=== PATIENT | female | born 1955 | race Caucasian/White ===

== ENCOUNTER → 2018-02-11 10:48 | Outpatient (CLI) | payer MEDICARE, SELFPAY ==
--- NOTE | 2018-02-11 15:52 | PFTCOMP ---
COMPLETE PULMONARY FUNCTION TEST INTERPRETATION Brief HPI: Patient is a 62 year old female, currently under the care of Dr. Gustafson, who presents to [facility] for complete pulmonary function tests secondary to diagnosis of COPD. Respiratory therapist reports good effort and reproducible results. Interpretation: Forced expiration spirometry shows a moderate large airways obstructive ventilatory defect with an FEV1 of 66% predicted. There is a significant bronchodilator response in FEV1 and FVC by ATS criteria. Spirograms are of good quality and plateau slowly, indicating slowly emptying areas of the lungs. The respiratory flow volume loop shows decreased expiratory flow rates at all lung volumes consistent with airway obstruction. Lung volumes by body plethysmography show an elevated total lung capacity at 5.53 L, 159% predicted. FRC and RV are elevated out of proportion. Lung volume measurements are consistent with hyperinflation and air-trapping. Diffusion capacity by carbon monoxide is normal at 101% predicted. The airway resistance is elevated. Compared to previous pulmonary function tests from 10/16/2016, there has been no significant change. Impression: Partially reversible moderate large airways obstructive ventilatory defect resulting in air trapping with hyperinflation. These findings are consistent with a COPD/asthma overlap syndrome.
--- NOTE | 2018-02-11 15:55 | PFTCOMP_ITS ---
COMPLETE PULMONARY FUNCTION TEST INTERPRETATION Brief HPI: Patient is a 62 year old female, currently under the care of Dr. Gustafson , who presents to [facility] for complete pulmonary function tests secondary to diagnosis of COPD. Respiratory therapist reports good effort and reproducible results. Interpretation: Forced expiration spirometry shows a moderate large airways obstructive ventilatory defect with an FEV1 of 66% predicted. There is a significant bronchodilator response in FEV1 and FVC by ATS criteria. Spirograms are of good quality and plateau slowly, indicating slowly emptying areas of the lungs. The respiratory flow volume loop shows decreased expiratory flow rates at all lung volumes consistent with airway obstruction. Lung volumes by body plethysmography show an elevated total lung capacity at 5.53 L, 159% predicted. FRC and RV are elevated out of proportion. Lung volume measurements are consistent with hyperinflation and air-trapping. Diffusion capacity by carbon monoxide is normal at 101% predicted. The airway resistance is elevated. Compared to previous pulmonary function tests from 10/16/2016, there has been no significant change. Impression: Partially reversible moderate large airways obstructive ventilatory defect resulting in air trapping with hyperinflation. These findings are consistent with a COPD/asthma overlap syndrome.
== END ==
PROVIDERS: Family Provider Family Medicine; PCP Family Medicine; Visit Provider Internal Medicine Critical Care Medicine
DX: J44.9 Chronic obstructive pulmonary disease, unspecified (principal)
CPT/HCPCS: 94060; 94726; 94729

== ENCOUNTER → 2018-02-26 07:18 | Outpatient (CLI) | payer MEDICARE, SELFPAY ==
--- NOTE | 2018-02-26 07:20 | CT_ITS ---
STUDY: CT CHEST WITHOUT CONTRAST REASON FOR EXAM: Female, 62 years old. Pulmonary mass RADIATION DOSAGE (If Supplied By Facility): CTDIvol = ( 5.00 ) mGy, DLP = ( 159.13 ) mGycm TECHNIQUE: Transaxial imaging was performed without the administration of intravenous contrast material. Coronal and sagittal reformatted images were created. Individualized dose optimization techniques were used for this CT. COMPARISON: None FINDINGS: There are mild emphysematous changes noted in the lungs. There is a 7 mm spiculated nodule in the lingula (image 59 series 4). There are no pulmonary infiltrates or pleural effusions. There is no pneumothorax. The heart and pericardium are within normal limits. There is no thoracic lymphadenopathy. There is no evidence of thoracic aortic aneurysm. Images through the upper abdomen demonstrate no significant abnormality. There are no destructive osseous lesions. CT/Chest without Contrast IMPRESSION: Mild emphysema. 7 mm spiculated nodule in the lingula. A follow-up CT in 3-6 months is recommended. No pulmonary infiltrates or pleural effusions. Electronically Signed: Cruz Cai, at 17:46 EDT Tel , Service support ,
== END ==
PROVIDERS: Family Provider Family Medicine; PCP Family Medicine; Visit Provider Nurse Practitioner Acute Care
DX: R91.8 Other nonspecific abnormal finding of lung field (principal)
CPT/HCPCS: 71250

== ENCOUNTER → 2018-05-19 07:45 | Outpatient (CLI) | payer MEDICARE, SELFPAY ==
--- NOTE | 2018-05-19 07:46 | CT_ITS ---
STUDY: CT CHEST WITHOUT CONTRAST REASON FOR EXAM: Female, 63 years old. History of lung nodule. RADIATION DOSAGE (If Supplied By Facility): CTDIvol = ( 6.59 ) mGy, DLP = ( 205.78 ) mGycm TECHNIQUE: Transaxial imaging was performed without the administration of intravenous contrast material. Multiplanar coronal and sagittal images were reformatted. Individualized dose optimization techniques were used for this CT. COMPARISON: Comparison is made with prior study dated February 26, 2018. FINDINGS: There is a 1.2 cm hypodense nodule in the inferior aspect of the left lobe of the thyroid. Small bilateral axillary lymph nodes slightly more prominent on the left side. These are unchanged. Hyperinflation. Mild degree of emphysematous changes. There is a 1.1 cm spiculated nodule in the medial apex of the right lung. This is unchanged. The previously seen nodular density in the left upper lobe as decreased slightly in size. It presently measures 5.9 mm. Spiculation persists. No new dominant nodules are seen. There is no demonstrated pleural abnormality. There are calcifications of the coronary arteries. There are multiple small lymph nodes within the mediastinum, which are normal in size and morphology most compatible with reactive lymph hyperplasia. Normal hilar regions. Normal unenhanced pulmonary arteries. Normal aorta arch and descending thoracic aorta. There are multi-level degenerative changes of the thoracic spine. There is no demonstrated abnormality of the visualized upper abdomen. CT/Chest without Contrast IMPRESSION: Hyperinflation. Emphysematous changes. Slightly decrease in size of these. A nodule in the left upper lobe. It presently measures 5.9 mm. Stable 1.1 cm. Greater nodule in the medial aspect of the right lung apex. A 3-6 month follow-up CT scan is recommended. Electronically Signed: Fernando Gomez MD at 13:34 EDT Tel [phone], Service support ,
== END ==
PROVIDERS: Family Provider Family Medicine; PCP Family Medicine; Visit Provider Nurse Practitioner Acute Care
DX: R91.8 Other nonspecific abnormal finding of lung field (principal)
CPT/HCPCS: 71250

== ENCOUNTER 2018-05-20 07:23 | Emergency (ER) | payer MEDICARE, SELFPAY ==
[2018-05-20 07:24] VITALS: BP 175/88; PULSE 93; RESP 16; TEMP 36.7; O2SAT 97; BMI 20.9
--- NOTE | 2018-05-20 08:05 | ED.VISSUMM ---
- ER Visit Summary Date of Service: 05/20/18 Chief Complaint: Esophageal obstruction secondary to food bolus History of Present Illness: The patient is a 63 F who presents because of inability to swallow. She states food is stuck and points to the mid sternum. This is occurred once before. She has been expectorating the entire evening and morning. She has history of COPD. She has no other significant past medical history. She is not allergic to soy products or egg products. No known complication with anesthetics. She denies change in voice or difficulty breathing. Please read written note for complete detail Physical Examination: Vital signs noted and remarkable for an elevated blood pressure 175/88. Patient is expectorating to emesis bag. Head is atraumatic normocephalic. Pupils are equal round reactive. Extraocular muscles are intact. TMs are pearly white with landmarks noted. Nares patent with no drainage. Posterior pharynx without erythema or exudate. Uvula is midline. There is no dysphonia or dysphasia. Trachea is midline. There is no stridor with auscultation of the neck. Heart is regular without murmur, gallop or rub. S1 and S2 are normal. Lungs are clear to auscultation with good movement of air bilaterally. She is alert oriented ?3 with a nonfocal neurologic exam. Test Results: Barium esophagram performed and revealed no acute disease per Dr. Bazan. Dr. Aguiar was made aware of results Emergency Department Course and Treatment: Dr. Aguiar was contacted since she is a patient of Dr. Darvin Gold iii. Plan is to perform EGD with removal of food bolus under sedation. I was informed by nursing staff patient believes she passed the obstructing food bolus. She was given a glass of water which she successfully drank without regurgitation. She still complains of something feeling stuck. She was given a slip for some orange by the nurse which she successfully passed. Dr. Aguiar was made aware of this and requested a barium esophageal swallow. Spoke with control valve technician. She informed me that Dr. Barrett will perform this at 1230. Treatment Plan: Pending results of barium esophageal study. Disposition: Discharge to home with outpatient follow-up with Dr. Aguiar in 1 week Impression: Recurrent esophageal obstruction secondary to food bolus This note was generated with [employer] software. It may contain incorrect words, spelling, and punctuation that were not noted in review of the chart prior to signing ED Disposition - Plan for ED Patient: Disposition: Home or Assisted Living Chief Complaint: Foreign Body Instructions: ED Foreign Body Esophageal Rslv Referrals: Darvin Gold III, MD [Primary Care Provider] - Ian Martinez MD [STAFF PHYSICIAN] - 1 Week Additional Instructions: Call Dr. Ian Martinez's office today to be seen within the next week. You will need further testing done as an outpatient.
[2018-05-20 09:27] VITALS: BP 134/90; PULSE 90; RESP 30
[2018-05-20 10:55] VITALS: BP 131/98; PULSE 94; RESP 15; O2SAT 99
[2018-05-20 12:14] VITALS: BP 132/92; PULSE 93; RESP 13; O2SAT 97
--- NOTE | 2018-05-20 12:28 | RAD_ITS ---
STUDY: X-RAY - ESOPHAGUS (BARIUM SWALLOW) WITH FLUOROSCOPY REASON FOR EXAM: Female, 63 years old. Possible foreign body in the esophagus. TECHNIQUE: 15 view(s) of the esophagus were obtained following swallowing of barium. FLUOROSCOPY TIME (if supplied): (0:52) minutes/seconds COMPARISON: None. FINDINGS: There is no demonstrated esophageal foreign body. There is no demonstrated stricture or mucosal abnormality. Normal gastroesophageal junction, without a demonstrated hiatal hernia. The patient ingested a 12 mm tablet of barium without any difficulty. Normal visualized aortic arch and descending thoracic aorta. Normal visualized pulmonary parenchyma. Dextroscoliosis. RAD/Esophagus Only IMPRESSION: Normal plain film x-ray examination (barium swallow) of the esophagus. Electronically Signed: Fernando Gomez MD at 13:42 EDT Tel [phone], Service support ,
[2018-05-20 13:44] VITALS: BP 118/94; PULSE 81; RESP 16
== END 2018-05-20 13:45 | disposition home or self-care (01) ==
PROVIDERS: Emergency Provider Emergency Medicine; Family Provider Family Medicine; PCP Family Medicine
DX: T18.128A Food in esophagus causing other injury, initial encounter (principal); J44.9 Chronic obstructive pulmonary disease, unspecified; Z87.891 Personal history of nicotine dependence; Z79.51 Long term (current) use of inhaled steroids; Z79.899 Other long term (current) drug therapy
CPT/HCPCS: 74220; 99284; A4216

== ENCOUNTER → 2018-06-16 09:03 | Outpatient (CLI) | payer OTHER, SELFPAY ==
--- NOTE | 2018-06-16 08:56 | PET_ITS ---
EXAMINATION: FDG PET CT INDICATIONS: A 63-year-old female with reported history of pulmonary nodularity. COMPARISON EXAMINATION: Previous FDG PET study report dated 05/02/09, CT of the chest report dated 05/19/18. TECHNIQUE: Following the intravenous administration of 14.76 mCi of F-18 deoxyglucose via the left antecubital fossa, multiplanar image acquisitions of the neck, chest, abdomen and pelvis to level of mid thigh, obtained at one hour post radiopharmaceutical administration contemporaneously interpreted with the current CT of the neck, chest, abdomen and pelvis to level of mid thigh, dated 06/16/18 via coregistration and previous FDG PET study report dated 05/02/09, CT of the chest report dated 05/19/18 reveal: SERUM GLUCOSE LEVEL: 84 mg/dl. HEIGHT: 68 inches. WEIGHT: 100 lbs. FINDINGS: 1. There is no quantitative scintigraphic evidence of abnormal increased glucose metabolism within the context of the bilateral hemithorax pulmonary parenchyma, right-left upper lobes to correlate with structural changes noted on review of CT of the thorax dated 06/16/18. 2. Normal physiologic distribution of the radiopharmaceutical is apparent in the hepatic and splenic parenchyma, both renal units, bladder and visualized intestinal tract. There is uniform distribution of the radiopharmaceutical concentration defined in the visualized cerebellar hemispheres and cerebral cortical structures.? Diffuse intestinal tract activity is noted throughout all four quadrants of the abdominal-pelvic retroperitoneum, mesentery consistent with normal physiologic distribution of the radiopharmaceutical. Prominent glucose metabolism is defined in the proximal-distal esophagus. The previously described left upper lung field hypermetabolic focus noted on the FDG PET study report dated 05/02/09 is not apparent on the current examination. A linear increase in glucose metabolism is demonstrated in the lower pelvis caudal to the urinary bladder, which appears to represent physiologic distribution of the radiotracer within the urethra. Prominent glucose metabolism is manifest in the lower pelvis, which appears contiguous to the urethra most consistent with pooling of the radiopharmaceutical. Pertinent CT findings are as follows. CHEST: Atherosclerotic calcification is defined in the thoracic aorta without evidence of dilatation, aneurysm formation. Bilateral axillary soft tissue densities demonstrate no evidence of quantitatively significant increased glucose metabolism. Significant emphysematous change is noted in the bilateral upper-mid lung zones. Subcentimeter mediastinal soft tissue is ametabolic. ABDOMEN AND PELVIS: Atherosclerotic calcification is defined in the abdominal aorta without evidence of dilatation, aneurysm formation. Pelvic arterial calcification is demonstrated. Right-left inguinal soft tissue densities are non-glucose avid. Calcifications are defined in the bilateral lower hemipelvis. SKELETAL: Degenerative changes defined in the cervical, thoracic and lumbar spine demonstrate no evidence for glucose hypermetabolism. PET/PET/CT Tumor Base -Thigh Init IMPRESSION: 1. NEGATIVE EXAMINATION. There is no quantitative scintigraphic evidence of abnormal increased glucose metabolism within the context of the bilateral hemithorax pulmonary parenchyma, right-left upper lobes to correlate with structural changes noted on review of CT of the thorax dated 06/16/18. 2. Anatomic stability may be ensured in the ametabolic bilateral hemithorax pulmonary parenchymal densities with repeat CT of the thorax in three-six months. (Joes Elias, Seminars in Thoracic and Cardiovascular Surgery 14:292, 2002). 3. Overall, compared to the prior FDG PET study report dated 05/02/09, there is current absence of defined viable neoplastic disease. Electronic Signature Ian Hayes D.O. Electronically Signed: Ian Hayes DO at 23:15 EDT Tel , Service support ,
== END ==
PROVIDERS: Family Provider Family Medicine; PCP Family Medicine; Visit Provider Nurse Practitioner Acute Care
DX: R91.8 Other nonspecific abnormal finding of lung field (principal)
CPT/HCPCS: 78815; A9552

== ENCOUNTER 2018-06-30 06:27 | Day surgery (SDC) | payer OTHER, SELFPAY ==
--- NOTE | 2018-06-27 13:48 | PCM.HP.BLA ---
History and Physical Date of Admission: 06/30/18 HISTORY AND PHYSICAL ? Ana Ramirez 1955 ? REFERRING PHYSICIAN: ??Darvin Gold III, MD ? CHIEF COMPLAINT: ??Consult (Consult EGD - food stuck in esoph) ? HPI: The patient is a 63 year old female referred for endoscopy. ?Ana notes 3 episodes of esophageal foreign bodies. ?One time, she had to have this removed endoscopically. ?Another time was able to pass spontaneously after some time. ?More recently, she presented to [facility] after an esophageal foreign body for proximally 12 hours. ?We'll need nurse prepping. ?After was contacted to present for emergent upper endoscopy, she noted the food didn't pass spontaneously. ?Barium esophagram was obtained which demonstrated no retained foreign food at that time. ?The patient instructed to follow-up in my office for plans for outpatient upper endoscopy. ? Ana has ?undergone prior endoscopy. ?She underwent endoscopy in 2016 for a complaint of indigestion by Dr. Mick Nicholas. ?Gastric biopsies were obtained for finding of mild stomach irritation but no esophageal biopsies were performed. ?Gastric biopsies demonstrated no abnormalities. ?Colonoscopy was also performed at that time which was normal and recommendation 10 year follow-up was made. ? PAST?MEDICAL?HISTORY PAST MEDICAL HISTORY Diagnosis Date ? Abdominal pain, other specified site ? ? Arnold-Chiari malformation (HCC) 09/14/2014 ? See Scanned documents ? 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 ? Asthma-COPD overlap syndrome (HCC) ? ? Compression of brain (HCC) ? ? COPD (chronic obstructive pulmonary disease) (HCC) ? ? 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 Disorder of bone and cartilage, unspecified ? ? Emphysema of lung ([facility]) 03/18/2015 ? Essential hypertension, benign 02/21/2015 ? Intervertebral cervical disc disorder with myelopathy, cervical region ? ? Lung mass 09/07/2011 ? MSSA (methicillin susceptible Staphylococcus aureus) septicemia ([facility]) [id number] ? Nicotine dependence, cigarettes, uncomplicated ? ? Osteoporosis 09/01/2015 ? Overactive bladder 09/01/2015 ? Paralytic ileus ([facility]) ? ? Retinal detachment ? ? in Right Eye ? Sleep disorder breathing ? ? Thoracic myelopathy 09/14/2014 ? Secondard to epidural abscess ? Unspecified constipation ? ? ? PAST?SURGICAL?HISTORY PAST SURGICAL HISTORY Procedure Laterality Date ? COLONOSCOP W/ OR W/O [facility] SPEC ? 08/19/06 ? Repeat in ? COLONOSCOP W/ OR W/O [facility] SPEC ? 06/27/2016 ? Colonoscopy ? CRANIOPLASTY SKULL DEF/REPAIR/ BRAIN ? 09/14/2014 ? See scanned documents - status post ? EGD W/O OR W/BRUSH/WASH ? 06/27/2016 ? EGD ? I&D ABSCESS CMPLX/MULT ? 07/2013 ? Epidural abscess- MSSA ? LIGATE FALLOPIAN TUBE ? ? ? Tubal ligation ? PAST SURGICAL HISTORY OF ? ? ? spinal surgery ? PAST SURGICAL HISTORY OF ? ? retinal detachment OD, (2 tears) ? PAST SURGICAL HISTORY OF ? 2012 ? back surgery ? ? CURRENT?MEDICATIONS ? Current Outpatient Prescriptions: predniSONE (DELTASONE) 10 mg tablet Take 4 tabs daily x 3 days, then 3 tabs x 3 days, ?2 tabs x 3 days, then 1 tab x3 days with food. umeclidinium (INCRUSE ELLIPTA) 62.5 mcg/actuation inhaler DAILY fluticasone-vilanterol (BREO ELLIPTA) 100-25 mcg/dose inhaler Q24H valACYclovir (VALTREX) 1 gram tab Take 1 tablet by mouth once daily. traZODone (DESYREL) 100 mg tablet Take 0.5-1 tablets by mouth daily at bedtime. albuterol HFA (PROAIR HFA) 90 mcg/actuation inhaler Inhale 2 Puffs as instructed every 4 hours as needed for Wheezing/Shortness of Breath. Melatonin 5 mg cap 5 mg by mouth taken 2 hours prior to bedtime Ascorbic Acid (VITAMIN C) 1,000 mg TbER Take ?by mouth. estradiol (ESTRACE) 0.01 % (0.1 mg/gram) vaginal cream Apply small amount at vaginal opening 3 nights per week Calcium Carb-Cholecalciferol (CALCIUM 600 WITH VITAMIN D3) 600-200 mg-unit ORAL Tab Take one(1) tablet two(2) times daily. doxycycline monohydrate (MONODOX) 100 mg capsule Take 1 capsule by mouth twice daily for 10 days. umeclidinium-vilanterol (ANORO ELLIPTA) 62.5-25 mcg/actuation inhaler Inhale 1 Inhalation as instructed once daily. ? No current facility-administered medications for this visit. ? ALLERGIES: Fish; Horse Serum [Other]; Lisinopril; Seafood [Other] ? PERSONAL HISTORY: SOCIAL?HISTORY Social History ??Marital status: ?Spouse name: JESSE ?Years of education: 14 ?Number of children: 0 ? Occupational History Occupation ?Employer ?Comment ? Disability ? Social History Main Topics ??Smoking status: Former Smoker ?Packs/day: 1.50 ?Years: 15.00 ?Types: Cigarettes ?Quit date: 07/31/2005 ??Smokeless tobacco: Never Used ?Alcohol use: Yes ?15.0 - 22.5 oz/week ?Cans of Beer (12oz): 10 - 15 per week ?Comment: 5-8 beers daily ??Drug use: No ?Sexual activity: Yes ?Partners with: Male ? control/protection: Surgical ?Comment: Tubal Ligation ? ? FAMILY HISTORY: FAMILY?HISTORY FAMILY HISTORY Problem Relation Age of Onset ? Hypertension Mother ? ? other (cerebral aneurysm) Mother ? ? Hypertension Father ? ? COPD Father ? ? Cancer Father ?Bladder Cancer ? other (Past medical history) Father ?abdominal aneurysm/bladder cancer ? other (aortic aneurysm) Father ? ? REVIEW OF SYMPTOMS: ??The review of systems data was entered by the nurse and reviewed by me ? Nursing Notes: Boby Bush MANDIE ?05/29/2018 ?1:32 PM ?Signed REVIEW OF SYSTEMS: ?General:???The patient notes fatigue, denies weight loss, denies weight gain, denies feeling hot, and denies feelings of cold. ?Eyes: ?The patient denies glaucoma, NOTES eye injury/surgery, wears glasses or contacts. ?Ear/Nose/Throat: ?The patient denies allergies, denies hayfever, denies ear infections, and denies bloody noses. ?Cardiovascular: ?The patient NOTES chest pain, denies heart disease, denies high blood pressure,denies cardiac stent, denies prior heart attack, denies irregular heart beat, denies high cholesterol, ?denies poor circulation, denies heart failure, other cardiac issues, NOTES claudication, denies cold feet, denies peripheral arterial stent. ?Respiratory: ?The patient denies tuberculosis, denies pneumonia, NOTES frequent cough, denies pulmonary embolism, NOTES shortness of breath, and denies coughing up blood. ?Gastrointestinal: ?The patient denies difficulty swallowing, denies acid reflux, denies ulcers, denies vomiting, denies jaundice/hepatitis, denies gallbladder problems, denies black or tarry stools, denies hemorrhoids, denies bleeding from rectum, denies diverticulitis, denies constipation, denies diarrhea, denies loss of stool control, and denies hernias. ?Kidney/Bladder: ?The patient denies kidney stones, denies urine infections, and NOTES bloody urine. ?Skin: ?The patient denies a history of skin cancer, denies bleeding/changing moles, and denies a history of skin rash. ?Neurologic: ?The patient denies a history of epilepsy/convulsions, denies headaches, denies head/spinal injuries, and denies stroke/TIA. ?Psychiatric: ?The patient denies psychiatric medications, denies depression, and denies voices, denies substance abuse. ?Endocrine: ?The patient NOTES thyroid disorders, denies diabetes, and denies hormonal problems. ?Hematologic: ?The patient denies a history of bruising, denies bleeding, and denies anemia, denies blood clots. ?Infections: ?The patient denies a history of measles and mumps, denies rheumatic fever, and denies sexually transmitted diseases. ?Musculoskeletal: ?The patient NOTES back pain/injury, denies back problems, denies sciatica, denies knee/foot trouble, NOTES arthritis, or denies gout. ? ? When was patient's last Mammogram screening? 12/18 ? ?Last Colonoscopy: ?06/17 ? Boby Bush LPN ? PHYSICAL EXAMINATION: ? General: ?The patient is 63 year old female, well nourished, well hydrated in no acute distress. ?The patient is oriented to time, place, and person. ? VITALS: Blood pressure 124/62, pulse 68, last menstrual period 03/23/2007.?There is no height or weight on file to calculate BMI.? ? HEENT: ?Normal cephalic, ataumatic, pupils are equally round, sclera are anicteric, mucous membranes are moist, oropharynx is clear. ?Neck has no masses, asymmetry or lymphadenopathy. ?Thyroid is unremarkable. ? Respiratory: ?Clear to auscultation and percussion. ?Normal respiratory excursion and pattern. ? Cardiac: ?Examination is regular rate and rhythm. ? Abdominal exam: ?Soft, nontender, ?with no palpable masses. ?No hepatosplenomegaly. ?No palpable hernias. ? Rectal exam: exam deferred ? Extremities: ?no clubbing, cyanosis or edema. ?No adenopathy. ? Other: ? LABORATORY VALUES: As Noted ? RADIOLOGIC STUDIES: ?As Noted ? Assessment ? IMPRESSION: 3 episodes of esophageal foreign body ? PLAN: ?I plan to perform upper?endoscopy. ??We discussed the risks and benefits of the planned endoscopy. ?I have informed the patient that complications can occur including failure to complete the endoscopy and perforation. ?The patient had the opportunity to ask questions concerning the planned endoscopy. ?My staff has also explained the procedure to the patient in understandable terms and has given the patient printed material concerning the procedure. ?The patient freely consents to surgery. ? ? ? The patient has medical comorbidities for which I plan to perform the procedure under monitored anesthetic care. ? Diagnoses: (T18.108D) Esophageal foreign body, subsequent encounter ?(primary encounter diagnosis) ? My findings have been communicated to Dr. Kendra Gold III MD?via shared medical record. ?This note will be forwarded to Dr. Darvin Gold III MD. ?? Return to Clinic: The patient is instructed to follow-up with me after the testing has been completed. ? Ian Martinez MD
[2018-06-30] VITALS (7 sets, daily range): BP systolic 105–138; BP diastolic 64–87; PULSE 75–89; RESP 14–18; TEMP 36.4–36.8; O2SAT 94–98; BMI 22.4
--- NOTE | 2018-06-30 | IMM_PTH ---
PATIENT: JEYSON MARTINEZ LOC: EN U#:[id number] AGE/SX: 63/F ROOM: RE06/30/[address]: Dr. Ian Martinez MD : 1955 BED: DIS: 06/30/2018 SPEC #: [id number] RECD: 07/01/18 10:07 STATUS: NICOLE HERBERT #: [id number] MICH: 06/30/18 00:[address]: Ian Martinez DEPT: IMMUNOHISTOCHEMISTRY RECD BY: Isaura Ying ENTERED: 07/01/18 10:08 SP TYPE: IMMUNO OTHR DR: Dr. Darvin Gold III, MD Tissues: A - Stomach, NOS Procedures: H Pylori (initial) PHYSICIAN & INSTITUTION [place] [id number] SPECIMEN INFORMATION: Tissue Source: A - Antral biopsy Clinical Info: History of esophageal foreign body Specimen Number: [id number] CPT code: 84902 METHODOLOGY: Deparaffinized sections of prefer/formalin-fixed tissue or PAP/DQ stained slides are incubated with monoclonal/polyclonal antibodies/oligonucleotide probes. Localization is made via biotin free immunoperoxidase method. Appropriate controls are performed and reacted as expected. Results on target cell population are indicated in the following table: RESULTS: ANTIBODY / CLONE RESULT Block A H Pylori (polyclonal) negative These tests were developed and their performance characteristics determined by [facility]. They may not have been cleared or approved by the U.S. Food and Drug Administration. The FDA has determined that such clearance or approval is not necessary. INTERPRETATION: A. Antral biopsy: Negative for Helicobacter pylori organisms. SJ:patty 07/01/18
--- NOTE | 2018-06-30 07:30 | EGD_PTH ---
PATIENT: JEYSON MARTINEZ LOC: EN U#:[id number] AGE/SX: 63/F ROOM: RE06/30/[address]: Dr. Ian Martinez MD : 1955 BED: DIS: 06/30/2018 SPEC #: [id number] RECD: 06/30/18 09:04 STATUS: NICOLE HERBERT #: [id number] MICH: 06/30/18 07:[address]: Ian Martinez DEPT: SURGICAL PATHOLOGY RECD BY: Aftab Argueta ENTERED: 06/30/18 10:13 SP TYPE: EGD BIOPSY OT DR: Dr. Darvin Gold III, MD Tissues: A - Gastric mucous membrane B - Gastric mucous membrane C - Esophageal mucous membrane Procedures: Surgery Specimen Level II Surgery Specimen Level IV Alcian Blue/PAS (control) HEADER OPERATION: EGD ([facility] [place]) PRE-OP DIAGNOSIS: History of esophageal foreign body TISSUE SUBMITTED: A - Antral biopsy for pathology, B - GE junction biopsy, C - Mid esophageal biopsy MICROSCOPIC DIAGNOSIS A. Antral biopsy: Mild gastritis. B. GE junction, biopsy: Fragments of gastroesophageal mucosa with chronic inflammation. Intestinal metaplasia (goblet cell metaplasia) is not identified. See comment. C. Mid esophageal biopsy: Fragments of squamous epithelium with minimal chronic inflammation. SJ:rg 07/01/18 COMMENT A. The results of immunohistochemistry for Helicobacter pylori will be reported separately ([id number]). B. Alcian blue/PAS stain with matched control is used in the evaluation of the specimen. MICROSCOPIC DESCRIPTION Slides are reviewed. A. The specimen shows fragments of gastric mucosa with chronic inflammatory cell infiltrates in the lamina propria consisting of lymphocytes and plasma cells, consistent with mild chronic gastritis. GROSS DESCRIPTION A - Received in fixative is one container labeled with the patient's name and designated antral biopsy. The specimen consists of one irregular fragment of light hurley soft tissue that measures 0.4 x 0.3 x 0.1 cm. The specimen is totally submitted in one cassette. B - Received in fixative is one container labeled with the patient's name and designated GE junction biopsy. The specimen consists of two irregular fragments of light hurley soft tissue that in aggregate measure 0.3 x 0.2 x 0.1 cm. The specimen is totally submitted in one cassette. C - Received in fixative is one container labeled with the patient's name and designated mid esophageal biopsy. The specimen consists of two irregular fragments of light hurley soft tissue that in aggregate measure 0.3 x 0.3 x 0.1 cm. The specimen is totally submitted in one cassette. / SJ:patty 06/30/18 TC:3 CPT: 06274 x3, 67892
--- NOTE | 2018-06-30 07:56 | OP.ENDO_ITS ---
Patient Name: Ana Ramirez Procedure Date: 06/30/2018 7:31 AM Date of : 1955 Age: 63 Procedure: Upper GI endoscopy Indications: Foreign body in the esophagus Providers: Ian Martinez MD Referring MD: Ian Martinez MD Medicines: Monitored Anesthesia Care Patient Profile: This is a 63 year old female. Refer to note in patient chart for documentation of history and physical. Complications: No immediate complications. Procedure: Pre-Anesthesia Assessment: - Prior to the procedure, a History and Physical was performed, and patient medications and allergies were reviewed. The patient is competent. The risks and benefits of the procedure and the sedation options and risks were discussed with the patient. All questions were answered and informed consent was obtained. Patient identification and proposed procedure were verified by the physician, the nurse and the materials and corrosion engineer in the procedure room. Mental Status Examination: normal. Airway Examination: normal oropharyngeal airway and neck mobility. Respiratory Examination: rhonchi. CV Examination: normal. Prophylactic Antibiotics: The patient does not require prophylactic antibiotics. Prior Anticoagulants: The patient has taken no previous anticoagulant or antiplatelet agents. ASA Grade Assessment: III - A patient with severe systemic disease. After reviewing the risks and benefits, the patient was deemed in satisfactory condition to undergo the procedure. The anesthesia plan was to use monitored anesthesia care (MAC). Immediately prior to administration of medications, the patient was re-assessed for adequacy to receive sedatives. The heart rate, respiratory rate, oxygen saturations, blood pressure, adequacy of pulmonary ventilation, and response to care were monitored throughout the procedure. The physical status of the patient was re-assessed after the procedure. After obtaining informed consent, the endoscope was passed under direct vision. Throughout the procedure, the patient's blood pressure, pulse, and oxygen saturations were monitored continuously. The gastroscope was introduced through the mouth, and advanced to the jejunum. The upper GI endoscopy was accomplished without difficulty. The patient tolerated the procedure well. Scope In: 7:43:40 AM Scope Out: 7:48:29 AM Total Procedure Duration Time 0 hours 4 minutes 49 seconds Findings: The examined jejunum was normal. The examined duodenum was normal. Scattered moderate inflammation characterized by erosions, erythema, friability, granularity and shallow ulcerations was found in the gastric antrum. A small hiatal hernia was present. Non-severe esophagitis with no bleeding was found. Biopsies were taken with a cold forceps for histology. The middle third of the esophagus was normal. Biopsies were taken with a cold forceps for histology. Impression: - Normal examined jejunum. - Normal examined duodenum. - Gastritis. - Small hiatal hernia. - Non-severe reflux esophagitis. Biopsied. - Normal middle third of esophagus. Biopsied. Recommendation: - Use Prilosec (omeprazole) 40 mg PO BID. - Resume previous diet. - Return to my office in 1 week. - Continue present medications. Procedure Code(s): --- Professional --- 48087, Esophagogastroduodenoscopy, flexible, transoral; with biopsy, single or multiple CPT copyright 2017 [employer]. All rights reserved. The codes documented in this report are preliminary and upon steam box tender review may be revised to meet current compliance requirements. Ian Martinez MD 06/30/2018 7:55:51 AM This report has been signed electronically. Number of Addenda: 0 Note Initiated On: 06/30/2018 7:31 AM
== END 2018-06-30 08:33 | disposition home or self-care (01) ==
LOC: EN 06:28 → AC 06:29
PROVIDERS: Family Provider Family Medicine; PCP Family Medicine; Referring Provider Surgery; Visit Provider Surgery
PROC: 0DJ08ZZ Inspection of Upper Intestinal Tract, Via Natural or Artificial Opening Endoscopic (ICD-10-PCS; CPT 43235; principal; 2018-06-30 07:25)
DX: K29.70 Gastritis, unspecified, without bleeding (principal); K20.9 Esophagitis, unspecified; K44.9 Diaphragmatic hernia without obstruction or gangrene; T18.128D Food in esophagus causing other injury, subsequent encounter; Q07.00 Arnold-Chiari syndrome without spina bifida or hydrocephalus; G93.5 Compression of brain; J45.909 Unspecified asthma, uncomplicated; J44.9 Chronic obstructive pulmonary disease, unspecified; M47.816 Spondylosis without myelopathy or radiculopathy, lumbar region; I10 Essential (primary) hypertension; Z87.891 Personal history of nicotine dependence; Z79.52 Long term (current) use of systemic steroids; Z79.51 Long term (current) use of inhaled steroids; Z79.899 Other long term (current) drug therapy
CPT/HCPCS: 43239; 88302; 88305; 88342; J7120

== ENCOUNTER → 2018-12-02 11:01 | Outpatient (CLI) | payer OTHER, SELFPAY ==
[2018-06-30 06:43] VITALS: BMI 22.4
--- NOTE | 2018-12-02 11:05 | RAD_ITS ---
STUDY: X-RAY CHEST REASON FOR EXAM: Female, 63 years old. Chest tightness. Cough. TECHNIQUE: PA and lateral views of the chest. COMPARISON: Comparison is made with prior study dated March 17, 2017. FINDINGS: Hyperinflation. There is no demonstrated pleural abnormality. Normal size heart. Normal mediastinum and francois. Normal visualized pulmonary arteries. Normal visualized aortic arch and descending thoracic aorta. There are diffuse degenerative changes of the visualized thoracic spine. Mild dextroscoliosis. Normal visualized ribs, clavicles, and shoulders. There is no demonstrated abnormality of the visualized soft tissue structures of the upper abdomen. RAD/Chest PA and Lateral IMPRESSION: Hyperinflation. No acute abnormality is seen. Electronically Signed: Fernando Gomez, at 11:28 EDT , Service support ,
== END ==
PROVIDERS: Family Provider Family Medicine; PCP Family Medicine; Referring Provider Nurse Practitioner Acute Care; Visit Provider Nurse Practitioner Acute Care
DX: R06.09 Other forms of dyspnea (principal)
CPT/HCPCS: 71046

== ENCOUNTER → 2019-02-26 | Outpatient (CLI) | payer MEDICARE, SELFPAY ==
[2018-12-22 10:12] VITALS: BMI 22.3
--- NOTE | 2019-02-26 14:48 | PFTCOMP ---
COMPLETE PULMONARY FUNCTION TEST INTERPRETATION Brief HPI: Patient is a 63 year old female, currently under the care of Dr. Gustafson, who presents to [facility] for complete pulmonary function tests secondary to diagnosis of COPD. Respiratory therapist reports good effort and reproducible results. Interpretation: Forced expiration spirometry shows a moderate large airways obstructive ventilatory defect with an FEV1 of 64% predicted. There is no significant bronchodilator response by strict ATS criteria. Spirograms are of good quality and plateau slowly, indicating slowly emptying areas of the lungs. The respiratory flow volume loop shows decreased expiratory flow rates at all lung volumes consistent with airway obstruction. Lung volumes by body plethysmography show an elevated total lung capacity at 4.87 L, 126% predicted. All other lung volumes are increased symmetrically. Diffusion capacity by carbon monoxide is normal at 95% predicted. The airway resistance is elevated. Compared to previous pulmonary function tests from 02/11/2018, there is been significant improvement in FVC, FEV1 and air trapping by 22%, 30% and 12% respectively. Impression: Irreversible moderate large airways obstructive ventilatory defect with preserved diffusing capacity, and a pattern consistent with chronic bronchitis.
== END | disposition home or self-care (01) ==
PROVIDERS: Family Provider Family Medicine; PCP Family Medicine; Referring Provider Nurse Practitioner Acute Care; Visit Provider Nurse Practitioner Acute Care
DX: J44.9 Chronic obstructive pulmonary disease, unspecified (principal)
CPT/HCPCS: 94060; 94726; 94729

== ENCOUNTER → 2019-03-02 | Outpatient (CLI) | payer MEDICARE, SELFPAY ==
[2018-12-22 10:12] VITALS: BMI 22.3
[2019-03-02 11:23] VITALS: PULSE 83; PULSE 87; PULSE 91; PULSE 96; PULSE 97; O2SAT 93; O2SAT 94; O2SAT 95; O2SAT 96; O2SAT 98
--- NOTE | 2019-03-02 14:29 | PCM.PSN.6M ---
PSN 6 Minute Walk Test - 6 Minute Walk Test 6 Minute Walk Test: 6 Minute Walk Test PSN:6-Minute Walk Test Start: 03/02/19 11:23 Freq: Status: Active Protocol: RESP.6MINW Document 03/02/19 11:23 FRANKLIN (Rec: 03/02/19 11:25 FRANKLIN [id number]) 6 Minute Walk Test Date Performed 03/02/19 Time Performed 11:00 Height 4 ft 9 in Weight: 97 lb Weight in Pounds 97.[address]: Sierra Dee Assistive device used: None Pre-test Oxygen Delivery Method Room Air Pulse Ox (%) 93 Pulse Rate (60-100 beats/min) 87 Dyspnea Sandeep Scale (0-10) 0 Exertion Sandeep Scale (6-20) 6 1st minute Oxygen Delivery Method Room Air Pulse Ox (%) 96 Pulse Rate (60-100 beats/min) 91 2nd minute Oxygen Delivery Method Room Air Pulse Ox (%) 93 Pulse Rate (60-100 beats/min) 96 3rd minute Oxygen Delivery Method Room Air Pulse Ox (%) 94 Pulse Rate (60-100 beats/min) 97 4th minute Oxygen Delivery Method Room Air Pulse Ox (%) 95 Pulse Rate (60-100 beats/min) 96 5th minute Oxygen Delivery Method Room Air Pulse Ox (%) 94 Pulse Rate (60-100 beats/min) 97 6th minute Oxygen Delivery Method Room Air Pulse Ox (%) 96 Pulse Rate (60-100 beats/min) 96 Dyspnea Sandeep Scale (0-10) 1 Exertion Sandeep Scale (6-20) 13 Post-test Oxygen Delivery Method Room Air Pulse Ox (%) 98 Pulse Rate (60-100 beats/min) 83 Full Laps Walked 19 Partial Lap, Number of Tiles Walked 21 Total Distance Walked (ft) 1142 - Interpretation Interpretation: The patient ambulated 1142 feet over the course of 6 minutes beginning on room air without assistive devices or breaks. Pretesting oxygen saturation was noted to be 93% on room air. With ambulation, the madeline oxygen saturation was 93%. There was no significant exertional oxygen desaturation. - Recommendations Recommendations: There is no indication for the use of supplemental oxygen at this time.
== END | disposition home or self-care (01) ==
PROVIDERS: Family Provider Family Medicine; PCP Family Medicine; Referring Provider Nurse Practitioner Acute Care; Visit Provider Nurse Practitioner Acute Care
DX: J44.9 Chronic obstructive pulmonary disease, unspecified (principal)
CPT/HCPCS: 94618

== ENCOUNTER → 2019-05-07 | Outpatient (CLI) | payer MEDICARE, SELFPAY ==
[2019-04-08 10:46] VITALS: BMI 21.2
--- NOTE | 2019-05-07 12:47 | CT_ITS ---
STUDY: LOW DOSE CT LUNG CANCER SCREENING REASON FOR EXAM: Female, 64 years old. Previous smoker, 2 packs per day x40 years, quit 4 years ago RADIATION DOSAGE (If Supplied By Facility): CTDIvol = ( 1.70 ) mGy, DLP = ( 47.02 ) mGycm TECHNIQUE: No contrast was administered. Low dose technique was utilized (average mAS-38 and kVp 120). 1.25 mm axial source images with a slice interval of 1.25-mm were reconstructed in lung windows. 2.5 mm axial source images with a slice interval of 2.5-mm were reconstructed in lung windows. 5.0 mm axial source images with a slice interval of 5.0-mm were reconstructed in soft tissue windows. Nodule measured using lung windows on PACS and/or independent workstation with automated measurement of minimum and maximum diameter. Nodule measurement reported as average diameter rounded to the nearest whole number. Growth is defined as an increase ins size of greater than 1.5 mm. COMPARISON: 05/19/2018 NODULES: There is a stable 1.1 cm spiculated nodule in the medial apex of the right lung which may represent pleural scarring. There is also a noncalcified 0.82 cm nodule in the left upper lobe centrally unchanged from previous studies. There is underlying emphysema without a superimposed infiltrate or effusion. Endobronchial lesion: None Aorta: Peripheral calcifications Coronary arteries: None Heart: Unremarkable Pulmonary artery: Unremarkable Mediastinal nodes: None Other chest and abdominal findings: Degenerative bony changes CT/Low Dose CT Lung Screening IMPRESSION: Lung-RADS category 2 - Continue annual screening with LDCT in 12 months. Stable noncalcified nodules in the right apex and left upper lobe. Underlying emphysema No significant interval change IMPORTANT NOTES FOR USE: ACR Lung-RADS Version 1.0 Assessment Categories Release Date: December 28, 2013 Category: Coded 0-4 bases on nodule(s) with highest degree of suspicion. Negative screen is defined as categories 1 and 2; a positive screen is defined as categories 3 and 4. Category 3 and 4A nodules that are unchanged on interval CT should be coded as category 2, and individuals returned to screening in 12 months. Category 4X: Category 3 or 4 nodules with additional imaging findings that increase the suspicion of lung cancer, such as spiculation, GGN that doubles in size in 1 year, enlarged lymph notes, etc. Category Modifiers: S (significant finding unrelated to lung cancer) and C (prior history of treated lung cancer) may be added to the 0-4 Lung-RADS Electronically Signed: Santi Person MD at 13:34 EDT , Service support ,
== END | disposition home or self-care (01) ==
LOC: CT 12:46
PROVIDERS: Family Provider Family Medicine; PCP Family Medicine; Referring Provider Internal Medicine Critical Care Medicine; Visit Provider Internal Medicine Critical Care Medicine
DX: R91.1 Solitary pulmonary nodule (principal); Z12.2 Encounter for screening for malignant neoplasm of respiratory organs; Z87.891 Personal history of nicotine dependence
CPT/HCPCS: G0297

== ENCOUNTER → 2019-09-03 11:40 | Outpatient (CLI) | payer MEDICARE, SELFPAY ==
[2019-04-08 10:46] VITALS: BMI 21.2
[2019-09-03 14:15] LABS: Absolute Lymphocyte Count 1.68 X10^3/uL (0.83-4.51); Absolute Neutrophil Count 5.1 X10^3/uL (2.0-7.7); Basophil# 0.08 X10^3/uL; Eosinophil# 0.31 X10^3/uL; Eosinophils% 3.8 % (0-5); Hematocrit 45.9 % (37-47); Hemoglobin 15.1 g/dL (12.0-15.0); Lymphocyte # 1.68 X10^3/ul (4.0); Lymphocyte % 20.8 % (19-41); Mean Corp Hgb Conc 32.9 g/dL (32-36); Mean Corpuscular Hgb 33.6 pg (27.0-32.0); Mean Platelet Vol. 9.6 fl (6.2-12.0); Monocyte# 0.85 X10^3/uL; Monocyte% 10.5 % (0-10); NRBC Flagged by Analyzer 0 % (0-5); Neutrophil # 5.12 X10^3/uL (2.7-7.7); Neutrophil % 63.7 % (47-70); Platelet Count 297 K/mm3 (150-450); RBC Distribution Width CV 12.4 % (11.6-14.6); RBC Distribution Width SD 46.5 fl (35.1-43.9); White Blood Count 8.1 K/mm3 (4.4-11.0)
[2019-09-03 14:28] LABS: ALB/GLOB Ratio 1.1 RATIO (0.9-2.4); AST(SGOT) 19 U/L (15-37); Alanine Aminotransfer ALT/SGPT 29 U/L (13-56); Alkaline Phosphatase 50 U/L (45-117); Anion Gap 6 (5-15); BUN 17 mg/dL (7-18); BUN/Creat Ratio 22.8 RATIO (10-20); Calcium,Total 9.3 mg/dL (8.5-10.1); Chloride 105 mmol/L (98-107); Creatinine, Serum 0.75 mg/dL (0.55-1.02); EST Glomerular Filtration Rate 83 mL/min (>60); Est Glom Filt Rate - Afr Amer 101 mL/min (>60); Ferritin 55 ng/mL (8-252); Globulin 3.5 g/dL (2.2-4.2); Glucose 91 mg/dL (74-106); Iron 96 ug/dL (50-170); Iron Binding Capacity,Total 356 ug/dL (250-450); Potassium 4.1 mmol/L (3.5-5.1); Protein, Total 7.5 g/dL (6.4-8.2); Sodium Level 139 mmol/L (136-145); T4 Free Direct 1.01 ng/dL (0.76-1.46); Thyroid Stim Hormone (TSH) 0.94 uIU/mL (0.358-3.74)
== END ==
PROVIDERS: Family Provider Family Medicine; PCP Family Medicine; Referring Provider Nurse Practitioner Family; Visit Provider Nurse Practitioner Family
DX: L65.0 Telogen effluvium (principal)
CPT/HCPCS: 36415; 80053; 82728; 83540; 83550; 84439; 84443; 85025

== ENCOUNTER → 2019-10-22 | Outpatient (CLI) | payer MEDICARE, SELFPAY ==
[2019-10-12 08:24] VITALS: BMI 21.2
--- NOTE | 2019-10-22 08:19 | CT_ITS ---
STUDY: LOW DOSE CT LUNG CANCER SCREENING REASON FOR EXAM: Female, 64 years old. TOBACCO ABUSE -- 1ppd x40 years -- quit x4 years ago -- copd, asthma RADIATION DOSAGE (If Supplied By Facility): CTDIvol = ( 1.70 ) mGy, DLP = ( 49.79 ) mGycm TECHNIQUE: No contrast was administered. Low dose technique was utilized (average mAS-38 and kVp 120). 1.25 mm axial source images with a slice interval of 1.25-mm were reconstructed in lung windows. 2.5 mm axial source images with a slice interval of 2.5-mm were reconstructed in lung windows. 5.0 mm axial source images with a slice interval of 5.0-mm were reconstructed in soft tissue windows. Nodule measured using lung windows on PACS and/or independent workstation with automated measurement of minimum and maximum diameter. Nodule measurement reported as average diameter rounded to the nearest whole number. Growth is defined as an increase ins size of greater than 1.5 mm. COMPARISON: Comparison is made with prior study dated May 07, 2019. NODULES: Stable 1.1 sign is speculated nodule in the medial aspect of the right lung apex. This most likely secondary to scarring. Stable noncalcified 8.2 mm nodule in the left upper lobe. Emphysema: Emphysematous changes. Endobronchial lesion: None Aorta: Minimal atherosclerotic calcification of the aortic arch. Coronary arteries: No significant calcification. Mediastinal nodes: Small benign-appearing mediastinal lymph nodes. Other chest and abdominal findings: Degenerative changes of the thoracic spine. CT/Low Dose CT Lung Screening IMPRESSION: Lung-RADS category 2 - Continue annual screening with LDCT in 12 months. IMPORTANT NOTES FOR USE: ACR Lung-RADS Version 1.0 Assessment Categories Release Date: December 28, 2013 Category: Coded 0-4 bases on nodule(s) with highest degree of suspicion. Negative screen is defined as categories 1 and 2; a positive screen is defined as categories 3 and 4. Category 3 and 4A nodules that are unchanged on interval CT should be coded as category 2, and individuals returned to screening in 12 months. Category 4X: Category 3 or 4 nodules with additional imaging findings that increase the suspicion of lung cancer, such as spiculation, GGN that doubles in size in 1 year, enlarged lymph notes, etc. Category Modifiers: S (significant finding unrelated to lung cancer) and C (prior history of treated lung cancer) may be added to the 0-4 Lung-RADS Electronically Signed: Fernando Gomez, at 12:44 EST , Service support ,
== END | disposition home or self-care (01) ==
LOC: CT 08:19
PROVIDERS: PCP Family Medicine; Referring Provider Nurse Practitioner Acute Care; Visit Provider Nurse Practitioner Acute Care
DX: F17.210 Nicotine dependence, cigarettes, uncomplicated (principal); Z12.2 Encounter for screening for malignant neoplasm of respiratory organs
CPT/HCPCS: G0297

== ENCOUNTER → 2020-04-12 10:48 | Outpatient (CLI) | payer MEDICARE, SELFPAY ==
[2019-10-12 08:24] VITALS: BMI 21.2
[2020-04-12 11:19] VITALS: PULSE 100; PULSE 102; PULSE 82; PULSE 88; PULSE 91; PULSE 98; PULSE 99; O2SAT 91; O2SAT 92; O2SAT 93
--- NOTE | 2020-04-13 14:29 | PCM.PSN.6M ---
PSN 6 Minute Walk Test - 6 Minute Walk Test 6 Minute Walk Test: 6 Minute Walk Test PSN:6-Minute Walk Test Start: 04/12/20 11:19 Freq: Status: Active Protocol: RESP.6MINW Document 04/12/20 11:19 ANDREW (Rec: 04/12/20 11:28 ANDREW [id number]) 6 Minute Walk Test Date Performed 04/12/20 Time Performed 11:00 Height 4 ft 9.5 in Weight: 96 lb 10.3 oz Weight in Pounds 96.[address]: Sierra Dee Assistive device used: None Pre-test Oxygen Delivery Method Room Air Pulse Ox (%) 93 Pulse Rate (60-100 beats/min) 82 Dyspnea Sandeep Scale (0-10) 0 Exertion Sandeep Scale (6-20) 6 1st minute Oxygen Delivery Method Room Air Pulse Ox (%) 93 Pulse Rate (60-100 beats/min) 91 2nd minute Oxygen Delivery Method Room Air Pulse Ox (%) 91 Pulse Rate (60-100 beats/min) 98 3rd minute Oxygen Delivery Method Room Air Pulse Ox (%) 91 Pulse Rate (60-100 beats/min) 100 4th minute Oxygen Delivery Method Room Air Pulse Ox (%) 92 Pulse Rate (60-100 beats/min) 99 5th minute Oxygen Delivery Method Room Air Pulse Ox (%) 92 Pulse Rate (60-100 beats/min) 99 6th minute Oxygen Delivery Method Room Air Pulse Ox (%) 91 Pulse Rate (60-100 beats/min) 102 H Dyspnea Sandeep Scale (0-10) 0 Exertion Sandeep Scale (6-20) 11 Post-test Oxygen Delivery Method Room Air Pulse Ox (%) 93 Pulse Rate (60-100 beats/min) 88 Full Laps Walked 22 Partial Lap, Number of Tiles Walked 10 Total Distance Walked (ft) 1308 - Interpretation Interpretation: The patient ambulated 1308 feet over the course of 6 minutes beginning on room air without assistive devices or breaks. Pretesting oxygen saturation was noted to be 93% on room air. With ambulation, the madeline oxygen saturation was 91%. There was no significant exertional oxygen desaturation. - Recommendations Recommendations: There is no indication for the use of supplemental oxygen at this time.
== END ==
PROVIDERS: PCP Family Medicine; Referring Provider Nurse Practitioner Acute Care; Visit Provider Nurse Practitioner Acute Care
DX: J44.9 Chronic obstructive pulmonary disease, unspecified (principal)
CPT/HCPCS: 94060; 94618; 94726; 94729

== ENCOUNTER → 2020-04-15 | Outpatient (CLI) | payer MEDICARE, SELFPAY ==
[2019-10-12 08:24] VITALS: BMI 21.2
--- NOTE | 2020-04-15 13:58 | PFT ---
INTRODUCTION: The patient is a 65-year-old female that presents for pulmonary function studies secondary to a diagnosis of shortness of breath. Respiratory therapy reports good patient effort. Bronchodilators were used during testing. INTERPRETATION: Forced expiration spirometry demonstrates the presence of a mild large airways obstructive ventilatory defect. There was no significant response to aerosolized bronchodilators. Spirograms are of good quality and do not plateau indicating slow emptying of the lungs. Body plethysmography was performed and revealed an elevated TLC and RV, indicative of underlying hyperinflation and air trapping. Diffusing capacity by single breath CO is within normal limits at 97% of predicted. IMPRESSION: Irreversible mild large airways obstructive ventilatory defect with associated hyperinflation and air trapping.
== END | disposition home or self-care (01) ==
LOC: PSN 07:52
PROVIDERS: PCP Family Medicine; Referring Provider Nurse Practitioner Acute Care; Visit Provider Nurse Practitioner Acute Care
DX: J44.9 Chronic obstructive pulmonary disease, unspecified (principal)
CPT/HCPCS: 94060; 94726; 94729

== ENCOUNTER → 2020-06-22 | Outpatient (CLI) | payer MEDICARE, SELFPAY ==
[2020-05-31 06:37] VITALS: BMI 21.6
--- NOTE | 2020-06-22 12:11 | CT_ITS ---
STUDY: CT CHEST WITHOUT CONTRAST REASON FOR EXAM: Female, 65 years old. LUNG NODULES F/U RADIATION DOSAGE (If Supplied By Facility): CTDIvol = ( 6.27 ) mGy, DLP = ( 213.08 ) mGycm TECHNIQUE: Transaxial imaging was performed without the administration of intravenous contrast material. Multiplanar coronal and sagittal images were reformatted. Individualized dose optimization techniques were used for this CT. COMPARISON: Comparison is made with prior study dated 10/22/2019. FINDINGS: Stable small benign-appearing bilateral axillary lymph nodes. Hyperinflation. Emphysematous changes worse in the upper lobes with the centrilobular changes. Linear density in the posterior aspect of the lingular segment of the left upper lobe suggestive of a linear scarring. Stable 8.5 mm nodular density in the anterior medial aspect of the right lung apex. This most likely represents a focal area of scarring. Stable 7 mm ill-defined density in the midportion of the left upper lobe. This most likely represents scarring. There is no demonstrated pleural abnormality. There are calcifications of the coronary arteries. Normal mediastinum. Normal hilar regions. Normal unenhanced pulmonary arteries. Normal aorta arch and descending thoracic aorta. There are multi-level degenerative changes of the thoracic spine. There is no demonstrated abnormality of the visualized upper abdomen. CT/Chest without Contrast IMPRESSION: Stable examination. Electronically Signed: Fernando Gomez, at 12:59 EDT , Service support ,
== END | disposition home or self-care (01) ==
LOC: CT 12:11
PROVIDERS: PCP Family Medicine; Referring Provider Internal Medicine Critical Care Medicine; Visit Provider Internal Medicine Critical Care Medicine
DX: U07.1 COVID-19 (principal); R91.1 Solitary pulmonary nodule; B34.9 Viral infection, unspecified
CPT/HCPCS: 71250; 87635; C9803; U0003

== ENCOUNTER 2021-02-23 10:19 | Emergency (ER) | payer MEDICARE, SELFPAY ==
[2021-01-23 08:45] VITALS: BMI 23.1
[2021-02-23 10:20] VITALS: BP 142/95; PULSE 92; RESP 19; TEMP 36.1; O2SAT 97
--- NOTE | 2021-02-23 10:33 | EKG12_ITS ---
Test Reason : CP Blood Pressure : / mmHG Vent. Rate : 081 BPM Atrial Rate : 081 BPM P-R Int : 132 ms QRS Dur : 066 ms QT Int : 358 ms P-R-T Axes : 067 023 036 degrees QTc Int : 415 ms Normal sinus rhythm Normal ECG Confirmed by EDWIN YATES MD ([id number]), editor publications BHAVNA LOVE ([id number]) on 02/24/2021 12:59:03 PM Referred By: MARILUZ Confirmed By:EDWIN YATES MD
--- NOTE | 2021-02-23 10:34 | EDS_ITS ---
HPI History of Present Illness Chief Complaint: Chest Pain Informant: patient Narrative Narrative: Patient is a 65-year-old female with a past medical history of COPD, hypertension who presents to the emergency department for chest tightness. She states that this has been an ongoing issue since she was diagnosed with Covid back last June. She states she was placed lorazepam and this resolved her symptoms well. She had to switch PCPs and they discontinued her lorazepam and started her on buspirone this past week. Since then she has been having the chest tightness back. She has had a mild cough that is nonproductive. She denies significant shortness of breath. She has not had any leg swelling or calf pain. No history of DVT/PE. No history of heart attack. She does not know aggravating or relieving factors. Patient does not feel like this is anxiety related but she did not feel like it was whenever she was on the lorazepam either. She denies any fevers or chills. No nausea/vomiting. No abdominal pain. She is a former smoker. [facility] Medical History (Updated 02/23/21 @ 11:[address] Boby Loya, ) Alcohol abuse Anxiety associated with depression Arnold-Chiari deformity Benign essential HTN Cervicalgia Chronic interstitial cystitis Chronic pain disorder Climacteric COPD, moderate RODRIGUEZ (dyspnea on exertion) Emphysema of lung Esophageal obstruction due to food impaction Generalized hyperhidrosis HSV (herpes simplex virus) anogenital infection Lumbar spinal stenosis Lung mass Osteoporosis Overactive bladder Peripheral neuropathy Postmenopausal atrophic vaginitis Recurrent manic disorder Sleep-related breathing disorder Stage 2 moderate COPD by GOLD classification Home Medications calcium carbonate 1,200 mg PO DAILY 05/09/16 [History Last Taken Unknown] valacyclovir 1,000 mg PO DAILY 05/09/16 [History Last Taken Unknown] melatonin 10 mg PO QHS 05/20/18 [History Last Taken Unknown] trazodone 100 mg PO QHS 05/20/18 [History Last Taken Unknown] ascorbic acid (vitamin C) 1,000 mg PO DAILY 06/26/18 [History Last Taken Unknown] amlodipine 2.5 mg tablet 2.5 mg PO DAILY 12/02/18 [History Last Taken Unknown] nystatin 100,000 unit/mL oral suspension 15 ml MUCOUS MEMBRANE TID #250 ml 12/22/18 [Rx Last Taken Unknown] fluticasone propionate 50 mcg/actuation nasal spray,suspension 2 spray INTRA NASAL DAILY #16 g 10/12/19 [Rx Last Taken Unknown] Spiriva Respimat 2.5 mcg/actuation solution for inhalation 2 puff INHALATION QDAY #3 ea NS 01/06/20 [Rx Last Taken Unknown] albuterol sulfate 90 mcg/actuation aerosol inhaler 2 puff INHALATION Q6H PRN #18 g 01/06/20 [Rx Last Taken Unknown] budesonide-formoterol HFA 160 mcg-4.5 mcg/actuation aerosol inhaler 2 puff INHALATION BID #3 ea 08/24/20 [Rx Last Taken Unknown] montelukast 10 mg tablet 10 mg PO QPM #90 tab 09/22/20 [Rx Last Taken Unknown] alendronate 70 mg PO QWEEK 02/23/21 [History Last Taken Unknown] biotin 5,000 mcg SUBLINGUAL DAILY 02/23/21 [History Last Taken Unknown] buspirone 15 mg PO BID 02/23/21 [History Last Taken Unknown] cholecalciferol (vitamin D3) [Vitamin D3] 125 mcg PO DAILY 02/23/21 [History Last Taken Unknown] omeprazole 40 mg PO DAILY 02/23/21 [History Last Taken Unknown] Allergy/AdvReac Type Severity Reaction Status Date / Time lisinopril Allergy Unknown Unknown Verified 02/23/21 10:20 Fish Containing Products Allergy Angioedema Verified 02/23/21 10:20 horse serum Allergy Unknown Unknown Uncoded 02/23/21 10:20 SEAFOOD Allergy Angioedema Uncoded 02/23/21 10:20 Family History (Reviewed 01/23/21 @ 11:48 by Sierra Dee TELEHEALTH NURSE EDUCATOR, TELEHEALTH NURSE EDUCATOR-C) Father Hypertension Aortic aneurysm Cancer skin and bladder Social History Smoking Status: Former smoker quit date: 09/02/10 pack-years: 57 second hand exposure: No alcohol intake: current alcohol intake frequency: 3 or more drinks per day Alcohol type: beer substance use type: does not use caffeine: Yes what type of physical activity do you participate in: none ROS ROS ED Constitutional Constitutional ED: Denies chills or fever(s) Eyes Eyes: Denies change in vision ENT ENT ED: Denies epistaxis or rhinorrhea Cardiovascular Cardiovascular: Reports chest pain; Denies palpitations Respiratory/Chest Respiratory/Chest: Reports chest tightness and cough; Denies dyspnea or dyspnea on exertion Gastrointestinal Gastrointestinal: Denies abdominal pain, diarrhea, nausea or vomiting Genitourinary Genitourinary ED: Denies dysuria, hematuria or urinary frequency Musculoskeletal Musculoskeletal: Denies back pain or neck pain Integumentary Denies rash Neurologic Neurologic: Denies dizziness, headache(s) or weakness EXAM Physical Exam Const Vital Signs: 02/23/21 10:20 02/23/21 10:31 Temperature 97 F L Temperature Source Temporal Pulse Rate 92 Respiratory Rate 19 H Respiratory Effort Normal Non-Labored Blood Pressure 142/95 H Blood Pressure Mean 110 Pulse Ox 97 Oxygen Delivery Method Room Air Positive well nourished and well developed General Appearance ED: well developed and NAD HEENT Reports normocephalic, head/scalp atraumatic and moist mucous membranes Eyes PERRL and EOMs intact bilaterally Neck supple Chest Wall inspection of chest normal Resp normal respiratory effort and clear to auscultation bilaterally Auscultation: Negative for rales, rhonchi or wheezes Cardio regular rate, regular rhythm and no murmurs GI normal to inspection, nondistended, normoactive bowel sounds and non-tender Palpation: soft; Negative for guarding or rebound tenderness present Extremity normal to inspection General Extremety ED: Negative for edema or tenderness General Extremity: Negative for edema Neuro oriented x3, CN's II-XII intact bilaterally and no sensory deficits noted Sensorium / Orientation: alert Motor Exam: strength 5/5 throughout Psych mental status grossly normal Skin no rashes or lesions noted MDM MDM MDM Narrative Medical decision making narrative: Patient presents to the emergency department for chest tightness. Upon arrival to the emergency department her vital signs are within normal limits. She is in no acute distress. Patient states that she has had this tightness since coming off her lorazepam. EKG was obtained which did not show any signs of ischemia or arrhythmia. She has a benign physical exam. Of low concern for CAD, thromboembolism, aortic catastrophe or esophageal rupture. Will check basic lab work and chest x-ray. Given the fact her PCP has been trying to switch her off lorazepam to buspirone we will give her a dose of Vistaril to see if this gives her some relief. Lab Data Labs: Laboratory Results - last 24 hr 02/23/21 02/23/21 10:37 10:37 WBC 8.3 RBC 4.63 Hgb 15.7 H Hct 47.3 H MCV 102.2 H MCH 33.9 H MCHC 33.2 RDW Std Deviation 45.4 H RDW Coeff of Jordon 12.0 Plt Count 292 MPV 9.0 Immature Gran % (Auto) 0.400 Neut % (Auto) 70.4 H Lymph % (Auto) 18.5 L [place] % (Auto) 7.8 Eos % (Auto) 2.2 Baso % (Auto) 0.7 Absolute Neuts (auto) 5.8 Absolute Lymphs (auto) 1.53 Nucleated RBC % 0 Sodium 139 Potassium 3.6 Chloride 104 Carbon Dioxide 28.0 Anion Gap 7 BUN 10 Creatinine 0.81 Estim Creat Clear Calc 49.96 Est GFR (MDRD) Af Amer 91 Est GFR (MDRD) Non-Af 76 BUN/Creatinine Ratio 12.4 Glucose 109 H Calcium 9.4 Troponin I High Sens 5.9 Radiography Chest X-Ray - ED: 1 View (X-ray interpreted by myself. Clear lung keyes bilaterally. Normal cardiac silhouette. Normal mediastinum. Scoliosis present. Agree with radiologist interpretation.) Diagnostic Testing: Radiology Impression Chest X-Ray 02/23/21 10:45 IMPRESSION: Negative chest for intrathoracic active disease. Electronically Signed: Robi Jose, at 11:00 EDT Tel , Service support , EKG Initial EKG: Attestation: I personally reviewed and interpreted this EKG as follows: (Rate of 81 bpm and normal sinus rhythm. Normal intervals. Normal axis. No significant ST elevations or depressions. No T wave abnormalities.) Discharge Plan Triage Chief Complaint: Chest Pain ED Provider: Boby Loya Dx/Rx/DC Orders Clinical Impression: Chest tightness Instructions: ED Chest Pain, Noncardiac Prescriptions: No Action nystatin 100,000 unit/mL suspension 15 ml mucous membrane TID Qty: 250 RF: 1 amlodipine [Norvasc] 2.5 mg tablet 2.5 mg PO DAILY RF: 0 fluticasone propionate 50 mcg/actuation spray,suspension 2 spray INTRANASAL DAILY Qty: 16 RF: 6 valacyclovir 1,000 MG tablet 1,000 mg PO DAILY RF: 0 calcium carbonate 600 MG tablet 1,200 mg PO DAILY RF: 0 trazodone 100 MG tablet 100 mg PO QHS RF: 0 melatonin 10 MG tablet 10 mg PO QHS RF: 0 ascorbic acid (vitamin C) 500 MG tablet extended release 1,000 mg PO DAILY RF: 0 omeprazole 40 mg Capsule,Delayed Release(Dr/Ec) 40 mg PO DAILY RF: 0 buspirone 15 mg tablet 15 mg PO BID RF: 0 alendronate 70 mg/75 mL Solution 70 mg PO QWEEK RF: 0 cholecalciferol (vitamin D3) [Vitamin D3] 125 mcg (5,000 unit) Tablet 125 mcg PO DAILY RF: 0 biotin 5,000 mcg Tablet, Sublingual 5,000 mcg SUBLINGUAL DAILY RF: 0 Spiriva Respimat 2.5 mcg/actuation mist 2 puff INHALATION QDAY Qty: 3 RF: 3 albuterol sulfate [ProAir HFA] 90 mcg/actuation HFA aerosol inhaler 2 puff INHALATION Q6H PRN (Reason: shortness of breath or wheezing) Qty: 18 RF: 6 Symbicort 160-4.5 mcg/actuation HFA aerosol inhaler 2 puff INHALATION BID Qty: 3 RF: 3 montelukast 10 mg tablet 10 mg PO QPM Qty: 90 RF: 3 Primary Care Provider: Rito Chew Referrals: Rito Chew MD [Primary Care Provider] - 3-5 Days Disposition Disposition: Home, Self Care Discharge Date/Time: 02/23/21 12:17
[2021-02-23] MEDS: hydrOXYzine PAM 25 MG Capsule PO (10:43)
[2021-02-23 10:45] LABS: Absolute Lymphocyte Count 1.53 X10^3/uL (0.83-4.51); Absolute Neutrophil Count 5.8 X10^3/uL (2.0-7.7); Basophil# 0.06 X10^3/uL; Basophil% 0.7 % (0-1); Eosinophil# 0.18 X10^3/uL; Eosinophils% 2.2 % (0-5); Hematocrit 47.3 % (37-47); Hemoglobin 15.7 g/dL (12.0-15.0); Lymphocyte # 1.53 X10^3/ul (0.83-4.51); Lymphocyte % 18.5 % (19-41); Mean Corp Hgb Conc 33.2 g/dL (32-36); Mean Corpuscular Hgb 33.9 pg (27.0-32.0); Mean Corpuscular Volume 102.2 fL (81-99); Monocyte# 0.65 X10^3/uL; Monocyte% 7.8 % (0-10); NRBC Flagged by Analyzer 0 % (0-5); Neutrophil # 5.84 X10^3/uL (2.7-7.7); Neutrophil % 70.4 % (47-70); Platelet Count 292 K/mm3 (150-450); RBC Distribution Width SD 45.4 fl (35.1-43.9); Red Blood Count 4.63 M/mm3 (4.2-5.4); White Blood Count 8.3 K/mm3 (4.4-11.0)
--- NOTE | 2021-02-23 10:45 | RAD_ITS ---
STUDY: X-RAY CHEST REASON FOR EXAM: Female, 65 years old. chest pain TECHNIQUE: 1 view COMPARISON: X-ray of 2018 FINDINGS: The lungs are clear and expanded. There is no demonstrated pleural abnormality. Normal size heart. Normal mediastinum and francois. Normal visualized pulmonary arteries. Normal visualized aortic arch and descending thoracic aorta. There is mild scoliosis of the lower dorsal spine convexity to the right side. There is no demonstrated abnormality of the visualized soft tissue structures of the upper abdomen. RAD/Chest 1 View (Portable) IMPRESSION: Negative chest for intrathoracic active disease. Electronically Signed: Robi Jose, at 11:00 EDT Tel , Service support ,
[2021-02-23 11:01] LABS: Anion Gap 7 (5-15); BUN 10 mg/dL (7-18); BUN/Creat Ratio 12.4 RATIO (10-20); Calcium,Total 9.4 mg/dL (8.5-10.1); Chloride 104 mmol/L (98-107); Creatinine, Serum 0.81 mg/dL (0.55-1.02); EST Glomerular Filtration Rate 76 mL/min (>60); Est Glom Filt Rate - Afr Amer 91 mL/min (>60); Estimated Creatinine Clearance 49.96 ml/min; Glucose 109 mg/dL (74-106); Potassium 3.6 mmol/L (3.5-5.1); Sodium Level 139 mmol/L (136-145); Troponin-I HS 5.9 pg/mL (3.0-53.7)
== END 2021-02-23 12:17 | disposition home or self-care (01) ==
PROVIDERS: Emergency Provider Emergency Medicine; PCP Family Medicine
DX: R07.89 Other chest pain (principal); F41.9 Anxiety disorder, unspecified; I10 Essential (primary) hypertension; J44.9 Chronic obstructive pulmonary disease, unspecified; Z87.891 Personal history of nicotine dependence; Z79.899 Other long term (current) drug therapy
CPT/HCPCS: 71045; 80048; 84484; 85025; 93005; 99285; A4216

== ENCOUNTER 2021-02-28 16:26 | Emergency (ER) | payer MEDICARE, SELFPAY ==
[2021-02-28 16:32] VITALS: BP 129/85; PULSE 75; RESP 14; TEMP 36.4; O2SAT 98; BMI 37.6
--- NOTE | 2021-02-28 17:55 | EKG12_ITS ---
Test Reason : SOB Blood Pressure : / mmHG Vent. Rate : 075 BPM Atrial Rate : 075 BPM P-R Int : 120 ms QRS Dur : 084 ms QT Int : 384 ms P-R-T Axes : 079 019 053 degrees QTc Int : 428 ms Normal sinus rhythm Low voltage QRS (Limb Leads) Poor R wave progression Confirmed by JOE FONTANEZ, SUNNY ([id number]), newspaper managing editor BHAVNA LOVE ([id number]) on 03/02/2021 10:50:30 AM Referred By: JOSSE Confirmed By:SUNNY DIAZ MD
[2021-02-28 18:17] VITALS: O2SAT 95
[2021-02-28] MEDS: Aspirin 81 MG TAB.CHEW 324 MG PO (18:30)
[2021-02-28] MEDS: LORazepam 0.5 MG Tablet PO (18:30)
--- NOTE | 2021-02-28 18:30 | RAD_ITS ---
EXAM: XR CHEST, 1 VIEW : 1955 CLINICAL INDICATION: chest pain TECHNIQUE: Frontal view of the chest. This report was created using [employer] report generation technology. COMPARISON: 02/23/2021 FINDINGS: LUNGS AND PLEURAL SPACES: Unremarkable. No consolidation or edema. No pneumothorax. No effusion. HEART: Unremarkable. Cardiac silhouette not enlarged. MEDIASTINUM: Central airways and mediastinal contour are unremarkable. BONES/JOINTS: Unremarkable. SOFT TISSUES: Unremarkable. RAD/Chest 1 View (Portable) IMPRESSION: No radiographic evidence of acute cardiopulmonary disease. at 1908 Reported and signed by: Sudhakar Espana MD Electronically Signed: Sudhakar Espana MD at 19:06 EDT Tel , Service support ,
[2021-02-28 18:32] LABS: Absolute Lymphocyte Count 1.92 X10^3/uL (0.83-4.51); Absolute Neutrophil Count 5.8 X10^3/uL (2.0-7.7); Basophil# 0.08 X10^3/uL; Basophil% 0.9 % (0-1); Eosinophil# 0.26 X10^3/uL; Hemoglobin 14.1 g/dL (12.0-15.0); Lymphocyte # 1.92 X10^3/ul (0.83-4.51); Mean Corp Hgb Conc 34.4 g/dL (32-36); Mean Corpuscular Hgb 34.5 pg (27.0-32.0); Mean Corpuscular Volume 100.2 fL (81-99); Mean Platelet Vol. 9.2 fl (6.2-12.0); Monocyte# 0.66 X10^3/uL; Monocyte% 7.6 % (0-10); NRBC Flagged by Analyzer 0 % (0-5); Neutrophil % 66.3 % (47-70); Platelet Count 273 K/mm3 (150-450); RBC Distribution Width CV 11.7 % (11.6-14.6); RBC Distribution Width SD 43.2 fl (35.1-43.9); Red Blood Count 4.09 M/mm3 (4.2-5.4); White Blood Count 8.7 K/mm3 (4.4-11.0)
[2021-02-28 18:33] VITALS: BP 109/71; PULSE 80; RESP 14; O2SAT 92
[2021-02-28 18:41] LABS: D-Dimer Quantitative (DVT/PE) 0.37 FEU/ug/m (0.27-0.49)
[2021-02-28 18:51] LABS: BNP,B-Type NATRIURETIC PEPTIDE 19.2 pg/mL (0-100)
[2021-02-28 19:15] LABS: Anion Gap 9 (5-15); BUN 11 mg/dL (7-18); BUN/Creat Ratio 14.3 RATIO (10-20); Calcium,Total 8.6 mg/dL (8.5-10.1); Chloride 101 mmol/L (98-107); Creatinine, Serum 0.77 mg/dL (0.55-1.02); EST Glomerular Filtration Rate 80 mL/min (>60); Est Glom Filt Rate - Afr Amer 97 mL/min (>60); Estimated Creatinine Clearance 95.14 ml/min; Glucose 73 mg/dL (74-106); Potassium 3.7 mmol/L (3.5-5.1); Sodium Level 136 mmol/L (136-145); Thyroid Stim Hormone (TSH) 1.19 uIU/mL (0.358-3.74); Troponin-I HS 6.3 pg/mL (3.0-53.7)
[2021-02-28 20:44] VITALS: BP 124/80; PULSE 79; RESP 16; O2SAT 94; O2SAT 97
--- NOTE | 2021-02-28 21:06 | EDS_ITS ---
HPI History of Present Illness Chief Complaint: Shortness of Breath Informant: patient Narrative Narrative: Patient is a 65-year-old female present with shortness of breath and anxiety. She knows she has a history of asthma and COPD. She had Covid in June 2020. She follows with Dr. Gustafson pulmonology and Dr. Chew, PCP. She notes she recently switch from Dr. Gold after he retired and now sees Dr. Chew. She previously was on Ativan for anxiety but Dr. Chew switched her to BuSpar. She is been on for 2 weeks, 10 mg twice a day. She notes that for the past month she had increased shortness of breath. She notes that when she was coming up the stairs after try to give her dog a bath she felt very short of breath. She has had heaviness and tightness in her chest for the past month and feels that her chest is going to explode. She denies a history of DVT or PE. She denies any swelling of her legs. She has any fever or chills. No other complaints at this time. [facility] Medical History (Updated 02/28/21 @ 21:[address] Quynh Alatorre, DO) Alcohol abuse Anxiety associated with depression Arnold-Chiari deformity Benign essential HTN Cervicalgia Chronic interstitial cystitis Chronic pain disorder Climacteric COPD, moderate RODRIGUEZ (dyspnea on exertion) Emphysema of lung Esophageal obstruction due to food impaction Generalized hyperhidrosis HSV (herpes simplex virus) anogenital infection Lumbar spinal stenosis Lung mass Osteoporosis Overactive bladder Peripheral neuropathy Postmenopausal atrophic vaginitis Recurrent manic disorder Sleep-related breathing disorder Stage 2 moderate COPD by GOLD classification Home Medications calcium carbonate 1,200 mg PO DAILY 05/09/16 [History Last Taken Unknown] valacyclovir 1,000 mg PO DAILY 05/09/16 [History Last Taken Unknown] melatonin 10 mg PO QHS 05/20/18 [History Last Taken Unknown] trazodone 100 mg PO QHS 05/20/18 [History Last Taken Unknown] ascorbic acid (vitamin C) 1,000 mg PO DAILY 06/26/18 [History Last Taken Unknown] amlodipine 2.5 mg tablet 2.5 mg PO DAILY 12/02/18 [History Last Taken Unknown] nystatin 100,000 unit/mL oral suspension 15 ml MUCOUS MEMBRANE TID #250 ml 12/22/18 [Rx Last Taken Unknown] fluticasone propionate 50 mcg/actuation nasal spray,suspension 2 spray INTRANASAL DAILY #16 g 10/12/19 [Rx Last Taken Unknown] Spiriva Respimat 2.5 mcg/actuation solution for inhalation 2 puff INHALATION QDAY #3 ea NS 01/06/20 [Rx Last Taken Unknown] albuterol sulfate 90 mcg/actuation aerosol inhaler 2 puff INHALATION Q6H PRN #18 g 01/06/20 [Rx Last Taken Unknown] budesonide-formoterol HFA 160 mcg-4.5 mcg/actuation aerosol inhaler 2 puff INHALATION BID #3 ea 08/24/20 [Rx Last Taken Unknown] montelukast 10 mg tablet 10 mg PO QPM #90 tab 09/22/20 [Rx Last Taken Unknown] alendronate 70 mg PO QWEEK 02/23/21 [History Last Taken Unknown] biotin 5,000 mcg SUBLINGUAL DAILY 02/23/21 [History Last Taken Unknown] buspirone 15 mg PO BID 02/23/21 [History Last Taken Unknown] cholecalciferol (vitamin D3) [Vitamin D3] 125 mcg PO DAILY 02/23/21 [History Last Taken Unknown] omeprazole 40 mg PO DAILY 02/23/21 [History Last Taken Unknown] Allergy/AdvReac Type Severity Reaction Status Date / Time lisinopril Allergy Unknown Unknown Verified 02/28/21 16:35 Fish Containing Products Allergy Angioedema Verified 02/28/21 16:35 horse serum Allergy Unknown Unknown Uncoded 02/28/21 16:35 SEAFOOD Allergy Angioedema Uncoded 02/28/21 16:35 Family History Father Hypertension Aortic aneurysm Cancer skin and bladder Social History Smoking Status: Former smoker quit date: 09/02/10 pack-years: 57 second hand exposure: No alcohol intake: current alcohol intake frequency: 3 or more drinks per day Alcohol type: beer substance use type: does not use caffeine: Yes what type of physical activity do you participate in: none ROS ROS ED Constitutional Constitutional ED: Denies chills, fatigue, fever(s) or weakness Eyes Eyes: Denies blurry vision Cardiovascular Cardiovascular: Reports chest pain; Denies orthopnea, palpitations or racing heartbeat Respiratory/Chest Respiratory/Chest: Reports dyspnea, dyspnea on exertion and other Details: no wheezing ; Denies cough or orthopnea Gastrointestinal Gastrointestinal: Denies abdominal pain, nausea or vomiting Genitourinary Genitourinary ED: Denies decreased urination or dysuria Musculoskeletal Musculoskeletal: Denies extremity pain Integumentary Denies new lesions or rash Neurologic Neurologic: Denies paresthesias or weakness Psychiatric Psychiatric: Reports anxiety; Denies depression Hematologic/Lymphatic Hematologic/Lymphatic: Denies easy bleeding or easy bruising EXAM Physical Exam Const Vital Signs: 02/28/21 16:32 02/28/21 18:17 02/28/21 18:33 Temperature 97.6 F L Temperature Source Oral Pulse Rate 75 80 Respiratory Rate 14 14 Blood Pressure 129/85 H 109/71 Blood Pressure Mean 99 83 Pulse Ox 98 95 92 Oxygen Delivery Method Room Air Room Air Room Air 02/28/21 20:44 02/28/21 21:35 Temperature Temperature Source Pulse Rate 79 74 Respiratory Rate 16 18 Blood Pressure 124/80 H Blood Pressure Mean 94 Pulse Ox 97 94 Oxygen Delivery Method Room Air Positive well nourished and well developed General Appearance ED: well developed and NAD HEENT Reports moist mucous membranes normocephalic and atraumatic Mouth ED: Yes moist mucous membranes normal Eyes PERRL and EOMs intact bilaterally General Eye ED: Yes normal appearance of both eyes Pupil: PERRL Neck supple and no JVD Lymph Lymphatic: no lymphadenopathy noted Chest Wall inspection of chest normal and palpation of chest normal Resp normal respiratory effort, normal air movement and clear to auscultation bilaterally Auscultation: diminished lung sounds bilateral lower; Negative for rhonchi or wheezes Cardio regular rate and regular rhythm Peripheral Pulses: pulses 2+ throughout GI non-tender and non-distended Palpation: soft Back/Spine no CVA tenderness and normal to inspection Extremity normal to inspection and full ROM Neuro oriented x3, moves all extremities and no focal motor deficits Sensorium / Orientation: alert Psych mental status grossly normal and thought process normal Mood & Affect: anxious Thought Process: normal thought process Skin no rashes or lesions noted and no petechiae Lesions: no lesions Rashes: no rashes MDM MDM MDM Narrative Medical decision making narrative: Patient is evaluated for worsening shortness of breath and feeling like she cannot breathe. She states is been going on for the past few weeks and she was seen by her PCP 2 weeks ago who switched her to BuSpar. She states she was on Ativan before with another doctor and felt like it helped much better. She does report that she has had some increased dyspnea on exertion and exercise intolerance. She did not have any other risk factors for PE besides age. Her D-dimer is 0.37 and she is low risk by Wells criteria. I do not think she has a PE. I do not think a CTA is indicated at this time. I states she troponin is normal. EKG does not show any acute ischemic changes. Her CBC is normal. Chest x-ray does not show any findings with acute infection or other acute cause of her symptoms. Patient is ambulated the emergency room and does not have any desaturation. She is given oral Ativan while in the emergency room. She does not appear to be fluid overload I do not think this is CHF. Patient is counseled that she is to follow-up with her director education and her primary care doctor for further testing to figure out why she has been having this continued chest pressure and respiratory symptoms. At this time I do not think she requires admission to the hospital. Patient verbalizes agreement understand this plan. She states that she does have an appointment to see the nurse practitioner at her PCP office in 2 days. Lab Data Attestation: I reviewed the patient's lab results. Labs: Laboratory Results - last 24 hr 02/28/21 02/28/21 02/28/21 18:20 18:20 18:20 WBC 8.7 RBC 4.09 L Hgb 14.1 Hct 41.0 MCV 100.2 H MCH 34.5 H MCHC 34.4 RDW Std Deviation 43.2 RDW Coeff of Jordon 11.7 Plt Count 273 MPV 9.2 Immature Gran % (Auto) 0.200 Neut % (Auto) 66.3 Lymph % (Auto) 22.0 [place] % (Auto) 7.6 Eos % (Auto) 3.0 Baso % (Auto) 0.9 Absolute Neuts (auto) 5.8 Absolute Lymphs (auto) 1.92 Nucleated RBC % 0 D-Dimer Quant (PE/DVT) 0.37 Sodium 136 Potassium 3.7 Chloride 101 Carbon Dioxide 26.0 Anion Gap 9 BUN 11 Creatinine 0.77 Estim Creat Clear Calc 95.14 Est GFR (MDRD) Af Amer 97 Est GFR (MDRD) Non-Af 80 BUN/Creatinine Ratio 14.3 Glucose 73 L Calcium 8.6 Troponin I High Sens 6.3 B-Natriuretic Peptide TSH 1.19 02/28/21 18:20 WBC RBC Hgb Hct MCV MCH MCHC RDW Std Deviation RDW Coeff of Jordon Plt Count MPV Immature Gran % (Auto) Neut % (Auto) Lymph % (Auto) [place] % (Auto) Eos % (Auto) Baso % (Auto) Absolute Neuts (auto) Absolute Lymphs (auto) Nucleated RBC % D-Dimer Quant (PE/DVT) Sodium Potassium Chloride Carbon Dioxide Anion Gap BUN Creatinine Estim Creat Clear Calc Est GFR (MDRD) Af Amer Est GFR (MDRD) Non-Af BUN/Creatinine Ratio Glucose Calcium Troponin I High Sens B-Natriuretic Peptide 19.2 TSH Radiography Chest X-Ray - ED: 1 View, Read by ED Physician, Read by Radiologist and No Acute Disease Diagnostic Testing: Radiology Impression Chest X-Ray 02/28/21 18:30 IMPRESSION: No radiographic evidence of acute cardiopulmonary disease. at 1908 Reported and signed by: Sudhakar Espana MD Electronically Signed: Sudhakar Espana MD at 19:06 EDT Tel , Service support , Rhythm Strip Rhythm Strip: Sinus Rhythm Rate: 75 Ectopy: None EKG Initial EKG: Attestation: I personally reviewed and interpreted this EKG as follows: Interpretation: Sinus Rhythm Comments: Normal sinus rhythm rate of 75 Normal axis Normal intervals Normal ST segments No change prior to prior EKG on 02/23/2021 Discharge Plan Triage Chief Complaint: Shortness of Breath ED Provider: Quynh Alatorre Dx/Rx/DC Orders Clinical Impression: Chest tightness, Shortness of breath Instructions: ED Chest Pain, Uncertain Cause Prescriptions: No Action nystatin 100,000 unit/mL suspension 15 ml mucous membrane TID Qty: 250 RF: 1 amlodipine [Norvasc] 2.5 mg tablet 2.5 mg PO DAILY RF: 0 fluticasone propionate 50 mcg/actuation spray,suspension 2 spray INTRANASAL DAILY Qty: 16 RF: 6 valacyclovir 1,000 MG tablet 1,000 mg PO DAILY RF: 0 calcium carbonate 600 MG tablet 1,200 mg PO DAILY RF: 0 trazodone 100 MG tablet 100 mg PO QHS RF: 0 melatonin 10 MG tablet 10 mg PO QHS RF: 0 ascorbic acid (vitamin C) 500 MG tablet extended release 1,000 mg PO DAILY RF: 0 omeprazole 40 mg Capsule,Delayed Release(Dr/Ec) 40 mg PO DAILY RF: 0 buspirone 15 mg tablet 15 mg PO BID RF: 0 alendronate 70 mg/75 mL Solution 70 mg PO QWEEK RF: 0 cholecalciferol (vitamin D3) [Vitamin D3] 125 mcg (5,000 unit) Tablet 125 mcg PO DAILY RF: 0 biotin 5,000 mcg Tablet, Sublingual 5,000 mcg SUBLINGUAL DAILY RF: 0 Spiriva Respimat 2.5 mcg/actuation mist 2 puff INHALATION QDAY Qty: 3 RF: 3 albuterol sulfate [ProAir HFA] 90 mcg/actuation HFA aerosol inhaler 2 puff INHALATION Q6H PRN (Reason: shortness of breath or wheezing) Qty: 18 RF: 6 Symbicort 160-4.5 mcg/actuation HFA aerosol inhaler 2 puff INHALATION BID Qty: 3 RF: 3 montelukast 10 mg tablet 10 mg PO QPM Qty: 90 RF: 3 Primary Care Provider: Rito Chew Referrals: Suleman Gustafson DO [STAFF PHYSICIAN] - Rito Chew MD [Primary Care Provider] - Disposition Disposition: Home, Self Care Discharge Date/Time: 02/28/21 21:36
[2021-02-28 21:35] VITALS: PULSE 74; RESP 18; O2SAT 94
== END 2021-02-28 21:36 | disposition home or self-care (01) ==
PROVIDERS: Emergency Provider Emergency Medicine; PCP Family Medicine
DX: R07.89 Other chest pain (principal); R06.02 Shortness of breath; J44.9 Chronic obstructive pulmonary disease, unspecified; F41.9 Anxiety disorder, unspecified; I10 Essential (primary) hypertension; Z79.899 Other long term (current) drug therapy; Z79.51 Long term (current) use of inhaled steroids; Z87.891 Personal history of nicotine dependence
CPT/HCPCS: 71045; 80048; 83880; 84443; 84484; 85025; 85379; 93005; 99285; J7030; A4216

== ENCOUNTER → 2021-05-23 06:52 | Outpatient (CLI) | payer MEDICARE, SELFPAY ==
--- NOTE | 2021-05-23 07:00 | ECHOD_ITS ---
Reason For Study: Chest Pain Procedure This was a 2D Doppler, Color Flow transthoracic echocardiogram. Exam performed in department. Left Ventricle Normal LV size. Left ventricular systolic function is normal. The estimated ejection fraction is 65 %. No evidence for diastolic dysfunction. No regional wall motion abnormalities noted. Right Ventricle Normal RV size. Normal systolic function. Atria Normal left atrium. Normal right atrium. No doppler evidence for ASD. Mitral Valve There is no mitral annular calcification. Normal mitral valve. Trivial mitral valve insufficiency. Tricuspid Valve Normal tricuspid valve. Mild tricuspid valve insufficiency. Right ventricular systolic pressure estimated to be 20 mmHg. Aortic Valve Trisinus/trileaflet aortic valve. Normal aortic valve. Trivial aortic valve insufficiency. Pulmonic Valve The pulmonic valve is not well visualized. Great Vessels Normal sized aortic root. Pericardium/Pleural No pericardial effusion. MMode/2D Measurements & Calculations LVIDd: 4.2 cm IVSd: 0.79 cm Ao root diam: 3.3 cm LVIDs: 2.6 cm LVPWd: 0.87 cm LA dimension: 3.1 cm RVDd: 3.0 cm FS: 38.5 % LAV(MOD-bp): 34.2 ml LA A4 area: 13.6 cm2 RA A4 area: 10.9 cm2 LAV(MOD-bp) Indexed: 25.8 ml/m2 LAV(MOD-sp2): 37.9 ml LAV(MOD-sp4): 29.6 ml Time Measurements MV dec time: 0.24 sec Doppler Measurements & Calculations MV E max david: 78.7 cm/sec Lat Peak E' David: 9.6 cm/sec Med Peak E' David: 8.4 cm/sec MV A max david: 95.4 cm/sec E/E' lat: 8.2 E/E' med: 9.4 MV E/A: 0.82 MV V2 max: 102.7 cm/sec MV P1/2t max david: 85.3 cm/sec Ao V2 max: 121.7 cm/sec MV max P.2 mmHg MV P1/2t: 126.3 msec Ao max P.9 mmHg MV V2 mean: 64.6 cm/sec MV dec slope: 197.8 cm/sec2 MV mean P.8 mmHg MVA(P1/2t): 1.7 cm2 MV V2 VTI: 31.4 cm LV V1 max: 94.4 cm/sec PA V2 max: 105.9 cm/sec TR max david: 206.1 cm/sec LV V1 max P.6 mmHg TR max P.0 mmHg ECHO/Echo Complete Interpretation Summary Left ventricular systolic function is normal. The estimated ejection fraction is 65 %. Trivial mitral valve insufficiency. Mild tricuspid valve insufficiency. Trivial aortic valve insufficiency. Right ventricular systolic pressure estimated to be 20 mmHg. No evidence for diastolic dysfunction. Ordering Physician: Grover Buck Referring Physician: Rito Chew Performed By: Robby Pradhan RCS
--- NOTE | 2021-05-24 08:53 | STRESSREP ---
Stress Test Report Date: 05-24-2021 Procedure: Exercise tolerance test/imaging study Indications: Dyspnea on exertion Consent: Per the patient Procedure: The patient exercised on a Jim protocol for 7 minutes completing Stage II and 1 minute of Stage III achieving a peak heart rate of 127 bpm (81% predicted maximal heart rate) with a peak blood pressure 150/80 mmHg and a peak MET capacity of 9 METs. The baseline ECG demonstrated sinus rhythm. The peak exercise ECG demonstrated somatic/motion artifact with no obvious ECG changes. There were no cardiac dysrhythmias pretest, during exercise, or recovery. The functional capacity was considered average. There was no complaint of chest discomfort during exercise or recovery. The examination was discontinued secondary to dyspnea. Impression: 1. Technically adequate (percent predicted maximal heart rate greater than 85%) exercise tolerance test 2. Peak exercise ECG with somatic/motion artifact with no obvious ECG changes 3. There were no cardiac dysrhythmias pretest, during exercise, or recovery 4. Nuclear images pending Myocardial perfusion imaging study: Technique: The patient was injected with 10.3 mCi of technetium 99m Cardiolite and subsequently rest SPECT Cardiolite nuclear imaging was obtained in the horizontal long, vertical long, and short axis views. The patient exercised on a Jim protocol for 7 minutes completing Stage II and 1 minute of Stage III achieving a peak heart rate of 127 bpm (81% predicted maximal heart rate) with a peak blood pressure 150/80 mmHg and a peak MET capacity of 9 METs. The patient was injected with 31.8 mCi of technetium 99m Cardiolite and subsequently stress SPECT Cardiolite nuclear imaging was obtained in the horizontal long, vertical long, and short axis views. A gated Cardiolite study at peak stress was obtained. Interpretation: Rest and stress SPECT Cardiolite nuclear imaging status post realignment, normalization, and attenuation correction, demonstrates the appearance of relative uniform tracer uptake and myocardial perfusion appearing within normal limits. There is end systolic thickening and brightening. The gated Cardiolite study demonstrates myocardial thickening and inward wall motion. The reported LVEF is 77%. Impression: 1. Rest and stress SPECT Cardiolite nuclear imaging demonstrate relative uniform tracer uptake and myocardial perfusion appearing within normal limits. 2. The gated Cardiolite study reports an LVEF of 77%. This note was generated with [email or web address] software. It may contain incorrect words, spelling, and punctuation that were not noted in checking the note before signing.
== END ==
PROVIDERS: PCP Family Medicine; Referring Provider Internal Medicine Cardiovascular Disease; Visit Provider Internal Medicine Cardiovascular Disease
DX: R07.89 Other chest pain (principal); R06.02 Shortness of breath; I10 Essential (primary) hypertension; G47.30 Sleep apnea, unspecified
CPT/HCPCS: 78452; 93017; 93306; A9500; A4216

== ENCOUNTER → 2021-05-27 09:47 | Outpatient (CLI) | payer MEDICARE, SELFPAY ==
--- NOTE | 2021-05-27 09:48 | CT_ITS ---
STUDY: CT CHEST WITHOUT CONTRAST REASON FOR EXAM: Female, 66 years old. Lung Nodules RADIATION DOSAGE (If Supplied By Facility): CTDIvol = ( 6.27 ) mGy, DLP = ( 217.92 ) mGycm TECHNIQUE: Transaxial imaging was performed without the administration of intravenous contrast material. Multiplanar coronal and sagittal images were reformatted. Individualized dose optimization techniques were used for this CT. COMPARISON: 06/22/2020 FINDINGS: Stable 8-9 mm nodule in the anterior medial right upper lobe/apex, likely fibrotic. 7 mm reticulonodular density of the left upper lobe on image 29 series 4 is stable. Lungs are hyperexpanded with centrilobular emphysema. No new pulmonary nodule. There is no demonstrated pleural abnormality. Normal heart and pericardium. There are calcifications of the coronary arteries. Normal mediastinum. Normal hilar regions. Normal unenhanced pulmonary arteries. There is atherosclerotic calcification of the aortic arch with tortuosity and elongation of the aortic arch and descending thoracic aorta. There are multi-level degenerative changes of the thoracic spine. There is no demonstrated abnormality of the visualized upper abdomen. CT/Chest without Contrast IMPRESSION: 1. Since 06/22/2020, stable. No new or enlarging pulmonary nodule. Electronically Signed: Gustavo Hernandez MD ([place]) at 20:42 EDT , Service support ,
== END ==
PROVIDERS: PCP Family Medicine; Referring Provider Internal Medicine Critical Care Medicine; Visit Provider Internal Medicine Critical Care Medicine
DX: R91.1 Solitary pulmonary nodule (principal)
CPT/HCPCS: 71250

== ENCOUNTER 2021-12-11 09:21 | Outpatient (CLI) | payer MEDICARE, SELFPAY ==
--- NOTE | 2021-12-11 12:07 | PFTCOMP_ITS ---
COMPLETE PULMONARY FUNCTION TEST INTERPRETATION Brief HPI: Patient is a 66 year old female, currently under the care of Sierra Dee, who presents to [facility] for complete pulmonary function tests secondary to diagnosis of COPD. Respiratory therapist reports good effort and reproducible results. Interpretation: Forced expiration spirometry shows a mild large airways obstructive ventilatory defect with an FEV1 of 71% predicted. There is no significant bronchodilator response by strict ATS criteria. Spirograms are of good quality and plateau slowly, indicating slowly emptying areas of the lungs. The respiratory flow volume loop shows decreased expiratory flow rates at all lung volumes consistent with airway obstruction. Lung volumes by body plethysmography show an elevated total lung capacity at 4.64 L, 121% predicted. All other lung volumes are enlarged symmetrically. Diffusion capacity by carbon monoxide is normal at 90% predicted. The airway resistance is elevated. Compared to previous pulmonary function tests from 04/15/2020, there is been a significant improvement in air trapping with hyperinflation. Impression: Irreversible mild large airways obstructive ventilatory defect with preserved diffusion capacity, but some improvement compared to previous as relates to air trapping with hyperinflation
== END 2021-12-11 23:59 | disposition home or self-care (01) ==
LOC: PSN 09:23
PROVIDERS: PCP Family Medicine; Referring Provider Nurse Practitioner Acute Care; Visit Provider Nurse Practitioner Acute Care
DX: J44.9 Chronic obstructive pulmonary disease, unspecified (principal)
CPT/HCPCS: 94060; 94726; 94729

== ENCOUNTER 2022-03-17 17:25 | Observation (INO) | payer MEDICARE, SELFPAY ==
[2022-03-17 17:25] VITALS: BP 165/151; PULSE 91; RESP 16; TEMP 36.3; O2SAT 97; BMI 20.5
--- NOTE | 2022-03-17 17:51 | CT_ITS ---
EXAM: CT ABDOMEN AND PELVIS WITH INTRAVENOUS CONTRAST CLINICAL INDICATION: pain TECHNIQUE: Helically acquired images were obtained of the abdomen and pelvis with intravenous contrast. This CT exam was performed using one or more of the following dose reduction techniques: automated exposure control, adjustment of the mA and/or kV according to patient size, and/or use of iterative reconstruction technique. This report was created using [employer] report generation technology. CONTRAST: IV 75mL Isovue-300 COMPARISON: None. FINDINGS: LOWER THORAX: Unremarkable. Lung bases are clear. No cardiomegaly. No significant pericardial effusion. ABDOMEN: LIVER: Unremarkable. Homogeneous. No focal mass. GALLBLADDER AND BILE DUCTS: Unremarkable. No calcified gallstones. No gallbladder distention or wall edema. No intra- or extrahepatic biliary ductal dilation. PANCREAS: Unremarkable. No focal cystic or solid mass. SPLEEN: Unremarkable. Normal size without focal cystic or solid mass. ADRENALS: Unremarkable. No nodules. KIDNEYS AND URETERS: Unremarkable. Normal renal size and position. No hydronephrosis. STOMACH AND BOWEL: Multiple dilated small bowel loops. Distal small bowel is normal in caliber. No focal inflammatory change. PELVIS: APPENDIX: No evidence of acute appendicitis. BLADDER: Unremarkable. REPRODUCTIVE: Enlarged, lobular, heterogeneously enhancing uterus. ABDOMEN and PELVIS: INTRAPERITONEAL SPACE: Mild free fluid. No free air. BONES/JOINTS: Unremarkable. No suspicious lytic or blastic abnormality. SOFT TISSUES: Unremarkable. No discrete abdominal or pelvic wall hernia. VASCULATURE: Unremarkable. Abdominal aorta is normal in caliber. LYMPH NODES: Unremarkable. No enlarged lymph nodes. CT/Abdomen/Pelvis W IV Cont ONLY IMPRESSION: 1. Dilated small bowel consistent with low grade/partial obstruction. 2. Heterogeneous uterus, possible fibroids. 3. Mild ascites. Electronically Signed: Fannie Flannery MD at 21:08 EDT Reading Location ID and State: [id number] / Tel , Service support ,
--- NOTE | 2022-03-17 17:51 | EKG12_ITS ---
Test Reason : STOMACH PAIN Blood Pressure : / mmHG Vent. Rate : 089 BPM Atrial Rate : 089 BPM P-R Int : 136 ms QRS Dur : 064 ms QT Int : 338 ms P-R-T Axes : 063 042 038 degrees QTc Int : 411 ms Normal sinus rhythm Normal ECG Confirmed by MILAN FONTANEZ, EDWIN ([id number]), design editor SAVANNA SHARMA ([id number]) on 03/19/2022 11:08:41 AM Referred By: CARSON Confirmed By:DEWIN YATES MD
--- NOTE | 2022-03-17 17:54 | ED.VIS.GI ---
HPI HPI - GI History of Present Illness Chief Complaint: Abd Pain Informant: patient Narrative Narrative: Patient states that she started with abdominal cramping about midnight last night. Its been going on ever since. It is somewhat diffuse but she thinks it is more in the upper abdomen than lower. It waxes and wanes but never goes away. She has had very mild waxing and waning nausea but no vomiting. She states she was moving her bowels normally. No diarrhea. No blood in the stool. No fevers or chills. No chest pain or trouble breathing. No urinary symptoms. Only surgery the patient's head is tubal ligation years ago. After significant questioning, I find out the patient did have an episode like this about 15 years ago. She states that they put a tube in her nose, sucked out a lot of bile and she does not remember what else happened. She does not know if it was an obstruction or what occurred. Patient does drink occasional beer. She has also been taking Excedrin for back pain but this is not new or different. No other medicines are new or different. [facility] Medical History (Updated 03/17/22 @ 21:[address] Eb Godinez MD) Alcohol abuse Anxiety associated with depression Arnold-Chiari deformity Benign essential HTN Cervicalgia Chronic interstitial cystitis Chronic pain disorder Climacteric COPD, moderate COVID-19 RODRIGUEZ (dyspnea on exertion) Emphysema of lung Esophageal obstruction due to food impaction Generalized hyperhidrosis HSV (herpes simplex virus) anogenital infection Lumbar spinal stenosis Lung mass Osteoporosis Overactive bladder Peripheral neuropathy Postmenopausal atrophic vaginitis Recurrent manic disorder Sleep-related breathing disorder Stage 2 moderate COPD by GOLD classification Home Medications valacyclovir 1 gram tablet 1,000 mg PO DAILY 05/09/16 [History Last Taken Unknown] melatonin 10 mg sublingual tablet 10 mg PO QHS 05/20/18 [History Last Taken Unknown] trazodone 100 mg tablet 100 mg PO QHS 05/20/18 [History Last Taken Unknown] ascorbic acid (vitamin C) 500 mg tablet,extended release 1,000 mg PO DAILY 06/26/18 [History Last Taken Unknown] budesonide-formoterol HFA 160 mcg-4.5 mcg/actuation aerosol inhaler (Symbicort) 2 puff inhalation BID #3 ea 08/24/20 [Rx Last Taken Unknown] montelukast 10 mg tablet 10 mg PO QPM #90 tabs 09/22/20 [Rx Last Taken Unknown] biotin 5,000 mcg sublingual tablet 5,000 mcg sublingual DAILY 02/23/21 [History Last Taken Unknown] cholecalciferol (vitamin D3) 125 mcg (5,000 unit) tablet (Vitamin D3) 125 mcg PO DAILY 02/23/21 [History Last Taken Unknown] omeprazole 40 mg capsule,delayed release 40 mg PO DAILY 02/23/21 [History Last Taken Unknown] alendronate 70 mg tablet 70 mg PO QWEEK 04/27/21 [History Last Taken Unknown] amlodipine 2.5 mg tablet (Norvasc) 5 mg PO DAILY 04/27/21 [History Last Taken Unknown] calcium carbonate 600 mg-vitamin D3 12.5 mcg (500 unit) capsule (Calcium 600 with Vitamin D3) 2 cap PO DAILY 04/27/21 [History Last Taken Unknown] cyanocobalamin (vitamin B-12) 2,500 mcg tablet 2,500 mcg PO DAILY 04/27/21 [History Last Taken Unknown] escitalopram oxalate 10 mg tablet (Lexapro) 20 mg PO DAILY 04/27/21 [History Last Taken Unknown] Spiriva Respimat 2.5 mcg/actuation solution for inhalation (tiotropium bromide) 2 puff inhalation QDAY #3 ea 12/06/21 [Rx Last Taken Unknown] albuterol sulfate 90 mcg/actuation aerosol inhaler (ProAir HFA) 2 puff inhalation Q6H PRN shortness of breath or wheezing #3 ea 12/19/21 [Rx Last Taken Unknown] Allergy/AdvReac Type Severity Reaction Status Date / Time lisinopril Allergy Unknown Unknown Verified 03/17/22 17:27 Fish Containing Products Allergy Angioedema Verified 03/17/22 17:27 horse serum Allergy Unknown Unknown Uncoded 03/17/22 17:27 SEAFOOD Allergy Angioedema Uncoded 03/17/22 17:27 Family History Father Hypertension Aortic aneurysm Cancer skin and bladder Surgical History (Updated 03/17/22 @ 21:[address] Rita Foster MD) H/O eye surgery H/O Spinal surgery History of bilateral tubal ligation S/P craniotomy Social History Smoking Status: Former smoker quit date: 09/02/10 pack-years: 57 second hand exposure: No alcohol intake: current alcohol intake frequency: 3 or more drinks per day Alcohol type: beer substance use type: does not use caffeine: Yes what type of physical activity do you participate in: none ROS ROS ED Constitutional Constitutional ED: Denies chills, fever(s) or subjective ENT ENT ED: Denies sore throat Cardiovascular Cardiovascular: Denies chest pain or palpitations Respiratory/Chest Respiratory/Chest: Denies cough or dyspnea Gastrointestinal Gastrointestinal: Reports abdominal pain and nausea; Denies constipation, diarrhea, melena or vomiting Genitourinary Genitourinary ED: Denies dysuria or hematuria Musculoskeletal Musculoskeletal: Denies back pain or neck pain Integumentary Denies rash Neurologic Neurologic: Denies paresthesias or weakness Endocrine Endocrinology: Denies polydipsia or polyuria Hematologic/Lymphatic Hematologic/Lymphatic: Denies easy bleeding or easy bruising Allergic/Immunologic Allergic/Immunologic ED: Denies urticaria EXAM Physical Exam Const Vital Signs: 03/17/22 17:25 03/17/22 20:22 Temperature 97.3 F L Temperature Source Temporal Pulse Rate 91 Respiratory Rate 16 18 Blood Pressure 165/151 H Blood Pressure Mean 155 Pulse Ox 97 99 Oxygen Delivery Method Room Air Room Air Positive well nourished and well developed General Appearance ED: well developed; Negative for pallor HEENT Reports moist mucous membranes Eyes General Eye ED: Negative for scleral icterus Resp normal respiratory effort and clear to auscultation bilaterally Cardio regular rate and regular rhythm GI GI Narrative: Patient has mild nonfocal tenderness but no rebound or guarding. Her abdomen does look slightly distended especially for her relatively small body habitus. Bowel sounds are increased. Auscultation: hyperactive bowel sounds Back/Spine no CVA tenderness Extremity full ROM Neuro Sensorium / Orientation: alert Psych mental status grossly normal Skin no wounds General Skin Exam: Negative for jaundice or pallor MDM MDM MDM Narrative Medical decision making narrative: Patient's blood work shows mild elevation of white count and hemoglobin. Platelets are normal. Electrolytes show no marked abnormality. Lactate is normal. Liver function test and lipase are essentially normal. Glucose is just minimally elevated at 128. Urine showed no acute process. CT scan showed mild ascites and there is dilated small bowel with low-grade partial obstruction. Patient's not nauseated now. She has never vomited. She did have 2 bowel movements this morning. No blood. She still has distention discomfort. I think she should come in the hospital with this. I talked to her more about any further activity. Her scan almost look like she had oral contrast but she has not had any for years. She has been putting collagen in her coffee but has been doing this for several months. She is not taking iron supplementation. I did discuss case with hospitalist. NG tube is preferred. Patient will be admitted. Lab Data Attestation: I reviewed the patient's lab results. Labs: Laboratory Results - last 24 hr 03/17/22 03/17/22 03/17/22 18:03 18:03 18:03 WBC 11.5 H RBC 4.68 Hgb 15.9 H Hct 47.2 H MCV 100.9 H MCH 34.0 H MCHC 33.7 RDW Std Deviation 46.3 H RDW Coeff of Jordon 12.3 Plt Count 331 MPV 9.0 Immature Gran % (Auto) 0.300 Neut % (Auto) 75.8 H Lymph % (Auto) 12.9 L [place] % (Auto) 8.7 Eos % (Auto) 1.7 Baso % (Auto) 0.6 Absolute Neuts (auto) 8.7 H Absolute Lymphs (auto) 1.49 Nucleated RBC % 0 Sodium 138 Potassium 3.8 Chloride 104 Carbon Dioxide 28.0 Anion Gap 6 BUN 12 Creatinine 0.74 Estim Creat Clear Calc 37.64 Est GFR (MDRD) Af Amer 101 Est GFR (MDRD) Non-Af 83 BUN/Creatinine Ratio 16.2 Glucose 128 H Lactic Acid 0.6 Calcium 8.9 Total Bilirubin 0.40 AST 17 ALT 19 Alkaline Phosphatase 101 Total Protein 7.3 Albumin 3.6 Globulin 3.7 Albumin/Globulin Ratio 1.0 Lipase 212 Urine Color Urine Clarity Urine pH Ur Specific [place] Urine Protein Urine Glucose (UA) Urine Ketones Urine Occult Blood Urine Nitrite Urine Bilirubin Urine Urobilinogen Ur Leukocyte Esterase 03/17/22 19:10 WBC RBC Hgb Hct MCV MCH MCHC RDW Std Deviation RDW Coeff of Jordon Plt Count MPV Immature Gran % (Auto) Neut % (Auto) Lymph % (Auto) [place] % (Auto) Eos % (Auto) Baso % (Auto) Absolute Neuts (auto) Absolute Lymphs (auto) Nucleated RBC % Sodium Potassium Chloride Carbon Dioxide Anion Gap BUN Creatinine Estim Creat Clear Calc Est GFR (MDRD) Af Amer Est GFR (MDRD) Non-Af BUN/Creatinine Ratio Glucose Lactic Acid Calcium Total Bilirubin AST ALT Alkaline Phosphatase Total Protein Albumin Globulin Albumin/Globulin Ratio Lipase Urine Color Yellow Urine Clarity Clear Urine pH 6.0 Ur Specific [place] 1.010 Urine Protein Negative Urine Glucose (UA) Normal Urine Ketones 5 H Urine Occult Blood 25 H Urine Nitrite Negative Urine Bilirubin Negative Urine Urobilinogen Normal Ur Leukocyte Esterase Negative Radiography Diagnostic Testing: Clinical Impression(s) from Imaging Studies Abdomen/Pelvis CT 03/17/22 17:51 IMPRESSION: 1. Dilated small bowel consistent with low grade/partial obstruction. 2. Heterogeneous uterus, possible fibroids. 3. Mild ascites. Electronically Signed: Fannie Flannery MD at 21:08 EDT Reading Location ID and State: [id number] / Tel , Service support , Discharge Plan Triage Chief Complaint: Abd Pain ED Provider: Eb Godinez Dx/Rx/DC Orders Clinical Impression: Partial small bowel obstruction, Nausea, Abdominal pain Prescriptions: No Action escitalopram oxalate [Lexapro] 10 mg tablet 20 mg PO DAILY alendronate 70 mg tablet 70 mg PO QWEEK calcium carbonate-vitamin D3 [Calcium 600 with Vitamin D3] 600 mg(1,500mg) -500 unit capsule 2 cap PO DAILY cyanocobalamin (vitamin B-12) 2,500 mcg tablet 2,500 mcg PO DAILY amlodipine [Norvasc] 2.5 mg tablet 5 mg PO DAILY valacyclovir 1,000 MG tablet 1,000 mg PO DAILY trazodone 100 MG tablet 100 mg PO QHS melatonin 10 MG tablet 10 mg PO QHS ascorbic acid (vitamin C) 500 MG tablet extended release 1,000 mg PO DAILY omeprazole 40 mg Capsule,Delayed Release(Dr/Ec) 40 mg PO DAILY cholecalciferol (vitamin D3) [Vitamin D3] 125 mcg (5,000 unit) Tablet 125 mcg PO DAILY biotin 5,000 mcg Tablet, Sublingual 5,000 mcg SUBLINGUAL DAILY Symbicort 160-4.5 mcg/actuation HFA aerosol inhaler 2 puff INHALATION BID Qty: 3 3RF Rx Instructions: administer with spacer, rinse mouth after each use montelukast 10 mg tablet 10 mg PO QPM Qty: 90 3RF Spiriva Respimat 2.5 mcg/actuation mist 2 puff INHALATION QDAY Qty: 3 3RF Rx Instructions: administer at approximately the same time(s) each day albuterol sulfate [ProAir HFA] 90 mcg/actuation HFA aerosol inhaler 2 puff INHALATION Q6H PRN (Reason: shortness of breath or wheezing) Qty: 3 3RF Primary Care Provider: Rito Chew Referrals: Rito Chew MD [Primary Care Provider] - Disposition Disposition: Acute Care Hospital [facility]
[2022-03-17] MEDS: Morphine 4 MG/ML Syringe IV ×2 (18:07→21:22)
[2022-03-17] MEDS: Ondansetron 4 MG/2 ML Vial IV (18:07)
[2022-03-17 18:17] LABS: Absolute Lymphocyte Count 1.49 X10^3/uL (0.83-4.51); Absolute Neutrophil Count 8.7 X10^3/uL (2.0-7.7); Basophil# 0.07 X10^3/uL; Basophil% 0.6 % (0-1); Eosinophils% 1.7 % (0-5); Hematocrit 47.2 % (37-47); Hemoglobin 15.9 g/dL (12.0-15.0); Lymphocyte # 1.49 X10^3/ul (0.83-4.51); Lymphocyte % 12.9 % (19-41); Mean Corp Hgb Conc 33.7 g/dL (32-36); Mean Corpuscular Volume 100.9 fL (81-99); Monocyte% 8.7 % (0-10); NRBC Flagged by Analyzer 0 % (0-5); Neutrophil # 8.74 X10^3/uL (2.7-7.7); Neutrophil % 75.8 % (47-70); Platelet Count 331 K/mm3 (150-450); RBC Distribution Width CV 12.3 % (11.6-14.6); RBC Distribution Width SD 46.3 fl (35.1-43.9); Red Blood Count 4.68 M/mm3 (4.2-5.4); White Blood Count 11.5 K/mm3 (4.4-11.0)
[2022-03-17 18:36] LABS: AST(SGOT) 17 U/L (15-37); Alanine Aminotransfer ALT/SGPT 19 U/L (13-56); Albumin, Serum 3.6 g/dL (3.2-5.0); Alkaline Phosphatase 101 U/L (45-117); Anion Gap 6 (5-15); BUN 12 mg/dL (7-18); BUN/Creat Ratio 16.2 RATIO (10-20); Calcium,Total 8.9 mg/dL (8.5-10.1); Chloride 104 mmol/L (98-107); Creatinine, Serum 0.74 mg/dL (0.55-1.02); EST Glomerular Filtration Rate 83 mL/min (>60); Est Glom Filt Rate - Afr Amer 101 mL/min (>60); Estimated Creatinine Clearance 37.64 ml/min; Globulin 3.7 g/dL (2.2-4.2); Glucose 128 mg/dL (74-106); Lipase 212 U/L (73-393); Potassium 3.8 mmol/L (3.5-5.1); Protein, Total 7.3 g/dL (6.4-8.2); Sodium Level 138 mmol/L (136-145)
[2022-03-17 18:43] LABS: Lactic Acid 0.6 mmol/L (0.4-1.9)
[2022-03-17 19:21] LABS: Color, Urine Yellow (Yellow); Glucose, Dipstick Normal (Normal); Ketone-Dipstick 5 mg/dl (Negative); Leukocyte Esterase-Dipstick Negative /ul (Negative); Nitrite-Dipstick Negative (Negative); Occult Blood-Urine 25 /ul (Negative); Protein-Dipstick Negative (Negative); Urine Bilirubin Dipstick Negative (Negative); Urine Clarity Clear (Clear); Urine Urobilinogen Normal (Normal)
[2022-03-17 20:22] VITALS: RESP 18; O2SAT 99
--- NOTE | 2022-03-17 21:16 | PCM.HP.STD ---
HPI - General General Date of Admission: 03/17/22 Date of Service: 03/17/22 Chief Complaint: Abdominal pain. HPI Narrative The patient is a 67 y/o F w/ PMHx: Hx ? Lung mass, Thyroid nodules being followed routinely (denies it being cancerous), Asthma-COPD, Chronic pain syndrome, HTN, HLD, Hx arnold-marilyn malformation, Anxiety and Depression, EtOH abuse (5-6 beers daily), Former Tobacco use, GERD who presents to the [facility] ED on 03/17/22 with history of onset abdominal cramping approximately midnight night prior with ongoing symptoms since noted to be diffuse but worse in the upper abdomen than lower noted to be waxing and waning with notable bloating with mild nausea with no emesis with reportedly normal bowel movements but states she has blue water from cleaning agent in her tank and unsure what her bowel movements have looked likely but belives she has not had recently altered bowels including diarrhea nor any fevers or chills with history of similar episode approximately 15 years prior requiring NG tube placement although patient is a poor historian about these prior events. She rates her current discomfort 3-4/10 in severity, was potentially she notes up to 5-6/10 prior. Work-up in the ED included T97.3, heart rate 91, BP 165/151, respiratory rate 16, 97% on room air, CBC with WC 11.5, hemoglobin 15.9, platelet 331 with left shift, CMP with glucose 128, lactic acid 0.6, lipase 212 otherwise unremarkable, urinalysis with no obvious evidence of UTI or concerning findings, CT abdomen pelvis with noted dilated small bowel consistent with a low-grade/partial obstruction, heterogeneous uterus possibly fibroids, mild ascites. In the ED patient administered Zofran, morphine 4 mg IV x2 as well as 1 L normal saline bolus. [facility] Medical History (Updated 03/17/22 @ 21:33 by Breanna Seay) Alcohol abuse Anxiety associated with depression Arnold-Chiari deformity Asthma Benign essential HTN Cervicalgia Chronic interstitial cystitis Chronic pain disorder Climacteric COPD (chronic obstructive pulmonary disease) COPD, moderate COVID-19 RODRIGUEZ (dyspnea on exertion) Emphysema of lung Esophageal obstruction due to food impaction Former smoker Generalized hyperhidrosis HSV (herpes simplex virus) anogenital infection Hypertension Lumbar spinal stenosis Lung mass Osteoporosis Overactive bladder Peripheral neuropathy Postmenopausal atrophic vaginitis Recurrent manic disorder Sleep-related breathing disorder Stage 2 moderate COPD by GOLD classification Home Medications valacyclovir 1 gram tablet 1,000 mg PO DAILY 05/09/16 [History Last Taken Unknown] melatonin 10 mg sublingual tablet 10 mg PO QHS 05/20/18 [History Last Taken Unknown] trazodone 100 mg tablet 100 mg PO QHS 05/20/18 [History Last Taken Unknown] ascorbic acid (vitamin C) 500 mg tablet,extended release 1,000 mg PO DAILY 06/26/18 [History Last Taken Unknown] budesonide-formoterol HFA 160 mcg-4.5 mcg/actuation aerosol inhaler (Symbicort) 2 puff inhalation BID #3 ea 08/24/20 [Rx Last Taken Unknown] montelukast 10 mg tablet 10 mg PO QPM #90 tabs 09/22/20 [Rx Last Taken Unknown] biotin 5,000 mcg sublingual tablet 5,000 mcg sublingual DAILY 02/23/21 [History Last Taken Unknown] cholecalciferol (vitamin D3) 125 mcg (5,000 unit) tablet (Vitamin D3) 125 mcg PO DAILY 02/23/21 [History Last Taken Unknown] omeprazole 40 mg capsule,delayed release 40 mg PO DAILY 02/23/21 [History Last Taken Unknown] alendronate 70 mg tablet 70 mg PO QWEEK 04/27/21 [History Last Taken Unknown] amlodipine 2.5 mg tablet (Norvasc) 5 mg PO DAILY 04/27/21 [History Last Taken Unknown] calcium carbonate 600 mg-vitamin D3 12.5 mcg (500 unit) capsule (Calcium 600 with Vitamin D3) 2 cap PO DAILY 04/27/21 [History Last Taken Unknown] cyanocobalamin (vitamin B-12) 2,500 mcg tablet 2,500 mcg PO DAILY 04/27/21 [History Last Taken Unknown] escitalopram oxalate 10 mg tablet (Lexapro) 20 mg PO DAILY 04/27/21 [History Last Taken Unknown] Spiriva Respimat 2.5 mcg/actuation solution for inhalation (tiotropium bromide) 2 puff inhalation QDAY #3 ea 12/06/21 [Rx Last Taken Unknown] albuterol sulfate 90 mcg/actuation aerosol inhaler (ProAir HFA) 2 puff inhalation Q6H PRN shortness of breath or wheezing #3 ea 12/19/21 [Rx Last Taken Unknown] vitamin B12 1 mg-folic acid 0.8 mg tablet 1 tab PO DAILY 03/17/22 [History Last Taken Unknown] Allergy/AdvReac Type Severity Reaction Status Date / Time lisinopril Allergy Unknown Unknown Verified 03/17/22 17:27 Fish Containing Products Allergy Angioedema Verified 03/17/22 17:27 horse serum Allergy Unknown Unknown Uncoded 03/17/22 17:27 SEAFOOD Allergy Angioedema Uncoded 03/17/22 17:27 Family History (Updated 03/17/22 @ 22:[address] Rita Foster MD) Father Hypertension Aortic aneurysm Cancer skin and bladder Mother Brain aneurysm Surgical History (Updated 03/17/22 @ 21:[address] Rita Foster MD) H/O eye surgery H/O Spinal surgery History of bilateral tubal ligation S/P craniotomy Social History (Updated 03/17/22 @ 22:[address] Rita Foster MD) household members: none Smoking Status: Former smoker quit date: 09/02/10 pack-years: 57 second hand exposure: No alcohol intake: current alcohol intake frequency: 3 or more drinks per day Alcohol type: beer details: Drinks 5-6 beers daily, nearly no breaks in her days of intake. substance use type: does not use caffeine: Yes what type of physical activity do you participate in: none ROS ROS Narrative Admission Review of Systems: CONSTITUTIONAL: No weight loss, fever, chills, + weakness or fatigue. HEENT: Eyes: No visual loss, blurred vision, double vision or yellow sclerae. Ears, Nose, Throat: No hearing loss, sneezing, congestion, runny nose or sore throat. SKIN: No rash or itching, lesions, wounds. CARDIOVASCULAR: No chest pain, chest pressure or chest discomfort, palpitations, edema, orthopnea, syncopal events. RESPIRATORY: + shortness of breath chronically, occasional cough, No marked sputum, wheezing, hemoptysis. GASTROINTESTINAL: + anorexia, nausea without vomiting, abdominal pain, abdominal bloating, No melena, BRBPR. GENITOURINARY: No dysuria, frequency, urgency or retention. NEUROLOGICAL: No headache, dizziness, syncope, paralysis, ataxia, numbness or tingling in the extremities, focal weakness, change in bowel or bladder control, seizure. MUSCULOSKELETAL: No muscle, back pain, joint pain or stiffness. HEMATOLOGIC: No anemia, bleeding or bruising. LYMPHATICS: No enlarged nodes. No history of splenectomy. PSYCHIATRIC: + history of depression or anxiety. ENDOCRINOLOGIC: No reports of sweating, cold or heat intolerance. No polyuria or polydipsia. ALLERGIES: + history of asthma, rhinitis. Vital Signs Vital Signs Vital Signs: 03/17/22 17:25 03/17/22 20:22 Temperature 97.3 F L Temperature Source Temporal Pulse Rate 91 Respiratory Rate 16 18 Blood Pressure 165/151 H Blood Pressure Mean 155 Pulse Ox 97 99 Oxygen Delivery Method Room Air Room Air Weight Weight: 95 lb Body Mass Index (BMI) 20.5 Physical Exam Narrative Physical Examination: General: Awake, alert, oriented x 3 and cooperative, seated upright in the ED bed in no apparent distress, fatigued appearing, notes abdominal discomfort is lessened Skin: Normal color, normal turgor, no icterus, no cyanosis. HEENT: AT/NC, EOMI, PERRLA, dry MM, no carotid bruits or JVD noted. Lungs: Diffusely diminished, greater bases, appropriate effort, no rales, ronchi or wheezing. Heart: Regular rate and rhythm; no gallop, rub audible. Abdomen: Soft, generalized discomfort with palpation although worse bilateral upper quadrants, mildly distended, no rebound or guarding, absent bowel sounds diffusely, no obvious HSM. Extremities: No cyanosis, clubbing, or edema. Neurological: Patient awake, alert, oriented as noted, cognitive function intact; pupils equally reactive to light and accommodation, cranial nerves II-XII grossly normal, moving all 4 extremities, no focal deficits, strength mildly to moderately globally Adali secondary to acute complaints Psychiatric: Affect appears fatigued otherwise normal, no acute evidence of depressive or anxiety feelings. Results Lab / Micro Data Result Diagrams: 03/17/22 18:03 03/17/22 18:03 Labs: Laboratory Results - last 24 hr 03/17/22 18:03: WBC 11.5 H, RBC 4.68, Hgb 15.9 H, Hct 47.2 H, MCV 100.9 H, MCH 34.0 H, MCHC 33.7, RDW Std Deviation 46.3 H, RDW Coeff of Jordon 12.3, Plt Count 331, MPV 9.0, Immature Gran % (Auto) 0.300, Neut % (Auto) 75.8 H, Lymph % (Auto) 12.9 L, [place] % (Auto) 8.7, Eos % (Auto) 1.7, Baso % (Auto) 0.6, Absolute Neuts (auto) 8.7 H, Absolute Lymphs (auto) 1.49, Nucleated RBC % 0 03/17/22 18:03: Sodium 138, Potassium 3.8, Chloride 104, Carbon Dioxide 28.0, Anion Gap 6, BUN 12, Creatinine 0.74, Estim Creat Clear Calc 37.64, Est GFR (MDRD) Af Amer 101, Est GFR (MDRD) Non-Af 83, BUN/Creatinine Ratio 16.2, Glucose 128 H, Calcium 8.9, Total Bilirubin 0.40, AST 17, ALT 19, Alkaline Phosphatase 101, Total Protein 7.3, Albumin 3.6, Globulin 3.7, Albumin/Globulin Ratio 1.0, Lipase 212 03/17/22 18:03: Lactic Acid 0.6 03/17/22 19:10: Urine Color Yellow, Urine Clarity Clear, Urine pH 6.0, Ur Specific [place] 1.010, Urine Protein Negative, Urine Glucose (UA) Normal, Urine Ketones 5 H, Urine Occult Blood 25 H, Urine Nitrite Negative, Urine Bilirubin Negative, Urine Urobilinogen Normal, Ur Leukocyte Esterase Negative Radiology Impression Abdomen/Pelvis CT 03/17/22 17:51 IMPRESSION: 1. Dilated small bowel consistent with low grade/partial obstruction. 2. Heterogeneous uterus, possible fibroids. 3. Mild ascites. Electronically Signed: Fannie Flannery MD at 21:08 EDT Reading Location ID and State: [id number] / Tel , Service support , Assessment & Plan Assessment/Plan (1) Partial small bowel obstruction: PLAN: Plan The patient is a 67 y/o F w/ PMHx: Hx ? Lung mass, Thyroid nodules being followed routinely (denies it being cancerous), Asthma-COPD, Chronic pain syndrome, HTN, HLD, Hx arnold-marilyn malformation, Anxiety and Depression, EtOH abuse, Former Tobacco use, GERD who presents to the [facility] ED on 03/17/22 with history of onset abdominal cramping approximately midnight night prior with ongoing symptoms since noted to be diffuse but worse in the upper abdomen than lower noted to be waxing and waning with notable bloating with mild nausea with no emesis. #1. Abdominal pain, nausea, emesis w/ SBO: Will admit to MS, maintain on IVFs, will continue NGT to suction, strict I&Os, IV pain/anti-emetics PRN, serial KUB as needed to monitor bowel function, Famotidine IV, maintain NPO on bowel rest. General surgery consulted, pending. #2. EtOH Abuse: Patient notes routine consumption of at least 5-6 normal sized beers per day. Will maintain on CIWA protocol, given n.p.o. status will hold on addition of MVI, thiamine and folic acid. Magnesium and phosphorus levels to be requested. Case management consulted. If any concerns for withdrawal may necessitate usage of IV phenobarbital given acute presentation as noted #1. #3. Chronic COPD-asthma: Patient following with pulmonary medicine we will hold home inhalers in the interim transition to ATC duonebs, PRN albuterol, HOB, IS parameters. #4. Anxiety and depression: We will temporarily hold patient home escitalopram as well as trazodone regimen but restart once oral intake commenced. #5. Hypertension: We will temporarily hold patient home amlodipine, resume once oral intake commenced, as needed IV hydralazine in interim. #6. Tobacco Abuse: Encouraged cessation, inpatient consultation per RT, NR if desired. #7. Allergic rhinitis: We will temporarily hold patient's home montelukast regimen, resume once oral intake commenced. #8. GERD: We will maintain on IV famotidine as noted. #9. DVT prophylaxis: SCDs, Lovenox. Charges/Coding Visit Charges Inpatient E&M: 82638 Init Hosp L3
--- NOTE | 2022-03-17 21:26 | RAD_ITS ---
STUDY: X-RAY - ABDOMEN/PELVIS REASON FOR EXAM: Female, 67 years old. NG tube placement TECHNIQUE: Single AP view of the abdomen / pelvis. COMPARISON: None. FINDINGS: Normal visualized lung bases. NG tube makes a loop in the stomach, tip is in the body of the stomach Air fluid levels noted in a stairstepping pattern consistent with ileus. There is no demonstrated free abdominal air. The visualized liver, spleen and kidneys are grossly normal in size and morphology. Normal soft tissue structures. There are degenerative bony changes with a scoliosis. RAD/Abdomen Single View (Portable) IMPRESSION: NG tube tip makes a loop in the stomach, tip is in the body of the stomach Ileus Degenerative bony changes with dextroscoliosis Electronically Signed: Santi Person MD at 22:53 EDT ,
[2022-03-17 21:48] VITALS: BP 160/89; PULSE 95; RESP 18; TEMP 37.1; O2SAT 95
[2022-03-17 22:27] LABS: Magnesium 2.2 mg/dL (1.6-2.6); Phosphorus 2.9 mg/dL (2.5-4.9)
[2022-03-17 22:51] VITALS: BP 131/81; PULSE 80; RESP 16; TEMP 36.7; O2SAT 100; BMI 20.1
[2022-03-17] MEDS: 0.9% Normal Saline 1,000 ML 100 ML IV (23:30)
[2022-03-17] MEDS: Famotidine 200 MG/20 ML MDV 20 MG in 0.9% Normal Saline (Pres. free 8 ML 300 MG IV (23:31)
[2022-03-17] MEDS: 0.9% Saline Lock 10 ML Syringe IV (23:32)
[2022-03-18] VITALS (8 sets, daily range): BP systolic 132–142; BP diastolic 83–92; PULSE 89–101; RESP 16–20; TEMP 36.2–36.8; O2SAT 92–98
[2022-03-18] MEDS: Phenol/Sodium Phenolate 180ML 3 SPRAY MUCOUS MEM (00:39)
[2022-03-18] MEDS: Morphine 4 MG/ML Syringe IV ×2 (02:42→06:06)
[2022-03-18] MEDS: proCHLORPERazine 10 MG/2 ML Vial 5 MG IV ×2 (02:42→08:19)
[2022-03-18] MEDS: Ondansetron 4 MG/2 ML Vial IV (06:06)
--- NOTE | 2022-03-18 06:15 | RAD_ITS ---
STUDY: X-RAY - ABDOMEN/PELVIS REASON FOR EXAM: Female, 67 years old. SBO TECHNIQUE: Single AP view of the abdomen / pelvis. COMPARISON: Yesterday FINDINGS: Esophagogastric tube redemonstrated with tip now seen in the right upper abdomen, likely gastric outflow or proximal duodenum. Mildly dilated loops of small bowel in the central left upper abdomen with luminal dilation measuring up to 3.4 cm. There is no demonstrated free abdominal air. The visualized liver, spleen and kidneys are grossly normal in size and morphology. Normal soft tissue structures. There are diffuse degenerative changes of the visualized lumbar spine. Laminectomy changes noted. RAD/Abdomen Single View (Portable) IMPRESSION: 1. Stable partial small bowel obstruction or ileus. 2. Advancement of esophagogastric tube with tip now in the proximal duodenum or gastric outflow. Electronically Signed: Gustavo Hernandez MD ([place]) at 8:28 EDT ,
--- NOTE | 2022-03-18 06:45 | CON.PCM.SX_ITS ---
Assessment & Plan Assessment/Plan (1) Partial small bowel obstruction: PLAN: Plan Patient's KUB does show stool in the right colon, but there are a couple dilated small bowel loops. we will do a modified Gastrografin small bowel follow-through with KUB in 1 hour and 2-hour. If this goes through well patient will have NG DC'd and started on a diet. Jazz Collins M.D. Pager: [phone] [facility] [address] [place] [address], Outpatient Pavilion, [address] [place] [address] Office: [phone] HPI Consult Data Date of Consult: 03/18/22 HPI Narrative Reason for Consultation: psbo HPI Narrative: JEYSON MARTINEZ, is a 67 F who presented to the ER due to mid abdominal pain starting Saturday night and continuing until she came to the ER. Patient denies any vomiting did have some nausea. Patient ate normally Saturday did not really have much of anything to eat yesterday. Last bowel movements yesterday morning normal per patient??patient states she usually has a couple normally formed bowel movements daily. Patient's only abdominal surgery is a tubal ligation. CT abdomen pelvis was done showed partial bowel obstruction and some mild ascites. Currently patient states her pain is improved she is still taking regular doses of morphine however states this is mostly for her headache. Patient denies any flatus this morning or a bowel movement. Morning KUB does show that previous stool in the small bowel has moved to the right colon. Still has a couple dilated small bowel loops. [facility] Medical History (Updated 03/17/22 @ 21:33 by Breanna Seay) Alcohol abuse Anxiety associated with depression Arnold-Chiari deformity Asthma Benign essential HTN Cervicalgia Chronic interstitial cystitis Chronic pain disorder Climacteric COPD (chronic obstructive pulmonary disease) COPD, moderate COVID-19 RODRIGUEZ (dyspnea on exertion) Emphysema of lung Esophageal obstruction due to food impaction Former smoker Generalized hyperhidrosis HSV (herpes simplex virus) anogenital infection Hypertension Lumbar spinal stenosis Lung mass Osteoporosis Overactive bladder Peripheral neuropathy Postmenopausal atrophic vaginitis Recurrent manic disorder Sleep-related breathing disorder Stage 2 moderate COPD by GOLD classification Home Medications valacyclovir 1 gram tablet 1,000 mg PO DAILY infection 05/09/16 [History Last Taken 03/16/22 09:00] melatonin 10 mg sublingual tablet 10 mg PO QHS sleeping pill 05/20/18 [History Last Taken 03/16/22 21:00] trazodone 100 mg tablet 100 mg PO QHS sleep 05/20/18 [History Last Taken 03/16/22 21:00] ascorbic acid (vitamin C) 500 mg tablet,extended release 1,000 mg PO DAILY supplement 06/26/18 [History Last Taken 03/16/22 09:00] biotin 5,000 mcg sublingual tablet 5,000 mcg sublingual DAILY supplement 02/23/21 [History Last Taken 03/16/22 09:00] cholecalciferol (vitamin D3) 125 mcg (5,000 unit) tablet (Vitamin D3) 125 mcg PO DAILY supplement 02/23/21 [History Last Taken 03/16/22 09:00] omeprazole 40 mg capsule,delayed release 40 mg PO DAILY acid reflux 02/23/21 [History Last Taken 03/16/22 06:00] alendronate 70 mg tablet 70 mg PO QWEEK Osteoporosis 04/27/21 [History Last Taken 03/12/22 09:00] amlodipine 2.5 mg tablet (Norvasc) 5 mg PO DAILY Blood pressure 04/27/21 [History Last Taken 03/16/22 09:00] calcium carbonate 600 mg-vitamin D3 12.5 mcg (500 unit) capsule (Calcium 600 with Vitamin D3) 2 cap PO DAILY supplement 04/27/21 [History Last Taken 03/16/22 09:00] cyanocobalamin (vitamin B-12) 2,500 mcg tablet 2,500 mcg PO DAILY supplement 04/27/21 [History Last Taken 03/16/22 09:00] albuterol sulfate 90 mcg/actuation aerosol inhaler (ProAir HFA) 2 puff inhalation Q6H PRN shortness of breath or wheezing #3 ea 12/19/21 [Rx Last Taken 03/17/22 09:00] budesonide-formoterol HFA 160 mcg-4.5 mcg/actuation aerosol inhaler (Symbicort) 2 puff inhalation BID copd 03/17/22 [History Last Taken 03/17/22 09:00] montelukast 10 mg tablet 10 mg PO QPM breathing 03/17/22 [History Last Taken 03/16/22 21:00] tiotropium bromide 2.5 mcg/actuation mist for inhalation (Spiriva Respimat) 2 puff inhalation QDAY copd 03/17/22 [History Last Taken 03/17/22 09:00] vitamin B12 1 mg-folic acid 0.8 mg tablet 1 tab PO DAILY supplement 03/17/22 [History Last Taken Unknown] Allergy/AdvReac Type Severity Reaction Status Date / Time lisinopril Allergy Unknown Unknown Verified 03/17/22 17:27 Fish Containing Products Allergy Angioedema Verified 03/17/22 17:27 horse serum Allergy Unknown Unknown Uncoded 03/17/22 17:27 SEAFOOD Allergy Angioedema Uncoded 03/17/22 17:27 Family History (Updated 03/17/22 @ 22:[address] Rita Foster MD) Father Hypertension Aortic aneurysm Cancer skin and bladder Mother Brain aneurysm Surgical History (Updated 03/17/22 @ 21:[address] Rita Foster MD) H/O eye surgery H/O Spinal surgery History of bilateral tubal ligation S/P craniotomy Social History (Updated 03/17/22 @ 22:[address] Rita Foster MD) household members: none Smoking Status: Former smoker quit date: 09/02/10 pack-years: 57 second hand exposure: No alcohol intake: current alcohol intake frequency: 3 or more drinks per day Alcohol type: beer details: Drinks 5-6 beers daily, nearly no breaks in her days of intake. substance use type: does not use caffeine: Yes what type of physical activity do you participate in: none ROS Constitutional Constitutional: Reports anorexia and headache(s); Denies fever(s) Eyes Eyes: Denies blurry vision ENT HEENT: Denies dysphagia Cardiovascular Cardiovascular: Denies chest pain Respiratory/Chest Respiratory/Chest: Denies cough Gastrointestinal Gastrointestinal: Reports abdominal pain, bloating and nausea; Denies constipation, diarrhea or vomiting Genitourinary Genitourinary: Denies dysuria Musculoskeletal Musculoskeletal: Denies difficulty walking Integumentary Integumentary: Denies rash Neurologic Neurologic: Denies focal weakness Psychiatric Psychiatric: Denies depression Hematologic/Lymphatic Hematologic/Lymphatic: Denies easy bleeding Physical Exam Const alert, oriented x3 and no apparent distress HEENT normocephalic and head/scalp atraumatic Resp normal respiratory effort Cardio regular rate GI soft to palpation GI Narrative: Minimal abdominal distention Palpation: tender RLQ; Negative for guarding Extremity no clubbing, cyanosis or edema Neuro CN's II-XII intact bilaterally Psych mental status grossly normal Lab / Micro Data Result Diagrams: 03/18/22 06:40 03/17/22 18:03 Labs: Laboratory Results - last 24 hr 03/17/22 18:03: WBC 11.5 H, RBC 4.68, Hgb 15.9 H, Hct 47.2 H, MCV 100.9 H, MCH 34.0 H, MCHC 33.7, RDW Std Deviation 46.3 H, RDW Coeff of Jordon 12.3, Plt Count 331, MPV 9.0, Immature Gran % (Auto) 0.300, Neut % (Auto) 75.8 H, Lymph % (Auto) 12.9 L, [place] % (Auto) 8.7, Eos % (Auto) 1.7, Baso % (Auto) 0.6, Absolute Neuts (auto) 8.7 H, Absolute Lymphs (auto) 1.49, Nucleated RBC % 0 03/17/22 18:03: Sodium 138, Potassium 3.8, Chloride 104, Carbon Dioxide 28.0, Anion Gap 6, BUN 12, Creatinine 0.74, Estim Creat Clear Calc 37.64, Est GFR (MDRD) Af Amer 101, Est GFR (MDRD) Non-Af 83, BUN/Creatinine Ratio 16.2, Glucose 128 H, Calcium 8.9, Total Bilirubin 0.40, AST 17, ALT 19, Alkaline Phosphatase 101, Total Protein 7.3, Albumin 3.6, Globulin 3.7, Albumin/Globulin Ratio 1.0, Lipase 212 03/17/22 18:03: Lactic Acid 0.6 03/17/22 18:03: Phosphorus 2.9, Magnesium 2.2 03/17/22 19:10: Urine Color Yellow, Urine Clarity Clear, Urine pH 6.0, Ur Specific [place] 1.010, Urine Protein Negative, Urine Glucose (UA) Normal, Urine Ketones 5 H, Urine Occult Blood 25 H, Urine Nitrite Negative, Urine Bilirubin Negative, Urine Urobilinogen Normal, Ur Leukocyte Esterase Negative Radiology Impression Abdomen/Pelvis CT 03/17/22 17:51 IMPRESSION: 1. Dilated small bowel consistent with low grade/partial obstruction. 2. Heterogeneous uterus, possible fibroids. 3. Mild ascites. Electronically Signed: Fannie Flannery MD at 21:08 EDT , KUB X-Ray 03/17/22 21:26 IMPRESSION: NG tube tip makes a loop in the stomach, tip is in the body of the stomach Ileus Degenerative bony changes with dextroscoliosis Electronically Signed: Santi Person MD at 22:53 EDT , Charges/Coding Visit Charges Inpatient E&M: 75482 Init Hosp L3
[2022-03-18 06:54] LABS: Absolute Neutrophil Count 8.4 X10^3/uL (2.0-7.7); Basophil# 0.05 X10^3/uL; Basophil% 0.5 % (0-1); Eosinophil# 0.17 X10^3/uL; Eosinophils% 1.5 % (0-5); Hematocrit 43.7 % (37-47); Hemoglobin 14.6 g/dL (12.0-15.0); Lymphocyte % 11.7 % (19-41); Mean Corp Hgb Conc 33.4 g/dL (32-36); Mean Corpuscular Hgb 34.1 pg (27.0-32.0); Mean Corpuscular Volume 102.1 fL (81-99); Mean Platelet Vol. 8.8 fl (6.2-12.0); Monocyte# 1.13 X10^3/uL; Monocyte% 10.2 % (0-10); NRBC Flagged by Analyzer 0 % (0-5); Neutrophil # 8.41 X10^3/uL (2.7-7.7); Neutrophil % 75.8 % (47-70); Platelet Count 277 K/mm3 (150-450); RBC Distribution Width CV 12.5 % (11.6-14.6); RBC Distribution Width SD 47.5 fl (35.1-43.9); Red Blood Count 4.28 M/mm3 (4.2-5.4); White Blood Count 11.1 K/mm3 (4.4-11.0)
--- NOTE | 2022-03-18 07:00 | RAD_ITS ---
Small bowel series Indication: Partial small bowel obstruction Esophagogastric tube extends to the distal stomach. Small bowel serial films performed following ingestion of water soluble contrast. The duodenum, jejunum and ileum are normal in appearance with normal mucosal fold pattern. Small bowel transit time, 120 minutes. 180 mL GASTROGRAFIN mixed with 180 mL water administered through the esophagogastric tube. RAD/Small Bowel Series Only IMPRESSION: Bowel contrast extends to the colon at 120 minutes. Electronically Signed: Gustavo Hernandez MD ([place]) at 9:42 EDT ,
[2022-03-18] MEDS: Ipratropium/Albuterol Sulfate 3 ML AMPUL.NEB INHALATION (07:14)
[2022-03-18 07:16] LABS: ALB/GLOB Ratio 0.9 RATIO (0.9-2.4); AST(SGOT) 16 U/L (15-37); Alanine Aminotransfer ALT/SGPT 15 U/L (13-56); Alkaline Phosphatase 91 U/L (45-117); Anion Gap 4 (5-15); BUN 7 mg/dL (7-18); BUN/Creat Ratio 11.9 RATIO (10-20); Calcium,Total 7.7 mg/dL (8.5-10.1); Chloride 109 mmol/L (98-107); Creatinine, Serum 0.59 mg/dL (0.55-1.02); EST Glomerular Filtration Rate 109 mL/min (>60); Est Glom Filt Rate - Afr Amer 132 mL/min (>60); Estimated Creatinine Clearance 36.87 ml/min; Globulin 3.4 g/dL (2.2-4.2); Glucose 109 mg/dL (74-106); Potassium 3.8 mmol/L (3.5-5.1); Protein, Total 6.4 g/dL (6.4-8.2); Sodium Level 140 mmol/L (136-145)
--- NOTE | 2022-03-18 08:22 | NURSING ---
Pt c/o SAUNDERS and Nausea. While this RN in room, pt vomited 2 oz of yellow/brown emesis. NG is not to suction as Radiology is doing a Small bowel series. Compazine given. Will monitor.
[2022-03-18] MEDS: 0.9% Normal Saline 1,000 ML 100 ML IV (08:26)
[2022-03-18] MEDS: Famotidine 200 MG/20 ML MDV 20 MG in 0.9% Normal Saline (Pres. free 8 ML 300 MG IV (08:53)
--- NOTE | 2022-03-18 10:17 | NURSING ---
This RN spoke with Dr. Collins, She is aware that pt vomitted 2oz at around 8am this morning. Dr. Collins wants this nurse to pull NG back 13cm, then continue suction for a few minutes and then take NG out and start on Clears.
--- NOTE | 2022-03-18 11:38 | DS.PCM_ITS ---
Providers Date of Admission: 03/17/22 Date of Discharge: 03/18/22 Primary Care Physician: Dr. Rito Chew MD Consultations 03/17/22 23:15 Consult: General Surgery Routine Consulting Provider: Jazz Collins Reason for Consult: SBO EMERGENT Consult: No MD Notified: Yes Date Notified: 03/17/22 Time Notified: 21:28 Method of Notification: Text Reason For Visit: SBO Diagnosis Discharge Diagnosis (1) Partial small bowel obstruction: Status: Acute Code(s): K56.600 - Partial intestinal obstruction, unspecified as to cause Medications at Discharge Home Medications valacyclovir 1 gram tablet 1,000 mg PO DAILY infection 05/09/16 melatonin 10 mg sublingual tablet 10 mg PO QHS sleeping pill 05/20/18 trazodone 100 mg tablet 100 mg PO QHS sleep 05/20/18 ascorbic acid (vitamin C) 500 mg tablet,extended release 1,000 mg PO DAILY supplement 06/26/18 biotin 5,000 mcg sublingual tablet 5,000 mcg sublingual DAILY supplement 02/23/21 cholecalciferol (vitamin D3) 125 mcg (5,000 unit) tablet (Vitamin D3) 125 mcg PO DAILY supplement 02/23/21 omeprazole 40 mg capsule,delayed release 40 mg PO DAILY acid reflux 02/23/21 alendronate 70 mg tablet 70 mg PO QWEEK Osteoporosis 04/27/21 amlodipine 2.5 mg tablet (Norvasc) 5 mg PO DAILY Blood pressure 04/27/21 calcium carbonate 600 mg-vitamin D3 12.5 mcg (500 unit) capsule (Calcium 600 wit h Vitamin D3) 2 cap PO DAILY supplement 04/27/21 cyanocobalamin (vitamin B-12) 2,500 mcg tablet 2,500 mcg PO DAILY supplement 04/27/21 albuterol sulfate 90 mcg/actuation aerosol inhaler (ProAir HFA) 2 puff inhalation Q6H PRN shortness of breath or wheezing #3 ea 12/19/21 budesonide-formoterol HFA 160 mcg-4.5 mcg/actuation aerosol inhaler (Symbicort) 2 puff inhalation BID copd 03/17/22 montelukast 10 mg tablet 10 mg PO QPM breathing 03/17/22 tiotropium bromide 2.5 mcg/actuation mist for inhalation (Spiriva Respimat) 2 puff inhalation QDAY copd 03/17/22 vitamin B12 1 mg-folic acid 0.8 mg tablet 1 tab PO DAILY supplement 03/17/22 Hospital Course Operations None Procedures - (CT of the abdomen pelvis/small bowel follow-through) Summary of Care Provided Minutes Spent on Discharge: 26 Hospital Course: Mrs. Ramirez is a 67-year-old white female who presented to the emergency department as a [facility] on 03/17/2022 complaining of the onset of abdominal cramping at approximately midnight the night prior to presenting with ongoing symptoms since that time. She is dated the pain was diffuse but worse in the upper abdomen and had been waxing and waning with bloating and mild nausea but no emesis. The patient had reported bowel movements and flatus. She reported a history of similar episodes approximately 15 years ago that required an NG tube placement and sounded like per her description that she had small bowel obstruction at that time. Work-up in the ED included T97.3, heart rate 91, BP 165/151, respiratory rate 16, 97% on room air, CBC with WC 11.5, hemoglobin 15.9, platelet 331 with left shift, CMP with glucose 128, lactic acid 0.6, lipase 212 otherwise unremarkable, urinalysis with no obvious evidence of UTI or concerning findings, CT abdomen pelvis with noted dilated small bowel consistent with a low-grade/partial obstruction, heterogeneous uterus possibly fibroids, mild ascites.? In the ED, the patient was administered Zofran, morphine 4 mg IV x2 as well as 1 L normal saline bolus. She was admitted to the general medical floor for further work-up where she was made n.p.o., placed on IV fluids and a General surgery consultation was placed. She indicated to general surgery that her pain had improved and although she was still taking morphine she was using it for her headache but denied flatus or bowel movements. The morning KUB that was ordered showed that previous stool in the small bowel had moved to the right colon but she still had a couple of dilated small bowel loops. Given this history and objective information modified Gastrografin small bowel follow-thro ugh with KUB at 1 and 2 hours was ordered and found to be normal. The patient was therefore started on a diet with clear liquids to advance as able and her NG was removed. The patient tolerated p.o. diet without any issues and she was felt to be safe to discharge home per discussion with general surgery on 03/18/2022. The patient was informed to return if any symptoms returned. No medication changes were made. Discharge diagnoses: Partial small bowel obstruction-resolved Alcohol abuse COPD Hypertension Allergic rhinitis GERD Osteoporosis Anogenital herpes Arnold-Chiari malformation Vitamin D deficiency Allergic rhinitis Insomnia Anxiety Depression Weight / BMI Weight Weight: 42.2 kg Body Mass Index (BMI) 20.1 ABG / Lab / Microbiology Data Result Diagrams: 03/18/22 06:40 03/18/22 06:40 Laboratory: Laboratory Results - last 24 hr 03/17/22 18:03: WBC 11.5 H, RBC 4.68, Hgb 15.9 H, Hct 47.2 H, MCV 100.9 H, MCH 34.0 H, MCHC 33.7, RDW Std Deviation 46.3 H, RDW Coeff of Jordon 12.3, Plt Count 331, MPV 9.0, Immature Gran % (Auto) 0.300, Neut % (Auto) 75.8 H, Lymph % (Auto) 12.9 L, [place] % (Auto) 8.7, Eos % (Auto) 1.7, Baso % (Auto) 0.6, Absolute Neuts (auto) 8.7 H, Absolute Lymphs (auto) 1.49, Nucleated RBC % 0 03/17/22 18:03: Sodium 138, Potassium 3.8, Chloride 104, Carbon Dioxide 28.0, Anion Gap 6, BUN 12, Creatinine 0.74, Estim Creat Clear Calc 37.64, Est GFR (MDRD) Af Amer 101, Est GFR (MDRD) Non-Af 83, BUN/Creatinine Ratio 16.2, Glucose 128 H, Calcium 8.9, Total Bilirubin 0.40, AST 17, ALT 19, Alkaline Phosphatase 101, Total Protein 7.3, Albumin 3.6, Globulin 3.7, Albumin/Globulin Ratio 1.0, Lipase 212 03/17/22 18:03: Lactic Acid 0.6 03/17/22 18:03: Phosphorus 2.9, Magnesium 2.2 03/17/22 19:10: Urine Color Yellow, Urine Clarity Clear, Urine pH 6.0, Ur Specific [place] 1.010, Urine Protein Negative, Urine Glucose (UA) Normal, Urine Ketones 5 H, Urine Occult Blood 25 H, Urine Nitrite Negative, Urine Bilirubin Negative, Urine Urobilinogen Normal, Ur Leukocyte Esterase Negative 03/18/22 06:40: WBC 11.1 H, RBC 4.28, Hgb 14.6, Hct 43.7, MCV 102.1 H, MCH 34.1 H, MCHC 33.4, RDW Std Deviation 47.5 H, RDW Coeff of Jordon 12.5, Plt Count 277, MPV 8.8, Immature Gran % (Auto) 0.300, Neut % (Auto) 75.8 H, Lymph % (Auto) 11.7 L, [place] % (Auto) 10.2 H, Eos % (Auto) 1.5, Baso % (Auto) 0.5, Absolute Neuts (auto) 8.4 H, Absolute Lymphs (auto) 1.30, Nucleated RBC % 0 03/18/22 06:40: Sodium 140, Potassium 3.8, Chloride 109 H, Carbon Dioxide 27.0, Anion Gap 4 L, BUN 7, Creatinine 0.59, Estim Creat Clear Calc 36.87, Est GFR (MDRD) Af Amer 132, Est GFR (MDRD) Non-Af 109, BUN/Creatinine Ratio 11.9, Gluco se 109 H, Calcium 7.7 L, Total Bilirubin 0.40, AST 16, ALT 15, Alkaline Phosphatase 91, Total Protein 6.4, Albumin 3.0 L, Globulin 3.4, Albumin/Globulin Ratio 0.9 Radiography Diagnostic Testing: Radiology Impression Abdomen/Pelvis CT 03/17/22 17:51 IMPRESSION: 1. Dilated small bowel consistent with low grade/partial obstruction. 2. Heterogeneous uterus, possible fibroids. 3. Mild ascites. Electronically Signed: Fannie Flannery MD at 21:08 EDT Reading Location ID and State: [id number] / Tel , Service support , KUB X-Ray 03/17/22 21:26 IMPRESSION: NG tube tip makes a loop in the stomach, tip is in the body of the stomach Ileus Degenerative bony changes with dextroscoliosis Electronically Signed: Santi Person MD at 22:53 EDT , KUB X-Ray 03/18/22 06:15 IMPRESSION: 1. Stable partial small bowel obstruction or ileus. 2. Advancement of esophagogastric tube with tip now in the proximal duodenum or gastric outflow. Electronically Signed: Gustavo Hernandez MD ([place]) at 8:28 EDT , Small Bowel X-Ray 03/18/22 07:00 IMPRESSION: Bowel contrast extends to the colon at 120 minutes. Electronically Signed: Gustavo Hernandez MD ([place]) at 9:42 EDT , D/C Instructions Discharge Diet: Low fat / Low cholesterol Discharge Activity: Return to Normal Activity Return to work on: 03/19/22 Meaningful Use Info Meaningful Use Diagnoses (Choose all that apply): None applicable Discharge Plan Admission Admit Date/Time: 03/17/22 21:27 Primary Reason for Your Visit: Abdominal pain Attending Provider: Kami Randall Primary Care Provider: Rito Chew Consulting Providers: Jazz Collins ; Rita Foster Discharge Orders/Prescriptions Prescriptions: Continued alendronate 70 mg tablet 70 mg PO QWEEK calcium carbonate-vitamin D3 [Calcium 600 with Vitamin D3] 600 mg(1,500mg) - 500 unit capsule 2 cap PO DAILY cyanocobalamin (vitamin B-12) 2,500 mcg tablet 2,500 mcg PO DAILY amlodipine [Norvasc] 2.5 mg tablet 5 mg PO DAILY valacyclovir 1,000 MG tablet 1,000 mg PO DAILY trazodone 100 MG tablet 100 mg PO QHS melatonin 10 MG tablet 10 mg PO QHS ascorbic acid (vitamin C) 500 MG tablet extended release 1,000 mg PO DAILY omeprazole 40 mg Capsule,Delayed Release(Dr/Ec) 40 mg PO DAILY cholecalciferol (vitamin D3) [Vitamin D3] 125 mcg (5,000 unit) Tablet 125 mcg PO DAILY biotin 5,000 mcg Tablet, Sublingual 5,000 mcg SUBLINGUAL DAILY vitamin J43-omsps acid 1-0.8 mg Tablet 1 tab PO DAILY budesonide-formoterol [Symbicort] 160-4.5 mcg/actuation HFA aerosol inhaler 2 puff INHALATION BID Rx Instructions: administer with spacer, rinse mouth after each use montelukast 10 mg tablet 10 mg PO QPM Spiriva Respimat 2.5 mcg/actuation mist 2 puff INHALATION QDAY Rx Instructions: administer at approximately the same time(s) each day albuterol sulfate [ProAir HFA] 90 mcg/actuation HFA aerosol inhaler 2 puff INHALATION Q6H PRN (Reason: shortness of breath or wheezing) Qty: 3 3RF Referrals / Follow Up: Rito Chew MD [Primary Care Provider] - Within 2 Weeks Disposition Disposition (needs filled in before D/C Order can be placed): Home, Self Care Charges/Coding Visit Charges Inpatient E&M: 84307 Disch Hosp
[2022-03-18] MEDS: Albuterol 2.5 MG/3 ML VIAL.NEB. INHALATION (13:37)
--- NOTE | 2022-03-18 16:20 | NURSING ---
Dr. Collins and Dr. Issa Randall is aware that pt has had [address] episodes [address] Randall and Dr. Collins both okay for pt to go home still.
== END 2022-03-18 16:30 | disposition home or self-care (01) | DRG 388 ==
LOC: ED 21:30 → MS3 03-18 06:51
PROVIDERS: Admitting Provider Family Medicine; Emergency Provider Emergency Medicine; PCP Family Medicine; Visit Provider Internal Medicine
DX: K56.600 Partial intestinal obstruction, unspecified as to cause (principal); G93.5 Compression of brain; J43.9 Emphysema, unspecified; F10.10 Alcohol abuse, uncomplicated; I10 Essential (primary) hypertension; K21.9 Gastro-esophageal reflux disease without esophagitis; F41.9 Anxiety disorder, unspecified; E55.9 Vitamin D deficiency, unspecified; E04.1 Nontoxic single thyroid nodule; Z86.16 Personal history of COVID-19; G47.00 Insomnia, unspecified; A60.9 Anogenital herpesviral infection, unspecified; Z87.891 Personal history of nicotine dependence; Z79.83 Long term (current) use of bisphosphonates; F32.A Depression, unspecified; Z79.51 Long term (current) use of inhaled steroids; Z79.899 Other long term (current) drug therapy; M81.0 Age-related osteoporosis without current pathological fracture; N30.10 Interstitial cystitis (chronic) without hematuria
CPT/HCPCS: 74018; 74177; 74250; 80053; 81002; 83605; 83690; 83735; 84100; 85025; 93005; 94640; 96361; 96374; 96375; 96376; 99221; 99251; 99252; 99285; J7030; Q9967; A4216; G0378; G0463; J2405; J3490

== ENCOUNTER → 2022-05-16 | Outpatient (CLI) | payer MEDICARE, SELFPAY ==
--- NOTE | 2022-05-16 12:52 | CT_ITS ---
STUDY: LOW DOSE CT LUNG CANCER SCREENING REASON FOR EXAM: Female, 67 years old. Smoker and gt; 30 pack years quit 2015 RADIATION DOSAGE (If Supplied By Facility): CTDIvol = ( 1.46 ) mGy, DLP = ( 45.11 ) mGycm TECHNIQUE: No contrast was administered. Low dose technique was utilized (average mAS-38 and kVp 120). 1.25 mm axial source images with a slice interval of 1.25-mm were reconstructed in lung windows. 2.5 mm axial source images with a slice interval of 2.5-mm were reconstructed in lung windows. 5.0 mm axial source images with a slice interval of 5.0-mm were reconstructed in soft tissue windows. COMPARISON: Comparison is made with prior study 05/27/2021. NODULES: Stable 8.2 mm nodule in the anterior medial aspect of the right upper lobe adjacent to the apex. This most likely represents scarring. Stable 7 mm reticular nodular density in the left upper lobe as seen on axial image #52. Emphysema: Hyperinflation. Emphysematous changes. This is more prominent in the upper lobes with a centrilobular changes. Endobronchial lesion: None Aorta: Minimal atherosclerotic plaque of the aortic arch. CORONARY ARTERIES: Coronary artery calcification is seen. Heart: Unremarkable Pulmonary artery: Unremarkable Mediastinal nodes: Unremarkable Other chest and abdominal findings: CT/Low Dose CT Lung Screening IMPRESSION: Lung-RADS category 2 - Continue annual screening with LDCT in 12 months. IMPORTANT NOTES FOR USE: ACR Lung-RADS Version 1.1 Assessment Categories Release Date: 2018 Category: Coded 0-4 bases on nodule(s) with highest degree of suspicion. Negative screen is defined as categories 1 and 2; a positive screen is defined as categories 3 and 4. Category 3 and 4A nodules that are unchanged on interval CT should be coded as category 2, and individuals returned to screening in 12 months. Category 4X: Category 3 or 4 nodules with additional imaging findings that increase the suspicion of lung cancer, such as spiculation, GGN that doubles in size in 1 year, enlarged lymph notes, etc. Category Modifiers: S (significant finding unrelated to lung cancer) Electronically Signed: Fernando Gomez MD at 13:33 EDT ,
== END | disposition home or self-care (01) ==
LOC: CT 12:47
PROVIDERS: PCP Family Medicine; Referring Provider Nurse Practitioner Acute Care; Visit Provider Nurse Practitioner Acute Care
DX: Z87.891 Personal history of nicotine dependence (principal); J44.9 Chronic obstructive pulmonary disease, unspecified
CPT/HCPCS: 71271

== ENCOUNTER 2023-02-12 21:55 | Emergency (ER) | payer MEDICARE, SELFPAY ==
[2023-02-12 21:58] VITALS: BP 148/93; PULSE 120; RESP 16; TEMP 36.3; O2SAT 92; BMI 20.9
--- NOTE | 2023-02-12 22:19 | EDS_ITS ---
HPI History of Present Illness Chief Complaint: Anxiety Informant: patient Onset/Context/Timing Onset: Today Context: Sudden Onset Timing: Continuous Quality: Strange and cannot focus Location: Generalized Worsened by: CBD gummy Relieved by: Nothing Narrative Narrative: Patient presents with anxiety that began tonight. Patient states she took a CBD gummy around 8 PM tonight. Patient states she started feeling anxious and strange approximately 1 hour after that. Patient states she is having trouble focusing. Patient states her mouth feels very dry. Patient denies any chest pain. Patient denies any nausea or vomiting. Patient does admit to a mild headache. Patient denies any fevers or chills. Patient denies any recent illnesses. Patient states she was having trouble sleeping which is why she took a CBD gummy. [facility] Medical History Alcohol abuse Anxiety associated with depression Arnold-Chiari deformity Asthma Benign essential HTN Cervicalgia Chronic interstitial cystitis Chronic pain disorder Climacteric COPD (chronic obstructive pulmonary disease) COPD, moderate COVID-19 RODRIGUEZ (dyspnea on exertion) Emphysema of lung Esophageal obstruction due to food impaction Former smoker Generalized hyperhidrosis HSV (herpes simplex virus) anogenital infection Hypertension Lumbar spinal stenosis Lung mass Osteoporosis Overactive bladder Partial small bowel obstruction Peripheral neuropathy Postmenopausal atrophic vaginitis Recurrent manic disorder Sleep-related breathing disorder Stage 2 moderate COPD by GOLD classification Uterine fibroid Home Medications melatonin 10 mg sublingual tablet 10 mg PO QHS sleeping pill 05/20/18 [History Last Taken 03/16/22 21:00] trazodone 100 mg tablet 100 mg PO QHS sleep 05/20/18 [History Last Taken 03/16/22 21:00] ascorbic acid (vitamin C) 500 mg tablet,extended release 1,000 mg PO DAILY supplement 06/26/18 [History Last Taken 03/16/22 09:00] biotin 5,000 mcg sublingual tablet 5,000 mcg sublingual DAILY supplement 02/23/21 [History Last Taken 03/16/22 09:00] cholecalciferol (vitamin D3) 125 mcg (5,000 unit) tablet (Vitamin D3) 125 mcg PO DAILY supplement 02/23/21 [History Last Taken 03/16/22 09:00] omeprazole 40 mg capsule,delayed release 40 mg PO DAILY acid reflux 02/23/21 [History Last Taken 03/16/22 06:00] alendronate 70 mg tablet 70 mg PO QWEEK Osteoporosis 04/27/21 [History Last Taken 03/12/22 09:00] amlodipine 2.5 mg tablet (Norvasc) 5 mg PO DAILY Blood pressure 04/27/21 [History Last Taken 03/16/22 09:00] calcium carbonate 600 mg-vitamin D3 12.5 mcg (500 unit) capsule (Calcium 600 with Vitamin D3) 2 cap PO DAILY supplement 04/27/21 [History Last Taken 03/16/22 09:00] cyanocobalamin (vitamin B-12) 2,500 mcg tablet 2,500 mcg PO DAILY supplement 04/27/21 [History Last Taken 03/16/22 09:00] tiotropium bromide 2.5 mcg/actuation mist for inhalation (Spiriva Respimat) 2 puff inhalation QDAY copd 03/17/22 [History Last Taken 03/17/22 09:00] vitamin B12 1 mg-folic acid 0.8 mg tablet 1 tab PO DAILY supplement 03/17/22 [History Last Taken Unknown] acyclovir 400 mg tablet 400 mg PO BID 04/16/22 [History Last Taken Unknown] prednisone 10 mg tablet 10 mg PO QDAY #30 tabs 07/05/22 [Rx Last Taken Unknown] albuterol sulfate 90 mcg/actuation aerosol inhaler (ProAir HFA) 2 puff inhalation Q6H PRN shortness of breath or wheezing #3 ea 08/29/22 [Rx Last Taken Unknown] budesonide-formoterol HFA 160 mcg-4.5 mcg/actuation aerosol inhaler (Symbicort) 2 puff inhalation BID copd #3 ea 08/29/22 [Rx Last Taken Unknown] montelukast 10 mg tablet 10 mg PO QPM breathing #90 tabs 02/04/23 [Rx Last Taken Unknown] Allergy/AdvReac Type Severity Reaction Status Date / Time Fish Containing Products Allergy Severe Angioedema Verified 02/12/23 22:03 shellfish derived Allergy Severe Angioedema Verified 02/12/23 22:03 Horse/Equine Containing Allergy Unknown NEEDS Verified 02/12/23 22:03 Products FOLLOW-UP lisinopril Allergy Unknown Unknown Verified 02/12/23 22:03 Family History Father Hypertension Aortic aneurysm Cancer skin and bladder Mother Brain aneurysm Surgical History H/O eye surgery H/O Spinal surgery History of bilateral tubal ligation S/P craniotomy Social History household members: none Smoking Status: Former smoker quit date: 09/02/10 pack-years: 57 second hand exposure: No alcohol intake: current alcohol intake frequency: 3 or more drinks per day Alcohol type: beer details: Drinks 5-6 beers daily, nearly no breaks in her days of intake. substance use type: does not use caffeine: Yes what type of physical activity do you participate in: none ROS ROS ED Constitutional Constitutional ED: Denies chills or fever(s) Eyes Eyes: Denies blurry vision or change in vision ENT ENT ED: Denies rhinorrhea or sore throat Cardiovascular Cardiovascular: Denies chest pain or palpitations Respiratory/Chest Respiratory/Chest: Reports dyspnea; Denies cough Gastrointestinal Gastrointestinal: Denies nausea or vomiting Genitourinary Genitourinary ED: Reports urinary frequency; Denies dysuria or hematuria Musculoskeletal Musculoskeletal: Denies back pain or neck pain Integumentary Denies abscess or rash Neurologic Neurologic: Reports headache(s); Denies weakness Psychiatric Psychiatric: Reports anxiety Allergic/Immunologic Allergic/Immunologic ED: Denies mouth swelling or urticaria EXAM Physical Exam Const Vital Signs: 02/12/23 21:58 Temperature 97.3 F L Temperature Source Temporal Pulse Rate 120 H Respiratory Rate 16 Blood Pressure 148/93 H Blood Pressure Mean 111 Pulse Ox 92 Oxygen Delivery Method Room Air Positive well nourished and well developed General Appearance ED: well developed HEENT Reports moist mucous membranes Neck supple and no JVD Resp normal respiratory effort and clear to auscultation bilaterally Cardio regular rhythm Rate: tachycardic GI normal to inspection, nondistended, normoactive bowel sounds and non-tender Palpation: soft Extremity normal to inspection General Extremety ED: Negative for edema or tenderness General Extremity: Negative for edema Neuro oriented x3, CN's II-XII intact bilaterally and no sensory deficits noted Sensorium / Orientation: alert Motor Exam: strength 5/5 throughout Psych mental status grossly normal Skin no rashes or lesions noted MDM MDM MDM Narrative Medical decision making narrative: Differential diagnosis includes cannabis intoxication, electrolyte abnormality, dehydration, and anemia. CBC will be obtained to assess for anemia and leukocytosis. Basic metabolic profile will be obtained to assess for electrolyte abnormality and renal function. Urinalysis will be obtained to assess for urinary tract infection and dehydration. Lab Data Attestation: I reviewed the patient's lab results. Lab results narrative: CBC was reviewed and was within normal limits. Basic metabolic profile was reviewed and was essentially within normal limits. Urinalysis was reviewed. There is no evidence of urinary tract infection or hematuria. Labs: Laboratory Results - last 24 hr 02/12/23 02/12/23 02/12/23 22:33 22:33 23:05 WBC 9.1 RBC 4.27 Hgb 14.3 Hct 42.2 MCV 98.8 MCH 33.5 H MCHC 33.9 RDW Std Deviation 43.2 RDW Coeff of Jordon 11.9 Plt Count 321 MPV 8.7 Immature Gran % (Auto) 0.400 Neut % (Auto) 66.1 Lymph % (Auto) 17.0 L [place] % (Auto) 14.0 H Eos % (Auto) 1.9 Baso % (Auto) 0.6 Absolute Neuts (auto) 6.0 Absolute Lymphs (auto) 1.54 Nucleated RBC % 0 Sodium 133 L Potassium 3.5 Chloride 97 L Carbon Dioxide 28.0 Anion Gap 8 BUN 6 L Creatinine 0.49 L Estim Creat Clear Calc 38.35 Est GFR (MDRD) Af Amer 162 Est GFR (MDRD) Non-Af 134 BUN/Creatinine Ratio 12.3 Glucose 102 Calcium 9.1 Urine Color Yellow Urine Clarity Clear Urine pH 7.0 Ur Specific [place] 1.010 Urine Protein 15 H Urine Glucose (UA) Normal Urine Ketones Negative Urine Occult Blood 25 H Urine Nitrite Negative Urine Bilirubin Negative Urine Urobilinogen Normal Ur Leukocyte Esterase 25 H Urine RBC 0 SEEN Urine WBC 0 SEEN Ur Squamous Epith Cells 0 SEEN Urine Bacteria 0 SEEN Urine Mucus 0 SEEN Treatment and Re-Evaluation :: Patient was given IV fluids. Patient was also given a dose of hydroxyzine. Patient was given a dose of Tylenol. Patient is still somewhat tachycardic on examination. This is likely due to the CBD gummy and anxiety that is a result of that. Patient states she still feels somewhat anxious on reevaluation. Patient was advised of her findings. Patient was advised that it is most likely from the CBD gummy. Patient was instructed to drink plenty of fluids. Patient was instructed to follow-up with her primary care physician in 5 to 7 days. Patient understood and was agreeable with the plan. All questions were answered. Discharge Plan Triage Chief Complaint: Anxiety ED Provider: Raymundo Mercado Dx/Rx/DC Orders Clinical Impression: Use of cannabinoid edibles, Anxiety Instructions: ED Anxiety Reaction Prescriptions: No Action alendronate 70 mg tablet 70 mg PO QWEEK calcium carbonate-vitamin D3 [Calcium 600 with Vitamin D3] 600 mg(1,500mg) - 500 unit capsule 2 cap PO DAILY cyanocobalamin (vitamin B-12) 2,500 mcg tablet 2,500 mcg PO DAILY amlodipine [Norvasc] 2.5 mg tablet 5 mg PO DAILY acyclovir 400 mg tablet 400 mg PO BID trazodone 100 MG tablet 100 mg PO QHS melatonin 10 MG tablet 10 mg PO QHS ascorbic acid (vitamin C) 500 MG tablet extended release 1,000 mg PO DAILY omeprazole 40 mg Capsule,Delayed Release(Dr/Ec) 40 mg PO DAILY cholecalciferol (vitamin D3) [Vitamin D3] 125 mcg (5,000 unit) Tablet 125 mcg PO DAILY biotin 5,000 mcg Tablet, Sublingual 5,000 mcg SUBLINGUAL DAILY vitamin [id number] acid 1-0.8 mg Tablet 1 tab PO DAILY Spiriva Respimat 2.5 mcg/actuation mist 2 puff INHALATION QDAY Rx Instructions: administer at approximately the same time(s) each day prednisone 10 mg tablet 10 mg PO QDAY Qty: 30 0RF Rx Instructions: take 4 tabs for three days, then 3 tabs for three days, then 2 tabs for three days, then 1 tab for 3 days albuterol sulfate [ProAir HFA] 90 mcg/actuation HFA aerosol inhaler 2 puff INHALATION Q6H PRN (Reason: shortness of breath or wheezing) Qty: 3 3RF budesonide-formoterol [Symbicort] 160-4.5 mcg/actuation HFA aerosol inhaler 2 puff INHALATION BID Qty: 3 3RF Rx Instructions: administer with spacer, rinse mouth after each use montelukast 10 mg tablet 10 mg PO QPM Qty: 90 3RF Primary Care Provider: Rito Chew Referrals: Rito Chew MD [Primary Care Provider] - 3-5 Days Activity Restrictions/Additional Instructions: Your symptoms are most likely from the CBD gummy. Do not take any more of these. Drink plenty of fluids. Follow-up with your primary care physician. Disposition Disposition: Home, Self Care
[2023-02-12] MEDS: 0.9% Normal Saline 1,000 ML 1000 ML IV (22:32)
[2023-02-12] MEDS: hydrOXYzine PAM 25 MG Capsule PO (22:36)
[2023-02-12 22:45] LABS: Absolute Lymphocyte Count 1.54 X10^3/uL (0.83-4.51); Basophil# 0.05 X10^3/uL; Basophil% 0.6 % (0-1); Eosinophil# 0.17 X10^3/uL; Eosinophils% 1.9 % (0-5); Hematocrit 42.2 % (37-47); Hemoglobin 14.3 g/dL (12.0-15.0); Lymphocyte # 1.54 X10^3/ul (0.83-4.51); Mean Corp Hgb Conc 33.9 g/dL (32-36); Mean Corpuscular Hgb 33.5 pg (27.0-32.0); Mean Corpuscular Volume 98.8 fL (81-99); Mean Platelet Vol. 8.7 fl (6.2-12.0); Monocyte# 1.27 X10^3/uL; NRBC Flagged by Analyzer 0 % (0-5); Neutrophil # 5.99 X10^3/uL (2.7-7.7); Neutrophil % 66.1 % (47-70); Platelet Count 321 K/mm3 (150-450); RBC Distribution Width CV 11.9 % (11.6-14.6); RBC Distribution Width SD 43.2 fl (35.1-43.9); Red Blood Count 4.27 M/mm3 (4.2-5.4); White Blood Count 9.1 K/mm3 (4.4-11.0)
[2023-02-12 22:54] LABS: Anion Gap 8 (5-15); BUN 6 mg/dL (7-18); BUN/Creat Ratio 12.3 RATIO (10-20); Calcium,Total 9.1 mg/dL (8.5-10.1); Chloride 97 mmol/L (98-107); Creatinine, Serum 0.49 mg/dL (0.55-1.02); EST Glomerular Filtration Rate 134 mL/min (>60); Est Glom Filt Rate - Afr Amer 162 mL/min (>60); Estimated Creatinine Clearance 38.35 ml/min; Glucose 102 mg/dL (74-106); Potassium 3.5 mmol/L (3.5-5.1); Sodium Level 133 mmol/L (136-145)
[2023-02-12 23:12] LABS: Bacteria 0 SEEN /hpf (None Seen); Mucous, Urine 0 SEEN /hpf (<or=2+); Red Blood Cells-Urine 0 SEEN /hpf (0-5); Squamous Epithelial Cells - UA 0 SEEN /hpf (5-10); White Blood Cells 0 SEEN /hpf (0-5)
[2023-02-12 23:15] LABS: Color, Urine Yellow (Yellow); Glucose, Dipstick Normal (Normal); Ketone-Dipstick Negative (Negative); Leukocyte Esterase-Dipstick 25 /ul (Negative); Nitrite-Dipstick Negative (Negative); Occult Blood-Urine 25 /ul (Negative); Protein-Dipstick 15 mg/dl (Negative); Urine Bilirubin Dipstick Negative (Negative); Urine Clarity Clear (Clear); Urine Urobilinogen Normal (Normal)
[2023-02-13] MEDS: Acetaminophen 500 MG Tablet 1000 MG PO (00:10)
[2023-02-13 00:12] VITALS: BP 148/96
== END 2023-02-13 00:18 | disposition home or self-care (01) ==
PROVIDERS: Emergency Provider Emergency Medicine; PCP Family Medicine; Visit Provider Emergency Medicine
DX: F12.90 Cannabis use, unspecified, uncomplicated (principal); J43.9 Emphysema, unspecified; F41.9 Anxiety disorder, unspecified; R51.9 Headache, unspecified; Z87.891 Personal history of nicotine dependence; I10 Essential (primary) hypertension; R35.0 Frequency of micturition
CPT/HCPCS: 80048; 81001; 85025; 96360; 96361; 99284; J7030; A4216

== ENCOUNTER 2023-05-31 21:49 | Observation (INO) | payer MEDICARE, SELFPAY ==
[2023-05-31 21:50] VITALS: BP 195/115; PULSE 88; RESP 16; TEMP 36.1; O2SAT 97; BMI 19.2
--- NOTE | 2023-05-31 22:01 | CT_ITS ---
We are attempting to reach an attending provider to discuss findings. An addendum with communication details will be sent when the communication is complete. EXAM: CT ABDOMEN AND PELVIS WITHOUT INTRAVENOUS CONTRAST CLINICAL INDICATION: Pain -- low abd pain TECHNIQUE: Helically acquired images were obtained of the abdomen and pelvis without intravenous contrast. This CT exam was performed using one or more of the following dose reduction techniques: automated exposure control, adjustment of the mA and/or kV according to patient size, and/or use of iterative reconstruction technique. COMPARISON: CT abdomen and pelvis, 03/17/2022 FINDINGS: LOWER THORAX: Centrilobular emphysema. Coronary artery calcifications. No cardiomegaly. No significant pericardial effusion. ABDOMEN: LIVER: No significant abnormality. Homogeneous. GALLBLADDER AND BILE DUCTS: No significant abnormality. No calcified gallstones. No gallbladder distention or wall edema. No intra- or extrahepatic biliary ductal dilation. PANCREAS: No significant abnormality. No focal cystic mass. SPLEEN: No significant abnormality. Normal size without focal cystic or solid mass. ADRENALS: No significant abnormality. No nodules. KIDNEYS AND URETERS: No significant abnormality. Normal renal size and position. No hydronephrosis. STOMACH AND BOWEL: Moderate small bowel distention with small bowel feces sign. Colonic stool and gas is present. Colonic diverticulosis without discrete evidence of acute diverticulitis on this noncontrast examination. PELVIS: APPENDIX: No evidence of acute appendicitis. BLADDER: No significant abnormality. REPRODUCTIVE: Normal as visualized. No mass. ABDOMEN and PELVIS: INTRAPERITONEAL SPACE: Mild edema in the left side mesentery and minimal tracking free fluid within the left side of the abdomen. No free air. BONES/JOINTS: Degenerative changes in the spine, pelvis, and hips. Multilevel laminectomy in the spine. No suspicious lytic or blastic abnormality. SOFT TISSUES: No significant abnormality. No discrete abdominal or pelvic wall hernia. VASCULATURE: Atherosclerosis of the aorta and its branch vessels. LYMPH NODES: No significant abnormality. No enlarged lymph nodes. CT/Abdomen/Pelvis without Cont IMPRESSION: 1. Evidence of small bowel obstruction with mesenteric edema and tracking free fluid mostly on the left. A discrete transition point is not visualized. 2. Centrilobular emphysema. 3. Colonic diverticulosis without discrete evidence of acute diverticulitis on this noncontrast examination. Electronically Signed: Dereck Rodrigues DO at 23:36 EDT ,
--- NOTE | 2023-05-31 22:02 | EDS_ITS ---
HPI HPI - GI History of Present Illness Chief Complaint: Abd Pain Informant: patient Narrative Narrative: Patient with waxing and waning lower abdominal pain since 2 PM. Symptoms worsened over the past hour. Nausea due to pain. No vomiting. Had a bowel movement during this that was normal. No abdominal surgeries. No urinary symptoms. States 2 years ago she thinks had similar symptoms ended up with what she describes as an NG tube. There is no surgical intervention during the hospitalization. Prior similar symptoms: Yes PFSH PFSH Medical History Alcohol abuse Anxiety associated with depression Arnold-Chiari deformity Asthma Benign essential HTN Cervicalgia Chronic interstitial cystitis Chronic pain disorder Climacteric COPD (chronic obstructive pulmonary disease) COPD, moderate COVID-19 RODRIGUEZ (dyspnea on exertion) Emphysema of lung Esophageal obstruction due to food impaction Former smoker Generalized hyperhidrosis HSV (herpes simplex virus) anogenital infection Hypertension Lumbar spinal stenosis Lung mass Osteoporosis Overactive bladder Partial small bowel obstruction Peripheral neuropathy Postmenopausal atrophic vaginitis Recurrent manic disorder Sleep-related breathing disorder Stage 2 moderate COPD by GOLD classification Uterine fibroid Vitamin D toxicity Home Medications melatonin 10 mg sublingual tablet 10 mg PO QHS sleeping pill 05/20/18 [History Last Taken 03/16/22 21:00] trazodone 100 mg tablet 100 mg PO QHS sleep 05/20/18 [History Last Taken 03/16/22 21:00] ascorbic acid (vitamin C) 500 mg tablet,extended release 1,000 mg PO DAILY supplement 06/26/18 [History Last Taken 03/16/22 09:00] biotin 5,000 mcg sublingual tablet 5,000 mcg sublingual DAILY supplement 02/23/21 [History Last Taken 03/16/22 09:00] omeprazole 40 mg capsule,delayed release 40 mg PO DAILY acid reflux 02/23/21 [History Last Taken 03/16/22 06:00] amlodipine 2.5 mg tablet (Norvasc) 5 mg PO DAILY Blood pressure 04/27/21 [History Last Taken 03/16/22 09:00] calcium carbonate 600 mg-vitamin D3 12.5 mcg (500 unit) capsule (Calcium 600 with Vitamin D3) 2 cap PO DAILY supplement 04/27/21 [History Last Taken 03/16/22 09:00] cyanocobalamin (vitamin B-12) 2,500 mcg tablet 2,500 mcg PO DAILY supplement 04/27/21 [History Last Taken 03/16/22 09:00] acyclovir 400 mg tablet 400 mg PO BID 04/16/22 [History Last Taken Unknown] albuterol sulfate 90 mcg/actuation aerosol inhaler (ProAir HFA) 2 puff inhalation Q6H PRN shortness of breath or wheezing #3 ea 08/29/22 [Rx Last Taken Unknown] budesonide-formoterol HFA 160 mcg-4.5 mcg/actuation aerosol inhaler (Symbicort) 2 puff inhalation BID copd #3 ea 08/29/22 [Rx Last Taken Unknown] montelukast 10 mg tablet 10 mg PO QPM breathing #90 tabs 02/04/23 [Rx Last Taken Unknown] Prolia 60 mg/mL subcutaneous syringe (denosumab) 60 mg subcut [id number] #1 mL 02/25/23 [Rx Last Taken Unknown] fluticasone propionate 50 mcg/actuation nasal spray,suspension (Flonase Allergy Relief) 2 spray intranasal DAILY 04/17/23 [History Last Taken Unknown] Allergy/AdvReac Type Severity Reaction Status Date / Time Fish Containing Products Allergy Severe Angioedema Verified 05/31/23 21:50 shellfish derived Allergy Severe Angioedema Verified 05/31/23 21:50 Horse/Equine Containing Allergy Unknown NEEDS Verified 05/31/23 21:50 Products FOLLOW-UP lisinopril Allergy Unknown Unknown Verified 05/31/23 21:50 Family History Father Hypertension Aortic aneurysm Cancer skin and bladder Mother Brain aneurysm Surgical History H/O eye surgery H/O Spinal surgery History of bilateral tubal ligation S/P craniotomy Social History household members: none Smoking Status: Former smoker quit date: 09/02/10 pack-years: 57 second hand exposure: No alcohol intake: current alcohol intake frequency: 3 or more drinks per day Alcohol type: beer details: Drinks 5-6 beers daily, nearly no breaks in her days of intake. substance use type: does not use caffeine: Yes what type of physical activity do you participate in: none ROS ROS ED Constitutional Constitutional ED: Denies chills, fever(s) or sweats Eyes Eyes: Denies change in vision ENT ENT ED: Denies dysphagia or sore throat Cardiovascular Cardiovascular: Denies chest pain, leg edema, palpitations or racing heartbeat Respiratory/Chest Respiratory/Chest: Denies cough, dyspnea or dyspnea on exertion Gastrointestinal Gastrointestinal: Reports abdominal pain and nausea; Denies diarrhea or vomiting Genitourinary Genitourinary ED: Denies dysuria, hematuria or urinary frequency Musculoskeletal Musculoskeletal: Denies back pain, extremity pain or neck pain Integumentary Denies rash or wounds Neurologic Neurologic: Denies headache(s), paresthesias or weakness EXAM Physical Exam Const Vital Signs: 05/31/23 21:50 06/01/23 00:33 Temperature 97 F L Temperature Source Temporal Pulse Rate 88 91 Respiratory Rate 16 18 Blood Pressure 195/115 H 150/92 H Blood Pressure Mean 141 111 Pulse Ox 97 92 Oxygen Delivery Method Room Air Positive well nourished and well developed Constitutional Narrative: Nontoxic, uncomfortable General Appearance ED: well developed HEENT Reports moist mucous membranes normocephalic and atraumatic Eyes PERRL, EOMs intact bilaterally and conjunctivae normal General Eye ED: Yes normal appearance of both eyes Neck no lymphadenopathy and supple General: Negative for tenderness Chest Wall Chest: Negative for tenderness Resp normal respiratory effort and normal air movement Effort and Inspection: symmetric chest movement; Negative for respiratory distress Cardio regular rate, regular rhythm and no murmurs Peripheral Pulses: pulses 2+ throughout GI normal to inspection, nondistended, normoactive bowel sounds GI Narrative: Tender suprapubic there is no guarding or rebound. Negative Galindo's McBurney's tenderness. No left lower quadrant tenderness. Palpation: Negative for guarding or rebound tenderness present Back/Spine no CVA tenderness and no thoracic nor lumbar tenderness Extremity normal to inspection General Extremety ED: Negative for edema or tenderness General Extremity: Negative for edema Neuro oriented x3 and no sensory deficits noted Sensorium / Orientation: awake and alert Skin no rashes or lesions noted and no wounds MDM MDM MDM Narrative Medical decision making narrative: Interventions / MDM: Differential diagnosis: Bowel obstruction, abdominal pain Diagnosis considered but do not suspect: Appendicitis however negative on CT scan. Diverticulitis however negative on CT scan. My EKG interpretation: N/A Imaging independently reviewed and interpreted by myself: CT abdomen pelvis: Small bowel obstruction, KUB: NG tube in adequate position External documents reviewed: Previous records reviewed March 2022, work-up in the ED had concerns for partial small bowel obstruction. Abdominal surgeries was only bilateral tubal ligation. She did have NG tube conservatively manage with improvement. Test considered but not ordered:N/A ED course: Patient lower abdominal pain progressing, reports similar symptoms with bowel obstructions. Laboratory studies drawn, morphine Zofran fluids started. CT scan ordered. Labs White count returned at the 0.8 urinary for infection. Creatinine 0.63. Lactic acid normal at 1. CT scan results interpreted myself and discussed with radiology concerns for small bowel obstruction. Normal appendix. No diverticulitis. Pain was controlled with 1 dose of pain medicines. I discussed with covering surgeon Dr. Collins who also managed her last year with her bowel obstruction, she improved with conservative management. She did recommend NG tube and requests admission to medicine for conservative treatment. NG tube tube was placed by nursing, KUB confirms placement. Patient did receive second dose of pain medicine after NG tube placement. I spoke with hospitalist, Dr. Jordan for admission. Re-evaluation: stable Disposition discussed with patient/family/significant other: Patient Case discussed with consulting clinician: General surgery, hospitalist This note was generated with at[employer] dictation software. It may contain incorrect words, spelling, and punctuation that were not noted in checking the note before signing. Lab Data Attestation: I reviewed the patient's lab results. Labs: Laboratory Results - last 24 hr 05/31/23 05/31/23 22:32 22:53 WBC 13.8 H RBC 4.61 Hgb 15.6 H Hct 45.6 MCV 98.9 MCH 33.8 H MCHC 34.2 RDW Std Deviation 44.8 H RDW Coeff of Jordon 12.3 Plt Count 299 MPV 9.4 Immature Gran % (Auto) 0.400 Neut % (Auto) 76.5 H Lymph % (Auto) 13.7 L Yancey % (Auto) 7.4 Eos % (Auto) 1.4 Baso % (Auto) 0.6 Absolute Neuts (auto) 10.6 H Absolute Lymphs (auto) 1.89 Nucleated RBC % 0 Sodium 135 L Potassium 4.1 Chloride 101 Carbon Dioxide 29.0 Anion Gap 5 BUN 12 Creatinine 0.63 Estim Creat Clear Calc 35.96 Est GFR (MDRD) Af Amer 121 Est GFR (MDRD) Non-Af 100 BUN/Creatinine Ratio 19.0 Glucose 101 Lactic Acid 1.0 Calcium 8.9 Urine Color Yellow Urine Clarity Clear Urine pH 7.0 Ur Specific [place] 1.010 Urine Protein Negative Urine Glucose (UA) Normal Urine Ketones Negative Urine Occult Blood 25 H Urine Nitrite Negative Urine Bilirubin Negative Urine Urobilinogen Normal Ur Leukocyte Esterase Negative Urine RBC 0 SEEN Urine WBC 0 SEEN Ur Squamous Epith Cells 0-5 SEEN Urine Bacteria 0 SEEN Urine Mucus 0 SEEN Radiography Diagnostic Testing: Clinical Impression(s) from Imaging Studies Abdomen/Pelvis CT 05/31/23 22:01 IMPRESSION: 1. Evidence of small bowel obstruction with mesenteric edema and tracking free fluid mostly on the left. A discrete transition point is not visualized. 2. Centrilobular emphysema. 3. Colonic diverticulosis without discrete evidence of acute diverticulitis on this noncontrast examination. Electronically Signed: Dereck Rodrigues DO at 23:36 EDT , ADDENDUM: 05/31/23 2346 IMPRESSION: 1. Evidence of small bowel obstruction with mesenteric edema and tracking free fluid mostly on the left. A discrete transition point is not visualized. 2. Centrilobular emphysema. 3. Colonic diverticulosis without discrete evidence of acute diverticulitis on this noncontrast examination. N.B. : The above Results were Read Back by Dereck Rodrigues DO to Tyler Green DO, and understanding confirmed on 05/31/2023 23:39:55 (ET). Electronically Signed: Dereck Rodrigues DO at 23:36 EDT , Discharge Plan Triage Chief Complaint: Abd Pain ED Provider: Tyler Green Dx/Rx/DC Orders Clinical Impression: SBO (small bowel obstruction), Abdominal pain, Nausea Prescriptions: No Action calcium carbonate-vitamin D3 [Calcium 600 with Vitamin D3] 600 mg(1,500mg) - 500 unit capsule 2 cap PO DAILY cyanocobalamin (vitamin B-12) 2,500 mcg tablet 2,500 mcg PO DAILY amlodipine [Norvasc] 2.5 mg tablet 5 mg PO DAILY acyclovir 400 mg tablet 400 mg PO BID fluticasone propionate [Flonase Allergy Relief] 50 mcg/actuation spray,suspension 2 spray intranasal DAILY Rx Instructions: administer into each nostril Prolia 60 mg/mL syringe 60 mg subcut [id number] Qty: 1 1RF trazodone 100 MG tablet 100 mg PO QHS melatonin 10 MG tablet 10 mg PO QHS ascorbic acid (vitamin C) 500 MG tablet extended release 1,000 mg PO DAILY omeprazole 40 mg Capsule,Delayed Release(Dr/Ec) 40 mg PO DAILY biotin 5,000 mcg Tablet, Sublingual 5,000 mcg SUBLINGUAL DAILY albuterol sulfate [ProAir HFA] 90 mcg/actuation HFA aerosol inhaler 2 puff INHALATION Q6H PRN (Reason: shortness of breath or wheezing) Qty: 3 3RF budesonide-formoterol [Symbicort] 160-4.5 mcg/actuation HFA aerosol inhaler 2 puff INHALATION BID Qty: 3 3RF Rx Instructions: administer with spacer, rinse mouth after each use montelukast 10 mg tablet 10 mg PO QPM Qty: 90 3RF Primary Care Provider: Rito Chew Referrals: Rito Chew MD [Primary Care Provider] - Disposition Disposition: Acute Care Hospital [facility]
[2023-05-31] MEDS: Ondansetron 4 MG/2 ML Vial IV (22:29)
[2023-05-31] MEDS: Morphine 4 MG/ML Syringe IV (22:29)
[2023-05-31] MEDS: 0.9% Normal Saline (1000mL) 1,000 ML 125 ML IV (22:34)
[2023-05-31 22:43] LABS: Absolute Lymphocyte Count 1.89 X10^3/uL (0.83-4.51); Absolute Neutrophil Count 10.6 X10^3/uL (2.0-7.7); Basophil# 0.08 X10^3/uL; Basophil% 0.6 % (0-1); Eosinophils% 1.4 % (0-5); Hematocrit 45.6 % (37-47); Hemoglobin 15.6 g/dL (12.0-15.0); Lymphocyte # 1.89 X10^3/ul (0.83-4.51); Lymphocyte % 13.7 % (19-41); Mean Corp Hgb Conc 34.2 g/dL (32-36); Mean Corpuscular Hgb 33.8 pg (27.0-32.0); Mean Corpuscular Volume 98.9 fL (81-99); Mean Platelet Vol. 9.4 fl (6.2-12.0); Monocyte# 1.02 X10^3/uL; Monocyte% 7.4 % (0-10); NRBC Flagged by Analyzer 0 % (0-5); Neutrophil # 10.56 X10^3/uL (2.7-7.7); Neutrophil % 76.5 % (47-70); Platelet Count 299 K/mm3 (150-450); RBC Distribution Width CV 12.3 % (11.6-14.6); RBC Distribution Width SD 44.8 fl (35.1-43.9); Red Blood Count 4.61 M/mm3 (4.2-5.4); White Blood Count 13.8 K/mm3 (4.4-11.0)
[2023-05-31 22:53] LABS: Anion Gap 5 (5-15); BUN 12 mg/dL (7-18); Calcium,Total 8.9 mg/dL (8.5-10.1); Chloride 101 mmol/L (98-107); Creatinine, Serum 0.63 mg/dL (0.55-1.02); EST Glomerular Filtration Rate 100 mL/min (>60); Est Glom Filt Rate - Afr Amer 121 mL/min (>60); Estimated Creatinine Clearance 35.96 ml/min; Glucose 101 mg/dL (74-106); Potassium 4.1 mmol/L (3.5-5.1); Sodium Level 135 mmol/L (136-145)
[2023-05-31 22:58] LABS: Bacteria 0 SEEN /hpf (None Seen); Mucous, Urine 0 SEEN /hpf (<or=2+); Red Blood Cells-Urine 0 SEEN /hpf (0-5); White Blood Cells 0 SEEN /hpf (0-5)
[2023-05-31 23:02] LABS: Color, Urine Yellow (Yellow); Glucose, Dipstick Normal (Normal); Ketone-Dipstick Negative (Negative); Leukocyte Esterase-Dipstick Negative /ul (Negative); Nitrite-Dipstick Negative (Negative); Occult Blood-Urine 25 /ul (Negative); Protein-Dipstick Negative (Negative); Urine Bilirubin Dipstick Negative (Negative); Urine Clarity Clear (Clear); Urine Urobilinogen Normal (Normal)
[2023-05-31 23:27] LABS: Squamous Epithelial Cells - UA 0-5 SEEN /hpf (5-10)
[2023-06-01] VITALS (7 sets, daily range): BP systolic 133–163; BP diastolic 86–104; PULSE 84–106; RESP 16–18; TEMP 36.3–37.2; O2SAT 92–94; BMI 19.2
--- NOTE | 2023-06-01 00:05 | RAD_ITS ---
EXAM: XR ABDOMEN, 1 VIEW CLINICAL INDICATION: NG Insertion TECHNIQUE: Frontal supine view of the abdomen/pelvis. COMPARISON: No relevant prior studies available. FINDINGS: LOWER THORAX: No acute pathology. GASTROINTESTINAL TRACT: Unremarkable. Non-obstructive. No bowel or stomach distention. ORGANS: Unremarkable as visualized. No organomegaly. No abnormal calcifications. BONES/JOINTS: No acute pathology. SOFT TISSUES: No acute pathology. TUBES, LINES AND DEVICES: Enteric tube with tip in the body of the stomach. RAD/Abdomen Single View (Portable) IMPRESSION: Enteric tube with tip in the body of the stomach. Electronically Signed: Jeancarlos Kearns MD at 0:55 EDT ,
[2023-06-01] MEDS: Morphine 4 MG/ML Syringe IV (00:26)
--- NOTE | 2023-06-01 00:52 | PCM.HP.STD ---
[facility] - General General Date of Admission: 06/01/23 Date of Service: 06/01/23 Chief Complaint: Abdominal pain HPI Narrative JEYSON MARTINEZ, is a 68 F with a significant history of COPD, asthma, alcohol abuse, tubal ligation and small bowel obstruction presents emergency department with excruciating lower abdominal pain that started about 8 hours before presentation. Initially her pain would ease up and then return . However with time her pain became persistent. She describes her pain as aching and cramping. She denies any aggravating or ameliorating factors to the pain. Earlier on before her pain started her bowels moved and even after her pain started her bowels moved again. She reports some nausea and vomiting. At the emergency department patient was found to have small bowel obstruction. ED doctor discussed with general surgeon who recommend that an NG tube be placed in anticipation that with the NG tube patient's room obstruction will be resolved as it did a year ago when an NG tube was placed. [facility] Medical History Alcohol abuse Anxiety associated with depression Arnold-Chiari deformity Asthma Benign essential HTN Cervicalgia Chronic interstitial cystitis Chronic pain disorder Climacteric COPD (chronic obstructive pulmonary disease) COPD, moderate COVID-19 RODRIGUEZ (dyspnea on exertion) Emphysema of lung Esophageal obstruction due to food impaction Former smoker Generalized hyperhidrosis HSV (herpes simplex virus) anogenital infection Hypertension Lumbar spinal stenosis Lung mass Osteoporosis Overactive bladder Partial small bowel obstruction Peripheral neuropathy Postmenopausal atrophic vaginitis Recurrent manic disorder Sleep-related breathing disorder Stage 2 moderate COPD by GOLD classification Uterine fibroid Vitamin D toxicity Home Medications melatonin 10 mg sublingual tablet 10 mg PO QHS sleeping pill 05/20/18 [History Last Taken 03/16/22 21:00] trazodone 100 mg tablet 100 mg PO QHS sleep 05/20/18 [History Last Taken 03/16/22 21:00] ascorbic acid (vitamin C) 500 mg tablet,extended release 1,000 mg PO DAILY supplement 06/26/18 [History Last Taken 03/16/22 09:00] biotin 5,000 mcg sublingual tablet 5,000 mcg sublingual DAILY supplement 02/23/21 [History Last Taken 03/16/22 09:00] omeprazole 40 mg capsule,delayed release 40 mg PO DAILY acid reflux 02/23/21 [History Last Taken 03/16/22 06:00] amlodipine 2.5 mg tablet (Norvasc) 5 mg PO DAILY Blood pressure 04/27/21 [History Last Taken 03/16/22 09:00] cyanocobalamin (vitamin B-12) 2,500 mcg tablet 2,500 mcg PO DAILY supplement 04/27/21 [History Last Taken 03/16/22 09:00] acyclovir 400 mg tablet 400 mg PO BID female issue 04/16/22 [History Last Taken Unknown] albuterol sulfate 90 mcg/actuation aerosol inhaler (ProAir HFA) 2 puff inhalation Q6H PRN shortness of breath or wheezing #3 ea 08/29/22 [Rx Last Taken Unknown] budesonide-formoterol HFA 160 mcg-4.5 mcg/actuation aerosol inhaler (Symbicort) 2 puff inhalation BID copd #3 ea 08/29/22 [Rx Last Taken Unknown] montelukast 10 mg tablet 10 mg PO QPM breathing #90 tabs 02/04/23 [Rx Last Taken Unknown] fluticasone propionate 50 mcg/actuation nasal spray,suspension (Flonase Allergy Relief) 2 spray intranasal DAILY allergies 04/17/23 [History Last Taken Unknown] calcium carbonate 600 mg calcium (1,500 mg) tablet (Calcium) 600 mg PO DAILY bones 06/01/23 [History Last Taken Unknown] hydroxyzine HCl 10 mg tablet 10 mg PO QHS sleep 06/01/23 [History Last Taken Unknown] Allergy/AdvReac Type Severity Reaction Status Date / Time Fish Containing Products Allergy Severe Angioedema Verified 05/31/23 21:50 shellfish derived Allergy Severe Angioedema Verified 05/31/23 21:50 Horse/Equine Containing Allergy Unknown NEEDS Verified 05/31/23 21:50 Products FOLLOW-UP lisinopril Allergy Unknown Unknown Verified 05/31/23 21:50 Family History Father Hypertension Aortic aneurysm Cancer skin and bladder Mother Brain aneurysm Surgical History H/O eye surgery H/O Spinal surgery History of bilateral tubal ligation S/P craniotomy Social History household members: none Smoking Status: Former smoker quit date: 09/02/10 pack-years: 57 second hand exposure: No alcohol intake: current alcohol intake frequency: 3 or more drinks per day Alcohol type: beer details: Drinks 5-6 beers daily, nearly no breaks in her days of intake. substance use type: does not use caffeine: Yes what type of physical activity do you participate in: none ROS ROS Narrative Pertinent positives and pertinent negatives as noted in HPI. All other systems were reviewed and are negative Vital Signs Vital Signs Vital Signs: 05/31/23 21:50 06/01/23 00:33 Temperature 97 F L Temperature Source Temporal Pulse Rate 88 91 Respiratory Rate 16 18 Blood Pressure 195/115 H 150/92 H Blood Pressure Mean 141 111 Pulse Ox 97 92 Oxygen Delivery Method Room Air Weight Weight: 41.73 kg Body Mass Index (BMI) 19.2 Physical Exam Narrative Physical exam: General: Well-nourished, well-developed. Head: Normocephalic, atraumatic, no tenderness Eyes: Vision is grossly intact. EOMI ENT, no trauma, moist mucous membranes, no rhinorrhea Neck: Nontender, No thyromegaly. CVS: Regular rate and rhythm. S1-S2 present. No murmur, gallop or rub. Respiratory : clear to auscultation bilaterally, chest wall nontender Abdomen: Soft, nontender, nondistended, normal bowel sounds, no masses : Deferred Back: Nontender, no CVA tenderness, no midline spinal tenderness, deformities, step-offs Extremities: Nontender full range of motion, no trauma Skin: Normal color, no trauma, abrasions Neuro: Alert, oriented, cranial nerves II through XII grossly intact. Psychiatry: Normal mood. Normal affect. Not depressed. Not anxious. Results Lab / Micro Data 05/31/23 22:32 05/31/23 22:32 Labs: Laboratory Results - last 24 hr 05/31/23 22:32: WBC 13.8 H, RBC 4.61, Hgb 15.6 H, Hct 45.6, MCV 98.9, MCH 33.8 H, MCHC 34.2, RDW Std Deviation 44.8 H, RDW Coeff of Jordon 12.3, Plt Count 299, MPV 9.4, Immature Gran % (Auto) 0.400, Neut % (Auto) 76.5 H, Lymph % (Auto) 13.7 L, [place] % (Auto) 7.4, Eos % (Auto) 1.4, Baso % (Auto) 0.6, Absolute Neuts (auto) 10.6 H, Absolute Lymphs (auto) 1.89, Nucleated RBC % 0, Sodium 135 L, Potassium 4.1, Chloride 101, Carbon Dioxide 29.0, Anion Gap 5, BUN 12, Creatinine 0.63, Estim Creat Clear Calc 35.96, Est GFR (MDRD) Af Amer 121, Est GFR (MDRD) Non-Af 100, BUN/Creatinine Ratio 19.0, Glucose 101, Lactic Acid 1.0, Calcium 8.9 05/31/23 22:53: Urine Color Yellow, Urine Clarity Clear, Urine pH 7.0, Ur Specific [place] 1.010, Urine Protein Negative, Urine Glucose (UA) Normal, Urine Ketones Negative, Urine Occult Blood 25 H, Urine Nitrite Negative, Urine Bilirubin Negative, Urine Urobilinogen Normal, Ur Leukocyte Esterase Negative, Urine RBC 0 SEEN, Urine WBC 0 SEEN, Ur Squamous Epith Cells 0-5 SEEN, Urine Bacteria 0 SEEN, Urine Mucus 0 SEEN Radiology Impression Abdomen/Pelvis CT 05/31/23 22:01 IMPRESSION: 1. Evidence of small bowel obstruction with mesenteric edema and tracking free fluid mostly on the left. A discrete transition point is not visualized. 2. Centrilobular emphysema. 3. Colonic diverticulosis without discrete evidence of acute diverticulitis on this noncontrast examination. Electronically Signed: Dereck Rodrigues DO at 23:36 EDT , ADDENDUM: 05/31/23 9581 IMPRESSION: 1. Evidence of small bowel obstruction with mesenteric edema and tracking free fluid mostly on the left. A discrete transition point is not visualized. 2. Centrilobular emphysema. 3. Colonic diverticulosis without discrete evidence of acute diverticulitis on this noncontrast examination. N.B. : The above Results were Read Back by Dereck Rodrigues DO to Tyler Le, DO, and understanding confirmed on 05/31/2023 23:39:55 (ET). Electronically Signed: Dereck Shaverlizbetmirela at 23:36 EDT , Assessment & Plan Assessment/Plan (1) SBO (small bowel obstruction): (2) Alcoholism: PLAN: Plan Small bowel obstruction Radiologist impression of abdomen/pelvis CT 1. Evidence of small bowel obstruction with mesenteric edema and tracking free fluid mostly on the left. A discrete transition point is not visualized. 2. Centrilobular emphysema. 3. Colonic diverticulosis without discrete evidence of acute diverticulitis on this noncontrast examination. Abdomen/pelvis CT was independently interpreted I agree with the interpretation above. Conservative management with IV fluids, as needed antiemetics, pain control and general surgery consult. Initially patient was placed on morphine as needed she complains of headache and stating that the headache is found morphine. Morphine stopped.. As needed IV Toradol ordered. Alcohol abuse CIWA protocol ordered. Ativan as needed ordered. Patient counseled. DVT prophylaxis: SCDs ordered. Time spent in the patient's overall evaluation,decision-making process, review of diagnostic data, adjustment of management, discussion with other providers, nursing nursing and ancillary staff involved in patient's care documentation, 30 minutes. Charges/Coding Visit Charges Inpatient E&M: 93998 Init Hosp L2
[2023-06-01] MEDS: Ondansetron 4 MG/2 ML Vial IV ×2 (03:07→10:05)
[2023-06-01] MEDS: 0.9% Normal Saline (1000mL) 1,000 ML 100 ML IV ×3 (03:10→22:21)
[2023-06-01] MEDS: Ketorolac 30 MG/ML Syringe 15 MG IV ×2 (04:18→10:05)
[2023-06-01 07:10] LABS: Absolute Lymphocyte Count 0.99 X10^3/uL (0.83-4.51); Absolute Neutrophil Count 9.9 X10^3/uL (2.0-7.7); Basophil# 0.07 X10^3/uL; Basophil% 0.6 % (0-1); Eosinophil# 0.04 X10^3/uL; Eosinophils% 0.3 % (0-5); Hematocrit 46.9 % (37-47); Hemoglobin 15.5 g/dL (12.0-15.0); Lymphocyte # 0.99 X10^3/ul (0.83-4.51); Lymphocyte % 8.4 % (19-41); Mean Corpuscular Hgb 33.3 pg (27.0-32.0); Mean Corpuscular Volume 100.6 fL (81-99); Mean Platelet Vol. 9.1 fl (6.2-12.0); Monocyte# 0.67 X10^3/uL; Monocyte% 5.7 % (0-10); NRBC Flagged by Analyzer 0 % (0-5); Neutrophil # 9.93 X10^3/uL (2.7-7.7); Neutrophil % 84.7 % (47-70); Platelet Count 286 K/mm3 (150-450); RBC Distribution Width CV 12.4 % (11.6-14.6); RBC Distribution Width SD 46.2 fl (35.1-43.9); Red Blood Count 4.66 M/mm3 (4.2-5.4); White Blood Count 11.7 K/mm3 (4.4-11.0)
[2023-06-01 07:35] LABS: Anion Gap 2 (5-15); BUN 10 mg/dL (7-18); BUN/Creat Ratio 20.7 RATIO (10-20); Calcium,Total 8.2 mg/dL (8.5-10.1); Chloride 106 mmol/L (98-107); Creatinine, Serum 0.48 mg/dL (0.55-1.02); EST Glomerular Filtration Rate 136 mL/min (>60); Est Glom Filt Rate - Afr Amer 165 mL/min (>60); Estimated Creatinine Clearance 34.79 ml/min; Glucose 99 mg/dL (74-106); Sodium Level 137 mmol/L (136-145)
--- NOTE | 2023-06-01 07:50 | RAD_ITS ---
STUDY: X-RAY - ABDOMEN/PELVIS REASON FOR EXAM: Female, 68 years old. Abdominal pain, distention TECHNIQUE: Single AP view of the abdomen / pelvis. COMPARISON: Earlier today FINDINGS: Enteric tube tip in the body the stomach There is a moderate amount of colonic fecal material. There is no demonstrated free abdominal air. The visualized liver, spleen and kidneys are grossly normal in size and morphology. Normal soft tissue structures. There are diffuse degenerative changes of the visualized lumbar spine. RAD/Abdomen Single View (Portable) IMPRESSION: No acute findings, retained stool Enteric tube tip in the body of the stomach Electronically Signed: Santi Person MD at 9:05 EDT ,
--- NOTE | 2023-06-01 07:50 | EX.PCM.CON.S ---
Assessment & Plan Assessment/Plan (1) SBO (small bowel obstruction): (2) Abdominal pain: PLAN: Plan We will continue n.p.o./NG. We will plan for modified small bowel follow-through with Gastrografin today. If that is able to get through to the colon?patient's NG would be removed and patient restarted on clears. Patient is aware that if this does not improve there could be a need to do surgery however I do think there is is a lower likelihood as she feels better this morning and resolved pretty quickly last time. Jazz Collins M.D. Pager: [phone] [facility] [address] [place] [address], [facility], [address] [place] [address] Office: [phone] HPI Consult Data Date of Consult: 06/01/23 HPI Narrative Reason for Consultation: SBO HPI Narrative: JEYSON MARTINEZ, is a 68 F who presents to the ER due to abdominal pain starting about 1 to 2 PM today, waxing and waning initially. Patient did have some nausea and vomiting with this. Patient did try taking Pepto-Bismol and some Tums but likely threw that back up. This was similar to her patient's last episode in March 2022 where she was hospitalized for about a day due to small bowel obstruction was able to be treated conservatively and DC'd home after NG. Patient's only abdominal surgery is a tubal ligation. Patient did have 2 normal bowel movements yesterday. Patient states her abdomen feels better this morning NG was placed in the ER had about 200 mostly saliva looking in the canister this morning. CT abdomen pelvis did show some dilated small bowel, some mild small bowel mesenteric edema. Patient white blood cell count admit was 13.8 currently is 11.7. [facility] Medical History Alcohol abuse Anxiety associated with depression Arnold-Chiari deformity Asthma Benign essential HTN Cervicalgia Chronic interstitial cystitis Chronic pain disorder Climacteric COPD (chronic obstructive pulmonary disease) COPD, moderate COVID-19 RODRIGUEZ (dyspnea on exertion) Emphysema of lung Esophageal obstruction due to food impaction Former smoker Generalized hyperhidrosis HSV (herpes simplex virus) anogenital infection Hypertension Lumbar spinal stenosis Lung mass Osteoporosis Overactive bladder Partial small bowel obstruction Peripheral neuropathy Postmenopausal atrophic vaginitis Recurrent manic disorder Sleep-related breathing disorder Stage 2 moderate COPD by GOLD classification Uterine fibroid Vitamin D toxicity Home Medications melatonin 10 mg sublingual tablet 10 mg PO QHS sleeping pill 05/20/18 [History Last Taken 03/16/22 21:00] trazodone 100 mg tablet 100 mg PO QHS sleep 05/20/18 [History Last Taken 03/16/22 21:00] ascorbic acid (vitamin C) 500 mg tablet,extended release 1,000 mg PO DAILY supplement 06/26/18 [History Last Taken 03/16/22 09:00] biotin 5,000 mcg sublingual tablet 5,000 mcg sublingual DAILY supplement 02/23/21 [History Last Taken 03/16/22 09:00] omeprazole 40 mg capsule,delayed release 40 mg PO DAILY acid reflux 02/23/21 [History Last Taken 03/16/22 06:00] amlodipine 2.5 mg tablet (Norvasc) 5 mg PO DAILY Blood pressure 04/27/21 [History Last Taken 03/16/22 09:00] cyanocobalamin (vitamin B-12) 2,500 mcg tablet 2,500 mcg PO DAILY supplement 04/27/21 [History Last Taken 03/16/22 09:00] acyclovir 400 mg tablet 400 mg PO BID female issue 04/16/22 [History Last Taken Unknown] albuterol sulfate 90 mcg/actuation aerosol inhaler (ProAir HFA) 2 puff inhalation Q6H PRN shortness of breath or wheezing #3 ea 08/29/22 [Rx Last Taken Unknown] budesonide-formoterol HFA 160 mcg-4.5 mcg/actuation aerosol inhaler (Symbicort) 2 puff inhalation BID copd #3 ea 08/29/22 [Rx Last Taken Unknown] montelukast 10 mg tablet 10 mg PO QPM breathing #90 tabs 02/04/23 [Rx Last Taken Unknown] fluticasone propionate 50 mcg/actuation nasal spray,suspension (Flonase Allergy Relief) 2 spray intranasal DAILY allergies 04/17/23 [History Last Taken Unknown] calcium carbonate 600 mg calcium (1,500 mg) tablet (Calcium) 600 mg PO DAILY bones 06/01/23 [History Last Taken Unknown] hydroxyzine HCl 10 mg tablet 10 mg PO QHS sleep 06/01/23 [History Last Taken Unknown] Allergy/AdvReac Type Severity Reaction Status Date / Time Fish Containing Products Allergy Severe Angioedema Verified 05/31/23 21:50 shellfish derived Allergy Severe Angioedema Verified 05/31/23 21:50 Horse/Equine Containing Allergy Unknown NEEDS Verified 05/31/23 21:50 Products FOLLOW-UP lisinopril Allergy Unknown Unknown Verified 05/31/23 21:50 Family History Father Hypertension Aortic aneurysm Cancer skin and bladder Mother Brain aneurysm Surgical History H/O eye surgery H/O Spinal surgery History of bilateral tubal ligation S/P craniotomy Social History household members: none Smoking Status: Former smoker quit date: 09/02/10 pack-years: 57 second hand exposure: No alcohol intake: current alcohol intake frequency: 3 or more drinks per day Alcohol type: beer details: Drinks 5-6 beers daily, nearly no breaks in her days of intake. substance use type: does not use caffeine: Yes what type of physical activity do you participate in: none ROS Constitutional Constitutional: Denies fever(s) Eyes Eyes: Denies loss of central vision ENT HEENT: Denies dysphagia Cardiovascular Cardiovascular: Denies chest pain Respiratory/Chest Respiratory/Chest: Denies dyspnea Gastrointestinal Gastrointestinal: Reports abdominal pain, nausea and vomiting; Denies coffee ground emesis, constipation, diarrhea or hematochezia Genitourinary Genitourinary: Denies dysuria Musculoskeletal Musculoskeletal: Denies joint swelling Integumentary Integumentary: Denies rash Neurologic Neurologic: Denies dizziness Psychiatric Psychiatric: Denies anxiety or depression Hematologic/Lymphatic Hematologic/Lymphatic: Denies easy bleeding Physical Exam Const alert, oriented x3 and no apparent distress HEENT normocephalic and head/scalp atraumatic Eyes conjunctivae normal Neck supple Resp normal respiratory effort Cardio regular rate GI soft to palpation; Negative for non-distended Palpation: tender other (Minimal supraumbilical, no peritoneal signs); Negative for guarding Extremity no clubbing, cyanosis or edema Skin no rashes or lesions noted Neuro CN's II-XII intact bilaterally Psych mental status grossly normal Lab / Micro Data 06/01/23 06:26 06/01/23 06:26 Labs: Laboratory Results - last 24 hr 05/31/23 22:32: WBC 13.8 H, RBC 4.61, Hgb 15.6 H, Hct 45.6, MCV 98.9, MCH 33.8 H, MCHC 34.2, RDW Std Deviation 44.8 H, RDW Coeff of Jordon 12.3, Plt Count 299, MPV 9.4, Immature Gran % (Auto) 0.400, Neut % (Auto) 76.5 H, Lymph % (Auto) 13.7 L, [place] % (Auto) 7.4, Eos % (Auto) 1.4, Baso % (Auto) 0.6, Absolute Neuts (auto) 10.6 H, Absolute Lymphs (auto) 1.89, Nucleated RBC % 0, Sodium 135 L, Potassium 4.1, Chloride 101, Carbon Dioxide 29.0, Anion Gap 5, BUN 12, Creatinine 0.63, Estim Creat Clear Calc 35.96, Est GFR (MDRD) Af Amer 121, Est GFR (MDRD) Non-Af 100, BUN/Creatinine Ratio 19.0, Glucose 101, Lactic Acid 1.0, Calcium 8.9 05/31/23 22:53: Urine Color Yellow, Urine Clarity Clear, Urine pH 7.0, Ur Specific [place] 1.010, Urine Protein Negative, Urine Glucose (UA) Normal, Urine Ketones Negative, Urine Occult Blood 25 H, Urine Nitrite Negative, Urine Bilirubin Negative, Urine Urobilinogen Normal, Ur Leukocyte Esterase Negative, Urine RBC 0 SEEN, Urine WBC 0 SEEN, Ur Squamous Epith Cells 0-5 SEEN, Urine Bacteria 0 SEEN, Urine Mucus 0 SEEN 06/01/23 06:26: WBC 11.7 H, RBC 4.66, Hgb 15.5 H, Hct 46.9, MCV 100.6 H, MCH 33.3 H, MCHC 33.0, RDW Std Deviation 46.2 H, RDW Coeff of Jordon 12.4, Plt Count 286, MPV 9.1, Immature Gran % (Auto) 0.300, Neut % (Auto) 84.7 H, Lymph % (Auto) 8.4 L, [place] % (Auto) 5.7, Eos % (Auto) 0.3, Baso % (Auto) 0.6, Absolute Neuts (auto) 9.9 H, Absolute Lymphs (auto) 0.99, Nucleated RBC % 0, Sodium 137, Potassium 4.0, Chloride 106, Carbon Dioxide 29.0, Anion Gap 2 L, BUN 10, Creatinine 0.48 L, Estim Creat Clear Calc 34.79, Est GFR (MDRD) Af Amer 165, Est GFR (MDRD) Non-Af 136, BUN/Creatinine Ratio 20.7 H, Glucose 99, Calcium 8.2 L Radiology Impression Abdomen/Pelvis CT 05/31/23 22:01 IMPRESSION: 1. Evidence of small bowel obstruction with mesenteric edema and tracking free fluid mostly on the left. A discrete transition point is not visualized. 2. Centrilobular emphysema. 3. Colonic diverticulosis without discrete evidence of acute diverticulitis on this noncontrast examination. Electronically Signed: Dereck Rodrigues DO at 23:36 EDT , ADDENDUM: 05/31/23 2346 IMPRESSION: 1. Evidence of small bowel obstruction with mesenteric edema and tracking free fluid mostly on the left. A discrete transition point is not visualized. 2. Centrilobular emphysema. 3. Colonic diverticulosis without discrete evidence of acute diverticulitis on this noncontrast examination. N.B. : The above Results were Read Back by Dereck Rodrigues DO to Tyler Green DO, and understanding confirmed on 05/31/2023 23:39:55 (ET). Electronically Signed: Dereck Rodrigues DO at 23:36 EDT , KUB X-Ray 06/01/23 00:05 IMPRESSION: Enteric tube with tip in the body of the stomach. Electronically Signed: Jeancarlos Kearns MD at 0:55 EDT , Charges/Coding Visit Charges Inpatient E&M: 46500 Init Hosp L3
--- NOTE | 2023-06-01 07:56 | RAD_ITS ---
INDICATION: sbo-gastrografin -- modified- KUB in 1 hr and 3hr, initial just ordere EXAMINATION/TECHNIQUE: Gastrograffin oral contrast was administered orally via NG tube to the patient. Total Fluoroscopic Time: Images: 4 OR COMPARISON: CT Abdomen/Pelvis, May 31 2023 FINDINGS: There is no small bowel obstruction. There is mild dilatation of the ileal small bowel loops suggesting an ileus or resolving small bowel obstruction. Contrast is seen in the colon at 22 hours. The mucosal pattern is unremarkable. RAD/Small Bowel Series Only IMPRESSION: Ileus or resolving small bowel obstruction. Electronically Signed: Dacia Wheat MD at 7:57 EDT ,
--- NOTE | 2023-06-01 08:16 | PCA ---
Living Will and Power of Bank Vault Clerk papers in Echart.
[2023-06-01] MEDS: Pantoprazole Sodium 40 MG in 0.9% Normal Saline (100mL MB+) 100 ML 330 MG IV (10:05)
--- NOTE | 2023-06-01 10:21 | NURSING ---
apparently per IT computer issues with logging in. 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 Jayla FRIEDMAN. Charge nurse aware as now meds will have to be full documented on.
--- NOTE | 2023-06-01 11:40 | CASEMGMT ---
RN CM Face to Face with patient for initial transition planning/care coordination assessment. RN CM introduced self and role at [facility]. Patient lying in bed, alert and oriented. Patient willing to participate in assessment and is able to answer all questions appropriately. Care providers, pharmacy, and demographics verified. Patient wishes to discharge home, denies need for home health at this time. Patient states she has no further needs or concerns at this time. CM to follow for discharge planning needs that may arise. PCP: Naina Specialists: Sj delivery recruiter Preferred Pharmacy: [facility] Insurance: [employer] [facility] Prescription Benefit: yes Living Will/HPOA: yes, Reina Denise Aunt LNOK: step son, aunt Living Arrangements: Patient lives alone in a single story home with 2 steps and railing to enter the home. Patient is independent at home. Transportation: self, friend DME/HHC: Patient has grab bars at home. No previous HHC. Patient has been to [facility] in the past. Patient states she drinks 5-6 beers daily, patient declined resources. Disposition Plan: Patient to discharge home with family support and follow-up plans in place. Emily CAMPOS, RN, CM
[2023-06-01] MEDS: LORazepam 2 MG/ML Syringe IV (12:47)
[2023-06-01] MEDS: Morphine 2 MG/ML Syringe IV (14:32)
[2023-06-02 02:35] VITALS: BP 134/86; PULSE 84; RESP 18; TEMP 37.2; O2SAT 94
[2023-06-02] MEDS: Phenol/Sodium Phenolate 180ML 3 SPRAY MUCOUS MEM (05:29)
[2023-06-02 07:07] LABS: Absolute Lymphocyte Count 1.34 X10^3/uL (0.83-4.51); Absolute Neutrophil Count 7.9 X10^3/uL (2.0-7.7); Basophil# 0.07 X10^3/uL; Basophil% 0.7 % (0-1); Eosinophil# 0.14 X10^3/uL; Eosinophils% 1.3 % (0-5); Hematocrit 43.4 % (37-47); Hemoglobin 14.1 g/dL (12.0-15.0); Lymphocyte # 1.34 X10^3/ul (0.83-4.51); Lymphocyte % 12.6 % (19-41); Mean Corp Hgb Conc 32.5 g/dL (32-36); Mean Corpuscular Hgb 33.4 pg (27.0-32.0); Mean Corpuscular Volume 102.8 fL (81-99); Mean Platelet Vol. 9.4 fl (6.2-12.0); Monocyte# 1.12 X10^3/uL; Monocyte% 10.5 % (0-10); NRBC Flagged by Analyzer 0 % (0-5); Neutrophil # 7.91 X10^3/uL (2.7-7.7); Neutrophil % 74.5 % (47-70); Platelet Count 266 K/mm3 (150-450); RBC Distribution Width CV 12.6 % (11.6-14.6); RBC Distribution Width SD 47.8 fl (35.1-43.9); Red Blood Count 4.22 M/mm3 (4.2-5.4); White Blood Count 10.6 K/mm3 (4.4-11.0)
[2023-06-02 07:31] LABS: Anion Gap 9 (5-15); BUN 16 mg/dL (7-18); BUN/Creat Ratio 27.7 RATIO (10-20); Chloride 110 mmol/L (98-107); Creatinine, Serum 0.58 mg/dL (0.55-1.02); EST Glomerular Filtration Rate 111 mL/min (>60); Est Glom Filt Rate - Afr Amer 134 mL/min (>60); Estimated Creatinine Clearance 34.79 ml/min; Glucose 74 mg/dL (74-106); Potassium 3.6 mmol/L (3.5-5.1); Sodium Level 142 mmol/L (136-145)
[2023-06-02 07:48] VITALS: BP 149/89; PULSE 95; RESP 18; TEMP 36.9; O2SAT 96
[2023-06-02] MEDS: 0.9% Normal Saline (1000mL) 1,000 ML 100 ML IV (07:52)
--- NOTE | 2023-06-02 08:57 | PN.SURG_ITS ---
Subjective Subjective + flatus, denies abd pain, KUB shows contrast in colon but yesterday after 5 hr was still in SB. Objective Data Objective Data Vital Signs: Vital Signs Temp Pulse Resp BP Pulse Ox O2 Del Method 98.5 F 95 18 149/89 H 96 Room Air 06/02/23 07:48 06/02/23 07:48 06/02/23 07:48 06/02/23 07:48 06/02/23 07:48 06/02/23 07:48 Oxygen Delivery Method Room Air Weight: 89 lb 0.01 oz Body Mass Index (BMI) 19.2 Intake & Output: Intake and Output for Last 24 Hours 05/31/23 06/01/23 06/02/23 23:59 23:59 23:59 Intake Total 3140.00 / 3140.00 1011.67 / 1011.67 Output Total 1275 / 1275 400 / 400 Balance 1865.00 / 1865.00 611.67 / 611.67 Medical Nutrition Assessment Dietitian: Malnutrition Criteria Met Start: 06/01/23 11:54 Freq: Status: Active Protocol: Document 06/01/23 11:54 AG (Rec: 06/01/23 11:54 AG [id number]) Nutrition Malnutrition Evidence of Malnutrition Exists Yes Malnutrition (moderate): Chronic Evidenced By Suboptimal Energy Intake ( Moderate),Weight Loss ( Moderate),Physical Changes ( Mild) Clinical Problem Chronic Disease or Condition Related Malnutrition Etiology chronic, moderate malnutrition related to inadequate energy intake w/ decreased appetite Signs/Symptoms as evidenced by unintentional wt loss of 7.8#/8% wt loss x 3 months, mild muscle wasting/ fat loss in upper extremities, orbital, clavicle and acromion areas, estimated PO intake meeting <75% of estimated energy needs > 3 months Status Active Problem Recommendation Dietitian Recommendations/Changes recommend advance diet as tolerated to transitional; ensure w/ medpass when PO diet advanced given evidence of malnutrition Lab / Micro Data 06/02/23 06:25 06/02/23 06:25 Labs: Laboratory Results - last 24 hr 06/02/23 06:25: WBC 10.6, RBC 4.22, Hgb 14.1, Hct 43.4, MCV 102.8 H, MCH 33.4 H, MCHC 32.5, RDW Std Deviation 47.8 H, RDW Coeff of Jordon 12.6, Plt Count 266, MPV 9.4, Immature Gran % (Auto) 0.400, Neut % (Auto) 74.5 H, Lymph % (Auto) 12.6 L, Phillips % (Auto) 10.5 H, Eos % (Auto) 1.3, Baso % (Auto) 0.7, Absolute Neuts (auto) 7.9 H, Absolute Lymphs (auto) 1.34, Nucleated RBC % 0, Sodium 142, Potassium 3.6, Chloride 110 H, Carbon Dioxide 23.0, Anion Gap 9, BUN 16, Creatinine 0.58, Estim Creat Clear Calc 34.79, Est GFR (MDRD) Af Amer 134, Est GFR (MDRD) Non-Af 111, BUN/Creatinine Ratio 27.7 H, Glucose 74, Calcium 8.0 L Radiography Diagnostic Testing: Radiology Impression KUB X-Ray 06/01/23 07:50 IMPRESSION: No acute findings, retained stool Enteric tube tip in the body of the stomach Electronically Signed: Santi Person MD at 9:05 EDT , Small Bowel X-Ray 06/01/23 07:56 IMPRESSION: Ileus or resolving small bowel obstruction. Electronically Signed: Dacia Wheat MD at 7:57 EDT , Physical Exam Const oriented x3 and no apparent distress Resp normal respiratory effort Cardio regular rate GI soft to palpation and non-tender Inspection: Negative for abdominal distention Assessment & Plan Assessment/Plan (1) SBO (small bowel obstruction): (2) Abdominal pain: PLAN: Plan contrast is in colon on this AM, + flatus no BM, will try clears w NG clamped for 3 hrs and check residual/if pt is N; if nauseated w hook back up NG. pt agreeable w plan. Jazz Collins M.D. Pager: [phone] [facility] [address] [place] [address], Outpatient [facility], [address] [place] [address] Office: [phone] Charges/Coding Visit Charges Inpatient E&M: 20334 Subs Hosp L2
--- NOTE | 2023-06-02 08:59 | PCM.PN.HOSP ---
Subjective Subjective Still some abdominal pain, still having NG output Objective Data Objective Data Vital Signs: Vital Signs Temp Pulse Resp BP Pulse Ox O2 Del Method 98.5 F 95 18 149/89 H 96 Room Air 06/02/23 07:48 06/02/23 07:48 06/02/23 07:48 06/02/23 07:48 06/02/23 07:48 06/02/23 07:48 Oxygen Delivery Method Room Air Weight: 89 lb 0.01 oz Body Mass Index (BMI) 19.2 Intake & Output: Intake and Output for Last 24 Hours 06/01/23 06/02/23 06/03/23 03:59 03:59 03:59 Intake Total 3140.00 / 3140.00 981.67 / 981.67 Output Total 1275 / 1275 400 / 400 Balance 1865.00 / 1865.00 581.67 / 581.67 Medical Nutrition Assessment Dietitian: Malnutrition Criteria Met Start: 06/01/23 11:54 Freq: Status: Active Protocol: Document 06/01/23 11:54 AG (Rec: 06/01/23 11:54 [id number]) Nutrition Malnutrition Evidence of Malnutrition Exists Yes Malnutrition (moderate): Chronic Evidenced By Suboptimal Energy Intake ( Moderate),Weight Loss ( Moderate),Physical Changes ( Mild) Clinical Problem Chronic Disease or Condition Related Malnutrition Etiology chronic, moderate malnutrition related to inadequate energy intake w/ decreased appetite Signs/Symptoms as evidenced by unintentional wt loss of 7.8#/8% wt loss x 3 months, mild muscle wasting/ fat loss in upper extremities, orbital, clavicle and acromion areas, estimated PO intake meeting <75% of estimated energy needs > 3 months Status Active Problem Recommendation Dietitian Recommendations/Changes recommend advance diet as tolerated to transitional; ensure w/ medpass when PO diet advanced given evidence of malnutrition Lab / Micro Data 06/02/23 06:25 06/02/23 06:25 Labs: Laboratory Results - last 24 hr 06/02/23 06:25: WBC 10.6, RBC 4.22, Hgb 14.1, Hct 43.4, MCV 102.8 H, MCH 33.4 H, MCHC 32.5, RDW Std Deviation 47.8 H, RDW Coeff of Jordon 12.6, Plt Count 266, MPV 9.4, Immature Gran % (Auto) 0.400, Neut % (Auto) 74.5 H, Lymph % (Auto) 12.6 L, [place] % (Auto) 10.5 H, Eos % (Auto) 1.3, Baso % (Auto) 0.7, Absolute Neuts (auto) 7.9 H, Absolute Lymphs (auto) 1.34, Nucleated RBC % 0, Sodium 142, Potassium 3.6, Chloride 110 H, Carbon Dioxide 23.0, Anion Gap 9, BUN 16, Creatinine 0.58, Estim Creat Clear Calc 34.79, Est GFR (MDRD) Af Amer 134, Est GFR (MDRD) Non-Af 111, BUN/Creatinine Ratio 27.7 H, Glucose 74, Calcium 8.0 L Radiography Diagnostic Testing: Radiology Impression KUB X-Ray 06/01/23 07:50 IMPRESSION: No acute findings, retained stool Enteric tube tip in the body of the stomach Electronically Signed: Santi Person MD at 9:05 EDT , Small Bowel X-Ray 06/01/23 07:56 IMPRESSION: Ileus or resolving small bowel obstruction. Electronically Signed: Dacia Wheat MD at 7:57 EDT , Physical Exam Narrative General: Alert, Oriented x3, Cooperative, No apparent distress HEENT: Atraumatic, PERRLA, EOMI, Normocephalic, NG tube in place Oral: Moist Mucosa Neck: Supple, No JVD Lungs: Diminished, Normal air movement, No rhonchi, No wheeze, No rales Cardiovascular: Regular rate, Regular Rhythm, Normal S1, Normal S2, No murmurs Abdomen: Soft, Non Tender, Non-Distended, No Hepato-splenomegaly Extremities: No edema, Capillary Refill Less than 3 Seconds Skin: No rashes, No breakdown Musculoskeletal: No Tenderness to Palpation of Joints or Extremities Neurological: Cranial nerves II-XII grossly intact, Motor Exam 5/5 strength throughout, Sensory exam intact to light touch and pain Psych/Mental Status: Normal Affect, Appropriate Assessment & Plan Assessment/Plan (1) SBO (small bowel obstruction): (2) Alcoholism: PLAN: Plan 1. Small bowel obstruction ? It appears to be resolving, there is contrast in the colon though she is still having NG output ? Appreciate surgery's assistance with NG management and diet advancement 2. HTN/HLD ? Blood pressures are stable continue to monitor ? Continue with her home medications 3. Anxiety/depression/alcohol abuse ? Continue with the CIWA protocol ? Continue with her home mental health medications 4. GERD ? Stable ? Continue with PPI 5. COPD ? Not in exacerbation ? She can continue with her home inhalers DVT: SCDs Charges/Coding Visit Charges Inpatient E&M: 57665 Subs Hosp L2
[2023-06-02] MEDS: Pantoprazole Sodium 40 MG in 0.9% Normal Saline (100mL MB+) 100 ML 330 MG IV (09:18)
[2023-06-02] MEDS: Fluticasone 0.05% 1 SPRAY NASAL.SRY 2 SPRAY NASAL (11:33)
[2023-06-02] MEDS: amLODIPine 5 MG Tablet PO (11:34)
[2023-06-02] MEDS: Albuterol 2.5 MG/3 ML VIAL.NEB. INHALATION (13:42)
[2023-06-02 13:43] VITALS: PULSE 93; RESP 20; O2SAT 95
[2023-06-02 13:45] VITALS: BP 135/82; PULSE 98; RESP 18; TEMP 36.9; O2SAT 95
--- NOTE | 2023-06-02 15:05 | DCINST_ITS ---
Documented by User: Dr. Mick Pelletier MD 06/03/23 07:04 Discharge Instructions Diet Discharge Diet: Low fat / Low cholesterol Activity Discharge Activity: Return to Normal Activity Dressing / Incision Call your doctor if you observe: Fever of 101 or Higher, Dizziness, Fainting spells, Swelling in the ankles, Chest pain and Increased palpitations (irregular heartbeat) Follow Up Care Test Results: Test results from this visit will be discussed in further detail at your follow- up appointment, if applicable. Discharge Plan Admission Admit Date/Time: 06/01/23 00:34 Attending Provider: Mick Pelletier Primary Care Provider: Rito Chew Consulting Providers: Boby Jordan; Jazz Collins Discharge Orders/Prescriptions Prescriptions: Continued cyanocobalamin (vitamin B-12) 2,500 mcg tablet 2,500 mcg PO DAILY amlodipine [Norvasc] 2.5 mg tablet 5 mg PO DAILY acyclovir 400 mg tablet 400 mg PO BID fluticasone propionate [Flonase Allergy Relief] 50 mcg/actuation spray,suspension 2 spray intranasal DAILY Rx Instructions: administer into each nostril trazodone 100 MG tablet 100 mg PO QHS melatonin 10 MG tablet 10 mg PO QHS ascorbic acid (vitamin C) 500 MG tablet extended release 1,000 mg PO DAILY omeprazole 40 mg Capsule,Delayed Release(Dr/Ec) 40 mg PO DAILY biotin 5,000 mcg Tablet, Sublingual 5,000 mcg SUBLINGUAL DAILY calcium carbonate [Calcium 600] 600 mg calcium (1,500 mg) tablet 600 mg PO DAILY hydroxyzine HCl 10 mg tablet 10 mg PO QHS albuterol sulfate [ProAir HFA] 90 mcg/actuation HFA aerosol inhaler 2 puff INHALATION Q6H PRN (Reason: shortness of breath or wheezing) Qty: 3 3RF budesonide-formoterol [Symbicort] 160-4.5 mcg/actuation HFA aerosol inhaler 2 puff INHALATION BID Qty: 3 3RF Rx Instructions: administer with spacer, rinse mouth after each use montelukast 10 mg tablet 10 mg PO QPM Qty: 90 3RF Referrals / Follow Up: Rito Chew MD [Primary Care Provider] - Within 1 Week Disposition Disposition (needs filled in before D/C Order can be placed): Home, Self Care Documented by User: Dr. Jazz Collins MD 06/02/23 15:12 Discharge Instructions Diet Discharge Diet: - (low fiber x 1 week) Discharge Plan Admission Admit Date/Time: 06/01/23 00:34 Attending Provider: Mick Pelletier Primary Care Provider: Rito Chew Consulting Providers: Boby Jordan; Jazz Collins Discharge Orders/Prescriptions Prescriptions: Continued cyanocobalamin (vitamin B-12) 2,500 mcg tablet 2,500 mcg PO DAILY amlodipine [Norvasc] 2.5 mg tablet 5 mg PO DAILY acyclovir 400 mg tablet 400 mg PO BID fluticasone propionate [Flonase Allergy Relief] 50 mcg/actuation spray,suspension 2 spray intranasal DAILY Rx Instructions: administer into each nostril trazodone 100 MG tablet 100 mg PO QHS melatonin 10 MG tablet 10 mg PO QHS ascorbic acid (vitamin C) 500 MG tablet extended release 1,000 mg PO DAILY omeprazole 40 mg Capsule,Delayed Release(Dr/Ec) 40 mg PO DAILY biotin 5,000 mcg Tablet, Sublingual 5,000 mcg SUBLINGUAL DAILY calcium carbonate [Calcium 600] 600 mg calcium (1,500 mg) tablet 600 mg PO DAILY hydroxyzine HCl 10 mg tablet 10 mg PO QHS albuterol sulfate [ProAir HFA] 90 mcg/actuation HFA aerosol inhaler 2 puff INHALATION Q6H PRN (Reason: shortness of breath or wheezing) Qty: 3 3RF budesonide-formoterol [Symbicort] 160-4.5 mcg/actuation HFA aerosol inhaler 2 puff INHALATION BID Qty: 3 3RF Rx Instructions: administer with spacer, rinse mouth after each use montelukast 10 mg tablet 10 mg PO QPM Qty: 90 3RF Referrals / Follow Up: Rito Chew MD [Primary Care Provider] - Within 1 Week Disposition Disposition (needs filled in before D/C Order can be placed): Home, Self Care
--- NOTE | 2023-06-03 07:04 | PCM.DC.SUM ---
Providers Date of Admission: 06/01/23 Date of Discharge: 06/02/23 Primary Care Physician: Dr. Rito Chew MD Consultations 06/01/23 01:14 Consult: General Surgery Routine Consulting Provider: Jazz Collins Reason for Consult: SBO EMERGENT Consult: No MD Notified: Yes Date Notified: 06/01/23 Time Notified: 07:38 Method of Notification: Text Reason For Visit: SMALL BOWEL OBSTRUCTION Diagnosis Discharge Diagnosis (1) SBO (small bowel obstruction): Status: Acute Code(s): K56.609 - Unspecified intestinal obstruction, unspecified as to partial versus complete obstruction (2) Abdominal pain: Status: Acute Code(s): R10.9 - Unspecified abdominal pain Medications at Discharge Home Medications melatonin 10 mg sublingual tablet 10 mg PO QHS sleeping pill 05/20/18 trazodone 100 mg tablet 100 mg PO QHS sleep 05/20/18 ascorbic acid (vitamin C) 500 mg tablet,extended release 1,000 mg PO DAILY supplement 06/26/18 biotin 5,000 mcg sublingual tablet 5,000 mcg sublingual DAILY supplement 02/23/21 omeprazole 40 mg capsule,delayed release 40 mg PO DAILY acid reflux 02/23/21 amlodipine 2.5 mg tablet (Norvasc) 5 mg PO DAILY Blood pressure 04/27/21 cyanocobalamin (vitamin B-12) 2,500 mcg tablet 2,500 mcg PO DAILY supplement 04/27/21 acyclovir 400 mg tablet 400 mg PO BID female issue 04/16/22 albuterol sulfate 90 mcg/actuation aerosol inhaler (ProAir HFA) 2 puff inhalation Q6H PRN shortness of breath or wheezing #3 ea 08/29/22 budesonide-formoterol HFA 160 mcg-4.5 mcg/actuation aerosol inhaler (Symbicort) 2 puff inhalation BID copd #3 ea 08/29/22 montelukast 10 mg tablet 10 mg PO QPM breathing #90 tabs 02/04/23 fluticasone propionate 50 mcg/actuation nasal spray,suspension (Flonase Allergy Relief) 2 spray intranasal DAILY allergies 04/17/23 calcium carbonate 600 mg calcium (1,500 mg) tablet (Calcium) 600 mg PO DAILY bones 06/01/23 hydroxyzine HCl 10 mg tablet 10 mg PO QHS sleep 06/01/23 Hospital Course Operations None Procedures None Summary of Care Provided Minutes Spent on Discharge: 35 Hospital Course: Per HPI: JEYSON MARTINEZ, is a 68 F with a significant history of COPD, asthma, alcohol abuse, tubal ligation and small bowel obstruction presents emergency department with excruciating lower abdominal pain that started about 8 hours before presentation. Initially her pain would ease up and then return . However with time her pain became persistent. She describes her pain as aching and cramping. She denies any aggravating or ameliorating factors to the pain. Earlier on before her pain started her bowels moved and even after her pain started her bowels moved again. She reports some nausea and vomiting. At the emergency department patient was found to have small bowel obstruction. ED doctor discussed with general surgeon who recommend that an NG tube be placed in anticipation that with the NG tube patient's room obstruction will be resolved as it did a year ago when an NG tube was placed. Hospital Course: 1. Small bowel obstruction?68-year-old female presented to the hospital with lower abdominal pain. An NG tube was placed as it was felt based on CT scan that she had small bowel obstruction. This did improve slowly and we appreciate surgery's assistance. A small bowel follow-through was obtained that did show ultimate passage of contrast into the colon and so surgery initially allowed her to have clears with the NG tube clamped which she tolerated so the NG tube was removed and she ultimately tolerated a diet and was cleared for discharge home by general surgery. The plan for discharge was discussed with her and she expressed understanding of the risk benefits of going home and would like to go home today. I do recommend that she follow-up with her PCP in 3 to 5 days for outpatient monitoring and evaluation. 2. Hypertension, hyperlipidemia, anxiety, depression, alcohol abuse, GERD, COPD all chronic medical conditions which complicate her care. Her home medications were continued where appropriate Weight / BMI Weight Weight: 89 lb 0.01 oz Body Mass Index (BMI) 19.2 ABG / Lab / Microbiology Data 06/02/23 06:25 06/02/23 06:25 Laboratory: Laboratory Results - last 24 hr 06/02/23 06:25: WBC 10.6, RBC 4.22, Hgb 14.1, Hct 43.4, MCV 102.8 H, MCH 33.4 H, MCHC 32.5, RDW Std Deviation 47.8 H, RDW Coeff of Jordon 12.6, Plt Count 266, MPV 9.4, Immature Gran % (Auto) 0.400, Neut % (Auto) 74.5 H, Lymph % (Auto) 12.6 L, [place] % (Auto) 10.5 H, Eos % (Auto) 1.3, Baso % (Auto) 0.7, Absolute Neuts (auto) 7.9 H, Absolute Lymphs (auto) 1.34, Nucleated RBC % 0, Sodium 142, Potassium 3.6, Chloride 110 H, Carbon Dioxide 23.0, Anion Gap 9, BUN 16, Creatinine 0.58, Estim Creat Clear Calc 34.79, Est GFR (MDRD) Af Amer 134, Est GFR (MDRD) Non-Af 111, BUN/Creatinine Ratio 27.7 H, Glucose 74, Calcium 8.0 L Radiography Diagnostic Testing: Radiology Impression Small Bowel X-Ray 06/01/23 07:56 IMPRESSION: Ileus or resolving small bowel obstruction. Electronically Signed: Dacia Wheat MD at 7:57 EDT , D/C Instructions Discharge Diet: Low fat / Low cholesterol and - (low fiber x 1 week) Call your doctor if you observe: Fever of 101 or Higher, Dizziness, Fainting spells, Swelling in the ankles, Chest pain and Increased palpitations (irregular heartbeat) Meaningful Use Info Meaningful Use Diagnoses (Choose all that apply): None applicable Discharge Plan Admission Admit Date/Time: 06/01/23 00:34 Attending Provider: Mick Pelletier Primary Care Provider: Rito Chew Consulting Providers: Boby Jordan; Jazz Collins Discharge Orders/Prescriptions Prescriptions: Continued cyanocobalamin (vitamin B-12) 2,500 mcg tablet 2,500 mcg PO DAILY amlodipine [Norvasc] 2.5 mg tablet 5 mg PO DAILY acyclovir 400 mg tablet 400 mg PO BID fluticasone propionate [Flonase Allergy Relief] 50 mcg/actuation spray,suspension 2 spray intranasal DAILY Rx Instructions: administer into each nostril trazodone 100 MG tablet 100 mg PO QHS melatonin 10 MG tablet 10 mg PO QHS ascorbic acid (vitamin C) 500 MG tablet extended release 1,000 mg PO DAILY omeprazole 40 mg Capsule,Delayed Release(Dr/Ec) 40 mg PO DAILY biotin 5,000 mcg Tablet, Sublingual 5,000 mcg SUBLINGUAL DAILY calcium carbonate [Calcium 600] 600 mg calcium (1,500 mg) tablet 600 mg PO DAILY hydroxyzine HCl 10 mg tablet 10 mg PO QHS albuterol sulfate [ProAir HFA] 90 mcg/actuation HFA aerosol inhaler 2 puff INHALATION Q6H PRN (Reason: shortness of breath or wheezing) Qty: 3 3RF budesonide-formoterol [Symbicort] 160-4.5 mcg/actuation HFA aerosol inhaler 2 puff INHALATION BID Qty: 3 3RF Rx Instructions: administer with spacer, rinse mouth after each use montelukast 10 mg tablet 10 mg PO QPM Qty: 90 3RF Referrals / Follow Up: Rito Chew MD [Primary Care Provider] - Within 1 Week Disposition Disposition (needs filled in before D/C Order can be placed): Home, Self Care Charges/Coding Visit Charges Inpatient E&M: 08715 Disch Hosp >30min
== END 2023-06-02 17:44 | disposition home or self-care (01) | DRG 389 ==
LOC: ED 06-01 00:41 → MS3 06-01 06:54
PROVIDERS: Admitting Provider Hospitalist; Emergency Provider Emergency Medicine; PCP Family Medicine; Visit Provider Family Medicine
DX: K56.609 Unspecified intestinal obstruction, unspecified as to partial versus complete obstruction (principal); E44.0 Moderate protein-calorie malnutrition; J44.9 Chronic obstructive pulmonary disease, unspecified; F10.20 Alcohol dependence, uncomplicated; Z68.1 Body mass index [BMI] 19.9 or less, adult; I10 Essential (primary) hypertension; F32.A Depression, unspecified; E78.5 Hyperlipidemia, unspecified; F41.9 Anxiety disorder, unspecified; Y90.9 Presence of alcohol in blood, level not specified; Z79.51 Long term (current) use of inhaled steroids; Z79.899 Other long term (current) drug therapy; Z86.16 Personal history of COVID-19; Z87.891 Personal history of nicotine dependence
CPT/HCPCS: 36415; 74018; 74176; 74250; 80048; 81001; 83605; 85025; 94640; 96361; 96365; 96366; 96375; 96376; 99221; 99285; J7030; A4216; G0378; J2405

== ENCOUNTER → 2024-01-01 | Outpatient (CLI) | payer MEDICARE, SELFPAY ==
--- NOTE | 2024-01-01 07:58 | CT_ITS ---
STUDY: LOW DOSE CT LUNG CANCER SCREENING REASON FOR EXAM: Female, 68 years old. h/o Tobacco Dependency. Patient smoked 1 pack per day for 42 years. Two-week history of shortness of breath and cough. COPD. RADIATION DOSAGE (If Supplied By Facility): CTDIvol = ( 1.47 ) mGy, DLP = ( 47.88 ) mGycm TECHNIQUE: No contrast was administered. Low dose technique was utilized (average mAS-38 and kVp 120). 1.25 mm axial source images with a slice interval of 1.25-mm were reconstructed in lung windows. 2.5 mm axial source images with a slice interval of 2.5-mm were reconstructed in lung windows. 5.0 mm axial source images with a slice interval of 5.0-mm were reconstructed in soft tissue windows. COMPARISON: Comparison is made with prior study of May 16, 2022. NODULES: No suspicious nodules are seen. Emphysema: Hyperinflation. Diffuse emphysematous changes. Stable scarring in the medial right lung apex. Endobronchial lesion: None Aorta: Mild degree of atherosclerotic calcification of the aortic arch. CORONARY ARTERIES: Coronary artery calcification is seen. Heart: Unremarkable Pulmonary artery: Unremarkable Mediastinal nodes: Small mediastinal lymph nodes. Other chest and abdominal findings: CT/Low Dose CT Lung Screening IMPRESSION: Lung-RADS category 2 - Continue annual screening with LDCT in 12 months. IMPORTANT NOTES FOR USE: ACR Lung-RADS Version 1.1 Assessment Categories Release Date: 2018 Category: Coded 0-4 bases on nodule(s) with highest degree of suspicion. Negative screen is defined as categories 1 and 2; a positive screen is defined as categories 3 and 4. Category 3 and 4A nodules that are unchanged on interval CT should be coded as category 2, and individuals returned to screening in 12 months. Category 4X: Category 3 or 4 nodules with additional imaging findings that increase the suspicion of lung cancer, such as spiculation, GGN that doubles in size in 1 year, enlarged lymph notes, etc. Category Modifiers: S (significant finding unrelated to lung cancer) Electronically Signed: Fernando Gomez MD at 8:52 EDT ,
== END | disposition home or self-care (01) ==
PROVIDERS: PCP Family Medicine; Referring Provider Nurse Practitioner Acute Care; Visit Provider Nurse Practitioner Acute Care
DX: F17.210 Nicotine dependence, cigarettes, uncomplicated (principal)
CPT/HCPCS: 71271

== ENCOUNTER → 2024-07-27 | Outpatient (CLI) | payer MEDICARE, SELFPAY | END | disposition home or self-care (01) | PROVIDERS: PCP Family Medicine; Referring Provider Nurse Practitioner Family; Visit Provider Nurse Practitioner Family | DX: J44.9 Chronic obstructive pulmonary disease, unspecified (principal) | CPT/HCPCS: 94060; 94726; 94729 ==

== ENCOUNTER → 2024-11-24 | Outpatient (CLI) | payer MEDICARE, SELFPAY ==
--- NOTE | 2024-11-24 12:54 | SP.MBSS_ITS ---
Modified Barium Swallow Patient Information Study Date: 11/24/24 Study Time: 12:45 Direct Billable Minutes: 70 Total Minutes procedure & reportin Diagnosis: Dysphagia R13.10 Referring Physician: Rito Chew Reason for Referral: assess swallow function, assess risk for aspiration, and determine recommendations for least restrictive diet textures and compensatory strategies to facilitate safe po intake. Medical History: Patient recently seen at [facility] for outpatient swallowing evaluation 10/20/2024 to address dysphagia. Per bedside swallowing evaluation history, patient reported that she is coughing or choking 2-3 times per week with no pattern on foods, liquid or it can also be on just saliva. She reports about half of those episodes she is able to cough up bits of food. In 2017 and 2018 she had esophageal impactions and went to ER for removal. She has a history of COPD and Asthma also. Patient has not been evaluated by GI since being in ER per her report. The patient was recommended for regular textures / thin liquids w/ aspiration precautions (Reduce Distractions, Small Sips & Bites when Eating, Chew thoroughly). Patient was also recommended for MBSS to further assess swallow function and to determine appropriate dysphagia interventions. Of note, patient has an allergy to products containing fish and shellfish derived allergy. Other history: Vitamin D toxicity, Former smoker, Asthma, COPD , HTN, Partial small bowel obstruction, COVID-19, Emphysema of lung, Benign essential HTN, Lung mass, Climacteric Lumbar spinal stenosis, Peripheral neuropathy, Recurrent manic disorder, Generalized hyperhidrosis, RODRIGUEZ, Anxiety associated with depression, Chronic pain disorder, Sleep-related breathing disorder, Stage 2 moderate COPD by GOLD classification, Esophageal obstruction due to food impaction, Arnold- Chiari deformity, Alcohol abuse, Osteoporosis Current Diet Ordered: Regular / Thin Dentition: Natural Teeth and Missing Teeth (implants, still missing posterior dentition) Mental Status: WNL Respiratory Status: Oxygenating on Room Air Penetration-Aspiration Scale Penetration-Aspiration Scale: OBJECTIVE ASSESSMENT OF SWALLOW FUNCTION (QUANTITATIVE ? PER TRIAL): PENETRATION / ASPIRATION SCALE (PRINGLE): 1 = does not enter airway 2 = enters airway/above vocal folds/ejected 3 = enters airway/above vocal folds/not ejected 4 = enters airway/contacts vocal folds/ejected 5 = enters airway/contacts vocal folds/not ejected 6 = enters airway/below vocal folds/ejected 7 = enters airway/below vocal folds/not ejected despite effort 8 = enters airway/below vocal folds/no effort VIDEOFLOROSCOPIC SCALE SCORE (PRINGLE): Grade I = aspiration of material that has penetrated into the laryngeal vestibule, intact cough reflex Grade II = aspiration < 10 % of the bolus, intact cough reflex Grade III = aspiration of < 10 % of the bolus, reduced cough reflex or aspiration of > 10 % of the bolus, intact cough reflex Grade IV = aspiration of > 10 % of the bolus, reduced cough reflex Penetration-Aspiration Scale Score Thin Liquid via teaspoon: Result: 2= enter airway/above vocal folds/ejected Thin Liquid via teaspoon Trial 2: Result: 1= does not enter airway Thin Liquid via large single sip: cup: Result: 2= enter airway/above vocal folds/ejected Thin Liquid via sequential sips: cup: Result: 2= enter airway/above vocal folds/ejected Comment: Esophageal screen - Complete clearance. Pudding via teaspoon: Result: 1= does not enter airway Comment: Esophageal screen - Retention of portion of pudding bolus throughout middle and lower esophagus. Thin Liquid via single sip: straw: Result: 2= enter airway/above vocal folds/ejected Comment: Esophageal screen - Complete clearance. 1/2 Cookie coated in Barium Pudding: Result: 1= does not enter airway Comment: Esophageal screen - Minimal retention in middle esophagus. Thin Liquid via sequential sips:straw: Result: 2= enter airway/above vocal folds/ejected Comment: Esophageal screen - Complete clearance. Oral Phase Labial Seal: No Labial Escape Tongue Control During Bolus Hold: Posterior escape of greater than half of bolus Bolus Preparation/Mastication: Disorganized chewing/mashing with solid pieces of bolus unchewed (Timely mastication; however, small pieces of cookie appeared un- chewed.) Bolus Transport/Lingual Motion: Delayed initiation of tongue motion Oral Residue: Residue collection on oral structures Pharyngeal Phase Initiation of Pharyngeal Swallow: Bolus head in pyriforms Soft Palate Elevation: Trace column of contrast/air between soft palate and pharyngeal wall Laryngeal Elevation: Comp. Superior move thyroid cart w/comp. apprx arytenoid cart-epig pet Anterior Hyoid Excursion: Complete anterior movement Epiglottic Movement: Complete inversion Laryngeal Vestibule Closure at Height of Swallow: Incomplete; narrow column of air/contrast in laryngeal vestibule (trace laryngeal penetration of liquids w/ complete ejection after the swallow) Pharyngeal Stripping Wave: Present - complete Pharyngoesophageal Segment Opening: Complete distension and complete duration; no obstruction of flow Tongue Base Retraction: Trace column of contrast between tongue base & post. pharyngeal wall Pharyngeal Residue: Trace residue within or on pharyngeal structures Esophageal Phase Esophageal Clearance: Esophageal retention Diagnosis/Impression Diagnosis: Mild oropharyngeal dysphagia R13.12; Mild esophageal dysphagia R13.14 Impression: Mild oral deficits, including... -Loss of liquids to the pyriforms (>1/2 the bolus) prior to swallow onset. -Delayed tongue motion for A-P transport. -Timely mastication; however, small pieces of cookie appeared un-chewed. Mild pharyngeal deficits, including... -Delayed swallow onset. -Consistent, trace laryngeal penetration of liquids w/ complete ejection. No aspiration observed. Esophageal deficits... -Retention of pudding in middle and lower esophagus, which fully cleared w/ thin liquid wash. -Small CP bar at the level of C5-C6, which did not impact bolus clearance through the UES. Recommendations Diet: Regular Textures and Thin Liquids Compensatory Strategies: Small Bites (Chew thoroughly), Small Sips, Slow Rate, Alternate bites/solids and sips/liquids (Take a drink after every 1-2 bites), Sitting upright (During meal and 30-60min after) and Minimize/decrease distractions Recommend Repeat Modified Barium Swallow: No Need for Skilled Speech Therapy Services: Yes Comment: Follow up dysphagia therapy sessions recommended for... -Education re: compensatory strategies to decrease risk for aspiration and reflux aspiration. -Train pt in Freddy to improve mild delay in swallow onset. -GERD education. When this COMMISSARY STEWARD recommended liquid wash between bites, the patient reported she only drinks her beer before or after a meal. COMMISSARY STEWARD recommended water to wash foods during the meal. The patient stated intake of several foods/drinks that will trigger GERD during the study, including burgers, raw onion, and beer. Recommended Referrals: GI Consult (Would recommend getting established w/ GI as an OP due to esophageal retention during MBSS and hx of esophageal impaction.) Education Completed: 1. Described result of evaluation., 2. Pt understands evaluation & agrees with goals and treatment plan. and 7. Pt requires further education on strategies & risks. Status Active ST Patient: Active Contact Information [facility] Speech Therapy:: Krysta Tatum M.A. [facility]? Speech-Language Pathologist?? [facility] [address] [place] [address]? [email or web address]?? [phone]
== END | disposition home or self-care (01) ==
PROVIDERS: PCP Family Medicine; Referring Provider Family Medicine; Visit Provider Family Medicine
DX: R13.19 Other dysphagia (principal)
CPT/HCPCS: 74230; 92611

== ENCOUNTER 2024-11-25 12:00 | Outpatient (RCR) | payer MEDICARE, SELFPAY ==
--- NOTE | 2024-10-20 12:54 | HP.SP.EVAL ---
Visit History Visit Info Date of Eval: 10/20/24 Visit: 1 Food Safety Field Specialist: KENZIE History Attending Doctor: Referring Doctor: Reason for Referral: DYSPHAGIA, RX HERE Medical Diagnosis: Dysphagia Previous speech therapy: No Other Relevant Medical History/Diagnoses/Surgery: Patient reported that she is coughing or choking 2-3 times per week with no pattern on foods, liquid or it can also be on just saliva. She reports about half of those episodes she is able to cough up bits of food. In 2017 and 2018 she had esophageal impactions and went to ER for removal. She has a history of COPD and Asthma also. Patient has not been evaluated by GI since being in ER per her report. Food allergies Fish Containing Products Allergy, shellfish derived Allergy Other history: Vitamin D toxicity, Former smoker, Asthma, COPD (chronic obstructive pulmonary disease), Hypertension, Partial small bowel obstruction, COVID-19, Emphysema of lung, Benign essential HTN, Lung mass, Climacteric Lumbar spinal stenosis, Peripheral neuropathy, Recurrent manic disorder, Generalized hyperhidrosis, RODRIGUEZ (dyspnea on exertion), Anxiety associated with depression, Chronic pain disorder, Sleep-related breathing disorder, Stage 2 moderate COPD by GOLD classification, Esophageal obstruction due to food impaction, Arnold-Chiari deformity, Alcohol abuse, Osteoporosis Medications related to this diagnosis: omeprazole, please see chart for other medications. Smoking Status: Former smoker Diagnosis Diagnosis: Dysphagia, unspecified Pain Is pain an issue with your current prescribed condition?: No Personal Preferred language: [place] Patient Allergies Allergies Allergies: Allergies Fish Containing Products Allergy (Severe, Verified 09/15/24 11:18) Angioedema shellfish derived Allergy (Severe, Verified 09/15/24 11:18) Angioedema Horse/Equine Containing Products Allergy (Unknown, Verified 09/15/24 11:18) NEEDS FOLLOW-UP lisinopril Allergy (Unknown, Verified 09/15/24 11:18) Unknown Subjective Dysphagia Symptoms Reported Symptoms/Problems with: Coughing, Choking, Difficulty Swallowing Solids and Difficulty Swallowing Liquids Current Diet Solids Current Diet: Regular Current Diet Liquids Current Liquids: Thin Objective Dysphagia Administered by Administered by: Self Thin Liquids Administred via: Cup Bolus clearance: fully cleared Gagging: No Cough: none observed/unable to assess Pharyngeal phase: suspect pharyngeal deficits Patient Report: No deficits reported during swallowing today as she previously stated deficits are intermittent for coughing. Regular Oral Preparation: WNL Oral Transit: WNL Bolus clearance: fully cleared Gagging: No Cough: none observed/unable to assess Pharyngeal phase: suspect pharyngeal deficits Patient Report: No reported deficits today as she reported that difficulty is intermittent. Impact Impact on Safety & Functioning: Risk for Aspiration Recommendations Modified Barium Swallow/Cookie Swallow Recommended: Yes Swallowing Treatment: Yes Diet Texture Recommendations Solids: Regular (Level 7) Liquids: Thin (Level 0) Schwarz free water Protocol: No Safety Saftey Precautions/Swallowing Recommendations (Check all that Apply): Reduce Distractions, Small Sips & Bites when Eating and Other (Specify Below) Other: Chew thoroughly. Results Swallowing Within Normal Limits: No Swallowing Diagnosis: Dysphagia Unspecified (R13.10) Objective Oral Motor Oral Status Dentition: Upper Dentures Labial Impairment: WNL Closure: WNL Pucker: WNL Retraction: WNL Alternating Pucker/Retraction: WNL Involuntary Movement noted: No Lingual Impairment: WNL Protrusion: WNL Retraction: WNL Lateralization: WNL Involuntary Movement: No Jaw Impairment: WNL Involuntary Movement: No Respiratory Status Respiratory Status: Room Air Swallowing Performance Scale Swallowing Performance Scale Swallowing Performance Scale Result: 3 Mild Reference: Neuro-QoL instrument Radiation Oncology Patient Plan Plan Plan: Speech therapy is recommended to address dysphagia. Recommend MBSS for further assessment of swallow function and esophageal screening. After MBSS is complete, patient is to return to outpatient for education and training on diet recommendations from MBSS along with exercises. Recommendations Treatment Warranted: Yes Treatment Warranted: Dysphagia Progress Prognosis: Good Frequency Frequency: Monthly Duration: 6 Months Visits in this POC: 6 Patient/Family Goal Patient/Family Goal: Patient would like to eat normally. Goals that are Established Determination:: Goals will be added/modified as deemed necessary and appropriate. Therapy will be discontinued when results of re-evaluation indicate therapy is no longer needed or lack of progress has been documented. Goal #1-5 Goal #1: Patient will tolerate the least restrictive means of nutrition to facilitate adequate hydration/nutrition with optimum safety and efficiency of swallowing function during P.O. intake without overt signs and symptoms of penetration/ aspiration. Goal #2: Patient will participate in MBSS with goals added for exercises as needed as recommended by results. Education Patient has Indicated that the Following Identified Educational Needs: None The Patient has indicated that they have no educational or learning abilities that may effect their care.: Yes Patient Instruction Patient Education: Diagnosis and Treatment Plan Person Taught: Patient Response to teaching: Verbalize Understanding
--- NOTE | 2025-01-18 09:13 | HP.SP.DC_ITS ---
ST Discharge Summary Discharged: Discharge: Jena Ramirez is discharged from [facility] as of January 18, 2025. She was evaluated on 10/20/24 for dysphagia. Patient participated in MBSS on 11/24/24 with Regular Textures and Thin Liquids recommended with the following Compensatory Strategies: Small Bites (Chew thoroughly), Small Sips, Slow Rate, Alternate bites/solids and sips/liquids (Take a drink after every 1-2 bites), Sitting upright (During meal and 30-60min after) and minimize/decrease distractions. She was treated for one session after MBSS to provide exercises and education. She was to return in one month to re- assess dysphagia at that time. She cancelled an appointment on 12/14/24 and no further visits were scheduled by patient. Thank you for allowing me to participate in the care of this patient.
== END 2024-11-25 19:00 | disposition home or self-care (01) ==
LOC: SP 12:00
PROVIDERS: PCP Family Medicine; Referring Provider Family Medicine; Visit Provider Family Medicine
DX: R13.10 Dysphagia, unspecified (principal)
CPT/HCPCS: 92526; 92610

== ENCOUNTER → 2025-01-01 | Outpatient (CLI) | payer MEDICARE, SELFPAY ==
--- NOTE | 2025-01-01 12:48 | CT_ITS ---
PROCEDURE: LOW DOSE CT LUNG SCREENING 01/01/2025 REASON FOR EXAM: SMOKER QUIT 2010 TECHNIQUE: Low Dose CT Lung screening without contrast. Coronal and Sagittal reconstruction series were provided. One or more dose reduction techniques were used (e.g., Automated exposure control, adjustment of the mA and/or kV according to patient size, use of iterative reconstruction technique). REFERENCE LINK: [employer] Lung-RADS RADIATION DOSE SUMMARY: CTDlvol: 2.0 mGy DLP: 61.2 mGycm COMPARISON: CT chest on 01/01/2024 and 05/16/2022. FINDINGS: PULMONARY NODULES: (Only nodules >3 mm are reported) Nodules described below are on series 2 unless otherwise specified. Pulmonary Nodules: Perifissural nodule in the left lower lobe measuring 3 mm (image 116), unchanged Lymph Nodes:Unremarkable Heart and Vasculature:Coronary artery calcifications are noted.Trace atherosclerotic calcifications of the thoracic aorta. Thoracic aorta and pulmonary arteries have normal contours; noncontrast technique limits evaluation. Coronary Artery Calcifications: Present, mild multivessel Lungs and Airways: Apical predominant centrilobular emphysema. Unchanged scarring at the medial aspect of the right lung apex, and at the central aspect of the left lung apex. Pleura:Unremarkable Upper Abdomen:Unremarkable Bones:Degenerative changes and rightward curvature of the thoracic spine. CT/Low Dose CT Lung Screening IMPRESSION: Lung-RADS Category: 2 BENIGN (BASED ON IMAGING FEATURES OR INDOLENT BEHAVIOR). RECOMMEND 12-MONTH SCREENING LDCT. Other Significant Findings: Mild coronary artery calcification (CAC) is present Reading Location: [facility]
== END | disposition home or self-care (01) ==
PROVIDERS: PCP Family Medicine; Referring Provider Nurse Practitioner Acute Care; Visit Provider Nurse Practitioner Acute Care
DX: F17.210 Nicotine dependence, cigarettes, uncomplicated (principal)
CPT/HCPCS: 71271

== ENCOUNTER 2025-03-31 06:50 | Day surgery (SDC) | payer MEDICARE, SELFPAY ==
--- NOTE | 2025-03-25 16:23 | PAT.ANESEVAL ---
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 When Was Last Pacemaker Check QUESTION #4 FULL TEXT: You/Your Family Experience fever (hyperthermia) with Anesthesia Last Oral Intake Last Oral intake: Last Oral Intake NPO since Meds taken in AM with sips of water? Meds patient instructed to take am of surgery PONV PONV - toll bridge attendant: PONV - toll bridge attendant Female Yes 03/25/25 16:02 HX of Motion Sickness No 03/25/25 16:02 HX of N/V After Surgery No 03/25/25 16:02 Non-Smoker Yes 03/25/25 16:02 Duration of Surgery greater No 03/25/25 16:02 than 60 minutes Number of Risk Factors 2 03/25/25 16:02 PONV Score Moderate Risk 03/25/25 16:02 Height & Weight Height & Weight: Anesthesia: Height & Weight Height 4 ft 9 in 02/09/25 07:42 Respiratory Assessment Respiratory Assessment - toll bridge attendant: Respiratory Tract Infection Hx - toll bridge attendant Hx Respiratory Tract Infection No 03/25/25 16:02 STOP Sleep Apnea STOP Sleep Apnea - toll bridge attendant: STOP Sleep Apnea - toll bridge attendant Hx Hypertension Yes: PER PT, CONTROLLED ON 03/25/25 16:02 MEDS Hx Sleep Apnea No 03/25/25 16:02 CPAP Yes 06/30/18 07:52 BIPAP Yes 06/26/18 15:33 Do you snore loudly (louder No 03/25/25 16:02 than talking or can be heard Do you often feel tired/ No 03/25/25 16:02 fatigued/ sleepy during daytime? Has anyone observed you stop No 03/25/25 16:02 breathing during sleep? STOP Results Negative 03/25/25 16:02 QUESTION #5 FULL TEXT : Do you snore loudly (louder than talking or can be heard through closed doors)? Tobacco Use History Tobacco Use History - toll bridge attendant: Tobacco Use History - toll bridge attendant Tobacco Use Smoking Status Former smoker 03/25/25 16:02 Hx Tobacco Use No 03/25/25 16:02 Years Smoking Packs Smoked per Day Smoking Cessation Date was Yes - quit smoking within 15 03/25/25 16:02 within the last 15 years years Hx Smoking Cessation Date 02/24/16 03/25/25 16:02 Hx Smoking Cessation No 03/25/25 16:02 Counseling Hematologic Medial History Hematologic Hx - toll bridge attendant: Hematologic Medical Hx - mannequin mounter Hx of Blood Transfusion No 03/25/25 16:02 Hx of Transfusion in last 3 No 03/25/25 16:02 Months Date of Last Transfusion (if within last 3 months) Ever experience any problems No 03/25/25 16:02 with transfusion(s)? Specify any problems Hx of Preganancy in last 3 No 03/25/25 16:02 Months Nurse Filling Out Transfusion MGELPIDIO 03/25/25 16:02 & Questions: Date: 03/25/25 03/25/25 16:02 Time: 16:04 03/25/25 16:02 Patient unable to answer at this time (ie. confused, unrespo /Reproduction History /Reproductive History - toll bridge attendant: /Reproductive Hx- toll bridge attendant Hx Now No 03/25/25 16:02 Gestational Age (in weeks): EDC: Hx Hx Para Hx Section SAB No 03/25/25 16:02 ON LICENSE OF [facility] Medical History (Updated 03/25/25 @ 16:13 by Dana Ang) Alcohol use Easy bruising Gastric reflux History of stress test History of echocardiogram History of abdominal aortic aneurysm Vitamin D toxicity Uterine fibroid Former smoker Asthma COPD (chronic obstructive pulmonary disease) Hypertension Partial small bowel obstruction COVID-19 HSV (herpes simplex virus) anogenital infection Overactive bladder Emphysema of lung Benign essential HTN Postmenopausal atrophic vaginitis Lung mass Climacteric Lumbar spinal stenosis Peripheral neuropathy Recurrent manic disorder Cervicalgia Generalized hyperhidrosis Chronic interstitial cystitis RODRIGUEZ (dyspnea on exertion) Anxiety associated with depression Chronic pain disorder Sleep-related breathing disorder Stage 2 moderate COPD by GOLD classification Esophageal obstruction due to food impaction Arnold-Chiari deformity COPD, moderate Alcohol abuse Osteoporosis Home Medications ?Medication ?Instructions ?Recorded ?Last Taken ?Type melatonin 10 mg sublingual tablet 10 mg PO QHS sleeping pill 05/20/18 03/16/22 21:00 History ascorbic acid (vitamin C) 500 mg 1,000 mg PO DAILY supplement 06/26/18 03/16/22 09:00 History tablet,extended release biotin 5,000 mcg sublingual tablet 5,000 mcg sublingual DAILY 02/23/21 03/16/22 09:00 History supplement cyanocobalamin (vitamin B-12) 2,500 mcg PO DAILY supplement 04/27/21 03/16/22 09:00 History 2,500 mcg tablet acyclovir 400 mg tablet 400 mg PO BID female issue 04/16/22 Unknown History calcium carbonate (Calcium 600) 600 mg PO DAILY bones 06/01/23 Unknown History amlodipine 2.5 mg tablet (Norvasc) 2.5 mg PO DAILY Blood pressure 01/01/24 Unknown History trazodone 150 mg tablet 150 mg PO QHS 07/21/24 Unknown History montelukast 10 mg tablet 10 mg PO QPM breathing #90 tabs 10/19/24 Unknown Rx omeprazole 40 mg capsule,delayed 40 mg PO DAILY acid reflux #90 caps 12/17/24 Unknown Rx release ondansetron HCl 4 mg tablet 4 mg PO .COMPLEX #5 tabs 12/17/24 Unknown Rx peg 3350-electrolytes 236 240 ml PO Q10M #4,000 mL 12/21/24 Unknown Rx gram-22.74 gram-6.74 gram-5.86 gram solution (Golytely) albuterol sulfate 90 mcg/actuation 2 puff inhalation Q6H PRN 02/09/25 Unknown Rx aerosol inhaler (ProAir HFA) shortness of breath or wheezing #3 ea alendronate 70 mg tablet 70 mg PO QWEEK 02/09/25 Unknown History quetiapine 50 mg tablet 50 mg PO QHS 02/09/25 Unknown History budesonide-formoterol HFA 160 2 inh inhalation BID 03/25/25 Unknown History mcg-4.5 mcg/actuation aerosol inhaler (Breyna) Allergy/AdvReac Type Severity Reaction Status Date / Time Fish Containing Products Allergy Severe Angioedema Verified 03/25/25 15:53 shellfish derived Allergy Severe Angioedema Verified 03/25/25 15:53 Horse/Equine Containing Allergy Unknown NEEDS Verified 03/25/25 15:53 Products FOLLOW-UP lisinopril Allergy Unknown Unknown Verified 03/25/25 15:53 Family History Father Hypertension Aortic aneurysm Cancer skin and bladder Colon cancer Mother Brain aneurysm Depression Surgical History H/O Spinal surgery H/O eye surgery History of bilateral tubal ligation S/P craniotomy Social History household members: none Smoking Status: Former smoker quit date: 09/02/10 pack-years: 57 second hand exposure: No alcohol intake: current alcohol intake frequency: 3 or more drinks per day Alcohol type: beer details: Drinks 5-6 beers daily, nearly no breaks in her days of intake. substance use type: does not use caffeine: Yes what type of physical activity do you participate in: walking and 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 Audit: Pertinent Findings Pertinent Findings EKG Perinent findings: 03/19/2022: Normal sinus rhythm, normal ECG. Stress test pertinent findings: 05/24/2021: Technically adequate (percent predicted maximal heart rate greater than 85%) exercise tolerance test. Peak exercise ECG with somatic/motion artifact with no obvious ECG changes. Echo (EF%) pertinent findings: 12/31/23: LV with normal size and grade 1 diastolic dysfunction. LVEF 60%. Normal RV size and systolic function. Recommendation Anesthesia Recommendation Anesthesia recommendation: OPTIMIZED for anesthesia
[2025-03-31] VITALS (8 sets, daily range): BP systolic 116–133; BP diastolic 73–84; PULSE 73–86; RESP 16; TEMP 36.3–36.9; O2SAT 84–98; BMI 19.5
--- OUTSIDE RECORDS SUMMARY | 2025-03-31 06:55 | XMS RPT_ITS | CCD ---
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 Rito Camp Primary Care Provider Leila VOLTAGE TESTER, VOLTAGE TESTER-C Sierra Referring Provider Leila VOLTAGE TESTER, VOLTAGE TESTER-C Sierra Other Provider Dr. Jim Simeon Attending Provider Dale FRIEDMAN, Kami Crum Unavailable Dr. Eb Godinez Emergency Provider Dr. Rita Foster Admit Provider Dr. Rita Foster Other Provider Dr. Jazz Collins Attending Provider Dr. Jazz Collins Other Provider Dr. Kami Randall Other Provider Dr. Kami Randall Attending Provider Rito Camp MD Primary Care Provider Dale FRIEDMAN, Kami Crum Unavailable Suleman Gustafson Unavailable Dr. Rito Camp Primary Care Provider Dr. Kami Randall Referring Provider Dr. Rito Camp Referring Provider Dr. Suleman Gustafson Attending Provider Rito Camp MD Primary Care Provider Dale RN, Kami Crum Unavailable Suleman Gustafson Unavailable Rito Camp MD Primary Care Provider Dale RN, Kami Crum Unavailable Suleman Gustafson Unavailable Bertin FRIEDMAN, Ruth Unavailable Unavailable Rickie RN, Kerrie Unavailable Suleman Gustafson Unavailable Rickie RN, Kerrie Unavailable Dr. Rito Camp Primary Care Provider Dr. Rito Camp Referring Provider Dr. Jeffrey Mckee Attending Provider Leila VOLTAGE TESTER, VOLTAGE TESTER-C Sierra Attending Provider [phone] Dr. Tyler Green Emergency Provider Dr. Boby Jordan Admit Provider Dr. Boby Jordan Attending Provider Dr. Boby Jordan Other Provider Dr. Mick Pelletier Other Provider Dr. Jazz Collins Attending Provider Dr. Jazz Collins Other Provider Dr. Mick Pelletier Attending Provider Bertin FRIEDMAN, Ruth Unavailable Unavailable Dale FRIEDMAN, Kami Crum Unavailable Keith FRIEDMAN, Christine Unavailable Unavailable Rito Camp MD Primary Care Provider Dr. Rito Camp Primary Care Provider Dr. Rito Camp Referring Provider Leila VOLTAGE TESTER, JAIROC Sierra Attending Provider Rito Camp MD Primary Care Provider Asif SMYTH MD, Darvin A Primary Care Provider Tasneem vailable Bran PRODUCTION SAMPLER.SENIOR INFORMATICA DEVELOPER, Alex Unavailable Peter DOBBINS, Shanita Unavailable Naina FONTANEZ, Dr. Veras Primary Care Provider Naina FONTANEZ, Dr. Veras Referring Provider Yuly VOSS-CLetha Attending Provider Naina FONTANEZ, Dr. Veras Attending Provider Naina FONTANEZ, Rito Vines Primary Care Provider Naina FONTANEZ, Rito Vines Primary Care Provider Rom VOSS-CAngella Attending Provider Leila VOSS-C, Sierra Attending Provider Leila VOSS-C, Sierra Referring Provider Dr. Rito Camp MD Primary Care Provider [phone] Naina FONTANEZ, Dr. Veras Referring Provider Yuly VOSS-CLetha Attending Provider Bran PRODUCTION SAMPLER.SENIOR INFORMATICA DEVELOPER, Alex Unavailable Peter DOBBINS, Shanita Unavailable [phone] NAINA, RITO A Primary Care Unavailable NAINA, RITO A Primary Care Unavailable NAINA, RITO A Attending Unavailable NAINA, RITO A Primary Care Unavailable ALEX BROWN Attending Unavailable NAINA, RITO A Primary Care Unavailable KNALEX BAUTISTA Attending Unavailable NAINA, RITO A Primary Care Unavailable SHANNA NEWTON Referring Unavailable NAINA, RITO A Primary Care Unavailable ALEX BROWN Attending Unavailable NAINA, RITO A Primary Care Unavailable SELF Referring Unavailable SHANITA GREEN Attending Unavailable NAINA, RITO A Primary Care Unavailable ALEX BROWN Referring Unavailable NAINA, RITO A Primary Care Unavailable SHANITA GREEN Referring Unavailable MARY ANN OSCAR Attending Unavailable NAINA, RITO A Primary Care Unavailable KNALEX BAUTISTA Referring Unavailable NAINA, RITO A Primary Care Unavailable GREEN, SHANITA Referring Unavailable NAINA, RITO A Primary Care Unavailable GREEN, SHANITA Referring Unavailable NAINA, RITO A Primary Care Unavailable GREEN, SHANITA Referring Unavailable MARY ANN OSCAR Attending Unavailable NAINA, RITO A Primary Care Unavailable GREEN, SHANITA Referring Unavailable NAINA, RITO A Primary Care Unavailable GREEN, SHANITA Attending Unavailable NAINA, RITO A Primary Care Unavailable NAINA, RITO A Attending Unavailable NAINA, RITO A Primary Care Unavailable ALEX BROWN Referring Unavailable NAINA, RITO A Primary Care Unavailable GREEN, SHANITA Referring Unavailable NAINA, RITO A Primary Care Unavailable NAINA, RITO A Primary Care Unavailable NAINA, RITO A Referring Unavailable NAINA, RITO A Primary Care Unavailable NAINA, RITO A Primary Care Unavailable NAINA, RITO A Referring Unavailable Naina, Rito Attending Unavailable Naina, Rito Referring Unavailable Naina, Rito Primary Care Unavailable Naina Rito Attending Unavailable Naina, Rito Referring Unavailable Naina, Rito Primary Care Unavailable Leila VOLTAGE TESTER, Sierra Attending Unavailable Leila VOLTAGE TESTERSierra Referring Unavailable Naina, Rito Primary Care Unavailable Letha Emery Attending Unavailable Naina, Rito Referring Unavailable Naina, Rito Primary Care Unavailable Suleman Gustafson Attending Unavailable Letha Emery Referring Unavailable Naina, Rito Primary Care Unavailable Letha Emery Attending Unavailable Naina, Rito Referring Unavailable Naina, Rito Primary Care Unavailable Robe Gill Attending Unavailable Naina, Rito Primary Care Unavailable Naina, Rito Referring Unavailable Letha Emery M Attending Unavailable Moyer Letha M Referring Unavailable Naina, Rito Primary Care Unavailable Angella Cueto Attending Unavailable Naina, Rito Referring Unavailable Naina, Rito Primary Care Unavailable Letha Emery Attending Unavailable Naina, Rito Referring Unavailable Naina, Rito Primary Care Unavailable Allergies Allergy Classification Reported Allergen(s) Allergy Type Date of Onset Reaction(s) Facility Angiotensin Converting Enzyme (ANDRES) Inhibitors (1 source) Lisinopril Drug Allergy 6 Cough [facility] Shellfish (1 source) Shellfish Food Allergy 3 Unknown [facility] (20 sources) Fish; Translations: [FISH] Food Allergy 5 Unknown [facility] Work Phone: (20 sources) Lisinopril; Translations: [LISINOPRIL] Drug Allergy 6 Cough [facility] Work Phone: (20 sources) HORSE SERUM [Other] Propensity to adverse reactions 5 Unknown [facility] Work Phone: (20 sources) SEAFOOD [Other] Propensity to adverse reactions 5 Unknown [facility] Work Phone: (4 sources) Seafood Allergy to substance 1 Angioedema [facility] Work Phone: (12 sources) Fish Containing Products; Translations: [Fish Containing Products] Allergy to substance 1 Angioedema [facility] (3 sources) horse serum Allergy to substance 1 Unknown [facility] Work Phone: (9 sources) Horse/Equine Containing Products; Translations: [HORSE/EQUINE CONTAINING PRODUCTS] Allergy to substance 2 NEEDS FOLLOW-UP [facility] (20 sources) Shellfish; Translations: [SHELLFISH DERIVED] Allergy to substance 3 Unknown [facility] (20 sources) Horse/Equine Containing Products Propensity to adverse reactions to drug 3 Unknown [facility] Work Phone: (1 source) Lisinopril Drug Allergy 5 [facility] Rep[facility] (1 source) Horse/Equine Containing Products Drug allergy (disorder) 5 [facility] Rep[facility] Medications Current Medications Medication Drug Class(es) Dates Sig (Normalized) Sig (Original) acetaminophen 325 mg / HYDROcodone bitartrate 5 mg oral tablet (2 sources) Opioid Agonist Start: 10-15-2023 End: 10-18-2023 take 1 tablet by mouth every eight hours as needed for pain HYDROcodone-acet aminophen (NORCO) 5-325 mg per tablet Indications: Neck pain , Acute pain of right shoulder Take 1 tablet by mouth every 8 hours as needed for pain for up to 3 days. 9 tablet 0 10/15/2023 10/18/2023 Active Comment on above: Take 1 tablet by north th every 8 hours as needed for pain for up to 3 days. acyclovir 400 mg oral tablet (20 sources) Herpesvirus Nucleoside Analog DNA Polymerase Inhibitor, Herpes Simplex Virus Nucleoside Analog DNA Polymerase Inhibitor, Herpes Zoster Virus Nucleoside Analog DNA Polymerase Inhibitor Start: 07-25-2021 End: 11-30-2024 take 1 tablet by mouth twice daily acyclovir (ZOVIRAX) 400 mg tablet Take 1 tablet by mouth two times a day. 180 tablet 1 11/30/2024 Active Start: 10-18-2020 End: 04-03-2021 take 1 tablet by mouth twice daily acyclovir (ZOVIRAX) 400 mg tablet Take 1 tablet by mouth twice daily. 90 tablet 3 10/18/2020 04/03/2021 Discontinued Comment on above: Take 1 tablet by north twice daily. [id number] 200 actuat albuterol 0.09 mg/actuat metered dose inhaler (20 sources) beta2-Adrenergic Agonist Start: 07-09-2022 End: 09-27-2022 albuterol (PROVENTIL) 2.5 mg /3 mL (0.083 %) nebulizer solution Indications: Feeling of chest tightness , SOB (shortness of breath) Use 3 mL via nebulizer every 4 hours as needed for wheezing/shortness of breath. Use over 5-15minutes. 540 mL 1 07/09/2022 09/27/2022 Discontinued Start: 09-10-2019 End: 02-09-2025 Albuterol Sulfate (Proair Hf a) 90 mcg/actuation HFA aerosol inhaler Active 2 NMA INHALATION EVERY 6 HOURS as needed for shortness of breath or wheezing 3 February 09, 2025 11:08am Start: 09-10-2019 End: 08-29-2022 take 1 puff(s) by inhalation every six hours Albuterol Sulfate (Proair Hfa) 90 mcg/actuation HFA aerosol inhaler Discontinued 2 PUFF INHALATION EVERY 6 HOURS 3 December 19, 2021 1:32pm August 29, 2022 3:27pm Start: 07-08-2018 End: 02-04-2019 take 1 puff(s) by inhalation every four hours Albuterol Sulfate (Proair Hfa) 90 mcg/actuation HFA aerosol inhaler Discontinued 2 PUFF INHALATION Q4H 3 July 08, 2018 2:47pm February 04, 2019 12:09pm Start: 07-07-2018 End: 07-08-2018 take 1 puff(s) by inhalation every four hours Albuterol Sulfate (Proair Hfa) 90 mcg/actuation HFA aerosol inhaler Discontinued 2 PUFF INHALATION Q4H 8.5 July 07, 2018 8:54am July 08, 2018 2:48pm Start: 05-28-2018 End: 07-07-2018 take 1 puff(s) by inhalation every four hours Albuterol Sulfate (Proair Hfa) 90 mcg/actuation HFA aerosol inhaler Discontinued 2 PUFF INHALATION Q4H May 28, 2018 12:45pm July 07, 2018 8:59am Start: 05-28-2018 End: 09-10-2019 Albuterol Sulfate (Ventolin Hfa) 90 mcg/actuation HFA aerosol inhaler Discontinued 2 NMA INHALATION Q4H as needed for For wheezing or Shortness of Breath September 08, 2019 3:07pm September 10, 2019 4:25pm Start: 05-28-2018 End: 09-10-2019 take 1 puff(s) by inhalation every four hours Albuterol Sulfate (Ventolin Hfa) 90 mcg/actuation HFA aerosol inhaler Discontinued 2 PUFF INHALATION Q4H September 08, 2019 3:07pm September 10, 2019 4:25pm Start: 12-09-2017 take 2 puff(s) by in halation every four hours as needed for wheezing albuterol HFA (PROAIR HFA) 90 mcg/actuation inhaler Indications: Asthma with COPD with exacerbation (HCC) Inhale 2 Puffs as instructed every 4 hours as needed for Wheezing/Shortness of Breath. 3 Inhaler 3 12/09/2017 Active Comment on above: Inhale 2 Puffs as in structed every 4 hours as needed for Wheezing/Shortness of Breath. Use 3 mL via nebuliz er every 4 hours as needed for wheezing/shortness of breath. Use over 5-15minutes. albuterol 0.833 mg/ml / ipratropium bromide 0.167 mg/ml inhalation solution (5 sources) Anticholinergic, beta2-Adrenergic Agonist Start: 024 take 1 mL by inhalation every four hours as needed for wheezing Ipratropium-[place] rol 0.5 mg-3 mg(2.5 mg base)/3 mL solution for nebulization Active 3 mL INHALATION EVERY 4 HOURS NEEDED as needed for SOB &/OR WHEEZING December 25, 2023 12:00am Start: 12-25-2023 take 1 mL by inhalat ion every four hours as needed Ipratropium-Albuterol Active 3 ML INHALATION EVERY 4 HOURS NEEDED December 25, 2023 12:00am alendronic acid 70 mg oral tablet (20 sources) Bisphosphonate Start: 12-29-2024 take 1 tablet by mouth every week in the morning alendronate (FOSAMAX) 70 mg tablet Take 1 tablet by mouth one time a week. In am with glass of water, on a empty stomach, nothing by mouth or lying down for 30 minutes 12 tablet 3 12/29/2024 Active Start: 02-23-2021 End: 04-27-2021 take 70 mg by mouth every week Alendronate 70 mg/75 mL Solution Discontinued 70 mg PO EVERY WEEK February 23, 2021 12:00am April 27, 2021 10:36am Start: 12-10-2019 End: 02-25-2023 take 1 tablet by mouth every week Alendronate 70 mg tablet Discontinued 70 mg PO EVERY WEEK April 27, 2021 12:00am February 25, 2023 9:29am Comment on above: Take 1 tablet by north th one time a week. Take with a full glass of water, on an empty stomach; do NOT lie down for 30minutes. amLODIPine 2.5 mg oral tablet (20 sources) Dihydropyridine Calcium Channel Kana Start: End: take 1 tablet by mouth once daily amLODIPine (NORVASC) 2.5 mg tablet Indications: Essential hypertension, benign Take 1 tablet by mouth once daily. 90 tablet 3 09/30/2024 Active Start: 09-20-2021 End: 08-27-2022 take 1 tablet by mouth once daily amLODIPine (NORVASC) 2.5 mg tablet Indications: Essential hypertension, benign Take 1 tablet by mouth once daily. 90 tablet 1 09/20/2021 04/30/2022 Discontinued Start: 04-27-2021 End: 01-01-2024 take 2 tablets by mouth once daily Amlodipine (Norvasc) 2.5 mg tablet Discontinued 5 mg PO DAILY April 27, 2021 11:22am January 01, 2024 8:45am Start: 12-02-2018 End: 04-27-2021 take 1 tablet by mouth once daily Amlodipine (Norvasc) 2.5 mg tablet Discontinued 2.5 mg PO DAILY December 02, 2018 12:00am April 27, 2021 11:25am Comment on above: Take 1 tablet by north th once daily. ascorbic acid 500 mg extended release oral tablet (20 sources) Vitamin C Start: 06-26-2018 take 2 tablets by mouth once daily Ascorbic Acid (Vitamin C) 500 MG tablet extended release Active 1000 mg PO DAILY June 26, 2018 12:00am Start: 06-26-2018 take 1000 mg by mouth once kala ly Ascorbic Acid (Vitamin C) Active 1000 MG PO DAILY June 26, 2018 12:00am Ascorbic Acid (V ITAMIN C) 1,000 mg TbER Take by mouth. Active Comment on above: Take by mouth. ascorbic acid/collagen hydr (COLLAGEN PLUS VITAMIN C ORAL) (20 sources) take 1000 mg by mout h twice daily ascorbic acid/collagen hydr (COLLAGEN PLUS VITAMIN C ORAL) Take 1,000 mg by mouth twice daily. Active take 1000 mg by mouth twice gisel y ascorbic acid/collagen hydr (COLLAGEN PLUS VITAMIN C ORAL) Take 1,000 mg by mouth twice daily. 0 Active Comment on above: Take 1,000 mg by north th twice daily. azithromycin 250 mg oral tablet (19 sources) Macrolide Antimicrobial Start: 06-07-20 End: 06-12-20 take 2 tablets by mouth once daily, then take 1 tablet by mouth once daily azithromycin (ZITHROMAX) 250 mg tablet Indications: Respiratory infection Take 2 tablets by mouth once daily for 1 day, THEN 1 tablet once daily for 4 days. 6 tablet 06/07/2024 06/12/2024 Active Start: 12-22-2023 End: 12-27-2023 take 2 tablets by mouth once daily, then take 1 tablet by mouth once daily azithromycin (ZITHROMAX) 250 mg tablet Take 2 tablets by mouth once daily for 1 day, THEN 1 tablet once daily for 4 days. 6 tablet 0 12/22/2023 12/27/2023 Active Start: 06-08-2023 End: 06-13-2023 azithromycin (ZITHROMAX Z-PA K) 250 mg tablet Take 2 tablets day one, then, 1 tablet daily until gone. 6 tablet 0 06/08/2023 06/13/2023 Active Start: 12-02-2018 End: 10-12-2019 take 1 tablet by mouth once daily Azithromycin 250 mg tablet Discontinued 250 mg PO daily December 02, 2018 12:00am October 12, 2019 11:25am Comment on above: Take 2 tablets day o ne, then, 1 tablet daily until gone. Take 2 tablets by [facility] once daily for 1 day, THEN 1 tablet once daily for 4 days. biotin 5 mg sublingual tablet (20 sources) Start: 02-23-2021 take 1 tablet under the tongue once daily Biotin 5,000 mcg Tablet, Sublingual Active 5000 ug SL DAILY February 23, 2021 12:00am BIOTIN ORAL Take 5,000 mcg by mouth. Active BIOTIN ORAL Take 5,000 mcg by mouth. 0 Active Comment on above: Take 5,000 mcg by [facility]. Budesonide-Formoterol (20 sources) Corticosteroid, beta2-Adrenergic Agonist Start: 07-21-2024 Budesonide-Formoterol (Symbicort) 160-4.5 mcg/actuation HFA aerosol inhaler Active 2 NMA INHALATION TWICE A DAY 3 July 21, 2024 1:00am Start: 08-19-2023 End: 07-21-2024 Budesonide-Formoterol (Symbi justus) 160-4.5 mcg/actuation HFA aerosol inhaler Discontinued 2 NMA INHALATION TWICE A DAY 3 August 19, 2023 10:18am July 21, 2024 12:47pm administer with spacer, rinse mouth after each use Start: 08-19-2023 take 1 puff(s) by [facility] twice daily Budesonide-Formoterol (Symbicort) 160-4.5 mcg/actuation HFA aerosol inhaler Active 2 PUFF INHALATION TWICE A DAY 3 August 19, 2023 10:18am administer with spacer, rinse mouth after each use Start: 08-29-2022 End: 08-19-2023 Budesonide-Formoterol (Symbi justus) 160-4.5 mcg/actuation HFA aerosol inhaler Discontinued 2 NMA INHALATION TWICE A DAY 3 August 29, 2022 3:27pm August 19, 2023 10:18am administer with spacer, rinse mouth after each use Start: 08-29-2022 End: 08-19-2023 take 1 puff(s) by mouth twice daily Budesonide-Formoterol (Symbicort) 160-4.5 mcg/actuation HFA aerosol inhaler Discontinued 2 PUFF INHALATION TWICE A DAY 3 August 29, 2022 3:27pm August 19, 2023 10:18am administer with spacer, rinse mouth after each use Start: 08-29-2022 take 1 puff(s) by mo [facility] twice daily Budesonide-Formoterol (Symbicort) 160-4.5 mcg/actuation HFA aerosol inhaler Active 2 PUFF INHALATION TWICE A DAY 3 August 29, 2022 3:27pm administer with spacer, rinse mouth after each use Start: 03-17-2022 End: 08-29-2022 Budesonide-Formoterol (Symbi justus) 160-4.5 mcg/actuation HFA aerosol inhaler Discontinued 2 NMA INHALATION TWICE A DAY March 17, 2022 11:05pm August 29, 2022 3:27pm administer with spacer, rinse mouth after each use Start: 03-17-2022 End: 08-29-2022 take 1 puff(s) by mouth twice daily Budesonide-Formoterol (Symbicort) 160-4.5 mcg/actuation HFA aerosol inhaler Discontinued 2 PUFF INHALATION TWICE A DAY March 17, 2022 11:05pm August 29, 2022 3:27pm administer with spacer, rinse mouth after each use Start: 03-17-2022 take 1 puff(s) by [facility] twice daily Budesonide-Formoterol (Symbicort) 160-4.5 mcg/actuation HFA aerosol inhaler Active 2 PUFF INHALATION TWICE A DAY March 17, 2022 11:05pm administer with spacer, rinse mouth after each use Start: 12-22-2018 SYMBICORT 160- 4.5 mcg/actuation inhaler 12/22/2018 Active Start: 12-22-2018 End: 03-17-2022 Budesonide-Formoterol (Symbi justus) 160-4.5 mcg/actuation HFA aerosol inhaler Discontinued 2 NMA INHALATION TWICE A DAY 3 August 24, 2020 3:00pm March 17, 2022 11:05pm administer with spacer, rinse mouth after each use Start: 12-22-2018 End: 03-17-2022 take 1 puff(s) by mouth twice daily Budesonide-Formoterol (Symbicort) 160-4.5 mcg/actuation HFA aerosol inhaler Discontinued 2 PUFF INHALATION TWICE A DAY 3 August 24, 2020 3:00pm March 17, 2022 11:05pm administer with spacer, rinse mouth after each use Start: 01-29-2018 End: 01-30-2018 Budesonide-Formoterol (Symbi justus) 160-4.5 mcg/actuation HFA aerosol inhaler Discontinued 2 NMA INHALATION Q12H January 29, 2018 12:00am January 30, 2018 8:16am Start: 01-29-2018 End: 01-30-2018 take 1 puff(s) by inhalation every twelve hours Budesonide-Formoterol (Symbicort) 160-4.5 mcg/actuation HFA aerosol inhaler Discontinued 2 PUFF INHALATION Q12H January 29, 2018 12:00am January 30, 2018 8:16am calcium carbonate 1500 mg oral tablet (18 sources) Start: 06-01-2023 take 1 tablet by mouth once daily Calcium Carbonate (Calcium 600) 600 mg calcium (1,500 mg) tablet Active 600 mg PO DAILY June 01, 2023 12:00am Start: 05-09-2016 End: 04-27-2021 take 2 tablets by mouth once daily Calcium Carbonate 600 MG tablet Discontinued 1200 mg PO DAILY May 09, 2016 12:00am April 27, 2021 10:38am Start: 05-09-2016 End: 04-27-2021 take 1200 mg by mouth once daily Calcium Carbonate Discontinued 1200 MG PO DAILY May 09, 2016 12:00am April 27, 2021 10:38am celecoxib 200 mg oral capsule (20 sources) Nonsteroidal Anti-inflammatory Drug Start: 10-01-2024 take 1 capsule by mouth once daily celecoxib (CELEBREX) 200 mg capsule Take 1 capsule by mouth once daily. 30 capsule 1 10/01/2024 Active dextromethorphan hydrobromide 1 mg/ml / guaiFENesin 20 mg/ml oral solution (20 sources) Uncompetitive F-fbnyvy-X-aspartate Receptor Antagonist, Sigma-1 Agonist Start: 06-10-2024 take 10 mL by mouth every four hours as needed Dextromethorpha n-guaiFENesin (ROBITUSSIN COUGH-CHEST ESTEFANÍA DM) 5-100 mg/5 mL liqd Take 10 mL by mouth every 4 hours as needed. 237 mL 06/10/2024 Active Start: 01-01-2024 End: 01-01-2024 Dextromethorphan-Guaifenesin (Mucinex Dm) 30-600 mg tablet extended release 12 hr Discontinued 2 {tbl} PO Q12H January 01, 2024 12:00am January 01, 2024 9:02am doxepin 3 mg oral tablet (4 sources) Tricyclic Antidepressant Start: 03-15-2025 End: 04-12-2025 take 1 tablet by mouth once daily at bedtime, then take 2 tablets by mouth once daily at bedtime Doxepin 3 mg tab Take 1 tablet by mouth daily at bedtime for 14 days, THEN 2 tablets daily at bedtime for 14 days. 60 tablet 1 03/15/2025 04/12/2025 Active doxycycline hyclate 100 mg oral tablet (4 sources) Tetracycline-class Drug Start: 07-31-2024 End: 08-07-2024 take 1 tablet by mouth twice daily doxycycline (VIBRA-TABS) 100 mg tablet Indications: Bacterial pneumonia Take 1 tablet by mouth two times a day for 7 days. 14 tablet 07/31/2024 08/07/2024 Active escitalopram 10 mg oral tablet (13 sources) Serotonin Reuptake Inhibitor Start: 04-27-2021 take 2 tablets by mouth once daily Escitalopram Oxalate (Lexapro) 10 mg tablet Active 20 MG PO DAILY April 27, 2021 10:36am Start: 03-09-2021 End: 04-27-2021 take 1 tablet by mouth once daily Escitalopram Oxalate (Lexapro) 10 mg tablet Discontinued 10 mg PO DAILY March 09, 2021 12:00am April 27, 2021 10:40am fluconazole 150 mg oral tablet (1 source) Azole Antifungal Start: 06-03-2024 End: 06-04-2024 take 1 tablet by mouth once daily fluconazole (DIFLUCAN) 150 mg tablet Indications: Dysuria Take 1 tablet by mouth once daily for 1 day. 1 tablet 06/03/2024 06/04/2024 Active fluticasone propionate 0.05 mg/actuat metered dose nasal spray (20 sources) Corticosteroid Start: 04-17-2023 End: 01-01-2024 take 50 ug nasal route once daily as needed Fluticasone Propionate (Flonase Allergy Relief) 50 mcg/actuation spray,suspension Active 2 NMA INTRANASAL DAILY as needed for allergies January 01, 2024 8:42am administer into each nostril Start: 04-17-2023 End: 01-01-2024 take 1 spray(s) nasal route once daily Fluticasone Propionate (Flonase Allergy Relief) 50 mcg/actuation spray,suspension Active 2 SPRAY INTRANASAL DAILY January 01, 2024 8:42am administer into each nostril Start: 02-15-2023 End: 10-01-2023 take 2 spray(s) by mouth once daily fluticasone (FLONASE) 50 mcg/actuation nasal spray Indications: Runny nose Use 2 Sprays in each nostril once daily. Rinse mouth after use. 11.1 mL 02/15/2023 10/01/2023 Discontinued Start: 12-22-2018 End: 04-27-2021 Fluticasone Propionate 50 mcg/actuation spray,suspension Discontinued 2 NMA INTRANASAL DAILY October 12, 2019 11:25am April 27, 2021 10:39am Start: 12-22-2018 End: 04-27-2021 Fluticasone Propionate Disco ntinued 2 SPRAY INTRANASAL DAILY October 12, 2019 11:25am April 27, 2021 10:39am Comment on above: Use 2 Sprays in each nostril once daily. Rinse mouth after use. Folic Acid (20 sources) End: 09-27-2022 take 1 tablet by mouth once daily folic acid 1 mg tablet Take 1 mg by mouth once daily. rx has B12 in it 09/27/2022 Discontinued FOLIC ACID ORAL Take by mouth as directed. Active FOLIC ACID ORAL Take by mouth as directed. 0 Active Comment on above: Take 1 mg by mouth o nce daily. rx has B12 in it Take by mouth as dir ected. guaiFENesin 1200 mg oral tablet (5 sources) Start: 01-01-2024 take 1200 mg by mouth every twelve hours Guaifenesin Active 1200 MG PO Q12H 60 January 01, 2024 12:00am Start: 01-01-2024 End: 07-21-2024 take 1 tablet by mouth every twelve hours Guaifenesin 1,200 mg tablet extended release 12hr Discontinued 1200 mg PO Q12H 60 January 01, 2024 12:00am July 21, 2024 12:03pm Ipratropium [place] 42 mcg ( 0.06 %) spray,non-aerosol (4 sources) Start: 09-15-2024 Ipratropium [place] 42 mcg (0.06 %) spray,non-aerosol Active 2 NMA INTRANASAL THREE TIMES A DAY September 15, 2024 1:00am administer into each nostril iv contrast (will be provide d with radiology test) (4 sources) Start: 03-26-2024 End: 03-27-2024 iv contrast (will be provide d with radiology test) Indications: Fall, initial encounter , Acute pain of left shoulder MRI shoulder Lt Inject, intravenously, once for 1 dose. No IV access, insert saline lock prior to the beginning of sedation, infusion, injection of imaging exam. Discontinue saline lock post exam. If Pt. has a central line or IVAD, may access for administration according to line specific nursing protocol. Once exam is complete flush line and de-access according to line specific nursing protocol in the MR contrast administration guidelines link. 1 Each 0 03/26/2024 03/27/2024 Active Start: 02-15-2023 End: 02-16-2023 inject 50 doses intravenously once iv contrast (will be provided with radiology test) Indications: New onset of headaches after age 51 CTA Head W IVCON No IV access, insert saline lock prior to the sedation, infusion, injection for imaging exam. Discontinue saline lock post exam. If Pt. has a central line or IVAD, may access for administration according to line specific nursing protocol. Once exam is complete flush line and de-access according to line specific nursing protocol in the CT contrast administration guidelines link. 1 Each 0 02/15/2023 02/16/2023 Active Start: 12-04-2022 End: 12-05-2022 iv contrast (will be provide d with radiology test) Indications: Ex-smoker , Weight loss, unintentional CT ABD/PEL -Inject, intravenously, once for 1 dose.No IV access, insert saline lock prior to the beginning of sedation, infusion, injection of imaging exam. Discontinue saline lock post exam. If Pt. has a central line or IVAD, may access for administration according to line specific nursing protocol. Once exam is complete flush line and de-access according to line specific nursing protocol in the CT contrast administration guidelines link. 1 Each 0 12/04/2022 12/05/2022 Start: 12-04-2022 End: 12-05-2022 iv contrast (will be provide d with radiology test) Indications: Ex-smoker , Weight loss, unintentional CT ABD/PEL -Inject, intravenously, once for 1 dose.No IV access, insert saline lock prior to the beginning of sedation, infusion, injection of imaging exam. Discontinue saline lock post exam. If Pt. has a central line or IVAD, may access for administration according to line specific nursing protocol. Once exam is complete flush line and de-access according to line specific nursing protocol in the CT contrast administration guidelines link. 1 Each 0 12/04/2022 12/05/2022 Active Comment on above: CT ABD/PEL -Inject, intravenously, once for 1 dose.No IV access, insert saline lock prior to the beginning of sedation, infusion, injection of imaging exam. Discontinue saline lock post exam. If Pt. has a central line or IVAD, may access for administration according to line specific nursing protocol. Once exam is complete flush line and de-access according to line specific nursing protocol in the CT contrast administration guidelines link. CTA Head W IVCON No IV access, insert saline lock prior to the sedation, infusion, injection for imaging exam. Discontinue saline lock post exam. If Pt. has a central line or IVAD, may access for administration according to line specific nursing protocol. Once exam is complete flush line and de-access according to line specific nursing protocol in the CT contrast administration guidelines link. methylPREDNISolone (3 sources) Corticosteroid Start : 06-08 End: 06-14 methylPREDNISolone (MEDROL, NASEEM,) 4 mg Dose-Pack Follow dosing instructions, take with food. 21 tablet 0 06/08/2023 06/14/2023 Active Comment on above: Follow dosing instru ctions, take with food. nitrofurantoin, macrocrystals 25 mg / nitrofurantoin, monohydrate 75 mg oral capsule (3 sources) Nitrofuran Antibacterial Start : 06-05 End: 06-12 take 1 capsule by mouth twice daily at mealtime nitrofurantoin monohydrate and macrocrystal (MACROBID) 100 mg capsule Take 1 capsule by mouth two times a day with meals for 7 days. 14 capsule 06/05/2024 06/12/2024 Active omeprazole 40 mg delayed release oral capsule (20 sources) Proton Pump Inhibitor Start : 02-23 End: 12-17 take 1 capsule by mouth once daily omeprazole (PRILOSEC) 40 mg capsule Take 1 capsule by mouth once daily. 90 capsule 3 03/16/2024 Active Start: 12-10-2019 End: 01-27-2021 take 1 capsule by mouth once daily omeprazole (PRILOSEC) 40 mg capsule Take 1 capsule by mouth once daily. 90 capsule 3 09/05/2020 01/27/2021 Discontinued (Clinical Decision) Comment on above: Take 1 capsule by [facility] once daily. ondansetron 4 mg oral tablet (3 sources) Serotonin-3 Receptor Antagonist Start: take 2 tablets by mouth every two hours as needed, then take 1 tablet by mouth every four hours as needed Ondansetron Hcl 4 mg tablet Active 4 mg PO .COMPLEX 5 December 17, 2024 12:00am 4 mg orally; take two tablets PO two hours prior to start of bowel prep and one every 4 hours as needed for N/V perflutren lipid microspheres 1.3 mL in NaCl (PF) 0.9% 10 mL injection (DEFINITY) (1 source) Start: End: 4 perflutren lipid microspheres 1.3 mL in NaCl (PF) 0.9% 10 mL injection (DEFINITY) polyethylene glycol 3350 408913 mg / potassium chloride 2970 mg / sodium bicarbonate 6740 mg / sodium chloride 5860 mg / sodium sulfate 00074 mg powder for oral solution (3 sources) Osmotic Laxative Start: 5 Peg 3350-Electrolytes (Golytely) 236-22.74-6.74 -5.86 gram recon soln Active 240 mL PO Q10M 4000 December 21, 2024 12:00am take as directed for split dose bowel prep predniSONE 10 mg oral tablet (20 sources) Start: End: take 3 tablets by mouth once daily, then take 2 tablets by mouth once daily, then take 1 tablet by mouth once daily predniSONE (DELTASONE) 10 mg tablet Indications: Acute cough Take 3 tablets by mouth once daily for 3 days, THEN 2 tablets once daily for 3 days, THEN 1 tablet once daily for 3 days. 18 tablet 07/31/2024 08/08/2024 Active Start: 12-22-2023 End: 12-27-2023 take 2 tablets by mouth once daily predniSONE (DELTASONE) 20 mg tablet Take 2 tablets by mouth once daily for 5 days. 10 tablet 0 12/22/2023 12/27/2023 Active Start: 07-05-2023 End: 01-01-2024 Prednisone 10 mg tablet Disc ontinued 10 mg PO daily December 25, 2023 8:01am January 01, 2024 9:01am take 4 tabs for three days, then 3 tabs for three days, then 2 tabs for three days, then 1 tab for 3 days Start: 07-05-2022 End: 02-25-2023 Prednisone 10 mg tablet Disc ontinued 10 mg PO daily July 05, 2022 12:00am February 25, 2023 9:30am take 4 tabs for three days, then 3 tabs for three days, then 2 tabs for three days, then 1 tab for 3 days Start: 07-04-2022 End: 07-09-2022 take 3 tablets by mouth once daily predniSONE (DELTASONE) 10 mg tablet Take 3 tablets by mouth once daily for 5 days. 15 tablet 0 07/04/2022 07/09/2022 Active Start: 01-10-2022 End: 01-15-2022 take 2 tablets by mouth once daily predniSONE (DELTASONE) 20 mg tablet Take 2 tablets by mouth once daily for 5 days. 10 tablet 0 01/10/2022 01/15/2022 Active Start: 06-23-2020 End: 01-23-2021 Prednisone 10 mg tablet Disc ontinued 10 mg PO daily January 04, 2021 12:00am January 23, 2021 11:38am take 4 tabs for three days, then 3 tabs for three days, then 2 tabs for three days, then 1 tab for 3 days Comment on above: Take 2 tablets by mo uth once daily for 5 days. Take 3 tablets by mo uth once daily for 5 days. QUEtiapine 25 mg oral tablet (20 sources) Atypical Antipsychotic Start: take 1 tablet by mouth at bedtime Quetiapine 25 mg tablet Active 25 mg PO AT BEDTIME February 09, 2025 12:00am Start: 01-05-2025 End: 03-15-2025 take 1 tablet by mouth at bedtime Quetiapine 50 mg tablet Active 50 mg PO AT BEDTIME February 09, 2025 12:00am Start: 10-01-2024 End: 01-05-2025 take 1 tablet by mouth once daily at bedtime QUEtiapine (SEROQUEL) 25 mg tablet Take 1 tablet by mouth daily at bedtime. 30 tablet 1 11/09/2024 01/05/2025 Discontinued 125 ml sodium chloride 9 mg/ml prefilled syringe (1 source) Start: 10-01-2023 End: 10-08-2023 sodium chloride 0.9 % (flush) 10 mL (BD POSIFLUSH) traZODone hydrochloride 150 mg oral tablet (20 sources) Serotonin Reuptake Inhibitor Start: 03-07-2023 End: 03-22-2025 take 1 tablet by mouth once daily at bedtime traZODone (DESYREL) 150 mg tablet Take 1 tablet by mouth daily at bedtime. 90 tablet 1 03/22/2025 Active Start: 08-29-2022 End: 02-20-2023 take 1 tablet by mouth once daily at bedtime traZODone (DESYREL) 150 mg tablet Take 1 tablet by mouth daily at bedtime. 90 tablet 1 08/29/2022 02/20/2023 Discontinued Start: 04-30-2022 End: 08-27-2022 take 1 tablet by mouth once daily at bedtime traZODone (DESYREL) 150 mg tablet Take 1 tablet by mouth daily at bedtime. 90 tablet 1 04/30/2022 08/27/2022 Discontinued Start: 05-20-2018 End: 07-21-2024 take 1 tablet by mouth at bedtime Trazodone 100 MG tablet Discontinued 100 mg PO AT BEDTIME May 20, 2018 12:00am July 21, 2024 12:04pm Start: 03-17-2017 End: 01-29-2018 take 50-100 mg by mouth at bedtime Trazodone 50 MG tablet Discontinued 50 - 100 mg PO AT BEDTIME March 17, 2017 12:00am January 29, 2018 3:39pm Start: 03-17-2017 End: 01-29-2018 take 50-100 mg by mouth at bedtime Trazodone Discontinued 50 - 100 MG PO AT BEDTIME March 17, 2017 12:00am January 29, 2018 3:39pm Comment on above: Take 1 tablet by [place] daily at bedtime. vitamin b12 2.5 mg oral tablet (11 sources) Vitamin B12 Start: 04-27-2021 take 1 tablet by mouth once daily Cyanocobalamin (Vitamin B-12) 2,500 mcg tablet Active 2500 ug PO DAILY April 27, 2021 12:00am Vitamin A20-Zijet Acid (Folic Acid Plus B12) 1-0.8 mg Tablet (1 source) Start: 03-17-2022 take 1 tablet by mouth once daily Vitamin L41-Wufmt Acid (Folic Acid Plus B12) 1-0.8 mg Tablet Active 1 TABLET PO DAILY March 17, 2022 12:00am Zinc (20 sources) ZINC ORAL Take b y mouth as directed. Active ZINC ORAL Take b y mouth as directed. 0 Active Comment on above: Take by mouth as dir ected. Completed/Discontinued Medications Medication Drug Class(es) Dates Sig (Normalized) Sig (Original) amoxicillin 875 mg / clavulanate 125 mg oral tablet (20 sources) Penicillin-class Antibacterial Start: 01-01-2024 End: 07-21-2024 Amoxicillin-Pot Clavulanate 875-125 mg tablet Discontinued 1 {tbl} PO TWICE A DAY January 01, 2024 12:00am July 21, 2024 12:03pm Start: 01-01-2024 take 1 tablet by [place] [facility] twice daily Amoxicillin-Pot Clavulanate Active 1 TABLET PO TWICE A DAY January 01, 2024 12:00am Start: 07-05-2023 End: 12-25-2023 Amoxicillin-Pot Clavulanate 875-125 mg tablet Discontinued 1 {tbl} PO TWICE A DAY July 05, 2023 12:00am December 25, 2023 8:02am Start: 07-05-2023 End: 12-25-2023 take 1 tablet by mouth twice daily Amoxicillin-Pot Clavulanate Discontinued 1 TABLET PO TWICE A DAY July 05, 2023 12:00am December 25, 2023 8:02am Start: 01-04-2021 End: 01-23-2021 Amoxicillin-Pot Clavulanate (Augmentin) 875-125 mg tablet Discontinued 1 {tbl} PO TWICE A DAY January 04, 2021 12:00am January 23, 2021 11:38am baclofen 10 mg oral tablet (20 sources) gamma-Aminobutyric Acid-ergic Agonist Start: 10-15-2023 End: 04-14-2024 take 1 tablet by mouth every eight hours as needed baclofen 10 mg tablet Take 1 tablet by mouth three times a day as needed (muscle spasms). 30 tablet 10/15/2023 04/14/2024 Discontinued Start: 05-14-2023 End: 10-01-2023 take 1 tablet by mouth every eight hours as needed baclofen 10 mg tablet Take 1 tablet by mouth three times daily as needed (muscle spasms). 30 tablet 05/14/2023 10/01/2023 Discontinued Comment on above: Take 1 tablet by [facility] three times daily as needed (muscle spasms). Take 1 tablet by [facility] three times a day as needed (muscle spasms). benzonatate 100 mg oral capsule (20 sources) Non-narcotic Antitussive Start: End: take 2 capsules by mouth every eight hours as needed benzonatate (TESSALON PERLES) 100 mg capsule Take 2 capsules by mouth three times a day as needed. 30 capsule 12/22/2023 04/14/2024 Discontinued Start: 06-08-2023 End: 04-14-2024 take 1 capsule by mouth every eight hours as needed Benzonatate 200 mg capsule Take 1 capsule by mouth three times a day as needed. 45 capsule 1 06/08/2023 04/14/2024 Discontinued Comment on above: Take 1 capsule by mo [facility] three times a day as needed. Take 2 capsules by m [facility] three times a day as needed. busPIRone hydrochloride 15 mg oral tablet (11 sources) Start: End: take 1 tablet by mouth twice daily Buspirone 15 mg tablet Discontinued 15 mg PO TWICE A DAY February 23, 2021 12:00am March 09, 2021 1:15pm calcium carbonate 1500 mg / cholecalciferol 500 unt oral capsule (20 sources) Vitamin D Start: End: Calcium Carbonate-Vitamin D3 (Calcium 600 With Vitamin D3) 600 mg(1,500mg) -500 unit capsule Discontinued 2 NMA PO DAILY April 27, 2021 12:00am June 01, 2023 1:21am Start: 04-27-2021 End: 06-01-2023 take 2 capsules by mouth once daily Calcium Carbonate-Vitamin D3 (Calcium 600 With Vitamin D3) 600 mg(1,500mg) -500 unit capsule Discontinued 2 CAP PO DAILY April 27, 2021 12:00am June 01, 2023 1:21am Start: 2007 take 1 tablet by [place] [facility] once daily Calcium Carb-Cholecalciferol (CALCIUM 600 WITH VITAMIN D3) 600-200 mg-unit ORAL Tab Take one(1) tablet two(2) times daily. 0 2007 Active Comment on above: Take one(1) tablet t wo(2) times daily. cetirizine hydrochloride 10 mg oral tablet (20 sources) Histamine-1 Receptor Antagonist Start: 02-16-20 End: 06-05-20 take 1 tablet by mouth once daily cetirizine (ZYRTEC) 10 mg tablet Indications: Runny nose Take 1 tablet by mouth once daily. 90 tablet 02/15/2023 06/05/2024 Discontinued (Course of therapy completed) Comment on above: Take 1 tablet by [place] [facility] once daily. cholecalciferol 0.125 mg oral tablet (11 sources) Vitamin D Start: 02-24-20 End: 02-26-20 take 1 tablet by mouth once daily Cholecalciferol (Vitamin D3) (Vitamin D3) 125 mcg (5,000 unit) Tablet Discontinued 125 ug PO DAILY February 23, 2021 12:00am February 25, 2023 9:30am 1 ml denosumab 60 mg/ml prefilled syringe (20 sources) RANK Ligand Inhibitor Start: 02-28-20 End: 10-01-19 denosumab (PROLIA) 60 mg/mL 60 mg once every 6 months, per Endo: Dr. mckee 02/27/2023 10/01/2023 Discontinued (Cost of medication) Start: 02-25-2023 End: 06-01-2023 Denosumab (Prolia) 60 mg/mL syringe Discontinued 60 mg SC every 6 months February 25, 2023 12:00am June 01, 2023 1:22am Comment on above: 60 mg once every 6 m ont, per Endo: Dr. mckee enteric contrast (will be provided with radiology test) (2 sources) Start: 12-04-2022 End: 12-05-2022 enteric contrast (will be provided with radiology test) Indications: Ex-smoker , Weight loss, unintentional For CT ABD/PEL W IVCON Routine order Administer, As Directed One Time Only, via Oral, Rectal, both Oral and Rectal, Enteric Tube, Stoma or Indwelling Catheter, Enteric Contrast as designated per enteric contrast guidelines 1 Each 0 12/04/2022 12/05/2022 Start: 12-04-2022 End: 12-05-2022 enteric contrast (will be pr ovided with radiology test) Indications: Ex-smoker , Weight loss, unintentional For CT ABD/PEL W IVCON Routine order Administer, As Directed One Time Only, via Oral, Rectal, both Oral and Rectal, Enteric Tube, Stoma or Indwelling Catheter, Enteric Contrast as designated per enteric contrast guidelines 1 Each 0 12/04/2022 12/05/2022 Active Comment on above: For CT ABD/PEL W IVC ON Routine order Administer, As Directed One Time Only, via Oral, Rectal, both Oral and Rectal, Enteric Tube, Stoma or Indwelling Catheter, Enteric Contrast as designated per enteric contrast guidelines Fluticasone-Umeclidin -Vilanter (20 sources) Anticholinergic, Corticosteroid, beta2-Adrenergic Agonist Start: 11-07-2018 End: 10-12-2019 Ggscnevmzxc-Ppjvwbwwu-Xpm anter (Trelegy Ellipta) 100-62.5-25 mcg blister with device Discontinued 1 NMA INHALATION DAILY November 07, 2018 2:57pm October 12, 2019 11:24am Start: 11-07-2018 End: 10-12-2019 Uchcnuzjppb-Qybvhoisr-Eqzdff er (Trelegy Ellipta) 100-62.5-25 mcg blister with device Discontinued 1 INH INHALATION DAILY November 07, 2018 2:57pm October 12, 2019 11:24am Start: 11-07-2018 End: 11-07-2018 Pzgkoznzfru-Dbuubgmed-Icueur er (Trelegy Ellipta) 100-62.5-25 mcg blister with device Discontinued 1 NMA INHALATION DAILY November 07, 2018 2:39pm November 07, 2018 2:57pm Start: 11-07-2018 End: 11-07-2018 Pzqeatnckru-Jjjtskmdh-Ruxqjt er (Trelegy Ellipta) 100-62.5-25 mcg blister with device Discontinued 1 INH INHALATION DAILY November 07, 2018 2:39pm November 07, 2018 2:57pm Start: 07-04-2018 End: 11-07-2018 Abufsfanxcb-Wvqmukhox-Iuunef er (Trelegy Ellipta) 100-62.5-25 mcg blister with device Discontinued 1 INH INHALATION DAILY July 04, 2018 3:42pm November 07, 2018 2:40pm Start: 07-04-2018 End: 11-07-2018 Wohzlgywtqw-Mohrrqapl-Rjfeky er (Trelegy Ellipta) 100-62.5-25 mcg blister with device Discontinued 1 NMA INHALATION DAILY July 04, 2018 12:00am November 07, 2018 2:40pm Start: 07-04-2018 End: 11-07-2018 Vcrwircnnqi-Trynyrowe-Utcwub er (Trelegy Ellipta) 100-62.5-25 mcg blister with device Discontinued 1 INH INHALATION DAILY July 04, 2018 12:00am November 07, 2018 2:40pm 30 actuat fluticasone furoate 0.1 mg/actuat / vilanterol 0.025 mg/actuat dry powder inhaler (20 sources) Corticosteroid, beta2-Adrenergic Agonist Start: 03-21-2018 End: 11-07-2018 Fluticasone Furoate-Vilanterol (Breo Ellipta) 100-25 mcg/dose blister with device Discontinued 1 NMA INHALATION Q24H 1 August 06, 2018 10:24am November 07, 2018 2:38pm after inhalation, rinse mouth with water and spit out; do not swallow Start: 03-21-2018 End: 11-07-2018 Fluticasone Furoate-Vilanter ol (Breo Ellipta) 100-25 mcg/dose blister with device Discontinued 1 INH INHALATION Q24H August 06, 2018 10:24am November 07, 2018 2:38pm after inhalation, rinse mouth with water and spit out; do not swallow hydrOXYzine hydrochloride 10 mg oral tablet (20 sources) Antihistamine Start: 09-27-2022 End: 03-15-2025 take 1 tablet by mouth once daily at bedtime hydrOXYzine HCl (ATARAX) 10 mg tablet Indications: Psychophysiological insomnia Take 1 tablet by mouth daily at bedtime. 90 tablet 3 11/02/2024 03/15/2025 Discontinued Comment on above: Take 1 tablet by [place] daily at bedtime. lidocaine hydrochloride 0.02 mg/mg topical gel (2 sources) Antiarrhythmic, Amide Local Anesthetic Start: 01-20-2020 End: 01-27-2021 lidocaine (XYLOCAINE) 2 % jelly Indications: Herpes simplex vulvovaginitis Apply 1 application to affected area three times daily. 1 Tube 1 01/20/2020 01/27/2021 Discontinued (Discontinued by Patient) LORazepam 1 mg oral tablet (2 sources) Benzodiazepine Start: 12-08-2020 End: 12-29-2020 take 1 tablet by mouth once daily as needed for anxiety LORazepam (ATIVAN) 1 mg tablet Indications: Situational anxiety Take 1 tablet by mouth once daily as needed for Anxiety for up to 30 days. 30 tablet 12/08/2020 12/29/2020 Discontinued Start: 07-21-2020 End: 08-09-2020 take 1 tablet by mouth once daily as needed for anxiety LORazepam (ATIVAN) 1 mg tablet Indications: Situational anxiety Take 1 tablet by mouth once daily as needed for Anxiety for up to 14 days. 14 tablet 07/21/2020 08/09/2020 Discontinued melatonin 5 mg oral capsule (20 sources) Start: 10-01-2024 End: 03-15-2025 take 2 capsules by mouth once daily at bedtime Melatonin 5 mg cap Take 2 capsules by mouth daily at bedtime. 10/01/2024 03/15/2025 Discontinued Start: 05-20-2018 take 1 tablet by [place] at bedtime Melatonin 10 MG tablet Active 10 mg PO AT BEDTIME May 20, 2018 12:00am Start: 09-26-2017 End: 10-01-2024 take 1 capsule by mouth every two hours at bedtime Melatonin 5 mg cap 5 mg by mouth taken 2 hours prior to bedtime 180 capsule 3 09/26/2017 10/01/2024 Discontinued (Adjust Sig - Block E-Cancel) Comment on above: 5 mg by mouth taken 2 hours prior to bedtime montelukast 10 mg oral tablet (20 sources) Leukotriene Receptor Antagonist Start: End: take 1 tablet by mouth once daily in the evening Montelukast 10 mg tablet Discontinued 10 mg PO EVERY EVENING 90 November 25, 2023 2:21pm October 19, 2024 11:50am multivit-min/folic acid/[id number] (ALIVE WOMEN'S GUMMY VITAMINS ORAL) (2 sources) End: multivit-min/folic acid/[id number] (ALIVE WOMEN'S GUMMY VITAMINS ORAL) Take by mouth. 01/27/2021 Discontinued (Discontinued by Patient) nabumetone 500 mg oral tablet (2 sources) Nonsteroidal Anti-inflammatory Drug Start: End: take 1 tablet by mouth twice daily at mealtime nabumetone (RELAFEN) 500 mg tablet Indications: Biceps tendonitis on right Take 1 tablet by mouth twice daily. TAKE WITH FOOD 60 tablet 2 08/11/2019 01/27/2021 Discontinued (Discontinued by Patient) nortriptyline 10 mg oral capsule (10 sources) Tricyclic Antidepressant Start: 023 End: take 1 capsule by mouth once daily at bedtime nortriptyline (PAMELOR) 10 mg capsule Take 1 capsule by mouth daily at bedtime. 30 capsule 0 02/26/2023 05/14/2023 Discontinued Comment on above: Take 1 capsule by mo ut daily at bedtime. nystatin [id number] unt/ml oral suspension (11 sources) Polyene Antifungal Start: End: Nystatin 100,000 unit/mL suspension Discontinued 15 mL MUCOUS MEM THREE TIMES A DAY 250 December 22, 2018 12:00am April 27, 2021 10:39am swish and swallow 15 cc three times per day for 10 days Start: 12-22-2018 End: 04-27-2021 Nystatin Discontinued 15 ML MUCOUS MEM THREE TIMES A DAY 250 December 22, 2018 12:00am April 27, 2021 10:39am swish and swallow 15 cc three times per day for 10 days 24 hr oxybutynin chloride 5 mg extended release oral tablet (2 sources) Cholinergic Muscarinic Antagonist Start: 04-30-2022 End: 05-08-2022 take 1 tablet by mouth once daily oxybutynin XL (DITROPAN XL) 5 mg 24 hr tablet Take 1 tablet by mouth once daily. 90 tablet 1 04/30/2022 05/08/2022 Discontinued Comment on above: Take 1 tablet by [place] [facility] once daily. Peg 3350-Sod Sulf,Wmwr-Pus-Ehd (Suflave) 178.7-7.3-0.5 gram recon soln (3 sources) Start: 12-17-2024 End: 12-21-2024 Peg 3350-Sod Sulf,Rodq-Rfo-Ucw (Suflave) 178.7-7.3-0.5 gram recon soln Discontinued 0 PO .COMPLEX 2 December 17, 2024 12:00am December 21, 2024 5:32pm take as directed for split dose bowel prep penicillin v potassium 500 mg oral tablet (17 sources) Start: 03-16-2024 End: 06-05-2024 penicillin V potassium 500 mg tablet Take 500 mg by mouth. 03/16/2024 06/05/2024 Discontinued (Course of therapy completed) phenazopyridine hydrochloride 100 mg oral tablet (12 sources) Start: 06-05-2024 End: 08-03-2024 take 1 tablet by mouth every eight hours as needed phenazopyridine (PYRIDIUM) 100 mg tablet Take 1 tablet by mouth three times a day as needed. 6 tablet 06/05/2024 08/03/2024 Discontinued 60 actuat tiotropium 0.0025 mg/actuat inhalation spray (20 sources) Anticholinergic Start: 01-06-2020 End: 02-25-2023 take 2.5 ug by inhalation once daily Tiotropium [place] (Spiriva Respimat) 2.5 mcg/actuation mist Discontinued 2 NMA INHALATION daily December 06, 2021 1:31pm March 17, 2022 11:10pm administer at approximately the same time(s) each day Start: 01-06-2020 End: 02-25-2023 take 1 puff(s) by inhalation once daily Tiotropium [place] (Spiriva Respimat) 2.5 mcg/actuation mist Discontinued 2 PUFF INHALATION daily December 06, 2021 1:31pm March 17, 2022 11:10pm administer at approximately the same time(s) each day Start: 10-12-2019 End: 01-06-2020 take 2.5 ug by inhalation once daily Tiotropium [place] (Spiriva Respimat) 2.5 mcg/actuation mist Discontinued 2 NMA INHALATION daily October 12, 2019 11:25am January 06, 2020 1:01pm administer at approximately the same time(s) each day Start: 10-12-2019 End: 01-06-2020 take 1 puff(s) by inhalation once daily Tiotropium [place] (Spiriva Respimat) 2.5 mcg/actuation mist Discontinued 2 PUFF INHALATION daily October 12, 2019 11:25am January 06, 2020 1:01pm administer at approximately the same time(s) each day Start: 09-21-2019 End: 10-12-2019 take 2.5 ug by inhalation once daily Tiotropium [place] (Spiriva Respimat) 2.5 mcg/actuation mist Discontinued 2 NMA INHALATION daily September 21, 2019 1:27pm October 12, 2019 11:26am administer at approximately the same time(s) each day Start: 09-21-2019 End: 10-12-2019 take 1 puff(s) by inhalation once daily Tiotropium [place] [place] (Spiriva Respimat) 2.5 mcg/actuation mist Discontinued 2 PUFF INHALATION daily September 21, 2019 1:27pm October 12, 2019 11:26am administer at approximately the same time(s) each day Start: 09-14-2019 End: 09-21-2019 take 2.5 ug by inhalation once daily Tiotropium [place] (Spiriva Respimat) 2.5 mcg/actuation mist Discontinued 2 NMA INHALATION daily September 14, 2019 4:34pm September 21, 2019 1:27pm administer at approximately the same time(s) each day Start: 09-14-2019 End: 09-21-2019 take 1 puff(s) by inhalation once daily Tiotropium [place] (Spiriva Respimat) 2.5 mcg/actuation mist Discontinued 2 PUFF INHALATION daily September 14, 2019 4:34pm September 21, 2019 1:27pm administer at approximately the same time(s) each day Start: 09-14-2019 End: 09-14-2019 take 2.5 ug by inhalation once daily Tiotropium [place] (Spiriva Respimat) 2.5 mcg/actuation mist Discontinued 2 NMA INHALATION daily September 14, 2019 4:32pm September 14, 2019 4:34pm administer at approximately the same time(s) each day Start: 09-14-2019 End: 09-14-2019 take 1 puff(s) by inhalation once daily Tiotropium [place] (Spiriva Respimat) 2.5 mcg/actuation mist Discontinued 2 PUFF INHALATION daily September 14, 2019 4:32pm September 14, 2019 4:34pm administer at approximately the same time(s) each day Start: 02-04-2019 End: 09-14-2019 take 2.5 ug by inhalation once daily Tiotropium [place] (Spiriva Respimat) 2.5 mcg/actuation mist Discontinued 2 NMA INHALATION daily February 04, 2019 12:06pm September 14, 2019 4:32pm administer at approximately the same time(s) each day Start: 02-04-2019 End: 09-14-2019 take 1 puff(s) by inhalation once daily Tiotropium [place] (Spiriva Respimat) 2.5 mcg/actuation mist Discontinued 2 PUFF INHALATION daily February 04, 2019 12:06pm September 14, 2019 4:32pm administer at approximately the same time(s) each day Start: 02-04-2019 End: 02-04-2019 take 2.5 ug by inhalation once daily Tiotropium [place] (Spiriva Respimat) 2.5 mcg/actuation mist Discontinued 2 NMA INHALATION daily February 04, 2019 12:05pm February 04, 2019 12:07pm administer at approximately the same time(s) each day Start: 02-04-2019 End: 02-04-2019 take 1 puff(s) by inhalation once daily Tiotropium [place] (Spiriva Respimat) 2.5 mcg/actuation mist Discontinued 2 PUFF INHALATION daily February 04, 2019 12:05pm February 04, 2019 12:07pm administer at approximately the same time(s) each day Start: 12-22-2018 End: 10-01-2023 SPIRIVA RESPIMAT 2.5 mcg/act uation inhaler 12/22/2018 10/01/2023 Discontinued Start: 12-22-2018 End: 02-04-2019 take 1 puff(s) by inhalation once daily Tiotropium [place] (Spiriva Respimat) 2.5 mcg/actuation mist Discontinued 2 PUFF INHALATION daily December 22, 2018 10:48am February 04, 2019 12:05pm administer at approximately the same time(s) each day Start: 12-22-2018 End: 02-04-2019 take 2.5 ug by inhalation once daily Tiotropium [place] (Spiriva Respimat) 2.5 mcg/actuation mist Discontinued 2 NMA INHALATION daily December 22, 2018 12:00am February 04, 2019 12:05pm administer at approximately the same time(s) each day Start: 12-22-2018 End: 02-04-2019 take 1 puff(s) by inhalation once daily Tiotropium [place] (Spiriva Respimat) 2.5 mcg/actuation mist Discontinued 2 PUFF INHALATION daily December 22, 2018 12:00am February 04, 2019 12:05pm administer at approximately the same time(s) each day 24 hr tolterodine tartrate 4 mg extended release oral capsule (20 sources) Cholinergic Muscarinic Antagonist Start: 05-08-2022 End: 09-27-2022 take 1 capsule by mouth once daily tolterodine ER (DETROL LA) 4 mg 24 hr capsule Take 1 capsule by mouth once daily. 30 capsule 5 05/08/2022 09/27/2022 Discontinued (Discontinued by Patient) Comment on above: Take 1 capsule by [facility] once daily. triamcinolone acetonide 40 mg/ml injectable suspension (1 source) Corticosteroid Start: 12-02-2018 End: 12-02-2018 [place]al[place] (triamcinolone acetonide) 40 mg/mL suspension for injection Discontinued 60 MG INTRAARTIC ONCE 1.5 December 02, 2018 12:35pm December 02, 2018 1:14pm Umeclidinium (20 sources) Anticholinergic Start: 05-20-2018 End: 11-07-2018 take 1 puff(s) by inhalation once daily Umeclidinium Discontinued 1 PUFF IH DAILY May 20, 2018 8:06am November 07, 2018 2:38pm Start: 05-20-2018 End: 11-07-2018 take 1 puff(s) by inhalation once daily Umeclidinium 1 PUFF inhaler Discontinued 1 NMA IH DAILY May 20, 2018 12:00am November 07, 2018 2:38pm Start: 05-20-2018 End: 11-07-2018 take 1 puff(s) by inhalation once daily Umeclidinium Discontinued 1 PUFF IH DAILY May 20, 2018 12:00am November 07, 2018 2:38pm Start: 03-25-2018 End: 03-31-2018 take 62.5 ug by inhalation once daily Umeclidinium (Incruse Ellipta) 62.5 mcg/actuation blister with device Discontinued 1 NMA INHALATION daily 3 March 25, 2018 12:00am March 31, 2018 1:35pm valACYclovir 1000 mg oral tablet (12 sources) Herpesvirus Nucleoside Analog DNA Polymerase Inhibitor, Herpes Simplex Virus Nucleoside Analog DNA Polymerase Inhibitor, Herpes Zoster Virus Nucleoside Analog DNA Polymerase Inhibitor Start: 12-10-2019 End: 09-05-2020 take 1 tablet by mouth once daily valACYclovir (VALTREX) 1 gram Take 1 tablet by mouth once daily. 90 tablet 3 12/10/2019 09/05/2020 Discontinued Start: 05-09-2016 End: 04-16-2022 take 1 tablet by mouth once daily Valacyclovir 1,000 MG tablet Discontinued 1000 mg PO DAILY May 09, 2016 12:00am April 16, 2022 9:10am Vitamin Q81-Qkrfy Acid (5 sources) Start: 03-17-2022 End: 02-25-2023 take 1 tablet by mouth once daily Vitamin M82-Uvoos Acid Discontinued 1 TABLET PO DAILY March 17, 2022 12:00am February 25, 2023 9:30am Start: 03-17-2022 take 1 tablet by [place] once daily Vitamin U72-Iobmu Acid Active 1 TABLET PO DAILY March 17, 2022 12:00am Vitamin Y42-Venxz Acid 1-0.8 mg Tablet (4 sources) Start: 03-17-2022 End: 02-25-2023 Vitamin M45-Odeft Acid 1-0.8 mg Tablet Discontinued 1 {tbl} PO DAILY March 17, 2022 12:00am February 25, 2023 9:30am Problems Active Problems Problem Classification Problem Date Documented Da te Episodic/Chronic Abdominal pain (20 sources) Abdominal pain; Translations: [Unspecified abdominal pain] Episodic Alcohol-related disorders (18 sources) Alcohol abuse; Translations: [Alcohol abuse, uncomplicated] 06-27-2018 Chronic Anxiety disorders (20 sources) Chronic anxiety; Translations: [Anxiety disorder, unspecified] Onset: 8 01-27-2021 Chronic Aortic; peripheral; and visceral artery aneurysms (20 sources) Ectasia of thoracic aorta; Translations: [Thoracic aortic ectasia] Onset: 3 12-04-2022 Chronic Asthma (8 sources) Asthma-chronic obstructive pulmonary disease overlap syndrome; Translations: [Asthma-chronic obstructive pulmonary disease overlap syndrome] 06-10-2023 Chronic Benign neoplasm of uterus (1 source) Uterine leiomyoma; Translations: [Leiomyoma of uterus, unspecified] Episodic Blindness and vision defects (20 sources) Blind right eye; Translations: [Blindness, one eye, unspecified eye] Onset: 1 01-27-2021 Chronic Chronic obstructive pulmonary disease and bronchiectasis (20 sources) Pulmonary emphysema; Translations: [Emphysema, unspecified] Onset: 5 01-27-2021 Chronic Chronic obstructive pulmonary disease and bronchiectasis (1 source) Bronchitis; Translations: [Bronchitis, not specified as acute or chronic] 06-08-2023 Episodic Coagulation and hemorrhagic disorders (2 sources) Easy bruising; Translations: [Spontaneous ecchymoses] Onset: 5 03-15-2025 Episodic Diseases of white blood cells (2 sources) Leukocytosis; Translations: [Elevated white blood cell count, unspecified] Chronic Esophageal disorders (20 sources) Obstruction of esophagus; Translations: [Esophageal obstruction] Onset: Chronic Essential hypertension (20 sources) Benign essential hypertension; Translations: [Essential (primary) hypertension] Onset: 5 01-27-2021 Chronic Genitourinary symptoms and ill-defined conditions (1 source) Dysuria; Translations: [Dysuria] 06-03-2024 Episodic Headache; including migraine (3 sources) Headache; Translations: [New onset of headaches after age 50] Episodic Immunizations and screening for infectious disease (2 sources) Suspected disease caused by 2019-nCoV; Translations: [Suspected COVID-19 virus infection] Episodic Intestinal obstruction without hernia (20 sources) Partial obstruction of small bowel; Translations: [Partial intestinal obstruction, unspecified as to cause] Episodic Menopausal disorders (20 sources) Atrophic vaginitis; Translations: [Postmenopausal atrophic vaginitis] Onset: 0 Resolved: 6 01-27-2021 Chronic Miscellaneous mental health disorders (12 sources) Psychophysiologic insomnia; Translations: [Psychophysiologic insomnia] Onset: Chronic Mood disorders (20 sources) Recurrent manic episodes, moderate; Translations: [Other bipolar disorder] Onset: 8 01-27-2021 Chronic Nausea and vomiting (20 sources) Nausea; Translations: [Nausea] Episodic Neoplasms of unspecified nature or uncertain behavior (2 sources) Thrombocytosis; Translations: [Thrombocytosis] Episodic Nervous system congenital anomalies (20 sources) Chiari malformation; 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] Onset: 5 08-28-2021 Chronic Osteoporosis (20 sources) Osteoporosis; Translations: [Age-related osteoporosis without current pathological fracture] Onset: 5 01-27-2021 Chronic Other bone disease and musculoskeletal deformities (2 sources) Clavicle pain; Translations: [Other specified disorders of bone, shoulder] 03-18-2024 Episodic Other circulatory disease (1 source) Nasal discharge; Translations: [Other specified symptoms and signs involving the circulatory and respiratory systems] Episodic Other circulatory disease (3 sources) Choking; Translations: [Other specified symptoms and signs involving the circulatory and respiratory systems] 10-01-2024 Episodic Other connective tissue disease (1 source) Disorder of rotator cuff; Translations: [Unspecified disorder of synovium and tendon, unspecified shoulder] 04-27-2024 Episodic Other diseases of bladder and urethra (20 sources) Overactive bladder; Translations: [Overactive bladder] Onset: 5 01-27-2021 Chronic Other diseases of bladder and urethra (1 source) Overactive bladder; Translations: [Overactive bladder] Onset: 5 Chronic Other female genital disorders (2 sources) Enlarged uterus; Translations: [Hypertrophy of uterus] Episodic Other gastrointestinal disorders (2 sources) Personal history of other diseases of the digestive system; Translations: [Personal history of other diseases of digestive system] 06-04-2023 Episodic Other gastrointestinal disorders (10 sources) Dysphagia; Translations: [Dysphagia, unspecified] Onset: 5 12-17-2024 Episodic Other gastrointestinal disorders (1 source) Dysphagia, unspecified; Translations: [Dysphagia, unspecified] Onset: 5 Episodic Other infections; including parasitic (12 sources) Disease caused by 2019-nCoV; Translations: [Post-COVID syndrome] Onset: 1 02-13-2021 Chronic Other infections; including parasitic (20 sources) Post-viral disorder; Translations: [Post-COVID syndrome] Onset: 1 02-13-2021 Chronic Other injuries and conditions due to external causes (1 source) Contusion; Translations: [Other injury of unspecified body region, initial encounter] Episodic Other injuries and conditions due to external causes (5 sources) Obstruction of esophagus; Translations: [Food in esophagus causing other injury, initial encounter] 06-10-2023 Episodic Other injuries and conditions due to external causes (2 sources) Injury of toe of right foot; Translations: [Unspecified injury of right foot, initial encounter] 01-05-2025 Episodic Other injuries and conditions due to external causes (1 source) Unspecified injury of left foot, initial encounter; Translations: [Injury of left toe, initial encounter] Onset: 5 Episodic Other injuries and conditions due to external causes (1 source) Unspecified injury of right foot, initial encounter; Translations: [Injury of right toe, initial encounter] Onset: 5 Episodic Other lower respiratory disease (11 sources) Dyspnea on exertion; Translations: [Dyspnea, unspecified] 06-27-2018 Episodic Other lower respiratory disease (1 source) Cough; Translations: [Cough] Episodic Other lower respiratory disease (8 sources) Nodule of lung; Translations: [Solitary pulmonary nodule] 04-16-2022 Episodic Other lower respiratory disease (1 source) Solitary pulmonary nodule; Translations: [Solitary pulmonary nodule] Episodic Other lower respiratory disease (2 sources) Rib pain; Translations: [Pleurodynia] 04-14-2024 Episodic Other lower respiratory disease (1 source) Respiratory tract infection; Translations: [Other specified respiratory disorders] 06-07-2024 Episodic Other lower respiratory disease (2 sources) Cough; Translations: [Acute cough] 07-31-2024 Episodic Other nervous system disorders (11 sources) Peripheral nerve disease ; Translations: [Polyneuropathy, unspecified] 06-27-2018 Chronic Other nervous system disorders (11 sources) Chronic pain syndrome; Translations: [Chronic pain syndrome] 06-27-2018 Chronic Other nervous system disorders (12 sources) Chronic low back pain; Translations: [Other chronic pain] Onset: 3 11-10-2024 Chronic Other nervous system disorders (1 source) Other chronic pain; Translations: [Chronic bilateral low back pain with sciatica, sciatica laterality unspecified] Onset: 4 Chronic Other nervous system disorders (1 source) Paresthesia of lower extremity; Translations: [Anesthesia of skin] 08-15-2023 Episodic Other non-traumatic joint disorders (2 sources) Pain in right shoulder; Translations: [Pain in joint, shoulder region] 10-15-2023 Episodic Other nutritional; endocrine; and metabolic disorders (1 source) Hypervitaminosis D; Translations: [Hypervitaminosis D] Chronic Other nutritional; endocrine; and metabolic disorders (3 sources) Weight loss; Translations: [Abnormal weight loss] Episodic Other nutritional; endocrine; and metabolic disorders (1 source) Unintentional weight loss; Translations: [Abnormal weight loss] Episodic Other skin disorders (1 source) Trachyonychia; Translations: [Nail dystrophy] Episodic Other skin disorders (1 source) Localized swelling, mass and lump, right upper limb; Translations: [Localized superficial swelling, mass, or lump] 06-11-2023 Episodic Other upper respiratory infections (13 sources) Posterior rhinorrhea; Translations: [Postnasal drip] 12-22-2018 Episodic Pneumonia (except that caused by tuberculosis or sexually transmitted disease) (1 source) Bacterial pneumonia; Translations: [Unspecified bacterial pneumonia] 07-31-2024 Episodic Poisoning by other medications and drugs (9 sources) Poisoning by vitamin D; Translations: [Poisoning by vitamins, accidental (unintentional), initial encounter] 02-25-2023 Episodic Residual codes; unclassified (11 sources) Finding related to sleep; Translations: [Sleep apnea, unspecified] 06-27-2018 Chronic Residual codes; unclassified (1 source) Pain; Translations: [Pain, unspecified] 12-18-2022 Episodic Residual codes; unclassified (6 sources) Family history of cancer of colon; Translations: [Family history of malignant neoplasm of digestive organs] 12-17-2024 Episodic Spondylosis; intervertebral disc disorders; other back problems (20 sources) Lumbar spondylosis; Translations: [Spondylosis without myelopathy or radiculopathy, lumbar region] Onset: 4 01-27-2021 Chronic Substance-related disorders (20 sources) Cigarette smoker ; Translations: [Nicotine dependence, cigarettes, uncomplicated] Onset: 5 Chronic Comment on above: [id number] smoking history quit completely in 2010, repeat LDCT December 2024 Substance-related disorders (7 sources) Finding related to substance use; Translations: [Cannabis use, unspecified, uncomplicated] 02-21-2023 Episodic Thyroid disorders (20 sources) Multinodular goiter; Translations: [Nontoxic multinodular goiter] Onset: 1 01-27-2021 Chronic Unclassified (7 sources) Chiari malformation; Translations: [Chiari malformation] 06-27-2018 Unclassified (1 source) Heavy alcohol use; Translations: [Heavy alcohol use] Onset: 1 Unclassified (1 source) Acute cough; Translations: [Acute cough] Onset: 4 Urinary tract infections (20 sources) Chronic interstitial cystitis; Translations: [Interstitial cystitis (chronic) without hematuria] Onset: 6 01-27-2021 Chronic Urinary tract infections (1 source) Acute cystitis; Translations: [Acute cystitis without hematuria] 06-05-2024 Episodic Past or Other Problems Problem Classification Problem Date Documented Da te Episodic/Chronic Adjustment disorders (20 sources) Adjustment disorder with depressed mood; Translations: [Adjustment disorder with depressed mood] Onset: 05-20-2006 Resolved: 09-21-2019 09-21-2019 Chronic Administrative/social admission (20 sources) Advance directive discussed with patient; Translations: [Other specified counseling] Onset: 09-27-2022 Episodic Allergic reactions (20 sources) Contact dermatitis; Translations: [Unspecified contact dermatitis, unspecified cause] Onset: 02-05-2008 Resolved: 12-07-2015 12-07-2015 Episodic Diabetes mellitus without complication (20 sources) Hyperglycemia; Translations: [Hyperglycemia, unspecified] Onset: 01-27-2021 01-27-2021 Episodic E Codes: Fall (8 sources) Fall; Translations: [Unspecified fall, initial encounter] Onset: 03-26-2024 03-18-2024 Episodic Nonspecific chest pain (20 sources) Tight chest; Translations: [Other chest pain] Onset: 12-15-2013 Resolved: 04-28-2014 Episodic Other aftercare (20 sources) Patient encounter status; Translations: [Other half-way (current) drug therapy] Onset: 01-27-2021 01-27-2021 Episodic Other aftercare (1 source) Other longwall shearer operator (current) drug therapy; Translations: [Medication management] Onset: 01-27-2021 Episodic Other circulatory disease (1 source) Other specified symptoms and signs involving the circulatory and respiratory systems; Translations: [Choking in adult] Onset: 10-01-2024 Episodic Other INTEGRATION PROJECT MANAGER infection and poliomyelitis (20 sources) Epidural abscess; Translations: [Extradural and subdural abscess, unspecified] Onset: 09-16-2013 Resolved: 04-28-2014 04-28-2014 Episodic Other connective tissue disease (20 sources) Biceps tendinitis; Translations: [Bicipital tendinitis, right shoulder] Onset: 08-11-2019 08-11-2019 Episodic Other connective tissue disease (20 sources) Soft tissue lesion of shoulder region; Translations: [Bursopathy, unspecified] Onset: 02-26-2009 Resolved: 12-07-2015 12-07-2015 Episodic Other connective tissue disease (20 sources) Nocturnal muscle cramp; Translations: [Cramp and spasm] Onset: 09-11-2016 Resolved: 09-21-2019 09-21-2019 Episodic Other gastrointestinal disorders (1 source) Other dysphagia; Translations: [Other dysphagia] Onset: 11-30-2024 Episodic Other infections; including parasitic (20 sources) Personal history of other infectious and parasitic diseases; Translations: [History of 2019 novel coronavirus disease (COVID-19)] Onset: 01-27-2021 01-27-2021 Episodic Other lower respiratory disease (20 sources) Multiple nodules of lung; Translations: [Other nonspecific abnormal finding of lung field] Onset: 05-30-2021 05-30-2021 Episodic Other lower respiratory disease (20 sources) Dyspnea; Translations: [Shortness of breath] Onset: 12-15-2013 Resolved: 04-28-2014 Episodic Other lower respiratory disease (20 sources) Lung mass; Translations: [Other nonspecific abnormal finding of lung field] Onset: 09-07-2011 Resolved: 09-21-2019 06-27-2018 Episodic Other lower respiratory disease (1 source) Pleurodynia; Translations: [Rib pain on right side] Onset: 04-14-2024 Episodic Other nervous system disorders (20 sources) Median nerve entrapment; Translations: [Carpal tunnel syndrome, unspecified upper limb] Onset: 10-10-2016 Resolved: 09-21-2019 09-21-2019 Chronic Other nervous system disorders (20 sources) Carpal tunnel syndrome of right wrist; Translations: [Carpal tunnel syndrome, right upper limb] Onset: 01-03-2017 Resolved: 09-21-2019 09-21-2019 Chronic Other non-traumatic joint disorders (20 sources) Shoulder joint pain; Translations: [Pain in unspecified shoulder] Onset: 07-26-2008 Resolved: 03-18-2017 03-18-2017 Episodic Other non-traumatic joint disorders (6 sources) Pain in left shoulder; Translations: [Pain in joint, shoulder region] Onset: 03-26-2024 03-18-2024 Episodic Other non-traumatic joint disorders (20 sources) Hip pain; Translations: [Pain in left hip] Onset: 09-29-2024 08-03-2024 Episodic Other non-traumatic joint disorders (2 sources) Pain in left hip; Translations: [Pain in left hip] Onset: 08-03-2024 Episodic Other screening for suspected conditions (not mental disorders or infectious disease) (20 sources) Finding related to measurement of toxic substance; Translations: [Abnormal level of other drugs, medicaments and biological substances in specimens from other organs, systems and tissues] Onset: 02-01-2021 02-01-2021 Episodic Other skin disorders (20 sources) Generalized hyperhidrosis; Translations: [Generalized hyperhidrosis] Onset: 05-20-2006 01-27-2021 Episodic Residual codes; unclassified (20 sources) Insomnia; Translations: [Insomnia, unspecified] Onset: 05-20-2006 01-27-2021 Episodic Residual codes; unclassified (20 sources) Heavy drinker ; Translations: [Other specified health status] Onset: 01-14-2013 01-27-2021 Episodic Residual codes; unclassified (20 sources) Active living will ; Translations: [Other specified health status] Onset: 09-27-2022 09-27-2022 Episodic Residual codes; unclassified (1 source) Family history of malignant neoplasm of digestive organs; Translations: [Family history of malignant neoplasm of digestive organs] Onset: 12-17-2024 Episodic Screening and history of mental health and substance abuse codes (20 sources) Ex-smoker; Translations: [Personal history of nicotine dependence] Onset: 01-27-2021 01-27-2021 Episodic Spondylosis; intervertebral disc disorders; other back problems (20 sources) Spinal stenosis of lumbar region; Translations: [Spinal stenosis, lumbar region without neurogenic claudication] Onset: 07-26-2008 Resolved: 09-21-2019 01-27-2021 Episodic Unclassified (2 sources) Injury of toe of right foot 01-05-2025 Viral infection (20 sources) Anogenital herpesviral infection; Translations: [Anogenital herpesviral infection, unspecified] Onset: 02-08-2016 Resolved: 09-21-2019 06-27-2018 Chronic Viral infection (20 sources) Herpes simplex; Translations: [Herpesviral infection, unspecified] Onset: 01-27-2021 01-27-2021 Episodic Results Test Name Value Interpretation Reference Range Facility MR/PATFadi 03-25-2025 MR/[facility] Medical Records Department [address] [place] [address] PAT - Anesthesia 03/25/25 1623 MR#: [id number] Acct: [id number] Name: BASIMBETHANYJENA Rep #: [id number] : [id number] 70 From: Humberto Gudino MD PCP: Dr. 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 When Was Last Pacemaker Check QUESTION #4 FULL TEXT: You/Your Family Experience fever (hyperthermia) with Anesthesia Last Oral Intake Last Oral intake: Last Oral Intake NPO since Meds taken in AM with sips of water? Meds patient instructed to take am of surgery PONV PONV - supercalender operator helper: PONV - supercalender operator helper Female Yes 03/25/25 16:02 HX of Motion Sickness No 03/25/25 16:02 HX of N/V After Surgery No 03/25/25 16:02 Non-Smoker Yes 03/25/25 16:02 Duration of Surgery greater No 03/25/25 16:02 than 60 minutes Number of Risk Factors 2 03/25/25 16:02 PONV Score Moderate Risk 03/25/25 16:02 Height Weight Height Weight: Anesthesia: Height Weight Height 4 ft 9 in 02/09/25 07:42 Respiratory Assessment Respiratory Assessment - supercalender operator helper: Respiratory Tract Infection Hx - supercalender operator helper Hx Respiratory Tract Infection No 03/25/25 16:02 STOP Sleep Apnea STOP Sleep Apnea - supercalender operator helper: STOP Sleep Apnea - supercalender operator helper Hx Hypertension Yes: PER PT, CONTROLLED ON 03/25/25 16:02 MEDS Hx Sleep Apnea No 03/25/25 16:02 CPAP Yes 06/30/18 07:52 BIPAP Yes 06/26/18 15:33 Do you snore loudly (louder No 03/25/25 16:02 than talking or can be heard Do you often feel tired/ No 03/25/25 16:02 fatigued/ sleepy during daytime? Has anyone observed you stop No 03/25/25 16:02 breathing during sleep? STOP Results Negative 03/25/25 16:02 QUESTION #5 FULL TEXT : Do you snore loudly (louder than talking or can be heard through closed doors)? 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 Specify any problems Hx of Preganancy in last 3 No 03/25/25 16:02 Months Nurse Filling Out Transfusion ASHLI 03/25/25 16:02 Questions: Date: 03/25/25 03/25/25 16:02 Time: 16:04 03/25/25 16:02 Patient unable to answer at this time (ie. confused, unrespo /Reproduction History /Reproductive History - supercalender operator helper: /Reproductive Hx- supercalender operator helper Hx Now No 03/25/25 16:02 Gestational Age (in weeks): EDC: Hx Hx Para Hx Section SAB No 03/25/25 16:02 [facility] Medical History (Updated 03/25/25 @ 16:13 by Dana Ang) Alcohol use Easy bruising Gastric reflux History of stress test History of echocardiogram History of abdominal aortic aneurysm Vitamin D toxicity Uterine fibroid Former smoker Asthma COPD (chronic obstructive pulmonary disease) Hypertension Partial small bowel obstruction COVID-19 HSV (herpes simplex virus) anogenital infection Overactive bladder Emphysema of lung Benign essential HTN Postmenopausal atrophic vaginitis Lung mass Climacteric Lumbar spinal stenosis Peripheral neuropathy Recurrent manic disorder Cervicalgia Generalized hyperhidrosis Chronic interstitial cystitis RODRIGUEZ (dyspnea on exertion) Anxiety associated with depression Chronic pain disorder Sleep-related breathing disorder Stage 2 mo (more content not included)... Normal [facility] 03-17-2025 [facility] Telephone (SHELBY[facility]) ----- ASHLEYDIONY Ortiz ([id number]) 1955 F Date Time Provider Department [facility] During your visit today, we recorded the following information about you: Albania Gill RN 03/17/2025 9:03 AM Signed Benito from [facility] calls with prior authorization questions for Doxepin. Questions Answered. Will fax results of prior authorization within 72 hours. Please Watch for response. PRIOR AUTHORIZATION Medication for Prior Authorization: Doxepin Insurance Company: [employer] Patient insurance ID number: [id number] ELDER Courtney Janice, LPN 03/17/2025 10:27 AM Signed Mariza CORREA rec'd. Did request PA electronically to review. Jacki Mark LPN 03/17/2025 10:28 AM Signed This was the PA response. Closed 03/17/2025 10:27 AM Close reason: Prior Authorization not required for patient/medication Note from payer: Available without authorization. The member is able to fill the requested drug at the pharmacy. If coverage is still needed or requesting prior to the expiration of a current authorization, a request can be made by sending a fax or calling the number on the back of the member's ID card. - Prescriber details have been updated to match the prescriber directory. Allergies As of Date: 03/17/2025 Noted Allergy Reaction FISH 06/23/2005 16 - Unknown HORSE/EQUINE CONTAINING PRODUCTS 08/30/2023 16 - Unknown LISINOPRIL 12/07/2015 3 - Cough SHELLFISH DERIVED 08/30/2023 16 - Unknown Date Reviewed: 03/15/2025 Reviewed by: Melita Le LPN - Fully Assessed Reason for Visit: Insurance Authorization [[id number]] Prescriptions as of 03/17/2025 - Doxepin 3 mg tab Take 1 tablet by mouth daily at bedtime for 14 days, THEN 2 tablets daily at bedtime for 14 days. - alendronate (FOSAMAX) 70 mg tablet Take 1 tablet by mouth one time a week. In am with glass of water, on a empty stomach, nothing by mouth or lying down for 30 minutes - acyclovir (ZOVIRAX) 400 mg tablet Take 1 tablet by mouth two times a day. - celecoxib (CELEBREX) 200 mg capsule Take 1 capsule by mouth once daily. - traZODone (DESYREL) 150 mg tablet Take 1 tablet by mouth daily at bedtime. - amLODIPine (NORVASC) 2.5 mg tablet Take 1 tablet by mouth once daily. - Dextromethorphan-guaiFENe sin (ROBITUSSIN COUGH-CHEST ESTEFANÍA DM) 5-100 mg/5 mL liqd Take 10 mL by mouth every 4 hours as needed. - omeprazole (PRILOSEC) 40 mg capsule Take 1 capsule by mouth once daily. - FOLIC ACID ORAL Take by mouth as directed. - ZINC ORAL Take by mouth as directed. - SYMBICORT 160-4.5 mcg/actuation inhaler - BIOTIN ORAL Take 5,000 mcg by mouth. - ascorbic acid/collagen hydr (COLLAGEN PLUS VITAMIN C ORAL) Take 1,000 mg by mouth twice daily. - albuterol HFA (PROAIR HFA) 90 mcg/actuation inhaler Inhale 2 Puffs as instructed every 4 hours as needed for Wheezing/Shortness of Breath. - Ascorbic Acid (VITAMIN C) 1,000 mg TbER Take by mouth. - Calcium Carb-Cholecalciferol (CALCIUM 600 WITH VITAMIN D3) 600-200 mg-unit ORAL Tab Take one(1) tablet two(2) times daily. Problem List As Of Date 03/17/2025 Noted Resolved Chronic interstitial cystitis [N30.10] 04/08/2006 Adjustment disorder with depressed mood [F43.21]05/20/2006 09/21/2019 Insomnia, unspecified [G47.00] 05/20/2006 Generalized hyperhidrosis [R61] 05/20/2006 Contact dermatitis and other eczema, due to uns*02/05/2008 12/07/2015 Cervicalgia [M54.2] 07/26/2008 09/21/2019 Pain in joint, shoulder region [M25.519] 07/26/2008 03/18/2017 Manic disorder, recurrent episode, moderate (HC*08/18/2008 Contact dermatitis and other eczema due to othe*02/03/2009 12/07/2015 Disorders of bursae and tendons in shoulder reg*02/26/2009 12/07/2015 Lumbar spinal stenosis [M48.061] 08/05/2009 Climacteric [N95.1] 01/13/2010 08/07/2016 Lung mass [R91.8] 09/07/2011 09/21/2019 Postmenopausal atrophic vaginitis [N95.2] 05/01/2012 Heavy alcohol use [F10.90] 01/14/2013 Epidural abscess [G06.2] 09/16/2013 04/28/2014 Chest pain, atypical [R07.89] 12/15/2013 04/28/2014 SOB (shortness of breath) [R06.02] 12/15/2013 04/28/2014 Degenerative arthritis of lumbar spine [M47.816]05/06/2014 Arnold-Chiari malformation (HCC) [Q07.00] 09/22/2014 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] 09/22/2014 Cervical spondylosis without myelopathy [M47.81*02/21/2015 Essential hypertension, benign [I10] 02/21/2015 Emphysema of lung (HCC) [J43.9] 03/18/2015 Osteoporosis [M81.0] 09/01/2015 Overactive bladder [N32.81] 09/01/2015 HSV (herpes simplex virus) anogenital infection*02/08/2016 09/21/2019 Asthma with COPD with exacerbation (HCC) [J44.1]09/05/2016 Nocturnal muscle cramps [R25.2] 09/11/2016 09/21/2019 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] 10/10/2016 09/21/2019 Carpal tunnel syndrome, right [G56.01] 01/03/2017 09/21/2019 [facility] (more content not included)... Normal [facility] BETA 2 GLYCOPROTEIN, IGGon 0 03-15-2025 Beta 2 glycoprotein 1 IgG IA Qn <9 Normal <20 [facility] Comment on above: Order Comment: Speci deon Type: BLOOD SPECIMEN Ordering Facility: [facility] Address: [address] [place] [address] Result Comment: <20 SGU Negative 20-80 SGU Low Positive >80 SGU High Positive These results were obtained with the [employer] QUANTA Lite B2 GPI IgG BRIGETTE. B2 GPI IgG values obtained with different manufacturers' assay methods may not be used interchangeably. The magnitude of the reported IgG levels cannot be correlated to an endpoint titer. Performed By: #### 1 989-3 #### [facility] CLIA [id number] [address] [place] [address] [place] BETA 2 GLYCOPROTEIN, IGMon 0 03-15-2025 Beta 2 glycoprotein 1 IgM IA Qn <9 Normal <20 [facility] Comment on above: Order Comment: Speci deon Type: BLOOD SPECIMEN Ordering Facility: [facility] Address: [address] [place] [address] Result Comment: <20 SMU Negative 20-80 SMU Low Positive >80 SMU High positive These results were obtained with the [employer] QUANTA Lite B2 GPI IgM BRIGETTE. B2 GPI IgM values obtained with different manufacturers' assay methods may not be used interchangeably. The magnitude of the reported IgM levels cannot be correlated to an endpoint titer. Performed By: #### 1 989-3 #### [facility] CLIA [id number] [address] [place] [address] [place] CARDIOLIPIN IGG ABSon 2024 Cardiolipin IgG IA Qn (S) <9.0 Normal <15.0 [facility] Comment on above: Order Comment: Crow chavarria Type: BLOOD SPECIMEN Ordering Facility: [facility] Address: [address] [place] [address] Result Comment: <15 GPL Negative 15-20 GPL Indeterminate >20 GPL Positive The following results were obtained with the [employer] QUANTA Lite JOSE JUAN IgG III BRIGETTE. Cardiolipin IgG values obtained with the different manufacturers' assay methods may not be used interchangeably. The magnitude of the reported IgG levels cannot be correlated to an endpoint titer. Performed By: #### L [id number], HCOAG #### [facility] CLIA [id number] [address] [place] [address] [place] CARDIOLIPIN IGM ABSon 2024 Cardiolipin IgM IA Qn (S) 16.8 MPL High <12.5 [facility] Comment on above: Order Comment: Speci men Type: BLOOD SPECIMEN Ordering Facility: [facility] Address: [address] [place] [address] Result Comment: <12. 5 MPL Negative 12.5-20 MPL Indeterminate >20 MPL Positive The following results were obtained with the [employer] QUANTA Lite JOSE JUAN IgM III BRIGETTE. Cardiolipin IgM values obtained with the different manufacturers' assay methods may not be used interchangeably. The magnitude of the reported IgM levels cannot be correlated to an endpoint titer. ??? Performed By: #### 1 989-3 #### [facility] CLIA [id number] [address] [place] [address] [place] CNOVon 03-15-2025 [facility] ----- DIONY RAMIREZ ([id number]) 1955 F Date Time Provider Department 03/15/25 10:00 AM SHANITA GREEN FAMPWS During your visit today, we recorded the following information about you: Temperature Pulse Respiration Blood pressure 98.7 degrees 86/minute 16/minute 110/80 Shanita Green PA-C 03/15/2025 11:07 AM Signed Chief Complaint Patient presents with: Buttock Pain: Bilateral radiates down leg. Has been having more brusing left arm HPI Diony Ramirez is a 70 year old female who presents here today for Above Complaints.. Insomnia: - Persistent insomnia, with difficulty maintaining sleep. - Falls asleep around 21:00-21:30 but wakes up consistently at 01:00 and is unable to return to sleep. - Currently taking Seroquel 50 mg, trazodone, hydroxyzine, and OTC melatonin for sleep with no significant improvement. - Expresses frustration with the number of medications being taken and desires to reduce medication use. Easy Bruising: - Reports easy bruising, particularly on the left wrist, with minimal trauma. - Bruises sometimes appear purple and can bleed easily if bumped. - Using Bermed topical cream for bruising with no significant improvement. - Denies taking aspirin or other blood thinners; currently on Celebrex. - History of iron deficiency with recent normal levels. Bilateral Buttock and Upper Leg Pain: - Reports worsening pain in the bilateral buttocks and upper legs, described as feeling like being kicked by a horse or ripped apart. - Pain has been present for about two years and is worse in the upper part of the legs and buttocks. - Pain is constant and worsens with bending over or picking up objects. - Has tried various topical pain relief creams with no significant improvement. - History of neuropathy in the upper legs, diagnosed many years ago with nerve conduction tests. - History of scoliosis, arthritis, and spinal surgery in 1994. - Currently under the care of Dr. Epstein for pain management and receiving injections for neck and shoulder pain. - Has had multiple back x-rays and MRIs in the past. - Denies interest in physical therapy, stating she can perform exercises at home. - Walks daily but reports that walking worsens the pain. Past medical history, appointments, medications, allergies reviewed. Previous Medical History PAST MEDICAL HISTORY Diagnosis Date Abnormal toxicological findings 02/01/2021 Tox screen 01/27/2021 showed no benzos and pos for oxycodone which patient was not on. Patient informed of no further controlled med refills. 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 Chronic anxiety 06/17/2018 Chronic bilateral low back pain with sciatica 07/15/[address] Epstein Degenerative arthritis of lumbar spine 05/06/2014 Ectatic thoracic aorta 12/04/2022 CT done 12/2022 Elevated blood sugar 01/27/2021 Emphysema of lung (HCC) 03/18/2015 Essential hypertension, benign 02/21/2015 Ex-smoker 01/27/2021 Started around 89 and quit 2004. Smoked about 1.5 PPD GERD without esophagitis 09/12/2022 Herpes 01/27/2021 History of 2019 novel coronavirus disease (COVID-19) 01/27/202106/2020 History of small bowel obstruction HSV (herpes simplex virus) anogenital infection 02/08/2016 Living will on file at physician's office 09/27/2022 DPA: Reina Denise (aunt) Lung mass 09/07/2011 Lung nodules 05/30/[address] Suleman Gustafson Medicare annual wellness visit, subsequent 01/27/2021 Medicare Part B: NA Last done: Multiple thyroid nodules 01/27/[address] Vigil and f/u was stable. Told no need for further f/u. Osteoporosis 09/01/2015 Fosamax restarted 01/2019 Other dysphagia 01/21/2025 Did swallowing exam and sent to therapy for swallowing techniques. 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 Takes mid morning. Substance agreement signed and Tox screen done 12/2020. 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 COLONOSCOPY FLX DX W/COLLJ SPEC WHEN PFRMD 08/19/2006 Repeat in COLONOSCOPY FLX DX W/COLLJ SPEC WHEN PFRMD 06/27/2016 Colonoscopy CRANIOPLASTY SKULL DEF/REPAIR/ BRAIN 09/14/2014 See s (more content not included)... Normal [facility] CRP SerPl-mCncon 03-15-2025 CRP [Mass/Vol] mg/L Normal <0.9 [facility] Comment on above: Order Comment: Speci men Type: BLOOD SPECIMEN Ordering Facility: [facility] Address: [address] [place] [address] Performed By: #### L [id number], HCOAG #### [facility] CLIA [id number] [address] [place] [address] [place] Cardiolipin IgA Ser IA-aCnco n 03-15-2025 Cardiolipin IgA IA Qn (S) <9.0 Normal <12.0 [facility] Comment on above: Order Comment: Crow chavarria Type: BLOOD SPECIMEN Ordering Facility: [facility] Address: [address] [place] [address] Result Comment: <12 APL Negative 12-20 APL Indeterminate >20 APL Positive The following results were obtained with the [employer] QUANTA Lite JOSE JUAN IgA III BRIGETTE. Cardiolipin IgA values obtained with the different manufacturers' assay methods may not be used interchangeably. The magnitude of the reported IgA levels cannot be correlated to an endpoint titer. Performed By: #### L [id number], HCOAG #### [facility] CLIA [id number] [address] [place] [address] [place] HYPERCOAG PANELon 03-15-2025 Activated protein C resistance Coag (PPP) [Time ratio] 5.92 Ratio Normal >=2.90 [facility] Comment on above: Order Comment: Faridai deon Type: BLOOD SPECIMEN Ordering Facility: [facility] Address: [address] [place] [address] Performed By: #### L [id number], HCOAG #### [facility] CLIA [id number] [address] [place] [address] [place] Antithrombin actual/normal Chromogenic method (PPP) [Rel catalytic activity/Vol] 100 % Normal 84-138 [facility] Comment on above: Order Comment: Speci men Type: BLOOD SPECIMEN Ordering Facility: [facility] Address: [address] [place] [address] Performed By: #### L [id number], HCOAG #### [facility] CLIA [id number] [address] [place] [address] [place] aPTT Coag (Bld) [Time] 28.9 s Normal 24.0-35.1 [facility] Comment on above: Order Comment: Speci men Type: BLOOD SPECIMEN Ordering Facility: [facility] Address: [address] [place] [address] Performed By: #### L [id number], HCOAG #### [facility] CLIA [id number] [address] [place] [address] [place] aPTT W excess hexagonal phase phospholipid Coag (PPP) [Time] 41.7 seconds Normal 34.0-51.8 [facility] Comment on above: Order Comment: Speci men Type: BLOOD SPECIMEN Ordering Facility: [facility] Address: [address] [place] [address] Performed By: #### L [id number], HCOAG #### [facility] CLIA [id number] [address] [place] [address] [place] Coagulation factor VIII activity actual/normal Coag (PPP) [Relative time] 154 % Normal 50-173 [facility] Comment on above: Order Comment: Speci men Type: BLOOD SPECIMEN Ordering Facility: [facility] Address: [address] [place] [address] Performed By: #### L [id number], HCOAG #### [facility] CLIA [id number] [address] [place] [address] [place] Coagulation factor X activated act Coag Qn (PPP) <0.10 Normal <0.10 [facility] Comment on above: Order Comment: Speci men Type: BLOOD SPECIMEN Ordering Facility: [facility] Address: [address] [place] [address] Result Comment: This test was developed, and its performance characteristics determined by the [facility] Department of Pathology and Laboratory Medicine. It has not been cleared or approved by the FDA. The [facility] Department of Pathology and Laboratory Medicine is regulated under CLIA as qualified to perform high-complexity testing. This test is used for clinical purposes. It should not be regarded as investigational or for research. Performed By: #### L [id number], HCOAG #### [facility] CLIA [id number] [address] [place] [address] [place] Delta dRVVT Coag (PPP) [Time diff] 2.1 delta seconds Normal <7.1 [facility] Comment on above: Order Comment: Crow chavarria Type: BLOOD SPECIMEN Ordering Facility: [facility] Address: [address] [place] [address] Performed By: #### L [id number], HCOAG #### [facility] CLIA [id number] [address] [place] [address] [place] dRVVT W excess hexagonal phase phospholipid actual/normal Coag (PPP) [Relative time] 39.5 seconds Normal 34.2-47.9 [facility] Comment on above: Order Comment: Speci deon Type: BLOOD SPECIMEN Ordering Facility: [facility] Address: [address] [place] [address] Performed By: #### L [id number], HCOAG #### [facility] CLIA [id number] [address] [place] [address] [place] FIBRINOGEN ACTIVITY 276 mg/dL Normal 200-400 [facility] Comment on above: Order Comment: Speci men Type: BLOOD SPECIMEN Ordering Facility: [facility] Address: [address] [place] [address] Performed By: #### L [id number], HCOAG #### [facility] CLIA [id number] [address] [place] [address] [place] Protein C actual/normal Coag (PPP) [Relative time] 100 % Normal 76-147 [facility] Comment on above: Order Comment: Speci men Type: BLOOD SPECIMEN Ordering Facility: [facility] Address: [address] [place] [address] Performed By: #### L [id number], HCOAG #### [facility] CLIA [id number] [address] [place] [address] [place] Protein S actual/normal Coag (PPP) [Relative time] 91 % Normal 59-152 [facility] Comment on above: Order Comment: Speci men Type: BLOOD SPECIMEN Ordering Facility: [facility] Address: [address] [place] [address] Performed By: #### L [id number], HCOAG #### [facility] CLIA [id number] [address] [place] [address] [place] PT Coag (Bld) [Time] 12.8 s Normal 11.6-14.[address] [facility] Comment on above: Order Comment: Speci men Type: BLOOD SPECIMEN Ordering Facility: [facility] Address: [address] [place] [address] Performed By: #### L [id number], HCOAG #### [facility] CLIA [id number] [address] [place] [address] [place] Thrombin time Coag (PPP) [Time] 17.7 seconds Normal <18.6 [facility] Comment on above: Order Comment: Speci men Type: BLOOD SPECIMEN Ordering Facility: [facility] Address: [address] [place] [address] Performed By: #### L [id number], HCOAG #### [facility] CLIA [id number] [address] [place] [address] [place] HYPERCOAG PANEL INTERPon INTERPRETATION (HYPERCOAG) Normal [facility] Comment on above: Order Comment: Crow chavarria Type: BLOOD SPECIMEN Ordering Facility: [facility] Address: [address] [place] [address] Result Comment: Roshan ntially normal - see comment below. A laboratory evaluation for congenital and acquired risk factors for thrombophilia was performed. Both the PT and APTT results are normal. The thrombin time and anti-Xa screen were normal. No heparin, anti-Xa or direct thrombin inhibitor drug effect is present. LUPUS ANTICOAGULANT STUDIES: The normal hexagonal phase phospholipid neutralization and APTT assays make a lupus anticoagulant unlikely. ANTIPHOSPHOLIPID ANTIBODY STUDIES: The IgM anticardiolipin antibody titer is minimally elevated. This is of doubtful clinical significance. The IgG and IgM Beta-2 Glycoprotein I antibody titers were negative. PROTEIN STUDIES: The levels of protein C, protein S, antithrombin, fibrinogen, factor VIII, and C-reactive protein are normal. GENOTYPING STUDIES: The activated protein C resistance ratio (APC-R) is normal. The Factor V Leiden mutation, a c.1601G>A variant (legacy name R506Q) in the Factor V (F5) gene, is unlikely. The patient is negative for the c.*97G>A variant (legacy name [id number]) in the 3' untranslated region of the Factor II (F2) prothrombin gene. This result is not associated with an increased risk of thromboembolic disease. Please refer to the interpretation provided with the PT Gene Mutation result for further diagnostic and prognostic information. Please correlate these laboratory results with clinical findings and medication history. Performed By: #### L [id number], HCOAG #### [facility] CLIA [id number] [address] [place] [address] [place] Pathologist name Reviewed by Bethany Tovar M.D., Ph.D [facility] Comment on above: Order Comment: Crow chavarria Type: BLOOD SPECIMEN Ordering Facility: [facility] Address: [address] [place] [address] Performed By: #### L [id number], HCOAG #### [facility] CLIA [id number] [address] [place] [address] [place] PROTHROMBIN GENE PCRon 07-14 -2025 PROTHROMBIN GENE MUTATION [facility] Comment on above: Order Comment: Speci men Type: BLOOD SPECIMEN Ordering Facility: [facility] Address: [address] [place], [place] [id number] Result Comment: Prot hrombin Gene Mutation Laboratory Accession Number: [id number] Result: NORMAL Interpretation: The DNA sample is negative for the c.*97G>A variant (legacy name 68236L>A) in the 3' untranslated region of the Factor II (F2) gene. This result is not associated with an increased risk of thromboembolic disease. Thromboembolic disease is a multifactorial disorder and other causes are not excluded by this result. Methodology: Isolated Genomic DNA from the patient's blood specimen is evaluated for the c*97G>A (g.00544508) variant of the F2 gene [RefSeq NM_000506.53;GRCh38/hg38] by multiplex polymerase chain reaction (PCR) followed by melting curve analysis. Limitations: This assay is designed to detect the c.*97G>A (09675C>A) variant in the F2 gene. Uncommon variants or single nucleotide polymorphisms may affect binding of probes and may rarely result in false negative, false positive or indeterminate results. This assay does not detect other disease-associated rare variants in F2 or other causes of thromboembolic disease. Disclaimer: This test was developed and its performance characteristics determined by [facility]'s Pathology and Laboratory Medicine Department. It has not been cleared or approved by the FDA. [facility]'s Pathology and Laboratory Medicine Department is regulated under CLIA as certified to perform high-complexity testing. This test is used for clinical purposes. It should not be regarded as investigational or for research. Test performed at [facility], [address] [place], [place] [address]. CLIA Number: [id number] References: 1) Inheritied Thrombophilias in . ACOG Practice Bulletin. No. 197. [place] [employer]. Obsete Gynecol 2018;132:e18-34. 2) Jyothi SR, Dariana FR, Guy PH, and Romina BRAVO. A common genetic variation in the 3'-untranslated region of the prothrombin gene is associated with elevated plasma prothrombin levels and an increase in venous thrombosis. Blood 88:3698-703, 1995. 3) Juan Jose Campos, Jake Guzmán, Hussain Moreno, Jaymie Barboza. Prothrombin 73589J>T: 16 new cases, association with the 53383R>G polymorphism, and literature review. J Thromb Haemost. 2009;9:1585-7. Interpretation performed at remote location ([place]) by Talia Hsu, PhD Performed By: #### L [id number], HCOAG #### [facility] CLIA [id number] [address] [place] [address] [place] Pulmonary Visit Reporton Pulmonary Visit Report [facility] [place] [address] [place], [place] [address] OFFICE VISIT Date of Service: 02/09/25 MR#: [id number] Acct: [id number] Name: JENA RAMIREZ Rep #: [id number] : 1955 Provider: Letha Emery NP Age/Sex: 69/F [place] [facility] [place] Status: Signed Assessment and Plan Assessment and Plan (1) Asthma-COPD overlap syndrome: Status: Chronic Plan: The patient is currently stable. She is not exacerbating. NIOX is within normal limits. There is no need for oral prednisone at this time. I have recommended that she continue with use of Symbicort. The patient declined triple therapy at last office visit. Use albuterol on an as-needed basis. Patient was advised to contact our office with any worsening in her breathing quality and/or increasing reliance on her short acting beta agonist. (2) Nicotine dependence, cigarettes, in remission: Status: Chronic Plan: She remains clinically stable. Continue with complete smoking cessation. Recommend follow-up low- dose CT scan in December 2025, ordered accordingly, follow-up after imaging. The patient will have then completed the low-dose screening lung CT program. Orders: Orders Low Dose CT Lung Screening 12/31/25 F17.210 - Nicotine dependence, cigarettes, uncomplicated NIOX Today J44.9 - Chronic obstructive pulmonary disease, unspecified Plan The patient reports features of daytime hypersomnia and sleep disordered breathing. I have encouraged her to consider sleep testing to determine if she has sleep apnea. She has declined today. She understands this practice is willing to assist her should she decide to pursue further testing. Plan Details Follow Up: 12 Months (LMR) HPI HPI Comments Details: The patient is a 69-year-old female who presents to the clinic today for a follow-up office visit to discuss recent test results. She has a history of asthma -COPD overlap syndrome and history of smoking. She is ambulatory and currently on room air. The patient initially presented in August 2016 for evaluation of dyspnea.??? She reported an extensive medical history which included depression, alcoholism, previous tobacco abuse and chronic pain syndrome, for which she is prescribed opiates.??? The patient has a smoking history that includes 1.5 packs/day x 25 years.??? The patient quit smoking completely in 2010. Pulmonary function studies last completed in December 2021 demonstrated an irreversible mild large airways obstructive ventilatory defect with preserved diffusing capacity. There was evidence of hyperinflation and air trapping. Surface echocardiogram from May 2021 demonstrated normal LV size and function with an ejection fraction of 65%. Right ventricular systolic pressure was estimated to be 20 mmHg. She reports that shortness of breath is present. She denies wheezing along with chest pain and chest tightness. She has a non productive cough. Denies wheezing, congestion, chest pain or tightness. She does not routinely use albuterol. She has not required use of prednisone or antibiotic therapy since last follow-up. She does have occasional dry nonproductive cough. She reports that she is able to choke easily when swallowing food. She reports that she has a narrow esophagus . She has not pursued esophageal dilatation but does report that she is implementing speech therapy recommendations with meals. She continues to utilize Symbicort 2 inhalations twice daily and as needed albuterol. Unfortunately the cost of Symbicort has become cost prohibitive and patient is looking for an alternative inhaler, she indicates that her insurance will cover generic Symbicort. She reports that she does rinse her mouth after inhaler use. She has not had recent difficulty with sore throat or thrush. Her weight and appetite have been stable. She denies any fevers, hemoptysis, chills, and night sweats. She has received her influenza vaccine for the 2023 flu season and did receive RSV vaccine in 2022. She has a history of acute bronchial asthma as a child and report I was allergic to everything. In the past, she has tried OTC allergy pills and flonase without significant improvement. She does use singulair and has not had side effects. She reports that she does not sleep well. She indicates that she would not sleep with PAP therapy if she had sleep apnea. She reports that she is falling asleep and then waking up after 3 hours. Her mind is active and she has difficulty falling back to sleep at that time. PFT from July 27, 2024 which shows irreversible moderate large airway obstructive ventilatory defect with associated air trapping and mild reduction in diffusion capacity. There was indication that patient had used Symbicort several hours prior to test. While there is an in-coving of the expiratory limb th (more content not included)... 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 Interpreting physician: Rito Lawson MD PATIENT: Name: MRS. DIONY RAMIREZ : 1955 Age: 69 years Gender: F History of hypertension. Primary rhythm: sinus. Height: 142.20 cm BSA: 1.26 m Weight: 39.97 kg BMI: 19.8 kg/m Heart rate 81 bpm Blood pressure 137/86 mmHg Color Doppler was utilized to interrogate the cardiac valves assessed and spectral Doppler was utilized to determine the flow velocities and pressure gradients reported in this exam. Myocardial strain analysis was performed in this exam to aid in the assessment of cardiac function. MEASUREMENTS: Value Indexed Normal Max aortic dimension 3.5 cm Ao < 3.8 Left atrial volume 33 ml (biplane A-L) 26 ml/m Andre <= 34 LV ID (diastole) 3.5 cm (2D) 2.79 cm/m LV ID (systole) 2.4 cm (2D) 1.88 cm/m IVS, leaflet tips 0.9 cm (2D) Posterior wall thickness 1.0 cm (2D) Left ventricular mass 96 g (2D) 77 g/m Global peak long strain -20.3 % LV stroke volume 38 ml (2D biplane) LV end diastolic volume 57 ml (2D biplane) 45.2 ml/m 29<=EDVi<62 LV end systolic volume 19 ml (2D biplane) 15.3 ml/m Ejection Fraction 66 % (2D biplane) EF > 54 FINDINGS: LEFT VENTRICLE The left ventricle is normal in size. Left ventricular systolic function is normal. Global LV myocardial strain is normal. Grade I left ventricular diastolic dysfunction. Mitral annular lateral E/e': 7.1. Mitral annular septal E/e': 9.1. Wall Motion: All scored segments are normal. RIGHT VENTRICLE The right ventricle is normal in size. Right ventricular systolic function is normal. RV systolic tissue Doppler velocity is 13.0 cm/s. Tricuspid annular displacement is 2.0 cm. Estimated right ventricular systolic pressure is not reported due to an insufficient tricuspid regurgitation signal. Estimated right atrial pressure is 3 mmHg (although IVC not seen). LEFT ATRIUM The left atrial cavity is normal in size. RIGHT ATRIUM The right atrial cavity is normal in size. Inferior Vena Cava: The inferior vena cava appears normal measuring 0.7 cm. MITRAL VALVE The mitral valve leaflets are structurally normal. There is no mitral valve regurgitation. The pressure half time is 56 msec. The peak mitral E/A ratio is 0.75. The average mitral E/e' ratio is 8.1. The mitral flow deceleration time is 191 msec. TRICUSPID VALVE The tricuspid valve leaflets are structurally normal. There is trace tricuspid valve regurgitation. AORTIC VALVE The aortic valve cusps are structurally normal. There is trace aortic valve regurgitation. Tricuspid aortic valve. The peak gradient is 6 mmHg (peak velocity = 126.1 cm/s). PULMONIC VALVE The pulmonic valve cusps are structurally normal. There is trace pulmonic valve regurgitation. AORTA The visualized aorta is normal in size. Measurements - Sinus: 3.2 cm. Sinotubular junction 2.8 cm. Mid ascending aorta 3.5 cm. INTERATRIAL SEPTUM There is no evidence of intracardiac shunting as detected by Doppler. PERICARDIUM There is no pericardial effusion. There is an epicardial fat pad. CONCLUSIONS: - Exam indication: Shortness of Breath - The left ventricle is normal in size. Left ventricular systolic function is normal. EF = 66 5% (2D biplane) Grade I left ventricular diastolic dysfunction. - The right ventricle is normal in size. Right ventricular systolic function is normal. - There are no significant valvular abnormalities. - Exam was compared with the prior CC echocardiographic exam performed on 12/31/2023, no significant change. * * * Final * * * [employer] Medical Image : [id number] [facility] D/C Summary- SPon 01-18-2025 D/C Summary- SP [facility] Speech [facility] [address] [place] [address] / REHABILITATION SERVICES DISCHARGE SUMMARY MR#: [id number] Acct: [id number] Name: JENA RAMIREZ Rep #: [id number] : 1955 69 From: Yossi Robison M.A., [facility] Referring Dr.: Dr. Rito Camp MD Status: R EG RCR Insurance: [facility] SENIOR [facility] SELF PAY INSURANCE ST Discharge Summary Discharged: Discharge: Jena Ramirez is discharged from [facility] as of January 18, 2025. She was evaluated on 10/20/24 for dysphagia. Patient participated in MBSS on 11/24/24 with Regular Textures and Thin Liquids recommended with the following Compensatory Strategies: Small Bites (Chew thoroughly), Small Sips, Slow Rate, Alternate bites/solids and sips/liquids (Take a drink after every 1-2 bites), Sitting upright (During meal and 30-60min after) and minimize/decrease distractions. She was treated for one session after MBSS to provide exercises and education. She was to return in one month to re-assess dysphagia at that time. She cancelled an appointment on 12/14/24 and no further visits were scheduled by patient. Thank you for allowing me to participate in the care of this patient. 01/18/25 0914 CC: Dr. Rito Camp MD TAYLOR Signed [facility] CNOVon 01-05-2025 CNOV Office Visit (FAMPWS ) ----- DIONY RAMIREZ ([id number]) 1955 F Date Time Provider Department 01/05/25 10:00 AM [facility] During your visit today, we recorded the following information about you: Temperature Pulse Respiration Blood pressure 97.8 degrees 77/minute 16/minute 118/82 Weight 40 kg Shanita Green PA-C 01/05/2025 10:47 AM Signed Chief Complaint Patient presents with: Toe Pain (Toe): Right fourth digit x 1 week HPI Diony Ramirez is a 69 year old female who presents here today for Above Complaints.. Right Foot Pain: - Onset over a week ago after catching house slipper on a throw rug, causing toes to bend. - Pain localized to the fourth toe, described as severe, with tenderness extending behind the toe. - No ecchymosis noted; reports mild swelling. - Ambulation is painful due to toe flexion. - Denies significant pain in other areas of the foot. - High risk for fractures due to poor bone density. Aortic Aneurysm: - History of aortic aneurysm, initially discovered incidentally during a lung scan. - Most recent echocardiogram showed mid ascending aorta at 3.4 cm and distal ascending aorta at 3.5 cm. - Family history of aortic aneurysm in father and cerebral aneurysm in mother. - Concerned about potential hereditary nature of aneurysm. Pulmonary Nodules: - Undergoing annual monitoring for pulmonary nodules by valet runner. - Recent lung scan performed at the hospital; Diony requests confirmation that the report was received. Insomnia: - Difficulty maintaining sleep, waking after 3 hours and unable to return to sleep. - Currently taking trazodone 150 mg, Seroquel 25 mg, hydroxyzine, and OTC melatonin for sleep. - Expresses desire to reduce the number of medications and increase the dosage of the most effective one. - Long-term use of trazodone; Seroquel recently started. - Reports that lower doses of medications are typically ineffective for her. Diet: - Consumes canned vegetables, meat, and potatoes regularly. - Limited fruit intake. Past medical history, appointments, medications, allergies reviewed. Previous Medical History PAST MEDICAL HISTORY Diagnosis Date Abnormal toxicological findings 02/01/2021 Tox screen 01/27/2021 showed no benzos and pos for oxycodone which patient was not on. Patient informed of no further controlled med refills. 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 Chronic anxiety 06/17/2018 Chronic bilateral low back pain with sciatica 07/15/[address] Epstein Degenerative arthritis of lumbar spine 05/06/2014 Ectatic thoracic aorta 12/04/2022 CT done 12/2022 Elevated blood sugar 01/27/2021 Emphysema of lung (HCC) 03/18/2015 Essential hypertension, benign 02/21/2015 Ex-smoker 01/27/2021 Started around 89 and quit 2004. Smoked about 1.5 PPD GERD without esophagitis 09/12/2022 Herpes 01/27/2021 History of 2019 novel coronavirus disease (COVID-19) 01/27/202106/2020 History of small bowel obstruction HSV (herpes simplex virus) anogenital infection 02/08/2016 Living will on file at physician's office 09/27/2022 DPA: Reina Chamorrot (aunt) Lung mass 09/07/2011 Lung nodules 05/30/[address] Suleman Gustafson Medicare annual wellness visit, subsequent 01/27/2021 Medicare Part B: NA Last done: Multiple thyroid nodules 01/27/[address] Vigil and f/u was stable. Told no need for further f/u. 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 Takes mid morning. Substance agreement signed and Tox screen done 12/2020. 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 COLONOSCOPY FLX DX W/COLLJ SPEC WHEN PFRMD 08/19/2006 Repeat in COLONOSCOPY FLX DX W/COLLJ SPEC WHEN PFRMD 06/27/2016 Colonoscopy CRANIOPLASTY SKULL DEF/REPAIR/ BRAIN 09/14/2014 See scanned documents - status post ESOPHAGOGASTRODUODENOSCOP Y TRANSORAL DIAGNOSTIC 06/27/2016 EGD ESOPHAGOGASTRODUODENOSCOP Y TRANSORAL DIAGNOSTIC 06/30/2018 EGD IANDD ABSCESS CMPLX/MULT 07/2013 Epidural abscess- MSSA LIG/TRNSXJ FLP TUBE ABDL/VAG APPR UNI/BI Tubal ligation PAST SURGICAL HISTORY OF spinal surgery PAST SURGICAL HISTORY OF 2/3 (more content not included)... [facility] XR FOOT 3V AP/LAT/OBL RTon 0 01-05-2025 XR FOOT 3V AP/LAT/OBL RT * * *Final Report* * * DATE OF EXAM: Jan 05 2025 10:52AM WOX [id number] - XR FOOT 3V AP/LAT/OBL RT / PROCEDURE REASON: Injury of right toe, initial encounter * * * * Physician Interpretation * * * * TITLE: XR FOOT 3V AP/LAT/OBL RT CLINICAL INDICATION: Injury with pain TECHNIQUE: 3 view radiographic study of the right foot COMPARISON: Radiograph dated 03/16/2013 FINDINGS: No acute fracture or dislocation identified. Stable mild posttraumatic deformity of the fifth mid metatarsal shaft. Scattered mild joint space narrowing of the interphalangeal joints. IMPRESSION: No radiographic evidence of acute osseous injury Community Health Educator: [facility] Transcribe Date/Time: Jan 05 2025 10:54A Dictated by : KATIE WATERS MD This examination was interpreted and the report reviewed and electronically signed by: KATIE WATERS MD on Jan 05 2025 10:55AM EST [id number] [facility] XR Foot - right AP and Later al and obliqueon 01-05-2025 IMPRESSION: No radiographic evidence of acute osseous injury Community Health Educator: [facility] Transcribe Date/Time: Jan 05 2025 10:54A Dictated by : KATIE WATERS MD This examination was interpreted and the report reviewed and electronically signed by: KATIE WATERS MD on Jan 05 2025 10:55AM EST DIVISION OF RADIOLOGY * * *Final Report* * * DATE OF EXAM: Jan 05 2025 10:52AM WOX [id number] - XR FOOT 3V AP/LAT/OBL RT / PROCEDURE REASON: Injury of right toe, initial encounter * * * * Physician Interpretation * * * * TITLE: XR FOOT 3V AP/LAT/OBL RT CLINICAL INDICATION: Injury with pain TECHNIQUE: 3 view radiographic study of the right foot COMPARISON: Radiograph dated 03/16/2013 FINDINGS: No acute fracture or dislocation identified. Stable mild posttraumatic deformity of the fifth mid metatarsal shaft. Scattered mild joint space narrowing of the interphalangeal joints. DIVISION OF RADIOLOGY Provider, [facility] - 01/05/2025 * * *Final Report* * * DATE OF EXAM: Jan 05 2025 10:52AM WOX [id number] - XR FOOT 3V AP/LAT/OBL RT / PROCEDURE REASON: Injury of right toe, initial encounter * * * * Physician Interpretation * * * * TITLE: XR FOOT 3V AP/LAT/OBL RT CLINICAL INDICATION: Injury with pain TECHNIQUE: 3 view radiographic study of the right foot COMPARISON: Radiograph dated 03/16/2013 FINDINGS: No acute fracture or dislocation identified. Stable mild posttraumatic deformity of the fifth mid metatarsal shaft. Scattered mild joint space narrowing of the interphalangeal joints. IMPRESSION IMPRESSION: No radiographic evidence of acute osseous injury Community Health Educator: [facility] Transcribe Date/Time: Jan 05 2025 10:54A Dictated by : KATIE WATERS MD This examination was interpreted and the report reviewed and electronically signed by: KATIE WATERS MD on Jan 05 2025 10:55AM EST [facility] Radiology Study observation (narrative) [facility] XR Foot - right AP and Later al and obliqueOrdered By: [facility]cf Provider on 01-05-[address] [facility] [address] Lung Screeningon 01-01-[address] Lung Screening [facility] Services [address] [place], [place] [address] Low Dose CT Lung Screening MR#: [id number] Acct: [id number] Name: JENA RAMIREZ Rep #: [id number] : 1955 F 69 From: Monico Lopez MD PCP: Dr. Rito Camp MD Status: REG CLI Study: Low Dose CT Lung Screening Date of Exam: 01/01 Exam# [id number] Ordering Dr: Sierra Dee NP [employer]C PROCEDURE: LOW DOSE CT LUNG SCREENING 01/01/2025 REASON FOR EXAM: SMOKER QUIT 2010 TECHNIQUE: Low Dose CT Lung screening without contrast. Coronal and Sagittal reconstruction series were provided. One or more dose reduction techniques were used (e.g., Automated exposure control, adjustment of the mA and/or kV according to patient size, use of iterative reconstruction technique). REFERENCE LINK: [employer] Lung-RADS RADIATION DOSE SUMMARY: CTDlvol: 2.0 mGy DLP: 61.2 mGycm COMPARISON: CT chest on 01/01/2024 and 05/16/2022. FINDINGS: PULMONARY NODULES: (Only nodules >3 mm are reported) Nodules described below are on series 2 unless otherwise specified. Pulmonary Nodules: Perifissural nodule in the left lower lobe measuring 3 mm (image 116), unchanged Lymph Nodes:Unremarkable Heart and Vasculature:Coronary artery calcifications are noted.Trace atherosclerotic calcifications of the thoracic aorta. Thoracic aorta and pulmonary arteries have normal contours; noncontrast technique limits evaluation. Coronary Artery Calcifications: Present, mild multivessel Lungs and Airways: Apical predominant centrilobular emphysema. Unchanged scarring at the medial aspect of the right lung apex, and at the central aspect of the left lung apex. Pleura:Unremarkable Upper Abdomen:Unremarkable Bones:Degenerative changes and rightward curvature of the thoracic spine. CT/Low Dose CT Lung Screening IMPRESSION: Lung-RADS Category: 2 BENIGN (BASED ON IMAGING FEATURES OR INDOLENT BEHAVIOR). RECOMMEND 12-MONTH SCREENING LDCT. Other Significant Findings: Mild coronary artery calcification (CAC) is present Reading Location: [id number] CC: TRACI Dee; Dr. Rito Camp MD Community Health Educator: Signed [facility] BD DXA - AXIAL SKELETONon BD DXA - AXIAL SKELETON * * *Final Report* * * DATE OF EXAM: Dec 28 2024 9:19AM WRB [id number] - BD DXA - AXIAL SKELETON / PROCEDURE REASON: Osteoporosis, unspecified osteoporosis type, unspecified pathological fracture p * * * * Physician Interpretation * * * * EXAMINATION: DXA BONE DENSITOMETRY BD DXA - AXIAL SKELETON, BD DXA TRABECLR BONE SCORE (TBS) PATIENT DEMOGRAPHICS: Age: 69 years, Gender: Female SCANNER INFORMATION: DXA Model: [facility] [place] [id number] Date Scanned: 12/28/2024 9:19 AM CLINICAL HISTORY: DIAGNOSTIC Osteoporosis, unspecified osteoporosis type, unspecified pathological fracture presence . RISK FACTORS FOR OSTEOPOROSIS AND ASSOCIATED FRACTURES REPORTED BY THIS PATIENT: Please refer to Bone Health Questionnaire in the EMR CURRENT THERAPY: Please refer to Bone Health Questionnaire in the EMR TECHNICAL LIMITATIONS: Degenerative disease of the spine RESULTS: Lumbar spine (L1, L2, L3, L4): 0.992 g/cm2, T-score -0.5, Z-score 1.5 Lumbar spine: 2022: 1.022 g/cm2 No statistically significant change Right Femoral Neck: 0.507 g/cm2, T-score -3.1, Z-score -1.4 Right Femoral Neck: 2022: 0.533 g/cm2 No statistically significant change Right Total Hip: 0.661 g/cm2, T-score -2.3, Z-score -0.9 Right Total Hip: 2022: 0.731 g/cm2 Statistically significant decrease Left Femoral Neck: 0.509 g/cm2, T-score -3.1, Z-score -1.3 Left Femoral Neck: 2022: 0.577 g/cm2 Statistically significant decrease Left Total Hip: 0.661 g/cm2, T-score -2.3, Z-score -0.9 Left Total Hip: 2022: 0.717 g/cm2 Statistically significant decrease CHANGE IS STATISTICALLY SIGNIFICANT IN THE SPINE OR HIP IF GREATER THAN OR EQUAL TO 0.04 g/cm2 VERTEBRAL FRACTURE ASSESSMENT Not performed. TRABECULAR BONE ASSESSMENT TBS score: 1.344 Bone micro-architecture: Normal (> 1.310) IMPRESSION: THE LOWEST T-SCORE IS -3.1 IN THE RIGHT AND LEFT HIPS 1) DIAGNOSIS (based on BMD alone): OSTEOPOROSIS Caution: Medical conditions other than osteoporosis may cause low bone density, such as osteomalacia or renal osteodystrophy. Clinical correlation is necessary. 2) FRACTURE RISK (Based on TBS adjusted FRAX): 10-year absolute fracture risk: - major osteoporotic fracture = 21 % - hip fracture = 7.3 % - A diagnosis of Osteoporosis, a 10 year probability of hip fracture greater than or equal to 3% or a 10 year probability of any major osteoporosis-related fracture greater than or equal to 20% should be considered for treatment. - DXA scanner generated FRAX calculations may slightly differ from online FRAX calculations due to differences in software versions. - All recommendations and calculations are to be considered as guidelines and should not replace sound clinical judgement - Caution: Fracture risk may be increased independent of BMD in patients with corticosteroid use, age greater than 65 years, or a history of prior fragility fracture. RECOMMENDATIONS: Follow-up in 2 years or as clinically indicated. Patients that are taking corticosteroids, are transplant recipients or have hyperparathyroidism should have annual follow-up. Follow-up scans should always be done on the same machine for accurate comparison. FOR MORE INFORMATION ABOUT DIAGNOSIS AND TREATMENT: [facility] Center for Osteoporosis and Metabolic Bone Disease:? www.ccf.org/arthritis/ost eo National Osteoporosis Foundation:? www.nof.org International Society of Clinical Densitometry www.iscd.org Community Health Educator: LEONARDO Transcribe Date/Time: Dec 28 2024 10:04A Dictated by : KATIE WTAERS MD This examination was interpreted and the report reviewed and electronically signed by: KATIE WATERS MD on Dec 28 2024 10:06AM EST [id number] -3.1 Normal [facility] BD DXA TRABECLR BONE SCORE ( TBS)on 12-28-2024 BD DXA TRABECLR BONE SCORE (TBS) * * *Final Report* * * DATE OF EXAM: Dec 28 2024 9:19AM [facility] 0801 - BD DXA TRABECLR BONE SCORE (TBS) / PROCEDURE REASON: Osteoporosis, unspecified osteoporosis type, unspecified pathological fracture p * * * * Physician Interpretation * * * * EXAMINATION: DXA BONE DENSITOMETRY BD DXA - AXIAL SKELETON, BD DXA TRABECLR BONE SCORE (TBS) PATIENT DEMOGRAPHICS: Age: 69 years, Gender: Female SCANNER INFORMATION: DXA Model: [facility] - [place] C [id number] Date Scanned: 12/28/2024 9:19 AM CLINICAL HISTORY: DIAGNOSTIC Osteoporosis, unspecified osteoporosis type, unspecified pathological fracture presence . RISK FACTORS FOR OSTEOPOROSIS AND ASSOCIATED FRACTURES REPORTED BY THIS PATIENT: Please refer to Bone Health Questionnaire in the EMR CURRENT THERAPY: Please refer to Bone Health Questionnaire in the EMR TECHNICAL LIMITATIONS: Degenerative disease of the spine RESULTS: Lumbar spine (L1, L2, L3, L4): 0.992 g/cm2, T-score -0.5, Z-score 1.5 Lumbar spine: 2022: 1.022 g/cm2 No statistically significant change Right Femoral Neck: 0.507 g/cm2, T-score -3.1, Z-score -1.4 Right Femoral Neck: 2022: 0.533 g/cm2 No statistically significant change Right Total Hip: 0.661 g/cm2, T-score -2.3, Z-score -0.9 Right Total Hip: 2022: 0.731 g/cm2 Statistically significant decrease Left Femoral Neck: 0.509 g/cm2, T-score -3.1, Z-score -1.3 Left Femoral Neck: 2022: 0.577 g/cm2 Statistically significant decrease Left Total Hip: 0.661 g/cm2, T-score -2.3, Z-score -0.9 Left Total Hip: 2022: 0.717 g/cm2 Statistically significant decrease CHANGE IS STATISTICALLY SIGNIFICANT IN THE SPINE OR HIP IF GREATER THAN OR EQUAL TO 0.04 g/cm2 VERTEBRAL FRACTURE ASSESSMENT Not performed. TRABECULAR BONE ASSESSMENT TBS score: 1.344 Bone micro-architecture: Normal (> 1.310) IMPRESSION: THE LOWEST T-SCORE IS -3.1 IN THE RIGHT AND LEFT HIPS 1) DIAGNOSIS (based on BMD alone): OSTEOPOROSIS Caution: Medical conditions other than osteoporosis may cause low bone density, such as osteomalacia or renal osteodystrophy. Clinical correlation is necessary. 2) FRACTURE RISK (Based on TBS adjusted FRAX): 10-year absolute fracture risk: - major osteoporotic fracture = 21 % - hip fracture = 7.3 % - A diagnosis of Osteoporosis, a 10 year probability of hip fracture greater than or equal to 3% or a 10 year probability of any major osteoporosis-related fracture greater than or equal to 20% should be considered for treatment. - DXA scanner generated FRAX calculations may slightly differ from online FRAX calculations due to differences in software versions. - All recommendations and calculations are to be considered as guidelines and should not replace sound clinical judgement - Caution: Fracture risk may be increased independent of BMD in patients with corticosteroid use, age greater than 65 years, or a history of prior fragility fracture. RECOMMENDATIONS: Follow-up in 2 years or as clinically indicated. Patients that are taking corticosteroids, are transplant recipients or have hyperparathyroidism should have annual follow-up. Follow-up scans should always be done on the same machine for accurate comparison. FOR MORE INFORMATION ABOUT DIAGNOSIS AND TREATMENT: [facility] Center for Osteoporosis and Metabolic Bone Disease:? www.ccf.org/arthritis/ost eo National Osteoporosis Foundation:? www.nof.org International Society of Clinical Densitometry www.iscd.org Community Health Educator: LEONARDO Transcribe Date/Time: Dec 28 2024 10:04A Dictated by : KATIE WATERS MD This examination was interpreted and the report reviewed and electronically signed by: KATIE WATERS MD on Dec 28 2024 10:06AM EST [id number] -3.1 Normal [facility] DXA Femur [T-score] Bone nadya hernandez 12-28-2024 * * *Final Report* * * DATE OF EXAM: Dec 28 2024 9:19AM B 0801 - BD DXA TRABECLR BONE SCORE (TBS) / PROCEDURE REASON: Osteoporosis, unspecified osteoporosis type, unspecified pathological fracture p * * * * Physician Interpretation * * * * EXAMINATION: DXA BONE DENSITOMETRY BD DXA - AXIAL SKELETON, BD DXA TRABECLR BONE SCORE (TBS) PATIENT DEMOGRAPHICS: Age: 69 years, Gender: Female SCANNER INFORMATION: DXA Model: [facility] - [place] [id number] Date Scanned: 12/28/2024 9:19 AM CLINICAL HISTORY: DIAGNOSTIC Osteoporosis, unspecified osteoporosis type, unspecified pathological fracture presence . RISK FACTORS FOR OSTEOPOROSIS AND ASSOCIATED FRACTURES REPORTED BY THIS PATIENT: Please refer to Bone Health Questionnaire in the EMR CURRENT THERAPY: Please refer to Bone Health Questionnaire in the EMR TECHNICAL LIMITATIONS: Degenerative disease of the spine RESULTS: Lumbar spine (L1, L2, L3, L4): 0.992 g/cm2, T-score -0.5, Z-score 1.5 Lumbar spine: 2022: 1.022 g/cm2 No statistically significant change Right Femoral Neck: 0.507 g/cm2, T-score -3.1, Z-score -1.4 Right Femoral Neck: 2022: 0.533 g/cm2 No statistically significant change Right Total Hip: 0.661 g/cm2, T-score -2.3, Z-score -0.9 Right Total Hip: 2022: 0.731 g/cm2 Statistically significant decrease Left Femoral Neck: 0.509 g/cm2, T-score -3.1, Z-score -1.3 Left Femoral Neck: 2022: 0.577 g/cm2 Statistically significant decrease Left Total Hip: 0.661 g/cm2, T-score -2.3, Z-score -0.9 Left Total Hip: 2022: 0.717 g/cm2 Statistically significant decrease CHANGE IS STATISTICALLY SIGNIFICANT IN THE SPINE OR HIP IF GREATER THAN OR EQUAL TO 0.04 g/cm2 VERTEBRAL FRACTURE ASSESSMENT Not performed. TRABECULAR BONE ASSESSMENT TBS score: 1.344 Bone micro-architecture: Normal (> 1.310) DIVISION OF RADIOLOGY Provider, [facility] - 12/28/2024 * * *Final Report* * * DATE OF EXAM: Dec 28 2024 9:19AM [facility] 0801 - BD DXA TRABECLR BONE SCORE (TBS) / PROCEDURE REASON: Osteoporosis, unspecified osteoporosis type, unspecified pathological fracture p * * * * Physician Interpretation * * * * EXAMINATION: DXA BONE DENSITOMETRY BD DXA - AXIAL SKELETON, BD DXA TRABECLR BONE SCORE (TBS) PATIENT DEMOGRAPHICS: Age: 69 years, Gender: Female SCANNER INFORMATION: DXA Model: [place] - [place] [id number] Date Scanned: 12/28/2024 9:19 AM CLINICAL HISTORY: DIAGNOSTIC Osteoporosis, unspecified osteoporosis type, unspecified pathological fracture presence . RISK FACTORS FOR OSTEOPOROSIS AND ASSOCIATED FRACTURES REPORTED BY THIS PATIENT: Please refer to Bone Health Questionnaire in the EMR CURRENT THERAPY: Please refer to Bone Health Questionnaire in the EMR TECHNICAL LIMITATIONS: Degenerative disease of the spine RESULTS: Lumbar spine (L1, L2, L3, L4): 0.992 g/cm2, T-score -0.5, Z-score 1.5 Lumbar spine: 2022: 1.022 g/cm2 No statistically significant change Right Femoral Neck: 0.507 g/cm2, T-score -3.1, Z-score -1.4 Right Femoral Neck: 2022: 0.533 g/cm2 No statistically significant change Right Total Hip: 0.661 g/cm2, T-score -2.3, Z-score -0.9 Right Total Hip: 2022: 0.731 g/cm2 Statistically significant decrease Left Femoral Neck: 0.509 g/cm2, T-score -3.1, Z-score -1.3 Left Femoral Neck: 2022: 0.577 g/cm2 Statistically significant decrease Left Total Hip: 0.661 g/cm2, T-score -2.3, Z-score -0.9 Left Total Hip: 2022: 0.717 g/cm2 Statistically significant decrease CHANGE IS STATISTICALLY SIGNIFICANT IN THE SPINE OR HIP IF GREATER THAN OR EQUAL TO 0.04 g/cm2 VERTEBRAL FRACTURE ASSESSMENT Not performed. TRABECULAR BONE ASSESSMENT TBS score: 1.344 Bone micro-architecture: Normal (> 1.310) IMPRESSION IMPRESSION: THE LOWEST T-SCORE IS -3.1 IN THE RIGHT AND LEFT HIPS 1) DIAGNOSIS (based on BMD alone): OSTEOPOROSIS Caution: Medical conditions other than osteoporosis may cause low bone density, such as osteomalacia or renal osteodystrophy. Clinical correlation is necessary. 2) FRACTURE RISK (Based on TBS adjusted FRAX): 10-year absolute fracture risk: - major osteoporotic fracture = 21 % - hip fracture = 7.3 % - A diagnosis of Osteoporosis, a 10 year probability of hip fracture greater than or equal to 3% or a 10 year probability of any major osteoporosis-related fracture greater than or equal to 20% should be considered for treatment. - DXA scanner generated FRAX calculations may slightly differ from online FRAX calculations due to differences in software versions. - All recommendations and calculations are to be considered as guidelines and should not replace sound clinical judgement - Caution: Fracture risk may be increased independent of BMD in patients with corticosteroid use, age greater than 65 years, or a history of prior fragility fracture. RECOMMENDATIONS: Follow-up in 2 years or as clinically indicated. Patients that are taking corticosteroids, are transplant recipients or have hyperparathyroidism should have annual follow-up. Follow-up scans should always be done on the same machine for accurate comparison. FOR MORE INFORMATION ABOUT DIAGNOSIS AND TREATMENT: [facility] Center for Osteoporosis and Metabolic Bone Disease:? www.ccf.org/arthritis/ost eo National Osteoporosis Foundation:? www.nof.org International Society of Clinical Densitometry www.iscd.org Community Health Educator: LEONARDO Transcribe Date/Time: Dec 28 2024 10:04A Dictated by : KATIE WATERS MD This examination was interpreted and the report reviewed and electronically signed by: KATIE WATERS MD on Dec 28 2024 10:06AM EST [facility] DXA Skeletal system.axial Vi ews for bone densityon 12-28-2024 * * *Final Report* * * DATE OF EXAM: Dec 28 2024 9:19AM [facility] 0804 - BD DXA - AXIAL SKELETON / PROCEDURE REASON: Osteoporosis, unspecified osteoporosis type, unspecified pathological fracture p * * * * Physician Interpretation * * * * EXAMINATION: DXA BONE DENSITOMETRY BD DXA - AXIAL SKELETON, BD DXA TRABECLR BONE SCORE (TBS) PATIENT DEMOGRAPHICS: Age: 69 years, Gender: Female SCANNER INFORMATION: DXA Model: [place] - [place] C [id number] Date Scanned: 12/28/2024 9:19 AM CLINICAL HISTORY: DIAGNOSTIC Osteoporosis, unspecified osteoporosis type, unspecified pathological fracture presence . RISK FACTORS FOR OSTEOPOROSIS AND ASSOCIATED FRACTURES REPORTED BY THIS PATIENT: Please refer to Bone Health Questionnaire in the EMR CURRENT THERAPY: Please refer to Bone Health Questionnaire in the EMR TECHNICAL LIMITATIONS: Degenerative disease of the spine RESULTS: Lumbar spine (L1, L2, L3, L4): 0.992 g/cm2, T-score -0.5, Z-score 1.5 Lumbar spine: 2022: 1.022 g/cm2 No statistically significant change Right Femoral Neck: 0.507 g/cm2, T-score -3.1, Z-score -1.4 Right Femoral Neck: 2022: 0.533 g/cm2 No statistically significant change Right Total Hip: 0.661 g/cm2, T-score -2.3, Z-score -0.9 Right Total Hip: 2022: 0.731 g/cm2 Statistically significant decrease Left Femoral Neck: 0.509 g/cm2, T-score -3.1, Z-score -1.3 Left Femoral Neck: 2022: 0.577 g/cm2 Statistically significant decrease Left Total Hip: 0.661 g/cm2, T-score -2.3, Z-score -0.9 Left Total Hip: 2022: 0.717 g/cm2 Statistically significant decrease CHANGE IS STATISTICALLY SIGNIFICANT IN THE SPINE OR HIP IF GREATER THAN OR EQUAL TO 0.04 g/cm2 VERTEBRAL FRACTURE ASSESSMENT Not performed. TRABECULAR BONE ASSESSMENT TBS score: 1.344 Bone micro-architecture: Normal (> 1.310) DIVISION OF RADIOLOGY Provider, [facility] - 12/28/2024 * * *Final Report* * * DATE OF EXAM: Dec 28 2024 9:19AM [facility] 0804 - BD DXA - AXIAL SKELETON / PROCEDURE REASON: Osteoporosis, unspecified osteoporosis type, unspecified pathological fracture p * * * * Physician Interpretation * * * * EXAMINATION: DXA BONE DENSITOMETRY BD DXA - AXIAL SKELETON, BD DXA TRABECLR BONE SCORE (TBS) PATIENT DEMOGRAPHICS: Age: 69 years, Gender: Female SCANNER INFORMATION: DXA Model: [place] - [place] [id number] Date Scanned: 12/28/2024 9:19 AM CLINICAL HISTORY: DIAGNOSTIC Osteoporosis, unspecified osteoporosis type, unspecified pathological fracture presence . RISK FACTORS FOR OSTEOPOROSIS AND ASSOCIATED FRACTURES REPORTED BY THIS PATIENT: Please refer to Bone Health Questionnaire in the EMR CURRENT THERAPY: Please refer to Bone Health Questionnaire in the EMR TECHNICAL LIMITATIONS: Degenerative disease of the spine RESULTS: Lumbar spine (L1, L2, L3, L4): 0.992 g/cm2, T-score -0.5, Z-score 1.5 Lumbar spine: 2022: 1.022 g/cm2 No statistically significant change Right Femoral Neck: 0.507 g/cm2, T-score -3.1, Z-score -1.4 Right Femoral Neck: 2022: 0.533 g/cm2 No statistically significant change Right Total Hip: 0.661 g/cm2, T-score -2.3, Z-score -0.9 Right Total Hip: 2022: 0.731 g/cm2 Statistically significant decrease Left Femoral Neck: 0.509 g/cm2, T-score -3.1, Z-score -1.3 Left Femoral Neck: 2022: 0.577 g/cm2 Statistically significant decrease Left Total Hip: 0.661 g/cm2, T-score -2.3, Z-score -0.9 Left Total Hip: 2022: 0.717 g/cm2 Statistically significant decrease CHANGE IS STATISTICALLY SIGNIFICANT IN THE SPINE OR HIP IF GREATER THAN OR EQUAL TO 0.04 g/cm2 VERTEBRAL FRACTURE ASSESSMENT Not performed. TRABECULAR BONE ASSESSMENT TBS score: 1.344 Bone micro-architecture: Normal (> 1.310) IMPRESSION IMPRESSION: THE LOWEST T-SCORE IS -3.1 IN THE RIGHT AND LEFT HIPS 1) DIAGNOSIS (based on BMD alone): OSTEOPOROSIS Caution: Medical conditions other than osteoporosis may cause low bone density, such as osteomalacia or renal osteodystrophy. Clinical correlation is necessary. 2) FRACTURE RISK (Based on TBS adjusted FRAX): 10-year absolute fracture risk: - major osteoporotic fracture = 21 % - hip fracture = 7.3 % - A diagnosis of Osteoporosis, a 10 year probability of hip fracture greater than or equal to 3% or a 10 year probability of any major osteoporosis-related fracture greater than or equal to 20% should be considered for treatment. - DXA scanner generated FRAX calculations may slightly differ from online FRAX calculations due to differences in software versions. - All recommendations and calculations are to be considered as guidelines and should not replace sound clinical judgement - Caution: Fracture risk may be increased independent of BMD in patients with corticosteroid use, age greater than 65 years, or a history of prior fragility fracture. RECOMMENDATIONS: Follow-up in 2 years or as clinically indicated. Patients that are taking corticosteroids, are transplant recipients or have hyperparathyroidism should have annual follow-up. Follow-up scans should always be done on the same machine for accurate comparison. FOR MORE INFORMATION ABOUT DIAGNOSIS AND TREATMENT: [facility] Center for Osteoporosis and Metabolic Bone Disease:? www.ccf.org/arthritis/ost eo National Osteoporosis Foundation:? www.nof.org International Society of Clinical Densitometry www.iscd.org Community Health Educator: LEONARDO Transcribe Date/Time: Dec 28 2024 10:04A Dictated by : KATIE WATERS MD This examination was interpreted and the report reviewed and electronically signed by: KATIE WATERS MD on Dec 28 2024 10:06AM [facility] Panel InformationOrdered By: [facility] Provider on 12-28-2024 LOWEST T-SCORE -3.1 [facility] No Panel Informationon 12-28 IMPRESSION: THE LOWEST T-SCORE IS -3.1 IN THE RIGHT AND LEFT HIPS 1) DIAGNOSIS (based on BMD alone): OSTEOPOROSIS Caution: Medical conditions other than osteoporosis may cause low bone density, such as osteomalacia or renal osteodystrophy. Clinical correlation is necessary. 2) FRACTURE RISK (Based on TBS adjusted FRAX): 10-year absolute fracture risk: - major osteoporotic fracture = 21 % - hip fracture = 7.3 % - A diagnosis of Osteoporosis, a 10 year probability of hip fracture greater than or equal to 3% or a 10 year probability of any major osteoporosis-related fracture greater than or equal to 20% should be considered for treatment. - DXA scanner generated FRAX calculations may slightly differ from online FRAX calculations due to differences in software versions. - All recommendations and calculations are to be considered as guidelines and should not replace sound clinical judgement - Caution: Fracture risk may be increased independent of BMD in patients with corticosteroid use, age greater than 65 years, or a history of prior fragility fracture. RECOMMENDATIONS: Follow-up in 2 years or as clinically indicated. Patients that are taking corticosteroids, are transplant recipients or have hyperparathyroidism should have annual follow-up. Follow-up scans should always be done on the same machine for accurate comparison. FOR MORE INFORMATION ABOUT DIAGNOSIS AND TREATMENT: [facility] Center for Osteoporosis and Metabolic Bone Disease:? www.ccf.org/arthritis/ost eo National Osteoporosis Foundation:? www.nof.org International Society of Clinical Densitometry www.iscd.org Community Health Educator: LEONARDO Transcribe Date/Time: Dec 28 2024 10:04A Dictated by : KATIE WATERS MD This examination was interpreted and the report reviewed and electronically signed by: KATIE WATERS MD on Dec 28 2024 10:06AM EST DIVISION OF RADIOLOGY Radiology Study observation (narrative) [facility] Gastroenterology Visit Repor ton 12-17-2024 Gastroenterology Visit Report [facility] [address] [place] [address] OFFICE VISIT Date of Service: 12/17/24 MR#: [id number] Acct: [id number] Name: JENA RAMIREZ Ortiz Rep #: [id number] : 1955 Provider: TRACI neil Age/Sex: 69/F [place] [facility] [place] Status: Signed Intake Vital Signs 09/15/24 08:02 Height 4 ft 9 in Weight: 92 lb BMI 19.9 BP 127/80 H Blood Pressure Location Lt brachial Position Sitting Respiration 20 H Pulse 85 Pulse Source Monitor Temp 97.0 F L Pulse Oximetry (%) 95 Oxygen Delivery Method room air Intake Visit Reasons: Gastroesophageal reflux disease (GERD) Chief Complaint: dysphagia Patient Relations Coordinator Required: No Is patient in pain?: No Allergies Fish Containing Products Allergy (Severe, Verified 12/17/24 10:42) Angioedema shellfish derived Allergy (Severe, Verified 12/17/24 10:42) Angioedema Horse/Equine Containing Products Allergy (Unknown, Verified 12/17/24 10:42) NEEDS FOLLOW-UP lisinopril Allergy (Unknown, Verified 12/17/24 10:42) Unknown Medications ???Medication ???Instructions ???Recorded ???Confirmed ???Type melatonin 10 mg sublingual tablet 10 mg PO QHS sleeping pill 12/17/24 History ascorbic acid (vitamin C) 500 mg 1,000 mg PO DAILY supplement 06/2612/17/24 History tablet,extended release biotin 5,000 mcg sublingual tablet 5,000 mcg sublingual DAILY 02/2312/17/24 History supplement cyanocobalamin (vitamin B-12) 2,500 mcg PO DAILY supplement 04/0312/17/24 History 2,500 mcg tablet acyclovir 400 mg tablet 400 mg PO BID female issue 2 12/17/24 History albuterol sulfate 90 mcg/actuation 2 puff inhalation Q6H PRN 12/17/24 Rx aerosol inhaler (ProAir HFA) shortness of breath or wheezing #3 ea calcium carbonate (Calcium 600) 600 mg PO DAILY bones 06/01/23 History hydroxyzine HCl 10 mg tablet 10 mg PO QHS sleep 06/01/23 History ipratropium 0.5 mg-albuterol 3 mg 3 ml inhalation Q4H PRN PRN SOB 0 12/25/23 12/17/24 Rx (2.5 mg base)/3 mL nebulization /OR WHEEZING #180 mL soln amlodipine 2.5 mg tablet (Norvasc) 2.5 mg PO DAILY Blood pressure 0 01/01/24 12/17/24 History fluticasone propionate 50 2 spray intranasal DAILY PRN 12/3112/17/24 History mcg/actuation nasal allergies spray,suspension (Flonase Allergy Relief) budesonide-formoterol HFA 160 2 inh inhalation BID #3 ea 4 12/17/24 Rx mcg-4.5 mcg/actuation aerosol inhaler (Symbicort) trazodone 150 mg tablet 150 mg PO QHS 07/21/24 12/17/24 Hi story ipratropium bromide 42 mcg (0.06 2 spray intranasal TID #15 mL 09/0212/17/24 Rx %) nasal spray montelukast 10 mg tablet 10 mg PO QPM breathing #90 tabs 12/17/24 Rx omeprazole 40 mg capsule,delayed 40 mg PO DAILY acid reflux #90 cap s 12/17/24 12/17/24 Rx release ondansetron HCl 4 mg tablet 4 mg PO .COMPLEX #5 tabs 12/17/24 12/17/24 Rx peg 3350-sod sulf,[id number] See Rx Instructions PO .COMPLEX #2 12/17/24 12/17/24 Rx 178.7-7.3-0.5-1.12-0.9 gram oral mL soln (Suflave) Have you fallen in the past year?: No Nurse's Note: Chokes easy. Had a swallow test here in October. [facility] Medical History Vitamin D toxicity Uterine fibroid Former smoker Asthma COPD (chronic obstructive pulmonary disease) Hypertension Partial small bowel obstruction COVID-19 HSV (herpes simplex virus) anogenital infection Overactive bladder Emphysema of lung Benign essential HTN Postmenopausal atrophic vaginitis Lung mass Climacteric Lumbar spinal stenosis Peripheral neuropathy Recurrent manic disorder Cervicalgia Generalized hyperhidrosis Chronic interstitial cystitis RODRIGUEZ (dyspnea on exertion) Anxiety associated with depression Chronic pain disorder Sleep-related breathing disorder Stage 2 moderate COPD by GOLD classification Esophageal obstruction due to food impaction Arnold-Chiari deformity COPD, moderate Alcohol abuse Osteoporosis Surgical History H/O Spinal surgery H/O eye surgery History of bilateral tubal ligation S/P craniotomy Family History Father Hypertension Aortic aneurysm Cancer skin and bladder Colon cancer Mother Brain aneurysm Depression Social History household members: none Smoking Status: Former smoker quit date: 09/02/10 pack-years: 57 second hand exposure: No alcohol intake: current alcohol intake frequency: 3 or more drinks per day Alcohol type: beer details: Drinks 5-6 beers daily, nearly no breaks in her days of intake. (more content not included)... [facility] 12-02-2024 [facility] Telephone (FAMPWS) ----- DIONY RAMIREZ ([id number]) 1955 F Date Time Provider Department 12/02/24 AURY [facility] During your visit today, we recorded the following information about you: Aury Newton MA 12/02/2024 11:25 AM Signed Scan on 11/30/2024 10:14 AM by Provider, Jenna PAErnieC: GI Review results. KATINA Núñez Christopher B, MD 12/02/2024 11:29 AM Signed Barium swallow results reviewed. Would have patient follow recommendations as written. Let us know if they need speech therapy referral order. Keep f/u with Dr. Camp next week. Mitzy Dewey LPN 12/04/2024 10:49 AM Signed Phoned patient and she reported she was aware of results and she had referral already placed, testing scheduled and ST ordered already. She stated she cancelled her follow up with Dr Camp but will let us know if she needs anything else. Mitzy Dewey LPN Allergies As of Date: 12/02/2024 Noted Allergy Reaction FISH 06/23/2005 16 - Unknown HORSE/EQUINE CONTAINING PRODUCTS 08/30/2023 16 - Unknown LISINOPRIL 12/07/2015 3 - Cough SHELLFISH DERIVED 08/30/2023 16 - Unknown Date Reviewed: 10/01/2024 Reviewed by: Rito Camp MD - Fully Assessed Reason for Visit: Results [95] Prescriptions as of 12/04/2024 - acyclovir (ZOVIRAX) 400 mg tablet Take 1 tablet by mouth two times a day. - QUEtiapine (SEROQUEL) 25 mg tablet Take 1 tablet by mouth daily at bedtime. - hydrOXYzine HCl (ATARAX) 10 mg tablet Take 1 tablet by mouth daily at bedtime. - Melatonin 5 mg cap Take 2 capsules by mouth daily at bedtime. - celecoxib (CELEBREX) 200 mg capsule Take 1 capsule by mouth once daily. - traZODone (DESYREL) 150 mg tablet Take 1 tablet by mouth daily at bedtime. - amLODIPine (NORVASC) 2.5 mg tablet Take 1 tablet by mouth once daily. - Dextromethorphan-guaiFENe sin (ROBITUSSIN COUGH-CHEST ESTEFANÍA DM) 5-100 mg/5 mL liqd Take 10 mL by mouth every 4 hours as needed. - omeprazole (PRILOSEC) 40 mg capsule Take 1 capsule by mouth once daily. - FOLIC ACID ORAL Take by mouth as directed. - ZINC ORAL Take by mouth as directed. - SYMBICORT 160-4.5 mcg/actuation inhaler - BIOTIN ORAL Take 5,000 mcg by mouth. - ascorbic acid/collagen hydr (COLLAGEN PLUS VITAMIN C ORAL) Take 1,000 mg by mouth twice daily. - albuterol HFA (PROAIR HFA) 90 mcg/actuation inhaler Inhale 2 Puffs as instructed every 4 hours as needed for Wheezing/Shortness of Breath. - Ascorbic Acid (VITAMIN C) 1,000 mg TbER Take by mouth. - Calcium Carb-Cholecalciferol (CALCIUM 600 WITH VITAMIN D3) 600-200 mg-unit ORAL Tab Take one(1) tablet two(2) times daily. Problem List As Of Date 12/02/2024 Noted Resolved Chronic interstitial cystitis [N30.10] 04/08/2006 Adjustment disorder with depressed mood [F43.21]05/20/2006 09/21/2019 Insomnia, unspecified [G47.00] 05/20/2006 Generalized hyperhidrosis [R61] 05/20/2006 Contact dermatitis and other eczema, due to uns*02/05/2008 12/07/2015 Cervicalgia [M54.2] 07/26/2008 09/21/2019 Pain in joint, shoulder region [M25.519] 07/26/2008 03/18/2017 Manic disorder, recurrent episode, moderate (HC*08/18/2008 Contact dermatitis and other eczema due to othe*02/03/2009 12/07/2015 Disorders of bursae and tendons in shoulder reg*02/26/2009 12/07/2015 Lumbar spinal stenosis [M48.061] 08/05/2009 Climacteric [N95.1] 01/13/2010 08/07/2016 Lung mass [R91.8] 09/07/2011 09/21/2019 Postmenopausal atrophic vaginitis [N95.2] 05/01/2012 Heavy alcohol use [F10.90] 01/14/2013 Epidural abscess [G06.2] 09/16/2013 04/28/2014 Chest pain, atypical [R07.89] 12/15/2013 04/28/2014 SOB (shortness of breath) [R06.02] 12/15/2013 04/28/2014 Degenerative arthritis of lumbar spine [M47.816]05/06/2014 Arnold-Chiari malformation (HCC) [Q07.00] 09/22/2014 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] 09/22/2014 Cervical spondylosis without myelopathy [M47.81*02/21/2015 Essential hypertension, benign [I10] 02/21/2015 Emphysema of lung (HCC) [J43.9] 03/18/2015 Osteoporosis [M81.0] 09/01/2015 Overactive bladder [N32.81] 09/01/2015 HSV (herpes simplex virus) anogenital infection*02/08/2016 09/21/2019 Asthma with COPD with exacerbation (HCC) [J44.1]09/05/2016 Nocturnal muscle cramps [R25.2] 09/11/2016 09/21/2019 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] 10/10/2016 09/21/2019 Carpal tunnel syndrome, right [G56.01] 01/03/2017 09/21/2019 Chronic anxiety [F41.9] 06/17/2018 Lumbar radiculopathy [M54.16] 04/19/2020 Herpes [B00.9] 01/27/2021 Ex-smoker [Z87.891] 01/27/2021 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] 01/27/2021 History of 2019 novel coronavirus disease (COVI*01/27/2021 Multiple thyroid nodules [E04.2] 01/27/2021 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 [facility] CNPNon 12-01-2024 CNPN Telephone (SHELBYWS) ----- DIONY RAMIREZ ([id number]) 1955 F Date Time Provider Department 12/01/24 [facility] During your visit today, we recorded the following information about you: Kasey Becker LPN 12/01/2024 1:48 PM Signed Patient calling said she had swallowing study done at [facility] on 11/24/2024. She is upset that PCP has not gotten copy of the results yet. She called [facility] med recs dept yesterday and was told being faxed as she was talking to the lady. She talking about bringing her copy to the office and have copy made for PCP. She was told needs Gastro consult, she was hoping to stay with [facility] if PCP wants to give the referral. Please advise Alex Brown APRN.SENIOR INFORMATICA DEVELOPER 12/01/2024 2:49 PM Signed Please let patient know I have reviewed her swallow study and placed GI referral. Mila Kidd MA 12/01/2024 3:14 PM Signed Pt notified and requested it be sent to Dr renetta office. Faxed info. Mila Kidd MA Allergies As of Date: 12/01/2024 Noted Allergy Reaction FISH 06/23/2005 16 - Unknown HORSE/EQUINE CONTAINING PRODUCTS 08/30/2023 16 - Unknown LISINOPRIL 12/07/2015 3 - Cough SHELLFISH DERIVED 08/30/2023 16 - Unknown Date Reviewed: 10/01/2024 Reviewed by: Rito Camp MD - Fully Assessed Reason for Visit: Patient Question [1479] Primary Visit Diagnosis:GERD without esophagitis [K21.9] Other Visit Diagnosis:Choking in adult [R09.89] Order(s):CONSULT TO GASTROENTEROLOGY [9010] Order #: [id number]: 1 FUTURE Prescriptions as of 12/18/2024 - acyclovir (ZOVIRAX) 400 mg tablet Take 1 tablet by mouth two times a day. - QUEtiapine (SEROQUEL) 25 mg tablet Take 1 tablet by mouth daily at bedtime. - hydrOXYzine HCl (ATARAX) 10 mg tablet Take 1 tablet by mouth daily at bedtime. - Melatonin 5 mg cap Take 2 capsules by mouth daily at bedtime. - celecoxib (CELEBREX) 200 mg capsule Take 1 capsule by mouth once daily. - traZODone (DESYREL) 150 mg tablet Take 1 tablet by mouth daily at bedtime. - amLODIPine (NORVASC) 2.5 mg tablet Take 1 tablet by mouth once daily. - Dextromethorphan-guaiFENe sin (ROBITUSSIN COUGH-CHEST ESTEFANÍA DM) 5-100 mg/5 mL liqd Take 10 mL by mouth every 4 hours as needed. - omeprazole (PRILOSEC) 40 mg capsule Take 1 capsule by mouth once daily. - FOLIC ACID ORAL Take by mouth as directed. - ZINC ORAL Take by mouth as directed. - SYMBICORT 160-4.5 mcg/actuation inhaler - BIOTIN ORAL Take 5,000 mcg by mouth. - ascorbic acid/collagen hydr (COLLAGEN PLUS VITAMIN C ORAL) Take 1,000 mg by mouth twice daily. - albuterol HFA (PROAIR HFA) 90 mcg/actuation inhaler Inhale 2 Puffs as instructed every 4 hours as needed for Wheezing/Shortness of Breath. - Ascorbic Acid (VITAMIN C) 1,000 mg TbER Take by mouth. - Calcium Carb-Cholecalciferol (CALCIUM 600 WITH VITAMIN D3) 600-200 mg-unit ORAL Tab Take one(1) tablet two(2) times daily. Problem List As Of Date 12/01/2024 Noted Resolved Chronic interstitial cystitis [N30.10] 04/08/2006 Adjustment disorder with depressed mood [F43.21]05/20/2006 09/21/2019 Insomnia, unspecified [G47.00] 05/20/2006 Generalized hyperhidrosis [R61] 05/20/2006 Contact dermatitis and other eczema, due to uns*02/05/2008 12/07/2015 Cervicalgia [M54.2] 07/26/2008 09/21/2019 Pain in joint, shoulder region [M25.519] 07/26/2008 03/18/2017 Manic disorder, recurrent episode, moderate (HC*08/18/2008 Contact dermatitis and other eczema due to othe*02/03/2009 12/07/2015 Disorders of bursae and tendons in shoulder reg*02/26/2009 12/07/2015 Lumbar spinal stenosis [M48.061] 08/05/2009 Climacteric [N95.1] 01/13/2010 08/07/2016 Lung mass [R91.8] 09/07/2011 09/21/2019 Postmenopausal atrophic vaginitis [N95.2] 05/01/2012 Heavy alcohol use [F10.90] 01/14/2013 Epidural abscess [G06.2] 09/16/2013 04/28/2014 Chest pain, atypical [R07.89] 12/15/2013 04/28/2014 SOB (shortness of breath) [R06.02] 12/15/2013 04/28/2014 Degenerative arthritis of lumbar spine [M47.816]05/06/2014 Arnold-Chiari malformation (HCC) [Q07.00] 09/22/2014 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] 09/22/2014 Cervical spondylosis without myelopathy [M47.81*02/21/2015 Essential hypertension, benign [I10] 02/21/2015 Emphysema of lung (HCC) [J43.9] 03/18/2015 Osteoporosis [M81.0] 09/01/2015 Overactive bladder [N32.81] 09/01/2015 HSV (herpes simplex virus) anogenital infection*02/08/2016 09/21/2019 Asthma with COPD with exacerbation (HCC) [J44.1]09/05/2016 Nocturnal muscle cramps [R25.2] 09/11/2016 09/21/2019 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] 10/10/2016 09/21/2019 Carpal tunnel syndrome, right [G56.01] 01/03/2017 09/21/2019 Chronic anxiety [F41.9] 06/17/2018 Lumbar radiculopathy [M54.16] 04/19/2020 Herpes [B00.9] 01/27/2021 Ex-smoker [Z87.891] 01/27/2021 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] 01/27/2021 History of 2019 novel coronavirus disease (COVI*01/27/2021 M (more content not included)... [facility] Modified Barium Swallow Stud [facility] 11-24-2024 Modified Barium Swallow Study [facility] Speech Pathology [address] [place] [address] Modified Barium Swallow Study MR#: [id number] Acct: [id number] Name: JENA RAMIREZ Rep #: [id number] : [id number] From: Krysta Tatum M.A., [facility] [employer] Modified Barium Swallow Patient Information Study Date: 11/24/24 Study Time: 12:45 Direct Billable Minutes: 70 Total Minutes procedure reportin Diagnosis: Dysphagia R13.10 Referring Physician: Rito Camp Reason for Referral: assess swallow function, assess risk for aspiration, and determine recommendations for least restrictive diet textures and compensatory strategies to facilitate safe po intake. Medical History: Patient recently seen at [facility] for outpatient swallowing evaluation 10/20/2024 to address dysphagia. Per bedside swallowing evaluation history, patient reported that she is coughing or choking 2-3 times per week with no pattern on foods, liquid or it can also be on just saliva. She reports about half of those episodes she is able to cough up bits of food. In 2017 and 2018 she had esophageal impactions and went to ER for removal. She has a history of COPD and Asthma also. Patient has not been evaluated by GI since being in ER per her report. The patient was recommended for regular textures / thin liquids w/ aspiration precautions (Reduce Distractions, Small Sips Bites when Eating, Chew thoroughly). Patient was also recommended for MBSS to further assess swallow function and to determine appropriate dysphagia interventions. Of note, patient has an allergy to products containing fish and shellfish derived allergy. Other history: Vitamin D toxicity, Former smoker, Asthma, COPD , HTN, Partial small bowel obstruction, COVID-19, Emphysema of lung, Benign essential HTN, Lung mass, Climacteric Lumbar spinal stenosis, Peripheral neuropathy, Recurrent manic disorder, Generalized hyperhidrosis, RODRIGUEZ, Anxiety associated with depression, Chronic pain disorder, Sleep-related breathing disorder, Stage 2 moderate COPD by GOLD classification, Esophageal obstruction due to food impaction, Arnold-Chiari deformity, Alcohol abuse, Osteoporosis Current Diet Ordered: Regular / Thin Dentition: Natural Teeth and Missing Teeth (implants, still missing posterior dentition) Mental Status: WNL Respiratory Status: Oxygenating on Room Air Penetration-Aspiration Scale Penetration-Aspiration Scale: OBJECTIVE ASSESSMENT OF SWALLOW FUNCTION (QUANTITATIVE ??? PER TRIAL): PENETRATION / ASPIRATION SCALE (PRINGLE): 1 = does not enter airway 2 = enters airway/above vocal folds/ejected 3 = enters airway/above vocal folds/not ejected 4 = enters airway/contacts vocal folds/ejected 5 = enters airway/contacts vocal folds/not ejected 6 = enters airway/below vocal folds/ejected 7 = enters airway/below vocal folds/not ejected despite effort 8 = enters airway/below vocal folds/no effort VIDEOFLOROSCOPIC SCALE SCORE (PRINGLE): Grade I = aspiration of material that has penetrated into the laryngeal vestibule, intact cough reflex Grade II = aspiration < 10 % of the bolus, intact cough reflex Grade III = aspiration of < 10 % of the bolus, reduced cough reflex or aspiration of > 10 % of the bolus, intact cough reflex Grade IV = aspiration of > 10 % of the bolus, reduced cough reflex Penetration-Aspiration Scale Score Thin Liquid via teaspoon: Result: 2= enter airway/above vocal folds/ejected Thin Liquid via teaspoon Trial 2: Result: 1= does not enter airway Thin Liquid via large single sip: cup: Result: 2= enter airway/above vocal folds/ejected Thin Liquid via sequential sips: cup: Result: 2= enter airway/above vocal folds/ejected Comment: Esophageal screen - Complete clearance. Pudding via teaspoon: Result: 1= does not enter airway Comment: Esophageal screen - Retention of portion of pudding bolus throughout middle and lower esophagus. Thin Liquid via single sip: straw: Result: 2= enter airway/above vocal folds/ejected Comment: Esophageal screen - Complete clearance. 1/2 Cookie coated in Barium Pudding: Result: 1= does not enter airway Comment: Esophageal screen - Minimal retention in middle esophagus. Thin Liquid via sequential sips:straw: Result: 2= enter airway/above vocal folds/ejected Comment: Esophageal screen - Complete clearance. Oral Phase Labial Seal: No Labial Escape Tongue Control During Bolus Hold: Posterior escape of greater than half of bolus Bolus Preparation/Mastication: Disorganized chewing/mashing with solid pieces of bolus unchewed (Timely mastication; however, small pieces of cookie appeared un-chewed.) Bolus Transport/Lingual Motion: Delayed initiation of tongue motion Oral Residue: Residue collection on oral structures Pharyngeal Phase Initiation of Pharyngeal Swallow: Bolus head in pyriforms Soft Palate Elevation: Trace column of contrast/air between soft palate and ph (more content not included)... [facility] DIONY RAMIREZ ([id number]) 1955 F Date Time Provider Department 11/04/24 RITO CAMP During your visit today, we recorded the following information about you: Rosita Melgoza RN 11/04/2024 3:42 PM Signed Pt calling in and states that her pain in her left hip is getting worse. States she has been dealing with this for a long time. Now the pain is in her left buttock and going down her left leg. Pt states she is tired of the pain and is requesting a referral to Dr. Epstein for pain management. She states she went to physical therapy about 3 times with no change or relief and has been doing exercises at home with no relief. Pt states she already talked to Dr. Epstein's office and they need a referral along with her x-ray report. If Dr. Camp okays it, pt asking if she needs to come for her follow up appt on 12/08 for the hip pain? Pt states the Celecoxib that Dr. Camp prescribed is not helping either. Rito Camp MD 11/04/2024 4:15 PM Signed Order placed for consult to Dr. Epstein. Please send copy of office note from 10/01/2024 and 08/03/2025 along with the hip x-ray from 08/03/2024. Rosita Melgoza RN 11/04/2024 7:18 PM Signed Office notes from 08/03/24 and 10/01/24, consult order, hip x ray from 08/03/24, demographics printed and faxed to Dr. Montilla's office at [phone]. Called pt and notified that she should be able to contact Dr. Montilla's office for an appt tomorrow. Allergies As of Date: 11/04/2024 Noted Allergy Reaction FISH 06/23/2005 16 - Unknown HORSE/EQUINE CONTAINING PRODUCTS 08/30/2023 16 - Unknown LISINOPRIL 12/07/2015 3 - Cough SHELLFISH DERIVED 08/30/2023 16 - Unknown Date Reviewed: 10/01/2024 Reviewed by: Rito Camp MD - Fully Assessed Reason for Visit: Left Hip Pain [1555] Primary Visit Diagnosis:Pain in left hip [M25.552] Other Visit Diagnosis:Chronic bilateral low back pain with sciatica, sciatica laterality unspecified [M54.40, G89.29] Order(s):CONSULT TO PAIN MGT [19991208] Order #: [id number]: 1 FUTURE Prescriptions as of 11/04/2024 - hydrOXYzine HCl (ATARAX) 10 mg tablet Take 1 tablet by mouth daily at bedtime. - Melatonin 5 mg cap Take 2 capsules by mouth daily at bedtime. - QUEtiapine (SEROQUEL) 25 mg tablet Take 1 tablet by mouth daily at bedtime. - celecoxib (CELEBREX) 200 mg capsule Take 1 capsule by mouth once daily. - traZODone (DESYREL) 150 mg tablet Take 1 tablet by mouth daily at bedtime. - amLODIPine (NORVASC) 2.5 mg tablet Take 1 tablet by mouth once daily. - Dextromethorphan-guaiFENe sin (ROBITUSSIN COUGH-CHEST ESTEFANÍA DM) 5-100 mg/5 mL liqd Take 10 mL by mouth every 4 hours as needed. - acyclovir (ZOVIRAX) 400 mg tablet Take 1 tablet by mouth two times a day. - omeprazole (PRILOSEC) 40 mg capsule Take 1 capsule by mouth once daily. - FOLIC ACID ORAL Take by mouth as directed. - ZINC ORAL Take by mouth as directed. - SYMBICORT 160-4.5 mcg/actuation inhaler - BIOTIN ORAL Take 5,000 mcg by mouth. - ascorbic acid/collagen hydr (COLLAGEN PLUS VITAMIN C ORAL) Take 1,000 mg by mouth twice daily. - albuterol HFA (PROAIR HFA) 90 mcg/actuation inhaler Inhale 2 Puffs as instructed every 4 hours as needed for Wheezing/Shortness of Breath. - Ascorbic Acid (VITAMIN C) 1,000 mg TbER Take by mouth. - Calcium Carb-Cholecalciferol (CALCIUM 600 WITH VITAMIN D3) 600-200 mg-unit ORAL Tab Take one(1) tablet two(2) times daily. Problem List As Of Date 11/04/2024 Noted Resolved Chronic interstitial cystitis [N30.10] 04/08/2006 Adjustment disorder with depressed mood [F43.21]05/20/2006 09/21/2019 Insomnia, unspecified [G47.00] 05/20/2006 Generalized hyperhidrosis [R61] 05/20/2006 Contact dermatitis and other eczema, due to uns*02/05/2008 12/07/2015 Cervicalgia [M54.2] 07/26/2008 09/21/2019 Pain in joint, shoulder region [M25.519] 07/26/2008 03/18/2017 Manic disorder, recurrent episode, moderate (HC*08/18/2008 Contact dermatitis and other eczema due to othe*02/03/2009 12/07/2015 Disorders of bursae and tendons in shoulder reg*02/26/2009 12/07/2015 Lumbar spinal stenosis [M48.061] 08/05/2009 Climacteric [N95.1] 01/13/2010 08/07/2016 Lung mass [R91.8] 09/07/2011 09/21/2019 Postmenopausal atrophic vaginitis [N95.2] 05/01/2012 Heavy alcohol use [F10.90] 01/14/2013 Epidural abscess [G06.2] 09/16/2013 04/28/2014 Chest pain, atypical [R07.89] 12/15/2013 04/28/2014 SOB (shortness of breath) [R06.02] 12/15/2013 04/28/2014 Degenerative arthritis of lumbar spine [M47.816]05/06/2014 Arnold-Chiari malformation (HCC) [Q07.00] 09/22/2014 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] 09/22/2014 Cervical spondylosis without myelopathy [M47.81*02/21/2015 Essential hypertension, benign [I10] 02/21/2015 Emphysema of lung (HCC) [J43.9] 03/18/2015 Osteoporosis [M81.0] 09/01/2015 Overactive bladder [N32.81] 09/01 (more content not included)... [facility] CNPNon 10-26-2024 CNPN Telephone (ADMWST) ----- DIONY RAMIREZ ([id number]) 1955 F Date Time Provider Department 10/26/24 RITO CAMP ADMWST During your visit today, we recorded the following information about you: Truman Campos 10/26/2024 1:21 PM Signed Patient is requesting her HIP xray from 08/03/24 be placed on a disc. Thank you. 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 - hydrOXYzine HCl (ATARAX) 10 mg tablet Take 1 tablet by mouth daily at bedtime. - Melatonin 5 mg cap Take 2 capsules by mouth daily at bedtime. - celecoxib (CELEBREX) 200 mg capsule Take 1 capsule by mouth once daily. - traZODone (DESYREL) 150 mg tablet Take 1 tablet by mouth daily at bedtime. - amLODIPine (NORVASC) 2.5 mg tablet Take 1 tablet by mouth once daily. - Dextromethorphan-guaiFENe sin (ROBITUSSIN COUGH-CHEST ESTEFANÍA DM) 5-100 mg/5 mL liqd Take 10 mL by mouth every 4 hours as needed. - acyclovir (ZOVIRAX) 400 mg tablet Take 1 tablet by mouth two times a day. - omeprazole (PRILOSEC) 40 mg capsule Take 1 capsule by mouth once daily. - FOLIC ACID ORAL Take by mouth as directed. - ZINC ORAL Take by mouth as directed. - SYMBICORT 160-4.5 mcg/actuation inhaler - BIOTIN ORAL Take 5,000 mcg by mouth. - ascorbic acid/collagen hydr (COLLAGEN PLUS VITAMIN C ORAL) Take 1,000 mg by mouth twice daily. - albuterol HFA (PROAIR HFA) 90 mcg/actuation inhaler Inhale 2 Puffs as instructed every 4 hours as needed for Wheezing/Shortness of Breath. - Ascorbic Acid (VITAMIN C) 1,000 mg TbER Take by mouth. - Calcium Carb-Cholecalciferol (CALCIUM 600 WITH VITAMIN D3) 600-200 mg-unit ORAL Tab Take one(1) tablet two(2) times daily. Problem List As Of Date 10/26/2024 Noted Resolved Chronic interstitial cystitis [N30.10] 04/08/2006 Adjustment disorder with depressed mood [F43.21]05/20/2006 09/21/2019 Insomnia, unspecified [G47.00] 05/20/2006 Generalized hyperhidrosis [R61] 05/20/2006 Contact dermatitis and other eczema, due to uns*02/05/2008 12/07/2015 Cervicalgia [M54.2] 07/26/2008 09/21/2019 Pain in joint, shoulder region [M25.519] 07/26/2008 03/18/2017 Manic disorder, recurrent episode, moderate (HC*08/18/2008 Contact dermatitis and other eczema due to othe*02/03/2009 12/07/2015 Disorders of bursae and tendons in shoulder reg*02/26/2009 12/07/2015 Lumbar spinal stenosis [M48.061] 08/05/2009 Climacteric [N95.1] 01/13/2010 08/07/2016 Lung mass [R91.8] 09/07/2011 09/21/2019 Postmenopausal atrophic vaginitis [N95.2] 05/01/2012 Heavy alcohol use [F10.90] 01/14/2013 Epidural abscess [G06.2] 09/16/2013 04/28/2014 Chest pain, atypical [R07.89] 12/15/2013 04/28/2014 SOB (shortness of breath) [R06.02] 12/15/2013 04/28/2014 Degenerative arthritis of lumbar spine [M47.816]05/06/2014 Arnold-Chiari malformation (HCC) [Q07.00] 09/22/2014 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] 09/22/2014 Cervical spondylosis without myelopathy [M47.81*02/21/2015 Essential hypertension, benign [I10] 02/21/2015 Emphysema of lung (HCC) [J43.9] 03/18/2015 Osteoporosis [M81.0] 09/01/2015 Overactive bladder [N32.81] 09/01/2015 HSV (herpes simplex virus) anogenital infection*02/08/2016 09/21/2019 Asthma with COPD with exacerbation (HCC) [J44.1]09/05/2016 Nocturnal muscle cramps [R25.2] 09/11/2016 09/21/2019 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] 10/10/2016 09/21/2019 Carpal tunnel syndrome, right [G56.01] 01/03/2017 09/21/2019 Chronic anxiety [F41.9] 06/17/2018 Lumbar radiculopathy [M54.16] 04/19/2020 Herpes [B00.9] 01/27/2021 Ex-smoker [Z87.891] 01/27/2021 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] 01/27/2021 History of 2019 novel coronavirus disease (COVI*01/27/2021 Multiple thyroid nodules [E04.2] 01/27/2021 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] 01/27/2021 Medicare annual wellness visit, subsequent [Z00*01/27/2021 Medication management [Z79.899] 01/27/2021 Elevated blood sugar [R73.9] 01/27/2021 Abnormal toxicological findings [R89.2] 02/01/2021 Lung nodules [R91.8] 05/30/2021 GERD without esophagitis [K21.9] 09/12/2022 Living will on file at physician's office [Z78.*09/27/2022 Advance directive discussed with patient [Z71.8*09/27/2022 Ectatic thoracic aorta (HCC) [I77.810] 12/04/2022 Chronic bilateral low back pain with sciatica [*07/15/2023 Encounter for screening mammogram for breast ca*06/09/2024 Pain in left hip [M25.552] 09/29/2024 (more content not included)... [facility] SP/HP.SP.Soheila 10-20-2024 SP/HP.SP.EV [facility] [address] [place] [address]. [address] [place] [address] / REHABILITATION SERVICES INITIAL EVALUATION MR#: [id number] Acct: [id number] Name: JENA RAMIREZ Rep #: [id number] : 1955 69 From: Yossi Robison M.A., [facility] Referring Dr.: Dr. 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 She reports about half of those episodes she is able to cough up bits of food. In 2017 and 2018 she had esophageal impactions and went to ER for removal. She has a history of COPD and Asthma also. Patient has not been evaluated by GI since being in ER per her report. Food allergies Fish Containing Products Allergy, shellfish derived Allergy Other history: Vitamin D toxicity, Former smoker, Asthma, COPD (chronic obstructive pulmonary disease), Hypertension, Partial small bowel obstruction, COVID-19, Emphysema of lung, Benign essential HTN, Lung mass, Climacteric Lumbar spinal stenosis, Peripheral neuropathy, Recurrent manic disorder, Generalized hyperhidrosis, RODRIGUEZ (dyspnea on exertion), Anxiety associated with depression, Chronic pain disorder, Sleep-related breathing disorder, Stage 2 moderate COPD by GOLD classification, Esophageal obstruction due to food impaction, Arnold-Chiari deformity, Alcohol abuse, Osteoporosis Medications related to this diagnosis: omeprazole, please see chart for other medications. Smoking Status: Former smoker Diagnosis Diagnosis: Dysphagia, unspecified Pain Is pain an issue with your current prescribed condition?: No Personal Preferred language: Kyrgyz Patient Allergies Allergies Allergies: Allergies Fish Containing Products Allergy (Severe, Verified 09/15/24 11:18) Angioedema shellfish derived Allergy (Severe, Verified 09/15/24 11:18) Angioedema Horse/Equine Containing Products Allergy (Unknown, Verified 09/15/24 11:18) NEEDS FOLLOW-UP lisinopril Allergy (Unknown, Verified 09/15/24 11:18) Unknown Subjective Dysphagia Symptoms Reported Symptoms/Problems with: Coughing, Choking, Difficulty Swallowing Solids and Difficulty Swallowing Liquids Current Diet Solids Current Diet: Regular Current Diet Liquids Current Liquids: Thin Objective Dysphagia Administered by Administered by: Self Thin Liquids Administred via: Cup Bolus clearance: fully cleared Gagging: No Cough: none observed/unable to assess Pharyngeal phase: suspect pharyngeal deficits Patient Report: No deficits reported during swallowing today as she previously stated deficits are intermittent for coughing. Regular Oral Preparation: WNL Oral Transit: WNL Bolus clearance: fully cleared Gagging: No Cough: none observed/unable to assess Pharyngeal phase: suspect pharyngeal deficits Patient Report: No reported deficits today as she reported that difficulty is intermittent. Impact Impact on Safety Functioning: Risk for Aspiration Recommendations Modified Barium Swallow/Cookie Swallow Recommended: Yes Swallowing Treatment: Yes Diet Texture Recommendations Solids: Regular (Level 7) Liquids: Thin (Level 0) Schwarz free water Protocol: No Safety Saftey Precautions/Swallowing Recommendations (Check all that Apply): Reduce Distractions, Small Sips Bites when Eating and Other (Specify Below) Other: Chew thoroughly. Results Swallowing Within Normal Limits: No Swallowing Diagnosis: Dysphagia Unspecified (R13.10) Objective Oral Motor Oral Status Dentition: Upper Dentures Labial Impairment: WNL Closure: WNL Pucker: WNL Retraction: WNL Alternating Pucker/Retraction: WNL Involuntary Movement noted: No Lingual Impairment: WNL Protrusion: WNL Retraction: WNL Lateralization: WNL Involuntary Movement: No Jaw Impairment: WNL Involuntary Movement: No Respiratory Status Respiratory Status: Room Air Swallowing Performance Scale Swallowing Performance Scale Swallowing Performance Scale Result: 3 Mild Reference: Neuro-QoL instrument Radiation Oncology Patient Plan Plan Plan: Speech therapy is recommended to address dysphagia. Recommend MBSS for further assessment of swallow function and esophageal screening. After MBSS is complete, patient is to return to outpatient for education and training on diet recommendations from MBSS along with exercises. Recommendations Treatment Warranted: Yes Treatmen (more content not included)... Normal [facility] CNTHERAPYon 10-13-2024 CNTHERAPY OT/PT/Speech Visit ( PTWS) ----- ASHLEYIBANSwapnil Alcantar ([id number]) 1955 F Date Time Provider Department 10/13/24 10:30 AM MARY ANN OSCAR PTWS Date Time Provider Department [place] 10/13/2024 10:30 AM [id number] ANN OSCAR PTWS Osman Lam Reason for Visit: PT Discharge [752] Primary Visit Diagnosis:Pain in left hip [M25.552] Allergies As of Date: 10/13/2024 Noted Allergy Reaction FISH 06/23/2005 16 - Unknown HORSE/EQUINE CONTAINING PRODUCTS 08/30/2023 16 - Unknown LISINOPRIL 12/07/2015 3 - Cough SHELLFISH DERIVED 08/30/2023 16 - Unknown Date Reviewed: 10/01/2024 Reviewed by: Rito Camp MD - Fully Assessed Prescriptions as of 10/27/2024 - Melatonin 5 mg cap Take 2 capsules by mouth daily at bedtime. - QUEtiapine (SEROQUEL) 25 mg tablet Take 1 tablet by mouth daily at bedtime. - celecoxib (CELEBREX) 200 mg capsule Take 1 capsule by mouth once daily. - traZODone (DESYREL) 150 mg tablet Take 1 tablet by mouth daily at bedtime. - amLODIPine (NORVASC) 2.5 mg tablet Take 1 tablet by mouth once daily. - Dextromethorphan-guaiFENe sin (ROBITUSSIN COUGH-CHEST ESTEFANÍA DM) 5-100 mg/5 mL liqd Take 10 mL by mouth every 4 hours as needed. - acyclovir (ZOVIRAX) 400 mg tablet Take 1 tablet by mouth two times a day. - omeprazole (PRILOSEC) 40 mg capsule Take 1 capsule by mouth once daily. - hydrOXYzine HCl (ATARAX) 10 mg tablet Take 1 tablet by mouth daily at bedtime. - FOLIC ACID ORAL Take by mouth as directed. - ZINC ORAL Take by mouth as directed. - SYMBICORT 160-4.5 mcg/actuation inhaler - BIOTIN ORAL Take 5,000 mcg by mouth. - ascorbic acid/collagen hydr (COLLAGEN PLUS VITAMIN C ORAL) Take 1,000 mg by mouth twice daily. - albuterol HFA (PROAIR HFA) 90 mcg/actuation inhaler Inhale 2 Puffs as instructed every 4 hours as needed for Wheezing/Shortness of Breath. - Ascorbic Acid (VITAMIN C) 1,000 mg TbER Take by mouth. - Calcium Carb-Cholecalciferol (CALCIUM 600 WITH VITAMIN D3) 600-200 mg-unit ORAL Tab Take one(1) tablet two(2) times daily. Aircraft Accessories Mechanic: Addendum Therapy (PT/OT/Speech/Resp) ID: [id number] 10/13/2024 10:48 AM Author: MARY ANN OSCAR Signed by MARY ANN OSCAR PT on 10/13/2024 at 10:48 AM * * * This document replaces document [id number] * * * Document text: Program_ID:[id number] Access Code: [email or web address] URL: [email or web address] Date: 10-13-2024 Prepared By: Mary Ann Oscar Program Notes Exercises - Supine Double Knee to Chest - 2-3 x daily - 7 x weekly - 1 sets - 3 reps - Supine Single Knee to Chest Stretch - 2-3 x daily - 7 x weekly - 1 sets - 3 reps - Seated Flexion Stretch - 2-3 x daily - 7 x weekly - 4 sets - 10 reps - Seated Transversus Abdominis Bracing - 1 x daily - 7 x weekly - 4 sets - 10 reps Normal [facility] THERAPY NTon 10-13-2024 THERAPY NT HNO ID: [id number] Author: MARY ANN OSCAR, PT Service: ? Author Type: Physical Therapist Type: Therapy (PT/OT/Speech/Resp) Filed: 10/13/2024 10:48 Note Text: Program_ID:[id number] Access Code: [email or web address] URL: [email or web address] Date: 10-13-2024 Prepared By: Mary Ann Oscar Program Notes Exercises - Supine Double Knee to Chest - 2-3 x daily - 7 x weekly - 1 sets - 3 reps - Supine Single Knee to Chest Stretch - 2-3 x daily - 7 x weekly - 1 sets - 3 reps - Seated Flexion Stretch - 2-3 x daily - 7 x weekly - 4 sets - 10 reps - Seated Transversus Abdominis Bracing - 1 x daily - 7 x weekly - 4 sets - 10 reps Normal [facility] CNOVon 10-01-2024 CNOV Office Visit (FAMWS ) ----- DIONY RAMIREZ ([id number]) 1955 F Date Time Provider Department 10/01/24 10:00 AM [facility] During your visit today, we recorded the following information about you: Pulse Blood pressure Weight Height 83/minute 138/77 41.5 kg 1.422 m Rito Camp MD 10/01/2024 8:22 PM Signed Diony Ramirez is a 69 year old female here for a Medicare wellness visit. Medicare Health Risk Assessment General Health Fair Exercise: Minutes/Day 20 min Exercise: Days/Week 3 days Alcohol: Daily Use 4 or more times a week Alcohol: Drinks/Day 5 or 6 Alcohol: 6 or more drinks Daily or almost daily Feel off balance No Concerns: Teeth/Dentures No Concerns: Sexual function No Troubled by feelings None of the above Frequency: Eating healthy diet Not at all ADLs requiring help None of the above Safety precautions in home/vehicle Yes Smoke, vape, chews tobacco No Difficulty hearing No Difficulty seeing Yes Current Providers Specialists: I have reviewed specialist-related care of the patient in the medical record. Current care team: Patient Care Team: Rito Camp MD as PCP - General (Family Medicine) Suleman Gustafson as Grain Merchandising Manager Alex Brown APRN.SENIOR INFORMATICA DEVELOPER as Outpatient Case Manager (Family Medicine) Shanita Green PA-C as Outpatient Case Manager (Family Medicine) Dr. Epstein: Pin management Dr. Shore: Urology and stopped going. Medical/Family history review Reviewed and updated problem list, medical/surgical/family/s ocial history, medications, and allergies. Opioid use review Opioid Medications (last 90 days) No data to display Anxiety/Depression screening PHQ-9 Score: 4 (Minimal Depression) LJ-7 Score: 2 (Minimal Anxiety) Recommendation: continuing current treatment plan Cognitive screening Mini Cog Score: 5 Cognitive screening reviewed and No further action needed (score 3-5). Functional Observation Was the patient's Timed Up AND Go test unsteady or >= 12 seconds? No Advance Care Planning Surrogate decision maker documented and/or advance directives scanned in chart Measurements BP 138/77 Pulse 83 Ht 142.2 cm (4' 8) Wt 41.5 kg (91 lb 6.4 oz) LMP 03/23/2007 BMI 20.49 kg/m? Vision Screening: Follows with optometry/ophthalmology Assessment/Plan Medicare annual wellness visit, subsequent (Z00.00) - Counseled on healthy diet and regular exercise - Fall avoidance information provided - Personalized prevention plan provided See Below Chief Complaint Patient presents with: Medicare Wellness Exam HPI Diony Ramirez is a 69 year old female who presents here today for Chronic Medical Conditions. and Medicare Annual Visit. Patient with Hx of Asthma/COPD seeing Dr. Gustafson, chronic anxiety, HTN, Manic disorder, arnold-chiari malformation, insomnia, heavy alcohol intake, herpes, ex-smoker, chronic neck and lumbar pain as well as those reviewed and addressed below and in ROS. Patient doing ok. Her left hip has been bothering her more and wonders if she can take something daily for this. Sh also still does not sleep well. Will fl asleep and then wakes up around 1:30 AM and can't get back to sleep. Past medical history, appointments, medications, allergies reviewed. Previous Medical History PAST MEDICAL HISTORY Diagnosis Date Abnormal toxicological findings 02/01/2021 Tox screen 01/27/2021 showed no benzos and pos for oxycodone which patient was not on. Patient informed of no further controlled med refills. 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 Chronic anxiety 06/17/2018 Degenerative arthritis of lumbar spine 05/06/2014 Ectatic thoracic aorta (HCC) 12/04/2022 CT done 12/2022 Elevated blood sugar 01/27/2021 Emphysema of lung ([facility]) 03/18/2015 Essential hypertension, benign 02/21/2015 Ex-smoker 01/27/2021 Started around 89 and quit 2004. Smoked about 1.5 PPD GERD without esophagitis 09/12/2022 Herpes 01/27/2021 History of 2019 novel coronavirus disease (COVID-19) 01/27/202106/2020 History of small bowel obstruction HSV (herpes simplex virus) anogenital infection 02/08/2016 Living will on file at physician's office 09/27/2022 DPA: Reina Chamorrot (aunt) Lung mass 09/07/2011 Lung nodules 05/30/[address] Suleman Gustafson Medicare annual wellness visit, subsequent 01/27/2021 Medicare Part B: NA Last done: Multiple thyroid nodules 01/27/[address] Vigil and f/u was stable. Told no need for further f/u. Osteoporosis 09/01/2015 Fosamax restarted 01/2019 Overactive bladder 09/01/2015 Post-COVID syndrome 01/27/2021 Chest tightness relieved by kala (more content not included)... [facility] [id number] 09-29-2024 [id number] HNO ID: [id number] Author: MARY ANN OSCAR, PT Service: ? Author Type: Physical Therapist Type: [id number] Filed: 09/29/2024 12:43 Note Text: [facility] Physical Therapy Plan of Care Certification Patient Name: Diony Ramirez : 1955 [facility] #: [id number] Date: 09/29/2024 To: Shanita Green PA-C From Therapist: Mary Ann Oscar PT RE: Patient Certification/ Recertification Your review, approval and electronic signature are required in order to comply with Payor: [employer] / Plan: [employer] MEDICARE ADVANTAGE HMO / Product Type: HMO / regulations. The identified Physical Therapy PLAN OF CARE for the patient is as follows: M25.552 Pain in left hip (primary encounter diagnosis) PLAN OF CARE: Assessment: Diony Ramirez presents with diagnosis of pain in the left hip that interferes with sitting . The patient presents with impairments in ADL's, gait, independence in exercise, joint mobility, overall function, patient reported outcome measures, posture, range of motion, strength, symptom management, and tissue tenderness. PROMIS? (Patient-Reported Outcomes Measurement Information System) scores were reviewed and identified as a rehabilitation concern. Prognosis for therapy is Fair due to: chronic nature of impairments, poor understanding of deficits, limited compliance with previous therapy . The patient will benefit from skilled therapy services to meet the goals established for this plan of care as noted below. Classification Pain Mechanism Classification: Nociplastic/Central Low Back Pain Classification: Symptom Modulation Goals for Episode of Care: established 09/29/24 Independent in home exercises. Patient will decrease pain rating by 2 points to meet minimal clinical important difference for numeric pain rating scale. Restore pain-free lumbar ROM to minimal to no limitation grossly without increased pain to allow for ADLs. Stand / Walk 1-2 hours without increased pain/symptoms. Sleep through night without pain/symptoms. Patient will be able to tolerate functional activities for 300-40 minutes without increased symptoms. Patient Goals: reduce back and hip pain Time Frame for Goals and Treatment : 11/10/24 Planned Interventions, Frequency, and Duration: Current Frequency: 1x/week Duration: 6 weeks Total Number of Visits Planned: 6 Planned Treatment Interventions: Therapeutic exercise (48080), Neuromuscular re-education (56398), Manual therapy (06115), Therapeutic activities (16995), Self-longterm management (70909), Gait Training (89784) PLAN FOR NEXT VISIT: Pt. has $35 co-pay and states that she can only do a limited amount of visits. Patient demonstrates good understanding of plan of care and treatment. The above goals and plan of care were discussed and agreed upon by patient/family. For further details regarding this patient refer to the Physical Therapy electronically documented visit dated 09/29/2024. Provider Attestation I have reviewed the treatment plan for Diony Ramirez, [facility]# [id number] for the period of 09/29/24 -- 11/10/24, established on 09/29/2024. Signature certifies the need for therapy services. [facility] CNTHERAPYon 09-29-2024 CNTHERAPY OT/PT/Speech Visit ( PTWS) ----- DIONY RAMIREZ ([id number]) 1955 F Date Time Provider Department 09/29/24 12:00 PM MARY ANN OSCAR PTWS Date Time Provider Department Center 09/29/2024 12:00 PM [id number] ANN OSCAR PTWS Osman Lam Reason for Visit: PT Eval [747] Primary Visit Diagnosis:Pain in left hip [M25.552] Allergies As of Date: 09/29/2024 Noted Allergy Reaction FISH 06/23/2005 16 - Unknown HORSE/EQUINE CONTAINING PRODUCTS 08/30/2023 16 - Unknown LISINOPRIL 12/07/2015 3 - Cough SHELLFISH DERIVED 08/30/2023 16 - Unknown Date Reviewed: 08/03/2024 Reviewed by: Mila Kidd MA - Fully Assessed Prescriptions as of 09/29/2024 - Dextromethorphan-guaiFENe sin (ROBITUSSIN COUGH-CHEST ESTEFANÍA DM) 5-100 mg/5 mL liqd Take 10 mL by mouth every 4 hours as needed. - acyclovir (ZOVIRAX) 400 mg tablet Take 1 tablet by mouth two times a day. - omeprazole (PRILOSEC) 40 mg capsule Take 1 capsule by mouth once daily. - traZODone (DESYREL) 150 mg tablet Take 1 tablet by mouth daily at bedtime. - amLODIPine (NORVASC) 2.5 mg tablet Take 1 tablet by mouth once daily. - hydrOXYzine HCl (ATARAX) 10 mg tablet Take 1 tablet by mouth daily at bedtime. - FOLIC ACID ORAL Take by mouth as directed. - ZINC ORAL Take by mouth as directed. - SYMBICORT 160-4.5 mcg/actuation inhaler - BIOTIN ORAL Take 5,000 mcg by mouth. - ascorbic acid/collagen hydr (COLLAGEN PLUS VITAMIN C ORAL) Take 1,000 mg by mouth twice daily. - albuterol HFA (PROAIR HFA) 90 mcg/actuation inhaler Inhale 2 Puffs as instructed every 4 hours as needed for Wheezing/Shortness of Breath. - Melatonin 5 mg cap 5 mg by mouth taken 2 hours prior to bedtime - Ascorbic Acid (VITAMIN C) 1,000 mg TbER Take by mouth. - Calcium Carb-Cholecalciferol (CALCIUM 600 WITH VITAMIN D3) 600-200 mg-unit ORAL Tab Take one(1) tablet two(2) times daily. Aircraft Accessories Mechanic: Therapy (PT/OT/Speech/Resp) ID: [id number] 09/29/2024 12:26 PM Author: MARY ANN OSCAR Signed by MARY ANN OSCAR PT on 09/29/2024 at 12:26 PM Document text: Program_ID:[id number] Access Code: [email or web address] URL: [email or web address] Date: 09-29-2024 Prepared By: Mary Ann Oscar Program Notes Exercises - Supine Double Knee to Chest - 2-3 x daily - 7 x weekly - 1 sets - 3 reps - Supine Single Knee to Chest Stretch - 2-3 x daily - 7 x weekly - 1 sets - 3 reps - Supine Transversus Abdominis Bracing - Hands on Stomach - 2-3 x daily - 7 x weekly - 4 sets - 10 reps - Supine Transversus Abdominis Bracing - Hands on Ground - 2-3 x daily - 7 x weekly - 2 sets - 5 reps Normal [facility] THERAPY NTon 09-29-2024 THERAPY NT HNO ID: [id number] Author: MARY ANN OSCAR PT Service: ? Author Type: Physical Therapist Type: Therapy (PT/OT/Speech/Resp) Filed: 09/29/2024 12:26 Note Text: Program_ID:[id number] Access Code: [email or web address] URL: [email or web address] Date: 09-29-2024 Prepared By: Mary Ann sOcar Program Notes Exercises - Supine Double Knee to Chest - 2-3 x daily - 7 x weekly - 1 sets - 3 reps - Supine Single Knee to Chest Stretch - 2-3 x daily - 7 x weekly - 1 sets - 3 reps - Supine Transversus Abdominis Bracing - Hands on Stomach - 2-3 x daily - 7 x weekly - 4 sets - 10 reps - Supine Transversus Abdominis Bracing - Hands on Ground - 2-3 x daily - 7 x weekly - 2 sets - 5 reps Normal [facility] 25(OH)D3 SerPl-mCncon 2024 25-hydroxyvitamin D3 [Mass/Vol] 57.6 ng/mL Normal 31.0-80.0 [facility] Comment on above: Order Comment: Speci men Type: BLOOD SPECIMEN Ordering Facility: [facility] Address: [address] [place] [address] Result Comment: Clas sification of 25 [place] Vitamin D status: Deficiency/Insufficiency: < or = 30 ng/ml. Sufficiency/Optimal Levels: 31-80 ng/mL Toxicity: > 100 ng/mL. Test performed by chemiluminescent immunoassay. Performed By: #### 1 989-3 #### [facility] CLIA [id number] [address] [place] [address] [place] [address] [place] CBC W Auto Differential pane l (Bld)on 09-24-2024 Basophils (Bld) [#/Vol] 0.09 10*3/uL Normal <0.11 [facility] Comment on above: Order Comment: Speci men Type: BLOOD SPECIMENOrdering Facility: [facility] Address: [address] [place] [address] Performed By: #### 5 7021-8 ####[facility] [id number] [place] [address] [place] Basophils/100 WBC (Bld) 1.4 % Normal [facility] Comment on above: Order Comment: Speci men Type: BLOOD SPECIMENOrdering Facility: [facility] Address: [address] [place] [address] Performed By: #### 5 7021-8 ####[facility] [id number] [place] [address] [place] Differential cell count method Nom (Bld) Auto Normal [facility] Comment on above: Order Comment: Speci men Type: BLOOD SPECIMENOrdering Facility: [facility] Address: [address] [place] [address] Performed By: #### 5 7021-8 ####[facility] [id number] [place] [address] [place] Eosinophils (Bld) [#/Vol] 0.21 10*3/uL Normal <0.46 [facility] Comment on above: Order Comment: Speci men Type: BLOOD SPECIMENOrdering Facility: [facility] Address: [address] [place] [address] Performed By: #### 5 7021-8 ####[facility] [id number] [place] [address] [place] Eosinophils/100 WBC (Bld) 3.2 % Normal [facility] Comment on above: Order Comment: Speci men Type: BLOOD SPECIMENOrdering Facility: [facility] Address: [address] [place] [address] Performed By: #### 5 7021-8 ####[facility] [id number] [place] [address] [place] Erythrocyte distribution width (RBC) [Ratio] 12.8 % Normal 11.5-15.0 [facility] Comment on above: Order Comment: Speci men Type: BLOOD SPECIMENOrdering Facility: [facility] Address: [address] [place] [address] Performed By: #### 5 7021-8 ####[facility] [id number] [place] [address] [place] Hematocrit (Bld) [Volume fraction] 45.3 % Normal 36.0-46.0 [facility] Comment on above: Order Comment: Speci men Type: BLOOD SPECIMENOrdering Facility: [facility] Address: [address] [place] [address] Performed By: #### 5 7021-8 ####[facility]IA [id number] [place] [address] [place] Hemoglobin (Bld) [Mass/Vol] 14.7 g/dL Normal 11.5-15.5 [facility] Comment on above: Order Comment: Speci men Type: BLOOD SPECIMENOrdering Facility: [facility] Address: [address] [place] [address] Performed By: #### 5 7021-8 ####[facility] LABIA [id number] [place] [address] [place] Immature granulocytes (Bld) [#/Vol] 10*3/uL Normal <0.10 [facility] Comment on above: Order Comment: Speci men Type: BLOOD SPECIMENOrdering Facility: [facility] Address: [address] [place] [address] Performed By: #### 5 7021-8 ####[facility] [id number] [place] [address] [place] Immature granulocytes/100 WBC (Bld) 0.3 % Normal [facility] Comment on above: Order Comment: Speci men Type: BLOOD SPECIMENOrdering Facility: [facility] Address: [address] [place] [address] Performed By: #### 5 7021-8 ####[facility] LABCLIA [id number] [place] [address] [place] Lymphocytes (Bld) [#/Vol] 1.58 10*3/uL Normal 1.00-4.00 [facility] Comment on above: Order Comment: Speci men Type: BLOOD SPECIMENOrdering Facility: [facility] Address: [address] [place] [address] Performed By: #### 5 7021-8 ####[facility] LABCLIA [id number] [place] [address] [place] Lymphocytes/100 WBC (Bld) 24.1 % Normal [facility] Comment on above: Order Comment: Speci men Type: BLOOD SPECIMENOrdering Facility: [facility] Address: [address] [place] [address] Performed By: #### 5 7021-8 ####[facility] LABCLIA [id number] [place] [address] [place] MCH (RBC) [Entitic mass] 33.1 pg Normal 26.0-34.0 [facility] Comment on above: Order Comment: Speci men Type: BLOOD SPECIMENOrdering Facility: [facility] Address: [address] [place] [address] Performed By: #### 5 7021-8 ####[facility] LABCLIA [id number] [place] [address] [place] MCHC (RBC) [Mass/Vol] 32.5 g/dL Normal 30.5-36.0 [facility] Comment on above: Order Comment: Speci men Type: BLOOD SPECIMENOrdering Facility: [facility] Address: [address] [place] [address] Performed By: #### 5 7021-8 ####[facility] LABCLIA [id number] [place] [address] [place] MCV (RBC) [Entitic vol] 102.0 fL High 80.0-100.0 [facility] Comment on above: Order Comment: Speci men Type: BLOOD SPECIMENOrdering Facility: [facility] Address: [address] [place] [address] Performed By: #### 5 7021-8 ####[facility] LABCLIA [id number] [place] [address] [place] Monocytes (Bld) [#/Vol] 0.62 10*3/uL Normal <0.87 [facility] Comment on above: Order Comment: Speci men Type: BLOOD SPECIMENOrdering Facility: [facility] Address: [address] [place] [address] Performed By: #### 5 7021-8 ####[facility]IA [id number] [place] [address] [place] Monocytes/100 WBC (Bld) 9.5 % Normal [facility] Comment on above: Order Comment: Speci men Type: BLOOD SPECIMENOrdering Facility: [facility] Address: [address] [place] [address] Performed By: #### 5 7021-8 ####[facility] LABCLIA [id number] [place] [address] [place] Neutrophils (Bld) [#/Vol] 4.03 10*3/uL Normal 1.45-7.50 [facility] Comment on above: Order Comment: Speci men Type: BLOOD SPECIMENOrdering Facility: [facility] Address: [address] [place] [address] Performed By: #### 5 7021-8 ####[facility] LABCLIA [id number] [place] [address] [place] Neutrophils/100 WBC (Bld) 61.5 % Normal [facility] Comment on above: Order Comment: Speci men Type: BLOOD SPECIMENOrdering Facility: [facility] Address: [address] [place] [address] Performed By: #### 5 7021-8 ####[facility] LABCLIA [id number] [place] [address] [place] Nucleated RBC (Bld) [#/Vol] 10*3/uL Normal <0.01 [facility] Comment on above: Order Comment: Speci men Type: BLOOD SPECIMENOrdering Facility: [facility] Address: [address] [place] [address] Performed By: #### 5 7021-8 ####[facility] LABCLIA [id number] [place] [address] [place] Nucleated RBC/100 WBC (Bld) [Ratio] 0.0 /100 WBC Normal [facility] Comment on above: Order Comment: Speci men Type: BLOOD SPECIMENOrdering Facility: [facility] Address: [address] [place] [address] Performed By: #### 5 7021-8 ####[facility] LABCLIA [id number] [place] [address] [place] Platelet mean volume (Bld) [Entitic vol] 9.6 fL Normal 9.0-12.7 [facility] Comment on above: Order Comment: Speci men Type: BLOOD SPECIMENOrdering Facility: [facility] Address: [address] [place] [address] Performed By: #### 5 7021-8 ####[facility] LABCLIA [id number] [place] [address] [place] Platelets (Bld) [#/Vol] 293 10*3/uL Normal 150-400 [facility] Comment on above: Order Comment: Speci men Type: BLOOD SPECIMENOrdering Facility: [facility] Address: [address] [place] [address] Performed By: #### 5 7021-8 ####[facility] LABCLIA [id number] [place] [address] [place] RBC (Bld) [#/Vol] 4.44 10*6/uL Normal 3.90-5.20 [facility] Comment on above: Order Comment: Speci men Type: BLOOD SPECIMENOrdering Facility: [facility] Address: [address] [place] [address] Performed By: #### 5 7021-8 ####[facility] LABCLIA [id number] [place] [address] [place] WBC (Bld) [#/Vol] 6.55 10*3/uL Normal 3.70-11.00 [facility] Comment on above: Order Comment: Speci men Type: BLOOD SPECIMENOrdering Facility: [facility] Address: [address] [place] [address] Performed By: #### 5 7021-8 ####[facility] LABCLIA [id number] [place] [address] [place] Comprehensive metabolic 2000 panelon 09-24-2024 Albumin [Mass/Vol] 4.1 g/dL Normal 3.9-4.9 [facility] Comment on above: Order Comment: Speci men Type: BLOOD SPECIMEN [facility] Address: [address] [place] [address] Performed By: #### 2 132-9, 06901-3 #### [facility] CLIA [id number] [address] [place] [address] [place] ALP [Catalytic activity/Vol] 66 U/L Normal 34-123 [facility] Comment on above: Order Comment: Speci men Type: BLOOD SPECIMEN [facility] Address: [address] [place] [address] Performed By: #### 2 132-9, 68489-1 #### [facility] CLIA [id number] [address] [place] [address] [place] ALT [Catalytic activity/Vol] 15 U/L Normal 7-38 [facility] Comment on above: Order Comment: Speci men Type: BLOOD SPECIMEN [facility] Address: [address] [place] [address] Performed By: #### 2 132-9, 21481-7 #### [facility] CLIA [id number] [address] [place] [address] [place] Anion gap [Moles/Vol] 10 mmol/L Normal 8-15 [facility] Comment on above: Order Comment: Speci men Type: BLOOD SPECIMEN [facility] Address: [address] [place] [address] Performed By: #### 2 132-9, 77371-1 #### [facility] CLIA [id number] [address] [place] [address] [place] AST [Catalytic activity/Vol] 23 U/L Normal 13-35 [facility] Comment on above: Order Comment: Speci men Type: BLOOD SPECIMEN [facility] Address: [address] [place] [address] Performed By: #### 2 132-9, 19903-7 #### [facility] CLIA [id number] [address] [place] [address] [place] Bilirubin [Mass/Vol] 0.5 mg/dL Normal 0.2-1.[address] [facility] Comment on above: Order Comment: Speci men Type: BLOOD SPECIMEN [facility] Address: [address] [place] [address] Performed By: #### 2 132-9, 76140-9 #### [facility] CLIA [id number] [place] [address] [place] Calcium [Mass/Vol] 8.8 mg/dL Normal 8.5-10.2 [facility] Comment on above: Order Comment: Speci men Type: BLOOD SPECIMEN [facility] Address: [address] [place] [address] Performed By: #### 2 132-9, 59248-2 #### [facility] CLIA [id number] [address] [place] [address] [place] Chloride [Moles/Vol] 101 mmol/L Normal 98-[address] [facility] Comment on above: Order Comment: Speci men Type: BLOOD SPECIMEN [facility] Address: [address] [place] [address] Performed By: #### 2 132-9, 92916-0 #### [facility] CLIA [id number] [address] [place] [address] [place] CO2 [Moles/Vol] 26 mmol/L Normal 22-30 [facility] Comment on above: Order Comment: Speci men Type: BLOOD SPECIMEN [facility] Address: [address] [place] [address] Performed By: #### 2 132-9, #### [facility] CLIA [id number] [address] [place] [address] [place] Creatinine [Mass/Vol] 0.67 mg/dL Normal 0.58-0.96 [facility] Comment on above: Order Comment: Speci men Type: BLOOD SPECIMEN [facility] Address: [address] [place] [address] Performed By: #### 2 132-9, 20746-8 #### [facility] CLIA [id number] [address] [place] [address] [place] Creatinine and Glomerular filtration rate.predicted panel (S/P/Bld) 95 mL/min/1.73m??? Normal >=60 [facility] Comment on above: Order Comment: Speci men Type: BLOOD SPECIMEN [facility] Address: [address] [place] [address] Result Comment: Marlin mated Glomerular Filtration Rate (eGFR) is calculated using the 2020 CKD-EPI creatinine equation. This equation utilizes serum creatinine, sex, and age as parameters. The creatinine assay has traceable calibration to isotope dilution-mass spectrometry. Refer to KDIGO guidelines for clinical interpretation. In patients with unstable renal function, e.g. those with acute kidney injury, the eGFR may not accurately reflect actual GFR. Performed By: #### 2 132-9, 01492-9 #### [facility] CLIA [id number] [address] [place] [address] [place] Glucose [Mass/Vol] 90 mg/dL Normal 74-99 [facility] Comment on above: Order Comment: Crow chavarria Type: BLOOD SPECIMEN [facility] Address: [address] [place] [address] Result Comment: The [place] Diabetes Association (ADA) provides guidance for cutoff values for fasting glucose and random glucose. The ADA defines fasting as no caloric intake for at least 8 hours. Fasting plasma glucose results between 100 to 125 mg/dL indicate increased risk for diabetes (prediabetes). Fasting plasma glucose results greater than or equal to 126 mg/dL meet the criteria for diagnosis of diabetes. In the absence of unequivocal hyperglycemia, results should be confirmed by repeat testing. In a patient with classic symptoms of hyperglycemia or hyperglycemic crisis, random plasma glucose results greater than or equal to 200 mg/dL meet the criteria for diagnosis of diabetes. Reference: Standards of Medical Care in Diabetes 2016, [place] [employer] Association. Diabetes Care. 2016.39(Suppl 1). Performed By: #### 2 132-9, 89616-8 #### [facility] CLIA [id number] [address] [place], [place] [address] [place] Potassium [Moles/Vol] 4.1 mmol/L Normal 3.7-5.1 [facility] Comment on above: Order Comment: Crow chavarria Type: BLOOD SPECIMEN [facility] Address: [address] [place], [place] [address] Performed By: #### 2 132-9, 18260-0 #### [facility] CLIA [id number] [address] [place] [address] [place] Protein [Mass/Vol] 6.5 g/dL Normal 6.3-8.0 [facility] Comment on above: Order Comment: Speci men Type: BLOOD SPECIMEN [facility] Address: [address] [place] [address] Performed By: #### 2 132-9, 71364-1 #### [facility] CLIA [id number] [address] [place] [address] [place] Sodium [Moles/Vol] 137 mmol/L Normal 136-144 [facility] Comment on above: Order Comment: Speci men Type: BLOOD SPECIMEN [facility] Address: [address] [place] [address] Performed By: #### 2 132-9, 12728-0 #### [facility] CLIA [id number] [address] [place] [address] [place] Urea nitrogen [Mass/Vol] 14 mg/dL Normal 7-21 [facility] Comment on above: Order Comment: Speci men Type: BLOOD SPECIMEN [facility] Address: [address] [place] [address] Performed By: #### 2 132-9, 55338-9 #### [facility] CLIA [id number] [address] [place] [address] [place] HbA1c (Bld)on 09-24-2024 Average glucose Estimated from glycated hemoglobin (Bld) [Mass/Vol] 94 mg/dL Normal [facility] Comment on above: Order Comment: Speci men Type: BLOOD SPECIMEN [facility] Address: [address] [place] [address] Result Comment: eAG: (Estimated average glucose) is a calculated value from HgbA1c and is brewery representative of the average blood glucose level in the last 2-3 month period. Performed By: #### 5 5454-3 #### [facility] CLIA [id number] [address] [place] [address] [place] HbA1c (Bld) [Mass fraction] 4.9 % Normal 4.3-5.6 [facility] Comment on above: Order Comment: Speci men Type: BLOOD SPECIMEN [facility] Address: [address] [place] [address] Result Comment: [place] Diabetes Association guidelines indicate that patients with HgbA1c in the range 5.7-6.4% are at increased risk for development of diabetes, and intervention by lifestyle modification may be beneficial. HgbA1c greater or equal to 6.5% is considered diagnostic of diabetes. Performed By: #### 5 5454-3 #### [facility] CLIA [id number] [address] [place] [address] [place] Iron and Iron binding capaci ty panelon 09-24-2024 Iron [Mass/Vol] 96 ug/dL Normal 41-186 [facility] Comment on above: Order Comment: Speci men Type: BLOOD SPECIMEN [facility] Address: [address] [place] [address] Performed By: #### L [id number], HCOAG #### [facility] CLIA [id number] [address] [place] [address] [place] Iron binding capacity [Mass/Vol] 391 ug/dL High 232-386 [facility] Comment on above: Order Comment: Speci men Type: BLOOD SPECIMEN [facility] Address: [address] [place] [address] Performed By: #### L [id number], HCOAG #### [facility] CLIA [id number] [address] [place] [address] [place] Iron/TIBC [Molar ratio] 24.6 % Normal 15.0-57.0 [facility] Comment on above: Order Comment: Speci men Type: BLOOD SPECIMEN [facility] Address: [address] [place] [address] Performed By: #### L [id number], HCOAG #### [facility] CLIA [id number] [address] [place] [address] [place] LIPID PANEL, NONFASTINGon Cholesterol [Mass/Vol] 193 mg/dL Normal <200 [facility] Comment on above: Order Comment: Speci men Type: BLOOD SPECIMEN [facility] Address: [address] [place] [address] Result Comment: <200 mg/dL, Desirable 200-239 mg/dL, Borderline high >239 mg/dL, High Performed By: #### L [id number], HCOAG #### [facility] CLIA [id number] [address] [place] [address] [place] HDL CHOLESTEROL, NF 99 mg/dL Normal >39 [facility] Comment on above: Order Comment: Speci men Type: BLOOD SPECIMEN [facility] Address: [address] [place] [address] Result Comment: 40-5 9 mg/dL, Acceptable >59 mg/dL, High: Negative risk factor for coronary heart disease <40 mg/dL, Low: Positive risk factor for coronary heart disease Performed By: #### L [id number], HCOAG #### [facility] CLIA [id number] [address] [place] [address] [place] LDL CHOLESTEROL, NF 79 mg/dL Normal <100 [facility] Comment on above: Order Comment: Speci men Type: BLOOD SPECIMEN [facility] Address: [address] [place] [address] Result Comment: <100 mg/dL, Optimal 100-129 mg/dL, Near optimal/above optimal 130-159 mg/dL, Borderline high 160-189 mg/dL, High >189 mg/dL, Very high Secondary prevention optimal LDL Cholesterol levels are recommended to be < 70 mg/dL Performed By: #### L [id number], HCOAG #### [facility] CLIA [id number] [address] [place] [address] OF [facility] LDL/HDL RATIO, NF 0.80 mg/dL Normal <2.54 [facility] Comment on above: Order Comment: Speci men Type: BLOOD SPECIMEN [facility] Address: [address] [place] [address] Result Comment: Refe rence: 1. National Cholesterol Education Program ATP III Guideline At-A-Glance Quick Desk Reference: National Heart, Lung, and Blood Candia. National Institutes of Health. 2001: NIH Publication No. 01-3305. 2. An International Atherosclerosis Society position paper: global recommendations for the management of dyslipidemia: executive summary, Atherosclerosis. 2014: 232(2):410-413. Performed By: #### L [id number], HCOAG #### [facility] CLIA [id number] [address] [place] [address] [place] NON HDL CHOL, NF 94 mg/dL Normal <130 [facility] Comment on above: Order Comment: Crow chavarria Type: BLOOD SPECIMEN [facility] Address: [address] [place] [address] Result Comment: <130 mg/dL, Optimal 130-159 mg/dL, Near optimal/above optimal 160-189 mg/dL, Borderline high 190-219 mg/dL, High >219 mg/dL, Very high Secondary prevention optimal non HDL Cholesterol levels are recommended to be <100 mg/dL Performed By: #### L [id number], HCOAG #### [facility] CLIA [id number] [address] [place] [address] OF [facility] T CHOL/HDL RATIO NF 1.95 mg/dL Normal <5.10 [facility] Comment on above: Order Comment: Crow men Type: BLOOD SPECIMEN [facility] Address: [address] [place] [address] Performed By: #### L [id number], HCOAG #### [facility] CLIA [id number] [address] [place] [address] [place] TRIGLYCERIDES, NF 76 mg/dL Normal <150 [facility] Comment on above: Order Comment: Speci men Type: BLOOD SPECIMEN [facility] Address: [address] [place] [address] Result Comment: <150 mg/dL, Normal 150-199 mg/dL, Borderline high 200-499 mg/dL, High >499 mg/dL, Very high Performed By: #### L [id number], HCOAG #### [facility] CLIA [id number] [address] [place] [address] [place] VLDL CHOLESTEROL, NF 15 mg/dL Normal <[address] [facility] Comment on above: Order Comment: Speci men Type: BLOOD SPECIMEN [facility] Address: [address] [place] [address] Performed By: #### L [id number], HCOAG #### [facility] CLIA [id number] [address] [place] [address] [place] Magnesium SerPl-mCncon 09-24 Magnesium [Mass/Vol] 2.2 mg/dL Normal 1.7-2.[address] [facility] Comment on above: Order Comment: Speci men Type: BLOOD SPECIMEN [facility] Address: [address] [place] [address] Performed By: #### L [id number], HCOAG #### [facility] CLIA [id number] [address] [place] [address] [place] TSH SerPl-aCncon 09-24-2024 TSH Qn 1.160 m[IU]/L Normal 0.270-4.200 [facility] Comment on above: Order Comment: Speci men Type: BLOOD SPECIMEN [facility] Address: [address] [place] [address] Performed By: #### L [id number], HCOAG #### [facility] CLIA [id number] [address] [place] [address] [place] Urinalysis complete panel (U )on 09-24-2024 Bacteria LM.HPF (Urine sed) [#/Area] Negative Normal Negative [facility] Comment on above: Order Comment: Speci men Type: BLOOD SPECIMEN [facility] Address: [address] [place] [address] Performed By: #### 1 989-3 #### [facility] CLIA [id number] [address] [place] [address] [place] Bilirubin Ql (U) Negative Normal Negative [facility] Comment on above: Order Comment: Speci men Type: BLOOD SPECIMEN [facility] Address: [address] [place] [address] Performed By: #### 1 989-3 #### [facility] CLIA [id number] [address] [place] [address] [place] Clarity (Unsp spec) Clear Normal Clear [facility] Comment on above: Order Comment: Speci men Type: BLOOD SPECIMEN [facility] Address: [address] [place] [address] Performed By: #### 1 989-3 #### [facility] CLIA [id number] [address] [place] [address] [place] Color (U) Yellow Normal Yellow [facility] Comment on above: Order Comment: Speci men Type: BLOOD SPECIMEN [facility] Address: [address] [place] [address] Performed By: #### 1 989-3 #### [facility] CLIA [id number] [address] [place] [address] [place] Epithelial cells LM.HPF (Urine sed) [#/Area] None Seen Normal [facility] Comment on above: Order Comment: Speci men Type: BLOOD SPECIMEN [facility] Address: [address] [place] [address] Performed By: #### 1 989-3 #### [facility] CLIA [id number] [address] [place] [address] [place] Glucose Test strip (U) [Mass/Vol] Negative Normal Negative [facility] Comment on above: Order Comment: Speci men Type: BLOOD SPECIMEN [facility] Address: [address] [place] [address] Performed By: #### 1 989-3 #### [facility] CLIA [id number] [address] [place] [address] [place] Hemoglobin Ql (U) Negative Normal Negative [facility] Comment on above: Order Comment: Speci men Type: BLOOD SPECIMEN [facility] Address: [address] [place] [address] Performed By: #### 1 989-3 #### [facility] CLIA [id number] [address] [place] [address] [place] Hyaline casts (Urine sed) [#/Area] 0 /[LPF] Normal 0 /LPF [facility] Comment on above: Order Comment: Speci men Type: BLOOD SPECIMEN Ordering Facility: [facility] Address: [address] [place] [address] Performed By: #### 1 989-3 #### [facility] CLIA [id number] [address] [place] [address] [place] Ketones Ql (U) Negative Normal Negative [facility] Comment on above: Order Comment: Speci men Type: BLOOD SPECIMEN Ordering Facility: [facility] Address: [address] [place] [address] Performed By: #### 1 989-3 #### [facility] CLIA [id number] [address] [place] [address] [place] Leukocyte esterase Test strip Ql (U) Negative Normal Negative [facility] Comment on above: Order Comment: Speci men Type: BLOOD SPECIMEN Ordering Facility: [facility] Address: [address] [place] [address] Performed By: #### 1 989-3 #### [facility] CLIA [id number] [address] [place] [address] [place] Nitrite Ql (U) Negative Normal Negative [facility] Comment on above: Order Comment: Speci men Type: BLOOD SPECIMEN Ordering Facility: [facility] Address: [address] [place] [address] Performed By: #### 1 989-3 #### [facility] CLIA [id number] [address] [place] [address] [place] pH (U) 8.5 [pH] High <8.5 [facility] Comment on above: Order Comment: Speci men Type: BLOOD SPECIMEN Ordering Facility: [facility] Address: [address] [place] [address] Performed By: #### 1 989-3 #### [facility] CLIA [id number] [address] [place] [address] [place] Protein (U) [Mass/Vol] Trace Abnormal Negative [facility] Comment on above: Order Comment: Speci men Type: BLOOD SPECIMEN Ordering Facility: [facility] Address: [address] [place] [address] Performed By: #### 1 989-3 #### [facility] CLIA [id number] [address] [place] [address] [place] RBC LM.HPF (Urine sed) [#/Area] 0-2 /HPF Normal 0-2 /HPF [facility] Comment on above: Order Comment: Speci men Type: BLOOD SPECIMEN Ordering Facility: [facility] Address: [address] [place] [address] Performed By: #### 1 989-3 #### [facility] CLIA [id number] [address] [place] [address] [place] Specific gravity (U) [Rel density] 1.015 Normal 1.005-1.030 [facility] Comment on above: Order Comment: Speci men Type: BLOOD SPECIMEN Ordering Facility: [facility] Address: [address] [place] [address] Performed By: #### 1 989-3 #### [facility] CLIA [id number] [address] [place] [address] [place] Urobilinogen Ql (U) 0.2 EU/dL Normal 0.2-1.0 EU/dL [facility] Comment on above: Order Comment: Speci men Type: BLOOD SPECIMEN Ordering Facility: [facility] Address: [address] [place] [address] Performed By: #### 1 989-3 #### [facility] CLIA [id number] [address] [place] [address] [place] WBC LM.HPF (Urine sed) [#/Area] 0-5 /HPF Normal 0-5 /HPF [facility] Comment on above: Order Comment: Speci men Type: BLOOD SPECIMEN Ordering Facility: [facility] Address: [address] [place] [address] Performed By: #### 1 989-3 #### [facility] CLIA [id number] [address] [place] [address] [place] [facility]2 025 Cobalamin (Vitamin B12) [Mass/Vol] 1367 pg/mL High 232-1245 [facility] Comment on above: Order Comment: Speci men Type: BLOOD SPECIMEN Ordering Facility: [facility] Address: [address] [place] [address] Performed By: #### 2 132-9, 33021-4 #### [facility] CLIA [id number] [address] [place] [address] [place] Joel 09-15-2024 CNPN Telephone (FAMPWS) ----- DIONY RAMIREZ ([id number]) 1955 F Date Time Provider Department 09/15/24 [facility] During your visit today, we recorded the following information about you: Kasey Becker LPN 09/15/2024 1:12 PM Signed Patient calling she had appt today in Pulmonary office with Letha Emery VOLTAGE TESTER at Dr Suleman Gustafson office. Asking for a copy of the CR Chest report faxed to [phone]. Printed report from 12/2022 and faxed as requested. Allergies As of Date: 09/15/2024 Noted Allergy Reaction FISH 06/23/2005 16 - Unknown HORSE/EQUINE CONTAINING PRODUCTS 08/30/2023 16 - Unknown LISINOPRIL 12/07/2015 3 - Cough SHELLFISH DERIVED 08/30/2023 16 - Unknown Date Reviewed: 08/03/2024 Reviewed by: Mila Kidd MA - Fully Assessed Reason for Visit: fax copy of CT Chest to Pulmonary Dr Suleman Gustafson office [Other] Prescriptions as of 09/15/2024 - Dextromethorphan-guaiFENe sin (ROBITUSSIN COUGH-CHEST ESTEFANÍA DM) 5-100 mg/5 mL liqd Take 10 mL by mouth every 4 hours as needed. - acyclovir (ZOVIRAX) 400 mg tablet Take 1 tablet by mouth two times a day. - omeprazole (PRILOSEC) 40 mg capsule Take 1 capsule by mouth once daily. - traZODone (DESYREL) 150 mg tablet Take 1 tablet by mouth daily at bedtime. - amLODIPine (NORVASC) 2.5 mg tablet Take 1 tablet by mouth once daily. - hydrOXYzine HCl (ATARAX) 10 mg tablet Take 1 tablet by mouth daily at bedtime. - FOLIC ACID ORAL Take by mouth as directed. - ZINC ORAL Take by mouth as directed. - SYMBICORT 160-4.5 mcg/actuation inhaler - BIOTIN ORAL Take 5,000 mcg by mouth. - ascorbic acid/collagen hydr (COLLAGEN PLUS VITAMIN C ORAL) Take 1,000 mg by mouth twice daily. - albuterol HFA (PROAIR HFA) 90 mcg/actuation inhaler Inhale 2 Puffs as instructed every 4 hours as needed for Wheezing/Shortness of Breath. - Melatonin 5 mg cap 5 mg by mouth taken 2 hours prior to bedtime - Ascorbic Acid (VITAMIN C) 1,000 mg TbER Take by mouth. - Calcium Carb-Cholecalciferol (CALCIUM 600 WITH VITAMIN D3) 600-200 mg-unit ORAL Tab Take one(1) tablet two(2) times daily. Problem List As Of Date 09/15/2024 Noted Resolved Chronic interstitial cystitis [N30.10] 04/08/2006 Adjustment disorder with depressed mood [F43.21]05/20/2006 09/21/2019 Insomnia, unspecified [G47.00] 05/20/2006 Generalized hyperhidrosis [R61] 05/20/2006 Contact dermatitis and other eczema, due to uns*02/05/2008 12/07/2015 Cervicalgia [M54.2] 07/26/2008 09/21/2019 Pain in joint, shoulder region [M25.519] 07/26/2008 03/18/2017 Manic disorder, recurrent episode, moderate (HC*08/18/2008 Contact dermatitis and other eczema due to othe*02/03/2009 12/07/2015 Disorders of bursae and tendons in shoulder reg*02/26/2009 12/07/2015 Lumbar spinal stenosis [M48.061] 08/05/2009 Climacteric [N95.1] 01/13/2010 08/07/2016 Lung mass [R91.8] 09/07/2011 09/21/2019 Postmenopausal atrophic vaginitis [N95.2] 05/01/2012 Heavy alcohol use [F10.90] 01/14/2013 Epidural abscess [G06.2] 09/16/2013 04/28/2014 Chest pain, atypical [R07.89] 12/15/2013 04/28/2014 SOB (shortness of breath) [R06.02] 12/15/2013 04/28/2014 Degenerative arthritis of lumbar spine [M47.816]05/06/2014 Arnold-Chiari malformation (HCC) [Q07.00] 09/22/2014 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] 09/22/2014 Cervical spondylosis without myelopathy [M47.81*02/21/2015 Essential hypertension, benign [I10] 02/21/2015 Emphysema of lung (HCC) [J43.9] 03/18/2015 Osteoporosis [M81.0] 09/01/2015 Overactive bladder [N32.81] 09/01/2015 HSV (herpes simplex virus) anogenital infection*02/08/2016 09/21/2019 Asthma with COPD with exacerbation (HCC) [J44.1]09/05/2016 Nocturnal muscle cramps [R25.2] 09/11/2016 09/21/2019 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] 10/10/2016 09/21/2019 Carpal tunnel syndrome, right [G56.01] 01/03/2017 09/21/2019 Chronic anxiety [F41.9] 06/17/2018 Lumbar radiculopathy [M54.16] 04/19/2020 Herpes [B00.9] 01/27/2021 Ex-smoker [Z87.891] 01/27/2021 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] 01/27/2021 History of 2019 novel coronavirus disease (COVI*01/27/2021 Multiple thyroid nodules [E04.2] 01/27/2021 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] 01/27/2021 Medicare annual wellness visit, subsequent [Z00*01/27/2021 Medication management [Z79.899] 01/27/2021 Elevated blood sugar [R73.9] 01/27/2021 Abnormal toxicological findings [R89.2] 02/01/2021 Lung nodules [R91.8] 05/30/2021 GERD without esophagitis [K21.9] 09/12/2022 Living will on file at physician's office [Z78.*09/27/2022 Advance directive discussed with patient [Z71.8*09/27/2022 Ectatic thoracic aorta (HCC) [I77.810] 12/04/2022 Chronic bilateral low back pain with sciatica [*07/15/2023 Encounter for screening mammogram for breast ca*06/09/2024 Encounter Status:Closed by KASEY BECKER on 09/15/24 [facility] Pulmonary Visit Reporton Pulmonary Visit Report [facility] [place] [address] [place] [address] OFFICE VISIT Date of Service: 09/15/24 MR#: [id number] Acct: [id number] Name: JENA RAMIREZ Rep #: [id number] : 1955 Provider: Letha Emery NP Age/Sex: 69/F [place] [facility] [place] Status: Signed Assessment and Plan Assessment and Plan (1) Asthma-COPD overlap syndrome: Status: Chronic Plan: The patient has used Symbicort and as needed albuterol. She did received the generic Symbicort and would prefer to not proceed with trial of triple therapy that has been offered today. She would like to give the generic Symbicort time. I have offered a trial of triple therapy, not due to lung volume results but to determine if there would be improvement in symptoms. The patient is in agreement to ipratropium bromide trial to see if improved control of allergic rhinitis improves respiratory symptoms. She does not appear to be in an exacerbation of COPD today. There is no need for prednisone or antibiotic therapy. Patient was advised to contact our office with any worsening in her breathing quality and/or increasing reliance on her short acting beta agonist. (2) Nicotine dependence, cigarettes, in remission: Status: Chronic Plan: She remains clinically stable. Continue with smoking cessation- strongly encouraged. Recommend follow-up low-dose CT scan in December 2024. The patient would like to coordinate the following of her aortic aneurysm. I have requested records from PCP to determine how he plans to follow. I suspect that he will follow with a non contrast CT. At this point, I have no indication for a non-contrast CT, only for low dose screening lung CT. Likely, the best way to proceed is for the PCP to fax results of non contrast CT that appears to be due in December 2024 for us to review for lung nodules. Medications: New ipratropium bromide administer into each nostril 2 sprays intranasal TID 15 mL 3RF Plan Details Follow Up: December 2024 (LMR) HPI HPI Comments Details: The patient is a 69-year-old female who presents to the clinic today for a follow-up office visit to discuss recent test results. She has a history of asthma -COPD overlap syndrome and history of smoking. She is ambulatory and currently on room air. The patient initially presented in August 2016 for evaluation of dyspnea.??? She reported an extensive medical history which included depression, alcoholism, previous tobacco abuse and chronic pain syndrome, for which she is prescribed opiates.??? The patient has a smoking history that includes 1.5 packs/day x 25 years.??? The patient quit smoking completely in 2010. Pulmonary function studies last completed in December 2021 demonstrated an irreversible mild large airways obstructive ventilatory defect with preserved diffusing capacity. There was evidence of hyperinflation and air trapping. Surface echocardiogram from May 2021 demonstrated normal LV size and function with an ejection fraction of 65%. Right ventricular systolic pressure was estimated to be 20 mmHg. The patient indicates that her respiratory symptoms have been stable. She does continue to have shortness of breath with exertion, specifically inclines. She reports that in the past her respiratory symptoms have been worse. She reports that she is choking on saliva and that food has stuck in throat at times. In the past, she has had to go to ER years ago for esophageal difficulty and the suggestion was to consider esophageal dilation for narrowing of my esophagus. She reports that this does not happen frequently. She has a non productive cough, sinus drainage. Denies wheezing, congestion, chest pain or tightness. She does not routinely use albuterol. She has not required use of prednisone or antibiotic therapy since last follow-up. She does have occasional dry nonproductive cough. She reports that she is able to choke easily when swallowing food. She feels that the food dislodges and reports that she has a narrow esophagus . She has not pursued esophageal dilatation but does report that she is implementing speech therapy recommendations with meals. She continues to utilize Symbicort 2 inhalations twice daily and as needed albuterol. Unfortunately the cost of Symbicort has become cost prohibitive and patient is looking for an alternative inhaler, she indicates that her insurance will cover generic Symbicort. She reports that she does rinse her mouth after inhaler use. She has not had recent difficulty with sore throat or thrush. Her weight and appetite have been stable. She denies any fevers, hemoptysis, chills, and night sweats. She has received her influenza vaccine for the 2023 flu season and did receive RSV vaccine in 2022. She is a former smoker, quit 7 years ago. She has a history of acute bronchial asthma a (more content not included)... Normal [facility] 09-08-2024 [facility] Telephone ([facility]) ----- DIONY RAMIREZ ([id number]) 1955 F Date Time Provider Department 09/08/24 [facility] During your visit today, we recorded the following information about you: Elizabeth Eckert LPN 09/08/2024 11:34 AM Signed Pt calls to report that she has an appt 10/01/24 - Wellness visit. Pt would like to get labs done before appt. Pt wants same labs that were done Sep 2023. Pt wants to make sure iron and Vit D are checked also. Please review. Call pt when lab orders have been placed. MANDIE Barron Rayanne, PA-C 09/08/2024 12:33 PM Signed Labs placed Kasey Becker LPN 09/08/2024 12:52 PM Signed Phoned patient aware fasting lab work orders in computer for her to complete. Allergies As of Date: 09/08/2024 Noted Allergy Reaction FISH 06/23/2005 16 - Unknown HORSE/EQUINE CONTAINING PRODUCTS 08/30/2023 16 - Unknown LISINOPRIL 12/07/2015 3 - Cough SHELLFISH DERIVED 08/30/2023 16 - Unknown Date Reviewed: 08/03/2024 Reviewed by: Mila Kidd MA - Fully Assessed Reason for Visit: Lab Orders [1688] Primary Visit Diagnosis:Arnold-Chiari malformation (HCC) [Q07.00] Other Visit Diagnoses:Asthma with COPD with exacerbation (HCC) [J44.1] Ex-smoker [Z87.891] GERD without esophagitis [K21.9] Heavy alcohol use [F10.90] Multiple thyroid nodules [E04.2] Elevated blood sugar [R73.9] Medication management [Z79.899] Essential hypertension, benign [I10] Osteoporosis, unspecified osteoporosis type, unspecified pathological fracture presence [M81.0] Order(s):VITAMIN B12 [SQB12] Order #: [id number] FUTURE COMPREHENSIVE METABOLIC PANEL [SQCMP] Order #: [id number] FUTURE THYROID STIMULATING HORMONE [SQTSH] Order #: [id number] FUTURE URINALYSIS, WITH MICROSCOPIC [SQUAWMIC] Order #: [id number] FUTURE LIPID PANEL, NONFASTING [SQLIPNF] Order #: [id number] FUTURE MAGNESIUM [SQMG1] Order #: [id number] FUTURE COMPLETE BLOOD COUNT AND DIFFERENTIAL [SQCBCDIF] Order #: [id number] FUTURE HEMOGLOBIN A1C [SRDYM7D] Order #: [id number] FUTURE IRON AND TIBC [SQIRON] Order #: [id number] FUTURE VITAMIN D 25 HYDROXY [SQVITD] Order #: [id number] FUTURE Prescriptions as of 09/08/2024 - Dextromethorphan-guaiFENe sin (ROBITUSSIN COUGH-CHEST ESTEFANÍA DM) 5-100 mg/5 mL liqd Take 10 mL by mouth every 4 hours as needed. - acyclovir (ZOVIRAX) 400 mg tablet Take 1 tablet by mouth two times a day. - omeprazole (PRILOSEC) 40 mg capsule Take 1 capsule by mouth once daily. - traZODone (DESYREL) 150 mg tablet Take 1 tablet by mouth daily at bedtime. - amLODIPine (NORVASC) 2.5 mg tablet Take 1 tablet by mouth once daily. - hydrOXYzine HCl (ATARAX) 10 mg tablet Take 1 tablet by mouth daily at bedtime. - FOLIC ACID ORAL Take by mouth as directed. - ZINC ORAL Take by mouth as directed. - SYMBICORT 160-4.5 mcg/actuation inhaler - BIOTIN ORAL Take 5,000 mcg by mouth. - ascorbic acid/collagen hydr (COLLAGEN PLUS VITAMIN C ORAL) Take 1,000 mg by mouth twice daily. - albuterol HFA (PROAIR HFA) 90 mcg/actuation inhaler Inhale 2 Puffs as instructed every 4 hours as needed for Wheezing/Shortness of Breath. - Melatonin 5 mg cap 5 mg by mouth taken 2 hours prior to bedtime - Ascorbic Acid (VITAMIN C) 1,000 mg TbER Take by mouth. - Calcium Carb-Cholecalciferol (CALCIUM 600 WITH VITAMIN D3) 600-200 mg-unit ORAL Tab Take one(1) tablet two(2) times daily. Problem List As Of Date 09/08/2024 Noted Resolved Chronic interstitial cystitis [N30.10] 04/08/2006 Adjustment disorder with depressed mood [F43.21]05/20/2006 09/21/2019 Insomnia, unspecified [G47.00] 05/20/2006 Generalized hyperhidrosis [R61] 05/20/2006 Contact dermatitis and other eczema, due to uns*02/05/2008 12/07/2015 Cervicalgia [M54.2] 07/26/2008 09/21/2019 Pain in joint, shoulder region [M25.519] 07/26/2008 03/18/2017 Manic disorder, recurrent episode, moderate (HC*08/18/2008 Contact dermatitis and other eczema due to othe*02/03/2009 12/07/2015 Disorders of bursae and tendons in shoulder reg*02/26/2009 12/07/2015 Lumbar spinal stenosis [M48.061] 08/05/2009 Climacteric [N95.1] 01/13/2010 08/07/2016 Lung mass [R91.8] 09/07/2011 09/21/2019 Postmenopausal atrophic vaginitis [N95.2] 05/01/2012 Heavy alcohol use [F10.90] 01/14/2013 Epidural abscess [G06.2] 09/16/2013 04/28/2014 Chest pain, atypical [R07.89] 12/15/2013 04/28/2014 SOB (shortness of breath) [R06.02] 12/15/2013 04/28/2014 Degenerative arthritis of lumbar spine [M47.816]05/06/2014 Arnold-Chiari malformation (HCC) [Q07.00] 09/22/2014 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] 09/22/2014 Cervical spondylosis without myelopathy [M47.81*02/21/2015 Essential hypertension, benign [I10] 02/21/2015 Emphysema of lung (HCC) [J43.9] 03/18/2015 Osteoporosis [M81.0] 09/01/2015 Overactive bladder [N32.81] 09/01/2015 HSV (herpes simplex virus) anogenital infection*/ (more content not included)... Normal [facility] CNPNon 08-05-2024 CNPN Telephone (FAMPWS) ----- DIONY RAMIREZ ([id number]) 1955 F Date Time Provider Department 08/05/24 [facility] During your visit today, we recorded the following information about you: Shanita Green PA-C 08/05/2024 11:58 AM Signed Let patient know that her xray shows arthritic changes. No acute findings. Would recommend Physical Therapy. MU Biggs Roxanne, MA 08/05/2024 1:57 PM Signed Patient notified and voiced understanding. She is will to try a few visits to see. Please place consult and send to scheduling. AMIRA Núñez Rayanne, PA-C 08/05/2024 2:33 PM Signed Consult placed. Allergies As of Date: 08/05/2024 Noted Allergy Reaction FISH 06/23/2005 16 - Unknown HORSE/EQUINE CONTAINING PRODUCTS 08/30/2023 16 - Unknown LISINOPRIL 12/07/2015 3 - Cough SHELLFISH DERIVED 08/30/2023 16 - Unknown Date Reviewed: 08/03/2024 Reviewed by: Mila Kidd MA - Fully Assessed Reason for Visit: Results [95] Primary Visit Diagnosis:Left hip pain [M25.552] Order(s):CONSULT TO PHYSICAL THERAPY [6608] Order #: [id number]: 1 FUTURE Prescriptions as of 08/07/2024 - predniSONE (DELTASONE) 10 mg tablet Take 3 tablets by mouth once daily for 3 days, THEN 2 tablets once daily for 3 days, THEN 1 tablet once daily for 3 days. - doxycycline (VIBRA-TABS) 100 mg tablet Take 1 tablet by mouth two times a day for 7 days. - Dextromethorphan-guaiFENe sin (ROBITUSSIN COUGH-CHEST ESTEFANÍA DM) 5-100 mg/5 mL liqd Take 10 mL by mouth every 4 hours as needed. - acyclovir (ZOVIRAX) 400 mg tablet Take 1 tablet by mouth two times a day. - omeprazole (PRILOSEC) 40 mg capsule Take 1 capsule by mouth once daily. - traZODone (DESYREL) 150 mg tablet Take 1 tablet by mouth daily at bedtime. - amLODIPine (NORVASC) 2.5 mg tablet Take 1 tablet by mouth once daily. - hydrOXYzine HCl (ATARAX) 10 mg tablet Take 1 tablet by mouth daily at bedtime. - FOLIC ACID ORAL Take by mouth as directed. - ZINC ORAL Take by mouth as directed. - SYMBICORT 160-4.5 mcg/actuation inhaler - BIOTIN ORAL Take 5,000 mcg by mouth. - ascorbic acid/collagen hydr (COLLAGEN PLUS VITAMIN C ORAL) Take 1,000 mg by mouth twice daily. - albuterol HFA (PROAIR HFA) 90 mcg/actuation inhaler Inhale 2 Puffs as instructed every 4 hours as needed for Wheezing/Shortness of Breath. - Melatonin 5 mg cap 5 mg by mouth taken 2 hours prior to bedtime - Ascorbic Acid (VITAMIN C) 1,000 mg TbER Take by mouth. - Calcium Carb-Cholecalciferol (CALCIUM 600 WITH VITAMIN D3) 600-200 mg-unit ORAL Tab Take one(1) tablet two(2) times daily. Problem List As Of Date 08/05/2024 Noted Resolved Chronic interstitial cystitis [N30.10] 04/08/2006 Adjustment disorder with depressed mood [F43.21]05/20/2006 09/21/2019 Insomnia, unspecified [G47.00] 05/20/2006 Generalized hyperhidrosis [R61] 05/20/2006 Contact dermatitis and other eczema, due to uns*02/05/2008 12/07/2015 Cervicalgia [M54.2] 07/26/2008 09/21/2019 Pain in joint, shoulder region [M25.519] 07/26/2008 03/18/2017 Manic disorder, recurrent episode, moderate (HC*08/18/2008 Contact dermatitis and other eczema due to othe*02/03/2009 12/07/2015 Disorders of bursae and tendons in shoulder reg*02/26/2009 12/07/2015 Lumbar spinal stenosis [M48.061] 08/05/2009 Climacteric [N95.1] 01/13/2010 08/07/2016 Lung mass [R91.8] 09/07/2011 09/21/2019 Postmenopausal atrophic vaginitis [N95.2] 05/01/2012 Heavy alcohol use [F10.90] 01/14/2013 Epidural abscess [G06.2] 09/16/2013 04/28/2014 Chest pain, atypical [R07.89] 12/15/2013 04/28/2014 SOB (shortness of breath) [R06.02] 12/15/2013 04/28/2014 Degenerative arthritis of lumbar spine [M47.816]05/06/2014 Arnold-Chiari malformation (HCC) [Q07.00] 09/22/2014 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] 09/22/2014 Cervical spondylosis without myelopathy [M47.81*02/21/2015 Essential hypertension, benign [I10] 02/21/2015 Emphysema of lung (HCC) [J43.9] 03/18/2015 Osteoporosis [M81.0] 09/01/2015 Overactive bladder [N32.81] 09/01/2015 HSV (herpes simplex virus) anogenital infection*02/08/2016 09/21/2019 Asthma with COPD with exacerbation (HCC) [J44.1]09/05/2016 Nocturnal muscle cramps [R25.2] 09/11/2016 09/21/2019 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] 10/10/2016 09/21/2019 Carpal tunnel syndrome, right [G56.01] 01/03/2017 09/21/2019 Chronic anxiety [F41.9] 06/17/2018 Lumbar radiculopathy [M54.16] 04/19/2020 Herpes [B00.9] 01/27/2021 Ex-smoker [Z87.891] 01/27/2021 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] 01/27/2021 History of 2019 novel coronavirus disease (COVI*01/27/2021 Multiple thyroid nodules [E04.2] 01/27/2021 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 Normal [facility] CNOVon 08-03-2024 CNOV Office Visit (FAMWS ) ----- DIONY RAMIREZ ([id number]) 1955 F Date Time Provider Department 08/03/24 9:20 AM ALEX BROWN During your visit today, we recorded the following information about you: Pulse Blood pressure Weight 79/minute 135/78 41.7 kg Alex Brown APRN.[employer]ELOPER 08/03/2024 9:31 AM Signed Chief Complaint Patient presents with: side pain: Left side pain X2 weeks HPI Ibanswapnil Ortiz Ramirez is a 69 year old female who presents here today for Above Complaints.. Patient reports for left side pain x2 weeks. Patient reports she has had pain consistently and it is worse with certain movements like twisting or bending. Past medical history, appointments, medications, allergies reviewed. Previous Medical History PAST MEDICAL HISTORY Diagnosis Date Abnormal toxicological findings 02/01/2021 Tox screen 01/27/2021 showed no benzos and pos for oxycodone which patient was not on. Patient informed of no further controlled med refills. 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 Chronic anxiety 06/17/2018 Degenerative arthritis of lumbar spine 05/06/2014 Ectatic thoracic aorta (HCC) 12/04/2022 CT done 12/2022 Elevated blood sugar 01/27/2021 Emphysema of lung ([facility]) 03/18/2015 Essential hypertension, benign 02/21/2015 Ex-smoker 01/27/2021 Started around 89 and quit 2004. Smoked about 1.5 PPD GERD without esophagitis 09/12/2022 Herpes 01/27/2021 History of 2019 novel coronavirus disease (COVID-19) 01/27/202106/2020 History of small bowel obstruction HSV (herpes simplex virus) anogenital infection 02/08/2016 Living will on file at physician's office 09/27/2022 DPA: Reina Denise (aunt) Lung mass 09/07/2011 Lung nodules 05/30/[address] Suleman Gustafson Medicare annual wellness visit, subsequent 01/27/2021 Medicare Part B: NA Last done: Multiple thyroid nodules 01/27/[address] Vigil and f/u was stable. Told no need for further f/u. 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 Takes mid morning. Substance agreement signed and Tox screen done 12/2020. 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 COLONOSCOPY FLX DX W/COLLJ SPEC WHEN PFRMD 08/19/2006 Repeat in COLONOSCOPY FLX DX W/COLLJ SPEC WHEN PFRMD 06/27/2016 Colonoscopy CRANIOPLASTY SKULL DEF/REPAIR/ BRAIN 09/14/2014 See scanned documents - status post ESOPHAGOGASTRODUODENOSCOP Y TRANSORAL DIAGNOSTIC 06/27/2016 EGD ESOPHAGOGASTRODUODENOSCOP Y TRANSORAL DIAGNOSTIC 06/30/2018 EGD IANDD ABSCESS CMPLX/MULT 07/2013 Epidural abscess- MSSA LIG/TRNSXJ FLP TUBE ABDL/VAG APPR UNI/BI Tubal ligation PAST SURGICAL HISTORY OF spinal surgery PAST SURGICAL HISTORY OF retinal detachment OD, (2 tears) PAST SURGICAL HISTORY OF 2012 back surgery STRESS TEST NUCLEAR 05/23/2021 negative Family History FAMILY HISTORY Problem Relation Age of Onset Hypertension Mother other (cerebral aneurysm) Mother Colon Polyps Father Hypertension Father COPD Father Cancer Father Bladder Cancer other (Past medical history) Father abdominal aneurysm/bladder cancer other (aortic aneurysm) Father Aneurysm Paternal Grandfather Patient Allergies ALLERGIES Allergen Reactions Fish Unknown Horse/Equine Contai* Unknown Lisinopril Cough Shellfish Derived Unknown Current Medications Current Outpatient Medications on File Prior to Visit Medication Sig predniSONE (DELTASONE) 10 mg tablet Take 3 tablets by mouth once daily for 3 days, THEN 2 tablets once daily for 3 days, THEN 1 tablet once daily for 3 days. doxycycline (VIBRA-TABS) 100 mg tablet Take 1 tablet by mouth two times a day for 7 days. Dextromethorphan-guaiFENe sin (ROBITUSSIN COUGH-CHEST ESTEFANÍA DM) 5-100 mg/5 mL liqd Take 10 mL by mouth every 4 hours as needed. phenazopyridine (PYRIDIUM) 100 mg tablet Take 1 tablet by mouth three times a day as needed. (Patient not taking: Reported on 07/31/2024) acyclovir (ZOVIRAX) 400 mg tablet Take 1 tablet by mouth two times a day. omeprazole (PRILOSEC) 40 mg capsule Take 1 capsule by mouth once daily. traZODone (DESYREL) 150 mg tablet Take 1 tablet by mouth daily at bedtime. amLODIPine (NORVASC) 2.5 mg tablet Take 1 (more content not included)... [facility] XR HIP 3V PELV+ AP/LAT LTon 08-03-2024 XR HIP 3V PELV+ AP/LAT LT * * *Final Report* * * DATE OF EXAM: Aug 03 2024 10:22AM WOX [id number] - XR HIP 3V PELV+ AP/LAT LT / PROCEDURE REASON: Left hip pain * * * * Physician Interpretation * * * * EXAMINATION / TECHNIQUE: XR HIP 3V PELV+ AP/LAT LT HISTORY: Acute left hip pain, no known injury. Left hip pain COMPARISON: 08/15/2023. RESULT: No acute fracture or dislocation. Mild left and no significant right hip osteoarthritis. Postoperative and degenerative changes in the lower lumbar spine. IMPRESSION: Mild left hip osteoarthritis. Community Health Educator: [facility] Transcribe Date/Time: Aug 05 2024 5:42A Dictated by : CATHLEEN KYLE MD This examination was interpreted and the report reviewed and electronically signed by: CATHLEEN KYLE MD on Aug 05 2024 5:42AM EST [id number] [facility] CNOVon 07-31-2024 CN Office Visit (UCWSTR ) ----- DIONY RAMIREZ ([id number]) 1955 F Date Time Provider Department 07/31/24 10:45 AM SHANNA [facility] During your visit today, we recorded the following information about you: Temperature Pulse Respiration Blood pressure 99.3 degrees 96/minute 20/minute 148/88 Weight 41.2 kg Shanna Nweton APRN.[facility] 07/31/2024 11:45 AM Signed CC: Patient presents with: Cough: X 3 days HPI: Diony Ramirez is a 69 year old female who presents to the office with complaint of cough, nonproductive for a few days. Symptoms are worsening Associated symptoms includes wheezing and dyspnea. Denies fever, nausea, vomiting , and diarrhea. Treatments tried include nothing so far. with no relief of symptoms. Sick contacts: unknown. History of asthma, frequent episodes of bronchitis, chronic bronchitis, bronchiectasis or COPD: Yes copd Seasonal/environmental allergies: No The ROS is otherwise negative. The patient's pmh, medications, allergies, and past visits are reviewed. PHYSICAL EXAM: BP 148/88 Pulse 96 Temp 37.4 ?C (99.3 ?F) (Left Tympanic) Resp 20 Wt 41.2 kg (90 lb 13.3 oz) LMP 03/23/2007 SpO2 92% BMI 19.66 kg/m? General appearance: alert, cooperative, pleasant, in no acute distress Head: Normocephalic Eyes: EOM's intact, conjunctiva pink and moist, no icterus, sclera white, non-injected Ears: Right ear: External ear/canal- Normal, TM - clear with good landmarks. Left ear: External ear/canal- Normal, TM - clear with good landmarks Oropharynx:moist without lesions, No erythema, exudates or tonsillar hypertrophy. Heart: Negative. RRR without obvious murmur, gallop, or rubs. No ectopy. Lungs: wheezing diffusely PAST MEDICAL HISTORY Diagnosis Date Abnormal toxicological findings 02/01/2021 Tox screen 01/27/2021 showed no benzos and pos for oxycodone which patient was not on. Patient informed of no further controlled med refills. 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 Chronic anxiety 06/17/2018 Degenerative arthritis of lumbar spine 05/06/2014 Ectatic thoracic aorta (HCC) 12/04/2022 CT done 12/2022 Elevated blood sugar 01/27/2021 Emphysema of lung ([facility]) 03/18/2015 Essential hypertension, benign 02/21/2015 Ex-smoker 01/27/2021 Started around 89 and quit 2004. Smoked about 1.5 PPD GERD without esophagitis 09/12/2022 Herpes 01/27/2021 History of 2019 novel coronavirus disease (COVID-19) 01/27/202106/2020 History of small bowel obstruction HSV (herpes simplex virus) anogenital infection 02/08/2016 Living will on file at physician's office 09/27/2022 DPA: Reina Camelia (aunt) Lung mass 09/07/2011 Lung nodules 05/30/[address] Suleman Gustafson Medicare annual wellness visit, subsequent 01/27/2021 Medicare Part B: NA Last done: Multiple thyroid nodules 01/27/[address] Vigil and f/u was stable. Told no need for further f/u. 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 Takes mid morning. Substance agreement signed and Tox screen done 12/2020. 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 COLONOSCOPY FLX DX W/COLLJ SPEC WHEN PFRMD 08/19/2006 Repeat in COLONOSCOPY FLX DX W/COLLJ SPEC WHEN PFRMD 06/27/2016 Colonoscopy CRANIOPLASTY SKULL DEF/REPAIR/ BRAIN 09/14/2014 See scanned documents - status post ESOPHAGOGASTRODUODENOSCOP Y TRANSORAL DIAGNOSTIC 06/27/2016 EGD ESOPHAGOGASTRODUODENOSCOP Y TRANSORAL DIAGNOSTIC 06/30/2018 EGD IANDD ABSCESS CMPLX/MULT 07/2013 Epidural abscess- MSSA LIG/TRNSXJ FLP TUBE ABDL/VAG APPR UNI/BI Tubal ligation PAST SURGICAL HISTORY OF spinal surgery PAST SURGICAL HISTORY OF 2/307 retinal detachment OD, (2 tears) PAST SURGICAL HISTORY OF 2012 back surgery STRESS TEST NUCLEAR 05/23/2021 negative ALLERGIES Fish, Horse/Equine Containing Products, Lisinopril, and Shellfish Derived MEDICATIONS Dextromethorphan-guaiFENe sin (ROBITUSSIN COUGH-CHEST ESTEFANÍA DM) 5-100 mg/5 mL liqd Take 10 mL by mouth every 4 hours as needed. acyclovir (ZOVIRAX) 400 mg tablet Take 1 tablet by mouth two times a day. omeprazole (PRILOSEC) 40 mg capsule Take 1 capsule by mouth once daily. traZODone (DESYREL) 150 mg tablet Take 1 tablet by mouth daily at (more content not included)... [facility] XR CHEST 2V FRONTAL/LATon XR CHEST 2V FRONTAL/LAT * * *Final Report* * * DATE OF EXAM: Jul 31 2024 11:07AM WOX [id number] - XR CHEST 2V FRONTAL/LAT / PROCEDURE REASON: Acute cough * * * * Physician Interpretation * * * * EXAMINATION: CHEST RADIOGRAPH (2 VIEW FRONTAL and LATERAL) CLINICAL HISTORY: Acute cough MQ: XC2_6 EXAM DATE/TIME: 07/31/2024 11:07 AM COMPARISON: Chest x-ray on 04/14/2024 RESULT: Lines, tubes, and devices: None. Lungs and pleura: Small patchy opacities seen in the lower lobe on the lateral view. No lung mass. No pleural effusion. No pneumothorax. Cardiomediastinal silhouette: Stable cardiomediastinal silhouette. Bones and soft tissues: The spine shows right-sided curvature and degenerative changes. IMPRESSION: Small patchy opacities in the lower lobe, raising concern for pneumonia or aspiration. Please clinically correlate. Community Health Educator: [facility] Transcribe Date/Time: Jul 31 2024 11:30A Dictated by : LAURIE KAYE MD This examination was interpreted and the report reviewed and electronically signed by: LAURIE KAYE MD on Jul 31 2024 11:32AM EST [id number] [facility] XR Chest PA and Lateralon IMPRESSION: Small patchy opacities in the lower lobe, raising concern for pneumonia or aspiration. Please clinically correlate. Community Health Educator: [facility] Transcribe Date/Time: Jul 31 2024 11:30A Dictated by : LAURIE KAYE MD This examination was interpreted and the report reviewed and electronically signed by: LAURIE KAYE MD on Jul 31 2024 11:32AM EST DIVISION OF RADIOLOGY * * *Final Report* * * DATE OF EXAM: Jul 31 2024 11:07AM WOX [id number] - XR CHEST 2V FRONTAL/LAT / PROCEDURE REASON: Acute cough * * * * Physician Interpretation * * * * EXAMINATION: CHEST RADIOGRAPH (2 VIEW FRONTAL & LATERAL) CLINICAL HISTORY: Acute cough MQ: XC2_6 EXAM DATE/TIME: 07/31/2024 11:07 AM COMPARISON: Chest x-ray on 04/14/2024 RESULT: Lines, tubes, and devices: None. Lungs and pleura: Small patchy opacities seen in the lower lobe on the lateral view. No lung mass. No pleural effusion. No pneumothorax. Cardiomediastinal silhouette: Stable cardiomediastinal silhouette. Bones and soft tissues: The spine shows right-sided curvature and degenerative changes. DIVISION OF RADIOLOGY Provider, Elder Messer - 07/31/2024 * * *Final Report* * * DATE OF EXAM: Jul 31 2024 11:07AM WOX [id number] - XR CHEST 2V FRONTAL/LAT / PROCEDURE REASON: Acute cough * * * * Physician Interpretation * * * * EXAMINATION: CHEST RADIOGRAPH (2 VIEW FRONTAL & LATERAL) CLINICAL HISTORY: Acute cough MQ: XC2_6 EXAM DATE/TIME: 07/31/2024 11:07 AM COMPARISON: Chest x-ray on 04/14/2024 RESULT: Lines, tubes, and devices: None. Lungs and pleura: Small patchy opacities seen in the lower lobe on the lateral view. No lung mass. No pleural effusion. No pneumothorax. Cardiomediastinal silhouette: Stable cardiomediastinal silhouette. Bones and soft tissues: The spine shows right-sided curvature and degenerative changes. IMPRESSION IMPRESSION: Small patchy opacities in the lower lobe, raising concern for pneumonia or aspiration. Please clinically correlate. Community Health Educator: LEONARDO Transcribe Date/Time: Jul 31 2024 11:30A Dictated by : LAURIE KAYE MD This examination was interpreted and the report reviewed and electronically signed by: LAURIE KAYE MD on Jul 31 2024 11:32AM EST [facility] Radiology Study observation (narrative) [facility] XR Chest PA and LateralOrder ed By: Cc Provider on 07-31-2024 [facility] Pulmonary Visit Reporton Pulmonary Visit Report [facility] [place] [address] [place] [address] OFFICE VISIT Date of Service: 07/21/24 MR#: [id number] Acct: [id number] Name: JENA RAMIREZ Rep #: [id number] : 1955 Provider: Letha Emery NP Age/Sex: 69/F [place] [facility] [place] Status: Signed Assessment and Plan Assessment and Plan (1) Asthma-COPD overlap syndrome: Status: Chronic Plan: The patient has used Symbicort and as needed albuterol. Due to the prohibitive cost I recommend changing from Symbicort to generic Symbicort for now. In regards to the shortness of breath with exertion, the patient may be experiencing hyperinflation and air trapping, no recent PFT. I do recommend completing a PFT at this time, she may benefit from adding LAMA. In the past she was on triple therapy but due to cost she stopped LAMA inhaler. She does not appear to be in an exacerbation of COPD today. There is no need for prednisone or antibiotic therapy. Patient was advised to contact our office with any worsening in her breathing quality and/or increasing reliance on her short acting beta agonist. (2) Nicotine dependence, cigarettes, in remission: Status: Chronic Plan: She remains clinically stable. A lifestyle of continuing with tobacco cessation is strongly encouraged. Recommend follow-up low-dose CT scan in December 2024. Orders: Orders Pulmonary Function Test (Comp) 07/27/24 J44.9 - Chronic obstructive pulmonary disease, unspecified Low Dose CT Lung Screening 6 Months F17.210 - Nicotine dependence, cigarettes, uncomplicated Medications: New budesonide-formoterol 160-4.5 mcg/actuation (Symbicort) 2 inhalations inhalation BID 3 ea 1RF J44.9 - Chronic obstructive pulmonary disease, unspecified Discontinued budesonide-formoterol 160-4.5 mcg/actuation (Symbicort) administer with spacer, rinse mouth after each use Discontinued Reason: Cost Prohibitive 2 puffs inhalation BID 3 ea 3RF copd Plan Details Follow Up: 6-8 weeks HPI HPI Comments Details: The patient is a 69-year-old female who presents to the clinic today for a routine scheduled follow- up office visit due to underlying COPD and history of smoking. The patient initially presented in August 2016 for evaluation of dyspnea.??? She reported an extensive medical history which included depression, alcoholism, previous tobacco abuse and chronic pain syndrome, for which she is prescribed opiates.??? The patient has a smoking history that includes 1.5 packs/day x 25 years.??? The patient quit smoking completely in 2010. Pulmonary function studies last completed in December 2021 demonstrated an irreversible mild large airways obstructive ventilatory defect with preserved diffusing capacity. There was evidence of hyperinflation and air trapping. Surface echocardiogram from May 2021 demonstrated normal LV size and function with an ejection fraction of 65%. Right ventricular systolic pressure was estimated to be 20 mmHg. The patient indicates that her respiratory symptoms have been stable. She does continue to have shortness of breath with exertion, specifically inclines. She also reports chest tightness occurs with exertion. She does not routinely use albuterol. Her symptoms are alleviated with stopping the activity. She denies chest pain, congestion, wheeze. With respiratory illness she will have an increase in shortness of breath, feeling like she is breathing through a skinny straw and worsening cough. She has not required use of prednisone or antibiotic therapy since last follow-up. She does have occasional dry nonproductive cough. She reports that she is able to choke easily when swallowing food. She feels that the food dislodges and reports that she has a narrow esophagus . She has not pursued esophageal dilatation but does report that she is implementing speech therapy recommendations with meals. She continues to utilize Symbicort 2 inhalations twice daily and as needed albuterol. Unfortunately the cost of Symbicort has become cost prohibitive and patient is looking for an alternative inhaler, she indicates that her insurance will cover generic Symbicort. She reports that she does rinse her mouth after inhaler use. She has not had recent difficulty with sore throat or thrush. Her weight and appetite have been stable. She denies any fevers, hemoptysis, chills, and night sweats. She has received her influenza vaccine for the 2023 flu season and did receive RSV vaccine in 2022. Intake Vital Signs 01/22/24 07:22 07/21/24 08:11 Height 4 ft 9 in 4 ft 9 in Weight: 97 lb 91 lb BMI 20.9 19.7 BP 136/75 H 137/80 H Blood Pressure Location Lt brachial Lt brachial Position Sitting Sitting Respiration 18 22 H Pulse 88 82 Pulse Source Monitor Monitor Temp 97.2 F L 96.4 F L T (more content not included)... [facility] 07-02-2024 [facility] Telephone (FAMPWS) ----- DIONY RAMIREZ ([id number]) 1955 F Date Time Provider Department 07/02/24 ALEX BROWN During your visit today, we recorded the following information about you: Alex Brown APRN.[employer]EL[employer] 07/02/2024 9:27 AM Signed Please let patient know her mammogram is negative. Patient should continue with annual screenings. Mila Kidd MA 07/02/2024 11:01 AM Signed Pt notified and verbalized understanding Mila Kidd MA Allergies As of Date: 07/02/2024 Noted Allergy Reaction FISH 06/23/2005 16 - Unknown HORSE/EQUINE CONTAINING PRODUCTS 08/30/2023 16 - Unknown LISINOPRIL 12/07/2015 3 - Cough SHELLFISH DERIVED 08/30/2023 16 - Unknown Date Reviewed: 06/07/2024 Reviewed by: Angelina Paul LPN - Fully Assessed Reason for Visit: Results [95] Prescriptions as of 07/02/2024 - Dextromethorphan-guaiFENe sin (ROBITUSSIN COUGH-CHEST ESTEFANÍA DM) 5-100 mg/5 mL liqd Take 10 mL by mouth every 4 hours as needed. - phenazopyridine (PYRIDIUM) 100 mg tablet Take 1 tablet by mouth three times a day as needed. - acyclovir (ZOVIRAX) 400 mg tablet Take 1 tablet by mouth two times a day. - omeprazole (PRILOSEC) 40 mg capsule Take 1 capsule by mouth once daily. - traZODone (DESYREL) 150 mg tablet Take 1 tablet by mouth daily at bedtime. - amLODIPine (NORVASC) 2.5 mg tablet Take 1 tablet by mouth once daily. - hydrOXYzine HCl (ATARAX) 10 mg tablet Take 1 tablet by mouth daily at bedtime. - FOLIC ACID ORAL Take by mouth as directed. - ZINC ORAL Take by mouth as directed. - SYMBICORT 160-4.5 mcg/actuation inhaler - BIOTIN ORAL Take 5,000 mcg by mouth. - ascorbic acid/collagen hydr (COLLAGEN PLUS VITAMIN C ORAL) Take 1,000 mg by mouth twice daily. - albuterol HFA (PROAIR HFA) 90 mcg/actuation inhaler Inhale 2 Puffs as instructed every 4 hours as needed for Wheezing/Shortness of Breath. - Melatonin 5 mg cap 5 mg by mouth taken 2 hours prior to bedtime - Ascorbic Acid (VITAMIN C) 1,000 mg TbER Take by mouth. - Calcium Carb-Cholecalciferol (CALCIUM 600 WITH VITAMIN D3) 600-200 mg-unit ORAL Tab Take one(1) tablet two(2) times daily. Problem List As Of Date 07/02/2024 Noted Resolved Chronic interstitial cystitis [N30.10] 04/08/2006 Adjustment disorder with depressed mood [F43.21]05/20/2006 09/21/2019 Insomnia, unspecified [G47.00] 05/20/2006 Generalized hyperhidrosis [R61] 05/20/2006 Contact dermatitis and other eczema, due to uns*02/05/2008 12/07/2015 Cervicalgia [M54.2] 07/26/2008 09/21/2019 Pain in joint, shoulder region [M25.519] 07/26/2008 03/18/2017 Manic disorder, recurrent episode, moderate (HC*08/18/2008 Contact dermatitis and other eczema due to othe*02/03/2009 12/07/2015 Disorders of bursae and tendons in shoulder reg*02/26/2009 12/07/2015 Lumbar spinal stenosis [M48.061] 08/05/2009 Climacteric [N95.1] 01/13/2010 08/07/2016 Lung mass [R91.8] 09/07/2011 09/21/2019 Postmenopausal atrophic vaginitis [N95.2] 05/01/2012 Heavy alcohol use [F10.90] 01/14/2013 Epidural abscess [G06.2] 09/16/2013 04/28/2014 Chest pain, atypical [R07.89] 12/15/2013 04/28/2014 SOB (shortness of breath) [R06.02] 12/15/2013 04/28/2014 Degenerative arthritis of lumbar spine [M47.816]05/06/2014 Arnold-Chiari malformation (HCC) [Q07.00] 09/22/2014 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] 09/22/2014 Cervical spondylosis without myelopathy [M47.81*02/21/2015 Essential hypertension, benign [I10] 02/21/2015 Emphysema of lung (HCC) [J43.9] 03/18/2015 Osteoporosis [M81.0] 09/01/2015 Overactive bladder [N32.81] 09/01/2015 HSV (herpes simplex virus) anogenital infection*02/08/2016 09/21/2019 Asthma with COPD with exacerbation (HCC) [J44.1]09/05/2016 Nocturnal muscle cramps [R25.2] 09/11/2016 09/21/2019 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] 10/10/2016 09/21/2019 Carpal tunnel syndrome, right [G56.01] 01/03/2017 09/21/2019 Chronic anxiety [F41.9] 06/17/2018 Lumbar radiculopathy [M54.16] 04/19/2020 Herpes [B00.9] 01/27/2021 Ex-smoker [Z87.891] 01/27/2021 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] 01/27/2021 History of 2019 novel coronavirus disease (COVI*01/27/2021 Multiple thyroid nodules [E04.2] 01/27/2021 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] 01/27/2021 Medicare annual wellness visit, subsequent [Z00*01/27/2021 Medication management [Z79.899] 01/27/2021 Elevated blood sugar [R73.9] 01/27/2021 Abnormal toxicological findings [R89.2] 02/01/2021 Lung nodules [R91.8] 05/30/2021 GERD without esophagitis [K21.9] 09/12/2022 Living will on file at physician's office [Z78.*09/27/2022 Advance directive discussed with patient [Z71.8*09/27/2022 Ectatic thoracic aorta (HCC) [I77.810] 12/04/2022 Chronic bilateral low back pain with sciatica [*07/15/2023 Encounter for screening mammogram for breast ca*06/09/2024 Encounter Status:Closed by WORKMAN MILA VELASQUEZ on 07/02/24 Normal [facility] SCREENINGon 07-01-2024 [facility] SCREENING * * *Final Report* * * DATE OF EXAM: Jul 01 2024 11:46AM RIVERA [id number] - [facility] SCREENING / PROCEDURE REASON: Encounter for screening mammogram for breast cancer * * * * Physician Interpretation * * * * RESULT: [place] [address] [place] [address] HISTORY: Patient is 69 years old and is seen for screening and is asymptomatic in both breasts. Patient states no personal history of breast cancer. Patient states no personal history of other cancers. COMPARISON STUDIES: The present examination has been compared to prior imaging studies dated 07/25/2021 (mammogram), 07/31/2022 (mammogram) and 06/11/2023 (mammogram). MAMMOGRAM TECHNIQUE: The study was acquired using full field digital technology and interpreted from soft copy. Digital Breast Tomosynthesis (DBT) images were obtained and used to assist in the interpretation of this examination. Computer-aided detection was utilized by the radiologist in the interpretation of this examination. MAMMOGRAM FINDINGS: There are scattered areas of fibroglandular density. No suspicious masses, calcifications or other abnormalities are seen in either breast. There are no significant changes from the prior study. IMPRESSION: There is no mammographic evidence of malignancy in either breast. A routine screening mammogram in 1 year is recommended. BI-RADS Category 1: Negative RISK: Based on the Tyrer-Cuzick (TC) risk assessment model, this patient has a 1.7% lifetime risk of developing breast cancer, meaning they are at average risk for developing breast cancer. However, this is only an estimate based on available history provided on the patient's questionnaire. We encourage all patients to talk with their providers about these results, further recommendations for managing breast health, and appropriate supplemental screening options if the patient has dense breast tissue. Interpreting Radiologist: John Pérez M.D. Electronically signed on: 07/02/2024 Community Health Educator: KYLAH Transcribe Date/Time: Jul 01 2024 11:44A Dictated by: JOHN PÉREZ MD This examination was interpreted and the report reviewed and electronically signed by: JOHN PÉREZ MD on Jul 02 2024 8:15AM EST [id number] Normal [facility] 06-10-2024 [facility] Telephone (FAMPWS) ----- ASHLEYDIONY Ortiz ([id number]) 1955 F Date Time Provider Department 06/10/24 [facility] During your visit today, we recorded the following information about you: Good Silva RN 06/10/2024 8:43 AM Signed Patient reports she was seen in [facility] yesterday, and prescribed AB and cough medicine. Reports when she went to the pharmacy, they had the AB Rx, but not the cough medicine Rx. Patient asking if provider was going to send cough medicine Rx. Reports the cough keeps her awake at night. Reports she has COPD and takes BP medication. Please advise patient. Shanna Newton APRN.[facility] 06/10/2024 9:38 AM Signed Let patient know that I called in a cough syrup for her. I apologize that it was not called in yesterday. Neyda Mccartney MA 06/10/2024 9:47 AM Signed Patient notified. Neyda Mccartney MA Allergies As of Date: 06/10/2024 Noted Allergy Reaction FISH 06/23/2005 16 - Unknown HORSE/EQUINE CONTAINING PRODUCTS 08/30/2023 16 - Unknown LISINOPRIL 12/07/2015 3 - Cough SHELLFISH DERIVED 08/30/2023 16 - Unknown Date Reviewed: 06/07/2024 Reviewed by: Angelina Paul LPN - Fully Assessed Reason for Visit: Medication Problem [65] Order(s):Dextromethorphan -guaiFENesin (ROBITUSSIN COUGH-CHEST ESTEFANÍA DM) 5-100 mg/5 mL liqdTake 10 mL by mouth every 4 hours as needed.Disp: 237 mLRfl: 0 Prescriptions as of 06/10/2024 - Dextromethorphan-guaiFENe sin (ROBITUSSIN COUGH-CHEST ESTEFANÍA DM) 5-100 mg/5 mL liqd Take 10 mL by mouth every 4 hours as needed. - azithromycin (ZITHROMAX) 250 mg tablet Take 2 tablets by mouth once daily for 1 day, THEN 1 tablet once daily for 4 days. - nitrofurantoin monohydrate and macrocrystal (MACROBID) 100 mg capsule Take 1 capsule by mouth two times a day with meals for 7 days. - phenazopyridine (PYRIDIUM) 100 mg tablet Take 1 tablet by mouth three times a day as needed. - acyclovir (ZOVIRAX) 400 mg tablet Take 1 tablet by mouth two times a day. - omeprazole (PRILOSEC) 40 mg capsule Take 1 capsule by mouth once daily. - traZODone (DESYREL) 150 mg tablet Take 1 tablet by mouth daily at bedtime. - amLODIPine (NORVASC) 2.5 mg tablet Take 1 tablet by mouth once daily. - hydrOXYzine HCl (ATARAX) 10 mg tablet Take 1 tablet by mouth daily at bedtime. - FOLIC ACID ORAL Take by mouth as directed. - ZINC ORAL Take by mouth as directed. - SYMBICORT 160-4.5 mcg/actuation inhaler - BIOTIN ORAL Take 5,000 mcg by mouth. - ascorbic acid/collagen hydr (COLLAGEN PLUS VITAMIN C ORAL) Take 1,000 mg by mouth twice daily. - albuterol HFA (PROAIR HFA) 90 mcg/actuation inhaler Inhale 2 Puffs as instructed every 4 hours as needed for Wheezing/Shortness of Breath. - Melatonin 5 mg cap 5 mg by mouth taken 2 hours prior to bedtime - Ascorbic Acid (VITAMIN C) 1,000 mg TbER Take by mouth. - Calcium Carb-Cholecalciferol (CALCIUM 600 WITH VITAMIN D3) 600-200 mg-unit ORAL Tab Take one(1) tablet two(2) times daily. Problem List As Of Date 06/10/2024 Noted Resolved Chronic interstitial cystitis [N30.10] 04/08/2006 Adjustment disorder with depressed mood [F43.21]05/20/2006 09/21/2019 Insomnia, unspecified [G47.00] 05/20/2006 Generalized hyperhidrosis [R61] 05/20/2006 Contact dermatitis and other eczema, due to uns*02/05/2008 12/07/2015 Cervicalgia [M54.2] 07/26/2008 09/21/2019 Pain in joint, shoulder region [M25.519] 07/26/2008 03/18/2017 Manic disorder, recurrent episode, moderate (HC*08/18/2008 Contact dermatitis and other eczema due to othe*02/03/2009 12/07/2015 Disorders of bursae and tendons in shoulder reg*02/26/2009 12/07/2015 Lumbar spinal stenosis [M48.061] 08/05/2009 Climacteric [N95.1] 01/13/2010 08/07/2016 Lung mass [R91.8] 09/07/2011 09/21/2019 Postmenopausal atrophic vaginitis [N95.2] 05/01/2012 Heavy alcohol use [F10.90] 01/14/2013 Epidural abscess [G06.2] 09/16/2013 04/28/2014 Chest pain, atypical [R07.89] 12/15/2013 04/28/2014 SOB (shortness of breath) [R06.02] 12/15/2013 04/28/2014 Degenerative arthritis of lumbar spine [M47.816]05/06/2014 Arnold-Chiari malformation (HCC) [Q07.00] 09/22/2014 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] 09/22/2014 Cervical spondylosis without myelopathy [M47.81*02/21/2015 Essential hypertension, benign [I10] 02/21/2015 Emphysema of lung (HCC) [J43.9] 03/18/2015 Osteoporosis [M81.0] 09/01/2015 Overactive bladder [N32.81] 09/01/2015 HSV (herpes simplex virus) anogenital infection*02/08/2016 09/21/2019 Asthma with COPD with exacerbation (HCC) [J44.1]09/05/2016 Nocturnal muscle cramps [R25.2] 09/11/2016 09/21/2019 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] 10/10/2016 09/21/2019 Carpal tunnel syndrome, right [G56.01] 01/03/2017 09/21/2019 Chronic anxiety [F41.9] 06/17/2018 Lumbar radiculopathy [M54.16] 04/19/2020 Herpes [B00.9] 01/27/2021 Ex-smoker [Z87.891] 01/27/2021 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 Normal [facility] CNOVon 06-07-2024 CNOV Office Visit (UCWSTR ) ----- BASIMDIONY SIMS ([id number]) 1955 F Date Time Provider Department 06/07/24 10:45 AM SHANNA NEWTON [facility] During your visit today, we recorded the following information about you: Temperature Pulse Respiration Blood pressure 98.8 degrees 99/minute 22/minute 154/84 Weight 39.5 kg Shanna Newton APRN.[employer] 06/07/2024 11:24 AM Signed CC: Patient presents with: Cough: Chest congestion, heaviness in chest, headache, SOB, sore throat x 3 days HPI: Diony Ramirez is a 69 year old female who presents to the office with complaint of chest congestion and cough, nonproductive for a few days. Symptoms are staying the same. Associated symptoms includes dyspnea. Denies nausea, vomiting , and diarrhea. Treatments tried include nothing so far. with no relief of symptoms. Sick contacts: unknown. History of asthma, frequent episodes of bronchitis, chronic bronchitis, bronchiectasis or COPD: No Smoker: No Seasonal/environmental allergies: No The ROS is otherwise negative. The patient's pmh, medications, allergies, and past visits are reviewed. PHYSICAL EXAM: BP 154/84 Pulse 99 Temp 37.1 ?C (98.8 ?F) Resp 22 Wt 39.5 kg (87 lb 1.3 oz) LMP 03/23/2007 SpO2 95% BMI 18.84 kg/m? General appearance: alert, cooperative, pleasant, in no acute distress Head: Normocephalic Eyes: EOM's intact, conjunctiva pink and moist, no icterus, sclera white, non-injected Ears: Right ear: External ear/canal- Normal, TM - clear with good landmarks. Left ear: External ear/canal- Normal, TM - clear with good landmarks Oropharynx:moist without lesions, No erythema, exudates or tonsillar hypertrophy. Heart: Negative. RRR without obvious murmur, gallop, or rubs. No ectopy. Lungs: wheezing diffusely PAST MEDICAL HISTORY Diagnosis Date Abnormal toxicological findings 02/01/2021 Tox screen 01/27/2021 showed no benzos and pos for oxycodone which patient was not on. Patient informed of no further controlled med refills. 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 Chronic anxiety 06/17/2018 Degenerative arthritis of lumbar spine 05/06/2014 Ectatic thoracic aorta (HCC) 12/04/2022 CT done 12/2022 Elevated blood sugar 01/27/2021 Emphysema of lung ([facility]) 03/18/2015 Essential hypertension, benign 02/21/2015 Ex-smoker 01/27/2021 Started around 89 and quit 2005. Smoked about 1.5 PPD GERD without esophagitis 09/12/2022 Herpes 01/27/2021 History of 2019 novel coronavirus disease (COVID-19) 01/27/202106/2020 History of small bowel obstruction HSV (herpes simplex virus) anogenital infection 02/08/2016 Living will on file at physician's office 09/27/2022 DPA: Reina Chamorrot (aunt) Lung mass 09/07/2011 Lung nodules 05/30/[address] Suleman Gustafson Medicare annual wellness visit, subsequent 01/27/2021 Medicare Part B: NA Last done: Multiple thyroid nodules 01/27/[address] Vigil and f/u was stable. Told no need for further f/u. 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 Takes mid morning. Substance agreement signed and Tox screen done 12/2020. 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 COLONOSCOPY FLX DX W/COLLJ SPEC WHEN PFRMD 08/19/2006 Repeat in COLONOSCOPY FLX DX W/COLLJ SPEC WHEN PFRMD 06/27/2016 Colonoscopy CRANIOPLASTY SKULL DEF/REPAIR/ BRAIN 09/14/2014 See scanned documents - status post ESOPHAGOGASTRODUODENOSCOP Y TRANSORAL DIAGNOSTIC 06/27/2016 EGD ESOPHAGOGASTRODUODENOSCOP Y TRANSORAL DIAGNOSTIC 06/30/2018 EGD IANDD ABSCESS CMPLX/MULT 07/2013 Epidural abscess- MSSA LIG/TRNSXJ FLP TUBE ABDL/VAG APPR UNI/BI Tubal ligation PAST SURGICAL HISTORY OF spinal surgery PAST SURGICAL HISTORY OF retinal detachment OD, (2 tears) PAST SURGICAL HISTORY OF 2012 back surgery STRESS TEST NUCLEAR 05/23/2021 negative ALLERGIES Fish, Horse/Equine Containing Products, Lisinopril, and Shellfish Derived MEDICATIONS nitrofurantoin monohydrate and macrocrystal (MACROBID) 100 mg capsule Take 1 capsule by mouth two times a day with meals for 7 days. phenazopyridine (PYRIDIUM) 100 mg tablet Take 1 tablet by mouth three times a day as needed. acyclovir (ZOVIRAX) 400 mg tablet Take 1 tablet b (more content not included)... Normal [facility] CNOVon 06-05-2024 CNOV Office Visit (FAMPWS ) ----- DIONY [id number]) 1955 F Date Time Provider Department 06/05/24 1:00 PM [facility] During your visit today, we recorded the following information about you: Pulse Respiration Blood pressure Weight 82/minute 16/minute 132/86 39.9 kg Rito Camp MD 06/05/2024 1:38 PM Signed Chief Complaint No chief complaint on file. HPI Diony Ramirez is a 69 year old female who presents here today for Dysuria. . Patient is still having frequency; burning and a lot of pressure. Even after patient urinates she still has the pressure. Symptoms started on Saturday. No fevers, chills, nausea, vomiting. Not sure if the back pain is in her flanks. Has not seen any hematuria. Gets a sensation like she has to go shortly after going to urinate. Past medical history, appointments, medications, allergies reviewed. Previous Medical History PAST MEDICAL HISTORY Diagnosis Date Abnormal toxicological findings 02/01/2021 Tox screen 01/27/2021 showed no benzos and pos for oxycodone which patient was not on. Patient informed of no further controlled med refills. 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 Chronic anxiety 06/17/2018 Degenerative arthritis of lumbar spine 05/06/2014 Ectatic thoracic aorta (HCC) 12/04/2022 CT done 12/2022 Elevated blood sugar 01/27/2021 Emphysema of lung (HCC) 03/18/2015 Essential hypertension, benign 02/21/2015 Ex-smoker 01/27/2021 Started around 89 and quit 2004. Smoked about 1.5 PPD GERD without esophagitis 09/12/2022 Herpes 01/27/2021 History of 2019 novel coronavirus disease (COVID-19) 01/27/202106/2020 History of small bowel obstruction HSV (herpes simplex virus) anogenital infection 02/08/2016 Living will on file at physician's office 09/27/2022 DPA: Reina Denise (aunt) Lung mass 09/07/2011 Lung nodules 05/30/[address] Suleman Gustafson Medicare annual wellness visit, subsequent 01/27/2021 Medicare Part B: NA Last done: Multiple thyroid nodules 01/27/[address] Vigil and f/u was stable. Told no need for further f/u. 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 Takes mid morning. Substance agreement signed and Tox screen done 12/2020. 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 COLONOSCOPY FLX DX W/COLLJ SPEC WHEN PFRMD 08/19/2006 Repeat in COLONOSCOPY FLX DX W/COLLJ SPEC WHEN PFRMD 06/27/2016 Colonoscopy CRANIOPLASTY SKULL DEF/REPAIR/ BRAIN 09/14/2014 See scanned documents - status post ESOPHAGOGASTRODUODENOSCOP Y TRANSORAL DIAGNOSTIC 06/27/2016 EGD ESOPHAGOGASTRODUODENOSCOP Y TRANSORAL DIAGNOSTIC 06/30/2018 EGD IANDD ABSCESS CMPLX/MULT 07/2013 Epidural abscess- MSSA LIG/TRNSXJ FLP TUBE ABDL/VAG APPR UNI/BI Tubal ligation PAST SURGICAL HISTORY OF spinal surgery PAST SURGICAL HISTORY OF 2/307 retinal detachment OD, (2 tears) PAST SURGICAL HISTORY OF 2012 back surgery STRESS TEST NUCLEAR 05/23/2021 negative Family History FAMILY HISTORY Problem Relation Age of Onset Hypertension Mother other (cerebral aneurysm) Mother Colon Polyps Father Hypertension Father COPD Father Cancer Father Bladder Cancer other (Past medical history) Father abdominal aneurysm/bladder cancer other (aortic aneurysm) Father Aneurysm Paternal Grandfather Patient Allergies ALLERGIES Allergen Reactions Fish Unknown Horse/Equine Contai* Unknown Lisinopril Cough Shellfish Derived Unknown Current Medications Current Outpatient Medications on File Prior to Visit Medication Sig acyclovir (ZOVIRAX) 400 mg tablet Take 1 tablet by mouth two times a day. penicillin V potassium 500 mg tablet Take 500 mg by mouth. omeprazole (PRILOSEC) 40 mg capsule Take 1 capsule by mouth once daily. traZODone (DESYREL) 150 mg tablet Take 1 tablet by mouth daily at bedtime. amLODIPine (NORVASC) 2.5 mg tablet Take 1 tablet by mouth once daily. hydrOXYzine HCl (ATARAX) 10 mg tablet Take 1 tablet by mouth daily at bedtime. FOLIC ACID ORAL Take by mouth as directed. cetirizine (ZYRTEC) 10 mg tablet Take 1 tablet by mouth once daily. (Patient taking differently: Take 10 mg by mouth as needed.) ZINC ORAL Take by mouth (more content not included)... Normal [facility] 06-05-2024 [facility] Telephone ([facility]) ----- DIONY RAMIREZ ([id number]) 1955 F Date Time Provider Department 06/05/24 [facility] During your visit today, we recorded the following information about you: Joana Au RN 06/05/2024 11:53 AM Signed Patient requesting Express Care to advise on her recent urine culture results, when able. Reports her urinary sx's remain the same as OV on Saturday. Please advise patient at [phone]. Thank you. Shanna Newton APRN.[facility] 06/05/2024 11:59 AM Signed Call patient let her know that she only had 10-50,000 of mixed microbiota. This is not a significant bacteria for urine culture. Patient should either follow-up with primary care or be retested for another urine. Angelina Paul LPN 06/05/2024 1:14 PM Signed Pt Is currently with her PCP for urine issue. Angelina Paul LPN Allergies As of Date: 06/05/2024 Noted Allergy Reaction FISH 06/23/2005 16 - Unknown HORSE/EQUINE CONTAINING PRODUCTS 08/30/2023 16 - Unknown LISINOPRIL 12/07/2015 3 - Cough SHELLFISH DERIVED 08/30/2023 16 - Unknown Date Reviewed: 06/03/2024 Reviewed by: Chio Celestin MA - Fully Assessed Reason for Visit: Results [95] Prescriptions as of 06/05/2024 - acyclovir (ZOVIRAX) 400 mg tablet Take 1 tablet by mouth two times a day. - omeprazole (PRILOSEC) 40 mg capsule Take 1 capsule by mouth once daily. - traZODone (DESYREL) 150 mg tablet Take 1 tablet by mouth daily at bedtime. - amLODIPine (NORVASC) 2.5 mg tablet Take 1 tablet by mouth once daily. - hydrOXYzine HCl (ATARAX) 10 mg tablet Take 1 tablet by mouth daily at bedtime. - FOLIC ACID ORAL Take by mouth as directed. - ZINC ORAL Take by mouth as directed. - SYMBICORT 160-4.5 mcg/actuation inhaler - BIOTIN ORAL Take 5,000 mcg by mouth. - ascorbic acid/collagen hydr (COLLAGEN PLUS VITAMIN C ORAL) Take 1,000 mg by mouth twice daily. - albuterol HFA (PROAIR HFA) 90 mcg/actuation inhaler Inhale 2 Puffs as instructed every 4 hours as needed for Wheezing/Shortness of Breath. - Melatonin 5 mg cap 5 mg by mouth taken 2 hours prior to bedtime - Ascorbic Acid (VITAMIN C) 1,000 mg TbER Take by mouth. - Calcium Carb-Cholecalciferol (CALCIUM 600 WITH VITAMIN D3) 600-200 mg-unit ORAL Tab Take one(1) tablet two(2) times daily. Problem List As Of Date 06/05/2024 Noted Resolved Chronic interstitial cystitis [N30.10] 04/08/2006 Adjustment disorder with depressed mood [F43.21]05/20/2006 09/21/2019 Insomnia, unspecified [G47.00] 05/20/2006 Generalized hyperhidrosis [R61] 05/20/2006 Contact dermatitis and other eczema, due to uns*02/05/2008 12/07/2015 Cervicalgia [M54.2] 07/26/2008 09/21/2019 Pain in joint, shoulder region [M25.519] 07/26/2008 03/18/2017 Manic disorder, recurrent episode, moderate (HC*08/18/2008 Contact dermatitis and other eczema due to othe*02/03/2009 12/07/2015 Disorders of bursae and tendons in shoulder reg*02/26/2009 12/07/2015 Lumbar spinal stenosis [M48.061] 08/05/2009 Climacteric [N95.1] 01/13/2010 08/07/2016 Lung mass [R91.8] 09/07/2011 09/21/2019 Postmenopausal atrophic vaginitis [N95.2] 05/01/2012 Heavy alcohol use [F10.90] 01/14/2013 Epidural abscess [G06.2] 09/16/2013 04/28/2014 Chest pain, atypical [R07.89] 12/15/2013 04/28/2014 SOB (shortness of breath) [R06.02] 12/15/2013 04/28/2014 Degenerative arthritis of lumbar spine [M47.816]05/06/2014 Arnold-Chiari malformation (HCC) [Q07.00] 09/22/2014 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] 09/22/2014 Cervical spondylosis without myelopathy [M47.81*02/21/2015 Essential hypertension, benign [I10] 02/21/2015 Emphysema of lung (HCC) [J43.9] 03/18/2015 Osteoporosis [M81.0] 09/01/2015 Overactive bladder [N32.81] 09/01/2015 HSV (herpes simplex virus) anogenital infection*02/08/2016 09/21/2019 Asthma with COPD with exacerbation (HCC) [J44.1]09/05/2016 Nocturnal muscle cramps [R25.2] 09/11/2016 09/21/2019 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] 10/10/2016 09/21/2019 Carpal tunnel syndrome, right [G56.01] 01/03/2017 09/21/2019 Chronic anxiety [F41.9] 06/17/2018 Lumbar radiculopathy [M54.16] 04/19/2020 Herpes [B00.9] 01/27/2021 Ex-smoker [Z87.891] 01/27/2021 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] 01/27/2021 History of 2019 novel coronavirus disease (COVI*01/27/2021 Multiple thyroid nodules [E04.2] 01/27/2021 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 Normal [facility] UA DIP, URINE (POC)on 2023 BILIRUBIN UA (POCT) Negative Negative [facility] CLARITY UA (POCT) Clear [facility] COLOR UA (POCT) Yellow [facility] GLUCOSE UA (POCT) Negative Negative mg/dL [facility] Hemoglobin Ql (U) Small Abnormal Negative [facility] Interpretation and review of laboratory results Abnormal [facility] KETONE UA (POCT) Negative Negative mg/dL [facility] LEUKOCYTES UA (POCT) Moderate Abnormal Negative [facility] NITRITE UA (POCT) Negative Negative [facility] PH UA (POCT) 6.0 4.5 - 8.0 [facility] Protein Ql (U) Negative Negative mg/dL [facility] SPECIFIC GRAVITY UA (POCT) <=1.005 Abnormal 1.005 - 1.030 [facility] UROBILINOGEN UA (POCT) 0.2 Normal E.U./dL [facility] Location:[facility], [address] [place] [address], [place], [address] [facility] POINT OF CARE [facility] Bacteria Ur Culton 4 Bacteria identified Cx Nom (U) ORGANISM ID: 1 10,000 -<50,000 CFU/ml Mixed microbiota No further workup. Mixed microbiota can be due to???urine???contaminatio n with skin bacteria at time of collection or presence of a long-term urinary catheter. If a new culture is needed, please consider re-education of the patient on proper midstream collection technique or straight catheterization for???urine???collection. Normal [facility] Comment on above: Performed By: #### 6 30-4 ####[facility] [id number] [address] [place] C. trachomatis+N. gonorrhoea e DNA THOMAS+probe Ql (Unsp spec)on 06-03-2024 C. trachomatis rRNA THOMAS+probe Ql (Unsp spec) Negative Normal Negative for Chlamydia trachomatis by amplificaton [facility] Comment on above: Order Comment: Speci men Type: BLOOD SPECIMEN Ordering Facility: [facility] Address: [address] [place] [address] Performed By: #### L [id number], HCOAG #### [facility] CLIA [id number] [address] [place] [address] [place] N. gonorrhoeae rRNA THOMAS+probe Ql (Unsp spec) Negative Normal Negative for Neisseria gonorrhoeae by amplification [facility] Comment on above: Order Comment: Speci men Type: BLOOD SPECIMEN Ordering Facility: [facility] Address: [address] [place] [address] Performed By: #### L [id number], HCOAG #### [facility] CLIA [id number] [address] [place] [address] [place] CNOVon 06-03-2024 CNOV Office Visit (UCWSTR ) ----- DIONY RAMIREZ ([id number]) 1955 F Date Time Provider Department 06/03/24 9:45 AM MARY ANN SHERMAN UCWSTR During your visit today, we recorded the following information about you: Temperature Pulse Respiration Blood pressure 98.5 degrees 85/minute 20/minute 142/88 Weight 40.6 kg Mary Ann Sherman APRN.CNP 06/03/2024 11:08 AM Signed This note was created using [employer]. Subjective Diony Ramirez is a 69 year old female. Relevant PMH and allergies: Pt is a 69 year old female who presents today with vaginal burning/irritation, frequency and pressure x3 days. Pts states she started to develop some pain when urinating and frequency. She tried taking AZO two days ago to help with her symptoms which provided slight relief. Pt states she has not noticed any blood in her urine or had any back or side pain. Pt denies changes in detergents, soap and recent antibiotics. Pt states she is currently sexually active and does not use condoms with her partner. Pt denies changes in discharge, odor, redness and rash. Pt states she has had UTIs in the past. Pt no longer gets her periods. Denies fever, chills, nausea, vomiting, diarrhea, cough, chest pain and SOB. The history is provided by the patient. No valve inserter was used. UTI This is a new problem. The current episode started more than 2 days ago. The problem occurs every urination. The problem has been gradually improving. The quality of the pain is described as burning. The pain is mild. There has been no fever. She is Sexually active. There is No history of pyelonephritis. Associated symptoms include frequency and urgency. Pertinent negatives include no chills, no sweats, no nausea, no vomiting, no discharge, no hematuria, no hesitancy and no flank pain. Treatments tried: AZO. Her past medical history is significant for recurrent UTIs. Her past medical history does not include kidney stones or catheterization. PAST MEDICAL HISTORY Diagnosis Date Abnormal toxicological findings 02/01/2021 Tox screen 01/27/2021 showed no benzos and pos for oxycodone which patient was not on. Patient informed of no further controlled med refills. 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 Chronic anxiety 06/17/2018 Degenerative arthritis of lumbar spine 05/06/2014 Ectatic thoracic aorta (HCC) 12/04/2022 CT done 12/2022 Elevated blood sugar 01/27/2021 Emphysema of lung (HCC) 03/18/2015 Essential hypertension, benign 02/21/2015 Ex-smoker 01/27/2021 Started around 89 and quit 2004. Smoked about 1.5 PPD GERD without esophagitis 09/12/2022 Herpes 01/27/2021 History of 2019 novel coronavirus disease (COVID-19) 01/27/202106/2020 History of small bowel obstruction HSV (herpes simplex virus) anogenital infection 02/08/2016 Living will on file at physician's office 09/27/2022 DPA: Reina Denise (aunt) Lung mass 09/07/2011 Lung nodules 05/30/[address] Suleman Gustafson Medicare annual wellness visit, subsequent 01/27/2021 Medicare Part B: NA Last done: Multiple thyroid nodules 01/27/[address] Vigil and f/u was stable. Told no need for further f/u. 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 Takes mid morning. Substance agreement signed and Tox screen done 12/2020. 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 COLONOSCOPY FLX DX W/COLLJ SPEC WHEN PFRMD 08/19/2006 Repeat in COLONOSCOPY FLX DX W/COLLJ SPEC WHEN PFRMD 06/27/2016 Colonoscopy CRANIOPLASTY SKULL DEF/REPAIR/ BRAIN 09/14/2014 See scanned documents - status post ESOPHAGOGASTRODUODENOSCOP Y TRANSORAL DIAGNOSTIC 06/27/2016 EGD ESOPHAGOGASTRODUODENOSCOP Y TRANSORAL DIAGNOSTIC 06/30/2018 EGD IANDD ABSCESS CMPLX/MULT 07/2013 Epidural abscess- MSSA LIG/TRNSXJ FLP TUBE ABDL/VAG APPR UNI/BI Tubal ligation PAST SURGICAL HISTORY OF spinal surgery PAST SURGICAL HISTORY OF retinal detachment OD, (2 tears) PAST SURGICAL HISTORY OF 2012 back surgery STRESS TEST NUCLEAR 05/23/2021 negative ALLERGIES Fish, Horse/Equine Containing Products, Lisinopril, and Shellfish Derived MEDICATIONS acyclovir (ZOVIRAX) 400 mg tablet Take 1 tablet by mouth two times a day. omeprazole (PRILOSEC) (more content not included)... Normal [facility] TRICHOMONAS VAGINALIS NAATon 06-03-2024 T. vaginalis DNA THOMAS+probe Ql (Unsp spec) Negative Normal Negative for Trichomonas vaginalis by amplification [facility] Comment on above: Order Comment: Speci men Type: URINE SPECIMEN Ordering Facility: [facility] Address: [address] [place] [address] Performed By: #### T RVAMP #### [facility] CLIA [id number] [address] [place] [address] [place] UA DIP, URINE (POC)on 2023 BILIRUBIN UA (POCT) Negative Negative [facility] CLARITY UA (POCT) Clear [facility] COLOR UA (POCT) Yellow [facility] GLUCOSE UA (POCT) Negative Negative mg/dL [facility] Hemoglobin Ql (U) Negative Negative [facility] KETONE UA (POCT) Negative Negative mg/dL [facility] LEUKOCYTES UA (POCT) Negative Negative [facility] NITRITE UA (POCT) Negative Negative [facility] PH UA (POCT) 7.0 4.5 - 8.0 [facility] Protein Ql (U) Negative Negative mg/dL [facility] SPECIFIC GRAVITY UA (POCT) 1.010 1.005 - 1.030 [facility] UROBILINOGEN UA (POCT) 0.2 Normal E.U./dL [facility] Location:[facility], [address] [place] [address], [place], [address] SEARS [facility]IN[facility] POINT OF CARE [facility] CNPNon 04-24-2024 CNPN Telephone (FAMPWS) ----- DIONY RAMIREZ ([id number]) 1955 F Date Time Provider Department 04/24/24 ALEX BROWN [facility] During your visit today, we recorded the following information about you: Allergies As of Date: 04/24/2024 Noted Allergy Reaction FISH 06/23/2005 16 - Unknown HORSE/EQUINE CONTAINING PRODUCTS 08/30/2023 16 - Unknown LISINOPRIL 12/07/2015 3 - Cough SHELLFISH DERIVED 08/30/2023 16 - Unknown Date Reviewed: 04/14/2024 Reviewed by: Mila Kidd MA - Fully Assessed Reason for Visit: Results [95] Primary Visit Diagnosis:Acute pain of left shoulder [M25.512] Order(s):MRI SHOULDER WO IVCON LEFT [[id number]] Order #: [id number] FUTURE Prescriptions as of 04/24/2024 - penicillin V potassium 500 mg tablet Take 500 mg by mouth. - omeprazole (PRILOSEC) 40 mg capsule Take 1 capsule by mouth once daily. - traZODone (DESYREL) 150 mg tablet Take 1 tablet by mouth daily at bedtime. - amLODIPine (NORVASC) 2.5 mg tablet Take 1 tablet by mouth once daily. - hydrOXYzine HCl (ATARAX) 10 mg tablet Take 1 tablet by mouth daily at bedtime. - FOLIC ACID ORAL Take by mouth as directed. - cetirizine (ZYRTEC) 10 mg tablet Take 1 tablet by mouth once daily. - acyclovir (ZOVIRAX) 400 mg tablet Take 1 tablet by mouth twice daily. - ZINC ORAL Take by mouth as directed. - SYMBICORT 160-4.5 mcg/actuation inhaler - BIOTIN ORAL Take 5,000 mcg by mouth. - ascorbic acid/collagen hydr (COLLAGEN PLUS VITAMIN C ORAL) Take 1,000 mg by mouth twice daily. - albuterol HFA (PROAIR HFA) 90 mcg/actuation inhaler Inhale 2 Puffs as instructed every 4 hours as needed for Wheezing/Shortness of Breath. - Melatonin 5 mg cap 5 mg by mouth taken 2 hours prior to bedtime - Ascorbic Acid (VITAMIN C) 1,000 mg TbER Take by mouth. - Calcium Carb-Cholecalciferol (CALCIUM 600 WITH VITAMIN D3) 600-200 mg-unit ORAL Tab Take one(1) tablet two(2) times daily. Problem List As Of Date 04/24/2024 Noted Resolved Chronic interstitial cystitis [N30.10] 04/08/2006 Adjustment disorder with depressed mood [F43.21]05/20/2006 09/21/2019 Insomnia, unspecified [G47.00] 05/20/2006 Generalized hyperhidrosis [R61] 05/20/2006 Contact dermatitis and other eczema, due to uns*02/05/2008 12/07/2015 Cervicalgia [M54.2] 07/26/2008 09/21/2019 Pain in joint, shoulder region [M25.519] 07/26/2008 03/18/2017 Manic disorder, recurrent episode, moderate (HC*08/18/2008 Contact dermatitis and other eczema due to othe*02/03/2009 12/07/2015 Disorders of bursae and tendons in shoulder reg*02/26/2009 12/07/2015 Lumbar spinal stenosis [M48.061] 08/05/2009 Climacteric [N95.1] 01/13/2010 08/07/2016 Lung mass [R91.8] 09/07/2011 09/21/2019 Postmenopausal atrophic vaginitis [N95.2] 05/01/2012 Heavy alcohol use [F10.90] 01/14/2013 Epidural abscess [G06.2] 09/16/2013 04/28/2014 Chest pain, atypical [R07.89] 12/15/2013 04/28/2014 SOB (shortness of breath) [R06.02] 12/15/2013 04/28/2014 Degenerative arthritis of lumbar spine [M47.816]05/06/2014 Arnold-Chiari malformation (HCC) [Q07.00] 09/22/2014 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] 09/22/2014 Cervical spondylosis without myelopathy [M47.81*02/21/2015 Essential hypertension, benign [I10] 02/21/2015 Emphysema of lung (HCC) [J43.9] 03/18/2015 Osteoporosis [M81.0] 09/01/2015 Overactive bladder [N32.81] 09/01/2015 HSV (herpes simplex virus) anogenital infection*02/08/2016 09/21/2019 Asthma with COPD with exacerbation (HCC) [J44.1*09/05/2016 Nocturnal muscle cramps [R25.2] 09/11/2016 09/21/2019 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] 10/10/2016 09/21/2019 Carpal tunnel syndrome, right [G56.01] 01/03/2017 09/21/2019 Chronic anxiety [F41.9] 06/17/2018 Lumbar radiculopathy [M54.16] 04/19/2020 Herpes [B00.9] 01/27/2021 Ex-smoker [Z87.891] 01/27/2021 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] 01/27/2021 History of 2019 novel coronavirus disease (COVI*01/27/2021 Multiple thyroid nodules [E04.2] 01/27/2021 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] 01/27/2021 Medicare annual wellness visit, subsequent [Z00*01/27/2021 Medication management [Z79.899] 01/27/2021 Elevated blood sugar [R73.9] 01/27/2021 Abnormal toxicological findings [R89.2] 02/01/2021 Lung nodules [R91.8] 05/30/2021 GERD without esophagitis [K21.9] 09/12/2022 Living will on file at physician's office [Z78.*09/27/2022 Advance directive discussed with patient [Z71.8*09/27/2022 Ectatic thoracic aorta (HCC) [I77.810] 12/04/2022 Chronic bilateral low back pain with sciatica [*07/15/2023 Encounter Status:Closed by ALEX BROWN on 04/24/24 Normal [facility] MR Shoulder - left WO contra ston 04-24-2024 IMPRESSION: Rotator cuff tendinosis without tear. Long head of biceps tendon sheath effusion that could potentially relate to tenosynovitis. Community Health Educator: [facility] Transcribe Date/Time: Apr 24 2024 10:49A Dictated by : CATHLEEN KYLE MD This examination was interpreted and the report reviewed and electronically signed by: CATHLEEN KYLE MD on Apr 24 2024 10:58AM [facility] DIVISION OF RADIOLOGY * * *Final Report* * * DATE OF EXAM: Apr 24 2024 10:00AM [facility] 0239 - MRI SHOULDER WO IVCON LT / PROCEDURE REASON: Acute pain of left shoulder * * * * Physician Interpretation * * * * EXAMINATION: MRI SHOULDER WO IVCON LT HISTORY: Shoulder pain. TECHNIQUE: Routine non-contrast MRI of the shoulder. COMPARISON: Left shoulder radiographs dated 03/18/2024. RESULT: TENDONS: The patient is imaged in extreme external rotation. Rotator cuff tendons: -Supraspinatus: Intact with mild tendinosis -Infraspinatus: Intact with mild tendinosis -Subscapularis: Intact with mild tendinosis -Teres Minor: Intact tendon Biceps (Long head) Tendon: Intact , with normal course. Small tendon sheath effusion. MUSCLES: Rotator cuff muscles: -Supraspinatus: Preserved bulk and no fatty changes. -Infraspinatus: Preserved bulk and no fatty changes. -Subscapularis: Preserved bulk and no fatty changes. -Teres Minor: Preserved bulk and no fatty changes. Other muscles: Preserved signal and bulk in the deltoid. JOINTS: Glenohumeral Joint: -Labrum: Glenoid labrum appears to be intact. -Cartilage: Low-grade chondral thinning. -Joint Fluid: No effusion . No synovitis. Acromioclavicular Joint: Mild to moderate hypertrophic degenerative changes BONES AND MARROW: No evidence of fracture or suspicious bone marrow replacing process OTHER: Subdeltoid/Subacromial Bursa: Mild bursal distention Localizer images: No additional findings. DIVISION OF RADIOLOGY Provider, [facility] - 04/24/2024 * * *Final Report* * * DATE OF EXAM: Apr 24 2024 10:00AM [facility] 0239 - MRI SHOULDER WO IVCON LT / PROCEDURE REASON: Acute pain of left shoulder * * * * Physician Interpretation * * * * EXAMINATION: MRI SHOULDER WO IVCON LT HISTORY: Shoulder pain. TECHNIQUE: Routine non-contrast MRI of the shoulder. COMPARISON: Left shoulder radiographs dated 03/18/2024. RESULT: TENDONS: The patient is imaged in extreme external rotation. Rotator cuff tendons: -Supraspinatus: Intact with mild tendinosis -Infraspinatus: Intact with mild tendinosis -Subscapularis: Intact with mild tendinosis -Teres Minor: Intact tendon Biceps (Long head) Tendon: Intact , with normal course. Small tendon sheath effusion. MUSCLES: Rotator cuff muscles: -Supraspinatus: Preserved bulk and no fatty changes. -Infraspinatus: Preserved bulk and no fatty changes. -Subscapularis: Preserved bulk and no fatty changes. -Teres Minor: Preserved bulk and no fatty changes. Other muscles: Preserved signal and bulk in the deltoid. JOINTS: Glenohumeral Joint: -Labrum: Glenoid labrum appears to be intact. -Cartilage: Low-grade chondral thinning. -Joint Fluid: No effusion . No synovitis. Acromioclavicular Joint: Mild to moderate hypertrophic degenerative changes BONES AND MARROW: No evidence of fracture or suspicious bone marrow replacing process OTHER: Subdeltoid/Subacromial Bursa: Mild bursal distention Localizer images: No additional findings. IMPRESSION IMPRESSION: Rotator cuff tendinosis without tear. Long head of biceps tendon sheath effusion that could potentially relate to tenosynovitis. Community Health Educator: LEONARDO Transcribe Date/Time: Apr 24 2024 10:49A Dictated by : CATHLEEN KYLE MD This examination was interpreted and the report reviewed and electronically signed by: CATHLEEN KYLE MD on Apr 24 2024 10:58AM EST [facility] Radiology Study observation (narrative) [facility] MR Shoulder - left WO contra stOrdered By: [facility] Provider on 04-24-2024 [facility] MRI SHOULDER WO IVCON LTon 0 04-24-2024 MRI SHOULDER WO IVCON LT * * *Final Report* * * DATE OF EXAM: Apr 24 2024 10:00AM [facility] 0239 - MRI SHOULDER WO IVCON LT / PROCEDURE REASON: Acute pain of left shoulder * * * * Physician Interpretation * * * * EXAMINATION: MRI SHOULDER WO IVCON LT HISTORY: Shoulder pain. TECHNIQUE: Routine non-contrast MRI of the shoulder. COMPARISON: Left shoulder radiographs dated 03/18/2024. RESULT: TENDONS: The patient is imaged in extreme external rotation. Rotator cuff tendons: -Supraspinatus: Intact with mild tendinosis -Infraspinatus: Intact with mild tendinosis -Subscapularis: Intact with mild tendinosis -Teres Minor: Intact tendon Biceps (Long head) Tendon: Intact , with normal course. Small tendon sheath effusion. MUSCLES: Rotator cuff muscles: -Supraspinatus: Preserved bulk and no fatty changes. -Infraspinatus: Preserved bulk and no fatty changes. -Subscapularis: Preserved bulk and no fatty changes. -Teres Minor: Preserved bulk and no fatty changes. Other muscles: Preserved signal and bulk in the deltoid. JOINTS: Glenohumeral Joint: -Labrum: Glenoid labrum appears to be intact. -Cartilage: Low-grade chondral thinning. -Joint Fluid: No effusion . No synovitis. Acromioclavicular Joint: Mild to moderate hypertrophic degenerative changes BONES AND MARROW: No evidence of fracture or suspicious bone marrow replacing process OTHER: Subdeltoid/Subacromial Bursa: Mild bursal distention Localizer images: No additional findings. IMPRESSION: Rotator cuff tendinosis without tear. Long head of biceps tendon sheath effusion that could potentially relate to tenosynovitis. Community Health Educator: LEONARDO Transcribe Date/Time: Apr 24 2024 10:49A Dictated by : CATHLEEN KYLE MD This examination was interpreted and the report reviewed and electronically signed by: CATHLEEN KYLE MD on Apr 24 2024 10:58AM EST [id number] Normal [facility] CNPKinsey 04-20-2024 CNPN Telephone (FAMPWS) ----- DIONY RAMIREZ ([id number]) 1955 F Date Time Provider Department 04/20/24 RITO CAMP During your visit today, we recorded the following information about you: Good Silva RN 04/20/2024 12:30 PM Signed Patient reports she fell on her right side on 04-14-24, and was seen in the office for possible broken ribs. Xray was negative. Patient has been using ice, taking tylenol, and ibuprofen and states these do not seem to be helping the pain. Reports if she moves the wrong way the pain goes to 8/10. Reports she also has osteoarthritis. Advised patient she will probably be sore for a few weeks, and she may have sore muscles as well. Advised patient to try to avoid the movement that creates the pain, and give it more time to heal. If no improvement after 2 weeks, may call back to pcp office and nurse can schedule a f/u appt. Patient agreeable, and agreeable to call back if condition worsens. Allergies As of Date: 04/20/2024 Noted Allergy Reaction FISH 06/23/2005 16 - Unknown HORSE/EQUINE CONTAINING PRODUCTS 08/30/2023 16 - Unknown LISINOPRIL 12/07/2015 3 - Cough SHELLFISH DERIVED 08/30/2023 16 - Unknown Date Reviewed: 04/14/2024 Reviewed by: Mila Kidd MA - Fully Assessed Reason for Visit: Patient Update [1234] Prescriptions as of 04/20/2024 - penicillin V potassium 500 mg tablet Take 500 mg by mouth. - omeprazole (PRILOSEC) 40 mg capsule Take 1 capsule by mouth once daily. - traZODone (DESYREL) 150 mg tablet Take 1 tablet by mouth daily at bedtime. - amLODIPine (NORVASC) 2.5 mg tablet Take 1 tablet by mouth once daily. - hydrOXYzine HCl (ATARAX) 10 mg tablet Take 1 tablet by mouth daily at bedtime. - FOLIC ACID ORAL Take by mouth as directed. - cetirizine (ZYRTEC) 10 mg tablet Take 1 tablet by mouth once daily. - acyclovir (ZOVIRAX) 400 mg tablet Take 1 tablet by mouth twice daily. - ZINC ORAL Take by mouth as directed. - SYMBICORT 160-4.5 mcg/actuation inhaler - BIOTIN ORAL Take 5,000 mcg by mouth. - ascorbic acid/collagen hydr (COLLAGEN PLUS VITAMIN C ORAL) Take 1,000 mg by mouth twice daily. - albuterol HFA (PROAIR HFA) 90 mcg/actuation inhaler Inhale 2 Puffs as instructed every 4 hours as needed for Wheezing/Shortness of Breath. - Melatonin 5 mg cap 5 mg by mouth taken 2 hours prior to bedtime - Ascorbic Acid (VITAMIN C) 1,000 mg TbER Take by mouth. - Calcium Carb-Cholecalciferol (CALCIUM 600 WITH VITAMIN D3) 600-200 mg-unit ORAL Tab Take one(1) tablet two(2) times daily. Problem List As Of Date 04/20/2024 Noted Resolved Chronic interstitial cystitis [N30.10] 04/08/2006 Adjustment disorder with depressed mood [F43.21]05/20/2006 09/21/2019 Insomnia, unspecified [G47.00] 05/20/2006 Generalized hyperhidrosis [R61] 05/20/2006 Contact dermatitis and other eczema, due to uns*02/05/2008 12/07/2015 Cervicalgia [M54.2] 07/26/2008 09/21/2019 Pain in joint, shoulder region [M25.519] 07/26/2008 03/18/2017 Manic disorder, recurrent episode, moderate (HC*08/18/2008 Contact dermatitis and other eczema due to othe*02/03/2009 12/07/2015 Disorders of bursae and tendons in shoulder reg*02/26/2009 12/07/2015 Lumbar spinal stenosis [M48.061] 08/05/2009 Climacteric [N95.1] 01/13/2010 08/07/2016 Lung mass [R91.8] 09/07/2011 09/21/2019 Postmenopausal atrophic vaginitis [N95.2] 05/01/2012 Heavy alcohol use [F10.90] 01/14/2013 Epidural abscess [G06.2] 09/16/2013 04/28/2014 Chest pain, atypical [R07.89] 12/15/2013 04/28/2014 SOB (shortness of breath) [R06.02] 12/15/2013 04/28/2014 Degenerative arthritis of lumbar spine [M47.816]05/06/2014 Arnold-Chiari malformation (HCC) [Q07.00] 09/22/2014 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] 09/22/2014 Cervical spondylosis without myelopathy [M47.81*02/21/2015 Essential hypertension, benign [I10] 02/21/2015 Emphysema of lung (HCC) [J43.9] 03/18/2015 Osteoporosis [M81.0] 09/01/2015 Overactive bladder [N32.81] 09/01/2015 HSV (herpes simplex virus) anogenital infection*02/08/2016 09/21/2019 Asthma with COPD with exacerbation (HCC) [J44.1*09/05/2016 Nocturnal muscle cramps [R25.2] 09/11/2016 09/21/2019 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] 10/10/2016 09/21/2019 Carpal tunnel syndrome, right [G56.01] 01/03/2017 09/21/2019 Chronic anxiety [F41.9] 06/17/2018 Lumbar radiculopathy [M54.16] 04/19/2020 Herpes [B00.9] 01/27/2021 Ex-smoker [Z87.891] 01/27/2021 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] 01/27/2021 History of 2019 novel coronavirus disease (COVI*01/27/2021 Multiple thyroid nodules [E04.2] 01/27/2021 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] 01/27/2021 Medicare annual wellness visit, subsequent [Z00*01/27/2021 Medication management [Z79.899] 01/27/2021 Elevated blood sugar [R73.9] 01/27/2021 Abnormal toxicological findings [R89.2] 02/01/2021 Lung nodules [R91.8] 05/30/2021 GERD without esophagitis [K21.9] (more content not included)... Normal [facility] CNOVon 04-14-2024 CNOV Office Visit (FAMPWS ) ----- DIONY RAMIREZ ([id number]) 1955 F Date Time Provider Department 04/14/24 10:00 AM ALEX BROWN During your visit today, we recorded the following information about you: Pulse Respiration Blood pressure Weight 98/minute 14/minute 143/73 40.4 kg Alex Brown APRN.SENIOR INFORMATICA DEVELOPER 04/14/2024 10:03 AM Signed Chief Complaint Patient presents with: Fall: Fell 5 days ago- right rib pain HPI Diony Ramirez is a 69 year old female who presents here today for Above Complaints.. Patient presents for fall. Patient reports 5 days ago she fell down the steps at her friends house and landed on her right side. Patient reports pain to right ribs. Patient reports she was talking and was not paying attention to the step down from the kitchen. Past medical history, appointments, medications, allergies reviewed. Previous Medical History PAST MEDICAL HISTORY 02/01/2021: Abnormal toxicological findings Comment: Tox screen 01/27/2021 showed no benzos and pos for oxycodone which patient was not on. Patient informed of no further controlled med refills. 01/202105/20/2006: Adjustment disorder with depressed mood 09/27/2022: Advance directive discussed with patient Comment: Discussed 09/2022: Up to date 09/14/2014: Arnold-Chiari malformation (HCC) Comment: See Scanned documents 01/27/2021: Blind right eye Comment: On;y 5% vision remains due to retinal detachment. 06/17/2018: Chronic anxiety 05/06/2014: Degenerative arthritis of lumbar spine 12/04/2022: Ectatic thoracic aorta ([facility]) Comment: CT done 12/202201/27/2021: Elevated blood sugar 03/18/2015: Emphysema of lung (HCC) 02/21/2015: Essential hypertension, benign 01/27/2021: Ex-smoker Comment: Started around 89 and quit 2004. Smoked about 1.5 PPD 09/12/2022: GERD without esophagitis 01/27/2021: Herpes 01/27/2021: History of 2019 novel coronavirus disease (COVID-19) Comment: 06/2020 No date: History of small bowel obstruction 02/08/2016: HSV (herpes simplex virus) anogenital infection 09/27/2022: Living will on file at physician's office Comment: DPA: Reina Denise (aunt) 09/07/2011: Lung mass 05/30/2021: Lung nodules Comment: Seeing Dr. Suleman Gustafson 01/27/2021: Medicare annual wellness visit, subsequent Comment: Medicare Part B: NA Last done: 01/27/2021: Multiple thyroid nodules Comment: Was seen by Dr. Vigil and f/u was stable. Told no need for further f/u. 09/01/2015: Osteoporosis Comment: Fosamax restarted 01/201909/01/2015: Overactive bladder 01/27/2021: Post-COVID syndrome Comment: Chest tightness relieved by daily ativan. 01/27/2021: Post-COVID syndrome Comment: Chest tightness relieved by daily ativan. Takes mid morning. Substance agreement signed and Tox screen done 12/2020. tox screen abnormal and patient informed of no future controlled med scripts No date: Retinal detachment Comment: in Right Eye 09/14/2014: Thoracic myelopathy Comment: Secondard to epidural abscess Previous Surgical History PAST SURGICAL HISTORY 05/23/2021: 2D ECHO (EXEP) Comment: EF=65%, 1+TI. 08/19/2006: COLONOSCOPY FLX DX W/COLLJ SPEC WHEN PFRMD Comment: Repeat in -201506/27/2016: COLONOSCOPY FLX DX W/COLLJ SPEC WHEN PFRMD Comment: Colonoscopy 09/14/2014: CRANIOPLASTY SKULL DEF/REPAIR/ BRAIN Comment: See scanned documents - status post 06/27/2016: ESOPHAGOGASTRODUODENOSCOP Y TRANSORAL DIAGNOSTIC Comment: EGD 06/30/2018: ESOPHAGOGASTRODUODENOSCOP Y TRANSORAL DIAGNOSTIC Comment: EGD 07/2013: IANDD ABSCESS CMPLX/MULT Comment: Epidural abscess- MSSA No date: LIG/TRNSXJ FLP TUBE ABDL/VAG APPR UNI/BI Comment: Tubal ligation No date: PAST SURGICAL HISTORY OF Comment: spinal surgery : PAST SURGICAL HISTORY OF Comment: retinal detachment OD, (2 tears) 2012: PAST SURGICAL HISTORY OF Comment: back surgery 05/23/2021: STRESS TEST NUCLEAR Comment: negative Family History FAMILY HISTORY Problem Relation Age of Onset Hypertension Mother other (cerebral aneurysm) Mother Colon Polyps Father Hypertension Father COPD Father Cancer Father Bladder Cancer other (Past medical history) Father abdominal aneurysm/bladder cancer other (aortic aneurysm) Father Aneurysm Paternal Grandfather Patient Allergies ALLERGIES Allergen Reactions Fish Unknown Horse/Equine Contai* Unknown Lisinopril Cough Shellfish Derived Unknown Current Medications Current Outpatient Medications on File Prior to Visit Medication Sig penicillin V potassium 500 mg tablet Take 500 mg by mouth. omeprazole (PRILOSEC) 40 mg capsule Take 1 capsule by mouth once daily. traZODone (DESYREL) 150 mg tablet Take 1 tablet by mouth daily at bedtime. benzonatate (TESSALON PERLES) 100 mg capsule Take 2 capsules by mouth three times a day as needed. baclofen 10 mg tablet Take 1 tablet by mouth three times a day (more content not included)... [facility] DIONY RAMIREZ ([id number]) 1955 F Date Time Provider Department 04/14/24 [facility] During your visit today, we recorded the following information about you: Alex Brown APRN.[facility] 04/14/2024 11:24 AM Signed Please let patient know their xray is negative for fracture. Mila Kidd MA 04/14/2024 11:37 AM Signed Pt notified and verbalized understanding AMIRA Esquivel Danielle, APRN.[facility] 04/27/2024 1:24 PM Signed Please let patient know her MRI does not show any rotator cuff injury but does show tendinosis. I have ordered pT. Aury Newton MA 04/27/2024 1:40 PM Signed Left message for patient to contact office. AMIRA Núñez Laurie Lynn, LPN 04/29/2024 11:17 AM Signed Spoke with pt and information listed below given. Pt verbalizes understanding. Fannie Centeno LPN Allergies As of Date: 04/14/2024 Noted Allergy Reaction FISH 06/23/2005 16 - Unknown HORSE/EQUINE CONTAINING PRODUCTS 08/30/2023 16 - Unknown LISINOPRIL 12/07/2015 3 - Cough SHELLFISH DERIVED 08/30/2023 16 - Unknown Date Reviewed: 04/14/2024 Reviewed by: Mila Kidd MA - Fully Assessed Reason for Visit: Results [95] Primary Visit Diagnosis:Tendinopathy of rotator cuff, unspecified laterality [M67.919] Order(s):CONSULT TO PHYSICAL THERAPY [9032] Order #: [id number]: 1 FUTURE Prescriptions as of 04/29/2024 - acyclovir (ZOVIRAX) 400 mg tablet Take 1 tablet by mouth two times a day. - penicillin V potassium 500 mg tablet Take 500 mg by mouth. - omeprazole (PRILOSEC) 40 mg capsule Take 1 capsule by mouth once daily. - traZODone (DESYREL) 150 mg tablet Take 1 tablet by mouth daily at bedtime. - amLODIPine (NORVASC) 2.5 mg tablet Take 1 tablet by mouth once daily. - hydrOXYzine HCl (ATARAX) 10 mg tablet Take 1 tablet by mouth daily at bedtime. - FOLIC ACID ORAL Take by mouth as directed. - cetirizine (ZYRTEC) 10 mg tablet Take 1 tablet by mouth once daily. - ZINC ORAL Take by mouth as directed. - SYMBICORT 160-4.5 mcg/actuation inhaler - BIOTIN ORAL Take 5,000 mcg by mouth. - ascorbic acid/collagen hydr (COLLAGEN PLUS VITAMIN C ORAL) Take 1,000 mg by mouth twice daily. - albuterol HFA (PROAIR HFA) 90 mcg/actuation inhaler Inhale 2 Puffs as instructed every 4 hours as needed for Wheezing/Shortness of Breath. - Melatonin 5 mg cap 5 mg by mouth taken 2 hours prior to bedtime - Ascorbic Acid (VITAMIN C) 1,000 mg TbER Take by mouth. - Calcium Carb-Cholecalciferol (CALCIUM 600 WITH VITAMIN D3) 600-200 mg-unit ORAL Tab Take one(1) tablet two(2) times daily. Problem List As Of Date 04/14/2024 Noted Resolved Chronic interstitial cystitis [N30.10] 04/08/2006 Adjustment disorder with depressed mood [F43.21]05/20/2006 09/21/2019 Insomnia, unspecified [G47.00] 05/20/2006 Generalized hyperhidrosis [R61] 05/20/2006 Contact dermatitis and other eczema, due to uns*02/05/2008 12/07/2015 Cervicalgia [M54.2] 07/26/2008 09/21/2019 Pain in joint, shoulder region [M25.519] 07/26/2008 03/18/2017 Manic disorder, recurrent episode, moderate (HC*08/18/2008 Contact dermatitis and other eczema due to othe*02/03/2009 12/07/2015 Disorders of bursae and tendons in shoulder reg*02/26/2009 12/07/2015 Lumbar spinal stenosis [M48.061] 08/05/2009 Climacteric [N95.1] 01/13/2010 08/07/2016 Lung mass [R91.8] 09/07/2011 09/21/2019 Postmenopausal atrophic vaginitis [N95.2] 05/01/2012 Heavy alcohol use [F10.90] 01/14/2013 Epidural abscess [G06.2] 09/16/2013 04/28/2014 Chest pain, atypical [R07.89] 12/15/2013 04/28/2014 SOB (shortness of breath) [R06.02] 12/15/2013 04/28/2014 Degenerative arthritis of lumbar spine [M47.816]05/06/2014 Arnold-Chiari malformation (HCC) [Q07.00] 09/22/2014 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] 09/22/2014 Cervical spondylosis without myelopathy [M47.81*02/21/2015 Essential hypertension, benign [I10] 02/21/2015 Emphysema of lung (HCC) [J43.9] 03/18/2015 Osteoporosis [M81.0] 09/01/2015 Overactive bladder [N32.81] 09/01/2015 HSV (herpes simplex virus) anogenital infection*02/08/2016 09/21/2019 Asthma with COPD with exacerbation (HCC) [J44.1*09/05/2016 Nocturnal muscle cramps [R25.2] 09/11/2016 09/21/2019 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] 10/10/2016 09/21/2019 Carpal tunnel syndrome, right [G56.01] 01/03/2017 09/21/2019 Chronic anxiety [F41.9] 06/17/2018 Lumbar radiculopathy [M54.16] 04/19/2020 Herpes [B00.9] 01/27/2021 Ex-smoker [Z87.891] 01/27/2021 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] 01/27/2021 History of 2019 novel coronavirus disease (COVI*01/27/2021 Multiple thyroid nodules [E04.2] 01/27/2021 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] 01/27/2021 Medicare annual wellness visit, subsequent [Z00*01/27/2021 Medication management [Z79.899] 01/27/2021 Elevated blood sugar [R73.9] 01/27/2021 Abnormal toxicological findings [R89.2] 02/01 (more content not included)... Normal [facility] XR CHEST 2V FRONTAL/LATon XR CHEST 2V FRONTAL/LAT * * *Final Report* * * DATE OF EXAM: Apr 14 2024 10:44AM WOX 5291 - XR CHEST 2V FRONTAL/LAT / PROCEDURE REASON: multiple diagnoses * * * * Physician Interpretation * * * * EXAMINATION: CHEST RADIOGRAPH (2 VIEW FRONTAL and LATERAL) CLINICAL HISTORY: Fall (on) (from) other stairs and steps, initial encounter Rib pain on right side MQ: XC2_6 EXAM DATE/TIME: 04/14/2024 10:44 AM COMPARISON: Chest x-ray on 12/23/2023 RESULT: Lines, tubes, and devices: None. Lungs and pleura: Slight prominence of the pulmonary markings in the left lower lung, unchanged. No consolidation. No lung mass. No pleural effusion. No pneumothorax. Cardiomediastinal silhouette: Stable cardiomediastinal silhouette. Bones and soft tissues: The spine shows similar right-sided curvature and degenerative changes. IMPRESSION: Overall findings unchanged. Community Health Educator: LEONARDO Transcribe Date/Time: Apr 14 2024 10:45A Dictated by : LAURIE KAYE MD This examination was interpreted and the report reviewed and electronically signed by: LAURIE KAYE MD on Apr 14 2024 10:46AM EST [id number] Normal [facility] XR Chest PA and Lateralon IMPRESSION: Overall findings unchanged. Community Health Educator: LEONARDO Transcribe Date/Time: Apr 14 2024 10:45A Dictated by : LAURIE KAYE MD This examination was interpreted and the report reviewed and electronically signed by: LAURIE KAYE MD on Apr 14 2024 10:46AM EST DIVISION OF RADIOLOGY * * *Final Report* * * DATE OF EXAM: Apr 14 2024 10:44AM WOX 5291 - XR CHEST 2V FRONTAL/LAT / PROCEDURE REASON: multiple diagnoses * * * * Physician Interpretation * * * * EXAMINATION: CHEST RADIOGRAPH (2 VIEW FRONTAL & LATERAL) CLINICAL HISTORY: Fall (on) (from) other stairs and steps, initial encounter Rib pain on right side MQ: XC2_6 EXAM DATE/TIME: 04/14/2024 10:44 AM COMPARISON: Chest x-ray on 12/23/2023 RESULT: Lines, tubes, and devices: None. Lungs and pleura: Slight prominence of the pulmonary markings in the left lower lung, unchanged. No consolidation. No lung mass. No pleural effusion. No pneumothorax. Cardiomediastinal silhouette: Stable cardiomediastinal silhouette. Bones and soft tissues: The spine shows similar right-sided curvature and degenerative changes. DIVISION OF RADIOLOGY Provider, [facility] - 04/14/2024 * * *Final Report* * * DATE OF EXAM: Apr 14 2024 10:44AM WOX 5291 - XR CHEST 2V FRONTAL/LAT / PROCEDURE REASON: multiple diagnoses * * * * Physician Interpretation * * * * EXAMINATION: CHEST RADIOGRAPH (2 VIEW FRONTAL & LATERAL) CLINICAL HISTORY: Fall (on) (from) other stairs and steps, initial encounter Rib pain on right side MQ: XC2_6 EXAM DATE/TIME: 04/14/2024 10:44 AM COMPARISON: Chest x-ray on 12/23/2023 RESULT: Lines, tubes, and devices: None. Lungs and pleura: Slight prominence of the pulmonary markings in the left lower lung, unchanged. No consolidation. No lung mass. No pleural effusion. No pneumothorax. Cardiomediastinal silhouette: Stable cardiomediastinal silhouette. Bones and soft tissues: The spine shows similar right-sided curvature and degenerative changes. IMPRESSION IMPRESSION: Overall findings unchanged. Community Health Educator: LEONARDO Transcribe Date/Time: Apr 14 2024 10:45A Dictated by : LAURIE KAYE MD This examination was interpreted and the report reviewed and electronically signed by: LAURIE KAYE MD on Apr 14 2024 10:46AM EST [facility] Radiology Study observation (narrative) [facility] XR Chest PA and LateralOrder ed By: Ccf Provider on 04-14-2024 [facility] CNOVon 03-26-2024 CNOV Office Visit (FAMPWS ) ----- BASIMDIONY SIMS Ortiz ([id number]) 1955 F Date Time Provider Department 03/26/24 11:40 AM ALEX BROWN During your visit today, we recorded the following information about you: Pulse Respiration Blood pressure Weight 92/minute 14/minute 150/86 41.3 kg Alex Brown, ALAN.[facility] 03/26/2024 11:48 AM Signed Chief Complaint Patient presents with: Follow Up: Left shoulder pain after fall on 03/17 [facility] Diony Ramirez is a 69 year old female who presents here today for Above Complaints.. Patient presents for follow up for fall. Patient was seen 03/17 and xrays were normal. Patient reports continued pain and locking/rubbing of left shoulder joint. Does not happen with all movements but intermittently. Past medical history, appointments, medications, allergies reviewed. Previous Medical History PAST MEDICAL HISTORY Diagnosis Date Abnormal toxicological findings 02/01/2021 Tox screen 01/27/2021 showed no benzos and pos for oxycodone which patient was not on. Patient informed of no further controlled med refills. 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 Chronic anxiety 06/17/2018 Degenerative arthritis of lumbar spine 05/06/2014 Ectatic thoracic aorta (HCC) 12/04/2022 CT done 12/2022 Elevated blood sugar 01/27/2021 Emphysema of lung ([facility]) 03/18/2015 Essential hypertension, benign 02/21/2015 Ex-smoker 01/27/2021 Started around 89 and quit 2004. Smoked about 1.5 PPD GERD without esophagitis 09/12/2022 Herpes 01/27/2021 History of 2019 novel coronavirus disease (COVID-19) 01/27/202106/2020 History of small bowel obstruction HSV (herpes simplex virus) anogenital infection 02/08/2016 Living will on file at physician's office 09/27/2022 DPA: Reina Denise (aunt) Lung mass 09/07/2011 Lung nodules 05/30/[address] Suleman Gustafson Medicare annual wellness visit, subsequent 01/27/2021 Medicare Part B: NA Last done: Multiple thyroid nodules 01/27/[address] Vigil and f/u was stable. Told no need for further f/u. 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 Takes mid morning. Substance agreement signed and Tox screen done 12/2020. 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 COLONOSCOPY FLX DX W/COLLJ SPEC WHEN PFRMD 08/19/2006 Repeat in COLONOSCOPY FLX DX W/COLLJ SPEC WHEN PFRMD 06/27/2016 Colonoscopy CRANIOPLASTY SKULL DEF/REPAIR/ BRAIN 09/14/2014 See scanned documents - status post ESOPHAGOGASTRODUODENOSCOP Y TRANSORAL DIAGNOSTIC 06/27/2016 EGD ESOPHAGOGASTRODUODENOSCOP Y TRANSORAL DIAGNOSTIC 06/30/2018 EGD IANDD ABSCESS CMPLX/MULT 07/2013 Epidural abscess- MSSA LIG/TRNSXJ FLP TUBE ABDL/VAG APPR UNI/BI Tubal ligation PAST SURGICAL HISTORY OF spinal surgery PAST SURGICAL HISTORY OF retinal detachment OD, (2 tears) PAST SURGICAL HISTORY OF 2012 back surgery STRESS TEST NUCLEAR 05/23/2021 negative Family History FAMILY HISTORY Problem Relation Age of Onset Hypertension Mother other (cerebral aneurysm) Mother Colon Polyps Father Hypertension Father COPD Father Cancer Father Bladder Cancer other (Past medical history) Father abdominal aneurysm/bladder cancer other (aortic aneurysm) Father Aneurysm Paternal Grandfather Patient Allergies ALLERGIES Allergen Reactions Fish Unknown Horse/Equine Contai* Unknown Lisinopril Cough Shellfish Derived Unknown Current Medications Current Outpatient Medications on File Prior to Visit Medication Sig penicillin V potassium 500 mg tablet Take 500 mg by mouth. omeprazole (PRILOSEC) 40 mg capsule Take 1 capsule by mouth once daily. traZODone (DESYREL) 150 mg tablet Take 1 tablet by mouth daily at bedtime. benzonatate (TESSALON PERLES) 100 mg capsule Take 2 capsules by mouth three times a day as needed. baclofen 10 mg tablet Take 1 tablet by mouth three times a day as needed (muscle spasms). amLODIPine (NORVASC) 2.5 mg tablet Take 1 tablet by mouth once daily. hydrOXYzine HCl (ATARAX) 10 mg tablet Take 1 tablet by mouth daily at bedtime. Benzonatate 200 mg capsule Take 1 capsule by mouth three times a day as needed. (Patient not taking: Reported on 10/15/2023) FOLIC AC (more content not included)... Normal [facility] No Panel Informationon 03-18 IMPRESSION: No acute osseous abnormality. Mild LEFT glenohumeral and acromioclavicular osteoarthritis. Community Health Educator: LEONARDO Transcribe Date/Time: Mar 18 2024 12:04P Dictated by : GARETH ESCAMILLA DO This examination was interpreted and the report reviewed and electronically signed by: GARETH ESCAMILLA DO on Mar 18 2024 12:08PM [facility] DIVISION OF RADIOLOGY Radiology Study observation (narrative) [facility] No Panel InformationOrdered By: Ccf Provider on 03-18-2024 [facility] XR Clavicle - left 2 Viewson 03-18-2024 * * *Final Report* * * DATE OF EXAM: Mar 18 2024 11:12AM WOX [id number] - XR CLAVICLE 2V LT / PROCEDURE REASON: multiple diagnoses * * * * Physician Interpretation * * * * EXAMINATION: XR CLAVICLE 2V LT, XR SHLDR >/=3V AP/MECHELLE AP/OTHR LT PATIENT/TECHNOLOGIST PROVIDED HISTORY: missed some steps and fell yesterday pain all anterior left shoulder/clavicle area CLINICAL INFORMATION: 69 years old Female with Pain of left clavicle. Fall, initial encounter TECHNIQUE: XR CLAVICLE 2V LT, XR SHLDR >/=3V AP/MECHELLE AP/OTHR LT Laterality: LEFT Number of different views (projections): 2 views of the LEFT clavicle and 3 views of the LEFT shoulder. COMPARISON: Radiographs 02/26/2009 RESULT: No acute fracture or dislocation. Mild glenohumeral and acromial clavicular osteoarthritis. Acromiohumeral interval is maintained. Degenerative changes in the cervicothoracic spine. DIVISION OF RADIOLOGY Provider, [facility] - 03/18/2024 * * *Final Report* * * DATE OF EXAM: Mar 18 2024 11:12AM WOX 5316 - XR CLAVICLE 2V LT / PROCEDURE REASON: multiple diagnoses * * * * Physician Interpretation * * * * EXAMINATION: XR CLAVICLE 2V LT, XR SHLDR >/=3V AP/MECHELLE AP/OTHR LT PATIENT/TECHNOLOGIST PROVIDED HISTORY: missed some steps and fell yesterday pain all anterior left shoulder/clavicle area CLINICAL INFORMATION: 69 years old Female with Pain of left clavicle. Fall, initial encounter TECHNIQUE: XR CLAVICLE 2V LT, XR SHLDR >/=3V AP/MECHELLE AP/OTHR LT Laterality: LEFT Number of different views (projections): 2 views of the LEFT clavicle and 3 views of the LEFT shoulder. COMPARISON: Radiographs 02/26/2009 RESULT: No acute fracture or dislocation. Mild glenohumeral and acromial clavicular osteoarthritis. Acromiohumeral interval is maintained. Degenerative changes in the cervicothoracic spine. IMPRESSION IMPRESSION: No acute osseous abnormality. Mild LEFT glenohumeral and acromioclavicular osteoarthritis. Community Health Educator: LEONARDO Transcribe Date/Time: Mar 18 2024 12:04P Dictated by : GARETH ESCAMILLA DO This examination was interpreted and the report reviewed and electronically signed by: GARETH ESCAMILLA DO on Mar 18 2024 12:08PM [facility] XR Shoulder - left 3 Viewson 03-18-2024 * * *Final Report* * * DATE OF EXAM: Mar 18 2024 11:12AM WOX 5252 - XR SHLDR >/=3V AP/MECHELLE AP/OTHR LT / PROCEDURE REASON: multiple diagnoses * * * * Physician Interpretation * * * * EXAMINATION: XR CLAVICLE 2V LT, XR SHLDR >/=3V AP/MECHELLE AP/OTHR LT PATIENT/TECHNOLOGIST PROVIDED HISTORY: missed some steps and fell yesterday pain all anterior left shoulder/clavicle area CLINICAL INFORMATION: 69 years old Female with Pain of left clavicle. Fall, initial encounter TECHNIQUE: XR CLAVICLE 2V LT, XR SHLDR >/=3V AP/MECHELLE AP/OTHR LT Laterality: LEFT Number of different views (projections): 2 views of the LEFT clavicle and 3 views of the LEFT shoulder. COMPARISON: Radiographs 02/26/2009 RESULT: No acute fracture or dislocation. Mild glenohumeral and acromial clavicular osteoarthritis. Acromiohumeral interval is maintained. Degenerative changes in the cervicothoracic spine. DIVISION OF RADIOLOGY Provider, [facility] - 03/18/2024 * * *Final Report* * * DATE OF EXAM: Mar 18 2024 11:12AM WOX 5252 - XR SHLDR >/=3V AP/MECHELLE AP/OTHR LT / PROCEDURE REASON: multiple diagnoses * * * * Physician Interpretation * * * * EXAMINATION: XR CLAVICLE 2V LT, XR SHLDR >/=3V AP/MECHELLE AP/OTHR LT PATIENT/TECHNOLOGIST PROVIDED HISTORY: missed some steps and fell yesterday pain all anterior left shoulder/clavicle area CLINICAL INFORMATION: 69 years old Female with Pain of left clavicle. Fall, initial encounter TECHNIQUE: XR CLAVICLE 2V LT, XR SHLDR >/=3V AP/MECHELLE AP/OTHR LT Laterality: LEFT Number of different views (projections): 2 views of the LEFT clavicle and 3 views of the LEFT shoulder. COMPARISON: Radiographs 02/26/2009 RESULT: No acute fracture or dislocation. Mild glenohumeral and acromial clavicular osteoarthritis. Acromiohumeral interval is maintained. Degenerative changes in the cervicothoracic spine. IMPRESSION IMPRESSION: No acute osseous abnormality. Mild LEFT glenohumeral and acromioclavicular osteoarthritis. Community Health Educator: LEONARDO Transcribe Date/Time: Mar 18 2024 12:04P Dictated by : GARETH ESCAMILLA DO This examination was interpreted and the report reviewed and electronically signed by: GARETH ESCAMILLA DO on Mar 18 2024 12:08PM EST [facility] COVID & INFLUENZA A/B & RSV NAAT, ROUTINEon 12-23-2023 FLUAV RNA THOMAS+probe Ql (Unsp spec) Not detected Not Detected [facility] FLUBV RNA THOMAS+probe Ql (Unsp spec) Not detected Not Detected [facility] Interpretation and review of laboratory results Normal [facility] RSV A RNA THOMAS+probe Ql (Unsp spec) Not detected Not Detected [facility] SARS-CoV-2 (COVID-19) RNA THOMAS+probe Ql (Resp) Not detected See comment [facility] Comment on above: The method used is R T-PCR or an equivalent NAAT method. Reference Range (the expected result in uninfected individuals): Not detected For upper respirator y tract samples, this test has been authorized by FDA under Emergenecy Use Authorization (EUA). For lower respiratory tract samples, this test was developed and its performance characteristics determined by [facility]'s [facility] ([facility]). It has not been cleared or approved by the FDA. [facility] is regulated under CLIA as qualified to perform high-complexity testing. This test is used for clinical purposes. It should not be regarded as investigational or for research. Test performed by [facility], [facility] [place], [address], [place] [address]. [facility] XR Chest PA and Lateralon IMPRESSION: Interstitial prominence in the lower lungs. No pleural effusion or consolidation. Community Health Educator: LEONARDO Transcribe Date/Time: Dec 23 2023 11:12A Dictated by : DELMI AYALA MD This examination was interpreted and the report reviewed and electronically signed by: DELMI AYALA MD on Dec 23 2023 11:13AM [facility] DIVISION OF RADIOLOGY * * *Final Report* * * DATE OF EXAM: Dec 23 2023 10:54AM WOX 5291 - XR CHEST 2V FRONTAL/LAT / PROCEDURE REASON: URI, acute * * * * Physician Interpretation * * * * EXAMINATION: CHEST RADIOGRAPH (2 VIEW FRONTAL & LATERAL) CLINICAL HISTORY: URI, acute MQ: XC2_6 EXAM DATE/TIME: 12/23/2023 10:54 AM COMPARISON: Chest x-ray 07/09/2022 RESULT: Lines, tubes, and devices: None. Lungs and pleura: Hyperinflation of the lungs. Interstitial prominence in the lower lungs. No consolidation. No pleural effusion or pneumothorax. Cardiomediastinal silhouette: Normal cardiomediastinal silhouette. Bones and soft tissues: Degenerative disease of the thoracic spine DIVISION OF RADIOLOGY Provider, [facility] - 12/23/2023 * * *Final Report* * * DATE OF EXAM: Dec 23 2023 10:54AM WOX 5291 - XR CHEST 2V FRONTAL/LAT / PROCEDURE REASON: URI, acute * * * * Physician Interpretation * * * * EXAMINATION: CHEST RADIOGRAPH (2 VIEW FRONTAL & LATERAL) CLINICAL HISTORY: URI, acute MQ: XC2_6 EXAM DATE/TIME: 12/23/2023 10:54 AM COMPARISON: Chest x-ray 07/09/2022 RESULT: Lines, tubes, and devices: None. Lungs and pleura: Hyperinflation of the lungs. Interstitial prominence in the lower lungs. No consolidation. No pleural effusion or pneumothorax. Cardiomediastinal silhouette: Normal cardiomediastinal silhouette. Bones and soft tissues: Degenerative disease of the thoracic spine IMPRESSION IMPRESSION: Interstitial prominence in the lower lungs. No pleural effusion or consolidation. Community Health Educator: PSCB Transcribe Date/Time: Dec 23 2023 11:12A Dictated by : DELMI AYALA MD This examination was interpreted and the report reviewed and electronically signed by: DELMI AYALA MD on Dec 23 2023 11:13AM EST [facility] Radiology Study observation (narrative) [facility] XR Chest PA and LateralOrder ed By: Ccf Provider on 12-23-2023 [facility] No Panel Informationon 10-15 Radiology Study observation (narrative) [facility] XR Cervical spine AP and Lat eral and obliqueon 10-15-2023 IMPRESSION: DEGENERATIVE CHANGE AND ALIGNMENT ABNORMALITIES DESCRIBED Community Health Educator: LEONARDO Transcribe Date/Time: Oct 15 2023 2:46P Dictated by : CECILIO GAVIRIA MD This examination was interpreted and the report reviewed and electronically signed by: CECILIO GAVIRIA MD on Oct 15 2023 2:48PM EST DIVISION OF RADIOLOGY * * *Final Report* * * DATE OF EXAM: Oct 15 2023 9:38AM WOX 5311 - XR CERVICAL 4V AP/LAT/OBL / PROCEDURE REASON: multiple diagnoses * * * * Physician Interpretation * * * * Examination: XR CERVICAL 4V AP/LAT/OBL History: Neck pain Acute pain of right shoulder Technique: XR CERVICAL 4V AP/LAT/OBL Comparison: 03/16/2020 RESULT: Moderate marginal osteophytes at C4-5 and C5-6. Mild anterior position of C4 on C5. Mild posterior position of C5 on C6. Moderate osteophytosis throughout the cervical spine. Mild disc space narrowing at C3-4, C5-6 and C6-7. No fracture or prevertebral swelling. DIVISION OF RADIOLOGY Provider, [facility] - 10/15/2023 * * *Final Report* * * DATE OF EXAM: Oct 15 2023 9:38AM WOX 5311 - XR CERVICAL 4V AP/LAT/OBL / PROCEDURE REASON: multiple diagnoses * * * * Physician Interpretation * * * * Examination: XR CERVICAL 4V AP/LAT/OBL History: Neck pain Acute pain of right shoulder Technique: XR CERVICAL 4V AP/LAT/OBL Comparison: 03/16/2020 RESULT: Moderate marginal osteophytes at C4-5 and C5-6. Mild anterior position of C4 on C5. Mild posterior position of C5 on C6. Moderate osteophytosis throughout the cervical spine. Mild disc space narrowing at C3-4, C5-6 and C6-7. No fracture or prevertebral swelling. IMPRESSION IMPRESSION: DEGENERATIVE CHANGE AND ALIGNMENT ABNORMALITIES DESCRIBED Community Health Educator: [facility] Transcribe Date/Time: Oct 15 2023 2:46P Dictated by : CECILIO GAVIRIA MD This examination was interpreted and the report reviewed and electronically signed by: CECILIO GAVIRIA MD on Oct 15 2023 2:48PM EST [facility] XR Cervical spine AP and Lat eral and obliqueOrdered By: [facility]cf Provider on 10-15-2023 [facility] XR Shoulder - right 3 Viewso n 10-15-2023 IMPRESSION: No acute fracture. Degenerative disease of the right shoulder. Community Health Educator: [facility] Transcribe Date/Time: Oct 15 2023 4:59P Dictated by : DELMI AYALA MD This examination was interpreted and the report reviewed and electronically signed by: DELMI AYALA MD on Oct 15 2023 5:00PM [facility] DIVISION OF RADIOLOGY * * *Final Report* * * DATE OF EXAM: Oct 15 2023 9:38AM WOX 5253 - XR SHLDR >/=3V AP/MECHELLE AP/OTHR RT / PROCEDURE REASON: multiple diagnoses * * * * Physician Interpretation * * * * EXAMINATION: XR SHLDR >/=3V AP/MECHELLE AP/OTHR RT CLINICAL HISTORY: Right shoulder pain Technique: XR SHLDR >/=3V AP/MECHELLE AP/OTHR RT -- RIGHT with 3 views on 3 images Comparison: X-ray right shoulder 03/16/2020 RESULT: No acute fracture or dislocation. Right glenohumeral joint space is maintained. Small glenohumeral marginal osteophytes. There is acromioclavicular joint space narrowing. DIVISION OF RADIOLOGY Provider, [facility] - 10/15/2023 * * *Final Report* * * DATE OF EXAM: Oct 15 2023 9:38AM WOX 5253 - XR SHLDR >/=3V AP/MECHELLE AP/OTHR RT / PROCEDURE REASON: multiple diagnoses * * * * Physician Interpretation * * * * EXAMINATION: XR SHLDR >/=3V AP/MECHELLE AP/OTHR RT CLINICAL HISTORY: Right shoulder pain Technique: XR SHLDR >/=3V AP/MECHELLE AP/OTHR RT -- RIGHT with 3 views on 3 images Comparison: X-ray right shoulder 03/16/2020 RESULT: No acute fracture or dislocation. Right glenohumeral joint space is maintained. Small glenohumeral marginal osteophytes. There is acromioclavicular joint space narrowing. IMPRESSION IMPRESSION: No acute fracture. Degenerative disease of the right shoulder. Community Health Educator: [facility] Transcribe Date/Time: Oct 15 2023 4:59P Dictated by : DELMI AYALA MD This examination was interpreted and the report reviewed and electronically signed by: DELMI AYALA MD on Oct 15 2023 5:00PM [facility] XR Lumbar spine Views W flex ion and W extensionon 08-21-2023 IMPRESSION: Multilevel lumbar degenerative findings with postsurgical changes. At L3-4 there is 2 mm spondylolisthesis with flexion and anatomic positioning and neutral and extension. The L5-S1 level. There is mild spondylolisthesis which slightly increases with flexion. Community Health Educator: LEONARDO Transcribe Date/Time: Aug 21 2023 3:53P Dictated by : VELIA RIVERA MD This examination was interpreted and the report reviewed and electronically signed by: VELIA RIVERA MD on Aug 21 2023 4:00PM [facility] DIVISION OF RADIOLOGY * * *Final Report* * * DATE OF EXAM: Aug 15 2023 12:25PM WOX 5231 - XR LUMBAR 4V AP/LAT/ FLEX/EXT / PROCEDURE REASON: multiple diagnoses * * * * Physician Interpretation * * * * Lumbar spine with bending views History Lumbar radiculopathy Numbness and tingling of both legs Numbness and tingling of both legs Acute bilateral low back pain with bilateral sciatica Comparison study: none Findings: AP, and lateral neutral, flexion and extension views were performed. Mild levoscoliosis. L3-L5 laminectomies. Schmorl's nodes at L2 and L3 superior endplates, anteriorly. Vertebral bodies otherwise intact. Multilevel disc space narrowing and endplate spurring. There is about 3 mm spondylolisthesis of L5-S1 level in neutral and extension positioning. This increases to about 5 mm flexion with flexion. At the L3-4 level there is 2 mm spondylolisthesis with flexion and anatomic alignment in neutral and extension. Alignment otherwise anatomic. Counting reference: Lumbosacral junction. For the purposes of this report, L4-5 is considered the level of the iliac crest and there are 5 lumbar-type vertebrae. Anatomic Variants: None. DIVISION OF RADIOLOGY Provider, [facility] - 08/21/2023 * * *Final Report* * * DATE OF EXAM: Aug 15 2023 12:25PM WOX 5231 - XR LUMBAR 4V AP/LAT/ FLEX/EXT / PROCEDURE REASON: multiple diagnoses * * * * Physician Interpretation * * * * Lumbar spine with bending views History Lumbar radiculopathy Numbness and tingling of both legs Numbness and tingling of both legs Acute bilateral low back pain with bilateral sciatica Comparison study: none Findings: AP, and lateral neutral, flexion and extension views were performed. Mild levoscoliosis. L3-L5 laminectomies. Schmorl's nodes at L2 and L3 superior endplates, anteriorly. Vertebral bodies otherwise intact. Multilevel disc space narrowing and endplate spurring. There is about 3 mm spondylolisthesis of L5-S1 level in neutral and extension positioning. This increases to about 5 mm flexion with flexion. At the L3-4 level there is 2 mm spondylolisthesis with flexion and anatomic alignment in neutral and extension. Alignment otherwise anatomic. Counting reference: Lumbosacral junction. For the purposes of this report, L4-5 is considered the level of the iliac crest and there are 5 lumbar-type vertebrae. Anatomic Variants: None. IMPRESSION IMPRESSION: Multilevel lumbar degenerative findings with postsurgical changes. At L3-4 there is 2 mm spondylolisthesis with flexion and anatomic positioning and neutral and extension. The L5-S1 level. There is mild spondylolisthesis which slightly increases with flexion. Community Health Educator: LEONARDO Transcribe Date/Time: Aug 21 2023 3:53P Dictated by : VELIA RIVERA MD This examination was interpreted and the report reviewed and electronically signed by: VELIA RIVERA MD on Aug 21 2023 4:00PM EST [facility] XR Lumbar spine Views W flex ion and W extensionOrdered By: Ccf Provider on 08-21-2023 [facility] XR HIP BILATERAL 5V PEL/AP/L AT EACH HIPon 08-20-2023 IMPRESSION: Mild degenerative changes at the hips with no acute fractures seen Community Health Educator: LEONARDO Transcribe Date/Time: Aug 20 2023 6:58P Dictated by : CELESTINO MOTA MD This examination was interpreted and the report reviewed and electronically signed by: CELESTINO MOTA MD on Aug 20 2023 6:59PM [facility] DIVISION OF RADIOLOGY * * *Final Report* * * DATE OF EXAM: Aug 15 2023 12:25PM WOX 5353 - XR HIP SURJIT 5V PEL+ AP/LAT EA HIP / PROCEDURE REASON: multiple diagnoses * * * * Physician Interpretation * * * * XR HIP SURJIT 5V PEL+ AP/LAT EA HIP PROVIDED HISTORY: Lumbar radiculopathy Numbness and tingling of both legs Numbness and tingling of both legs COMPARISON: No previous similar exams are available for comparison TECHNIQUE: AP pelvis. 2 views of the right hip and 2 views of the left hip RESULT: The bony mineralization is grossly unremarkable. Osseous alignment appears intact. Mild degenerative narrowing of both hip joints with slight subchondral sclerosis. No acute fracture or dislocation is seen at the right hip. No acute fracture or dislocation is seen at the left hip DIVISION OF RADIOLOGY Provider, [facility] - 08/20/2023 * * *Final Report* * * DATE OF EXAM: Aug 15 2023 12:25PM WOX 5353 - XR HIP SURJIT 5V PEL+ AP/LAT EA HIP / PROCEDURE REASON: multiple diagnoses * * * * Physician Interpretation * * * * XR HIP SURJIT 5V PEL+ AP/LAT EA HIP PROVIDED HISTORY: Lumbar radiculopathy Numbness and tingling of both legs Numbness and tingling of both legs COMPARISON: No previous similar exams are available for comparison TECHNIQUE: AP pelvis. 2 views of the right hip and 2 views of the left hip RESULT: The bony mineralization is grossly unremarkable. Osseous alignment appears intact. Mild degenerative narrowing of both hip joints with slight subchondral sclerosis. No acute fracture or dislocation is seen at the right hip. No acute fracture or dislocation is seen at the left hip IMPRESSION IMPRESSION: Mild degenerative changes at the hips with no acute fractures seen Community Health Educator: LEONARDO Transcribe Date/Time: Aug 20 2023 6:58P Dictated by : CELESTINO MOTA MD This examination was interpreted and the report reviewed and electronically signed by: CELESTINO MOTA MD on Aug 20 2023 6:59PM EST [facility] No Panel Informationon 08-15 Radiology Study observation (narrative) [facility] CBC W Auto Differential pane l (Bld)on 06-04-2023 Basophils (Bld) [#/Vol] 0.06 10*3/uL <0.11 k/uL [facility] Basophils/100 WBC (Bld) 0.5 % [facility] Differential cell count method Nom (Bld) Auto [facility] Eosinophils (Bld) [#/Vol] 0.10 10*3/uL <0.46 k/uL [facility] Eosinophils/100 WBC (Bld) 0.9 % [facility] Erythrocyte distribution width (RBC) [Ratio] 12.4 % 11.5 - 15.0 % [facility] Hematocrit (Bld) [Volume fraction] 45.7 % 36.0 - 46.0 % [facility] Hemoglobin (Bld) [Mass/Vol] 14.9 g/dL 11.5 - 15.5 g/dL [facility] Immature granulocytes (Bld) [#/Vol] <0.10 k/uL [facility] Immature granulocytes/100 WBC (Bld) 0.2 % [facility] Lymphocytes (Bld) [#/Vol] 1.43 10*3/uL 1.00 - 4.00 k/uL [facility] Lymphocytes/100 WBC (Bld) 12.7 % [facility] MCH (RBC) [Entitic mass] 33.6 pg 26.0 - 34.0 pg [facility] MCHC (RBC) [Mass/Vol] 32.6 g/dL 30.5 - 36.0 g/dL [facility] MCV (RBC) [Entitic vol] 102.9 fL High 80.0 - 100.0 fL [facility] Monocytes (Bld) [#/Vol] 1.03 10*3/uL High <0.87 k/uL [facility] Monocytes/100 WBC (Bld) 9.2 % [facility] Neutrophils (Bld) [#/Vol] 8.61 10*3/uL High 1.45 - 7.50 k/uL [facility] Neutrophils/100 WBC (Bld) 76.5 % [facility] Nucleated RBC (Bld) [#/Vol] <0.01 k/uL [facility] Nucleated RBC/100 WBC (Bld) [Ratio] 0.0 /100 WBC [facility] Platelet mean volume (Bld) [Entitic vol] 9.8 fL 9.0 - 12.7 fL [facility] Platelets (Bld) [#/Vol] 262 10*3/uL 150 - 400 k/uL [facility] RBC (Bld) [#/Vol] 4.44 10*6/uL 3.90 - 5.2 0 m/uL [facility] WBC (Bld) [#/Vol] 11.25 10*3/uL High 3.70 - 11 .00 k/uL [facility] Absolute lymphocyte countOrd ered By: Mick Pelletier on 06-02-2023 Lymphocytes Auto (Unsp spec) [#/Vol] 1.34 10*3/uL 0.83-4.51 [facility] Basophil percentageOrdered B y: Mick Pelletier on 06-02-2023 Basophils/100 WBC (Bld) 0.7 % 0-1 [facility] Chloride [Moles/Vol] 110 mmol/L 98-107 [facility] Eosinophils/100 WBC (Bld) 1.3 % 0-5 [facility] Glucose [Mass/Vol] 74 mg/dL 74-106 [facility] Neutrophils (Bld) [#/Vol] 7.9 10*3/uL 2.0-7.7 [facility] Neutrophils/100 WBC (Bld) 74.5 % 47-70 [facility] Potassium [Moles/Vol] 3.6 mmol/L 3.5-5.1 [facility] Sodium [Moles/Vol] 142 mmol/L 136-145 [facility] WBC (Bld) [#/Vol] 10.6 10*3/uL 4.4-11.0 [facility] Blood erythrocytes count (nu mber/volume)Ordered By: Mick Pelletier on 06-02-2023 RBC (Bld) [#/Vol] 4.22 10*6/uL 4.2-5.4 [facility] Blood hemoglobin measurement (mass/volume)Ordered By: Mick Pelletier on 06-02-2023 Hemoglobin (Bld) [Mass/Vol] 14.1 g/dL 12.0-15.0 [facility] Blood lymphocytes/100 leukoc ytesOrdered By: Mick Pelletier on 06-02-2023 Lymphocytes/100 WBC (Bld) 12.6 % 19-41 [facility] Blood monocytes/100 leukocyt esOrdered By: Mick Pelletier on 06-02-2023 Monocytes/100 WBC (Bld) 10.5 % 0-10 [facility] Blood platelet mean volumeOr dered By: Mick Pelletier on 06-02-2023 Platelet mean volume (Bld) [Entitic vol] 9.4 fL 6.2-12.0 [facility] Determination of erythrocyte mean corpuscular volume (MCV)Ordered By: Mick Pelletier on 06-02-2023 MCV (RBC) [Entitic vol] 102.8 fL 81-99 [facility] Hematocrit Auto (Bld) [Volum e fraction]Ordered By: Mick Pelletier on 06-02-2023 Hematocrit (Bld) [Volume fraction] 43.4 % 37-47 [facility] Laboratory - Chemistry and C hemistry - challengeOrdered By: Mick Pelletier on 06-02-2023 CO2 [Moles/Vol] 23.0 mmol/L 21.0-32.0 [facility] Urea nitrogen/Creatinine [Mass ratio] 27.7 mg/mg 10-20 [facility] Laboratory - Hematology and Cell countsOrdered By: Mick Pelletier on 06-02-2023 Erythrocyte distribution width (RBC) [Entitic vol] 47.8 fL 35.1-43.9 [facility] Erythrocyte distribution width (RBC) [Ratio] 12.6 % 11.6-14.6 [facility] Immature granulocytes/100 WBC (Bld) 0.400 % 0.0-0.9 [facility] Comment on above: IG% - Immature Granu locytes (promyelocytes, myelocytes and metamyelocytes) > 1% indicates that a LEFT SHIFT is Present. MCH (RBC) [Entitic mass] 33.4 pg 27.0-32.0 [facility] Nucleated RBC/100 WBC (Bld) [Ratio] 0 % 0-5 [facility] MCHC Auto (RBC) [Mass/Vol]Or dered By: Mick Pelletier on 06-02-2023 MCHC (RBC) [Mass/Vol] 32.5 g/dL 32-36 [facility] No Panel InformationOrdered By: Mick Pelletier on 06-02-2023 Estimated Creatinine Clearance Calc 34.79 ml/min [facility] Estimated GFR (MDRD) Amer 134 mL/min >60 [facility] Comment on above: GFR Calc Estimated GFR (MDRD) Non-Af Amer 111 mL/min >60 [facility] Comment on above: Non- GFR Calc Platelets bldOrdered By: Dontae Pelletier on 06-02-2023 Platelets (Bld) [#/Vol] 266 10*3/uL 150-450 [facility] Serum or plasma calcium alonso urement (mass/volume)Ordered By: Mick Pelletier on 06-02-2023 Calcium [Mass/Vol] 8.0 mg/dL 8.5-10.1 [facility] Serum or plasma creatinine m easurement (mass/volume)Ordered By: Mick Pelletier on 06-02-2023 Creatinine [Mass/Vol] 0.58 mg/dL 0.55-1.02 [facility] Comment on above: The validity of the calculated GFR & GFRAA in patients over 70 years has not been determined. Clinical correlation is essential. Serum or plasma urea nitroge n measurement (mass/volume)Ordered By: Mick Pelletier on 06-02-2023 Urea nitrogen [Mass/Vol] 16 mg/dL 7-18 [facility] Thin prep Papanicolaou smear with manual screeningOrdered By: Mick Pelletier on 06-02-2023 Thin prep Papanicolaou smear with manual screening 9 5-15 [facility] Absolute lymphocyte countOrd ered By: Tyler Green on 05-31-2023 Lymphocytes Auto (Unsp spec) [#/Vol] 1.89 10*3/uL 0.83-4.51 [facility] Basophil percentageOrdered B y: Tyler Green on 05-31-2023 Basophil percentage 0 SEEN /hpf 0-5 [facility] [place] Basophils/100 WBC (Bld) 0.6 % 0-1 [facility] Chloride [Moles/Vol] 101 mmol/L 98-107 [facility] [place] Eosinophils/100 WBC (Bld) 1.4 % 0-5 [facility] Glucose [Mass/Vol] 101 mg/dL 74-106 [facility] Comment on above: Fasting Glucose resu lt from 100 to 125 mg/dL suggests IMPAIRED HOMEOSTASIS per A.D.A. criteria. Lactate [Moles/Vol] 1.0 mmol/L 0.4-2.0 [facility] Neutrophils (Bld) [#/Vol] 10.6 10*3/uL 2.0-7.7 [facility] Neutrophils/100 WBC (Bld) 76.5 % 47-70 [facility] Potassium [Moles/Vol] 4.1 mmol/L 3.5-5.1 [facility] Comment on above: Slight Hemolysis, Re sult may be falsely increased. Sodium [Moles/Vol] 135 mmol/L 136-145 [facility] WBC (Bld) [#/Vol] 13.8 10*3/uL 4.4-11.0 [facility] Bilirubin Test strip Ql (U)O rdered By: Tyler Green on 05-31-2023 Bilirubin Ql (U) Negative Negative [facility] Blood erythrocytes count (nu mber/volume)Ordered By: Tyler Green on 05-31-2023 RBC (Bld) [#/Vol] 4.61 10*6/uL 4.2-5.4 [facility] Blood hemoglobin measurement (mass/volume)Ordered By: Tyler Green on 05-31-2023 Hemoglobin (Bld) [Mass/Vol] 15.6 g/dL 12.0-15.0 [facility] Blood lymphocytes/100 leukoc ytesOrdered By: Tyler Green on 05-31-2023 Lymphocytes/100 WBC (Bld) 13.7 % 19-41 [facility] Blood monocytes/100 leukocyt esOrdered By: Tyler Green on 05-31-2023 Monocytes/100 WBC (Bld) 7.4 % 0-10 [facility] Blood platelet mean volumeOr dered By: Tyler Green on 05-31-2023 Platelet mean volume (Bld) [Entitic vol] 9.4 fL 6.2-12.0 [facility] Determination of erythrocyte mean corpuscular volume (MCV)Ordered By: Tyler Green on 05-31-2023 MCV (RBC) [Entitic vol] 98.9 fL 81-99 [facility] Hematocrit Auto (Bld) [Volum e fraction]Ordered By: Tyler Green on 05-31-2023 Hematocrit (Bld) [Volume fraction] 45.6 % 37-47 [facility] Ketones Test strip Ql (U)Ord ered By: Tyler Green on 05-31-2023 Ketones Ql (U) Negative Negative [facility] Laboratory - Chemistry and C hemistry - challengeOrdered By: Tyler Green on 05-31-2023 CO2 [Moles/Vol] 29.0 mmol/L 21.0-32.0 [facility] Urea nitrogen/Creatinine [Mass ratio] 19.0 mg/mg 10-20 [facility] Laboratory - Hematology and Cell countsOrdered By: Tyler Green on 05-31-2023 Erythrocyte distribution width (RBC) [Entitic vol] 44.8 fL 35.1-43.9 [facility] Erythrocyte distribution width (RBC) [Ratio] 12.3 % 11.6-14.6 [facility] Immature granulocytes/100 WBC (Bld) 0.400 % 0.0-0.9 [facility] Comment on above: IG% - Immature Granu locytes (promyelocytes, myelocytes and metamyelocytes) > 1% indicates that a LEFT SHIFT is Present. MCH (RBC) [Entitic mass] 33.8 pg 27.0-32.0 [facility] Nucleated RBC/100 WBC (Bld) [Ratio] 0 % 0-5 [facility] MCHC Auto (RBC) [Mass/Vol]Or dered By: Tyler Green on 05-31-2023 MCHC (RBC) [Mass/Vol] 34.2 g/dL 32-36 [facility] Mucus LM Ql (Urine sed)Order ed By: Tyler Green on 05-31-2023 Mucus Ql (Urine sed) 0 SEEN /hpf [facility] Nitrite Test strip Ql (U)Ord ered By: Tyler Green on 05-31-2023 Nitrite Ql (U) Negative Negative [facility] No Panel InformationOrdered By: Tyler Green on 05-31-2023 Estimated Creatinine Clearance Calc 35.96 ml/min [facility] Estimated GFR (MDRD) Amer 121 mL/min >60 [facility] Comment on above: GFR Calc Estimated GFR (MDRD) Non-Af Amer 100 mL/min >60 [facility] Comment on above: Non- GFR Calc Platelets bldOrdered By: Haseeb Green on 05-31-2023 Platelets (Bld) [#/Vol] 299 10*3/uL 150-450 [facility] Protein Test strip Ql (U)Ord ered By: Tyler Green on 05-31-2023 Protein Ql (U) Negative Negative [facility] Serum or plasma calcium alonso urement (mass/volume)Ordered By: Tyler Green on 05-31-2023 Calcium [Mass/Vol] 8.9 mg/dL 8.5-10.1 [facility] Serum or plasma creatinine m easurement (mass/volume)Ordered By: Tyler Green on 05-31-2023 Creatinine [Mass/Vol] 0.63 mg/dL 0.55-1.02 [facility] Comment on above: The validity of the calculated GFR & GFRAA in patients over 70 years has not been determined. Clinical correlation is essential. Serum or plasma urea nitroge n measurement (mass/volume)Ordered By: Tyler Green on 05-31-2023 Urea nitrogen [Mass/Vol] 12 mg/dL 7-18 [facility] Squamous epithelial cells de tection in urine sediment by light microscopyOrdered By: Tyler Green on 05-31-2023 Epithelial cells.squamous LM Ql (Urine sed) 0-5 SEEN /hpf 5-10 [facility] Thin prep Papanicolaou smear with manual screeningOrdered By: Tyler Green on 05-31-2023 Thin prep Papanicolaou smear with manual screening 5 5-15 [facility] Urine blood detectionOrdered By: Tyler Green on 05-31-2023 RBC Ql (U) 25 /ul Negative [facility] RBC Ql (U) 0 SEEN /hpf 0-5 [facility] Urine clarityOrdered By: Haseeb Green on 05-31-2023 Clarity (U) Clear Clear [facility] Urine color determinationOrd ered By: Tyler Green on 05-31-2023 Color (U) Yellow Yellow [facility] Urine glucose detectionOrder ed By: Tyler Green on 05-31-2023 Glucose Ql (U) Normal mg/dl Normal [facility] Urine leukocyte esterase det ection by dipstickOrdered By: Tyler Green on 05-31-2023 Leukocyte esterase Test strip Ql (U) Negative Negative [facility] Urine pHOrdered By: Tyler Green on 05-31-2023 pH (U) 7.0 [pH] 5.0 - 8.0 [facility] Urine sediment bacteria coun t by microscopy (number/high power field)Ordered By: Tyler Green on 05-31-2023 Bacteria LM.HPF (Urine sed) [#/Area] 0 /[HPF] None Seen [facility] Urine specific gravity measu rementOrdered By: Tyler Green on 05-31-2023 Specific gravity (U) [Rel density] 1.010 1.002-1.030 [facility] Urobilinogen Auto test strip Ql (U)Ordered By: Tyler Green on 05-31-2023 Urobilinogen Ql (U) Normal mg/dl Normal [facility] CTA HEAD W IVCONon 3 [facility] Basic metabolic 2000 panelon 02-20-2023 Anion gap [Moles/Vol] 13 mmol/L 9 - 18 mmol/L [facility] Calcium [Mass/Vol] 9.7 mg/dL 8.5 - 10. 2 mg/dL [facility] Chloride [Moles/Vol] 97 mmol/L 97 - 10 5 mmol/L [facility] CO2 [Moles/Vol] 26 mmol/L 22 - 30 mmol/L [facility] Creatinine [Mass/Vol] 0.60 mg/dL 0.58 - 0.96 mg/dL [facility] Estimated Glomerular Filtration Rate 99 mL/min/1.73m >=60 mL/min/1.73m [facility] Glucose [Mass/Vol] 101 mg/dL High 74 - 99 mg/dL [facility] Potassium [Moles/Vol] 4.5 mmol/L 3.7 - 5.1 mmol/L [facility] Sodium [Moles/Vol] 136 mmol/L 136 - 144 mmol/L [facility] Urea nitrogen [Mass/Vol] 16 mg/dL 7 - 21 mg/dL [facility] CBC W Auto Differential pane l (Bld)on 02-20-2023 Basophils (Bld) [#/Vol] 0.07 10*3/uL <0.11 k/uL [facility] Basophils/100 WBC (Bld) 0.6 % [facility] Differential cell count method Nom (Bld) Auto [facility] Eosinophils (Bld) [#/Vol] 0.21 10*3/uL <0.46 k/uL [facility] Eosinophils/100 WBC (Bld) 1.9 % [facility] Erythrocyte distribution width (RBC) [Ratio] 12.0 % 11.5 - 15.0 % [facility] Hematocrit (Bld) [Volume fraction] 44.1 % 36.0 - 46.0 % [facility] Hemoglobin (Bld) [Mass/Vol] 14.5 g/dL 11.5 - 15.5 g/dL [facility] Immature granulocytes (Bld) [#/Vol] 0.10 10*3/uL High <0.10 k/uL [facility] Immature granulocytes/100 WBC (Bld) 0.9 % [facility] Lymphocytes (Bld) [#/Vol] 1.80 10*3/uL 1.00 - 4.00 k/uL [facility] Lymphocytes/100 WBC (Bld) 15.9 % [facility] MCH (RBC) [Entitic mass] 32.7 pg 26.0 - 34.0 pg [facility] MCHC (RBC) [Mass/Vol] 32.9 g/dL 30.5 - 36.0 g/dL [facility] MCV (RBC) [Entitic vol] 99.5 fL 80.0 - 100.0 fL [facility] Monocytes (Bld) [#/Vol] 0.94 10*3/uL High <0.87 k/uL [facility] Monocytes/100 WBC (Bld) 8.3 % [facility] Neutrophils (Bld) [#/Vol] 8.20 10*3/uL High 1.45 - 7.50 k/uL [facility] Neutrophils/100 WBC (Bld) 72.4 % [facility] Nucleated RBC (Bld) [#/Vol] <0.01 k/uL [facility] Nucleated RBC/100 WBC (Bld) [Ratio] 0.0 /100 WBC [facility] Platelet mean volume (Bld) [Entitic vol] 8.6 fL Low 9.0 - 12.7 fL [facility] Platelets (Bld) [#/Vol] 621 10*3/uL High 150 - 400 k/uL [facility] RBC (Bld) [#/Vol] 4.43 10*6/uL 3.90 - 5.2 0 m/uL [facility] WBC (Bld) [#/Vol] 11.32 10*3/uL High 3.70 - 11 .00 k/uL [facility] TSH BLDon 02-20-2023 TSH Qn 1.060 m[IU]/L 0.270 - 4.200 mIU/L [facility] Absolute lymphocyte countOrd ered By: Raymundo Mercado on 02-12-2023 Lymphocytes Auto (Unsp spec) [#/Vol] 1.54 10*3/uL 0.83-4.51 [facility] Basophil percentageOrdered B y: Raymundo Mercado on 02-12-2023 Basophil percentage 0 SEEN /hpf 0-5 [facility] [place] Basophils/100 WBC (Bld) 0.6 % 0-1 [facility] Chloride [Moles/Vol] 97 mmol/L 98-107 [facility] [place] Eosinophils/100 WBC (Bld) 1.9 % 0-5 [facility] Glucose [Mass/Vol] 102 mg/dL 74-106 [facility] Comment on above: Fasting Glucose resu lt from 100 to 125 mg/dL suggests IMPAIRED HOMEOSTASIS per A.D.A. criteria. Neutrophils (Bld) [#/Vol] 6.0 10*3/uL 2.0-7.7 [facility] Neutrophils/100 WBC (Bld) 66.1 % 47-70 [facility] Potassium [Moles/Vol] 3.5 mmol/L 3.5-5.1 [facility] Sodium [Moles/Vol] 133 mmol/L 136-145 [facility] WBC (Bld) [#/Vol] 9.1 10*3/uL 4.4-11.0 [facility] Bilirubin Test strip Ql (U)O rdered By: Raymundo Mercado on 02-12-2023 Bilirubin Ql (U) Negative Negative [facility] Blood erythrocytes count (nu mber/volume)Ordered By: Raymundo Mercado on 02-12-2023 RBC (Bld) [#/Vol] 4.27 10*6/uL 4.2-5.4 [facility] Blood hemoglobin measurement (mass/volume)Ordered By: Raymundo Mercado on 02-12-2023 Hemoglobin (Bld) [Mass/Vol] 14.3 g/dL 12.0-15.0 [facility] Blood lymphocytes/100 leukoc ytesOrdered By: Raymundo Mercado on 02-12-2023 Lymphocytes/100 WBC (Bld) 17.0 % 19-41 [facility] Blood monocytes/100 leukocyt esOrdered By: Raymundo Mercado on 02-12-2023 Monocytes/100 WBC (Bld) 14.0 % 0-10 [facility] Blood platelet mean volumeOr dered By: Raymundo Mercado on 02-12-2023 Platelet mean volume (Bld) [Entitic vol] 8.7 fL 6.2-12.0 [facility] Determination of erythrocyte mean corpuscular volume (MCV)Ordered By: Raymundo Mercado on 02-12-2023 MCV (RBC) [Entitic vol] 98.8 fL 81-99 [facility] Hematocrit Auto (Bld) [Volum e fraction]Ordered By: Raymundo Mercado on 02-12-2023 Hematocrit (Bld) [Volume fraction] 42.2 % 37-47 [facility] Ketones Test strip Ql (U)Ord ered By: Raymundo Mercado on 02-12-2023 Ketones Ql (U) Negative Negative [facility] Laboratory - Chemistry and C hemistry - challengeOrdered By: Raymundo Mercado on 02-12-2023 CO2 [Moles/Vol] 28.0 mmol/L 21.0-32.0 [facility] Urea nitrogen/Creatinine [Mass ratio] 12.3 mg/mg 10-20 [facility] Laboratory - Hematology and Cell countsOrdered By: Raymundo Mercado on 02-12-2023 Erythrocyte distribution width (RBC) [Entitic vol] 43.2 fL 35.1-43.9 [facility] Erythrocyte distribution width (RBC) [Ratio] 11.9 % 11.6-14.6 [facility] Immature granulocytes/100 WBC (Bld) 0.400 % 0.0-0.9 [facility] Comment on above: IG% - Immature Granu locytes (promyelocytes, myelocytes and metamyelocytes) > 1% indicates that a LEFT SHIFT is Present. MCH (RBC) [Entitic mass] 33.5 pg 27.0-32.0 [facility] Nucleated RBC/100 WBC (Bld) [Ratio] 0 % 0-5 [facility] MCHC Auto (RBC) [Mass/Vol]Or dered By: Raymundo Mercado on 02-12-2023 MCHC (RBC) [Mass/Vol] 33.9 g/dL 32-36 [facility] Mucus LM Ql (Urine sed)Order ed By: Raymundo Mercado on 02-12-2023 Mucus Ql (Urine sed) 0 SEEN /hpf [facility] Nitrite Test strip Ql (U)Ord ered By: Raymundo Mercado on 02-12-2023 Nitrite Ql (U) Negative Negative [facility] No Panel InformationOrdered By: Raymundo Mercado on 02-12-2023 Estimated Creatinine Clearance Calc 38.35 ml/min [facility] Estimated GFR (MDRD) Amer 162 mL/min >60 [facility] Comment on above: GFR Calc Estimated GFR (MDRD) Non-Af Amer 134 mL/min >60 [facility] Comment on above: Non- GFR Calc Platelets bldOrdered By: Kim Mercado on 02-12-2023 Platelets (Bld) [#/Vol] 321 10*3/uL 150-450 [facility] Protein Test strip Ql (U)Ord ered By: Raymundo Mercado on 02-12-2023 Protein Ql (U) 15 mg/dl Negative [facility] Serum or plasma calcium alonso urement (mass/volume)Ordered By: Raymundo Mercado on 02-12-2023 Calcium [Mass/Vol] 9.1 mg/dL 8.5-10.1 [facility] Serum or plasma creatinine m easurement (mass/volume)Ordered By: Raymundo Mercado on 02-12-2023 Creatinine [Mass/Vol] 0.49 mg/dL 0.55-1.02 [facility] Comment on above: The validity of the calculated GFR & GFRAA in patients over 70 years has not been determined. Clinical correlation is essential. Serum or plasma urea nitroge n measurement (mass/volume)Ordered By: Raymundo Mercado on 02-12-2023 Urea nitrogen [Mass/Vol] 6 mg/dL 7-18 [facility] Squamous epithelial cells de tection in urine sediment by light microscopyOrdered By: Raymundo Mercado on 02-12-2023 Epithelial cells.squamous LM Ql (Urine sed) 0 SEEN /hpf 5-10 [facility] Thin prep Papanicolaou smear with manual screeningOrdered By: Raymundo Mercado on 02-12-2023 Thin prep Papanicolaou smear with manual screening 8 5-15 [facility] Urine blood detectionOrdered By: Raymundo Mercado on 02-12-2023 RBC Ql (U) 25 /ul Negative [facility] RBC Ql (U) 0 SEEN /hpf 0-5 [facility] Urine clarityOrdered By: Kim Mercado on 02-12-2023 Clarity (U) Clear Clear [facility] Urine color determinationOrd ered By: Raymundo Mercado on 02-12-2023 Color (U) Yellow Yellow [facility] Urine glucose detectionOrder ed By: Raymundo Mercado on 02-12-2023 Glucose Ql (U) Normal mg/dl Normal [facility] Urine leukocyte esterase det ection by dipstickOrdered By: Raymundo Mercado on 02-12-2023 Leukocyte esterase Test strip Ql (U) 25 /ul Negative [facility] Urine pHOrdered By: Raymundo segal on 02-12-2023 pH (U) 7.0 [pH] 5.0 - 8.0 [facility] Urine sediment bacteria coun t by microscopy (number/high power field)Ordered By: Raymundo Mercado on 02-12-2023 Bacteria LM.HPF (Urine sed) [#/Area] 0 /[HPF] None Seen [facility] Urine specific gravity measu rementOrdered By: Raymundo Mercado on 02-12-2023 Specific gravity (U) [Rel density] 1.010 1.002-1.030 [facility] Urobilinogen Auto test strip Ql (U)Ordered By: Raymundo Mercado on 02-12-2023 Urobilinogen Ql (U) Normal mg/dl Normal [facility] XR Wrist - right 4 Viewson 0 12-18-2022 IMPRESSION: No radiographic evidence of acute osseous injury Community Health Educator: [facility] Transcribe Date/Time: Dec 18 2022 10:00A Dictated by : KATIE WATERS MD This examination was interpreted and the report reviewed and electronically signed by: KATIE WATERS MD on Dec 18 2022 10:02AM [facility] DIVISION OF RADIOLOGY * * *Final Report* * * DATE OF EXAM: Dec 18 2022 9:54AM WOX 5273 - XR WRIST 4V PA/LAT/OBL/SCAPH RT / PROCEDURE REASON: Pain * * * * Physician Interpretation * * * * TITLE: XR WRIST 4V PA/LAT/OBL/SCAPH RT CLINICAL INDICATION: Pain TECHNIQUE: 4 view radiographic study of the right wrist COMPARISON: None FINDINGS: No acute fracture or dislocation identified. No radiopaque foreign body. DIVISION OF RADIOLOGY Provider, [facility] - 12/18/2022 * * *Final Report* * * DATE OF EXAM: Dec 18 2022 9:54AM WOX 5273 - XR WRIST 4V PA/LAT/OBL/SCAPH RT / PROCEDURE REASON: Pain * * * * Physician Interpretation * * * * TITLE: XR WRIST 4V PA/LAT/OBL/SCAPH RT CLINICAL INDICATION: Pain TECHNIQUE: 4 view radiographic study of the right wrist COMPARISON: None FINDINGS: No acute fracture or dislocation identified. No radiopaque foreign body. IMPRESSION IMPRESSION: No radiographic evidence of acute osseous injury Community Health Educator: [facility] Transcribe Date/Time: Dec 18 2022 10:00A Dictated by : KATIE WATERS MD This examination was interpreted and the report reviewed and electronically signed by: KATIE WATERS MD on Dec 18 2022 10:02AM EST [facility] Radiology Study observation (narrative) [facility] XR Wrist - right 4 ViewsOrde red By: [facility] Provider on 12-18-[address] [facility] [address] CHEST WO IVCONon 12-04-19 [facility] US ABDOMEN COMPLETEon 2022 [facility] DXA-AXIAL SKELETONon 023 [facility] MARCIANO SCREENINGon 07-31-2022 [facility] ECG COMPLETEon 07-09-2022 Atrial Rate 82 BPM [facility] Calculated P [place] 41 degrees [facility] Calculated R [place] 48 degrees [facility] Calculated T [place] 37 degrees [facility] P-R Interval 124 ms [facility] QRS Duration 68 ms [facility] QT Interval 338 ms [facility] QTC Calculation (Bazett) 394 ms [facility] Ventricular Rate 82 BPM [facility] XR CHEST 2V FRONTAL/LATon [facility] XR Chest PA and Lateralon IMPRESSION: Stable chronic changes. No superimposed acute cardiopulmonary process. Community Health Educator: [facility] Transcribe Date/Time: Jul 09 2022 3:46P Dictated by : KASEY BLOUNT MD This examination was interpreted and the report reviewed and electronically signed by: KASEY BLOUNT MD on Jul 09 2022 3:48PM [facility] DIVISION OF RADIOLOGY * * *Final Report* * * DATE OF EXAM: Jul 09 2022 11:45AM WOX 5291 - XR CHEST 2V FRONTAL/LAT / PROCEDURE REASON: Feeling of chest tightness * * * * Physician Interpretation * * * * EXAMINATION: CHEST RADIOGRAPH (2 VIEW FRONTAL & LATERAL) CLINICAL HISTORY: Feeling of chest tightness MQ: XC2_6 EXAM DATE/TIME: 07/09/2022 11:45 AM COMPARISON: Comparison is made to prior study dated 27 December 2020 RESULT: Lines, tubes, and devices: None. Lungs and pleura: Chronic interstitial lung changes with lingular and bibasilar fibrotic scarring is stable. There is no focal consolidation or acute pleural process. There is no vascular redistribution to suggest pulmonary edema. Cardiomediastinal silhouette: Unchanged cardiomediastinal silhouette. Bones/Soft Tissues: The bony structures are osteopenic with degenerative change. No acute or bony destructive process noted. DIVISION OF RADIOLOGY Provider, [facility] - 07/09/2022 * * *Final Report* * * DATE OF EXAM: Jul 09 2022 11:45AM WOX 5291 - XR CHEST 2V FRONTAL/LAT / PROCEDURE REASON: Feeling of chest tightness * * * * Physician Interpretation * * * * EXAMINATION: CHEST RADIOGRAPH (2 VIEW FRONTAL & LATERAL) CLINICAL HISTORY: Feeling of chest tightness MQ: XC2_6 EXAM DATE/TIME: 07/09/2022 11:45 AM COMPARISON: Comparison is made to prior study dated 27 December 2020 RESULT: Lines, tubes, and devices: None. Lungs and pleura: Chronic interstitial lung changes with lingular and bibasilar fibrotic scarring is stable. There is no focal consolidation or acute pleural process. There is no vascular redistribution to suggest pulmonary edema. Cardiomediastinal silhouette: Unchanged cardiomediastinal silhouette. Bones/Soft Tissues: The bony structures are osteopenic with degenerative change. No acute or bony destructive process noted. IMPRESSION IMPRESSION: Stable chronic changes. No superimposed acute cardiopulmonary process. Community Health Educator: LEONARDO Transcribe Date/Time: Jul 09 2022 3:46P Dictated by : KASEY BLOUNT MD This examination was interpreted and the report reviewed and electronically signed by: KASEY BLOUNT MD on Jul 09 2022 3:48PM EST [facility] Radiology Study observation (narrative) [facility] XR Chest PA and LateralOrder ed By: [facility] Provider on 07-09-2022 [facility] XR Abdomen Supine and Uprigh ton 03-23-2022 IMPRESSION: Nonobstructive bowel gas pattern with fecal retention. Community Health Educator: [facility] Transcribe Date/Time: Mar 23 2022 10:50A Dictated by : KASEY BLOUNT MD This examination was interpreted and the report reviewed and electronically signed by: KASEY BLOUNT MD on Mar 23 2022 5:53PM EST [facility]_DO_NOT _USE_DIVIS ION OF RADIOLOGY * * *Final Report* * * DATE OF EXAM: Mar 23 2022 8:49AM WOX 5289 - XR ABDOMEN 1V SUPINE / PROCEDURE REASON: Partial intestinal obstruction, unspecified cause (HCC) * * * * Physician Interpretation * * * * EXAMINATION: XR ABDOMEN 1V SUPINE HISTORY: Partial bowel obstruction follow up. Bloating and pain. Partial intestinal obstruction, unspecified cause (HCC). TECHNIQUE: XR ABDOMEN 1V SUPINE Laterality: NOT APPLICABLE Number of different views (projections): 1 M: XB_1 COMPARISON: There are no prior relevant plain film abdominal examinations available for comparison within the [facility]. Comparison is made to AP view of a lumbar spine series from 16 March 2020 RESULT: Supine views of the abdomen demonstrate a nonobstructive bowel gas pattern with diffuse prominent fecal retention. Ovoid 1-to 2 centimeter density left colon likely ingested material. Gas-filled undistended large and soft small bowel noted without apparent wall thickening. Gas and fecal residue obscure the renal shadows but there are no obvious pathologic calculi within this limitation. The soft tissues and bony structures are unremarkable. [facility]_DO_NOT _USE_DIVIS ION OF RADIOLOGY Provider, [facility] - 03/23/2022 * * *Final Report* * * DATE OF EXAM: Mar 23 2022 8:49AM WOX 5289 - XR ABDOMEN 1V SUPINE / PROCEDURE REASON: Partial intestinal obstruction, unspecified cause (HCC) * * * * Physician Interpretation * * * * EXAMINATION: XR ABDOMEN 1V SUPINE HISTORY: Partial bowel obstruction follow up. Bloating and pain. Partial intestinal obstruction, unspecified cause (HCC). TECHNIQUE: XR ABDOMEN 1V SUPINE Laterality: NOT APPLICABLE Number of different views (projections): 1 M: XB_1 COMPARISON: There are no prior relevant plain film abdominal examinations available for comparison within the [facility]. Comparison is made to AP view of a lumbar spine series from 16 March 2020 RESULT: Supine views of the abdomen demonstrate a nonobstructive bowel gas pattern with diffuse prominent fecal retention. Ovoid 1-to 2 centimeter density left colon likely ingested material. Gas-filled undistended large and soft small bowel noted without apparent wall thickening. Gas and fecal residue obscure the renal shadows but there are no obvious pathologic calculi within this limitation. The soft tissues and bony structures are unremarkable. IMPRESSION IMPRESSION: Nonobstructive bowel gas pattern with fecal retention. Community Health Educator: LEONARDO Transcribe Date/Time: Mar 23 2022 10:50A Dictated by : KASEY BLOUNT MD This examination was interpreted and the report reviewed and electronically signed by: KASEY BLOUNT MD on Mar 23 2022 5:53PM EST [facility] Radiology Study observation (narrative) [facility] XR Abdomen Supine and Uprigh tOrdered By: [facility] Provider on 03-23-2022 [facility] Absolute lymphocyte counton 03-18-2022 Lymphocytes Auto (Unsp spec) [#/Vol] 1.30 10*3/uL 0.83-4.51 [facility] Work Phone: [phone] Basophil percentageon 2021 Basophils/100 WBC (Bld) 0.5 % 0-1 [facility] Work Phone: [phone] Bilirubin [Mass/Vol] 0.40 mg/dL 0.20-1.00 [facility] [place] Work Phone: [phone] Comment on above: For patients on eltr ombopag therapy, use of Dimension [place] TBIL is not recommended. Chloride [Moles/Vol] 109 mmol/L 98-107 [facility] [place] Work Phone: Eosinophils/100 WBC (Bld) 1.5 % 0-5 [facility] Work Phone: [phone] Glucose [Mass/Vol] 109 mg/dL 74-106 [facility] Work Phone: [phone] Comment on above: Fasting Glucose resu lt from 100 to 125 mg/dL suggests IMPAIRED HOMEOSTASIS per A.D.A. criteria. Neutrophils (Bld) [#/Vol] 8.4 10*3/uL 2.0-7.7 [facility] Work Phone: [phone] Neutrophils/100 WBC (Bld) 75.8 % 47-70 [facility] Work Phone: [phone] Potassium [Moles/Vol] 3.8 mmol/L 3.5-5.1 [facility] Work Phone: [phone] Protein [Mass/Vol] 6.4 g/dL 6.4-8.2 [facility] Work Phone: Sodium [Moles/Vol] 140 mmol/L 136-145 [facility] Work Phone: WBC (Bld) [#/Vol] 11.1 10*3/uL 4.4-11.0 [facility] Work Phone: Blood erythrocytes count (nu mber/volume)on 03-18-2022 RBC (Bld) [#/Vol] 4.28 10*6/uL 4.2-5.4 [facility] Work Phone: [phone] Blood hemoglobin measurement (mass/volume)on 03-18-2022 Hemoglobin (Bld) [Mass/Vol] 14.6 g/dL 12.0-15.0 [facility] Work Phone: Blood lymphocytes/100 leukoc yteson 03-18-2022 Lymphocytes/100 WBC (Bld) 11.7 % 19-41 [facility] Work Phone: Blood monocytes/100 leukocyt eson 03-18-2022 Monocytes/100 WBC (Bld) 10.2 % 0-10 [facility] Work Phone: Blood platelet mean volumeon 03-18-2022 Platelet mean volume (Bld) [Entitic vol] 8.8 fL 6.2-12.0 [facility] Work Phone: [phone] Determination of erythrocyte mean corpuscular volume (MCV)on 03-18-2022 MCV (RBC) [Entitic vol] 102.1 fL 81-99 [facility] Work Phone: Hematocrit Auto (Bld) [Volum e fraction]on 03-18-2022 Hematocrit (Bld) [Volume fraction] 43.7 % 37-47 [facility] Work Phone: [phone] Laboratory - Chemistry and C hemistry - challengeon 03-18-2022 ALP [Catalytic activity/Vol] 91 U/L 45-117 [facility] Work Phone: ALT [Catalytic activity/Vol] 15 U/L 13-56 [facility] Work Phone: CO2 [Moles/Vol] 27.0 mmol/L 21.0-32.0 [facility] Work Phone: Globulin (S) [Mass/Vol] 3.4 g/dL 2.2-4.2 [facility] Work Phone: Urea nitrogen/Creatinine [Mass ratio] 11.9 mg/mg 10-20 [facility] Work Phone: Laboratory - Hematology and Cell countson 03-18-2022 Erythrocyte distribution width (RBC) [Entitic vol] 47.5 fL 35.1-43.9 [facility] Work Phone: Erythrocyte distribution width (RBC) [Ratio] 12.5 % 11.6-14.6 [facility] Work Phone: Immature granulocytes/100 WBC (Bld) 0.300 % 0.0-0.9 [facility] Work Phone: Comment on above: IG% - Immature Granu locytes (promyelocytes, myelocytes and metamyelocytes) > 1% indicates that a LEFT SHIFT is Present. MCH (RBC) [Entitic mass] 34.1 pg 27.0-32.0 [facility] Work Phone: Nucleated RBC/100 WBC (Bld) [Ratio] 0 % 0-5 [facility] Work Phone: MCHC Auto (RBC) [Mass/Vol]on 03-18-2022 MCHC (RBC) [Mass/Vol] 33.4 g/dL 32-36 [facility] Work Phone: No Panel Informationon 03-18 Estimated Creatinine Clearance Calc 36.87 ml/min [facility] Work Phone: Estimated GFR (MDRD) Amer 132 mL/min >60 [facility] Work Phone: Comment on above: GFR Calc Estimated GFR (MDRD) Non-Af Amer 109 mL/min >60 [facility] Work Phone: Comment on above: Non- GFR Calc Platelets bldon 03-18-2022 Platelets (Bld) [#/Vol] 277 10*3/uL 150-450 [facility] Work Phone: [phone] Serum or plasma albumin alonso urement (mass/volume)on 03-18-2022 Albumin [Mass/Vol] 3.0 g/dL 3.2-5.0 [facility] Work Phone: [phone] Serum or plasma albumin/glob ulin mass ratioon 03-18-2022 Albumin/Globulin [Mass ratio] 0.9 {ratio} 0.9-2.4 [facility] Work Phone: [phone] Serum or plasma calcium alonso urement (mass/volume)on 03-18-2022 Calcium [Mass/Vol] 7.7 mg/dL 8.5-10.1 [facility] Work Phone: [phone] Serum or plasma creatinine m easurement (mass/volume)on 03-18-2022 Creatinine [Mass/Vol] 0.59 mg/dL 0.55-1.02 [facility] Work Phone: [phone] Comment on above: The validity of the calculated GFR & GFRAA in patients over 70 years has not been determined. Clinical correlation is essential. Serum or plasma urea nitroge n measurement (mass/volume)on 03-18-2022 Urea nitrogen [Mass/Vol] 7 mg/dL 7-18 [facility] Work Phone: [phone] Thin prep Papanicolaou smear with manual screeningon 03-18-2022 Thin prep Papanicolaou smear with manual screening 16 U/L 15-37 [facility] Work Phone: Thin prep Papanicolaou smear with manual screening 4 5-15 [facility] Work Phone: [phone] Absolute lymphocyte counton 03-17-2022 Lymphocytes Auto (Unsp spec) [#/Vol] 1.49 10*3/uL 0.83-4.51 [facility] Work Phone: [phone] Basophil percentageon 2021 Basophil percentage 2.9 mg/dL 2.5-4.9 [facility] Work Phone: Basophils/100 WBC (Bld) 0.6 % 0-1 [facility] Work Phone: Bilirubin [Mass/Vol] 0.40 mg/dL 0.20-1.00 [facility] [place] Work Phone: Comment on above: For patients on eltr ombopag therapy, use of Dimension [place] TBIL is not recommended. Chloride [Moles/Vol] 104 mmol/L 98-107 [facility] [place] Work Phone: Eosinophils/100 WBC (Bld) 1.7 % 0-5 [facility] Work Phone: Glucose [Mass/Vol] 128 mg/dL 74-106 [facility] Work Phone: [phone] Comment on above: Fasting Glucose resu lt greater than or equal to 126 mg/dL suggests DIABETES MELLITUS per A.D.A. criteria. Lactate [Moles/Vol] 0.6 mmol/L 0.4-2.0 [facility] Work Phone: Neutrophils (Bld) [#/Vol] 8.7 10*3/uL 2.0-7.7 [facility] Work Phone: Neutrophils/100 WBC (Bld) 75.8 % 47-70 [facility] Work Phone: Potassium [Moles/Vol] 3.8 mmol/L 3.5-5.1 [facility] Work Phone: Protein [Mass/Vol] 7.3 g/dL 6.4-8.2 [facility] Work Phone: Sodium [Moles/Vol] 138 mmol/L 136-145 [facility] Work Phone: WBC (Bld) [#/Vol] 11.5 10*3/uL 4.4-11.0 [facility] Work Phone: [phone] Bilirubin Test strip Ql (U)o n 03-17-2022 Bilirubin Ql (U) Negative Negative [facility] Work Phone: Blood erythrocytes count (nu mber/volume)on 03-17-2022 RBC (Bld) [#/Vol] 4.68 10*6/uL 4.2-5.4 [facility] Work Phone: [phone] Blood hemoglobin measurement (mass/volume)on 03-17-2022 Hemoglobin (Bld) [Mass/Vol] 15.9 g/dL 12.0-15.0 [facility] Work Phone: Blood lymphocytes/100 leukoc yteson 03-17-2022 Lymphocytes/100 WBC (Bld) 12.9 % 19-41 [facility] Work Phone: Blood monocytes/100 leukocyt eson 03-17-2022 Monocytes/100 WBC (Bld) 8.7 % 0-10 [facility] Work Phone: Blood platelet mean volumeon 03-17-2022 Platelet mean volume (Bld) [Entitic vol] 9.0 fL 6.2-12.0 [facility] Work Phone: [phone] Determination of erythrocyte mean corpuscular volume (MCV)on 03-17-2022 MCV (RBC) [Entitic vol] 100.9 fL 81-99 [facility] Work Phone: Hematocrit Auto (Bld) [Volum e fraction]on 03-17-2022 Hematocrit (Bld) [Volume fraction] 47.2 % 37-47 [facility] Work Phone: [phone] Ketones Test strip Ql (U)on 03-17-2022 Ketones Ql (U) 5 mg/dl Negative [facility] Work Phone: [phone] Laboratory - Chemistry and C hemistry - challengeon 03-17-2022 ALP [Catalytic activity/Vol] 101 U/L 45-117 [facility] Work Phone: [phone] ALT [Catalytic activity/Vol] 19 U/L 13-56 [facility] Work Phone: [phone] CO2 [Moles/Vol] 28.0 mmol/L 21.0-32.0 [facility] Work Phone: [phone] Globulin (S) [Mass/Vol] 3.7 g/dL 2.2-4.2 [facility] Work Phone: [phone] Lipase [Catalytic activity/Vol] 212 U/L 73-393 [facility] Work Phone: [phone] Magnesium [Mass/Vol] 2.2 mg/dL 1.6-2.6 [facility] [place] Work Phone: Comment on above: Moderate Hemolysis, Result may be falsely increased. Urea nitrogen/Creatinine [Mass ratio] 16.2 mg/mg 10-20 [facility] Work Phone: Laboratory - Hematology and Cell countson 03-17-2022 Erythrocyte distribution width (RBC) [Entitic vol] 46.3 fL 35.1-43.9 [facility] Work Phone: Erythrocyte distribution width (RBC) [Ratio] 12.3 % 11.6-14.6 [facility] Work Phone: Immature granulocytes/100 WBC (Bld) 0.300 % 0.0-0.9 [facility] Work Phone: Comment on above: IG% - Immature Granu locytes (promyelocytes, myelocytes and metamyelocytes) > 1% indicates that a LEFT SHIFT is Present. MCH (RBC) [Entitic mass] 34.0 pg 27.0-32.0 [facility] Work Phone: Nucleated RBC/100 WBC (Bld) [Ratio] 0 % 0-5 [facility] Work Phone: MCHC Auto (RBC) [Mass/Vol]on 03-17-2022 MCHC (RBC) [Mass/Vol] 33.7 g/dL 32-36 [facility] Work Phone: Nitrite Test strip Ql (U)on 03-17-2022 Nitrite Ql (U) Negative Negative [facility] Work Phone: No Panel Informationon 03-17 Estimated Creatinine Clearance Calc 37.64 ml/min [facility] Work Phone: Estimated GFR (MDRD) Amer 101 mL/min >60 [facility] Work Phone: Comment on above: GFR Calc Estimated GFR (MDRD) Non-Af Amer 83 mL/min >60 [facility] Work Phone: Comment on above: Non- GFR Calc Platelets bldon 03-17-2022 Platelets (Bld) [#/Vol] 331 10*3/uL 150-450 [facility] Work Phone: Protein Test strip Ql (U)on 03-17-2022 Protein Ql (U) Negative Negative [facility] Work Phone: Serum or plasma albumin alonso urement (mass/volume)on 03-17-2022 Albumin [Mass/Vol] 3.6 g/dL 3.2-5.0 [facility] Work Phone: Serum or plasma albumin/glob ulin mass ratioon 03-17-2022 Albumin/Globulin [Mass ratio] 1.0 {ratio} 0.9-2.4 [facility] Work Phone: Serum or plasma calcium alonso urement (mass/volume)on 03-17-2022 Calcium [Mass/Vol] 8.9 mg/dL 8.5-10.1 [facility] Work Phone: Serum or plasma creatinine m easurement (mass/volume)on 03-17-2022 Creatinine [Mass/Vol] 0.74 mg/dL 0.55-1.02 [facility] Work Phone: Comment on above: The validity of the calculated GFR & GFRAA in patients over 70 years has not been determined. Clinical correlation is essential. Serum or plasma urea nitroge n measurement (mass/volume)on 03-17-2022 Urea nitrogen [Mass/Vol] 12 mg/dL 7-18 [facility] Work Phone: Thin prep Papanicolaou smear with manual screeningon 03-17-2022 Thin prep Papanicolaou smear with manual screening 17 U/L 15-37 [facility] Work Phone: Thin prep Papanicolaou smear with manual screening 6 5-15 [facility] Work Phone: Urine blood detectionon 03-02 RBC Ql (U) 25 /ul Negative [facility] Work Phone: Urine clarityon 03-17-2022 Clarity (U) Clear Clear [facility] Work Phone: Urine color determinationon 03-17-2022 Color (U) Yellow Yellow [facility] Work Phone: Urine glucose detectionon Glucose Ql (U) Normal mg/dl Normal [facility] Work Phone: Urine leukocyte esterase det ection by dipstickon 03-17-2022 Leukocyte esterase Test strip Ql (U) Negative Negative [facility] Work Phone: Urine pHon 03-17-2022 pH (U) 6.0 [pH] 5.0 - 8.0 [facility] Work Phone: Urine specific gravity measu rementon 03-17-2022 Specific gravity (U) [Rel density] 1.010 1.002-1.030 [facility] Work Phone: Urobilinogen Auto test strip Ql (U)on 03-17-2022 Urobilinogen Ql (U) Normal mg/dl Normal [facility] Work Phone: XR SACRUM/COCCYX 3V AP/LATon 03-14-2022 [facility] XR Sacrum and Coccyx 3 Views on 03-14-2022 IMPRESSION: No acute radiographic abnormalities seen in the sacrum/coccyx. Community Health Educator: LEONARDO Transcribe Date/Time: Mar 14 2022 11:12A Dictated by : LAURIE KAYE MD This examination was interpreted and the report reviewed and electronically signed by: LAURIE KAYE MD on Mar 14 2022 11:14AM EST Andra[facility]_DO_NOT _USE_DIVIS ION OF RADIOLOGY * * *Final Report* * * DATE OF EXAM: Mar 14 2022 11:02AM WOX 5246 - XR SACRUM/COCCYX 3V AP/LAT / PROCEDURE REASON: Coccyx pain * * * * Physician Interpretation * * * * EXAM TITLE: XR SACRUM/COCCYX 3V AP/LAT EXAM DATE/TIME: 03/14/2022 11:02 AM COMPARISON: None. CLINICAL INDICATION/HISTORY: Coccyx pain. TECHNIQUE: AP and lateral views of the sacrum/coccyx are presented. FINDINGS: No acute fractures demonstrated in the sacrum. No subluxation of the coccyx. The other pelvic bones are intact. There are degenerative changes in the spine with multilevel disc space narrowing. Status post L4 and L5 laminectomy. ZZZ_DO_NOT _USE_DIVIS ION OF RADIOLOGY Provider, Elder Bee [facility] - 03/14/2022 * * *Final Report* * * DATE OF EXAM: Mar 14 2022 11:02AM WOX 5246 - XR SACRUM/COCCYX 3V AP/LAT / PROCEDURE REASON: Coccyx pain * * * * Physician Interpretation * * * * EXAM TITLE: XR SACRUM/COCCYX 3V AP/LAT EXAM DATE/TIME: 03/14/2022 11:02 AM COMPARISON: None. CLINICAL INDICATION/HISTORY: Coccyx pain. TECHNIQUE: AP and lateral views of the sacrum/coccyx are presented. FINDINGS: No acute fractures demonstrated in the sacrum. No subluxation of the coccyx. The other pelvic bones are intact. There are degenerative changes in the spine with multilevel disc space narrowing. Status post L4 and L5 laminectomy. IMPRESSION IMPRESSION: No acute radiographic abnormalities seen in the sacrum/coccyx. Community Health Educator: LEONARDO Transcribe Date/Time: Mar 14 2022 11:12A Dictated by : LAURIE KAYE MD This examination was interpreted and the report reviewed and electronically signed by: LAURIE KAYE MD on Mar 14 2022 11:14AM EST [facility] Radiology Study observation (narrative) [facility] XR Sacrum and Coccyx 3 Views Ordered By: Ccf Provider on 03-14-2022 [facility] XR Chest PA and Lateralon IMPRESSION: No acute radiographic abnormality. Community Health Educator: LEONARDO Transcribe Date/Time: Dec 27 2020 10:19A Dictated by : CECILIO GAVIRIA MD This examination was interpreted and the report reviewed and electronically signed by: CECILIO GAVIRIA MD on Dec 27 2020 10:20AM [facility] DIVISION OF RADIOLOGY * * *Final Report* * * DATE OF EXAM: Dec 27 2020 10:17AM WOX 5291 - XR CHEST 2V FRONTAL/LAT / PROCEDURE REASON: Suspected COVID-19 virus infection * * * * Physician Interpretation * * * * EXAMINATION: CHEST RADIOGRAPH (2 VIEW FRONTAL & LATERAL) CLINICAL HISTORY: Suspected COVID-19 virus infection MQ: XC2_6 EXAM DATE/TIME: 12/27/2020 10:17 AM COMPARISON: 07/23/2020 RESULT: Lines, tubes, and devices: None. Lungs and pleura: No consolidation. No lung mass. No pleural effusion. No pneumothorax. Cardiomediastinal silhouette: Normal cardiomediastinal silhouette. Bones and soft tissues: Stable scoliosis. Degenerative change. Osteopenia DIVISION OF RADIOLOGY Provider, [facility] - 12/27/2020 * * *Final Report* * * DATE OF EXAM: Dec 27 2020 10:17AM WOX 5291 - XR CHEST 2V FRONTAL/LAT / PROCEDURE REASON: Suspected COVID-19 virus infection * * * * Physician Interpretation * * * * EXAMINATION: CHEST RADIOGRAPH (2 VIEW FRONTAL & LATERAL) CLINICAL HISTORY: Suspected COVID-19 virus infection MQ: XC2_6 EXAM DATE/TIME: 12/27/2020 10:17 AM COMPARISON: 07/23/2020 RESULT: Lines, tubes, and devices: None. Lungs and pleura: No consolidation. No lung mass. No pleural effusion. No pneumothorax. Cardiomediastinal silhouette: Normal cardiomediastinal silhouette. Bones and soft tissues: Stable scoliosis. Degenerative change. Osteopenia IMPRESSION IMPRESSION: No acute radiographic abnormality. Community Health Educator: PSCB Transcribe Date/Time: Dec 27 2020 10:19A Dictated by : CECILIO GAVIRIA MD This examination was interpreted and the report reviewed and electronically signed by: CECILIO GAVIRIA MD on Dec 27 2020 10:20AM [facility] Radiology Study observation (narrative) [facility] XR Chest PA and LateralOrder ed By: Ccf Provider on 12-27-2020 [facility] XR Pelvis and Hip - left AP and Lateral frogon 04-17-2021 IMPRESSION: No acute findings radiographically. Postoperative and degenerative changes lower lumbar spine. Community Health Educator: LEONARDO Transcribe Date/Time: Dec 17 2020 10:28A Dictated by : TOI MACK MD This examination was interpreted and the report reviewed and electronically signed by: TOI MACK MD on Dec 17 2020 10:33AM [facility] DIVISION OF RADIOLOGY * * *Final Report* * * DATE OF EXAM: Dec 17 2020 10:18AM WOX 5351 - XR HIP 3V PELV+ AP/LAT LT / PROCEDURE REASON: Hip pain, acute, left * * * * Physician Interpretation * * * * EXAM TITLE: LEFT XR HIP 3V PELV+ AP/LAT LT DATE: 12/17/2020 COMPARISON: None. CLINICAL INDICATION/HISTORY: Left hip pain. TECHNIQUE: AP pelvis in addition to AP and frog leg lateral views of the left hip. RESULT: No fractures or subluxations are noted. No bony erosions are seen. The joint spaces are well preserved. There is no evidence of joint effusion. The mineralization of the bones is normal. Advanced spondylosis within the visualized lower lumbar spine with lower lumbar decompressive laminectomies. DIVISION OF RADIOLOGY Provider, [facility] - 12/17/2020 * * *Final Report* * * DATE OF EXAM: Dec 17 2020 10:18AM WOX 5351 - XR HIP 3V PELV+ AP/LAT LT / PROCEDURE REASON: Hip pain, acute, left * * * * Physician Interpretation * * * * EXAM TITLE: LEFT XR HIP 3V PELV+ AP/LAT LT DATE: 12/17/2020 COMPARISON: None. CLINICAL INDICATION/HISTORY: Left hip pain. TECHNIQUE: AP pelvis in addition to AP and frog leg lateral views of the left hip. RESULT: No fractures or subluxations are noted. No bony erosions are seen. The joint spaces are well preserved. There is no evidence of joint effusion. The mineralization of the bones is normal. Advanced spondylosis within the visualized lower lumbar spine with lower lumbar decompressive laminectomies. IMPRESSION IMPRESSION: No acute findings radiographically. Postoperative and degenerative changes lower lumbar spine. Community Health Educator: [facility] Transcribe Date/Time: Dec 17 2020 10:28A Dictated by : TOI MACK MD This examination was interpreted and the report reviewed and electronically signed by: TOI MACK MD on Dec 17 2020 10:33AM EST [facility] Radiology Study observation (narrative) [facility] XR Pelvis and Hip - left AP and Lateral frogOrdered By: Ccf Provider on 12-17-2020 [facility] XR Chest PA and Lateralon IMPRESSION: no active cardiopulmonary disease Community Health Educator: PSCB Transcribe Date/Time: Jul 23 2020 9:03P Dictated by : TOÑO GARCIA MD This examination was interpreted and the report reviewed and electronically signed by: TOÑO GARCIA MD on Jul 23 2020 9:04PM EST DIVISION OF RADIOLOGY * * *Final Report* * * DATE OF EXAM: Jul 23 2020 10:02AM WOX 5291 - XR CHEST 2V FRONTAL/LAT / PROCEDURE REASON: multiple diagnoses * * * * Physician Interpretation * * * * XR CHEST 2V FRONTAL/LAT INDICATION: Pneumonia due to COVID-19 virus Pneumonia due to COVID-19 virus 65 years/Female RESULT: COMPARISON: 0 09/26/2017 The heart size is normal. Some lung scarring. The lung keyes are clear of infiltrate. No mediastinal or hilar adenopathy. The costophrenic angles are clear. Degenerative spine changes. Scoliosis noted convex to the right DIVISION OF RADIOLOGY Provider, Elder Bee [facility] - 07/23/2020 * * *Final Report* * * DATE OF EXAM: Jul 23 2020 10:02AM WOX 5291 - XR CHEST 2V FRONTAL/LAT / PROCEDURE REASON: multiple diagnoses * * * * Physician Interpretation * * * * XR CHEST 2V FRONTAL/LAT INDICATION: Pneumonia due to COVID-19 virus Pneumonia due to COVID-19 virus 65 years/Female RESULT: COMPARISON: 0 09/26/2017 The heart size is normal. Some lung scarring. The lung keyes are clear of infiltrate. No mediastinal or hilar adenopathy. The costophrenic angles are clear. Degenerative spine changes. Scoliosis noted convex to the right IMPRESSION IMPRESSION: no active cardiopulmonary disease Community Health Educator: PSCB Transcribe Date/Time: Jul 23 2020 9:03P Dictated by : TOÑO GARCIA MD This examination was interpreted and the report reviewed and electronically signed by: TOÑO GARCIA MD on Jul 23 2020 9:04PM EST [facility] Radiology Study observation (narrative) [facility] XR Chest PA and LateralOrder ed By: [facility]cf Provider on 07-23-2020 [facility] Vital Signs Date Time Vital Sign Value Performing Clinician Facility 03-15-2025 09:52-0400 Body temperature 98.71 [degF] Shanita Green PA-C Work Phone: [facility] 03-15-2025 09:52-0400 Diastolic blood pressure 80 mm[Hg] hSanita Green PA-C Work Phone: [facility] 03-15-2025 09:52-0400 Heart rate 86 /min Shanita Green PA-C Work Phone: [facility] 03-15-2025 09:52-0400 Respiratory rate 16 /min Shanita Green PA-C Work Phone: [facility] 03-15-2025 09:52-0400 SaO2% (BldA) [Mass fraction] 96 % Shanita CORREA-C Work Phone: [facility] 03-15-2025 09:52-0400 Systolic blood pressure 110 mm[Hg] Shanita CORREA-C Work Phone: [facility] 02-09-2025 07:42-0400 Body height 144.[address] Rito Camp MD Work Phone: [facility] 02-09-2025 07:42-0400 Body mass index (BMI) [Ratio] 19 kg/m2 Dr. Rito Camp MD Work Phone: [facility] 02-09-2025 07:42-0400 Body temperature 96.4 [degF] Dr. Rito Camp MD Work Phone: [facility] 02-09-2025 07:42-0400 Body weight 39.[address] Rito Cmap MD Work Phone: [facility] 02-09-2025 07:42-0400 Diastolic blood pressure 88 mm[Hg] Dr. Riot Camp MD Work Phone: [facility] 02-09-2025 07:42-0400 Heart rate 83 /min Dr. Rito Camp MD Work Phone: [facility] 02-09-2025 07:42-0400 Respiratory rate 16 /min Dr. Rito Camp MD Work Phone: [facility] 02-09-2025 07:42-0400 SaO2% (BldA) [Mass fraction] 95 % Dr. Rito Camp MD Work Phone: [facility] 02-09-2025 07:42-0400 Systolic blood pressure 132 mm[Hg] Dr. Rito Camp MD Work Phone: [facility] 01-05-2025 09:52-0400 Body mass index (BMI) [Ratio] 19.76 kg/m2 Shanita Green PA-C Work Phone: [facility] 01-05-2025 09:52-0400 Body temperature 97.81 [degF] Shanita Green PA-C Work Phone: [facility] 01-05-2025 09:52-0400 Body weight 39.97 kg Shanita Green PA-C Work Phone: [facility] 01-05-2025 09:52-0400 Diastolic blood pressure 82 mm[Hg] Shanita Green PA-C Work Phone: [facility] 01-05-2025 09:52-0400 Heart rate 77 /min Shanita Green PA-C Work Phone: [facility] 01-05-2025 09:52-0400 Respiratory rate 16 /min Shanita Green PA-C Work Phone: [facility] 01-05-2025 09:52-0400 SaO2% (BldA) [Mass fraction] 96 % Shanita Green PA-C Work Phone: [facility] 01-05-2025 09:52-0400 Systolic blood pressure 118 mm[Hg] Shanita Green PA-C Work Phone: [facility] 10-01-2024 10:15-0500 Body height 142.2 cm Rito Camp MD Work Phone: [facility] 10-01-2024 10:15-0500 Body mass index (BMI) [Ratio] 20.49 kg/m2 Rito Camp MD Work Phone: [facility] 10-01-2024 10:15-0500 Body weight 41.46 kg Rito Camp MD Work Phone: 0(123)068-318548 [place] [address] 10-01-2024 10:15-0500 Diastolic blood pressure 77 mm[Hg] Rito Camp MD Work Phone: 5(189)577-208448 [place] [address] 10-01-2024 10:15-0500 Heart rate 83 /min Rito Cmap MD Work Phone: 7(437)618-833148 [place] [address] 10-01-2024 10:15-0500 Systolic blood pressure 138 mm[Hg] Rito Camp MD Work Phone: 6(247)558-741248 [place] [address] 09-15-2024 08:02-0500 Body height 144.[address] Rito Camp MD Work Phone: 4(497)641-265794 [place] [address] 09-15-2024 08:02-0500 Body mass index (BMI) [Ratio] 19.9 kg/m2 Dr. Rito Camp MD Work Phone: 4(170)711-792194 [place] [address] 09-15-2024 08:02-0500 Body temperature 97 [degF] Dr. Rito Camp MD Work Phone: 2(340)566-157194 [place] [address] 09-15-2024 08:02-0500 Body weight 41.[address] Rito Camp MD Work Phone: 6(574)009-858694 [place] [address] 09-15-2024 08:02-0500 Diastolic blood pressure 80 mm[Hg] Dr. Rito Camp MD Work Phone: 4(434)268-235894 [place] [address] 09-15-2024 08:02-0500 Heart rate 85 /min Dr. Rito Camp MD Work Phone: 0(138)985-549794 [place] [address] 09-15-2024 08:02-0500 Respiratory rate 20 /min Dr. Rito Camp MD Work Phone: [facility] 09-15-2024 08:02-0500 SaO2% (BldA) [Mass fraction] 95 % Dr. Rito Camp MD Work Phone: [facility] 09-15-2024 08:02-0500 Systolic blood pressure 127 mm[Hg] Dr. Rito Camp MD Work Phone: [facility] 08-03-2024 09:16-0500 Body mass index (BMI) [Ratio] 19.91 kg/m2 Alex Brown APRN.SENIOR INFORMATICA DEVELOPER Work Phone: [facility] 08-03-2024 09:16-0500 Body weight 41.73 kg Alex Brown APRN.SENIOR INFORMATICA DEVELOPER Work Phone: [facility] 08-03-2024 09:16-0500 Diastolic blood pressure 78 mm[Hg] Alex Brown APRN.SENIOR INFORMATICA DEVELOPER Work Phone: [facility] 08-03-2024 09:16-0500 Heart rate 79 /min Alex Brown APRN.SENIOR INFORMATICA DEVELOPER Work Phone: [facility] 08-03-2024 09:16-0500 Systolic blood pressure 135 mm[Hg] Alex Brown APRN.SENIOR INFORMATICA DEVELOPER Work Phone: [facility] 07-31-2024 10:45-0500 Body mass index (BMI) [Ratio] 19.66 kg/m2 Shanna Newton APRN.SENIOR INFORMATICA DEVELOPER Work Phone: [facility] 07-31-2024 10:45-0500 Body temperature 99.3 [degF] Shanna Newton APRN.SENIOR INFORMATICA DEVELOPER Work Phone: [facility] 07-31-2024 10:45-0500 Body weight 41.2 kg Shanna Newton APRN.SENIOR INFORMATICA DEVELOPER Work Phone: [facility] 07-31-2024 10:45-0500 Diastolic blood pressure 88 mm[Hg] Shanna Newton APRN.SENIOR INFORMATICA DEVELOPER Work Phone: [facility] 07-31-2024 10:45-0500 Heart rate 96 /min Shanna Newton APRN.SENIOR INFORMATICA DEVELOPER Work Phone: [facility] 07-31-2024 10:45-0500 Respiratory rate 20 /min Shanna Newton APRN.SENIOR INFORMATICA DEVELOPER Work Phone: [facility] 07-31-2024 10:45-0500 SaO2% (BldA) [Mass fraction] 92 % Shanna Newton APRN.SENIOR INFORMATICA DEVELOPER Work Phone: [facility] 07-31-2024 10:45-0500 Systolic blood pressure 148 mm[Hg] Shanna Newton APRN.SENIOR INFORMATICA DEVELOPER Work Phone: [facility] 06-07-2024 11:08-0400 Body mass index (BMI) [Ratio] 18.84 kg/m2 Shanna Newton APRN.SENIOR INFORMATICA DEVELOPER Work Phone: [facility] 06-07-2024 11:08-0400 Body temperature 98.8 [degF] Shanna Newton APRN.SENIOR INFORMATICA DEVELOPER Work Phone: [facility] 06-07-2024 11:08-0400 Body weight 39.5 kg Shanna Newton APRN.SENIOR INFORMATICA DEVELOPER Work Phone: [facility] 06-07-2024 11:08-0400 Diastolic blood pressure 84 mm[Hg] Shanna Newton APRN.SENIOR INFORMATICA DEVELOPER Work Phone: [facility] 06-07-2024 11:08-0400 Heart rate 99 /min Shanna Newton APRN.SENIOR INFORMATICA DEVELOPER Work Phone: [facility] 06-07-2024 11:08-0400 Respiratory rate 22 /min Shanna Newton APRN.SENIOR INFORMATICA DEVELOPER Work Phone: [facility] 06-07-2024 11:08-0400 SaO2% (BldA) [Mass fraction] 95 % Shanna Newton APRN.SENIOR INFORMATICA DEVELOPER Work Phone: [facility] 06-07-2024 11:08-0400 Systolic blood pressure 154 mm[Hg] Shanna John PRODUCTION SAMPLER.SENIOR INFORMATICA DEVELOPER Work Phone: [facility] 06-05-2024 13:09-0400 Body mass index (BMI) [Ratio] 19.04 kg/m2 Rito Camp MD Work Phone: [facility] 06-05-2024 13:09-0400 Body weight 39.92 kg Rito Camp MD Work Phone: [facility] 06-05-2024 13:09-0400 Diastolic blood pressure 86 mm[Hg] Rito Camp MD Work Phone: [facility] 06-05-2024 13:09-0400 Heart rate 82 /min Rito Camp MD Work Phone: [facility] 06-05-2024 13:09-0400 Respiratory rate 16 /min Rito Camp MD Work Phone: [facility] 06-05-2024 13:09-0400 Systolic blood pressure 132 mm[Hg] Rito Camp MD Work Phone: [facility] 06-03-2024 09:58-0400 Body mass index (BMI) [Ratio] 19.37 kg/m2 Mary Ann Sherman PRODUCTION SAMPLER.SENIOR INFORMATICA DEVELOPER Work Phone: [facility] 06-03-2024 09:58-0400 Body temperature 98.49 [degF] Mary Ann Sherman PRODUCTION SAMPLER.SENIOR INFORMATICA DEVELOPER Work Phone: [facility] 06-03-2024 09:58-0400 Body weight 40.6 kg Mary Ann Sherman PRODUCTION SAMPLER.SENIOR INFORMATICA DEVELOPER Work Phone: [facility] 06-03-2024 09:58-0400 Diastolic blood pressure 88 mm[Hg] Mary Ann Sherman PRODUCTION SAMPLER.SENIOR INFORMATICA DEVELOPER Work Phone: [facility] 06-03-2024 09:58-0400 Heart rate 85 /min Mary Ann Sherman PRODUCTION SAMPLER.SENIOR INFORMATICA DEVELOPER Work Phone: [facility] 06-03-2024 09:58-0400 Respiratory rate 20 /min Mary Ann Sherman PRODUCTION SAMPLER.SENIOR INFORMATICA DEVELOPER Work Phone: [facility] 06-03-2024 09:58-0400 SaO2% (BldA) [Mass fraction] 94 % Mary Ann Sherman APRN.SENIOR INFORMATICA DEVELOPER Work Phone: [facility] 06-03-2024 09:58-0400 Systolic blood pressure 142 mm[Hg] Mary Ann Sherman APRN.SENIOR INFORMATICA DEVELOPER Work Phone: [facility] 04-14-2024 09:51-0400 Body mass index (BMI) [Ratio] 19.26 kg/m2 Alex Brown PRODUCTION SAMPLER.SENIOR INFORMATICA DEVELOPER Work Phone: [facility] 04-14-2024 09:51-0400 Body weight 40.37 kg Alex Brown APRN.SENIOR INFORMATICA DEVELOPER Work Phone: [facility] 04-14-2024 09:51-0400 Diastolic blood pressure 73 mm[Hg] Alex Brown APRN.SENIOR INFORMATICA DEVELOPER Work Phone: [facility] 04-14-2024 09:51-0400 Heart rate 98 /min Alex Brown APRN.SENIOR INFORMATICA DEVELOPER Work Phone: [facility] 04-14-2024 09:51-0400 Respiratory rate 14 /min Alex Brown APRN.SENIOR INFORMATICA DEVELOPER Work Phone: [facility] 04-14-2024 09:51-0400 Systolic blood pressure 143 mm[Hg] Alex Brown APRN.SENIOR INFORMATICA DEVELOPER Work Phone: [facility] 03-26-2024 11:33-0400 Body mass index (BMI) [Ratio] 19.69 kg/m2 Alex Brown APRN.SENIOR INFORMATICA DEVELOPER Work Phone: [facility] 03-26-2024 11:33-0400 Body weight 41.28 kg Alex Brown APRN.SENIOR INFORMATICA DEVELOPER Work Phone: [facility] 03-26-2024 11:33-0400 Diastolic blood pressure 86 mm[Hg] Alex Brown APRN.SENIOR INFORMATICA DEVELOPER Work Phone: [facility] 03-26-2024 11:33-0400 Heart rate 92 /min Alex Knoble PRODUCTION SAMPLER.SENIOR INFORMATICA DEVELOPER Work Phone: [facility] 03-26-2024 11:33-0400 Respiratory rate 14 /min Alex Brown PRODUCTION SAMPLER.SENIOR INFORMATICA DEVELOPER Work Phone: [facility] 03-26-2024 11:33-0400 Systolic blood pressure 150 mm[Hg] Alex Brown PRODUCTION SAMPLER.SENIOR INFORMATICA DEVELOPER Work Phone: [facility] 03-18-2024 10:42-0400 Body mass index (BMI) [Ratio] 19.91 kg/m2 Sweetie Podlogar PRODUCTION SAMPLER.SENIOR INFORMATICA DEVELOPER Work Phone: [facility] 03-18-2024 10:42-0400 Body temperature 98.91 [degF] Sweetie Podlogar PRODUCTION SAMPLER.SENIOR INFORMATICA DEVELOPER Work Phone: [facility] 03-18-2024 10:42-0400 Body weight 41.73 kg Sweetie Podlogar PRODUCTION SAMPLER.SENIOR INFORMATICA DEVELOPER Work Phone: [facility] 03-18-2024 10:42-0400 Diastolic blood pressure 76 mm[Hg] Sweetie Podlogar PRODUCTION SAMPLER.SENIOR INFORMATICA DEVELOPER Work Phone: [facility] 03-18-2024 10:42-0400 Heart rate 79 /min Sweetie Podlogar PRODUCTION SAMPLER.SENIOR INFORMATICA DEVELOPER Work Phone: [facility] 03-18-2024 10:42-0400 Respiratory rate 18 /min Sweetie Podlogar PRODUCTION SAMPLER.SENIOR INFORMATICA DEVELOPER Work Phone: [facility] 03-18-2024 10:42-0400 SaO2% (BldA) [Mass fraction] 94 % Sweetie Podlogar PRODUCTION SAMPLER.SENIOR INFORMATICA DEVELOPER Work Phone: [facility] 03-18-2024 10:42-0400 Systolic blood pressure 142 mm[Hg] Sweetie Podlogar PRODUCTION SAMPLER.SENIOR INFORMATICA DEVELOPER Work Phone: [facility] 01-01-2024 07:45-0400 Body height 144.[address] Rito Camp Work Phone: [facility] 01-01-2024 07:45-0400 Body mass index (BMI) [Ratio] 19.5 kg/m2 Dr. Rito Camp Work Phone: [facility] 01-01-2024 07:45-0400 Body temperature 96.9 [degF] Dr. Rito Camp Work Phone: [facility] 01-01-2024 07:45-0400 Body weight 40.[address] Rito Camp Work Phone: [facility] 01-01-2024 07:45-0400 Diastolic blood pressure 77 mm[Hg] Dr. Rito Camp Work Phone: [facility] 01-01-2024 07:45-0400 Heart rate 90 /min Dr. Rito Camp Work Phone: [facility] 01-01-2024 07:45-0400 Respiratory rate 20 /min Dr. Rito Camp Work Phone: [facility] 01-01-2024 07:45-0400 SaO2% (BldA) [Mass fraction] 95 % Dr. Rito Camp Work Phone: [facility] 01-01-2024 07:45-0400 Systolic blood pressure 135 mm[Hg] Dr. Rito Camp Work Phone: [facility] 12-23-2023 09:58-0400 Body mass index (BMI) [Ratio] 19.75 kg/m2 Mary Ann Sherman APRN.SENIOR INFORMATICA DEVELOPER Work Phone: [facility] 12-23-2023 09:58-0400 Body temperature 99.1 [degF] Mary Ann Sherman PRODUCTION SAMPLER.SENIOR INFORMATICA DEVELOPER Work Phone: [facility] 12-23-2023 09:58-0400 Body weight 41.4 kg Mary Ann Sherman PRODUCTION SAMPLER.SENIOR INFORMATICA DEVELOPER Work Phone: [facility] 12-23-2023 09:58-0400 Diastolic blood pressure 86 mm[Hg] Mary Ann Sherman PRODUCTION SAMPLER.SENIOR INFORMATICA DEVELOPER Work Phone: [facility] 12-23-2023 09:58-0400 Heart rate 105 /min Mary Ann Sherman PRODUCTION SAMPLER.SENIOR INFORMATICA DEVELOPER Work Phone: [facility] 12-23-2023 09:58-0400 Respiratory rate 21 /min Mary Ann Sherman PRODUCTION SAMPLER.SENIOR INFORMATICA DEVELOPER Work Phone: [facility] 12-23-2023 09:58-0400 SaO2% (BldA) [Mass fraction] 93 % Mary Ann Sherman PRODUCTION SAMPLER.SENIOR INFORMATICA DEVELOPER Work Phone: [facility] 12-23-2023 09:58-0400 Systolic blood pressure 122 mm[Hg] Mary Ann Sherman PRODUCTION SAMPLER.SENIOR INFORMATICA DEVELOPER Work Phone: [facility] 12-22-2023 10:22-0400 Body temperature 98.91 [degF] Teresa Athy PA-C Work Phone: [facility] 12-22-2023 10:22-0400 Body weight 41 kg Teresa Athy PA-C Work Phone: [facility] 12-22-2023 10:22-0400 Diastolic blood pressure 78 mm[Hg] Teresa Athy PA-C Work Phone: [facility] 12-22-2023 10:22-0400 Heart rate 96 /min Teresa Athy PA-C Work Phone: [facility] 12-22-2023 10:22-0400 Respiratory rate 22 /min Teresa Athy PA-C Work Phone: [facility] 12-22-2023 10:22-0400 SaO2% (BldA) [Mass fraction] 96 % Teresa Athy PA-C Work Phone: [facility] 12-22-2023 10:22-0400 Systolic blood pressure 131 mm[Hg] Teresa Athy PA-C Work Phone: [facility] 10-15-2023 08:43-0500 Body temperature 98.01 [degF] Shanita Green PA-C Work Phone: [facility] 10-15-2023 08:43-0500 Body weight 42.19 kg Shanita Green PA-C Work Phone: [facility] 10-15-2023 08:43-0500 Diastolic blood pressure 80 mm[Hg] Shanita Green PA-C Work Phone: [facility] 10-15-2023 08:43-0500 Heart rate 110 /min Shanita Green PA-C Work Phone: [facility] 10-15-2023 08:43-0500 Respiratory rate 16 /min Shanita Green PA-C Work Phone: [facility] 10-15-2023 08:43-0500 Systolic blood pressure 122 mm[Hg] Shanita Green PA-C Work Phone: [facility] 06-11-2023 09:23-0400 Body height 144.8 cm Toi Falcon MD Work Phone: [facility] 06-11-2023 09:23-0400 Body temperature 97.3 [degF] Toi Falcon MD Work Phone: [facility] 06-11-2023 09:23-0400 Body weight 39.46 kg Toi Falcon MD Work Phone: [facility] 06-11-2023 09:23-0400 Diastolic blood pressure 72 mm[Hg] Toi Falcon MD Work Phone: [facility] 06-11-2023 09:23-0400 Heart rate 94 /min Toi Falcon MD Work Phone: [facility] 06-11-2023 09:23-0400 SaO2% (BldA) [Mass fraction] 94 % Toi Falcon MD Work Phone: [facility] 06-11-2023 09:23-0400 Systolic blood pressure 112 mm[Hg] Toi Falcon MD Work Phone: [facility] 06-08-2023 11:16-0400 Diastolic blood pressure 80 mm[Hg] Rito Camp MD Work Phone: [facility] 06-08-2023 11:16-0400 Systolic blood pressure 154 mm[Hg] Rito Camp MD Work Phone: [facility] 06-08-2023 10:43-0400 Body temperature 98.91 [degF] Rito Camp MD Work Phone: [facility] 06-08-2023 10:43-0400 Body weight 40.82 kg Rito Camp MD Work Phone: [facility] 06-08-2023 10:43-0400 Heart rate 97 /min Rito Camp MD Work Phone: [facility] 06-08-2023 10:43-0400 Respiratory rate 18 /min Rito Camp MD Work Phone: [facility] 06-08-2023 10:43-0400 SaO2% (BldA) [Mass fraction] 95 % Rito Camp MD Work Phone: [facility] 06-04-2023 10:46-0400 Body weight 39.92 kg Alex Brown APRN.SENIOR INFORMATICA DEVELOPER Work Phone: [facility] 06-04-2023 10:46-0400 Diastolic blood pressure 80 mm[Hg] Alex Brown APRN.SENIOR INFORMATICA DEVELOPER Work Phone: [facility] 06-04-2023 10:46-0400 Heart rate 104 /min Alex Brown APRN.SENIOR INFORMATICA DEVELOPER Work Phone: [facility] 06-04-2023 10:46-0400 Respiratory rate 14 /min Alex Brown PRODUCTION SAMPLER.SENIOR INFORMATICA DEVELOPER Work Phone: [facility] 06-04-2023 10:46-0400 Systolic blood pressure 118 mm[Hg] Alex Brown APRN.SENIOR INFORMATICA DEVELOPER Work Phone: [facility] 06-02-2023 13:45-0400 Body temperature 98.5 [degF] Dr. Rito Camp Work Phone: [facility] 06-02-2023 13:45-0400 Diastolic blood pressure 82 mm[Hg] Dr. Rito Camp Work Phone: 6(862)327-427968 [place] [address] 06-02-2023 13:45-0400 Heart rate 98 /min Dr. Rito Camp Work Phone: 4(961)236-605694 [place] [address] 06-02-2023 13:45-0400 Respiratory rate 18 /min Dr. Rito Camp Work Phone: 0(447)915-821994 [place] [address] 06-02-2023 13:45-0400 SaO2% (BldA) [Mass fraction] 95 % Dr. Rito Camp Work Phone: 3(304)780-835094 [place] [address] 06-02-2023 13:45-0400 Systolic blood pressure 135 mm[Hg] Dr. Rito Camp Work Phone: 5(384)426-381094 [place] [address] 06-01-2023 11:41-0400 Body height 144.[address] Rito Camp Work Phone: 7(787)140-385794 [place] [address] 06-01-2023 11:41-0400 Body weight 40.[address] Rito Camp Work Phone: 4(406)084-038694 [place] [address] 06-01-2023 02:55-0400 Body mass index (BMI) [Ratio] 19.2 kg/m2 Dr. Rito Camp Work Phone: 6(092)311-330494 [place] [address] 06-01-2023 01:29-0400 Body temperature 99 [degF] Dr. Rito Camp Work Phone: 7(624)433-363894 [place] [address] 06-01-2023 01:29-0400 Diastolic blood pressure 93 mm[Hg] Dr. Rito Camp Work Phone: 5(204)344-019470 [address] 06-01-2023 01:29-0400 Heart rate 91 /min Dr. Rito Camp Work Phone: 0(650)478-697768 [place] [address] 06-01-2023 01:29-0400 Respiratory rate 18 /min Dr. Rito Camp Work Phone: 9(913)942-179468 [place] [address] 06-01-2023 01:29-0400 SaO2% (BldA) [Mass fraction] 92 % Dr. Rito Camp Work Phone: 9(540)539-200594 [place] [address] 06-01-2023 01:29-0400 Systolic blood pressure 150 mm[Hg] Dr. Rito Camp Work Phone: 1(952)522-940694 [place] [address] 05-31-2023 21:50-0400 Body height 147.[address] Rito Camp Work Phone: 9(972)426-471994 [place] [address] 05-31-2023 21:50-0400 Body mass index (BMI) [Ratio] 19.2 kg/m2 Dr. Rito Camp Work Phone: 1(213)838-821494 [place] [address] 05-31-2023 21:50-0400 Body weight 41.[address] Rito Camp Work Phone: 4(025)961-500194 [place] [address] 04-17-2023 08:02-0400 Body mass index (BMI) [Ratio] 19 kg/m2 Dr. Rito Camp Work Phone: 9(646)522-472194 [place] [address] 04-17-2023 08:02-0400 Body temperature 97.5 [degF] Dr. Rito Camp Work Phone: 2(636)733-912394 [place] [address] 04-17-2023 08:02-0400 Body weight 39.[address] Rito Camp Work Phone: 3(527)913-518194 [place] [address] 04-17-2023 08:02-0400 Diastolic blood pressure 80 mm[Hg] Dr. Rito Camp Work Phone: 8(133)644-542194 [place] [address] 04-17-2023 08:02-0400 Heart rate 79 /min Dr. Rito Camp Work Phone: 9(097)853-939994 [place] [address] 04-17-2023 08:02-0400 Respiratory rate 18 /min Dr. Rito Camp Work Phone: 7(871)816-387894 [place] [address] 04-17-2023 08:02-0400 SaO2% (BldA) [Mass fraction] 96 % Dr. Rito Camp Work Phone: 4(779)881-346394 [place] [address] 04-17-2023 08:02-0400 Systolic blood pressure 135 mm[Hg] Dr. Rito Camp Work Phone: [facility] 02-25-2023 09:26-0400 Body mass index (BMI) [Ratio] 19.3 kg/m2 Dr. Rito Camp Work Phone: [facility] 02-25-2023 09:26-0400 Body temperature 98.4 [degF] Dr. Rito Camp Work Phone: [facility] 02-25-2023 09:26-0400 Body weight 40.[address] Rito Camp Work Phone: [facility] 02-25-2023 09:26-0400 Diastolic blood pressure 80 mm[Hg] Dr. Rito Camp Work Phone: [facility] 02-25-2023 09:26-0400 Heart rate 86 /min Dr. Rito Camp Work Phone: 3(680)335-519868 [place] [address] 02-25-2023 09:26-0400 Respiratory rate 16 /min Dr. Rito Camp Work Phone: [facility] 02-25-2023 09:26-0400 SaO2% (BldA) [Mass fraction] 94 % Dr. Rito Camp Work Phone: [facility] 02-25-2023 09:26-0400 Systolic blood pressure 130 mm[Hg] Dr. Rito Camp Work Phone: [facility] 02-20-2023 09:09-0400 Diastolic blood pressure 83 mm[Hg] Shanita CORREA-C Work Phone: [facility] 02-20-2023 09:09-0400 Heart rate 85 /min Shanita CORREA-C Work Phone: [facility] 02-20-2023 09:09-0400 Systolic blood pressure 130 mm[Hg] Shanita CORREA-C Work Phone: [facility] 02-20-2023 08:20-0400 Body temperature 98.1 [degF] Shanita OCRREA-C Work Phone: [facility] 02-20-2023 08:20-0400 Respiratory rate 16 /min Shanita Green PA-C Work Phone: [facility] 02-15-2023 09:31-0400 Body temperature 98.8 [degF] Alex Brown PRODUCTION SAMPLER.SENIOR INFORMATICA DEVELOPER Work Phone: [facility] 02-15-2023 09:31-0400 Body weight 40.46 kg Alex Brown PRODUCTION SAMPLER.SENIOR INFORMATICA DEVELOPER Work Phone: [facility] 02-15-2023 09:31-0400 Diastolic blood pressure 82 mm[Hg] Alex Brown PRODUCTION SAMPLER.SENIOR INFORMATICA DEVELOPER Work Phone: [facility] 02-15-2023 09:31-0400 Heart rate 98 /min Alex Brown PRODUCTION SAMPLER.SENIOR INFORMATICA DEVELOPER Work Phone: [facility] 02-15-2023 09:31-0400 Respiratory rate 20 /min Alex Brown PRODUCTION SAMPLER.SENIOR INFORMATICA DEVELOPER Work Phone: [facility] 02-15-2023 09:31-0400 SaO2% (BldA) [Mass fraction] 97 % Alex Brown PRODUCTION SAMPLER.SENIOR INFORMATICA DEVELOPER Work Phone: [facility] 02-15-2023 09:31-0400 Systolic blood pressure 128 mm[Hg] Alex Brown PRODUCTION SAMPLER.SENIOR INFORMATICA DEVELOPER Work Phone: [facility] 02-13-2023 00:12-0400 Diastolic blood pressure 96 mm[Hg] Dr. Rito Camp Work Phone: [facility] 02-13-2023 00:12-0400 Systolic blood pressure 148 mm[Hg] Dr. Rito Camp Work Phone: [facility] 02-12-2023 21:58-0400 Body mass index (BMI) [Ratio] 20.9 kg/m2 Dr. Rito Camp Work Phone: [facility] 02-12-2023 21:58-0400 Body temperature 97.3 [degF] Dr. Rito Camp Work Phone: [facility] 02-12-2023 21:58-0400 Body weight 43.[address] Rito Camp Work Phone: [facility] 02-12-2023 21:58-0400 Heart rate 120 /min Dr. Rito Camp Work Phone: [facility] 02-12-2023 21:58-0400 Respiratory rate 16 /min Dr. Rito Camp Work Phone: [facility] 02-12-2023 21:58-0400 SaO2% (BldA) [Mass fraction] 92 % Dr. Rito Camp Work Phone: [facility] 11-19-2022 10:01-0400 Body weight 40.37 kg Rito Camp MD Work Phone: [facility] 11-19-2022 10:01-0400 Diastolic blood pressure 82 mm[Hg] Rito Camp MD Work Phone: [facility] 11-19-2022 10:01-0400 Heart rate 76 /min Rito Camp MD Work Phone: [facility] 11-19-2022 10:01-0400 Respiratory rate 18 /min Rito Camp MD Work Phone: [facility] 11-19-2022 10:01-0400 Systolic blood pressure 122 mm[Hg] Rito Camp MD Work Phone: [facility] 09-27-2022 09:52-0500 Body height 144.8 cm Rito Camp MD Work Phone: [facility] 09-27-2022 09:52-0500 Body weight 42.19 kg Rito Camp MD Work Phone: [facility] 09-27-2022 09:52-0500 Diastolic blood pressure 80 mm[Hg] iRto Camp MD Work Phone: [facility] 09-27-2022 09:52-0500 Heart rate 82 /min Rito Camp MD Work Phone: [facility] 09-27-2022 09:52-0500 Respiratory rate 18 /min Rito Camp MD Work Phone: [facility] 09-27-2022 09:52-0500 Systolic blood pressure 130 mm[Hg] Rito Camp MD Work Phone: [facility] 07-31-2022 09:32-0500 Body height 144.8 cm Ashleigh Negrete APRN.SENIOR INFORMATICA DEVELOPER Work Phone: [facility] 07-31-2022 09:32-0500 Body weight 42.64 kg Ashleigh Negrete APRN.SENIOR INFORMATICA DEVELOPER Work Phone: [facility] 07-31-2022 09:32-0500 Diastolic blood pressure 68 mm[Hg] Ashleigh Negrete PRODUCTION SAMPLER.SENIOR INFORMATICA DEVELOPER Work Phone: [facility] 07-31-2022 09:32-0500 Systolic blood pressure 100 mm[Hg] Ashleigh Negrete PRODUCTION SAMPLER.SENIOR INFORMATICA DEVELOPER Work Phone: [facility] 07-09-2022 10:42-0500 Body temperature 98.91 [degF] Sweetie Podlogar PRODUCTION SAMPLER.SENIOR INFORMATICA DEVELOPER Work Phone: [facility] 07-09-2022 10:42-0500 Diastolic blood pressure 72 mm[Hg] Sweetie Podlogar PRODUCTION SAMPLER.SENIOR INFORMATICA DEVELOPER Work Phone: [facility] 07-09-2022 10:42-0500 Heart rate 91 /min Sweetie Podlogar PRODUCTION SAMPLER.SENIOR INFORMATICA DEVELOPER Work Phone: [facility] 07-09-2022 10:42-0500 Respiratory rate 20 /min Sweetie Podlogar PRODUCTION SAMPLER.SENIOR INFORMATICA DEVELOPER Work Phone: [facility] 07-09-2022 10:42-0500 SaO2% (BldA) [Mass fraction] 97 % Sweetie Podlogar PRODUCTION SAMPLER.SENIOR INFORMATICA DEVELOPER Work Phone: [facility] 07-09-2022 10:42-0500 Systolic blood pressure 128 mm[Hg] Sweetie Podlogar PRODUCTION SAMPLER.SENIOR INFORMATICA DEVELOPER Work Phone: [facility] 07-04-2022 09:42-0400 Body temperature 99.19 [degF] [facility] PRODUCTION SAMPLER.SENIOR INFORMATICA DEVELOPER Work Phone: [facility] 07-04-2022 09:42-0400 Body weight 42.27 kg [facility] PRODUCTION SAMPLER.SENIOR INFORMATICA DEVELOPER Work Phone: [facility] 07-04-2022 09:42-0400 Diastolic blood pressure 86 mm[Hg] [facility] PRODUCTION SAMPLER.SENIOR INFORMATICA DEVELOPER Work Phone: [facility] 07-04-2022 09:42-0400 Heart rate 95 /min [facility] PRODUCTION SAMPLER.SENIOR INFORMATICA DEVELOPER Work Phone: [facility] 07-04-2022 09:42-0400 Respiratory rate 20 /min [facility] PRODUCTION SAMPLER.SENIOR INFORMATICA DEVELOPER Work Phone: [facility] 07-04-2022 09:42-0400 SaO2% (BldA) [Mass fraction] 98 % [facility] PRODUCTION SAMPLER.SENIOR INFORMATICA DEVELOPER Work Phone: [facility] 07-04-2022 09:42-0400 Systolic blood pressure 132 mm[Hg] [facility] PRODUCTION SAMPLER.SENIOR INFORMATICA DEVELOPER Work Phone: [facility] 05-28-2022 10:18-0400 Body temperature 98.1 [degF] Shanita Green PA-C Work Phone: [facility] 05-28-2022 10:18-0400 Body weight 41.73 kg Shanita Green PA-C Work Phone: [facility] 05-28-2022 10:18-0400 Diastolic blood pressure 68 mm[Hg] Shanita Green PA-C Work Phone: [facility] 05-28-2022 10:18-0400 Heart rate 76 /min Shanita Green PA-C Work Phone: [facility] 05-28-2022 10:18-0400 Respiratory rate 16 /min Shanita Green PA-C Work Phone: [facility] 05-28-2022 10:18-0400 Systolic blood pressure 94 mm[Hg] Shanita Green PA-C Work Phone: [facility] 04-16-2022 06:37-0400 Body height 144.[address] Rito Camp Work Phone: [facility] Work Phone: 04-16-2022 06:37-0400 Body mass index (BMI) [Ratio] 20.3 kg/m2 Dr. Rito Camp Work Phone: [facility] Work Phone: 04-16-2022 06:37-0400 Body temperature 97.8 [degF] Dr. Rito Camp Work Phone: [facility] Work Phone: 04-16-2022 06:37-0400 Body weight 42.[address] Rito Camp Work Phone: [facility] Work Phone: 04-16-2022 06:37-0400 Diastolic blood pressure 75 mm[Hg] Dr. Rito Camp Work Phone: [facility] Work Phone: 04-16-2022 06:37-0400 Heart rate 78 /min Dr. Rito Camp Work Phone: [facility] Work Phone: 04-16-2022 06:37-0400 Respiratory rate 16 /min Dr. Rito Camp Work Phone: [facility] Work Phone: 04-16-2022 06:37-0400 SaO2% (BldA) [Mass fraction] 93 % Dr. Rito Camp Work Phone: [facility] Work Phone: 04-16-2022 06:37-0400 Systolic blood pressure 118 mm[Hg] Dr. Rito Camp Work Phone: [facility] Work Phone: 03-23-2022 07:44-0400 Body temperature 99 [degF] Shanita Green PA-C Work Phone: [facility] 03-23-2022 07:44-0400 Body weight 42.64 kg Shanita Green PA-C Work Phone: [facility] 03-23-2022 07:44-0400 Diastolic blood pressure 68 mm[Hg] Shanita Green PA-C Work Phone: [facility] 03-23-2022 07:44-0400 Heart rate 72 /min Shanita Green PA-C Work Phone: [facility] 03-23-2022 07:44-0400 Respiratory rate 16 /min Shanita Green PA-C Work Phone: [facility] 03-23-2022 07:44-0400 Systolic blood pressure 100 mm[Hg] Shanita Green PA-C Work Phone: [facility] 03-18-2022 15:30-0400 Body temperature 97.1 [degF] Dr. Rito Camp Work Phone: [facility] Work Phone: 03-18-2022 15:30-0400 Diastolic blood pressure 84 mm[Hg] Dr. Rito Camp Work Phone: [facility] Work Phone: 03-18-2022 15:30-0400 Heart rate 92 /min Dr. Rito Camp Work Phone: [facility] Work Phone: 03-18-2022 15:30-0400 Respiratory rate 18 /min Dr. Rito Camp Work Phone: [facility] Work Phone: 03-18-2022 15:30-0400 SaO2% (BldA) [Mass fraction] 96 % Dr. Rtio Camp Work Phone: [facility] Work Phone: 03-18-2022 15:30-0400 Systolic blood pressure 140 mm[Hg] Dr. Rito Camp Work Phone: [facility] Work Phone: 03-18-2022 06:00-0400 Body weight 42.[address] Rito Camp Work Phone: [facility] Work Phone: 03-17-2022 22:51-0400 Body height 144.[address] Rito Camp Work Phone: [facility] Work Phone: 03-17-2022 22:51-0400 Body mass index (BMI) [Ratio] 20.1 kg/m2 Dr. Rito Camp Work Phone: [facility] Work Phone: 03-17-2022 21:48-0400 Body temperature 98.8 [degF] Dr. Rito Camp Work Phone: [facility] Work Phone: 03-17-2022 21:48-0400 Diastolic blood pressure 89 mm[Hg] Dr. Rito Camp Work Phone: [facility] Work Phone: 03-17-2022 21:48-0400 Heart rate 95 /min Dr. Rito Camp Work Phone: [facility] Work Phone: 03-17-2022 21:48-0400 Respiratory rate 18 /min Dr. Rito Camp Work Phone: [facility] Work Phone: 03-17-2022 21:48-0400 SaO2% (BldA) [Mass fraction] 95 % Dr. Rito Camp Work Phone: [facility] Work Phone: 03-17-2022 21:48-0400 Systolic blood pressure 160 mm[Hg] Dr. Rito Camp Work Phone: [facility] Work Phone: 03-17-2022 17:25-0400 Body height 144.[address] Rito Camp Work Phone: [facility] Work Phone: 03-17-2022 17:25-0400 Body mass index (BMI) [Ratio] 20.5 kg/m2 Dr. Rito Camp Work Phone: [facility] Work Phone: 03-17-2022 17:25-0400 Body weight 43.[address] Rito Camp Work Phone: [facility] Work Phone: 03-14-2022 10:14-0400 Body temperature 98.29 [degF] Bernard Elliott MD Work Phone: [facility] 03-14-2022 10:14-0400 Body weight 43.55 kg Bernard Elliott MD Work Phone: [facility] 03-14-2022 10:14-0400 Diastolic blood pressure 60 mm[Hg] Bernard Elliott MD Work Phone: [facility] 03-14-2022 10:14-0400 Heart rate 88 /min Bernard Elliott MD Work Phone: [facility] 03-14-2022 10:14-0400 Respiratory rate 16 /min Bernard Elliott MD Work Phone: [facility] 03-14-2022 10:14-0400 SaO2% (BldA) [Mass fraction] 96 % Bernard Elliott MD Work Phone: [facility] 03-14-2022 10:14-0400 Systolic blood pressure 122 mm[Hg] Bernard Elliott MD Work Phone: [facility] 01-10-2022 09:47-0400 Body temperature 98.49 [degF] Shanna Newton APRN.CNP Work Phone: [facility] 01-10-2022 09:47-0400 Body weight 43.18 kg Shanna Newton APRN.SENIOR INFORMATICA DEVELOPER Work Phone: [facility] 01-10-2022 09:47-0400 Diastolic blood pressure 80 mm[Hg] Shanna Newton APRN.SENIOR INFORMATICA DEVELOPER Work Phone: [facility] 01-10-2022 09:47-0400 Heart rate 84 /min Shanna Newton APRN.SENIOR INFORMATICA DEVELOPER Work Phone: [facility] 01-10-2022 09:47-0400 Respiratory rate 18 /min Shanna Newton APRN.SENIOR INFORMATICA DEVELOPER Work Phone: [facility] 01-10-2022 09:47-0400 SaO2% (BldA) [Mass fraction] 97 % Shanna Newton APRN.SENIOR INFORMATICA DEVELOPER Work Phone: [facility] 01-10-2022 09:47-0400 Systolic blood pressure 132 mm[Hg] Shanna Newton APRN.SENIOR INFORMATICA DEVELOPER Work Phone: [facility] 12-19-2021 10:28-0400 Body temperature 98.8 [degF] Shanita Green PA-C Work Phone: [facility] 12-19-2021 10:28-0400 Body weight 44.27 kg Shanita Green PA-C Work Phone: [facility] 12-19-2021 10:28-0400 Diastolic blood pressure 60 mm[Hg] Shanita Green PA-C Work Phone: [facility] 12-19-2021 10:28-0400 Heart rate 63 /min Shanita Green PA-C Work Phone: [facility] 12-19-2021 10:28-0400 Respiratory rate 18 /min Shanita Green PA-C Work Phone: [facility] 12-19-2021 10:28-0400 Systolic blood pressure 104 mm[Hg] Shanita Green PA-C Work Phone: [facility] Encounters Encounter Date Encounter Type Care Provider Facility Start: 03-31-2025 ambulatory Robe Jairo Facility :[facility] Start: 03-22-2025 End: 03-22-2025 Refill Rito Camp MD Work Phone: [facility] Comment on above: Refill Request Start: 03-18-2025 End: 03-26-2025 Follow-up encounter Shanita Green PA-C Work Phone: [facility] Start: 03-17-2025 End: 03-17-2025 Telephone encounter Rito Camp MD Work Phone: [facility] Comment on above: Insurance Authorizat ion Start: 03-15-2025 End: 03-15-2025 Office outpatient visit 25 minutes Shanita Green PA-C Work Phone: [facility] Comment on above: Psychophysiological insomnia (Primary Dx); Easy bruising; Lumbar radiculopathy Start: 03-15-2025 End: 03-15-2025 ambulatory RITO CAMP Facility:[facility] Start: 02-09-2025 End: 02-09-2025 Patient encounter procedure VOLTAGE TESTER Letha Emery -[facility] Work Phone: Start: 02-09-2025 End: 02-09-[address] Rito Camp MD Work Phone: [facility] Work Phone: Start: 01-21-2025 End: 01-21-2025 ambulatory RITO CAMP Facility:[facility] Start: 01-05-2025 End: 01-05-2025 Follow-up encounter Shanita Green PA-C Work Phone: [facility] Start: 01-05-2025 End: 01-05-2025 Subsequent hospital visit by physician [facility] Work Phone: Radiology Comment on above: Injury of right toe, initial encounter [S99.921A] Start: 01-05-2025 End: 01-05-2025 Office outpatient visit 25 minutes Shanita Green PA-C Work Phone: [facility] Comment on above: Injury of right toe, initial encounter (Primary Dx); Psychophysiological insomnia; Ectatic thoracic aorta Start: 01-05-2025 End: 01-05-2025 ambulatory RITO CAMP Facility:[facility] Start: 01-04-2025 End: 01-04-2025 Chart abstracting Rito Camp MD Work Phone: [facility] Comment on above: Outside Imaging (CT) Start: 01-01-2025 End: 01-01-[address] Rito Camp MD Work Phone: [facility] Work Phone: Start: 01-01-2025 End: 01-01-2025 Patient encounter procedure Sierra AVILES -Cat Scan, [facility] Work Phone: Start: 01-01-2025 End: 01-01-2025 ambulatory Sierra Dee NP Facility:[facility] Start: 12-28-2024 End: 12-29-2024 Follow-up encounter Rito Camp MD Work Phone: [facility] Start: 12-28-2024 ambulatory [facility] C[facility] Start: 12-28-2024 End: 12-28-2024 Subsequent hospital visit by physician [facility] Work Phone: Radiology Comment on above: Osteoporosis, unspec ified osteoporosis type, unspecified pathological fracture presence [M81.0] Start: 12-17-2024 End: 12-17-2024 Patient encounter procedure Angella Cueto VOLTAGE TESTER-C -[facility] Work Phone: Start: 12-17-2024 End: 12-17-2024 ambulatory Angella Cueto Facility[place] Start: 12-02-2024 End: 12-04-2024 Telephone encounter Aury Newton [facility] Comment on above: Results Start: 12-01-2024 End: 12-18-2024 Telephone encounter Alex Brown APRN.SENIOR INFORMATICA DEVELOPER Work Phone: [facility] Comment on above: Patient Question Start: 11-30-2024 End: 11-30-2024 Refill Rito Camp MD Work Phone: [facility] Comment on above: Refill Request Start: 11-25-2024 End: 11-25-[address] Rito Camp MD Work Phone: [facility] Work Phone: Start: 11-25-2024 End: 11-25-[address] Rito Camp MD -Speech Therapy Work Phone: Start: 11-25-[address] Leonard Camp MD -Speech Therapy Work Phone: Start: 11-24-2024 End: 11-24-[address] Rito Camp MD Work Phone: [facility] Work Phone: Start: 11-24-2024 End: 11-24-[address] Rito Camp MD -Radiology, [facility] Work Phone: Start: 11-24-2024 End: 11-24-2024 ambulatory Rito Camp Facility:[facility] Start: 11-10-2024 End: 11-10-2024 Chart abstracting Rito Camp MD Work Phone: [facility] Comment on above: Outside Anesthesia/P ain Start: 11-09-2024 End: 11-09-2024 Refill Rito Camp MD Work Phone: OB/Gynecology Comment on above: Refill Request Start: 11-05-2024 End: 11-05-2024 ambulatory No Pcp (Hist) [facility] [place] Start: 11-05-2024 End: 11-05-2024 Patient encounter procedure No Pcp (Hist) [facility] [place] Start: 11-04-2024 End: 11-04-2024 Telephone encounter Rito Camp MD Work Phone: [facility] Comment on above: Left Hip Pain Start: 11-02-2024 End: 11-02-2024 Refill Rito Camp MD Work Phone: [facility] Comment on above: Refill Request Start: 10-26-2024 End: 11-12-2024 Telephone encounter Rito Camp MD Work Phone: Administration Comment on above: Orders (Disc Request ) Start: 10-20-2024 End: 10-20-2024 Chart abstracting Rito Camp MD Work Phone: [facility] Comment on above: Outside Speech Thera py Start: 10-13-2024 End: 10-13-2024 ambulatory Mary Ann O'Humberto PT [facility] Comment on above: Pain in left hip (Pr imary Dx) Start: 10-01-2024 End: 10-01-2024 Patient encounter procedure Rito Camp MD Work Phone: [facility] Comment on above: Medicare [facility], subsequent (Primary Dx); Essential hypertension, benign; Elevated blood sugar; Asthma with COPD with exacerbation (HCC); Pulmonary emphysema, unspecified emphysema type (HCC); Ectatic thoracic aorta (HCC); GERD without esophagitis; Psychophysiological insomnia; Chronic anxiety; Manic disorder, recurrent episode, moderate (HCC); Arnold-Chiari malformation (HCC); Heavy alcohol use; Chronic bilateral low back pain with sciatica, sciatica laterality unspecified; Pain in left hip; Overactive bladder; Osteoporosis, unspecified osteoporosis type, unspecified pathological fracture presence; Herpes; Choking in adult; Advance directive discussed with patient; Screening for depression; Medication management Start: 10-01-2024 End: 10-01-2024 ambulatory RITO CAMP Facility:[facility] Start: 09-30-2024 End: 09-30-2024 Refill Rito Camp MD Work Phone: [facility] [place] Comment on above: Refill Request Start: 09-29-2024 End: 09-29-2024 ambulatory Mary Ann O'Humberto PT [facility] Comment on above: Pain in left hip (Pr imary Dx) Start: 09-24-2024 End: 09-24-2024 ambulatory RITO CAMP Facility:[facility] Start: 09-15-2024 End: 09-15-2024 Telephone encounter Rito Camp MD Work Phone: [facility] [place] Comment on above: fax copy of CT Chest to Pulmonary Dr Suleman Gustafson office Start: 09-15-2024 End: 09-15-2024 Patient encounter procedure VOLTAGE TESTER Letha Emery [facility] Work Phone: Start: 09-15-2024 End: 09-15-2024 ambulatory Letha Emery Facility:[facility] Start: 09-08-2024 End: 09-08-2024 Telephone encounter Rito Camp MD Work Phone: [facility] [place] Comment on above: Lab Orders Start: 08-13-2024 End: 08-13-2024 ambulatory Christine Parker RN [employer] [facility] [employer] Comment on above: CDM (Telephonic Outr each) Start: 08-12-2024 End: 08-12-2024 ambulatory Christine Parker RN [employer] Management Comment on above: CDM (Telephonic Outr each) Start: 08-05-2024 End: 08-07-2024 Telephone encounter Shanita Green PA-C Work Phone: [facility] [place] Comment on above: Results Start: 08-03-2024 End: 08-03-2024 Subsequent hospital visit by physician [facility] [place] Work Phone: Radiology Comment on above: Left hip pain [M25.5 52] Start: 08-03-2024 End: 08-03-2024 Patient encounter procedure Aelx Brown APRN.SENIOR INFORMATICA DEVELOPER Work Phone: [facility] [place] Comment on above: Left hip pain (Prima ry Dx) Start: 08-03-2024 End: 08-03-2024 ambulatory RITO CAMP Facility:[facility] Start: 07-31-2024 End: 07-31-2024 Subsequent hospital visit by physician [facility] [place] Work Phone: Radiology Comment on above: Acute cough [R05.1] Start: 07-31-2024 End: 07-31-2024 ambulatory RITO CAMP Facility:[facility] Start: 07-31-2024 End: 07-31-2024 Patient encounter procedure Shanna Newton APRN.SENIOR INFORMATICA DEVELOPER Work Phone: [facility] Comment on above: Acute cough (Primary Dx); Bacterial pneumonia Start: 07-27-2024 ambulatory Suleman Gustafson Facility:[facility] Start: 07-27-2024 End: 07-27-2024 ambulatory Letha Funk stella Facility:[facility] Start: 07-22-2024 End: 07-22-2024 Chart abstracting Rito Camp MD Work Phone: [facility] Comment on above: Outside Pulmonary Start: 07-21-2024 End: 07-21-2024 ambulatory Letha Emery Facility:[facility] Start: 07-16-2024 End: 07-16-2024 ambulatory Christine Parker RN [employer] Management Comment on above: CDM (Telephonic Outr each) Start: 07-02-2024 End: 07-02-2024 Telephone encounter Alex Brown APRN.SENIOR INFORMATICA DEVELOPER Work Phone: [facility] Comment on above: Results Start: 07-01-2024 End: 07-01-2024 ambulatory RITO CAMP Facility:[facility] Start: 07-01-2024 End: 07-01-2024 Subsequent hospital visit by physician Screen Mammo [facility] Comment on above: Encounter for screen ing mammogram for breast cancer [Z12.31] Start: 06-18-2024 End: 06-18-2024 ambulatory Christine Parker RN [employer] Management Comment on above: CDM (Telephonic Outr each) Start: 06-17-2024 End: 06-17-2024 ambulatory Christine Parker RN [employer] Management Comment on above: CDM (Telephonic Outr each) Start: 06-10-2024 End: 06-10-2024 Telephone encounter Rito Camp MD Work Phone: [facility] Comment on above: Medication Problem Start: 06-07-2024 End: 06-07-2024 ambulatory RITO CAMP Facility:[facility] Start: 06-07-2024 End: 06-07-2024 Patient encounter procedure Shanna John PHILLIPS.SENIOR INFORMATICA DEVELOPER Work Phone: [facility] Comment on above: Respiratory infectio n (Primary Dx) Start: 06-05-2024 End: 06-05-2024 Telephone encounter Rito Camp MD Work Phone: [facility] [place] Comment on above: Results Start: 06-05-2024 End: 06-05-2024 ambulatory RITO CAMP Facility:[facility] Start: 06-05-2024 End: 06-05-2024 Patient encounter procedure Rito Camp MD Work Phone: [facility] [place] Comment on above: Acute cystitis witho ut hematuria (Primary Dx) Start: 06-03-2024 End: 06-03-2024 ambulatory [facility] Facility:[facility] Start: 06-03-2024 End: 06-03-2024 Patient encounter procedure Mary Ann Ernst PHILLIPS.SENIOR INFORMATICA DEVELOPER Work Phone: [facility] Comment on above: Dysuria (Primary Dx) Start: 05-07-2024 End: 05-07-2024 ambulatory Christine Parker RN [employer] [facility] Management Comment on above: CDM (Telephonic Outr each) Start: 05-06-2024 End: 05-06-2024 ambulatory Christine Parker RN [employer] [facility] Management Comment on above: CDM (Telephonic Outr each) Start: 04-27-2024 End: 04-27-2024 Refill iRto Camp MD Work Phone: [facility] [place] Comment on above: Refill Request Start: 04-24-2024 End: 04-24-2024 Telephone encounter Alex Brown APRN.SENIOR INFORMATICA DEVELOPER Work Phone: [facility] [place] Comment on above: Results Start: 04-24-2024 End: 04-24-2024 ambulatory RITO CAMP Facility:[facility] Start: 04-24-2024 End: 04-24-2024 Subsequent hospital visit by physician Mri Radio [facility] (I-Stat/1.5t) Work Phone: Radiology Comment on above: Acute pain of left s le [M25.512] Start: 04-20-2024 End: 04-20-2024 Telephone encounter Rito Camp MD Work Phone: [facility] [place] Comment on above: Patient Update Start: 04-14-2024 End: 04-29-2024 Telephone encounter Alex Brown APRN.SENIOR INFORMATICA DEVELOPER Work Phone: [facility] [place] Comment on above: Results Start: 04-14-2024 End: 04-14-2024 Subsequent hospital visit by physician [facility] [place] Work Phone: Radiology Comment on above: Fall (on) (from) oth er stairs and steps, initial encounter [W10.8XXA] Start: 04-14-2024 End: 04-14-2024 Patient encounter procedure Alex Brown APRN.SENIOR INFORMATICA DEVELOPER Work Phone: [facility] [place] Comment on above: Fall (on) (from) oth er stairs and steps, initial encounter (Primary Dx); Rib pain on right side Start: 04-14-2024 End: 04-14-2024 ambulatory RITO CAMP Facility:[facility] Start: 04-07-2024 ambulatory Christine Null [facility] Management Comment on above: CDM (Telephonic Outr each) Start: 04-06-2024 ambulatory Christine Null [facility] Care Management Comment on above: CDM (Telephonic Outr each) Start: 03-26-2024 End: 03-26-2024 Patient encounter procedure Alex Brown APRN.SENIOR INFORMATICA DEVELOPER [facility] Comment on above: Fall, initial encoun ter (Primary Dx); Acute pain of left shoulder Start: 03-26-2024 End: 03-26-2024 ambulatory RITO CAMP Facility:[facility] Start: 03-18-2024 End: 03-18-2024 Subsequent hospital visit by physician [facility] [place] Work Phone: Radiology Comment on above: Pain of left clavicl e [M89.8X1] Start: 03-18-2024 End: 03-18-2024 Patient encounter procedure Sweetie Romeo PRODUCTION SAMPLER.SENIOR INFORMATICA DEVELOPER Work Phone: [facility] Comment on above: Fall, initial encoun ter (Primary Dx); Pain of left clavicle; Acute pain of left shoulder Start: 03-16-2024 Refill Rito madera MD Work Phone: [facility] Comment on above: Refill Request Start: 03-11-2024 ambulatory Christine Parker RN [facility] Management Comment on above: CDM (Telephonic Outr each) Start: 02-12-2024 ambulatory Christine Parker RN [facility] Comment on above: CDM (Telephonic Outr each) Start: 01-15-2024 ambulatory Christine Parker RN [facility] Comment on above: CDM (Telephonic Outr each) Start: 01-14-2024 ambulatory Christine Parker RN [facility] Comment on above: CDM (Telephonic Outr each) Start: 01-02-2024 Chart abstracting Rito sampson MD Work Phone: [facility] Comment on above: ext document (CT rep ort) Start: 01-01-2024 End: 01-01-[address] Rito Camp Work Phone: [facility] Work Phone: Start: 01-01-2024 End: 01-01-[address] Rito Camp Work Phone: [facility] Work Phone: Start: 12-31-2023 Telephone encounter Rito Camp MD Work Phone: [facility] Comment on above: Results Start: 12-23-2023 ambulatory Mary Ann Sherman APRN.SENIOR INFORMATICA DEVELOPER Work Phone: [facility] Comment on above: Results Start: 12-23-2023 E-mail encounter fro m caregiver Mary Ann Sherman APRN.SENIOR INFORMATICA DEVELOPER Work Phone: [facility] Start: 12-23-2023 End: 12-23-2023 Subsequent hospital visit by physician Xr [facility] Work Phone: Radiology Comment on above: URI, acute [J06.9] Start: 12-23-2023 End: 12-23-2023 Patient encounter procedure Mary Ann Sherman PRODUCTION SAMPLER.SENIOR INFORMATICA DEVELOPER Work Phone: [facility] Comment on above: URI, acute (Primary Dx); COPD with exacerbation (HCC) Start: 12-22-2023 End: 12-22-2023 Patient encounter procedure Teresa Handley PA-C Work Phone: [facility] Comment on above: COPD with exacerbati on (HCC) (Primary Dx) Start: 12-17-2023 ambulatory Christine Parker RN [facility] Management Comment on above: CDM (Telephonic Outr each) Start: 12-16-2023 ambulatory Christine Parker RN [facility] Management Comment on above: CDM (Telephonic Outr each) Start: 11-18-2023 ambulatory Christine Parker RN [facility] Management Comment on above: CDM (Telephonic Outr each) Start: 11-08-2023 Telephone encounter Rito Camp MD Work Phone: [facility] Comment on above: Patient Update; FYI- No Action Needed Start: 10-22-2023 ambulatory Christine Parker RN [facility] Comment on above: CDM (Telephonic Outr each) Start: 10-21-2023 ambulatory Christine Parker RN [facility] Management Comment on above: CDM (Telephonic Outr each) Start: 10-16-2023 Telephone encounter Shanita samuel PA-C Work Phone: [facility] Comment on above: Results Start: 10-15-2023 Telephone encounter Elana riddle PSS Radiology Comment on above: Results (Disc/Report ) Start: 10-15-2023 End: 10-15-2023 Subsequent hospital visit by physician [facility] Work Phone: Radiology Comment on above: Neck pain [M54.2] Start: 10-15-2023 End: 10-15-2023 Patient encounter procedure Shanita Green PA-C Work Phone: [facility] Comment on above: Neck pain (Primary D x); Acute pain of right shoulder Start: 10-07-2023 Refill Rito madera MD Work Phone: [facility] Comment on above: Refill Request ([facility]) Start: 10-01-2023 Patient encounter procedure Jurgen Camp MD Work Phone: [facility] Work Phone: Start: 08-22-2023 ambulatory Christine Parker RN [facility] Care Management Comment on above: CDM (Telephonic Outr each) Start: 08-15-2023 End: 08-15-2023 Subsequent hospital visit by physician [facility] Work Phone: Radiology Comment on above: Lumbar radiculopathy [M54.16] Start: 08-05-2023 End: 08-05-2023 ambulatory Jeancarlos Fraser [facility] Comment on above: 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, sciatica laterality unspecified (Primary Dx) Start: 07-29-2023 End: 07-29-2023 ambulatory Jeancarlos Fraser PT [facility] Comment on above: 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, sciatica laterality unspecified (Primary Dx) Start: 07-22-2023 ambulatory Kerrie trujillo RN Work Phone: [employer] [facility] Comment on above: CDM Telephonic Outre ach Start: 07-15-2023 End: 07-15-2023 ambulatory Jeancarlos Fraser PT [facility] Comment on above: 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, sciatica laterality unspecified (Primary Dx) Start: 06-27-2023 Refill Rito madera MD Work Phone: [facility] Comment on above: Refill Request Start: 06-21-2023 ambulatory Kerrie trujillo RN Work Phone: [employer] [facility] Comment on above: CDM Telephonic Outre ach Start: 06-20-2023 Telephone encounter Rito Camp MD Work Phone: [facility] Comment on above: Results Start: 06-11-2023 Telephone encounter Shanita samuel PA-C Work Phone: [facility] Comment on above: Results Start: 06-11-2023 End: 06-11-2023 Patient encounter procedure Toi Falcon MD Work Phone: General Surgery Comment on above: S/p small bowel obst ruction Start: 06-08-2023 End: 06-08-2023 Patient encounter procedure Rito Camp MD Work Phone: [facility] Comment on above: Bronchitis (Primary Dx); Asthma with COPD with exacerbation (HCC) ; Suspected COVID-19 virus infection Start: 06-05-2023 Telephone encounter Rito Camp MD Work Phone: [facility] [place] Comment on above: Results Start: 06-04-2023 End: 06-04-2023 Patient encounter procedure Alex Brown APRN.CNP Work Phone: [facility] Comment on above: S/p small bowel obst ruction (Primary Dx) Start: 06-03-2023 Telephone encounter Rito Camp MD Work Phone: [facility] Comment on above: Patient Update; [facility] s[facility] Of Care Start: 06-02-2023 Non-patient / Non-visit Dr. Jurgen Camp Work Phone: [facility] Work Phone: Start: 06-01-2023 Non-patient / Non-visit Dr. Jurgen Camp Work Phone: [facility] Start: 06-01-2023 Non-patient / Non-visit Dr. Jurgen Camp Work Phone: [facility] Work Phone: Start: 06-01-2023 End: 06-02-2023 Evaluation and management of inpatient Dr. Rito Camp Work Phone: [facility] Work Phone: Start: 05-14-2023 Telephone encounter Rito Camp MD Work Phone: [facility] Comment on above: Lab Orders Start: 04-17-2023 End: 04-17-[address] Rito Camp Work Phone: [facility] Work Phone: Start: 04-16-2023 Refill Rito madera MD Work Phone: [facility] Comment on above: Refill Request Start: 04-10-2023 Telephone encounter Kenn Campbell DO Work Phone: Cat Scan Comment on above: disk request Start: 03-07-2023 Telephone encounter Rito Camp MD Work Phone: [facility] Comment on above: Medication Request Start: 03-01-2023 Telephone encounter Rito Camp MD Work Phone: [facility] Comment on above: Results Start: 02-28-2023 ambulatory Kerrie trujillo RN Work Phone: [employer] [facility] Management Comment on above: CDM Telephonic Outre ach Erroneous encounter- disregard Start: 02-27-2023 Telephone encounter Shanita samuel PA-C Work Phone: [facility] Comment on above: Results Start: 02-26-2023 Chart abstracting Rito asmpson MD Work Phone: [facility] Comment on above: Outside Endocrinolog y Start: 02-26-2023 Telephone encounter Alex hawkins APRN.SENIOR INFORMATICA DEVELOPER Work Phone: [facility] Comment on above: Results Start: 02-26-2023 End: 02-26-2023 Subsequent hospital visit by physician [facility] (I-Stat) Work Phone: Cat Scan Comment on above: New onset of headach es after age 51 [R51.9] Start: 02-25-2023 End: 02-25-[address] Rito Camp Work Phone: [facility] Work Phone: Start: 02-21-2023 Telephone encounter Shanita samuel PA-C Work Phone: [facility] Comment on above: Results Start: 02-20-2023 End: 02-20-2023 Patient encounter procedure Shanita Green PA-C Work Phone: [facility] Comment on above: Psychophysiological insomnia (Primary Dx); New onset of headaches after age 51; Essential hypertension, benign; Ex-smoker Start: 02-15-2023 End: 02-15-2023 Patient encounter procedure Alex Brown APRN.CNP Work Phone: [facility] Comment on above: Psychophysiological insomnia (Primary Dx); Runny nose; New onset of headaches after age 51; Ectatic thoracic aorta (HCC) Start: 02-12-2023 End: 02-13-2023 Emergency department patient visit Dr. Rito Camp Work Phone: [facility] Work Phone: Start: 01-21-2023 End: 01-21-2023 Subsequent hospital visit by physician Ct Prep [facility] Cat Scan Start: 01-03-2023 ambulatory Ruth Denton RN Ambulato ry Care Management Comment on above: CDM (Telephonic outr each) Start: 12-31-2022 Telephone encounter Rito Camp MD Work Phone: [facility] Comment on above: Referral Information Start: 12-18-2022 End: 12-18-2022 Subsequent hospital visit by physician Xr [facility] Work Phone: Radiology Comment on above: Pain [R52] Start: 12-07-2022 ambulatory Ruth Denton RN Ambulato ry Care Management Comment on above: CDM (Telephonic outr each) Start: 12-05-2022 Refill Rito madera MD Work Phone: [facility] Comment on above: Refill Request Start: 12-04-2022 Telephone encounter Rito Camp MD Work Phone: [facility] [place] Comment on above: Results Start: 12-03-2022 End: 12-03-2022 Subsequent hospital visit by physician Us [facility] Work Phone: Radiology Comment on above: Weight loss [R63.4] Start: 11-20-2022 Telephone encounter Shanita samuel PA-C Work Phone: [facility] [place] Comment on above: Results Start: 11-19-2022 End: 11-19-2022 Patient encounter procedure Rito Camp MD Work Phone: Family [facility] [place] Comment on above: Weight loss (Primary Dx); Ex-smoker; Multiple thyroid nodules; Lung nodules; Osteoporosis, unspecified osteoporosis type, unspecified pathological fracture presence Start: 11-16-2022 Telephone encounter Rito Camp MD Work Phone: [facility] [place] Comment on above: Results Start: 11-13-2022 End: 11-13-2022 Subsequent hospital visit by physician Bone Density [facility] Work Phone: Radiology Comment on above: Osteoporosis, unspec ified osteoporosis type, unspecified pathological fracture presence [M81.0] Start: 11-12-2022 ambulatory Ruth Denton RN Ambulato ry Care Management Comment on above: CDM (Telephonic outr each) Start: 11-05-2022 Telephone encounter Rito Camp MD Work Phone: [facility] [place] Comment on above: Results Start: 09-27-2022 End: 09-27-2022 Patient encounter procedure Rito Camp MD Work Phone: [facility] [place] Comment on above: Medicare annual well ness visit, subsequent (Primary Dx); Essential hypertension, benign; Chronic anxiety; Asthma with COPD with exacerbation (HCC); Pulmonary emphysema, unspecified emphysema type (HCC); Elevated blood sugar; GERD without esophagitis; Manic disorder, recurrent episode, moderate (HCC); Psychophysiological insomnia; Heavy alcohol use; Arnold-Chiari malformation (HCC); Overactive bladder; Advance directive discussed with patient; Leukocytosis, unspecified type; Osteoporosis, unspecified osteoporosis type, unspecified pathological fracture presence Start: 09-17-2022 ambulatory Kami Hunter RN Work Phone: [employer] [facility] Comment on above: Community Monitoring Outreach (CDM) Start: 09-12-2022 Telephone encounter Rito Camp MD Work Phone: [facility] [place] Comment on above: Appointment Start: 08-27-2022 Refill Rito madera MD Work Phone: [facility] [place] Comment on above: Refill Request; Refi ll Request Start: 08-17-2022 Refill Rito madera MD Work Phone: [facility] [place] Comment on above: Refill Request Start: 08-14-2022 ambulatory Kami Hutner RN Work Phone: [facility] Start: 08-14-2022 Follow-up encounter Kami Hunter RN Work Phone: [employer] Administrator Management Comment on above: Community Monitoring Outreach (CDM Follow Up) Start: 08-01-2022 Documentation procedure Mammog deidre Coordinator [facility] Start: 08-01-2022 Letter encounter Mammography Coordinator [facility] Department Start: 07-31-2022 End: 07-31-2022 Patient encounter procedure Ashleigh Negrete APRN.CNP Work Phone: OB/Gynecology Comment on above: Encounter for gyneco logical examination (general) (routine) without abnormal findings (Primary Dx); Encounter for screening mammogram for breast cancer Start: 07-31-2022 End: 07-31-2022 Patient encounter status Ashleigh Negrete APRN.CNP Work Phone: OB/Gynecology Start: 07-31-2022 End: 07-31-2022 Subsequent hospital visit by physician Screen Mammo [facility] Comment on above: Encounter for screen ing mammogram for malignant neoplasm of breast [Z12.31] Start: 07-23-2022 ambulatory Kami Hunter RN Work Phone: [facility] Start: 07-23-2022 Follow-up encounter Kami Hunter RN Work Phone: [employer] Management Comment on above: Community Monitoring Outreach (CDM Follow Up) Start: 07-09-2022 Telephone encounter Rito Camp MD Work Phone: [facility] Comment on above: chest heaviness; Cov id Positive Results Start: 07-09-2022 End: 07-09-2022 Subsequent hospital visit by physician Xr [facility] [place] Work Phone: Radiology Comment on above: Feeling of chest tig htness [R07.89] Start: 07-09-2022 End: 07-09-2022 Patient encounter procedure Sweetie Romeo APRN.SENIOR INFORMATICA DEVELOPER Work Phone: [facility] [place] Comment on above: Feeling of chest tig htness (Primary Dx); Chest heaviness; Lab test positive for detection of COVID-19 virus; SOB (shortness of breath) Start: 07-05-2022 Telephone encounter Shanna Newton APRN.SENIOR INFORMATICA DEVELOPER Work Phone: [facility] Comment on above: Results Start: 07-04-2022 End: 07-04-2022 Patient encounter procedure Rito Sheridan APRN.SENIOR INFORMATICA DEVELOPER Work Phone: [facility] Comment on above: Suspected COVID-19 v irus infection (Primary Dx) Start: 07-02-2022 ambulatory Kami Hunter RN Work Phone: [employer] Management Comment on above: Refer / Community Re sources (CD Telephonic) Start: 06-12-2022 ambulatory Kami Hunter RN Work Phone: [employer] Comment on above: Community Monitoring Outreach (CDM Telephonic) Start: 05-28-2022 End: 05-28-2022 Patient encounter procedure Shanita Green PA-C Work Phone: [facility] Comment on above: Psychophysiological insomnia (Primary Dx); Overactive bladder Start: 05-16-2022 End: 05-16-[address] Rito Camp Work Phone: [facility] Work Phone: Start: 05-16-2022 End: 05-16-[address] Rito Camp Work Phone: [facility] Start: 05-08-2022 ambulatory Kami Hunter RN Work Phone: [facility] [place] [place] [facility] Start: 05-08-2022 Follow-up encounter Kami Hunter RN Work Phone: [employer] Management Comment on above: Community Monitoring Outreach (CDM Follow Up) Start: 05-08-2022 Telephone encounter Shanita samuel PA-C Work Phone: [facility] Comment on above: Patient Update Start: 04-30-2022 Refill Rito madera MD Work Phone: [facility] Comment on above: Refill Request Start: 04-24-2022 ambulatory Kami Hunter RN Work Phone: [facility] [place] Start: 04-24-2022 Follow-up encounter Kami Hunter RN Work Phone: [employer] Management Comment on above: Community Monitoring Outreach (CDM Telephonic Follow Up) Start: 04-23-2022 ambulatory Kami Hunter RN Work Phone: [facility] [place] Start: 04-23-2022 Follow-up encounter Kami Hunter RN Work Phone: [employer] Comment on above: Community Monitoring Outreach (CDM Telephonic Follow Up) Start: 04-16-2022 End: 04-16-[address] [facility] Start: 04-11-2022 ambulatory Toi Power RN NURSE ENVIRONMENTAL HEALTH AND SAFETY INTERN Comment on above: Medication Question Start: 04-10-2022 ambulatory Kami Hunter RN Work Phone: [facility] [place] [place] Start: 04-10-2022 Follow-up encounter Kami Hunter RN Work Phone: [employer] Comment on above: Community Monitoring Outreach (Follow Up) Start: 04-03-2022 ambulatory Kami Hunter RN Work Phone: [facility] [place] [place] Start: 04-03-2022 Follow-up encounter Kami Hunter RN Work Phone: [employer] Comment on above: Community Monitoring Outreach (Telephonic Follow Up) Start: 03-30-2022 Telephone encounter Shanita samuel PA-C Work Phone: [facility] [place] Comment on above: Results Start: 03-29-2022 End: 03-29-2022 Subsequent hospital visit by physician [facility] Work Phone: Radiology Comment on above: Enlarged uterus [N85 .2] Start: 03-26-2022 Telephone encounter Shanita samuel PA-C Work Phone: [facility] [place] Comment on above: Results Start: 03-23-2022 End: 03-23-2022 Subsequent hospital visit by physician [facility] [place] Work Phone: Radiology Comment on above: Partial intestinal o bstruction, unspecified cause (HCC) [K56.600] Start: 03-23-2022 End: 03-23-2022 Patient encounter procedure Shanita Green PA-C Work Phone: [facility] [place] Comment on above: Partial intestinal o bstruction, unspecified cause (HCC) (Primary Dx); Enlarged uterus; Lower abdominal pain; Bruising Start: 03-21-2022 ambulatory Kami Hunter RN Work Phone: [facility] Start: 03-21-2022 Follow-up encounter Kami Hunter RN Work Phone: [employer] Comment on above: Community Monitoring Outreach (Telephonic Follow Up) Start: 03-20-2022 ambulatory Kami Hunter RN Work Phone: [facility] Start: 03-20-2022 Follow-up encounter Kami Hunter RN Work Phone: [employer] Comment on above: Community Monitoring Outreach (Telephonic Follow Up) Start: 03-18-2022 Non-patient / Non-visit Dr. Jurgen Camp Work Phone: [facility] Phys[facility] Start: 03-18-2022 Non-patient / Non-visit Dr. Jurgen Camp Work Phone: [facility] Start: 03-17-2022 End: 03-18-2022 Evaluation and management of inpatient Dr. Rito Camp Work Phone: [facility] Start: 03-14-2022 End: 03-14-2022 Subsequent hospital visit by physician Xr [facility] Work Phone: Radiology Comment on above: Coccyx pain [M53.3] Start: 03-14-2022 End: 03-14-2022 Patient encounter procedure Bernard Elliott MD Work Phone: [facility] Comment on above: Coccyx pain (Primary Dx) Start: 03-06-2022 ambulatory Kami Hunter RN Work Phone: [facility] Start: 03-06-2022 Follow-up encounter Kami Hunter RN Work Phone: [employer] Management Comment on above: Community Monitoring Outreach (Telephonic Follow Up) Start: 03-02-2022 ambulatory Kami Hunter RN Work Phone: [facility] [place] Start: 03-02-2022 Follow-up encounter Kami Hunter RN Work Phone: [employer] Comment on above: Community Monitoring Outreach (Telephonic Follow Up) Start: 02-15-2022 ambulatory Kami Hunter RN Work Phone: [facility] Start: 02-15-2022 Follow-up encounter Kami Hunter RN Work Phone: [employer] Comment on above: Community Monitoring Outreach (Telephonic Follow Up) Start: 02-01-2022 ambulatory Kami Hunter RN Work Phone: [facility] Start: 02-01-2022 Follow-up encounter Kami Hunter RN Work Phone: [employer] Comment on above: Community Monitoring Outreach (Telephonic Follow Up) Start: 01-15-2022 ambulatory Kami Hunter RN Work Phone: [facility] Start: 01-15-2022 Follow-up encounter Kami Hunter RN Work Phone: [employer] Management Comment on above: Community Monitoring Outreach (Telephonic Follow Up) Start: 01-10-2022 Telephone encounter Rito Camp MD Work Phone: [facility] [place] Comment on above: Patient Update Start: 01-10-2022 End: 01-10-2022 Patient encounter procedure Shanna John PHILLIPS.SENIOR INFORMATICA DEVELOPER Work Phone: [facility] Comment on above: Cough (Primary Dx) Start: 01-02-2022 ambulatory Kami Hunter RN Work Phone: [facility] Start: 01-02-2022 Follow-up encounter Kami Hunter RN Work Phone: [employer] Comment on above: Community Monitoring Outreach (Telephonic Follow Up) Start: 12-25-2021 Telephone encounter Shanita samuel PA-C Work Phone: [facility] [place] Comment on above: Results Start: 12-22-2021 Telephone encounter Rito Camp MD Work Phone: [facility] [place] Comment on above: Returning Patient's Call Start: 12-20-2021 Telephone encounter Shanita samuel PA-C Work Phone: [facility] Comment on above: Results Start: 12-19-2021 End: 12-19-2021 Patient encounter procedure Shanita Green PA-C Work Phone: [facility] Comment on above: Brittle nails (Prima ry Dx) Start: 12-18-2021 ambulatory Kami Hunter RN [facility] Start: 12-18-2021 Follow-up encounter Kami Hunter RN [employer] Comment on above: Community Monitoring Outreach (Telephonic Follow Up) Start: 12-11-2021 Non-patient / Non-visit Dr. Jurgen Camp Work Phone: [facility] Start: 12-11-2021 End: 12-11-[address] Rito Camp Work Phone: [facility] Start: 12-04-2021 ambulatory Kami Hunter RN [facility] [employer] Start: 12-04-2021 Follow-up encounter Kami Hunter RN [employer] Comment on above: Community Monitoring Outreach (Telephonic Follow Up) Start: 01-27-2021 Patient encounter procedure Josh Hunter RN [facility] Work Phone: Start: 12-27-2020 End: 12-27-2020 Subsequent hospital visit by physician Xr [facility] Work Phone: Radiology Comment on above: Suspected COVID-19 v irus infection [Z20.822] Start: 12-17-2020 End: 12-17-2020 Subsequent hospital visit by physician [facility]r [facility] Work Phone: Radiology Comment on above: Hip pain, acute, lef t [M25.552] Start: 07-23-2020 End: 07-23-2020 Subsequent hospital visit by physician Xr [facility] Work Phone: Radiology Comment on above: Pneumonia due to COV ID-19 virus [U07.1, J12.89] Procedures Date Procedure Procedure Detail Performing Clinician Start: 01-05-2025 Radex foot complete minimum 3 views Shanita Green PA-C Work Phone: Start: 01-01-[address] Jake Camp MD Work Phone: Start: 12-28-2024 BD DXA TRABECULAR MASON NE SCORE (TBS) Rito Camp MD Work Phone: Start: 12-28-2024 Dxa bone density jaron dy 1/> sites axial skel Rito Camp MD Work Phone: Start: 11-24-[address] Jake Camp MD Work Phone: Start: 10-01-2024 Adult depression scr eening assessment Rito Camp MD Work Phone: Start: 09-24-2024 Lipid 1996 panel - S mary jo or Plasma Mary Ann Nguyen'Humberto PT Start: 07-31-2024 Radiologic exam ches t 2 views Shanna Newton PRODUCTION SAMPLER.SENIOR INFORMATICA DEVELOPER Work Phone: Start: 06-05-2024 Urnls dip stick/tabl et rgnt auto w/o microscopy Rito Camp MD Work Phone: Start: 06-03-2024 Urnls dip stick/tabl et rgnt auto w/o microscopy Rito Sheridan PRODUCTION SAMPLER.SENIOR INFORMATICA DEVELOPER Work Phone: Start: 04-24-2024 Mri any jt upper ext remity w/o contrast matrl Alex Brown PRODUCTION SAMPLER.SENIOR INFORMATICA DEVELOPER Work Phone: Start: 04-14-2024 Radiologic exam ches t 2 views Alex Brown PRODUCTION SAMPLER.SENIOR INFORMATICA DEVELOPER Work Phone: Start: 03-18-2024 Radex clavicle complete Sweetie Romeo PRODUCTION SAMPLER.SENIOR INFORMATICA DEVELOPER Work Phone: Start: 01-01-[address] Jake Camp Work Phone: Start: 12-23-2023 Radiologic exam ches t 2 views Mary Ann [place] PRODUCTION SAMPLER.SENIOR INFORMATICA DEVELOPER Work Phone: Start: 12-23-2023 COVID & INFLUENZA A/ B & RSV NAAT, ROUTINE Mary Ann [place] PRODUCTION SAMPLER.SENIOR INFORMATICA DEVELOPER Work Phone: Start: 10-15-2023 Radex spine cervical 4 or 5 views Shanita Green PA-C Work Phone: Start: 09-23-2023 Lipid 1995 panel - S mary jo or Plasma Rito Camp MD Work Phone: Start: 08-15-2023 Radex hips bilateral with pelvis minimum 5 views Alex Brown PRODUCTION SAMPLER.SENIOR INFORMATICA DEVELOPER Work Phone: Start: 06-01-[address] Rito Camp Work Phone: Start: 06-01-2023 Plain X-ray abdomen Dr. Rito Camp Work Phone: Start: 06-01-2023 Plain X-ray abdomen Dr. Rito Camp Work Phone: Start: 05-31-2023 CT of abdomen and pe lvis without contrast Dr. Rito Camp Work Phone: Start: 02-26-2023 Ct angiography head w/contrast/noncontrast Alex Brown PRODUCTION SAMPLER.SENIOR INFORMATICA DEVELOPER Work Phone: Start: 12-18-2022 Radex wrist complete minimum 3 views Shanna Newton PRODUCTION SAMPLER.SENIOR INFORMATICA DEVELOPER Work Phone: Start: 12-03-2022 Us abdominal real ti me w/image documentation Rito Camp MD Work Phone: Start: 12-03-2022 Ct thorax w/o contra st material Rito Camp MD Work Phone: Start: 11-13-2022 Dxa bone density jaron dy 1/> sites axial skel Rito Camp MD Work Phone: Start: 09-15-2022 Lipid 1996 panel - S mary jo or Plasma Rito Camp MD Work Phone: Start: 07-31-2022 End: 07-31-2022 Mammography Ashleigh Negrete PRODUCTION SAMPLER.SENIOR INFORMATICA DEVELOPER Work Phone: Start: 07-09-2022 Ecg routine ecg w/le ast 12 lds i&r only [facility] Provider Start: 07-09-2022 Radiologic exam ches t 2 views Sweetie Romeo PRODUCTION SAMPLER.SENIOR INFORMATICA DEVELOPER Work Phone: Start: 05-16-[address] Jake Camp Work Phone: Start: 03-29-2022 Us transvaginal Shanita ALCANTARAC Work Phone: Start: 03-23-2022 Radiologic exam abdo men 1 view Shanita Green PA-C Work Phone: Start: 03-18-[address] Rito Camp Work Phone: Start: 03-18-2022 Plain X-ray abdomen Dr. Rito Camp Work Phone: Start: 03-17-2022 Plain X-ray abdomen Dr. Rito Cmap Work Phone: Start: 03-17-2022 Computed tomography of abdomen and pelvis with intravenous contrast Dr. Rito Camp Work Phone: Start: 03-14-2022 Radex sacrum & coccy x minimum 2 views Bernard Elliott MD Work Phone: Start: 07-25-2021 Mammography Kami riojas RN Start: 12-27-2020 Radiologic exam ches t 2 views Will Kidd PRODUCTION SAMPLER.SENIOR INFORMATICA DEVELOPER Work Phone: Start: 12-17-2020 Radex hip unilateral with pelvis 2-3 views Cathleen Mckee APRN.SENIOR INFORMATICA DEVELOPER Work Phone: Start: 07-23-2020 Radiologic exam ches t 2 views Darvin Gold MD Start: 06-27-2016 Colonoscopy Kami riojas RN Plan of Treatment Date Care Activity Detail Author Start: 09-24-2029 Lipid panel Lipid Screening [facility] Start: 12-18-2028 Urine microalbumin profile [facility] Start: 09-23-2028 Lipid panel Lipid Screening [facility] Start: 09-24-2027 Diabetes Screening Diabetes Screenin g [facility] Start: 09-15-2027 Lipid 1996 panel - S mary jo or Plasma Lipid Screening [facility] Start: 09-15-2027 Lipid panel Lipid Screening [facility] Start: 09-15-2027 LIPID SCREEN LIPID SCREEN [facility] Start: 12-28-2026 Screening for osteoporosis Bone Dens ity Screening [facility] Start: 09-23-2026 Diabetes Screening Diabetes Screenin g [facility] Start: 09-21-2026 LIPID SCREEN LIPID SCREEN [facility] Start: 06-27-2026 Colonoscopy COLONOSCOPY [facility] Start: 06-27-2026 COLORECTAL CANCER SCREENING COLORECTAL CANCER SCREENING [facility] Start: 06-27-2026 Screening for malign ant neoplasm of colon [facility] Start: 03-15-2026 Annual PCP Team [employer] Teacher dontae Disease Visit Annual PCP Team Chronic Disease Visit [facility] Start: 02-20-2026 DIABETES SCREEN DIABETES SCREEN [facility] Start: 02-20-2026 Diabetes Screening Diabetes Screenin g [facility] Start: 01-05-2026 Annual PCP Team [employer] Teacher dontae Disease Visit Annual PCP Team Chronic Disease Visit [facility] Start: 10-01-2025 Annual PCP Team [employer] Teacher dontae Disease Visit Annual PCP Team Chronic Disease Visit [facility] Start: 10-01-2025 BP Controlled (<130/80) BP Controlle d (<130/80) [facility] Start: 10-01-2025 Depression Screening Depression Scre ening [facility] Start: 09-20-2025 End: 09-20-2025 Patient encounter procedure 09/20/2025 10:00 AM EST Office Visit [facility] [place] [address] [place] [address] Rito Camp MD [address] [place] [address] [place] [address] Medicare Wellness [facility] [place] Comment on above: Medicare Wellness Start: 09-15-2025 [facility] Start: 09-02-2025 End: 12-02-2025 25-hydroxyvitamin D3 [Mass/volume] in Serum or Plasma VITAMIN D 25 HYDROXY Lab Routine Osteoporosis, unspecified osteoporosis type, unspecified pathological fracture presence Expected: 09/02/2025, Expires: 12/02/2025 [facility] Comment on above: Expected: 09/02/2025 , Expires: 12/02/2025 Start: 09-02-2025 End: 12-02-2025 CBC W Auto Differential panel - Blood COMPLETE BLOOD COUNT AND DIFFERENTIAL Lab Routine GERD without esophagitis Heavy alcohol use Medication management Expected: 09/02/2025, Expires: 12/02/2025 [facility] Comment on above: Expected: 09/02/2025 , Expires: 12/02/2025 Start: 09-02-2025 End: 12-02-2025 Cobalamin (Vitamin B12) [Mass/volume] in Serum or Plasma VITAMIN B12 Lab Routine GERD without esophagitis Medication management Expected: 09/02/2025, Expires: 12/02/2025 [facility] Comment on above: Expected: 09/02/2025 , Expires: 12/02/2025 Start: 09-02-2025 End: 12-02-2025 Comprehensive metabolic 2000 panel - Serum or Plasma COMPREHENSIVE METABOLIC PANEL Lab Routine Essential hypertension, benign Elevated blood sugar Expected: 09/02/2025, Expires: 12/02/2025 [facility] Comment on above: Expected: 09/02/2025 , Expires: 12/02/2025 Start: 09-02-2025 End: 12-02-2025 Folate [Mass/volume] in Serum or Plasma FOLATE, SERUM Lab Routine Heavy alcohol use Medication management Expected: 09/02/2025, Expires: 12/02/2025 [facility] Comment on above: Expected: 09/02/2025 , Expires: 12/02/2025 Start: 09-02-2025 End: 12-02-2025 Hemoglobin A1c in Blood HEMOGLOBIN A1C Lab Routine Elevated blood sugar Expected: 09/02/2025, Expires: 12/02/2025 [facility] Comment on above: Expected: 09/02/2025 , Expires: 12/02/2025 Start: 09-02-2025 End: 12-02-2025 Iron and Iron binding capacity panel - Serum or Plasma IRON AND TIBC Lab Routine Heavy alcohol use Medication management Expected: 09/02/2025, Expires: 12/02/2025 [facility] Comment on above: Expected: 09/02/2025 , Expires: 12/02/2025 Start: 09-02-2025 End: 12-02-2025 LIPID PANEL, NONFASTING LIPID PANEL, NONFASTING Lab Routine Essential hypertension, benign Expected: 09/02/2025, Expires: 12/02/2025 [facility] Comment on above: Expected: 09/02/2025 , Expires: 12/02/2025 Start: 09-02-2025 End: 12-02-2025 Magnesium [Mass/volume] in Serum or Plasma MAGNESIUM Lab Routine GERD without esophagitis Medication management Expected: 09/02/2025, Expires: 12/02/2025 [facility] Comment on above: Expected: 09/02/2025 , Expires: 12/02/2025 Start: 09-02-2025 End: 12-02-2025 Thyrotropin [Units/volume] in Serum or Plasma THYROID STIMULATING HORMONE Lab Routine Chronic anxiety Medication management Expected: 09/02/2025, Expires: 12/02/2025 [facility] Comment on above: Expected: 09/02/2025 , Expires: 12/02/2025 Start: 09-02-2025 End: 12-02-2025 Urinalysis complete panel - Urine URINALYSIS, WITH MICROSCOPIC Lab Routine Essential hypertension, benign Expected: 09/02/2025, Expires: 12/02/2025 [facility] Comment on above: Expected: 09/02/2025 , Expires: 12/02/2025 Start: 08-03-2025 Annual PCP Team [employer] Teacher dontae Disease Visit Annual PCP Team Chronic Disease Visit [facility] Start: 07-01-2025 Screening for malign ant neoplasm of breast Mammogram Screening [facility] Start: 06-05-2025 Annual PCP Team [employer] Teacher dontae Disease Visit Annual PCP Team Chronic Disease Visit [facility] Start: 05-03-2025 Influenza vaccination Influenza Vacc ine (#1) [facility] Start: 04-14-2025 Annual PCP Team [employer] Teacher dontae Disease Visit Annual PCP Team Chronic Disease Visit [facility] Start: 03-26-2025 Annual PCP Team [employer] Teacher dontae Disease Visit Annual PCP Team Chronic Disease Visit [facility] Start: 03-24-2025 End: 03-24-2025 Patient encounter procedure 03/24/2025 9:40 AM EDT Office Visit [facility] [place] [address] [place] [address] Shanita Green PA-C [address] [place] [address] go over lab work [facility] Comment on above: go over lab work Start: 03-18-2025 Annual PCP Team [employer] Teacher dontae Disease Visit Annual PCP Team Chronic Disease Visit [facility] Start: 03-15-2025 End: 06-14-2025 HYPERCOAG DIAG [facility] Work Phone: Comment on above: Expected: 03/15/2025 , Expires: 06/14/2025 Start: 02-03-2025 End: 02-03-2025 Patient encounter procedure 02/03/2025 9:40 AM EDT Office Visit [facility] [address] [place] [address] Shanita Green PA-C [address] [place] [address] routine ov [facility] Comment on above: routine ov Start: 01-21-2025 End: 01-21-2025 Patient encounter procedure 01/21/2025 10:30 AM EDT Office Visit Cardiology [address] [place] [address] Ectatic thoracic aorta [I77.810] Cardiology Comment on above: Ectatic thoracic aor ta [I77.810] Start: 12-28-2024 End: 12-28-2024 Patient encounter procedure 12/28/2024 8:55 AM EDT Appointment Radiology [address] [place] [id number] Osteoporosis, unspecified osteoporosis type, unspecified pathological fracture presence [M81.0] Radiology Comment on above: Osteoporosis, unspec ified osteoporosis type, unspecified pathological fracture presence [M81.0] Start: 12-08-2024 End: 12-08-2024 Patient encounter procedure [facility] [place] Comment on above: Insomnia/Hip pain. 2 month follow up Start: 11-19-2024 End: 11-19-2024 Patient encounter procedure 11/19/2024 11:15 AM EDT Appointment Radiology [address] [place] [address] M81.0 (ICD-10-CM) - Osteoporosis, unspecified osteoporosis type, unspecified pathological fracture presence Radiology Comment on above: M81.0 (ICD-10-CM) - Osteoporosis, unspecified osteoporosis type, unspecified pathological fracture presence Start: 11-13-2024 Screening for osteoporosis Bone Dens ity Screening [facility] Start: 10-29-2024 End: 10-29-2024 Patient encounter procedure 10/29/2024 11:15 AM EST Appointment Radiology [address] [place] [id number] M81.0 (ICD-10-CM) - Osteoporosis, unspecified osteoporosis type, unspecified pathological fracture presence Radiology Comment on above: M81.0 (ICD-10-CM) - Osteoporosis, unspecified osteoporosis type, unspecified pathological fracture presence Start: 10-27-2024 End: 10-27-2024 ambulatory 10/27/2024 10:30 AM EST OT/PT/Speech Visit [facility] [address] [place] [address] O'HumbertoMary Ann ernandez, PT Pain in left hip [M25.552] [facility] Comment on above: Pain in left hip [M2 5.552] Start: 10-21-2024 End: 10-21-2024 ambulatory 10/21/2024 9:45 AM EST OT/PT/Speech Visit [facility] [address] [place] [address] O'HumbertoMary Ann, PT Pain in left hip [M25.552] [facility] Comment on above: Pain in left hip [M2 5.552] Start: 10-15-2024 Annual PCP Team [employer] Teacher dontae Disease Visit Annual PCP Team Chronic Disease Visit [facility] Start: 10-13-2024 End: 10-13-2024 ambulatory 10/13/2024 10:30 AM EST OT/PT/Speech Visit [facility] [address] [place] [address] O'Mary Ann Paul, PT Pain in left hip [M25.552] [facility] Comment on above: Pain in left hip [M2 5.552] Start: 10-09-2024 End: 10-09-2024 ambulatory 10/09/2024 10:00 AM EST OT/PT/Speech Visit [facility] [address] [place] [address] Wendy'Mary Ann Paul, PT Pain in left hip [M25.552] [facility] Comment on above: Pain in left hip [M2 5.552] Start: 10-01-2024 Annual PCP Team [employer] Teacher dontae Disease Visit Annual PCP Team Chronic Disease Visit [facility] Start: 10-01-2024 RSV Vaccine (1 - 1-d ose 60+ series) RSV Vaccine (1 - 1-dose 60+ series) [facility] Comment on above: Postponed from 03/10 (Insurance Coverage) Start: 10-01-2024 End: 10-01-2024 Patient encounter procedure 10/01/2024 10:00 AM EST Office Visit [facility] [place] [address] [place] [address] Rito Camp MD [address] [facility] [place] [address] Medicare wellness [facility] [place] Comment on above: Medicare wellness Start: 09-24-2024 End: 09-24-2024 ambulatory 09/24/2024 10:15 AM EST Results Only [facility] [address] [place] [address] fasting lab work [facility] Comment on above: fasting lab work Start: 09-23-2024 End: 09-23-2024 ambulatory 09/23/2024 10:15 AM EST Results Only [facility] [address] [place] [address] [facility] Start: 09-21-2024 DIABETES SCREEN DIABETES SCREEN [facility] Start: 09-17-2024 End: 09-17-2024 ambulatory 09/17/2024 10:15 AM EST OT/PT/Speech Visit [facility] [address] [place] [address] OMary Ann Maher, PT Left hip pain [M25.552] [facility] Comment on above: Left hip pain [M25.5 52] Start: 09-08-2024 End: 12-08-2024 25-hydroxyvitamin D3 [Mass/volume] in Serum or Plasma VITAMIN D 25 HYDROXY Lab Routine Osteoporosis, unspecified osteoporosis type, unspecified pathological fracture presence Expected: 09/08/2024, Expires: 12/08/2024 [facility] Comment on above: Expected: 09/08/2024 , Expires: 12/08/2024 Start: 09-08-2024 End: 12-08-2024 CBC W Auto Differential panel - Blood COMPLETE BLOOD COUNT AND DIFFERENTIAL Lab Routine Essential hypertension, benign Expected: 09/08/2024, Expires: 12/08/2024 [facility] Comment on above: Expected: 09/08/2024 , Expires: 12/08/2024 Start: 09-08-2024 End: 12-08-2024 Cobalamin (Vitamin B12) [Mass/volume] in Serum or Plasma VITAMIN B12 Lab Routine Heavy alcohol use Medication management Expected: 09/08/2024, Expires: 12/08/2024 [facility] Work Phone: Comment on above: Expected: 09/08/2024 , Expires: 12/08/2024 Start: 09-08-2024 End: 12-08-2024 Comprehensive metabolic 2000 panel - Serum or Plasma COMPREHENSIVE METABOLIC PANEL Lab Routine Elevated blood sugar Expected: 09/08/2024, Expires: 12/08/2024 [facility] Comment on above: Expected: 09/08/2024 , Expires: 12/08/2024 Start: 09-08-2024 End: 12-08-2024 Hemoglobin A1c in Blood HEMOGLOBIN A1C Lab Routine Elevated blood sugar Expected: 09/08/2024, Expires: 12/08/2024 [facility] Comment on above: Expected: 09/08/2024 , Expires: 12/08/2024 Start: 09-08-2024 End: 12-08-2024 Iron and Iron binding capacity panel - Serum or Plasma IRON AND TIBC Lab Routine Heavy alcohol use Medication management Expected: 09/08/2024, Expires: 12/08/2024 [facility] Comment on above: Expected: 09/08/2024 , Expires: 12/08/2024 Start: 09-08-2024 End: 12-08-2024 LIPID PANEL, NONFASTING LIPID PANEL, NONFASTING Lab Routine Essential hypertension, benign Expected: 09/08/2024, Expires: 12/08/2024 [facility] Comment on above: Expected: 09/08/2024 , Expires: 12/08/2024 Start: 09-08-2024 End: 12-08-2024 Magnesium [Mass/volume] in Serum or Plasma MAGNESIUM Lab Routine Medication management Expected: 09/08/2024, Expires: 12/08/2024 [facility] Comment on above: Expected: 09/08/2024 , Expires: 12/08/2024 Start: 09-08-2024 End: 12-08-2024 Thyrotropin [Units/volume] in Serum or Plasma THYROID STIMULATING HORMONE Lab Routine Multiple thyroid nodules Expected: 09/08/2024, Expires: 12/08/2024 [facility] Comment on above: Expected: 09/08/2024 , Expires: 12/08/2024 Start: 09-08-2024 End: 12-08-2024 Urinalysis complete panel - Urine URINALYSIS, WITH MICROSCOPIC Lab Routine Elevated blood sugar Expected: 09/08/2024, Expires: 12/08/2024 [facility] Comment on above: Expected: 09/08/2024 , Expires: 12/08/2024 Start: 09-02-2024 Advance Directive Discussion Advance Directive Discussion [facility] Start: 08-31-2024 End: 08-31-2024 ambulatory 08/31/2024 9:00 AM EST OT/PT/Speech Visit [place] Physical Therapy [address] [place] [address] Jeancarlso Fraser PT My left side has been hurting for over 2 weeks [facility] Comment on above: My left side has bee n hurting for over 2 weeks Start: 08-15-2024 Annual PCP Team Jeramie hall Disease Visit Annual PCP Team Chronic Disease Visit [facility] Start: 08-03-2024 End: 08-03-2024 Patient encounter procedure 08/03/2024 9:20 AM EST Office Visit Family [facility] [address] [place] [address] Alex Brown APRN.SENIOR INFORMATICA DEVELOPER [address] [place] [address] pain in left side constant x2 weeks [facility] [employer] Comment on above: pain in left side co nstant x2 weeks Start: 06-23-2024 End: 06-23-2024 Patient encounter procedure 06/23/2024 9:10 AM EDT Appointment Mammogram [address] [place], [place] [id number] screening mammogram Mammogram Comment on above: screening mammogram Start: 06-18-2024 End: 06-18-2024 Patient encounter procedure 06/18/2024 10:10 AM EDT Appointment Mammogram [address] [place], [place] [id number] screening mammogram Mammogram Comment on above: screening mammogram Start: 06-16-2024 End: 06-16-2024 ambulatory 06/16/2024 10:00 AM EDT OT/PT/Speech Visit [facility] [address] [place] [address] Jeancarlos Fraser PT Tendinopathy of rotator cuff, unspecified laterality [M67.919] [facility] Comment on above: Tendinopathy of rota tor cuff, unspecified laterality [M67.919] Start: 06-11-2024 BP Controlled (<130/80) BP Controlle d (<130/80) [facility] Start: 06-11-2024 Mammography Mammogram Screening [facility] Start: 06-11-2024 Screening for malign ant neoplasm of breast Mammogram Screening [facility] Start: 06-08-2024 Annual PCP Team [employer] Teacher dontae Disease Visit Annual PCP Team Chronic Disease Visit [facility] Start: 06-04-2024 Annual PCP Team Eth[employer] Teacher dontae Disease Visit Annual PCP Team Chronic Disease Visit [facility] Start: 05-27-2024 End: 05-27-2024 ambulatory 05/27/2024 10:45 AM EDT OT/PT/Speech Visit [facility] [address] [place] [address] Josué Elder, PT [address] [place] [address] SHOULDER PAIN [facility] Comment on above: SHOULDER PAIN Start: 05-19-2024 PNEUMOVAX AGE 65 AND OVER WITH 5YR LOOKBACK (#1) PNEUMOVAX AGE 65 AND OVER WITH 5YR LOOKBACK (#1) [facility] Start: 05-14-2024 Annual PCP Team [employer] Teacher dontae Disease Visit Annual PCP Team Chronic Disease Visit [facility] Start: 05-03-2024 Influenza vaccination Influenza Vacc ine (#1) [facility] Start: 04-24-2024 End: 04-24-2024 Patient encounter procedure 04/24/2024 9:20 AM EDT Appointment Radiology [address] [place] [address] Fall, initial encounter [W19.XXXA] Radiology Comment on above: Fall, initial encoun ter [W19.XXXA] Start: 02-21-2024 ANNUAL PCP TEAM CREATIVE/ART DIRECTOR DONTAE DISEASE VISIT ANNUAL PCP TEAM CHRONIC DISEASE VISIT [facility] Start: 02-16-2024 ANNUAL PCP TEAM CREATIVE/ART DIRECTOR DONTAE DISEASE VISIT ANNUAL PCP TEAM CHRONIC DISEASE VISIT [facility] Start: 12-31-2023 End: 12-31-2023 Patient encounter procedure 12/31/2023 10:30 AM EDT Office Visit Cardiology [address] [place] [address] Ectatic thoracic aorta (HCC) [I77.810] Cardiology Comment on above: Ectatic thoracic aor ta (HCC) [I77.810] Start: 12-19-2023 BP CONTROLLED (<130/80) BP CONTROLLE D (<130/80) [facility] Start: 11-20-2023 ANNUAL PCP TEAM CREATIVE/ART DIRECTOR DONTAE DISEASE VISIT ANNUAL PCP TEAM CHRONIC DISEASE VISIT [facility] Start: 11-20-2023 BP CONTROLLED (<130/80) BP CONTROLLE D (<130/80) [facility] Start: 09-27-2023 ANNUAL PCP TEAM CREATIVE/ART DIRECTOR DONTAE DISEASE VISIT ANNUAL PCP TEAM CHRONIC DISEASE VISIT [facility] Start: 09-20-2023 End: 11-20-2023 CBC W Auto Differential panel - Blood CBC + DIFF Lab Routine Medication management Expected: 09/20/2023, Expires: 11/20/2023 [facility] Work Phone: Comment on above: Expected: 09/20/2023 , Expires: 11/20/2023 Start: 09-20-2023 End: 11-20-2023 Cobalamin (Vitamin B12) [Mass/volume] in Serum or Plasma VITAMIN B12 BLOOD Lab Routine Medication management GERD without esophagitis Expected: 09/20/2023, Expires: 11/20/2023 [facility] Work Phone: Comment on above: Expected: 09/20/2023 , Expires: 11/20/2023 Start: 09-20-2023 End: 11-20-2023 Comprehensive metabolic 2000 panel - Serum or Plasma COMP METABOLIC PANEL Lab Routine Essential hypertension, benign Expected: 09/20/2023, Expires: 11/20/2023 [facility] Work Phone: Comment on above: Expected: 09/20/2023 , Expires: 11/20/2023 Start: 09-20-2023 End: 11-20-2023 Hemoglobin A1c in Blood HGB A1C Lab Routine Elevated blood sugar Expected: 09/20/2023, Expires: 11/20/2023 [facility] Work Phone: Comment on above: Expected: 09/20/2023 , Expires: 11/20/2023 Start: 09-20-2023 End: 11-20-2023 LIPID PANEL, NONFASTING LIPID PANEL, NONFASTING Lab Routine Essential hypertension, benign Expected: 09/20/2023, Expires: 11/20/2023 [facility] Work Phone: Comment on above: Expected: 09/20/2023 , Expires: 11/20/2023 Start: 09-20-2023 End: 11-20-2023 Magnesium [Mass/volume] in Serum or Plasma MAGNESIUM BLD Lab Routine Medication management GERD without esophagitis Expected: 09/20/2023, Expires: 11/20/2023 [facility] Work Phone: Comment on above: Expected: 09/20/2023 , Expires: 11/20/2023 Start: 09-20-2023 End: 11-20-2023 Thyrotropin [Units/volume] in Serum or Plasma TSH BLD Lab Routine Multiple thyroid nodules Expected: 09/20/2023, Expires: 11/20/2023 [facility] Work Phone: Comment on above: Expected: 09/20/2023 , Expires: 11/20/2023 Start: 09-20-2023 End: 11-20-2023 Urinalysis complete panel - Urine URINALYSIS, WITH MICROSCOPIC Lab Routine Essential hypertension, benign Expected: 09/20/2023, Expires: 11/20/2023 [facility] Work Phone: Comment on above: Expected: 09/20/2023 , Expires: 11/20/2023 Start: 09-02-2023 Behavioral Health Screening Behavioral Health Screening [facility] Start: 07-31-2023 BP CONTROLLED (<130/80) BP CONTROLLE D (<130/80) [facility] Start: 07-31-2023 Mammography [facility] Start: 07-09-2023 ANNUAL PCP TEAM CREATIVE/ART DIRECTOR DONTAE DISEASE VISIT ANNUAL PCP TEAM CHRONIC DISEASE VISIT [facility] Start: 07-09-2023 BP CONTROLLED (<130/80) BP CONTROLLE D (<130/80) [facility] Start: 06-06-2023 End: 08-06-2023 CBC W Auto Differential panel - Blood CBC + DIFF Lab Routine Leukocytosis, unspecified type Expected: 06/06/2023, Expires: 08/06/2023 [facility] Work Phone: Comment on above: Expected: 06/06/2023 , Expires: 08/06/2023 Start: 06-02-2023 End: 06-02-2023 [facility] Start: 06-02-2023 Patient discharge [facility] Start: 06-01-2023 [facility] Start: 06-01-2023 Blood chemistry [facility] Start: 06-01-2023 Application of intermittent pneumatic compression device [facility] Start: 06-01-2023 Following clinical p athway protocol [facility] Start: 06-01-2023 Assessment of risk o f venous thromboembolism [facility] Start: 06-01-2023 Documentation procedure [facility] Start: 06-01-2023 Insertion of cathete r into peripheral vein [facility] Start: 06-01-2023 Insertion of nasogas tric tube [facility] Start: 06-01-2023 Oxygen therapy [facility] Start: 06-01-2023 Providing care accor ding to standard [facility] Start: 06-01-2023 Referral to general surgeon [facility] Start: 06-01-2023 End: 06-01-2023 [facility] Start: 06-01-2023 Verification routine [facility] Start: 06-01-[address] [facility] Start: 05-28-2023 ANNUAL PCP TEAM CREATIVE/ART DIRECTOR DONTAE DISEASE VISIT ANNUAL PCP TEAM CHRONIC DISEASE VISIT [facility] Start: 05-28-2023 BP CONTROLLED (<130/80) BP CONTROLLE D (<130/80) [facility] Start: 05-03-2023 Influenza vaccination C [facility] Start: 04-30-2023 ANNUAL PCP TEAM CREATIVE/ART DIRECTOR DONTAE DISEASE VISIT ANNUAL PCP TEAM CHRONIC DISEASE VISIT [facility] Start: 04-30-2023 BP CONTROLLED (<130/80) BP CONTROLLE D (<130/80) [facility] Start: 04-06-2023 BP CONTROLLED (<130/80) BP CONTROLLE D (<130/80) [facility] Start: 03-29-2023 End: 05-29-2023 CBC W Auto Differential panel - Blood CBC + DIFF Lab Routine Thrombocytosis Expected: 03/29/2023, Expires: 05/29/2023 [facility] Work Phone: Comment on above: Expected: 03/29/2023 , Expires: 05/29/2023 Start: 03-23-2023 ANNUAL PCP TEAM CREATIVE/ART DIRECTOR DONTAE DISEASE VISIT ANNUAL PCP TEAM CHRONIC DISEASE VISIT [facility] Start: 03-23-2023 BP CONTROLLED (<130/80) BP CONTROLLE D (<130/80) [facility] Start: 03-14-2023 BP CONTROLLED (<130/80) BP CONTROLLE D (<130/80) [facility] Start: 02-27-2023 End: 04-29-2023 CBC W Auto Differential panel - Blood CBC + DIFF Lab Routine Thrombocytosis Expected: 02/27/2023, Expires: 04/29/2023 [facility] Work Phone: Comment on above: Expected: 02/27/2023 , Expires: 04/29/2023 Start: 02-27-2023 End: 04-29-2023 Ferritin [Mass/volume] in Serum or Plasma FERRITIN BLD Lab Routine Thrombocytosis Expected: 02/27/2023, Expires: 04/29/2023 [facility] Work Phone: Comment on above: Expected: 02/27/2023 , Expires: 04/29/2023 Start: 02-27-2023 End: 04-29-2023 Iron and Iron binding capacity panel - Serum or Plasma IRON + TIBC Lab Routine Thrombocytosis Expected: 02/27/2023, Expires: 04/29/2023 [facility] Work Phone: Comment on above: Expected: 02/27/2023 , Expires: 04/29/2023 Start: 12-19-2022 ANNUAL PCP TEAM CREATIVE/ART DIRECTOR DONTAE DISEASE VISIT ANNUAL PCP TEAM CHRONIC DISEASE VISIT [facility] Start: 12-19-2022 BP CONTROLLED (<130/80) BP CONTROLLE D (<130/80) [facility] Start: 12-04-2022 End: 02-03-2023 CREATININE BLD CREATININE BLD Lab Routine Essential hypertension, benign Expected: 12/04/2022, Expires: 02/03/2023 [facility] Work Phone: Comment on above: Expected: 12/04/2022 , Expires: 02/03/2023 Start: 11-19-2022 End: 01-19-2023 Thyrotropin [Units/volume] in Serum or Plasma [facility] Work Phone: Comment on above: Expected: 11/19/2022 , Expires: 01/19/2023 Start: 11-19-2022 End: 01-19-2023 Thyroxine (T4) free [Mass/volume] in Serum or Plasma [facility] Work Phone: Comment on above: Expected: 11/19/2022 , Expires: 01/19/2023 Start: 10-31-2022 End: 12-31-2022 CBC W Auto Differential panel - Blood CBC + DIFF Lab Routine Leukocytosis, unspecified type Expected: 10/31/2022, Expires: 12/31/2022 [facility] Work Phone: Comment on above: Expected: 10/31/2022 , Expires: 12/31/2022 Start: 10-24-2022 ANNUAL PCP TEAM CREATIVE/ART DIRECTOR DONTAE DISEASE VISIT ANNUAL PCP TEAM CHRONIC DISEASE VISIT [facility] Start: 10-24-2022 BP CONTROLLED (<130/80) BP CONTROLLE D (<130/80) [facility] Start: 09-12-2022 End: 11-12-2022 CBC W Auto Differential panel - Blood CBC + DIFF Lab Routine Medication management Expected: 09/12/2022, Expires: 11/12/2022 [facility] Work Phone: Comment on above: Expected: 09/12/2022 , Expires: 11/12/2022 Start: 09-12-2022 End: 11-12-2022 Cobalamin (Vitamin B12) [Mass/volume] in Serum or Plasma VITAMIN B12 BLOOD Lab Routine Medication management GERD without esophagitis Expected: 09/12/2022, Expires: 11/12/2022 [facility] Work Phone: Comment on above: Expected: 09/12/2022 , Expires: 11/12/2022 Start: 09-12-2022 End: 11-12-2022 Comprehensive metabolic 2000 panel - Serum or Plasma COMP METABOLIC PANEL Lab Routine Essential hypertension, benign Expected: 09/12/2022, Expires: 11/12/2022 [facility] Work Phone: Comment on above: Expected: 09/12/2022 , Expires: 11/12/2022 Start: 09-12-2022 End: 11-12-2022 Hemoglobin A1c in Blood HGB A1C Lab Routine Elevated blood sugar Expected: 09/12/2022, Expires: 11/12/2022 [facility] Work Phone: Comment on above: Expected: 09/12/2022 , Expires: 11/12/2022 Start: 09-12-2022 End: 11-12-2022 LIPID PANEL, NONFASTING LIPID PANEL, NONFASTING Lab Routine Essential hypertension, benign Expected: 09/12/2022, Expires: 11/12/2022 [facility] Work Phone: Comment on above: Expected: 09/12/2022 , Expires: 11/12/2022 Start: 09-12-2022 End: 11-12-2022 Magnesium [Mass/volume] in Serum or Plasma MAGNESIUM BLD Lab Routine Medication management GERD without esophagitis Expected: 09/12/2022, Expires: 11/12/2022 [facility] Work Phone: Comment on above: Expected: 09/12/2022 , Expires: 11/12/2022 Start: 09-12-2022 End: 11-12-2022 Thyrotropin [Units/volume] in Serum or Plasma TSH BLD Lab Routine Multiple thyroid nodules Expected: 09/12/2022, Expires: 11/12/2022 [facility] Work Phone: Comment on above: Expected: 09/12/2022 , Expires: 11/12/2022 Start: 09-12-2022 End: 11-12-2022 Urinalysis complete panel - Urine URINALYSIS, WITH MICROSCOPIC Lab Routine Essential hypertension, benign Expected: 09/12/2022, Expires: 11/12/2022 [facility] Work Phone: Comment on above: Expected: 09/12/2022 , Expires: 11/12/2022 Start: 09-02-2022 ADVANCE DIRECTIVE DISCUSSION ADVANCE DIRECTIVE DISCUSSION [facility] Start: 09-02-2022 DEPRESSION ASSESSMENT DEPRESSION ASS ESSMENT [facility] Start: 07-25-2022 Mammography MAMMOGRAM [facility] Start: 07-04-2022 End: 07-18-2022 Influenza virus A and B RNA and SARS-CoV-2 (COVID-19) N gene panel - Respiratory specimen by THOMAS with probe detection COVID WITH FLUA+B, ROUTINE Microbiology Routine Suspected COVID-19 virus infection Expected: 07/04/2022, Expires: 07/18/2022 [facility] Work Phone: Comment on above: Expected: 07/04/2022 , Expires: 07/18/2022 Start: 05-11-2022 FECAL OCCULT BLOOD FECAL OCCULT BLOO D [facility] Start: 05-11-2022 Screening for malign ant neoplasm of colon Fecal Occult Blood [facility] Start: 05-03-2022 Influenza vaccination INFLUENZA (#1) [facility] Start: 03-23-2022 End: 05-23-2022 CBC W Auto Differential panel - Blood [facility] Work Phone: Comment on above: Expected: 03/23/2022 , Expires: 05/23/2022 Start: 03-18-2022 Patient discharge [facility] Work Phone: Start: 03-18-2022 [facility] Work Phone: Start: 03-18-2022 [facility] Work Phone: Start: 03-17-2022 Following clinical p athway protocol [facility] Work Phone: Start: 03-17-2022 Assessment of risk o f venous thromboembolism [facility] Work Phone: Start: 03-17-2022 Incentive spirometry [facility] Work Phone: Start: 03-17-2022 Inhalation therapy procedure [facility] Work Phone: Start: 03-17-2022 Insertion of cathete r into peripheral vein [facility] Work Phone: Start: 03-17-2022 Insertion of nasogas tric tube [facility] Work Phone: Start: 03-17-2022 Introduction of urin gibson catheter [facility] Work Phone: Start: 03-17-2022 Measuring intake and output [facility] Work Phone: Start: 03-17-2022 Oxygen therapy [facility] Work Phone: Start: 03-17-2022 Providing care accor ding to standard [facility] Work Phone: Start: 03-17-2022 Provision of activit y privileges [facility] Work Phone: Start: 03-17-2022 Referral to general surgeon [facility] Work Phone: Start: 03-17-[address] [facility] Work Phone: Start: 03-17-2022 [facility] Work Phone: Start: 03-17-2022 Verification routine [facility] Work Phone: Start: 03-17-[address] [facility] Work Phone: Start: 03-17-2022 Plain X-ray abdomen Abdomen Si ngle View (Portable) [facility] Work Phone: Start: 03-17-2022 XR Abdomen Single view [facility] Work Phone: Start: 03-17-2022 [facility] Work Phone: Start: 02-13-2022 BP CONTROLLED (<130/80) BP CONTROLLE D (<130/80) [facility] Start: 01-19-2022 End: 03-21-2022 VITAMIN B12 BLOOD VITAMIN B12 BLOOD Lab Routine High serum vitamin B12 Expected: 01/19/2022, Expires: 03/21/2022 [facility] Work Phone: Comment on above: Expected: 01/19/2022 , Expires: 03/21/2022 Start: 01-19-2022 End: 03-21-2022 VITAMIN D 25 HYDROXY VITAMIN D 25 HYDROXY Lab Routine High vitamin D level Expected: 01/19/2022, Expires: 03/21/2022 [facility] Work Phone: Comment on above: Expected: 01/19/2022 , Expires: 03/21/2022 Start: 12-19-2021 End: 02-18-2022 Ascorbate [Mass/volume] in Serum or Plasma [facility] Work Phone: Comment on above: Expected: 12/19/2021 , Expires: 02/18/2022 Start: 12-19-2021 End: 02-18-2022 Folate [Mass/volume] in Serum or Plasma [facility] Work Phone: Comment on above: Expected: 12/19/2021 , Expires: 02/18/2022 Start: 12-19-2021 End: 02-18-2022 IRON + TIBC [facility] Work Phone: Comment on above: Expected: 12/19/2021 , Expires: 02/18/2022 Start: 12-19-2021 End: 02-18-2022 VITAMIN B12 BLOOD [facility] Work Phone: Comment on above: Expected: 12/19/2021 , Expires: 02/18/2022 Start: 12-19-2021 End: 02-18-2022 VITAMIN D 25 HYDROXY [facility] Work Phone: Comment on above: Expected: 12/19/2021 , Expires: 02/18/2022 Start: 09-02-2021 ADVANCE DIRECTIVE DISCUSSION ADVANCE DIRECTIVE DISCUSSION [facility] Start: 09-02-2021 DEPRESSION ASSESSMENT DEPRESSION ASS ESSMENT [facility] Start: 2016 RSV Vaccine (1 - 1-d ose 60+ series) RSV Vaccine (1 - 1-dose 60+ series) [facility] Start: 2001 COLOGUARD (FIT-DNA) [facility] Start: [address] COLONOGRAPHY [facility] Start: 2001 Screening for malign ant neoplasm of colon [facility] Start: 2001 SIGMOIDOSCOPY SIGMOIDOSCOPY [facility] Start: 1986 Zoledronic acid therapy ALPHA- 1 ANTITRYPSIN DEFICIENCY SCREENING [facility] Start: 1974 Depression Screening Depression Scre ening [facility] Anion gap measurement [facility] Bacteria identified in Urine by Culture URINE CULTURE Microbiology Routine Dysuria 06/03/2024 10:52 AM EDT [facility] End: 10-31-2025 BD DXA TRABECULAR BONE SCORE (TBS) BD DXA TRABECULAR BONE SCORE (TBS) Radiology Routine Osteoporosis, unspecified osteoporosis type, unspecified pathological fracture presence 1 Occurrences starting 10/01/2024 until 10/31/2025 [facility] Comment on above: 1 Occurrences starti ng 10/01/2024 until 10/31/2025 BUN/Creatinine ratio [facility] Calcium [Mass/volume ] in Serum or Plasma [facility] Carbon dioxide, tota l [Moles/volume] in Serum or Plasma [facility] Chlamydia trachomatis+Neisseria gonorrhoeae DNA [Presence] in Unspecified specimen by THOMAS with probe detection GONORRHEA/CHLAMYDIA NAAT Lab Routine Dysuria Ordered: 06/03/2024 [facility] Comment on above: Ordered: 06/03/2024 Chloride [Moles/volu me] in Serum or Plasma [facility] COVID & INFLUENZA A/ B & RSV NAAT, ROUTINE COVID & INFLUENZA A/B & RSV NAAT, ROUTINE Microbiology Routine Suspected COVID-19 virus infection 06/08/2023 11:28 AM EDT [facility] Work Phone: Creatinine [Moles/vo lume] in Serum or Plasma [facility] End: 01-03-2024 Ct abdomen & pelvis w/contrast material CT ABD/PEL W IVCON Radiology Routine Ex-smoker Weight loss, unintentional 1 Occurrences starting 12/04/2022 until 01/03/2024 [facility] Work Phone: Comment on above: 1 Occurrences starti ng 12/04/2022 until 01/03/2024 CT Chest [facility] CT Chest [facility] End: 12-19-2023 Ct thorax w/o contrast material CT CHEST WO IVCON Radiology Routine Weight loss Ex-smoker Lung nodules 1 Occurrences starting 11/19/2022 until 12/19/2023 [facility] Work Phone: Comment on above: 1 Occurrences starti ng 11/19/2022 until 12/19/2023 End: 03-16-2024 CTA HEAD W IVCON CTA HEAD W IVCON Radiology Routine New onset of headaches after age 50 1 Occurrences starting 02/15/2023 until 03/16/2024 [facility] Work Phone: Comment on above: 1 Occurrences starti ng 02/15/2023 until 03/16/2024 End: 10-31-2025 DXA Skeletal system.axial Views for bone density DXA-AXIAL SKELETON Radiology Routine Osteoporosis, unspecified osteoporosis type, unspecified pathological fracture presence 1 Occurrences starting 10/01/2024 until 10/31/2025 [facility] Work Phone: Comment on above: 1 Occurrences starti ng 10/01/2024 until 10/31/2025 End: 10-27-2023 DXA-AXIAL SKELETON DXA-AXIAL SKELETON Radiology Routine Osteoporosis, unspecified osteoporosis type, unspecified pathological fracture presence 1 Occurrences starting 09/27/2022 until 10/27/2023 [facility] Work Phone: Comment on above: 1 Occurrences starti ng 09/27/2022 until 10/27/2023 End: 07-09-2023 ECG COMPLETE ECG COMPLETE ECG Routine Feeling of chest tightness Chest heaviness SOB (shortness of breath) 1 Occurrences starting 07/09/2022 until 07/09/2023 [facility] Work Phone: Comment on above: 1 Occurrences starti ng 07/09/2022 until 07/09/2023 End: 01-05-2026 Echocardiography ECHO Cardiology Routine Ectatic thoracic aorta 1 Occurrences starting 01/05/2025 until 01/05/2026 [facility] Work Phone: Comment on above: 1 Occurrences starti ng 01/05/2025 until 01/05/2026 Glucose [Mass/volume ] in Serum or Plasma [facility] Hematocrit [Volume Fraction] of Blood [facility] Hemoglobin [Mass/vol ume] in Blood [facility] Leukocytes [#/volume ] in Blood [facility] Magnesium [Mass/volu me] in Serum or Plasma [facility] Work Phone: Mean corpuscular hemoglobin concentration determination [facility] Mean corpuscular hemoglobin determination [facility] Measurement of renal function [facility] MG Breast Screening MARCIANO SCREENIN G Radiology Routine Encounter for screening mammogram for breast cancer 07/01/2024 11:46 AM EDT [facility] Work Phone: End: 04-25-2025 MR Shoulder - left WO and W contrast IV MRI SHOULDER WO/W IVCON LEFT Radiology Routine Fall, initial encounter Acute pain of left shoulder 1 Occurrences starting 03/26/2024 until 04/25/2025 [facility] Work Phone: Comment on above: 1 Occurrences starti ng 03/26/2024 until 04/25/2025 Neutrophil count [facility] Neutrophil percent differential count [facility] Patient Education ED Anxiety Reaction [facility] Work Phone: Patient referral [facility] Work Phone: Platelets [#/volume] in Blood [facility] Potassium [Moles/vol ume] in Serum or Plasma [facility] Red blood cell count [facility] Red cell distributio n width determination [facility] ROUTINE FLU A/B + RSV ROUTINE FL U A/B + RSV Lab Routine Suspected COVID-19 virus infection 06/08/2023 11:28 AM EDT [facility] Work Phone: SARS-CoV-2 (COVID-19 ) RNA [Presence] in Respiratory specimen by THOMAS with probe detection COVID NAAT, UPPER RESPIRATORY, ROUTINE Microbiology Routine Suspected COVID-19 virus infection 06/08/2023 11:28 AM EDT [facility] Work Phone: End: 08-30-2023 Screening mammography bi 2-view breast inc cad MARCIANO SCREENING Radiology Routine Encounter for gynecological examination (general) (routine) without abnormal findings Encounter for screening mammogram for breast cancer 1 Occurrences starting 07/31/2022 until 08/30/2023 [facility] Work Phone: Comment on above: 1 Occurrences starti ng 07/31/2022 until 08/30/2023 Sodium [Moles/volume ] in Serum or Plasma [facility] TRICHOMONAS VAGINALIS NAAT TRICH OMONAS VAGINALIS NAAT Lab Routine Dysuria Ordered: 06/03/2024 [facility] Work Phone: Comment on above: Ordered: 06/03/2024 Urea nitrogen [Mass/volume] in Serum or Plasma [facility] End: 12-19-2023 US ABDOMEN COMPLETE US ABDOMEN COMPLETE Radiology Routine Weight loss Ex-smoker 1 Occurrences starting 11/19/2022 until 12/19/2023 [facility] Work Phone: Comment on above: 1 Occurrences starti ng 11/19/2022 until 12/19/2023 End: 04-22-2023 Us pelvic nonobstetric real-time image complete US FEMALE PELVIS TRANSABD COMPLETE Radiology Routine Enlarged uterus Lower abdominal pain 1 Occurrences starting 03/23/2022 until 04/22/2023 [facility] Work Phone: Comment on above: 1 Occurrences starti ng 03/23/2022 until 04/22/2023 End: 04-22-2023 Us transvaginal US FEMALE PELVIS TRANSVAG Radiology Routine Enlarged uterus Lower abdominal pain 1 Occurrences starting 03/23/2022 until 04/22/2023 [facility] Work Phone: Comment on above: 1 Occurrences starti ng 03/23/2022 until 04/22/2023 Us transvaginal US FEMALE PELVIS TRANSVAG Radiology Routine Enlarged uterus Lower abdominal pain 03/29/2022 10:30 AM EDT [facility] Work Phone: Vitamin D, 25-hydrox y measurement [facility] XR ABDOMEN 1V SUPINE XR ABDOMEN 1V SUPINE Radiology Routine Partial intestinal obstruction, unspecified cause (HCC) 03/23/2022 8:49 AM EDT [facility] Work Phone: End: 09-02-2025 XR Pelvis and Hip - left AP and Lateral frog XR HIP GENERAL 3V PELV/AP/LAT LEFT Radiology Routine Left hip pain 1 Occurrences starting 08/03/2024 until 09/02/2025 [facility] Work Phone: Comment on above: 1 Occurrences starti ng 08/03/2024 until 09/02/2025 XR Pelvis and Hip - left AP and Lateral frog XR HIP GENERAL 3V PELV/AP/LAT LEFT Radiology Routine Left hip pain 08/03/2024 10:22 AM CHEIKH [facility] End: 11-13-2024 XR Shoulder - right 3 Views XR SHOULDER GENERAL 3V OR MORE AP/TRUE AP/OTHER RIGHT Radiology Routine Neck pain Acute pain of right shoulder 1 Occurrences starting 10/15/2023 until 11/13/2024 [facility] Work Phone: Comment on above: 1 Occurrences starti ng 10/15/2023 until 11/13/2024 XR Shoulder - right 3 Views XR SHOULDER GENERAL 3V OR MORE AP/TRUE AP/OTHER RIGHT Radiology Routine Neck pain Acute pain of right shoulder 10/15/2023 9:38 AM CHEIKH [facility] Work Phone: [facility] Immunizations Immunization Date Immunization Notes Care Provider Radha [facility] 06-30-2024 influenza virus vacc ine, unspecified formulation Shanita Green PA-C Work Phone: [facility] 12-26-2023 pneumococcal conjuga te (PCV20) vaccine, 20 valent (PREVNAR 20) Rito Camp MD Work Phone: [facility] 12-26-2023 respiratory syncytia l virus (RSV) vaccine, adjuvanted (AREXVY) Rito Camp MD Work Phone: [facility] 06-05-2023 influenza, high dose seasonal, preservative-free Rito Camp MD Work Phone: [facility] 06-05-2023 influenza virus vacc ine, unspecified formulation Christine Parker RN [facility] 06-27-2022 influenza (aIIV4) vaccine, age 65+ yr, quadrivalent, PF (FLUAD QUADRIVALENT) Kami Hunter RN Work Phone: [facility] 06-27-2022 influenza virus vacc ine, unspecified formulation Rito Camp MD Work Phone: [facility] 11-14-2021 pneumococcal (PCV20) vaccine, 20 valent (PREVNAR 20) Kami Hunter RN [facility] 06-10-2021 COVID-19 vaccine, ag e 12+ yr (PFIZER-Given.to - PURPLE TOP) Kami Hunter RN [facility] 05-29-2021 influenza, seasonal, injectable Kami Hunter RN [facility] 05-03-2021 Covid (Pfizer) Dr. Rito corona Work Phone: [facility] 04-02-2021 Covid (Pfizer) Dr. Rito corona Work Phone: [facility] 05-18-2020 influenza, injectabl e, quadrivalent, preservative free Kami Hunter RN [facility] Work Phone: 05-18-2020 influenza, seasonal, injectable Kami Hunter RN [facility] 05-18-2020 pneumococcal conjuga te vaccine, 13 valent Kami Hunter RN [facility] 05-19-2019 influenza, injectabl e, quadrivalent, preservative free Kami Hunter RN [facility] Work Phone: 05-19-2019 influenza, seasonal, injectable Kami Hunter RN [facility] 05-19-2019 pneumococcal polysaccharide vaccine, 23 valent Kami Hunter RN [facility] 04-04-2019 zoster vaccine recombinant Kami Hunter RN [facility] 12-18-2018 tetanus toxoid, redu darnell diphtheria toxoid, and acellular pertussis vaccine, adsorbed Kami Hunter RN [facility] Work Phone: 12-18-2018 zoster vaccine recombinant Kami Hunter RN [facility] Work Phone: 05-18-2018 influenza, seasonal, injectable Kami Hunter RN [facility] 05-12-2018 influenza, injectabl e, quadrivalent, contains preservative Kami Hunter RN [facility] 05-15-2017 influenza, seasonal, injectable Kami Hunter RN [facility] 05-15-2017 tetanus toxoid, redu darnell diphtheria toxoid, and acellular pertussis vaccine, adsorbed Kami Hunter RN [facility] 06-15-2015 influenza virus vacc ine, unspecified formulation Kami Hunter RN [facility] 06-12-[address] Rito Camp Work Phone: [facility] 06-12-2013 influenza, seasonal, injectable Kami Hunter RN [facility] 05-31-2012 influenza virus vacc ine, unspecified formulation Kami Hunter RN [facility] 06-21-2010 influenza virus vacc ine, unspecified formulation Kami Hunter RN [facility] 05-23-2009 influenza virus vacc ine, live, attenuated, for intranasal use Kami Hunter RN [facility] Work Phone: 07-08-2007 influenza virus vacc ine, unspecified formulation Kami Hunter RN [facility] 07-04-2005 pneumococcal polysaccharide vaccine, 23 valent Kami Hunter RN [facility] Work Phone: 01-05-2005 pneumococcal (PCV15) vaccine, 15 valent (VAXNEUVANCE) Shanita Green PA-C Work Phone: [facility] 01-05-[address] Kwan Camp Work Phone: [facility] Work Phone: 01-05-2005 pneumococcal vaccine , unspecified formulation Shanita Green PA-C Work Phone: [facility] Payers Date Payer Category Payer Self-pay [id number] 2020 Medicare (Managed Care) KAJAL RAMAN O [id number] 2020 Unknown KAJAL SHERIDAN CR[employer] S [employer] BLUE SHIELD KAJAL LIND O [id number] 2020-Present [phone] [address] [place] [address] [facility] [id number] 2020 Unknown [id number] 2014 Medicare [employer] THP SEC[employer] MDCR HMO [id number] 2014-[address] [place] [id number] [id number] 2014 Unknown [id number] 2013 Unknown [id number] 2012 Unknown [id number] Unknown [id number] Unknown [id number] Unknown [id number] Unknown [id number] Unknown [id number] Unknown [id number] Unknown [id number] Unknown [id number] Unknown [id number] Unknown [id number] Social History Date Type Detail Facility Start: 08-06-2012 End: 06-03-2024 Tobacco smoking status NHIS Ex-smoker [facility] Start: 07-31-1990 End: 07-31-2005 History of tobacco use Current smoker [facility] Start: 07-31-1990 End: 07-31-2005 History of tobacco use Cigarette Smoker [facility] Start: 08-06-2012 End: 01-21-2023 Cigarettes smoked current (pack per day) - Reported 1.5 [facility] Work Phone: Start: 08-06-2012 End: 06-03-2024 Tobacco use and exposure Smokeless tobacco non-user [facility] Start: 10-24-2021 End: 01-21-2025 Alcohol intake Current drinker of alcohol (finding) [facility] Start: 06-18-2016 History SDOH Alcohol Comment 5-8 beers daily [facility] Start: 1955 Sex Assigned At Not on file [facility] Start: 06-23-2020 End: 07-31-2022 Exposure to SARS-CoV-2 (event) Not sure [facility] Work Phone: Start: 07-11-2021 End: 06-01-2023 Tobacco smoking status NHIS Unknown if ever smoked [facility] Start: 1955 Sex Assigned At Female W [facility] Start: 03-16-2022 End: 03-26-2022 Exposure to SARS-CoV-2 (event) Unable to assess [facility] Work Phone: Start: 01-21-2023 End: 02-20-2023 Tobacco use panel [facility] Work Phone: Adult Depression Screening Assessment 0 [facility] Work Phone: Start: 07-18-2013 Occasional [facility] Start: 07-18-2013 None [facility] Start: 07-18-2013 Spouse/ Signif icant Other [facility] Start: 07-18-2013 Non-smoker [facility] (I/We) worried whejosé miguel er (my/our) food would run out before (I/we) got money to buy more. Never true [facility] Do you belong to any clubs or organizations such as roman catholic groups, unions, fraternal or athletic groups, or school groups? No [facility] Are you now , , , , never or living with a partner? [facility] How often to you hav e a drink containing alcohol? 4 or more times a week [facility] How many standard drinks containing alcohol do you have on a typical day? 5 or 6 [facility] How often do you hav e 6 or more drinks on 1 occasion? Daily or almost daily [facility] Do you feel stress - tense, restless, nervous, or anxious, or unable to sleep at night because your mind is troubled all the time - these days [OSQ] To some extent [facility] Start: 11-30-2024 Sex Female (finding) [facility] NEGATED: Highlighted row [facility] Goals Date Patient Goal Desired Activity /State Personal health goal Comment on above: Formatting of this n ote might be different from the original. Avoid hospitalizations. Personal health goal Comment on above: Formatting of this n ote might be different from the original. Patient has the following Chronic Obstructive Pulmonary Disease goals: Two PCP visits annually and Pulmonology visit annually Education provided and reviewed with patient - sent on 07/17/23 Understanding COPD Patient will meet these goals by end of 2023 (describe interventions done by PCC) Comment on above: Formatting of this n ote might be different from the original. Stay out of the ER/Hospital Comment on above: Formatting of this n ote might be different from the original. Comment on above: Formatting of this n ote might be different from the original. Avoid hospitalizations. Functional Status Date Assessment Result Facility 06-02-2023 Functional status Ambulates [facility] Work Phone: 03-18-2022 Functional status Ambulates;Up ad moisés [facility] Work Phone: 10-14-2018 Are you deaf, or do you have serious difficulty hearing No 10/14/2018 5:48 PM Darvin Proctor III, MD No [facility] 10-14-2018 Are you blind, or do you have serious difficulty seeing, even when wearing glasses No 10/14/2018 5:48 PM Darvin Proctor III, MD No [facility] 10-14-2018 Do you have serious difficulty walking or climbing stairs No 10/14/2018 5:48 PM Darvin Proctor III, MD No [facility] 10-14-2018 Do you have difficul ty dressing or bathing No 10/14/2018 5:48 PM Darvin Proctor III, MD No [facility] 10-14-2018 Because of a physica l, mental, or emotional condition, do you have difficulty doing errands alone such as visiting a physician's office or shopping No 10/14/2018 5:48 PM Darvin Proctor III, MD No [facility] Mental Status Date Assessment Result Facility 06-01-2023 Cognitive function Voice/Name [facility] Work Phone: 03-18-2022 Cognitive function Demonstrates ability to follow instructions/comprehend [facility] Work Phone: 03-17-2022 Cognitive function Voice/Name [facility] Work Phone: 10-14-2018 Because of a physica l, mental, or emotional condition, do you have serious difficulty concentrating, remembering, or making decisions No 10/14/2018 5:48 PM Darvin Proctor III, MD No [facility] Clinical Notes 01-03-2017 to 03-26-2025 Telephone Encounter - Melita Le LPN - 03/26/2025 8:56 AM EDTTelephone Encounter - Melita Le LPN - 03/26/2025 8:56 AM EDTTelephone Encounter - Ann Onofre - 03/22/2025 1:05 PM EDT Note Date & Type Note Facility 03-26-2025 Telephone encounter Note Sent pt MC msg with result note since pt read message but has not contacted office. Pt is scheduled 03/29/25 with Shanita unless pt reads results and cancels appointment. Melita Le LPN [facility] 03-26-2025 Miscellaneous Notes Sent pt MC msg with result note since pt read message but has not contacted office. Pt is scheduled 03/29/25 with Shanita unless pt reads results and cancels appointment. Melita Le LPN Left additional message for pt to contact office. Also sent MC msg for pt to contact Triage Nurse. Melita Le LPN Left message for pt to contact office. Melita Le LPN Let patient know that her labs were okay. She had one antibody that was borderline elevated. But all other associated workup was negative. No further testing needed at this time. She scheduled herself for a visit to discuss labs next week. This is not necessary unless she had specific concerns. She made that appointment before the full panel results were available. documented in this encounter [facility] 03-24-2025 Telephone encounter Note Left additional message for pt to contact office. Also sent msg for pt to contact Triage Nurse. Melita Le LPN [facility] 03-22-2025 Telephone encounter Note Prescription Refill Information The patient has been identified by name and date of : Yes Caregiver verified no other encounters exist for this prescription request: Yes Caregiver confirmed with patient/requestor that no other refills are due, in the near future, with this provider at this time: Yes The last office visit in the department: 03-15-25 Does the patient have a future office visit with this provider/department: Yes Requested Prescriptions Pending Prescriptions Disp Refills traZODone (DESYREL) 150 mg tablet 90 tablet 1 Sig: Take 1 tablet by mouth daily at bedtime. Patient asking for additional refills Ann Onofre March 22, 2025 1:05 PM [facility] 03-22-2025 Miscellaneous Notes Prescription Refill Information The patient has been identified by name and date of : Yes Caregiver verified no other encounters exist for this prescription request: Yes Caregiver confirmed with patient/requestor that no other refills are due, in the near future, with this provider at this time: Yes The last office visit in the department: 03-15-25 Does the patient have a future office visit with this provider/department: Yes Requested Prescriptions Pending Prescriptions Disp Refills traZODone (DESYREL) 150 mg tablet 90 tablet 1 Sig: Take 1 tablet by mouth daily at bedtime. Patient asking for additional refills Ann Onofre March 22, 2025 1:05 PM documented in this encounter [facility] 03-18-2025 Telephone encounter Note Left message for pt to contact office. Melita Le LPN [facility] 03-18-2025 Telephone encounter Note Let patient know that her labs were okay. She had one antibody that was borderline elevated. But all other associated workup was negative. No further testing needed at this time. She scheduled herself for a visit to discuss labs next week. This is not necessary unless she had specific concerns. She made that appointment before the full panel results were available. [facility] 03-17-2025 Telephone encounter Note This was the PA response. Closed 03/17/2025 10:27 AM Close reason: Prior Authorization not required for patient/medication Note from payer: Available without authorization. The member is able to fill the requested drug at the pharmacy. If coverage is still needed or requesting prior to the expiration of a current authorization, a request can be made by sending a fax or calling the number on the back of the member's ID card. - Prescriber details have been updated to match the prescriber directory. [facility] 03-17-2025 Miscellaneous Notes This was the PA response. Closed 03/17/2025 10:27 AM Close reason: Prior Authorization not required for patient/medication Note from payer: Available without authorization. The member is able to fill the requested drug at the pharmacy. If coverage is still needed or requesting prior to the expiration of a current authorization, a request can be made by sending a fax or calling the number on the back of the member's ID card. - Prescriber details have been updated to match the prescriber directory. Mariza CORREA rec'd. Did request PA electronically to review. Benito madrid [facility] calls with prior authorization questions for [employer]. Questions Answered. Will fax results of prior authorization within 72 hours. Please Watch for response. PRIOR AUTHORIZATION Medication for Prior Authorization: [employer] Insurance Company: [employer] Patient insurance ID number: [id number] [place] Gill RN documented in this encounter [facility] 03-17-2025 Telephone encounter Note Galomygonzaless SUNNY rec'd. Did request PA electronically to review. [facility] 03-17-2025 Telephone encounter Note Benito from [facility] calls with prior authorization questions for [employer]. Questions Answered. Will fax results of prior authorization within 72 hours. Please Watch for response. PRIOR AUTHORIZATION Medication for Prior Authorization: [employer] Insurance Company: [employer] Patient insurance ID number: [id number] Albania Gill RN [facility] 03-15-2025 Note HNO ID: [id number] Author: SHANITA GREEN PA-C Service: ? Author Type: Physician Diesel Locomotive Engineer Type: Progress Notes Filed: 03/15/2025 11:07 Note Text: Chief Complaint Patient presents with: Buttock Pain: Bilateral radiates down leg. Has been having more brusing left arm HPI Diony Ramirez is a 70 year old female who presents here today for Above Complaints.. Insomnia: - Persistent insomnia, with difficulty maintaining sleep. - Falls asleep around 21:00-21:30 but wakes up consistently at 01:00 and is unable to return to sleep. - Currently taking Seroquel 50 mg, trazodone, hydroxyzine, and OTC melatonin for sleep with no significant improvement. - Expresses frustration with the number of medications being taken and desires to reduce medication use. Easy Bruising: - Reports easy bruising, particularly on the left wrist, with minimal trauma. - Bruises sometimes appear purple and can bleed easily if bumped. - Using Bermed topical cream for bruising with no significant improvement. - Denies taking aspirin or other blood thinners; currently on Celebrex. - History of iron deficiency with recent normal levels. Bilateral Buttock and Upper Leg Pain: - Reports worsening pain in the bilateral buttocks and upper legs, described as feeling like being kicked by a horse or ripped apart. - Pain has been present for about two years and is worse in the upper part of the legs and buttocks. - Pain is constant and worsens with bending over or picking up objects. - Has tried various topical pain relief creams with no significant improvement. - History of neuropathy in the upper legs, diagnosed many years ago with nerve conduction tests. - History of scoliosis, arthritis, and spinal surgery in 1994. - Currently under the care of Dr. Epstein for pain management and receiving injections for neck and shoulder pain. - Has had multiple back x-rays and MRIs in the past. - Denies interest in physical therapy, stating she can perform exercises at home. - Walks daily but reports that walking worsens the pain. Past medical history, appointments, medications, allergies reviewed. Previous Medical History PAST MEDICAL HISTORY Diagnosis Date Abnormal toxicological findings 02/01/2021 Tox screen 01/27/2021 showed no benzos and pos for oxycodone which patient was not on. Patient informed of no further controlled med refills. 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 Chronic anxiety 06/17/2018 Chronic bilateral low back pain with sciatica 07/15/[address] Epstein Degenerative arthritis of lumbar spine 05/06/2014 Ectatic thoracic aorta 12/04/2022 CT done 12/2022 Elevated blood sugar 01/27/2021 Emphysema of lung (HCC) 03/18/2015 Essential hypertension, benign 02/21/2015 Ex-smoker 01/27/2021 Started around 89 and quit 2005. Smoked about 1.5 PPD GERD without esophagitis 09/12/2022 Herpes 01/27/2021 History of 2019 novel coronavirus disease (COVID-19) 01/27/202106/2020 History of small bowel obstruction HSV (herpes simplex virus) anogenital infection 02/08/2016 Living will on file at physician's office 09/27/2022 DPA: Reina Lint (aunt) Lung mass 09/07/2011 Lung nodules 05/30/[address] Suleman Gustafson Medicare annual wellness visit, subsequent 01/27/2021 Medicare Part B: NA Last done: Multiple thyroid nodules 01/27/[address] Vigil and f/u was stable. Told no need for further f/u. Osteoporosis 09/01/2015 Fosamax restarted 01/2019 Other dysphagia 01/21/2025 Did swallowing exam and sent to therapy for swallowing techniques. 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 Takes mid morning. Substance agreement signed and Tox screen done 12/2020. 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 COLONOSCOPY FLX DX W/COLLJ SPEC WHEN PFRMD 08/19/2006 Repeat in COLONOSCOPY FLX DX W/COLLJ SPEC WHEN PFRMD 06/27/2016 Colonoscopy CRANIOPLASTY SKULL DEF/REPAIR/ BRAIN 09/14/2014 See scanned documents - status post ESOPHAGOGASTRODUODENOSCOPY TRANSORAL DIAGNOSTIC 06/27/2016 EGD ESOPHAGOGASTRODUODENOSCOPY TRANSORAL DIAGNOSTIC 06/30/2018 EGD IANDD ABSCESS CMPLX/MULT 07/2013 Epidural abscess- MSSA LIG/TRNSXJ FLP TUBE ABDL/VAG APPR UNI/BI Tubal lig (more content not included)... [facility] 03-15-2025 History of Present illness Narrative Chief Complaint Patient presents with: Buttock Pain: Bilateral radiates down leg. Has been having more brusing left arm HPI Diony Ramirez is a 70 year old female who presents here today for Above Complaints.. Insomnia: - Persistent insomnia, with difficulty maintaining sleep. - Falls asleep around 21:00-21:30 but wakes up consistently at 01:00 and is unable to return to sleep. - Currently taking Seroquel 50 mg, trazodone, hydroxyzine, and OTC melatonin for sleep with no significant improvement. - Expresses frustration with the number of medications being taken and desires to reduce medication use. Easy Bruising: - Reports easy bruising, particularly on the left wrist, with minimal trauma. - Bruises sometimes appear purple and can bleed easily if bumped. - Using Bermed topical cream for bruising with no significant improvement. - Denies taking aspirin or other blood thinners; currently on Celebrex. - History of iron deficiency with recent normal levels. Bilateral Buttock and Upper Leg Pain: - Reports worsening pain in the bilateral buttocks and upper legs, described as feeling like being kicked by a horse or ripped apart. - Pain has been present for about two years and is worse in the upper part of the legs and buttocks. - Pain is constant and worsens with bending over or picking up objects. - Has tried various topical pain relief creams with no significant improvement. - History of neuropathy in the upper legs, diagnosed many years ago with nerve conduction tests. - History of scoliosis, arthritis, and spinal surgery in 1994. - Currently under the care of Dr. Epstein for pain management and receiving injections for neck and shoulder pain. - Has had multiple back x-rays and MRIs in the past. - Denies interest in physical therapy, stating she can perform exercises at home. - Walks daily but reports that walking worsens the pain. Past medical history, appointments, medications, allergies reviewed. Previous Medical History PAST MEDICAL HISTORY Diagnosis Date Abnormal toxicological findings 02/01/2021 Tox screen 01/27/2021 showed no benzos and pos for oxycodone which patient was not on. Patient informed of no further controlled med refills. 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 Chronic anxiety 06/17/2018 Chronic bilateral low back pain with sciatica 07/15/[address] Epstein Degenerative arthritis of lumbar spine 05/06/2014 Ectatic thoracic aorta 12/04/2022 CT done 12/2022 Elevated blood sugar 01/27/2021 Emphysema of lung (HCC) 03/18/2015 Essential hypertension, benign 02/21/2015 Ex-smoker 01/27/2021 Started around 89 and quit 2004. Smoked about 1.5 PPD GERD without esophagitis 09/12/2022 Herpes 01/27/2021 History of 2019 novel coronavirus disease (COVID-19) 01/27/202106/2020 History of small bowel obstruction HSV (herpes simplex virus) anogenital infection 02/08/2016 Living will on file at physician's office 09/27/2022 DPA: Reina Denise (aunt) Lung mass 09/07/2011 Lung nodules 05/30/[address] Suleman Gustafson Medicare annual wellness visit, subsequent 01/27/2021 Medicare Part B: NA Last done: Multiple thyroid nodules 01/27/[address] Vigil and f/u was stable. Told no need for further f/u. Osteoporosis 09/01/2015 Fosamax restarted 01/2019 Other dysphagia 01/21/2025 Did swallowing exam and sent to therapy for swallowing techniques. 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 Takes mid morning. Substance agreement signed and Tox screen done 12/2020. 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 COLONOSCOPY FLX DX W/COLLJ SPEC WHEN PFRMD 08/19/2006 Repeat in COLONOSCOPY FLX DX W/COLLJ SPEC WHEN PFRMD 06/27/2016 Colonoscopy CRANIOPLASTY SKULL DEF/REPAIR/ BRAIN 09/14/2014 See scanned documents - status post ESOPHAGOGASTRODUODENOSCOPY TRANSORAL DIAGNOSTIC 06/27/2016 EGD ESOPHAGOGASTRODUODENOSCOPY TRANSORAL DIAGNOSTIC 06/30/2018 EGD I&D ABSCESS CMPLX/MULT 07/2013 Epidural abscess- MSSA LIG/TRNSXJ FLP TUBE ABDL/VAG APPR UNI/BI Tubal ligation PAST SURGICAL HISTORY OF spinal surgery PAST SURGICAL HISTORY OF 2/307 retinal detachment OD, (2 tears) PAST SURGICAL HISTORY OF 2012 back surgery STRESS TEST NUCLEAR 05/23/2021 negative Family History FAMILY HISTORY Problem Relation Age of Onset Hypertension Mother other (cerebral aneurysm) Mother Colon Polyps Father Hypertension Father COPD Father Cancer Father Bladder Cancer other (Past medical history) Father abdominal aneurysm/bladder cancer other (aortic aneurysm) Father Aneurysm Paternal Grandfather Patient Allergies ALLERGIES Allergen Reactions Fish Unknown Horse/Equine Contai* Unknown Lisinopril Cough Shellfish Derived Unknown Current Medications Current Outpatient Medications on File Prior to Visit Medication Sig QUEtiapine (SEROQUEL) 50 mg tablet Take 1 tablet by mouth daily at bedtime. alendronate (FOSAMAX) 70 mg tablet Take 1 tablet by mouth one time a week. In am with glass of water, on a empty stomach, nothing by mouth or lying down for 30 minutes acyclovir (ZOVIRAX) 400 mg tablet Take 1 tablet by mouth two times a day. hydrOXYzine HCl (ATARAX) 10 mg tablet Take 1 tablet by mouth daily at bedtime. Melatonin 5 mg cap Take 2 capsules by mouth daily at bedtime. celecoxib (CELEBREX) 200 mg capsule Take 1 capsule by mouth once daily. traZODone (DESYREL) 150 mg tablet Take 1 tablet by mouth daily at bedtime. amLODIPine (NORVASC) 2.5 mg tablet Take 1 tablet by mouth once daily. Dextromethorphan-guaiFENesin (ROBITUSSIN COUGH-CHEST ESTEFANÍA DM) 5-100 mg/5 mL liqd Take 10 mL by mouth every 4 hours as needed. omeprazole (PRILOSEC) 40 mg capsule Take 1 capsule by mouth once daily. FOLIC ACID ORAL Take by mouth as directed. ZINC ORAL Take by mouth as directed. SYMBICORT 160-4.5 mcg/actuation inhaler BIOTIN ORAL Take 5,000 mcg by mouth. ascorbic acid/collagen hydr (COLLAGEN PLUS VITAMIN C ORAL) Take 1,000 mg by mouth twice daily. albuterol HFA (PROAIR HFA) 90 mcg/actuation inhaler Inhale 2 Puffs as instructed every 4 hours as needed for Wheezing/Shortness of Breath. Ascorbic Acid (VITAMIN C) 1,000 mg TbER Take by mouth. Calcium Carb-Cholecalciferol (CALCIUM 600 WITH VITAMIN D3) 600-200 mg-unit ORAL Tab Take one(1) tablet two(2) times daily. No current facility-administered medications on file prior to visit. Social History Social History Tobacco Use Smoking status: Former Current packs/day: 0.00 Average packs/day: 1.5 packs/day for 15.0 years (22.5 ttl pk-yrs) Types: Cigarettes Start date: 07/31/1990 Quit date: 07/31/2005 Years since quittin.6 Smokeless tobacco: Never Vaping Use Vaping status: Never Used Substance Use Topics Alcohol use: Yes Alcohol/week: 10.0 - 15.0 standard drinks of alcohol Types: 10 - 15 Cans of Beer (12oz) per week Comment: 5-8 beers daily Drug use: No Review of Symptoms REVIEW OF SYSTEMS SEE HPI EXAM: BP 110/80 (BP Site: Left Arm, BP Position: Sitting, BP Cuff Size: Regular Adult) Pulse 86 Temp 37.1 C (98.7 F) Resp 16 LMP 03/23/2007 SpO2 96% General Appearance: Well appearing, alert, in no acute distress, well-hydrated, well nourished.. Skin: ecchymosis noted on left forearm. Health Maintenance List Mammogram Screening due on 07/01/2025 Influenza Vaccine(1) due on 05/03/2025 Depression Screening due on 10/01/2025 Annual PCP Team Chronic Disease Visit due on 03/15/2026 Colorectal Cancer Screening due on 06/27/2026 Bone Density Screening due on 12/28/2026 Diabetes Screening due on 09/24/2027 DTaP,Tdap,Td Vaccine(3 - Td or Tdap) due on 12/18/2028 Lipid Screening due on 09/24/2029 Advance Directive Discussion Completed RSV Vaccine Completed Medicare Advantage Annual Wellness Visit Completed Hepatitis C Screening Completed Shingrix Vaccine Completed Pneumococcal Vaccine: 50+ Completed Cervical Cancer Screening Discontinued Covid-19 Vaccine Discontinued Assessment and Plan 1. Psychophysiological insomnia (F51.04) - Persistent difficulty - Discontinue Seroquel and hydroxyzine due to lack of efficacy. - Initiate doxepin 3 mg PO at bedtime for 2 weeks, then increase to 6 mg PO at bedtime. - Continue trazodone as previously prescribed. - Patient understands and agrees with the treatment plan. 2. Easy bruising (R23.3) - Noted frequent ecchymosis, particularly on the left wrist, with minimal trauma. - No current use of anticoagulants; patient is on Celebrex. - Ordered coagulation panel to rule out bleeding disorders. - Patient to have labs drawn today. - Discussed thin skin as a contributing factor; patient advised to monitor and report any significant changes. 3. Lumbar radiculopathy (M54.16) - Suspected sciatica based on symptomatology. - Advised continuation of home physical therapy exercises and use of Tylenol as needed for pain management. - We discussed PT, MRI, medication options- patient declines at this time - Patient to follow up with stage settings painter Dr. Epstein for further evaluation and potential interventions. Shanita Green PA-C Recording using Del[employer] software for draft documentation of the visit was discussed with the patient/authorized brewery representative; all questions welcomed and answered. Patient/authorized brewery representative agreed to proceed documented in this encounter [facility] 01-19-2025 Note HNO ID: [id number] Author: MELITA LE LPN Service: ? Author Type: LICENSED NURSE Type: Progress Notes Filed: 01/19/2025 12:14 Note Text: Scan on 01/18/2025 9:18 AM by ProviderJenna PA-C: Consultation - PT/OT/Speech [facility] 01-05-2025 Telephone encounter Note Pt notified of same. Melita Le LPN [facility] 01-05-2025 Miscellaneous Notes Pt notified of paul. Melita Le LPN Xray is negative for fracture. Shanita Green PA-C documented in this encounter [facility] 01-05-2025 Telephone encounter Note Xray is negative for fracture. Shanita Green, PA-C [facility] 01-05-2025 History of Present illness Narrative Radiology Service Progress Note PATIENT NAME: Diony Ramirez DATE OF SERVICE: January 05, 2025 TIME: 10:41 AM PATIENT IDENTITY VERIFICATION COMPLETED USING TWO (2) IDENTIFIERS: Name and Date of confirmed by patient verbally. FALL SCREENING: Has the patient had 2 falls in the last year or 1 fall with injury or currently using an Ambulatory Assistive Device (Walker, Cane, Wheelchair, Crutches, etc.)? No PATIENT GENDER DATA: Assigned female at . status: : No status: NO. PATIENT RELEVANT IMPLANT DATA REVIEWED: Yes PATIENT PRESENTS WITH AN IMPLANTABLE OR ATTACHED ELECTRIC STOP INSTALLER: No RADIOLOGY DEPARTMENT: General X-ray: Exam(s) Completed: Lower Extremity X-Ray(s): Foot, Right PERIPHERAL IV DATA: Not applicable SIGNED BY: RT Berry(Renata) January 05, 2025 10:41 AM documented in this encounter [facility] 01-05-2025 Note HNO ID: [id number] Author: JAMES BREWER RT(R) Service: ? Author Type: Commercial Loan Coordinator Type: Progress Notes Filed: 01/05/2025 10:50 Note Text: Radiology Service Progress Note PATIENT NAME: Diony Ramirez DATE OF SERVICE: January 05, 2025 TIME: 10:41 AM PATIENT IDENTITY VERIFICATION COMPLETED USING TWO (2) IDENTIFIERS: Name and Date of confirmed by patient verbally. FALL SCREENING: Has the patient had 2 falls in the last year or 1 fall with injury or currently using an Ambulatory Assistive Device (Walker, Cane, Wheelchair, Crutches, etc.)? No PATIENT GENDER DATA: Assigned female at . status: : No status: NO. PATIENT RELEVANT IMPLANT DATA REVIEWED: Yes PATIENT PRESENTS WITH AN IMPLANTABLE OR ATTACHED ELECTRIC STOP INSTALLER: No RADIOLOGY DEPARTMENT: General X-ray: Exam(s) Completed: Lower Extremity X-Ray(s): Foot, Right PERIPHERAL IV DATA: Not applicable SIGNED BY: James Brewer, RT(R) January 05, 2025 10:41 AM [facility] 01-05-2025 Note HNO ID: [id number] Author: SHANITA GREEN PA-C Service: ? Author Type: Physician Diesel Locomotive Engineer Type: Progress Notes Filed: 01/05/2025 10:47 Note Text: Chief Complaint Patient presents with: Toe Pain (Toe): Right fourth digit x 1 week HPI Diony Ramirez is a 69 year old female who presents here today for Above Complaints.. Right Foot Pain: - Onset over a week ago after catching house slipper on a throw rug, causing toes to bend. - Pain localized to the fourth toe, described as severe, with tenderness extending behind the toe. - No ecchymosis noted; reports mild swelling. - Ambulation is painful due to toe flexion. - Denies significant pain in other areas of the foot. - High risk for fractures due to poor bone density. Aortic Aneurysm: - History of aortic aneurysm, initially discovered incidentally during a lung scan. - Most recent echocardiogram showed mid ascending aorta at 3.4 cm and distal ascending aorta at 3.5 cm. - Family history of aortic aneurysm in father and cerebral aneurysm in mother. - Concerned about potential hereditary nature of aneurysm. Pulmonary Nodules: - Undergoing annual monitoring for pulmonary nodules by valet runner. - Recent lung scan performed at the hospital; Diony requests confirmation that the report was received. Insomnia: - Difficulty maintaining sleep, waking after 3 hours and unable to return to sleep. - Currently taking trazodone 150 mg, Seroquel 25 mg, hydroxyzine, and OTC melatonin for sleep. - Expresses desire to reduce the number of medications and increase the dosage of the most effective one. - Long-term use of trazodone; Seroquel recently started. - Reports that lower doses of medications are typically ineffective for her. Diet: - Consumes canned vegetables, meat, and potatoes regularly. - Limited fruit intake. Past medical history, appointments, medications, allergies reviewed. Previous Medical History PAST MEDICAL HISTORY Diagnosis Date Abnormal toxicological findings 02/01/2021 Tox screen 01/27/2021 showed no benzos and pos for oxycodone which patient was not on. Patient informed of no further controlled med refills. 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 Chronic anxiety 06/17/2018 Chronic bilateral low back pain with sciatica 07/15/[address] Epstein Degenerative arthritis of lumbar spine 05/06/2014 Ectatic thoracic aorta 12/04/2022 CT done 12/2022 Elevated blood sugar 01/27/2021 Emphysema of lung (HCC) 03/18/2015 Essential hypertension, benign 02/21/2015 Ex-smoker 01/27/2021 Started around 89 and quit 2004. Smoked about 1.5 PPD GERD without esophagitis 09/12/2022 Herpes 01/27/2021 History of 2019 novel coronavirus disease (COVID-19) 01/27/202106/2020 History of small bowel obstruction HSV (herpes simplex virus) anogenital infection 02/08/2016 Living will on file at physician's office 09/27/2022 DPA: Reina Denise (aunt) Lung mass 09/07/2011 Lung nodules 05/30/[address] Suleman Gustafson Medicare annual wellness visit, subsequent 01/27/2021 Medicare Part B: NA Last done: Multiple thyroid nodules 01/27/[address] Vigil and f/u was stable. Told no need for further f/u. 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 Takes mid morning. Substance agreement signed and Tox screen done 12/2020. 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 COLONOSCOPY FLX DX W/COLLJ SPEC WHEN PFRMD 08/19/2006 Repeat in COLONOSCOPY FLX DX W/COLLJ SPEC WHEN PFRMD 06/27/2016 Colonoscopy CRANIOPLASTY SKULL DEF/REPAIR/ BRAIN 09/14/2014 See scanned documents - status post ESOPHAGOGASTRODUODENOSCOPY TRANSORAL DIAGNOSTIC 06/27/2016 EGD ESOPHAGOGASTRODUODENOSCOPY TRANSORAL DIAGNOSTIC 06/30/2018 EGD IANDD ABSCESS CMPLX/MULT 07/2013 Epidural abscess- MSSA LIG/TRNSXJ FLP TUBE ABDL/VAG APPR UNI/BI Tubal ligation PAST SURGICAL HISTORY OF spinal surgery PAST SURGICAL HISTORY OF retinal detachment OD, (2 tears) PAST SURGICAL HISTORY OF 2012 back surgery STRESS TEST NUCLEAR 05/23/2021 negative Family History FAMILY HISTORY Problem Relation Age of Onset Hypertension Mother other (cerebral aneurysm) Mother Colon Polyps Father Hypertension Fathe (more content not included)... [facility] 01-05-2025 History of Present illness Narrative Chief Complaint Patient presents with: Toe Pain (Toe): Right fourth digit x 1 week HPI Diony Ramirez is a 69 year old female who presents here today for Above Complaints.. Right Foot Pain: - Onset over a week ago after catching house slipper on a throw rug, causing toes to bend. - Pain localized to the fourth toe, described as severe, with tenderness extending behind the toe. - No ecchymosis noted; reports mild swelling. - Ambulation is painful due to toe flexion. - Denies significant pain in other areas of the foot. - High risk for fractures due to poor bone density. Aortic Aneurysm: - History of aortic aneurysm, initially discovered incidentally during a lung scan. - Most recent echocardiogram showed mid ascending aorta at 3.4 cm and distal ascending aorta at 3.5 cm. - Family history of aortic aneurysm in father and cerebral aneurysm in mother. - Concerned about potential hereditary nature of aneurysm. Pulmonary Nodules: - Undergoing annual monitoring for pulmonary nodules by valet runner. - Recent lung scan performed at the hospital; Diony requests confirmation that the report was received. Insomnia: - Difficulty maintaining sleep, waking after 3 hours and unable to return to sleep. - Currently taking trazodone 150 mg, Seroquel 25 mg, hydroxyzine, and OTC melatonin for sleep. - Expresses desire to reduce the number of medications and increase the dosage of the most effective one. - Long-term use of trazodone; Seroquel recently started. - Reports that lower doses of medications are typically ineffective for her. Diet: - Consumes canned vegetables, meat, and potatoes regularly. - Limited fruit intake. Past medical history, appointments, medications, allergies reviewed. Previous Medical History PAST MEDICAL HISTORY Diagnosis Date Abnormal toxicological findings 02/01/2021 Tox screen 01/27/2021 showed no benzos and pos for oxycodone which patient was not on. Patient informed of no further controlled med refills. 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 Chronic anxiety 06/17/2018 Chronic bilateral low back pain with sciatica 07/15/[address] Epstein Degenerative arthritis of lumbar spine 05/06/2014 Ectatic thoracic aorta 12/04/2022 CT done 12/2022 Elevated blood sugar 01/27/2021 Emphysema of lung (HCC) 03/18/2015 Essential hypertension, benign 02/21/2015 Ex-smoker 01/27/2021 Started around 89 and quit 2004. Smoked about 1.5 PPD GERD without esophagitis 09/12/2022 Herpes 01/27/2021 History of 2019 novel coronavirus disease (COVID-19) 01/27/202106/2020 History of small bowel obstruction HSV (herpes simplex virus) anogenital infection 02/08/2016 Living will on file at physician's office 09/27/2022 DPA: Reina Chamorrot (aunt) Lung mass 09/07/2011 Lung nodules 05/30/[address] Suleman Gustafson Medicare annual wellness visit, subsequent 01/27/2021 Medicare Part B: NA Last done: Multiple thyroid nodules 01/27/[address] Vigil and f/u was stable. Told no need for further f/u. 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 Takes mid morning. Substance agreement signed and Tox screen done 12/2020. 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 COLONOSCOPY FLX DX W/COLLJ SPEC WHEN PFRMD 08/19/2006 Repeat in COLONOSCOPY FLX DX W/COLLJ SPEC WHEN PFRMD 06/27/2016 Colonoscopy CRANIOPLASTY SKULL DEF/REPAIR/ BRAIN 09/14/2014 See scanned documents - status post ESOPHAGOGASTRODUODENOSCOPY TRANSORAL DIAGNOSTIC 06/27/2016 EGD ESOPHAGOGASTRODUODENOSCOPY TRANSORAL DIAGNOSTIC 06/30/2018 EGD I&D ABSCESS CMPLX/MULT 07/2013 Epidural abscess- MSSA LIG/TRNSXJ FLP TUBE ABDL/VAG APPR UNI/BI Tubal ligation PAST SURGICAL HISTORY OF spinal surgery PAST SURGICAL HISTORY OF 2/ retinal detachment OD, (2 tears) PAST SURGICAL HISTORY OF 2012 back surgery STRESS TEST NUCLEAR 05/23/2021 negative Family History FAMILY HISTORY Problem Relation Age of Onset Hypertension Mother other (cerebral aneurysm) Mother Colon Polyps Father Hypertension Father COPD Father Cancer Father Bladder Cancer other (Past medical history) Father abdominal aneurysm/bladder cancer other (aortic aneurysm) Father Aneurysm Paternal Grandfather Patient Allergies ALLERGIES Allergen Reactions Fish Unknown Horse/Equine Contai* Unknown Lisinopril Cough Shellfish Derived Unknown Current Medications Current Outpatient Medications on File Prior to Visit Medication Sig alendronate (FOSAMAX) 70 mg tablet Take 1 tablet by mouth one time a week. In am with glass of water, on a empty stomach, nothing by mouth or lying down for 30 minutes acyclovir (ZOVIRAX) 400 mg tablet Take 1 tablet by mouth two times a day. QUEtiapine (SEROQUEL) 25 mg tablet Take 1 tablet by mouth daily at bedtime. hydrOXYzine HCl (ATARAX) 10 mg tablet Take 1 tablet by mouth daily at bedtime. Melatonin 5 mg cap Take 2 capsules by mouth daily at bedtime. celecoxib (CELEBREX) 200 mg capsule Take 1 capsule by mouth once daily. traZODone (DESYREL) 150 mg tablet Take 1 tablet by mouth daily at bedtime. amLODIPine (NORVASC) 2.5 mg tablet Take 1 tablet by mouth once daily. Dextromethorphan-guaiFENesin (ROBITUSSIN COUGH-CHEST ESTEFANÍA DM) 5-100 mg/5 mL liqd Take 10 mL by mouth every 4 hours as needed. omeprazole (PRILOSEC) 40 mg capsule Take 1 capsule by mouth once daily. FOLIC ACID ORAL Take by mouth as directed. ZINC ORAL Take by mouth as directed. SYMBICORT 160-4.5 mcg/actuation inhaler BIOTIN ORAL Take 5,000 mcg by mouth. ascorbic acid/collagen hydr (COLLAGEN PLUS VITAMIN C ORAL) Take 1,000 mg by mouth twice daily. albuterol HFA (PROAIR HFA) 90 mcg/actuation inhaler Inhale 2 Puffs as instructed every 4 hours as needed for Wheezing/Shortness of Breath. Ascorbic Acid (VITAMIN C) 1,000 mg TbER Take by mouth. Calcium Carb-Cholecalciferol (CALCIUM 600 WITH VITAMIN D3) 600-200 mg-unit ORAL Tab Take one(1) tablet two(2) times daily. No current facility-administered medications on file prior to visit. Social History Social History Tobacco Use Smoking status: Former Current packs/day: 0.00 Average packs/day: 1.5 packs/day for 15.0 years (22.5 ttl pk-yrs) Types: Cigarettes Start date: 07/31/1990 Quit date: 07/31/2005 Years since quittin.4 Smokeless tobacco: Never Vaping Use Vaping status: Never Used Substance Use Topics Alcohol use: Yes Alcohol/week: 10.0 - 15.0 standard drinks of alcohol Types: 10 - 15 Cans of Beer (12oz) per week Comment: 5-8 beers daily Drug use: No Review of Symptoms REVIEW OF SYSTEMS SEE HPI EXAM: BP 118/82 (BP Site: Left Arm, BP Position: Sitting, BP Cuff Size: Regular Adult) Pulse 77 Temp 36.6 C (97.8 F) Resp 16 Wt 40 kg (88 lb 2 oz) LMP 03/23/2007 SpO2 96% BMI 19.76 kg/m General Appearance: Well appearing, alert, in no acute distress, well-hydrated, well nourished.. Musculoskeletal: tender to left 4th MTP joint. Mild swelling of 4th and 5th toe noted. No erythema. NVI. Health Maintenance List Mammogram Screening due on 07/01/2025 Depression Screening due on 10/01/2025 BP Controlled (<130/80) due on 10/01/2025 Annual PCP Team Chronic Disease Visit due on 01/05/2026 Colorectal Cancer Screening due on 06/27/2026 Bone Density Screening due on 12/28/2026 Diabetes Screening due on 09/24/2027 DTaP,Tdap,Td Vaccine(3 - Td or Tdap) due on 12/18/2028 Lipid Screening due on 09/24/2029 Influenza Vaccine Completed Advance Directive Discussion Completed RSV Vaccine Completed Hepatitis C Screening Completed Shingrix Vaccine Completed Pneumococcal Vaccine: 50+ Completed Cervical Cancer Screening Discontinued Covid-19 Vaccine Discontinued Data reviewed Assessment and Plan 1. Injury of right toe, initial encounter (S67.599C) - Ordered X-ray of the right foot to assess for possible fracture. - Discussed potential treatment options based on X-ray results: louise taping for distal toe fractures or use of a surgical shoe/boot for more proximal fractures. - Patient has a boot at home that can be used if necessary. - Will review X-ray results and determine further management. 2. Psychophysiological insomnia (F51.04) - Current medications include Trazodone 150 mg, Seroquel 25 mg, Hydroxyzine, and Melatonin. - Discontinue Hydroxyzine and Melatonin. - Increase Seroquel to 50 mg; instructed patient to take two 25 mg tablets until new prescription is filled. - Follow-up in one month to reassess sleep quality and medication efficacy. 3. Ectatic thoracic aorta (I77.810) - Recent CT scan report reviewed; no significant changes noted. - Ordered echocardiogram to monitor aortic dimensions; discussed that this is a more definitive test for aneurysm monitoring. - Explained the importance of regular monitoring due to family history of aneurysms. - Patient understands and agrees with the plan. Shanita Green PA-C Recording using [employer] software for draft documentation of the visit was discussed with the patient/authorized brewery representative; all questions welcomed and answered. Patient/authorized brewery representative agreed to proceed documented in this encounter [facility] 01-04-2025 Note HNO ID: [id number] Author: MELITA LE LPN Service: ? Author Type: LICENSED NURSE Type: Progress Notes Filed: 01/04/2025 07:34 Note Text: Scan on 01/03/2025 12:29 AM by ProviderJenna PA-C: CT Scan [facility] 01-04-2025 History of Present illness Narrative Scan on 01/03/2025 12:29 AM by ProviderJenna PA-C: CT Scan documented in this encounter [facility] 01-03-2025 Radiology Diagnostic study note [facility] Imaging Services [address] [place] [id number] Lung Screening MR#: [id number] Acct: [id number] Name: JENA RAMIREZ Rep #: [id number] : 1955 F 69 From: Yoana Lopez MD PCP: Dr. Rito Camp MD Status: [facility] Study:Low Dose CT Lung Screening Date of Exam : 01/01/25 Exam# [id number] Ordering Dr: Tiffanie Dee VOLTAGE TESTER VOLTAGE TESTER-C PROCEDURE: LOW DOSE CT LUNG SCREENING 01/01/2025 REASON FOR EXAM: SMOKER QUIT 2010 TECHNIQUE: Low Dose CT Lung screening without contrast. Coronal and Sagittal reconstructionseries were provided. One or more dose reduction techniques were used (e.g., Automated exposure control, adjustment of the mA and/or kV according to patient size, use of iterative reconstruction technique). REFERENCE LINK: [employer] Lung-RADS RADIATION DOSE SUMMARY: CTDlvol: 2.0 mGy DLP: 61.2 mGycm COMPARISON: CT chest on 01/01/2024 and 05/16/2022. FINDINGS: PULMONARY NODULES: (Only nodules >3 mm are reported) Nodules described below are on series 2 unless otherwise specified. Pulmonary Nodules: Perifissural nodule in the left lower lobe measuring 3 mm (image 116), unchanged Lymph Nodes:Unremarkable Heart and Vasculature:Coronary artery calcifications are noted.Trace atherosclerotic calcifications of the thoracic aorta. Thoracic aorta and pulmonary arteries have normal contours; noncontrast technique limits evaluation. Coronary Artery Calcifications: Present, mild multivessel Lungs and Airways: Apical predominant centrilobular emphysema. Unchanged scarring at the medial aspect of the right lung apex, and at the central aspect of the left lung apex. Pleura:Unremarkable Upper Abdomen:Unremarkable Bones:Degenerative changes and rightward curvature of the thoracic spine. CT/Low Dose CT Lung Screening IMPRESSION: Lung-RADS Category: 2 BENIGN (BASED ON IMAGING FEATURES OR INDOLENT BEHAVIOR). RECOMMEND 12-MONTH SCREENING LDCT. Other Significant Findings: Mild coronary artery calcification (CAC) is present Reading Location: [id number] CC: TRACI Dee; Dr. Rito Camp MD ~ Community [facility] Educator: Signed [facility] 12-29-2024 Telephone encounter Note Pt notified of results and pcp's instructions. Pt verbalizes understanding. Pt would just like to go back on the Fosamax. Pt states she saw endo in the past and they had mentioned the Prolia injection but she states it was too expensive and her insurance won't cover it. Pt uses [facility]. Melita Le LPN [facility] 12-29-2024 Miscellaneous Notes Pt notified of results and pcp's instructions. Pt verbalizes understanding. Pt would just like to go back on the Fosamax. Pt states she saw endo in the past and they had mentioned the Prolia injection but she states it was too expensive and her insurance won't cover it. Pt uses [facility]. Melita Le LPN Let patient know her bone study shows her bone strength has gotten worse. Her 10 year risk of a major bone fracture is 21%. We can either place her back on Fosamax once a week or have her see endo to discuss other alternatives that may be better. documented in this encounter [facility] 12-28-2024 Telephone encounter Note Let patient know her bone study shows her bone strength has gotten worse. Her 10 year risk of a major bone fracture is 21%. We can either place her back on Fosamax once a week or have her see endo to discuss other alternatives that may be better. [facility] 12-28-2024 History of Present illness Narrative Radiology Service Progress Note PATIENT NAME: Diony Ramirez DATE OF SERVICE: December 28, 2024 TIME: 8:52 AM PATIENT IDENTITY VERIFICATION COMPLETED USING TWO (2) IDENTIFIERS: Name and Date of confirmed by patient verbally. FALL SCREENING: Has the patient had 2 falls in the last year or 1 fall with injury or currently using an Ambulatory Assistive Device (Walker, Cane, Wheelchair, Crutches, etc.)? No PATIENT GENDER DATA: Assigned female at . status: : No status: NO. PATIENT RELEVANT IMPLANT DATA REVIEWED: Not Applicable PATIENT PRESENTS WITH AN IMPLANTABLE OR ATTACHED ELECTRIC STOP INSTALLER: No RADIOLOGY DEPARTMENT: Bone Density PERIPHERAL IV DATA: Not applicable SIGNED BY: CLAUDIA Tineo) December 28, 2024 8:52 AM documented in this encounter [facility] 12-28-2024 Note HNO ID: [id number] Author: BASHIR LANDA RT(R) Service: ? Author Type: Technologist Type: Progress Notes Filed: 12/28/2024 09:05 Note Text: Radiology Service Progress Note PATIENT NAME: Diony Ramirez DATE OF SERVICE: December 28, 2024 TIME: 8:52 AM PATIENT IDENTITY VERIFICATION COMPLETED USING TWO (2) IDENTIFIERS: Name and Date of confirmed by patient verbally. FALL SCREENING: Has the patient had 2 falls in the last year or 1 fall with injury or currently using an Ambulatory Assistive Device (Walker, Cane, Wheelchair, Crutches, etc.)? No PATIENT GENDER DATA: Assigned female at . status: : No status: NO. PATIENT RELEVANT IMPLANT DATA REVIEWED: Not Applicable PATIENT PRESENTS WITH AN IMPLANTABLE OR ATTACHED ELECTRIC STOP INSTALLER: No RADIOLOGY DEPARTMENT: Bone Density PERIPHERAL IV DATA: Not applicable SIGNED BY: RT Rivka(R) December 28, 2024 8:52 AM [facility] 12-17-2024 Evaluation note Diagnosis Onset Date Resolution Dysphagia acute December 17 10:25am Encounter for screening colonoscopy acute December 17, 2024 10:25am Family history of colon cancer in father acute December 17 10:25am [facility] Work Phone: 1(150) 845-428504-04-2025 Telephone encounter Note* Telephone Encounter - Mitzy Dewey LPN - 12/04/2024 10:48 AM EDT Phoned patient and she reported she was aware of results and she had referral already placed, testing scheduled and ST ordered already. She stated she cancelled her follow up with Dr Camp but will let us know if she needs anything else. Mitzy Dewey LPN [facility]04-04-2025 Miscellaneous Notes* Telephone Encounter - Mitzy Dewey LPN - 12/04/2024 10:48 AM EDT Phoned patient and she reported she was aware of results and she had referral already placed, testing scheduled and ST ordered already. She stated she cancelled her follow up with Dr Camp but will let us know if she needs anything else. Mitzy Dewey LPN * Telephone Encounter - Victor M Dodge MD - 12/02/2024 11:27 AM EDT Barium swallow results reviewed. Would have patient follow recommendations as written. Let us know if they need speech therapy referral order. Keep f/u with Dr. Camp next week. * Telephone Encounter - Aury Newton MA - 12/02/2024 11:24 AM EDT Scan on 11/30/2024 10:14 AM by Provider, External, PA-C: GI Review results. Aury Newton MA' [facility] Telephone encounter Note * Telephone Encounter - Victor M Dodge MD - 12/02/2024 11:27 AM EDT Barium swallow results reviewed. Would have patient follow recommendations as written. Let us know if they need speech therapy referral order. Keep f/u with Dr. Camp next week. [facility] Work Phone: [phone]) 657-322504-02-2025 Telephone encounter Note* Telephone Encounter - Aury Newton MA - 12/02/2024 11:24 AM EDT Scan on 11/30/2024 10:14 AM by Provider, External, PAErnieC: GI Review results. Aury Newton MA' [facility]04-01-2025 Telephone encounter Note* Telephone Encounter - Mila Kidd MA - 12/01/2024 3:12 PM EDT Pt notified and requested it be sent to Dr jackson office. Faxed info. Mila Kidd MA [facility]04-01-2025 Miscellaneous Notes* Telephone Encounter - Mila Kidd MA - 12/01/2024 3:12 PM EDT Pt notified and requested it be sent to Dr jackson office. Faxed info. Mila Kidd MA * Telephone Encounter - Alex Brown APRN.CNP - 12/01/2024 2:48 PM EDT Please let patient know I have reviewed her swallow study and placed GI referral. * Telephone Encounter - Kasey Becker LPN - 12/01/2024 1:39 PM EDT Patient calling said she had swallowing study done at [facility] on 11/24/2024. She is upset that PCP has not gotten copy of the results yet. She called [facility] med recs dept yesterday and was told being faxed as she was talking to the lady. She talking about bringing her copy to the office and have copy made for PCP. She was told needs Gastro consult, she was hoping to stay with [facility] if PCP wants to give thereferral. Please advise [facility] Telephone encounter Note * Telephone Encounter - Alex Brown APRN.CNP - 12/01/2024 2:48 PM EDT Please let patient know I have reviewed her swallow study and placed GI referral. [facility]04-01-2025 Telephone encounter Note* Telephone Encounter - Kasey Becker LPN - 12/01/2024 1:39 PM EDT Patient calling said she had swallowing study done at [facility] on 11/24/2024. She is upset that PCP has not gotten copy of the results yet. She called [facility] med recs dept yesterday and was told being faxed as she was talking to the lady. She talking about bringing her copy to the office and have copy made for PCP. She was told needs Gastro consult, she was hoping to stay with [facility] if PCP wants to give thereferral. Please advise T [facility]03-31-2025 Telephone encounter Note* Telephone Encounter - Angella Stevens - 11/30/2024 10:55 AM EDT Prescription Refill Information The patient has been identified by name and date of : Yes Caregiver verified no other encounters exist for this prescription request: Yes Caregiver confirmed with patient/requestor that no other refills are due, in the near future, with this provider at this time: Yes The last office visit in the department: 10-01-24 Does the patient have a future office visit with this provider/department: Yes Requested Prescriptions Pending Prescriptions Disp Refills acyclovir (ZOVIRAX) 400 mg tablet 180 tablet 1 Sig: Take 1 tablet by mouth two times a day. Angella Kirkland November 30, 2024 10:55 AM T [facility] Work Phone: [phone] Miscellaneous Notes* Telephone Encounter - Angella Stevens - 11/30/2024 10:55 AM EDT Prescription Refill Information The patient has been identified by name and date of : Yes Caregiver verified no other encounters exist for this prescription request: Yes Caregiver confirmed with patient/requestor that no other refills are due, in the near future, with this provider at this time: Yes The last office visit in the department: 10-01-24 Does the patient have a future office visit with this provider/department: Yes Requested Prescriptions Pending Prescriptions Disp Refills acyclovir (ZOVIRAX) 400 mg tablet 180 tablet 1 Sig: Take 1 tablet by mouth two times a day. Angella Kirkland November 30, 2024 10:55 AM [facility] Procedure note [facility] Speech Pathology [address] [place] [address] Modified Barium Swallow Study MR#: [id number] Acct: [id number] Name: JENA RAMIREZ Rep #:[id number] : [id number] 69 From: Krysta King, [facility] [employer] Modified Barium Swallow Patient Information Study Date: 11/24/24 Study Time: 12:45 Direct Billable Minutes: 70 Total Minutes procedure & reportin Diagnosis: Dysphagia R13.10 Referring Physician: Rito Camp Reason for Referral: assess swallow function, assess risk for aspiration, and determine recommendations for least restrictive diet textures and compensatory strategies to facilitate safe po intake. Medical History: Patient recently seen at [facility] for outpatient swallowing evaluation 10/20/2024 to address dysphagia. Per bedside swallowing evaluation history, patient reported that she is coughing or choking 2-3 times per week with no pattern on foods, liquid or it can also be on just saliva. She reports about half of those episodes she is able to cough up bits of food. In 2017 and 2017 she had esophageal impactions and went to ER for removal. She has a historyof COPD and Asthma also. Patient has not been evaluated by GI since being in ER per her report. The patient was recommended for regular textures / thin liquids w/ aspiration precautions (Reduce Distractions, Small Sips & Bites when Eating, Chew thoroughly). Patient was also recommended for MBSS to further assess swallow function and to determine appropriate dysphagia interventions. Of note, patient has an allergy to products containing fish and shellfish derived allergy. Other history: Vitamin D toxicity, Former smoker, Asthma, COPD , HTN, Partial small bowel obstruction, COVID-19, Emphysema of lung, Benign essential HTN, Lungmass, Climacteric Lumbar spinal stenosis,Peripheral neuropathy, Recurrent manicdisorder, Generalized hyperhidrosis, RODRIGUEZ, Anxiety associated with depression, Chronic pain disorder, Sleep-related breathing disorder, Stage 2 moderate COPD by GOLD classification, Esophageal obstruction due to food impaction, Arnold-Chiari deformity, Alcohol abuse, Osteoporosis Current Diet Ordered: Regular / Thin Dentition: Natural Teeth and Missing Teeth (implants, still missing posterior dentition) Mental Status: WNL Respiratory Status: Oxygenating on Room Air Penetration-Aspiration Scale Penetration-Aspiration Scale: OBJECTIVE ASSESSMENT OF SWALLOW FUNCTION (QUANTITATIVE ? PER TRIAL): PENETRATION / ASPIRATION SCALE (PRINGLE): 1 = does not enter airway 2 = enters airway/above vocal folds/ejected 3 = enters airway/above vocal folds/not ejected 4 = enters airway/contacts vocal folds/ejected 5 = enters airway/contacts vocal folds/not ejected 6 = enters airway/below vocal folds/ejected 7 = enters airway/below vocal folds/not ejected despite effort 8 = enters airway/below vocal folds/no effort VIDEOFLOROSCOPIC SCALE SCORE (PRINGLE): Grade I = aspiration of material that has penetrated into the laryngeal vestibule, intact cough reflex Grade II = aspiration < 10 % of the bolus, intact cough reflex Grade III = aspiration of < 10 % of the bolus, reduced cough reflex or aspiration of > 10 % of the bolus, intact cough reflex Grade IV = aspiration of > 10 % of the bolus, reduced cough reflex Penetration-Aspiration Scale Score Thin Liquid via teaspoon: Result: 2= enter airway/above vocal folds/ejected Thin Liquid via teaspoon Trial 2: Result: 1= does not enter airway Thin Liquid via large single sip: cup: Result: 2= enter airway/above vocal folds/ejected Thin Liquid via sequential sips: cup: Result: 2= enter airway/above vocal folds/ejected Comment: Esophageal screen - Complete clearance. Pudding via teaspoon: Result: 1= does not enter airway Comment: Esophageal screen - Retention of portion of pudding bolus throughout middle and lower esophagus. Thin Liquid via single sip: straw: Result: 2= enter airway/above vocal folds/ejected Comment: Esophageal screen - Complete clearance. 1/2 Cookie coated in Barium Pudding: Result: 1= does not enter airway Comment: Esophageal screen - Minimal retention in middle esophagus. Thin Liquid via sequential sips:straw: Result: 2= enter airway/above vocal folds/ejected Comment: Esophageal screen - Complete clearance. Oral Phase Labial Seal: No Labial Escape Tongue Control During Bolus Hold: Posterior escape of greater than half of bolus Bolus Preparation/Mastication: Disorganized chewing/mashing with solid pieces ofbolus unchewed (Timely mastication; however, small pieces of cookie appeared un-chewed.) Bolus Transport/Lingual Motion: Delayed initiation of tongue motion Oral Residue: Residue collection on oral structures Pharyngeal Phase Initiation of Pharyngeal Swallow: Bolus head in pyriforms Soft Palate Elevation: Trace column of contrast/air between soft palate and pharyngeal wall Laryngeal Elevation: Comp. Superior move thyroid cart w/comp. apprx arytenoid cart-epig pet Anterior Hyoid Excursion: Complete anterior movement Epiglottic Movement: Complete inversion Laryngeal Vestibule Closure at Height of Swallow: Incomplete; narrow column of air/contrast in laryngeal vestibule (trace laryngeal penetration of liquids w/ complete ejection after the swallow) Pharyngeal Stripping Wave: Present - complete Pharyngoesophageal Segment Opening: Complete distension and complete duration; no obstruction of flow Tongue Base Retraction: Trace column of contrast between tongue base & post. pharyngeal wall Pharyngeal Residue: Trace residue within or on pharyngeal structures Esophageal Phase Esophageal Clearance: Esophageal retention Diagnosis/Impression Diagnosis: Mild oropharyngeal dysphagia R13.12; Mild esophageal dysphagia R13.14 Impression: Mild oral deficits, including... -Loss of liquids to the pyriforms (>1/2 the bolus) prior to swallow onset. -Delayed tongue motion for A-P transport. -Timely mastication; however, small pieces of cookie appeared un-chewed. Mild pharyngeal deficits, including... -Delayed swallow onset. -Consistent, trace laryngeal penetration of liquids w/ complete ejection. No aspiration observed. Esophageal deficits... -Retention of pudding in middle and lower esophagus, which fully cleared w/ thinliquid wash. -Small CP bar at the level of C5-C6, which did not impact bolus clearance through the UES. Recommendations Diet: Regular Textures and Thin Liquids Compensatory Strategies: Small Bites (Chew thoroughly), Small Sips, Slow Rate, Alternate bites/solids and sips/liquids (Take a drink after every 1-2 bites), Sitting upright (During meal and 30-60min after) and Minimize/decrease distractions Recommend Repeat Modified Barium Swallow: No Need for Skilled Speech Therapy Services: Yes Comment: Follow up dysphagia therapy sessions recommended for... -Education re: compensatory strategies to decrease risk for aspiration and reflux aspiration. -Train pt in Freddy to improve mild delay in swallow onset. -GERD education. When this WELT STITCH CLEANER recommended liquid wash between bites, the patient reported she onlydrinks her beer before or after a meal. WELT STITCH CLEANER recommended water to wash foods during the meal. The patient stated intake of several foods/drinks that will trigger GERD during the study, including burgers, raw onion, and beer. Recommended Referrals: GI Consult (Would recommend getting established w/ GI as an OP due to esophageal retention during MBSS and hx of esophageal impaction.) Education Completed: 1. Described result of evaluation., 2. Pt understands evaluation & agrees with goals and treatment plan. and 7. Pt requires further education on strategies & risks. Status Active ST Patient: Active Contact Information [facility] Speech Therapy:: Krysta Tatum M.A. CCC-WELT STITCH CLEANER? Speech-Language Pathologist?? [facility] [address] [place] [address]? [email or web address]?? [phone] 11/24/24 1356 KELSEY Niño-WELT STITCH CLEANER> Date/Time Krysta Tatum M.A. CCC-WELT STITCH CLEANER Co-Signature Required for all Medicare patients Date/Time Co-Signature CC: ~ [facility]03-11-2025 NoteHNO ID: [id number] Author: MELITA LE LPN Service: ? Author Type: LICENSED NURSE Type: Progress Notes Filed: 11/10/2024 12:54 Note Text: Scan on 11/10/2024 9:40 AM by ProviderJenna PA-C: [facility]ation [facility] History of Present illness Narrative* Melita Le LPN - 11/10/2024 12:54 PM EDT Scan on 11/10/2024 9:40 AM by Jenna Garcias PA-C: Consultation - Anesthesia/Pain documented in [facility] encounterPark[facility] Telephone encounter Note * Telephone Encounter - Mary Ann Gamboa - 11/09/2024 10:23 AM EDT Physician: Naina Call from patient requesting refill. Please Call in Last OV: 08/03/24 with Bran Future OV: 12/08/24 with Naina Requested Prescriptions Pending Prescriptions Disp Refills QUEtiapine (SEROQUEL) 25 mg tablet 30 tablet 1 Sig: Take 1 tablet by mouth daily at bedtime. Pharmacy Name: [facility] Phone #: [phone] Mary Ann Segoviachristellemimi [facility]2025 Miscellaneous Notes* Telephone Encounter - Mary Ann Gamboa - 11/09/2024 10:23 AM EDT Physician: Naina Call from patient requesting refill. Please Call in Last OV: 08/03/24 with Bran Future OV: 12/08/24 with Naina Requested Prescriptions Pending Prescriptions Disp Refills QUEtiapine (SEROQUEL) 25 mg tablet 30 tablet 1 Sig: Take 1 tablet by mouth daily at bedtime. Pharmacy Name: [facility] Phone #: [phone] Mary Ann Segoviachristellemimi documented in this encounterParkwood Hospital03-06-2025 NoteHNO ID: [id number] Author: ?, ?, ? Service: ? Author Type: ? Type: Progress Notes Filed: 11/05/2024 14:37 Note Text: POPULATION HEALTH NAVIGATION OUTREACH Action/[facility] Support: Called pt to schedule an appt in Pain Management. Lvm for pt to call [phone] for scheduling. Any agent can assist. Reason for Outreach Care Gap/HCC or Scheduling Wellness Visits Care Gaps due: N/A Patient Contacted: Unable or unnecessary to reach patient: Left message [employer] message sent Navigation Signature: Sierra Angeles November 05, 2024 2:36 [facility]03-06-2025 History of Present illness Narrative* Sierra Angeles - 11/05/2024 2:36 PM EST POPULATION HEALTH NAVIGATION OUTREACH Action/[facility] Support: Called pt to schedule an appt in Pain Management. Lvm for pt to call [phone] for scheduling. Any agent can assist. Reason for Outreach Care Gap/HCC or Scheduling Wellness Visits Care Gaps due: N/A Patient Contacted: Unable or unnecessary to reach patient: Left message JAYS message sent Navigation Signature: Sierra Angeles November 05, 2024 2:36 PM documented in this encounterParkwood Hospital03-06-2025 NotePatient Outreach (NETNAV) DIONY RAMIREZ ([id number]) 1955 F Date Time Provider Department 11/05/24 NO PCP (HIST) NETNAV During your visit today, we recorded the following information about you: Sierra Angeles 11/05/2024 2:37 PM Signed POPULATION HEALTH NAVIGATION OUTREACH Action/[facility] Support: Called pt to schedule an appt in Pain Management. Lvm for pt to call [phone] for scheduling. Any agent can assist. Reason for Outreach Care Gap/HCC or Scheduling Wellness Visits Care Gaps due: N/A Patient Contacted: Unable or unnecessary to reach patient: Left message JAYS message sent Navigation Signature: Sierra Angeles November 05, 2024 2:36 PM Allergies As of Date: 11/05/2024 Noted Allergy Reaction FISH 06/23/2005 16 - Unknown HORSE/EQUINE CONTAINING PRODUCTS 08/30/2023 16 - Unknown LISINOPRIL 12/07/2015 3 - Cough SHELLFISH DERIVED 08/30/2023 16 - Unknown Date Reviewed: 10/01/2024 Reviewed by: Rito Camp MD - Fully Assessed Prescriptions as of 11/05/2024 - hydrOXYzine HCl (ATARAX) 10 mg tablet Take 1 tablet by mouth daily at bedtime. - Melatonin 5 mg cap Take 2 capsules by mouth daily at bedtime. - QUEtiapine (SEROQUEL) 25 mg tablet Take 1 tablet by mouth daily at bedtime. - celecoxib (CELEBREX) 200 mg capsule Take 1 capsule by mouth once daily. - traZODone (DESYREL) 150 mg tablet Take 1 tablet by mouth daily at bedtime. - amLODIPine (NORVASC) 2.5 mg tablet Take 1 tablet by mouth once daily. - Dextromethorphan-guaiFENesin (ROBITUSSIN COUGH-CHEST ESTEFANÍA DM) 5-100 mg/5 mL liqd Take 10 mL by mouth every 4 hours as needed. - acyclovir (ZOVIRAX) 400 mg tablet Take 1 tablet by mouth two times a day. - omeprazole (PRILOSEC) 40 mg capsule Take 1 capsule by mouth once daily. - FOLIC ACID ORAL Take by mouth as directed. - ZINC ORAL Take by mouth as directed. - SYMBICORT 160-4.5 mcg/actuation inhaler - BIOTIN ORAL Take 5,000 mcg by mouth. - ascorbic acid/collagen hydr (COLLAGEN PLUS VITAMIN C ORAL) Take 1,000 mg by mouth twice daily. - albuterol HFA (PROAIR HFA) 90 mcg/actuation inhaler Inhale 2 Puffs as instructed every 4 hours as needed for Wheezing/Shortness of Breath. - Ascorbic Acid (VITAMIN C) 1,000 mg TbER Take by mouth. - Calcium Carb-Cholecalciferol (CALCIUM 600 WITH VITAMIN D3) 600-200 mg-unit ORAL Tab Take one(1) tablet two(2) times daily. Problem List As Of Date 11/05/2024 Noted Resolved Chronic interstitial cystitis [N30.10] 04/08/2006 Adjustment disorder with depressed mood [F43.21]05/20/2006 09/21/2019 Insomnia, unspecified [G47.00] 05/20/2006 Generalized hyperhidrosis [R61] 05/20/2006 Contact dermatitis and other eczema, due to uns*02/05/2008 12/07/2015 Cervicalgia [M54.2] 07/26/2008 09/21/2019 Pain in joint, shoulder region [M25.519] 07/26/2008 03/18/2017 Manic disorder, recurrent episode, moderate (HC*08/18/2008 Contact dermatitis and other eczema due to othe*02/03/2009 12/07/2015 Disorders of bursae and tendons in shoulder reg*02/26/2009 12/07/2015 Lumbar spinal stenosis [M48.061] 08/05/2009 Climacteric [N95.1] 01/13/2010 08/07/2016 Lung mass [R91.8] 09/07/2011 09/21/2019 Postmenopausal atrophic vaginitis [N95.2] 05/01/2012 Heavy alcohol use [F10.90] 01/14/2013 Epidural abscess [G06.2] 09/16/2013 04/28/2014 Chest pain, atypical [R07.89] 12/15/2013 04/28/2014 SOB (shortness of breath) [R06.02] 12/15/2013 04/28/2014 Degenerative arthritis of lumbar spine [M47.816]05/06/2014 Arnold-Chiari malformation (HCC) [Q07.00] 09/22/2014 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] 09/22/2014 Cervical spondylosis without myelopathy [M47.81*02/21/2015 Essential hypertension, benign [I10] 02/21/2015 Emphysema of lung (HCC) [J43.9] 03/18/2015 Osteoporosis [M81.0] 09/01/2015 Overactive bladder [N32.81] 09/01/2015 HSV (herpes simplex virus) anogenital infection*02/08/2016 09/21/2019 Asthma with COPD with exacerbation (HCC) [J44.1]09/05/2016 Nocturnal muscle cramps [R25.2] 09/11/2016 09/21/2019 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] 10/10/2016 09/21/2019 Carpal tunnel syndrome, right [G56.01] 01/03/2017 09/21/2019 Chronic anxiety [F41.9] 06/17/2018 Lumbar radiculopathy [M54.16] 04/19/2020 Herpes [B00.9] 01/27/2021 Ex-smoker [Z87.891] 01/27/2021 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] 01/27/2021 History of 2019 novel coronavirus disease (COVI*01/27/2021 Multiple thyroid nodules [E04.2] 01/27/2021 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] 01/27/2021 Medicare annual wellness visit, subsequent [Z00*01/27/2021 Medication management [Z79.899] 01/27/2021 Elevated blood sugar [R73.9] 01/27/2021 Abnormal toxicological findings [R89.2] 02/01/2021 Lung nodules [R91.8] 05/30/2021 GERD without esophagitis [K21.9] 09/12/2022 Living will on file at physician's office [Z78.*09/27/2022 Advance directive discussed with patient [Z71.8*09/27/2022 Ectatic thoracic ao (more content not included)...[facility] 11-04-2024 Telephone encounter Note* Telephone Encounter - Rosita Melgoza RN - 11/04/2024 7:03 PM EST Office notes from 08/03/24 and 10/01/24, consult order, hip x ray from 08/03/24, demographics printed and faxed to Dr. Montilla's office at [phone]. Called pt and notified that she should be able tocontact Dr. Montilla's office for an appt tomorrow. [facility]03-[facility] Miscellaneous Notes* Telephone Encounter - Rosita Melgoza RN - 11/04/2024 7:03 PM EST Office notes from 08/03/24 and 10/01/24, consult order, hip x ray from 08/03/24, demographics printed and faxed to Dr. Montilla's office at [phone]. Called pt and notified that she should be able tocontact Dr. Montilla's office for an appt tomorrow. * Telephone Encounter - Rito Camp MD - 11/04/2024 4:13 PM EST Order placed for consult to Dr. Epstein. Please send copy of office note from 10/01/2024 and 08/03/2025 along with the hip x-ray from 08/03/2024. * Telephone Encounter - Rosita Melgoza RN - 11/04/2024 3:35 PM EST Pt calling in and states that her pain in her left hip is getting worse. States she has been dealing with this for a long time. Now the pain is in her left buttock and going down her left leg. Pt states she is tired of the pain and is requesting a referral to Dr. Epstein for pain management. She states she went to physical therapy about 3 times with no change or relief and has been doing exercises at home with no relief. Pt states she already talked to Dr. Epstein's office and they need a referral along with her x-ray report. If Dr. Camp okays it, pt asking if she needs to come for her follow up appt on 12/08 for the hip pain? Pt states the Celecoxib that Dr. Camp prescribed is not helping either. documented in this encounterParkwood Hospital03-05-2025 Telephone encounter Note * Telephone Encounter - Rito Camp MD - 11/04/2024 4:13 PM EST Order placed for consult to Dr. Epstein. Please send copy of office note from 10/01/2024 and 08/03/2025 along with the hip x-ray from 08/03/2024. [facility]03-05-2025 Telephone encounter Note* Telephone Encounter - Rosita Melgoza RN - 11/04/2024 3:35 PM EST Pt calling in and states that her pain in her left hip is getting worse. States she has been dealing with this for a long time. Now the pain is in her left buttock and going down her left leg. Pt states she is tired of the pain and is requesting a referral to Dr. Epstein for pain management. She states she went to physical therapy about 3 times with no change or relief and has been doing exercises at home with no relief. Pt states she already talked to Dr. Epstein's office and they need a referral along with her x-ray report. If Dr. Camp okays it, pt asking if she needs to come for her follow up appt on 12/08 for the hip pain? Pt states the Celecoxib that Dr. Camp prescribed is not helping either. [facility] Telephone encounter Note* Telephone Encounter - Melita Le LPN - 11/02/2024 10:23 AM EST Prescription Refill Information The patient has been identified by name and date of : Yes Caregiver verified no other encounters exist for this prescription request: Yes Caregiver confirmed with patient/requestor that no other refills are due, in the near future, with this provider at this time: Yes The last office visit in the department: 10/01/24 Does the patient have a future office visit with this provider/department: Yes Requested Prescriptions Pending Prescriptions Disp Refills hydrOXYzine HCl (ATARAX) 10 mg tablet 90 tablet 3 Sig: Take 1 tablet by mouth daily at bedtime. Melita Le LPN November 02, 2024 10:23 AM [facility]03-03-2025 Miscellaneous Notes* Telephone Encounter - Melita Le LPN - 11/02/2024 10:23 AM EST Prescription Refill Information The patient has been identified by name and date of : Yes Caregiver verified no other encounters exist for this prescription request: Yes Caregiver confirmed with patient/requestor that no other refills are due, in the near future, with this provider at this time: Yes The last office visit in the department: 10/01/24 Does the patient have a future office visit with this provider/department: Yes Requested Prescriptions Pending Prescriptions Disp Refills hydrOXYzine HCl (ATARAX) 10 mg tablet 90 tablet 3 Sig: Take 1 tablet by mouth daily at bedtime. Melita Le LPN November 02, 2024 10:23 AM * Telephone Encounter - Rakel Newton - 11/02/2024 10:00 AM EST Patient has been identified by name and date of : Yes, Provider Dr. Camp Date 11/02/24 Time 10:01am Patient phones for refill(s): Requested Prescriptions Pending Prescriptions Disp Refills hydrOXYzine HCl (ATARAX) 10 mg tablet 90 tablet 3 Sig: Take 1 tablet by mouth daily at bedtime. Date of last office visit in primary care: 10/01/2024 Date of next office visit in primary care: 12/08/2024 Please advise. Thank you. Rakel Newton. documented in this encounterParkwood Hospital03-03-2025 Telephone encounter Note * Telephone Encounter - Rakel Newton - 11/02/2024 10:00 AM EST Patient has been identified by name and date of : Yes, Provider Dr. Camp Date 11/02/24 Time 10:01am Patient phones for refill(s): Requested Prescriptions Pending Prescriptions Disp Refills hydrOXYzine HCl (ATARAX) 10 mg tablet 90 tablet 3 Sig: Take 1 tablet by mouth daily at bedtime. Date of last office visit in primary care: 10/01/2024 Date of next office visit in primary care: 12/08/2024 Please advise. Thank you. Rakel Newton. [facility]02-24-2025 Telephone encounter Note* Telephone Encounter - Elana Waller PSS - 10/26/2024 4:27 PM EST CD READY FOR CLINICAL NURSE LEADER AT [facility] Pt is aware [facility]02-24-2025 Miscellaneous Notes* Telephone Encounter - Elana Waller PSS - 10/26/2024 4:27 PM EST CD READY FOR CLINICAL NURSE LEADER AT [facility] Pt is aware * Telephone Encounter - AndresTruman - 10/26/2024 1:20 PM EST Patient is requesting her HIP xray from 08/03/24 be placed on a disc. Thank you. documented in this encounterParkwood Hospital02-24-2025 Telephone encounter Note * Telephone Encounter - Truman Campos - 10/26/2024 1:20 PM EST Patient is requesting her HIP xray from 08/03/24 be placed on a disc. Thank you. [facility]02-21-2025 NoteHNO ID: [id number] Author: AURY NEWTON MA Service: ? Author Type: Food Preparation Supervisor Type: Progress Notes Filed: 10/23/2024 14:48 Note Text: Order/Demo faxed to [facility]. Referral placed. Aury Newton [facility]02-21-2025 NoteHNO ID: [id number] Author: RITO CAMP MD Service: ? Author Type: Physician Type: Progress Notes Filed: 10/23/2024 14:13 Note Text: Order readyCommunity [facility]02-21-2025 NoteHNO ID: [id number] Author: KASEY BECKER LPN Service: ? Author Type: LICENSED NURSE Type: Progress Notes Filed: 10/23/2024 11:00 Note Text: Patient calling said the Speech Therapist did not have the order at [facility] for her to schedule appt. So patient is asking if PCP could give the order for the Barium swallow/cookie swallow and fax it to [facility] please. Patient phone number is [phone]. Pending order, needs diagnosis. [facility]25 NoteHNO ID: [id number] Author: AURY NEWTON MA Service: ? Author Type: Food Preparation Supervisor Type: Progress Notes Filed: 10/23/2024 09:21 Note Text: Spoke with patient and she indicated that the tech who completed the test would be sending an order. Patient has not heard from anyone one scheduling. Gave patient the scheduling number and told her if there is an issue with needing an order to let us know and we can send over. Aury Newton, [facility]02-18-2025 NoteHNO ID: [id number] Author: RITO CAMP MD Service: ? Author Type: Physician Type: Progress Notes Filed: 10/20/2024 16:10 Note Text: Find out from speech therapy If I need to order the modified Barium Swallow/Cookie swallow (MBSS) or do they get it set up?[facility]02-18-2025 History of Present illness Narrative* Rito Camp MD - 10/20/2024 4:09 PM EST Find out from speech therapy If I need to order the modified Barium Swallow/Cookie swallow (MBSS) or do they get it set up? * Melita Le LPN - 10/20/2024 1:59 PM EST Scan on 10/20/2024 1:01 PM by ProviderJenna PA-C: Consultation - PT/OT/Speech documented in this encounterParkwood Hospital02-18-2025 NoteHNO ID: [id number] Author: MELITA LE LPN Service: ? Author Type: LICENSED NURSE Type: Progress Notes Filed: 10/20/2024 13:59 Note Text: Scan on 10/20/2024 1:01 PM by ProviderJenna PA-C: Consultation - PT/OT/SpeechCommunity [facility] Hospital02-11-2025 History of Present illness Narrative* Mary Ann Oscar, PT - 10/13/2024 10:48 AM EST Program_ID:[id number] Access Code: [email or web address] URL: [email or web address] Date: 10-13-2024 Prepared By: Mary Ann Oscar Program Notes Exercises - Supine Double Knee to Chest - 2-3 x daily - 7 x weekly - 1 sets - 3 reps - Supine Single Knee to Chest Stretch - 2-3 x daily - 7 x weekly - 1 sets - 3 reps - Seated Flexion Stretch - 2-3 x daily - 7 x weekly - 4 sets - 10 reps - Seated Transversus Abdominis Bracing - 1 x daily - 7 x weekly - 4 sets - 10 reps * Mary Ann Oscar, PT - 10/13/2024 10:19 AM EST Episode Visit Count: 2 Therapist That Will Accept/Oversee The Plan Of Care: Mary Ann Oscar Start of Care Date: 09/29/24 Onset Date: 03/29/24 Plan of Care Certification Date: 09/29/24 Next Certification Due Date: 11/10/24 REHABILITATION AND SPORTS THERAPY PHYSICAL THERAPY TREATMENT NOTE ASSESSMENT: Diony Ramirez tolerated the session with no issues. She demonstrated improvements in with low back and hip symptoms in the supine postion as well as completing lumbar flexion based exercises.. The patient will continue to benefit from ongoing skilled physical therapy to progress toward set goals. Current Frequency: 1x/week PLAN FOR NEXT VISIT: assess pt. self management of symptoms with repeated lumbar flexion and TA activation in seated position SUBJECTIVE: Pt. reports that she started doing the exercises as rx'd. Pt. does not notice any change. She stopped doing the exercises due to the pain in the hip. Pt. admits she pushes herself to walkin her basement due to fear that if she rests that she will be someone who lies around. Pt. had notbeen doing the RLE single KTC, just the LLE. Patient Goals: reduce back and hip pain Pain: Pain Pain Level: 8 Pain Location: Hip - Left Description: Aching Pain Location 2: Low Back/Lumbar Spine- Midline Description 2: Aching Post Treatment Pain Post Treatment Pain Level: Better Post Treatment Pain Location: Hip - Left Post Treatment Pain Score 2: (better) Post Treatment Pain Location 2: Low Back/Lumbar Spine - Left OBJECTIVE MEASURES WITH LEVEL OF FUNCTION: TREATMENT: Therapeutic Exercise: 1: scifit upright stepper seat 10, level 3, 1:1 throughout, subjective collected 2: seated lumbar flexion 4x10 3: laying supine 1 min - hip symptoms resolve, low back symptoms improve (pt. reports somewhat better) 4: laying supine S KTC stretch 3x30 sec each side (pt. reports somewhat better) 5: B KTC stretch 3x30 sec 6: seated TA activation 4x10 7: seated abdominal bracing BUE pressing down on the LEs 2x5, 10 sec hold Skilled Intervention: Patient was educated in proper exercise technique and purpose for exercises. Skilled judgment was used in selection of appropriate interventions. Provided written instruction for home exercise program to facilitate proper performance and compliance. Correct performance of therapeutic exercises was facilitated with verbal, visual, and tactile cuing. Educated patient on rationale for performing exercises in regards to decreasing fatigue , includingbalance, increase ease of ADL, and ROM and function . Patient education as noted. Self-Snf Management: 1: encouraged taking rest before pt. body no longer even allows her to push herself. 2: discussed goal to manage low back pain rather than do nothing while symptoms do not change 3: discussed goal of determining at direction of movement that the low back responds well to at this point 4: advised carrying a bed laborer purse, be sure to switch sides Skilled Intervention: Skilled judgment in the selection of proper modification for activity of daily living/home management based on clinical presentation, deficits, and needs. Educated the patient regarding recommendations and provided written instruction to facilitate compliance. Provided written instruction for activities of daily living techniques to facilitate proper performance and compliance. Reviewed patient specific diagnosis in relation to activities of daily living/home management. Activity progression based on professional judgement. Moderate verbal cues for maintaining neutral spine alignment. Provided written instruction for home program to facilitate proper performance and compliance. Correct performance of home program was facilitated with verbal, visual, and tactile cueing. Billing Therapeutic Exercise Treatment Minutes: 38 Self-Care/Home Management Treatment Minutes: 10 Skilled Treatment Time Minutes (timed and untimed codes): 48 Total Session Time (minutes): 48 Session Start Time : 1018 Session Stop Time : 1106 Mary Ann Oscar PT documented in this encounterParkwood Hospital02-11-2025 NoteHNO ID: [id number] Author: MARY ANN OSCAR PT Service: ? Author Type: Physical Therapist Type: Progress Notes Filed: 10/27/2024 10:33 Note Text: 10/27/2024 [facility] REHABILITATION AND SPORTS THERAPY PHYSICAL THERAPY DISCONTINUANCE OF CARE Plan of Care Period: Start of Care Date: 09/29/24 Last Visit Date: 10/13/2024 Therapy Program: The following is a summary of the interventions provided for this episode of care; Therapeutic exercise and Self-longterm management Assessment: Based on most recent visit, patient was progressing slower than expected toward functional goals based on appointment compliance and pt. Stating she can only complete a limited amount of visits due to $35 co-pay. Unable to formally assess goal achievement, as patient has not returned to therapy or scheduled additional follow-up appointments. Reason for Discontinuation of Care: Patient has not returned to therapy or scheduled additional follow-up appointments. Mary Ann Oscar PT Episode Visit Count: 2 Therapist That Will Accept/Oversee The Plan Of Care: Mary Ann Oscar Start of Care Date: 09/29/24 Onset Date: 03/29/24 Plan of Care Certification Date: 09/29/24 Next Certification Due Date: 11/10/24 REHABILITATION AND SPORTS THERAPY PHYSICAL THERAPY TREATMENT NOTE ASSESSMENT: Diony Ramirez tolerated the session with no issues. She demonstrated improvements in with low back and hip symptoms in the supine postion as well as completing lumbar flexion based exercises.. The patient will continue to benefit from ongoing skilled physical therapy to progress toward set goals. Current Frequency: 1x/week PLAN FOR NEXT VISIT: assess pt. self management of symptoms with repeated lumbar flexion and TA activation in seated position SUBJECTIVE: Pt. reports that she started doing the exercises as rx'd. Pt. does not notice any change. She stopped doing the exercises due to the pain in the hip. Pt. admits she pushes herself to walk in her basement due to fear that if she rests that she will be someone who lies around. Pt. had not been doing the RLE single KTC, just the LLE. Patient Goals: reduce back and hip pain Pain: Pain Pain Level: 8 Pain Location: Hip - Left Description: Aching Pain Location 2: Low Back/Lumbar Spine- Midline Description 2: Aching Post Treatment Pain Post Treatment Pain Level: Better Post Treatment Pain Location: Hip - Left Post Treatment Pain Score 2: (better) Post Treatment Pain Location 2: Low Back/Lumbar Spine - Left OBJECTIVE MEASURES WITH LEVEL OF FUNCTION: TREATMENT: Therapeutic Exercise: 1: scifit upright stepper seat 10, level 3, 1:1 throughout, subjective collected 2: seated lumbar flexion 4x10 3: laying supine 1 min - hip symptoms resolve, low back symptoms improve (pt. reports somewhat better) 4: laying supine S KTC stretch 3x30 sec each side (pt. reports somewhat better) 5: B KTC stretch 3x30 sec 6: seated TA activation 4x10 7: seated abdominal bracing BUE pressing down on the LEs 2x5, 10 sec hold Skilled Intervention: Patient was educated in proper exercise technique and purpose for exercises. Skilled judgment was used in selection of appropriate interventions. Provided written instruction for home exercise program to facilitate proper performance and compliance. Correct performance of therapeutic exercises was facilitated with verbal, visual, and tactile cuing. Educated patient on rationale for performing exercises in regards to decreasing fatigue , including balance, increase ease of ADL, and ROM and function . Patient education as noted. Self-Snf Management: 1: encouraged taking rest before pt. body no longer even allows her to push herself. 2: discussed goal to manage low back pain rather than do nothing while symptoms do not change 3: discussed goal of determining at direction of movement that the low back responds well to at this point 4: advised carrying a bed laborer purse, be sure to switch sides Skilled Intervention: Skilled judgment in the selection of proper modification for activity of daily living/home management based on clinical presentation, deficits, and needs. Educated the patient regarding recommendations and provided written instruction to facilitate compliance. Provided written instruction for activities of daily living techniques to facilitate proper performance and compliance. Reviewed patient specific diagnosis in relation to activities of daily living/home management. Activity progression based on professional judgement. Moderate verbal cues for maintaining neutral spine alignment. Provided written instruction for home program to facilitate proper performance and compliance. Correct performance of home program was facilitated with verbal, visual, and tactile cueing. Billing Therapeutic Exercise Treatment Minutes: 38 Self-Care/Home Management Treatment Minutes: 10 Skilled Treatme (more content not included)...[facility] 10-01-2024 Instructions* Patient Instructions* Rito Camp MD - 10/01/2024 10:44 AM EST We will try Celecoxib 200 mg a day for the hip pain. Cont with the PHYSICAL THERAPY. I will see youback in 2 months. We will try adding Quetiapine 25 mg before bed. If not much help in a few weeks let Dr. Camp knowand we can adjust. Otherwise will see you in 2 months. If sleeping better try stopping the Hydroxyzine fist and if still doing well cut back on the melatonin. Please get labs and urine test done on or after 09/02/2025 prior to your next visit. Screening schedule The following prevention plan is recommended: Depression Screening Never done BP Controlled (<130/80) due on 11/20/2023 Advance Directive Discussion due on 09/02/2024 WHAT YOU CAN DO TO PREVENT FALLS Many falls can be prevented. By making some changes, you can lower your chances of falling. Four things YOU can do to prevent falls for you* and your caregiver 1. Begin a regular exercise program Exercise is one of the most important ways to lower your chances of falling. It makes you stronger and helps you feel better. Exercises that improve balance and coordination (like Theo Chi) are the most helpful. Lack of exercise leads to weakness and increases your chances of falling. Ask your doctor or health care provider about the best type of exercise program for you. 2. Have your health care provider review your medicines Have your doctor or pharmacist review all the medicines you take, even [id number]-[id number] medicines. As you get older, the way medicines work in your body can change. Some medicines, or combinations of medicines, can make you sleepy or dizzy andcan cause you to fall. 3. Have your vision checked Have your eyes checked by an eye doctor at least once a year. You may be wearing the wrong glasses or have a condition like glaucoma or cataracts that limits your vision. Poor vision can increase your chances of falling. 4. Make your home safer About half of all falls happen at home. To make your home safer: Remove things you can trip over (like papers, books, clothes, and shoes) from stairs and places where you walk. Remove small throw rugs or use double-sided tape to keep the rugs from slipping. Keep items you use often in cabinets you can reach easily without using a step stool. Have grab bars put in next to your toilet and in the tub or shower. Use non-slip mats in the bathtub and on shower floors. Improve the lighting in your home. As you get older, you need brighter lights to see well. Hang light-weight curtains or shades to reduce glare. Have handrails and lights put in on all staircases. Wear shoes both inside and outside the house. Avoid going barefoot or wearing slippers. For more information, contact: Centers for Disease Control and Prevention www.cdc.gov/injury * This information may not apply if you have certain medical conditions. [facility] History of Present illness Narrative* Rito Camp MD - 10/01/2024 10:00 AM EST Images from the original note were not included. Diony Ramirez is a 69 year old female here for a Medicare wellness visit. Medicare Health Risk Assessment General Health Fair Exercise: Minutes/Day 20 min Exercise: Days/Week 3 days Alcohol: Daily Use 4 or more times a week Alcohol: Drinks/Day 5 or 6 Alcohol: 6 or more drinks Daily or almost daily Feel off balance No Concerns: Teeth/Dentures No Concerns: Sexual function No Troubled by feelings None of the above Frequency: Eating healthy diet Not at all ADLs requiring help None of the above Safety precautions in home/vehicle Yes Smoke, vape, chews tobacco No Difficulty hearing No Difficulty seeing Yes Current Providers Specialists: I have reviewed specialist-related care of the patient in the medical record. Current care team: Patient Care Team: Rito Camp MD as PCP - General (Family Medicine) Suleman Gustafson as Grain Merchandising Manager Alex Brown APRN.LUIS FELIPE as Outpatient Case Manager (Family Medicine) Shanita Green PA-C as Outpatient Case Manager (Family Medicine) Dr. Epstein: Pin management Dr. Shore: Urology and stopped going. Medical/Family history review Reviewed and updated problem list, medical/surgical/family/social history, medications, and allergies. Opioid use review Opioid Medications (last 90 days) No data to display Anxiety/Depression screening PHQ-9 Score: 4 (Minimal Depression) LJ-7 Score: 2 (Minimal Anxiety) Recommendation: continuing current treatment plan Cognitive screening Mini Cog Score: 5 Cognitive screening reviewed and No further action needed (score 3-5). Functional Observation Was the patient's Timed Up & Go test unsteady or >= 12 seconds? No Advance Care Planning Surrogate decision maker documented and/or advance directives scanned in chart Measurements BP 138/77 Pulse 83 Ht 142.2 cm (4' 8) Wt 41.5 kg (91 lb 6.4 oz) LMP 03/23/2007 BMI 20.49kg/m Vision Screening: Follows with optometry/ophthalmology Assessment/Plan Medicare annual wellness visit, subsequent (Z00.00) - Counseled on healthy diet and regular exercise - Fall avoidance information provided - Personalized prevention plan provided See Below Chief Complaint Patient presents with: Medicare Wellness Exam HPI Diony Ramirez is a 69 year old female who presents here today for Chronic Medical Conditions. and Medicare Annual Visit. Patient with Hx of Asthma/COPD seeing Dr. Gustafson, chronic anxiety, HTN, Manic disorder, arnold-chiari malformation, insomnia, heavy alcohol intake, herpes, ex-smoker, chronic neck and lumbar pain as well as those reviewed and addressed below and in ROS. Patient doing ok. Her left hip has been bothering her more and wonders if she can take something daily for this. Sh also still does not sleep well. Will fl asleep and then wakes up around 1:30 AM and can't get back to sleep. Past medical history, appointments, medications, allergies reviewed. Previous Medical History PAST MEDICAL HISTORY Diagnosis Date Abnormal toxicological findings 02/01/2021 Tox screen 01/27/2021 showed no benzos and pos for oxycodone which patient was not on. Patient informed of no further controlled med refills. 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 Chronic anxiety 06/17/2018 Degenerative arthritis of lumbar spine 05/06/2014 Ectatic thoracic aorta (HCC) 12/04/2022 CT done 12/2022 Elevated blood sugar 01/27/2021 Emphysema of lung (HCC) 03/18/2015 Essential hypertension, benign 02/21/2015 Ex-smoker 01/27/2021 Started around 89 and quit 2004. Smoked about 1.5 PPD GERD without esophagitis 09/12/2022 Herpes 01/27/2021 History of 2019 novel coronavirus disease (COVID-19) 01/27/202106/2020 History of small bowel obstruction HSV (herpes simplex virus) anogenital infection 02/08/2016 Living will on file at physician's office 09/27/2022 DPA: Reina Denise (aunt) Lung mass 09/07/2011 Lung nodules 05/30/[address] Suleman Gustafson Medicare annual wellness visit, subsequent 01/27/2021 Medicare Part B: NA Last done: Multiple thyroid nodules 01/27/[address] Vigil and f/u was stable. Told no need for further f/u. 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 Takes mid morning. Substance agreement signed and Tox screen done 12/2020. 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 COLONOSCOPY FLX DX W/COLLJ SPEC WHEN PFRMD 08/19/2006 Repeat in COLONOSCOPY FLX DX W/COLLJ SPEC WHEN PFRMD 06/27/2016 Colonoscopy CRANIOPLASTY SKULL DEF/REPAIR/ BRAIN 09/14/2014 See scanned documents - status post ESOPHAGOGASTRODUODENOSCOPY TRANSORAL DIAGNOSTIC 06/27/2016 EGD ESOPHAGOGASTRODUODENOSCOPY TRANSORAL DIAGNOSTIC 06/30/2018 EGD I&D ABSCESS CMPLX/MULT 07/2013 Epidural abscess- MSSA LIG/TRNSXJ FLP TUBE ABDL/VAG APPR UNI/BI Tubal ligation PAST SURGICAL HISTORY OF spinal surgery PAST SURGICAL HISTORY OF retinal detachment OD, (2 tears) PAST SURGICAL HISTORY OF 2012 back surgery STRESS TEST NUCLEAR 05/23/2021 negative Family History FAMILY HISTORY Problem Relation Age of Onset Hypertension Mother other (cerebral aneurysm) Mother Colon Polyps Father Hypertension Father COPD Father Cancer Father Bladder Cancer other (Past medical history) Father abdominal aneurysm/bladder cancer other (aortic aneurysm) Father Aneurysm Paternal Grandfather Patient Allergies ALLERGIES Allergen Reactions Fish Unknown Horse/Equine Contai* Unknown Lisinopril Cough Shellfish Derived Unknown Current Medications Current Outpatient Medications on File Prior to Visit Medication Sig traZODone (DESYREL) 150 mg tablet Take 1 tablet by mouth daily at bedtime. amLODIPine (NORVASC) 2.5 mg tablet Take 1 tablet by mouth once daily. Dextromethorphan-guaiFENesin (ROBITUSSIN COUGH-CHEST ESTEFANÍA DM) 5-100 mg/5 mL liqd Take 10 mL by mouth every 4 hours as needed. acyclovir (ZOVIRAX) 400 mg tablet Take 1 tablet by mouth two times a day. omeprazole (PRILOSEC) 40 mg capsule Take 1 capsule by mouth once daily. hydrOXYzine HCl (ATARAX) 10 mg tablet Take 1 tablet by mouth daily at bedtime. FOLIC ACID ORAL Take by mouth as directed. ZINC ORAL Take by mouth as directed. SYMBICORT 160-4.5 mcg/actuation inhaler BIOTIN ORAL Take 5,000 mcg by mouth. ascorbic acid/collagen hydr (COLLAGEN PLUS VITAMIN C ORAL) Take 1,000 mg by mouth twice daily. albuterol HFA (PROAIR HFA) 90 mcg/actuation inhaler Inhale 2 Puffs as instructed every 4 hours as needed for Wheezing/Shortness of Breath. Melatonin 5 mg cap 5 mg by mouth taken 2 hours prior to bedtime (Patient taking differently: 10 mg.5 mg by mouth taken 2 hours prior to bedtime) Ascorbic Acid (VITAMIN C) 1,000 mg TbER Take by mouth. Calcium Carb-Cholecalciferol (CALCIUM 600 WITH VITAMIN D3) 600-200 mg-unit ORAL Tab Take one(1) tablet two(2) times daily. No current facility-administered medications on file prior to visit. Social History Social History Tobacco Use Smoking status: Former Current packs/day: 0.00 Average packs/day: 1.5 packs/day for 15.0 years (22.5 ttl pk-yrs) Types: Cigarettes Start date: 07/31/1990 Quit date: 07/31/2005 Years since quittin.1 Smokeless tobacco: Never Vaping Use Vaping status: Never Used Substance Use Topics Alcohol use: Yes Alcohol/week: 10.0 - 15.0 standard drinks of alcohol Types: 10 - 15 Cans of Beer (12oz) per week Comment: 5-8 beers daily Drug use: No Review of Symptoms REVIEW OF SYSTEMS GENERAL: No weight loss, malaise or fevers HEENT: Negative for frequent or significant headaches, No changes in hearing or vision, no nose bleeds or other nasal problems NECK: Negative for lumps, goiter, pain and significant neck swelling RESPIRATORY: Negative for cough, hemoptysis, increased wheezing, COPD, dyspnea or shortness of breath CARDIOVASCULAR: Negative for chest pain, leg swelling, hypertension, CHF or palpitations GI: No nausea, vomiting, or diarrhea, No heartburn or reflux symptoms, and no blood. At times when swallowing her saliva she chokes and sometimes with eating or drinking. Has not had dysphagia in thepast 2-3 years. : No history of dysuria, or incontinence. Has over active bladder. Patient decided to stop seeingDr. Shore. She was to do a urinary diary and never did it so she never went back MUSCULOSKELETAL: having left hip pain. Recently started PHYSICAL THERAPY. SKIN: Negative for lesions, rash, and itching PSYCH: Negative for mood disorder and recent psychosocial stressors. See HPI HEMATOLOGY/LYMPHOLOGY: Negative for prolonged bleeding, bruising easily or swollen nodes ENDOCRINE: Negative for cold or heat intolerance, polyuria, polydipsia and goiter NEURO: No history of headaches, syncope, paralysis, seizures or tremors EXAM: BP 138/77 Pulse 83 Ht 142.2 cm (4' 8) Wt 41.5 kg (91 lb 6.4 oz) LMP 03/23/2007 BMI 20.49kg/m Last 5 Encounter Wt Readings: Date: Wt: 10/01/2024 41.5 kg (91 lb 6.4 oz) 08/03/2024 41.7 kg (92 lb) 07/31/2024 41.2 kg (90 lb 13.3 oz) 06/07/2024 39.5 kg (87 lb 1.3 oz) 06/05/2024 39.9 kg (88 lb) General Appearance: Well appearing, alert, in no acute distress, well-hydrated, well nourished.. Skin: Skin color, texture, turgor normal, no suspicious rashes or lesions. Head: Normocephalic, no masses, lesions, tenderness or abnormalities. Eyes: Anicteric sclera. Pupils are equally round and reactive to light. Extraocular movements are intact. . Ears: External ears, TM's normal, canals clear. Nose/Sinuses: Nares normal, septum midline, mucosa normal, no drainage or sinus tenderness. Oropharynx: Lips, mucosa, and tongue normal, teeth and gums normal, oropharynx normal. Neck: Supple, no adenopathy; thyroid symmetric, normal size, no bruits. Lungs: Lungs clear to auscultation. No wheezing, rhonchi, rales.. Heart: RRR without murmur, gallop, or rubs. No ectopy. Abdomen: Normal abdominal exam, Abdomen soft, non-tender. Bowel sounds normal. No masses, organomegaly. Extremities: No deformities, edema, skin discoloration, Good capillary refill. . Musculoskeletal: Muscular strength intact, No joint swelling, deformity. Has pain in the left hip with getting up from siting and on and off the table. Peripheral Pulses: Normal. Neurologic: Gait normal. Sensation to light touch and crainal nerves 2-12 intact.. Health Maintenance List Depression Screening Never done BP Controlled (<130/80) due on 11/20/2023 Advance Directive Discussion due on 09/02/2024 Bone Density Screening due on 11/13/2024 Mammogram Screening due on 07/01/2025 Annual PCP Team Chronic Disease Visit due on 08/03/2025 Colorectal Cancer Screening due on 06/27/2026 Diabetes Screening due on 09/24/2027 DTaP,Tdap,Td Vaccine(3 - Td or Tdap) due on 12/18/2028 Lipid Screening due on 09/24/2029 Influenza Vaccine Completed RSV Vaccine Completed Hepatitis C Screening Completed Shingrix Vaccine Completed Pneumococcal Vaccine: 50+ Completed Alpha-1 Antitrypsin Deficiency Screening Discontinued Spirometry Discontinued Cervical Cancer Screening Discontinued Covid-19 Vaccine Discontinued Data reviewed Latest Ref Rng 09/23/2023 09/24/2024 WBC 3.70 - 11.00 k/uL 6.77 6.55 RBC 3.90 - 5.20 m/uL 4.23 4.44 Hemoglobin 11.5 - 15.5 g/dL 14.3 14.7 Hematocrit 36.0 - 46.0 % 43.4 45.3 MCV 80.0 - 100.0 fL 102.6 (H) 102.0 (H) MCH 26.0 - 34.0 pg 33.8 33.1 MCHC 30.5 - 36.0 g/dL 32.9 32.5 RDW-CV 11.5 - 15.0 % 12.4 12.8 Platelet Count 150 - 400 k/uL 313 293 MPV 9.0 - 12.7 fL 9.4 9.6 Neut% % 59.6 61.5 Abs Neut (ANC) 1.45 - 7.50 k/uL 4.03 4.03 Lymph% % 26.0 24.1 Abs Lymph 1.00 - 4.00 k/uL 1.76 1.58 Barnes% % 10.0 9.5 Abs Barnes <0.87 k/uL 0.68 0.62 Eosin% % 3.4 3.2 Abs Eosin <0.46 k/uL 0.23 0.21 Baso% % 0.9 1.4 Abs Baso <0.11 k/uL 0.06 0.09 Immature Gran % % 0.1 0.3 IMMATURE GRANS (ABS) <0.10 k/uL <0.03 <0.03 NRBC /100 WBC 0.0 0.0 Absolute nRBC <0.01 k/uL <0.01 <0.01 DTYPE Auto Auto Color Yellow Yellow Yellow Clarity Clear Clear Clear Glucose, Urine Negative Negative Negative Bilirubin, Urine Negative Negative Negative Ketones, Urine Negative Negative Negative Specific [place], Ur 1.005 - 1.030 1.005 1.015 Hemoglobin/Blood,Ur Negative Negative Negative pH, Urine <8.5 7.0 8.5 (H) Protein, Urine Negative Negative Trace ! Urobilinogen 0.2-1.0 EU/dL 0.2 EU/dL 0.2 EU/dL Nitrites Negative Negative Negative Leukest Negative Negative Negative WBC, Urine 0-5 /HPF 0-5 /HPF 0-5 /HPF RBC, Urine 0-2 /HPF 0-2 /HPF 0-2 /HPF Bacteria Negative /HPF Negative Negative Epithelial Cells /HPF None Seen None Seen Hyaline Cast 0 /LPF 1-3 /LPF ! 0 /LPF Protein, Total 6.3 - 8.0 g/dL 7.1 6.5 Albumin 3.9 - 4.9 g/dL 4.3 4.1 Calcium 8.5 - 10.2 mg/dL 9.0 8.8 Bilirubin, Total 0.2 - 1.3 mg/dL 0.4 0.5 Alkaline Phosphatase 34 - 123 U/L 64 66 AST 13 - 35 U/L 30 23 ALT 7 - 38 U/L 21 15 Glucose 74 - 99 mg/dL 111 (H) 90 BUN 7 - 21 mg/dL 14 14 Creatinine 0.58 - 0.96 mg/dL 0.65 0.67 Sodium 136 - 144 mmol/L 135 (L) 137 Potassium 3.7 - 5.1 mmol/L 4.1 4.1 Chloride 98 - 107 mmol/L 100 101 CO2 22 - 30 mmol/L 27 26 Anion Gap 8 - 15 mmol/L 8 (L) 10 eGFR >=60 mL/min/1.73m 97 95 Total Cholesterol, Nonfasting <200 mg/dL 192 193 Triglycerides, Nonfasting <150 mg/dL 102 76 HDL Cholesterol, Nonfasting >39 mg/dL 81 99 LDL Cholesterol, Nonfasting <100 mg/dL 91 79 Non HDL Cholesterol, Nonfasting <130 mg/dL 111 94 VLDL Cholesterol, Nonfasting <30 mg/dL 20 15 Total Chol/HDL Ratio, Nonfasting <5.10 mg/dL 2.37 1.95 LDL/HDL Ratio, Nonfasting <2.54 mg/dL 1.12 0.80 Iron 41 - 186 ug/dL 96 TIBC 232 - 386 ug/dL 391 (H) Transferrin Saturation 15.0 - 57.0 % 24.6 Hemoglobin A1C 4.3 - 5.6 % 5.1 4.9 Estimated Average Glucose mg/dL 100 94 Vitamin B12 232 - 1,245 pg/mL 1,549 (H) 1,367 (H) TSH 0.270 - 4.200 mIU/L 1.020 1.160 Magnesium 1.7 - 2.3 mg/dL 2.1 2.2 Vitamin D 25 Hydroxy 31.0 - 80.0 ng/mL 57.6 A/P ASSESSMENT/PLAN: 1. Medicare annual wellness visit, subsequent - ICD9: V70.0, ICD10: Z00.00 (primary diagnosis) - Counseled on healthy diet and regular exercise - Follow up for annual exam in one year 2. Essential hypertension, benign - ICD9: 401.1, ICD10: I10 - Controlled - Continue current medications - Recommend home blood pressure monitoring, to bring results to next visit - Encouraged sodium restriction, DASH or Mediterranean diet - Recommend regular aerobic exercise 3. Elevated blood sugar - ICD9: 790.29, ICD10: R73.9 - A1c with good control. 4. Asthma with COPD with exacerbation (HCC) - ICD9: 493.22, ICD10: J44.1 - on meds and follows with Pulm for management 5. Pulmonary emphysema, unspecified emphysema type (HCC) - ICD9: 492.8, ICD10: J43.9 - as per #4 6. Ectatic thoracic aorta (HCC) - ICD9: 447.71, ICD10: I77.810 - will await chest CT result to see if any seen since echo done in 2023 was normal. 7. GERD without esophagitis - ICD9: 530.81, ICD10: K21.9 - Continue treatment with Prilosec 40 mg QD 8. Psychophysiological insomnia - ICD9: 307.42, ICD10: F51.04 - will trial Seroquel 25 mg QHS. Patient to let me know in a week if not helping and will adjust dose. If doing better she was encouraged to see if she can stop the hydroxyzine and then the melatonin. 9. Chronic anxiety - ICD9: 300.00, ICD10: F41.9 - as per #8 10. Manic disorder, recurrent episode, moderate (HCC) - ICD9: 296.12, ICD10: F31.89 - as per #8 11. Arnold-Chiari malformation (HCC) - ICD9: 741.00, ICD10: Q07.00 - no clinical issues. Will monitor. 12. Heavy alcohol use - ICD9: V49.89, ICD10: F10.90 - again discussed considering cutting back. 13. Chronic bilateral low back pain with sciatica, sciatica laterality unspecified - ICD9: 724.2, 724.3, 338.29, ICD10: M54.40, G89.29 - sees Dr. Lucian white. 14. Pain in left hip - ICD9: 719.45, ICD10: M25.552 - will trial Celebrex 200 mg a day. If not helping along with PHYSICAL THERAPY my need to see ortho. 15. Overactive bladder - ICD9: 596.51, ICD10: N32.81 - stable. If has future issues will need to re-see Urology. 16. Osteoporosis, unspecified osteoporosis type, unspecified pathological fracture presence - ICD9:733.00, ICD10: M81.0 - Reviewed the need for Calcium and Vitamin D supplements and weight bearing exercise as tolerated - check DXA. 17. Herpes - ICD9: 054.9, ICD10: B00.9 - cont acyclovir for control 18. Choking in adult - ICD9: 784.99, ICD10: R09.89 - will get a swallowing test with PHYSICAL THERAPY at [facility] 19. Advance directive discussed with patient - ICD9: V65.49, ICD10: Z71.89 - up to date 20. Screening for depression - ICD9: V79.0, ICD10: Z13.31 - DEPRESSION SCREENING Requested Prescriptions Signed Prescriptions Disp Refills Melatonin 5 mg cap Sig: Take 2 capsules by mouth daily at bedtime. QUEtiapine (SEROQUEL) 25 mg tablet 30 tablet 1 Sig: Take 1 tablet by mouth daily at bedtime. celecoxib (CELEBREX) 200 mg capsule 30 capsule 1 Sig: Take 1 capsule by mouth once daily. F/u in 2 months for insomnia and left hip pain. F/u in year extensive. I spent a total of 40 minutes on the date of the service which included preparing to see the patient, [id number] patient care, completing clinical documentation, performing a medically appropriate examination, counseling and educating the patient/family/caregiver and ordering medications, tests, or procedures. Rito Camp MD documented in this encounterSoph[place] [address]-30-2025 NoteHNO ID: [id number] Author: RITO CAMP MD Service: ? Author Type: Physician Type: Progress Notes Filed: 10/01/2024 20:22 Note Text: Diony Ramirez is a 69 year old female here for a Medicare wellness visit. Medicare Health Risk Assessment General Health Fair Exercise: Minutes/Day 20 min Exercise: Days/Week 3 days Alcohol: Daily Use 4 or more times a week Alcohol: Drinks/Day 5 or 6 Alcohol: 6 or more drinks Daily or almost daily Feel off balance No Concerns: Teeth/Dentures No Concerns: Sexual function No Troubled by feelings None of the above Frequency: Eating healthy diet Not at all ADLs requiring help None of the above Safety precautions in home/vehicle Yes Smoke, vape, chews tobacco No Difficulty hearing No Difficulty seeing Yes Current Providers Specialists: I have reviewed specialist-related care of the patient in the medical record. Current care team: Patient Care Team: Rito Camp MD as PCP - General (Family Medicine) Suleman Gustafson as Grain Merchandising Manager Alex Brown APRN.CNP as Outpatient Case Manager (Family Medicine) Shanita Green PA-C as Outpatient Case Manager (Family Medicine) Dr. Epstein: Pin management Dr. Shore: Urology and stopped going. Medical/Family history review Reviewed and updated problem list, medical/surgical/family/social history, medications, and allergies. Opioid use review Opioid Medications (last 90 days) No data to display Anxiety/Depression screening PHQ-9 Score: 4 (Minimal Depression) LJ-7 Score: 2 (Minimal Anxiety) Recommendation: continuing current treatment plan Cognitive screening Mini Cog Score: 5 Cognitive screening reviewed and No further action needed (score 3-5). Functional Observation Was the patient's Timed Up AND Go test unsteady or >= 12 seconds? No Advance Care Planning Surrogate decision maker documented and/or advance directives scanned in chart Measurements BP 138/77 Pulse 83 Ht 142.2 cm (4' 8) Wt 41.5 kg (91 lb 6.4 oz) LMP 03/23/2007 BMI 20.49 kg/m? Vision Screening: Follows with optometry/ophthalmology Assessment/Plan Medicare annual wellness visit, subsequent (Z00.00) - Counseled on healthy diet and regular exercise - Fall avoidance information provided - Personalized prevention plan provided See Below Chief Complaint Patient presents with: Medicare Wellness Exam HPI Diony Ramirez is a 69 year old female who presents here today for Chronic Medical Conditions. and Medicare Annual Visit. Patient with Hx of Asthma/COPD seeing Dr. Gustafson, chronic anxiety, HTN, Manic disorder, arnold-chiari malformation, insomnia, heavy alcohol intake, herpes, ex-smoker, chronic neck and lumbar pain as well as those reviewed and addressed below and in ROS. Patient doing ok. Her left hip has been bothering her more and wonders if she can take something daily for this. Sh also still does not sleep well. Will fl asleep and then wakes up around 1:30 AM and can't get back to sleep. Past medical history, appointments, medications, allergies reviewed. Previous Medical History PAST MEDICAL HISTORY Diagnosis Date Abnormal toxicological findings 02/01/2021 Tox screen 01/27/2021 showed no benzos and pos for oxycodone which patient was not on. Patient informed of no further controlled med refills. 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 Chronic anxiety 06/17/2018 Degenerative arthritis of lumbar spine 05/06/2014 Ectatic thoracic aorta (HCC) 12/04/2022 CT done 12/2022 Elevated blood sugar 01/27/2021 Emphysema of lung (HCC) 03/18/2015 Essential hypertension, benign 02/21/2015 Ex-smoker 01/27/2021 Started around 89 and quit 2005. Smoked about 1.5 PPD GERD without esophagitis 09/12/2022 Herpes 01/27/2021 History of 2019 novel coronavirus disease (COVID-19) 01/27/202106/2020 History of small bowel obstruction HSV (herpes simplex virus) anogenital infection 02/08/2016 Living will on file at physician's office 09/27/2022 DPA: Reina Denise (aunt) Lung mass 09/07/2011 Lung nodules 05/30/[address] Suleman Gustafson Medicare annual wellness visit, subsequent 01/27/2021 Medicare Part B: NA Last done: Multiple thyroid nodules 01/27/[address] Vigil and f/u was stable. Told no need for further f/u. 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 Takes mid morning. Substance agreement signed and Tox screen done 12/2020. tox screen abnormal and patient informed of no future controlled med scripts Retinal detachment in [facility] (more content not included)...[facility]01-29-2025 Telephone encounter Note* Telephone Encounter - Angella Stevens - 09/30/2024 3:38 PM EST Prescription Refill Information The patient has been identified by name and date of : Yes Caregiver verified no other encounters exist for this prescription request: Yes Caregiver confirmed with patient/requestor that no other refills are due, in the near future, with this provider at this time: Yes The last office visit in the department: 08-03-24 Does the patient have a future office visit with this provider/department: Yes Requested Prescriptions Pending Prescriptions Disp Refills traZODone (DESYREL) 150 mg tablet 90 tablet 1 Sig: Take 1 tablet by mouth daily at bedtime. amLODIPine (NORVASC) 2.5 mg tablet 90 tablet 3 Sig: Take 1 tablet by mouth once daily. Angella Kirkland September 30, 2024 3:39 PM [facility]01-29-2025 Miscellaneous Notes* Telephone Encounter - Angella Stevens - 09/30/2024 3:38 PM EST Prescription Refill Information The patient has been identified by name and date of : Yes Caregiver verified no other encounters exist for this prescription request: Yes Caregiver confirmed with patient/requestor that no other refills are due, in the near future, with this provider at this time: Yes The last office visit in the department: 08-03-24 Does the patient have a future office visit with this provider/department: Yes Requested Prescriptions Pending Prescriptions Disp Refills traZODone (DESYREL) 150 mg tablet 90 tablet 1 Sig: Take 1 tablet by mouth daily at bedtime. amLODIPine (NORVASC) 2.5 mg tablet 90 tablet 3 Sig: Take 1 tablet by mouth once daily. Angella Kirkland September 30, 2024 3:39 PM documented in this encounterParkwood [facility]01-28[facility] History of Present illness Narrative* Mary Ann Oscar, PT - 09/29/2024 12:26 PM EST Program_ID:[id number] Access Code: [email or web address] URL: [email or web address] Date: 09-29-2024 Prepared By: Mary Ann Oscar Program Notes Exercises - Supine Double Knee to Chest - 2-3 x daily - 7 x weekly - 1 sets - 3 reps - Supine Single Knee to Chest Stretch - 2-3 x daily - 7 x weekly - 1 sets - 3 reps - Supine Transversus Abdominis Bracing - Hands on Stomach - 2-3 x daily - 7 x weekly - 4 sets - 10 reps - Supine Transversus Abdominis Bracing - Hands on Ground - 2-3 x daily - 7 x weekly - 2 sets - 5 reps * Mary Ann Oscar, PT - 09/29/2024 11:57 AM EST Images from the original note were not included. Episode Visit Count: 1 Therapist That Will Accept/Oversee The Plan Of Care: Mary Ann Oscar Start of Care Date: 09/29/24 Onset Date: 03/29/24 Plan of Care Certification Date: 09/29/24 Next Certification Due Date: 11/10/24 Patient Identified by Name and Date of : Yes REHABILITATION AND SPORTS THERAPY PHYSICAL THERAPY EVALUATION PLAN OF CARE: Assessment: Diony Ramirez presents with diagnosis of pain in the left hip that interferes withsitting . The patient presents with impairments in ADL's, gait, independence in exercise, joint mobility, overall function, patient reported outcome measures, posture, range of motion, strength, symptom management, and tissue tenderness. PROMIS (Patient-Reported Outcomes Measurement Information System) scores were reviewed and identified as a rehabilitation concern. Prognosis for therapy is Fair due to: chronic nature of impairments, poor understanding of deficits, limited compliance with previous therapy . The patient will benefit from skilled therapy services to meet the goals established for this plan of care as noted below. Classification Pain Mechanism Classification: Nociplastic/Central Low Back Pain Classification: Symptom Modulation Goals for Episode of Care: established 09/29/24 Independent in home exercises. Patient will decrease pain rating by 2 points to meet minimal clinical important difference for numeric pain rating scale. Restore pain-free lumbar ROM to minimal to no limitation grossly without increased pain to allow for ADLs. Stand / Walk 1-2 hours without increased pain/symptoms. Sleep through night without pain/symptoms. Patient will be able to tolerate functional activities for 300-40 minutes without increased symptoms. Patient Goals: reduce back and hip pain Time Frame for Goals and Treatment : 11/10/24 Planned Interventions, Frequency, and Duration: Current Frequency: 1x/week Duration: 6 weeks Total Number of Visits Planned: 6 Planned Treatment Interventions: Therapeutic exercise (08621), Neuromuscular re- education (18943), Manual therapy (36941), Therapeutic activities (16976), Self- longterm management (30764), Gait Training (91554) PLAN FOR NEXT VISIT: Pt. has $35 co-pay and states that she can only do a limited amount of visits. Patient demonstrates good understanding of plan of care and treatment. The above goals and plan of care were discussed and agreed upon by patient/family. SUBJECTIVE: for L hip pain that onset about 6-7 mo. ago without a specific injury. Pt. has tried heat but this does not help. Pain does not change regardless of activity. Pt. does not get relief with seated restand admits to being someone who is not able to sit for prolonged periods. Pt. has not been able to sleep since losing her about 9 years ago. Patient Goals: reduce back and hip pain Functional Limitations: sitting Prior Level of Function: Independent without limitations Relevant History Past Relevant Medical Conditions: Asthma, COPD Employment: Retired Intake Information: Prescription present Previous Treatment: (ibuprofen and heat does not help. Strong pain medication has not helped in a long time- pt. admits to building up a tolerance to this type of medication) Falls Interview: Fall without injury in the last year Red Flags Vertebral Fracture Red Flags: Female Abdominal Aortic Aneurysm Red Flags: Age >60 Abdominal Aortic Aneurysm Clinical Reasoning: Proceed with caution Cancer Red Flags: Age >50 or <20 Cancer Clinical Reasoning: No identified risk factors. Infection Clinical Reasoning: No identified risk factors. Cauda Equina Syndrome Clinical Reasoning: No identified risk factors. Red Flags - Cervical Cancer Red Flags: Age >50 or <20 Cancer Clinical Reasoning: No identified risk factors. Infection Clinical Reasoning: No identified risk factors. Spine History Symptoms Since Onset: Unchanging Pain is Worse Always: Sitting, Prolonged positions (lifting) Pain is Better Always: No position Pain: Pain Pain Level: 7 Pain Location: Hip - Left Description: Aching, Stabbing Additional Pain Information : Location 2 Pain Level 2: 7 Pain Location 2: Low Back/Lumbar Spine- Midline Description 2: Aching, Stabbing Post Treatment Pain Post Treatment Pain Level: No Change Post Treatment Pain Location: Hip - Left Post Treatment Pain Score 2: No Change Post Treatment Pain Location 2: Low Back/Lumbar Spine - Left PROMIS Scales 09/22/2024 09/16/2024 05/26/2024 Higher is Better Phys Func - T Score 43 (mild dysfunction) Phys Func - Percentile 24 Self-Eff Symptom - T Score 48 (Average) 44 (Average) Self-Eff Symptom - Percentile 42 27 07/15/2023 Lower is Better Pain Interference - T Score 53 (within normal limits) Pain Interference - Percentile 38 T-scores: mean of general population = 50. 5 points is clinically meaningfully difference Percentiles provide an indication of how the patient's score ranks in relation to the general population. Higher percentile rankings indicate better function/quality of life. 50th percentile is the average of the general population and indicates half of respondents had a worse score. OBJECTIVE MEASURES WITH LEVEL OF FUNCTION: Hip Observations L Hip Palpation Tenderness: Iliacus Sensation - Lower Extremity LE Light Touch Sensation: Grossly Intact Spine Observations L Lumbar Spine Palpation Tenderness: Iliacus, Quadratus Lumborum Sensation - Lumbar Sensation: Grossly Intact (B LE neuropathy hx per pt. report) Lumbar Spine AROM Lumbar Flexion: Normal Lumbar Extension: Moderate limitation Lumbar R Side Marblemount: Minimal limitation Lumbar L Side Marblemount: Minimal limitation Lumbar R Side-Bend: Normal Lumbar L Side-Bend: Normal Lumbar R Rotation: Normal Lumbar L Rotation: Normal LE Flexibility Flexibility: Quadratus Lumborum L Quadratus Lumborum: limited Special Tests - Hip and Spine Hip and Spine Special Tests: FADDIR Test, PRASANNA Test PRASANNA Test: Right Negative, Left Negative FADDIR Test: Right Negative, Left Negative Gait Gait: Independent Gait Distance (feet): 50 Gait Device: None Gait Deviations: General Deviations General Deviations/Observations: Step length decreased, Flexed trunk posture Education: Education Learning Preferences: Demonstration, Explanation, Performance, Printed Materials Barriers: Emotions Learning/educational needs: Home exercise program, Plan of Care Education Provided: Yes, see treatment interventions for education provided Education Provided To: Patient Education Mode/Type: Demonstration, Explanation/Discussion, Literature/Printed Materials, Performance Response to Education/Teach Back: States/Identifies, Return Demonstration TREATMENT: PT Treatment Interventions: Therapeutic Exercise, Self-Snf Management Evaluation Therapeutic Exercise: 1: *Access Code: [email or web address] URL: [email or web address] Date: 09/29/2024 Prepared by: Mary Ann Hernandez Exercises - Supine Double Knee to Chest - 2-3 x daily - 7 x weekly - 1 sets - 3 reps - 30 hold - Supine Single Knee to Chest Stretch - 2-3 x daily - 7 x weekly - 1 sets - 3 reps - 30 hold - Supine Transversus Abdominis Bracing - Hands on Stomach - 2-3 x daily - 7 x weekly - 4 sets- 10 reps - Supine Transversus Abdominis Bracing - Hands on Ground - 2-3 x daily - 7 x weekly - 2 sets - 5 reps - 10 hold Skilled Intervention: Patient was educated in proper exercise technique and purpose for exercises. Skilled judgment was used in selection of appropriate interventions. Provided written instruction for home exercise program to facilitate proper performance and compliance. Correct performance of therapeutic exercises was facilitated with verbal, visual, and tactile cuing. Educated patient on rationale for performing exercises in regards to decreasing fatigue , increase ease of ADL, and ROM and function . Patient education as noted. Self-Snf Management: 1: discussed lumbar flexion directional preference 2: discussed clinical reasoning for avoiding cruches or sit ups for core strengthening and replacing with TA activation 3: discussed rest could reduce symptoms, constant being on her feet does not allow her body to recover Skilled Intervention: Skilled judgment in the selection of proper modification for activity of daily living/home management based on clinical presentation, deficits, and needs. Provided written instruction for activities of daily living techniques to facilitate proper performance and compliance. Reviewed patient specific diagnosis in relation to activities of daily living/home management. Activity progression based on professional judgement. Moderate verbal cues for maintaining neutral spine alignment. Provided written instruction for home program to facilitate proper performance and compliance. Correct performance of home program was facilitated with verbal, visual, and tactile cueing. Billing * Evaluation Low Complexity: 1 Unit Therapeutic Exercise Treatment Minutes: 10 Self-Care/Home Management Treatment Minutes: 15 Skilled Treatment Time Minutes (timed and untimed codes): 45 Total Session Time (minutes): 45 Session Start Time : 1155 Session Stop Time : 1240 Mary Ann Oscar PT documented in this encounterParkwood Hospital01-28-[facility]25 NoteHNO ID: [id number] Author: MARY ANN OSCAR PT Service: ? Author Type: Physical Therapist Type: Progress Notes Filed: 09/29/2024 12:43 Note Text: Episode Visit Count: 1 Therapist That Will Accept/Oversee The Plan Of Care: Mary Ann Oscar Start of Care Date: 09/29/24 Onset Date: 03/29/24 Plan of Care Certification Date: 09/29/24 Next Certification Due Date: 11/10/24 Patient Identified by Name and Date of : Yes REHABILITATION AND SPORTS THERAPY PHYSICAL THERAPY EVALUATION PLAN OF CARE: Assessment: Diony Ramirez presents with diagnosis of pain in the left hip that interferes with sitting . The patient presents with impairments in ADL's, gait, independence in exercise, joint mobility, overall function, patient reported outcome measures, posture, range of motion, strength, symptom management, and tissue tenderness. PROMIS? (Patient-Reported Outcomes Measurement Information System) scores were reviewed and identified as a rehabilitation concern. Prognosis for therapy is Fair due to: chronic nature of impairments, poor understanding of deficits, limited compliance with previous therapy . The patient will benefit from skilled therapy services to meet the goals established for this plan of care as noted below. Classification Pain Mechanism Classification: Nociplastic/Central Low Back Pain Classification: Symptom Modulation Goals for Episode of Care: established 09/29/24 Independent in home exercises. Patient will decrease pain rating by 2 points to meet minimal clinical important difference for numeric pain rating scale. Restore pain-free lumbar ROM to minimal to no limitation grossly without increased pain to allow for ADLs. Stand / Walk 1-2 hours without increased pain/symptoms. Sleep through night without pain/symptoms. Patient will be able to tolerate functional activities for 300-40 minutes without increased symptoms. Patient Goals: reduce back and hip pain Time Frame for Goals and Treatment : 11/10/24 Planned Interventions, Frequency, and Duration: Current Frequency: 1x/week Duration: 6 weeks Total Number of Visits Planned: 6 Planned Treatment Interventions: Therapeutic exercise (05756), Neuromuscular re-education (85118), Manual therapy (78521), Therapeutic activities (80467), Self-longterm management (62802), Gait Training (42811) PLAN FOR NEXT VISIT: Pt. has $35 co-pay and states that she can only do a limited amount of visits. Patient demonstrates good understanding of plan of care and treatment. The above goals and plan of care were discussed and agreed upon by patient/family. SUBJECTIVE: for L hip pain that onset about 6-7 mo. ago without a specific injury. Pt. has tried heat but this does not help. Pain does not change regardless of activity. Pt. does not get relief with seated rest and admits to being someone who is not able to sit for prolonged periods. Pt. has not been able to sleep since losing her about 9 years ago. Patient Goals: reduce back and hip pain Functional Limitations: sitting Prior Level of Function: Independent without limitations Relevant History Past Relevant Medical Conditions: Asthma, COPD Employment: Retired Intake Information: Prescription present Previous Treatment: (ibuprofen and heat does not help. Strong pain medication has not helped in a long time- pt. admits to building up a tolerance to this type of medication) Falls Interview: Fall without injury in the last year Red Flags Vertebral Fracture Red Flags: Female Abdominal Aortic Aneurysm Red Flags: Age >60 Abdominal Aortic Aneurysm Clinical Reasoning: Proceed with caution Cancer Red Flags: Age >50 or <20 Cancer Clinical Reasoning: No identified risk factors. Infection Clinical Reasoning: No identified risk factors. Cauda Equina Syndrome Clinical Reasoning: No identified risk factors. Red Flags - Cervical Cancer Red Flags: Age >50 or <20 Cancer Clinical Reasoning: No identified risk factors. Infection Clinical Reasoning: No identified risk factors. Spine History Symptoms Since Onset: Unchanging Pain is Worse Always: Sitting, Prolonged positions (lifting) Pain is Better Always: No position Pain: Pain Pain Level: 7 Pain Location: Hip - Left Description: Aching, Stabbing Additional Pain Information : Location 2 Pain Level 2: 7 Pain Location 2: Low Back/Lumbar Spine- Midline Description 2: Aching, Stabbing Post Treatment Pain Post Treatment Pain Level: No Change Post Treatment Pain Location: Hip - Left Post Treatment Pain Score 2: No Change Post Treatment Pain Location 2: Low Back/Lumbar Spine - Left PROMIS Scales 09/22/2024 09/16/2024 05/26/2024 Higher is Better Phys Func - T Score 43 (mild dysfunction) Phys Func - Percentile 24 Self-Eff Symptom - T Score 48 (Average) 44 (Average) Self-Eff Symptom - Percentile 42 27 07/15/2023 Lower is Better Pain Interference - T Score 53 (within normal limits) [place] (more content not included)...[facility]01-14-2025 Telephone encounter Note* Telephone Encounter - Kasey Becker LPN - 09/15/2024 1:00 PM EST Patient calling she had appt today in Pulmonary office with Letha Emery VOLTAGE TESTER at Dr Suleman Gustafson office. Asking for a copy of the CR Chest report faxed to [phone]. Printed report from 12/2022 and faxed as requested. [facility]01-14-2025 Miscellaneous Notes* Telephone Encounter - Kasey Becker LPN - 09/15/2024 1:00 PM EST Patient calling she had appt today in Pulmonary office with Letha Emery NP at Dr Suleman Gustafson office. Asking for a copy of the CR Chest report faxed to [phone]. Printed report from 12/2022 and faxed as requested. documented in this encounterParkwood Hospital01-14-2025 Evaluation note* Diagnosis Onset Date Resolution Status Admit Date Asthma-COPD overlap syndrome chronic September 15, 2024 10:58am Nicotine dependence, cigarettes, in remission chronic September 15, 2024 10:58am [facility] Work Phone: 1(807) 262-560501-14-2025 Evaluation note* Diagnosis Onset Date Resolution Status Admit Date Asthma-COPD overlap syndrome chronic September 15, 2024 10:58am Nicotine dependence, cigarettes, in remission chronic September 15, 2024 10:58am Dysphagia acute December 17 10:25am Encounter for screening colonoscopy acute December 17, 2024 10:25am Family history of colon canc er in father acute December 17, 2024 10:25am [facility] Work Phone: 1(819) 118-958901-07-2025 Telephone encounter Note* Telephone Encounter - Kasey Becker LPN - 09/08/2024 12:52 PM EST Phoned patient aware fasting lab work orders in computer for her to complete. [facility]01-07-2025 Miscellaneous Notes* Telephone Encounter - Kasey Becker LPN - 09/08/2024 12:52 PM EST Phoned patient aware fasting lab work orders in computer for her to complete. * Telephone Encounter - Shanita Green PA-C - 09/08/2024 12:33 PM EST Labs placed * Telephone Encounter - Elizabeth Eckert LPN - 09/08/2024 11:30 AM EST Pt calls to report that she has an appt 10/01/24 - Wellness visit. Pt would like to get labs done before appt. Pt wants same labs that were done Sep 2023. Pt wants to make sure iron and Vit D are checked also. Please review. Call pt when lab orders have been placed. Elizabeth Eckert LPN documented in this encounterParkwood Hospital01-07-2025 Telephone encounter Note * Telephone Encounter - Shanita Green PA-C - 09/08/2024 12:33 PM EST Labs placed [facility]01-[facility]-20[facility] Telephone encounter Note* Telephone Encounter - Elizabeth Eckert LPN - 09/08/2024 11:30 AM EST Pt calls to report that she has an appt 10/01/24 - Wellness visit. Pt would like to get labs done before appt. Pt wants same labs that were done Sep 2023. Pt wants to make sure iron and Vit D are checked also. Please review. Call pt when lab orders have been placed. Elizabeth Eckert LPN [facility]12-12-2024 NoteHNO ID: [id number] Author: CHRISTINE PARKER RN Service: ? Author Type: Registered Nurse Type: Progress Notes Filed: 08/13/2024 11:21 Note Text: CDM Telephonic Outreach Provider Action/FYI Contacted for: Routine Telephonic Outreach Contact made with patient: Yes Patient identified by name and date of . Discussed care with patient Are you experiencing any new or worsening symptoms you need to talk about today? No Disease Specific Do you check your blood pressure at home? No Do you have new or worsening shortness of breath with activity? No Do you have new or worsening cough? No Do you have new or worsening wheezing? No Do you need to use your rescue (Albuterol) inhaler or nebulizer more often than normal? No Based on communications clerk, the following disposition is advised: No symptoms or symptoms present, not severe. Routed to: No Action Needed PALOMA Education Provided this Outreach: No Pt reports she is doing ok and she is not having any new or worsening cdm concerns at this time. She reports she just got over having pneumonia but is feeling better now. She will contact the office with any needs. Christine Parker RN August 13, 2024 11:20 [facility]12-12-2024 History of Present illness Narrative* Christine Parker RN - 08/13/2024 11:07 AM EST CDM Telephonic Outreach Provider Action/FYI Contacted for: Routine Telephonic Outreach Contact made with patient: Yes Patient identified by name and date of . Discussed care with patient Are you experiencing any new or worsening symptoms you need to talk about today? No Disease Specific Do you check your blood pressure at home? No Do you have new or worsening shortness of breath with activity? No Do you have new or worsening cough? No Do you have new or worsening wheezing? No Do you need to use your rescue (Albuterol) inhaler or nebulizer more often than normal? No Based on communications clerk, the following disposition is advised: No symptoms or symptoms present, not severe. Routed to: No Action Needed PALOMA Education Provided this Outreach: No Pt reports she is doing ok and she is not having any new or worsening cdm concerns at this time. She reports she just got over having pneumonia but is feeling better now. She will contact the office with any needs. Christine Parker RN August 13, 2024 11:20 AM documented [facility] NotePatient Outreach ([facility]) DIONY RAMIREZ ([id number]) 1955 F Date Time Provider Department 08/13/24 PARKER, CHRISTINE [facility] During your visit today, we recorded the following information about you: Christine Parker RN 08/13/2024 11:21 AM Signed CDM Telephonic Outreach Provider Action/FYI Contacted for: Routine Telephonic Outreach Contact made with patient: Yes Patient identified by name and date of . Discussed care with patient Are you experiencing any new or worsening symptoms you need to talk about today? No Disease Specific Do you check your blood pressure at home? No Do you have new or worsening shortness of breath with activity? No Do you have new or worsening cough? No Do you have new or worsening wheezing? No Do you need to use your rescue (Albuterol) inhaler or nebulizer more often than normal? No Based on communications clerk, the following disposition is advised: No symptoms or symptoms present, not severe. Routed to: No Action Needed PALOMA Education Provided this Outreach: No Pt reports she is doing ok and she is not having any new or worsening cdm concerns at this time. She reports she just got over having pneumonia but is feeling better now. She will contact the office with any needs. Christine Parker RN August 13, 2024 11:20 AM Allergies As of Date: 08/13/2024 Noted Allergy Reaction FISH 06/23/2005 16 - Unknown HORSE/EQUINE CONTAINING PRODUCTS 08/30/2023 16 - Unknown LISINOPRIL 12/07/2015 3 - Cough SHELLFISH DERIVED 08/30/2023 16 - Unknown Date Reviewed: 08/03/2024 Reviewed by: Mila Kidd MA - Fully Assessed Reason for Visit: CDM [Other] Cmt: Telephonic Outreach Prescriptions as of 08/31/2024 - Dextromethorphan-guaiFENesin (ROBITUSSIN COUGH-CHEST ESTEFANÍA DM) 5-100 mg/5 mL liqd Take 10 mL by mouth every 4 hours as needed. - acyclovir (ZOVIRAX) 400 mg tablet Take 1 tablet by mouth two times a day. - omeprazole (PRILOSEC) 40 mg capsule Take 1 capsule by mouth once daily. - traZODone (DESYREL) 150 mg tablet Take 1 tablet by mouth daily at bedtime. - amLODIPine (NORVASC) 2.5 mg tablet Take 1 tablet by mouth once daily. - hydrOXYzine HCl (ATARAX) 10 mg tablet Take 1 tablet by mouth daily at bedtime. - FOLIC ACID ORAL Take by mouth as directed. - ZINC ORAL Take by mouth as directed. - SYMBICORT 160-4.5 mcg/actuation inhaler - BIOTIN ORAL Take 5,000 mcg by mouth. - ascorbic acid/collagen hydr (COLLAGEN PLUS VITAMIN C ORAL) Take 1,000 mg by mouth twice daily. - albuterol HFA (PROAIR HFA) 90 mcg/actuation inhaler Inhale 2 Puffs as instructed every 4 hours as needed for Wheezing/Shortness of Breath. - Melatonin 5 mg cap 5 mg by mouth taken 2 hours prior to bedtime - Ascorbic Acid (VITAMIN C) 1,000 mg TbER Take by mouth. - Calcium Carb-Cholecalciferol (CALCIUM 600 WITH VITAMIN D3) 600-200 mg-unit ORAL Tab Take one(1) tablet two(2) times daily. Problem List As Of Date 08/13/2024 Noted Resolved Chronic interstitial cystitis [N30.10] 04/08/2006 Adjustment disorder with depressed mood [F43.21]05/20/2006 09/21/2019 Insomnia, unspecified [G47.00] 05/20/2006 Generalized hyperhidrosis [R61] 05/20/2006 Contact dermatitis and other eczema, due to uns*02/05/2008 12/07/2015 Cervicalgia [M54.2] 07/26/2008 09/21/2019 Pain in joint, shoulder region [M25.519] 07/26/2008 03/18/2017 Manic disorder, recurrent episode, moderate (HC*08/18/2008 Contact dermatitis and other eczema due to othe*02/03/2009 12/07/2015 Disorders of bursae and tendons in shoulder reg*02/26/2009 12/07/2015 Lumbar spinal stenosis [M48.061] 08/05/2009 Climacteric [N95.1] 01/13/2010 08/07/2016 Lung mass [R91.8] 09/07/2011 09/21/2019 Postmenopausal atrophic vaginitis [N95.2] 05/01/2012 Heavy alcohol use [F10.90] 01/14/2013 Epidural abscess [G06.2] 09/16/2013 04/28/2014 Chest pain, atypical [R07.89] 12/15/2013 04/28/2014 SOB (shortness of breath) [R06.02] 12/15/2013 04/28/2014 Degenerative arthritis of lumbar spine [M47.816]05/06/2014 Arnold-Chiari malformation (HCC) [Q07.00] 09/22/2014 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] 09/22/2014 Cervical spondylosis without myelopathy [M47.81*02/21/2015 Essential hypertension, benign [I10] 02/21/2015 Emphysema of lung (HCC) [J43.9] 03/18/2015 Osteoporosis [M81.0] 09/01/2015 Overactive bladder [N32.81] 09/01/2015 HSV (herpes simplex virus) anogenital infection*02/08/2016 09/21/2019 Asthma with COPD with exacerbation (HCC) [J44.1]09/05/2016 Nocturnal muscle cramps [R25.2] 09/11/2016 09/21/2019 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 [facility]12-11-2024 NoteHNO ID: [id number] Author: CHRISTINE PARKER RN Service: ? Author Type: Registered Nurse Type: Progress Notes Filed: 08/12/2024 15:15 Note Text: [facility] Telephonic Outreach Provider Action/I 1st attempt Contacted for: Routine Telephonic Outreach Contact made with patient: No, left message. Christine Parker RN August 12, 2024 3:14 [facility]12-11-2024 History of Present illness Narrative* Christine Parker RN - 08/12/2024 3:07 PM EST [facility] Telephonic Outreach Provider Action/FYI 1st attempt Contacted for: Routine Telephonic Outreach Contact made with patient: No, left message. Christine Parker RN August 12, 2024 3:14 PM documented in this encounterParkwood Hospital12-11-[facility]24 NotePatient Outreach ([facility]) DIONY RAMIREZ ([id number]) 1955 F Date Time Provider Department 08/12/24 CHRISTINE PARKER During your visit today, we recorded the following information about you: Christine Parker RN 08/12/2024 3:15 PM Signed CDM Telephonic Outreach Provider Action/I 1st attempt Contacted for: Routine Telephonic Outreach Contact made with patient: No, left message. Christine Parker RN August 12, 2024 3:14 PM Allergies As of Date: 08/12/2024 Noted Allergy Reaction FISH 06/23/2005 16 - Unknown HORSE/EQUINE CONTAINING PRODUCTS 08/30/2023 16 - Unknown LISINOPRIL 12/07/2015 3 - Cough SHELLFISH DERIVED 08/30/2023 16 - Unknown Date Reviewed: 08/03/2024 Reviewed by: Mila Kidd MA - Fully Assessed Reason for Visit: CDM [Other] Cmt: Telephonic Outreach Prescriptions as of 08/12/2024 - Dextromethorphan-guaiFENesin (ROBITUSSIN COUGH-CHEST ESTEFANÍA DM) 5-100 mg/5 mL liqd Take 10 mL by mouth every 4 hours as needed. - acyclovir (ZOVIRAX) 400 mg tablet Take 1 tablet by mouth two times a day. - omeprazole (PRILOSEC) 40 mg capsule Take 1 capsule by mouth once daily. - traZODone (DESYREL) 150 mg tablet Take 1 tablet by mouth daily at bedtime. - amLODIPine (NORVASC) 2.5 mg tablet Take 1 tablet by mouth once daily. - hydrOXYzine HCl (ATARAX) 10 mg tablet Take 1 tablet by mouth daily at bedtime. - FOLIC ACID ORAL Take by mouth as directed. - ZINC ORAL Take by mouth as directed. - SYMBICORT 160-4.5 mcg/actuation inhaler - BIOTIN ORAL Take 5,000 mcg by mouth. - ascorbic acid/collagen hydr (COLLAGEN PLUS VITAMIN C ORAL) Take 1,000 mg by mouth twice daily. - albuterol HFA (PROAIR HFA) 90 mcg/actuation inhaler Inhale 2 Puffs as instructed every 4 hours as needed for Wheezing/Shortness of Breath. - Melatonin 5 mg cap 5 mg by mouth taken 2 hours prior to bedtime - Ascorbic Acid (VITAMIN C) 1,000 mg TbER Take by mouth. - Calcium Carb-Cholecalciferol (CALCIUM 600 WITH VITAMIN D3) 600-200 mg-unit ORAL Tab Take one(1) tablet two(2) times daily. Problem List As Of Date 08/12/2024 Noted Resolved Chronic interstitial cystitis [N30.10] 04/08/2006 Adjustment disorder with depressed mood [F43.21]05/20/2006 09/21/2019 Insomnia, unspecified [G47.00] 05/20/2006 Generalized hyperhidrosis [R61] 05/20/2006 Contact dermatitis and other eczema, due to uns*02/05/2008 12/07/2015 Cervicalgia [M54.2] 07/26/2008 09/21/2019 Pain in joint, shoulder region [M25.519] 07/26/2008 03/18/2017 Manic disorder, recurrent episode, moderate (HC*08/18/2008 Contact dermatitis and other eczema due to othe*02/03/2009 12/07/2015 Disorders of bursae and tendons in shoulder reg*02/26/2009 12/07/2015 Lumbar spinal stenosis [M48.061] 08/05/2009 Climacteric [N95.1] 01/13/2010 08/07/2016 Lung mass [R91.8] 09/07/2011 09/21/2019 Postmenopausal atrophic vaginitis [N95.2] 05/01/2012 Heavy alcohol use [F10.90] 01/14/2013 Epidural abscess [G06.2] 09/16/2013 04/28/2014 Chest pain, atypical [R07.89] 12/15/2013 04/28/2014 SOB (shortness of breath) [R06.02] 12/15/2013 04/28/2014 Degenerative arthritis of lumbar spine [M47.816]05/06/2014 Arnold-Chiari malformation (HCC) [Q07.00] 09/22/2014 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] 09/22/2014 Cervical spondylosis without myelopathy [M47.81*02/21/2015 Essential hypertension, benign [I10] 02/21/2015 Emphysema of lung (HCC) [J43.9] 03/18/2015 Osteoporosis [M81.0] 09/01/2015 Overactive bladder [N32.81] 09/01/2015 HSV (herpes simplex virus) anogenital infection*02/08/2016 09/21/2019 Asthma with COPD with exacerbation (HCC) [J44.1]09/05/2016 Nocturnal muscle cramps [R25.2] 09/11/2016 09/21/2019 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] 10/10/2016 09/21/2019 Carpal tunnel syndrome, right [G56.01] 01/03/2017 09/21/2019 Chronic anxiety [F41.9] 06/17/2018 Lumbar radiculopathy [M54.16] 04/19/2020 Herpes [B00.9] 01/27/2021 Ex-smoker [Z87.891] 01/27/2021 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] 01/27/2021 History of 2019 novel coronavirus disease (COVI*01/27/2021 Multiple thyroid nodules [E04.2] 01/27/2021 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] 01/27/2021 Medicare annual wellness visit, subsequent [Z00*01/27/2021 Medication management [Z79.899] 01/27/2021 Elevated blood sugar [R73.9] 01/27/2021 Abnormal toxicological findings [R89.2] 02/01/2021 Lung nodules [R91.8] 05/30/2021 GERD without esophagitis [K21.9] 09/12/2022 Living will on file at physician's office [Z78.*09/27/2022 Advance directive discussed with patient [Z71.8*09/27/2022 Ectatic thoracic aorta (HCC) [I77.810] 12/04/2022 Chronic bilateral low back pain with sciatica [*07/15/2023 Encounter for screening mammogram for breast ca*06/09/2024 Encounter Status:Closed by CHRISTINE PARKER RN on 08/12/24[facility]12-04-2024 Telephone encounter Note* Telephone Encounter - Shanita Green PA-C - 08/05/2024 2:33 PM EST Consult placed. [facility]12-04-2024 Miscellaneous Notes* Telephone Encounter - Shanita Green PA-C - 08/05/2024 2:33 PM EST Consult placed. * Telephone Encounter - Aury Newton MA - 08/05/2024 1:56 PM EST Patient notified and voiced understanding. She is will to try a few visits to see. Please place consult and send to scheduling. Aury Newton MA * Telephone Encounter - Shanita Green PA-C - 08/05/2024 11:57 AM EST Let patient know that her xray shows arthritic changes. No acute findings. Would recommend PhysicalTherapy. Shanita Green PA-C documented in this encounterParkwood Hospital12-04-[facility]24 Telephone encounter Note * Telephone Encounter - Aury Newton MA - 08/05/2024 1:56 PM EST Patient notified and voiced understanding. She is will to try a few visits to see. Please place consult and send to scheduling. Aury Newton MA [facility]12-04-2024 Telephone encounter Note* Telephone Encounter - Shanita Green PA-C - 08/05/2024 11:57 AM EST Let patient know that her xray shows arthritic changes. No acute findings. Would recommend PhysicalTherapy. Shanita Green PA-C [facility]12-02-2024 History of Present illness Narrative* James Brewer RT(R) - 08/03/2024 9:40 AM EST Radiology Service Progress Note PATIENT NAME: Diony Ramirez DATE OF SERVICE: August 03, 2024 TIME: 10:11 AM PATIENT IDENTITY VERIFICATION COMPLETED USING TWO (2) IDENTIFIERS: Name and Date of confirmedby patient verbally. FALL SCREENING: Has the patient had 2 falls in the last year or 1 fall with injury or currently using an Ambulatory Assistive Device (Walker, Cane, Wheelchair, Crutches, etc.)? No PATIENT GENDER DATA: Female. status: : No status: NO. PATIENT RELEVANT IMPLANT DATA REVIEWED: Yes PATIENT PRESENTS WITH AN IMPLANTABLE OR ATTACHED ELECTRIC STOP INSTALLER: No RADIOLOGY DEPARTMENT: General X-ray: Exam(s) Completed: Pelvis X-Ray: Pelvis with Hip Left PERIPHERAL IV DATA: Not applicable SIGNED BY: RT Berry(Renata) August 03, 2024 10:11 AM documented in this encounterParkwood Hospital12-02-2024 NoteHNO ID: [id number] Author: JAMES BREWER RT(R) Service: ? Author Type: Commercial Loan Coordinator Type: Progress Notes Filed: 08/03/2024 10:21 Note Text: Radiology Service Progress Note PATIENT NAME: Diony Ramirez DATE OF SERVICE: August 03, 2024 TIME: 10:11 AM PATIENT IDENTITY VERIFICATION COMPLETED USING TWO (2) IDENTIFIERS: Name and Date of confirmed by patient verbally. FALL SCREENING: Has the patient had 2 falls in the last year or 1 fall with injury or currently using an Ambulatory Assistive Device (Walker, Cane, Wheelchair, Crutches, etc.)? No PATIENT GENDER DATA: Female. status: : No status: NO. PATIENT RELEVANT IMPLANT DATA REVIEWED: Yes PATIENT PRESENTS WITH AN IMPLANTABLE OR ATTACHED ELECTRIC STOP INSTALLER: No RADIOLOGY DEPARTMENT: General X-ray: Exam(s) Completed: Pelvis X-Ray: Pelvis with Hip Left PERIPHERAL IV DATA: Not applicable SIGNED BY: RT Berry(R) August 03, 2024 10:11 [facility]12-02-2024 Instructions* Patient Instructions* Alex Brown APRN.LUIS FELIPE - 08/03/2024 9:31 AM EST Magnesium glycinate-200mg at night documented in this encounterParkwood Hospital12-02-2024 NoteHNO ID: [id number] Author: ALEX BROWN APRN.LUIS FELIPE Service: ? Author Type: Nurse Practitioner Type: Progress Notes Filed: 08/03/2024 09:31 Note Text: Chief Complaint Patient presents with: side pain: Left side pain X2 weeks HPI Diony Ramirez is a 69 year old female who presents here today for Above Complaints.. Patient reports for left side pain x2 weeks. Patient reports she has had pain consistently and it is worse with certain movements like twisting or bending. Past medical history, appointments, medications, allergies reviewed. Previous Medical History PAST MEDICAL HISTORY Diagnosis Date Abnormal toxicological findings 02/01/2021 Tox screen 01/27/2021 showed no benzos and pos for oxycodone which patient was not on. Patient informed of no further controlled med refills. 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 Chronic anxiety 06/17/2018 Degenerative arthritis of lumbar spine 05/06/2014 Ectatic thoracic aorta (HCC) 12/04/2022 CT done 12/2022 Elevated blood sugar 01/27/2021 Emphysema of lung (HCC) 03/18/2015 Essential hypertension, benign 02/21/2015 Ex-smoker 01/27/2021 Started around 89 and quit 2005. Smoked about 1.5 PPD GERD without esophagitis 09/12/2022 Herpes 01/27/2021 History of 2019 novel coronavirus disease (COVID-19) 01/27/202106/2020 History of small bowel obstruction HSV (herpes simplex virus) anogenital infection 02/08/2016 Living will on file at physician's office 09/27/2022 DPA: Reina Denise (aunt) Lung mass 09/07/2011 Lung nodules 05/30/[address] Suleman Gustafson Medicare annual wellness visit, subsequent 01/27/2021 Medicare Part B: NA Last done: Multiple thyroid nodules 01/27/[address] Vigil and f/u was stable. Told no need for further f/u. 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 Takes mid morning. Substance agreement signed and Tox screen done 12/2020. 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 COLONOSCOPY FLX DX W/COLLJ SPEC WHEN PFRMD 08/19/2006 Repeat in COLONOSCOPY FLX DX W/COLLJ SPEC WHEN PFRMD 06/27/2016 Colonoscopy CRANIOPLASTY SKULL DEF/REPAIR/ BRAIN 09/14/2014 See scanned documents - status post ESOPHAGOGASTRODUODENOSCOPY TRANSORAL DIAGNOSTIC 06/27/2016 EGD ESOPHAGOGASTRODUODENOSCOPY TRANSORAL DIAGNOSTIC 06/30/2018 EGD IANDD ABSCESS CMPLX/MULT 07/2013 Epidural abscess- MSSA LIG/TRNSXJ FLP TUBE ABDL/VAG APPR UNI/BI Tubal ligation PAST SURGICAL HISTORY OF spinal surgery PAST SURGICAL HISTORY OF retinal detachment OD, (2 tears) PAST SURGICAL HISTORY OF 2013 back surgery STRESS TEST NUCLEAR 05/23/2021 negative Family History FAMILY HISTORY Problem Relation Age of Onset Hypertension Mother other (cerebral aneurysm) Mother Colon Polyps Father Hypertension Father COPD Father Cancer Father Bladder Cancer other (Past medical history) Father abdominal aneurysm/bladder cancer other (aortic aneurysm) Father Aneurysm Paternal Grandfather Patient Allergies ALLERGIES Allergen Reactions Fish Unknown Horse/Equine Contai* Unknown Lisinopril Cough Shellfish Derived Unknown Current Medications Current Outpatient Medications on File Prior to Visit Medication Sig predniSONE (DELTASONE) 10 mg tablet Take 3 tablets by mouth once daily for 3 days, THEN 2 tablets once daily for 3 days, THEN 1 tablet once daily for 3 days. doxycycline (VIBRA-TABS) 100 mg tablet Take 1 tablet by mouth two times a day for 7 days. Dextromethorphan-guaiFENesin (ROBITUSSIN COUGH-CHEST ESTEFANÍA DM) 5-100 mg/5 mL liqd Take 10 mL by mouth every 4 hours as needed. phenazopyridine (PYRIDIUM) 100 mg tablet Take 1 tablet by mouth three times a day as needed. (Patient not taking: Reported on 07/31/2024) acyclovir (ZOVIRAX) 400 mg tablet Take 1 tablet by mouth two times a day. omeprazole (PRILOSEC) 40 mg capsule Take 1 capsule by mouth once daily. traZODone (DESYREL) 150 mg tablet Take 1 tablet by mouth daily at bedtime. amLODIPine (NORVASC) 2.5 mg tablet Take 1 tablet by mouth once daily. hydrOXYzine HCl (ATARAX) 10 mg tablet Take 1 tablet by mouth daily at bedtime. FOLIC ACID ORAL Take by mouth as directed. ZINC ORAL Take by mouth as directed. SYMBICORT 160-4.5 mcg/actuation inhaler BIOTIN OR (more content not included)...[facility]12-02-[facility] History of Present illness Narrative* Alex Brown APRN.SENIOR INFORMATICA DEVELOPER - 08/03/2024 9:21 AM EST Chief Complaint Patient presents with: side pain: Left side pain X2 weeks HPI Diony Ramirez is a 69 year old female who presents here today for Above Complaints.. Patient reports for left side pain x2 weeks. Patient reports she has had pain consistently and it is worse with certain movements like twisting or bending. Past medical history, appointments, medications, allergies reviewed. Previous Medical History PAST MEDICAL HISTORY Diagnosis Date Abnormal toxicological findings 02/01/2021 Tox screen 01/27/2021 showed no benzos and pos for oxycodone which patient was not on. Patient informed of no further controlled med refills. 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 Chronic anxiety 06/17/2018 Degenerative arthritis of lumbar spine 05/06/2014 Ectatic thoracic aorta ([facility]) 12/04/2022 CT done 12/2022 Elevated blood sugar 01/27/2021 Emphysema of lung ([facility]) 03/18/2015 Essential hypertension, benign 02/21/2015 Ex-smoker 01/27/2021 Started around 89 and quit 2004. Smoked about 1.5 PPD GERD without esophagitis 09/12/2022 Herpes 01/27/2021 History of 2019 novel coronavirus disease (COVID-19) 01/27/202106/2020 History of small bowel obstruction HSV (herpes simplex virus) anogenital infection 02/08/2016 Living will on file at physician's office 09/27/2022 DPA: Reina Chamorrot (aunt) Lung mass 09/07/2011 Lung nodules 05/30/[address] Suleman Gustafson Medicare annual wellness visit, subsequent 01/27/2021 Medicare Part B: NA Last done: Multiple thyroid nodules 01/27/[address] Vigil and f/u was stable. Told no need for further f/u. 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 Takes mid morning. Substance agreement signed and Tox screen done 12/2020. 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 COLONOSCOPY FLX DX W/COLLJ SPEC WHEN PFRMD 08/19/2006 Repeat in -2015 COLONOSCOPY FLX DX W/COLLJ SPEC WHEN PFRMD 06/27/2016 Colonoscopy CRANIOPLASTY SKULL DEF/REPAIR/ BRAIN 09/14/2014 See scanned documents - status post ESOPHAGOGASTRODUODENOSCOPY TRANSORAL DIAGNOSTIC 06/27/2016 EGD ESOPHAGOGASTRODUODENOSCOPY TRANSORAL DIAGNOSTIC 06/30/2018 EGD I&D ABSCESS CMPLX/MULT 07/2013 Epidural abscess- MSSA LIG/TRNSXJ FLP TUBE ABDL/VAG APPR UNI/BI Tubal ligation PAST SURGICAL HISTORY OF spinal surgery PAST SURGICAL HISTORY OF retinal detachment OD, (2 tears) PAST SURGICAL HISTORY OF 2012 back surgery STRESS TEST NUCLEAR 05/23/2021 negative Family History FAMILY HISTORY Problem Relation Age of Onset Hypertension Mother other (cerebral aneurysm) Mother Colon Polyps Father Hypertension Father COPD Father Cancer Father Bladder Cancer other (Past medical history) Father abdominal aneurysm/bladder cancer other (aortic aneurysm) Father Aneurysm Paternal Grandfather Patient Allergies ALLERGIES Allergen Reactions Fish Unknown Horse/Equine Contai* Unknown Lisinopril Cough Shellfish Derived Unknown Current Medications Current Outpatient Medications on File Prior to Visit Medication Sig predniSONE (DELTASONE) 10 mg tablet Take 3 tablets by mouth once daily for 3 days, THEN 2 tablets once daily for 3 days, THEN 1 tablet once daily for 3 days. doxycycline (VIBRA-TABS) 100 mg tablet Take 1 tablet by mouth two times a day for 7 days. Dextromethorphan-guaiFENesin (ROBITUSSIN COUGH-CHEST ESTEFANÍA DM) 5-100 mg/5 mL liqd Take 10 mL by mouth every 4 hours as needed. phenazopyridine (PYRIDIUM) 100 mg tablet Take 1 tablet by mouth three times a day as needed. (Patient not taking: Reported on 07/31/2024) acyclovir (ZOVIRAX) 400 mg tablet Take 1 tablet by mouth two times a day. omeprazole (PRILOSEC) 40 mg capsule Take 1 capsule by mouth once daily. traZODone (DESYREL) 150 mg tablet Take 1 tablet by mouth daily at bedtime. amLODIPine (NORVASC) 2.5 mg tablet Take 1 tablet by mouth once daily. hydrOXYzine HCl (ATARAX) 10 mg tablet Take 1 tablet by mouth daily at bedtime. FOLIC ACID ORAL Take by mouth as directed. ZINC ORAL Take by mouth as directed. SYMBICORT 160-4.5 mcg/actuation inhaler BIOTIN ORAL Take 5,000 mcg by mouth. ascorbic acid/collagen hydr (COLLAGEN PLUS VITAMIN C ORAL) Take 1,000 mg by mouth twice daily. albuterol HFA (PROAIR HFA) 90 mcg/actuation inhaler Inhale 2 Puffs as instructed every 4 hours as needed for Wheezing/Shortness of Breath. Melatonin 5 mg cap 5 mg by mouth taken 2 hours prior to bedtime (Patient taking differently: 10 mg.5 mg by mouth taken 2 hours prior to bedtime) Ascorbic Acid (VITAMIN C) 1,000 mg TbER Take by mouth. Calcium Carb-Cholecalciferol (CALCIUM 600 WITH VITAMIN D3) 600-200 mg-unit ORAL Tab Take one(1) tablet two(2) times daily. No current facility-administered medications on file prior to visit. Social History Social History Tobacco Use Smoking status: Former Current packs/day: 0.00 Average packs/day: 1.5 packs/day for 15.0 years (22.5 ttl pk-yrs) Types: Cigarettes Start date: 07/31/1990 Quit date: 07/31/2005 Years since quittin.0 Smokeless tobacco: Never Vaping Use Vaping status: Never Used Substance Use Topics Alcohol use: Yes Alcohol/week: 10.0 - 15.0 standard drinks of alcohol Types: 10 - 15 Cans of Beer (12oz) per week Comment: 5-8 beers daily Drug use: No Review of Symptoms REVIEW OF SYSTEMS SEE HPI EXAM: BP 135/78 Pulse 79 Wt 41.7 kg (92 lb) LMP 03/23/2007 BMI 19.91 kg/m General Appearance: Well appearing, alert, in no acute distress, well-hydrated, well nourished. Extremities: Positive findings: joint location: on left hip pain, painful movement, and stiffness. Health Maintenance List Depression Screening Never done BP Controlled (<130/80) due on 11/20/2023 Bone Density Screening due on 11/13/2024 Annual PCP Team Chronic Disease Visit due on 06/05/2025 Mammogram Screening due on 07/01/2025 Colorectal Cancer Screening due on 06/27/2026 Diabetes Screening due on 09/23/2026 Lipid Screening due on 09/23/2028 DTaP,Tdap,Td Vaccine(3 - Td or Tdap) due on 12/18/2028 Influenza Vaccine Completed Advance Directive Discussion Completed RSV Vaccine Completed Hepatitis C Screening Completed Shingrix Vaccine Completed Pneumococcal Vaccine: 65+ Completed Alpha-1 Antitrypsin Deficiency Screening Discontinued Spirometry Discontinued Cervical Cancer Screening Discontinued Covid-19 Vaccine Discontinued ASSESSMENT/PLAN: 1. Left hip pain - ICD9: 719.45, ICD10: M25.552 - XR HIP GENERAL 3V PELV/AP/LAT LEFT Alex Brown APRN.SENIOR INFORMATICA DEVELOPER documented in this encounter[facility] History of Present illness Narrative* Bashir Landa RT(R) - 07/31/2024 11:00 AM EST Radiology Service Progress Note PATIENT NAME: Diony Ramirez DATE OF SERVICE: July 31, 2024 TIME: 11:03 AM PATIENT IDENTITY VERIFICATION COMPLETED USING TWO (2) IDENTIFIERS: Name and Date of confirmedby patient verbally. FALL SCREENING: Has the patient had 2 falls in the last year or 1 fall with injury or currently using an Ambulatory Assistive Device (Walker, Cane, Wheelchair, Crutches, etc.)? No PATIENT GENDER DATA: Female. status: : No status: NO. PATIENT RELEVANT IMPLANT DATA REVIEWED: Not Applicable PATIENT PRESENTS WITH AN IMPLANTABLE OR ATTACHED ELECTRIC STOP INSTALLER: No RADIOLOGY DEPARTMENT: General X-ray: Exam(s) Completed: Chest X-Ray PERIPHERAL IV DATA: Not applicable SIGNED BY: RT Rivka(R) July 31, 2024 11:03 AM documented in this encounterParkwood [facility]11-29-2024 NoteHNO ID: [id number] Author: BASHIR LANDA RT(Renata) Service: ? Author Type: Technologist Type: Progress Notes Filed: 07/31/2024 11:08 Note Text: Radiology Service Progress Note PATIENT NAME: Diony Ramirez DATE OF SERVICE: July 31, 2024 TIME: 11:03 AM PATIENT IDENTITY VERIFICATION COMPLETED USING TWO (2) IDENTIFIERS: Name and Date of confirmed by patient verbally. FALL SCREENING: Has the patient had 2 falls in the last year or 1 fall with injury or currently using an Ambulatory Assistive Device (Walker, Cane, Wheelchair, Crutches, etc.)? No PATIENT GENDER DATA: Female. status: : No status: NO. PATIENT RELEVANT IMPLANT DATA REVIEWED: Not Applicable PATIENT PRESENTS WITH AN IMPLANTABLE OR ATTACHED ELECTRIC STOP INSTALLER: No RADIOLOGY DEPARTMENT: General X-ray: Exam(s) Completed: Chest X-Ray PERIPHERAL IV DATA: Not applicable SIGNED BY: RT Rivka(Renata) July 31, 2024 11:03 [facility]11-29-2024 NoteHNO ID: [id number] Author: SHANNA NEWTON APRN.SENIOR INFORMATICA DEVELOPER Service: ? Author Type: Nurse Practitioner Type: Progress Notes Filed: 07/31/2024 11:45 Note Text: CC: Patient presents with: Cough: X 3 days HPI: Diony Ramirez is a 69 year old female who presents to the office with complaint of cough, nonproductive for a few days. Symptoms are worsening Associated symptoms includes wheezing and dyspnea. Denies fever, nausea, vomiting , and diarrhea. Treatments tried include nothing so far. with no relief of symptoms. Sick contacts: unknown. History of asthma, frequent episodes of bronchitis, chronic bronchitis, bronchiectasis or COPD: Yes copd Seasonal/environmental allergies: No The ROS is otherwise negative. The patient's pmh, medications, allergies, and past visits are reviewed. PHYSICAL EXAM: BP 148/88 Pulse 96 Temp 37.4 ?C (99.3 ?F) (Left Tympanic) Resp 20 Wt 41.2 kg (90 lb 13.3 oz) LMP 03/23/2007 SpO2 92% BMI 19.66 kg/m? General appearance: alert, cooperative, pleasant, in no acute distress Head: Normocephalic Eyes: EOM's intact, conjunctiva pink and moist, no icterus, sclera white, non-injected Ears: Right ear: External ear/canal- Normal, TM - clear with good landmarks. Left ear: External ear/canal- Normal, TM - clear with good landmarks Oropharynx:moist without lesions, No erythema, exudates or tonsillar hypertrophy. Heart: Negative. RRR without obvious murmur, gallop, or rubs. No ectopy. Lungs: wheezing diffusely PAST MEDICAL HISTORY Diagnosis Date Abnormal toxicological findings 02/01/2021 Tox screen 01/27/2021 showed no benzos and pos for oxycodone which patient was not on. Patient informed of no further controlled med refills. 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 Chronic anxiety 06/17/2018 Degenerative arthritis of lumbar spine 05/06/2014 Ectatic thoracic aorta (HCC) 12/04/2022 CT done 12/2022 Elevated blood sugar 01/27/2021 Emphysema of lung (HCC) 03/18/2015 Essential hypertension, benign 02/21/2015 Ex-smoker 01/27/2021 Started around 89 and quit 2005. Smoked about 1.5 PPD GERD without esophagitis 09/12/2022 Herpes 01/27/2021 History of 2019 novel coronavirus disease (COVID-19) 01/27/202106/2020 History of small bowel obstruction HSV (herpes simplex virus) anogenital infection 02/08/2016 Living will on file at physician's office 09/27/2022 DPA: Reina Lint (aunt) Lung mass 09/07/2011 Lung nodules 05/30/[address] Suleman Gustafson Medicare annual wellness visit, subsequent 01/27/2021 Medicare Part B: NA Last done: Multiple thyroid nodules 01/27/[address] Vigil and f/u was stable. Told no need for further f/u. 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 Takes mid morning. Substance agreement signed and Tox screen done 12/2020. 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 COLONOSCOPY FLX DX W/COLLJ SPEC WHEN PFRMD 08/19/2006 Repeat in COLONOSCOPY FLX DX W/COLLJ SPEC WHEN PFRMD 06/27/2016 Colonoscopy CRANIOPLASTY SKULL DEF/REPAIR/ BRAIN 09/14/2014 See scanned documents - status post ESOPHAGOGASTRODUODENOSCOPY TRANSORAL DIAGNOSTIC 06/27/2016 EGD ESOPHAGOGASTRODUODENOSCOPY TRANSORAL DIAGNOSTIC 06/30/2018 EGD IANDD ABSCESS CMPLX/MULT 07/2013 Epidural abscess- MSSA LIG/TRNSXJ FLP TUBE ABDL/VAG APPR UNI/BI Tubal ligation PAST SURGICAL HISTORY OF spinal surgery PAST SURGICAL HISTORY OF retinal detachment OD, (2 tears) PAST SURGICAL HISTORY OF 2012 back surgery STRESS TEST NUCLEAR 05/23/2021 negative ALLERGIES Fish, Horse/Equine Containing Products, Lisinopril, and Shellfish Derived MEDICATIONS Dextromethorphan-guaiFENesin (ROBITUSSIN COUGH-CHEST ESTEFANÍA DM) 5-100 mg/5 mL liqd Take 10 mL by mouth every 4 hours as needed. acyclovir (ZOVIRAX) 400 mg tablet Take 1 tablet by mouth two times a day. omeprazole (PRILOSEC) 40 mg capsule Take 1 capsule by mouth once daily. traZODone (DESYREL) 150 mg tablet Take 1 tablet by mouth daily at bedtime. amLODIPine (NORVASC) 2.5 mg tablet Take 1 tablet by mouth once daily. hydrOXYzine HCl (ATARAX) 10 mg tablet Take 1 tablet by mouth daily at bedtime. FOLIC ACID ORAL Take by mouth as directed. ZINC ORAL Take by mouth as directed. SYMBICORT 160-4.5 mcg/actuation inhaler BIOTIN OR (more content not included)...[facility]11-29-[facility] History of Present illness Narrative* Shanna Newton APRN.SENIOR INFORMATICA DEVELOPER - 07/31/2024 10:56 AM EST CC: Patient presents with: Cough: X 3 days HPI: Diony Ramirez is a 69 year old female who presents to the office with complaint of cough, nonproductive for a few days. Symptoms are worsening Associated symptoms includes wheezing and dyspnea. Denies fever, nausea, vomiting , and diarrhea. Treatments tried include nothing so far. with no relief of symptoms. Sick contacts: unknown. History of asthma, frequent episodes of bronchitis, chronic bronchitis, bronchiectasis or COPD: Yescopd Seasonal/environmental allergies: No The ROS is otherwise negative. The patient's pmh, medications, allergies, and past visits are reviewed. PHYSICAL EXAM: BP 148/88 Pulse 96 Temp 37.4 C (99.3 F) (Left Tympanic) Resp 20 Wt 41.2 kg (90 lb 13.3 oz) LMP 03/23/2007 SpO2 92% BMI 19.66 kg/m General appearance: alert, cooperative, pleasant, in no acute distress Head: Normocephalic Eyes: EOM's intact, conjunctiva pink and moist, no icterus, sclera white, non-injected Ears: Right ear: External ear/canal- Normal, TM - clear with good landmarks. Left ear: External ear/canal- Normal, TM - clear with good landmarks Oropharynx:moist without lesions, No erythema, exudates or tonsillar hypertrophy. Heart: Negative. RRR without obvious murmur, gallop, or rubs. No ectopy. Lungs: wheezing diffusely PAST MEDICAL HISTORY Diagnosis Date Abnormal toxicological findings 02/01/2021 Tox screen 01/27/2021 showed no benzos and pos for oxycodone which patient was not on. Patient informed of no further controlled med refills. 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 Chronic anxiety 06/17/2018 Degenerative arthritis of lumbar spine 05/06/2014 Ectatic thoracic aorta (HCC) 12/04/2022 CT done 12/2022 Elevated blood sugar 01/27/2021 Emphysema of lung (HCC) 03/18/2015 Essential hypertension, benign 02/21/2015 Ex-smoker 01/27/2021 Started around 89 and quit 2004. Smoked about 1.5 PPD GERD without esophagitis 09/12/2022 Herpes 01/27/2021 History of 2019 novel coronavirus disease (COVID-19) 01/27/202106/2020 History of small bowel obstruction HSV (herpes simplex virus) anogenital infection 02/08/2016 Living will on file at physician's office 09/27/2022 DPA: Reina Denise (aunt) Lung mass 09/07/2011 Lung nodules 05/30/[address] Suleman Gustafson Medicare annual wellness visit, subsequent 01/27/2021 Medicare Part B: NA Last done: Multiple thyroid nodules 01/27/[address] Vigil and f/u was stable. Told no need for further f/u. 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 Takes mid morning. Substance agreement signed and Tox screen done 12/2020. 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 COLONOSCOPY FLX DX W/COLLJ SPEC WHEN PFRMD 08/19/2006 Repeat in COLONOSCOPY FLX DX W/COLLJ SPEC WHEN PFRMD 06/27/2016 Colonoscopy CRANIOPLASTY SKULL DEF/REPAIR/ BRAIN 09/14/2014 See scanned documents - status post ESOPHAGOGASTRODUODENOSCOPY TRANSORAL DIAGNOSTIC 06/27/2016 EGD ESOPHAGOGASTRODUODENOSCOPY TRANSORAL DIAGNOSTIC 06/30/2018 EGD I&D ABSCESS CMPLX/MULT 07/2013 Epidural abscess- MSSA LIG/TRNSXJ FLP TUBE ABDL/VAG APPR UNI/BI Tubal ligation PAST SURGICAL HISTORY OF spinal surgery PAST SURGICAL HISTORY OF 2/307 retinal detachment OD, (2 tears) PAST SURGICAL HISTORY OF 2013 back surgery STRESS TEST NUCLEAR 05/23/2021 negative ALLERGIES Fish, Horse/Equine Containing Products, Lisinopril, and Shellfish Derived MEDICATIONS Dextromethorphan-guaiFENesin (ROBITUSSIN COUGH-CHEST ESTEFANÍA DM) 5-100 mg/5 mL liqd Take 10 mL by mouth every 4 hours as needed. acyclovir (ZOVIRAX) 400 mg tablet Take 1 tablet by mouth two times a day. omeprazole (PRILOSEC) 40 mg capsule Take 1 capsule by mouth once daily. traZODone (DESYREL) 150 mg tablet Take 1 tablet by mouth daily at bedtime. amLODIPine (NORVASC) 2.5 mg tablet Take 1 tablet by mouth once daily. hydrOXYzine HCl (ATARAX) 10 mg tablet Take 1 tablet by mouth daily at bedtime. FOLIC ACID ORAL Take by mouth as directed. ZINC ORAL Take by mouth as directed. SYMBICORT 160-4.5 mcg/actuation inhaler BIOTIN ORAL Take 5,000 mcg by mouth. ascorbic acid/collagen hydr (COLLAGEN PLUS VITAMIN C ORAL) Take 1,000 mg by mouth twice daily. albuterol HFA (PROAIR HFA) 90 mcg/actuation inhaler Inhale 2 Puffs as instructed every 4 hours as needed for Wheezing/Shortness of Breath. Melatonin 5 mg cap 5 mg by mouth taken 2 hours prior to bedtime (Patient taking differently: 10 mg.5 mg by mouth taken 2 hours prior to bedtime) Ascorbic Acid (VITAMIN C) 1,000 mg TbER Take by mouth. Calcium Carb-Cholecalciferol (CALCIUM 600 WITH VITAMIN D3) 600-200 mg-unit ORAL Tab Take one(1) tablet two(2) times daily. predniSONE (DELTASONE) 10 mg tablet Take 3 tablets by mouth once daily for 3 days, THEN 2 tablets once daily for 3 days, THEN 1 tablet once daily for 3 days. doxycycline (VIBRA-TABS) 100 mg tablet Take 1 tablet by mouth two times a day for 7 days. phenazopyridine (PYRIDIUM) 100 mg tablet Take 1 tablet by mouth three times a day as needed. (Patient not taking: Reported on 07/31/2024) FAMILY HISTORY Problem Relation Age of Onset Hypertension Mother other (cerebral aneurysm) Mother Colon Polyps Father Hypertension Father COPD Father Cancer Father Bladder Cancer other (Past medical history) Father abdominal aneurysm/bladder cancer other (aortic aneurysm) Father Aneurysm Paternal Grandfather Social History Tobacco Use Smoking status: Former Current packs/day: 0.00 Average packs/day: 1.5 packs/day for 15.0 years (22.5 ttl pk-yrs) Types: Cigarettes Start date: 07/31/1990 Quit date: 07/31/2005 Years since quittin.0 Smokeless tobacco: Never Vaping Use Vaping status: Never Used Substance Use Topics Alcohol use: Yes Alcohol/week: 10.0 - 15.0 standard drinks of alcohol Types: 10 - 15 Cans of Beer (12oz) per week Comment: 5-8 beers daily Drug use: No ASSESSMENT/PLAN: 1. Acute cough - ICD9: 786.2, ICD10: R05.1 (primary diagnosis) - XR CHEST 2V FRONTAL/LAT * * * * Physician Interpretation * * * * EXAMINATION: CHEST RADIOGRAPH (2 VIEW FRONTAL & LATERAL) CLINICAL HISTORY: Acute cough MQ: [id number] EXAM DATE/TIME: 07/31/2024 11:07 AM COMPARISON: Chest x-ray on 04/14/2024 RESULT: Lines, tubes, and devices: None. Lungs and pleura: Small patchy opacities seen in the lower lobe on the lateral view. No lung mass. No pleural effusion. No pneumothorax. Cardiomediastinal silhouette: Stable cardiomediastinal silhouette. Bones and soft tissues: The spine shows right-sided curvature and degenerative changes. IMPRESSION IMPRESSION: Small patchy opacities in the lower lobe, raising concern for pneumonia or aspiration. Please clinically correlate. Community Health Educator: LEONARDO Transcribe Date/Time: Jul 31 2024 11:30A Dictated by : LAURIE KAYE MD - PREDNISONE 10 MG TABLET 2. Bacterial pneumonia - ICD9: 482.9, ICD10: J15.9 - DOXYCYCLINE HYCLATE 100 MG TABLET Prescription instructions reviewed with patient as applicable. Potential red flag symptoms discussed with the patient. Reviewed appropriate action plan to take if red flag symptoms occur. Patient agreeable to treatment plan. Shanna Newton APRN.LUIS FELIPE documented in this encounterPark[facility]11-20-2024 NoteHNO ID: [id number] Author: MELITA LE LPN Service: ? Author Type: LICENSED NURSE Type: Progress Notes Filed: 07/22/2024 08:12 Note Text: Scan on 07/21/2024 4:53 PM by ProviderJenna PA-C: [facility] History of Present illness Narrative* Melita Le LPN - 07/22/2024 8:11 AM EST Scan on 07/21/2024 4:53 PM by ProviderJenna PA-C: Consultation - Pulmonary documented in this encounterParkwood Hospital11-14-2024 NoteHNO ID: [id number] Author: CHRISTINE PARKER RN Service: ? Author Type: Registered Nurse Type: Progress Notes Filed: 07/16/2024 15:27 Note Text: CDM Telephonic Outreach Provider Action/FYI Contacted for: Routine Telephonic Outreach Contact made with patient: Yes Patient identified by name and date of . Discussed care with patient Are you experiencing any new or worsening symptoms you need to talk about today? No Disease Specific Do you check your blood pressure at home? No Do you have new or worsening shortness of breath with activity? No Do you have new or worsening cough? No Do you have new or worsening wheezing? No Do you need to use your rescue (Albuterol) inhaler or nebulizer more often than normal? No Based on communications clerk, the following disposition is advised: No symptoms or symptoms present, not severe. Routed to: No Action Needed PALOMA Education Provided this Outreach: No Pt reports she is doing ok and she is not having any new or worsening cdm concerns at this time. She will contact the office with any needs. Christine Parker RN July 16, 2024 3:26 [facility]11-14-2024 History of Present illness Narrative* Christine Parker RN - 07/16/2024 3:18 PM EST CDM Telephonic Outreach Provider Action/FYI Contacted for: Routine Telephonic Outreach Contact made with patient: Yes Patient identified by name and date of . Discussed care with patient Are you experiencing any new or worsening symptoms you need to talk about today? No Disease Specific Do you check your blood pressure at home? No Do you have new or worsening shortness of breath with activity? No Do you have new or worsening cough? No Do you have new or worsening wheezing? No Do you need to use your rescue (Albuterol) inhaler or nebulizer more often than normal? No Based on communications clerk, the following disposition is advised: No symptoms or symptoms present, not severe. Routed to: No Action Needed PALOMA Education Provided this Outreach: No Pt reports she is doing ok and she is not having any new or worsening cdm concerns at this time. She will contact the office with any needs. Christine Parker RN July 16, 2024 3:26 PM documented in this encounterParkwood Hospital11-14-2024 NotePatient Outreach ([facility]) DIONY RAMIREZ ([id number]) 1955 F Date Time Provider Department 07/16/24 CHRISTINE PARKER During your visit today, we recorded the following information about you: Christine Parker RN 07/16/2024 3:27 PM Signed CDM Telephonic Outreach Provider Action/FYI Contacted for: Routine Telephonic Outreach Contact made with patient: Yes Patient identified by name and date of . Discussed care with patient Are you experiencing any new or worsening symptoms you need to talk about today? No Disease Specific Do you check your blood pressure at home? No Do you have new or worsening shortness of breath with activity? No Do you have new or worsening cough? No Do you have new or worsening wheezing? No Do you need to use your rescue (Albuterol) inhaler or nebulizer more often than normal? No Based on communications clerk, the following disposition is advised: No symptoms or symptoms present, not severe. Routed to: No Action Needed PALOMA Education Provided this Outreach: No Pt reports she is doing ok and she is not having any new or worsening cdm concerns at this time. She will contact the office with any needs. Christine Parker RN July 16, 2024 3:26 PM Allergies As of Date: 07/16/2024 Noted Allergy Reaction FISH 06/23/2005 16 - Unknown HORSE/EQUINE CONTAINING PRODUCTS 08/30/2023 16 - Unknown LISINOPRIL 12/07/2015 3 - Cough SHELLFISH DERIVED 08/30/2023 16 - Unknown Date Reviewed: 06/07/2024 Reviewed by: Angelina Paul LPN - Fully Assessed Reason for Visit: CDM [Other] Cmt: Telephonic Outreach Prescriptions as of 07/16/2024 - Dextromethorphan-guaiFENesin (ROBITUSSIN COUGH-CHEST ESTEFANÍA DM) 5-100 mg/5 mL liqd Take 10 mL by mouth every 4 hours as needed. - phenazopyridine (PYRIDIUM) 100 mg tablet Take 1 tablet by mouth three times a day as needed. - acyclovir (ZOVIRAX) 400 mg tablet Take 1 tablet by mouth two times a day. - omeprazole (PRILOSEC) 40 mg capsule Take 1 capsule by mouth once daily. - traZODone (DESYREL) 150 mg tablet Take 1 tablet by mouth daily at bedtime. - amLODIPine (NORVASC) 2.5 mg tablet Take 1 tablet by mouth once daily. - hydrOXYzine HCl (ATARAX) 10 mg tablet Take 1 tablet by mouth daily at bedtime. - FOLIC ACID ORAL Take by mouth as directed. - ZINC ORAL Take by mouth as directed. - SYMBICORT 160-4.5 mcg/actuation inhaler - BIOTIN ORAL Take 5,000 mcg by mouth. - ascorbic acid/collagen hydr (COLLAGEN PLUS VITAMIN C ORAL) Take 1,000 mg by mouth twice daily. - albuterol HFA (PROAIR HFA) 90 mcg/actuation inhaler Inhale 2 Puffs as instructed every 4 hours as needed for Wheezing/Shortness of Breath. - Melatonin 5 mg cap 5 mg by mouth taken 2 hours prior to bedtime - Ascorbic Acid (VITAMIN C) 1,000 mg TbER Take by mouth. - Calcium Carb-Cholecalciferol (CALCIUM 600 WITH VITAMIN D3) 600-200 mg-unit ORAL Tab Take one(1) tablet two(2) times daily. Problem List As Of Date 07/16/2024 Noted Resolved Chronic interstitial cystitis [N30.10] 04/08/2006 Adjustment disorder with depressed mood [F43.21]05/20/2006 09/21/2019 Insomnia, unspecified [G47.00] 05/20/2006 Generalized hyperhidrosis [R61] 05/20/2006 Contact dermatitis and other eczema, due to uns*02/05/2008 12/07/2015 Cervicalgia [M54.2] 07/26/2008 09/21/2019 Pain in joint, shoulder region [M25.519] 07/26/2008 03/18/2017 Manic disorder, recurrent episode, moderate (HC*08/18/2008 Contact dermatitis and other eczema due to othe*02/03/2009 12/07/2015 Disorders of bursae and tendons in shoulder reg*02/26/2009 12/07/2015 Lumbar spinal stenosis [M48.061] 08/05/2009 Climacteric [N95.1] 01/13/2010 08/07/2016 Lung mass [R91.8] 09/07/2011 09/21/2019 Postmenopausal atrophic vaginitis [N95.2] 05/01/2012 Heavy alcohol use [F10.90] 01/14/2013 Epidural abscess [G06.2] 09/16/2013 04/28/2014 Chest pain, atypical [R07.89] 12/15/2013 04/28/2014 SOB (shortness of breath) [R06.02] 12/15/2013 04/28/2014 Degenerative arthritis of lumbar spine [M47.816]05/06/2014 Arnold-Chiari malformation (HCC) [Q07.00] 09/22/2014 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] 09/22/2014 Cervical spondylosis without myelopathy [M47.81*02/21/2015 Essential hypertension, benign [I10] 02/21/2015 Emphysema of lung (HCC) [J43.9] 03/18/2015 Osteoporosis [M81.0] 09/01/2015 Overactive bladder [N32.81] 09/01/2015 HSV (herpes simplex virus) anogenital infection*02/08/2016 09/21/2019 Asthma with COPD with exacerbation (HCC) [J44.1]09/05/2016 Nocturnal muscle cramps [R25.2] 09/11/2016 09/21/2019 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] 10/10/2016 09/21/2019 Carpal tunnel syndrome, right [G56.01] 01/03/2017 09/21/2019 Chronic anxiety [F41.9] 06/17/2018 Lumbar radiculopathy [M54.16] 04/19/2020 Herpes [B00.9] 01/27/2021 Ex-smoker [Z87.891] 01/27/2021 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] 01/27/2021 History of 2019 novel kiarra (more content not included)...[facility]10-31-2024 Telephone encounter Note* Telephone Encounter - Mila Kidd MA - 07/02/2024 11:00 AM EDT Pt notified and verbalized understanding Mila Kidd MA [facility]10-31-2024 Miscellaneous Notes* Telephone Encounter - Mila Kidd MA - 07/02/2024 11:00 AM EDT Pt notified and verbalized understanding Mila Kidd MA * Telephone Encounter - Alex Brown APRN.CNP - 07/02/2024 9:26 AM EDT Please let patient know her mammogram is negative. Patient should continue with annual screenings. documented in [facility] encounter[facility] Telephone encounter Note * Telephone Encounter - Alex Brown APRN.CNP - 07/02/2024 9:26 AM EDT Please let patient know her mammogram is negative. Patient should continue with annual screenings. [facility]10-30-2024 History of Present illness Narrative* Destini Chavarria Mammo Tech - 07/01/2024 11:10 AM EDT Radiology Service Progress Note PATIENT NAME: Diony Ramirez DATE OF SERVICE: July 01, 2024 TIME: 11:20 AM PATIENT IDENTITY VERIFICATION COMPLETED USING TWO (2) IDENTIFIERS: Name and Date of confirmedby patient verbally. FALL SCREENING: Has the patient had 2 falls in the last year or 1 fall with injury or currently using an Ambulatory Assistive Device (Walker, Cane, Wheelchair, Crutches, etc.)? No PATIENT GENDER DATA: Female. status: : No status: NO. PATIENT RELEVANT IMPLANT DATA REVIEWED: Not Applicable PATIENT PRESENTS WITH AN IMPLANTABLE OR ATTACHED ELECTRIC STOP INSTALLER: No RADIOLOGY DEPARTMENT: Mammography PERIPHERAL IV DATA: Not applicable SIGNED BY: Bassam Gary July 01, 2024 11:20 AM documented in this encounterParkwood [facility]10-30-2024 NoteHNO ID: [id number] Author: DESTINI CHAVARRIA Mammo Tech Service: ? Author Type: Commercial Loan Coordinator Type: Progress Notes Filed: 07/01/2024 11:20 Note Text: Radiology Service Progress Note PATIENT NAME: Diony Ramirez DATE OF SERVICE: July 01, 2024 TIME: 11:20 AM PATIENT IDENTITY VERIFICATION COMPLETED USING TWO (2) IDENTIFIERS: Name and Date of confirmed by patient verbally. FALL SCREENING: Has the patient had 2 falls in the last year or 1 fall with injury or currently using an Ambulatory Assistive Device (Walker, Cane, Wheelchair, Crutches, etc.)? No PATIENT GENDER DATA: Female. status: : No status: NO. PATIENT RELEVANT IMPLANT DATA REVIEWED: Not Applicable PATIENT PRESENTS WITH AN IMPLANTABLE OR ATTACHED ELECTRIC STOP INSTALLER: No RADIOLOGY DEPARTMENT: Mammography PERIPHERAL IV DATA: Not applicable SIGNED BY: Bassam Gary July 01, 2024 11:20 [facility]10-17-2024 NoteHNO ID: [id number] Author: CHRISTINE PARKER RN Service: ? Author Type: Registered Nurse Type: Progress Notes Filed: 06/18/2024 09:52 Note Text: CD Telephonic Outreach Provider Action/FYI 2nd attempt Contacted for: Routine Telephonic Outreach Contact made with patient: No, left message. Christine Parker RN June 18, 2024 9:51 [facility]10-17-2024 History of Present illness Narrative* Christine Parker RN - 06/18/2024 9:36 AM EDT CD Telephonic Outreach Provider Action/FYI 2nd attempt Contacted for: Routine Telephonic Outreach Contact made with patient: No, left message. Christine Parker RN June 18, 2024 9:51 AM documented in this encounterParkwood Hospital10-17-2024 NotePatient Outreach (AMBG) DIONY RAMIREZ ([id number]) 1955 F Date Time Provider Department 06/18/24 CHRISTINE PARKER [facility] During your visit today, we recorded the following information about you: Christine Parker RN 06/18/2024 9:52 AM Signed [facility] Telephonic Outreach Provider Action/FYI 2nd attempt Contacted for: Routine Telephonic Outreach Contact made with patient: No, left message. Christine Parker RN June 18, 2024 9:51 AM Allergies As of Date: 06/18/2024 Noted Allergy Reaction FISH 06/23/2005 16 - Unknown HORSE/EQUINE CONTAINING PRODUCTS 08/30/2023 16 - Unknown LISINOPRIL 12/07/2015 3 - Cough SHELLFISH DERIVED 08/30/2023 16 - Unknown Date Reviewed: 06/07/2024 Reviewed by: Angelina Paul LPN - Fully Assessed Reason for Visit: CDM [Other] Cmt: Telephonic Outreach Prescriptions as of 06/18/2024 - Dextromethorphan-guaiFENesin (ROBITUSSIN COUGH-CHEST ESTEFANÍA DM) 5-100 mg/5 mL liqd Take 10 mL by mouth every 4 hours as needed. - phenazopyridine (PYRIDIUM) 100 mg tablet Take 1 tablet by mouth three times a day as needed. - acyclovir (ZOVIRAX) 400 mg tablet Take 1 tablet by mouth two times a day. - omeprazole (PRILOSEC) 40 mg capsule Take 1 capsule by mouth once daily. - traZODone (DESYREL) 150 mg tablet Take 1 tablet by mouth daily at bedtime. - amLODIPine (NORVASC) 2.5 mg tablet Take 1 tablet by mouth once daily. - hydrOXYzine HCl (ATARAX) 10 mg tablet Take 1 tablet by mouth daily at bedtime. - FOLIC ACID ORAL Take by mouth as directed. - ZINC ORAL Take by mouth as directed. - SYMBICORT 160-4.5 mcg/actuation inhaler - BIOTIN ORAL Take 5,000 mcg by mouth. - ascorbic acid/collagen hydr (COLLAGEN PLUS VITAMIN C ORAL) Take 1,000 mg by mouth twice daily. - albuterol HFA (PROAIR HFA) 90 mcg/actuation inhaler Inhale 2 Puffs as instructed every 4 hours as needed for Wheezing/Shortness of Breath. - Melatonin 5 mg cap 5 mg by mouth taken 2 hours prior to bedtime - Ascorbic Acid (VITAMIN C) 1,000 mg TbER Take by mouth. - Calcium Carb-Cholecalciferol (CALCIUM 600 WITH VITAMIN D3) 600-200 mg-unit ORAL Tab Take one(1) tablet two(2) times daily. Problem List As Of Date 06/18/2024 Noted Resolved Chronic interstitial cystitis [N30.10] 04/08/2006 Adjustment disorder with depressed mood [F43.21]05/20/2006 09/21/2019 Insomnia, unspecified [G47.00] 05/20/2006 Generalized hyperhidrosis [R61] 05/20/2006 Contact dermatitis and other eczema, due to uns*02/05/2008 12/07/2015 Cervicalgia [M54.2] 07/26/2008 09/21/2019 Pain in joint, shoulder region [M25.519] 07/26/2008 03/18/2017 Manic disorder, recurrent episode, moderate (HC*08/18/2008 Contact dermatitis and other eczema due to othe*02/03/2009 12/07/2015 Disorders of bursae and tendons in shoulder reg*02/26/2009 12/07/2015 Lumbar spinal stenosis [M48.061] 08/05/2009 Climacteric [N95.1] 01/13/2010 08/07/2016 Lung mass [R91.8] 09/07/2011 09/21/2019 Postmenopausal atrophic vaginitis [N95.2] 05/01/2012 Heavy alcohol use [F10.90] 01/14/2013 Epidural abscess [G06.2] 09/16/2013 04/28/2014 Chest pain, atypical [R07.89] 12/15/2013 04/28/2014 SOB (shortness of breath) [R06.02] 12/15/2013 04/28/2014 Degenerative arthritis of lumbar spine [M47.816]05/06/2014 Arnold-Chiari malformation (HCC) [Q07.00] 09/22/2014 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] 09/22/2014 Cervical spondylosis without myelopathy [M47.81*02/21/2015 Essential hypertension, benign [I10] 02/21/2015 Emphysema of lung (HCC) [J43.9] 03/18/2015 Osteoporosis [M81.0] 09/01/2015 Overactive bladder [N32.81] 09/01/2015 HSV (herpes simplex virus) anogenital infection*02/08/2016 09/21/2019 Asthma with COPD with exacerbation (HCC) [J44.1]09/05/2016 Nocturnal muscle cramps [R25.2] 09/11/2016 09/21/2019 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] 10/10/2016 09/21/2019 Carpal tunnel syndrome, right [G56.01] 01/03/2017 09/21/2019 Chronic anxiety [F41.9] 06/17/2018 Lumbar radiculopathy [M54.16] 04/19/2020 Herpes [B00.9] 01/27/2021 Ex-smoker [Z87.891] 01/27/2021 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] 01/27/2021 History of 2019 novel coronavirus disease (COVI*01/27/2021 Multiple thyroid nodules [E04.2] 01/27/2021 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] 01/27/2021 Medicare annual wellness visit, subsequent [Z00*01/27/2021 Medication management [Z79.899] 01/27/2021 Elevated blood sugar [R73.9] 01/27/2021 Abnormal toxicological findings [R89.2] 02/01/2021 Lung nodules [R91.8] 05/30/2021 GERD without esophagitis [K21.9] 09/12/2022 Living will on file at physician's office [Z78.*09/27/2022 Advance directive discussed with patient [Z71.8*09/27/2022 Ectatic thoracic aorta (HCC) [I77.810] 12/04/2022 Chronic bilateral low back pain with sciatica [*07/15/2023 Encounter for screening mammogram for breast ca*06/09/2024 Encounter Status:Closed by CHRISTINE PARKER RN on 06/18/24[facility]10-16-2024 NoteHNO ID: [id number] Author: CHRISTINE PARKER RN Service: ? Author Type: Registered Nurse Type: Progress Notes Filed: 06/17/2024 14:18 Note Text: [facility] Telephonic Outreach Provider Action/ 1st attempt Contacted for: Routine Telephonic Outreach Contact made with patient: No, left message. Christine Parker RN June 17, 2024 2:18 [facility]10-16-2024 History of Present illness Narrative* Christine Parker RN - 06/17/2024 2:12 PM EDT [facility] Telephonic Outreach Provider Action/FY 1st attempt Contacted for: Routine Telephonic Outreach Contact made with patient: No, left message. Christine Parker RN June 17, 2024 2:18 PM documented in this encounterParkwood Hospital10-16-2024 NotePatient Outreach (AMBCMG) DIONY RAMIREZ ([id number]) 1955 F Date Time Provider Department 06/17/24 CHRISTINE PARKER [facility] [place] During your visit today, we recorded the following information about you: Christine Parker RN 06/17/2024 2:18 PM Signed CDM Telephonic Outreach Provider Action/ 1st attempt Contacted for: Routine Telephonic Outreach Contact made with patient: No, left message. Christine Parker RN June 17, 2024 2:18 PM Allergies As of Date: 06/17/2024 Noted Allergy Reaction FISH 06/23/2005 16 - Unknown HORSE/EQUINE CONTAINING PRODUCTS 08/30/2023 16 - Unknown LISINOPRIL 12/07/2015 3 - Cough SHELLFISH DERIVED 08/30/2023 16 - Unknown Date Reviewed: 06/07/2024 Reviewed by: Angelina Paul LPN - Fully Assessed Reason for Visit: CDM [Other] Cmt: Telephonic Outreach Prescriptions as of 06/17/2024 - Dextromethorphan-guaiFENesin (ROBITUSSIN COUGH-CHEST ESTEFANÍA DM) 5-100 mg/5 mL liqd Take 10 mL by mouth every 4 hours as needed. - phenazopyridine (PYRIDIUM) 100 mg tablet Take 1 tablet by mouth three times a day as needed. - acyclovir (ZOVIRAX) 400 mg tablet Take 1 tablet by mouth two times a day. - omeprazole (PRILOSEC) 40 mg capsule Take 1 capsule by mouth once daily. - traZODone (DESYREL) 150 mg tablet Take 1 tablet by mouth daily at bedtime. - amLODIPine (NORVASC) 2.5 mg tablet Take 1 tablet by mouth once daily. - hydrOXYzine HCl (ATARAX) 10 mg tablet Take 1 tablet by mouth daily at bedtime. - FOLIC ACID ORAL Take by mouth as directed. - ZINC ORAL Take by mouth as directed. - SYMBICORT 160-4.5 mcg/actuation inhaler - BIOTIN ORAL Take 5,000 mcg by mouth. - ascorbic acid/collagen hydr (COLLAGEN PLUS VITAMIN C ORAL) Take 1,000 mg by mouth twice daily. - albuterol HFA (PROAIR HFA) 90 mcg/actuation inhaler Inhale 2 Puffs as instructed every 4 hours as needed for Wheezing/Shortness of Breath. - Melatonin 5 mg cap 5 mg by mouth taken 2 hours prior to bedtime - Ascorbic Acid (VITAMIN C) 1,000 mg TbER Take by mouth. - Calcium Carb-Cholecalciferol (CALCIUM 600 WITH VITAMIN D3) 600-200 mg-unit ORAL Tab Take one(1) tablet two(2) times daily. Problem List As Of Date 06/17/2024 Noted Resolved Chronic interstitial cystitis [N30.10] 04/08/2006 Adjustment disorder with depressed mood [F43.21]05/20/2006 09/21/2019 Insomnia, unspecified [G47.00] 05/20/2006 Generalized hyperhidrosis [R61] 05/20/2006 Contact dermatitis and other eczema, due to uns*02/05/2008 12/07/2015 Cervicalgia [M54.2] 07/26/2008 09/21/2019 Pain in joint, shoulder region [M25.519] 07/26/2008 03/18/2017 Manic disorder, recurrent episode, moderate (HC*08/18/2008 Contact dermatitis and other eczema due to othe*02/03/2009 12/07/2015 Disorders of bursae and tendons in shoulder reg*02/26/2009 12/07/2015 Lumbar spinal stenosis [M48.061] 08/05/2009 Climacteric [N95.1] 01/13/2010 08/07/2016 Lung mass [R91.8] 09/07/2011 09/21/2019 Postmenopausal atrophic vaginitis [N95.2] 05/01/2012 Heavy alcohol use [F10.90] 01/14/2013 Epidural abscess [G06.2] 09/16/2013 04/28/2014 Chest pain, atypical [R07.89] 12/15/2013 04/28/2014 SOB (shortness of breath) [R06.02] 12/15/2013 04/28/2014 Degenerative arthritis of lumbar spine [M47.816]05/06/2014 Arnold-Chiari malformation (HCC) [Q07.00] 09/22/2014 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] 09/22/2014 Cervical spondylosis without myelopathy [M47.81*02/21/2015 Essential hypertension, benign [I10] 02/21/2015 Emphysema of lung (HCC) [J43.9] 03/18/2015 Osteoporosis [M81.0] 09/01/2015 Overactive bladder [N32.81] 09/01/2015 HSV (herpes simplex virus) anogenital infection*02/08/2016 09/21/2019 Asthma with COPD with exacerbation (HCC) [J44.1]09/05/2016 Nocturnal muscle cramps [R25.2] 09/11/2016 09/21/2019 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] 10/10/2016 09/21/2019 Carpal tunnel syndrome, right [G56.01] 01/03/2017 09/21/2019 Chronic anxiety [F41.9] 06/17/2018 Lumbar radiculopathy [M54.16] 04/19/2020 Herpes [B00.9] 01/27/2021 Ex-smoker [Z87.891] 01/27/2021 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] 01/27/2021 History of 2019 novel coronavirus disease (COVI*01/27/2021 Multiple thyroid nodules [E04.2] 01/27/2021 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] 01/27/2021 Medicare annual wellness visit, subsequent [Z00*01/27/2021 Medication management [Z79.899] 01/27/2021 Elevated blood sugar [R73.9] 01/27/2021 Abnormal toxicological findings [R89.2] 02/01/2021 Lung nodules [R91.8] 05/30/2021 GERD without esophagitis [K21.9] 09/12/2022 Living will on file at physician's office [Z78.*09/27/2022 Advance directive discussed with patient [Z71.8*09/27/2022 Ectatic thoracic aorta (HCC) [I77.810] 12/04/2022 Chronic bilateral low back pain with sciatica [*07/15/2023 Encounter for screening mammogram for breast ca*06/09/2024 Encounter Status:Closed by CHRISTINE PARKER RN on 06/17/24[facility]10-09-2024 Telephone encounter Note* Telephone Encounter - Neyda Mccartney MA - 06/10/2024 9:47 AM EDT Patient notified. Neyda Mccartney MA\ [facility]10-09-2024 Miscellaneous Notes* Telephone Encounter - Neyda Mccartney MA - 06/10/2024 9:47 AM EDT Patient notified. Neyda Mccartney MA\ * Telephone Encounter - Shanna Newton APRN.CNP - 06/10/2024 9:37 AM EDT Let patient know that I called in a cough syrup for her. I apologize that it was not called in yesterday. * Telephone Encounter - Good Silva RN - 06/10/2024 8:40 AM EDT Patient reports she was seen in [facility] yesterday, and prescribed AB and cough medicine. Reports when she went to the pharmacy, they had the AB Rx, but not the cough medicine Rx. Patient asking if provider was going to send cough medicine Rx. Reports the cough keeps her awake at night. Reports she has COPD and takes BP medication. Please advise patient. documented in this encounterPark[facility]10-[facility] Telephone encounter Note * Telephone Encounter - Shanna Newton APRN.LUIS FELIPE - 06/10/2024 9:37 AM EDT Let patient know that I called in a cough syrup for her. I apologize that it was not called in yesterday. [facility]10-09-2024 Telephone encounter Note* Telephone Encounter - Good Silva RN - 06/10/2024 8:40 AM EDT Patient reports she was seen in [facility] yesterday, and prescribed AB and cough medicine. Reports when she went to the pharmacy, they had the AB Rx, but not the cough medicine Rx. Patient asking if provider was going to send cough medicine Rx. Reports the cough keeps her awake at night. Reports she has COPD and takes BP medication. Please advise patient. [facility]2024 NoteHNO ID: [id number] Author: SHANNA NEWTON APRN.LUIS FELIPE Service: ? Author Type: Nurse Practitioner Type: Progress Notes Filed: 06/07/2024 11:24 Note Text: CC: Patient presents with: Cough: Chest congestion, heaviness in chest, headache, SOB, sore throat x 3 days HPI: Diony Ramirez is a 69 year old female who presents to the office with complaint of chest congestion and cough, nonproductive for a few days. Symptoms are staying the same. Associated symptoms includes dyspnea. Denies nausea, vomiting , and diarrhea. Treatments tried include nothing so far. with no relief of symptoms. Sick contacts: unknown. History of asthma, frequent episodes of bronchitis, chronic bronchitis, bronchiectasis or COPD: No Smoker: No Seasonal/environmental allergies: No The ROS is otherwise negative. The patient's pmh, medications, allergies, and past visits are reviewed. PHYSICAL EXAM: BP 154/84 Pulse 99 Temp 37.1 ?C (98.8 ?F) Resp 22 Wt 39.5 kg (87 lb 1.3 oz) LMP 03/23/2007 SpO2 95% BMI 18.84 kg/m? General appearance: alert, cooperative, pleasant, in no acute distress Head: Normocephalic Eyes: EOM's intact, conjunctiva pink and moist, no icterus, sclera white, non-injected Ears: Right ear: External ear/canal- Normal, TM - clear with good landmarks. Left ear: External ear/canal- Normal, TM - clear with good landmarks Oropharynx:moist without lesions, No erythema, exudates or tonsillar hypertrophy. Heart: Negative. RRR without obvious murmur, gallop, or rubs. No ectopy. Lungs: wheezing diffusely PAST MEDICAL HISTORY Diagnosis Date Abnormal toxicological findings 02/01/2021 Tox screen 01/27/2021 showed no benzos and pos for oxycodone which patient was not on. Patient informed of no further controlled med refills. 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 Chronic anxiety 06/17/2018 Degenerative arthritis of lumbar spine 05/06/2014 Ectatic thoracic aorta ([facility]) 12/04/2022 CT done 12/2022 Elevated blood sugar 01/27/2021 Emphysema of lung ([facility]) 03/18/2015 Essential hypertension, benign 02/21/2015 Ex-smoker 01/27/2021 Started around 89 and quit 2005. Smoked about 1.5 PPD GERD without esophagitis 09/12/2022 Herpes 01/27/2021 History of 2019 novel coronavirus disease (COVID-19) 01/27/202106/2020 History of small bowel obstruction HSV (herpes simplex virus) anogenital infection 02/08/2016 Living will on file at physician's office 09/27/2022 DPA: Reina Lint (aunt) Lung mass 09/07/2011 Lung nodules 05/30/[address] Suleman Gustafson Medicare annual wellness visit, subsequent 01/27/2021 Medicare Part B: NA Last done: Multiple thyroid nodules 01/27/[address] Vigil and f/u was stable. Told no need for further f/u. 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 Takes mid morning. Substance agreement signed and Tox screen done 12/2020. 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 COLONOSCOPY FLX DX W/COLLJ SPEC WHEN PFRMD 08/19/2006 Repeat in COLONOSCOPY FLX DX W/COLLJ SPEC WHEN PFRMD 06/27/2016 Colonoscopy CRANIOPLASTY SKULL DEF/REPAIR/ BRAIN 09/14/2014 See scanned documents - status post ESOPHAGOGASTRODUODENOSCOPY TRANSORAL DIAGNOSTIC 06/27/2016 EGD ESOPHAGOGASTRODUODENOSCOPY TRANSORAL DIAGNOSTIC 06/30/2018 EGD IANDD ABSCESS CMPLX/MULT 07/2013 Epidural abscess- MSSA LIG/TRNSXJ FLP TUBE ABDL/VAG APPR UNI/BI Tubal ligation PAST SURGICAL HISTORY OF spinal surgery PAST SURGICAL HISTORY OF retinal detachment OD, (2 tears) PAST SURGICAL HISTORY OF 2012 back surgery STRESS TEST NUCLEAR 05/23/2021 negative ALLERGIES Fish, Horse/Equine Containing Products, Lisinopril, and Shellfish Derived MEDICATIONS nitrofurantoin monohydrate and macrocrystal (MACROBID) 100 mg capsule Take 1 capsule by mouth two times a day with meals for 7 days. phenazopyridine (PYRIDIUM) 100 mg tablet Take 1 tablet by mouth three times a day as needed. acyclovir (ZOVIRAX) 400 mg tablet Take 1 tablet by mouth two times a day. omeprazole (PRILOSEC) 40 mg capsule Take 1 capsule by mouth once daily. traZODone (DESYREL) 150 mg tablet Take 1 tablet by mouth daily at bedtime. amLODIPine (NORVASC) 2.5 mg tablet Take 1 tablet by mouth once daily. hydrOXYzine HCl (ATARAX) 10 mg tablet Take 1 tab (more content not included)... [facility]10-06-20[facility] History of Present illness Narrative* JohnShanna APRN.[facility] - 06/07/2024 11:20 AM EDT CC: Patient presents with: Cough: Chest congestion, heaviness in chest, headache, SOB, sore throat x 3 days HPI: Diony Ramirez is a 69 year old female who presents to the office with complaint of chest congestion and cough, nonproductive for a few days. Symptoms are staying the same. Associated symptoms includes dyspnea. Denies nausea, vomiting , and diarrhea. Treatments tried include nothing so far. with no relief of symptoms. Sick contacts: unknown. History of asthma, frequent episodes of bronchitis, chronic bronchitis, bronchiectasis or COPD: No Smoker: No Seasonal/environmental allergies: No The ROS is otherwise negative. The patient's pmh, medications, allergies, and past visits are reviewed. PHYSICAL EXAM: BP 154/84 Pulse 99 Temp 37.1 C (98.8 F) Resp 22 Wt 39.5 kg (87 lb 1.3 oz) LMP 03/23/2007 SpO2 95% BMI 18.84 kg/m General appearance: alert, cooperative, pleasant, in no acute distress Head: Normocephalic Eyes: EOM's intact, conjunctiva pink and moist, no icterus, sclera white, non-injected Ears: Right ear: External ear/canal- Normal, TM - clear with good landmarks. Left ear: External ear/canal- Normal, TM - clear with good landmarks Oropharynx:moist without lesions, No erythema, exudates or tonsillar hypertrophy. Heart: Negative. RRR without obvious murmur, gallop, or rubs. No ectopy. Lungs: wheezing diffusely PAST MEDICAL HISTORY Diagnosis Date Abnormal toxicological findings 02/01/2021 Tox screen 01/27/2021 showed no benzos and pos for oxycodone which patient was not on. Patient informed of no further controlled med refills. 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 Chronic anxiety 06/17/2018 Degenerative arthritis of lumbar spine 05/06/2014 Ectatic thoracic aorta (HCC) 12/04/2022 CT done 12/2022 Elevated blood sugar 01/27/2021 Emphysema of lung (HCC) 03/18/2015 Essential hypertension, benign 02/21/2015 Ex-smoker 01/27/2021 Started around 89 and quit 2005. Smoked about 1.5 PPD GERD without esophagitis 09/12/2022 Herpes 01/27/2021 History of 2019 novel coronavirus disease (COVID-19) 01/27/202106/2020 History of small bowel obstruction HSV (herpes simplex virus) anogenital infection 02/08/2016 Living will on file at physician's office 09/27/2022 DPA: Reina Denise (aunt) Lung mass 09/07/2011 Lung nodules 05/30/[address] Suleman Gustafson Medicare annual wellness visit, subsequent 01/27/2021 Medicare Part B: NA Last done: Multiple thyroid nodules 01/27/[address] Vigil and f/u was stable. Told no need for further f/u. 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 Takes mid morning. Substance agreement signed and Tox screen done 12/2020. 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 COLONOSCOPY FLX DX W/COLLJ SPEC WHEN PFRMD 08/19/2006 Repeat in COLONOSCOPY FLX DX W/COLLJ SPEC WHEN PFRMD 06/27/2016 Colonoscopy CRANIOPLASTY SKULL DEF/REPAIR/ BRAIN 09/14/2014 See scanned documents - status post ESOPHAGOGASTRODUODENOSCOPY TRANSORAL DIAGNOSTIC 06/27/2016 EGD ESOPHAGOGASTRODUODENOSCOPY TRANSORAL DIAGNOSTIC 06/30/2018 EGD I&D ABSCESS CMPLX/MULT 07/2013 Epidural abscess- MSSA LIG/TRNSXJ FLP TUBE ABDL/VAG APPR UNI/BI Tubal ligation PAST SURGICAL HISTORY OF spinal surgery PAST SURGICAL HISTORY OF 2307 retinal detachment OD, (2 tears) PAST SURGICAL HISTORY OF 2013 back surgery STRESS TEST NUCLEAR 05/23/2021 negative ALLERGIES Fish, Horse/Equine Containing Products, Lisinopril, and Shellfish Derived MEDICATIONS nitrofurantoin monohydrate and macrocrystal (MACROBID) 100 mg capsule Take 1 capsule by mouth two times a day with meals for 7 days. phenazopyridine (PYRIDIUM) 100 mg tablet Take 1 tablet by mouth three times a day as needed. acyclovir (ZOVIRAX) 400 mg tablet Take 1 tablet by mouth two times a day. omeprazole (PRILOSEC) 40 mg capsule Take 1 capsule by mouth once daily. traZODone (DESYREL) 150 mg tablet Take 1 tablet by mouth daily at bedtime. amLODIPine (NORVASC) 2.5 mg tablet Take 1 tablet by mouth once daily. hydrOXYzine HCl (ATARAX) 10 mg tablet Take 1 tablet by mouth daily at bedtime. FOLIC ACID ORAL Take by mouth as directed. ZINC ORAL Take by mouth as directed. SYMBICORT 160-4.5 mcg/actuation inhaler BIOTIN ORAL Take 5,000 mcg by mouth. ascorbic acid/collagen hydr (COLLAGEN PLUS VITAMIN C ORAL) Take 1,000 mg by mouth twice daily. albuterol HFA (PROAIR HFA) 90 mcg/actuation inhaler Inhale 2 Puffs as instructed every 4 hours as needed for Wheezing/Shortness of Breath. Melatonin 5 mg cap 5 mg by mouth taken 2 hours prior to bedtime (Patient taking differently: 10 mg.5 mg by mouth taken 2 hours prior to bedtime) Ascorbic Acid (VITAMIN C) 1,000 mg TbER Take by mouth. Calcium Carb-Cholecalciferol (CALCIUM 600 WITH VITAMIN D3) 600-200 mg-unit ORAL Tab Take one(1) tablet two(2) times daily. azithromycin (ZITHROMAX) 250 mg tablet Take 2 tablets by mouth once daily for 1 day, THEN 1 tablet once daily for 4 days. FAMILY HISTORY Problem Relation Age of Onset Hypertension Mother other (cerebral aneurysm) Mother Colon Polyps Father Hypertension Father COPD Father Cancer Father Bladder Cancer other (Past medical history) Father abdominal aneurysm/bladder cancer other (aortic aneurysm) Father Aneurysm Paternal Grandfather Social History Tobacco Use Smoking status: Former Current packs/day: 0.00 Average packs/day: 1.5 packs/day for 15.0 years (22.5 ttl pk-yrs) Types: Cigarettes Start date: 07/31/1990 Quit date: 07/31/2005 Years since quittin.8 Smokeless tobacco: Never Vaping Use Vaping status: Never Used Substance Use Topics Alcohol use: Yes Alcohol/week: 10.0 - 15.0 standard drinks of alcohol Types: 10 - 15 Cans of Beer (12oz) per week Comment: 5-8 beers daily Drug use: No ASSESSMENT/PLAN: 1. Respiratory infection - ICD9: 519.8, ICD10: J98.8 - AZITHROMYCIN 250 MG TABLET Prescription instructions reviewed with patient as applicable. Potential red flag symptoms discussed with the patient. Reviewed appropriate action plan to take if red flag symptoms occur. Patient agreeable to treatment plan. Shanna Newton APRN.LUIS FELIPE [facility] Telephone encounter Note * Telephone Encounter - Angelina Paul LPN - 06/05/2024 1:12 PM EDT Pt Is currently with her PCP for urine issue. Angelina Paul LPN [facility]10-04-2024 Miscellaneous Notes* Telephone Encounter - Angelina Paul LPN - 06/05/2024 1:12 PM EDT Pt Is currently with her PCP for urine issue. Angelina Paul LPN * Telephone Encounter - Shanna Newton APRN.CNP - 06/05/2024 11:59 AM EDT Call patient let her know that she only had 10-50,000 of mixed microbiota. This is not a significant bacteria for urine culture. Patient should either follow-up with primary care or be retested for another urine. * Telephone Encounter - Joana Au RN - 06/05/2024 11:48 AM EDT Patient requesting Express Care to advise on her recent urine culture results, when able. Reports her urinary sx's remain the same as OV on Saturday. Please advise patient at [phone]. Thank you. documented in this encounterPark[facility]10-04-2024 NoteHNO ID: [id number] Author: RITO CAMP MD Service: ? Author Type: Physician Type: Progress Notes Filed: 06/05/2024 13:38 Note Text: Chief Complaint No chief complaint on file. HPI Diony Ramirez is a 69 year old female who presents here today for Dysuria. . Patient is still having frequency; burning and a lot of pressure. Even after patient urinates she still has the pressure. Symptoms started on Saturday. No fevers, chills, nausea, vomiting. Not sure if the back pain is in her flanks. Has not seen any hematuria. Gets a sensation like she has to go shortly after going to urinate. Past medical history, appointments, medications, allergies reviewed. Previous Medical History PAST MEDICAL HISTORY Diagnosis Date Abnormal toxicological findings 02/01/2021 Tox screen 01/27/2021 showed no benzos and pos for oxycodone which patient was not on. Patient informed of no further controlled med refills. 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 Chronic anxiety 06/17/2018 Degenerative arthritis of lumbar spine 05/06/2014 Ectatic thoracic aorta (HCC) 12/04/2022 CT done 12/2022 Elevated blood sugar 01/27/2021 Emphysema of lung (HCC) 03/18/2015 Essential hypertension, benign 02/21/2015 Ex-smoker 01/27/2021 Started around 89 and quit 2005. Smoked about 1.5 PPD GERD without esophagitis 09/12/2022 Herpes 01/27/2021 History of 2019 novel coronavirus disease (COVID-19) 01/27/202106/2020 History of small bowel obstruction HSV (herpes simplex virus) anogenital infection 02/08/2016 Living will on file at physician's office 09/27/2022 DPA: Reina Denise (aunt) Lung mass 09/07/2011 Lung nodules 05/30/[address] Suleman Gustafson Medicare annual wellness visit, subsequent 01/27/2021 Medicare Part B: NA Last done: Multiple thyroid nodules 01/27/[address] Vigil and f/u was stable. Told no need for further f/u. 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 Takes mid morning. Substance agreement signed and Tox screen done 12/2020. 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 COLONOSCOPY FLX DX W/COLLJ SPEC WHEN PFRMD 08/19/2006 Repeat in -2015 COLONOSCOPY FLX DX W/COLLJ SPEC WHEN PFRMD 06/27/2016 Colonoscopy CRANIOPLASTY SKULL DEF/REPAIR/ BRAIN 09/14/2014 See scanned documents - status post ESOPHAGOGASTRODUODENOSCOPY TRANSORAL DIAGNOSTIC 06/27/2016 EGD ESOPHAGOGASTRODUODENOSCOPY TRANSORAL DIAGNOSTIC 06/30/2018 EGD IANDD ABSCESS CMPLX/MULT 07/2013 Epidural abscess- MSSA LIG/TRNSXJ FLP TUBE ABDL/VAG APPR UNI/BI Tubal ligation PAST SURGICAL HISTORY OF spinal surgery PAST SURGICAL HISTORY OF retinal detachment OD, (2 tears) PAST SURGICAL HISTORY OF 2012 back surgery STRESS TEST NUCLEAR 05/23/2021 negative Family History FAMILY HISTORY Problem Relation Age of Onset Hypertension Mother other (cerebral aneurysm) Mother Colon Polyps Father Hypertension Father COPD Father Cancer Father Bladder Cancer other (Past medical history) Father abdominal aneurysm/bladder cancer other (aortic aneurysm) Father Aneurysm Paternal Grandfather Patient Allergies ALLERGIES Allergen Reactions Fish Unknown Horse/Equine Contai* Unknown Lisinopril Cough Shellfish Derived Unknown Current Medications Current Outpatient Medications on File Prior to Visit Medication Sig acyclovir (ZOVIRAX) 400 mg tablet Take 1 tablet by mouth two times a day. penicillin V potassium 500 mg tablet Take 500 mg by mouth. omeprazole (PRILOSEC) 40 mg capsule Take 1 capsule by mouth once daily. traZODone (DESYREL) 150 mg tablet Take 1 tablet by mouth daily at bedtime. amLODIPine (NORVASC) 2.5 mg tablet Take 1 tablet by mouth once daily. hydrOXYzine HCl (ATARAX) 10 mg tablet Take 1 tablet by mouth daily at bedtime. FOLIC ACID ORAL Take by mouth as directed. cetirizine (ZYRTEC) 10 mg tablet Take 1 tablet by mouth once daily. (Patient taking differently: Take 10 mg by mouth as needed.) ZINC ORAL Take by mouth as directed. SYMBICORT 160-4.5 mcg/actuation inhaler BIOTIN ORAL Take 5,000 mcg by mouth. ascorbic acid/collagen hydr (COLLAGEN PLUS VITAMIN C ORAL) Take 1,000 mg by mouth twice daily. albuterol HFA (PROAIR HFA) 90 mcg/actuation inhaler Inhale 2 Puffs as instructed e (more content not included)...[facility]10[facility] History of Present illness Narrative* Rito Camp MD - 06/05/2024 1:06 PM EDT Chief Complaint No chief complaint on file. HPI Doiny Ramirez is a 69 year old female who presents here today for Dysuria. . Patient is still having frequency; burning and a lot of pressure. Even after patient urinates she still has the pressure. Symptoms started on Saturday. No fevers, chills, nausea, vomiting. Not sure if the back pain is in her flanks. Has not seen any hematuria. Gets a sensation like she has to go shortly after going to urinate. Past medical history, appointments, medications, allergies reviewed. Previous Medical History PAST MEDICAL HISTORY Diagnosis Date Abnormal toxicological findings 02/01/2021 Tox screen 01/27/2021 showed no benzos and pos for oxycodone which patient was not on. Patient informed of no further controlled med refills. 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 Chronic anxiety 06/17/2018 Degenerative arthritis of lumbar spine 05/06/2014 Ectatic thoracic aorta (HCC) 12/04/2022 CT done 12/2022 Elevated blood sugar 01/27/2021 Emphysema of lung ([facility]) 03/18/2015 Essential hypertension, benign 02/21/2015 Ex-smoker 01/27/2021 Started around 89 and quit 2004. Smoked about 1.5 PPD GERD without esophagitis 09/12/2022 Herpes 01/27/2021 History of 2019 novel coronavirus disease (COVID-19) 01/27/202106/2020 History of small bowel obstruction HSV (herpes simplex virus) anogenital infection 02/08/2016 Living will on file at physician's office 09/27/2022 DPA: Reina Denise (aunt) Lung mass 09/07/2011 Lung nodules 05/30/[address] Suleman Gustafson Medicare annual wellness visit, subsequent 01/27/2021 Medicare Part B: NA Last done: Multiple thyroid nodules 01/27/[address] Vigil and f/u was stable. Told no need for further f/u. 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 Takes mid morning. Substance agreement signed and Tox screen done 12/2020. 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 COLONOSCOPY FLX DX W/COLLJ SPEC WHEN PFRMD 08/19/2006 Repeat in COLONOSCOPY FLX DX W/COLLJ SPEC WHEN PFRMD 06/27/2016 Colonoscopy CRANIOPLASTY SKULL DEF/REPAIR/ BRAIN 09/14/2014 See scanned documents - status post ESOPHAGOGASTRODUODENOSCOPY TRANSORAL DIAGNOSTIC 06/27/2016 EGD ESOPHAGOGASTRODUODENOSCOPY TRANSORAL DIAGNOSTIC 06/30/2018 EGD I&D ABSCESS CMPLX/MULT 07/2013 Epidural abscess- MSSA LIG/TRNSXJ FLP TUBE ABDL/VAG APPR UNI/BI Tubal ligation PAST SURGICAL HISTORY OF spinal surgery PAST SURGICAL HISTORY OF retinal detachment OD, (2 tears) PAST SURGICAL HISTORY OF 2012 back surgery STRESS TEST NUCLEAR 05/23/2021 negative Family History FAMILY HISTORY Problem Relation Age of Onset Hypertension Mother other (cerebral aneurysm) Mother Colon Polyps Father Hypertension Father COPD Father Cancer Father Bladder Cancer other (Past medical history) Father abdominal aneurysm/bladder cancer other (aortic aneurysm) Father Aneurysm Paternal Grandfather Patient Allergies ALLERGIES Allergen Reactions Fish Unknown Horse/Equine Contai* Unknown Lisinopril Cough Shellfish Derived Unknown Current Medications Current Outpatient Medications on File Prior to Visit Medication Sig acyclovir (ZOVIRAX) 400 mg tablet Take 1 tablet by mouth two times a day. penicillin V potassium 500 mg tablet Take 500 mg by mouth. omeprazole (PRILOSEC) 40 mg capsule Take 1 capsule by mouth once daily. traZODone (DESYREL) 150 mg tablet Take 1 tablet by mouth daily at bedtime. amLODIPine (NORVASC) 2.5 mg tablet Take 1 tablet by mouth once daily. hydrOXYzine HCl (ATARAX) 10 mg tablet Take 1 tablet by mouth daily at bedtime. FOLIC ACID ORAL Take by mouth as directed. cetirizine (ZYRTEC) 10 mg tablet Take 1 tablet by mouth once daily. (Patient taking differently: Take 10 mg by mouth as needed.) ZINC ORAL Take by mouth as directed. SYMBICORT 160-4.5 mcg/actuation inhaler BIOTIN ORAL Take 5,000 mcg by mouth. ascorbic acid/collagen hydr (COLLAGEN PLUS VITAMIN C ORAL) Take 1,000 mg by mouth twice daily. albuterol HFA (PROAIR HFA) 90 mcg/actuation inhaler Inhale 2 Puffs as instructed every 4 hours as needed for Wheezing/Shortness of Breath. Melatonin 5 mg cap 5 mg by mouth taken 2 hours prior to bedtime (Patient taking differently: 10 mg.5 mg by mouth taken 2 hours prior to bedtime) Ascorbic Acid (VITAMIN C) 1,000 mg TbER Take by mouth. Calcium Carb-Cholecalciferol (CALCIUM 600 WITH VITAMIN D3) 600-200 mg-unit ORAL Tab Take one(1) tablet two(2) times daily. No current facility-administered medications on file prior to visit. Social History Social History Tobacco Use Smoking status: Former Current packs/day: 0.00 Average packs/day: 1.5 packs/day for 15.0 years (22.5 ttl pk-yrs) Types: Cigarettes Start date: 07/31/1990 Quit date: 07/31/2005 Years since quittin.8 Smokeless tobacco: Never Vaping Use Vaping status: Never Used Substance Use Topics Alcohol use: Yes Alcohol/week: 10.0 - 15.0 standard drinks of alcohol Types: 10 - 15 Cans of Beer (12oz) per week Comment: 5-8 beers daily Drug use: No Review of Symptoms REVIEW OF SYSTEMS See HPI EXAM: BP 132/86 (BP Site: Right Arm, BP Position: Sitting, BP Cuff Size: Regular Adult) Pulse 82 Resp16 Wt 39.9 kg (88 lb) LMP 03/23/2007 BMI 19.04 kg/m General Appearance: Well appearing, alert, in no acute distress, well-hydrated, well nourished.. Back:no flank pain Lungs: Lungs clear to auscultation. No wheezing, rhonchi, rales.. Heart: RRR without murmur, gallop, or rubs. No ectopy. Abdomen: Normal abdominal exam, Abdomen soft, non-tender. Bowel sounds normal. No masses, organomegaly. Health Maintenance List Depression Screening Never done BP Controlled (<130/80) due on 11/20/2023 Influenza Vaccine(1) due on 05/03/2024 Mammogram Screening due on 06/11/2024 Bone Density Screening due on 11/13/2024 Annual PCP Team Chronic Disease Visit due on 04/14/2025 Colorectal Cancer Screening due on 06/27/2026 Diabetes Screening due on 09/23/2026 Lipid Screening due on 09/23/2028 DTaP,Tdap,Td Vaccine(3 - Td or Tdap) due on 12/18/2028 Advance Directive Discussion Completed RSV Vaccine Completed Hepatitis C Screening Completed Shingrix Vaccine Completed Pneumococcal Vaccine: 65+ Completed Alpha-1 Antitrypsin Deficiency Screening Discontinued Spirometry Discontinued Cervical Cancer Screening Discontinued Covid-19 Vaccine Discontinued Data reviewed Latest Ref Rng 06/05/2024 GLUCOSE UA (POCT) Negative mg/dL Negative BILIRUBIN UA (POCT) Negative Negative KETONE UA (POCT) Negative mg/dL Negative SPECIFIC GRAVITY UA (POCT) 1.005 - 1.030 <=1.005 ! HEMOGLOBIN/BLOOD UA (POCT) Negative Small ! PH UA (POCT) 4.5 - 8.0 6.0 PROTEIN UA (POCT) Negative mg/dL Negative UROBILINOGEN UA (POCT) Normal E.U./dL 0.2 NITRITE UA (POCT) Negative Negative LEUKOCYTES UA (POCT) Negative Moderate ! COLOR UA (POCT) Yellow CLARITY UA (POCT) Clear Legend: ! Abnormal A/P ASSESSMENT/PLAN: 1. Acute cystitis without hematuria - ICD9: 595.0, ICD10: N30.00 - will place on Macrobid baron day for 7 days and pyridium 100 mg TID for 2 days Requested Prescriptions Signed Prescriptions Disp Refills nitrofurantoin monohydrate and macrocrystal (MACROBID) 100 mg capsule 14 capsule 0 Sig: Take 1 capsule by mouth two times a day with meals for 7 days. phenazopyridine (PYRIDIUM) 100 mg tablet 6 tablet 0 Sig: Take 1 tablet by mouth three times a day as needed. F/u if not improving. Rito Camp MD documented [facility] Telephone encounter Note * Telephone Encounter - Shanna Newton APRN.CNP - 06/05/2024 11:59 AM EDT Call patient let her know that she only had 10-50,000 of mixed microbiota. This is not a significant bacteria for urine culture. Patient should either follow-up with primary care or be retested for another urine. [facility] Work Phone: [phone]) 712-674710-04-2024 Telephone encounter Note* Telephone Encounter - Joana Au RN - 06/05/2024 11:48 AM EDT Patient requesting Express Care to advise on her recent urine culture results, when able. Reports her urinary sx's remain the same as OV on Saturday. Please advise patient at [phone]. Thank you. [facility]10-02-2024 NoteHNO ID: [id number] Author: MARY ANN SHERMAN APRN.SENIOR INFORMATICA DEVELOPER Service: ? Author Type: Nurse Practitioner Type: Progress Notes Filed: 06/03/2024 11:08 Note Text: This note was created using [employer] Subjective Diony Ramirez is a 69 year old female. Relevant PMH and allergies: Pt is a 69 year old female who presents today with vaginal burning/irritation, frequency and pressure x3 days. Pts states she started to develop some pain when urinating and frequency. She tried taking AZO two days ago to help with her symptoms which provided slight relief. Pt states she has not noticed any blood in her urine or had any back or side pain. Pt denies changes in detergents, soap and recent antibiotics. Pt states she is currently sexually active and does not use condoms with her partner. Pt denies changes in discharge, odor, redness and rash. Pt states she has had UTIs in the past. Pt no longer gets her periods. Denies fever, chills, nausea, vomiting, diarrhea, cough, chest pain and SOB. The history is provided by the patient. No valve inserter was used. UTI This is a new problem. The current episode started more than 2 days ago. The problem occurs every urination. The problem has been gradually improving. The quality of the pain is described as burning. The pain is mild. There has been no fever. She is Sexually active. There is No history of pyelonephritis. Associated symptoms include frequency and urgency. Pertinent negatives include no chills, no sweats, no nausea, no vomiting, no discharge, no hematuria, no hesitancy and no flank pain. Treatments tried: AZO. Her past medical history is significant for recurrent UTIs. Her past medical history does not include kidney stones or catheterization. PAST MEDICAL HISTORY Diagnosis Date Abnormal toxicological findings 02/01/2021 Tox screen 01/27/2021 showed no benzos and pos for oxycodone which patient was not on. Patient informed of no further controlled med refills. 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 Chronic anxiety 06/17/2018 Degenerative arthritis of lumbar spine 05/06/2014 Ectatic thoracic aorta ([facility]) 12/04/2022 CT done 12/2022 Elevated blood sugar 01/27/2021 Emphysema of lung ([facility]) 03/18/2015 Essential hypertension, benign 02/21/2015 Ex-smoker 01/27/2021 Started around 89 and quit 2004. Smoked about 1.5 PPD GERD without esophagitis 09/12/2022 Herpes 01/27/2021 History of 2019 novel coronavirus disease (COVID-19) 01/27/202106/2020 History of small bowel obstruction HSV (herpes simplex virus) anogenital infection 02/08/2016 Living will on file at physician's office 09/27/2022 DPA: Reina Denise (aunt) Lung mass 09/07/2011 Lung nodules 05/30/[address] Suleman Gustafson Medicare annual wellness visit, subsequent 01/27/2021 Medicare Part B: NA Last done: Multiple thyroid nodules 01/27/[address] Vigil and f/u was stable. Told no need for further f/u. 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 Takes mid morning. Substance agreement signed and Tox screen done 12/2020. 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 COLONOSCOPY FLX DX W/COLLJ SPEC WHEN PFRMD 08/19/2006 Repeat in -2015 COLONOSCOPY FLX DX W/COLLJ SPEC WHEN PFRMD 06/27/2016 Colonoscopy CRANIOPLASTY SKULL DEF/REPAIR/ BRAIN 09/14/2014 See scanned documents - status post ESOPHAGOGASTRODUODENOSCOPY TRANSORAL DIAGNOSTIC 06/27/2016 EGD ESOPHAGOGASTRODUODENOSCOPY TRANSORAL DIAGNOSTIC 06/30/2018 EGD IANDD ABSCESS CMPLX/MULT 07/2013 Epidural abscess- MSSA LIG/TRNSXJ FLP TUBE ABDL/VAG APPR UNI/BI Tubal ligation PAST SURGICAL HISTORY OF spinal surgery PAST SURGICAL HISTORY OF retinal detachment OD, (2 tears) PAST SURGICAL HISTORY OF 2012 back surgery STRESS TEST NUCLEAR 05/23/2021 negative ALLERGIES Fish, Horse/Equine Containing Products, Lisinopril, and Shellfish Derived MEDICATIONS acyclovir (ZOVIRAX) 400 mg tablet Take 1 tablet by mouth two times a day. omeprazole (PRILOSEC) 40 mg capsule Take 1 capsule by mouth once daily. traZODone (DESYREL) 150 mg tablet Take 1 tablet by mouth daily at bedtime. amLODIPine (NORVASC) 2.5 mg tablet Take 1 tablet by mouth once daily. hydrOXYzine HCl (ATARAX) 10 mg tablet Take 1 tablet by mouth daily at bedtime. FOLIC ACID ORA (more content not included)...[facility] 06-03-2024 History of Present illness Narrative* Mary Ann Sherman, ALAN.SENIOR INFORMATICA DEVELOPER - 06/03/2024 10:17 AM EDT This note was created using [employer]. Subjective Diony Ramirez is a 69 year old female. Relevant PMH and allergies: Pt is a 69 year old female who presents today with vaginal burning/irritation, frequency and pressure x3 days. Pts states she started to develop some pain when urinating and frequency. She tried taking AZO two days ago to help with her symptoms which provided slight relief. Pt states she has not noticed any blood in her urine or had any back or side pain. Pt denies changes in detergents, soap andrecent antibiotics. Pt states she is currently sexually active and does not use condoms with her partner. Pt denies changes in discharge, odor, redness and rash. Pt states she has had UTIs in the past. Pt no longer gets her periods. Denies fever, chills, nausea, vomiting, diarrhea, cough, chest pain and SOB. The history is provided by the patient. No valve inserter was used. UTI This is a new problem. The current episode started more than 2 days ago. The problem occurs every urination. The problem has been gradually improving. The quality of the pain is described as burning.The pain is mild. There has been no fever. She is Sexually active. There is No history of pyelonephritis. Associated symptoms include frequency and urgency. Pertinent negatives include no chills, no sweats, no nausea, no vomiting, no discharge, no hematuria, no hesitancy and no flank pain. Treatments tried: AZO. Her past medical history is significant for recurrent UTIs. Her past medical history does not include kidney stones or catheterization. PAST MEDICAL HISTORY Diagnosis Date Abnormal toxicological findings 02/01/2021 Tox screen 01/27/2021 showed no benzos and pos for oxycodone which patient was not on. Patient informed of no further controlled med refills. 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 Chronic anxiety 06/17/2018 Degenerative arthritis of lumbar spine 05/06/2014 Ectatic thoracic aorta (HCC) 12/04/2022 CT done 12/2022 Elevated blood sugar 01/27/2021 Emphysema of lung ([facility]) 03/18/2015 Essential hypertension, benign 02/21/2015 Ex-smoker 01/27/2021 Started around 89 and quit 2004. Smoked about 1.5 PPD GERD without esophagitis 09/12/2022 Herpes 01/27/2021 History of 2019 novel coronavirus disease (COVID-19) 01/27/202106/2020 History of small bowel obstruction HSV (herpes simplex virus) anogenital infection 02/08/2016 Living will on file at physician's office 09/27/2022 DPA: Reina Denise (aunt) Lung mass 09/07/2011 Lung nodules 05/30/[address] Suleman Gustafson Medicare annual wellness visit, subsequent 01/27/2021 Medicare Part B: NA Last done: Multiple thyroid nodules 01/27/[address] Vigil and f/u was stable. Told no need for further f/u. 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 Takes mid morning. Substance agreement signed and Tox screen done 12/2020. 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 COLONOSCOPY FLX DX W/COLLJ SPEC WHEN PFRMD 08/19/2006 Repeat in COLONOSCOPY FLX DX W/COLLJ SPEC WHEN PFRMD 06/27/2016 Colonoscopy CRANIOPLASTY SKULL DEF/REPAIR/ BRAIN 09/14/2014 See scanned documents - status post ESOPHAGOGASTRODUODENOSCOPY TRANSORAL DIAGNOSTIC 06/27/2016 EGD ESOPHAGOGASTRODUODENOSCOPY TRANSORAL DIAGNOSTIC 06/30/2018 EGD I&D ABSCESS CMPLX/MULT 07/2013 Epidural abscess- MSSA LIG/TRNSXJ FLP TUBE ABDL/VAG APPR UNI/BI Tubal ligation PAST SURGICAL HISTORY OF spinal surgery PAST SURGICAL HISTORY OF 2/307 retinal detachment OD, (2 tears) PAST SURGICAL HISTORY OF 2012 back surgery STRESS TEST NUCLEAR 05/23/2021 negative ALLERGIES Fish, Horse/Equine Containing Products, Lisinopril, and Shellfish Derived MEDICATIONS acyclovir (ZOVIRAX) 400 mg tablet Take 1 tablet by mouth two times a day. omeprazole (PRILOSEC) 40 mg capsule Take 1 capsule by mouth once daily. traZODone (DESYREL) 150 mg tablet Take 1 tablet by mouth daily at bedtime. amLODIPine (NORVASC) 2.5 mg tablet Take 1 tablet by mouth once daily. hydrOXYzine HCl (ATARAX) 10 mg tablet Take 1 tablet by mouth daily at bedtime. FOLIC ACID ORAL Take by mouth as directed. ZINC ORAL Take by mouth as directed. SYMBICORT 160-4.5 mcg/actuation inhaler BIOTIN ORAL Take 5,000 mcg by mouth. ascorbic acid/collagen hydr (COLLAGEN PLUS VITAMIN C ORAL) Take 1,000 mg by mouth twice daily. albuterol HFA (PROAIR HFA) 90 mcg/actuation inhaler Inhale 2 Puffs as instructed every 4 hours as needed for Wheezing/Shortness of Breath. Melatonin 5 mg cap 5 mg by mouth taken 2 hours prior to bedtime (Patient taking differently: 10 mg.5 mg by mouth taken 2 hours prior to bedtime) Ascorbic Acid (VITAMIN C) 1,000 mg TbER Take by mouth. Calcium Carb-Cholecalciferol (CALCIUM 600 WITH VITAMIN D3) 600-200 mg-unit ORAL Tab Take one(1) tablet two(2) times daily. fluconazole (DIFLUCAN) 150 mg tablet Take 1 tablet by mouth once daily for 1 day. penicillin V potassium 500 mg tablet Take 500 mg by mouth. cetirizine (ZYRTEC) 10 mg tablet Take 1 tablet by mouth once daily. (Patient taking differently: Take 10 mg by mouth as needed.) FAMILY HISTORY Problem Relation Age of Onset Hypertension Mother other (cerebral aneurysm) Mother Colon Polyps Father Hypertension Father COPD Father Cancer Father Bladder Cancer other (Past medical history) Father abdominal aneurysm/bladder cancer other (aortic aneurysm) Father Aneurysm Paternal Grandfather Social History Tobacco Use Smoking status: Former Current packs/day: 0.00 Average packs/day: 1.5 packs/day for 15.0 years (22.5 ttl pk-yrs) Types: Cigarettes Start date: 07/31/1990 Quit date: 07/31/2005 Years since quittin.8 Smokeless tobacco: Never Vaping Use Vaping status: Never Used Substance Use Topics Alcohol use: Yes Alcohol/week: 10.0 - 15.0 standard drinks of alcohol Types: 10 - 15 Cans of Beer (12oz) per week Comment: 5-8 beers daily Drug use: No Review of Systems Constitutional: Negative for activity change, appetite change, chills, fatigue and fever. HENT: Negative for ear discharge, ear pain, rhinorrhea, sinus pressure, sinus pain and sore throat. Eyes: Negative for pain, discharge and itching. Respiratory: Negative for cough, shortness of breath and wheezing. Cardiovascular: Negative for chest pain and palpitations. Gastrointestinal: Negative for abdominal pain, blood in stool, constipation, diarrhea, nausea and vomiting. Genitourinary: Positive for dysuria, frequency and urgency. Negative for decreased urine volume, difficulty urinating, flank pain, hematuria, hesitancy and vaginal discharge. Skin: Negative for rash. Allergic/Immunologic: Negative for environmental allergies and food allergies. Neurological: Negative for headaches. Objective BP 142/88 Pulse 85 Temp 36.9 C (98.5 F) Resp 20 Wt 40.6 kg (89 lb 8.1 oz) LMP 03/23/2007 SpO2 94% BMI 19.37 kg/m Physical Exam Vitals and nursing note reviewed. Constitutional: General: She is not in acute distress. Appearance: Normal appearance. She is not ill-appearing. HENT: Head: Normocephalic and atraumatic. Eyes: Conjunctiva/sclera: Conjunctivae normal. Pupils: Pupils are equal, round, and reactive to light. Cardiovascular: Rate and Rhythm: Normal rate and regular rhythm. Pulses: Normal pulses. Heart sounds: Normal heart sounds. Pulmonary: Effort: Pulmonary effort is normal. No respiratory distress. Breath sounds: Normal breath sounds. No wheezing or rhonchi. Abdominal: Palpations: Abdomen is soft. Tenderness: There is no abdominal tenderness. There is no right CVA tenderness, left CVA tenderness, guarding or rebound. Skin: General: Skin is warm. Neurological: Mental Status: She is alert. Psychiatric: Mood and Affect: Mood normal. Behavior: Behavior normal. Assessment and Plan ASSESSMENT/PLAN: 1. Dysuria - ICD9: 788.1, ICD10: R30.0 Acute -irritation, burning and frequency x3 days -Slight relief with use of AZO -Urine dip performed -Urine dip negative -UTI vs yeast vs STI - Send urine for culture -Will call with results - Patient education for prevention given - UA DIP, URINE (POC) - URINE CULTURE - FLUCONAZOLE 150 MG TABLET - TRICHOMONAS VAGINALIS NAAT - GONORRHEA/CHLAMYDIA NAAT -will call with results -Patient to take fluconazole for possible yeast infection and urine to be sent for possible STI's and culture -Patient understands and in agreement with plan Tyra Henry Student TEACHING PROVIDER (Physician/PA/PRODUCTION SAMPLER) NOTE OF PERSONAL INVOLVEMENT IN CARE: I have personally seen and examined the patient and performed the medical decision-making components. I have reviewed the Advanced Practice Registered Nurse (PRODUCTION SAMPLER) Student's documentation and verified the findings in the note as written. Any additions or changes are noted in bold/italics. Signature: Mary Ann Sherman Date: 06/03/2024 Time: 11:06 AM documented in [facility] NoteHNO ID: [id number] Author: CHRISTINE PARKER RN Service: ? Author Type: Registered Nurse Type: Progress Notes Filed: 05/07/2024 09:48 Note Text: CDM Telephonic Outreach Provider Action/FYI Contacted for: Routine Telephonic Outreach Contact made with patient: Yes Patient identified by name and date of . Discussed care with patient Are you experiencing any new or worsening symptoms you need to talk about today? No Disease Specific Do you check your blood pressure at home? No Do you have new or worsening shortness of breath with activity? No Do you have new or worsening cough? No Do you have new or worsening wheezing? No Do you need to use your rescue (Albuterol) inhaler or nebulizer more often than normal? No Based on communications clerk, the following disposition is advised: No symptoms or symptoms present, not severe. Routed to: No Action Needed PALOMA Education Provided this Outreach: No Pt reports she is doing ok and she is not having any new or worsening cdm concerns at this time. She starts pt next week for her shoulder. She will contact the office with any needs. Christine Parker RN May 07, 2024 9:47 [facility]09-05-2024 History of Present illness Narrative* Christine Parker RN - 05/07/2024 9:44 AM EDT CDM Telephonic Outreach Provider Action/FYI Contacted for: Routine Telephonic Outreach Contact made with patient: Yes Patient identified by name and date of . Discussed care with patient Are you experiencing any new or worsening symptoms you need to talk about today? No Disease Specific Do you check your blood pressure at home? No Do you have new or worsening shortness of breath with activity? No Do you have new or worsening cough? No Do you have new or worsening wheezing? No Do you need to use your rescue (Albuterol) inhaler or nebulizer more often than normal? No Based on communications clerk, the following disposition is advised: No symptoms or symptoms present, not severe. Routed to: No Action Needed PALOMA Education Provided this Outreach: No Pt reports she is doing ok and she is not having any new or worsening cdm concerns at this time. She starts pt next week for her shoulder. She will contact the office with any needs. Christine Parker RN May 07, 2024 9:47 AM documented in this encounterPark[facility]09-[facility]24 NotePatient Outreach ([facility]) DIONY RAMIREZ ([id number]) 1955 F Date Time Provider Department 05/07/24 CHRISTINE PARKER During your visit today, we recorded the following information about you: Christine Parker RN 05/07/2024 9:48 AM Signed CDM Telephonic Outreach Provider Action/FYI Contacted for: Routine Telephonic Outreach Contact made with patient: Yes Patient identified by name and date of . Discussed care with patient Are you experiencing any new or worsening symptoms you need to talk about today? No Disease Specific Do you check your blood pressure at home? No Do you have new or worsening shortness of breath with activity? No Do you have new or worsening cough? No Do you have new or worsening wheezing? No Do you need to use your rescue (Albuterol) inhaler or nebulizer more often than normal? No Based on communications clerk, the following disposition is advised: No symptoms or symptoms present, not severe. Routed to: No Action Needed PALOMA Education Provided this Outreach: No Pt reports she is doing ok and she is not having any new or worsening cdm concerns at this time. She starts pt next week for her shoulder. She will contact the office with any needs. Christine Parker RN May 07, 2024 9:47 AM Allergies As of Date: 05/07/2024 Noted Allergy Reaction FISH 06/23/2005 16 - Unknown HORSE/EQUINE CONTAINING PRODUCTS 08/30/2023 16 - Unknown LISINOPRIL 12/07/2015 3 - Cough SHELLFISH DERIVED 08/30/2023 16 - Unknown Date Reviewed: 04/14/2024 Reviewed by: Mila Kidd MA - Fully Assessed Reason for Visit: CDM [Other] Cmt: Telephonic Outreach Prescriptions as of 05/07/2024 - acyclovir (ZOVIRAX) 400 mg tablet Take 1 tablet by mouth two times a day. - penicillin V potassium 500 mg tablet Take 500 mg by mouth. - omeprazole (PRILOSEC) 40 mg capsule Take 1 capsule by mouth once daily. - traZODone (DESYREL) 150 mg tablet Take 1 tablet by mouth daily at bedtime. - amLODIPine (NORVASC) 2.5 mg tablet Take 1 tablet by mouth once daily. - hydrOXYzine HCl (ATARAX) 10 mg tablet Take 1 tablet by mouth daily at bedtime. - FOLIC ACID ORAL Take by mouth as directed. - cetirizine (ZYRTEC) 10 mg tablet Take 1 tablet by mouth once daily. - ZINC ORAL Take by mouth as directed. - SYMBICORT 160-4.5 mcg/actuation inhaler - BIOTIN ORAL Take 5,000 mcg by mouth. - ascorbic acid/collagen hydr (COLLAGEN PLUS VITAMIN C ORAL) Take 1,000 mg by mouth twice daily. - albuterol HFA (PROAIR HFA) 90 mcg/actuation inhaler Inhale 2 Puffs as instructed every 4 hours as needed for Wheezing/Shortness of Breath. - Melatonin 5 mg cap 5 mg by mouth taken 2 hours prior to bedtime - Ascorbic Acid (VITAMIN C) 1,000 mg TbER Take by mouth. - Calcium Carb-Cholecalciferol (CALCIUM 600 WITH VITAMIN D3) 600-200 mg-unit ORAL Tab Take one(1) tablet two(2) times daily. Problem List As Of Date 05/07/2024 Noted Resolved Chronic interstitial cystitis [N30.10] 04/08/2006 Adjustment disorder with depressed mood [F43.21]05/20/2006 09/21/2019 Insomnia, unspecified [G47.00] 05/20/2006 Generalized hyperhidrosis [R61] 05/20/2006 Contact dermatitis and other eczema, due to uns*02/05/2008 12/07/2015 Cervicalgia [M54.2] 07/26/2008 09/21/2019 Pain in joint, shoulder region [M25.519] 07/26/2008 03/18/2017 Manic disorder, recurrent episode, moderate (HC*08/18/2008 Contact dermatitis and other eczema due to othe*02/03/2009 12/07/2015 Disorders of bursae and tendons in shoulder reg*02/26/2009 12/07/2015 Lumbar spinal stenosis [M48.061] 08/05/2009 Climacteric [N95.1] 01/13/2010 08/07/2016 Lung mass [R91.8] 09/07/2011 09/21/2019 Postmenopausal atrophic vaginitis [N95.2] 05/01/2012 Heavy alcohol use [F10.90] 01/14/2013 Epidural abscess [G06.2] 09/16/2013 04/28/2014 Chest pain, atypical [R07.89] 12/15/2013 04/28/2014 SOB (shortness of breath) [R06.02] 12/15/2013 04/28/2014 Degenerative arthritis of lumbar spine [M47.816]05/06/2014 Arnold-Chiari malformation (HCC) [Q07.00] 09/22/2014 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] 09/22/2014 Cervical spondylosis without myelopathy [M47.81*02/21/2015 Essential hypertension, benign [I10] 02/21/2015 Emphysema of lung (HCC) [J43.9] 03/18/2015 Osteoporosis [M81.0] 09/01/2015 Overactive bladder [N32.81] 09/01/2015 HSV (herpes simplex virus) anogenital infection*02/08/2016 09/21/2019 Asthma with COPD with exacerbation (HCC) [J44.1*09/05/2016 Nocturnal muscle cramps [R25.2] 09/11/2016 09/21/2019 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] 10/10/2016 09/21/2019 Carpal tunnel syndrome, right [G56.01] 01/03/2017 09/21/2019 Chronic anxiety [F41.9] 06/17/2018 Lumbar radiculopathy [M54.16] 04/19/2020 Herpes [B00.9] 01/27/2021 Ex-smoker [Z87.891] 01/27/2021 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] 01/27/2021 History of 2019 novel coronavirus disease (COVI*01/27/2021 Multiple thyroid (more content not included)...[facility] 05-06-2024 NoteHNO ID: [id number] Author: CHRISTINE PARKER RN Service: ? Author Type: Registered Nurse Type: Progress Notes Filed: 05/06/2024 11:50 Note Text: [facility] Telephonic Outreach Provider Action/FYI 1st attempt Contacted for: Routine Telephonic Outreach Contact made with patient: No, left message. Christine Parker RN May 06, 2024 11:50 [facility]09-04-[facility] History of Present illness Narrative* Christine Parker RN - 05/06/2024 11:48 AM EDT [facility] Telephonic Outreach Provider Action/FYI 1st attempt Contacted for: Routine Telephonic Outreach Contact made with patient: No, left message. Christine Parker RN May 06, 2024 11:50 AM documented in this encounterPark[facility]09-[facility] NotePatient Outreach ([facility]) DIONY RAMIREZ ([id number]) 1955 F Date Time Provider Department 05/06/24 CHRISTINE PARKER During your visit today, we recorded the following information about you: Christine Parker RN 05/06/2024 11:50 AM Signed CDM Telephonic Outreach Provider Action/FYI 1st attempt Contacted for: Routine Telephonic Outreach Contact made with patient: No, left message. Christine Parker RN May 06, 2024 11:50 AM Allergies As of Date: 05/06/2024 Noted Allergy Reaction FISH 06/23/2005 16 - Unknown HORSE/EQUINE CONTAINING PRODUCTS 08/30/2023 16 - Unknown LISINOPRIL 12/07/2015 3 - Cough SHELLFISH DERIVED 08/30/2023 16 - Unknown Date Reviewed: 04/14/2024 Reviewed by: Mila Kidd MA - Fully Assessed Reason for Visit: CDM [Other] Cmt: Telephonic Outreach Prescriptions as of 05/06/2024 - acyclovir (ZOVIRAX) 400 mg tablet Take 1 tablet by mouth two times a day. - penicillin V potassium 500 mg tablet Take 500 mg by mouth. - omeprazole (PRILOSEC) 40 mg capsule Take 1 capsule by mouth once daily. - traZODone (DESYREL) 150 mg tablet Take 1 tablet by mouth daily at bedtime. - amLODIPine (NORVASC) 2.5 mg tablet Take 1 tablet by mouth once daily. - hydrOXYzine HCl (ATARAX) 10 mg tablet Take 1 tablet by mouth daily at bedtime. - FOLIC ACID ORAL Take by mouth as directed. - cetirizine (ZYRTEC) 10 mg tablet Take 1 tablet by mouth once daily. - ZINC ORAL Take by mouth as directed. - SYMBICORT 160-4.5 mcg/actuation inhaler - BIOTIN ORAL Take 5,000 mcg by mouth. - ascorbic acid/collagen hydr (COLLAGEN PLUS VITAMIN C ORAL) Take 1,000 mg by mouth twice daily. - albuterol HFA (PROAIR HFA) 90 mcg/actuation inhaler Inhale 2 Puffs as instructed every 4 hours as needed for Wheezing/Shortness of Breath. - Melatonin 5 mg cap 5 mg by mouth taken 2 hours prior to bedtime - Ascorbic Acid (VITAMIN C) 1,000 mg TbER Take by mouth. - Calcium Carb-Cholecalciferol (CALCIUM 600 WITH VITAMIN D3) 600-200 mg-unit ORAL Tab Take one(1) tablet two(2) times daily. Problem List As Of Date 05/06/2024 Noted Resolved Chronic interstitial cystitis [N30.10] 04/08/2006 Adjustment disorder with depressed mood [F43.21]05/20/2006 09/21/2019 Insomnia, unspecified [G47.00] 05/20/2006 Generalized hyperhidrosis [R61] 05/20/2006 Contact dermatitis and other eczema, due to uns*02/05/2008 12/07/2015 Cervicalgia [M54.2] 07/26/2008 09/21/2019 Pain in joint, shoulder region [M25.519] 07/26/2008 03/18/2017 Manic disorder, recurrent episode, moderate (HC*08/18/2008 Contact dermatitis and other eczema due to othe*02/03/2009 12/07/2015 Disorders of bursae and tendons in shoulder reg*02/26/2009 12/07/2015 Lumbar spinal stenosis [M48.061] 08/05/2009 Climacteric [N95.1] 01/13/2010 08/07/2016 Lung mass [R91.8] 09/07/2011 09/21/2019 Postmenopausal atrophic vaginitis [N95.2] 05/01/2012 Heavy alcohol use [F10.90] 01/14/2013 Epidural abscess [G06.2] 09/16/2013 04/28/2014 Chest pain, atypical [R07.89] 12/15/2013 04/28/2014 SOB (shortness of breath) [R06.02] 12/15/2013 04/28/2014 Degenerative arthritis of lumbar spine [M47.816]05/06/2014 Arnold-Chiari malformation (HCC) [Q07.00] 09/22/2014 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] 09/22/2014 Cervical spondylosis without myelopathy [M47.81*02/21/2015 Essential hypertension, benign [I10] 02/21/2015 Emphysema of lung (HCC) [J43.9] 03/18/2015 Osteoporosis [M81.0] 09/01/2015 Overactive bladder [N32.81] 09/01/2015 HSV (herpes simplex virus) anogenital infection*02/08/2016 09/21/2019 Asthma with COPD with exacerbation (HCC) [J44.1*09/05/2016 Nocturnal muscle cramps [R25.2] 09/11/2016 09/21/2019 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] 10/10/2016 09/21/2019 Carpal tunnel syndrome, right [G56.01] 01/03/2017 09/21/2019 Chronic anxiety [F41.9] 06/17/2018 Lumbar radiculopathy [M54.16] 04/19/2020 Herpes [B00.9] 01/27/2021 Ex-smoker [Z87.891] 01/27/2021 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] 01/27/2021 History of 2019 novel coronavirus disease (COVI*01/27/2021 Multiple thyroid nodules [E04.2] 01/27/2021 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] 01/27/2021 Medicare annual wellness visit, subsequent [Z00*01/27/2021 Medication management [Z79.899] 01/27/2021 Elevated blood sugar [R73.9] 01/27/2021 Abnormal toxicological findings [R89.2] 02/01/2021 Lung nodules [R91.8] 05/30/2021 GERD without esophagitis [K21.9] 09/12/2022 Living will on file at physician's office [Z78.*09/27/2022 Advance directive discussed with patient [Z71.8*09/27/2022 Ectatic thoracic aorta (HCC) [I77.810] 12/04/2022 Chronic bilateral low back pain with sciatica [*07/15/2023 Encounter Status:Closed by CHRISTINE PARKER RN on 05/06/24[facility] Telephone encounter Note* Telephone Encounter - Fannie Centeno LPN - 04/29/2024 11:17 AM EDT Spoke with pt and information listed below given. Pt verbalizes understanding. Fannie Centeno LPN [facility]08-[facility] Miscellaneous Notes* Telephone Encounter - Fannie Centeno LPN - 04/29/2024 11:17 AM EDT Spoke with pt and information listed below given. Pt verbalizes understanding. Fannie Centeno LPN * Telephone Encounter - Aury Newton MA - 04/27/2024 1:39 PM EDT Left message for patient to contact office. Aury Newton MA * Telephone Encounter - Alex Brown APRN.CNP - 04/27/2024 1:22 PM EDT Please let patient know her MRI does not show any rotator cuff injury but does show tendinosis. I have ordered pT. * Telephone Encounter - Mila Kidd MA - 04/14/2024 11:37 AM EDT Pt notified and verbalized understanding Mila Kidd MA * Telephone Encounter - Alex Brown APRN.CNP - 04/14/2024 11:24 AM EDT Please let patient know their xray is negative for fracture. [facility] in this encounter[facility] Telephone encounter Note * Telephone Encounter - Aury Newton MA - 04/27/2024 2:13 PM EDT Prescription Refill Information The patient has been identified by name and date of : Yes Caregiver verified no other encounters exist for this prescription request: Yes Caregiver confirmed with patient/requestor that no other refills are due, in the near future, with this provider at this time: Yes The last office visit in the department: 04/2024 Does the patient have a future office visit with this provider/department: Yes 09/2024 Requested Prescriptions Pending Prescriptions Disp Refills acyclovir (ZOVIRAX) 400 mg tablet 180 tablet 3 Sig: Take 1 tablet by mouth two times a day. Aury Newton MA April 27, 2024 2:13 PM [facility]08-26-2024 Miscellaneous Notes* Telephone Encounter - Aury Newton MA - 04/27/2024 2:13 PM EDT Prescription Refill Information The patient has been identified by name and date of : Yes Caregiver verified no other encounters exist for this prescription request: Yes Caregiver confirmed with patient/requestor that no other refills are due, in the near future, with this provider at this time: Yes The last office visit in the department: 04/2024 Does the patient have a future office visit with this provider/department: Yes 09/2024 Requested Prescriptions Pending Prescriptions Disp Refills acyclovir (ZOVIRAX) 400 mg tablet 180 tablet 3 Sig: Take 1 tablet by mouth two times a day. Aury Newton MA April 27, 2024 2:13 PM * Telephone Encounter - Angella Stevens - 04/27/2024 2:04 PM EDT Prescription Refill Information The patient has been identified by name and date of : Yes Caregiver verified no other encounters exist for this prescription request: Yes Caregiver confirmed with patient/requestor that no other refills are due, in the near future, with this provider at this time: Yes The last office visit in the department: 04-14-24 Does the patient have a future office visit with this provider/department: Yes Requested Prescriptions Pending Prescriptions Disp Refills acyclovir (ZOVIRAX) 400 mg tablet 180 tablet 3 Sig: Take 1 tablet by mouth two times a day. Angella Kirkland April 27, 2024 2:05 PM documented in [facility] encounter[facility] Telephone encounter Note * Telephone Encounter - Angella Stevens - 04/27/2024 2:04 PM EDT Prescription Refill Information The patient has been identified by name and date of : Yes Caregiver verified no other encounters exist for this prescription request: Yes Caregiver confirmed with patient/requestor that no other refills are due, in the near future, with this provider at this time: Yes The last office visit in the department: 04-14-24 Does the patient have a future office visit with this provider/department: Yes Requested Prescriptions Pending Prescriptions Disp Refills acyclovir (ZOVIRAX) 400 mg tablet 180 tablet 3 Sig: Take 1 tablet by mouth two times a day. Angella Kirkland April 27, 2024 2:05 PM [facility] Work Phone: [phone] Telephone encounter Note* Telephone Encounter - Aury Newotn MA - 04/27/2024 1:39 PM EDT Left message for patient to contact office. Aury Newton MA [facility]08-26-[facility] Telephone encounter Note* Telephone Encounter - Alex Brown APRN.CNP - 04/27/2024 1:22 PM EDT Please let patient know her MRI does not show any rotator cuff injury but does show tendinosis. I have ordered pT. [facility]08-23-2024 History of Present illness Narrative* Angella Bassett CT - 04/24/2024 9:20 AM EDT Radiology Service Progress Note PATIENT NAME: Diony Ramirez DATE OF SERVICE: April 24, 2024 TIME: 9:39 AM PATIENT IDENTITY VERIFICATION COMPLETED USING TWO (2) IDENTIFIERS: Name and Date of confirmedby patient verbally and Name and Date of confirmed by identification band. FALL SCREENING: Has the patient had 2 falls in the last year or 1 fall with injury or currently using an Ambulatory Assistive Device (Walker, Cane, Wheelchair, Crutches, etc.)? Yes, Patient High Riskfor Falls What interventions were put in place to prevent falls during this visit? Yellow Falls Risk Wristband Applied and Increased Observations by Caregivers PATIENT GENDER DATA: Female. status: : No status: NO. PATIENT RELEVANT IMPLANT DATA REVIEWED: Yes PATIENT PRESENTS WITH AN IMPLANTABLE OR ATTACHED ELECTRIC STOP INSTALLER: No RADIOLOGY DEPARTMENT: MR; Exam(s) Completed: Upper MSK: Shoulder, left PERIPHERAL IV DATA: Not applicable SIGNED BY: ZARI Batista April 24, 2024 9:39 AM documented in this encounterParkwood Hospital08-23-2024 NoteHNO ID: [id number] Author: ANGELLA BASSETT CT Service: Radiology Author Type: Technologist Type: Progress Notes Filed: 04/24/2024 09:40 Note Text: Radiology Service Progress Note PATIENT NAME: Diony Ramirez DATE OF SERVICE: April 24, 2024 TIME: 9:39 AM PATIENT IDENTITY VERIFICATION COMPLETED USING TWO (2) IDENTIFIERS: Name and Date of confirmed by patient verbally and Name and Date of confirmed by identification band. FALL SCREENING: Has the patient had 2 falls in the last year or 1 fall with injury or currently using an Ambulatory Assistive Device (Walker, Cane, Wheelchair, Crutches, etc.)? Yes, Patient High Risk for Falls What interventions were put in place to prevent falls during this visit? [place] Falls Risk Wristband Applied and Increased Observations by Caregivers PATIENT GENDER DATA: Female. status: : No status: NO. PATIENT RELEVANT IMPLANT DATA REVIEWED: Yes PATIENT PRESENTS WITH AN IMPLANTABLE OR ATTACHED ELECTRIC STOP INSTALLER: No RADIOLOGY DEPARTMENT: MR; Exam(s) Completed: Upper MSK: Shoulder, left PERIPHERAL IV DATA: Not applicable SIGNED BY: ZARI Batista April 24, 2024 9:39 [facility]08-19-2024 Telephone encounter Note* Telephone Encounter - Good Silva RN - 04/20/2024 12:24 PM EDT Patient reports she fell on her right side on 04-14-24, and was seen in the office for possible broken ribs. Xray was negative. Patient has been using ice, taking tylenol, and ibuprofen and states these do not seem to be helping the pain. Reports if she moves the wrong way the pain goes to 8/10. Reports she also has osteoarthritis. Advised patient she will probably be sore for a few weeks, and shemay have sore muscles as well. Advised patient to try to avoid the movement that creates the pain, and give it more time to heal. If no improvement after 2 weeks, may call back to pcp office and nurse can schedule a f/u appt. Patient agreeable, and agreeable to call back if condition worsens. [facility]08-19-[facility] Miscellaneous Notes* Telephone Encounter - Good Silva RN - 04/20/2024 12:24 PM EDT Patient reports she fell on her right side on 04-14-24, and was seen in the office for possible broken ribs. Xray was negative. Patient has been using ice, taking tylenol, and ibuprofen and states these do not seem to be helping the pain. Reports if she moves the wrong way the pain goes to 8/10. Reports she also has osteoarthritis. Advised patient she will probably be sore for a few weeks, and shemay have sore muscles as well. Advised patient to try to avoid the movement that creates the pain, and give it more time to heal. If no improvement after 2 weeks, may call back to pcp office and nurse can schedule a f/u appt. Patient agreeable, and agreeable to call back if condition worsens. documented in this encounterParkwood Hospital08-13-2024 Telephone encounter Note * Telephone Encounter - Mila Kidd MA - 04/14/2024 11:37 AM EDT Pt notified and verbalized understanding Mila Kidd MA [facility]08-13-2024 Telephone encounter Note* Telephone Encounter - Alex Brown APRN.CNP - 04/14/2024 11:24 AM EDT Please let patient know their xray is negative for fracture. [facility]08-13-[facility] History of Present illness Narrative* Kandice Ryan RT(Renata) - 04/14/2024 10:20 AM EDT Radiology Service Progress Note PATIENT NAME: Diony Ramirez DATE OF SERVICE: April 14, 2024 TIME: 10:38 AM PATIENT IDENTITY VERIFICATION COMPLETED USING TWO (2) IDENTIFIERS: Name and Date of confirmedby patient verbally. FALL SCREENING: Has the patient had 2 falls in the last year or 1 fall with injury or currently using an Ambulatory Assistive Device (Walker, Cane, Wheelchair, Crutches, etc.)? No PATIENT GENDER DATA: Female. status: : No status: NO. PATIENT RELEVANT IMPLANT DATA REVIEWED: Not Applicable PATIENT PRESENTS WITH AN IMPLANTABLE OR ATTACHED ELECTRIC STOP INSTALLER: No RADIOLOGY DEPARTMENT: General X-ray: Exam(s) Completed: Chest X-Ray PERIPHERAL IV DATA: Not applicable SIGNED BY: RT Liz(R) April 14, 2024 10:38 AM documented in this encounterParkwood Hospital08-13-2024 NoteHNO ID: [id number] Author: KANDICE RYAN RT(Renata) Service: Radiology Author Type: Technologist Type: Progress Notes Filed: 04/14/2024 10:44 Note Text: Radiology Service Progress Note PATIENT NAME: Diony Ramirez DATE OF SERVICE: April 14, 2024 TIME: 10:38 AM PATIENT IDENTITY VERIFICATION COMPLETED USING TWO (2) IDENTIFIERS: Name and Date of confirmed by patient verbally. FALL SCREENING: Has the patient had 2 falls in the last year or 1 fall with injury or currently using an Ambulatory Assistive Device (Walker, Cane, Wheelchair, Crutches, etc.)? No PATIENT GENDER DATA: Female. status: : No status: NO. PATIENT RELEVANT IMPLANT DATA REVIEWED: Not Applicable PATIENT PRESENTS WITH AN IMPLANTABLE OR ATTACHED ELECTRIC STOP INSTALLER: No RADIOLOGY DEPARTMENT: General X-ray: Exam(s) Completed: Chest X-Ray PERIPHERAL IV DATA: Not applicable SIGNED BY: RT Liz(R) April 14, 2024 10:38 [facility]08-13-2024 Instructions* Patient Instructions* Alex Brown APRN.CNP - 04/14/2024 10:01 AM EDT Take 600 mg Ibuprofen every 8 hours as needed and Tylenol 1000 mg every 8 hours as needed, alternating every 4 hours. Continue to ice area 20 minutes on every hour as needed. documented in this encounterParkwood Hospital08-13-2024 NoteHNO ID: [id number] Author: ALEX BROWN APRN.CNP Service: ? Author Type: Nurse Practitioner Type: Progress Notes Filed: 04/14/2024 10:03 Note Text: Chief Complaint Patient presents with: Fall: Fell 5 days ago- right rib pain HPI Diony Ramirez is a 69 year old female who presents here today for Above Complaints.. Patient presents for fall. Patient reports 5 days ago she fell down the steps at her friends house and landed on her right side. Patient reports pain to right ribs. Patient reports she was talking and was not paying attention to the step down from the kitchen. Past medical history, appointments, medications, allergies reviewed. Previous Medical History PAST MEDICAL HISTORY 02/01/2021: Abnormal toxicological findings Comment: Tox screen 01/27/2021 showed no benzos and pos for oxycodone which patient was not on. Patient informed of no further controlled med refills. 01/202105/20/2006: Adjustment disorder with depressed mood 09/27/2022: Advance directive discussed with patient Comment: Discussed 09/2022: Up to date 09/14/2014: Arnold-Chiari malformation (HCC) Comment: See Scanned documents 01/27/2021: Blind right eye Comment: On;y 5% vision remains due to retinal detachment. 06/17/2018: Chronic anxiety 05/06/2014: Degenerative arthritis of lumbar spine 12/04/2022: Ectatic thoracic aorta (HCC) Comment: CT done 12/202201/27/2021: Elevated blood sugar 03/18/2015: Emphysema of lung (HCC) 02/21/2015: Essential hypertension, benign 01/27/2021: Ex-smoker Comment: Started around 89 and quit 2005. Smoked about 1.5 PPD 09/12/2022: GERD without esophagitis 01/27/2021: Herpes 01/27/2021: History of 2019 novel coronavirus disease (COVID-19) Comment: 06/2020 No date: History of small bowel obstruction 02/08/2016: HSV (herpes simplex virus) anogenital infection 09/27/2022: Living will on file at physician's office Comment: DPA: Reina Denise (aunt) 09/07/2011: Lung mass 05/30/2021: Lung nodules Comment: Seeing Dr. Suleman Gustafson 01/27/2021: Medicare annual wellness visit, subsequent Comment: Medicare Part B: NA Last done: 01/27/2021: Multiple thyroid nodules Comment: Was seen by Dr. Vigil and f/u was stable. Told no need for further f/u. 09/01/2015: Osteoporosis Comment: Fosamax restarted 01/201909/01/2015: Overactive bladder 01/27/2021: Post-COVID syndrome Comment: Chest tightness relieved by daily ativan. 01/27/2021: Post-COVID syndrome Comment: Chest tightness relieved by daily ativan. Takes mid morning. Substance agreement signed and Tox screen done 12/2020. tox screen abnormal and patient informed of no future controlled med scripts No date: Retinal detachment Comment: in Right Eye 09/14/2014: Thoracic myelopathy Comment: Secondard to epidural abscess Previous Surgical History PAST SURGICAL HISTORY 05/23/2021: 2D ECHO (EXEP) Comment: EF=65%, 1+TI. 08/19/2006: COLONOSCOPY FLX DX W/COLLJ SPEC WHEN PFRMD Comment: Repeat in 06/27/2016: COLONOSCOPY FLX DX W/COLLJ SPEC WHEN PFRMD Comment: Colonoscopy 09/14/2014: CRANIOPLASTY SKULL DEF/REPAIR/ BRAIN Comment: See scanned documents - status post 06/27/2016: ESOPHAGOGASTRODUODENOSCOPY TRANSORAL DIAGNOSTIC Comment: EGD 06/30/2018: ESOPHAGOGASTRODUODENOSCOPY TRANSORAL DIAGNOSTIC Comment: EGD 07/2013: IANDD ABSCESS CMPLX/MULT Comment: Epidural abscess- MSSA No date: LIG/TRNSXJ FLP TUBE ABDL/VAG APPR UNI/BI Comment: Tubal ligation No date: PAST SURGICAL HISTORY OF Comment: spinal surgery : PAST SURGICAL HISTORY OF Comment: retinal detachment OD, (2 tears) 2012: PAST SURGICAL HISTORY OF Comment: back surgery 05/23/2021: STRESS TEST NUCLEAR Comment: negative Family History FAMILY HISTORY Problem Relation Age of Onset Hypertension Mother other (cerebral aneurysm) Mother Colon Polyps Father Hypertension Father COPD Father Cancer Father Bladder Cancer other (Past medical history) Father abdominal aneurysm/bladder cancer other (aortic aneurysm) Father Aneurysm Paternal Grandfather Patient Allergies ALLERGIES Allergen Reactions Fish Unknown Horse/Equine Contai* Unknown Lisinopril Cough Shellfish Derived Unknown Current Medications Current Outpatient Medications on File Prior to Visit Medication Sig penicillin V potassium 500 mg tablet Take 500 mg by mouth. omeprazole (PRILOSEC) 40 mg capsule Take 1 capsule by mouth once daily. traZODone (DESYREL) 150 mg tablet Take 1 tablet by mouth daily at bedtime. benzonatate (TESSALON PERLES) 100 mg capsule Take 2 capsules by mouth three times a day as needed. baclofen 10 mg tablet Take 1 tablet by mouth three times a day as needed (muscle spasms). amLODIPine (NORVASC) 2.5 mg tablet Take 1 tablet by mouth once daily. hydrOXYzine HCl (ATARAX) 10 mg tablet Take 1 tablet by mouth daily at bedtime. Benzonatate 200 mg capsule Take 1 capsule by mouth three times a day as needed. (P (more content not included)...[facility]08-13-2024 History of Present illness Narrative* Alex Brown, ALAN.SENIOR INFORMATICA DEVELOPER - 04/14/2024 9:52 AM EDT Chief Complaint Patient presents with: Fall: Fell 5 days ago- right rib pain HPI Diony Ramirez is a 69 year old female who presents here today for Above Complaints.. Patient presents for fall. Patient reports 5 days ago she fell down the steps at her friends house and landed on her right side. Patient reports pain to right ribs. Patient reports she was talking and was not paying attention to the step down from the kitchen. Past medical history, appointments, medications, allergies reviewed. Previous Medical History PAST MEDICAL HISTORY 02/01/2021: Abnormal toxicological findings Comment: Tox screen 01/27/2021 showed no benzos and pos for oxycodone which patient was not on. Patient informed of no further controlled med refills. 01/202105/20/2006: Adjustment disorder with depressed mood 09/27/2022: Advance directive discussed with patient Comment: Discussed 09/2022: Up to date 09/14/2014: Arnold-Chiari malformation (HCC) Comment: See Scanned documents 01/27/2021: Blind right eye Comment: On;y 5% vision remains due to retinal detachment. 06/17/2018: Chronic anxiety 05/06/2014: Degenerative arthritis of lumbar spine 12/04/2022: Ectatic thoracic aorta ([facility]) Comment: CT done 12/202201/27/2021: Elevated blood sugar 03/18/2015: Emphysema of lung (HCC) 02/21/2015: Essential hypertension, benign 01/27/2021: Ex-smoker Comment: Started around 89 and quit 2005. Smoked about 1.5 PPD 09/12/2022: GERD without esophagitis 01/27/2021: Herpes 01/27/2021: History of 2019 novel coronavirus disease (COVID-19) Comment: 06/2020 No date: History of small bowel obstruction 02/08/2016: HSV (herpes simplex virus) anogenital infection 09/27/2022: Living will on file at physician's office Comment: DPA: Reina Denise (aunt) 09/07/2011: Lung mass 05/30/2021: Lung nodules Comment: Seeing Dr. Suleman Gustafson 01/27/2021: Medicare annual wellness visit, subsequent Comment: Medicare Part B: NA Last done: 01/27/2021: Multiple thyroid nodules Comment: Was seen by Dr. Vigil and f/u was stable. Told no need for further f/u. 09/01/2015: Osteoporosis Comment: Fosamax restarted 01/201909/01/2015: Overactive bladder 01/27/2021: Post-COVID syndrome Comment: Chest tightness relieved by daily ativan. 01/27/2021: Post-COVID syndrome Comment: Chest tightness relieved by daily ativan. Takes mid morning. Substance agreement signed and Tox screen done 12/2020. tox screen abnormal and patient informed of no future controlled med scripts No date: Retinal detachment Comment: in Right Eye 09/14/2014: Thoracic myelopathy Comment: Secondard to epidural abscess Previous Surgical History PAST SURGICAL HISTORY 05/23/2021: 2D ECHO (EXEP) Comment: EF=65%, 1+TI. 08/19/2006: COLONOSCOPY FLX DX W/COLLJ SPEC WHEN PFRMD Comment: Repeat in 06/27/2016: COLONOSCOPY FLX DX W/COLLJ SPEC WHEN PFRMD Comment: Colonoscopy 09/14/2014: CRANIOPLASTY SKULL DEF/REPAIR/ BRAIN Comment: See scanned documents - status post 06/27/2016: ESOPHAGOGASTRODUODENOSCOPY TRANSORAL DIAGNOSTIC Comment: EGD 06/30/2018: ESOPHAGOGASTRODUODENOSCOPY TRANSORAL DIAGNOSTIC Comment: EGD 07/2013: I&D ABSCESS CMPLX/MULT Comment: Epidural abscess- MSSA No date: LIG/TRNSXJ FLP TUBE ABDL/VAG APPR UNI/BI Comment: Tubal ligation No date: PAST SURGICAL HISTORY OF Comment: spinal surgery : PAST SURGICAL HISTORY OF Comment: retinal detachment OD, (2 tears) 2012: PAST SURGICAL HISTORY OF Comment: back surgery 05/23/2021: STRESS TEST NUCLEAR Comment: negative Family History FAMILY HISTORY Problem Relation Age of Onset Hypertension Mother other (cerebral aneurysm) Mother Colon Polyps Father Hypertension Father COPD Father Cancer Father Bladder Cancer other (Past medical history) Father abdominal aneurysm/bladder cancer other (aortic aneurysm) Father Aneurysm Paternal Grandfather Patient Allergies ALLERGIES Allergen Reactions Fish Unknown Horse/Equine Contai* Unknown Lisinopril Cough Shellfish Derived Unknown Current Medications Current Outpatient Medications on File Prior to Visit Medication Sig penicillin V potassium 500 mg tablet Take 500 mg by mouth. omeprazole (PRILOSEC) 40 mg capsule Take 1 capsule by mouth once daily. traZODone (DESYREL) 150 mg tablet Take 1 tablet by mouth daily at bedtime. benzonatate (TESSALON PERLES) 100 mg capsule Take 2 capsules by mouth three times a day as needed. baclofen 10 mg tablet Take 1 tablet by mouth three times a day as needed (muscle spasms). amLODIPine (NORVASC) 2.5 mg tablet Take 1 tablet by mouth once daily. hydrOXYzine HCl (ATARAX) 10 mg tablet Take 1 tablet by mouth daily at bedtime. Benzonatate 200 mg capsule Take 1 capsule by mouth three times a day as needed. (Patient not taking: Reported on 10/15/2023) FOLIC ACID ORAL Take by mouth as directed. cetirizine (ZYRTEC) 10 mg tablet Take 1 tablet by mouth once daily. (Patient taking differently: Take 10 mg by mouth as needed.) acyclovir (ZOVIRAX) 400 mg tablet Take 1 tablet by mouth twice daily. ZINC ORAL Take by mouth as directed. SYMBICORT 160-4.5 mcg/actuation inhaler BIOTIN ORAL Take 5,000 mcg by mouth. ascorbic acid/collagen hydr (COLLAGEN PLUS VITAMIN C ORAL) Take 1,000 mg by mouth twice daily. albuterol HFA (PROAIR HFA) 90 mcg/actuation inhaler Inhale 2 Puffs as instructed every 4 hours as needed for Wheezing/Shortness of Breath. Melatonin 5 mg cap 5 mg by mouth taken 2 hours prior to bedtime (Patient taking differently: 10 mg.5 mg by mouth taken 2 hours prior to bedtime) Ascorbic Acid (VITAMIN C) 1,000 mg TbER Take by mouth. Calcium Carb-Cholecalciferol (CALCIUM 600 WITH VITAMIN D3) 600-200 mg-unit ORAL Tab Take one(1) tablet two(2) times daily. No current facility-administered medications on file prior to visit. Social History Social History Tobacco Use Smoking status: Former Packs/day: 1.50 Years: 15.00 Additional pack years: 0.00 Total pack years: 22.50 Types: Cigarettes Quit date: 07/31/2005 Years since quittin.7 Smokeless tobacco: Never Vaping Use Vaping Use: Never used Substance Use Topics Alcohol use: Yes Alcohol/week: 10.0 - 15.0 standard drinks of alcohol Types: 10 - 15 Cans of Beer (12oz) per week Comment: 5-8 beers daily Drug use: No Review of Symptoms REVIEW OF SYSTEMS SEE HPI EXAM: BP 143/73 Pulse 98 Resp 14 Wt 40.4 kg (89 lb) LMP 03/23/2007 BMI 19.26 kg/m General Appearance: Well appearing, alert, in no acute distress, well-hydrated, well nourished.. Skin: Skin color, texture, turgor normal, no suspicious rashes or lesions. Lungs: Lungs clear to auscultation. No wheezing, rhonchi, rales.. Heart: RRR without murmur, gallop, or rubs. No ectopy. Health Maintenance List Depression Screening Never done BP Controlled (<130/80) due on 11/20/2023 Mammogram Screening due on 06/11/2024 Influenza Vaccine(1) due on 05/03/2024 Bone Density Screening due on 11/13/2024 Annual PCP Team Chronic Disease Visit due on 03/26/2025 Colorectal Cancer Screening due on 06/27/2026 Diabetes Screening due on 09/23/2026 Lipid Screening due on 09/23/2028 DTaP,Tdap,Td Vaccine(3 - Td or Tdap) due on 12/18/2028 Advance Directive Discussion Completed RSV Vaccine Completed Hepatitis C Screening Completed Shingrix Vaccine Completed Pneumococcal Vaccine: 65+ Completed Alpha-1 Antitrypsin Deficiency Screening Discontinued Spirometry Discontinued Cervical Cancer Screening Discontinued Covid-19 Vaccine Discontinued ASSESSMENT/PLAN: 1. Fall (on) (from) other stairs and steps, initial encounter - ICD9: E880.9, ICD10: W10.8XXA (primary diagnosis) - XR CHEST 2V FRONTAL/LAT 2. Rib pain on right side - ICD9: 786.50, ICD10: R07.81 - Chest X-ray today. - XR CHEST 2V FRONTAL/LA Alex Brown APRN.SENIOR INFORMATICA DEVELOPER documented in this encounterPark[facility] Hospital08-[facility]24 NoteHNO ID: [id number] Author: PARKER, CHRISTINE, RN Service: ? Author Type: Registered Nurse Type: Progress Notes Filed: 04/07/2024 10:10 Note Text: [facility] Telephonic Outreach Provider Action/FYI Contacted for: Routine Telephonic Outreach Contact made with patient: Yes Patient identified by name and date of . Discussed care with patient Are you experiencing any new or worsening symptoms you need to talk about today? No Disease Specific Do you check your blood pressure at home? No Do you have new or worsening shortness of breath with activity? No Do you have new or worsening cough? No Do you have new or worsening wheezing? No Do you need to use your rescue (Albuterol) inhaler or nebulizer more often than normal? No Based on communications clerk, the following disposition is advised: No symptoms or symptoms present, not severe. Routed to: No Action Needed [place] Education Provided this Outreach: No Pt reports she is doing ok and she is not having any new or worsening cdm concerns at this time. She reports she is still having left shoulder pain where she tripped over her dog and fell down a couple of her basement steps. She saw ortho today and is going to schedule the MRI that was placed. She will contact the office with any needs. [facility] updated Christine Parker RN April 07, 2024 10:09 [facility]08-06-2024 History of Present illness Narrative* Christine Parker RN - 04/07/2024 9:59 AM EDT [facility] Telephonic Outreach Provider Action/FYI Contacted for: Routine Telephonic Outreach Contact made with patient: Yes Patient identified by name and date of . Discussed care with patient Are you experiencing any new or worsening symptoms you need to talk about today? No Disease Specific Do you check your blood pressure at home? No Do you have new or worsening shortness of breath with activity? No Do you have new or worsening cough? No Do you have new or worsening wheezing? No Do you need to use your rescue (Albuterol) inhaler or nebulizer more often than normal? No Based on communications clerk, the following disposition is advised: No symptoms or symptoms present, not severe. Routed to: No Action Needed [place] Education Provided this Outreach: No Pt reports she is doing ok and she is not having any new or worsening cdm concerns at this time. She reports she is still having left shoulder pain where she tripped over her dog and fell down a couple of her basement steps. She saw ortho today and is going to schedule the MRI that was placed. She will contact the office with any needs. [facility] updated Christine Parker RN April 07, 2024 10:09 AM documented in this encounterParkwood Hospital08-06-2024 NotePatient Outreach ([facility]) DIONY RAMIREZ ([id number]) 1955 F Date Time Provider [facility] [place] [place] During your visit today, we recorded the following information about you: Christine Parker RN 04/07/2024 10:10 AM Signed CDM Telephonic Outreach Provider Action/FYI Contacted for: Routine Telephonic Outreach Contact made with patient: Yes Patient identified by name and date of . Discussed care with patient Are you experiencing any new or worsening symptoms you need to talk about today? No Disease Specific Do you check your blood pressure at home? No Do you have new or worsening shortness of breath with activity? No Do you have new or worsening cough? No Do you have new or worsening wheezing? No Do you need to use your rescue (Albuterol) inhaler or nebulizer more often than normal? No Based on communications clerk, the following disposition is advised: No symptoms or symptoms present, not severe. Routed to: No Action Needed PAL[place] Education Provided this Outreach: No Pt reports she is doing ok and she is not having any new or worsening cdm concerns at this time. She reports she is still having left shoulder pain where she tripped over her dog and fell down a couple of her basement steps. She saw ortho today and is going to schedule the MRI that was placed. She will contact the office with any needs. [facility] updated Christine Parker RN April 07, 2024 10:09 AM Allergies As of Date: 04/07/2024 Noted Allergy Reaction FISH 06/23/2005 16 - Unknown HORSE/EQUINE CONTAINING PRODUCTS 08/30/2023 16 - Unknown LISINOPRIL 12/07/2015 3 - Cough SHELLFISH DERIVED 08/30/2023 16 - Unknown Date Reviewed: 03/26/2024 Reviewed by: Mila Kidd MA - Fully Assessed Reason for Visit: CDM [Other] Cmt: Telephonic Outreach Prescriptions as of 04/07/2024 - penicillin V potassium 500 mg tablet Take 500 mg by mouth. - omeprazole (PRILOSEC) 40 mg capsule Take 1 capsule by mouth once daily. - traZODone (DESYREL) 150 mg tablet Take 1 tablet by mouth daily at bedtime. - benzonatate (TESSALON PERLES) 100 mg capsule Take 2 capsules by mouth three times a day as needed. - baclofen 10 mg tablet Take 1 tablet by mouth three times a day as needed (muscle spasms). - amLODIPine (NORVASC) 2.5 mg tablet Take 1 tablet by mouth once daily. - hydrOXYzine HCl (ATARAX) 10 mg tablet Take 1 tablet by mouth daily at bedtime. - Benzonatate 200 mg capsule Take 1 capsule by mouth three times a day as needed. - FOLIC ACID ORAL Take by mouth as directed. - cetirizine (ZYRTEC) 10 mg tablet Take 1 tablet by mouth once daily. - acyclovir (ZOVIRAX) 400 mg tablet Take 1 tablet by mouth twice daily. - ZINC ORAL Take by mouth as directed. - SYMBICORT 160-4.5 mcg/actuation inhaler - BIOTIN ORAL Take 5,000 mcg by mouth. - ascorbic acid/collagen hydr (COLLAGEN PLUS VITAMIN C ORAL) Take 1,000 mg by mouth twice daily. - albuterol HFA (PROAIR HFA) 90 mcg/actuation inhaler Inhale 2 Puffs as instructed every 4 hours as needed for Wheezing/Shortness of Breath. - Melatonin 5 mg cap 5 mg by mouth taken 2 hours prior to bedtime - Ascorbic Acid (VITAMIN C) 1,000 mg TbER Take by mouth. - Calcium Carb-Cholecalciferol (CALCIUM 600 WITH VITAMIN D3) 600-200 mg-unit ORAL Tab Take one(1) tablet two(2) times daily. Problem List As Of Date 04/07/2024 Noted Resolved Chronic interstitial cystitis [N30.10] 04/08/2006 Adjustment disorder with depressed mood [F43.21]05/20/2006 09/21/2019 Insomnia, unspecified [G47.00] 05/20/2006 Generalized hyperhidrosis [R61] 05/20/2006 Contact dermatitis and other eczema, due to uns*02/05/2008 12/07/2015 Cervicalgia [M54.2] 07/26/2008 09/21/2019 Pain in joint, shoulder region [M25.519] 07/26/2008 03/18/2017 Manic disorder, recurrent episode, moderate (HC*08/18/2008 Contact dermatitis and other eczema due to othe*02/03/2009 12/07/2015 Disorders of bursae and tendons in shoulder reg*02/26/2009 12/07/2015 Lumbar spinal stenosis [M48.061] 08/05/2009 Climacteric [N95.1] 01/13/2010 08/07/2016 Lung mass [R91.8] 09/07/2011 09/21/2019 Postmenopausal atrophic vaginitis [N95.2] 05/01/2012 Heavy alcohol use [F10.90] 01/14/2013 Epidural abscess [G06.2] 09/16/2013 04/28/2014 Chest pain, atypical [R07.89] 12/15/2013 04/28/2014 SOB (shortness of breath) [R06.02] 12/15/2013 04/28/2014 Degenerative arthritis of lumbar spine [M47.816]05/06/2014 Arnold-Chiari malformation (HCC) [Q07.00] 09/22/2014 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] 09/22/2014 Cervical spondylosis without myelopathy [M47.81*02/21/2015 Essential hypertension, benign [I10] 02/21/2015 Emphysema of lung (HCC) [J43.9] 03/18/2015 Osteoporosis [M81.0] 09/01/2015 Overactive bladder [N32.81] 09/01/2015 HSV (herpes simplex virus) anogenital infection*02/08/2016 09/21/2019 Asthma with COPD with exacerbation (HCC) (more content not included)...[facility]08-05-2024 NoteHNO ID: [id number] Author: CHRISTINE PARKER RN Service: ? Author Type: Registered Nurse Type: Progress Notes Filed: 04/06/2024 15:29 Note Text: CD Telephonic Outreach Provider Action/FYI 1st attempt Contacted for: Routine Telephonic Outreach Contact made with patient: No, left message. Christine Parker RN April 06, 2024 3:28 [facility]08-05-2024 History of Present illness Narrative* Christine Parker RN - 04/06/2024 3:13 PM EDT [facility] Telephonic Outreach Provider Action/FYI 1st attempt Contacted for: Routine Telephonic Outreach Contact made with patient: No, left message. Christine Parker RN April 06, 2024 3:28 PM [facility] NotePatient Outreach ([facility]) DIONY RAMIREZ ([id number]) 1955 F Date Time Provider Department 04/06/24 CHRISTINE PARKER During your visit today, we recorded the following information about you: Christine Parker RN 04/06/2024 3:29 PM Signed [facility] Telephonic Outreach Provider Action/FYI 1st attempt Contacted for: Routine Telephonic Outreach Contact made with patient: No, left message. Christine Parker RN April 06, 2024 3:28 PM Allergies As of Date: 04/06/2024 Noted Allergy Reaction FISH 06/23/2005 16 - Unknown HORSE/EQUINE CONTAINING PRODUCTS 08/30/2023 16 - Unknown LISINOPRIL 12/07/2015 3 - Cough SHELLFISH DERIVED 08/30/2023 16 - Unknown Date Reviewed: 03/26/2024 Reviewed by: Mila Kidd MA - Fully Assessed Reason for Visit: CDM [Other] Cmt: Telephonic Outreach Prescriptions as of 04/06/2024 - penicillin V potassium 500 mg tablet Take 500 mg by mouth. - omeprazole (PRILOSEC) 40 mg capsule Take 1 capsule by mouth once daily. - traZODone (DESYREL) 150 mg tablet Take 1 tablet by mouth daily at bedtime. - benzonatate (TESSALON PERLES) 100 mg capsule Take 2 capsules by mouth three times a day as needed. - baclofen 10 mg tablet Take 1 tablet by mouth three times a day as needed (muscle spasms). - amLODIPine (NORVASC) 2.5 mg tablet Take 1 tablet by mouth once daily. - hydrOXYzine HCl (ATARAX) 10 mg tablet Take 1 tablet by mouth daily at bedtime. - Benzonatate 200 mg capsule Take 1 capsule by mouth three times a day as needed. - FOLIC ACID ORAL Take by mouth as directed. - cetirizine (ZYRTEC) 10 mg tablet Take 1 tablet by mouth once daily. - acyclovir (ZOVIRAX) 400 mg tablet Take 1 tablet by mouth twice daily. - ZINC ORAL Take by mouth as directed. - SYMBICORT 160-4.5 mcg/actuation inhaler - BIOTIN ORAL Take 5,000 mcg by mouth. - ascorbic acid/collagen hydr (COLLAGEN PLUS VITAMIN C ORAL) Take 1,000 mg by mouth twice daily. - albuterol HFA (PROAIR HFA) 90 mcg/actuation inhaler Inhale 2 Puffs as instructed every 4 hours as needed for Wheezing/Shortness of Breath. - Melatonin 5 mg cap 5 mg by mouth taken 2 hours prior to bedtime - Ascorbic Acid (VITAMIN C) 1,000 mg TbER Take by mouth. - Calcium Carb-Cholecalciferol (CALCIUM 600 WITH VITAMIN D3) 600-200 mg-unit ORAL Tab Take one(1) tablet two(2) times daily. Problem List As Of Date 04/06/2024 Noted Resolved Chronic interstitial cystitis [N30.10] 04/08/2006 Adjustment disorder with depressed mood [F43.21]05/20/2006 09/21/2019 Insomnia, unspecified [G47.00] 05/20/2006 Generalized hyperhidrosis [R61] 05/20/2006 Contact dermatitis and other eczema, due to uns*02/05/2008 12/07/2015 Cervicalgia [M54.2] 07/26/2008 09/21/2019 Pain in joint, shoulder region [M25.519] 07/26/2008 03/18/2017 Manic disorder, recurrent episode, moderate (HC*08/18/2008 Contact dermatitis and other eczema due to othe*02/03/2009 12/07/2015 Disorders of bursae and tendons in shoulder reg*02/26/2009 12/07/2015 Lumbar spinal stenosis [M48.061] 08/05/2009 Climacteric [N95.1] 01/13/2010 08/07/2016 Lung mass [R91.8] 09/07/2011 09/21/2019 Postmenopausal atrophic vaginitis [N95.2] 05/01/2012 Heavy alcohol use [F10.90] 01/14/2013 Epidural abscess [G06.2] 09/16/2013 04/28/2014 Chest pain, atypical [R07.89] 12/15/2013 04/28/2014 SOB (shortness of breath) [R06.02] 12/15/2013 04/28/2014 Degenerative arthritis of lumbar spine [M47.816]05/06/2014 Arnold-Chiari malformation (HCC) [Q07.00] 09/22/2014 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] 09/22/2014 Cervical spondylosis without myelopathy [M47.81*02/21/2015 Essential hypertension, benign [I10] 02/21/2015 Emphysema of lung (HCC) [J43.9] 03/18/2015 Osteoporosis [M81.0] 09/01/2015 Overactive bladder [N32.81] 09/01/2015 HSV (herpes simplex virus) anogenital infection*02/08/2016 09/21/2019 Asthma with COPD with exacerbation (HCC) [J44.1*09/05/2016 Nocturnal muscle cramps [R25.2] 09/11/2016 09/21/2019 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] 10/10/2016 09/21/2019 Carpal tunnel syndrome, right [G56.01] 01/03/2017 09/21/2019 Chronic anxiety [F41.9] 06/17/2018 Lumbar radiculopathy [M54.16] 04/19/2020 Herpes [B00.9] 01/27/2021 Ex-smoker [Z87.891] 01/27/2021 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] 01/27/2021 History of 2019 novel coronavirus disease (COVI*01/27/2021 Multiple thyroid nodules [E04.2] 01/27/2021 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] 01/27/2021 Medicare annual wellness visit, subsequent [Z00*01/27/2021 Medication management [Z79.899] 01/27/2021 Elevated blood sugar [R73.9] 01/27/2021 Abnormal toxicological findings [R89.2] 02/01/2021 Lung nodules [R91.8] 05/30/2021 GERD without esophagitis [K21.9] 09/12/2022 Living will on file at physician's office [Z78.*09/27/2022 Advance directive discussed with patient [Z71.8*09/27/2022 Ectatic thoracic aorta (HCC) [I77.810] 12/04/2022 Chronic bilateral low ba (more content not included)...[facility]07-25-2024 NoteHNO ID: [id number] Author: ALEX BROWN APRN.SENIOR INFORMATICA DEVELOPER Service: ? Author Type: Nurse Practitioner Type: Progress Notes Filed: 03/26/2024 11:48 Note Text: Chief Complaint Patient presents with: Follow Up: Left shoulder pain after fall on 03/17 HPI Diony Ramirez is a 69 year old female who presents here today for Above Complaints.. Patient presents for follow up for fall. Patient was seen 03/17 and xrays were normal. Patient reports continued pain and locking/rubbing of left shoulder joint. Does not happen with all movements but intermittently. Past medical history, appointments, medications, allergies reviewed. Previous Medical History PAST MEDICAL HISTORY Diagnosis Date Abnormal toxicological findings 02/01/2021 Tox screen 01/27/2021 showed no benzos and pos for oxycodone which patient was not on. Patient informed of no further controlled med refills. 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 Chronic anxiety 06/17/2018 Degenerative arthritis of lumbar spine 05/06/2014 Ectatic thoracic aorta (HCC) 12/04/2022 CT done 12/2022 Elevated blood sugar 01/27/2021 Emphysema of lung (HCC) 03/18/2015 Essential hypertension, benign 02/21/2015 Ex-smoker 01/27/2021 Started around 89 and quit 2004. Smoked about 1.5 PPD GERD without esophagitis 09/12/2022 Herpes 01/27/2021 History of 2019 novel coronavirus disease (COVID-19) 01/27/202106/2020 History of small bowel obstruction HSV (herpes simplex virus) anogenital infection 02/08/2016 Living will on file at physician's office 09/27/2022 DPA: Reina Denise (aunt) Lung mass 09/07/2011 Lung nodules 05/30/[address] Suleman Gustafson Medicare annual wellness visit, subsequent 01/27/2021 Medicare Part B: NA Last done: Multiple thyroid nodules 01/27/[address] Vigil and f/u was stable. Told no need for further f/u. 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 Takes mid morning. Substance agreement signed and Tox screen done 12/2020. 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 COLONOSCOPY FLX DX W/COLLJ SPEC WHEN PFRMD 08/19/2006 Repeat in COLONOSCOPY FLX DX W/COLLJ SPEC WHEN PFRMD 06/27/2016 Colonoscopy CRANIOPLASTY SKULL DEF/REPAIR/ BRAIN 09/14/2014 See scanned documents - status post ESOPHAGOGASTRODUODENOSCOPY TRANSORAL DIAGNOSTIC 06/27/2016 EGD ESOPHAGOGASTRODUODENOSCOPY TRANSORAL DIAGNOSTIC 06/30/2018 EGD IANDD ABSCESS CMPLX/MULT 07/2013 Epidural abscess- MSSA LIG/TRNSXJ FLP TUBE ABDL/VAG APPR UNI/BI Tubal ligation PAST SURGICAL HISTORY OF spinal surgery PAST SURGICAL HISTORY OF retinal detachment OD, (2 tears) PAST SURGICAL HISTORY OF 2012 back surgery STRESS TEST NUCLEAR 05/23/2021 negative Family History FAMILY HISTORY Problem Relation Age of Onset Hypertension Mother other (cerebral aneurysm) Mother Colon Polyps Father Hypertension Father COPD Father Cancer Father Bladder Cancer other (Past medical history) Father abdominal aneurysm/bladder cancer other (aortic aneurysm) Father Aneurysm Paternal Grandfather Patient Allergies ALLERGIES Allergen Reactions Fish Unknown Horse/Equine Contai* Unknown Lisinopril Cough Shellfish Derived Unknown Current Medications Current Outpatient Medications on File Prior to Visit Medication Sig penicillin V potassium 500 mg tablet Take 500 mg by mouth. omeprazole (PRILOSEC) 40 mg capsule Take 1 capsule by mouth once daily. traZODone (DESYREL) 150 mg tablet Take 1 tablet by mouth daily at bedtime. benzonatate (TESSALON PERLES) 100 mg capsule Take 2 capsules by mouth three times a day as needed. baclofen 10 mg tablet Take 1 tablet by mouth three times a day as needed (muscle spasms). amLODIPine (NORVASC) 2.5 mg tablet Take 1 tablet by mouth once daily. hydrOXYzine HCl (ATARAX) 10 mg tablet Take 1 tablet by mouth daily at bedtime. Benzonatate 200 mg capsule Take 1 capsule by mouth three times a day as needed. (Patient not taking: Reported on 10/15/2023) FOLIC ACID ORAL Take by mouth as directed. cetirizine (ZYRTEC) 10 mg tablet Take 1 tablet by mouth once daily. (Patient taking differently: Take 10 mg by mouth as needed.) acyclovir (ZOVIRAX) 400 mg tablet Take 1 tablet by mouth twice daily. ZINC ORAL Take by mouth as (more content not included)...[facility]07-25-2024 History of Present illness Narrative* Alex Brown APRN.SENIOR INFORMATICA DEVELOPER - 03/26/2024 11:39 AM EDT Chief Complaint Patient presents with: Follow Up: Left shoulder pain after fall on 03/17 HPI Diony Ramirez is a 69 year old female who presents here today for Above Complaints.. Patient presents for follow up for fall. Patient was seen 03/17 and xrays were normal. Patient reports continued pain and locking/rubbing of left shoulder joint. Does not happen with all movements butintermittently. Past medical history, appointments, medications, allergies reviewed. Previous Medical History PAST MEDICAL HISTORY Diagnosis Date Abnormal toxicological findings 02/01/2021 Tox screen 01/27/2021 showed no benzos and pos for oxycodone which patient was not on. Patient informed of no further controlled med refills. 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 Chronic anxiety 06/17/2018 Degenerative arthritis of lumbar spine 05/06/2014 Ectatic thoracic aorta ([facility]) 12/04/2022 CT done 12/2022 Elevated blood sugar 01/27/2021 Emphysema of lung ([facility]) 03/18/2015 Essential hypertension, benign 02/21/2015 Ex-smoker 01/27/2021 Started around 89 and quit 2004. Smoked about 1.5 PPD GERD without esophagitis 09/12/2022 Herpes 01/27/2021 History of 2019 novel coronavirus disease (COVID-19) 01/27/202106/2020 History of small bowel obstruction HSV (herpes simplex virus) anogenital infection 02/08/2016 Living will on file at physician's office 09/27/2022 DPA: Reina Chamorrot (aunt) Lung mass 09/07/2011 Lung nodules 05/30/[address] Suleman Gustafson Medicare annual wellness visit, subsequent 01/27/2021 Medicare Part B: NA Last done: Multiple thyroid nodules 01/27/[address] Vigil and f/u was stable. Told no need for further f/u. 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 Takes mid morning. Substance agreement signed and Tox screen done 12/2020. 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 COLONOSCOPY FLX DX W/COLLJ SPEC WHEN PFRMD 08/19/2006 Repeat in COLONOSCOPY FLX DX W/COLLJ SPEC WHEN PFRMD 06/27/2016 Colonoscopy CRANIOPLASTY SKULL DEF/REPAIR/ BRAIN 09/14/2014 See scanned documents - status post ESOPHAGOGASTRODUODENOSCOPY TRANSORAL DIAGNOSTIC 06/27/2016 EGD ESOPHAGOGASTRODUODENOSCOPY TRANSORAL DIAGNOSTIC 06/30/2018 EGD I&D ABSCESS CMPLX/MULT 07/2013 Epidural abscess- MSSA LIG/TRNSXJ FLP TUBE ABDL/VAG APPR UNI/BI Tubal ligation PAST SURGICAL HISTORY OF spinal surgery PAST SURGICAL HISTORY OF retinal detachment OD, (2 tears) PAST SURGICAL HISTORY OF 2012 back surgery STRESS TEST NUCLEAR 05/23/2021 negative Family History FAMILY HISTORY Problem Relation Age of Onset Hypertension Mother other (cerebral aneurysm) Mother Colon Polyps Father Hypertension Father COPD Father Cancer Father Bladder Cancer other (Past medical history) Father abdominal aneurysm/bladder cancer other (aortic aneurysm) Father Aneurysm Paternal Grandfather Patient Allergies ALLERGIES Allergen Reactions Fish Unknown Horse/Equine Contai* Unknown Lisinopril Cough Shellfish Derived Unknown Current Medications Current Outpatient Medications on File Prior to Visit Medication Sig penicillin V potassium 500 mg tablet Take 500 mg by mouth. omeprazole (PRILOSEC) 40 mg capsule Take 1 capsule by mouth once daily. traZODone (DESYREL) 150 mg tablet Take 1 tablet by mouth daily at bedtime. benzonatate (TESSALON PERLES) 100 mg capsule Take 2 capsules by mouth three times a day as needed. baclofen 10 mg tablet Take 1 tablet by mouth three times a day as needed (muscle spasms). amLODIPine (NORVASC) 2.5 mg tablet Take 1 tablet by mouth once daily. hydrOXYzine HCl (ATARAX) 10 mg tablet Take 1 tablet by mouth daily at bedtime. Benzonatate 200 mg capsule Take 1 capsule by mouth three times a day as needed. (Patient not taking: Reported on 10/15/2023) FOLIC ACID ORAL Take by mouth as directed. cetirizine (ZYRTEC) 10 mg tablet Take 1 tablet by mouth once daily. (Patient taking differently: Take 10 mg by mouth as needed.) acyclovir (ZOVIRAX) 400 mg tablet Take 1 tablet by mouth twice daily. ZINC ORAL Take by mouth as directed. SYMBICORT 160-4.5 mcg/actuation inhaler BIOTIN ORAL Take 5,000 mcg by mouth. ascorbic acid/collagen hydr (COLLAGEN PLUS VITAMIN C ORAL) Take 1,000 mg by mouth twice daily. albuterol HFA (PROAIR HFA) 90 mcg/actuation inhaler Inhale 2 Puffs as instructed every 4 hours as needed for Wheezing/Shortness of Breath. Melatonin 5 mg cap 5 mg by mouth taken 2 hours prior to bedtime (Patient taking differently: 10 mg.5 mg by mouth taken 2 hours prior to bedtime) Ascorbic Acid (VITAMIN C) 1,000 mg TbER Take by mouth. Calcium Carb-Cholecalciferol (CALCIUM 600 WITH VITAMIN D3) 600-200 mg-unit ORAL Tab Take one(1) tablet two(2) times daily. No current facility-administered medications on file prior to visit. Social History Social History Tobacco Use Smoking status: Former Packs/day: 1.50 Years: 15.00 Additional pack years: 0.00 Total pack years: 22.50 Types: Cigarettes Quit date: 07/31/2005 Years since quittin.6 Smokeless tobacco: Never Vaping Use Vaping Use: Never used Substance Use Topics Alcohol use: Yes Alcohol/week: 10.0 - 15.0 standard drinks of alcohol Types: 10 - 15 Cans of Beer (12oz) per week Comment: 5-8 beers daily Drug use: No Review of Symptoms REVIEW OF SYSTEMS SEE HPI EXAM: BP 150/86 Pulse 92 Resp 14 Wt 41.3 kg (91 lb) LMP 03/23/2007 BMI 19.69 kg/m General Appearance: Well appearing, alert, in no acute distress, well-hydrated, well nourished.. Extremities: Positive findings: joint location: on left shoulder pain, painful movement, loss of ROM, and injury. Health Maintenance List Depression Screening Never done BP Controlled (<130/80) due on 11/20/2023 Mammogram Screening due on 06/11/2024 Influenza Vaccine(1) due on 05/03/2024 Bone Density Screening due on 11/13/2024 Annual PCP Team Chronic Disease Visit due on 03/18/2025 Colorectal Cancer Screening due on 06/27/2026 Diabetes Screening due on 09/23/2026 Lipid Screening due on 09/23/2028 DTaP,Tdap,Td Vaccine(3 - Td or Tdap) due on 12/18/2028 Advance Directive Discussion Completed RSV Vaccine Completed Hepatitis C Screening Completed Shingrix Vaccine Completed Pneumococcal Vaccine: 65+ Completed Alpha-1 Antitrypsin Deficiency Screening Discontinued Spirometry Discontinued Cervical Cancer Screening Discontinued Covid-19 Vaccine Discontinued ASSESSMENT/PLAN: 1. Fall, initial encounter - ICD9: E888.9, ICD10: W19.XXXA (primary diagnosis) - MRI SHOULDER WO/W IVCON LEFT - IV CONTRAST (RADIOLOGY PROCEDURE) - CONSULT TO ORTHOPAEDICS 2. Acute pain of left shoulder - ICD9: 719.41, ICD10: M25.512 - MRI SHOULDER WO/W IVCON LEFT - IV CONTRAST (RADIOLOGY PROCEDURE) - CONSULT TO ORTHOPAEDICS Aelx Brown APRN.SENIOR INFORMATICA DEVELOPER documented in this encounter[facility] History of Present illness Narrative* Kandice Ryan RT(R) - 03/18/2024 11:00 AM EDT Radiology Service Progress Note PATIENT NAME: Diony Ramirez DATE OF SERVICE: March 18, 2024 TIME: 10:58 AM PATIENT IDENTITY VERIFICATION COMPLETED USING TWO (2) IDENTIFIERS: Name and Date of confirmedby patient verbally. FALL SCREENING: Has the patient had 2 falls in the last year or 1 fall with injury or currently using an Ambulatory Assistive Device (Walker, Cane, Wheelchair, Crutches, etc.)? No PATIENT GENDER DATA: Female. status: : No status: NO. PATIENT RELEVANT IMPLANT DATA REVIEWED: Not Applicable PATIENT PRESENTS WITH AN IMPLANTABLE OR ATTACHED ELECTRIC STOP INSTALLER: No RADIOLOGY DEPARTMENT: General X-ray: Exam(s) Completed: Upper Extremity X- Ray(s): Shoulder, AP / TRUE AP / AXILLARY left and Clavicle, left PERIPHERAL IV DATA: Not applicable SIGNED BY: RT Liz(R) March 18, 2024 10:58 AM documented in this encounterPark[facility]07-17-[facility]24 History of Present illness Narrative* Podlogar, ALAN Pitt.SENIOR INFORMATICA DEVELOPER - 03/18/2024 10:43 AM EDT 03/18/2024 Patient presents with: Fall SUBJECTIVE: This is a 69 year old that is here today for Above Complaints.. Yesterday missed a couple of steps in her basement. Fell and landed on concrete and thinks she hit her shoulder. Has been using some ice which hasn't helped. Shutting her door and trying to push up off the couch hurts. Denies past injury/surgery, bruising, swelling, extremity numbness, tingling or weakness PAST MEDICAL HISTORY Diagnosis Date Abnormal toxicological findings 02/01/2021 Tox screen 01/27/2021 showed no benzos and pos for oxycodone which patient was not on. Patient informed of no further controlled med refills. 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 Chronic anxiety 06/17/2018 Degenerative arthritis of lumbar spine 05/06/2014 Ectatic thoracic aorta (HCC) 12/04/2022 CT done 12/2022 Elevated blood sugar 01/27/2021 Emphysema of lung (HCC) 03/18/2015 Essential hypertension, benign 02/21/2015 Ex-smoker 01/27/2021 Started around 89 and quit 2004. Smoked about 1.5 PPD GERD without esophagitis 09/12/2022 Herpes 01/27/2021 History of 2019 novel coronavirus disease (COVID-19) 01/27/202106/2020 History of small bowel obstruction HSV (herpes simplex virus) anogenital infection 02/08/2016 Living will on file at physician's office 09/27/2022 DPA: Reina Denise (aunt) Lung mass 09/07/2011 Lung nodules 05/30/[address] Suleman Gustafson Medicare annual wellness visit, subsequent 01/27/2021 Medicare Part B: NA Last done: Multiple thyroid nodules 01/27/[address] Vigil and f/u was stable. Told no need for further f/u. 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 Takes mid morning. Substance agreement signed and Tox screen done 12/2020. tox screen abnormal and patient informed of no future controlled med scripts Retinal detachment in Right Eye Thoracic myelopathy 09/14/2014 Secondard to epidural abscess ALLERGIES Fish, Horse/Equine Containing Products, Lisinopril, and Shellfish Derived MEDICATIONS Current Outpatient Medications Medication Sig omeprazole (PRILOSEC) 40 mg capsule Take 1 capsule by mouth once daily. traZODone (DESYREL) 150 mg tablet Take 1 tablet by mouth daily at bedtime. benzonatate (TESSALON PERLES) 100 mg capsule Take 2 capsules by mouth three times a day as needed. baclofen 10 mg tablet Take 1 tablet by mouth three times a day as needed (muscle spasms). amLODIPine (NORVASC) 2.5 mg tablet Take 1 tablet by mouth once daily. hydrOXYzine HCl (ATARAX) 10 mg tablet Take 1 tablet by mouth daily at bedtime. Benzonatate 200 mg capsule Take 1 capsule by mouth three times a day as needed. (Patient not taking: Reported on 10/15/2023) FOLIC ACID ORAL Take by mouth as directed. cetirizine (ZYRTEC) 10 mg tablet Take 1 tablet by mouth once daily. (Patient taking differently: Take 10 mg by mouth as needed.) acyclovir (ZOVIRAX) 400 mg tablet Take 1 tablet by mouth twice daily. ZINC ORAL Take by mouth as directed. SYMBICORT 160-4.5 mcg/actuation inhaler BIOTIN ORAL Take 5,000 mcg by mouth. ascorbic acid/collagen hydr (COLLAGEN PLUS VITAMIN C ORAL) Take 1,000 mg by mouth twice daily. albuterol HFA (PROAIR HFA) 90 mcg/actuation inhaler Inhale 2 Puffs as instructed every 4 hours as needed for Wheezing/Shortness of Breath. Melatonin 5 mg cap 5 mg by mouth taken 2 hours prior to bedtime (Patient taking differently: 10 mg.5 mg by mouth taken 2 hours prior to bedtime) Ascorbic Acid (VITAMIN C) 1,000 mg TbER Take by mouth. Calcium Carb-Cholecalciferol (CALCIUM 600 WITH VITAMIN D3) 600-200 mg-unit ORAL Tab Take one(1) tablet two(2) times daily. No current facility-administered medications for this visit. Medications and allergies reviewed by this provider. SOCIAL HISTORY Social History Tobacco Use Smoking status: Former Packs/day: 1.50 Years: 15.00 Additional pack years: 0.00 Total pack years: 22.50 Types: Cigarettes Quit date: 07/31/2005 Years since quittin.6 Smokeless tobacco: Never Vaping Use Vaping Use: Never used Substance Use Topics Alcohol use: Yes Alcohol/week: 10.0 - 15.0 standard drinks of alcohol Types: 10 - 15 Cans of Beer (12oz) per week Comment: 5-8 beers daily Drug use: No REVIEW OF SYSTEMS All other reviewed and negative other than HPI. OBJECTIVE: BP 142/76 Pulse 79 Temp 37.2 C (98.9 F) Resp 18 Wt 41.7 kg (92 lb) LMP 03/23/2007 SpO2 94% BMI 19.91 kg/m . Vital signs reviewed by this provider. APPEARANCE Well appearing, alert, in no acute distress, well-hydrated, well nourished. LEFT SHOULDER: No obvious deformity, erythema, ecchymosis, or swelling. TTP over clavicle. FROM without difficulty. Negative [facility] Scre[facility] Never done BP Controlled (<130/80) due on 11/20/2023 Mammogram Screening due on 06/11/2024 Influenza Vaccine(1) due on 05/03/2024 Bone Density Screening due on 11/13/2024 Annual PCP Team Chronic Disease Visit due on 03/18/2025 Colorectal Cancer Screening due on 06/27/2026 Diabetes Screening due on 09/23/2026 Lipid Screening due on 09/23/2028 DTaP,Tdap,Td Vaccine(3 - Td or Tdap) due on 12/18/2028 Advance Directive Discussion Completed RSV Vaccine Completed Hepatitis C Screening Completed Shingrix Vaccine Completed Pneumococcal Vaccine: 65+ Completed Alpha-1 Antitrypsin Deficiency Screening Discontinued Spirometry Discontinued Cervical Cancer Screening Discontinued Covid-19 Vaccine Discontinued ASSESSMENT/PLAN: 1. Fall, initial encounter - ICD9: E888.9, ICD10: W19.XXXA (primary diagnosis) - no red flag symptoms or exam findings - red flag symptoms discussed, verbalizes understanding - XR CLAVICLE 2V LEFT - XR SHOULDER GENERAL 3V OR MORE AP/TRUE AP/OTHER LEFT -may use ice, heat and OTC oral and topical pain relievers as directed on packaging - follow-up if symptoms fail to improve to ER with red flag symptoms 2. Pain of left clavicle - ICD9: 733.90, ICD10: M89.8X1 - plan as in #1 - XR CLAVICLE 2V LEFT 3. Acute pain of left shoulder - ICD9: 719.41, ICD10: M25.512 - plan as in #1 - XR SHOULDER GENERAL 3V OR MORE AP/TRUE AP/OTHER LEFT Sweetie Romeo APRN.LUIS FELIPE Prescription instructions reviewed with patient as applicable. Patient advised if symptoms do not improve or if symptoms worsen sooner, to contact their primary care physician. Potential red flag symptoms discussed with the patient. Reviewed appropriate action plan to take if red flag symptoms occur. Patient agreeable to treatment plan. Medical Decision Making: Problems: Low: Acute, uncomplicated illness or injury Data: Unique test(s) ordered: 2 Risk: Low: Low risk from testing/treatment Medical Decision Making Level: 3 - Low documented in [facility] encounter[facility] Telephone encounter Note * Telephone Encounter - Ruth Foster - 03/16/2024 8:23 AM EDT Prescription Refill Information The patient has been identified by name and date of : Yes Caregiver verified no other encounters exist for this prescription request: Yes Caregiver confirmed with patient/requestor that no other refills are due, in the near future, with this provider at this time: Yes The last office visit in the department: 10/15/23 Does the patient have a future office visit with this provider/department: Yes Requested Prescriptions Pending Prescriptions Disp Refills omeprazole (PRILOSEC) 40 mg capsule 90 capsule 3 Sig: Take 1 capsule by mouth once daily. traZODone (DESYREL) 150 mg tablet 90 tablet 1 Sig: Take 1 tablet by mouth daily at bedtime. Ruth Kirkland March 16, 2024 8:23 AM [facility]07-[facility] Miscellaneous Notes* Telephone Encounter - Ruth Foster - 03/16/2024 8:23 AM EDT Prescription Refill Information The patient has been identified by name and date of : Yes Caregiver verified no other encounters exist for this prescription request: Yes Caregiver confirmed with patient/requestor that no other refills are due, in the near future, with this provider at this time: Yes The last office visit in the department: 10/15/23 Does the patient have a future office visit with this provider/department: Yes Requested Prescriptions Pending Prescriptions Disp Refills omeprazole (PRILOSEC) 40 mg capsule 90 capsule 3 Sig: Take 1 capsule by mouth once daily. traZODone (DESYREL) 150 mg tablet 90 tablet 1 Sig: Take 1 tablet by mouth daily at bedtime. Ruth Kirkland March 16, 2024 8:23 AM documented in this encounterPark[facility]07-10-[facility]24 History of Present illness Narrative* Ashleigh Johnson MA - 03/11/2024 3:44 PM EDT [facility] NAVIGATION OUTREACH Action/FYI CDM PCP appt for bruising on the Left wrist Left VM; MyChart message sent Postponed 2 days Reason for Outreach Community Monitoring/Network Navigator Pools & Phone Line: CDM Patient Contacted: Unable or unnecessary to reach patient: Left message MyChart message sent Navigation Signature: Ashleigh Johnson MA March 11, 2024 3:44 PM * Christine Parker RN - 03/11/2024 3:25 PM EDT CDM Telephonic Outreach Provider Action/FYI Navigators please assist pt with scheduling appt with pcp office for bruising on the Left wrist only per pt request Contacted for: Routine Telephonic Outreach Contact made with patient: Yes Patient identified by name and date of . Discussed care with patient Are you experiencing any new or worsening symptoms you need to talk about today? No Disease Specific Do you check your blood pressure at home? No Do you have new or worsening shortness of breath with activity? No Do you have new or worsening cough? No Do you have new or worsening wheezing? No Do you need to use your rescue (Albuterol) inhaler or nebulizer more often than normal? No Based on communications clerk, the following disposition is advised: No symptoms or symptoms present, not severe. Routed to: Navigation Team: PCP visit within 7 days [facility] Education Provided this Outreach: No Pt reports she is doing ok and she is not having any new or worsening cdm concerns at this time. She is complaining of pain in her shoulders she states the pain injections are not working any longer.She is stating she needs some pain medications. I asked her if she's contacted her pain provider and she said she has an appt with them next week and she will talk to them then about it. She is also stating on her left wrist she has about a 4 in by 2 in what looks like a bruise she states this has been happening for years and she has seen a [employer]itter for it who told her it was from aging and being out in the sun. She states it looks like she is on blood thinners but she isn't. She states this only happens on her left wrist nowhere else on the body besides occasionally she will get a smallspot on the right wrist. She is currently using a cream called Dermed which was suggested by Dermatology. Pt thinks she is lacking some vitamin or something and is requesting an appt with pcp to disucuss. I will send a message to our navigation team to assist her with scheduling with pcp office. Pt will contact the office with any additional needs. Christine Parker RN March 11, 2024 3:26 PM documented in this encounterCleveland [id number] History of Present illness Narrative* Christine Parker RN - 02/12/2024 12:06 PM EDT [facility] Telephonic Outreach Provider Action/FYI Contacted for: Routine Telephonic Outreach Contact made with patient: Yes Patient identified by name and date of . Discussed care with patient Are you experiencing any new or worsening symptoms you need to talk about today? No Disease Specific Do you check your blood pressure at home? Yes, Enter readings: once in awhile Do you have new or worsening shortness of breath with activity? No Do you have new or worsening cough? No Do you have new or worsening wheezing? No Do you need to use your rescue (Albuterol) inhaler or nebulizer more often than normal? No Based on communications clerk, the following disposition is advised: No symptoms or symptoms present, not severe. Routed to: No Action Needed [facility] Education Provided this Outreach: No Pt reports she is doing ok and she is not having any new or worsening cdm concerns at this time. She will contact the office with any needs. Christine Parker RN February 12, 2024 12:06 PM documented in this encounterPark[facility]05-15-[facility]24 History of Present illness Narrative* Chirstine Parker RN - 01/15/2024 9:03 AM EDT [facility] Telephonic Outreach Provider Action/FYI Contacted for: Routine Telephonic Outreach Contact made with patient: Yes Patient identified by name and date of . Discussed care with patient Are you experiencing any new or worsening symptoms you need to talk about today? No Disease Specific Do you check your blood pressure at home? No Do you have new or worsening shortness of breath with activity? No Do you have new or worsening cough? No but still has a cough that she has had for over a month Do you have new or worsening wheezing? No Do you need to use your rescue (Albuterol) inhaler or nebulizer more often than normal? No Based on communications clerk, the following disposition is advised: No symptoms or symptoms present, not severe. Routed to: No Action Needed [facility] Education Provided this Outreach: No Pt reports she is doing ok she states she still has a cough from where she was sick over a month ago and treated with prednisone twice and a couple different antibiotics. She states she is feeling better now but still not 100% but doesn't know if she will ever be a 100% what she use to be. She reports since having covid in 2019 she seems to get sick quicker and it lasts longer. She states she was told she has [employer] Hauler. She reports she was using her inhaler and nebulizer treatments but isno longer using them now. I offered to have our navigation team reach out to assist her with scheduling a follow up appt with pcp and pt declined and states no that isn't necessary. She will contact the office with any additional needs or concerns. Christine Parker RN January 15, 2024 9:04 AM documented in this encounterParkwood [facility]05-14-[facility]24 History of Present illness Narrative* Christine Parker RN - 01/14/2024 12:41 PM EDT [facility] Telephonic Outreach Provider Action/FYI 1st attempt Contacted for: Routine Telephonic Outreach Contact made with patient: No, left message. Christine Parker RN January 14, 2024 12:41 PM documented in this encounterParkwood [facility]05-02-[facility]24 History of Present illness Narrative* Kami Salas MA - 01/02/2024 10:46 AM EDT [facility] - CT Scan [ID [id number]] documented in this encounterParkwood Hospital05-01-2024 Telephone encounter Note * Telephone Encounter - Kasey Becker LPN - 01/01/2024 9:13 AM EDT Patient returned call and went over results, notes from Dr Camp with understanding. [facility] Miscellaneous Notes* Telephone Encounter - Kasey Becker LPN - 01/01/2024 9:13 AM EDT Patient returned call and went over results, notes from Dr Camp with understanding. * Telephone Encounter - Aury Newton MA - 01/01/2024 8:23 AM EDT Left message for patient to contact office. Aury Newton MA * Telephone Encounter - Rito Camp MD - 12/31/2023 8:50 PM EDT Let patient know US of heart was ok documented in this encounterParkwood Hospital05-01-2024 Telephone encounter Note * Telephone Encounter - Aury Newton MA - 01/01/2024 8:23 AM EDT Left message for patient to contact office. Aury Newton MA [facility]-30[facility] Telephone encounter Note* Telephone Encounter - Rito Camp MD - 12/31/2023 8:50 PM EDT Let patient know US of heart was ok [facility]04-22-[facility] Telephone encounter Note* Telephone Encounter - Good Silva RN - 12/23/2023 2:48 PM EDT Patient phoned looking for CXR results. States she is not good at her [facility]. Given provider's message below with verbalized understanding. [facility] Miscellaneous Notes* Telephone Encounter - Good Silva RN - 12/23/2023 2:48 PM EDT Patient phoned looking for CXR results. States she is not good at her [facility]. Given provider's message below with verbalized understanding. documented in this encounterParkwood Hospital04-22-2024 History of Present illness Narrative* Fina Farias RT(R) - 12/23/2023 10:20 AM EDT Radiology Service Progress Note PATIENT NAME: Diony Ramirez DATE OF SERVICE: December 23, 2023 TIME: 10:49 AM PATIENT IDENTITY VERIFICATION COMPLETED USING TWO (2) IDENTIFIERS: Name and Date of confirmedby patient verbally. FALL SCREENING: Has the patient had 2 falls in the last year or 1 fall with injury or currently using an Ambulatory Assistive Device (Walker, Cane, Wheelchair, Crutches, etc.)? No PATIENT GENDER DATA: Female. status: : No status: NO. PATIENT RELEVANT IMPLANT DATA REVIEWED: Yes PATIENT PRESENTS WITH AN IMPLANTABLE OR ATTACHED ELECTRIC STOP INSTALLER: No RADIOLOGY DEPARTMENT: General X-ray: Exam(s) Completed: Chest X-Ray PERIPHERAL IV DATA: Not applicable SIGNED BY: RT Vega(R) December 23, 2023 10:49 AM documented in this encounterParkwood Hospital04-22-2024 History of Present illness Narrative* Mary Ann Sherman APRN.LUIS FELIPE - 12/23/2023 10:00 AM EDT This note was created using NoteWriter. Subjective Diony Ramirez is a 68 year old female. 68 year old female with PMH HTN, asthma with COPD, GERD, emphysema, presents for illness. Acute onset 4 days ago Patient presents with cough, shortness of breath, productive cough and chest tightness +sneezing +nasal congestion Denies ear pain. Denies fever. Denies N/V/D She denies vomiting or diarrhea. She has been using Symbicort and her albuterol inhaler Of note she was here yesterday, and declined COVID testing. Treated for COPD exacerbation. She presents today requesting to be COVID tested Not sure why I declined yesterday The history is provided by the patient. No valve inserter was used. Cough This is a new problem. The current episode started more than 2 days ago. The problem occurs constantly. The problem has been gradually worsening. The cough is Non-productive. There has been no fever.Associated symptoms include chills, rhinorrhea, shortness of breath and wheezing. Pertinent negatives include no chest pain, no sweats, no weight loss, no ear congestion, no ear pain, no headaches, no sore throat, no myalgias and no eye redness. Treatments tried: Prednisone, Tessalon Perles. She isnot a smoker (quit 9 years ago). Her past medical history is significant for COPD and asthma. Her past medical history does not include bronchitis, pneumonia, bronchiectasis or emphysema. PAST MEDICAL HISTORY Diagnosis Date Abnormal toxicological findings 02/01/2021 Tox screen 01/27/2021 showed no benzos and pos for oxycodone which patient was not on. Patient informed of no further controlled med refills. 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 Chronic anxiety 06/17/2018 Degenerative arthritis of lumbar spine 05/06/2014 Ectatic thoracic aorta (HCC) 12/04/2022 CT done 12/2022 Elevated blood sugar 01/27/2021 Emphysema of lung ([facility]) 03/18/2015 Essential hypertension, benign 02/21/2015 Ex-smoker 01/27/2021 Started around 89 and quit 2004. Smoked about 1.5 PPD GERD without esophagitis 09/12/2022 Herpes 01/27/2021 History of 2019 novel coronavirus disease (COVID-19) 01/27/202106/2020 History of small bowel obstruction HSV (herpes simplex virus) anogenital infection 02/08/2016 Living will on file at physician's office 09/27/2022 DPA: Reina Denise (aunt) Lung mass 09/07/2011 Lung nodules 05/30/[address] Suleman Gustafson Medicare annual wellness visit, subsequent 01/27/2021 Medicare Part B: NA Last done: Multiple thyroid nodules 01/27/[address] Vigil and f/u was stable. Told no need for further f/u. 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 Takes mid morning. Substance agreement signed and Tox screen done 12/2020. 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 COLONOSCOPY FLX DX W/COLLJ SPEC WHEN PFRMD 08/19/2006 Repeat in COLONOSCOPY FLX DX W/COLLJ SPEC WHEN PFRMD 06/27/2016 Colonoscopy CRANIOPLASTY SKULL DEF/REPAIR/ BRAIN 09/14/2014 See scanned documents - status post ESOPHAGOGASTRODUODENOSCOPY TRANSORAL DIAGNOSTIC 06/27/2016 EGD ESOPHAGOGASTRODUODENOSCOPY TRANSORAL DIAGNOSTIC 06/30/2018 EGD I&D ABSCESS CMPLX/MULT 07/2013 Epidural abscess- MSSA LIG/TRNSXJ FLP TUBE ABDL/VAG APPR UNI/BI Tubal ligation PAST SURGICAL HISTORY OF spinal surgery PAST SURGICAL HISTORY OF 2/307 retinal detachment OD, (2 tears) PAST SURGICAL HISTORY OF 2012 back surgery STRESS TEST NUCLEAR 05/23/2021 negative ALLERGIES Fish, Horse/Equine Containing Products, Lisinopril, and Shellfish Derived MEDICATIONS predniSONE (DELTASONE) 20 mg tablet Take 2 tablets by mouth once daily for 5 days. benzonatate (TESSALON PERLES) 100 mg capsule Take 2 capsules by mouth three times a day as needed. azithromycin (ZITHROMAX) 250 mg tablet Take 2 tablets by mouth once daily for 1 day, THEN 1 tablet once daily for 4 days. baclofen 10 mg tablet Take 1 tablet by mouth three times a day as needed (muscle spasms). amLODIPine (NORVASC) 2.5 mg tablet Take 1 tablet by mouth once daily. hydrOXYzine HCl (ATARAX) 10 mg tablet Take 1 tablet by mouth daily at bedtime. traZODone (DESYREL) 150 mg tablet Take 1 tablet by mouth daily at bedtime. FOLIC ACID ORAL Take by mouth as directed. cetirizine (ZYRTEC) 10 mg tablet Take 1 tablet by mouth once daily. (Patient taking differently: Take 10 mg by mouth as needed.) omeprazole (PRILOSEC) 40 mg capsule Take 1 capsule by mouth once daily. acyclovir (ZOVIRAX) 400 mg tablet Take 1 tablet by mouth twice daily. ZINC ORAL Take by mouth as directed. SYMBICORT 160-4.5 mcg/actuation inhaler BIOTIN ORAL Take 5,000 mcg by mouth. ascorbic acid/collagen hydr (COLLAGEN PLUS VITAMIN C ORAL) Take 1,000 mg by mouth twice daily. albuterol HFA (PROAIR HFA) 90 mcg/actuation inhaler Inhale 2 Puffs as instructed every 4 hours as needed for Wheezing/Shortness of Breath. Melatonin 5 mg cap 5 mg by mouth taken 2 hours prior to bedtime (Patient taking differently: 10 mg.5 mg by mouth taken 2 hours prior to bedtime) Ascorbic Acid (VITAMIN C) 1,000 mg TbER Take by mouth. Calcium Carb-Cholecalciferol (CALCIUM 600 WITH VITAMIN D3) 600-200 mg-unit ORAL Tab Take one(1) tablet two(2) times daily. Benzonatate 200 mg capsule Take 1 capsule by mouth three times a day as needed. (Patient not taking: Reported on 10/15/2023) FAMILY HISTORY Problem Relation Age of Onset Hypertension Mother other (cerebral aneurysm) Mother Colon Polyps Father Hypertension Father COPD Father Cancer Father Bladder Cancer other (Past medical history) Father abdominal aneurysm/bladder cancer other (aortic aneurysm) Father Aneurysm Paternal Grandfather Social History Tobacco Use Smoking status: Former Packs/day: 1.50 Years: 15.00 Additional pack years: 0.00 Total pack years: 22.50 Types: Cigarettes Quit date: 07/31/2005 Years since quittin.4 Smokeless tobacco: Never Vaping Use Vaping Use: Never used Substance Use Topics Alcohol use: Yes Alcohol/week: 10.0 - 15.0 standard drinks of alcohol Types: 10 - 15 Cans of Beer (12oz) per week Comment: 5-8 beers daily Drug use: No Review of Systems Constitutional: Positive for chills and fatigue. Negative for weight loss. HENT: Positive for congestion, rhinorrhea and sneezing. Negative for ear pain and sore throat. Eyes: Negative for pain, discharge, redness and itching. Respiratory: Positive for cough, shortness of breath and wheezing. Cardiovascular: Negative for chest pain. Gastrointestinal: Negative for abdominal pain, diarrhea, nausea and vomiting. Musculoskeletal: Negative for arthralgias, back pain and myalgias. Skin: Negative for color change, pallor, rash and wound. Allergic/Immunologic: Negative for environmental allergies, food allergies and immunocompromised state. Neurological: Negative for dizziness, facial asymmetry, light-headedness and headaches. Hematological: Negative for adenopathy. Does not bruise/bleed easily. Psychiatric/Behavioral: Negative for agitation and behavioral problems. Objective BP 122/86 Pulse 105 Temp 37.3 C (99.1 F) Resp 21 Wt 41.4 kg (91 lb 4.3 oz) LMP 03/23/2007 SpO2 93% BMI 19.75 kg/m Physical Exam Vitals and nursing note reviewed. Constitutional: General: She is not in acute distress. Appearance: Normal appearance. She is normal weight. She is not ill-appearing, toxic-appearing or diaphoretic. HENT: Head: Normocephalic and atraumatic. Right Ear: Ear canal and external ear normal. Left Ear: Ear canal and external ear normal. Nose: Congestion present. No rhinorrhea. Mouth/Throat: Mouth: Mucous membranes are moist. Pharynx: No oropharyngeal exudate or posterior oropharyngeal erythema. Eyes: General: Right eye: No discharge. Left eye: No discharge. Extraocular Movements: Extraocular movements intact. Conjunctiva/sclera: Conjunctivae normal. Pupils: Pupils are equal, round, and reactive to light. Cardiovascular: Rate and Rhythm: Normal rate and regular rhythm. Pulses: Normal pulses. Heart sounds: Normal heart sounds. No murmur heard. No friction rub. Pulmonary: Effort: Pulmonary effort is normal. No respiratory distress. Breath sounds: No stridor. Wheezing (exp wheeze noted.) present. No rhonchi or rales. Chest: Chest wall: No tenderness. Abdominal: General: Abdomen is flat. There is no distension. Palpations: Abdomen is soft. There is no mass. Tenderness: There is no abdominal tenderness. There is no right CVA tenderness, left CVA tenderness, guarding or rebound. Hernia: No hernia is present. Musculoskeletal: General: No swelling, tenderness, deformity or signs of injury. Normal range of motion. Cervical back: Normal range of motion and neck supple. No rigidity. Right lower leg: No edema. Left lower leg: No edema. Lymphadenopathy: Cervical: Cervical adenopathy present. Skin: General: Skin is warm and dry. Capillary Refill: Capillary refill takes less than 2 seconds. Coloration: Skin is not jaundiced or pale. Findings: No bruising, erythema, lesion or rash. Neurological: General: No focal deficit present. Mental Status: She is alert and oriented to person, place, and time. Cranial Nerves: No cranial nerve deficit. Sensory: No sensory deficit. Motor: No weakness. Coordination: Coordination normal. Gait: Gait normal. Psychiatric: Mood and Affect: Mood normal. Behavior: Behavior normal. Thought Content: Thought content normal. Judgment: Judgment normal. Assessment and Plan ASSESSMENT/PLAN: 1. URI, acute - ICD9: 465.9, ICD10: J06.9 (primary diagnosis) Seen yesterday for same Presents requesting COVID testing - Discussed viral etiology and rationale for treatment. - Symptomatic treatment with prn analgesia - Supportive care with fluids and rest - XR CHEST 2V FRONTAL/LAT - COVID & INFLUENZA A/B & RSV NAAT, ROUTINE 2. COPD with exacerbation (HCC) - ICD9: 491.21, ICD10: J44.1 Seen and evaluated for same yesterday Continue the ATB, Prednisone and Tessalon CXR negative Follow up with PCP for same Mary Ann Sherman APRN.SENIOR INFORMATICA DEVELOPER documented in this encounterPark[facility]04-[facility] History of Present illness Narrative* Teresa Handley PA-C - 12/22/2023 10:44 AM EDT This note was created using [employer]. Subjective Diony Ramirez is a 68 year old female. HPI Patient presents with cough, shortness of breath, productive cough and chest tightness for the past3 days. She has not had a fever. She feels like her COPD is flared up. She has been around a lot ofpeople recently but denies any known sick contacts. She denies vomiting or diarrhea. She has been sneezing and had some nasal congestion. No ear pain. She has been using Symbicort and her albuterol inhaler Review of Systems Constitutional: Negative. HENT: Positive for congestion and sneezing. Negative for ear pain and sore throat. Eyes: Negative. Respiratory: Positive for cough, chest tightness, shortness of breath and wheezing. Cardiovascular: Negative. Gastrointestinal: Negative. Genitourinary: Negative. Musculoskeletal: Negative. Neurological: Negative. All other systems reviewed and are negative. PAST MEDICAL HISTORY Diagnosis Date Abnormal toxicological findings 02/01/2021 Tox screen 01/27/2021 showed no benzos and pos for oxycodone which patient was not on. Patient informed of no further controlled med refills. 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 Chronic anxiety 06/17/2018 Degenerative arthritis of lumbar spine 05/06/2014 Ectatic thoracic aorta (HCC) 12/04/2022 CT done 12/2022 Elevated blood sugar 01/27/2021 Emphysema of lung (HCC) 03/18/2015 Essential hypertension, benign 02/21/2015 Ex-smoker 01/27/2021 Started around 89 and quit 2004. Smoked about 1.5 PPD GERD without esophagitis 09/12/2022 Herpes 01/27/2021 History of 2019 novel coronavirus disease (COVID-19) 01/27/202106/2020 History of small bowel obstruction HSV (herpes simplex virus) anogenital infection 02/08/2016 Living will on file at physician's office 09/27/2022 DPA: Reina Denise (aunt) Lung mass 09/07/2011 Lung nodules 05/30/[address] Suleman Gustafson Medicare annual wellness visit, subsequent 01/27/2021 Medicare Part B: NA Last done: Multiple thyroid nodules 01/27/[address] Vigil and f/u was stable. Told no need for further f/u. 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 Takes mid morning. Substance agreement signed and Tox screen done 12/2020. tox screen abnormal and patient informed of no future controlled med scripts Retinal detachment in Right Eye Thoracic myelopathy 09/14/2014 Secondard to epidural abscess Current Outpatient Medications Medication Sig Dispense Refill baclofen 10 mg tablet Take 1 tablet by mouth three times a day as needed (muscle spasms). 30 tablet0 amLODIPine (NORVASC) 2.5 mg tablet Take 1 tablet by mouth once daily. 90 tablet 3 hydrOXYzine HCl (ATARAX) 10 mg tablet Take 1 tablet by mouth daily at bedtime. 90 tablet 3 traZODone (DESYREL) 150 mg tablet Take 1 tablet by mouth daily at bedtime. 90 tablet 1 FOLIC ACID ORAL Take by mouth as directed. cetirizine (ZYRTEC) 10 mg tablet Take 1 tablet by mouth once daily. (Patient taking differently: Take 10 mg by mouth as needed.) 90 tablet 0 omeprazole (PRILOSEC) 40 mg capsule Take 1 capsule by mouth once daily. 90 capsule 3 acyclovir (ZOVIRAX) 400 mg tablet Take 1 tablet by mouth twice daily. 180 tablet 3 ZINC ORAL Take by mouth as directed. SYMBICORT 160-4.5 mcg/actuation inhaler BIOTIN ORAL Take 5,000 mcg by mouth. ascorbic acid/collagen hydr (COLLAGEN PLUS VITAMIN C ORAL) Take 1,000 mg by mouth twice daily. albuterol HFA (PROAIR HFA) 90 mcg/actuation inhaler Inhale 2 Puffs as instructed every 4 hours as needed for Wheezing/Shortness of Breath. 3 Inhaler 3 Melatonin 5 mg cap 5 mg by mouth taken 2 hours prior to bedtime (Patient taking differently: 10 mg.5 mg by mouth taken 2 hours prior to bedtime) 180 capsule 3 Ascorbic Acid (VITAMIN C) 1,000 mg TbER Take by mouth. Calcium Carb-Cholecalciferol (CALCIUM 600 WITH VITAMIN D3) 600-200 mg-unit ORAL Tab Take one(1) tablet two(2) times daily. 0 predniSONE (DELTASONE) 20 mg tablet Take 2 tablets by mouth once daily for 5 days. 10 tablet 0 benzonatate (TESSALON PERLES) 100 mg capsule Take 2 capsules by mouth three times a day as needed. 30 capsule 0 azithromycin (ZITHROMAX) 250 mg tablet Take 2 tablets by mouth once daily for 1 day, THEN 1 tablet once daily for 4 days. 6 tablet 0 Benzonatate 200 mg capsule Take 1 capsule by mouth three times a day as needed. (Patient not taking: Reported on 10/15/2023) 45 capsule 1 No current facility-administered medications for this visit. PAST SURGICAL HISTORY Procedure Laterality Date 2D ECHO (EXEP) 05/23/2021 EF=65%, 1+TI. COLONOSCOPY FLX DX W/COLLJ SPEC WHEN PFRMD 08/19/2006 Repeat in COLONOSCOPY FLX DX W/COLLJ SPEC WHEN PFRMD 06/27/2016 Colonoscopy CRANIOPLASTY SKULL DEF/REPAIR/ BRAIN 09/14/2014 See scanned documents - status post ESOPHAGOGASTRODUODENOSCOPY TRANSORAL DIAGNOSTIC 06/27/2016 EGD ESOPHAGOGASTRODUODENOSCOPY TRANSORAL DIAGNOSTIC 06/30/2018 EGD I&D ABSCESS CMPLX/MULT 07/2013 Epidural abscess- MSSA LIG/TRNSXJ FLP TUBE ABDL/VAG APPR UNI/BI Tubal ligation PAST SURGICAL HISTORY OF spinal surgery PAST SURGICAL HISTORY OF retinal detachment OD, (2 tears) PAST SURGICAL HISTORY OF 2012 back surgery STRESS TEST NUCLEAR 05/23/2021 negative FAMILY HISTORY Problem Relation Age of Onset Hypertension Mother other (cerebral aneurysm) Mother Colon Polyps Father Hypertension Father COPD Father Cancer Father Bladder Cancer other (Past medical history) Father abdominal aneurysm/bladder cancer other (aortic aneurysm) Father Aneurysm Paternal Grandfather Social History Tobacco Use Smoking status: Former Packs/day: 1.50 Years: 15.00 Additional pack years: 0.00 Total pack years: 22.50 Types: Cigarettes Quit date: 07/31/2005 Years since quittin.4 Smokeless tobacco: Never Vaping Use Vaping Use: Never used Substance Use Topics Alcohol use: Yes Alcohol/week: 10.0 - 15.0 standard drinks of alcohol Types: 10 - 15 Cans of Beer (12oz) per week Comment: 5-8 beers daily Drug use: No Objective BP 131/78 Pulse 96 Temp 37.2 C (98.9 F) Resp 22 Wt 41 kg (90 lb 6.2 oz) LMP 03/23/2007 SpO2 96% BMI 19.56 kg/m Physical Exam Vitals reviewed. Constitutional: Appearance: Normal appearance. HENT: Head: Normocephalic and atraumatic. Right Ear: Tympanic membrane, ear canal and external ear normal. Left Ear: Tympanic membrane, ear canal and external ear normal. Nose: Congestion present. Mouth/Throat: Mouth: Mucous membranes are moist. Pharynx: Oropharynx is clear. Cardiovascular: Rate and Rhythm: Normal rate and regular rhythm. Heart sounds: Normal heart sounds. Pulmonary: Effort: Pulmonary effort is normal. Breath sounds: Wheezing present. Musculoskeletal: Cervical back: Neck supple. Skin: General: Skin is warm and dry. Findings: No rash. Neurological: General: No focal deficit present. Mental Status: She is alert and oriented to person, place, and time. Assessment and Plan ASSESSMENT/PLAN: 1. COPD with exacerbation (HCC) - ICD9: 491.21, ICD10: J44.1 Will treat with prednisone, Tessalon and doxycycline. Patient declined COVID testing. Follow-up with PCP if not improving. Patient agreeable.. Teresa Handley PA-C documented in this encounterPark[facility]04-16-[facility]24 History of Present illness Narrative* Christine Parker RN - 12/17/2023 12:11 PM EDT CDM Telephonic Outreach Provider Action/FYI 2nd attempt Contacted for: Routine Telephonic Outreach Contact made with patient: No, left message. Christine Parker RN December 17, 2023 12:12 PM documented in this encounterPark[facility]04-15-2024 History of Present illness Narrative* Christine Parker RN - 12/16/2023 3:04 PM EDT CDM Telephonic Outreach Provider Action/FYI 1st attempt Contacted for: Routine Telephonic Outreach Contact made with patient: No, left message. Christine Parker RN December 16, 2023 3:04 PM documented in this encounterPark[facility]03-18-2024 History of Present illness Narrative* Christine Parker RN - 11/18/2023 3:28 PM EDT CDM Telephonic Outreach Provider Action/FYI Contacted for: Routine Telephonic Outreach Contact made with patient: Yes Patient identified by name and date of . Discussed care with patient Are you experiencing any new or worsening symptoms you need to talk about today? No Disease Specific Do you check your blood pressure at home? No Do you have new or worsening shortness of breath with activity? No Do you have new or worsening cough? No Do you have new or worsening wheezing? No Do you need to use your rescue (Albuterol) inhaler or nebulizer more often than normal? No Based on communications clerk, the following disposition is advised: No symptoms or symptoms present, not severe. Routed to: No Action Needed [place] Education Provided this Outreach: No Pt reports she is doing fine and she is not having any new or worsening cdm concerns at this time. She will contact the office with any needs. Christine Parker RN November 18, 2023 3:29 PM documented in this encounterPark[facility] Hospital03-08-2024 Miscellaneous Notes* Telephone Encounter - Rito Camp MD - 11/08/2023 10:59 AM EST Noted. * Telephone Encounter - Albania Gill RN - 11/08/2023 10:14 AM EST Janine from [facility] calls and state that patient had called them and was adamant that they order ct scan of chest. CT Scan of chest was ordered for patient. Patient wanted provider aware that testing was ordered so that provider did not order testing. Albania Gill, RN documented in this encounterParkwood Hospital02-20-2024 History of Present illness Narrative* Christine Parker RN - 10/22/2023 9:42 AM EST [facility] Telephonic Outreach Provider Action/FYI 2nd attempt Contacted for: Routine Telephonic Outreach Contact made with patient: No, left message. Christine Parker RN October 22, 2023 9:42 AM documented in this encounterPark[facility]02-19-2024 History of Present illness Narrative* Christine Parker RN - 10/21/2023 2:58 PM EST [facility] Telephonic Outreach Provider Action/FYI 1st attempt Contacted for: Routine Telephonic Outreach Contact made with patient: No, left message. Christine Parker RN October 21, 2023 2:58 PM documented in this encounterParkwood Hospital02-14-2024 Miscellaneous Notes* Telephone Encounter - Melita Le LPN - 10/16/2023 11:47 AM EST Patient notified of results and provider's instructions. Patient verbalizes understanding. Melita Le LPN * Telephone Encounter - Shanita Green PA-C - 10/16/2023 11:26 AM EST Let patient know that her shoulder xray is okay. Neck xray shows mild to moderate arthritic changes. Continue as we discussed for now. Shanita Green PA-C documented in this encounterParkwood Hospital02-13-2024 Miscellaneous Notes* Telephone Encounter - Elana Waller PSS - 10/15/2023 3:52 PM EST CD READY FOR CLINICAL NURSE LEADER AT [facility] for pt * Telephone Encounter - Ramona Lundy - 10/15/2023 11:42 AM EST Patient is requesting copy of x-ray report and disc from 10/15/23. Please notify patient when ready for picker packer. Instructed to retrieve items at [place]. documented in this encounterParkwood Hospital02-13-2024 History of Present illness Narrative* James Brewer RT(R) - 10/15/2023 9:20 AM EST Radiology Service Progress Note PATIENT NAME: Diony Ramirez DATE OF SERVICE: October 15, 2023 TIME: 9:36 AM PATIENT IDENTITY VERIFICATION COMPLETED USING TWO (2) IDENTIFIERS: Name and Date of confirmedby patient verbally. FALL SCREENING: Has the patient had 2 falls in the last year or 1 fall with injury or currently using an Ambulatory Assistive Device (Walker, Cane, Wheelchair, Crutches, etc.)? No PATIENT GENDER DATA: Female. status: : No status: NO. PATIENT RELEVANT IMPLANT DATA REVIEWED: Yes PATIENT PRESENTS WITH AN IMPLANTABLE OR ATTACHED ELECTRIC STOP INSTALLER: No RADIOLOGY DEPARTMENT: General X-ray: Exam(s) Completed: Spine X-Ray(s): Cervical AP / LAT / OBL Upper Extremity X-Ray(s): Shoulder, AP / TRUE AP right Scapular Y view PERIPHERAL IV DATA: Not applicable SIGNED BY: RT Berry(R) October 15, 2023 9:36 AM documented in this encounterParkwood Hospital02-13-2024 History of Present illness Narrative* Shanita Green PA-C - 10/15/2023 8:49 AM EST Chief Complaint Patient presents with: right shoulder pain: X 2 weeks HPI Diony Ramirez is a 68 year old female who presents here today for Above Complaints.. Recently has been seen for low back pain. Was seen by [facility] and had MRI done. Is scheduled for pain management with Dr. Montilla in October. In the meantime she started to go to chiropractor who has helped her low back pain and hip pain, however now she is having significant pain in her neck/shoulder region. States she had similar pain in past and it was how her arnold-chiari was found. Her pain in neck has been mostly controlled until just recently. She notes a knot between her neck/shoulder. Pain with ROM of shoulder and neck. Past medical history, appointments, medications, allergies reviewed. Previous Medical History PAST MEDICAL HISTORY Diagnosis Date Abnormal toxicological findings 02/01/2021 Tox screen 01/27/2021 showed no benzos and pos for oxycodone which patient was not on. Patient informed of no further controlled med refills. 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 Chronic anxiety 06/17/2018 Degenerative arthritis of lumbar spine 05/06/2014 Ectatic thoracic aorta (HCC) 12/04/2022 CT done 12/2022 Elevated blood sugar 01/27/2021 Emphysema of lung (HCC) 03/18/2015 Essential hypertension, benign 02/21/2015 Ex-smoker 01/27/2021 Started around 89 and quit 2004. Smoked about 1.5 PPD GERD without esophagitis 09/12/2022 Herpes 01/27/2021 History of 2019 novel coronavirus disease (COVID-19) 01/27/202106/2020 History of small bowel obstruction HSV (herpes simplex virus) anogenital infection 02/08/2016 Living will on file at physician's office 09/27/2022 DPA: Reina Denise (aunt) Lung mass 09/07/2011 Lung nodules 05/30/[address] Suleman Gustafson Medicare annual wellness visit, subsequent 01/27/2021 Medicare Part B: NA Last done: Multiple thyroid nodules 01/27/[address] Vigil and f/u was stable. Told no need for further f/u. 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 Takes mid morning. Substance agreement signed and Tox screen done 12/2020. 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 COLONOSCOPY FLX DX W/COLLJ SPEC WHEN PFRMD 08/19/2006 Repeat in COLONOSCOPY FLX DX W/COLLJ SPEC WHEN PFRMD 06/27/2016 Colonoscopy CRANIOPLASTY SKULL DEF/REPAIR/ BRAIN 09/14/2014 See scanned documents - status post ESOPHAGOGASTRODUODENOSCOPY TRANSORAL DIAGNOSTIC 06/27/2016 EGD ESOPHAGOGASTRODUODENOSCOPY TRANSORAL DIAGNOSTIC 06/30/2018 EGD I&D ABSCESS CMPLX/MULT 07/2013 Epidural abscess- MSSA LIG/TRNSXJ FLP TUBE ABDL/VAG APPR UNI/BI Tubal ligation PAST SURGICAL HISTORY OF spinal surgery PAST SURGICAL HISTORY OF 2/307 retinal detachment OD, (2 tears) PAST SURGICAL HISTORY OF 2012 back surgery STRESS TEST NUCLEAR 05/23/2021 negative Family History FAMILY HISTORY Problem Relation Age of Onset Hypertension Mother other (cerebral aneurysm) Mother Colon Polyps Father Hypertension Father COPD Father Cancer Father Bladder Cancer other (Past medical history) Father abdominal aneurysm/bladder cancer other (aortic aneurysm) Father Aneurysm Paternal Grandfather Patient Allergies ALLERGIES Allergen Reactions Fish Unknown Horse/Equine Contai* Unknown Lisinopril Cough Shellfish Derived Unknown Current Medications Current Outpatient Medications on File Prior to Visit Medication Sig amLODIPine (NORVASC) 2.5 mg tablet Take 1 tablet by mouth once daily. hydrOXYzine HCl (ATARAX) 10 mg tablet Take 1 tablet by mouth daily at bedtime. traZODone (DESYREL) 150 mg tablet Take 1 tablet by mouth daily at bedtime. FOLIC ACID ORAL Take by mouth as directed. cetirizine (ZYRTEC) 10 mg tablet Take 1 tablet by mouth once daily. (Patient taking differently: Take 10 mg by mouth as needed.) omeprazole (PRILOSEC) 40 mg capsule Take 1 capsule by mouth once daily. acyclovir (ZOVIRAX) 400 mg tablet Take 1 tablet by mouth twice daily. ZINC ORAL Take by mouth as directed. SYMBICORT 160-4.5 mcg/actuation inhaler BIOTIN ORAL Take 5,000 mcg by mouth. ascorbic acid/collagen hydr (COLLAGEN PLUS VITAMIN C ORAL) Take 1,000 mg by mouth twice daily. albuterol HFA (PROAIR HFA) 90 mcg/actuation inhaler Inhale 2 Puffs as instructed every 4 hours as needed for Wheezing/Shortness of Breath. Melatonin 5 mg cap 5 mg by mouth taken 2 hours prior to bedtime (Patient taking differently: 10 mg.5 mg by mouth taken 2 hours prior to bedtime) Ascorbic Acid (VITAMIN C) 1,000 mg TbER Take by mouth. Calcium Carb-Cholecalciferol (CALCIUM 600 WITH VITAMIN D3) 600-200 mg-unit ORAL Tab Take one(1) tablet two(2) times daily. Benzonatate 200 mg capsule Take 1 capsule by mouth three times a day as needed. (Patient not taking: Reported on 10/15/2023) No current facility-administered medications on file prior to visit. Social History Social History Tobacco Use Smoking status: Former Packs/day: 1.50 Years: 15.00 Additional pack years: 0.00 Total pack years: 22.50 Types: Cigarettes Quit date: 07/31/2005 Years since quittin.2 Smokeless tobacco: Never Vaping Use Vaping Use: Never used Substance Use Topics Alcohol use: Yes Alcohol/week: 10.0 - 15.0 standard drinks of alcohol Types: 10 - 15 Cans of Beer (12oz) per week Comment: 5-8 beers daily Drug use: No Review of Symptoms REVIEW OF SYSTEMS See hpi EXAM: BP 122/80 (BP Site: Right Arm, BP Position: Sitting, BP Cuff Size: Regular Adult) Pulse 110 Temp 36.7 C (98 F) Resp 16 Wt 42.2 kg (93 lb) LMP 03/23/2007 BMI 20.13 kg/m General Appearance: Well appearing, alert, in no acute distress, well-hydrated, well nourished.. Musculoskeletal: tender to palp of right trapezius muscle. +muscle spasm noted. Patient with significant pain in this spot. NVI. Health Maintenance List RSV Vaccine(1 - 1-dose 60+ series) due on 10/01/2024 BP Controlled (<130/80) due on 11/20/2023 Mammogram Screening due on 06/11/2024 Annual PCP Team Chronic Disease Visit due on 10/01/2024 Colorectal Cancer Screening due on 06/27/2026 Diabetes Screening due on 09/23/2026 Lipid Screening due on 09/23/2028 DTaP,Tdap,Td Vaccine(3 - Td or Tdap) due on 12/18/2028 Bone Density Screening Completed Influenza Vaccine Completed Advance Directive Discussion Completed Depression Assessment Completed Hepatitis C Screening Completed Shingrix Vaccine Completed Pneumococcal Vaccine: 65+ Completed Alpha-1 Antitrypsin Deficiency Screening Discontinued Spirometry Discontinued Pap Testing Discontinued Covid-19 Vaccine Discontinued Data reviewed ASSESSMENT/PLAN: 1. Neck pain - ICD9: 723.1, ICD10: M54.2 (primary diagnosis) Acute on chronic neck pain. Suspect muscle spasm. Start muscle relaxer and prn norco. Check xrays. Consider MRI if not improving. - XR CERV OTHER 4V AP/LAT/OBL - XR SHOULDER GENERAL 3V OR MORE AP/TRUE AP/OTHER RIGHT - HYDROCODONE 5 MG-ACETAMINOPHEN 325 MG TABLET 2. Acute pain of right shoulder - ICD9: 719.41, ICD10: M25.511 As above - XR CERV OTHER 4V AP/LAT/OBL - XR SHOULDER GENERAL 3V OR MORE AP/TRUE AP/OTHER RIGHT - HYDROCODONE 5 MG-ACETAMINOPHEN 325 MG TABLET Shanita Green PA-C documented in this encounterPark[facility]02-05-2024 Miscellaneous Notes* Telephone Encounter - [place] Cindy Kirkland - 10/07/2023 12:10 PM EST Patient has been identified by name and date of : Yes Requested Prescriptions Pending Prescriptions Disp Refills amLODIPine (NORVASC) 2.5 mg tablet 90 tablet 3 Sig: Take 1 tablet by mouth once daily. hydrOXYzine HCl (ATARAX) 10 mg tablet 90 tablet 3 Sig: Take 1 tablet by mouth daily at bedtime. RX INSTRUCTIONS: Patient is changing back to [facility]. Please send today. She requested 90 days with refills. Patient aware RX will be sent to pharmacy. No need to notify patient. Cindy Kirkland documented in this encounterParkwood Hospital12-21-2023 History of Present illness Narrative* Christine Parker RN - 08/22/2023 10:39 AM EST CDM Telephonic Outreach Provider Action/FYI Contacted for: Routine Telephonic Outreach Contact made with patient: Yes Patient identified by name and date of . Discussed care with patient Are you experiencing any new or worsening symptoms you need to talk about today? No Disease Specific Do you check your blood pressure at home? No Do you have new or worsening shortness of breath with activity? No Do you have new or worsening cough? No Do you have new or worsening wheezing? No Do you need to use your rescue (Albuterol) inhaler or nebulizer more often than normal? No Based on communications clerk, the following disposition is advised: No symptoms or symptoms present, not severe. Routed to: No Action Needed PALOMA Education Provided this Outreach: No Pt reports she is doing good and she is not having any new or worsening cdm concerns at this time. She will contact the office with any needs or questions. Christine Parker RN August 22, 2023 10:39 AM documented in this encounterPark[facility]12-14-2023 History of Present illness Narrative* Kandice Ryan RT(R) - 08/15/2023 12:10 PM EST Radiology Service Progress Note PATIENT NAME: Diony Ramirez DATE OF SERVICE: August 15, 2023 TIME: 12:10 PM PATIENT IDENTITY VERIFICATION COMPLETED USING TWO (2) IDENTIFIERS: Name and Date of confirmedby patient verbally. FALL SCREENING: Has the patient had 2 falls in the last year or 1 fall with injury or currently using an Ambulatory Assistive Device (Walker, Cane, Wheelchair, Crutches, etc.)? No PATIENT GENDER DATA: Female. status: : No status: NO. PATIENT RELEVANT IMPLANT DATA REVIEWED: Not Applicable RADIOLOGY DEPARTMENT: General X-ray: Exam(s) Completed: Spine X-Ray(s): Lumbar AP / LAT / L5-S1 / FLEX-EXT Pelvis X-Ray: Pelvis with Hip Bilateral PERIPHERAL IV DATA: Not applicable SIGNED BY: RT Liz(R) August 15, 2023 12:10 PM documented in this encounterParkwood Hospital12-05-2023 History of Present illness Narrative* Jeancarlos Fraser, PT - 08/06/2023 2:34 PM EST Episode Visit Count: 3 Therapist That Will Accept/Oversee The Plan Of Care: Jeancarlos Fraser Start of Care Date: 07/15/23 Onset Date: 05/15/23 Plan of Care Certification Date: 07/15/23 Next Certification Due Date: 09/14/23 REHABILITATION AND SPORTS THERAPY PHYSICAL THERAPY DISCONTINUANCE OF CARE PLAN OF CARE UPDATE: Assessment: Diony Ramirez is discontinued from Physical Therapy services due to Patient/Clientdeclining further intervention.. Patient was seen for 3 visits from Start of Care Date: 07/15/23 to08/06/2023 and treatment included: Therapeutic exercise and Manual therapy. While patient declining further intervention was the main factor for discharge today, it is of my opinion that physical therapy was unlikely to improve symptoms based upon her poor historical response to therapy and the lackof progress made over our last 3 visits. Patient will be referred back to referring provider for updated plan of care. Goals updated on 08/05/2023. Goals for Episode of Care: created on 07/15/23 through 09/14/23 Independent in home exercises. Met Patient will decrease pain rating by 2 points to meet minimal clinical important difference for numeric pain rating scale. Not met Restore pain-free lumbar ROM to WNL to allow for improved functional Mobility. Not met Stand / Walk as needed for ADLs without pain/symptoms. Not met SUBJECTIVE: Pt notes no real change and would like to make today the last visit due to lack of progress being made. Pain: Pain Pain Level: 7 Pain Location: Leg - Left, Leg - Right Description: Aching, Sore Frequency: Continuous PROMIS Scales Higher is Better 07/15/2023 10/01/2019 09/01/2019 Phys Func - Score 47 (within normal limits) 40 (mild dysfunction) 41 (mild dysfunction) Phys Func - Percentile 38% 16% 18% Self-Eff Symptom - Score 41 (Average) - - Self-Eff Symptom - Percentile 18% - - T-scores: mean of general population = 50. 5 points is clinically meaningfully difference Percentiles provide an indication of how the patient's score ranks in relation to the general population. Higher percentile rankings indicate better function/quality of life. 50th percentile is the average of the general population and indicates half of respondents had a worse score. OBJECTIVE MEASURES WITH LEVEL OF FUNCTION: LE Strength Trunk Strength: 3+/5 R LE Strength: 4+/5 L LE Strength: 4+/5 TREATMENT: Therapeutic Exercise: 1: SKC 3x30 sec/side 2: DKC 3x30 sec 3: Hooklying piriformis stretch 3x30 sec/side 4: TA bracing x10 5: TA bracing plus hip hikes x10/side Skilled Intervention: Patient was educated in proper exercise technique and purpose for exercises. Skilled judgment was used in selection of appropriate interventions. Provided written instruction for home exercise program to facilitate proper performance and compliance. Correct performance of therapeutic exercises was facilitated with verbal, visual, and tactile cuing. Billing Therapeutic Exercise Treatment Minutes: 24 Skilled Treatment Time Minutes (timed and untimed codes): 24 Total Session Time (minutes): 24 Session Start Time : 1048 Session Stop Time : 1112 Jeancarlos Fraser PT documented in this encounterParkwood Hospital11-30-2023 History of Present illness Narrative* Jeancarlos Fraser, PT - 08/01/2023 2:43 PM EST Episode Visit Count: 2 Therapist That Will Accept/Oversee The Plan Of Care: Jeancarlos Fraser Start of Care Date: 07/15/23 Onset Date: 05/15/23 Plan of Care Certification Date: 07/15/23 Next Certification Due Date: 09/14/23 REHABILITATION AND SPORTS THERAPY PHYSICAL THERAPY TREATMENT NOTE ASSESSMENT: Diony Ramirez tolerated the session with decreased symptoms. She demonstrated improvements in post leg pain. The patient will continue to benefit from ongoing skilled physical therapy to progress toward set goals. PLAN FOR NEXT VISIT: Continue flexion bias and traction SUBJECTIVE: Pt reports no change since last being seen, she is faithful with her exercises a few times a day Pain: Pain Pain Level: 7 Pain Location: Leg - Left, Leg - Right Description: Aching, Sore, Numbness, Tingling, Spasm Frequency: Continuous OBJECTIVE MEASURES WITH LEVEL OF FUNCTION: Traction decreases post leg pain today TREATMENT: Therapeutic Exercise: 1: SKC 3x30 sec/side 2: DKC 3x30 sec 3: Hooklying piriformis stretch 3x30 sec/side 4: *TA bracing 3x10, 5 sec holds 5: *TA bracing plus marching 3x10/side Skilled Intervention: Patient was educated in proper exercise technique and purpose for exercises. Skilled judgment was used in selection of appropriate interventions. Provided written instruction for home exercise program to facilitate proper performance and compliance. Correct performance of therapeutic exercises was facilitated with verbal, visual, and tactile cuing. Manual Therapy: 1: Manual lumbar belt traction x10 min with feet on stool, pull to tolerance Skilled Intervention: Manual skills to improve joint mobility, ROM, and decrease pain. Utilized anatomy knowledge of the therapist, and assessment of patient's response to intervention. Billing Therapeutic Exercise Treatment Minutes: 33 Manual TherapyTreatment Minutes: 10 Skilled Treatment Time Minutes (timed and untimed codes): 43 Total Session Time (minutes): 43 Session Start Time : 1045 Session Stop Time : 1128 Jeancarlos Fraser PT * Jeancarlos Fraser PT - 07/29/2023 11:19 AM EST Program_ID:[id number] Access Code: [email or web address] URL: [email or web address] Date: 07-29-2023 Prepared By: Jeancarlos Fraser Program Notes Exercises - Hooklying Single Knee to Chest - 1 x daily - 7 x weekly - 3 - 3 - Hooklying Single Knee to Chest - 1 x daily - 7 x weekly - 3 - 3 - Supine Transversus Abdominis Bracing - Hands on Ground - 1 x daily - 7 x weekly - 3 - 10 - Supine March - 1 x daily - 7 x weekly - 3 - 10 Patient Education - Lumbar Stenosis * Jeancarlos Fraser, PT - 07/29/2023 11:18 AM EST Program_ID:[id number] Access Code: [email or web address] URL: [email or web address] Date: 07-29-2023 Prepared By: Jeancarlos Fraser Program Notes Exercises - Hooklying Single Knee to Chest - 1 x daily - 7 x weekly - 3 - 3 - Hooklying Single Knee to Chest - 1 x daily - 7 x weekly - 3 - 3 - Supine Piriformis Stretch with Foot on Ground - 1 x daily - 7 x weekly - 3 - 3 - Supine Transversus Abdominis Bracing - Hands on Ground - 1 x daily - 7 x weekly - 3 - 10 - Supine March - 1 x daily - 7 x weekly - 3 - 10 Patient Education - Lumbar Stenosis documented in this encounterParkwood Hospital11-20-2023 History of Present illness Narrative* Kerrie Damian RN - 07/22/2023 11:30 AM EST [facility] Telephonic Outreach Provider Action/FYI Attempted to contact pt in regards to [facility] Home Monitoring program. LVM. Second attempt. Will outreach at next routine outreach x3-4 weeks. Contacted for: Routine Telephonic Outreach Contact made with patient: No, left message. Kerrie Damian RN July 22, 2023 11:45 AM documented in this encounterParkwood Hospital11-13-2023 History of Present illness Narrative* Jeancarlos Fraser, PT - 07/15/2023 10:47 AM EST Episode Visit Count: 1 Therapist That Will Accept/Oversee The Plan Of Care: Jeancarlos Fraser Start of Care Date: 07/15/23 Onset Date: 05/15/23 Plan of Care Certification Date: 07/15/23 Next Certification Due Date: 09/14/23 Patient Identified by Name and Date of : Yes REHABILITATION AND SPORTS THERAPY PHYSICAL THERAPY EVALUATION PLAN OF CARE: Assessment: Diony Ramirez presents with chief complaint of LBP and radicular symptoms that interferes with walking, standing, bending, heavy exertion, lifting . She presents with impairments in ADL's, overall function, range of motion, strength, and symptom management. PROMIS (Patient-Reported Outcomes Measurement Information System) scores were reviewed and self efficacy domain identified as a rehabilitation concern. Prognosis for therapy is Fair due to: clinical presentation, chronic nature of impairments, multiple co- morbidities, limited tolerance to activity, poor understanding of deficits, poor past response to therapy intervention . She will benefit from skilled therapy servicesto meet the goals established for this plan of care as noted below. Goals for Episode of Care: created on 07/15/23 through 09/14/23 Independent in home exercises. Patient will decrease pain rating by 2 points to meet minimal clinical important difference for numeric pain rating scale. Restore pain-free lumbar ROM to WNL to allow for improved functional mobility Stand / Walk as needed for ADLs without pain/symptoms. Planned Interventions, Frequency, and Duration: Current Frequency: 1x/week Duration: 8 weeks Total Number of Visits Planned: 8 Planned Treatment Interventions: Therapeutic exercise (12546), Neuromuscular re- education (93270), Manual therapy (45264), Therapeutic activities (74900), Self- longterm management (73917), Patient/Family/Caregiver Education, Body Mechanics Training PLAN FOR NEXT VISIT: neutral spine strengthening Patient demonstrates good understanding of plan of care and treatment. The above goals and plan of care were discussed and agreed upon by patient/family. SUBJECTIVE: R sided LBP and radicular symptoms down the back of the thigh. Walking is a little more difficult, Functional Limitations: walking, standing, bending, heavy exertion, lifting Prior Level of Function: Independent without limitations Intake Information: Prescription present Pain: Pain Pain Level: 7 Pain Location: Low Back/Lumbar Spine - Right, Low Back/Lumbar Spine - Left Description: Aching, Spasm, Stabbing Frequency: Continuous PROMIS Scales Higher is Better 07/15/2023 10/01/2019 09/01/2019 Phys Func - Score 47 (within normal limits) 40 (mild dysfunction) 41 (mild dysfunction) Phys Func - Percentile 38 % 16 % 18 % Self-Eff Symptom - Score 41 (Average) - - Self-Eff Symptom - Percentile 18 % - - T-scores: mean of general population = 50. 5 points is clinically meaningfully difference Percentiles provide an indication of how the patient's score ranks in relation to the general population. Higher percentile rankings indicate better function/quality of life. 50th percentile is the average of the general population and indicates half of respondents had a worse score. OBJECTIVE MEASURES WITH LEVEL OF FUNCTION: Lumbar Spine AROM Lumbar Flexion: Normal Lumbar Extension: Moderate limitation Lumbar R Side-Bend: Moderate limitation Lumbar L Side-Bend: Minimal limitation Lumbar R Rotation: Moderate limitation Lumbar L Rotation: Moderate limitation LE Strength Trunk Strength: 3/5 R LE Strength: grossy 4+/5 L LE Strength: grossly 4+/5 Education: Education Learning/educational needs: Home exercise program, Plan of Care TREATMENT: PT Treatment Interventions: Therapeutic Exercise, Manual Therapy Evaluation Therapeutic Exercise: 1: *SKC 3x30 sec/side 2: *DKC 3x30 sec 3: *Hooklying piriformis stretch 3x30 sec/side 4: Issued [employer] handout on spine stenosis Skilled Intervention: Patient was educated in proper exercise technique and purpose for exercises. Skilled judgment was used in selection of appropriate interventions. Provided written instruction for home exercise program to facilitate proper performance and compliance. Correct performance of therapeutic exercises was facilitated with verbal, visual, and tactile cuing. Manual Therapy: 1: Manual lumbar belt traction x10 min with feet on stool, pull to tolerance Skilled Intervention: Manual skills to improve joint mobility, ROM, and decrease pain. Utilized anatomy knowledge of the therapist, and assessment of patient's response to intervention. Billing * Evaluation Low Complexity: 1 Unit Therapeutic Exercise Treatment Minutes: 14 Manual TherapyTreatment Minutes: 10 Skilled Treatment Time Minutes (timed and untimed codes): 43 Total Session Time (minutes): 43 Session Start Time : 904 Session Stop Time : 947 Jeancarlos Fraser PT * Jeancarlos Fraser PT - 07/15/2023 9:46 AM EST Program_ID:[id number] Access Code: [email or web address] URL: [email or web address]/ Date: 07-15-2023 Prepared By: Jeancarlos Fraser Program Notes Exercises - Hooklying Single Knee to Chest - 1 x daily - 7 x weekly - 3 - 3 - Hooklying Single Knee to Chest - 1 x daily - 7 x weekly - 3 - 3 - Supine Piriformis Stretch with Foot on Ground - 1 x daily - 7 x weekly - 3 - 3 Patient Education - Lumbar Stenosis * Jeancarlos Fraser, PT - 07/15/2023 9:45 AM EST Program_ID:[id number] Access Code: [email or web address] URL: [email or web address] Date: 07-15-2023 Prepared By: Jeancarlos Fraser Program Notes Exercises - Hooklying Single Knee to Chest - 1 x daily - 7 x weekly - 3 - 3 - Hooklying Single Knee to Chest - 1 x daily - 7 x weekly - 3 - 3 - Supine Piriformis Stretch with Foot on Ground - 1 x daily - 7 x weekly - 3 - 3 documented in this encounterParkwood Hospital10-26-2023 Miscellaneous Notes* Telephone Encounter - Rito Camp MD - 06/27/2023 3:39 PM EDT The following approved medication requests have been transmitted electronically. Requested Prescriptions Signed Prescriptions Disp Refills traZODone (DESYREL) 150 mg tablet 90 tablet 1 Sig: Take 1 tablet by mouth daily at bedtime. Authorizing Provider: RITO CAMP hydrOXYzine HCl (ATARAX) 10 mg tablet 90 tablet 1 Sig: Take 1 tablet by mouth daily at bedtime. Authorizing Provider: RITO CAMP MD * Telephone Encounter - Aruy Newton MA - 06/27/2023 3:03 PM EDT Patient has been identified by name and date of : Yes Requested Prescriptions Pending Prescriptions Disp Refills traZODone (DESYREL) 150 mg tablet 90 tablet 1 Sig: Take 1 tablet by mouth daily at bedtime. hydrOXYzine HCl (ATARAX) 10 mg tablet 90 tablet 1 Sig: Take 1 tablet by mouth daily at bedtime. RX INSTRUCTIONS: Patient aware RX will be sent to pharmacy. No need to notify patient. Aury Newton MA Chloe 06/2023 Nov 09/2023 Last refill; 03/2023 * Telephone Encounter - Angella Stevens - 06/27/2023 2:41 PM EDT Pharmacy verified in Epic Patient has been identified by name and date of : Yes Patient aware RX will be sent to pharmacy. No need to notify patient. Patient phones for refill(s): Requested Prescriptions Pending Prescriptions Disp Refills traZODone (DESYREL) 150 mg tablet 90 tablet 1 Sig: Take 1 tablet by mouth daily at bedtime. hydrOXYzine HCl (ATARAX) 10 mg tablet 90 tablet 1 Sig: Take 1 tablet by mouth daily at bedtime. Date of last office visit : 06/08/2023 Date of next office visit : 10/01/2023 Last 2 Encounter Wt Readings: Date: Wt: 06/11/2023 39.5 kg (87 lb) 06/08/2023 40.8 kg (90 lb) Not applicable Please advise. Angella Kirkland documented in this encounterParkwood Hospital10-20-2023 History of Present illness Narrative* Kerrie Damian RN - 06/21/2023 12:24 PM EDT [facility] Telephonic Outreach Provider Action/FYI Pt doing well at home. No new symptoms, no med questions, no refills needed at this time. Pt understands to call PCP with any questions/ concerns in between calls. Contacted for: Routine Telephonic Outreach Contact made with patient: Yes Patient identified by name and date of . Discussed care with patient Are you experiencing any new or worsening symptoms you need to talk about today? No Disease Specific Do you check your blood pressure at home? No Do you have new or worsening shortness of breath with activity? No Do you have new or worsening cough? No Do you have new or worsening wheezing? No Do you need to use your rescue (Albuterol) inhaler or nebulizer more often than normal? No Based on communications clerk, the following disposition is advised: No symptoms or symptoms present, not severe. Routed to: No Action Needed PALOMA Education Provided this Outreach: No Kerrie Damian RN June 21, 2023 12:29 PM documented in this encounterParkwood Hospital10-20-2023 Miscellaneous Notes* Telephone Encounter - Melita Le LPN - 06/21/2023 9:31 AM EDT Pt notified of same. Melita Le LPN * Telephone Encounter - Alex Brown APRN.CNP - 06/20/2023 5:16 PM EDT Please let patient know her WBC count has returned to normal. documented in this encounterParkwood Hospital10-19-2023 Miscellaneous Notes* Telephone Encounter - Marli Zhang RN - 06/20/2023 3:44 PM EDT Pt called and is notified of providers results. Pt voices understanding. Marli Zhang RN * Telephone Encounter - Rito Camp MD - 06/20/2023 3:35 PM EDT Let patient know the repeat CBC was ok. documented in this encounterParkwood Hospital10-12-2023 History of Present illness Narrative* Toi Falcon MD - 06/13/2023 12:30 PM EDT HISTORY AND PHYSICAL Diony Alcantar Ashley 1955 REFERRING PHYSICIAN: Alex Brown APRN.* CHIEF COMPLAINT: Consult (S/p small bowel obstruction) HPI: The patient is a 68 year old female with a complaint of resolution of partial small bowel obstruction. Patient was admitted to [facility] on 05/31/2023. She has been having waxingand waning lower abdominal pain work-up included imaging which was consistent with a partial small bowel obstruction. NG tube was placed for decompression partial small bowel obstruction was relievedand she was treated in a nonsurgical manner with success. This is happened on 2 other occasions to her. Her only abdominal surgeries were as a laparoscopic bilateral tubal ligation in the remote past. Currently she is not having any abdominal pain nausea or vomiting The patient is being seen by me today at the request of Dr. Brown for my opinion and advice regarding S/p small bowel obstruction. PAST MEDICAL HISTORY Diagnosis Date Abnormal toxicological findings 02/01/2021 Tox screen 01/27/2021 showed no benzos and pos for oxycodone which patient was not on. Patient informed of no further controlled med refills. 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 Chronic anxiety 06/17/2018 Degenerative arthritis of lumbar spine 05/06/2014 Ectatic thoracic aorta (HCC) 12/04/2022 CT done 12/2022 Elevated blood sugar 01/27/2021 Emphysema of lung (HCC) 03/18/2015 Essential hypertension, benign 02/21/2015 Ex-smoker 01/27/2021 Started around 89 and quit 2004. Smoked about 1.5 PPD GERD without esophagitis 09/12/2022 Herpes 01/27/2021 History of 2019 novel coronavirus disease (COVID-19) 01/27/202106/2020 History of small bowel obstruction HSV (herpes simplex virus) anogenital infection 02/08/2016 Living will on file at physician's office 09/27/2022 DPA: Reina Denise (aunt) Lung mass 09/07/2011 Lung nodules 05/30/[address] Suleman Gustafson Medicare annual wellness visit, subsequent 01/27/2021 Medicare Part B: NA Last done: Multiple thyroid nodules 01/27/[address] Vigil and f/u was stable. Told no need for further f/u. 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 Takes mid morning. Substance agreement signed and Tox screen done 12/2020. 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 COLONOSCOPY FLX DX W/COLLJ SPEC WHEN PFRMD 08/19/2006 Repeat in -2015 COLONOSCOPY FLX DX W/COLLJ SPEC WHEN PFRMD 06/27/2016 Colonoscopy CRANIOPLASTY SKULL DEF/REPAIR/ BRAIN 09/14/2014 See scanned documents - status post ESOPHAGOGASTRODUODENOSCOPY TRANSORAL DIAGNOSTIC 06/27/2016 EGD ESOPHAGOGASTRODUODENOSCOPY TRANSORAL DIAGNOSTIC 06/30/2018 EGD I&D ABSCESS CMPLX/MULT 07/2013 Epidural abscess- MSSA LIG/TRNSXJ FLP TUBE ABDL/VAG APPR UNI/BI Tubal ligation PAST SURGICAL HISTORY OF spinal surgery PAST SURGICAL HISTORY OF 2 retinal detachment OD, (2 tears) PAST SURGICAL HISTORY OF 2012 back surgery STRESS TEST NUCLEAR 05/23/2021 negative Current Outpatient Medications Medication Sig acyclovir (ZOVIRAX) 400 mg tablet Take 1 tablet by mouth twice daily. albuterol HFA (PROAIR HFA) 90 mcg/actuation inhaler Inhale 2 Puffs as instructed every 4 hours as needed for Wheezing/Shortness of Breath. amLODIPine (NORVASC) 2.5 mg tablet Take 1 tablet by mouth once daily. Ascorbic Acid (VITAMIN C) 1,000 mg TbER Take by mouth. ascorbic acid/collagen hydr (COLLAGEN PLUS VITAMIN C ORAL) Take 1,000 mg by mouth twice daily. azithromycin (ZITHROMAX Z-NASEEM) 250 mg tablet Take 2 tablets day one, then, 1 tablet daily until gone. baclofen 10 mg tablet Take 1 tablet by mouth three times daily as needed (muscle spasms). (Patient not taking: Reported on 06/08/2023) Benzonatate 200 mg capsule Take 1 capsule by mouth three times a day as needed. BIOTIN ORAL Take 5,000 mcg by mouth. Calcium Carb-Cholecalciferol (CALCIUM 600 WITH VITAMIN D3) 600-200 mg-unit ORAL Tab Take one(1) tablet two(2) times daily. cetirizine (ZYRTEC) 10 mg tablet Take 1 tablet by mouth once daily. denosumab (PROLIA) 60 mg/mL 60 mg once every 6 months, per Endo: Dr. mckee (Patient not taking: Reported on 05/14/2023) fluticasone (FLONASE) 50 mcg/actuation nasal spray Use 2 Sprays in each nostril once daily. Rinse mouth after use. FOLIC ACID ORAL Take by mouth as directed. hydrOXYzine HCl (ATARAX) 10 mg tablet Take 1 tablet by mouth daily at bedtime. Melatonin 5 mg cap 5 mg by mouth taken 2 hours prior to bedtime (Patient taking differently: 10 mg.5 mg by mouth taken 2 hours prior to bedtime) methylPREDNISolone (MEDROL, NASEEM,) 4 mg Dose-Pack Follow dosing instructions, take with food. omeprazole (PRILOSEC) 40 mg capsule Take 1 capsule by mouth once daily. SPIRIVA RESPIMAT 2.5 mcg/actuation inhaler (Patient not taking: Reported on 05/14/2023) SYMBICORT 160-4.5 mcg/actuation inhaler traZODone (DESYREL) 150 mg tablet Take 1 tablet by mouth daily at bedtime. ZINC ORAL Take by mouth as directed. No current facility-administered medications for this visit. ALLERGIES: Fish, Horse Serum [Other], Lisinopril, and Seafood [Other] PERSONAL HISTORY: Social History Tobacco Use Smoking status: Former Packs/day: 1.50 Years: 15.00 Additional pack years: 0.00 Total pack years: 22.50 Types: Cigarettes Quit date: 07/31/2005 Years since quittin.8 Smokeless tobacco: Never Vaping Use Vaping Use: Never used Substance Use Topics Alcohol use: Yes Alcohol/week: 25.0 - 37.5 standard drinks of alcohol Types: 10 - 15 Cans of Beer (12oz) per week Comment: 5-8 beers daily Drug use: No FAMILY HISTORY: FAMILY HISTORY Problem Relation Age of Onset Hypertension Mother other (cerebral aneurysm) Mother Colon Polyps Father Hypertension Father COPD Father Cancer Father Bladder Cancer other (Past medical history) Father abdominal aneurysm/bladder cancer other (aortic aneurysm) Father Aneurysm Paternal Grandfather REVIEW OF SYMPTOMS: The review of systems data was entered by the nurse and reviewed by nd Nursing Notes: Bree Emmanuel LPN 06/11/2023 9:30 AM Signed REVIEW OF SYSTEMS: General: The patient notes fatigue, denies weight loss, denies weight gain, denies feeling hot, anddenies feelings of cold. Eyes: The patient denies glaucoma, notes eye injury/surgery, wears glasses or contacts. Ear/Nose/Throat: The patient notes allergies, denies hayfever, denies ear infections, and denies bloody noses. Cardiovascular: The patient notes chest pain, denies heart disease, notes high blood pressure,denies cardiac stent, denies prior heart attack, denies irregular heart beat, denies high cholesterol, denies poor circulation, denies heart failure, other cardiac issues, notes claudication, denies cold feet, denies peripheral arterial stent. Respiratory: The patient denies tuberculosis, denies pneumonia, notes frequent cough, denies pulmonary embolism, notes shortness of breath, and denies coughing up blood, notes asthma, notes COPD. Gastrointestinal: The patient denies difficulty swallowing, denies acid reflux, denies ulcers, denies vomiting, denies jaundice/hepatitis, denies gallbladder problems, denies black or tarry stools, denies hemorrhoids, denies bleeding from rectum, denies diverticulitis, denies constipation, denies diarrhea, denies loss of stool control, and denies hernias. Kidney/Bladder: The patient denies kidney stones, denies urine infections, and denies bloody urine. Skin: The patient denies a history of skin cancer, denies bleeding/changing moles, and denies a history of skin rash. Neurologic: The patient denies a history of epilepsy/convulsions, denies headaches, notes head/spinal injuries, and denies stroke/TIA. Psychiatric: The patient denies psychiatric medications, denies depression, and denies voices, denies substance abuse. Endocrine: The patient denies thyroid disorders, denies diabetes, and denies hormonal problems. Hematologic: The patient notes a history of bruising, denies bleeding, and denies anemia, denies blood clots. Infections: The patient notes a history of measles and mumps, denies rheumatic fever, and denies sexually transmitted diseases. Musculoskeletal: The patient denies back pain/injury, notes back problems, denies sciatica, denies knee/foot trouble, denies arthritis, or denies gout. When was patient's last Mammogram screening? 06/2023 Last Colonoscopy: 2015 Bree Emmanuel LPN PHYSICAL EXAMINATION: General: The patient is 68 year old female, well nourished, well hydrated in no acute distress. Thepatient is oriented to time, place, and person. VITALS: Blood pressure 112/72, pulse 94, temperature 36.3 C (97.3 F), height 144.8 cm (4' 9), weight 39.5 kg (87 lb), last menstrual period 03/23/2007, SpO2 94 %. HEENT: Normal cephalic, ataumatic, pupils are equally round, sclera are anicteric, mucous membranesare moist, oropharynx is clear. Neck has no masses, asymmetry or lymphadenopathy. Thyroid is unremarkable. Respiratory: Clear to auscultation and percussion. Normal respiratory excursion and pattern. Cardiac: Examination is regular rate and rhythm. Abdominal exam: Soft, nontender, with no palpable masses. No hepatosplenomegaly. No palpable hernias. Rectal exam: exam deferred Extremities: no clubbing, cyanosis or edema. No adenopathy. Other: LABORATORY VALUES: As Noted RADIOLOGIC STUDIES: As Noted Assessment IMPRESSION: S/p small bowel obstruction PLAN: At this point there is no surgical indications for anything. She has had a small bowel follow-through at the hospital which was normal and I do not think taking her to surgery is appropriate inthis setting. Diagnoses: (Z87.19) S/p small bowel obstruction My findings have been communicated to Dr. Brown via shared medical record. This note will be forwarded to Dr. Rito Camp MD. Return to Clinic: The patient is instructed to follow-up with me as needed. Toi Falcon III, MD documented [facility] Miscellaneous Notes* Telephone Encounter - Albania Gill RN - 06/11/2023 4:27 PM EDT Patient calls and notified that general surgery consult has been placed. Patient voiced understanding Albania Gill RN * Telephone Encounter - Marli Zhang RN - 06/11/2023 1:27 PM EDT Called and left a voicemail for the Patient to call back and ask for scheduling to receive the providers message. Marli Zhang RN * Telephone Encounter - Shanita Green PA-C - 06/11/2023 1:16 PM EDT I'm going to put in consult to surgery for their opinion. Shanita Green PA-C * Telephone Encounter - Elizabeth Eckert LPN - 06/11/2023 1:11 PM EDT Pt reports lump is still there. Pt reports it hasn't changed and does not hurt. Elizabeth Eckert LPN * Telephone Encounter - Melita Le LPN - 06/11/2023 9:59 AM EDT Left message for pt to contact office. Melita Mohinder Nikos [place] * Telephone Encounter - Shanita Green PA-C - 06/11/2023 9:26 AM EDT Let patient know that her US and mammogram were normal. Does she still notice that lump in her axilla? Shanita Green PA-C documented in this encounterPark[facility]10[facility] Nurse Note* Bree Emmanuel LPN - 06/11/2023 9:23 AM EDT REVIEW OF SYSTEMS: General: The patient notes fatigue, denies weight loss, denies weight gain, denies feeling hot, anddenies feelings of cold. Eyes: The patient denies glaucoma, notes eye injury/surgery, wears glasses or contacts. Ear/Nose/Throat: The patient notes allergies, denies hayfever, denies ear infections, and denies bloody noses. Cardiovascular: The patient notes chest pain, denies heart disease, notes high blood pressure,denies cardiac stent, denies prior heart attack, denies irregular heart beat, denies high cholesterol, denies poor circulation, denies heart failure, other cardiac issues, notes claudication, denies cold feet, denies peripheral arterial stent. Respiratory: The patient denies tuberculosis, denies pneumonia, notes frequent cough, denies pulmonary embolism, notes shortness of breath, and denies coughing up blood, notes asthma, notes COPD. Gastrointestinal: The patient denies difficulty swallowing, denies acid reflux, denies ulcers, denies vomiting, denies jaundice/hepatitis, denies gallbladder problems, denies black or tarry stools, denies hemorrhoids, denies bleeding from rectum, denies diverticulitis, denies constipation, denies diarrhea, denies loss of stool control, and denies hernias. Kidney/Bladder: The patient denies kidney stones, denies urine infections, and denies bloody urine. Skin: The patient denies a history of skin cancer, denies bleeding/changing moles, and denies a history of skin rash. Neurologic: The patient denies a history of epilepsy/convulsions, denies headaches, notes head/spinal injuries, and denies stroke/TIA. Psychiatric: The patient denies psychiatric medications, denies depression, and denies voices, denies substance abuse. Endocrine: The patient denies thyroid disorders, denies diabetes, and denies hormonal problems. Hematologic: The patient notes a history of bruising, denies bleeding, and denies anemia, denies blood clots. Infections: The patient notes a history of measles and mumps, denies rheumatic fever, and denies sexually transmitted diseases. Musculoskeletal: The patient denies back pain/injury, notes back problems, denies sciatica, denies knee/foot trouble, denies arthritis, or denies gout. When was patient's last Mammogram screening? 06/2023 Last Colonoscopy: 2015 Bree Emmanuel LPN documented in this [facility] History of Present illness Narrative* Rito Camp MD - 06/08/2023 10:40 AM EDT Chief Complaint Patient presents with: Cough HPI Diony Ramirez is a 68 year old female who presents here today for continued cough since being released from the hospital. Patient is here today for chest congestion/tightness. Patient with Hx of COPD with asthma. Patient was in the hospital for small bowel obstruction and had hospital follow with Alex Brown on 06/03/2023. Patient white blood count was up and was instructed to repeat in 2 weeks. No fever. Patient indicated cough, sinus congestion since 06/02/2023. Chest is tight and heavy but not painful. Has started bringing up some mucus at times that has been light yellow. No blood. No fevers, chills, body aches. Has nasal discharge and not sure of color. Was getting headache's in the hospital. No facial pain, sore throat or ear pain. Slightly light headed. No nausea or vomiting since hospital discharge. Past medical history, appointments, medications, allergies reviewed. Previous Medical History PAST MEDICAL HISTORY Diagnosis Date Abnormal toxicological findings 02/01/2021 Tox screen 01/27/2021 showed no benzos and pos for oxycodone which patient was not on. Patient informed of no further controlled med refills. 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 Chronic anxiety 06/17/2018 Degenerative arthritis of lumbar spine 05/06/2014 Ectatic thoracic aorta ([facility]) 12/04/2022 CT done 12/2022 Elevated blood sugar 01/27/2021 Emphysema of lung ([facility]) 03/18/2015 Essential hypertension, benign 02/21/2015 Ex-smoker 01/27/2021 Started around 89 and quit 2004. Smoked about 1.5 PPD GERD without esophagitis 09/12/2022 Herpes 01/27/2021 History of 2019 novel coronavirus disease (COVID-19) 01/27/202106/2020 HSV (herpes simplex virus) anogenital infection 02/08/2016 Living will on file at physician's office 09/27/2022 DPA: Reina Denise (aunt) Lung mass 09/07/2011 Lung nodules 05/30/[address] Suleman Gustafson Medicare annual wellness visit, subsequent 01/27/2021 Medicare Part B: NA Last done: Multiple thyroid nodules 01/27/[address] Vigil and f/u was stable. Told no need for further f/u. 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 Takes mid morning. Substance agreement signed and Tox screen done 12/2020. 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 COLONOSCOPY FLX DX W/COLLJ SPEC WHEN PFRMD 08/19/2006 Repeat in COLONOSCOPY FLX DX W/COLLJ SPEC WHEN PFRMD 06/27/2016 Colonoscopy CRANIOPLASTY SKULL DEF/REPAIR/ BRAIN 09/14/2014 See scanned documents - status post ESOPHAGOGASTRODUODENOSCOPY TRANSORAL DIAGNOSTIC 06/27/2016 EGD ESOPHAGOGASTRODUODENOSCOPY TRANSORAL DIAGNOSTIC 06/30/2018 EGD I&D ABSCESS CMPLX/MULT 07/2013 Epidural abscess- MSSA LIG/TRNSXJ FLP TUBE ABDL/VAG APPR UNI/BI Tubal ligation PAST SURGICAL HISTORY OF spinal surgery PAST SURGICAL HISTORY OF retinal detachment OD, (2 tears) PAST SURGICAL HISTORY OF 2012 back surgery STRESS TEST NUCLEAR 05/23/2021 negative Family History FAMILY HISTORY Problem Relation Age of Onset Hypertension Mother other (cerebral aneurysm) Mother Colon Polyps Father Hypertension Father COPD Father Cancer Father Bladder Cancer other (Past medical history) Father abdominal aneurysm/bladder cancer other (aortic aneurysm) Father Aneurysm Paternal Grandfather Patient Allergies ALLERGIES Allergen Reactions Fish Unknown Horse Serum [Other] Unknown Lisinopril Cough Seafood [Other] Unknown Current Medications Current Outpatient Medications on File Prior to Visit Medication Sig FOLIC ACID ORAL Take by mouth as directed. baclofen 10 mg tablet Take 1 tablet by mouth three times daily as needed (muscle spasms). hydrOXYzine HCl (ATARAX) 10 mg tablet Take 1 tablet by mouth daily at bedtime. traZODone (DESYREL) 150 mg tablet Take 1 tablet by mouth daily at bedtime. denosumab (PROLIA) 60 mg/mL 60 mg once every 6 months, per Endo: Dr. mckee (Patient not taking: Reported on 05/14/2023) cetirizine (ZYRTEC) 10 mg tablet Take 1 tablet by mouth once daily. fluticasone (FLONASE) 50 mcg/actuation nasal spray Use 2 Sprays in each nostril once daily. Rinse mouth after use. amLODIPine (NORVASC) 2.5 mg tablet Take 1 tablet by mouth once daily. omeprazole (PRILOSEC) 40 mg capsule Take 1 capsule by mouth once daily. acyclovir (ZOVIRAX) 400 mg tablet Take 1 tablet by mouth twice daily. ZINC ORAL Take by mouth as directed. SYMBICORT 160-4.5 mcg/actuation inhaler SPIRIVA RESPIMAT 2.5 mcg/actuation inhaler (Patient not taking: Reported on 05/14/2023) BIOTIN ORAL Take 5,000 mcg by mouth. ascorbic acid/collagen hydr (COLLAGEN PLUS VITAMIN C ORAL) Take 1,000 mg by mouth twice daily. albuterol HFA (PROAIR HFA) 90 mcg/actuation inhaler Inhale 2 Puffs as instructed every 4 hours as needed for Wheezing/Shortness of Breath. Melatonin 5 mg cap 5 mg by mouth taken 2 hours prior to bedtime (Patient taking differently: 10 mg.5 mg by mouth taken 2 hours prior to bedtime) Ascorbic Acid (VITAMIN C) 1,000 mg TbER Take by mouth. Calcium Carb-Cholecalciferol (CALCIUM 600 WITH VITAMIN D3) 600-200 mg-unit ORAL Tab Take one(1) tablet two(2) times daily. No current facility-administered medications on file prior to visit. Social History Social History Tobacco Use Smoking status: Former Packs/day: 1.50 Years: 15.00 Additional pack years: 0.00 Total pack years: 22.50 Types: Cigarettes Quit date: 07/31/2005 Years since quittin.8 Smokeless tobacco: Never Vaping Use Vaping Use: Never used Substance Use Topics Alcohol use: Yes Alcohol/week: 25.0 - 37.5 standard drinks of alcohol Types: 10 - 15 Cans of Beer (12oz) per week Comment: 5-8 beers daily Drug use: No Review of Symptoms REVIEW OF SYSTEMS See HPI EXAM: BP 142/90 (BP Site: Right Arm, BP Position: Sitting, BP Cuff Size: Regular Adult) Pulse 97 Temp37.2 C (98.9 F) Resp 18 Wt 40.8 kg (90 lb) LMP 03/23/2007 SpO2 95% BMI 19.48 kg/m BP 154/80 Pulse 97 Temp 37.2 C (98.9 F) Resp 18 Wt 40.8 kg (90 lb) LMP 03/23/2007 SpO2 95% BMI 19.48 kg/m General Appearance: Well appearing, alert, in no acute distress, well-hydrated, well nourished.. Eyes: Anicteric sclera. Pupils are equally round and reactive to light. Extraocular movements are intact. . Ears: External ears normal, canals clear. Nose/Sinuses: Nares normal, septum midline, mucosa normal, no drainage or sinus tenderness. Oropharynx: Lips, mucosa, and tongue normal, teeth and gums normal, oropharynx normal. Neck: Supple, no adenopathy; thyroid symmetric, normal size, no bruits. Lungs: Lungs clear to auscultation. No wheezing, rhonchi, rales.. Heart: RRR without murmur, gallop, or rubs. No ectopy. Health Maintenance List Influenza Vaccine(1) due on 05/03/2023 Mammogram Screening due on 07/31/2023 BP Controlled (<130/80) due on 11/20/2023 Annual PCP Team Chronic Disease Visit due on 06/04/2024 Diabetes Screening due on 02/20/2026 Colorectal Cancer Screening due on 06/27/2026 Lipid Screening due on 09/15/2027 DTaP,Tdap,Td Vaccine(3 - Td or Tdap) due on 12/18/2028 Bone Density Screening Completed Advance Directive Discussion Completed Depression Assessment Completed Hepatitis C Screening Completed Shingrix Vaccine Completed Pneumococcal Vaccine: 65+ Completed Alpha-1 Antitrypsin Deficiency Screening Discontinued Spirometry Discontinued Pap Testing Discontinued Covid-19 Vaccine Discontinued Data reviewed A/P ASSESSMENT/PLAN: 1. Bronchitis - ICD9: 490, ICD10: J40 (primary diagnosis) - will place on Z-naseem - will place of medrol dose pack and tessalon pearls. 2. Asthma with COPD with exacerbation (HCC) - ICD9: 493.22, ICD10: J44.1, J45.901 - will place on medrol dose pack 3. Suspected COVID-19 virus infection - ICD9: V01.79, ICD10: Z20.822 Check - COVID & INFLUENZA A/B & RSV NAAT, ROUTINE - COVID NAAT, UPPER RESPIRATORY, ROUTINE - ROUTINE FLU A/B + RSV Patient is beyond the number of days to be able to treat for COVID or flu. Requested Prescriptions Signed Prescriptions Disp Refills methylPREDNISolone (MEDROL, NASEEM,) 4 mg Dose-Pack 21 tablet 0 Sig: Follow dosing instructions, take with food. Benzonatate 200 mg capsule 45 capsule 1 Sig: Take 1 capsule by mouth three times a day as needed. azithromycin (ZITHROMAX Z-NASEEM) 250 mg tablet 6 tablet 0 Sig: Take 2 tablets day one, then, 1 tablet daily until gone. F/u if not improving Rito Camp MD [facility] Miscellaneous Notes* Telephone Encounter - Kami Salas Ma - 06/06/2023 9:01 AM EDT Pt notified. * Telephone Encounter - Alex Brown APRN.CNP - 06/06/2023 8:48 AM EDT Please let patient know her WBC is slightly elevated which is not surprising due to recent small bowel obstruction. Would recommend repeating cbc in 2 weeks. * Telephone Encounter - Albania Gill RN - 06/05/2023 1:19 PM EDT Patient call and asking about lab results. Please review and advise, Albania Gill RN documented in this encounterPark[facility]10-[facility] History of Present illness Narrative* Alex Brown APRN.CNP - 06/04/2023 10:58 AM EDT Chief Complaint Patient presents with: Hospital F/U HPI Diony Ramirez is a 68 year old female who presents here today for Above Complaints.. Patient presents for hospital follow up. Patient was hospitalized with small bowel obstruction at [facility]. Patient was seen by surgery while inpatient but did not require surgery. Patient has a past history of 3 bowel obstructions with 1st one in March of 2022. Patient only abdominal surgery is tubal ligation. Past medical history, appointments, medications, allergies reviewed. Previous Medical History PAST MEDICAL HISTORY Diagnosis Date Abnormal toxicological findings 02/01/2021 Tox screen 01/27/2021 showed no benzos and pos for oxycodone which patient was not on. Patient informed of no further controlled med refills. 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 Chronic anxiety 06/17/2018 Degenerative arthritis of lumbar spine 05/06/2014 Ectatic thoracic aorta (HCC) 12/04/2022 CT done 12/2022 Elevated blood sugar 01/27/2021 Emphysema of lung (HCC) 03/18/2015 Essential hypertension, benign 02/21/2015 Ex-smoker 01/27/2021 Started around 89 and quit 2004. Smoked about 1.5 PPD GERD without esophagitis 09/12/2022 Herpes 01/27/2021 History of 2019 novel coronavirus disease (COVID-19) 01/27/202106/2020 HSV (herpes simplex virus) anogenital infection 02/08/2016 Living will on file at physician's office 09/27/2022 DPA: Reina Denise (aunt) Lung mass 09/07/2011 Lung nodules 05/30/[address] Suleman Gustafson Medicare annual wellness visit, subsequent 01/27/2021 Medicare Part B: NA Last done: Multiple thyroid nodules 01/27/[address] Vigil and f/u was stable. Told no need for further f/u. 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 Takes mid morning. Substance agreement signed and Tox screen done 12/2020. 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 COLONOSCOPY FLX DX W/COLLJ SPEC WHEN PFRMD 08/19/2006 Repeat in COLONOSCOPY FLX DX W/COLLJ SPEC WHEN PFRMD 06/27/2016 Colonoscopy CRANIOPLASTY SKULL DEF/REPAIR/ BRAIN 09/14/2014 See scanned documents - status post ESOPHAGOGASTRODUODENOSCOPY TRANSORAL DIAGNOSTIC 06/27/2016 EGD ESOPHAGOGASTRODUODENOSCOPY TRANSORAL DIAGNOSTIC 06/30/2018 EGD I&D ABSCESS CMPLX/MULT 07/2013 Epidural abscess- MSSA LIG/TRNSXJ FLP TUBE ABDL/VAG APPR UNI/BI Tubal ligation PAST SURGICAL HISTORY OF spinal surgery PAST SURGICAL HISTORY OF retinal detachment OD, (2 tears) PAST SURGICAL HISTORY OF 2012 back surgery STRESS TEST NUCLEAR 05/23/2021 negative Family History FAMILY HISTORY Problem Relation Age of Onset Hypertension Mother other (cerebral aneurysm) Mother Colon Polyps Father Hypertension Father COPD Father Cancer Father Bladder Cancer other (Past medical history) Father abdominal aneurysm/bladder cancer other (aortic aneurysm) Father Aneurysm Paternal Grandfather Patient Allergies ALLERGIES Allergen Reactions Fish Unknown Horse Serum [Other] Unknown Lisinopril Cough Seafood [Other] Unknown Current Medications Current Outpatient Medications on File Prior to Visit Medication Sig FOLIC ACID ORAL Take by mouth as directed. baclofen 10 mg tablet Take 1 tablet by mouth three times daily as needed (muscle spasms). hydrOXYzine HCl (ATARAX) 10 mg tablet Take 1 tablet by mouth daily at bedtime. traZODone (DESYREL) 150 mg tablet Take 1 tablet by mouth daily at bedtime. denosumab (PROLIA) 60 mg/mL 60 mg once every 6 months, per Endo: Dr. mckee (Patient not taking: Reported on 05/14/2023) cetirizine (ZYRTEC) 10 mg tablet Take 1 tablet by mouth once daily. fluticasone (FLONASE) 50 mcg/actuation nasal spray Use 2 Sprays in each nostril once daily. Rinse mouth after use. amLODIPine (NORVASC) 2.5 mg tablet Take 1 tablet by mouth once daily. omeprazole (PRILOSEC) 40 mg capsule Take 1 capsule by mouth once daily. acyclovir (ZOVIRAX) 400 mg tablet Take 1 tablet by mouth twice daily. ZINC ORAL Take by mouth as directed. SYMBICORT 160-4.5 mcg/actuation inhaler SPIRIVA RESPIMAT 2.5 mcg/actuation inhaler (Patient not taking: Reported on 05/14/2023) BIOTIN ORAL Take 5,000 mcg by mouth. ascorbic acid/collagen hydr (COLLAGEN PLUS VITAMIN C ORAL) Take 1,000 mg by mouth twice daily. albuterol HFA (PROAIR HFA) 90 mcg/actuation inhaler Inhale 2 Puffs as instructed every 4 hours as needed for Wheezing/Shortness of Breath. Melatonin 5 mg cap 5 mg by mouth taken 2 hours prior to bedtime (Patient taking differently: 10 mg.5 mg by mouth taken 2 hours prior to bedtime) Ascorbic Acid (VITAMIN C) 1,000 mg TbER Take by mouth. Calcium Carb-Cholecalciferol (CALCIUM 600 WITH VITAMIN D3) 600-200 mg-unit ORAL Tab Take one(1) tablet two(2) times daily. No current facility-administered medications on file prior to visit. Social History Social History Tobacco Use Smoking status: Former Packs/day: 1.50 Years: 15.00 Additional pack years: 0.00 Total pack years: 22.50 Types: Cigarettes Quit date: 07/31/2005 Years since quittin.8 Smokeless tobacco: Never Vaping Use Vaping Use: Never used Substance Use Topics Alcohol use: Yes Alcohol/week: 25.0 - 37.5 standard drinks of alcohol Types: 10 - 15 Cans of Beer (12oz) per week Comment: 5-8 beers daily Drug use: No Review of Symptoms REVIEW OF SYSTEMS SEE HPI EXAM: BP 118/80 Pulse 104 Resp 14 Wt 39.9 kg (88 lb) LMP 03/23/2007 BMI 19.04 kg/m General Appearance: Well appearing, alert, in no acute distress, well-hydrated, well nourished.. Lungs: Lungs clear to auscultation. No wheezing, rhonchi, rales.. Heart: RRR without murmur, gallop, or rubs. No ectopy. Abdomen: Normal abdominal exam, Abdomen soft, non-tender. Bowel sounds normal. No masses, organomegaly Health Maintenance List Influenza Vaccine(1) due on 05/03/2023 Mammogram Screening due on 07/31/2023 BP Controlled (<130/80) due on 11/20/2023 Annual PCP Team Chronic Disease Visit due on 05/14/2024 Diabetes Screening due on 02/20/2026 Colorectal Cancer Screening due on 06/27/2026 Lipid Screening due on 09/15/2027 DTaP,Tdap,Td Vaccine(3 - Td or Tdap) due on 12/18/2028 Bone Density Screening Completed Advance Directive Discussion Completed Depression Assessment Completed Hepatitis C Screening Completed Shingrix Vaccine Completed Pneumococcal Vaccine: 65+ Completed Alpha-1 Antitrypsin Deficiency Screening Discontinued Spirometry Discontinued Pap Testing Discontinued Covid-19 Vaccine Discontinued ASSESSMENT/PLAN: 1. S/p small bowel obstruction - ICD9: V12.79, ICD10: Z87.19 - CBC + DIFF - CONSULT TO GENERAL SURGERY Alex Brown APRN.SENIOR INFORMATICA DEVELOPER documented in this [facility]10-[facility]23 Miscellaneous Notes* Telephone Encounter - Albania Gill RN - 06/03/2023 11:20 AM EDT TRANSITION CARE MANAGEMENT (TCM) INITIAL CONTACT Food Preparation Supervisor Outreach Provider Action/FYI: Patient calls and wanted provider to know that she was admitted to [facility] on Saturday night with small bowel obstruction. Small bowel obstruction has since resolved. Patient states that they are not sure why this keeps happening. It may be due to previous surgery (tubal ligation). Patient states that they thought they might have had to go to surgery when it resolved. Initial contact with patient post discharge, spoke to patient. Patient identified by name and . TRANSITION CARE MANAGEMENT INITIAL OUTREACH DOCUMENTATION: No flowsheet data found. SUMMARY: -Pt discharged from [facility] on 06/02/2023. -Admitted for: Small Bowel Obstruction Do you have a hospital follow up appointment with your PCP? Appointment on 06/04/2023 with Alex Brown. Yes. Remind patient of appointment date, time, and location. If not within 14 calendar days of discharge - please reschedule accordingly. MEDICATIONS: Many patients have questions or concerns about their medications once they are home. Were you prescribed any new medications? No Were you told to hold any medications? No Were any of your medications discontinued? No Do you have any questions about getting or taking your medications? No Your discharge instructions/After visit Summary (AVS) are important in guiding you through the recovery process. Is there anything I might help you understand? No Do you have all the necessary equipment and supplies at home? Yes Medical records from recent hospitalization: Care Everywhere documented in this encounterParkwood Hospital10-01-2023 Progress note Author Jazz Collins [facility] June 02, 2023 10:33am Note Date/Time June 02, 2023 8: 58am [facility] Medical Records Department [address] [place] [address] Progress Note - Surgery 06/02/23 0857 MR#: [id number] Acct: [id number] Name: JENA RAMIREZ Rep #:[id number] : 1955 68 From: Jazz Collins MD PCP: Dr. Rito Camp MD Status:ADM [facility] Subjective Subjective + flatus, denies abd pain, KUB shows contrast in colon but yesterday after 5 hr was still in SB. Objective Data Objective Data Vital Signs: Vital Signs Temp Pulse Resp BP Pulse Ox O2 Del Method 98.5 F 95 18 149/89 H 96 Room Air 06/02/23 07:48 06/02/23 07:48 06/02/23 07:48 06/02/23 07:48 06/02/23 07:48 06/02/23 07:48 Oxygen Delivery Method Room Air Weight: 89 lb 0.01 oz Body Mass Index (BMI) 19.2 Intake & Output: Intake and Output for Last 24 Hours 05/31/23 06/01/23 06/02/23 23:59 23:59 23:59 Intake Total 3140.00 / 3140.00 1011.67 / 1011.67 Output Total 1275 / 1275 400 / 400 Balance 1865.00 / 1865.00 611.67 / 611.67 Medical Nutrition Assessment Dietitian: Malnutrition Criteria Met Start: 06/01/23 11:54 Freq: Status: Active Protocol: Document 06/01/23 11:54 AG (Rec: 06/01/23 11:54 AG [id number]) Nutrition Malnutrition Evidence of Malnutrition Exists Yes Malnutrition (moderate): Chronic Evidenced By Suboptimal Energy Intake ( Moderate),Weight Loss ( Moderate),Physical Changes ( Mild) Clinical Problem Chronic Disease or Condition Related Malnutrition Etiology chronic, moderate malnutrition related to inadequate energy intake w/ decreased appetite Signs/Symptoms as evidenced by unintentional wt loss of 7.8#/8% wt loss x 3 months, mild muscle wasting/ fat loss in upper extremities, orbital, clavicle and acromion areas, estimated PO intake meeting <75% of estimated energy needs > 3 months Status Active Problem Recommendation Dietitian Recommendations/Changes recommend advance diet as tolerated to transitional; ensure w/ medpass when PO diet advanced given evidence of malnutrition Lab / Micro Data 06/02/23 06:25 06/02/23 06:25 Labs: Laboratory Results - last 24 hr 06/02/23 06:25: WBC 10.6, RBC 4.22, Hgb 14.1, Hct 43.4, MCV 102.8 H, MCH 33.4 H,MCHC 32.5, RDW Std Deviation 47.8 H, RDW Coeff of Jordon 12.6, Plt Count 266, MPV 9.4, Immature Gran % (Auto) 0.400, Neut % (Auto) 74.5 H, Lymph % (Auto) 12.6 L, Barnes % (Auto) 10.5 H, Eos % (Auto) 1.3, Baso % (Auto) 0.7, Absolute Neuts (auto)7.9 H, Absolute Lymphs (auto) 1.34, Nucleated RBC % 0, Sodium 142, Potassium 3.6, Chloride 110 H, Carbon Dioxide 23.0, Anion Gap 9, BUN 16, Creatinine 0.58, Estim Creat Clear Calc 34.79, Est GFR (MDRD) Af Amer 134, Est GFR (MDRD) Non-Af 111, BUN/Creatinine Ratio 27.7 H, Glucose 74, Calcium 8.0 L Radiography Diagnostic Testing: Radiology Impression KUB X-Ray 06/01/23 07:50 IMPRESSION: No acute findings, retained stool Enteric tube tip in the body of the stomach Electronically Signed: Santi Person MD at 9:05 EDT , Small Bowel X-Ray 06/01/23 07:56 IMPRESSION: Ileus or resolving small bowel obstruction. Electronically Signed: Dacia Wheat MD at 7:57 EDT Reading Location ID and State: [facility] / [place] Tel , Service support , Physical Exam Const oriented x3 and no apparent distress Resp normal respiratory effort Cardio regular rate GI soft to palpation and non-tender Inspection: Negative for abdominal distention Assessment & Plan Assessment/Plan (1) SBO (small bowel obstruction): (2) Abdominal pain: PLAN: Plan contrast is in colon on this AM, + flatus no BM, will try clears w NG clamped for 3 hrs and check residual/if pt is N; if nauseated w hook back up NG. pt agreeable w plan. Jazz Collins M.D. Pager: [phone] [facility] [address] [place] [address], Outpatient [place], [address] [place] [address] Office: [phone] Charges/Coding Visit Charges Inpatient E&M: 82891 Subs Hosp L2 06/02/23 1033 <Electronically signed by Jazz Collins MD> Cosigner Signature (if applicable): CC: ~ Signed [facility] Work Phone: 1(457) 663-304510-01-2023 Progress note Author Mick Pelletier [facility] June 02, 2023 9:03am Note Date/Time June 02, 2023 9: 03am [facility] Medical Records Department [address] [place] [address] Progress Note - Hospitalist 06/02/23 0859 MR#: [id number] Acct: [id number] Name: JENA RAMIREZ Rep #:[id number] : 1955 68 From: Mick puckett MD PCP: Dr. Rito Camp MD Status:ADM IN Location: [facility] EI196-9 Subjective Subjective Still some abdominal pain, still having NG output Objective Data Objective Data Vital Signs: Vital Signs Temp Pulse Resp BP Pulse Ox O2 Del Method 98.5 F 95 18 149/89 H 96 Room Air 06/02/23 07:48 06/02/23 07:48 06/02/23 07:48 06/02/23 07:48 06/02/23 07:48 06/02/23 07:48 Oxygen Delivery Method Room Air Weight: 89 lb 0.01 oz Body Mass Index (BMI) 19.2 Intake & Output: Intake and Output for Last 24 Hours 06/01/23 06/02/23 06/03/23 03:59 03:59 03:59 Intake Total 3140.00 / 3140.00 981.67 / 981.67 Output Total 1275 / 1275 400 / 400 Balance 1865.00 / 1865.00 581.67 / 581.67 Medical Nutrition Assessment Dietitian: Malnutrition Criteria Met Start: 06/01/23 11:54 Freq: Status: Active Protocol: Document 06/01/23 11:54 AG (Rec: 06/01/23 11:54 AG [id number]) Nutrition Malnutrition Evidence of Malnutrition Exists Yes Malnutrition (moderate): Chronic Evidenced By Suboptimal Energy Intake ( Moderate),Weight Loss ( Moderate),Physical Changes ( Mild) Clinical Problem Chronic Disease or Condition Related Malnutrition Etiology chronic, moderate malnutrition related to inadequate energy intake w/ decreased appetite Signs/Symptoms as evidenced by unintentional wt loss of 7.8#/8% wt loss x 3 months, mild muscle wasting/ fat loss in upper extremities, orbital, clavicle and acromion areas, estimated PO intake meeting <75% of estimated energy needs > 3 months Status Active Problem Recommendation Dietitian Recommendations/Changes recommend advance diet as tolerated to transitional; ensure w/ medpass when PO diet advanced given evidence of malnutrition Lab / Micro Data 06/02/23 06:25 06/02/23 06:25 Labs: Laboratory Results - last 24 hr 06/02/23 06:25: WBC 10.6, RBC 4.22, Hgb 14.1, Hct 43.4, MCV 102.8 H, MCH 33.4 H,MCHC 32.5, RDW Std Deviation 47.8 H, RDW Coeff of Jordon 12.6, Plt Count 266, MPV 9.4, Immature Gran % (Auto) 0.400, Neut % (Auto) 74.5 H, Lymph % (Auto) 12.6 L, Barnes % (Auto) 10.5 H, Eos % (Auto) 1.3, Baso % (Auto) 0.7, Absolute Neuts (auto)7.9 H, Absolute Lymphs (auto) 1.34, Nucleated RBC % 0, Sodium 142, Potassium 3.6, Chloride 110 H, Carbon Dioxide 23.0, Anion Gap 9, BUN 16, Creatinine 0.58, Estim Creat Clear Calc 34.79, Est GFR (MDRD) Af Amer 134, Est GFR (MDRD) Non-Af 111, BUN/Creatinine Ratio 27.7 H, Glucose 74, Calcium 8.0 L Radiography Diagnostic Testing: Radiology Impression KUB X-Ray 06/01/23 07:50 IMPRESSION: No acute findings, retained stool Enteric tube tip in the body of the stomach Electronically Signed: Santi Person MD at 9:05 EDT , Small Bowel X-Ray 06/01/23 07:56 IMPRESSION: Ileus or resolving small bowel obstruction. Electronically Signed: Dacia Wheat MD at 7:57 EDT , Physical Exam Narrative General: Alert, Oriented x3, Cooperative, No apparent distress HEENT: Atraumatic, PERRLA, EOMI, Normocephalic, NG tube in place Oral: Moist Mucosa Neck: Supple, No JVD Lungs: Diminished, Normal air movement, No rhonchi, No wheeze, No rales Cardiovascular: Regular rate, Regular Rhythm, Normal S1, Normal S2, No murmurs Abdomen: Soft, Non Tender, Non-Distended, No Hepato-splenomegaly Extremities: No edema, Capillary Refill Less than 3 Seconds Skin: No rashes, No breakdown Musculoskeletal: No Tenderness to Palpation of Joints or Extremities Neurological: Cranial nerves II-XII grossly intact, Motor Exam 5/5 strength throughout, Sensory exam intact to light touch and pain Psych/Mental Status: Normal Affect, Appropriate Assessment & Plan Assessment/Plan (1) SBO (small bowel obstruction): (2) Alcoholism: PLAN: Plan 1. Small bowel obstruction ? It appears to be resolving, there is contrast in the colon though she is stillhaving NG output ? Appreciate surgery's assistance with NG management and diet advancement 2. HTN/HLD ? Blood pressures are stable continue to monitor ? Continue with her home medications 3. Anxiety/depression/alcohol abuse ? Continue with the CIWA protocol ? Continue with her home mental health medications 4. GERD ? Stable ? Continue with PPI 5. COPD ? Not in exacerbation ? She can continue with her home inhalers DVT: SCDs Charges/Coding Visit Charges Inpatient E&M: 12448 Subs Hosp L2 06/02/23 0903 <Electronically signed by Mick Pelletier MD> Cosigner Signature (if applicable): CC: ~ Signed [facility] Work Phone: 1(367) 974-438909-30-2023 Consult note Author Jazz Collins [facility] June 01, 2023 8:39am Note Date/Time June 01, 2023 7:50am [facility] Medical Records Department [address] [place] [address] Consultation - Surgical 06/01/23 0750 MR#: [id number] Acct: [id number] Name: JENA RAMIREZ Rep #:[id number] : 1955 68 From: Jazz Collins MD PCP: Dr. Rito Camp MD Status:[facility]M [facility] Assessment & Plan Assessment/Plan (1) SBO (small bowel obstruction): (2) Abdominal pain: PLAN: Plan We will continue n.p.o./NG. We will plan for modified small bowel follow-through with Gastrografin today. If that is able to get through to the colon?patient's NG would be removed and patient restarted on clears. Patient is aware that if this does not improve there could be a need to do surgery however I do think there is is a lower likelihood as she feels better this morning and resolved pretty quickly last time. Jazz Collins M.D. Pager: [phone] [facility] [address] [place] [address], Outpatient [address], [address] [place] [address] Office: [phone] HPI Consult Data Date of Consult: 06/01/23 HPI Narrative Reason for Consultation: SBO HPI Narrative: JENA RAMIREZ, is a 68 F who presents to the ER due to abdominal pain starting about 1 to 2 PM today, waxing and waning initially. Patient did have some nausea and vomiting with this. Patient did try taking Pepto-Bismol and some Tums but likely threw that back up. This was similar to her patient's last episode in March 2022 where she was hospitalized for about a day due to small bowel obstruction was able to be treated conservatively and DC'd home after NG. Patient's only abdominal surgery is a tubal ligation. Patient did have 2 normalbowel movements yesterday. Patient states her abdomen feels better this morningNG was placed in the ER had about 200 mostly saliva looking in the canister thismorning. CT abdomen pelvis did show some dilated small bowel, some mild small bowel mesenteric edema. Patient white blood cell count admit was 13.8 currentlyis 11.7. [facility] Medical History Alcohol abuse Anxiety associated with depression Arnold-Chiari deformity Asthma Benign essential HTN Cervicalgia Chronic interstitial cystitis Chronic pain disorder Climacteric COPD (chronic obstructive pulmonary disease) COPD, moderate COVID-19 RODRIGUEZ (dyspnea on exertion) Emphysema of lung Esophageal obstruction due to food impaction Former smoker Generalized hyperhidrosis HSV (herpes simplex virus) anogenital infection Hypertension Lumbar spinal stenosis Lung mass Osteoporosis Overactive bladder Partial small bowel obstruction Peripheral neuropathy Postmenopausal atrophic vaginitis Recurrent manic disorder Sleep-related breathing disorder Stage 2 moderate COPD by GOLD classification Uterine fibroid Vitamin D toxicity Home Medications melatonin 10 mg sublingual tablet 10 mg PO QHS sleeping pill 05/20/18 [History Last Taken 03/16/22 21:00] trazodone 100 mg tablet 100 mg PO QHS sleep 05/20/18 [History Last Taken 03/16/22 21:00] ascorbic acid (vitamin C) 500 mg tablet,extended release 1,000 mg PO DAILY supplement 06/26/18 [History Last Taken 03/16/22 09:00] biotin 5,000 mcg sublingual tablet 5,000 mcg sublingual DAILY supplement 02/23/21 [History Last Taken 03/16/22 09:00] omeprazole 40 mg capsule,delayed release 40 mg PO DAILY acid reflux 02/23/21 [History Last Taken 03/16/22 06:00] amlodipine 2.5 mg tablet (Norvasc) 5 mg PO DAILY Blood pressure 04/27/21 [History Last Taken 03/16/22 09:00] cyanocobalamin (vitamin B-12) 2,500 mcg tablet 2,500 mcg PO DAILY supplement 04/27/21 [History Last Taken 03/16/22 09:00] acyclovir 400 mg tablet 400 mg PO BID female issue 04/16/22 [History Last Taken Unknown] albuterol sulfate 90 mcg/actuation aerosol inhaler (ProAir HFA) 2 puff inhalation Q6H PRN shortness of breath or wheezing #3 ea 08/29/22 [Rx Last Taken Unknown] budesonide-formoterol HFA 160 mcg-4.5 mcg/actuation aerosol inhaler (Symbicort) 2 puff inhalation BID copd #3 ea 08/29/22 [Rx Last Taken Unknown] montelukast 10 mg tablet 10 mg PO QPM breathing #90 tabs 02/04/23 [Rx Last Taken Unknown] fluticasone propionate 50 mcg/actuation nasal spray,suspension (Flonase Allergy Relief) 2 spray intranasal DAILY allergies 04/17/23 [History Last Taken Unknown] calcium carbonate 600 mg calcium (1,500 mg) tablet (Calcium) 600 mg PO DAILY bones 06/01/23 [History Last Taken Unknown] hydroxyzine HCl 10 mg tablet 10 mg PO QHS sleep 06/01/23 [History Last Taken Unknown] Allergy/AdvReac Type Severity Reaction Status Date / Time Fish Containing Products Allergy Severe Angioedema Verified 05/31/23 21:50 shellfish derived Allergy Severe Angioedema Verified 05/31/23 21:50 Horse/Equine Containing Allergy Unknown NEEDS Verified 05/31/23 21:50 Products FOLLOW-UP lisinopril Allergy Unknown Unknown Verified 05/31/23 21:50 Family History Father Hypertension Aortic aneurysm Cancer skin and bladder Mother Brain aneurysm Surgical History H/O eye surgery H/O Spinal surgery History of bilateral tubal ligation S/P craniotomy Social History household members: none Smoking Status: Former smoker quit date: 09/02/10 pack-years: 57 second hand exposure: No alcohol intake: current alcohol intake frequency: 3 or more drinks per day Alcohol type: beer details: Drinks 5-6 beers daily, nearly no breaks in her days of intake. substance use type: does not use caffeine: Yes what type of physical activity do you participate in: none ROS Constitutional Constitutional: Denies fever(s) Eyes Eyes: Denies loss of central vision ENT HEENT: Denies dysphagia Cardiovascular Cardiovascular: Denies chest pain Respiratory/Chest Respiratory/Chest: Denies dyspnea Gastrointestinal Gastrointestinal: Reports abdominal pain, nausea and vomiting; Denies coffee ground emesis, constipation, diarrhea or hematochezia Genitourinary Genitourinary: Denies dysuria Musculoskeletal Musculoskeletal: Denies joint swelling Integumentary Integumentary: Denies rash Neurologic Neurologic: Denies dizziness Psychiatric Psychiatric: Denies anxiety or depression Hematologic/Lymphatic Hematologic/Lymphatic: Denies easy bleeding Physical Exam Const alert, oriented x3 and no apparent distress HEENT normocephalic and head/scalp atraumatic Eyes conjunctivae normal Neck supple Resp normal respiratory effort Cardio regular rate GI soft to palpation; Negative for non-distended Palpation: tender other (Minimal supraumbilical, no peritoneal signs); Negative for guarding Extremity no clubbing, cyanosis or edema Skin no rashes or lesions noted Neuro CN's II-XII intact bilaterally Psych mental status grossly normal Lab / Micro Data 06/01/23 06:26 06/01/23 06:26 Labs: Laboratory Results - last 24 hr 05/31/23 22:32: WBC 13.8 H, RBC 4.61, Hgb 15.6 H, Hct 45.6, MCV 98.9, MCH 33.8 H, MCHC 34.2, RDW Std Deviation 44.8 H, RDW Coeff of Jordon 12.3, Plt Count 299, MPV9.4, Immature Gran % (Auto) 0.400, Neut % (Auto) 76.5 H, Lymph % (Auto) 13.7 L, Barnes % (Auto) 7.4, Eos % (Auto) 1.4, Baso % (Auto) 0.6, Absolute Neuts (auto) 10.6 H, Absolute Lymphs (auto) 1.89, Nucleated RBC % 0, Sodium 135 L, Potassium 4.1, Chloride 101, Carbon Dioxide 29.0, Anion Gap 5, BUN 12, Creatinine 0.63, Estim Creat Clear Calc 35.96, Est GFR (MDRD) Af Amer 121, Est GFR (MDRD) Non-Af 100, BUN/Creatinine Ratio 19.0, Glucose 101, Lactic Acid 1.0, Calcium 8.9 05/31/23 22:53: Urine Color Yellow, Urine Clarity Clear, Urine pH 7.0, Ur Specific Davenport 1.010, Urine Protein Negative, Urine Glucose (UA) Normal, UrineKetones Negative, Urine Occult Blood 25 H, Urine Nitrite Negative, Urine Bilirubin Negative, Urine Urobilinogen Normal, Ur Leukocyte Esterase Negative, Urine RBC 0 SEEN, Urine WBC 0 SEEN, Ur Squamous Epith Cells 0-5 SEEN, Urine Bacteria 0 SEEN, Urine Mucus 0 SEEN 06/01/23 06:26: WBC 11.7 H, RBC 4.66, Hgb 15.5 H, Hct 46.9, MCV 100.6 H, MCH 33.3 H, MCHC 33.0, RDW Std Deviation 46.2 H, RDW Coeff of Jordon 12.4, Plt Count 286, MPV 9.1, Immature Gran % (Auto) 0.300, Neut % (Auto) 84.7 H, Lymph % (Auto)8.4 L, Barnes % (Auto) 5.7, Eos % (Auto) 0.3, Baso % (Auto) 0.6, Absolute Neuts (auto) 9.9 H, Absolute Lymphs (auto) 0.99, Nucleated RBC % 0, Sodium 137, Potassium 4.0, Chloride 106, Carbon Dioxide 29.0, Anion Gap 2 L, BUN 10, Creatinine 0.48 L, Estim Creat Clear Calc 34.79, Est GFR (MDRD) Af Amer 165, EstGFR (MDRD) Non-Af 136, BUN/Creatinine Ratio 20.7 H, Glucose 99, Calcium 8.2 L Radiology Impression Abdomen/Pelvis CT 05/31/23 22:01 IMPRESSION: 1. Evidence of small bowel obstruction with mesenteric edema and tracking free fluid mostly on the left. A discrete transition point is not visualized. 2. Centrilobular emphysema. 3. Colonic diverticulosis without discrete evidence of acute diverticulitis on this noncontrast examination. Electronically Signed: Dereck Rodrigues DO at 23:36 EDT , ADDENDUM: 05/31/23 2346 IMPRESSION: 1. Evidence of small bowel obstruction with mesenteric edema and tracking free fluid mostly on the left. A discrete transition point is not visualized. 2. Centrilobular emphysema. 3. Colonic diverticulosis without discrete evidence of acute diverticulitis on this noncontrast examination. N.B. : The above Results were Read Back by Dereck Rodrigues DO to Tyler Green DO, and understanding confirmed on 05/31/2023 23:39:55 (ET). Electronically Signed: Dereck Rodrigues DO at 23:36 EDT , KUB X-Ray 06/01/23 00:05 IMPRESSION: Enteric tube with tip in the body of the stomach. Electronically Signed: Jeancarlos Kearns MD at 0:55 EDT , Charges/Coding Visit Charges Inpatient E&M: 80916 Init Hosp L3 06/01/23 0839 <Electronically signed by Jazz Collins MD> Cosigner Signature (if applicable): CC: Dr. Rito Camp MD; Dr. Boby Jordan MD; Dr. Jazz Collins MD~ Signed [facility] Work Phone: 1(942) 963-901209-30-2023 History and physical note Author Boby Jordan [facility] Ree 30th, 2023 5:38am Note Date/Time June 01, 2023 12:53am [facility] Medical Records Department [address] [place] [address] H&P Exam - Hospitalist 06/01/23 0052 MR#: [id number] Acct: [id number] Name: JENA RAMIREZ Rep #:[id number] : 1955 68 From: Boby Jordan MD PCP: Dr. Rito Camp MD Status:ADM IN Location: [facility] ZV726-8 HPI - General General Date of Admission: 06/01/23 Date of Service: 06/01/23 Chief Complaint: Abdominal pain HPI Narrative JENA RAMIREZ, is a 68 F with a significant history of COPD, asthma, alcohol abuse, tubal ligation and small bowel obstruction presents emergency department with excruciating lower abdominal pain that started about 8 hours before presentation. Initially her pain would ease up and then return . However with time her pain became persistent. She describes her pain as aching and cramping. She denies any aggravating or ameliorating factors to the pain. Earlier on before her pain started her bowels moved and even after her pain started her bowels moved again. She reports some nausea and vomiting. At the emergency department patient was found to have small bowel obstruction. ED doctor discussed with general surgeon who recommend that an NG tube be placedin anticipation that with the NG tube patient's room obstruction will be resolved as it did a year ago when an NG tube was placed. [facility] Medical History Alcohol abuse Anxiety associated with depression Arnold-Chiari deformity Asthma Benign essential HTN Cervicalgia Chronic interstitial cystitis Chronic pain disorder Climacteric COPD (chronic obstructive pulmonary disease) COPD, moderate COVID-19 RODRIGUEZ (dyspnea on exertion) Emphysema of lung Esophageal obstruction due to food impaction Former smoker Generalized hyperhidrosis HSV (herpes simplex virus) anogenital infection Hypertension Lumbar spinal stenosis Lung mass Osteoporosis Overactive bladder Partial small bowel obstruction Peripheral neuropathy Postmenopausal atrophic vaginitis Recurrent manic disorder Sleep-related breathing disorder Stage 2 moderate COPD by GOLD classification Uterine fibroid Vitamin D toxicity Home Medications melatonin 10 mg sublingual tablet 10 mg PO QHS sleeping pill 05/20/18 [History Last Taken 03/16/22 21:00] trazodone 100 mg tablet 100 mg PO QHS sleep 05/20/18 [History Last Taken 03/16/22 21:00] ascorbic acid (vitamin C) 500 mg tablet,extended release 1,000 mg PO DAILY supplement 06/26/18 [History Last Taken 03/16/22 09:00] biotin 5,000 mcg sublingual tablet 5,000 mcg sublingual DAILY supplement 02/23/21 [History Last Taken 03/16/22 09:00] omeprazole 40 mg capsule,delayed release 40 mg PO DAILY acid reflux 02/23/21 [History Last Taken 03/16/22 06:00] amlodipine 2.5 mg tablet (Norvasc) 5 mg PO DAILY Blood pressure 04/27/21 [History Last Taken 03/16/22 09:00] cyanocobalamin (vitamin B-12) 2,500 mcg tablet 2,500 mcg PO DAILY supplement 04/27/21 [History Last Taken 03/16/22 09:00] acyclovir 400 mg tablet 400 mg PO BID female issue 04/16/22 [History Last Taken Unknown] albuterol sulfate 90 mcg/actuation aerosol inhaler (ProAir HFA) 2 puff inhalation Q6H PRN shortness of breath or wheezing #3 ea 08/29/22 [Rx Last Taken Unknown] budesonide-formoterol HFA 160 mcg-4.5 mcg/actuation aerosol inhaler (Symbicort) 2 puff inhalation BID copd #3 ea 08/29/22 [Rx Last Taken Unknown] montelukast 10 mg tablet 10 mg PO QPM breathing #90 tabs 02/04/23 [Rx Last Taken Unknown] fluticasone propionate 50 mcg/actuation nasal spray,suspension (Flonase Allergy Relief) 2 spray intranasal DAILY allergies 04/17/23 [History Last Taken Unknown] calcium carbonate 600 mg calcium (1,500 mg) tablet (Calcium) 600 mg PO DAILY bones 06/01/23 [History Last Taken Unknown] hydroxyzine HCl 10 mg tablet 10 mg PO QHS sleep 06/01/23 [History Last Taken Unknown] Allergy/AdvReac Type Severity Reaction Status Date / Time Fish Containing Products Allergy Severe Angioedema Verified 05/31/23 21:50 shellfish derived Allergy Severe Angioedema Verified 05/31/23 21:50 Horse/Equine Containing Allergy Unknown NEEDS Verified 05/31/23 21:50 Products FOLLOW-UP lisinopril Allergy Unknown Unknown Verified 05/31/23 21:50 Family History Father Hypertension Aortic aneurysm Cancer skin and bladder Mother Brain aneurysm Surgical History H/O eye surgery H/O Spinal surgery History of bilateral tubal ligation S/P craniotomy Social History household members: none Smoking Status: Former smoker quit date: 09/02/10 pack-years: 57 second hand exposure: No alcohol intake: current alcohol intake frequency: 3 or more drinks per day Alcohol type: beer details: Drinks 5-6 beers daily, nearly no breaks in her days of intake. substance use type: does not use caffeine: Yes what type of physical activity do you participate in: none ROS ROS Narrative Pertinent positives and pertinent negatives as noted in HPI. All other systems were reviewed and are negative Vital Signs Vital Signs Vital Signs: 05/31/23 21:50 06/01/23 00:33 Temperature 97 F L Temperature Source Temporal Pulse Rate 88 91 Respiratory Rate 16 18 Blood Pressure 195/115 H 150/92 H Blood Pressure Mean 141 111 Pulse Ox 97 92 Oxygen Delivery Method Room Air Weight Weight: 41.73 kg Body Mass Index (BMI) 19.2 Physical Exam Narrative Physical exam: General: Well-nourished, well-developed. Head: Normocephalic, atraumatic, no tenderness Eyes: Vision is grossly intact. EOMI ENT, no trauma, moist mucous membranes, no rhinorrhea Neck: Nontender, No thyromegaly. CVS: Regular rate and rhythm. S1-S2 present. No murmur, gallop or rub. Respiratory : clear to auscultation bilaterally, chest wall nontender Abdomen: Soft, nontender, nondistended, normal bowel sounds, no masses : Deferred Back: Nontender, no CVA tenderness, no midline spinal tenderness, deformities, step-offs Extremities: Nontender full range of motion, no trauma Skin: Normal color, no trauma, abrasions Neuro: Alert, oriented, cranial nerves II through XII grossly intact. Psychiatry: Normal mood. Normal affect. Not depressed. Not anxious. Results Lab / Micro Data 05/31/23 22:32 05/31/23 22:32 Labs: Laboratory Results - last 24 hr 05/31/23 22:32: WBC 13.8 H, RBC 4.61, Hgb 15.6 H, Hct 45.6, MCV 98.9, MCH 33.8 H, MCHC 34.2, RDW Std Deviation 44.8 H, RDW Coeff of Jordon 12.3, Plt Count 299, MPV9.4, Immature Gran % (Auto) 0.400, Neut % (Auto) 76.5 H, Lymph % (Auto) 13.7 L, Barnes % (Auto) 7.4, Eos % (Auto) 1.4, Baso % (Auto) 0.6, Absolute Neuts (auto) 10.6 H, Absolute Lymphs (auto) 1.89, Nucleated RBC % 0, Sodium 135 L, Potassium 4.1, Chloride 101, Carbon Dioxide 29.0, Anion Gap 5, BUN 12, Creatinine 0.63, Estim Creat Clear Calc 35.96, Est GFR (MDRD) Af Amer 121, Est GFR (MDRD) Non-Af 100, BUN/Creatinine Ratio 19.0, Glucose 101, Lactic Acid 1.0, Calcium 8.9 05/31/23 22:53: Urine Color Yellow, Urine Clarity Clear, Urine pH 7.0, Ur Specific Davenport 1.010, Urine Protein Negative, Urine Glucose (UA) Normal, UrineKetones Negative, Urine Occult Blood 25 H, Urine Nitrite Negative, Urine Bilirubin Negative, Urine Urobilinogen Normal, Ur Leukocyte Esterase Negative, Urine RBC 0 SEEN, Urine WBC 0 SEEN, Ur Squamous Epith Cells 0-5 SEEN, Urine Bacteria 0 SEEN, Urine Mucus 0 SEEN Radiology Impression Abdomen/Pelvis CT 05/31/23 22:01 IMPRESSION: 1. Evidence of small bowel obstruction with mesenteric edema and tracking free fluid mostly on the left. A discrete transition point is not visualized. 2. Centrilobular emphysema. 3. Colonic diverticulosis without discrete evidence of acute diverticulitis on this noncontrast examination. Electronically Signed: Dereck Rodrigues DO at 23:36 EDT , ADDENDUM: 05/31/23 2346 IMPRESSION: 1. Evidence of small bowel obstruction with mesenteric edema and tracking free fluid mostly on the left. A discrete transition point is not visualized. 2. Centrilobular emphysema. 3. Colonic diverticulosis without discrete evidence of acute diverticulitis on this noncontrast examination. N.B. : The above Results were Read Back by Dereck Rodrigues DO to Tyler Green DO, and understanding confirmed on 05/31/2023 23:39:55 (ET). Electronically Signed: Dereck Rodrigues DO at 23:36 EDT , Assessment & Plan Assessment/Plan (1) SBO (small bowel obstruction): (2) Alcoholism: PLAN: Plan Small bowel obstruction Radiologist impression of abdomen/pelvis CT 1. Evidence of small bowel obstruction with mesenteric edema and tracking free fluid mostly on the left. A discrete transition point is not visualized. 2. Centrilobular emphysema. 3. Colonic diverticulosis without discrete evidence of acute diverticulitis on this noncontrast examination. Abdomen/pelvis CT was independently interpreted I agree with the interpretation above. Conservative management with IV fluids, as needed antiemetics, pain control and general surgery consult. Initially patient was placed on morphine as needed she complains of headache and stating that the headache is found morphine. Morphine stopped.. As needed IV Toradol ordered. Alcohol abuse CIWA protocol ordered. Ativan as needed ordered. Patient counseled. DVT prophylaxis: SCDs ordered. Time spent in the patient's overall evaluation,decision-making process, review of diagnostic data, adjustment of management, discussion with other providers, nursing nursing and ancillary staff involved in patient's care documentation, 30minutes. Charges/Coding Visit Charges Inpatient E&M: 41564 Init Hosp L2 06/01/23 0538 <Electronically signed by Boby Jordan MD> Cosigner Signature (if applicable): CC: Dr. Rito Camp MD; Dr. Boby Jordan MD~ Signed [facility] Work Phone: 1(752) 254-233709-30-2023 Discharge summary Author Tyler Green [facility] June 01, 2023 12:41am Note Date/Time May 31, 2023 10:05pm [facility] Medical Records Department [address] [place] [address] Emergency Department Summary 05/31/23 MR#: [id number] Acct: [id number] Name: JENA RAMIREZ Rep #:[id number] : 1955 68 From: Tyler Faria PCP: Dr. Rito Camp MD Status:REG ER Location: ED HPI HPI - GI History of Present Illness Chief Complaint: Abd Pain Informant: patient Narrative Narrative: Patient with waxing and waning lower abdominal pain since 2 PM. Symptoms worsened over the past hour. Nausea due to pain. No vomiting. Had a bowel movement during this that was normal. No abdominal surgeries. No urinary symptoms. States 2 years ago she thinks had similar symptoms ended up with whatshe describes as an NG tube. There is no surgical intervention during the hospitalization. Prior similar symptoms: Yes PFSH PFSH Medical History Alcohol abuse Anxiety associated with depression Arnold-Chiari deformity Asthma Benign essential HTN Cervicalgia Chronic interstitial cystitis Chronic pain disorder Climacteric COPD (chronic obstructive pulmonary disease) COPD, moderate COVID-19 RODRIGUEZ (dyspnea on exertion) Emphysema of lung Esophageal obstruction due to food impaction Former smoker Generalized hyperhidrosis HSV (herpes simplex virus) anogenital infection Hypertension Lumbar spinal stenosis Lung mass Osteoporosis Overactive bladder Partial small bowel obstruction Peripheral neuropathy Postmenopausal atrophic vaginitis Recurrent manic disorder Sleep-related breathing disorder Stage 2 moderate COPD by GOLD classification Uterine fibroid Vitamin D toxicity Home Medications melatonin 10 mg sublingual tablet 10 mg PO QHS sleeping pill 05/20/18 [History Last Taken 03/16/22 21:00] trazodone 100 mg tablet 100 mg PO QHS sleep 05/20/18 [History Last Taken 03/16/22 21:00] ascorbic acid (vitamin C) 500 mg tablet,extended release 1,000 mg PO DAILY supplement 06/26/18 [History Last Taken 03/16/22 09:00] biotin 5,000 mcg sublingual tablet 5,000 mcg sublingual DAILY supplement 02/23/21 [History Last Taken 03/16/22 09:00] omeprazole 40 mg capsule,delayed release 40 mg PO DAILY acid reflux 02/23/21 [History Last Taken 03/16/22 06:00] amlodipine 2.5 mg tablet (Norvasc) 5 mg PO DAILY Blood pressure 04/27/21 [History Last Taken 03/16/22 09:00] calcium carbonate 600 mg-vitamin D3 12.5 mcg (500 unit) capsule (Calcium 600 with Vitamin D3) 2 cap PO DAILY supplement 04/27/21 [History Last Taken 03/16/22 09:00] cyanocobalamin (vitamin B-12) 2,500 mcg tablet 2,500 mcg PO DAILY supplement 04/27/21 [History Last Taken 03/16/22 09:00] acyclovir 400 mg tablet 400 mg PO BID 04/16/22 [History Last Taken Unknown] albuterol sulfate 90 mcg/actuation aerosol inhaler (ProAir HFA) 2 puff inhalation Q6H PRN shortness of breath or wheezing #3 ea 08/29/22 [Rx Last Taken Unknown] budesonide-formoterol HFA 160 mcg-4.5 mcg/actuation aerosol inhaler (Symbicort) 2 puff inhalation BID copd #3 ea 08/29/22 [Rx Last Taken Unknown] montelukast 10 mg tablet 10 mg PO QPM breathing #90 tabs 02/04/23 [Rx Last Taken Unknown] Prolia 60 mg/mL subcutaneous syringe (denosumab) 60 mg subcut [id number] #1 mL 02/25/23 [Rx Last Taken Unknown] fluticasone propionate 50 mcg/actuation nasal spray,suspension (Flonase Allergy Relief) 2 spray intranasal DAILY 04/17/23 [History Last Taken Unknown] Allergy/AdvReac Type Severity Reaction Status Date / Time Fish Containing Products Allergy Severe Angioedema Verified 05/31/23 21:50 shellfish derived Allergy Severe Angioedema Verified 05/31/23 21:50 Horse/Equine Containing Allergy Unknown NEEDS Verified 05/31/23 21:50 Products FOLLOW-UP lisinopril Allergy Unknown Unknown Verified 05/31/23 21:50 Family History Father Hypertension Aortic aneurysm Cancer skin and bladder Mother Brain aneurysm Surgical History H/O eye surgery H/O Spinal surgery History of bilateral tubal ligation S/P craniotomy Social History household members: none Smoking Status: Former smoker quit date: 09/02/10 pack-years: 57 second hand exposure: No alcohol intake: current alcohol intake frequency: 3 or more drinks per day Alcohol type: beer details: Drinks 5-6 beers daily, nearly no breaks in her days of intake. substance use type: does not use caffeine: Yes what type of physical activity do you participate in: none ROS ROS ED Constitutional Constitutional ED: Denies chills, fever(s) or sweats Eyes Eyes: Denies change in vision ENT ENT ED: Denies dysphagia or sore throat Cardiovascular Cardiovascular: Denies chest pain, leg edema, palpitations or racing heartbeat Respiratory/Chest Respiratory/Chest: Denies cough, dyspnea or dyspnea on exertion Gastrointestinal Gastrointestinal: Reports abdominal pain and nausea; Denies diarrhea or vomiting Genitourinary Genitourinary ED: Denies dysuria, hematuria or urinary frequency Musculoskeletal Musculoskeletal: Denies back pain, extremity pain or neck pain Integumentary Denies rash or wounds Neurologic Neurologic: Denies headache(s), paresthesias or weakness EXAM Physical Exam Const Vital Signs: 05/31/23 21:50 06/01/23 00:33 Temperature 97 F L Temperature Source Temporal Pulse Rate 88 91 Respiratory Rate 16 18 Blood Pressure 195/115 H 150/92 H Blood Pressure Mean 141 111 Pulse Ox 97 92 Oxygen Delivery Method Room Air Positive well nourished and well developed Constitutional Narrative: Nontoxic, uncomfortable General Appearance ED: well developed HEENT Reports moist mucous membranes normocephalic and atraumatic Eyes PERRL, EOMs intact bilaterally and conjunctivae normal General Eye ED: Yes normal appearance of both eyes Neck no lymphadenopathy and supple General: Negative for tenderness Chest Wall Chest: Negative for tenderness Resp normal respiratory effort and normal air movement Effort and Inspection: symmetric chest movement; Negative for respiratory distress Cardio regular rate, regular rhythm and no murmurs Peripheral Pulses: pulses 2+ throughout GI normal to inspection, nondistended, normoactive bowel sounds GI Narrative: Tender suprapubic there is no guarding or rebound. Negative Galindo's McBurney'stenderness. No left lower quadrant tenderness. Palpation: Negative for guarding or rebound tenderness present Back/Spine no CVA tenderness and no thoracic nor lumbar tenderness Extremity normal to inspection General Extremety ED: Negative for edema or tenderness General Extremity: Negative for edema Neuro oriented x3 and no sensory deficits noted Sensorium / Orientation: awake and alert Skin no rashes or lesions noted and no wounds MDM MDM MDM Narrative Medical decision making narrative: Interventions / MDM: Differential diagnosis: Bowel obstruction, abdominal pain Diagnosis considered but do not suspect: Appendicitis however negative on CT scan. Diverticulitis however negative on CT scan. My EKG interpretation: N/A Imaging independently reviewed and interpreted by myself: CT abdomen pelvis: Small bowel obstruction, KUB: NG tube in adequate position External documents reviewed: Previous records reviewed March 2022, work-up in theED had concerns for partial small bowel obstruction. Abdominal surgeries was only bilateral tubal ligation. She did have NG tube conservatively manage with improvement. Test considered but not ordered:N/A ED course: Patient lower abdominal pain progressing, reports similar symptoms with bowel obstructions. Laboratory studies drawn, morphine Zofran fluids started. CT scan ordered. Labs White count returned at the 0.8 urinary for infection. Creatinine 0.63. Lactic acid normal at 1. CT scan results interpreted myself and discussed with radiology concerns for small bowel obstruction. Normal appendix. No diverticulitis. Pain was controlled with 1 dose of pain medicines. I discussed with covering surgeon Dr. Collins who also managed her last year with her bowel obstruction, she improved with conservative management. She did recommend NG tube and requests admission to medicine for conservative treatment. NG tube tube was placed by nursing, KUB confirms placement. Patient did receive second dose of pain medicine after NG tube placement. I spoke with hospitalist, Dr. Jordan for admission. Re-evaluation: stable Disposition discussed with patient/family/significant other: Patient Case discussed with consulting clinician: General surgery, hospitalist This note was generated with [employer] software. It may contain incorrectwords, spelling, and punctuation that were not noted in checking the note beforesigning. Lab Data Attestation: I reviewed the patient's lab results. Labs: Laboratory Results - last 24 hr 05/31/23 05/31/23 22:32 22:53 WBC 13.8 H RBC 4.61 Hgb 15.6 H Hct 45.6 MCV 98.9 MCH 33.8 H MCHC 34.2 RDW Std Deviation 44.8 H RDW Coeff of Jordon 12.3 Plt Count 299 MPV 9.4 Immature Gran % (Auto) 0.400 Neut % (Auto) 76.5 H Lymph % (Auto) 13.7 L Barnes % (Auto) 7.4 Eos % (Auto) 1.4 Baso % (Auto) 0.6 Absolute Neuts (auto) 10.6 H Absolute Lymphs (auto) 1.89 Nucleated RBC % 0 Sodium 135 L Potassium 4.1 Chloride 101 Carbon Dioxide 29.0 Anion Gap 5 BUN 12 Creatinine 0.63 Estim Creat Clear Calc 35.96 Est GFR (MDRD) Af Amer 121 Est GFR (MDRD) Non-Af 100 BUN/Creatinine Ratio 19.0 Glucose 101 Lactic Acid 1.0 Calcium 8.9 Urine Color Yellow Urine Clarity Clear Urine pH 7.0 Ur Specific Davenport 1.010 Urine Protein Negative Urine Glucose (UA) Normal Urine Ketones Negative Urine Occult Blood 25 H Urine Nitrite Negative Urine Bilirubin Negative Urine Urobilinogen Normal Ur Leukocyte Esterase Negative Urine RBC 0 SEEN Urine WBC 0 SEEN Ur Squamous Epith Cells 0-5 SEEN Urine Bacteria 0 SEEN Urine Mucus 0 SEEN Radiography Diagnostic Testing: Clinical Impression(s) from Imaging Studies Abdomen/Pelvis CT 05/31/23 22:01 IMPRESSION: 1. Evidence of small bowel obstruction with mesenteric edema and tracking free fluid mostly on the left. A discrete transition point is not visualized. 2. Centrilobular emphysema. 3. Colonic diverticulosis without discrete evidence of acute diverticulitis on this noncontrast examination. Electronically Signed: Dereck Rodrigues DO at 23:36 EDT , ADDENDUM: 05/31/23 1203 IMPRESSION: 1. Evidence of small bowel obstruction with mesenteric edema and tracking free fluid mostly on the left. A discrete transition point is not visualized. 2. Centrilobular emphysema. 3. Colonic diverticulosis without discrete evidence of acute diverticulitis on this noncontrast examination. N.B. : The above Results were Read Back by Dereck Rodrigues DO to Tyler Green DO, and understanding confirmed on 05/31/2023 23:39:55 (ET). Electronically Signed: Dereck Rodrigues DO at 23:36 EDT , Discharge Plan Triage Chief Complaint: Abd Pain ED Provider: Tyler Green Dx/Rx/DC Orders Clinical Impression: SBO (small bowel obstruction), Abdominal pain, Nausea Prescriptions: No Action calcium carbonate-vitamin D3 [Calcium 600 with Vitamin D3] 600 mg(1,500mg) -500 unit capsule 2 cap PO DAILY cyanocobalamin (vitamin B-12) 2,500 mcg tablet 2,500 mcg PO DAILY amlodipine [Norvasc] 2.5 mg tablet 5 mg PO DAILY acyclovir 400 mg tablet 400 mg PO BID fluticasone propionate [Flonase Allergy Relief] 50 mcg/actuation spray,suspension 2 spray intranasal DAILY Rx Instructions: administer into each nostril Prolia 60 mg/mL syringe 60 mg subcut [id number] Qty: 1 1RF trazodone 100 MG tablet 100 mg PO QHS melatonin 10 MG tablet 10 mg PO QHS ascorbic acid (vitamin C) 500 MG tablet extended release 1,000 mg PO DAILY omeprazole 40 mg Capsule,Delayed Release(Dr/Ec) 40 mg PO DAILY biotin 5,000 mcg Tablet, Sublingual 5,000 mcg SUBLINGUAL DAILY albuterol sulfate [ProAir HFA] 90 mcg/actuation HFA aerosol inhaler 2 puff INHALATION Q6H PRN (Reason: shortness of breath or wheezing) Qty: 3 3RF budesonide-formoterol [Symbicort] 160-4.5 mcg/actuation HFA aerosol inhaler 2 puff INHALATION BID Qty: 3 3RF Rx Instructions: administer with spacer, rinse mouth after each use montelukast 10 mg tablet 10 mg PO QPM Qty: 90 3RF Primary Care Provider: Rito Camp Referrals: Rito Camp MD [Primary Care Provider] - Disposition Disposition: Acute Care [facility] What to do if you have Problems For any increased pain, shortness of breath, bleeding, nausea or vomiting, chestpain, or any unexpected problems, contact your Primary Care Provider. Call [facility] ([phone]) or report to the closest Emergency Room. Call 911 if necessary. 06/01/23 0041 <Electronically signed by Tyler Faria> Cosigner Signature (if applicable): CC: Dr. Rito Camp MD ~ Signed [facility] Work Phone: [phone]) 864-999709-30-2023 Discharge summary Author Tyler Green [facility] June 01, 2023 12:41am Note Date/Time May 31, 2023 10:05pm [facility] Medical Records Department [address] [place] [address] Emergency Department Summary 05/31/23 MR#: [id number] Acct: [id number] Name: JENA RAMIREZ Rep #:[id number] : [id number] 68 From: Tyler Faria PCP: Dr. Rito Camp MD Status:REG ER Location: ED HPI HPI - GI History of Present Illness Chief Complaint: Abd Pain Informant: patient Narrative Narrative: Patient with waxing and waning lower abdominal pain since 2 PM. Symptoms worsened over the past hour. Nausea due to pain. No vomiting. Had a bowel movement during this that was normal. No abdominal surgeries. No urinary symptoms. States 2 years ago she thinks had similar symptoms ended up with whatshe describes as an NG tube. There is no surgical intervention during the hospitalization. Prior similar symptoms: Yes PFSH PFSH Medical History Alcohol abuse Anxiety associated with depression Arnold-Chiari deformity Asthma Benign essential HTN Cervicalgia Chronic interstitial cystitis Chronic pain disorder Climacteric COPD (chronic obstructive pulmonary disease) COPD, moderate COVID-19 RODRIGUEZ (dyspnea on exertion) Emphysema of lung Esophageal obstruction due to food impaction Former smoker Generalized hyperhidrosis HSV (herpes simplex virus) anogenital infection Hypertension Lumbar spinal stenosis Lung mass Osteoporosis Overactive bladder Partial small bowel obstruction Peripheral neuropathy Postmenopausal atrophic vaginitis Recurrent manic disorder Sleep-related breathing disorder Stage 2 moderate COPD by GOLD classification Uterine fibroid Vitamin D toxicity Home Medications melatonin 10 mg sublingual tablet 10 mg PO QHS sleeping pill 05/20/18 [History Last Taken 03/16/22 21:00] trazodone 100 mg tablet 100 mg PO QHS sleep 05/20/18 [History Last Taken 03/16/22 21:00] ascorbic acid (vitamin C) 500 mg tablet,extended release 1,000 mg PO DAILY supplement 06/26/18 [History Last Taken 03/16/22 09:00] biotin 5,000 mcg sublingual tablet 5,000 mcg sublingual DAILY supplement 02/23/21 [History Last Taken 03/16/22 09:00] omeprazole 40 mg capsule,delayed release 40 mg PO DAILY acid reflux 02/23/21 [History Last Taken 03/16/22 06:00] amlodipine 2.5 mg tablet (Norvasc) 5 mg PO DAILY Blood pressure 04/27/21 [History Last Taken 03/16/22 09:00] calcium carbonate 600 mg-vitamin D3 12.5 mcg (500 unit) capsule (Calcium 600 with Vitamin D3) 2 cap PO DAILY supplement 04/27/21 [History Last Taken 03/16/22 09:00] cyanocobalamin (vitamin B-12) 2,500 mcg tablet 2,500 mcg PO DAILY supplement 04/27/21 [History Last Taken 03/16/22 09:00] acyclovir 400 mg tablet 400 mg PO BID 04/16/22 [History Last Taken Unknown] albuterol sulfate 90 mcg/actuation aerosol inhaler (ProAir HFA) 2 puff inhalation Q6H PRN shortness of breath or wheezing #3 ea 08/29/22 [Rx Last Taken Unknown] budesonide-formoterol HFA 160 mcg-4.5 mcg/actuation aerosol inhaler (Symbicort) 2 puff inhalation BID copd #3 ea 08/29/22 [Rx Last Taken Unknown] montelukast 10 mg tablet 10 mg PO QPM breathing #90 tabs 02/04/23 [Rx Last Taken Unknown] Prolia 60 mg/mL subcutaneous syringe (denosumab) 60 mg subcut [id number] #1 mL 02/25/23 [Rx Last Taken Unknown] fluticasone propionate 50 mcg/actuation nasal spray,suspension (Flonase Allergy Relief) 2 spray intranasal DAILY 04/17/23 [History Last Taken Unknown] Allergy/AdvReac Type Severity Reaction Status Date / Time Fish Containing Products Allergy Severe Angioedema Verified 05/31/23 21:50 shellfish derived Allergy Severe Angioedema Verified 05/31/23 21:50 Horse/Equine Containing Allergy Unknown NEEDS Verified 05/31/23 21:50 Products FOLLOW-UP lisinopril Allergy Unknown Unknown Verified 05/31/23 21:50 Family History Father Hypertension Aortic aneurysm Cancer skin and bladder Mother Brain aneurysm Surgical History H/O eye surgery H/O Spinal surgery History of bilateral tubal ligation S/P craniotomy Social History household members: none Smoking Status: Former smoker quit date: 09/02/10 pack-years: 57 second hand exposure: No alcohol intake: current alcohol intake frequency: 3 or more drinks per day Alcohol type: beer details: Drinks 5-6 beers daily, nearly no breaks in her days of intake. substance use type: does not use caffeine: Yes what type of physical activity do you participate in: none ROS ROS ED Constitutional Constitutional ED: Denies chills, fever(s) or sweats Eyes Eyes: Denies change in vision ENT ENT ED: Denies dysphagia or sore throat Cardiovascular Cardiovascular: Denies chest pain, leg edema, palpitations or racing heartbeat Respiratory/Chest Respiratory/Chest: Denies cough, dyspnea or dyspnea on exertion Gastrointestinal Gastrointestinal: Reports abdominal pain and nausea; Denies diarrhea or vomiting Genitourinary Genitourinary ED: Denies dysuria, hematuria or urinary frequency Musculoskeletal Musculoskeletal: Denies back pain, extremity pain or neck pain Integumentary Denies rash or wounds Neurologic Neurologic: Denies headache(s), paresthesias or weakness EXAM Physical Exam Const Vital Signs: 05/31/23 21:50 06/01/23 00:33 Temperature 97 F L Temperature Source Temporal Pulse Rate 88 91 Respiratory Rate 16 18 Blood Pressure 195/115 H 150/92 H Blood Pressure Mean 141 111 Pulse Ox 97 92 Oxygen Delivery Method Room Air Positive well nourished and well developed Constitutional Narrative: Nontoxic, uncomfortable General Appearance ED: well developed HEENT Reports moist mucous membranes normocephalic and atraumatic Eyes PERRL, EOMs intact bilaterally and conjunctivae normal General Eye ED: Yes normal appearance of both eyes Neck no lymphadenopathy and supple General: Negative for tenderness Chest Wall Chest: Negative for tenderness Resp normal respiratory effort and normal air movement Effort and Inspection: symmetric chest movement; Negative for respiratory distress Cardio regular rate, regular rhythm and no murmurs Peripheral Pulses: pulses 2+ throughout GI normal to inspection, nondistended, normoactive bowel sounds GI Narrative: Tender suprapubic there is no guarding or rebound. Negative Galindo's McBurney'stenderness. No left lower quadrant tenderness. Palpation: Negative for guarding or rebound tenderness present Back/Spine no CVA tenderness and no thoracic nor lumbar tenderness Extremity normal to inspection General Extremety ED: Negative for edema or tenderness General Extremity: Negative for edema Neuro oriented x3 and no sensory deficits noted Sensorium / Orientation: awake and alert Skin no rashes or lesions noted and no wounds MDM MDM MDM Narrative Medical decision making narrative: Interventions / MDM: Differential diagnosis: Bowel obstruction, abdominal pain Diagnosis considered but do not suspect: Appendicitis however negative on CT scan. Diverticulitis however negative on CT scan. My EKG interpretation: N/A Imaging independently reviewed and interpreted by myself: CT abdomen pelvis: Small bowel obstruction, KUB: NG tube in adequate position External documents reviewed: Previous records reviewed March 2022, work-up in theED had concerns for partial small bowel obstruction. Abdominal surgeries was only bilateral tubal ligation. She did have NG tube conservatively manage with improvement. Test considered but not ordered:N/A ED course: Patient lower abdominal pain progressing, reports similar symptoms with bowel obstructions. Laboratory studies drawn, morphine Zofran fluids started. CT scan ordered. Labs White count returned at the 0.8 urinary for infection. Creatinine 0.63. Lactic acid normal at 1. CT scan results interpreted myself and discussed with radiology concerns for small bowel obstruction. Normal appendix. No diverticulitis. Pain was controlled with 1 dose of pain medicines. I discussed with covering surgeon Dr. Collins who also managed her last year with her bowel obstruction, she improved with conservative management. She did recommend NG tube and requests admission to medicine for conservative treatment. NG tube tube was placed by nursing, KUB confirms placement. Patient did receive second dose of pain medicine after NG tube placement. I spoke with hospitalist, Dr. Jordan for admission. Re-evaluation: stable Disposition discussed with patient/family/significant other: Patient Case discussed with consulting clinician: General surgery, hospitalist This note was generated with [employer] dictation software. It may contain incorrectwords, spelling, and punctuation that were not noted in checking the note beforesigning. Lab Data Attestation: I reviewed the patient's lab results. Labs: Laboratory Results - last 24 hr 05/31/23 05/31/23 22:32 22:53 WBC 13.8 H RBC 4.61 Hgb 15.6 H Hct 45.6 MCV 98.9 MCH 33.8 H MCHC 34.2 RDW Std Deviation 44.8 H RDW Coeff of Jordon 12.3 Plt Count 299 MPV 9.4 Immature Gran % (Auto) 0.400 Neut % (Auto) 76.5 H Lymph % (Auto) 13.7 L Barnes % (Auto) 7.4 Eos % (Auto) 1.4 Baso % (Auto) 0.6 Absolute Neuts (auto) 10.6 H Absolute Lymphs (auto) 1.89 Nucleated RBC % 0 Sodium 135 L Potassium 4.1 Chloride 101 Carbon Dioxide 29.0 Anion Gap 5 BUN 12 Creatinine 0.63 Estim Creat Clear Calc 35.96 Est GFR (MDRD) Af Amer 121 Est GFR (MDRD) Non-Af 100 BUN/Creatinine Ratio 19.0 Glucose 101 Lactic Acid 1.0 Calcium 8.9 Urine Color Yellow Urine Clarity Clear Urine pH 7.0 Ur Specific Davenport 1.010 Urine Protein Negative Urine Glucose (UA) Normal Urine Ketones Negative Urine Occult Blood 25 H Urine Nitrite Negative Urine Bilirubin Negative Urine Urobilinogen Normal Ur Leukocyte Esterase Negative Urine RBC 0 SEEN Urine WBC 0 SEEN Ur Squamous Epith Cells 0-5 SEEN Urine Bacteria 0 SEEN Urine Mucus 0 SEEN Radiography Diagnostic Testing: Clinical Impression(s) from Imaging Studies Abdomen/Pelvis CT 05/31/23 22:01 IMPRESSION: 1. Evidence of small bowel obstruction with mesenteric edema and tracking free fluid mostly on the left. A discrete transition point is not visualized. 2. Centrilobular emphysema. 3. Colonic diverticulosis without discrete evidence of acute diverticulitis on this noncontrast examination. Electronically Signed: Dereck Rodrigues DO at 23:36 EDT , ADDENDUM: 05/31/23 2346 IMPRESSION: 1. Evidence of small bowel obstruction with mesenteric edema and tracking free fluid mostly on the left. A discrete transition point is not visualized. 2. Centrilobular emphysema. 3. Colonic diverticulosis without discrete evidence of acute diverticulitis on this noncontrast examination. N.B. : The above Results were Read Back by Dereck Rodrigues DO to Tyler Green DO, and understanding confirmed on 05/31/2023 23:39:55 (ET). Electronically Signed: Dereck Rodrigues DO at 23:36 EDT , Discharge Plan Triage Chief Complaint: Abd Pain ED Provider: Tyler Green Dx/Rx/DC Orders Clinical Impression: SBO (small bowel obstruction), Abdominal pain, Nausea Prescriptions: No Action calcium carbonate-vitamin D3 [Calcium 600 with Vitamin D3] 600 mg(1,500mg) -500 unit capsule 2 cap PO DAILY cyanocobalamin (vitamin B-12) 2,500 mcg tablet 2,500 mcg PO DAILY amlodipine [Norvasc] 2.5 mg tablet 5 mg PO DAILY acyclovir 400 mg tablet 400 mg PO BID fluticasone propionate [Flonase Allergy Relief] 50 mcg/actuation spray,suspension 2 spray intranasal DAILY Rx Instructions: administer into each nostril Prolia 60 mg/mL syringe 60 mg subcut [id number] Qty: 1 1RF trazodone 100 MG tablet 100 mg PO QHS melatonin 10 MG tablet 10 mg PO QHS ascorbic acid (vitamin C) 500 MG tablet extended release 1,000 mg PO DAILY omeprazole 40 mg Capsule,Delayed Release(Dr/Ec) 40 mg PO DAILY biotin 5,000 mcg Tablet, Sublingual 5,000 mcg SUBLINGUAL DAILY albuterol sulfate [ProAir HFA] 90 mcg/actuation HFA aerosol inhaler 2 puff INHALATION Q6H PRN (Reason: shortness of breath or wheezing) Qty: 3 3RF budesonide-formoterol [Symbicort] 160-4.5 mcg/actuation HFA aerosol inhaler 2 puff INHALATION BID Qty: 3 3RF Rx Instructions: administer with spacer, rinse mouth after each use montelukast 10 mg tablet 10 mg PO QPM Qty: 90 3RF Primary Care Provider: Rito Camp Referrals: Rito Camp MD [Primary Care Provider] - Disposition Disposition: Acute Care [facility] What to do if you have Problems For any increased pain, shortness of breath, bleeding, nausea or vomiting, chestpain, or any unexpected problems, contact your Primary Care Provider. Call [facility] ([phone]) or report to the closest Emergency Room. Call 911 if necessary. 06/01/23 0041 <Electronically signed by Tyler Faria> Cosigner Signature (if applicable): CC: Dr. Rito Camp MD ~ Signed [facility] Work Phone: [phone] 282-733309-13-2023 Miscellaneous Notes* Telephone Encounter - Maliha Fregoso RN - 05/15/2023 8:34 AM EDT Patient returns call and provider message reviewed. Patient verbalizes understanding. Maliha Fregoso RN * Telephone Encounter - Kami Salas Ma - 05/14/2023 3:33 PM EDT Message left for pt to call back. Kami Salas Ma * Telephone Encounter - Rito Camp MD - 05/14/2023 3:28 PM EDT Et patient know labs and urine testing orders placed to do 1-2 weeks prior to her visit on 10/01/2023. * Telephone Encounter - Melita Le LPN - 05/14/2023 10:53 AM EDT Pt has medicare Wellness 10/01/23 with you. Pt is wanting to have all labwork checked prior to appointment. (Pt requested this at ov today) Melita Le LPN documented in [facility] encounter[facility]08-[facility]23 Miscellaneous Notes* Telephone Encounter - Melita Le LPN - 04/16/2023 10:45 AM EDT Pt requesting mail away pharm. Last refills sent to local pharm. [facility] 02/20/23 NOV 10/01/23 Melita Le LPN * Telephone Encounter - Hallie Paul - 04/16/2023 9:58 AM EDT Patient has been identified by name and date of : Yes Requested Prescriptions Pending Prescriptions Disp Refills hydrOXYzine HCl (ATARAX) 10 mg tablet 90 tablet 1 Sig: Take 1 tablet by mouth daily at bedtime. RX INSTRUCTIONS: Patient aware RX escripted to mail away pharmacy. No need to notify patient. Hallie Paul documented in this encounterPark[facility]08-09-2023 Miscellaneous Notes* Telephone Encounter - Elana Waller PSS - 04/10/2023 11:49 AM EDT CD/REPORT IS READY FOR CLINICAL NURSE LEADER AT [facility] * Telephone Encounter - Joana Gilliam - 04/10/2023 8:51 AM EDT Patient is requesting Ct Chest from December copied to a disk for picker packer with a copy of the report for picker packer tomorrow. documented in this encounterParkwood [facility]07-06-2023 Miscellaneous Notes* Telephone Encounter - Rito Camp MD - 03/07/2023 5:04 PM EDT The following approved medication requests have been transmitted electronically. Requested Prescriptions Signed Prescriptions Disp Refills traZODone (DESYREL) 150 mg tablet 90 tablet 1 Sig: Take 1 tablet by mouth daily at bedtime. Authorizing Provider: RITO CAMP MD * Telephone Encounter - Jeffrey Pfeiffer Ma - 03/07/2023 2:19 PM EDT [facility]LO[facility]: 02/20/2023 Last refill: 08/29/2022 QTY: 90 Refills: 1 * Telephone Encounter - Liz Reis - 03/07/2023 1:06 PM EDT Diony Ramirez is calling Rito Camp MD today to request a medication that does not appearon current medication list . Trazadone 150 mg takes 1 once daily at bedtime Please send to [facility] for 90 days with refills Patient has been identified by name and birthdate. Duration of symptoms: N/A Person calling: self Call patient at: on cell [phone] (cell) Was an appointment scheduled: No Closing statement: Results or non-symptom based questions: Thank you for calling [facility], your call will be returned within the next business day. Liz Mackenzie [facility] [place] Electronically signed by Liz Mackenzie [facility] [place] at 03/07/2023 1:12 PM EDT documented in this encounterParkwood Hospital06-30-2023 Miscellaneous Notes* Telephone Encounter - CHETAN Holt - 03/01/2023 11:32 AM EDT TC to patient who verbalized understanding of providers message below. Patient has no further questions at this time. CHETAN Holt * Telephone Encounter - Shanita Green PA-C - 03/01/2023 11:10 AM EDT Let patient know that her vit d level was ordered by Dr. Mckee and advise her to contact that officefor instructions. Shanita Green PA-C * Telephone Encounter - Good Silva RN - 03/01/2023 11:01 AM EDT Patient phoned asking for her Vit D lab results and given results: Component Latest Ref Rng & Units 02/26/2023 Vitamin D 25 Hydroxy 31.0 - 80.0 ng/mL 100.0 (H) Patient reports she currently takes Calcium with D3 600 mg/20 mcg, twice daily, sometimes once daily, for years. Asking pcp to please advise patient. documented in this encounterPark[facility]06-29-2023 History of Present illness Narrative* Kerrie Damian RN - 02/28/2023 4:04 PM EDT CDM Telephonic Outreach Provider Action/FYI Pt doing well at home. No new symptoms, no med questions, no refills needed at this time. Pt understands to call PCP with any questions/ concerns in between calls. -Pt currently seeing endo at outside facility (notes available in chart) to address osteoporosis. Pt waiting on insurance to know if Prolia covered. -Pt also states vit d levels high and WBCs high. WBCs now normal, but will have re drawn x1 month. Pt waiting vit d3 results and call from PCP. Contacted for: Routine Telephonic Outreach Contact made with patient: Yes Patient identified by name and date of . Discussed care with patient Are you experiencing any new or worsening symptoms you need to talk about today? No Disease Specific Do you check your blood pressure at home? No Do you have new or worsening shortness of breath with activity? No Do you have new or worsening cough? No Do you have new or worsening wheezing? No Do you need to use your rescue (Albuterol) inhaler or nebulizer more often than normal? No Based on communications clerk, the following disposition is advised: No symptoms or symptoms present, not severe. Routed to: No Action Needed PALOMA Education Provided this Outreach: No Kerrie Damian RN February 28, 2023 4:07 PM documented in this encounterPark[facility]06-29-2023 History of Present illness Narrative* Kerrie Damian RN - 02/28/2023 3:55 PM EDT Opened in error documented in this encounterParkwood Hospital06-28-2023 Miscellaneous Notes* Telephone Encounter - Albania Gill RN - 02/27/2023 12:45 PM EDT Patient notified of results and provider's instructions. Patient verbalizes understanding. Albania Gill RN * Telephone Encounter - Shanita Green PA-C - 02/27/2023 12:18 PM EDT Let patient know that her platelet count has improved. Iron levels are normal. Recheck cbc in 1 month. Shanita Green PA-C documented in this encounterParkwood Hospital06-27-2023 History of Present illness Narrative* Melita Le LPN - 02/26/2023 2:59 PM EDT Scan on 02/25/2023 10:17 AM by External Provider, MU: Consultation - Endocrinology documented in this encounterParkwood Hospital06-27-2023 Miscellaneous Notes* Telephone Encounter - Mila Kidd Cma - 02/26/2023 1:58 PM EDT Patient notified and verbalized understanding Mila Kidd Cma * Telephone Encounter - Alex Brown APRN.LUIS FELIPE - 02/26/2023 12:54 PM EDT Please let patient know her CT is normal. documented in this encounterParkwood Hospital06-27-2023 History of Present illness Narrative* Charleen Linda, RT(R) - 02/26/2023 9:20 AM EDT Radiology Service Progress Note DATE OF SERVICE: February 26, 2023 TIME: 12:35 PM PATIENT IDENTITY VERIFICATION COMPLETED USING TWO (2) STANDARD IDENTIFIERS: Name and Date of confirmed by patient verbally. FALL SCREENING: Has the patient had 2 falls in the last year or 1 fall with injury or currently using an Ambulatory Assistive Device (Walker, Cane, Wheelchair, Crutches, etc.)? No PATIENT GENDER DATA: Female. status: : No status: NO. PATIENT RELEVANT IMPLANT DATA REVIEWED: Yes ALLERGIES: Reviewed and unchanged CONTRAST ALLERGY: NO. EXAM: CT -CONTRAST INDUCED NEPHROPATHY RISK FACTORS: Patient age > 60 years CREATININE: Creatinine Date Value Ref Range Status 02/20/2023 0.60 0.58 - 0.96 mg/dL Final 01/21/2023 0.68 0.58 - 0.96 mg/dL Final 09/15/2022 0.69 0.58 - 0.96 mg/dL Final Estimated Glomerular Filtration Rate Date Value Ref Range Status 02/20/2023 99 >=60 mL/min/1.73m Final Comment: Estimated Glomerular Filtration Rate (eGFR) is calculated using the 2020 CKD-EPI creatinine equation. This equation utilizes serum creatinine, sex, and age as parameters. The creatinine assay has traceable calibration to isotope dilution- mass spectrometry. Refer to KDIGO guidelines for clinical interpretation. In patients with unstable renal function, e.g. those with acute kidney injury, the eGFRmay not accurately reflect actual GFR. eGFR- Date Value Ref Range Status 09/21/2021 >60 Final P.O.C.T. RESULTS: POC done: Yes, See Lab Tab February 26, 2023 TREATMENT: N/A PERIPHERAL IV DATA: Ambulatory: A peripheral IV was started in the Left antecubital site with a Angio cath: 18 gauge. RADIOLOGY DEPARTMENT: CT; Exam(s) Completed: CTA Brain SIGNATURE: RT Mayo(R) PATIENT NAME: Diony Ramirez DATE: February 26, 2023 TIME: 12:35 PM documented in this encounterParkwood Hospital06-22-2023 Miscellaneous Notes* Telephone Encounter - Maliha Fregoso RN - 02/21/2023 8:48 AM EDT Patient calls and notified of results and providers instructions. Patient verbalizes understanding.Patient will come in to have labs drawn in one week. Lab appointment not scheduled at this time. Maliha Fregoso RN * Telephone Encounter - Shanita Green PA-C - 02/21/2023 8:03 AM EDT Let patient know that overall labs are okay. However her platelet count is high. This is somewhat of a nonspecific finding and doesn't really help me figure out what may be going on. What I would like to do is get a repeat CBC in 1 week to trend. Will also check iron levels, as iron deficiency can sometimes be a cause for elevated platelet counts. Shanita Green PA-C documented in this encounterParkwood Hospital06-21-2023 Instructions* Patient Instructions* Shanita Green PA-C - 02/20/2023 8:42 AM EDT Taper off of the trazodone to see how you do with hydroxyzine on it's own for sleep. Take 1/2 tablet of trazodone x 1 week and then stop. documented in this encounterPark[facility] Hospital06-21-2023 History of Present illness Narrative* Shanita Green PA-C - 02/20/2023 8:29 AM EDT Chief Complaint Patient presents with: Recheck: Blood pressure HPI Diony Ramirez is a 67 year old female who presents here today for multiple concerns. Patient reports headaches for the past week. Was having sinus issues too but those improved. [place] like BP at home as been elevated but usually checks it as she is on the go. Doesn't sit and relax prior to checking. She has been taking excedrin daily. Past medical history, appointments, medications, allergies reviewed. Previous Medical History PAST MEDICAL HISTORY Diagnosis Date Abnormal toxicological findings 02/01/2021 Tox screen 01/27/2021 showed no benzos and pos for oxycodone which patient was not on. Patient informed of no further controlled med refills. 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 Chronic anxiety 06/17/2018 Degenerative arthritis of lumbar spine 05/06/2014 Ectatic thoracic aorta (HCC) 12/04/2022 CT done 12/2022 Elevated blood sugar 01/27/2021 Emphysema of lung ([facility]) 03/18/2015 Essential hypertension, benign 02/21/2015 Ex-smoker 01/27/2021 Started around 89 and quit 2004. Smoked about 1.5 PPD GERD without esophagitis 09/12/2022 Herpes 01/27/2021 History of 2019 novel coronavirus disease (COVID-19) 01/27/202106/2020 HSV (herpes simplex virus) anogenital infection 02/08/2016 Living will on file at physician's office 09/27/2022 DPA: Reina Dneise (aunt) Lung mass 09/07/2011 Lung nodules 05/30/[address] Suleman Gustafson Medicare annual wellness visit, subsequent 01/27/2021 Medicare Part B: NA Last done: Multiple thyroid nodules 01/27/[address] Vigil and f/u was stable. Told no need for further f/u. 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 Takes mid morning. Substance agreement signed and Tox screen done 12/2020. 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 COLONOSCOPY FLX DX W/COLLJ SPEC WHEN PFRMD 08/19/2006 Repeat in COLONOSCOPY FLX DX W/COLLJ SPEC WHEN PFRMD 06/27/2016 Colonoscopy CRANIOPLASTY SKULL DEF/REPAIR/ BRAIN 09/14/2014 See scanned documents - status post ESOPHAGOGASTRODUODENOSCOPY TRANSORAL DIAGNOSTIC 06/27/2016 EGD ESOPHAGOGASTRODUODENOSCOPY TRANSORAL DIAGNOSTIC 06/30/2018 EGD I&D ABSCESS CMPLX/MULT 07/2013 Epidural abscess- MSSA LIG/TRNSXJ FLP TUBE ABDL/VAG APPR UNI/BI Tubal ligation PAST SURGICAL HISTORY OF spinal surgery PAST SURGICAL HISTORY OF retinal detachment OD, (2 tears) PAST SURGICAL HISTORY OF 2012 back surgery STRESS TEST NUCLEAR 05/23/2021 negative Family History FAMILY HISTORY Problem Relation Age of Onset Hypertension Mother other (cerebral aneurysm) Mother Colon Polyps Father Hypertension Father COPD Father Cancer Father Bladder Cancer other (Past medical history) Father abdominal aneurysm/bladder cancer other (aortic aneurysm) Father Aneurysm Paternal Grandfather Patient Allergies ALLERGIES Allergen Reactions Fish Unknown Horse Serum [Other] Unknown Lisinopril Cough Seafood [Other] Unknown Current Medications Current Outpatient Medications on File Prior to Visit Medication Sig cetirizine (ZYRTEC) 10 mg tablet Take 1 tablet by mouth once daily. fluticasone (FLONASE) 50 mcg/actuation nasal spray Use 2 Sprays in each nostril once daily. Rinse mouth after use. amLODIPine (NORVASC) 2.5 mg tablet Take 1 tablet by mouth once daily. omeprazole (PRILOSEC) 40 mg capsule Take 1 capsule by mouth once daily. traZODone (DESYREL) 150 mg tablet Take 1 tablet by mouth daily at bedtime. acyclovir (ZOVIRAX) 400 mg tablet Take 1 tablet by mouth twice daily. ZINC ORAL Take by mouth as directed. SYMBICORT 160-4.5 mcg/actuation inhaler SPIRIVA RESPIMAT 2.5 mcg/actuation inhaler BIOTIN ORAL Take 5,000 mcg by mouth. ascorbic acid/collagen hydr (COLLAGEN PLUS VITAMIN C ORAL) Take 1,000 mg by mouth twice daily. albuterol HFA (PROAIR HFA) 90 mcg/actuation inhaler Inhale 2 Puffs as instructed every 4 hours as needed for Wheezing/Shortness of Breath. Melatonin 5 mg cap 5 mg by mouth taken 2 hours prior to bedtime (Patient taking differently: 10 mg.5 mg by mouth taken 2 hours prior to bedtime) Ascorbic Acid (VITAMIN C) 1,000 mg TbER Take by mouth. Calcium Carb-Cholecalciferol (CALCIUM 600 WITH VITAMIN D3) 600-200 mg-unit ORAL Tab Take one(1) tablet two(2) times daily. hydrOXYzine HCl (ATARAX) 10 mg tablet Take 1 tablet by mouth daily at bedtime. No current facility-administered medications on file prior to visit. Social History Social History Tobacco Use Smoking status: Former Packs/day: 1.50 Years: 15.00 Pack years: 22.50 Types: Cigarettes Quit date: 07/31/2005 Years since quittin.5 Smokeless tobacco: Never Vaping Use Vaping Use: Never used Substance Use Topics Alcohol use: Yes Alcohol/week: 25.0 - 37.5 standard drinks Types: 10 - 15 Cans of Beer (12oz) per week Comment: 5-8 beers daily Drug use: No Review of Symptoms REVIEW OF SYSTEMS See hpi EXAM: BP 130/90 (BP Site: Right Arm, BP Position: Sitting, BP Cuff Size: Regular Adult) Pulse 63 Temp36.7 C (98.1 F) Resp 16 LMP 03/23/2007 BP 130/83 (BP Site: Left Arm, BP Position: Sitting, BP Cuff Size: Regular Adult) Pulse 85 Temp 36.7 C (98.1 F) Resp 16 LMP 03/23/2007 General Appearance: Well appearing, alert, in no acute distress, well-hydrated, well nourished.. Health Maintenance List MAMMOGRAM due on 07/31/2023 BP CONTROLLED (<130/80) due on 11/20/2023 ANNUAL PCP TEAM CHRONIC DISEASE VISIT due on 02/16/2024 DIABETES SCREEN due on 09/15/2025 COLORECTAL CANCER SCREENING due on 06/27/2026 LIPID SCREEN due on 09/15/2027 DTAP,TDAP,TD(3 - Td or Tdap) due on 12/18/2028 BONE DENSITY Completed INFLUENZA Completed ADVANCE DIRECTIVE DISCUSSION Completed DEPRESSION ASSESSMENT Completed HEPATITIS C SCREENING Completed SHINGRIX VACCINE Completed PNEUMOCOCCAL: 65+ Completed ALPHA-1 ANTITRYPSIN DEFICIENCY SCREENING Discontinued SPIROMETRY Discontinued COVID-19 VACCINE Discontinued Data reviewed ASSESSMENT/PLAN: 1. Psychophysiological insomnia - ICD9: 307.42, ICD10: F51.04 (primary diagnosis) Can taper off of the trazodone since it has not been beneficial. Then can try just the hydroxyzine at bed time. - TSH BLD - CBC + DIFF 2. New onset of headaches after age 50 - ICD9: 784.0, ICD10: R51.[address] Continue with current plan. CT scheduled next week Advised to take flonase daily for 2 weeks. Decrease use of excedrin. - TSH BLD - CBC + DIFF 3. Essential hypertension, benign - ICD9: 401.1, ICD10: I10 - Controlled - Continue current medications - Recommend home blood pressure monitoring, to bring results to next visit - Encouraged sodium restriction, DASH or Mediterranean diet - Recommend regular aerobic exercise - BASIC METABOLIC PNL - CBC + DIFF 4. Ex-smoker - ICD9: V15.82, ICD10: Z87.891 Will follow up based on labs and imaging results Shanita Green PA-C documented in this encounterPark[facility]06-16-[facility]23 Instructions* Patient Instructions* Alex Brown APRN.CNP - 02/15/2023 9:53 AM EDT Start hydroxyzine, cetirizine, fluticasone Schedule with allergy documented in this encounterParkwood [facility]06-16-[facility]23 History of Present illness Narrative* Alex Brown APRN.CNP - 02/15/2023 9:37 AM EDT Chief Complaint Patient presents with: Multiple Concerns: Headache-persistent with high BP at home; Sleep-difficulty to fall asleep/stay asleep; runny nose HPI Diony Ramirez is a 67 year old female who presents here today for Above Complaints.. Patient presents for multiple complaints. Patient reports runny nose x2 months. Patient also reports headache at home with high BP however. Patient reports the past couple of weeks she has had headaches. Patient reports excedrin extra strength which has been effective. Patient also reports she has been having more problems sleeping than normal. Patient is taking trazodone nightly but didn't start hydroxyzine due to possible side effects. Patient reports she fell on and hit her head when she got up in the middle of the night. Past medical history, appointments, medications, allergies reviewed. Previous Medical History PAST MEDICAL HISTORY Diagnosis Date Abnormal toxicological findings 02/01/2021 Tox screen 01/27/2021 showed no benzos and pos for oxycodone which patient was not on. Patient informed of no further controlled med refills. 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 Chronic anxiety 06/17/2018 Degenerative arthritis of lumbar spine 05/06/2014 Ectatic thoracic aorta (HCC) 12/04/2022 CT done 12/2022 Elevated blood sugar 01/27/2021 Emphysema of lung (HCC) 03/18/2015 Essential hypertension, benign 02/21/2015 Ex-smoker 01/27/2021 Started around 89 and quit 2004. Smoked about 1.5 PPD GERD without esophagitis 09/12/2022 Herpes 01/27/2021 History of 2019 novel coronavirus disease (COVID-19) 01/27/202106/2020 HSV (herpes simplex virus) anogenital infection 02/08/2016 Living will on file at physician's office 09/27/2022 DPA: Reina Denise (aunt) Lung mass 09/07/2011 Lung nodules 05/30/[address] Suleman Gustafson Medicare annual wellness visit, subsequent 01/27/2021 Medicare Part B: NA Last done: Multiple thyroid nodules 01/27/[address] Vigil and f/u was stable. Told no need for further f/u. 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 Takes mid morning. Substance agreement signed and Tox screen done 12/2020. 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 COLONOSCOPY FLX DX W/COLLJ SPEC WHEN PFRMD 08/19/2006 Repeat in COLONOSCOPY FLX DX W/COLLJ SPEC WHEN PFRMD 06/27/2016 Colonoscopy CRANIOPLASTY SKULL DEF/REPAIR/ BRAIN 09/14/2014 See scanned documents - status post ESOPHAGOGASTRODUODENOSCOPY TRANSORAL DIAGNOSTIC 06/27/2016 EGD ESOPHAGOGASTRODUODENOSCOPY TRANSORAL DIAGNOSTIC 06/30/2018 EGD I&D ABSCESS CMPLX/MULT 07/2013 Epidural abscess- MSSA LIG/TRNSXJ FLP TUBE ABDL/VAG APPR UNI/BI Tubal ligation PAST SURGICAL HISTORY OF spinal surgery PAST SURGICAL HISTORY OF 2/ retinal detachment OD, (2 tears) PAST SURGICAL HISTORY OF 2012 back surgery STRESS TEST NUCLEAR 05/23/2021 negative Family History FAMILY HISTORY Problem Relation Age of Onset Hypertension Mother other (cerebral aneurysm) Mother Colon Polyps Father Hypertension Father COPD Father Cancer Father Bladder Cancer other (Past medical history) Father abdominal aneurysm/bladder cancer other (aortic aneurysm) Father Aneurysm Paternal Grandfather Patient Allergies ALLERGIES Allergen Reactions Fish Unknown Horse Serum [Other] Unknown Lisinopril Cough Seafood [Other] Unknown Current Medications Current Outpatient Medications on File Prior to Visit Medication Sig amLODIPine (NORVASC) 2.5 mg tablet Take 1 tablet by mouth once daily. omeprazole (PRILOSEC) 40 mg capsule Take 1 capsule by mouth once daily. hydrOXYzine HCl (ATARAX) 10 mg tablet Take 1 tablet by mouth daily at bedtime. traZODone (DESYREL) 150 mg tablet Take 1 tablet by mouth daily at bedtime. acyclovir (ZOVIRAX) 400 mg tablet Take 1 tablet by mouth twice daily. ZINC ORAL Take by mouth as directed. SYMBICORT 160-4.5 mcg/actuation inhaler SPIRIVA RESPIMAT 2.5 mcg/actuation inhaler BIOTIN ORAL Take 5,000 mcg by mouth. ascorbic acid/collagen hydr (COLLAGEN PLUS VITAMIN C ORAL) Take 1,000 mg by mouth twice daily. albuterol HFA (PROAIR HFA) 90 mcg/actuation inhaler Inhale 2 Puffs as instructed every 4 hours as needed for Wheezing/Shortness of Breath. Melatonin 5 mg cap 5 mg by mouth taken 2 hours prior to bedtime (Patient taking differently: 10 mg.5 mg by mouth taken 2 hours prior to bedtime) Ascorbic Acid (VITAMIN C) 1,000 mg TbER Take by mouth. Calcium Carb-Cholecalciferol (CALCIUM 600 WITH VITAMIN D3) 600-200 mg-unit ORAL Tab Take one(1) tablet two(2) times daily. No current facility-administered medications on file prior to visit. Social History Social History Tobacco Use Smoking status: Former Packs/day: 1.50 Years: 15.00 Pack years: 22.50 Types: Cigarettes Quit date: 07/31/2005 Years since quittin.5 Smokeless tobacco: Never Vaping Use Vaping Use: Never used Substance Use Topics Alcohol use: Yes Alcohol/week: 25.0 - 37.5 standard drinks Types: 10 - 15 Cans of Beer (12oz) per week Comment: 5-8 beers daily Drug use: No Review of Symptoms REVIEW OF SYSTEMS SEE HPI EXAM: BP 128/82 Pulse 98 Temp 37.1 C (98.8 F) (Right Tympanic) Resp 20 Wt 40.5 kg (89 lb 3.2 oz) LMP 03/23/2007 SpO2 97% BMI 19.30 kg/m General Appearance: Well appearing, alert, in no acute distress, well-hydrated, well nourished.. Lungs: Lungs clear to auscultation. No wheezing, rhonchi, rales.. Heart: RRR without murmur, gallop, or rubs. No ectopy. Peripheral Pulses: Normal. Health Maintenance List MAMMOGRAM due on 07/31/2023 ANNUAL PCP TEAM CHRONIC DISEASE VISIT due on 11/20/2023 BP CONTROLLED (<130/80) due on 12/19/2023 DIABETES SCREEN due on 09/15/2025 COLORECTAL CANCER SCREENING due on 06/27/2026 LIPID SCREEN due on 09/15/2027 DTAP,TDAP,TD(3 - Td or Tdap) due on 12/18/2028 BONE DENSITY Completed INFLUENZA Completed ADVANCE DIRECTIVE DISCUSSION Completed DEPRESSION ASSESSMENT Completed HEPATITIS C SCREENING Completed SHINGRIX VACCINE Completed PNEUMOCOCCAL: 65+ Completed ALPHA-1 ANTITRYPSIN DEFICIENCY SCREENING Discontinued SPIROMETRY Discontinued COVID-19 VACCINE Discontinued ASSESSMENT/PLAN: 1. Psychophysiological insomnia - ICD9: 307.42, ICD10: F51.04 (primary diagnosis) - HYDROXYZINE HCL 10 MG TABLET 2. Runny nose - ICD9: 784.99, ICD10: R09.89 - CONSULT TO ALLERGY/IMMUNOLOGY - CETIRIZINE 10 MG TABLET - FLUTICASONE PROPIONATE 50 MCG/ACTUATION NASAL SPRAY,SUSPENSION 3. New onset of headaches after age 50 - ICD9: 784.0, ICD10: R51.9 - CTA HEAD W IVCON - IV CONTRAST (RADIOLOGY PROCEDURE) Alex Brown APRN.SENIOR INFORMATICA DEVELOPER documented in this encounterParkwood Hospital05-08-2023 History of Present illness Narrative* Ruth Denton RN - 01/07/2023 1:21 PM EDT CD Telephonic Outreach Provider Action/FYI Made call #2. NA/Left vm. Left H@H reminder. Contacted for: Routine Telephonic Outreach Contact made with patient: No, left message. Ruth Denton RN January 07, 2023 1:23 PM * Ruth Denton RN - 01/03/2023 1:19 PM EDT [facility] Telephonic Outreach Provider Action/FYI Made call #1. NA/left vm. Contacted for: Routine Telephonic Outreach Contact made with patient: No, left message. Ruth Denton RN January 07, 2023 1:21 PM documented in this encounterParkwood Hospital05-01-2023 Miscellaneous Notes* Telephone Encounter - Elizabeth Eckert LPN - 12/31/2022 4:24 PM EDT Pt notified of the following message: Per PreAccess: PreAccess Elizabeth Eckert Afternoon, CT CHEST ABDOMEN PELVIS - no precert required referral updated . Thank you, Xin Eckert LPN * Telephone Encounter - Elizabeth Eckert LPN - 12/31/2022 12:29 PM EDT Pt calls to report that her insurance is stating they do not have any information concerning CT of Chest. Referral has been placed. Email sent to Pre[facility] to review. Elizabeth Eckert LPN documented in this encounterParkwood Hospital04-18-2023 History of Present illness Narrative* Kandice Ryan RT(R) - 12/18/2022 9:30 AM EDT Radiology Service Progress Note PATIENT NAME: Diony Ramirez DATE OF SERVICE: December 18, 2022 TIME: 9:49 AM PATIENT IDENTITY VERIFICATION COMPLETED USING TWO (2) IDENTIFIERS: Name and Date of confirmedby patient verbally. FALL SCREENING: Has the patient had 2 falls in the last year or 1 fall with injury or currently using an Ambulatory Assistive Device (Walker, Cane, Wheelchair, Crutches, etc.)? No PATIENT GENDER DATA: Female. status: : No status: NO. PATIENT RELEVANT IMPLANT DATA REVIEWED: Not Applicable RADIOLOGY DEPARTMENT: General X-ray: Exam(s) Completed: Upper Extremity X- Ray(s): Wrist, right PERIPHERAL IV DATA: Not applicable SIGNED BY: RT Liz(R) December 18, 2022 9:49 AM documented in this encounterParkwood Hospital04-07-2023 History of Present illness Narrative* Ruth Denton RN - 12/07/2022 4:02 PM EDT INSIGHT CDM TELEPHONIC OUTREACH Provider Action/FYI: Pt denies new or worsening CDM symptoms. Denies needs, questions, concerns at this time. END OUTREACH Contact made with patient: Yes Patient identified by name and . Discussed care with patient It s nice talking to you again. As a reminder, this is our bi-weekly check-in where I will be asking you questions about your health. This will only take a few minutes of your time. Is this a good time? Yes Symptoms What Chronic Disease(s) does the patient have: COPD Do you check your blood pressures at home? No Do you have new or worse shortness of breath with activity? No Do you have new or worsening cough? No Do you have new or worsening wheezing? No Do you need to use your rescue (Albuterol) inhaler or nebulizer more often than normal? No Are you having any other symptoms that your PCP needs to know about? No Symptoms: Symptom Escalation PALOAM Education Ordered -: No The patient required an escalation for symptom(s)? No Medications Do you have any questions about taking your medication or which medications you should be on? No Do you need any medication refills at this time, including any of the medications you might take only when needed? No Social We would like to make sure you have what you need so that your basic needs are met- including your personal safety, food, housing, transportation and medications? Would you like to speak with a social work medical director/head team physician to help give you support for any of these needs? No It can be normal to feel anxious or down during a time like this. Would you like to talk to a mental health professional about how you have been feeling? No Closing Thank you for taking the time to talk with me today. We want to work with you to ensure that we arekeeping your medical condition(s) well-controlled and to keep you healthy and out of the doctor's office or hospital. It s also not too late for me to sign you up for automated weekly questionnaires through [employer]. This is an easy way for us to stay connected each week. Are you interested? No, I understand. We can always sign you up in the future if you change your mind. Just as a reminder, will continue to call you every other week to check in on your health. Our calls should take 10-15 minutes or less. Remember, if you have concerns in between our calls, please call your PCP's office right away. Thank you. Enter next patient outreach date for two weeks on the same day of the week as today in the Track PtOutreach and End outreach. documented in this encounterParkwood Hospital04-05-2023 Miscellaneous Notes* Telephone Encounter - Marli Zhang RN - 12/05/2022 3:54 PM EDT Pt called and is notified of providers message and instructions. Pt voices understanding. Pt put through to scheduling to set up CT. Marli Zhang RN * Telephone Encounter - Rito Camp MD - 12/05/2022 3:46 PM EDT Advise patient without the CT I can not completely rule out cancer as a source for her weight loss. * Telephone Encounter - Joana Au RN - 12/05/2022 10:12 AM EDT Patient returned call and given provider's message below. Patient informed that her pancreas was not visualized in recent US and a CT is recommended. Patientasking provider if he feels it is necessary to get a CT if everything else looked good on US? Patient reports she has to pay a co-pay for these tests. Please advise patient. Thank you. * Telephone Encounter - Marli Zhang RN - 12/05/2022 9:59 AM EDT Called and left a voicemail for the Patient to call back and ask for a nurse to receive the providers message. Marli Zhang RN * Telephone Encounter - Rito Camp MD - 12/04/2022 9:29 PM EDT Let patient know CT of chest showed no new nodules or changes in any of her previously known nodules. The is slight dilation of the aorta in the chest and this will need monitored yearly. US of abdomen was ok but pancrease was not fully visualized. I have placed an order to get a CT of her abd/pelvis. documented in this encounterParkwood Hospital04-05-2023 Miscellaneous Notes* Telephone Encounter - Angella Santiago Pss - 12/05/2022 11:35 AM EDT Diony is asking for 90 day scripts with 3 refills. Pended meds have been changed to reflect that request. Please review and send as appropriate. * Telephone Encounter - Angella Santiago Pss - 12/05/2022 11:34 AM EDT Pharmacy verified in [facility] Patient has been identified by name and date of : Yes Patient aware RX will be sent to pharmacy. No need to notify patient. Patient phones for refill(s): Requested Prescriptions Pending Prescriptions Disp Refills amLODIPine (NORVASC) 2.5 mg tablet 90 tablet 3 Sig: Take 1 tablet by mouth once daily. omeprazole (PRILOSEC) 40 mg capsule 90 capsule 3 Sig: Take 1 capsule by mouth once daily. Date of last office visit : 11/19/2022 Date of next office visit : Visit date not found Last 2 Encounter Wt Readings: Date: Wt: 11/19/2022 40.4 kg (89 lb) 09/27/2022 42.2 kg (93 lb) Please advise. Angella Santiago Pss documented in this encounterParkwood Hospital04-03-2023 History of Present illness Narrative* Mary Ann Perez RDMS - 12/03/2022 9:15 AM EDT Radiology Service Progress Note PATIENT NAME: Diony Ramirez DATE OF SERVICE: December 03, 2022 TIME: 9:40 AM PATIENT IDENTITY VERIFICATION COMPLETED USING TWO (2) IDENTIFIERS: Name and Date of confirmedby patient verbally. FALL SCREENING: Has the patient had 2 falls in the last year or 1 fall with injury or currently using an Ambulatory Assistive Device (Walker, Cane, Wheelchair, Crutches, etc.)? No PATIENT GENDER DATA: Female. status: : No status: NO. PATIENT RELEVANT IMPLANT DATA REVIEWED: Not Applicable RADIOLOGY DEPARTMENT: Ultrasound PERIPHERAL IV DATA: Not applicable SIGNED BY: Mary Ann Perez RDMS RVT December 03, 2022 9:40 AM documented in this encounterParkwood Hospital04-03-2023 History of Present illness Narrative* Charleen Linda RT(Renata) - 12/03/2022 8:00 AM EDT Radiology Service Progress Note PATIENT NAME: Diony Ramirez DATE OF SERVICE: December 03, 2022 TIME: 3:29 PM PATIENT IDENTITY VERIFICATION COMPLETED USING TWO (2) IDENTIFIERS: Name and Date of confirmedby patient verbally. FALL SCREENING: Has the patient had 2 falls in the last year or 1 fall with injury or currently using an Ambulatory Assistive Device (Walker, Cane, Wheelchair, Crutches, etc.)? No PATIENT GENDER DATA: Female. status: : No status: NO. PATIENT RELEVANT IMPLANT DATA REVIEWED: Yes RADIOLOGY DEPARTMENT: CT; Exam(s) Completed: Chest PERIPHERAL IV DATA: Not applicable SIGNED BY: RT Mayo(R) December 03, 2022 3:29 PM documented in this encounterParkwood Hospital03-21-2023 Miscellaneous Notes* Telephone Encounter - Mitzy Jacobson LPN - 11/20/2022 3:15 PM EDT Pt notified of results. Mitzy Jacobson LPN * Telephone Encounter - Shanita Green PA-C - 11/20/2022 2:43 PM EDT Thyroid levels are normal. Shanita Green PA-C documented in this encounterParkwood Hospital03-20-2023 Instructions* Patient Instructions* Rito Camp MD - 11/19/2022 10:38 AM EDT Please go to [facility] and ask for a copy of your Chest CT done May 2022 placed onto a disc. When you come into [facility] for your chest CT bring the disc with you and give to radiology so it can be up loaded into the system. documented in this encounterParkwood Hospital03-20-2023 History of Present illness Narrative* Rito Camp MD - 11/19/2022 9:58 AM EDT Chief Complaint Patient presents with: Weight Loss HPI Diony Ramirez is a 67 year old female who presents here today for weight loss. Has no change in appetite. Patient has not been trying to lose weight but has been noting continued weight loss over the past 6-12 months. Has gained a few lbs back. Feels her skin is more wrinkly. Past medical history, appointments, medications, allergies reviewed. Previous Medical History PAST MEDICAL HISTORY Diagnosis Date Abnormal toxicological findings 02/01/2021 Tox screen 01/27/2021 showed no benzos and pos for oxycodone which patient was not on. Patient informed of no further controlled med refills. 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 Chronic anxiety 06/17/2018 Degenerative arthritis of lumbar spine 05/06/2014 Elevated blood sugar 01/27/2021 Emphysema of lung (HCC) 03/18/2015 Essential hypertension, benign 02/21/2015 Ex-smoker 01/27/2021 Started around 89 and quit 2004. Smoked about 1.5 PPD GERD without esophagitis 09/12/2022 Herpes 01/27/2021 History of 2019 novel coronavirus disease (COVID-19) 01/27/202106/2020 HSV (herpes simplex virus) anogenital infection 02/08/2016 Living will on file at physician's office 09/27/2022 DPA: Reina Denise (aunt) Lung mass 09/07/2011 Lung nodules 05/30/[address] Suleman Gustafson Medicare annual wellness visit, subsequent 01/27/2021 Medicare Part B: NA Last done: Multiple thyroid nodules 01/27/[address] Vigil and f/u was stable. Told no need for further f/u. 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 Takes mid morning. Substance agreement signed and Tox screen done 12/2020. 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 COLONOSCOPY FLX DX W/COLLJ SPEC WHEN PFRMD 08/19/2006 Repeat in COLONOSCOPY FLX DX W/COLLJ SPEC WHEN PFRMD 06/27/2016 Colonoscopy CRANIOPLASTY SKULL DEF/REPAIR/ BRAIN 09/14/2014 See scanned documents - status post ESOPHAGOGASTRODUODENOSCOPY TRANSORAL DIAGNOSTIC 06/27/2016 EGD ESOPHAGOGASTRODUODENOSCOPY TRANSORAL DIAGNOSTIC 06/30/2018 EGD I&D ABSCESS CMPLX/MULT 07/2013 Epidural abscess- MSSA LIG/TRNSXJ FLP TUBE ABDL/VAG APPR UNI/BI Tubal ligation PAST SURGICAL HISTORY OF spinal surgery PAST SURGICAL HISTORY OF retinal detachment OD, (2 tears) PAST SURGICAL HISTORY OF 2012 back surgery STRESS TEST NUCLEAR 05/23/2021 negative Family History FAMILY HISTORY Problem Relation Age of Onset Hypertension Mother other (cerebral aneurysm) Mother Colon Polyps Father Hypertension Father COPD Father Cancer Father Bladder Cancer other (Past medical history) Father abdominal aneurysm/bladder cancer other (aortic aneurysm) Father Aneurysm Paternal Grandfather Patient Allergies ALLERGIES Allergen Reactions Fish Unknown Horse Serum [Other] Unknown Lisinopril Cough Seafood [Other] Unknown Current Medications Current Outpatient Medications on File Prior to Visit Medication Sig hydrOXYzine HCl (ATARAX) 10 mg tablet Take 1 tablet by mouth daily at bedtime. amLODIPine (NORVASC) 2.5 mg tablet Take 1 tablet by mouth once daily. traZODone (DESYREL) 150 mg tablet Take 1 tablet by mouth daily at bedtime. acyclovir (ZOVIRAX) 400 mg tablet Take 1 tablet by mouth twice daily. omeprazole (PRILOSEC) 40 mg capsule Take 1 capsule by mouth once daily. ZINC ORAL Take by mouth as directed. SYMBICORT 160-4.5 mcg/actuation inhaler SPIRIVA RESPIMAT 2.5 mcg/actuation inhaler BIOTIN ORAL Take 5,000 mcg by mouth. ascorbic acid/collagen hydr (COLLAGEN PLUS VITAMIN C ORAL) Take 1,000 mg by mouth twice daily. albuterol HFA (PROAIR HFA) 90 mcg/actuation inhaler Inhale 2 Puffs as instructed every 4 hours as needed for Wheezing/Shortness of Breath. Melatonin 5 mg cap 5 mg by mouth taken 2 hours prior to bedtime (Patient taking differently: 10 mg.5 mg by mouth taken 2 hours prior to bedtime) Ascorbic Acid (VITAMIN C) 1,000 mg TbER Take by mouth. Calcium Carb-Cholecalciferol (CALCIUM 600 WITH VITAMIN D3) 600-200 mg-unit ORAL Tab Take one(1) tablet two(2) times daily. No current facility-administered medications on file prior to visit. Social History Social History Tobacco Use Smoking status: Former Packs/day: 1.50 Years: 15.00 Pack years: 22.50 Types: Cigarettes Quit date: 07/31/2005 Years since quittin.3 Smokeless tobacco: Never Vaping Use Vaping Use: Never used Substance Use Topics Alcohol use: Yes Alcohol/week: 25.0 - 37.5 standard drinks Types: 10 - 15 Cans of Beer (12oz) per week Comment: 5-8 beers daily Drug use: No Review of Symptoms REVIEW OF SYSTEMS GENERAL: Negative for malaise, fever, night sweats. Positive for weight loss. Approximately 10 lbs in last 6-12 months but also thin to start. NECK: Negative for lumps, goiter, pain and significant neck swelling RESPIRATORY: Negative for hemoptysis, wheezing, COPD, dyspnea or shortness of breath. When she was in [place] she had a cough that has bene non-productive. Cough has improved but not resolved. CARDIOVASCULAR: Negative for chest pain, leg swelling, hypertension, CHF or palpitations SKIN: See HPI Abd: no nausea, vomiting, diarrhea or blood. EXAM: BP 122/82 (BP Site: Left Arm, BP Position: Sitting, BP Cuff Size: Regular Adult) Pulse 76 Resp 18 Wt 40.4 kg (89 lb) LMP 03/23/2007 BMI 19.26 kg/m Last 15 Encounter Wt Readings: Date: Wt: 11/19/2022 40.4 kg (89 lb) 09/27/2022 42.2 kg (93 lb) 07/31/2022 42.6 kg (94 lb) 07/04/2022 42.3 kg (93 lb 3.2 oz) 05/28/2022 41.7 kg (92 lb) 04/30/2022 42.6 kg (94 lb) 04/06/2022 42.5 kg (93 lb 12.8 oz) 03/23/2022 42.6 kg (94 lb) 03/14/2022 43.5 kg (96 lb) 01/10/2022 43.2 kg (95 lb 3.2 oz) 12/19/2021 44.3 kg (97 lb 9.6 oz) 10/24/2021 44.5 kg (98 lb) 06/27/2021 44.5 kg (98 lb) 06/08/2021 44.9 kg (99 lb) 05/03/2021 44 kg (97 lb) General Appearance: Well appearing, alert, in no acute distress, well-hydrated, well nourished. andThin. Neck: Supple, no adenopathy; thyroid symmetric, normal size, no bruits. Lungs: Lungs clear to auscultation. No wheezing, rhonchi, rales.. Heart: RRR without murmur, gallop, or rubs. No ectopy. Abdomen: Normal abdominal exam, Abdomen soft, non-tender. Bowel sounds normal. No masses, organomegaly. Extremities: No deformities, edema, skin discoloration, clubbing or cyanosis. Good capillary refill. . Peripheral Pulses: Normal. Health Maintenance List BP CONTROLLED (<130/80) due on 02/13/2022 MAMMOGRAM due on 07/31/2023 ANNUAL PCP TEAM CHRONIC DISEASE VISIT due on 09/27/2023 DIABETES SCREEN due on 09/15/2025 COLORECTAL CANCER SCREENING due on 06/27/2026 LIPID SCREEN due on 09/15/2027 DTAP,TDAP,TD(3 - Td or Tdap) due on 12/18/2028 BONE DENSITY Completed INFLUENZA Completed ADVANCE DIRECTIVE DISCUSSION Completed DEPRESSION ASSESSMENT Completed HEPATITIS C SCREENING Completed SHINGRIX VACCINE Completed PNEUMOCOCCAL: 65+ Completed ALPHA-1 ANTITRYPSIN DEFICIENCY SCREENING Discontinued SPIROMETRY Discontinued COVID-19 VACCINE Discontinued Data reviewed Component Latest Ref Rng & Units 09/15/2022 11/05/2022 WBC 3.70 - 11.00 k/uL 11.87 (H) 8.70 RBC 3.90 - 5.20 m/uL 4.42 4.31 Hemoglobin 11.5 - 15.5 g/dL 15.0 15.0 Hematocrit 36.0 - 46.0 % 45.1 43.5 MCV 80.0 - 100.0 fL 102.0 (H) 100.9 (H) MCH 26.0 - 34.0 pg 33.9 34.8 (H) MCHC 30.5 - 36.0 g/dL 33.3 34.5 RDW-CV 11.5 - 15.0 % 12.2 12.4 Platelet Count 150 - 400 k/uL 313 284 MPV 9.0 - 12.7 fL 9.5 9.5 Neut% % 74.7 65.4 Abs Neut (ANC) 1.45 - 7.50 k/uL 8.86 (H) 5.68 Lymph% % 15.2 21.8 Abs Lymph 1.00 - 4.00 k/uL 1.80 1.90 Barnes% % 7.8 10.1 Abs Barnes <0.87 k/uL 0.93 (H) 0.88 (H) Eosin% % 1.5 1.8 Abs Eosin <0.46 k/uL 0.18 0.16 Baso% % 0.5 0.7 Abs Baso <0.11 k/uL 0.06 0.06 Immature Gran % % 0.3 0.2 IMMATURE GRANS (ABS) <0.10 k/uL 0.04 <0.03 NRBC /100 WBC 0.0 0.0 Absolute nRBC <0.01 k/uL <0.01 <0.01 DTYPE Auto Auto Protein, Total 6.3 - 8.0 g/dL 6.5 Albumin 3.9 - 4.9 g/dL 4.1 Calcium 8.5 - 10.2 mg/dL 9.2 Bilirubin, Total 0.2 - 1.3 mg/dL 0.5 Alkaline Phosphatase 34 - 123 U/L 57 AST 13 - 35 U/L 20 ALT 7 - 38 U/L 15 Glucose 74 - 99 mg/dL 94 BUN 7 - 21 mg/dL 14 Creatinine 0.58 - 0.96 mg/dL 0.69 Sodium 136 - 144 mmol/L 137 Potassium 3.7 - 5.1 mmol/L 4.1 Chloride 97 - 105 mmol/L 102 CO2 22 - 30 mmol/L 25 Anion Gap 9 - 18 mmol/L 10 eGFR >=60 mL/min/1.73m 96 Total Cholesterol, Nonfasting <200 mg/dL 181 Triglycerides, Nonfasting <150 mg/dL 84 HDL Cholesterol, Nonfasting >39 mg/dL 87 LDL Cholesterol, Nonfasting <100 mg/dL 77 Non HDL Cholesterol, Nonfasting <130 mg/dL 94 VLDL Cholesterol, Nonfasting <30 mg/dL 17 Total Chol/HDL Ratio, Nonfasting <5.10 mg/dL 2.08 LDL/HDL Ratio, Nonfasting <2.54 mg/dL 0.89 Hemoglobin A1C 4.3 - 5.6 % 5.2 Estimated Average Glucose mg/dL 103 Vitamin B12 232 - 1,245 pg/mL 1,692 (H) Magnesium 1.7 - 2.3 mg/dL 2.1 TSH 0.270 - 4.200 mIU/L 1.190 A/P ASSESSMENT/PLAN: 1. Weight loss - ICD9: 783.21, ICD10: R63.4 (primary diagnosis) Will check - US ABDOMEN COMPLETE: if normal with proceed to CT w and w/o contrast of abd/pelv. - TSH BLD - T4 FREE/FREE THYROX - check CT of chest without contrast. 2. Ex-smoker - ICD9: V15.82, ICD10: Z87.891 Check - US ABDOMEN COMPLETE - check CT chest without contrast at [facility] w 3. Multiple thyroid nodules - ICD9: 241.1, ICD10: E04.2 Check - TSH BLD - T4 FREE/FREE THYROX 4. Lung nodules - ICD9: 793.19, ICD10: R91.8 - check CT chest. 5. Osteoporosis, unspecified osteoporosis type, unspecified pathological fracture presence - ICD9: 733.00, ICD10: M81.0 - CONSULT TO ENDOCRINOLOGY: for input on options since both times she was on fosamax she did ok butwhen stopped her osteoporosis worsened. Keep next routine appt. I spent a total of 34 minutes on the date of the service which included preparing to see the patient, [id number] patient care, completing clinical documentation, performing a medically appropriate examination, counseling and educating the patient/family/caregiver and ordering medications, tests, or procedures. Rito Camp MD documented in this encounterPark[facility]03-17-[facility]23 Miscellaneous Notes* Telephone Encounter - Rito Camp MD - 11/16/2022 12:44 PM EDT Let patient know her DXA scan shows worsening of her osteoporosis. See if willing to meet with endocrine to determine next best coarse of action. Discussed her DXA scan results at her visit on 11/19/2022. documented in this encounterPark[facility]03-14-2023 History of Present illness Narrative* Bashir Landa RT(R) - 11/13/2022 9:30 AM EDT Radiology Service Progress Note PATIENT NAME: Diony Ramirez DATE OF SERVICE: November 13, 2022 TIME: 9:26 AM PATIENT IDENTITY VERIFICATION COMPLETED USING TWO (2) IDENTIFIERS: Name and Date of confirmedby patient verbally. FALL SCREENING: Has the patient had 2 falls in the last year or 1 fall with injury or currently using an Ambulatory Assistive Device (Walker, Cane, Wheelchair, Crutches, etc.)? No PATIENT GENDER DATA: Female. status: : No status: NO. PATIENT RELEVANT IMPLANT DATA REVIEWED: Not Applicable RADIOLOGY DEPARTMENT: Bone Density PERIPHERAL IV DATA: Not applicable SIGNED BY: RT Rivka(R) November 13, 2022 9:26 AM documented in this encounterParkwood [facility]03-13-2023 History of Present illness Narrative* Ruth Denton RN - 11/12/2022 3:05 PM EDT INSIGHT CDM TELEPHONIC OUTREACH FYI: Pt states she has always had trouble breathing, She states she has had some times lately she feels like an elephant is on my chest. She it comes and goes. Stated she had that feeling when she hadcovid before. Pt denies having taken covid test. Pt states she has had covid X 2. Pt was in [place] a couple weeks ago and wonders if this may be related to the RED TIDE. Offered a virtualist visit today. Pt denies need. States she has a PCP visit with [facility] on November 19. Advised if any escalating symptoms to call [facility] and described it's purpose and what kind of calls touse it for. Pt verbalizes understanding. Advised patient if symptoms become unmanageable to go to express care or ED. Pt verbalizes understanding. Pt appreciative for call. Contact made with patient: Yes Patient identified by name and . Discussed care with patient It s nice talking to you again. As a reminder, this is our bi-weekly check-in where I will be asking you questions about your health. This will only take a few minutes of your time. Is this a good time? Yes Symptoms What Chronic Disease(s) does the patient have: COPD Do you check your blood pressures at home? No Do you have new or worse shortness of breath with activity? No Do you have new or worsening cough? No Do you have new or worsening wheezing? No Do you need to use your rescue (Albuterol) inhaler or nebulizer more often than normal? No Are you having any other symptoms that your PCP needs to know about? No Symptoms: Symptom Escalation PAL[facility] Education Ordered -: No The patient required an escalation for symptom(s)? No Medications Do you have any questions about taking your medication or which medications you should be on? No Do you need any medication refills at this time, including any of the medications you might take only when needed? No Social We would like to make sure you have what you need so that your basic needs are met- including your personal safety, food, housing, transportation and medications? Would you like to speak with a social work medical director/head team physician to help give you support for any of these needs? No It can be normal to feel anxious or down during a time like this. Would you like to talk to a mental health professional about how you have been feeling? No Closing Thank you for taking the time to talk with me today. We want to work with you to ensure that we arekeeping your medical condition(s) well-controlled and to keep you healthy and out of the doctor's office or hospital. It s also not too late for me to sign you up for automated weekly questionnaires through [employer]. This is an easy way for us to stay connected each week. Are you interested? No, I understand. We can always sign you up in the future if you change your mind. Just as a reminder, will continue to call you every other week to check in on your health. Our calls should take 10-15 minutes or less. Remember, if you have concerns in between our calls, please call your PCP's office right away. Thank you. Enter next patient outreach date for two weeks on the same day of the week as today in the Track PtOutreach and End outreach. documented in this encounterPark[facility]03-07-2023 Miscellaneous Notes* Telephone Encounter - Ainsley Del Valle Ma - 11/06/2022 9:12 AM EST Patient notified and verbalized understanding Ainsley Del Valle Ma * Telephone Encounter - Rito Camp MD - 11/05/2022 8:58 PM EST Let patient know repeat CBC was ok. documented in this encounterParkwood Hospital01-26-2023 Instructions* Patient Instructions* Rito Camp MD - 09/27/2022 10:24 AM EST Please get non-fasting blood count on or after 10/31/2022 documented in this encounterParkwood Hospital01-26-2023 History of Present illness Narrative* Rito Camp MD - 09/27/2022 10:00 AM EST Medicare Yearly Visit Medical B eligibilty date Not able to find Date of last exam NA PAST MEDICAL HISTORY Diagnosis Date Abnormal toxicological findings 02/01/2021 Tox screen 01/27/2021 showed no benzos and pos for oxycodone which patient was not on. Patient informed of no further controlled med refills. 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 Chronic anxiety 06/17/2018 Degenerative arthritis of lumbar spine 05/06/2014 Elevated blood sugar 01/27/2021 Emphysema of lung (HCC) 03/18/2015 Essential hypertension, benign 02/21/2015 Ex-smoker 01/27/2021 Started around 89 and quit 2004. Smoked about 1.5 PPD GERD without esophagitis 09/12/2022 Herpes 01/27/2021 History of 2019 novel coronavirus disease (COVID-19) 01/27/202106/2020 HSV (herpes simplex virus) anogenital infection 02/08/2016 Lung mass 09/07/2011 Lung nodules 05/30/[address] Suleman Gustafson Medicare annual wellness visit, subsequent 01/27/2021 Medicare Part B: NA Last done: Multiple thyroid nodules 01/27/[address] Vigil and f/u was stable. Told no need for further f/u. 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 Takes mid morning. Substance agreement signed and Tox screen done 12/2020. 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 COLONOSCOPY FLX DX W/COLLJ SPEC WHEN PFRMD 08/19/2006 Repeat in -2015 COLONOSCOPY FLX DX W/COLLJ SPEC WHEN PFRMD 06/27/2016 Colonoscopy CRANIOPLASTY SKULL DEF/REPAIR/ BRAIN 09/14/2014 See scanned documents - status post ESOPHAGOGASTRODUODENOSCOPY TRANSORAL DIAGNOSTIC 06/27/2016 EGD ESOPHAGOGASTRODUODENOSCOPY TRANSORAL DIAGNOSTIC 06/30/2018 EGD I&D ABSCESS CMPLX/MULT 07/2013 Epidural abscess- MSSA LIG/TRNSXJ FLP TUBE ABDL/VAG APPR UNI/BI Tubal ligation PAST SURGICAL HISTORY OF spinal surgery PAST SURGICAL HISTORY OF retinal detachment OD, (2 tears) PAST SURGICAL HISTORY OF 2012 back surgery STRESS TEST NUCLEAR 05/23/2021 negative ALLERGIES: Fish, Horse Serum [Other], Lisinopril, and Seafood [Other] Medications reviewed: Yes FAMILY HISTORY Problem Relation Age of Onset Hypertension Mother other (cerebral aneurysm) Mother Colon Polyps Father Hypertension Father COPD Father Cancer Father Bladder Cancer other (Past medical history) Father abdominal aneurysm/bladder cancer other (aortic aneurysm) Father Aneurysm Paternal Grandfather SOCIAL HISTORY: Social History Tobacco Use Smoking status: Former Packs/day: 1.50 Years: 15.00 Pack years: 22.50 Types: Cigarettes Quit date: 07/31/2005 Years since quittin.1 Smokeless tobacco: Never Vaping Use Vaping Use: Never used Substance Use Topics Alcohol use: Yes Alcohol/week: 25.0 - 37.5 standard drinks Types: 10 - 15 Cans of Beer (12oz) per week Comment: 5-8 beers daily Drug use: No Diony works out regularly 3-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 She watches her diet for sodium, low fat and low cholesterol some of the time. List of current specialists seen: - Dr. Suleman Gustafson (Pulm) - Dr. Shore (Urology) - optho End of Live Planning discussed including patients advanced directive wishes: Yes I am willing to follow [employer]'s advanced directives. PHQ-2 / Depression screen Depression Screening 03/28/2016 08/06/2017 09/04/2018 09/27/2022 PHQ-2 Score 2 1 1 0 Depression screening tool completed and reviewed. Based on score and interview, patient is not at risk for depression. Screening tool discussed with patient, and I recommended no further interventionat this time. Functional Ability/Safety Screen 1. Was the patient's timed Up and Go test unsteady or longer than 30 seconds? No 2. Does the patient need help with the phone, transportation, shopping,preparing meals, housework, laundry, medications or managing money? No 3. Does your home have rugs in the hallway (Y), lack of grab bars in the bathroom, lack of handrails on the stairs or have poor lighting? No Hearing Evaluation: normal PHYSICAL EXAM BP 130/80 (BP Site: Right Arm, BP Position: Sitting, BP Cuff Size: Regular Adult) Pulse 82 Resp18 Ht 144.8 cm (4' 9) Wt 42.2 kg (93 lb) LMP 03/23/2007 BMI 20.13 kg/m Alert and oriented X 3: YES Body mass index is 20.13 kg/m . Visual acuity: seeing optho See below ASSESSMENT/PLAN: 67 year old female The following prevention plan was discussed during the office visit and provided to the patient: See below Rito Camp MD Chief Complaint Patient presents with: Physical HPI Diony Ramirez is a 67 year old female who presents here today for Physical. Patient with Hx of Asthma/COPD seeing Dr. Gustafson, chronic anxiety, HTN, Manic disorder, arnold-chiari malformation, insomnia, heavy alcohol intake, herpes, ex-smoker, chronic neck and lumbar pain as well as those reviewed and addressed below and in ROS. Patient has been doing well. Still drinking 5-8 beers a day and typically later in the day. With the trazodone she can fall asleep but then in about 3 hrs she is awake again. Past medical history, appointments, medications, allergies reviewed. Previous Medical History PAST MEDICAL HISTORY Diagnosis Date Abnormal toxicological findings 02/01/2021 Tox screen 01/27/2021 showed no benzos and pos for oxycodone which patient was not on. Patient informed of no further controlled med refills. 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 Chronic anxiety 06/17/2018 Degenerative arthritis of lumbar spine 05/06/2014 Elevated blood sugar 01/27/2021 Emphysema of lung (HCC) 03/18/2015 Essential hypertension, benign 02/21/2015 Ex-smoker 01/27/2021 Started around 89 and quit 2004. Smoked about 1.5 PPD GERD without esophagitis 09/12/2022 Herpes 01/27/2021 History of 2019 novel coronavirus disease (COVID-19) 01/27/202106/2020 HSV (herpes simplex virus) anogenital infection 02/08/2016 Lung mass 09/07/2011 Lung nodules 05/30/[address] Suleman Gustafson Medicare annual wellness visit, subsequent 01/27/2021 Medicare Part B: NA Last done: Multiple thyroid nodules 01/27/[address] Vigil and f/u was stable. Told no need for further f/u. 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 Takes mid morning. Substance agreement signed and Tox screen done 12/2020. 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 COLONOSCOPY FLX DX W/COLLJ SPEC WHEN PFRMD 08/19/2006 Repeat in COLONOSCOPY FLX DX W/COLLJ SPEC WHEN PFRMD 06/27/2016 Colonoscopy CRANIOPLASTY SKULL DEF/REPAIR/ BRAIN 09/14/2014 See scanned documents - status post ESOPHAGOGASTRODUODENOSCOPY TRANSORAL DIAGNOSTIC 06/27/2016 EGD ESOPHAGOGASTRODUODENOSCOPY TRANSORAL DIAGNOSTIC 06/30/2018 EGD I&D ABSCESS CMPLX/MULT 07/2013 Epidural abscess- MSSA LIG/TRNSXJ FLP TUBE ABDL/VAG APPR UNI/BI Tubal ligation PAST SURGICAL HISTORY OF spinal surgery PAST SURGICAL HISTORY OF / retinal detachment OD, (2 tears) PAST SURGICAL HISTORY OF 2012 back surgery STRESS TEST NUCLEAR 05/23/2021 negative Family History FAMILY HISTORY Problem Relation Age of Onset Hypertension Mother other (cerebral aneurysm) Mother Colon Polyps Father Hypertension Father COPD Father Cancer Father Bladder Cancer other (Past medical history) Father abdominal aneurysm/bladder cancer other (aortic aneurysm) Father Aneurysm Paternal Grandfather Patient Allergies ALLERGIES Allergen Reactions Fish Unknown Horse Serum [Other] Unknown Lisinopril Cough Seafood [Other] Unknown Current Medications Current Outpatient Medications on File Prior to Visit Medication Sig amLODIPine (NORVASC) 2.5 mg tablet Take 1 tablet by mouth once daily. traZODone (DESYREL) 150 mg tablet Take 1 tablet by mouth daily at bedtime. acyclovir (ZOVIRAX) 400 mg tablet Take 1 tablet by mouth twice daily. alendronate (FOSAMAX) 70 mg tablet Take 1 tablet by mouth one time a week. Take with a full glass of water, on an empty stomach; do NOT lie down for 30minutes. albuterol (PROVENTIL) 2.5 mg /3 mL (0.083 %) nebulizer solution Use 3 mL via nebulizer every 4 hours as needed for wheezing/shortness of breath. Use over 5-15minutes. tolterodine ER (DETROL LA) 4 mg 24 hr capsule Take 1 capsule by mouth once daily. (Patient not taking: Reported on 05/28/2022) omeprazole (PRILOSEC) 40 mg capsule Take 1 capsule by mouth once daily. ZINC ORAL Take by mouth as directed. folic acid 1 mg tablet Take 1 mg by mouth once daily. rx has B12 in it (Patient not taking: No sig reported) SYMBICORT 160-4.5 mcg/actuation inhaler SPIRIVA RESPIMAT 2.5 mcg/actuation inhaler BIOTIN ORAL Take 5,000 mcg by mouth. ascorbic acid/collagen hydr (COLLAGEN PLUS VITAMIN C ORAL) Take 1,000 mg by mouth twice daily. albuterol HFA (PROAIR HFA) 90 mcg/actuation inhaler Inhale 2 Puffs as instructed every 4 hours as needed for Wheezing/Shortness of Breath. Melatonin 5 mg cap 5 mg by mouth taken 2 hours prior to bedtime (Patient taking differently: 10 mg.5 mg by mouth taken 2 hours prior to bedtime) Ascorbic Acid (VITAMIN C) 1,000 mg TbER Take by mouth. Calcium Carb-Cholecalciferol (CALCIUM 600 WITH VITAMIN D3) 600-200 mg-unit ORAL Tab Take one(1) tablet two(2) times daily. No current facility-administered medications on file prior to visit. Social History Social History Tobacco Use Smoking status: Former Packs/day: 1.50 Years: 15.00 Pack years: 22.50 Types: Cigarettes Quit date: 07/31/2005 Years since quittin.1 Smokeless tobacco: Never Vaping Use Vaping Use: Never used Substance Use Topics Alcohol use: Yes Alcohol/week: 25.0 - 37.5 standard drinks Types: 10 - 15 Cans of Beer (12oz) per week Comment: 5-8 beers daily Drug use: No Review of Symptoms REVIEW OF SYSTEMS GENERAL: No weight loss, malaise or fevers HEENT: Negative for frequent or significant headaches, No changes in hearing or vision, no nose bleeds or other nasal problems NECK: Negative for lumps, goiter, pain and significant neck swelling RESPIRATORY: Negative for cough, hemoptysis, increased wheezing, COPD, dyspnea or shortness of breath CARDIOVASCULAR: Negative for chest pain, leg swelling, hypertension, CHF or palpitations GI: No nausea, vomiting, or diarrhea, No heartburn or reflux symptoms, and no blood : No history of dysuria, blood MUSCULOSKELETAL: Negative for joint pain or swelling, back pain or muscle pain SKIN: Negative for lesions, rash, and itching PSYCH: Negative for sleep disturbance, mood disorder and recent psychosocial stressors HEMATOLOGY/LYMPHOLOGY: Negative for prolonged bleeding, bruising easily or swollen nodes ENDOCRINE: Negative for cold or heat intolerance, polyuria, polydipsia and goiter NEURO: No history of headaches, syncope, paralysis, seizures or tremors EXAM: BP 130/80 (BP Site: Right Arm, BP Position: Sitting, BP Cuff Size: Regular Adult) Pulse 82 Resp18 Ht 144.8 cm (4' 9) Wt 42.2 kg (93 lb) LMP 03/23/2007 BMI 20.13 kg/m Last 4 Encounter Wt Readings: Date: Wt: 09/27/2022 42.2 kg (93 lb) 07/31/2022 42.6 kg (94 lb) 07/04/2022 42.3 kg (93 lb 3.2 oz) 05/28/2022 41.7 kg (92 lb) General Appearance: Well appearing, alert, in no acute distress, well-hydrated, well nourished.. Skin: Skin color, texture, turgor normal, no suspicious rashes or lesions. Head: Normocephalic, no masses, lesions, tenderness or abnormalities. Eyes: Anicteric sclera. Pupils are equally round and reactive to light. Extraocular movements are intact. . Ears: External ears, TM's normal, canals clear. Nose/Sinuses: Nares normal, septum midline, mucosa normal, no drainage or sinus tenderness. Oropharynx: Lips, mucosa, and tongue normal, teeth and gums normal, oropharynx normal. Neck: Supple, no adenopathy; thyroid symmetric, normal size, no bruits. Lungs: Lungs clear to auscultation. No wheezing, rhonchi, rales.. Heart: RRR without murmur, gallop, or rubs. No ectopy. Abdomen: Normal abdominal exam, Abdomen soft, non-tender. Bowel sounds normal. No masses, organomegaly. Extremities: No deformities, edema, skin discoloration, Good capillary refill. . Musculoskeletal: Muscular strength intact, No joint swelling, deformity, or tenderness. Peripheral Pulses: Normal. Neurologic: Gait normal. Reflexes normal and symmetric. Sensation to light touch and crainal nerves2-12 intact.. Health Maintenance List ALPHA-1 ANTITRYPSIN DEFICIENCY SCREENING Never done ADVANCE DIRECTIVE DISCUSSION Never done DEPRESSION ASSESSMENT Never done ANNUAL PCP TEAM CHRONIC DISEASE VISIT due on 07/09/2023 MAMMOGRAM due on 07/31/2023 BP CONTROLLED (<130/80) due on 07/31/2023 DIABETES SCREEN due on 09/15/2025 COLORECTAL CANCER SCREENING due on 06/27/2026 LIPID SCREEN due on 09/15/2027 DTAP,TDAP,TD(3 - Td or Tdap) due on 12/18/2028 BONE DENSITY Completed INFLUENZA Completed HEPATITIS C SCREENING Completed SHINGRIX VACCINE Completed PNEUMOCOCCAL: 65+ Completed SPIROMETRY Discontinued COVID-19 VACCINE Discontinued Data reviewed Component Latest Ref Rng & Units 09/21/2021 12/19/2021 09/15/2022 WBC 3.70 - 11.00 k/uL 7.44 11.87 (H) RBC 3.90 - 5.20 m/uL 4.41 4.42 Hemoglobin 11.5 - 15.5 g/dL 14.5 15.0 Hematocrit 36.0 - 46.0 % 44.9 45.1 MCV 80.0 - 100.0 fL 101.8 (H) 102.0 (H) MCH 26.0 - 34.0 pg 32.9 33.9 MCHC 30.5 - 36.0 g/dL 32.3 33.3 RDW-CV 11.5 - 15.0 % 12.5 12.2 Platelet Count 150 - 400 k/uL 284 313 MPV 9.0 - 12.7 fL 9.6 9.5 Neut% % 59.3 74.7 Abs Neut (ANC) 1.45 - 7.50 k/uL 4.39 8.86 (H) Lymph% % 27.3 15.2 Abs Lymph 1.00 - 4.00 k/uL 2.03 1.80 Barnes% % 10.1 7.8 Abs Barnes <0.87 k/uL 0.75 0.93 (H) Eosin% % 2.4 1.5 Abs Eosin <0.46 k/uL 0.18 0.18 Baso% % 0.9 0.5 Abs Baso <0.11 k/uL 0.07 0.06 Immature Gran % % 0.3 IMMATURE GRANS (ABS) <0.10 k/uL 0.04 NRBC /100 WBC 0.0 Absolute nRBC <0.01 k/uL <0.01 <0.01 DTYPE Auto Nucleated Reds 0 /100 WBC 0.0 Diff Type Auto Diff Protein, Total 6.3 - 8.0 g/dL 7.0 6.5 Albumin 3.9 - 4.9 g/dL 4.4 4.1 Calcium 8.5 - 10.2 mg/dL 9.0 9.2 Bilirubin, Total 0.2 - 1.3 mg/dL 0.5 0.5 Alkaline Phosphatase 34 - 123 U/L 53 57 AST 13 - 35 U/L 19 20 Glucose 74 - 99 mg/dL 95 94 BUN 7 - 21 mg/dL 18 14 Creatinine 0.58 - 0.96 mg/dL 0.66 0.69 Sodium 136 - 144 mmol/L 140 137 Potassium 3.7 - 5.1 mmol/L 4.6 4.1 Chloride 97 - 105 mmol/L 102 102 CO2 22 - 30 mmol/L 26 25 Anion Gap 9 - 18 mmol/L 12 10 ALT 7 - 38 U/L 15 15 eGFR- >60 eGFR-All Other Races . >60 eGFR >=60 mL/min/1.73m 96 Color Yellow Light Yellow Clarity Clear Clear Glucose, Urine Trace, Negative Negative Bilirubin, Urine Negative Negative Ketones, Urine Trace, Negative Negative Specific [place], Ur 1.005 - 1.030 1.017 Hemoglobin/Blood,Ur Negative, Trace Negative pH, Urine 5.0 - 8.0 8.0 Protein, Urine Trace, Negative Trace Urobilinogen Negative Negative Nitrites Negative Negative Leukest Negative, 25 Lalita/mL Negative WBC, Urine 0-5 /HPF 0-5 /HPF RBC, Urine 0-3 /HPF 0-3 /HPF Epithelial Cells /HPF Few Total Cholesterol, Nonfasting <200 mg/dL 186 181 Triglycerides, Nonfasting <150 mg/dL 53 84 HDL Cholesterol, Nonfasting >39 mg/dL 88 87 LDL Cholesterol, Nonfasting <100 mg/dL 87 77 Non HDL Cholesterol, Nonfasting <130 mg/dL 98 94 VLDL Cholesterol, Nonfasting <30 mg/dL 11 17 Total Chol/HDL Ratio, Nonfasting <5.10 mg/dL 2.11 2.08 LDL/HDL Ratio, Nonfasting <2.54 mg/dL 0.99 0.89 Hemoglobin A1C 4.3 - 5.6 % 5.1 5.2 Estimated Average Glucose mg/dL 100 103 TSH 0.270 - 4.200 mIU/L 1.540 1.190 Vitamin B12 232 - 1,245 pg/mL >2,000 (H) 1,692 (H) Magnesium 1.7 - 2.3 mg/dL 2.1 A/P ASSESSMENT/PLAN: 1. Medicare annual wellness visit, subsequent - ICD9: V70.0, ICD10: Z00.00 (primary diagnosis) - Counseled on healthy diet and regular exercise - Calcium intake with supplements or by diet of 1000 mg/day for under 50, 1200- 1500 mg/day for 50+ - Follow up for annual exam in one year 2. Essential hypertension, benign - ICD9: 401.1, ICD10: I10 - good control - Continue current medication(s) - Recommended regular aerobic exercise. - Recommend home blood pressure monitoring, to bring results in on next visit - Goal of BP <130/80 3. Chronic anxiety - ICD9: 300.00, ICD10: F41.9 - stable. refused to see Psych in the past as advised. 4. Asthma with COPD with exacerbation (HCC) - ICD9: 493.22, ICD10: J44.1, J45.901 COPD stable - Continue current meds - Avoidance of triggers recommended - management per Pulm 5. Pulmonary emphysema, unspecified emphysema type (HCC) - ICD9: 492.8, ICD10: J43.9 - as per #4 6. Elevated blood sugar - ICD9: 790.29, ICD10: R73.9 - controled with life style changes. 7. GERD without esophagitis - ICD9: 530.81, ICD10: K21.9 - Continue treatment with Prilosec 40 mg QD 8. Manic disorder, recurrent episode, moderate (HCC) - ICD9: 296.12, ICD10: F31.89 - stable, refused to see Psych in the past as advised. 9. Psychophysiological insomnia - ICD9: 307.42, ICD10: F51.04 - will add Hydroxyzine 10 mg QHS for two weeks and if not improved she was instructed to go to taking two before bed. 10. Heavy alcohol use - ICD9: V49.89, ICD10: F10.90 - advised to cut back - advised patient this can be a cause for her poor sleep patterens. 11. Arnold-Chiari malformation (HCC) - ICD9: 741.00, ICD10: Q07.00 - no clinical issues. 12. Overactive bladder - ICD9: 596.51, ICD10: N32.81 - was seeing urology but stopped going. 13. Advance directive discussed with patient - ICD9: V65.49, ICD10: Z71.89 - up to date 14. Leukocytosis, unspecified type - ICD9: 288.60, ICD10: D72.829 In a month recheck - CBC + DIFF 15. Osteoporosis, unspecified osteoporosis type, unspecified pathological fracture presence - ICD9:733.00, ICD10: M81.0 Will have patient complete her current script for Fosamax and then stop. Check - DXA-AXIAL SKELETON Requested Prescriptions Signed Prescriptions Disp Refills hydrOXYzine HCl (ATARAX) 10 mg tablet 90 tablet 1 Sig: Take 1 tablet by mouth daily at bedtime. F/u in a year or sooner if issues. I spent a total of 40 minutes on the date of the service which included preparing to see the patient, [id number] patient care, completing clinical documentation, performing a medically appropriate examination, counseling and educating the patient/family/caregiver and ordering medications, tests, or procedures. Rito Camp MD documented in this encounterPark[facility]01-16-[facility] History of Present illness Narrative* Kami Hunter, ELDER - 09/17/2022 12:44 PM EST [facility] TELEPHONIC OUTREACH Provider Action/FYI: Patient returned call to this nurse. Patient reports she is doing good, states she is leaving for [place] 10/01 and will be back the first of October. Patient has no questions, concerns, needs at this time. Contact made with patient: Yes Patient identified by name and . Discussed care with patient It s nice talking to you again. As a reminder, this is our bi-weekly check-in where I will be asking you questions about your health. This will only take a few minutes of your time. Is this a good time? Yes Symptoms What Chronic Disease(s) does the patient have: COPD Do you check your blood pressures at home? No Do you have new or worse shortness of breath with activity? No Do you have new or worsening cough? No Do you have new or worsening wheezing? No Do you need to use your rescue (Albuterol) inhaler or nebulizer more often than normal? No Are you having any other symptoms that your PCP needs to know about? No Symptoms: No Symptom Escalation PALOMA Education Ordered -: No The patient required an escalation for symptom(s)? No Medications Do you have any questions about taking your medication or which medications you should be on? No Do you need any medication refills at this time, including any of the medications you might take only when needed? No Social We would like to make sure you have what you need so that your basic needs are met- including your personal safety, food, housing and medications? Would you like to speak with a social work medical director/head team physician to help give you support for any of these needs? No It can be normal to feel anxious or down during a time like this. Would you like to talk to a mental health professional about how you have been feeling? No Closing Thank you for taking the time to talk with me today. We want to work with you to ensure that we arekeeping your medical condition(s) well-controlled and to keep you healthy and out of the doctor's office or hospital. It s also not too late for me to sign you up for automated weekly questionnaires through [facility]. This is an easy way for us to stay connected each week. Are you interested? No, I understand. We can always sign you up in the future if you change your mind. Just as a reminder, will continue to call you every other week to check in on your health. Our calls should take 10-15 minutes or less. Remember, if you have concerns in between our calls, please call your PCP's office right away. Thank you. Enter next patient outreach date for two weeks on the same day of the week as today in the Track PtOutreach and End outreach. * Kami Hunter RN - 09/17/2022 12:08 PM EST [facility] TELEPHONIC OUTREACH Provider Action/FYI: Contact made with patient: No - Left message Radha my name is Kami Hunter RN your Lace Machine Operator from the [facility] I am calling today for your bi-weekly check in. I am sorry I missed your call. I will reach out to you again tomorrow. (if the third call I will reach out to you again next week) Enter next patient outreach date for the following day using the Track Pt Outreach. End outreach. documented in this encounterParkwood Hospital01-11-2023 Miscellaneous Notes* Telephone Encounter - Aury Newton MA - 09/12/2022 11:12 AM EST Change appointment and contacted patient left detailed message for patient. Aury Newton MA * Telephone Encounter - Rito Camp MD - 09/12/2022 10:15 AM EST Please change her appt into 40 min since it should be a complete PE. Labs placed. * Telephone Encounter - Leslye Grayson - 09/12/2022 8:34 AM EST PT is requesting full blood work before her appointment on 09-27-21, please advise and assist. Leslye PSS documented in this encounterParkwood Hospital12-27-2022 Miscellaneous Notes* Telephone Encounter - Fannie Centeno LPN - 08/28/2022 4:45 PM EST Requesting Refill: PT Date of given. Last Office Visit: 07/09/22 Future Office Visit: 09/27/22 Requested Prescriptions Pending Prescriptions Disp Refills amLODIPine (NORVASC) 2.5 mg tablet 90 tablet 1 Sig: Take 1 tablet by mouth once daily. traZODone (DESYREL) 150 mg tablet 90 tablet 1 Sig: Take 1 tablet by mouth daily at bedtime. Date of last Labs: 12/19/21 Fannie Centeno LPN Pt * Telephone Encounter - Bushra Orozco - 08/27/2022 1:03 PM EST Patient has been identified by name and date of : Yes, Patient phones for refill(s): Requested Prescriptions Pending Prescriptions Disp Refills amLODIPine (NORVASC) 2.5 mg tablet 90 tablet 1 Sig: Take 1 tablet by mouth once daily. traZODone (DESYREL) 150 mg tablet 90 tablet 1 Sig: Take 1 tablet by mouth daily at bedtime. Date of last office visit in primary care: Last 2 Encounter Wt Readings: Date: Wt: 07/31/2022 42.6 kg (94 lb) 07/04/2022 42.3 kg (93 lb 3.2 oz) Previous labs/tests for medication: Not applicable Please advise. Thank you. Bushra Orozco documented in this encounterParkwood Hospital12-16-2022 Miscellaneous Notes* Telephone Encounter - Rito Camp MD - 08/17/2022 5:22 PM EST The following approved medication requests have been transmitted electronically. Requested Prescriptions Signed Prescriptions Disp Refills alendronate (FOSAMAX) 70 mg tablet 12 tablet 3 Sig: Take 1 tablet by mouth one time a week. Take with a full glass of water, on an empty stomach; do NOT lie down for 30minutes. Authorizing Provider: RITO CAMP MD * Telephone Encounter - Aury Newton MA - 08/17/2022 5:05 PM EST Patient has been identified by name and date of : Yes Requested Prescriptions Pending Prescriptions Disp Refills alendronate (FOSAMAX) 70 mg tablet 12 tablet 3 Sig: Take 1 tablet by mouth one time a week. Take with a full glass of water, on an empty stomach; do NOT lie down for 30minutes. RX INSTRUCTIONS: Patient aware RX will be sent to pharmacy. No need to notify patient. Aury Newton MA Chloe: 10/2021 Nov: 09/2022 Last refill: 09/2021 * Telephone Encounter - Angella Ulrich - 08/17/2022 2:01 PM EST Patient has been identified by name and date of : Yes Last office visit in this department: 07/09/2022 RX INSTRUCTIONS: Patient aware RX will be sent to pharmacy. No need to notify patient. Patient phones requesting refills as follows: Requested Prescriptions Pending Prescriptions Disp Refills alendronate (FOSAMAX) 70 mg tablet 12 tablet 3 Sig: Take 1 tablet by mouth one time a week. Take with a full glass of water, on an empty stomach; do NOT lie down for 30minutes. Please review and advise. Angella Ulrich documented in this encounterParkwood Hospital12-13-2022 History of Present illness Narrative* Angella Ulrich - 08/14/2022 3:56 PM EST Pt called back. She would like to keep the appt as it is scheduled. She thought she was going out of town but she is in town still on the scheduled date. * Ainsley Gutierrez MA - 08/14/2022 3:46 PM EST [facility]ATION OUTREACH Action/I August 14, 2022 Attempted to reach patient to assist with rescheduling her upcoming appointment. No answer, left message for her to return call for scheduling assistance. Thank you Pt identified by name and : NO Outreach Outcome/Action Unable to reach patient: Left message Did you use a PCP flex slot to schedule this appointment? N/A Reason for Outreach [facility] Payer: Payor: KAJAL [employer] / Plan: KAJAL [employer] HMO / Product Type: HMO / Care Gap Reviewed:: Follow-up appointment Reminder: Reminder note to check Health Maintenance for items below Health Maintenance items due: ALPHA-1 ANTITRYPSIN DEFICIENCY SCREENING Never done ADVANCE DIRECTIVE DISCUSSION Never done DEPRESSION ASSESSMENT Never done Navigation Signature: Ainsley Gutierrez MA August 14, 2022 3:47 PM * Kami Hunter RN - 08/14/2022 3:19 PM EST [facility]LEPHON[facility]REACH Provider Action/: Please contact patient to reschedule 09/27/21 pcp appt. Thank you. Patient reports she is doing good, verified upcoming pcp appt 09/27/22 Patient had no questions, concerns, needs at this time. Contact made with patient: Yes Patient identified by name and . Discussed care with patient It s nice talking to you again. As a reminder, this is our bi-weekly check-in where I will be asking you questions about your health. This will only take a few minutes of your time. Is this a good time? Yes Symptoms What Chronic Disease(s) does the patient have: COPD Do you check your blood pressures at home? No Do you have new or worse shortness of breath with activity? No Do you have new or worsening cough? No Do you have new or worsening wheezing? No Do you need to use your rescue (Albuterol) inhaler or nebulizer more often than normal? No Are you having any other symptoms that your PCP needs to know about? No Symptom Escalation The patient required an escalation for symptom(s)? No Medications Do you have any questions about taking your medication or which medications you should be on? No Do you need any medication refills at this time, including any of the medications you might take only when needed? No Social We would like to make sure you have what you need so that your basic needs are met- including your personal safety, food, housing and medications? Would you like to speak with a social work medical director/head team physician to help give you support for any of these needs? No It can be normal to feel anxious or down during a time like this. Would you like to talk to a mental health professional about how you have been feeling? No Closing Thank you for taking the time to talk with me today. We want to work with you to ensure that we arekeeping your medical condition(s) well-controlled and to keep you healthy and out of the doctor's office or hospital. It s also not too late for me to sign you up for automated weekly questionnaires through [facility]. This is an easy way for us to stay connected each week. Are you interested? No, I understand. We can always sign you up in the future if you change your mind. Just as a reminder, will continue to call you every other week to check in on your health. Our calls should take 10-15 minutes or less. Remember, if you have concerns in between our calls, please call your PCP's office right away. Thank you. Enter next patient outreach date for two weeks on the same day of the week as today in the Track PtOutreach and End outreach. documented in this encounterParkwood Hospital11-30-2022 Miscellaneous Notes* Letter - Mammography Coordinator - 08/01/2022 6:14 PM EST August 01, 2022 PID: [id number] Diony Ramirez [address] [id number] Dear Ms. Ramirez, We are pleased to inform you that the results of your recent breast imaging exam on 07/31/2022 are normal. Early detection of cancer is very important. We also understand recommendations regarding breast cancer screening are controversial. Please discuss with your primary care provider which strategy is best for you and whether a mammogram is right for you. Your imaging studies and report will be kept on file at [facility] as part of your permanent medical record and are available for your continuing care. Thank you for allowing us to help in meeting your health care needs. Sincerely, Dr. Ozuna Interpreting Radiologist [facility] (Normal over 40) documented in this encounterParkwood Hospital11-29-2022 History of Present illness Narrative* Marixa Ortiz RT(R) - 07/31/2022 9:10 AM EST Radiology Service Progress Note PATIENT NAME: Diony Ramirez DATE OF SERVICE: July 31, 2022 TIME: 9:05 AM PATIENT IDENTITY VERIFICATION COMPLETED USING TWO (2) IDENTIFIERS: Name and Date of confirmedby patient verbally. FALL SCREENING: Has the patient had 2 falls in the last year or 1 fall with injury or currently using an Ambulatory Assistive Device (Walker, Cane, Wheelchair, Crutches, etc.)? No PATIENT GENDER DATA: Female. status: : No status: NO. PATIENT RELEVANT IMPLANT DATA REVIEWED: Not Applicable RADIOLOGY DEPARTMENT: Mammography PERIPHERAL IV DATA: Not applicable SIGNED BY: RT Luis(R) July 31, 2022 9:05 AM documented in this encounterParkwood Hospital11-29-2022 History of Present illness Narrative* Ashleigh Negrete APRN.LUIS FELIPE - 07/31/2022 9:06 AM EST [employer] offered: Patient declines. Diony is a 67 year old who presents for an annual gynecologic exam without complaints. Sees Dr Shore for urinary frequency - started on a new medication, she is taking a sample medication and can not remember the name. Postmenopausal: Yes since age 51 HRT use: Yes, estrogen cream How lon years. Last Pap: 2019 normal HPV: 2019 negative History of abnormal pap: No Last mammogram: today, pending History of abnormal mammogram: No Sexually active: Yes History of STDS: Herpes - only has had two outbreaks. Suppressive antiviral takes 1-2 times a day Patient concerns for STD exposure: No. 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 Patient informed of no further controlled med refills. 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 Chronic anxiety 06/17/2018 Degenerative arthritis of lumbar spine 05/06/2014 Elevated blood sugar 01/27/2021 Emphysema of lung (HCC) 03/18/2015 Essential hypertension, benign 02/21/2015 Ex-smoker 01/27/2021 Started around 89 and quit 2004. Smoked about 1.5 PPD Herpes 01/27/2021 History of 2019 novel coronavirus disease (COVID-19) 01/27/202106/2020 HSV (herpes simplex virus) anogenital infection 02/08/2016 Lung mass 09/07/2011 Lung nodules 05/30/[address] Suleman Gustafson Medicare annual wellness visit, subsequent 01/27/2021 Medicare Part B: NA Last done: Multiple thyroid nodules 01/27/[address] Vigil and f/u was stable. Told no need for further f/u. 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 Takes mid morning. Substance agreement signed and Tox screen done 12/2020. 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 COLONOSCOPY FLX DX W/COLLJ SPEC WHEN PFRMD 08/19/2006 Repeat in COLONOSCOPY FLX DX W/COLLJ SPEC WHEN PFRMD 06/27/2016 Colonoscopy CRANIOPLASTY SKULL DEF/REPAIR/ BRAIN 09/14/2014 See scanned documents - status post ESOPHAGOGASTRODUODENOSCOPY TRANSORAL DIAGNOSTIC 06/27/2016 EGD ESOPHAGOGASTRODUODENOSCOPY TRANSORAL DIAGNOSTIC 06/30/2018 EGD I&D ABSCESS CMPLX/MULT 07/2013 Epidural abscess- MSSA LIG/TRNSXJ FLP TUBE ABDL/VAG APPR UNI/BI Tubal ligation PAST SURGICAL HISTORY OF spinal surgery PAST SURGICAL HISTORY OF retinal detachment OD, (2 tears) PAST SURGICAL HISTORY OF 2012 back surgery STRESS TEST NUCLEAR 05/23/2021 negative FAMILY HISTORY Problem Relation Age of Onset Hypertension Mother other (cerebral aneurysm) Mother Colon Polyps Father Hypertension Father COPD Father Cancer Father Bladder Cancer other (Past medical history) Father abdominal aneurysm/bladder cancer other (aortic aneurysm) Father SOCIAL HISTORY Social History Tobacco Use Smoking status: Former Packs/day: 1.50 Years: 15.00 Pack years: 22.50 Types: Cigarettes Quit date: 07/31/2005 Years since quittin.0 Smokeless tobacco: Never Vaping Use Vaping Use: Never used Substance Use Topics Alcohol use: Yes Alcohol/week: 25.0 - 37.5 standard drinks Types: 10 - 15 Cans of Beer (12oz) per week Comment: 5-8 beers daily Drug use: No REVIEW OF SYSTEMS Abdomen: No abdominal pain, nausea, vomiting, diarrhea, or constipation. No bloating, early satiety, indigestion, or increased flatulence. Bladder: No dysuria, gross hematuria, urinary frequency, urinary urgency, or incontinence. OAB treated by Dr Ramirez Breast: No breast lumps, nipple d/c, overlying skin changes, redness or skin retraction Allergies and current medication updated:Yes EXAM: BP 100/68 Ht 4' 9 (1.45m) Wt 94 lb (42.6kg) LMP 03/23/2007 BMI 20.34 kg/(m^2). GENERAL: pleasant, female in no apparent distress HEENT: Normocephalic, atraumatic, mucus membranes moist, and no lesions NECK: Supple, full range of motion, no adenopathy, and known thyroid nodules monitored by PCP DERMATOLOGY: Normal, without lesions, non-icteric, and non-hirsute BREAST: soft, non-tender, symmetric, no dominant mass, normal nipple-areolar complex, no lymphadenopathy, and no nipple discharge CHEST: Normal inspiratory effort ABDOMEN: soft, non-tender, and no masses PELVIC: external genitalia normal, normal Bartholin's glands, urethra, [place]'s glands, no vulvar lesions, no cervical lesions, physiologic discharge present, normal appearing perineal body and perianal region BIMANUAL: uterus normal size, shape and consistency, no adnexal masses, and non-tender RECTOVAGINAL: deferred. NEURO: alert and oriented x3,exam grossly non-focal EXTREMITIES: normal ASSESSMENT/PLAN: 1) Health maintenance: Pap/HPV screening no longer needed Mammogram ordered Mammogram up to date Nutrition, exercise and routine health maintenance exams reviewed. Calcium/Vitamin D supplementation information provided. Colon cancer screening: up to date with screening BMD: up to date 2020 on Fosamax for osteoporosis 2) Follow up as needed Ashleigh Negrete APRN.LUIS FELIPE documented in this encounterParkwood Hospital11-21-2022 History of Present illness Narrative* Kami Hunter RN - 07/23/2022 2:13 PM EST [facility] TELEPHONIC OUTREACH Provider Action/FYI: Patient reports she is doing good, recently had Covid, feeling much better. Patient was very happy that she was not as sick as she was with previous infection. Patient had no questions, concerns, needs at this time. Contact made with patient: Yes Patient identified by name and . Discussed care with patient It s nice talking to you again. As a reminder, this is our bi-weekly check-in where I will be asking you questions about your health. This will only take a few minutes of your time. Is this a good time? Yes Symptoms What Chronic Disease(s) does the patient have: COPD Do you check your blood pressures at home? No Do you have new or worse shortness of breath with activity? No Do you have new or worsening cough? No Do you have new or worsening wheezing? No Do you need to use your rescue (Albuterol) inhaler or nebulizer more often than normal? No Are you having any other symptoms that your PCP needs to know about? No Symptom Escalation The patient required an escalation for symptom(s)? No Medications Do you have any questions about taking your medication or which medications you should be on? No Do you need any medication refills at this time, including any of the medications you might take only when needed? No Social We would like to make sure you have what you need so that your basic needs are met- including your personal safety, food, housing and medications? Would you like to speak with a social work medical director/head team physician to help give you support for any of these needs? No It can be normal to feel anxious or down during a time like this. Would you like to talk to a mental health professional about how you have been feeling? No Closing Thank you for taking the time to talk with me today. We want to work with you to ensure that we arekeeping your medical condition(s) well-controlled and to keep you healthy and out of the doctor's office or hospital. It s also not too late for me to sign you up for automated weekly questionnaires through [facility]. This is an easy way for us to stay connected each week. Are you interested? No, I understand. We can always sign you up in the future if you change your mind. Just as a reminder, will continue to call you every other week to check in on your health. Our calls should take 10-15 minutes or less. Remember, if you have concerns in between our calls, please call your PCP's office right away. Thank you. Enter next patient outreach date for two weeks on the same day of the week as today in the Track PtOutreach and End outreach. documented in this encounterParkwood Hospital11-07-2022 Miscellaneous Notes* Telephone Encounter - Kayce Mendiola LPN - 07/09/2022 5:25 PM EST Patient notified. Kayce Mendiola LPN * Telephone Encounter - Sweetie Romeo APRN.CNP - 07/09/2022 4:24 PM EST Please call patient and let her know her chest xray does not show any acute findings. Sweetie Romeo APRN.CNP documented in this encounterParkwood Hospital11-07-2022 History of Present illness Narrative* Sweetie Romeo APRN.CNP - 07/09/2022 10:49 AM EST 07/09/2022 Patient presents with: Covid: Diagnosed 07/04/22, continuing to have difficulty breathing SUBJECTIVE: This is a 67 year old that is here today for Above Complaints. Tested positive for COVID-19 on 07/04 with symptoms starting two days prior. Placed on prednisone. She reports she talked to her valet runner , Dr. Gustafson and he put her on more prednisone. Reports having chest tightness/heaviness and feeling like she can not get enough air in. Reports increase in SOB with exertion from her baseline. Using mucinex, cough drops and prescribed inhalers. Using her rescue inhaler 4-5 times a day and rarely at night. Chest tightness/heaviness is not aggravated by activity and is non radiating without accompanying symptoms of diaphoresis, jaw/back pain, or nausea. Also denies fevers, chills, orthopnea, wheezing, palpitations or leg edema. PAST MEDICAL HISTORY Diagnosis Date Abnormal toxicological findings 02/01/2021 Tox screen 01/27/2021 showed no benzos and pos for oxycodone which patient was not on. Patient informed of no further controlled med refills. 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 Chronic anxiety 06/17/2018 Degenerative arthritis of lumbar spine 05/06/2014 Elevated blood sugar 01/27/2021 Emphysema of lung (HCC) 03/18/2015 Essential hypertension, benign 02/21/2015 Ex-smoker 01/27/2021 Started around 89 and quit 2004. Smoked about 1.5 PPD Herpes 01/27/2021 History of 2019 novel coronavirus disease (COVID-19) 01/27/202106/2020 HSV (herpes simplex virus) anogenital infection 02/08/2016 Lung mass 09/07/2011 Lung nodules 05/30/[address] Suleman Gustafson Medicare annual wellness visit, subsequent 01/27/2021 Medicare Part B: NA Last done: Multiple thyroid nodules 01/27/[address] Vigil and f/u was stable. Told no need for further f/u. 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 Takes mid morning. Substance agreement signed and Tox screen done 12/2020. 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 tolterodine ER (DETROL LA) 4 mg 24 hr capsule Take 1 capsule by mouth once daily. (Patient not taking: Reported on 05/28/2022) amLODIPine (NORVASC) 2.5 mg tablet Take 1 tablet by mouth once daily. omeprazole (PRILOSEC) 40 mg capsule Take 1 capsule by mouth once daily. traZODone (DESYREL) 150 mg tablet Take 1 tablet by mouth daily at bedtime. ZINC ORAL Take by mouth as directed. alendronate (FOSAMAX) 70 mg tablet Take 1 tablet by mouth one time a week. Take with a full glass of water, on an empty stomach; do NOT lie down for 30minutes. acyclovir (ZOVIRAX) 400 mg tablet Take 1 tablet by mouth twice daily. folic acid 1 mg tablet Take 1 mg by mouth once daily. rx has B12 in it (Patient not taking: Reported on 03/23/2022 ) SYMBICORT 160-4.5 mcg/actuation inhaler SPIRIVA RESPIMAT 2.5 mcg/actuation inhaler BIOTIN ORAL Take 5,000 mcg by mouth. ascorbic acid/collagen hydr (COLLAGEN PLUS VITAMIN C ORAL) Take 1,000 mg by mouth twice daily. albuterol HFA (PROAIR HFA) 90 mcg/actuation inhaler Inhale 2 Puffs as instructed every 4 hours as needed for Wheezing/Shortness of Breath. Melatonin 5 mg cap 5 mg by mouth taken 2 hours prior to bedtime (Patient taking differently: 10 mg.5 mg by mouth taken 2 hours prior to bedtime) Ascorbic Acid (VITAMIN C) 1,000 mg TbER Take by mouth. Calcium Carb-Cholecalciferol (CALCIUM 600 WITH VITAMIN D3) 600-200 mg-unit ORAL Tab Take one(1) tablet two(2) times daily. No current facility-administered medications for this visit. Medications and allergies reviewed by this provider. SOCIAL HISTORY Social History Tobacco Use Smoking status: Former Packs/day: 1.50 Years: 15.00 Pack years: 22.50 Types: Cigarettes Quit date: 07/31/2005 Years since quittin.9 Smokeless tobacco: Never Vaping Use Vaping Use: Never used Substance Use Topics Alcohol use: Yes Alcohol/week: 25.0 - 37.5 standard drinks Types: 10 - 15 Cans of Beer (12oz) per week Comment: 5-8 beers daily Drug use: No REVIEW OF SYSTEMS All other reviewed and negative other than HPI. OBJECTIVE: BP 128/72 Pulse 91 Temp 37.2 C (98.9 F) Resp 20 LMP 03/23/2007 SpO2 97% . Vital signs reviewed by this provider. APPEARANCE Well appearing, alert, in no acute distress, well-hydrated, well nourished. EYES PERRLA, conjunctiva and sclera normal. HEART RRR with normal S1 and S2, no murmurs, no gallops, no JVD appreciated LUNG clear to auscultation. No wheezes, rhonchi, or rales. Able to speak in full sentences without difficulty. EXTREMITIES Extremities normal, No deformities, No skin discoloration, and No edema ALPHA-1 ANTITRYPSIN DEFICIENCY SCREENING Never done ADVANCE DIRECTIVE DISCUSSION Never done DEPRESSION ASSESSMENT Never done MAMMOGRAM due on 07/25/2022 ANNUAL PCP TEAM CHRONIC DISEASE VISIT due on 07/09/2023 BP CONTROLLED (<130/80) due on 07/09/2023 DIABETES SCREEN due on 09/21/2024 COLORECTAL CANCER SCREENING due on 06/27/2026 LIPID SCREEN due on 09/21/2026 DTAP,TDAP,TD(3 - Td or Tdap) due on 12/18/2028 BONE DENSITY Completed INFLUENZA Completed HEPATITIS C SCREENING Completed SHINGRIX VACCINE Completed PNEUMOCOCCAL: 65+ Completed SPIROMETRY Discontinued COVID-19 VACCINE Discontinued ASSESSMENT/PLAN: 1. Feeling of chest tightness - ICD9: 786.59, ICD10: R07.89 (primary diagnosis) - no red flag symptoms or exam findings - red flag symptoms discussed - Electrocardiogram: An ECG today showed normal sinus rhythm at 82 BPM, HI interval 124 ms, normal QRS, normal ST-T, QT 338 ms - Chest X-ray today. - ALBUTEROL SULFATE 2.5 MG/3 ML (0.083 %) SOLUTION FOR NEBULIZATION - ECG COMPLETE - XR CHEST 2V FRONTAL/LAT - follow-up if symptoms fail to improve, to ER with red flag symptoms 2. Chest heaviness - ICD9: 786.59, ICD10: R07.89 - plan as in #1 - ECG COMPLETE - XR CHEST 2V FRONTAL/LAT 3. Lab test positive for detection of COVID-19 virus - ICD9: 079.89, ICD10: U07.1 - plan as in #1 and #3 4. SOB (shortness of breath) - ICD9: 786.05, ICD10: R06.02 - no red flag symptoms or exam findings - red flag symptoms discussed, verbalizes understanding - ALBUTEROL SULFATE 2.5 MG/3 ML (0.083 %) SOLUTION FOR NEBULIZATION - ECG COMPLETE - XR CHEST 2V FRONTAL/LAT - follow-up if symptoms fail to improve. To ER with red flag symptoms Sweetie Romeo APRN.SENIOR INFORMATICA DEVELOPER Prescription instructions reviewed with patient as applicable. Patient advised if symptoms do not improve or if symptoms worsen sooner, to contact their primary care physician. Potential red flag symptoms discussed with the patient. Reviewed appropriate action plan to take if red flag symptoms occur. Patient agreeable to treatment plan. I spent a total of 30 minutes on the date of the service which included preparing to see the patient, [id number] patient care, completing clinical documentation, obtaining and/or reviewing separately obtained history, performing a medically appropriate examination, counseling and educating the pat ient/family/caregiver, and ordering medications, tests, or procedures. documented in this encounter[facility]11-07-[facility]22 Miscellaneous Notes* Telephone Encounter - Joana Au RN - 07/09/2022 8:22 AM EST Patient calling and states she was seen in [facility] on 07/04/22 for suspected COVID. Patient wastested that day and was positive for covid. Symptoms started on 07/04. She was prescribed prednisone. She reports she feels the same today as 07/04/22, and not worse. Has history of COPD and asthma. Uses inhalers and rescue inhalers. Also states history of ER visit after having covid two years ago. Patient was initially calling to state she was googling information and read that the nebulizer medication Yuperli might help her breathing. After further questioning patient, she reports she has amoderate heaviness to her chest currently, like some bricks are on her chest. Able to speak in full sentences. Denies wheezing or struggling to breath. Continues with dry, tight cough. Denies fever. Has home SpO2 monitor but does not use it much. Last SpO2 at home was this past Saturday and she was 95%. After discussion, this nurse advised ER due to chest heaviness. Patient declining ER and would likeevaluated this morning, if possible. Patient states she knows when she is bad and she does not feel it is that bad right now. No appt available this morning with her PCP team. Appt made with Sweetie Romeo for 10:40am. Please call patient at [phone] if provider has other instructions. Will send this message to Shanita Green and Sweetie Romeo for review. Thank you. documented in this encounterPark[facility]11-03-2022 Miscellaneous Notes* Telephone Encounter - Alice Medina LPN - 07/05/2022 8:50 AM EDT Patient notified and verbalized understanding of instructions given.Alice Medina LPN * Telephone Encounter - Shanna Newton APRN.LUIS FELIPE - 07/05/2022 7:58 AM EDT Patient is positive for COVID. Please instruct to quarantine for the first 5 days of symptoms and then mask for another 5 days. If symptoms are worsening follow-up with primary care. Patient was negative for flu. documented in this encounterPark[facility]11-02-2022 Instructions* Patient Instructions* Rito Sheridan APRN.LUIS FELIPE - 07/04/2022 10:09 AM EDT How to Manage Common Symptoms Associated with COVID for Adults Fever- Fever is a temperature over 100.4 F and can occur when the body is fighting an infection. Tohelp treat a fever: Drink plenty of fluids and stay well hydrated. Eat small amounts of easy to digest food. Rest. Your body needs rest to recover, but getting up and moving around the house frequently is a good idea. You should try to continue doing your normal daily activities (bathing, toileting, grooming, cooking), though you will probably feel tired, and need to rest often. Avoid any heavy activity or exercise, as this will increase your body temperature. Dress in light clothing and stay covered in a light sheet. Keep the room temperature cool. Take a slightly warm (not cold or cool) bath, or apply damp washcloths to the forehead and wrists. Cough- Cough is a common symptom associated with COVID and can be bothersome. To help treat a cough: Stay well hydrated. Try warm water or tea with lemon and/or honey to help soothe the cough. Use a humidifier to add moisture to the air. Try a product with menthol, like a cough drop or a rub for your chest such as Vicks, which can helpreduce cough. Try cough drops. Avoid smoking and other strong odors or perfumes. Try breathing exercises to keep your lungs open and clear. Take a big deep breath through your noseand hold for 5 seconds before slowly releasing. Repeat frequently, while you are awake. Congestion- Runny nose or nasal congestion can occur with COVID. Treatment can help relieve symptoms: Try OTC nasal saline spray, or nasal saline rinse to relieve mucus congestion. Nasal strips can help keep nasal passages open, to increase airflow. Elevating your head with an extra pillow in bed can help reduce congestion. Using a humidifier can increase moisture in the air, and make breathing easier. Sore Throat- Another common symptom with COVID, can be managed at home by: Stay well hydrated. Gargle with salt water - mix teaspoon salt with 1 cup of warm water and gargle. This helps to loosen mucus in the back of the throat and may reduce discomfort. Try ice chips, popsicles or lozenges to soothe the throat. Nausea/Vomiting/Diarrhea- These are common symptoms, and staying hydrated is most important. If you are nauseous or vomiting, start with small sips of water every 10-15 minutes and increase astolerated. You can try sucking an ice cube too. If tolerating, you can try pedialyte or Gatorade, or flat sprite or heber-anny. Start slowly and increase as you are able to. Instead of meals, try smaller, more frequent snacks. Try eating bland foods like crackers, toast, rice, and applesauce. Avoid spicy, greasy or fried foods and dairy containing foods. Even if you aren't feeling hungry due to lack of smell or taste, it is important to try to take in some food when you are able. After drinking and eating, rest in an upright position for up to two hours as needed to help decrease nauseous feelings. Try closing your eyes, avoid moving and watching TV. Avoid strong odors that can make you feel more nauseated. When to seek emergency medical attention Look for emergency warning signs for COVID-19. If having any of these symptoms, seek emergency medical care immediately: Trouble breathing Persistent pain or pressure in the chest New confusion Inability to wake or stay awake Bluish lips or face *This list is not all possible symptoms. Please call your medical provider for any other symptoms that are severe or concerning to you. documented in this encounterParkwood [facility]11-02-2022 History of Present illness Narrative* Rito Sheridan APRN.CNP - 07/04/2022 9:58 AM EDT Subjective HPI Nontoxic-appearing female presents urgent care Chief complaint cough chest congestion sore throat fatigue. Duration symptoms 2 days. Associated symptoms listed above. Patient states feels like she has a chest cold. History of COPD feels like her COPD has flared up. Has increased use of rescue inhaler. Denies any known sick contacts. Recently did start working out at the gym. States most bothersome symptom is chest congestion. Denies any fever body aches chills productive cough chest pain hemoptysis pleuritic pain nausea vomiting abdominal pain or change in bowel or bladder habits. Denies history of active cancer recent surgery or recent long travels history of PE DVT. Past medical history pr escription medication use allergies reviewed. .Patient presents with: Cough: Chest congestion, SOB, sinus drainage x2 days PAST MEDICAL HISTORY Diagnosis Date Abnormal toxicological findings 02/01/2021 Tox screen 01/27/2021 showed no benzos and pos for oxycodone which patient was not on. Patient informed of no further controlled med refills. 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 Chronic anxiety 06/17/2018 Degenerative arthritis of lumbar spine 05/06/2014 Elevated blood sugar 01/27/2021 Emphysema of lung (HCC) 03/18/2015 Essential hypertension, benign 02/21/2015 Ex-smoker 01/27/2021 Started around 89 and quit 2004. Smoked about 1.5 PPD Herpes 01/27/2021 History of 2019 novel coronavirus disease (COVID-19) 01/27/202106/2020 HSV (herpes simplex virus) anogenital infection 02/08/2016 Lung mass 09/07/2011 Lung nodules 05/30/[address] Suleman Gustafson Medicare annual wellness visit, subsequent 01/27/2021 Medicare Part B: NA Last done: Multiple thyroid nodules 01/27/[address] Vigil and f/u was stable. Told no need for further f/u. 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 Takes mid morning. Substance agreement signed and Tox screen done 12/2020. 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 COLONOSCOPY FLX DX W/COLLJ SPEC WHEN PFRMD 08/19/2006 Repeat in COLONOSCOPY FLX DX W/COLLJ SPEC WHEN PFRMD 06/27/2016 Colonoscopy CRANIOPLASTY SKULL DEF/REPAIR/ BRAIN 09/14/2014 See scanned documents - status post ESOPHAGOGASTRODUODENOSCOPY TRANSORAL DIAGNOSTIC 06/27/2016 EGD ESOPHAGOGASTRODUODENOSCOPY TRANSORAL DIAGNOSTIC 06/30/2018 EGD I&D ABSCESS CMPLX/MULT 07/2013 Epidural abscess- MSSA LIG/TRNSXJ FLP TUBE ABDL/VAG APPR UNI/BI Tubal ligation PAST SURGICAL HISTORY OF spinal surgery PAST SURGICAL HISTORY OF retinal detachment OD, (2 tears) PAST SURGICAL HISTORY OF 2012 back surgery STRESS TEST NUCLEAR 05/23/2021 negative ALLERGIES Fish, Horse Serum [Other], Lisinopril, and Seafood [Other] MEDICATIONS tolterodine ER (DETROL LA) 4 mg 24 hr capsule Take 1 capsule by mouth once daily. (Patient not taking: Reported on 05/28/2022) amLODIPine (NORVASC) 2.5 mg tablet Take 1 tablet by mouth once daily. omeprazole (PRILOSEC) 40 mg capsule Take 1 capsule by mouth once daily. traZODone (DESYREL) 150 mg tablet Take 1 tablet by mouth daily at bedtime. ZINC ORAL Take by mouth as directed. alendronate (FOSAMAX) 70 mg tablet Take 1 tablet by mouth one time a week. Take with a full glass of water, on an empty stomach; do NOT lie down for 30minutes. acyclovir (ZOVIRAX) 400 mg tablet Take 1 tablet by mouth twice daily. folic acid 1 mg tablet Take 1 mg by mouth once daily. rx has B12 in it (Patient not taking: Reported on 03/23/2022 ) SYMBICORT 160-4.5 mcg/actuation inhaler SPIRIVA RESPIMAT 2.5 mcg/actuation inhaler BIOTIN ORAL Take 5,000 mcg by mouth. ascorbic acid/collagen hydr (COLLAGEN PLUS VITAMIN C ORAL) Take 1,000 mg by mouth twice daily. albuterol HFA (PROAIR HFA) 90 mcg/actuation inhaler Inhale 2 Puffs as instructed every 4 hours as needed for Wheezing/Shortness of Breath. Melatonin 5 mg cap 5 mg by mouth taken 2 hours prior to bedtime (Patient taking differently: 10 mg.5 mg by mouth taken 2 hours prior to bedtime) Ascorbic Acid (VITAMIN C) 1,000 mg TbER Take by mouth. Calcium Carb-Cholecalciferol (CALCIUM 600 WITH VITAMIN D3) 600-200 mg-unit ORAL Tab Take one(1) tablet two(2) times daily. FAMILY HISTORY Problem Relation Age of Onset Hypertension Mother other (cerebral aneurysm) Mother Colon Polyps Father Hypertension Father COPD Father Cancer Father Bladder Cancer other (Past medical history) Father abdominal aneurysm/bladder cancer other (aortic aneurysm) Father Social History Tobacco Use Smoking status: Former Packs/day: 1.50 Years: 15.00 Pack years: 22.50 Types: Cigarettes Quit date: 07/31/2005 Years since quittin.9 Smokeless tobacco: Never Vaping Use Vaping Use: Never used Substance Use Topics Alcohol use: Yes Alcohol/week: 25.0 - 37.5 standard drinks Types: 10 - 15 Cans of Beer (12oz) per week Comment: 5-8 beers daily Drug use: No BP 132/86 Pulse 95 Temp 37.3 C (99.2 F) Resp 20 Wt 42.3 kg (93 lb 3.2 oz) LMP 03/23/2007 SpO2 98% BMI 20.11 kg/m Review of Systems Constitutional: Negative for chills, fever and malaise/fatigue. HENT: Positive for congestion and sore throat. Negative for ear discharge, ear pain and sinus pain. Eyes: Negative for blurred vision, pain, discharge and redness. Respiratory: Positive for cough and shortness of breath. Negative for hemoptysis, sputum production, wheezing and stridor. Cardiovascular: Negative for chest pain. Gastrointestinal: Negative for abdominal pain, diarrhea, nausea and vomiting. Musculoskeletal: Positive for myalgias. Skin: Negative for itching and rash. Neurological: Positive for headaches. Negative for dizziness. Objective Physical Exam Constitutional: General: She is not in acute distress. Appearance: She is not diaphoretic. HENT: Head: Normocephalic. Nose: Congestion present. Mouth/Throat: Mouth: Mucous membranes are moist. Pharynx: Oropharynx is clear. No oropharyngeal exudate or posterior oropharyngeal erythema. Eyes: Conjunctiva/sclera: Conjunctivae normal. Pupils: Pupils are equal, round, and reactive to light. Cardiovascular: Rate and Rhythm: Normal rate and regular rhythm. Heart sounds: Normal heart sounds. Pulmonary: Effort: Pulmonary effort is normal. No tachypnea, accessory muscle usage or respiratory distress. Breath sounds: No stridor. Wheezing present. No rhonchi or rales. Abdominal: General: There is no distension. Palpations: Abdomen is soft. Tenderness: There is no abdominal tenderness. There is no guarding or rebound. Musculoskeletal: Cervical back: Normal range of motion and neck supple. No rigidity or tenderness. Lymphadenopathy: Cervical: No cervical adenopathy. Skin: General: Skin is warm and dry. Neurological: Mental Status: She is alert and oriented to person, place, and time. ASSESSMENT/PLAN: 1. Suspected COVID-19 virus infection - ICD9: V01.79, ICD10: Z20.822 - COVID WITH FLUA+B, ROUTINE Patient diagnosed with suspected COVID-19. Will be placed on prednisone burst due to wheezing notedon auscultation. No productive cough. Will not use antibiotics at this time. Red flags for prompt reevaluation discussed. Patient was educated on supportive therapies. Patient will follow up with primary care provider as needed. Patient was instructed to immediately proceed to emergency room for any new, worsening, or symptoms lasting longer than anticipated. The patient's clinical presentation is otherwise unremarkable at this time. Based on exam and clinical finding, the patient is stable fordischarge. Plan of care was discussed with patient. Patient verbalizes understanding and agrees to plan of care. This note was generated using [employer] software. It may contain errors in wording, punctuation, or spelling. Rito Sheridan APRN.SENIOR INFORMATICA DEVELOPER documented in this encounterParkwood Hospital10-31-2022 History of Present illness Narrative* Kami Hunter RN - 07/02/2022 1:33 PM EDT [facility] TELEPHONIC OUTREACH Provider Action/FYI: Contact made with patient: No - Left message Mckenzietan my name is Kami Hunter RN your Lace Machine Operator [facility] the [facility] I am calling today for your bi-weekly check in. I am sorry I missed your call. I will reach out to you again tomorrow. (if the third call I will reach out to you again next week) Enter next patient outreach date for the following business day using the Track Pt Outreach. End outreach. documented in this encounterParkwood Hospital10-11-2022 History of Present illness Narrative* Kami Hunter RN - 06/12/2022 1:36 PM EDT [facility] TELEPHONIC OUTREACH Provider Action/FYI: Contact made with patient: No - Left message Radha my name is Kami Hunter RN your Lace Machine Operator [facility] the [facility] I am calling today for your bi-weekly check in. I am sorry I missed your call. I will reach out to you again in three weeks. (if the third call I will reach out to you again next week) Enter next patient outreach date for the following business day using the Track Pt Outreach. End outreach. documented in this encounterParkwood Hospital09-26-2022 Instructions* Patient Instructions* Shanita Green PA-C - 05/28/2022 10:38 AM EDT I would like you to see Dr. Shore for the overactive bladder. Try spliting the dose of trazodone. Taking one tablet at bedtime and then a 1/2 tablet when you wake in middle of the night. Follow up for routine check up in 3-4 months. documented in this encounterParkwood Hospital09-26-[facility]22 History of Present illness Narrative* Shanita Green PA-C - 05/28/2022 10:28 AM EDT Chief Complaint Patient presents with: Recheck HPI Diony Ramirez is a 67 year old female who presents here today for recheck. Patient was seen a month ago due to insomnia. We increased her trazodone to 150mg which has not helped. However patient still is waking up to urinate and that is when she struggles with getting back to sleep. She does not struggle with falling asleep initially. She had side effects from the oxybutynin so she d/c'd that and never picked up detrol due to fear of similar SEs. Past medical history, appointments, medications, allergies reviewed. Previous Medical History PAST MEDICAL HISTORY Diagnosis Date Abnormal toxicological findings 02/01/2021 Tox screen 01/27/2021 showed no benzos and pos for oxycodone which patient was not on. Patient informed of no further controlled med refills. 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 Chronic anxiety 06/17/2018 Degenerative arthritis of lumbar spine 05/06/2014 Elevated blood sugar 01/27/2021 Emphysema of lung (HCC) 03/18/2015 Essential hypertension, benign 02/21/2015 Ex-smoker 01/27/2021 Started around 89 and quit 2004. Smoked about 1.5 PPD Herpes 01/27/2021 History of 2019 novel coronavirus disease (COVID-19) 01/27/202106/2020 HSV (herpes simplex virus) anogenital infection 02/08/2016 Lung mass 09/07/2011 Lung nodules 05/30/[address] Suleman Gustafson Medicare annual wellness visit, subsequent 01/27/2021 Medicare Part B: NA Last done: Multiple thyroid nodules 01/27/[address] Vigil and f/u was stable. Told no need for further f/u. 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 Takes mid morning. Substance agreement signed and Tox screen done 12/2020. 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 COLONOSCOPY FLX DX W/COLLJ SPEC WHEN PFRMD 08/19/2006 Repeat in COLONOSCOPY FLX DX W/COLLJ SPEC WHEN PFRMD 06/27/2016 Colonoscopy CRANIOPLASTY SKULL DEF/REPAIR/ BRAIN 09/14/2014 See scanned documents - status post ESOPHAGOGASTRODUODENOSCOPY TRANSORAL DIAGNOSTIC 06/27/2016 EGD ESOPHAGOGASTRODUODENOSCOPY TRANSORAL DIAGNOSTIC 06/30/2018 EGD I&D ABSCESS CMPLX/MULT 07/2013 Epidural abscess- MSSA LIG/TRNSXJ FLP TUBE ABDL/VAG APPR UNI/BI Tubal ligation PAST SURGICAL HISTORY OF spinal surgery PAST SURGICAL HISTORY OF 2/307 retinal detachment OD, (2 tears) PAST SURGICAL HISTORY OF 2012 back surgery STRESS TEST NUCLEAR 05/23/2021 negative Family History FAMILY HISTORY Problem Relation Age of Onset Hypertension Mother other (cerebral aneurysm) Mother Colon Polyps Father Hypertension Father COPD Father Cancer Father Bladder Cancer other (Past medical history) Father abdominal aneurysm/bladder cancer other (aortic aneurysm) Father Patient Allergies ALLERGIES Allergen Reactions Fish Unknown Horse Serum [Other] Unknown Lisinopril Cough Seafood [Other] Unknown Current Medications Current Outpatient Medications on File Prior to Visit Medication Sig amLODIPine (NORVASC) 2.5 mg tablet Take 1 tablet by mouth once daily. omeprazole (PRILOSEC) 40 mg capsule Take 1 capsule by mouth once daily. ZINC ORAL Take by mouth as directed. alendronate (FOSAMAX) 70 mg tablet Take 1 tablet by mouth one time a week. Take with a full glass of water, on an empty stomach; do NOT lie down for 30minutes. acyclovir (ZOVIRAX) 400 mg tablet Take 1 tablet by mouth twice daily. SYMBICORT 160-4.5 mcg/actuation inhaler SPIRIVA RESPIMAT 2.5 mcg/actuation inhaler BIOTIN ORAL Take 5,000 mcg by mouth. ascorbic acid/collagen hydr (COLLAGEN PLUS VITAMIN C ORAL) Take 1,000 mg by mouth twice daily. albuterol HFA (PROAIR HFA) 90 mcg/actuation inhaler Inhale 2 Puffs as instructed every 4 hours as needed for Wheezing/Shortness of Breath. Melatonin 5 mg cap 5 mg by mouth taken 2 hours prior to bedtime (Patient taking differently: 10 mg.5 mg by mouth taken 2 hours prior to bedtime) Ascorbic Acid (VITAMIN C) 1,000 mg TbER Take by mouth. Calcium Carb-Cholecalciferol (CALCIUM 600 WITH VITAMIN D3) 600-200 mg-unit ORAL Tab Take one(1) tablet two(2) times daily. tolterodine ER (DETROL LA) 4 mg 24 hr capsule Take 1 capsule by mouth once daily. (Patient not taking: Reported on 05/28/2022) traZODone (DESYREL) 150 mg tablet Take 1 tablet by mouth daily at bedtime. folic acid 1 mg tablet Take 1 mg by mouth once daily. rx has B12 in it (Patient not taking: Reported on 03/23/2022 ) No current facility-administered medications on file prior to visit. Social History Social History Tobacco Use Smoking status: Former Packs/day: 1.50 Years: 15.00 Pack years: 22.50 Types: Cigarettes Quit date: 07/31/2005 Years since quittin.8 Smokeless tobacco: Never Vaping Use Vaping Use: Never used Substance Use Topics Alcohol use: Yes Alcohol/week: 25.0 - 37.5 standard drinks Types: 10 - 15 Cans of Beer (12oz) per week Comment: 5-8 beers daily Drug use: No Review of Symptoms REVIEW OF SYSTEMS See hpi EXAM: BP 94/68 (BP Site: Left Arm, BP Position: Sitting, BP Cuff Size: Small Adult) Pulse 76 Temp 36.7 C (98.1 F) Resp 16 Wt 41.7 kg (92 lb) LMP 03/23/2007 BMI 19.85 kg/m General Appearance: Well appearing, alert, in no acute distress, well-hydrated, well nourished.. Health Maintenance List ALPHA-1 ANTITRYPSIN DEFICIENCY SCREENING Never done ADVANCE DIRECTIVE DISCUSSION Never done INFLUENZA(1) due on 05/03/2022 MAMMOGRAM due on 07/25/2022 ANNUAL PCP TEAM CHRONIC DISEASE VISIT due on 04/30/2023 BP CONTROLLED (<130/80) due on 04/30/2023 DIABETES SCREEN due on 09/21/2024 COLORECTAL CANCER SCREENING due on 06/27/2026 LIPID SCREEN due on 09/21/2026 DTAP,TDAP,TD(3 - Td or Tdap) due on 12/18/2028 BONE DENSITY Completed HEPATITIS C SCREENING Completed SHINGRIX VACCINE Completed PNEUMOCOCCAL: 65+ Completed SPIROMETRY Discontinued DEPRESSION SCREENING Discontinued COVID-19 VACCINE Discontinued Data reviewed ASSESSMENT/PLAN: 1. Psychophysiological insomnia - ICD9: 307.42, ICD10: F51.04 (primary diagnosis) We will see if patient does better with split dosing. She is to take 1/2 tablet at bedtime and 1/2 tablet in middle of night when she wakes up to urinate. She is to let us know one way or the other. 2. Overactive bladder - ICD9: 596.51, ICD10: N32.81 Patient hesitant to try other meds due to potential SEs. Will consult uro. - CONSULT TO UROLOGY Shanita Green PA-C documented [facility] History of Present illness Narrative* Kami Hunter RN - 05/08/2022 3:32 PM EDT INSIGHT CDM TELEPHONIC OUTREACH Provider Action/FYI: Patient reports she is doing good, concerned that newly prescribed medication, Detrol LA, will cause same side effects as Ditropan XL. Advised patient contact pharmacy and discuss with pharmacist side effects along with cost. Patient agreeable. had no further questions, concerns, needs at this time. Contact made with patient: Yes Patient identified by name and . Discussed care with patient It s nice talking to you again. As a reminder, this is our bi-weekly check-in where I will be asking you questions about your health. This will only take a few minutes of your time. Is this a good time? Yes Symptoms What Chronic Disease(s) does the patient have: COPD Do you check your blood pressures at home? No Do you have new or worse shortness of breath with activity? No Do you have new or worsening cough? No Do you have new or worsening wheezing? No Do you need to use your rescue (Albuterol) inhaler or nebulizer more often than normal? No Are you having any other symptoms that your PCP needs to know about? No Symptom Escalation The patient required an escalation for symptom(s)? No Medications Do you have any questions about taking your medication or which medications you should be on? No Do you need any medication refills at this time, including any of the medications you might take only when needed? No Social We would like to make sure you have what you need so that your basic needs are met- including your personal safety, food, housing and medications? Would you like to speak with a social work medical director/head team physician to help give you support for any of these needs? No It can be normal to feel anxious or down during a time like this. Would you like to talk to a mental health professional about how you have been feeling? No Closing Thank you for taking the time to talk with me today. We want to work with you to ensure that we arekeeping your medical condition(s) well-controlled and to keep you healthy and out of the doctor's office or hospital. It s also not too late for me to sign you up for automated weekly questionnaires through [facility]. This is an easy way for us to stay connected each week. Are you interested? No, I understand. We can always sign you up in the future if you change your mind. Just as a reminder, will continue to call you every other week to check in on your health. Our calls should take 10-15 minutes or less. Remember, if you have concerns in between our calls, please call your PCP's office right away. Thank you. Enter next patient outreach date for two weeks on the same day of the week as today in the Track PtOutreach and End outreach. documented in this encounterPark[facility]09-[facility]22 Miscellaneous Notes* Telephone Encounter - Melita Le LPN - 05/08/2022 2:27 PM EDT Pt notified of Shanita's message and instructions. Pt verbalizes understanding. Melita Le LPN * Telephone Encounter - Shanita Green PA-C - 05/08/2022 1:48 PM EDT We could see if insurance will cover detrol LA. I will send in. Let us know if any issues. * Telephone Encounter - Albania Gill RN - 05/08/2022 12:24 PM EDT Patient calls and states that she was taking oxybutynin for 4-5 days. Patient then started to read about the side effects of the medication. Patient concerned that medication can cause blurred visionand glaucoma. Patient states that she only has one good eye and she doesn't want to ruin it. Patient has since quit taking medication. Patient asking if there is any other medication that she can take that does not have the side effects? Please review and advise, Albania Gill RN documented in this encounterPark[facility]08-30-[facility]22 Miscellaneous Notes* Telephone Encounter - Shanita Green PA-C - 05/01/2022 8:56 AM EDT The following approved medication requests have been transmitted electronically. Requested Prescriptions Signed Prescriptions Disp Refills amLODIPine (NORVASC) 2.5 mg tablet 90 tablet 1 Sig: Take 1 tablet by mouth once daily. Authorizing Provider: SHANITA GREEN PA-C * Telephone Encounter - Melita Le LPN - 05/01/2022 7:52 AM EDT RX INSTRUCTIONS: Patient requesting a call when RX is approved and sent to the pharmacy. Please call patient at: [phone] Tarsha Kirkland Last refill 09/20/21 Qty: 90 with 1 refill CHLOE 04/30/22 NOV 05/28/22 Melita Le LPN * Telephone Encounter - Tarsha Kirkland - 04/30/2022 4:59 PM EDT Patient has been identified by name and date of : Yes Requested Prescriptions Pending Prescriptions Disp Refills amLODIPine (NORVASC) 2.5 mg tablet 90 tablet 3 Sig: Take 1 tablet by mouth once daily. RX INSTRUCTIONS: Patient requesting a call when RX is approved and sent to the pharmacy. Please call patient at: [phone] Tarsha Kirkland documented in this encounterPark[facility]08-23-[facility]22 History of Present illness Narrative* Kami Hunter RN - 04/24/2022 2:41 PM EDT INSIGHT CDM TELEPHONIC OUTREACH Provider Action/FYI: Pt reports she is doing good, no questions, concerns, needs at this time. Contact made with patient: Yes Patient identified by name and . Discussed care with patient It s nice talking to you again. As a reminder, this is our bi-weekly check-in where I will be asking you questions about your health. This will only take a few minutes of your time. Is this a good time? Yes Symptoms What Chronic Disease(s) does the patient have: COPD Do you check your blood pressures at home? No Do you have new or worse shortness of breath with activity? No Do you have new or worsening cough? No Do you have new or worsening wheezing? No Do you need to use your rescue (Albuterol) inhaler or nebulizer more often than normal? No Are you having any other symptoms that your PCP needs to know about? No Symptom Escalation The patient required an escalation for symptom(s)? No Medications Do you have any questions about taking your medication or which medications you should be on? No Do you need any medication refills at this time, including any of the medications you might take only when needed? No Social We would like to make sure you have what you need so that your basic needs are met- including your personal safety, food, housing and medications? Would you like to speak with a social work medical director/head team physician to help give you support for any of these needs? No It can be normal to feel anxious or down during a time like this. Would you like to talk to a mental health professional about how you have been feeling? No Closing Thank you for taking the time to talk with me today. We want to work with you to ensure that we arekeeping your medical condition(s) well-controlled and to keep you healthy and out of the doctor's office or hospital. It s also not too late for me to sign you up for automated weekly questionnaires through [facility]. This is an easy way for us to stay connected each week. Are you interested? No, I understand. We can always sign you up in the future if you change your mind. Just as a reminder, will continue to call you every other week to check in on your health. Our calls should take 10-15 minutes or less. Remember, if you have concerns in between our calls, please call your PCP's office right away. Thank you. Enter next patient outreach date for two weeks on the same day of the week as today in the Track PtOutreach and End outreach. documented in this encounterPark[facility]08-22-2022 History of Present illness Narrative* Kami Hunter RN - 04/23/2022 3:36 PM EDT INSIGHT CDM TELEPHONIC OUTREACH Provider Action/FYI: Contact made with patient: No - Left message Radha my name is Kami Hunter RN your Lace Machine Operator from the [facility] I am calling today for your bi-weekly check in. I am sorry I missed your call. I will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 ORAL) Take 1,000 mg by mouth twice daily. albuterol HFA (PROAIR HFA) 90 mcg/actuation inhaler Inhale 2 Puffs as instructed every 4 hours as needed for Wheezing/Shortness of Breath. Melatonin 5 mg cap 5 mg by mouth taken 2 hours prior to bedtime Ascorbic Acid (VITAMIN C) 1,000 mg TbER Take by mouth. Calcium Carb-Cholecalciferol (CALCIUM 600 WITH VITAMIN D3) 600-200 mg-unit ORAL Tab Take one(1) tablet two(2) times daily. ALLERGIES: ALLERGIES Allergen Reactions Fish Unknown Horse Serum [Other] Unknown Lisinopril Cough Seafood [Other] Unknown VITALS: BP 122/60 Pulse 88 Temp 36.8 C (98.3 F) Resp 16 Wt 43.5 kg (96 lb) LMP 03/23/2007 SpO2 96% BMI 20.71 kg/m PHYSICAL EXAM: GEN: pleasant, no acute distress, alert HEART: regular rate, regular rhythm, no murmurs LUNGS: clear to auscultation, no wheezes or crackles, no increased WOB EXT: no clubbing, no cyanosis, no edema BACK: Normal curvature of spine. No midline tenderness. No paraspinal tenderness. Discomfort with palpation of the coccyx. Straight leg test negative. Deep tendon reflexes 2+/4 at patellas. Normal lower extremity strength. ASSESSMENT/PLAN: 1. Coccyx pain - ICD9: 724.79, ICD10: M53.3 - XR SACRUM/COCCYX 3V AP/LAT - no acute fracture. Supportive care with OTC analgesia and donut cushion. Bernard Elliott MD documented in this encounter[facility]07-[facility] History of Present illness Narrative* Kami Hunter RN - 03/06/2022 12:31 PM EDT INSIGHT CDM TELEPHONIC OUTREACH Provider Action/FYI: Pt reports she is doing good, no questions, concerns, needs at this time. Contact made with patient: Yes Patient identified by name and . Discussed care with patient It s nice talking to you again. As a reminder, this is our bi-weekly check-in where I will be asking you questions about your health. This will only take a few minutes of your time. Is this a good time? Yes Symptoms What Chronic Disease(s) does the patient have: COPD Do you check your blood pressures at home? No Do you have new or worse shortness of breath with activity? No Do you have new or worsening cough? No Do you have new or worsening wheezing? No Do you need to use your rescue (Albuterol) inhaler or nebulizer more often than normal? No Are you having any other symptoms that your PCP needs to know about? No Symptom Escalation The patient required an escalation for symptom(s)? No Medications Do you have any questions about taking your medication or which medications you should be on? No Do you need any medication refills at this time, including any of the medications you might take only when needed? No Social We would like to make sure you have what you need so that your basic needs are met- including your personal safety, food, housing and medications? Would you like to speak with a social work medical director/head team physician to help give you support for any of these needs? No It can be normal to feel anxious or down during a time like this. Would you like to talk to a mental health professional about how you have been feeling? No Closing Thank you for taking the time to talk with me today. We want to work with you to ensure that we arekeeping your medical condition(s) well-controlled and to keep you healthy and out of the doctor's office or hospital. It s also not too late for me to sign you up for automated weekly questionnaires through [facility]. This is an easy way for us to stay connected each week. Are you interested? No, I understand. We can always sign you up in the future if you change your mind. Just as a reminder, will continue to call you every other week to check in on your health. Our calls should take 10-15 minutes or less. Remember, if you have concerns in between our calls, please call your PCP's office right away. Thank you. Enter next patient outreach date for two weeks on the same day of the week as today in the Track PtOutreach and End outreach. documented in this encounter[facility] History of Present illness Narrative* Kami Hunter RN - 03/02/2022 1:22 PM EDT INSIGHT CDM TELEPHONIC OUTREACH Provider Action/FYI: Contact made with patient: No - Left message Heltan my name is Kami Hunter RN your Lace Machine Operator [facility] I am calling today for your bi-weekly check in. I am sorry I missed your call. I will reach out to you again tomorrow. (if the third call I will reach out to you again next week) Enter next patient outreach date for the following business day using the Track Pt Outreach. End outreach. documented in this encounterPark[facility]06-[facility] History of Present illness Narrative* Kami Hunter RN - 02/15/2022 3:18 PM EDT INSIGHT CDM TELEPHONIC OUTREACH Provider Action/FYI: Contact made with patient: No - Unable to leave message Entered next patient outreach date for the following business day, if third call please enter next outreach date for one week in the Track Pt. Outreach - End Outreach documented in this encounterPark[facility]06-[facility]22 History of Present illness Narrative* Good Silva RN - 02/01/2022 4:17 PM EDT Patient returned call from RN, and given provider's message below with verbalized understanding. * Kami Hunter RN - 02/01/2022 3:59 PM EDT PRIMARY CARE COORDINATION QUICK NOTE Provider Action/FYI Left detailed message on patient voicemail to return call to this nurse for message from pcp, number provided. Patient identified by name and date . Kami Hunter RN Impress Associate * Rito Camp MD - 02/01/2022 3:42 PM EDT Let patient know I can refer her to sleep medicine if she would like but she needs t understand they may tell her there are two main things needing addressed to help improve sleep hygiene. 1) is management of her anxiety and 2) is to stop drinking every day. The beer or any other excessive amount of daily alcohol will affect sleep quality and until that is stopped medications to assist will not be beneficial. * Kami Hunter, ELDER - 02/01/2022 2:01 PM EDT MELISSA BORGES TELEPHONIC OUTREACH Provider Action/FYI: Pt reports she is doing good, states for years she has experienced insomnia, administers Trazodone 100 mg and Melatonin 10 mg nightly, but is still only able to get maybe 3 hours every night. Pt states she does not nap during the day, never has, gets up and goes to bed around the same time every day. Pt states her mind is racing with so many thoughts, along with her leg pain from neuropathy. Pt inquiring if pcp would be able to prescribe something different for sleep, or maybe see sleep medicine. Pt is aware she may need to schedule office visit to discuss further. Please advise. Thank you Contact made with patient: Yes Patient identified by name and . Discussed care with patient It s nice talking to you again. As a reminder, this is our bi-weekly check-in where I will be asking you questions about your health. This will only take a few minutes of your time. Is this a good time? Yes Symptoms What Chronic Disease(s) does the patient have: COPD Do you check your blood pressures at home? No Do you have new or worse shortness of breath with activity? No Do you have new or worsening cough? No Do you have new or worsening wheezing? No Do you need to use your rescue (Albuterol) inhaler or nebulizer more often than normal? No Are you having any other symptoms that your PCP needs to know about? No Symptom Escalation The patient required an escalation for symptom(s)? No Medications Do you have any questions about taking your medication or which medications you should be on? No Do you need any medication refills at this time, including any of the medications you might take only when needed? No Social We would like to make sure you have what you need so that your basic needs are met- including your personal safety, food, housing and medications? Would you like to speak with a social work medical director/head team physician to help give you support for any of these needs? No It can be normal to feel anxious or down during a time like this. Would you like to talk to a mental health professional about how you have been feeling? No Closing Thank you for taking the time to talk with me today. We want to work with you to ensure that we arekeeping your medical condition(s) well-controlled and to keep you healthy and out of the doctor's office or hospital. It s also not too late for me to sign you up for automated weekly questionnaires through [facility]. This is an easy way for us to stay connected each week. Are you interested? No, I understand. We can always sign you up in the future if you change your mind. Just as a reminder, will continue to call you every other week to check in on your health. Our calls should take 10-15 minutes or less. Remember, if you have concerns in between our calls, please call your PCP's office right away. Thank you. Enter next patient outreach date for two weeks on the same day of the week as today in the Track PtOutreach and End outreach. documented in this encounterPark[facility]05-[facility] History of Present illness Narrative* Kaim Hunter RN - 01/15/2022 1:23 PM EDT INSIGHT CDM TELEPHONIC OUTREACH Provider Action/FYI: Pt seen at Urgent Care 01/10/22, prescribed Prednisone and advised to start otc Claritin or Zyrtec daily. Pt states she does feel a little better, states chest does not feel as tight and heavy. Pt aware to schedule follow up if symptoms start to worsen. Pt had no further questions, concerns, needs at this time. Contact made with patient: Yes Patient identified by name and . Discussed care with patient It s nice talking to you again. As a reminder, this is our bi-weekly check-in where I will be asking you questions about your health. This will only take a few minutes of your time. Is this a good time? Yes Symptoms What Chronic Disease(s) does the patient have: COPD Do you check your blood pressures at home? No Do you have new or worse shortness of breath with activity? No Do you have new or worsening cough? No Do you have new or worsening wheezing? No Do you need to use your rescue (Albuterol) inhaler or nebulizer more often than normal? No Are you having any other symptoms that your PCP needs to know about? No Symptom Escalation The patient required an escalation for symptom(s)? No Medications Do you have any questions about taking your medication or which medications you should be on? No Do you need any medication refills at this time, including any of the medications you might take only when needed? No Social We would like to make sure you have what you need so that your basic needs are met- including your personal safety, food, housing and medications? Would you like to speak with a social work medical director/head team physician to help give you support for any of these needs? No It can be normal to feel anxious or down during a time like this. Would you like to talk to a mental health professional about how you have been feeling? No Closing Thank you for taking the time to talk with me today. We want to work with you to ensure that we arekeeping your medical condition(s) well-controlled and to keep you healthy and out of the doctor's office or hospital. It s also not too late for me to sign you up for automated weekly questionnaires through [facility]. This is an easy way for us to stay connected each week. Are you interested? No, I understand. We can always sign you up in the future if you change your mind. Just as a reminder, will continue to call you every other week to check in on your health. Our calls should take 10-15 minutes or less. Remember, if you have concerns in between our calls, please call your PCP's office right away. Thank you. Enter next patient outreach date for two weeks on the same day of the week as today in the Track PtOutreach and End outreach. documented [facility] Miscellaneous Notes* Telephone Encounter - Rito Camp MD - 01/10/2022 11:13 AM EDT Noted and agree. * Telephone Encounter - Kasey Rosita LOCKWOOD - 01/10/2022 9:13 AM EDT Patient calling she started with head cold symptoms, now coughing, congestion. She has taken mucinex, black elderberry otc. She said her chest is feeling tight she has asthma and COPD. Advised to go to ill urgent care for evaluation. documented in this encounter[facility]05-[facility] History of Present illness Narrative* Shanna Newton APRN.SENIOR INFORMATICA DEVELOPER - 01/10/2022 9:58 AM EDT CC: Patient presents with: Cough: cough, SOB and congestion x 3 days HPI: Diony Ramirez is a 66 year old female who presents to the office with complaint of chest congestion and cough, nonproductive for a few days. Symptoms are worsening Associated symptoms includes cough. Denies body aches, fever, nausea, vomiting and diarrhea. Treatments tried include nothing so far. with no relief of symptoms. Sick contacts: unknown. History of asthma, frequent episodes of bronchitis, chronic bronchitis, bronchiectasis or COPD: No Smoker: No Seasonal/environmental allergies: No The ROS is otherwise negative. The patient's pmh, medications, allergies, and past visits are reviewed. PHYSICAL EXAM: BP 132/80 Pulse 84 Temp 36.9 C (98.5 F) (Tympanic) Resp 18 Wt 43.2 kg (95 lb 3.2 oz) LMP 03/23/2007 SpO2 97% BMI 20.54 kg/m General appearance: alert, cooperative, pleasant, in no acute distress Head: Normocephalic Eyes: EOM's intact, conjunctiva pink and moist, no icterus, sclera white, non-injected Ears: Right ear: External ear/canal- Normal, TM - clear with good landmarks. Left ear: External ear/canal- Normal, TM - clear with good landmarks Oropharynx:moist without lesions, No erythema, exudates or tonsillar hypertrophy. Heart: Negative. RRR without obvious murmur, gallop, or rubs. No ectopy. Lungs: clear to auscultation, without rales or wheeze, good air exchange PAST MEDICAL HISTORY Diagnosis Date Abnormal toxicological findings 02/01/2021 Tox screen 01/27/2021 showed no benzos and pos for oxycodone which patient was not on. Patient informed of no further controlled med refills. 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 Chronic anxiety 06/17/2018 Degenerative arthritis of lumbar spine 05/06/2014 Elevated blood sugar 01/27/2021 Emphysema of lung (HCC) 03/18/2015 Essential hypertension, benign 02/21/2015 Ex-smoker 01/27/2021 Started around 89 and quit 2004. Smoked about 1.5 PPD Herpes 01/27/2021 History of 2019 novel coronavirus disease (COVID-19) 01/27/202106/2020 HSV (herpes simplex virus) anogenital infection 02/08/2016 Lung mass 09/07/2011 Lung nodules 05/30/[address] Suleman Gustafson Medicare annual wellness visit, subsequent 01/27/2021 Medicare Part B: NA Last done: Multiple thyroid nodules 01/27/[address] Vigil and f/u was stable. Told no need for further f/u. 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 Takes mid morning. Substance agreement signed and Tox screen done 12/2020. 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 COLONOSCOPY FLX DX W/COLLJ SPEC WHEN PFRMD 08/19/2006 Repeat in COLONOSCOPY FLX DX W/COLLJ SPEC WHEN PFRMD 06/27/2016 Colonoscopy CRANIOPLASTY SKULL DEF/REPAIR/ BRAIN 09/14/2014 See scanned documents - status post ESOPHAGOGASTRODUODENOSCOPY TRANSORAL DIAGNOSTIC 06/27/2016 EGD ESOPHAGOGASTRODUODENOSCOPY TRANSORAL DIAGNOSTIC 06/30/2018 EGD I&D ABSCESS CMPLX/MULT 07/2013 Epidural abscess- MSSA LIG/TRNSXJ FLP TUBE ABDL/VAG APPR UNI/BI Tubal ligation PAST SURGICAL HISTORY OF spinal surgery PAST SURGICAL HISTORY OF retinal detachment OD, (2 tears) PAST SURGICAL HISTORY OF 2013 back surgery STRESS TEST NUCLEAR 05/23/2021 negative ALLERGIES Fish, Horse Serum [Other], Lisinopril, and Seafood [Other] MEDICATIONS omeprazole (PRILOSEC) 40 mg capsule Take 1 capsule by mouth once daily. ZINC ORAL Take by mouth as directed. traZODone (DESYREL) 100 mg tablet Take 1 tablet by mouth daily at bedtime. amLODIPine (NORVASC) 2.5 mg tablet Take 1 tablet by mouth once daily. alendronate (FOSAMAX) 70 mg tablet Take 1 tablet by mouth one time a week. Take with a full glass of water, on an empty stomach; do NOT lie down for 30minutes. acyclovir (ZOVIRAX) 400 mg tablet Take 1 tablet by mouth twice daily. folic acid 1 mg tablet Take 1 mg by mouth once daily. rx has B12 in it SYMBICORT 160-4.5 mcg/actuation inhaler SPIRIVA RESPIMAT 2.5 mcg/actuation inhaler BIOTIN ORAL Take 5,000 mcg by mouth. ascorbic acid/collagen hydr (COLLAGEN PLUS VITAMIN C ORAL) Take 1,000 mg by mouth twice daily. albuterol HFA (PROAIR HFA) 90 mcg/actuation inhaler Inhale 2 Puffs as instructed every 4 hours as needed for Wheezing/Shortness of Breath. Melatonin 5 mg cap 5 mg by mouth taken 2 hours prior to bedtime Ascorbic Acid (VITAMIN C) 1,000 mg TbER Take by mouth. Calcium Carb-Cholecalciferol (CALCIUM 600 WITH VITAMIN D3) 600-200 mg-unit ORAL Tab Take one(1) tablet two(2) times daily. predniSONE (DELTASONE) 20 mg tablet Take 2 tablets by mouth once daily for 5 days. FAMILY HISTORY Problem Relation Age of Onset Hypertension Mother other (cerebral aneurysm) Mother Colon Polyps Father Hypertension Father COPD Father Cancer Father Bladder Cancer other (Past medical history) Father abdominal aneurysm/bladder cancer other (aortic aneurysm) Father Social History Tobacco Use Smoking status: Former Smoker Packs/day: 1.50 Years: 15.00 Pack years: 22.50 Types: Cigarettes Quit date: 07/31/2005 Years since quittin.4 Smokeless tobacco: Never Used Vaping Use Vaping Use: Never used Substance Use Topics Alcohol use: Yes Alcohol/week: 25.0 - 37.5 standard drinks Types: 10 - 15 Cans of Beer (12oz) per week Comment: 5-8 beers daily Drug use: No ASSESSMENT/PLAN: 1. Cough - ICD9: 786.2, ICD10: R05.9 Does not want a viral swab. Prescription instructions reviewed with patient as applicable. Prednisone 40mg daily for 5 days. add an OTC allergy medication daily. Potential red flag symptoms discussed with the patient. Reviewed appropriate action plan to take if red flag symptoms occur. Patient agreeable to treatment plan. Shanna Nweton APRN.LUIS FELIPE documented in this encounterPark[facility]05-[facility] History of Present illness Narrative* Kami Hunter RN - 01/02/2022 2:31 PM EDT INSIGHT CDM TELEPHONIC OUTREACH Provider Action/FYI: Pt had returned call, left voicemail. Returned call to patient, reports she is doing good, no copd concerns. Pt had no questions, concerns, needs at this time. Contact made with patient: Yes Patient identified by name and . Discussed care with patient It s nice talking to you again. As a reminder, this is our bi-weekly check-in where I will be asking you questions about your health. This will only take a few minutes of your time. Is this a good time? Yes Symptoms What Chronic Disease(s) does the patient have: COPD Do you check your blood pressures at home? No Do you have new or worse shortness of breath with activity? No Do you have new or worsening cough? No Do you have new or worsening wheezing? No Do you need to use your rescue (Albuterol) inhaler or nebulizer more often than normal? No Are you having any other symptoms that your PCP needs to know about? No Symptom Escalation The patient required an escalation for symptom(s)? No Medications Do you have any questions about taking your medication or which medications you should be on? No Do you need any medication refills at this time, including any of the medications you might take only when needed? No Social We would like to make sure you have what you need so that your basic needs are met- including your personal safety, food, housing and medications? Would you like to speak with a social work medical director/head team physician to help give you support for any of these needs? No It can be normal to feel anxious or down during a time like this. Would you like to talk to a mental health professional about how you have been feeling? No Closing Thank you for taking the time to talk with me today. We want to work with you to ensure that we arekeeping your medical condition(s) well-controlled and to keep you healthy and out of the doctor's office or hospital. It s also not too late for me to sign you up for automated weekly questionnaires through [facility]. This is an easy way for us to stay connected each week. Are you interested? No, I understand. We can always sign you up in the future if you change your mind. Just as a reminder, will continue to call you every other week to check in on your health. Our calls should take 10-15 minutes or less. Remember, if you have concerns in between our calls, please call your PCP's office right away. Thank you. Enter next patient outreach date for two weeks on the same day of the week as today in the Track PtOutreach and End outreach. * Kami Hunter RN - 01/02/2022 1:03 PM EDT INSIGHT CDM TELEPHONIC OUTREACH Provider Action/FYI: Contact made with patient: No - Left message Hello my name is Kami Hunter RN your Lace Machine Operator [facility] I am calling today for your bi-weekly check in. I am sorry I missed your call. I will reach out to you again tomorrow. (if the third call I will reach out to you again next week) Enter next patient outreach date for the following using the Track Pt Outreach. End outreach. documented in this encounter[facility]04-26-2022 Miscellaneous Notes* Telephone Encounter - Shanita Green PA-C - 12/26/2021 1:30 PM EDT Noted. Shanita Green PA-C * Telephone Encounter - Mitzy Jacobson LPN - 12/26/2021 1:11 PM EDT Pt returned call & was given results. Pt states she takes a Vit C 1000mg tablet, she is unsure if any of her other supplements contain vit C also. Mitzy Jacobson LPN * Telephone Encounter - Melita Le LPN - 12/25/2021 8:52 AM EDT Left message for pt to contact . Melita Le LPN * Telephone Encounter - Shanita Green PA-C - 12/25/2021 8:47 AM EDT Let her know that her vit c level is mildly elevated as well. For vit c, This is unlikely to cause any issues, but she may just be taking more vitamins than needed. documented in this encounter[facility]04-[facility]22 Miscellaneous Notes* Telephone Encounter - Melita Le LPN - 12/22/2021 1:24 PM EDT Pt advised of same. Melita Le LPN * Telephone Encounter - Shanita Green PA-C - 12/22/2021 1:17 PM EDT No clue. Probably a couple days. * Telephone Encounter - Jody Rich LPN - 12/22/2021 1:15 PM EDT Patient calling, asking if we know how long the vitamin C result will take to come back. Please advise. documented in this encounterPark[facility]04-20-2022 Miscellaneous Notes* Telephone Encounter - Fannie Centeno LPN - 12/20/2021 3:27 PM EDT Spoke with pt and information listed below given. Pt verbalizes understanding. Fannie Centeno LPN * Telephone Encounter - Ainsley Del Valle Ma - 12/20/2021 3:12 PM EDT Left message for patient to call office back Ainsley Del Valle Ma * Telephone Encounter - Shanita Green PA-C - 12/20/2021 2:44 PM EDT Vit D toxicity Could cause high levels of calicum, n/v, muscle weaknes, bone pain and bone demineralization. Advise no more than 1000 mg of b12. Lets recheck levels in 1 month. * Telephone Encounter - Joana Au RN - 12/20/2021 2:01 PM EDT Patient returned call and given provider's message. Patient states she has been taking about 5813-6228 international unit(s) of Vit D a day and will take approx 2000 international unit(s) as recommended. Patient asks what a high Vit D level could cause? Patient states she takes approx. 2500 mcg of Vit B12 (with folic acid) daily. She asks how much sheshould reduce it to? Please advise patient. Thank you. * Telephone Encounter - Melita Le LPN - 12/20/2021 1:44 PM EDT Left message for pt to contact office. Melita Le LPN * Telephone Encounter - Shanita Green PA-C - 12/20/2021 1:29 PM EDT Let patient know that her vit d level is high. I need her to look at all of her vitamin and see howmuch vit D she is taking. She should only be on approx 2000IU daily. Her b12 level is high as well. So same thing, need to get her down on her b12 intake. How much is in the supplements? Rest of her labs are okay. Vit C is still in process. Shanita Green PA-C documented in this encounter[facility]04-19-[facility] History of Present illness Narrative* Shanita Green PA-C - 12/19/2021 10:39 AM EDT Chief Complaint Patient presents with: Toenails jagged and fingernail peeling HPI Diony Ramirez is a 66 year old female who presents here today for Above Complaints.. Patient has noted issues with her nails, mostly toe nails, where they seem to be brittle and sharp/jagged. She tries to file them down but then the next day they are the same. Has noted some changes in her finger nails as well. No yellowing or pain. Past medical history, appointments, medications, allergies reviewed. Previous Medical History PAST MEDICAL HISTORY Diagnosis Date Abnormal toxicological findings 02/01/2021 Tox screen 01/27/2021 showed no benzos and pos for oxycodone which patient was not on. Patient informed of no further controlled med refills. 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 Chronic anxiety 06/17/2018 Degenerative arthritis of lumbar spine 05/06/2014 Elevated blood sugar 01/27/2021 Emphysema of lung (HCC) 03/18/2015 Essential hypertension, benign 02/21/2015 Ex-smoker 01/27/2021 Started around 89 and quit 2004. Smoked about 1.5 PPD Herpes 01/27/2021 History of 2019 novel coronavirus disease (COVID-19) 01/27/202106/2020 HSV (herpes simplex virus) anogenital infection 02/08/2016 Lung mass 09/07/2011 Lung nodules 05/30/[address] Suleman Gustafson Medicare annual wellness visit, subsequent 01/27/2021 Medicare Part B: NA Last done: Multiple thyroid nodules 01/27/[address] Vigil and f/u was stable. Told no need for further f/u. 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 Takes mid morning. Substance agreement signed and Tox screen done 12/2020. 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 COLONOSCOPY FLX DX W/COLLJ SPEC WHEN PFRMD 08/19/2006 Repeat in COLONOSCOPY FLX DX W/COLLJ SPEC WHEN PFRMD 06/27/2016 Colonoscopy CRANIOPLASTY SKULL DEF/REPAIR/ BRAIN 09/14/2014 See scanned documents - status post ESOPHAGOGASTRODUODENOSCOPY TRANSORAL DIAGNOSTIC 06/27/2016 EGD ESOPHAGOGASTRODUODENOSCOPY TRANSORAL DIAGNOSTIC 06/30/2018 EGD I&D ABSCESS CMPLX/MULT 07/2013 Epidural abscess- MSSA LIG/TRNSXJ FLP TUBE ABDL/VAG APPR UNI/BI Tubal ligation PAST SURGICAL HISTORY OF spinal surgery PAST SURGICAL HISTORY OF 2/307 retinal detachment OD, (2 tears) PAST SURGICAL HISTORY OF 2012 back surgery STRESS TEST NUCLEAR 05/23/2021 negative Family History FAMILY HISTORY Problem Relation Age of Onset Hypertension Mother other (cerebral aneurysm) Mother Colon Polyps Father Hypertension Father COPD Father Cancer Father Bladder Cancer other (Past medical history) Father abdominal aneurysm/bladder cancer other (aortic aneurysm) Father Patient Allergies ALLERGIES Allergen Reactions Fish Unknown Horse Serum [Other] Unknown Lisinopril Cough Seafood [Other] Unknown Current Medications Current Outpatient Medications on File Prior to Visit Medication Sig ZINC ORAL Take by mouth as directed. traZODone (DESYREL) 100 mg tablet Take 1 tablet by mouth daily at bedtime. amLODIPine (NORVASC) 2.5 mg tablet Take 1 tablet by mouth once daily. alendronate (FOSAMAX) 70 mg tablet Take 1 tablet by mouth one time a week. Take with a full glass of water, on an empty stomach; do NOT lie down for 30minutes. acyclovir (ZOVIRAX) 400 mg tablet Take 1 tablet by mouth twice daily. folic acid 1 mg tablet Take 1 mg by mouth once daily. rx has B12 in it SYMBICORT 160-4.5 mcg/actuation inhaler SPIRIVA RESPIMAT 2.5 mcg/actuation inhaler BIOTIN ORAL Take 5,000 mcg by mouth. ascorbic acid/collagen hydr (COLLAGEN PLUS VITAMIN C ORAL) Take 1,000 mg by mouth twice daily. albuterol HFA (PROAIR HFA) 90 mcg/actuation inhaler Inhale 2 Puffs as instructed every 4 hours as needed for Wheezing/Shortness of Breath. Melatonin 5 mg cap 5 mg by mouth taken 2 hours prior to bedtime (Patient taking differently: 10 mg.5 mg by mouth taken 2 hours prior to bedtime ) Ascorbic Acid (VITAMIN C) 1,000 mg TbER Take by mouth. Calcium Carb-Cholecalciferol (CALCIUM 600 WITH VITAMIN D3) 600-200 mg-unit ORAL Tab Take one(1) tablet two(2) times daily. No current facility-administered medications on file prior to visit. Social History Social History Tobacco Use Smoking status: Former Smoker Packs/day: 1.50 Years: 15.00 Pack years: 22.50 Types: Cigarettes Quit date: 07/31/2005 Years since quittin.3 Smokeless tobacco: Never Used Vaping Use Vaping Use: Never used Substance Use Topics Alcohol use: Yes Alcohol/week: 25.0 - 37.5 standard drinks Types: 10 - 15 Cans of Beer (12oz) per week Comment: 5-8 beers daily Drug use: No Review of Symptoms REVIEW OF SYSTEMS see hpi EXAM: BP 104/60 (BP Site: Left Arm, BP Position: Sitting, BP Cuff Size: Small Adult) Pulse 63 Temp 37.1 C (98.8 F) Resp 18 Wt 44.3 kg (97 lb 9.6 oz) LMP 03/23/2007 BMI 21.06 kg/m General Appearance: Well appearing, alert, in no acute distress, well-hydrated, well nourished.. Skin: nail beds with normal appearance.. No erythema. Some dry skin noted on hands and feet. Nails overall appear normal. Ends of nails have some thinning and cracks. No discoloration or hypertrophy noted. Health Maintenance List ADVANCE DIRECTIVE DISCUSSION Never done MAMMOGRAM due on 07/25/2022 ANNUAL PCP TEAM CHRONIC DISEASE VISIT due on 12/19/2022 BP CONTROLLED (<130/80) due on 12/19/2022 PNEUMOVAX AGE 65 AND OVER WITH 5YR LOOKBACK(1) due on 05/19/2024 DIABETES SCREEN due on 09/21/2024 COLORECTAL CANCER SCREENING due on 06/27/2026 LIPID SCREEN due on 09/21/2026 DTAP,TDAP,TD(3 - Td or Tdap) due on 12/18/2028 BONE DENSITY Completed INFLUENZA Completed HEPATITIS C SCREENING Completed HIV SCREENING Completed SHINGRIX VACCINE Completed MENINGOCOCCAL CONJUGATE Aged Out SPIROMETRY Discontinued DEPRESSION SCREENING Discontinued COVID-19 VACCINE Discontinued Data reviewed ASSESSMENT/PLAN: 1. Brittle nails - ICD9: 703.8, ICD10: L60.3 Reassurance given. Will check some labs/vitamin levels. Discussed normal age related changes to nail. Could consider seeing derm Advised to not overfile nails - FOLATE SERUM - IRON + TIBC - VITAMIN B12 BLOOD - VITAMIN C - VITAMIN D 25 HYDROXY Shanita Green PA-C documented in this encounterPark[facility]04-[facility] History of Present illness Narrative* Kami Hunter RN - 12/18/2021 2:32 PM EDT INSIGHT CDM TELEPHONIC OUTREACH Provider Action/FYI: Pt reports she is doing good, no questions/concerns/needs at this time. Contact made with patient: Yes Patient identified by name and . Discussed care with patient It s nice talking to you again. As a reminder, this is our bi-weekly check-in where I will be asking you questions about your health. This will only take a few minutes of your time. Is this a good time? Yes Symptoms What Chronic Disease(s) does the patient have: COPD Do you check your blood pressures at home? No Do you have new or worse shortness of breath with activity? No Do you have new or worsening cough? No Do you have new or worsening wheezing? No Do you need to use your rescue (Albuterol) inhaler or nebulizer more often than normal? No Are you having any other symptoms that your PCP needs to know about? No Symptom Escalation The patient required an escalation for symptom(s)? No Medications Do you have any questions about taking your medication or which medications you should be on? No Do you need any medication refills at this time, including any of the medications you might take only when needed? No Social We would like to make sure you have what you need so that your basic needs are met- including your personal safety, food, housing and medications? Would you like to speak with a social work medical director/head team physician to help give you support for any of these needs? No It can be normal to feel anxious or down during a time like this. Would you like to talk to a mental health professional about how you have been feeling? No Closing Thank you for taking the time to talk with me today. We want to work with you to ensure that we arekeeping your medical condition(s) well-controlled and to keep you healthy and out of the doctor's office or hospital. It s also not too late for me to sign you up for automated weekly questionnaires through [facility]. This is an easy way for us to stay connected each week. Are you interested? No, I understand. We can always sign you up in the future if you change your mind. Just as a reminder, will continue to call you every other week to check in on your health. Our calls should take 10-15 minutes or less. Remember, if you have concerns in between our calls, please call your PCP's office right away. Thank you. Enter next patient outreach date for two weeks on the same day of the week as today in the Track PtOutreach and End outreach. documented in this encounter[facility]04-[facility] History of Present illness Narrative* Kami Hunter RN - 12/04/2021 3:14 PM EDT INSIGHT CD TELEPHONIC OUTREACH Provider Action/FYI: Pt reports she is doing good, no questions/concerns/needs at this time. Contact made with patient: Yes Patient identified by name and . Discussed care with patient It s nice talking to you again. As a reminder, this is our bi-weekly check-in where I will be asking you questions about your health. This will only take a few minutes of your time. Is this a good time? Yes Symptoms What Chronic Disease(s) does the patient have: COPD Do you check your blood pressures at home? No Do you have new or worse shortness of breath with activity? No Do you have new or worsening cough? No Do you have new or worsening wheezing? No Do you need to use your rescue (Albuterol) inhaler or nebulizer more often than normal? No Are you having any other symptoms that your PCP needs to know about? No Symptom Escalation The patient required an escalation for symptom(s)? No Medications Do you have any questions about taking your medication or which medications you should be on? No Do you need any medication refills at this time, including any of the medications you might take only when needed? No Social We would like to make sure you have what you need so that your basic needs are met- including your personal safety, food, housing and medications? Would you like to speak with a social work medical director/head team physician to help give you support for any of these needs? No It can be normal to feel anxious or down during a time like this. Would you like to talk to a mental health professional about how you have been feeling? No Closing Thank you for taking the time to talk with me today. We want to work with you to ensure that we arekeeping your medical condition(s) well-controlled and to keep you healthy and out of the doctor's office or hospital. It s also not too late for me to sign you up for automated weekly questionnaires through [employer]. This is an easy way for us to stay connected each week. Are you interested? No, I understand. We can always sign you up in the future if you change your mind. Just as a reminder, will continue to call you every other week to check in on your health. Our calls should take 10-15 minutes or less. Remember, if you have concerns in between our calls, please call your PCP's office right away. Thank you. Enter next patient outreach date for two weeks on the same day of the week as today in the Track PtOutreach and End outreach. [facility] History of Present illness Narrative* Bashir Landa Tech (Rt) - 12/17/2020 10:00 AM EDT Radiology Service Progress Note PATIENT NAME: Diony Ramirez DATE OF SERVICE: December 17, 2020 TIME: 10:08 AM PATIENT IDENTITY VERIFICATION COMPLETED USING TWO (2) IDENTIFIERS: Name and Date of confirmedby patient verbally. FALL SCREENING: Has the patient had 2 falls in the last year or 1 fall with injury or currently using an Ambulatory Assistive Device (Walker, Cane, Wheelchair, Crutches, etc.)? No PATIENT GENDER DATA: Female. status: : No status: NO. PATIENT RELEVANT IMPLANT DATA REVIEWED: Not Applicable RADIOLOGY DEPARTMENT: General X-ray: Exam(s) Completed: Pelvis X-Ray: Pelvis with Hip Left PERIPHERAL IV DATA: Not applicable SIGNED BY: RT Rivka December 17, 2020 10:08 AM documented in this encounterPark[facility]11[facility] History of Present illness Narrative* Kita De La Torre)Uriah - 07/23/2020 9:50 AM EST Radiology Service Progress Note positive Covid 19 on 2019 PATIENT NAME: Diony Ramirez DATE OF SERVICE: July 23, 2020 TIME: 10:01 AM PATIENT IDENTITY VERIFICATION COMPLETED USING TWO (2) IDENTIFIERS: Name and Date of confirmedby patient verbally. FALL SCREENING: Has the patient had 2 falls in the last year or 1 fall with injury or currently using an Ambulatory Assistive Device (Walker, Cane, Wheelchair, Crutches, etc.)? No PATIENT GENDER DATA: Female. status: : No status: NO. PATIENT RELEVANT IMPLANT DATA REVIEWED: Not Applicable RADIOLOGY DEPARTMENT: General X-ray: Exam(s) Completed: Chest X-Ray PERIPHERAL IV DATA: Not applicable SIGNED BY: Uriah Antonio July 23, 2020 10:01 AM documented in this encounterPark[facility]11-[facility] Miscellaneous Notes* Result Encounter Note - Darvin Gold III - 07/23/2020 9:50 AM EST Good news chest x-ray is normal. No evidence of pneumonia. Darvin Gold III, MD, FAAFP documented in this encounterPark[facility]11-21-2020 Progress note* Result Encounter Note - Darvin Gold III - 07/23/2020 9:50 AM EST Good news chest x-ray is normal. No evidence of pneumonia. Darvin Gold III, MD, FAAFP [facility] History of Past illness Narrative* Problem Noted Date Resolved Date Carpal tunnel syndrome, right 01/03/2017 Median nerve entrapment 10/10/2016 09/21/19 20 Nocturnal muscle cramps 09/11/2016 09/21/19 20 HSV (herpes simplex virus) anogenital infection 02/08/2016 09/21/2019 Chest pain, atypical 12/15/2013 04/28/2014 SOB (shortness of breath) 12/15/20132013 Epidural abscess 09/16/2013 04/28/2014 Lung mass 09/07/2011 09/21/2019 Climacteric 01/13/2010 08/07/2016 Disorders of bursae and tend ons in shoulder region, unspecified 02/26/2009 12/07/2015 Contact dermatitis and other eczema due to other specified agent 02/03/2009 12/07/2015 Cervicalgia 07/26/2008 09/21/2019 Pain in joint, shoulder region 07/26/2008 0 03/18/2017 Contact dermatitis and other eczema, due to unspecified cause 02/05/2008 12/07/2015 Adjustment disorder with depressed mood 05/20/20 06 09/21/2019 documented as of this encounter (statuses as of 12/04/2021) [facility] Narrative* Problem Noted Date Resolved Date Carpal tunnel syndrome, right 01/03/2017 Median nerve entrapment 10/10/2016 09/21/19 20 Nocturnal muscle cramps 09/11/2016 09/21/19 20 HSV (herpes simplex virus) anogenital infection 02/08/2016 09/21/2019 Chest pain, atypical 12/15/2013 04/28/2014 SOB (shortness of breath) 12/15/20132013 Epidural abscess 09/16/2013 04/28/2014 Lung mass 09/07/2011 09/21/2019 Climacteric 01/13/2010 08/07/2016 Disorders of bursae and tend ons in shoulder region, unspecified 02/26/2009 12/07/2015 Contact dermatitis and other eczema due to other specified agent 02/03/2009 12/07/2015 Cervicalgia 07/26/2008 09/21/2019 Pain in joint, shoulder region 07/26/2008 0 03/18/2017 Contact dermatitis and other eczema, due to unspecified cause 02/05/2008 12/07/2015 Adjustment disorder with depressed mood 05/20/20 06 09/21/2019 documented as of this encounter (statuses as of 12/18/2021) [facility] Narrative* Problem Noted Date Resolved Date Carpal tunnel syndrome, right 01/03/2017 Median nerve entrapment 10/10/2016 09/21/19 20 Nocturnal muscle cramps 09/11/2016 09/21/19 20 HSV (herpes simplex virus) anogenital infection 02/08/2016 09/21/2019 Chest pain, atypical 12/15/2013 04/28/2014 SOB (shortness of breath) 12/15/20132013 Epidural abscess 09/16/2013 04/28/2014 Lung mass 09/07/2011 09/21/2019 Climacteric 01/13/2010 08/07/2016 Disorders of bursae and tend ons in shoulder region, unspecified 02/26/2009 12/07/2015 Contact dermatitis and other eczema due to other specified agent 02/03/2009 12/07/2015 Cervicalgia 07/26/2008 09/21/2019 Pain in joint, shoulder region 07/26/2008 0 03/18/2017 Contact dermatitis and other eczema, due to unspecified cause 02/05/2008 12/07/2015 Adjustment disorder with depressed mood 05/20/2009/21/2019 documented as of this encounter (statuses as of 12/19/2021) [facility]arrative* Problem Noted Date Resolved Date Carpal tunnel syndrome, right 01/03/2017 Median nerve entrapment 10/10/2016 09/21/19 20 Nocturnal muscle cramps 09/11/2016 09/21/19 20 HSV (herpes simplex virus) anogenital infection 02/08/2016 09/21/2019 Chest pain, atypical 12/15/2013 04/28/2014 SOB (shortness of breath) 12/15/20132013 Epidural abscess 09/16/2013 04/28/2014 Lung mass 09/07/2011 09/21/2019 Climacteric 01/13/2010 08/07/2016 Disorders of bursae and tend ons in shoulder region, unspecified 02/26/2009 12/07/2015 Contact dermatitis and other eczema due to other specified agent 02/03/2009 12/07/2015 Cervicalgia 07/26/2008 09/21/2019 Pain in joint, shoulder region 07/26/2008 0 03/18/2017 Contact dermatitis and other eczema, due to unspecified cause 02/05/2008 12/07/2015 Adjustment disorder with depressed mood 05/20/20 06 09/21/2019 documented as of this encounter (statuses as of 12/20/2021) [facility]arrative* Problem Noted Date Resolved Date Carpal tunnel syndrome, right 01/03/2017 Median nerve entrapment 10/10/2016 09/21/19 20 Nocturnal muscle cramps 09/11/2016 09/21/19 20 HSV (herpes simplex virus) anogenital infection 02/08/2016 09/21/2019 Chest pain, atypical 12/15/2013 04/28/2014 SOB (shortness of breath) 12/15/20132013 Epidural abscess 09/16/2013 04/28/2014 Lung mass 09/07/2011 09/21/2019 Climacteric 01/13/2010 08/07/2016 Disorders of bursae and tend ons in shoulder region, unspecified 02/26/2009 12/07/2015 Contact dermatitis and other eczema due to other specified agent 02/03/2009 12/07/2015 Cervicalgia 07/26/2008 09/21/2019 Pain in joint, shoulder region 07/26/2008 0 03/18/2017 Contact dermatitis and other eczema, due to unspecified cause 02/05/2008 12/07/2015 Adjustment disorder with depressed mood 05/20/2009/21/2019 documented as of this encounter (statuses as of 12/22/2021) [facility]* Problem Noted Date Resolved Date Carpal tunnel syndrome, right 01/03/2017 Median nerve entrapment 10/10/2016 09/21/19 20 Nocturnal muscle cramps 09/11/2016 09/21/19 20 HSV (herpes simplex virus) anogenital infection 02/08/2016 09/21/2019 Chest pain, atypical 12/15/2013 04/28/2014 SOB (shortness of breath) 12/15/20132013 Epidural abscess 09/16/2013 04/28/2014 Lung mass 09/07/2011 09/21/2019 Climacteric 01/13/2010 08/07/2016 Disorders of bursae and tend ons in shoulder region, unspecified 02/26/2009 12/07/2015 Contact dermatitis and other eczema due to other specified agent 02/03/2009 12/07/2015 Cervicalgia 07/26/2008 09/21/2019 Pain in joint, shoulder region 07/26/2008 0 03/18/2017 Contact dermatitis and other eczema, due to unspecified cause 02/05/2008 12/07/2015 Adjustment disorder with depressed mood 05/20/20 06 09/21/2019 documented as of this encounter (statuses as of 12/26/2021) [facility]* Problem Noted Date Resolved Date Carpal tunnel syndrome, right 01/03/2017 Median nerve entrapment 10/10/2016 09/21/19 20 Nocturnal muscle cramps 09/11/2016 09/21/19 20 HSV (herpes simplex virus) anogenital infection 02/08/2016 09/21/2019 Chest pain, atypical 12/15/2013 04/28/2014 SOB (shortness of breath) 12/15/20132013 Epidural abscess 09/16/2013 04/28/2014 Lung mass 09/07/2011 09/21/2019 Climacteric 01/13/2010 08/07/2016 Disorders of bursae and tend ons in shoulder region, unspecified 02/26/2009 12/07/2015 Contact dermatitis and other eczema due to other specified agent 02/03/2009 12/07/2015 Cervicalgia 07/26/2008 09/21/2019 Pain in joint, shoulder region 07/26/2008 0 03/18/2017 Contact dermatitis and other eczema, due to unspecified cause 02/05/2008 12/07/2015 Adjustment disorder with depressed mood 05/20/20 06 09/21/2019 documented as of this encounter (statuses as of 01/02/2022) [facility]* Problem Noted Date Resolved Date Carpal tunnel syndrome, right 01/03/2017 Median nerve entrapment 10/10/2016 09/21/19 20 Nocturnal muscle cramps 09/11/2016 09/21/19 20 HSV (herpes simplex virus) anogenital infection 02/08/2016 09/21/2019 Chest pain, atypical 12/15/2013 04/28/2014 SOB (shortness of breath) 12/15/20132013 Epidural abscess 09/16/2013 04/28/2014 Lung mass 09/07/2011 09/21/2019 Climacteric 01/13/2010 08/07/2016 Disorders of bursae and tend ons in shoulder region, unspecified 02/26/2009 12/07/2015 Contact dermatitis and other eczema due to other specified agent 02/03/2009 12/07/2015 Cervicalgia 07/26/2008 09/21/2019 Pain in joint, shoulder region 07/26/2008 0 03/18/2017 Contact dermatitis and other eczema, due to unspecified cause 02/05/2008 12/07/2015 Adjustment disorder with depressed mood 05/20/20 06 09/21/2019 documented as of this encounter (statuses as of 01/10/2022) [facility]* Problem Noted Date Resolved Date Carpal tunnel syndrome, right 01/03/2017 Median nerve entrapment 10/10/2016 09/21/19 20 Nocturnal muscle cramps 09/11/2016 09/21/19 20 HSV (herpes simplex virus) anogenital infection 02/08/2016 09/21/2019 Chest pain, atypical 12/15/2013 04/28/2014 SOB (shortness of breath) 12/15/20132013 Epidural abscess 09/16/2013 04/28/2014 Lung mass 09/07/2011 09/21/2019 Climacteric 01/13/2010 08/07/2016 Disorders of bursae and tend ons in shoulder region, unspecified 02/26/2009 12/07/2015 Contact dermatitis and other eczema due to other specified agent 02/03/2009 12/07/2015 Cervicalgia 07/26/2008 09/21/2019 Pain in joint, shoulder region 07/26/2008 0 03/18/2017 Contact dermatitis and other eczema, due to unspecified cause 02/05/2008 12/07/2015 Adjustment disorder with depressed mood 05/20/20 06 09/21/2019 documented as of this encounter (statuses as of 01/10/2022) [facility]* Problem Noted Date Resolved Date Carpal tunnel syndrome, right 01/03/2017 Median nerve entrapment 10/10/2016 09/21/19 20 Nocturnal muscle cramps 09/11/2016 09/21/19 20 HSV (herpes simplex virus) anogenital infection 02/08/2016 09/21/2019 Chest pain, atypical 12/15/2013 04/28/2014 SOB (shortness of breath) 12/15/20132013 Epidural abscess 09/16/2013 04/28/2014 Lung mass 09/07/2011 09/21/2019 Climacteric 01/13/2010 08/07/2016 Disorders of bursae and tend ons in shoulder region, unspecified 02/26/2009 12/07/2015 Contact dermatitis and other eczema due to other specified agent 02/03/2009 12/07/2015 Cervicalgia 07/26/2008 09/21/2019 Pain in joint, shoulder region 07/26/2008 0 03/18/2017 Contact dermatitis and other eczema, due to unspecified cause 02/05/2008 12/07/2015 Adjustment disorder with depressed mood 05/20/2009/21/2019 documented as of this encounter (statuses as of 01/15/2022) [facility]* Problem Noted Date Resolved Date Carpal tunnel syndrome, right 01/03/2017 Median nerve entrapment 10/10/2016 09/21/19 20 Nocturnal muscle cramps 09/11/2016 09/21/19 20 HSV (herpes simplex virus) anogenital infection 02/08/2016 09/21/2019 Chest pain, atypical 12/15/2013 04/28/2014 SOB (shortness of breath) 12/15/20132013 Epidural abscess 09/16/2013 04/28/2014 Lung mass 09/07/2011 09/21/2019 Climacteric 01/13/2010 08/07/2016 Disorders of bursae and tend ons in shoulder region, unspecified 02/26/2009 12/07/2015 Contact dermatitis and other eczema due to other specified agent 02/03/2009 12/07/2015 Cervicalgia 07/26/2008 09/21/2019 Pain in joint, shoulder region 07/26/2008 0 03/18/2017 Contact dermatitis and other eczema, due to unspecified cause 02/05/2008 12/07/2015 Adjustment disorder with depressed mood 05/20/20 06 09/21/2019 documented as of this encounter (statuses as of 02/01/2022) [facility]* Problem Noted Date Resolved Date Carpal tunnel syndrome, right 01/03/2017 Median nerve entrapment 10/10/2016 09/21/19 20 Nocturnal muscle cramps 09/11/2016 09/21/19 20 HSV (herpes simplex virus) anogenital infection 02/08/2016 09/21/2019 Chest pain, atypical 12/15/2013 04/28/2014 SOB (shortness of breath) 12/15/20132013 Epidural abscess 09/16/2013 04/28/2014 Lung mass 09/07/2011 09/21/2019 Climacteric 01/13/2010 08/07/2016 Disorders of bursae and tend ons in shoulder region, unspecified 02/26/2009 12/07/2015 Contact dermatitis and other eczema due to other specified agent 02/03/2009 12/07/2015 Cervicalgia 07/26/2008 09/21/2019 Pain in joint, shoulder region 07/26/2008 0 03/18/2017 Contact dermatitis and other eczema, due to unspecified cause 02/05/2008 12/07/2015 Adjustment disorder with depressed mood 05/20/2009/21/2019 documented as of this encounter (statuses as of 02/15/2022) [facility]* Problem Noted Date Resolved Date Carpal tunnel syndrome, right 01/03/2017 Median nerve entrapment 10/10/2016 09/21/19 20 Nocturnal muscle cramps 09/11/2016 09/21/19 20 HSV (herpes simplex virus) anogenital infection 02/08/2016 09/21/2019 Chest pain, atypical 12/15/2013 04/28/2014 SOB (shortness of breath) 12/15/20132013 Epidural abscess 09/16/2013 04/28/2014 Lung mass 09/07/2011 09/21/2019 Climacteric 01/13/2010 08/07/2016 Disorders of bursae and tend ons in shoulder region, unspecified 02/26/2009 12/07/2015 Contact dermatitis and other eczema due to other specified agent 02/03/2009 12/07/2015 Cervicalgia 07/26/2008 09/21/2019 Pain in joint, shoulder region 07/26/2008 0 03/18/2017 Contact dermatitis and other eczema, due to unspecified cause 02/05/2008 12/07/2015 Adjustment disorder with depressed mood 05/20/20 06 09/21/2019 documented as of this encounter (statuses as of 03/02/2022) [facility]* Problem Noted Date Resolved Date Carpal tunnel syndrome, right 01/03/2017 Median nerve entrapment 10/10/2016 09/21/19 20 Nocturnal muscle cramps 09/11/2016 09/21/19 20 HSV (herpes simplex virus) anogenital infection 02/08/2016 09/21/2019 Chest pain, atypical 12/15/2013 04/28/2014 SOB (shortness of breath) 12/15/20132013 Epidural abscess 09/16/2013 04/28/2014 Lung mass 09/07/2011 09/21/2019 Climacteric 01/13/2010 08/07/2016 Disorders of bursae and tend ons in shoulder region, unspecified 02/26/2009 12/07/2015 Contact dermatitis and other eczema due to other specified agent 02/03/2009 12/07/2015 Cervicalgia 07/26/2008 09/21/2019 Pain in joint, shoulder region 07/26/2008 0 03/18/2017 Contact dermatitis and other eczema, due to unspecified cause 02/05/2008 12/07/2015 Adjustment disorder with depressed mood 05/20/2009/21/2019 documented as of this encounter (statuses as of 03/06/2022) [facility]* Problem Noted Date Resolved Date Carpal tunnel syndrome, right 01/03/2017 Median nerve entrapment 10/10/2016 09/21/19 20 Nocturnal muscle cramps 09/11/2016 09/21/19 20 HSV (herpes simplex virus) anogenital infection 02/08/2016 09/21/2019 Chest pain, atypical 12/15/2013 04/28/2014 SOB (shortness of breath) 12/15/20132013 Epidural abscess 09/16/2013 04/28/2014 Lung mass 09/07/2011 09/21/2019 Climacteric 01/13/2010 08/07/2016 Disorders of bursae and tend ons in shoulder region, unspecified 02/26/2009 12/07/2015 Contact dermatitis and other eczema due to other specified agent 02/03/2009 12/07/2015 Cervicalgia 07/26/2008 09/21/2019 Pain in joint, shoulder region 07/26/2008 0 03/18/2017 Contact dermatitis and other eczema, due to unspecified cause 02/05/2008 12/07/2015 Adjustment disorder with depressed mood 05/20/20 06 09/21/2019 documented as of this encounter (statuses as of 03/14/2022) [facility]* Problem Noted Date Resolved Date Carpal tunnel syndrome, right 01/03/2017 Median nerve entrapment 10/10/2016 09/21/19 20 Nocturnal muscle cramps 09/11/2016 09/21/19 20 HSV (herpes simplex virus) anogenital infection 02/08/2016 09/21/2019 Chest pain, atypical 12/15/2013 04/28/2014 SOB (shortness of breath) 12/15/20132013 Epidural abscess 09/16/2013 04/28/2014 Lung mass 09/07/2011 09/21/2019 Climacteric 01/13/2010 08/07/2016 Disorders of bursae and tend ons in shoulder region, unspecified 02/26/2009 12/07/2015 Contact dermatitis and other eczema due to other specified agent 02/03/2009 12/07/2015 Cervicalgia 07/26/2008 09/21/2019 Pain in joint, shoulder region 07/26/2008 0 03/18/2017 Contact dermatitis and other eczema, due to unspecified cause 02/05/2008 12/07/2015 Adjustment disorder with depressed mood 05/20/20 06 09/21/2019 documented as of this encounter (statuses as of 03/20/2022) [facility]* Problem Noted Date Resolved Date Carpal tunnel syndrome, right 01/03/2017 Median nerve entrapment 10/10/2016 09/21/19 20 Nocturnal muscle cramps 09/11/2016 09/21/19 20 HSV (herpes simplex virus) anogenital infection 02/08/2016 09/21/2019 Chest pain, atypical 12/15/2013 04/28/2014 SOB (shortness of breath) 12/15/20132013 Epidural abscess 09/16/2013 04/28/2014 Lung mass 09/07/2011 09/21/2019 Climacteric 01/13/2010 08/07/2016 Disorders of bursae and tend ons in shoulder region, unspecified 02/26/2009 12/07/2015 Contact dermatitis and other eczema due to other specified agent 02/03/2009 12/07/2015 Cervicalgia 07/26/2008 09/21/2019 Pain in joint, shoulder region 07/26/2008 0 03/18/2017 Contact dermatitis and other eczema, due to unspecified cause 02/05/2008 12/07/2015 Adjustment disorder with depressed mood 05/20/20 06 09/21/2019 documented as of this encounter (statuses as of 03/21/2022) [facility]* Problem Noted Date Resolved Date Carpal tunnel syndrome, right 01/03/2017 Median nerve entrapment 10/10/2016 09/21/19 20 Nocturnal muscle cramps 09/11/2016 09/21/19 20 HSV (herpes simplex virus) anogenital infection 02/08/2016 09/21/2019 Chest pain, atypical 12/15/2013 04/28/2014 SOB (shortness of breath) 12/15/20132013 Epidural abscess 09/16/2013 04/28/2014 Lung mass 09/07/2011 09/21/2019 Climacteric 01/13/2010 08/07/2016 Disorders of bursae and tend ons in shoulder region, unspecified 02/26/2009 12/07/2015 Contact dermatitis and other eczema due to other specified agent 02/03/2009 12/07/2015 Cervicalgia 07/26/2008 09/21/2019 Pain in joint, shoulder region 07/26/2008 0 03/18/2017 Contact dermatitis and other eczema, due to unspecified cause 02/05/2008 12/07/2015 Adjustment disorder with depressed mood 05/20/20 06 09/21/2019 documented as of this encounter (statuses as of 03/23/2022) [facility]* Problem Noted Date Resolved Date Carpal tunnel syndrome, right 01/03/2017 Median nerve entrapment 10/10/2016 09/21/19 20 Nocturnal muscle cramps 09/11/2016 09/21/19 20 HSV (herpes simplex virus) anogenital infection 02/08/2016 09/21/2019 Chest pain, atypical 12/15/2013 04/28/2014 SOB (shortness of breath) 12/15/20132013 Epidural abscess 09/16/2013 04/28/2014 Lung mass 09/07/2011 09/21/2019 Climacteric 01/13/2010 08/07/2016 Disorders of bursae and tend ons in shoulder region, unspecified 02/26/2009 12/07/2015 Contact dermatitis and other eczema due to other specified agent 02/03/2009 12/07/2015 Cervicalgia 07/26/2008 09/21/2019 Pain in joint, shoulder region 07/26/2008 0 03/18/2017 Contact dermatitis and other eczema, due to unspecified cause 02/05/2008 12/07/2015 Adjustment disorder with depressed mood 05/20/2009/21/2019 documented as of this encounter (statuses as of 03/26/2022) [facility]* Problem Noted Date Resolved Date Carpal tunnel syndrome, right 01/03/2017 Median nerve entrapment 10/10/2016 09/21/19 20 Nocturnal muscle cramps 09/11/2016 09/21/19 20 HSV (herpes simplex virus) anogenital infection 02/08/2016 09/21/2019 Chest pain, atypical 12/15/2013 04/28/2014 SOB (shortness of breath) 12/15/20132013 Epidural abscess 09/16/2013 04/28/2014 Lung mass 09/07/2011 09/21/2019 Climacteric 01/13/2010 08/07/2016 Disorders of bursae and tend ons in shoulder region, unspecified 02/26/2009 12/07/2015 Contact dermatitis and other eczema due to other specified agent 02/03/2009 12/07/2015 Cervicalgia 07/26/2008 09/21/2019 Pain in joint, shoulder region 07/26/2008 0 03/18/2017 Contact dermatitis and other eczema, due to unspecified cause 02/05/2008 12/07/2015 Adjustment disorder with depressed mood 05/20/2009/21/2019 documented as of this encounter (statuses as of 03/30/2022) [facility]* Problem Noted Date Resolved Date Carpal tunnel syndrome, right 01/03/2017 Median nerve entrapment 10/10/2016 09/21/19 20 Nocturnal muscle cramps 09/11/2016 09/21/19 20 HSV (herpes simplex virus) anogenital infection 02/08/2016 09/21/2019 Chest pain, atypical 12/15/2013 04/28/2014 SOB (shortness of breath) 12/15/20132013 Epidural abscess 09/16/2013 04/28/2014 Lung mass 09/07/2011 09/21/2019 Climacteric 01/13/2010 08/07/2016 Disorders of bursae and tend ons in shoulder region, unspecified 02/26/2009 12/07/2015 Contact dermatitis and other eczema due to other specified agent 02/03/2009 12/07/2015 Cervicalgia 07/26/2008 09/21/2019 Pain in joint, shoulder region 07/26/2008 0 03/18/2017 Contact dermatitis and other eczema, due to unspecified cause 02/05/2008 12/07/2015 Adjustment disorder with depressed mood 05/20/20 06 09/21/2019 documented as of this encounter (statuses as of 03/30/2022) [facility]05-[facility]-2017 History of Past illness Narrative* Problem Noted Date Resolved Date Carpal tunnel syndrome, right 01/03/2017 Median nerve entrapment 10/10/2016 09/21/19 Nocturnal muscle cramps 09/11/2016 09/21/19 20 HSV (herpes simplex virus) anogenital infection 02/08/2016 09/21/2019 Chest pain, atypical 12/15/2013 04/28/2014 SOB (shortness of breath) 12/15/20132013 Epidural abscess 09/16/2013 04/28/2014 Lung mass 09/07/2011 09/21/2019 Climacteric 01/13/2010 08/07/2016 Disorders of bursae and tend ons in shoulder region, unspecified 02/26/2009 12/07/2015 Contact dermatitis and other eczema due to other specified agent 02/03/2009 12/07/2015 Cervicalgia 07/26/2008 09/21/2019 Pain in joint, shoulder region 07/26/2008 0 03/18/2017 Contact dermatitis and other eczema, due to unspecified cause 02/05/2008 12/07/2015 Adjustment disorder with depressed mood 05/20/20 06 09/21/2019 documented as of this encounter (statuses as of 04/03/2022) [facility]2017 History of Past illness Narrative* Problem Noted Date Resolved Date Carpal tunnel syndrome, right 01/03/2017 Median nerve entrapment 10/10/2016 09/21/19 20 Nocturnal muscle cramps 09/11/2016 09/21/19 20 HSV (herpes simplex virus) anogenital infection 02/08/2016 09/21/2019 Chest pain, atypical 12/15/2013 04/28/2014 SOB (shortness of breath) 12/15/20132013 Epidural abscess 09/16/2013 04/28/2014 Lung mass 09/07/2011 09/21/2019 Climacteric 01/13/2010 08/07/2016 Disorders of bursae and tend ons in shoulder region, unspecified 02/26/2009 12/07/2015 Contact dermatitis and other eczema due to other specified agent 02/03/2009 12/07/2015 Cervicalgia 07/26/2008 09/21/2019 Pain in joint, shoulder region 07/26/2008 0 03/18/2017 Contact dermatitis and other eczema, due to unspecified cause 02/05/2008 12/07/2015 Adjustment disorder with depressed mood 05/20/2009/21/2019 documented as of this encounter (statuses as of 04/10/2022) [facility]2017 History of Past illness Narrative* Problem Noted Date Resolved Date Carpal tunnel syndrome, right 01/03/2017 Median nerve entrapment 10/10/2016 09/21/19 20 Nocturnal muscle cramps 09/11/2016 09/21/19 20 HSV (herpes simplex virus) anogenital infection 02/08/2016 09/21/2019 Chest pain, atypical 12/15/2013 04/28/2014 SOB (shortness of breath) 12/15/20132013 Epidural abscess 09/16/2013 04/28/2014 Lung mass 09/07/2011 09/21/2019 Climacteric 01/13/2010 08/07/2016 Disorders of bursae and tend ons in shoulder region, unspecified 02/26/2009 12/07/2015 Contact dermatitis and other eczema due to other specified agent 02/03/2009 12/07/2015 Cervicalgia 07/26/2008 09/21/2019 Pain in joint, shoulder region 07/26/2008 0 03/18/2017 Contact dermatitis and other eczema, due to unspecified cause 02/05/2008 12/07/2015 Adjustment disorder with depressed mood 05/20/2009/21/2019 documented as of this encounter (statuses as of 04/11/2022) [facility]2017 History of Past illness Narrative* Problem Noted Date Resolved Date Carpal tunnel syndrome, right 01/03/2017 Median nerve entrapment 10/10/2016 09/21/19 20 Nocturnal muscle cramps 09/11/2016 09/21/19 20 HSV (herpes simplex virus) anogenital infection 02/08/2016 09/21/2019 Chest pain, atypical 12/15/2013 04/28/2014 SOB (shortness of breath) 12/15/20132013 Epidural abscess 09/16/2013 04/28/2014 Lung mass 09/07/2011 09/21/2019 Climacteric 01/13/2010 08/07/2016 Disorders of bursae and tend ons in shoulder region, unspecified 02/26/2009 12/07/2015 Contact dermatitis and other eczema due to other specified agent 02/03/2009 12/07/2015 Cervicalgia 07/26/2008 09/21/2019 Pain in joint, shoulder region 07/26/2008 0 03/18/2017 Contact dermatitis and other eczema, due to unspecified cause 02/05/2008 12/07/2015 Adjustment disorder with depressed mood 05/20/20 06 09/21/2019 documented as of this encounter (statuses as of 04/23/2022) [facility] History of Past illness Narrative* Problem Noted Date Resolved Date Carpal tunnel syndrome, right 01/03/2017 Median nerve entrapment 10/10/2016 09/21/19 20 Nocturnal muscle cramps 09/11/2016 09/21/19 20 HSV (herpes simplex virus) anogenital infection 02/08/2016 09/21/2019 Chest pain, atypical 12/15/2013 04/28/2014 SOB (shortness of breath) 12/15/20132013 Epidural abscess 09/16/2013 04/28/2014 Lung mass 09/07/2011 09/21/2019 Climacteric 01/13/2010 08/07/2016 Disorders of bursae and tend ons in shoulder region, unspecified 02/26/2009 12/07/2015 Contact dermatitis and other eczema due to other specified agent 02/03/2009 12/07/2015 Cervicalgia 07/26/2008 09/21/2019 Pain in joint, shoulder region 07/26/2008 0 03/18/2017 Contact dermatitis and other eczema, due to unspecified cause 02/05/2008 12/07/2015 Adjustment disorder with depressed mood 05/20/20 06 09/21/2019 documented as of this encounter (statuses as of 04/24/2022) [facility] History of Past illness Narrative* Problem Noted Date Resolved Date Carpal tunnel syndrome, right 01/03/2017 Median nerve entrapment 10/10/2016 09/21/19 20 Nocturnal muscle cramps 09/11/2016 09/21/19 20 HSV (herpes simplex virus) anogenital infection 02/08/2016 09/21/2019 Chest pain, atypical 12/15/2013 04/28/2014 SOB (shortness of breath) 12/15/20132013 Epidural abscess 09/16/2013 04/28/2014 Lung mass 09/07/2011 09/21/2019 Climacteric 01/13/2010 08/07/2016 Disorders of bursae and tend ons in shoulder region, unspecified 02/26/2009 12/07/2015 Contact dermatitis and other eczema due to other specified agent 02/03/2009 12/07/2015 Cervicalgia 07/26/2008 09/21/2019 Pain in joint, shoulder region 07/26/2008 0 03/18/2017 Contact dermatitis and other eczema, due to unspecified cause 02/05/2008 12/07/2015 Adjustment disorder with depressed mood 05/20/20 06 09/21/2019 documented as of this encounter (statuses as of 05/01/2022) [facility] History of Past illness Narrative* Problem Noted Date Resolved Date Carpal tunnel syndrome, right 01/03/2017 Median nerve entrapment 10/10/2016 09/21/19 20 Nocturnal muscle cramps 09/11/2016 09/21/19 20 HSV (herpes simplex virus) anogenital infection 02/08/2016 09/21/2019 Chest pain, atypical 12/15/2013 04/28/2014 SOB (shortness of breath) 12/15/20132013 Epidural abscess 09/16/2013 04/28/2014 Lung mass 09/07/2011 09/21/2019 Climacteric 01/13/2010 08/07/2016 Disorders of bursae and tend ons in shoulder region, unspecified 02/26/2009 12/07/2015 Contact dermatitis and other eczema due to other specified agent 02/03/2009 12/07/2015 Cervicalgia 07/26/2008 09/21/2019 Pain in joint, shoulder region 07/26/2008 0 03/18/2017 Contact dermatitis and other eczema, due to unspecified cause 02/05/2008 12/07/2015 Adjustment disorder with depressed mood 05/20/2009/21/2019 documented as of this encounter (statuses as of 05/08/2022) [facility] History of Past illness Narrative* Problem Noted Date Resolved Date Carpal tunnel syndrome, right 01/03/2017 Median nerve entrapment 10/10/2016 09/21/19 20 Nocturnal muscle cramps 09/11/2016 09/21/19 20 HSV (herpes simplex virus) anogenital infection 02/08/2016 09/21/2019 Chest pain, atypical 12/15/2013 04/28/2014 SOB (shortness of breath) 12/15/20132013 Epidural abscess 09/16/2013 04/28/2014 Lung mass 09/07/2011 09/21/2019 Climacteric 01/13/2010 08/07/2016 Disorders of bursae and tend ons in shoulder region, unspecified 02/26/2009 12/07/2015 Contact dermatitis and other eczema due to other specified agent 02/03/2009 12/07/2015 Cervicalgia 07/26/2008 09/21/2019 Pain in joint, shoulder region 07/26/2008 0 03/18/2017 Contact dermatitis and other eczema, due to unspecified cause 02/05/2008 12/07/2015 Adjustment disorder with depressed mood 05/20/2009/21/2019 documented as of this encounter (statuses as of 05/08/2022) [facility] History of Past illness Narrative* Problem Noted Date Resolved Date Carpal tunnel syndrome, right 01/03/2017 Median nerve entrapment 10/10/2016 09/21/19 20 Nocturnal muscle cramps 09/11/2016 09/21/19 20 HSV (herpes simplex virus) anogenital infection 02/08/2016 09/21/2019 Chest pain, atypical 12/15/2013 04/28/2014 SOB (shortness of breath) 12/15/20132013 Epidural abscess 09/16/2013 04/28/2014 Lung mass 09/07/2011 09/21/2019 Climacteric 01/13/2010 08/07/2016 Disorders of bursae and tend ons in shoulder region, unspecified 02/26/2009 12/07/2015 Contact dermatitis and other eczema due to other specified agent 02/03/2009 12/07/2015 Cervicalgia 07/26/2008 09/21/2019 Pain in joint, shoulder region 07/26/2008 0 03/18/2017 Contact dermatitis and other eczema, due to unspecified cause 02/05/2008 12/07/2015 Adjustment disorder with depressed mood 05/20/2009/21/2019 documented as of this encounter (statuses as of 05/28/2022) [facility]2017 History of Past illness Narrative* Problem Noted Date Resolved Date Carpal tunnel syndrome, right 01/03/2017 Median nerve entrapment 10/10/2016 09/21/19 20 Nocturnal muscle cramps 09/11/2016 09/21/19 20 HSV (herpes simplex virus) anogenital infection 02/08/2016 09/21/2019 Chest pain, atypical 12/15/2013 04/28/2014 SOB (shortness of breath) 12/15/20132013 Epidural abscess 09/16/2013 04/28/2014 Lung mass 09/07/2011 09/21/2019 Climacteric 01/13/2010 08/07/2016 Disorders of bursae and tend ons in shoulder region, unspecified 02/26/2009 12/07/2015 Contact dermatitis and other eczema due to other specified agent 02/03/2009 12/07/2015 Cervicalgia 07/26/2008 09/21/2019 Pain in joint, shoulder region 07/26/2008 0 03/18/2017 Contact dermatitis and other eczema, due to unspecified cause 02/05/2008 12/07/2015 Adjustment disorder with depressed mood 05/20/2009/21/2019 documented as of this encounter (statuses as of 06/12/2022) [facility]2017 History of Past illness Narrative* Problem Noted Date Resolved Date Carpal tunnel syndrome, right 01/03/2017 Median nerve entrapment 10/10/2016 09/21/19 20 Nocturnal muscle cramps 09/11/2016 09/21/19 20 HSV (herpes simplex virus) anogenital infection 02/08/2016 09/21/2019 Chest pain, atypical 12/15/2013 04/28/2014 SOB (shortness of breath) 12/15/20132013 Epidural abscess 09/16/2013 04/28/2014 Lung mass 09/07/2011 09/21/2019 Climacteric 01/13/2010 08/07/2016 Disorders of bursae and tend ons in shoulder region, unspecified 02/26/2009 12/07/2015 Contact dermatitis and other eczema due to other specified agent 02/03/2009 12/07/2015 Cervicalgia 07/26/2008 09/21/2019 Pain in joint, shoulder region 07/26/2008 0 03/18/2017 Contact dermatitis and other eczema, due to unspecified cause 02/05/2008 12/07/2015 Adjustment disorder with depressed mood 05/20/2009/21/2019 documented as of this encounter (statuses as of 07/02/2022) [facility] History of Past illness Narrative* Problem Noted Date Resolved Date Carpal tunnel syndrome, right 01/03/2017 Median nerve entrapment 10/10/2016 09/21/19 20 Nocturnal muscle cramps 09/11/2016 09/21/19 20 HSV (herpes simplex virus) anogenital infection 02/08/2016 09/21/2019 Chest pain, atypical 12/15/2013 04/28/2014 SOB (shortness of breath) 12/15/20132013 Epidural abscess 09/16/2013 04/28/2014 Lung mass 09/07/2011 09/21/2019 Climacteric 01/13/2010 08/07/2016 Disorders of bursae and tend ons in shoulder region, unspecified 02/26/2009 12/07/2015 Contact dermatitis and other eczema due to other specified agent 02/03/2009 12/07/2015 Cervicalgia 07/26/2008 09/21/2019 Pain in joint, shoulder region 07/26/2008 0 03/18/2017 Contact dermatitis and other eczema, due to unspecified cause 02/05/2008 12/07/2015 Adjustment disorder with depressed mood 05/20/2009/21/2019 documented as of this encounter (statuses as of 07/04/2022) [facility] History of Past illness Narrative* Problem Noted Date Resolved Date Carpal tunnel syndrome, right 01/03/2017 Median nerve entrapment 10/10/2016 09/21/19 20 Nocturnal muscle cramps 09/11/2016 09/21/19 20 HSV (herpes simplex virus) anogenital infection 02/08/2016 09/21/2019 Chest pain, atypical 12/15/2013 04/28/2014 SOB (shortness of breath) 12/15/20132013 Epidural abscess 09/16/2013 04/28/2014 Lung mass 09/07/2011 09/21/2019 Climacteric 01/13/2010 08/07/2016 Disorders of bursae and tend ons in shoulder region, unspecified 02/26/2009 12/07/2015 Contact dermatitis and other eczema due to other specified agent 02/03/2009 12/07/2015 Cervicalgia 07/26/2008 09/21/2019 Pain in joint, shoulder region 07/26/2008 0 03/18/2017 Contact dermatitis and other eczema, due to unspecified cause 02/05/2008 12/07/2015 Adjustment disorder with depressed mood 05/20/20 06 09/21/2019 documented as of this encounter (statuses as of 07/05/2022) [facility]2017 History of Past illness Narrative* Problem Noted Date Resolved Date Carpal tunnel syndrome, right 01/03/2017 Median nerve entrapment 10/10/2016 09/21/19 20 Nocturnal muscle cramps 09/11/2016 09/21/19 20 HSV (herpes simplex virus) anogenital infection 02/08/2016 09/21/2019 Chest pain, atypical 12/15/2013 04/28/2014 SOB (shortness of breath) 12/15/20132013 Epidural abscess 09/16/2013 04/28/2014 Lung mass 09/07/2011 09/21/2019 Climacteric 01/13/2010 08/07/2016 Disorders of bursae and tend ons in shoulder region, unspecified 02/26/2009 12/07/2015 Contact dermatitis and other eczema due to other specified agent 02/03/2009 12/07/2015 Cervicalgia 07/26/2008 09/21/2019 Pain in joint, shoulder region 07/26/2008 0 03/18/2017 Contact dermatitis and other eczema, due to unspecified cause 02/05/2008 12/07/2015 Adjustment disorder with depressed mood 05/20/20 06 09/21/2019 documented as of this encounter (statuses as of 07/09/2022) [facility]2017 History of Past illness Narrative* Problem Noted Date Resolved Date Carpal tunnel syndrome, right 01/03/2017 Median nerve entrapment 10/10/2016 09/21/19 20 Nocturnal muscle cramps 09/11/2016 09/21/19 20 HSV (herpes simplex virus) anogenital infection 02/08/2016 09/21/2019 Chest pain, atypical 12/15/2013 04/28/2014 SOB (shortness of breath) 12/15/20132013 Epidural abscess 09/16/2013 04/28/2014 Lung mass 09/07/2011 09/21/2019 Climacteric 01/13/2010 08/07/2016 Disorders of bursae and tend ons in shoulder region, unspecified 02/26/2009 12/07/2015 Contact dermatitis and other eczema due to other specified agent 02/03/2009 12/07/2015 Cervicalgia 07/26/2008 09/21/2019 Pain in joint, shoulder region 07/26/2008 0 03/18/2017 Contact dermatitis and other eczema, due to unspecified cause 02/05/2008 12/07/2015 Adjustment disorder with depressed mood 05/20/20 06 09/21/2019 documented as of this encounter (statuses as of 07/09/2022) [facility] History of Past illness Narrative* Problem Noted Date Resolved Date Carpal tunnel syndrome, right 01/03/2017 Median nerve entrapment 10/10/2016 09/21/19 20 Nocturnal muscle cramps 09/11/2016 09/21/19 20 HSV (herpes simplex virus) anogenital infection 02/08/2016 09/21/2019 Chest pain, atypical 12/15/2013 04/28/2014 SOB (shortness of breath) 12/15/20132013 Epidural abscess 09/16/2013 04/28/2014 Lung mass 09/07/2011 09/21/2019 Climacteric 01/13/2010 08/07/2016 Disorders of bursae and tend ons in shoulder region, unspecified 02/26/2009 12/07/2015 Contact dermatitis and other eczema due to other specified agent 02/03/2009 12/07/2015 Cervicalgia 07/26/2008 09/21/2019 Pain in joint, shoulder region 07/26/2008 0 03/18/2017 Contact dermatitis and other eczema, due to unspecified cause 02/05/2008 12/07/2015 Adjustment disorder with depressed mood 05/20/2009/21/2019 documented as of this encounter (statuses as of 07/09/2022) [facility] History of Past illness Narrative* Problem Noted Date Resolved Date Carpal tunnel syndrome, right 01/03/2017 Median nerve entrapment 10/10/2016 09/21/19 20 Nocturnal muscle cramps 09/11/2016 09/21/19 20 HSV (herpes simplex virus) anogenital infection 02/08/2016 09/21/2019 Chest pain, atypical 12/15/2013 04/28/2014 SOB (shortness of breath) 12/15/20132013 Epidural abscess 09/16/2013 04/28/2014 Lung mass 09/07/2011 09/21/2019 Climacteric 01/13/2010 08/07/2016 Disorders of bursae and tend ons in shoulder region, unspecified 02/26/2009 12/07/2015 Contact dermatitis and other eczema due to other specified agent 02/03/2009 12/07/2015 Cervicalgia 07/26/2008 09/21/2019 Pain in joint, shoulder region 07/26/2008 0 03/18/2017 Contact dermatitis and other eczema, due to unspecified cause 02/05/2008 12/07/2015 Adjustment disorder with depressed mood 05/20/20 06 09/21/2019 documented as of this encounter (statuses as of 07/23/2022) [facility] History of Past illness Narrative* Problem Noted Date Resolved Date Carpal tunnel syndrome, right 01/03/2017 Median nerve entrapment 10/10/2016 09/21/19 20 Nocturnal muscle cramps 09/11/2016 09/21/19 20 HSV (herpes simplex virus) anogenital infection 02/08/2016 09/21/2019 Chest pain, atypical 12/15/2013 04/28/2014 SOB (shortness of breath) 12/15/20132013 Epidural abscess 09/16/2013 04/28/2014 Lung mass 09/07/2011 09/21/2019 Climacteric 01/13/2010 08/07/2016 Disorders of bursae and tend ons in shoulder region, unspecified 02/26/2009 12/07/2015 Contact dermatitis and other eczema due to other specified agent 02/03/2009 12/07/2015 Cervicalgia 07/26/2008 09/21/2019 Pain in joint, shoulder region 07/26/2008 0 03/18/2017 Contact dermatitis and other eczema, due to unspecified cause 02/05/2008 12/07/2015 Adjustment disorder with depressed mood 05/20/2009/21/2019 documented as of this encounter (statuses as of 07/31/2022) [facility] History of Past illness Narrative* Problem Noted Date Resolved Date Carpal tunnel syndrome, right 01/03/2017 Median nerve entrapment 10/10/2016 09/21/19 20 Nocturnal muscle cramps 09/11/2016 09/21/19 20 HSV (herpes simplex virus) anogenital infection 02/08/2016 09/21/2019 Chest pain, atypical 12/15/2013 04/28/2014 SOB (shortness of breath) 12/15/20132013 Epidural abscess 09/16/2013 04/28/2014 Lung mass 09/07/2011 09/21/2019 Climacteric 01/13/2010 08/07/2016 Disorders of bursae and tend ons in shoulder region, unspecified 02/26/2009 12/07/2015 Contact dermatitis and other eczema due to other specified agent 02/03/2009 12/07/2015 Cervicalgia 07/26/2008 09/21/2019 Pain in joint, shoulder region 07/26/2008 0 03/18/2017 Contact dermatitis and other eczema, due to unspecified cause 02/05/2008 12/07/2015 Adjustment disorder with depressed mood 05/20/20 06 09/21/2019 documented as of this encounter (statuses as of 08/03/2022) [facility] History of Past illness Narrative* Problem Noted Date Resolved Date Carpal tunnel syndrome, right 01/03/2017 Median nerve entrapment 10/10/2016 09/21/19 20 Nocturnal muscle cramps 09/11/2016 09/21/19 20 HSV (herpes simplex virus) anogenital infection 02/08/2016 09/21/2019 Chest pain, atypical 12/15/2013 04/28/2014 SOB (shortness of breath) 12/15/20132013 Epidural abscess 09/16/2013 04/28/2014 Lung mass 09/07/2011 09/21/2019 Climacteric 01/13/2010 08/07/2016 Disorders of bursae and tend ons in shoulder region, unspecified 02/26/2009 12/07/2015 Contact dermatitis and other eczema due to other specified agent 02/03/2009 12/07/2015 Cervicalgia 07/26/2008 09/21/2019 Pain in joint, shoulder region 07/26/2008 0 03/18/2017 Contact dermatitis and other eczema, due to unspecified cause 02/05/2008 12/07/2015 Adjustment disorder with depressed mood 05/20/2009/21/2019 documented as of this encounter (statuses as of 08/14/2022) [facility] History of Past illness Narrative* Problem Noted Date Resolved Date Carpal tunnel syndrome, right 01/03/2017 Median nerve entrapment 10/10/2016 09/21/19 20 Nocturnal muscle cramps 09/11/2016 09/21/19 20 HSV (herpes simplex virus) anogenital infection 02/08/2016 09/21/2019 Chest pain, atypical 12/15/2013 04/28/2014 SOB (shortness of breath) 12/15/20132013 Epidural abscess 09/16/2013 04/28/2014 Lung mass 09/07/2011 09/21/2019 Climacteric 01/13/2010 08/07/2016 Disorders of bursae and tend ons in shoulder region, unspecified 02/26/2009 12/07/2015 Contact dermatitis and other eczema due to other specified agent 02/03/2009 12/07/2015 Cervicalgia 07/26/2008 09/21/2019 Pain in joint, shoulder region 07/26/2008 0 03/18/2017 Contact dermatitis and other eczema, due to unspecified cause 02/05/2008 12/07/2015 Adjustment disorder with depressed mood 05/20/20 06 09/21/2019 documented as of this encounter (statuses as of 08/17/2022) [facility] History of Past illness Narrative* Problem Noted Date Resolved Date Carpal tunnel syndrome, right 01/03/2017 Median nerve entrapment 10/10/2016 09/21/19 20 Nocturnal muscle cramps 09/11/2016 09/21/19 20 HSV (herpes simplex virus) anogenital infection 02/08/2016 09/21/2019 Chest pain, atypical 12/15/2013 04/28/2014 SOB (shortness of breath) 12/15/20132013 Epidural abscess 09/16/2013 04/28/2014 Lung mass 09/07/2011 09/21/2019 Climacteric 01/13/2010 08/07/2016 Disorders of bursae and tend ons in shoulder region, unspecified 02/26/2009 12/07/2015 Contact dermatitis and other eczema due to other specified agent 02/03/2009 12/07/2015 Cervicalgia 07/26/2008 09/21/2019 Pain in joint, shoulder region 07/26/2008 0 03/18/2017 Contact dermatitis and other eczema, due to unspecified cause 02/05/2008 12/07/2015 Adjustment disorder with depressed mood 05/20/20 06 09/21/2019 documented as of this encounter (statuses as of 09/04/2022) [facility] History of Past illness Narrative* Problem Noted Date Resolved Date Carpal tunnel syndrome, right 01/03/2017 Median nerve entrapment 10/10/2016 09/21/19 20 Nocturnal muscle cramps 09/11/2016 09/21/19 20 HSV (herpes simplex virus) anogenital infection 02/08/2016 09/21/2019 Chest pain, atypical 12/15/2013 04/28/2014 SOB (shortness of breath) 12/15/20132013 Epidural abscess 09/16/2013 04/28/2014 Lung mass 09/07/2011 09/21/2019 Climacteric 01/13/2010 08/07/2016 Disorders of bursae and tend ons in shoulder region, unspecified 02/26/2009 12/07/2015 Contact dermatitis and other eczema due to other specified agent 02/03/2009 12/07/2015 Cervicalgia 07/26/2008 09/21/2019 Pain in joint, shoulder region 07/26/2008 0 03/18/2017 Contact dermatitis and other eczema, due to unspecified cause 02/05/2008 12/07/2015 Adjustment disorder with depressed mood 05/20/20 06 09/21/2019 documented as of this encounter (statuses as of 09/12/2022) [facility] History of Past illness Narrative* Problem Noted Date Resolved Date Carpal tunnel syndrome, right 01/03/2017 Median nerve entrapment 10/10/2016 09/21/19 20 Nocturnal muscle cramps 09/11/2016 09/21/19 20 HSV (herpes simplex virus) anogenital infection 02/08/2016 09/21/2019 Chest pain, atypical 12/15/2013 04/28/2014 SOB (shortness of breath) 12/15/20132013 Epidural abscess 09/16/2013 04/28/2014 Lung mass 09/07/2011 09/21/2019 Climacteric 01/13/2010 08/07/2016 Disorders of bursae and tend ons in shoulder region, unspecified 02/26/2009 12/07/2015 Contact dermatitis and other eczema due to other specified agent 02/03/2009 12/07/2015 Cervicalgia 07/26/2008 09/21/2019 Pain in joint, shoulder region 07/26/2008 0 03/18/2017 Contact dermatitis and other eczema, due to unspecified cause 02/05/2008 12/07/2015 Adjustment disorder with depressed mood 05/20/20 06 09/21/2019 documented as of this encounter (statuses as of 09/17/2022) [facility] History of Past illness Narrative* Problem Noted Date Resolved Date Carpal tunnel syndrome, right 01/03/2017 Median nerve entrapment 10/10/2016 09/21/19 20 Nocturnal muscle cramps 09/11/2016 09/21/19 20 HSV (herpes simplex virus) anogenital infection 02/08/2016 09/21/2019 Chest pain, atypical 12/15/2013 04/28/2014 SOB (shortness of breath) 12/15/20132013 Epidural abscess 09/16/2013 04/28/2014 Lung mass 09/07/2011 09/21/2019 Climacteric 01/13/2010 08/07/2016 Disorders of bursae and tend ons in shoulder region, unspecified 02/26/2009 12/07/2015 Contact dermatitis and other eczema due to other specified agent 02/03/2009 12/07/2015 Cervicalgia 07/26/2008 09/21/2019 Pain in joint, shoulder region 07/26/2008 0 03/18/2017 Contact dermatitis and other eczema, due to unspecified cause 02/05/2008 12/07/2015 Adjustment disorder with depressed mood 05/20/2009/21/2019 documented as of this encounter (statuses as of 09/27/2022) [facility]05-[facility]-2017 History of Past illness Narrative* Problem Noted Date Resolved Date Carpal tunnel syndrome, right 01/03/2017 Median nerve entrapment 10/10/2016 09/21/19 20 Nocturnal muscle cramps 09/11/2016 09/21/19 20 HSV (herpes simplex virus) anogenital infection 02/08/2016 09/21/2019 Chest pain, atypical 12/15/2013 04/28/2014 SOB (shortness of breath) 12/15/20132013 Epidural abscess 09/16/2013 04/28/2014 Lung mass 09/07/2011 09/21/2019 Climacteric 01/13/2010 08/07/2016 Disorders of bursae and tend ons in shoulder region, unspecified 02/26/2009 12/07/2015 Contact dermatitis and other eczema due to other specified agent 02/03/2009 12/07/2015 Cervicalgia 07/26/2008 09/21/2019 Pain in joint, shoulder region 07/26/2008 0 03/18/2017 Contact dermatitis and other eczema, due to unspecified cause 02/05/2008 12/07/2015 Adjustment disorder with depressed mood 05/20/2009/21/2019 documented as of this encounter (statuses as of 11/06/2022) [facility]2017 History of Past illness Narrative* Problem Noted Date Resolved Date Carpal tunnel syndrome, right 01/03/2017 Median nerve entrapment 10/10/2016 09/21/19 20 Nocturnal muscle cramps 09/11/2016 09/21/19 20 HSV (herpes simplex virus) anogenital infection 02/08/2016 09/21/2019 Chest pain, atypical 12/15/2013 04/28/2014 SOB (shortness of breath) 12/15/20132013 Epidural abscess 09/16/2013 04/28/2014 Lung mass 09/07/2011 09/21/2019 Climacteric 01/13/2010 08/07/2016 Disorders of bursae and tend ons in shoulder region, unspecified 02/26/2009 12/07/2015 Contact dermatitis and other eczema due to other specified agent 02/03/2009 12/07/2015 Cervicalgia 07/26/2008 09/21/2019 Pain in joint, shoulder region 07/26/2008 0 03/18/2017 Contact dermatitis and other eczema, due to unspecified cause 02/05/2008 12/07/2015 Adjustment disorder with depressed mood 05/20/2009/21/2019 documented as of this encounter (statuses as of 11/12/2022) [facility] History of Past illness Narrative* Problem Noted Date Resolved Date Carpal tunnel syndrome, right 01/03/2017 Median nerve entrapment 10/10/2016 09/21/19 20 Nocturnal muscle cramps 09/11/2016 09/21/19 20 HSV (herpes simplex virus) anogenital infection 02/08/2016 09/21/2019 Chest pain, atypical 12/15/2013 04/28/2014 SOB (shortness of breath) 12/15/20132013 Epidural abscess 09/16/2013 04/28/2014 Lung mass 09/07/2011 09/21/2019 Climacteric 01/13/2010 08/07/2016 Disorders of bursae and tend ons in shoulder region, unspecified 02/26/2009 12/07/2015 Contact dermatitis and other eczema due to other specified agent 02/03/2009 12/07/2015 Cervicalgia 07/26/2008 09/21/2019 Pain in joint, shoulder region 07/26/2008 0 03/18/2017 Contact dermatitis and other eczema, due to unspecified cause 02/05/2008 12/07/2015 Adjustment disorder with depressed mood 05/20/20 06 09/21/2019 documented as of this encounter (statuses as of 11/19/2022) [facility] History of Past illness Narrative* Problem Noted Date Resolved Date Carpal tunnel syndrome, right 01/03/2017 Median nerve entrapment 10/10/2016 09/21/19 20 Nocturnal muscle cramps 09/11/2016 09/21/19 20 HSV (herpes simplex virus) anogenital infection 02/08/2016 09/21/2019 Chest pain, atypical 12/15/2013 04/28/2014 SOB (shortness of breath) 12/15/20132013 Epidural abscess 09/16/2013 04/28/2014 Lung mass 09/07/2011 09/21/2019 Climacteric 01/13/2010 08/07/2016 Disorders of bursae and tend ons in shoulder region, unspecified 02/26/2009 12/07/2015 Contact dermatitis and other eczema due to other specified agent 02/03/2009 12/07/2015 Cervicalgia 07/26/2008 09/21/2019 Pain in joint, shoulder region 07/26/2008 0 03/18/2017 Contact dermatitis and other eczema, due to unspecified cause 02/05/2008 12/07/2015 Adjustment disorder with depressed mood 05/20/20 06 09/21/2019 documented as of this encounter (statuses as of 11/19/2022) [facility] History of Past illness Narrative* Problem Noted Date Resolved Date Carpal tunnel syndrome, right 01/03/2017 Median nerve entrapment 10/10/2016 09/21/19 20 Nocturnal muscle cramps 09/11/2016 09/21/19 20 HSV (herpes simplex virus) anogenital infection 02/08/2016 09/21/2019 Chest pain, atypical 12/15/2013 04/28/2014 SOB (shortness of breath) 12/15/20132013 Epidural abscess 09/16/2013 04/28/2014 Lung mass 09/07/2011 09/21/2019 Climacteric 01/13/2010 08/07/2016 Disorders of bursae and tend ons in shoulder region, unspecified 02/26/2009 12/07/2015 Contact dermatitis and other eczema due to other specified agent 02/03/2009 12/07/2015 Cervicalgia 07/26/2008 09/21/2019 Pain in joint, shoulder region 07/26/2008 0 03/18/2017 Contact dermatitis and other eczema, due to unspecified cause 02/05/2008 12/07/2015 Adjustment disorder with depressed mood 05/20/20 06 09/21/2019 documented as of this encounter (statuses as of 11/20/2022) [facility] History of Past illness Narrative* Problem Noted Date Resolved Date Carpal tunnel syndrome, right 01/03/2017 Median nerve entrapment 10/10/2016 09/21/19 20 Nocturnal muscle cramps 09/11/2016 09/21/19 20 HSV (herpes simplex virus) anogenital infection 02/08/2016 09/21/2019 Chest pain, atypical 12/15/2013 04/28/2014 SOB (shortness of breath) 12/15/20132013 Epidural abscess 09/16/2013 04/28/2014 Lung mass 09/07/2011 09/21/2019 Climacteric 01/13/2010 08/07/2016 Disorders of bursae and tend ons in shoulder region, unspecified 02/26/2009 12/07/2015 Contact dermatitis and other eczema due to other specified agent 02/03/2009 12/07/2015 Cervicalgia 07/26/2008 09/21/2019 Pain in joint, shoulder region 07/26/2008 0 03/18/2017 Contact dermatitis and other eczema, due to unspecified cause 02/05/2008 12/07/2015 Adjustment disorder with depressed mood 05/20/20 06 09/21/2019 documented as of this encounter (statuses as of 12/05/2022) [facility] History of Past illness Narrative* Problem Noted Date Resolved Date Carpal tunnel syndrome, right 01/03/2017 Median nerve entrapment 10/10/2016 09/21/19 20 Nocturnal muscle cramps 09/11/2016 09/21/19 20 HSV (herpes simplex virus) anogenital infection 02/08/2016 09/21/2019 Chest pain, atypical 12/15/2013 04/28/2014 SOB (shortness of breath) 12/15/20132013 Epidural abscess 09/16/2013 04/28/2014 Lung mass 09/07/2011 09/21/2019 Climacteric 01/13/2010 08/07/2016 Disorders of bursae and tend ons in shoulder region, unspecified 02/26/2009 12/07/2015 Contact dermatitis and other eczema due to other specified agent 02/03/2009 12/07/2015 Cervicalgia 07/26/2008 09/21/2019 Pain in joint, shoulder region 07/26/2008 0 03/18/2017 Contact dermatitis and other eczema, due to unspecified cause 02/05/2008 12/07/2015 Adjustment disorder with depressed mood 05/20/20 06 09/21/2019 documented as of this encounter (statuses as of 12/06/2022) [facility] History of Past illness Narrative* Problem Noted Date Resolved Date Carpal tunnel syndrome, right 01/03/2017 Median nerve entrapment 10/10/2016 09/21/19 20 Nocturnal muscle cramps 09/11/2016 09/21/19 20 HSV (herpes simplex virus) anogenital infection 02/08/2016 09/21/2019 Chest pain, atypical 12/15/2013 04/28/2014 SOB (shortness of breath) 12/15/20132013 Epidural abscess 09/16/2013 04/28/2014 Lung mass 09/07/2011 09/21/2019 Climacteric 01/13/2010 08/07/2016 Disorders of bursae and tend ons in shoulder region, unspecified 02/26/2009 12/07/2015 Contact dermatitis and other eczema due to other specified agent 02/03/2009 12/07/2015 Cervicalgia 07/26/2008 09/21/2019 Pain in joint, shoulder region 07/26/2008 0 03/18/2017 Contact dermatitis and other eczema, due to unspecified cause 02/05/2008 12/07/2015 Adjustment disorder with depressed mood 05/20/20 06 09/21/2019 documented as of this encounter (statuses as of 12/07/2022) [facility] History of Past illness Narrative* Problem Noted Date Resolved Date Carpal tunnel syndrome, right 01/03/2017 Median nerve entrapment 10/10/2016 09/21/19 20 Nocturnal muscle cramps 09/11/2016 09/21/19 20 HSV (herpes simplex virus) anogenital infection 02/08/2016 09/21/2019 Chest pain, atypical 12/15/2013 04/28/2014 SOB (shortness of breath) 12/15/20132013 Epidural abscess 09/16/2013 04/28/2014 Lung mass 09/07/2011 09/21/2019 Climacteric 01/13/2010 08/07/2016 Disorders of bursae and tend ons in shoulder region, unspecified 02/26/2009 12/07/2015 Contact dermatitis and other eczema due to other specified agent 02/03/2009 12/07/2015 Cervicalgia 07/26/2008 09/21/2019 Pain in joint, shoulder region 07/26/2008 0 03/18/2017 Contact dermatitis and other eczema, due to unspecified cause 02/05/2008 12/07/2015 Adjustment disorder with depressed mood 05/20/20 06 09/21/2019 documented as of this encounter (statuses as of 01/01/2023) [facility] History of Past illness Narrative* Problem Noted Date Resolved Date Carpal tunnel syndrome, right 01/03/2017 Median nerve entrapment 10/10/2016 09/21/19 20 Nocturnal muscle cramps 09/11/2016 09/21/19 20 HSV (herpes simplex virus) anogenital infection 02/08/2016 09/21/2019 Chest pain, atypical 12/15/2013 04/28/2014 SOB (shortness of breath) 12/15/20132013 Epidural abscess 09/16/2013 04/28/2014 Lung mass 09/07/2011 09/21/2019 Climacteric 01/13/2010 08/07/2016 Disorders of bursae and tend ons in shoulder region, unspecified 02/26/2009 12/07/2015 Contact dermatitis and other eczema due to other specified agent 02/03/2009 12/07/2015 Cervicalgia 07/26/2008 09/21/2019 Pain in joint, shoulder region 07/26/2008 0 03/18/2017 Contact dermatitis and other eczema, due to unspecified cause 02/05/2008 12/07/2015 Adjustment disorder with depressed mood 05/20/20 06 09/21/2019 documented as of this encounter (statuses as of 01/07/2023) [facility] History of Past illness Narrative* Problem Noted Date Resolved Date Carpal tunnel syndrome, right 01/03/2017 Median nerve entrapment 10/10/2016 09/21/19 20 Nocturnal muscle cramps 09/11/2016 09/21/19 20 HSV (herpes simplex virus) anogenital infection 02/08/2016 09/21/2019 Chest pain, atypical 12/15/2013 04/28/2014 SOB (shortness of breath) 12/15/20132013 Epidural abscess 09/16/2013 04/28/2014 Lung mass 09/07/2011 09/21/2019 Climacteric 01/13/2010 08/07/2016 Disorders of bursae and tend ons in shoulder region, unspecified 02/26/2009 12/07/2015 Contact dermatitis and other eczema due to other specified agent 02/03/2009 12/07/2015 Cervicalgia 07/26/2008 09/21/2019 Pain in joint, shoulder region 07/26/2008 0 03/18/2017 Contact dermatitis and other eczema, due to unspecified cause 02/05/2008 12/07/2015 Adjustment disorder with depressed mood 05/20/2009/21/2019 documented as of this encounter (statuses as of 02/15/2023) [facility]2017 History of Past illness Narrative* Problem Noted Date Resolved Date Carpal tunnel syndrome, right 01/03/2017 Median nerve entrapment 10/10/2016 09/21/19 20 Nocturnal muscle cramps 09/11/2016 09/21/19 20 HSV (herpes simplex virus) anogenital infection 02/08/2016 09/21/2019 Chest pain, atypical 12/15/2013 04/28/2014 SOB (shortness of breath) 12/15/20132013 Epidural abscess 09/16/2013 04/28/2014 Lung mass 09/07/2011 09/21/2019 Climacteric 01/13/2010 08/07/2016 Disorders of bursae and tend ons in shoulder region, unspecified 02/26/2009 12/07/2015 Contact dermatitis and other eczema due to other specified agent 02/03/2009 12/07/2015 Cervicalgia 07/26/2008 09/21/2019 Pain in joint, shoulder region 07/26/2008 0 03/18/2017 Contact dermatitis and other eczema, due to unspecified cause 02/05/2008 12/07/2015 Adjustment disorder with depressed mood 05/20/20 06 09/21/2019 documented as of this encounter (statuses as of 02/20/2023) [facility] History of Past illness Narrative* Problem Noted Date Resolved Date Carpal tunnel syndrome, right 01/03/2017 Median nerve entrapment 10/10/2016 09/21/19 20 Nocturnal muscle cramps 09/11/2016 09/21/19 20 HSV (herpes simplex virus) anogenital infection 02/08/2016 09/21/2019 Chest pain, atypical 12/15/2013 04/28/2014 SOB (shortness of breath) 12/15/20132013 Epidural abscess 09/16/2013 04/28/2014 Lung mass 09/07/2011 09/21/2019 Climacteric 01/13/2010 08/07/2016 Disorders of bursae and tend ons in shoulder region, unspecified 02/26/2009 12/07/2015 Contact dermatitis and other eczema due to other specified agent 02/03/2009 12/07/2015 Cervicalgia 07/26/2008 09/21/2019 Pain in joint, shoulder region 07/26/2008 0 03/18/2017 Contact dermatitis and other eczema, due to unspecified cause 02/05/2008 12/07/2015 Adjustment disorder with depressed mood 05/20/20 06 09/21/2019 documented as of this encounter (statuses as of 02/21/2023) [facility] History of Past illness Narrative* Problem Noted Date Resolved Date Carpal tunnel syndrome, right 01/03/2017 Median nerve entrapment 10/10/2016 09/21/19 20 Nocturnal muscle cramps 09/11/2016 09/21/19 20 HSV (herpes simplex virus) anogenital infection 02/08/2016 09/21/2019 Chest pain, atypical 12/15/2013 04/28/2014 SOB (shortness of breath) 12/15/20132013 Epidural abscess 09/16/2013 04/28/2014 Lung mass 09/07/2011 09/21/2019 Climacteric 01/13/2010 08/07/2016 Disorders of bursae and tend ons in shoulder region, unspecified 02/26/2009 12/07/2015 Contact dermatitis and other eczema due to other specified agent 02/03/2009 12/07/2015 Cervicalgia 07/26/2008 09/21/2019 Pain in joint, shoulder region 07/26/2008 0 03/18/2017 Contact dermatitis and other eczema, due to unspecified cause 02/05/2008 12/07/2015 Adjustment disorder with depressed mood 05/20/20 06 09/21/2019 documented as of this encounter (statuses as of 02/26/2023) [facility] History of Past illness Narrative* Problem Noted Date Resolved Date Carpal tunnel syndrome, right 01/03/2017 Median nerve entrapment 10/10/2016 09/21/19 20 Nocturnal muscle cramps 09/11/2016 09/21/19 20 HSV (herpes simplex virus) anogenital infection 02/08/2016 09/21/2019 Chest pain, atypical 12/15/2013 04/28/2014 SOB (shortness of breath) 12/15/20132013 Epidural abscess 09/16/2013 04/28/2014 Lung mass 09/07/2011 09/21/2019 Climacteric 01/13/2010 08/07/2016 Disorders of bursae and tend ons in shoulder region, unspecified 02/26/2009 12/07/2015 Contact dermatitis and other eczema due to other specified agent 02/03/2009 12/07/2015 Cervicalgia 07/26/2008 09/21/2019 Pain in joint, shoulder region 07/26/2008 0 03/18/2017 Contact dermatitis and other eczema, due to unspecified cause 02/05/2008 12/07/2015 Adjustment disorder with depressed mood 05/20/20 06 09/21/2019 documented as of this encounter (statuses as of 02/27/2023) [facility] History of Past illness Narrative* Problem Noted Date Resolved Date Carpal tunnel syndrome, right 01/03/2017 Median nerve entrapment 10/10/2016 09/21/19 20 Nocturnal muscle cramps 09/11/2016 09/21/19 20 HSV (herpes simplex virus) anogenital infection 02/08/2016 09/21/2019 Chest pain, atypical 12/15/2013 04/28/2014 SOB (shortness of breath) 12/15/20132013 Epidural abscess 09/16/2013 04/28/2014 Lung mass 09/07/2011 09/21/2019 Climacteric 01/13/2010 08/07/2016 Disorders of bursae and tend ons in shoulder region, unspecified 02/26/2009 12/07/2015 Contact dermatitis and other eczema due to other specified agent 02/03/2009 12/07/2015 Cervicalgia 07/26/2008 09/21/2019 Pain in joint, shoulder region 07/26/2008 0 03/18/2017 Contact dermatitis and other eczema, due to unspecified cause 02/05/2008 12/07/2015 Adjustment disorder with depressed mood 05/20/20 06 09/21/2019 documented as of this encounter (statuses as of 02/27/2023) [facility] History of Past illness Narrative* Problem Noted Date Resolved Date Carpal tunnel syndrome, right 01/03/2017 Median nerve entrapment 10/10/2016 09/21/19 20 Nocturnal muscle cramps 09/11/2016 09/21/19 20 HSV (herpes simplex virus) anogenital infection 02/08/2016 09/21/2019 Chest pain, atypical 12/15/2013 04/28/2014 SOB (shortness of breath) 12/15/20132013 Epidural abscess 09/16/2013 04/28/2014 Lung mass 09/07/2011 09/21/2019 Climacteric 01/13/2010 08/07/2016 Disorders of bursae and tend ons in shoulder region, unspecified 02/26/2009 12/07/2015 Contact dermatitis and other eczema due to other specified agent 02/03/2009 12/07/2015 Cervicalgia 07/26/2008 09/21/2019 Pain in joint, shoulder region 07/26/2008 0 03/18/2017 Contact dermatitis and other eczema, due to unspecified cause 02/05/2008 12/07/2015 Adjustment disorder with depressed mood 05/20/20 06 09/21/2019 documented as of this encounter (statuses as of 03/01/2023) [facility] History of Past illness Narrative* Problem Noted Date Resolved Date Carpal tunnel syndrome, right 01/03/2017 Median nerve entrapment 10/10/2016 09/21/19 20 Nocturnal muscle cramps 09/11/2016 09/21/19 20 HSV (herpes simplex virus) anogenital infection 02/08/2016 09/21/2019 Chest pain, atypical 12/15/2013 04/28/2014 SOB (shortness of breath) 12/15/20132013 Epidural abscess 09/16/2013 04/28/2014 Lung mass 09/07/2011 09/21/2019 Climacteric 01/13/2010 08/07/2016 Disorders of bursae and tend ons in shoulder region, unspecified 02/26/2009 12/07/2015 Contact dermatitis and other eczema due to other specified agent 02/03/2009 12/07/2015 Cervicalgia 07/26/2008 09/21/2019 Pain in joint, shoulder region 07/26/2008 0 03/18/2017 Contact dermatitis and other eczema, due to unspecified cause 02/05/2008 12/07/2015 Adjustment disorder with depressed mood 05/20/2009/21/2019 documented as of this encounter (statuses as of 03/08/2023) [facility] History of Past illness Narrative* Problem Noted Date Diagnosed Date Resolved Date Carpal tunnel syndrome, right 01/03/2017 09/21/2019 Median nerve entrapment 10/10/201609/03 Nocturnal muscle cramps 09/11/201609/03 HSV (herpes simplex virus) a nogenital infection 02/08/2016 09/21/2019 Chest pain, atypical 12/15/2013 014 SOB (shortness of breath) 12/15/2013 Epidural abscess 09/16/2013 04/28/2014 Lung mass 09/07/2011 09/21/2019 Climacteric 01/13/2010 08/07/2016 Disorders of bursae and tend ons in shoulder region, unspecified 02/26/2009 12/07/2015 Contact dermatitis and other eczema due to other specified agent 02/03/2009 12/07/2015 Cervicalgia 07/26/2008 09/21/2019 Pain in joint, shoulder region 07/26/2008 03/18/2017 Contact dermatitis and other eczema, due to unspecified cause 02/05/2008 12/07/2015 Adjustment disorder with depressed mood 05/20/2006 09/21/2019 documented as of this encounter (statuses as of 04/17/2023) [facility] History of Past illness Narrative* Problem Noted Date Diagnosed Date Resolved Date Carpal tunnel syndrome, right 01/03/2017 09/21/2019 Median nerve entrapment 10/10/201609/03 Nocturnal muscle cramps 09/11/201609/03 HSV (herpes simplex virus) a nogenital infection 02/08/2016 09/21/2019 Chest pain, atypical 12/15/2013 014 SOB (shortness of breath) 12/15/2013 Epidural abscess 09/16/2013 04/28/2014 Lung mass 09/07/2011 09/21/2019 Climacteric 01/13/2010 08/07/2016 Disorders of bursae and tend ons in shoulder region, unspecified 02/26/2009 12/07/2015 Contact dermatitis and other eczema due to other specified agent 02/03/2009 12/07/2015 Cervicalgia 07/26/2008 09/21/2019 Pain in joint, shoulder region 07/26/2008 03/18/2017 Contact dermatitis and other eczema, due to unspecified cause 02/05/2008 12/07/2015 Adjustment disorder with depressed mood 05/20/2006 09/21/2019 documented as of this encounter (statuses as of 05/07/2023) [facility] History of Past illness Narrative* Problem Noted Date Diagnosed Date Resolved Date Carpal tunnel syndrome, right 01/03/2017 09/21/2019 Median nerve entrapment 10/10/201609/03 Nocturnal muscle cramps 09/11/201609/03 HSV (herpes simplex virus) a nogenital infection 02/08/2016 09/21/2019 Chest pain, atypical 12/15/2013 014 SOB (shortness of breath) 12/15/2013 Epidural abscess 09/16/2013 04/28/2014 Lung mass 09/07/2011 09/21/2019 Climacteric 01/13/2010 08/07/2016 Disorders of bursae and tend ons in shoulder region, unspecified 02/26/2009 12/07/2015 Contact dermatitis and other eczema due to other specified agent 02/03/2009 12/07/2015 Cervicalgia 07/26/2008 09/21/2019 Pain in joint, shoulder region 07/26/2008 03/18/2017 Contact dermatitis and other eczema, due to unspecified cause 02/05/2008 12/07/2015 Adjustment disorder with depressed mood 05/20/2006 09/21/2019 documented as of this encounter (statuses as of 05/15/2023) [facility] History of Past illness Narrative* Problem Noted Date Diagnosed Date Resolved Date Carpal tunnel syndrome, right 01/03/2017 09/21/2019 Median nerve entrapment 10/10/201609/03 Nocturnal muscle cramps 09/11/201609/03 HSV (herpes simplex virus) a nogenital infection 02/08/2016 09/21/2019 Chest pain, atypical 12/15/2013 014 SOB (shortness of breath) 12/15/2013 Epidural abscess 09/16/2013 04/28/2014 Lung mass 09/07/2011 09/21/2019 Climacteric 01/13/2010 08/07/2016 Disorders of bursae and tend ons in shoulder region, unspecified 02/26/2009 12/07/2015 Contact dermatitis and other eczema due to other specified agent 02/03/2009 12/07/2015 Cervicalgia 07/26/2008 09/21/2019 Pain in joint, shoulder region 07/26/2008 03/18/2017 Contact dermatitis and other eczema, due to unspecified cause 02/05/2008 12/07/2015 Adjustment disorder with depressed mood 05/20/2006 09/21/2019 documented as of this encounter (statuses as of 06/04/2023) [facility] History of Past illness Narrative* Problem Noted Date Diagnosed Date Resolved Date Carpal tunnel syndrome, right 01/03/2017 09/21/2019 Median nerve entrapment 10/10/201609/03 Nocturnal muscle cramps 09/11/201609/03 HSV (herpes simplex virus) a nogenital infection 02/08/2016 09/21/2019 Chest pain, atypical 12/15/2013 014 SOB (shortness of breath) 12/15/2013 Epidural abscess 09/16/2013 04/28/2014 Lung mass 09/07/2011 09/21/2019 Climacteric 01/13/2010 08/07/2016 Disorders of bursae and tend ons in shoulder region, unspecified 02/26/2009 12/07/2015 Contact dermatitis and other eczema due to other specified agent 02/03/2009 12/07/2015 Cervicalgia 07/26/2008 09/21/2019 Pain in joint, shoulder region 07/26/2008 03/18/2017 Contact dermatitis and other eczema, due to unspecified cause 02/05/2008 12/07/2015 Adjustment disorder with depressed mood 05/20/2006 09/21/2019 documented as of this encounter (statuses as of 06/05/2023) [facility] History of Past illness Narrative* Problem Noted Date Diagnosed Date Resolved Date Carpal tunnel syndrome, right 01/03/2017 09/21/2019 Median nerve entrapment 10/10/201609/03 Nocturnal muscle cramps 09/11/201609/03 HSV (herpes simplex virus) a nogenital infection 02/08/2016 09/21/2019 Chest pain, atypical 12/15/2013 014 SOB (shortness of breath) 12/15/2013 Epidural abscess 09/16/2013 04/28/2014 Lung mass 09/07/2011 09/21/2019 Climacteric 01/13/2010 08/07/2016 Disorders of bursae and tend ons in shoulder region, unspecified 02/26/2009 12/07/2015 Contact dermatitis and other eczema due to other specified agent 02/03/2009 12/07/2015 Cervicalgia 07/26/2008 09/21/2019 Pain in joint, shoulder region 07/26/2008 03/18/2017 Contact dermatitis and other eczema, due to unspecified cause 02/05/2008 12/07/2015 Adjustment disorder with depressed mood 05/20/2006 09/21/2019 documented as of this encounter (statuses as of 06/07/2023) [facility] History of Past illness Narrative* Problem Noted Date Diagnosed Date Resolved Date Carpal tunnel syndrome, right 01/03/2017 09/21/2019 Median nerve entrapment 10/10/201609/03 Nocturnal muscle cramps 09/11/201609/03 HSV (herpes simplex virus) a nogenital infection 02/08/2016 09/21/2019 Chest pain, atypical 12/15/2013 014 SOB (shortness of breath) 12/15/2013 Epidural abscess 09/16/2013 04/28/2014 Lung mass 09/07/2011 09/21/2019 Climacteric 01/13/2010 08/07/2016 Disorders of bursae and tend ons in shoulder region, unspecified 02/26/2009 12/07/2015 Contact dermatitis and other eczema due to other specified agent 02/03/2009 12/07/2015 Cervicalgia 07/26/2008 09/21/2019 Pain in joint, shoulder region 07/26/2008 03/18/2017 Contact dermatitis and other eczema, due to unspecified cause 02/05/2008 12/07/2015 Adjustment disorder with depressed mood 05/20/2006 09/21/2019 documented as of this encounter (statuses as of 06/08/2023) [facility]05-[facility]2017 History of Past illness Narrative* Problem Noted Date Diagnosed Date Resolved Date Carpal tunnel syndrome, right 01/03/2017 09/21/2019 Median nerve entrapment 10/10/201609/03 Nocturnal muscle cramps 09/11/201609/03 HSV (herpes simplex virus) a nogenital infection 02/08/2016 09/21/2019 Chest pain, atypical 12/15/2013 014 SOB (shortness of breath) 12/15/2013 Epidural abscess 09/16/2013 04/28/2014 Lung mass 09/07/2011 09/21/2019 Climacteric 01/13/2010 08/07/2016 Disorders of bursae and tend ons in shoulder region, unspecified 02/26/2009 12/07/2015 Contact dermatitis and other eczema due to other specified agent 02/03/2009 12/07/2015 Cervicalgia 07/26/2008 09/21/2019 Pain in joint, shoulder region 07/26/2008 03/18/2017 Contact dermatitis and other eczema, due to unspecified cause 02/05/2008 12/07/2015 Adjustment disorder with depressed mood 05/20/2006 09/21/2019 documented as of this encounter (statuses as of 06/12/2023) [facility]2017 History of Past illness Narrative* Problem Noted Date Diagnosed Date Resolved Date Carpal tunnel syndrome, right 01/03/2017 09/21/2019 Median nerve entrapment 10/10/201609/03 Nocturnal muscle cramps 09/11/201609/03 HSV (herpes simplex virus) a nogenital infection 02/08/2016 09/21/2019 Chest pain, atypical 12/15/2013 014 SOB (shortness of breath) 12/15/2013 Epidural abscess 09/16/2013 04/28/2014 Lung mass 09/07/2011 09/21/2019 Climacteric 01/13/2010 08/07/2016 Disorders of bursae and tend ons in shoulder region, unspecified 02/26/2009 12/07/2015 Contact dermatitis and other eczema due to other specified agent 02/03/2009 12/07/2015 Cervicalgia 07/26/2008 09/21/2019 Pain in joint, shoulder region 07/26/2008 03/18/2017 Contact dermatitis and other eczema, due to unspecified cause 02/05/2008 12/07/2015 Adjustment disorder with depressed mood 05/20/2006 09/21/2019 documented as of this encounter (statuses as of 06/13/2023) [facility] History of Past illness Narrative* Problem Noted Date Diagnosed Date Resolved Date Carpal tunnel syndrome, right 01/03/2017 09/21/2019 Median nerve entrapment 10/10/201609/03 Nocturnal muscle cramps 09/11/201609/03 HSV (herpes simplex virus) a nogenital infection 02/08/2016 09/21/2019 Chest pain, atypical 12/15/2013 014 SOB (shortness of breath) 12/15/2013 Epidural abscess 09/16/2013 04/28/2014 Lung mass 09/07/2011 09/21/2019 Climacteric 01/13/2010 08/07/2016 Disorders of bursae and tend ons in shoulder region, unspecified 02/26/2009 12/07/2015 Contact dermatitis and other eczema due to other specified agent 02/03/2009 12/07/2015 Cervicalgia 07/26/2008 09/21/2019 Pain in joint, shoulder region 07/26/2008 03/18/2017 Contact dermatitis and other eczema, due to unspecified cause 02/05/2008 12/07/2015 Adjustment disorder with depressed mood 05/20/2006 09/21/2019 documented as of this encounter (statuses as of 06/20/2023) [facility] History of Past illness Narrative* Problem Noted Date Diagnosed Date Resolved Date Carpal tunnel syndrome, right 01/03/2017 09/21/2019 Median nerve entrapment 10/10/201609/03 Nocturnal muscle cramps 09/11/201609/03 HSV (herpes simplex virus) a nogenital infection 02/08/2016 09/21/2019 Chest pain, atypical 12/15/2013 014 SOB (shortness of breath) 12/15/2013 Epidural abscess 09/16/2013 04/28/2014 Lung mass 09/07/2011 09/21/2019 Climacteric 01/13/2010 08/07/2016 Disorders of bursae and tend ons in shoulder region, unspecified 02/26/2009 12/07/2015 Contact dermatitis and other eczema due to other specified agent 02/03/2009 12/07/2015 Cervicalgia 07/26/2008 09/21/2019 Pain in joint, shoulder region 07/26/2008 03/18/2017 Contact dermatitis and other eczema, due to unspecified cause 02/05/2008 12/07/2015 Adjustment disorder with depressed mood 05/20/2006 09/21/2019 documented as of this encounter (statuses as of 06/21/2023) [facility] History of Past illness Narrative* Problem Noted Date Diagnosed Date Resolved Date Carpal tunnel syndrome, right 01/03/2017 09/21/2019 Median nerve entrapment 10/10/201609/03 Nocturnal muscle cramps 09/11/201609/03 HSV (herpes simplex virus) a nogenital infection 02/08/2016 09/21/2019 Chest pain, atypical 12/15/2013 014 SOB (shortness of breath) 12/15/2013 Epidural abscess 09/16/2013 04/28/2014 Lung mass 09/07/2011 09/21/2019 Climacteric 01/13/2010 08/07/2016 Disorders of bursae and tend ons in shoulder region, unspecified 02/26/2009 12/07/2015 Contact dermatitis and other eczema due to other specified agent 02/03/2009 12/07/2015 Cervicalgia 07/26/2008 09/21/2019 Pain in joint, shoulder region 07/26/2008 03/18/2017 Contact dermatitis and other eczema, due to unspecified cause 02/05/2008 12/07/2015 Adjustment disorder with depressed mood 05/20/2006 09/21/2019 documented as of this encounter (statuses as of 06/28/2023) [facility] History of Past illness Narrative* Problem Noted Date Diagnosed Date Resolved Date Carpal tunnel syndrome, right 01/03/2017 09/21/2019 Median nerve entrapment 10/10/201609/03 Nocturnal muscle cramps 09/11/201609/03 HSV (herpes simplex virus) a nogenital infection 02/08/2016 09/21/2019 Chest pain, atypical 12/15/2013 014 SOB (shortness of breath) 12/15/2013 Epidural abscess 09/16/2013 04/28/2014 Lung mass 09/07/2011 09/21/2019 Climacteric 01/13/2010 08/07/2016 Disorders of bursae and tend ons in shoulder region, unspecified 02/26/2009 12/07/2015 Contact dermatitis and other eczema due to other specified agent 02/03/2009 12/07/2015 Cervicalgia 07/26/2008 09/21/2019 Pain in joint, shoulder region 07/26/2008 03/18/2017 Contact dermatitis and other eczema, due to unspecified cause 02/05/2008 12/07/2015 Adjustment disorder with depressed mood 05/20/2006 09/21/2019 documented as of this encounter (statuses as of 07/06/2023) [facility] History of Past illness Narrative* Problem Noted Date Diagnosed Date Resolved Date Carpal tunnel syndrome, right 01/03/2017 09/21/2019 Median nerve entrapment 10/10/201609/03 Nocturnal muscle cramps 09/11/201609/03 HSV (herpes simplex virus) a nogenital infection 02/08/2016 09/21/2019 Chest pain, atypical 12/15/2013 014 SOB (shortness of breath) 12/15/2013 Epidural abscess 09/16/2013 04/28/2014 Lung mass 09/07/2011 09/21/2019 Climacteric 01/13/2010 08/07/2016 Disorders of bursae and tend ons in shoulder region, unspecified 02/26/2009 12/07/2015 Contact dermatitis and other eczema due to other specified agent 02/03/2009 12/07/2015 Cervicalgia 07/26/2008 09/21/2019 Pain in joint, shoulder region 07/26/2008 03/18/2017 Contact dermatitis and other eczema, due to unspecified cause 02/05/2008 12/07/2015 Adjustment disorder with depressed mood 05/20/2006 09/21/2019 documented as of this encounter (statuses as of 07/06/2023) [facility]2017 History of Past illness Narrative* Problem Noted Date Diagnosed Date Resolved Date Carpal tunnel syndrome, right 01/03/2017 09/21/2019 Median nerve entrapment 10/10/201609/03 Nocturnal muscle cramps 09/11/201609/03 HSV (herpes simplex virus) a nogenital infection 02/08/2016 09/21/2019 Chest pain, atypical 12/15/2013 014 SOB (shortness of breath) 12/15/2013 Epidural abscess 09/16/2013 04/28/2014 Lung mass 09/07/2011 09/21/2019 Climacteric 01/13/2010 08/07/2016 Disorders of bursae and tend ons in shoulder region, unspecified 02/26/2009 12/07/2015 Contact dermatitis and other eczema due to other specified agent 02/03/2009 12/07/2015 Cervicalgia 07/26/2008 09/21/2019 Pain in joint, shoulder region 07/26/2008 03/18/2017 Contact dermatitis and other eczema, due to unspecified cause 02/05/2008 12/07/2015 Adjustment disorder with depressed mood 05/20/2006 09/21/2019 documented as of this encounter (statuses as of 07/06/2023) [facility] History of Past illness Narrative* Problem Noted Date Diagnosed Date Resolved Date Carpal tunnel syndrome, right 01/03/2017 09/21/2019 Median nerve entrapment 10/10/201609/03 Nocturnal muscle cramps 09/11/201609/03 HSV (herpes simplex virus) a nogenital infection 02/08/2016 09/21/2019 Chest pain, atypical 12/15/2013 014 SOB (shortness of breath) 12/15/2013 Epidural abscess 09/16/2013 04/28/2014 Lung mass 09/07/2011 09/21/2019 Climacteric 01/13/2010 08/07/2016 Disorders of bursae and tend ons in shoulder region, unspecified 02/26/2009 12/07/2015 Contact dermatitis and other eczema due to other specified agent 02/03/2009 12/07/2015 Cervicalgia 07/26/2008 09/21/2019 Pain in joint, shoulder region 07/26/2008 03/18/2017 Contact dermatitis and other eczema, due to unspecified cause 02/05/2008 12/07/2015 Adjustment disorder with depressed mood 05/20/2006 09/21/2019 documented as of this encounter (statuses as of 07/06/2023) [facility] History of Past illness Narrative* Problem Noted Date Diagnosed Date Resolved Date Carpal tunnel syndrome, right 01/03/2017 09/21/2019 Median nerve entrapment 10/10/201609/03 Nocturnal muscle cramps 09/11/201609/03 HSV (herpes simplex virus) a nogenital infection 02/08/2016 09/21/2019 Chest pain, atypical 12/15/2013 014 SOB (shortness of breath) 12/15/2013 Epidural abscess 09/16/2013 04/28/2014 Lung mass 09/07/2011 09/21/2019 Climacteric 01/13/2010 08/07/2016 Disorders of bursae and tend ons in shoulder region, unspecified 02/26/2009 12/07/2015 Contact dermatitis and other eczema due to other specified agent 02/03/2009 12/07/2015 Cervicalgia 07/26/2008 09/21/2019 Pain in joint, shoulder region 07/26/2008 03/18/2017 Contact dermatitis and other eczema, due to unspecified cause 02/05/2008 12/07/2015 Adjustment disorder with depressed mood 05/20/2006 09/21/2019 documented as of this encounter (statuses as of 07/06/2023) [facility] History of Past illness Narrative* Problem Noted Date Diagnosed Date Resolved Date Carpal tunnel syndrome, right 01/03/2017 09/21/2019 Median nerve entrapment 10/10/201609/03 Nocturnal muscle cramps 09/11/201609/03 HSV (herpes simplex virus) a nogenital infection 02/08/2016 09/21/2019 Chest pain, atypical 12/15/2013 014 SOB (shortness of breath) 12/15/2013 Epidural abscess 09/16/2013 04/28/2014 Lung mass 09/07/2011 09/21/2019 Climacteric 01/13/2010 08/07/2016 Disorders of bursae and tend ons in shoulder region, unspecified 02/26/2009 12/07/2015 Contact dermatitis and other eczema due to other specified agent 02/03/2009 12/07/2015 Cervicalgia 07/26/2008 09/21/2019 Pain in joint, shoulder region 07/26/2008 03/18/2017 Contact dermatitis and other eczema, due to unspecified cause 02/05/2008 12/07/2015 Adjustment disorder with depressed mood 05/20/2006 09/21/2019 documented as of this encounter (statuses as of 07/06/2023) [facility] History of Past illness Narrative* Problem Noted Date Diagnosed Date Resolved Date Carpal tunnel syndrome, right 01/03/2017 09/21/2019 Median nerve entrapment 10/10/201609/03 Nocturnal muscle cramps 09/11/201609/03 HSV (herpes simplex virus) a nogenital infection 02/08/2016 09/21/2019 Chest pain, atypical 12/15/2013 014 SOB (shortness of breath) 12/15/2013 Epidural abscess 09/16/2013 04/28/2014 Lung mass 09/07/2011 09/21/2019 Climacteric 01/13/2010 08/07/2016 Disorders of bursae and tend ons in shoulder region, unspecified 02/26/2009 12/07/2015 Contact dermatitis and other eczema due to other specified agent 02/03/2009 12/07/2015 Cervicalgia 07/26/2008 09/21/2019 Pain in joint, shoulder region 07/26/2008 03/18/2017 Contact dermatitis and other eczema, due to unspecified cause 02/05/2008 12/07/2015 Adjustment disorder with depressed mood 05/20/2006 09/21/2019 documented as of this encounter (statuses as of 07/15/2023) [facility] History of Past illness Narrative* Problem Noted Date Diagnosed Date Resolved Date Carpal tunnel syndrome, right 01/03/2017 09/21/2019 Median nerve entrapment 10/10/201609/03 Nocturnal muscle cramps 09/11/201609/03 HSV (herpes simplex virus) a nogenital infection 02/08/2016 09/21/2019 Chest pain, atypical 12/15/2013 014 SOB (shortness of breath) 12/15/2013 Epidural abscess 09/16/2013 04/28/2014 Lung mass 09/07/2011 09/21/2019 Climacteric 01/13/2010 08/07/2016 Disorders of bursae and tend ons in shoulder region, unspecified 02/26/2009 12/07/2015 Contact dermatitis and other eczema due to other specified agent 02/03/2009 12/07/2015 Cervicalgia 07/26/2008 09/21/2019 Pain in joint, shoulder region 07/26/2008 03/18/2017 Contact dermatitis and other eczema, due to unspecified cause 02/05/2008 12/07/2015 Adjustment disorder with depressed mood 05/20/2006 09/21/2019 documented as of this encounter (statuses as of 07/22/2023) [facility] History of Past illness Narrative* Problem Noted Date Diagnosed Date Resolved Date Carpal tunnel syndrome, right 01/03/2017 09/21/2019 Median nerve entrapment 10/10/201609/03 Nocturnal muscle cramps 09/11/201609/03 HSV (herpes simplex virus) a nogenital infection 02/08/2016 09/21/2019 Chest pain, atypical 12/15/2013 014 SOB (shortness of breath) 12/15/2013 Epidural abscess 09/16/2013 04/28/2014 Lung mass 09/07/2011 09/21/2019 Climacteric 01/13/2010 08/07/2016 Disorders of bursae and tend ons in shoulder region, unspecified 02/26/2009 12/07/2015 Contact dermatitis and other eczema due to other specified agent 02/03/2009 12/07/2015 Cervicalgia 07/26/2008 09/21/2019 Pain in joint, shoulder region 07/26/2008 03/18/2017 Contact dermatitis and other eczema, due to unspecified cause 02/05/2008 12/07/2015 Adjustment disorder with depressed mood 05/20/2006 09/21/2019 documented as of this encounter (statuses as of 08/01/2023) [facility]2017 History of Past illness Narrative* Problem Noted Date Diagnosed Date Resolved Date Carpal tunnel syndrome, right 01/03/2017 09/21/2019 Median nerve entrapment 10/10/201609/03 Nocturnal muscle cramps 09/11/201609/03 HSV (herpes simplex virus) a nogenital infection 02/08/2016 09/21/2019 Chest pain, atypical 12/15/2013 014 SOB (shortness of breath) 12/15/2013 Epidural abscess 09/16/2013 04/28/2014 Lung mass 09/07/2011 09/21/2019 Climacteric 01/13/2010 08/07/2016 Disorders of bursae and tend ons in shoulder region, unspecified 02/26/2009 12/07/2015 Contact dermatitis and other eczema due to other specified agent 02/03/2009 12/07/2015 Cervicalgia 07/26/2008 09/21/2019 Pain in joint, shoulder region 07/26/2008 03/18/2017 Contact dermatitis and other eczema, due to unspecified cause 02/05/2008 12/07/2015 Adjustment disorder with depressed mood 05/20/2006 09/21/2019 documented as of this encounter (statuses as of 08/07/2023) [facility] History of Past illness Narrative* Problem Noted Date Diagnosed Date Resolved Date Carpal tunnel syndrome, right 01/03/2017 09/21/2019 Median nerve entrapment 10/10/201609/03 Nocturnal muscle cramps 09/11/201609/03 HSV (herpes simplex virus) a nogenital infection 02/08/2016 09/21/2019 Chest pain, atypical 12/15/2013 014 SOB (shortness of breath) 12/15/2013 Epidural abscess 09/16/2013 04/28/2014 Lung mass 09/07/2011 09/21/2019 Climacteric 01/13/2010 08/07/2016 Disorders of bursae and tend ons in shoulder region, unspecified 02/26/2009 12/07/2015 Contact dermatitis and other eczema due to other specified agent 02/03/2009 12/07/2015 Cervicalgia 07/26/2008 09/21/2019 Pain in joint, shoulder region 07/26/2008 03/18/2017 Contact dermatitis and other eczema, due to unspecified cause 02/05/2008 12/07/2015 Adjustment disorder with depressed mood 05/20/2006 09/21/2019 documented as of this encounter (statuses as of 08/23/2023) [facility] History of Past illness Narrative* Problem Noted Date Diagnosed Date Resolved Date Carpal tunnel syndrome, right 01/03/2017 09/21/2019 Median nerve entrapment 10/10/201609/03 Nocturnal muscle cramps 09/11/201609/03 HSV (herpes simplex virus) a nogenital infection 02/08/2016 09/21/2019 Chest pain, atypical 12/15/2013 014 SOB (shortness of breath) 12/15/2013 Epidural abscess 09/16/2013 04/28/2014 Lung mass 09/07/2011 09/21/2019 Climacteric 01/13/2010 08/07/2016 Disorders of bursae and tend ons in shoulder region, unspecified 02/26/2009 12/07/2015 Contact dermatitis and other eczema due to other specified agent 02/03/2009 12/07/2015 Cervicalgia 07/26/2008 09/21/2019 Pain in joint, shoulder region 07/26/2008 03/18/2017 Contact dermatitis and other eczema, due to unspecified cause 02/05/2008 12/07/2015 Adjustment disorder with depressed mood 05/20/2006 09/21/2019 documented as of this encounter (statuses as of 10/07/2023) [facility] History of Past illness Narrative* Problem Noted Date Diagnosed Date Resolved Date Carpal tunnel syndrome, right 01/03/2017 09/21/2019 Median nerve entrapment 10/10/201609/03 Nocturnal muscle cramps 09/11/201609/03 HSV (herpes simplex virus) a nogenital infection 02/08/2016 09/21/2019 Chest pain, atypical 12/15/2013 014 SOB (shortness of breath) 12/15/2013 Epidural abscess 09/16/2013 04/28/2014 Lung mass 09/07/2011 09/21/2019 Climacteric 01/13/2010 08/07/2016 Disorders of bursae and tend ons in shoulder region, unspecified 02/26/2009 12/07/2015 Contact dermatitis and other eczema due to other specified agent 02/03/2009 12/07/2015 Cervicalgia 07/26/2008 09/21/2019 Pain in joint, shoulder region 07/26/2008 03/18/2017 Contact dermatitis and other eczema, due to unspecified cause 02/05/2008 12/07/2015 Adjustment disorder with depressed mood 05/20/2006 09/21/2019 documented as of this encounter (statuses as of 10/15/2023) [facility] History of Past illness Narrative* Problem Noted Date Diagnosed Date Resolved Date Carpal tunnel syndrome, right 01/03/2017 09/21/2019 Median nerve entrapment 10/10/201609/03 Nocturnal muscle cramps 09/11/201609/03 HSV (herpes simplex virus) a nogenital infection 02/08/2016 09/21/2019 Chest pain, atypical 12/15/2013 014 SOB (shortness of breath) 12/15/2013 Epidural abscess 09/16/2013 04/28/2014 Lung mass 09/07/2011 09/21/2019 Climacteric 01/13/2010 08/07/2016 Disorders of bursae and tend ons in shoulder region, unspecified 02/26/2009 12/07/2015 Contact dermatitis and other eczema due to other specified agent 02/03/2009 12/07/2015 Cervicalgia 07/26/2008 09/21/2019 Pain in joint, shoulder region 07/26/2008 03/18/2017 Contact dermatitis and other eczema, due to unspecified cause 02/05/2008 12/07/2015 Adjustment disorder with depressed mood 05/20/2006 09/21/2019 documented as of this encounter (statuses as of 10/16/2023) [facility] History of Past illness Narrative* Problem Noted Date Diagnosed Date Resolved Date Carpal tunnel syndrome, right 01/03/2017 09/21/2019 Median nerve entrapment 10/10/201609/03 Nocturnal muscle cramps 09/11/201609/03 HSV (herpes simplex virus) a nogenital infection 02/08/2016 09/21/2019 Chest pain, atypical 12/15/2013 014 SOB (shortness of breath) 12/15/2013 Epidural abscess 09/16/2013 04/28/2014 Lung mass 09/07/2011 09/21/2019 Climacteric 01/13/2010 08/07/2016 Disorders of bursae and tend ons in shoulder region, unspecified 02/26/2009 12/07/2015 Contact dermatitis and other eczema due to other specified agent 02/03/2009 12/07/2015 Cervicalgia 07/26/2008 09/21/2019 Pain in joint, shoulder region 07/26/2008 03/18/2017 Contact dermatitis and other eczema, due to unspecified cause 02/05/2008 12/07/2015 Adjustment disorder with depressed mood 05/20/2006 09/21/2019 documented as of this encounter (statuses as of 10/21/2023) [facility] History of Past illness Narrative* Problem Noted Date Diagnosed Date Resolved Date Carpal tunnel syndrome, right 01/03/2017 09/21/2019 Median nerve entrapment 10/10/201609/03 Nocturnal muscle cramps 09/11/201609/03 HSV (herpes simplex virus) a nogenital infection 02/08/2016 09/21/2019 Chest pain, atypical 12/15/2013 014 SOB (shortness of breath) 12/15/2013 Epidural abscess 09/16/2013 04/28/2014 Lung mass 09/07/2011 09/21/2019 Climacteric 01/13/2010 08/07/2016 Disorders of bursae and tend ons in shoulder region, unspecified 02/26/2009 12/07/2015 Contact dermatitis and other eczema due to other specified agent 02/03/2009 12/07/2015 Cervicalgia 07/26/2008 09/21/2019 Pain in joint, shoulder region 07/26/2008 03/18/2017 Contact dermatitis and other eczema, due to unspecified cause 02/05/2008 12/07/2015 Adjustment disorder with depressed mood 05/20/2006 09/21/2019 documented as of this encounter (statuses as of 10/22/2023) [facility] History of Past illness Narrative* Problem Noted Date Diagnosed Date Resolved Date Carpal tunnel syndrome, right 01/03/2017 09/21/2019 Median nerve entrapment 10/10/201609/03 Nocturnal muscle cramps 09/11/201609/03 HSV (herpes simplex virus) a nogenital infection 02/08/2016 09/21/2019 Chest pain, atypical 12/15/2013 014 SOB (shortness of breath) 12/15/2013 Epidural abscess 09/16/2013 04/28/2014 Lung mass 09/07/2011 09/21/2019 Climacteric 01/13/2010 08/07/2016 Disorders of bursae and tend ons in shoulder region, unspecified 02/26/2009 12/07/2015 Contact dermatitis and other eczema due to other specified agent 02/03/2009 12/07/2015 Cervicalgia 07/26/2008 09/21/2019 Pain in joint, shoulder region 07/26/2008 03/18/2017 Contact dermatitis and other eczema, due to unspecified cause 02/05/2008 12/07/2015 Adjustment disorder with depressed mood 05/20/2006 09/21/2019 documented as of this encounter (statuses as of 11/08/2023) [facility] History of Past illness Narrative* Problem Noted Date Diagnosed Date Resolved Date Carpal tunnel syndrome, right 01/03/2017 09/21/2019 Median nerve entrapment 10/10/201609/03 Nocturnal muscle cramps 09/11/201609/03 HSV (herpes simplex virus) a nogenital infection 02/08/2016 09/21/2019 Chest pain, atypical 12/15/2013 014 SOB (shortness of breath) 12/15/2013 Epidural abscess 09/16/2013 04/28/2014 Lung mass 09/07/2011 09/21/2019 Climacteric 01/13/2010 08/07/2016 Disorders of bursae and tend ons in shoulder region, unspecified 02/26/2009 12/07/2015 Contact dermatitis and other eczema due to other specified agent 02/03/2009 12/07/2015 Cervicalgia 07/26/2008 09/21/2019 Pain in joint, shoulder region 07/26/2008 03/18/2017 Contact dermatitis and other eczema, due to unspecified cause 02/05/2008 12/07/2015 Adjustment disorder with depressed mood 05/20/2006 09/21/2019 documented as of this encounter (statuses as of 11/19/2023) [facility] History of Past illness Narrative* Problem Noted Date Diagnosed Date Resolved Date Carpal tunnel syndrome, right 01/03/2017 09/21/2019 Median nerve entrapment 10/10/201609/03 Nocturnal muscle cramps 09/11/201609/03 HSV (herpes simplex virus) a nogenital infection 02/08/2016 09/21/2019 Chest pain, atypical 12/15/2013 014 SOB (shortness of breath) 12/15/2013 Epidural abscess 09/16/2013 04/28/2014 Lung mass 09/07/2011 09/21/2019 Climacteric 01/13/2010 08/07/2016 Disorders of bursae and tend ons in shoulder region, unspecified 02/26/2009 12/07/2015 Contact dermatitis and other eczema due to other specified agent 02/03/2009 12/07/2015 Cervicalgia 07/26/2008 09/21/2019 Pain in joint, shoulder region 07/26/2008 03/18/2017 Contact dermatitis and other eczema, due to unspecified cause 02/05/2008 12/07/2015 Adjustment disorder with depressed mood 05/20/2006 09/21/2019 documented as of this encounter (statuses as of 12/14/2023) [facility] History of Past illness Narrative* Problem Noted Date Diagnosed Date Resolved Date Carpal tunnel syndrome, right 01/03/2017 09/21/2019 Median nerve entrapment 10/10/201609/03 Nocturnal muscle cramps 09/11/201609/03 HSV (herpes simplex virus) a nogenital infection 02/08/2016 09/21/2019 Chest pain, atypical 12/15/2013 014 SOB (shortness of breath) 12/15/2013 Epidural abscess 09/16/2013 04/28/2014 Lung mass 09/07/2011 09/21/2019 Climacteric 01/13/2010 08/07/2016 Disorders of bursae and tend ons in shoulder region, unspecified 02/26/2009 12/07/2015 Contact dermatitis and other eczema due to other specified agent 02/03/2009 12/07/2015 Cervicalgia 07/26/2008 09/21/2019 Pain in joint, shoulder region 07/26/2008 03/18/2017 Contact dermatitis and other eczema, due to unspecified cause 02/05/2008 12/07/2015 Adjustment disorder with depressed mood 05/20/2006 09/21/2019 documented as of this encounter (statuses as of 12/17/2023) [facility]2017 History of Past illness Narrative* Problem Noted Date Diagnosed Date Resolved Date Carpal tunnel syndrome, right 01/03/2017 09/21/2019 Median nerve entrapment 10/10/201609/03 Nocturnal muscle cramps 09/11/201609/03 HSV (herpes simplex virus) a nogenital infection 02/08/2016 09/21/2019 Chest pain, atypical 12/15/2013 014 SOB (shortness of breath) 12/15/2013 Epidural abscess 09/16/2013 04/28/2014 Lung mass 09/07/2011 09/21/2019 Climacteric 01/13/2010 08/07/2016 Disorders of bursae and tend ons in shoulder region, unspecified 02/26/2009 12/07/2015 Contact dermatitis and other eczema due to other specified agent 02/03/2009 12/07/2015 Cervicalgia 07/26/2008 09/21/2019 Pain in joint, shoulder region 07/26/2008 03/18/2017 Contact dermatitis and other eczema, due to unspecified cause 02/05/2008 12/07/2015 Adjustment disorder with depressed mood 05/20/2006 09/21/2019 documented as of this encounter (statuses as of 12/18/2023) [facility]05-[facility]2017 History of Past illness Narrative* Problem Noted Date Diagnosed Date Resolved Date Carpal tunnel syndrome, right 01/03/2017 09/21/2019 Median nerve entrapment 10/10/201609/03 Nocturnal muscle cramps 09/11/201609/03 HSV (herpes simplex virus) a nogenital infection 02/08/2016 09/21/2019 Chest pain, atypical 12/15/2013 014 SOB (shortness of breath) 12/15/2013 Epidural abscess 09/16/2013 04/28/2014 Lung mass 09/07/2011 09/21/2019 Climacteric 01/13/2010 08/07/2016 Disorders of bursae and tend ons in shoulder region, unspecified 02/26/2009 12/07/2015 Contact dermatitis and other eczema due to other specified agent 02/03/2009 12/07/2015 Cervicalgia 07/26/2008 09/21/2019 Pain in joint, shoulder region 07/26/2008 03/18/2017 Contact dermatitis and other eczema, due to unspecified cause 02/05/2008 12/07/2015 Adjustment disorder with depressed mood 05/20/2006 09/21/2019 documented as of this encounter (statuses as of 12/22/2023) [facility] noteNo assessment information availableW[facility] Work Phone: [email or web address] note* Diagnosis Brittle nails- Primary Other specified disease of nail documented [facility] this [facility]* Diagnosis High serum vitamin B12- Primary High vitamin D level Hypervitaminosis D [facility]* Diagnosis Cough- Primary [facility] Diagnosis Coccyx pain- Primary Other disorder of coccyx documented [facility] this [facility]* Diagnosis Onset Date Resolution Status Abdominal pain acute Nausea acute Partial small bowel obstruction [facility] Work Phone: [email or web address] note* Diagnosis Partial intestinal obstruction, unspecified cause (HCC)- Primary Enlarged uterus Hypertrophy of uterus Lower abdominal pain Abdominal pain, other specified site Bruising Contusion of unspecified site [facility]* Diagnosis Enlarged uterus Hypertrophy of uterus Lower abdominal pain Abdominal pain, other specified site [facility]* Diagnosis Uterine leiomyoma, unspecified location- Primary documented [facility] this [facility]* Diagnosis Essential hypertension, benign documented [facility] this [facility]* Diagnosis Onset Date Resolution Status Abdominal pain resolved Nausea resolved Lung nodule acute Nicotine dependence, cigarettes, in remission acute Asthma-COPD overlap syndrome [facility] Work Phone: Evaluation note* Diagnosis Psychophysiological insomnia- Primary Persistent disorder of initiating or maintaining sleep Overactive bladder Hypertonicity of bladder [facility]* Diagnosis Suspected COVID-19 virus infection- Primary documented [facility]* Diagnosis Feeling of chest tightness- Primary Other chest pain Chest heaviness Other chest pain Lab test positive for detection of COVID-19 virus SOB (shortness of breath) Shortness of breath documented in this encounter [facility] note* Diagnosis Encounter for gynecological examination (general) (routine) without abnormal findings- Primary Encounter for screening mammogram for breast cancer [facility] this [facility]* Diagnosis Essential hypertension, benign documented [facility]* Diagnosis Elevated blood sugar- Primary Other abnormal glucose Essential hypertension, benign Multiple thyroid nodules Nontoxic multinodular goiter Medication management Encounter for long-term (current) use of other medications GERD without esophagitis Esophageal reflux documented in this encounter [facility] note* Diagnosis Medicare annual wellness visit, subsequent- Primary Routine general medical examination at a health care facility Essential hypertension, benign Chronic anxiety Anxiety state, unspecified Asthma with COPD with exacerbation (HCC) Chronic obstructive asthma with exacerbation Pulmonary emphysema, unspecified emphysema type (HCC) Elevated blood sugar Other abnormal glucose GERD without esophagitis Esophageal reflux Manic disorder, recurrent episode, moderate (HCC) Manic disorder, recurrent episode, moderate Psychophysiological insomnia Persistent disorder of initiating or maintaining sleep Heavy alcohol use Alcohol abuse, unspecified Arnold-Chiari malformation (HCC) Spina bifida with hydrocephalus, unspecified region Overactive bladder Hypertonicity of bladder Advance directive discussed with patient Other specified counseling Leukocytosis, unspecified type Osteoporosis, unspecified osteoporosis type, unspecified pathological fracture presence [facility] this [facility]* Diagnosis Osteoporosis, unspecified osteoporosis type, unspecified pathological fracture presence- Primary documented in this encounter [facility] note* Diagnosis Weight loss- Primary Loss of weight Ex-smoker Personal history of tobacco use, presenting hazards to health Multiple thyroid nodules Nontoxic multinodular goiter Lung nodules Other nonspecific abnormal finding of lung field Osteoporosis, unspecified osteoporosis type, unspecified pathological fracture presence [facility]* Diagnosis Essential hypertension, benign [facility]* Diagnosis Ex-smoker- Primary Personal history of tobacco use, presenting hazards to health Ectatic thoracic aorta (HCC) Thoracic aortic ectasia Weight loss, unintentional Loss of weight Essential hypertension, benign [facility]* Diagnosis Psychophysiological insomnia- Primary Persistent disorder of initiating or maintaining sleep Runny nose Other diseases of nasal cavity and sinuses New onset of headaches after age 50 Headache Ectatic thoracic aorta (HCC) Thoracic aortic ectasia [facility]* Diagnosis Psychophysiological insomnia- Primary Persistent disorder of initiating or maintaining sleep New onset of headaches after age 50 Headache Essential hypertension, benign Ex-smoker Personal history of tobacco use, presenting hazards to health [facility]* Diagnosis Thrombocytosis- Primary Essential thrombocythemia [facility]* Diagnosis Thrombocytosis- Primary Essential thrombocythemia [facility]* Diagnosis Psychophysiological insomnia Persistent disorder of initiating or maintaining sleep documented [facility]* Diagnosis Elevated blood sugar- Primary Other abnormal glucose Essential hypertension, benign Multiple thyroid nodules Nontoxic multinodular goiter Medication management Encounter for long-term (current) use of other medications GERD without esophagitis Esophageal reflux documented in this encounter [facility] note* Diagnosis Onset Date Resolution Status Vitamin D toxicity acute Osteoporosis chronic Asthma-COPD overlap syndrome chronic Smoking greater than 30 pack years chronic Abdominal pain acute Nausea acute SBO (small bowel obstruction) acute [facility] Work Phone: Evaluation note* Diagnosis Onset Date Resolution Status Vitamin D toxicity acute Osteoporosis chronic Asthma-COPD overlap syndrome chronic Smoking greater than 30 pack years chronic Abdominal pain acute Alcoholism acute Nausea acute SBO (small bowel obstruction) acute [facility] Work Phone: Evaluation note* Diagnosis S/p small bowel obstruction- Primary Personal history of other diseases of digestive system documented [facility] this encounter [facility]* Diagnosis Leukocytosis, unspecified type- Primary [facility]* Diagnosis Bronchitis- Primary Bronchitis, not specified as acute or chronic Asthma with COPD with exacerbation (HCC) Chronic obstructive asthma with exacerbation Suspected COVID-19 virus infection [facility]* Diagnosis Axillary lump, right- Primary documented [facility] this [facility]* Diagnosis S/p small bowel obstruction Personal history of other diseases of digestive system documented [facility] this [facility]* Diagnosis Psychophysiological insomnia Persistent disorder of initiating or maintaining sleep documented [facility] this [facility]* Diagnosis Weight loss Loss of weight Ex-smoker Personal history of tobacco use, presenting hazards to health documented [facility]* Diagnosis Encounter for screening mammogram for malignant neoplasm of breast Other screening mammogram [facility]* Diagnosis Osteoporosis, unspecified osteoporosis type, unspecified pathological fracture presence documented [facility]* Diagnosis New onset of headaches after age 51 Headache [facility]* Diagnosis Weight loss Loss of weight Ex-smoker Personal history of tobacco use, presenting hazards to health Lung nodules Other nonspecific abnormal finding of lung field documented [facility] this [facility]* Diagnosis Chronic bilateral low back pain with sciatica, sciatica laterality unspecified- Primary documented [facility]* Diagnosis Chronic bilateral low back pain with sciatica, sciatica laterality unspecified- Primary documented [facility]* Diagnosis Chronic bilateral low back pain with sciatica, sciatica laterality unspecified- Primary documented [facility]* Diagnosis Essential hypertension, benign Psychophysiological insomnia Persistent disorder of initiating or maintaining sleep documented [facility] this [facility]* Diagnosis Neck pain- Primary Cervicalgia Acute pain of right shoulder [facility]* Diagnosis COPD with exacerbation (HCC)- Primary Obstructive chronic bronchitis with exacerbation [facility]* Diagnosis URI, acute- Primary Acute upper respiratory infections of unspecified site COPD with exacerbation (HCC) Obstructive chronic bronchitis with exacerbation URI, acute Acute upper respiratory infections of unspecified site [facility]* Diagnosis Onset Date Resolution Status Asthma-COPD overlap syndrome chronic Smoking greater than 30 pack years chronic [facility] Work Phone: Evaluation note* Diagnosis Fall, initial encounter- Primary Pain of left clavicle Acute pain of left shoulder Pain of left clavicle Fall, initial encounter Acute pain of left shoulder [facility]* Diagnosis Fall, initial encounter- Primary Acute pain of left shoulder [facility]* Diagnosis Fall (on) (from) other stairs and steps, initial encounter- Primary Rib pain on right side Chest pain, unspecified Fall (on) (from) other stairs and steps, initial encounter Rib pain on right side Chest pain, unspecified [facility]* Diagnosis Fall, initial encounter Acute pain of left shoulder Acute pain of left shoulder- Primary [facility]* Diagnosis Fall, initial encounter Acute pain of left shoulder [facility]* Diagnosis Tendinopathy of rotator cuff, unspecified laterality- Primary [facility]* Diagnosis Pain of left clavicle Fall, initial encounter Acute pain of left shoulder [facility]* Diagnosis Fall (on) (from) other stairs and steps, initial encounter Rib pain on right side Chest pain, unspecified [facility]* Diagnosis URI, acute Acute upper respiratory infections of unspecified site [facility]* Diagnosis Neck pain Cervicalgia Acute pain of right shoulder [facility]* Diagnosis Lumbar radiculopathy Thoracic or lumbosacral neuritis or radiculitis, unspecified Numbness and tingling of both legs Disturbance of skin sensation Acute bilateral low back pain with bilateral sciatica [facility]* Diagnosis Pain Generalized pain [facility]* Diagnosis Feeling of chest tightness Other chest pain [facility]* Diagnosis Coccyx pain Other disorder of coccyx [facility]* Diagnosis Partial intestinal obstruction, unspecified cause (HCC) documented [facility]* Diagnosis Dysuria- Primary [facility] Diagnosis Acute cystitis without hematuria- Primary Acute cystitis documented [facility]* Diagnosis Respiratory infection- Primary Other diseases of respiratory system, not elsewhere classified [facility]* Diagnosis Pneumonia due to COVID-19 virus [facility]* Diagnosis Encounter for screening mammogram for breast cancer [facility]* Diagnosis Acute cough- Primary Bacterial pneumonia Bacterial pneumonia, unspecified Acute cough [facility]* Diagnosis Acute cough [facility]* Diagnosis Left hip pain- Primary Pain in joint, pelvic region and thigh [facility]* Diagnosis Left hip pain Pain in joint, pelvic region and thigh [facility]* Diagnosis Arnold-Chiari malformation (HCC)- Primary Spina bifida with hydrocephalus, unspecified region Asthma with COPD with exacerbation (HCC) Chronic obstructive asthma with exacerbation Ex-smoker Personal history of tobacco use, presenting hazards to health GERD without esophagitis Esophageal reflux Heavy alcohol use Alcohol abuse, unspecified Multiple thyroid nodules Nontoxic multinodular goiter Elevated blood sugar Other abnormal glucose Medication management Encounter for long-term (current) use of other medications Essential hypertension, benign Osteoporosis, unspecified osteoporosis type, unspecified pathological fracture presence [facility]* Diagnosis Pain in left hip- Primary Pain in joint, pelvic region and thigh [facility]* Diagnosis Essential hypertension, benign Screening for depression documented [facility] this [facility]* Diagnosis Medicare annual wellness visit, subsequent- Primary Routine general medical examination at a health care facility Essential hypertension, benign Elevated blood sugar Other abnormal glucose Asthma with COPD with exacerbation (HCC) Chronic obstructive asthma with exacerbation Pulmonary emphysema, unspecified emphysema type (HCC) Ectatic thoracic aorta (HCC) Thoracic aortic ectasia GERD without esophagitis Esophageal reflux Psychophysiological insomnia Persistent disorder of initiating or maintaining sleep Chronic anxiety Anxiety state, unspecified Manic disorder, recurrent episode, moderate (HCC) Manic disorder, recurrent episode, moderate Arnold-Chiari malformation (HCC) Spina bifida with hydrocephalus, unspecified region Heavy alcohol use Alcohol abuse, unspecified Chronic bilateral low back pain with sciatica, sciatica laterality unspecified Pain in left hip Pain in joint, pelvic region and thigh Overactive bladder Hypertonicity of bladder Osteoporosis, unspecified osteoporosis type, unspecified pathological fracture presence Herpes Herpes simplex without mention of complication Choking in adult Advance directive discussed with patient Other specified counseling Screening for depression Medication management Encounter for long-term (current) use of other medications [facility]* Diagnosis Pain in left hip- Primary Pain in joint, pelvic region and thigh documented in this encounter [facility] note* Diagnosis Psychophysiological insomnia Persistent disorder of initiating or maintaining sleep documented in this encounter [facility] note* Diagnosis Pain in left hip- Primary Pain in joint, pelvic region and thigh Chronic bilateral low back pain with sciatica, sciatica laterality unspecified [facility]* Diagnosis GERD without esophagitis- Primary Esophageal reflux Choking in adult documented in this encounter [facility] note* Diagnosis Osteoporosis, unspecified osteoporosis type, unspecified pathological fracture presence documented in this encounter [facility] note* Diagnosis Osteoporosis, unspecified osteoporosis type, unspecified pathological fracture presence- Primary documented in this encounter [facility] note* Diagnosis Injury of right toe, initial encounter- Primary Psychophysiological insomnia Persistent disorder of initiating or maintaining sleep Ectatic thoracic aorta Thoracic aortic ectasia Injury of right toe, initial encounter [facility]* Diagnosis Injury of right toe, initial encounter documented in this encounter [facility] note* Diagnosis Psychophysiological insomnia- Primary Persistent disorder of initiating or maintaining sleep Easy bruising Other symptoms involving skin and integumentary tissues Lumbar radiculopathy Thoracic or lumbosacral neuritis or radiculitis, unspecified documented in this encounter [facility] for referral (narrative)* Diagnostic Procedure Only (Urgent) - Closed Specialty Diagnoses / Procedures Referred By Contac t Referred To Contact XR IMAGING Diagnoses Coccyx pain Procedures XR SACRUM/COCCYX 3V AP/LAT RADEX SACRUM & COCCYX MINIMUM 2 VIEWS Bernard Elliott MD [address] [place] [address] Xr Imaging Referral ID Status Reason Start Date Expiration Date V isits Requested Visits Authorized [id number] Closed Auto-Generate d Referral 03/14/2022 04/13/2023 1 1 [facility] for referral (narrative)* Diagnostic Procedure Only (Routine) - Authorized Specialty Diagnoses / Procedures Referred By Contac t Referred To Contact US IMAGING Diagnoses Enlarged uterus Lower abdominal pain Procedures US FEMALE PELVIS TRANSVAG US TRANSVAGINAL Shanita Green PA-C [address] [place] [address] Us Imaging Referral ID Status Reason Start Date Expiration Date Visits Requested Visits Authorized [id number] Authorized Auto-Generat ed Referral 03/23/2022 04/22/2023 1 1 * Diagnostic Procedure Only (Routine) - Authorized Specialty Diagnoses / Procedures Referred By Contac t Referred To Contact US IMAGING Diagnoses Enlarged uterus Lower abdominal pain Procedures US FEMALE PELVIS TRANSABD COMPLETE US PELVIC NONOBSTETRIC REAL-TIME IMAGE COMPLETE Shanita Green PA-C [address] [place] [address] Us Imaging Referral ID Status Reason Start Date Expiration Date Visits Requested Visits Authorized [id number] Authorized Auto-Generat ed Referral 03/23/2022 04/22/2023 1 1 * Diagnostic Procedure Only (Routine) - Closed Specialty Diagnoses / Procedures Referred By Contac t Referred To Contact XR IMAGING Diagnoses Partial intestinal obstruction, unspecified cause (HCC) Procedures XR ABDOMEN 1V SUPINE RADIOLOGIC EXAM ABDOMEN 1 VIEW Shanita Green PA-C [address] [place] [address] Xr Imaging Referral ID Status Reason Start Date Expiration Date V isits Requested Visits Authorized [id number] Closed Auto-Generate d Referral 03/23/2022 04/22/2023 1 1 [facility] for referral (narrative)* Diagnostic Procedure Only (Routine) - Closed Specialty Diagnoses / Procedures Referred By Contac t Referred To Contact US IMAGING Diagnoses Enlarged uterus Lower abdominal pain Procedures US FEMALE PELVIS [facility] US TRANSVAGINAL Shanita Green PA-C [address] [place] [address] Us Imaging Referral ID Status Reason Start Date Expiration Date V isits Requested Visits Authorized [id number] Closed Auto-Generate d Referral 03/23/2022 04/22/2023 1 1 [facility] for referral (narrative)* Outpatient Procedure (Routine) - Closed Specialty Diagnoses / Procedures Referred By Contac t Referred To [facility] Diagnoses Feeling of chest tightness Chest heaviness SOB (shortness of breath) Procedures ECG COMPLETE ECG ROUTINE ECG W/LEAST 12 LDS W/I&R Sweetie Romeo APRN.CNP [address] [place] [address] [facility] [address] [place] [address] Referral ID Status Reason Start Date Expiration Date V isits Requested Visits Authorized [id number] Closed Auto-Generate d Referral 07/09/2022 07/09/2023 1 1 [facility] for referral (narrative)* Diagnostic Procedure Only (Routine) - Pending Review Specialty Diagnoses / Procedures Referred By Contac t Referred To Contact BR IMAGING Diagnoses Encounter for gynecological examination (general) (routine) without abnormal findings Encounter for screening mammogram for breast cancer Procedures MARCIANO SCREENING SCREENING MAMMOGRAPHY BI 2-VIEW BREAST INC Ashleigh Santiago APRN.SENIOR INFORMATICA DEVELOPER [address] [place] [address] Br Imaging [address] [place] [address] Referral ID Status Reason Start Date Expiration Date Visits Requested Visits Authorized [id number] Pending Review Auto-Generat ed Referral 08/30/2023 1 1 [facility] for referral (narrative)* Diagnostic Procedure Only (Routine) - Closed Specialty Diagnoses / Procedures [facility] Ref[facility] To Contact [facility] Diagnoses Weight loss Ex-smoker Procedures US ABDOMEN COMPLETE US ABDOMINAL REAL TIME W/IMAGE DOCUMENTATION Rito Camp MD [address] [place] [address] [place] [address] Referral ID Status Reason Start Date Expiration Date V isits Requested Visits Authorized [id number] Closed Auto-Generate d Referral 11/19/2022 12/19/2023 1 1 [facility] for referral (narrative)* Diagnostic Procedure Only (Routine) - Closed Specialty Diagnoses / Procedures [facility] Referred To Contact [facility] Diagnoses Encounter for screening mammogram for malignant neoplasm of breast Procedures MARCIANO SCREENING SCREENING MAMMOGRAPHY BI 2-VIEW BREAST INC Ashleigh Santiago APRN.SENIOR INFORMATICA DEVELOPER [address] [place] [address] Br Imaging [address] [place] [address] Referral ID Status Reason Start Date Expiration Date V isits Requested Visits Authorized [id number] Closed Auto-Generate d Referral 05/15/2022 06/14/2023 1 1 [facility] for referral (narrative)* Diagnostic Procedure Only (Routine) - Closed Specialty Diagnoses / Procedures [facility] Referred To Contact XR IMAGING Diagnoses Neck pain Acute pain of right shoulder Procedures XR SHOULDER GENERAL 3V OR MORE AP/TRUE AP/OTHER RIGHT RADEX SHOULDER COMPLETE MINIMUM 2 VIEWS Shanita Green PA-C [address] [place] [address] [place] [address] Referral ID Status Reason Start Date Expiration Date V isits Requested Visits Authorized [id number] Closed Auto-Generate d Referral 10/15/2023 11/13/2024 1 1 * Diagnostic Procedure Only (Routine) - Closed Specialty Diagnoses / Procedures Referred By Contac t Referred To Contact XR IMAGING Diagnoses Neck pain Acute pain of right shoulder Procedures XR CERV OTHER 4V AP/LAT/OBL RADEX SPINE CERVICAL 4 OR 5 VIEWS Shanita Green PA-C [address] [place] [address] [place] [address] Referral ID Status Reason Start Date Expiration Date V isits Requested Visits Authorized [id number] Closed Auto-Generate d Referral 10/15/2023 11/13/2024 1 1 [facility] for referral (narrative)* Diagnostic Procedure Only (Urgent) - Closed Specialty Diagnoses / Procedures Referred By Contac t Referred To Contact XR IMAGING Diagnoses Acute pain of left shoulder Fall, initial encounter Procedures XR SHOULDER GENERAL 3V OR MORE AP/TRUE AP/OTHER LEFT RADEX SHOULDER COMPLETE MINIMUM 2 VIEWS PodlogarSweetie APRN.SENIOR INFORMATICA DEVELOPER [address] [place] [address] [place] [address] Referral ID Status Reason Start Date Expiration Date V isits Requested Visits Authorized [id number] Closed Auto-Generate d Referral 03/18/2024 04/17/2025 1 1 * Diagnostic Procedure Only (Urgent) - Closed Specialty Diagnoses / Procedures [facility] Referred To Contact XR IMAGING Diagnoses Pain of left clavicle Fall, initial encounter Procedures XR CLAVICLE 2V LEFT RADEX CLAVICLE COMPLETE PodlogarSweetie APRN.SENIOR INFORMATICA DEVELOPER [address] [place] [address] [place] [address] Referral ID Status Reason Start Date Expiration Date V isits Requested Visits Authorized [id number] Closed Auto-Generate d Referral 03/18/2024 04/17/2025 1 1 [facility] for referral (narrative)* Diagnostic Procedure Only (Urgent) - Closed Specialty Diagnoses / Procedures Referred By Contac t Referred To Contact XR IMAGING Diagnoses Acute pain of left shoulder Fall, initial encounter Procedures XR SHOULDER GENERAL 3V OR MORE AP/TRUE AP/OTHER LEFT RADEX SHOULDER COMPLETE MINIMUM 2 VIEWS PodlogarSweetie APRN.SENIOR INFORMATICA DEVELOPER [address] [place] [address] [place] [address] Referral ID Status Reason Start Date Expiration Date V isits Requested Visits Authorized [id number] Closed Auto-Generate d Referral 03/18/2024 04/17/2025 1 1 * Diagnostic Procedure Only (Urgent) - Closed Specialty Diagnoses / Procedures Referred By Contac t Referred To Contact XR IMAGING Diagnoses Pain of left clavicle Fall, initial encounter Procedures XR CLAVICLE 2V LEFT RADEX CLAVICLE COMPLETE PodlogarSweetie APRN.SENIOR INFORMATICA DEVELOPER [address] [place] [address] [place] [address] Referral ID Status Reason Start Date Expiration Date V isits Requested Visits Authorized [id number] Closed Auto-Generate d Referral 03/18/2024 04/17/2025 1 1 [facility] for referral (narrative)* Diagnostic Procedure Only (Routine) - Closed Specialty Diagnoses / Procedures Referred By Contac t Referred To Contact XR IMAGING Diagnoses Neck pain Acute pain of right shoulder Procedures XR SHOULDER GENERAL 3V OR MORE AP/TRUE AP/OTHER RIGHT RADEX SHOULDER COMPLETE MINIMUM 2 VIEWS Shanita Green PA-C [address] [place] [address] [place] [address] Referral ID Status Reason Start Date Expiration Date V isits Requested Visits Authorized [id number] Closed Auto-Generate d Referral 10/15/2023 11/13/2024 1 1 * Diagnostic Procedure Only (Routine) - Closed Specialty Diagnoses / Procedures Referred By Contac t Referred To Contact XR IMAGING Diagnoses Neck pain Acute pain of right shoulder Procedures XR CERV OTHER 4V AP/LAT/OBL RADEX SPINE CERVICAL 4 OR 5 VIEWS Shanita Green PA-C [facility] [place] [address] [place] [address] Referral ID Status Reason Start Date Expiration Date V isits Requested Visits Authorized [id number] Closed Auto-Generate d Referral 10/15/2023 11/13/2024 1 1 [facility] for referral (narrative)* Diagnostic Procedure Only (Routine) - Closed Specialty Diagnoses / Procedures Referred By Contac t Referred To Contact XR IMAGING Diagnoses Lumbar radiculopathy Numbness and tingling of both legs Procedures XR HIP BILATERAL 5V PEL/AP/LAT EACH HIP RADEX HIPS BILATERAL WITH PELVIS MINIMUM 5 VIEWS Alex Brown APRN.CNP [address] [place] [address] [place] [address] Referral ID Status Reason Start Date Expiration Date V isits Requested Visits Authorized [id number] Closed Auto-Generate d Referral 08/15/2023 09/13/2024 1 1 * Diagnostic Procedure Only (Routine) - Closed Specialty Diagnoses / Procedures Referred By Contac t Referred To Contact XR IMAGING Diagnoses Lumbar radiculopathy Numbness and tingling of both legs Acute bilateral low back pain with bilateral sciatica Procedures XR LUMBAR MOTION 4V AP/LAT/ FLEX/EXT RADEX SPINE LUMBOSACRAL MINIMUM 4 VIEWS Alex Brown APRN.CNP [facility] [place] [address] [place] [address] Referral ID Status Reason Start Date Expiration Date V isits Requested Visits Authorized [id number] Closed Auto-Generate d Referral 08/15/2023 09/13/2024 1 1 [facility] for referral (narrative)* Diagnostic Procedure Only (Urgent) - Closed Specialty Diagnoses / Procedures Referred By Contac t Referred To Contact XR IMAGING Diagnoses Pain Procedures XR WRIST INJURY 4V PA/LAT/OBL/SCAPH RIGHT RADEX WRIST COMPLETE MINIMUM 3 VIEWS Shanna Newton APRN.SENIOR INFORMATICA DEVELOPER [address] [place] [address] [place] [address] Referral ID Status Reason Start Date Expiration Date V isits Requested Visits Authorized [id number] Closed Auto-Generate d Referral 12/18/2022 01/17/2024 1 1 [facility] for referral (narrative)* Diagnostic Procedure Only (Urgent) - Closed Specialty Diagnoses / Procedures Referred By Contac t Referred To Contact XR IMAGING Diagnoses Coccyx pain Procedures XR SACRUM/COCCYX 3V AP/LAT RADEX SACRUM & COCCYX MINIMUM 2 VIEWS Bernard Elliott MD [address] [place] [address] [place] [address] Referral ID Status Reason Start Date Expiration Date V isits Requested Visits Authorized [id number] Closed Auto-Generate d Referral 03/14/2022 04/13/2023 1 1 [facility] for referral (narrative)* Diagnostic Procedure Only (Routine) - Closed Specialty Diagnoses / Procedures Referred By Contac t Referred To Contact XR IMAGING Diagnoses Partial intestinal obstruction, unspecified cause (HCC) Procedures XR ABDOMEN 1V SUPINE RADIOLOGIC EXAM ABDOMEN 1 VIEW Shanita Green PA-C [address] [place] [address] [place] [address] Referral ID Status Reason Start Date Expiration Date V isits Requested Visits Authorized [id number] Closed Auto-Generate d Referral 03/23/2022 04/22/2023 1 1 [facility] for referral (narrative)* Diagnostic Procedure Only (Routine) - Closed Specialty Diagnoses / Procedures Referred By Contac t Referred To Contact XR IMAGING Diagnoses Left hip pain Procedures XR HIP GENERAL 3V PELV/AP/LAT LEFT RADEX HIP UNILATERAL WITH PELVIS 2-3 VIEWS Alex Brown APRN.LUIS FELIPE [address] [place] [address] [place] [address] Referral ID Status Reason Start Date Expiration Date V isits Requested Visits Authorized [id number] Closed Auto-Generate d Referral 08/03/2024 09/02/2025 1 1 [facility] for referral (narrative)* Diagnostic Procedure Only (Routine) - Authorized Specialty Diagnoses / Procedures Referred By Contac t Referred To Contact XR IMAGING Diagnoses Osteoporosis, unspecified osteoporosis type, unspecified pathological fracture presence Procedures DXA-AXIAL SKELETON DXA BONE DENSITY STUDY 1/ SITES AXIAL Rito Tripp MD [facility] [place] [id number] [place] [address] Referral ID Status Reason Start Date Expiration Date Visits Requested Visits Authorized [id number] Authorized Auto-Generat ed Referral 10/01/2024 10/31/2025 1 1 [facility] for referral (narrative)No reason for referral information availableW[facility] Work Phone: Reason for visit Narrative* Diagnostic Procedure Only (Routine) - Closed Specialty Diagnoses / Procedures Referred By Contac t Referred To Contact BR IMAGING Diagnoses Encounter for screening mammogram for malignant neoplasm of breast Procedures MARCIANO SCREENING SCREENING MAMMOGRAPHY BI 2-VIEW BREAST INC Ashleigh Santiago APRN.SENIOR INFORMATICA DEVELOPER [place] [address] [facility] Imaging [address] [place] [address] Referral ID Status Reason Start Date Expiration Date V isits Requested Visits Authorized [id number] Closed Auto-Generate d Referral 05/15/2022 06/14/2023 1 1 [facility] for visit Narrative* Diagnostic Procedure Only (Urgent) - Closed Specialty Diagnoses / Procedures Referred By Contac t Referred To Contact XR IMAGING Diagnoses Acute pain of left shoulder Fall, initial encounter Procedures XR SHOULDER GENERAL 3V OR MORE AP/TRUE AP/OTHER LEFT RADEX SHOULDER COMPLETE MINIMUM 2 VIEWS Sweetie Romeo PRODUCTION SAMPLER.SENIOR INFORMATICA DEVELOPER [address] [place] [address] [place] [address] Referral ID Status Reason Start Date Expiration Date V isits Requested Visits Authorized [id number] Closed Auto-Generate d Referral 03/18/2024 04/17/2025 1 1 [facility] for visit Narrative* Diagnostic Procedure Only (Routine) - Closed Specialty Diagnoses / Procedures Referred By Contac t Referred To Contact XR IMAGING Diagnoses Neck pain Acute pain of right shoulder Procedures XR SHOULDER GENERAL 3V OR MORE AP/TRUE AP/OTHER RIGHT RADEX SHOULDER COMPLETE MINIMUM 2 VIEWS Shanita Green PA-C [address] [place] [address] [place] [address] Referral ID Status Reason Start Date Expiration Date V isits Requested Visits Authorized [id number] Closed Auto-Generate d Referral 10/15/2023 11/13/2024 1 1 [facility] for visit Narrative* Diagnostic Procedure Only (Routine) - Closed Specialty Diagnoses / Procedures Referred By Contac t Referred To Contact XR IMAGING Diagnoses Lumbar radiculopathy Numbness and tingling of both legs Procedures XR PELVIS 3V AP/INLET/OUTLET RADIOLOGIC EXAM PELVIS COMPL MINIMUM 3 VIEWS Alex Brown PRODUCTION SAMPLER.SENIOR INFORMATICA DEVELOPER [address] [place] [address] [place] [address] Referral ID Status Reason Start Date Expiration Date V isits Requested Visits Authorized [id number] Closed Auto-Generate d Referral 08/15/2023 09/13/2024 1 1 [facility] for visit Narrative* Diagnostic Procedure Only (Urgent) - Closed Specialty Diagnoses / Procedures Referred By Contac t Referred To Contact XR IMAGING Diagnoses Pain Procedures XR WRIST INJURY 4V PA/LAT/OBL/SCAPH RIGHT RADEX WRIST COMPLETE MINIMUM 3 VIEWS Shanna Newton, PRODUCTION SAMPLER.SENIOR INFORMATICA DEVELOPER [address] [place] [address] [place] [address] Referral ID Status Reason Start Date Expiration Date V isits Requested Visits Authorized [id number] Closed Auto-Generate d Referral 12/18/2022 01/17/2024 1 1 [facility] for visit Narrative* Diagnostic Procedure Only (Urgent) - Closed Specialty Diagnoses / Procedures Referred By Contac t Referred To Contact XR IMAGING Diagnoses Coccyx pain Procedures XR SACRUM/COCCYX 3V AP/LAT RADEX SACRUM & COCCYX MINIMUM 2 VIEWS Bernard Elliott MD [address] [place] [address] [place] [address] Referral ID Status Reason Start Date Expiration Date V isits Requested Visits Authorized [id number] Closed Auto-Generate d Referral 03/14/2022 04/13/2023 1 1 [facility] for visit Narrative* Diagnostic Procedure Only (Routine) - Closed Specialty Diagnoses / Procedures Referred By Contac t Referred To Contact XR IMAGING Diagnoses Partial intestinal obstruction, unspecified cause (HCC) Procedures XR ABDOMEN 1V SUPINE RADIOLOGIC EXAM ABDOMEN 1 VIEW Shanita Green PA-C [address] [place] [address] [place] [address] Referral ID Status Reason Start Date Expiration Date V isits Requested Visits Authorized [id number] Closed Auto-Generate d Referral 03/23/2022 04/22/2023 1 1 [facility] for visit Narrative* Diagnostic Procedure Only (Routine) - Closed Specialty Diagnoses / Procedures Referred By Contac t Referred To Contact BR IMAGING Diagnoses Encounter for screening mammogram for breast cancer Procedures MARCIANO SCREENING SCREENING MAMMOGRAPHY BI 2-VIEW BREAST INC CAD Rito Camp MD [address] [place] [address] [facility] Imaging [address] [place] [address] Referral ID Status Reason Start Date Expiration Date V isits Requested Visits Authorized [id number] Closed Auto-Generate d Referral 06/09/2024 07/09/2025 1 1 [facility] for visit Narrative* Diagnostic Procedure Only (Routine) - Closed Specialty Diagnoses / Procedures Referred By Contac t Referred To Contact XR IMAGING Diagnoses Left hip pain Procedures XR HIP GENERAL 3V PELV/AP/LAT LEFT RADEX HIP UNILATERAL WITH PELVIS 2-3 VIEWS Alex Brown APRN.CNP [address] [place] [address] [place] [address] Referral ID Status Reason Start Date Expiration Date V isits Requested Visits Authorized [id number] Closed Auto-Generate d Referral 08/03/2024 09/02/2025 1 1 [facility] for visit Narrative* Diagnostic Procedure Only (Routine) - Closed Specialty Diagnoses / Procedures Referred By Contac t Referred To Contact XR IMAGING Diagnoses Osteoporosis, unspecified osteoporosis type, unspecified pathological fracture presence Procedures DXA-AXIAL SKELETON DXA BONE DENSITY STUDY SITES AXIAL Rito Tripp MD [address] [place] [id number] Phone: tel: fax: [place] [address] Referral ID Status Reason Start Date Expiration Date V isits Requested Visits Authorized [id number] Closed Auto-Generate d Referral 10/01/2024 10/31/2025 1 1 [facility] for visit Narrative* Diagnostic Procedure Only (Urgent) - Closed Specialty Diagnoses / Procedures Referred By Contac t Referred To Contact XR IMAGING Diagnoses Injury of right toe, initial encounter Procedures XR FOOT GENERAL 3V AP/LAT/OBL RIGHT XR FOOT GENERAL 3V AP/LAT/OBL RIGHT RADEX FOOT COMPLETE MINIMUM 3 VIEWS Shanita Green PA-C [address] [place] [id number] Phone: tel: fax: [place] [address] Referral ID Status Reason Start Date Expiration Date V isits Requested Visits Authorized [id number] Closed Auto-Generate d Referral 01/05/2025 02/04/2026 1 1 [facility] Advance Directives No Advanced Directives Records FoundDocuments on File Type Date Recorded Patient Solution Advisor 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 Advance Directive(s) 01/21/2018 12:19 PM Advance Directive(s) 06/27/2016 9:10 AM Advance Directive(s) 06/19/2016 1:09 PM Advance Directive(s) 12/12/2011 12:00 AM Advance Directive Response Recorded Date/ Time Advance Directives Yes July 4:55pm Living Will Yes February 28, 2021 6:17pm Power of Cellophane Bath Mixer Yes February 28 6:17pm Documents on File Type Date Recorded Patient Solution Advisor 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 Advance Directive(s) 01/21/2018 12:19 PM Advance Directive(s) 06/27/2016 9:10 AM Advance Directive(s) 06/19/2016 1:09 PM Advance Directive(s) 12/12/2011 12:00 AM Advance Directive Response Recorded Date/ Time Name of Medical Power of Cellophane Bath Mixer unsure March 17, 2022 6:05pm Advance Directives Yes July 4:55pm Living Will Yes March 17, 2022 6:05pm Power of Cellophane Bath Mixer Yes March 17 6:05pm Advance Directive Response Recorded Date/ Time Name of Medical Power of Cellophane Bath Mixer unsure March 17, 2022 6:05pm Advance Directives Yes July 4:55pm Living Will Yes March 17, 2022 10:51pm Power of Cellophane Bath Mixer No March 17 10:51pm Documents on File Type Date Recorded Patient Solution Advisor 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 Advance Directive(s) 01/21/2018 12:19 PM Advance Directive(s) 12/12/2011 Documents on File Type Date Recorded Patient Solution Advisor 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 Advance Directive(s) 01/21/2018 12:19 PM Advance Directive(s) 12/12/2011 Advance Directive Response Recorded Date/ Time Advance Directives Yes July 4:55pm Living Will No May 31, 2023 9:50pm Power of Cellophane Bath Mixer No May 9:50pm Advance Directive Response Recorded Date/ Time Name of Medical Power of Cellophane Bath Mixer Reina Watson June 01, 2023 2:55am Advance Directives Yes July 4:55pm Living Will Yes June 01, 2023 8:11am Power of Cellophane Bath Mixer Yes May 8:11am Advance Directive Response Recorded Date/ Time Advance Directives Yes July 4:55pm Living Will Yes June 01, 2023 8:11am Power of Cellophane Bath Mixer Yes May 8:11am Advance Directive Response Recorded Date/ Time Advance Directives Yes July 4:55pm Chief Complaint and Reason for Visit Chief Complaint Chronic obstructive pulmonary disease, unspecified Chronic obstructive pulmonary disease, unspecified Chief Complaint Chronic obstructive pulmonary disease, unspecified Chronic obstructive pulmonary disease, unspecified SBO Reason for Visit Abdominal pain Nausea Partial small bowel obstruction Chief Complaint Chronic obstructive pulmonary disease, unspecified Chronic obstructive pulmonary disease, unspecified SBO SBO SBO Reason for Visit Abdominal pain Nausea Partial small bowel obstruction Chief Complaint SBO SBO SBO 6 M FU NICOTINE DEPENDENCE Reason for Visit Abdominal pain Nausea Lung nodule Nicotine dependence, cigarettes, in remission Asthma-COPD overlap syndrome Chief Complaint COTTON MOUTH, ANXIET Y Osteoporosis 1 Y FU SMALL BOWEL OBSTRUCTION Reason for Visit Vitamin D toxicity Osteoporosis Asthma-COPD overlap syndrome Smoking greater than 30 pack years Abdominal pain Nausea SBO (small bowel obstruction) Chief Complaint COTTON MOUTH, ANXIET Y Osteoporosis 1 Y FU SMALL BOWEL OBSTRUCTION SMALL BOWEL OBSTRUCTION SMALL BOWEL OBSTRUCTION SMALL BOWEL OBSTRUCTION SMALL BOWEL OBSTRUCTION Reason for Visit Vitamin D toxicity Osteoporosis Asthma-COPD overlap syndrome Smoking greater than 30 pack years Abdominal pain Alcoholism Nausea SBO (small bowel obstruction) Chief Complaint Nicotine dependence, cigarettes, uncomplicated Cough/cold Reason for Visit Asthma-COPD overlap syndrome Smoking greater than 30 pack years Chief Complaint Admit Date 6-8 wk fu September 15, 2024 1 0:58am DYSPHAGIA November 24, 2024 12: 45pm DYSPHAGIA, RX HERE November 25, 2024 12: 00pm Reason for Visit Admit Date Asthma-COPD overlap syndrome September 10:58am Nicotine dependence, cigarettes, in faby ssion September 15, 2024 10:58am Chief Complaint Admit Date 6-8 wk fu September 15, 2024 1 0:58am DYSPHAGIA November 24, 2024 12: 45pm DYSPHAGIA, RX HERE November 25, 2024 12: 00pm Gastroesophageal reflux disease (GERD) A pril 2024 10:25am NICOTINE DEPENDENCE January 01, 2025 12:42p m Reason for Visit Admit Date Asthma-COPD overlap syndrome September 10:58am Nicotine dependence, cigarettes, in faby ssion September 15, 2024 10:58am Dysphagia December 17, 2024 10: 25am Encounter for screening colonoscopy Apri l 2024 10:25am Family history of colon cancer in father December 17, 2024 10:25am Chief Complaint Admit Date DYSPHAGIA November 24, 2024 12: 45pm DYSPHAGIA, RX HERE November 25, 2024 12: 00pm Gastroesophageal reflux disease (GERD) A pril 2024 10:25am NICOTINE DEPENDENCE January 01, 2025 12:42p m Reason for Visit Admit Date Dysphagia December 17, 2024 10: 25am Encounter for screening colonoscopy Apri l 2024 10:25am Family history of colon cancer in father December 17, 2024 10:25am Chief Complaint Admit Date DYSPHAGIA November 24, 2024 12: 45pm DYSPHAGIA, RX HERE November 25, 2024 12: 00pm Gastroesophageal reflux disease (GERD) A pril 2024 10:25am NICOTINE DEPENDENCE January 01, 2025 12:42p m 5 M FU February 09, 2025 10:4 2am Family History No Family History Records Found Relationship Condition Age at Onset Recorded Date/T stefany father Hypertension Unknown Aortic aneurysm Unknown Malignant neoplasm Unknown Relationship Condition Age at Onset Recorded Date/T stefany father Hypertension Unknown Aortic aneurysm Unknown Malignant neoplasm Unknown mother Cerebral aneurysm Unknown Relationship Condition Age at Onset Recorded Date/T stefany father Hypertension Unknown Aortic aneurysm Unknown Malignant neoplasm Unknown Malignant neoplasm of colon Unknown mother Cerebral aneurysm Unknown Depression Unknown Reason for Referral Specialty Diagnoses / Procedures Referred By Castillo argueta Referred To Contact Gynecology Diagnoses Uterine leiomyoma, unspecified location Procedures CONSULT TO GYNECOLOGY OFFICE/OUTPATIENT [facility] 60-74 MINUTES Shanita Green PA-C [address] [place] [address] Referral ID Status Reason Start Date Expiration Date Visits Requested Visits Authorized [id number] Pending Review PCP Requested Referral Auto-Generate d Referral 03/30/2022 03/30/2023 1 1 Specialty Diagnoses / Procedures Referred By Castillo t Referred To Contact Urology Diagnoses Overactive bladder Procedures CONSULT TO UROLOGY OFFICE/OUTPATIENT [facility] 60-74 MINUTES Shanita Green PA-C [address] [place] [address] Referral ID Status Reason Start Date Expiration Date Visits Requested Visits Authorized [id number] Pending Review PCP Requested Referral 05/28/2022 05/28/2023 1 1 Specialty Diagnoses / Procedures Referred By Contac t Referred To Contact CT IMAGING Diagnoses Weight loss Ex-smoker Lung nodules Procedures CT CHEST WO IVCON DIAGNOSTIC COMPUTED TOMOGRAPHY THORAX W/O CNTRST Rito Camp MD [address] [place] [address] [address] Imaging Referral ID Status Reason Start Date Expiration Date Visits Requested Visits Authorized [id number] Authorized Auto-Generat ed Referral 11/19/2022 12/19/2023 1 1 Specialty Diagnoses / Procedures Referred By Contac t Referred To Contact Endocrinology Diagnoses Osteoporosis, unspecified osteoporosis type, unspecified pathological fracture presence Procedures CONSULT TO ENDOCRINOLOGY OFFICE/OUTPATIENT NEW HIGH MDM 60-74 MINUTES Rito Camp MD [address] [place] [address] Referral ID Status Reason Start Date Expiration Date Visits Requested Visits Authorized [id number] Pending Review PCP Requested Referral 11/19/2022 11/19/2023 1 1 Specialty Diagnoses / Procedures Referred By Contac t Referred To Contact US IMAGING Diagnoses Weight loss Ex-smoker Procedures US ABDOMEN COMPLETE US ABDOMINAL REAL TIME W/IMAGE DOCUMENTATION Rito Camp MD [address] [place] [address] Us Imaging Referral ID Status Reason Start Date Expiration Date Visits Requested Visits Authorized [id number] Authorized Auto-Generat ed Referral 11/19/2022 12/19/2023 1 1 Specialty Diagnoses / Procedures Referred By Contac t Referred To Contact CT IMAGING Diagnoses Ex-smoker Weight loss, unintentional Procedures CT ABD/PEL W IVCON CT ABD & PELVIS W/CONTRAST Rito Camp MD [address] [place] [address] Imaging Referral ID Status Reason Start Date Expiration Date Visits Requested Visits Authorized [id number] Authorized Auto-Generat ed Referral 12/04/2022 01/03/2024 1 1 Specialty Diagnoses / Procedures Referred By Contac t Referred To Contact CT IMAGING Diagnoses New onset of headaches after age 51 Procedures CTA HEAD W IVCON CT ANGIOGRAPHY HEAD W/CONTRAST/NONCONTRAST Alex Brown, PRODUCTION SAMPLER.SENIOR INFORMATICA DEVELOPER [address] [place] [address] Ct Imaging Referral ID Status Reason Start Date Expiration Date Visits Requested Visits Authorized [id number] Authorized Auto-Generat ed Referral 02/15/2023 03/16/2024 1 1 Specialty Diagnoses / Procedures Referred By Contac t Referred To Contact Allergy Diagnoses Runny nose Procedures CONSULT TO ALLERGY/IMMUNOLOGY OFFICE/OUTPATIENT NEW HIGH MDM 60-74 MINUTES Alex Brown, ALAN.SENIOR INFORMATICA DEVELOPER [address] [place] [address] Referral ID Status Reason Start Date Expiration Date Visits Requested Visits Authorized [id number] Pending Review PCP Requested Referral 02/15/2023 02/15/2024 1 1 Specialty Diagnoses / Procedures Referred By Contac t Referred To Contact General Surgery Diagnoses S/p small bowel obstruction Procedures CONSULT TO GENERAL SURGERY OFFICE/OUTPATIENT NEW [facility] MDM 60-74 MINUTES Alex Brown, PRODUCTION SAMPLER.SENIOR INFORMATICA DEVELOPER [address] [place] [address] Referral ID Status Reason Start Date Expiration Date Visits Requested Visits Authorized [id number] Pending Review PCP Requested Referral 06/04/2023 06/03/2024 1 1 Specialty Diagnoses / Procedures Referred By Contac t Referred To Contact General Surgery Diagnoses Axillary lump, right Procedures CONSULT TO GENERAL SURGERY OFFICE/OUTPATIENT NEW HIGH MDM 60-74 MINUTES Shanita Green PA-C [address] [place] [address] Referral ID Status Reason Start Date Expiration Date Visits Requested Visits Authorized [id number] Pending Review PCP Requested Referral 06/10/2024 1 1 Specialty Diagnoses / Procedures Referred By Contac t Referred To Contact CT IMAGING Diagnoses New onset of headaches after age 51 Procedures CTA HEAD W IVCON CT ANGIOGRAPHY HEAD W/CONTRAST/NONCONTRAST Alex Brown, ALAN.SENIOR INFORMATICA DEVELOPER [address] [place] [address] [address] [place] [address] Referral ID Status Reason Start Date Expiration Date V isits Requested Visits Authorized [id number] Closed Auto-Generate d Referral 02/15/2023 03/16/2024 1 1 Specialty Diagnoses / Procedures Referred By Contac t Referred To Contact CT IMAGING Diagnoses Weight loss Ex-smoker Lung nodules Procedures CT CHEST WO IVCON DIAGNOSTIC COMPUTED TOMOGRAPHY THORAX W/O CNTRST Rito Camp MD [address] [place] [address] [place] [address] Referral ID Status Reason Start Date Expiration Date V isits Requested Visits Authorized [id number] Closed Auto-Generate d Referral 11/19/2022 12/19/2023 1 1 Specialty Diagnoses / Procedures Referred By Contac t Referred To Contact Orthopedics Diagnoses Fall, initial encounter Acute pain of left shoulder Procedures CONSULT TO ORTHOPAEDICS OFFICE/OUTPATIENT [facility] 60 MINUTES Alex Brown, ALAN.SENIOR INFORMATICA DEVELOPER [address] [place], [place] [phone] Referral ID Status Reason Start Date Expiration Date Visits Requested Visits Authorized [id number] Authorized PCP Requested Referral 03/26/2024 03/26/2025 1 1 Specialty Diagnoses / Procedures Referred By Contac t Referred To Contact MR IMAGING Diagnoses Fall, initial encounter Acute pain of left shoulder Procedures MRI SHOULDER WO/W IVCON LEFT MRI ANY JT UPPER EXTREMITY W/O & W/CONTR Alex Lora, ALAN.SENIOR INFORMATICA DEVELOPER [facility] [place] [address] [place] [address] Referral ID Status Reason Start Date Expiration Date Visits Requested Visits Authorized [id number] New Request Auto-Generat ed Referral 03/26/2024 04/25/2025 1 1 Specialty Diagnoses / Procedures Referred By Contac t Referred To Contact MR IMAGING Diagnoses Acute pain of left shoulder Procedures MRI SHOULDER WO IVCON LEFT MRI ANY JT UPPER EXTREMITY W/O CONTRAST Alex Lora, ALAN.SENIOR INFORMATICA DEVELOPER [address] [place] [address] [place] [address] Referral ID Status Reason Start Date Expiration Date V isits Requested Visits Authorized [id number] Closed Auto-Generate d Referral 04/24/2024 07/22/2024 1 1 Specialty Diagnoses / Procedures Referred By Contac t Referred To Contact [facility] Diagnoses Tendinopathy of rotator cuff, unspecified laterality Procedures CONSULT TO PHYSICAL THERAPY PHYSICAL THERAPY EVALUATION HIGH COMPLEX 45 MINS Alex Brown APRN.SENIOR INFORMATICA DEVELOPER [address] [place] [address] [facility] [address] [address] Referral ID Status Reason Start Date Expiration Date Visits Requested Visits Authorized [id number] Pending Review Auto-Generat ed Referral 04/27/2024 04/27/2025 1 1 Specialty Diagnoses / Procedures Referred By Contac t Referred To Contact [facility] Diagnoses Left hip pain Procedures CONSULT TO PHYSICAL THERAPY PHYSICAL THERAPY EVALUATION HIGH COMPLEX 45 MINS Shanita Green PA-C [address] [place] [phone] [facility] [address] [address] Referral ID Status Reason Start Date Expiration Date V isits Requested Visits Authorized [id number] Closed Auto-Generate d Referral 08/05/2024 08/05/2025 1 1 Health Concerns Infection Onset Date Last Indicated Resolved Time COVID-19 Rule-Out 07/04/2022 07/04/2022 Infection Onset Date Last Indicated Resolved Time COVID-19 Confirmed 07/04/2022 07/04/2022 Infection Onset Date Last Indicated Resolved Time COVID-19 Confirmed 07/04/2022 07/04/2022 Summary Purpose Additional Source Comments Source Comments (unrecognize d section and content) In the event this informatio n is protected by the Federal Confidentiality of Alcohol and Drug Abuse Patient Records regulations: The Federal rules restrict any use of the information to criminally investigate or prosecute any alcohol or drug abuse patient.[facility]In the event this information is protected by the Federal Confidentiality of Alcohol and Drug Abuse Patient Records regulations: The Federal rules restrict any use of the information to criminally investigate or prosecute any alcohol or drug abuse patient.[facility] HospitalIn the event this information is protected by the Federal Confidentiality of Alcohol and Drug Abuse Patient Records regulations: The Federal rules restrict any use of the information to criminally investigate or prosecute any alcohol or drug abuse patient.[facility] HospitalIn the event this information is protected by the Federal Confidentiality of Alcohol and Drug Abuse Patient Records regulations: The Federal rules restrict any use of the information to criminally investigate or prosecute any alcohol or drug abuse patient.[facility] HospitalIn the event this information is protected by the Federal Confidentiality of Alcohol and Drug Abuse Patient Records regulations: The Federal rules restrict any use of the information to criminally investigate or prosecute any alcohol or drug abuse patient.[facility] HospitalIn the event this information is protected by the Federal Confidentiality of Alcohol and Drug Abuse Patient Records regulations: The Federal rules restrict any use of the information to criminally investigate or prosecute any alcohol or drug abuse patient.[facility] HospitalIn the event this information is protected by the Federal Confidentiality of Alcohol and Drug Abuse Patient Records regulations: The Federal rules restrict any use of the information to criminally investigate or prosecute any alcohol or drug abuse patient.[facility] HospitalIn the event this information is protected by the Federal Confidentiality of Alcohol and Drug Abuse Patient Records regulations: The Federal rules restrict any use of the information to criminally investigate or prosecute any alcohol or drug abuse patient.[facility] HospitalIn the event this information is protected by the Federal Confidentiality of Alcohol and Drug Abuse Patient Records regulations: The Federal rules restrict any use of the information to criminally investigate or prosecute any alcohol or drug abuse patient.[facility] HospitalIn the event this information is protected by the Federal Confidentiality of Alcohol and Drug Abuse Patient Records regulations: The Federal rules restrict any use of the information to criminally investigate or prosecute any alcohol or drug abuse patient.[facility] HospitalIn the event this information is protected by the Federal Confidentiality of Alcohol and Drug Abuse Patient Records regulations: The Federal rules restrict any use of the information to criminally investigate or prosecute any alcohol or drug abuse patient.[facility] HospitalIn the event this information is protected by the Federal Confidentiality of Alcohol and Drug Abuse Patient Records regulations: The Federal rules restrict any use of the information to criminally investigate or prosecute any alcohol or drug abuse patient.[facility] HospitalIn the event this information is protected by the Federal Confidentiality of Alcohol and Drug Abuse Patient Records regulations: The Federal rules restrict any use of the information to criminally investigate or prosecute any alcohol or drug abuse patient.[facility] HospitalIn the event this information is protected by the Federal Confidentiality of Alcohol and Drug Abuse Patient Records regulations: The Federal rules restrict any use of the information to criminally investigate or prosecute any alcohol or drug abuse patient.[facility] HospitalIn the event this information is protected by the Federal Confidentiality of Alcohol and Drug Abuse Patient Records regulations: The Federal rules restrict any use of the information to criminally investigate or prosecute any alcohol or drug abuse patient.[facility] HospitalIn the event this information is protected by the Federal Confidentiality of Alcohol and Drug Abuse Patient Records regulations: The Federal rules restrict any use of the information to criminally investigate or prosecute any alcohol or drug abuse patient.[facility] HospitalIn the event this information is protected by the Federal Confidentiality of Alcohol and Drug Abuse Patient Records regulations: The Federal rules restrict any use of the information to criminally investigate or prosecute any alcohol or drug abuse patient.[facility] HospitalIn the event this information is protected by the Federal Confidentiality of Alcohol and Drug Abuse Patient Records regulations: The Federal rules restrict any use of the information to criminally investigate or prosecute any alcohol or drug abuse patient.[facility] HospitalIn the event this information is protected by the Federal Confidentiality of Alcohol and Drug Abuse Patient Records regulations: The Federal rules restrict any use of the information to criminally investigate or prosecute any alcohol or drug abuse patient.[facility] HospitalIn the event this information is protected by the Federal Confidentiality of Alcohol and Drug Abuse Patient Records regulations: The Federal rules restrict any use of the information to criminally investigate or prosecute any alcohol or drug abuse patient.[facility] HospitalIn the event this information is protected by the Federal Confidentiality of Alcohol and Drug Abuse Patient Records regulations: The Federal rules restrict any use of the information to criminally investigate or prosecute any alcohol or drug abuse patient.[facility] HospitalIn the event this information is protected by the Federal Confidentiality of Alcohol and Drug Abuse Patient Records regulations: The Federal rules restrict any use of the information to criminally investigate or prosecute any alcohol or drug abuse patient.[facility] HospitalIn the event this information is protected by the Federal Confidentiality of Alcohol and Drug Abuse Patient Records regulations: The Federal rules restrict any use of the information to criminally investigate or prosecute any alcohol or drug abuse patient.[facility] HospitalIn the event this information is protected by the Federal Confidentiality of Alcohol and Drug Abuse Patient Records regulations: The Federal rules restrict any use of the information to criminally investigate or prosecute any alcohol or drug abuse patient.[facility] HospitalIn the event this information is protected by the Federal Confidentiality of Alcohol and Drug Abuse Patient Records regulations: The Federal rules restrict any use of the information to criminally investigate or prosecute any alcohol or drug abuse patient.[facility] HospitalIn the event this information is protected by the Federal Confidentiality of Alcohol and Drug Abuse Patient Records regulations: The Federal rules restrict any use of the information to criminally investigate or prosecute any alcohol or drug abuse patient.[facility] HospitalIn the event this information is protected by the Federal Confidentiality of Alcohol and Drug Abuse Patient Records regulations: The Federal rules restrict any use of the information to criminally investigate or prosecute any alcohol or drug abuse patient.[facility] HospitalIn the event this information is protected by the Federal Confidentiality of Alcohol and Drug Abuse Patient Records regulations: The Federal rules restrict any use of the information to criminally investigate or prosecute any alcohol or drug abuse patient.[facility] HospitalIn the event this information is protected by the Federal Confidentiality of Alcohol and Drug Abuse Patient Records regulations: The Federal rules restrict any use of the information to criminally investigate or prosecute any alcohol or drug abuse patient.[facility] HospitalIn the event this information is protected by the Federal Confidentiality of Alcohol and Drug Abuse Patient Records regulations: The Federal rules restrict any use of the information to criminally investigate or prosecute any alcohol or drug abuse patient.[facility] HospitalIn the event this information is protected by the Federal Confidentiality of Alcohol and Drug Abuse Patient Records regulations: The Federal rules restrict any use of the information to criminally investigate or prosecute any alcohol or drug abuse patient.[facility] HospitalIn the event this information is protected by the Federal Confidentiality of Alcohol and Drug Abuse Patient Records regulations: The Federal rules restrict any use of the information to criminally investigate or prosecute any alcohol or drug abuse patient.[facility] HospitalIn the event this information is protected by the Federal Confidentiality of Alcohol and Drug Abuse Patient Records regulations: The Federal rules restrict any use of the information to criminally investigate or prosecute any alcohol or drug abuse patient.[facility] HospitalIn the event this information is protected by the Federal Confidentiality of Alcohol and Drug Abuse Patient Records regulations: The Federal rules restrict any use of the information to criminally investigate or prosecute any alcohol or drug abuse patient.[facility] HospitalIn the event this information is protected by the Federal Confidentiality of Alcohol and Drug Abuse Patient Records regulations: The Federal rules restrict any use of the information to criminally investigate or prosecute any alcohol or drug abuse patient.[facility] HospitalIn the event this information is protected by the Federal Confidentiality of Alcohol and Drug Abuse Patient Records regulations: The Federal rules restrict any use of the information to criminally investigate or prosecute any alcohol or drug abuse patient.[facility] HospitalIn the event this information is protected by the Federal Confidentiality of Alcohol and Drug Abuse Patient Records regulations: The Federal rules restrict any use of the information to criminally investigate or prosecute any alcohol or drug abuse patient.[facility] HospitalIn the event this information is protected by the Federal Confidentiality of Alcohol and Drug Abuse Patient Records regulations: The Federal rules restrict any use of the information to criminally investigate or prosecute any alcohol or drug abuse patient.[facility] HospitalIn the event this information is protected by the Federal Confidentiality of Alcohol and Drug Abuse Patient Records regulations: The Federal rules restrict any use of the information to criminally investigate or prosecute any alcohol or drug abuse patient.[facility] HospitalIn the event this information is protected by the Federal Confidentiality of Alcohol and Drug Abuse Patient Records regulations: The Federal rules restrict any use of the information to criminally investigate or prosecute any alcohol or drug abuse patient.[facility] HospitalIn the event this information is protected by the Federal Confidentiality of Alcohol and Drug Abuse Patient Records regulations: The Federal rules restrict any use of the information to criminally investigate or prosecute any alcohol or drug abuse patient.[facility] HospitalIn the event this information is protected by the Federal Confidentiality of Alcohol and Drug Abuse Patient Records regulations: The Federal rules restrict any use of the information to criminally investigate or prosecute any alcohol or drug abuse patient.[facility] HospitalIn the event this information is protected by the Federal Confidentiality of Alcohol and Drug Abuse Patient Records regulations: The Federal rules restrict any use of the information to criminally investigate or prosecute any alcohol or drug abuse patient.[facility] HospitalIn the event this information is protected by the Federal Confidentiality of Alcohol and Drug Abuse Patient Records regulations: The Federal rules restrict any use of the information to criminally investigate or prosecute any alcohol or drug abuse patient.[facility] HospitalIn the event this information is protected by the Federal Confidentiality of Alcohol and Drug Abuse Patient Records regulations: The Federal rules restrict any use of the information to criminally investigate or prosecute any alcohol or drug abuse patient.[facility] HospitalIn the event this information is protected by the Federal Confidentiality of Alcohol and Drug Abuse Patient Records regulations: The Federal rules restrict any use of the information to criminally investigate or prosecute any alcohol or drug abuse patient.[facility] HospitalIn the event this information is protected by the Federal Confidentiality of Alcohol and Drug Abuse Patient Records regulations: The Federal rules restrict any use of the information to criminally investigate or prosecute any alcohol or drug abuse patient.[facility] HospitalIn the event this information is protected by the Federal Confidentiality of Alcohol and Drug Abuse Patient Records regulations: The Federal rules restrict any use of the information to criminally investigate or prosecute any alcohol or drug abuse patient.[facility] HospitalIn the event this information is protected by the Federal Confidentiality of Alcohol and Drug Abuse Patient Records regulations: The Federal rules restrict any use of the information to criminally investigate or prosecute any alcohol or drug abuse patient.[facility] HospitalIn the event this information is protected by the Federal Confidentiality of Alcohol and Drug Abuse Patient Records regulations: The Federal rules restrict any use of the information to criminally investigate or prosecute any alcohol or drug abuse patient.[facility] HospitalIn the event this information is protected by the Federal Confidentiality of Alcohol and Drug Abuse Patient Records regulations: The Federal rules restrict any use of the information to criminally investigate or prosecute any alcohol or drug abuse patient.[facility] HospitalIn the event this information is protected by the Federal Confidentiality of Alcohol and Drug Abuse Patient Records regulations: The Federal rules restrict any use of the information to criminally investigate or prosecute any alcohol or drug abuse patient.[facility] HospitalIn the event this information is protected by the Federal Confidentiality of Alcohol and Drug Abuse Patient Records regulations: The Federal rules restrict any use of the information to criminally investigate or prosecute any alcohol or drug abuse patient.[facility] HospitalIn the event this information is protected by the Federal Confidentiality of Alcohol and Drug Abuse Patient Records regulations: The Federal rules restrict any use of the information to criminally investigate or prosecute any alcohol or drug abuse patient.[facility] HospitalIn the event this information is protected by the Federal Confidentiality of Alcohol and Drug Abuse Patient Records regulations: The Federal rules restrict any use of the information to criminally investigate or prosecute any alcohol or drug abuse patient.[facility] HospitalIn the event this information is protected by the Federal Confidentiality of Alcohol and Drug Abuse Patient Records regulations: The Federal rules restrict any use of the information to criminally investigate or prosecute any alcohol or drug abuse patient.[facility] HospitalIn the event this information is protected by the Federal Confidentiality of Alcohol and Drug Abuse Patient Records regulations: The Federal rules restrict any use of the information to criminally investigate or prosecute any alcohol or drug abuse patient.[facility] HospitalIn the event this information is protected by the Federal Confidentiality of Alcohol and Drug Abuse Patient Records regulations: The Federal rules restrict any use of the information to criminally investigate or prosecute any alcohol or drug abuse patient.[facility] HospitalIn the event this information is protected by the Federal Confidentiality of Alcohol and Drug Abuse Patient Records regulations: The Federal rules restrict any use of the information to criminally investigate or prosecute any alcohol or drug abuse patient.[facility] HospitalIn the event this information is protected by the Federal Confidentiality of Alcohol and Drug Abuse Patient Records regulations: The Federal rules restrict any use of the information to criminally investigate or prosecute any alcohol or drug abuse patient.[facility] HospitalIn the event this information is protected by the Federal Confidentiality of Alcohol and Drug Abuse Patient Records regulations: The Federal rules restrict any use of the information to criminally investigate or prosecute any alcohol or drug abuse patient.[facility] HospitalIn the event this information is protected by the Federal Confidentiality of Alcohol and Drug Abuse Patient Records regulations: The Federal rules restrict any use of the information to criminally investigate or prosecute any alcohol or drug abuse patient.[facility] HospitalIn the event this information is protected by the Federal Confidentiality of Alcohol and Drug Abuse Patient Records regulations: The Federal rules restrict any use of the information to criminally investigate or prosecute any alcohol or drug abuse patient.[facility] HospitalIn the event this information is protected by the Federal Confidentiality of Alcohol and Drug Abuse Patient Records regulations: The Federal rules restrict any use of the information to criminally investigate or prosecute any alcohol or drug abuse patient.[facility] HospitalIn the event this information is protected by the Federal Confidentiality of Alcohol and Drug Abuse Patient Records regulations: The Federal rules restrict any use of the information to criminally investigate or prosecute any alcohol or drug abuse patient.[facility] HospitalIn the event this information is protected by the Federal Confidentiality of Alcohol and Drug Abuse Patient Records regulations: The Federal rules restrict any use of the information to criminally investigate or prosecute any alcohol or drug abuse patient.[facility] HospitalIn the event this information is protected by the Federal Confidentiality of Alcohol and Drug Abuse Patient Records regulations: The Federal rules restrict any use of the information to criminally investigate or prosecute any alcohol or drug abuse patient.[facility] HospitalIn the event this information is protected by the Federal Confidentiality of Alcohol and Drug Abuse Patient Records regulations: The Federal rules restrict any use of the information to criminally investigate or prosecute any alcohol or drug abuse patient.[facility] HospitalIn the event this information is protected by the Federal Confidentiality of Alcohol and Drug Abuse Patient Records regulations: The Federal rules restrict any use of the information to criminally investigate or prosecute any alcohol or drug abuse patient.[facility] HospitalIn the event this information is protected by the Federal Confidentiality of Alcohol and Drug Abuse Patient Records regulations: The Federal rules restrict any use of the information to criminally investigate or prosecute any alcohol or drug abuse patient.[facility] HospitalIn the event this information is protected by the Federal Confidentiality of Alcohol and Drug Abuse Patient Records regulations: The Federal rules restrict any use of the information to criminally investigate or prosecute any alcohol or drug abuse patient.[facility] HospitalIn the event this information is protected by the Federal Confidentiality of Alcohol and Drug Abuse Patient Records regulations: The Federal rules restrict any use of the information to criminally investigate or prosecute any alcohol or drug abuse patient.[facility] HospitalIn the event this information is protected by the Federal Confidentiality of Alcohol and Drug Abuse Patient Records regulations: The Federal rules restrict any use of the information to criminally investigate or prosecute any alcohol or drug abuse patient.[facility] HospitalIn the event this information is protected by the Federal Confidentiality of Alcohol and Drug Abuse Patient Records regulations: The Federal rules restrict any use of the information to criminally investigate or prosecute any alcohol or drug abuse patient.[facility] HospitalIn the event this information is protected by the Federal Confidentiality of Alcohol and Drug Abuse Patient Records regulations: The Federal rules restrict any use of the information to criminally investigate or prosecute any alcohol or drug abuse patient.[facility] HospitalIn the event this information is protected by the Federal Confidentiality of Alcohol and Drug Abuse Patient Records regulations: The Federal rules restrict any use of the information to criminally investigate or prosecute any alcohol or drug abuse patient.[facility] HospitalIn the event this information is protected by the Federal Confidentiality of Alcohol and Drug Abuse Patient Records regulations: The Federal rules restrict any use of the information to criminally investigate or prosecute any alcohol or drug abuse patient.[facility] HospitalIn the event this information is protected by the Federal Confidentiality of Alcohol and Drug Abuse Patient Records regulations: The Federal rules restrict any use of the information to criminally investigate or prosecute any alcohol or drug abuse patient.[facility] HospitalIn the event this information is protected by the Federal Confidentiality of Alcohol and Drug Abuse Patient Records regulations: The Federal rules restrict any use of the information to criminally investigate or prosecute any alcohol or drug abuse patient.[facility] HospitalIn the event this information is protected by the Federal Confidentiality of Alcohol and Drug Abuse Patient Records regulations: The Federal rules restrict any use of the information to criminally investigate or prosecute any alcohol or drug abuse patient.[facility] HospitalIn the event this information is protected by the Federal Confidentiality of Alcohol and Drug Abuse Patient Records regulations: The Federal rules restrict any use of the information to criminally investigate or prosecute any alcohol or drug abuse patient.[facility] HospitalIn the event this information is protected by the Federal Confidentiality of Alcohol and Drug Abuse Patient Records regulations: The Federal rules restrict any use of the information to criminally investigate or prosecute any alcohol or drug abuse patient.[facility] HospitalIn the event this information is protected by the Federal Confidentiality of Alcohol and Drug Abuse Patient Records regulations: The Federal rules restrict any use of the information to criminally investigate or prosecute any alcohol or drug abuse patient.[facility] HospitalIn the event this information is protected by the Federal Confidentiality of Alcohol and Drug Abuse Patient Records regulations: The Federal rules restrict any use of the information to criminally investigate or prosecute any alcohol or drug abuse patient.[facility] HospitalIn the event this information is protected by the Federal Confidentiality of Alcohol and Drug Abuse Patient Records regulations: The Federal rules restrict any use of the information to criminally investigate or prosecute any alcohol or drug abuse patient.[facility] HospitalIn the event this information is protected by the Federal Confidentiality of Alcohol and Drug Abuse Patient Records regulations: The Federal rules restrict any use of the information to criminally investigate or prosecute any alcohol or drug abuse patient.[facility] HospitalIn the event this information is protected by the Federal Confidentiality of Alcohol and Drug Abuse Patient Records regulations: The Federal rules restrict any use of the information to criminally investigate or prosecute any alcohol or drug abuse patient.[facility] HospitalIn the event this information is protected by the Federal Confidentiality of Alcohol and Drug Abuse Patient Records regulations: The Federal rules restrict any use of the information to criminally investigate or prosecute any alcohol or drug abuse patient.[facility] HospitalIn the event this information is protected by the Federal Confidentiality of Alcohol and Drug Abuse Patient Records regulations: The Federal rules restrict any use of the information to criminally investigate or prosecute any alcohol or drug abuse patient.[facility] HospitalIn the event this information is protected by the Federal Confidentiality of Alcohol and Drug Abuse Patient Records regulations: The Federal rules restrict any use of the information to criminally investigate or prosecute any alcohol or drug abuse patient.[facility] HospitalIn the event this information is protected by the Federal Confidentiality of Alcohol and Drug Abuse Patient Records regulations: The Federal rules restrict any use of the information to criminally investigate or prosecute any alcohol or drug abuse patient.[facility] HospitalIn the event this information is protected by the Federal Confidentiality of Alcohol and Drug Abuse Patient Records regulations: The Federal rules restrict any use of the information to criminally investigate or prosecute any alcohol or drug abuse patient.[facility] HospitalIn the event this information is protected by the Federal Confidentiality of Alcohol and Drug Abuse Patient Records regulations: The Federal rules restrict any use of the information to criminally investigate or prosecute any alcohol or drug abuse patient.[facility] HospitalIn the event this information is protected by the Federal Confidentiality of Alcohol and Drug Abuse Patient Records regulations: The Federal rules restrict any use of the information to criminally investigate or prosecute any alcohol or drug abuse patient.[facility] HospitalIn the event this information is protected by the Federal Confidentiality of Alcohol and Drug Abuse Patient Records regulations: The Federal rules restrict any use of the information to criminally investigate or prosecute any alcohol or drug abuse patient.[facility] HospitalIn the event this information is protected by the Federal Confidentiality of Alcohol and Drug Abuse Patient Records regulations: The Federal rules restrict any use of the information to criminally investigate or prosecute any alcohol or drug abuse patient.[facility] HospitalIn the event this information is protected by the Federal Confidentiality of Alcohol and Drug Abuse Patient Records regulations: The Federal rules restrict any use of the information to criminally investigate or prosecute any alcohol or drug abuse patient.[facility] HospitalIn the event this information is protected by the Federal Confidentiality of Alcohol and Drug Abuse Patient Records regulations: The Federal rules restrict any use of the information to criminally investigate or prosecute any alcohol or drug abuse patient.[facility] HospitalIn the event this information is protected by the Federal Confidentiality of Alcohol and Drug Abuse Patient Records regulations: The Federal rules restrict any use of the information to criminally investigate or prosecute any alcohol or drug abuse patient.[facility] HospitalIn the event this information is protected by the Federal Confidentiality of Alcohol and Drug Abuse Patient Records regulations: The Federal rules restrict any use of the information to criminally investigate or prosecute any alcohol or drug abuse patient.[facility] HospitalIn the event this information is protected by the Federal Confidentiality of Alcohol and Drug Abuse Patient Records regulations: The Federal rules restrict any use of the information to criminally investigate or prosecute any alcohol or drug abuse patient.[facility] HospitalIn the event this information is protected by the Federal Confidentiality of Alcohol and Drug Abuse Patient Records regulations: The Federal rules restrict any use of the information to criminally investigate or prosecute any alcohol or drug abuse patient.[facility] HospitalIn the event this information is protected by the Federal Confidentiality of Alcohol and Drug Abuse Patient Records regulations: The Federal rules restrict any use of the information to criminally investigate or prosecute any alcohol or drug abuse patient.[facility] HospitalIn the event this information is protected by the Federal Confidentiality of Alcohol and Drug Abuse Patient Records regulations: The Federal rules restrict any use of the information to criminally investigate or prosecute any alcohol or drug abuse patient.[facility] HospitalIn the event this information is protected by the Federal Confidentiality of Alcohol and Drug Abuse Patient Records regulations: The Federal rules restrict any use of the information to criminally investigate or prosecute any alcohol or drug abuse patient.[facility] HospitalIn the event this information is protected by the Federal Confidentiality of Alcohol and Drug Abuse Patient Records regulations: The Federal rules restrict any use of the information to criminally investigate or prosecute any alcohol or drug abuse patient.[facility] HospitalIn the event this information is protected by the Federal Confidentiality of Alcohol and Drug Abuse Patient Records regulations: The Federal rules restrict any use of the information to criminally investigate or prosecute any alcohol or drug abuse patient.[facility] HospitalIn the event this information is protected by the Federal Confidentiality of Alcohol and Drug Abuse Patient Records regulations: The Federal rules restrict any use of the information to criminally investigate or prosecute any alcohol or drug abuse patient.[facility] HospitalIn the event this information is protected by the Federal Confidentiality of Alcohol and Drug Abuse Patient Records regulations: The Federal rules restrict any use of the information to criminally investigate or prosecute any alcohol or drug abuse patient.[facility] HospitalIn the event this information is protected by the Federal Confidentiality of Alcohol and Drug Abuse Patient Records regulations: The Federal rules restrict any use of the information to criminally investigate or prosecute any alcohol or drug abuse patient.[facility] HospitalIn the event this information is protected by the Federal Confidentiality of Alcohol and Drug Abuse Patient Records regulations: The Federal rules restrict any use of the information to criminally investigate or prosecute any alcohol or drug abuse patient.[facility] HospitalIn the event this information is protected by the Federal Confidentiality of Alcohol and Drug Abuse Patient Records regulations: The Federal rules restrict any use of the information to criminally investigate or prosecute any alcohol or drug abuse patient.[facility] HospitalIn the event this information is protected by the Federal Confidentiality of Alcohol and Drug Abuse Patient Records regulations: The Federal rules restrict any use of the information to criminally investigate or prosecute any alcohol or drug abuse patient.[facility] HospitalIn the event this information is protected by the Federal Confidentiality of Alcohol and Drug Abuse Patient Records regulations: The Federal rules restrict any use of the information to criminally investigate or prosecute any alcohol or drug abuse patient.[facility] HospitalIn the event this information is protected by the Federal Confidentiality of Alcohol and Drug Abuse Patient Records regulations: The Federal rules restrict any use of the information to criminally investigate or prosecute any alcohol or drug abuse patient.[facility] HospitalIn the event this information is protected by the Federal Confidentiality of Alcohol and Drug Abuse Patient Records regulations: The Federal rules restrict any use of the information to criminally investigate or prosecute any alcohol or drug abuse patient.[facility] HospitalIn the event this information is protected by the Federal Confidentiality of Alcohol and Drug Abuse Patient Records regulations: The Federal rules restrict any use of the information to criminally investigate or prosecute any alcohol or drug abuse patient.[facility] HospitalIn the event this information is protected by the Federal Confidentiality of Alcohol and Drug Abuse Patient Records regulations: The Federal rules restrict any use of the information to criminally investigate or prosecute any alcohol or drug abuse patient.[facility] HospitalIn the event this information is protected by the Federal Confidentiality of Alcohol and Drug Abuse Patient Records regulations: The Federal rules restrict any use of the information to criminally investigate or prosecute any alcohol or drug abuse patient.[facility] HospitalIn the event this information is protected by the Federal Confidentiality of Alcohol and Drug Abuse Patient Records regulations: The Federal rules restrict any use of the information to criminally investigate or prosecute any alcohol or drug abuse patient.[facility] HospitalIn the event this information is protected by the Federal Confidentiality of Alcohol and Drug Abuse Patient Records regulations: The Federal rules restrict any use of the information to criminally investigate or prosecute any alcohol or drug abuse patient.[facility] HospitalIn the event this information is protected by the Federal Confidentiality of Alcohol and Drug Abuse Patient Records regulations: The Federal rules restrict any use of the information to criminally investigate or prosecute any alcohol or drug abuse patient.[facility] HospitalIn the event this information is protected by the Federal Confidentiality of Alcohol and Drug Abuse Patient Records regulations: The Federal rules restrict any use of the information to criminally investigate or prosecute any alcohol or drug abuse patient.[facility] HospitalIn the event this information is protected by the Federal Confidentiality of Alcohol and Drug Abuse Patient Records regulations: The Federal rules restrict any use of the information to criminally investigate or prosecute any alcohol or drug abuse patient.[facility] HospitalIn the event this information is protected by the Federal Confidentiality of Alcohol and Drug Abuse Patient Records regulations: The Federal rules restrict any use of the information to criminally investigate or prosecute any alcohol or drug abuse patient.[facility] HospitalIn the event this information is protected by the Federal Confidentiality of Alcohol and Drug Abuse Patient Records regulations: The Federal rules restrict any use of the information to criminally investigate or prosecute any alcohol or drug abuse patient.[facility] HospitalIn the event this information is protected by the Federal Confidentiality of Alcohol and Drug Abuse Patient Records regulations: The Federal rules restrict any use of the information to criminally investigate or prosecute any alcohol or drug abuse patient.[facility] HospitalIn the event this information is protected by the Federal Confidentiality of Alcohol and Drug Abuse Patient Records regulations: The Federal rules restrict any use of the information to criminally investigate or prosecute any alcohol or drug abuse patient.[facility] HospitalIn the event this information is protected by the Federal Confidentiality of Alcohol and Drug Abuse Patient Records regulations: The Federal rules restrict any use of the information to criminally investigate or prosecute any alcohol or drug abuse patient.[facility] HospitalIn the event this information is protected by the Federal Confidentiality of Alcohol and Drug Abuse Patient Records regulations: The Federal rules restrict any use of the information to criminally investigate or prosecute any alcohol or drug abuse patient.[facility] HospitalIn the event this information is protected by the Federal Confidentiality of Alcohol and Drug Abuse Patient Records regulations: The Federal rules restrict any use of the information to criminally investigate or prosecute any alcohol or drug abuse patient.[facility] HospitalIn the event this information is protected by the Federal Confidentiality of Alcohol and Drug Abuse Patient Records regulations: The Federal rules restrict any use of the information to criminally investigate or prosecute any alcohol or drug abuse patient.[facility] HospitalIn the event this information is protected by the Federal Confidentiality of Alcohol and Drug Abuse Patient Records regulations: The Federal rules restrict any use of the information to criminally investigate or prosecute any alcohol or drug abuse patient.[facility] HospitalIn the event this information is protected by the Federal Confidentiality of Alcohol and Drug Abuse Patient Records regulations: The Federal rules restrict any use of the information to criminally investigate or prosecute any alcohol or drug abuse patient.[facility] HospitalIn the event this information is protected by the Federal Confidentiality of Alcohol and Drug Abuse Patient Records regulations: The Federal rules restrict any use of the information to criminally investigate or prosecute any alcohol or drug abuse patient.[facility] HospitalIn the event this information is protected by the Federal Confidentiality of Alcohol and Drug Abuse Patient Records regulations: The Federal rules restrict any use of the information to criminally investigate or prosecute any alcohol or drug abuse patient.[facility] HospitalIn the event this information is protected by the Federal Confidentiality of Alcohol and Drug Abuse Patient Records regulations: The Federal rules restrict any use of the information to criminally investigate or prosecute any alcohol or drug abuse patient.[facility] HospitalIn the event this information is protected by the Federal Confidentiality of Alcohol and Drug Abuse Patient Records regulations: The Federal rules restrict any use of the information to criminally investigate or prosecute any alcohol or drug abuse patient.[facility] HospitalIn the event this information is protected by the Federal Confidentiality of Alcohol and Drug Abuse Patient Records regulations: The Federal rules restrict any use of the information to criminally investigate or prosecute any alcohol or drug abuse patient.[facility] HospitalIn the event this information is protected by the Federal Confidentiality of Alcohol and Drug Abuse Patient Records regulations: The Federal rules restrict any use of the information to criminally investigate or prosecute any alcohol or drug abuse patient.[facility] HospitalIn the event this information is protected by the Federal Confidentiality of Alcohol and Drug Abuse Patient Records regulations: The Federal rules restrict any use of the information to criminally investigate or prosecute any alcohol or drug abuse patient.[facility] HospitalIn the event this information is protected by the Federal Confidentiality of Alcohol and Drug Abuse Patient Records regulations: The Federal rules restrict any use of the information to criminally investigate or prosecute any alcohol or drug abuse patient.[facility] HospitalIn the event this information is protected by the Federal Confidentiality of Alcohol and Drug Abuse Patient Records regulations: The Federal rules restrict any use of the information to criminally investigate or prosecute any alcohol or drug abuse patient.[facility] HospitalIn the event this information is protected by the Federal Confidentiality of Alcohol and Drug Abuse Patient Records regulations: The Federal rules restrict any use of the information to criminally investigate or prosecute any alcohol or drug abuse patient.[facility] HospitalIn the event this information is protected by the Federal Confidentiality of Alcohol and Drug Abuse Patient Records regulations: The Federal rules restrict any use of the information to criminally investigate or prosecute any alcohol or drug abuse patient.[facility] HospitalIn the event this information is protected by the Federal Confidentiality of Alcohol and Drug Abuse Patient Records regulations: The Federal rules restrict any use of the information to criminally investigate or prosecute any alcohol or drug abuse patient.[facility] HospitalIn the event this information is protected by the Federal Confidentiality of Alcohol and Drug Abuse Patient Records regulations: The Federal rules restrict any use of the information to criminally investigate or prosecute any alcohol or drug abuse patient.[facility] HospitalIn the event this information is protected by the Federal Confidentiality of Alcohol and Drug Abuse Patient Records regulations: The Federal rules restrict any use of the information to criminally investigate or prosecute any alcohol or drug abuse patient.[facility] HospitalIn the event this information is protected by the Federal Confidentiality of Alcohol and Drug Abuse Patient Records regulations: The Federal rules restrict any use of the information to criminally investigate or prosecute any alcohol or drug abuse patient.[facility] HospitalIn the event this information is protected by the Federal Confidentiality of Alcohol and Drug Abuse Patient Records regulations: The Federal rules restrict any use of the information to criminally investigate or prosecute any alcohol or drug abuse patient.[facility] HospitalIn the event this information is protected by the Federal Confidentiality of Alcohol and Drug Abuse Patient Records regulations: The Federal rules restrict any use of the information to criminally investigate or prosecute any alcohol or drug abuse patient.[facility] HospitalIn the event this information is protected by the Federal Confidentiality of Alcohol and Drug Abuse Patient Records regulations: The Federal rules restrict any use of the information to criminally investigate or prosecute any alcohol or drug abuse patient.[facility] HospitalIn the event this information is protected by the Federal Confidentiality of Alcohol and Drug Abuse Patient Records regulations: The Federal rules restrict any use of the information to criminally investigate or prosecute any alcohol or drug abuse patient.[facility] HospitalIn the event this information is protected by the Federal Confidentiality of Alcohol and Drug Abuse Patient Records regulations: The Federal rules restrict any use of the information to criminally investigate or prosecute any alcohol or drug abuse patient.[facility] HospitalIn the event this information is protected by the Federal Confidentiality of Alcohol and Drug Abuse Patient Records regulations: The Federal rules restrict any use of the information to criminally investigate or prosecute any alcohol or drug abuse patient.[facility] HospitalIn the event this information is protected by the Federal Confidentiality of Alcohol and Drug Abuse Patient Records regulations: The Federal rules restrict any use of the information to criminally investigate or prosecute any alcohol or drug abuse patient.[facility] HospitalIn the event this information is protected by the Federal Confidentiality of Alcohol and Drug Abuse Patient Records regulations: The Federal rules restrict any use of the information to criminally investigate or prosecute any alcohol or drug abuse patient.[facility] HospitalIn the event this information is protected by the Federal Confidentiality of Alcohol and Drug Abuse Patient Records regulations: The Federal rules restrict any use of the information to criminally investigate or prosecute any alcohol or drug abuse patient.[facility] HospitalIn the event this information is protected by the Federal Confidentiality of Alcohol and Drug Abuse Patient Records regulations: The Federal rules restrict any use of the information to criminally investigate or prosecute any alcohol or drug abuse patient.[facility] HospitalIn the event this information is protected by the Federal Confidentiality of Alcohol and Drug Abuse Patient Records regulations: The Federal rules restrict any use of the information to criminally investigate or prosecute any alcohol or drug abuse patient.[facility] HospitalIn the event this information is protected by the Federal Confidentiality of Alcohol and Drug Abuse Patient Records regulations: The Federal rules restrict any use of the information to criminally investigate or prosecute any alcohol or drug abuse patient.[facility] HospitalIn the event this information is protected by the Federal Confidentiality of Alcohol and Drug Abuse Patient Records regulations: The Federal rules restrict any use of the information to criminally investigate or prosecute any alcohol or drug abuse patient.[facility] HospitalIn the event this information is protected by the Federal Confidentiality of Alcohol and Drug Abuse Patient Records regulations: The Federal rules restrict any use of the information to criminally investigate or prosecute any alcohol or drug abuse patient.[facility] HospitalIn the event this information is protected by the Federal Confidentiality of Alcohol and Drug Abuse Patient Records regulations: The Federal rules restrict any use of the information to criminally investigate or prosecute any alcohol or drug abuse patient.[facility] HospitalIn the event this information is protected by the Federal Confidentiality of Alcohol and Drug Abuse Patient Records regulations: The Federal rules restrict any use of the information to criminally investigate or prosecute any alcohol or drug abuse patient.[facility] HospitalIn the event this information is protected by the Federal Confidentiality of Alcohol and Drug Abuse Patient Records regulations: The Federal rules restrict any use of the information to criminally investigate or prosecute any alcohol or drug abuse patient.[facility] HospitalIn the event this information is protected by the Federal Confidentiality of Alcohol and Drug Abuse Patient Records regulations: The Federal rules restrict any use of the information to criminally investigate or prosecute any alcohol or drug abuse patient.[facility] HospitalIn the event this information is protected by the Federal Confidentiality of Alcohol and Drug Abuse Patient Records regulations: The Federal rules restrict any use of the information to criminally investigate or prosecute any alcohol or drug abuse patient.[facility] HospitalIn the event this information is protected by the Federal Confidentiality of Alcohol and Drug Abuse Patient Records regulations: The Federal rules restrict any use of the information to criminally investigate or prosecute any alcohol or drug abuse patient.[facility] HospitalIn the event this information is protected by the Federal Confidentiality of Alcohol and Drug Abuse Patient Records regulations: The Federal rules restrict any use of the information to criminally investigate or prosecute any alcohol or drug abuse patient.[facility] HospitalIn the event this information is protected by the Federal Confidentiality of Alcohol and Drug Abuse Patient Records regulations: The Federal rules restrict any use of the information to criminally investigate or prosecute any alcohol or drug abuse patient.[facility] HospitalIn the event this information is protected by the Federal Confidentiality of Alcohol and Drug Abuse Patient Records regulations: The Federal rules restrict any use of the information to criminally investigate or prosecute any alcohol or drug abuse patient.[facility] HospitalIn the event this information is protected by the Federal Confidentiality of Alcohol and Drug Abuse Patient Records regulations: The Federal rules restrict any use of the information to criminally investigate or prosecute any alcohol or drug abuse patient.[facility] HospitalIn the event this information is protected by the Federal Confidentiality of Alcohol and Drug Abuse Patient Records regulations: The Federal rules restrict any use of the information to criminally investigate or prosecute any alcohol or drug abuse patient.[facility] HospitalIn the event this information is protected by the Federal Confidentiality of Alcohol and Drug Abuse Patient Records regulations: The Federal rules restrict any use of the information to criminally investigate or prosecute any alcohol or drug abuse patient.[facility] HospitalIn the event this information is protected by the Federal Confidentiality of Alcohol and Drug Abuse Patient Records regulations: The Federal rules restrict any use of the information to criminally investigate or prosecute any alcohol or drug abuse patient.[facility] HospitalIn the event this information is protected by the Federal Confidentiality of Alcohol and Drug Abuse Patient Records regulations: The Federal rules restrict any use of the information to criminally investigate or prosecute any alcohol or drug abuse patient.[facility] HospitalIn the event this information is protected by the Federal Confidentiality of Alcohol and Drug Abuse Patient Records regulations: The Federal rules restrict any use of the information to criminally investigate or prosecute any alcohol or drug abuse patient.[facility] Reason for Visit (unrecogniz ed section and content) Reason Comments Physical Therapy Specialty Diagnoses / Procedures Referred By Contac t Referred To Contact Physical Therapy / PHYSICAL THERAPY Diagnoses Left hip pain [M25.552] Procedures NEW RS PT ORTH Shanita Berry PA-C [address] [place] [address] Phone: tel: fax: Mary Ann Oscar, KIMANI Referral ID Status Reason Start Date Expiration Date V isits Requested Visits Authorized [id number] Authorized 09/02/2024 09/01/2025 20 20 Reason Comments PT Eval Specialty Diagnoses / Procedures Referred By Contac t Referred To Contact Physical Therapy / PHYSICAL THERAPY Diagnoses Left hip pain [M25.552] Procedures NEW RS PT ORTH Shanita Berry PA-C [address] [place] [address] Mary Ann Oscar, KIMANI Reason Comments PT Discharge Specialty Diagnoses / Procedures Referred By Contac t Referred To Contact PHYSICAL THERAPY Diagnoses Chronic bilateral low back pain with sciatica, sciatica laterality unspecified Procedures CONSULT TO PHYSICAL THERAPY PHYSICAL THERAPY EVALUATION HIGH COMPLEX 45 MINS Shanita Green PA-C [address] [place] [address] Jeancarlos Fraser PT Referral ID Status Reason Start Date Expiration Date Visits Requested Visits Authorized [id number] Authorized Auto-Generat ed Referral 05/14/2023 09/01/2023 20 20 Reason Onset Date Comments Community Monitoring Outreach 12/04/2021 Te lephonic Follow Up Reason Onset Date Comments Community Monitoring Outreach 12/18/2021 Te lephonic Follow Up Reason Comments Toenails jagged and fingernail peeling Reason Comments Results Reason Comments Returning Patient's Call Reason Onset Date Comments Community Monitoring Outreach 01/02/2022 Te lephonic Follow Up Reason Comments Cough cough, SOB and conge stion x 3 days Reason Comments Patient Update Reason Onset Date Comments Community Monitoring Outreach 01/15/2022 Te lephonic Follow Up Reason Onset Date Comments Community Monitoring Outreach 02/01/2022 Te lephonic Follow Up Reason Onset Date Comments Community Monitoring Outreach 02/15/2022 Te lephonic Follow Up Reason Onset Date Comments Community Monitoring Outreach 03/02/2022 Te lephonic Follow Up Reason Onset Date Comments Community Monitoring Outreach 03/06/2022 Te lephonic Follow Up Reason Comments Pain tailbone x 1 week, b oating Reason Onset Date Comments Community Monitoring Outreach 03/20/2022 Te lephonic Follow Up Reason Onset Date Comments Community Monitoring Outreach 03/21/2022 Te lephonic Follow Up Reason Comments Hospital Follow Up Reason Comments Radiology US Specialty Diagnoses / Procedures Referred By Contac t Referred To Contact US IMAGING Diagnoses Enlarged uterus Lower abdominal pain Procedures US FEMALE PELVIS TRANSABD COMPLETE US PELVIC NONOBSTETRIC REAL-TIME IMAGE COMPLETE Shanita Green PA-C [address] [place] [address] [facility] Referral ID Status Reason Start Date Expiration Date V isits Requested Visits Authorized [id number] Closed Auto-Generate d Referral 03/23/2022 04/22/2023 1 1 Reason Comments Results Reason Onset Date Comments Community Monitoring Outreach 04/03/2022 Te lephonic Follow Up Reason Onset Date Comments Community Monitoring Outreach 04/10/2022 Fo llow Up Reason Comments Medication Question Reason Onset Date Comments Community Monitoring Outreach 04/23/2022 CD M Telephonic Follow Up Reason Onset Date Comments [facility] Monitoring Outreach 04/24/2022 CD M Telephonic Follow Up Reason Comments Refill Request Reason Onset Date Comments Community Monitoring Outreach 05/08/2022 CD M Follow Up Reason Comments Recheck Reason Onset Date Comments Community Monitoring Outreach 06/12/2022 CD M Telephonic Reason Onset Date Comments 07/02/2022 CDM Telephonic Reason Comments Cough Chest congestion, SO B, sinus drainage x2 days Reason Comments chest heaviness Covid Positive Reason Comments Covid Diagnosed 07/04/22, c ontinuing to have difficulty breathing Reason Onset Date Comments Community Monitoring Outreach 07/23/2022 CD M Follow Up Reason Comments Well Woman Reason Onset Date Comments Community Monitoring Outreach 08/14/2022 CD M Follow Up Reason Onset Date Comments Refill Request 08/27/2022 Refill Request 08/29/2022 Reason Comments Appointment Reason Onset Date Comments Community Monitoring Outreach 09/17/2022 CD M Reason Comments Physical Reason Onset Date Comments CDM 11/12/2022 Telephonic outre ach Reason Comments Weight Loss Reason Onset Date Comments Refill Request 12/05/2022 Reason Onset Date Comments [facility] 12/07/2022 Telephonic outre ach Reason Comments Referral Information Reason Onset Date Comments [facility] 01/03/2023 Telephonic outre ach Reason Comments Multiple Concerns Headache-persistent with high BP at home; Sleep-difficulty to fall asleep/stay asleep; runny nose Reason Comments Recheck Blood pressure Reason Comments Outside Endocrinology Reason Onset Date Comments CD Telephonic Outreach 02/28/2023 Reason Onset Date Comments Erroneous encounter-disregard 02/28/2023 Reason Comments Medication Request Reason Onset Date Comments Refill Request 04/16/2023 Reason Comments disk request Reason Comments Lab Orders Reason Comments Patient Update Transition Of Care Reason Comments Hospital F/U Reason Comments Cough Reason Comments Consult S/p small bowel obst ruction Specialty Diagnoses / Procedures Referred By Contac t Referred To Contact General Surgery Diagnoses S/p small bowel obstruction Procedures CONSULT TO GENERAL SURGERY OFFICE/OUTPATIENT NEW HIGH MDM 60-74 MINUTES Alex Brown APRN.SENIOR INFORMATICA DEVELOPER [address] [place] [address] Referral ID Status Reason Start Date Expiration Date Visits Requested Visits Authorized [id number] Pending Review PCP Requested Referral 06/04/2023 06/03/2024 1 1 Reason Onset Date Comments [facility] Telephonic Outreach 06/21/2023 Reason Onset Date Comments Refill Request 06/27/2023 Specialty Diagnoses / Procedures Referred By Contac t Referred To Contact US IMAGING Diagnoses Weight loss Ex-smoker Procedures US ABDOMEN COMPLETE US ABDOMINAL REAL TIME W/IMAGE DOCUMENTATION Rito Camp MD [address] [place] [address] [place] [address] Referral ID Status Reason Start Date Expiration Date V isits Requested Visits Authorized [id number] Closed Auto-Generate d Referral 11/19/2022 12/19/2023 [address] Specialty Diagnoses / Procedures Referred By Contac t Referred To Contact CT IMAGING Diagnoses New onset of headaches after age 50 Procedures CTA HEAD W IVCON CT ANGIOGRAPHY HEAD W/CONTRAST/NONCONTRAST Alex Brown APRN.SENIOR INFORMATICA DEVELOPER [id number] [place] [address] Referral ID Status Reason Start Date Expiration Date V isits Requested Visits Authorized [id number] Closed Auto-Generate d Referral 02/15/2023 03/16/2024 1 1 Specialty Diagnoses / Procedures Referred By Contac t Referred To Contact CT IMAGING Diagnoses Ex-smoker Weight loss, unintentional Procedures CT ABD/PEL W IVCON CT ABD & PELVIS W/CONTRAST Rito Camp MD [id number] Imaging [id number] Referral ID Status Reason Start Date Expiration Date V isits Requested Visits Authorized [id number] Closed Auto-Generate d Referral 01/21/2023 01/03/2024 2 2 Specialty Diagnoses / Procedures Referred By Contac t Referred To Contact CT IMAGING Diagnoses Weight loss Ex-smoker Lung nodules Procedures CT CHEST WO IVCON DIAGNOSTIC COMPUTED TOMOGRAPHY THORAX W/O CNTRST Rito Camp MD [address] [place] [address] Ct Imaging [id number] Referral ID Status Reason Start Date Expiration Date V isits Requested Visits Authorized [id number] Closed Auto-Generate d Referral 11/19/2022 12/19/2023 1 1 Reason Onset Date Comments [facility] Telephonic Outreach 07/22/2023 Reason Onset Date Comments [facility] 08/22/2023 Telephonic Outre ach Reason Onset Date Comments Refill Request 10/07/2023 Changing her Pha rmacy Reason Comments right shoulder pain X 2 weeks Reason Onset Date Comments [facility] 10/21/2023 Telephonic Outre ach Reason Onset Date Comments [facility] 10/22/2023 Telephonic Outre ach Reason Comments Patient Update FYI-No Action Needed Reason Onset Date Comments [facility] 11/18/2023 Telephonic Outre ach Reason Comments Results Disc/Report Reason Onset Date Comments [facility] 12/16/2023 Telephonic Outre ach Reason Onset Date Comments [facility] 12/17/2023 Telephonic Outre ach Reason Comments Chest Congestion SOB, cough, non prod uctive, sneezing, chest tightness x 3 days Reason Comments Cough Chest congestion x 4 days Reason Comments ext document CT report Reason Onset Date Comments [facility] 01/14/2024 Telephonic Outre ach Reason Onset Date Comments [facility] 01/15/2024 Telephonic Outre ach Reason Onset Date Comments [facility] 02/12/2024 Telephonic Outre ach Reason Onset Date Comments [facility] 03/11/2024 Telephonic Outre ach Reason Onset Date Comments Refill Request 03/16/2024 Reason Comments Fall Reason Comments Follow Up Left shoulder pain a fter fall on 03/17 Reason Onset Date Comments [facility] 04/06/2024 Telephonic Outre ach Reason Onset Date Comments [facility] 04/07/2024 Telephonic Outre ach Reason Comments Fall Fell 5 days ago- rig ht rib pain Specialty Diagnoses / Procedures Referred By Castillo argueta Referred To Contact MR IMAGING Diagnoses Fall, initial encounter Acute pain of left shoulder Procedures MRI SHOULDER WO/W IVCON LEFT MRI ANY JT UPPER EXTREMITY W/O & W/CONTR Alex Lora APRN.[facility] [address] [place] [address] Mr Imaging [id number] Referral ID Status Reason Start Date Expiration Date V isits Requested Visits Authorized [id number] Closed Auto-Generate d Referral 03/26/2024 04/25/2025 1 1 Reason Onset Date Comments Refill Request 04/27/2024 Reason Onset Date Comments [facility] 05/06/2024 Telephonic Outre ach Reason Onset Date Comments [facility] 05/07/2024 Telephonic Outre ach Reason Comments Urinary Problem Urgency, pain x 3 da ys Reason Comments UTI Reason Comments Cough Chest congestion, he aviness in chest, headache, SOB, sore throat x 3 days Reason Comments Radiology XR Specialty Diagnoses / Procedures Referred By Castillo argueta Referred To Contact Radiology / [facility] Diagnoses Pneumonia due to COVID-19 virus Pneumonia due to COVID-19 virus [U07.1, J12.89] Procedures RADIOLOGIC EXAM CHEST 2 VIEWS XR CHEST Darvin Gold III, MD NO [address]WARDING ADDRESS [facility] [address] [place] [id number] Referral ID Status Reason Start Date Expiration Date Visits Re quested Visits Authorized [id number] Closed 07/23/2020 09/01/2020 1 1 Reason Comments Medication Problem Reason Onset Date Comments [facility] 06/17/2024 Telephonic Outre ach Reason Onset Date Comments [facility] 06/18/2024 Telephonic Outre ach Reason Onset Date Comments [facility] 07/16/2024 Telephonic Outre ach Reason Comments Outside Pulmonary Reason Comments Cough X 3 days Reason Comments side pain Left side pain X2 we eks Reason Onset Date Comments [facility] 08/12/2024 Telephonic Outre ach Reason Onset Date Comments [facility] 08/13/2024 Telephonic Outre ach Reason Comments fax copy of CT Chest to Pulmonary Dr Garnica office Reason Onset Date Comments Refill Request 09/30/2024 Reason Comments Medicare Wellness Exam Reason Comments Outside Speech Therapy Reason Onset Date Comments Refill Request 11/02/2024 Reason Comments Left Hip Pain Reason Onset Date Comments Refill Request 11/09/2024 Reason Comments Outside Anesthesia/Pain Reason Comments Orders Disc Request Reason Onset Date Comments Refill Request 11/30/2024 Reason Comments Patient Question Reason Comments Outside Imaging CT Reason Comments Toe Pain (Toe) Right fourth digit x 1 week Reason Comments Buttock Pain Bilateral radiates d own leg. Has been having more brusing left arm Reason Comments Insurance Authorization Reason Onset Date Comments Refill Request 03/22/2025 Care Teams (unrecognized sec tion and content) Pretzel Twisting Machine Operator Relationship Specialty Start Date End Date Rito Camp MD [address] [place], [place] [id number] PCP - General Family Practice 01/27/21 Kami Hunter software configuration specialistImpress Associate 04/27/21 Suleman Gustafson [address] [place] [phone] Grain Merchandising Manager 04/27/21 Pretzel Twisting Machine Operator Relationship Specialty Start Date End Date Rito Camp MD [address] [place], [place] [id number] PCP - General Family Practice 01/27/21 Kami Hunter RN Impress Associate 04/27/21 Suleman Gustafson [address] [place] [phone] Grain Merchandising Manager 04/27/21 Pretzel Twisting Machine Operator Relationship Specialty Start Date End Date Rito Camp MD [address] [place] [address] PCP - General Family Practice 01/27/21 Kami Hunter software configuration specialistImpress Associate 04/27/21 Suleman Gustafson [address] [place] [address] Grain Merchandising Manager 04/27/21 Pretzel Twisting Machine Operator Relationship Specialty Start Date End Date Rito Camp MD [address] [place] [address] PCP - General Family Practice 01/27/21 Kami Hunter RN Impress Associate 04/27/21 Suleman Gustafson [address] [place] [address] Grain Merchandising Manager 04/27/21 Pretzel Twisting Machine Operator Relationship Specialty Start Date End Date Rito Camp MD [address] [place] [address] PCP - General Family Practice 01/27/21 Kami Hunter software configuration specialistImpress Associate 04/27/21 Suleman Gustafson [address] [place] [address] Grain Merchandising Manager 04/27/21 Pretzel Twisting Machine Operator Relationship Specialty Start Date End Date Rito Camp MD [address] [place] [address] PCP - General Family Practice 01/27/21 Kami Hunter RN [address] [place] [address] Impress Associate 04/27/21 Suleman Gustafson [address] [place] [place] [address] Grain Merchandising Manager 04/27/21 Pretzel Twisting Machine Operator Relationship Specialty Start Date End Date Rito Camp MD [address] [place] [address] PCP - General Family Practice 01/27/21 Kami Hunter, RN [address] [place] [address] Impress Associate 04/27/21 Suleman Gustafson [address] [place] [address] Grain Merchandising Manager 04/27/21 Pretzel Twisting Machine Operator Relationship Specialty Start Date End Date Rito Camp MD [address] [place] [address] PCP - General Family Practice 01/27/21 Kami Hunter, ELDER [address] [place] [address] Impress Associate 04/27/21 Suleman Gustafson [address] [place] [address] Grain Merchandising Manager 04/27/21 Pretzel Twisting Machine Operator Relationship Specialty Start Date End Date Rito Camp MD [address] [place] [address] PCP - General Family Practice 01/27/21 Kami Hunter, RN [address] [place] [address] Impress Associate 04/27/21 Suleman Gustafson [address] [place] [address] Grain Merchandising Manager 04/27/21 Pretzel Twisting Machine Operator Relationship Specialty Start Date End Date Rito Camp MD [address] [place] [address] PCP - General Family Practice 01/27/21 Kami Hunter, ELDER [address] [place] [address] Impress Associate 04/27/[address] S[address]man [address]afson [address] [place] [address] Grain Merchandising Manager 04/27/21 Pretzel Twisting Machine Operator Relationship Specialty Start Date End Date Rito Camp MD [address] [place] [address] PCP - General Family Practice 01/27/21 Kami Hunter RN [address] [place] [address] Impress Associate 04/27/21 Suleman Gustafson [address] [place] [address] Grain Merchandising Manager 04/27/21 Pretzel Twisting Machine Operator Relationship Specialty Start Date End Date Rito Camp MD [address] [place] [address] PCP - General Family Practice 01/27/21 Kami Hunter RN [address] [place] [address] Impress Associate 04/27/21 Suleman Gustafson [address] [place] [address] Grain Merchandising Manager 04/27/21 Pretzel Twisting Machine Operator Relationship Specialty Start Date End Date Rito Camp MD [address] [place] [address] PCP - General Family Practice 01/27/21 Kami Hunter, ELDER [address] [place] [address] Impress Associate 04/27/21 Suleman Gustafson [address] [place] [address] Grain Merchandising Manager 04/27/21 Pretzel Twisting Machine Operator Relationship Specialty Start Date End Date Rito Camp MD [address] [place] [address] PCP - General Family Practice 01/27/21 Kami Hunter RN [address] [place] [address] Impress Associate 04/27/21 Suleman Gustafson [address] [place] [address] Grain Merchandising Manager 04/27/21 Pretzel Twisting Machine Operator Relationship Specialty Start Date End Date Rito Camp MD [address] [place] [address] PCP - General Family Practice 01/27/21 Kami Hunter, ELDER [address] [place] [address] Impress Associate 04/27/21 Suleman Gustafson [address] [place] [facility] [address] Grain Merchandising Manager 04/27/21 Pretzel Twisting Machine Operator Relationship Specialty Start Date End Date Rito Camp MD [address] [place] [address] PCP - General Family Practice 01/27/21 Kami Hunter, ELDER [address] [place] [address] Impress Associate 04/27/21 Suleman Gustafson [address] [place] [address] Grain Merchandising Manager 04/27/21 Pretzel Twisting Machine Operator Relationship Specialty Start Date End Date Rito Camp MD [address] [place] [address] PCP - General Family Practice 01/27/21 Kami Hunter RN [address] [place] [address] Impress Associate 04/27/21 Suleman Gustafson [address] [place] [address] Grain Merchandising Manager 04/27/21 Pretzel Twisting Machine Operator Relationship Specialty Start Date End Date Rito Camp MD [address] [place] [address] PCP - General Family Medicine 01/27/21 Kami Hunter RN [address] [place] [address] Impress Associate 04/27/21 Suleman Gustafson [address] [place] [address] Grain Merchandising Manager 04/27/21 Pretzel Twisting Machine Operator Relationship Specialty Start Date End Date Rito Camp MD [address] [place] [address] PCP - General Family Medicine 01/27/21 Kami Hunter RN [address] [place] [address] Impress Associate 04/27/21 Suleman Gustafson [address] [place] [address] Grain Merchandising Manager 04/27/21 Pretzel Twisting Machine Operator Relationship Specialty Start Date End Date Rito Camp MD [address] [place] [address] PCP - General Family Medicine 01/27/21 Kami Hunter, ELDER [address] [place] [address] Impress Associate 04/27/21 Suleman Gustafson [address] [facility] [place] [address] Grain Merchandising Manager 04/27/21 Pretzel Twisting Machine Operator Relationship Specialty Start Date End Date Rito Camp MD [address] [place] [address] PCP - General Family Medicine 01/27/21 Kami Hunter, ELDER [address] [place] [address] Impress Associate 04/27/21 Suleman Gustafson [address] [facility] [place] [address] Grain Merchandising Manager 04/27/21 Pretzel Twisting Machine Operator Relationship Specialty Start Date End Date Rito Camp MD [address] [place] [address] PCP - General Family Medicine 01/27/21 Kami Hunter RN [address] [place] [address] Impress Associate 04/27/21 Suleman Gustafson [address] [facility] [place] [address] Grain Merchandising Manager 04/27/21 Pretzel Twisting Machine Operator Relationship Specialty Start Date End Date Rito Camp MD [address] [place] [address] PCP - General Family Medicine 01/27/21 Kami Hunter RN [address] [place] [address] Impress Associate 04/27/21 Suleman Gustafson [address] [place] [address] Grain Merchandising Manager 04/27/21 Pretzel Twisting Machine Operator Relationship Specialty Start Date End Date Rito Camp MD [address] [place] [address] PCP - General Family Medicine 01/27/21 Kami Hunter, RN [address] [place] [address] Impress Associate 04/27/21 Suleman Gustafson [address] [place] [facility] [address] Grain Merchandising Manager 04/27/21 Pretzel Twisting Machine Operator Relationship Specialty Start Date End Date Rito Camp MD [address] [place] [address] PCP - General Family Medicine 01/27/21 Kami Hunter, RN [address] [place] [address] Impress Associate 04/27/21 Suleman Gustafson [address] [place] [address] Grain Merchandising Manager 04/27/21 Pretzel Twisting Machine Operator Relationship Specialty Start Date End Date Rito Camp MD [address] [place] [address] PCP - General Family Medicine 01/27/21 Kami Hunter, RN [address] [place] [address] Impress Associate 04/27/21 Suleman Gustafson [address] [place] [address] Grain Merchandising Manager 04/27/21 Pretzel Twisting Machine Operator Relationship Specialty Start Date End Date Rito Camp MD [address] [place] [address] PCP - General Family Medicine 01/27/21 Kami Hunter, ELDER [address] [place] [id number] Impress Associate 04/27/21 Suleman Gustafson [address] [place] [address] Grain Merchandising Manager 04/27/21 Pretzel Twisting Machine Operator Relationship Specialty Start Date End Date Rito Camp MD [address] [place] [address] PCP - General Family Medicine 01/27/21 Suleman Gustafson [address] [place] [address] Grain Merchandising Manager 04/27/21 Ruth Denton, software configuration specialistImpress Associate 09/26/22 Pretzel Twisting Machine Operator Relationship Specialty Start Date End Date Rito Camp MD [address] [place] [address] PCP - General Family Medicine 01/27/21 Suleman Gustafson [address] [place] [address] Grain Merchandising Manager 04/27/21 Ruth Denton, software configuration specialistImpress Associate 09/26/22 Pretzel Twisting Machine Operator Relationship Specialty Start Date End Date Rito Camp MD [address] [place] [address] PCP - General Family Medicine 01/27/21 Suleman Gustafson [address] [place] [address] Grain Merchandising Manager 04/27/21 Ruth Denton, software configuration specialistImpress Associate 09/26/22 Pretzel Twisting Machine Operator Relationship Specialty Start Date End Date Rito Camp MD [address] [place] [address] PCP - General Family Medicine 01/27/21 Suleman Gustafson [address] [place] [facility] [address] Grain Merchandising Manager 04/27/21 Ruth Denton, software configuration specialistImpress Associate 09/26/22 Pretzel Twisting Machine Operator Relationship Specialty Start Date End Date Rito Camp MD [address] [place] [address] PCP - General Family Medicine 01/27/21 Suleman Gustafson [address] [place] [address] Grain Merchandising Manager 04/27/21 Ruth Denton, software configuration specialistImpress Associate 09/26/22 Pretzel Twisting Machine Operator Relationship Specialty Start Date End Date Rito Camp MD [address] [place] [address] PCP - General Family Medicine 01/27/21 Suleman Gustafson [address] [place] [address] Grain Merchandising Manager 04/27/21 Ruth Denton, software configuration specialistImpress Associate 09/26/22 Pretzel Twisting Machine Operator Relationship Specialty Start Date End Date Rito Camp MD [address] [place] [address] PCP - General Family Medicine 01/27/21 Suleman Gustafson [address] [place] [address] Grain Merchandising Manager 04/27/21 Ruth Denton, software configuration specialistImpress Associate 09/26/22 Pretzel Twisting Machine Operator Relationship Specialty Start Date End Date Rito Camp MD [address] [place] [address] PCP - General Family Medicine 01/27/21 Suleman Gustafson [address] [place] [address] Grain Merchandising Manager 04/27/21 Ruth Denton, software configuration specialistImpress Associate 09/26/22 Pretzel Twisting Machine Operator Relationship Specialty Start Date End Date Rito Camp MD [address] [place] [address] PCP - General Family Medicine 01/27/21 Suleman Gustafson [address] [place] [facility] [address] Grain Merchandising Manager 04/27/21 Kerrie Damian RN [address] [place] [address] Impress Associate 02/04/23 Pretzel Twisting Machine Operator Relationship Specialty Start Date End Date Rito Camp MD [address] [place] [address] PCP - General Family Medicine 01/27/21 Suleman Gustafson [address] [place] [address] Grain Merchandising Manager 04/27/21 Kerrie Damian RN [address] [place] [address] Impress Associate 02/04/23 Pretzel Twisting Machine Operator Relationship Specialty Start Date End Date Rito Camp MD [address] [place] [address] PCP - General Family Medicine 01/27/21 Suleman Gustafson [address] [place] [address] Grain Merchandising Manager 04/27/21 Kerrie Damian, RN [address] [facility] [place] [address] Impress Associate 02/04/23 Pretzel Twisting Machine Operator Relationship Specialty Start Date End Date Rito Camp MD [address] [place] [address] PCP - General Family Medicine 01/27/21 Suleman Gustafson [address] [place] [facility] [address] Grain Merchandising Manager 04/27/21 Kerrie Damian, ELDER [address] [place] [address] Impress Associate 02/04/23 Pretzel Twisting Machine Operator Relationship Specialty Start Date End Date Rito Camp MD [address] [place] [address] PCP - General Family Medicine 01/27/21 Suleman Gustafson [address] [place] [facility] [address] Grain Merchandising Manager 04/27/21 Kerrie Damian, ELDER [address] [place] [address] Impress Associate 02/04/23 Pretzel Twisting Machine Operator Relationship Specialty Start Date End Date Rito Camp MD [address] [place] [address] PCP - General Family Medicine 01/27/21 Suleman Gustafson [address] [place] [facility] [address] Grain Merchandising Manager 04/27/21 Kerrie Damian, RN [address] [place] [address] Impress Associate 02/04/23 Pretzel Twisting Machine Operator Relationship Specialty Start Date End Date Rito Camp MD [address] [place] [address] PCP - General Family Medicine 01/27/21 Suleman Gustafson [address] [place] [address] Grain Merchandising Manager 04/27/21 Kerrie Damian, ELDER [address] [place] [address] Impress Associate 02/04/23 Pretzel Twisting Machine Operator Relationship Specialty Start Date End Date Rito Camp MD [address] [place] [address] PCP - General Family Medicine 01/27/21 Suleman Gustafson [address] [place] [place] [address] Grain Merchandising Manager 04/27/21 Kerrie Damian RN [address] [place] [address] Impress Associate 02/04/23 Pretzel Twisting Machine Operator Relationship Specialty Start Date End Date Rito Camp MD [address] [place] [address] PCP - General Family Medicine 01/27/21 Suleman Gustafson [address] [place] [address] Grain Merchandising Manager 04/27/21 Kerrie Damian, ELDER [address] [place] [address] Impress Associate 02/04/23 Team Status: Active Member Role Status Dates Dr. Darvin Gold III, MD Family Provider Active Dr. Rito Camp MD Primary Care Provider Active Team Status: Inactive Member Role Status Dates Dr. Rito Camp MD Primary Care Provider, Referri ng Provider Active Sierra Dee VOLTAGE TESTER, VOLTAGE TESTER-C Attending Provider Active Team Status: Inactive Member Role Status Dates Dr. Rito Camp MD Primary Care Provider, Referri ng Provider Active Dr. Jeffrey Mckee MD Attending Provider Active Team Status: Inactive Member Role Status Dates Dr. Rito Camp MD Primary Care Provider Active Dr. Raymundo Mercado DO Attending Provider, Emergency P sincere Active Team Status: Active Member Role Status Dates Dr. Rito Camp MD Primary Care Provider Active Dr. Tyler Green DO Emergency Provider Active Dr. Boby Jordan MD Admit Provider, Attending Pro vider Active Team Status: Active Member Role Status Dates Dr. Rito Camp MD Primary Care Provider Active Dr. Tyler Green DO Emergency Provider Active Dr. Boby Jordan MD Admit Provider, Attending Provider, Other Provider Active Team Status: Active Member Role Status Dates Dr. Rito Camp MD Primary Care Provider Active Dr. Tyler Green DO Emergency Provider Active Dr. Boby Jordan MD Admit Provider, Other Provide r Active Dr. Mick Pelletier MD Other Provider Active Dr. Jazz Collins MD Attending Provider, Other Pro vider Active Team Status: Active Member Role Status Dates Dr. Rito Camp MD Primary Care Provider Active Dr. Tyler Green DO Emergency Provider Active Dr. Boby Jordan MD Admit Provider, Other Provide r Active Dr. Mick Pelletier MD Attending Provider, Other Provider Active Dr. Jazz Collins MD Other Provider Active Team Status: Inactive Member Role Status Dates Dr. Rito Camp MD Primary Care Provider Active Dr. Tyler Green DO Emergency Provider Active Dr. Boby Jordan MD Admit Provider, Other Provide r Active Dr. Mick Pelletier MD Attending Provider Active Dr. Jazz Collins MD Other Provider Active Pretzel Twisting Machine Operator Relationship Specialty Start Date End Date Rito Camp MD [address] [place] [address] PCP - General Family Medicine 01/27/21 Suleman Gustafson [address] [place] [address] Grain Merchandising Manager 04/27/21 Kerrie Damian, ELDER [address] [place] [address] Impress Associate 02/04/23 Pretzel Twisting Machine Operator Relationship Specialty Start Date End Date Rito Camp MD [address] [place] [address] PCP - General Family Medicine 01/27/21 Suleman Gustafson [address] [place] [address] Grain Merchandising Manager 04/27/21 Kerrie Damian RN [address] [place] [address] Impress Associate 02/04/23 Pretzel Twisting Machine Operator Relationship Specialty Start Date End Date Rito Camp MD [address] [place] [address] PCP - General Family Medicine 01/27/21 Suleman Gustafson [address] [place] [address] Grain Merchandising Manager 04/27/21 Kerrie Damian RN [address] [place] [address] Impress Associate 02/04/23 Pretzel Twisting Machine Operator Relationship Specialty Start Date End Date Rito Camp MD [address] [place] [address] PCP - General Family Medicine 01/27/21 Suleman Gustafson [address] [place] [address] Grain Merchandising Manager 04/27/21 Kerrie Damian, ELDER [address] [facility] [place] [address] Impress Associate 02/04/23 Pretzel Twisting Machine Operator Relationship Specialty Start Date End Date Rito Camp MD [address] [place] [address] PCP - General Family Medicine 01/27/21 Suleman Gustafson [address] [place] [address] Grain Merchandising Manager 04/27/21 Kerrie Damian, ELDER [address] [place] [address] Impress Associate 02/04/23 Pretzel Twisting Machine Operator Relationship Specialty Start Date End Date Rito Camp MD [address] [place] [address] PCP - General Family Medicine 01/27/21 Suleman Gustafson [address] [place] [address] Grain Merchandising Manager 04/27/21 Kerrie Damian RN [address] [place] [address] Impress Associate 02/04/23 Pretzel Twisting Machine Operator Relationship Specialty Start Date End Date Rito Camp MD [address] [place] [address] PCP - General Family Medicine 01/27/21 Suleman Gustafson [address] [place] [address] Grain Merchandising Manager 04/27/21 Kerrie Damian RN [address] [place] [address] Impress Associate 02/04/23 Pretzel Twisting Machine Operator Relationship Specialty Start Date End Date Rito Camp MD [address] [place] [address] PCP - General Family Medicine 01/27/21 Suleman Gustafson [address] [place] [address] Grain Merchandising Manager 04/27/21 Ruth Denton, software configuration specialistImpress Associate 09/26/22 02/03/23 Pretzel Twisting Machine Operator Relationship Specialty Start Date End Date Rito Camp MD [address] [place] [address] PCP - General Family Medicine 01/27/21 Kami Hunter RN [address] [place] [address] Impress Associate 04/27/2109/03 Suleman Gustafson [address] [place] [address] Grain Merchandising Manager 04/27/21 Pretzel Twisting Machine Operator Relationship Specialty Start Date End Date Rito Camp MD [address] [place] [address] PCP - General Family Medicine 01/27/21 Suleman Gustafson [address] [place] [address] Grain Merchandising Manager 04/27/21 Ruth Denton, software configuration specialistImpress Associate 09/26/22 02/03/23 Pretzel Twisting Machine Operator Relationship Specialty Start Date End Date Rito Camp MD [address] [place] [address] PCP - General Family Medicine 01/27/21 Suleman Gustafson [address] [place] [address] Grain Merchandising Manager 04/27/21 Kerrie Damian RN [address] [place], [place] [address] Impress Associate 02/04/23 Pretzel Twisting Machine Operator Relationship Specialty Start Date End Date Rito Camp MD [address] [place] [address] PCP - General Family Medicine 01/27/21 Suleman Gustafson [address] [place] [address] Grain Merchandising Manager 04/27/21 Ruth Denton, software configuration specialistImpress Associate 09/26/22 02/03/23 Pretzel Twisting Machine Operator Relationship Specialty Start Date End Date Rito Camp MD [address] [place] [address] PCP - General Family Medicine 01/27/21 Suleman Gustafson [address] [place] [address] Grain Merchandising Manager 04/27/21 Ruth Denton, software configuration specialistImpress Associate 09/26/22 02/03/23 Pretzel Twisting Machine Operator Relationship Specialty Start Date End Date Rito Camp MD [address] [place] [address] PCP - General Family Medicine 01/27/21 Suleman Gustafson [address] [place] [address] Grain Merchandising Manager 04/27/21 Kerrie Damian, ELDER [address] [place] [address] Impress Associate 02/04/23 Pretzel Twisting Machine Operator Relationship Specialty Start Date End Date Rito Camp MD [address] [place] [address] PCP - General Family Medicine 01/27/21 Suleman Gustafson [address] [place] [address] Grain Merchandising Manager 04/27/21 Kerrie Damian, ELDER [address] [place] [address] Impress Associate 02/04/23 Pretzel Twisting Machine Operator Relationship Specialty Start Date End Date Rito Camp MD [address] [place] [address] PCP - General Family Medicine 01/27/21 Suleman Gustafson [address] [place] [address] Grain Merchandising Manager 04/27/21 Kerrie Damian, ELDER [address] [place] [address] Impress Associate 02/04/23 Pretzel Twisting Machine Operator Relationship Specialty Start Date End Date Rito Camp MD [address] [place] [address] PCP - General Family Medicine 01/27/21 Suleman Gustafson [address] [place] [address] Grain Merchandising Manager 04/27/21 Christine Parker, software configuration specialistImpress Associate 08/15/23 Pretzel Twisting Machine Operator Relationship Specialty Start Date End Date Rito Camp MD [address] [place] [address] PCP - General Family Medicine 01/27/21 Suleman Gustafson [address] [place] [address] Grain Merchandising Manager 04/27/21 Christine Parker, software configuration specialistImpress Associate 08/15/23 Pretzel Twisting Machine Operator Relationship Specialty Start Date End Date Rito Camp MD [address] [place] [address] PCP - General Family Medicine 01/27/21 Suleman Gustafson [address] [facility] [place] [address] Grain Merchandising Manager 04/27/21 Christine Parker, software configuration specialistImpress Associate 08/15/23 Pretzel Twisting Machine Operator Relationship Specialty Start Date End Date Rito Camp MD [address] [place] [address] PCP - General Family Medicine 01/27/21 Suleman Gustafson [address] [place] [address] Grain Merchandising Manager 04/27/21 Christine Parker, software configuration specialistImpress Associate 08/15/23 Pretzel Twisting Machine Operator Relationship Specialty Start Date End Date Rito Camp MD [address] [place] [address] PCP - General Family Medicine 01/27/21 Suleman Gustafson [address] [place] [address] Grain Merchandising Manager 04/27/21 Christine Parker, software configuration specialistImpress Associate 08/15/23 Pretzel Twisting Machine Operator Relationship Specialty Start Date End Date Rito Camp MD [address] [place] [address] PCP - General Family Medicine 01/27/21 Suleman Gustafson [address] [place] [address] Grain Merchandising Manager 04/27/21 Christine Parker, software configuration specialistImpress Associate 08/15/23 Pretzel Twisting Machine Operator Relationship Specialty Start Date End Date Rito Camp MD [address] [place] [address] PCP - General Family Medicine 01/27/21 Suleman Gustafson [address] [place] [address] Grain Merchandising Manager 04/27/21 Christine Parker, software configuration specialistImpress Associate 08/15/23 Pretzel Twisting Machine Operator Relationship Specialty Start Date End Date Rito Camp MD [address] [place] [address] PCP - General Family Medicine 01/27/21 Suleman Gustafson [address] [place] [address] Grain Merchandising Manager 04/27/21 Christine Parker, software configuration specialistImpress Associate 08/15/23 Pretzel Twisting Machine Operator Relationship Specialty Start Date End Date Rito Camp MD [address] [place] [address] PCP - General Family Medicine 01/27/21 Suleman Gustafson [address] [place] [address] Grain Merchandising Manager 04/27/21 Christine Parker, software configuration specialistImpress Associate 08/15/23 Team Status: Inactive Member Role Status Dates Dr. Rito Camp MD Primary Care Provider Active Sierra Dee VOLTAGE TESTER, VOLTAGE TESTER-C Attending Provider, Ruth reza Provider Active Pretzel Twisting Machine Operator Relationship Specialty Start Date End Date Rito Camp MD [address] [place] [address] PCP - General Family Medicine 01/27/21 Suleman Gustafson [address] [place] [address] Grain Merchandising Manager 04/27/21 Christine Parker, software configuration specialistImpress Associate 08/15/23 Pretzel Twisting Machine Operator Relationship Specialty Start Date End Date Rito Camp MD [address] [place] [address] PCP - General Family Medicine 01/27/21 Suleman Gustafson [address] [place] [address] Grain Merchandising Manager 04/27/21 Christine Parker, software configuration specialistImpress Associate 08/15/23 Pretzel Twisting Machine Operator Relationship Specialty Start Date End Date Rito Camp MD [address] [place] [address] PCP - General Family Medicine 01/27/21 Suleman Gustafson [address] [place] [address] Grain Merchandising Manager 04/27/21 Christine Parker, software configuration specialistImpress Associate 08/15/23 Pretzel Twisting Machine Operator Relationship Specialty Start Date End Date Rito Camp MD [address] [place] [address] PCP - General Family Medicine 01/27/21 Suleman Gutsafson [address] [place] [address] Grain Merchandising Manager 04/27/21 Christine Parker, software configuration specialistImpress Associate 08/15/23 Pretzel Twisting Machine Operator Relationship Specialty Start Date End Date Rito Camp MD [address] [place] [address] PCP - General Family Medicine 01/27/21 Suleman Gustafson [address] [place] [address] Grain Merchandising Manager 04/27/21 Christine Parker, software configuration specialistImpress Associate 08/15/23 Pretzel Twisting Machine Operator Relationship Specialty Start Date End Date Rito Camp MD [address] [place] [address] PCP - General Family Medicine 01/27/21 Suleman Gustafson [address] [place] [address] Grain Merchandising Manager 04/27/21 Christine Parker, software configuration specialistImpress Associate 08/15/23 Pretzel Twisting Machine Operator Relationship Specialty Start Date End Date Rito Camp MD [address] [place] [address] PCP - General Family Medicine 01/27/21 Suleman Gustafson [address] [place] [address] Grain Merchandising Manager 04/27/21 Christine Parker, software configuration specialistImpress Associate 08/15/23 Pretzel Twisting Machine Operator Relationship Specialty Start Date End Date Rito Camp MD [address] [place] [address] PCP - General Family Medicine 01/27/21 Suleman Gustafson [address] [place] [address] Grain Merchandising Manager 04/27/21 Ruth Denton, software configuration specialistImpress Associate 09/26/22 02/03/23 Pretzel Twisting Machine Operator Relationship Specialty Start Date End Date Rito Camp MD [address] [place] [address] PCP - General Family Medicine 01/27/21 Kami Hunter RN [address] [id number] Impress Associate 04/27/2109/03 Suleman Gustafson [address] [place] [address] Grain Merchandising Manager 04/27/21 Pretzel Twisting Machine Operator Relationship Specialty Start Date End Date Rito Camp MD [address] [place] [address] PCP - General Family Medicine 01/27/21 Kami Hunter RN [address] [place] [address] Impress Associate 04/27/21/12/23 Suleman Gustafson [address] [place] [address] Grain Merchandising Manager 04/27/21 Pretzel Twisting Machine Operator Relationship Specialty Start Date End Date Rito Camp MD [address] [place], [place] [address]3341 PCP - General Family Medicine 01/27/21 Suleman Gustafson [address] [place] [address] Grain Merchandising Manager 04/27/21 Christine Parker, software configuration specialistImpress Associate 08/15/23 Pretzel Twisting Machine Operator Relationship Specialty Start Date End Date Darvin Gold III, MD NO FORWARDING ADDRESS PCP - General 11/30/02 01/26/21 Pretzel Twisting Machine Operator Relationship Specialty Start Date End Date Darvin Gold III, MD NO FORWARDING ADDRESS PCP - General 11/30/02 01/26/21 Pretzel Twisting Machine Operator Relationship Specialty Start Date End Date Darvin Gold III, MD NO FORWARDING ADDRESS PCP - General 11/30/02 01/26/21 Pretzel Twisting Machine Operator Relationship Specialty Start Date End Date Rito Camp MD [address] [place], [place] [address] PCP - General Family Medicine 01/27/21 Suleman Gustafson [address] [place] [phone] Grain Merchandising Manager 04/27/21 Christine Parker, software configuration specialistImpress Associate 08/15/23 Pretzel Twisting Machine Operator Relationship Specialty Start Date End Date Rito Camp MD [address] [place], [place] [phone] PCP - General Family Medicine 01/27/21 Suleman Gustafson [address] [place] [address] Grain Merchandising Manager 04/27/21 Christine Parker, software configuration specialistImpress Associate 08/15/23 Pretzel Twisting Machine Operator Relationship Specialty Start Date End Date Rito Camp MD [address] [facility] [place] [address] PCP - General Family Medicine 01/27/21 Suleman Gustafson [address] [place] [address] Grain Merchandising Manager 04/27/21 Christine Parker RN Impress Associate 08/15/23 Pretzel Twisting Machine Operator Relationship Specialty Start Date End Date Rito Camp MD [address] [facility] [place] [address] PCP - General Family Medicine 01/27/21 Suleman Gustafson [address] [place] [address] Grain Merchandising Manager 04/27/21 Christine Parker, software configuration specialistImpress Associate 08/15/23 Pretzel Twisting Machine Operator Relationship Specialty Start Date End Date Rito Camp MD [address] [facility] [place] [address] PCP - General Family Medicine 01/27/21 Suleman Gustafson [address] [place] [address] Grain Merchandising Manager 04/27/21 Christine Parker, software configuration specialistImpress Associate 08/15/23 Pretzel Twisting Machine Operator Relationship Specialty Start Date End Date Rito Camp MD [address] [place], [place] [address] PCP - General Family Medicine 01/27/21 Suleman Gustafson [address] [place] [phone] Grain Merchandising Manager 04/27/21 Christine Parker RN Impress Associate 08/15/23 Alex Brown APRN.SENIOR INFORMATICA DEVELOPER [address] [place] [address] Outpatient Case Manager Family [facility] 08/08/24 Shanita Green PA-C [address] [place] [address] [facility] Pretzel Twisting Machine Operator Relationship Specialty Start Date End Date Rito Camp MD [address] [place] [address] PCP - General Family Medicine 01/27/21 Suleman Gustafson [address] [place] [address] Grain Merchandising Manager 04/27/21 Alex Brown APRN.SENIOR INFORMATICA DEVELOPER [address] [place] [address] [facility] 08/08/24 Shanita Green PA-C [address] [place] [address] Outpatient Case Manager Family [facility] 08/08/24 Pretzel Twisting Machine Operator Relationship Specialty Start Date End Date Rito Camp MD [address] [place] [address] PCP - General Family Medicine 01/27/21 Suleman Gustafson [address] [place] [address] Grain Merchandising Manager 04/27/21 Alex Brown, ALAN.SENIOR INFORMATICA DEVELOPER [address] [facility] [place] [address] Outpatient Case Manager Family Medicine 08/08/24 Shanita Green PA-C [address] [place] [address] Outpatient Case Manager Family Medicine 08/08/24 Pretzel Twisting Machine Operator Relationship Specialty Start Date End Date Rito Camp MD [address] [place] [address] PCP - General Family Medicine 01/27/21 Suleman Gustafson [address] [place] [address] Grain Merchandising Manager 04/27/21 Alex Brown, ALAN.SENIOR INFORMATICA DEVELOPER [address] [facility] [place] [address] Outpatient Case Manager Family Medicine 08/08/24 Shanita Green PA-C [address] [place] [address] Outpatient Case Manager Family Medicine 08/08/24 Pretzel Twisting Machine Operator Relationship Specialty Start Date End Date Rito Camp MD [address] [place] [address] PCP - General Family Medicine 01/27/21 Suleman Gustafson [address] [place] [address] Grain Merchandising Manager 04/27/21 Alex Brown APRN.SENIOR INFORMATICA DEVELOPER [address] [place] [address] Outpatient Case Manager Family Medicine 08/08/24 Shanita Green PA-C [address] [place] [address] Outpatient Case Manager Family Medicine 08/08/24 Pretzel Twisting Machine Operator Relationship Specialty Start Date End Date Rito Camp MD [address] [place] [address] PCP - General Family Medicine 01/27/21 Suleman Gustafson [address] [place] [address] Grain Merchandising Manager 04/27/21 Alex Brown APRN.SENIOR INFORMATICA DEVELOPER [address] [place] [address] Outpatient Case Manager Family Medicine 08/08/24 Shanita Green PA-C [address] [place] [address] Outpatient Case Manager Family Medicine 08/08/24 Pretzel Twisting Machine Operator Relationship Specialty Start Date End Date Rito Camp MD [address] [place] [address] PCP - General Family Medicine 01/27/21 Suleman Gustafson [address] [place] [address] Grain Merchandising Manager 04/27/21 Alex Brown APRN.SENIOR INFORMATICA DEVELOPER [address] [facility] [place] [place] [address] Outpatient Case Manager Family Medicine 08/08/24 Shanita Grene PA-C [address] [place] [address] [facility] 08/08/24 Pretzel Twisting Machine Operator Relationship Specialty Start Date End Date Rito Camp MD [address] [place] [address] PCP - General Family Medicine 01/27/21 Suleman Gustafson [address] [place] [address] Grain Merchandising Manager 04/27/21 Alex Brown APRN.SENIOR INFORMATICA DEVELOPER [address] [facility] [place] [address] Outpatient Case Manager Family Medicine 08/08/24 Shanita Green PA-C [address] [place] [address] [facility] 08/08/24 Pretzel Twisting Machine Operator Relationship Specialty Start Date End Date Rito Camp MD [address] [place] [address] PCP - General Family Medicine 01/27/21 Suleman Gustafson [address] [place] [address] Grain Merchandising Manager 04/27/21 Alex Brown APRN.SENIOR INFORMATICA DEVELOPER [address] [place] [address] Outpatient Case Manager Family [facility] 08/08/24 Shanita Green PA-C [address] [place] [address] [facility] 08/08/24 Pretzel Twisting Machine Operator Relationship Specialty Start Date End Date Rito Camp MD [address] [place] [address] PCP - General Family Medicine 01/27/21 Suleman Gustafson [address] [place] [address] Grain Merchandising Manager 04/27/21 Alex Brown APRN.SENIOR INFORMATICA DEVELOPER [address] [place] [address] [facility] 08/08/24 Shanita Green PA-C [address] [place] [address] [facility] 08/08/24 Pretzel Twisting Machine Operator Relationship Specialty Start Date End Date Rito Camp MD [address] [place] [address] PCP - General Family Medicine 01/27/21 Suleman Gustafson [address] [facility] [place] [address] Grain Merchandising Manager 04/27/21 Alex Brown, PRODUCTION SAMPLER.SENIOR INFORMATICA DEVELOPER [address] [place], [place] [address] [facility] 08/08/24 Shanita Green PA-C [address] [place], [place] [address]078[address] [facility] 08/08/24 Pretzel Twisting Machine Operator Relationship Specialty Start Date End Date Rito Camp MD [address] [place], [place] 212801 PCP - General Family Medicine 01/27/21 Suleman Gustafson [address] [place] [address] Grain Merchandising Manager 04/27/21 Alex Brown, ALAN.SENIOR INFORMATICA DEVELOPER [address] [place], [place] [address]391 [facility] 08/08/24 Shanita Green PA-C [address] [place], [place] [phone] [facility] 08/08/24 Team Status: Active Member Role Status Dates Dr. Rito Camp MD Primary Care Provider Active Team Status: Inactive Member Role Status Dates Dr. Rito Camp MD Primary Care Provider Active Start: September 15, 2024 End: September 15, 2024 Dr. Rito Camp MD Referring Provider Active Start: September 15, 2024 End: September 15, 2024 Letha Emery NP-C Attending Provider Active Start: September 15, 2024 End: September 15, 2024 Team Status: Inactive Member Role Status Dates Dr. Rito Camp MD Primary Care Provider Active Start: November 24, 2024 End: November 24, 2024 Dr. Rito Camp MD Attending Provider Active Start: November 24, 2024 End: November 24, 2024 Dr. Rito Camp MD Referring Provider Active Start: November 24, 2024 End: November 24, 2024 Team Status: Active Member Role Status Dates Dr. Rito Camp MD Primary Care Provider Active Start: November 25, 2024 Dr. Rito Camp MD Attending Provider Active Start: November 25, 2024 Dr. Rito Camp MD Referring Provider Active Start: November 25, 2024 Pretzel Twisting Machine Operator Relationship Specialty Start Date End Date Rito Camp MD [address] [place], [place] [address] PCP - General Family Medicine 01/27/21 12/06/24 Rito Camp MD [address] [place], [place] [id number] PCP - General Family Medicine 12/07/24 Suleman Gustafson [address] [place] [address] Grain Merchandising Manager 04/27/21 Alex Brown APRN.CNP [address] [place], [place] [address]3341 Outpatient Case Manager Family Medicine 08/08/24 Shanita Green PA-C [address] [place], [place] [address] Outpatient Case Manager Family Medicine 08/08/24 Pretzel Twisting Machine Operator Relationship Specialty Start Date End Date Rito Camp MD [address] [place], [place] [address]89[address] PCP - General Family Medicine 12/07/24 Suleman Gustafson [address] [place] [address] Grain Merchandising Manager 04/27/21 Alex Brown APRN.SENIOR INFORMATICA DEVELOPER [address] [place] [address] Outpatient Case Manager Family [facility] 08/08/24 Shanita Green PA-C [address] [place] [address] [facility] 08/08/24 Pretzel Twisting Machine Operator Relationship Specialty Start Date End Date iRto Camp MD [address] [place] [address] PCP - General Family Medicine 12/07/24 Suleman Gustafson [address] [facility] [place] [address] Grain Merchandising Manager 04/27/21 Alex Brown APRN.SENIOR INFORMATICA DEVELOPER [address] [place] [address] [facility] 08/08/24 Shanita Green PA-C [address] [place] [address] [facility] 08/08/24 Pretzel Twisting Machine Operator Relationship Specialty Start Date End Date Rito Camp MD [address] [place] [address] PCP - General Family Medicine 12/07/24 Suleman Gustafson [address] [place] [address] Grain Merchandising Manager 04/27/21 Alex Brown, ALAN.SENIOR INFORMATICA DEVELOPER [address] [place], [place] [address] [facility] 08/08/24 Shanita Green PA-C [address] [place], [place] [address]60[address] [facility] 08/08/24 Pretzel Twisting Machine Operator Relationship Specialty Start Date End Date Rito Camp MD [address] [place] [id number] PCP - General Family Medicine 12/07/24 Suleman Gustafson [address] [facility] [facility] [place] [address] Grain Merchandising Manager 04/27/21 Alex Brown, ALAN.SENIOR INFORMATICA DEVELOPER [address] [place] [address] 867071 [facility] 08/08/24 Shanita Green PA-C [address] [place] [id number] [facility] 08/08/24 Team Status: Inactive Member Role Status Dates Dr. Rito Camp MD Primary Care Provider Active Start: December 17, 2024 End: December 17, 2024 Dr. Rito Camp MD Referring Provider Active Start: December 17, 2024 End: December 17, 2024 TRACI Ornelas Attending Provider Active Start: December 17, 2024 End: December 17, 2024 Team Status: Inactive Member Role Status Dates Dr. Rito Camp MD Primary Care Provider Active Start: January 01, 2025 End: January 01, 2025 Sierra Dee NP, NP-C Attending Provider Active Start: January 01, 2025 End: January 01, 2025 Sierra Dee NP, VOLTAGE TESTER-C Referring Provider Active Start: January 01, 2025 End: January 01, 2025 Team Status: Inactive Member Role Status Dates Dr. Rito Camp MD Primary Care Provider Active Start: November 25, 2024 End: November 25, 2024 Dr. Rito Camp MD Attending Provider Active Start: November 25, 2024 End: November 25, 2024 Dr. Rito Camp MD Referring Provider Active Start: November 25, 2024 End: November 25, 2024 Team Status: Inactive Member Role Status Dates Dr. Rito Camp MD Primary Care Provider Active Start: February 09, 2025 End: February 09, 2025 Dr. Rito Camp MD Referring Provider Active Start: February 09, 2025 End: February 09, 2025 Letha Emery NP-C Attending Provider Active Start: February 09, 2025 End: February 09, 2025 Pretzel Twisting Machine Operator Relationship Specialty Start Date End Date Rito Camp MD [address] [place] [place], [place] [id number] PCP - General Family Medicine 12/07/24 Suleman Gustafson [address] [place] [address] [place] [address] Grain Merchandising Manager 04/27/21 Alex Brown APRN.CNP [address] [place], [place] [phone] [facility] Family Medicine 02/01/25 Shanita Green PA-C [address] [place], [place] [id number] [facility] Family Medicine 02/01/25 Pretzel Twisting Machine Operator Relationship Specialty Start Date End Date Rito Camp MD [address] [place] [place], [place] [id number] PCP - General Family Medicine 12/07/24 Suleman Gustafson [address] [place] [address] Grain Merchandising Manager 04/27/21 Alex Brown APRN.SENIOR INFORMATICA DEVELOPER [address] [place] [address] Outpatient Case Manager Family Medicine 02/01/25 Shanita Green PA-C [address] [place] [address] Outpatient Case Manager Family Medicine 02/01/25 Pretzel Twisting Machine Operator Relationship Specialty Start Date End Date Rito Camp MD [address] [place], [place] 12[address] PCP - General Family Medicine 12/07/24 Suleman Gustafson [address] [place] [address] Grain Merchandising Manager 04/27/21 Alex Brown, ALAN.SENIOR INFORMATICA DEVELOPER [address] [place] [address] Outpatient Case Manager Family Medicine 02/01/25 Shanita Green PA-C [address] [place] [address] Outpatient Case Manager Family Medicine 02/01/25 Pretzel Twisting Machine Operator Relationship Specialty Start Date End Date Rito Camp MD [address] [place] [address] PCP - General Family Medicine 12/07/24 Suleman Gustafson [address] [place] [address] Grain Merchandising Manager 04/27/21 Alex Brown APRN.SENIOR INFORMATICA DEVELOPER [address] [place], [place] [phone] [facility] 02/[facility]/25 Shanita Green PA-C [address] [place] [address] [facility] 02/01/25 Goals (unrecognized section and content) Goals may be documented in a n alternate sectionGoals may be documented in an alternate sectionGoals may be documented in an alternate sectionGoals may be documented in an alternate sectionGoals may be documented in an alternate sectionGoals may be documented in an alternate sectionGoals may be documented in an alternate sectionGoals may be documented in an alternate section Administered Medications Administered Medications (un recognized section and content) Medication Order MAR Action Action Date Dose Rate Site tuberculin skin test, unspecified formulation Given 07/27/2013 tuberculin skin test, unspecified formulation Given 08/04/2013 0.1 ml INFORMATION SOURCE (unrecogn ized section and content) DATE CREATED AUTHOR 03/22/2025 [facility] DATE CREATED AUTHOR AUTHOR'S SOFÍA KOVACS 03/29/2025 [facility] FOR RECORDS PERTAINING TO PATIENTS WHO ARE OR HAVE BEEN ENROLLED IN A CHEMICAL DEPENDENCY/SUBSTANCEABUSE PROGRAM, SOME INFORMATION MAY BE OMITTED. This clinical summary was aggregated from multiple sources. Caution should be exercised in using it in the provision of clinical care. This summary normalizes information from multiple sources, and as a consequence, information in this document may materially change the coding, format and clinical context of patient data. In addition, data may be omitted in some cases. CLINICAL DECISIONS SHOULD BE BASED ON THE PRIMARY CLINICAL RECORDS. [employer] provides no warranty or guarantee of the accuracy or completeness of information in this document.
--- NOTE | 2025-03-31 07:18 | PCM.HP.STD ---
HPI - General General Date of Admission: 03/31/25 Date of Service: 03/31/25 Chief Complaint: Dysphagia need for screening colonoscopy HPI Narrative JEYSON MARTINEZ, is a 70 F who presents with the Chief Complaint: dysphagia choke very easily - does not have to be eating - reports she can choke on salivia - couple episodes of dysphagia, FBO, vomiting, seen ED 2-3x for FB removal - she does not remember when these episodes of FBO were - lower esophageal dysphagia, jumps up and down and beats on her chest to release food - upper denture - not chewing food well - cough up small food particlies at times - denies any N/V - denies any HB - denies any change in bowel habits - PMH of COPD and Asthma MBS 11/24/2024 Mild pharyngeal deficits, including... -Delayed swallow onset. -Consistent, trace laryngeal penetration of liquids w/ complete ejection. No aspiration observed. Esophageal deficits... -Retention of pudding in middle and lower esophagus, which fully cleared w/ thin liquid wash. -Small CP bar at the level of C5-C6, which did not impact bolus clearance through the UES. EGD 06/30/2018 ([facility]) - negative for Mcpherson's and H. pylori The examined jejunum was normal. The examined duodenum was normal. Scattered moderate inflammation characterized by erosions, erythema, friability, granularity and shallow ulcerations was found in the gastric antrum. A small hiatal hernia was present. Non-severe esophagitis with no bleeding was found. Biopsies were taken with a cold forceps for histology. The middle third of the esophagus was normal. Biopsies were taken with a cold forceps for histology. EGD 03/17/2017 ([facility]) 2 large food boluses were located in the distal esophagus. I inserted a tri-tip grasper to grasp the food bolus but while I was grasping the food bolus the insufflation from the EGD pushed the food boluses into the stomach. I advanced the scope into the stomach and duodenum and there were no other obstructions noted. - 5 beers a day - former smoker - 1.5c of coffee daily - denies any NSAIDS - she has been on Omeprazole for along time - Father with colon CA - she reports a personal h/o bowel obstruction - uncertain when these 2 epsiodes were - reports it has been 10 years since her last colonoscopy ON LICENSE OF [facility] Medical History Alcohol use Easy bruising Gastric reflux History of stress test History of echocardiogram History of abdominal aortic aneurysm Vitamin D toxicity Uterine fibroid Former smoker Asthma COPD (chronic obstructive pulmonary disease) Hypertension Partial small bowel obstruction COVID-19 HSV (herpes simplex virus) anogenital infection Overactive bladder Emphysema of lung Benign essential HTN Postmenopausal atrophic vaginitis Lung mass Climacteric Lumbar spinal stenosis Peripheral neuropathy Recurrent manic disorder Cervicalgia Generalized hyperhidrosis Chronic interstitial cystitis RODRIGUEZ (dyspnea on exertion) Anxiety associated with depression Chronic pain disorder Sleep-related breathing disorder Stage 2 moderate COPD by GOLD classification Esophageal obstruction due to food impaction Arnold-Chiari deformity COPD, moderate Alcohol abuse Osteoporosis Home Medications ?Medication ?Instructions ?Recorded ?Last Taken ?Type melatonin 10 mg sublingual tablet 10 mg PO QHS sleeping pill 05/20/18 03/16/22 21:00 History ascorbic acid (vitamin C) 500 mg 1,000 mg PO DAILY supplement 06/26/18 03/16/22 09:00 History tablet,extended release biotin 5,000 mcg sublingual tablet 5,000 mcg sublingual DAILY 02/23/21 03/16/22 09:00 History supplement cyanocobalamin (vitamin B-12) 2,500 mcg PO DAILY supplement 04/27/21 03/16/22 09:00 History 2,500 mcg tablet acyclovir 400 mg tablet 400 mg PO BID female issue 04/16/22 Unknown History calcium carbonate (Calcium 600) 600 mg PO DAILY bones 06/01/23 Unknown History amlodipine 2.5 mg tablet (Norvasc) 2.5 mg PO DAILY Blood pressure 01/01/24 03/31/25 History trazodone 150 mg tablet 150 mg PO QHS 07/21/24 Unknown History montelukast 10 mg tablet 10 mg PO QPM breathing #90 tabs 10/19/24 Unknown Rx omeprazole 40 mg capsule,delayed 40 mg PO DAILY acid reflux #90 caps 12/17/24 03/31/25 Rx release ondansetron HCl 4 mg tablet 4 mg PO .COMPLEX #5 tabs 12/17/24 Unknown Rx peg 3350-electrolytes 236 240 ml PO Q10M #4,000 mL 12/21/24 Unknown Rx gram-22.74 gram-6.74 gram-5.86 gram solution (Golytely) albuterol sulfate 90 mcg/actuation 2 puff inhalation Q6H PRN 02/09/25 Unknown Rx aerosol inhaler (ProAir HFA) shortness of breath or wheezing #3 ea alendronate 70 mg tablet 70 mg PO QWEEK 02/09/25 Unknown History quetiapine 50 mg tablet 50 mg PO QHS 02/09/25 Unknown History budesonide-formoterol HFA 160 2 inh inhalation BID 03/25/25 Unknown History mcg-4.5 mcg/actuation aerosol inhaler (Breyna) Allergy/AdvReac Type Severity Reaction Status Date / Time Fish Containing Products Allergy Severe Angioedema Verified 03/31/25 07:09 shellfish derived Allergy Severe Angioedema Verified 03/31/25 07:09 Horse/Equine Containing Allergy Unknown NEEDS Verified 03/31/25 07:09 Products FOLLOW-UP lisinopril Allergy Unknown Unknown Verified 03/31/25 07:09 Family History Father Hypertension Aortic aneurysm Cancer skin and bladder Colon cancer Mother Brain aneurysm Depression Surgical History H/O Spinal surgery H/O eye surgery History of bilateral tubal ligation S/P craniotomy Social History household members: none Smoking Status: Former smoker quit date: 09/02/10 pack-years: 57 second hand exposure: No alcohol intake: current alcohol intake frequency: 3 or more drinks per day Alcohol type: beer details: Drinks 5-6 beers daily, nearly no breaks in her days of intake. substance use type: does not use caffeine: Yes what type of physical activity do you participate in: walking and other details: rosario LIAO Constitutional Constitutional: Denies fatigue, fever(s), poor appetite, weight gain or weight loss Gastrointestinal Gastrointestinal: Denies belching, bloating, change in bowel habits, change in stool character, chewing difficulty, coffee ground emesis, constipation, cramping, diarrhea, dyspepsia, dysphagia, early satiety, excessive flatus, fecal incontinence, heartburn, hematemesis, hematochezia, hemorrhoids, loose stools, melena, nausea, odynophagia, rectal bleeding, tenesmus, vomiting or weight changes Vital Signs Vital Signs Vital Signs: 03/31/25 07:10 03/31/25 07:10 Temperature 97.3 F L Temperature Source Temporal Pulse Rate 84 Respiratory Rate 16 Respiratory Pattern Normal Blood Pressure 133/84 H Blood Pressure Mean 100 Blood Pressure Source Monitor Blood Pressure Position Semi-Fowlers Blood Pressure Location Left Arm Pulse Ox 84 Oxygen Delivery Method Room Air Weight Weight: 90 lb Body Mass Index (BMI) 19.5 Physical Exam Const alert, oriented x3, no apparent distress and healthy appearing General Appearance: cooperative GI normal to inspection, nondistended, normoactive bowel sounds, soft to palpation, non-tender and non-distended Percussion: normal to percussion Rectal Exam: deferred Assessment & Plan Assessment/Plan (1) Encounter for screening colonoscopy: (2) Dysphagia: (3) Family history of colon cancer in father: PLAN: Thought Process: normal Assessment and Plan Assessment and Plan (1) Dysphagia: Status: Acute (2) Encounter for screening colonoscopy: Status: Acute (3) Family history of colon cancer in father: Status: Acute Medications: New peg 3350-sod sulf,ysvx-epa-cst 178.7-7.3-0.5 gram (Suflave) take as directed for split dose bowel prep 2 mL 0RF ondansetron HCl 4 mg orally; take two tablets PO two hours prior to start of bowel prep and one every 4 hours as needed for N/V 5 tabs 0RF omeprazole 40 mg PO DAILY 90 caps 1RF acid reflux Plan 69y/o female presents for initial consultation with complaints of lower esophageal dysphagia without reflux and history of FBO x2. Biopsies were negative for Mcpherson's and H. pylori in 2018. MBS completed 11/24/2024 revealed retention of pudding in middle and lower esophagus, which fully cleared w/ thin liquid wash. She complains of frequent choking on saliva, liquids and solids as well. She denies any HB, N/V, or weight loss. Family history is significant for father with colon cancer. I have scheduled her for an EGD and screening colonoscopy. She will continue Omeprazole 40mg daily and follow-up in the office post procedure. Patient Instructions: EGD & Colon - SuFlave Continue Omeprazole 40mg daily Follow-up post procedure
[2025-03-31] MEDS: Lactated Ringers 1,000 ML 15 ML IV (07:19)
--- NOTE | 2025-03-31 07:31 | PRE.ANES_ITS ---
ASA Classification* ASA Classification ASA Classification: 3 Assessment & Plan Anesthesia* Anesthesia Assessment Anesthesia Assessment: Discussed sedation and/or anesthesia options, risks, benefits, and alternatives with patient/parents/legal guardian/POA. Questions invited. The patient/parents/legal guardian/POA seems to understand and agrees to proceed with anesthesia plan. Reviewed the physical assessment, medical history, allergy history and patient home medications list prior to surgery/procedure/anesthetic and documented any changes. Performed airway and anesthesia risk assessments. Anesthesia Type Anesthesia Type: MAC History Source History Obtained from:: Patient and Chart Anesthesia Focused Assessment* Temperature: 97.3 F Pulse Rate: 84 Blood Pressure: 133/84 Respiratory Rate: 16 Pulse Ox: 84 Oxygen Delivery Method: Room Air Airway Assessment Mouth opens: >3 cm Mallampati Score: III Teeth Condition: Lower (permanent partial in place) and Upper Neck Range of motion (ROM): Limited ROM (due to spinal surgery, unable to bend head back and look up well. ) Labs Anesthesia Preop lab: CBC WBC 10.6 K/mm3 (4.4-11.0) 06/02/23 06:25 06/02/23 RBC 4.22 M/mm3 (4.2-5.4) 06/02/23 06:25 06/02/23 Hgb 14.1 g/dL (12.0-15.0) 06/02/23 06:25 06/02/23 Hct 43.4 % (37-47) 06/02/23 06:25 06/02/23 Plt Count 266 K/mm3 (150-450) 06/02/23 06:25 06/02/23 CHEMISTRY Potassium 3.6 mmol/L (3.5-5.1) 06/02/23 06:25 06/02/23 Sodium 142 mmol/L (136-145) 06/02/23 06:25 06/02/23 Magnesium 2.2 mg/dL (1.6-2.6) 03/17/22 18:03 03/17/22 Phosphorus 2.9 mg/dL (2.5-4.9) 03/17/22 18:03 03/17/22 BUN 16 mg/dL (7-18) 06/02/23 06:25 06/02/23 Creatinine 0.58 mg/dL (0.55-1.02) 06/02/23 06:25 06/02/23 Glucose 74 mg/dL (74-106) 06/02/23 06:25 06/02/23 TSH 1.19 uIU/mL (0.358-3.74) 02/28/21 18:20 COAG Pre-Assessment Diagnosis/Proposed Procedure Planned Operative Procedure(s): EGD, COLONOSCOPY Anesthesia History Anesthesia History - medical billing representative: Anesthesia History - medical billing representative Hx Hospitalization No 03/25/25 16:02 Any Problems With Anesthesia No 03/25/25 16:02 Cholinesterase deficiency No 03/25/25 16:02 You/Your Family Experience No 03/25/25 16:02 fever (hyperthermia) with Relationship Recent Exposure to Contagious No 03/31/25 07:10 Disease Does patient have nerve No 03/25/25 16:02 stimulator Patient instructed to have device shut off --Does patient have Pacemaker No 03/31/25 07:10 or ICD? When Was Last Pacemaker Check QUESTION #4 FULL TEXT: You/Your Family Experience fever (hyperthermia) with Anesthesia Any additional information?: No Last Oral Intake Last Oral intake: Last Oral Intake NPO since 17:00 03/31/25 07:10 Meds taken in AM with sips of water? Meds patient instructed to take am of surgery Any additional information?: No PONV PONV - medical billing representative: PONV - medical billing representative Female Yes 03/25/25 16:02 HX of Motion Sickness No 03/25/25 16:02 HX of N/V After Surgery No 03/25/25 16:02 Non-Smoker Yes 03/25/25 16:02 Duration of Surgery greater No 03/25/25 16:02 than 60 minutes Number of Risk Factors 2 03/25/25 16:02 PONV Score Moderate Risk 03/25/25 16:02 Any additional information?: No Height & Weight Height & Weight: Anesthesia: Height & Weight Height 4 ft 9 in 03/31/25 07:10 Weight: 40.823 kg 03/31/25 07:10 Body Mass Index (BMI) 19.5 03/31/25 07:10 Respiratory Assessment Respiratory Assessment - medical billing representative: Respiratory Tract Infection Hx - medical billing representative Hx Respiratory Tract Infection No 03/25/25 16:02 Any additional information?: No STOP Sleep Apnea STOP Sleep Apnea - medical billing representative: STOP Sleep Apnea - medical billing representative Hx Hypertension Yes: PER PT, CONTROLLED ON 03/25/25 16:02 MEDS Hx Sleep Apnea No 03/25/25 16:02 CPAP Yes 06/30/18 07:52 BIPAP Yes 06/26/18 15:33 Do you snore loudly (louder No 03/25/25 16:02 than talking or can be heard Do you often feel tired/ No 03/25/25 16:02 fatigued/ sleepy during daytime? Has anyone observed you stop No 03/25/25 16:02 breathing during sleep? STOP Results Negative 03/25/25 16:02 QUESTION #5 FULL TEXT : Do you snore loudly (louder than talking or can be heard through closed doors)? Tobacco Use History Tobacco Use History - medical billing representative: Tobacco Use History - medical billing representative Tobacco Use Smoking Status Former smoker 03/25/25 16:02 Hx Tobacco Use No 03/25/25 16:02 Years Smoking Packs Smoked per Day Smoking Cessation Date was Yes - quit smoking within 15 03/25/25 16:02 within the last 15 years years Hx Smoking Cessation Date 02/24/16 03/25/25 16:02 Hx Smoking Cessation No 03/25/25 16:02 Counseling Any additional information?: No Hematologic Medial History Hematologic Hx - medical billing representative: Hematologic Medical Hx - engineering technician Hx of Blood Transfusion No 03/25/25 16:02 Hx of Transfusion in last 3 No 03/25/25 16:02 Months Date of Last Transfusion (if within last 3 months) Ever experience any problems No 03/25/25 16:02 with transfusion(s)? Specify any problems Hx of Preganancy in last 3 No 03/25/25 16:02 Months Nurse Filling Out Transfusion MGRIFFITH 03/25/25 16:02 & Questions: Date: 03/25/25 03/25/25 16:02 Time: 16:04 03/25/25 16:02 Patient unable to answer at this time (ie. confused, unrespo Any additional information?: No /Reproduction History /Reproductive History - medical billing representative: /Reproductive Hx- medical billing representative Hx Now No 03/25/25 16:02 Gestational Age (in weeks): EDC: Hx Hx Para Hx Section SAB No 03/25/25 16:02 Any additional information?: No Active Medications Active Medications: Current Medications Generic Name Dose Route Start Last Admin Trade Name Jessee PRN Reason Stop Dose Admin Lactated Ringer's 1,000 mls @ 15 mls/hr 03/31/25 07:00 03/31/25 07:19 IV 15 mls/hr .Q48H JUAN Administration PFSH Medical History Alcohol use Easy bruising Gastric reflux History of stress test History of echocardiogram History of abdominal aortic aneurysm Vitamin D toxicity Uterine fibroid Former smoker Asthma COPD (chronic obstructive pulmonary disease) Hypertension Partial small bowel obstruction COVID-19 HSV (herpes simplex virus) anogenital infection Overactive bladder Emphysema of lung Benign essential HTN Postmenopausal atrophic vaginitis Lung mass Climacteric Lumbar spinal stenosis Peripheral neuropathy Recurrent manic disorder Cervicalgia Generalized hyperhidrosis Chronic interstitial cystitis RODRIGUEZ (dyspnea on exertion) Anxiety associated with depression Chronic pain disorder Sleep-related breathing disorder Stage 2 moderate COPD by GOLD classification Esophageal obstruction due to food impaction Arnold-Chiari deformity COPD, moderate Alcohol abuse Osteoporosis Home Medications ?Medication ?Instructions ?Recorded ?Last Taken ?Type melatonin 10 mg sublingual tablet 10 mg PO QHS sleepin g pill 05/20/18 03/16/22 21:00 History ascorbic acid (vitamin C) 500 mg 1,000 mg PO DAILY sup plement 06/26/18 03/16/22 09:00 History tablet,extended release biotin 5,000 mcg sublingual tablet 5,000 mcg sublingua l DAILY 02/23/21 03/16/22 09:00 History supplement cyanocobalamin (vitamin B-12) 2,500 mcg PO DAILY suppl ement 04/27/21 03/16/22 09:00 History 2,500 mcg tablet acyclovir 400 mg tablet 400 mg PO BID female issue 0 04/16/22 Unknown History calcium carbonate (Calcium 600) 600 mg PO DAILY bones 06/01/23 Unknown History amlodipine 2.5 mg tablet (Norvasc) 2.5 mg PO DAILY Blo od pressure 01/01/24 03/31/25 History trazodone 150 mg tablet 150 mg PO QHS 07/21/24 Unkno wn History montelukast 10 mg tablet 10 mg PO QPM breathing #90 t abs 10/19/24 Unknown Rx omeprazole 40 mg capsule,delayed 40 mg PO DAILY acid r eflux #90 caps 12/17/24 03/31/25 Rx release ondansetron HCl 4 mg tablet 4 mg PO .COMPLEX #5 tabs 0 12/17/24 Unknown Rx peg 3350-electrolytes 236 240 ml PO Q10M #4,000 mL Unknown Rx gram-22.74 gram-6.74 gram-5.86 gram solution (Golytely) albuterol sulfate 90 mcg/actuation 2 puff inhalation Q 6H PRN 02/09/25 Unknown Rx aerosol inhaler (ProAir HFA) shortness of breath or wh eezing #3 ea alendronate 70 mg tablet 70 mg PO QWEEK 02/09/25 Unkn own History quetiapine 50 mg tablet 50 mg PO QHS 02/09/25 Unknow n History budesonide-formoterol HFA 160 2 inh inhalation BID Unknown History mcg-4.5 mcg/actuation aerosol inhaler (Breyna) Allergy/AdvReac Type Severity Reaction Status Date / Time Fish Containing Products Allergy Severe Angioedema Verified 03/31/25 07:09 shellfish derived Allergy Severe Angioedema Verified 03/31/25 07:09 Horse/Equine Containing Allergy Unknown NEEDS Verified 03/31/25 07:09 Products FOLLOW-UP lisinopril Allergy Unknown Unknown Verified 03/31/25 07:09 Family History Father Hypertension Aortic aneurysm Cancer skin and bladder Colon cancer Mother Brain aneurysm Depression Surgical History H/O Spinal surgery H/O eye surgery History of bilateral tubal ligation S/P craniotomy Social History household members: none Smoking Status: Former smoker quit date: 09/02/10 pack-years: 57 second hand exposure: No alcohol intake: current alcohol intake frequency: 3 or more drinks per day Al cohol type: beer details: Drinks 5-6 beers daily, nearly no breaks in her days of intake. substance use type: does not use caffeine: Yes what type of physical activity do you participate in: walking and other details: rosario [employer] Information Additional Findings: Recently had aortic aneurysm checked, per patient it is stable and 3.5cm. Drinks BEER daily 5-6 per day. Review of Systems (Anesthesia) ROS Narrative System reviewed and no additional complaints, except as documented.
--- NOTE | 2025-03-31 08:00 | EGD_PTH ---
PATIENT: JEYSON MARTINEZ LOC: EN U#:[id number] AGE/SX: 70/F ROOM: RE03/31/[address]: Dr. Robe Gill DO : 1955 BED: DIS: 03/31/2025 SPEC #: [id number] RECD: 03/31/25 09:29 STATUS: NICOLE REContreras #: [id number] MICH: 03/31/25 08:[address]: Robe Gill DEPT: SURGICAL PATHOLOGY RECD BY: Buck Ugalde ENTERED: 03/31/25 11:24 SP TYPE: EGD BIOPSY ROSEMARIE DR: Dr. Rito Chew MD Tissues: A - Esophagus, NOS B - Gastric mucous membrane C - COLON BIOPSY D - Transverse colon Procedures: Immunohistochemical Stains Surgery Specimen Level IV HEADER OPERATION: Colonoscopy with polypectomy, EGD, biopsy PRE-OP DIAGNOSIS: Screening, family history of colon cancer, dysphagia TISSUE SUBMITTED: A- Distal esophagus biopsy, B- Gastric body biopsy, C- Hepatic flexure polyp, D- Transverse colon polyp MICROSCOPIC DIAGNOSIS A. Distal esophagus, biopsy: - Squamocolumnar mucosa with reactive changes. - Negative for goblet cell metaplasia. B. Gastric body, biopsy: - Oxyntic mucosa with active chronic gastritis. - IHC negative for H.pylori organisms - see note. Note: The histology is suggestive of H pylori gastritis. If clinical suspicion remains, suggest obtaining alternative testing for Helicobacter organisms. C. Colon, hepatic flexure, polyp, biopsy: - Tubular adenoma. D. Transverse colon, polyp, biopsy: - Tubular adenoma. MICROSCOPIC DESCRIPTION Slides are reviewed. All matched controls reacted appropriately. These tests were developed and their performance characteristics determined by [facility]. They may not have been cleared or approved by the U.S. Food and Drug Administration. The FDA has determined that such clearance or approval is not necessary. The above immunohistochemical/dualISH markers are viewed by the Pathologist. GROSS DESCRIPTION A. Received in fixative is one container labeled with the patient's name and designated Distal esophagus biopsy. The specimen consists of two irregular fragments of light hurley soft tissue, each measuring 0.4 cm. The specimen is totally submitted in one cassette. B. Received in fixative is one container labeled with the patient's name and designated Gastric body biopsy. The specimen consists of three irregular fragments of light hurley soft tissue that in aggregate measure 0.2 to 0.4 cm. The specimen is totally submitted in one cassette. C. Received in fixative is one container labeled with the patient's name and designated Hepatic flexure polyp. The specimen consists of one irregular fragment of light hurley soft tissue that measures 0.9 cm. The specimen is totally submitted in one cassette. D. Received in fixative is one container labeled with the patient's name and designated Transverse colon polyp. The specimen consists of two irregular fragments of light hurley soft tissue that in aggregate measure 0.3 and 0.4 cm. The specimen is totally submitted in one cassette. MD 03/31/2025 CPT:[id number]
--- NOTE | 2025-03-31 09:00 | PCM.POST.ANE ---
Anesthesia: Postop Eval I Current Vital Signs Temperature: 98 F Pulse Rate: 86 Blood Pressure: 122/77 Respiratory Rate: 16 Pulse Ox: 98 Oxygen Delivery Method: Room Air Assessment Airway patent: Yes Spontaneous unlabored respirations: Yes Mental status: Awake and Calm nausea: No Vomiting: No Anesthesia Complication: No Fluid Hydration Crystalloid volume administer (ml): 700 Total IV fluid infused: 700 Progress Note Anesthesia document: Postop Eval 1 completed: Yes
--- NOTE | 2025-03-31 09:07 | OP.PROVAT_ITS ---
03/31/2025 Rito Chew MD Re : Upper GI endoscopy procedure for Jena Ramirez Dear Dr. Chew This procedure was performed on Monday, March 31, 2025. My impressions and recommendations are as follows: Impressions : - LA Grade A reflux esophagitis with no bleeding. Biopsied. - Moderate Schatzki ring. Dilated. - Small hiatal hernia. - No gross lesions in the entire stomach. - No gross lesions in the entire examined duodenum. Recommendations : - Discharge patient to home. - Resume previous diet. - Continue present medications. - Await pathology results. My findings are described in the full procedure note, which is enclosed. If I can be of further assistance, please feel free to contact me at . Sincerely, Robe Gill, 03/31/2025 9:07:01 AM This report has been signed electronically.
--- NOTE | 2025-03-31 09:07 | OP.EGD_ITS ---
Patient Name: Jena Ramirez Procedure Date: 03/31/2025 8:11 AM Date of : 1955 Age: 70 Procedure: Upper GI endoscopy Indications: Dysphagia Providers: Robe Gill DO Referring MD: Rito Chew MD Medicines: Monitored Anesthesia Care Patient Profile: This is a 70 year old female. Refer to note in patient chart for documentation of history and physical. Patient has symptoms of dysphagia with solids. Complications: No immediate complications. Procedure: Pre-Anesthesia Assessment: - Prior to the procedure, a History and Physical was performed, and patient medications and allergies were reviewed. The patient is competent. The risks and benefits of the procedure and the sedation options and risks were discussed with the patient. All questions were answered and informed consent was obtained. Patient identification and proposed procedure were verified by the physician in the pre-procedure area. Mental Status Examination: alert and oriented. Airway Examination: normal oropharyngeal airway and neck mobility. Respiratory Examination: clear to auscultation. CV Examination: normal. Prophylactic Antibiotics: The patient does not require prophylactic antibiotics. Prior Anticoagulants: The patient has taken no anticoagulant or antiplatelet agents except for NSAID medication. ASA Grade Assessment: II - A patient with mild systemic disease. After reviewing the risks and benefits, the patient was deemed in satisfactory condition to undergo the procedure. The anesthesia plan was to use monitored anesthesia care (MAC). Immediately prior to administration of medications, the patient was re-assessed for adequacy to receive sedatives. The heart rate, respiratory rate, oxygen saturations, blood pressure, adequacy of pulmonary ventilation, and response to care were monitored throughout the procedure. The physical status of the patient was re-assessed after the procedure. After obtaining informed consent, the endoscope was passed under direct vision. Throughout the procedure, the patient's blood pressure, pulse, and oxygen saturations were monitored continuously. The colonoscope was introduced through the mouth, and advanced to the second part of duodenum. The upper GI endoscopy was accomplished without difficulty. The patient tolerated the procedure well. Scope In: 8:21:44 AM Scope Out: 8:29:00 AM Total Procedure Duration Time 0 hours 7 minutes 16 seconds Findings: LA Grade A (one or more mucosal breaks less than 5 mm, not extending between tops of 2 mucosal folds) esophagitis with no bleeding was found 37 to 39 cm from the incisors. Biopsies were taken with a cold forceps for histology. Verification of patient identification for the specimen was done. Estimated blood loss was minimal. A moderate Schatzki ring was found at the gastroesophageal junction. A guidewire was placed and the scope was withdrawn. Dilation was performed with a Savary dilator with no resistance at 57 Fr. The dilation site was examined and showed moderate improvement in luminal narrowing. A small hiatal hernia was present. No gross lesions were noted in the entire examined stomach. No gross lesions were noted in the entire examined duodenum. Patchy mildly erythematous mucosa without bleeding was found in the gastric body. Biopsies were taken with a cold forceps for histology. Verification of patient identification for the specimen was done. Estimated blood loss was minimal. Biopsies were taken with a cold forceps for Helicobacter pylori testing. Verification of patient identification for the specimen was done. Estimated blood loss was minimal. Impression: - LA Grade A reflux esophagitis with no bleeding. Biopsied. - Moderate Schatzki ring. Dilated. - Small hiatal hernia. - No gross lesions in the entire stomach. - No gross lesions in the entire examined duodenum. Recommendation: - Discharge patient to home. - Resume previous diet. - Continue present medications. - Await pathology results. Procedure Code(s): --- Professional --- 40530, Esophagogastroduodenoscopy, flexible, transoral; with insertion of guide wire followed by passage of dilator(s) through esophagus over guide wire 54186, 59,51, Esophagogastroduodenoscopy, flexible, transoral; with biopsy, single or multiple CPT copyright 2021 [employer]. All rights reserved. The codes documented in this report are preliminary and upon transit mixer operator review may be revised to meet current compliance requirements. Robe Gill DO 03/31/2025 9:07:01 AM This report has been signed electronically. Number of Addenda: 0 Note Initiated On: 03/31/2025 8:11 AM
--- NOTE | 2025-03-31 09:09 | OP.PROVAT_ITS ---
03/31/2025 Rito Chew MD Re : Colonoscopy procedure for Jena Ramirez Dear Dr. Chew This procedure was performed on Monday, March 31, 2025. My impressions and recommendations are as follows: Impressions : - Diverticulosis in the recto-sigmoid colon and in the sigmoid colon. - Two 7 mm polyps in the transverse colon and at the hepatic flexure, removed with a cold biopsy forceps. Resected and retrieved. - The examination was otherwise normal on direct and retroflexion views. - Rectal prolapse. Recommendations : - Discharge patient to home. - Resume previous diet. - Continue present medications. - Await pathology results. - Repeat colonoscopy in 5 years for surveillance. My findings are described in the full procedure note, which is enclosed. If I can be of further assistance, please feel free to contact me at . Sincerely, Robe Gill, 03/31/2025 9:09:10 AM This report has been signed electronically.
--- NOTE | 2025-03-31 09:09 | OP.COLON_ITS ---
Patient Name: Jena Ramirez Procedure Date: 03/31/2025 8:29 AM Date of : 1955 Age: 70 Procedure: Colonoscopy Indications: Screening for colorectal malignant neoplasm Providers: Robe Gill DO Referring MD: Rito Chew MD Medicines: Monitored Anesthesia Care Patient Profile: This is a 70 year old female. Refer to note in patient chart for documentation of history and physical. Patient has symptoms of dysphagia with solids. Last Colonoscopy: several years ago. Complications: No immediate complications. Procedure: Pre-Anesthesia Assessment: - Prior to the procedure, a History and Physical was performed, and patient medications and allergies were reviewed. The patient is competent. The risks and benefits of the procedure and the sedation options and risks were discussed with the patient. All questions were answered and informed consent was obtained. Patient identification and proposed procedure were verified by the physician in the pre-procedure area. Mental Status Examination: alert and oriented. Airway Examination: normal oropharyngeal airway and neck mobility. Respiratory Examination: clear to auscultation. CV Examination: normal. Prophylactic Antibiotics: The patient does not require prophylactic antibiotics. Prior Anticoagulants: The patient has taken no anticoagulant or antiplatelet agents except for NSAID medication. ASA Grade Assessment: II - A patient with mild systemic disease. After reviewing the risks and benefits, the patient was deemed in satisfactory condition to undergo the procedure. The anesthesia plan was to use monitored anesthesia care (MAC). Immediately prior to administration of medications, the patient was re-assessed for adequacy to receive sedatives. The heart rate, respiratory rate, oxygen saturations, blood pressure, adequacy of pulmonary ventilation, and response to care were monitored throughout the procedure. The physical status of the patient was re-assessed after the procedure. After I obtained informed consent, the scope was passed under direct vision. Throughout the procedure, the patient's blood pressure, pulse, and oxygen saturations were monitored continuously. The colonoscope was introduced through the anus and advanced to the cecum, identified by appendiceal orifice and ileocecal valve. The colonoscopy was performed without difficulty. The patient tolerated the procedure well. The quality of the bowel preparation was adequate. The ileocecal valve, appendiceal orifice, and rectum were photographed. Scope In: 8:32:43 AM Scope Withdrawal Time 0 hours 10 minutes 23 seconds Scope Out: 8:49:36 AM Total Procedure Duration Time 0 hours 16 minutes 53 seconds Findings: The perianal and digital rectal examinations were normal. Multiple small and large-mouthed diverticula were found in the recto-sigmoid colon and sigmoid colon. Two sessile polyps were found in the transverse colon and hepatic flexure. The polyps were 7 mm in size. These polyps were removed with a cold biopsy forceps. Resection and retrieval were complete. Verification of patient identification for the specimen was done. Estimated blood loss was minimal. The exam was otherwise without abnormality on direct and retroflexion views. Mild rectal prolapse was present. Impression: - Diverticulosis in the recto-sigmoid colon and in the sigmoid colon. - Two 7 mm polyps in the transverse colon and at the hepatic flexure, removed with a cold biopsy forceps. Resected and retrieved. - The examination was otherwise normal on direct and retroflexion views. - Rectal prolapse. Recommendation: - Discharge patient to home. - Resume previous diet. - Continue present medications. - Await pathology results. - Repeat colonoscopy in 5 years for surveillance. Procedure Code(s): --- Professional --- 40676, Colonoscopy, flexible; with biopsy, single or multiple CPT copyright 2021 [employer]. All rights reserved. The codes documented in this report are preliminary and upon cattle broker review may be revised to meet current compliance requirements. Robe Gill DO 03/31/2025 9:09:10 AM This report has been signed electronically. Number of Addenda: 0 Note Initiated On: 03/31/2025 8:29 AM
--- NOTE | 2025-03-31 09:22 | PCM.POSTANE2 ---
Anesthesia Postop Eval I Sum Postop Eval Completion status Anesthesia document: Postop Eval 1 completed: Yes Anesthesia Postop Eval I Summary Anesthesia Postop Eval I Summary: Anesthesia Postop Eval I: Assessment Summary Airway patent Yes 03/31/25 09:02 [email or web address] Spontaneous unlabored Yes 03/31/25 09:02 [email or web address] respirations Mental status Awake,Calm 03/31/25 09:02 [email or web address] nausea No 03/31/25 09:02 [email or web address] Vomiting No 03/31/25 09:02 [email or web address] Anesthesia Postop Eval I: Fluid Summary Crystalloid volume administer 700 03/31/25 09:02 [email or web address] (ml) Colloids volume administered ( ml) Blood Product volume administered (ml) Total IV fluid infused 700 03/31/25 09:02 [email or web address] Anesthesia Postop Eval I: Summary Notes Anesthesia Complication No 03/31/25 09:02 [email or web address] Anesthesia Complication Comment: Post-operative progress note Anesthesia: Postop Eval II Evaluation Mental status: Awake and Calm Pain Level: 0 nausea: No Vomiting: No Progress Note Post-operative progress note: meets discharge criteria Complications Anesthesia Complication: No
--- NOTE | 2025-03-31 09:23 | PCM.PRE.AN2 ---
ASA Classification* ASA Classification ASA Classification: 3 Assessment & Plan Anesthesia* Anesthesia Assessment Anesthesia Assessment: Discussed sedation and/or anesthesia options, risks, benefits, and alternatives with patient/parents/legal guardian/POA. Questions invited. The patient/parents/legal guardian/POA seems to understand and agrees to proceed with anesthesia plan. Reviewed the physical assessment, medical history, allergy history and patient home medications list prior to surgery/procedure/anesthetic and documented any changes. Performed airway and anesthesia risk assessments. Anesthesia Type Anesthesia Type: MAC History Source History Obtained from:: Patient and Chart Anesthesia Focused Assessment* Temperature: 98.4 F Pulse Rate: 75 Blood Pressure: 119/76 Respiratory Rate: 16 Pulse Ox: 94 Oxygen Delivery Method: Room Air Airway Assessment Mouth opens: >3 cm Mallampati Score: II Teeth Condition: Intact Neck Range of motion (ROM): Limited ROM Labs Anesthesia Preop lab: CBC WBC 10.6 K/mm3 (4.4-11.0) 06/02/23 06:25 06/02/23 RBC 4.22 M/mm3 (4.2-5.4) 06/02/23 06:25 06/02/23 Hgb 14.1 g/dL (12.0-15.0) 06/02/23 06:25 06/02/23 Hct 43.4 % (37-47) 06/02/23 06:25 06/02/23 Plt Count 266 K/mm3 (150-450) 06/02/23 06:25 06/02/23 CHEMISTRY Potassium 3.6 mmol/L (3.5-5.1) 06/02/23 06:25 06/02/23 Sodium 142 mmol/L (136-145) 06/02/23 06:25 06/02/23 Magnesium 2.2 mg/dL (1.6-2.6) 03/17/22 18:03 03/17/22 Phosphorus 2.9 mg/dL (2.5-4.9) 03/17/22 18:03 03/17/22 BUN 16 mg/dL (7-18) 06/02/23 06:25 06/02/23 Creatinine 0.58 mg/dL (0.55-1.02) 06/02/23 06:25 06/02/23 Glucose 74 mg/dL (74-106) 06/02/23 06:25 06/02/23 TSH 1.19 uIU/mL (0.358-3.74) 02/28/21 18:20 02/28/21 COAG Pre-Assessment Diagnosis/Proposed Procedure Planned Operative Procedure(s): EGD, COLONOSCOPY Anesthesia History Anesthesia History - geospatial imagery intelligence analyst: Anesthesia History - geospatial imagery intelligence analyst Hx Hospitalization No 03/25/25 16:02 Any Problems With Anesthesia No 03/25/25 16:02 Cholinesterase deficiency No 03/25/25 16:02 You/Your Family Experience No 03/25/25 16:02 fever (hyperthermia) with Relationship Recent Exposure to Contagious No 03/31/25 07:10 Disease Does patient have nerve No 03/25/25 16:02 stimulator Patient instructed to have device shut off --Does patient have Pacemaker No 03/31/25 07:10 or ICD? When Was Last Pacemaker Check QUESTION #4 FULL TEXT: You/Your Family Experience fever (hyperthermia) with Anesthesia Last Oral Intake Last Oral intake: Last Oral Intake NPO since 17:00 03/31/25 07:10 Meds taken in AM with sips of water? Meds patient instructed to take am of surgery PONV PONV - geospatial imagery intelligence analyst: PONV - geospatial imagery intelligence analyst Female Yes 03/25/25 16:02 HX of Motion Sickness No 03/25/25 16:02 HX of N/V After Surgery No 03/25/25 16:02 Non-Smoker Yes 03/25/25 16:02 Duration of Surgery greater No 03/25/25 16:02 than 60 minutes Number of Risk Factors 2 03/25/25 16:02 PONV Score Moderate Risk 03/25/25 16:02 Height & Weight Height & Weight: Anesthesia: Height & Weight Height 4 ft 9 in 03/31/25 07:10 Weight: 40.823 kg 03/31/25 07:10 Body Mass Index (BMI) 19.5 03/31/25 07:10 Respiratory Assessment Respiratory Assessment - geospatial imagery intelligence analyst: Respiratory Tract Infection Hx - geospatial imagery intelligence analyst Hx Respiratory Tract Infection No 03/25/25 16:02 STOP Sleep Apnea STOP Sleep Apnea - geospatial imagery intelligence analyst: STOP Sleep Apnea - geospatial imagery intelligence analyst Hx Hypertension Yes: PER PT, CONTROLLED ON 03/25/25 16:02 MEDS Hx Sleep Apnea No 03/31/25 09:05 CPAP Yes 03/31/25 08:55 BIPAP Yes 06/26/18 15:33 Do you snore loudly (louder No 03/25/25 16:02 than talking or can be heard Do you often feel tired/ No 03/25/25 16:02 fatigued/ sleepy during daytime? Has anyone observed you stop No 03/25/25 16:02 breathing during sleep? STOP Results Negative 03/31/25 08:55 QUESTION #5 FULL TEXT : Do you snore loudly (louder than talking or can be heard through closed doors)? Tobacco Use History Tobacco Use History - geospatial imagery intelligence analyst: Tobacco Use History - geospatial imagery intelligence analyst Tobacco Use Smoking Status Former smoker 03/25/25 16:02 Hx Tobacco Use No 03/25/25 16:02 Years Smoking Packs Smoked per Day Smoking Cessation Date was Yes - quit smoking within 15 03/25/25 16:02 within the last 15 years years Hx Smoking Cessation Date 02/24/16 03/25/25 16:02 Hx Smoking Cessation No 03/25/25 16:02 Counseling Hematologic Medial History Hematologic Hx - geospatial imagery intelligence analyst: Hematologic Medical Hx - grease monkey Hx of Blood Transfusion No 03/25/25 16:02 Hx of Transfusion in last 3 No 03/25/25 16:02 Months Date of Last Transfusion (if within last 3 months) Ever experience any problems No 03/25/25 16:02 with transfusion(s)? Specify any problems Hx of Preganancy in last 3 No 03/25/25 16:02 Months Nurse Filling Out Transfusion MGRIFFITH 03/25/25 16:02 & Questions: Date: 03/25/25 03/25/25 16:02 Time: 16:04 03/25/25 16:02 Patient unable to answer at this time (ie. confused, unrespo /Reproduction History /Reproductive History - geospatial imagery intelligence analyst: /Reproductive Hx- geospatial imagery intelligence analyst Hx Now No 03/25/25 16:02 Gestational Age (in weeks): EDC: Hx Hx Para Hx Section SAB No 03/25/25 16:02 Active Medications Active Medications: Current Medications Generic Name Dose Route Start Last Admin Trade Name Freq PRN Reason Stop Dose Admin Lactated Ringer's 1,000 mls @ 15 mls/hr 03/31/25 07:00 03/31/25 07:19 IV 15 mls/hr .Q48H JUAN Administration PFSH Medical History Alcohol use Easy bruising Gastric reflux History of stress test History of echocardiogram History of abdominal aortic aneurysm Vitamin D toxicity Uterine fibroid Former smoker Asthma COPD (chronic obstructive pulmonary disease) Hypertension Partial small bowel obstruction COVID-19 HSV (herpes simplex virus) anogenital infection Overactive bladder Emphysema of lung Benign essential HTN Postmenopausal atrophic vaginitis Lung mass Climacteric Lumbar spinal stenosis Peripheral neuropathy Recurrent manic disorder Cervicalgia Generalized hyperhidrosis Chronic interstitial cystitis RODRIGUEZ (dyspnea on exertion) Anxiety associated with depression Chronic pain disorder Sleep-related breathing disorder Stage 2 moderate COPD by GOLD classification Esophageal obstruction due to food impaction Arnold-Chiari deformity COPD, moderate Alcohol abuse Osteoporosis Home Medications ?Medication ?Instructions ?Recorded ?Last Taken ?Type melatonin 10 mg sublingual tablet 10 mg PO QHS sleeping pill 05/20/18 03/16/22 21:00 History ascorbic acid (vitamin C) 500 mg 1,000 mg PO DAILY supplement 06/26/18 03/16/22 09:00 History tablet,extended release biotin 5,000 mcg sublingual tablet 5,000 mcg sublingual DAILY 02/23/21 03/16/22 09:00 History supplement cyanocobalamin (vitamin B-12) 2,500 mcg PO DAILY supplement 04/27/21 03/16/22 09:00 History 2,500 mcg tablet acyclovir 400 mg tablet 400 mg PO BID female issue 04/16/22 Unknown History calcium carbonate (Calcium 600) 600 mg PO DAILY bones 06/01/23 Unknown History amlodipine 2.5 mg tablet (Norvasc) 2.5 mg PO DAILY Blood pressure 01/01/24 03/31/25 History trazodone 150 mg tablet 150 mg PO QHS 07/21/24 Unknown History montelukast 10 mg tablet 10 mg PO QPM breathing #90 tabs 10/19/24 Unknown Rx omeprazole 40 mg capsule,delayed 40 mg PO DAILY acid reflux #90 caps 12/17/24 03/31/25 Rx release ondansetron HCl 4 mg tablet 4 mg PO .COMPLEX #5 tabs 12/17/24 Unknown Rx peg 3350-electrolytes 236 240 ml PO Q10M #4,000 mL 12/21/24 Unknown Rx gram-22.74 gram-6.74 gram-5.86 gram solution (Golytely) albuterol sulfate 90 mcg/actuation 2 puff inhalation Q6H PRN 02/09/25 Unknown Rx aerosol inhaler (ProAir HFA) shortness of breath or wheezing #3 ea alendronate 70 mg tablet 70 mg PO QWEEK 02/09/25 Unknown History quetiapine 50 mg tablet 50 mg PO QHS 02/09/25 Unknown History budesonide-formoterol HFA 160 2 inh inhalation BID 03/25/25 Unknown History mcg-4.5 mcg/actuation aerosol inhaler (Breyna) Allergy/AdvReac Type Severity Reaction Status Date / Time Fish Containing Products Allergy Severe Angioedema Verified 03/31/25 07:09 shellfish derived Allergy Severe Angioedema Verified 03/31/25 07:09 Horse/Equine Containing Allergy Unknown NEEDS Verified 03/31/25 07:09 Products FOLLOW-UP lisinopril Allergy Unknown Unknown Verified 03/31/25 07:09 Family History Father Hypertension Aortic aneurysm Cancer skin and bladder Colon cancer Mother Brain aneurysm Depression Surgical History H/O Spinal surgery H/O eye surgery History of bilateral tubal ligation S/P craniotomy Social History household members: none Smoking Status: Former smoker quit date: 09/02/10 pack-years: 57 second hand exposure: No alcohol intake: current alcohol intake frequency: 3 or more drinks per day Alcohol type: beer details: Drinks 5-6 beers daily, nearly no breaks in her days of intake. substance use type: does not use caffeine: Yes what type of physical activity do you participate in: walking and other details: rosario Review of Systems (Anesthesia) ROS Narrative System reviewed and no additional complaints, except as documented.
== END 2025-03-31 09:38 | disposition home or self-care (01) ==
LOC: EN 06:53 → AC 06:55
PROVIDERS: PCP Family Medicine; Referring Provider Family Medicine; Visit Provider Internal Medicine Gastroenterology
PROC: 0DJD8ZZ Inspection of Lower Intestinal Tract, Via Natural or Artificial Opening Endoscopic (ICD-10-PCS; CPT 45378; principal; 2025-03-31 07:55)
DX: Z12.11 Encounter for screening for malignant neoplasm of colon (principal); J44.9 Chronic obstructive pulmonary disease, unspecified; D12.3 Benign neoplasm of transverse colon; K22.2 Esophageal obstruction; K44.9 Diaphragmatic hernia without obstruction or gangrene; K62.3 Rectal prolapse; K57.30 Diverticulosis of large intestine without perforation or abscess without bleeding; K29.50 Unspecified chronic gastritis without bleeding; K21.00 Gastro-esophageal reflux disease with esophagitis, without bleeding; Z80.0 Family history of malignant neoplasm of digestive organs; I10 Essential (primary) hypertension; F41.8 Other specified anxiety disorders; M81.0 Age-related osteoporosis without current pathological fracture; Z87.19 Personal history of other diseases of the digestive system; Z79.51 Long term (current) use of inhaled steroids; Z79.899 Other long term (current) drug therapy; Z87.891 Personal history of nicotine dependence
CPT/HCPCS: 45380; 43239; 43248; 88305; 88342; C1769; J2405

== ENCOUNTER 2025-05-06 10:48 | Outpatient (RCR) | payer MEDICARE, SELFPAY ==
--- NOTE | 2025-05-06 14:10 | ST ---
[facility] Speech Pathology [address] [place] [address] Modified Barium Swallow Study MR#: [id number] Acct: [id number] Name: JEYSON MARTINEZ Rep #: [id number] : [id number] Modified Barium Swallow Patient Information Study Date: 11/24/24 Study Time: 12:45 Direct Billable Minutes: 70 Total Minutes procedure & reportin Diagnosis: Dysphagia R13.10 Referring Physician: Rito Chew Reason for Referral: assess swallow function, assess risk for aspiration, and determine recommendations for least restrictive diet textures and compensatory strategies to facilitate safe po intake. Medical History: Patient recently seen at [facility] for outpatient swallowing evaluation 10/20/2024 to address dysphagia. Per bedside swallowing evaluation history, patient reported that she is coughing or choking 2-3 times per week with no pattern on foods, liquid or it can also be on just saliva. She reports about half of those episodes she is able to cough up bits of food. In 2017 and 2018 she had esophageal impactions and went to ER for removal. She has a history of COPD and Asthma also. Patient has not been evaluated by GI since being in ER per her report. The patient was recommended for regular textures / thin liquids w/ aspiration precautions (Reduce Distractions, Small Sips & Bites when Eating, Chew thoroughly). Patient was also recommended for MBSS to further assess swallow function and to determine appropriate dysphagia interventions. Of note, patient has an allergy to products containing fish and shellfish derived allergy. Other history: Vitamin D toxicity, Former smoker, Asthma, COPD , HTN, Partial small bowel obstruction, COVID-19, Emphysema of lung, Benign essential HTN, Lung mass, Climacteric Lumbar spinal stenosis, Peripheral neuropathy, Recurrent manic disorder, Generalized hyperhidrosis, RODRIGUEZ, Anxiety associated with depression, Chronic pain disorder, Sleep-related breathing disorder, Stage 2 moderate COPD by GOLD classification, Esophageal obstruction due to food impaction, Arnold-Chiari deformity, Alcohol abuse, Osteoporosis Current Diet Ordered: Regular / Thin Dentition: Natural Teeth and Missing Teeth (implants, still missing posterior dentition) Mental Status: WNL Respiratory Status: Oxygenating on Room Air Penetration-Aspiration Scale Penetration-Aspiration Scale: OBJECTIVE ASSESSMENT OF SWALLOW FUNCTION (QUANTITATIVE ? PER TRIAL): PENETRATION / ASPIRATION SCALE (PRINGLE): 1 = does not enter airway 2 = enters airway/above vocal folds/ejected 3 = enters airway/above vocal folds/not ejected 4 = enters airway/contacts vocal folds/ejected 5 = enters airway/contacts vocal folds/not ejected 6 = enters airway/below vocal folds/ejected 7 = enters airway/below vocal folds/not ejected despite effort 8 = enters airway/below vocal folds/no effort VIDEOFLOROSCOPIC SCALE SCORE (PRINGLE): Grade I = aspiration of material that has penetrated into the laryngeal vestibule, intact cough reflex Grade II = aspiration < 10 % of the bolus, intact cough reflex Grade III = aspiration of < 10 % of the bolus, reduced cough reflex or aspiration of > 10 % of the bolus, intact cough reflex Grade IV = aspiration of > 10 % of the bolus, reduced cough reflex Penetration-Aspiration Scale Score Thin Liquid via teaspoon: Result: 2= enter airway/above vocal folds/ejected Thin Liquid via teaspoon Trial 2: Result: 1= does not enter airway Thin Liquid via large single sip: cup: Result: 2= enter airway/above vocal folds/ejected Thin Liquid via sequential sips: cup: Result: 2= enter airway/above vocal folds/ejected Comment: Esophageal screen - Complete clearance. Pudding via teaspoon: Result: 1= does not enter airway Comment: Esophageal screen - Retention of portion of pudding bolus throughout middle and lower esophagus. Thin Liquid via single sip: straw: Result: 2= enter airway/above vocal folds/ejected Comment: Esophageal screen - Complete clearance. 1/2 Cookie coated in Barium Pudding: Result: 1= does not enter airway Comment: Esophageal screen - Minimal retention in middle esophagus. Thin Liquid via sequential sips:straw: Result: 2= enter airway/above vocal folds/ejected Comment: Esophageal screen - Complete clearance. Oral Phase Labial Seal: No Labial Escape Tongue Control During Bolus Hold: Posterior escape of greater than half of bolus Bolus Preparation/Mastication: Disorganized chewing/mashing with solid pieces of bolus unchewed (Timely mastication; however, small pieces of cookie appeared un-chewed.) Bolus Transport/Lingual Motion: Delayed initiation of tongue motion Oral Residue: Residue collection on oral structures Pharyngeal Phase Initiation of Pharyngeal Swallow: Bolus head in pyriforms Soft Palate Elevation: Trace column of contrast/air between soft palate and pharyngeal wall Laryngeal Elevation: Comp. Superior move thyroid cart w/comp. apprx arytenoid cart-epig pet Anterior Hyoid Excursion: Complete anterior movement Epiglottic Movement: Complete inversion Laryngeal Vestibule Closure at Height of Swallow: Incomplete; narrow column of air/contrast in laryngeal vestibule (trace laryngeal penetration of liquids w/ complete ejection after the swallow) Pharyngeal Stripping Wave: Present - complete Pharyngoesophageal Segment Opening: Complete distension and complete duration; no obstruction of flow Tongue Base Retraction: Trace column of contrast between tongue base & post. pharyngeal wall Pharyngeal Residue: Trace residue within or on pharyngeal structures Esophageal Phase Esophageal Clearance: Esophageal retention Diagnosis/Impression Diagnosis: Mild oropharyngeal dysphagia R13.12; Mild esophageal dysphagia R13.14 Impression: Mild oral deficits, including... -Loss of liquids to the pyriforms (>1/2 the bolus) prior to swallow onset. -Delayed tongue motion for A-P transport. -Timely mastication; however, small pieces of cookie appeared un-chewed. Mild pharyngeal deficits, including... -Delayed swallow onset. -Consistent, trace laryngeal penetration of liquids w/ complete ejection. No aspiration observed. Esophageal deficits... -Retention of pudding in middle and lower esophagus, which fully cleared w/ thin liquid wash. -Small CP bar at the level of C5-C6, which did not impact bolus clearance through the UES. Recommendations Diet: Regular Textures and Thin Liquids Compensatory Strategies: Small Bites (Chew thoroughly), Small Sips, Slow Rate, Alternate bites/solids and sips/liquids (Take a drink after every 1-2 bites), Sitting upright (During meal and 30-60min after) and Minimize/decrease distractions Recommend Repeat Modified Barium Swallow: No Need for Skilled Speech Therapy Services: Yes Comment: Follow up dysphagia therapy sessions recommended for... -Education re: compensatory strategies to decrease risk for aspiration and reflux aspiration. -Train pt in [place] to improve mild delay in swallow onset. -GERD education. When this SAWMILL MOULDER OPERATOR recommended liquid wash between bites, the patient reported she only drinks her beer before or after a meal. SAWMILL MOULDER OPERATOR recommended water to wash foods during the meal. The patient stated intake of several foods/drinks that will trigger GERD during the study, including burgers, raw onion, and beer. Recommended Referrals: GI Consult (Would recommend getting established w/ GI as an OP due to esophageal retention during MBSS and hx of esophageal impaction.) Education Completed: 1. Described result of evaluation., 2. Pt understands evaluation & agrees with goals and treatment plan. and 7. Pt requires further education on strategies & risks. Status Active ST Patient: Active Contact Information [facility] Speech Therapy:: Krysta Tatum M.A. CCC-SAWMILL MOULDER OPERATOR? Speech-Language Pathologist?? [facility] [address] [place] [address]? [email or web address]?? [phone]
--- NOTE | 2025-05-06 14:49 | HP.SP.EVAL ---
Visit History Visit Info Date of Eval: 05/06/25 Today is Visit #: 1 Coremaker Machine: OSCAR Paredes Attending Doctor: LAURENCE Referring Doctor: LAURENCE Reason for Referral: DYSPHAGIA. RX HERE Medical Diagnosis: Mild oropharyngeal dysphagia; Mild esophageal dysphagia Previous speech therapy: Yes Results: Ana previously participated in an evaluation, an MBSS (see report below), and one subsequent treatment sessions at this facility. Per the d/c summary: She was evaluated on 10/20/24 for dysphagia. Patient participated in MBSS on 11/24/24 with Regular Textures and Thin Liquids recommended with the following Compensatory Strategies: Small Bites (Chew thoroughly), Small Sips, Slow Rate, Alternate bites/solids and sips/liquids (Take a drink after every 1-2 bites), Sitting upright (During meal and 30-60min after) and minimize/decrease distractions. She was treated for one session after MBSS to provide exercises and education. She was to return in one month to re-assess dysphagia at that time. She cancelled an appointment on 12/14/24 and no further visits were scheduled by patient. Other Relevant Medical History/Diagnoses/Surgery: PETAR MARTINEZ is a 70 year old female who presents to [facility] for evaluation of oropharyngeal and esophageal dysphagia. She presented to the evaluation independently and served as historian. Pt reporting her symptoms are the same as they were back in October, have not gotten worse or better. Pt reporting that she has not completed any of the oropharyngeal exercises since the last time she was here for speech therapy, nor has she implemented any of the behavioral changes that were recommended to implement while she was eating (e.g., alternating bites and drinks). She has also continued with previous diet. Ana reports having an EGD completed but was unsure of the results. She stated she thought she was here today for stretching or strengthening exercises. She reports that she is coughing on her saliva still too. PMH is also significant for: Vitamin D toxicity, Former smoker, Asthma, COPD (chronic obstructive pulmonary disease), Hypertension, Partial small bowel obstruction, COVID-19, Emphysema of lung, Benign essential HTN, Lung mass, Climacteric Lumbar spinal stenosis, Peripheral neuropathy, Recurrent manic disorder, Generalized hyperhidrosis, RODRIGUEZ (dyspnea on exertion), Anxiety associated with depression, Chronic pain disorder, Sleep-related breathing disorder, Stage 2 moderate COPD by GOLD classification, Esophageal obstruction due to food impaction, Arnold-Chiari deformity, Alcohol abuse, Osteoporosis EGD 03/31/2025 Impression: - LA Grade A reflux esophagitis with no bleeding. Biopsied. - Moderate Schatzki ring. Dilated. - Small hiatal hernia. - No gross lesions in the entire stomach. - No gross lesions in the entire examined duodenum. 04/15/2025 GI appointment EGD revealed LA Grade A reflux esophagitis, small HH, moderate schatzki ring dilated to 57Fr with no resistance(Savary). Pathologist notes histology is suggestive of H. pylori gastritis and recommends alternative testing if clinical suspicion remains, as the ICH was negative for H. pylori. She is continuing to experience episodes of choking and coughing with eating. She is not following ST recommendations. I have recommended she follow-up with OP ST. Medications related to this diagnosis: Pt reports continuing with Omeprazole. See chart for full list of medications. Smoking Status: Current every day smoker Diagnosis Diagnosis: Mild oropharyngeal dysphagia; Mild esophageal dysphagia Pain Is pain an issue with your current prescribed condition?: No Personal Preferred language: Macedonian Patient Allergies Allergies Allergies: Allergies Fish Containing Products Allergy (Severe, Verified 03/31/25 07:09) Angioedema shellfish derived Allergy (Severe, Verified 03/31/25 07:09) Angioedema Horse/Equine Containing Products Allergy (Unknown, Verified 03/31/25 07:09) NEEDS FOLLOW-UP lisinopril Allergy (Unknown, Verified 03/31/25 07:09) Unknown Objective Dysphagia Administered by Administered by: Self Thin Liquids Administred via: Cup Oral Transit: WNL Bolus clearance: fully cleared Cough: none observed/unable to assess Pharyngeal phase: immediate laryngeal elevation Comments: Asked Pt to start with a drink that was a normal size for her - she took approximately 1 oz with no overt s/sx of penetration/aspiration. Asked Pt to trial a oral prep for two seconds which she was functional in performing. Discussed this may be helpful in slowing her rate of intake down. Also discussed alternating bites and drinks and why this would help clear any retention from her esophagus. Pt reporting that she does not have drinks with her dinner and has not yet attempted this strategy during meal time even after education in October. She appeared to show signs of comprehension of strategy education however ST predicting Pt may have poor follow through. Pureed Administered via: Spoon Oral Preparation: WNL Oral Transit: WNL Bolus clearance: fully cleared Cough: none observed/unable to assess Pharyngeal phase: immediate laryngeal elevation Comments: Asked Pt to initially take a bite that would be a normal bite size for her - she filled the spoon surface and it was mounded up on top of the spoon to make a large bite. Oral organization appeared mild-moderately disorganized, however suspect the large bite was playing a factor. There were no overt s/sx of penetration/aspiration. Cued Pt to take a bite that was half of the size of her original which appeared to improve oral stage organization. At this time we reviewed her MBSS results via viewing the pudding trial on fluoro. Showed Pt the retention, reflux, and slow movement of the pudding bolus through the distal esophagus and why taking a small bite would lessen the demands on her esophagus. Also discussed how following 2-3 bites of pudding, she should take a sip of water to assist in clearance of the bolus. Regular Oral Transit: Delay > 1 seconds Bolus clearance: significant clearance/minimal residue Cough: none observed/unable to assess Pharyngeal phase: immediate laryngeal elevation Comments: Pt presented with three regular food items (i.e., fruit granola bar, LornaDoone, and fruit snack gummies) and asked to choose one that she would like to trial. She chose the fruit snack gummies and after the first bite she reports these are typically difficult for me to chew because of my implants. Her decision to choose the most challenging item shows that she may lack awareness of which food textures are more appropriate for her d/t her implants affecting her chewing. Pt reports taking them out at times, typically after dinner when she is eating her sweet treats. Pt with slow mastication of the fruit snacks and slightly disorganized oral motor control. Pt with no overt s/sx of penetration/aspiration after swallowing. Swallowing Impairment Contributing Factors to Swallowing Impairment: Reduced Alertness or Attention, Difficulty Following Directions, Reduced Oral Strength/Coordination/Sensation and Mastication Inefficiency Impact Impact on Safety & Functioning: No Limitations Recommendations Modified Barium Swallow/Cookie Swallow Recommended: No Swallowing Treatment: Yes Diet Texture Recommendations Solids: Easy to Chew (Level 7) Liquids: Thin (Level 0) Safety Saftey Precautions/Swallowing Recommendations (Check all that Apply): Reduce Distractions, Small Sips & Bites when Eating and Alternate Liquids & Solids Other: Extensive education provided re: GERD precautions. Candy endorsing laying down on the couch directly after dinner (Pt only eating one meal per day and two small snacks). ST stressing the importance of sitting upright for 60 min post PO intake to allow gravity and optimal esophageal positioning to help reduce retention and reflux symptoms. Pt reporting that she is on her feet all day and wants to lay down after dinner. ST stating this was a recommendation and that it was up to Pt on what she wanted to do. As stated above, extensive education was provided on alternating bites of liquids and solids to help with esophageal clearance. Pt reporting that she just has to get into the habit on keeping water next to her at dinner time. She also states that the water will fill her up and she won't be able to eat as much. ST reminding her that she just needs a small sip to help clear her esophagus so it shouldn't impact her satiation too greatly. A handout was provided on swallowing strategies to modify her behavior while she was eating -- ST instructing her to keep the handout next to where she sits to eat dinner to help remind her. ST also providing education on oropharyngeal swallowing exercises: chin tuck against resistance, effortful swallow, and Freddy. Pt functional in performing all of these exercises following education and repetition. Pt inquiring about how long she would need to do the exercises to see results. ST encouraging Pt to complete the exercises 10x for 2-3x/day for a month and then we could slowing start lowering the frequency. Did discuss that it would be recommended that she always completes the exercises, even at a lower frequency, to assist with maintenance of strength given her complex medical history. Pt appearing to understand and stating that she is more likely to participate in exercises if she sees results. Results Swallowing Within Normal Limits: No Swallowing Diagnosis: Oropharyngeal Phase Dysphagia (R13.12) and Pharyngoesophageal Phase Dysphagia (R13.14) Severity: Mild Modified Barium Results Hx If Applicable Enter into a NOTE MBS Report Entered: Yes MBS Results (from prior exam): 05/06/25 14:10 Speech Therapy by Kya Landry [facility] Speech Pathology [address] [place] [address] Modified Barium Swallow Study MR#: [id number] Acct: [id number] Name: JEYSON MARTINEZ Rep #: [id number] : [id number] Modified Barium Swallow Patient Information Study Date: 11/24/24 Study Time: 12:45 Direct Billable Minutes: 70 Total Minutes procedure & reportin Diagnosis: Dysphagia R13.10 Referring Physician: Rito Chew Reason for Referral: assess swallow function, assess risk for aspiration, and determine recommendations for least restrictive diet textures and compensatory strategies to facilitate safe po intake. Medical History: Patient recently seen at [facility] for outpatient swallowing evaluation 10/20/2024 to address dysphagia. Per bedside swallowing evaluation history, patient reported that she is coughing or choking 2-3 times per week with no pattern on foods, liquid or it can also be on just saliva. She reports about half of those episodes she is able to cough up bits of food. In 2016 and 2017 she had esophageal impactions and went to ER for removal. She has a history of COPD and Asthma also. Patient has not been evaluated by GI since being in ER per her report. The patient was recommended for regular textures / thin liquids w/ aspiration precautions (Reduce Distractions, Small Sips & Bites when Eating, Chew thoroughly). Patient was also recommended for MBSS to further assess swallow function and to determine appropriate dysphagia interventions. Of note, patient has an allergy to products containing fish and shellfish derived allergy. Other history: Vitamin D toxicity, Former smoker, Asthma, COPD , HTN, Partial small bowel obstruction, COVID-19, Emphysema of lung, Benign essential HTN, Lung mass, Climacteric Lumbar spinal stenosis, Peripheral neuropathy, Recurrent manic disorder, Generalized hyperhidrosis, RODRIGUEZ, Anxiety associated with depression, Chronic pain disorder, Sleep-related breathing disorder, Stage 2 moderate COPD by GOLD classification, Esophageal obstruction due to food impaction, Arnold-Chiari deformity, Alcohol abuse, Osteoporosis Current Diet Ordered: Regular / Thin Dentition: Natural Teeth and Missing Teeth (implants, still missing posterior dentition) Mental Status: WNL Respiratory Status: Oxygenating on Room Air Penetration-Aspiration Scale Penetration-Aspiration Scale: OBJECTIVE ASSESSMENT OF SWALLOW FUNCTION (QUANTITATIVE ? PER TRIAL): PENETRATION / ASPIRATION SCALE (PRINGLE): 1 = does not enter airway 2 = enters airway/above vocal folds/ejected 3 = enters airway/above vocal folds/not ejected 4 = enters airway/contacts vocal folds/ejected 5 = enters airway/contacts vocal folds/not ejected 6 = enters airway/below vocal folds/ejected 7 = enters airway/below vocal folds/not ejected despite effort 8 = enters airway/below vocal folds/no effort VIDEOFLOROSCOPIC SCALE SCORE (PRINGLE): Grade I = aspiration of material that has penetrated into the laryngeal vestibule, intact cough reflex Grade II = aspiration < 10 % of the bolus, intact cough reflex Grade III = aspiration of < 10 % of the bolus, reduced cough reflex or aspiration of > 10 % of the bolus, intact cough reflex Grade IV = aspiration of > 10 % of the bolus, reduced cough reflex Penetration-Aspiration Scale Score Thin Liquid via teaspoon: Result: 2= enter airway/above vocal folds/ejected Thin Liquid via teaspoon Trial 2: Result: 1= does not enter airway Thin Liquid via large single sip: cup: Result: 2= enter airway/above vocal folds/ejected Thin Liquid via sequential sips: cup: Result: 2= enter airway/above vocal folds/ejected Comment: Esophageal screen - Complete clearance. Pudding via teaspoon: Result: 1= does not enter airway Comment: Esophageal screen - Retention of portion of pudding bolus throughout middle and lower esophagus. Thin Liquid via single sip: straw: Result: 2= enter airway/above vocal folds/ejected Comment: Esophageal screen - Complete clearance. 1/2 Cookie coated in Barium Pudding: Result: 1= does not enter airway Comment: Esophageal screen - Minimal retention in middle esophagus. Thin Liquid via sequential sips:straw: Result: 2= enter airway/above vocal folds/ejected Comment: Esophageal screen - Complete clearance. Oral Phase Labial Seal: No Labial Escape Tongue Control During Bolus Hold: Posterior escape of greater than half of bolus Bolus Preparation/Mastication: Disorganized chewing/mashing with solid pieces of bolus unchewed (Timely mastication; however, small pieces of cookie appeared un-chewed.) Bolus Transport/Lingual Motion: Delayed initiation of tongue motion Oral Residue: Residue collection on oral structures Pharyngeal Phase Initiation of Pharyngeal Swallow: Bolus head in pyriforms Soft Palate Elevation: Trace column of contrast/air between soft palate and pharyngeal wall Laryngeal Elevation: Comp. Superior move thyroid cart w/comp. apprx arytenoid cart-epig pet Anterior Hyoid Excursion: Complete anterior movement Epiglottic Movement: Complete inversion Laryngeal Vestibule Closure at Height of Swallow: Incomplete; narrow column of air/contrast in laryngeal vestibule (trace laryngeal penetration of liquids w/ complete ejection after the swallow) Pharyngeal Stripping Wave: Present - complete Pharyngoesophageal Segment Opening: Complete distension and complete duration; no obstruction of flow Tongue Base Retraction: Trace column of contrast between tongue base & post. pharyngeal wall Pharyngeal Residue: Trace residue within or on pharyngeal structures Esophageal Phase Esophageal Clearance: Esophageal retention Diagnosis/Impression Diagnosis: Mild oropharyngeal dysphagia R13.12; Mild esophageal dysphagia R13.14 Impression: Mild oral deficits, including... -Loss of liquids to the pyriforms (>1/2 the bolus) prior to swallow onset. -Delayed tongue motion for A-P transport. -Timely mastication; however, small pieces of cookie appeared un-chewed. Mild pharyngeal deficits, including... -Delayed swallow onset. -Consistent, trace laryngeal penetration of liquids w/ complete ejection. No aspiration observed. Esophageal deficits... -Retention of pudding in middle and lower esophagus, which fully cleared w/ thin liquid wash. -Small CP bar at the level of C5-C6, which did not impact bolus clearance through the UES. Recommendations Diet: Regular Textures and Thin Liquids Compensatory Strategies: Small Bites (Chew thoroughly), Small Sips, Slow Rate, Alternate bites/solids and sips/liquids (Take a drink after every 1-2 bites), Sitting upright (During meal and 30-60min after) and Minimize/decrease distractions Recommend Repeat Modified Barium Swallow: No Need for Skilled Speech Therapy Services: Yes Comment: Follow up dysphagia therapy sessions recommended for... -Education re: compensatory strategies to decrease risk for aspiration and reflux aspiration. -Train pt in Freddy to improve mild delay in swallow onset. -GERD education. When this AUTOMOTIVE LEASING SALES REPRESENTATIVE recommended liquid wash between bites, the patient reported she only drinks her beer before or after a meal. AUTOMOTIVE LEASING SALES REPRESENTATIVE recommended water to wash foods during the meal. The patient stated intake of several foods/drinks that will trigger GERD during the study, including burgers, raw onion, and beer. Recommended Referrals: GI Consult (Would recommend getting established w/ GI as an OP due to esophageal retention during MBSS and hx of esophageal impaction.) Education Completed: 1. Described result of evaluation., 2. Pt understands evaluation & agrees with goals and treatment plan. and 7. Pt requires further education on strategies & risks. Status Active ST Patient: Active Contact Information [facility] Speech Therapy:: Krysta Tatum M.A. CCC-AUTOMOTIVE LEASING SALES REPRESENTATIVE? Speech-Language Pathologist?? [facility] [address] [place] [address]? [email or web address]?? [phone] Initialized on 05/06/25 14:10 - END OF NOTE Swallowing Performance Scale Swallowing Performance Scale Swallowing Performance Scale Result: 3 Mild Reference: Neuro-QoL instrument Radiation Oncology Patient Plan Plan Plan: Will rx Pt for skilled outpatient tx to address deficits in mild oropharyngeal and esophageal dysphagia. Pt would benefit from training and education re: diet tolerance checks, safe swallowing strategies during PO intake, and swallowing exercises to aid in oropharyngeal strengthening. Without skilled intervention, Pt is at risk for consuming a restrictive diet putting her at risk for aspiration pneumonia and atrophy of laryngeal musculature. Recommendations Treatment Warranted: Yes Treatment Warranted: Dysphagia Comment: - CONTINUE WITH FOLLOWING GI FOR REFLUX AND ESOPHAGITIS MANAGEMENT Progress Prognosis: Good Frequency Frequency: Monthly Duration: 3 Months Visits in this POC: 3 Patient/Family Goal Patient/Family Goal: To decrease coughing and choking Goals that are Established Determination:: Goals will be added/modified as deemed necessary and appropriate. Therapy will be discontinued when results of re-evaluation indicate therapy is no longer needed or lack of progress has been documented. Goal #1-5 Goal #1: Ana will show understanding of oropharyngeal strengthening home exercise program via demonstrating her exercises (i.e., CTAR, effortful swallow, Freddy) to ST across three monthly follow up appointments with 100% acc independently. Goal #2: Ana will show understanding of safe swallowing strategies (i.e., small bites/drinks, alternate bites and drinks, slow rate of intake, sitting upright for 60 min after PO intake) via self report of implementation at home across three monthly follow up appointments with 100% acc independently. Education Patient has Indicated that the Following Identified Educational Needs: None The Patient has indicated that they have no educational or learning abilities that may effect their care.: Yes Patient Instruction Patient Education: Diagnosis, Treatment Plan, Goals, Safety Precautions, Diet Level and Home Exercise Program Person Taught: Patient Teaching Method: Discussion and Demonstration Response to teaching: Return Demonstration and Verbalize Understanding
== END 2025-05-06 19:00 | disposition home or self-care (01) ==
LOC: PT 10:48
PROVIDERS: PCP Family Medicine; Referring Provider Nurse Practitioner Acute Care; Visit Provider Nurse Practitioner Acute Care
DX: K20.90 Esophagitis, unspecified without bleeding (principal); R13.10 Dysphagia, unspecified; R05.8 Other specified cough
CPT/HCPCS: 92610

== ENCOUNTER → 2025-05-10 | Outpatient (CLI) | payer MEDICARE, SELFPAY ==
[2025-05-11 15:08] LABS: H. PYLORI STOOL AG Negative (Negative)
== END | disposition home or self-care (01) ==
LOC: LABSPEC 10:01
PROVIDERS: PCP Family Medicine; Referring Provider Nurse Practitioner Acute Care; Visit Provider Nurse Practitioner Acute Care
DX: R13.10 Dysphagia, unspecified (principal); K20.90 Esophagitis, unspecified without bleeding
CPT/HCPCS: 87338

== ENCOUNTER 2025-08-27 08:32 | Observation (INO) | payer MEDICARE, SELFPAY ==
[2025-08-27] VITALS (16 sets, daily range): BP systolic 98–147; BP diastolic 50–88; PULSE 84–116; RESP 16–18; TEMP 36.6–38; O2SAT 81–97; BMI 19.1
--- NOTE | 2025-08-27 08:46 | CT_ITS ---
PROCEDURE: ABDOMEN/PELVIS W IV CONT ONLY 08/27/2025 REASON FOR EXAM: ABD PAIN, HX OF BOWEL OBSTRUCTION TECHNIQUE: Procedure Code: [id number] Modality: CT Procedure: ABDOMEN/PELVIS W IV CONT ONLY Coronal and Sagittal reconstruction series were provided. CONTRAST: Isovue-300 VOLUME: 75 mL One or more dose reduction techniques were used (e.g., Automated exposure control, adjustment of the mA and/or kV according to patient size, use of iterative reconstruction technique. RADIATION DOSE SUMMARY: DLP: 256.77 mGycm COMPARISON: CT abdomen/pelvis 05/31/2023 FINDINGS: Lower chest: Lung bases are clear. Emphysematous changes of the lungs. Liver: Normal size. Normal enhancement. No enhancing lesion. Gallbladder and biliary ducts: Unremarkable gallbladder. Normal caliber intrahepatic and common bile ducts. Pancreas:Unremarkable. No ductal dilatation or mass. No peripancreatic fluid. Spleen: Unremarkable. Adrenal glands: Unremarkable. Kidneys and ureters: Normal renal size, morphology, and enhancement. No nephroureterolithiasis or hydroureteronephrosis. No renal mass. Urinary bladder: Unremarkable. GI: Unremarkable stomach and duodenum. Normal caliber small bowel and large bowel.No evidence for obstruction. Colonic diverticulosis without evidence of diverticulitis. Appendix: The appendix measures up to 9 mm. Associated mural enhancement. There is periappendiceal fat stranding. Peritoneum: No ascites. Lymph nodes: Right lower quadrant mildly prominent mesenteric lymph nodes. No lymphadenopathy. Vasculature: Portal, splenic, and superior mesenteric veins are patent. No abdominal aortic aneurysm. Atherosclerotic calcification of the abdominal aorta. Reproductive organs: Limited evaluation on CT. The uterus appears lobular in contour which may reflect underlying fibroids. Musculoskeletal and soft tissues: No aggressive osseous lesions. Degenerative changes of the visualized spine. Posterior decompression in the lumbar spine. Unremarkable soft tissues. CT/Abdomen/Pelvis W IV Cont ONLY IMPRESSION: 1. Mildly dilated appendix with periappendiceal inflammatory changes compatible with acute appendicitis. 2. No evidence of bowel obstruction Reading Location: [id number]
--- NOTE | 2025-08-27 08:48 | EDS_ITS ---
HPI History of Present Illness Chief Complaint: Abd Pain Narrative Narrative: Patient 70-year-old female with past medical history of alcohol use about 5 beers daily she states, asthma, COPD history of tobacco use, hypertension, lung mass who presented to the emergency department chief complaint of abdominal pain. States that her abdominal pain started around 6 PM yesterday and notes that she has a history of a bowel blockage and she states that this feels very similar to her previous bowel blockage. When inquiring what caused her bowel blockages she states that she has not had a previous abdominal surgery she states that she does not know you are the doctor you tell me. Patient states that she did have a bowel movement. [facility] Medical History Alcohol use Easy bruising Gastric reflux History of stress test History of echocardiogram History of abdominal aortic aneurysm Vitamin D toxicity Uterine fibroid Former smoker Asthma COPD (chronic obstructive pulmonary disease) Hypertension Partial small bowel obstruction COVID-19 HSV (herpes simplex virus) anogenital infection Overactive bladder Emphysema of lung Benign essential HTN Postmenopausal atrophic vaginitis Lung mass Climacteric Lumbar spinal stenosis Peripheral neuropathy Recurrent manic disorder Cervicalgia Generalized hyperhidrosis Chronic interstitial cystitis RODRIGUEZ (dyspnea on exertion) Anxiety associated with depression Chronic pain disorder Sleep-related breathing disorder Stage 2 moderate COPD by GOLD classification Esophageal obstruction due to food impaction Arnold-Chiari deformity COPD, moderate Alcohol abuse Osteoporosis Home Medications ?Medication ?Instructions ?Recorded ?Last Taken ?Type melatonin 10 mg sublingual tablet 10 mg PO QHS sleepin g pill 05/20/18 03/16/22 21:00 History ascorbic acid (vitamin C) 500 mg 1,000 mg PO DAILY sup plement 06/26/18 03/16/22 09:00 History tablet,extended release biotin 5,000 mcg sublingual tablet 5,000 mcg sublingua l DAILY 02/23/21 03/16/22 09:00 History supplement cyanocobalamin (vitamin B-12) 2,500 mcg PO DAILY suppl ement 04/27/21 03/16/22 09:00 History 2,500 mcg tablet acyclovir 400 mg tablet 400 mg PO BID female issue 0 04/16/22 Unknown History calcium carbonate (Calcium 600) 600 mg PO DAILY bones 06/01/23 Unknown History amlodipine 2.5 mg tablet (Norvasc) 2.5 mg PO DAILY Blo od pressure 01/01/24 03/31/25 History trazodone 150 mg tablet 150 mg PO QHS 07/21/24 Unkno wn History montelukast 10 mg tablet 10 mg PO QPM breathing #90 t abs 10/19/24 Unknown Rx omeprazole 40 mg capsule,delayed 40 mg PO DAILY acid r eflux #90 caps 12/17/24 03/31/25 Rx release albuterol sulfate 90 mcg/actuation 2 puff inhalation Q 6H PRN 02/09/25 Unknown Rx aerosol inhaler (ProAir HFA) shortness of breath or wh eezing #3 ea folic acid 400 mcg tablet 0.4 mg PO QDAY 06/08/25 Unkn own History hydroxyzine HCl 10 mg tablet 10 mg PO QHS 06/08/25 Unk nown History budesonide-formoterol HFA 160 2 inh inhalation BID #3 ea 08/03/25 Unknown Rx mcg-4.5 mcg/actuation aerosol inhaler (Breyna) Allergy/AdvReac Type Severity Reaction Status Date / Time Fish Containing Products Allergy Severe Angioedema Verified 08/27/25 08:34 shellfish derived Allergy Severe Angioedema Verified 08/27/25 08:34 Horse/Equine Containing Allergy Unknown NEEDS Verified 08/27/25 08:34 Products FOLLOW-UP lisinopril Allergy Unknown Unknown Verified 08/27/25 08:34 Family History Father Hypertension Aortic aneurysm Cancer skin and bladder Colon cancer Mother Brain aneurysm Depression Surgical History H/O Spinal surgery H/O eye surgery History of bilateral tubal ligation S/P craniotomy Social History household members: none Smoking Status: Current every day smoker tobacco type: cigarettes second hand exposure: No alcohol intake: current alcohol intake frequency: 3 or more drinks per day Alcohol type: beer details: Drinks 5-6 beers daily, nearly no breaks in her days of intake. substance use type: does not use caffeine: Yes what type of physical activity do you participate in: walking and other details: rosario ROS ROS ED ROS Narrative Constitutional: Denies any fevers, chills, headache Eyes: Denies double vision Cardiovascular: Denies chest pain Respiratory: Denies shortness of breath Abdomen: Complains of abdominal pain as noted above denies nausea vomiting : Denies urinary symptoms Neurological: Denies any numbness, weakness, tingling Musculoskeletal: Denies back pain Skin: Denies rashes or lesions EXAM Physical Exam Narrative Exam Narrative: General: Patient was lying in bed resting comfortably did not appear to be in acute distress Head: Atraumatic, normocephalic Eyes: PERRL bilaterally, EOMI bilaterally, no conjunctival injection noted Neck: Soft, supple, trachea midline Cardiovascular: Regular rate and rhythm Respiratory: Clear to auscultation bilaterally Abdomen: Soft, nondistended, tenderness to palpation of the lower quadrants of her abdomen no rebound or guarding exam Extremities: +5/5 strength noted in the bilateral upper and lower extremities Neurological: Patient is following commands that she was at [facility] year is 2024 Skin: Warm, dry, intact no rashes or lesions noted Const Vital Signs: 08/27/25 08:32 08/27/25 10:32 Temperature 98.2 F Temperature Source Oral Pulse Rate 96 96 Respiratory Rate 18 Blood Pressure 132/88 H 133/75 H Blood Pressure Mean 102 94 Pulse Ox 97 Oxygen Delivery Method Room Air MDM MDM MDM Narrative Medical decision making narrative: Patient is a 70-year-old female who presented to the emergency department the chief complaint of abdominal pain with concern for bowel obstruction. On the differential diagnose includes but not limited to viral gastroenteritis, bowel obstruction, appendicitis, pancreatitis. Once workup is obtained reviewed she will be reevaluated. Patient will given IV fluids and morphine as well as Zofran Patient's CBC significant for a leukocytosis of 16,000, hemoglobin is 14.7, plate count was noted to be normal at 336. Patient sodium normal 136, potassium normal at 4.4, creatinine 0.67. Patient's AST and ALT are 23 and 14 respectively lipase normal at 42 urinalysis reviewed and showed no evidence of infection. Patient CT ab pelvis with IV contrast showed findings compatible with acute appendicitis no evidence of bowel obstruction. Patient given a dose of Zosyn. Did discuss case with on-call general surgeon Dr. Baeza who will accept the patient for admission. I discussed this with the patient all question concerns were answered at bedside. Patient was requesting more medication for pain which she was given more morphine. Patient was NPO. Patient be placed on LR. Lab Data Labs: Laboratory Results - last 24 hr 08/27/25 08/27/25 09:10 09:23 WBC 16.0 H RBC 4.33 Hgb 14.7 Hct 42.3 MCV 97.7 MCH 33.9 H MCHC 34.8 RDW Std Deviation 43.6 RDW Coeff of Jordon 12.0 Plt Count 336 MPV 9.2 Immature Gran % (Auto) 0.400 Neut % (Auto) 83.5 H Lymph % (Auto) 6.6 L [place] % (Auto) 9.0 Eos % (Auto) 0.1 Baso % (Auto) 0.4 Absolute Neuts (auto) 13.3 H Absolute Lymphs (auto) 1.06 Nucleated RBC % 0 Sodium 136 Potassium 4.4 Chloride 100 Carbon Dioxide 24.0 Anion Gap 12 BUN 13 Creatinine 0.67 L Estim Creat Clear Calc 42.01 L Est GFR (MDRD) Non-Af 95 BUN/Creatinine Ratio 19.3 Glucose 89 Calcium 9.3 Total Bilirubin 0.58 AST 23 ALT 14 Alkaline Phosphatase 61 Total Protein 7.3 Albumin 4.2 Globulin 3.2 Albumin/Globulin Ratio 1.3 Lipase 42 Urine Color Yellow Urine Clarity Sl. Cloudy Urine pH 6.0 Ur Specific [place] 1.015 Urine Protein 15 H Urine Glucose (UA) Normal Urine Ketones 50 H Urine Occult Blood 25 H Urine Nitrite Negative Urine Bilirubin Negative Urine Urobilinogen Normal Ur Leukocyte Esterase Negative Urine RBC 0 SEEN Urine WBC 0 SEEN Ur Squamous Epith Cells 0-5 SEEN Urine Bacteria 0 SEEN Urine Mucus 0 SEEN Radiography Diagnostic Testing: Clinical Impression(s) from Imaging Studies Abdomen/Pelvis CT 08/27/25 08:46 IMPRESSION: 1. Mildly dilated appendix with periappendiceal inflammatory changes compatible with acute appendicitis. 2. No evidence of bowel obstruction Reading Location: [id number] Discharge Plan Dx/Rx/DC Orders Clinical Impression: Abdominal pain, Acute appendicitis, History of hypertension Disposition Disposition: [facility]
[2025-08-27] MEDS: 0.9% Normal Saline (1000mL) 1,000 ML 999 ML IV (09:07)
[2025-08-27 09:16] LABS: Hematocrit 42.3 % (37-47); Hemoglobin 14.7 g/dL (12.0-15.0); Immature Granulocytes Count 0.060 X10^3/uL (0.0-0.0); Mean Corp Hgb Conc 34.8 g/dL (32-36); Mean Corpuscular Volume 97.7 fL (81-99); Mean Platelet Vol. 9.2 fl (6.2-12.0); NRBC Flagged by Analyzer 0 % (0-5); Platelet Count 336 K/mm3 (150-450); RBC Distribution Width CV 12.0 % (11.6-14.6); RBC Distribution Width SD 43.6 fl (35.1-43.9); Red Blood Count 4.33 M/mm3 (4.2-5.4); White Blood Count 16.0 K/mm3 (4.4-11.0)
--- OUTSIDE RECORDS SUMMARY | 2025-08-27 09:25 | XMS RPT_ITS | CCD ---
Author Organization [facility] Care Team Providers Care Electrostatic Powder Coating Technician Name Role Phone Rito Camp MD Primary Care Provider Dale FRIEDMAN, Kami Crum Unavailable Unavail able Suleman Gustafson Unavailable Dr. Rito Camp Primary Care Provider Leila CLEAT FEEDER, CLEAT FEEDER-C Sierra Referring Provider Leila CLEAT FEEDER, CLEAT FEEDER-C Sierra Other Provider Dr. Jim Simeon Attending [...] Kami Crum Unavailable Suleman Gustafson Unavailable Bertin RN, Ruth Unavailable Unavailable Rickie RN, Kerrie Unavailable Suleman Gustafson Unavailable Rickie RN, Kerrie Unavailable Dr. Rito Camp Primary Care Provider Dr. Rito Camp Referring Provider Dr. Jeffrey Mckee Attending Provider Leila CLEAT FEEDER, CLEAT FEEDER-C Sierra Attending Provider Dr. Tyler Green Emergency Provider Dr. oBby Jordan Admit Provider Dr. Boby Jordan Attending [...] Provider Dr. Rito Camp Referring Provider Leila CLEAT FEEDER, CLEAT FEEDER-C Sierra Attending Provider Naina FONTANEZ, Rito Vines Primary Care Provider [phone] Asif SMYTH MD, Darvin A Primary Care Provider Tasneem vailable Bran PHILLIPS.GRAVEL SCREENER, Alex Unavailable Peter DOBBINS, Shanita Unavailable Naina FONTANEZ, Dr. Veras Primary Care Provider [phone] Dr. Rito Camp MD Referring Provider Yuly VOSS-CLetha Attending Provider Naina FONTANEZ, Dr. Veras Attending Provider Naina FONTANEZ, Rito Vines Primary Care Provider Naina FONTANEZ, Rito Vines Primary Care Provider Rom VOSS-CAngella Attending Provider Leila VOSS-CSierra Attending Provider Leila VOSS-C, Sierra Referring Provider Dr. Rito Camp MD Primary Care Provider [phone] Naina FONTANEZ, Dr. Veras Referring Provider Yuly VOSS-CLetha Attending Provider Bran PHILLIPS.GRAVEL SCREENER, Alex Unavailable Peter DOBBINS, Shanita Unavailable Dr. Rito Camp MD Primary Care Provider [phone] Naina FONTANEZ, Dr. Veras Referring Provider Dr. Minerva Shore MD Attending Provider Dr. Robe Gill DO Attending Provider Dr. Robe Gill DO Other Provider [phone] Naina FONTANEZ, Dr. Veras Primary Care Provider [phone] Naina FONTANEZ, Dr. Veras Referring Provider Dr. Minerva Shore MD Attending Provider Rom VOSS-C, Angella Attending Provider Naina FONTANEZ, Dr. Veras Primary Care Provider [phone] Rom CLEAT FEEDER-C, Angella Referring Provider Naina FONTANEZ, Dr. Veras Primary Care Physician Letha Arora Attending Physician Mone FONTANEZ, Dr. Palma Attending Physician Jairo SCHMIDT, Dr. Nagel Attending Physician Jairo SCHMIDT, Dr. Nagel Nurse Practitioner Rom VOSS-Angella Moreno Attending Physician Lanette Salinas Attending Physician Doug FONTANEZ, Dr. Stapleton Attending Physician Naina, Rito Primary Care Unavailable Angella Cueto Attending Unavailable Naina, Rito Referring Unavailable Naina, Rito Primary Care Unavailable Naina, Rito Referring Unavailable Robe Gill Attending Unavailable Naina, Rito Primary Care Unavailable Angella Cueto Attending Unavailable Angella Cueto Referring Unavailable Letha Emery Referring Unavailable Suleman Gustafson Attending Unavailable Naina, Rito Primary Care Unavailable Naina, Rito Primary Care Unavailable Robe Gill Attending Unavailable Robe Gill Consulting Unavailable Naina, Rito Referring Unavailable Lanette Carter Attending Unavailable Naina, Rito Primary Care Unavailable Naina, Rito Referring Unavailable Naina, Rito Primary Care Unavailable Pieter Camacho Attending Unavailable Naina, Rito Referring Unavailable Letha Emery Attending Unavailable Naina, Rito Primary Care Unavailable Naina, Rito Primary Care Unavailable Naina, Rito Referring Unavailable Letha Emery Attending Unavailable Naina, Rito Primary Care Unavailable Naina, Rito Referring Unavailable Angella Cueto Attending Unavailable Naina, Rito Referring Unavailable Letha Emery Attending Unavailable Naina, Rito Primary Care Unavailable Naina, Rito Referring Unavailable Naina, Rito Attending Unavailable Naina, Rito Primary Care Unavailable Naina, Rito Referring Unavailable Naina, Rito Attending Unavailable Naina, Rito Primary Care Unavailable Naina, Rito Primary Care Unavailable Leila CLEAT FEEDERSierra Referring Unavailable Leila CLEAT FEEDER, Sierra Attending Unavailable Naina, Rito Primary Care Unavailable Angella Cueto Attending Unavailable Angella Cueto Referring Unavailable Letha Emery Referring Unavailable Letha Emery Attending Unavailable Naina, Rito Primary Care Unavailable NAINA, RITO A Primary Care Unavailable ALEX BROWN Referring Unavailable NAINA, RITO A Primary Care Unavailable SELF Referring Unavailable NAINA, RITO A Attending Unavailable Wendy'HUMBERTOMARY ANN ERNANDEZ Attending Unavailable NAINA, RITO A Primary Care Unavailable PETER, SHANITA Referring Unavailable Wendy'HUMBERTOMARY ANN ERNANDEZ Attending Unavailable NAINA, RITO A Primary Care Unavailable GREEN, SHANITA Referring Unavailable SHANNA NEWTON Referring Unavailable NAINA, RITO [...] NAINA, RITO A Primary Care Unavailable NAINA, RTIO A Attending Unavailable NAINA, RITO A Primary Care Unavailable NAINA, RITO A Referring Unavailable NAINA, RITO A Primary Care Unavailable NAINA, RITO A Referring Unavailable ALEX BROWN Attending Unavailable NAINA, RITO A Primary Care Unavailable GREEN, SHANITA Referring Unavailable GREEN, SHANITA Referring Unavailable NAINA, RITO A Primary Care Unavailable NAINA, RITO A Primary Care Unavailable GREEN, SHANITA Attending Unavailable SELF Referring Unavailable NAINA, RITO A Primary Care Unavailable SELF Referring Unavailable PETER, SHANITA Attending Unavailable NAINA, RITO A Primary Care Unavailable ALEX BROWN Attending Unavailable [place] Attending Unavailable NAINA, RITO A Primary Care Unavailable SELF Referring Unavailable [place] Referring Unavailable NAINA, RITO A Primary Care Unavailable NAINA, RITO A Primary Care Unavailable Allergies Allergy Classification Reported Allergen(s) Allergy Type Date of Onset Reaction(s) Facility Angiotensin Converting Enzyme (ANDRES) Inhibitors (1 source) Lisinopril Drug Allergy 6 Cough [facility] Shellfish (1 source) Shellfish Food Allergy 3 Unknown [facility] (20 sources) Fish; Translations: [FISH] Food Allergy 5 [facility] Work Phone: (20 sources) Lisinopril; Translations: [LISINOPRIL] Drug Allergy 6 Cough [facility] Work Phone: (20 sources) HORSE SERUM [Other] Propensity to adverse reactions 5 Unknown [facility] Work Phone: (20 sources) SEAFOOD [Other] Propensity to adverse reactions 5 [facility] Work Phone: (4 sources) Seafood Allergy to substance 1 Angioedema [facility] Work Phone: (17 sources) Fish Containing Products; Translations: [Fish Containing Products] Allergy to substance 1 Angioedema [facility] (3 sources) horse serum Allergy to substance 1 Unknown [facility] Work Phone: (14 sources) Horse/Equine Containing Products; Translations: [HORSE/EQUINE CONTAINING PRODUCTS] Allergy to substance 2 NEEDS FOLLOW-UP [facility] (20 sources) Shellfish; Translations: [shellfish derived] Allergy to substance 3 Unknown [facility] (20 sources) Horse/Equine Containing Products Propensity to adverse reactions to drug 3 Unknown [facility] Work Phone: (1 source) Lisinopril Drug Allergy 5 [facility] (1 source) Horse/Equine Containing Products Drug allergy (disorder) 5 [facility] Medications Current Medications Medication Drug Class(es) Dates Sig (Normalized) Sig (Original) acyclovir 400 mg oral tablet (20 sources) Herpesvirus Nucleoside Analog DNA Polymerase Inhibitor, Herpes Simplex Virus Nucleoside Analog DNA Polymerase Inhibitor, Herpes Zoster Virus Nucleoside Analog DNA Polymerase Inhibitor Start: 07-25-2021 End: 11-30-2024 take 1 tablet by mouth twice daily Start: 10-18-2020 End: 04-03-2021 take 1 tablet by mouth twice daily acyclovir (ZOVIRAX) 400 mg tablet Take 1 tablet by mouth twice daily. 90 tablet 3 10/18/2020 04/03/2021 Discontinued Comment on above: Take 1 tablet by [facility] twice daily. amLODIPine 2.5 mg oral tablet (20 sources) Dihydropyridine Calcium Channel Kana Start: 08-29-2022 End: 09-30-2024 take 1 tablet by mouth once daily Start: 09-20-2021 End: 08-27-2022 take 1 tablet by mouth once daily amLODIPine (NORVASC) 2.5 mg tablet Indications: Essential hypertension, benign Take 1 tablet by mouth once daily. 90 tablet 1 09/20/2021 04/30/2022 Discontinued Start: 04-27-2021 End: 01-01-2024 take 2 tablets by mouth once daily Amlodipine (Norvasc) 2.5 mg tablet Discontinued 5 mg PO DAILY April 27, 2021 11:22am January 01, 2024 8:45am Blood pressure Start: 12-02-2018 End: 04-27-2021 take 1 tablet by mouth once daily Amlodipine (Norvasc) 2.5 mg tablet Discontinued 2.5 mg PO DAILY December 02, 2018 12:00am April 27, 2021 11:25am Comment on above: Take 1 tablet by [facility] once daily. ascorbic acid 500 mg extended release oral tablet (20 sources) Vitamin C Start: 06-26-2018 take 2 tablets by mouth once daily Start: 06-26-2018 take 1000 mg by mouth [...] Comment on above: Take 1,000 mg by [facility] twice daily. azithromycin 250 mg oral tablet (20 sources) Macrolide Antimicrobial Start: 06-07-20 End: 06-12-20 [...] mg tablet Discontinued 250 mg PO daily 6 0 December 02, 2018 12:00am October 12, 2019 11:25am Comment on above: Take 2 tablets day o ne, then, 1 tablet daily until gone. Take 2 tablets by [facility] once daily for 1 day, THEN 1 tablet once daily for 4 days. biotin 5 mg sublingual tablet (20 sources) Start: 02-23-2021 take 1 tablet under the tongue once daily BIOTIN ORAL Take 5,000 mcg by mouth. Active BIOTIN ORAL Take 5,000 mcg by mouth. 0 Active Comment on above: Take 5,000 mcg by [facility]. Budesonide-Formoterol (20 sources) Corticosteroid, beta2-Adrenergic Agonist Start: 03-25-2025 Start: 03-25-2025 Budesonide-For moterol (Breyna) 160-4.5 mcg/actuation HFA aerosol inhaler Active 2 NMA INHALATION TWICE A DAY March 25, 2025 12:00am Start: 07-21-2024 End: 03-25-2025 Budesonide-Formoterol (Symbi justus) 160-4.5 mcg/actuation HFA aerosol inhaler Discontinued 2 NMA INHALATION TWICE A DAY 3 1 July 21, 2024 1:00am March 25, 2025 3:55pm Asthma-chronic obstructive pulmonary disease overlap syndrome Chronic obstructive pulmonary disease, unspecified Start: 07-21-2024 Budesonide-For moterol (Symbicort) 160-4.5 mcg/actuation HFA aerosol inhaler Active 2 NMA INHALATION TWICE A DAY 3 July 21, 2024 1:00am Start: 08-19-2023 End: 07-21-2024 Budesonide-Formoterol (Symbi justus) 160-4.5 mcg/actuation HFA aerosol inhaler Discontinued 2 NMA INHALATION TWICE A DAY 3 3 August 19, 2023 10:18am July 21, 2024 12:47pm copd administer with spacer, rinse mouth after each use Start: 08-19-2023 End: 07-21-2024 Budesonide-Formoterol (Symbi justus) 160-4.5 mcg/actuation HFA aerosol inhaler Discontinued 2 NMA INHALATION TWICE A DAY 3 August 19, 2023 10:18am July 21, 2024 12:47pm administer with spacer, rinse mouth after each use Start: 08-19-2023 take 1 puff(s) by [facility] twice daily Budesonide-Formoterol (Symbicort) 160-4.5 mcg/actuation HFA aerosol inhaler Active 2 PUFF INHALATION TWICE A DAY 3 August 19, 2023 10:18am administer with spacer, rinse mouth after each use Start: 08-29-2022 End: 08-19-2023 Budesonide-Formoterol (Symbi justus) 160-4.5 mcg/actuation HFA aerosol inhaler Discontinued 2 NMA INHALATION TWICE A DAY 3 3 August 29, 2022 3:27pm August 19, 2023 10:18am copd administer with spacer, rinse mouth after each [...] use Start: 08-29-2022 take 1 puff(s) by [facility] twice daily Budesonide-Formoterol (Symbicort) 160-4.5 mcg/actuation HFA aerosol inhaler Active 2 PUFF INHALATION TWICE A DAY 3 August 29, 2022 3:27pm administer with spacer, rinse mouth after each use Start: 03-17-2022 End: 08-29-2022 Budesonide-Formoterol (Symbi justus) 160-4.5 mcg/actuation HFA aerosol inhaler Discontinued 2 NMA INHALATION TWICE A DAY March 17, 2022 11:05pm August 29, 2022 3:27pm copd administer with spacer, rinse mouth after each [...] use Start: 03-17-2022 take 1 puff(s) by [facility] twice daily Budesonide-Formoterol (Symbicort) 160-4.5 mcg/actuation HFA aerosol inhaler Active 2 PUFF INHALATION TWICE A DAY March 17, 2022 11:05pm administer with spacer, rinse mouth after each use Start: 12-22-2018 SYMBICORT 160- 4.5 mcg/actuation inhaler 12/22/2018 Active Start: 12-22-2018 End: 03-17-2022 Budesonide-Formoterol (Symbi justus) 160-4.5 mcg/actuation HFA aerosol inhaler Discontinued 2 NMA INHALATION TWICE A DAY 3 3 August 24, 2020 3:00pm March 17, [...] 30, 2018 8:16am calcium carbonate 1500 mg or al tablet (20 sources) Start: 06-01-2023 take 1 tablet by [facility] once daily Start: 05-09-2016 End: 04-27-2021 take 2 tablets by mouth once daily Calcium Carbonate 600 MG tablet Discontinued 1200 mg PO DAILY May 09, 2016 12:00am April 27, 2021 10:38am Start: 05-09-2016 End: 04-27-2021 take 1200 mg by mouth once daily Calcium Carbonate Discontinued 1200 MG PO DAILY May 09, 2016 12:00am April 27, 2021 10:38am cyclobenzaprine hydrochloride 10 mg oral tablet (4 sources) Muscle Relaxant Start: 05-14-2025 take 1 tablet by mouth three times daily as needed for muscle spasms cyclobenzaprine (FLEXERIL) 10 mg tablet Indications: Lumbar radiculopathy , Lumbar back pain , Radiculopathy of lumbar region Take 1 tablet by mouth three times a day as needed for muscle spasm. 30 tablet 05/14/2025 Active dextromethorphan hydrobromide 1 mg/ml / guaiFENesin 20 mg/ml oral solution (20 sources) Uncompetitive S-lejlsf-[place]part[place] te Receptor Antagonist, Sigma-1 Agonist Start: 06-10-2024 take 10 mL by mouth every four hours as needed Dextromethorphan-gua iFENesin (ROBITUSSIN COUGH-CHEST ESTEFANÍA DM) 5-100 mg/5 mL liqd Take 10 mL by mouth every 4 hours as needed. 237 mL 06/10/2024 Active Start: 01-01-2024 End: 01-01-2024 Dextromethorphan-Guaifenesin (Mucinex Dm) 30-600 mg tablet extended release 12 hr Discontinued 2 {tbl} PO Q12H January 01, 2024 12:00am January 01, 2024 9:02am doxycycline hyclate 100 mg oral tablet (4 sources) Tetracycline-class Drug Start: 07-31-2024 End: 08-07-2024 take 1 tablet by mouth twice daily doxycycline (VIBRA-TABS) 100 mg tablet Indications: Bacterial pneumonia Take 1 tablet by mouth two times a day for 7 days. 14 tablet 07/31/2024 08/07/2024 Active escitalopram 10 mg oral tablet (18 sources) Serotonin Reuptake Inhibitor Start: 04-27-2021 take [...] 1 day. 1 tablet 06/03/2024 06/04/2024 Active folic acid 0.4 mg oral tablet (20 sources) Start: 06-08-2025 take 0.4 mg by mouth once daily End: 09-27-2022 take 1 tablet by mouth [...] dir ected. guaiFENesin 1200 mg oral tablet (10 sources) Start: 01-01-2024 take 1200 mg by mouth every twelve hours Guaifenesin Active 1200 MG PO Q12H 60 January 01, 2024 12:00am Start: 01-01-2024 End: 07-21-2024 take 1 tablet by mouth every twelve hours Guaifenesin 1,200 mg tablet extended release 12hr Discontinued 1200 mg PO Q12H 60 6 January 01, 2024 12:00am July 21, 2024 12:03pm Smoking greater than 30 pack years Nicotine dependence, cigarettes, uncomplicated hydrOXYzine hydrochloride 10 mg oral tablet (20 sources) Antihistamine Start: 06-08-2025 take 1 tablet by [facility] at bedtime Start: 09-27-2022 End: 03-25-2025 take 1 tablet by mouth at bedtime Hydroxyzine Hcl 10 mg tablet Discontinued 10 mg PO AT BEDTIME June 01, 2023 12:00am March 25, 2025 3:56pm sleep Comment on above: Take 1 tablet by [facility] daily at bedtime. iv contrast (will be provided with radiology test) (4 sources) Start: 03-26-2024 End: 03-27-2024 iv contrast (will be provided with radiology test) Indications: Fall, initial encounter [...] in the CT contrast administration guidelines link. nitrofurantoin, macrocrystals 25 mg / nitrofurantoin, monohydrate 75 mg oral capsule (3 sources) Nitrofuran Antibacterial Start: End: take 1 capsule by mouth twice daily at mealtime nitrofurantoin monohydrate and macrocrystal (MACROBID) 100 mg capsule Take 1 capsule by mouth two times a day with meals for 7 days. 14 capsule 06/05/2024 06/12/2024 Active omeprazole 40 mg delayed release oral capsule (20 sources) Proton Pump Inhibitor Start: End: take 1 capsule by mouth once daily Start: 12-10-2019 End: 01-27-2021 take 1 capsule by mouth once daily omeprazole (PRILOSEC) 40 mg capsule Take 1 capsule by mouth once daily. 90 capsule 3 09/05/2020 01/27/2021 Discontinued (Clinical Decision) Comment on above: Take 1 capsule by [facility] once daily. perflutren lipid microspheres 1.3 mL in NaCl (PF) 0.9% 10 mL injection (DEFINITY) (1 source) Start: 4 End: 4 perflutren lipid microspheres 1.3 mL in NaCl (PF) 0.9% 10 mL injection (DEFINITY) predniSONE 10 mg oral tablet (20 sources) Start: 4 End: 4 take 3 tablets by mouth once daily, [...] tablet Disc ontinued 10 mg PO daily 30 December 25, 2023 8:01am January 01, 2024 9:01am take 4 tabs for three days, then 3 tabs for three days, then 2 tabs for three days, then 1 tab for 3 days Start: 07-05-2022 End: 02-25-2023 Prednisone 10 mg tablet Disc ontinued 10 mg PO daily 30 July 05, 2022 12:00am February 25, 2023 [...] tablet Disc ontinued 10 mg PO daily 30 January 04, 2021 12:00am January 23, 2021 11:38am take 4 tabs for three days, then 3 tabs for three days, then 2 tabs for three days, then 1 tab for 3 days Comment on above: Take 2 tablets by mo [facility] once daily for 5 days. Take 3 tablets by mo [facility] once daily for 5 days. 125 ml sodium chloride 9 mg/ml prefilled syringe (1 source) Start: 10-01-2023 End: 10-08-2023 sodium chloride 0.9 % (flush) 10 mL (BD POSIFLUSH) traZODone hydrochloride 150 mg oral tablet (20 sources) Serotonin Reuptake Inhibitor Start: 03-07-2023 End: 03-22-2025 take 1 tablet by mouth at bedtime Start: 08-29-2022 End: 02-20-2023 take 1 tablet [...] 20, 2018 12:00am July 21, 2024 12:04pm sleep Start: 03-17-2017 End: 01-29-2018 take 50-100 mg [...] bedtime. vitamin b12 2.5 mg oral tablet (16 sources) Vitamin B12 Start: 04-27-2021 take 1 tablet by mouth once daily Vitamin [id number] Acid (Folic Acid Plus B12) 1-0.8 mg Tablet (1 source) Start: 03-17-2022 take 1 tablet by mouth once daily Vitamin [id number] Acid (Folic Acid Plus B12) 1-0.8 mg [...] (Original) acetaminophen 325 mg / HYDROcodone bitartrate 10 mg oral tablet (6 sources) Opioid Agonist Start: 04-29-2025 End: 05-14-2025 take 1 tablet by mouth every eight hours as needed HYDROcodone-Acetami nophen (NORCO) 10-325 mg per tablet Take 1 tablet by mouth every 8 hours as needed. 04/29/2025 05/14/2025 Discontinued Start: 10-15-2023 End: 10-18-2023 take 1 tablet by mouth every eight hours as needed for pain HYDROcodone-acetaminophen (NORCO) 5-325 mg per tablet Indications: Neck pain , Acute pain of right shoulder Take 1 tablet by mouth every 8 hours as needed for pain for up to 3 days. 9 tablet 0 10/15/2023 10/18/2023 Active Comment on above: Take 1 tablet by [facility] every 8 hours as needed for pain for up to 3 days. [id number] 200 actuat albuterol 0.09 mg/actuat metered dose [...] Hf a) 90 mcg/actuation HFA aerosol inhaler Discontinued 2 NMA INHALATION EVERY 6 HOURS as needed for shortness of breath or wheezing 3 August 29, 2022 3:26pm February 09, 2025 11:08am Start: 09-10-2019 End: [...] for For wheezing or Shortness of Breath 20 07September 08, 2019 3:07pm September 10, 2019 4:25pm Chronic obstructive pulmonary disease, unspecified Start: 05-28-2018 End: 09-10-2019 take 1 puff(s) [...] / ipratropium bromide 0.167 mg/ml inhalation solution (10 sources) Anticholinergic, beta2-Adrenergic Agonist Start: 024 End: 025 take 1 mL by inhalation every four hours as needed for wheezing Ipratropium-Albute rol 0.5 mg-3 mg(2.5 mg base)/3 mL solution for nebulization Discontinued 3 mL INHALATION EVERY 4 HOURS NEEDED as needed for SOB &/OR WHEEZING 180 December 25, 2023 12:00am March 25, 2025 4:00pm Asthma-chronic obstructive pulmonary disease overlap syndrome Chronic obstructive pulmonary disease, unspecified Start: 12-25-2023 take 1 mL by inhalat ion every four hours as needed Ipratropium-Albuterol Active 3 ML INHALATION EVERY 4 HOURS NEEDED December 25, 2023 12:00am alendronic acid 70 mg oral tablet (20 sources) Bisphosphonate Start: 12-29-2024 End: 06-08-2025 take 1 tablet by mouth every week Alendronate 70 mg tablet Discontinued 70 mg PO EVERY WEEK February 09, 2025 12:00am June 08, 2025 10:54am Start: 02-23-2021 End: 04-27-2021 take 70 mg by mouth every week Alendronate 70 mg/75 mL Solution Discontinued 70 mg PO EVERY WEEK February 23, 2021 12:00am April 27, 2021 10:36am Start: 12-10-2019 End: 02-25-2023 take 1 tablet by mouth every week Alendronate 70 mg tablet Discontinued 70 mg PO EVERY WEEK April 27, 2021 12:00am February 25, 2023 9:29am Osteoporosis Comment on above: Take 1 tablet by [facility] one time a week. Take with a full glass of water, on an empty stomach; do NOT lie down for 30minutes. amoxicillin 875 mg / clavulanate 125 mg oral tablet (20 sources) Penicillin-class Antibacterial Start: 01-01-2024 End: 07-21-2024 Amoxicillin-Pot Clavulanate 875-125 mg tablet Discontinued 1 {tbl} PO TWICE A DAY January 01, 2024 12:00am July 21, 2024 12:03pm Smoking greater than 30 pack years Nicotine dependence, cigarettes, uncomplicated Start: 05-01-2024 take 1 tablet by [facility] twice [...] on above: Take 1 capsule by mo sch three times a day as needed. Take 2 capsules by m outh three times a day as needed. busPIRone hydrochloride 15 mg oral tablet (16 sources) Start: End: take 1 tablet by [...] 27, 2021 12:00am June 01, 2023 1:21am supplement Start: 04-27-2021 End: 06-01-2023 take 2 capsules [...] Take one(1) tablet t wo(2) times daily. celecoxib 200 mg oral capsule (20 sources) Nonsteroidal Anti-inflammatory Drug Start: 025 End: 025 take 1 capsule by mouth once daily celecoxib (CELEBREX) 200 mg capsule Take 1 capsule by mouth once daily. 30 capsule 1 10/01/2024 05/14/2025 Discontinued cetirizine hydrochloride 10 mg oral tablet (20 sources) Histamine-1 Receptor Antagonist Start: 023 End: 024 take 1 tablet by mouth once daily cetirizine (ZYRTEC) 10 mg tablet Indications: Runny nose Take 1 tablet by mouth once daily. 90 tablet 02/15/2023 06/05/2024 Discontinued (Course of therapy completed) Comment on above: Take 1 tablet by north once daily. cholecalciferol 0.125 mg oral tablet (16 sources) Vitamin D Start: 021 End: take 1 tablet by mouth once daily Cholecalciferol (Vitamin D3) (Vitamin D3) 125 mcg (5,000 unit) Tablet Discontinued 125 ug PO DAILY February 23, 2021 12:00am February 25, 2023 9:30am supplement 1 ml denosumab 60 mg/ml prefilled syringe (20 sources) RANK Ligand Inhibitor Start: 023 End: denosumab (PROLIA) 60 mg/mL 60 mg once every 6 months, per Endo: Dr. mckee 02/27/2023 10/01/2023 Discontinued (Cost of medication) Start: 02-25-2023 End: 06-01-2023 Denosumab (Prolia) 60 mg/mL syringe Discontinued 60 mg SC every 6 months 1 February 25, 2023 12:00am June 01, 2023 1:22am Comment on above: 60 mg once every 6 m onths, per Endo: Dr. mckee doxepin 3 mg oral tablet (6 sources) Tricyclic Antidepressant Start: 03-15-20 End: 04-12-20 take 1 tablet by mouth once daily at bedtime, then take 2 tablets by mouth once daily at bedtime Doxepin 3 mg tab Take 1 tablet by mouth daily at bedtime for 14 days, THEN 2 tablets daily at bedtime for 14 days. 60 tablet 1 03/15/2025 04/05/2025 Discontinued enteric contrast (will be provided with radiology test) (2 sources) Start: 12-05-19 End: 12-06-19 enteric contrast (will be provided with radiology [...] Contrast as designated per enteric contrast guidelines fluticasone propionate 0.05 mg/actuat metered dose nasal spray (20 sources) Corticosteroid Start: 04-17-20 End: 03-25-20 take 50 ug nasal route once daily as needed Fluticasone Propionate (Flonase Allergy Relief) 50 mcg/actuation spray,suspension Discontinued 2 NMA INTRANASAL DAILY as needed for allergies January 01, 2024 8:42am March 25, 2025 3:56pm administer into each nostril Start: 04-17-2023 End: [...] mcg/actuation spray,suspension Discontinued 2 NMA INTRANASAL DAILY 15 02October 12, 2019 11:25am April 27, 2021 10:39am Start: 12-22-2018 End: 04-27-2021 Fluticasone Propionate Disco ntinued 2 SPRAY INTRANASAL DAILY October 12, 2019 11:25am April 27, 2021 10:39am Comment on above: Use 2 Sprays in each nostril once daily. Rinse mouth after use. Fluticasone-Umeclidin- Vilanter (20 sources) Anticholinergic, Corticosteroid, beta2-Adrenergic Agonist Start: 11-07-2018 End: 10-12-2019 Glpvbbhwyzz-Gsombcsoa-Opof nter (Trelegy Ellipta) 100-62.5-25 mcg blister with device Discontinued 1 NMA INHALATION DAILY 3 3 November 07, 2018 2:57pm October 12, 2019 11:24am Start: 11-07-2018 End: 10-12-2019 Hhpqtjpokxj-Wqxffvxid-Tgvtug er (Trelegy Ellipta) 100-62.5-25 mcg blister with device Discontinued 1 NMA INHALATION DAILY 3 November 07, 2018 2:57pm October 12, 2019 11:24am Start: 11-07-2018 End: 10-12-2019 Uyjwwyahmjn-Nkhyczoyn-Duzkoq er (Trelegy Ellipta) 100-62.5-25 mcg blister with device Discontinued 1 INH INHALATION DAILY November 07, 2018 2:57pm October 12, 2019 11:24am Start: 11-07-2018 End: 11-07-2018 Bebsfkbewht-Nrblboops-Ufkpjl er (Trelegy Ellipta) 100-62.5-25 mcg blister with device Discontinued 1 NMA INHALATION DAILY 3 3 November 07, 2018 2:39pm November 07, 2018 2:57pm Start: 11-07-2018 End: 11-07-2018 Ifjzutravfo-Eikuprypx-Idstmv er (Trelegy Ellipta) 100-62.5-25 mcg blister with device Discontinued 1 NMA INHALATION DAILY November 07, 2018 2:39pm November 07, 2018 2:57pm Start: 11-07-2018 End: 11-07-2018 Trkcgcimbca-Qzyuulhwm-Auxrdv er (Trelegy Ellipta) 100-62.5-25 mcg blister with device Discontinued 1 INH INHALATION DAILY November 07, 2018 2:39pm November 07, 2018 2:57pm Start: 07-04-2018 End: 11-07-2018 Xkkpykvfhqc-Shtjkumjn-Nmxpta er (Trelegy Ellipta) 100-62.5-25 mcg blister with device Discontinued 1 INH INHALATION DAILY July 04, 2018 3:42pm November 07, 2018 2:40pm Start: 07-04-2018 End: 11-07-2018 Oosugwyihme-Jmraaelgh-Uxuenw er (Trelegy Ellipta) 100-62.5-25 mcg blister with device Discontinued 1 NMA INHALATION DAILY July 04, 2018 12:00am November 07, 2018 2:40pm Start: 07-04-2018 End: 11-07-2018 Hzvzvtbywqs-Ziftyflhr-Ikxzsz er (Trelegy Ellipta) 100-62.5-25 mcg blister with [...] water and spit out; do not swallow ipratropium bromide 0.042 mg/actuat metered dose nasal spray (2 sources) Anticholinergic Start: 09-15-2024 End: 03-25-2025 Ipratropium [place] 42 mcg (0.06 %) spray,non-aerosol Discontinued 2 NMA INTRANASAL THREE TIMES A DAY 15 September 15, 2024 1:00am March 25, 2025 3:59pm administer into each nostril Ipratropium [place] 42 mcg (0.06 %) spray,non-aerosol (7 sources) Start: 09-15-2024 End: 03-25-2025 Ipratropium [place] 42 mcg (0.06 %) spray,non-aerosol Discontinued 2 NMA INTRANASAL THREE TIMES A DAY 14 11September 15, 2024 1:00am March 25, 2025 3:59pm administer into each nostril Start: 09-15-2024 Ipratropium [place] 42 mcg (0.06 %) spray,non-aerosol Active 2 NMA INTRANASAL THREE TIMES A DAY September 15, 2024 1:00am administer into each nostril 2 ml ketorolac tromethamine 30 mg/ml injection (2 sources) Nonsteroidal Anti-inflammatory Drug, Cyclooxygenase Inhibitor Start: 05-14-2025 End: 05-14-2025 keTORolac 30 mg injection (Toradol) Start: 05-14-2025 End: 05-14-2025 30 mg, INTRAMUSCULAR, ONCE, 1 dose, On Sat05/14/25 at 1100, Ketorolac (Toradol) is indicated for the short-term (up to 5 days) management of moderately severe acute pain. Continuation of ketorolac (Toradol) beyond 5 days increases the risk of developing serious adverse events. Please verify the duration of therapy for ketorolac (Toradol). lidocaine hydrochloride 0.02 mg/mg topical gel (2 [...] 1 tablet by [place] at bedtime Start: 09-26-2017 End: 10-01-2024 take 1 capsule by mouth every two hours at bedtime Melatonin 5 mg cap 5 mg by mouth taken 2 hours prior to bedtime 180 capsule 3 09/26/2017 10/01/2024 Discontinued (Adjust Sig - Block E-Cancel) Comment on above: 5 mg by mouth taken 2 hours prior to bedtime methylPREDNISolone 4 mg oral tablet (7 sources) Corticosteroid Start: 04-15-20 End: 05-14-20 methylPREDNISolone (MEDROL DOSE-PACK) 4 mg Dose-Pack Take by mouth once daily. 04/15/2025 05/14/2025 Discontinued Start: 06-08-2023 End: 06-14-2023 methylPREDNISolone (MEDROL, NASEEM,) 4 mg Dose-Pack Follow dosing instructions, take with food. 21 tablet 0 06/08/2023 06/14/2023 Active Comment on above: Follow dosing instru ctions, take with food. montelukast 10 mg oral tablet (20 sources) Leukotriene Receptor Antagonist Start: End: take 1 tablet by mouth once daily in the evening Montelukast 10 mg tablet Discontinued 10 mg PO EVERY EVENING 90 3 November 25, 2023 2:21pm October 19, 2024 11:50am breathing multivit-min/folic acid/ykb558 (ALIVE WOMEN'S GUMMY VITAMINS ORAL) (2 sources) End: multivit-min/folic acid/sut351 (ALIVE WOMEN'S GUMMY VITAMINS ORAL) Take by [...] above: Take 1 capsule by mo [facility] daily at bedtime. nystatin [id number] unt/ml oral suspension (16 sources) Polyene Antifungal Start: 019 End: 021 Nystatin 100,000 unit/mL suspension Discontinued 15 mL MUCOUS MEM THREE TIMES A DAY 250 1 December 22, 2018 12:00am April 27, 2021 10:39am swish and swallow 15 cc three times per day for 10 days Start: 12-22-2018 End: 04-27-2021 Nystatin Discontinued 15 ML MUCOUS MEM THREE TIMES A DAY 250 December 22, 2018 12:00am April 27, 2021 10:39am swish and swallow 15 cc three times per day for 10 days ondansetron 4 mg oral tablet (8 sources) Serotonin-3 Receptor Antagonist Start: 12-17-2024 End: 06-08-2025 take 2 tablets by mouth every two hours as needed, then take 1 tablet by mouth every four hours as needed Ondansetron Hcl 4 mg tablet Discontinued 4 mg PO .COMPLEX 5 0 December 17, 2024 12:00am June 08, 2025 10:54am 4 mg orally; take two tablets PO two hours prior to start of bowel prep and one every 4 hours as needed for N/V 24 hr oxybutynin chloride 5 mg extended release oral tablet (2 sources) Cholinergic Muscarinic Antagonist Start: 04-30-2022 End: 05-08-2022 take 1 tablet by mouth once daily oxybutynin XL (DITROPAN XL) 5 mg 24 hr tablet Take 1 tablet by mouth once daily. 90 tablet 1 04/30/2022 05/08/2022 Discontinued Comment on above: Take 1 tablet by [facility] once daily. Peg 3350-Sod Sulf,Gsbb-Kvm-Ywu (2 sources) Start: 12-17-2024 End: 12-21-2024 Peg 3350-Sod Sulf,Xdpc-Ncl-Yhk (Suflave) 178.7-7.3-0.5 gram recon soln Discontinued 0 PO .COMPLEX 2 0 December 17, 2024 12:00am December 21, 2024 5:32pm take as directed for split dose bowel prep Peg 3350-Sod Sulf,Ipef-Kuh-Ppf (Suflave) 178.7-7.3-0.5 gram recon soln (6 sources) Start: 12-17-2024 End: 12-21-2024 Peg 3350-Sod Sulf,Bfqo-Nkp-Vmg (Suflave) 178.7-7.3-0.5 gram recon soln Discontinued 0 PO .COMPLEX 2 0 December 17, 2024 12:00am December 21, 2024 5:32pm take as directed for split dose bowel prep Start: 12-17-2024 End: 12-21-2024 Peg 3350-Sod Sulf,Chlr-Pot-M ag (Suflave) 178.7-7.3-0.5 gram recon soln Discontinued 0 [...] as needed. 6 tablet 06/05/2024 08/03/2024 Discontinued polyethylene glycol 3350 [id number] mg / potassium chloride 2970 mg / sodium bicarbonate 6740 mg / sodium chloride 5860 mg / sodium sulfate 76666 mg powder for oral solution (8 sources) Osmotic Laxative Start: 12-21-2024 End: 04-13-2025 Peg 3350-Electrolytes (Golytely) 236-22.74-6.74 -5.86 gram recon soln Discontinued 240 mL PO Q10M 4000 0 December 21, 2024 12:00am April 13, 2025 11:13am take as directed for split dose bowel prep QUEtiapine 25 mg oral tablet (20 sources) Atypical Antipsychotic Start: 02-09-2025 End: 03-25-2025 take 1 tablet by mouth at bedtime Quetiapine 25 mg tablet Discontinued 25 mg PO AT BEDTIME February 09, 2025 12:00am March 25, 2025 3:59pm Start: 01-05-2025 End: 06-08-2025 take 1 tablet by mouth at bedtime Quetiapine 50 mg tablet Discontinued 50 mg PO AT BEDTIME February 09, 2025 12:00am June 08, 2025 10:54am Start: 10-01-2024 End: 01-05-2025 take 1 tablet by mouth once daily at bedtime QUEtiapine (SEROQUEL) 25 mg tablet Take 1 tablet by mouth daily at bedtime. 30 tablet 1 11/09/2024 01/05/2025 Discontinued 60 actuat tiotropium 0.0025 mg/actuat inhalation spray (20 sources) Anticholinergic Start: 01-06-2020 End: 02-25-2023 take 2.5 ug by inhalation once daily Tiotropium [place] (Spiriva Respimat) 2.5 mcg/actuation mist Discontinued 2 NMA INHALATION daily 3 December 06, 2021 1:31pm March 17, 2022 11:10pm administer at approximately the same time(s) each day Start: 01-06-2020 End: 02-25-2023 take 1 puff(s) by inhalation once daily Tiotropium [place] (Spiriva Respimat) 2.5 mcg/actuation mist Discontinued 2 PUFF INHALATION daily December 06, 2021 1:31pm March 17, 2022 11:10pm administer at approximately the same time(s) each day Start: 10-12-2019 End: 01-06-2020 take 2.5 ug by inhalation once daily Tiotropium [place] (Spiriva Respimat) 2.5 mcg/actuation mist Discontinued 2 NMA INHALATION daily 3 October 12, 2019 11:25am January 06, 2020 1:01pm administer at approximately the same time(s) each day Start: 10-12-2019 End: 01-06-2020 take 2.5 ug by inhalation once daily Tiotropium [place] (Spiriva Respimat) 2.5 mcg/actuation mist Discontinued 2 NMA INHALATION daily October 12, 2019 11:25am January 06, 2020 1:01pm administer at approximately the same time(s) each day Start: 10-12-2019 End: 01-06-2020 take 1 puff(s) by inhalation once daily Tiotropium [place] (Spiriva Respimat) 2.5 mcg/actuation mist Discontinued 2 PUFF INHALATION daily October 12, 2019 11:25am January 06, 2020 1:01pm administer at approximately the same time(s) each day Start: 09-21-2019 End: 10-12-2019 take 2.5 ug by inhalation once daily Tiotropium [place] (Spiriva Respimat) 2.5 mcg/actuation mist Discontinued 2 NMA INHALATION daily 3 September 21, 2019 1:27pm October 12, 2019 11:26am administer at approximately the same time(s) each day Start: 09-21-2019 End: 10-12-2019 take 2.5 ug by inhalation once daily Tiotropium [place] (Spiriva Respimat) 2.5 mcg/actuation mist Discontinued 2 NMA INHALATION daily September 21, 2019 1:27pm October 12, 2019 11:26am administer at approximately the same time(s) each day Start: 09-21-2019 End: 10-12-2019 take 1 puff(s) by inhalation once daily Tiotropium [place] (Spiriva Respimat) 2.5 mcg/actuation mist Discontinued 2 PUFF INHALATION daily September 21, 2019 1:27pm October 12, 2019 11:26am administer at approximately the same time(s) each day Start: 09-14-2019 End: 09-21-2019 take 2.5 ug by inhalation once daily Tiotropium [place] (Spiriva Respimat) 2.5 mcg/actuation mist Discontinued 2 NMA INHALATION daily 09 07September 14, 2019 4:34pm September 21, 2019 1:27pm administer at approximately the same time(s) each day Start: 09-14-2019 End: 09-21-2019 take 2.5 ug by inhalation once daily Tiotropium [place] (Spiriva Respimat) 2.5 mcg/actuation mist Discontinued 2 NMA INHALATION daily September 14, 2019 4:34pm September 21, 2019 1:27pm administer at approximately the same time(s) each day Start: 09-14-2019 End: 09-21-2019 take 1 puff(s) by inhalation once daily Tiotropium [place] (Spiriva Respimat) 2.5 mcg/actuation mist Discontinued 2 PUFF INHALATION daily September 14, 2019 4:34pm September 21, 2019 1:27pm administer at approximately the same time(s) each day Start: 09-14-2019 End: 09-14-2019 take 2.5 ug by inhalation once daily Tiotropium [place] (Spiriva Respimat) 2.5 mcg/actuation mist Discontinued 2 NMA INHALATION daily 09 07September 14, 2019 4:32pm September 14, 2019 4:34pm administer at approximately the same time(s) each day Start: 09-14-2019 End: 09-14-2019 take 2.5 ug by inhalation once daily Tiotropium [place] (Spiriva Respimat) 2.5 mcg/actuation mist Discontinued 2 NMA INHALATION daily September 14, 2019 4:32pm September 14, 2019 4:34pm administer at approximately the same time(s) each day Start: 09-14-2019 End: 09-14-2019 take 1 puff(s) by inhalation once daily Tiotropium [place] (Spiriva Respimat) 2.5 mcg/actuation mist Discontinued 2 PUFF INHALATION daily September 14, 2019 4:32pm September 14, 2019 4:34pm administer at approximately the same time(s) each day Start: 02-04-2019 End: 09-14-2019 take 2.5 ug by inhalation once daily Tiotropium [place] (Spiriva Respimat) 2.5 mcg/actuation mist Discontinued 2 NMA INHALATION daily 09 07February 04, 2019 12:06pm September 14, 2019 4:32pm administer at approximately the same time(s) each day Start: 02-04-2019 End: 09-14-2019 take 2.5 ug by inhalation once daily Tiotropium [place] (Spiriva Respimat) 2.5 mcg/actuation mist Discontinued 2 NMA INHALATION daily February 04, 2019 12:06pm September 14, 2019 4:32pm administer at approximately the same time(s) each day Start: 02-04-2019 End: 09-14-2019 take 1 puff(s) by inhalation once daily Tiotropium [place] (Spiriva Respimat) 2.5 mcg/actuation mist Discontinued 2 PUFF INHALATION daily February 04, 2019 12:06pm September 14, 2019 4:32pm administer at approximately the same time(s) each day Start: 02-04-2019 End: 02-04-2019 take 2.5 ug by inhalation once daily Tiotropium [place] (Spiriva Respimat) 2.5 mcg/actuation mist Discontinued 2 NMA INHALATION daily 09 07February 04, 2019 12:05pm February 04, 2019 12:07pm administer at approximately the same time(s) each day Start: 02-04-2019 End: 02-04-2019 take 2.5 ug by inhalation once daily Tiotropium [place] (Spiriva Respimat) 2.5 mcg/actuation mist Discontinued 2 NMA INHALATION daily February 04, 2019 12:05pm February 04, 2019 12:07pm administer at approximately the same time(s) each day Start: 02-04-2019 End: 02-04-2019 take 1 puff(s) by inhalation once daily Tiotropium [place] (Spiriva Respimat) 2.5 mcg/actuation mist Discontinued 2 PUFF INHALATION daily February 04, 2019 12:05pm February 04, 2019 12:07pm administer at approximately the same time(s) each day Start: 12-22-2018 End: 10-01-2023 SPIRIVA RESPIMAT 2.5 mcg/act uation inhaler 12/22/2018 10/01/2023 Discontinued Start: 12-22-2018 End: 02-04-2019 take 1 puff(s) by inhalation once daily Tiotropium [place] (Spiriva Respimat) 2.5 mcg/actuation mist Discontinued 2 PUFF INHALATION daily December 22, 2018 10:48am February 04, 2019 12:05pm administer at approximately the same time(s) each day Start: 12-22-2018 End: 02-04-2019 take 2.5 ug by inhalation once daily Tiotropium [place] (Spiriva Respimat) 2.5 mcg/actuation mist Discontinued 2 NMA INHALATION daily 09 07December 22, 2018 12:00am February 04, 2019 12:05pm administer at approximately the same time(s) each day Start: 12-22-2018 End: 02-04-2019 take 2.5 ug by inhalation once daily Tiotropium [place] (Spiriva Respimat) 2.5 mcg/actuation mist Discontinued 2 NMA INHALATION daily December 22, 2018 12:00am February 04, 2019 12:05pm administer at approximately the same time(s) each day Start: 12-22-2018 End: 02-04-2019 take 1 puff(s) by inhalation once daily Tiotropium [place] (Spiriva Respimat) 2.5 mcg/actuation mist Discontinued 2 [...] Comment on above: Take 1 capsule by [facility] once daily. triamcinolone acetonide 40 mg/ml [...] device Discontinued 1 NMA INHALATION daily 3 3 March 25, 2018 12:00am March 31, 2018 1:35pm valACYclovir 1000 mg oral tablet (17 sources) Herpesvirus Nucleoside Analog DNA Polymerase Inhibitor, [...] 09, 2016 12:00am April 16, 2022 9:10am infection Vitamin I99-Obuzh Acid (5 sources) Start: 03-17-2022 End: 02-25-2023 take 1 tablet by mouth once daily Vitamin W87-Snhcq Acid Discontinued 1 TABLET PO DAILY March 17, 2022 12:00am February 25, 2023 9:30am Start: 03-17-2022 take 1 tablet by [facility] once daily Vitamin W82-Xsbgy Acid Active 1 TABLET PO DAILY March 17, 2022 12:00am Vitamin H64-Mvwyf Acid 1-0.8 mg Tablet (9 sources) Start: 03-17-2022 End: 02-25-2023 Vitamin M80-Gztud Acid 1-0.8 mg Tablet Discontinued 1 {tbl} PO DAILY March 17, 2022 12:00am February 25, 2023 9:30am supplement Start: 03-17-2022 End: 02-25-2023 Vitamin Z94-Hzlvn Acid 1-0.8 mg Tablet Discontinued 1 {tbl} PO DAILY March 17, 2022 12:00am February 25, 2023 9:30am Problems Active Problems Problem Classification Problem Date Documented Da te Episodic/Chronic Abdominal pain (20 sources) Abdominal pain; Translations: [Unspecified abdominal pain] Episodic Alcohol-related disorders (20 sources) Alcohol abuse; Translations: [Alcohol abuse, uncomplicated] 06-27-2018 Chronic Anxiety disorders (20 sources) Chronic anxiety; Translations: [Anxiety disorder, unspecified] Onset: 8 01-27-2021 Chronic Aortic; peripheral; and visceral artery aneurysms (20 sources) Ectasia of thoracic aorta; Translations: [Thoracic aortic ectasia] Onset: 3 12-04-2022 Chronic Asthma (18 sources) Asthma-chronic obstructive pulmonary disease overlap syndrome; [...] Chronic Chronic obstructive pulmonary disease and bronchiectasis (2 sources) Bronchitis; Translations: [Bronchitis, not specified as acute or chronic] Onset: 5 06-08-2023 Episodic Diseases of white blood cells (2 sources) Leukocytosis; Translations: [Elevated white blood cell count, unspecified] Chronic E Codes: Fall (6 sources) Fall; Translations: [Unspecified fall, initial encounter] 03-18-2024 Episodic Esophageal disorders (20 sources) Obstruction of esophagus; Translations: [Esophageal obstruction] Onset: 3 Chronic Esophageal disorders (12 sources) Esophagitis; Translations: [Esophagitis] Episodic Essential hypertension (20 sources) Benign essential hypertension; [...] sources) Psychophysiologic insomnia; Translations: [Psychophysiologic insomnia] Onset: 1 Chronic Mood disorders (20 sources) Recurrent manic episodes, moderate; Translations: [Other bipolar disorder] Onset: 8 01-27-2021 Chronic Nausea and vomiting (20 sources) Nausea; Translations: [Nausea] Episodic Neoplasms of unspecified nature or uncertain behavior (2 sources) Thrombocytosis; Translations: [Thrombocytosis] Episodic Nervous system congenital anomalies (20 sources) Chiari malformation; 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] Onset: 5 08-28-2021 Chronic Nonspecific chest pain (20 sources) Tight chest; Translations: [Other chest pain] Onset: 4 Resolved: 4 Episodic Osteoporosis (20 sources) Osteoporosis; Translations: [Age-related osteoporosis without current pathological fracture] Onset: 5 01-27-2021 Chronic Other aftercare (20 sources) Patient encounter status; Translations: [Other custodial (current) drug therapy] Onset: 1 01-27-2021 Episodic Other bone disease and musculoskeletal deformities (2 [...] digestive system] 06-04-2023 Episodic Other gastrointestinal disorders (20 sources) Dysphagia; Translations: [Dysphagia, unspecified] Onset: 5 12-17-2024 Episodic Other gastrointestinal disorders (2 sources) Dysphagia, unspecified; Translations: [Dysphagia, unspecified] Onset: 5 [...] injuries and conditions due to external causes (10 sources) Obstruction of esophagus; Translations: [Food in esophagus causing other injury, initial encounter] 06-10-2023 Episodic Other injuries and conditions due to external causes (2 sources) Injury of toe of right foot; Translations: [Unspecified injury of right foot, initial encounter] 01-05-2025 Episodic Other injuries and conditions due to external causes (2 sources) Injury of right wrist; Translations: [Unspecified injury of right wrist, hand and finger(s), initial encounter] 05-16-2025 Episodic Other injuries and conditions due to external causes (1 source) Injury, unspecified, initial encounter; Translations: [Trauma] Onset: 5 Episodic Other injuries and conditions due to external causes (1 source) Unspecified injury of right wrist, hand and finger(s), initial encounter; Translations: [Injury of right wrist, initial encounter] Onset: 5 Episodic Other lower respiratory disease (16 sources) Dyspnea on exertion; Translations: [Dyspnea, unspecified] 06-27-2018 Episodic Other lower respiratory disease (20 sources) Dyspnea; Translations: [Shortness of breath] Onset: 4 Resolved: 4 Episodic Other lower respiratory disease (20 sources) Lung mass; Translations: [Other nonspecific abnormal finding of lung field] Onset: 2 Resolved: 0 06-27-2018 Episodic Other lower respiratory disease (1 source) Cough; Translations: [Cough] Episodic Other lower respiratory disease (13 sources) Nodule of lung; Translations: [Solitary pulmonary [...] Cough; Translations: [Acute cough] 07-31-2024 Episodic Other lower respiratory disease (10 sources) Cough after eating; Translations: [Cough after eating] 04-20-2025 Episodic Other nervous system disorders (16 sources) Peripheral nerve disease ; Translations: [Polyneuropathy, unspecified] 06-27-2018 Chronic Other nervous system disorders (16 sources) Chronic pain syndrome; Translations: [Chronic pain syndrome] 06-27-2018 Chronic Other nervous system disorders (20 sources) Chronic low back pain; Translations: [Other [...] in joint, shoulder region] 10-15-2023 Episodic Other non-traumatic joint disorders (5 sources) Pain in left shoulder; Translations: [Pain in joint, shoulder region] 03-18-2024 Episodic Other non-traumatic joint disorders (1 source) Pain in right wrist; Translations: [Right wrist pain] Onset: 5 Episodic Other nutritional; endocrine; and metabolic disorders (1 source) Hypervitaminosis D; Translations: [Hypervitaminosis D] Chronic Other nutritional; endocrine; and metabolic disorders (3 sources) Weight loss; Translations: [Abnormal weight loss] Episodic Other nutritional; endocrine; and metabolic disorders (1 source) Unintentional weight loss; Translations: [Abnormal weight loss] Episodic Other skin disorders (20 sources) Generalized hyperhidrosis; Translations: [Generalized hyperhidrosis] Onset: 6 01-27-2021 Episodic Other skin disorders (1 source) Trachyonychia; Translations: [Nail dystrophy] Episodic Other skin disorders (1 source) Localized swelling, mass and lump, right upper limb; Translations: [Localized superficial swelling, mass, or lump] 06-11-2023 Episodic Other upper respiratory infections (18 sources) Posterior rhinorrhea; Translations: [Postnasal drip] 12-22-2018 Episodic Pneumonia (except that caused by tuberculosis or sexually transmitted disease) (1 source) Bacterial pneumonia; Translations: [Unspecified bacterial pneumonia] 07-31-2024 Episodic Poisoning by other medications and drugs (14 sources) Poisoning by vitamin D; Translations: [Poisoning by vitamins, accidental (unintentional), initial encounter] 02-25-2023 Episodic Residual codes; unclassified (16 sources) Finding related to sleep; Translations: [Sleep apnea, unspecified] 06-27-2018 Chronic Residual codes; unclassified (1 source) Pain; Translations: [Pain, unspecified] 12-18-2022 Episodic Residual codes; unclassified (17 sources) Family history of cancer of colon; Translations: [Family history of malignant neoplasm of digestive organs] 12-17-2024 Episodic Residual codes; unclassified (2 sources) Family history of malignant neoplasm of digestive organs; Translations: [Family history of malignant neoplasm of digestive organs] Onset: Episodic Spondylosis; intervertebral disc disorders; other back problems (20 sources) Lumbar spondylosis; Translations: [Spondylosis without myelopathy or radiculopathy, lumbar region] Onset: 4 01-27-2021 Chronic Spondylosis; intervertebral disc disorders; other back problems (20 sources) Spinal stenosis of lumbar region; Translations: [Spinal stenosis, lumbar region without neurogenic claudication] Onset: 8 Resolved: 0 01-27-2021 Episodic Substance-related disorders (20 sources) Cigarette smoker ; Translations: [Nicotine dependence, cigarettes, uncomplicated] Onset: 5 Chronic Comment on above: [id number] smoking history quit completely in 2010, repeat LDCT December 2024 Substance-related disorders (12 sources) Finding related to substance use; Translations: [Cannabis use, unspecified, uncomplicated] 02-21-2023 Episodic Thyroid disorders (20 sources) Multinodular goiter; Translations: [Nontoxic multinodular goiter] Onset: 1 01-27-2021 Chronic Unclassified (7 sources) Chiari malformation; Translations: [Chiari malformation] 06-27-2018 Unclassified (2 sources) Cough after eating Unclassified (4 sources) K20.90 - Esophagitis, unspecified without bleeding,R13.10 - Dysphagia, unspecified,R05.8 - Other specified cough Unclassified (2 sources) Esophagitis, unspecified without bleeding; Translations: [Esophagitis, unspecified without bleeding] Onset: 5 Unclassified (2 sources) Other specified cough; Translations: [Other specified cough] Onset: 5 Unclassified (1 source) Lumbar back pain; Translations: [Lumbar back pain] Onset: 5 Unclassified (1 source) Heavy alcohol use; Translations: [Heavy alcohol use] Onset: 1 Unclassified (1 source) Acute cough; Translations: [Acute cough] Onset: 4 Urinary tract infections (20 sources) Chronic interstitial cystitis; Translations: [Interstitial cystitis (chronic) without hematuria] Onset: 6 01-27-2021 Chronic Urinary tract infections (1 source) Acute cystitis; Translations: [Acute cystitis without hematuria] 06-05-2024 Episodic Viral infection (20 sources) Anogenital herpesviral infection; Translations: [Anogenital herpesviral infection, unspecified] Onset: 6 Resolved: 0 06-27-2018 Chronic Past or Other Problems Problem Classification Problem [...] cause] Onset: 02-05-2008 Resolved: 12-07-2015 12-07-2015 Episodic Coagulation and hemorrhagic disorders (2 sources) Easy bruising; Translations: [Spontaneous ecchymoses] Onset: 03-15-2025 03-15-2025 Episodic Diabetes mellitus without complication (20 sources) Hyperglycemia; Translations: [Hyperglycemia, unspecified] Onset: 01-27-2021 01-27-2021 Episodic Other aftercare (1 source) Other custodial (current) drug therapy; Translations: [Medication management] Onset: 01-27-2021 Episodic Other circulatory disease (1 source) Other specified symptoms and signs involving the circulatory and respiratory systems; Translations: [Choking in adult] Onset: 10-01-2024 Episodic Other PLATING [employer]EMAN infection and poliomyelitis (20 sources) Epidural abscess; [...] disease (COVID-19)] Onset: 01-27-2021 01-27-2021 Episodic Other injuries and conditions due to external causes (1 source) Unspecified injury of right foot, initial encounter; Translations: [Injury of right toe, initial encounter] Onset: 01-05-2025 Episodic Other injuries and conditions due to external causes (1 source) Unspecified injury of left foot, initial encounter; Translations: [Injury of left toe, initial encounter] Onset: 01-05-2025 Episodic Other lower respiratory disease (20 sources) Multiple nodules of lung; Translations: [Other nonspecific abnormal finding of lung field] Onset: 05-30-2021 05-30-2021 Episodic Other nervous system disorders (20 sources) [...] 03-18-2017 03-18-2017 Episodic Other non-traumatic joint disorders (20 sources) [...] systems and tissues] Onset: 02-01-2021 02-01-2021 Episodic Residual codes; unclassified (20 sources) Insomnia; Translations: [Insomnia, unspecified] Onset: 05-20-2006 01-27-2021 Episodic Residual codes; unclassified (20 sources) Heavy drinker ; Translations: [Other specified health status] Onset: 01-14-2013 01-27-2021 Episodic Residual codes; unclassified (20 sources) Active living will ; Translations: [Other specified health status] Onset: 09-27-2022 09-27-2022 Episodic Screening and history of mental health and substance abuse codes (20 sources) Ex-smoker; Translations: [Personal history of nicotine dependence] Onset: 01-27-2021 01-27-2021 Episodic Unclassified (2 sources) Injury of toe of right foot 01-05-2025 Unclassified (2 sources) Injury of right wrist 05-16-2025 Viral infection (20 sources) Herpes simplex; Translations: [Herpesviral infection, unspecified] Onset: 01-27-2021 01-27-2021 Episodic Results Test Name Value Interpretation Reference Range Facility CNOVon 07-06-2025 CNOV Office Visit (FAMPWS ) DIANAASHLYNDIONY SIMS ([id number]) 1955 F Date Time Provider Department 07/06/25 9:40 AM ALEX BROWN During your visit today, we recorded the following information about you: Pulse Blood pressure Weight 99/minute 128/80 40 kg Alex Brown APRN.[facility] 07/06/2025 9:38 AM Signed Chief Complaint Patient presents with: Follow Up: Right wrist pain since fall 05/15 HPI Diony Ramirez is a 70 year old female who presents here today for Above Complaints.. Patient presents for follow up for right wrist pain. Was seen 05/27 for right wrist pain and trauma, xray negative. Reports continued pain in wrist with movement, has been wearing wrist brace as directed and taking celebrex. Also reports continued insomnia despite being on trazodone and seroquel as magnesium and melatonin. Past medical history, appointments, medications, allergies reviewed. [...] 2D ECHO (EXEP) 05/23/2021 EF=65%, 1+TI. COLONOSCOPY N/A 03/31/2025 [facility] - Dr. Gill COLONOSCOPY FLX DX W/COLLJ SPEC WHEN PFRMD 08/19/2006 Repeat in COLONOSCOPY FLX DX W/COLLJ SPEC WHEN PFRMD 06/27/2016 Colonoscopy CRANIOPLASTY SKULL DEF/REPAIR/ BRAIN 09/14/2014 See scanned documents - status post EGD W/O [facility] SPEC VARICIES INJ N/A 03/31/2025 [facility] - Dr. Gill ESOPHAGOGASTRODUODENO SCOPY TRANSORAL DIAGNOSTIC 06/27/2016 EGD ESOPHAGOGASTRODUODENO SCOPY TRANSORAL DIAGNOSTIC 06/30/2018 EGD IANDD ABSCESS CMPLX/MULT [...] on File Prior to Visit Medication Sig celecoxib (CELEBREX) 100 mg capsule Take 1 capsule by mouth two times a day. cyclobenzaprine (FLEXERIL) 10 mg tablet Take 1 tablet by mouth three times a day as needed for muscle spasm. omeprazole (PRILOSEC) 40 mg capsule Take 1 capsule by mouth (more content not included)... Normal [facility] MARCIANO SCREENING W TOMOon 07-05 MARCIANO SCREENING W TENISHA * * *Final Report* * * DATE OF EXAM: Jul 05 2025 11:11AM [facility] 0582 - MARCIANO SCREENING W TENISHA / PROCEDURE REASON: Encounter for screening mammogram for breast cancer * * * * Physician Interpretation * * * * RESULT: [facility] [address] [address] [place] [address] #[id number] - MARCIANO SCREENING W TENISHA HISTORY: 70 year-old patient presents for screening. Patient is asymptomatic in both breasts. Patient states no personal history of breast cancer. COMPARISON STUDIES: The present examination has been compared to prior imaging studies dated 07/22/2020 (mammogram), 07/25/2021 (mammogram), 07/31/2022 (mammogram), 06/11/2023 (mammogram) and 07/01/2024 (mammogram). MAMMOGRAM TECHNIQUE: The study was acquired using full field digital technology and interpreted from soft copy. Digital Breast Tomosynthesis (DBT) images were obtained and used to assist in the interpretation of this examination. MAMMOGRAM FINDINGS: There are scattered areas of fibroglandular density. No suspicious mass, calcifications, or other abnormality is seen in either breast. IMPRESSION: There is no mammographic evidence of malignancy in either breast. Routine screening mammogram is recommended. Annual mammogram will be due in 1 year. BI-RADS Category 1: Negative RISK: Based on the Tyrer-Cuzick (TC) risk assessment model, this patient has a 1.6% lifetime risk of developing breast cancer, meaning [...] Radiologist: John Pérez M.D. Electronically signed on: 07/05/2025 Curator Of Manuscripts: KYLAH Transcribe Date/Time: Jul 05 2025 11:00A Dictated by: JOHN PÉREZ MD This examination was interpreted and the report reviewed and electronically signed by: JOHN PÉREZ MD on Jul 05 2025 2:15PM EST [id number] N Normal [facility] 06-10-2025 JOSSE Telephone (4CQ) DIONY RAMIREZ ([id number]) 1955 F Date Time Provider Department 06/10/25 RITO CAMP 4CQ During your visit today, we recorded the following information about you: Harshal Isael Joana 06/10/2025 4:15 PM Signed Patient calling requesting mammography order to be placed. Due after 07/01/2025 Rito Camp MD 06/11/2025 7:51 AM Signed Mammogram order placed. Kasey Becker LPN 06/11/2025 9:50 AM Signed Phoned patient aware order in place and gave her phone number to schedule at her leisure [phone] as requested. Allergies As of Date: 06/10/2025 Noted Allergy Reaction FISH 06/23/2005 16 - Unknown HORSE/EQUINE CONTAINING PRODUCTS 08/30/2023 16 - Unknown LISINOPRIL 12/07/2015 3 - Cough SHELLFISH DERIVED 08/30/2023 16 - Unknown Date Reviewed: 05/27/2025 Reviewed by: Rito Camp MD - Fully Assessed Reason for Visit: Orders [681] Primary Visit Diagnosis:Encounter for screening mammogram for breast cancer [Z12.31] Order(s):[facility] SCREENING [[id number]] Order #: [id number] FUTURE Prescriptions as of 06/11/2025 - celecoxib (CELEBREX) 100 mg capsule Take 1 capsule by mouth two times a day. - cyclobenzaprine (FLEXERIL) 10 mg tablet Take 1 tablet by mouth three times a day as needed for muscle spasm. - omeprazole (PRILOSEC) 40 mg capsule Take 1 capsule by mouth once daily. - QUEtiapine (SEROQUEL) 50 mg tablet Take 1 tablet by mouth daily at bedtime. - traZODone (DESYREL) 150 mg tablet Take 1 tablet by mouth daily at bedtime. - alendronate (FOSAMAX) 70 mg tablet Take 1 tablet by mouth one time a week. In am with glass of water, on a empty stomach, nothing by mouth or lying down for 30 minutes - acyclovir (ZOVIRAX) 400 mg tablet Take 1 tablet by mouth two times a day. - amLODIPine (NORVASC) 2.5 mg tablet Take 1 tablet by mouth once daily. - Dextromethorphan-guai FENesin (ROBITUSSIN COUGH-CHEST ESTEFANÍA DM) 5-100 mg/5 mL liqd Take 10 mL by mouth every 4 hours as needed. - FOLIC ACID ORAL Take [...] times daily. Problem List As Of Date 06/10/2025 Noted Resolved Chronic interstitial cystitis [N30.10] 04/08/2006 [...] Abnormal toxicological findings [R89.2] 02/01/2021 Lung nodules [R91.8 (more content not included)... [facility] L/S Spine Min 4 Viewson 10-0 7-2025 L/S Spine Min 4 Views [facility] Imaging Services [address] [place] [address] L/S Spine Min 4 Views MR#: [id number] Acct: [id number] Name: JENA RAMIREZ Rep #: [id number] : 1955 F 70 From: Velia Green MD PCP: Dr. Rito Camp MD Status: DEP AMB Study: L/S Spine Min 4 Views Date of Exam: 06/08/25 Exam# [id number] Ordering Dr: Lanette Carter EXAM: XR Lumbosacral Spine Flexion/Extension Only, 2 or 3 Views CLINICAL INDICATION: CHRONIC BACK PAIN TECHNIQUE: Lateral flexion/extension views of the lumbar spine and sacrum. COMPARISON: No relevant prior studies available. FINDINGS: VERTEBRAE: Mild levoconvex curvature of the mid lumbar spine. Mild superior endplate compression conformity of L2 vertebral body, likely chronic. Normal sagittal alignment. No acute fracture or significant dynamic instability. SACRUM/COCCYX: Unremarkable as visualized. No acute fracture. DISC SPACES: No acute findings. No significant narrowing. SOFT TISSUES: Unremarkable. RAD/L/S Spine Min 4 Views IMPRESSION: 1. No acute fracture or significant dynamic instability. 2. If symptoms persist, further evaluation with MRI is recommended. 3. Mild superior endplate compression conformity of L2 vertebral body, likely chronic. Reading Location: [id number] CC: SUNNY De La Garza; Dr. Rito Camp MD Curator Of Manuscripts: Signed [facility] Orthopedic Visit Reporton Orthopedic Visit Report [facility] [address] [place] [address] OFFICE VISIT Date of Service: 06/08/25 MR#: [id number] Acct: [id number] Name: JENA RAMIREZ HUDSON Rep #: [id number] : 1955 Provider: SUNNY De La Garza Age/Sex: 70/F Location: [facility] Status: Signed Intake Vital Signs 04/20/25 10:26 06/08/25 10:39 Height 4 ft 9 in 4 ft 9 in Weight: 92 lb 4 oz 89 lb 8 oz BMI 19.9 19.3 Intake Visit Reasons: LUMBAR SPINE Accompanied by: Self Is patient in pain?: Yes Pain scale (1-10): 7 Allergies Fish Containing Products Allergy (Severe, Verified 06/08/25 10:40) Angioedema shellfish derived Allergy (Severe, Verified 06/08/25 10:40) Angioedema Horse/Equine Containing Products Allergy (Unknown, Verified 06/08/25 10:40) NEEDS FOLLOW-UP lisinopril Allergy (Unknown, Verified 06/08/25 10:40) Unknown Medications ???Medication ???Instructions ???Recorded ???Confirmed ???Type melatonin 10 mg sublingual tablet 10 mg PO QHS sleeping pill 06/08/25 History ascorbic acid (vitamin C) 500 mg 1,000 mg PO DAILY supplement 06/2606/08/25 History tablet,extended release biotin 5,000 mcg sublingual tablet 5,000 mcg sublingual DAILY 02/2306/08/25 History supplement cyanocobalamin (vitamin B-12) 2,500 mcg PO DAILY supplement 04/0306/08/25 History 2,500 mcg tablet acyclovir 400 mg tablet 400 mg PO BID female issue 2 06/08/25 History calcium carbonate (Calcium 600) 600 mg PO DAILY bones 06/01/2303/26 History amlodipine 2.5 mg tablet (Norvasc) 2.5 mg PO DAILY Blood pressure 0 01/01/24 06/08/25 History trazodone 150 mg tablet 150 mg PO QHS 07/21/24 06/08/25 Hi story montelukast 10 mg tablet 10 mg PO QPM breathing #90 tabs 06/08/25 Rx omeprazole 40 mg capsule,delayed 40 mg PO DAILY acid reflux #90 cap s 12/17/24 06/08/25 Rx release albuterol sulfate 90 mcg/actuation 2 puff inhalation Q6H PRN 06/08/25 Rx aerosol inhaler (ProAir HFA) shortness of breath or wheezing #3 ea budesonide-formoterol HFA 160 2 inh inhalation BID 03/25/25 10/03/26 History mcg-4.5 mcg/actuation aerosol inhaler (Breyna) folic acid 400 mcg tablet 0.4 mg PO QDAY 06/08/25 06/08/25 H istory hydroxyzine HCl 10 mg tablet 10 mg PO QHS 06/08/25 06/08/25 His tory Have you fallen in the past year?: Yes PFSH Medical History Alcohol use Easy bruising Gastric reflux History [...] Social History household members: none Smoking Status: Current every day smoker tobacco type: cigarettes second hand exposure: No alcohol intake: current alcohol intake frequency: 3 or more drinks per day Alcohol type: beer details: Drinks 5-6 beers daily, nearly no breaks in her days of intake. substance use type: does not use caffeine: Yes what type of physical activity do you participate in: walking and other details: rosario ARBOLEDA LUMBAR SPINE Details: This documentation accurately reflects the service provided and the decisions made by me, SUNNY De La Garza 06/08/25 1036. Part of today???s visit was documented by Noa CHOW, acting as scribe. JENA RAMIREZ is a 70 year old F here today for low back pain that she has had for many years. in 2012 she did have surgery on her lower back for a removal of an abscess. She did bring a disc today with a recent MRI. Her pain is right along the belt line of her lower back and gets pain that radiates into her buttocks and posterior thigh on the left side bilateral (more content not included)... [facility] CNOVon 05-27-2025 CNOV Office Visit (FAMPWS ) DIONY RAMIREZ ([id number]) 1955 F Date Time Provider Department 05/27/25 8:20 AM RITO CAMP During your visit today, we recorded the following information about you: Pulse Respiration Blood pressure Weight 96/minute 18/minute 128/86 39.7 kg Rito Camp MD 05/27/2025 9:09 PM Signed Chief Complaint Patient presents with: Wrist Pain: Fell down stairs HPI Diony Ramirez is a 70 year old female who presents here today for wrist pain. Patient here today for evaluation of R wrist pain after a fall going down steps. Was seen in on 05/16/25 and had an XR completed due to increased risk of fractures. Patient continues to have a lot of pain and has significant pain. Has used several topical pain creams with no improvement, Ibuprofen 800 mg, wrist compression sleeve, and icing twice daily. Pain rated a 9/10, constant and described as a sharp, stabbing and aching pain. Patient is right hand dominant. Patient follows with Pain Mgmt, Dr. Montilla yesterday and he recommended she follow up with PCP to be re-evaluated and possibly have XR completed again. Diony Ramirez is a 70-year-old female presenting with right wrist pain following a fall and chest congestion. Diony reports a fall that occurred on Saturday while descending stairs. She believed she was on the bottom step but was not, resulting in a fall to the right side. She landed on her right wrist and hip. She has a history of sciatica and notes that the fall exacerbated her sciatic pain, for which she received an injection from her paint stripper, Dr. Epstein, yesterday. She initially sought evaluation at urgent care, where an x-ray was performed. She was initially told there might be a compression fracture, but later informed that the radiologist's report indicated no fracture. Despite this, Dr. Epstein suggested a repeat x-ray due to persistent pain. Diony describes the wrist pain as severe, stating it feels like somebody took my hand and put it on a table and hit it with a hammer. The pain is constant and has not improved since the fall. She notes that [id number] medications, including 800 mg of ibuprofen, have been ineffective. She has been using a wrist brace and applying ice packs twice daily, but reports no significant relief. She also tried various topical treatments, including lidocaine, Nevive, and [place], without improvement. The pain is affecting her sleep, which was already poor. She denies numbness in the fingers and notes that the initial swelling has subsided. She denies any visible bruising. In addition to wrist pain, Diony reports chest congestion that began on . She describes a productive cough with yellow sputum and occasional raspy breath sounds. She denies wheezing, increased dyspnea, hemoptysis, fevers, or chills. She has a history of COPD and asthma but notes that her current symptoms have not exacerbated these conditions. She was exposed to a sick contact prior to the onset of symptoms. She is a former smoker, having quit a long time ago. She started taking Mucinex but discontinued it. Past medical history, appointments, medications, allergies reviewed. [...] 01/2019 Other dysphagia 01/21/2025 Did swallowing exam a (more content not included)... [facility] XR HAND 3V PA/LAT/OBL RTon 0 05-27-2025 XR HAND 3V PA/LAT/OBL RT * * *Final Repo rt* * * DATE OF EXAM: May 27 2025 9:37AM WOX [id number] - XR HAND 3V PA/LAT/OBL RT / PROCEDURE REASON: multiple diagnoses * * * * Physician Interpretation * * * * EXAMINATION: XR WRIST 3V PA/LAT/OBL RT, XR HAND 3V PA/LAT/OBL RT TECHNOLOGIST PROVIDED HISTORY: RIGHT WRIST/HAND PAIN, FELL TWO WEEKS AGO CLINICAL INFORMATION: 70 years old Female with Right wrist pain. Trauma. Pain in the wrist dorsally, radial side and over the distal radial head TECHNIQUE: XR WRIST 3V PA/LAT/OBL RT, XR HAND 3V PA/LAT/OBL RT Laterality: RIGHT Number of different views (projections): 3 views of the RIGHT wrist and 3 views of the RIGHT hand. COMPARISON: Right wrist radiographs 05/16/2025 RESULT: No acute fracture. Slight ulnar positive variance and degenerative subchondral cystic changes ulnar aspect of the lunate suggestive of ulnar impaction syndrome. Severe degenerative change 2nd DIP joint and moderate degenerative change 3rd MCP joint. Mild scattered degenerative changes elsewhere at the interphalangeal joints. No erosions. IMPRESSION: No acute osseous abnormality. Degenerative changes as described. Curator Of Manuscripts: LEONARDO Transcribe Date/Time: May 27 2025 9:45A Dictated by : GARETH ESCAMILLA DO This examination was interpreted and the report reviewed and electronically signed by: GARETH ESCAMILLA DO on May 27 2025 9:51AM EST [id number] Normal [facility] XR WRIST 3V PA/LAT/OBL RTon 05-27-2025 XR WRIST 3V PA/LAT/OBL RT * * *Final Report* * * DATE OF EXAM: May 27 2025 9:37AM WOX [id number] - XR WRIST 3V PA/LAT/OBL RT / PROCEDURE REASON: multiple diagnoses * * * * Physician Interpretation * * * * EXAMINATION: XR WRIST 3V PA/LAT/OBL RT, XR HAND 3V PA/LAT/OBL RT TECHNOLOGIST PROVIDED HISTORY: RIGHT WRIST/HAND PAIN, FELL TWO WEEKS AGO CLINICAL INFORMATION: 70 years old Female with Right wrist pain. Trauma. Pain in the wrist dorsally, radial side and over the distal radial head TECHNIQUE: XR WRIST 3V PA/LAT/OBL RT, XR HAND 3V PA/LAT/OBL RT Laterality: RIGHT Number of different views (projections): 3 views of the RIGHT wrist and 3 views of the RIGHT hand. COMPARISON: Right wrist radiographs 05/16/2025 RESULT: No acute fracture. Slight ulnar positive variance and degenerative subchondral cystic changes ulnar aspect of the lunate suggestive of ulnar impaction syndrome. Severe degenerative change 2nd DIP joint and moderate degenerative change 3rd MCP joint. Mild scattered degenerative changes elsewhere at the interphalangeal joints. No erosions. IMPRESSION: No acute osseous abnormality. Degenerative changes as described. Curator Of Manuscripts: PSCB Transcribe Date/Time: May 27 2025 9:45A Dictated by : GARETH ESCAMILLA DO This examination was interpreted and the report reviewed and electronically signed by: GARETH ESCAMILLA DO on May 27 2025 9:51AM EST [id number] N Normal [facility] MRI LUMBAR SPINE WO IVCONon 05-24-2025 MRI LUMBAR SPINE WO IVCON * * *Final Report* * * DATE OF EXAM: May 24 2025 9:17AM [facility]M [id number] - MRI LUMBAR SPINE WO IVCON / PROCEDURE REASON: multiple diagnoses * * * * Physician Interpretation * * * * EXAMINATION: MRI LUMBAR SPINE WO IVCON CLINICAL HISTORY: Lumbar radiculopathy. Lumbar back pain. Radiculopathy of lumbar region TECHNIQUE: Routine lumbosacral spine MR protocol without gadolinium. MQ: [id number] COMPARISON: CT abdomen and pelvis 01/21/2023 RESULT: Counting reference: Lumbosacral junction. For the purposes of this report, L4-5 is considered the level of the iliac crest and assume there are 5 lumbar-type vertebrae. Anatomic variant: None. Localizer images: Large uterine fundal fibroid approximately 5 cm. Alignment: Levoscoliotic curvature apex left at L3. Bone marrow signal/fracture: Postsurgical changes from laminectomy L3-4 through L5-S1. Type I endplate degenerative signal changes on the left at T10-11 and T11-12. Predominantly type II endplate degenerative signal changes on the right at L2-3 through L4-5, and diffusely at L5-S1. Multilevel endplate irregularity and disc height loss greater along the concave scoliotic margins. No evidence of pathologic marrow infiltration. No evidence of prior fracture. Conus: The conus is within normal limits of signal intensity and morphology. Paraspinal soft tissues: Paraspinal soft tissues are within normal limits. Lower thoracic spine: Endplate and facet hypertrophy result in up to mild-moderate left neural foraminal narrowing at T11-12 on the left. Canal and foramina are otherwise patent. L1-L2: Canal and foramina are patent. L2-L3: Disc bulge, ligamentum flavum and facet hypertrophy result in moderate right and mild left neural foraminal narrowing. No significant canal stenosis. L3-L4: Disc bulge, ligamentum flavum and facet hypertrophy contribute to moderate-severe right and mild left neural foraminal narrowing, and partial subarticular recess effacement greater on the right. Canal is otherwise patent, decompressed by laminectomy. L4-L5: Disc bulge, endplate and facet hypertrophy with moderate-severe bilateral neural foraminal narrowing, and partial subarticular recess effacement bilaterally. Canal is otherwise patent, decompressed by laminectomy. L5-S1: Disc bulge, endplate and facet hypertrophy with moderate left and mild right neural foraminal narrowing. Canal is patent, decompressed by laminectomy. Sacrum and iliac wings: The visualized sacrum and iliac wings are within normal limits. IMPRESSION: Levoscoliosis and multilevel spondylosis as mentioned, without significant spinal canal stenosis. Varying degrees of neural foraminal narrowing, moderate-severe at L3-4 on the right and L4-5 bilaterally. Please see the body of report for additional findings and further discussion. Anatomic Lumbar Variant: None. L4-5 is considered the level of the iliac crest and assume there are 5 lumbar-type vertebrae. Curator Of Manuscripts: PSCB Transcribe Date/Time: May 24 2025 9:26A Dictated by : CHARLIE CRAMER MD This examination was interpreted and the report reviewed and electronically signed by: CHARLIE CRAMER MD on May 24 2025 9:39AM EST [id number] N Normal [facility] CNPKinsey 05-21-2025 CNPN Telephone (RUSWS) DIONY RAMIREZ ([id number]) 1955 F Date Time Provider Department 05/21/25 BRUNILDA ANDRADE During your visit today, we recorded the following information about you: Joana Gilliam 05/21/2025 8:09 AM Signed Patient request rt wrist x-rays from Express care visit on 05/16/25 copied to a disk Allergies As of Date: 05/21/2025 Noted Allergy Reaction FISH 06/23/2005 16 - Unknown HORSE/EQUINE CONTAINING PRODUCTS 08/30/2023 16 - Unknown LISINOPRIL 12/07/2015 3 - Cough SHELLFISH DERIVED 08/30/2023 16 - Unknown Date Reviewed: 05/16/2025 Reviewed by: [place], APPLICATION PACKAGER.GRAVEL SCREENER - Fully Assessed Reason for Visit: disk request [Other] Prescriptions as of 07/10/2025 - celecoxib (CELEBREX) 100 mg capsule Take 1 capsule by mouth two times a day. - cyclobenzaprine (FLEXERIL) 10 mg tablet Take 1 tablet by mouth three times a day as needed for muscle spasm. - omeprazole (PRILOSEC) 40 mg capsule Take 1 capsule by mouth once daily. - QUEtiapine (SEROQUEL) 50 mg tablet Take 1 tablet by mouth daily at bedtime. - traZODone (DESYREL) 150 mg tablet Take 1 tablet by mouth daily at bedtime. - alendronate (FOSAMAX) 70 mg tablet Take 1 tablet by mouth one time a week. In am with glass of water, on a empty stomach, nothing by mouth or lying down for 30 minutes - acyclovir (ZOVIRAX) 400 mg tablet Take 1 tablet by mouth two times a day. - amLODIPine (NORVASC) 2.5 mg tablet Take 1 tablet by mouth once daily. - Dextromethorphan-guai FENesin (ROBITUSSIN COUGH-CHEST ESTEFANÍA DM) 5-100 mg/5 mL liqd Take 10 mL by mouth every 4 hours as needed. - FOLIC ACID ORAL Take [...] times daily. Problem List As Of Date 05/21/2025 Noted Resolved Chronic interstitial cystitis [N30.10] 04/08/2006 [...] discussed with patient [Z71.8*09/27/2022 Ectatic thoracic aorta [I77.810] 12/04/2022 Chronic bilateral low back pain with sciatica [*07/15/2023 Encounter for screening mammogram for breast ca*06/09/2024 Pain in left hip [M25.552] (more content not included)... Normal [facility] DIONY RAMIREZ ([id number]) 1955 F Date Time Provider Department 05/20[facility]25 [facility] During your visit today, we recorded the following information about you: Joana Au RN 05/20/2025 1:37 PM Signed Patient calling and asking Dr. Camp for advise. She states she fell this past Saturday and injured her right wrist. She was evaluated at on 05/16 and had xray completed which showed no acute abnormalities., and that ...symptoms are more consistent with general strains and contusions . Pt was advised to use ibuprofen and/or Tylenol as needed for pain and slowly resume activities as tolerated. Patient states today her right wrist is the same, maybe a little worse. Still painful. Can barely brush her teeth. Using wrist brace and voltaren gel. Pt states tylenol and ibuprofen never helps her pain so she does not take it. She is taking flexeril for her back which she states does nothing for her either. Pt states she questions if something was missed on her wrist xray. Asking if she can see Ortho if needed, to revaluate her right wrist, or other advise. Please call patient back. Rito Camp MD 05/21/2025 7:13 AM Signed Advise patient I would give the conservative care at ;east a week and if still no better come in to seen one of use and we can get it re-x-ray. The wrist is going to hurt for a little while. She should be doing the ibuprofen to help reduce inflammation whether it helps her pain or not and also ice the wrist twice a day for 10-15 min. Melita Le LPN 05/21/2025 11:09 AM Signed Patient notified of results and provider's instructions. Patient verbalizes understanding. Melita Le LPN Allergies As of Date: 05/20/2025 Noted Allergy Reaction FISH 06/23/2005 16 - Unknown HORSE/EQUINE CONTAINING PRODUCTS 08/30/2023 16 - Unknown LISINOPRIL 12/07/2015 3 - Cough SHELLFISH DERIVED 08/30/2023 16 - Unknown Date Reviewed: 05/16/2025 Reviewed by: [place] Shaver, ALAN.GRAVEL SCREENER - Fully Assessed Reason for Visit: Patient Question [9347] Prescriptions as of 05/21/2025 - cyclobenzaprine (FLEXERIL) 10 mg tablet Take 1 tablet by mouth three times a day as needed for muscle spasm. - omeprazole (PRILOSEC) 40 mg capsule Take 1 capsule by mouth once daily. - QUEtiapine (SEROQUEL) 50 mg tablet Take 1 tablet by mouth daily at bedtime. - traZODone (DESYREL) 150 mg tablet Take 1 tablet by mouth daily at bedtime. - alendronate (FOSAMAX) 70 mg tablet Take 1 tablet by mouth one time a week. In am with glass of water, on a empty stomach, nothing by mouth or lying down for 30 minutes - acyclovir (ZOVIRAX) 400 mg tablet Take 1 tablet by mouth two times a day. - amLODIPine (NORVASC) 2.5 mg tablet Take 1 tablet by mouth once daily. - Dextromethorphan-guai FENesin (ROBITUSSIN COUGH-CHEST ESTEFANÍA DM) 5-100 mg/5 mL liqd Take 10 mL by mouth every 4 hours as needed. - FOLIC ACID ORAL Take [...] times daily. Problem List As Of Date 05/20/2025 Noted Resolved Chronic interstitial cystitis [N30.10] 04/08/2006 [...] 02/21/2015 Emphysema of lung (HCC) [J43.9] 03/18/2015 (more content not included)... Normal [facility] CNOVon 05-16-2025 CNOV Office Visit (WOUCA) DIONY RAMIREZ ([id number]) 1955 F Date Time Provider Department 05/16/25 12:15 PM [place] SHAVER WOKARI During your visit today, we recorded the following information about you: Temperature Pulse Respiration Blood pressure 99.1 degrees 94/minute 18/minute 130/80 Weight 40.7 kg Ky Shaver APRN.CNP 05/16/2025 1:11 PM Signed [facility] Subjective Diony Alcantar Dianaashlynsanjeev is a 70 year old female. Patient presents with: right wrist pain: Fell 1/2 hour ago HPI About 30 minutes prior to arrival patient was walking backwards down her basement steps pulling a box of something when she missed the last step and fell landing on her right wrist. She now complains of pain diffusely around the right wrist. Denies any other injuries or health concerns. Denies any loss of consciousness vomiting or vision changes Review of Systems As above Objective BP 130/80 Pulse 94 Temp 37.3 ?C (99.1 ?F) (Tympanic) Resp 18 Wt 40.7 kg (89 lb 11.6 oz) LMP 03/23/2007 SpO2 99% BMI 20.12 kg/m? Physical Exam Vitals and nursing note reviewed. Constitutional: General: She is not in acute distress. Appearance: Normal appearance. She is not ill-appearing. HENT: Head: Normocephalic. Pulmonary: Effort: Pulmonary effort is normal. Musculoskeletal: General: Normal range of motion. Comments: Wrist diffusely tender with palpation. No obvious swelling or deformities noted. No pain into the hand or forearm. Skin: General: Skin is warm. Neurological: General: No focal deficit present. Mental Status: She is alert and oriented to person, place, and time. Psychiatric: Mood and Affect: Mood normal. Behavior: Behavior normal. {ASSESSMENT/PLAN: 1. Injury of right wrist, initial encounter - ICD9: 959.3, ICD10: S69.91XA -X-ray of the right wrist shows no acute abnormalities. Discussed with patient that symptoms are more consistent with general strains and contusions. She will use ibuprofen and/or Tylenol as needed for pain and slowly resume activities as tolerated - XR WRIST GENERAL 3V PA/LAT/OBL RIGHT Ky Shaver APRN.GRAVEL SCREENER Disposition The patient was discharged. Procedures Referring Provider: SELF [200] Allergies As of Date: 05/16/2025 Noted Allergy Reaction FISH 06/23/2005 16 - Unknown HORSE/EQUINE CONTAINING PRODUCTS 08/30/2023 16 - Unknown LISINOPRIL 12/07/2015 3 - Cough SHELLFISH DERIVED 08/30/2023 16 - Unknown Date Reviewed: 05/16/2025 Reviewed by: [place] Shaver APRN.GRAVEL SCREENER - Fully Assessed Reason for Visit: right wrist pain [Other] Cmt: Fell 1/2 hour ago Primary Visit Diagnosis:Injury of right wrist, initial encounter [S69.91XA] Order(s):XR WRIST GENERAL 3V PA/LAT/OBL RIGHT [[id number]] Order #: [id number] FUTURE Prescriptions as of 05/16/2025 - cyclobenzaprine (FLEXERIL) 10 mg tablet Take 1 tablet by mouth three times a day as needed for muscle spasm. - omeprazole (PRILOSEC) 40 mg capsule Take 1 capsule by mouth once daily. - QUEtiapine (SEROQUEL) 50 mg tablet Take 1 tablet by mouth daily at bedtime. - traZODone (DESYREL) 150 mg tablet Take 1 tablet by mouth daily at bedtime. - alendronate (FOSAMAX) 70 mg tablet Take 1 tablet by mouth one time a week. In am with glass of water, on a empty stomach, nothing by mouth or lying down for 30 minutes - acyclovir (ZOVIRAX) 400 mg tablet Take 1 tablet by mouth two times a day. - amLODIPine (NORVASC) 2.5 mg tablet Take 1 tablet by mouth once daily. - Dextromethorphan-guai FENesin (ROBITUSSIN COUGH-CHEST ESTEFANÍA DM) 5-100 mg/5 mL liqd Take 10 mL by mouth every 4 hours as needed. - FOLIC ACID ORAL Take [...] times daily. Problem List As Of Date 05/16/2025 Noted Resolved Chronic interstitial cystitis [N30.10] 04/08/2006 [...] and tendons in shoulder reg*02/26/2009 12/07/2015 Lumbar (more content not included)... Normal [facility] XR WRIST 3V PA/LAT/OBL RTon 05-16-2025 XR WRIST 3V PA/LAT/OBL RT * * *Final Report* * * DATE OF EXAM: May 16 2025 12:24PM WOX [id number] - XR WRIST 3V PA/LAT/OBL RT / PROCEDURE REASON: Injury of right wrist, initial encounter * * * * Physician Interpretation * * * * TITLE: XR WRIST 3V PA/LAT/OBL RT CLINICAL INDICATION: Status post fall with pain TECHNIQUE: 3 view radiographic study of the right wrist COMPARISON: Radiograph dated 12/18/2022 FINDINGS: No acute fracture or dislocation identified. Scattered subchondral cystic change within the carpal bones. Joint spaces preserved. IMPRESSION: No radiographic evidence of acute osseous injury Curator Of Manuscripts: [facility] Transcribe Date/Time: May 16 2025 1:05P Dictated by : KATIE WATERS MD This examination was interpreted and the report reviewed and electronically signed by: KATIE WATERS MD on May 16 2025 1:06PM EST [id number] Normal [facility] XR Wrist - right PA and Late ral and Obliqueon 05-16-2025 IMPRESSION: No radiographic evidence of acute osseous injury Curator Of Manuscripts: [facility] Transcribe Date/Time: May 16 2025 1:05P Dictated by : KATIE WATERS MD This examination was interpreted and the report reviewed and electronically signed by: KATIE WATERS MD on May 16 2025 1:06PM EST DIVISION OF RADIOLOGY * * *Final Report* * * DATE OF EXAM: May 16 2025 12:24PM WOX [id number] - XR WRIST 3V PA/LAT/OBL RT / PROCEDURE REASON: Injury of right wrist, initial encounter * * * * Physician Interpretation * * * * TITLE: XR WRIST 3V PA/LAT/OBL RT CLINICAL INDICATION: Status post fall with pain TECHNIQUE: 3 view radiographic study of the right wrist COMPARISON: Radiograph dated 12/18/2022 FINDINGS: No acute fracture or dislocation identified. Scattered subchondral cystic change within the carpal bones. Joint spaces preserved. DIVISION OF RADIOLOGY Provider, [facility] - 05/16/2025 * * *Final Report* * * DATE OF EXAM: May 16 2025 12:24PM WOX 5271 - XR WRIST 3V PA/LAT/OBL RT / PROCEDURE REASON: Injury of right wrist, initial encounter * * * * Physician Interpretation * * * * TITLE: XR WRIST 3V PA/LAT/OBL RT CLINICAL INDICATION: Status post fall with pain TECHNIQUE: 3 view radiographic study of the right wrist COMPARISON: Radiograph dated 12/18/2022 FINDINGS: No acute fracture or dislocation identified. Scattered subchondral cystic change within the carpal bones. Joint spaces preserved. IMPRESSION IMPRESSION: No radiographic evidence of acute osseous injury Curator Of Manuscripts: LEONARDO Transcribe Date/Time: May 16 2025 1:05P Dictated by : KATIE WATERS MD This examination was interpreted and the report reviewed and electronically signed by: KATIE WATERS MD on May 16 2025 1:06PM [facility] Radiology Study observation (narrative) Carlos nguyen [facility] XR Wrist - right PA and Late ral and ObliqueOrdered By: [facility] Provider on 05-16-2025 [facility] CNOVon 05-14-2025 CNOV Office Visit (SHELBYWS ) DIONY RAMIREZ ([id number]) 1955 F Date Time Provider Department 05/14/25 10:40 AM ALEX BROWN During your visit today, we recorded the following information about you: Pulse Blood pressure Weight 86/minute 153/74 40 kg Alex Brown, ALAN.GRAVEL SCREENER 05/14/2025 10:42 AM Signed Chief Complaint Patient presents with: Follow Up HPI Diony Ramirez is a 70 year old female who presents here today for Above Complaints.. Patient presents for continued sciatic pain. Patient has appt with Dr. Epstein at the end of the month as well as MRI scheduled 05/24. Past medical history, appointments, medications, allergies reviewed. [...] 2D ECHO (EXEP) 05/23/2021 EF=65%, 1+TI. COLONOSCOPY N/A 03/31/2025 [facility] - Dr. Gill COLONOSCOPY FLX DX W/COLLJ SPEC WHEN PFRMD 08/19/2006 Repeat in COLONOSCOPY FLX DX W/COLLJ SPEC WHEN PFRMD 06/27/2016 Colonoscopy CRANIOPLASTY SKULL DEF/REPAIR/ BRAIN 09/14/2014 See scanned documents - status post EGD W/O [facility] SPEC VARICIES INJ N/A 03/31/2025 [facility] Ernie Gill ESOPHAGOGASTRODUODENO SCOPY TRANSORAL DIAGNOSTIC 06/27/2016 EGD ESOPHAGOGASTRODUODENO SCOPY TRANSORAL DIAGNOSTIC 06/30/2018 EGD IANDD ABSCESS CMPLX/MULT [...] Take 1 capsule by mouth once daily. HYDROcodone-Acetamino phen (NORCO) 10-325 mg per tablet Take 1 tablet by mouth every 8 hours as needed. methylPREDNISolone (MEDROL DOSE-PACK) 4 mg Dose-Pack Take by mouth once daily. QUEtiapine (SEROQUEL) 50 mg tablet Take 1 tablet by mouth daily at bedtime. traZODone (DESYREL) 150 mg tablet Take 1 tablet by mouth daily at bedtime. alendronate (FOSAMAX) 70 mg tablet Take 1 tablet by mouth one t (more content not included)... Normal [facility] 05-14-2025 [facility] Telephone (INTMWS) DIONY RAIMREZ ([id number]) 1955 F Date Time Provider Department 05/14/25 [facility] INTWS During your visit today, we recorded the following information about you: Jacki Mark LPN 05/14/2025 10:44 AM Signed Electronic SUNNY rec'd and completed for cyclobenzaprine. This was approved. Prior authorization approved Payer: Janet Note from payer: SUNNY Case: [id number], Status: Approved, Coverage Starts on: 02/12/2025 12:00:00 AM, Coverage Ends on: 05/14/2026 12:00:00 AM. Approval Details Authorization number: [id number] Authorized from February 12, 2025 to May 14, 2026 Electronic appeal: Not supported Prior auth initiated by: Jacki Mark LPN View History Notes Time User Attachment Attachment received from payer. 05/14/2025 10:40 AM [facility], Rx Priorauth In Document Medication Being Authorized cyclobenzaprine (FLEXERIL) 10 mg tablet Take 1 tablet by mouth three times a day as needed for muscle spasm. Dispense: 30 tablet Refills: 0 Start: 05/14/2025 Class: Normal Diagnoses: Lumbar radiculopathy [M54.16], Lumbar back pain [M54.50], Radiculopathy of lumbar region [M54.16] This order has been released to its destination. To be filled at: [facility] [address] [place] [address] [address] - [phone] Allergies As of Date: 05/14/2025 Noted Allergy Reaction FISH 06/23/2005 16 - Unknown HORSE/EQUINE CONTAINING PRODUCTS 08/30/2023 16 - Unknown LISINOPRIL 12/07/2015 3 - Cough SHELLFISH DERIVED 08/30/2023 16 - Unknown Date Reviewed: 05/14/2025 Reviewed by: Cami Kidd MA - Fully Assessed Reason for Visit: Insurance Authorization [[id number]] Prescriptions as of 05/14/2025 - cyclobenzaprine (FLEXERIL) 10 mg tablet Take 1 tablet by mouth three times a day as needed for muscle spasm. - omeprazole (PRILOSEC) 40 mg capsule Take 1 capsule by mouth once daily. - QUEtiapine (SEROQUEL) 50 mg tablet Take 1 tablet by mouth daily at bedtime. - traZODone (DESYREL) 150 mg tablet Take 1 tablet by mouth daily at bedtime. - alendronate (FOSAMAX) 70 mg tablet Take 1 tablet by mouth one time a week. In am with glass of water, on a empty stomach, nothing by mouth or lying down for 30 minutes - acyclovir (ZOVIRAX) 400 mg tablet Take 1 tablet by mouth two times a day. - amLODIPine (NORVASC) 2.5 mg tablet Take 1 tablet by mouth once daily. - Dextromethorphan-guai FENesin (ROBITUSSIN COUGH-CHEST ESTEFANÍA DM) 5-100 mg/5 mL liqd Take 10 mL by mouth every 4 hours as needed. - FOLIC ACID ORAL Take [...] times daily. Problem List As Of Date 05/14/2025 Noted Resolved Chronic interstitial cystitis [N30.10] 04/08/2006 [...] Carpal tunnel syndrome, right [G56.01] 01/03/2017 09/21/2019 Service [facility] (more content not included)... Normal [facility] H. PYLORI STOOL AGon 025 H PYLORI STL AG Negative Normal Negative [facility] Comment on above: Result Comment: Perf ormed at: - [facility] [place] [id number] Forester Silviculture: Yan Parnell PhD, Phone: [phone] Performed By: #### L 3100.1950 ####[facility] [address] [place], [place], [id number] Stool Helicobacter pylori an tigen detection by immunoassayOrdered By: Angella Cueto on 05-10-2025 H. pylori Ag IA Ql (Stl) Negative Negative [facility] Comment on above: Performed at: - [facility] [place] [id number] Director: Yan Parnell PhD, Phone: [phone] SP/HP.SP.Soheila 05-06-2025 SP/HP.SP.EV [facility] Speech Pathology 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 RX HERE Medical Diagnosis: Mild oropharyngeal dysphagia; Mild esophageal dysphagia Previous speech therapy: Yes Results: Diony previously participated in an evaluation, an MBSS (see report below), and one subsequent treatment sessions at this facility. Per the d/c summary: She was evaluated on 10/20/24 for dysphagia. [...] no further visits were scheduled by patient. Other Relevant Medical History/Diagnoses/Juan sally: PETAR RAMIREZ is a 70 year old female who [facility] of oropharyngeal and esophageal dysphagia. She presented to the evaluation independently and served as historian. Pt reporting her symptoms are the same as they were back in October, have not gotten worse or better. Pt reporting that she has not completed any of the oropharyngeal exercises since the last time she was here for speech therapy, nor has she implemented any of the behavioral changes that were recommended to implement while she was eating (e.g., alternating bites and drinks). She has also continued with previous diet. Diony reports having an EGD completed but was unsure of the results. She stated she thought she was here today for stretching or strengthening exercises. She reports that she is coughing on her saliva still too. PMH is also significant for: Vitamin D toxicity, Former smoker, Asthma, COPD [...] food impaction, Arnold-Chiari deformity, Alcohol abuse, Osteoporosis EGD 03/31/2025 Impression: - LA Grade A reflux esophagitis with no bleeding. Biopsied. - Moderate Schatzki ring. Dilated. - Small hiatal hernia. - No gross lesions in the entire stomach. - No gross lesions in the entire examined duodenum. 04/15/2025 GI appointment EGD revealed LA Grade A reflux esophagitis, small HH, moderate schatzki ring dilated to 57Fr with no resistance([place]). Pathologist notes histology is suggestive of H. pylori gastritis and recommends alternative testing if clinical suspicion remains, as the ICH was negative for H. pylori. She is continuing to experience episodes of choking and coughing with eating. She is not following ST recommendations. I have recommended she follow-up with OP ST. Medications related to this diagnosis: Pt reports continuing with Omeprazole. See chart for full list of medications. Smoking Status: Current every day smoker Diagnosis Diagnosis: Mild oropharyngeal dysphagia; Mild esophageal dysphagia Pain Is pain an issue with your current prescribed condition?: No Personal Preferred language: Lao Patient Allergies Allergies Allergies: Allergies Fish Containing Products Allergy (Severe, Verified 03/31/25 07:09) Angioedema shellfish derived Allergy (Severe, Verified 03/31/25 07:09) Angioedema Horse/Equine Containing Products Allergy (Unknown, Verified 03/31/25 07:09) NEEDS FOLLOW-UP lisinopril Allergy (Unknown, Verified 03/31/25 07:09) Unknown Objective Dysphagia Administered by Administered by: Self Thin Liquids Administred via: Cup Oral Transit: WNL Bolus clearance: fully cleared Cough: none observed/unable to assess Pharyngeal phase: immediate laryngeal elevation Comments: Asked Pt to start with a drink that was a normal size for her - she took approximately 1 oz (more content not included)... Normal [facility] CNOVon 05-04-2025 CNOV Office Visit (FAMPWS ) DERFLINGER,CANDY J ([id number]) 1955 F Date Time Provider Department 05/04/25 9:00 AM SHANITA GREEN During your visit today, we recorded the following information about you: Pulse Respiration Blood pressure Weight 81/minute 14/minute 130/70 41.8 kg Height 1.422 m Shanita Green PA-C 05/04/2025 9:34 AM Signed Chief Complaint Patient presents with: Follow Up: sciatic pain discussion wants MRI HPI Diony Ramirez is a 70 year old female who presents here today for Above Complaints.. Chronic Bilateral Gluteal Pain: - Pain localized to bilateral buttocks, more severe on the right side. - Occasional tingling sensation extending to the side of the knee. - Pain exacerbated by bending down; described as feeling like being ripped apart. - Pain has progressively worsened over the past few years. - No relief from Prednisone or Hydrocodone. - Diony Ramirez is scheduled for an injection at the pain management office; uncertain about the specific location of the injection. - Diony has tried various topical treatments and heat therapy without relief. - Pain affects [place] quality of life, limiting activities such as dancing. - Diony continues to walk approximately 0.25 miles for exercise despite pain. - Diony has a history of neuropathy affecting the anterior legs. 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 - Concerns about scar tissue from previous surgeries affecting current treatment. - Previous MRI in 2014 showed moderate to severe foraminal stenosis. - Diony has had multiple MRIs and back X-rays in the past. - Expresses fear and anxiety about injections due to a past experience with an abscess following an injection in 2012. Past medical history, appointments, medications, allergies reviewed. [...] 2D ECHO (EXEP) 05/23/2021 EF=65%, 1+TI. COLONOSCOPY N/A 03/31/2025 [facility] - Dr. Gill COLONOSCOPY FLX DX W/COLLJ SPEC WHEN PFRMD 08/19/2006 Repeat in COLONOSCOPY FLX DX W/COLLJ SPEC WHEN PFRMD 06/27/2016 Colonoscopy CRANIOPLASTY SKULL DEF/REPAIR/ BRAIN 09/14/2014 See scanned documents - status post EGD W/O [facility] SPEC VARICIES INJ N/A 03/31/2025 [facility] - Friend ESOPHAGOGASTRODUODENO SCOPY TRANSORAL DIAGNOSTIC 06/27/2016 EGD ESOPHAGOGASTRODUODENO SCOPY TRANSORAL DIAGNOSTIC 06/30/2018 EGD IANDD ABSCESS CMPLX/MULT 07/2013 Epidural abscess- MSSA LIG/TRNSXJ FLP TUBE ABDL/VAG APPR UNI/BI Tubal ligation PAST SURGICAL HISTORY OF spinal surgery PAST SURGICAL HISTOR (more content not included)... Normal [facility] Gastroenterology Visit Repor ton 04-20-2025 Gastroenterology Visit Report [facility] [address] [place] [address] OFFICE VISIT Date of Service: 04/20/25 MR#: [id number] Acct: [id number] Name: JENA RAMIREZ Rep #: [id number] : 1955 Provider: TRACI neil Age/Sex: 70/F [facility] [facility] Status: Signed Intake Vital Signs 03/31/25 07:10 04/20/25 10:26 Height 4 ft 9 in 4 ft 9 in Weight: 92 lb 4 oz BMI 19.9 Intake Visit Reasons: Test Result Chief Complaint: dysphagia Allergies Fish Containing Products Allergy (Severe, Verified 03/31/25 07:09) Angioedema shellfish derived Allergy (Severe, Verified 03/31/25 07:09) Angioedema Horse/Equine Containing Products Allergy (Unknown, Verified 03/31/25 07:09) NEEDS FOLLOW-UP lisinopril Allergy (Unknown, Verified 03/31/25 07:09) Unknown Have you fallen in the past year?: No [facility] Medical History Alcohol use Easy bruising Gastric reflux History [...] of physical activity do you participate in: walking and 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 HPI HPI Chief Complaint: dysphagia Details: OV 12/14/2024 69y/o female presents for initial consultation with complaints of lower esophageal dysphagia without reflux and history of FBO x2. Biopsies were negative for Mcpherson's and H. pylori in 2018. MBS co mpleted 11/24/2024 revealed retention of pudding in middle and lower esophagus, which fully cleared w/ thin liquid wash. She complains of frequent choking on saliva, liquids and solids as well. She denies any HB, N/V, or weight loss. Family history is significant for father with colon cancer. I have scheduled her for an EGD and screening colonoscopy. She will continue Omeprazole 40mg daily and follow-up in the office post procedure. Patient Instructions: EGD Colon - SuFlave Continue Omeprazole 40mg daily Follow-up post procedure EGD 03/31/2025 biopsies are negative for Mcpherson's and H. pylori. However; pathologist notes the histology is suggestive of H. pylori gastritis and recommends alternative testing if clinical suspicion remains. - LA Grade A reflux esophagitis with no bleeding. Biopsied. - Moderate Schatzki ring. Dilated. Savary dilator with no resistance at 57 Fr. - Small hiatal hernia. - No gross lesions in the entire stomach. - No gross lesions in the entire examined duodenum. COLON 03/31/2025 - tubular adenomas x2 (7mm) Dr. Gill has recommended recall in 5 years - Diverticulosis in the recto-sigmoid colon and in the sigmoid colon. - Two 7 mm polyps in the transverse colon and at the hepatic flexure, removed with a cold biopsy forceps. Resected and retrieved. - The examination was otherwise normal on direct and retroflexion views. - Rectal prolapse. ROS Const Constitutional: Positive for fatigue; No fever(s) or weight change ENT ENT: No difficulty swallowing Cardio Cardiology: Positive for leg pain with exertion Gastro GI: No abdominal pain, belching, bloating, change in bowel habits, change in stool character, coffee ground emesis, constipation, cramping, diarrhea, heartburn, difficulty swallowing, feeling full early, excessive flatus, incontinent of stools, Vomiting b (more content not included)... Normal [facility] 04-05-2025 [facility] Telephone ([facility]) DIONY RAMIREZ ([id number]) 1955 F Date Time Provider Department 04/05/25 SHANITA GREEN [facility] During your visit today, we recorded the following information about you: Maliha Fregoso, RN 04/05/2025 8:30 AM Signed Patient calls with update since changing medication to help her sleep. She reports that she is currently taking the doxepin 6 mg at bedtime and her sleep is worse than when she was taking the quetiapine. Patient reports that she wants to go back on the quetiapine when she is complete with current prescription of doxepin (she has maybe a weeks worth left). Patient reports that she is also taking the melatonin 10 mg at bedtime and Trazodone 150 mg at bedtime. [facility]acy [facility]. Please review and advise, ELDER Robertson Rayanne, PA-C 04/05/2025 9:06 AM Signed Noted. Shanita Green PA-C Allergies As of Date: 04/05/2025 Noted Allergy Reaction FISH 06/23/2005 16 - Unknown HORSE/EQUINE CONTAINING PRODUCTS 08/30/2023 16 - Unknown LISINOPRIL 12/07/2015 3 - Cough SHELLFISH DERIVED 08/30/2023 16 - Unknown Date Reviewed: 03/15/2025 Reviewed by: Melita Le LPN - Fully Assessed Reason for Visit: Medication Problem [65] Order(s):QUEtiapine (SEROQUEL) 50 mg tabletTake 1 tablet by mouth daily at bedtime.Disp: 30 tabletRfl: 5 Prescriptions as of 04/05/2025 - QUEtiapine (SEROQUEL) 50 mg tablet Take 1 tablet by mouth daily at bedtime. - traZODone (DESYREL) 150 mg tablet Take 1 tablet by mouth daily at bedtime. - alendronate (FOSAMAX) 70 mg tablet Take 1 tablet by mouth one time a week. In am with glass of water, on a empty stomach, nothing by mouth or lying down for 30 minutes - acyclovir (ZOVIRAX) 400 mg tablet Take 1 tablet by mouth two times a day. - celecoxib (CELEBREX) 200 mg capsule Take 1 capsule by mouth once daily. - amLODIPine (NORVASC) 2.5 mg tablet Take 1 tablet by mouth once daily. - Dextromethorphan-guai FENesin (ROBITUSSIN COUGH-CHEST ESTEFANÍA DM) 5-100 mg/5 mL [...] times daily. Problem List As Of Date 04/05/2025 Noted Resolved Chronic interstitial cystitis [N30.10] 04/08/2006 [...] [H54.40] 01/27/2021 Medicare annual wellness visit, subsequent [Z (more content not included)... Normal [facility] Colonoscopy Reporton 025 Colonoscopy Report [facility] Medical Records Department [address] [place] [address] Colonoscopy Report MR#: [id number] Acct: [id number] Name: JENA RAMIREZ HUDSON Rep #: [id number] : 1955 70 From: Robe Gill DO PCP: Dr. Rito Camp MD Status:REG [facility] Patient Name: Jena Ramirez Procedure Date: 03/31/2025 8:29 AM Date of : 1955 Age: 70 Procedure: Colonoscopy Indications: Screening for colorectal malignant neoplasm Providers: Robe Gill DO Referring MD: Rito Camp MD Medicines: Monitored Anesthesia Care Patient Profile: This is a 70 year old female. Refer to note in patient chart for documentation of history and physical. Patient has symptoms of dysphagia with solids. Last Colonoscopy: several years ago. Complications: No immediate complications. Procedure: Pre-Anesthesia Assessment: - Prior to the procedure, a History and Physical was performed, and patient medications and allergies were reviewed. The patient is competent. The risks and benefits of the procedure and the sedation options and risks were discussed with the patient. All questions were answered and informed consent was obtained. Patient identification and proposed procedure were verified by the physician in the pre-procedure area. Mental Status Examination: alert and oriented. Airway Examination: normal oropharyngeal airway and neck mobility. Respiratory Examination: clear to auscultation. CV Examination: normal. Prophylactic Antibiotics: The patient does not require prophylactic antibiotics. Prior Anticoagulants: The patient has taken no anticoagulant or antiplatelet agents except for NSAID medication. ASA Grade Assessment: II - A patient with mild systemic disease. After reviewing the risks and benefits, the patient was deemed in satisfactory condition to undergo the procedure. The anesthesia plan was to use monitored anesthesia care (MAC). Immediately prior to administration of medications, the patient was re-assessed for adequacy to receive sedatives. The heart rate, respiratory rate, oxygen saturations, blood pressure, adequacy of pulmonary ventilation, and response to care were monitored throughout the procedure. The physical status of the patient was re-assessed after the procedure. After I obtained informed consent, the scope was passed under direct vision. Throughout the procedure, the patient's blood pressure, pulse, and oxygen saturations were monitored continuously. The colonoscope was introduced through the anus and advanced to the cecum, identified by appendiceal orifice and ileocecal valve. The colonoscopy was performed without difficulty. The patient tolerated the procedure well. The quality of the bowel preparation was adequate. The ileocecal valve, appendiceal orifice, and rectum were photographed. Scope In: 8:32:43 AM Scope Withdrawal Time 0 hours 10 minutes 23 seconds Scope Out: 8:49:36 AM Total Procedure Duration Time 0 hours 16 minutes 53 seconds Findings: The perianal and digital rectal examinations were normal. Multiple small and large-mouthed diverticula were found in the recto-sigmoid colon and sigmoid colon. Two sessile polyps were found in the transverse colon and hepatic flexure. The polyps were 7 mm in size. These polyps were removed with a cold biopsy forceps. Resection and retrieval were complete. Verification of patient identification for the specimen was done. Estimated blood loss was minimal. The exam was otherwise without abnormality on direct and retroflexion views. Mild rectal prolapse was present. Impression: - Diverticulosis in the recto-sigmoid colon and in the sigmoid colon. - Two 7 mm polyps in the transverse colon and at the hepatic flexure, removed with a cold biopsy forceps. Resected and retrieved. - The examination was otherwise normal on direct and retroflexion views. - Rectal prolapse. Recommendation: - Discharge patient to home. - Resume previous diet. - Continue present medications. - Await pathology results. - Repeat colonoscopy in 5 years for surveillance. Procedure Code(s): --- Professional --- 53736, Colonoscopy, flexible; with biopsy, single or multiple CPT copyright 2021 [employer]. All rights reserved. The codes documented in this report are preliminary and upon data acquisition technician review may be revised to meet current compliance requirements. Robe Gill DO 03/31/2025 9:09:10 AM This report has been signed electronically. Number of Addenda: 0 Note Initiated On: 03/31/2025 8:29 AM 03/31/25 0909 Date Robe Gill DO Cosigner Signature: Date (if indicated) CC: Dr. Rito Camp MD; Robe Gill DO Date Dictated: 03/31/2529 D (more content not included)... Normal [facility] EGD Reporton 03-31-2025 EGD Report [facility] Medical Records Department [address] [place] [address] EGD Report MR#: [id number] Acct: [id number] Name: JENA RAMIREZ HUDSON Rep #: [id number] : 1955 70 From: Robe Gill DO PCP: Dr. Rito Camp MD Status:[facility] Patient Name: Jena Ramirez Procedure Date: 03/31/2025 8:11 AM Date of : 1955 Age: 70 Procedure: Upper GI endoscopy Indications: Dysphagia Providers: Robe Gill DO Referring MD: Rito Camp MD Medicines: Monitored Anesthesia Care Patient Profile: This is a 70 year old female. Refer to note in patient chart for documentation of history and physical. Patient has symptoms of dysphagia with solids. Complications: No immediate complications. Procedure: Pre-Anesthesia Assessment: - Prior to the procedure, a History and Physical was performed, and patient medications and allergies were reviewed. The patient is competent. The risks and benefits of the procedure and the sedation options and risks were discussed with the patient. All questions were answered and informed consent was obtained. Patient identification and proposed procedure were verified by the physician in the pre-procedure area. Mental Status Examination: alert and oriented. Airway Examination: normal oropharyngeal airway and neck mobility. Respiratory Examination: clear to auscultation. CV Examination: normal. Prophylactic Antibiotics: The patient does not require prophylactic antibiotics. Prior Anticoagulants: The patient has taken no anticoagulant or antiplatelet agents except for NSAID medication. ASA Grade Assessment: II - A patient with mild systemic disease. After reviewing the risks and benefits, the patient was deemed in satisfactory condition to undergo the procedure. The anesthesia plan was to use monitored anesthesia care (MAC). Immediately prior to administration of medications, the patient was re-assessed for adequacy to receive sedatives. The heart rate, respiratory rate, oxygen saturations, blood pressure, adequacy of pulmonary ventilation, and response to care were monitored throughout the procedure. The physical status of the patient was re-assessed after the procedure. After obtaining informed consent, the endoscope was passed under direct vision. Throughout the procedure, the patient's blood pressure, pulse, and oxygen saturations were monitored continuously. The colonoscope was introduced through the mouth, and advanced to the second part of duodenum. The upper GI endoscopy was accomplished without difficulty. The patient tolerated the procedure well. Scope In: 8:21:44 AM Scope Out: 8:29:00 AM Total Procedure Duration Time 0 hours 7 minutes 16 seconds Findings: LA Grade A (one or more mucosal breaks less than 5 mm, not extending between tops of 2 mucosal folds) esophagitis with no bleeding was found 37 to 39 cm from the incisors. Biopsies were taken with a cold forceps for histology. Verification of patient identification for the specimen was done. Estimated blood loss was minimal. A moderate Schatzki ring was found at the gastroesophageal junction. A guidewire was placed and the scope was withdrawn. Dilation was performed with a Savary dilator with no resistance at 57 Fr. The dilation site was examined and showed moderate improvement in luminal narrowing. A small hiatal hernia was present. No gross lesions were noted in the entire examined stomach. No gross lesions were noted in the entire examined duodenum. Patchy mildly erythematous mucosa without bleeding was found in the gastric body. Biopsies were taken with a cold forceps for histology. Verification of patient identification for the specimen was done. Estimated blood loss was minimal. Biopsies were taken with a cold forceps for Helicobacter pylori testing. Verification of patient identification for the specimen was done. Estimated blood loss was minimal. Impression: - LA Grade A reflux esophagitis with no bleeding. Biopsied. - Moderate Schatzki ring. Dilated. - Small hiatal hernia. - No gross lesions in the entire stomach. - No gross lesions in the entire examined duodenum. Recommendation: - Discharge patient to home. - Resume previous diet. - Continue present medications. - Await pathology results. Procedure Code(s): --- Professional --- 33466, Esophagogastroduodeno scopy, flexible, transoral; with insertion of guide wire followed by passage of dilator(s) through esophagus over guide wire 02499, 59,51, Esophagogastroduodeno scopy, flexible, transoral; with biopsy, single or multiple CPT copyright 2021 [employer]. All rights reserved. The codes documented in this report are preliminary and upon data acquisition technician review may be revised to meet current compliance requirements. Robe Gill DO 03/31/2025 9:07:01 A (more content not included)... Normal [facility] Immunohistochemical Stainson 03-31-2025 Immunohistochemical Stains -------- Patient Age/Sex Location Account Attending Physician -------- BASIMJENA SIMS HUDSON 70/F EN [id number] Robe Gill DO -------- Specimen: [id number] Received: 03/31/25 Status: [facility]ONOlivia Katia Num: [id number] Spec Type: EGD BIOPSY Subm Dr: Robe Gill DO HEADER OPERATION: Colonoscopy with polypectomy, EGD, biopsy PRE-OP DIAGNOSIS: Screening, family history of colon cancer, dysphagia TISSUE SUBMITTED: A- Distal esophagus biopsy, B- Gastric body biopsy, C- Hepatic flexure polyp, D- Transverse colon polyp -------- MICROSCOPIC DIAGNOSIS A. Distal esophagus, biopsy: - Squamocolumnar mucosa with reactive changes. - Negative for goblet cell metaplasia. B. Gastric body, biopsy: - Oxyntic mucosa with active chronic gastritis. - IHC negative for H.pylori organisms - see note. Note: The histology is suggestive of H pylori gastritis. If clinical suspicion remains, suggest obtaining alternative testing for Helicobacter organisms. C. Colon, hepatic flexure, polyp, biopsy: - Tubular adenoma. D. Transverse colon, polyp, biopsy: - Tubular adenoma. MICROSCOPIC DESCRIPTION Slides are reviewed. All matched controls reacted appropriately. These tests were developed and their performance characteristics determined by [facility]. They may not have been cleared or approved by the U.S. Food and Drug Administration. The FDA has determined that such clearance or approval is not necessary. The above immunohistochemical/d ualISH markers are viewed by the Pathologist. GROSS DESCRIPTION A. Received in fixative is one container labeled with the patient's name and designated Distal esophagus biopsy. The specimen consists of two irregular fragments of light hurley soft tissue, each measuring 0.4 cm. The specimen is totally submitted in one cassette. B. Received in fixative is one container labeled with the patient's name and designated Gastric body biopsy. The specimen consists of three irregular fragments of light hurley soft tissue that in aggregate measure 0.2 to 0.4 cm. The specimen is totally submitted in one -------- Patient Age/Sex Location Account Attending Physician -------- JENA RAMIREZ 70/F EN [id number] Robe Friend, DO -------- cassette. C. Received in fixative is one container labeled with the patient's name and designated Hepatic flexure polyp. The specimen consists of one irregular fragment of light hurley soft tissue that measures 0.9 cm. The specimen is totally submitted in one cassette. D. Received in fixative is one container labeled with the patient's name and designated Transverse colon polyp. The specimen consists of two irregular fragments of light hurley soft tissue that in aggregate measure 0.3 and 0.4 cm. The specimen is totally submitted in one cassette. UT 03/31/2025 [facility]:[id number] -------- Patient Age/Sex Location Account Attending Physician -------- JENA RAMIREZ 70/F EN [id number] Robe Gill DO -------- Signed (signature on file) Dr. Gabriela Braun MD 04/05/25 1254 -------- Normal [facility] Comment on above: Performed By: #### P [facility] ####[facility] [id number] [place], [place], [id number] MR/OP.PROVATon 03-31-2025 MR/OP.PROVAT [facility] Medical Records Department [address] [place] [address] Provation Physician Letter MR#: [id number] Acct: [id number] Name: JENA RAMIREZ Rep #: [id number] : 1955 70 From: Robe Gill DO PCP: Dr. Rito Camp MD Status:REG [facility] 03/31/2025 Rito Camp MD Re : Colonoscopy procedure for Jena Ramirez Dear Dr. Camp This procedure was performed on Saturday, March 31, 2025. My impressions and recommendations are as follows: Impressions : - Diverticulosis in the recto-sigmoid colon and in the sigmoid colon. - Two 7 mm polyps in the transverse colon and at the hepatic flexure, removed with a cold biopsy forceps. Resected and retrieved. - The examination was otherwise normal on direct and retroflexion views. - Rectal prolapse. Recommendations : - Discharge patient to home. - Resume previous diet. - Continue present medications. - Await pathology results. - Repeat colonoscopy in 5 years for surveillance. My findings are described in the full procedure note, which is enclosed. If I can be of further assistance, please feel free to contact me at . Sincerely, Robe Gill DO 03/31/2025 9:09:10 AM This report has been signed electronically. 03/31/25908 Date Robe Franklin Signature: Date (if indicated) CC: Dr. Rito Camp MD; Robe Gill DO Date Dictated: 03/31/25828 Date Transcribed: Curator Of Manuscripts: RF Signed Normal [facility] MR/OP.[facility] Medical Records Department [address] [place] [address] Provation Physician Letter MR#: [id number] Acct: [id number] Name: JENA RAMIREZ Rep #: [id number] : 1955 70 From: Robe Gill DO PCP: Dr. Rito Camp MD Status:[facility] 03/31/2025 Rito Camp MD Re : Upper GI endoscopy procedure for Jena Ramirez Dear Dr. Camp This procedure was performed on Monday, March 31, 2025. My impressions and recommendations are as follows: Impressions : - LA Grade A reflux esophagitis with no bleeding. Biopsied. - Moderate Schatzki ring. Dilated. - Small hiatal hernia. - No gross lesions in the entire stomach. - No gross lesions in the entire examined duodenum. Recommendations : - Discharge patient to home. - Resume previous diet. - Continue present medications. - Await pathology results. My findings are described in the full procedure note, which is enclosed. If I can be of further assistance, please feel free to contact me at . Sincerely, Robe Gill DO 03/31/2025 9:07:01 AM This report has been signed electronically. 03/31/25906 Date Robe Franklin Signature: Date (if indicated) CC: Dr. Rito Camp MD; Robe Gill DO Date Dictated: 03/31/25810 Date Transcribed: Curator Of Manuscripts: SANAM Signed [facility] MR/POSTOP.ANEon 03-31-2025 MR/POSTOP.[facility] Medical Records Department [address] [place] [address] Anesthesia Postop Eval I 03/31/25 0900 MR#: [id number] Acct: [id number] Name: JENA RAMIREZ HUDSON Rep #: [id number] : 1955 70 From: Filipe Rahman PCP: Dr. Rito Camp MD Status:REG SDC Y Race: C Location: [place] [address] Anesthesia: Postop Eval I Current Vital Signs Temperature: 98 F Pulse Rate: 86 Blood Pressure: 122/77 Respiratory Rate: 16 Pulse Ox: 98 Oxygen Delivery Method: Room Air Assessment Airway patent: Yes Spontaneous unlabored respirations: Yes Mental status: Awake and Calm nausea: No Vomiting: No Anesthesia Complication: No Fluid Hydration Crystalloid volume administer (ml): 700 Total IV fluid infused: 700 Progress Note Anesthesia document: Postop Eval 1 completed: Yes 03/31/25901 Date Filipe Mello Signature: Date CC: Signed [facility] MR/[id number] 03-31-2025 MR/POSTOPAN2 [facility] Medical Records Department [address] [place] [address] Anesthesia Postop Eval II 03/31/25 0922 MR#: [id number] Acct: [id number] Name: JENA RAMIREZ HUDSON Rep #: [id number] : 1955 70 From: Gustavo Roque MD PCP: Dr. Rito Camp MD Status:REG SDC Y Race: C Location: [place] [address] Anesthesia Postop Eval I Sum Postop Eval Completion status Anesthesia document: Postop Eval 1 completed: Yes Anesthesia Postop Eval I Summary Anesthesia Postop Eval I Summary: Anesthesia Postop Eval I: Assessment Summary Airway patent Yes 03/31/25 09:02 [email or web address] Spontaneous unlabored Yes 03/31/25 09:02 [email or web address] respirations Mental status Awake,Calm 03/31/25 09:02 [email or web address] nausea No 03/31/25 09:02 [email or web address] Vomiting No 03/31/25 09:02 [email or web address] Anesthesia Postop Eval I: Fluid Summary Crystalloid volume administer 700 03/31/25 09:02 [email or web address] (ml) Colloids volume administered ( ml) Blood Product volume administered (ml) Total IV fluid infused 700 03/31/25 09:02 [email or web address] Anesthesia Postop Eval I: Summary Notes Anesthesia Complication No 03/31/25 09:02 [email or web address] Anesthesia Complication Comment: Post-operative progress note Anesthesia: Postop Eval II Evaluation Mental status: Awake and Calm Pain Level: 0 nausea: No Vomiting: No Progress Note Post-operative progress note: meets discharge criteria Complications Anesthesia Complication: No 03/31/25921 Date Gustavo Roque MD Cosigner Signature: Date CC: Signed Normal [facility] MR/PAT.GERMANon 03-25-2025 MR/PAT.[facility] Medical Records Department [address] [place] [address] PAT - Anesthesia 03/25/25 1623 MR#: [id number] Acct: [id number] Name: JENA RAMIREZ Rep #: [id number] : 1955 70 From: Humberto Gudino MD PCP: Dr. 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 Female Yes 03/25/25 16:02 HX of Motion [...] 02/09/25 07:42 Respiratory Assessment Respiratory 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 Hx Respiratory Tract Infection No 03/25/25 16:02 STOP Sleep Apnea STOP Sleep Apnea - 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: STOP Sleep Apnea - 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 Hx Hypertension Yes: PER PT, CONTROLLED ON [...] 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 confused, unrespo /Reproductio n History /Reproductiv e History - 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: /Reproductiv e Hx- 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 Hx Now No 03/25/25 16:02 Gestational Age (in weeks): EDC: Hx Hx Para Hx Section SAB No 03/25/25 16:02 [facility] Medical History (Updated 03/25/25 @ 16:13 by [...] Stage 2 mo (more content not included)... [facility] 03-17-2025 CNPN Telephone (FAMPWS) DIONY RAMIREZ ([id number]) 1955 F Date Time Provider Department 03/17/25 [facility] During your visit today, we recorded the following information about you: [place]ia Gill RN 03/17/2025 9:03 AM Signed Benito from [facility] calls with prior authorization questions for Doxepin. Questions Answered. Will fax results of prior authorization within 72 hours. Please Watch for response. PRIOR AUTHORIZATION Medication for Prior Authorization: Doxepin Insurance Company: [employer] Patient insurance ID number: [id number] ELDER Courtney Janice, LPN 03/17/2025 10:27 AM Signed Covermybeata CORREA rec'd. Did request PA electronically to [...] Fully Assessed Reason for Visit: Insurance Authorization [[id number]] Prescriptions as of 03/17/2025 - Doxepin 3 [...] 1 tablet by mouth once daily. - Dextromethorphan-guai FENesin (ROBITUSSIN COUGH-CHEST ESTEFANÍA DM) 5-100 mg/5 mL [...] Carpal tunnel syndrome, right [G56.01] 01/03/2017 09/21/2019 Chr (more content not included)... Normal [facility] BETA 2 GLYCOPROTEIN, IGGon 0 03-15-2025 Beta 2 glycoprotein 1 IgG IA Qn <9 Normal <20 [facility] Comment on above: Order Comment: Crow chavarria Type: BLOOD SPECIMENOrdering Facility: [facility] Address: [address] [place] [address] Result Comment: <20 SGU Negative 20-80 SGU Low Positive >80 SGU High Positive These results were obtained with the Inova QUANTA Lite B2 GPI IgG BRIGETTE. B2 GPI IgG values obtained with different manufacturers' assay methods may not be used interchangeably. The magnitude of the reported IgG levels cannot be correlated to an endpoint titer. Performed By: #### 5 076-5, CARDIG, CARDIM, BETA2G, BETA2M ####[facility] LABIA [id number] [place] [address] [place] BETA 2 GLYCOPROTEIN, IGMon 0 03-15-2025 Beta 2 glycoprotein 1 IgM IA Qn <9 Normal <20 [facility] Comment on above: Order Comment: Crow chavarria Type: BLOOD SPECIMENOrdering Facility: [facility] Address: [address] [place] [address] Result Comment: <20 SMU Negative 20-80 SMU Low Positive >80 SMU High positive These results were obtained with the Inova QUANTA Lite B2 GPI IgM BRIGETTE. B2 GPI IgM values obtained with different manufacturers' assay methods may not be used interchangeably. The magnitude of the reported IgM levels cannot be correlated to an endpoint titer. Performed By: #### 5 076-5, CARDIG, CARDIM, BETA2G, BETA2M ####[facility] LABCLIA [id number] [address] [place] CARDIOLIPIN IGG ABSon 2024 Cardiolipin IgG IA Qn (S) <9.0 Normal <15.0 [facility] Comment on above: Order Comment: Crow chavarria Type: BLOOD SPECIMENOrdering Facility: [facility] Address: [address] [place] [address] Result Comment: <15 GPL Negative 15-20 GPL Indeterminate >20 GPL Positive The following results were obtained with the Inova QUANTA Lite JOSE JUAN IgG III BRIGETTE. Cardiolipin IgG values obtained with the different manufacturers' assay methods may not be used interchangeably. The magnitude of the reported IgG levels cannot be correlated to an endpoint titer. Performed By: #### 5 076-5, SERVANDO TURCIOS, BETA2G, BETA2M ####[facility] [id number] [place] [id number] [facility] CARDIOLIPIN IGM ABSon 2024 Cardiolipin IgM IA Qn (S) 16.8 MPL High <12.5 [facility] Comment on above: Order Comment: Speci men Type: BLOOD SPECIMENOrdering Facility: [facility] Address: [address] [place] [address] Result Comment: <12. 5 MPL Negative 12.5-20 MPL Indeterminate >20 MPL Positive The following results were obtained with the InnoCCA Lite JOSE JUAN IgM III BRIGETTE. Cardiolipin IgM values obtained with the different manufacturers' assay methods may not be used interchangeably. The magnitude of the reported IgM levels cannot be correlated to an endpoint titer. ??? Performed By: #### 5 076-5, SERVANDO TURCIOS, BETA2G, BETA2M ####[facility] [id number] [address] OF [facility] CNOVon 03-15-2025 CNOV Office Visit (FAMPWS ) DIONY RAMIREZ ([id number]) 1955 F Date Time Provider Department 03/15/25 [...] See s (more content not included)... Normal [facility] CRP SerPl-mCncon 03-15-2025 CRP [Mass/Vol] mg/L Normal <0.9 [facility] Comment on above: Order Comment: Speci men Type: BLOOD SPECIMENOrdering Facility: [facility] Address: [address] [place] [address] Performed By: #### 1 988-5 ####[facility] LABCLIA [id number] [place] [address] [place] Cardiolipin IgA Ser IA-aCnco n 03-15-2025 Cardiolipin IgA IA Qn (S) <9.0 Normal <12.0 [facility] Comment on above: Order Comment: Speci men Type: BLOOD SPECIMENOrdering Facility: [facility] Address: [address] [place] [address] Result Comment: <12 APL Negative 12-20 APL Indeterminate >20 APL Positive The following results were obtained with the [employer]ov[employer] QUANTA Lite JOSE JUAN IgA III BRIGETTE. Cardiolipin IgA values obtained with the different manufacturers' assay methods may not be used interchangeably. The magnitude of the reported IgA levels cannot be correlated to an endpoint titer. Performed By: #### 5 076-5, CARDIG, CARDIM, BETA2G, BETA2M ####[facility] [id number] [place] [address] [place] HYPERCOAG PANELon 03-15-2025 Activated protein C resistance Coag (PPP) [Time ratio] 5.92 Ratio Normal >=2.90 [facility] Comment on above: Order Comment: Speci men Type: BLOOD SPECIMENOrdering Facility: [facility] Address: [address] [place] [address] Performed By: #### L [id number], HCOAG ####[facility] LABCLIA [id number] [place] [id number] [place] Antithrombin actual/normal Chromogenic method (PPP) [Rel catalytic activity/Vol] 100 % Normal 84-138 [facility] Comment on above: Order Comment: Speci men Type: BLOOD SPECIMENOrdering Facility: [facility] Address: [address] [place] [address] Performed By: #### L [id number], HCOAG ####[facility] LABCLIA [id number] [place] [address] [place] aPTT Coag (Bld) [Time] 28.9 s Normal 24.0-35.1 [facility] Comment on above: Order Comment: Speci men Type: BLOOD SPECIMENOrdering Facility: [facility] Address: [address] [place] [address] Performed By: #### L [id number], HCOAG ####[facility]CL[facility] [id number] [place] [address] [place] aPTT W excess hexagonal phase phospholipid Coag (PPP) [Time] 41.7 seconds Normal 34.0-51.8 [facility] Comment on above: Order Comment: Speci men Type: BLOOD SPECIMENOrdering Facility: [facility] Address: [address] [place] [address] Performed By: #### L [id number], HCOAG ####[facility]CL[facility] [id number] [address] [place] Coagulation factor VIII activity actual/normal Coag (PPP) [Relative time] 154 % Normal 50-173 [facility] Comment on above: Order Comment: Speci men Type: BLOOD SPECIMENOrdering Facility: [facility] Address: [address] [place] [address] Performed By: #### L [id number], HCOAG ####[facility]CLIA [id number] [place] [address] [place] Coagulation factor X activated act Coag Qn (PPP) <0.10 Normal <0.10 [facility] Comment on above: Order Comment: Speci men Type: BLOOD SPECIMENOrdering Facility: [facility] Address: [address] [place] [address] Result Comment: This test was developed, and its performance characteristics determined by the [facility] Department of Pathology and Laboratory Medicine. It has not been cleared or approved by the FDA. The [facility] Department of Pathology and Laboratory Medicine is regulated under CLIA as qualified to perform high-complexity testing. This test is used for clinical purposes. It should not be regarded as investigational or for research. Performed By: #### L [id number], HCOAG ####[facility] LABCLIA [id number] [place] [address] [place] Delta dRVVT Coag (PPP) [Time diff] 2.1 delta seconds Normal <7.1 [facility] Comment on above: Order Comment: Speci men Type: BLOOD SPECIMENOrdering Facility: [facility] Address: [address] [place] [address] Performed By: #### L [id number], HCOAG ####[facility]CL[facility] [id number] [place] [address] [place] dRVVT W excess hexagonal phase phospholipid actual/normal Coag (PPP) [Relative time] 39.5 seconds Normal 34.2-47.9 [facility] Comment on above: Order Comment: Speci men Type: BLOOD SPECIMENOrdering Facility: [facility] Address: [address] [place] [address] Performed By: #### L [id number], HCOAG ####[facility] LABCLIA [id number] [place] [address] [place] FIBRINOGEN ACTIVITY 276 mg/dL Normal 200-400 [facility] Comment on above: Order Comment: Speci men Type: BLOOD SPECIMENOrdering Facility: [facility] Address: [address] [place] [address] Performed By: #### L [id number], HCOAG ####[facility]CL[facility] [id number] [place] [address] [place] Protein C actual/normal Coag (PPP) [Relative time] 100 % Normal 76-147 [facility] Comment on above: Order Comment: Speci men Type: BLOOD SPECIMENOrdering Facility: [facility] Address: [address] [place] [address] Performed By: #### L [id number], HCOAG ####[facility] [id number] [place] [address] [place] Protein S actual/normal Coag (PPP) [Relative time] 91 % Normal 59-152 [facility] Comment on above: Order Comment: Speci men Type: BLOOD SPECIMENOrdering Facility: [facility] Address: [address] [place] [address] Performed By: #### L [id number], HCOAG ####[facility] [id number] [place] [address] [place] PT Coag (Bld) [Time] 12.8 s Normal 11.6-14.4 [facility] Comment on above: Order Comment: Speci men Type: BLOOD SPECIMENOrdering Facility: [facility] Address: [address] [place] [address] Performed By: #### L [id number], HCOAG ####[facility] [id number] [place] [address] [place] Thrombin time Coag (PPP) [Time] 17.7 seconds Normal <18.6 [facility] Comment on above: Order Comment: Speci men Type: BLOOD SPECIMENOrdering Facility: [facility] Address: [address] [place] [address] Performed By: #### L [id number], HCOAG ####[facility] [id number] [place] [address] [place] HYPERCOAG PANEL INTERPon INTERPRETATION (HYPERCOAG) Normal [facility] Comment on above: Order Comment: Speccynthia chavarria Type: BLOOD SPECIMENOrdering Facility: [facility] Address: [address] [place] [address] Result Comment: Roshan ntsyl normal - see comment below. A laboratory [...] negative for the c.*97G>A variant (legacy name 23680O>A) in the 3' untranslated region of the Factor II (F2) prothrombin gene. This result is not associated with an increased risk of thromboembolic disease. Please refer to the interpretation provided with the PT Gene Mutation result for further diagnostic and prognostic information. Please correlate these laboratory results with clinical findings and medication history. Performed By: #### L [id number], HCOAG ####[facility]CL[facility] [id number] [place] [address] [place] Pathologist name Reviewed by Bethany Tovar M.D., Ph.D Normal [facility] Comment on above: Order Comment: Crow chavarria Type: BLOOD SPECIMENOrdering Facility: [facility] Address: [address] [place] [address] Performed By: #### L [id number], HCOAG ####[facility]CLIA [id number] [address] [facility] PROTHROMBIN GENE PCRon 03-15 PROTHROMBIN GENE MUTATION Normal [facility] Comment on above: Order Comment: Speci men Type: BLOOD SPECIMENOrdering Facility: [facility] Address: [address] [place] [address] Result Comment: Prot hrombin Gene Mutation Laboratory Accession Number: [id number] Result: NORMAL Interpretation: The DNA sample is negative for the c.*97G>A variant (legacy name 34950Z>A) in the 3' untranslated region of the Factor II (F2) gene. This result is not associated with an increased risk of thromboembolic disease. Thromboembolic disease is a multifactorial disorder and other causes are not excluded by this result. Methodology: Isolated Genomic DNA from the patient's blood specimen is evaluated for the c*97G>A ([id number].[id number]) variant of the F2 gene [RefSeq NM_000506.53;GRCh38/hg38] by multiplex polymerase chain reaction (PCR) followed by melting curve analysis. Limitations: This assay is designed to detect the c.*97G>A (73300G>A) variant in the F2 gene. Uncommon variants or single nucleotide polymorphisms may affect binding of probes and may rarely result in false negative, false positive or indeterminate results. This assay does not detect other disease-associated rare variants in F2 or other causes of thromboembolic disease. Disclaimer: This test was developed and its performance characteristics determined by [facility]'s Pathology and Laboratory Medicine Department. It has not been cleared or approved by the FDA. [facility]'s Pathology and Laboratory Medicine Department is regulated under CLIA as certified to perform high-complexity testing. This test is used for clinical purposes. It should not be regarded as investigational or for research. Test performed at [facility], [address] [place] [address]. CLIA Number: [id number] References: 1) Inheritied Thrombophilias in . ACOG Practice Bulletin. No. 197. [employer] College [employer]stetricians and Gynec[employer]. Obsete Gynecol 2018;132:e18-34. 2) Jyothi SR, Dariana FR, Guy PH, and Romina RM. A common genetic variation in the 3'-untranslated region of the prothrombin gene is associated with elevated plasma prothrombin levels and an increase in venous thrombosis. Blood 88:3698-703, 1995. 3) Juan Jose Campos, Jake V, Hussain C, Jaymie Barboza. Prothrombin 65182Z>T: 16 new cases, association with the 61792W>G polymorphism, and literature review. J Thromb Haemost. 2009;9:1585-7. Interpretation performed at remote location ([facility] [place] by Talia Hsu, PhD Performed By: #### P TGEN ####[facility] [id number] [address] [address] [place] Pulmonary Visit Reporton Pulmonary Visit Report [facility] [place] [address] [facility] [place] [address] OFFICE VISIT Date of Service: 02/09/25 MR#: [id number] Acct: [id number] Name: JENA RAMIREZ Rep #: [id number] : 1955 Provider: Letha Emery NP Age/Sex: 69/F [place] [facility] Status: Signed Assessment and Plan Assessment and [...] limb th (more content not included)... Normal [facility] ECHOon 01-21-2025 Echocardiography Echocardiography Report: [facility] Date of service: 01/21/2025 10:25:09 AM INSPECTOR Ordering physician: SHANITA GREEN Indication: Shortness of Breath Technologist: [place]ia Hammonds [facility] Interpreting physician: Rito Lawson MD PATIENT: Name: [...] - Exam was compared with the prior echocardiographic exam performed on 12/31/2023, no significant change. * * * Final * * * [facility] : [id number] amicsSISUID Normal [facility] D/C Summary- SPon 01-18-2025 D/C Summary- SP [facility] Speech Pathology [facility] [address] [place] [address] / REHABILITATION SERVICES DISCHARGE SUMMARY MR#: [id number] Acct: [id number] Name: JENA RAMIREZ Rep #: [id number] : 1955 69 From: Yossi Robison M.A., [facility] Referring Dr.: Dr. Rito Camp MD Status: R EG RCR Insurance: COUNTS INCLUDE 234 BEDS AT THE [facility] PAY [facility]URANCE ST Discharge Summary Discharged: Discharge: Jena Ramirez is discharged from [facility] as of January 18, 2025. She was [...] Dr. Rito Camp MD TAYLOR Signed Normal [facility] CNOVon 01-05-2025 CNOV Office Visit (FAMPWS ) DIONY RAMIREZ ([id number]) 1955 F Date Time Provider Department 01/05/25 10:00 AM [facility] your visit today, we recorded the [...] Undergoing annual monitoring for pulmonary nodules by manager ems. - Recent lung scan performed at the [...] 09/14/2014 See scanned documents - status post ESOPHAGOGASTRODUODENO SCOPY TRANSORAL DIAGNOSTIC 06/27/2016 EGD ESOPHAGOGASTRODUODENO SCOPY TRANSORAL DIAGNOSTIC 06/30/2018 EGD IANDD ABSCESS CMPLX/MULT 07/2013 Epidural abscess- MSSA LIG/TRNSXJ FLP TUBE ABDL/VAG APPR UNI/BI Tubal ligation PAST SURGICAL HISTORY OF spinal surgery PAST SURGICAL HISTORY OF 2/3 (more content not included)... Normal [facility] XR FOOT 3V AP/LAT/OBL RTon 0 - XR FOOT 3V AP/LAT/OBL RT * * *Final Repo rt* * * DATE OF EXAM: Jan 05 [...] No radiographic evidence of acute osseous injury Curator Of Manuscripts: PSCB Transcribe Date/Time: Jan 05 2025 10:54A Dictated by : KATIE WATERS MD This examination was interpreted and the report reviewed and electronically signed by: KATIE WATERS MD on Jan 05 2025 10:55AM EST [id number] N Normal [facility] XR Foot - right AP and Later al and obliqueon 01-05-2025 IMPRESSION: No radiographic evidence of acute osseous injury Curator Of Manuscripts: [facility] Transcribe Date/Time: Jan 05 2025 10:54A Dictated [...] the interphalangeal joints. DIVISION OF RADIOLOGY Provider, [facility] - 01/05/2025 * * *Final Report* * [...] No radiographic evidence of acute osseous injury Curator Of Manuscripts: [facility] Transcribe Date/Time: Jan 05 2025 10:54A Dictated by : KATIE WATERS MD This examination was interpreted and the report reviewed and electronically signed by: KATIE WATERS MD on Jan 05 2025 10:55AM EST [facility] Radiology Study observation (narrative) Carlos Burks XR Foot - right AP and Later al and obliqueOrdered By: Ccf Provider on 01-05-2025 [facility] Low Dose CT Lung Screeningon 01-01-[address] Lung Screening [facility] Imaging Services [address] [place], [place] [address] Low Dose CT Lung Screening MR#: [id number] Acct: [id number] Name: JENA RAMIREZ Rep #: [id number] : 1955 F 69 From: Monico Lopez MD PCP: Dr. Rito Camp MD Status: REG CLI Study: Low Dose CT Lung Screening Date of Exam: 01/01 Exam# [id number] Ordering Dr: Sierra Dee CLEAT FEEDER CLEAT FEEDER-C PROCEDURE: LOW DOSE CT LUNG SCREENING 01/01/2025 REASON FOR EXAM: SMOKER QUIT 2010 TECHNIQUE: Low Dose CT Lung screening without contrast. Coronal and Sagittal reconstruction series were provided. One or more dose reduction techniques were used (e.g., Automated exposure control, adjustment of the mA and/or kV according to patient size, use of iterative reconstruction technique). REFERENCE LINK: ACTV8 Lung-RADS RADIATION DOSE SUMMARY: CTDlvol: 2.0 mGy [...] artery calcification (CAC) is present Reading Location: [facility] CC: TRACI Dee; Dr. Rito Camp MD Curator Of Manuscripts: Signed Normal [facility] BD DXA - AXIAL SKELETONon BD DXA - AXIAL SKELETON * * *Final Repor t* * * DATE OF EXAM: Dec 28 [...] years, Gender: Female SCANNER INFORMATION: DXA Model: [facility] [place] C [address] Date Scanned: 12/28/2024 9:19 AM CLINICAL HISTORY: [...] FOR MORE INFORMATION ABOUT DIAGNOSIS AND TREATMENT: [facility] for Osteoporosis and Metabolic Bone Disease:? www.ccf.org/arthritis /osteo National Osteoporosis Foundation:? www.nof.org International Society of Clinical Densitometry www.iscd.org Curator Of Manuscripts: LEONARDO Transcribe Date/Time: Dec 28 2024 10:04A Dictated by : KATIE WATERS MD This examination was interpreted and the report reviewed and electronically signed by: KATIE WATERS MD on Dec 28 2024 10:06AM EST [id number] N -3.1 Normal [facility] BD DXA TRABECLR BONE SCORE ( TBS)on [...] years, Gender: Female SCANNER INFORMATION: DXA Model: [employer] - Populr C 28039 Date Scanned: 12/28/2024 9:19 AM CLINICAL HISTORY: [...] FOR MORE INFORMATION ABOUT DIAGNOSIS AND TREATMENT: [facility] for Osteoporosis and Metabolic Bone Disease:? www.ccf.org/arthritis /osteo National Osteoporosis Foundation:? www.nof.org International Society of Clinical Densitometry www.iscd.org Curator Of Manuscripts: LEONARDO Transcribe Date/Time: Dec 28 2024 10:04A Dictated by : KATIE WATERS MD This examination was interpreted and the report reviewed and electronically signed by: KATIE WATERS MD on Dec 28 2024 10:06AM EST [id number] N -3.1 Normal [facility] DXA Femur [T-score] Bone nadya hernandez 12-28-2024 * * *Final Report* * * DATE OF EXAM: Dec 28 2024 9:19AM [facility] 0801 - BD DXA TRABECLR BONE SCORE (TBS) / PROCEDURE REASON: Osteoporosis, unspecified osteoporosis type, unspecified pathological fracture p * * * * Physician Interpretation * * * * EXAMINATION: DXA BONE DENSITOMETRY BD DXA - AXIAL SKELETON, BD DXA TRABECLR BONE SCORE (TBS) PATIENT DEMOGRAPHICS: Age: 69 years, Gender: Female SCANNER INFORMATION: DXA Model: [employer] - Populr C 74745 Date Scanned: 12/28/2024 9:19 AM CLINICAL HISTORY: [...] Normal (> 1.310) DIVISION OF RADIOLOGY Provider, [facility] - 12/28/2024 * * *Final Report* * * DATE OF EXAM: Dec 28 2024 9:19AM [facility] 0801 - BD DXA TRABECLR BONE SCORE (TBS) / PROCEDURE REASON: Osteoporosis, unspecified osteoporosis type, unspecified pathological fracture p * * * * Physician Interpretation * * * * EXAMINATION: DXA BONE DENSITOMETRY BD DXA - AXIAL SKELETON, BD DXA TRABECLR BONE SCORE (TBS) PATIENT DEMOGRAPHICS: Age: 69 years, Gender: Female SCANNER INFORMATION: DXA Model: [employer] - Populr C 08161 Date Scanned: 12/28/2024 9:19 AM CLINICAL HISTORY: [...] FOR MORE INFORMATION ABOUT DIAGNOSIS AND TREATMENT: [facility] for Osteoporosis and Metabolic Bone Disease:? www.ccf.org/arthritis /osteo National Osteoporosis Foundation:? www.nof.org International Society of Clinical Densitometry www.iscd.org Curator Of Manuscripts: LEONARDO Transcribe Date/Time: Dec 28 2024 10:04A Dictated by : KATIE WATERS MD This examination was interpreted and the report reviewed and electronically signed by: KATIE WATERS MD on Dec 28 2024 10:06AM EST [facility] DXA Skeletal system.axial Vi ews for bone [...] years, Gender: Female SCANNER INFORMATION: DXA Model: [employer] - [employer] C [address]756 Date Scanned: 12/28/2024 9:19 AM CLINICAL HISTORY: [...] Normal (> 1.310) DIVISION OF RADIOLOGY Provider, [facility] - 12/28/2024 * * *Final Report* * [...] years, Gender: Female SCANNER INFORMATION: DXA Model: [employer] - Populr C 00531 Date Scanned: 12/28/2024 9:19 AM CLINICAL HISTORY: [...] FOR MORE INFORMATION ABOUT DIAGNOSIS AND TREATMENT: [facility] for Osteoporosis and Metabolic Bone Disease:? www.ccf.org/arthritis /osteo National Osteoporosis Foundation:? www.nof.org International Society of Clinical Densitometry www.iscd.org Curator Of Manuscripts: LEONARDO Transcribe Date/Time: Dec 28 2024 10:04A Dictated by : KATIE WATERS MD This examination was interpreted and the report reviewed and electronically signed by: KATIE WATERS MD on Dec 28 2024 10:06AM EST [facility] No Panel InformationOrdered By: [facility] Provider on 12-28-2024 LOWEST T-SCORE -3.1 [facility] No Panel Informationon 12-28 IMPRESSION: THE LOWEST [...] FOR MORE INFORMATION ABOUT DIAGNOSIS AND TREATMENT: [facility] for Osteoporosis and Metabolic Bone Disease:? www.ccf.org/arthritis /osteo National Osteoporosis Foundation:? www.nof.org International Society of Clinical Densitometry www.iscd.org Curator Of Manuscripts: LEONARDO Transcribe Date/Time: Dec 28 2024 10:04A Dictated by : KATIE WATERS MD This examination was interpreted and the report reviewed and electronically signed by: KATIE WATERS MD on Dec 28 2024 10:06AM [facility] Radiology Study observation (narrative) Carlos nguyen [facility] Gastroenterology Visit Repor ton 12-17-2024 Gastroenterology Visit Report [facility] Gastroenterology [address] [place] [address] OFFICE VISIT Date of Service: 12/17/24 MR#: [id number] Acct: [id number] Name: JENA RAMIREZ Rep #: [id number] : 1955 Provider: TRACI neil Age/Sex: 69/F [place] [facility] Status: Signed Intake Vital Signs 09/15/24 08:02 Height 4 ft 9 in Weight: 92 lb BMI 19.9 BP 127/80 H Blood Pressure Location Lt brachial Position Sitting Respiration 20 H Pulse 85 Pulse Source Monitor Temp 97.0 F L Pulse Oximetry (%) 95 Oxygen Delivery Method room air Intake Visit Reasons: Gastroesophageal reflux disease (GERD) Chief Complaint: dysphagia Director Of Dementia Operations Required: No Is patient in pain?: No [...] #5 tabs 12/17/24 12/17/24 Rx peg 3350-sod sulf,riffi-dpc-beu See Rx Instructions PO .COMPLEX #2 12/17/24 12/17/24 Rx 178.7-7.3-0.5-1.12-0. 9 gram oral mL soln (Suflave) Have you fallen in the past year?: No Nurse's Note: Chokes easy. Had a swallow test here in October. [facility] Medical History Vitamin D toxicity Uterine fibroid [...] days of intake. (more content not included)... [facility] 12-02-2024 [facility] Telephone (FAMPWS) DIONY RAMIREZ ([id number]) 1955 F Date Time Provider Department 12/02/24 [facility] During your visit today, we recorded the following information about you: Aury Newton MA 12/02/2024 11:25 AM Signed Scan on 11/30/2024 10:14 AM by Provider, MARICRUZ West[facility]: GI Review results. KATINA Núñez Christopher B, [...] 1 tablet by mouth once daily. - Dextromethorphan-guai FENesin (ROBITUSSIN COUGH-CHEST ESTEFANÍA DM) 5-100 mg/5 mL [...] [R89.2] 06 (more content not included)... [facility] (STEPHANIE) DIONY RAMIREZ ([id number]) 1955 F Date Time Provider Department 12/01/24 [facility] During your visit today, we recorded the following information about you: Kasey Becker LPN 12/01/2024 1:48 PM Signed Patient calling said she had swallowing study done at [facility] on 11/24/2024. She is upset that PCP has not gotten copy of the results yet. She called [facility] med recs dept yesterday and was told being faxed as she was talking to the lady. She talking about bringing her copy to the office and have copy made for PCP. She was told needs Gastro consult, she was hoping to stay with [facility] if PCP wants to give the referral. Please advise Alex Brown APRN.GRAVEL SCREENER 12/01/2024 2:49 PM Signed Please let patient know I have reviewed her swallow study and placed GI referral. Cami Kidd MA 12/01/2024 3:14 PM Signed Pt notified and requested it be sent to Dr jackson office. Faxed info. Cami Kidd MA Allergies As of Date: 12/01/2024 Noted Allergy Reaction FISH 06/23/2005 16 - Unknown HORSE/EQUINE CONTAINING PRODUCTS 08/30/2023 16 - Unknown LISINOPRIL 12/07/2015 3 - Cough SHELLFISH DERIVED 08/30/2023 16 - Unknown Date Reviewed: 10/01/2024 Reviewed by: Rito Camp MD - Fully Assessed Reason for Visit: Patient Question [1477] Primary Visit Diagnosis:GERD without esophagitis [K21.9] Other Visit Diagnosis:Choking in adult [R09.89] Order(s):CONSULT TO GASTROENTEROLOGY [9010] Order #: [id number]: 1 FUTURE Prescriptions as of 12/18/2024 - [...] 1 tablet by mouth once daily. - Dextromethorphan-guai FENesin (ROBITUSSIN COUGH-CHEST ESTEFANÍA DM) 5-100 mg/5 mL [...] (COVI*01/27/2021 M (more content not included)... 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 Barium Swallow Patient Information Study Date: [...] WNL Respiratory Status: Oxygenating on Room Air Penetration-Aspiratio n Scale Penetration-Aspiratio n Scale: OBJECTIVE ASSESSMENT OF SWALLOW FUNCTION (QUANTITATIVE [...] % of the bolus, reduced cough reflex Penetration-Aspiratio n Scale Score Thin Liquid via teaspoon: Result: [...] of greater than half of bolus Bolus Preparation/Masticati on: Disorganized chewing/mashing with solid pieces of bolus unchewed (Timely mastication; however, small pieces of cookie appeared un-chewed.) Bolus Transport/Lingual Motion: Delayed initiation of tongue motion Oral Residue: Residue collection on oral structures Pharyngeal Phase Initiation of Pharyngeal Swallow: Bolus head in pyriforms Soft Palate Elevation: Trace column of contrast/air between soft palate and ph (more content not included)... Normal [facility]20[facility] DIONY RAMIREZ ([id number]) 1955 F Date Time Provider Department 11/04/24 [...] and faxed to Dr. Montilla's office at [phone]. 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 - Dextromethorphan-guai FENesin (ROBITUSSIN COUGH-CHEST ESTEFANÍA DM) 5-100 mg/5 mL [...] [N32.81] 09/01 (more content not included)... Normal [facility] CNPNon 10-26-2024 CNPN Telephone (ADMWST) DIONY RAMIREZ ([id number]) 1955 F Date Time Provider Department 10/26/24 RITO CAMP ADMWST During your visit today, we recorded the following information about you: Truman Campos 10/26/2024 1:21 PM Signed Patient is requesting her HIP xray from 08/03/24 be placed on a disc. Thank you. 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 - Dextromethorphan-guai FENesin (ROBITUSSIN COUGH-CHEST ESTEFANÍA DM) 5-100 mg/5 mL [...] [M25.552] 09/29/2024 (more content not included)... Normal [facility] SP/HP.SP.Soheila 10-20-2024 SP/HP.SP.EV [facility] Speech Pathology [facility] [address] [place] [address] / REHABILITATION SERVICES INITIAL EVALUATION MR#: [id number] Acct: [id number] Name: JENA RAMIREZ Rep #: [id number] : 1955 69 From: Yossi Robison M.A., [facility] Referring Dr.: Dr. 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 Normal [facility] CNTHERAPYon 10-13-2024 CNTHERAPY OT/PT/Speech Visit (PTWS) BASIMDIONY SIMS ([id number]) 1955 F Date Time Provider Department 10/13/24 10:30 AM MARY ANN OSCAR PTWS Date Time Provider Department [place] 10/13/2024 10:30 AM [id number] ANN OSCAR PTWS [place] Reason for Visit: PT Discharge [752] Primary [...] 1 tablet by mouth once daily. - Dextromethorphan-guai FENesin (ROBITUSSIN COUGH-CHEST ESTEFANÍA DM) 5-100 mg/5 mL [...] Tab Take one(1) tablet two(2) times daily. Postbed Stitcher: Addendum Therapy (PT/OT/Speech/Resp) ID: [id number] 10/13/2024 10:48 AM Author: MARY ANN OSCAR Signed by MARY ANN OSCAR PT on 10/13/2024 at 10:48 AM * * * This document replaces document [id number] * * * Document text: Program_ID:[id number] Access Code: [email or web address] URL: [email or web address] [email or web address]/ Date: 10-13-2024 Prepared By: Mary Ann Oscar [...] weekly - 4 sets - 10 reps ----- Normal [facility] THERAPY NTon 10-13-2024 THERAPY NT HNO ID: [id number] Author: MARY ANN OSCAR PT Service: ? Author Type: Physical Therapist Type: Therapy (PT/OT/Speech/Resp) Filed: 10/13/2024 10:48 Note Text: Program_ID:[id number] Access Code: [email or web address] URL: [email or web address]/ Date: 10-13-2024 Prepared By: Mary Ann Oscar [...] - 4 sets - 10 reps Normal [facility] CNOVon 10-01-2024 CN [facility] DIONY RAMIREZ ([id number]) 1955 F Date Time Provider Department 10/01/24 10:00 AM [facility] During your visit today, we recorded the following information about you: Pulse Blood pressure Weight Height 83/minute 138/77 41.5 kg 1.422 m Rito Camp MD 10/01/2024 8:22 PM Signed Ibanswapnil Ortiz Ramirez is a 69 year [...] - General (Family Medicine) Suleman Gustafson as Conservation Science Teacher Alex Brown APRN.LUIS FELIPE as Woven Wood Shade Assembler (Family Medicine) Shanita Green PA-C as Woven Wood Shade Assembler (Family Medicine) Dr. Epstein: Pin management Dr. Shore: Urology and stopped going. Medical/Family history review Reviewed and updated problem list, medical/surgical/fami ly/social history, medications, and allergies. Opioid use review [...] BMI 20.49 kg/m? Vision Screening: Follows with optometry/ophthalmolo gy Assessment/Plan Medicare annual wellness visit, subsequent (Z00.00) [...] Elevated blood sugar 01/27/2021 Emphysema of lung ([facility]) 03/18/2015 Essential hypertension, benign 02/21/2015 Ex-smoker 01/27/2021 [...] by kala (more content not included)... Normal [facility] [id number] 09-29-2024 [id number] HNO ID: [id number] Author: MARY ANN OSCAR, PT Service: ? Author Type: Physical Therapist Type: [id number] Filed: 09/29/2024 12:43 Note Text: [facility] Rehabilitation [facility] Sports Therapy Physical Therapy Plan of Care Certification Patient Name: Diony Ramirez : 1955 [facility] #: [id number] Date: 09/29/2024 To: Shanita Green PA-C From Therapist: Mary Ann Oscar, PT RE: Patient Certification/ Recertification Your review, approval and electronic signature are required in order to comply with Payor: COUNTS INCLUDE 234 BEDS AT THE [facility] [employer] / Plan: AN[employer]M MEDICARE ADVANTAGE HMO / [...] Planned: 6 Planned Treatment Interventions: Therapeutic exercise (03790), Neuromuscular re-education (01391), Manual therapy (70870), Therapeutic activities (57809), Self-half-way management (46092), Gait Training (25434) PLAN FOR NEXT VISIT: Pt. has $35 [...] reviewed the treatment plan for Diony Ramirez, [facility]# [id number] for the period of 09/29/24 -- 11/10/24, established on 09/29/2024. Signature certifies the need for therapy services. Normal [facility] CNTHERAPYon 09-29-2024 CNTHERAPY OT/PT/Speech Visit (PTWS) DIONY RAMIREZ ([id number]) 1955 F Date Time Provider Department 09/29/24 12:00 PM MARY ANN OSCAR PTWS Date Time Provider Department Center 09/29/2024 12:00 PM [id number]-ZMARY ANN OSCAR PTRAMIREZ [employer] Reason for Visit: PT Eval [747] Primary Visit Diagnosis:Pain in left hip [M25.552] Allergies As of Date: 09/29/2024 Noted Allergy Reaction FISH 06/23/2005 16 - Unknown HORSE/EQUINE CONTAINING PRODUCTS 08/30/2023 16 - Unknown LISINOPRIL 12/07/2015 3 - Cough SHELLFISH DERIVED 08/30/2023 16 - Unknown Date Reviewed: 08/03/2024 Reviewed by: Cami Kidd MA - Fully Assessed Prescriptions as of 09/29/2024 - Dextromethorphan-guai FENesin (ROBITUSSIN COUGH-CHEST ESTEFANÍA DM) 5-100 mg/5 mL [...] Tab Take one(1) tablet two(2) times daily. Postbed Stitcher: Therapy (PT/OT/Speech/Resp) ID: [id number] 09/29/2024 12:26 PM Author: MARY ANN OSCAR Signed by MARY ANN OSCAR PT on 09/29/2024 at 12:26 PM Document text: Program_ID:[id number] Access Code: [email or web address] URL: [email or web address] Date: 09-29-2024 Prepared By: Mary Ann Oscar [...] weekly - 2 sets - 5 reps ----- Normal [facility] THERAPY NTon 09-29-2024 THERAPY NT HNO ID: [id number] Author: MARY ANN OSCAR, KIMANI Service: ? Author Type: Physical Therapist Type: Therapy (PT/OT/Speech/Resp) Filed: 09/29/2024 12:26 Note Text: Program_ID:[id number] Access Code: [email or web address] URL: [email or web address] [email or web address]/ Date: 09-29-2024 Prepared By: Mary Ann Oscar [...] - 2 sets - 5 reps Normal [facility] 25(OH)D3 [facility] 20[facility] 25-hydroxyvitamin D3 [Mass/Vol] 57.6 ng/mL Normal 31.0-80.0 [facility] Comment on above: Order Comment: Speci men Type: BLOOD SPECIMENOrdering Facility: [facility] Address: [address] [place] [address] Result Comment: Clas sification of 25 [place] Vitamin D status: Deficiency/Insufficiency: < or = 30 ng/ml. Sufficiency/Optimal Levels: 31-80 ng/mL Toxicity: > 100 ng/mL. Test performed by chemiluminescent immunoassay. Performed By: #### 1 989-3 ####[facility] LABCLIA [id number] [place] [address] [place] CBC W Auto Differential pane l (Bld)on 09-24-2024 Basophils (Bld) [#/Vol] 0.09 10*3/uL Normal <0.11 [facility] Comment on above: Order Comment: Speci men Type: BLOOD SPECIMENOrdering Facility: [facility] Address: [address] [place] [address] Performed By: #### 5 7021-8 ####[facility] LABCLIA [id number] [place] [address] [place] Basophils/100 WBC (Bld) 1.4 % Normal [facility] Comment on above: Order Comment: Speci men Type: BLOOD SPECIMENOrdering Facility: [facility] Address: [address] [place] [address] Performed By: #### 5 7021-8 ####[facility] LABCLIA [id number] [place] [address] [place] Differential cell count method Nom (Bld) Auto Normal [facility] Comment on above: Order Comment: Speci men Type: BLOOD SPECIMENOrdering Facility: [facility] Address: [address] [place] [address] Performed By: #### 5 7021-8 ####[facility] LABCLIA [id number] [place] [address] [place] Eosinophils (Bld) [#/Vol] 0.21 10*3/uL Normal <0.46 [facility] Comment on above: Order Comment: Speci men Type: BLOOD SPECIMENOrdering Facility: [facility] Address: [address] [place] [address] Performed By: #### 5 7021-8 ####[facility] LABCLIA [id number] [place] [address] [place] Eosinophils/100 WBC (Bld) 3.2 % Normal [facility] Comment on above: Order Comment: Speci men Type: BLOOD SPECIMENOrdering Facility: [facility] Address: [address] [place] [address] Performed By: #### 5 7021-8 ####[facility] LABCLIA [id number] [place] [address] [place] Erythrocyte distribution width (RBC) [Ratio] 12.8 % Normal 11.5-15.0 [facility] Comment on above: Order Comment: Speci men Type: BLOOD SPECIMENOrdering Facility: [facility] Address: [address] [place] [address] Performed By: #### 5 7021-8 ####[facility] LABCLIA [id number] [place] [address] [place] Hematocrit (Bld) [Volume fraction] 45.3 % Normal 36.0-46.0 [facility] Comment on above: Order Comment: Speci men Type: BLOOD SPECIMENOrdering Facility: [facility] Address: [address] [place] [address] Performed By: #### 5 7021-8 ####[facility] LABCLIA [id number] [place] [address] [place] Hemoglobin (Bld) [Mass/Vol] 14.7 g/dL Normal 11.5-15.5 [facility] Comment on above: Order Comment: Speci men Type: BLOOD SPECIMENOrdering Facility: [facility] Address: [address] [place] [address] Performed By: #### 5 7021-8 ####[facility] LABCLIA [id number] [place] [address] [place] Immature granulocytes (Bld) [#/Vol] 10*3/uL Normal <0.10 [facility] Comment on above: Order Comment: Speci men Type: BLOOD SPECIMENOrdering Facility: [facility] Address: [address] [place] [address] Performed By: #### 5 7021-8 ####[facility] LABCLIA [id number] [place] [address] [place] Immature granulocytes/100 WBC (Bld) 0.3 % Normal [facility] Comment on above: Order Comment: Speci men Type: BLOOD SPECIMENOrdering Facility: [facility] Address: [address] [place] [address] Performed By: #### 5 7021-8 ####[facility] LABCLIA [id number] [place] [address] [place] Lymphocytes (Bld) [#/Vol] 1.58 10*3/uL Normal 1.00-4.00 [facility] Comment on above: Order Comment: Speci men Type: BLOOD SPECIMENOrdering Facility: [facility] Address: [address] [place] [address] Performed By: #### 5 7021-8 ####[facility] LABCLIA [id number] [place] [address] [place] Lymphocytes/100 WBC (Bld) 24.1 % Normal [facility] Comment on above: Order Comment: Speci men Type: BLOOD SPECIMENOrdering Facility: [facility] Address: [address] [place] [address] Performed By: #### 5 7021-8 ####[facility] LABCLIA [id number] [place] [address] [place] MCH (RBC) [Entitic mass] 33.1 pg Normal 26.0-34.0 [facility] Comment on above: Order Comment: Speci men Type: BLOOD SPECIMENOrdering Facility: [facility] Address: [address] [place] [address] Performed By: #### 5 7021-8 ####[facility] LABCLIA [id number] [place] [address] [place] MCHC (RBC) [Mass/Vol] 32.5 g/dL Normal 30.5-36.0 [facility] Comment on above: Order Comment: Speci men Type: BLOOD SPECIMENOrdering Facility: [facility] Address: [address] [place] [address] Performed By: #### 5 7021-8 ####[facility] LABIA [id number] [place] [address] [place] MCV (RBC) [Entitic vol] 102.0 fL High 80.0-100.0 C [facility] Comment on above: Order Comment: Speci men Type: BLOOD SPECIMENOrdering Facility: [facility] Address: [address] [place] [address] Performed By: #### 5 7021-8 ####[facility] LABIA [id number] [place] [address] [place] Monocytes (Bld) [#/Vol] 0.62 10*3/uL Normal <0.87 [facility] Comment on above: Order Comment: Speci men Type: BLOOD SPECIMENOrdering Facility: [facility] Address: [address] [place] [address] Performed By: #### 5 7021-8 ####[facility] LABIA [id number] [place] [address] [place] Monocytes/100 WBC (Bld) 9.5 % Normal C [facility] Comment on above: Order Comment: Speci men Type: BLOOD SPECIMENOrdering Facility: [facility] Address: [address] [place] [address] Performed By: #### 5 7021-8 ####[facility] LABCLIA [id number] [place] [address] [place] Neutrophils (Bld) [#/Vol] 4.03 10*3/uL Normal 1.45-7.50 [facility] Comment on above: Order Comment: Speci men Type: BLOOD SPECIMENOrdering Facility: [facility] Address: [address] [place] [address] Performed By: #### 5 7021-8 ####[facility] LABCLIA [id number] [place] [address] [place] Neutrophils/100 WBC (Bld) 61.5 % Normal [facility] Comment on above: Order Comment: Speci men Type: BLOOD SPECIMENOrdering Facility: [facility] Address: [address] [place] [address] Performed By: #### 5 7021-8 ####[facility] LABCLIA [id number] [place] [address] [place] Nucleated RBC (Bld) [#/Vol] 10*3/uL Normal <0.01 [facility] Comment on above: Order Comment: Speci men Type: BLOOD SPECIMENOrdering Facility: [facility] Address: [address] [place] [address] Performed By: #### 5 7021-8 ####[facility] LABIA [id number] [place] [address] [place] Nucleated RBC/100 WBC (Bld) [Ratio] 0.0 /100 WBC Normal [facility] Comment on above: Order Comment: Speci men Type: BLOOD SPECIMENOrdering Facility: [facility] Address: [address] [place] [address] Performed By: #### 5 7021-8 ####[facility] LABIA [id number] [place] [address] [place] Platelet mean volume (Bld) [Entitic vol] 9.6 fL Normal 9.0-12.7 [facility] Comment on above: Order Comment: Speci men Type: BLOOD SPECIMENOrdering Facility: [facility] Address: [address] [place] [address] Performed By: #### 5 7021-8 ####[facility] LABCLIA [id number] [place] [address] [place] Platelets (Bld) [#/Vol] 293 10*3/uL Normal 150-400 [facility] Comment on above: Order Comment: Speci men Type: BLOOD SPECIMENOrdering Facility: [facility] Address: [address] [place] [address] Performed By: #### 5 7021-8 ####[facility] LABCLIA [id number] [address] [address] [place] RBC (Bld) [#/Vol] 4.44 10*6/uL Normal 3.90-5.20 [facility] Comment on above: Order Comment: Speci men Type: BLOOD SPECIMENOrdering Facility: [facility] Address: [address] [place] [address] Performed By: #### 5 7021-8 ####[facility] LABCLIA [id number] [place] [address] [place] WBC (Bld) [#/Vol] 6.55 10*3/uL Normal 3.70-11.00 [facility] Comment on above: Order Comment: Speci men Type: BLOOD SPECIMENOrdering Facility: [facility] Address: [address] [place] [address] Performed By: #### 5 7021-8 ####[facility] LABIA [id number] [place] [address] [place] Comprehensive metabolic 2000 panelon 09-24-2024 Albumin [Mass/Vol] 4.1 g/dL Normal 3.9-4.9 [facility] Comment on above: Order Comment: Speci men Type: BLOOD SPECIMENOrdering Facility: [facility] Address: [address] [place] [address] Performed By: #### 2 4323-8, 2132-9 ####[facility] LABCLIA [id number] [place] [address] [place] ALP [Catalytic activity/Vol] 66 U/L Normal 34-123 [facility] Comment on above: Order Comment: Speci men Type: BLOOD SPECIMENOrdering Facility: [facility] Address: [address] [id number] Performed By: #### 2 43211-07, 2132-05 ####[facility] LABCLIA [id number] [address] [address] [place] ALT [Catalytic activity/Vol] 15 U/L Normal 7-38 [facility] Comment on above: Order Comment: Speci men Type: BLOOD SPECIMENOrdering Facility: [facility] Address: [address] [id number] Performed By: #### 2 4323-04, 2132-05 ####[facility] LABCLIA [id number] [place] [address] [place] Anion gap [Moles/Vol] 10 mmol/L Normal 8-15 [facility] Comment on above: Order Comment: Speci men Type: BLOOD SPECIMENOrdering Facility: [facility] Address: [address] [place] [address] Performed By: #### 2 4323-04, 2132-05 ####[facility] LABCLIA [id number] [place] [address] [place] AST [Catalytic activity/Vol] 23 U/L Normal 13-35 [facility] Comment on above: Order Comment: Speci men Type: BLOOD SPECIMENOrdering Facility: [facility] Address: [address] [id number] Performed By: #### 2 4323-04, 2132-05 ####[facility] LABCLIA [id number] [place] [address] [place] Bilirubin [Mass/Vol] 0.5 mg/dL Normal 0.2-1.3 [facility] Comment on above: Order Comment: Speci men Type: BLOOD SPECIMENOrdering Facility: [facility] Address: [address] [place], [place] [address] Performed By: #### 2 4323-04, 2132-05 ####[facility] LABCLIA [id number] [facility] [address] [address] [place] Calcium [Mass/Vol] 8.8 mg/dL Normal 8.5-10.2 [facility] Comment on above: Order Comment: Speci men Type: BLOOD SPECIMENOrdering Facility: [facility] Address: [address] [place], [place] [address] Performed By: #### 2 4323-04, 2132-05 ####[facility] LABCLIA [id number] [facility] [place] [id number] [place] Chloride [Moles/Vol] 101 mmol/L Normal 98-107 [facility] Comment on above: Order Comment: Speci men Type: BLOOD SPECIMENOrdering Facility: [facility] Address: [address] [place] [address] Performed By: #### 2 4323-04, 2132-05 ####[facility] LABCLIA [id number] [place] [address] [place] CO2 [Moles/Vol] 26 mmol/L Normal 22-30 [facility] Comment on above: Order Comment: Speci men Type: BLOOD SPECIMENOrdering Facility: [facility] Address: [address] [place], [place] [address] Performed By: #### 2 4323-04, 2132-05 ####[facility] LABCLIA [id number] [place] [address] [place] Creatinine [Mass/Vol] 0.67 mg/dL Normal 0.58-0.96 [facility] Comment on above: Order Comment: Speci men Type: BLOOD SPECIMENOrdering Facility: [facility] Address: [address] [place], [place] [address] Performed By: #### 2 43211-07, 2132-05 ####[facility] LABCLIA [id number] [place] [address] [place] Creatinine and Glomerular filtration rate.predicted panel (S/P/Bld) 95 mL/min/1.73m??? Normal >=60 [facility] Comment on above: Order Comment: Crow chavarria Type: BLOOD SPECIMENOrdering Facility: [facility] Address: [address] [place] [address] Result Comment: Marlin mated Glomerular Filtration Rate [...] reflect actual GFR. Performed By: #### 2 4322-8, 2132-05 ####[facility] LABCLIA [id number] [place] [address] [place] Glucose [Mass/Vol] 90 mg/dL Normal 74-99 [facility] Comment on above: Order Comment: Crow chavarria Type: BLOOD SPECIMENOrdering Facility: [facility] Address: [address] [place] [address] Result Comment: The [place] Diabetes Association (ADA) provides guidance for cutoff [...] Standards of Medical Care in Diabetes 2016, [place] Diabetes Association. Diabetes Care. 2016.39(Suppl 1). Performed By: #### 2 4323-8, 2132-05 ####[facility] LABCLIA [id number] [place] [address] [place] Potassium [Moles/Vol] 4.1 mmol/L Normal 3.7-5.1 [facility] Comment on above: Order Comment: Speci men Type: BLOOD SPECIMENOrdering Facility: [facility] Address: [address] [id number] Performed By: #### 2 4323-04, 2132-05 ####[facility] LABCLIA [id number] [address] [address] [place] Protein [Mass/Vol] 6.5 g/dL Normal 6.3-8.0 [facility] Comment on above: Order Comment: Speci men Type: BLOOD SPECIMENOrdering Facility: [facility] Address: [address] [place], [place] [address] Performed By: #### 2 4323-04, 2132-05 ####[facility] LABCLIA [id number] [place] [address] [place] Sodium [Moles/Vol] 137 mmol/L Normal 136-144 [facility] Comment on above: Order Comment: Speci men Type: BLOOD SPECIMENOrdering Facility: [facility] Address: [address] [place], [place] [address] Performed By: #### 2 4323-04, 2132-05 ####[facility] LABCLIA [id number] [place] [address] [place] Urea nitrogen [Mass/Vol] 14 mg/dL Normal 7-21 [facility] Comment on above: Order Comment: Speci men Type: BLOOD SPECIMENOrdering Facility: [facility] Address: [address] [place], [place] [address] Performed By: #### 2 4323-04, 2132-05 ####[facility] LABCLIA [id number] [place] [address] [place] HbA1c (Bld)on 09-24-2024 Average glucose Estimated from glycated hemoglobin (Bld) [Mass/Vol] 94 mg/dL Normal [facility] Comment on above: Order Comment: Speci men Type: BLOOD SPECIMENOrdering Facility: [facility] Address: [address] [place] [address] Result Comment: eAG: (Estimated average glucose) is a calculated value from HgbA1c and is phone representative of the average blood glucose level in the last 2-3 month period. Performed By: #### 5 5454-3 ####[facility] LABCLIA [id number] [place] [address] [place] HbA1c (Bld) [Mass fraction] 4.9 % Normal 4.3-5.6 [facility] Comment on above: Order Comment: Speci men Type: BLOOD SPECIMENOrdering Facility: [facility] Address: [address] [place] [address] Result Comment: Amer [place] Diabetes Association guidelines indicate that patients with HgbA1c in the range 5.7-6.4% are at increased risk for development of diabetes, and intervention by lifestyle modification may be beneficial. HgbA1c greater or equal to 6.5% is considered diagnostic of diabetes. Performed By: #### 5 5454-3 ####[facility] LABIA [id number] [place] [address] [place] Iron and Iron binding capaci ty panelon 09-24-2024 Iron [Mass/Vol] 96 ug/dL Normal 41-186 [facility] Comment on above: Order Comment: Speci men Type: BLOOD SPECIMENOrdering Facility: [facility] Address: [address] [place] [address] Performed By: #### L IPNF, 90522-5, 6-3, 22165-9 ####[facility] LABCLIA [id number] [place] [address] [place] Iron binding capacity [Mass/Vol] 391 ug/dL High 232-386 [facility] Comment on above: Order Comment: Speci men Type: BLOOD SPECIMENOrdering Facility: [facility] Address: [address] [place] [address] Performed By: #### L IPNF, 01406-5, 6-3, 77704-2 ####[facility] LABCLIA [id number] [place] [address] [place] Iron/TIBC [Molar ratio] 24.6 % Normal 15.0-57.0 C [facility] Comment on above: Order Comment: Speci men Type: BLOOD SPECIMENOrdering Facility: [facility] Address: [address] [place] [address] Performed By: #### L CECILIA, 00893-9, 3015-3, 03728-8 ####[facility] LABCLIA [id number] [place] [address] [place] LIPID PANEL, NONFASTINGon Cholesterol [Mass/Vol] 193 mg/dL Normal <200 [facility] Comment on above: Order Comment: Speci men Type: BLOOD SPECIMENOrdering Facility: [facility] Address: [address] [place] [address] Result Comment: <200 mg/dL, Desirable 200-239 mg/dL, Borderline high >239 mg/dL, High Performed By: #### L CECILIA, , 3015-3, 35769-4 ####[facility] LABCLIA [id number] [place] [address] [place] HDL CHOLESTEROL, NF 99 mg/dL Normal >39 [facility] Comment on above: Order Comment: Speci men Type: BLOOD SPECIMENOrdering Facility: [facility] Address: [address] [place] [address] Result Comment: 40-5 9 mg/dL, Acceptable >59 mg/dL, High: Negative risk factor for coronary heart disease <40 mg/dL, Low: Positive risk factor for coronary heart disease Performed By: #### L CECILIA, , 3015-3, 72399-5 ####[facility] LABCLIA [id number] [place] [address] [place] LDL CHOLESTEROL, NF 79 mg/dL Normal <100 [facility] Comment on above: Order Comment: Speci men Type: BLOOD SPECIMENOrdering Facility: [facility] Address: [address] [place] [address] Result Comment: <100 mg/dL, Optimal 100-129 mg/dL, Near optimal/above optimal 130-159 mg/dL, Borderline high 160-189 mg/dL, High >189 mg/dL, Very high Secondary prevention optimal LDL Cholesterol levels are recommended to be < 70 mg/dL Performed By: #### L IPMARIA L, , 6-3, 40790-1 ####[facility] LABCLIA [id number] [address] [place] LDL/HDL RATIO, NF 0.80 mg/dL Normal <2.54 [facility] Comment on above: Order Comment: [facility] Type: BLOOD SPECIMENOrdering Facility: [facility] Address: [address] [place] [address] Result Comment: Refe rence: 1. National Cholesterol Education Program ATP III Guideline At-A-Glance Quick Desk Reference: National Heart, Lung, and Blood [place]. National Institutes of Health. 2001: NIH Publication No. 01-3305. 2. An International Atherosclerosis Society position paper: global recommendations for the management of dyslipidemia: executive summary, Atherosclerosis. 2014: 232(2):410-413. Performed By: #### L CECILIA, , 3015-3, 65305-8 ####[facility] LABCLIA [id number] [place] [address] [place] NON HDL CHOL, NF 94 mg/dL Normal <130 [facility] Comment on above: Order Comment: Crow [facility] Type: BLOOD SPECIMENOrdering Facility: [facility] Address: [address] [place] [address] Result Comment: <130 mg/dL, Optimal 130-159 mg/dL, Near optimal/above optimal 160-189 mg/dL, Borderline high 190-219 mg/dL, High >219 mg/dL, Very high Secondary prevention optimal non HDL Cholesterol levels are recommended to be <100 mg/dL Performed By: #### L IPNF, , 3015-3, 46738-2 ####[facility] LABCLIA [id number] [place] [address] [place] T CHOL/HDL RATIO NF 1.95 mg/dL Normal <5.10 [facility] Comment on above: Order Comment: Speci men Type: BLOOD SPECIMENOrdering Facility: [facility] Address: [address] [place] [address] Performed By: #### L IPNF, , 3015-3, 31346-6 ####[facility] LABCLIA [id number] [place] [address] [place] TRIGLYCERIDES, NF 76 mg/dL Normal <150 [facility] Comment on above: Order Comment: Speci men Type: BLOOD SPECIMENOrdering Facility: [facility] Address: [address] [place] [address] Result Comment: <150 mg/dL, Normal 150-199 mg/dL, Borderline high 200-499 mg/dL, High >499 mg/dL, Very high Performed By: #### L IPNF, , 3, 96116-9 ####[facility] LABCLIA [id number] [place] [address] [place] VLDL CHOLESTEROL, NF 15 mg/dL Normal <30 [facility] Comment on above: Order Comment: Speci men Type: BLOOD SPECIMENOrdering Facility: [facility] Address: [address] [place] [address] Performed By: #### L IPNF, , 3, 19464-5 ####[facility] LABCLIA [id number] [place] [address] [place] Magnesium SerPl-mCncon 09-24 Magnesium [Mass/Vol] 2.2 mg/dL Normal 1.7-2.3 [facility] Comment on above: Order Comment: Speci men Type: BLOOD SPECIMENOrdering Facility: [facility] Address: [address] [place] [address] Performed By: #### L IPNF, 11323-7, 3016-3, 26283-1 ####[facility] LABCLIA [id number] [place] [address] [place] TSH SerPl-aCncon 09-24-2024 TSH Qn 1.160 m[IU]/L Normal 0.270-4.200 [facility] Comment on above: Order Comment: Speci men Type: BLOOD SPECIMENOrdering Facility: [facility] Address: [address] [place] [address] Performed By: #### L IPNF, 90367-3, 3016-3, 54651-8 ####[facility] LABIA [id number] [place] [address] [place] Urinalysis complete panel (U )on 09-24-2024 Bacteria LM.HPF (Urine sed) [#/Area] Negative Normal Negative [facility] Comment on above: Order Comment: Speci men Type: URINE SPECIMENOrdering Facility: [facility] Address: [address] [place] [address] Performed By: #### 2 4356-8 ####[facility] LABIA [id number] [place] [address] [place] Bilirubin Ql (U) Negative Normal Negative [facility] Comment on above: Order Comment: Speci men Type: URINE SPECIMENOrdering Facility: [facility] Address: [address] [place] [address] Performed By: #### 2 4356-8 ####[facility] LABIA [id number] [place] [address] [place] Clarity (Unsp spec) Clear Normal Clear [facility] Comment on above: Order Comment: Speci men Type: URINE SPECIMENOrdering Facility: [facility] Address: [address] [place] [address] Performed By: #### 2 4356-8 ####[facility] LABCLIA [id number] [place] [address] [place] Color (U) Yellow Normal Yellow [facility] Comment on above: Order Comment: Speci men Type: URINE SPECIMENOrdering Facility: [facility] Address: [address] [place] [address] Performed By: #### 2 4356-8 ####[facility] LABCLIA [id number] [place] [address] [place] Epithelial cells LM.HPF (Urine sed) [#/Area] None Seen Normal [facility] Comment on above: Order Comment: Speci men Type: URINE SPECIMENOrdering Facility: [facility] Address: [address] [place] [address] Performed By: #### 2 4356-8 ####[facility] LABCLIA [id number] [address] [place] Glucose Test strip (U) [Mass/Vol] Negative Normal Negative [facility] Comment on above: Order Comment: Speci men Type: URINE SPECIMENOrdering Facility: [facility] Address: [address] [place] [address] Performed By: #### 2 4356-8 ####[facility] LABIA [id number] [place] [address] [place] Hemoglobin Ql (U) Negative Normal Negative [facility] Comment on above: Order Comment: Speci men Type: URINE SPECIMENOrdering Facility: [facility] Address: [address] [place] [address] Performed By: #### 2 4356-8 ####[facility] LABCLIA [id number] [place] [address] [place] Hyaline casts (Urine sed) [#/Area] 0 /[LPF] Normal 0 /LPF [facility] Comment on above: Order Comment: Speci men Type: URINE SPECIMENOrdering Facility: [facility] Address: [address] [place] [address] Performed By: #### 2 4356-8 ####[facility] LABCLIA [id number] [place] [address] [place] Ketones Ql (U) Negative Normal Negative [facility] Comment on above: Order Comment: Speci men Type: URINE SPECIMENOrdering Facility: [facility] Address: [address] [place] [address] Performed By: #### 2 4356-8 ####[facility] LABCLIA [id number] [place] [address] [place] Leukocyte esterase Test strip Ql (U) Negative Normal Negative [facility] Comment on above: Order Comment: Speci men Type: URINE SPECIMENOrdering Facility: [facility] Address: [address] [place] [address] Performed By: #### 2 4356-8 ####[facility] LABCLIA [id number] [place] [address] [place] Nitrite Ql (U) Negative Normal Negative [facility] Comment on above: Order Comment: Speci men Type: URINE SPECIMENOrdering Facility: [facility] Address: [address] [place] [address] Performed By: #### 2 4356-8 ####[facility] LABCLIA [id number] [place] [address] [place] pH (U) 8.5 [pH] High <8.5 [facility] Comment on above: Order Comment: Speci men Type: URINE SPECIMENOrdering Facility: [facility] Address: [address] [place] [address] Performed By: #### 2 4356-8 ####[facility] LABCLIA [id number] [place] [address] [place] Protein (U) [Mass/Vol] Trace Abnormal Negative [facility] Comment on above: Order Comment: Speci men Type: URINE SPECIMENOrdering Facility: [facility] Address: [address] [place] [address] Performed By: #### 2 4356-8 ####[facility] LABIA [id number] [place] [address] [place] RBC LM.HPF (Urine sed) [#/Area] 0-2 /HPF Normal 0-2 /HPF [facility] Comment on above: Order Comment: Speci men Type: URINE SPECIMENOrdering Facility: [facility] Address: [address] [place] [address] Performed By: #### 2 4356-8 ####[facility] [id number] [place] [address] [place] Specific gravity (U) [Rel density] 1.015 Normal 1.005-1.030 [facility] Comment on above: Order Comment: Speci men Type: URINE SPECIMENOrdering Facility: [facility] Address: [address] [place] [address] Performed By: #### 2 4356-8 ####[facility] [id number] [place] [address] [place] Urobilinogen Ql (U) 0.2 EU/dL Normal 0.2-1.0 EU/dL [facility] Comment on above: Order Comment: Speci men Type: URINE SPECIMENOrdering Facility: [facility] Address: [address] [place] [address] Performed By: #### 2 4356-8 ####[facility] LABIA [id number] [place] [address] [place] WBC LM.HPF (Urine sed) [#/Area] 0-5 /HPF Normal 0-5 /HPF [facility] Comment on above: Order Comment: Speci men Type: URINE SPECIMENOrdering Facility: [facility] Address: [address] [place] [address] Performed By: #### 2 4356-8 ####[facility] LABCLIA [id number] [place] [address] [place] Vit B12 SerPl-mCncon 01-23-2 025 Cobalamin (Vitamin B12) [Mass/Vol] 1367 pg/mL High 232-1245 [facility] Comment on above: Order Comment: Speci men Type: BLOOD SPECIMENOrdering Facility: [facility] Address: [address] [place] [address] Performed By: #### 2 4323-8, 2132-9 ####[facility] LABCLIA [id number] [address] [place] CNPKinsey 09-15-2024 CNPN Telephone (FAMPWS) DIONY RAMIREZ ([id number]) 1955 F Date Time Provider Department 09/15/24 [facility] During your visit today, we recorded the following information about you: Kasey Becker LPN 09/15/2024 1:12 PM Signed Patient calling she had appt today in Pulmonary office with Letha Emeyr CLEAT FEEDER at Dr uSleman Gustafson office. Asking for a copy of the CR Chest report faxed to [phone]. Printed report from 12/2022 and faxed as requested. Allergies As of Date: 09/15/2024 Noted Allergy Reaction FISH 06/23/2005 16 - Unknown HORSE/EQUINE CONTAINING PRODUCTS 08/30/2023 16 - Unknown LISINOPRIL 12/07/2015 3 - Cough SHELLFISH DERIVED 08/30/2023 16 - Unknown Date Reviewed: 08/03/2024 Reviewed by: Cami Kidd MA - Fully Assessed Reason for Visit: fax copy of CT Chest to Pulmonary Dr Suleman Gustafson office [Other] Prescriptions as of 09/15/2024 - Dextromethorphan-guai FENesin (ROBITUSSIN COUGH-CHEST ESTEFANÍA DM) 5-100 mg/5 mL [...] Encounter Status:Closed by KASEY BECKER on 09/15/24 Normal [facility] Pulmonary Visit Reporton Pulmonary Visit Report [facility] of [address] [place] [address] OFFICE VISIT Date of Service: 09/15/24 MR#: [id number] Acct: [id number] Name: JENA RAMIREZ Rep #: [id number] : 1955 Provider: Letha Emery NP Age/Sex: 69/F [facility]: Signed Assessment and Plan Assessment and [...] asthma a (more content not included)... 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] Ex-smoker [Z87.891] GERD without esophagitis [K21.9] Heavy alcohol use [F10.90] Multiple thyroid nodules [E04.2] Elevated blood sugar [R73.9] Medication management [Z79.899] Essential hypertension, benign [I10] Osteoporosis, unspecified osteoporosis type, unspecified pathological fracture presence [M81.0] Order(s):VITAMIN B12 [SQB12] Order #: [id number] FUTURE COMPREHENSIVE METABOLIC PANEL [SQCMP] Order #: [id number] FUTURE THYROID STIMULATING HORMONE [SQTSH] Order #: [id number] FUTURE URINALYSIS, WITH MICROSCOPIC [SQUAWMIC] Order #: [id number] FUTURE LIPID PANEL, NONFASTING [SQLIPNF] Order #: [id number] FUTURE MAGNESIUM [SQMG1] Order #: [id number] FUTURE COMPLETE BLOOD COUNT AND DIFFERENTIAL [SQCBCDIF] Order #: [id number] FUTURE HEMOGLOBIN A1C [INHTC6V] Order #: [id number] FUTURE IRON AND TIBC [SQIRON] Order #: [id number] FUTURE VITAMIN D 25 HYDROXY [SQVITD] Order #: [id number] FUTURE Prescriptions as of 09/08/2024 - Dextromethorphan-guai FENesin (ROBITUSSIN COUGH-CHEST ESTEFANÍA DM) 5-100 mg/5 mL [...] [N32.81] 09/01/2015 HSV (herpes simplex virus) anogenital infection*06/ (more content not included)... Normal [facility] CNPNon 08-05-2024 [facility] DIONY RAMIREZ ([id number]) 1955 F Date Time Provider Department 08/05/24 [facility] During your visit today, we recorded [...] - Unknown Date Reviewed: 08/03/2024 Reviewed by: Cami Kidd MA - Fully Assessed Reason for Visit: Results [95] Primary Visit Diagnosis:Left hip pain [M25.552] Order(s):CONSULT TO PHYSICAL THERAPY [9032] Order #: [id number]: 1 FUTURE Prescriptions as of 08/07/2024 - predniSONE (DELTASONE) 10 mg tablet Take 3 tablets by mouth once daily for 3 days, THEN 2 tablets once daily for 3 days, THEN 1 tablet once daily for 3 days. - doxycycline (VIBRA-TABS) 100 mg tablet Take 1 tablet by mouth two times a day for 7 days. - Dextromethorphan-guai FENesin (ROBITUSSIN COUGH-CHEST ESTEFANÍA DM) 5-100 mg/5 mL [...] sugar [R73.9] 01/27/2021 Abnormal toxicological findings [R89.2] (more content not included)... Normal [facility] CNOVon 08-03-2024 CNOV Office Visit (FAMPWS ) DIONY RAMIREZ ([id number]) 1955 F Date Time Provider Department 08/03/24 9:20 AM ALEX BROWNWS During your visit today, we recorded the following information about you: Pulse Blood pressure Weight 79/minute 135/78 41.7 kg Alex Brown, ALAN.GRAVEL SCREENER 08/03/2024 9:31 AM Signed Chief Complaint Patient [...] 09/14/2014 See scanned documents - status post ESOPHAGOGASTRODUODENO SCOPY TRANSORAL DIAGNOSTIC 06/27/2016 EGD ESOPHAGOGASTRODUODENO SCOPY TRANSORAL DIAGNOSTIC 06/30/2018 EGD IANDD ABSCESS CMPLX/MULT [...] two times a day for 7 days. Dextromethorphan-guai FENesin (ROBITUSSIN COUGH-CHEST ESTEFANÍA DM) 5-100 mg/5 mL [...] Take 1 (more content not included)... Normal [facility] XR HIP 3V PELV+ AP/LAT LTon 08-03-2024 [...] lumbar spine. IMPRESSION: Mild left hip osteoarthritis. Curator Of Manuscripts: PSCB Transcribe Date/Time: Aug 05 2024 5:42A Dictated by : CATHLEEN KYLE MD This examination was interpreted and the report reviewed and electronically signed by: CATHLEEN KYLE MD on Aug 05 2024 5:42AM EST [id number] Normal [facility] CNOVon 07-31-2024 CNOV Office Visit (UCWSTR ) DIONY RAMIREZ ([id number]) 1955 F Date Time Provider Department 07/31/24 10:45 AM SHANNA NEWTON WSTR During your visit today, we recorded the following information about you: Temperature Pulse Respiration Blood pressure 99.3 degrees 96/minute 20/minute 148/88 Weight 41.2 kg Shanna Newton APRN.CNP 07/31/2024 11:45 AM Signed CC: Patient presents [...] chronic bronchitis, bronchiectasis or COPD: Yes copd Seasonal/environmenta l allergies: No The ROS is otherwise negative. [...] 09/14/2014 See scanned documents - status post ESOPHAGOGASTRODUODENO SCOPY TRANSORAL DIAGNOSTIC 06/27/2016 EGD ESOPHAGOGASTRODUODENO SCOPY TRANSORAL DIAGNOSTIC 06/30/2018 EGD IANDD ABSCESS CMPLX/MULT 07/2013 Epidural abscess- MSSA LIG/TRNSXJ FLP TUBE ABDL/VAG APPR UNI/BI Tubal ligation PAST SURGICAL HISTORY OF spinal surgery PAST SURGICAL HISTORY OF / retinal detachment OD, (2 tears) PAST SURGICAL HISTORY OF 2013 back surgery STRESS TEST NUCLEAR 05/23/2021 negative ALLERGIES Fish, Horse/Equine Containing Products, Lisinopril, and Shellfish Derived MEDICATIONS Dextromethorphan-guai FENesin (ROBITUSSIN COUGH-CHEST ESTEFANÍA DM) 5-100 mg/5 mL liqd Take 10 mL by mouth every 4 hours as needed. acyclovir (ZOVIRAX) 400 mg tablet Take 1 tablet by mouth two times a day. omeprazole (PRILOSEC) 40 mg capsule Take 1 capsule by mouth once daily. traZODone (DESYREL) 150 mg tablet Take 1 tablet by mouth daily at (more content not included)... Normal [facility] XR CHEST 2V FRONTAL/LATon XR CHEST 2V FRONTAL/LAT * * *Final Repor t* * * DATE OF EXAM: Jul 31 [...] for pneumonia or aspiration. Please clinically correlate. Curator Of Manuscripts: PSCB Transcribe Date/Time: Jul 31 2024 11:30A Dictated by : LAURIE KAYE MD This examination was interpreted and the report reviewed and electronically signed by: LAURIE KAYE MD on Jul 31 2024 11:32AM EST [id number] N Normal [facility] XR Chest PA and Lateralon IMPRESSION: Small patchy opacities in the lower lobe, raising concern for pneumonia or aspiration. Please clinically correlate. Curator Of Manuscripts: LEONARDO Transcribe Date/Time: Jul 31 2024 11:30A Dictated by : LAURIE KAYE MD This examination was interpreted and the report reviewed and electronically signed by: LAURIE KAYE MD on Jul 31 2024 11:32AM [facility] DIVISION OF RADIOLOGY * * *Final [...] and degenerative changes. DIVISION OF RADIOLOGY Provider, [facility] - 07/31/2024 * * *Final Report* * [...] for pneumonia or aspiration. Please clinically correlate. Curator Of Manuscripts: LEONARDO Transcribe Date/Time: Jul 31 2024 11:30A Dictated by : LAURIE KAYE MD This examination was interpreted and the report reviewed and electronically signed by: LAURIE KAYE MD on Jul 31 2024 11:32AM EST [facility] Radiology Study observation (narrative) Carlos nguyen [facility] XR Chest PA and LateralOrder ed By: Ccf Provider on 07-31-2024 [facility] Pulmonary Visit Reporton Pulmonary Visit Report [facility] [address] [place] [address] OFFICE VISIT Date of Service: 07/21/24 MR#: [id number] Acct: [id number] Name: JENA RAMIREZ Rep #: [id number] : [id number] Provider: Letha Emery NP Age/Sex: 69/F Location[place] [facility] Status: Signed Assessment and Plan Assessment and [...] L T (more content not included)... Normal [facility] UA DIP, URINE (POC)on 2023 BILIRUBIN UA (POCT) Negative Negative [facility] CLARITY UA (POCT) Clear [facility] COLOR UA (POCT) Yellow [facility] GLUCOSE UA (POCT) Negative Negative mg/dL [facility] Hemoglobin Ql (U) Small Abnormal Negative [facility] Interpretation and review of laboratory results Abnormal [facility] KETONE UA (POCT) Negative Negative mg/dL [facility] LEUKOCYTES UA (POCT) Moderate Abnormal Negative [facility] NITRITE UA (POCT) Negative Negative [facility] PH UA (POCT) 6.0 4.5 - 8.0 [facility] Protein Ql (U) Negative Negative mg/dL [facility] SPECIFIC GRAVITY UA (POCT) <=1.005 Abnormal 1.005 - 1.030 [facility] UROBILINOGEN UA (POCT) 0.2 Mary Ellen l E.U./dL [facility] Location:[address], [place], [address] [facility] POINT OF CARE [facility] UA DIP, URINE (POC)on 2023 BILIRUBIN UA (POCT) Negative Negative [facility] CLARITY UA (POCT) Clear [facility] COLOR UA (POCT) Yellow [facility] GLUCOSE UA (POCT) Negative Negative mg/dL [facility] Hemoglobin Ql (U) Negative Negative [facility] KETONE UA (POCT) Negative Negative mg/dL [facility] LEUKOCYTES UA (POCT) Negative Negative [facility] NITRITE UA (POCT) Negative Negative [facility] PH UA (POCT) 7.0 4.5 - 8.0 [facility] Protein Ql (U) Negative Negative mg/dL [facility] SPECIFIC GRAVITY UA (POCT) 1.010 1.005 - 1.030 [facility] UROBILINOGEN UA (POCT) 0.2 Mary Ellen l E.U./dL [facility] Location:[facility], [address] [place] [address], [place], [place], [id number] [place] [address] POINT OF CARE [facility] MR Shoulder - left LISET cabral 04-24-2024 IMPRESSION: Rotator cuff tendinosis without tear. Long head of biceps tendon sheath effusion that could potentially relate to tenosynovitis. Curator Of Manuscripts: PSCB Transcribe Date/Time: Apr 24 2024 10:49A Dictated by : CATHLEEN KYLE MD This examination was interpreted and the report reviewed and electronically signed by: CATHLEEN KYLE MD on Apr 24 2024 10:58AM [facility] DIVISION OF RADIOLOGY * * *Final Report* * * DATE OF EXAM: Apr 24 2024 10:00AM [facility] 0239 - MRI SHOULDER WO IVCON LT [...] or suspicious bone marrow replacing process OTHER: Subdeltoid/Subacromia l Bursa: Mild bursal distention Localizer images: No additional findings. DIVISION OF RADIOLOGY [facility] * * *Final Report* * [...] or suspicious bone marrow replacing process OTHER: Subdeltoid/Subacromia l Bursa: Mild bursal distention Localizer images: No additional findings. IMPRESSION IMPRESSION: Rotator cuff tendinosis without tear. Long head of biceps tendon sheath effusion that could potentially relate to tenosynovitis. Curator Of Manuscripts: LEONARDO Transcribe Date/Time: Apr 24 2024 10:49A Dictated by : CATHLEEN KYLE MD This examination was interpreted and the report reviewed and electronically signed by: CATHLEEN KYLE MD on Apr 24 2024 10:58AM EST [facility] Radiology Study observation (narrative) [facility] MR Shoulder - left WO contra stOrdered By: Ccf Provider on 04-24-2024 [facility] XR Chest PA and Lateralon IMPRESSION: Overall findings unchanged. Curator Of Manuscripts: LEONARDO Transcribe Date/Time: Apr 14 2024 10:45A [...] and degenerative changes. DIVISION OF RADIOLOGY [facility], [facility] - 04/14/[facility]24 * * *Final Report* * [...] degenerative changes. IMPRESSION IMPRESSION: Overall findings unchanged. Curator Of Manuscripts: LEONARDO Transcribe Date/Time: Apr 14 2024 10:45A Dictated by : LAURIE KAYE MD This examination was interpreted and the report reviewed and electronically signed by: LAURIE KAYE MD on Apr 14 2024 10:46AM EST [facility] Radiology Study observation (narrative) [facility] XR Chest PA and LateralOrder ed By: Ccf Provider on 04-14-2024 [facility] No Panel Informationon 03-18 IMPRESSION: No acute osseous abnormality. Mild LEFT glenohumeral and acromioclavicular osteoarthritis. Curator Of Manuscripts: LEONARDO Transcribe Date/Time: Mar 18 2024 12:04P Dictated by : GARETH ESCAMILLA DO This examination was interpreted and the report reviewed and electronically signed by: GARETH ESCAMILLA DO on Mar 18 2024 12:08PM [facility] DIVISION OF RADIOLOGY Radiology Study observation (narrative) [facility] No Panel InformationOrdered By: Ccf Provider on 03-18-2024 [facility] XR Clavicle - left 2 Viewson 03-18-2024 [...] the cervicothoracic spine. DIVISION OF RADIOLOGY [facility], [facility] * * *Final Report* * [...] abnormality. Mild LEFT glenohumeral and acromioclavicular osteoarthritis. Curator Of Manuscripts: LEONARDO Transcribe Date/Time: Mar 18 2024 12:04P Dictated by : GARETH ESCAMILLA DO This examination was interpreted and the report reviewed and electronically signed by: GARETH ESCAMILLA DO on Mar 18 2024 12:08PM [facility] XR Shoulder - left 3 Viewson 03-18-2024 [...] the cervicothoracic spine. DIVISION OF RADIOLOGY Provider, [facility] - 03/18/2024 * * *Final Report* * [...] abnormality. Mild LEFT glenohumeral and acromioclavicular osteoarthritis. Curator Of Manuscripts: PSCB Transcribe Date/Time: Mar 18 2024 12:04P Dictated by : GARETH ESCAMILLA DO This examination was interpreted and the report reviewed and electronically signed by: GARETH ESCAMILLA DO on Mar 18 2024 12:08PM [facility] COVID & INFLUENZA A/B & RSV NAAT, ROUTINEon 12-23-2023 FLUAV RNA THOMAS+probe Ql (Unsp spec) Not detected Not Detected [facility] FLUBV RNA THOMAS+probe Ql (Unsp spec) Not detected Not Detected [facility] Interpretation and review of laboratory results Normal [facility] RSV A RNA THOMAS+probe Ql (Unsp spec) Not detected Not Detected [facility] SARS-CoV-2 (COVID-19) RNA THOMAS+probe Ql (Resp) Not detected See comment [facility] Comment on above: The method used is R T-PCR or an equivalent NAAT method. Reference Range (the expected result in uninfected individuals): Not detected For upper respirator y tract samples, this test has been authorized by FDA under Emergenecy Use Authorization (EUA). For lower respiratory tract samples, this test was developed and its performance characteristics determined by [facility]'s [facility] ([facility]). It has not been cleared or approved by the FDA. [facility] is regulated under CLIA as qualified to perform high-complexity testing. This test is used for clinical purposes. It should not be regarded as investigational or for research. Test performed by [facility], [facility] [place], [address] [place] [address]. [facility] XR Chest PA and Lateralon IMPRESSION: Interstitial prominence in the lower lungs. No pleural effusion or consolidation. Curator Of Manuscripts: LEONARDO Transcribe Date/Time: Dec 23 2023 11:12A Dictated by : DELMI AYALA MD This examination was interpreted and the report reviewed and electronically signed by: DELMI AYALA MD on Dec 23 2023 11:13AM [facility] DIVISION OF RADIOLOGY * * *Final [...] the thoracic spine DIVISION OF RADIOLOGY Provider, Elder Bee [facility] - 12/23/2023 * * *Final Report* * [...] lower lungs. No pleural effusion or consolidation. Curator Of Manuscripts: LEONARDO Transcribe Date/Time: Dec 23 2023 11:12A Dictated by : DELMI AYALA MD This examination was interpreted and the report reviewed and electronically signed by: DELMI AYALA MD on Dec 23 2023 11:13AM EST [facility] Radiology Study observation (narrative) [facility] XR Chest PA and LateralOrder ed By: Ccf Provider on 12-23-2023 [facility] No Panel Informationon 10-15 Radiology Study observation (narrative) [facility] XR Cervical spine AP and Lat eral and obliqueon 10-15-2023 IMPRESSION: DEGENERATIVE CHANGE AND ALIGNMENT ABNORMALITIES DESCRIBED Curator Of Manuscripts: LEONARDO Transcribe Date/Time: Oct 15 2023 2:46P Dictated by : CECILIO GAVIRIA MD This examination was interpreted and the report reviewed and electronically signed by: CECILIO GAVIRIA MD on Oct 15 2023 2:48PM [facility] DIVISION OF RADIOLOGY * * *Final [...] or prevertebral swelling. DIVISION OF RADIOLOGY Provider, [facility] - 10/15/2023 * * *Final Report* * [...] IMPRESSION: DEGENERATIVE CHANGE AND ALIGNMENT ABNORMALITIES DESCRIBED Curator Of Manuscripts: [facility] Transcribe Date/Time: Oct 15 2023 2:46P Dictated by : CECILIO GAVIRIA MD This examination was interpreted and the report reviewed and electronically signed by: CECILIO GAVIRIA MD on Oct 15 2023 2:48PM EST [facility] XR Cervical spine AP and Lat eral and obliqueOrdered By: Ccf Provider on 10-15-2023 [facility] XR Shoulder - right 3 Viewso n 10-15-2023 IMPRESSION: No acute fracture. Degenerative disease of the right shoulder. Curator Of Manuscripts: PSCB Transcribe Date/Time: Oct 15 2023 4:59P Dictated by : DELMI AYALA MD This examination was interpreted and the report reviewed and electronically signed by: DELMI AYALA MD on Oct 15 2023 5:00PM [facility] DIVISION OF RADIOLOGY * * *Final [...] joint space narrowing. DIVISION OF RADIOLOGY Provider, [facility] - 10/15/2023 * * *Final Report* * [...] fracture. Degenerative disease of the right shoulder. Curator Of Manuscripts: LEONARDO Transcribe Date/Time: Oct 15 2023 4:59P Dictated by : DELMI AYALA MD This examination was interpreted and the report reviewed and electronically signed by: DELMI AYALA MD on Oct 15 2023 5:00PM [facility] XR Lumbar spine Views W flex ion and W extensionon 08-21-2023 IMPRESSION: Multilevel lumbar degenerative findings with postsurgical changes. At L3-4 there is 2 mm spondylolisthesis with flexion and anatomic positioning and neutral and extension. The L5-S1 level. There is mild spondylolisthesis which slightly increases with flexion. Curator Of Manuscripts: LEONARDO Transcribe Date/Time: Aug 21 2023 3:53P Dictated by : VELIA RIVERA MD This examination was interpreted and the report reviewed and electronically signed by: VELIA RIVERA MD on Aug 21 2023 4:00PM [facility] DIVISION OF RADIOLOGY * * *Final [...] Anatomic Variants: None. DIVISION OF RADIOLOGY Provider, [facility] Cristal [facility] - 08/21/2023 * * *Final Report* * [...] mild spondylolisthesis which slightly increases with flexion. Curator Of Manuscripts: LEONARDO Transcribe Date/Time: Aug 21 2023 3:53P Dictated by : VELIA RIVERA MD This examination was interpreted and the report reviewed and electronically signed by: VELIA RIVERA MD on Aug 21 2023 4:00PM EST [facility] XR Lumbar spine Views W flex ion and W extensionOrdered By: Ccf Provider on 08-21-2023 [facility] XR HIP BILATERAL 5V PEL/AP/L AT EACH HIPon 08-20-2023 IMPRESSION: Mild degenerative changes at the hips with no acute fractures seen Curator Of Manuscripts: LEONARDO Transcribe Date/Time: Aug 20 2023 6:58P Dictated by : CELESTINO MOTA MD This examination was interpreted and the report reviewed and electronically signed by: CELESTINO MOTA MD on Aug 20 2023 6:59PM [facility] DIVISION OF RADIOLOGY * * *Final [...] the left hip DIVISION OF RADIOLOGY Provider, [facility] - 08/20/2023 * * *Final Report* * [...] the hips with no acute fractures seen Curator Of Manuscripts: LEONARDO Transcribe Date/Time: Aug 20 2023 6:58P Dictated by : CELESTINO MOTA MD This examination was interpreted and the report reviewed and electronically signed by: CELESTINO MOTA MD on Aug 20 2023 6:59PM [facility] No Panel Informationon 08-15 Radiology Study observation (narrative) [facility] CBC W Auto Differential pane l (Bld)on 06-04-2023 Basophils (Bld) [#/Vol] 0.06 10*3/uL <0.11 k/uL [facility] Basophils/100 WBC (Bld) 0.5 % [facility] Differential cell count method Nom (Bld) Auto [facility] Eosinophils (Bld) [#/Vol] 0.10 10*3/uL <0.46 k/uL [facility] Eosinophils/100 WBC (Bld) 0.9 % [facility] Erythrocyte distribution width (RBC) [Ratio] 12.4 % 11.5 - 15.0 % [facility] Hematocrit (Bld) [Volume fraction] 45.7 % 36.0 - 46.0 % [facility] Hemoglobin (Bld) [Mass/Vol] 14.9 g/dL 11.5 - 15.5 g/dL [facility] Immature granulocytes (Bld) [#/Vol] <0.10 k/uL [facility] Immature granulocytes/100 WBC (Bld) 0.2 % [facility] Lymphocytes (Bld) [#/Vol] 1.43 10*3/uL 1.00 - 4.00 k/uL [facility] Lymphocytes/100 WBC (Bld) 12.7 % [facility] MCH (RBC) [Entitic mass] 33.6 pg 26. 0 - 34.0 pg [facility] MCHC (RBC) [Mass/Vol] 32.6 g/dL 30.5 - 36.0 g/dL [facility] MCV (RBC) [Entitic vol] 102.9 fL High 80.0 - 100.0 fL [facility] Monocytes (Bld) [#/Vol] 1.03 10*3/uL High <0.87 k/uL [facility] Monocytes/100 WBC (Bld) 9.2 % [facility] Neutrophils (Bld) [#/Vol] 8.61 10*3/uL High 1.45 - 7.50 k/uL [facility] Neutrophils/100 WBC (Bld) 76.5 % [facility] Nucleated RBC (Bld) [#/Vol] <0.01 k/uL [facility] Nucleated RBC/100 WBC (Bld) [Ratio] 0.0 /100 WBC [facility] Platelet mean volume (Bld) [Entitic vol] 9.8 fL 9.0 - 12.7 fL [facility] Platelets (Bld) [#/Vol] 262 10*3/uL 150 - 400 k/uL [facility] RBC (Bld) [#/Vol] 4.44 10*6/uL 3.90 - 5.2 0 m/uL [facility] WBC (Bld) [#/Vol] 11.25 10*3/uL High 3.70 - 11 .00 k/uL [facility] Absolute lymphocyte countOrd ered By: Mick Pelletier on 06-02-2023 Lymphocytes Auto (Unsp spec) [#/Vol] 1.34 10*3/uL 0.83-4.51 [facility] Basophil percentageOrdered B y: Mick Pelletier on 06-02-2023 Basophils/100 WBC (Bld) 0.7 % 0-1 [facility] Chloride [Moles/Vol] 110 mmol/L 98-107 [place] Eosinophils/100 WBC (Bld) 1.3 % 0-5 [facility] Glucose [Mass/Vol] 74 mg/dL 74-106 [facility] Neutrophils (Bld) [#/Vol] 7.9 10*3/uL 2.0-7.7 [facility] Neutrophils/100 WBC (Bld) 74.5 % 47-70 [facility] Potassium [Moles/Vol] 3.6 mmol/L 3.5-5.1 [facility] Sodium [Moles/Vol] 142 mmol/L 136-145 [facility] WBC (Bld) [#/Vol] 10.6 10*3/uL 4.4-11.0 [facility] Blood erythrocytes count (nu mber/volume)Ordered By: Mick Pelletier on 06-02-2023 RBC (Bld) [#/Vol] 4.22 10*6/uL 4.2-5.4 [facility] Blood hemoglobin measurement (mass/volume)Ordered By: Mick Pelletier on 06-02-2023 Hemoglobin (Bld) [Mass/Vol] 14.1 g/dL 12.0-15.0 [facility] Blood lymphocytes/100 leukoc ytesOrdered By: Mick Pelletier on 06-02-2023 Lymphocytes/100 WBC (Bld) 12.6 % 19-41 [facility] Blood monocytes/100 leukocyt esOrdered By: Mick Pelletier on 06-02-2023 Monocytes/100 WBC (Bld) 10.5 % 0-10 [facility] Blood platelet mean volumeOr dered By: Mick Pelletier on 06-02-2023 Platelet mean volume (Bld) [Entitic vol] 9.4 fL 6.2-12.0 [facility] Determination of erythrocyte mean corpuscular volume (MCV)Ordered By: Mick Pelletier on 06-02-2023 MCV (RBC) [Entitic vol] 102.8 fL 81-99 [facility] Hematocrit Auto (Bld) [Volum e fraction]Ordered By: Mick Pelletier on 06-02-2023 Hematocrit (Bld) [Volume fraction] 43.4 % 37-47 [facility] Laboratory - Chemistry and C hemistry - challengeOrdered By: Mick Pelletier on 06-02-2023 CO2 [Moles/Vol] 23.0 mmol/L 21.0-32.0 [facility] Urea nitrogen/Creatinine [Mass ratio] 27.7 mg/mg 10-20 [facility] Laboratory - Hematology and Cell countsOrdered By: Mick Pelletier on 06-02-2023 Erythrocyte distribution width (RBC) [Entitic vol] 47.8 fL 35.1-43.9 [facility] Erythrocyte distribution width (RBC) [Ratio] 12.6 % 11.6-14.6 [facility] Immature granulocytes/100 WBC (Bld) 0.400 % 0.0-0.9 [facility] Comment on above: IG% - Immature Granu locytes (promyelocytes, myelocytes and metamyelocytes) > 1% indicates that a LEFT SHIFT is Present. MCH (RBC) [Entitic mass] 33.4 pg 27.0-32.0 [facility] Nucleated RBC/100 WBC (Bld) [Ratio] 0 % 0-5 [facility] MCHC Auto (RBC) [Mass/Vol]Or dered By: Mick Pelletier on 06-02-2023 MCHC (RBC) [Mass/Vol] 32.5 g/dL 32-36 [facility] No Panel InformationOrdered By: Mick Pelletier on 06-02-2023 Estimated Creatinine Clearance Calc 34.79 ml/min [facility] Estimated GFR (MDRD) Amer 134 mL/min >60 [facility] Comment on above: GFR Calc Estimated GFR (MDRD) Non-Af Amer 111 mL/min >60 [facility] Comment on above: Non- GFR Calc Platelets bldOrdered By: Dontae Pelletier on 06-02-2023 Platelets (Bld) [#/Vol] 266 10*3/uL 150-450 [facility] Serum or plasma calcium alonso urement (mass/volume)Ordered By: Mick Pelletier on 06-02-2023 Calcium [Mass/Vol] 8.0 mg/dL 8.5-10.1 [facility] Serum or plasma creatinine m easurement (mass/volume)Ordered By: Mick Pelleteir on 06-02-2023 Creatinine [Mass/Vol] 0.58 mg/dL 0.55-1.02 [facility] Comment on above: The validity of the calculated GFR & GFRAA in patients over 70 years has not been determined. Clinical correlation is essential. Serum or plasma urea nitroge n measurement (mass/volume)Ordered By: Mick Pelletier on 06-02-2023 Urea nitrogen [Mass/Vol] 16 mg/dL 7-18 [facility] Thin prep Papanicolaou smear with manual screeningOrdered By: Mick Pelletier on 06-02-2023 Thin prep Papanicolaou smear with manual screening 9 5-15 [facility] Absolute lymphocyte countOrd ered By: Tyler rGeen on 05-31-2023 Lymphocytes Auto (Unsp spec) [#/Vol] 1.89 10*3/uL 0.83-4.51 [facility] Basophil percentageOrdered B y: Tyler Green on 05-31-2023 Basophil percentage 0 SEEN /hpf 0-5 [place] Basophils/100 WBC (Bld) 0.6 % 0-1 [facility] Chloride [Moles/Vol] 101 mmol/L 98-107 [place] Eosinophils/100 WBC (Bld) 1.4 % 0-5 [facility] Glucose [Mass/Vol] 101 mg/dL 74-106 [facility] Comment on above: Fasting Glucose resu lt from 100 to 125 mg/dL suggests IMPAIRED HOMEOSTASIS per A.D.A. criteria. Lactate [Moles/Vol] 1.0 mmol/L 0.4-2.0 [facility] Neutrophils (Bld) [#/Vol] 10.6 10*3/uL 2.0-7.7 [facility] Neutrophils/100 WBC (Bld) 76.5 % 47-70 [facility] Potassium [Moles/Vol] 4.1 mmol/L 3.5-5.1 [facility] Comment on above: Slight Hemolysis, Re sult may be falsely increased. Sodium [Moles/Vol] 135 mmol/L 136-145 [facility] WBC (Bld) [#/Vol] 13.8 10*3/uL 4.4-11.0 [facility] Bilirubin Test strip Ql (U)O rdered By: Tyler Green on 05-31-2023 Bilirubin Ql (U) Negative Negative [facility] Blood erythrocytes count (nu mber/volume)Ordered By: Tyler Green on 05-31-2023 RBC (Bld) [#/Vol] 4.61 10*6/uL 4.2-5.4 [facility] Blood hemoglobin measurement (mass/volume)Ordered By: Tyler Green on 05-31-2023 Hemoglobin (Bld) [Mass/Vol] 15.6 g/dL 12.0-15.0 [facility] Blood lymphocytes/100 leukoc ytesOrdered By: Tyler Green on 05-31-2023 Lymphocytes/100 WBC (Bld) 13.7 % 19-41 [facility] Blood monocytes/100 leukocyt esOrdered By: Tyler Green on 05-31-2023 Monocytes/100 WBC (Bld) 7.4 % 0-10 [facility] Blood platelet mean volumeOr dered By: Tyler Green on 05-31-2023 Platelet mean volume (Bld) [Entitic vol] 9.4 fL 6.2-12.0 [facility] Determination of erythrocyte mean corpuscular volume (MCV)Ordered By: Tyler Green on 05-31-2023 MCV (RBC) [Entitic vol] 98.9 fL 81-99 [facility] Hematocrit Auto (Bld) [Volum e fraction]Ordered By: Tyler Green on 05-31-2023 Hematocrit (Bld) [Volume fraction] 45.6 % 37-47 [facility] Ketones Test strip Ql (U)Ord ered By: Tyler Green on 05-31-2023 Ketones Ql (U) Negative Negative [facility] Laboratory - Chemistry and C hemistry - challengeOrdered By: Tyler Green on 05-31-2023 CO2 [Moles/Vol] 29.0 mmol/L 21.0-32.0 [facility] Urea nitrogen/Creatinine [Mass ratio] 19.0 mg/mg 10-20 [facility] Laboratory - Hematology and Cell countsOrdered By: Tyler Green on 05-31-2023 Erythrocyte distribution width (RBC) [Entitic vol] 44.8 fL 35.1-43.9 [facility] Erythrocyte distribution width (RBC) [Ratio] 12.3 % 11.6-14.6 [facility] Immature granulocytes/100 WBC (Bld) 0.400 % 0.0-0.9 [facility] Comment on above: IG% - Immature Granu locytes (promyelocytes, myelocytes and metamyelocytes) > 1% indicates that a LEFT SHIFT is Present. MCH (RBC) [Entitic mass] 33.8 pg 27.0-32.0 [facility] Nucleated RBC/100 WBC (Bld) [Ratio] 0 % 0-5 [facility] MCHC Auto (RBC) [Mass/Vol]Or dered By: Tyler Green on 05-31-2023 MCHC (RBC) [Mass/Vol] 34.2 g/dL 32-36 [facility] Mucus LM Ql (Urine sed)Order ed By: Tyler Green on 05-31-2023 Mucus Ql (Urine sed) 0 SEEN /hpf [facility] Nitrite Test strip Ql (U)Ord ered By: Tyler Green on 05-31-2023 Nitrite Ql (U) Negative Negative [facility] No Panel InformationOrdered By: Tyler Green on 05-31-2023 Estimated Creatinine Clearance Calc 35.96 ml/min [facility] Estimated GFR (MDRD) Amer 121 mL/min >60 [facility] Comment on above: GFR Calc Estimated GFR (MDRD) Non-Af Amer 100 mL/min >60 [facility] Comment on above: Non- GFR Calc Platelets bldOrdered By: Haseeb Green on 05-31-2023 Platelets (Bld) [#/Vol] 299 10*3/uL 150-450 [facility] Protein Test strip Ql (U)Ord ered By: Tyler Green on 05-31-2023 Protein Ql (U) Negative Negative [facility] Serum or plasma calcium alonso urement (mass/volume)Ordered By: Tyler Green on 05-31-2023 Calcium [Mass/Vol] 8.9 mg/dL 8.5-10.1 [facility] Serum or plasma creatinine m easurement (mass/volume)Ordered By: Tyler Green on 05-31-2023 Creatinine [Mass/Vol] 0.63 mg/dL 0.55-1.02 [facility] Comment on above: The validity of the calculated GFR & GFRAA in patients over 70 years has not been determined. Clinical correlation is essential. Serum or plasma urea nitroge n measurement (mass/volume)Ordered By: Tyler Green on 05-31-2023 Urea nitrogen [Mass/Vol] 12 mg/dL 7-18 [facility] Squamous epithelial cells de tection in urine sediment by light microscopyOrdered By: Tyler Green on 05-31-2023 Epithelial cells.squamous LM Ql (Urine sed) 0-5 SEEN /hpf 5-10 [facility] Thin prep Papanicolaou smear with manual screeningOrdered By: Tyler Green on 05-31-2023 Thin prep Papanicolaou smear with manual screening 5 5-15 [facility] Urine blood detectionOrdered By: Tyler Green on 05-31-2023 RBC Ql (U) 25 /ul Negative [facility] RBC Ql (U) 0 SEEN /hpf 0-5 [facility] Urine clarityOrdered By: Haseeb Green on 05-31-2023 Clarity (U) Clear Clear [facility] Urine color determinationOrd ered By: Tyler Green on 05-31-2023 Color (U) Yellow Yellow [facility] Urine glucose detectionOrder ed By: Tyler Green on 05-31-2023 Glucose Ql (U) Normal mg/dl Normal [facility] Urine leukocyte esterase det ection by dipstickOrdered By: Tyler Green on 05-31-2023 Leukocyte esterase Test strip Ql (U) Negative Negative [facility] Urine pHOrdered By: Tyler Green on 05-31-2023 pH (U) 7.0 [pH] 5.0 - 8.0 [facility] Urine sediment bacteria coun t by microscopy (number/high power field)Ordered By: Tyler Green on 05-31-2023 Bacteria LM.HPF (Urine sed) [#/Area] 0 /[HPF] None Seen [facility] Urine specific gravity measu rementOrdered By: Tyler Green on 05-31-2023 Specific gravity (U) [Rel density] 1.010 1.002-1.030 [facility] Urobilinogen Auto test strip Ql (U)Ordered By: Tyler Green on 05-31-2023 Urobilinogen Ql (U) Normal mg/dl Normal [facility] CTA HEAD W IVCONon 3 [facility] Basic metabolic 2000 panelon 02-20-2023 Anion gap [Moles/Vol] 13 mmol/L 9 - 18 mmol/L [facility] Calcium [Mass/Vol] 9.7 mg/dL 8.5 - 10. 2 mg/dL [facility] Chloride [Moles/Vol] 97 mmol/L 97 - 10 5 mmol/L [facility] CO2 [Moles/Vol] 26 mmol/L 22 - 30 mmol/L [facility] Creatinine [Mass/Vol] 0.60 mg/dL 0.58 - 0.96 mg/dL [facility] Estimated Glomerular Filtration Rate 99 mL/min/1.73m >=60 mL/min/1.73m [facility] Glucose [Mass/Vol] 101 mg/dL High 74 - 99 mg/dL [facility] Potassium [Moles/Vol] 4.5 mmol/L 3.7 - 5.1 mmol/L [facility] Sodium [Moles/Vol] 136 mmol/L 136 - 144 mmol/L [facility] Urea nitrogen [Mass/Vol] 16 mg/dL 7 - 21 mg/d L [facility] CBC W Auto Differential pane l (Bld)on 02-20-2023 Basophils (Bld) [#/Vol] 0.07 10*3/uL <0.11 k/uL [facility] Basophils/100 WBC (Bld) 0.6 % [facility] Differential cell count method Nom (Bld) Auto [facility] Eosinophils (Bld) [#/Vol] 0.21 10*3/uL <0.46 k/uL [facility] Eosinophils/100 WBC (Bld) 1.9 % [facility] Erythrocyte distribution width (RBC) [Ratio] 12.0 % 11.5 - 15.0 % [facility] Hematocrit (Bld) [Volume fraction] 44.1 % 36.0 - 46.0 % [facility] Hemoglobin (Bld) [Mass/Vol] 14.5 g/dL 11.5 - 15.5 g/dL [facility] Immature granulocytes (Bld) [#/Vol] 0.10 10*3/uL High <0.10 k/uL [facility] Immature granulocytes/100 WBC (Bld) 0.9 % [facility] Lymphocytes (Bld) [#/Vol] 1.80 10*3/uL 1.00 - 4.00 k/uL [facility] Lymphocytes/100 WBC (Bld) 15.9 % [facility] MCH (RBC) [Entitic mass] 32.7 pg 26. 0 - 34.0 pg [facility] MCHC (RBC) [Mass/Vol] 32.9 g/dL 30.5 - 36.0 g/dL [facility] MCV (RBC) [Entitic vol] 99.5 fL 80.0 - 100.0 fL [facility] Monocytes (Bld) [#/Vol] 0.94 10*3/uL High <0.87 k/uL [facility] Monocytes/100 WBC (Bld) 8.3 % [facility] Neutrophils (Bld) [#/Vol] 8.20 10*3/uL High 1.45 - 7.50 k/uL [facility] Neutrophils/100 WBC (Bld) 72.4 % [facility] Nucleated RBC (Bld) [#/Vol] <0.01 k/uL [facility] Nucleated RBC/100 WBC (Bld) [Ratio] 0.0 /100 WBC [facility] Platelet mean volume (Bld) [Entitic vol] 8.6 fL Low 9.0 - 12.7 fL [facility] Platelets (Bld) [#/Vol] 621 10*3/uL High 150 - 400 k/uL [facility] RBC (Bld) [#/Vol] 4.43 10*6/uL 3.90 - 5.2 0 m/uL [facility] WBC (Bld) [#/Vol] 11.32 10*3/uL High 3.70 - 11 .00 k/uL [facility] TSH BLDon 02-20-2023 TSH Qn 1.060 m[IU]/L 0.270 - 4.200 mIU/L [facility] Absolute lymphocyte countOrd ered By: Raymundo Mercado on 02-12-2023 Lymphocytes Auto (Unsp spec) [#/Vol] 1.54 10*3/uL 0.83-4.51 [facility] Basophil percentageOrdered B y: Raymundo Mercado on 02-12-2023 Basophil percentage 0 SEEN /hpf 0-5 [place] Basophils/100 WBC (Bld) 0.6 % 0-1 [facility] Chloride [Moles/Vol] 97 mmol/L 98-107 [place] Eosinophils/100 WBC (Bld) 1.9 % 0-5 [facility] Glucose [Mass/Vol] 102 mg/dL 74-106 [facility] Comment on above: Fasting Glucose resu lt from 100 to 125 mg/dL suggests IMPAIRED HOMEOSTASIS per A.D.A. criteria. Neutrophils (Bld) [#/Vol] 6.0 10*3/uL 2.0-7.7 [facility] Neutrophils/100 WBC (Bld) 66.1 % 47-70 [facility] Potassium [Moles/Vol] 3.5 mmol/L 3.5-5.1 [facility] Sodium [Moles/Vol] 133 mmol/L 136-145 [facility] WBC (Bld) [#/Vol] 9.1 10*3/uL 4.4-11.0 [facility] Bilirubin Test strip Ql (U)O rdered By: Raymundo Mercado on 02-12-2023 Bilirubin Ql (U) Negative Negative [facility] Blood erythrocytes count (nu mber/volume)Ordered By: Raymundo Mercado on 02-12-2023 RBC (Bld) [#/Vol] 4.27 10*6/uL 4.2-5.4 [facility] Blood hemoglobin measurement (mass/volume)Ordered By: Raymundo Mercado on 02-12-2023 Hemoglobin (Bld) [Mass/Vol] 14.3 g/dL 12.0-15.0 [facility] Blood lymphocytes/100 leukoc ytesOrdered By: Raymundo Mercado on 02-12-2023 Lymphocytes/100 WBC (Bld) 17.0 % 19-41 [facility] Blood monocytes/100 leukocyt esOrdered By: Raymundo Mercado on 02-12-2023 Monocytes/100 WBC (Bld) 14.0 % 0-10 [facility] Blood platelet mean volumeOr dered By: Raymundo Mercado on 02-12-2023 Platelet mean volume (Bld) [Entitic vol] 8.7 fL 6.2-12.0 [facility] Determination of erythrocyte mean corpuscular volume (MCV)Ordered By: Raymundo Mercado on 02-12-2023 MCV (RBC) [Entitic vol] 98.8 fL 81-99 [facility] Hematocrit Auto (Bld) [Volum e fraction]Ordered By: Raymundo Mercado on 02-12-2023 Hematocrit (Bld) [Volume fraction] 42.2 % 37-47 [facility] Ketones Test strip Ql (U)Ord ered By: Raymundo Mercado on 02-12-2023 Ketones Ql (U) Negative Negative [facility] Laboratory - Chemistry and C hemistry - challengeOrdered By: Raymundo Mercado on 02-12-2023 CO2 [Moles/Vol] 28.0 mmol/L 21.0-32.0 [facility] Urea nitrogen/Creatinine [Mass ratio] 12.3 mg/mg 10-20 [facility] Laboratory - Hematology and Cell countsOrdered By: Raymundo Mercado on 02-12-2023 Erythrocyte distribution width (RBC) [Entitic vol] 43.2 fL 35.1-43.9 [facility] Erythrocyte distribution width (RBC) [Ratio] 11.9 % 11.6-14.6 [facility] Immature granulocytes/100 WBC (Bld) 0.400 % 0.0-0.9 [facility] Comment on above: IG% - Immature Granu locytes (promyelocytes, myelocytes and metamyelocytes) > 1% indicates that a LEFT SHIFT is Present. MCH (RBC) [Entitic mass] 33.5 pg 27.0-32.0 [facility] Nucleated RBC/100 WBC (Bld) [Ratio] 0 % 0-5 [facility] MCHC Auto (RBC) [Mass/Vol]Or dered By: Raymundo Mercado on 02-12-2023 MCHC (RBC) [Mass/Vol] 33.9 g/dL 32-36 [facility] Mucus LM Ql (Urine sed)Order ed By: Raymundo Mercado on 02-12-2023 Mucus Ql (Urine sed) 0 SEEN /hpf [facility] Nitrite Test strip Ql (U)Ord ered By: Raymundo Mercado on 02-12-2023 Nitrite Ql (U) Negative Negative [facility] No Panel InformationOrdered By: Raymundo Mercado on 02-12-2023 Estimated Creatinine Clearance Calc 38.35 ml/min [facility] Estimated GFR (MDRD) Amer 162 mL/min >60 [facility] Comment on above: GFR Calc Estimated GFR (MDRD) Non-Af Amer 134 mL/min >60 [facility] Comment on above: Non- GFR Calc Platelets bldOrdered By: Kim Mercado on 02-12-2023 Platelets (Bld) [#/Vol] 321 10*3/uL 150-450 [facility] Protein Test strip Ql (U)Ord ered By: Raymundo Mercado on 02-12-2023 Protein Ql (U) 15 mg/dl Negative [facility] Serum or plasma calcium alonso urement (mass/volume)Ordered By: Raymundo Mercado on 02-12-2023 Calcium [Mass/Vol] 9.1 mg/dL 8.5-10.1 [facility] Serum or plasma creatinine m easurement (mass/volume)Ordered By: Raymundo Mercado on 02-12-2023 Creatinine [Mass/Vol] 0.49 mg/dL 0.55-1.02 [facility] Comment on above: The validity of the calculated GFR & GFRAA in patients over 70 years has not been determined. Clinical correlation is essential. Serum or plasma urea nitroge n measurement (mass/volume)Ordered By: Raymudno Mercado on 02-12-2023 Urea nitrogen [Mass/Vol] 6 mg/dL 7-18 [facility] Squamous epithelial cells de tection in urine sediment by light microscopyOrdered By: Raymundo Mercado on 02-12-2023 Epithelial cells.squamous LM Ql (Urine sed) 0 SEEN /hpf 5-10 [facility] Thin prep Papanicolaou smear with manual screeningOrdered By: Raymundo Mercado on 02-12-2023 Thin prep Papanicolaou smear with manual screening 8 5-15 [facility] Urine blood detectionOrdered By: Raymundo Mercado on 02-12-2023 RBC Ql (U) 25 /ul Negative [facility] RBC Ql (U) 0 SEEN /hpf 0-5 [facility] Urine clarityOrdered By: Kim Mercado on 02-12-2023 Clarity (U) Clear Clear [facility] Urine color determinationOrd ered By: Raymundo Mercado on 02-12-2023 Color (U) Yellow Yellow [facility] Urine glucose detectionOrder ed By: Raymundo Mercado on 02-12-2023 Glucose Ql (U) Normal mg/dl Normal [facility] Urine leukocyte esterase det ection by dipstickOrdered By: Raymundo Mercado on 02-12-2023 Leukocyte esterase Test strip Ql (U) 25 /ul Negative [facility] Urine pHOrdered By: Raymundo segal on 02-12-2023 pH (U) 7.0 [pH] 5.0 - 8.0 [facility] Urine sediment bacteria coun t by microscopy (number/high power field)Ordered By: Raymundo Mercado on 02-12-2023 Bacteria LM.HPF (Urine sed) [#/Area] 0 /[HPF] None Seen [facility] Urine specific gravity measu rementOrdered By: Raymundo Mercado on 02-12-2023 Specific gravity (U) [Rel density] 1.010 1.002-1.030 [facility] Urobilinogen Auto test strip Ql (U)Ordered By: Raymundo Mercado on 02-12-2023 Urobilinogen Ql (U) Normal mg/dl Normal [facility] XR Wrist - right 4 Viewson 0 12-18-2022 IMPRESSION: No radiographic evidence of acute osseous injury Curator Of Manuscripts: LEONARDO Transcribe Date/Time: Dec 18 2022 10:00A Dictated by : KATIE WATERS MD This examination was interpreted and the report reviewed and electronically signed by: KATIE WATERS MD on Dec 18 2022 10:02AM [facility] DIVISION OF RADIOLOGY * * *Final [...] radiopaque foreign body. DIVISION OF RADIOLOGY Provider, [facility] Cristal [facility] - 12/18/2022 * * *Final Report* * [...] No radiographic evidence of acute osseous injury Curator Of Manuscripts: [facility] Transcribe Date/Time: Dec 18 2022 10:00A Dictated by : KATIE WATERS MD This examination was interpreted and the report reviewed and electronically signed by: KATIE WATERS MD on Dec 18 2022 10:02AM EST [facility] Radiology Study observation (narrative) [facility] W[facility] - right 4 ViewsOrde red By: [facility] Provider on 12-18-2022 [facility] [address] CHEST WO IVCONon 12-04-19 [facility] US ABDOMEN COMPLETEon 2022 [facility] DXA-AXIAL SKELETONon 023 [facility] MARCIANO SCREENINGon 07-31-2022 [facility] ECG COMPLETEon 07-09-2022 Atrial Rate 82 BPM [facility] Calculated P [place] 41 degrees [facility] Calculated R [place] 48 degrees [facility] Calculated T [place] 37 degrees [facility] P-R Interval 124 ms [facility] QRS Duration 68 ms [facility] QT Interval 338 ms [facility] QTC Calculation (Bazett) 394 ms [facility] Ventricular Rate 82 BPM [facility] XR CHEST 2V FRONTAL/LATon [facility] XR Chest PA and Lateralon IMPRESSION: Stable chronic changes. No superimposed acute cardiopulmonary process. Curator Of Manuscripts: LEONARDO Transcribe Date/Time: Jul 09 2022 3:46P Dictated by : KASEY BLOUNT MD This examination was interpreted and the report reviewed and electronically signed by: KASEY BLOUNT MD on Jul 09 2022 3:48PM [facility] DIVISION OF RADIOLOGY * * *Final [...] destructive process noted. DIVISION OF RADIOLOGY Provider, [facility] - 07/09/2022 * * *Final Report* * [...] chronic changes. No superimposed acute cardiopulmonary process. Curator Of Manuscripts: LEONARDO Transcribe Date/Time: Jul 09 2022 3:46P Dictated by : KASEY BLOUNT MD This examination was interpreted and the report reviewed and electronically signed by: KASEY BLONUT MD on Jul 09 2022 3:48PM EST [facility] Radiology Study observation (narrative) [facility] X[facility] Chest PA and LateralOrder ed By: [facility] Provider on 07-09-2022 [facility] XR Abdomen Supine and Uprigh ton 03-23-2022 IMPRESSION: Nonobstructive bowel gas pattern with fecal retention. Curator Of Manuscripts: LEONARDO Transcribe Date/Time: Mar 23 2022 10:50A Dictated by : KASEY BLOUNT MD This examination was interpreted and the report reviewed and electronically signed by: KASEY BLOUNT MD on Mar 23 2022 5:53PM EST [id number] _DIVISION OF RADIOLOGY * * *Final Report* * [...] abdominal examinations available for comparison within the [facility] Imaging Archives. Comparison is made to AP [...] soft tissues and bony structures are unremarkable. [id number] SE_DIVISION OF RADIOLOGY Provider, [facility] Cristal re[facility] [place] - 03/23/2022 * * *Final Report* * [...] abdominal examinations available for comparison within the [facility] Imaging Archives. Comparison is made to AP [...] Nonobstructive bowel gas pattern with fecal retention. Curator Of Manuscripts: [facility] Transcribe Date/Time: Mar 23 2022 10:50A Dictated by : KASEY BLOUNT MD This examination was interpreted and the report reviewed and electronically signed by: KASEY BLOUNT MD on Mar 23 2022 5:53PM EST [facility] Radiology Study observation (narrative) [facility] XR Abdomen Supine and Uprigh tOrdered By: [facility] Provider on 03-23-2022 [facility] Absolute lymphocyte counton 03-18-2022 Lymphocytes Auto (Unsp spec) [#/Vol] 1.30 10*3/uL 0.83-4.51 [facility] Work Phone: Basophil percentageon 2021 Basophils/100 WBC (Bld) 0.5 % 0-1 [facility] Work Phone: Bilirubin [Mass/Vol] 0.40 mg/dL 0.20-1.00 [facility] Work Phone: Comment on above: For patients on eltr ombopag therapy, use of Dimension [place] TBIL is not recommended. Chloride [Moles/Vol] 109 mmol/L 98-107 [place] Work Phone: Eosinophils/100 WBC (Bld) 1.5 % 0-5 [facility] Work Phone: Glucose [Mass/Vol] 109 mg/dL 74-106 [facility] Work Phone: Comment on above: Fasting Glucose resu lt from 100 to 125 mg/dL suggests IMPAIRED HOMEOSTASIS per A.D.A. criteria. Neutrophils (Bld) [#/Vol] 8.4 10*3/uL 2.0-7.7 [facility] Work Phone: Neutrophils/100 WBC (Bld) 75.8 % 47-70 [facility] Work Phone: Potassium [Moles/Vol] 3.8 mmol/L 3.5-5.1 [facility] Work Phone: Protein [Mass/Vol] 6.4 g/dL 6.4-8.2 [facility] Work Phone: Sodium [Moles/Vol] 140 mmol/L 136-145 [facility] Work Phone: WBC (Bld) [#/Vol] 11.1 10*3/uL 4.4-11.0 [facility] Work Phone: Blood erythrocytes count (nu mber/volume)on 03-18-2022 RBC (Bld) [#/Vol] 4.28 10*6/uL 4.2-5.4 [facility] Work Phone: Blood hemoglobin measurement (mass/volume)on 03-18-2022 Hemoglobin (Bld) [Mass/Vol] 14.6 g/dL 12.0-15.0 [facility] Work Phone: Blood lymphocytes/100 leukoc yteson 03-18-2022 Lymphocytes/100 WBC (Bld) 11.7 % 19-41 [facility] Work Phone: Blood monocytes/100 leukocyt eson 03-18-2022 Monocytes/100 WBC (Bld) 10.2 % 0-10 [facility] Work Phone: Blood platelet mean volumeon 03-18-2022 Platelet mean volume (Bld) [Entitic vol] 8.8 fL 6.2-12.0 [facility] Work Phone: Determination of erythrocyte mean corpuscular volume (MCV)on 03-18-2022 MCV (RBC) [Entitic vol] 102.1 fL 81-99 [facility] Work Phone: Hematocrit Auto (Bld) [Volum e fraction]on 03-18-2022 Hematocrit (Bld) [Volume fraction] 43.7 % 37-47 [facility] Work Phone: Laboratory - Chemistry and C hemistry - challengeon 03-18-2022 ALP [Catalytic activity/Vol] 91 U/L 45-117 [facility] Work Phone: ALT [Catalytic activity/Vol] 15 U/L 13-56 [facility] Work Phone: CO2 [Moles/Vol] 27.0 mmol/L 21.0-32.0 [facility] Work Phone: Globulin (S) [Mass/Vol] 3.4 g/dL 2.2-4.2 [facility] Work Phone: Urea nitrogen/Creatinine [Mass ratio] 11.9 mg/mg 10-20 [facility] Work Phone: Laboratory - Hematology and Cell countson 03-18-2022 Erythrocyte distribution width (RBC) [Entitic vol] 47.5 fL 35.1-43.9 [facility] Work Phone: Erythrocyte distribution width (RBC) [Ratio] 12.5 % 11.6-14.6 [facility] Work Phone: Immature granulocytes/100 WBC (Bld) 0.300 % 0.0-0.9 [facility] Work Phone: Comment on above: IG% - Immature Granu locytes (promyelocytes, myelocytes and metamyelocytes) > 1% indicates that a LEFT SHIFT is Present. MCH (RBC) [Entitic mass] 34.1 pg 27.0-32.0 [facility] Work Phone: Nucleated RBC/100 WBC (Bld) [Ratio] 0 % 0-5 [facility] Work Phone: MCHC Auto (RBC) [Mass/Vol]on 03-18-2022 MCHC (RBC) [Mass/Vol] 33.4 g/dL 32-36 [facility] Work Phone: No Panel Informationon 03-18 Estimated Creatinine Clearance Calc 36.87 ml/min [facility] Work Phone: Estimated GFR (MDRD) Amer 132 mL/min >60 [facility] Work Phone: Comment on above: GFR Calc Estimated GFR (MDRD) Non-Af Amer 109 mL/min >60 [facility] Work Phone: Comment on above: Non- GFR Calc Platelets bldon 03-18-2022 Platelets (Bld) [#/Vol] 277 10*3/uL 150-450 [facility] Work Phone: Serum or plasma albumin alonso urement (mass/volume)on 03-18-2022 Albumin [Mass/Vol] 3.0 g/dL 3.2-5.0 [facility] Work Phone: [phone] Serum or plasma albumin/glob ulin mass ratioon 03-18-2022 Albumin/Globulin [Mass ratio] 0.9 {ratio} 0.9-2.4 [facility] Work Phone: [phone] Serum or plasma calcium alonso urement (mass/volume)on 03-18-2022 Calcium [Mass/Vol] 7.7 mg/dL 8.5-10.1 [facility] Work Phone: [phone] Serum or plasma creatinine m easurement (mass/volume)on 03-18-2022 Creatinine [Mass/Vol] 0.59 mg/dL 0.55-1.02 [facility] Work Phone: Comment on above: The validity of the calculated GFR & GFRAA in patients over 70 years has not been determined. Clinical correlation is essential. Serum or plasma urea nitroge n measurement (mass/volume)on 03-18-2022 Urea nitrogen [Mass/Vol] 7 mg/dL 7-18 [facility] Work Phone: Thin prep Papanicolaou smear with manual screeningon 03-18-2022 Thin prep Papanicolaou smear with manual screening 16 U/L 15-37 [facility] Work Phone: Thin prep Papanicolaou smear with manual screening 4 5-15 [facility] Work Phone: Absolute lymphocyte counton 03-17-2022 Lymphocytes Auto (Unsp spec) [#/Vol] 1.49 10*3/uL 0.83-4.51 [facility] Work Phone: Basophil percentageon 2021 Basophil percentage 2.9 mg/dL 2.5-4.9 [facility] Work Phone: Basophils/100 WBC (Bld) 0.6 % 0-1 [facility] Work Phone: Bilirubin [Mass/Vol] 0.40 mg/dL 0.20-1.00 [place] Work Phone: Comment on above: For patients on eltr ombopag therapy, use of Dimension [place] TBIL is not recommended. Chloride [Moles/Vol] 104 mmol/L 98-107 [place] Work Phone: Eosinophils/100 WBC (Bld) 1.7 % 0-5 [facility] Work Phone: Glucose [Mass/Vol] 128 mg/dL 74-106 [facility] Work Phone: Comment on above: Fasting Glucose resu lt greater than or equal to 126 mg/dL suggests DIABETES MELLITUS per A.D.A. criteria. Lactate [Moles/Vol] 0.6 mmol/L 0.4-2.0 [facility] Work Phone: Neutrophils (Bld) [#/Vol] 8.7 10*3/uL 2.0-7.7 [facility] Work Phone: Neutrophils/100 WBC (Bld) 75.8 % 47-70 [facility] Work Phone: Potassium [Moles/Vol] 3.8 mmol/L 3.5-5.1 [facility] Work Phone: Protein [Mass/Vol] 7.3 g/dL 6.4-8.2 [facility] Work Phone: Sodium [Moles/Vol] 138 mmol/L 136-145 [facility] Work Phone: WBC (Bld) [#/Vol] 11.5 10*3/uL 4.4-11.0 [facility] Work Phone: Bilirubin Test strip Ql (U)o n 03-17-2022 Bilirubin Ql (U) Negative Negative [facility] Work Phone: Blood erythrocytes count (nu mber/volume)on 03-17-2022 RBC (Bld) [#/Vol] 4.68 10*6/uL 4.2-5.4 [facility] Work Phone: Blood hemoglobin measurement (mass/volume)on 03-17-2022 Hemoglobin (Bld) [Mass/Vol] 15.9 g/dL 12.0-15.0 [facility] Work Phone: Blood lymphocytes/100 leukoc yteson 03-17-2022 Lymphocytes/100 WBC (Bld) 12.9 % 19-41 [facility] Work Phone: Blood monocytes/100 leukocyt eson 03-17-2022 Monocytes/100 WBC (Bld) 8.7 % 0-10 [facility] Work Phone: Blood platelet mean volumeon 03-17-2022 Platelet mean volume (Bld) [Entitic vol] 9.0 fL 6.2-12.0 [facility] Work Phone: Determination of erythrocyte mean corpuscular volume (MCV)on 03-17-2022 MCV (RBC) [Entitic vol] 100.9 fL 81-99 [facility] Work Phone: [phone] Hematocrit Auto (Bld) [Volum e fraction]on 03-17-2022 Hematocrit (Bld) [Volume fraction] 47.2 % 37-47 [facility] Work Phone: [phone] Ketones Test strip Ql (U)on 03-17-2022 Ketones Ql (U) 5 mg/dl Negative [facility] Work Phone: Laboratory - Chemistry and C hemistry - challengeon 03-17-2022 ALP [Catalytic activity/Vol] 101 U/L 45-117 [facility] Work Phone: ALT [Catalytic activity/Vol] 19 U/L 13-56 [facility] Work Phone: CO2 [Moles/Vol] 28.0 mmol/L 21.0-32.0 [facility] Work Phone: Globulin (S) [Mass/Vol] 3.7 g/dL 2.2-4.2 [facility] Work Phone: [phone] Lipase [Catalytic activity/Vol] 212 U/L 73-393 [facility] Work Phone: [phone] Magnesium [Mass/Vol] 2.2 mg/dL 1.6-2.6 [place] Work Phone: [phone] Comment on above: Moderate Hemolysis, Result may be falsely increased. Urea nitrogen/Creatinine [Mass ratio] 16.2 mg/mg 10-20 [facility] Work Phone: [phone] Laboratory - Hematology and Cell countson 03-17-2022 Erythrocyte distribution width (RBC) [Entitic vol] 46.3 fL 35.1-43.9 [facility] Work Phone: [phone] Erythrocyte distribution width (RBC) [Ratio] 12.3 % 11.6-14.6 [facility] Work Phone: Immature granulocytes/100 WBC (Bld) 0.300 % 0.0-0.9 [facility] Work Phone: Comment on above: IG% - Immature Granu locytes (promyelocytes, myelocytes and metamyelocytes) > 1% indicates that a LEFT SHIFT is Present. MCH (RBC) [Entitic mass] 34.0 pg 27.0-32.0 [facility] Work Phone: Nucleated RBC/100 WBC (Bld) [Ratio] 0 % 0-5 [facility] Work Phone: [phone] MCHC Auto (RBC) [Mass/Vol]on 03-17-2022 MCHC (RBC) [Mass/Vol] 33.7 g/dL 32-36 [facility] Work Phone: [phone] Nitrite Test strip Ql (U)on 03-17-2022 Nitrite Ql (U) Negative Negative [facility] Work Phone: No Panel Informationon 03-17 Estimated Creatinine Clearance Calc 37.64 ml/min [facility] Work Phone: Estimated GFR (MDRD) Amer 101 mL/min >60 [facility] Work Phone: Comment on above: GFR Calc Estimated GFR (MDRD) Non-Af Amer 83 mL/min >60 [facility] Work Phone: Comment on above: Non- GFR Calc Platelets bldon 03-17-2022 Platelets (Bld) [#/Vol] 331 10*3/uL 150-450 [facility] Work Phone: Protein Test strip Ql (U)on 03-17-2022 Protein Ql (U) Negative Negative [facility] Work Phone: [phone] Serum or plasma albumin alonso urement (mass/volume)on 03-17-2022 Albumin [Mass/Vol] 3.6 g/dL 3.2-5.0 [facility] Work Phone: [phone] Serum or plasma albumin/glob ulin mass ratioon 03-17-2022 Albumin/Globulin [Mass ratio] 1.0 {ratio} 0.9-2.4 [facility] Work Phone: Serum or plasma calcium alonso urement (mass/volume)on 03-17-2022 Calcium [Mass/Vol] 8.9 mg/dL 8.5-10.1 [facility] Work Phone: Serum or plasma creatinine m easurement (mass/volume)on 03-17-2022 Creatinine [Mass/Vol] 0.74 mg/dL 0.55-1.02 [facility] Work Phone: Comment on above: The validity of the calculated GFR & GFRAA in patients over 70 years has not been determined. Clinical correlation is essential. Serum or plasma urea nitroge n measurement (mass/volume)on 03-17-2022 Urea nitrogen [Mass/Vol] 12 mg/dL 7-18 [facility] Work Phone: Thin prep Papanicolaou smear with manual screeningon 03-17-2022 Thin prep Papanicolaou smear with manual screening 17 U/L 15-37 [facility] Work Phone: Thin prep Papanicolaou smear with manual screening 6 5-15 [facility] Work Phone: Urine blood detectionon 03-02 RBC Ql (U) 25 /ul Negative [facility] Work Phone: Urine clarityon 03-17-2022 Clarity (U) Clear Clear [facility] Work Phone: Urine color determinationon 03-17-2022 Color (U) Yellow Yellow [facility] Work Phone: Urine glucose detectionon Glucose Ql (U) Normal mg/dl Normal [facility] Work Phone: Urine leukocyte esterase det ection by dipstickon 03-17-2022 Leukocyte esterase Test strip Ql (U) Negative Negative [facility] Work Phone: Urine pHon 03-17-2022 pH (U) 6.0 [pH] 5.0 - 8.0 [facility] Work Phone: Urine specific gravity measu rementon 03-17-2022 Specific gravity (U) [Rel density] 1.010 1.002-1.030 [facility] Work Phone: Urobilinogen Auto test strip Ql (U)on 03-17-2022 Urobilinogen Ql (U) Normal mg/dl Normal [facility] Work Phone: XR SACRUM/COCCYX 3V AP/LATon 03-14-2022 [facility] XR Sacrum and Coccyx 3 Views on 03-14-2022 IMPRESSION: No acute radiographic abnormalities seen in the sacrum/coccyx. Curator Of Manuscripts: LEONARDO Transcribe Date/Time: Mar 14 2022 11:12A Dictated by : LAURIE KAYE MD This examination was interpreted and the report reviewed and electronically signed by: LAURIE KAYE MD on Mar 14 2022 11:14AM EST [id number] _DIVISION OF RADIOLOGY * * *Final Report* * [...] narrowing. Status post L4 and L5 laminectomy. [id number] _DIVISION OF RADIOLOGY Provider, [facility] Cristal reza [place] - 03/14/2022 * * *Final Report* * [...] acute radiographic abnormalities seen in the sacrum/coccyx. Curator Of Manuscripts: [facility] Transcribe Date/Time: Mar 14 2022 11:12A Dictated by : LAURIE KAYE MD This examination was interpreted and the report reviewed and electronically signed by: LAURIE KAYE MD on Mar 14 2022 11:14AM [facility] Radiology Study observation (narrative) [facility] XR Sacrum and Coccyx 3 Views Ordered By: Ccf Provider on 03-14-2022 [facility] XR Chest PA and Lateralon IMPRESSION: No acute radiographic abnormality. Curator Of Manuscripts[facility] Transcribe Date/Time: Dec 27 2020 10:19A Dictated by : CECILIO GAVIRIA MD This examination was interpreted and the report reviewed and electronically signed by: CECILIO GAVIRIA MD on Dec 27 2020 10:20AM [facility] DIVISION OF RADIOLOGY * * *Final [...] Degenerative change. Osteopenia DIVISION OF RADIOLOGY Provider, [facility] Cristal Messer - 12/27/2020 * * *Final Report* * [...] Osteopenia IMPRESSION IMPRESSION: No acute radiographic abnormality. Curator Of Manuscripts: LEONARDO Transcribe Date/Time: Dec 27 2020 10:19A Dictated by : CECILIO GAVIRIA MD This examination was interpreted and the report reviewed and electronically signed by: CECILIO GAVIRIA MD on Dec 27 2020 10:20AM [facility] Radiology Study observation (narrative) [facility] XR Chest PA and LateralOrder ed By: Ccf Provider on 12-27-2020 [facility] XR Pelvis and Hip - left AP and Lateral frogon 12-17-2020 IMPRESSION: No acute findings radiographically. Postoperative and degenerative changes lower lumbar spine. Curator Of Manuscripts: [facility] Transcribe Date/Time: Dec 17 2020 10:28A Dictated by : TOI MACK MD This examination was interpreted and the report reviewed and electronically signed by: TOI MACK MD on Dec 17 2020 10:33AM [facility] DIVISION OF RADIOLOGY * * *Final [...] lumbar decompressive laminectomies. DIVISION OF RADIOLOGY Provider, Elder reza [place] - 12/17/2020 * * *Final Report* * [...] Postoperative and degenerative changes lower lumbar spine. Curator Of Manuscripts: LEONARDO Transcribe Date/Time: Dec 17 2020 10:28A Dictated by : TOI MACK MD This examination was interpreted and the report reviewed and electronically signed by: TOI MACK MD on Dec 17 2020 10:33AM [facility] Radiology Study observation (narrative) [facility] XR Pelvis and Hip - left AP and Lateral frogOrdered By: Cc Provider on 12-17-2020 [facility] XR Chest PA and Lateralon IMPRESSION: no active cardiopulmonary disease Curator Of Manuscripts: PSCB Transcribe Date/Time: Jul 23 2020 9:03P Dictated by : TOÑO GARCIA MD This examination was interpreted and the report reviewed and electronically signed by: TOÑO GARCIA MD on Jul 23 2020 9:04PM [facility] DIVISION OF RADIOLOGY * * *Final [...] right DIVISION OF RADIOLOGY Provider, Elder Bee [facility] - 07/23/2020 * * *Final Report* * [...] right IMPRESSION IMPRESSION: no active cardiopulmonary disease Curator Of Manuscripts: PSCB Transcribe Date/Time: Jul 23 2020 9:03P Dictated by : TOÑO GARCIA MD This examination was interpreted and the report reviewed and electronically signed by: TOÑO GARCIA MD on Jul 23 2020 9:04PM EST [facility] Radiology Study observation (narrative) [facility] XR Chest PA and LateralOrder ed By: Ccf Provider on 07-23-2020 [facility] Vital Signs Date Time Vital Sign Value Performing Clinician Facility 06-08-2025 10:39-0400 Body height 144.[address] Rito Camp MD Work Phone: [facility] 06-08-2025 10:39-0400 Body mass index (BMI) [Ratio] 19.3 kg/m2 Dr. Rito Camp MD Work Phone: [facility] 06-08-2025 10:39-0400 Body weight 40.[address] Rito Camp MD Work Phone: [facility] 05-16-2025 12:07-0400 Body mass index (BMI) [Ratio] 20.12 kg/m2 Ky Shaver APPLICATION PACKAGER.GRAVEL SCREENER Work Phone: [facility] 05-16-2025 12:07-0400 Body temperature 99.1 [degF] Ky Moomaw APPLICATION PACKAGER.GRAVEL SCREENER Work Phone: [facility] 05-16-2025 12:07-0400 Body weight 40.7 kg Ky Moomaw APPLICATION PACKAGER.GRAVEL SCREENER Work Phone: [facility] 05-16-2025 12:07-0400 Diastolic blood pressure 80 mm[Hg] Ky Moomaw APPLICATION PACKAGER.GRAVEL SCREENER Work Phone: [facility] 05-16-2025 12:07-0400 Heart rate 94 /min Ky Moomaw APPLICATION PACKAGER.GRAVEL SCREENER Work Phone: [facility] 05-16-2025 12:07-0400 Respiratory rate 18 /min Ky Moomaw APPLICATION PACKAGER.GRAVEL SCREENER Work Phone: [facility] 05-16-2025 12:07-0400 SaO2% (BldA) [Mass fraction] 99 % Ky Moomaw APPLICATION PACKAGER.GRAVEL SCREENER Work Phone: [facility] 05-16-2025 12:07-0400 Systolic blood pressure 130 mm[Hg] Ky Moomaw APPLICATION PACKAGER.GRAVEL SCREENER Work Phone: [facility] 05-14-2025 10:19-0400 Body mass index (BMI) [Ratio] 19.77 kg/m2 Alex Brown APPLICATION PACKAGER.GRAVEL SCREENER Work Phone: [facility] 05-14-2025 10:19-0400 Body weight 40 kg Alex Brown APPLICATION PACKAGER.GRAVEL SCREENER Work Phone: [facility] 05-14-2025 10:19-0400 Diastolic blood pressure 74 mm[Hg] Alex Brown APPLICATION PACKAGER.GRAVEL SCREENER Work Phone: [facility] 05-14-2025 10:19-0400 Heart rate 86 /min Alex Brown APPLICATION PACKAGER.GRAVEL SCREENER Work Phone: [facility] 05-14-2025 10:19-0400 Systolic blood pressure 153 mm[Hg] Alex Brown APRN.CNP Work Phone: [facility] 05-04-2025 08:58-0400 Body height 142.2 cm Shanita Green PA-C Work Phone: [facility] 05-04-2025 08:58-0400 Body mass index (BMI) [Ratio] 20.67 kg/m2 Shanita Green PA-C Work Phone: [facility] 05-04-2025 08:58-0400 Body weight 41.82 kg Shanita Green PA-C Work Phone: [facility] 05-04-2025 08:58-0400 Diastolic blood pressure 70 mm[Hg] Shanita Green PA-C Work Phone: [facility] 05-04-2025 08:58-0400 Heart rate 81 /min Shanita Green PA-C Work Phone: [facility] 05-04-2025 08:58-0400 Respiratory rate 14 /min Shanita Green PA-C Work Phone: [facility] 05-04-2025 08:58-0400 SaO2% (BldA) [Mass fraction] 95 % Shanita Green PA-C Work Phone: [facility] 05-04-2025 08:58-0400 Systolic blood pressure 130 mm[Hg] Shanita Green PA-C Work Phone: [facility] 04-20-2025 10:26-0400 Body height 144.[address] Rito Camp MD Work Phone: [facility] 04-20-2025 10:26-0400 Body mass index (BMI) [Ratio] 19.9 kg/m2 Dr. Rito Camp MD Work Phone: [facility] 04-20-2025 10:26-0400 Body weight 41.[address] Rito Camp MD Work Phone: [facility] 03-31-2025 09:23-0400 Body temperature 98.4 [degF] Dr. Rito Camp MD Work Phone: 2(996)517-169116 [place] [address] 03-31-2025 09:23-0400 Diastolic blood pressure 76 mm[Hg] Dr. Rito Camp MD Work Phone: 7(970)796-841644 [place] [address] 03-31-2025 09:23-0400 Heart rate 75 /min Dr. Rito Camp MD Work Phone: 9(829)176-634144 [place] [address] 03-31-2025 09:23-0400 Respiratory rate 16 /min Dr. Rito Camp MD Work Phone: 8(788)627-373544 [place] [address] 03-31-2025 09:23-0400 SaO2% (BldA) [Mass fraction] 94 % Dr. Rito Camp MD Work Phone: 4(755)614-059044 [place] [address] 03-31-2025 09:23-0400 Systolic blood pressure 119 mm[Hg] Dr. Rito Camp MD Work Phone: 8(087)750-346944 [place] [address] 03-31-2025 07:10-0400 Body height 144.[address] Rito Camp MD Work Phone: 8(926)212-808744 [place] [address] 03-31-2025 07:10-0400 Body mass index (BMI) [Ratio] 19.5 kg/m2 Dr. Rito Camp MD Work Phone: 8(056)906-887944 [place] [address] 03-31-2025 07:10-0400 Body weight 40.[address] Rito Camp MD Work Phone: 9(703)729-031544 [place] [address] 03-15-2025 09:52-0400 Body temperature 98.71 [degF] Shanita Green PA-C Work Phone: 8(018)998-767745 [place] [address] 03-15-2025 09:52-0400 Diastolic blood pressure 80 mm[Hg] Shanita Green PA-C Work Phone: [facility] 03-15-2025 09:52-0400 Heart rate 86 /min Shanita Green PA-C Work Phone: [facility] 03-15-2025 09:52-0400 Respiratory rate 16 /min Shanita Green PA-C Work Phone: [facility] 03-15-2025 09:52-0400 SaO2% (BldA) [Mass fraction] 96 % Shanita Green PA-C Work Phone: [facility] 03-15-2025 09:52-0400 Systolic blood pressure 110 mm[Hg] Shanita Green PA-C Work Phone: [facility] 02-09-2025 07:42-0400 Body height 144.[address] Rito Camp MD Work Phone: 5(408)769-462416 [place] [address] 02-09-2025 07:42-0400 Body mass index (BMI) [Ratio] 19 kg/m2 Dr. Rito Camp MD Work Phone: 7(556)599-871444 [place] [address] 02-09-2025 07:42-0400 Body temperature 96.4 [degF] Dr. Rito Camp MD Work Phone: 3(510)848-617144 [place] [address] 02-09-2025 07:42-0400 Body weight 39.[address] Rito Camp MD Work Phone: 3(857)347-710044 [place] [address] 02-09-2025 07:42-0400 Diastolic blood pressure 88 mm[Hg] Dr. Rito Camp MD Work Phone: 7(873)654-512316 [place] [address] 02-09-2025 07:42-0400 Heart rate 83 /min Dr. Rito Camp MD Work Phone: 6(729)394-394716 [place] [address] 02-09-2025 07:42-0400 Respiratory rate 16 /min Dr. Rito Camp MD Work Phone: 1(188)853-182344 [place] [address] 02-09-2025 07:42-0400 SaO2% (BldA) [Mass fraction] 95 % Dr. Rito Camp MD Work Phone: 4(181)680-504616 [place] [address] 02-09-2025 07:42-0400 Systolic blood pressure 132 mm[Hg] Dr. Rito Camp MD Work Phone: 0(968)609-478316 [place] [address] 01-05-2025 09:52-0400 Body mass index (BMI) [Ratio] 19.76 kg/m2 Shanita Green PA-C Work Phone: [facility] 01-05-2025 09:52-0400 Body temperature 97.81 [degF] Shanita Green PA-C Work Phone: [facility] 01-05-2025 09:52-0400 Body weight 39.97 kg Shanita Green PA-C Work Phone: [facility] 01-05-2025 09:52-0400 Diastolic blood pressure 82 mm[Hg] Shanita Green PA-C Work Phone: [facility] 01-05-2025 09:52-0400 Heart rate 77 /min Shanita Green PA-C Work Phone: [facility] 01-05-2025 09:52-0400 Respiratory rate 16 /min Shanitajonelle Green PA-C Work Phone: [facility] 01-05-2025 09:52-0400 SaO2% (BldA) [Mass fraction] 96 % Shanita Green PA-C Work Phone: [facility] 01-05-2025 09:52-0400 Systolic blood pressure 118 mm[Hg] Shanitaskyla Green PA-C Work Phone: [facility] 10-01-2024 10:15-0500 Body height 142.2 cm Rito Camp MD Work Phone: [facility] 10-01-2024 10:15-0500 Body mass index (BMI) [Ratio] 20.49 kg/m2 Rito Camp MD Work Phone: [facility] 10-01-2024 10:15-0500 Body weight 41.46 kg Rito Camp MD Work Phone: [facility] 10-01-2024 10:15-0500 Diastolic blood pressure 77 mm[Hg] Rito Camp MD Work Phone: [facility] 10-01-2024 10:15-0500 Heart rate 83 /min Rito Camp MD Work Phone: [facility] 10-01-2024 10:15-0500 Systolic blood pressure 138 mm[Hg] Rito Camp MD Work Phone: 0(765)097-934045 [place] [address] 09-15-2024 08:02-0500 Body height 144.[address] Rito Camp MD Work Phone: 3(800)022-383144 [place] [address] 09-15-2024 08:02-0500 Body mass index (BMI) [Ratio] 19.9 kg/m2 Dr. Rito Camp MD Work Phone: 1(120)620-481244 [place] [address] 09-15-2024 08:02-0500 Body temperature 97 [degF] Dr. Rito Camp MD Work Phone: 8(970)483-981244 [place] [address] 09-15-2024 08:02-0500 Body weight 41.[address] Rito Camp MD Work Phone: 4(798)123-570544 [place] [address] 09-15-2024 08:02-0500 Diastolic blood pressure 80 mm[Hg] Dr. Rito Camp MD Work Phone: 1(492)664-732644 [place] [address] 09-15-2024 08:02-0500 Heart rate 85 /min Dr. Rito Camp MD Work Phone: 9(956)704-494044 [place] [address] 09-15-2024 08:02-0500 Respiratory rate 20 /min Dr. Rito Camp MD Work Phone: 1(706)731-540744 [place] [address] 09-15-2024 08:02-0500 SaO2% (BldA) [Mass fraction] 95 % Dr. Rito Camp MD Work Phone: 0(367)846-082816 [place] [address] 09-15-2024 08:02-0500 Systolic blood pressure 127 mm[Hg] Dr. Rito Camp MD Work Phone: 4(634)792-180444 [place] [address] 08-03-2024 09:16-0500 Body mass index (BMI) [Ratio] 19.91 kg/m2 Alex Brown APRN.CNP Work Phone: 4(442)110-147045 [place] [address] 08-03-2024 09:16-0500 Body weight 41.73 kg Alex Brown APRN.GRAVEL SCREENER Work Phone: [facility] 08-03-2024 09:16-0500 Diastolic blood pressure 78 mm[Hg] Alex Brown APRN.GRAVEL SCREENER Work Phone: [facility] 08-03-2024 09:16-0500 Heart rate 79 /min Alex Brown APRN.GRAVEL SCREENER Work Phone: [facility] 08-03-2024 09:16-0500 Systolic blood pressure 135 mm[Hg] Alex Brown APRN.GRAVEL SCREENER Work Phone: [facility] 07-31-2024 10:45-0500 Body mass index (BMI) [Ratio] 19.66 kg/m2 Shanna Newton APRN.GRAVEL SCREENER Work Phone: [facility] 07-31-2024 10:45-0500 Body temperature 99.3 [degF] Shanna Newton APRN.GRAVEL SCREENER Work Phone: [facility] 07-31-2024 10:45-0500 Body weight 41.2 kg Shanna Newton APRN.GRAVEL SCREENER Work Phone: [facility] 07-31-2024 10:45-0500 Diastolic blood pressure 88 mm[Hg] Shanna Newton APRN.GRAVEL SCREENER Work Phone: [facility] 07-31-2024 10:45-0500 Heart rate 96 /min Shanna Newton APRN.GRAVEL SCREENER Work Phone: [facility] 07-31-2024 10:45-0500 Respiratory rate 20 /min Shanna Newton APRN.GRAVEL SCREENER Work Phone: [facility] 07-31-2024 10:45-0500 SaO2% (BldA) [Mass fraction] 92 % Shanna Newton APRN.GRAVEL SCREENER Work Phone: [facility] 07-31-2024 10:45-0500 Systolic blood pressure 148 mm[Hg] Shanna Newton APRN.GRAVEL SCREENER Work Phone: [facility] 06-07-2024 11:08-0400 Body mass index (BMI) [Ratio] 18.84 kg/m2 Shanna Newton APRN.GRAVEL SCREENER Work Phone: [facility] 06-07-2024 11:08-0400 Body temperature 98.8 [degF] Shanna Newton APRN.GRAVEL SCREENER Work Phone: [facility] 06-07-2024 11:08-0400 Body weight 39.5 kg Shanna Newton APRN.GRAVEL SCREENER Work Phone: [facility] 06-07-2024 11:08-0400 Diastolic blood pressure 84 mm[Hg] Shanna Newton APRN.GRAVEL SCREENER Work Phone: [facility] 06-07-2024 11:08-0400 Heart rate 99 /min Shanna Newton APRN.GRAVEL SCREENER Work Phone: [facility] [facility] 06-07-2024 11:08-0400 Respiratory rate 22 /min Shanna Newton APRN.GRAVEL SCREENER Work Phone: [facility] 06-07-2024 11:08-0400 SaO2% (BldA) [Mass fraction] 95 % Shanna Newton APRN.GRAVEL SCREENER Work Phone: [facility] 06-07-2024 11:08-0400 Systolic blood pressure 154 mm[Hg] Shanna Newton APRN.GRAVEL SCREENER Work Phone: [facility] 06-05-2024 13:09-0400 Body mass index (BMI) [Ratio] 19.04 kg/m2 Rito Camp MD Work Phone: [facility] 06-05-2024 13:09-0400 Body weight 39.92 kg Rito Camp MD Work Phone: [facility] 06-05-2024 13:09-0400 Diastolic blood pressure 86 mm[Hg] Rito Camp MD Work Phone: [facility] 06-05-2024 13:09-0400 Heart rate 82 /min Rito Camp MD Work Phone: [facility] 06-05-2024 13:09-0400 Respiratory rate 16 /min Rito Camp MD Work Phone: [facility] 06-05-2024 13:09-0400 Systolic blood pressure 132 mm[Hg] Rito Camp MD Work Phone: [facility] 06-03-2024 09:58-0400 Body mass index (BMI) [Ratio] 19.37 kg/m2 Mary Ann Dukes APPLICATION PACKAGER.GRAVEL SCREENER Work Phone: [facility] 06-03-2024 09:58-0400 Body temperature 98.49 [degF] Mary Ann Dukes APPLICATION PACKAGER.GRAVEL SCREENER Work Phone: [facility] 06-03-2024 09:58-0400 Body weight 40.6 kg Mary Ann Dukes APPLICATION PACKAGER.GRAVEL SCREENER Work Phone: [facility] 06-03-2024 09:58-0400 Diastolic blood pressure 88 mm[Hg] Mary Ann Dukes APPLICATION PACKAGER.GRAVEL SCREENER Work Phone: [facility] 06-03-2024 09:58-0400 Heart rate 85 /min Mary Ann Dukes APPLICATION PACKAGER.GRAVEL SCREENER Work Phone: [facility] 06-03-2024 09:58-0400 Respiratory rate 20 /min Mary Ann Dukes APPLICATION PACKAGER.GRAVEL SCREENER Work Phone: [facility] 06-03-2024 09:58-0400 SaO2% (BldA) [Mass fraction] 94 % Mary Ann Dukes APPLICATION PACKAGER.GRAVEL SCREENER Work Phone: [facility] 06-03-2024 09:58-0400 Systolic blood pressure 142 mm[Hg] Mary Ann Dukes APPLICATION PACKAGER.GRAVEL SCREENER Work Phone: [facility] 04-14-2024 09:51-0400 Body mass index (BMI) [Ratio] 19.26 kg/m2 Alex Brown APPLICATION PACKAGER.GRAVEL SCREENER Work Phone: [facility] 04-14-2024 09:51-0400 Body weight 40.37 kg Alex Brown APPLICATION PACKAGER.GRAVEL SCREENER Work Phone: [facility] 04-14-2024 09:51-0400 Diastolic blood pressure 73 mm[Hg] Alex Brown APPLICATION PACKAGER.GRAVEL SCREENER Work Phone: [facility] 04-14-2024 09:51-0400 Heart rate 98 /min Alex Brown APPLICATION PACKAGER.GRAVEL SCREENER Work Phone: [facility] 04-14-2024 09:51-0400 Respiratory rate 14 /min Alex Brown APPLICATION PACKAGER.GRAVEL SCREENER Work Phone: [facility] 04-14-2024 09:51-0400 Systolic blood pressure 143 mm[Hg] Alex Brown APPLICATION PACKAGER.GRAVEL SCREENER Work Phone: [facility] 03-26-2024 11:33-0400 Body mass index (BMI) [Ratio] 19.69 kg/m2 Alex Brown APPLICATION PACKAGER.GRAVEL SCREENER Work Phone: [facility] 03-26-2024 11:33-0400 Body weight 41.28 kg Alex Brown APPLICATION PACKAGER.GRAVEL SCREENER Work Phone: [facility] 03-26-2024 11:33-0400 Diastolic blood pressure 86 mm[Hg] Alex Brown APPLICATION PACKAGER.GRAVEL SCREENER Work Phone: [facility] 03-26-2024 11:33-0400 Heart rate 92 /min lAex Brown APPLICATION PACKAGER.GRAVEL SCREENER Work Phone: [facility] 03-26-2024 11:33-0400 Respiratory rate 14 /min Alex Brown APPLICATION PACKAGER.GRAVEL SCREENER Work Phone: [facility] 03-26-2024 11:33-0400 Systolic blood pressure 150 mm[Hg] Alex Brown APPLICATION PACKAGER.GRAVEL SCREENER Work Phone: [facility] 03-18-2024 10:42-0400 Body mass index (BMI) [Ratio] 19.91 kg/m2 Sweetie Romeo APPLICATION PACKAGER.GRAVEL SCREENER Work Phone: [facility] 03-18-2024 10:42-0400 Body temperature 98.91 [degF] Sweetie Romeo APPLICATION PACKAGER.GRAVEL SCREENER Work Phone: [facility] 03-18-2024 10:42-0400 Body weight 41.73 kg Sweetie Podlogar APPLICATION PACKAGER.GRAVEL SCREENER Work Phone: [facility] 03-18-2024 10:42-0400 Diastolic blood pressure 76 mm[Hg] Sweetie Podlogar APPLICATION PACKAGER.GRAVEL SCREENER Work Phone: [facility] 03-18-2024 10:42-0400 Heart rate 79 /min Sweetie Podlogar APPLICATION PACKAGER.GRAVEL SCREENER Work Phone: [facility] 03-18-2024 10:42-0400 Respiratory rate 18 /min Sweetie Podlogar APPLICATION PACKAGER.GRAVEL SCREENER Work Phone: [facility] 03-18-2024 10:42-0400 SaO2% (BldA) [Mass fraction] 94 % Sweetie Podlogar APPLICATION PACKAGER.GRAVEL SCREENER Work Phone: [facility] 03-18-2024 10:42-0400 Systolic blood pressure 142 mm[Hg] Sweetie Podlogar APPLICATION PACKAGER.GRAVEL SCREENER Work Phone: [facility] 01-01-2024 07:45-0400 Body height 144.[address] Rito Camp Work Phone: [facility] 01-01-2024 07:45-0400 Body mass index (BMI) [Ratio] 19.5 kg/m2 Dr. Rito Camp Work Phone: [facility] 01-01-2024 07:45-0400 Body temperature 96.9 [degF] Dr. Rito Camp Work Phone: [facility] 01-01-2024 07:45-0400 Body weight 40.[address] Rito aCmp Work Phone: [facility] 01-01-2024 07:45-0400 Diastolic blood pressure 77 mm[Hg] Dr. Rito Camp Work Phone: [facility] 01-01-2024 07:45-0400 Heart rate 90 /min Dr. Rito Camp Work Phone: [facility] 01-01-2024 07:45-0400 Respiratory rate 20 /min Dr. Rito Camp Work Phone: [facility] 01-01-2024 07:45-0400 SaO2% (BldA) [Mass fraction] 95 % Dr. Rito Camp Work Phone: [facility] 01-01-2024 07:45-0400 Systolic blood pressure 135 mm[Hg] Dr. Rito Camp Work Phone: [facility] 12-23-2023 09:58-0400 Body mass index (BMI) [Ratio] 19.75 kg/m2 Mary Ann Dukes APPLICATION PACKAGER.GRAVEL SCREENER Work Phone: [facility] 12-23-2023 09:58-0400 Body temperature 99.1 [degF] Mary Ann Dukes APPLICATION PACKAGER.GRAVEL SCREENER Work Phone: [facility] 12-23-2023 09:58-0400 Body weight 41.4 kg Mary Ann Dukes APPLICATION PACKAGER.GRAVEL SCREENER Work Phone: [facility] 12-23-2023 09:58-0400 Diastolic blood pressure 86 mm[Hg] Mary Ann Dukes APPLICATION PACKAGER.GRAVEL SCREENER Work Phone: [facility] 12-23-2023 09:58-0400 Heart rate 105 /min Mary Ann Dukes APPLICATION PACKAGER.GRAVEL SCREENER Work Phone: [facility] 12-23-2023 09:58-0400 Respiratory rate 21 /min Mary Ann Dukes APPLICATION PACKAGER.GRAVEL SCREENER Work Phone: [facility] 12-23-2023 09:58-0400 SaO2% (BldA) [Mass fraction] 93 % Mary Ann Dukes APPLICATION PACKAGER.GRAVEL SCREENER Work Phone: [facility] 12-23-2023 09:58-0400 Systolic blood pressure 122 mm[Hg] Mary Ann Dukes APPLICATION PACKAGER.GRAVEL SCREENER Work Phone: [facility] 12-22-2023 10:22-0400 Body temperature 98.91 [degF] Teresa Athy PA-C Work Phone: [facility] 12-22-2023 10:22-0400 Body weight 41 kg Teresa Athy PA-C Work Phone: [facility] 12-22-2023 10:22-0400 Diastolic blood pressure 78 mm[Hg] Teresa Athy PA-C Work Phone: [facility] 12-22-2023 10:22-0400 Heart rate 96 /min Teresa Athy PA-C Work Phone: [facility] 12-22-2023 10:22-0400 Respiratory rate 22 /min Teresa Athy PA-C Work Phone: [facility] 12-22-2023 10:22-0400 SaO2% (BldA) [Mass fraction] 96 % Teresa Athy PA-C Work Phone: [facility] 12-22-2023 10:22-0400 Systolic blood pressure 131 mm[Hg] Teresa Athy PA-C Work Phone: [facility] 10-15-2023 08:43-0500 Body temperature 98.01 [degF] Shanita Green PA-C Work Phone: [facility] 10-15-2023 08:43-0500 Body weight 42.19 kg Shanita Green PA-C Work Phone: [facility] 10-15-2023 08:43-0500 Diastolic blood pressure 80 mm[Hg] Shanita Green PA-C Work Phone: [facility] 10-15-2023 08:43-0500 Heart rate 110 /min Shanita Green PA-C Work Phone: [facility] 10-15-2023 08:43-0500 Respiratory rate 16 /min Shanita Green PA-C Work Phone: [facility] 10-15-2023 08:43-0500 Systolic blood pressure 122 mm[Hg] Shanita Green PA-C Work Phone: [facility] 06-11-2023 09:23-0400 Body height 144.8 cm Toi Falcon MD Work Phone: [facility] 06-11-2023 09:23-0400 Body temperature 97.3 [degF] Toi Falcon MD Work Phone: [facility] 06-11-2023 09:23-0400 Body weight 39.46 kg Toi Falcon MD Work Phone: [facility] 06-11-2023 09:23-0400 Diastolic blood pressure 72 mm[Hg] Toi Falcon MD Work Phone: [facility] 06-11-2023 09:23-0400 Heart rate 94 /min Toi Falcon MD Work Phone: [facility] 06-11-2023 09:23-0400 SaO2% (BldA) [Mass fraction] 94 % Toi Falcon MD Work Phone: [facility] 06-11-2023 09:23-0400 Systolic blood pressure 112 mm[Hg] Toi Falcon MD Work Phone: [facility] 06-08-2023 11:16-0400 Diastolic blood pressure 80 mm[Hg] Rito Camp MD Work Phone: [facility] 06-08-2023 11:16-0400 Systolic blood pressure 154 mm[Hg] Rito Camp MD Work Phone: [facility] 06-08-2023 10:43-0400 Body temperature 98.91 [degF] Rito Camp MD Work Phone: [facility] 06-08-2023 10:43-0400 Body weight 40.82 kg Rito Camp MD Work Phone: [facility] 06-08-2023 10:43-0400 Heart rate 97 /min Rito Camp MD Work Phone: [facility] 06-08-2023 10:43-0400 Respiratory rate 18 /min Rito Camp MD Work Phone: [facility] 06-08-2023 10:43-0400 SaO2% (BldA) [Mass fraction] 95 % Rito Camp MD Work Phone: [facility] 06-04-2023 10:46-0400 Body weight 39.92 kg Alex Brown APPLICATION PACKAGER.GRAVEL SCREENER Work Phone: [facility] 06-04-2023 10:46-0400 Diastolic blood pressure 80 mm[Hg] Alex Brown APPLICATION PACKAGER.GRAVEL SCREENER Work Phone: [facility] 06-04-2023 10:46-0400 Heart rate 104 /min Alex Brown APPLICATION PACKAGER.GRAVEL SCREENER Work Phone: [facility] 06-04-2023 10:46-0400 Respiratory rate 14 /min Alex Brown APPLICATION PACKAGER.GRAVEL SCREENER Work Phone: [facility] 06-04-2023 10:46-0400 Systolic blood pressure 118 mm[Hg] Alex Brown APPLICATION PACKAGER.GRAVEL SCREENER Work Phone: [facility] 06-02-2023 13:45-0400 Body temperature 98.5 [degF] Dr. Rito Camp Work Phone: [facility] 06-02-2023 13:45-0400 Diastolic blood pressure 82 mm[Hg] Dr. Rito Camp Work Phone: 9(672)656-741716 [place] [address] 06-02-2023 13:45-0400 Heart rate 98 /min Dr. Rito Camp Work Phone: [facility] 06-02-2023 13:45-0400 Respiratory rate 18 /min Dr. Rito Camp Work Phone: [facility] 06-02-2023 13:45-0400 SaO2% (BldA) [Mass fraction] 95 % Dr. Rito Camp Work Phone: [facility] 06-02-2023 13:45-0400 Systolic blood pressure 135 mm[Hg] Dr. Rito Camp Work Phone: 5(643)361-519516 [place] [address] 06-01-2023 11:41-0400 Body height 144.[address] Rito Camp Work Phone: 9(266)890-267716 [place] [address] 06-01-2023 11:41-0400 Body weight 40.[address] Rito Camp Work Phone: 9(306)103-221344 [place] [address] 06-01-2023 02:55-0400 Body mass index (BMI) [Ratio] 19.2 kg/m2 Dr. Rito Camp Work Phone: 9(832)652-964644 [place] [address] 06-01-2023 01:29-0400 Body temperature 99 [degF] Dr. Rito Camp Work Phone: 2(137)085-293644 [place] [address] 06-01-2023 01:29-0400 Diastolic blood pressure 93 mm[Hg] Dr. Rito Camp Work Phone: 7(485)544-770944 [place] [address] 06-01-2023 01:29-0400 Heart rate 91 /min Dr. Rito Camp Work Phone: 1(778)387-725416 [place] [address] 06-01-2023 01:29-0400 Respiratory rate 18 /min Dr. Rito Camp Work Phone: 1(101)114-248344 [place] [address] 06-01-2023 01:29-0400 SaO2% (BldA) [Mass fraction] 92 % Dr. Rito Camp Work Phone: 5(951)643-992475 [address] 06-01-2023 01:29-0400 Systolic blood pressure 150 mm[Hg] Dr. Rito Camp Work Phone: 0(822)721-679316 [place] [address] 05-31-2023 21:50-0400 Body height 147.[address] Rito Camp Work Phone: 7(512)323-164275 [address] 05-31-2023 21:50-0400 Body mass index (BMI) [Ratio] 19.2 kg/m2 Dr. Rito Camp Work Phone: 4(565)575-497116 [place] [address] 05-31-2023 21:50-0400 Body weight 41.[address] Rito Camp Work Phone: 6(100)429-360216 [place] [address] 04-17-2023 08:02-0400 Body mass index (BMI) [Ratio] 19 kg/m2 Dr. Rito Camp Work Phone: 3(199)257-155144 [place] [address] 04-17-2023 08:02-0400 Body temperature 97.5 [degF] Dr. Rito Camp Work Phone: 9(359)521-093844 [place] [address] 04-17-2023 08:02-0400 Body weight 39.[address] Rito Camp Work Phone: 4(140)853-565944 [place] [address] 04-17-2023 08:02-0400 Diastolic blood pressure 80 mm[Hg] Dr. Rito Camp Work Phone: 7(491)661-936944 [place] [address] 04-17-2023 08:02-0400 Heart rate 79 /min Dr. Rito Camp Work Phone: 1(933)468-075844 [place] [address] 04-17-2023 08:02-0400 Respiratory rate 18 /min Dr. Rito Camp Work Phone: 2(370)655-362744 [place] [address] 04-17-2023 08:02-0400 SaO2% (BldA) [Mass fraction] 96 % Dr. Rito Camp Work Phone: 9(489)856-391544 [place] [address] 04-17-2023 08:02-0400 Systolic blood pressure 135 mm[Hg] Dr. Rito Camp Work Phone: 2(893)722-275844 [place] [address] 02-25-2023 09:26-0400 Body mass index (BMI) [Ratio] 19.3 kg/m2 Dr. Rito Camp Work Phone: 5(096)306-174044 [place] [address] 02-25-2023 09:26-0400 Body temperature 98.4 [degF] Dr. Rito Camp Work Phone: 9(908)179-673444 [place] [address] 02-25-2023 09:26-0400 Body weight 40.[address] Rito Camp Work Phone: 8(477)242-531844 [place] [address] 02-25-2023 09:26-0400 Diastolic blood pressure 80 mm[Hg] Dr. Rito Camp Work Phone: 8(532)217-263844 [place] [address] 02-25-2023 09:26-0400 Heart rate 86 /min Dr. Rito Camp Work Phone: [facility] 02-25-2023 09:26-0400 Respiratory rate 16 /min Dr. Rito Camp Work Phone: [facility] 02-25-2023 09:26-0400 SaO2% (BldA) [Mass fraction] 94 % Dr. Rito Camp Work Phone: [facility] 02-25-2023 09:26-0400 Systolic blood pressure 130 mm[Hg] Dr. Rito Camp Work Phone: [facility] 02-20-2023 09:09-0400 Diastolic blood pressure 83 mm[Hg] Shanita Green PA-C Work Phone: [facility] 02-20-2023 09:09-0400 Heart rate 85 /min Shanita Green PA-C Work Phone: [facility] 02-20-2023 09:09-0400 Systolic blood pressure 130 mm[Hg] Shanita Green PA-C Work Phone: [facility] 02-20-2023 08:20-0400 Body temperature 98.1 [degF] Shanita Green PA-C Work Phone: [facility] 02-20-2023 08:20-0400 Respiratory rate 16 /min Shanita Green PA-C Work Phone: [facility] 02-15-2023 09:31-0400 Body temperature 98.8 [degF] Alex Brown APRN.GRAVEL SCREENER Work Phone: [facility] 02-15-2023 09:31-0400 Body weight 40.46 kg Alex Brown APRN.GRAVEL SCREENER Work Phone: [facility] 02-15-2023 09:31-0400 Diastolic blood pressure 82 mm[Hg] Alex Brown APRN.GRAVEL SCREENER Work Phone: [facility] 02-15-2023 09:31-0400 Heart rate 98 /min Alex Brown APRN.GRAVEL SCREENER Work Phone: [facility] 02-15-2023 09:31-0400 Respiratory rate 20 /min Alex Brown APPLICATION PACKAGER.GRAVEL SCREENER Work Phone: [facility] 02-15-2023 09:31-0400 SaO2% (BldA) [Mass fraction] 97 % Alex Brown APPLICATION PACKAGER.GRAVEL SCREENER Work Phone: [facility] 02-15-2023 09:31-0400 Systolic blood pressure 128 mm[Hg] Alex Brown APPLICATION PACKAGER.GRAVEL SCREENER Work Phone: [facility] 02-13-2023 00:12-0400 Diastolic blood pressure 96 mm[Hg] Dr. Rito Camp Work Phone: [facility] 02-13-2023 00:12-0400 Systolic blood pressure 148 mm[Hg] Dr. Rito Camp Work Phone: [facility] 02-12-2023 21:58-0400 Body mass index (BMI) [Ratio] 20.9 kg/m2 Dr. Rito Camp Work Phone: [facility] 02-12-2023 21:58-0400 Body temperature 97.3 [degF] Dr. Rito Camp Work Phone: [facility] 02-12-2023 21:58-0400 Body weight 43.[address] Rito Camp Work Phone: [facility] 02-12-2023 21:58-0400 Heart rate 120 /min Dr. Rito Camp Work Phone: [facility] 02-12-2023 21:58-0400 Respiratory rate 16 /min Dr. Rito Camp Work Phone: [facility] 02-12-2023 21:58-0400 SaO2% (BldA) [Mass fraction] 92 % Dr. Rito Camp Work Phone: [facility] 11-19-2022 10:01-0400 Body weight 40.37 kg Rito Camp MD Work Phone: [facility] 11-19-2022 10:01-0400 Diastolic blood pressure 82 mm[Hg] Rito Camp MD Work Phone: [facility] 11-19-2022 10:01-0400 Heart rate 76 /min Rito Camp MD Work Phone: [facility] 11-19-2022 10:01-0400 Respiratory rate 18 /min Rito Camp MD Work Phone: [facility] 11-19-2022 10:01-0400 Systolic blood pressure 122 mm[Hg] Rito Camp MD Work Phone: [facility] 09-27-2022 09:52-0500 Body height 144.8 cm Rito Camp MD Work Phone: [facility] 09-27-2022 09:52-0500 Body weight 42.19 kg Rito Camp MD Work Phone: [facility] 09-27-2022 09:52-0500 Diastolic blood pressure 80 mm[Hg] Rito Camp MD Work Phone: [facility] 09-27-2022 09:52-0500 Heart rate 82 /min Rito Camp MD Work Phone: [facility] 09-27-2022 09:52-0500 Respiratory rate 18 /min Rito Camp MD Work Phone: [facility] 09-27-2022 09:52-0500 Systolic blood pressure 130 mm[Hg] Rito Camp MD Work Phone: [facility] 07-31-2022 09:32-0500 Body height 144.8 cm Ashleigh Negrete APRN.GRAVEL SCREENER Work Phone: [facility] 07-31-2022 09:32-0500 Body weight 42.64 kg Ashleigh Negrete APRN.GRAVEL SCREENER Work Phone: [facility] 07-31-2022 09:32-0500 Diastolic blood pressure 68 mm[Hg] Ashleigh Negrete APPLICATION PACKAGER.GRAVEL SCREENER Work Phone: [facility] 07-31-2022 09:32-0500 Systolic blood pressure 100 mm[Hg] Ashleigh Negrete APPLICATION PACKAGER.GRAVEL SCREENER Work Phone: [facility] 07-09-2022 10:42-0500 Body temperature 98.91 [degF] Sweetie Podlogar APPLICATION PACKAGER.GRAVEL SCREENER Work Phone: [facility] 07-09-2022 10:42-0500 Diastolic blood pressure 72 mm[Hg] Sweetie Podlogar APPLICATION PACKAGER.GRAVEL SCREENER Work Phone: [facility] 07-09-2022 10:42-0500 Heart rate 91 /min Sweetie Podlogar APPLICATION PACKAGER.GRAVEL SCREENER Work Phone: [facility] 07-09-2022 10:42-0500 Respiratory rate 20 /min Sweetie Podlogar APPLICATION PACKAGER.GRAVEL SCREENER Work Phone: [facility] 07-09-2022 10:42-0500 SaO2% (BldA) [Mass fraction] 97 % Sweetie Podlogar APPLICATION PACKAGER.GRAVEL SCREENER Work Phone: [facility] 07-09-2022 10:42-0500 Systolic blood pressure 128 mm[Hg] Sweetie Podlogar APPLICATION PACKAGER.GRAVEL SCREENER Work Phone: [facility] 07-04-2022 09:42-0400 Body temperature 99.19 [degF] Rito Sheridan APPLICATION PACKAGER.GRAVEL SCREENER Work Phone: [facility] 07-04-2022 09:42-0400 Body weight 42.27 kg Rito Sheridan APPLICATION PACKAGER.GRAVEL SCREENER Work Phone: [facility] 07-04-2022 09:42-0400 Diastolic blood pressure 86 mm[Hg] Rito Sheridan APPLICATION PACKAGER.GRAVEL SCREENER Work Phone: [facility] 07-04-2022 09:42-0400 Heart rate 95 /min Rito Sheridan APPLICATION PACKAGER.GRAVEL SCREENER Work Phone: [facility] 07-04-2022 09:42-0400 Respiratory rate 20 /min Rito Sheridan APRN.GRAVEL SCREENER Work Phone: [facility] 07-04-2022 09:42-0400 SaO2% (BldA) [Mass fraction] 98 % Rito Sheridan APPLICATION PACKAGER.GRAVEL SCREENER Work Phone: [facility] 07-04-2022 09:42-0400 Systolic blood pressure 132 mm[Hg] Rito Sheridan APPLICATION PACKAGER.GRAVEL SCREENER Work Phone: [facility] 05-28-2022 10:18-0400 Body temperature 98.1 [degF] Shanita Green PA-C Work Phone: [facility] 05-28-2022 10:18-0400 Body weight 41.73 kg Shanita Green PA-C Work Phone: [facility] 05-28-2022 10:18-0400 Diastolic blood pressure 68 mm[Hg] Shanita Green PA-C Work Phone: [facility] 05-28-2022 10:18-0400 Heart rate 76 /min Shanita Green PA-C Work Phone: [facility] 05-28-2022 10:18-0400 Respiratory rate 16 /min Shanita Green PA-C Work Phone: [facility] 05-28-2022 10:18-0400 Systolic blood pressure 94 mm[Hg] Shanita Green PA-C Work Phone: [facility] 04-16-2022 06:37-0400 Body height 144.[address] Rito Camp Work Phone: [facility] Work Phone: 04-16-2022 06:37-0400 Body mass index (BMI) [Ratio] 20.3 kg/m2 Dr. Rito Camp Work Phone: [facility] Work Phone: 04-16-2022 06:37-0400 Body temperature 97.8 [degF] Dr. Rito Camp Work Phone: [facility] Work Phone: 04-16-2022 06:37-0400 Body weight 42.[address] Rito Camp Work Phone: [facility] Work Phone: 04-16-2022 06:37-0400 Diastolic blood pressure 75 mm[Hg] Dr. Rito Camp Work Phone: [facility] Work Phone: 04-16-2022 06:37-0400 Heart rate 78 /min Dr. Rito Camp Work Phone: [facility] Work Phone: 04-16-2022 06:37-0400 Respiratory rate 16 /min Dr. Rito Camp Work Phone: [facility] Work Phone: 04-16-2022 06:37-0400 SaO2% (BldA) [Mass fraction] 93 % Dr. Rito Camp Work Phone: [facility] Work Phone: 04-16-2022 06:37-0400 Systolic blood pressure 118 mm[Hg] Dr. Rito Camp Work Phone: [facility] Work Phone: 03-23-2022 07:44-0400 Body temperature 99 [degF] Shanita Green PA-C Work Phone: [facility] 03-23-2022 07:44-0400 Body weight 42.64 kg Shanita Green PA-C Work Phone: [facility] 03-23-2022 07:44-0400 Diastolic blood pressure 68 mm[Hg] Shanita Green PA-C Work Phone: [facility] 03-23-2022 07:44-0400 Heart rate 72 /min Shanita Green PA-C Work Phone: [facility] 03-23-2022 07:44-0400 Respiratory rate 16 /min Shanita Green PA-C Work Phone: [facility] 03-23-2022 07:44-0400 Systolic blood pressure 100 mm[Hg] Shanita Green PA-C Work Phone: [facility] 03-18-2022 15:30-0400 Body temperature 97.1 [degF] Dr. Rito Capm Work Phone: [facility] Work Phone: 03-18-2022 15:30-0400 Diastolic blood pressure 84 mm[Hg] Dr. Rito Camp Work Phone: [facility] Work Phone: 03-18-2022 15:30-0400 Heart rate 92 /min Dr. Rito Camp Work Phone: [facility] Work Phone: 03-18-2022 15:30-0400 Respiratory rate 18 /min Dr. Rito Camp Work Phone: [facility] Work Phone: 03-18-2022 15:30-0400 SaO2% (BldA) [Mass fraction] 96 % Dr. Rito Camp Work Phone: [facility] Work Phone: 03-18-2022 15:30-0400 Systolic blood pressure 140 mm[Hg] Dr. Rito Camp Work Phone: [facility] Work Phone: 03-18-2022 06:00-0400 Body weight 42.[address] Rito Camp Work Phone: [facility] Work Phone: 03-17-2022 22:51-0400 Body height 144.[address] Rito Camp Work Phone: [facility] Work Phone: 03-17-2022 22:51-0400 Body mass index (BMI) [Ratio] 20.1 kg/m2 Dr. Rito Camp Work Phone: [facility] Work Phone: 03-17-2022 21:48-0400 Body temperature 98.8 [degF] Dr. Rito Camp Work Phone: [facility] Work Phone: 03-17-2022 21:48-0400 Diastolic blood pressure 89 mm[Hg] Dr. Rito Camp Work Phone: [facility] Work Phone: 03-17-2022 21:48-0400 Heart rate 95 /min Dr. Rito Camp Work Phone: [facility] Work Phone: 03-17-2022 21:48-0400 Respiratory rate 18 /min Dr. Rito Camp Work Phone: [facility] Work Phone: 03-17-2022 21:48-0400 SaO2% (BldA) [Mass fraction] 95 % Dr. Rito Camp Work Phone: [facility] Work Phone: 03-17-2022 21:48-0400 Systolic blood pressure 160 mm[Hg] Dr. Rito Camp Work Phone: [facility] Work Phone: 03-17-2022 17:25-0400 Body height 144.[address] Rito Camp Work Phone: [facility] Work Phone: 03-17-2022 17:25-0400 Body mass index (BMI) [Ratio] 20.5 kg/m2 Dr. Rito Camp Work Phone: [facility] Work Phone: 03-17-2022 17:25-0400 Body weight 43.[address] Rito Camp Work Phone: [facility] Work Phone: 03-14-2022 10:14-0400 Body temperature 98.29 [degF] Bernard Elliott MD Work Phone: [facility] 03-14-2022 10:14-0400 Body weight 43.55 kg Bernard Elliott MD Work Phone: [facility] 03-14-2022 10:14-0400 Diastolic blood pressure 60 mm[Hg] Bernard Elliott MD Work Phone: [facility] 03-14-2022 10:14-0400 Heart rate 88 /min Bernard Elliott MD Work Phone: [facility] 03-14-2022 10:14-0400 Respiratory rate 16 /min Bernard Elliott MD Work Phone: [facility] 03-14-2022 10:14-0400 SaO2% (BldA) [Mass fraction] 96 % Bernard Elliott MD Work Phone: [facility] 03-14-2022 10:14-0400 Systolic blood pressure 122 mm[Hg] Bernard Elliott MD Work Phone: [facility] 01-10-2022 09:47-0400 Body temperature 98.49 [degF] Shanna Newton APRN.GRAVEL SCREENER Work Phone: [facility] 01-10-2022 09:47-0400 Body weight 43.18 kg Shanna Newton APRN.GRAVEL SCREENER Work Phone: [facility] 01-10-2022 09:47-0400 Diastolic blood pressure 80 mm[Hg] Shanna Newton APRN.GRAVEL SCREENER Work Phone: [facility] 01-10-2022 09:47-0400 Heart rate 84 /min Shanna Newton APRN.GRAVEL SCREENER Work Phone: [facility] 01-10-2022 09:47-0400 Respiratory rate 18 /min Shanna Newton APRN.GRAVEL SCREENER Work Phone: [facility] 01-10-2022 09:47-0400 SaO2% (BldA) [Mass fraction] 97 % Shanna Newton APRN.GRAVEL SCREENER Work Phone: [facility] 01-10-2022 09:47-0400 Systolic blood pressure 132 mm[Hg] Shanna Newton APRN.GRAVEL SCREENER Work Phone: [facility] 12-19-2021 10:28-0400 Body temperature 98.8 [degF] Shanita Green PA-C Work Phone: [facility] 12-19-2021 10:28-0400 Body weight 44.27 kg Shanita Green PA-C Work Phone: [facility] 12-19-2021 10:28-0400 Diastolic blood pressure 60 mm[Hg] Shanita Green PA-C Work Phone: [facility] 12-19-2021 10:28-0400 Heart rate 63 /min Shanitajonelle Green PA-C Work Phone: [facility] 12-19-2021 10:28-0400 Respiratory rate 18 /min Shanita Green PA-C Work Phone: [facility] 12-19-2021 10:28-0400 Systolic blood pressure 104 mm[Hg] Shanita Green PA-C Work Phone: [facility] Encounters Encounter Date Encounter Type Care Provider Facility Start: 07-06-2025 End: 07-06-2025 ambulatory RITO CAMP Facility:[facility] Start: 07-05-2025 ambulatory RITO Wang ty:[facility] Start: 06-08-2025 End: 06-08-[address] Pieter Camacho MD -[facility] Start: 06-08-2025 End: 06-08-[address] Rito Camp MD Work Phone: -[facility] Start: 05-27-2025 End: 05-27-2025 ambulatory RITO CAMP Facility:[facility] Start: 05-24-2025 ambulatory RITO Wang ty:[facility] Start: 05-16-2025 End: 05-16-2025 Subsequent hospital visit by physician Eden [facility] [place] Work Phone: Radiology Comment on above: Injury of right wris t, initial encounter [S69.91XA] Start: 05-16-2025 End: 05-16-2025 Patient encounter procedure Ky Shaver APPLICATION PACKAGER.GRAVEL SCREENER Work Phone: [facility] [place] Comment on above: Injury of right wris t, initial encounter (Primary Dx) Start: 05-16-2025 End: 05-16-2025 ambulatory [place] SHAVER Facility:[facility] Start: 05-14-2025 End: 05-14-2025 Telephone encounter Rito Camp MD Work Phone: [facility] [place] Comment on above: Insurance Authorizat ion Start: 05-14-2025 End: 05-14-2025 Patient encounter procedure Alex Brown APPLICATION PACKAGER.GRAVEL SCREENER Work Phone: [facility] [place] Comment on above: Lumbar radiculopathy (Primary Dx); Lumbar back pain; Radiculopathy of lumbar region Start: 05-14-2025 End: 05-14-2025 ambulatory RITO CAMP Facility:[facility] Start: 05-11-2025 End: 05-11-2025 Refill Rito Camp MD Work Phone: Family [facility] [place] Comment on above: Refill Request Start: 05-10-2025 End: 05-10-[address] Rito Camp MD Work Phone: -Laboratory Specimen Start: 05-10-2025 End: 05-10-2025 Patient encounter procedure Angella AVILES -Laboratory Specimen Work Phone: Start: 05-10-2025 End: 05-10-2025 ambulatory Rito Camp Facility:[facility] Start: 05-07-2025 End: 05-07-2025 Chart abstracting Rito Camp MD Work Phone: [facility] [place] Comment on above: Abstract ([facility] t rehab evaluation) Start: 05-06-2025 Registered Recurring Angella AVILES -Physical Therapy Work Phone: Start: 05-06-2025 ambulatory Rito Camp Facility :[facility] Start: 05-04-2025 End: 05-04-2025 Office outpatient visit 15 minutes Shanita Green PA-C Work Phone: [facility] [place] Comment on above: Lumbar radiculopathy (Primary Dx); Lumbar back pain; Radiculopathy of lumbar region Start: 05-04-2025 End: 05-04-2025 ambulatory RITO CAMP Facility:[facility] Start: 04-20-2025 End: 04-20-2025 Patient encounter procedure Angella AVILES -[facility] Work Phone: Start: 04-20-2025 End: 04-20-[address] Rito Camp MD Work Phone: -[facility] Start: 04-05-2025 End: 04-05-2025 Telephone encounter Shanita Green PA-C Work Phone: [facility] [place] Comment on above: Medication Problem Start: 03-31-2025 End: 03-31-2025 Chart abstracting Rito Camp MD Work Phone: [facility] [place] Comment on above: Abstract (GI Procedu re and GI OV note - Dr. Gill) Start: 03-31-2025 Non-patient / Non-visit Robe Garrett nd DO -[facility] Start: 03-31-2025 End: 03-31-2025 Admission to same day surgery center Robe Gill DO -Endoscopy Work Phone: Start: 03-31-2025 End: 03-31-[address] Rito Camp MD Work Phone: -Endoscopy Start: 03-22-2025 End: 03-22-2025 Refill Rito Camp MD Work Phone: [facility] [place] Comment on above: Refill Request Start: 03-18-2025 End: 03-26-2025 Follow-up encounter Shanita Green PA-C Work Phone: [facility] [place] Start: 03-17-2025 End: 03-17-2025 Telephone encounter Rito Camp MD Work Phone: [facility] [place] Comment on above: Insurance Authorizat ion Start: 03-15-2025 End: 03-15-2025 Office outpatient visit 25 minutes Shanita Green PA-C Work Phone: [facility] [place] Comment on above: Psychophysiological insomnia (Primary Dx); Easy bruising; Lumbar radiculopathy Start: 03-15-2025 End: 03-15-2025 ambulatory SHANITA GREEN Facility:[facility] Start: 03-02-2025 Non-patient / Non-visit Dr. Kota Shore MD -[facility] Work Phone: Start: 02-09-2025 End: 02-09-2025 Patient encounter procedure CLEAT FEEDER Letha Emery -[facility] Work Phone: Start: 02-09-2025 End: 02-09-[address] Rito Camp MD Work Phone: [facility] Work Phone: Start: 01-21-2025 End: 01-21-2025 ambulatory RITO CAMP Facility:[facility] Start: 01-05-2025 End: 01-05-2025 Follow-up encounter Shanita Green PA-C Work Phone: [facility] [place] Start: 01-05-2025 End: 01-05-2025 Subsequent hospital visit by physician Xr [facility] [place] Work Phone: Radiology Comment on above: Injury of right toe, initial encounter [S99.921A] Start: 01-05-2025 End: 01-05-2025 Office outpatient visit 25 minutes Shanita Green PA-C Work Phone: [facility] [place] Comment on above: Injury of right toe, initial encounter (Primary Dx); Psychophysiological insomnia; Ectatic thoracic aorta Start: 01-05-2025 End: 01-05-2025 ambulatory RITO CAMP Facility:[facility] Start: 01-04-2025 End: 01-04-2025 Chart abstracting Rito Camp MD Work Phone: [facility] [place] Comment on above: Outside Imaging (CT) Start: 01-01-2025 End: 01-01-[address] Rito Camp MD Work Phone: [facility] Work Phone: Start: 01-01-2025 End: 01-01-2025 Patient encounter procedure Sierra AVILES -Cat Scan, [facility] Work Phone: Start: 01-01-2025 End: 01-01-2025 ambulatory Rito Camp Facility:[facility] Start: 12-28-2024 End: 12-29-2024 Follow-up encounter Rito Camp MD Work Phone: [facility] Start: 12-28-2024 ambulatory RITO CAMP Facili ty:[facility] Start: 12-28-2024 End: 12-28-2024 Subsequent hospital visit by physician Bone Density [facility] Work Phone: Radiology Comment on above: Osteoporosis, unspec ified osteoporosis type, unspecified pathological fracture presence [M81.0] Start: 12-17-2024 End: 12-17-2024 Patient encounter procedure Angella Cueto CLEAT FEEDERErnieC -[facility] Work Phone: Start: 12-17-2024 End: 12-17-2024 ambulatory Rito Camp Facility:[facility] Start: 12-02-2024 End: 12-04-2024 Telephone encounter Aury Newton MA [facility] Comment on above: Results Start: 12-01-2024 End: 12-18-2024 Telephone encounter [facility]N.CNP [facility] Comment on above: Patient Question Start: 11-30-2024 End: 11-30-2024 Refill R[facility] Camp [facility] Comment on above: Refill Request Start: 11-25-2024 End: 11-25-[address] Rito Camp MD Work Phone: [facility] Work Phone: Start: 11-25-2024 End: 11-25-[address] Rito Camp MD -Speech Therapy Work Phone: Start: 11-25-[address] Leonard Camp MD -Speech Therapy Work Phone: Start: 11-24-2024 End: 11-24-[address] Rito Camp MD Work Phone: [facility] Work Phone: Start: 11-24-2024 End: 11-24-[address] Rito Camp MD -Radiology, [facility] Work Phone: Start: 11-24-2024 End: 11-24-2024 ambulatory Rito Camp Facility:[facility] Start: 11-10-2024 End: 11-10-2024 Chart abstracting Rito Camp MD Work Phone: Family [facility] Comment on above: Outside Anesthesia/P ain Start: 11-09-2024 End: 11-09-2024 Refill Rito Camp MD Work Phone: OB/Gynecology Comment on above: Refill Request Start: 11-05-2024 End: 11-05-2024 ambulatory No Pcp (Hist) [facility] [place] Start: 11-05-2024 End: 11-05-2024 Patient encounter procedure No Pcp (Hist) [facility] [place] Start: 11-04-2024 End: 11-04-2024 Telephone encounter Rito Camp MD Work Phone: [facility] [place] Comment on above: Left Hip Pain Start: 11-02-2024 End: 11-02-2024 Refill Rito Camp MD Work Phone: [facility] [place] Comment on above: Refill Request Start: 10-26-2024 End: 11-12-2024 Telephone encounter Rito Camp MD Work Phone: Administration Comment on above: Orders (Disc Request ) Start: 10-20-2024 End: 10-20-2024 Chart abstracting Rito Camp MD Work Phone: [facility] [place] Comment on above: Outside Speech Thera py Start: 10-13-2024 End: 10-13-2024 ambulatory Mary Ann Oscar PT [facility] Comment on above: Pain in left hip (Pr imary Dx) Start: 10-01-2024 End: 10-01-2024 Patient encounter procedure Rito Camp MD Work Phone: [facility] [place] Comment on above: Medicare annual well [...] Start: 10-01-2024 End: 10-01-2024 ambulatory RITO CAMP Facility:[facility] Start: 09-30-2024 End: 09-30-2024 Refill Rito Camp MD Work Phone: [facility] [place] Comment on above: Refill Request Start: 09-29-2024 End: 09-29-2024 ambulatory Mary Ann Oscar PT [facility] Comment on above: Pain in left hip (Pr imary Dx) Start: 09-24-2024 End: 09-24-2024 ambulatory RITO CAMP Facility:[facility] Start: 09-15-2024 End: 09-15-2024 Telephone encounter Rito Camp MD Work Phone: [facility] [place] Comment on above: fax copy of CT Chest to Pulmonary Dr Suleman Gustafson office Start: 09-15-2024 End: 09-15-2024 Patient encounter procedure CLEAT FEEDER Letha Emery [facility] Work Phone: Start: 09-15-2024 End: 09-15-2024 ambulatory Rito Camp [facility] Start: 09-08-2024 End: 09-08-2024 Telephone encounter Rito Camp MD Work Phone: [facility] [place] Comment on above: Lab Orders Start: 08-13-2024 End: 08-13-2024 ambulatory Christine Parker RN [employer] Comment on above: CDM (Telephonic Outr each) Start: 08-12-2024 End: 08-12-2024 ambulatory Christine Parker RN [employer] Comment on above: CDM (Telephonic Outr each) Start: 08-05-2024 End: 08-07-2024 Telephone encounter Shanita Green PA-C Work Phone: [facility] [place] Comment on above: Results Start: 08-03-2024 End: 08-03-2024 Subsequent hospital visit by physician Eden [facility] [place] Work Phone: Radiology Comment on above: Left hip pain [M25.5 52] Start: 08-03-2024 End: 08-03-2024 Patient encounter procedure Alex Brown APRN.GRAVEL SCREENER Work Phone: [facility] [place] Comment on above: Left hip pain (Prima ry Dx) Start: 08-03-2024 End: 08-03-2024 ambulatory RITO CAMP Facility:[facility] Start: 07-31-2024 End: 07-31-2024 Subsequent hospital visit by physician Eden [facility] [place] Work Phone: Radiology Comment on above: Acute cough [R05.1] Start: 07-31-2024 End: 07-31-2024 ambulatory RITO NAINA Facility:[facility] Start: 07-31-2024 End: 07-31-2024 Patient encounter procedure Shanna Newton APRN.GRAVEL SCREENER Work Phone: [facility] Comment on above: Acute cough (Primary Dx); Bacterial pneumonia Start: 07-27-2024 [facility] Start: 07-27-2024 End: 07-27-2024 ambulatory Letha Emery Facility:[facility] Start: 07-22-2024 End: 07-22-2024 Chart abstracting Rito Camp MD Work Phone: [facility] Comment on above: Outside Pulmonary Start: 07-21-2024 End: 07-21-2024 ambulatory Rito Camp [facility] Start: 07-16-2024 End: 07-16-2024 ambulatory Christine Parker 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[employer] Management Comment on above: CDM (Telephonic Outr each) Start: 07-02-2024 End: 07-02-2024 Telephone encounter Alex Brown APRN.GRAVEL SCREENER Work Phone: [facility] Comment on above: Results Start: 07-01-2024 End: 07-01-2024 Subsequent hospital visit by physician Screen Mammo [facility] Comment on above: Encounter for screen ing mammogram for breast cancer [Z12.31] Start: 06-18-2024 End: 06-18-2024 ambulatory Christine Parker RN [employer] Comment on above: CDM (Telephonic Outr each) Start: 06-17-2024 End: 06-17-2024 ambulatory Christine Parker RN [employer] Comment on above: CDM (Telephonic Outr each) Start: 06-10-2024 End: 06-10-2024 Telephone encounter Rito Camp MD Work Phone: [facility] Comment on above: Medication Problem Start: 06-07-2024 End: 06-07-2024 Patient encounter procedure Shanna Newton APRN.GRAVEL SCREENER Work Phone: [facility] Comment on above: Respiratory infectio n (Primary Dx) Start: 06-05-2024 End: 06-05-2024 Telephone encounter Rito Camp MD Work Phone: [facility] Comment on above: Results Start: 06-05-2024 End: 06-05-2024 Patient encounter procedure Rito Camp MD Work Phone: [facility] Comment on above: Acute cystitis witho ut hematuria (Primary Dx) Start: 06-03-2024 End: 06-03-2024 Patient encounter procedure Mary Annrose Dukes APRN.GRAVEL SCREENER Work Phone: [facility] Comment on above: Dysuria (Primary Dx) Start: 05-07-2024 End: 05-07-2024 ambulatory Christine Parker RN [employer] Comment on above: CDM (Telephonic Outr each) Start: 05-06-2024 End: 05-06-2024 ambulatory Christine Parker RN [employer] Comment on above: CDM (Telephonic Outr each) Start: 04-27-2024 End: 04-27-2024 Refill Rito Camp MD Work Phone: [facility] Comment on above: Refill Request Start: 04-24-2024 End: 04-24-2024 Telephone encounter Alex Brown APRN.GRAVEL SCREENER Work Phone: [facility] Comment on above: Results Start: 04-24-2024 End: 04-24-2024 Subsequent hospital visit by physician Mri Radio [facility] (I-Stat/1.5t) Work Phone: Radiology Comment on above: Acute pain of left s le [M25.512] Start: 04-20-2024 End: 04-20-2024 Telephone encounter Rito Camp MD Work Phone: [facility] Comment on above: Patient Update Start: 04-14-2024 End: 04-29-2024 Telephone encounter Alex Brown APRN.GRAVEL SCREENER Work Phone: [facility] Comment on above: Results Start: 04-14-2024 End: 04-14-2024 Subsequent hospital visit by physician Xr [facility] [place] Work Phone: Radiology Comment on above: Fall (on) (from) ot er stairs and steps, initial encounter [W10.8XXA] Start: 04-14-2024 End: 04-14-2024 Patient encounter procedure Alex Brown APRN.GRAVEL SCREENER Work Phone: [facility] Comment on above: Fall (on) (from) oth er stairs and steps, initial encounter (Primary Dx); Rib pain on right side Start: 04-07-2024 ambulatory Christine Parker RN [facility] Comment on above: CDM (Telephonic Outr each) Start: 04-06-2024 ambulatory Christine Parker RN Ambu l[facility] Management Comment on above: CDM (Telephonic Outr each) Start: 03-26-2024 End: 03-26-2024 Patient encounter procedure Alex Brown APPLICATION PACKAGER.GRAVEL SCREENER Work Phone: [facility] Comment on above: Fall, initial encoun ter (Primary Dx); Acute pain of left shoulder Start: 03-18-2024 End: 03-18-2024 Subsequent hospital visit by physician Eden [facility] [place] Work Phone: Radiology Comment on above: Pain of left clavicl e [M89.8X1] Start: 03-18-2024 End: 03-18-2024 Patient encounter procedure Sweetie Romeo APRN.GRAVEL SCREENER Work Phone: [facility] Comment on above: Fall, initial encoun ter (Primary Dx); Pain of left clavicle; Acute pain of left shoulder Start: 03-16-2024 Refill Rito madera MD Work Phone: [facility] Comment on above: Refill Request Start: [...] Chart abstracting Rito sampson MD Work Phone: [facility] Comment on above: ext document (CT rep ort) Start: 01-01-2024 End: 01-01-[address] Rito Camp Work Phone: [facility] Work Phone: Start: 01-01-2024 End: 01-01-[address] Rito Camp Work Phone: [facility] Work Phone: Start: 12-31-2023 Telephone encounter Rito Camp MD Work Phone: [facility] Comment on above: Results Start: 12-23-2023 ambulatory Mary Ann Dukes APRN.GRAVEL SCREENER Work Phone: [facility] Comment on above: Results Start: 12-23-2023 E-mail encounter fro m caregiver Mary Ann Dukes APRN.GRAVEL SCREENER Work Phone: [facility] Start: 12-23-2023 End: 12-23-2023 Subsequent hospital visit by physician Xr [facility] Work Phone: Radiology Comment on above: URI, acute [J06.9] Start: 12-23-2023 End: 12-23-2023 Patient encounter procedure Mary Ann Dukes APRN.GRAVEL SCREENER Work Phone: [facility] Comment on above: URI, acute (Primary Dx); COPD with exacerbation (HCC) Start: 12-22-2023 End: 12-22-2023 Patient encounter procedure Teresa Handley PA-C Work Phone: [facility] Comment on above: COPD with exacerbati on (HCC) (Primary Dx) Start: 12-17-2023 ambulatory Christine Null l[facility] Care Management Comment on above: CDM (Telephonic Outr each) Start: 12-16-2023 ambulatory Christine Briggsu latory Care Management Comment on above: CDM (Telephonic Outr each) Start: 11-18-2023 ambulatory Christine Null l[facility] Care Management Comment on above: CDM (Telephonic Outr each) Start: 11-08-2023 Telephone encounter Rito Camp MD Work Phone: [facility] Comment on above: Patient Update; FYI- No Action Needed Start: 10-22-2023 ambulatory Christine Null [facility] Care Management Comment on above: CDM (Telephonic Outr each) Start: 10-21-2023 ambulatory Christine Null l[facility] Care Management Comment on above: CDM (Telephonic Outr each) Start: 10-16-2023 Telephone encounter Shanita ALCANTARAC Work Phone: [facility] Comment on above: Results Start: 10-15-2023 Telephone encounter Elana Nevin riddle [facility] Comment on above: Results (Disc/Report ) Start: 10-15-2023 End: 10-15-2023 Subsequent hospital visit by physician Eden [facility] [place] Work Phone: Radiology Comment on above: Neck pain [M54.2] Start: 10-15-2023 End: 10-15-2023 Patient encounter procedure Shanita Green PA-C Work Phone: [facility] Comment on above: Neck pain (Primary D x); Acute pain of right shoulder Start: 10-07-2023 Refill Rito madera MD Work Phone: [facility] Comment on above: Refill Request ([facility]) Start: 10-01-2023 Patient encounter procedure Jurgen Camp MD Work Phone: [facility] Work Phone: Start: 08-22-2023 ambulatory Christine Null latory Care Management Comment on above: CDM (Telephonic Outr each) Start: 08-15-2023 End: 08-15-2023 Subsequent hospital visit by physician [facility] [place] Work Phone: Radiology Comment on above: Lumbar radiculopathy [M54.16] Start: 08-05-2023 End: 08-05-2023 ambulatory Jeancarlos Brewer [facility] Comment on above: 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, sciatica laterality unspecified (Primary Dx) Start: 07-29-2023 End: 07-29-2023 ambulatory Jeancarlos Fraser PT [facility] Physical Therapy Comment on above: 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, sciatica laterality unspecified (Primary Dx) Start: 07-22-2023 ambulatory Kerrie Chapincalv es RN Work Phone: [employer] Comment on above: CDM Telephonic Outre ach Start: 07-15-2023 End: 07-15-2023 ambulatory Jeancarlos Fraser PT [facility] Physical Therapy Comment on above: 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, sciatica laterality unspecified (Primary Dx) Start: 06-27-2023 Refill Rito madera MD Work Phone: [facility] Comment on above: Refill Request Start: 06-21-2023 ambulatory Kerrie Sriniv es RN Work Phone: [employer] Comment on above: CDM Telephonic Outre ach Start: 06-20-2023 Telephone encounter Rito Camp MD Work Phone: [facility] Comment on above: Results Start: 06-11-2023 Telephone encounter Shanita samuel PA-C Work Phone: [facility] Comment on above: Results Start: 06-11-2023 End: 06-11-2023 Patient encounter procedure Toi Falcon MD Work Phone: General Surgery Comment on above: S/p small bowel obst ruction Start: 06-08-2023 End: 06-08-2023 Patient encounter procedure Rito Camp MD Work Phone: [facility] Comment on above: Bronchitis (Primary Dx); Asthma with COPD with exacerbation (HCC) ; Suspected COVID-19 virus infection Start: 06-05-2023 Telephone encounter Rito Camp MD Work Phone: [facility] Comment on above: Results Start: 06-04-2023 End: 06-04-2023 Patient encounter procedure Alex Brown APRN.CNP Work Phone: [facility] Comment on above: S/p small bowel obst ruction (Primary Dx) Start: 06-03-2023 Telephone encounter Rito Camp MD Work Phone: [facility] Comment on above: Patient Update; [facility] s[facility] Of Care Start: 06-02-2023 Non-patient / Non-visit Dr. Jurgen Camp Work Phone: [facility] Inpatient Physicians Work Phone: Start: 06-01-2023 Non-patient / Non-visit Dr. Jurgen Camp Work Phone: [facility] Start: 06-01-2023 Non-patient / Non-visit Dr. Jurgen Camp Work Phone: [facility]patient [facility] Work Phone: Start: 06-01-2023 End: 06-02-2023 Evaluation and management of inpatient Dr. Rito Camp Work Phone: [facility]-Medical Surgical 3 Work Phone: Start: 05-14-2023 Telephone encounter Rito Camp MD Work Phone: [facility] Comment on above: Lab Orders Start: 04-17-2023 End: 04-17-[address] Rito Camp Work Phone: [facility]-Pulmonary Medicine [facility] Work Phone: Start: 04-16-2023 Refill Rito madera MD Work Phone: [facility] Comment on above: Refill Request Start: 04-10-2023 Telephone encounter Kenn Campbell DO Work Phone: Cat Scan Comment on above: disk request Start: 03-07-2023 Telephone encounter Rito Camp MD Work Phone: [facility] Comment on above: Medication Request Start: 03-01-2023 Telephone encounter Rito Camp MD Work Phone: [facility] [place] Comment on above: Results Start: 02-28-2023 ambulatory Kerrie Gonsukumar trujillo RN Work Phone: [employer] Comment on above: CDM Telephonic Outre ach Erroneous encounter- disregard Start: 02-27-2023 Telephone encounter Shanita samuel PA-C Work Phone: [facility] [place] Comment on above: Results Start: 02-26-2023 Chart abstracting Rito sampson MD Work Phone: [facility] [place] Comment on above: Outside Endocrinolog y Start: 02-26-2023 Telephone encounter Alex hawkins APRN.GRAVEL SCREENER Work Phone: [facility] [place] Comment on above: Results Start: 02-26-2023 End: 02-26-2023 Subsequent hospital visit by physician [facility] Work Phone: Cat Scan Comment on above: New onset of headach es after age 50 [R51.9] Start: 02-25-2023 End: 02-25-[address] Rito Camp Work Phone: [facility] Endocrinology Work Phone: Start: 02-21-2023 Telephone encounter Shanita ALCANTARAC Work Phone: [facility] [place] Comment on above: Results Start: 02-20-2023 End: 02-20-2023 Patient encounter procedure Shanita Green PA-C Work Phone: [facility] [place] Comment on above: Psychophysiological insomnia (Primary Dx); New onset of headaches after age 50; Essential hypertension, benign; Ex-smoker Start: 02-15-2023 End: 02-15-2023 Patient encounter procedure Alex Brown APRN.GRAVEL SCREENER Work Phone: [facility] [place] Comment on above: Psychophysiological insomnia (Primary Dx); Runny nose; New onset of headaches after age 51; Ectatic thoracic aorta (HCC) Start: 02-12-2023 End: 02-13-2023 Emergency department patient visit Dr. Rito Camp Work Phone: [facility]-Emergency Department Work Phone: Start: 01-21-2023 End: 01-21-2023 Subsequent hospital visit by physician [facility] Cat Scan Start: 01-03-2023 ambulatory Ruth Denton RN Ambulato ry Care Management Comment on above: CDM (Telephonic outr each) Start: 12-31-2022 Telephone encounter Rito Camp MD Work Phone: [facility] [place] Comment on above: Referral Information Start: 12-18-2022 End: 12-18-2022 Subsequent hospital visit by physician Xr [facility] Work Phone: Radiology Comment on above: Pain [R52] Start: 12-07-2022 ambulatory Ruth Denton RN Ambulato ry Care Management Comment on above: CDM (Telephonic outr each) Start: 12-05-2022 Refill Rito madera MD Work Phone: [facility] Comment on above: Refill Request Start: 12-04-2022 Telephone encounter Rito Camp MD Work Phone: [facility] Comment on above: Results Start: 12-03-2022 End: 12-03-2022 [facility] Work Phone: Radiology Comment on above: Weight loss [R63.4] Start: 11-20-2022 Telephone encounter Shanita samuel PA-C Work Phone: [facility] [place] Comment on above: Results Start: 11-19-2022 End: 11-19-2022 Patient encounter procedure Rito Camp MD Work Phone: [facility] [place] Comment on above: Weight loss (Primary Dx); Ex-smoker; Multiple thyroid nodules; Lung nodules; Osteoporosis, unspecified osteoporosis type, unspecified pathological fracture presence Start: 11-16-2022 Telephone encounter Rito Camp MD Work Phone: [facility] [place] Comment on above: Results Start: 11-13-2022 End: 11-13-2022 Subsequent hospital visit by physician Bone Density [facility] Work Phone: Radiology Comment on above: Osteoporosis, unspec ified osteoporosis type, unspecified pathological fracture presence [M81.0] Start: 11-12-2022 ambulatory Ruth Denton RN Ambulato ry Care Management Comment on above: CDM (Telephonic outr each) Start: 11-05-2022 Telephone encounter Rito Camp MD Work Phone: [facility] [place] Comment on above: Results Start: 09-27-2022 End: 09-27-2022 Patient encounter procedure Rito Camp MD Work Phone: [facility] [place] Comment on above: Medicare annual well [...] 09-17-2022 ambulatory Kami Hunter RN Work Phone: [employer] Comment on above: Community Monitoring Outreach (CDM) Start: 09-12-2022 Telephone encounter Rito Camp MD Work Phone: [facility] [place] Comment on above: Appointment Start: 08-27-2022 Refill Rito madera MD Work Phone: [facility] [place] Comment on above: Refill Request; Refi ll Request Start: 08-17-2022 Refill Rito madera MD Work Phone: [facility] [place] Comment on above: Refill Request Start: 08-14-2022 ambulatory Kami Hunter RN Work Phone: [facility] Start: 08-14-2022 Follow-up encounter Kami Hunter RN Work Phone: [employer] Comment on above: Community Monitoring Outreach (CDM Follow Up) Start: 08-01-2022 Documentation procedure Mammog deidre Coordinator [facility] Start: 08-01-2022 Letter encounter Mammography Coordinator [facility] Department Start: 07-31-2022 End: 07-31-2022 Patient encounter procedure Ashleigh Negrete APRN.GRAVEL SCREENER Work Phone: OB/Gynecology Comment on above: Encounter for gyneco logical examination (general) (routine) without abnormal findings (Primary Dx); Encounter for screening mammogram for breast cancer Start: 07-31-2022 End: 07-31-2022 Patient encounter status Ashleigh Negrete APRN.GRAVEL SCREENER Work Phone: OB/Gynecology Start: 07-31-2022 End: 07-31-2022 Subsequent hospital visit by physician Screen Mammo [facility] M[facility] Comment on above: Encounter for screen ing mammogram for malignant neoplasm of breast [Z12.31] Start: 07-23-2022 ambulatory Kami Hunter RN Work Phone: [facility] Start: 07-23-2022 Follow-up encounter Kami Hunter RN Work Phone: [employer] Comment on above: Community Monitoring Outreach (CDM Follow Up) Start: 07-09-2022 Telephone encounter Rito Camp MD Work Phone: [facility] [place] Comment on above: chest heaviness; Cov id Positive Results Start: 07-09-2022 End: 07-09-2022 Subsequent hospital visit by physician Xr [facility] [place] Work Phone: Radiology Comment on above: Feeling of chest tig htness [R07.89] Start: 07-09-2022 End: 07-09-2022 Patient encounter procedure Sweetie Romeo APRN.GRAVEL SCREENER Work Phone: [facility] [place] Comment on above: Feeling of chest tig htness (Primary Dx); Chest heaviness; Lab test positive for detection of COVID-19 virus; SOB (shortness of breath) Start: 07-05-2022 Telephone encounter Shanna Newton APRN.GRAVEL SCREENER Work Phone: [facility] Comment on above: Results Start: 07-04-2022 End: 07-04-2022 Patient encounter procedure Rito Sheridan APRN.GRAVEL SCREENER Work Phone: [facility] Comment on above: Suspected COVID-19 v irus infection (Primary Dx) Start: 07-02-2022 ambulatory Kami Hunter RN Work Phone: [employer] Comment on above: Refer / Community Re sources (CD Telephonic) Start: 06-12-2022 ambulatory Kami Hunter RN Work Phone: [employer] Comment on above: Community Monitoring Outreach (CD Telephonic) Start: 05-28-2022 End: 05-28-2022 Patient encounter procedure Shanita Green PA-C Work Phone: [facility] Comment on above: Psychophysiological insomnia (Primary Dx); Overactive bladder Start: 05-16-2022 End: 05-16-[address] Rito Camp Work Phone: [facility] Work Phone: Start: 05-16-2022 End: 05-16-[address] Rito Camp Work Phone: [facility] Start: 05-08-2022 ambulatory Kami Hunter RN Work Phone: [facility] Start: 05-08-2022 Follow-up encounter Kami Hunter RN Work Phone: [employer] Comment on above: Community Monitoring Outreach (CD Follow Up) Start: 05-08-2022 Telephone encounter Shanita samuel PA-C Work Phone: [facility] Comment on above: Patient Update Start: 04-30-2022 Refill Rito madera MD Work Phone: [facility] Comment on above: Refill Request Start: 04-24-2022 ambulatory Kami Hunter RN Work Phone: [facility] [place] Start: 04-24-2022 Follow-up encounter Kami Hunter RN Work Phone: [employer] Comment on above: Community Monitoring Outreach (CDM Telephonic Follow Up) Start: 04-23-2022 ambulatory Kami Hunter RN Work Phone: [facility] [place] Start: 04-23-2022 Follow-up encounter Kami Hunter RN Work Phone: [employer] Comment on above: Community Monitoring Outreach (CDM Telephonic Follow Up) Start: 04-16-2022 End: 04-16-[address] [facility] Start: 04-11-2022 ambulatory Toi Power RN NURSE [employer]ENCH LAY OUT TECHNICIAN Comment on above: Medication Question Start: 04-10-2022 ambulatory Kami Hunter RN Work Phone: [facility] [place] Start: 04-10-2022 Follow-up encounter Kami Hunter RN Work Phone: [employer] Comment on above: Community Monitoring Outreach (Follow Up) Start: 04-03-2022 ambulatory Kami Hunter RN Work Phone: [facility] [place] Start: 04-03-2022 Follow-up encounter Kami Hunter RN Work Phone: [employer] Comment on above: Community Monitoring Outreach (Telephonic Follow Up) Start: 03-30-2022 Telephone encounter Shanita samuel PA-C Work Phone: [facility] Comment on above: Results Start: 03-29-2022 End: 03-29-2022 Subsequent hospital visit by physician [facility] Work Phone: Radiology Comment on above: Enlarged uterus [N85 .2] Start: 03-26-2022 Telephone encounter Shanita samuel PA-C Work Phone: [facility] Comment on above: Results Start: 03-23-2022 End: 03-23-2022 Subsequent hospital visit by physician [facility] Work Phone: Radiology Comment on above: Partial intestinal o bstruction, unspecified cause (HCC) [K56.600] Start: 03-23-2022 End: 03-23-2022 Patient encounter procedure Shanita Green PA-C Work Phone: [facility] Comment on above: Partial intestinal o bstruction, unspecified cause (HCC) (Primary Dx); Enlarged uterus; Lower abdominal pain; Bruising Start: 03-21-2022 ambulatory Kami Hunter RN Work Phone: [employer] Start: 03-21-2022 Follow-up encounter Kami Hunter RN Work Phone: [employer] Comment on above: Community Monitoring Outreach (Telephonic Follow Up) Start: 03-20-2022 ambulatory Kami Hunter RN Work Phone: [employer] Start: 03-20-2022 Follow-up encounter Kami Hunter RN Work Phone: [employer] Comment on above: Community Monitoring Outreach (Telephonic Follow Up) Start: 03-18-2022 Non-patient / Non-visit Dr. Jurgen Camp Work Phone: [facility] Inpatient Physicians Start: 03-18-2022 Non-patient / Non-visit Dr. Jurgen Camp Work Phone: [facility] Start: 03-17-2022 End: 03-18-2022 Evaluation and management of inpatient Dr. Rito Camp Work Phone: [facility] Surgical 3 Start: 03-14-2022 End: 03-14-2022 Subsequent hospital visit by physician [facility] Work Phone: Radiology Comment on above: Coccyx pain [M53.3] Start: 03-14-2022 End: 03-14-2022 Patient encounter procedure Bernard Elliott MD [facility] Comment on above: Coccyx pain (Primary Dx) Start: 03-06-2022 ambulatory Kami Hunter RN Work Phone: [facility] [place] Start: 03-06-2022 Follow-up encounter Kami Hunter RN Work Phone: [employer] Comment on above: Community Monitoring Outreach (Telephonic Follow Up) Start: 03-02-2022 ambulatory Kami Hunter RN Work Phone: [facility] [place] Start: 03-02-2022 Follow-up encounter Kami Hunter RN Work Phone: [employer] Comment on above: Community Monitoring Outreach (Telephonic Follow Up) Start: 02-15-2022 ambulatory Kami Hunter RN Work Phone: [facility] [place] Start: 02-15-2022 Follow-up encounter Kami Hunter RN Work Phone: [employer] Comment on above: Community Monitoring Outreach (Telephonic Follow Up) Start: 02-01-2022 ambulatory Kami Hunter RN Work Phone: [facility] [place] Start: 02-01-2022 Follow-up encounter Kami Hunter RN Work Phone: [employer] Comment on above: Community Monitoring Outreach (Telephonic Follow Up) Start: 01-15-2022 ambulatory Kami Hunter RN Work Phone: [facility] [place] Start: 01-15-2022 Follow-up encounter Kami Hunter RN Work Phone: [employer] Comment on above: Community Monitoring Outreach (Telephonic Follow Up) Start: 01-10-2022 Telephone encounter Rito Camp MD Work Phone: [facility] Comment on above: Patient Update Start: 01-10-2022 End: 01-10-2022 Patient encounter procedure Shnana Newton APRN.GRAVEL SCREENER Work Phone: [facility] Comment on above: Cough (Primary Dx) Start: 01-02-2022 ambulatory Kami Hunter RN Work Phone: [facility] [place] Start: 01-02-2022 Follow-up encounter Kami Hunter RN Work Phone: [employer] Comment on above: Community Monitoring Outreach (Telephonic Follow Up) Start: 12-25-2021 Telephone encounter Shanita CORREA-C Work Phone: [facility] [place] Comment on above: Results Start: 12-22-2021 Telephone encounter Rito Camp MD Work Phone: [facility] Comment on above: Returning Patient's Call Start: 12-20-2021 Telephone encounter Shanita samuel PA-C Work Phone: [facility] Comment on above: Results Start: 12-19-2021 End: 12-19-2021 Patient encounter procedure Shanita CORREA-C Work Phone: [facility] [place] Comment on above: Brittle nails (Prima ry Dx) Start: 12-18-2021 [facility] Start: 12-18-2021 Follow-up encounter Kami Hunter RN [employer] Comment on above: Community Monitoring Outreach (Telephonic Follow Up) Start: 12-11-2021 Non-patient / Non-visit Dr. Jurgen Camp Work Phone: [facility] Start: 12-11-2021 End: 12-11-[address] Rito Camp Work Phone: [facility]-Pulmonary Services/Neurology Start: 12-04-2021 ambulatory Kami [facility] Start: 12-04-2021 Follow-up encounter Kami Hunter RN [employer] Comment on above: Community Monitoring Outreach (Telephonic Follow Up) Start: 01-27-2021 Patient encounter procedure Ka gracie Hunter RN [facility] Work Phone: Start: 12-27-2020 End: 12-27-2020 Subsequent hospital visit by physician Xr [facility] [employer] Work Phone: Radiology Comment on above: Suspected COVID-19 v irus infection [Z20.822] Start: 12-17-2020 End: 12-17-2020 Subsequent hospital visit by physician Xr [facility] [employer] Work Phone: Radiology Comment on above: Hip pain, acute, lef t [M25.552] Start: 07-23-2020 End: 07-23-2020 Subsequent hospital visit by physician Xr [facility] [employer] Work Phone: Radiology Comment on above: Pneumonia due to COV ID-19 virus [U07.1, J12.89] Procedures Date Procedure Procedure Detail Performing Clinician Start: 05-16-2025 Radex wrist complete minimum 3 views Ky Chuyita APPLICATION PACKAGER.GRAVEL SCREENER Work Phone: Start: 03-31-[address] Jake Camp MD Work Phone: Start: 01-05-2025 Radex foot complete minimum 3 [...] S mary jo or Plasma Mary Ann Oscar PT Start: 07-31-2024 Radiologic exam ches t 2 views Shanna Newton APPLICATION PACKAGER.GRAVEL SCREENER Work Phone: Start: 06-05-2024 Urnls dip stick/tabl et rgnt auto w/o microscopy Rito Camp MD Work Phone: Start: 06-03-2024 Urnls dip stick/tabl et rgnt auto w/o microscopy Rito Sheridan APPLICATION PACKAGER.GRAVEL SCREENER Work Phone: Start: 04-24-2024 Mri any jt upper ext remity w/o contrast matrl Alex Brown APPLICATION PACKAGER.GRAVEL SCREENER Work Phone: Start: 04-14-2024 Radiologic exam ches t 2 views Alex Brown APPLICATION PACKAGER.GRAVEL SCREENER Work Phone: Start: 03-18-2024 Radex clavicle complete Sweetie Podlogar APPLICATION PACKAGER.GRAVEL SCREENER Work Phone: Start: 01-01-[address] Jake Camp Work Phone: Start: 12-23-2023 Radiologic exam ches t 2 views Mary Ann Dukes APPLICATION PACKAGER.GRAVEL SCREENER Work Phone: Start: 12-23-2023 COVID & INFLUENZA A/ B & RSV NAAT, ROUTINE Mary Ann Dukes APPLICATION PACKAGER.GRAVEL SCREENER Work Phone: Start: 10-15-2023 Radex spine cervical 4 or 5 views Shanita Green PA-C Work Phone: Start: 09-23-2023 Lipid 1996 panel - S mary jo or Plasma Rito Camp MD Work Phone: Start: 08-15-2023 Radex hips bilateral with pelvis minimum 5 views Alex Brown APPLICATION PACKAGER.GRAVEL SCREENER Work Phone: Start: 06-01-[address] Rito Camp Work Phone: Start: 06-01-2023 Plain X-ray abdomen Dr. Rito Camp Work Phone: Start: 06-01-2023 Plain X-ray abdomen Dr. Rito Camp Work Phone: Start: 05-31-2023 CT of abdomen and pe lvis without contrast Dr. Rito Camp Work Phone: Start: 02-26-2023 Ct angiography head w/contrast/noncontrast Alex Brown APPLICATION PACKAGER.GRAVEL SCREENER Work Phone: Start: 12-18-2022 Radex wrist complete minimum 3 views Shanna Newton APPLICATION PACKAGER.GRAVEL SCREENER Work Phone: Start: 12-03-2022 Us abdominal real [...] Start: 07-31-2022 End: 07-31-2022 Mammography Ashleigh Negrete APPLICATION PACKAGER.GRAVEL SCREENER Work Phone: Start: 07-09-2022 Ecg routine ecg w/le ast 12 lds i&r only [facility] Provider Start: 07-09-2022 Radiologic exam ches t 2 views Sweetie Romeo APPLICATION PACKAGER.GRAVEL SCREENER Work Phone: Start: 05-16-[address] Jake Camp Work Phone: Start: 03-29-2022 Us transvaginal Shanita Green PA-C Work Phone: Start: 03-23-2022 Radiologic exam abdo men 1 view Shanita Green PA-C Work Phone: Start: 03-18-[address] Rito Camp Work Phone: Start: 03-18-2022 Plain X-ray abdomen Dr. Rito Camp Work Phone: Start: 03-17-2022 Plain X-ray abdomen Dr. Rito Camp Work Phone: Start: 03-17-2022 Computed tomography of abdomen and pelvis with intravenous contrast Dr. Rito Camp Work Phone: Start: 03-14-2022 Radex sacrum & coccy x minimum 2 views Bernard Elliott MD Work Phone: Start: 07-25-2021 Mammography Kami riojas RN Start: 12-27-2020 Radiologic exam ches t 2 views Will Kidd APPLICATION PACKAGER.GRAVEL SCREENER Work Phone: Start: 12-17-2020 Radex hip unilateral with pelvis 2-3 views Cathleen Mckee APPLICATION PACKAGER.GRAVEL SCREENER Work Phone: Start: 07-23-2020 Radiologic exam ches t 2 views Darvin Gold MD Start: 06-27-2016 Colonoscopy Kami riojas RN Plan of Treatment Date Care Activity Detail Author Start: 09-24-2029 Lipid panel Lipid Screening [facility] Start: 12-18-2028 Urine microalbumin profile [facility] Start: 09-23-2028 Lipid panel Lipid Screening [facility] Start: 09-24-2027 Diabetes Screening Diabetes Screenin g [facility] Start: 09-15-2027 Lipid 1996 panel - S mary jo or Plasma Lipid Screening [facility] Start: 09-15-2027 Lipid panel Lipid Screening [facility] Start: 09-15-2027 LIPID SCREEN LIPID SCREEN [facility] Start: 12-28-2026 Screening for osteoporosis Bone Dens ity Screening [facility] Start: 09-23-2026 Diabetes Screening Diabetes Screenin g [facility] Start: 09-21-2026 LIPID SCREEN LIPID SCREEN [facility] Start: 06-27-2026 Colonoscopy COLONOSCOPY [facility] Start: 06-27-2026 COLORECTAL CANCER SCREENING COLORECTAL CANCER SCREENING [facility] Start: 06-27-2026 Screening for malign ant neoplasm of colon [facility] Start: 05-14-2026 Annual PCP Team Service Coordinator [facility] dontae Disease Visit Annual PCP Team Chronic Disease Visit [facility] Start: 05-04-2026 Annual PCP Team Service Coordinator [facility] dontae Disease Visit Annual PCP Team Chronic Disease Visit [facility] Start: 03-15-2026 Annual PCP Team Service Coordinator Elderly Facility dontae Disease Visit Annual PCP Team Chronic Disease Visit [facility] Start: 02-20-2026 DIABETES SCREEN DIABETES SCREEN [facility] Start: 02-20-2026 Diabetes Screening Diabetes Screenin g [facility] Start: 01-05-2026 Annual PCP Team Service Coordinator Elderly Facility dontae Disease Visit Annual PCP Team Chronic Disease Visit [facility] Start: 10-01-2025 Annual PCP Team Service Coordinator Elderly Facility dontae Disease Visit Annual PCP Team Chronic Disease Visit [facility] Start: 10-01-2025 BP Controlled (<130/80) BP Controlle d (<130/80) [facility] Start: 10-01-2025 Depression Screening Depression Scre ening [facility] Start: 09-20-2025 End: 09-20-2025 Patient encounter procedure 09/20/2025 10:00 AM EST Office Visit [facility] [address] [place] [address] Rito Camp MD [address] [place] [phone] Medicare Wellness [facility] [place] Comment on above: Medicare Wellness Start: 09-15-2025 DIABETES SCREEN DIABETES SCREEN [facility] Start: 09-02-2025 End: 12-02-2025 25-hydroxyvitamin D3 [Mass/volume] in Serum or Plasma VITAMIN D 25 HYDROXY Lab Routine Osteoporosis, unspecified osteoporosis type, unspecified pathological fracture presence Expected: 09/02/2025, Expires: 12/02/2025 [facility] Comment on above: Expected: 09/02/2025 , Expires: 12/02/2025 Start: 09-02-2025 End: 12-02-2025 CBC W Auto Differential panel - Blood COMPLETE BLOOD COUNT AND DIFFERENTIAL Lab Routine GERD without esophagitis Heavy alcohol use Medication management Expected: 09/02/2025, Expires: 12/02/2025 [facility] Comment on above: Expected: 09/02/2025 , Expires: 12/02/2025 Start: 09-02-2025 End: 12-02-2025 Cobalamin (Vitamin B12) [Mass/volume] in Serum or Plasma VITAMIN B12 Lab Routine GERD without esophagitis Medication management Expected: 09/02/2025, Expires: 12/02/2025 [facility] Comment on above: Expected: 09/02/2025 , Expires: 12/02/2025 Start: 09-02-2025 End: 12-02-2025 Comprehensive metabolic 2000 panel - Serum or Plasma COMPREHENSIVE METABOLIC PANEL Lab Routine Essential hypertension, benign Elevated blood sugar Expected: 09/02/2025, Expires: 12/02/2025 [facility] Comment on above: Expected: 09/02/2025 , Expires: 12/02/2025 Start: 09-02-2025 End: 12-02-2025 Folate [Mass/volume] in Serum or Plasma FOLATE, SERUM Lab Routine Heavy alcohol use Medication management Expected: 09/02/2025, Expires: 12/02/2025 [facility] Comment on above: Expected: 09/02/2025 , Expires: 12/02/2025 Start: 09-02-2025 End: 12-02-2025 Hemoglobin A1c in Blood HEMOGLOBIN A1C Lab Routine Elevated blood sugar Expected: 09/02/2025, Expires: 12/02/2025 [facility] Comment on above: Expected: 09/02/2025 , Expires: 12/02/2025 Start: 09-02-2025 End: 12-02-2025 Iron and Iron binding capacity panel - Serum or Plasma IRON AND TIBC Lab Routine Heavy alcohol use Medication management Expected: 09/02/2025, Expires: 12/02/2025 [facility] Comment on above: Expected: 09/02/2025 , Expires: 12/02/2025 Start: 09-02-2025 End: 12-02-2025 LIPID PANEL, NONFASTING LIPID PANEL, NONFASTING Lab Routine Essential hypertension, benign Expected: 09/02/2025, Expires: 12/02/2025 [facility] Comment on above: Expected: 09/02/2025 , Expires: 12/02/2025 Start: 09-02-2025 End: 12-02-2025 Magnesium [Mass/volume] in Serum or Plasma MAGNESIUM Lab Routine GERD without esophagitis Medication management Expected: 09/02/2025, Expires: 12/02/2025 [facility] Comment on above: Expected: 09/02/2025 , Expires: 12/02/2025 Start: 09-02-2025 End: 12-02-2025 Thyrotropin [Units/volume] in Serum or Plasma THYROID STIMULATING HORMONE Lab Routine Chronic anxiety Medication management Expected: 09/02/2025, Expires: 12/02/2025 [facility] Comment on above: Expected: 09/02/2025 , Expires: 12/02/2025 Start: 09-02-2025 End: 12-02-2025 Urinalysis complete panel - Urine URINALYSIS, WITH MICROSCOPIC Lab Routine Essential hypertension, benign Expected: 09/02/2025, Expires: 12/02/2025 [facility] Comment on above: Expected: 09/02/2025 , Expires: 12/02/2025 Start: 08-03-2025 Annual PCP Team Service Coordinator Elderly Facility dontae Disease Visit Annual PCP Team Chronic Disease Visit [facility] Start: 07-01-2025 Screening for malign ant neoplasm of breast Mammogram Screening [facility] Start: 06-08-2025 X-ray of lumbosacral spine L/S Spine Min 4 Views [facility] Start: 06-08-2025 XR Spine Lumbar and Sacrum GE 4 Views [facility] Start: 06-05-2025 Annual PCP Team Service Coordinator Elderly Facility dontae Disease Visit Annual PCP Team Chronic Disease Visit [facility] Start: 05-24-2025 End: 05-24-2025 Patient encounter procedure 05/24/2025 9:00 AM EDT Appointment Radiology [address] [place] [address] MRI LUMBAR SPINE WO IVCON Radiology Comment on above: MRI LUMBAR SPINE WO IVCON Start: 05-03-2025 Influenza vaccination Influenza Vacc ine (#1) [facility] Start: 04-14-2025 Annual PCP Team Service Coordinator Elderly Facility dontae Disease Visit Annual PCP Team Chronic Disease Visit [facility] Start: 03-31-2025 Colonoscopy w/biopsy single/multiple COLONOSCOPY AND BIOPSY [facility] Start: 03-31-2025 Egd insert guide wir e dilator passage esophagus EGD GUIDE WIRE INSERTION [facility] Start: 03-31-2025 Egd transoral biopsy single/multiple EGD BIOPSY SINGLE/MULTIPLE [facility] Start: 03-31-2025 Patient discharge [facility] Start: 03-26-2025 Annual PCP Team Service Coordinator Elderly Facility dontae Disease Visit Annual PCP Team Chronic Disease Visit [facility] Start: 03-24-2025 End: 03-24-2025 Patient encounter procedure 03/24/2025 9:40 AM EDT Office Visit Family [facility] [address] [place] [address] Shanita Green PA-C [address] [facility] [address] go over lab work Family [facility] Comment on above: go over lab work Start: 03-18-2025 Annual PCP Team Service Coordinator Elderly Facility dontae Disease Visit Annual PCP Team Chronic Disease Visit [facility] Start: 03-15-2025 End: 06-14-2025 HYPERCOAG DIAG PNL [facility] Work Phone: Comment on above: Expected: 03/15/2025 , Expires: 06/14/2025 Start: 02-03-2025 End: 02-03-2025 Patient encounter procedure 02/03/2025 9:40 AM EDT Office Visit Family [facility] [address] [place] [address] Shanita Green PA-C [address] [facility] [address] routine ov Family [facility] Comment on above: routine ov Start: 01-21-2025 End: 01-21-2025 Patient encounter procedure 01/21/2025 10:30 AM EDT Office Visit Cardiology [address] [place] [address] Ectatic thoracic aorta [I77.810] Cardiology Comment on above: Ectatic thoracic aor ta [I77.810] Start: 12-28-2024 End: 12-28-2024 Patient encounter procedure 12/28/2024 8:55 AM EDT Appointment Radiology [address] [place] [id number] Osteoporosis, unspecified osteoporosis type, unspecified pathological fracture presence [M81.0] Radiology Comment on above: Osteoporosis, unspec ified osteoporosis type, unspecified pathological fracture presence [M81.0] Start: 12-08-2024 End: 12-08-2024 Patient encounter procedure [facility] Comment on above: Insomnia/Hip pain. 2 month follow up Start: 11-19-2024 End: 11-19-2024 Patient encounter procedure 11/19/2024 11:15 AM EDT Appointment Radiology [address] [place] [id number] M81.0 (ICD-10-CM) - Osteoporosis, unspecified osteoporosis type, unspecified pathological fracture presence Radiology Comment on above: M81.0 (ICD-10-CM) - Osteoporosis, unspecified osteoporosis type, unspecified pathological fracture presence Start: 11-13-2024 Screening for osteoporosis Bone Dens ity Screening [facility] Start: 10-29-2024 End: 10-29-2024 Patient encounter procedure 10/29/2024 11:15 AM EST Appointment Radiology [address] [place] [id number] M81.0 (ICD-10-CM) - Osteoporosis, unspecified osteoporosis type, unspecified pathological fracture presence Radiology Comment on above: M81.0 (ICD-10-CM) - Osteoporosis, unspecified osteoporosis type, unspecified pathological fracture presence Start: 10-27-2024 End: 10-27-2024 ambulatory 10/27/2024 10:30 AM EST OT/PT/Speech Visit [facility] [address] [place] [address] O'HumbertoJurgenMary Ann, PT Pain in left hip [M25.552] [facility] Comment on above: Pain in left hip [M2 5.552] Start: 10-21-2024 End: 10-21-2024 ambulatory 10/21/2024 9:45 AM EST OT/PT/Speech Visit [facility] [address] [place] [address] O'HumbertoJurgenMary Ann, PT Pain in left hip [M25.552] [facility] Comment on above: Pain in left hip [M2 5.552] Start: 10-15-2024 Annual PCP Team Service Coordinator Elderly Facility dontae Disease Visit Annual PCP Team Chronic Disease Visit [facility] Start: 10-13-2024 End: 10-13-2024 ambulatory 10/13/2024 10:30 AM EST OT/PT/Speech Visit [facility] [address] [place] [address] O'HumbertoMary Ann ernandez, PT Pain in left hip [M25.552] [facility] Comment on above: Pain in left hip [M2 5.552] Start: 10-09-2024 End: 10-09-2024 ambulatory 10/09/2024 10:00 AM EST OT/PT/Speech Visit [facility] [address] [place] [address] O'HumbertoMary Ann ernandez, PT Pain in left hip [M25.552] [facility] Comment on above: Pain in left hip [M2 5.552] Start: 10-01-2024 Annual PCP Team Jeramie hall Disease Visit Annual PCP Team Chronic Disease Visit [facility] Start: 10-01-2024 RSV Vaccine (1 - 1-d ose 60+ series) RSV Vaccine (1 - 1-dose 60+ series) [facility] Comment on above: Postponed from 03/10 (Insurance Coverage) Start: 10-01-2024 End: 10-01-2024 Patient encounter procedure 10/01/2024 10:00 AM EST Office Visit [facility] [address] [place] [address] Rito Camp MD [address] [place] [address] Medicare wellness [facility] Comment on above: Medicare wellness Start: 09-24-2024 End: 09-24-2024 ambulatory 09/24/2024 10:15 AM EST Results Only [facility] [address] [place] [address] fasting lab work [facility] Comment on above: fasting lab work Start: 09-23-2024 End: 09-23-2024 ambulatory 09/23/2024 10:15 AM EST Results Only [facility] [address] [place] [address] [facility] Start: 09-21-2024 DIABETES SCREEN DIABETES SCREEN [facility] Start: 09-17-2024 End: 09-17-2024 ambulatory 09/17/2024 10:15 AM EST OT/PT/Speech Visit [facility] [address] [place] [address] Mary Ann Oscar, PT Left hip pain [M25.552] [facility] Comment on above: Left hip pain [M25.5 52] Start: 09-08-2024 End: 12-08-2024 25-hydroxyvitamin D3 [Mass/volume] in Serum or Plasma VITAMIN D 25 HYDROXY Lab Routine Osteoporosis, unspecified osteoporosis type, unspecified pathological fracture presence Expected: 09/08/2024, Expires: 12/08/2024 [facility] Comment on above: Expected: 09/08/2024 , Expires: 12/08/2024 Start: 09-08-2024 End: 12-08-2024 CBC W Auto Differential panel - Blood COMPLETE BLOOD COUNT AND DIFFERENTIAL Lab Routine Essential hypertension, benign Expected: 09/08/2024, Expires: 12/08/2024 [facility] Comment on above: Expected: 09/08/2024 , Expires: 12/08/2024 Start: 09-08-2024 End: 12-08-2024 Cobalamin (Vitamin B12) [Mass/volume] in Serum or Plasma VITAMIN B12 Lab Routine Heavy alcohol use Medication management Expected: 09/08/2024, Expires: 12/08/2024 [facility] Work Phone: Comment on above: Expected: 09/08/2024 , Expires: 12/08/2024 Start: 09-08-2024 End: 12-08-2024 Comprehensive metabolic 2000 panel - Serum or Plasma COMPREHENSIVE METABOLIC PANEL Lab Routine Elevated blood sugar Expected: 09/08/2024, Expires: 12/08/2024 [facility] Comment on above: Expected: 09/08/2024 , Expires: 12/08/2024 Start: 09-08-2024 End: 12-08-2024 Hemoglobin A1c in Blood HEMOGLOBIN A1C Lab Routine Elevated blood sugar Expected: 09/08/2024, Expires: 12/08/2024 [facility] Comment on above: Expected: 09/08/2024 , Expires: 12/08/2024 Start: 09-08-2024 End: 12-08-2024 Iron and Iron binding capacity panel - Serum or Plasma IRON AND TIBC Lab Routine Heavy alcohol use Medication management Expected: 09/08/2024, Expires: 12/08/2024 [facility] Comment on above: Expected: 09/08/2024 , Expires: 12/08/2024 Start: 09-08-2024 End: 12-08-2024 LIPID PANEL, NONFASTING LIPID PANEL, NONFASTING Lab Routine Essential hypertension, benign Expected: 09/08/2024, Expires: 12/08/2024 [facility] Comment on above: Expected: 09/08/2024 , Expires: 12/08/2024 Start: 09-08-2024 End: 12-08-2024 Magnesium [Mass/volume] in Serum or Plasma MAGNESIUM Lab Routine Medication management Expected: 09/08/2024, Expires: 12/08/2024 [facility] Comment on above: Expected: 09/08/2024 , Expires: 12/08/2024 Start: 09-08-2024 End: 12-08-2024 Thyrotropin [Units/volume] in Serum or Plasma THYROID STIMULATING HORMONE Lab Routine Multiple thyroid nodules Expected: 09/08/2024, Expires: 12/08/2024 [facility] Comment on above: Expected: 09/08/2024 , Expires: 12/08/2024 Start: 09-08-2024 End: 12-08-2024 Urinalysis complete panel - Urine URINALYSIS, WITH MICROSCOPIC Lab Routine Elevated blood sugar Expected: 09/08/2024, Expires: 12/08/2024 [facility] Comment on above: Expected: 09/08/2024 , Expires: 12/08/2024 Start: 09-02-2024 Advance Directive Discussion Advance Directive Discussion [facility] Start: 08-31-2024 End: 08-31-2024 ambulatory 08/31/2024 9:00 AM EST OT/PT[facility] [address] [place] [address] Jeancarlos Fraser, PT My left side has been hurting for over 2 weeks [facility] Comment on above: My left side has bee n hurting for over 2 weeks Start: 08-15-2024 Annual PCP Team Service Coordinator Elderly Facility dontae Disease Visit Annual PCP Team Chronic Disease Visit [facility] Start: 08-03-2024 End: 08-03-2024 Patient encounter procedure 08/03/2024 9:20 AM EST Office Visit [facility] [place] [address] [place] [address] Alex Brown APRN.GRAVEL SCREENER [address] [place] [address] pain in left side constant x2 weeks [facility] Comment on above: pain in left side co nstant x2 weeks Start: 06-23-2024 End: 06-23-2024 Patient encounter procedure 06/23/2024 9:10 AM EDT Appointment Mammogram [address] [place] [address] screening mammogram Mammogram Comment on above: screening mammogram Start: 06-18-2024 End: 06-18-2024 Patient encounter procedure 06/18/2024 10:10 AM EDT Appointment Mammogram [address] [place] [address] screening mammogram Mammogram Comment on above: screening mammogram Start: 06-16-2024 End: 06-16-2024 ambulatory 06/16/2024 10:00 AM EDT OT/PT/Speech Visit [facility] [address] [place] [address] Jeancarlos Fraser, PT Tendinopathy of rotator cuff, unspecified laterality [M67.919] [facility] Comment on above: Tendinopathy of rota tor cuff, unspecified laterality [M67.919] Start: 06-11-2024 BP Controlled (<130/80) BP Controlle d (<130/80) [facility] Start: 06-11-2024 Mammography Mammogram Screening [facility] Start: 06-11-2024 Screening for malign ant neoplasm of breast Mammogram Screening [facility] Start: 06-08-2024 Annual PCP Team Service Coordinator Elderly Facility dontae Disease Visit Annual PCP Team Chronic Disease Visit [facility] Start: 06-04-2024 Annual PCP Team Service Coordinator Elderly Facility dontae Disease Visit Annual PCP Team Chronic Disease Visit [facility] Start: 05-27-2024 End: 05-27-2024 ambulatory 05/27/2024 10:45 AM EDT OT/PT/Speech Visit [facility] [address] [place] [address] Josué Elder, PT [address] [place] [address] SHOULDER PAIN [facility] Comment on above: SHOULDER PAIN Start: 05-19-2024 PNEUMOVAX AGE 65 AND OVER WITH 5YR LOOKBACK (#1) PNEUMOVAX AGE 65 AND OVER WITH 5YR LOOKBACK (#1) [facility] Start: 05-14-2024 Annual PCP Team Service Coordinator Elderly Facility dontae Disease Visit Annual PCP Team Chronic Disease Visit [facility] Start: 05-03-2024 Influenza vaccination Influenza Vacc ine (#1) [facility] Start: 04-24-2024 End: 04-24-2024 Patient encounter procedure 04/24/2024 9:20 AM EDT Appointment Radiology [address] [place] [address] Fall, initial encounter [W19.XXXA] Radiology Comment on above: Fall, initial encoun ter [W19.XXXA] Start: 02-21-2024 ANNUAL PCP TEAM FUEL EFFICIENT [employer] DES[employer]ER DONTAE DISEASE VISIT ANNUAL PCP TEAM CHRONIC DISEASE VISIT [facility] Start: 02-16-2024 ANNUAL PCP TEAM FUEL EFFICIENT [employer] DESIGNER DONTAE DISEASE VISIT ANNUAL PCP TEAM CHRONIC DISEASE VISIT [facility] Start: 12-31-2023 End: 12-31-2023 Patient encounter procedure 12/31/2023 10:30 AM EDT Office Visit Cardiology [address] [place] [address] Ectatic thoracic aorta (HCC) [I77.810] Cardiology Comment on above: Ectatic thoracic aor ta (HCC) [I77.810] Start: 12-19-2023 BP CONTROLLED (<130/80) BP CONTROLLE D (<130/80) [facility] Start: 11-20-2023 ANNUAL PCP TEAM FUEL EFFICIENT [employer] DES[employer]ER DONTAE DISEASE VISIT ANNUAL PCP TEAM CHRONIC DISEASE VISIT [facility] Start: 11-20-2023 BP CONTROLLED (<130/80) BP CONTROLLE D (<130/80) [facility] Start: 09-27-2023 ANNUAL PCP TEAM FUEL EFF[employer]IENT [employer] DES[employer]ER DONTAE DISEASE VISIT ANNUAL PCP TEAM CHRONIC DISEASE VISIT [facility] Start: 09-20-2023 End: 11-20-2023 CBC W Auto Differential panel - Blood CBC + DIFF Lab Routine Medication management Expected: 09/20/2023, Expires: 11/20/2023 [facility] Work Phone: Comment on above: Expected: 09/20/2023 , Expires: 11/20/2023 Start: 09-20-2023 End: 11-20-2023 Cobalamin (Vitamin B12) [Mass/volume] in Serum or Plasma VITAMIN B12 BLOOD Lab Routine Medication management GERD without esophagitis Expected: 09/20/2023, Expires: 11/20/2023 [facility] Work Phone: Comment on above: Expected: 09/20/2023 , Expires: 11/20/2023 Start: 09-20-2023 End: 11-20-2023 Comprehensive metabolic 2000 panel - Serum or Plasma COMP METABOLIC PANEL Lab Routine Essential hypertension, benign Expected: 09/20/2023, Expires: 11/20/2023 [facility] Work Phone: Comment on above: Expected: 09/20/2023 , Expires: 11/20/2023 Start: 09-20-2023 End: 11-20-2023 Hemoglobin A1c in Blood HGB A1C Lab Routine Elevated blood sugar Expected: 09/20/2023, Expires: 11/20/2023 [facility] Work Phone: Comment on above: Expected: 09/20/2023 , Expires: 11/20/2023 Start: 09-20-2023 End: 11-20-2023 LIPID PANEL, NONFASTING LIPID PANEL, NONFASTING Lab Routine Essential hypertension, benign Expected: 09/20/2023, Expires: 11/20/2023 [facility] Work Phone: Comment on above: Expected: 09/20/2023 , Expires: 11/20/2023 Start: 09-20-2023 End: 11-20-2023 Magnesium [Mass/volume] in Serum or Plasma MAGNESIUM BLD Lab Routine Medication management GERD without esophagitis Expected: 09/20/2023, Expires: 11/20/2023 [facility] Work Phone: Comment on above: Expected: 09/20/2023 , Expires: 11/20/2023 Start: 09-20-2023 End: 11-20-2023 Thyrotropin [Units/volume] in Serum or Plasma TSH BLD Lab Routine Multiple thyroid nodules Expected: 09/20/2023, Expires: 11/20/2023 [facility] Work Phone: Comment on above: Expected: 09/20/2023 , Expires: 11/20/2023 Start: 09-20-2023 End: 11-20-2023 Urinalysis complete panel - Urine URINALYSIS, WITH MICROSCOPIC Lab Routine Essential hypertension, benign Expected: 09/20/2023, Expires: 11/20/2023 [facility] Work Phone: Comment on above: Expected: 09/20/2023 , Expires: 11/20/2023 Start: 09-02-2023 Behavioral Health Screening Behavioral Health Screening [facility] Start: 07-31-2023 BP CONTROLLED (<130/80) BP CONTROLLE D (<130/80) [facility] Start: 07-31-2023 Mammography [facility] Start: 07-09-2023 ANNUAL PCP TEAM FUEL EFFICIENT [employer] DES[employer]ER DONTAE DISEASE VISIT ANNUAL PCP TEAM CHRONIC DISEASE VISIT [facility] Start: 07-09-2023 BP CONTROLLED (<130/80) BP CONTROLLE D (<130/80) [facility] Start: 06-06-2023 End: 08-06-2023 CBC W Auto Differential panel - Blood CBC + DIFF Lab Routine Leukocytosis, unspecified type Expected: 06/06/2023, Expires: 08/06/2023 [facility] Work Phone: Comment on above: Expected: 06/06/2023 , Expires: 08/06/2023 Start: 06-02-2023 End: 06-02-2023 [facility] Start: 06-02-2023 Patient discharge [facility] Start: 06-01-2023 [facility] Start: 06-01-2023 Blood chemistry [facility] Start: 06-01-2023 Application of intermittent pneumatic compression device [facility] Start: 06-01-2023 Following clinical p athway protocol [facility] Start: 06-01-2023 Assessment of risk o f venous thromboembolism [facility] Start: 06-01-2023 Documentation procedure [facility] Start: 06-01-2023 Insertion of cathete r into peripheral vein [facility] Start: 06-01-2023 Insertion of nasogas tric tube [facility] Start: 06-01-2023 Oxygen therapy [facility] Start: 06-01-2023 Providing care accor ding to standard [facility] Start: 06-01-2023 Referral to general surgeon [facility] Start: 06-01-2023 End: 06-01-2023 [facility] Start: 06-01-2023 Verification routine [facility] Start: 06-01-2023 Admission procedure [facility] Start: 05-28-2023 ANNUAL PCP TEAM FUEL EFFICIENT [employer]ER DONTAE DISEASE VISIT ANNUAL PCP TEAM CHRONIC DISEASE VISIT [facility] Start: 05-28-2023 BP CONTROLLED (<130/80) BP CONTROLLE D (<130/80) [facility] Start: 05-03-2023 Influenza vaccination C [facility] Start: 04-30-2023 ANNUAL PCP TEAM FUEL EFFICIENT [employer] DES[employer]ER DONTAE DISEASE VISIT ANNUAL PCP TEAM CHRONIC DISEASE VISIT [facility] Start: 04-30-2023 BP CONTROLLED (<130/80) BP CONTROLLE D (<130/80) [facility] Start: 04-06-2023 BP CONTROLLED (<130/80) BP CONTROLLE D (<130/80) [facility] Start: 03-29-2023 End: 09-27-2023 CBC W Auto Differential panel - Blood CBC + DIFF Lab Routine Thrombocytosis Expected: 03/29/2023, Expires: 05/29/2023 [facility] Work Phone: Comment on above: Expected: 03/29/2023 , Expires: 05/29/2023 Start: 03-23-2023 ANNUAL PCP TEAM FUEL EFFICIENT [employer] DES[employer] DONTAE DISEASE VISIT ANNUAL PCP TEAM CHRONIC DISEASE VISIT [facility] Start: 03-23-2023 BP CONTROLLED (<130/80) BP CONTROLLE D (<130/80) [facility] Start: 03-14-2023 BP CONTROLLED (<130/80) BP CONTROLLE D (<130/80) [facility] Start: 02-27-2023 End: 04-29-2023 CBC W Auto Differential panel - Blood CBC + DIFF Lab Routine Thrombocytosis Expected: 02/27/2023, Expires: 04/29/2023 [facility] Work Phone: Comment on above: Expected: 02/27/2023 , Expires: 04/29/2023 Start: 02-27-2023 End: 04-29-2023 Ferritin [Mass/volume] in Serum or Plasma FERRITIN BLD Lab Routine Thrombocytosis Expected: 02/27/2023, Expires: 04/29/2023 [facility] Work Phone: Comment on above: Expected: 02/27/2023 , Expires: 04/29/2023 Start: 02-27-2023 End: 04-29-2023 Iron and Iron binding capacity panel - Serum or Plasma IRON + TIBC Lab Routine Thrombocytosis Expected: 02/27/2023, Expires: 04/29/2023 [facility] Work Phone: Comment on above: Expected: 02/27/2023 , Expires: 04/29/2023 Start: 12-19-2022 ANNUAL PCP TEAM FUEL EFF[employer]IENT [employer] DONTAE DISEASE VISIT ANNUAL PCP TEAM CHRONIC DISEASE VISIT [facility] Start: 12-19-2022 BP CONTROLLED (<130/80) BP CONTROLLE D (<130/80) [facility] Start: 12-04-2022 End: 02-03-2023 CREATININE BLD CREATININE BLD Lab Routine Essential hypertension, benign Expected: 12/04/2022, Expires: 02/03/2023 [facility] Work Phone: Comment on above: Expected: 12/04/2022 , Expires: 02/03/2023 Start: 11-19-2022 End: 01-19-2023 Thyrotropin [Units/volume] in Serum or Plasma [facility] Work Phone: Comment on above: Expected: 11/19/2022 , Expires: 01/19/2023 Start: 11-19-2022 End: 01-19-2023 Thyroxine (T4) free [Mass/volume] in Serum or Plasma [facility] Work Phone: Comment on above: Expected: 11/19/2022 , Expires: 01/19/2023 Start: 10-31-2022 End: 12-31-2022 CBC W Auto Differential panel - Blood CBC + DIFF Lab Routine Leukocytosis, unspecified type Expected: 10/31/2022, Expires: 12/31/2022 [facility] Work Phone: Comment on above: Expected: 10/31/2022 , Expires: 12/31/2022 Start: 10-24-2022 ANNUAL PCP TEAM FUEL EFF[employer]IENT [employer] DES[employer] DONTEA DISEASE VISIT ANNUAL PCP TEAM CHRONIC DISEASE VISIT [facility] Start: 10-24-2022 BP CONTROLLED (<130/80) BP CONTROLLE D (<130/80) [facility] Start: 09-12-2022 End: 11-12-2022 CBC W Auto Differential panel - Blood CBC + DIFF Lab Routine Medication management Expected: 09/12/2022, Expires: 11/12/2022 [facility] Work Phone: Comment on above: Expected: 09/12/2022 , Expires: 11/12/2022 Start: 09-12-2022 End: 11-12-2022 Cobalamin (Vitamin B12) [Mass/volume] in Serum or Plasma VITAMIN B12 BLOOD Lab Routine Medication management GERD without esophagitis Expected: 09/12/2022, Expires: 11/12/2022 [facility] Work Phone: Comment on above: Expected: 09/12/2022 , Expires: 11/12/2022 Start: 09-12-2022 End: 11-12-2022 Comprehensive metabolic 2000 panel - Serum or Plasma COMP METABOLIC PANEL Lab Routine Essential hypertension, benign Expected: 09/12/2022, Expires: 11/12/2022 [facility] Work Phone: Comment on above: Expected: 09/12/2022 , Expires: 11/12/2022 Start: 09-12-2022 End: 11-12-2022 Hemoglobin A1c in Blood HGB A1C Lab Routine Elevated blood sugar Expected: 09/12/2022, Expires: 11/12/2022 [facility] Work Phone: Comment on above: Expected: 09/12/2022 , Expires: 11/12/2022 Start: 09-12-2022 End: 11-12-2022 LIPID PANEL, NONFASTING LIPID PANEL, NONFASTING Lab Routine Essential hypertension, benign Expected: 09/12/2022, Expires: 11/12/2022 [facility] Work Phone: Comment on above: Expected: 09/12/2022 , Expires: 11/12/2022 Start: 09-12-2022 End: 11-12-2022 Magnesium [Mass/volume] in Serum or Plasma MAGNESIUM BLD Lab Routine Medication management GERD without esophagitis Expected: 09/12/2022, Expires: 11/12/2022 [facility] Work Phone: Comment on above: Expected: 09/12/2022 , Expires: 11/12/2022 Start: 09-12-2022 End: 11-12-2022 Thyrotropin [Units/volume] in Serum or Plasma TSH BLD Lab Routine Multiple thyroid nodules Expected: 09/12/2022, Expires: 11/12/2022 [facility] Work Phone: Comment on above: Expected: 09/12/2022 , Expires: 11/12/2022 Start: 09-12-2022 End: 11-12-2022 Urinalysis complete panel - Urine URINALYSIS, WITH MICROSCOPIC Lab Routine Essential hypertension, benign Expected: 09/12/2022, Expires: 11/12/2022 [facility] Work Phone: Comment on above: Expected: 09/12/2022 , Expires: 11/12/2022 Start: 09-02-2022 ADVANCE DIRECTIVE DISCUSSION ADVANCE DIRECTIVE DISCUSSION [facility] Start: 09-02-2022 DEPRESSION ASSESSMENT DEPRESSION ASS ESSMENT [facility] Start: 07-25-2022 Mammography MAMMOGRAM [facility] Start: 07-04-2022 End: 07-18-2022 Influenza virus A and B RNA and SARS-CoV-2 (COVID-19) N gene panel - Respiratory specimen by THOMAS with probe detection COVID WITH FLUA+B, ROUTINE Microbiology Routine Suspected COVID-19 virus infection Expected: 07/04/2022, Expires: 07/18/2022 [facility] Work Phone: Comment on above: Expected: 07/04/2022 , Expires: 07/18/2022 Start: 05-11-2022 FECAL OCCULT BLOOD FECAL OCCULT BLOO D [facility] Start: 05-11-2022 Screening for malign ant neoplasm of colon Fecal Occult Blood [facility] Start: 05-03-2022 Influenza vaccination INFLUENZA (#1) [facility] Start: 03-23-2022 End: 05-23-2022 CBC W Auto Differential panel - Blood [facility] Work Phone: Comment on above: Expected: 03/23/2022 , Expires: 05/23/2022 Start: 03-18-2022 Patient discharge [facility] Work Phone: Start: 03-18-2022 [facility] Work Phone: Start: 03-18-2022 [facility] Work Phone: Start: 03-17-2022 Following clinical p athway protocol [facility] Work Phone: Start: 03-17-2022 Assessment of risk o f venous thromboembolism [facility] Work Phone: Start: 03-17-2022 Incentive spirometry [facility] Work Phone: Start: 03-17-2022 Inhalation therapy procedure [facility] Work Phone: Start: 03-17-2022 Insertion of cathete r into peripheral vein [facility] Work Phone: Start: 03-17-2022 Insertion of nasogas tric tube [facility] Work Phone: Start: 03-17-2022 Introduction of urin gibson catheter [facility] Work Phone: Start: 03-17-2022 Measuring intake and output [facility] Work Phone: Start: 03-17-2022 Oxygen therapy [facility] Work Phone: Start: 03-17-2022 Providing care accor ding to standard [facility] Work Phone: Start: 03-17-2022 Provision of activit y privileges [facility] Work Phone: Start: 03-17-2022 Referral to general surgeon [facility] Work Phone: Start: 03-17-2022 Referral to service [facility] Work Phone: Start: 03-17-2022 [facility] Work Phone: Start: 03-17-2022 Verification routine [facility] Work Phone: Start: 03-17-2022 Admission procedure [facility] Work Phone: Start: 03-17-2022 Plain X-ray abdomen Abdomen Si ngle View (Portable) [facility] Work Phone: Start: 03-17-2022 XR Abdomen Single view [facility] Work Phone: Start: 03-17-2022 [facility] Work Phone: Start: 02-13-2022 BP CONTROLLED (<130/80) BP CONTROLLE D (<130/80) [facility] Start: 01-19-2022 End: 03-21-2022 VITAMIN B12 BLOOD VITAMIN B12 BLOOD Lab Routine High serum vitamin B12 Expected: 01/19/2022, Expires: 03/21/2022 [facility] Work Phone: Comment on above: Expected: 01/19/2022 , Expires: 03/21/2022 Start: 01-19-2022 End: 03-21-2022 VITAMIN D 25 HYDROXY VITAMIN D 25 HYDROXY Lab Routine High vitamin D level Expected: 01/19/2022, Expires: 03/21/2022 [facility] Work Phone: Comment on above: Expected: 01/19/2022 , Expires: 03/21/2022 Start: 12-19-2021 End: 02-18-2022 Ascorbate [Mass/volume] in Serum or Plasma [facility] Work Phone: Comment on above: Expected: 12/19/2021 , Expires: 02/18/2022 Start: 12-19-2021 End: 02-18-2022 Folate [Mass/volume] in Serum or Plasma [facility] Work Phone: Comment on above: Expected: 12/19/2021 , Expires: 02/18/2022 Start: 12-19-2021 End: 02-18-2022 IRON + TIBC [facility] Work Phone: Comment on above: Expected: 12/19/2021 , Expires: 02/18/2022 Start: 12-19-2021 End: 02-18-2022 VITAMIN B12 BLOOD [facility] Work Phone: Comment on above: Expected: 12/19/2021 , Expires: 02/18/2022 Start: 12-19-2021 End: 02-18-2022 VITAMIN D 25 HYDROXY [facility] Work Phone: Comment on above: Expected: 12/19/2021 , Expires: 02/18/2022 Start: 09-02-2021 ADVANCE DIRECTIVE DISCUSSION ADVANCE DIRECTIVE DISCUSSION [facility] Start: 09-02-2021 DEPRESSION ASSESSMENT DEPRESSION ASS ESSMENT [facility] Start: 2016 RSV Vaccine (1 - 1-d ose 60+ series) RSV Vaccine (1 - 1-dose 60+ series) [facility] Start: 2001 COLOGUARD (FIT-DNA) [facility] Start: [address] COLONOGRAPHY [facility] Start: 2001 Screening for malign ant neoplasm of colon [facility] Start: 2001 [facility] Start: 1986 Zoledronic acid therapy ALPHA- 1 ANTITRYPSIN DEFICIENCY SCREENING [facility] Start: 1974 Depression Screening Depression Scre ening [facility] Anion gap measurement [facility] Bacteria identified in Urine by Culture URINE CULTURE Microbiology Routine Dysuria 06/03/2024 10:52 AM EDT [facility] End: 10-31-2025 BD DXA TRABECULAR BONE SCORE (TBS) BD DXA TRABECULAR BONE SCORE (TBS) Radiology Routine Osteoporosis, unspecified osteoporosis type, unspecified pathological fracture presence 1 Occurrences starting 10/01/2024 until 10/31/2025 [facility] Comment on above: 1 Occurrences starti ng 10/01/2024 until 10/31/2025 BUN/Creatinine ratio [facility] Calcium [Mass/volume ] in Serum or Plasma [facility] Carbon dioxide, tota l [Moles/volume] in Serum or Plasma [facility] Chlamydia trachomatis+Neisseria gonorrhoeae DNA [Presence] in Unspecified specimen by THOMAS with probe detection GONORRHEA/CHLAMYDIA NAAT Lab Routine Dysuria Ordered: 06/03/2024 [facility] Comment on above: Ordered: 06/03/2024 Chloride [Moles/volu me] in Serum or Plasma [facility] COVID & INFLUENZA A/ B & RSV NAAT, ROUTINE COVID & INFLUENZA A/B & RSV NAAT, ROUTINE Microbiology Routine Suspected COVID-19 virus infection 06/08/2023 11:28 AM EDT [facility] Work Phone: Creatinine [Moles/vo lume] in Serum or Plasma [facility] End: 01-03-2024 Ct abdomen & pelvis w/contrast material CT ABD/PEL W IVCON Radiology Routine Ex-smoker Weight loss, unintentional 1 Occurrences starting 12/04/2022 until 01/03/2024 [facility] Work Phone: Comment on above: 1 Occurrences starti ng 12/04/2022 until 01/03/2024 CT Chest [facility] CT Chest [facility] End: 12-19-2023 Ct thorax w/o contrast material CT CHEST WO IVCON Radiology Routine Weight loss Ex-smoker Lung nodules 1 Occurrences starting 11/19/2022 until 12/19/2023 [facility] Work Phone: Comment on above: 1 Occurrences starti ng 11/19/2022 until 12/19/2023 End: 03-16-2024 CTA HEAD W IVCON CTA HEAD W IVCON Radiology Routine New onset of headaches after age 50 1 Occurrences starting 02/15/2023 until 03/16/2024 [facility] Work Phone: Comment on above: 1 Occurrences starti ng 02/15/2023 until 03/16/2024 End: 10-31-2025 DXA Skeletal system.axial Views for bone density DXA-AXIAL SKELETON Radiology Routine Osteoporosis, unspecified osteoporosis type, unspecified pathological fracture presence 1 Occurrences starting 10/01/2024 until 10/31/2025 [facility] Work Phone: Comment on above: 1 Occurrences starti ng 10/01/2024 until 10/31/2025 End: 10-27-2023 DXA-AXIAL SKELETON DXA-AXIAL SKELETON Radiology Routine Osteoporosis, unspecified osteoporosis type, unspecified pathological fracture presence 1 Occurrences starting 09/27/2022 until 10/27/2023 [facility] Work Phone: Comment on above: 1 Occurrences starti ng 09/27/2022 until 10/27/2023 End: 07-09-2023 ECG COMPLETE ECG COMPLETE ECG Routine Feeling of chest tightness Chest heaviness SOB (shortness of breath) 1 Occurrences starting 07/09/2022 until 07/09/2023 [facility] Work Phone: Comment on above: 1 Occurrences starti ng 07/09/2022 until 07/09/2023 End: 01-05-2026 Echocardiography ECHO Cardiology Routine Ectatic thoracic aorta 1 Occurrences starting 01/05/2025 until 01/05/2026 [facility] Work Phone: Comment on above: 1 Occurrences starti ng 01/05/2025 until 01/05/2026 Glucose [Mass/volume ] in Serum or Plasma [facility] Helicobacter pylori Ag [Presence] in Stool by Immunoassay [facility] Hematocrit [Volume Fraction] of Blood [facility] Hemoglobin [Mass/vol ume] in Blood [facility] Leukocytes [#/volume ] in Blood [facility] Magnesium [Mass/volu me] in Serum or Plasma [facility] Work Phone: Mean corpuscular hemoglobin concentration determination [facility] Mean corpuscular hemoglobin determination [facility] Measurement of renal function [facility] MG Breast Screening MARCIANO SCREENIN G Radiology Routine Encounter for screening mammogram for breast cancer 07/01/2024 11:46 AM EDT [facility] Work Phone: End: 06-03-2026 MR Lumbar spine WO contrast MRI LUMBAR SPINE WO IVCON Radiology Routine Lumbar radiculopathy Lumbar back pain Radiculopathy of lumbar region 1 Occurrences starting 05/04/2025 until 06/03/2026 [facility] Work Phone: Comment on above: 1 Occurrences starti ng 05/04/2025 until 06/03/2026 End: 04-25-2025 MR Shoulder - left WO and W contrast IV MRI SHOULDER WO/W IVCON LEFT Radiology Routine Fall, initial encounter Acute pain of left shoulder 1 Occurrences starting 03/26/2024 until 04/25/2025 [facility] Work Phone: Comment on above: 1 Occurrences starti ng 03/26/2024 until 04/25/2025 Neutrophil count [facility] Neutrophil percent differential count [facility] Patient Education ED Anxiety Reaction [facility] Work Phone: Patient referral [facility] Work Phone: Platelets [#/volume] in Blood [facility] Potassium [Moles/vol ume] in Serum or Plasma [facility] Red blood cell count [facility] Red cell distributio n width determination [facility] ROUTINE FLU A/B + RSV ROUTINE FL U A/B + RSV Lab Routine Suspected COVID-19 virus infection 06/08/2023 11:28 AM EDT [facility] Work Phone: SARS-CoV-2 (COVID-19 ) RNA [Presence] in Respiratory specimen by THOMAS with probe detection COVID NAAT, UPPER RESPIRATORY, ROUTINE Microbiology Routine Suspected COVID-19 virus infection 06/08/2023 11:28 AM EDT [facility] Work Phone: End: 08-30-2023 Screening mammography bi 2-view breast inc cad MARCIANO SCREENING Radiology Routine Encounter for gynecological examination (general) (routine) without abnormal findings Encounter for screening mammogram for breast cancer 1 Occurrences starting 07/31/2022 until 08/30/2023 [facility] Work Phone: Comment on above: 1 Occurrences starti ng 07/31/2022 until 08/30/2023 Sodium [Moles/volume ] in Serum or Plasma [facility] TRICHOMONAS VAGINALIS NAAT TRICH OMONAS VAGINALIS NAAT Lab Routine Dysuria Ordered: 06/03/2024 [facility] Work Phone: Comment on above: Ordered: 06/03/2024 Urea nitrogen [Mass/volume] in Serum or Plasma [facility] End: 12-19-2023 US ABDOMEN COMPLETE US ABDOMEN COMPLETE Radiology Routine Weight loss Ex-smoker 1 Occurrences starting 11/19/2022 until 12/19/2023 [facility] Work Phone: Comment on above: 1 Occurrences starti ng 11/19/2022 until 12/19/2023 End: 04-22-2023 Us pelvic nonobstetric real-time image complete US FEMALE PELVIS TRANSABD COMPLETE Radiology Routine Enlarged uterus Lower abdominal pain 1 Occurrences starting 03/23/2022 until 04/22/2023 [facility] Work Phone: Comment on above: 1 Occurrences starti ng 03/23/2022 until 04/22/2023 End: 04-22-2023 Us transvaginal US FEMALE PELVIS TRANSVAG Radiology Routine Enlarged uterus Lower abdominal pain 1 Occurrences starting 03/23/2022 until 04/22/2023 [facility] Work Phone: Comment on above: 1 Occurrences starti ng 03/23/2022 until 04/22/2023 Us transvaginal US FEMALE PELVIS TRANSVAG Radiology Routine Enlarged uterus Lower abdominal pain 03/29/2022 10:30 AM EDT [facility] Work Phone: Vitamin D, 25-hydrox y measurement [facility] XR ABDOMEN 1V SUPINE XR ABDOMEN 1V SUPINE Radiology Routine Partial intestinal obstruction, unspecified cause (HCC) 03/23/2022 8:49 AM EDT [facility] Work Phone: End: 09-02-2025 XR Pelvis and Hip - left AP and Lateral frog XR HIP GENERAL 3V PELV/AP/LAT LEFT Radiology Routine Left hip pain 1 Occurrences starting 08/03/2024 until 09/02/2025 [facility] Work Phone: Comment on above: 1 Occurrences starti ng 08/03/2024 until 09/02/2025 XR Pelvis and Hip - left AP and Lateral frog XR HIP GENERAL 3V PELV/AP/LAT LEFT Radiology Routine Left hip pain 08/03/2024 10:22 AM EST [facility] End: 11-13-2024 XR Shoulder - right 3 Views XR SHOULDER GENERAL 3V OR MORE AP/TRUE AP/OTHER RIGHT Radiology Routine Neck pain Acute pain of right shoulder 1 Occurrences starting 10/15/2023 until 11/13/2024 [facility] Work Phone: Comment on above: 1 Occurrences starti ng 10/15/2023 until 11/13/2024 XR Shoulder - right 3 Views XR SHOULDER GENERAL 3V OR MORE AP/TRUE AP/OTHER RIGHT Radiology Routine Neck pain Acute pain of right shoulder 10/15/2023 9:38 AM EST [facility] Work Phone: [facility] Immun[facility] Immunization Date Immunization Notes Care Provider Radha lorenzana 06-30-2024 influenza virus vacc ine, unspecified formulation Shanita Green PA-C Work Phone: [facility] 12-26-2023 pneumococcal conjuga te (PCV20) vaccine, 20 valent (PREVNAR 20) Rito Camp MD Work Phone: [facility] 12-26-2023 respiratory syncytia l virus (RSV) vaccine, adjuvanted (AREXVY) Rito Camp MD Work Phone: [facility] 06-05-2023 influenza, high dose seasonal, preservative-free Rito Camp MD Work Phone: [facility] 06-05-2023 influenza virus vacc ine, unspecified formulation Christine Parker RN [facility] 06-27-2022 influenza (aIIV4) vaccine, age 65+ yr, quadrivalent, PF (FLUAD QUADRIVALENT) Kami Hunter RN Work Phone: [facility] 06-27-2022 influenza virus vacc ine, unspecified formulation Rito Camp MD Work Phone: [facility] 11-14-2021 pneumococcal (PCV20) vaccine, 20 valent (PREVNAR 20) Kami Hunter RN [facility] 06-10-2021 COVID-19 vaccine, ag e 12+ yr (PFIZER-BIONTECH - [facility]) Kami Hunter RN [facility] 05-29-2021 influenza, seasonal, injectable Kami Hunter RN [facility] 05-03-2021 Covid (Pfizer) Dr. Rito corona Work Phone: [facility] 04-02-2021 Covid (Pfizer) Dr. Rito corona Work Phone: [facility] 05-18-2020 influenza, injectabl e, quadrivalent, preservative free Kami Hunter RN [facility] Work Phone: 05-18-2020 influenza, seasonal, injectable Kami Hunter RN [facility] 05-18-2020 pneumococcal conjuga te vaccine, 13 valent Kami Hunter RN [facility] 05-19-2019 influenza, injectabl e, quadrivalent, preservative free Kami Hunter [facility] Work Phone: 05-19-2019 influenza, seasonal, injectable Kami Hunter RN [facility] 05-19-2019 pneumococcal polysaccharide vaccine, 23 valent Kami Hunter RN [facility] 04-04-2019 zoster vaccine recombinant Kami Hunter [facility] 12-18-2018 tetanus toxoid, redu darnell diphtheria toxoid, and acellular pertussis vaccine, adsorbed Kami Hunter [facility] Work Phone: 12-18-2018 zoster vaccine recombinant Kami Hunter [facility] Work Phone: 05-18-2018 influenza, seasonal, injectable Kami Hunter RN [facility] 05-12-2018 influenza, injectabl e, quadrivalent, contains preservative Kami Hunter RN [facility] 05-15-2017 influenza, seasonal, injectable Kami [facility] 05-15-2017 tetanus toxoid, redu darnell diphtheria toxoid, and acellular pertussis vaccine, adsorbed Kami Hunter RN [facility] 06-15-2015 influenza virus vacc ine, unspecified formulation Kami Hunter RN [facility] 06-12-[address] Rito Camp Work Phone: [facility] 06-12-2013 influenza, seasonal, injectable Kami Hunter RN [facility] 05-31-2012 influenza virus vacc ine, unspecified formulation Kami Hunter RN [facility] 06-21-2010 influenza virus vacc ine, unspecified formulation Kami Hunter RN [facility] 05-23-2009 influenza virus vacc ine, live, attenuated, for intranasal use [facility] Work Phone: 07-08-2007 influenza virus vacc ine, unspecified formulation Kami Hunter RN [facility] 07-04-2005 pneumococcal polysaccharide vaccine, 23 valent Kami Hunter RN [facility] Work Phone: 01-05-2005 pneumococcal (PCV15) vaccine, 15 valent (VAXNEUVANCE) Shanita Green PA-C Work Phone: [facility] 01-05-[address] Kwan Camp Work Phone: [facility] Work Phone: 01-05-2005 pneumococcal vaccine , unspecified formulation Shanita Green PA-C Work Phone: [facility] Payers Date Payer Category Payer Self-pay [id number] 2020 Medicare (Managed Care) JANET RAMAN O [id number] 2020 Unknown JANET FERNÁNDEZ S AND BLUE SHIELD [facility] [id number] 2020-Present [phone] [address] [place] [address] [facility] [id number] 2020 Unknown [id number] 2014 Medicare [employer] MEDIC[employer] THP SECURECARE MDCR HMO [id number] 2014-2020 [address] [facility] [address] [address] O [id number] 2014 Unknown [id number] 2013 Unknown [id number] 2012 Unknown [id number] Unknown [id number] 2.462 Unknown [id number]. 2.462 Unknown [id number] 2.840.1.832323.3.579. 2.462 Unknown [id number] 2.840.1.118725.3.579. 2.462 Unknown [id number] 2.840.1.743650.3.579. 2.462 Unknown [id number] 2.840.1.133502.3.579. 2.462 Unknown [id number] 2.840.1.910392.3.579. 2.462 Unknown [id number] 2.840.1.888738.3.579. 2.462 Unknown [id number] [id number]. 2.462 Unknown [id number] 2.16840.1.980695.3.579. 2.462 Unknown [id number] [id number]. 2.462 Unknown [id number] [id number]. 2.462 Unknown [id number] 2.16840.1.537943.3.579. 2.462 Unknown [id number] 2.16.840.1.873409.3.579. 2.462 Unknown [id number] [id number]. 2.462 Unknown [id number]. 2.462 Social History Date Type Detail Facility Start: 08-06-2012 End: 06-03-2024 Tobacco smoking status NHIS Ex-smoker [facility] Start: 07-31-1990 End: 07-31-2005 History of tobacco use Current smoker [facility] Start: 07-31-1990 End: 07-31-2005 History of tobacco use Cigarette Smoker [facility] Start: 08-06-2012 End: 01-21-2023 Cigarettes smoked current (pack per day) - Reported 1.5 [facility] Work Phone: Start: 08-06-2012 End: 06-03-2024 Tobacco use and exposure Smokeless tobacco non-user [facility] Start: 10-24-2021 End: 05-16-2025 Alcohol intake Current drinker of alcohol (finding) [facility] Start: 06-18-2016 History SDOH Alcohol Comment 5-8 beers daily [facility] Start: 1955 Sex Assigned At Not on file [facility] Start: 06-23-2020 End: 07-31-2022 Exposure to SARS-CoV-2 (event) Not sure [facility] Work Phone: Start: 07-11-2021 End: 06-01-2023 Tobacco smoking status INIS Unknown if ever smoked [facility] Start: 1955 Sex Assigned At Female [facility] Start: 03-16-2022 End: 03-26-2022 Exposure to SARS-CoV-2 (event) Unable to assess [facility] Work Phone: Start: 01-21-2023 End: 02-20-2023 Tobacco use panel [facility] Work Phone: Start: 08-03-2012 Adult Depression Screening Assessment 0 [facility] Work Phone: Start: 07-18-2013 Occasional [facility] Start: 07-18-2013 None [facility] Start: 07-18-2013 Spouse/ Signif icant Other [facility] Start: 07-18-2013 Non-smoker [facility] (I/We) worried wheth er (my/our) food would run out before (I/we) got money to buy more. Never true [facility] Do you belong to any clubs or organizations such as pentecostal groups, unions, fraAudience or athletic groups, or school groups? No [facility] Are you now , , , , never or living with a partner? [facility] How often to you hav e a drink containing alcohol? 4 or more times a week [facility] How many standard drinks containing alcohol do you have on a typical day? 5 or 6 [facility] How often do you hav e 6 or more drinks on 1 occasion? Daily or almost daily [facility] Do you feel stress - tense, restless, nervous, or anxious, or unable to sleep at night because your mind is troubled all the time - these days [OSQ] To some extent [facility] Start: 11-30-2024 Sex Female (finding) [facility] Start: 05-06-2025 [facility] NEGATED: Highlighted row [facility] NEGATED: Highlighted row Not [facility] Goals Date Patient Goal Desired Activity /State [...] Assessment Result Facility 06-02-2023 Functional status Ambulates [facility] Work Phone: 03-18-2022 Functional status Ambulates;Up ad moisés [facility] Work Phone: 10-14-2018 Are you deaf, or do you have serious difficulty hearing No 10/14/2018 5:48 PM Darvin Proctor III, MD No [facility] 10-14-2018 Are you blind, or do you have serious difficulty seeing, even when wearing glasses No 10/14/2018 5:48 PM Darvin Proctor III, MD No [facility] 10-14-2018 Do you have serious difficulty walking or climbing stairs No 10/14/2018 5:48 PM Darvin Proctor III, MD No [facility] 10-14-2018 Do you have difficul ty dressing or bathing No 10/14/2018 5:48 PM Darvin Proctor III, MD [facility] 10-14-2018 Because of a physica l, mental, or emotional condition, do you have difficulty doing errands alone such as visiting a physician's office or shopping No 10/14/2018 5:48 PM Darvin Proctor III, MD [facility] Mental Status Date Assessment Result Facility 03-31-2025 Cognitive function Voice/Name [facility] Work Phone: 06-01-2023 Cognitive function Voice/Name [facility] Work Phone: 03-18-2022 Cognitive function Demonstrates ability to follow instructions/comprehend [facility] Work Phone: 03-17-2022 Cognitive function Voice/Name [facility] Work Phone: 10-14-2018 Because of a physica l, mental, or emotional condition, do you have serious difficulty concentrating, remembering, or making decisions No 10/14/2018 5:48 PM Darvin Proctor III, MD No [facility] Clinical Notes 01-03-2017 to 07-06-2025 Debo Fernandes, RT(R) - 05/16/2025 12:30 PM EDTMooKy morrow APRN.GRAVEL SCREENER - 05/16/2025 12:14 PM EDTTelephone Encounter - Jacki MarkMANDIE - 05/14/2025 10:43 AM EDT Note Date & Type Note Facility 07-06-2025 Note HNO ID: [id number] Author: ALEX BROWN APRN.LUIS FELIPE Service: ? Author Type: Nurse Practitioner Type: Progress Notes Filed: 07/06/2025 09:38 Note Text: Chief Complaint Patient presents with: Follow Up: Right wrist pain since fall 05/15 HPI Diony Ramirez is a 70 year old female who presents here today for Above Complaints.. Patient presents for follow up for right wrist pain. Was seen 05/27 for right wrist pain and trauma, xray negative. Reports continued pain in wrist with movement, has been wearing wrist brace as directed and taking celebrex. Also reports continued insomnia despite being on trazodone and seroquel as magnesium and melatonin. Past medical history, appointments, medications, allergies reviewed. [...] 2D ECHO (EXEP) 05/23/2021 EF=65%, 1+TI. COLONOSCOPY N/A 03/31/2025 [facility] - Dr. Gill COLONOSCOPY FLX DX W/COLLJ SPEC WHEN PFRMD 08/19/2006 Repeat in COLONOSCOPY FLX DX W/COLLJ SPEC WHEN PFRMD 06/27/2016 Colonoscopy CRANIOPLASTY SKULL DEF/REPAIR/ BRAIN 09/14/2014 See scanned documents - status post EGD W/O [facility] SPEC VARICIES INJ N/A 03/31/2025 [facility] - Dr. Gill ESOPHAGOGASTRODUODENOSCOPY TRANSORAL DIAGNOSTIC 06/27/2016 EGD ESOPHAGOGASTRODUODENOSCOPY TRANSORAL [...] on File Prior to Visit Medication Sig celecoxib (CELEBREX) 100 mg capsule Take 1 capsule by mouth two times a day. cyclobenzaprine (FLEXERIL) 10 mg tablet Take 1 tablet by mouth three times a day as needed for muscle spasm. omeprazole (PRILOSEC) 40 mg capsule Take 1 capsule by mouth once daily. QUEtiapine (SEROQUEL) 50 mg tablet Take 1 tablet by mouth daily at bedtime. traZODone (DESYREL) 150 mg tablet Take 1 tablet by mouth daily at bedtime. alendronate (FOSAMAX) 70 mg tablet Take 1 tablet by mouth one time a week. (more content not included)... [facility] 07-05-2025 Note HNO ID: [id number] Author: DESTINI CHAVARRIA Mammo Tech Service: ? Author Type: Recreation Attendant Type: Progress Notes Filed: 07/05/2025 11:47 Note Text: Radiology Service Progress Note PATIENT NAME: Diony Ramirez DATE OF SERVICE: July 05, 2025 TIME: 11:46 AM PATIENT IDENTITY VERIFICATION COMPLETED USING TWO [...] PATIENT PRESENTS WITH AN IMPLANTABLE OR ATTACHED LOCKSTITCH TOPSTITCHER: No RADIOLOGY DEPARTMENT: Mammography PERIPHERAL IV DATA: Not applicable SIGNED BY: Bassam Gary July 05, 2025 11:46 AM [facility] 06-09-2025 Note HNO ID: [id number] Author: GERALD JOHN MA Service: ? Author Type: Pet Sitting Type: Progress Notes Filed: 06/09/2025 09:07 Note Text: Scan on 06/08/2025 4:34 PM by Provider, [facility]: Aneudy Hargrove [facility] 05-27-2025 Note HNO ID: [id number] Author: DEBO FERNANDES RT(R) Service: ? Author Type: Technologist Type: Progress Notes Filed: 05/27/2025 09:38 Note Text: Radiology Service Progress Note PATIENT NAME: Diony Ramirez DATE OF SERVICE: May 27, 2025 TIME: 9:18 AM PATIENT IDENTITY VERIFICATION COMPLETED USING TWO [...] PATIENT PRESENTS WITH AN IMPLANTABLE OR ATTACHED LOCKSTITCH TOPSTITCHER: No RADIOLOGY DEPARTMENT: General X-ray: Exam(s) Completed: Upper Extremity X-Ray(s): Wrist, right and Hand, right PERIPHERAL IV DATA: Not applicable SIGNED BY: RT Rafa(R) May 27, 2025 9:18 AM [facility] 05-27-2025 Note HNO ID: [id number] Author: RITO CAMP MD Service: ? Author Type: Physician Type: Progress Notes Filed: 05/27/2025 21:09 Note Text: Chief Complaint Patient presents with: Wrist Pain: Fell down stairs HPI Diony Ramirez is a 70 year old female who presents here today for wrist pain. Patient here today for evaluation of R wrist pain after a fall going down steps. Was seen in on 05/16/25 and had an XR completed due to increased risk of fractures. Patient continues to have a lot of pain and has significant pain. Has used several topical pain creams with no improvement, Ibuprofen 800 mg, wrist compression sleeve, and icing twice daily. Pain rated a 9/10, constant and described as a sharp, stabbing and aching pain. Patient is right hand dominant. Patient follows with Pain Mgmt, Dr. Montilla yesterday and he recommended she follow up with PCP to be re-evaluated and possibly have XR completed again. Diony Ramirez is a 70-year-old female presenting with right wrist pain following a fall and chest congestion. Diony reports a fall that occurred on Saturday while descending stairs. She believed she was on the bottom step but was not, resulting in a fall to the right side. She landed on her right wrist and hip. She has a history of sciatica and notes that the fall exacerbated her sciatic pain, for which she received an injection from her paint stripper, Dr. Epstein, yesterday. She initially sought evaluation at urgent care, where an x-ray was performed. She was initially told there might be a compression fracture, but later informed that the radiologist's report indicated no fracture. Despite this, Dr. Epstein suggested a repeat x-ray due to persistent pain. Diony describes the wrist pain as severe, stating it feels like somebody took my hand and put it on a table and hit it with a hammer. The pain is constant and has not improved since the fall. She notes that oocy-qdg-wapxfdi medications, including 800 mg of ibuprofen, have been ineffective. She has been using a wrist brace and applying ice packs twice daily, but reports no significant relief. She also tried various topical treatments, including lidocaine, Nevive, and [place], without improvement. The pain is affecting her sleep, which was already poor. She denies numbness in the fingers and notes that the initial swelling has subsided. She denies any visible bruising. In addition to wrist pain, Diony reports chest congestion that began on . She describes a productive cough with yellow sputum and occasional raspy breath sounds. She denies wheezing, increased dyspnea, hemoptysis, fevers, or chills. She has a history of COPD and asthma but notes that her current symptoms have not exacerbated these conditions. She was exposed to a sick contact prior to the onset of symptoms. She is a former smoker, having quit a long time ago. She started taking Mucinex but discontinued it. Past medical history, appointments, medications, allergies reviewed. [...] by daily ativan. 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 [facility] 05-24-2025 Note HNO ID: [id number] Author: DEEP TOLBERT RT(Renata) Service: ? Author Type: Technologist Type: Progress Notes Filed: 05/24/2025 09:03 Note Text: Radiology Service Progress Note PATIENT NAME: Diony Ramirez DATE OF SERVICE: May 24, 2025 TIME: 9:03 AM PATIENT IDENTITY VERIFICATION COMPLETED USING TWO [...] PATIENT PRESENTS WITH AN IMPLANTABLE OR ATTACHED LOCKSTITCH TOPSTITCHER: No RADIOLOGY DEPARTMENT: MR; Exam(s) Completed: Spine: Lumbar spine. Anesthesia: No. Aromatherapy Administered: No PERIPHERAL IV DATA: Not applicable SIGNED BY: RT Yoly(Renata) May 24, 2025 9:03 AM [facility] 05-16-2025 History of Presen t illness Narrative Radiology Service Progress Note PATIENT NAME: Diony Ramirez DATE OF SERVICE: May 16, 2025 TIME: 12:16 PM PATIENT IDENTITY VERIFICATION COMPLETED USING TWO [...] PATIENT PRESENTS WITH AN IMPLANTABLE OR ATTACHED LOCKSTITCH TOPSTITCHER: No RADIOLOGY DEPARTMENT: General X-ray: Exam(s) Completed: Upper Extremity X-Ray(s): Wrist, right PERIPHERAL IV DATA: Not applicable SIGNED BY: RT Rafa(Renata) May 16, 2025 12:16 PM documented in this encounter [facility] 05-16-2025 Note HNO ID: [id number] Author: DEBO FERNANDES RT(R) Service: ? Author Type: Technologist Type: Progress Notes Filed: 05/16/2025 12:25 Note Text: Radiology Service Progress Note PATIENT NAME: Diony Ramirez DATE OF SERVICE: May 16, 2025 TIME: 12:16 PM PATIENT IDENTITY VERIFICATION COMPLETED USING TWO [...] PATIENT PRESENTS WITH AN IMPLANTABLE OR ATTACHED LOCKSTITCH TOPSTITCHER: No RADIOLOGY DEPARTMENT: General X-ray: Exam(s) Completed: Upper Extremity X-Ray(s): Wrist, right PERIPHERAL IV DATA: Not applicable SIGNED BY: RT Rafa(R) May 16, 2025 12:16 PM [facility] 05-16-2025 Note HNO ID: [id number] Author: [place] SHAVER APRN.GRAVEL SCREENER Service: ? Author Type: Nurse Practitioner Type: Progress Notes Filed: 05/16/2025 13:11 Note Text: [facility]RG[facility] CARE [facility]SMAN Subjective Diony Ramirez is a 70 year old female. Patient presents with: right wrist pain: Fell 1/2 hour ago HPI About 30 minutes prior to arrival patient was walking backwards down her basement steps pulling a box of something when she missed the last step and fell landing on her right wrist. She now complains of pain diffusely around the right wrist. Denies any other injuries or health concerns. Denies any loss of consciousness vomiting or vision changes Review of Systems As above Objective BP 130/80 Pulse 94 Temp 37.3 ?C (99.1 ?F) (Tympanic) Resp 18 Wt 40.7 kg (89 lb 11.6 oz) LMP 03/23/2007 SpO2 99% BMI 20.12 kg/m? Physical Exam Vitals and nursing note reviewed. Constitutional: General: She is not in acute distress. Appearance: Normal appearance. She is not ill-appearing. HENT: Head: Normocephalic. Pulmonary: Effort: Pulmonary effort is normal. Musculoskeletal: General: Normal range of motion. Comments: Wrist diffusely tender with palpation. No obvious swelling or deformities noted. No pain into the hand or forearm. Skin: General: Skin is warm. Neurological: General: No focal deficit present. Mental Status: She is alert and oriented to person, place, and time. Psychiatric: Mood and Affect: Mood normal. Behavior: Behavior normal. {ASSESSMENT/PLAN: 1. Injury of right wrist, initial encounter - ICD9: 959.3, ICD10: S69.91XA -X-ray of the right wrist shows no acute abnormalities. Discussed with patient that symptoms are more consistent with general strains and contusions. She will use ibuprofen and/or Tylenol as needed for pain and slowly resume activities as tolerated - XR WRIST GENERAL 3V PA/LAT/OBL RIGHT Ky ALAN Shaver.GRAVEL SCREENER Disposition The patient was discharged. Procedures [facility] 05-16-2025 History of Presen t illness Narrative [facility] Subjective Diony Ramirez is a 70 year old female. Patient presents with: right wrist pain: Fell 1/2 hour ago HPI About 30 minutes prior to arrival patient was walking backwards down her basement steps pulling a box of something when she missed the last step and fell landing on her right wrist. She now complains of pain diffusely around the right wrist. Denies any other injuries or health concerns. Denies any loss of consciousness vomiting or vision changes Review of Systems As above Objective BP 130/80 Pulse 94 Temp 37.3 C (99.1 F) (Tympanic) Resp 18 Wt 40.7 kg (89 lb 11.6 oz) LMP 03/23/2007 SpO2 99% BMI 20.12 kg/m Physical Exam Vitals and nursing note reviewed. Constitutional: General: She is not in acute distress. Appearance: Normal appearance. She is not ill-appearing. HENT: Head: Normocephalic. Pulmonary: Effort: Pulmonary effort is normal. Musculoskeletal: General: Normal range of motion. Comments: Wrist diffusely tender with palpation. No obvious swelling or deformities noted. No pain into the hand or forearm. Skin: General: Skin is warm. Neurological: General: No focal deficit present. Mental Status: She is alert and oriented to person, place, and time. Psychiatric: Mood and Affect: Mood normal. Behavior: Behavior normal. {ASSESSMENT/PLAN: 1. Injury of right wrist, initial encounter - ICD9: 959.3, ICD10: S69.91XA -X-ray of the right wrist shows no acute abnormalities. Discussed with patient that symptoms are more consistent with general strains and contusions. She will use ibuprofen and/or Tylenol as needed for pain and slowly resume activities as tolerated - XR WRIST GENERAL 3V PA/LAT/OBL RIGHT Ky Shaver APRN.GRAVEL SCREENER Disposition The patient was discharged. Procedures documented in this encounter [facility] 05-14-2025 Telephone encounter Note Images from the original note were not included. Electronic PA rec'd and completed for cyclobenzaprine. This was approved. Prior authorization approved Payer: Janet Note from payer: SUNNY Case: [id number], Status: Approved, Coverage Starts on: 02/12/2025 12:00:00 AM, Coverage Ends on: 05/14/2026 12:00:00 AM. Approval Details Authorization number: [id number] Authorized from February 12, 2025 to May 14, 2026 Electronic appeal: Not supported Prior auth initiated by: Jacki Mark LPN View History Notes Time User Attachment Attachment received from payer. 05/14/2025 10:40 AM [facility], Rx Priorauth In Document Medication Being Authorized cyclobenzaprine (FLEXERIL) 10 mg tablet Take 1 tablet by mouth three times a day as needed for muscle spasm. Dispense: 30 tablet Refills: 0 Start: 05/14/2025 Class: Normal Diagnoses: Lumbar radiculopathy [M54.16], Lumbar back pain [M54.50], Radiculopathy of lumbar region [M54.16] This order has been released to its destination. To be filled at: [facility] [address] [place] [address] - [address] [facility] - [phone] [facility] 05-14-2025 Miscellaneous Notes Images from the original note were not included. Electronic PA rec'd and completed for cyclobenzaprine. This was approved. Prior authorization approved Payer: Janet Note from payer: SUNNY Case: [id number], Status: Approved, Coverage Starts on: 02/12/2025 12:00:00 AM, Coverage Ends on: 05/14/2026 12:00:00 AM. Approval Details Authorization number: [id number] Authorized from February 12, 2025 to May 14, 2026 Electronic appeal: Not supported Prior auth initiated by: Jacki Mark LPN View History Notes Time User Attachment Attachment received from payer. 05/14/2025 10:40 AM [facility], Rx Priorauth In Document Medication Being Authorized cyclobenzaprine (FLEXERIL) 10 mg tablet Take 1 tablet by mouth three times a day as needed for muscle spasm. Dispense: 30 tablet Refills: 0 Start: 05/14/2025 Class: Normal Diagnoses: Lumbar radiculopathy [M54.16], Lumbar back pain [M54.50], Radiculopathy of lumbar region [M54.16] This order has been released to its destination. To be filled at: [facility] [address] [place] [id number] - [address] - [phone] documented in this encounter [facility] 05-14-2025 Note HNO ID: [id number] Author: ALEX BROWN APRN.GRAVEL SCREENER Service: ? Author Type: Nurse Practitioner Type: Progress Notes Filed: 05/14/2025 10:42 Note Text: Chief Complaint Patient presents with: Follow Up HPI Diony Ramirez is a 70 year old female who presents here today for Above Complaints.. Patient presents for continued sciatic pain. Patient has appt with Dr. Epstein at the end of the month as well as MRI scheduled 05/24. Past medical history, appointments, medications, allergies reviewed. [...] 2D ECHO (EXEP) 05/23/2021 EF=65%, 1+TI. COLONOSCOPY N/A 03/31/2025 [facility] - Dr. Gill COLONOSCOPY FLX DX W/COLLJ SPEC WHEN PFRMD 08/19/2006 Repeat in COLONOSCOPY FLX DX W/COLLJ SPEC WHEN PFRMD 06/27/2016 Colonoscopy CRANIOPLASTY SKULL DEF/REPAIR/ BRAIN 09/14/2014 See scanned documents - status post EGD W/O [facility] SPEC VARICIES INJ N/A 03/31/2025 [facility] - Dr. Gill ESOPHAGOGASTRODUODENOSCOPY TRANSORAL DIAGNOSTIC 06/27/2016 EGD ESOPHAGOGASTRODUODENOSCOPY TRANSORAL [...] Take 1 capsule by mouth once daily. HYDROcodone-Acetaminophen (NORCO) 10-325 mg per tablet Take 1 tablet by mouth every 8 hours as needed. methylPREDNISolone (MEDROL DOSE-PACK) 4 mg Dose-Pack Take by mouth once daily. QUEtiapine (SEROQUEL) 50 mg tablet Take 1 [...] tablet by mouth two times a day. celecoxib (CELEBREX) 200 mg capsule Take 1 capsule by mout (more content not included)... [facility] 05-14-2025 History of Presen t illness Narrative Chief Complaint Patient presents with: Follow Up HPI Diony Ramirez is a 70 year old female who presents here today for Above Complaints.. Patient presents for continued sciatic pain. Patient has appt with Dr. Epstein at the end of the month as well as MRI scheduled 05/24. Past medical history, appointments, medications, allergies reviewed. [...] 2D ECHO (EXEP) 05/23/2021 EF=65%, 1+TI. COLONOSCOPY N/A 03/31/2025 [facility] - Dr. Gill COLONOSCOPY FLX DX W/COLLJ SPEC WHEN PFRMD 08/19/2006 Repeat in COLONOSCOPY FLX DX W/COLLJ SPEC WHEN PFRMD 06/27/2016 Colonoscopy CRANIOPLASTY SKULL DEF/REPAIR/ BRAIN 09/14/2014 See scanned documents - status post EGD W/O [facility] SPEC VARICIES INJ N/A 03/31/2025 [facility] - Dr. Gill ESOPHAGOGASTRODUODENOSCOPY TRANSORAL DIAGNOSTIC 06/27/2016 EGD ESOPHAGOGASTRODUODENOSCOPY TRANSORAL [...] Take 1 capsule by mouth once daily. HYDROcodone-Acetaminophen (NORCO) 10-325 mg per tablet Take 1 tablet by mouth every 8 hours as needed. methylPREDNISolone (MEDROL DOSE-PACK) 4 mg Dose-Pack Take by mouth once daily. QUEtiapine (SEROQUEL) 50 mg tablet Take 1 [...] tablet by mouth two times a day. celecoxib (CELEBREX) 200 mg capsule Take 1 capsule by mouth once daily. amLODIPine (NORVASC) 2.5 mg tablet Take 1 tablet by mouth once daily. Dextromethorphan-guaiFENesin (ROBITUSSIN COUGH-CHEST ESTEFANÍA DM) 5-100 mg/5 mL liqd Take 10 mL by mouth every 4 hours as needed. FOLIC ACID ORAL Take by mouth as [...] on file prior to visit. Social History SOCIAL HISTORY[1] Review of Symptoms REVIEW OF SYSTEMS SEE HPI EXAM: BP 153/74 Pulse 86 Wt 40 kg (88 lb 2.9 oz) LMP 03/23/2007 BMI 19.77 kg/m General Appearance: Well appearing, alert, in no acute distress, well-hydrated, well nourished. Back:Limited ROM with flexion and extension. Positive SLR right side. no pain to palpation of vertebrae, motor and sensory appear to be normal Health Maintenance List Influenza Vaccine(1) due on 05/03/2025 Mammogram Screening due on 07/01/2025 Depression Screening due on 10/01/2025 Annual PCP Team Chronic Disease Visit due on 05/04/2026 Colorectal Cancer Screening due on 06/27/2026 Bone Density Screening due on 12/28/2026 Diabetes Screening due on 09/24/2027 DTaP,Tdap,Td Vaccine(3 - Td or Tdap) due on 12/18/2028 Lipid Screening due on 09/24/2029 Advance Directive Discussion Completed RSV Vaccine Completed Medicare Advantage Annual Wellness Visit Completed Hepatitis C Screening Completed Shingrix Vaccine Completed Pneumococcal Vaccine: 50+ Completed Cervical Cancer Screening Discontinued ASSESSMENT/PLAN: 1. Lumbar radiculopathy - ICD9: 724.4, ICD10: M54.16 (primary diagnosis) Sciatica - NSAIDS- see orders - Muscle relaxant- see orders - MRI- see orders - CYCLOBENZAPRINE 10 MG TABLET - KETOROLAC 60 MG/2 ML INTRAMUSCULAR SOLUTION 2. Lumbar back pain - ICD9: 724.2, ICD10: M54.50 - CYCLOBENZAPRINE 10 MG TABLET - KETOROLAC 60 MG/2 ML INTRAMUSCULAR SOLUTION 3. Radiculopathy of lumbar region - ICD9: 724.4, ICD10: M54.16 Sciatica - NSAIDS- see orders - Muscle relaxant- see orders - MRI- see orders - CYCLOBENZAPRINE 10 MG TABLET - KETOROLAC 60 MG/2 ML INTRAMUSCULAR SOLUTION Alex Brown APRN.GRAVEL SCREENER [1] Social History Tobacco Use Smoking status: Former [...] Comment: 5-8 beers daily Drug use: No documented in this encounter [facility] 05-12-2025 Note HNO ID: [id number] Author: GERALD JOHN MA Service: ? Author Type: Pet Sitting Type: Progress Notes Filed: 05/12/2025 08:12 Note Text: Outside non [facility] ordered labs. View External Labs - H. Pylori [ID [id number]] [facility] 05-11-2025 Telephone encounter Note The following approved medication requests have been transmitted electronically. Requested Prescriptions Signed Prescriptions Disp Refills omeprazole (PRILOSEC) 40 mg capsule 90 capsule 1 Sig: Take 1 capsule by mouth once daily. Authorizing Provider: RITO CAMP MD [facility] 05-11-2025 Miscellaneous Notes The following approved medication requests have been transmitted electronically. Requested Prescriptions Signed Prescriptions Disp Refills omeprazole (PRILOSEC) 40 mg capsule 90 capsule 1 Sig: Take 1 capsule by mouth once daily. Authorizing Provider: RITO CAMP MD Prescription Refill Information The patient has been identified by name and date of : Yes Caregiver verified no other encounters exist for this prescription request: Yes Caregiver confirmed with patient/requestor that no other refills are due, in the near future, with this provider at this time: Yes The last office visit in the department: 05/04/25 Does the patient have a future office visit with this provider/department: Yes Requested Prescriptions Pending Prescriptions Disp Refills omeprazole (PRILOSEC) 40 mg capsule 90 capsule 3 Sig: Take 1 capsule by mouth once daily. Mitzy Kirkland May 11, 2025 9:05 AM documented in this encounter [facility] 05-11-2025 Telephone encounter Note Prescription Refill Information The patient has been identified by name and date of : Yes Caregiver verified no other encounters exist for this prescription request: Yes Caregiver confirmed with patient/requestor that no other refills are due, in the near future, with this provider at this time: Yes The last office visit in the department: 05/04/25 Does the patient have a future office visit with this provider/department: Yes Requested Prescriptions Pending Prescriptions Disp Refills omeprazole (PRILOSEC) 40 mg capsule 90 capsule 3 Sig: Take 1 capsule by mouth once daily. Mitzy Kirkland May 11, 2025 9:05 AM [facility] Work Phone: 05-07-2025 Note HNO ID: [id number] Author: GERALD JOHN MA Service: ? Author Type: Pet Sitting Type: Progress Notes Filed: 05/07/2025 14:55 Note Text: Scan on 05/06/2025 3:25 PM by ProviderJenna PA-C: [facility] Initial Eval [facility] 05-07-2025 History of Presen t illness Narrative Scan on 05/06/2025 3:25 PM by ProviderJenna PA-C: [facility] Initial Eval documented in this encounter [facility] 05-04-2025 Note HNO ID: [id number] Author: SHANITA GREEN PA-C Service: ? Author Type: Physician [employer] Professor Type: Progress Notes Filed: 05/04/2025 09:34 Note Text: Chief Complaint Patient presents with: Follow Up: sciatic pain discussion wants MRI HPI Diony Ramirez is a 70 year old female who presents here today for Above Complaints.. Chronic Bilateral Gluteal Pain: - Pain localized to bilateral buttocks, more severe on the right side. - Occasional tingling sensation extending to the side of the knee. - Pain exacerbated by bending down; described as feeling like being ripped apart. - Pain has progressively worsened over the past few years. - No relief from Prednisone or Hydrocodone. - Diony Ramirez is scheduled for an injection at the pain management office; uncertain about the specific location of the injection. - Diony has tried various topical treatments and heat therapy without relief. - Pain affects Diony's quality of life, limiting activities such as dancing. - Diony continues to walk approximately 0.25 miles for exercise despite pain. - Diony has a history of neuropathy affecting the anterior legs. 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 - Concerns about scar tissue from previous surgeries affecting current treatment. - Previous MRI in 2014 showed moderate to severe foraminal stenosis. - Diony has had multiple MRIs and back X-rays in the past. - Expresses fear and anxiety about injections due to a past experience with an abscess following an injection in 2012. Past medical history, appointments, medications, allergies reviewed. [...] 2D ECHO (EXEP) 05/23/2021 EF=65%, 1+TI. COLONOSCOPY N/A 03/31/2025 [facility] - Dr. Gill COLONOSCOPY FLX DX W/COLLJ SPEC WHEN PFRMD 08/19/2006 Repeat in COLONOSCOPY FLX DX W/COLLJ SPEC WHEN PFRMD 06/27/2016 Colonoscopy CRANIOPLASTY SKULL DEF/REPAIR/ BRAIN 09/14/2014 See scanned documents - status post EGD W/O [facility] SPEC VARICIES INJ N/A 03/31/2025 [facility] - Dr. Gill ESOPHAGOGASTRODUODENOSCOPY TRANSORAL DIAGNOSTIC 06/27/2016 EGD ESOPHAGOGASTRODUODENOSCOPY TRANSORAL [...] other (cerebral aneurysm) Mother Colon Polyps Father (more content not included)... [facility] 05-04-2025 History of Presen t illness Narrative Chief Complaint Patient presents with: Follow Up: sciatic pain discussion wants MRI HPI Diony Ramirez is a 70 year old female who presents here today for Above Complaints.. Chronic Bilateral Gluteal Pain: - Pain localized to bilateral buttocks, more severe on the right side. - Occasional tingling sensation extending to the side of the knee. - Pain exacerbated by bending down; described as feeling like being ripped apart. - Pain has progressively worsened over the past few years. - No relief from Prednisone or Hydrocodone. - Diony Ramirez is scheduled for an injection at the pain management office; uncertain about the specific location of the injection. - Diony has tried various topical treatments and heat therapy without relief. - Pain affects Diony's quality of life, limiting activities such as dancing. - Diony continues to walk approximately 0.25 miles for exercise despite pain. - Diony has a history of neuropathy affecting the anterior legs. 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 - Concerns about scar tissue from previous surgeries affecting current treatment. - Previous MRI in 2014 showed moderate to severe foraminal stenosis. - Diony has had multiple MRIs and back X-rays in the past. - Expresses fear and anxiety about injections due to a past experience with an abscess following an injection in 2012. Past medical history, appointments, medications, allergies reviewed. [...] 2D ECHO (EXEP) 05/23/2021 EF=65%, 1+TI. COLONOSCOPY N/A 03/31/2025 [facility] - Dr. Gill COLONOSCOPY FLX DX W/COLLJ SPEC WHEN PFRMD 08/19/2006 Repeat in COLONOSCOPY FLX DX W/COLLJ SPEC WHEN PFRMD 06/27/2016 Colonoscopy CRANIOPLASTY SKULL DEF/REPAIR/ BRAIN 09/14/2014 See scanned documents - status post EGD W/O [facility] SPEC VARICIES INJ N/A 03/31/2025 [facility] - Friend ESOPHAGOGASTRODUODENOSCOPY TRANSORAL DIAGNOSTIC 06/27/2016 EGD ESOPHAGOGASTRODUODENOSCOPY TRANSORAL [...] on File Prior to Visit Medication Sig HYDROcodone-Acetaminophen (NORCO) 10-325 mg per tablet Take 1 tablet by mouth every 8 hours as needed. methylPREDNISolone (MEDROL DOSE-PACK) 4 mg Dose-Pack Take by mouth once daily. QUEtiapine (SEROQUEL) 50 mg tablet Take 1 [...] tablet by mouth two times a day. celecoxib (CELEBREX) 200 mg capsule Take 1 capsule by mouth once daily. amLODIPine (NORVASC) 2.5 mg tablet Take 1 [...] on file prior to visit. Social History SOCIAL HISTORY[1] Review of Symptoms REVIEW OF SYSTEMS Musculoskeletal: (+) bilateral buttock pain worse on right Neurological: (+) intermittent lower extremity tingling Psychiatric: (+) anxiety SEE HPI EXAM: BP 130/70 Pulse 81 Resp 14 Ht 142.2 cm (4' 8) Wt 41.8 kg (92 lb 3.2 oz) LMP 03/23/2007 SpO2 95% BMI 20.67 kg/m General Appearance: Well appearing, alert, in no acute distress, well-hydrated, well nourished.. Musculoskeletal: no pain to palp of spine. SLR negative. NVI. Decreased ROM due to pain with flexion. Health Maintenance List Influenza Vaccine(1) due on 05/03/2025 Mammogram Screening due on 07/01/2025 Depression Screening due on 10/01/2025 Annual PCP [...] Vaccine: 50+ Completed Cervical Cancer Screening Discontinued Data reviewed Imaging: (2014) MRI Lumbar Spine: Moderate to severe foraminal stenosis, no spinal canal stenosis. Tests: Nerve Conduction Study: Neuropathy identified, primarily affecting the front of the legs. Assessment and Plan 1. Lumbar radiculopathy (M54.16) 2. Lumbar back pain (M54.50) 3. Radiculopathy of lumbar region (M54.16) - Chronic bilateral lumbar radiculopathy with worsening pain over several years; pain refractory to prednisone and hydrocodone. - Prior MRI from 2014 showed moderate to severe foraminal stenosis without spinal canal stenosis. - Order MRI of lumbar spine to assess for changes in stenosis or nerve impingement. - Discussed potential for EMG/NCS to further localize nerve involvement if MRI is inconclusive. - Patient has injection scheduled with pain management; advised to proceed with MRI prior to injection if possible. - Discussed prior adverse event with spinal injection and addressed concerns about recurrence. - Educated patient on rationale for updated imaging and potential next steps based on results. Shanita Green PA-C Recording using [employer] software for draft documentation of the visit was discussed with the patient/authorized phone representative; all questions welcomed and answered. Patient/authorized phone representative agreed to proceed [1] Social History Tobacco Use Smoking status: Former Current packs/day: 0.00 Average packs/day: 1.5 packs/day for 15.0 years (22.5 ttl pk-yrs) Types: Cigarettes Start date: 07/31/1990 Quit date: 07/31/2005 Years since quittin.7 Smokeless tobacco: Never Vaping Use Vaping status: Never Used Substance Use Topics Alcohol use: Yes Alcohol/week: 10.0 - 15.0 standard drinks of alcohol Types: 10 - 15 Cans of Beer (12oz) per week Comment: 5-8 beers daily Drug use: No documented in this encounter [facility] 04-05-2025 Telephone encounter Note Noted. Shanita Green PA-C [facility] 04-05-2025 Miscellaneous Notes Noted. Shanita Green PA-C Patient calls with update since changing medication to help her sleep. She reports that she is currently taking the doxepin 6 mg at bedtime and her sleep is worse than when she was taking the quetiapine. Patient reports that she wants to go back on the quetiapine when she is complete with current prescription of doxepin (she has maybe a weeks worth left). Patient reports that she is also taking the melatonin 10 mg at bedtime and Trazodone 150 mg at bedtime. Pharmacy is [facility]. Please review and adviseMaliha RN documented in this encounter [facility] 04-05-2025 Telephone encounter Note Patient calls with update since changing medication to help her sleep. She reports that she is currently taking the doxepin 6 mg at bedtime and her sleep is worse than when she was taking the quetiapine. Patient reports that she wants to go back on the quetiapine when she is complete with current prescription of doxepin (she has maybe a weeks worth left). Patient reports that she is also taking the melatonin 10 mg at bedtime and Trazodone 150 mg at bedtime. Pharmacy is [facility]. Please review and advise, Maliha Fregoso RN [facility] 03-31-2025 Note HNO ID: [id number] Author: GERALD JOHN MA Service: ? Author Type: Pet Sitting Type: Progress Notes Filed: 03/31/2025 12:47 Note Text: Dr. Jairo GREEN note, Colonoscopy, EGD reports, and Physician letter. Surgical Hx updated. Scan on 03/31/2025 7:23 AM by Jenna Garcias PA-C: Dr. Gill Scan on 03/31/2025 9:15 AM by Jenna Garcias PA-C: [facility] Physician Letter - GI Scan on 03/31/2025 9:13 AM by Jenna Garcias PA-C: EGD Scan on 03/31/2025 9:15 AM by Jenna Garcias PA-C: Colonoscopy [facility] 03-31-2025 History of Presen t illness Narrative Dr. Friend OV note, Colonoscopy, EGD reports, and Physician letter. Surgical Hx updated. Scan on 03/31/2025 7:23 AM by ProviderJenna PA-C: Dr. Gill Scan on 03/31/2025 9:15 AM by ProviderJenna PA-C: [facility] Physician Letter - GI Scan on 03/31/2025 9:13 AM by Jenna Garcias PA-C: EGD Scan on 03/31/2025 9:15 AM by Jenna Garcias PA-C: Colonoscopy documented in this encounter [facility] 03-31-2025 Consult note [facility] 03-31-2025 Consult note [facility] 03-31-2025 Consult note Note Date/Time March 31, 2025 7:40am [facility] Medical Records Department [address] [place] [address] Pre-Anesthesia Evaluation 03/31/25 0731 MR#: [id number] Acct: [id number] Name: JENA RAMIREZ HUDSON Rep #:[id number] : 1955 70 From: Nina Pimentel CRNA PCP: Dr. Rito Camp MD Status:REG SD Y Race: C Location: [place] [address] ASA Classification* ASA Classification ASA Classification: 3 Assessment & Plan Anesthesia* Anesthesia Assessment Anesthesia Assessment: Discussed sedation and/or anesthesia options, risks, benefits, and alternatives with patient/parents/legal guardian/POA. Questions invited. The patient/parents/legal guardian/POA seems to understand and agrees to proceedwith anesthesia plan. Reviewed the physical assessment, medical history, allergy history and patient home medications list prior to surgery/procedure/anesthetic and documented any changes. Performed airway and anesthesia risk assessments. Anesthesia Type Anesthesia Type: MAC History Source History Obtained from:: Patient and Chart Anesthesia Focused Assessment* Temperature: 97.3 F Pulse Rate: 84 Blood Pressure: 133/84 Respiratory Rate: 16 Pulse Ox: 84 Oxygen Delivery Method: Room Air Airway Assessment Mouth opens: >3 cm Mallampati Score: III Teeth Condition: Lower (permanent partial in place) and Upper Neck Range of motion (ROM): Limited ROM (due to spinal surgery, unable to bend head back and look up well. ) Labs Anesthesia Preop lab: CBC WBC 10.6 K/mm3 (4.4-11.0) 06/02/23 06:25 06/02/23 RBC 4.22 M/mm3 (4.2-5.4) 06/02/23 06:25 06/02/23 Hgb 14.1 g/dL (12.0-15.0) 06/02/23 06:25 06/02/23 Hct 43.4 % (37-47) 06/02/23 06:25 06/02/23 Plt Count 266 K/mm3 (150-450) 06/02/23 06:25 06/02/23 CHEMISTRY Potassium 3.6 mmol/L (3.5-5.1) 06/02/23 06:25 06/02/23 Sodium 142 mmol/L (136-145) 06/02/23 06:25 06/02/23 Magnesium 2.2 mg/dL (1.6-2.6) 03/17/22 18:03 03/17/22 Phosphorus 2.9 mg/dL (2.5-4.9) 03/17/22 18:03 03/17/22 BUN 16 mg/dL (7-18) 06/02/23 06:25 06/02/23 Creatinine 0.58 mg/dL (0.55-1.02) 06/02/23 06:25 06/02/23 Glucose 74 mg/dL (74-106) 06/02/23 06:25 06/02/23 TSH 1.19 uIU/mL (0.358-3.74) 02/28/21 18:20 COAG Pre-Assessment Diagnosis/Proposed Procedure Planned Operative Procedure(s): EGD, COLONOSCOPY Anesthesia History 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 When Was Last Pacemaker Check QUESTION #4 FULL TEXT: You/Your Family Experience fever (hyperthermia) with Anesthesia Any additional information?: No Last Oral Intake Last Oral intake: Last Oral Intake NPO since 17:00 03/31/25 07:10 Meds taken in AM with sips of water? 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 Female Yes 03/25/25 16:02 HX of Motion Sickness No 03/25/25 16:02 HX of N/V After Surgery No 03/25/25 16:02 Non-Smoker Yes 03/25/25 16:02 Duration of Surgery greater No 03/25/25 16:02 than 60 minutes Number of Risk Factors 2 03/25/25 16:02 PONV Score Moderate Risk 03/25/25 16:02 Any additional information?: No Height & Weight Height & Weight: Anesthesia: Height & Weight Height 4 ft 9 in 03/31/25 07:10 Weight: 40.823 kg 03/31/25 07:10 Body Mass Index (BMI) 19.5 03/31/25 07:10 Respiratory Assessment Respiratory 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 Hx Respiratory Tract Infection No 03/25/25 16:02 Any additional information?: No STOP Sleep Apnea STOP Sleep Apnea - 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: STOP Sleep Apnea - 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 Hx Hypertension Yes: PER PT, CONTROLLED ON [...] 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 Tobacco Use Smoking Status Former smoker 03/25/25 16:02 Hx Tobacco Use No 03/25/25 16:02 Years Smoking Packs Smoked per Day Smoking Cessation Date was Yes - quit smoking within 15 03/25/25 16:02 within the last 15 years years Hx Smoking Cessation Date 02/24/16 03/25/25 16:02 Hx Smoking Cessation No 03/25/25 16:02 Counseling Any additional information?: No Hematologic Medial History Hematologic Hx - 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 Specify any problems Hx of Preganancy in last 3 No 03/25/25 16:02 Months Nurse Filling Out Transfusion MGRIFFITH 03/25/25 16:02 & Questions: Date: 03/25/25 03/25/25 16:02 Time: 16:04 03/25/25 16:02 Patient unable to answer at this time (ie. 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 Hx Now No 03/25/25 16:02 Gestational Age (in weeks): EDC: Hx Hx Para Hx Section SAB No 03/25/25 16:02 Any additional information?: No Active Medications Active Medications: Current Medications Generic Name Dose Route Start Last Admin Trade Name Freq PRN Reason Stop Dose Admin Lactated Ringer's 1,000 mls @ 15 mls/hr 03/31/25 07:00 03/31/25 07:19 IV 15 mls/hr .Q48H JUAN Administration PFSH Medical History Alcohol use Easy bruising Gastric reflux History [...] Arnold-Chiari deformity COPD, moderate Alcohol abuse Osteoporosis Home Medications ?Medication ?Instructions ?Recorded ?Last Taken ?Type melatonin 10 mg sublingual tablet 10 mg PO QHS sleepin g pill 05/20/18 03/16/22 21:00 History ascorbic acid (vitamin C) 500 mg 1,000 mg PO DAILY sup plement 06/26/18 03/16/22 09:00 History tablet,extended release biotin 5,000 mcg sublingual tablet 5,000 mcg sublingua l DAILY 02/23/21 03/16/22 09:00 History supplement cyanocobalamin (vitamin B-12) 2,500 mcg PO DAILY suppl ement 04/27/21 03/16/22 09:00 History 2,500 mcg tablet acyclovir 400 mg tablet 400 mg PO BID female issue 0 04/16/22 Unknown History calcium carbonate (Calcium 600) 600 mg PO DAILY bones 06/01/23 Unknown History amlodipine 2.5 mg tablet (Norvasc) 2.5 mg PO DAILY Blo od pressure 01/01/24 0 03/31/25 History trazodone 150 mg tablet 150 mg PO QHS 07/21/24 Unkno wn History montelukast 10 mg tablet 10 mg PO QPM breathing #90 t abs 10/19/24 Unknown Rx omeprazole 40 mg capsule,delayed 40 mg PO DAILY acid r eflux #90 caps 12/17/24 03/31/25 Rx release ondansetron HCl 4 mg tablet 4 mg PO .COMPLEX #5 tabs 0 12/17/24 Unknown Rx peg 3350-electrolytes 236 240 ml PO Q10M #4,000 mL Unknown Rx gram-22.74 gram-6.74 gram-5.86 gram solution (Golytely) albuterol sulfate 90 mcg/actuation 2 puff inhalation Q 6H PRN 02/09/25 Unknown Rx aerosol inhaler (ProAir HFA) shortness of breath or wh eezing #3 ea alendronate 70 mg tablet 70 mg PO QWEEK 02/09/25 Unkn own History quetiapine 50 mg tablet 50 mg PO QHS 02/09/25 Unknow n History budesonide-formoterol HFA 160 2 inh inhalation BID Unknown History mcg-4.5 mcg/actuation aerosol inhaler (Breyna) Allergy/AdvReac Type Severity Reaction Status Date / Time Fish Containing Products Allergy Severe Angioedema Verified 03/31/25 07:09 shellfish derived Allergy Severe Angioedema Verified 03/31/25 07:09 Horse/Equine Containing Allergy Unknown NEEDS Verified 03/31/25 07:09 Products FOLLOW-UP lisinopril Allergy Unknown Unknown Verified 03/31/25 07:09 Family History Father Hypertension Aortic aneurysm Cancer skin and bladder Colon cancer Mother Brain aneurysm Depression Surgical History H/O Spinal surgery H/O eye [...] of physical activity do you participate in: walking and other details: rosario [place] Information Additional Findings: Recently had aortic aneurysm checked, per patient it is stable and 3.5cm. Drinks BEER daily 5-6 per day. Review of Systems (Anesthesia) ROS Narrative System reviewed and no additional complaints, except as documented. 03/31/25 0740 <Electronically signed by Nina vines CRNA> Date _ Nina Pimentel CRNA Cosigner Signature: Date CC: ~ Signed [facility] Work Phone: [phone] 718-567707-30-2025 History and physical note Author Robe Gill [facility] Note Date/Time March 31, 2025 7:20 am [facility] Medical Records Department [address] [place] [address] History & Physical Exam 03/31/2518 MR#: [id number] Acct: [id number] Name: JENA RAMIREZ Rep #:[id number] : 1955 70 From: Robe Gill DO PCP: Dr. Rito Camp MD Status:[facility] Location: [place] [address] HPI - General General Date of Admission: 03/31/25 Date of Service: 03/31/25 Chief Complaint: Dysphagia need for screening colonoscopy HPI Narrative JENA RAMIREZ, is a 70 F who presents with the Chief Complaint: dysphagia choke very easily - does not have to be eating - reports she can choke on salivia - couple episodes of dysphagia, FBO, vomiting, seen ED 2-3x for FB removal - she does not remember when these episodes of FBO were - lower esophageal dysphagia, jumps up and down and beats on her chest to release food - upper denture - not chewing food well - cough up small food particlies at times - denies any N/V - denies any HB - denies any change in bowel habits - PMH of COPD and Asthma MBS 11/24/2024 Mild pharyngeal deficits, including... -Delayed swallow onset. -Consistent, trace laryngeal penetration of liquids w/ complete ejection. No aspiration observed. Esophageal deficits... -Retention of pudding in middle and lower esophagus, which fully cleared w/ thinliquid wash. -Small CP bar at the level of C5-C6, which did not impact bolus clearance through the UES. EGD 06/30/2018 ([facility]) - negative for Mcpherson's and H. pylori The examined jejunum was normal. The examined duodenum was normal. Scattered moderate inflammation characterized by erosions, erythema, friability, granularity and shallow ulcerations was found in the gastric antrum. A small hiatal hernia was present. Non-severe esophagitis with no bleeding was found. Biopsies were taken with a cold forceps for histology. The middle third of the esophagus was normal. Biopsies were taken with a cold forceps for histology. EGD 03/17/2017 ([facility]) 2 large food boluses were located in the distal esophagus. I inserted a tri-tip grasper to grasp the food bolus but while I was grasping the food bolus the insufflation from the EGD pushed the food boluses into the stomach. I advanced the scope into the stomach and duodenum and there were no other obstructions noted. - 5 beers a day - former smoker - 1.5c of coffee daily - denies any NSAIDS - she has been on Omeprazole for along time - Father with colon CA - she reports a personal h/o bowel obstruction - uncertain when these 2 epsiodeswere - reports it has been 10 years since her last colonoscopy [facility] Medical History Alcohol use Easy bruising Gastric reflux History [...] Arnold-Chiari deformity COPD, moderate Alcohol abuse Osteoporosis Home Medications ?Medication ?Instructions ?Recorded ?Last Taken ?Type melatonin 10 mg sublingual tablet 10 mg PO QHS sleepin g pill 05/20/18 03/16/22 21:00 History ascorbic acid (vitamin C) 500 mg 1,000 mg PO DAILY sup plement 06/26/18 03/16/22 09:00 History tablet,extended release biotin 5,000 mcg sublingual tablet 5,000 mcg sublingua l DAILY 02/23/21 03/16/22 09:00 History supplement cyanocobalamin (vitamin B-12) 2,500 mcg PO DAILY suppl ement 04/27/21 03/16/22 09:00 History 2,500 mcg tablet acyclovir 400 mg tablet 400 mg PO BID female issue 0 04/16/22 Unknown History calcium carbonate (Calcium 600) 600 mg PO DAILY bones 06/01/23 Unknown History amlodipine 2.5 mg tablet (Norvasc) 2.5 mg PO DAILY Blo od pressure 01/01/24 03/31/25 History trazodone 150 mg tablet 150 mg PO QHS 07/21/24 Unkno wn History montelukast 10 mg tablet 10 mg PO QPM breathing #90 t abs 10/19/24 Unknown Rx omeprazole 40 mg capsule,delayed 40 mg PO DAILY acid r eflux #90 caps 12/17/24 03/31/25 Rx release ondansetron HCl 4 mg tablet 4 mg PO .COMPLEX #5 tabs 0 12/17/24 Unknown Rx peg 3350-electrolytes 236 240 ml PO Q10M #4,000 mL Unknown Rx gram-22.74 gram-6.74 gram-5.86 gram solution (Golytely) albuterol sulfate 90 mcg/actuation 2 puff inhalation Q 6H PRN 02/09/25 Unknown Rx aerosol inhaler (ProAir HFA) shortness of breath or wh eezing #3 ea alendronate 70 mg tablet 70 mg PO QWEEK 02/09/25 Unkn own History quetiapine 50 mg tablet 50 mg PO QHS 02/09/25 Unknow n History budesonide-formoterol HFA 160 2 inh inhalation BID Unknown History mcg-4.5 mcg/actuation aerosol inhaler (Breyna) Allergy/AdvReac Type Severity Reaction Status Date / Time Fish Containing Products Allergy Severe Angioedema Verified 03/31/25 07:09 shellfish derived Allergy Severe Angioedema Verified 03/31/25 07:09 Horse/Equine Containing Allergy Unknown NEEDS Verified 03/31/25 07:09 Products FOLLOW-UP lisinopril Allergy Unknown Unknown Verified 03/31/25 07:09 Family History Father Hypertension Aortic aneurysm Cancer skin and bladder Colon cancer Mother Brain aneurysm Depression Surgical History H/O Spinal surgery H/O eye [...] of physical activity do you participate in: walking and 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 ROS Constitutional Constitutional: Denies fatigue, fever(s), poor appetite, weight gain or weight loss Gastrointestinal Gastrointestinal: Denies belching, bloating, change in bowel habits, change in stool character, chewing difficulty, coffee ground emesis, constipation, cramping, diarrhea, dyspepsia, dysphagia, early satiety, excessive flatus, fecalincontinence, heartburn, hematemesis, hematochezia, hemorrhoids, loose stools, melena, nausea, odynophagia, rectal bleeding, tenesmus, vomiting or weight changes Vital Signs Vital Signs Vital Signs: 03/31/25 07:10 03/31/25 07:10 Temperature 97.3 F L Temperature Source Temporal Pulse Rate 84 Respiratory Rate 16 Respiratory Pattern Normal Blood Pressure 133/84 H Blood Pressure Mean 100 Blood Pressure Source Monitor Blood Pressure Position Semi-Fowlers Blood Pressure Location Left Arm Pulse Ox 84 Oxygen Delivery Method Room Air Weight Weight: 90 lb Body Mass Index (BMI) 19.5 Physical Exam Const alert, oriented x3, no apparent distress and healthy appearing General Appearance: cooperative GI normal to inspection, nondistended, normoactive bowel sounds, soft to palpation,non-tender and non-distended Percussion: normal to percussion Rectal Exam: deferred Assessment & Plan Assessment/Plan (1) Encounter for screening colonoscopy: (2) Dysphagia: (3) Family history of colon cancer in father: PLAN: Thought Process: normal Assessment and Plan Assessment and Plan (1) Dysphagia: Status: Acute (2) Encounter for screening colonoscopy: Status: Acute (3) Family history of colon cancer in father: Status: Acute Medications: New peg 3350-sod sulf,[id number] 178.7-7.3-0.5 gram (Suflave) take as directed for split dose bowel prep 2 mL 0RF ondansetron HCl 4 mg orally; take two tablets PO two hours prior to start of bowel prep and one every 4 hours as needed for N/V 5 tabs 0RF omeprazole 40 mg PO DAILY 90 caps 1RF acid reflux Plan 69y/o female presents for initial consultation with complaints of lower esophageal dysphagia without reflux and history of FBO x2. Biopsies were negative for Mcpherson's and H. pylori in 2018. MBS completed 11/24/2024 revealed retention of pudding in middle and lower esophagus, which fully cleared w/ thin liquid wash. She complains of frequent choking on saliva, liquids and solids as well. She denies any HB, N/V, or weight loss. Family history is significant for father with colon cancer. I have scheduled her for an EGD and screening colonoscopy. She will continue Omeprazole 40mg daily and follow-up in the officepost procedure. Patient Instructions: EGD & Colon - SuFlave Continue Omeprazole 40mg daily Follow-up post procedure 03/31/25 0720 <Electronically signed by Robe Gill DO> Cosigner Signature (if applicable): CC: Dr. Rito Camp MD; Robe Gill DO~ Signed [facility] Work Phone: [phone]) 261-842307-30-2025 Procedure note [facility] Medical Records Department [address] [place] [address] Colonoscopy Report MR#: [id number] Acct: [id number] Name: JENA RAMIREZ Rep #:[id number] : 1955 70 From: Robe Gill DO PCP: Dr. Rito Camp MD Status:[facility] Patient Name: Jena Ramirez Procedure Date: 03/31/2025 8:29 AM Date of : 1955 Age: 70 Procedure: Colonoscopy Indications: Screening for colorectal malignant neoplasm Providers: Robe Gill DO Referring MD: Rito Camp MD Medicines: Monitored Anesthesia Care Patient Profile: This is a 70 year old female. Refer to note in patient chart for documentation of history and physical. Patient has symptoms of dysphagia with solids. Last Colonoscopy: several years ago. Complications: No immediate complications. Procedure: Pre-Anesthesia Assessment: - Prior to the procedure, a History and Physical was performed, and patient medications and allergies were reviewed. The patient is competent. The risks and benefits of the procedure and the sedation options and risks were discussed with the patient. All questions were answered and informed consent was obtained. Patient identification and proposed procedure were verified by the physician in the pre-procedure area. Mental Status Examination: alert and oriented. Airway Examination: normal oropharyngeal airway and neck mobility. Respiratory Examination: clear to auscultation. CV Examination: normal. Prophylactic Antibiotics: The patient does not require prophylactic antibiotics. Prior Anticoagulants: The patient has taken no anticoagulant or antiplatelet agents except for NSAID medication. ASA Grade Assessment: II - A patient with mild systemic disease. After reviewing the risks and benefits, the patient was deemed in satisfactory condition to undergo the procedure. The anesthesia plan was to use monitored anesthesia care (MAC). Immediately prior to administration of medications, the patient was re-assessed for adequacy to receive sedatives. The heart rate, respiratory rate, oxygen saturations, blood pressure, adequacy of pulmonary ventilation, and response to care were monitored throughout the procedure. The physical status of the patient was re-assessed after the procedure. After I obtained informed consent, the scope was passed under direct vision. Throughout the procedure, the patient's blood pressure, pulse, and oxygen saturations were monitored continuously. The colonoscope was introduced through the anus and advanced to the cecum, identified by appendiceal orifice and ileocecal valve. The colonoscopy was performed without difficulty. The patient tolerated the procedure well. The quality of the bowel preparation was adequate. The ileocecal valve, appendiceal orifice, and rectum were photographed. Scope In: 8:32:43 AM Scope Withdrawal Time 0 hours 10 minutes 23 seconds Scope Out: 8:49:36 AM Total Procedure Duration Time 0 hours 16 minutes 53 seconds Findings: The perianal and digital rectal examinations were normal. Multiple small and large-mouthed diverticula were found in the recto-sigmoid colon and sigmoid colon. Two sessile polyps were found in the transverse colon and hepatic flexure. The polyps were 7 mm in size. These polyps were removed with a cold biopsy forceps. Resection and retrieval were complete. Verification of patient identification for the specimen was done. Estimated blood loss was minimal. The exam was otherwise without abnormality on direct and retroflexion views. Mild rectal prolapse was present. Impression: - Diverticulosis in the recto-sigmoid colon and in the sigmoid colon. - Two 7 mm polyps in the transverse colon and at the hepatic flexure, removed with a cold biopsy forceps. Resected and retrieved. - The examination was otherwise normal on direct and retroflexion views. - Rectal prolapse. Recommendation: - Discharge patient to home. - Resume previous diet. - Continue present medications. - Await pathology results. - Repeat colonoscopy in 5 years for surveillance. Procedure Code(s): --- Professional --- 95957, Colonoscopy, flexible; with biopsy, single or multiple CPT copyright 2021 [employer]. All rights reserved. The codes documented in this report are preliminary and upon data acquisition technician review may be revised to meet current compliance requirements. Robe Gill DO 03/31/2025 9:09:10 AM This report has been signed electronically. Number of Addenda: 0 Note Initiated On: 03/31/2025 8:29 AM 03/31/25908 Date _ Robe Gill DO Cosigner Signature: Date (if indicated) CC: Dr. Rito Camp MD; Robe Gill DO ~ Date Dictated: 03/31/25828 Date Transcribed: Curator Of Manuscripts: RF Signed [facility]07-30-2025 Procedure note [facility] Medical Records Department [address] [place] [address] Provation Physician Letter MR#: [id number] Acct: [id number] Name: JENA RAMIREZ HUDSON Rep #:[id number] : 1955 70 From: Robe Gill DO PCP: Dr. Rito Camp MD Status:[facility] 03/31/2025 Rito Camp MD Re : Colonoscopy procedure for Jena Ramirez Dear Dr. Camp This procedure was performed on Monday, March 31, 2025. My impressions and recommendations are as follows: Impressions : - Diverticulosis in the recto-sigmoid colon and in the sigmoid colon. - Two 7 mm polyps in the transverse colon and at the hepatic flexure, removed with a cold biopsy forceps. Resected and retrieved. - The examination was otherwise normal on direct and retroflexion views. - Rectal prolapse. Recommendations : - Discharge patient to home. - Resume previous diet. - Continue present medications. - Await pathology results. - Repeat colonoscopy in 5 years for surveillance. My findings are described in the full procedure note, which is enclosed. If I can be of further assistance, please feel free to contact me at . Sincerely, Robe Gill DO 03/31/2025 9:09:10 AM This report has been signed electronically. 03/31/25908 Date _ Robe Gill DO Cosigner Signature: Date (if indicated) CC: Dr. Rito Camp MD; Robe Gill DO ~ Date Dictated: 03/31/25828 Date Transcribed: Curator Of Manuscripts: RF Signed [facility]07-30-2025 Procedure note [facility] Medical Records Department [address] [place] [address] EGD Report MR#: [id number] Acct: [id number] Name: JENA RAMIREZ Rep #:[id number] : 1955 70 From: Robe Gill DO PCP: Dr. Rito Camp MD Status:[facility] Patient Name: Jena Ramirez Procedure Date: 03/31/2025 8:11 AM Date of : 1955 Age: 70 Procedure: Upper GI endoscopy Indications: Dysphagia Providers: Robe Gill DO Referring MD: Rito Camp MD Medicines: Monitored Anesthesia Care Patient Profile: This is a 70 year old female. Refer to note in patient chart for documentation of history and physical. Patient has symptoms of dysphagia with solids. Complications: No immediate complications. Procedure: Pre-Anesthesia Assessment: - Prior to the procedure, a History and Physical was performed, and patient medications and allergies were reviewed. The patient is competent. The risks and benefits of the procedure and the sedation options and risks were discussed with the patient. All questions were answered and informed consent was obtained. Patient identification and proposed procedure were verified by the physician in the pre-procedure area. Mental Status Examination: alert and oriented. Airway Examination: normal oropharyngeal airway and neck mobility. Respiratory Examination: clear to auscultation. CV Examination: normal. Prophylactic Antibiotics: The patient does not require prophylactic antibiotics. Prior Anticoagulants: The patient has taken no anticoagulant or antiplatelet agents except for NSAID medication. ASA Grade Assessment: II - A patient with mild systemic disease. After reviewing the risks and benefits, the patient was deemed in satisfactory condition to undergo the procedure. The anesthesia plan was to use monitored anesthesia care (MAC). Immediately prior to administration of medications, the patient was re-assessed for adequacy to receive sedatives. The heart rate, respiratory rate, oxygen saturations, blood pressure, adequacy of pulmonary ventilation, and response to care were monitored throughout the procedure. The physical status of the patient was re-assessed after the procedure. After obtaining informed consent, the endoscope was passed under direct vision. Throughout the procedure, the patient's blood pressure, pulse, and oxygen saturations were monitored continuously. The colonoscope was introduced through the mouth, and advanced to the second part of duodenum. The upper GI endoscopy was accomplished without difficulty. The patient tolerated the procedure well. Scope In: 8:21:44 AM Scope Out: 8:29:00 AM Total Procedure Duration Time 0 hours 7 minutes 16 seconds Findings: LA Grade A (one or more mucosal breaks less than 5 mm, not extending between tops of 2 mucosal folds) esophagitis with no bleeding was found 37 to 39 cm from the incisors. Biopsies were taken with a cold forceps for histology. Verification of patient identification for the specimen was done. Estimated blood loss was minimal. A moderate Schatzki ring was found at the gastroesophageal junction. A guidewire was placed and the scope was withdrawn. Dilation was performed with a Savary dilator with no resistance at 57 Fr. The dilation site was examined and showed moderate improvement in luminal narrowing. A small hiatal hernia was present. No gross lesions were noted in the entire examined stomach. No gross lesions were noted in the entire examined duodenum. Patchy mildly erythematous mucosa without bleeding was found in the gastric body. Biopsies were taken with a cold forceps for histology. Verification of patient identification for the specimen was done. Estimated blood loss was minimal. Biopsies were taken with a cold forceps for Helicobacter pylori testing. Verification of patient identification for the specimen was done. Estimated blood loss was minimal. Impression: - LA Grade A reflux esophagitis with no bleeding. Biopsied. - Moderate Schatzki ring. Dilated. - Small hiatal hernia. - No gross lesions in the entire stomach. - No gross lesions in the entire examined duodenum. Recommendation: - Discharge patient to home. - Resume previous diet. - Continue present medications. - Await pathology results. Procedure Code(s): --- Professional --- 69512, Esophagogastroduodenoscopy, flexible, transoral; with insertion of guide wire followed by passage of dilator(s) through esophagus over guide wire 05748, 59,51, Esophagogastroduodenoscopy, flexible, transoral; with biopsy, single or multiple CPT copyright 2021 [employer]. All rights reserved. The codes documented in this report are preliminary and upon data acquisition technician review may be revised to meet current compliance requirements. Robe Gill DO 03/31/2025 9:07:01 AM This report has been signed electronically. Number of Addenda: 0 Note Initiated On: 03/31/2025 8:11 AM 03/31/2507 Date _ Robe Gill DO Cosigner Signature: Date (if indicated) CC: Dr. Rito Camp MD; Robe Gill DO ~ Date Dictated: 03/31/25 0811 Date Transcribed: Curator Of Manuscripts: RF Signed [facility]07-30-2025 Procedure note [facility] Medical Records Department [address] [place] [address] Provation Physician Letter MR#: [id number] Acct: [id number] Name: JENA RAMIREZ Rep #:[id number] : 1955 70 From: Robe Gill DO PCP: Dr. Rito Camp MD Status:[facility] 03/31/2025 Rito Camp MD Re : Upper GI endoscopy procedure for Jena Ramirez Dear Dr. Camp This procedure was performed on Monday, March 31, 2025. My impressions and recommendations are as follows: Impressions : - LA Grade A reflux esophagitis with no bleeding. Biopsied. - Moderate Schatzki ring. Dilated. - Small hiatal hernia. - No gross lesions in the entire stomach. - No gross lesions in the entire examined duodenum. Recommendations : - Discharge patient to home. - Resume previous diet. - Continue present medications. - Await pathology results. My findings are described in the full procedure note, which is enclosed. If I can be of further assistance, please feel free to contact me at . Sincerely, Robe Gill DO 03/31/2025 9:07:01 AM This report has been signed electronically. 03/31/25906 Date _ Robe Ribeiroigner Signature: Date (if indicated) CC: Dr. Rito Camp MD; Robe Gill DO ~ Date Dictated: 03/31/25 0811 Date Transcribed: Curator Of Manuscripts: RF Signed [facility]07-30-2025 Consult note [facility] Medical Records Department [address] [place] [address] Anesthesia Postop Eval I 03/31/25 0900 MR#: [id number] Acct: [id number] Name: JENA RAMIREZ HUDSON Rep #:[id number] : 1955 70 From: Filipe Rahman PCP: Dr. Rito Camp MD Status:REG [facility] Y Race: C Location: [place] [address] Anesthesia: Postop Eval I Current Vital Signs Temperature: 98 F Pulse Rate: 86 Blood Pressure: 122/77 Respiratory Rate: 16 Pulse Ox: 98 Oxygen Delivery Method: Room Air Assessment Airway patent: Yes Spontaneous unlabored respirations: Yes Mental status: Awake and Calm nausea: No Vomiting: No Anesthesia Complication: No Fluid Hydration Crystalloid volume administer (ml): 700 Total IV fluid infused: 700 Progress Note Anesthesia document: Postop Eval 1 completed: Yes 03/31/25 0902 > Date _ Filipe Mello Signature: Date CC: ~ Signed [facility]07-30-2025 Consult note [facility] Medical Records Department [address] [place] [address] Pre-Anesthesia Evaluation 03/31/25730 MR#: [id number] Acct: [id number] Name: JENA RAMIREZ HUDSON Rep #:[id number] : 1955 70 From: Nina Pimentel CRNA PCP: Dr. Rito Camp MD Status:REG [facility] Y Race: C Location: [place] [address] ASA Classification* ASA Classification ASA Classification: 3 Assessment & Plan Anesthesia* Anesthesia Assessment Anesthesia Assessment: Discussed sedation and/or anesthesia options, risks, benefits, and alternatives with patient/parents/legal guardian/POA. Questions invited. The patient/parents/legal guardian/POA seems to understand and agrees to proceedwith anesthesia plan. Reviewed the physical assessment, medical history, allergy history and patient home medications list prior to surgery/procedure/anesthetic and documented any changes. Performed airway and anesthesia risk assessments. Anesthesia Type Anesthesia Type: MAC History Source History Obtained from:: Patient and Chart Anesthesia Focused Assessment* Temperature: 97.3 F Pulse Rate: 84 Blood Pressure: 133/84 Respiratory Rate: 16 Pulse Ox: 84 Oxygen Delivery Method: Room Air Airway Assessment Mouth opens: >3 cm Mallampati Score: III Teeth Condition: Lower (permanent partial in place) and Upper Neck Range of motion (ROM): Limited ROM (due to spinal surgery, unable to bend head back and look up well. ) Labs Anesthesia Preop lab: CBC WBC 10.6 K/mm3 (4.4-11.0) 06/02/23 06:25 06/02/23 RBC 4.22 M/mm3 (4.2-5.4) 06/02/23 06:25 06/02/23 Hgb 14.1 g/dL (12.0-15.0) 06/02/23 06:25 06/02/23 Hct 43.4 % (37-47) 06/02/23 06:25 06/02/23 Plt Count 266 K/mm3 (150-450) 06/02/23 06:25 06/02/23 CHEMISTRY Potassium 3.6 mmol/L (3.5-5.1) 06/02/23 06:25 06/02/23 Sodium 142 mmol/L (136-145) 06/02/23 06:25 06/02/23 Magnesium 2.2 mg/dL (1.6-2.6) 03/17/22 18:03 03/17/22 Phosphorus 2.9 mg/dL (2.5-4.9) 03/17/22 18:03 03/17/22 BUN 16 mg/dL (7-18) 06/02/23 06:25 06/02/23 Creatinine 0.58 mg/dL (0.55-1.02) 06/02/23 06:25 06/02/23 Glucose 74 mg/dL (74-106) 06/02/23 06:25 06/02/23 TSH 1.19 uIU/mL (0.358-3.74) 02/28/21 18:20 COAG Pre-Assessment Diagnosis/Proposed Procedure Planned Operative Procedure(s): EGD, COLONOSCOPY Anesthesia History 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 When Was Last Pacemaker Check QUESTION #4 FULL TEXT: You/Your Family Experience fever (hyperthermia) with Anesthesia Any additional information?: No Last Oral Intake Last Oral intake: Last Oral Intake NPO since 17:00 03/31/25 07:10 Meds taken in AM with sips of water? 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 Female Yes 03/25/25 16:02 HX of Motion Sickness No 03/25/25 16:02 HX of N/V After Surgery No 03/25/25 16:02 Non-Smoker Yes 03/25/25 16:02 Duration of Surgery greater No 03/25/25 16:02 than 60 minutes Number of Risk Factors 2 03/25/25 16:02 PONV Score Moderate Risk 03/25/25 16:02 Any additional information?: No Height & Weight Height & Weight: Anesthesia: Height & Weight Height 4 ft 9 in 03/31/25 07:10 Weight: 40.823 kg 03/31/25 07:10 Body Mass Index (BMI) 19.5 03/31/25 07:10 Respiratory Assessment Respiratory 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 Hx Respiratory Tract Infection No 03/25/25 16:02 Any additional information?: No STOP Sleep Apnea STOP Sleep Apnea - 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: STOP Sleep Apnea - 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 Hx Hypertension Yes: PER PT, CONTROLLED ON [...] than talking or can be heard through closeddoors)? 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 Specify any problems Hx of Preganancy in last 3 No 03/25/25 16:02 Months Nurse Filling Out Transfusion MGRIFFITH 03/25/25 16:02 & Questions: Date: 03/25/25 03/25/25 16:02 Time: 16:04 03/25/25 16:02 Patient unable to answer at this time (ie. 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 Hx Now No 03/25/25 16:02 Gestational Age (in weeks): EDC: Hx Hx Para Hx Section SAB No 03/25/25 16:02 Any additional information?: No Active Medications Active Medications: Current Medications Generic Name Dose Route Start Last Admin Trade Name Freq PRN Reason Stop Dose Admin Lactated Ringer's 1,000 mls @ 15 mls/hr 03/31/25 07:00 03/31/25 07:19 IV 15 mls/hr .Q48H JUAN Administration PFSH Medical History Alcohol use Easy bruising Gastric reflux History [...] Arnold-Chiari deformity COPD, moderate Alcohol abuse Osteoporosis Home Medications ?Medication ?Instructions ?Recorded ?Last Taken ?Type melatonin 10 mg sublingual tablet 10 mg PO QHS sleepin g pill 05/20/18 03/16/22 21:00 History ascorbic acid (vitamin C) 500 mg 1,000 mg PO DAILY sup plement 06/26/18 03/16/22 09:00 History tablet,extended release biotin 5,000 mcg sublingual tablet 5,000 mcg sublingua l DAILY 02/23/21 03/16/22 09:00 History supplement cyanocobalamin (vitamin B-12) 2,500 mcg PO DAILY suppl ement 04/27/21 03/16/22 09:00 History 2,500 mcg tablet acyclovir 400 mg tablet 400 mg PO BID female issue 0 04/16/22 Unknown History calcium carbonate (Calcium 600) 600 mg PO DAILY bones 06/01/23 Unknown History amlodipine 2.5 mg tablet (Norvasc) 2.5 mg PO DAILY Blo od pressure 01/01/24 0 03/31/25 History trazodone 150 mg tablet 150 mg PO QHS 07/21/24 Unkno wn History montelukast 10 mg tablet 10 mg PO QPM breathing #90 t abs 10/19/24 Unknown Rx omeprazole 40 mg capsule,delayed 40 mg PO DAILY acid r eflux #90 caps 12/17/24 03/31/25 Rx release ondansetron HCl 4 mg tablet 4 mg PO .COMPLEX #5 tabs 0 12/17/24 Unknown Rx peg 3350-electrolytes 236 240 ml PO Q10M #4,000 mL Unknown Rx gram-22.74 gram-6.74 gram-5.86 gram solution (Golytely) albuterol sulfate 90 mcg/actuation 2 puff inhalation Q 6H PRN 02/09/25 Unknown Rx aerosol inhaler (ProAir HFA) shortness of breath or wh eezing #3 ea alendronate 70 mg tablet 70 mg PO QWEEK 02/09/25 Unkn own History quetiapine 50 mg tablet 50 mg PO QHS 02/09/25 Unknow n History budesonide-formoterol HFA 160 2 inh inhalation BID Unknown History mcg-4.5 mcg/actuation aerosol inhaler (Breyna) Allergy/AdvReac Type Severity Reaction Status Date / Time Fish Containing Products Allergy Severe Angioedema Verified 03/31/25 07:09 shellfish derived Allergy Severe Angioedema Verified 03/31/25 07:09 Horse/Equine Containing Allergy Unknown NEEDS Verified 03/31/25 07:09 Products FOLLOW-UP lisinopril Allergy Unknown Unknown Verified 03/31/25 07:09 Family History Father Hypertension Aortic aneurysm Cancer skin and bladder Colon cancer Mother Brain aneurysm Depression Surgical History H/O Spinal surgery H/O eye [...] of physical activity do you participate in: walking and other details: rosario Sanchezt'l Information Additional Findings: Recently had aortic aneurysm checked, per patient it is stable and 3.5cm. Drinks BEER daily 5-6 per day. Review of Systems (Anesthesia) ROS Narrative System reviewed and no additional complaints, except as documented. 03/31/25 0740 a ASSISTANT PROFESSOR OF LIFE SCIENCES> Date _ Nina Pimentel CRNA Cosigner Signature: Date CC: ~ Signed [facility]07-30-2025 History and physical note [facility] Medical Records Department [address] [place] [address] History & Physical Exam 03/31/25 0718 MR#: [id number] Acct: [id number] Name: JENA RAMIREZ Rep #:[id number] : 1955 70 From: [facility] Friend DO PCP: Dr. Rito Camp MD Status:[facility] Location: [place] [address] HPI - General General Date of Admission: 03/31/25 Date of Service: 03/31/25 Chief Complaint: Dysphagia need for screening colonoscopy HPI Narrative JENA RAMIREZ, is a 70 F who presents with the Chief Complaint: dysphagia choke very easily - does not have to be eating - reports she can choke on salivia - couple episodes of dysphagia, FBO, vomiting, seen ED 2-3x for FB removal - she does not remember when these episodes of FBO were - lower esophageal dysphagia, jumps up and down and beats on her chest to release food - upper denture - not chewing food well - cough up small food particlies at times - denies any N/V - denies any HB - denies any change in bowel habits - PMH of COPD and Asthma MBS 11/24/2024 Mild pharyngeal deficits, including... -Delayed swallow onset. -Consistent, trace laryngeal penetration of liquids w/ complete ejection. No aspiration observed. Esophageal deficits... -Retention of pudding in middle and lower esophagus, which fully cleared w/ thinliquid wash. -Small CP bar at the level of C5-C6, which did not impact bolus clearance through the UES. EGD 06/30/2018 ([facility]) - negative for Mcpherson's and H. pylori The examined jejunum was normal. The examined duodenum was normal. Scattered moderate inflammation characterized by erosions, erythema, friability, granularity and shallow ulcerations was found in the gastric antrum. A small hiatal hernia was present. Non-severe esophagitis with no bleeding was found. Biopsies were taken with a cold forceps for histology. The middle third of the esophagus was normal. Biopsies were taken with a cold forceps for histology. EGD 03/17/2017 ([facility]) 2 large food boluses were located in the distal esophagus. I inserted a tri-tip grasper to grasp the food bolus but while I was grasping the food bolus the insufflation from the EGD pushed the food boluses into the stomach. I advanced the scope into the stomach and duodenum and there were no other obstructions noted. - 5 beers a day - former smoker - 1.5c of coffee daily - denies any NSAIDS - she has been on Omeprazole for along time - Father with colon CA - she reports a personal h/o bowel obstruction - uncertain when these 2 epsiodeswere - reports it has been 10 years since her last colonoscopy [facility] Medical History Alcohol use Easy bruising Gastric reflux History [...] Arnold-Chiari deformity COPD, moderate Alcohol abuse Osteoporosis Home Medications ?Medication ?Instructions ?Recorded ?Last Taken ?Type melatonin 10 mg sublingual tablet 10 mg PO QHS sleepin g pill 05/20/18 03/16/22 21:00 History ascorbic acid (vitamin C) 500 mg 1,000 mg PO DAILY sup plement 06/26/18 03/16/22 09:00 History tablet,extended release biotin 5,000 mcg sublingual tablet 5,000 mcg sublingua l DAILY 02/23/21 03/16/22 09:00 History supplement cyanocobalamin (vitamin B-12) 2,500 mcg PO DAILY suppl ement 04/27/21 03/16/22 09:00 History 2,500 mcg tablet acyclovir 400 mg tablet 400 mg PO BID female issue 0 04/16/22 Unknown History calcium carbonate (Calcium 600) 600 mg PO DAILY bones 06/01/23 Unknown History amlodipine 2.5 mg tablet (Norvasc) 2.5 mg PO DAILY Blo od pressure 01/01/24 03/31/25 History trazodone 150 mg tablet 150 mg PO QHS 07/21/24 Unkno wn History montelukast 10 mg tablet 10 mg PO QPM breathing #90 t abs 10/19/24 Unknown Rx omeprazole 40 mg capsule,delayed 40 mg PO DAILY acid r eflux #90 caps 12/17/24 03/31/25 Rx release ondansetron HCl 4 mg tablet 4 mg PO .COMPLEX #5 tabs 0 12/17/24 Unknown Rx peg 3350-electrolytes 236 240 ml PO Q10M #4,000 mL Unknown Rx gram-22.74 gram-6.74 gram-5.86 gram solution (Golytely) albuterol sulfate 90 mcg/actuation 2 puff inhalation Q 6H PRN 02/09/25 Unknown Rx aerosol inhaler (ProAir HFA) shortness of breath or wh eezing #3 ea alendronate 70 mg tablet 70 mg PO QWEEK 02/09/25 Unkn own History quetiapine 50 mg tablet 50 mg PO QHS 02/09/25 Unknow n History budesonide-formoterol HFA 160 2 inh inhalation BID Unknown History mcg-4.5 mcg/actuation aerosol inhaler (Breyna) Allergy/AdvReac Type Severity Reaction Status Date / Time Fish Containing Products Allergy Severe Angioedema Verified 03/31/25 07:09 shellfish derived Allergy Severe Angioedema Verified 03/31/25 07:09 Horse/Equine Containing Allergy Unknown NEEDS Verified 03/31/25 07:09 Products FOLLOW-UP lisinopril Allergy Unknown Unknown Verified 03/31/25 07:09 Family History Father Hypertension Aortic aneurysm Cancer skin and bladder Colon cancer Mother Brain aneurysm Depression Surgical History H/O Spinal surgery H/O eye [...] of physical activity do you participate in: walking and other details: rosario LIAO Constitutional Constitutional: Denies fatigue, fever(s), poor appetite, weight gain or weight loss Gastrointestinal Gastrointestinal: Denies belching, bloating, change in bowel habits, change in stool character, chewing difficulty, coffee ground emesis, constipation, cramping, diarrhea, dyspepsia, dysphagia, earlysatiety, excessive flatus, fecalincontinence, heartburn, hematemesis, hematochezia, hemorrhoids, loose stools, melena, nausea, odynophagia, rectal bleeding, tenesmus, vomiting or weight changes Vital Signs Vital Signs Vital Signs: 03/31/25 07:10 03/31/25 07:10 Temperature 97.3 F L Temperature Source Temporal Pulse Rate 84 Respiratory Rate 16 Respiratory Pattern Normal Blood Pressure 133/84 H Blood Pressure Mean 100 Blood Pressure Source Monitor Blood Pressure Position Semi-Fowlers Blood Pressure Location Left Arm Pulse Ox 84 Oxygen Delivery Method Room Air Weight Weight: 90 lb Body Mass Index (BMI) 19.5 Physical Exam Const alert, oriented x3, no apparent distress and healthy appearing General Appearance: cooperative GI normal to inspection, nondistended, normoactive bowel sounds, soft to palpation,non-tender and non-distended Percussion: normal to percussion Rectal Exam: deferred Assessment & Plan Assessment/Plan (1) Encounter for screening colonoscopy: (2) Dysphagia: (3) Family history of colon cancer in father: PLAN: Thought Process: normal Assessment and Plan Assessment and Plan (1) Dysphagia: Status: Acute (2) Encounter for screening colonoscopy: Status: Acute (3) Family history of colon cancer in father: Status: Acute Medications: New peg 3350-sod sulf,jeha-zmu-iqn 178.7-7.3-0.5 gram (Suflave) take as directed for split dose bowel prep 2 mL 0RF ondansetron HCl 4 mg orally; take two tablets PO two hours prior to start of bowel prep and one every 4 hours as needed for N/V 5 tabs 0RF omeprazole 40 mg PO DAILY 90 caps 1RF acid reflux Plan 69y/o female presents for initial consultation with complaints of lower esophageal dysphagia without reflux and history of FBO x2. Biopsies were negative for Mcpherson's and H. pylori in 2018. MBS completed 11/24/2024 revealed retention of pudding in middle and lower esophagus, which fully cleared w/ thin liquid wash. She complains of frequent choking on saliva, liquids and solids as well. She denies any HB, N/V, or weight loss. Family history is significant for father with colon cancer. I have scheduled her for an EGD and screening colonoscopy. She will continue Omeprazole 40mg daily and follow-up in the officepost procedure. Patient Instructions: EGD & Colon - SuFlave Continue Omeprazole 40mg daily Follow-up post procedure 03/31/25 0720 Cosigner Signature (if applicable): CC: Dr. Rito Camp MD; Robe Gill DO~ Signed [facility]07-30-2025 [facility] Medical Records Department [address] [place] [address] History Physical Exam 03/31/25 0718 MR#: [id number] Acct: [id number] Name: JENA RAMIREZ Rep #: [id number] : 1955 70 From: Robe Gill DO PCP: Dr. Rito Camp MD Status:[facility] Location: [place] [address] HPI - General General Date of Admission: 03/31/25 Date of Service: 03/31/25 Chief Complaint: Dysphagia need for screening colonoscopy HPI Narrative JENA RAMIREZ, is a 70 F who presents with the Chief Complaint: dysphagia choke very easily - does not have to be eating - reports she can choke on salivia - couple episodes of dysphagia, FBO, vomiting, seen ED 2-3x for FB removal - she does not remember when these episodes of FBO were - lower esophageal dysphagia, jumps up and down and beats on her chest to release food - upper denture - not chewing food well - cough up small food particlies at times - denies any N/V - denies any HB - denies any change in bowel habits - PMH of COPD and Asthma [facility] 11/24/2024 Mild pharyngeal deficits, including... -Delayed swallow onset. -Consistent, trace laryngeal penetration of liquids w/ complete ejection. No aspiration observed. Esophageal deficits... -Retention of pudding in middle and lower esophagus, which fully cleared w/ thin liquid wash. -Small CP bar at the level of C5-C6, which did not impact bolus clearance through the UES. EGD 06/30/2018 ([facility]) - negative for Mcpherson's and H. pylori The examined jejunum was normal. The examined duodenum was normal. Scattered moderate inflammation characterized by erosions, erythema, friability, granularity and shallow ulcerations was found in the gastric antrum. A small hiatal hernia was present. Non-severe esophagitis with no bleeding was found. Biopsies were taken with a cold forceps for histology. The middle third of the esophagus was normal. Biopsies were taken with a cold forceps for histology. [facility] 2 large food boluses were located in the distal esophagus. I inserted a tri-tip grasper to grasp the food bolus but while I was grasping the food bolus the insufflation from the EGD pushed the food boluses into the stomach. I advanced the scope into the stomach and duodenum and there were no other obstructions noted. - 5 beers a day - former smoker - 1.5c of coffee daily - denies any NSAIDS - she has been on Omeprazole for along time - Father with colon CA - she reports a personal h/o bowel obstruction - uncertain when these 2 epsiodes were - reports it has been 10 years since her last colonoscopy [facility] Medical History Alcohol use Easy bruising Gastric reflux History [...] Arnold-Chiari deformity COPD, moderate Alcohol abuse Osteoporosis Home Medications ???Medication ???Instructions ???Recorded ???Last Taken ???Type melatonin 10 mg sublingual tablet 10 mg PO QHS sleeping pill 03/16/22 21:00 History ascorbic acid (vitamin C) 500 mg 1,000 mg PO DAILY supplement 06/2603/16/22 09:00 History tablet,extended release biotin 5,000 mcg sublingual tablet 5,000 mcg sublingual DAILY 02/2303/16/22 09:00 History supplement cyanocobalamin (vitamin B-12) 2,500 mcg PO DAILY supplement 04/0303/16/22 09:00 History 2,500 mcg tablet acyclovir 400 mg tablet 400 mg PO BID female issue 2 Unknown History calcium carbonate (Calcium 600) 600 mg PO DAILY bones 06/01/23 Unk nown History amlodipine 2.5 mg tablet (Norvasc) 2.5 mg PO DAILY Blood pressure 0 01/01/24 03/31/25 History trazodone 150 mg tablet 150 mg PO QHS 07/21/24 Unknown His tory montelukast 10 mg tablet 10 mg PO QPM breathing #90 tabs Unknown Rx omeprazole 40 mg capsule,delayed 40 mg PO DAILY acid reflux #90 cap s 12/17/24 03/31/25 Rx release ondansetron HCl 4 mg tablet 4 mg PO .COMPLEX #5 tabs 12/17/24 Unknown Rx peg 3350-electrolytes 236 240 ml PO Q10M #4,000 mL 12/21/24 Unknown Rx gram-22.74 gram (more content not included)...[facility] 03-26-2025 Telephone encounter Note* Telephone Encounter - Melita Le LPN - 03/26/2025 8:56 AM EDT Sent pt ms with result note since pt read message but has not contacted office. Pt is scheduled03/29/25 with Shanita unless pt reads results and cancels appointment. Melita Le LPN [facility]07-25-2025 Miscellaneous Notes* Telephone Encounter - Melita Le LPN - 03/26/2025 8:56 AM EDT Sent pt msg with result note since pt read message but has not contacted office. Pt is scheduled03/29/25 with Shanita unless pt reads results and cancels appointment. Melita Le LPN * Telephone Encounter - Melita Le LPN - 03/24/2025 9:11 AM EDT Left additional message for pt to contact office. Also sent msg for pt to contact Triage Nurse. Melita Le LPN * Telephone Encounter - Melita Le LPN - 03/18/2025 11:34 AM EDT Left message for pt to contact office. Melita Le LPN * Telephone Encounter - Shanita Green PA-C - 03/18/2025 11:12 AM EDT Let patient know that her labs were [...] panel results were available. documented in this encounterUniversity [facility]07-[facility] Telephone encounter Note * Telephone Encounter - Melita Le LPN - 03/24/2025 9:11 AM EDT Left additional message for pt to contact office. Also sent msg for pt to contact Triage Nurse. Melita Le LPN [facility]07-21-2025 Telephone encounter Note* Telephone Encounter - Ann Onofre - 03/22/2025 1:05 PM EDT Prescription Refill Information The patient [...] Ann Onofre March 22, 2025 1:05 PM [facility]07-21-2025 Miscellaneous Notes* Telephone Encounter - Ann Onofre - 03/22/2025 1:05 PM EDT Prescription Refill Information The patient [...] 22, 2025 1:05 PM documented in this encounterUniversity [facility]07-[facility]-2025 Telephone encounter Note * Telephone Encounter - Melita Le LPN - 03/18/2025 11:34 AM EDT Left message for pt to contact office. Melita Le LPN [facility]07-17-2025 Telephone encounter Note* Telephone Encounter - Shanita Green PA-C - 03/18/2025 11:12 AM EDT Let patient know that her labs were okay. She had one antibody that was borderline elevated. But all other associated workup was negative. No further testing needed at this time. She scheduled herself for a visit to discuss labs next week. This is not necessary unless she had specific concerns. She made that appointment before the full panel results were available. [facility]07-16-2025 Telephone encounter Note* Telephone Encounter - Jacki Mark LPN - 03/17/2025 10:28 AM EDT This was the PA response. Closed 03/17/2025 [...] been updated to match the prescriber directory. [facility]07-16-2025 Miscellaneous Notes* Telephone Encounter - Jacki Mark LPN - 03/17/2025 10:28 AM EDT This was the PA response. Closed 03/17/2025 [...] been updated to match the prescriber directory. * Telephone Encounter - Jacki Mark LPN - 03/17/2025 10:27 AM EDT Covermymeds SUNNY rec'd. Did request PA electronically to review. * Telephone Encounter - Albania Gill RN - 03/17/2025 9:00 AM EDT Benito madrid [facility] calls with prior authorization questions for [employer]. Questions Answered. Willfax results of prior authorization within 72 hours. Please Watch for response. PRIOR AUTHORIZATION Medication for Prior Authorization: [employer] Insurance Company: [employer] Patient insurance ID number: [id number] Albania Gill RN documented in this encounterUniversity [facility]als [facility]07-16-2025 Telephone encounter Note * Telephone Encounter - Jacki Mark LPN - 03/17/2025 10:27 AM EDT Covermymeds [employer] chance'gavi Did request PA electronically to review. [facility]07-16-2025 Telephone encounter Note* Telephone Encounter - Albania Gill RN - 03/17/2025 9:00 AM EDT Benito from [facility] calls with prior authorization questions for [employer]. Questions Answered. [employer]fax results of prior authorization within 72 hours. Please Watch for response. PRIOR AUTHORIZATION Medication for Prior Authorization: [employer] Insurance Company: [employer] Patient insurance ID number: [id number] Albania Gill RN [facility]07-14-2025 NoteHNO ID: [id number] Author: SHANITA GREEN PA-C Service: ? Author Type: Physician [employer] Professor Type: Progress Notes Filed: 03/15/2025 11:07 Note [...] APPR UNI/BI Tubal lig (more content not included)...[facility]07-14-2025 History of Present illness Narrative* Shanita Green PA-C - 03/15/2025 10:02 AM EDT Chief Complaint Patient presents with: Buttock Pain: [...] medications being taken and desires to reduce medicationuse. Easy Bruising: - Reports easy bruising, particularly [...] pain management and receiving injections for neck andshoulder pain. - Has had multiple back x-rays [...] time - Patient to follow up with paint stripper Dr. Epstein for further evaluation and potential interventions. Shanita rGeen PA-C Recording using [employer] software for draft documentation of the visit was discussed with the patient/authorized phone representative; all questions welcomed and answered. Patient/authorized phone representative agreed to proceed documented in this encounterUniversity Hospitals [facility]06-10-2025 Evaluation note* Diagnosis Onset Date Resolution Status Admit Date Asthma-COPD overlap syndrome chronic February 09, 2025 10:42am Nicotine dependence, cigarettes, in remission chronic February 092024 10:42am Dysphagia acute March 31 6:50am Encounter for screening colonoscopy acute March 31, 2025 6:50am Family history of colon canc er in father acute March 31, 2025 6:50am Cough after eating acute April 20, 2025 9:31am Dysphagia acute April 20, 2 025 9:31am Esophagitis acute April 20, 2025 9:31am [facility] Work Phone: [phone]) 222-543005-20-2025 NoteHNO ID: [id number] Author: MELITA LE LPN Service: ? Author Type: LICENSED NURSE Type: Progress Notes Filed: 01/19/2025 12:14 Note Text: Scan on 01/18/2025 9:18 AM by Provider, [facility]: Consultation - PT/OT/[facility] Telephone encounter Note* Telephone Encounter - Melita Le LPN - 01/05/2025 11:22 AM EDT Pt notified of same. Melita Le LPN [facility]05-06-2025 Miscellaneous Notes* Telephone Encounter - Melita Le LPN - 01/05/2025 11:22 AM EDT Pt notified of same. Melita Le LPN * Telephone Encounter - Shanita Green PA-C - 01/05/2025 11:16 AM EDT Xray is negative for fracture. Shanita Green PA-C documented in this encounterUniversity Hospitals Lake [facility] Center05-06-2025 Telephone encounter Note * Telephone Encounter - Shanita Green PA-C - 01/05/2025 11:16 AM EDT Xray is negative for fracture. Shanita Green PA-C [facility]05-06-2025 History of Present illness Narrative* James Brewer RT(R) - 01/05/2025 10:50 AM EDT Radiology Service Progress Note PATIENT [...] Assigned female at . status: : No status:NO. PATIENT RELEVANT IMPLANT DATA REVIEWED: Yes PATIENT PRESENTS WITH AN IMPLANTABLE OR ATTACHED LOCKSTITCH TOPSTITCHER: No RADIOLOGY DEPARTMENT: General X-ray: Exam(s) Completed: Lower Extremity X- Ray(s): Foot, Right PERIPHERAL IV DATA: Not applicable SIGNED BY: RT Berry(Renata) January 05, 2025 10:41 AM documented in this encounterUniversity Hospitals Lake [facility] Center05-06-2025 NoteHNO ID: [id number] Author: JAMES BREWER RT(R) Service: ? Author Type: Recreation Attendant Type: Progress Notes Filed: 01/05/2025 10:50 Note [...] PATIENT PRESENTS WITH AN IMPLANTABLE OR ATTACHED LOCKSTITCH TOPSTITCHER: No RADIOLOGY DEPARTMENT: General X-ray: Exam(s) Completed: Lower Extremity X-Ray(s): Foot, Right PERIPHERAL IV DATA: Not applicable SIGNED BY: RT Berry(Renata) January 05, 2025 10:41 [facility]05-06-2025 NoteHNO ID: [id number] Author: SHANITA GREEN PA-C Service: ? Author Type: Physician [employer] Professor Type: Progress Notes Filed: 01/05/2025 10:47 Note [...] Undergoing annual monitoring for pulmonary nodules by manager ems. - Recent lung scan performed at the [...] Polyps Father Hypertension Fathe (more content not included)...[facility] 01-05-2025 History of Present illness Narrative* Shanita Green PA-C - 01/05/2025 10:08 AM EDT Chief Complaint Patient presents with: Toe Pain [...] 3.4 cm and distal ascending aorta at 3.5cm. - Family history of aortic aneurysm in father and cerebral aneurysm in mother. - Concerned about potential hereditary nature of aneurysm. Pulmonary Nodules: - Undergoing annual monitoring for pulmonary nodules by manager ems. - Recent lung scan performed at the [...] of 4th and 5th toe noted. No erythema.NVI. Health Maintenance List Mammogram Screening due on [...] 1. Injury of right toe, initial encounter (S55.615J) - Ordered X-ray of the right foot [...] the plan. Shanita Green PA-C Recording using [employer] software for draft documentation of the visit was discussed with the patient/authorized phone representative; all questions welcomed and answered. Patient/authorized phone representative agreed to proceed documented in this encounterUniversity Hospitals Lake West Medical Center05-05-2025 NoteHNO ID: [id number] Author: MELITA LE LPN Service: ? Author Type: LICENSED NURSE Type: Progress Notes Filed: 01/04/2025 07:34 Note Text: Scan on 01/03/2025 12:29 AM by ProviderJenna PA-C: [facility]05-[facility] History of Present illness Narrative* Melita Le LPN - 01/04/2025 7:34 AM EDT Scan on 01/03/2025 12:29 AM by Provider, [facility]: CT Scan documented in this encounterUniversity Hospitals Lake West Medical Center05-04-2025 Radiology Diagnostic study note [facility] Imaging Services [address] [place] [id number] Lung Screening MR#: [id number] Acct: [id number] Name: JENA RAMIREZ Rep #: [id number] : 1955 F 69 From: Yoana Lopez MD PCP: Dr. Rito Camp MD Status: [facility] Study:Low Dose CT Lung Screening Date of Exam : 01/01/25 Exam# [id number] Ordering Dr: Tiffanie Dee CLEAT FEEDER CLEAT FEEDER-C PROCEDURE: LOW DOSE CT LUNG SCREENING 01/01/2025 REASON FOR EXAM: SMOKER QUIT 2010 TECHNIQUE: Low Dose CT Lung screening without contrast. Coronal and Sagittal reconstructionseries were provided. One or more dose reduction techniques were used (e.g., Automated exposure control, adjustment of the mA and/or kV according to patient size, use of iterative reconstruction technique). REFERENCE LINK: ACTV8 Lung-RADS RADIATION DOSE SUMMARY: CTDlvol: 2.0 mGy DLP: 61.2 mGycm COMPARISON: CT chest on 01/01/2024 and 05/16/2022. FINDINGS: PULMONARY NODULES: (Only nodules >3 mm are reported) Nodules described below are on series 2 unless otherwise specified. Pulmonary Nodules: Perifissural nodule in the left lower lobe measuring 3 mm (image 116), unchanged Lymph Nodes:Unremarkable Heart and Vasculature:Coronary artery calcifications are noted.Trace atherosclerotic calcificationsof the thoracic aorta. Thoracic aorta and pulmonary [...] artery calcification (CAC) is present Reading Location: [id number] CC: TRACI Dee; Dr. Rito Camp MD ~ Curator Of Manuscripts: Signed [facility]04-29-2025 Telephone encounter Note* Telephone Encounter - Melita Le LPN - 12/29/2024 8:55 AM EDT Pt notified of results and pcp's instructions. Pt verbalizes understanding. Pt would just like to go back on the Fosamax. Pt states she saw endo in the past and they had mentioned the Prolia injection but she states it was too expensive and her insurance won't cover it. Pt uses [facility]. Magdy Le LPN [facility]04-29-2025 Miscellaneous Notes* Telephone Encounter - Melita Le LPN - 12/29/2024 8:55 AM EDT Pt notified of results and pcp's instructions. Pt verbalizes understanding. Pt would just like to go back on the Fosamax. Pt states she saw endo in the past and they had mentioned the Prolia injection but she states it was too expensive and her insurance won't cover it. Pt uses [facility]. Magdy Le LPN * Telephone Encounter - Rito Camp MD - 12/28/2024 4:18 PM EDT Let patient know her bone study shows her bone strength has gotten worse. Her 10 year risk of a major bone fracture is 21%. We can either place her back on Fosamax once a week or have her see endo todiscuss other alternatives that may be better. documented in this encounterUniversity Hospitals Lake West Medical Center04-28-2025 Telephone encounter Note * Telephone Encounter - Rito Camp MD - 12/28/2024 4:18 PM EDT Let patient know her bone study shows her bone strength has gotten worse. Her 10 year risk of a major bone fracture is 21%. We can either place her back on Fosamax once a week or have her see endo todiscuss other alternatives that may be better. [facility]04-28-2025 History of Present illness Narrative* Bashir Landa RT(R) - 12/28/2024 8:55 AM EDT Radiology Service Progress Note PATIENT [...] Assigned female at . status: : No status:NO. PATIENT RELEVANT IMPLANT DATA REVIEWED: Not Applicable PATIENT PRESENTS WITH AN IMPLANTABLE OR ATTACHED LOCKSTITCH TOPSTITCHER: No RADIOLOGY DEPARTMENT: Bone Density PERIPHERAL IV DATA: Not applicable SIGNED BY: RT Rivka(R) December 28, 2024 8:52 AM documented in this encounterUniversity Hospitals Lake West Medical Center04-28-2025 NoteHNO ID: [id number] Author: BASHIR LANDA RT(R) Service: ? Author [...] PATIENT PRESENTS WITH AN IMPLANTABLE OR ATTACHED LOCKSTITCH TOPSTITCHER: No RADIOLOGY DEPARTMENT: Bone Density PERIPHERAL IV DATA: Not applicable SIGNED BY: RT Rivka(R) December 28, 2024 8:52 [facility]04-17-2025 Evaluation note* Diagnosis Onset Date Resolution Status Admit Date Dysphagia acute December 17 10:25am Encounter for screening colonoscopy acute December 17, 2024 10:25am Family history of colon canc er in father acute December 17, 2024 10:25am [facility] Work Phone: [phone]) 224-621304-17-2025 Evaluation note* Diagnosis Onset Date Resolution Status Admit Date Dysphagia acute December 17 10:25am Encounter for screening colonoscopy acute December 17, 2024 10:25am Family history of colon canc er in father acute December 17, 2024 10:25am Asthma-COPD overlap syndrome chronic February 09, 2025 10:42am Nicotine dependence, cigarettes, in remission chronic February 092024 10:42am Dysphagia acute March 31 6:50am Encounter for screening colonoscopy acute March 31, 2025 6:50am Family history of colon canc er in father acute March 31, 2025 6:50am [facility] Work Phone: 1(195) 359-880004-04-2025 Telephone encounter Note* Telephone Encounter - Mitzy Dewey LPN - 12/04/2024 10:48 AM EDT Phoned patient and she reported she was aware of results and she had referral already placed, testing scheduled and ST ordered already. She stated she cancelled her follow up with Dr Camp but will let us know if she needs anything else. Mitzy Dewey LPN [facility]04-04-2025 Miscellaneous Notes* Telephone Encounter - Mitzy Dewey LPN - 12/04/2024 10:48 AM EDT Phoned patient and she reported she was aware of results and she had referral already placed, testing scheduled and ST ordered already. She stated she cancelled her follow up with Dr Camp but will let us know if she needs anything else. Mitzy Dewey LPN * Telephone Encounter - Charlie Dodge MD - 12/02/2024 11:27 AM EDT Barium swallow results reviewed. Would have patient follow recommendations as written. Let us know if they need speech therapy referral order. Keep f/u with Dr. Camp next week. * Telephone Encounter - Aury Newton MA - 12/02/2024 11:24 AM EDT Scan on 11/30/2024 10:14 AM by Provider, External, PAErnieC: GI Review results. Aury Newton MA' documented in this encounterUniversity Hospitals Lake West Medical Center04-02-2025 Telephone encounter Note * Telephone Encounter - Charlie Dodge MD - 12/02/2024 11:27 AM EDT Barium swallow results reviewed. Would have patient follow recommendations as written. Let us know if they need speech therapy referral order. Keep f/u with Dr. Camp next week. [facility] Work Phone: [phone] Telephone encounter Note* Telephone Encounter - Aury Newton MA - 12/02/2024 11:24 AM EDT Scan on 11/30/2024 10:14 AM by Provider, External, PAErnieC: GI Review results. Aury Newton MA' [facility]04-01-2025 Telephone encounter Note* Telephone Encounter - Cami Kidd MA - 12/01/2024 3:12 PM EDT Pt notified and requested it be sent to Dr jackson office. Faxed info. Cami Kidd MA [facility]04-01-2025 Miscellaneous Notes* Telephone Encounter - Cami Kidd MA - 12/01/2024 3:12 PM EDT Pt notified and requested it be sent to Dr jackson office. Faxed info. Cami Kidd MA * Telephone Encounter - Alex Brown APRN.CNP - 12/01/2024 2:48 PM EDT Please let patient know I have reviewed her swallow study and placed GI referral. * Telephone Encounter - Kasey Becker LPN - 12/01/2024 1:39 PM EDT Patient calling said she had swallowing study done at [facility] on 11/24/2024. She is upset that PCP has not gotten copy of the results yet. She called [facility] med recs dept yesterday and was told being faxed as she was talking to the lady. She talking about bringing her copy to the office and have copy made for PCP. She was told needs Gastro consult, she was hoping to stay with [facility] if PCP wants to give thereferral. Please advise documented in this encounterUniversity Hospitals Lake West Medical Center04-01-2025 Telephone encounter Note * Telephone Encounter - Alex Brown APRN.CNP - 12/01/2024 2:48 PM EDT Please let patient know I have reviewed her swallow study and placed GI referral. [facility]04-01-2025 Telephone encounter Note* Telephone Encounter - Kasey Becker LPN - 12/01/2024 1:39 PM EDT Patient calling said she had swallowing study done at [facility] on 11/24/2024. She is upset that PCP has not gotten copy of the results yet. She called [facility] med recs dept yesterday and was told being faxed as she was talking to the lady. She talking about bringing her copy to the office and have copy made for PCP. She was told needs Gastro consult, she was hoping to stay with [facility] if PCP wants to give thereferral. Please advise [facility]03-31-2025 Telephone encounter Note* Telephone Encounter - Angella [...] Angella Kirkland November 30, 2024 10:55 AM [facility] Work Phone: 1(589) 165-500803-31-2025 Miscellaneous Notes* Telephone Encounter - Angella Stevens [...] 30, 2024 10:55 AM documented in this encounterUniversity Hospitals Lake West Medical Center03-25-2025 Procedure note [facility] Speech Pathology [address] [place] [address] Modified Barium Swallow Study MR#: [id number] Acct: [id number] Name: JENA RAMIREZ Rep #:[id number] : [id number] 69 From: Krysta King [facility] OPERATOR Modified Barium Swallow Patient Information Study Date: [...] in swallow onset. -GERD education. When this [employer] REPRINTING UNIT OPERATOR recommended liquid wash between bites, the patient reported she onlydrinks her beer before or after a meal. [employer] REPRINTING UNIT OPERATOR recommended water to wash foods during the [...] Status Active ST Patient: Active Contact Information [facility] Speech Therapy:: Krysta Tatum M.A. [facility] OPERATOR? Speech-Language Pathologist?? [facility] [address] [place] [address]? [email or web address]?? [phone] 11/24/24 Quan Niño [facility] OPERATOR> Date/Time Krysta Tatum M.A. [facility] OPERATOR Co-Signature Required for all Medicare patients Date/Time Co-Signature CC: ~ [facility]03-11-2025 NoteHNO ID: [id number] Author: MELITA LE LPN Service: ? Author Type: LICENSED NURSE Type: Progress Notes Filed: 11/10/2024 12:54 Note Text: Scan on 11/10/2024 9:40 AM by ProviderJenna PA-C: Consultation - Anest[facility]03-11-2025 History of Present illness Narrative* Melita Le LPN - 11/10/2024 12:54 PM EDT Scan on 11/10/2024 9:40 AM by Jenna Garcias PA-C: Consultation - Anesthesia/Pain documented in this encounterUniversity Hospitals Lake West Medical Center2025 Telephone encounter Note * Telephone Encounter - Mary Ann Gamboa - 11/09/2024 10:23 AM EDT Physician: Naina Call from patient requesting refill. Please Call in Last OV: 08/03/24 with Bran Future OV: 12/08/24 with Naina Requested Prescriptions Pending Prescriptions Disp Refills QUEtiapine (SEROQUEL) 25 mg tablet 30 tablet 1 Sig: Take 1 tablet by mouth daily at bedtime. Pharmacy Name: [facility] Phone #: [phone] Mary Ann Gamboa [facility]2025 Miscellaneous Notes* Telephone Encounter - Mary Ann Gamboa - 11/09/2024 10:23 AM EDT Physician: Naina Call from patient requesting refill. Please Call in Last OV: 08/03/24 with Bran Future OV: 12/08/24 with Naina Requested Prescriptions Pending Prescriptions Disp Refills QUEtiapine (SEROQUEL) 25 mg tablet 30 tablet 1 Sig: Take 1 tablet by mouth daily at bedtime. Pharmacy Name: [facility] Phone #: [phone] Mary Ann Gamboa documented in this encounterUniversity Hospitals Lake West Medical Center03-06-2025 NoteHNO ID: [id number] Author: ?, ?, ? Service: ? Author Type: ? Type: Progress Notes Filed: 11/05/2024 14:37 Note Text: POPULATION HEALTH NAVIGATION OUTREACH Action/[facility] Support: Called pt to schedule an appt in Pain Management. Lvm for pt to call [phone] for scheduling. Any agent can assist. Reason for Outreach Care Gap/HCC or Scheduling Wellness Visits Care Gaps due: N/A Patient Contacted: Unable or unnecessary to reach patient: Left message [employer] message sent Navigation Signature: Sierra Angeles November 05, 2024 2:36 [facility]03-06-2025 History of Present illness Narrative* Sierra Angeles - 11/05/2024 2:36 PM EST POPULATION HEALTH NAVIGATION OUTREACH Action/[facility] Support: Called pt to schedule an appt in Pain Management. Lvm for pt to call [phone] for scheduling. Any agent can assist. Reason for Outreach Care Gap/HCC or Scheduling Wellness Visits Care Gaps due: N/A Patient Contacted: Unable or unnecessary to reach patient: Left message [employer] message sent Navigation Signature: Sierra Angeles November 05, 2024 2:36 PM documented in this encounterUniversity Hospitals Lake West Medical Center03-06-2025 NotePatient Outreach (NETNAV) DIONY RAMIREZ ([id number]) 1955 F Date Time Provider Department 11/05/24 NO PCP (HIST) NETNAV During your visit today, we recorded the following information about you: Sierra Angeles 11/05/2024 2:37 PM Signed POPULATION HEALTH NAVIGATION OUTREACH Action/[facility] Support: Called pt to schedule an appt in Pain Management. Lvm for pt to call [phone] for scheduling. Any agent can assist. Reason for Outreach Care Gap/HCC or Scheduling Wellness Visits Care Gaps due: N/A Patient Contacted: Unable or unnecessary to reach patient: Left message [employer] message sent Navigation Signature: Sierra Angeles November [...] [Z71.8*09/27/2022 Ectatic thoracic ao (more content not included)...[facility] 11-04-2024 Telephone encounter Note* Telephone Encounter - Rosita Melgoza RN - 11/04/2024 7:03 PM EST Office notes from 08/03/24 and 10/01/24, consult order, hip x ray from 08/03/24, demographics printed and faxed to Dr. Montilla's office at [phone]. Called pt and notified that she should be able tocontact Dr. Montilla's office for an appt tomorrow. [facility]03-05-2025 Miscellaneous Notes* Telephone Encounter - Rosita Melgoza RN - 11/04/2024 7:03 PM EST Office notes from 08/03/24 and 10/01/24, consult order, hip x ray from 08/03/24, demographics printed and faxed to Dr. Montilla's office at [phone]. Called pt and notified that she should [...] is not helping either. documented in this encounterUniversity Hospitals Lake West Medical Center03-05-2025 Telephone encounter Note * Telephone Encounter - Rito Camp MD - 11/04/2024 4:13 PM EST Order placed for consult to Dr. Epstein. Please send copy of office note from 10/01/2024 and 08/03/2025 along with the hip x-ray from 08/03/2024. [facility]03-05-2025 Telephone encounter Note* Telephone Encounter - Rosita [...] Dr. Camp prescribed is not helping either. [facility]03-03-2025 Telephone encounter Note* Telephone Encounter - Melita [...] Le LPN November 02, 2024 10:23 AM [facility]03-03-2025 Miscellaneous Notes* Telephone Encounter - Melita Le [...] Thank you. Rakel Newton. documented in this encounterUniversity Hospitals Lake West Medical Center03-03-2025 Telephone encounter Note * Telephone Encounter - [...] 12/08/2024 Please advise. Thank you. Rakel Newton. [facility]02-24-2025 Telephone encounter Note* Telephone Encounter - Elana Waller PSS - 10/26/2024 4:27 PM EST CD READY FOR LAUNDROMAT WORKER AT [facility] Pt is aware [facility]02-24-2025 Miscellaneous Notes* Telephone Encounter - Elana Waller PSS - 10/26/2024 4:27 PM EST CD READY FOR LAUNDROMAT WORKER AT [facility] Pt is aware * Telephone Encounter - Truman Campos - 10/26/2024 1:20 PM EST Patient is requesting her HIP xray from 08/03/24 be placed on a disc. Thank you. documented in this encounterUniversity Hospitals Lake West Medical Center02-24-2025 Telephone encounter Note * Telephone Encounter - Truman Campos - 10/26/2024 1:20 PM EST Patient is requesting her HIP xray from 08/03/24 be placed on a disc. Thank you. [facility]02-21-2025 NoteHNO ID: [id number] Author: AURY NEWTON MA Service: ? Author Type: Pet Sitting Type: Progress Notes Filed: 10/23/2024 14:48 Note Text: Order/Demo faxed to [facility]. Referral placed. Aury Newton [facility]02-21-2025 NoteHNO ID: [id number] Author: RITO CAMP MD Service: ? Author Type: Physician Type: Progress Notes Filed: 10/23/2024 14:13 Note Text: Order readyTrihealth02-21-2025 NoteHNO ID: [id number] Author: KASEY BECKER LPN Service: ? Author Type: LICENSED NURSE Type: Progress Notes Filed: 10/23/2024 11:00 Note Text: Patient calling said the Speech Therapist did not have the order at [facility] for her to schedule appt. So patient is asking if PCP could give the order for the Barium swallow/cookie swallow and fax it to [facility] please. Patient phone number is [phone]. Pending order, needs diagnosis. Please advisTriHealth02-21-2025 NoteHNO ID: [id number] Author: AURY NEWTON MA Service: ? Author Type: Pet Sitting Type: Progress Notes Filed: 10/23/2024 09:21 Note Text: Spoke with patient and she indicated that the tech who completed the test would be sending an order. Patient has not heard from anyone one scheduling. Gave patient the scheduling number and told her if there is an issue with needing an order to let us know and we can send over. Aury Newton [facility]02-18-2025 NoteHNO ID: [id number] Author: RITO CAMP MD Service: ? Author Type: Physician Type: Progress Notes Filed: 10/20/2024 16:10 Note Text: Find out from speech therapy If I need to order the modified Barium Swallow/Cookie swallow (MBSS) or do they get it set up?[facility]02-18-2025 History of Present illness Narrative* Rito Camp MD - 10/20/2024 4:09 PM EST Find out from speech therapy If I need to order the modified Barium Swallow/Cookie swallow (MBSS) or do they get it set up? * Melita Le LPN - 10/20/2024 1:59 PM EST Scan on 10/20/2024 1:01 PM by Provider, Jenna PAErnieC: Consultation - PT/OT/Speech documented in this encounterUniversity Hospitals Lake West Medical Center02-18-2025 NoteHNO ID: [id number] Author: MELITA LE LPN Service: ? Author Type: LICENSED NURSE Type: Progress Notes Filed: 10/20/2024 13:59 Note Text: Scan on 10/20/2024 1:01 PM by Provider, Jenna PA-C: Consultation - PT/OT/SpeechTrihealth02-11-2025 History of Present illness Narrative* Mary Ann Oscar, PT - 10/13/2024 10:48 AM EST Program_ID:[id number] Access Code: [email or web address] URL: [email or web address] Date: 10-13-2024 Prepared By: Mary Ann Oscar [...] and function . Patient education as noted. Self-Detention Management: 1: encouraged taking rest before pt. body no longer even allows her to push herself. 2: discussed goal to manage low back pain rather than do nothing while symptoms do not change 3: discussed goal of determining at direction of movement that the low back responds well to at this point 4: advised carrying a outreach analyst purse, be sure to switch sides Skilled [...] Mary Ann Oscar PT documented in this encounterUniversity Hospitals Lake West Medical Center02-11-2025 NoteHNO ID: [id number] Author: MARY ANN OSCAR PT Service: ? Author Type: Physical Therapist Type: Progress Notes Filed: 10/27/2024 10:33 Note Text: 10/27/2024 [facility] PHYSICAL THERAPY DISCONTINUANCE OF CARE Plan of Care Period: Start of Care Date: 09/29/24 Last Visit Date: 10/13/2024 Therapy Program: The following is a summary of the interventions provided for this episode of care; Therapeutic exercise and Self-half-way management Assessment: Based on most recent visit, [...] or scheduled additional follow-up appointments. Mary Ann Ocsar, PT Episode Visit Count: 2 Therapist That [...] and function . Patient education as noted. Self-Detention Management: 1: encouraged taking rest before pt. body no longer even allows her to push herself. 2: discussed goal to manage low back pain rather than do nothing while symptoms do not change 3: discussed goal of determining at direction of movement that the low back responds well to at this point 4: advised carrying a outreach analyst purse, be sure to switch sides Skilled [...] Minutes: 10 Skilled Treatme (more content not included)...[facility] 10-01-2024 Instructions* Patient Instructions* Rito Camp MD [...] review all the medicines you take, even jcsg-wjd-bqmjtrv medicines. As you get older, the way [...] have certain medical conditions. documented in this encounterUniversity Hospitals Lake West Medical Center01-30-2025 History of Present illness Narrative* Rito Camp [...] - General (Family Medicine) Suleman Gustafson as Conservation Science Teacher Alex Brown APRN.LUIS FELIPE as Woven Wood Shade Assembler (Family Medicine) Shanita Green PA-C as Woven Wood Shade Assembler (Family Medicine) Dr. Epstein: Pin management Dr. [...] Lymph 1.00 - 4.00 k/uL 1.76 1.58 Ross% % 10.0 9.5 Abs Ross <0.87 k/uL 0.68 0.62 Eosin% % 3.4 [...] Negative Ketones, Urine Negative Negative Negative Specific [place], Ur 1.005 - 1.030 1.005 1.015 Hemoglobin/Blood,Ur [...] a swallowing test with PHYSICAL THERAPY at [facility] 19. Advance directive discussed with patient - [...] which included preparing to see the patient, swyx-ys-csiw patient care, completing clinical documentation, performing a medically appropriate examination, counseling and educating the patient/family/caregiver and ordering medications, tests, or procedures. Rito Camp MD documented in this encounterUniversity Hospitals Lake West Medical Center01-30-2025 NoteHNO ID: [id number] Author: RITO CAMP MD Service: ? Author [...] - General (Family Medicine) Suleman Gustafson as Conservation Science Teacher Alex Brown APRN.LUIS FELIPE as Woven Wood Shade Assembler (Family Medicine) Shanita Green PA-C as Woven Wood Shade Assembler (Family Medicine) Dr. Epstein: Pin management Dr. [...] of lumbar spine 05/06/2014 Ectatic thoracic aorta ([facility]) 12/04/2022 CT done 12/2022 Elevated blood sugar 01/27/2021 Emphysema of lung ([facility]) 03/18/2015 Essential hypertension, benign 02/21/2015 Ex-smoker 01/27/2021 [...] future controlled med scripts Retinal detachment in [facility] (more content not included)...[facility]01-29-2025 Telephone encounter Note* Telephone Encounter - Jack Kirkland Angella M - 09/30/2024 3:38 PM EST Prescription Refill [...] Angella Kirkland September 30, 2024 3:39 PM [facility]01-29-2025 Miscellaneous Notes* Telephone Encounter - Angella Stevens [...] 30, 2024 3:39 PM documented in this encounterUniversity Hospitals Lake West Medical Center01-28-2025 History of Present illness Narrative* Mary Ann Oscar, PT - 09/29/2024 12:26 PM EST Program_ID:[id number] Access Code: [email or web address] URL: [email or web address] Date: 09-29-2024 Prepared By: Mary Ann Oscar [...] Planned: 6 Planned Treatment Interventions: Therapeutic exercise (69292), Neuromuscular re- education (71101), Manual therapy (65598), Therapeutic activities (86472), Self- half-way management (77593), Gait Training (41822) PLAN FOR NEXT VISIT: Pt. has $35 [...] Lumbar Extension: Moderate limitation Lumbar R Side [place]: Minimal limitation Lumbar L Side [place]: Minimal limitation Lumbar R Side-Bend: Normal Lumbar [...] Demonstration TREATMENT: PT Treatment Interventions: Therapeutic Exercise, Self-Detention Management Evaluation Therapeutic Exercise: 1: *Access Code: [email or web address] URL: [email or web address] Date: 09/29/2024 Prepared by: Mary Ann Hernandez [...] and function . Patient education as noted. Self-Detention Management: 1: discussed lumbar flexion directional preference [...] Mary Ann Oscar PT documented in this encounterUniversity Hospitals Lake West Medical Center01-28-2025 NoteHNO ID: [id number] Author: MARY ANN OSCAR PT Service: ? [...] Planned: 6 Planned Treatment Interventions: Therapeutic exercise (52337), Neuromuscular re-education (81637), Manual therapy (49848), Therapeutic activities (46195), Self-half-way management (79769), Gait Training (41921) PLAN FOR NEXT VISIT: Pt. has $35 [...] (within normal limits) [place] (more content not included)...[facility]01-14-2025 Telephone encounter Note* Telephone Encounter - Kasey Becker LPN - 09/15/2024 1:00 PM EST Patient calling she had appt today in Pulmonary office with Letha Emery CLEAT FEEDER at Dr Suleman Gustafson office. Asking for a copy of the CR Chest report faxed to [phone]. Printed report from 12/2022 and faxed as requested. [facility]01-14-2025 Miscellaneous Notes* Telephone Encounter - Kasey Becker LPN - 09/15/2024 1:00 PM EST Patient calling she had appt today in Pulmonary office with Letha Emery CLEAT FEEDER at Dr Suleman Gustafson office. Asking for a copy of the CR Chest report faxed to [phone]. Printed report from 12/2022 and faxed as requested. documented in this encounterUniversity Hospitals Lake West Medical Center01-14-2025 Evaluation note* Diagnosis Onset Date Resolution Status Admit Date Asthma-COPD overlap syndrome chronic September 15, 2024 10:58am Nicotine dependence, cigarettes, in remission chronic September 15, 2024 10:58am [facility] Work Phone: [phone] Evaluation note* Diagnosis Onset Date Resolution Status Admit Date Asthma-COPD overlap syndrome chronic September 15, 2024 10:58am Nicotine dependence, cigarettes, in remission chronic September 15, 2024 10:58am Dysphagia acute December 17 10:25am Encounter for screening colonoscopy acute December 17, 2024 10:25am Family history of colon canc er in father acute December 17, 2024 10:25am [facility] Work Phone: [phone] Telephone encounter Note* Telephone Encounter - Kasey Becker LPN - 09/08/2024 12:52 PM EST Phoned patient aware fasting lab work orders in computer for her to complete. [facility]01-07-2025 Miscellaneous Notes* Telephone Encounter - Kasey Becker [...] placed. Elizabeth Eckert LPN documented in this encounterUniversity Hospitals Lake West Medical Center01-07-2025 Telephone encounter Note * Telephone Encounter - Shanita Green PA-C - 09/08/2024 12:33 PM EST Labs placed [facility]01-07-2025 Telephone encounter Note* Telephone Encounter - Elizabeth [...] orders have been placed. Elizabeth Eckert LPN [facility]12-12-2024 NoteHNO ID: [id number] Author: CHRISTINE PARKER RN Service: ? Author [...] more often than normal? No Based on skate shop attendant, the following disposition is advised: No symptoms [...] Christine Parker RN August 13, 2024 11:20 [facility]12-12-2024 History of Present illness Narrative* Christine Parker [...] more often than normal? No Based on skate shop attendant, the following disposition is advised: No symptoms [...] 13, 2024 11:20 AM documented in this encounterUniversity Hospitals Lake West Medical Center12-12-2024 NotePatient Outreach ([facility]) DIONY RAMIREZ ([id number]) 1955 F Date Time Provider Department 08/13/24 CHRISTINE PARKER During your visit today, we [...] more often than normal? No Based on skate shop attendant, the following disposition is advised: No symptoms [...] - Unknown Date Reviewed: 08/03/2024 Reviewed by: Cami Kidd MA - Fully Assessed Reason for [...] coronavirus disease (C (more content not included)... [facility]12-11-2024 NoteHNO ID: [id number] Author: CHRISTINE PARKER RN Service: ? Author Type: Registered Nurse Type: Progress Notes Filed: 08/12/2024 15:15 Note Text: [facility] Telephonic Outreach Provider Action/FYI 1st attempt Contacted for: Routine Telephonic Outreach Contact made with patient: No, left message. Christine Parker RN August 12, 2024 3:14 [facility]12-11-2024 History of Present illness Narrative* Christine Parker RN - 08/12/2024 3:07 PM EST [facility] Telephonic Outreach Provider Action/FYI 1st attempt Contacted for: Routine Telephonic Outreach Contact made with patient: No, left message. Christine Parker RN August 12, 2024 3:14 PM documented in this encounterUniversity Hospitals Lake West Medical Center12-11-2024 NotePatient Outreach ([facility]) DIONY RAMIREZ ([id number]) 1955 F Date Time Provider Department 08/12/24 CHRISTINE PARKER During your visit today, we recorded the following information about you: Christine Parker RN 08/12/2024 3:15 PM Signed CDM Telephonic Outreach Provider Action/FYI 1st [...] - Unknown Date Reviewed: 08/03/2024 Reviewed by: Cami Kidd MA - Fully Assessed Reason for [...] Encounter Status:Closed by CHRISTINE PARKER RN on 08/12/24[facility]12-04-2024 Telephone encounter Note* Telephone Encounter - Shanita Green PA-C - 08/05/2024 2:33 PM EST Consult placed. [facility]12-04-2024 Miscellaneous Notes* Telephone Encounter - Shanita Green [...] PhysicalTherapy. Shanita Green PA-C documented in this encounterUniversity Hospitals Lake West Medical Center12-04-2024 Telephone encounter Note * Telephone Encounter - Aury Newton MA - 08/05/2024 1:56 PM EST Patient notified and voiced understanding. She is will to try a few visits to see. Please place consult and send to scheduling. Aury Newton MA [facility]12-04-2024 Telephone encounter Note* Telephone Encounter - Shanita Green PA-C - 08/05/2024 11:57 AM EST Let patient know that her xray shows arthritic changes. No acute findings. Would recommend PhysicalTherapy. Shanita Green PA-C [facility]12-02-2024 History of Present illness Narrative* James Brewer [...] PATIENT PRESENTS WITH AN IMPLANTABLE OR ATTACHED LOCKSTITCH TOPSTITCHER: No RADIOLOGY DEPARTMENT: General X-ray: Exam(s) Completed: Pelvis X-Ray: Pelvis with Hip Left PERIPHERAL IV DATA: Not applicable SIGNED BY: RT Berry(Renata) August 03, 2024 10:11 AM documented in this encounterUniversity Hospitals Lake West Medical Center12-02-2024 NoteHNO ID: [id number] Author: JAMES BREWER RT(R) Service: ? Author Type: Recreation Attendant Type: Progress Notes Filed: 08/03/2024 10:21 Note [...] PATIENT PRESENTS WITH AN IMPLANTABLE OR ATTACHED LOCKSTITCH TOPSTITCHER: No RADIOLOGY DEPARTMENT: General X-ray: Exam(s) Completed: Pelvis X-Ray: Pelvis with Hip Left PERIPHERAL IV DATA: Not applicable SIGNED BY: RT Berry(Renata) August 03, 2024 10:11 [facility]12-02-2024 Instructions* Patient Instructions* Alex Brown APRN.GRAVEL SCREENER - 08/03/2024 9:31 AM EST Magnesium glycinate-200mg at night documented in this encounterUniversity Hospitals Lake West Medical Center12-02-2024 NoteHNO ID: [id number] Author: ALEX BROWN APRN.LUIS FELIPE Service: ? [...] mcg/actuation inhaler BIOTIN OR (more content not included)...[facility]12-02-2024 History of Present illness Narrative* Alex Brown, APPLICATION PACKAGER.GRAVEL SCREENER - 08/03/2024 9:21 AM EST Chief Complaint [...] HIP GENERAL 3V PELV/AP/LAT LEFT Alex Brown APRN.GRAVEL SCREENER documented in this encounterUniversity Hospitals Lake West Medical Center11-29-2024 History of Present illness Narrative* Bashir Landa [...] PATIENT PRESENTS WITH AN IMPLANTABLE OR ATTACHED LOCKSTITCH TOPSTITCHER: No RADIOLOGY DEPARTMENT: General X-ray: Exam(s) Completed: Chest X-Ray PERIPHERAL IV DATA: Not applicable SIGNED BY: CLAUDIA Tineo) July 31, 2024 11:03 AM documented in this encounterUniversity Hospitals Lake West Medical Center11-29-2024 NoteHNO ID: [id number] Author: BASHIR LANDA RT(R) Service: ? Author [...] PATIENT PRESENTS WITH AN IMPLANTABLE OR ATTACHED LOCKSTITCH TOPSTITCHER: No RADIOLOGY DEPARTMENT: General X-ray: Exam(s) Completed: Chest X-Ray PERIPHERAL IV DATA: Not applicable SIGNED BY: Bashir Landa, RT(R) July 31, 2024 11:03 [facility]11-29-2024 NoteHNO ID: [id number] Author: SHANNA NEWTON APRN.GRAVEL SCREENER Service: ? Author Type: Nurse Practitioner Type: [...] of lumbar spine 05/06/2014 Ectatic thoracic aorta ([facility]) 12/04/2022 CT done 12/2022 Elevated blood sugar 01/27/2021 Emphysema of lung ([facility]) 03/18/2015 Essential hypertension, benign 02/21/2015 Ex-smoker 01/27/2021 [...] mcg/actuation inhaler BIOTIN OR (more content not included)...[facility]11-29-2024 History of Present illness Narrative* Shanna Newton APRN.[facility] - 07/31/2024 10:56 AM EST CC: Patient [...] for pneumonia or aspiration. Please clinically correlate. Curator Of Manuscripts: LEONARDO Transcribe Date/Time: Jul 31 2024 11:30A [...] Patient agreeable to treatment plan. Shanna Newton APRN.GRAVEL SCREENER documented in this encounterUniversity Hospitals Lake West Medical Center11-20-2024 NoteHNO ID: [id number] Author: MELITA LE LPN Service: ? Author Type: LICENSED NURSE Type: Progress Notes Filed: 07/22/2024 08:12 Note Text: Scan on 07/21/2024 4:53 PM by Jenna Garcias PA-C: [facility]Tri[facility]11-20-2024 History of Present illness Narrative* Melita Le LPN - 07/22/2024 8:11 AM EST Scan on 07/21/2024 4:53 PM by Jenna Garcias PA-C: Consultation - Pulmonary documented in this encounterUniversity Hospitals Lake West Medical Center11-14-2024 NoteHNO ID: [id number] Author: CHRISTINE PARKER RN Service: ? Author [...] more often than normal? No Based on skate shop attendant, the following disposition is advised: No symptoms or symptoms present, not severe. Routed to: No Action Needed PALOMA Education Provided this Outreach: No Pt reports she is doing ok and she is not having any new or worsening cdm concerns at this time. She will contact the office with any needs. Christine Parker RN July 16, 2024 3:26 [facility]11-14-2024 History of Present illness Narrative* Christine Parker [...] more often than normal? No Based on skate shop attendant, the following disposition is advised: No symptoms or symptoms present, not severe. Routed to: No Action Needed PALOMA Education Provided this Outreach: No Pt reports she is doing ok and she is not having any new or worsening cdm concerns at this time. She will contact the office with any needs. Christine Parker RN July 16, 2024 3:26 PM documented in this encounterUniversity Hospitals Lake West Medical Center11-14-2024 NotePatient Outreach ([facility]) DIONY RAMIREZ ([id number]) 1955 F Date Time Provider Department 07/16/24 [facility] During your visit today, we recorded the [...] more often than normal? 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 Patient should continue with annual screenings. documented in this encounterUniversity Hospitals Lake West Medical Center10-31-2024 Telephone encounter Note * Telephone Encounter - Alex Brown APRN.CNP - 07/02/2024 9:26 AM EDT Please let patient know her mammogram is negative. Patient should continue with annual screenings. [facility]10-30-2024 History of Present illness Narrative* Destini Chavarria [...] PATIENT PRESENTS WITH AN IMPLANTABLE OR ATTACHED LOCKSTITCH TOPSTITCHER: No RADIOLOGY DEPARTMENT: Mammography PERIPHERAL IV DATA: Not applicable SIGNED BY: Destini Chavarria [employer] Uriah July 01, 2024 11:20 AM documented in this encounterUniversity Hospitals Lake West Medical Center10-17-2024 History of Present illness Narrative* Christine Parker RN - 06/18/2024 9:36 AM EDT [facility] Telephonic Outreach Provider Action/FYI 2nd attempt Contacted for: Routine Telephonic Outreach Contact made with patient: No, left message. Christine Parker RN June 18, 2024 9:51 AM documented in this encounterUniversity Hospitals Lake West Medical Center10-16-2024 History of Present illness Narrative* Christine Parker RN - 06/17/2024 2:12 PM EDT [facility] Telephonic Outreach Provider Action/FYI 1st attempt Contacted for: Routine Telephonic Outreach Contact made with patient: No, left message. Christine Parker RN June 17, 2024 2:18 PM documented in this encounterUniversity Hospitals Lake West Medical Center10-09-2024 Telephone encounter Note * Telephone Encounter - Neyda Mccartney MA - 06/10/2024 9:47 AM EDT Patient notified. Neyda Mccartney MA\ [facility]10-09-2024 Miscellaneous Notes* Telephone Encounter - Neyda Mccartney [...] medication. Please advise patient. documented in this encounterUniversity Hospitals Lake West Medical Center10-09-2024 Telephone encounter Note * Telephone Encounter - Shanna Newton APRN.LUIS FELIPE - 06/10/2024 9:37 AM EDT Let patient know that I called in a cough syrup for her. I apologize that it was not called in yesterday. [facility]10-09-2024 Telephone encounter Note* Telephone Encounter - Good [...] and takes BP medication. Please advise patient. [facility]10-06-2024 History of Present illness Narrative* Shanna Newton APRN.GRAVEL SCREENER - 06/07/2024 11:20 AM EDT CC: Patient [...] Shanna Newton APRN.LUIS FELIPE documented in this encounterUniversity Hospitals Lake West Medical Center10-04-2024 Telephone encounter Note * Telephone Encounter - Angelina Paul LPN - 06/05/2024 1:12 PM EDT Pt Is currently with her PCP for urine issue. Angelina Paul LPN [facility]10-04-2024 Miscellaneous Notes* Telephone Encounter - Angelina Paul [...] OV on Saturday. Please advise patient at [phone]. Thank you. documented in this encounterUniversity Hospitals Lake West Medical Center10-04-2024 History of Present illness Narrative* Rito Camp [...] Elevated blood sugar 01/27/2021 Emphysema of lung ([facility]) 03/18/2015 Essential hypertension, benign 02/21/2015 Ex-smoker 01/27/2021 [...] improving. Rito Camp MD documented in this encounterUniversity Hospitals Lake West Medical Center10-04-2024 Telephone encounter Note * Telephone Encounter - Shanna Newton APRN.CNP - 06/05/2024 11:59 AM EDT Call patient let her know that she only had 10-50,000 of mixed microbiota. This is not a significant bacteria for urine culture. Patient should either follow-up with primary care or be retested for another urine. [facility] Work Phone: [phone] Telephone encounter Note* Telephone Encounter - Joana Au RN - 06/05/2024 11:48 AM EDT Patient requesting [facility] to advise on her recent urine culture results, when able. Reports her urinary sx's remain the same as OV on Saturday. Please advise patient at [phone]. Thank you. [facility]10-02-2024 History of Present illness Narrative* Mary Ann Dukes APRN.CNP - 06/03/2024 10:17 AM EDT This note was created using [employer] Technologiesriter. Subjective Diony Ramirez is a 69 year [...] history is provided by the patient. No assistant speech language pathologist was used. UTI This is a new [...] with plan Tyra Henry Student TEACHING PROVIDER (Physician/PA/APPLICATION PACKAGER) NOTE OF PERSONAL INVOLVEMENT IN CARE: I have personally seen and examined the patient and performed the medical decision-making components. I have reviewed the Advanced Practice Registered Nurse (APPLICATION PACKAGER) Student's documentation and verified the findings in the note as written. Any additions or changes are noted in bold/italics. Signature: Mary Ann Dukes Date: 06/03/2024 Time: 11:06 AM documented in this encounterUniversity Hospitals Lake West Medical Center09-05-2024 History of Present illness Narrative* Christine Parker [...] more often than normal? No Based on skate shop attendant, the following disposition is advised: No symptoms [...] 07, 2024 9:47 AM documented in this encounterUniversity Hospitals Lake West Medical Center09-04-2024 History of Present illness Narrative* Christine Parker RN - 05/06/2024 11:48 AM EDT [facility] Telephonic Outreach Provider Action/FYI 1st attempt Contacted for: Routine Telephonic Outreach Contact made with patient: No, left message. Christine Parker RN May 06, 2024 11:50 AM documented in this encounterUniversity Hospitals Lake West Medical Center08-28-2024 Telephone encounter Note * Telephone Encounter - Fannie Centeno LPN - 04/29/2024 11:17 AM EDT Spoke with pt and information listed below given. Pt verbalizes understanding. Fannie Centeno LPN [facility]08-28-2024 Miscellaneous Notes* Telephone Encounter - Fannie Centeno LPN - 04/29/2024 11:17 AM EDT Spoke with pt and information listed below given. Pt verbalizes understanding. Fannie Centeno LPN * Telephone Encounter - Aury Newton MA - 04/27/2024 1:39 PM EDT Left message for patient to contact office. Aury Newton MA * Telephone Encounter - Alex Brown APRN.GRAVEL SCREENER - 04/27/2024 1:22 PM EDT Please let patient know her MRI does not show any rotator cuff injury but does show tendinosis. I have ordered pT. * Telephone Encounter - Cami Kidd MA - 04/14/2024 11:37 AM EDT Pt notified and verbalized understanding Cami Kidd MA * Telephone Encounter - Alex Brown APRN.CNP - 04/14/2024 11:24 AM EDT Please let patient know their xray is negative for fracture. documented in this encounterUniversity Hospitals Lake West Medical Center08-26-2024 Telephone encounter Note * Telephone Encounter - [...] Newton MA April 27, 2024 2:13 PM [facility]08-26-2024 Miscellaneous Notes* Telephone Encounter - Aury Newton [...] 27, 2024 2:05 PM documented in this encounterUniversity Hospitals Lake West Medical Center08-26-2024 Telephone encounter Note * Telephone Encounter - [...] Angella Kirkland April 27, 2024 2:05 PM [facility] Work Phone: [phone] Telephone encounter Note* Telephone Encounter - Aury Newton MA - 04/27/2024 1:39 PM EDT Left message for patient to contact office. Aury Newton MA [facility]08-26-2024 Telephone encounter Note* Telephone Encounter - Alex Brown APRN.CNP - 04/27/2024 1:22 PM EDT Please let patient know her MRI does not show any rotator cuff injury but does show tendinosis. I have ordered pT. [facility]08-23-2024 History of Present illness Narrative* Angella Bell CT - 04/24/2024 9:20 AM EDT Radiology [...] PATIENT PRESENTS WITH AN IMPLANTABLE OR ATTACHED LOCKSTITCH TOPSTITCHER: No RADIOLOGY DEPARTMENT: MR; Exam(s) Completed: Upper MSK: Shoulder, left PERIPHERAL IV DATA: Not applicable SIGNED BY: ZARI Batista April 24, 2024 9:39 AM documented in this encounterUniversity Hospitals Lake West Medical Center08-19-2024 Telephone encounter Note * Telephone Encounter - Good Silva RN [...] agreeable to call back if condition worsens. [facility]08-19-2024 Miscellaneous Notes* Telephone Encounter - Good Silva [...] back if condition worsens. documented in this encounterUniversity Hospitals Lake West Medical Center08-13-2024 Telephone encounter Note * Telephone Encounter - Cami Kidd MA - 04/14/2024 11:37 AM EDT Pt notified and verbalized understanding Cami Kidd MA [facility]08-13-2024 Telephone encounter Note* Telephone Encounter - Alex Brown APRN.CNP - 04/14/2024 11:24 AM EDT Please let patient know their xray is negative for fracture. [facility]08-13-[facility] History of Present illness Narrative* Myriam Bates RT(R) - 04/14/2024 10:20 AM EDT Radiology Service [...] PATIENT PRESENTS WITH AN IMPLANTABLE OR ATTACHED LOCKSTITCH TOPSTITCHER: No RADIOLOGY DEPARTMENT: General X-ray: Exam(s) Completed: Chest X-Ray PERIPHERAL IV DATA: Not applicable SIGNED BY: RT Liz(R) April 14, 2024 10:38 AM documented in this encounterUniversity Hospitals Lake West Medical Center08-13-2024 Instructions* Patient Instructions* Alex Brown APRN.CNP - 04/14/2024 10:01 AM EDT Take 600 mg Ibuprofen every 8 hours as needed and Tylenol 1000 mg every 8 hours as needed, alternating every 4 hours. Continue to ice area 20 minutes on every hour as needed. documented in this encounterUniversity Hospitals Lake West Medical Center08-13-2024 History of Present illness Narrative* Alex Brown APRN.CNP - 04/14/2024 9:52 AM EDT Chief Complaint [...] - XR CHEST 2V FRONTAL/LA Alex Brown APRN.GRAVEL SCREENER documented in this encounterUniversity Hospitals Lake West Medical Center08-06-2024 History of Present illness Narrative* Christine Parker RN - 04/07/2024 9:59 AM EDT [facility] Telephonic Outreach Provider Action/FYI [...] more often than normal? No Based on skate shop attendant, the following disposition is advised: No symptoms [...] will contact the office with any needs. Sdoh updated Christine Parker RN April 07, 2024 10:09 AM documented in this encounterUniversity Hospitals Lake West Medical Center08-05-2024 History of Present illness Narrative* Christine Parker RN - 04/06/2024 3:13 PM EDT [facility] Telephonic Outreach Provider Action/FYI 1st attempt Contacted for: Routine Telephonic Outreach Contact made with patient: No, left message. Christine Parker RN April 06, 2024 3:28 PM documented in this encounterUniversity Hospitals Lake West Medical Center07-25-2024 History of Present illness Narrative* Alex Brown APRN.CNP - 03/26/2024 11:39 AM EDT Chief Complaint [...] CONTRAST (RADIOLOGY PROCEDURE) - CONSULT TO ORTHOPAEDICS Alex Brown APRN.GRAVEL SCREENER documented in this encounterUniversity Hospitals Lake West Medical Center07-17-2024 History of Present illness Narrative* Myriam Bates RT(R) - 03/18/2024 11:00 AM EDT Radiology [...] PATIENT PRESENTS WITH AN IMPLANTABLE OR ATTACHED LOCKSTITCH TOPSTITCHER: No RADIOLOGY DEPARTMENT: General X-ray: Exam(s) Completed: Upper Extremity X- Ray(s): Shoulder, AP / TRUE AP / AXILLARY left and Clavicle, left PERIPHERAL IV DATA: Not applicable SIGNED BY: RT Liz(R) March 18, 2024 10:58 AM documented in this encounterUniversity Hospitals Lake West Medical Center07-17-2024 History of Present illness Narrative* RyanlogSweetie garcia APRN.GRAVEL SCREENER - 03/18/2024 10:43 AM EDT 03/18/2024 Patient [...] Elevated blood sugar 01/27/2021 Emphysema of lung ([facility]) 03/18/2015 Essential hypertension, benign 02/21/2015 Ex-smoker 01/27/2021 [...] OR MORE AP/TRUE AP/OTHER LEFT Sweetie Romeo APRN.GRAVEL SCREENER Prescription instructions reviewed with patient as applicable. [...] Level: 3 - Low documented in this encounterUniversity Hospitals Lake West Medical Center07-15-2024 Telephone encounter Note * Telephone Encounter - [...] Ruth Kirkland March 16, 2024 8:23 AM [facility]07-15-2024 Miscellaneous Notes* Telephone Encounter - Ruth Foster [...] 16, 2024 8:23 AM documented in this encounterUniversity Hospitals Lake West Medical Center07-10-2024 History of Present illness Narrative* Ashleigh Johnson MA - 03/11/2024 3:44 PM EDT POPULATION HEALTH NAVIGATION OUTREACH Action/FYI CDM PCP appt for bruising on the Left wrist Left VM; Clipcopiahart message sent Postponed 2 days Reason for [...] more often than normal? No Based on skate shop attendant, the following disposition is advised: No symptoms [...] for years and she has seen a Car Stower for it who told her it was [...] 11, 2024 3:26 PM documented in this encounterUniversity Hospitals Lake West Medical Center06-12-2024 History of Present illness Narrative* Christine Parker RN - 02/12/2024 12:06 PM EDT [facility] Telephonic Outreach Provider Action/FYI Contacted for: Routine [...] more often than normal? No Based on skate shop attendant, the following disposition is advised: No symptoms or symptoms present, not severe. Routed to: No Action Needed PALOMA Education Provided this Outreach: No Pt reports she is doing ok and she is not having any new or worsening cdm concerns at this time. She will contact the office with any needs. Christine Parker RN February 12, 2024 12:06 PM documented in this encounterUniversity Hospitals Lake West Medical Center05-15-2024 History of Present illness Narrative* Christine Parker RN - 01/15/2024 9:03 AM EDT [facility] Telephonic Outreach Provider Action/FYI Contacted for: Routine [...] more often than normal? No Based on skate shop attendant, the following disposition is advised: No symptoms [...] 15, 2024 9:04 AM documented in this encounterUniversity Hospitals Lake West Medical Center05-14-2024 History of Present illness Narrative* Christine Parker RN - 01/14/2024 12:41 PM EDT [facility] Telephonic Outreach Provider Action/FYI 1st attempt Contacted for: Routine Telephonic Outreach Contact made with patient: No, left message. Christine Parker RN January 14, 2024 12:41 PM documented in this encounterUniversity Hospitals Lake West Medical Center05-02-2024 History of Present illness Narrative* Kami Salas MA - 01/02/2024 10:46 AM EDT View External Imaging - CT Scan [ID [id number]] documented in this encounterUniversity Hospitals Lake West Medical Center05-01-2024 Telephone encounter Note * Telephone Encounter - Kasey Becker LPN - 01/01/2024 9:13 AM EDT Patient returned call and went over results, notes from Dr Camp with understanding. [facility]05-01-2024 Miscellaneous Notes* Telephone Encounter - Kasey Becker [...] of heart was ok documented in this encounterUniversity Hospitals Lake West Medical Center05-01-2024 Telephone encounter Note * Telephone Encounter - Aury Newton MA - 01/01/2024 8:23 AM EDT Left message for patient to contact office. Aury Newton MA [facility]04-30-2024 Telephone encounter Note* Telephone Encounter - Rito Camp MD - 12/31/2023 8:50 PM EDT Let patient know US of heart was ok [facility]04-22-2024 Telephone encounter Note* Telephone Encounter - Good Silva RN - 12/23/2023 2:48 PM EDT Patient phoned looking for CXR results. States she is not good at her MC. Given provider's message below with verbalized understanding. [facility]04-22-2024 Miscellaneous Notes* Telephone Encounter - Good Silva RN - 12/23/2023 2:48 PM EDT Patient phoned looking for CXR results. States she is not good at her MC. Given provider's message below with verbalized understanding. documented in this encounterUniversity Hospitals Lake West Medical Center04-22-2024 History of Present illness Narrative* Fina Farias [...] PATIENT PRESENTS WITH AN IMPLANTABLE OR ATTACHED LOCKSTITCH TOPSTITCHER: No RADIOLOGY DEPARTMENT: General X-ray: Exam(s) Completed: Chest X-Ray PERIPHERAL IV DATA: Not applicable SIGNED BY: RT Vega(R) December 23, 2023 10:49 AM documented in this encounterUniversity Hospitals Lake West Medical Center04-22-2024 History of Present illness Narrative* Mary Ann Dukes APRN.CNP - 12/23/2023 10:00 AM EDT This note [...] history is provided by the patient. No assistant speech language pathologist was used. Cough This is a new [...] Elevated blood sugar 01/27/2021 Emphysema of lung ([facility]) 03/18/2015 Essential hypertension, benign 02/21/2015 Ex-smoker 01/27/2021 [...] up with PCP for same Mary Ann Dukes APRN.GRAVEL SCREENER documented in this encounterHenry [place] [address]-21-2024 History of Present illness Narrative* Teresa Handley PA-C - 12/22/2023 10:44 AM EDT This note was created using [employer] Technologiesriter. Subjective Diony Ramirez is a 68 year [...] Elevated blood sugar 01/27/2021 Emphysema of lung ([facility]) 03/18/2015 Essential hypertension, benign 02/21/2015 Ex-smoker 01/27/2021 [...] agreeable.. Teresa Handley PA-C documented in this encounterUniversity Hospitals Lake West Medical Center04-16-2024 History of Present illness Narrative* Christine Parker RN - 12/17/2023 12:11 PM EDT [facility] Telephonic Outreach Provider Action/FYI 2nd attempt Contacted for: Routine Telephonic Outreach Contact made with patient: No, left message. Christine Parker RN December 17, 2023 12:12 PM documented in this encounterUniversity Hospitals Lake West Medical Center04-15-2024 History of Present illness Narrative* Christine Parker RN - 12/16/2023 3:04 PM EDT [facility] Telephonic Outreach Provider Action/FYI 1st attempt Contacted for: Routine Telephonic Outreach Contact made with patient: No, left message. Christine Parker RN December 16, 2023 3:04 PM documented in this encounterUniversity Hospitals Lake West Medical Center03-18-2024 History of Present illness Narrative* Christine Parker [...] more often than normal? No Based on skate shop attendant, the following disposition is advised: No symptoms or symptoms present, not severe. Routed to: No Action Needed PALOMA Education Provided this Outreach: No Pt reports she is doing fine and she is not having any new or worsening cdm concerns at this time. She will contact the office with any needs. Christine Parker RN November 18, 2023 3:29 PM documented in this encounterUniversity Hospitals Lake West Medical Center03-08-2024 Miscellaneous Notes* Telephone Encounter - Rito Camp MD - 11/08/2023 10:59 AM EST Noted. * Telephone Encounter - Albania Gill RN - 11/08/2023 10:14 AM EST Janine from [facility] calls and state that patient had called them and was adamant that they order ct scan of chest. CT Scan of chest was ordered for patient. Patient wanted provider aware that testing was ordered so that provider did not order testing. Albania Gill RN documented in this encounterUniversity Hospitals Lake West Medical Center02-20-2024 History of Present illness Narrative* Christine Parker RN - 10/22/2023 9:42 AM EST [facility] Telephonic Outreach Provider Action/FYI 2nd attempt Contacted for: Routine Telephonic Outreach Contact made with patient: No, left message. Christine Parker RN October 22, 2023 9:42 AM documented in this encounterUniversity Hospitals Lake West Medical Center02-19-2024 History of Present illness Narrative* Christine Parker RN - 10/21/2023 2:58 PM EST [facility] Telephonic Outreach Provider Action/FYI 1st attempt Contacted for: Routine Telephonic Outreach Contact made with patient: No, left message. Christine Parker RN October 21, 2023 2:58 PM documented in this encounterUniversity Hospitals Lake West Medical Center02-14-2024 Miscellaneous Notes* Telephone Encounter - Melita Le [...] now. Shanita Green PA-C documented in this encounterUniversity Hospitals Lake West Medical Center02-13-2024 Miscellaneous Notes* Telephone Encounter - Elana Waller PSS - 10/15/2023 3:52 PM EST CD READY FOR LAUNDROMAT WORKER AT [facility] for pt * Telephone Encounter - Ramona Lundy - 10/15/2023 11:42 AM EST Patient is requesting copy of x-ray report and disc from 10/15/23. Please notify patient when ready for slat pickler. Instructed to retrieve items at [facility]. documented in this encounterUniversity Hospitals Lake West Medical Center02-13-2024 History of Present illness Narrative* James Brewer [...] PATIENT PRESENTS WITH AN IMPLANTABLE OR ATTACHED LOCKSTITCH TOPSTITCHER: No RADIOLOGY DEPARTMENT: General X-ray: Exam(s) Completed: Spine X-Ray(s): Cervical AP / LAT / OBL Upper Extremity X-Ray(s): Shoulder, AP / TRUE AP right Scapular Y view PERIPHERAL IV DATA: Not applicable SIGNED BY: RT Berry(R) October 15, 2023 9:36 AM documented in this encounterUniversity Hospitals Lake West Medical Center02-13-2024 History of Present illness Narrative* Shanita Green PA-C - 10/15/2023 8:49 AM EST Chief Complaint Patient presents with: right shoulder pain: X 2 weeks HPI Diony Ramirez is a 68 year old female who presents here today for Above Complaints.. Recently has been seen for low back pain. Was seen by wogianni and had MRI done. Is scheduled for [...] TABLET Shanita Green PA-C documented in this encounterUniversity Hospitals Lake West Medical Center02-05-2024 Miscellaneous Notes* Telephone Encounter - [place] Cindy Kirkland 10/07/2023 12:10 PM EST Patient has been identified by name and date of : Yes Requested Prescriptions Pending Prescriptions Disp Refills amLODIPine (NORVASC) 2.5 mg tablet 90 tablet 3 Sig: Take 1 tablet by mouth once daily. hydrOXYzine HCl (ATARAX) 10 mg tablet 90 tablet 3 Sig: Take 1 tablet by mouth daily at bedtime. RX INSTRUCTIONS: Patient is changing back to [facility]. Please send today. She requested 90 days with refills. Patient aware RX will be sent to pharmacy. No need to notify patient. Cindy Santizo [facility] documented in this encounterUniversity Hospitals Lake West Medical Center12-21-2023 History of Present illness Narrative* Christine Parker [...] more often than normal? No Based on skate shop attendant, the following disposition is advised: No symptoms [...] 22, 2023 10:39 AM documented in this encounterUniversity Hospitals Lake West Medical Center12-14-2023 History of Present illness Narrative* Myriam Bates RT(Renata) - 08/15/2023 12:10 PM EST Radiology Service [...] 15, 2023 12:10 PM documented in this encounterUniversity Hospitals Lake West Medical Center12-05-2023 History of Present illness Narrative* Evelio Jeancarlos, PT - 08/06/2023 2:34 PM EST Episode [...] 1112 Jeancarlos Fraser PT documented in this encounterUniversity Hospitals Lake West Medical Center11-30-2023 History of Present illness Narrative* Jeancarlos Fraser PT - 08/01/2023 2:43 PM EST Episode [...] Fraser PT - 07/29/2023 11:19 AM EST Program_ID:[id number] Access Code: [email or web address] URL: [email or web address] hospitalAgility [email or web address]/ Date: 07-29-2023 Prepared By: Jeancarlos Fraser Program [...] Patient Education - Lumbar Stenosis * Jeancarlos Fraser PT - 07/29/2023 11:18 AM EST Program_ID:[id number] Access Code: [email or web address] URL: [email or web address] hospitalFor[facility] [employer]/ Date: 07-29-2023 Prepared By: Jeancarlos Fraser Program [...] weekly - 3 - 10 - Supine October - 1 x daily - 7 x weekly - 3 - 10 Patient Education - Lumbar Stenosis documented in this encounterUniversity Hospitals Lake West Medical Center11-20-2023 History of Present illness Narrative* Kerrie Damian RN - 07/22/2023 11:30 AM EST [facility] Telephonic Outreach Provider Action/FYI Attempted to contact pt in regards to [facility] Home Monitoring program. LVM. Second attempt. Will outreach at next routine outreach x3-4 weeks. Contacted for: Routine Telephonic Outreach Contact made with patient: No, left message. Kerrie Damian RN July 22, 2023 11:45 AM documented in this encounterUniversity Hospitals Lake West Medical Center11-13-2023 History of Present illness Narrative* Jeancarlos Fraser, [...] Planned: 8 Planned Treatment Interventions: Therapeutic exercise (93402), Neuromuscular re- education (75732), Manual therapy (41227), Therapeutic activities (76360), Self- half-way management (99718), Patient/Family/Caregiver Education, Body Mechanics Training PLAN FOR [...] *Hooklying piriformis stretch 3x30 sec/side 4: Issued [employer] handout on spine stenosis Skilled Intervention: Patient [...] 904 Session Stop Time : 947 Jeancarlos Evelio, PT * Jeancarlos Frasre PT - 07/15/2023 9:46 AM EST Program_ID:[id number] Access Code: [email or web address] URL: [email or web address] hospitalForge Life Science/ Date: 07-15-2023 Prepared By: Jeancarlos Fraser Program [...] Patient Education - Lumbar Stenosis * Jeancarlos Fraser PT - 07/15/2023 9:45 AM EST Program_ID:[id number] Access Code: [email or web address] URL: [email or web address] Date: 07-15-2023 Prepared By: Jeancarlos Fraser Program [...] - 3 - 3 documented in this encounterUniversity Hospitals Lake West Medical Center10-26-2023 Miscellaneous Notes* Telephone Encounter - Rito Camp [...] Telephone Encounter - Aury Newton MA - 06/27/2023 3:03 PM EDT [...] 06/27/2023 2:41 PM EDT Pharmacy verified in [facility] Patient has been identified by name [...] Please advise. Angella Kirkland documented in this encounterUniversity Hospitals Lake West Medical Center10-20-2023 History of Present illness Narrative* Kerrie Damian [...] more often than normal? No Based on skate shop attendant, the following disposition is advised: No symptoms or symptoms present, not severe. Routed to: No Action Needed PALOMA Education Provided this Outreach: No Krerie Damian RN June 21, 2023 12:29 PM documented in this encounterUniversity Hospitals Lake West Medical Center10-20-2023 Miscellaneous Notes* Telephone Encounter - Melita Le LPN - 06/21/2023 9:31 AM EDT Pt notified of same. Melita Le LPN * Telephone Encounter - Alex Brown APRN.CNP - 06/20/2023 5:16 PM EDT Please let patient know her WBC count has returned to normal. documented in this encounterUniversity Hospitals Lake West Medical Center10-19-2023 Miscellaneous Notes* Telephone Encounter - Marli Zhang RN - 06/20/2023 3:44 PM EDT Pt called and is notified of providers results. Pt voices understanding. Marli Zhang RN * Telephone Encounter - Rito Camp MD - 06/20/2023 3:35 PM EDT Let patient know the repeat CBC was ok. documented in this encounterUniversity Hospitals Lake West Medical Center10-12-2023 History of Present illness Narrative* Toi Falcon MD - 06/13/2023 12:30 PM EDT HISTORY AND PHYSICAL Diony Alcantar Ashley 1955 REFERRING PHYSICIAN: Alex Brown APRN.* CHIEF COMPLAINT: Consult (S/p small bowel obstruction) HPI: The patient is a 68 year old female with a complaint of resolution of partial small bowel obstruction. Patient was admitted to [facility] on 05/31/2023. She has been having waxingand [...] entered by the nurse and reviewed by oh Nursing Notes: Bree Emmanuel LPN 06/11/2023 9:30 [...] Toi Falcon III, MD documented in this encounterUniversity Hospitals Lake West Medical Center10-10-2023 Miscellaneous Notes* Telephone Encounter - [place]ia Gill [...] axilla? Shanita Green PA-C documented in this encounterUniversity Hospitals Lake West Medical Center10-10-2023 Nurse Note* Bree Emmanuel LPN - 06/11/2023 [...] 2015 Bree Emmanuel LPN documented in this encounterUniversity Hospitals Lake West Medical Center10-07-2023 History of Present illness Narrative* Rito Camp [...] of lumbar spine 05/06/2014 Ectatic thoracic aorta ([facility]) 12/04/2022 CT done 12/2022 Elevated blood sugar 01/27/2021 Emphysema of lung ([facility]) 03/18/2015 Essential hypertension, benign 02/21/2015 Ex-smoker 01/27/2021 [...] improving Rito Camp MD documented in this encounterUniversity Hospitals Lake West Medical Center10-05-2023 Miscellaneous Notes* Telephone Encounter - Kami Salas [...] advise, Albania Gill RN documented in this encounterUniversity Hospitals Lake West Medical Center10-03-2023 History of Present illness Narrative* Alex Brown APRN.CNP - 06/04/2023 10:58 AM EDT Chief Complaint Patient presents with: Hospital F/U HPI Diony Ramirez is a 68 year old female who presents here today for Above Complaints.. Patient presents for hospital follow up. Patient was hospitalized with small bowel obstruction at [facility]. Patient was seen by surgery while inpatient [...] of lumbar spine 05/06/2014 Ectatic thoracic aorta ([facility]) 12/04/2022 CT done 12/2022 Elevated blood sugar 01/27/2021 Emphysema of lung ([facility]) 03/18/2015 Essential hypertension, benign 02/21/2015 Ex-smoker 01/27/2021 [...] - CONSULT TO GENERAL SURGERY Alex Brown APRN.GRAVEL SCREENER documented in this encounterUniversity Hospitals Lake West Medical Center10-02-2023 Miscellaneous Notes* Telephone Encounter - Albania Gill RN - 06/03/2023 11:20 AM EDT TRANSITION CARE MANAGEMENT (TCM) INITIAL CONTACT Pet Sitting Outreach Provider Action/FYI: Patient calls and wanted provider to know that she was admitted to [facility] on Saturday night with small bowel obstruction. [...] flowsheet data found. SUMMARY: -Pt discharged from [facility] on 06/02/2023. -Admitted for: Small Bowel Obstruction [...] recent hospitalization: Care Everywhere documented in this encounterUniversity Hospitals Lake West Medical Center10-01-2023 Progress note Author Jazz Collins [facility] June 02, 2023 10:33am Note Date/Time June 02, 2023 8: 58am [facility] Medical Records Department [address] [place] [address] Progress Note - Surgery 06/02/23 0857 MR#: [id number] Acct: [id number] Name: JENA RAMIREZ Rep #:[id number] : 1955 68 From: Jazz Collins MD PCP: Dr. Rito Camp MD Status:ADM IN [id number] Subjective Subjective + flatus, denies abd pain, [...] 06/01/23 11:54 AG (Rec: 06/01/23 11:54 AG [id number]) Nutrition Malnutrition Evidence of Malnutrition Exists Yes [...] 74.5 H, Lymph % (Auto) 12.6 L, Ross % (Auto) 10.5 H, Eos % (Auto) [...] 7:57 EDT Reading Location ID and State: [address] [place] [address] Tel , Service support , Physical Exam [...] agreeable w plan. Jazz Collins M.D. Pager: [phone] [facility] [address] [place] [address], [facility], [address] [place] [address] Office: [phone] Charges/Coding Visit Charges Inpatient E&M: 85445 Subs Hosp L2 06/02/23 1033 <Electronically signed by Jazz Collins MD> Cosigner Signature (if applicable): CC: ~ Signed [facility] Work Phone: 1(710) 748-613710-01-2023 Progress note Author Mick Pelletier [facility] June 02, 2023 9:03am Note Date/Time June 02, 2023 9: 03am [facility] Medical Records Department [address] [place] [id number] Progress Note - Hospitalist 06/02/23 0859 MR#: [id number] Acct: [id number] Name: JENA RAMIREZ Rep #:[id number] : 1955 68 From: Mick puckett MD PCP: Dr. Rito Camp MD Status:ADM IN Location: [facility] [id number] Subjective Subjective Still some abdominal pain, still [...] Document 06/01/23 11:54 AG (Rec: 06/01/23 11:54 [id number]) Nutrition Malnutrition Evidence of Malnutrition Exists Yes [...] 74.5 H, Lymph % (Auto) 12.6 L, Ross % (Auto) 10.5 H, Eos % (Auto) [...] DVT: SCDs Charges/Coding Visit Charges Inpatient E&M: 40448 Subs Hosp L2 06/02/23 0903 <Electronically signed by Mick Pelletier MD> Cosigner Signature (if applicable): CC: ~ Signed [facility] Work Phone: 1(913) 851-667309-30-2023 Consult note Author Jazz Collins [facility] June 01, 2023 8:39am Note Date/Time June 01, 2023 7:50am [facility] Medical Records Department [address] [place] [address] Consultation - Surgical 06/01/23 0750 MR#: [id number] Acct: [id number] Name: JENA RAMIREZ Rep #:[id number] : 1955 68 From: Jazz Collins MD PCP: Dr. Rito Camp MD Status:ADM IN Location: [place] [address] Assessment & Plan Assessment/Plan (1) SBO (small [...] quickly last time. Jazz Collins M.D. Pager: [phone] [facility] [address] [place] [address], [facility], [address] [place] [address] Office: [phone] HPI Consult Data Date of Consult: 06/01/23 [...] cell count admit was 13.8 currentlyis 11.7. [facility] Medical History Alcohol abuse Anxiety associated with [...] 76.5 H, Lymph % (Auto) 13.7 L, Ross % (Auto) 7.4, Eos % (Auto) 1.4, [...] Clarity Clear, Urine pH 7.0, Ur Specific [place] 1.010, Urine Protein Negative, Urine Glucose (UA) [...] (Auto) 84.7 H, Lymph % (Auto)8.4 L, Ross % (Auto) 5.7, Eos % (Auto) 0.3, [...] EDT , Charges/Coding Visit Charges Inpatient E&M: 69017 Init Hosp L3 06/01/23 0839 <Electronically signed by Jazz Collins MD> Cosigner Signature (if applicable): CC: Dr. Rito Camp MD; Dr. Boby Jordan MD; Dr. Jazz Collins MD~ Signed [facility] Work Phone: 1(650) 399-890209-30-2023 History and physical note Author Boby Jordan [facility] June 01, 2023 5:38am Note Date/Time June 01, 2023 12:53am [facility] Medical Records Department [address] [place] [address] H&P Exam - Hospitalist 06/01/23 0052 MR#: [id number] Acct: [id number] Name: JENA RAMIREZ Rep #:[id number] : 1955 68 From: Boby Jordan MD PCP: Dr. Rito Camp MD Status:ADM IN Location: [facility] [id number] HPI - General General Date of Admission: [...] ago when an NG tube was placed. [facility] Medical History Alcohol abuse Anxiety associated with [...] 76.5 H, Lymph % (Auto) 13.7 L, Ross % (Auto) 7.4, Eos % (Auto) 1.4, [...] Clarity Clear, Urine pH 7.0, Ur Specific [place] 1.010, Urine Protein Negative, Urine Glucose (UA) [...] documentation, 30minutes. Charges/Coding Visit Charges Inpatient E&M: 85688 Init Hosp L2 06/01/23 0538 <Electronically signed by Boby Jordan MD> Cosigner Signature (if applicable): CC: Dr. Rito Camp MD; Dr. Boby Jordan MD~ Signed [facility] Work Phone: 1(780) 448-638709-30-2023 Discharge summary Author Tyler Green [facility] June 01, 2023 12:41am Note Date/Time May 31, 2023 10:05pm [facility] Medical Records Department [address] [place] [address] Emergency Department Summary 05/31/23 MR#: [id number] Acct: [id number] Name: JENA RAMIREZ Rep #:[id number] : [...] mg/mL subcutaneous syringe (denosumab) 60 mg subcut [id number] #1 mL 02/25/23 [Rx Last Taken Unknown] [...] surgery, hospitalist This note was generated with Spinal Simplicityation software. It may contain incorrectwords, spelling, and [...] 76.5 H Lymph % (Auto) 13.7 L Ross % (Auto) 7.4 Eos % (Auto) 1.4 [...] Clarity Clear Urine pH 7.0 Ur Specific [place] 1.010 Urine Protein Negative Urine Glucose (UA) [...] Prolia 60 mg/mL syringe 60 mg subcut [id number] Qty: 1 1RF trazodone 100 MG tablet [...] Provider] - Disposition Disposition: Acute Care Hospital [facility] What to do if you have Problems For any increased pain, shortness of breath, bleeding, nausea or vomiting, chestpain, or any unexpected problems, contact your Primary Care Provider. Call [facility] ([phone]) or report to the closest Emergency Room. Call 911 if necessary. 06/01/23 0041 <Electronically signed by Tyler Faria> Cosigner Signature (if applicable): CC: Dr. Rito Camp MD ~ Signed [facility] Work Phone: [phone] 305-721709-30-2023 Discharge summary Author Tyler Green [facility] June 01, 2023 12:41am Note Date/Time May 31, 2023 10:05pm [facility] Medical Records Department [address] [place] [id number] Emergency Department Summary 05/31/23 MR#: [id number] Acct: [id number] Name: JENA RAMIREZ Rep #:[id number] : [...] mg/mL subcutaneous syringe (denosumab) 60 mg subcut [id number] #1 mL 02/25/23 [Rx Last Taken Unknown] [...] surgery, hospitalist This note was generated with Brandtone dictation software. It may contain incorrectwords, spelling, [...] 76.5 H Lymph % (Auto) 13.7 L Ross % (Auto) 7.4 Eos % (Auto) 1.4 [...] Clarity Clear Urine pH 7.0 Ur Specific [place] 1.010 Urine Protein Negative Urine Glucose (UA) [...] Prolia 60 mg/mL syringe 60 mg subcut [id number] Qty: 1 1RF trazodone 100 MG tablet [...] MD [Primary Care Provider] - Disposition Disposition: [facility] What to do if you have Problems For any increased pain, shortness of breath, bleeding, nausea or vomiting, chestpain, or any unexpected problems, contact your Primary Care Provider. Call [facility] ([phone]) or report to the closest Emergency Room. Call 911 if necessary. 06/01/23 0041 <Electronically signed by Tyler Faria> Cosigner Signature (if applicable): CC: Dr. Rito Camp MD ~ Signed [facility] Work Phone: [phone] Miscellaneous Notes* Telephone Encounter - Maliha Fregoso [...] today) Melita Le LPN documented in this encounterUniversity Hospitals Lake [facility] Center08-15-2023 Miscellaneous Notes* Telephone Encounter - Melita Le [...] notify patient. 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 documented in this encounterUniversity Hospitals Lake West Medical Center07-06-2023 Miscellaneous Notes* Telephone Encounter - Rito Camp [...] Refills: 1 * Telephone Encounter - Liz Mackenzie [facility] - 03/07/2023 1:06 PM EDT Diony Ramirez is calling Rito Camp MD today to request a medication that does not appearon current medication list . Trazadone 150 mg takes 1 once daily at bedtime Please send to [facility] for 90 days with refills Patient has been identified by name and birthdate. Duration of symptoms: N/A Person calling: self Call patient at: on cell [phone] (cell) Was an appointment scheduled: No Closing statement: Results or non-symptom based questions: Thank you for calling [facility], your call will be returned within the next business day. Liz Mackenzie [facility] documented in this encounterUniversity Hospitals Lake West Medical Center06-30-2023 Miscellaneous Notes* Telephone Encounter - CHETAN Holt [...] to please advise patient. documented in this encounterUniversity Hospitals Lake West Medical Center06-29-2023 History of Present illness Narrative* Kerrie Damian [...] more often than normal? No Based on skate shop attendant, the following disposition is advised: No symptoms or symptoms present, not severe. Routed to: No Action Needed PALOMA Education Provided this Outreach: No Kerrie Damian RN February 28, 2023 4:07 PM documented in this encounterUniversity Hospitals Lake West Medical Center06-29-2023 History of Present illness Narrative* Kerrie Damian RN - 02/28/2023 3:55 PM EDT Opened in error documented in this encounterUniversity Hospitals Lake West Medical Center06-28-2023 Miscellaneous Notes* Telephone Encounter - Albania Gill RN - 02/27/2023 12:45 PM EDT Patient notified of results and provider's instructions. Patient verbalizes understanding. Albania Gill RN * Telephone Encounter - Shanita Green PA-C - 02/27/2023 12:18 PM EDT Let patient know that her platelet count has improved. Iron levels are normal. Recheck cbc in 1 month. Shanita Green PA-C documented in this encounterUniversity Hospitals Lake West Medical Center06-27-2023 History of Present illness Narrative* Melita Le LPN - 02/26/2023 2:59 PM EDT Scan on 02/25/2023 10:17 AM by External Provider, MU: Consultation - Endocrinology documented in this encounterUniversity Hospitals Lake West Medical Center06-27-2023 Miscellaneous Notes* Telephone Encounter - Cami Kidd Cma - 02/26/2023 1:58 PM EDT Patient notified and verbalized understanding Cami Kidd Cma * Telephone Encounter - Alex Brown APRN.CNP - 02/26/2023 12:54 PM EDT Please let patient know her CT is normal. documented in this encounterUniversity Hospitals Lake West Medical Center06-27-2023 History of Present illness Narrative* Charleen Linda, [...] 2023 TIME: 12:35 PM documented in this encounterUniversity Hospitals Lake West Medical Center06-22-2023 Miscellaneous Notes* Telephone Encounter - Maliha Fregoso [...] counts. Shanita Green PA-C documented in this encounterUniversity Hospitals Lake West Medical Center06-21-2023 Instructions* Patient Instructions* Shanita Green PA-C - 02/20/2023 8:42 AM EDT Taper off of the trazodone to see how you do with hydroxyzine on it's own for sleep. Take 1/2 tablet of trazodone x 1 week and then stop. documented in this encounterUniversity Hospitals Lake West Medical Center06-21-2023 History of Present illness Narrative* Shanita Green PA-C - 02/20/2023 8:29 AM EDT Chief Complaint Patient presents with: Recheck: Blood pressure HPI Diony Ramirez is a 67 year old female who presents here today for multiple concerns. Patient reports headaches for the past week. Was having sinus issues too but those improved. [place] like BP at home as been elevated [...] results Shanita Green PA-C documented in this encounterUniversity Hospitals Lake West Medical Center06-16-2023 Instructions* Patient Instructions* Alex Brown APRN.CNP - 02/15/2023 9:53 AM EDT Start hydroxyzine, cetirizine, fluticasone Schedule with allergy documented in this encounterUniversity Hospitals Lake West Medical Center06-16-2023 History of Present illness Narrative* Alex Brown [...] - IV CONTRAST (RADIOLOGY PROCEDURE) Alex Brown APRN.GRAVEL SCREENER documented in this encounterUniversity Hospitals Lake West Medical Center05-08-2023 History of Present illness Narrative* Ruth Denton RN - 01/07/2023 1:21 PM EDT [facility] Telephonic Outreach Provider Action/FYI Made call #2. NA/Left vm. Left H@H reminder. Contacted for: Routine Telephonic Outreach Contact made with patient: No, left message. Ruth Denton RN January 07, 2023 1:23 PM * Ruth Denton RN - 01/03/2023 1:19 PM EDT [facility] Telephonic Outreach Provider Action/FYI Made call #1. NA/left vm. Contacted for: Routine Telephonic Outreach Contact made with patient: No, left message. Ruth Denton RN January 07, 2023 1:21 PM documented in this encounterUniversity Hospitals Lake West Medical Center05-01-2023 Miscellaneous Notes* Telephone Encounter - Elizabeth Eckert [...] review. Elizabeth Eckert LPN documented in this encounterUniversity Hospitals Lake West Medical Center04-18-2023 History of Present illness Narrative* Myriam Bates, RT(R) - 12/18/2022 9:30 AM EDT Radiology [...] 18, 2022 9:49 AM documented in this encounterUniversity Hospitals Lake West Medical Center04-07-2023 History of Present illness Narrative* Ruth Denton [...] like to speak with a social work steam drier tender to help give you support for any [...] you up for automated weekly questionnaires through [employer]. This is an easy way for us [...] PtOutreach and End outreach. documented in this encounterUniversity Hospitals Lake West Medical Center04-05-2023 Miscellaneous Notes* Telephone Encounter - Marli Zhang [...] CT of her abd/pelvis. documented in this encounterUniversity Hospitals Lake West Medical Center04-05-2023 Miscellaneous Notes* Telephone Encounter - Angella Santiago Pss - 12/05/2022 11:35 AM EDT Diony is asking for 90 day scripts with 3 refills. Pended meds have been changed to reflect that request. Please review and send as appropriate. * Telephone Encounter - Angella Santiago Pss - 12/05/2022 11:34 AM EDT Pharmacy verified in [facility] Patient has been identified by name [...] advise. Angella Santiago Pss documented in this encounterUniversity Hospitals Lake West Medical Center04-03-2023 History of Present illness Narrative* Mary Ann [...] 03, 2022 9:40 AM documented in this encounterUniversity Hospitals Lake West Medical Center04-03-2023 History of Present illness Narrative* Charleen Linda RT(R) - 12/03/2022 8:00 AM EDT Radiology Service [...] 03, 2022 3:29 PM documented in this encounterUniversity Hospitals Lake West Medical Center03-21-2023 Miscellaneous Notes* Telephone Encounter - Mitzy Jacobson LPN - 11/20/2022 3:15 PM EDT Pt notified of results. Mitzy Jacobson LPN * Telephone Encounter - Shanita Green PA-C - 11/20/2022 2:43 PM EDT Thyroid levels are normal. Shanita Green PA-C documented in this encounterUniversity Hospitals Lake West Medical Center03-20-2023 Instructions* Patient Instructions* Rito Camp MD - 11/19/2022 10:38 AM EDT Please go to [facility] and ask for a copy of your Chest CT done May 2022 placed onto a disc. When you come into [facility] for your chest CT bring the disc with you and give to radiology so it can be up loaded into the system. documented in this encounterUniversity Hospitals Lake West Medical Center03-20-2023 History of Present illness Narrative* Rito Camp [...] shortness of breath. When she was in [place] she had a cough that has bene [...] Lymph 1.00 - 4.00 k/uL 1.80 1.90 Ross% % 7.8 10.1 Abs Ross <0.87 k/uL 0.93 (H) 0.88 (H) Eosin% [...] - check CT chest without contrast at [facility] w 3. Multiple thyroid nodules - ICD9: [...] which included preparing to see the patient, [id number] patient care, completing clinical documentation, performing a medically appropriate examination, counseling and educating the patient/family/caregiver and ordering medications, tests, or procedures. Rito Camp MD documented in this encounterUniversity Hospitals Lake West Medical Center03-17-2023 Miscellaneous Notes* Telephone Encounter - Rito Camp MD - 11/16/2022 12:44 PM EDT Let patient know her DXA scan shows worsening of her osteoporosis. See if willing to meet with endocrine to determine next best coarse of action. Discussed her DXA scan results at her visit on 11/19/2022. documented in this encounterUniversity Hospitals Lake West Medical Center03-14-2023 History of Present illness Narrative* Bashir Landa [...] 13, 2022 9:26 AM documented in this encounterUniversity Hospitals Lake West Medical Center03-13-2023 History of Present illness Narrative* Ruth Denton [...] had covid X 2. Pt was in [place] a couple weeks ago and wonders if this may be related to the RED TIDE. Offered a virtualist visit today. Pt denies need. States she has a PCP visit with GRAVEL SCREENER on November 19. Advised if any escalating [...] like to speak with a social work steam drier tender to help give you support for any [...] you up for automated weekly questionnaires through [employer]. This is an easy way for us [...] PtOutreach and End outreach. documented in this encounterUniversity Hospitals Lake West Medical Center03-07-2023 Miscellaneous Notes* Telephone Encounter - Ainsley Del Valle Ma - 11/06/2022 9:12 AM EST Patient notified and verbalized understanding Ainsley Del Valle Ma * Telephone Encounter - Rito Camp MD - 11/05/2022 8:58 PM EST Let patient know repeat CBC was ok. 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 She watches her diet for sodium, low fat and low cholesterol some of the time. List of current specialists seen: - Dr. Suleman Gustafson (Pul) - Dr. Shore (Urology) - optho End of Live Planning discussed including patients advanced directive wishes: Yes I am willing to follow [employer]'s advanced directives. PHQ-2 / Depression screen Depression [...] Lymph 1.00 - 4.00 k/uL 2.03 1.80 Ross% % 10.1 7.8 Abs Ross <0.87 k/uL 0.75 0.93 (H) Eosin% % [...] Negative Ketones, Urine Trace, Negative Negative Specific [place], Ur 1.005 - 1.030 1.017 Hemoglobin/Blood,Ur Negative, [...] which included preparing to see the patient, [id number] patient care, completing clinical documentation, performing a medically appropriate examination, counseling and educating the patient/family/caregiver and ordering medications, tests, or procedures. Rito Camp MD documented in this encounterUniversity Hospitals Lake West Medical Center01-16-2023 History of Present illness Narrative* Kami Hunter RN - 09/17/2022 12:44 PM EST INSIGHT CD TELEPHONIC OUTREACH Provider Action/FYI: Patient returned call to this nurse. Patient reports she is doing good, states she is leaving for [place] 10/01 and will be back the first october. Patient has no questions, concerns, needs at [...] like to speak with a social work steam drier tender to help give you support for any [...] you up for automated weekly questionnaires through [employer]. This is an easy way for us [...] my name is Kami Hunter RN your Airframe And Powerplant Mechanic from the [facility] I am calling today for your bi-weekly check in. I am sorry I missed your call. I will reach out to you again tomorrow. (if the third call I will reach out to you again next week) Enter next patient outreach date for the following using the Track Pt Outreach. End outreach. documented in this encounterUniversity Hospitals Lake West Medical Center01-11-2023 Miscellaneous Notes* Telephone Encounter - Aury Newton MA - 09/12/2022 11:12 AM EST Change appointment and contacted patient left detailed message for patient. Aury Newton MA * Telephone Encounter - Rito Camp MD - 09/12/2022 10:15 AM EST Please change her appt into 40 min since it should be a complete PE. Labs placed. * Telephone Encounter - Leslye Klein 09/12/2022 8:34 AM EST PT is requesting full blood work before her appointment on 09-27-21, please advise and assist. Leslye PSS documented in this encounterUniversity Hospitals Lake West Medical Center12-27-2022 Miscellaneous Notes* Telephone Encounter - Fannie Centeno [...] Thank you. Bushra Orozco documented in this encounterUniversity Hospitals Lake West Medical Center12-16-2022 Miscellaneous Notes* Telephone Encounter - Rito Camp [...] and advise. Angella Ulrich documented in this encounterUniversity Hospitals Lake West Medical Center12-13-2022 History of Present illness Narrative* Angella Ulrich - 08/14/2022 3:56 PM EST Pt called back. She would like to keep the appt as it is scheduled. She thought she was going out of town but she is in town still on the scheduled date. * Ainsley Gutierrez MA - 08/14/2022 3:46 PM EST POPULATION HEALTH NAVIGATION OUTREACH Action/FYI August 14, 2022 Attempted to reach patient to assist with rescheduling her upcoming appointment. No answer, left message for her to return call for scheduling assistance. Thank you Pt identified by name and : NO Outreach Outcome/Action Unable to reach patient: Left message Did you use a PCP flex slot to schedule this appointment? N/A Reason for Outreach [facility] Payer: Payor: [employer] / Plan: [employer] HMO / Product Type: HMO / Care [...] like to speak with a social work steam drier tender to help give you support for any [...] you up for automated weekly questionnaires through [employer]. This is an easy way for us [...] PtOutreach and End outreach. documented in this encounterUniversity Hospitals Lake West Medical Center11-30-2022 Miscellaneous Notes* Letter - Mammography Coordinator - 08/01/2022 6:14 PM EST August 01, 2022 PID: [id number] Diony Ramirez [address] [place] [id number] Dear Ms. Ramirez, We are pleased to [...] report will be kept on file at [facility] as part of your permanent medical record and are available for your continuing care. Thank you for allowing us to help in meeting your health care needs. Sincerely, Dr. Ozuna Interpreting Radiologist [facility] (Normal over 40) documented in this encounterUniversity Hospitals Lake West Medical Center11-29-2022 History of Present illness Narrative* Marixa Ortiz [...] 31, 2022 9:05 AM documented in this encounterUniversity Hospitals Lake West Medical Center11-29-2022 History of Present illness Narrative* Ashleigh Negrete APRN.LUIS FELIPE - 07/31/2022 9:06 AM EST Piping Drafter offered: Patient declines. Diony is a 67 [...] L0 SAB0 IAB0 Ectopic0 Multiple0 Live Births0 Rib Knitter History LMP: 03/23/2007, Postmenopausal Age at Menarche: Age at First : Age at Menopause: Rib Knitter History Comments: Sexual Activity: Yes; Male; Tubal [...] and quit 2005. Smoked about 1.5 PPD Herpes 01/27/2021 History [...] external genitalia normal, normal [place]th[place]'s glands, urethra, [place]'s glands, no vulvar lesions, no cervical lesions, [...] Ashleigh Negrete APRN.LUIS FELIPE documented in this encounterUniversity Hospitals Lake West Medical Center11-21-2022 History of Present illness Narrative* Kami Hunter RN - 07/23/2022 2:13 PM EST INSIGHT CDM TELEPHONIC OUTREACH Provider Action/FYI: Patient [...] like to speak with a social work steam drier tender to help give you support for any [...] you up for automated weekly questionnaires through [employer]. This is an easy way for us [...] PtOutreach and End outreach. documented in this encounterUniversity Hospitals Lake West Medical Center11-07-2022 Miscellaneous Notes* Telephone Encounter - Kayce Mendiola LPN - 07/09/2022 5:25 PM EST Patient notified. Kayce Mendiola LPN * Telephone Encounter - Sweetie Romeo APRN.CNP - 07/09/2022 4:24 PM EST Please call patient and let her know her chest xray does not show any acute findings. Sweetie Romeo APRN.LUIS FELIPE documented in this encounterUniversity Hospitals Lake West Medical Center11-07-2022 History of Present illness Narrative* Sweetie Romeo APRN.CNP - 07/09/2022 10:49 AM EST 07/09/2022 Patient presents with: Covid: Diagnosed 07/04/22, continuing to have difficulty breathing SUBJECTIVE: This is a 67 year old that is here today for Above Complaints. Tested positive for COVID-19 on 07/04 with symptoms starting two days prior. Placed on prednisone. She reports she talked to her manager ems , Dr. Gustafson and he put her [...] showed normal sinus rhythm at 82 BPM, NM interval 124 ms, normal QRS, normal ST-T, [...] To ER with red flag symptoms Sweetie Romeo, APPLICATION PACKAGER.GRAVEL SCREENER Prescription instructions reviewed with patient as applicable. [...] which included preparing to see the patient, [id number]-[id number] patient care, completing clinical documentation, obtaining and/or reviewing separately obtained history, performing a medically appropriate examination, counseling and educating the pat ient/family/caregiver, and ordering medications, tests, or procedures. documented in this encounterUniversity Hospitals Lake West Medical Center11-07-2022 Miscellaneous Notes* Telephone Encounter - Joana Au RN - 07/09/2022 8:22 AM EST Patient calling and states she was seen in [facility] on 07/04/22 for suspected COVID. Patient [...] Romeo for 10:40am. Please call patient at [phone] if provider has other instructions. Will send this message to Shanita Green and Sweetie Romeo for review. Thank you. documented in this encounterUniversity Hospitals Lake West Medical Center11-03-2022 Miscellaneous Notes* Telephone Encounter - Alice Medina LPN - 07/05/2022 8:50 AM EDT Patient notified and verbalized understanding of instructions given.Alice Medina LPN * Telephone Encounter - Shanna Newton APRN.CNP - 07/05/2022 7:58 AM EDT Patient is positive for COVID. Please instruct to quarantine for the first 5 days of symptoms and then mask for another 5 days. If symptoms are worsening follow-up with primary care. Patient was negative for flu. documented in this encounterUniversity Hospitals Lake West Medical Center11-02-2022 Instructions* Patient Instructions* Rito Sheridan APRN.LUIS FELIPE [...] or concerning to you. documented in this encounterUniversity Hospitals Lake West Medical Center11-02-2022 History of Present illness Narrative* Rito Sheridan [...] of care. This note was generated using [employer] software. It may contain errors in wording, punctuation, or spelling. Rito Sheridan APRN.LUIS FELIPE documented in this encounterUniversity Hospitals Lake West Medical Center10-31-2022 History of Present illness Narrative* Kami Hunter RN - 07/02/2022 1:33 PM EDT [facility] TELEPHONIC OUTREACH Provider Action/FYI: Contact made with patient: No - Left message Radha my name is Kami Hunter RN your Airframe And Powerplant Mechanic from the [facility] I am calling today for your bi-weekly check in. I am sorry I missed your call. I will reach out to you again tomorrow. (if the third call I will reach out to you again next week) Enter next patient outreach date for the following business day using the Track Pt Outreach. End outreach. documented in this encounterUniversity Hospitals Lake West Medical Center10-11-2022 History of Present illness Narrative* Kami Hunter RN - 06/12/2022 1:36 PM EDT [facility] TELEPHONIC OUTREACH Provider Action/FYI: Contact made with patient: No - Left message Radha my name is Kami Hunter RN your Airframe And Powerplant Mechanic from the [facility] I am calling today for your bi-weekly check in. I am sorry I missed your call. I will reach out to you again in three weeks. (if the third call I will reach out to you again next week) Enter next patient outreach date for the following business day using the Track Pt Outreach. End outreach. documented in this encounterUniversity Hospitals Lake West Medical Center09-26-2022 Instructions* Patient Instructions* Shanita Green PA-C - 05/28/2022 10:38 AM EDT I would like you to see Dr. Shore for the overactive bladder. Try spliting the dose of trazodone. Taking one tablet at bedtime and then a 1/2 tablet when you wake in middle of the night. Follow up for routine check up in 3-4 months. documented in this encounterUniversity [facility]als [facility]09-26-[facility] History of Present illness Narrative* Shanita Green [...] UROLOGY Shanita Green PA-C documented in this encounterUniversity Hospitals [facility]09-06-2022 History of Present illness Narrative* Kami Hunter [...] like to speak with a social work steam drier tender to help give you support for any [...] you up for automated weekly questionnaires through [employer]. This is an easy way for us [...] PtOutreach and End outreach. documented in this encounterUniversity Hospitals [facility]09-06-2022 Miscellaneous Notes* Telephone Encounter - Melita Le LPN - 05/08/2022 2:27 PM EDT Pt notified of Shanita's message and instructions. Pt verbalizes understanding. Melita Le LPN * Telephone Encounter - Shanita Green PA-C - 05/08/2022 1:48 PM EDT We could see if insurance will cover detr LA. I will send in. Let us [...] advise, [place] Gill RN documented in this encounterUniversity Hospitals Lake [facility]08-30-2022 Miscellaneous Notes* Telephone Encounter - Shanita Green [...] to the pharmacy. Please call patient at: [phone] Tarsha Centeno Pss Last refill 09/20/21 Qty: 90 with 1 refill CHLOE 04/30/22 NOV 05/28/22 Melita Le LPN * Telephone Encounter - Tarsha Centeno Pss - 04/30/2022 4:59 PM EDT Patient has been identified by name and date of : Yes Requested Prescriptions Pending Prescriptions Disp Refills amLODIPine (NORVASC) 2.5 mg tablet 90 tablet 3 Sig: Take 1 tablet by mouth once daily. RX INSTRUCTIONS: Patient requesting a call when RX is approved and sent to the pharmacy. Please call patient at: [phone] Tarsha Centeno Pss documented in this encounterUniversity Hospitals Lake [facility]08-23-2022 History of Present illness Narrative* Kami Hunter, ELDER - 04/24/2022 2:41 PM EDT INSIGHT CDM [...] like to speak with a social work steam drier tender to help give you support for any [...] you up for automated weekly questionnaires through [employer]. This is an easy way for us [...] PtOutreach and End outreach. documented in this encounterUniversity Hospitals [facility]08-22-2022 History of Present illness Narrative* Kami Hunter RN - 04/23/2022 3:36 PM EDT INSIGHT CDM TELEPHONIC OUTREACH Provider Action/FYI: Contact made with patient: No - Left message Hello my name is Kami Hunter RN your Airframe And Powerplant Mechanic [facility] the [facility] I am calling today for your bi-weekly check in. I am sorry I missed your call. I will reach out to you again tomorrow. (if the third call I will reach out to you again next week) Enter next patient outreach date for the following using the Track Pt Outreach. End outreach. documented in this encounterUniversity Hospitals [facility]08-10-2022 Miscellaneous Notes* Telephone Encounter - Kami Hunter RN - 04/11/2022 2:10 PM EDT PRIMARY CARE COORDINATION QUICK NOTE Provider Action/FYI Per routing comment, pcp advises to schedule appt to discuss. Encounter routed to [facility] to call patient to schedule. Patient [...] Please send reply to Nurse Triage or [facility] as needed. Message received via: InSight - Yes contact made with patient ACTION TAKEN: Based on skate shop attendant, the following disposition is advised: SYMPTOMS PRESENT NOT SEVERE: No action required - Continue outreach / Phone Call documented in this encounterUniversity Hospitals [facility]08-09-2022 History of Present illness Narrative* Kami Hunter RN - 04/10/2022 3:50 PM EDT PRIMARY CARE COORDINATION QUICK NOTE Provider Action/FYI Radha this is Kami Hunter RN your nurse Airframe And Powerplant Mechanic. I am calling to provide you with a phone number to connect you with [facility] services. This number is available 7 days [...] EDT PRIMARY CARE COORDINATION QUICK NOTE Provider Action/FYCynthia Left message on voicemail requesting to call this nurse back in regards to Healthy at Home. Will reach out again tomorrow. Patient identified by name and date . documented in this encounterUniversity Hospitals Lake [facility] Center08-02-2022 History of Present illness Narrative* Kami Hunter [...] like to speak with a social work steam drier tender to help give you support for any [...] you up for automated weekly questionnaires through [employer]. This is an easy way for us [...] my name is Kami Hunter RN your Airframe And Powerplant Mechanic [facility] I am calling today for your bi-weekly check in. I am sorry I missed your call. I will reach out to you again tomorrow. (if the third call I will reach out to you again next week) Enter next patient outreach date for the following business day using the Track Pt Outreach. End outreach. documented in this encounterUniversity Hospitals [facility]07-29-2022 Miscellaneous Notes* Telephone Encounter - Joana Au RN - 03/30/2022 11:40 AM EDT Patient returned call and given provider's message below and patient verbalized understanding. Patient transferred to nursing assoc. Susan Au RN * Telephone Encounter - Gerald John Ma - 03/30/2022 11:21 AM EDT Called and left message on patients voicemail to return call to the office and ask to speak with a triage nurse. Gerald John Ma * Telephone Encounter - Shanita Green PA-C - 03/30/2022 10:57 AM EDT Let patient know that US does show a 5cm uterine fibroid. Will consult food management aide for any further recommendations from them. Shanita Green PA-C documented in this encounterUniversity Hospitals Lake [facility]07-28-2022 History of Present illness Narrative* RT Ken(Renata) - 03/29/2022 10:00 AM EDT Radiology Service [...] IV DATA: Not applicable SIGNED BY: RT Ken(Renata) March 29, 2022 11:14 AM documented in this encounterUniversity Hospitals Lake [facility] Center07-25-2022 Miscellaneous Notes* Telephone Encounter - Cely Rodriguez [...] normal. Shanita Green PA-C documented in this encounterUniversity Hospitals Lake [facility] Center07-22-2022 History of Present illness Narrative* Fina Farias, [...] 23, 2022 8:38 AM documented in this encounterUniversity Hospitals Lake [facility] Center07-22-2022 History of Present illness Narrative* Shanita Green PA-C - 03/23/2022 7:54 AM EDT Chief Complaint Patient presents with: Hospital Follow Up HPI Diony Ramirez is a 67 year old female who presents here today for Hospital Discharge Follow up.. Patient developed upper abdominal pain on 03/16. It did not improved so she went to 03/17/22 [facility]. Was found to have a small bowel [...] DIFF Shanita Green PA-C documented in this encounterUniversity Hospitals Lake [facility] Center07-20-2022 History of Present illness Narrative* Kami Hunter RN - 03/21/2022 1:37 PM EDT INSIGHT CD TELEPHONIC OUTREACH Provider Action/FYI: Patient reports she is doing better since inpatient at [facility] for SBO. Patient has hospital follow up [...] like to speak with a social work steam drier tender to help give you support for any [...] you up for automated weekly questionnaires through [employer]. This is an easy way for us [...] PtOutreach and End outreach. documented in this encounterUniversity Hospitals [facility] Center07-19-2022 History of Present illness Narrative* Kami Hunter RN - 03/20/2022 2:01 PM EDT INSIGHT [facility] TELEPHONIC OUTREACH Provider Action/FYI: Contact made with patient: No - Left message Hello my name is Kami Hunter RN your Airframe And Powerplant Mechanic [facility] I am calling today for your bi-weekly check in. I am sorry I missed your call. I will reach out to you again tomorrow. (if the third call I will reach out to you again next week) Enter next patient outreach date for the following day using the Track Pt Outreach. End outreach. documented in this encounterUniversity Hospitals [facility]07-13-2022 History of Present illness Narrative* Bashir Landa [...] 14, 2022 10:51 AM documented in this encounterUniversity Hospitals [facility]07-13-2022 History of Present illness Narrative* Bernard Elliott [...] cushion. Bernard Elliott MD documented in this encounterUniversity Hospitals Lake [facility] Center07-05-2022 History of Present illness Narrative* Kami Hunter [...] like to speak with a social work steam drier tender to help give you support for any [...] you up for automated weekly questionnaires through [employer]. This is an easy way for us [...] PtOutreach and End outreach. documented in this encounterUniversity Hospitals [facility] Center07-01-2022 History of Present illness Narrative* Kami Hunter RN - 03/02/2022 1:22 PM EDT INSIGHT CDM TELEPHONIC OUTREACH Provider Action/FYI: Contact made with patient: No - Left message Hello my name is Kami Hunter RN your Airframe And Powerplant Mechanic [facility] I am calling today for your bi-weekly check in. I am sorry I missed your call. I will reach out to you again tomorrow. (if the third call I will reach out to you again next week) Enter next patient outreach date for the following business day using the Track Pt Outreach. End outreach. documented in this encounterUniversity Hospitals [facility] Center06-16-2022 History of Present illness Narrative* Kami Hunter RN - 02/15/2022 3:18 PM EDT INSIGHT CDM TELEPHONIC OUTREACH Provider Action/FYI: Contact made with patient: No - Unable to leave message Entered next patient outreach date for the following business day, if third call please enter next outreach date for one week in the Track Pt. Outreach - End Outreach documented in this encounterUniversity Hospitals Lake [facility] Center06-02-2022 History of Present illness Narrative* Good Silva [...] name and date . Kami Hunter RN Bridge Teacher * Rito Camp MD - 02/01/2022 3:42 [...] assist will not be beneficial. * Kami Hunter RN - 02/01/2022 2:01 PM EDT INSIGHT CDM TELEPHONIC OUTREACH [...] like to speak with a social work steam drier tender to help give you support for any [...] you up for automated weekly questionnaires through [employer]. This is an easy way for us [...] PtOutreach and End outreach. documented in this encounterUniversity Hospitals Lake [facility] Center05-16-2022 History of Present illness Narrative* Kami Hunter RN - 01/15/2022 1:23 PM EDT [...] like to speak with a social work steam drier tender to help give you support for any [...] you up for automated weekly questionnaires through [employer]. This is an easy way for us [...] PtOutreach and End outreach. documented in this encounterUniversity Hospitals [facility] Center05-11-2022 Miscellaneous Notes* Telephone Encounter - Rito Camp MD - 01/10/2022 11:13 AM EDT Noted and agree. * Telephone Encounter - Kasey Becker LPN - 01/10/2022 9:13 AM EDT Patient calling she started with head cold symptoms, now coughing, congestion. She has taken mucinex, black elderberry otc. She said her chest is feeling tight she has asthma and COPD. Advised to go to ill urgent care for evaluation. documented in this encounterUniversity Hospitals Lake [facility] Center05-11-2022 History of Present illness Narrative* Shanna Newton APRN.GRAVEL SCREENER - 01/10/2022 9:58 AM EDT CC: Patient [...] Shanna Newton APRN.LUIS FELIPE documented in this encounterUniversity Hospitals Lake [facility]05-03-2022 History of Present illness Narrative* Kami Hunter RN - 01/02/2022 2:31 PM EDT INSIGHT [facility] TELEPHONIC OUTREACH Provider Action/FYI: Pt had returned [...] like to speak with a social work steam drier tender to help give you support for any [...] you up for automated weekly questionnaires through [employer]. This is an easy way for us [...] my name is Kami Hunter RN your Airframe And Powerplant Mechanic [facility] I am calling today for your bi-weekly check in. I am sorry I missed your call. I will reach out to you again tomorrow. (if the third call I will reach out to you again next week) Enter next patient outreach date for the following business day using the Track Pt Outreach. End outreach. documented in this encounterUniversity Hospitals [facility] Center04-26-2022 Miscellaneous Notes* Telephone Encounter - Shanita Green [...] more vitamins than needed. documented in this encounterUniversity Hospitals Lake [facility] Center04-22-2022 Miscellaneous Notes* Telephone Encounter - Melita Le [...] come back. Please advise. documented in this encounterUniversity Hospitals Lake West [facility] Center04-20-2022 Miscellaneous Notes* Telephone Encounter - Fannie Centeno [...] Patient states she has been taking about [id number] international unit(s) of Vit D a day [...] process. Shanita Green PA-C documented in this encounterUniversity Hospitals Lake West [facility] Center04-19-2022 History of Present illness Narrative* Shanita Green [...] HYDROXY Shanita Green PA-C documented in this encounterUniversity Hospitals Lake West Medical Center04-18-2022 History of Present illness Narrative* Kami Hunter RN - 12/18/2021 2:32 PM EDT INSIGHT [facility] TELEPHONIC OUTREACH Provider Action/FYI: Pt reports she [...] like to speak with a social work steam drier tender to help give you support for any [...] you up for automated weekly questionnaires through [employer]. This is an easy way for us [...] PtOutreach and End outreach. documented in this encounterUniversity Hospitals Lake [facility] Center04-04-2022 History of Present illness Narrative* Kami Hunter RN - 12/04/2021 3:14 PM EDT INSIGHT [facility] TELEPHONIC OUTREACH Provider Action/FYI: Pt reports she [...] like to speak with a social work steam drier tender to help give you support for any [...] you up for automated weekly questionnaires through [employer]. This is an easy way for us [...] PtOutreach and End outreach. documented in this encounterUniversity Hospitals Lake [facility] Center04-17-2021 History of Present illness Narrative* Bashir Landa)Uriah - 12/17/2020 10:00 AM EDT Radiology Service [...] 17, 2020 10:08 AM documented in this encounterUniversity Hospitals Lake West [facility] Center11-21-2020 History of Present illness Narrative* Kita De [...] 23, 2020 10:01 AM documented in this encounterUniversity Hospitals Lake West [facility] Center11-21-2020 Miscellaneous Notes* Result Encounter Note - Darvin Gold III - 07/23/2020 9:50 AM EST Good news chest x-ray is normal. No evidence of pneumonia. Darvin Gold III, MD, FAAFP documented in this encounterUniversity Hospitals Lake West [facility] Center11-21-2020 Progress note* Result Encounter Note - Darvin Gold III - 07/23/2020 9:50 AM EST Good news chest x-ray is normal. No evidence of pneumonia. Darvin Gold III, MD, FAAFP [facility] History of Past illness Narrative* Problem Noted [...] of this encounter (statuses as of 12/04/2021) [facility] of Past illness Narrative* Problem Noted [...] of this encounter (statuses as of 12/18/2021) [facility] of Past illness Narrative* Problem Noted [...] of this encounter (statuses as of 12/19/2021) [facility] of Past illness Narrative* Problem Noted [...] of this encounter (statuses as of 12/20/2021) [facility] of Past illness Narrative* Problem Noted [...] of this encounter (statuses as of 12/22/2021) [facility] of Past illness Narrative* Problem Noted [...] of this encounter (statuses as of 12/26/2021) [facility] of [facility] illness Narrative* Problem Noted [...] of this encounter (statuses as of 01/02/2022) [facility] of [facility] illness Narrative* Problem Noted [...] of this encounter (statuses as of 01/10/2022) [facility] of Past illness Narrative* Problem Noted [...] of this encounter (statuses as of 01/10/2022) [facility] of [facility] illness Narrative* Problem Noted [...] of this encounter (statuses as of 01/15/2022) [facility] of [facility] illness Narrative* Problem Noted [...] of this encounter (statuses as of 02/01/2022) [facility] Narrative* Problem Noted [...] of this encounter (statuses as of 02/15/2022) [facility] Narrative* Problem Noted [...] of this encounter (statuses as of 03/02/2022) [facility] Narrative* Problem Noted [...] of this encounter (statuses as of 03/06/2022) [facility] Narrative* Problem Noted [...] of this encounter (statuses as of 03/14/2022) [facility] Narrative* Problem Noted [...] of this encounter (statuses as of 03/20/2022) [facility] Narrative* Problem Noted [...] of this encounter (statuses as of 03/21/2022) [facility] Narrative* Problem Noted [...] of this encounter (statuses as of 03/23/2022) [facility] Narrative* Problem Noted [...] of this encounter (statuses as of 03/26/2022) [facility] Narrative* Problem Noted [...] of this encounter (statuses as of 03/30/2022) [facility] Narrative* Problem Noted [...] of this encounter (statuses as of 03/30/2022) [facility] Narrative* Problem Noted [...] 12/07/2015 Adjustment disorder with depressed mood 05/20/20 09/21/2019 documented as of this encounter (statuses as of 04/03/2022) [facility] Narrative* Problem Noted [...] of this encounter (statuses as of 04/10/2022) [facility] Narrative* Problem Noted [...] of this encounter (statuses as of 04/11/2022) [facility] Narrative* Problem Noted [...] of this encounter (statuses as of 04/23/2022) [facility] Narrative* Problem Noted [...] of this encounter (statuses as of 04/24/2022) [facility] Narrative* Problem Noted [...] of this encounter (statuses as of 05/01/2022) [facility] Narrative* Problem Noted [...] of this encounter (statuses as of 05/08/2022) [facility] Narrative* Problem Noted [...] of this encounter (statuses as of 05/08/2022) [facility] Narrative* Problem Noted [...] of this encounter (statuses as of 05/28/2022) [facility] Narrative* Problem Noted [...] of this encounter (statuses as of 06/12/2022) [facility] Narr[facility]* Problem Noted [...] of this encounter (statuses as of 07/02/2022) [facility] Narrative* Problem Noted [...] of this encounter (statuses as of 07/04/2022) [facility]arr[facility]* Problem Noted [...] of this encounter (statuses as of 07/05/2022) [facility] N[facility]* Problem Noted [...] of this encounter (statuses as of 07/09/2022) [facility]arr[facility]* Problem Noted [...] of this encounter (statuses as of 07/09/2022) [facility] Narr[facility]* Problem Noted [...] of this encounter (statuses as of 07/09/2022) [facility] N[facility]* Problem Noted [...] of this encounter (statuses as of 07/23/2022) [facility] N[facility]* Problem Noted [...] of this encounter (statuses as of 07/31/2022) [facility]* Problem Noted [...] of this encounter (statuses as of 08/03/2022) [facility]* Problem Noted [...] of this encounter (statuses as of 08/14/2022) [facility]* Problem Noted [...] of this encounter (statuses as of 08/17/2022) [facility] N[facility]* Problem Noted Date Resolved Date Carpal tunnel syndrome, right 01/03/2017 Median nerve entrapment 10/10/2016 09/21/19 20 Nocturnal muscle cramps 09/11/2016 09/21/19 HSV (herpes simplex virus) anogenital infection 02/08/2016 [...] of this encounter (statuses as of 09/04/2022) [facility] Narr[facility]* Problem Noted [...] of this encounter (statuses as of 09/12/2022) [facility] N[facility]* Problem Noted [...] of this encounter (statuses as of 09/17/2022) [facility]* Problem Noted [...] of this encounter (statuses as of 09/27/2022) [facility]* Problem Noted [...] of this encounter (statuses as of 11/06/2022) [facility]* Problem Noted [...] of this encounter (statuses as of 11/12/2022) [facility]* Problem Noted [...] of this encounter (statuses as of 11/19/2022) [facility]* Problem Noted [...] of this encounter (statuses as of 11/19/2022) [facility]* Problem Noted [...] of this encounter (statuses as of 11/20/2022) [facility]* Problem Noted [...] of this encounter (statuses as of 12/05/2022) [facility]* Problem Noted [...] of this encounter (statuses as of 12/06/2022) [facility]* Problem Noted [...] of this encounter (statuses as of 12/07/2022) [facility]* Problem Noted [...] of this encounter (statuses as of 01/01/2023) [facility] History of Past illness Narrative* Problem Noted [...] of this encounter (statuses as of 01/07/2023) [facility] History of Past illness Narrative* Problem Noted [...] of this encounter (statuses as of 02/15/2023) [facility] History of Past illness Narrative* Problem Noted [...] of this encounter (statuses as of 02/20/2023) [facility] History of Past illness Narrative* Problem Noted [...] of this encounter (statuses as of 02/21/2023) [facility] History of Past illness Narrative* Problem Noted [...] of this encounter (statuses as of 02/26/2023) [facility] History of Past illness Narrative* Problem Noted [...] of this encounter (statuses as of 02/27/2023) [facility] History of Past illness Narrative* Problem Noted [...] of this encounter (statuses as of 02/27/2023) [facility] History of Past illness Narrative* Problem Noted [...] of this encounter (statuses as of 03/01/2023) [facility] History of Past illness Narrative* Problem Noted [...] of this encounter (statuses as of 03/08/2023) [facility] History of Past illness Narrative* Problem Noted [...] of this encounter (statuses as of 04/17/2023) [facility] History of Past illness Narrative* Problem Noted [...] of this encounter (statuses as of 05/07/2023) [facility] History of Past illness Narrative* Problem Noted [...] of this encounter (statuses as of 05/15/2023) [facility] History of Past illness Narrative* Problem Noted [...] of this encounter (statuses as of 06/04/2023) [facility] History of Past illness Narrative* Problem Noted [...] of this encounter (statuses as of 06/05/2023) [facility] History of Past illness Narrative* Problem Noted [...] of this encounter (statuses as of 06/07/2023) [facility] History of Past illness Narrative* Problem Noted [...] of this encounter (statuses as of 06/08/2023) [facility] History of Past illness Narrative* Problem Noted [...] of this encounter (statuses as of 06/12/2023) [facility] History of Past illness Narrative* Problem Noted [...] of this encounter (statuses as of 06/13/2023) [facility] History of Past illness Narrative* Problem Noted [...] of this encounter (statuses as of 06/20/2023) [facility] History of Past illness Narrative* Problem Noted [...] of this encounter (statuses as of 06/21/2023) [facility] History of Past illness Narrative* Problem Noted [...] of this encounter (statuses as of 06/28/2023) [facility] History of Past illness Narrative* Problem Noted [...] of this encounter (statuses as of 07/06/2023) [facility] History of Past illness Narrative* Problem Noted [...] of this encounter (statuses as of 07/06/2023) [facility] History of Past illness Narrative* Problem Noted [...] of this encounter (statuses as of 07/06/2023) [facility] History of Past illness Narrative* Problem Noted [...] of this encounter (statuses as of 07/06/2023) [facility] History of Past illness Narrative* Problem Noted [...] of this encounter (statuses as of 07/06/2023) [facility] History of Past illness Narrative* Problem Noted [...] of this encounter (statuses as of 07/06/2023) [facility] History of Past illness Narrative* Problem Noted [...] of this encounter (statuses as of 07/15/2023) [facility] History of Past illness Narrative* Problem Noted [...] of this encounter (statuses as of 07/22/2023) [facility] History of Past illness Narrative* Problem Noted [...] of this encounter (statuses as of 08/01/2023) [facility] History of Past illness Narrative* Problem Noted [...] of this encounter (statuses as of 08/07/2023) [facility] History of Past illness Narrative* Problem Noted [...] of this encounter (statuses as of 08/23/2023) [facility] History of Past illness Narrative* Problem Noted [...] of this encounter (statuses as of 10/07/2023) [facility] History of Past illness Narrative* Problem Noted [...] of this encounter (statuses as of 10/15/2023) [facility] History of Past illness Narrative* Problem Noted [...] of this encounter (statuses as of 10/16/2023) [facility] History of Past illness Narrative* Problem Noted [...] of this encounter (statuses as of 10/21/2023) [facility] History of Past illness Narrative* Problem Noted [...] of this encounter (statuses as of 10/22/2023) [facility] History of Past illness Narrative* Problem Noted [...] of this encounter (statuses as of 11/08/2023) [facility] History of Past illness Narrative* Problem Noted Date Diagnosed Date Resolved Date Carpal tunnel syndrome, right 01/03/2017 09/21/2019 Median nerve entrapment 10/10/201609/03 Nocturnal muscle cramps 09/11/201609/03 HSV (herpes simplex virus) a nogenital infection 02/08/2016 09/21/2019 Chest pain, atypical 12/15/2013 08/27/2 014 SOB (shortness of breath) 12/15/2013 Epidural [...] of this encounter (statuses as of 11/19/2023) [facility] History of Past illness Narrative* Problem Noted [...] of this encounter (statuses as of 12/14/2023) [facility] History of Past illness Narrative* Problem Noted [...] of this encounter (statuses as of 12/17/2023) [facility] History of Past illness Narrative* Problem Noted [...] of this encounter (statuses as of 12/18/2023) [facility] History of Past illness Narrative* Problem Noted [...] of this encounter (statuses as of 12/22/2023) [facility] Author Filipe Rahman [facility] Note Date/Time March 31, 2025 9:02 am [facility] Medical Records Department [address] [place] [address] Anesthesia Postop Eval I 03/31/25 0900 MR#: [id number] Acct: [id number] Name: JENA RAMIREZ HUDSON Rep #:[id number] : 1955 70 From: Filipe Rahman PCP: Dr. Rito Camp MD Status:REG [facility] Y Race: C Location: [place] [address] Anesthesia: Postop Eval I Current Vital Signs Temperature: 98 F Pulse Rate: 86 Blood Pressure: 122/77 Respiratory Rate: 16 Pulse Ox: 98 Oxygen Delivery Method: Room Air Assessment Airway patent: Yes Spontaneous unlabored respirations: Yes Mental status: Awake and Calm nausea: No Vomiting: No Anesthesia Complication: No Fluid Hydration Crystalloid volume administer (ml): 700 Total IV fluid infused: 700 Progress Note Anesthesia document: Postop Eval 1 completed: Yes 03/31/25901 <Electronically signed by Filipe Rahman > Date _ Filipe Childsignkelsi Signature: Date CC: ~ Signed [facility] Work Phone: Consult note Author Gustavo Roque [facility] Note Date/Time March 31, 2025 9:38 am [facility] Medical Records Department [address] [place] [id number] Anesthesia Postop Eval II 03/31/25921 MR#: [id number] Acct: [id number] Name: JENA RAMIREZ Rep #:[id number] : 1955 70 From: Gustavo Nguyen PCP: Dr. Rito Camp MD Status:REG [facility] Y Race: C Location: [place] [address] Anesthesia Postop Eval I Sum Postop Eval Completion status Anesthesia document: Postop Eval 1 completed: Yes Anesthesia Postop Eval I Summary Anesthesia Postop Eval I Summary: Anesthesia Postop Eval I: Assessment Summary Airway patent Yes 03/31/25 09:02 [email or web address] Spontaneous unlabored Yes 03/31/25 09:02 [email or web address] respirations Mental status Awake,Calm 03/31/25 09:02 [email or web address] nausea No 03/31/25 09:02 [email or web address] Vomiting No 03/31/25 09:02 [email or web address] Anesthesia Postop Eval I: Fluid Summary Crystalloid volume administer 700 03/31/25 09:02 [email or web address] (ml) Colloids volume administered ( ml) Blood Product volume administered (ml) Total IV fluid infused 700 03/31/25 09:02 [email or web address] Anesthesia Postop Eval I: Summary Notes Anesthesia Complication No 03/31/25 09:02 [email or web address] Anesthesia Complication Comment: Post-operative progress note Anesthesia: Postop Eval II Evaluation Mental status: Awake and Calm Pain Level: 0 nausea: No Vomiting: No Progress Note Post-operative progress note: meets discharge criteria Complications Anesthesia Complication: No 03/31/25921 <Electronically signed by Gustavo Roque MD> Date _ Gustavo Roque MD Cosigner Signature: Date CC: ~ Signed [facility] Work Phone: Consult note Author Gustavo Roque [facility] Note Date/Time March 31, 2025 9:38 am [facility] Medical Records Department [address] [place] [address] Pre-Anesthesia Evaluation 03/31/25922 MR#: [id number] Acct: [id number] Name: JENA RAMIREZ HUDSON Rep #:[id number] : 1955 70 From: Gustavo Nguyen PCP: Dr. Rito Camp MD Status:[facility] Y Race: C Location: [place] [address] ASA Classification* ASA Classification ASA Classification: 3 Assessment & Plan Anesthesia* Anesthesia Assessment Anesthesia Assessment: Discussed sedation and/or anesthesia options, risks, benefits, and alternatives with patient/parents/legal guardian/POA. Questions invited. The patient/parents/legal guardian/POA seems to understand and agrees to proceedwith anesthesia plan. Reviewed the physical assessment, medical history, allergy history and patient home medications list prior to surgery/procedure/anesthetic and documented any changes. Performed airway and anesthesia risk assessments. Anesthesia Type Anesthesia Type: MAC History Source History Obtained from:: Patient and Chart Anesthesia Focused Assessment* Temperature: 98.4 F Pulse Rate: 75 Blood Pressure: 119/76 Respiratory Rate: 16 Pulse Ox: 94 Oxygen Delivery Method: Room Air Airway Assessment Mouth opens: >3 cm Mallampati Score: II Teeth Condition: Intact Neck Range of motion (ROM): Limited ROM Labs Anesthesia Preop lab: CBC WBC 10.6 K/mm3 (4.4-11.0) 06/02/23 06:25 06/02/23 RBC 4.22 M/mm3 (4.2-5.4) 06/02/23 06:25 06/02/23 Hgb 14.1 g/dL (12.0-15.0) 06/02/23 06:25 06/02/23 Hct 43.4 % (37-47) 06/02/23 06:25 06/02/23 Plt Count 266 K/mm3 (150-450) 06/02/23 06:25 06/02/23 CHEMISTRY Potassium 3.6 mmol/L (3.5-5.1) 06/02/23 06:25 06/02/23 Sodium 142 mmol/L (136-145) 06/02/23 06:25 06/02/23 Magnesium 2.2 mg/dL (1.6-2.6) 03/17/22 18:03 03/17/22 Phosphorus 2.9 mg/dL (2.5-4.9) 03/17/22 18:03 03/17/22 BUN 16 mg/dL (7-18) 06/02/23 06:25 06/02/23 Creatinine 0.58 mg/dL (0.55-1.02) 06/02/23 06:25 06/02/23 Glucose 74 mg/dL (74-106) 06/02/23 06:25 06/02/23 TSH 1.19 uIU/mL (0.358-3.74) 02/28/21 18:20 COAG Pre-Assessment Diagnosis/Proposed Procedure Planned Operative Procedure(s): EGD, COLONOSCOPY Anesthesia History 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 When Was Last Pacemaker Check QUESTION #4 FULL TEXT: You/Your Family Experience fever (hyperthermia) with Anesthesia Last Oral Intake Last Oral intake: Last Oral Intake NPO since 17:00 03/31/25 07:10 Meds taken in AM with sips of water? Meds patient instructed to take am of surgery PONV PONV - 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: PONV - 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 Female Yes 03/25/25 16:02 HX of Motion Sickness No 03/25/25 16:02 HX of N/V After Surgery No 03/25/25 16:02 Non-Smoker Yes 03/25/25 16:02 Duration of Surgery greater No 03/25/25 16:02 than 60 minutes Number of Risk Factors 2 03/25/25 16:02 PONV Score Moderate Risk 03/25/25 16:02 Height & Weight Height & Weight: Anesthesia: Height & Weight Height 4 ft 9 in 03/31/25 07:10 Weight: 40.823 kg 03/31/25 07:10 Body Mass Index (BMI) 19.5 03/31/25 07:10 Respiratory Assessment Respiratory 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 Hx Respiratory Tract Infection No 03/25/25 16:02 STOP Sleep Apnea STOP Sleep Apnea - 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: STOP Sleep Apnea - 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 Hx Hypertension Yes: PER PT, CONTROLLED ON 03/25/25 16:02 MEDS Hx Sleep Apnea No 03/31/25 09:05 CPAP Yes 03/31/25 08:55 BIPAP Yes 06/26/18 15:33 Do you snore loudly (louder No 03/25/25 16:02 than talking or can be heard Do you often feel tired/ No 03/25/25 16:02 fatigued/ sleepy during daytime? Has anyone observed you stop No 03/25/25 16:02 breathing during sleep? STOP Results Negative 03/31/25 08:55 QUESTION #5 FULL TEXT : Do you snore loudly (louder than talking or can be heard through closed doors)? 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 Specify any problems Hx of Preganancy in last 3 No 03/25/25 16:02 Months Nurse Filling Out Transfusion MGRIFFITH 03/25/25 16:02 & Questions: Date: 03/25/25 03/25/25 16:02 Time: 16:04 03/25/25 16:02 Patient unable to answer at this time (ie. confused, unrespo /Reproduction History /Reproductive History - 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: /Reproductive Hx- 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 Hx Now No 03/25/25 16:02 Gestational Age (in weeks): EDC: Hx Hx Para Hx Section SAB No 03/25/25 16:02 Active Medications Active Medications: Current Medications Generic Name Dose Route Start Last Admin Trade Name Freq PRN Reason Stop Dose Admin Lactated Ringer's 1,000 mls @ 15 mls/hr 03/31/25 07:00 03/31/25 07:19 IV 15 mls/hr .Q48H JUAN Administration PFSH Medical History Alcohol use Easy bruising Gastric reflux History [...] Arnold-Chiari deformity COPD, moderate Alcohol abuse Osteoporosis Home Medications ?Medication ?Instructions ?Recorded ?Last Taken ?Type melatonin 10 mg sublingual tablet 10 mg PO QHS sleepin g pill 05/20/18 03/16/22 21:00 History ascorbic acid (vitamin C) 500 mg 1,000 mg PO DAILY sup plement 06/26/18 03/16/22 09:00 History tablet,extended release biotin 5,000 mcg sublingual tablet 5,000 mcg sublingua l DAILY 02/23/21 03/16/22 09:00 History supplement cyanocobalamin (vitamin B-12) 2,500 mcg PO DAILY suppl ement 04/27/21 03/16/22 09:00 History 2,500 mcg tablet acyclovir 400 mg tablet 400 mg PO BID female issue 0 04/16/22 Unknown History calcium carbonate (Calcium 600) 600 mg PO DAILY bones 06/01/23 Unknown History amlodipine 2.5 mg tablet (Norvasc) 2.5 mg PO DAILY Blo od pressure 01/01/24 03/31/25 History trazodone 150 mg tablet 150 mg PO QHS 07/21/24 Unkno wn History montelukast 10 mg tablet 10 mg PO QPM breathing #90 t abs 10/19/24 Unknown Rx omeprazole 40 mg capsule,delayed 40 mg PO DAILY acid r eflux #90 caps 12/17/24 03/31/25 Rx release ondansetron HCl 4 mg tablet 4 mg PO .COMPLEX #5 tabs 0 12/17/24 Unknown Rx peg 3350-electrolytes 236 240 ml PO Q10M #4,000 mL Unknown Rx gram-22.74 gram-6.74 gram-5.86 gram solution (Golytely) albuterol sulfate 90 mcg/actuation 2 puff inhalation Q 6H PRN 02/09/25 Unknown Rx aerosol inhaler (ProAir HFA) shortness of breath or wh eezing #3 ea alendronate 70 mg tablet 70 mg PO QWEEK 02/09/25 Unkn own History quetiapine 50 mg tablet 50 mg PO QHS 02/09/25 Unknow n History budesonide-formoterol HFA 160 2 inh inhalation BID Unknown History mcg-4.5 mcg/actuation aerosol inhaler (Breyna) Allergy/AdvReac Type Severity Reaction Status Date / Time Fish Containing Products Allergy Severe Angioedema Verified 03/31/25 07:09 shellfish derived Allergy Severe Angioedema Verified 03/31/25 07:09 Horse/Equine Containing Allergy Unknown NEEDS Verified 03/31/25 07:09 Products FOLLOW-UP lisinopril Allergy Unknown Unknown Verified 03/31/25 07:09 Family History Father Hypertension Aortic aneurysm Cancer skin and bladder Colon cancer Mother Brain aneurysm Depression Surgical History H/O Spinal surgery H/O eye [...] of physical activity do you participate in: walking and 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 Review of Systems (Anesthesia) ROS Narrative System reviewed and no additional complaints, except as documented. 03/31/25922 <Electronically signed by Gustavo Roque MD> Date _ Gustavo Roque MD Cosigner Signature: Date CC: ~ Signed [facility] Work Phone: Evaluation noteNo assessment information available [facility] Work Phone: Evaluation note* Diagnosis Brittle nails- Primary Other specified disease of nail [facility] Diagnosis High serum vitamin B12- Primary High vitamin D level Hypervitaminosis D [facility] Diagnosis Cough- Primary [facility] Diagnosis Coccyx pain- Primary Other disorder of coccyx [facility] Diagnosis Onset Date Resolution Status Abdominal pain acute Nausea acute Partial small bowel obstruction acute [facility] Work Phone: Evaluation note* Diagnosis Partial intestinal obstruction, unspecified cause (HCC)- Primary Enlarged uterus Hypertrophy of uterus Lower abdominal pain Abdominal pain, other specified site Bruising Contusion of unspecified site [facility] Diagnosis Enlarged uterus Hypertrophy of uterus Lower abdominal pain Abdominal pain, other specified site [facility]* Diagnosis Uterine leiomyoma, unspecified location- Primary [facility]* Diagnosis Essential hypertension, benign [facility]* Diagnosis Onset Date Resolution Status Abdominal pain resolved Nausea resolved Lung nodule acute Nicotine dependence, cigarettes, in remission acute Asthma-COPD overlap syndrome chronic [facility] Work Phone: Evaluation note* Diagnosis Psychophysiological insomnia- Primary Persistent disorder of initiating or maintaining sleep Overactive bladder Hypertonicity of bladder [facility] Diagnosis Suspected COVID-19 virus infection- Primary [facility] Diagnosis Feeling of chest tightness- Primary Other chest pain Chest heaviness Other chest pain Lab test positive for detection of COVID-19 virus SOB (shortness of breath) Shortness of breath [facility]* Diagnosis Encounter for gynecological examination (general) (routine) without abnormal findings- Primary Encounter for screening mammogram for breast cancer [facility]* Diagnosis Essential hypertension, benign [facility] Diagnosis Elevated blood sugar- Primary Other abnormal glucose Essential hypertension, benign Multiple thyroid nodules Nontoxic multinodular goiter Medication management Encounter for long-term (current) use of other medications GERD without esophagitis Esophageal reflux [facility]* Diagnosis Medicare annual wellness visit, subsequent- [...] pathological fracture presence [facility] Diagnosis Osteoporosis, unspecified osteoporosis type, unspecified pathological fracture presence- Primary [facility] Weight loss- Primary Loss of weight Ex-smoker Personal history of tobacco use, presenting hazards to health Multiple thyroid nodules Nontoxic multinodular goiter Lung nodules Other nonspecific abnormal finding of lung field Osteoporosis, unspecified osteoporosis type, unspecified pathological fracture presence [facility] Diagnosis Essential hypertension, benign [facility] Diagnosis Ex-smoker- Primary Personal history of tobacco use, presenting hazards to health Ectatic thoracic aorta (HCC) Thoracic aortic ectasia Weight loss, unintentional Loss of weight Essential hypertension, benign [facility] Diagnosis Psychophysiological insomnia- Primary Persistent disorder of initiating or maintaining sleep Runny nose Other diseases of nasal cavity and sinuses New onset of headaches after age 50 Headache Ectatic thoracic aorta (HCC) Thoracic aortic ectasia [facility] Diagnosis Psychophysiological insomnia- Primary Persistent disorder of initiating or maintaining sleep New onset of headaches after age 50 Headache Essential hypertension, benign Ex-smoker Personal history of tobacco use, presenting hazards to health [facility] Diagnosis Thrombocytosis- Primary Essential thrombocythemia [facility] Diagnosis Thrombocytosis- Primary Essential thrombocythemia [facility]* Diagnosis Psychophysiological insomnia Persistent disorder of initiating or maintaining sleep [facility] Diagnosis Elevated blood sugar- Primary Other abnormal glucose Essential hypertension, benign Multiple thyroid nodules Nontoxic multinodular goiter Medication management Encounter for long-term (current) use of other medications GERD without esophagitis Esophageal reflux [facility] Diagnosis Onset Date Resolution Status Vitamin D toxicity acute Osteoporosis chronic Asthma-COPD overlap syndrome chronic Smoking greater than 30 pack years chronic Abdominal pain acute Nausea acute SBO (small bowel obstruction) acute [facility] Work Phone: Evaluation note* Diagnosis Onset Date Resolution Status Vitamin D toxicity acute Osteoporosis chronic Asthma-COPD overlap syndrome chronic Smoking greater than 30 pack years chronic Abdominal pain acute Alcoholism acute Nausea acute SBO (small bowel obstruction) acute [facility] Work Phone: Evaluation note* Diagnosis S/p small bowel obstruction- Primary Personal history of other diseases of digestive system documented in this encounter [facility] note* Diagnosis Leukocytosis, unspecified type- Primary documented in this encounter [facility] note* Diagnosis Bronchitis- Primary Bronchitis, not specified as acute or chronic Asthma with COPD with exacerbation (HCC) Chronic obstructive asthma with exacerbation Suspected COVID-19 virus infection documented in this encounter [facility] note* Diagnosis Axillary lump, right- Primary documented [facility]* Diagnosis S/p small bowel obstruction Personal history of other diseases of digestive system documented [facility] this [facility]* Diagnosis Psychophysiological insomnia Persistent disorder of initiating or maintaining sleep documented [facility] this [facility]* Diagnosis Weight loss Loss of weight Ex-smoker Personal history of tobacco use, presenting hazards to health documented [facility] this [facility]* Diagnosis Encounter for screening mammogram for malignant neoplasm of breast Other screening mammogram [facility] Diagnosis Osteoporosis, unspecified osteoporosis type, unspecified pathological fracture presence [facility]* Diagnosis New onset of headaches after age 50 Headache [facility]* Diagnosis Weight loss Loss of weight Ex-smoker Personal history of tobacco use, presenting hazards to health Lung nodules Other nonspecific abnormal finding of lung field documented in this encounter [facility] note* Diagnosis Chronic bilateral low back pain with sciatica, sciatica laterality unspecified- Primary documented in this encounter [facility] note* Diagnosis Chronic bilateral low back pain with sciatica, sciatica laterality unspecified- Primary [facility]* Diagnosis Chronic bilateral low back pain with sciatica, sciatica laterality unspecified- Primary documented in this encounter [facility] note* Diagnosis Essential hypertension, benign Psychophysiological insomnia Persistent disorder of initiating or maintaining sleep documented [facility] this [facility]* Diagnosis Neck pain- Primary Cervicalgia Acute pain of right shoulder documented in this encounter [facility] note* Diagnosis COPD with exacerbation (HCC)- Primary Obstructive chronic bronchitis with exacerbation documented in this encounter [facility] note* Diagnosis URI, acute- Primary Acute upper respiratory infections of unspecified site COPD with exacerbation (HCC) Obstructive chronic bronchitis with exacerbation URI, acute Acute upper respiratory infections of unspecified site documented in this encounter [facility] note* Diagnosis Onset Date Resolution Status Asthma-COPD overlap syndrome chronic Smoking greater than 30 pack years [facility] Work Phone: Evaluation note* Diagnosis Fall, initial encounter- Primary Pain of left clavicle Acute pain of left shoulder Pain of left clavicle Fall, initial encounter Acute pain of left shoulder documented in this encounter [facility] note* Diagnosis Fall, initial encounter- Primary Acute pain of left shoulder documented [facility]* Diagnosis Fall (on) (from) other stairs and steps, initial encounter- Primary Rib pain on right side Chest pain, unspecified Fall (on) (from) other stairs and steps, initial encounter Rib pain on right side Chest pain, unspecified documented in this encounter [facility] note* Diagnosis Fall, initial encounter Acute pain of left shoulder Acute pain of left shoulder- Primary documented in this encounter [facility] note* Diagnosis Fall, initial encounter Acute pain of left shoulder documented [facility]* Diagnosis Tendinopathy of rotator cuff, unspecified laterality- Primary documented [facility]* Diagnosis Pain of left clavicle Fall, initial encounter Acute pain of left shoulder documented [facility]* Diagnosis Fall (on) (from) other stairs and steps, initial encounter Rib pain on right side Chest pain, unspecified documented [facility]* Diagnosis URI, acute Acute upper respiratory infections of unspecified site documented in this encounter [facility] note* Diagnosis Neck pain Cervicalgia Acute pain of right shoulder documented [facility]* Diagnosis Lumbar radiculopathy Thoracic or lumbosacral neuritis or radiculitis, unspecified Numbness and tingling of both legs Disturbance of skin sensation Acute bilateral low back pain with bilateral sciatica documented in this encounter [facility] note* Diagnosis Pain Generalized pain documented in this encounter [facility] note* Diagnosis Feeling of chest tightness Other chest pain documented [facility]* Diagnosis Coccyx pain Other disorder of coccyx documented [facility] this [facility]* Diagnosis Partial intestinal obstruction, unspecified cause ([facility]) documented in this encounter [facility]* Diagnosis Dysuria- Primary documented [facility]* Diagnosis Acute cystitis without hematuria- Primary Acute cystitis documented [facility]* Diagnosis Respiratory infection- Primary Other diseases of respiratory system, not elsewhere classified documented in this encounter [facility] note* Diagnosis Pneumonia due to COVID-19 virus documented in this encounter [facility] note* Diagnosis Encounter for screening mammogram for breast cancer [facility] Diagnosis Acute cough- Primary Bacterial pneumonia Bacterial pneumonia, unspecified Acute cough documented in this encounter [facility] note* Diagnosis Acute cough [facility]* Diagnosis Left hip pain- Primary Pain in joint, pelvic region and thigh documented [facility] this [facility]* Diagnosis Left hip pain Pain in joint, pelvic region and thigh documented [facility]* Diagnosis Arnold-Chiari malformation (HCC)- Primary Spina [...] pathological fracture presence documented in this encounter [facility] note* Diagnosis Pain in left hip- Primary Pain in joint, pelvic region and thigh [facility] Diagnosis Essential hypertension, benign Screening for depression documented [facility] this [facility]* Diagnosis Medicare annual wellness visit, subsequent- [...] of other medications [facility] Diagnosis Pain in left hip- Primary Pain in joint, pelvic region and thigh documented [facility] this [facility]* Diagnosis Psychophysiological insomnia Persistent disorder of initiating or maintaining sleep documented [facility]* Diagnosis Pain in left hip- Primary Pain in joint, pelvic region and thigh Chronic bilateral low back pain with sciatica, sciatica laterality unspecified [facility] Diagnosis GERD without esophagitis- Primary Esophageal reflux Choking in adult [facility]* Diagnosis Osteoporosis, unspecified osteoporosis type, unspecified pathological fracture presence [facility] Diagnosis Osteoporosis, unspecified osteoporosis type, unspecified pathological fracture presence- Primary [facility]* Diagnosis Injury of right toe, initial encounter- Primary Psychophysiological insomnia Persistent disorder of initiating or maintaining sleep Ectatic thoracic aorta Thoracic aortic ectasia Injury of right toe, initial encounter [facility]* Diagnosis Injury of right toe, initial encounter documented [facility] this [facility]* Diagnosis Psychophysiological insomnia- Primary Persistent disorder of initiating or maintaining sleep Easy bruising Other symptoms involving skin and integumentary tissues Lumbar radiculopathy Thoracic or lumbosacral neuritis or radiculitis, unspecified documented in this encounter [facility] note* Diagnosis Lumbar radiculopathy- Primary Thoracic or lumbosacral neuritis or radiculitis, unspecified Lumbar back pain Lumbago Radiculopathy of lumbar region Thoracic or lumbosacral neuritis or radiculitis, unspecified documented in this encounter [facility] note* Diagnosis Lumbar radiculopathy- Primary Thoracic or lumbosacral neuritis or radiculitis, unspecified Lumbar back pain Lumbago Radiculopathy of lumbar region Thoracic or lumbosacral neuritis or radiculitis, unspecified documented in this encounter [facility] note* Diagnosis Injury of right wrist, initial encounter- Primary Injury of right wrist, initial encounter documented in this encounter [facility] note* Diagnosis Injury of right wrist, initial encounter documented in this encounter [facility] Discharge instructionsAmbulatory Orders* Speech Therapy Referral Location: None Selected [place] [facility] Work Phone: [employer] for referral (narrative)* Diagnostic Procedure Only (Urgent) - Closed Specialty Diagnoses / Procedures Referred By Contac t Referred To Contact XR IMAGING Diagnoses Coccyx pain Procedures XR SACRUM/COCCYX 3V AP/LAT RADEX SACRUM & COCCYX MINIMUM 2 VIEWS Bernard Elliott MD [address] [place] [address] Xr Imaging Referral ID Status Reason Start Date Expiration Date V isits Requested Visits Authorized [id number] Closed Auto-Generate d Referral 03/14/2022 04/13/2023 1 1 [facility] for referral (narrative)* Diagnostic Procedure Only (Routine) - Authorized Specialty Diagnoses / Procedures Referred By Contac t Referred To Contact US IMAGING Diagnoses Enlarged uterus Lower abdominal pain Procedures US FEMALE PELVIS TRANSVAG US TRANSVAGINAL Shanita Green PA-C [address] [place] [address] Us Imaging Referral ID Status Reason Start Date Expiration Date Visits Requested Visits Authorized [id number] Authorized Auto-Generat ed Referral 03/23/2022 04/22/2023 1 1 * Diagnostic Procedure Only (Routine) - Authorized Specialty Diagnoses / Procedures Referred By Contac t Referred To Contact US IMAGING Diagnoses Enlarged uterus Lower abdominal pain Procedures US FEMALE PELVIS TRANSABD COMPLETE US PELVIC NONOBSTETRIC REAL-TIME IMAGE COMPLETE Shanita Green PA-C [address] [place] [address] Us Imaging Referral ID Status Reason Start Date Expiration Date Visits Requested Visits Authorized [id number] Authorized Auto-Generat ed Referral 03/23/2022 04/22/2023 1 1 * Diagnostic Procedure Only (Routine) - Closed Specialty Diagnoses / Procedures Referred By Contac t Referred To Contact XR IMAGING Diagnoses Partial intestinal obstruction, unspecified cause (HCC) Procedures XR ABDOMEN 1V SUPINE RADIOLOGIC EXAM ABDOMEN 1 VIEW Shanita Green PA-C [address] [place] [address] Xr Imaging Referral ID Status Reason Start Date Expiration Date V isits Requested Visits Authorized [id number] Closed Auto-Generate d Referral 03/23/2022 04/22/2023 1 1 [facility] for referral (narrative)* Diagnostic Procedure Only (Routine) - Closed Specialty Diagnoses / Procedures Referred By Contac t Referred To Contact US IMAGING Diagnoses Enlarged uterus Lower abdominal pain Procedures US FEMALE PELVIS TRANSVAG US TRANSVAGINAL Shanita Green PA-C [address] [place] [address] Us Imaging Referral ID Status Reason Start Date Expiration Date V isits Requested Visits Authorized [id number] Closed Auto-Generate d Referral 03/23/2022 04/22/2023 1 1 [facility] for referral (narrative)* Outpatient Procedure (Routine) - Closed Specialty Diagnoses / Procedures Referred By Castillo t Referred To Contact [facility] Diagnoses Feeling of chest tightness Chest heaviness SOB (shortness of breath) Procedures ECG COMPLETE ECG ROUTINE ECG W/LEAST 12 LDS W/I&R RyanlogSweetie garcia APRN.CNP [address] [place] [address] [facility] [address] [place] [address] Referral ID Status Reason Start Date Expiration Date V isits Requested Visits Authorized [id number] Closed Auto-Generate d Referral 07/09/2022 07/09/2023 1 1 [facility] for referral (narrative)* Diagnostic Procedure Only (Routine) - Pending Review Specialty Diagnoses / Procedures Referred By Castillo argueta Referred To Contact BR IMAGING Diagnoses Encounter for gynecological examination (general) (routine) without abnormal findings Encounter for screening mammogram for breast cancer Procedures MARCIANO SCREENING SCREENING MAMMOGRAPHY BI 2-VIEW BREAST INC Ashleigh Santiago APRN.CNP [address] [place] [address] [facility] [address] [place] [address] Referral ID Status Reason Start Date Expiration Date Visits Requested Visits Authorized [id number] Pending Review Auto-Generat ed Referral 2 08/30/2023 1 1 [facility] for referral (narrative)* Diagnostic Procedure Only (Routine) - Closed Specialty Diagnoses / Procedures Referred By Castillo t Referred To Contact US IMAGING Diagnoses Weight loss Ex-smoker Procedures US ABDOMEN COMPLETE US ABDOMINAL REAL TIME W/IMAGE DOCUMENTATION Rito Camp MD [address] [place] [address] [place] [address] Referral ID Status Reason Start Date Expiration Date V isits Requested Visits Authorized [id number] Closed Auto-Generate d Referral 11/19/2022 12/19/2023 1 1 [facility] for referral (narrative)* Diagnostic Procedure Only (Routine) - Closed Specialty Diagnoses / Procedures Referred By Contac t Referred To Contact BR IM[facility] Diagnoses Encounter for screening mammogram for malignant neoplasm of breast Procedures MARCIANO SCREENING SCREENING MAMMOGRAPHY BI 2-VIEW BREAST INC Ashleigh Santiago APRN.GRAVEL SCREENER [address] [place] [address] [facility] [address] [place] [address] Referral ID Status Reason Start Date Expiration Date V isits Requested Visits Authorized [id number] Closed Auto-Generate d Referral 05/15/2022 06/14/2023 1 1 [facility] for referral (narrative)* Diagnostic Procedure Only (Routine) - Closed Specialty Diagnoses / Procedures Referred By Contac t Referred To Contact XR IMAGING Diagnoses Neck pain Acute pain of right shoulder Procedures XR SHOULDER GENERAL 3V OR MORE AP/TRUE AP/OTHER RIGHT RADEX SHOULDER COMPLETE MINIMUM 2 VIEWS Shanita Green PA-C [address] [place] [address] [place] [address] Referral ID Status Reason Start Date Expiration Date V isits Requested Visits Authorized [id number] Closed Auto-Generate d Referral 10/15/2023 11/13/2024 1 1 * Diagnostic Procedure Only (Routine) - Closed Specialty Diagnoses / Procedures Referred By Contac t Referred To Contact XR IMAGING Diagnoses Neck pain Acute pain of right shoulder Procedures XR CERV OTHER 4V AP/LAT/OBL RADEX SPINE CERVICAL 4 OR 5 VIEWS Shanita Green PA-C [address] [place] [address] [place] [address] Referral ID Status Reason Start Date Expiration Date V isits Requested Visits Authorized [id number] Closed Auto-Generate d Referral 10/15/2023 11/13/2024 1 1 [facility] for referral (narrative)* Diagnostic Procedure Only (Urgent) - Closed Specialty Diagnoses / Procedures Referred By Contac t Referred To Contact XR IMAGING Diagnoses Acute pain of left shoulder Fall, initial encounter Procedures XR SHOULDER GENERAL 3V OR MORE AP/TRUE AP/OTHER LEFT RADEX SHOULDER COMPLETE MINIMUM 2 VIEWS Podlogar, JOI PittN.GRAVEL SCREENER [address] [place] [address] [place] [address] Referral ID Status Reason Start Date Expiration Date V isits Requested Visits Authorized [id number] Closed Auto-Generate d Referral 03/18/2024 04/17/2025 1 1 * Diagnostic Procedure Only (Urgent) - Closed Specialty Diagnoses / Procedures Referred By Contac t Referred To Contact XR IMAGING Diagnoses Pain of left clavicle Fall, initial encounter Procedures XR CLAVICLE 2V LEFT RADEX CLAVICLE COMPLETE Podlogar, JOI PittN.GRAVEL SCREENER [address] [place] [address] [place] [address] Referral ID Status Reason Start Date Expiration Date V isits Requested Visits Authorized [id number] Closed Auto-Generate d Referral 03/18/2024 04/17/2025 1 1 [facility] for referral (narrative)* Diagnostic Procedure Only (Urgent) - Closed Specialty Diagnoses / Procedures Referred By Contac t Referred To Contact XR IMAGING Diagnoses Acute pain of left shoulder Fall, initial encounter Procedures XR SHOULDER GENERAL 3V OR MORE AP/TRUE AP/OTHER LEFT RADEX SHOULDER COMPLETE MINIMUM 2 VIEWS Podlogar, ALAN Pitt.GRAVEL SCREENER [address] [place] [address] [place] [address] Referral ID Status Reason Start Date Expiration Date V isits Requested Visits Authorized [id number] Closed Auto-Generate d Referral 03/18/2024 04/17/2025 1 1 * Diagnostic Procedure Only (Urgent) - Closed Specialty Diagnoses / Procedures Referred By Contac t Referred To Contact XR IMAGING Diagnoses Pain of left clavicle Fall, initial encounter Procedures XR CLAVICLE 2V LEFT RADEX CLAVICLE COMPLETE PodlogSweetie garcia APRN.CNP [address] [place] [address] [place] [address] Referral ID Status Reason Start Date Expiration Date V isits Requested Visits Authorized [id number] Closed Auto-Generate d Referral 03/18/2024 04/17/2025 1 1 [facility] for referral (narrative)* Diagnostic Procedure Only (Routine) - Closed Specialty Diagnoses / Procedures Referred By Contac t Referred To Contact XR IMAGING Diagnoses Neck pain Acute pain of right shoulder Procedures XR SHOULDER GENERAL 3V OR MORE AP/TRUE AP/OTHER RIGHT RADEX SHOULDER COMPLETE MINIMUM 2 VIEWS Shanita Green PA-C [address] [place] [address] [place] [address] Referral ID Status Reason Start Date Expiration Date V isits Requested Visits Authorized [id number] Closed Auto-Generate d Referral 10/15/2023 11/13/2024 1 1 * Diagnostic Procedure Only (Routine) - Closed Specialty Diagnoses / Procedures Referred By Contac t Referred To Contact XR IMAGING Diagnoses Neck pain Acute pain of right shoulder Procedures XR CERV OTHER 4V AP/LAT/OBL RADEX SPINE CERVICAL 4 OR 5 VIEWS Shanita Green PA-C [address] [place] [address] [place] [address] Referral ID Status Reason Start Date Expiration Date V isits Requested Visits Authorized [id number] Closed Auto-Generate d Referral 10/15/2023 11/13/2024 1 1 [facility] for referral (narrative)* Diagnostic Procedure Only (Routine) - Closed Specialty Diagnoses / Procedures Referred By Contac t Referred To Contact XR IMAGING Diagnoses Lumbar radiculopathy Numbness and tingling of both legs Procedures XR HIP BILATERAL 5V PEL/AP/LAT EACH HIP RADEX HIPS BILATERAL WITH PELVIS MINIMUM 5 VIEWS Alex Brown APRN.GRAVEL SCREENER [address] [place] [address] [place] [address] Referral ID Status Reason Start Date Expiration Date V isits Requested Visits Authorized [id number] Closed Auto-Generate d Referral 08/15/2023 09/13/2024 1 1 * Diagnostic Procedure Only (Routine) - Closed Specialty Diagnoses / Procedures Referred By Contac t Referred To Contact XR IMAGING Diagnoses Lumbar radiculopathy Numbness and tingling of both legs Acute bilateral low back pain with bilateral sciatica Procedures XR LUMBAR MOTION 4V AP/LAT/ FLEX/EXT RADEX SPINE LUMBOSACRAL MINIMUM 4 VIEWS Alex Brown APRN.GRAVEL SCREENER [address] [place] [address] [place] [address] Referral ID Status Reason Start Date Expiration Date V isits Requested Visits Authorized [id number] Closed Auto-Generate d Referral 08/15/2023 09/13/2024 1 1 [facility] for referral (narrative)* Diagnostic Procedure Only (Urgent) - Closed Specialty Diagnoses / Procedures Referred By Contac t Referred To Contact XR IMAGING Diagnoses Pain Procedures XR WRIST INJURY 4V PA/LAT/OBL/SCAPH RIGHT RADEX WRIST COMPLETE MINIMUM 3 VIEWS Shanna Newton APRN.GRAVEL SCREENER [address] [place] [address] [place] [address] Referral ID Status Reason Start Date Expiration Date V isits Requested Visits Authorized [id number] Closed Auto-Generate d Referral 12/18/2022 01/17/2024 1 1 [facility] for referral (narrative)* Diagnostic Procedure Only (Urgent) - Closed Specialty Diagnoses / Procedures Referred By Contac t Referred To Contact XR IMAGING Diagnoses Coccyx pain Procedures XR SACRUM/COCCYX 3V AP/LAT RADEX SACRUM & COCCYX MINIMUM 2 VIEWS Bernard Elliott MD [address] [place] [id number] [place] [address] Referral ID Status Reason Start Date Expiration Date V isits Requested Visits Authorized [id number] Closed Auto-Generate d Referral 03/14/2022 04/13/2023 1 1 [facility] for referral (narrative)* Diagnostic Procedure Only (Routine) - Closed Specialty Diagnoses / Procedures Referred By Contac t Referred To Contact XR IMAGING Diagnoses Partial intestinal obstruction, unspecified cause (HCC) Procedures XR ABDOMEN 1V SUPINE RADIOLOGIC EXAM ABDOMEN 1 VIEW Shanita Green PA-C [address] [place] [address] [place] [address] Referral ID Status Reason Start Date Expiration Date V isits Requested Visits Authorized [id number] Closed Auto-Generate d Referral 03/23/2022 04/22/2023 1 1 [facility] for referral (narrative)* Diagnostic Procedure Only (Routine) - Closed Specialty Diagnoses / Procedures Referred By Contac t Referred To Contact XR IMAGING Diagnoses Left hip pain Procedures XR HIP GENERAL 3V PELV/AP/LAT LEFT RADEX HIP UNILATERAL WITH PELVIS 2-3 VIEWS Alex Brown APRN.CNP [address] [place] [address] [place] [address] Referral ID Status Reason Start Date Expiration Date V isits Requested Visits Authorized [id number] Closed Auto-Generate d Referral 08/03/2024 09/02/2025 1 1 [facility] for referral (narrative)* Diagnostic Procedure Only (Routine) - Authorized Specialty Diagnoses / Procedures Referred By Contac t Referred To Contact XR IMAGING Diagnoses Osteoporosis, unspecified osteoporosis type, unspecified pathological fracture presence Procedures DXA-AXIAL SKELETON DXA BONE DENSITY STUDY SITES AXIAL Rito Tripp MD [address] [place] [address] [place] [address] Referral ID Status Reason Start Date Expiration Date Visits Requested Visits Authorized [id number] Authorized Auto-Generat ed Referral 10/01/2024 10/31/2025 1 1 [place] for referral (narrative)No reason for referral information availableWSamaritan [facility] Work Phone: [facility] N[facility]* Diagnostic Procedure Only (Routine) - Closed Specialty Diagnoses / Procedures Referred By Contac t Referred To Contact BR IMAGING Diagnoses Encounter for screening mammogram for malignant neoplasm of breast Procedures MARCIANO SCREENING SCREENING MAMMOGRAPHY BI 2-VIEW BREAST INC CAD Ashleigh Negrete APRN.GRAVEL SCREENER [address] [place] [address] [facility] Imaging [address] [place] [address] Referral ID Status Reason Start Date Expiration Date V isits Requested Visits Authorized [id number] Closed Auto-Generate d Referral 05/15/2022 06/14/2023 1 1 [facility] for visit Narrative* Diagnostic Procedure Only (Urgent) - Closed Specialty Diagnoses / Procedures Referred By Contac t Referred To Contact XR IMAGING Diagnoses Acute pain of left shoulder Fall, initial encounter Procedures XR SHOULDER GENERAL 3V OR MORE AP/TRUE AP/OTHER LEFT RADEX SHOULDER COMPLETE MINIMUM 2 VIEWS PodlogarSweetie APRN.GRAVEL SCREENER [address] [place] [address] [place] [address] Referral ID Status Reason Start Date Expiration Date V isits Requested Visits Authorized [id number] Closed Auto-Generate d Referral 03/18/2024 04/17/2025 1 1 [facility] for visit Narrative* Diagnostic Procedure Only (Routine) - Closed Specialty Diagnoses / Procedures Referred By Contac t Referred To Contact XR IMAGING Diagnoses Neck pain Acute pain of right shoulder Procedures XR SHOULDER GENERAL 3V OR MORE AP/TRUE AP/OTHER RIGHT RADEX SHOULDER COMPLETE MINIMUM 2 VIEWS Shanita Green PA-C [address] [place] [address] [place] [address] Referral ID Status Reason Start Date Expiration Date V isits Requested Visits Authorized [id number] Closed Auto-Generate d Referral 10/15/2023 11/13/2024 1 1 [facility] for visit Narrative* Diagnostic Procedure Only (Routine) - Closed Specialty Diagnoses / Procedures Referred By Contac t Referred To Contact XR IMAGING Diagnoses Lumbar radiculopathy Numbness and tingling of both legs Procedures XR PELVIS 3V AP/INLET/OUTLET RADIOLOGIC EXAM PELVIS COMPL MINIMUM 3 VIEWS Alex Brown, ALAN.GRAVEL SCREENER [address] [place] [address] [place] [address] Referral ID Status Reason Start Date Expiration Date V isits Requested Visits Authorized [id number] Closed Auto-Generate d Referral 08/15/2023 09/13/2024 1 1 [facility] for visit Narrative* Diagnostic Procedure Only (Urgent) - Closed Specialty Diagnoses / Procedures Referred By Contac t Referred To Contact XR IMAGING Diagnoses Pain Procedures XR WRIST INJURY 4V PA/LAT/OBL/SCAPH RIGHT RADEX WRIST COMPLETE MINIMUM 3 VIEWS Shanna Newton, APPLICATION PACKAGER.GRAVEL SCREENER [address] [place] [address] [place] [address] Referral ID Status Reason Start Date Expiration Date V isits Requested Visits Authorized [id number] Closed Auto-Generate d Referral 12/18/2022 01/17/2024 1 1 [facility] for visit Narrative* Diagnostic Procedure Only (Urgent) - Closed Specialty Diagnoses / Procedures Referred By Contac t Referred To Contact XR IMAGING Diagnoses Coccyx pain Procedures XR SACRUM/COCCYX 3V AP/LAT RADEX SACRUM & COCCYX MINIMUM 2 VIEWS Bernard Elliott MD [address] [place] [address] [place] [address] Referral ID Status Reason Start Date Expiration Date V isits Requested Visits Authorized [id number] Closed Auto-Generate d Referral 03/14/2022 04/13/2023 1 1 [facility] for visit Narrative* Diagnostic Procedure Only (Routine) - Closed Specialty Diagnoses / Procedures Referred By Contac t Referred To Contact XR IMAGING Diagnoses Partial intestinal obstruction, unspecified cause (HCC) Procedures XR ABDOMEN 1V SUPINE RADIOLOGIC EXAM ABDOMEN 1 VIEW Shanita Green PA-C [address] [place] [address] [place] [address] Referral ID Status Reason Start Date Expiration Date V isits Requested Visits Authorized [id number] Closed Auto-Generate d Referral 03/23/2022 04/22/2023 1 1 [facility] for visit Narrative* Diagnostic Procedure Only (Routine) - Closed Specialty Diagnoses / Procedures Referred By Contac t Referred To Contact BR IMAGING Diagnoses Encounter for screening mammogram for breast cancer Procedures MARCIANO SCREENING SCREENING MAMMOGRAPHY BI 2-VIEW BREAST INC CAD Rito Camp MD [address] [place] [address] Br Imaging [address] [place] [address] Referral ID Status Reason Start Date Expiration Date V isits Requested Visits Authorized [id number] Closed Auto-Generate d Referral 06/09/2024 07/09/2025 1 1 [facility] for visit Narrative* Diagnostic Procedure Only (Routine) - Closed Specialty Diagnoses / Procedures Referred By Contac t Referred To Contact XR IMAGING Diagnoses Left hip pain Procedures XR HIP GENERAL 3V PELV/AP/LAT LEFT RADEX HIP UNILATERAL WITH PELVIS 2-3 VIEWS Alex Brown APRN.GRAVEL SCREENER [address] [place] [address] [place] [address] Referral ID Status Reason Start Date Expiration Date V isits Requested Visits Authorized [id number] Closed Auto-Generate d Referral 08/03/2024 09/02/2025 1 1 [facility] for visit Narrative* Diagnostic Procedure Only (Routine) - Closed Specialty Diagnoses / Procedures Referred By Contac t Referred To Contact XR IMAGING Diagnoses Osteoporosis, unspecified osteoporosis type, unspecified pathological fracture presence Procedures DXA-AXIAL SKELETON DXA BONE DENSITY STUDY 1/> SITES AXIAL Rito Tripp MD [address] [place] [address] Phone: tel: fax: [place] [address] Referral ID Status Reason Start Date Expiration Date V isits Requested Visits Authorized [id number] Closed Auto-Generate d Referral 10/01/2024 10/31/2025 1 1 [facility] for visit Narrative* Diagnostic Procedure Only (Urgent) - Closed Specialty Diagnoses / Procedures Referred By Contac t Referred To Contact XR IMAGING Diagnoses Injury of right toe, initial encounter Procedures XR FOOT GENERAL 3V AP/LAT/OBL RIGHT XR FOOT GENERAL 3V AP/LAT/OBL RIGHT RADEX FOOT COMPLETE MINIMUM 3 VIEWS Shanita Green PA-C [address] [place] [address] Phone: tel: fax: [place] [address] Referral ID Status Reason Start Date Expiration Date V isits Requested Visits Authorized [id number] Closed Auto-Generate d Referral 01/05/2025 02/04/2026 1 1 [facility] for visit Narrative* Diagnostic Procedure Only (Urgent) - Closed Specialty Diagnoses / Procedures Referred By Contac t Referred To Contact XR IMAGING Diagnoses Injury of right wrist, initial encounter Procedures XR WRIST GENERAL 3V PA/LAT/OBL RIGHT RADEX WRIST COMPLETE MINIMUM 3 VIEWS Ky Shaver, APPLICATION PACKAGER.GRAVEL SCREENER [address] [place] [address] Phone: tel: fax: [place] [address] Referral ID Status Reason Start Date Expiration Date V isits Requested Visits Authorized [id number] Closed Auto-Generate d Referral 05/16/2025 06/15/2026 1 1 [facility] Advance Directives No Advanced Directives Records FoundDocuments on File Type Date Recorded Patient Admissions Manager 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 Advance Directive(s) 01/21/2018 12:19 PM Advance Directive(s) 06/27/2016 9:10 AM Advance Directive(s) 06/19/2016 1:09 PM Advance Directive(s) 12/12/2011 12:00 AM Advance Directive Response Recorded Date/ Time Advance Directives Yes July 4:55pm Living Will Yes February 28, 2021 6:17pm Power of Residential Life Director Yes February 28 6:17pm Documents on File Type Date Recorded Patient Admissions Manager 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 Advance Directive(s) 01/21/2018 12:19 PM Advance Directive(s) 06/27/2016 9:10 AM Advance Directive(s) 06/19/2016 1:09 PM Advance Directive(s) 12/12/2011 12:00 AM Advance Directive Response Recorded Date/ Time Name of Medical Power of Residential Life Director unsure March 17, 2022 6:05pm Advance Directives Yes July 4:55pm Living Will Yes March 17, 2022 6:05pm Power of Residential Life Director Yes March 17 6:05pm Advance Directive Response Recorded Date/ Time Name of Medical Power of Residential Life Director unsure March 17, 2022 6:05pm Advance Directives Yes July 4:55pm Living Will Yes March 17, 2022 10:51pm Power of Residential Life Director No March 17 10:51pm Documents on File Type Date Recorded Patient Admissions Manager 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 Advance Directive(s) 01/21/2018 12:19 PM Advance Directive(s) 12/12/2011 Documents on File Type Date Recorded Patient Admissions Manager 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 Advance Directive(s) 01/21/2018 12:19 PM Advance Directive(s) 12/12/2011 Advance Directive Response Recorded Date/ Time Advance Directives Yes July 4:55pm Living Will No May 31, 2023 9:50pm Power of Residential Life Director No May 9:50pm Advance Directive Response Recorded Date/ Time Name of Medical Power of Residential Life Director Reina Watson June 01, 2023 2:55am Advance Directives Yes July 4:55pm Living Will Yes June 01, 2023 8:11am Power of Residential Life Director Yes May 8:11am Advance Directive Response Recorded Date/ Time Advance Directives Yes July 4:55pm Living Will Yes June 01, 2023 8:11am Power of Residential Life Director Yes May 8:11am Advance Directive Response Recorded Date/ Time Advance Directives Yes July 4:55pm Advance Directive Response Recorded Date/ Time Do you have a Healthcare Power of Residential Life Director? Yes March 25, 2025 4:02pm Advance Directives Yes July 4:55pm Chief Complaint [...] M FU February 09, 2025 10:4 2am Chief Complaint Admit Date Gastroesophageal reflux disease (GERD) A pril 2024 10:25am NICOTINE DEPENDENCE January 01, 2025 12:42p m 5 M FU February 09, 2025 10:4 2am Reason for Visit Admit Date Dysphagia December 17, 2024 10: 25am Encounter for screening colonoscopy Apr l 2024 10:25am Family history of colon cancer in father December 17, 2024 10:25am Asthma-COPD overlap syndrome February 09, 2025 10:42am Nicotine dependence, cigarettes, in faby ssion February 09, 2025 10:42am Dysphagia March 31, 2025 6:50 am Encounter for screening colonoscopy March 31, 2025 6:50am Family history of colon cancer in father March 31, 2025 6:50am Chief Complaint Admit Date NICOTINE DEPENDENCE January 01, 2025 12:42p m 5 M FU February 09, 2025 10:4 2am Test Result April 20, 2025 9: 31am Reason for Visit Admit Date Asthma-COPD overlap syndrome February 09, 2025 10:42am Nicotine dependence, cigarettes, in faby ssion February 09, 2025 10:42am Dysphagia March 31, 2025 6:50 am Encounter for screening colonoscopy March 31, 2025 6:50am Family history of colon cancer in father March 31, 2025 6:50am Cough after eating April 20, 2025 9: 31am Dysphagia April 20, 2025 9: 31am Esophagitis April 20, 2025 9: 31am Chief Complaint Admit Date 5 M FU February 09, 2025 10:4 2am Test Result April 20, 2025 9: 31am DYSPHAGIA. RX HERE May 06, 2025 10:48am Chief Complaint Admit Date 5 M FU February 09, 2025 10:4 2am Test Result April 20, 2025 9: 31am DYSPHAGIA. RX HERE May 06, 2025 10:48am LUMBAR SPINE June 08, 2025 10 :22am RM 5 June 08, 2025 10 :50am Family History No Family History Records Found [...] unspecified location Procedures CONSULT TO GYNECOLOGY OFFICE/OUTPATIENT [facility] 60-74 MINUTES Shanita Green PA-C [address] [place] [address] Referral ID Status Reason Start Date Expiration Date Visits Requested Visits Authorized [id number] Pending Review PCP Requested Referral Auto-Generate d Referral 03/30/2022 03/30/2023 1 1 Specialty Diagnoses / Procedures Referred By Castillo argueta Referred To Contact Urology Diagnoses Overactive bladder Procedures CONSULT TO UROLOGY OFFICE/OUTPATIENT [facility] 60-74 MINUTES Shanita Green PA-C [address] [place] [address] Referral ID Status Reason Start Date Expiration Date Visits Requested Visits Authorized [id number] Pending Review PCP Requested Referral 05/28/2022 05/28/2023 1 1 Specialty Diagnoses / Procedures Referred By Contac t Referred To Contact CT IMAGING Diagnoses Weight loss Ex-smoker Lung nodules Procedures CT CHEST WO IVCON DIAGNOSTIC COMPUTED TOMOGRAPHY THORAX W/O CNTRST Rito Camp MD [address] [place] [address] Referral ID Status Reason Start Date Expiration Date Visits Requested Visits Authorized [id number] Authorized Auto-Generat ed Referral 11/19/2022 12/19/2023 1 1 Specialty Diagnoses / Procedures Referred By Contac t Referred To Contact Endocrinology Diagnoses Osteoporosis, unspecified osteoporosis type, unspecified pathological fracture presence Procedures CONSULT TO ENDOCRINOLOGY OFFICE/OUTPATIENT NEW HIGH MDM 60-74 MINUTES Rito Camp MD [address] [place] [address] Referral ID Status Reason Start Date Expiration Date Visits Requested Visits Authorized [id number] Pending Review PCP Requested Referral 11/19/2022 11/19/2023 1 1 Specialty Diagnoses / Procedures Referred By Contac t Referred To Contact US IMAGING Diagnoses Weight loss Ex-smoker Procedures US ABDOMEN COMPLETE US ABDOMINAL REAL TIME W/IMAGE DOCUMENTATION Rito Camp MD [address] [place] [address] Us Imaging Referral ID Status Reason Start Date Expiration Date Visits Requested Visits Authorized [id number] Authorized Auto-Generat ed Referral 11/19/2022 12/19/2023 1 1 Specialty Diagnoses / Procedures Referred By Contac t Referred To Contact CT IMAGING Diagnoses Ex-smoker Weight loss, unintentional Procedures CT ABD/PEL W IVCON CT ABD & PELVIS W/CONTRAST Rito Camp MD [address] [place] [address] Referral ID Status Reason Start Date Expiration Date Visits Requested Visits Authorized [id number] Authorized Auto-Generat ed Referral 12/04/2022 01/03/2024 1 1 Specialty Diagnoses / Procedures Referred By Contac t Referred To Contact CT IMAGING Diagnoses New onset of headaches after age 51 Procedures CTA HEAD W IVCON CT ANGIOGRAPHY HEAD W/CONTRAST/NONCONTRAST Alex Brown APRN.GRAVEL SCREENER [address] [place] [address] Imaging Referral ID Status Reason Start Date Expiration Date Visits Requested Visits Authorized [id number] Authorized Auto-Generat ed Referral 02/15/2023 03/16/2024 1 1 Specialty Diagnoses / Procedures Referred By Contac t Referred To Contact Allergy Diagnoses Runny nose Procedures CONSULT TO ALLERGY/IMMUNOLOGY OFFICE/OUTPATIENT [facility] 60-74 MINUTES Alex Brown APRN.GRAVEL SCREENER [address] [place] [address] Referral ID Status Reason Start Date Expiration Date Visits Requested Visits Authorized [id number] Pending Review PCP Requested Referral 02/15/2023 02/15/2024 1 1 Specialty Diagnoses / Procedures Referred By Contac t Referred To Contact General Surgery Diagnoses S/p small bowel obstruction Procedures CONSULT TO GENERAL SURGERY OFFICE/OUTPATIENT [facility] 60-74 MINUTES Alex Brown APRN.GRAVEL SCREENER [address] [place] [address] Referral ID Status Reason Start Date Expiration Date Visits Requested Visits Authorized [id number] Pending Review PCP Requested Referral 06/04/2023 06/03/2024 1 1 Specialty Diagnoses / Procedures Referred By Contac t Referred To Contact General Surgery Diagnoses Axillary lump, right Procedures CONSULT TO GENERAL SURGERY OFFICE/OUTPATIENT [facility] 60-74 MINUTES Shanita Green PA-C [address] [place] [id number] Referral ID Status Reason Start Date Expiration Date Visits Requested Visits Authorized [id number] Pending Review PCP Requested Referral 06/10/2024 1 1 Specialty Diagnoses / Procedures Referred By Contac t Referred To Contact CT IMAGING Diagnoses New onset of headaches after age 51 Procedures CTA HEAD W IVCON CT ANGIOGRAPHY HEAD W/CONTRAST/NONCONTRAST Alex Brown APRN.GRAVEL SCREENER [address] [place] [address] [address] [place] [address] Referral ID Status Reason Start Date Expiration Date V isits Requested Visits Authorized [id number] Closed Auto-Generate d Referral 02/15/2023 03/16/2024 1 1 Specialty Diagnoses / Procedures Referred By Contac t Referred To Contact CT IMAGING Diagnoses Weight loss Ex-smoker Lung nodules Procedures CT CHEST WO IVCON DIAGNOSTIC COMPUTED TOMOGRAPHY THORAX W/O CNTRST Rito Camp MD [address] [place] [address] [place] [address] Referral ID Status Reason Start Date Expiration Date V isits Requested Visits Authorized [id number] Closed Auto-Generate d Referral 11/19/2022 12/19/2023 1 1 Specialty Diagnoses / Procedures Referred By Contac t Referred To Contact Orthopedics Diagnoses Fall, initial encounter Acute pain of left shoulder Procedures CONSULT TO ORTHOPAEDICS OFFICE/OUTPATIENT [facility] 60 MINUTES Alex Brown, APPLICATION PACKAGER.GRAVEL SCREENER [address] [place], [place] [id number] Referral ID Status Reason Start Date Expiration Date Visits Requested Visits Authorized [id number] Authorized PCP Requested Referral 03/26/2024 03/26/2025 1 1 Specialty Diagnoses / Procedures Referred By Contac t Referred To Contact MR IMAGING Diagnoses Fall, initial encounter Acute pain of left shoulder Procedures MRI SHOULDER WO/W IVCON LEFT MRI ANY JT UPPER EXTREMITY W/O & W/CONTR Alex Lora, APPLICATION PACKAGER.GRAVEL SCREENER [address] [place] [address] [place] [address] Referral ID Status Reason Start Date Expiration Date Visits Requested Visits Authorized [id number] New Request Auto-Generat ed Referral 03/26/2024 04/25/2025 1 1 Specialty Diagnoses / Procedures Referred By Contac t Referred To Contact MR IMAGING Diagnoses Acute pain of left shoulder Procedures MRI SHOULDER WO IVCON LEFT MRI ANY JT UPPER EXTREMITY W/O CONTRAST Alex Lora, APPLICATION PACKAGER.GRAVEL SCREENER [facility] [place] [address] [place] [address] Referral ID Status Reason Start Date Expiration Date V isits Requested Visits Authorized [id number] Closed Auto-Generate d Referral 04/24/2024 07/22/2024 1 1 Specialty Diagnoses / Procedures Referred By Contac t Referred To Contact [facility] Diagnoses Tendinopathy of rotator cuff, unspecified laterality Procedures CONSULT TO PHYSICAL THERAPY PHYSICAL THERAPY EVALUATION HIGH COMPLEX 45 MINS Alex Brown APRN.GRAVEL SCREENER [address] [place] [address] [facility] [address] [address] Referral ID Status Reason Start Date Expiration Date Visits Requested Visits Authorized [id number] Pending Review Auto-Generat ed Referral 04/27/2024 04/27/2025 1 1 Specialty Diagnoses / Procedures Referred By Contac t Referred To Contact [facility] Diagnoses Left hip pain Procedures CONSULT TO PHYSICAL THERAPY PHYSICAL THERAPY EVALUATION HIGH COMPLEX 45 MINS Shanita Green PA-C [address] [place] [address] [facility] [address] [address] Referral ID Status Reason Start Date Expiration Date V isits Requested Visits Authorized [id number] Closed Auto-Generate d Referral 08/05/2024 08/05/2025 1 [...] or prosecute any alcohol or drug abuse patient.[facility] Center[facility] the event this information is protected by the Federal Confidentiality of Alcohol and Drug Abuse Patient Records regulations: The Federal rules restrict any use of the information to criminally investigate or prosecute any alcohol or drug abuse patient.[facility] Center[facility] the event this information is protected by the Federal Confidentiality of Alcohol and Drug Abuse Patient Records regulations: The Federal rules restrict any use of the information to criminally investigate or prosecute any alcohol or drug abuse patient.[facility] Center[facility] the event this information is protected by the Federal Confidentiality of Alcohol and Drug Abuse Patient Records regulations: The Federal rules restrict any use of the information to criminally investigate or prosecute any alcohol or drug abuse patient.[facility] CenterIn the event this information is protected by the Federal Confidentiality of Alcohol and Drug Abuse Patient Records regulations: The Federal rules restrict any use of the information to criminally investigate or prosecute any alcohol or drug abuse patient.[facility] CenterIn the event this information is protected by the Federal Confidentiality of Alcohol and Drug Abuse Patient Records regulations: The Federal rules restrict any use of the information to criminally investigate or prosecute any alcohol or drug abuse patient.[facility] CenterIn the event this information is protected by the Federal Confidentiality of Alcohol and Drug Abuse Patient Records regulations: The Federal rules restrict any use of the information to criminally investigate or prosecute any alcohol or drug abuse patient.[facility] CenterIn the event this information is protected by the Federal Confidentiality of Alcohol and Drug Abuse Patient Records regulations: The Federal rules restrict any use of the information to criminally investigate or prosecute any alcohol or drug abuse patient.[facility] CenterIn the event this information is protected by the Federal Confidentiality of Alcohol and Drug Abuse Patient Records regulations: The Federal rules restrict any use of the information to criminally investigate or prosecute any alcohol or drug abuse patient.[facility] CenterIn the event this information is protected by the Federal Confidentiality of Alcohol and Drug Abuse Patient Records regulations: The Federal rules restrict any use of the information to criminally investigate or prosecute any alcohol or drug abuse patient.[facility] CenterIn the event this information is protected by the Federal Confidentiality of Alcohol and Drug Abuse Patient Records regulations: The Federal rules restrict any use of the information to criminally investigate or prosecute any alcohol or drug abuse patient.[facility] CenterIn the event this information is protected by the Federal Confidentiality of Alcohol and Drug Abuse Patient Records regulations: The Federal rules restrict any use of the information to criminally investigate or prosecute any alcohol or drug abuse patient.[facility] CenterIn the event this information is protected by the Federal Confidentiality of Alcohol and Drug Abuse Patient Records regulations: The Federal rules restrict any use of the information to criminally investigate or prosecute any alcohol or drug abuse patient.[facility] CenterIn the event this information is protected by the Federal Confidentiality of Alcohol and Drug Abuse Patient Records regulations: The Federal rules restrict any use of the information to criminally investigate or prosecute any alcohol or drug abuse patient.[facility] CenterIn the event this information is protected by the Federal Confidentiality of Alcohol and Drug Abuse Patient Records regulations: The Federal rules restrict any use of the information to criminally investigate or prosecute any alcohol or drug abuse patient.[facility] CenterIn the event this information is protected by the Federal Confidentiality of Alcohol and Drug Abuse Patient Records regulations: The Federal rules restrict any use of the information to criminally investigate or prosecute any alcohol or drug abuse patient.[facility] CenterIn the event this information is protected by the Federal Confidentiality of Alcohol and Drug Abuse Patient Records regulations: The Federal rules restrict any use of the information to criminally investigate or prosecute any alcohol or drug abuse patient.[facility] CenterIn the event this information is protected by the Federal Confidentiality of Alcohol and Drug Abuse Patient Records regulations: The Federal rules restrict any use of the information to criminally investigate or prosecute any alcohol or drug abuse patient.[facility] CenterIn the event this information is protected by the Federal Confidentiality of Alcohol and Drug Abuse Patient Records regulations: The Federal rules restrict any use of the information to criminally investigate or prosecute any alcohol or drug abuse patient.[facility] CenterIn the event this information is protected by the Federal Confidentiality of Alcohol and Drug Abuse Patient Records regulations: The Federal rules restrict any use of the information to criminally investigate or prosecute any alcohol or drug abuse patient.[facility] CenterIn the event this information is protected by the Federal Confidentiality of Alcohol and Drug Abuse Patient Records regulations: The Federal rules restrict any use of the information to criminally investigate or prosecute any alcohol or drug abuse patient.[facility] CenterIn the event this information is protected by the Federal Confidentiality of Alcohol and Drug Abuse Patient Records regulations: The Federal rules restrict any use of the information to criminally investigate or prosecute any alcohol or drug abuse patient.[facility] CenterIn the event this information is protected by the Federal Confidentiality of Alcohol and Drug Abuse Patient Records regulations: The Federal rules restrict any use of the information to criminally investigate or prosecute any alcohol or drug abuse patient.[facility] CenterIn the event this information is protected by the Federal Confidentiality of Alcohol and Drug Abuse Patient Records regulations: The Federal rules restrict any use of the information to criminally investigate or prosecute any alcohol or drug abuse patient.[facility] CenterIn the event this information is protected by the Federal Confidentiality of Alcohol and Drug Abuse Patient Records regulations: The Federal rules restrict any use of the information to criminally investigate or prosecute any alcohol or drug abuse patient.[facility] CenterIn the event this information is protected by the Federal Confidentiality of Alcohol and Drug Abuse Patient Records regulations: The Federal rules restrict any use of the information to criminally investigate or prosecute any alcohol or drug abuse patient.[facility] CenterIn the event this information is protected by the Federal Confidentiality of Alcohol and Drug Abuse Patient Records regulations: The Federal rules restrict any use of the information to criminally investigate or prosecute any alcohol or drug abuse patient.[facility] CenterIn the event this information is protected by the Federal Confidentiality of Alcohol and Drug Abuse Patient Records regulations: The Federal rules restrict any use of the information to criminally investigate or prosecute any alcohol or drug abuse patient.[facility] CenterIn the event this information is protected by the Federal Confidentiality of Alcohol and Drug Abuse Patient Records regulations: The Federal rules restrict any use of the information to criminally investigate or prosecute any alcohol or drug abuse patient.[facility] CenterIn the event this information is protected by the Federal Confidentiality of Alcohol and Drug Abuse Patient Records regulations: The Federal rules restrict any use of the information to criminally investigate or prosecute any alcohol or drug abuse patient.[facility] CenterIn the event this information is protected by the Federal Confidentiality of Alcohol and Drug Abuse Patient Records regulations: The Federal rules restrict any use of the information to criminally investigate or prosecute any alcohol or drug abuse patient.[facility] CenterIn the event this information is protected by the Federal Confidentiality of Alcohol and Drug Abuse Patient Records regulations: The Federal rules restrict any use of the information to criminally investigate or prosecute any alcohol or drug abuse patient.[facility] CenterIn the event this information is protected by the Federal Confidentiality of Alcohol and Drug Abuse Patient Records regulations: The Federal rules restrict any use of the information to criminally investigate or prosecute any alcohol or drug abuse patient.[facility] CenterIn the event this information is protected by the Federal Confidentiality of Alcohol and Drug Abuse Patient Records regulations: The Federal rules restrict any use of the information to criminally investigate or prosecute any alcohol or drug abuse patient.[facility] CenterIn the event this information is protected by the Federal Confidentiality of Alcohol and Drug Abuse Patient Records regulations: The Federal rules restrict any use of the information to criminally investigate or prosecute any alcohol or drug abuse patient.[facility] CenterIn the event this information is protected by the Federal Confidentiality of Alcohol and Drug Abuse Patient Records regulations: The Federal rules restrict any use of the information to criminally investigate or prosecute any alcohol or drug abuse patient.[facility] CenterIn the event this information is protected by the Federal Confidentiality of Alcohol and Drug Abuse Patient Records regulations: The Federal rules restrict any use of the information to criminally investigate or prosecute any alcohol or drug abuse patient.[facility] CenterIn the event this information is protected by the Federal Confidentiality of Alcohol and Drug Abuse Patient Records regulations: The Federal rules restrict any use of the information to criminally investigate or prosecute any alcohol or drug abuse patient.[facility] CenterIn the event this information is protected by the Federal Confidentiality of Alcohol and Drug Abuse Patient Records regulations: The Federal rules restrict any use of the information to criminally investigate or prosecute any alcohol or drug abuse patient.[facility] CenterIn the event this information is protected by the Federal Confidentiality of Alcohol and Drug Abuse Patient Records regulations: The Federal rules restrict any use of the information to criminally investigate or prosecute any alcohol or drug abuse patient.[facility] CenterIn the event this information is protected by the Federal Confidentiality of Alcohol and Drug Abuse Patient Records regulations: The Federal rules restrict any use of the information to criminally investigate or prosecute any alcohol or drug abuse patient.[facility] CenterIn the event this information is protected by the Federal Confidentiality of Alcohol and Drug Abuse Patient Records regulations: The Federal rules restrict any use of the information to criminally investigate or prosecute any alcohol or drug abuse patient.[facility] CenterIn the event this information is protected by the Federal Confidentiality of Alcohol and Drug Abuse Patient Records regulations: The Federal rules restrict any use of the information to criminally investigate or prosecute any alcohol or drug abuse patient.[facility] CenterIn the event this information is protected by the Federal Confidentiality of Alcohol and Drug Abuse Patient Records regulations: The Federal rules restrict any use of the information to criminally investigate or prosecute any alcohol or drug abuse patient.[facility] CenterIn the event this information is protected by the Federal Confidentiality of Alcohol and Drug Abuse Patient Records regulations: The Federal rules restrict any use of the information to criminally investigate or prosecute any alcohol or drug abuse patient.[facility] CenterIn the event this information is protected by the Federal Confidentiality of Alcohol and Drug Abuse Patient Records regulations: The Federal rules restrict any use of the information to criminally investigate or prosecute any alcohol or drug abuse patient.[facility] CenterIn the event this information is protected by the Federal Confidentiality of Alcohol and Drug Abuse Patient Records regulations: The Federal rules restrict any use of the information to criminally investigate or prosecute any alcohol or drug abuse patient.[facility] CenterIn the event this information is protected by the Federal Confidentiality of Alcohol and Drug Abuse Patient Records regulations: The Federal rules restrict any use of the information to criminally investigate or prosecute any alcohol or drug abuse patient.[facility] CenterIn the event this information is protected by the Federal Confidentiality of Alcohol and Drug Abuse Patient Records regulations: The Federal rules restrict any use of the information to criminally investigate or prosecute any alcohol or drug abuse patient.[facility] CenterIn the event this information is protected by the Federal Confidentiality of Alcohol and Drug Abuse Patient Records regulations: The Federal rules restrict any use of the information to criminally investigate or prosecute any alcohol or drug abuse patient.[facility] CenterIn the event this information is protected by the Federal Confidentiality of Alcohol and Drug Abuse Patient Records regulations: The Federal rules restrict any use of the information to criminally investigate or prosecute any alcohol or drug abuse patient.[facility]In the event this information is protected by the Federal Confidentiality of Alcohol and Drug Abuse Patient Records regulations: The Federal rules restrict any use of the information to criminally investigate or prosecute any alcohol or drug abuse patient.[facility] CenterIn the event this information is protected by the Federal Confidentiality of Alcohol and Drug Abuse Patient Records regulations: The Federal rules restrict any use of the information to criminally investigate or prosecute any alcohol or drug abuse patient.[facility] CenterIn the event this information is protected by the Federal Confidentiality of Alcohol and Drug Abuse Patient Records regulations: The Federal rules restrict any use of the information to criminally investigate or prosecute any alcohol or drug abuse patient.[facility] CenterIn the event this information is protected by the Federal Confidentiality of Alcohol and Drug Abuse Patient Records regulations: The Federal rules restrict any use of the information to criminally investigate or prosecute any alcohol or drug abuse patient.[facility] CenterIn the event this information is protected by the Federal Confidentiality of Alcohol and Drug Abuse Patient Records regulations: The Federal rules restrict any use of the information to criminally investigate or prosecute any alcohol or drug abuse patient.[facility] CenterIn the event this information is protected by the Federal Confidentiality of Alcohol and Drug Abuse Patient Records regulations: The Federal rules restrict any use of the information to criminally investigate or prosecute any alcohol or drug abuse patient.[facility] CenterIn the event this information is protected by the Federal Confidentiality of Alcohol and Drug Abuse Patient Records regulations: The Federal rules restrict any use of the information to criminally investigate or prosecute any alcohol or drug abuse patient.[facility] CenterIn the event this information is protected by the Federal Confidentiality of Alcohol and Drug Abuse Patient Records regulations: The Federal rules restrict any use of the information to criminally investigate or prosecute any alcohol or drug abuse patient.[facility] CenterIn the event this information is protected by the Federal Confidentiality of Alcohol and Drug Abuse Patient Records regulations: The Federal rules restrict any use of the information to criminally investigate or prosecute any alcohol or drug abuse patient.[facility] CenterIn the event this information is protected by the Federal Confidentiality of Alcohol and Drug Abuse Patient Records regulations: The Federal rules restrict any use of the information to criminally investigate or prosecute any alcohol or drug abuse patient.[facility] CenterIn the event this information is protected by the Federal Confidentiality of Alcohol and Drug Abuse Patient Records regulations: The Federal rules restrict any use of the information to criminally investigate or prosecute any alcohol or drug abuse patient.[facility]In the event this information is protected by the Federal Confidentiality of Alcohol and Drug Abuse Patient Records regulations: The Federal rules restrict any use of the information to criminally investigate or prosecute any alcohol or drug abuse patient.[facility]In the event this information is protected by the Federal Confidentiality of Alcohol and Drug Abuse Patient Records regulations: The Federal rules restrict any use of the information to criminally investigate or prosecute any alcohol or drug abuse patient.[facility] CenterIn the event this information is protected by the Federal Confidentiality of Alcohol and Drug Abuse Patient Records regulations: The Federal rules restrict any use of the information to criminally investigate or prosecute any alcohol or drug abuse patient.[facility] CenterIn the event this information is protected by the Federal Confidentiality of Alcohol and Drug Abuse Patient Records regulations: The Federal rules restrict any use of the information to criminally investigate or prosecute any alcohol or drug abuse patient.[facility]In the event this information is protected by the Federal Confidentiality of Alcohol and Drug Abuse Patient Records regulations: The Federal rules restrict any use of the information to criminally investigate or prosecute any alcohol or drug abuse patient.[facility]In the event this information is protected by the Federal Confidentiality of Alcohol and Drug Abuse Patient Records regulations: The Federal rules restrict any use of the information to criminally investigate or prosecute any alcohol or drug abuse patient.[facility]In the event this information is protected by the Federal Confidentiality of Alcohol and Drug Abuse Patient Records regulations: The Federal rules restrict any use of the information to criminally investigate or prosecute any alcohol or drug abuse patient.[facility]In the event this information is protected by the Federal Confidentiality of Alcohol and Drug Abuse Patient Records regulations: The Federal rules restrict any use of the information to criminally investigate or prosecute any alcohol or drug abuse patient.[facility]In the event this information is protected by the Federal Confidentiality of Alcohol and Drug Abuse Patient Records regulations: The Federal rules restrict any use of the information to criminally investigate or prosecute any alcohol or drug abuse patient.[facility] CenterIn the event this information is protected by the Federal Confidentiality of Alcohol and Drug Abuse Patient Records regulations: The Federal rules restrict any use of the information to criminally investigate or prosecute any alcohol or drug abuse patient.[facility] CenterIn the event this information is protected by the Federal Confidentiality of Alcohol and Drug Abuse Patient Records regulations: The Federal rules restrict any use of the information to criminally investigate or prosecute any alcohol or drug abuse patient.[facility] CenterIn the event this information is protected by the Federal Confidentiality of Alcohol and Drug Abuse Patient Records regulations: The Federal rules restrict any use of the information to criminally investigate or prosecute any alcohol or drug abuse patient.[facility] CenterIn the event this information is protected by the Federal Confidentiality of Alcohol and Drug Abuse Patient Records regulations: The Federal rules restrict any use of the information to criminally investigate or prosecute any alcohol or drug abuse patient.[facility] CenterIn the event this information is protected by the Federal Confidentiality of Alcohol and Drug Abuse Patient Records regulations: The Federal rules restrict any use of the information to criminally investigate or prosecute any alcohol or drug abuse patient.[facility] CenterIn the event this information is protected by the Federal Confidentiality of Alcohol and Drug Abuse Patient Records regulations: The Federal rules restrict any use of the information to criminally investigate or prosecute any alcohol or drug abuse patient.[facility] CenterIn the event this information is protected by the Federal Confidentiality of Alcohol and Drug Abuse Patient Records regulations: The Federal rules restrict any use of the information to criminally investigate or prosecute any alcohol or drug abuse patient.[facility] CenterIn the event this information is protected by the Federal Confidentiality of Alcohol and Drug Abuse Patient Records regulations: The Federal rules restrict any use of the information to criminally investigate or prosecute any alcohol or drug abuse patient.[facility] CenterIn the event this information is protected by the Federal Confidentiality of Alcohol and Drug Abuse Patient Records regulations: The Federal rules restrict any use of the information to criminally investigate or prosecute any alcohol or drug abuse patient.[facility]In the event this information is protected by the Federal Confidentiality of Alcohol and Drug Abuse Patient Records regulations: The Federal rules restrict any use of the information to criminally investigate or prosecute any alcohol or drug abuse patient.[facility]In the event this information is protected by the Federal Confidentiality of Alcohol and Drug Abuse Patient Records regulations: The Federal rules restrict any use of the information to criminally investigate or prosecute any alcohol or drug abuse patient.[facility]In the event this information is protected by the Federal Confidentiality of Alcohol and Drug Abuse Patient Records regulations: The Federal rules restrict any use of the information to criminally investigate or prosecute any alcohol or drug abuse patient.[facility] CenterIn the event this information is protected by the Federal Confidentiality of Alcohol and Drug Abuse Patient Records regulations: The Federal rules restrict any use of the information to criminally investigate or prosecute any alcohol or drug abuse patient.[facility]In the event this information is protected by the Federal Confidentiality of Alcohol and Drug Abuse Patient Records regulations: The Federal rules restrict any use of the information to criminally investigate or prosecute any alcohol or drug abuse patient.[facility]In the event this information is protected by the Federal Confidentiality of Alcohol and Drug Abuse Patient Records regulations: The Federal rules restrict any use of the information to criminally investigate or prosecute any alcohol or drug abuse patient.[facility] CenterIn the event this information is protected by the Federal Confidentiality of Alcohol and Drug Abuse Patient Records regulations: The Federal rules restrict any use of the information to criminally investigate or prosecute any alcohol or drug abuse patient.[facility]In the event this information is protected by the Federal Confidentiality of Alcohol and Drug Abuse Patient Records regulations: The Federal rules restrict any use of the information to criminally investigate or prosecute any alcohol or drug abuse patient.[facility] CenterIn the event this information is protected by the Federal Confidentiality of Alcohol and Drug Abuse Patient Records regulations: The Federal rules restrict any use of the information to criminally investigate or prosecute any alcohol or drug abuse patient.[facility] CenterIn the event this information is protected by the Federal Confidentiality of Alcohol and Drug Abuse Patient Records regulations: The Federal rules restrict any use of the information to criminally investigate or prosecute any alcohol or drug abuse patient.[facility] CenterIn the event this information is protected by the Federal Confidentiality of Alcohol and Drug Abuse Patient Records regulations: The Federal rules restrict any use of the information to criminally investigate or prosecute any alcohol or drug abuse patient.[facility] CenterIn the event this information is protected by the Federal Confidentiality of Alcohol and Drug Abuse Patient Records regulations: The Federal rules restrict any use of the information to criminally investigate or prosecute any alcohol or drug abuse patient.[facility] CenterIn the event this information is protected by the Federal Confidentiality of Alcohol and Drug Abuse Patient Records regulations: The Federal rules restrict any use of the information to criminally investigate or prosecute any alcohol or drug abuse patient.[facility] [facility] CenterIn the event this information is protected by the Federal Confidentiality of Alcohol and Drug Abuse Patient Records regulations: The Federal rules restrict any use of the information to criminally investigate or prosecute any alcohol or drug abuse patient.[facility]In the event this information is protected by the Federal Confidentiality of Alcohol and Drug Abuse Patient Records regulations: The Federal rules restrict any use of the information to criminally investigate or prosecute any alcohol or drug abuse patient.[facility]In the event this information is protected by the Federal Confidentiality of Alcohol and Drug Abuse Patient Records regulations: The Federal rules restrict any use of the information to criminally investigate or prosecute any alcohol or drug abuse patient.[facility]In the event this information is protected by the Federal Confidentiality of Alcohol and Drug Abuse Patient Records regulations: The Federal rules restrict any use of the information to criminally investigate or prosecute any alcohol or drug abuse patient.[facility] CenterIn the event this information is protected by the Federal Confidentiality of Alcohol and Drug Abuse Patient Records regulations: The Federal rules restrict any use of the information to criminally investigate or prosecute any alcohol or drug abuse patient.[facility] CenterIn the event this information is protected by the Federal Confidentiality of Alcohol and Drug Abuse Patient Records regulations: The Federal rules restrict any use of the information to criminally investigate or prosecute any alcohol or drug abuse patient.[facility]In the event this information is protected by the Federal Confidentiality of Alcohol and Drug Abuse Patient Records regulations: The Federal rules restrict any use of the information to criminally investigate or prosecute any alcohol or drug abuse patient.[facility] CenterIn the event this information is protected by the Federal Confidentiality of Alcohol and Drug Abuse Patient Records regulations: The Federal rules restrict any use of the information to criminally investigate or prosecute any alcohol or drug abuse patient.[facility] CenterIn the event this information is protected by the Federal Confidentiality of Alcohol and Drug Abuse Patient Records regulations: The Federal rules restrict any use of the information to criminally investigate or prosecute any alcohol or drug abuse patient.[facility] CenterIn the event this information is protected by the Federal Confidentiality of Alcohol and Drug Abuse Patient Records regulations: The Federal rules restrict any use of the information to criminally investigate or prosecute any alcohol or drug abuse patient.[facility] CenterIn the event this information is protected by the Federal Confidentiality of Alcohol and Drug Abuse Patient Records regulations: The Federal rules restrict any use of the information to criminally investigate or prosecute any alcohol or drug abuse patient.[facility] CenterIn the event this information is protected by the Federal Confidentiality of Alcohol and Drug Abuse Patient Records regulations: The Federal rules restrict any use of the information to criminally investigate or prosecute any alcohol or drug abuse patient.[facility] CenterIn the event this information is protected by the Federal Confidentiality of Alcohol and Drug Abuse Patient Records regulations: The Federal rules restrict any use of the information to criminally investigate or prosecute any alcohol or drug abuse patient.[facility] CenterIn the event this information is protected by the Federal Confidentiality of Alcohol and Drug Abuse Patient Records regulations: The Federal rules restrict any use of the information to criminally investigate or prosecute any alcohol or drug abuse patient.[facility] CenterIn the event this information is protected by the Federal Confidentiality of Alcohol and Drug Abuse Patient Records regulations: The Federal rules restrict any use of the information to criminally investigate or prosecute any alcohol or drug abuse patient.[facility] CenterIn the event this information is protected by the Federal Confidentiality of Alcohol and Drug Abuse Patient Records regulations: The Federal rules restrict any use of the information to criminally investigate or prosecute any alcohol or drug abuse patient.[facility] CenterIn the event this information is protected by the Federal Confidentiality of Alcohol and Drug Abuse Patient Records regulations: The Federal rules restrict any use of the information to criminally investigate or prosecute any alcohol or drug abuse patient.[facility] CenterIn the event this information is protected by the Federal Confidentiality of Alcohol and Drug Abuse Patient Records regulations: The Federal rules restrict any use of the information to criminally investigate or prosecute any alcohol or drug abuse patient.[facility] CenterIn the event this information is protected by the Federal Confidentiality of Alcohol and Drug Abuse Patient Records regulations: The Federal rules restrict any use of the information to criminally investigate or prosecute any alcohol or drug abuse patient.[facility] CenterIn the event this information is protected by the Federal Confidentiality of Alcohol and Drug Abuse Patient Records regulations: The Federal rules restrict any use of the information to criminally investigate or prosecute any alcohol or drug abuse patient.[facility] CenterIn the event this information is protected by the Federal Confidentiality of Alcohol and Drug Abuse Patient Records regulations: The Federal rules restrict any use of the information to criminally investigate or prosecute any alcohol or drug abuse patient.[facility] CenterIn the event this information is protected by the Federal Confidentiality of Alcohol and Drug Abuse Patient Records regulations: The Federal rules restrict any use of the information to criminally investigate or prosecute any alcohol or drug abuse patient.[facility] CenterIn the event this information is protected by the Federal Confidentiality of Alcohol and Drug Abuse Patient Records regulations: The Federal rules restrict any use of the information to criminally investigate or prosecute any alcohol or drug abuse patient.[facility] CenterIn the event this information is protected by the Federal Confidentiality of Alcohol and Drug Abuse Patient Records regulations: The Federal rules restrict any use of the information to criminally investigate or prosecute any alcohol or drug abuse patient.[facility] CenterIn the event this information is protected by the Federal Confidentiality of Alcohol and Drug Abuse Patient Records regulations: The Federal rules restrict any use of the information to criminally investigate or prosecute any alcohol or drug abuse patient.[facility] CenterIn the event this information is protected by the Federal Confidentiality of Alcohol and Drug Abuse Patient Records regulations: The Federal rules restrict any use of the information to criminally investigate or prosecute any alcohol or drug abuse patient.[facility] CenterIn the event this information is protected by the Federal Confidentiality of Alcohol and Drug Abuse Patient Records regulations: The Federal rules restrict any use of the information to criminally investigate or prosecute any alcohol or drug abuse patient.[facility] CenterIn the event this information is protected by the Federal Confidentiality of Alcohol and Drug Abuse Patient Records regulations: The Federal rules restrict any use of the information to criminally investigate or prosecute any alcohol or drug abuse patient.[facility] CenterIn the event this information is protected by the Federal Confidentiality of Alcohol and Drug Abuse Patient Records regulations: The Federal rules restrict any use of the information to criminally investigate or prosecute any alcohol or drug abuse patient.[facility] CenterIn the event this information is protected by the Federal Confidentiality of Alcohol and Drug Abuse Patient Records regulations: The Federal rules restrict any use of the information to criminally investigate or prosecute any alcohol or drug abuse patient.[facility] CenterIn the event this information is protected by the Federal Confidentiality of Alcohol and Drug Abuse Patient Records regulations: The Federal rules restrict any use of the information to criminally investigate or prosecute any alcohol or drug abuse patient.[facility]In the event this information is protected by the Federal Confidentiality of Alcohol and Drug Abuse Patient Records regulations: The Federal rules restrict any use of the information to criminally investigate or prosecute any alcohol or drug abuse patient.[facility]In the event this information is protected by the Federal Confidentiality of Alcohol and Drug Abuse Patient Records regulations: The Federal rules restrict any use of the information to criminally investigate or prosecute any alcohol or drug abuse patient.[facility]In the event this information is protected by the Federal Confidentiality of Alcohol and Drug Abuse Patient Records regulations: The Federal rules restrict any use of the information to criminally investigate or prosecute any alcohol or drug abuse patient.[facility]In the event this information is protected by the Federal Confidentiality of Alcohol and Drug Abuse Patient Records regulations: The Federal rules restrict any use of the information to criminally investigate or prosecute any alcohol or drug abuse patient.[facility]In the event this information is protected by the Federal Confidentiality of Alcohol and Drug Abuse Patient Records regulations: The Federal rules restrict any use of the information to criminally investigate or prosecute any alcohol or drug abuse patient.[facility]In the event this information is protected by the Federal Confidentiality of Alcohol and Drug Abuse Patient Records regulations: The Federal rules restrict any use of the information to criminally investigate or prosecute any alcohol or drug abuse patient.[facility]In the event this information is protected by the Federal Confidentiality of Alcohol and Drug Abuse Patient Records regulations: The Federal rules restrict any use of the information to criminally investigate or prosecute any alcohol or drug abuse patient.[facility]In the event this information is protected by the Federal Confidentiality of Alcohol and Drug Abuse Patient Records regulations: The Federal rules restrict any use of the information to criminally investigate or prosecute any alcohol or drug abuse patient.[facility]In the event this information is protected by the Federal Confidentiality of Alcohol and Drug Abuse Patient Records regulations: The Federal rules restrict any use of the information to criminally investigate or prosecute any alcohol or drug abuse patient.[facility]In the event this information is protected by the Federal Confidentiality of Alcohol and Drug Abuse Patient Records regulations: The Federal rules restrict any use of the information to criminally investigate or prosecute any alcohol or drug abuse patient.[facility]In the event this information is protected by the Federal Confidentiality of Alcohol and Drug Abuse Patient Records regulations: The Federal rules restrict any use of the information to criminally investigate or prosecute any alcohol or drug abuse patient.[facility]In the event this information is protected by the Federal Confidentiality of Alcohol and Drug Abuse Patient Records regulations: The Federal rules restrict any use of the information to criminally investigate or prosecute any alcohol or drug abuse patient.[facility]In the event this information is protected by the Federal Confidentiality of Alcohol and Drug Abuse Patient Records regulations: The Federal rules restrict any use of the information to criminally investigate or prosecute any alcohol or drug abuse patient.[facility]In the event this information is protected by the Federal Confidentiality of Alcohol and Drug Abuse Patient Records regulations: The Federal rules restrict any use of the information to criminally investigate or prosecute any alcohol or drug abuse patient.[facility]In the event this information is protected by the Federal Confidentiality of Alcohol and Drug Abuse Patient Records regulations: The Federal rules restrict any use of the information to criminally investigate or prosecute any alcohol or drug abuse patient.[facility]In the event this information is protected by the Federal Confidentiality of Alcohol and Drug Abuse Patient Records regulations: The Federal rules restrict any use of the information to criminally investigate or prosecute any alcohol or drug abuse patient.[facility]In the event this information is protected by the Federal Confidentiality of Alcohol and Drug Abuse Patient Records regulations: The Federal rules restrict any use of the information to criminally investigate or prosecute any alcohol or drug abuse patient.[facility]In the event this information is protected by the Federal Confidentiality of Alcohol and Drug Abuse Patient Records regulations: The Federal rules restrict any use of the information to criminally investigate or prosecute any alcohol or drug abuse patient.[facility]In the event this information is protected by the Federal Confidentiality of Alcohol and Drug Abuse Patient Records regulations: The Federal rules restrict any use of the information to criminally investigate or prosecute any alcohol or drug abuse patient.[facility]In the event this information is protected by the Federal Confidentiality of Alcohol and Drug Abuse Patient Records regulations: The Federal rules restrict any use of the information to criminally investigate or prosecute any alcohol or drug abuse patient.[facility]In the event this information is protected by the Federal Confidentiality of Alcohol and Drug Abuse Patient Records regulations: The Federal rules restrict any use of the information to criminally investigate or prosecute any alcohol or drug abuse patient.[facility]In the event this information is protected by the Federal Confidentiality of Alcohol and Drug Abuse Patient Records regulations: The Federal rules restrict any use of the information to criminally investigate or prosecute any alcohol or drug abuse patient.[facility]In the event this information is protected by the Federal Confidentiality of Alcohol and Drug Abuse Patient Records regulations: The Federal rules restrict any use of the information to criminally investigate or prosecute any alcohol or drug abuse patient.[facility]In the event this information is protected by the Federal Confidentiality of Alcohol and Drug Abuse Patient Records regulations: The Federal rules restrict any use of the information to criminally investigate or prosecute any alcohol or drug abuse patient.[facility]In the event this information is protected by the Federal Confidentiality of Alcohol and Drug Abuse Patient Records regulations: The Federal rules restrict any use of the information to criminally investigate or prosecute any alcohol or drug abuse patient.[facility]In the event this information is protected by the Federal Confidentiality of Alcohol and Drug Abuse Patient Records regulations: The Federal rules restrict any use of the information to criminally investigate or prosecute any alcohol or drug abuse patient.[facility]In the event this information is protected by the Federal Confidentiality of Alcohol and Drug Abuse Patient Records regulations: The Federal rules restrict any use of the information to criminally investigate or prosecute any alcohol or drug abuse patient.[facility]In the event this information is protected by the Federal Confidentiality of Alcohol and Drug Abuse Patient Records regulations: The Federal rules restrict any use of the information to criminally investigate or prosecute any alcohol or drug abuse patient.[facility]In the event this information is protected by the Federal Confidentiality of Alcohol and Drug Abuse Patient Records regulations: The Federal rules restrict any use of the information to criminally investigate or prosecute any alcohol or drug abuse patient.[facility]In the event this information is protected by the Federal Confidentiality of Alcohol and Drug Abuse Patient Records regulations: The Federal rules restrict any use of the information to criminally investigate or prosecute any alcohol or drug abuse patient.[facility]In the event this information is protected by the Federal Confidentiality of Alcohol and Drug Abuse Patient Records regulations: The Federal rules restrict any use of the information to criminally investigate or prosecute any alcohol or drug abuse patient.[facility]In the event this information is protected by the Federal Confidentiality of Alcohol and Drug Abuse Patient Records regulations: The Federal rules restrict any use of the information to criminally investigate or prosecute any alcohol or drug abuse patient.[facility]In the event this information is protected by the Federal Confidentiality of Alcohol and Drug Abuse Patient Records regulations: The Federal rules restrict any use of the information to criminally investigate or prosecute any alcohol or drug abuse patient.[facility]In the event this information is protected by the Federal Confidentiality of Alcohol and Drug Abuse Patient Records regulations: The Federal rules restrict any use of the information to criminally investigate or prosecute any alcohol or drug abuse patient.[facility]In the event this information is protected by the Federal Confidentiality of Alcohol and Drug Abuse Patient Records regulations: The Federal rules restrict any use of the information to criminally investigate or prosecute any alcohol or drug abuse patient.[facility]In the event this information is protected by the Federal Confidentiality of Alcohol and Drug Abuse Patient Records regulations: The Federal rules restrict any use of the information to criminally investigate or prosecute any alcohol or drug abuse patient.[facility]In the event this information is protected by the Federal Confidentiality of Alcohol and Drug Abuse Patient Records regulations: The Federal rules restrict any use of the information to criminally investigate or prosecute any alcohol or drug abuse patient.[facility]In the event this information is protected by the Federal Confidentiality of Alcohol and Drug Abuse Patient Records regulations: The Federal rules restrict any use of the information to criminally investigate or prosecute any alcohol or drug abuse patient.[facility]In the event this information is protected by the Federal Confidentiality of Alcohol and Drug Abuse Patient Records regulations: The Federal rules restrict any use of the information to criminally investigate or prosecute any alcohol or drug abuse patient.[facility]In the event this information is protected by the Federal Confidentiality of Alcohol and Drug Abuse Patient Records regulations: The Federal rules restrict any use of the information to criminally investigate or prosecute any alcohol or drug abuse patient.[facility]In the event this information is protected by the Federal Confidentiality of Alcohol and Drug Abuse Patient Records regulations: The Federal rules restrict any use of the information to criminally investigate or prosecute any alcohol or drug abuse patient.[facility]In the event this information is protected by the Federal Confidentiality of Alcohol and Drug Abuse Patient Records regulations: The Federal rules restrict any use of the information to criminally investigate or prosecute any alcohol or drug abuse patient.[facility]In the event this information is protected by the Federal Confidentiality of Alcohol and Drug Abuse Patient Records regulations: The Federal rules restrict any use of the information to criminally investigate or prosecute any alcohol or drug abuse patient.[facility]In the event this information is protected by the Federal Confidentiality of Alcohol and Drug Abuse Patient Records regulations: The Federal rules restrict any use of the information to criminally investigate or prosecute any alcohol or drug abuse patient.[facility]In the event this information is protected by the Federal Confidentiality of Alcohol and Drug Abuse Patient Records regulations: The Federal rules restrict any use of the information to criminally investigate or prosecute any alcohol or drug abuse patient.[facility]In the event this information is protected by the Federal Confidentiality of Alcohol and Drug Abuse Patient Records regulations: The Federal rules restrict any use of the information to criminally investigate or prosecute any alcohol or drug abuse patient.[facility]In the event this information is protected by the Federal Confidentiality of Alcohol and Drug Abuse Patient Records regulations: The Federal rules restrict any use of the information to criminally investigate or prosecute any alcohol or drug abuse patient.[facility]In the event this information is protected by the Federal Confidentiality of Alcohol and Drug Abuse Patient Records regulations: The Federal rules restrict any use of the information to criminally investigate or prosecute any alcohol or drug abuse patient.[facility] CenterIn the event this information is protected by the Federal Confidentiality of Alcohol and Drug Abuse Patient Records regulations: The Federal rules restrict any use of the information to criminally investigate or prosecute any alcohol or drug abuse patient.[facility] CenterIn the event this information is protected by the Federal Confidentiality of Alcohol and Drug Abuse Patient Records regulations: The Federal rules restrict any use of the information to criminally investigate or prosecute any alcohol or drug abuse patient.[facility] CenterIn the event this information is protected by the Federal Confidentiality of Alcohol and Drug Abuse Patient Records regulations: The Federal rules restrict any use of the information to criminally investigate or prosecute any alcohol or drug abuse patient.[facility] CenterIn the event this information is protected by the Federal Confidentiality of Alcohol and Drug Abuse Patient Records regulations: The Federal rules restrict any use of the information to criminally investigate or prosecute any alcohol or drug abuse patient.[facility] CenterIn the event this information is protected by the Federal Confidentiality of Alcohol and Drug Abuse Patient Records regulations: The Federal rules restrict any use of the information to criminally investigate or prosecute any alcohol or drug abuse patient.[facility] CenterIn the event this information is protected by the Federal Confidentiality of Alcohol and Drug Abuse Patient Records regulations: The Federal rules restrict any use of the information to criminally investigate or prosecute any alcohol or drug abuse patient.[facility] CenterIn the event this information is protected by the Federal Confidentiality of Alcohol and Drug Abuse Patient Records regulations: The Federal rules restrict any use of the information to criminally investigate or prosecute any alcohol or drug abuse patient.[facility] CenterIn the event this information is protected by the Federal Confidentiality of Alcohol and Drug Abuse Patient Records regulations: The Federal rules restrict any use of the information to criminally investigate or prosecute any alcohol or drug abuse patient.[facility] CenterIn the event this information is protected by the Federal Confidentiality of Alcohol and Drug Abuse Patient Records regulations: The Federal rules restrict any use of the information to criminally investigate or prosecute any alcohol or drug abuse patient.[facility] CenterIn the event this information is protected by the Federal Confidentiality of Alcohol and Drug Abuse Patient Records regulations: The Federal rules restrict any use of the information to criminally investigate or prosecute any alcohol or drug abuse patient.[facility] CenterIn the event this information is protected by the Federal Confidentiality of Alcohol and Drug Abuse Patient Records regulations: The Federal rules restrict any use of the information to criminally investigate or prosecute any alcohol or drug abuse patient.[facility] CenterIn the event this information is protected by the Federal Confidentiality of Alcohol and Drug Abuse Patient Records regulations: The Federal rules restrict any use of the information to criminally investigate or prosecute any alcohol or drug abuse patient.[facility] CenterIn the event this information is protected by the Federal Confidentiality of Alcohol and Drug Abuse Patient Records regulations: The Federal rules restrict any use of the information to criminally investigate or prosecute any alcohol or drug abuse patient.[facility] CenterIn the event this information is protected by the Federal Confidentiality of Alcohol and Drug Abuse Patient Records regulations: The Federal rules restrict any use of the information to criminally investigate or prosecute any alcohol or drug abuse patient.[facility] CenterIn the event this information is protected by the Federal Confidentiality of Alcohol and Drug Abuse Patient Records regulations: The Federal rules restrict any use of the information to criminally investigate or prosecute any alcohol or drug abuse patient.[facility] Reason for Visit (unrecogniz ed section and content) Reason Comments Physical Therapy Specialty Diagnoses / Procedures Referred By Contac t Referred To Contact Physical Therapy / PHYSICAL THERAPY Diagnoses Left hip pain [M25.552] Procedures NEW RS PT ORTH Shanita Pond PA-C [address] [place] [address] Phone: tel: fax: Mary Ann Oscar PT Referral ID Status Reason Start Date Expiration Date V isits Requested Visits Authorized [id number] Authorized 09/02/2024 09/01/2025 20 20 Reason Comments PT Eval Specialty Diagnoses / Procedures Referred By Contac t Referred To Contact Physical Therapy / PHYSICAL THERAPY Diagnoses Left hip pain [M25.552] Procedures NEW RS PT ORTH Shanita Pond PA-C [address] [place] [address] Mary Ann Oscar PT Reason Comments PT Discharge Specialty Diagnoses / Procedures Referred By Contac t Referred To Contact PHYSICAL THERAPY Diagnoses Chronic bilateral low back pain with sciatica, sciatica laterality unspecified Procedures CONSULT TO PHYSICAL THERAPY PHYSICAL THERAPY EVALUATION HIGH COMPLEX 45 MINS Shanita Green PA-C [address] [place] [address] Jeancarlos Fraser PT Referral ID Status Reason Start Date Expiration Date Visits Requested Visits Authorized [id number] Authorized Auto-Generat ed Referral 05/14/2023 09/01/2023 20 [...] REAL-TIME IMAGE COMPLETE Shanita Green PA-C [address] [place] [address] [facility] Referral ID Status Reason Start Date Expiration Date V isits Requested Visits Authorized [id number] Closed Auto-Generate d Referral 03/23/2022 04/22/2023 1 1 Reason Comments Results Reason Onset Date Comments Community Monitoring Outreach 04/03/2022 Te lephonic Follow Up Reason Onset Date Comments Community Monitoring Outreach 04/10/2022 Fo llow Up Reason Comments Medication Question Reason Onset Date Comments Community Monitoring Outreach 04/23/2022 CD M Telephonic Follow Up Reason Onset Date Comments Community Monitoring Outreach 04/24/2022 CD M Telephonic Follow Up Reason Comments Refill Request Reason Onset Date Comments Community Monitoring Outreach 05/08/2022 CD M Follow Up Reason Comments Recheck Reason Onset Date Comments Community Monitoring Outreach 06/12/2022 CD M Telephonic Reason Onset Date Comments 07/02/2022 M Telephonic Reason Comments Cough Chest congestion, SO [...] Reason Comments Physical Reason Onset Date Comments [facility] 11/12/2022 Telephonic outre ach Reason Comments Weight Loss Reason Onset Date Comments Refill Request 12/05/2022 Reason Onset Date Comments [facility] 12/07/2022 Telephonic outre ach Reason Comments Referral Information Reason Onset Date Comments M 01/03/2023 Telephonic outre ach Reason Comments Multiple Concerns Headache-persistent with high BP at home; Sleep-difficulty to fall asleep/stay asleep; runny nose Reason Comments Recheck Blood pressure Reason Comments Outside Endocrinology Reason Onset Date Comments [facility] Telephonic Outreach 02/28/2023 Reason Onset Date Comments [...] NEW HIGH MDM 60-74 MINUTES Alex Brown, ALAN.GRAVEL SCREENER [address] [place] [address] Referral ID Status Reason Start Date Expiration Date Visits Requested Visits Authorized [id number] Pending Review PCP Requested Referral 06/04/2023 06/03/2024 1 1 Reason Onset Date Comments [facility] Telephonic Outreach 06/21/2023 Reason Onset Date Comments Refill Request 06/27/2023 Specialty Diagnoses / Procedures Referred By Contac t Referred To Contact US IMAGING Diagnoses Weight loss Ex-smoker Procedures US ABDOMEN COMPLETE US ABDOMINAL REAL TIME W/IMAGE DOCUMENTATION Rito Camp MD [address] [place] [address] [place] [address] Referral ID Status Reason Start Date Expiration Date V isits Requested Visits Authorized [id number] Closed Auto-Generate d Referral 11/19/2022 12/19/2023 [address] Specialty Diagnoses / Procedures Referred By Contac t Referred To Contact CT IMAGING Diagnoses New onset of headaches after age 50 Procedures CTA HEAD W IVCON CT ANGIOGRAPHY HEAD W/CONTRAST/NONCONTRAST Alex Brown APRN.GRAVEL SCREENER [address] [place] [address] [place] [address] Referral ID Status Reason Start Date Expiration Date V isits Requested Visits Authorized [id number] Closed Auto-Generate d Referral 02/15/2023 03/16/2024 1 1 Specialty Diagnoses / Procedures Referred By Contac t Referred To Contact CT IMAGING Diagnoses Ex-smoker Weight loss, unintentional Procedures CT ABD/PEL W IVCON CT ABD & PELVIS W/CONTRAST Rito Camp MD [address] [place], [place] [id number] [place] [address] Referral ID Status Reason Start Date Expiration Date V isits Requested Visits Authorized [id number] Closed Auto-Generate d Referral 01/21/2023 01/03/2024 2 2 Specialty Diagnoses / Procedures Referred By Contac t Referred To Contact CT IMAGING Diagnoses Weight loss Ex-smoker Lung nodules Procedures CT CHEST WO IVCON DIAGNOSTIC COMPUTED TOMOGRAPHY THORAX W/O CNTRST Rito Camp MD [address] [place] [address] [place] [address] Referral ID Status Reason Start Date Expiration Date V isits Requested Visits Authorized [id number] Closed Auto-Generate d Referral 11/19/2022 12/19/2023 1 1 Reason Onset Date Comments [facility] Telephonic Outreach 07/22/2023 Reason Onset Date Comments [facility] 08/22/2023 Telephonic Outre ach Reason Onset Date Comments Refill Request 10/07/2023 Changing her Pha rmacy Reason Comments right shoulder pain X 2 weeks Reason Onset Date Comments [facility] 10/21/2023 Telephonic Outre ach Reason Onset Date Comments [facility] 10/22/2023 Telephonic Outre ach Reason Comments Patient Update FYI-No Action Needed Reason Onset Date Comments [facility] 11/18/2023 Telephonic Outre ach Reason Comments Results Disc/Report Reason Onset Date Comments [facility] 12/16/2023 Telephonic Outre ach Reason Onset Date Comments [facility] 12/17/2023 Telephonic Outre ach Reason Comments Chest Congestion SOB, cough, non prod uctive, sneezing, chest tightness x 3 days Reason Comments Cough Chest congestion x 4 days Reason Comments ext document CT report Reason Onset Date Comments [facility] 01/14/2024 Telephonic Outre ach Reason Onset Date Comments [facility] 01/15/2024 Telephonic Outre ach Reason Onset Date Comments [facility] 02/12/2024 Telephonic Outre ach Reason Onset Date Comments [facility] 03/11/2024 Telephonic Outre ach Reason Onset Date Comments Refill Request 03/16/2024 Reason Comments Fall Reason Comments Follow Up Left shoulder pain a fter fall on 03/17 Reason Onset Date Comments [facility] 04/06/2024 Telephonic Outre ach Reason Onset Date Comments [facility] 04/07/2024 Telephonic Outre ach Reason Comments Fall Fell 5 days ago- rig ht rib pain Specialty Diagnoses / Procedures Referred By Castillo t Referred To Contact MR IMAGING Diagnoses Fall, initial encounter Acute pain of left shoulder Procedures MRI SHOULDER WO/W IVCON LEFT MRI ANY JT UPPER EXTREMITY W/O & W/CONTR MATRL Alex Brown, APPLICATION PACKAGER.GRAVEL SCREENER [address] [place] [address] Mr Imaging [facility] Referral ID Status Reason Start Date Expiration Date V isits Requested Visits Authorized [id number] Closed Auto-Generate d Referral 03/26/2024 04/25/2025 1 1 Reason Onset Date Comments Refill Request 04/27/2024 Reason Onset Date Comments [facility] 05/06/2024 Telephonic Outre ach Reason Onset Date Comments [facility] 05/07/2024 Telephonic Outre ach Reason Comments Urinary Problem Urgency, pain x 3 da ys Reason Comments UTI Reason Comments Cough Chest congestion, he aviness in chest, headache, SOB, sore throat x 3 days Reason Comments Radiology XR Specialty Diagnoses / Procedures Referred By Castillo t Referred To Contact Radiology / [facility] Diagnoses Pneumonia due to COVID-19 virus Pneumonia due to COVID-19 virus [U07.1, J12.89] Procedures RADIOLOGIC EXAM CHEST 2 VIEWS XR CHEST Darvin Gold III, MD [address] [facility] [address] [place] [address] Referral ID Status Reason Start Date Expiration Date Visits Re quested Visits Authorized [id number] Closed 07/23/2020 09/01/2020 1 1 Reason Comments Medication Problem Reason Onset Date Comments [facility] 06/17/2024 Telephonic Outre ach Reason Onset Date Comments [facility] 06/18/2024 Telephonic Outre ach Reason Onset Date Comments [facility] 07/16/2024 Telephonic Outre ach Reason Comments Outside Pulmonary Reason Comments Cough X 3 days Reason Comments side pain Left side pain X2 we eks Reason Onset Date Comments [facility] 08/12/2024 Telephonic Outre ach Reason Onset Date Comments [facility] 08/13/2024 Telephonic Outre ach Reason Comments fax [...] Reason Onset Date Comments Refill Request 03/22/2025 Reason Comments Abstract GI Procedure and GI OV note - Dr. Gill Reason Comments Follow Up sciatic pain discuss ion wants MRI Reason Comments Abstract [facility] ev aluation Reason Onset Date Comments Refill Request 05/11/2025 Reason Comments Follow Up Reason Comments right wrist pain Fell 1/2 hour ago Care Teams (unrecognized sec tion and content) Electrostatic Powder Coating Technician Relationship Specialty Start Date End Date Rito Camp MD [address] [place] [address] PCP - General Family Practice 01/27/21 Kami Hunter head banquet waitressBridge Teacher 04/27/21 Suleman Gustafson [address] [place] [address] Conservation Science Teacher 04/27/21 Electrostatic Powder Coating Technician Relationship Specialty Start Date End Date Rito Camp MD [address] [place] [address] PCP - General Family Practice 01/27/21 Kami Hunter head banquet waitressBridge Teacher 04/27/21 Suleman Gustafson [address] [place] [address] Conservation Science Teacher 04/27/21 Electrostatic Powder Coating Technician Relationship Specialty Start Date End Date Rito Camp MD [address] [place] [address] PCP - General Family Practice 01/27/21 Kami Hunter head banquet waitressBridge Teacher 04/27/21 Suleman Gustafson [address] [place] [address] Conservation Science Teacher 04/27/21 Electrostatic Powder Coating Technician Relationship Specialty Start Date End Date Rito Camp MD [address] [place] [address] PCP - General Family Practice 01/27/21 Kami Hunter head banquet waitressBridge Teacher 04/27/21 Suleman Gustafson [address] [place] [address] Conservation Science Teacher 04/27/21 Electrostatic Powder Coating Technician Relationship Specialty Start Date End Date Rito Camp MD [address] [facility] [place] [address] PCP - General Family Practice 01/27/21 Kami Hunter, head banquet waitressBridge Teacher 04/27/21 Suleman Gustafson [address] [place] [facility] [place] [address] Conservation Science Teacher 04/27/21 Electrostatic Powder Coating Technician Relationship Specialty Start Date End Date Rito Camp MD [address] [facility] [place] [address] PCP - General Family Practice 01/27/21 Kami Hunter RN [address] [place], [place] [id number] Bridge Teacher 04/27/21 Suleman Gustafson [address] [facility] [place] [address] Conservation Science Teacher 04/27/21 Electrostatic Powder Coating Technician Relationship Specialty Start Date End Date Rito Camp MD [address] [facility] [place] [address] PCP - General Family Practice 01/27/21 Kami Hunter RN [address] [place] [address] Bridge Teacher 04/27/21 Suleman Gustafson [address] [place] [facility] [place] [address] Conservation Science Teacher 04/27/21 Electrostatic Powder Coating Technician Relationship Specialty Start Date End Date Rito Camp MD [address] [facility] [place] [address] PCP - General Family Practice 01/27/21 Kami Hunter, ELDER [address] [place] [address] Bridge Teacher 04/27/21 Suleman Gustafson [address] [facility] [place] [address] Conservation Science Teacher 04/27/21 Electrostatic Powder Coating Technician Relationship Specialty Start Date End Date Rito Camp MD [address] [place] [address] PCP - General Family Practice 01/27/21 Kami Hunter, ELDER [address] [place] [address] Bridge Teacher 04/27/21 Suleman Gustafson [address] [place] [address] Conservation Science Teacher 04/27/21 Electrostatic Powder Coating Technician Relationship Specialty Start Date End Date Rito Camp MD [address] [facility] [place] [address] PCP - General Family Practice 01/27/21 Kami Hunter RN [address] [place] [address] Bridge Teacher 04/27/21 Suleman Gustafson [address] [place] [address] Conservation Science Teacher 04/27/21 Electrostatic Powder Coating Technician Relationship Specialty Start Date End Date Rito Camp MD [address] [place] [address] PCP - General Family Practice 01/27/21 Kami Hunter, ELDER [address] [place] [address] Bridge Teacher 04/27/21 Suleman Gustafson [address] [place] [address] Conservation Science Teacher 04/27/21 Electrostatic Powder Coating Technician Relationship Specialty Start Date End Date Rito Camp MD [address] [facility] [place] [address] PCP - General Family Practice 01/27/21 Kami Hunter, RN [address] [place] [address] Bridge Teacher 04/27/21 Suleman Gustafson [address] [facility] [place] [address] Conservation Science Teacher 04/27/21 Electrostatic Powder Coating Technician Relationship Specialty Start Date End Date Rito Camp MD [address] [facility] [place] [address] PCP - General Family Practice 01/27/21 Kami Hunter, RN [address] [place] [address] Bridge Teacher 04/27/21 Suleman Gustafson [address] [place] [facility] [place] [address] Conservation Science Teacher 04/27/21 Electrostatic Powder Coating Technician Relationship Specialty Start Date End Date Rito Camp MD [address] [facility] [place] [address] PCP - General Family Practice 01/27/21 Kami Hunter, RN [address] [place] [address] Bridge Teacher 04/27/21 Suleman Gustafson [address] [place] [facility] [place] [address] Conservation Science Teacher 04/27/21 Electrostatic Powder Coating Technician Relationship Specialty Start Date End Date Rito Camp MD [address] [facility] [place] [address] PCP - General Family Practice 01/27/21 Kami Hunter, ELDER [address] [place] [address] Bridge Teacher 04/27/21 Suleman Gustafson [address] [facility] [place] [address] Conservation Science Teacher 04/27/21 Electrostatic Powder Coating Technician Relationship Specialty Start Date End Date Rito Camp MD [address] [facility] [place] [address] PCP - General Family Practice 01/27/21 Kami Hunter RN [address] [place] [address] Bridge Teacher 04/27/21 Suleman Gustafson [address] [facility] [place] [address] Conservation Science Teacher 04/27/21 Electrostatic Powder Coating Technician Relationship Specialty Start Date End Date Rito Camp MD [address] [facility] [place] [address] PCP - General Family Practice 01/27/21 Kami Hunter RN [address] [place] [address] Bridge Teacher 04/27/21 Suleman Gustafson [address] [facility] [place] [address] Conservation Science Teacher 04/27/21 Electrostatic Powder Coating Technician Relationship Specialty Start Date End Date Rito Camp MD [address] [facility] [place] [address] PCP - General Family Medicine 01/27/21 Kami Hunter RN [address] [place] [address] Bridge Teacher 04/27/21 Suleman Gustafson [address] [facility] [place] [address] Conservation Science Teacher 04/27/21 Electrostatic Powder Coating Technician Relationship Specialty Start Date End Date Rito Camp MD [address] [facility] [place] [address] PCP - General Family Medicine 01/27/21 Kami Hunter, ELDER [address] [place] [address] Bridge Teacher 04/27/21 Suleman Gustafson [address] [facility] [address] [place] [facility] [place] [address] Conservation Science Teacher 04/27/21 Electrostatic Powder Coating Technician Relationship Specialty Start Date End Date Rito Camp MD [address] [facility] [place] [address] PCP - General Family Medicine 01/27/21 Kami Hunter, ELDER [address] [place] [address] Bridge Teacher 04/27/21 Suleman Gustafson [address] [facility] [place] [address] Conservation Science Teacher 04/27/21 Electrostatic Powder Coating Technician Relationship Specialty Start Date End Date Rito Camp MD [address] [facility] [place] [address] PCP - General Family Medicine 01/27/21 Kami Hunter, RN [address] [place] [address] Bridge Teacher 04/27/21 Suleman Gustafson [address] [facility] [place] [address] Conservation Science Teacher 04/27/21 Electrostatic Powder Coating Technician Relationship Specialty Start Date End Date Rito Camp MD [address] [facility] [place] [address] PCP - General Family Medicine 01/27/21 Kami Hunter RN [address] [place] [address] Bridge Teacher 04/27/21 Suleman Gustafson [address] [place] [address] Conservation Science Teacher 04/27/21 Electrostatic Powder Coating Technician Relationship Specialty Start Date End Date Rito Camp MD [address] [place] [address] PCP - General Family Medicine 01/27/21 Kami Hunter RN [address] [place] [address] Bridge Teacher 04/27/21 Suleman Gustafson [address] [place] [address] Conservation Science Teacher 04/27/21 Electrostatic Powder Coating Technician Relationship Specialty Start Date End Date Rito Camp MD [address] [place] [address] PCP - General Family Medicine 01/27/21 Kami Hunter RN [address] [place] [address] Bridge Teacher 04/27/21 Suleman Gustafson [address] [place] [address] Conservation Science Teacher 04/27/21 Electrostatic Powder Coating Technician Relationship Specialty Start Date End Date Rito Camp MD [address] [place] [address] PCP - General Family Medicine 01/27/21 Kami Hunter, ELDER [address] [place] [address] Bridge Teacher 04/27/21 Suleman Gustafson [address] [place] [address] Conservation Science Teacher 04/27/21 Electrostatic Powder Coating Technician Relationship Specialty Start Date End Date Rito Camp MD [address] [facility] [place] [address] PCP - General Family Medicine 01/27/21 Kami Hunter RN [address] [place] [address] Bridge Teacher 04/27/21 Suleman Gustafson [address] [facility] [place] [address] Conservation Science Teacher 04/27/21 Electrostatic Powder Coating Technician Relationship Specialty Start Date End Date Rito Camp MD [address] [facility] [place] [address] PCP - General Family Medicine 01/27/21 Kami Hunter RN [address] [place] [address] Bridge Teacher 04/27/21 Suleman Gustafson [address] [place] [facility] [place] [address] Conservation Science Teacher 04/27/21 Electrostatic Powder Coating Technician Relationship Specialty Start Date End Date Rito Camp MD [address] [facility] [place] [address] PCP - General Family Medicine 01/27/21 Suleman Gustafson [address] [place] [address] Conservation Science Teacher 04/27/21 Ruth Denton, head banquet waitressBridge Teacher 09/26/22 Electrostatic Powder Coating Technician Relationship Specialty Start Date End Date Rito Camp MD [address] [facility] [place] [address] PCP - General Family Medicine 01/27/21 Suleman Gustafson [address] [place] [address] Conservation Science Teacher 04/27/21 Ruth Denton, head banquet waitressBridge Teacher 09/26/22 Electrostatic Powder Coating Technician Relationship Specialty Start Date End Date Rito Camp MD [address] [place] [address] PCP - General Family Medicine 01/27/21 Suleman Gustafson [address] [facility] [place] [address] Conservation Science Teacher 04/27/21 Ruth Denton, head banquet waitressBridge Teacher 09/26/22 Electrostatic Powder Coating Technician Relationship Specialty Start Date End Date Rito Camp MD [address] [place] [address] PCP - General Family Medicine 01/27/21 Suleman Gustafson [address] [place] [address] Conservation Science Teacher 04/27/21 Ruth Denton, head banquet waitressBridge Teacher 09/26/22 Electrostatic Powder Coating Technician Relationship Specialty Start Date End Date Rito Camp MD [address] [place] [address] PCP - General Family Medicine 01/27/21 Suleman Gustafson [address] [place] [address] Conservation Science Teacher 04/27/21 Ruth Denton, head banquet waitressBridge Teacher 09/26/22 Electrostatic Powder Coating Technician Relationship Specialty Start Date End Date Rito Camp MD [address] [facility] [place] [address] PCP - General Family Medicine 01/27/21 Suleman Gustafson [address] [place] [facility] [place] [address] Conservation Science Teacher 04/27/21 Ruth Denton, head banquet waitressBridge Teacher 09/26/22 Electrostatic Powder Coating Technician Relationship Specialty Start Date End Date Rito Camp MD [address] [facility] [place] [address] PCP - General Family Medicine 01/27/21 Suleman Gustafson [address] [facility] [place] [address] Conservation Science Teacher 04/27/21 Ruth Denton, head banquet waitressBridge Teacher 09/26/22 Electrostatic Powder Coating Technician Relationship Specialty Start Date End Date Rito Camp MD [address] [facility] [place] [address] PCP - General Family Medicine 01/27/21 Suleman Gustafson [address] [place] [address] Conservation Science Teacher 04/27/21 Ruth Dneton, head banquet waitressBridge Teacher 09/26/22 Electrostatic Powder Coating Technician Relationship Specialty Start Date End Date Rito Camp MD [address] [place] [address] PCP - General Family Medicine 01/27/21 Suleman Gustafson [address] [place] [address] Conservation Science Teacher 04/27/21 Kerrie Damian, ELDER [address] [facility] [place] [address] Bridge Teacher 02/04/23 Electrostatic Powder Coating Technician Relationship Specialty Start Date End Date Rito Camp MD [address] [facility] [place] [address] PCP - General Family Medicine 01/27/21 Suleman Gustafson [address] [place] [address] Conservation Science Teacher 04/27/21 Kerrie Damian RN [address] [facility] [place] [address] Bridge Teacher 02/04/23 Electrostatic Powder Coating Technician Relationship Specialty Start Date End Date Rito Camp MD [address] [facility] [place] [address] PCP - General Family Medicine 01/27/21 Suleman Gustafson [address] [place] [address] Conservation Science Teacher 04/27/21 Kerrie Damian RN [address] [facility] [place] [address] Bridge Teacher 02/04/23 Electrostatic Powder Coating Technician Relationship Specialty Start Date End Date Rito Camp MD [address] [facility] [place] [address] PCP - General Family Medicine 01/27/21 Suleman Gustafson [address] [place] [address] Conservation Science Teacher 04/27/21 Kerrie Damian, ELDER [address] [facility] [place] [address] Bridge Teacher 02/04/23 Electrostatic Powder Coating Technician Relationship Specialty Start Date End Date Rito Camp MD [address] [facility] [place] [address] PCP - General Family Medicine 01/27/21 Suleman Gustafson [address] [place] [address] Conservation Science Teacher 04/27/21 Kerrie Damian, ELDER [address] [place] [address] Bridge Teacher 02/04/23 Electrostatic Powder Coating Technician Relationship Specialty Start Date End Date Rito Camp MD [address] [facility] [place] [address] PCP - General Family Medicine 01/27/21 Suleman Gustafson [address] [place] [address] Conservation Science Teacher 04/27/21 Kerrie Damian RN [address] [place] [address] Bridge Teacher 02/04/23 Electrostatic Powder Coating Technician Relationship Specialty Start Date End Date Rito Camp MD [address] [facility] [place] [address] PCP - General Family Medicine 01/27/21 Suleman Gustafson [address] [place] [address] Conservation Science Teacher 04/27/21 Kerrie Damian, RN [address] [place] [address] Bridge Teacher 02/04/23 Electrostatic Powder Coating Technician Relationship Specialty Start Date End Date Rito Camp MD [address] [facility] [place] [address] PCP - General Family Medicine 01/27/21 Suleman Gustafson [address] [place] [address] Conservation Science Teacher 04/27/21 Kerrie Damian, ELDER [address] [place] [address] Bridge Teacher 02/04/23 Electrostatic Powder Coating Technician Relationship Specialty Start Date End Date Rito Camp MD [address] [place], [place] [address] PCP - General Family Medicine 01/27/21 Suleman Gustafson [address] [place] [address] Conservation Science Teacher 04/27/21 Kerrie Damian RN [address] [place] [address] Bridge Teacher 02/04/23 Team Status: Active Member Role Status Dates Dr. Darvin Gold III, MD Family Provider Active Dr. Rito Camp MD Primary Care Provider Active Team Status: Inactive Member Role Status Dates Dr. Rito Camp MD Primary Care Provider, Referri ng Provider Active Sierra Dee CLEAT FEEDER, CLEAT FEEDER-C Attending Provider Active Team Status: Inactive Member [...] Primary Care Provider Active Dr. Tyler Green , Emergency Provider Active Dr. Boby Jordan MD Admit Provider, Other Provide r Active Dr. Mick Pelletier MD Attending Provider, Other Provider Active Dr. Jazz Collins MD Other Provider Active Team Status: Inactive Member Role Status Dates Dr. Rito Camp MD Primary Care Provider Active Dr. Tyler Green , Emergency Provider Active Dr. Boby Jordan MD Admit Provider, Other Provide r Active Dr. Mick Pelletier MD Attending Provider Active Dr. Jazz Collins MD Other Provider Active Electrostatic Powder Coating Technician Relationship Specialty Start Date End Date Rito Camp MD [address] [place] [address] PCP - General Family Medicine 01/27/21 Suleman Gustafson [address] [facility] [place] [address] Conservation Science Teacher 04/27/21 Kerrie Damian RN [address] [place], [place] [id number] Bridge Teacher 02/04/23 Electrostatic Powder Coating Technician Relationship Specialty Start Date End Date Rito Camp MD [address] [place] [address] PCP - General Family Medicine 01/27/21 Suleman Gustafson [address] [place] [address] Conservation Science Teacher 04/27/21 Kerrie Damian, ELDER [address] [place], [place] [id number] Bridge Teacher 02/04/23 Electrostatic Powder Coating Technician Relationship Specialty Start Date End Date Rito Camp MD [address] [facility] [place] [address] PCP - General Family Medicine 01/27/21 Suleman Gustafson [address] [place] [address] Conservation Science Teacher 04/27/21 Kerrie Damian, RN [address] [place] [address] Bridge Teacher 02/04/23 Electrostatic Powder Coating Technician Relationship Specialty Start Date End Date Rito Camp MD [address] [facility] [place] [address] PCP - General Family Medicine 01/27/21 Suleman Gustafson [address] [facility] [address] [place] [facility] [place] [address] Conservation Science Teacher 04/27/21 Kerrie Damian, ELDER [address] [place] [address] Bridge Teacher 02/04/23 Electrostatic Powder Coating Technician Relationship Specialty Start Date End Date Rito Camp MD [address] [facility] [place] [address] PCP - General Family Medicine 01/27/21 Suleman Gustafson [address] [place] [place] [address] Conservation Science Teacher 04/27/21 Kerrie Damian, ELDER [address] [place] [address] Bridge Teacher 02/04/23 Electrostatic Powder Coating Technician Relationship Specialty Start Date End Date Rito Camp MD [address] [facility] [place] [address] PCP - General Family Medicine 01/27/21 Suleman Gustafson [address] [place] [address] Conservation Science Teacher 04/27/21 Kerrie Damian RN [address] [place], [place] [id number] Bridge Teacher 02/04/23 Electrostatic Powder Coating Technician Relationship Specialty Start Date End Date Rito Camp MD [address] [place] [address] PCP - General Family Medicine 01/27/21 Suleman Gustafson [address] [place] [address] Conservation Science Teacher 04/27/21 Kerrie Damian RN [address] [place] [address] Bridge Teacher 02/04/23 Electrostatic Powder Coating Technician Relationship Specialty Start Date End Date Rito Camp MD [address] [place] [address] PCP - General Family Medicine 01/27/21 Suleman Gustafson [address] [place] [address] Conservation Science Teacher 04/27/21 Ruth Denton, head banquet waitressBridge Teacher 09/26/22 02/03/23 Electrostatic Powder Coating Technician Relationship Specialty Start Date End Date Rito Camp MD [address] [place] [address] PCP - General Family Medicine 01/27/21 Kami Hunter RN [address] [place] [id number] Bridge Teacher 04/27/2109/03 Suleman Gustafson [address] [place] [address] Conservation Science Teacher 04/27/21 Electrostatic Powder Coating Technician Relationship Specialty Start Date End Date Rito Camp MD [address] [place] [address] PCP - General Family Medicine 01/27/21 Suleman Gustafson [address] [facility] [place] [address] Conservation Science Teacher 04/27/21 Ruth Denton RN Bridge Teacher 09/26/22 02/03/23 Electrostatic Powder Coating Technician Relationship Specialty Start Date End Date Rito Camp MD [address] [place] [address] PCP - General Family Medicine 01/27/21 Suleman Gustafson [address] [place] [address] Conservation Science Teacher 04/27/21 Kerrie Damian, ELDER [address] [place] [id number] Bridge Teacher 02/04/23 Electrostatic Powder Coating Technician Relationship Specialty Start Date End Date Rito Camp MD [address] [place] [address] PCP - General Family Medicine 01/27/21 Suleman Gustafson [address] [place] [address] Conservation Science Teacher 04/27/21 Ruth Denton, head banquet waitressBridge Teacher 09/26/22 02/03/23 Electrostatic Powder Coating Technician Relationship Specialty Start Date End Date Rito Camp MD [address] [facility] [place] [address] PCP - General Family Medicine 01/27/21 Suleman Gustafson [address] [place] [address] Conservation Science Teacher 04/27/21 Ruth Denton, head banquet waitressBridge Teacher 09/26/22 02/03/23 Electrostatic Powder Coating Technician Relationship Specialty Start Date End Date Rito Camp MD [address] [facility] [place] [address] PCP - General Family Medicine 01/27/21 Suleman Gustafson [address] [place] [address] Conservation Science Teacher 04/27/21 Kerrie Damian RN [address] [place] [address] Bridge Teacher 02/04/23 Electrostatic Powder Coating Technician Relationship Specialty Start Date End Date Rito Camp MD [address] [facility] [place] [address] PCP - General Family Medicine 01/27/21 Suleman Gustafson [address] [place] [address] Conservation Science Teacher 04/27/21 Kerrie Damian RN [address] [place], [place] [id number] Bridge Teacher 02/04/23 Electrostatic Powder Coating Technician Relationship Specialty Start Date End Date Rito Camp MD [address] [facility] [place] [address] PCP - General Family Medicine 01/27/21 Suleman Gustafson [address] [facility] [place] [address] Conservation Science Teacher 04/27/21 Kerrie Damian, ELDER [address] [place] [address] [id number] Bridge Teacher 02/04/23 Electrostatic Powder Coating Technician Relationship Specialty Start Date End Date Rito Camp MD [address] [place] [address] PCP - General Family Medicine 01/27/21 Suleman Gustafson [address] [facility] [place] [address] Conservation Science Teacher 04/27/21 Christine Parker, head banquet waitressBridge Teacher 08/15/23 Electrostatic Powder Coating Technician Relationship Specialty Start Date End Date Rito Camp MD [address] [place] [address] PCP - General Family Medicine 01/27/21 Suleman Gustafson [address] [place] [address] Conservation Science Teacher 04/27/21 Christine Parker, head banquet waitressBridge Teacher 08/15/23 Electrostatic Powder Coating Technician Relationship Specialty Start Date End Date Rito Camp MD [address] [place] [address] PCP - General Family Medicine 01/27/21 Suleman Gustafson [address] [place] [address] Conservation Science Teacher 04/27/21 Christine Parker, head banquet waitressBridge Teacher 08/15/23 Electrostatic Powder Coating Technician Relationship Specialty Start Date End Date Rito Camp MD [address] [facility] [place] [address] PCP - General Family Medicine 01/27/21 Suleman Gustafson [address] [place] [address] Conservation Science Teacher 04/27/21 Christine Parker, head banquet waitressBridge Teacher 08/15/23 Electrostatic Powder Coating Technician Relationship Specialty Start Date End Date Rito Camp MD [address] [place] [address] PCP - General Family Medicine 01/27/21 Suleman Gustafson [address] [place] [address] Conservation Science Teacher 04/27/21 Christine Parker, head banquet waitressBridge Teacher 08/15/23 Electrostatic Powder Coating Technician Relationship Specialty Start Date End Date Rito Camp MD [address] [place] [address] PCP - General Family Medicine 01/27/21 Suleman Gustafson [address] [place] [address] Conservation Science Teacher 04/27/21 Christine Parker, head banquet waitressBridge Teacher 08/15/23 Electrostatic Powder Coating Technician Relationship Specialty Start Date End Date Rito Camp MD [address] [place] [address] PCP - General Family Medicine 01/27/21 Suleman Gustafson [address] [place] [address] Conservation Science Teacher 04/27/21 Christine Parker, head banquet waitressBridge Teacher 08/15/23 Electrostatic Powder Coating Technician Relationship Specialty Start Date End Date Rito Camp MD [address] [facility] [place] [address] PCP - General Family Medicine 01/27/21 Suleman Gustafson [address] [place] [address] Conservation Science Teacher 04/27/21 Christine Parker RN Bridge Teacher 08/15/23 Electrostatic Powder Coating Technician Relationship Specialty Start Date End Date Rito Camp MD [address] [facility] [place] [address] PCP - General Family Medicine 01/27/21 Suleman Gustafson [address] [place] [address] Conservation Science Teacher 04/27/21 Christine Parker, head banquet waitressBridge Teacher 08/15/23 Team Status: Inactive Member Role Status Dates Dr. Rito Camp MD Primary Care Provider Active Sierra Dee CLEAT FEEDER, CLEAT FEEDER-C Attending Provider, Ruth reza Provider Active Electrostatic Powder Coating Technician Relationship Specialty Start Date End Date Rito Camp MD [address] [facility] [place] [address] PCP - General Family Medicine 01/27/21 Suleman Gustafson [address] [place] [address] Conservation Science Teacher 04/27/21 Christine Parker, head banquet waitressBridge Teacher 08/15/23 Electrostatic Powder Coating Technician Relationship Specialty Start Date End Date Rito Camp MD [address] [facility] [place] [address] PCP - General Family Medicine 01/27/21 Suleman Gustafson [address] [place] [address] Conservation Science Teacher 04/27/21 Christine Parker, head banquet waitressBridge Teacher 08/15/23 Electrostatic Powder Coating Technician Relationship Specialty Start Date End Date Rito Camp MD [address] [facility] [place] [address] PCP - General Family Medicine 01/27/21 Suelman Gustafson [address] [place] [address] Conservation Science Teacher 04/27/21 Christine Parker, head banquet waitressBridge Teacher 08/15/23 Electrostatic Powder Coating Technician Relationship Specialty Start Date End Date Rito Camp MD [address] [facility] [place] [address] PCP - General Family Medicine 01/27/21 Suleman Gustafson [address] [place] [address] Conservation Science Teacher 04/27/21 Christine Parker, head banquet waitressBridge Teacher 08/15/23 Electrostatic Powder Coating Technician Relationship Specialty Start Date End Date Rito Camp MD [address] [facility] [place] [address] PCP - General Family Medicine 01/27/21 Suleman Gustafson [address] [place] [address] Conservation Science Teacher 04/27/21 Christine Parker, head banquet waitressBridge Teacher 08/15/23 Electrostatic Powder Coating Technician Relationship Specialty Start Date End Date Rito Camp MD [address] [facility] [place] [address] PCP - General Family Medicine 01/27/21 Suleman Gustafson [address] [place] [address] Conservation Science Teacher 04/27/21 Christine Parker, head banquet waitressBridge Teacher 08/15/23 Electrostatic Powder Coating Technician Relationship Specialty Start Date End Date Rito Camp MD [address] [facility] [place] [address] PCP - General Family Medicine 01/27/21 Suleman Gustafson [address] [place] [address] Conservation Science Teacher 04/27/21 Christine Parker, head banquet waitressBridge Teacher 08/15/23 Electrostatic Powder Coating Technician Relationship Specialty Start Date End Date Rito Camp MD [address] [facility] [place] [address] PCP - General Family Medicine 01/27/21 Suleman Gustafson [address] [place] [address] Conservation Science Teacher 04/27/21 Ruth Denton, head banquet waitressBridge Teacher 09/26/22 02/03/23 Electrostatic Powder Coating Technician Relationship Specialty Start Date End Date Rito Camp MD [address] [facility] [place] [address] PCP - General Family Medicine 01/27/21 Kami Hunter RN [address] [place], [place] 8253631 Bridge Teacher 04/27/2109/03 Suleman Gustafson [address] [place] [address] Conservation Science Teacher 04/27/21 Electrostatic Powder Coating Technician Relationship Specialty Start Date End Date Rito Camp MD [address] [place] [address] PCP - General Family Medicine 01/27/21 Kami Hunter RN [address] [place], [place] [address]97[address] Bridge Teacher 04/27/2109/03 Suleman Gustafson [address] [place] [address] Conservation Science Teacher 04/27/21 Electrostatic Powder Coating Technician Relationship Specialty Start Date End Date Rito Camp MD [address] [facility] [place] [address] PCP - General Family Medicine 01/27/21 Suleman Gustafson [address] [place] [place] [address] Conservation Science Teacher 04/27/21 Christine Parker RN Bridge Teacher 08/15/23 Electrostatic Powder Coating Technician Relationship Specialty Start Date End Date Darvin Gold III, MD [place] [address] PCP - General 11/30/02 01/26/21 Electrostatic Powder Coating Technician Relationship Specialty Start Date End Date Darvin Gold III, MD [place] PCP - General 11/30/02 01/26/21 Electrostatic Powder Coating Technician Relationship Specialty Start Date End Date Darvin Gold III, MD [place] PCP - General 11/30/02 01/26/21 Electrostatic Powder Coating Technician Relationship Specialty Start Date End Date Rito Camp MD [address] [facility] [place] [address] PCP - General Family Medicine 01/27/21 Suleman Gustafson [address] [place] [address] Conservation Science Teacher 04/27/21 Christine Parker, head banquet waitressBridge Teacher 08/15/23 Electrostatic Powder Coating Technician Relationship Specialty Start Date End Date Rito Camp MD [address] [facility] [place] [address] PCP - General Family Medicine 01/27/21 Suleman Gustafson [address] [place] [address] Conservation Science Teacher 04/27/21 Christine Parker, head banquet waitressBridge Teacher 08/15/23 Electrostatic Powder Coating Technician Relationship Specialty Start Date End Date Rito Camp MD [address] [facility] [place] [address] PCP - General Family Medicine 01/27/21 Suleman Gustafson [address] [place] [address] Conservation Science Teacher 04/27/21 Christine Parker, head banquet waitressBridge Teacher 08/15/23 Electrostatic Powder Coating Technician Relationship Specialty Start Date End Date Rito Camp MD [address] [place] [address] PCP - General Family Medicine 01/27/21 Suleman Gustafson [address] [place] [address] Conservation Science Teacher 04/27/21 Christine Parker, head banquet waitressBridge Teacher 08/15/23 Electrostatic Powder Coating Technician Relationship Specialty Start Date End Date Rito Camp MD [address] [place] [address] PCP - General Family Medicine 01/27/21 Suleman Gustafson [address] [place] [address] Conservation Science Teacher 04/27/21 Christine Parker, head banquet waitressBridge Teacher 08/15/23 Electrostatic Powder Coating Technician Relationship Specialty Start Date End Date Rito Camp MD [address] [place] [address] PCP - General Family Medicine 01/27/21 Suleman Gustafson [address] [place] [address] Conservation Science Teacher 04/27/21 Christine Parker, head banquet waitressBridge Teacher 08/15/23 Alex Brown APRN.GRAVEL SCREENER [address] [place], [place] [address] Woven Wood Shade Assembler Family Medicine 08/08/24 Shanita Green PA-C [address] [place] [address] Woven Wood Shade Assembler Family Medicine 08/08/24 Electrostatic Powder Coating Technician Relationship Specialty Start Date End Date Rito Camp MD [address] [place] [address] PCP - General Family Medicine 01/27/21 Suleman Gustafson [address] [place] [address] Conservation Science Teacher 04/27/21 Alex Brown APRN.GRAVEL SCREENER [address] [place] [address] Woven Wood Shade Assembler Family Medicine 08/08/24 Shanita Green PA-C [address] [place] [address] Woven Wood [facility]ade [facility] 08/08/24 Electrostatic Powder Coating Technician Relationship Specialty Start Date End Date Rito Camp MD [address] [place] [address] PCP - General Family Medicine 01/27/21 Suleman Gustafson [address] [place] [address] Conservation Science Teacher 04/27/21 Alex Brown APRN.GRAVEL SCREENER [address] [place] [address] Woven Wood Shade Assembler Family Medicine 08/08/24 Shanita Green PA-C [address] [place] [address] Woven Wood Shade Assembler Family Medicine 08/08/24 Electrostatic Powder Coating Technician Relationship Specialty Start Date End Date Rito Camp MD [address] [facility] [place] [address] PCP - General Family Medicine 01/27/21 Suleman Gustafson [address] [place] [address] Conservation Science Teacher 04/27/21 Alex Brown, ALAN.GRAVEL SCREENER [address] [place] [address] Woven Wood Shade Assembler Family Medicine 08/08/24 Shanita Green PA-C [address] [facility] [place] [address] Woven Wood Shade Assembler Family Medicine 08/08/24 Electrostatic Powder Coating Technician Relationship Specialty Start Date End Date Rito Camp MD [address] [facility] [place] [address] PCP - General Family Medicine 01/27/21 Suleman Gustafson [address] [facility] [place] [address] Conservation Science Teacher 04/27/21 Alex Brown, ALAN.GRAVEL SCREENER [address] [place] [address] Woven Wood Shade Assembler Family Medicine 08/08/24 Shanita Green PA-C [address] [facility] [place] [address] Woven Wood Shade Assembler Family Medicine 08/08/24 Electrostatic Powder Coating Technician Relationship Specialty Start Date End Date Rito Camp MD [address] [place] [address] PCP - General Family Medicine 01/27/21 Suleman Gustafson [address] [place] [address] Conservation Science Teacher 04/27/21 Alex Brown APRN.GRAVEL SCREENER [address] [place] [address] Woven Wood Shade Assembler Family Medicine 08/08/24 Shanita Green PA-C [address] [place] [address] Woven Wood Shade Assembler Family Medicine 08/08/24 Electrostatic Powder Coating Technician Relationship Specialty Start Date End Date Rito Camp MD [address] [place] [address] PCP - General Family Medicine 01/27/21 Suleman Gustafson [address] [place] [address] Conservation Science Teacher 04/27/21 Alex Brown APRN.GRAVEL SCREENER [address] [place] [address] Woven Wood Shade Assembler Family Medicine 08/08/24 Shanita Green PA-C [address] [place] [address] Woven Wood Shade Assembler Family Medicine 08/08/24 Electrostatic Powder Coating Technician Relationship Specialty Start Date End Date Rito Camp MD [address] [place] [address] PCP - General Family Medicine 01/27/21 Suleman Gustafson [address] [place] [address] Conservation Science Teacher 04/27/21 Alex Brown APRN.GRAVEL SCREENER [address] [facility] [place] [address] Woven Wood Shade Assembler Family Medicine 08/08/24 Shanita Green PA-C [address] [facility] [place] [address] [facility] Electrostatic Powder Coating Technician Relationship Specialty Start Date End Date Rito Camp MD [address] [facility] [place] [address] PCP - General Family Medicine 01/27/21 Suleman Gustafson [address] [place] [address] Conservation Science Teacher 04/27/21 Alex Brown APRN.GRAVEL SCREENER 1740 [facility] [place] [address] Woven Wood Shade Assembler Family Medicine 08/08/24 Shanita Green PA-C [address] [facility] [place] [address] [facility] 08/08/24 Electrostatic Powder Coating Technician Relationship Specialty Start Date End Date Rito Camp MD [address] [facility] [place] [address] PCP - General Family Medicine 01/27/21 Suleman Gustafson [address] [place] [address] Conservation Science Teacher 04/27/21 Alex Brown APRN.GRAVEL SCREENER [address] [place] [address] Woven Wood Shade Assembler Family [facility] 08/08/24 Shanita Green PA-C [address] [place] [address] [facility] 08/08/24 Electrostatic Powder Coating Technician Relationship Specialty Start Date End Date Rito Camp MD [address] [place] [address] PCP - General Family Medicine 01/27/21 Suleman Gustafson [address] [place] [address] Conservation Science Teacher 04/27/21 Alex Brown APRN.GRAVEL SCREENER [address] [place] [address] [facility] 08/08/24 Shanita Green PA-C [address] [place] [address] [facility]24 Electrostatic Powder Coating Technician Relationship Specialty Start Date End Date Rito Camp MD [address] [place] [address] PCP - General Family Medicine 01/27/21 Suleman Gustafson [address] [place] [phone] Conservation Science Teacher 04/27/21 Alex Brown APRN.CNP [address] [place] [id number] [facility] 08/08/24 Shanita Green PA-C [address] [place] [address] [phone] [facility] 08/08/24 Team Status: Active Member Role Status Dates Dr. Rito Camp MD Primary Care Provider Active Team Status: Inactive Member Role Status Dates Dr. Rito Camp MD Primary Care Provider Active Start: September 15, 2024 End: September 15, 2024 Dr. Rito Camp MD Referring Provider Active Start: September 15, 2024 End: September 15, 2024 TRACI Pan Attending Provider Active Start: September 15, 2024 [...] Referring Provider Active Start: November 25, 2024 Electrostatic Powder Coating Technician Relationship Specialty Start Date End Date Rito Camp MD [address] [place] [id number] PCP - General Family Medicine 01/27/21 12/06/24 Rito Camp MD [address] [place] [address] [phone] PCP - General Family Medicine 12/07/24 Suleman Gustafson [address] [place] [phone] Conservation Science Teacher 04/27/21 Alex Brown APRN.GRAVEL SCREENER [address] [place] [address] Woven Wood Shade Assembler Family Medicine 08/08/24 Shanita Green PA-C [address] [place] [address] [facility]/08/24 Electrostatic Powder Coating Technician Relationship Specialty Start Date End Date Rito Camp MD [address] [place], [place] [id number] PCP - General Family Medicine 12/07/24 Suleman Gustafson [address] [place] [phone] Conservation Science Teacher 04/27/21 Alex Brown, ALAN.GRAVEL SCREENER [address] [place] [address] Woven Wood Shade Assembler Family Medicine 08/08/24 Shanita Green PA-C [address] [place] [address] [facility] 08/08/24 Electrostatic Powder Coating Technician Relationship Specialty Start Date End Date Rito Camp MD [address] [place] [address] PCP - General Family Medicine 12/07/24 Slueman Gustafson [address] [place] [address] Conservation Science Teacher 04/27/21 Alex Brown APRN.GRAVEL SCREENER [address] [place] [address] Woven Wood Shade Assembler Family [facility] 08/08/24 Shanita Green PA-C [address] [place] [address] [facility] 08/08/24 Electrostatic Powder Coating Technician Relationship Specialty Start Date End Date Rito Camp MD [address] [place] [address] PCP - General Family Medicine 12/07/24 Suleman Gustafson [address] [place] [phone] Conservation Science Teacher 04/27/21 Alex Brown, APPLICATION PACKAGER.GRAVEL SCREENER [address] [place] [address] [facility] 08/08/24 Shanita Green PA-C [address] [place] [address] [facility] 08/08/24 Electrostatic Powder Coating Technician Relationship Specialty Start Date End Date Rito Camp MD [address] [place] [address] PCP - General Family Medicine 12/07/24 Suleman Gustafson [address] [place] [phone] Conservation Science Teacher 04/27/21 Alex Brown APRN.CNP [address] [place] [address] [facility] 08/08/24 Shanita Green PA-C [address] [place] [address] [facility] 08/08/24 Team Status: Inactive Member Role Status Dates Dr. Rito Camp MD Primary Care Provider Active Start: December 17, 2024 End: December 17, 2024 Dr. Rito Camp MD Referring Provider Active Start: December 17, 2024 End: December 17, 2024 JAIRO OrnelasC Attending Provider Active Start: December 17, 2024 End: December 17, 2024 Team Status: Inactive Member Role Status Dates Dr. Rito Camp MD Primary Care Provider Active Start: January 01, 2025 End: January 01, 2025 Sierra Dee NP, CLEAT FEEDER-C Attending Provider Active Start: January 01, 2025 End: January 01, 2025 Sierra Dee NP, CLEAT FEEDER-C Referring Provider Active Start: January 01, 2025 [...] February 09, 2025 End: February 09, 2025 Electrostatic Powder Coating Technician Relationship Specialty Start Date End Date Rito Camp MD [address] [place] [address] PCP - General Family Medicine 12/07/24 Suleman Gustafson [address] [place] [address] Conservation Science Teacher 04/27/21 Alex Brown APRN.GRAVEL SCREENER [address] [place] [address] Woven Wood Shade Assembler Family Medicine 02/01/25 Shanita Green PA-C [address] [place] [address] [facility] Family Medicine 02/01/25 Electrostatic Powder Coating Technician Relationship Specialty Start Date End Date Rito Camp MD [address] [place] [address] PCP - General Family Medicine 12/07/24 Suleman Gustafson [address] [place] [phone] Conservation Science Teacher 04/27/21 Alex Brown APRN.GRAVEL SCREENER [address] [place] [address] Woven Wood Shade Assembler Family Medicine 02/01/25 Shanita Green PA-C [address] [place] [address] Woven Wood Shade Assembler Family Medicine 02/01/25 Electrostatic Powder Coating Technician Relationship Specialty Start Date End Date Rito Camp MD [address] [place], [place] [address]791 PCP - General Family Medicine 12/07/24 Suleman Gustafson [address] [place] [phone] Conservation Science Teacher 04/27/21 Alex Brown APRN.GRAVEL SCREENER [address] [place], [place] 332141 [facility] 02/01/25 Shanita Green PA-C [address] [place] [address] 2925[address] [facility] 02/01/25 Electrostatic Powder Coating Technician Relationship Specialty Start Date End Date Rito Camp MD [address] [place] [address] [id number] PCP - General Family Medicine 12/07/24 Suleman Gustafson [address] [place] [address] Conservation Science Teacher 04/27/21 Alex Brown APRN.GRAVEL SCREENER [address] [place] [address] [facility] 02/01/25 Shanita Green PA-C [address] [place] [address] [facility] 02/01/25 Team Status: Active Member Role/Relationship Status Dates Dr. Rito Camp MD Primary Care Provider Active Team Status: Inactive Member Role/Relationship Status Dates Dr. Rito Camp MD Primary Care Provider Active Start: December 17, 2024 End: December 17, 2024 Dr. Rito Camp MD Referring Provider Active Start: December 17, 2024 End: December 17, 2024 JAIRO OrnelasC Attending Provider Active Start: December 17, 2024 End: December 17, 2024 Team Status: Inactive Member Role/Relationship Status Dates Dr. Rito Camp MD Primary Care Provider Active Start: January 01, 2025 End: January 01, 2025 Sierra Dee CLEAT FEEDER, CLEAT FEEDER-C Attending Provider Active Start: January 01, 2025 End: January 01, 2025 Sierra Dee CLEAT FEEDER, CLEAT FEEDER-C Referring Provider Active Start: January 01, 2025 End: January 01, 2025 Team Status: Inactive Member Role/Relationship Status Dates Dr. Rito Camp MD Primary Care Provider Active Start: February 09, 2025 End: February 09, 2025 Dr. Rito Camp MD Referring Provider Active Start: February 09, 2025 End: February 09, 2025 Letha Emery NP-C Attending Provider Active Start: February 09, 2025 End: February 09, 2025 Team Status: Inactive Member Role/Relationship Status Dates Dr. Rito Camp MD Primary Care Provider Active Start: March 02, 2025 Dr. Minerva Shore MD Attending Provider Active Start: March 02, 2025 Team Status: Inactive Member Role/Relationship Status Dates Dr. Rito Camp MD Primary Care Provider Active Start: March 31, 2025 End: March 31, 2025 Dr. Rito Camp MD Referring Provider Active Start: March 31, 2025 End: March 31, 2025 Dr. Robe Gill DO Attending Provider Active Start: March 31, 2025 End: March 31, 2025 Team Status: Active Member Role/Relationship Status Dates Dr. Rito Camp MD Primary Care Provider Active Start: March 31, 2025 Dr. Rito Camp MD Referring Provider Active Start: March 31, 2025 Dr. Robe Gill DO Attending Provider Active Start: March 31, 2025 Dr. Robe Gill DO Other Provider Active St art: March 31, 2025 Electrostatic Powder Coating Technician Relationship Specialty Start Date End Date Rito Camp MD [address] [place] [address] PCP - General Family Medicine 12/07/24 Suleman Gustafson [address] [place] [phone] Conservation Science Teacher 04/27/21 Alex Brown APRN.CNP [address] [place], [place] 948541 Woven Wood Shade Assembler Family Medicine 02/01/25 Shanita Green PA-C [address] [place], [place] [phone] [facility] Team Status: Inactive Member Role/Relationship Status Dates Dr. Rito Camp MD Primary Care Provider Active Start: January 01, 2025 End: January 01, 2025 Sierra Dee CLEAT FEEDER, CLEAT FEEDER-C Attending Provider Active Start: January 01, 2025 End: January 01, 2025 Sierra Dee CLEAT FEEDER, CLEAT FEEDER-C Referring Provider Active Start: January 01, 2025 End: January 01, 2025 Team Status: Inactive Member Role/Relationship Status Dates Dr. Rito Camp MD Primary Care Provider Active Start: February 09, 2025 End: February 09, 2025 Dr. Rito Camp MD Referring Provider Active Start: February 09, 2025 End: February 09, 2025 Letha Emery NP-C Attending Provider Active Start: February 09, 2025 End: February 09, 2025 Team Status: Inactive Member Role/Relationship Status Dates Dr. Rito Camp MD Primary Care Provider Active Start: March 02, 2025 Dr. Minerva Shore MD Attending Provider Active Start: March 02, 2025 Team Status: Inactive Member Role/Relationship Status Dates Dr. Rito Camp MD Primary Care Provider Active Start: March 31, 2025 End: March 31, 2025 Dr. Rito Camp MD Referring Provider Active Start: March 31, 2025 End: March 31, 2025 Dr. Robe Gill DO Attending Provider Active Start: March 31, 2025 End: March 31, 2025 Team Status: Active Member Role/Relationship Status Dates Dr. Rito Camp MD Primary Care Provider Active Start: March 31, 2025 Dr. Rito Camp MD Referring Provider Active Start: March 31, 2025 Dr. Robe Gill , Attending Provider Active Start: March 31, 2025 Dr. Robe Gill , DO Other Provider Active St art: March 31, 2025 Team Status: Inactive Member Role/Relationship Status Dates Dr. Rito Camp MD Primary Care Provider Active Start: April 20, 2025 End: April 20, 2025 Dr. Rito Camp MD Referring Provider Active Start: April 20, 2025 End: April 20, 2025 Angella Cueto NP-C Attending Provider Active Start: April 20, 2025 End: April 20, 2025 Electrostatic Powder Coating Technician Relationship Specialty Start Date End Date Rito Camp MD [address] [place], [place] [id number] PCP - General Family Medicine 12/07/24 Suleman Gustafson [address] [facility] [place] [phone] Conservation Science Teacher 04/27/21 Alex Brown APRN.GRAVEL SCREENER [address] [place], [place] 6[address]641 Woven Wood Shade Assembler Family Medicine 02/01/25 Shanita Green PA-C [address] [place], [place] 215621 Woven Wood Shade Assembler Family Medicine 02/01/25 Electrostatic Powder Coating Technician Relationship Specialty Start Date End Date Rito Camp MD [address] [place], [place] [phone] PCP - General Family Medicine 12/07/24 Suleman Gustafson [address] [place] [phone] Conservation Science Teacher 04/27/21 Alex Brown APRN.GRAVEL SCREENER [address] [place] [address] [facility] 02/01/25 Shanita Green PA-C [address] [place] [address] [facility] 02/01/25 Team Status: Inactive Member Role/Relationship Status Dates Dr. Rito Camp MD Primary Care Provider Active Start: February 09, 2025 End: February 09, 2025 Dr. Rito Camp MD Referring Provider Active Start: February 09, 2025 End: February 09, 2025 Letha Emery NP-C Attending Provider Active Start: February 09, 2025 End: February 09, 2025 Team Status: Inactive Member Role/Relationship Status Dates Dr. Rito Camp MD Primary Care Provider Active Start: March 02, 2025 Dr. Minerva Shore MD Attending Provider Active Start: March 02, 2025 Team Status: Inactive Member Role/Relationship Status Dates Dr. Rito Camp MD Primary Care Provider Active Start: March 31, 2025 End: March 31, 2025 Dr. Rito Camp MD Referring Provider Active Start: March 31, 2025 End: March 31, 2025 Dr. Robe Gill DO Attending Provider Active Start: March 31, 2025 End: March 31, 2025 Team Status: Active Member Role/Relationship Status Dates Dr. Rito Camp MD Primary Care Provider Active Start: March 31, 2025 Dr. Rito Camp MD Referring Provider Active Start: March 31, 2025 Dr. Robe Gill DO Attending Provider Active Start: March 31, 2025 Dr. Robe Gill DO Other Provider Active St art: March 31, 2025 Team Status: Inactive Member Role/Relationship Status Dates Dr. Rito Camp MD Primary Care Provider Active Start: April 20, 2025 End: April 20, 2025 Dr. Rito Camp MD Referring Provider Active Start: April 20, 2025 End: April 20, 2025 TRACI Ornelas Attending Provider Active Start: April 20, 2025 End: April 20, 2025 Team Status: Active Member Role/Relationship Status Dates Dr. Rito Camp MD Primary Care Provider Active Start: May 06, 2025 TRACI Ornelas Attending Provider Active Start: May 06, 2025 TRACI Ornelas Referring Provider Active Start: May 06, 2025 Team Status: Inactive Member Role/Relationship Status Dates Dr. Rito Camp MD Primary Care Provider Active Start: May 10, 2025 End: May 10, 2025 TRACI Ornelas Attending Provider Active Start: May 10, 2025 End: May 10, 2025 TRACI Ornelas Referring Provider Active Start: May 10, 2025 End: May 10, 2025 Electrostatic Powder Coating Technician Relationship Specialty Start Date End Date Rito Camp MD [address] [place], [place] [id number] PCP - General Family Medicine 12/07/24 Suleman Gustafson [address] [place] [phone] Conservation Science Teacher 04/27/21 Alex Brown APRN.CNP [address] [place] [address] [phone] [facility] Family Medicine 02/01/25 Shanita Green PA-C [address] [place] [address] [phone] [facility] Family Medicine 02/01/25 Electrostatic Powder Coating Technician Relationship Specialty Start Date End Date Rito Camp MD [address] [place], [place] [phone] PCP - General Family Medicine 12/07/24 Suleman Gustafson [address] [place] [phone] Conservation Science Teacher 04/27/21 Alex Brown APRN.GRAVEL SCREENER [address] [place], [place] 992941 [facility] 02/01/25 Shanita Green PA-C [address] [place] [address] [facility] 02/01/25 Electrostatic Powder Coating Technician Relationship Specialty Start Date End Date Rito Camp MD [address] [place] [address] [phone] PCP - General Family Medicine 12/07/24 Suleman Gustafson [address] [place] [address] Conservation Science Teacher 04/27/21 Alex Brown APRN.GRAVEL SCREENER [address] [place] [address] [facility] 02/01/25 Shanita Green PA-C [facility] [place] [address] [facility] 02/01/25 Team Status: Active Member Role/Relationship Status Dates Dr. Rito Camp MD Primary care physician Active Team Status: Inactive Member Role/Relationship Status Dates Dr. Rito Camp MD Primary care physician Active Start: February 09, 2025 End: February 09, 2025 Dr. Rito Camp MD Referring Provider Active Start: February 09, 2025 End: February 09, 2025 Letha Emery , CLEAT FEEDER-C Attending physician Active Start: February 09, 2025 End: February 09, 2025 Team Status: Inactive Member Role/Relationship Status Dates Dr. Rito Camp MD Primary care physician Active Start: March 02, 2025 Dr. Minerva Shore MD Attending physician Active Start: March 02, 2025 Team Status: Inactive Member Role/Relationship Status Dates Dr. Rito Camp MD Primary care physician Active Start: March 31, 2025 End: March 31, 2025 Dr. Rito Camp MD Referring Provider Active Start: March 31, 2025 End: March 31, 2025 Dr. Robe Gill DO Attending physician Active Start: March 31, 2025 End: March 31, 2025 Team Status: Active Member Role/Relationship Status Dates Dr. Rito Camp MD Primary care physician Active Start: March 31, 2025 Dr. Rito Camp MD Referring Provider Active Start: March 31, 2025 Dr. Robe Gill DO Attending physician Active Start: March 31, 2025 Dr. Robe Gill DO Nurse Practitioner Active Start: March 31, 2025 Team Status: Inactive Member Role/Relationship Status Dates Dr. Rito Camp MD Primary care physician Active Start: April 20, 2025 End: April 20, 2025 Dr. Rito Camp MD Referring Provider Active Start: April 20, 2025 End: April 20, 2025 Angella Cueto CLEAT FEEDER-C Attending physician Active Start: April 20, 2025 End: April 20, 2025 Team Status: Active Member Role/Relationship Status Dates Dr. Rito Camp MD Primary care physician Active Start: May 06, 2025 Angella Cueto CLEAT FEEDER-C Attending physician Active Start: May 06, 2025 Angella Cueto CLEAT FEEDER-C Referring Provider Active Start: May 06, 2025 Team Status: Inactive Member Role/Relationship Status Dates Dr. Rito Camp MD Primary care physician Active Start: May 10, 2025 End: May 10, 2025 Angella Cueto CLEAT FEEDER-C Attending physician Active Start: May 10, 2025 End: May 10, 2025 Angella Cueto CLEAT FEEDER-C Referring Provider Active Start: May 10, 2025 End: May 10, 2025 Team Status: Active Member Role/Relationship Status Dates Dr. Rito Camp MD Primary care physician Active Start: June 08, 2025 Dr. Rito Camp MD Referring Provider Active Start: June 08, 2025 SUNNY De La Garza Attending physician Active Sta rt: June 08, 2025 Team Status: Inactive Member Role/Relationship Status Dates Dr. Rito Camp MD Primary care physician Active Start: June 08, 2025 End: June 08, 2025 Dr. Pieter Camacho MD Attending physician Active Start: June 08, 2025 End: June 08, 2025 Team Status: Inactive Member Role/Relationship Status Dates Dr. Rito Camp MD Primary care physician Active Start: June 08, 2025 End: June 08, 2025 Dr. Rito Camp MD Referring Provider Active Start: June 08, 2025 End: June 08, 2025 SUNNY De La Garza Attending physician Active Sta rt: June 08, 2025 End: June 08, 2025 Goals (unrecognized section and content) Goals may [...] ized section and content) DATE CREATED AUTHOR 06/12/2025 [facility] DATE CREATED AUTHOR AUTHOR'S SHARONDAIZ ATION 07/11/2025 [facility] FOR RECORDS PERTAINING TO PATIENTS WHO ARE [...] BE BASED ON THE PRIMARY CLINICAL RECORDS. [employer] [facility]. provides no warranty or guarantee of the accuracy or completeness of information in this document.
[2025-08-27 09:27] LABS: Mucous, Urine 0 SEEN /hpf (<or=2+); Red Blood Cells-Urine 0 SEEN /hpf (0-5)
[2025-08-27 09:30] LABS: Color, Urine Yellow (Yellow); Glucose, Dipstick Normal (Normal); Ketone-Dipstick 50 mg/dl (Negative); Leukocyte Esterase-Dipstick Negative /ul (Negative); Nitrite-Dipstick Negative (Negative); Occult Blood-Urine 25 /ul (Negative); Protein-Dipstick 15 mg/dl (Negative); Specific Gravity, Urine 1.015 (1.002-1.030); Urine Bilirubin Dipstick Negative (Negative)
[2025-08-27 09:39] LABS: Squamous Epithelial Cells - UA 0-5 SEEN /hpf (5-10)
[2025-08-27 09:41] LABS: Lipase 42 U/L (13-75)
[2025-08-27 09:42] LABS: AST(SGOT) 23 U/L (<=31); Alanine Aminotransfer ALT/SGPT 14 U/L (<=34); Albumin, Serum 4.2 g/dL (3.4-4.8); Alkaline Phosphatase 61 U/L (35-104); Anion Gap 12 (7-18); BUN 13 mg/dL (4-19); BUN/Creat Ratio 19.3 RATIO (10-20); Calcium,Total 9.3 mg/dL (7.6-11.0); Carbon Dioxide 24.0 mmol/L (20.0-29.0); Chloride 100 mmol/L (96-106); Estimated Creatinine Clearance 42.01 ml/min (50-250); Globulin 3.2 g/dL (2.2-4.2); Glucose 89 mg/dL (70-99); Potassium 4.4 mmol/L (3.5-5.1)
[2025-08-27] MEDS: Piperacil/Tazobactam 3.375 GM in 0.9% Normal Saline (50mL MB+) 50 ML IV ×2 (11:14→21:00)
--- OUTSIDE RECORDS SUMMARY | 2025-08-27 11:36 | XMS RPT_ITS | CCD ---
Author Organization [facility] Care Team Providers Care Bobbin Inspector Name Role Phone Rito Camp MD Primary Care Provider Dale FRIEDMAN, Kami Crum Unavailable Unavail able Suleman Gustafson Unavailable Dr. Rito Camp Primary Care Provider Leila HOLTER TECHNICIAN, HOLTER TECHNICIAN-C Sierra Referring Provider Leila HOLTER TECHNICIAN, HOLTER TECHNICIAN-C Sierra Other Provider Dr. Jim Simeon Attending [...] Provider Dr. Jeffrey Mckee Attending Provider Leila HOLTER TECHNICIAN, HOLTER TECHNICIAN-C Sierra Attending Provider Dr. Tyler Green Emergency Provider Dr. Boby Jordan Admit Provider Dr. Boby Jordan Attending Provider Dr. Boby Jordan Other Provider Dr. Mick Pelletier Other Provider Dr. Jzaz Collins Attending Provider Dr. Jazz Collins Other Provider Dr. Mick Pelletier Attending Provider Bertin FRIEDMAN, Ruth Unavailable Unavailable Dale FRIEDMAN, Kami Crum Unavailable Keith FRIEDMAN, Christine Unavailable Unavailable Rito Camp MD Primary Care Provider Dr. Rito Camp Primary Care Provider Dr. Rito Camp Referring Provider Leila HOLTER TECHNICIAN, HOLTER TECHNICIAN-C Sierra Attending Provider Naina FONTANEZ, Rito Vines Primary Care Provider [phone] Asif SMYTH MD, Darvin A Primary Care Provider Tasneem vailable Bran PHILLIPS.MERCHANDISE EXAMINER, Alex Unavailable Peter DOBBINS, Shanita Unavailable Naina [...] Referring Provider Yuly VOSS-CLetha Attending Provider Bran PHILLIPS.MERCHANDISE EXAMINER, Alex Unavailable Peter DOBBINS, Shanita Unavailable Dr. Rito Camp MD Primary Care Provider [phone] Naina FONTANEZ, Dr. Veras Referring Provider Dr. Minerva Shore MD Attending Provider Dr. Robe Gill DO Attending Provider Dr. Robe Gill DO Other Provider Naina FONTANEZ, Dr. Veras Primary Care Provider [phone] Naina FONTANEZ, Dr. Veras Referring Provider Dr. Minerva Shore MD Attending Provider Rom VOSS-C, Angella Attending Provider Naina FONTANEZ, Dr. Veras Primary Care Provider Rom HOLTER TECHNICIAN-C, Angella Referring Provider Naina FONTANEZ, Dr. Veras [...] Unavailable Naina, Rito Primary Care Unavailable Leila HOLTER TECHNICIANSierra Referring Unavailable Leila HOLTER TECHNICIAN, Sierra Attending Unavailable Naina, Rito Primary Care [...] A Referring Unavailable ALEX BROWN Attending Unavailable NANIA, RITO A Primary Care Unavailable GREEN, SHANITA [...] (1 source) Lisinopril Drug Allergy 6 Cough [facility] Shellfish (1 source) Shellfish Food Allergy 3 Unknown [facility] (20 sources) Fish; Translations: [FISH] Food Allergy 5 [facility] Work Phone: (20 sources) Lisinopril; Translations: [LISINOPRIL] Drug Allergy 6 Cough [facility] Work Phone: (20 sources) HORSE SERUM [Other] Propensity to adverse reactions 5 Unknown [facility] Work Phone: (20 sources) SEAFOOD [Other] Propensity to adverse reactions 5 [facility] Work Phone: (4 sources) Seafood Allergy to substance 1 Angioedema [facility] Work Phone: (17 sources) Fish Containing Products; Translations: [Fish Containing Products] Allergy to substance 1 Angioedema [facility] (3 sources) horse serum Allergy to substance 1 Unknown [facility] Work Phone: (14 sources) Horse/Equine Containing Products; Translations: [HORSE/EQUINE CONTAINING PRODUCTS] Allergy to substance 2 NEEDS FOLLOW-UP [facility] (20 sources) Shellfish; Translations: [shellfish derived] Allergy to substance 3 Unknown [facility] (20 sources) Horse/Equine Containing Products Propensity to adverse reactions to drug 3 Unknown [facility] Work Phone: (1 source) Lisinopril Drug Allergy 5 [facility] (1 source) Horse/Equine Containing Products Drug allergy (disorder) 5 [facility] Medications Current Medications Medication Drug [...] Comment on above: Take 1,000 mg by [facility] twice daily. azithromycin 250 mg oral tablet [...] daily until gone. Take 2 tablets by [facility] once daily for 1 day, THEN 1 tablet once daily for 4 days. biotin 5 mg sublingual tablet (20 sources) Start: 02-23-2021 take 1 tablet under the tongue once daily BIOTIN ORAL Take 5,000 mcg by mouth. Active BIOTIN ORAL Take 5,000 mcg by mouth. 0 Active Comment on above: Take 5,000 mcg by [facility]. Budesonide-Formoterol (20 sources) Corticosteroid, beta2-Adrenergic Agonist [...] use Start: 08-19-2023 take 1 puff(s) by [facility] twice daily Budesonide-Formoterol (Symbicort) 160-4.5 mcg/actuation [...] use Start: 08-29-2022 take 1 puff(s) by [facility] twice daily Budesonide-Formoterol (Symbicort) 160-4.5 mcg/actuation [...] use Start: 03-17-2022 take 1 puff(s) by [facility] twice daily Budesonide-Formoterol (Symbicort) 160-4.5 mcg/actuation [...] sources) Start: 06-01-2023 take 1 tablet by [facility] once daily Start: 05-09-2016 End: 04-27-2021 take [...] 20 mg/ml oral solution (20 sources) Uncompetitive E-hovbmc-P-asparta te Receptor Antagonist, Sigma-1 Agonist Start: 06-10-2024 [...] Comment on above: Take 1 capsule by [facility] once daily. perflutren lipid microspheres 1.3 [...] 1 tablet by mouth once daily Vitamin V04-Xejuu Acid (Folic Acid Plus B12) 1-0.8 mg Tablet (1 source) Start: 03-17-2022 take 1 tablet by mouth once daily Vitamin J31-Ufrko Acid (Folic Acid Plus B12) 1-0.8 mg [...] for pain for up to 3 days. [id number] 200 actuat albuterol 0.09 mg/actuat metered dose [...] Comment on above: Take 1 tablet by [facility] one time a week. Take with a [...] on above: Take 1 capsule by [facility] three times a day as needed. Take [...] Corticosteroid, beta2-Adrenergic Agonist Start: 11-07-2018 End: 10-12-2019 Neuzpvsmixv-Wbevubrat-Huao nter (Trelegy Ellipta) 100-62.5-25 mcg blister with device Discontinued 1 NMA INHALATION DAILY 3 3 November 07, 2018 2:57pm October 12, 2019 11:24am Start: 11-07-2018 End: 10-12-2019 Fnndpvczkey-Rbjtjkyhj-Ercqwk er (Trelegy Ellipta) 100-62.5-25 mcg blister with device Discontinued 1 NMA INHALATION DAILY 3 November 07, 2018 2:57pm October 12, 2019 11:24am Start: 11-07-2018 End: 10-12-2019 Wyrgiuqmnov-Wrpebkfhb-Ubethu er (Trelegy Ellipta) 100-62.5-25 mcg blister with device Discontinued 1 INH INHALATION DAILY November 07, 2018 2:57pm October 12, 2019 11:24am Start: 11-07-2018 End: 11-07-2018 Yjkaymgtcgp-Xjgdpnyic-Tmenjr er (Trelegy Ellipta) 100-62.5-25 mcg blister with device Discontinued 1 NMA INHALATION DAILY 3 3 November 07, 2018 2:39pm November 07, 2018 2:57pm Start: 11-07-2018 End: 11-07-2018 Gepfzsarbwa-Klqqxkfip-Sugsit er (Trelegy Ellipta) 100-62.5-25 mcg blister with device Discontinued 1 NMA INHALATION DAILY November 07, 2018 2:39pm November 07, 2018 2:57pm Start: 11-07-2018 End: 11-07-2018 Zodhrplhodg-Iedksvhoj-Anyhcq er (Trelegy Ellipta) 100-62.5-25 mcg blister with device Discontinued 1 INH INHALATION DAILY November 07, 2018 2:39pm November 07, 2018 2:57pm Start: 07-04-2018 End: 11-07-2018 Rgsiiufzbzr-Spugzodbc-Gfvuac er (Trelegy Ellipta) 100-62.5-25 mcg blister with device Discontinued 1 INH INHALATION DAILY July 04, 2018 3:42pm November 07, 2018 2:40pm Start: 07-04-2018 End: 11-07-2018 Zraoxapyaas-Aqltzkevh-Xutwwl er (Trelegy Ellipta) 100-62.5-25 mcg blister with device Discontinued 1 NMA INHALATION DAILY July 04, 2018 12:00am November 07, 2018 2:40pm Start: 07-04-2018 End: 11-07-2018 Hgvosympfrm-Meaxoyzxt-Xbswlz er (Trelegy Ellipta) 100-62.5-25 mcg blister with [...] sources) Anticholinergic Start: 09-15-2024 End: 03-25-2025 Ipratropium Tenmile 42 mcg (0.06 %) spray,non-aerosol Discontinued 2 NMA INTRANASAL THREE TIMES A DAY 15 September 15, 2024 1:00am March 25, 2025 3:59pm administer into each nostril Ipratropium Tenmile 42 mcg (0.06 %) spray,non-aerosol (7 sources) Start: 09-15-2024 End: 03-25-2025 Ipratropium Tenmile 42 mcg (0.06 %) spray,non-aerosol Discontinued 2 [...] 2:21pm October 19, 2024 11:50am breathing multivit-min/folic acid/tdf118 (ALIVE WOMEN'S GUMMY VITAMINS ORAL) (2 sources) End: multivit-min/folic acid/png484 (ALIVE WOMEN'S GUMMY VITAMINS ORAL) Take by [...] on above: Take 1 capsule by mo [facility] daily at bedtime. nystatin 446671 unt/ml oral suspension (16 sources) Polyene Antifungal [...] Comment on above: Take 1 tablet by [facility] once daily. Peg 3350-Sod Sulf,Uqwv-Nbr-Ani (2 sources) Start: 12-17-2024 End: 12-21-2024 Peg 3350-Sod Sulf,Into-Yfw-Aaf (Suflave) 178.7-7.3-0.5 gram recon soln Discontinued 0 PO .COMPLEX 2 0 December 17, 2024 12:00am December 21, 2024 5:32pm take as directed for split dose bowel prep Peg 3350-Sod Sulf,Mnao-Xlw-Xiv (Suflave) 178.7-7.3-0.5 gram recon soln (6 sources) Start: 12-17-2024 End: 12-21-2024 Peg 3350-Sod Sulf,Hakd-Xex-Vqh (Suflave) 178.7-7.3-0.5 gram recon soln Discontinued 0 [...] tablet 06/05/2024 08/03/2024 Discontinued polyethylene glycol 3350 561930 mg / potassium chloride 2970 mg / sodium bicarbonate 6740 mg / sodium chloride 5860 mg / sodium sulfate 94607 mg powder for oral solution (8 sources) [...] 2.5 ug by inhalation once daily Tiotropium Tenmile (Spiriva Respimat) 2.5 mcg/actuation mist Discontinued 2 NMA INHALATION daily 3 December 06, 2021 1:31pm March 17, 2022 11:10pm administer at approximately the same time(s) each day Start: 01-06-2020 End: 02-25-2023 take 1 puff(s) by inhalation once daily Tiotropium Tenmile (Spiriva Respimat) 2.5 mcg/actuation mist Discontinued 2 PUFF INHALATION daily December 06, 2021 1:31pm March 17, 2022 11:10pm administer at approximately the same time(s) each day Start: 10-12-2019 End: 01-06-2020 take 2.5 ug by inhalation once daily Tiotropium Tenmile (Spiriva Respimat) 2.5 mcg/actuation mist Discontinued 2 NMA INHALATION daily 3 October 12, 2019 11:25am January 06, 2020 1:01pm administer at approximately the same time(s) each day Start: 10-12-2019 End: 01-06-2020 take 2.5 ug by inhalation once daily Tiotropium Tenmile (Spiriva Respimat) 2.5 mcg/actuation mist Discontinued 2 NMA INHALATION daily October 12, 2019 11:25am January 06, 2020 1:01pm administer at approximately the same time(s) each day Start: 10-12-2019 End: 01-06-2020 take 1 puff(s) by inhalation once daily Tiotropium Tenmile (Spiriva Respimat) 2.5 mcg/actuation mist Discontinued 2 PUFF INHALATION daily October 12, 2019 11:25am January 06, 2020 1:01pm administer at approximately the same time(s) each day Start: 09-21-2019 End: 10-12-2019 take 2.5 ug by inhalation once daily Tiotropium Tenmile (Spiriva Respimat) 2.5 mcg/actuation mist Discontinued 2 NMA INHALATION daily 3 September 21, 2019 1:27pm October 12, 2019 11:26am administer at approximately the same time(s) each day Start: 09-21-2019 End: 10-12-2019 take 2.5 ug by inhalation once daily Tiotropium Tenmile (Spiriva Respimat) 2.5 mcg/actuation mist Discontinued 2 NMA INHALATION daily September 21, 2019 1:27pm October 12, 2019 11:26am administer at approximately the same time(s) each day Start: 09-21-2019 End: 10-12-2019 take 1 puff(s) by inhalation once daily Tiotropium Tenmile (Spiriva Respimat) 2.5 mcg/actuation mist Discontinued 2 PUFF INHALATION daily September 21, 2019 1:27pm October 12, 2019 11:26am administer at approximately the same time(s) each day Start: 09-14-2019 End: 09-21-2019 take 2.5 ug by inhalation once daily Tiotropium Tenmile (Spiriva Respimat) 2.5 mcg/actuation mist Discontinued 2 NMA INHALATION daily 09 07September 14, 2019 4:34pm September 21, 2019 1:27pm administer at approximately the same time(s) each day Start: 09-14-2019 End: 09-21-2019 take 2.5 ug by inhalation once daily Tiotropium Tenmile (Spiriva Respimat) 2.5 mcg/actuation mist Discontinued 2 NMA INHALATION daily September 14, 2019 4:34pm September 21, 2019 1:27pm administer at approximately the same time(s) each day Start: 09-14-2019 End: 09-21-2019 take 1 puff(s) by inhalation once daily Tiotropium Tenmile (Spiriva Respimat) 2.5 mcg/actuation mist Discontinued 2 PUFF INHALATION daily September 14, 2019 4:34pm September 21, 2019 1:27pm administer at approximately the same time(s) each day Start: 09-14-2019 End: 09-14-2019 take 2.5 ug by inhalation once daily Tiotropium Tenmile (Spiriva Respimat) 2.5 mcg/actuation mist Discontinued 2 NMA INHALATION daily 09 07September 14, 2019 4:32pm September 14, 2019 4:34pm administer at approximately the same time(s) each day Start: 09-14-2019 End: 09-14-2019 take 2.5 ug by inhalation once daily Tiotropium Tenmile (Spiriva Respimat) 2.5 mcg/actuation mist Discontinued 2 NMA INHALATION daily September 14, 2019 4:32pm September 14, 2019 4:34pm administer at approximately the same time(s) each day Start: 09-14-2019 End: 09-14-2019 take 1 puff(s) by inhalation once daily Tiotropium Tenmile (Spiriva Respimat) 2.5 mcg/actuation mist Discontinued 2 PUFF INHALATION daily September 14, 2019 4:32pm September 14, 2019 4:34pm administer at approximately the same time(s) each day Start: 02-04-2019 End: 09-14-2019 take 2.5 ug by inhalation once daily Tiotropium Tenmile (Spiriva Respimat) 2.5 mcg/actuation mist Discontinued 2 NMA INHALATION daily 09 07February 04, 2019 12:06pm September 14, 2019 4:32pm administer at approximately the same time(s) each day Start: 02-04-2019 End: 09-14-2019 take 2.5 ug by inhalation once daily Tiotropium Tenmile (Spiriva Respimat) 2.5 mcg/actuation mist Discontinued 2 NMA INHALATION daily February 04, 2019 12:06pm September 14, 2019 4:32pm administer at approximately the same time(s) each day Start: 02-04-2019 End: 09-14-2019 take 1 puff(s) by inhalation once daily Tiotropium Tenmile (Spiriva Respimat) 2.5 mcg/actuation mist Discontinued 2 PUFF INHALATION daily February 04, 2019 12:06pm September 14, 2019 4:32pm administer at approximately the same time(s) each day Start: 02-04-2019 End: 02-04-2019 take 2.5 ug by inhalation once daily Tiotropium Tenmile (Spiriva Respimat) 2.5 mcg/actuation mist Discontinued 2 NMA INHALATION daily 09 07February 04, 2019 12:05pm February 04, 2019 12:07pm administer at approximately the same time(s) each day Start: 02-04-2019 End: 02-04-2019 take 2.5 ug by inhalation once daily Tiotropium Tenmile (Spiriva Respimat) 2.5 mcg/actuation mist Discontinued 2 NMA INHALATION daily February 04, 2019 12:05pm February 04, 2019 12:07pm administer at approximately the same time(s) each day Start: 02-04-2019 End: 02-04-2019 take 1 puff(s) by inhalation once daily Tiotropium Tenmile (Spiriva Respimat) 2.5 mcg/actuation mist Discontinued 2 PUFF INHALATION daily February 04, 2019 12:05pm February 04, 2019 12:07pm administer at approximately the same time(s) each day Start: 12-22-2018 End: 10-01-2023 SPIRIVA RESPIMAT 2.5 mcg/act uation inhaler 12/22/2018 10/01/2023 Discontinued Start: 12-22-2018 End: 02-04-2019 take 1 puff(s) by inhalation once daily Tiotropium Tenmile (Spiriva Respimat) 2.5 mcg/actuation mist Discontinued 2 PUFF INHALATION daily December 22, 2018 10:48am February 04, 2019 12:05pm administer at approximately the same time(s) each day Start: 12-22-2018 End: 02-04-2019 take 2.5 ug by inhalation once daily Tiotropium Tenmile (Spiriva Respimat) 2.5 mcg/actuation mist Discontinued 2 NMA INHALATION daily 09 07December 22, 2018 12:00am February 04, 2019 12:05pm administer at approximately the same time(s) each day Start: 12-22-2018 End: 02-04-2019 take 2.5 ug by inhalation once daily Tiotropium Tenmile (Spiriva Respimat) 2.5 mcg/actuation mist Discontinued 2 NMA INHALATION daily December 22, 2018 12:00am February 04, 2019 12:05pm administer at approximately the same time(s) each day Start: 12-22-2018 End: 02-04-2019 take 1 puff(s) by inhalation once daily Tiotropium Tenmile (Spiriva Respimat) 2.5 mcg/actuation mist Discontinued 2 [...] Comment on above: Take 1 capsule by [facility] once daily. triamcinolone acetonide 40 mg/ml [...] 12:00am April 16, 2022 9:10am infection Vitamin K22-Wlwkh Acid (5 sources) Start: 03-17-2022 End: 02-25-2023 take 1 tablet by mouth once daily Vitamin P57-Lgxhq Acid Discontinued 1 TABLET PO DAILY March 17, 2022 12:00am February 25, 2023 9:30am Start: 03-17-2022 take 1 tablet by [facility] once daily Vitamin Y92-Sxjnc Acid Active 1 TABLET PO DAILY March 17, 2022 12:00am Vitamin A08-Oecev Acid 1-0.8 mg Tablet (9 sources) Start: 03-17-2022 End: 02-25-2023 Vitamin S43-Jxbrc Acid 1-0.8 mg Tablet Discontinued 1 {tbl} PO DAILY March 17, 2022 12:00am February 25, 2023 9:30am supplement Start: 03-17-2022 End: 02-25-2023 Vitamin Q99-Xvktn Acid 1-0.8 mg Tablet Discontinued 1 {tbl} [...] (20 sources) Patient encounter status; Translations: [Other alf (current) drug therapy] Onset: 1 01-27-2021 Episodic [...] uncomplicated] Onset: 5 Chronic Comment on above: 88-oweh-dggz smoking history quit completely in 2010, repeat [...] 01-27-2021 Episodic Other aftercare (1 source) Other alf (current) drug therapy; Translations: [Medication management] Onset: 01-27-2021 Episodic Other circulatory disease (1 source) Other specified symptoms and signs involving the circulatory and respiratory systems; Translations: [Choking in adult] Onset: 10-01-2024 Episodic Other UTILITY WORKER infection and poliomyelitis (20 sources) Epidural abscess; [...] CNOV Office Visit (FAMPWS ) DIANAASHLYNDIONY SIMS ([id number]) 1955 F Date Time Provider Department 07/06/25 9:40 AM ALEX BROWN During your visit today, we recorded the following information about you: Pulse Blood pressure Weight 99/minute 128/80 40 kg Alex Brown APRN.[facility] 07/06/2025 9:38 AM Signed Chief Complaint [...] (EXEP) 05/23/2021 EF=65%, 1+TI. COLONOSCOPY N/A 03/31/2025 [facility] - Dr. Gill COLONOSCOPY FLX DX W/COLLJ SPEC WHEN PFRMD 08/19/2006 Repeat in COLONOSCOPY FLX DX W/COLLJ SPEC WHEN PFRMD 06/27/2016 Colonoscopy CRANIOPLASTY SKULL DEF/REPAIR/ BRAIN 09/14/2014 See scanned documents - status post EGD W/O [facility] SPEC VARICIES INJ N/A 03/31/2025 [facility] - Dr. Gill ESOPHAGOGASTRODUODENO SCOPY TRANSORAL [...] by mouth (more content not included)... Normal [facility] MARCIANO SCREENING W TOMOon 07-05 MARCIANO SCREENING W TENISHA * * *Final Report* * * DATE OF EXAM: Jul 05 2025 11:11AM [facility] 0582 - MARCIANO SCREENING W TENISHA / PROCEDURE REASON: Encounter for screening mammogram for breast cancer * * * * Physician Interpretation * * * * RESULT: [facility] SPECIALTY [place] [address] [place] [address] #[id number] - MARCIANO SCREENING W TENISHA HISTORY: 70 [...] John Pérez M.D. Electronically signed on: 07/05/2025 Telephone Messenger: KYLAH Transcribe Date/Time: Jul 05 2025 11:00A Dictated by: JOHN PÉREZ MD This examination was interpreted and the report reviewed and electronically signed by: JOHN PÉREZ MD on Jul 05 2025 2:15PM EST [id number] Normal [facility] Joel 06-10-2025 JOSSE Telephone (4CQ) DIONY RAMIREZ ([id number]) 1955 F Date Time Provider Department 06/10/25 [...] phone number to schedule at her leisure [phone] as requested. Allergies As of Date: 06/10/2025 Noted Allergy Reaction FISH 06/23/2005 16 - Unknown HORSE/EQUINE CONTAINING PRODUCTS 08/30/2023 16 - Unknown LISINOPRIL 12/07/2015 3 - Cough SHELLFISH DERIVED 08/30/2023 16 - Unknown Date Reviewed: 05/27/2025 Reviewed by: Rito Camp MD - Fully Assessed Reason for Visit: Orders [681] Primary Visit Diagnosis:Encounter for screening mammogram for breast cancer [Z12.31] Order(s):[facility] SCREENING [[id number]] Order #: [id number] FUTURE Prescriptions as of 06/11/2025 - celecoxib [...] nodules [R91.8 (more content not included)... Normal [facility] L/S Spine Min 4 Viewson 10-0 7-2025 L/S Spine Min 4 Views [facility] Services [address] [place] [address] L/S Spine Min 4 Views MR#: [id number] Acct: [id number] Name: JENA RAMIREZ Rep #: [id number] : 1955 F 70 From: Velia Green MD PCP: Dr. Rito Camp MD Status: DEP AMB Study: L/S Spine Min 4 Views Date of Exam: 06/08/25 Exam# [id number] Ordering Dr: Lanette Carter EXAM: XR Lumbosacral [...] L2 vertebral body, likely chronic. Reading Location: [facility] CC: SUNNY De La Garza; Dr. Rito Camp MD Telephone Messenger: Signed Normal [facility] Orthopedic Visit Reporton Orthopedic Visit Report [facility] [address] [place] [address] OFFICE VISIT Date of Service: 06/08/25 MR#: [id number] Acct: [id number] Name: JENA RAMIREZ [place] Rep #: [id number] : 1955 Provider: SUNNY De La Garza Age/Sex: 70/F Location: [facility] Status: Signed Intake Vital Signs 04/20/25 10:26 [...] side bilateral (more content not included)... Normal [facility] CNOVon 05-27-2025 CNOV Office Visit (FAMPWS ) DIONY RAMIREZ ([id number]) 1955 F Date Time Provider Department 05/27/25 [...] re-evaluated and possibly have XR completed again. Doiny Ramirez is a 70-year-old female presenting with [...] which she received an injection from her painter airbrush, Dr. Epstein, yesterday. She initially sought evaluation [...] improved since the fall. She notes that rqdt-dzl-txrshvc medications, including 800 mg of ibuprofen, have been ineffective. She has been using a wrist brace and applying ice packs twice daily, but reports no significant relief. She also tried various topical treatments, including lidocaine, Nevive, and [address], without improvement. The pain is affecting her [...] exam a (more content not included)... Normal [facility] XR HAND 3V PA/LAT/OBL RTon 0 05-27-2025 [...] acute osseous abnormality. Degenerative changes as described. Telephone Messenger: LEONARDO Transcribe Date/Time: May 27 2025 9:45A Dictated by : GARETH ESCAMILLA DO This examination was interpreted and the report reviewed and electronically signed by: GARETH ESCAMILLA DO on May 27 2025 9:51AM EST [id number] N Normal [facility] XR WRIST 3V PA/LAT/OBL RTon 05-27-2025 XR [...] acute osseous abnormality. Degenerative changes as described. Telephone Messenger: PSCB Transcribe Date/Time: May 27 2025 9:45A Dictated by : GARETH ESCAMILLA DO This examination was interpreted and the report reviewed and electronically signed by: GARETH ESCAMILLA DO on May 27 2025 9:51AM EST [id number] N Normal [facility] MRI LUMBAR SPINE WO IVCONon 05-24-2025 MRI [...] and assume there are 5 lumbar-type vertebrae. Telephone Messenger: PSCB Transcribe Date/Time: May 24 2025 9:26A Dictated by : CHARLIE CRAMER MD This examination was interpreted and the report reviewed and electronically signed by: CHARLIE CRAMER MD on May 24 2025 9:39AM EST [id number] N Normal [facility] CNPKinsey 05-21-2025 CNPN Telephone (RUSWS) DIONY RAMIREZ ([id number]) 1955 F Date Time Provider Department 05/21/25 [...] Date Reviewed: 05/16/2025 Reviewed by: [place], [place], MARKETER.MERCHANDISE EXAMINER - Fully Assessed Reason for Visit: disk [...] once daily. - Dextromethorphan-guai FENesin (ROBITUSSIN COUGH-CHEST ESTEFANAÍ DM) 5-100 mg/5 mL liqd Take 10 [...] hip [M25.552] (more content not included)... Normal [facility] DION[facility] RAMIRE[facility] ([id number]) 1955 F Date Time Provider Department [facility] your visit today, we recorded the [...] Date Reviewed: 05/16/2025 Reviewed by: Ky Shaver, ALAN.MERCHANDISE EXAMINER - Fully Assessed Reason for Visit: Patient Question [4367] Prescriptions as of 05/21/2025 - cyclobenzaprine (FLEXERIL) [...] [J43.9] 03/18/2015 (more content not included)... Normal [facility] CNOVon 05-16-2025 CNOV Office Visit (WOUCA) DIONY RAMIREZ ([id number]) 1955 F Date Time Provider Department 05/16/25 [...] WRIST GENERAL 3V PA/LAT/OBL RIGHT Ky Shaver APRN.MERCHANDISE EXAMINER Disposition The patient was discharged. Procedures Referring Provider: SELF [200] Allergies As of Date: 05/16/2025 Noted Allergy Reaction FISH 06/23/2005 16 - Unknown HORSE/EQUINE CONTAINING PRODUCTS 08/30/2023 16 - Unknown LISINOPRIL 12/07/2015 3 - Cough SHELLFISH DERIVED 08/30/2023 16 - Unknown Date Reviewed: 05/16/2025 Reviewed by: Ky Shaver APRN.MERCHANDISE EXAMINER - Fully Assessed Reason for Visit: right wrist pain [Other] Cmt: Fell 1/2 hour ago Primary Visit Diagnosis:Injury of right wrist, initial encounter [S69.91XA] Order(s):XR WRIST GENERAL 3V PA/LAT/OBL RIGHT [[id number]] Order #: [id number] FUTURE Prescriptions as of 05/16/2025 - cyclobenzaprine [...] 12/07/2015 Lumbar (more content not included)... Normal [facility] XR WRIST 3V PA/LAT/OBL RTon 05-16-2025 XR [...] No radiographic evidence of acute osseous injury Telephone Messenger: [facility] Transcribe Date/Time: May 16 2025 1:05P Dictated by : KATIE WATERS MD This examination was interpreted and the report reviewed and electronically signed by: KATIE WATERS MD on May 16 2025 1:06PM EST [id number] Normal [facility] XR Wrist - right PA and Late ral and Obliqueon 05-16-2025 IMPRESSION: No radiographic evidence of acute osseous injury Telephone Messenger: PSCB Transcribe Date/Time: May 16 2025 1:05P [...] Joint spaces preserved. DIVISION OF RADIOLOGY Provider, [facility] - 05/16/2025 * * *Final Report* * [...] No radiographic evidence of acute osseous injury Telephone Messenger: LEONARDO Transcribe Date/Time: May 16 2025 1:05P Dictated by : KATIE WATERS MD This examination was interpreted and the report reviewed and electronically signed by: KATIE WATERS MD on May 16 2025 1:06PM [facility] Radiology Study observation (narrative) Carlos nguyen [facility] XR Wrist - right PA and Late ral and ObliqueOrdered By: [facility] Provider on 05-16-2025 [facility] CNOVon 05-14-2025 CNOV Office Visit (SHELBYWS ) DIONY RAMIREZ ([id number]) 1955 F Date Time Provider Department 05/14/25 10:40 AM ALEX BROWN During your visit today, we recorded the following information about you: Pulse Blood pressure Weight 86/minute 153/74 40 kg Alex Brown, ALAN.MERCHANDISE EXAMINER 05/14/2025 10:42 AM Signed Chief Complaint Patient [...] (EXEP) 05/23/2021 EF=65%, 1+TI. COLONOSCOPY N/A 03/31/2025 [facility] - Dr. Gill COLONOSCOPY FLX DX W/COLLJ SPEC WHEN PFRMD 08/19/2006 Repeat in COLONOSCOPY FLX DX W/COLLJ SPEC WHEN PFRMD 06/27/2016 Colonoscopy CRANIOPLASTY SKULL DEF/REPAIR/ BRAIN 09/14/2014 See scanned documents - status post EGD W/O [facility] SPEC VARICIES INJ N/A 03/31/2025 [facility] Ernie Gill ESOPHAGOGASTRODUODENO SCOPY TRANSORAL DIAGNOSTIC [...] one t (more content not included)... Normal [facility] 05-14-2025 [facility] Telephone (INTMWS) DIONY RAMIREZ ([id number]) 1955 F Date Time Provider Department 05/14/25 RITO CAMP INTWS During your visit today, we recorded the following information about you: Jacki Mark LPN 05/14/2025 10:44 AM Signed Electronic SUNNY rec'd and completed for cyclobenzaprine. This was approved. Prior authorization approved Payer: Janet Note from payer: SUNNY Case: [id number], Status: Approved, Coverage Starts on: 02/12/2025 12:00:00 AM, Coverage Ends on: 05/14/2026 12:00:00 AM. Approval Details Authorization number: [id number] Authorized from February 12, 2025 to May [...] to its destination. To be filled at: [facility] [address] [place] [address] - [address] - [phone] Allergies As of Date: 05/14/2025 Noted Allergy Reaction FISH 06/23/2005 16 - Unknown HORSE/EQUINE CONTAINING PRODUCTS 08/30/2023 16 - Unknown LISINOPRIL 12/07/2015 3 - Cough SHELLFISH DERIVED 08/30/2023 16 - Unknown Date Reviewed: 05/14/2025 Reviewed by: Cami Kidd MA - Fully Assessed Reason for Visit: Insurance Authorization [0553] Prescriptions as of 05/14/2025 - cyclobenzaprine (FLEXERIL) [...] Carpal tunnel syndrome, right [G56.01] 01/03/2017 09/21/2019 Finish Mender (more content not included)... Normal [facility] H. PYLORI STOOL AGon 025 H PYLORI STL AG Negative Normal Negative [facility] Comment on above: Result Comment: Perf ormed at: - [facility] [place] [id number] Geospatial Scientist: Yan Parnell PhD, Phone: [phone] Performed By: #### L 3100.1950 ####[facility] [address] [place], [place], [id number] Stool Helicobacter pylori an tigen detection by immunoassayOrdered By: Angella Cueto on 05-10-2025 H. pylori Ag IA Ql (Stl) Negative Negative [facility] Comment on above: Performed at: - [facility] [place] [id number] Director: Yan Parnell PhD, Phone: [phone] SP/HP.SP.Soheila 05-06-2025 SP/HP.SP.EV [facility] Speech Pathology [address] [place] [id number] / REHABILITATION SERVICES INITIAL EVALUATION MR#: [id number] Acct: [id number] Name: JENA RAMIREZ HUDSON Rep #: [id number] : 1955 70 From: Kya Landry M.S., CCC-COIL BUILDER Referring Dr.: Angella Cueto, HOLTER TECHNICIAN-C Status: R EG RCR Insurance: MATH[employer]EM MEDICARE SENIOR [employer]VANTA SELF PAY INSURANCE Visit History Visit Info Date of Eval: 05/06/25 Today is Visit #: 1 Relief Pilot: OSCAR Paredes Attending Doctor: LAURENCE Referring Doctor: [...] 70 year old female [facility] evaluation of oropharyngeal and [...] current prescribed condition?: No Personal Preferred language: Burkinan Patient Allergies Allergies Allergies: Allergies Fish Containing [...] 1 oz (more content not included)... Normal [facility] CNOVon 05-04-2025 CNOV Office Visit (FAMPWS ) DERFLINGER,CANDY J ([id number]) 1955 F Date Time Provider Department 05/04/25 [...] (EXEP) 05/23/2021 EF=65%, 1+TI. COLONOSCOPY N/A 03/31/2025 [facility] - Dr. Gill COLONOSCOPY FLX DX W/COLLJ SPEC WHEN PFRMD 08/19/2006 Repeat in COLONOSCOPY FLX DX W/COLLJ SPEC WHEN PFRMD 06/27/2016 Colonoscopy CRANIOPLASTY SKULL DEF/REPAIR/ BRAIN 09/14/2014 See scanned documents - status post EGD W/O [facility] SPEC VARICIES INJ N/A 03/31/2025 [facility] - Friend ESOPHAGOGASTRODUODENO SCOPY TRANSORAL DIAGNOSTIC 06/27/2016 EGD ESOPHAGOGASTRODUODENO SCOPY TRANSORAL DIAGNOSTIC 06/30/2018 EGD IANDD ABSCESS CMPLX/MULT 07/2013 Epidural abscess- MSSA LIG/TRNSXJ FLP TUBE ABDL/VAG APPR UNI/BI Tubal ligation PAST SURGICAL HISTORY OF spinal surgery PAST SURGICAL HISTOR (more content not included)... Normal [facility] Gastroenterology Visit Repor ton 04-20-2025 Gastroenterology Visit Report [facility] Gastroenterology [address] [place] [address] OFFICE VISIT Date of Service: 04/20/25 MR#: [id number] Acct: [id number] Name: JENA RAMIREZ Rep #: [id number] : 1955 Provider: TRACI neil Age/Sex: 70/F Location[facility] Status: Signed Intake Vital Signs 03/31/25 07:10 [...] you fallen in the past year?: No [facility] Medical History Alcohol use Easy bruising Gastric [...] Vomiting b (more content not included)... Normal [facility] 04-05-2025 [facility] Telephone ([place]) DIONY RAMIREZ ([id number]) 1955 F Date Time Provider Department 04/05/25 SHANITA GREEN [facility] During your visit today, we recorded the [...] subsequent [Z (more content not included)... Normal [facility] Colonoscopy Reporton 025 Colonoscopy Report [facility] Medical Records Department [address] [place] [address] Colonoscopy Report MR#: [id number] Acct: [id number] Name: JENA RAMIREZ HUDSON Rep #: [id number] : 1955 70 From: Robe Gill DO PCP: Dr. Rito Camp MD Status:[facility] [place] [place] Patient Name: Jena Ramirez Procedure Date: 03/31/2025 [...] for surveillance. Procedure Code(s): --- Professional --- 28372, Colonoscopy, flexible; with biopsy, single or multiple CPT copyright 2021 [employer]. All rights reserved. The codes documented in this report are preliminary and upon coder operator review may be revised to meet current compliance requirements. Robe Gill DO 03/31/2025 9:09:10 AM This report has been signed electronically. Number of Addenda: 0 Note Initiated On: 03/31/2025 8:29 AM 03/31/25 0909 Date Robe Gill DO Cosigner Signature: Date (if indicated) CC: Dr. Rito Camp MD; Robe Gill DO Date Dictated: 03/31/2529 D (more content not included)... Normal [facility] EGD Reporton 03-31-2025 EGD Report [facility] Medical Records Department [address] [place] [address] EGD Report MR#: [id number] Acct: [id number] Name: JENA RAMIREZ HUDSON Rep #: [id number] : 1955 70 From: Robe Gill DO PCP: Dr. Rito Camp MD Status:[facility] Patient Name: Jena Ramirez Procedure Date: 03/31/2025 [...] pathology results. Procedure Code(s): --- Professional --- 43699, Esophagogastroduodeno scopy, flexible, transoral; with insertion of guide wire followed by passage of dilator(s) through esophagus over guide wire 33047, 59,51, Esophagogastroduodeno scopy, flexible, transoral; with biopsy, single or multiple CPT copyright 2021 [employer]. All rights reserved. The codes documented in this report are preliminary and upon coder operator review may be revised to meet current compliance requirements. Robe Gill DO 03/31/2025 9:07:01 A (more content not included)... Normal [facility] Immunohistochemical Stainson 03-31-2025 Immunohistochemical Stains -------- Patient Age/Sex Location Account Attending Physician -------- BASIMJENA SIMS HUDSON 70/F EN [id number] Robe Gill DO -------- Specimen: [id number] Received: 03/31/25 Status: MASONOlivia Katia Num: [id number] Spec Type: EGD BIOPSY Subm Dr: Robe [...] developed and their performance characteristics determined by [facility]. They may not have been [...] Attending Physician -------- JENA RAMIREZ 70/F EN [id number] Robe Friend, DO -------- cassette. C. Received [...] specimen is totally submitted in one cassette. NM 03/31/2025 [facility]:[id number] -------- Patient Age/Sex Location Account Attending Physician -------- JENA RAMIREZ 70/F EN [id number] Robe Gill DO -------- Signed (signature on file) Dr. Gabriela Braun MD 04/05/25 1254 -------- Normal [facility] Comment on above: Performed By: #### P [facility] ####[facility] [address] [place], [place], [id number] MR/OP.PROVATon 03-31-2025 MR/OP.PROVAT [facility] Medical Records Department [address] [place] [address] Provation Physician Letter MR#: [id number] Acct: [id number] Name: JENA RAMIREZ Rep #: [id number] : 1955 70 From: Robe Gill DO PCP: Dr. Rito Camp MD Status:[facility] [place] [place] 03/31/2025 Rito Camp MD Re : Colonoscopy [...] Gill DO Date Dictated: 03/31/25828 Date Transcribed: Telephone Messenger: RF Signed Normal [facility] MR/OP.[facility] Medical Records Department [address] [place] [address] Provation Physician Letter MR#: [id number] Acct: [id number] Name: JENA RAMIREZ Rep #: [id number] : 1955 70 From: Robe Gill DO PCP: Dr. Rito Camp MD Status:[facility] 03/31/2025 Rito Camp MD Re : Upper [...] Gill DO Date Dictated: 03/31/25810 Date Transcribed: Telephone Messenger: SANAM Signed [facility] MR/POSTOP.ANEon 03-31-2025 MR/POSTOP.[facility] Medical Records Department [address] [place] [address] Anesthesia Postop Eval I 03/31/25 0900 MR#: [id number] Acct: [id number] Name: JENA RAMIREZ HUDSON Rep #: [id number] : 1955 70 From: Filipe Rahman PCP: Dr. Rito Camp MD Status:REG SDC Y Race: C Location: [place] [address] Anesthesia: Postop Eval I Current Vital Signs [...] Date Filipe Mello Signature: Date CC: Signed [facility] MR/TEHXNRZI6ho 03-31-2025 MR/POSTOPAN2 [facility] Medical Records Department [address] [place] [address] Anesthesia Postop Eval II 03/31/25 0922 MR#: [id number] Acct: [id number] Name: JENA RAMIREZ HUDSON Rep #: [id number] : 1955 70 From: Gustavo Roque MD PCP: Dr. Rito Camp MD Status:REG SDC Y Race: C Location: [place] [address] Anesthesia Postop Eval I Sum Postop Eval [...] MD Cosigner Signature: Date CC: Signed Normal [facility] MR/PAT.GERMANon 03-25-2025 MR/PAT.[facility] Medical Records Department [address] [place] [address] PAT - Anesthesia 03/25/25 1623 MR#: [id number] Acct: [id number] Name: JENA RAMIREZ Rep #: [id number] : 1955 70 From: Humberto Gudino MD PCP: Dr. 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 Hx Hospitalization No 03/25/25 16:02 Any Problems [...] take am of surgery PONV PONV - manager real estate: PONV - manager real estate Female Yes 03/25/25 16:02 HX of Motion [...] 02/09/25 07:42 Respiratory Assessment Respiratory Assessment - manager real estate: Respiratory Tract Infection Hx - manager real estate Hx Respiratory Tract Infection No 03/25/25 16:02 STOP Sleep Apnea STOP Sleep Apnea - manager real estate: STOP Sleep Apnea - manager real estate Hx Hypertension Yes: PER PT, CONTROLLED ON [...] Tobacco Use History Tobacco Use History - manager real estate: Tobacco Use History - manager real estate Tobacco Use Smoking Status Former smoker 03/25/25 16:02 Hx Tobacco Use No 03/25/25 16:02 Years Smoking Packs Smoked per Day Smoking Cessation Date was Yes - quit smoking within 15 03/25/25 16:02 within the last 15 years years Hx Smoking Cessation Date 02/24/16 03/25/25 16:02 Hx Smoking Cessation No 03/25/25 16:02 Counseling Hematologic Medial History Hematologic Hx - manager real estate: Hematologic Medical Hx - chicken cutter Hx of Blood Transfusion No 03/25/25 16:02 [...] /Reproductio n History /Reproductiv e History - manager real estate: /Reproductiv e Hx- manager real estate Hx Now No 03/25/25 16:02 Gestational Age (in weeks): EDC: Hx Hx Para Hx Section SAB No 03/25/25 16:02 [facility] Medical History (Updated 03/25/25 @ 16:13 [...] Stage 2 mo (more content not included)... [facility] 03-17-2025 CNPN Telephone (FAMPWS) DIONY RAMIREZ ([id number]) 1955 F Date Time Provider Department 03/17/25 [facility] During your visit today, we recorded the following information about you: Albania Gill RN 03/17/2025 9:03 AM Signed Benito from [facility] calls with prior authorization questions for [employer]. Questions Answered. Will fax results of prior authorization within 72 hours. Please Watch for response. PRIOR AUTHORIZATION Medication for Prior Authorization: [employer] Insurance Company: [employer] Patient insurance ID number: [id number] ELDER Courtney Janice, LPN 03/17/2025 10:27 AM [...] 09/21/2019 Chr (more content not included)... Normal [facility] BETA 2 GLYCOPROTEIN, IGGon 0 03-15-2025 Beta 2 glycoprotein 1 IgG IA Qn <9 Normal <20 [facility] Comment on above: Order Comment: Crow chavarria Type: BLOOD SPECIMENOrdering Facility: [facility] Address: [address] [place] [address] Result Comment: <20 SGU Negative 20-80 SGU [...] #### 5 076-5, CARDIG, CARDIM, BETA2G, BETA2M ####[facility] LABIA [id number] [place] [address] [place] BETA 2 GLYCOPROTEIN, IGMon 0 03-15-2025 Beta 2 glycoprotein 1 IgM IA Qn <9 Normal <20 [facility] Comment on above: Order Comment: Crow chavarria Type: BLOOD SPECIMENOrdering Facility: [facility] Address: [address] [place] [address] Result Comment: <20 SMU Negative 20-80 SMU [...] #### 5 076-5, CARDIG, CARDIM, BETA2G, BETA2M ####[facility] LABCLIA [id number] [address] [place] CARDIOLIPIN IGG ABSon 2024 Cardiolipin IgG IA Qn (S) <9.0 Normal <15.0 [facility] Comment on above: Order Comment: Crow chavarria Type: BLOOD SPECIMENOrdering Facility: [facility] Address: [address] [place] [address] Result Comment: <15 GPL Negative 15-20 GPL [...] #### 5 076-5, SERVANDO TURCIOS, BETA2G, BETA2M ####[facility] LABIA [id number] [place] [id number] [facility] CARDIOLIPIN IGM ABSon 2024 Cardiolipin IgM IA Qn (S) 16.8 MPL High <12.5 [facility] Comment on above: Order Comment: Speci men Type: BLOOD SPECIMENOrdering Facility: [facility] Address: [address] [place] [address] Result Comment: <12. 5 MPL Negative 12.5-20 MPL Indeterminate >20 MPL Positive The following results were obtained with the [employer].A Lite JOSE JUAN IgM III BRIGETTE. Cardiolipin IgM values obtained with the different manufacturers' assay methods may not be used interchangeably. The magnitude of the reported IgM levels cannot be correlated to an endpoint titer. ??? Performed By: #### 5 076-5, SERVANDO TURCIOS, BETA2G, BETA2M ####[facility] LABIA [id number] [address] OF [facility] CNOVon 03-15-2025 CNOV Office Visit (FAMPWS ) DIONY RAMIREZ ([id number]) 1955 F Date Time Provider Department 03/15/25 [...] See s (more content not included)... Normal [facility] CRP SerPl-mCncon 03-15-2025 CRP [Mass/Vol] mg/L Normal <0.9 [facility] Comment on above: Order Comment: Speci men Type: BLOOD SPECIMENOrdering Facility: [facility] Address: [address] [place] [address] Performed By: #### 1 988-5 ####[facility] LABCLIA [id number] [place] [address] [place] Cardiolipin IgA Ser IA-aCnco n 03-15-2025 Cardiolipin IgA IA Qn (S) <9.0 Normal <12.0 [facility] Comment on above: Order Comment: Speci men Type: BLOOD SPECIMENOrdering Facility: [facility] Address: [address] [place] [address] Result Comment: <12 APL Negative 12-20 APL Indeterminate >20 APL Positive The following results were obtained with the [employer] QUANTA Lite JOSE JUAN IgA III BRIGETTE. Cardiolipin IgA values obtained with the different manufacturers' assay methods may not be used interchangeably. The magnitude of the reported IgA levels cannot be correlated to an endpoint titer. Performed By: #### 5 076-5, CARDIG, CARDIM, BETA2G, BETA2M ####[facility] LABIA [id number] [place] [address] [place] HYPERCOAG PANELon 03-15-2025 Activated protein C resistance Coag (PPP) [Time ratio] 5.92 Ratio Normal >=2.90 [facility] Comment on above: Order Comment: Speci men Type: BLOOD SPECIMENOrdering Facility: [facility] Address: [address] [place] [address] Performed By: #### L [id number], HCOAG ####[facility] LABCLIA [id number] [place] [id number] [place] Antithrombin actual/normal Chromogenic method (PPP) [Rel catalytic activity/Vol] 100 % Normal 84-138 [facility] Comment on above: Order Comment: Speci men Type: BLOOD SPECIMENOrdering Facility: [facility] Address: [address] [place] [address] Performed By: #### L [id number], HCOAG ####[facility] LABCLIA [id number] [place] [address] [place] aPTT Coag (Bld) [Time] 28.9 s Normal 24.0-35.1 [facility] Comment on above: Order Comment: Speci men Type: BLOOD SPECIMENOrdering Facility: [facility] Address: [address] [place] [address] Performed By: #### L [id number], HCOAG ####[facility] LABCLIA [id number] [place] [address] [place] aPTT W excess hexagonal phase phospholipid Coag (PPP) [Time] 41.7 seconds Normal 34.0-51.8 [facility] Comment on above: Order Comment: Speci men Type: BLOOD SPECIMENOrdering Facility: [facility] Address: [address] [place] [address] Performed By: #### L [id number], HCOAG ####[facility] LABCLIA [id number] [address] [place] Coagulation factor VIII activity actual/normal Coag (PPP) [Relative time] 154 % Normal 50-173 [facility] Comment on above: Order Comment: Speci men Type: BLOOD SPECIMENOrdering Facility: [facility] Address: [address] [place] [address] Performed By: #### L [id number], HCOAG ####[facility] LABCLIA [id number] [place] [address] [place] Coagulation factor X activated act Coag Qn (PPP) <0.10 Normal <0.10 [facility] Comment on above: Order Comment: Speci men Type: BLOOD SPECIMENOrdering Facility: [facility] Address: [address] [place] [address] Result Comment: This test was developed, and its performance characteristics determined by the [facility] Department of Pathology and Laboratory Medicine. It has not been cleared or approved by the FDA. The [facility] Department of Pathology and Laboratory Medicine is regulated under CLIA as qualified to perform high-complexity testing. This test is used for clinical purposes. It should not be regarded as investigational or for research. Performed By: #### L [id number], HCOAG ####[facility] LABCLIA [id number] [place] [address] [place] Delta dRVVT Coag (PPP) [Time diff] 2.1 delta seconds Normal <7.1 [facility] Comment on above: Order Comment: Speci men Type: BLOOD SPECIMENOrdering Facility: [facility] Address: [address] [place] [address] Performed By: #### L [id number], HCOAG ####[facility] LABCLIA [id number] [place] [address] [place] dRVVT W excess hexagonal phase phospholipid actual/normal Coag (PPP) [Relative time] 39.5 seconds Normal 34.2-47.9 [facility] Comment on above: Order Comment: Speci men Type: BLOOD SPECIMENOrdering Facility: [facility] Address: [address] [place] [address] Performed By: #### L [id number], HCOAG ####[facility] LABCLIA [id number] [place] [address] [place] FIBRINOGEN ACTIVITY 276 mg/dL Normal 200-400 [facility] Comment on above: Order Comment: Speci men Type: BLOOD SPECIMENOrdering Facility: [facility] Address: [address] [place] [address] Performed By: #### L [id number], HCOAG ####[facility] LABCLIA [id number] [place] [address] [place] Protein C actual/normal Coag (PPP) [Relative time] 100 % Normal 76-147 [facility] Comment on above: Order Comment: Speci men Type: BLOOD SPECIMENOrdering Facility: [facility] Address: [address] [place] [address] Performed By: #### L [id number], HCOAG ####[facility] LABIA [id number] [place] [address] [place] Protein S actual/normal Coag (PPP) [Relative time] 91 % Normal 59-152 [facility] Comment on above: Order Comment: Speci men Type: BLOOD SPECIMENOrdering Facility: [facility] Address: [address] [place] [address] Performed By: #### L [id number], HCOAG ####[facility] [id number] [place] [address] [place] PT Coag (Bld) [Time] 12.8 s Normal 11.6-14.4 [facility] Comment on above: Order Comment: Speci men Type: BLOOD SPECIMENOrdering Facility: [facility] Address: [address] [place] [address] Performed By: #### L [id number], HCOAG ####[facility] LABIA [id number] [place] [address] [place] Thrombin time Coag (PPP) [Time] 17.7 seconds Normal <18.6 [facility] Comment on above: Order Comment: Speci men Type: BLOOD SPECIMENOrdering Facility: [facility] Address: [address] [place] [address] Performed By: #### L [id number], HCOAG ####[facility] LABIA [id number] [place] [address] [place] HYPERCOAG PANEL INTERPon INTERPRETATION (HYPERCOAG) Normal [facility] Comment on above: Order Comment: Speccynthia chavarria Type: BLOOD SPECIMENOrdering Facility: [facility] Address: [address] [place] [address] Result Comment: Roshan ntsyl normal - see [...] negative for the c.*97G>A variant (legacy name 85543B>A) in the 3' untranslated region of the Factor II (F2) prothrombin gene. This result is not associated with an increased risk of thromboembolic disease. Please refer to the interpretation provided with the PT Gene Mutation result for further diagnostic and prognostic information. Please correlate these laboratory results with clinical findings and medication history. Performed By: #### L [id number], HCOAG ####[facility] LABCLIA [id number] [place] [address] [place] Pathologist name Reviewed by Bethany Tovar M.D., Ph.D Normal [facility] Comment on above: Order Comment: Crow chavarria Type: BLOOD SPECIMENOrdering Facility: [facility] Address: [address] [place] [address] Performed By: #### L [id number], HCOAG ####[facility] LABCLIA [id number] [address] OF [facility] PROTHROMBIN GENE PCRon 03-15 PROTHROMBIN GENE MUTATION Normal [facility] Comment on above: Order Comment: Speci men Type: BLOOD SPECIMENOrdering Facility: [facility] Address: [address] [place] [address] Result Comment: Prot hrombin Gene Mutation Laboratory Accession Number: [id number] Result: NORMAL Interpretation: The DNA sample is negative for the c.*97G>A variant (legacy name 62113H>A) in the 3' untranslated region of the Factor II (F2) gene. This result is not associated with an increased risk of thromboembolic disease. Thromboembolic disease is a multifactorial disorder and other causes are not excluded by this result. Methodology: Isolated Genomic DNA from the patient's blood specimen is evaluated for the c*97G>A (g.84653627) variant of the F2 gene [RefSeq NM_000506.53;GRCh38/hg38] by multiplex polymerase chain reaction (PCR) followed by melting curve analysis. Limitations: This assay is designed to detect the c.*97G>A (54379L>A) variant in the F2 gene. Uncommon variants or single nucleotide polymorphisms may affect binding of probes and may rarely result in false negative, false positive or indeterminate results. This assay does not detect other disease-associated rare variants in F2 or other causes of thromboembolic disease. Disclaimer: This test was developed and its performance characteristics determined by [facility]'s Pathology and Laboratory Medicine Department. It has not been cleared or approved by the FDA. [facility]'s Pathology and Laboratory Medicine Department is regulated under CLIA as certified to perform high-complexity testing. This test is used for clinical purposes. It should not be regarded as investigational or for research. Test performed at [facility], [address] [place] [address]. CLIA Number: [id number] References: 1) Inheritied Thrombophilias in . ACOG Practice Bulletin. No. 197. [place] [employer] Gynec[employer]. Obsete Gynecol 2018;132:e18-34. 2) Jyothi SR, Dariana FR, Guy PH, and Romina RM. A common genetic variation in the 3'-untranslated region of the prothrombin gene is associated with elevated plasma prothrombin levels and an increase in venous thrombosis. Blood 88:3698-703, 1995. 3) Jaun Jose Campos, Jake V, Hussain C, Jaymie Barboza. Prothrombin 36865Z>T: 16 new cases, association with the 87840H>G polymorphism, and literature review. J Thromb Haemost. 2009;9:1585-7. Interpretation performed at remote location ([facility] [place]) by Talia Hsu, PhD Performed By: #### P TGEN ####[facility] [id number] [address] [address] [place] Pulmonary Visit Reporton Pulmonary Visit Report [facility] [place] [id number] [place] [address] OFFICE VISIT Date of Service: 02/09/25 MR#: [id number] Acct: [id number] Name: JENA RAMIREZ Rep #: [id number] : 1955 Provider: Letha Emery NP Age/Sex: 69/F Location[place] [facility] Status: Signed Assessment and Plan Assessment and [...] limb th (more content not included)... Normal [facility] ECHOon 01-21-2025 Echocardiography Echocardiography Report: Transthoracic Echo Pending Sale To [facility] Date of service: 01/21/2025 10:25:09 AM COMMUNICATIONS MANAGER Ordering physician: SHANITA GREEN Indication: Shortness of Breath Technologist: Albania Hammonds [facility] Interpreting physician: Rito Lawson MD PATIENT: Name: [...] * * * Final * * * [employer] Image : [id number] amicsSISUID Normal [facility] D/C Summary- SPon 01-18-2025 D/C Summary- SP [facility] Speech Pathology [facility] [address] [place] [address] / REHABILITATION SERVICES DISCHARGE SUMMARY MR#: [id number] Acct: [id number] Name: JENA RAMIREZ Rep #: [id number] : 1955 69 From: Yossi Robison M.A., [facility]S LP Referring Dr.: Dr. Rito Camp MD Status: R EG RCR Insurance: [facility] SELF PAY INSURANCE ST Discharge Summary Discharged: Discharge: Jena Ramirez is discharged from [facility] as of January 18, 2025. She [...] Dr. Rito Camp MD TAYLOR Signed Normal [facility] CNOVon 01-05-2025 CNOV Office Visit (FAMPWS ) DIONY RAMIREZ ([id number]) 1955 F Date Time Provider Department 01/05/25 10:00 AM [facility] During your visit today, we recorded the [...] Undergoing annual monitoring for pulmonary nodules by dope mixer. - Recent lung scan performed at the [...] OF 2/3 (more content not included)... Normal [facility] XR FOOT 3V AP/LAT/OBL RTon 0 - [...] No radiographic evidence of acute osseous injury Telephone Messenger: PSCB Transcribe Date/Time: Jan 05 2025 10:54A Dictated by : KATIE WATERS MD This examination was interpreted and the report reviewed and electronically signed by: KATIE WATERS MD on Jan 05 2025 10:55AM EST [id number] Normal [facility] XR Foot - right AP and Later al and obliqueon 01-05-2025 IMPRESSION: No radiographic evidence of acute osseous injury Telephone Messenger: [facility] Transcribe Date/Time: Jan 05 2025 10:54A Dictated [...] the interphalangeal joints. DIVISION OF RADIOLOGY Provider, [facility] - 01/05/2025 * * *Final Report* * [...] No radiographic evidence of acute osseous injury Telephone Messenger: [facility] Transcribe Date/Time: Jan 05 2025 10:54A Dictated by : KATIE WATERS MD This examination was interpreted and the report reviewed and electronically signed by: KATIE WATERS MD on Jan 05 2025 10:55AM EST [facility] Radiology Study observation (narrative) Carlos Burks XR Foot - right AP and Later al and obliqueOrdered By: [facility] Provider on 01-05-2025 [facility] Low Dose CT Lung Screeningon 01-01-[address] Lung Screening [facility] Imaging Services [address] [place], [place] [address] Low Dose CT Lung Screening MR#: [id number] Acct: [id number] Name: JENA RAMIREZ Rep #: [id number] : 1955 F 69 From: Monico Lopez MD PCP: Dr. Rito Camp MD Status: REG CLI Study: Low Dose CT Lung Screening Date of Exam: 01/01 Exam# [id number] Ordering Dr: Sierra Dee HOLTER TECHNICIAN HOLTER TECHNICIAN-C PROCEDURE: LOW DOSE CT LUNG SCREENING 01/01/2025 REASON FOR EXAM: SMOKER QUIT 2010 TECHNIQUE: Low Dose CT Lung screening without contrast. Coronal and Sagittal reconstruction series were provided. One or more dose reduction techniques were used (e.g., Automated exposure control, adjustment of the mA and/or kV according to patient size, use of iterative reconstruction technique). REFERENCE LINK: [facility] Lung-RADS RADIATION DOSE SUMMARY: CTDlvol: 2.0 mGy [...] artery calcification (CAC) is present Reading Location: [facility] CC: TRACI Dee; Dr. Rito Camp MD Telephone Messenger: Signed Normal [facility] BD DXA - AXIAL SKELETONon BD [...] years, Gender: Female SCANNER INFORMATION: DXA Model: [facility] - [employer] C 11847 Date Scanned: 12/28/2024 9:19 AM CLINICAL HISTORY: [...] FOR MORE INFORMATION ABOUT DIAGNOSIS AND TREATMENT: [facility] Center for Osteoporosis and Metabolic Bone Disease:? www.ccf.org/arthritis /osteo National Osteoporosis Foundation:? www.nof.org International Society of Clinical Densitometry www.iscd.org Telephone Messenger: LEONARDO Transcribe Date/Time: Dec 28 2024 10:04A Dictated by : KATIE WATERS MD This examination was interpreted and the report reviewed and electronically signed by: KATIE WATERS MD on Dec 28 2024 10:06AM EST [id number] N -3.1 Normal [facility] BD DXA TRABECLR BONE SCORE ( [...] years, Gender: Female SCANNER INFORMATION: DXA Model: [employer] [place] - [employer] C 64770 Date Scanned: 12/28/2024 9:19 AM CLINICAL HISTORY: [...] FOR MORE INFORMATION ABOUT DIAGNOSIS AND TREATMENT: [facility] Center for Osteoporosis and Metabolic Bone Disease:? www.ccf.org/arthritis /osteo National Osteoporosis Foundation:? www.nof.org International Society of Clinical Densitometry www.iscd.org Telephone Messenger: LEONARDO Transcribe Date/Time: Dec 28 2024 10:04A Dictated by : KATIE WATERS MD This examination was interpreted and the report reviewed and electronically signed by: KATIE WATERS MD on Dec 28 2024 10:06AM EST [id number] N -3.1 Normal [facility] DXA Femur [T-score] Bone nadya hernandez 12-28-2024 * * *Final Report* * * DATE OF EXAM: Dec 28 2024 9:19AM [facility] 0801 - BD DXA TRABECLR BONE SCORE (TBS) / PROCEDURE REASON: Osteoporosis, unspecified osteoporosis type, unspecified pathological fracture p * * * * Physician Interpretation * * * * EXAMINATION: DXA BONE DENSITOMETRY BD DXA - AXIAL SKELETON, BD DXA TRABECLR BONE SCORE (TBS) PATIENT DEMOGRAPHICS: Age: 69 years, Gender: Female SCANNER INFORMATION: DXA Model: [employer] [place] - [employer] C 96925 Date Scanned: 12/28/2024 9:19 AM CLINICAL HISTORY: [...] Normal (> 1.310) DIVISION OF RADIOLOGY Provider, [facility] - 12/28/2024 * * *Final Report* * * DATE OF EXAM: Dec 28 2024 9:19AM [facility] 0801 - BD DXA TRABECLR BONE SCORE (TBS) / PROCEDURE REASON: Osteoporosis, unspecified osteoporosis type, unspecified pathological fracture p * * * * Physician Interpretation * * * * EXAMINATION: DXA BONE DENSITOMETRY BD DXA - AXIAL SKELETON, BD DXA TRABECLR BONE SCORE (TBS) PATIENT DEMOGRAPHICS: Age: 69 years, Gender: Female SCANNER INFORMATION: DXA Model: [employer] [place] - [employer] C 01778 Date Scanned: 12/28/2024 9:19 AM CLINICAL HISTORY: [...] FOR MORE INFORMATION ABOUT DIAGNOSIS AND TREATMENT: [facility] Center for Osteoporosis and Metabolic Bone Disease:? www.ccf.org/arthritis /osteo National Osteoporosis Foundation:? www.nof.org International Society of Clinical Densitometry www.iscd.org Telephone Messenger: LEONARDO Transcribe Date/Time: Dec 28 2024 10:04A Dictated by : KATIE WATERS MD This examination was interpreted and the report reviewed and electronically signed by: KATIE WATERS MD on Dec 28 2024 10:06AM EST [facility] DXA Skeletal system.axial Vi ews for [...] years, Gender: Female SCANNER INFORMATION: DXA Model: [employer] [place] - [employer] C 81425 Date Scanned: 12/28/2024 9:19 AM CLINICAL HISTORY: [...] Normal (> 1.310) DIVISION OF RADIOLOGY Provider, [facility] - 12/28/2024 * * *Final Report* * [...] years, Gender: Female SCANNER INFORMATION: DXA Model: [employer] [place] - [employer] C 29920 Date Scanned: 12/28/2024 9:19 AM CLINICAL HISTORY: [...] FOR MORE INFORMATION ABOUT DIAGNOSIS AND TREATMENT: [facility] Center for Osteoporosis and Metabolic Bone Disease:? www.ccf.org/arthritis /osteo National Osteoporosis Foundation:? www.nof.org International Society of Clinical Densitometry www.iscd.org Telephone Messenger: LEONARDO Transcribe Date/Time: Dec 28 2024 10:04A Dictated by : KATIE WATERS MD This examination was interpreted and the report reviewed and electronically signed by: KATIE WATERS MD on Dec 28 2024 10:06AM EST [facility] No Panel InformationOrdered By: [facility] Provider on 12-28-2024 LOWEST T-SCORE -3.1 [facility] No Panel Informationon 12-28 IMPRESSION: THE LOWEST [...] FOR MORE INFORMATION ABOUT DIAGNOSIS AND TREATMENT: [facility] Center for Osteoporosis and Metabolic Bone Disease:? www.ccf.org/arthritis /osteo National Osteoporosis Foundation:? www.nof.org International Society of Clinical Densitometry www.iscd.org Telephone Messenger: LEONARDO Transcribe Date/Time: Dec 28 2024 10:04A Dictated by : KATIE WATERS MD This examination was interpreted and the report reviewed and electronically signed by: KATIE WATERS MD on Dec 28 2024 10:06AM [facility] DIVISION OF RADIOLOGY Radiology Study observation (narrative) Carlos nguyen [facility] Gastroenterology Visit Repor ton 12-17-2024 Gastroenterology Visit Report [facility] Gastroenterology [address] [place] [address] OFFICE VISIT Date of Service: 12/17/24 MR#: [id number] Acct: [id number] Name: JENA RAMIREZ Rep #: [id number] : 1955 Provider: TRACI neil Age/Sex: 69/F Location: [facility] Status: Signed Intake Vital Signs 09/15/24 08:02 Height 4 ft 9 in Weight: 92 lb BMI 19.9 BP 127/80 H Blood Pressure Location Lt brachial Position Sitting Respiration 20 H Pulse 85 Pulse Source Monitor Temp 97.0 F L Pulse Oximetry (%) 95 Oxygen Delivery Method room air Intake Visit Reasons: Gastroesophageal reflux disease (GERD) Chief Complaint: dysphagia Moving Consultant Required: No Is patient in pain?: No [...] #5 tabs 12/17/24 12/17/24 Rx peg 3350-sod sulf,rmkpl-jut-ogi See Rx Instructions PO .COMPLEX #2 12/17/24 12/17/24 Rx 178.7-7.3-0.5-1.12-0. 9 gram oral mL soln (Suflave) Have you fallen in the past year?: No Nurse's Note: Chokes easy. Had a swallow test here in October. [facility] Medical History Vitamin D toxicity Uterine [...] intake. (more content not included)... [facility] 12-02-2024 [facility] Telephone (FAMPWS) DIONY RAMIREZ ([id number]) 1955 F Date Time Provider Department 12/02/24 [facility] your visit today, we recorded the [...] [R89.2] 06 (more content not included)... [facility] (STEPHANIE) DIONY RAMIREZ ([id number]) 1955 F Date Time Provider Department 12/01/24 [facility] During your visit today, we recorded the following information about you: Kasey Becker LPN 12/01/2024 1:48 PM Signed Patient calling said she had swallowing study done at [facility] on 11/24/2024. She is upset that PCP has not gotten copy of the results yet. She called [facility] med recs dept yesterday and was told being faxed as she was talking to the lady. She talking about bringing her copy to the office and have copy made for PCP. She was told needs Gastro consult, she was hoping to stay with [facility] if PCP wants to give the referral. Please advise Alex Brown APRN.MERCHANDISE EXAMINER 12/01/2024 2:49 PM Signed Please let patient [...] [R09.89] Order(s):CONSULT TO GASTROENTEROLOGY [9010] Order #: [id number]: 1 FUTURE Prescriptions as of 12/18/2024 - [...] (COVI*01/27/2021 M (more content not included)... Normal [facility] Modified Barium Swallow Stud [facility] 11-24-2024 Modified Barium Swallow Study [facility] Speech Pathology [address] [place] [address] Modified Barium Swallow Study MR#: [id number] Acct: [id number] Name: JENA RAMIREZ Rep #: [id number] : 1955 69 From: Krysta Tatum M.A., [facility]COIL BUILDER Modified Barium Swallow Patient Information Study Date: 11/24/24 Study Time: 12:45 Direct Billable Minutes: 70 Total Minutes procedure reportin Diagnosis: Dysphagia R13.10 Referring Physician: Rito Camp Reason for Referral: assess swallow function, assess risk for aspiration, and determine recommendations for least restrictive diet textures and compensatory strategies to facilitate safe po intake. Medical History: Patient recently seen at [facility] for outpatient swallowing evaluation 10/20/2024 to address [...] and ph (more content not included)... Normal [facility] DION[facility] RAMIRE[facility] ([id number]) 1955 F Date Time Provider Department 11/04/24 [...] and faxed to Dr. Montilla's office at [phone]. Called pt and notified that she should [...] Order(s):CONSULT TO CYNDEE MGT [19991208] Order #: [id number]: 1 FUTURE Prescriptions as of 11/04/2024 - [...] [N32.81] 09/01 (more content not included)... Normal [facility] CNPNon 10-26-2024 CNPN Telephone (ADMWST) DIONY RAMIREZ ([id number]) 1955 F Date Time Provider Department 10/26/24 RITO CAMP ADMWST During your visit today, we recorded the following information about you: Truman Campos 10/26/2024 1:21 PM Signed Patient is requesting her HIP xray from 08/03/24 be placed on a disc. Thank you. Elana Waller, PSS 10/26/2024 4:28 PM Signed CD [facility] RADIOLOGY Pt is aware Allergies As of [...] [M25.552] 09/29/2024 (more content not included)... Normal [facility] SP/HP.SP.Soheila 10-20-2024 SP/HP.SP.EV [facility] Speech Pathology [facility] [address] [place] [address] / REHABILITATION SERVICES INITIAL EVALUATION MR#: [id number] Acct: [id number] Name: JENA RAMIREZ Rep #: [id number] : 1955 69 From: Yossi Robison M.A., [facility]S Referring Dr.: Dr. Rito Camp MD Status: R EG RCR Insurance: [employer] MEDICARE [facility] [employer] SELF PAY INSURANCE Visit History Visit Info Date of Eval: 10/20/24 Visit: 1 Relief Pilot: KENZEI History Attending Doctor: Referring Doctor: Reason for [...] current prescribed condition?: No Personal Preferred language: Burkinan Patient Allergies Allergies Allergies: Allergies Fish Containing [...] Yes Treatmen (more content not included)... Normal [facility] CNTHERAPYon 10-13-2024 CNTHERAPY OT/PT/Speech Visit (PTWS) BASIMDIONY SIMS ([id number]) 1955 F Date Time Provider Department 10/13/24 10:30 AM MARY ANN OSCAR PTWS Date Time Provider Department [place] 10/13/2024 10:30 AM [id number] ANN OSCAR PTWS [place] Reason for Visit: PT Discharge [752] [...] Tab Take one(1) tablet two(2) times daily. Auto Service Instructor: Addendum Therapy (PT/OT/Speech/Resp) ID: [id number] 10/13/2024 10:48 AM Author: MARY ANN OSCAR Signed by MARY ANN OSCAR PT on 10/13/2024 at 10:48 AM * * * This document replaces document [id number] * * * Document text: Program_ID:[id number] Access Code: [email or web address] URL: [email or web address] Differential.[email or web address]/ Date: 10-13-2024 Prepared By: Mary Ann Oscar [...] 4 sets - 10 reps ----- Normal [facility] THERAPY NTon 10-13-2024 THERAPY NT HNO ID: [id number] Author: MARY ANN OSCAR PT Service: ? Author Type: Physical Therapist Type: Therapy (PT/OT/Speech/Resp) Filed: 10/13/2024 10:48 Note Text: Program_ID:[id number] Access Code: [email or web address] URL: [email or web address] Differential.[email or web address]/ Date: 10-13-2024 Prepared By: Mary Ann Oscar [...] - 4 sets - 10 reps Normal [facility] CNOVon 10-01-2024 CN [facility] DIONY RAMIREZ ([id number]) 1955 F Date Time Provider Department 10/01/24 10:00 AM [facility] During your visit today, we recorded the following information about you: Pulse Blood pressure Weight Height 83/minute 138/77 41.5 kg 1.422 m Rito Camp MD 10/01/2024 8:22 PM Signed Ibanswapnli Ortiz Ramirez is a 69 year old [...] - General (Family Medicine) Suleman Gustafson as Systems Librarian Alex Brown APRN.LUIS FELIPE as Room Service Food Server (Family Medicine) Shanita Green PA-C as Room Service Food Server (Family Medicine) Dr. Epstein: Pin management Dr. [...] Elevated blood sugar 01/27/2021 Emphysema of lung ([facility] 03/18/2015 Essential hypertension, benign 02/21/2015 Ex-smoker 01/27/2021 [...] by kala (more content not included)... Normal [facility] [id number] 09-29-2024 [id number] HNO ID: [id number] Author: MARY ANN OSCAR, PT Service: ? Author Type: Physical Therapist Type: [id number] Filed: 09/29/2024 12:43 Note Text: [facility] Rehabilitation and Sports Therapy Physical Therapy Plan of Care Certification Patient Name: Diony Ramirez : 1955 [facility] #: [id number] Date: 09/29/2024 To: Shanita Green PA-C From Therapist: Mary Ann Oscar, PT RE: Patient Certification/ Recertification Your review, approval and electronic signature are required in order to comply with Payor: [facility] [employer] / Plan: [employer] MEDICARE ADVANTAGE HMO / [...] Planned: 6 Planned Treatment Interventions: Therapeutic exercise (57813), Neuromuscular re-education (07624), Manual therapy (17107), Therapeutic activities (19124), Self-skilled nursing management (96006), Gait Training (02842) PLAN FOR NEXT VISIT: Pt. has $35 [...] reviewed the treatment plan for Diony Ramirez, [facility]# [id number] for the period of 09/29/24 -- 11/10/24, established on 09/29/2024. Signature certifies the need for therapy services. Normal [facility] CNTHERAPYon 09-29-2024 CNTHERAPY OT/PT/Speech Visit (PTWS) DIONY RAMIREZ ([id number]) 1955 F Date Time Provider Department 09/29/24 12:00 PM MARY ANN OSCAR PTWS Date Time Provider Department Center 09/29/2024 12:00 PM [id number] ANN OSCAR PTRAMIREZ [employer] Reason for Visit: PT Eval [747] Primary [...] Tab Take one(1) tablet two(2) times daily. Auto Service Instructor: Therapy (PT/OT/Speech/Resp) ID: [id number] 09/29/2024 12:26 PM Author: MARY ANN OSCAR Signed by MARY ANN OSCAR PT on 09/29/2024 at 12:26 PM Document text: Program_ID:[id number] Access Code: [email or web address] URL: [email or web address]/ Date: 09-29-2024 Prepared By: Mary Ann Oscar [...] 2 sets - 5 reps ----- Normal [facility] THERAPY NTon 09-29-2024 THERAPY NT HNO ID: [id number] Author: AMRY ANN OSCAR, KIMANI Service: ? Author Type: Physical Therapist Type: Therapy (PT/OT/Speech/Resp) Filed: 09/29/2024 12:26 Note Text: Program_ID:[id number] Access Code: [email or web address] URL: [email or web address] Differential.[email or web address]/ Date: 09-29-2024 Prepared By: Mary Ann Oscar [...] - 2 sets - 5 reps Normal [facility] 25([place])D3 [facility] 20[facility] 25-hydroxyvitamin D3 [Mass/Vol] 57.6 ng/mL Normal 31.0-80.0 [facility] Comment on above: Order Comment: Speci men Type: BLOOD SPECIMENOrdering Facility: [facility] Address: [address] [place] [address] Result Comment: Clas sification of 25 [place] Vitamin D status: Deficiency/Insufficiency: < or = 30 ng/ml. Sufficiency/Optimal Levels: 31-80 ng/mL Toxicity: > 100 ng/mL. Test performed by chemiluminescent immunoassay. Performed By: #### 1 989-3 ####[facility] LABCLIA [id number] [place] [address] [place] CBC W Auto Differential pane l (Bld)on 09-24-2024 Basophils (Bld) [#/Vol] 0.09 10*3/uL Normal <0.11 [facility] Comment on above: Order Comment: Speci men Type: BLOOD SPECIMENOrdering Facility: [facility] Address: [address] [place] [address] Performed By: #### 5 7021-8 ####[facility] LABCLIA [id number] [place] [address] [place] Basophils/100 WBC (Bld) 1.4 % Normal [facility] Comment on above: Order Comment: Speci men Type: BLOOD SPECIMENOrdering Facility: [facility] Address: [address] [place] [address] Performed By: #### 5 7021-8 ####[facility] LABCLIA [id number] [place] [address] [place] Differential cell count method Nom (Bld) Auto Normal [facility] Comment on above: Order Comment: Speci men Type: BLOOD SPECIMENOrdering Facility: [facility] Address: [address] [place] [address] Performed By: #### 5 7021-8 ####[facility] LABCLIA [id number] [place] [address] [place] Eosinophils (Bld) [#/Vol] 0.21 10*3/uL Normal <0.46 [facility] Comment on above: Order Comment: Speci men Type: BLOOD SPECIMENOrdering Facility: [facility] Address: [address] [place] [address] Performed By: #### 5 7021-8 ####[facility] LABCLIA [id number] [place] [address] [place] Eosinophils/100 WBC (Bld) 3.2 % Normal [facility] Comment on above: Order Comment: Speci men Type: BLOOD SPECIMENOrdering Facility: [facility] Address: [address] [place] [address] Performed By: #### 5 7021-8 ####[facility] LABCLIA [id number] [place] [address] [place] Erythrocyte distribution width (RBC) [Ratio] 12.8 % Normal 11.5-15.0 [facility] Comment on above: Order Comment: Speci men Type: BLOOD SPECIMENOrdering Facility: [facility] Address: [address] [place] [address] Performed By: #### 5 7021-8 ####[facility] LABCLIA [id number] [place] [address] [place] Hematocrit (Bld) [Volume fraction] 45.3 % Normal 36.0-46.0 [facility] Comment on above: Order Comment: Speci men Type: BLOOD SPECIMENOrdering Facility: [facility] Address: [address] [place] [address] Performed By: #### 5 7021-8 ####[facility] LABCLIA [id number] [place] [address] [place] Hemoglobin (Bld) [Mass/Vol] 14.7 g/dL Normal 11.5-15.5 [facility] Comment on above: Order Comment: Speci men Type: BLOOD SPECIMENOrdering Facility: [facility] Address: [address] [place] [address] Performed By: #### 5 7021-8 ####[facility] LABCLIA [id number] [place] [address] [place] Immature granulocytes (Bld) [#/Vol] 10*3/uL Normal <0.10 [facility] Comment on above: Order Comment: Speci men Type: BLOOD SPECIMENOrdering Facility: [facility] Address: [address] [place] [address] Performed By: #### 5 7021-8 ####[facility] LABCLIA [id number] [place] [address] [place] Immature granulocytes/100 WBC (Bld) 0.3 % Normal [facility] Comment on above: Order Comment: Speci men Type: BLOOD SPECIMENOrdering Facility: [facility] Address: [address] [place] [address] Performed By: #### 5 7021-8 ####[facility] LABCLIA [id number] [place] [address] [place] Lymphocytes (Bld) [#/Vol] 1.58 10*3/uL Normal 1.00-4.00 [facility] Comment on above: Order Comment: Speci men Type: BLOOD SPECIMENOrdering Facility: [facility] Address: [address] [place] [address] Performed By: #### 5 7021-8 ####[facility] LABCLIA [id number] [place] [address] [place] Lymphocytes/100 WBC (Bld) 24.1 % Normal [facility] Comment on above: Order Comment: Speci men Type: BLOOD SPECIMENOrdering Facility: [facility] Address: [address] [place] [address] Performed By: #### 5 7021-8 ####[facility] LABCLIA [id number] [place] [address] [place] MCH (RBC) [Entitic mass] 33.1 pg Normal 26.0-34.0 [facility] Comment on above: Order Comment: Speci men Type: BLOOD SPECIMENOrdering Facility: [facility] Address: [address] [place] [address] Performed By: #### 5 7021-8 ####[facility] LABCLIA [id number] [place] [address] [place] MCHC (RBC) [Mass/Vol] 32.5 g/dL Normal 30.5-36.0 [facility] Comment on above: Order Comment: Speci men Type: BLOOD SPECIMENOrdering Facility: [facility] Address: [address] [place] [address] Performed By: #### 5 7021-8 ####[facility] LABIA [id number] [place] [address] [place] MCV (RBC) [Entitic vol] 102.0 fL High 80.0-100.0 [facility] Comment on above: Order Comment: Speci men Type: BLOOD SPECIMENOrdering Facility: [facility] Address: [address] [place] [address] Performed By: #### 5 7021-8 ####[facility] LABIA [id number] [place] [address] [place] Monocytes (Bld) [#/Vol] 0.62 10*3/uL Normal <0.87 [facility] Comment on above: Order Comment: Speci men Type: BLOOD SPECIMENOrdering Facility: [facility] Address: [address] [place] [address] Performed By: #### 5 7021-8 ####[facility] LABIA [id number] [place] [address] [place] Monocytes/100 WBC (Bld) 9.5 % Normal [facility] Comment on above: Order Comment: Speci men Type: BLOOD SPECIMENOrdering Facility: [facility] Address: [address] [place] [address] Performed By: #### 5 7021-8 ####[facility] LABCLIA [id number] [place] [address] [place] Neutrophils (Bld) [#/Vol] 4.03 10*3/uL Normal 1.45-7.50 [facility] Comment on above: Order Comment: Speci men Type: BLOOD SPECIMENOrdering Facility: [facility] Address: [address] [place] [address] Performed By: #### 5 7021-8 ####[facility] LABCLIA [id number] [place] [address] [place] Neutrophils/100 WBC (Bld) 61.5 % Normal [facility] Comment on above: Order Comment: Speci men Type: BLOOD SPECIMENOrdering Facility: [facility] Address: [address] [place] [address] Performed By: #### 5 7021-8 ####[facility] LABCLIA [id number] [place] [address] [place] Nucleated RBC (Bld) [#/Vol] 10*3/uL Normal <0.01 [facility] Comment on above: Order Comment: Speci men Type: BLOOD SPECIMENOrdering Facility: [facility] Address: [address] [place] [address] Performed By: #### 5 7021-8 ####[facility] LABIA [id number] [place] [address] [place] Nucleated RBC/100 WBC (Bld) [Ratio] 0.0 /100 WBC Normal [facility] Comment on above: Order Comment: Speci men Type: BLOOD SPECIMENOrdering Facility: [facility] Address: [address] [place] [address] Performed By: #### 5 7021-8 ####[facility] LABIA [id number] [place] [address] [place] Platelet mean volume (Bld) [Entitic vol] 9.6 fL Normal 9.0-12.7 [facility] Comment on above: Order Comment: Speci men Type: BLOOD SPECIMENOrdering Facility: [facility] Address: [address] [place] [address] Performed By: #### 5 7021-8 ####[facility] LABCLIA [id number] [place] [address] [place] Platelets (Bld) [#/Vol] 293 10*3/uL Normal 150-400 [facility] Comment on above: Order Comment: Speci men Type: BLOOD SPECIMENOrdering Facility: [facility] Address: [address] [place] [address] Performed By: #### 5 7021-8 ####[facility] LABCLIA [id number] [address] [address] [place] RBC (Bld) [#/Vol] 4.44 10*6/uL Normal 3.90-5.20 [facility] Comment on above: Order Comment: Speci men Type: BLOOD SPECIMENOrdering Facility: [facility] Address: [address] [place] [address] Performed By: #### 5 7021-8 ####[facility] LABCLIA [id number] [place] [address] [place] WBC (Bld) [#/Vol] 6.55 10*3/uL Normal 3.70-11.00 [facility] Comment on above: Order Comment: Speci men Type: BLOOD SPECIMENOrdering Facility: [facility] Address: [address] [place] [address] Performed By: #### 5 7021-8 ####[facility] LABIA [id number] [place] [address] [place] Comprehensive metabolic 2000 panelon 09-24-2024 Albumin [Mass/Vol] 4.1 g/dL Normal 3.9-4.9 [facility] Comment on above: Order Comment: Speci men Type: BLOOD SPECIMENOrdering Facility: [facility] Address: [address] [place] [address] Performed By: #### 2 4323-8, 2132-9 ####[facility] LABCLIA [id number] [place] [address] [place] ALP [Catalytic activity/Vol] 66 U/L Normal 34-123 [facility] Comment on above: Order Comment: Speci men Type: BLOOD SPECIMENOrdering Facility: [facility] Address: [address] [place] [id number] Performed By: #### 2 43211-07, 2132-05 ####[facility] LABCLIA [id number] [address] [address] [place] ALT [Catalytic activity/Vol] 15 U/L Normal 7-38 [facility] Comment on above: Order Comment: Speci men Type: BLOOD SPECIMENOrdering Facility: [facility] Address: [address] [id number] Performed By: #### 2 4323-04, 2132-05 ####[facility] LABCLIA [id number] [place] [address] [place] Anion gap [Moles/Vol] 10 mmol/L Normal 8-15 [facility] Comment on above: Order Comment: Speci men Type: BLOOD SPECIMENOrdering Facility: [facility] Address: [address] [place] [address] Performed By: #### 2 4323-04, 2132-05 ####[facility] LABCLIA [id number] [place] [address] [place] AST [Catalytic activity/Vol] 23 U/L Normal 13-35 [facility] Comment on above: Order Comment: Speci men Type: BLOOD SPECIMENOrdering Facility: [facility] Address: [address] [id number] Performed By: #### 2 4323-04, 2132-05 ####[facility] LABCLIA [id number] [place] [id number] [place] Bilirubin [Mass/Vol] 0.5 mg/dL Normal 0.2-1.3 [facility] Comment on above: Order Comment: Speci men Type: BLOOD SPECIMENOrdering Facility: [facility] Address: [address] [place], [place] [address] Performed By: #### 2 4323-04, 2132-05 ####[facility] LABCLIA [id number] [facility] [address] [address] [place] Calcium [Mass/Vol] 8.8 mg/dL Normal 8.5-10.2 [facility] Comment on above: Order Comment: Speci men Type: BLOOD SPECIMENOrdering Facility: [facility] Address: [address] [place], [place] [phone] Performed By: #### 2 4323-04, 2132-05 ####[facility] LABCLIA [id number] [facility] [place] [id number] [place] Chloride [Moles/Vol] 101 mmol/L Normal 98-107 [facility] Comment on above: Order Comment: Speci men Type: BLOOD SPECIMENOrdering Facility: [facility] Address: [address] [place] [address] Performed By: #### 2 4323-04, 2132-05 ####[facility] LABCLIA [id number] [place] [address] [place] CO2 [Moles/Vol] 26 mmol/L Normal 22-30 [facility] Comment on above: Order Comment: Speci men Type: BLOOD SPECIMENOrdering Facility: [facility] Address: [address] [place], [place] [phone] Performed By: #### 2 4323-04, 2132-05 ####[facility] LABCLIA [id number] [place] [id number] [place] Creatinine [Mass/Vol] 0.67 mg/dL Normal 0.58-0.96 [facility] Comment on above: Order Comment: Speci men Type: BLOOD SPECIMENOrdering Facility: [facility] Address: [address] [place], [place] [phone] Performed By: #### 2 43211-07, 2132-05 ####[facility] LABCLIA [id number] [place] [id number] [place] Creatinine and Glomerular filtration rate.predicted panel (S/P/Bld) 95 mL/min/1.73m??? Normal >=60 [facility] Comment on above: Order Comment: Crow chavarria Type: BLOOD SPECIMENOrdering Facility: [facility] Address: [address] [place] [address] Result Comment: Marlin mated Glomerular Filtration Rate [...] GFR. Performed By: #### 2 4322-8, 2132-05 ####[facility] LABCLIA [id number] [place] [address] [place] Glucose [Mass/Vol] 90 mg/dL Normal 74-99 [facility] Comment on above: Order Comment: Crow chavarria Type: BLOOD SPECIMENOrdering Facility: [facility] Address: [address] [place] [address] Result Comment: The [place] Diabetes Association (ADA) provides guidance for cutoff [...] Standards of Medical Care in Diabetes 2016, [place] [employer]. Diabetes Care. 2016.39(Suppl 1). Performed By: #### 2 4323-8, 2132-05 ####[facility] LABCLIA [id number] [place] [id number] [place] Potassium [Moles/Vol] 4.1 mmol/L Normal 3.7-5.1 [facility] Comment on above: Order Comment: Speci men Type: BLOOD SPECIMENOrdering Facility: [facility] Address: [address] [phone] Performed By: #### 2 4323-04, 2132-05 ####[facility] LABCLIA [id number] [address] [address] [place] Protein [Mass/Vol] 6.5 g/dL Normal 6.3-8.0 [facility] Comment on above: Order Comment: Speci men Type: BLOOD SPECIMENOrdering Facility: [facility] Address: [address] [place], [place] [address] Performed By: #### 2 4323-04, 2132-05 ####[facility] LABCLIA [id number] [place] [address] [place] Sodium [Moles/Vol] 137 mmol/L Normal 136-144 [facility] Comment on above: Order Comment: Speci men Type: BLOOD SPECIMENOrdering Facility: [facility] Address: [address] [place], [place] [address] Performed By: #### 2 4323-04, 2132-05 ####[facility] LABCLIA [id number] [place] [address] [place] Urea nitrogen [Mass/Vol] 14 mg/dL Normal 7-21 [facility] Comment on above: Order Comment: Speci men Type: BLOOD SPECIMENOrdering Facility: [facility] Address: [address] [place], [place] [address] Performed By: #### 2 4323-04, 2132-05 ####[facility] LABCLIA [id number] [place] [id number] [place] HbA1c (Bld)on 09-24-2024 Average glucose Estimated from glycated hemoglobin (Bld) [Mass/Vol] 94 mg/dL Normal [facility] Comment on above: Order Comment: Speci men Type: BLOOD SPECIMENOrdering Facility: [facility] Address: [address] [place] [address] Result Comment: eAG: (Estimated average glucose) is a calculated value from HgbA1c and is customer success representative of the average blood glucose level in the last 2-3 month period. Performed By: #### 5 5454-3 ####[facility] LABCLIA [id number] [place] [address] [place] HbA1c (Bld) [Mass fraction] 4.9 % Normal 4.3-5.6 [facility] Comment on above: Order Comment: Speci men Type: BLOOD SPECIMENOrdering Facility: [facility] Address: [address] [place] [address] Result Comment: [place] Diabetes Association guidelines indicate that patients with HgbA1c in the range 5.7-6.4% are at increased risk for development of diabetes, and intervention by lifestyle modification may be beneficial. HgbA1c greater or equal to 6.5% is considered diagnostic of diabetes. Performed By: #### 5 5454-3 ####[facility] LABIA [id number] [place] [address] [place] Iron and Iron binding capaci ty panelon 09-24-2024 Iron [Mass/Vol] 96 ug/dL Normal 41-186 [facility] Comment on above: Order Comment: Speci men Type: BLOOD SPECIMENOrdering Facility: [facility] Address: [address] [place] [address] Performed By: #### L IPNF, 60258-3, 6-3, 76793-8 ####[facility] LABCLIA [id number] [place] [id number] [place] Iron binding capacity [Mass/Vol] 391 ug/dL High 232-386 [facility] Comment on above: Order Comment: Speci men Type: BLOOD SPECIMENOrdering Facility: [facility] Address: [address] [place] [address] Performed By: #### L IPNF, 19776-8, 6-3, 99420-9 ####[facility] LABCLIA [id number] [place] [address] [place] Iron/TIBC [Molar ratio] 24.6 % Normal 15.0-57.0 [facility] Comment on above: Order Comment: Speci men Type: BLOOD SPECIMENOrdering Facility: [facility] Address: [address] [place] [address] Performed By: #### L CECILIA, 29039-6, 3015-3, 37542-7 ####[facility] LABCLIA [id number] [place] [address] [place] LIPID PANEL, NONFASTINGon Cholesterol [Mass/Vol] 193 mg/dL Normal <200 [facility] Comment on above: Order Comment: Speci men Type: BLOOD SPECIMENOrdering Facility: [facility] Address: [address] [place] [address] Result Comment: <200 mg/dL, Desirable 200-239 mg/dL, Borderline high >239 mg/dL, High Performed By: #### L CECILIA, , 3015-3, 86239-8 ####[facility] LABCLIA [id number] [place] [address] [place] HDL CHOLESTEROL, NF 99 mg/dL Normal >39 [facility] Comment on above: Order Comment: Speci men Type: BLOOD SPECIMENOrdering Facility: [facility] Address: [address] [place] [address] Result Comment: 40-5 9 mg/dL, Acceptable >59 mg/dL, High: Negative risk factor for coronary heart disease <40 mg/dL, Low: Positive risk factor for coronary heart disease Performed By: #### L CECILIA, , 3015-3, 37141-1 ####[facility] LABCLIA [id number] [place] [id number] [place] LDL CHOLESTEROL, NF 79 mg/dL Normal <100 [facility] Comment on above: Order Comment: Speci men Type: BLOOD SPECIMENOrdering Facility: [facility] Address: [address] [place] [address] Result Comment: <100 mg/dL, Optimal 100-129 mg/dL, Near optimal/above optimal 130-159 mg/dL, Borderline high 160-189 mg/dL, High >189 mg/dL, Very high Secondary prevention optimal LDL Cholesterol levels are recommended to be < 70 mg/dL Performed By: #### L IPMARIA L, , 6-3, 11138-7 ####[facility] LABCLIA [id number] [address] [place] LDL/HDL RATIO, NF 0.80 mg/dL Normal <2.54 [facility] Comment on above: Order Comment: [facility] Type: BLOOD SPECIMENOrdering Facility: [facility] Address: [address] [place] [address] Result Comment: Refe rence: 1. National Cholesterol Education Program ATP III Guideline At-A-Glance Quick Desk Reference: National Heart, Lung, and Blood [place]. National Institutes of Health. 2001: NIH Publication No. 01-3305. 2. An International Atherosclerosis Society position paper: global recommendations for the management of dyslipidemia: executive summary, Atherosclerosis. 2014: 232(2):410-413. Performed By: #### L CECILIA, , 3015-3, 33367-1 ####[facility] LABCLIA [id number] [place] [address] [place] NON HDL CHOL, NF 94 mg/dL Normal <130 [facility] Comment on above: Order Comment: [facility] Type: BLOOD SPECIMENOrdering Facility: [facility] Address: [address] [place] [address] Result Comment: <130 mg/dL, Optimal 130-159 mg/dL, Near optimal/above optimal 160-189 mg/dL, Borderline high 190-219 mg/dL, High >219 mg/dL, Very high Secondary prevention optimal non HDL Cholesterol levels are recommended to be <100 mg/dL Performed By: #### L IPNF, , 3015-3, 23820-4 ####[facility] LABCLIA [id number] [place] [id number] [place] T CHOL/HDL RATIO NF 1.95 mg/dL Normal <5.10 [facility] Comment on above: Order Comment: Speci men Type: BLOOD SPECIMENOrdering Facility: [facility] Address: [address] [place] [address] Performed By: #### L IPNF, , 3015-3, 89382-4 ####[facility] LABCLIA [id number] [place] [address] [place] TRIGLYCERIDES, NF 76 mg/dL Normal <150 [facility] Comment on above: Order Comment: Speci men Type: BLOOD SPECIMENOrdering Facility: [facility] Address: [address] [place] [address] Result Comment: <150 mg/dL, Normal 150-199 mg/dL, Borderline high 200-499 mg/dL, High >499 mg/dL, Very high Performed By: #### L IPNF, , 3, 38388-6 ####[facility] LABCLIA [id number] [place] [address] [place] VLDL CHOLESTEROL, NF 15 mg/dL Normal <30 [facility] Comment on above: Order Comment: Speci men Type: BLOOD SPECIMENOrdering Facility: [facility] Address: [address] [place] [address] Performed By: #### L IPNF, , 3, 66756-5 ####[facility] LABCLIA [id number] [place] [address] [place] Magnesium SerPl-mCncon 09-24 Magnesium [Mass/Vol] 2.2 mg/dL Normal 1.7-2.3 [facility] Comment on above: Order Comment: Speci men Type: BLOOD SPECIMENOrdering Facility: [facility] Address: [address] [place] [address] Performed By: #### L IPNF, 60138-8, 3016-3, 71349-4 ####[facility] LABCLIA [id number] [place] [address] [place] TSH SerPl-aCncon 09-24-2024 TSH Qn 1.160 m[IU]/L Normal 0.270-4.200 [facility] Comment on above: Order Comment: Speci men Type: BLOOD SPECIMENOrdering Facility: [facility] Address: [address] [place] [address] Performed By: #### L IPNF, 07444-8, 3016-3, 77995-5 ####[facility] LABIA [id number] [place] [address] [place] Urinalysis complete panel (U )on 09-24-2024 Bacteria LM.HPF (Urine sed) [#/Area] Negative Normal Negative [facility] Comment on above: Order Comment: Speci men Type: URINE SPECIMENOrdering Facility: [facility] Address: [address] [place] [address] Performed By: #### 2 4356-8 ####[facility] LABIA [id number] [place] [address] [place] Bilirubin Ql (U) Negative Normal Negative [facility] Comment on above: Order Comment: Speci men Type: URINE SPECIMENOrdering Facility: [facility] Address: [address] [place] [address] Performed By: #### 2 4356-8 ####[facility] LABIA [id number] [place] [address] [place] Clarity (Unsp spec) Clear Normal Clear [facility] Comment on above: Order Comment: Speci men Type: URINE SPECIMENOrdering Facility: [facility] Address: [address] [place] [address] Performed By: #### 2 4356-8 ####[facility] LABCLIA [id number] [place] [address] [place] [place] Color (U) Yellow Normal Yellow [facility] Comment on above: Order Comment: Speci men Type: URINE SPECIMENOrdering Facility: [facility] Address: [address] [place] [address] Performed By: #### 2 4356-8 ####[facility] LABCLIA [id number] [place] [address] [place] Epithelial cells LM.HPF (Urine sed) [#/Area] None Seen Normal [facility] Comment on above: Order Comment: Speci men Type: URINE SPECIMENOrdering Facility: [facility] Address: [address] [place] [address] Performed By: #### 2 4356-8 ####[facility] LABCLIA [id number] [address] [place] Glucose Test strip (U) [Mass/Vol] Negative Normal Negative [facility] Comment on above: Order Comment: Speci men Type: URINE SPECIMENOrdering Facility: [facility] Address: [address] [place] [address] Performed By: #### 2 4356-8 ####[facility] LABIA [id number] [place] [address] [place] Hemoglobin Ql (U) Negative Normal Negative [facility] Comment on above: Order Comment: Speci men Type: URINE SPECIMENOrdering Facility: [facility] Address: [address] [place] [address] Performed By: #### 2 4356-8 ####[facility] LABCLIA [id number] [place] [address] [place] Hyaline casts (Urine sed) [#/Area] 0 /[LPF] Normal 0 /LPF [facility] Comment on above: Order Comment: Speci men Type: URINE SPECIMENOrdering Facility: [facility] Address: [address] [place] [address] Performed By: #### 2 4356-8 ####[facility] LABCLIA [id number] [place] [address] [place] Ketones Ql (U) Negative Normal Negative [facility] Comment on above: Order Comment: Speci men Type: URINE SPECIMENOrdering Facility: [facility] Address: [address] [place] [address] Performed By: #### 2 4356-8 ####[facility] LABCLIA [id number] [place] [address] [place] Leukocyte esterase Test strip Ql (U) Negative Normal Negative [facility] Comment on above: Order Comment: Speci men Type: URINE SPECIMENOrdering Facility: [facility] Address: [address] [place] [address] Performed By: #### 2 4356-8 ####[facility] LABCLIA [id number] [place] [address] [place] Nitrite Ql (U) Negative Normal Negative [facility] Comment on above: Order Comment: Speci men Type: URINE SPECIMENOrdering Facility: [facility] Address: [address] [place] [address] Performed By: #### 2 4356-8 ####[facility] LABCLIA [id number] [place] [address] [place] pH (U) 8.5 [pH] High <8.5 [facility] Comment on above: Order Comment: Speci men Type: URINE SPECIMENOrdering Facility: [facility] Address: [address] [place] [address] Performed By: #### 2 4356-8 ####[facility] LABCLIA [id number] [place] [address] [place] Protein (U) [Mass/Vol] Trace Abnormal Negative [facility] Comment on above: Order Comment: Speci men Type: URINE SPECIMENOrdering Facility: [facility] Address: [address] [place] [address] Performed By: #### 2 4356-8 ####[facility] LABIA [id number] [place] [address] [place] RBC LM.HPF (Urine sed) [#/Area] 0-2 /HPF Normal 0-2 /HPF [facility] Comment on above: Order Comment: Speci men Type: URINE SPECIMENOrdering Facility: [facility] Address: [address] [place] [address] Performed By: #### 2 4356-8 ####[facility] [id number] [place] [address] [place] Specific gravity (U) [Rel density] 1.015 Normal 1.005-1.030 [facility] Comment on above: Order Comment: Speci men Type: URINE SPECIMENOrdering Facility: [facility] Address: [address] [place] [address] Performed By: #### 2 4356-8 ####[facility] [id number] [place] [address] [place] Urobilinogen Ql (U) 0.2 EU/dL Normal 0.2-1.0 EU/dL [facility] Comment on above: Order Comment: Speci men Type: URINE SPECIMENOrdering Facility: [facility] Address: [address] [place] [address] Performed By: #### 2 4356-8 ####[facility] LABIA [id number] [place] [address] [place] WBC LM.HPF (Urine sed) [#/Area] 0-5 /HPF Normal 0-5 /HPF [facility] Comment on above: Order Comment: Speci men Type: URINE SPECIMENOrdering Facility: [facility] Address: [address] [place] [address] Performed By: #### 2 4356-8 ####[facility] LABCLIA [id number] [place] [id number] [place] Vit B12 SerPl-mCncon 01-23-2 025 Cobalamin (Vitamin B12) [Mass/Vol] 1367 pg/mL High 232-1245 [facility] Comment on above: Order Comment: Speci men Type: BLOOD SPECIMENOrdering Facility: [facility] Address: [address] [place] [address] Performed By: #### 2 4323-8, 2132-9 ####[facility] LABCLIA [id number] [address] [place] CNPKinsey 09-15-2024 CNPN Telephone (FAMPWS) DIONY RAMIREZ ([id number]) 1955 F Date Time Provider Department 09/15/24 [facility] During your visit today, we recorded the following information about you: Kasey Becker LPN 09/15/2024 1:12 PM Signed Patient calling she had appt today in Pulmonary office with Letha Emery HOLTER TECHNICIAN at Dr Suleman Gustafson office. Asking for a copy of the CR Chest report faxed to [phone]. Printed report from 12/2022 and faxed as [...] Status:Closed by KASEY BECKER on 09/15/24 Normal [facility] Pulmonary Visit Reporton Pulmonary Visit Report [facility] of [address] [place] [address] OFFICE VISIT Date of Service: 09/15/24 MR#: [id number] Acct: [id number] Name: JENA RAMIREZ Rep #: [id number] : 1955 Provider: Letha Emery NP Age/Sex: 69/F [facility] Status: Signed Assessment and Plan Assessment [...] asthma a (more content not included)... [facility] Telephone (STEPHANIE) DIONY RAMIREZ ([id number]) 1955 F Date Time Provider Department 09/08/24 [...] presence [M81.0] Order(s):VITAMIN B12 [SQB12] Order #: [id number] FUTURE COMPREHENSIVE METABOLIC PANEL [SQCMP] Order #: [id number] FUTURE THYROID STIMULATING HORMONE [SQTSH] Order #: [id number] FUTURE URINALYSIS, WITH MICROSCOPIC [SQUAWMIC] Order #: [id number] FUTURE LIPID PANEL, NONFASTING [SQLIPNF] Order #: [id number] FUTURE MAGNESIUM [SQMG1] Order #: [id number] FUTURE COMPLETE BLOOD COUNT AND DIFFERENTIAL [SQCBCDIF] Order #: [id number] FUTURE HEMOGLOBIN A1C [BGJFO4T] Order #: [id number] FUTURE IRON AND TIBC [SQIRON] Order #: [id number] FUTURE VITAMIN D 25 HYDROXY [SQVITD] Order #: [id number] FUTURE Prescriptions as of 09/08/2024 - Dextromethorphan-guai [...] anogenital infection*06/ (more content not included)... Normal [facility] CNPNon [facility]-05-2024 [facility] DIONY RAMIREZ ([id number]) 1955 F Date Time Provider Department 08/05/24 [facility] During your visit today, we recorded the [...] Order(s):CONSULT TO PHYSICAL THERAPY [9032] Order #: [id number]: 1 FUTURE Prescriptions as of 08/07/2024 - [...] findings [R89.2] (more content not included)... Normal [facility] CNOVon 08-03-2024 CNOV Office Visit (FAMPWS ) DIONY RAMIREZ ([id number]) 1955 F Date Time Provider Department 08/03/24 9:20 AM ALEX BROWNWS During your visit today, we recorded the following information about you: Pulse Blood pressure Weight 79/minute 135/78 41.7 kg Alex Brown, ALAN.MERCHANDISE EXAMINER 08/03/2024 9:31 AM Signed Chief Complaint Patient [...] Take 1 (more content not included)... Normal [facility] XR HIP 3V PELV+ AP/LAT LTon [...] lumbar spine. IMPRESSION: Mild left hip osteoarthritis. Telephone Messenger: PSCB Transcribe Date/Time: Aug 05 2024 5:42A Dictated by : CATHLEEN KYLE MD This examination was interpreted and the report reviewed and electronically signed by: CATHLEEN KYLE MD on Aug 05 2024 5:42AM EST [id number] N Normal [facility] CNOVon 07-31-2024 CNOV Office Visit (UCWSTR ) DIONY RAMIREZ ([id number]) 1955 F Date Time Provider Department 07/31/24 [...] daily at (more content not included)... Normal [facility] XR CHEST 2V FRONTAL/LATon XR CHEST [...] for pneumonia or aspiration. Please clinically correlate. Telephone Messenger: PSCB Transcribe Date/Time: Jul 31 2024 11:30A Dictated by : LAURIE KAYE MD This examination was interpreted and the report reviewed and electronically signed by: LAURIE KAYE MD on Jul 31 2024 11:32AM EST [id number] N Normal [facility] XR Chest PA and Lateralon IMPRESSION: Small patchy opacities in the lower lobe, raising concern for pneumonia or aspiration. Please clinically correlate. Telephone Messenger: LEONARDO Transcribe Date/Time: Jul 31 2024 11:30A Dictated by : LAURIE KAYE MD This examination was interpreted and the report reviewed and electronically signed by: LAURIE KAYE MD on Jul 31 2024 11:32AM [facility] DIVISION OF RADIOLOGY * * *Final Report* [...] and degenerative changes. DIVISION OF RADIOLOGY Provider, [facility] - 07/31/2024 * * *Final Report* * [...] for pneumonia or aspiration. Please clinically correlate. Telephone Messenger: LEONARDO Transcribe Date/Time: Jul 31 2024 11:30A Dictated by : LAURIE KAYE MD This examination was interpreted and the report reviewed and electronically signed by: LAURIE KAYE MD on Jul 31 2024 11:32AM EST [facility] Radiology Study observation (narrative) Carlos nguyen [facility] XR Chest PA and LateralOrder ed By: Ccf Provider on 07-31-2024 [facility] Pulmonary Visit Reporton Pulmonary Visit Report [facility] [place] [address] [place] [address] OFFICE VISIT Date of Service: 07/21/24 MR#: [id number] Acct: [id number] Name: JENA RAMIREZ Rep #: [id number] : 1955 Provider: Letha Emery NP Age/Sex: 69/F Location[facility] Status: Signed Assessment and Plan Assessment and [...] L T (more content not included)... Normal [facility] UA DIP, URINE (POC)on 2023 BILIRUBIN UA (POCT) Negative Negative [facility] CLARITY UA (POCT) Clear [facility] COLOR UA (POCT) Yellow [facility] GLUCOSE UA (POCT) Negative Negative mg/dL [facility] Hemoglobin Ql (U) Small Abnormal Negative [facility] Interpretation and review of laboratory results Abnormal [facility] KETONE UA (POCT) Negative Negative mg/dL [facility] LEUKOCYTES UA (POCT) Moderate Abnormal Negative [facility] NITRITE UA (POCT) Negative Negative [facility] PH UA (POCT) 6.0 4.5 - 8.0 [facility] Protein Ql (U) Negative Negative mg/dL [facility] SPECIFIC GRAVITY UA (POCT) <=1.005 Abnormal 1.005 - 1.030 [facility] UROBILINOGEN UA (POCT) 0.2 Mary Ellen l E.U./dL [facility] Location:[address], [place], [address] [facility] POINT OF CARE [facility] UA DIP, URINE (POC)on 2023 BILIRUBIN UA (POCT) Negative Negative [facility] CLARITY UA (POCT) Clear [facility] COLOR UA (POCT) Yellow [facility] GLUCOSE UA (POCT) Negative Negative mg/dL [facility] Hemoglobin Ql (U) Negative Negative [facility] KETONE UA (POCT) Negative Negative mg/dL [facility] LEUKOCYTES UA (POCT) Negative Negative [facility] NITRITE UA (POCT) Negative Negative [facility] PH UA (POCT) 7.0 4.5 - 8.0 [facility] Protein Ql (U) Negative Negative mg/dL [facility] SPECIFIC GRAVITY UA (POCT) 1.010 1.005 - 1.030 [facility] UROBILINOGEN UA (POCT) 0.2 Mary Ellen l E.U./dL [facility] Location:[facility], [address] [place] [address], [place], [place], [id number] [place] [address] POINT OF CARE [facility] MR Shoulder - left LISET cabral 04-24-2024 IMPRESSION: Rotator cuff tendinosis without tear. Long head of biceps tendon sheath effusion that could potentially relate to tenosynovitis. Telephone Messenger: PSCB Transcribe Date/Time: Apr 24 2024 10:49A Dictated by : CATHLEEN KYLE MD This examination was interpreted and the report reviewed and electronically signed by: CATHLEEN KYLE MD on Apr 24 2024 10:58AM [facility] DIVISION OF RADIOLOGY * * *Final Report* * * DATE OF EXAM: Apr 24 2024 10:00AM [facility] 0239 - MRI SHOULDER WO IVCON LT [...] No additional findings. DIVISION OF RADIOLOGY Provider, [facility] * * *Final Report* * [...] effusion that could potentially relate to tenosynovitis. Telephone Messenger: LEONARDO Transcribe Date/Time: Apr 24 2024 10:49A Dictated by : CATHLEEN KYLE MD This examination was interpreted and the report reviewed and electronically signed by: CATHLEEN KYLE MD on Apr 24 2024 10:58AM EST [facility] Radiology Study observation (narrative) [facility] MR Shoulder - left WO contra stOrdered By: Ccf Provider on 04-24-2024 [facility] XR Chest PA and Lateralon IMPRESSION: Overall findings unchanged. Telephone Messenger: LEONARDO Transcribe Date/Time: Apr 14 2024 10:45A [...] and degenerative changes. DIVISION OF RADIOLOGY [facility] * * *Final Report* * [...] degenerative changes. IMPRESSION IMPRESSION: Overall findings unchanged. Telephone Messenger: LEONARDO Transcribe Date/Time: Apr 14 2024 10:45A Dictated by : LAURIE KAYE MD This examination was interpreted and the report reviewed and electronically signed by: LAURIE KAYE MD on Apr 14 2024 10:46AM EST [facility] Radiology Study observation (narrative) [facility] XR Chest PA and LateralOrder ed By: Ccf Provider on 04-14-2024 [facility] No Panel Informationon 03-18 IMPRESSION: No acute osseous abnormality. Mild LEFT glenohumeral and acromioclavicular osteoarthritis. Telephone Messenger: LEONARDO Transcribe Date/Time: Mar 18 2024 12:04P Dictated by : GARETH ESCAMILLA DO This examination was interpreted and the report reviewed and electronically signed by: GARETH ESCAMILLA DO on Mar 18 2024 12:08PM [facility] DIVISION OF RADIOLOGY Radiology Study observation (narrative) [facility] No Panel InformationOrdered By: Ccf Provider on 03-18-2024 [facility] XR Clavicle - left 2 Viewson [...] the cervicothoracic spine. DIVISION OF RADIOLOGY Provider, [facility] - 03/18/2024 * * *Final Report* * [...] abnormality. Mild LEFT glenohumeral and acromioclavicular osteoarthritis. Telephone Messenger: LEONARDO Transcribe Date/Time: Mar 18 2024 12:04P Dictated by : GARETH ESCAMILLA DO This examination was interpreted and the report reviewed and electronically signed by: GARETH ESCAMILLA DO on Mar 18 2024 12:08PM [facility] XR Shoulder - left 3 Viewson [...] the cervicothoracic spine. DIVISION OF RADIOLOGY Provider, [facility] - 03/18/2024 * * *Final Report* * [...] abnormality. Mild LEFT glenohumeral and acromioclavicular osteoarthritis. Telephone Messenger: PSCB Transcribe Date/Time: Mar 18 2024 12:04P Dictated by : GARETH ESCAMILLA DO This examination was interpreted and the report reviewed and electronically signed by: GARETH ESCAMILLA DO on Mar 18 2024 12:08PM [facility] COVID & INFLUENZA A/B & RSV NAAT, ROUTINEon 12-23-2023 FLUAV RNA THOMAS+probe Ql (Unsp spec) Not detected Not Detected [facility] FLUBV RNA THOMAS+probe Ql (Unsp spec) Not detected Not Detected [facility] Interpretation and review of laboratory results Normal [facility] RSV A RNA THOMAS+probe Ql (Unsp spec) Not detected Not Detected [facility] SARS-CoV-2 (COVID-19) RNA THOMAS+probe Ql (Resp) Not detected See comment [facility] Comment on above: The method used is R T-PCR or an equivalent NAAT method. Reference Range (the expected result in uninfected individuals): Not detected For upper respirator y tract samples, this test has been authorized by FDA under Emergenecy Use Authorization (EUA). For lower respiratory tract samples, this test was developed and its performance characteristics determined by [facility]'s [facility] ([facility]). It has not been cleared or approved by the FDA. [facility] is regulated under CLIA as qualified to perform high-complexity testing. This test is used for clinical purposes. It should not be regarded as investigational or for research. Test performed by [facility], [facility] Pathology and Laboratory Medicine [place], [address] [place] [address]. [facility] XR Chest PA and Lateralon IMPRESSION: Interstitial prominence in the lower lungs. No pleural effusion or consolidation. Telephone Messenger: LEONARDO Transcribe Date/Time: Dec 23 2023 11:12A Dictated by : DELMI AYALA MD This examination was interpreted and the report reviewed and electronically signed by: DELMI AYALA MD on Dec 23 2023 11:13AM [facility] DIVISION OF RADIOLOGY * * *Final Report* [...] spine DIVISION OF RADIOLOGY Provider, [facility] - 12/23/2023 * * *Final Report* [...] lower lungs. No pleural effusion or consolidation. Telephone Messenger: LEONARDO Transcribe Date/Time: Dec 23 2023 11:12A Dictated by : DELMI AYALA MD This examination was interpreted and the report reviewed and electronically signed by: DELMI AYALA MD on Dec 23 2023 11:13AM EST [facility] Radiology Study observation (narrative) [facility] XR Chest PA and LateralOrder ed By: Ccf Provider on 12-23-2023 [facility] No Panel Informationon 10-15 Radiology Study observation (narrative) [facility] X[facility] Cervical spine AP and Lat eral and obliqueon 10-15-2023 IMPRESSION: DEGENERATIVE CHANGE AND ALIGNMENT ABNORMALITIES DESCRIBED Telephone Messenger: LEONARDO Transcribe Date/Time: Oct 15 2023 2:46P Dictated by : CECILIO GAVIRIA MD This examination was interpreted and the report reviewed and electronically signed by: CECILIO GAVIRIA MD on Oct 15 2023 2:48PM [facility] DIVISION OF RADIOLOGY * * *Final Report* [...] or prevertebral swelling. DIVISION OF RADIOLOGY Provider, [facility] - 10/15/2023 * * *Final Report* [...] IMPRESSION: DEGENERATIVE CHANGE AND ALIGNMENT ABNORMALITIES DESCRIBED Telephone Messenger: [facility] Transcribe Date/Time: Oct 15 2023 2:46P Dictated by : CECILIO GAVIRIA MD This examination was interpreted and the report reviewed and electronically signed by: CECILIO GAVIRIA MD on Oct 15 2023 2:48PM EST [facility] XR Cervical spine AP and Lat eral and obliqueOrdered By: Ccf Provider on 10-15-2023 [facility] XR Shoulder - right 3 Viewso n 10-15-2023 IMPRESSION: No acute fracture. Degenerative disease of the right shoulder. Telephone Messenger: PSCB Transcribe Date/Time: Oct 15 2023 4:59P Dictated by : DELMI AYALA MD This examination was interpreted and the report reviewed and electronically signed by: DELMI AYALA MD on Oct 15 2023 5:00PM [facility] DIVISION OF RADIOLOGY * * *Final Report* [...] joint space narrowing. DIVISION OF RADIOLOGY Provider, [facility] - 10/15/2023 * * *Final Report* [...] fracture. Degenerative disease of the right shoulder. Telephone Messenger: LEONARDO Transcribe Date/Time: Oct 15 2023 4:59P Dictated by : DELMI AYALA MD This examination was interpreted and the report reviewed and electronically signed by: DELMI AYALA MD on Oct 15 2023 5:00PM [facility] XR Lumbar spine Views W flex ion and W extensionon 08-21-2023 IMPRESSION: Multilevel lumbar degenerative findings with postsurgical changes. At L3-4 there is 2 mm spondylolisthesis with flexion and anatomic positioning and neutral and extension. The L5-S1 level. There is mild spondylolisthesis which slightly increases with flexion. Telephone Messenger: LEONARDO Transcribe Date/Time: Aug 21 2023 3:53P Dictated by : VELIA RIVERA MD This examination was interpreted and the report reviewed and electronically signed by: VELIA RIVERA MD on Aug 21 2023 4:00PM [facility] DIVISION OF RADIOLOGY * * *Final Report* [...] Anatomic Variants: None. DIVISION OF RADIOLOGY Provider, [facility]al [facility] - 08/21/2023 * * *Final Report* * [...] mild spondylolisthesis which slightly increases with flexion. Telephone Messenger: LEONARDO Transcribe Date/Time: Aug 21 2023 3:53P Dictated by : VELIA RIVERA MD This examination was interpreted and the report reviewed and electronically signed by: VELIA RIVERA MD on Aug 21 2023 4:00PM EST [facility] XR Lumbar spine Views W flex ion and W extensionOrdered By: Ccf Provider on 08-21-2023 [facility] XR HIP BILATERAL 5V PEL/AP/L AT EACH HIPon 08-20-2023 IMPRESSION: Mild degenerative changes at the hips with no acute fractures seen Telephone Messenger: LEONARDO Transcribe Date/Time: Aug 20 2023 6:58P Dictated by : CELESTINO MOTA MD This examination was interpreted and the report reviewed and electronically signed by: CELESTINO MOTA MD on Aug 20 2023 6:59PM [facility] DIVISION OF RADIOLOGY * * *Final Report* [...] the left hip DIVISION OF RADIOLOGY Provider, [facility] - 08/20/2023 * * *Final Report* [...] the hips with no acute fractures seen Telephone Messenger: LEONARDO Transcribe Date/Time: Aug 20 2023 6:58P Dictated by : CELESTINO MOTA MD This examination was interpreted and the report reviewed and electronically signed by: CELESTINO MOTA MD on Aug 20 2023 6:59PM [facility] No Panel Informationon 08-15 Radiology Study observation (narrative) [facility] CBC W Auto Differential pane l (Bld)on 06-04-2023 Basophils (Bld) [#/Vol] 0.06 10*3/uL <0.11 k/uL [facility] Basophils/100 WBC (Bld) 0.5 % [facility] Differential cell count method Nom (Bld) Auto [facility] Eosinophils (Bld) [#/Vol] 0.10 10*3/uL <0.46 k/uL [facility] Eosinophils/100 WBC (Bld) 0.9 % [facility] Erythrocyte distribution width (RBC) [Ratio] 12.4 % 11.5 - 15.0 % [facility] Hematocrit (Bld) [Volume fraction] 45.7 % 36.0 - 46.0 % [facility] Hemoglobin (Bld) [Mass/Vol] 14.9 g/dL 11.5 - 15.5 g/dL [facility] Immature granulocytes (Bld) [#/Vol] <0.10 k/uL [facility] Immature granulocytes/100 WBC (Bld) 0.2 % [facility] Lymphocytes (Bld) [#/Vol] 1.43 10*3/uL 1.00 - 4.00 k/uL [facility] Lymphocytes/100 WBC (Bld) 12.7 % [facility] MCH (RBC) [Entitic mass] 33.6 pg 26. 0 - 34.0 pg [facility] MCHC (RBC) [Mass/Vol] 32.6 g/dL 30.5 - 36.0 g/dL [facility] MCV (RBC) [Entitic vol] 102.9 fL High 80.0 - 100.0 fL [facility] Monocytes (Bld) [#/Vol] 1.03 10*3/uL High <0.87 k/uL [facility] Monocytes/100 WBC (Bld) 9.2 % [facility] Neutrophils (Bld) [#/Vol] 8.61 10*3/uL High 1.45 - 7.50 k/uL [facility] Neutrophils/100 WBC (Bld) 76.5 % [facility] Nucleated RBC (Bld) [#/Vol] <0.01 k/uL [facility] Nucleated RBC/100 WBC (Bld) [Ratio] 0.0 /100 WBC [facility] Platelet mean volume (Bld) [Entitic vol] 9.8 fL 9.0 - 12.7 fL [facility] Platelets (Bld) [#/Vol] 262 10*3/uL 150 - 400 k/uL [facility] RBC (Bld) [#/Vol] 4.44 10*6/uL 3.90 - 5.2 0 m/uL [facility] WBC (Bld) [#/Vol] 11.25 10*3/uL High 3.70 - 11 .00 k/uL [facility] Absolute lymphocyte countOrd ered By: Mick Pelletier on 06-02-2023 Lymphocytes Auto (Unsp spec) [#/Vol] 1.34 10*3/uL 0.83-4.51 [facility] Basophil percentageOrdered B y: Mick Pelletier on 06-02-2023 Basophils/100 WBC (Bld) 0.7 % 0-1 [facility] Chloride [Moles/Vol] 110 mmol/L 98-107 [facility] Eosinophils/100 WBC (Bld) 1.3 % 0-5 [facility] Glucose [Mass/Vol] 74 mg/dL 74-106 [facility] Neutrophils (Bld) [#/Vol] 7.9 10*3/uL 2.0-7.7 [facility] Neutrophils/100 WBC (Bld) 74.5 % 47-70 [facility] Potassium [Moles/Vol] 3.6 mmol/L 3.5-5.1 [facility] Sodium [Moles/Vol] 142 mmol/L 136-145 [facility] WBC (Bld) [#/Vol] 10.6 10*3/uL 4.4-11.0 [facility] Blood erythrocytes count (nu mber/volume)Ordered By: Mick Pelletier on 06-02-2023 RBC (Bld) [#/Vol] 4.22 10*6/uL 4.2-5.4 [facility] Blood hemoglobin measurement (mass/volume)Ordered By: Mick Pelletier on 06-02-2023 Hemoglobin (Bld) [Mass/Vol] 14.1 g/dL 12.0-15.0 [facility] Blood lymphocytes/100 leukoc ytesOrdered By: Mick Pelletier on 06-02-2023 Lymphocytes/100 WBC (Bld) 12.6 % 19-41 [facility] Blood monocytes/100 leukocyt esOrdered By: Mick Pelletier on 06-02-2023 Monocytes/100 WBC (Bld) 10.5 % 0-10 [facility] Blood platelet mean volumeOr dered By: Mick Pelletier on 06-02-2023 Platelet mean volume (Bld) [Entitic vol] 9.4 fL 6.2-12.0 [facility] Determination of erythrocyte mean corpuscular volume (MCV)Ordered By: Mick Pelletier on 06-02-2023 MCV (RBC) [Entitic vol] 102.8 fL 81-99 [facility] Hematocrit Auto (Bld) [Volum e fraction]Ordered By: Mick Pelletier on 06-02-2023 Hematocrit (Bld) [Volume fraction] 43.4 % 37-47 [facility] - Chemistry and C hemistry - challengeOrdered By: Mick Pelletier on 06-02-2023 CO2 [Moles/Vol] 23.0 mmol/L 21.0-32.0 [facility] Urea nitrogen/Creatinine [Mass ratio] 27.7 mg/mg 10-20 [facility] - Hematology and Cell countsOrdered By: Mick Pelletier on 06-02-2023 Erythrocyte distribution width (RBC) [Entitic vol] 47.8 fL 35.1-43.9 [facility] Erythrocyte distribution width (RBC) [Ratio] 12.6 % 11.6-14.6 [facility] Immature granulocytes/100 WBC (Bld) 0.400 % 0.0-0.9 [facility] Comment on above: IG% - Immature Granu locytes (promyelocytes, myelocytes and metamyelocytes) > 1% indicates that a LEFT SHIFT is Present. MCH (RBC) [Entitic mass] 33.4 pg 27.0-32.0 [facility] Nucleated RBC/100 WBC (Bld) [Ratio] 0 % 0-5 [facility] MCHC Auto (RBC) [Mass/Vol]Or dered By: Mick Pelletier on 06-02-2023 MCHC (RBC) [Mass/Vol] 32.5 g/dL 32-36 [facility] No Panel InformationOrdered By: Mick Pelletier on 06-02-2023 Estimated Creatinine Clearance Calc 34.79 ml/min [facility] Estimated GFR (MDRD) Amer 134 mL/min >60 [facility] Comment on above: GFR Calc Estimated GFR (MDRD) Non-Af Amer 111 mL/min >60 [facility] Comment on above: Non- GFR Calc Platelets bldOrdered By: Dontae Pelletier on 06-02-2023 Platelets (Bld) [#/Vol] 266 10*3/uL 150-450 [facility] Serum or plasma calcium alonso urement (mass/volume)Ordered By: Mick Pelletier on 06-02-2023 Calcium [Mass/Vol] 8.0 mg/dL 8.5-10.1 [facility] Serum or plasma creatinine m easurement (mass/volume)Ordered By: Mick Pelletier on 06-02-2023 Creatinine [Mass/Vol] 0.58 mg/dL 0.55-1.02 [facility] Comment on above: The validity of the calculated GFR & GFRAA in patients over 70 years has not been determined. Clinical correlation is essential. Serum or plasma urea nitroge n measurement (mass/volume)Ordered By: Mick Pelletier on 06-02-2023 Urea nitrogen [Mass/Vol] 16 mg/dL 7-18 [facility] Thin prep Papanicolaou smear with manual screeningOrdered By: Mick Pelletier on 06-02-2023 Thin prep Papanicolaou smear with manual screening 9 5-15 [facility] Absolute lymphocyte countOrd ered By: Tyler Green on 05-31-2023 Lymphocytes Auto (Unsp spec) [#/Vol] 1.89 10*3/uL 0.83-4.51 [facility] Basophil percentageOrdered B y: Tyler Green on 05-31-2023 Basophil percentage 0 SEEN /hpf 0-5 [facility] Basophils/100 WBC (Bld) 0.6 % 0-1 [facility] Chloride [Moles/Vol] 101 mmol/L 98-107 [facility] Eosinophils/100 WBC (Bld) 1.4 % 0-5 [facility] Glucose [Mass/Vol] 101 mg/dL 74-106 [facility] Comment on above: Fasting Glucose resu lt from 100 to 125 mg/dL suggests IMPAIRED HOMEOSTASIS per A.D.A. criteria. Lactate [Moles/Vol] 1.0 mmol/L 0.4-2.0 [facility] Neutrophils (Bld) [#/Vol] 10.6 10*3/uL 2.0-7.7 [facility] Neutrophils/100 WBC (Bld) 76.5 % 47-70 [facility] Potassium [Moles/Vol] 4.1 mmol/L 3.5-5.1 [facility] Comment on above: Slight Hemolysis, Re sult may be falsely increased. Sodium [Moles/Vol] 135 mmol/L 136-145 [facility] WBC (Bld) [#/Vol] 13.8 10*3/uL 4.4-11.0 [facility] Bilirubin Test strip Ql (U)O rdered By: Tyler Green on 05-31-2023 Bilirubin Ql (U) Negative Negative [facility] Blood erythrocytes count (nu mber/volume)Ordered By: Tyler Green on 05-31-2023 RBC (Bld) [#/Vol] 4.61 10*6/uL 4.2-5.4 [facility] Blood hemoglobin measurement (mass/volume)Ordered By: Tyler Green on 05-31-2023 Hemoglobin (Bld) [Mass/Vol] 15.6 g/dL 12.0-15.0 [facility] Blood lymphocytes/100 leukoc ytesOrdered By: Tyler Green on 05-31-2023 Lymphocytes/100 WBC (Bld) 13.7 % 19-41 [facility] Blood monocytes/100 leukocyt esOrdered By: Tyler Green on 05-31-2023 Monocytes/100 WBC (Bld) 7.4 % 0-10 [facility] Blood platelet mean volumeOr dered By: Tyler Green on 05-31-2023 Platelet mean volume (Bld) [Entitic vol] 9.4 fL 6.2-12.0 [facility] Determination of erythrocyte mean corpuscular volume (MCV)Ordered By: Tyler Green on 05-31-2023 MCV (RBC) [Entitic vol] 98.9 fL 81-99 [facility] Hematocrit Auto (Bld) [Volum e fraction]Ordered By: Tyler Green on 05-31-2023 Hematocrit (Bld) [Volume fraction] 45.6 % 37-47 [facility] Ketones Test strip Ql (U)Ord ered By: Tyler Green on 05-31-2023 Ketones Ql (U) Negative Negative [facility] Laboratory - Chemistry and C hemistry - challengeOrdered By: Tyler Green on 05-31-2023 CO2 [Moles/Vol] 29.0 mmol/L 21.0-32.0 [facility] Urea nitrogen/Creatinine [Mass ratio] 19.0 mg/mg 10-20 [facility] - Hematology and Cell countsOrdered By: Tyler Green on 05-31-2023 Erythrocyte distribution width (RBC) [Entitic vol] 44.8 fL 35.1-43.9 [facility] Erythrocyte distribution width (RBC) [Ratio] 12.3 % 11.6-14.6 [facility] Immature granulocytes/100 WBC (Bld) 0.400 % 0.0-0.9 [facility] Comment on above: IG% - Immature Granu locytes (promyelocytes, myelocytes and metamyelocytes) > 1% indicates that a LEFT SHIFT is Present. MCH (RBC) [Entitic mass] 33.8 pg 27.0-32.0 [facility] Nucleated RBC/100 WBC (Bld) [Ratio] 0 % 0-5 [facility] MCHC Auto (RBC) [Mass/Vol]Or dered By: Tyler Green on 05-31-2023 MCHC (RBC) [Mass/Vol] 34.2 g/dL 32-36 [facility] Mucus LM Ql (Urine sed)Order ed By: Tyler Green on 05-31-2023 Mucus Ql (Urine sed) 0 SEEN /hpf [facility] Nitrite Test strip Ql (U)Ord ered By: Tyler Green on 05-31-2023 Nitrite Ql (U) Negative Negative [facility] No Panel InformationOrdered By: Tyler Green on 05-31-2023 Estimated Creatinine Clearance Calc 35.96 ml/min [facility] Estimated GFR (MDRD) Amer 121 mL/min >60 [facility] Comment on above: GFR Calc Estimated GFR (MDRD) Non-Af Amer 100 mL/min >60 [facility] Comment on above: Non- GFR Calc Platelets bldOrdered By: Haseeb Green on 05-31-2023 Platelets (Bld) [#/Vol] 299 10*3/uL 150-450 [facility] Protein Test strip Ql (U)Ord ered By: Tyler Green on 05-31-2023 Protein Ql (U) Negative Negative [facility] Serum or plasma calcium alonso urement (mass/volume)Ordered By: Tyler Green on 05-31-2023 Calcium [Mass/Vol] 8.9 mg/dL 8.5-10.1 [facility] Serum or plasma creatinine m easurement (mass/volume)Ordered By: Tyler Green on 05-31-2023 Creatinine [Mass/Vol] 0.63 mg/dL 0.55-1.02 [facility] Comment on above: The validity of the calculated GFR & GFRAA in patients over 70 years has not been determined. Clinical correlation is essential. Serum or plasma urea nitroge n measurement (mass/volume)Ordered By: Tyler Green on 05-31-2023 Urea nitrogen [Mass/Vol] 12 mg/dL 7-18 [facility] Squamous epithelial cells de tection in urine sediment by light microscopyOrdered By: Tyler Green on 05-31-2023 Epithelial cells.squamous LM Ql (Urine sed) 0-5 SEEN /hpf 5-10 [facility] Thin prep Papanicolaou smear with manual screeningOrdered By: Tyler Green on 05-31-2023 Thin prep Papanicolaou smear with manual screening 5 5-15 [facility] Urine blood detectionOrdered By: Tyler Green on 05-31-2023 RBC Ql (U) 25 /ul Negative [facility] RBC Ql (U) 0 SEEN /hpf 0-5 [facility] Urine clarityOrdered By: Haseeb Green on 05-31-2023 Clarity (U) Clear Clear [facility] Urine color determinationOrd ered By: Tyler Green on 05-31-2023 Color (U) Yellow Yellow [facility] Urine glucose detectionOrder ed By: Tyler Green on 05-31-2023 Glucose Ql (U) Normal mg/dl Normal [facility] Urine leukocyte esterase det ection by dipstickOrdered By: Tyler Green on 05-31-2023 Leukocyte esterase Test strip Ql (U) Negative Negative [facility] Urine pHOrdered By: Tyler Green on 05-31-2023 pH (U) 7.0 [pH] 5.0 - 8.0 [facility] Urine sediment bacteria coun t by microscopy (number/high power field)Ordered By: Tyler Green on 05-31-2023 Bacteria LM.HPF (Urine sed) [#/Area] 0 /[HPF] None Seen [facility] Urine specific gravity measu rementOrdered By: Tyler Green on 05-31-2023 Specific gravity (U) [Rel density] 1.010 1.002-1.030 [facility] Urobilinogen Auto test strip Ql (U)Ordered By: Tyler Green on 05-31-2023 Urobilinogen Ql (U) Normal mg/dl Normal [facility] CTA HEAD W IVCONon 3 [facility] Basic metabolic 2000 panelon 02-20-2023 Anion gap [Moles/Vol] 13 mmol/L 9 - 18 mmol/L [facility] Calcium [Mass/Vol] 9.7 mg/dL 8.5 - 10. 2 mg/dL [facility] Chloride [Moles/Vol] 97 mmol/L 97 - 10 5 mmol/L [facility] CO2 [Moles/Vol] 26 mmol/L 22 - 30 mmol/L [facility] Creatinine [Mass/Vol] 0.60 mg/dL 0.58 - 0.96 mg/dL [facility] Estimated Glomerular Filtration Rate 99 mL/min/1.73m >=60 mL/min/1.73m [facility] Glucose [Mass/Vol] 101 mg/dL High 74 - 99 mg/dL [facility] Potassium [Moles/Vol] 4.5 mmol/L 3.7 - 5.1 mmol/L [facility] Sodium [Moles/Vol] 136 mmol/L 136 - 144 mmol/L [facility] Urea nitrogen [Mass/Vol] 16 mg/dL 7 - 21 mg/d L [facility] CBC W Auto Differential pane l (Bld)on 02-20-2023 Basophils (Bld) [#/Vol] 0.07 10*3/uL <0.11 k/uL [facility] Basophils/100 WBC (Bld) 0.6 % [facility] Differential cell count method Nom (Bld) Auto [facility] Eosinophils (Bld) [#/Vol] 0.21 10*3/uL <0.46 k/uL [facility] Eosinophils/100 WBC (Bld) 1.9 % [facility] Erythrocyte distribution width (RBC) [Ratio] 12.0 % 11.5 - 15.0 % [facility] Hematocrit (Bld) [Volume fraction] 44.1 % 36.0 - 46.0 % [facility] Hemoglobin (Bld) [Mass/Vol] 14.5 g/dL 11.5 - 15.5 g/dL [facility] Immature granulocytes (Bld) [#/Vol] 0.10 10*3/uL High <0.10 k/uL [facility] Immature granulocytes/100 WBC (Bld) 0.9 % [facility] Lymphocytes (Bld) [#/Vol] 1.80 10*3/uL 1.00 - 4.00 k/uL [facility] Lymphocytes/100 WBC (Bld) 15.9 % [facility] MCH (RBC) [Entitic mass] 32.7 pg 26. 0 - 34.0 pg [facility] MCHC (RBC) [Mass/Vol] 32.9 g/dL 30.5 - 36.0 g/dL [facility] MCV (RBC) [Entitic vol] 99.5 fL 80.0 - 100.0 fL [facility] Monocytes (Bld) [#/Vol] 0.94 10*3/uL High <0.87 k/uL [facility] Monocytes/100 WBC (Bld) 8.3 % [facility] Neutrophils (Bld) [#/Vol] 8.20 10*3/uL High 1.45 - 7.50 k/uL [facility] Neutrophils/100 WBC (Bld) 72.4 % [facility] Nucleated RBC (Bld) [#/Vol] <0.01 k/uL [facility] Nucleated RBC/100 WBC (Bld) [Ratio] 0.0 /100 WBC [facility] Platelet mean volume (Bld) [Entitic vol] 8.6 fL Low 9.0 - 12.7 fL [facility] Platelets (Bld) [#/Vol] 621 10*3/uL High 150 - 400 k/uL [facility] RBC (Bld) [#/Vol] 4.43 10*6/uL 3.90 - 5.2 0 m/uL [facility] WBC (Bld) [#/Vol] 11.32 10*3/uL High 3.70 - 11 .00 k/uL [facility] TSH BLDon 02-20-2023 TSH Qn 1.060 m[IU]/L 0.270 - 4.200 mIU/L [facility] Absolute lymphocyte countOrd ered By: Raymundo Mercado on 02-12-2023 Lymphocytes Auto (Unsp spec) [#/Vol] 1.54 10*3/uL 0.83-4.51 [facility] Basophil percentageOrdered B y: Raymundo Mercado on 02-12-2023 Basophil percentage 0 SEEN /hpf 0-5 [facility] Basophils/100 WBC (Bld) 0.6 % 0-1 [facility] Chloride [Moles/Vol] 97 mmol/L 98-107 [facility] Eosinophils/100 WBC (Bld) 1.9 % 0-5 [facility] Glucose [Mass/Vol] 102 mg/dL 74-106 [facility] Comment on above: Fasting Glucose resu lt from 100 to 125 mg/dL suggests IMPAIRED HOMEOSTASIS per A.D.A. criteria. Neutrophils (Bld) [#/Vol] 6.0 10*3/uL 2.0-7.7 [facility] Neutrophils/100 WBC (Bld) 66.1 % 47-70 [facility] Potassium [Moles/Vol] 3.5 mmol/L 3.5-5.1 [facility] Sodium [Moles/Vol] 133 mmol/L 136-145 [facility] WBC (Bld) [#/Vol] 9.1 10*3/uL 4.4-11.0 [facility] Bilirubin Test strip Ql (U)O rdered By: Raymundo Mercado on 02-12-2023 Bilirubin Ql (U) Negative Negative [facility] Blood erythrocytes count (nu mber/volume)Ordered By: Raymundo Mercado on 02-12-2023 RBC (Bld) [#/Vol] 4.27 10*6/uL 4.2-5.4 [facility] Blood hemoglobin measurement (mass/volume)Ordered By: Raymundo Mercado on 02-12-2023 Hemoglobin (Bld) [Mass/Vol] 14.3 g/dL 12.0-15.0 [facility] Blood lymphocytes/100 leukoc ytesOrdered By: Raymundo Mercado on 02-12-2023 Lymphocytes/100 WBC (Bld) 17.0 % 19-41 [facility] Blood monocytes/100 leukocyt esOrdered By: Raymundo Mercado on 02-12-2023 Monocytes/100 WBC (Bld) 14.0 % 0-10 [facility] Blood platelet mean volumeOr dered By: Raymundo Mercado on 02-12-2023 Platelet mean volume (Bld) [Entitic vol] 8.7 fL 6.2-12.0 [facility] Determination of erythrocyte mean corpuscular volume (MCV)Ordered By: Raymundo Mercado on 02-12-2023 MCV (RBC) [Entitic vol] 98.8 fL 81-99 [facility] Hematocrit Auto (Bld) [Volum e fraction]Ordered By: Raymundo Mercado on 02-12-2023 Hematocrit (Bld) [Volume fraction] 42.2 % 37-47 [facility] Ketones Test strip Ql (U)Ord ered By: Raymundo Mercado on 02-12-2023 Ketones Ql (U) Negative Negative [facility] - Chemistry and C hemistry - challengeOrdered By: Raymundo Mercado on 02-12-2023 CO2 [Moles/Vol] 28.0 mmol/L 21.0-32.0 [facility] Urea nitrogen/Creatinine [Mass ratio] 12.3 mg/mg 10-20 [facility] - Hematology and Cell countsOrdered By: Raymundo Mercado on 02-12-2023 Erythrocyte distribution width (RBC) [Entitic vol] 43.2 fL 35.1-43.9 [facility] Erythrocyte distribution width (RBC) [Ratio] 11.9 % 11.6-14.6 [facility] Immature granulocytes/100 WBC (Bld) 0.400 % 0.0-0.9 [facility] Comment on above: IG% - Immature Granu locytes (promyelocytes, myelocytes and metamyelocytes) > 1% indicates that a LEFT SHIFT is Present. MCH (RBC) [Entitic mass] 33.5 pg 27.0-32.0 [facility] Nucleated RBC/100 WBC (Bld) [Ratio] 0 % 0-5 [facility] MCHC Auto (RBC) [Mass/Vol]Or dered By: Raymundo Mercado on 02-12-2023 MCHC (RBC) [Mass/Vol] 33.9 g/dL 32-36 [facility] Mucus LM Ql (Urine sed)Order ed By: Raymundo Mercado on 02-12-2023 Mucus Ql (Urine sed) 0 SEEN /hpf [facility] Nitrite Test strip Ql (U)Ord ered By: Raymundo Mercado on 02-12-2023 Nitrite Ql (U) Negative Negative [facility] No Panel InformationOrdered By: Raymundo Mercado on 02-12-2023 Estimated Creatinine Clearance Calc 38.35 ml/min [facility] Estimated GFR (MDRD) Amer 162 mL/min >60 [facility] Comment on above: GFR Calc Estimated GFR (MDRD) Non-Af Amer 134 mL/min >60 [facility] Comment on above: Non- GFR Calc Platelets bldOrdered By: Kim Mercado on 02-12-2023 Platelets (Bld) [#/Vol] 321 10*3/uL 150-450 [facility] Protein Test strip Ql (U)Ord ered By: Raymundo Mercado on 02-12-2023 Protein Ql (U) 15 mg/dl Negative [facility] Serum or plasma calcium alonso urement (mass/volume)Ordered By: Raymundo Mercado on 02-12-2023 Calcium [Mass/Vol] 9.1 mg/dL 8.5-10.1 [facility] Serum or plasma creatinine m easurement (mass/volume)Ordered By: Raymundo Mercado on 02-12-2023 Creatinine [Mass/Vol] 0.49 mg/dL 0.55-1.02 [facility] Comment on above: The validity of the calculated GFR & GFRAA in patients over 70 years has not been determined. Clinical correlation is essential. Serum or plasma urea nitroge n measurement (mass/volume)Ordered By: Raymundo Mercado on 02-12-2023 Urea nitrogen [Mass/Vol] 6 mg/dL 7-18 [facility] Squamous epithelial cells de tection in urine sediment by light microscopyOrdered By: Raymundo Mercado on 02-12-2023 Epithelial cells.squamous LM Ql (Urine sed) 0 SEEN /hpf 5-10 [facility] Thin prep Papanicolaou smear with manual screeningOrdered By: Raymundo Mercado on 02-12-2023 Thin prep Papanicolaou smear with manual screening 8 5-15 [facility] Urine blood detectionOrdered By: Raymundo Mercado on 02-12-2023 RBC Ql (U) 25 /ul Negative [facility] RBC Ql (U) 0 SEEN /hpf 0-5 [facility] Urine clarityOrdered By: Kim Mercado on 02-12-2023 Clarity (U) Clear Clear [facility] Urine color determinationOrd ered By: Raymundo Mercado on 02-12-2023 Color (U) Yellow Yellow [facility] Urine glucose detectionOrder ed By: Raymundo Mercado on 02-12-2023 Glucose Ql (U) Normal mg/dl Normal [facility] Urine leukocyte esterase det ection by dipstickOrdered By: Raymundo Mercado on 02-12-2023 Leukocyte esterase Test strip Ql (U) 25 /ul Negative [facility] Urine pHOrdered By: Raymundo segal on 02-12-2023 pH (U) 7.0 [pH] 5.0 - 8.0 [facility] Urine sediment bacteria coun t by microscopy (number/high power field)Ordered By: Raymundo Mercado on 02-12-2023 Bacteria LM.HPF (Urine sed) [#/Area] 0 /[HPF] None Seen [facility] Urine specific gravity measu rementOrdered By: Raymundo Mercado on 02-12-2023 Specific gravity (U) [Rel density] 1.010 1.002-1.030 [facility] Urobilinogen Auto test strip Ql (U)Ordered By: Raymundo Mercado on 02-12-2023 Urobilinogen Ql (U) Normal mg/dl Normal [facility] XR Wrist - right 4 Viewson 0 12-18-2022 IMPRESSION: No radiographic evidence of acute osseous injury Telephone Messenger: LEONARDO Transcribe Date/Time: Dec 18 2022 10:00A Dictated by : KATIE WATERS MD This examination was interpreted and the report reviewed and electronically signed by: KATIE WATERS MD on Dec 18 2022 10:02AM [facility] DIVISION OF RADIOLOGY * * *Final Report* [...] radiopaque foreign body. DIVISION OF RADIOLOGY Provider, [facility] - 12/18/2022 * * *Final Report* * [...] No radiographic evidence of acute osseous injury Telephone Messenger: [facility] Transcribe Date/Time: Dec 18 2022 10:00A Dictated by : KATIE WATERS MD This examination was interpreted and the report reviewed and electronically signed by: KATIE WATERS MD on Dec 18 2022 10:02AM EST [facility] Radiology Study observation (narrative) [facility] W[facility] - right 4 ViewsOrde red By: [facility] Provider on 12-18-[address] [facility] [address] CHEST WO IVCONon 12-04-19 [facility] US ABDOMEN COMPLETEon 2022 [facility] DXA-AXIAL SKELETONon 023 [facility] MARCIANO SCREENINGon 07-31-2022 [facility] ECG COMPLETEon 07-09-2022 Atrial Rate 82 BPM [facility] Calculated P [place] 41 degrees [facility] Calculated R [place] 48 degrees [facility] Calculated T [place] 37 degrees [facility] P-R Interval 124 ms [facility] QRS Duration 68 ms [facility] QT Interval 338 ms [facility] QTC Calculation (Bazett) 394 ms [facility] Ventricular Rate 82 BPM [facility] XR CHEST 2V FRONTAL/LATon [facility] XR Chest PA and Lateralon IMPRESSION: Stable chronic changes. No superimposed acute cardiopulmonary process. Telephone Messenger: LEONARDO Transcribe Date/Time: Jul 09 2022 3:46P Dictated by : KASEY BLOUNT MD This examination was interpreted and the report reviewed and electronically signed by: KASEY BLOUNT MD on Jul 09 2022 3:48PM [facility] DIVISION OF RADIOLOGY * * *Final Report* [...] destructive process noted. DIVISION OF RADIOLOGY Provider, [facility] - 07/09/2022 * * *Final Report* * [...] chronic changes. No superimposed acute cardiopulmonary process. Telephone Messenger: LEONARDO Transcribe Date/Time: Jul 09 2022 3:46P Dictated by : KASEY BLOUNT MD This examination was interpreted and the report reviewed and electronically signed by: KASEY BLOUNT MD on Jul 09 2022 3:48PM EST [facility] Radiology Study observation (narrative) [facility] XR Chest PA and LateralOrder ed By: [facility] Provider on 07-09-2022 [facility] XR Abdomen Supine and Uprigh ton 03-23-2022 IMPRESSION: Nonobstructive bowel gas pattern with fecal retention. Telephone Messenger: LEONARDO Transcribe Date/Time: Mar 23 2022 10:50A [...] abdominal examinations available for comparison within the [facility] Imaging Archives. Comparison is made to [...] SE_DIVISION OF RADIOLOGY Provider, [facility] Cristal reza [place] - 03/23/2022 * * *Final Report* * [...] abdominal examinations available for comparison within the [facility] Imaging Archives. Comparison is made to [...] Nonobstructive bowel gas pattern with fecal retention. [facility]phone Messenger: [facility] Transcribe Date/Time: Mar 23 2022 10:50A Dictated by : KASEY BLOUNT MD This examination was interpreted and the report reviewed and electronically signed by: KASEY BLOUNT MD on Mar 23 2022 5:53PM EST [facility] Radiology Study observation (narrative) [facility] XR Abdomen Supine and Uprigh tOrdered By: Ccf Provider on 03-23-2022 [facility] Absolute lymphocyte counton 03-18-2022 Lymphocytes Auto (Unsp spec) [#/Vol] 1.30 10*3/uL 0.83-4.51 [facility] Work Phone: Basophil percentageon 2021 Basophils/100 WBC (Bld) 0.5 % 0-1 [facility] Work Phone: Bilirubin [Mass/Vol] 0.40 mg/dL 0.20-1.00 [facility]: Comment on above: For patients on eltr ombopag therapy, use of Dimension [place] TBIL is not recommended. Chloride [Moles/Vol] 109 mmol/L 98-107 [facility] Work Phone: Eosinophils/100 WBC (Bld) 1.5 % 0-5 [facility] Work Phone: Glucose [Mass/Vol] 109 mg/dL 74-106 [facility] Work Phone: Comment on above: Fasting Glucose resu lt from 100 to 125 mg/dL suggests IMPAIRED HOMEOSTASIS per A.D.A. criteria. Neutrophils (Bld) [#/Vol] 8.4 10*3/uL 2.0-7.7 [facility] Work Phone: Neutrophils/100 WBC (Bld) 75.8 % 47-70 [facility] Work Phone: Potassium [Moles/Vol] 3.8 mmol/L 3.5-5.1 [facility] Work Phone: Protein [Mass/Vol] 6.4 g/dL 6.4-8.2 [facility] Work Phone: Sodium [Moles/Vol] 140 mmol/L 136-145 [facility] Work Phone: WBC (Bld) [#/Vol] 11.1 10*3/uL 4.4-11.0 [facility] Work Phone: Blood erythrocytes count (nu mber/volume)on 03-18-2022 RBC (Bld) [#/Vol] 4.28 10*6/uL 4.2-5.4 [facility] Work Phone: Blood hemoglobin measurement (mass/volume)on 03-18-2022 Hemoglobin (Bld) [Mass/Vol] 14.6 g/dL 12.0-15.0 [facility] Work Phone: Blood lymphocytes/100 leukoc yteson 03-18-2022 Lymphocytes/100 WBC (Bld) 11.7 % 19-41 [facility] Work Phone: Blood monocytes/100 leukocyt eson 03-18-2022 Monocytes/100 WBC (Bld) 10.2 % 0-10 [facility] Work Phone: Blood platelet mean volumeon 03-18-2022 Platelet mean volume (Bld) [Entitic vol] 8.8 fL 6.2-12.0 [facility] Work Phone: Determination of erythrocyte mean corpuscular volume (MCV)on 03-18-2022 MCV (RBC) [Entitic vol] 102.1 fL 81-99 [facility] Work Phone: Hematocrit Auto (Bld) [Volum e fraction]on 03-18-2022 Hematocrit (Bld) [Volume fraction] 43.7 % 37-47 [facility] Work Phone: Laboratory - Chemistry and C hemistry - challengeon 03-18-2022 ALP [Catalytic activity/Vol] 91 U/L 45-117 [facility] Work Phone: ALT [Catalytic activity/Vol] 15 U/L 13-56 [facility] Work Phone: CO2 [Moles/Vol] 27.0 mmol/L 21.0-32.0 [facility] Work Phone: Globulin (S) [Mass/Vol] 3.4 g/dL 2.2-4.2 [facility] Work Phone: Urea nitrogen/Creatinine [Mass ratio] 11.9 mg/mg 10-20 [facility] Work Phone: Laboratory - Hematology and Cell countson 03-18-2022 Erythrocyte distribution width (RBC) [Entitic vol] 47.5 fL 35.1-43.9 [facility] Work Phone: Erythrocyte distribution width (RBC) [Ratio] 12.5 % 11.6-14.6 [facility] Work Phone: Immature granulocytes/100 WBC (Bld) 0.300 % 0.0-0.9 [facility] Work Phone: Comment on above: IG% - Immature Granu locytes (promyelocytes, myelocytes and metamyelocytes) > 1% indicates that a LEFT SHIFT is Present. MCH (RBC) [Entitic mass] 34.1 pg 27.0-32.0 [facility] Work Phone: Nucleated RBC/100 WBC (Bld) [Ratio] 0 % 0-5 [facility] Work Phone: MCHC Auto (RBC) [Mass/Vol]on 03-18-2022 MCHC (RBC) [Mass/Vol] 33.4 g/dL 32-36 [facility] Work Phone: No Panel Informationon 03-18 Estimated Creatinine Clearance Calc 36.87 ml/min [facility] Work Phone: Estimated GFR (MDRD) Amer 132 mL/min >60 [facility] Work Phone: Comment on above: GFR Calc Estimated GFR (MDRD) Non-Af Amer 109 mL/min >60 [facility] Work Phone: Comment on above: Non- GFR Calc Platelets bldon 03-18-2022 Platelets (Bld) [#/Vol] 277 10*3/uL 150-450 [facility] Work Phone: Serum or plasma albumin alonso urement (mass/volume)on 03-18-2022 Albumin [Mass/Vol] 3.0 g/dL 3.2-5.0 [facility] Work Phone: [phone] Serum or plasma albumin/glob ulin mass ratioon 03-18-2022 Albumin/Globulin [Mass ratio] 0.9 {ratio} 0.9-2.4 [facility] Work Phone: [phone] Serum or plasma calcium alonso urement (mass/volume)on 03-18-2022 Calcium [Mass/Vol] 7.7 mg/dL 8.5-10.1 [facility] Work Phone: [phone] Serum or plasma creatinine m easurement (mass/volume)on 03-18-2022 Creatinine [Mass/Vol] 0.59 mg/dL 0.55-1.02 [facility] Work [facility]: Comment on above: The validity of the calculated GFR & GFRAA in patients over 70 years has not been determined. Clinical correlation is essential. Serum or plasma urea nitroge n measurement (mass/volume)on 03-18-2022 Urea nitrogen [Mass/Vol] 7 mg/dL 7-18 [facility] Work Phone: Thin prep Papanicolaou smear with manual screeningon 03-18-2022 Thin prep Papanicolaou smear with manual screening 16 U/L 15-37 [facility] Work Phone: Thin prep Papanicolaou smear with manual screening 4 5-15 [facility] Work Phone: Absolute lymphocyte counton 03-17-2022 Lymphocytes Auto (Unsp spec) [#/Vol] 1.49 10*3/uL 0.83-4.51 [facility] Work Phone: Basophil percentageon 2021 Basophil percentage 2.9 mg/dL 2.5-4.9 [facility] Work Phone: Basophils/100 WBC (Bld) 0.6 % 0-1 [facility] Work Phone: Bilirubin [Mass/Vol] 0.40 mg/dL 0.20-1.00 [facility] Work Phone: Comment on above: For patients on eltr ombopag therapy, use of Dimension [place] TBIL is not recommended. Chloride [Moles/Vol] 104 mmol/L 98-107 [facility] Work Phone: Eosinophils/100 WBC (Bld) 1.7 % 0-5 [facility] Work Phone: Glucose [Mass/Vol] 128 mg/dL 74-106 [facility] Work Phone: Comment on above: Fasting Glucose resu lt greater than or equal to 126 mg/dL suggests DIABETES MELLITUS per A.D.A. criteria. Lactate [Moles/Vol] 0.6 mmol/L 0.4-2.0 [facility] Work Phone: Neutrophils (Bld) [#/Vol] 8.7 10*3/uL 2.0-7.7 [facility] Work Phone: Neutrophils/100 WBC (Bld) 75.8 % 47-70 [facility] Work Phone: Potassium [Moles/Vol] 3.8 mmol/L 3.5-5.1 [facility] Work Phone: Protein [Mass/Vol] 7.3 g/dL 6.4-8.2 [facility] Work Phone: Sodium [Moles/Vol] 138 mmol/L 136-145 [facility] Work Phone: WBC (Bld) [#/Vol] 11.5 10*3/uL 4.4-11.0 [facility] Work Phone: Bilirubin Test strip Ql (U)o n 03-17-2022 Bilirubin Ql (U) Negative Negative [facility] Work Phone: Blood erythrocytes count (nu mber/volume)on 03-17-2022 RBC (Bld) [#/Vol] 4.68 10*6/uL 4.2-5.4 [facility] Work Phone: Blood hemoglobin measurement (mass/volume)on 03-17-2022 Hemoglobin (Bld) [Mass/Vol] 15.9 g/dL 12.0-15.0 [facility] Work Phone: Blood lymphocytes/100 leukoc yteson 03-17-2022 Lymphocytes/100 WBC (Bld) 12.9 % 19-41 [facility] Work Phone: Blood monocytes/100 leukocyt eson 03-17-2022 Monocytes/100 WBC (Bld) 8.7 % 0-10 [facility] Work Phone: Blood platelet mean volumeon 03-17-2022 Platelet mean volume (Bld) [Entitic vol] 9.0 fL 6.2-12.0 [facility] Work Phone: Determination of erythrocyte mean corpuscular volume (MCV)on 03-17-2022 MCV (RBC) [Entitic vol] 100.9 fL 81-99 [facility] Work Phone: [phone] Hematocrit Auto (Bld) [Volum e fraction]on 03-17-2022 Hematocrit (Bld) [Volume fraction] 47.2 % 37-47 [facility] Work Phone: [phone] Ketones Test strip Ql (U)on 03-17-2022 Ketones Ql (U) 5 mg/dl Negative [facility] Work Phone: Laboratory - Chemistry and C hemistry - challengeon 03-17-2022 ALP [Catalytic activity/Vol] 101 U/L 45-117 [facility] Work Phone: ALT [Catalytic activity/Vol] 19 U/L 13-56 [facility] Work Phone: CO2 [Moles/Vol] 28.0 mmol/L 21.0-32.0 [facility] Work Phone: Globulin (S) [Mass/Vol] 3.7 g/dL 2.2-4.2 [facility] Work Phone: [phone] Lipase [Catalytic activity/Vol] 212 U/L 73-393 [facility] Work Phone: [phone] Magnesium [Mass/Vol] 2.2 mg/dL 1.6-2.6 [facility] Work Phone: [phone] Comment on above: Moderate Hemolysis, Result may be falsely increased. Urea nitrogen/Creatinine [Mass ratio] 16.2 mg/mg 10-20 [facility] Work Phone: [phone] Laboratory - Hematology and Cell countson 03-17-2022 Erythrocyte distribution width (RBC) [Entitic vol] 46.3 fL 35.1-43.9 [facility] Work Phone: [phone] Erythrocyte distribution width (RBC) [Ratio] 12.3 % 11.6-14.6 [facility] Work Phone: Immature granulocytes/100 WBC (Bld) 0.300 % 0.0-0.9 [facility] Work Phone: Comment on above: IG% - Immature Granu locytes (promyelocytes, myelocytes and metamyelocytes) > 1% indicates that a LEFT SHIFT is Present. MCH (RBC) [Entitic mass] 34.0 pg 27.0-32.0 [facility] Work Phone: Nucleated RBC/100 WBC (Bld) [Ratio] 0 % 0-5 [facility] Work Phone: [phone] MCHC Auto (RBC) [Mass/Vol]on 03-17-2022 MCHC (RBC) [Mass/Vol] 33.7 g/dL 32-36 [facility] Work Phone: [phone] Nitrite Test strip Ql (U)on 03-17-2022 Nitrite Ql (U) Negative Negative [facility] Work Phone: No Panel Informationon 03-17 Estimated Creatinine Clearance Calc 37.64 ml/min [facility] Work Phone: Estimated GFR (MDRD) Amer 101 mL/min >60 [facility] Work Phone: Comment on above: GFR Calc Estimated GFR (MDRD) Non-Af Amer 83 mL/min >60 [facility] Work Phone: Comment on above: Non- GFR Calc Platelets bldon 03-17-2022 Platelets (Bld) [#/Vol] 331 10*3/uL 150-450 [facility] Work Phone: Protein Test strip Ql (U)on 03-17-2022 Protein Ql (U) Negative Negative [facility] Work Phone: [phone] Serum or plasma albumin alonso urement (mass/volume)on 03-17-2022 Albumin [Mass/Vol] 3.6 g/dL 3.2-5.0 [facility] Work Phone: [phone] Serum or plasma albumin/glob ulin mass ratioon 03-17-2022 Albumin/Globulin [Mass ratio] 1.0 {ratio} 0.9-2.4 [facility] Work Phone: Serum or plasma calcium alonso urement (mass/volume)on 03-17-2022 Calcium [Mass/Vol] 8.9 mg/dL 8.5-10.1 [facility] Work Phone: Serum or plasma creatinine m easurement (mass/volume)on 03-17-2022 Creatinine [Mass/Vol] 0.74 mg/dL 0.55-1.02 [facility] Work Phone: Comment on above: The validity of the calculated GFR & GFRAA in patients over 70 years has not been determined. Clinical correlation is essential. Serum or plasma urea nitroge n measurement (mass/volume)on 03-17-2022 Urea nitrogen [Mass/Vol] 12 mg/dL 7-18 [facility] Work Phone: Thin prep Papanicolaou smear with manual screeningon 03-17-2022 Thin prep Papanicolaou smear with manual screening 17 U/L 15-37 [facility] Work Phone: Thin prep Papanicolaou smear with manual screening 6 5-15 [facility] Work Phone: Urine blood detectionon 03-02 RBC Ql (U) 25 /ul Negative [facility] Work Phone: Urine clarityon 03-17-2022 Clarity (U) Clear Clear [facility] Work Phone: Urine color determinationon 03-17-2022 Color (U) Yellow Yellow [facility] Work Phone: Urine glucose detectionon Glucose Ql (U) Normal mg/dl Normal [facility] Work Phone: Urine leukocyte esterase det ection by dipstickon 03-17-2022 Leukocyte esterase Test strip Ql (U) Negative Negative [facility] Work Phone: Urine pHon 03-17-2022 pH (U) 6.0 [pH] 5.0 - 8.0 [facility] Work Phone: Urine specific gravity measu rementon 03-17-2022 Specific gravity (U) [Rel density] 1.010 1.002-1.030 [facility] Work Phone: Urobilinogen Auto test strip Ql (U)on 03-17-2022 Urobilinogen Ql (U) Normal mg/dl Normal [facility] Work Phone: XR SACRUM/COCCYX 3V AP/LATon 03-14-2022 [facility] XR Sacrum and Coccyx 3 Views on 03-14-2022 IMPRESSION: No acute radiographic abnormalities seen in the sacrum/coccyx. Telephone Messenger: LEONARDO Transcribe Date/Time: Mar 14 2022 11:12A [...] L5 laminectomy. [id number] _DIVISION OF RADIOLOGY Provider, [facility] Cristal reza [place] - 03/14/2022 * * *Final Report* * [...] acute radiographic abnormalities seen in the sacrum/coccyx. Telephone Messenger: [facility] Transcribe Date/Time: Mar 14 2022 11:12A Dictated by : LAURIE KAYE MD This examination was interpreted and the report reviewed and electronically signed by: LAURIE KAYE MD on Mar 14 2022 11:14AM [facility] Radiology Study observation (narrative) [facility] XR Sacrum and Coccyx 3 Views Ordered By: Ccf Provider on 03-14-2022 [facility] XR Chest PA and Lateralon IMPRESSION: No acute radiographic abnormality. Telephone Messenger: [facility] Transcribe Date/Time: Dec 27 2020 10:19A Dictated by : CECILIO GAVIRIA MD This examination was interpreted and the report reviewed and electronically signed by: CECILIO GAVIRIA MD on Dec 27 2020 10:20AM [facility] DIVISION OF RADIOLOGY * * *Final Report* [...] Degenerative change. Osteopenia DIVISION OF RADIOLOGY Provider, [facility] Cristal [place] - 12/27/2020 * * *Final [...] Osteopenia IMPRESSION IMPRESSION: No acute radiographic abnormality. Telephone Messenger: LEONARDO Transcribe Date/Time: Dec 27 2020 10:19A Dictated by : CECILIO GAVIRIA MD This examination was interpreted and the report reviewed and electronically signed by: CECILIO GAVIRIA MD on Dec 27 2020 10:20AM [facility] Radiology Study observation (narrative) [facility] XR Chest PA and LateralOrder ed By: Ccf Provider on 12-27-2020 [facility] XR Pelvis and Hip - left AP and Lateral frogon 12-17-2020 IMPRESSION: No acute findings radiographically. Postoperative and degenerative changes lower lumbar spine. Telephone Messenger: [facility] Transcribe Date/Time: Dec 17 2020 10:28A Dictated by : TOI MACK MD This examination was interpreted and the report reviewed and electronically signed by: TOI MACK MD on Dec 17 2020 10:33AM [facility] DIVISION OF RADIOLOGY * * *Final Report* [...] laminectomies. DIVISION OF RADIOLOGY Provider, Elder reza [place] - 12/17/2020 * * *Final Report* * [...] Postoperative and degenerative changes lower lumbar spine. Telephone Messenger: LEONARDO Transcribe Date/Time: Dec 17 2020 10:28A Dictated by : TOI MACK MD This examination was interpreted and the report reviewed and electronically signed by: TOI MACK MD on Dec 17 2020 10:33AM [facility] Radiology Study observation (narrative) [facility] XR Pelvis and Hip - left AP and Lateral frogOrdered By: Cc Provider on 12-17-2020 [facility] XR Chest PA and Lateralon IMPRESSION: no active cardiopulmonary disease Telephone Messenger: [facility] Transcribe Date/Time: Jul 23 2020 9:03P Dictated by : TOÑO GARCIA MD This examination was interpreted and the report reviewed and electronically signed by: TOÑO GARCIA MD on Jul 23 2020 9:04PM [facility] DIVISION OF RADIOLOGY * * *Final Report* [...] right DIVISION OF RADIOLOGY Provider, Elder Bee [facility] - 07/23/2020 * * *Final Report* [...] right IMPRESSION IMPRESSION: no active cardiopulmonary disease Telephone Messenger: [facility] Transcribe Date/Time: Jul 23 2020 9:03P Dictated by : TOÑO GARCIA MD This examination was interpreted and the report reviewed and electronically signed by: TOÑO GARCIA MD on Jul 23 2020 9:04PM EST [facility] Radiology Study observation (narrative) [facility] XR Chest PA and LateralOrder ed By: Ccf Provider on 07-23-2020 [facility] Vital Signs Date Time Vital Sign Value Performing Clinician Facility 06-08-2025 10:39-0400 Body height 144.[address] Rito Camp MD Work Phone: [facility] 06-08-2025 10:39-0400 Body mass index (BMI) [Ratio] 19.3 kg/m2 Dr. Rito Camp MD Work Phone: [facility] 06-08-2025 10:39-0400 Body weight 40.[address] Rito Camp MD Work Phone: [facility] 05-16-2025 12:07-0400 Body mass index (BMI) [Ratio] 20.12 kg/m2 Ky Shaver MARKETER.MERCHANDISE EXAMINER Work Phone: [facility] 05-16-2025 12:07-0400 Body temperature 99.1 [degF] Ky Moomaw MARKETER.MERCHANDISE EXAMINER Work Phone: [facility] 05-16-2025 12:07-0400 Body weight 40.7 kg Ky Moomaw MARKETER.MERCHANDISE EXAMINER Work Phone: [facility] 05-16-2025 12:07-0400 Diastolic blood pressure 80 mm[Hg] Ky Moomaw MARKETER.MERCHANDISE EXAMINER Work Phone: [facility] 05-16-2025 12:07-0400 Heart rate 94 /min Ky Moomaw MARKETER.MERCHANDISE EXAMINER Work Phone: [facility] 05-16-2025 12:07-0400 Respiratory rate 18 /min Ky Moomaw MARKETER.MERCHANDISE EXAMINER Work Phone: [facility] 05-16-2025 12:07-0400 SaO2% (BldA) [Mass fraction] 99 % Ky Moomaw MARKETER.MERCHANDISE EXAMINER Work Phone: [facility] 05-16-2025 12:07-0400 Systolic blood pressure 130 mm[Hg] Ky Moomaw MARKETER.MERCHANDISE EXAMINER Work Phone: [facility] 05-14-2025 10:19-0400 Body mass index (BMI) [Ratio] 19.77 kg/m2 Alex Brown MARKETER.MERCHANDISE EXAMINER Work Phone: [facility] 05-14-2025 10:19-0400 Body weight 40 kg Alex Brown MARKETER.MERCHANDISE EXAMINER Work Phone: [facility] 05-14-2025 10:19-0400 Diastolic blood pressure 74 mm[Hg] Alex Brown MARKETER.MERCHANDISE EXAMINER Work Phone: [facility] 05-14-2025 10:19-0400 Heart rate 86 /min Alex Brown MARKETER.MERCHANDISE EXAMINER Work Phone: [facility] 05-14-2025 10:19-0400 Systolic blood pressure 153 mm[Hg] Alex Brown APRN.CNP Work Phone: [facility] 05-04-2025 08:58-0400 Body height 142.2 cm Shanita Green PA-C Work Phone: [facility] 05-04-2025 08:58-0400 Body mass index (BMI) [Ratio] 20.67 kg/m2 Shanita Green PA-C Work Phone: [facility] 05-04-2025 08:58-0400 Body weight 41.82 kg Shanita Green PA-C Work Phone: [facility] 05-04-2025 08:58-0400 Diastolic blood pressure 70 mm[Hg] Shanita Green PA-C Work Phone: [facility] 05-04-2025 08:58-0400 Heart rate 81 /min Shanita Green PA-C Work Phone: [facility] 05-04-2025 08:58-0400 Respiratory rate 14 /min Shanita Green PA-C Work Phone: [facility] 05-04-2025 08:58-0400 SaO2% (BldA) [Mass fraction] 95 % Shanita Green PA-C Work Phone: [facility] 05-04-2025 08:58-0400 Systolic blood pressure 130 mm[Hg] Shanita Green PA-C Work Phone: [facility] 04-20-2025 10:26-0400 Body height 144.[address] Rito Camp MD Work Phone: [facility] 04-20-2025 10:26-0400 Body mass index (BMI) [Ratio] 19.9 kg/m2 Dr. Rito Camp MD Work Phone: [facility] 04-20-2025 10:26-0400 Body weight 41.[address] Rito Camp MD Work Phone: [facility] 03-31-2025 09:23-0400 Body temperature 98.4 [degF] Dr. Rito Camp MD Work Phone: 8(935)505-696177 [place] [address] 03-31-2025 09:23-0400 Diastolic blood pressure 76 mm[Hg] Dr. Rito Camp MD Work Phone: 3(202)052-226529 [place] [address] 03-31-2025 09:23-0400 Heart rate 75 /min Dr. Rito Camp MD Work Phone: 2(408)501-478329 [place] [address] 03-31-2025 09:23-0400 Respiratory rate 16 /min Dr. Rito Camp MD Work Phone: 7(629)963-695029 [place] [address] 03-31-2025 09:23-0400 SaO2% (BldA) [Mass fraction] 94 % Dr. Rito Camp MD Work Phone: 7(230)737-038229 [place] [address] 03-31-2025 09:23-0400 Systolic blood pressure 119 mm[Hg] Dr. Rito Camp MD Work Phone: 0(531)864-318929 [place] [address] 03-31-2025 07:10-0400 Body height 144.[address] Rito Camp MD Work Phone: 8(969)262-032929 [place] [address] 03-31-2025 07:10-0400 Body mass index (BMI) [Ratio] 19.5 kg/m2 Dr. Rito Camp MD Work Phone: 4(724)984-515429 [place] [address] 03-31-2025 07:10-0400 Body weight 40.[address] Rito Camp MD Work Phone: 3(737)846-509529 [place] [address] 03-15-2025 09:52-0400 Body temperature 98.71 [degF] Shanita Green PA-C Work Phone: 7(731)518-493245 [place] [address] 03-15-2025 09:52-0400 Diastolic blood pressure 80 mm[Hg] Shanita Green PA-C Work Phone: [facility] 03-15-2025 09:52-0400 Heart rate 86 /min Shanita Green PA-C Work Phone: [facility] 03-15-2025 09:52-0400 Respiratory rate 16 /min Shanita Green PA-C Work Phone: [facility] 03-15-2025 09:52-0400 SaO2% (BldA) [Mass fraction] 96 % Shanita Green PA-C Work Phone: [facility] 03-15-2025 09:52-0400 Systolic blood pressure 110 mm[Hg] Shanita Green PA-C Work Phone: [facility] 02-09-2025 07:42-0400 Body height 144.[address] Rito Camp MD Work Phone: 7(382)366-548177 [place] [address] 02-09-2025 07:42-0400 Body mass index (BMI) [Ratio] 19 kg/m2 Dr. Rito Camp MD Work Phone: 7(881)800-790129 [place] [address] 02-09-2025 07:42-0400 Body temperature 96.4 [degF] Dr. Rito Camp MD Work Phone: 0(489)573-921429 [place] [address] 02-09-2025 07:42-0400 Body weight 39.[address] Rito Camp MD Work Phone: 3(171)141-897629 [place] [address] 02-09-2025 07:42-0400 Diastolic blood pressure 88 mm[Hg] Dr. Rito Camp MD Work Phone: 1(915)079-931877 [place] [address] 02-09-2025 07:42-0400 Heart rate 83 /min Dr. Rito Camp MD Work Phone: 2(219)508-587877 [place] [address] 02-09-2025 07:42-0400 Respiratory rate 16 /min Dr. Rito Camp MD Work Phone: 2(490)241-488629 [place] [address] 02-09-2025 07:42-0400 SaO2% (BldA) [Mass fraction] 95 % Dr. Rito Camp MD Work Phone: 5(536)445-225577 [place] [address] 02-09-2025 07:42-0400 Systolic blood pressure 132 mm[Hg] Dr. Rito Camp MD Work Phone: 7(305)320-308677 [place] [address] 01-05-2025 09:52-0400 Body mass index (BMI) [Ratio] 19.76 kg/m2 Shanita Green PA-C Work Phone: [facility] 01-05-2025 09:52-0400 Body temperature 97.81 [degF] Shantia Green PA-C Work Phone: [facility] 01-05-2025 09:52-0400 Body weight 39.97 kg Shanita Green PA-C Work Phone: [facility] 01-05-2025 09:52-0400 Diastolic blood pressure 82 mm[Hg] Shaniat Green PA-C Work Phone: [facility] 01-05-2025 09:52-0400 Heart rate 77 /min Shanita Green PA-C Work Phone: [facility] 01-05-2025 09:52-0400 Respiratory rate 16 /min Shanitajonelle Green PA-C Work Phone: [facility] 01-05-2025 09:52-0400 SaO2% (BldA) [Mass fraction] 96 % Shanita Green PA-C Work Phone: [facility] 01-05-2025 09:52-0400 Systolic blood pressure 118 mm[Hg] Shanitaskyla Green PA-C Work Phone: [facility] 10-01-2024 10:15-0500 Body height 142.2 cm Rito Camp MD Work Phone: [facility] 10-01-2024 10:15-0500 Body mass index (BMI) [Ratio] 20.49 kg/m2 Rito Camp MD Work Phone: [facility] 10-01-2024 10:15-0500 Body weight 41.46 kg Rito Camp MD Work Phone: [facility] 10-01-2024 10:15-0500 Diastolic blood pressure 77 mm[Hg] Rito Camp MD Work Phone: [facility] 10-01-2024 10:15-0500 Heart rate 83 /min Rito Camp MD Work Phone: [facility] 10-01-2024 10:15-0500 Systolic blood pressure 138 mm[Hg] Rito Camp MD Work Phone: 4(157)197-287645 [place] [address] 09-15-2024 08:02-0500 Body height 144.[address] Rito Camp MD Work Phone: 2(504)799-929429 [place] [address] 09-15-2024 08:02-0500 Body mass index (BMI) [Ratio] 19.9 kg/m2 Dr. Rito Camp MD Work Phone: 5(436)679-168829 [place] [address] 09-15-2024 08:02-0500 Body temperature 97 [degF] Dr. Rito Camp MD Work Phone: 3(648)966-380329 [place] [address] 09-15-2024 08:02-0500 Body weight 41.[address] Rito Camp MD Work Phone: 3(594)607-757529 [place] [address] 09-15-2024 08:02-0500 Diastolic blood pressure 80 mm[Hg] Dr. Rito Camp MD Work Phone: 5(333)275-922529 [place] [address] 09-15-2024 08:02-0500 Heart rate 85 /min Dr. Rito Camp MD Work Phone: 0(938)892-865329 [place] [address] 09-15-2024 08:02-0500 Respiratory rate 20 /min Dr. Rito Camp MD Work Phone: 1(458)803-688629 [place] [address] 09-15-2024 08:02-0500 SaO2% (BldA) [Mass fraction] 95 % Dr. Rito Camp MD Work Phone: 9(245)410-610977 [place] [address] 09-15-2024 08:02-0500 Systolic blood pressure 127 mm[Hg] Dr. Rito Camp MD Work Phone: 7(548)264-200729 [place] [address] 08-03-2024 09:16-0500 Body mass index (BMI) [Ratio] 19.91 kg/m2 Alex Brown APRN.CNP Work Phone: 7(071)851-367645 [place] [address] 08-03-2024 09:16-0500 Body weight 41.73 kg Alex Brown APRN.MERCHANDISE EXAMINER Work Phone: [facility] 08-03-2024 09:16-0500 Diastolic blood pressure 78 mm[Hg] Alex Brown APRN.MERCHANDISE EXAMINER Work Phone: [facility] 08-03-2024 09:16-0500 Heart rate 79 /min Alex Brown APRN.MERCHANDISE EXAMINER Work Phone: [facility] 08-03-2024 09:16-0500 Systolic blood pressure 135 mm[Hg] Alex Brown APRN.MERCHANDISE EXAMINER Work Phone: [facility] 07-31-2024 10:45-0500 Body mass index (BMI) [Ratio] 19.66 kg/m2 Shanna Newton APRN.MERCHANDISE EXAMINER Work Phone: [facility] 07-31-2024 10:45-0500 Body temperature 99.3 [degF] Shanna Newton APRN.MERCHANDISE EXAMINER Work Phone: [facility] 07-31-2024 10:45-0500 Body weight 41.2 kg Shanna Newton APRN.MERCHANDISE EXAMINER Work Phone: [facility] 07-31-2024 10:45-0500 Diastolic blood pressure 88 mm[Hg] Shanna Newton APRN.MERCHANDISE EXAMINER Work Phone: [facility] 07-31-2024 10:45-0500 Heart rate 96 /min Shanna Newton APRN.MERCHANDISE EXAMINER Work Phone: [facility] 07-31-2024 10:45-0500 Respiratory rate 20 /min Shanna Newton APRN.MERCHANDISE EXAMINER Work Phone: [facility] 07-31-2024 10:45-0500 SaO2% (BldA) [Mass fraction] 92 % Shanna Newton APRN.MERCHANDISE EXAMINER Work Phone: [facility] 07-31-2024 10:45-0500 Systolic blood pressure 148 mm[Hg] Shanna Newton APRN.MERCHANDISE EXAMINER Work Phone: [facility] 06-07-2024 11:08-0400 Body mass index (BMI) [Ratio] 18.84 kg/m2 Shanna Newton APRN.MERCHANDISE EXAMINER Work Phone: [facility] 06-07-2024 11:08-0400 Body temperature 98.8 [degF] Shanna Newton APRN.MERCHANDISE EXAMINER Work Phone: [facility] 06-07-2024 11:08-0400 Body weight 39.5 kg Shanna Newton APRN.MERCHANDISE EXAMINER Work Phone: [facility] 06-07-2024 11:08-0400 Diastolic blood pressure 84 mm[Hg] Shanna Newton APRN.MERCHANDISE EXAMINER Work Phone: [facility] 06-07-2024 11:08-0400 Heart rate 99 /min Shanna Newton APRN.MERCHANDISE EXAMINER Work Phone: [facility] 06-07-2024 11:08-0400 Respiratory rate 22 /min Shanna Newton APRN.MERCHANDISE EXAMINER Work Phone: [facility] 06-07-2024 11:08-0400 SaO2% (BldA) [Mass fraction] 95 % Shanna Newton APRN.MERCHANDISE EXAMINER Work Phone: [facility] 06-07-2024 11:08-0400 Systolic blood pressure 154 mm[Hg] Shanna Newton APRN.MERCHANDISE EXAMINER Work Phone: [facility] 06-05-2024 13:09-0400 Body mass index (BMI) [Ratio] 19.04 kg/m2 Rito Camp MD Work Phone: [facility] 06-05-2024 13:09-0400 Body weight 39.92 kg Rito Camp MD Work Phone: [facility] 06-05-2024 13:09-0400 Diastolic blood pressure 86 mm[Hg] Rito Camp MD Work Phone: [facility] 06-05-2024 13:09-0400 Heart rate 82 /min Rito Camp MD Work Phone: [facility] 06-05-2024 13:09-0400 Respiratory rate 16 /min Rito Camp MD Work Phone: [facility] 06-05-2024 13:09-0400 Systolic blood pressure 132 mm[Hg] Rito Camp MD Work Phone: [facility] 06-03-2024 09:58-0400 Body mass index (BMI) [Ratio] 19.37 kg/m2 Mary Ann Dukes MARKETER.MERCHANDISE EXAMINER Work Phone: [facility] 06-03-2024 09:58-0400 Body temperature 98.49 [degF] Mary Ann Dukes MARKETER.MERCHANDISE EXAMINER Work Phone: [facility] 06-03-2024 09:58-0400 Body weight 40.6 kg Mary Ann Dukes MARKETER.MERCHANDISE EXAMINER Work Phone: [facility] 06-03-2024 09:58-0400 Diastolic blood pressure 88 mm[Hg] Mary Ann Dukes MARKETER.MERCHANDISE EXAMINER Work Phone: [facility] 06-03-2024 09:58-0400 Heart rate 85 /min Mary Ann Dukes MARKETER.MERCHANDISE EXAMINER Work Phone: [facility] 06-03-2024 09:58-0400 Respiratory rate 20 /min Mary Ann Dukes MARKETER.MERCHANDISE EXAMINER Work Phone: [facility] 06-03-2024 09:58-0400 SaO2% (BldA) [Mass fraction] 94 % Mary Ann Dukes MARKETER.MERCHANDISE EXAMINER Work Phone: [facility] 06-03-2024 09:58-0400 Systolic blood pressure 142 mm[Hg] Mary Ann Dukes MARKETER.MERCHANDISE EXAMINER Work Phone: [facility] 04-14-2024 09:51-0400 Body mass index (BMI) [Ratio] 19.26 kg/m2 Alex Brown MARKETER.MERCHANDISE EXAMINER Work Phone: [facility] 04-14-2024 09:51-0400 Body weight 40.37 kg Alex Brown MARKETER.MERCHANDISE EXAMINER Work Phone: [facility] 04-14-2024 09:51-0400 Diastolic blood pressure 73 mm[Hg] Alex Brown MARKETER.MERCHANDISE EXAMINER Work Phone: [facility] 04-14-2024 09:51-0400 Heart rate 98 /min Alex Brown MARKETER.MERCHANDISE EXAMINER Work Phone: [facility] 04-14-2024 09:51-0400 Respiratory rate 14 /min Alex Brown MARKETER.MERCHANDISE EXAMINER Work Phone: [facility] 04-14-2024 09:51-0400 Systolic blood pressure 143 mm[Hg] Alex Brown MARKETER.MERCHANDISE EXAMINER Work Phone: [facility] 03-26-2024 11:33-0400 Body mass index (BMI) [Ratio] 19.69 kg/m2 Alex Brown MARKETER.MERCHANDISE EXAMINER Work Phone: [facility] 03-26-2024 11:33-0400 Body weight 41.28 kg Alex Brown MARKETER.MERCHANDISE EXAMINER Work Phone: [facility] 03-26-2024 11:33-0400 Diastolic blood pressure 86 mm[Hg] Alex Brown MARKETER.MERCHANDISE EXAMINER Work Phone: [facility] 03-26-2024 11:33-0400 Heart rate 92 /min Alex Brown MARKETER.MERCHANDISE EXAMINER Work Phone: [facility] 03-26-2024 11:33-0400 Respiratory rate 14 /min Alex Brown MARKETER.MERCHANDISE EXAMINER Work Phone: [facility] 03-26-2024 11:33-0400 Systolic blood pressure 150 mm[Hg] Alex Brown MARKETER.MERCHANDISE EXAMINER Work Phone: [facility] 03-18-2024 10:42-0400 Body mass index (BMI) [Ratio] 19.91 kg/m2 Sweetie Romeo MARKETER.MERCHANDISE EXAMINER Work Phone: [facility] 03-18-2024 10:42-0400 Body temperature 98.91 [degF] Sweetie Romeo MARKETER.MERCHANDISE EXAMINER Work Phone: [facility] 03-18-2024 10:42-0400 Body weight 41.73 kg Sweetie Podlogar MARKETER.MERCHANDISE EXAMINER Work Phone: [facility] 03-18-2024 10:42-0400 Diastolic blood pressure 76 mm[Hg] Sweetie Podlogar MARKETER.MERCHANDISE EXAMINER Work Phone: [facility] 03-18-2024 10:42-0400 Heart rate 79 /min Sweetie Podlogar MARKETER.MERCHANDISE EXAMINER Work Phone: [facility] 03-18-2024 10:42-0400 Respiratory rate 18 /min Sweetie Podlogar MARKETER.MERCHANDISE EXAMINER Work Phone: [facility] 03-18-2024 10:42-0400 SaO2% (BldA) [Mass fraction] 94 % Sweetie Podlogar MARKETER.MERCHANDISE EXAMINER Work Phone: [facility] 03-18-2024 10:42-0400 Systolic blood pressure 142 mm[Hg] Sweetie Podlogar MARKETER.MERCHANDISE EXAMINER Work Phone: [facility] 01-01-2024 07:45-0400 Body height 144.[address] Rito Camp Work Phone: [facility] 01-01-2024 07:45-0400 Body mass index (BMI) [Ratio] 19.5 kg/m2 Dr. Rito Camp Work Phone: [facility] 01-01-2024 07:45-0400 Body temperature 96.9 [degF] Dr. Rito Camp Work Phone: [facility] 01-01-2024 07:45-0400 Body weight 40.[address] Rito Camp Work Phone: [facility] 01-01-2024 07:45-0400 Diastolic blood pressure 77 mm[Hg] Dr. Rito Camp Work Phone: [facility] 01-01-2024 07:45-0400 Heart rate 90 /min Dr. Rito Camp Work Phone: [facility] 01-01-2024 07:45-0400 Respiratory rate 20 /min Dr. Rito Camp Work Phone: [facility] 01-01-2024 07:45-0400 SaO2% (BldA) [Mass fraction] 95 % Dr. Rito Camp Work Phone: [facility] 01-01-2024 07:45-0400 Systolic blood pressure 135 mm[Hg] Dr. Rito Camp Work Phone: [facility] 12-23-2023 09:58-0400 Body mass index (BMI) [Ratio] 19.75 kg/m2 Mary Ann Dukes MARKETER.MERCHANDISE EXAMINER Work Phone: [facility] 12-23-2023 09:58-0400 Body temperature 99.1 [degF] Mary Ann Dukes MARKETER.MERCHANDISE EXAMINER Work Phone: [facility] 12-23-2023 09:58-0400 Body weight 41.4 kg Marya Nn Dukes MARKETER.MERCHANDISE EXAMINER Work Phone: [facility] 12-23-2023 09:58-0400 Diastolic blood pressure 86 mm[Hg] Mary Ann Dukes MARKETER.MERCHANDISE EXAMINER Work Phone: [facility] 12-23-2023 09:58-0400 Heart rate 105 /min Mary Ann Dukes MARKETER.MERCHANDISE EXAMINER Work Phone: [facility] 12-23-2023 09:58-0400 Respiratory rate 21 /min Mary Ann Dukes MARKETER.MERCHANDISE EXAMINER Work Phone: [facility] 12-23-2023 09:58-0400 SaO2% (BldA) [Mass fraction] 93 % Mary Ann Dukes MARKETER.MERCHANDISE EXAMINER Work Phone: [facility] 12-23-2023 09:58-0400 Systolic blood pressure 122 mm[Hg] Mary Ann Dukes MARKETER.MERCHANDISE EXAMINER Work Phone: [facility] 12-22-2023 10:22-0400 Body temperature 98.91 [degF] Teresa Athy PA-C Work Phone: [facility] 12-22-2023 10:22-0400 Body weight 41 kg Teresa Athy PA-C Work Phone: [facility] 12-22-2023 10:22-0400 Diastolic blood pressure 78 mm[Hg] Teresa Athy PA-C Work Phone: [facility] 12-22-2023 10:22-0400 Heart rate 96 /min Teresa Athy PA-C Work Phone: [facility] 12-22-2023 10:22-0400 Respiratory rate 22 /min Teresa Athy PA-C Work Phone: [facility] 12-22-2023 10:22-0400 SaO2% (BldA) [Mass fraction] 96 % Teresa Athy PA-C Work Phone: [facility] 12-22-2023 10:22-0400 Systolic blood pressure 131 mm[Hg] Teresa Athy PA-C Work Phone: [facility] 10-15-2023 08:43-0500 Body temperature 98.01 [degF] Shanita Green PA-C Work Phone: [facility] 10-15-2023 08:43-0500 Body weight 42.19 kg Shanita Green PA-C Work Phone: [facility] 10-15-2023 08:43-0500 Diastolic blood pressure 80 mm[Hg] Shanita Green PA-C Work Phone: [facility] 10-15-2023 08:43-0500 Heart rate 110 /min Shanita Green PA-C Work Phone: [facility] 10-15-2023 08:43-0500 Respiratory rate 16 /min Shanita Green PA-C Work Phone: [facility] 10-15-2023 08:43-0500 Systolic blood pressure 122 mm[Hg] Shanita Green PA-C Work Phone: [facility] 06-11-2023 09:23-0400 Body height 144.8 cm Toi Falcon MD Work Phone: [facility] 06-11-2023 09:23-0400 Body temperature 97.3 [degF] Toi Falcon MD Work Phone: [facility] 06-11-2023 09:23-0400 Body weight 39.46 kg Toi Falcon MD Work Phone: [facility] 06-11-2023 09:23-0400 Diastolic blood pressure 72 mm[Hg] Toi Falcon MD Work Phone: [facility] 06-11-2023 09:23-0400 Heart rate 94 /min Toi Falcon MD Work Phone: [facility] 06-11-2023 09:23-0400 SaO2% (BldA) [Mass fraction] 94 % Toi Falcon MD Work Phone: [facility] 06-11-2023 09:23-0400 Systolic blood pressure 112 mm[Hg] Toi Falcon MD Work Phone: [facility] 06-08-2023 11:16-0400 Diastolic blood pressure 80 mm[Hg] Rito Camp MD Work Phone: [facility] 06-08-2023 11:16-0400 Systolic blood pressure 154 mm[Hg] Rito Camp MD Work Phone: [facility] 06-08-2023 10:43-0400 Body temperature 98.91 [degF] Rito Camp MD Work Phone: [facility] 06-08-2023 10:43-0400 Body weight 40.82 kg Rito Camp MD Work Phone: [facility] 06-08-2023 10:43-0400 Heart rate 97 /min Rito Camp MD Work Phone: [facility] 06-08-2023 10:43-0400 Respiratory rate 18 /min Rito Camp MD Work Phone: [facility] 06-08-2023 10:43-0400 SaO2% (BldA) [Mass fraction] 95 % Rito Camp MD Work Phone: [facility] 06-04-2023 10:46-0400 Body weight 39.92 kg Alex Brown MARKETER.MERCHANDISE EXAMINER Work Phone: [facility] 06-04-2023 10:46-0400 Diastolic blood pressure 80 mm[Hg] Alex Brown MARKETER.MERCHANDISE EXAMINER Work Phone: [facility] 06-04-2023 10:46-0400 Heart rate 104 /min Alex Brown MARKETER.MERCHANDISE EXAMINER Work Phone: [facility] 06-04-2023 10:46-0400 Respiratory rate 14 /min Alex Brown MARKETER.MERCHANDISE EXAMINER Work Phone: [facility] 06-04-2023 10:46-0400 Systolic blood pressure 118 mm[Hg] Alex Brown MARKETER.MERCHANDISE EXAMINER Work Phone: [facility] 06-02-2023 13:45-0400 Body temperature 98.5 [degF] Dr. Rito Camp Work Phone: [facility] 06-02-2023 13:45-0400 Diastolic blood pressure 82 mm[Hg] Dr. Rito Camp Work Phone: 8(299)757-644177 [place] [address] 06-02-2023 13:45-0400 Heart rate 98 /min Dr. Rito Camp Work Phone: [facility] 06-02-2023 13:45-0400 Respiratory rate 18 /min Dr. Rito Camp Work Phone: [facility] 06-02-2023 13:45-0400 SaO2% (BldA) [Mass fraction] 95 % Dr. Rito Camp Work Phone: [facility] 06-02-2023 13:45-0400 Systolic blood pressure 135 mm[Hg] Dr. Rito Camp Work Phone: 5(707)595-031077 [place] [address] 06-01-2023 11:41-0400 Body height 144.[address] Rito Camp Work Phone: 0(872)171-704977 [place] [address] 06-01-2023 11:41-0400 Body weight 40.[address] Rito Camp Work Phone: 1(815)883-880229 [place] [address] 06-01-2023 02:55-0400 Body mass index (BMI) [Ratio] 19.2 kg/m2 Dr. Rito Camp Work Phone: 0(271)949-172229 [place] [address] 06-01-2023 01:29-0400 Body temperature 99 [degF] Dr. Rito Camp Work Phone: 7(046)416-271029 [place] [address] 06-01-2023 01:29-0400 Diastolic blood pressure 93 mm[Hg] Dr. Rito Camp Work Phone: 7(781)491-157929 [place] [address] 06-01-2023 01:29-0400 Heart rate 91 /min Dr. Rito Camp Work Phone: 0(973)652-481577 [place] [address] 06-01-2023 01:29-0400 Respiratory rate 18 /min Dr. Rito Camp Work Phone: 6(826)576-034929 [place] [address] 06-01-2023 01:29-0400 SaO2% (BldA) [Mass fraction] 92 % Dr. Rito Camp Work Phone: 8(213)339-103915 [address] 06-01-2023 01:29-0400 Systolic blood pressure 150 mm[Hg] Dr. Rito Camp Work Phone: 6(583)683-442777 [place] [address] 05-31-2023 21:50-0400 Body height 147.[address] Rito Camp Work Phone: 6(935)129-906915 [address] 05-31-2023 21:50-0400 Body mass index (BMI) [Ratio] 19.2 kg/m2 Dr. Rito Camp Work Phone: 9(442)112-224177 [place] [address] 05-31-2023 21:50-0400 Body weight 41.[address] Rito Camp Work Phone: 8(299)864-287577 [place] [address] 04-17-2023 08:02-0400 Body mass index (BMI) [Ratio] 19 kg/m2 Dr. Rito Camp Work Phone: 5(214)358-156729 [place] [address] 04-17-2023 08:02-0400 Body temperature 97.5 [degF] Dr. Rito Camp Work Phone: 0(545)335-235729 [place] [address] 04-17-2023 08:02-0400 Body weight 39.[address] Rito Camp Work Phone: 9(236)463-791429 [place] [address] 04-17-2023 08:02-0400 Diastolic blood pressure 80 mm[Hg] Dr. Rito Camp Work Phone: 0(890)670-994429 [place] [address] 04-17-2023 08:02-0400 Heart rate 79 /min Dr. Rito Camp Work Phone: 6(100)591-613329 [place] [address] 04-17-2023 08:02-0400 Respiratory rate 18 /min Dr. Rito Camp Work Phone: 5(335)768-208729 [place] [address] 04-17-2023 08:02-0400 SaO2% (BldA) [Mass fraction] 96 % Dr. Rito Camp Work Phone: 9(411)378-838029 [place] [address] 04-17-2023 08:02-0400 Systolic blood pressure 135 mm[Hg] Dr. Rito Camp Work Phone: 2(602)646-199629 [place] [address] 02-25-2023 09:26-0400 Body mass index (BMI) [Ratio] 19.3 kg/m2 Dr. Rito Camp Work Phone: 1(443)329-341929 [place] [address] 02-25-2023 09:26-0400 Body temperature 98.4 [degF] Dr. Rito Camp Work Phone: 7(811)766-633529 [place] [address] 02-25-2023 09:26-0400 Body weight 40.[address] Rito Camp Work Phone: 1(125)623-027229 [place] [address] 02-25-2023 09:26-0400 Diastolic blood pressure 80 mm[Hg] Dr. Rito Camp Work Phone: 5(078)101-699729 [place] [address] 02-25-2023 09:26-0400 Heart rate 86 /min Dr. Rito Camp Work Phone: [facility] 02-25-2023 09:26-0400 Respiratory rate 16 /min Dr. Rito Camp Work Phone: [facility] 02-25-2023 09:26-0400 SaO2% (BldA) [Mass fraction] 94 % Dr. Rito Camp Work Phone: [facility] 02-25-2023 09:26-0400 Systolic blood pressure 130 mm[Hg] Dr. Rito Camp Work Phone: [facility] 02-20-2023 09:09-0400 Diastolic blood pressure 83 mm[Hg] Shanita Green PA-C Work Phone: [facility] 02-20-2023 09:09-0400 Heart rate 85 /min Shanita Green PA-C Work Phone: [facility] 02-20-2023 09:09-0400 Systolic blood pressure 130 mm[Hg] Shanita Green PA-C Work Phone: [facility] 02-20-2023 08:20-0400 Body temperature 98.1 [degF] Shanita Green PA-C Work Phone: [facility] 02-20-2023 08:20-0400 Respiratory rate 16 /min Shanita Green PA-C Work Phone: [facility] 02-15-2023 09:31-0400 Body temperature 98.8 [degF] Alex Brown APRN.MERCHANDISE EXAMINER Work Phone: [facility] 02-15-2023 09:31-0400 Body weight 40.46 kg Alex Brown APRN.MERCHANDISE EXAMINER Work Phone: [facility] 02-15-2023 09:31-0400 Diastolic blood pressure 82 mm[Hg] Alex Brown APRN.MERCHANDISE EXAMINER Work Phone: [facility] 02-15-2023 09:31-0400 Heart rate 98 /min Alex Brown APRN.MERCHANDISE EXAMINER Work Phone: [facility] 02-15-2023 09:31-0400 Respiratory rate 20 /min Alex Brown MARKETER.MERCHANDISE EXAMINER Work Phone: [facility] 02-15-2023 09:31-0400 SaO2% (BldA) [Mass fraction] 97 % Alex Brown MARKETER.MERCHANDISE EXAMINER Work Phone: [facility] 02-15-2023 09:31-0400 Systolic blood pressure 128 mm[Hg] Alex Brown MARKETER.MERCHANDISE EXAMINER Work Phone: [facility] 02-13-2023 00:12-0400 Diastolic blood pressure 96 mm[Hg] Dr. Rito Camp Work Phone: [facility] 02-13-2023 00:12-0400 Systolic blood pressure 148 mm[Hg] Dr. Rito Camp Work Phone: [facility] 02-12-2023 21:58-0400 Body mass index (BMI) [Ratio] 20.9 kg/m2 Dr. Rito Camp Work Phone: [facility] 02-12-2023 21:58-0400 Body temperature 97.3 [degF] Dr. Rito Camp Work Phone: [facility] 02-12-2023 21:58-0400 Body weight 43.[address] Rito Camp Work Phone: [facility] 02-12-2023 21:58-0400 Heart rate 120 /min Dr. Rito Camp Work Phone: [facility] 02-12-2023 21:58-0400 Respiratory rate 16 /min Dr. Rito Camp Work Phone: [facility] 02-12-2023 21:58-0400 SaO2% (BldA) [Mass fraction] 92 % Dr. Rito Camp Work Phone: [facility] 11-19-2022 10:01-0400 Body weight 40.37 kg Rito Camp MD Work Phone: [facility] 11-19-2022 10:01-0400 Diastolic blood pressure 82 mm[Hg] Rito Camp MD Work Phone: [facility] 11-19-2022 10:01-0400 Heart rate 76 /min Rito Camp MD Work Phone: [facility] 11-19-2022 10:01-0400 Respiratory rate 18 /min Rito Camp MD Work Phone: [facility] 11-19-2022 10:01-0400 Systolic blood pressure 122 mm[Hg] Rito Camp MD Work Phone: [facility] 09-27-2022 09:52-0500 Body height 144.8 cm Rito Camp MD Work Phone: [facility] 09-27-2022 09:52-0500 Body weight 42.19 kg Rito Camp MD Work Phone: [facility] 09-27-2022 09:52-0500 Diastolic blood pressure 80 mm[Hg] Rito Camp MD Work Phone: [facility] 09-27-2022 09:52-0500 Heart rate 82 /min Rito Camp MD Work Phone: [facility] 09-27-2022 09:52-0500 Respiratory rate 18 /min Rito Camp MD Work Phone: [facility] 09-27-2022 09:52-0500 Systolic blood pressure 130 mm[Hg] Rito Camp MD Work Phone: [facility] 07-31-2022 09:32-0500 Body height 144.8 cm Ashleigh Negrete APRN.MERCHANDISE EXAMINER Work Phone: [facility] 07-31-2022 09:32-0500 Body weight 42.64 kg Ashleigh Negrete APRN.MERCHANDISE EXAMINER Work Phone: [facility] 07-31-2022 09:32-0500 Diastolic blood pressure 68 mm[Hg] Ashleigh Negrete MARKETER.MERCHANDISE EXAMINER Work Phone: [facility] 07-31-2022 09:32-0500 Systolic blood pressure 100 mm[Hg] Ashleigh Negrete MARKETER.MERCHANDISE EXAMINER Work Phone: [facility] 07-09-2022 10:42-0500 Body temperature 98.91 [degF] Sweetie Podlogar MARKETER.MERCHANDISE EXAMINER Work Phone: [facility] 07-09-2022 10:42-0500 Diastolic blood pressure 72 mm[Hg] Sweteie Podlogar MARKETER.MERCHANDISE EXAMINER Work Phone: [facility] 07-09-2022 10:42-0500 Heart rate 91 /min Sweetie Podlogar MARKETER.MERCHANDISE EXAMINER Work Phone: [facility] 07-09-2022 10:42-0500 Respiratory rate 20 /min Sweetie Podlogar MARKETER.MERCHANDISE EXAMINER Work Phone: [facility] 07-09-2022 10:42-0500 SaO2% (BldA) [Mass fraction] 97 % Sweetie Podlogar MARKETER.MERCHANDISE EXAMINER Work Phone: [facility] 07-09-2022 10:42-0500 Systolic blood pressure 128 mm[Hg] Sweetie Podlogar MARKETER.MERCHANDISE EXAMINER Work Phone: [facility] 07-04-2022 09:42-0400 Body temperature 99.19 [degF] Rito Sheirdan MARKETER.MERCHANDISE EXAMINER Work Phone: [facility] 07-04-2022 09:42-0400 Body weight 42.27 kg Rito Sheridan MARKETER.MERCHANDISE EXAMINER Work Phone: [facility] 07-04-2022 09:42-0400 Diastolic blood pressure 86 mm[Hg] Rito Sheridan MARKETER.MERCHANDISE EXAMINER Work Phone: [facility] 07-04-2022 09:42-0400 Heart rate 95 /min Rito Sheridan MARKETER.MERCHANDISE EXAMINER Work Phone: [facility] 07-04-2022 09:42-0400 Respiratory rate 20 /min Rito Sheridan APRN.MERCHANDISE EXAMINER Work Phone: [facility] 07-04-2022 09:42-0400 SaO2% (BldA) [Mass fraction] 98 % Rito Sheridan MARKETER.MERCHANDISE EXAMINER Work Phone: [facility] 07-04-2022 09:42-0400 Systolic blood pressure 132 mm[Hg] Rito Sheridan MARKETER.MERCHANDISE EXAMINER Work Phone: [facility] 05-28-2022 10:18-0400 Body temperature 98.1 [degF] Shanita Green PA-C Work Phone: [facility] 05-28-2022 10:18-0400 Body weight 41.73 kg Shanita Green PA-C Work Phone: [facility] 05-28-2022 10:18-0400 Diastolic blood pressure 68 mm[Hg] Shanita Green PA-C Work Phone: [facility] 05-28-2022 10:18-0400 Heart rate 76 /min Shanita Green PA-C Work Phone: [facility] 05-28-2022 10:18-0400 Respiratory rate 16 /min Shanita Green PA-C Work Phone: [facility] 05-28-2022 10:18-0400 Systolic blood pressure 94 mm[Hg] Shanita Green PA-C Work Phone: [facility] 04-16-2022 06:37-0400 Body height 144.[address] Rito Camp Work Phone: [facility] Work Phone: 04-16-2022 06:37-0400 Body mass index (BMI) [Ratio] 20.3 kg/m2 Dr. Rito Camp Work Phone: [facility] Work Phone: 04-16-2022 06:37-0400 Body temperature 97.8 [degF] Dr. Rito Camp Work Phone: [facility] Work Phone: 04-16-2022 06:37-0400 Body weight 42.[address] Rito [employer]mp Work Phone: [facility] Work Phone: 04-16-2022 06:37-0400 Diastolic blood pressure 75 mm[Hg] Dr. Rito Camp Work Phone: [facility] Work Phone: 04-16-2022 06:37-0400 Heart rate 78 /min Dr. Rito Camp Work Phone: [facility] Work Phone: 04-16-2022 06:37-0400 Respiratory rate 16 /min Dr. Rito Camp Work Phone: [facility] Work Phone: 04-16-2022 06:37-0400 SaO2% (BldA) [Mass fraction] 93 % Dr. Rito Camp Work Phone: [facility] Work Phone: 04-16-2022 06:37-0400 Systolic blood pressure 118 mm[Hg] Dr. Rito Camp Work Phone: [facility] Work Phone: 03-23-2022 07:44-0400 Body temperature 99 [degF] Shanita Green PA-C Work Phone: [facility] 03-23-2022 07:44-0400 Body weight 42.64 kg Shanita Green PA-C Work Phone: [facility] 03-23-2022 07:44-0400 Diastolic blood pressure 68 mm[Hg] Shanita Green PA-C Work Phone: [facility] 03-23-2022 07:44-0400 Heart rate 72 /min Shanita Green PA-C Work Phone: [facility] 03-23-2022 07:44-0400 Respiratory rate 16 /min Shanita Green PA-C Work Phone: [facility] 03-23-2022 07:44-0400 Systolic blood pressure 100 mm[Hg] Shanita Green PA-C Work Phone: [facility] 03-18-2022 15:30-0400 Body temperature 97.1 [degF] Dr. Rito Camp Work Phone: [facility] Work Phone: 03-18-2022 15:30-0400 Diastolic blood pressure 84 mm[Hg] Dr. Rito Camp Work Phone: [facility] Work Phone: 03-18-2022 15:30-0400 Heart rate 92 /min Dr. Rito Camp Work Phone: [facility] Work Phone: 03-18-2022 15:30-0400 Respiratory rate 18 /min Dr. Rito Camp Work Phone: [facility] Work Phone: 03-18-2022 15:30-0400 SaO2% (BldA) [Mass fraction] 96 % Dr. Rito Camp Work Phone: [facility] Work Phone: 03-18-2022 15:30-0400 Systolic blood pressure 140 mm[Hg] Dr. Rito Camp Work Phone: [facility] Work Phone: 03-18-2022 06:00-0400 Body weight 42.[address] Rito Camp Work Phone: [facility] Work Phone: 03-17-2022 22:51-0400 Body height 144.[address] Rito Camp Work Phone: [facility] Work Phone: 03-17-2022 22:51-0400 Body mass index (BMI) [Ratio] 20.1 kg/m2 Dr. Rito Camp Work Phone: [facility] Work Phone: 03-17-2022 21:48-0400 Body temperature 98.8 [degF] Dr. Rito Camp Work Phone: [facility] Work Phone: 03-17-2022 21:48-0400 Diastolic blood pressure 89 mm[Hg] Dr. Rito Camp Work Phone: [facility] Work Phone: 03-17-2022 21:48-0400 Heart rate 95 /min Dr. Rito Camp Work Phone: [facility] Work Phone: 03-17-2022 21:48-0400 Respiratory rate 18 /min Dr. Rito Camp Work Phone: [facility] Work Phone: 03-17-2022 21:48-0400 SaO2% (BldA) [Mass fraction] 95 % Dr. Rito Camp Work Phone: [facility] Work Phone: 03-17-2022 21:48-0400 Systolic blood pressure 160 mm[Hg] Dr. Rito Camp Work Phone: [facility] Work Phone: 03-17-2022 17:25-0400 Body height 144.[address] Rito Camp Work Phone: [facility] Work Phone: 03-17-2022 17:25-0400 Body mass index (BMI) [Ratio] 20.5 kg/m2 Dr. Rito Camp Work Phone: [facility] Work Phone: 03-17-2022 17:25-0400 Body weight 43.[address] Rito Camp Work Phone: [facility] Work Phone: 03-14-2022 10:14-0400 Body temperature 98.29 [degF] Bernard Elliott MD Work Phone: [facility] 03-14-2022 10:14-0400 Body weight 43.55 kg Bernard Elliott MD Work Phone: [facility] 03-14-2022 10:14-0400 Diastolic blood pressure 60 mm[Hg] Bernard Elliott MD Work Phone: [facility] 03-14-2022 10:14-0400 Heart rate 88 /min Bernard Elliott MD Work Phone: [facility] 03-14-2022 10:14-0400 Respiratory rate 16 /min Bernard Elliott MD Work Phone: [facility] 03-14-2022 10:14-0400 SaO2% (BldA) [Mass fraction] 96 % Bernard Elliott MD Work Phone: [facility] 03-14-2022 10:14-0400 Systolic blood pressure 122 mm[Hg] Bernard Elliott MD Work Phone: [facility] 01-10-2022 09:47-0400 Body temperature 98.49 [degF] Shanna Newton APRN.MERCHANDISE EXAMINER Work Phone: [facility] 01-10-2022 09:47-0400 Body weight 43.18 kg Shanna Newton APRN.MERCHANDISE EXAMINER Work Phone: [facility] 01-10-2022 09:47-0400 Diastolic blood pressure 80 mm[Hg] Shanna Newton APRN.MERCHANDISE EXAMINER Work Phone: [facility] 01-10-2022 09:47-0400 Heart rate 84 /min Shanna Newton APRN.MERCHANDISE EXAMINER Work Phone: [facility] 01-10-2022 09:47-0400 Respiratory rate 18 /min Shanna Newton APRN.MERCHANDISE EXAMINER Work Phone: [facility] 01-10-2022 09:47-0400 SaO2% (BldA) [Mass fraction] 97 % Shanna Newton APRN.MERCHANDISE EXAMINER Work Phone: [facility] 01-10-2022 09:47-0400 Systolic blood pressure 132 mm[Hg] Shanna Newton APRN.MERCHANDISE EXAMINER Work Phone: [facility] 12-19-2021 10:28-0400 Body temperature 98.8 [degF] Shanita Green PA-C Work Phone: [facility] 12-19-2021 10:28-0400 Body weight 44.27 kg Shanita Green PA-C Work Phone: [facility] 12-19-2021 10:28-0400 Diastolic blood pressure 60 mm[Hg] Shanita Green PA-C Work Phone: [facility] 12-19-2021 10:28-0400 Heart rate 63 /min Shanitajonelle Green PA-C Work Phone: [facility] 12-19-2021 10:28-0400 Respiratory rate 18 /min Shanita Green PA-C Work Phone: [facility] 12-19-2021 10:28-0400 Systolic blood pressure 104 mm[Hg] Shanita Green PA-C Work Phone: [facility] Encounters Encounter Date Encounter Type Care Provider Facility Start: 07-06-2025 End: 07-06-2025 ambulatory RITO CAMP Facility:[facility] Start: 07-05-2025 ambulatory RITO Wang ty:[facility] Start: 06-08-2025 End: 06-08-[address] Pieter Camacho MD -[facility] Start: 06-08-2025 End: 06-08-[address] Rito Camp MD Work Phone: -[facility] Start: 05-27-2025 End: 05-27-2025 ambulatory RITO CAMP Facility:[facility] Start: 05-24-2025 ambulatory RITO Wang ty:[facility] Start: 05-16-2025 End: 05-16-2025 Subsequent hospital visit by physician Eden [facility] [place] Work Phone: Radiology Comment on above: Injury of right wris t, initial encounter [S69.91XA] Start: 05-16-2025 End: 05-16-2025 Patient encounter procedure Ky Shaver MARKETER.MERCHANDISE EXAMINER Work Phone: [facility] [place] Comment on above: Injury of right wris t, initial encounter (Primary Dx) Start: 05-16-2025 End: 05-16-2025 ambulatory [place] SHAVER Facility:[facility] Start: 05-14-2025 End: 05-14-2025 Telephone encounter Rito Camp MD Work Phone: [facility] [place] Comment on above: Insurance Authorizat ion Start: 05-14-2025 End: 05-14-2025 Patient encounter procedure Alex Brown MARKETER.MERCHANDISE EXAMINER Work Phone: [facility] [place] Comment on above: Lumbar radiculopathy (Primary Dx); Lumbar back pain; Radiculopathy of lumbar region Start: 05-14-2025 End: 05-14-2025 ambulatory RITO CAMP Facility:[facility] Start: 05-11-2025 End: 05-11-2025 Refill Rito Camp MD Work Phone: [facility] [place] Comment on above: Refill Request Start: 05-10-2025 End: 05-10-[address] Rito Camp MD Work Phone: -Laboratory Specimen Start: 05-10-2025 End: 05-10-2025 Patient encounter procedure Angella AVILES -Laboratory Specimen Work Phone: Start: 05-10-2025 End: 05-10-2025 ambulatory Rito Camp Facility:[facility] Start: 05-07-2025 End: 05-07-2025 Chart abstracting Rito Camp MD Work Phone: [facility] [place] Comment on above: Abstract ([facility] rehab evaluation) Start: 05-06-2025 Registered Recurring Angella AVILES -Physical Therapy Work Phone: Start: 05-06-2025 ambulatory Rito Camp Facility :[facility] Start: 05-04-2025 End: 05-04-2025 Office outpatient visit 15 minutes Shanita Green PA-C Work Phone: [facility] [place] Comment on above: Lumbar radiculopathy (Primary Dx); Lumbar back pain; Radiculopathy of lumbar region Start: 05-04-2025 End: 05-04-2025 ambulatory RITO CAMP Facility:[facility] Start: 04-20-2025 End: 04-20-2025 Patient encounter procedure Angella AVILES -[facility] Work Phone: Start: 04-20-2025 End: 04-20-[address] Rito Camp MD Work Phone: -[facility] Start: 04-05-2025 End: 04-05-2025 Telephone encounter Shanita Green PA-C Work Phone: [facility] [place] Comment on above: Medication Problem Start: 03-31-2025 End: 03-31-2025 Chart abstracting Rito Camp MD Work Phone: [facility] [place] Comment on above: Abstract (GI Procedu re and GI OV note - Dr. Gill) Start: 03-31-2025 Non-patient / Non-visit Robe Garrett nd DO -[facility] Start: 03-31-2025 End: 03-31-2025 Admission to same day surgery center Robe Gill DO -Endoscopy Work Phone: Start: 03-31-2025 End: 03-31-[address] Rito Camp MD Work Phone: -Endoscopy Start: 03-22-2025 End: 03-22-2025 Refill Rito Camp MD Work Phone: [facility] [place] Comment on above: Refill Request Start: 03-18-2025 End: 03-26-2025 Follow-up encounter Shanita Green PA-C Work Phone: [facility] [place] Start: 03-17-2025 End: 03-17-2025 Telephone encounter Rito Camp MD Work Phone: [facility] [place] Comment on above: Insurance Authorizat ion Start: 03-15-2025 End: 03-15-2025 Office outpatient visit 25 minutes Shanita Green PA-C Work Phone: [facility] [place] Comment on above: Psychophysiological insomnia (Primary Dx); Easy bruising; Lumbar radiculopathy Start: 03-15-2025 End: 03-15-2025 ambulatory SHANITA GREEN Facility:[facility] Start: 03-02-2025 Non-patient / Non-visit Dr. Kota Shore MD -[facility] Work Phone: Start: 02-09-2025 End: 02-09-2025 Patient encounter procedure HOLTER TECHNICIAN Letha Emery -[facility] Work Phone: Start: 02-09-2025 End: 02-09-[address] Rito Camp MD Work Phone: [facility] Work Phone: Start: 01-21-2025 End: 01-21-2025 ambulatory RITO CAMP Facility:[facility] Start: 01-05-2025 End: 01-05-2025 Follow-up encounter Shanita Green PA-C Work Phone: [facility] [place] Start: 01-05-2025 End: 01-05-2025 Subsequent hospital visit by physician Xr [facility] [place] Work Phone: Radiology Comment on above: Injury of right toe, initial encounter [S99.921A] Start: 01-05-2025 End: 01-05-2025 Office outpatient visit 25 minutes Shanita Green PA-C Work Phone: [facility] [place] Comment on above: Injury of right toe, initial encounter (Primary Dx); Psychophysiological insomnia; Ectatic thoracic aorta Start: 01-05-2025 End: 01-05-2025 ambulatory RITO CAMP Facility:[facility] Start: 01-04-2025 End: 01-04-2025 Chart abstracting Rito Camp MD Work Phone: [facility] [place] Comment on above: Outside Imaging (CT) Start: 01-01-2025 End: 01-01-[address] Rito Camp MD Work Phone: [facility] Work Phone: Start: 01-01-2025 End: 01-01-2025 Patient encounter procedure Sierra AVILES -Cat Scan, [facility] Work Phone: Start: 01-01-2025 End: 01-01-2025 ambulatory Rito Camp Facility:[facility] Start: 12-28-2024 End: 12-29-2024 Follow-up encounter Rito Camp MD Work Phone: [facility] Start: 12-28-2024 ambulatory RITO CAMP Facili ty:[facility] Start: 12-28-2024 End: 12-28-2024 Subsequent hospital visit by physician Bone Density [facility] Work Phone: Radiology Comment on above: Osteoporosis, unspec ified osteoporosis type, unspecified pathological fracture presence [M81.0] Start: 12-17-2024 End: 12-17-2024 Patient encounter procedure Angella Cueto HOLTER TECHNICIANErnieC -[facility] Work Phone: Start: 12-17-2024 End: 12-17-2024 ambulatory Rito Camp Facility:[facility] Start: 12-02-2024 End: 12-04-2024 Telephone encounter Aury Newton MA [facility] Comment on above: Results Start: 12-01-2024 End: 12-18-2024 Telephone encounter Alex Brown APRN.CNP Work Phone: [facility] Comment on above: Patient Question Start: 11-30-2024 End: 11-30-2024 Refill Rito Camp MD Work Phone: [facility] Comment on above: Refill Request Start: 11-25-2024 End: 11-25-[address] Rito Camp MD Work Phone: [facility] Work Phone: Start: 11-25-2024 End: 11-25-[address] Rito Camp MD -Speech Therapy Work Phone: Start: 11-25-[address] Leonard Camp MD -Speech Therapy Work Phone: Start: 11-24-2024 End: 11-24-[address] Rito Camp MD Work Phone: [facility] Work Phone: Start: 11-24-2024 End: 11-24-[address] Rito Camp MD -Radiology, [facility] Work Phone: Start: 11-24-2024 End: 11-24-2024 ambulatory Rito Camp Facility:[facility] Start: 11-10-2024 End: 11-10-2024 Chart abstracting Rito Camp MD Work Phone: [facility] Comment on above: Outside Anesthesia/P ain Start: 11-09-2024 End: 11-09-2024 Refill Rito Camp MD Work Phone: OB/Gynecology Comment on above: Refill Request Start: 11-05-2024 End: 11-05-2024 ambulatory No Pcp (Hist) [facility] Start: 11-05-2024 End: 11-05-2024 Patient encounter procedure No Pcp (Hist) [facility] [place] Start: 11-04-2024 End: 11-04-2024 Telephone encounter Rito Camp MD Work Phone: [facility] [place] Comment on above: Left Hip Pain Start: 11-02-2024 End: 11-02-2024 Refill Rito Camp MD Work Phone: [facility] [place] Comment on above: Refill Request Start: 10-26-2024 End: 11-12-2024 Telephone encounter Rito Camp MD Work Phone: Administration Comment on above: Orders (Disc Request ) Start: 10-20-2024 End: 10-20-2024 Chart abstracting Rito Camp MD Work Phone: [facility] [place] Comment on above: Outside Speech Thera py Start: 10-13-2024 End: 10-13-2024 ambulatory Mary Ann Oscar PT [facility] Physical Therapy Comment on above: Pain in left hip (Pr imary Dx) Start: 10-01-2024 End: 10-01-2024 Patient encounter procedure Rito Camp MD Work Phone: [facility] [place] Comment on above: Medicare annual well [...] Start: 10-01-2024 End: 10-01-2024 ambulatory RITO CAMP Facility:[facility] Start: 09-30-2024 End: 09-30-2024 Refill Rito Camp MD Work Phone: [facility] [place] Comment on above: Refill Request Start: 09-29-2024 End: 09-29-2024 ambulatory Mary Ann Oscar PT [facility] Comment on above: Pain in left hip (Pr imary Dx) Start: 09-24-2024 End: 09-24-2024 ambulatory RITO CAMP Facility:[facility] Start: 09-15-2024 End: 09-15-2024 Telephone encounter Rito Camp MD Work Phone: [facility] [place] Comment on above: fax copy of CT Chest to Pulmonary Dr Suleman Gustafson office Start: 09-15-2024 End: 09-15-2024 Patient encounter procedure HOLTER TECHNICIAN Letha Emery [facility] Work Phone: Start: 09-15-2024 End: 09-15-2024 ambulatory Rito Camp Facility:[facility] Start: 09-08-2024 End: 09-08-2024 Telephone encounter Rito Camp MD Work Phone: [facility] [place] Comment on above: Lab Orders Start: 08-13-2024 End: 08-13-2024 ambulatory Christine Parker RN [employer] Comment on above: CDM (Telephonic Outr each) Start: 08-12-2024 End: 08-12-2024 ambulatory Christine Parker RN [employer] Comment on above: CDM (Telephonic Outr each) Start: 08-05-2024 End: 08-07-2024 Telephone encounter Shanita Green PA-C Work Phone: [facility] [place] Comment on above: Results Start: 08-03-2024 End: 08-03-2024 Subsequent hospital visit by physician Eden [facility] [place] Work Phone: Radiology Comment on above: Left hip pain [M25.5 52] Start: 08-03-2024 End: 08-03-2024 Patient encounter procedure Alex Brown APRN.MERCHANDISE EXAMINER Work Phone: [facility] [place] Comment on above: Left hip pain (Prima ry Dx) Start: 08-03-2024 End: 08-03-2024 ambulatory RITO CAMP Facility:[facility] Start: 07-31-2024 End: 07-31-2024 Subsequent hospital visit by physician Eden [facility] [place] Work Phone: Radiology Comment on above: Acute cough [R05.1] Start: 07-31-2024 End: 07-31-2024 ambulatory RITO NAINA Facility:[facility] Start: 07-31-2024 End: 07-31-2024 Patient encounter procedure Shanna Newton APRN.MERCHANDISE EXAMINER Work Phone: [facility] Comment on above: Acute cough (Primary Dx); Bacterial pneumonia Start: 07-27-2024 [facility] Start: 07-27-2024 End: 07-27-2024 ambulatory Letha Emery Facility:[facility] Start: 07-22-2024 End: 07-22-2024 Chart abstracting Rito Camp MD Work Phone: [facility] Comment on above: Outside Pulmonary Start: 07-21-2024 End: 07-21-2024 ambulatory Rito Camp Facility:[facility] Start: 07-16-2024 End: 07-16-2024 ambulatory Christine Parker 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 Comment on above: CDM (Telephonic Outr each) Start: 07-02-2024 End: 07-02-2024 Telephone encounter Alex Brown APRN.MERCHANDISE EXAMINER Work Phone: [facility] Comment on above: Results Start: 07-01-2024 End: 07-01-2024 Subsequent hospital visit by physician Screen Mammo [facility] Comment on above: Encounter for screen ing mammogram for breast cancer [Z12.31] Start: 06-18-2024 End: 06-18-2024 ambulatory Christine Parker RN [employer] Comment on above: CDM (Telephonic Outr each) Start: 06-17-2024 End: 06-17-2024 ambulatory Christine Parker RN [employer] Comment on above: CDM (Telephonic Outr each) Start: 06-10-2024 End: 06-10-2024 Telephone encounter Rito Camp MD Work Phone: [facility] Comment on above: Medication Problem Start: 06-07-2024 End: 06-07-2024 Patient encounter procedure Shanna Newton APRN.MERCHANDISE EXAMINER Work Phone: [facility] Comment on above: Respiratory infectio n (Primary Dx) Start: 06-05-2024 End: 06-05-2024 Telephone encounter Rito Camp MD Work Phone: [facility] Comment on above: Results Start: 06-05-2024 End: 06-05-2024 Patient encounter procedure Rito Capm MD Work Phone: [facility] Comment on above: Acute cystitis witho ut hematuria (Primary Dx) Start: 06-03-2024 End: 06-03-2024 Patient encounter procedure Amry Annrose Dukes APRN.MERCHANDISE EXAMINER Work Phone: [facility] Comment on above: Dysuria (Primary Dx) Start: 05-07-2024 End: 05-07-2024 ambulatory Christine Parker RN [employer] Comment on above: CDM (Telephonic Outr each) Start: 05-06-2024 End: 05-06-2024 ambulatory Christine Parker RN [employer] Comment on above: CDM (Telephonic Outr each) Start: 04-27-2024 End: 04-27-2024 Refill Rito Camp MD Work Phone: [facility] Comment on above: Refill Request Start: 04-24-2024 End: 04-24-2024 Telephone encounter Alex Brown APRN.MERCHANDISE EXAMINER Work Phone: [facility] Comment on above: Results Start: 04-24-2024 End: 04-24-2024 Subsequent hospital visit by physician Mri [facility] (I-Stat/1.5t) Work Phone: Radiology Comment on above: Acute pain of left s le [M25.512] Start: 04-20-2024 End: 04-20-2024 Telephone encounter Rito Camp MD Work Phone: [facility] Comment on above: Patient Update Start: 04-14-2024 End: 04-29-2024 Telephone encounter Alex Brown APRN.MERCHANDISE EXAMINER Work Phone: [facility] Comment on above: Results Start: 04-14-2024 End: 04-14-2024 Subsequent hospital visit by physician Xr [facility] [place] Work Phone: Radiology Comment on above: Fall (on) (from) ot er stairs and steps, initial encounter [W10.8XXA] Start: 04-14-2024 End: 04-14-2024 Patient encounter procedure Alex Brown APRN.MERCHANDISE EXAMINER Work Phone: [facility] Comment on above: Fall (on) (from) oth er stairs and steps, initial encounter (Primary Dx); Rib pain on right side Start: 04-07-2024 ambulatory Christine Parker RN [facility] Comment on above: CDM (Telephonic Outr each) Start: 04-06-2024 ambulatory Christine Parker RN [facility] Comment on above: CDM (Telephonic Outr each) Start: 03-26-2024 End: 03-26-2024 Patient encounter procedure Alex Brown MARKETER.MERCHANDISE EXAMINER Work Phone: [facility] Comment on above: Fall, initial encoun ter (Primary Dx); Acute pain of left shoulder Start: 03-18-2024 End: 03-18-2024 Subsequent hospital visit by physician Eden [facility] [place] Work Phone: Radiology Comment on above: Pain of left clavicl e [M89.8X1] Start: 03-18-2024 End: 03-18-2024 Patient encounter procedure Sweetie Romeo APRN.MERCHANDISE EXAMINER Work Phone: [facility] Comment on above: Fall, initial encoun ter (Primary Dx); Pain of left clavicle; Acute pain of left shoulder Start: 03-16-2024 Refill Rito madera MD Work Phone: [facility] Comment on above: Refill Request Start: 03-11-2024 [...] Chart abstracting Rito sampson MD Work Phone: [facility] Comment on above: ext document (CT rep ort) Start: 01-01-2024 End: 01-01-[address] Rito Camp Work Phone: [facility] Work Phone: Start: 01-01-2024 End: 01-01-[address] Rito Camp Work Phone: [facility] Work Phone: Start: 12-31-2023 Telephone encounter Rito Camp MD Work Phone: [facility] Comment on above: Results Start: 12-23-2023 ambulatory Mary Ann Dukes APRN.MERCHANDISE EXAMINER Work Phone: [facility] Comment on above: Results Start: 12-23-2023 E-mail encounter fro m caregiver Mary Ann Dukes APRN.MERCHANDISE EXAMINER Work Phone: [facility] Start: 12-23-2023 End: 12-23-2023 Subsequent hospital visit by physician Xr [facility] Work Phone: Radiology Comment on above: URI, acute [J06.9] Start: 12-23-2023 End: 12-23-2023 Patient encounter procedure Mary Ann Dukes APRN.MERCHANDISE EXAMINER Work Phone: [facility] Comment on above: URI, acute (Primary Dx); COPD with exacerbation (HCC) Start: 12-22-2023 End: 12-22-2023 Patient encounter procedure Teresa Handley PA-C Work Phone: [facility] Comment on above: COPD with [...] Telephone encounter Rito Camp MD Work Phone: [facility] Comment on above: Patient Update; FYI- No Action Needed Start: 10-22-2023 ambulatory Christine Null [facility] Comment on above: CDM (Telephonic Outr each) Start: 10-21-2023 ambulatory Christine Null [facility] Comment on above: CDM (Telephonic Outr each) Start: 10-16-2023 Telephone encounter Shanita ALCANTARAC Work Phone: [facility] Comment on above: Results Start: 10-15-2023 Telephone encounter Elana Nevin riddle [facility] Comment on above: Results (Disc/Report ) Start: 10-15-2023 End: 10-15-2023 Subsequent hospital visit by physician Eden [facility] [place] Work Phone: Radiology Comment on above: Neck pain [M54.2] Start: 10-15-2023 End: 10-15-2023 Patient encounter procedure Shanita Green PA-C Work Phone: [facility] Comment on above: Neck pain (Primary D x); Acute pain of right shoulder Start: 10-07-2023 Refill Rito madera MD Work Phone: [facility] Comment on above: Refill Request ([facility]) Start: 10-01-2023 Patient encounter procedure Jurgen Camp MD Work Phone: [facility] Work Phone: Start: 08-22-2023 ambulatory hCristine Null l[facility] Care Management Comment on above: CDM (Telephonic Outr each) Start: 08-15-2023 End: 08-15-2023 Subsequent hospital visit by physician Eden [facility] [place] Work Phone: Radiology Comment on above: Lumbar radiculopathy [M54.16] Start: 08-05-2023 End: 08-05-2023 ambulatory Jeancarlos Brewer [facility] Physical Therapy Comment on above: 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, sciatica laterality unspecified (Primary Dx) Start: 07-29-2023 End: 07-29-2023 ambulatory Jeancarlos Fraser PT [facility] Physical Therapy Comment on above: 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, sciatica laterality unspecified (Primary Dx) Start: 07-22-2023 ambulatory Kerrie Chapincalv es RN Work Phone: [employer] Comment on above: CDM Telephonic Outre ach Start: 07-15-2023 End: 07-15-2023 ambulatory Jeancarlos Fraser PT [facility] Physical Therapy Comment on above: 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, sciatica laterality unspecified (Primary Dx) Start: 06-27-2023 Refill Rito madera MD Work Phone: [facility] Comment on above: Refill Request Start: 06-21-2023 ambulatory Kerrie Sriniv es RN Work Phone: [employer] Comment on above: CDM Telephonic Outre ach Start: 06-20-2023 Telephone encounter Rito Camp MD Work Phone: [facility] Comment on above: Results Start: 06-11-2023 Telephone encounter Shanita samuel PA-C Work Phone: [facility] Comment on above: Results Start: 06-11-2023 End: 06-11-2023 Patient encounter procedure Toi Falcon MD Work Phone: General Surgery Comment on above: S/p small bowel obst ruction Start: 06-08-2023 End: 06-08-2023 Patient encounter procedure Rito Camp MD Work Phone: [facility] Comment on above: Bronchitis (Primary Dx); Asthma with COPD with exacerbation (HCC) ; Suspected COVID-19 virus infection Start: 06-05-2023 Telephone encounter Rito Camp MD Work Phone: [facility] Comment on above: Results Start: 06-04-2023 End: 06-04-2023 Patient encounter procedure Alex Brown APRN.CNP Work Phone: [facility] Comment on above: S/p small bowel obst ruction (Primary Dx) Start: 06-03-2023 Telephone encounter Rito Camp MD Work Phone: [facility] Comment on above: Patient Update; [facility] Of Care Start: 06-02-2023 Non-patient / Non-visit Dr. Jurgen Camp Work Phone: [facility] Work Phone: Start: 06-01-2023 Non-patient / Non-visit Dr. Jurgen Camp Work Phone: [facility] Start: 06-01-2023 Non-patient / Non-visit Dr. Jurgen Camp Work Phone: [facility] Work Phone: Start: 06-01-2023 End: 06-02-2023 Evaluation and management of inpatient Dr. Rito Camp Work Phone: [facility] Work Phone: Start: 05-14-2023 Telephone encounter Rito Camp MD Work Phone: [facility] Comment on above: Lab Orders Start: 04-17-2023 End: 04-17-[address] Rito Camp Work Phone: [facility] Work Phone: Start: 04-16-2023 Refill Rito madera MD Work Phone: [facility] Comment on above: Refill Request Start: 04-10-2023 Telephone encounter Kenn Campbell DO Work Phone: Cat Scan Comment on above: disk request Start: 03-07-2023 Telephone encounter Rito Camp MD Work Phone: [facility] Comment on above: Medication Request Start: 03-01-2023 Telephone encounter Rito Camp MD Work Phone: [facility] Comment on above: Results Start: 02-28-2023 ambulatory Kerrie Gonsukumar trujillo RN Work Phone: [employer] Comment on above: CDM Telephonic Outre ach Erroneous encounter- disregard Start: 02-27-2023 Telephone encounter Shanita samuel PA-C Work Phone: [facility] Comment on above: Results Start: 02-26-2023 Chart abstracting Rito sampson MD Work Phone: [facility] Comment on above: Outside Endocrinolog y Start: 02-26-2023 Telephone encounter Alex hawkins APRN.MERCHANDISE EXAMINER Work Phone: [facility] Comment on above: Results Start: 02-26-2023 End: 02-26-2023 Subsequent hospital visit by physician [facility] ([facility]) Work Phone: Cat Scan Comment on above: New onset of headach es after age 51 [R51.9] Start: 02-25-2023 End: 02-25-[address] Rito Camp Work Phone: [facility] Work Phone: Start: 02-21-2023 Telephone encounter Shanita ALCANTARAC Work Phone: [facility] Comment on above: Results Start: 02-20-2023 End: 02-20-2023 Patient encounter procedure Shanita Green PA-C Work Phone: [facility] Comment on above: Psychophysiological insomnia (Primary Dx); New onset of headaches after age 50; Essential hypertension, benign; Ex-smoker Start: 02-15-2023 End: 02-15-2023 Patient encounter procedure Alex Brown APRN.MERCHANDISE EXAMINER Work Phone: [facility] Comment on above: Psychophysiological insomnia (Primary Dx); Runny nose; New onset of headaches after age 51; Ectatic thoracic aorta (HCC) Start: 02-12-2023 End: 02-13-2023 Emergency department patient visit Dr. Rito Camp Work Phone: [facility] Work Phone: Start: 01-21-2023 End: 01-21-2023 Subsequent hospital visit by physician [facility] Cat Scan Start: 01-03-2023 ambulatory Ruth Denton RN [facility] Comment on above: CDM (Telephonic outr each) Start: 12-31-2022 Telephone encounter Rito Camp MD Work Phone: [facility] Comment on above: Referral Information Start: 12-18-2022 End: 12-18-2022 Subsequent hospital visit by physician Xr [facility] Work Phone: Radiology Comment on above: Pain [R52] Start: 12-07-2022 ambulatory Ruth Denton RN [facility] Comment on above: CDM (Telephonic outr each) Start: 12-05-2022 Refill Rito madera MD Work Phone: [facility] Comment on above: Refill Request Start: 12-04-2022 Telephone encounter Rito Camp MD Work Phone: [facility] Comment on above: Results Start: 12-03-2022 End: 12-03-2022 [facility] Work Phone: Radiology Comment on above: Weight loss [R63.4] Start: 11-20-2022 Telephone encounter Shanita samuel PA-C Work Phone: [facility] Comment on above: Results Start: 11-19-2022 End: 11-19-2022 Patient encounter procedure Rito Camp MD Work Phone: [facility] Comment on above: Weight loss (Primary Dx); Ex-smoker; Multiple thyroid nodules; Lung nodules; Osteoporosis, unspecified osteoporosis type, unspecified pathological fracture presence Start: 11-16-2022 Telephone encounter Rito Camp MD Work Phone: [facility] Comment on above: Results Start: 11-13-2022 End: 11-13-2022 Subsequent hospital visit by physician Bone Density [facility] Work Phone: Radiology Comment on above: Osteoporosis, unspec ified osteoporosis type, unspecified pathological fracture presence [M81.0] Start: 11-12-2022 ambulatory Ruth Denton RN [facility] Care Management Comment on above: CDM (Telephonic outr each) Start: 11-05-2022 Telephone encounter Rito Camp MD Work Phone: [facility] Comment on above: Results Start: 09-27-2022 End: [...] 09-17-2022 ambulatory Kami Hunter RN Work Phone: [employer] Comment on above: Community Monitoring Outreach [...] 08-14-2022 ambulatory Kami Hunter RN Work Phone: [facility] Start: 08-14-2022 Follow-up encounter Kami Hunter RN Work Phone: [employer] Comment on above: Community Monitoring Outreach (CDM Follow Up) Start: 08-01-2022 Documentation procedure Mammog deidre Coordinator [facility] Start: 08-01-2022 Letter encounter Mammography Coordinator [facility] Department Start: 07-31-2022 End: 07-31-2022 Patient encounter procedure Ashleigh Negrete APRN.MERCHANDISE EXAMINER Work Phone: OB/Gynecology Comment on above: Encounter for gyneco logical examination (general) (routine) without abnormal findings (Primary Dx); Encounter for screening mammogram for breast cancer Start: 07-31-2022 End: 07-31-2022 Patient encounter status Ashleigh Negrete APRN.MERCHANDISE EXAMINER Work Phone: OB/Gynecology Start: 07-31-2022 End: 07-31-2022 Subsequent hospital visit by physician Screen Mammo [facility] Mammogram Comment on above: Encounter for screen ing mammogram for malignant neoplasm of breast [Z12.31] Start: 07-23-2022 ambulatory Kami Hunter RN Work Phone: [facility] Start: 07-23-2022 Follow-up encounter Kami Hunter RN Work Phone: [employer] Comment on above: Community Monitoring Outreach (CDM Follow Up) Start: 07-09-2022 Telephone encounter Rito Camp MD Work Phone: [facility] [place] Comment on above: chest heaviness; Cov id Positive Results Start: 07-09-2022 End: 07-09-2022 Subsequent hospital visit by physician Xr [facility] Work Phone: Radiology Comment on above: Feeling of chest tig htness [R07.89] Start: 07-09-2022 End: 07-09-2022 Patient encounter procedure Sweetie Romeo APRN.MERCHANDISE EXAMINER Work Phone: [facility] [place] Comment on above: Feeling of chest tig htness (Primary Dx); Chest heaviness; Lab test positive for detection of COVID-19 virus; SOB (shortness of breath) Start: 07-05-2022 Telephone encounter Shanna Newton APRN.MERCHANDISE EXAMINER Work Phone: [facility] Comment on above: Results Start: 07-04-2022 End: 07-04-2022 Patient encounter procedure Rito Sheridan APRN.MERCHANDISE EXAMINER Work Phone: [facility] Comment on above: Suspected COVID-19 v irus infection (Primary Dx) Start: 07-02-2022 ambulatory Kami Hunter RN Work Phone: [employer] Comment on above: Refer / Community Re sources (CD Telephonic) Start: 06-12-2022 ambulatory Kami Hunter RN Work Phone: [employer] Comment on above: Community Monitoring Outreach (CD Telephonic) Start: 05-28-2022 End: 05-28-2022 Patient encounter procedure Shanita Green PA-C Work Phone: [facility] Comment on above: Psychophysiological insomnia (Primary Dx); Overactive bladder Start: 05-16-2022 End: 05-16-[address] Rito Camp Work Phone: [facility] Work Phone: Start: 05-16-2022 End: 05-16-[address] Rito Camp Work Phone: [facility] Start: 05-08-2022 ambulatory Kami Hunter RN Work Phone: [facility] Start: 05-08-2022 Follow-up encounter Kami Hunter RN Work Phone: [employer] Comment on above: Community Monitoring Outreach (CD Follow Up) Start: 05-08-2022 Telephone encounter Shanita samuel PA-C Work Phone: [facility] Comment on above: Patient Update Start: 04-30-2022 Refill Rito madera MD Work Phone: [facility] Comment on above: Refill Request Start: 04-24-2022 ambulatory Kami Hunter RN Work Phone: [facility] Start: 04-24-2022 Follow-up encounter Kami Hunter RN Work Phone: [employer] Comment on above: Community Monitoring Outreach (CDM Telephonic Follow Up) Start: 04-23-2022 ambulatory Kami Hunter RN Work Phone: [facility] Start: 04-23-2022 Follow-up encounter Kami Hunter RN Work Phone: [employer] Comment on above: Community Monitoring Outreach (CDM Telephonic Follow Up) Start: 04-16-2022 End: 04-16-[address] [facility] Camp [facility] Start: 04-11-2022 ambulatory Toi Power RN NURSE LACE SEWER Comment on above: Medication Question Start: 04-10-2022 ambulatory Kami Hunter RN Work Phone: [facility] Start: 04-10-2022 Follow-up encounter Kami Hunter RN Work Phone: [employer] Comment on above: Community Monitoring Outreach (Follow Up) Start: 04-03-2022 ambulatory Kami Hunter RN Work Phone: [facility] Start: 04-03-2022 Follow-up encounter Kami Hunter RN Work Phone: [employer] Comment on above: Community Monitoring Outreach (Telephonic Follow Up) Start: 03-30-2022 Telephone encounter Shanita samuel PA-C Work Phone: [facility] Comment on above: Results Start: 03-29-2022 End: 03-29-2022 Subsequent hospital visit by physician [facility] Work Phone: Radiology Comment on above: Enlarged uterus [N85 .2] Start: 03-26-2022 Telephone encounter Shanita samuel PA-C Work Phone: [facility] Comment on above: Results Start: 03-23-2022 End: 03-23-2022 Subsequent hospital visit by physician [facility] Work Phone: Radiology Comment on above: Partial intestinal o bstruction, unspecified cause (HCC) [K56.600] Start: 03-23-2022 End: 03-23-2022 Patient encounter procedure Shanita Green PA-C Work Phone: [facility] Comment on above: Partial intestinal o bstruction, unspecified cause (HCC) (Primary Dx); Enlarged uterus; Lower abdominal pain; Bruising Start: 03-21-2022 ambulatory Kami Hunter RN Work Phone: [employer] Start: 03-21-2022 Follow-up encounter Kami Hunter RN Work Phone: [employer] Comment on above: Community Monitoring Outreach (Telephonic Follow Up) Start: 03-20-2022 ambulatory Kami Hunter RN Work Phone: [employer] Start: 03-20-2022 Follow-up encounter Kami Hunter RN Work Phone: [employer] Comment on above: Community Monitoring Outreach (Telephonic Follow Up) Start: 03-18-2022 Non-patient / Non-visit Dr. Jurgen Camp Work Phone: [facility] Inpatient Physicians Start: 03-18-2022 Non-patient / Non-visit Dr. Jurgen Camp Work Phone: [facility] Start: 03-17-2022 End: 03-18-2022 Evaluation and management of inpatient Dr. Rito Camp Work Phone: [facility] 3 Start: 03-14-2022 End: 03-14-2022 Subsequent hospital visit by physician [facility] Work Phone: Radiology Comment on above: Coccyx pain [M53.3] Start: 03-14-2022 End: 03-14-2022 Patient encounter procedure Bernard Elliott MD Work Phone[facility] Comment on above: Coccyx pain (Primary Dx) Start: 03-06-2022 ambulatory Kami Hunter RN Work Phone: [facility] Start: 03-06-2022 Follow-up encounter Kami Hunter RN Work Phone: [employer] Comment on above: Community Monitoring Outreach (Telephonic Follow Up) Start: 03-02-2022 ambulatory Kami Hunter RN Work Phone: [facility] Start: 03-02-2022 Follow-up encounter Kami Hunter RN Work Phone: [employer] Comment on above: Community Monitoring Outreach (Telephonic Follow Up) Start: 02-15-2022 ambulatory Kami Hunter RN Work Phone: [facility] Start: 02-15-2022 Follow-up encounter Kami Hunter RN Work Phone: [employer] Comment on above: Community Monitoring Outreach (Telephonic Follow Up) Start: 02-01-2022 ambulatory Kami Hunter RN Work Phone: [facility] Start: 02-01-2022 Follow-up encounter Kami Hunter RN Work Phone: [employer] Comment on above: Community Monitoring Outreach (Telephonic Follow Up) Start: 01-15-2022 ambulatory Kami Hunter RN Work Phone: [facility] Start: 01-15-2022 Follow-up encounter Kami Hunter RN Work Phone: [employer] Comment on above: Community Monitoring Outreach (Telephonic Follow Up) Start: 01-10-2022 Telephone encounter Rito Camp MD Work Phone: [facility] Comment on above: Patient Update Start: 01-10-2022 End: 01-10-2022 Patient encounter procedure Shanna Newton APRN.MERCHANDISE EXAMINER Work Phone: [facility] Comment on above: Cough (Primary Dx) Start: 01-02-2022 ambulatory Kami Hunter RN Work Phone: [facility] Start: 01-02-2022 Follow-up encounter Kami Hunter RN Work Phone: [employer] Comment on above: Community Monitoring Outreach (Telephonic Follow Up) Start: 12-25-2021 Telephone encounter Shanita CORREA-C Work Phone: [facility] Comment on above: Results Start: 12-22-2021 Telephone encounter Rito Camp MD Work Phone: [facility] Comment on above: Returning Patient's Call Start: 12-20-2021 Telephone encounter Shanita samuel PA-C Work Phone: [facility] Comment on above: Results Start: 12-19-2021 End: 12-19-2021 Patient encounter procedure Shanita CORREA-C Work Phone: [facility] Comment on above: Brittle nails (Prima ry Dx) Start: 12-18-2021 [facility] Start: 12-18-2021 Follow-up encounter Kami Hunter RN [employer] Comment on above: Community Monitoring Outreach (Telephonic Follow Up) Start: 12-11-2021 Non-patient / Non-visit Dr. Jurgen Camp Work Phone: [facility] Start: 12-11-2021 End: 12-11-[address] Rito Camp Work Phone: [facility]Ne[facility] Start: 12-04-2021 ambulatory Kami [facility] Start: 12-04-2021 Follow-up encounter Kami Hunter RN [employer] Comment on above: Community Monitoring Outreach (Telephonic Follow Up) Start: 01-27-2021 Patient encounter procedure Ka gracie Hunter RN [facility] Work Phone: Start: 12-27-2020 End: 12-27-2020 Subsequent hospital visit by physician Xr [facility] Work Phone: Radiology Comment on above: Suspected COVID-19 v irus infection [Z20.822] Start: 12-17-2020 End: 12-17-2020 Subsequent hospital visit by physician Xr [facility] Work Phone: Radiology Comment on above: Hip pain, acute, lef t [M25.552] Start: 07-23-2020 End: 07-23-2020 Subsequent hospital visit by physician Xr [facility] Work Phone: Radiology Comment on above: Pneumonia due to COV ID-19 virus [U07.1, J12.89] Procedures Date Procedure Procedure Detail Performing Clinician Start: 05-16-2025 Radex wrist complete minimum 3 views Ky Chuyita MARKETER.MERCHANDISE EXAMINER Work Phone: Start: 03-31-[address] Jake [...] exam ches t 2 views Shanna Newton MARKETER.MERCHANDISE EXAMINER Work Phone: Start: 06-05-2024 Urnls dip stick/tabl et rgnt auto w/o microscopy Rito Camp MD Work Phone: Start: 06-03-2024 Urnls dip stick/tabl et rgnt auto w/o microscopy Rito Sheridan MARKETER.MERCHANDISE EXAMINER Work Phone: Start: 04-24-2024 Mri any jt upper ext remity w/o contrast matrl Alex Brown MARKETER.MERCHANDISE EXAMINER Work Phone: Start: 04-14-2024 Radiologic exam ches t 2 views Alex Brown MARKETER.MERCHANDISE EXAMINER Work Phone: Start: 03-18-2024 Radex clavicle complete Sweetie Podlogar MARKETER.MERCHANDISE EXAMINER Work Phone: Start: 01-01-[address] Jake Camp Work Phone: Start: 12-23-2023 Radiologic exam ches t 2 views Mary Ann Dukes MARKETER.MERCHANDISE EXAMINER Work Phone: Start: 12-23-2023 COVID & INFLUENZA A/ B & RSV NAAT, ROUTINE Mary Ann Dukes MARKETER.MERCHANDISE EXAMINER Work Phone: Start: 10-15-2023 Radex spine cervical 4 or 5 views Shanita Green PA-C Work Phone: Start: 09-23-2023 Lipid 1996 panel - S mary jo or Plasma Rito Camp MD Work Phone: Start: 08-15-2023 Radex hips bilateral with pelvis minimum 5 views Alex Brown MARKETER.MERCHANDISE EXAMINER Work Phone: Start: 06-01-[address] Rito Camp Work Phone: Start: 06-01-2023 Plain X-ray abdomen Dr. Rito Camp Work Phone: Start: 06-01-2023 Plain X-ray abdomen Dr. Rito Camp Work Phone: Start: 05-31-2023 CT of abdomen and pe lvis without contrast Dr. Rito Camp Work Phone: Start: 02-26-2023 Ct angiography head w/contrast/noncontrast Alex Brown MARKETER.MERCHANDISE EXAMINER Work Phone: Start: 12-18-2022 Radex wrist complete minimum 3 views Shanna Newton MARKETER.MERCHANDISE EXAMINER Work Phone: Start: 12-03-2022 Us abdominal real [...] Start: 07-31-2022 End: 07-31-2022 Mammography Ashleigh Negrete MARKETER.MERCHANDISE EXAMINER Work Phone: Start: 07-09-2022 Ecg routine ecg w/le ast 12 lds i&r only [facility] Provider Start: 07-09-2022 Radiologic exam ches t 2 views Sweetie Romeo MARKETER.MERCHANDISE EXAMINER Work Phone: Start: 05-16-2022 CT of chest [...] exam ches t 2 views Will Kidd MARKETER.MERCHANDISE EXAMINER Work Phone: Start: 12-17-2020 Radex hip unilateral with pelvis 2-3 views Cathleen Mckee MARKETER.MERCHANDISE EXAMINER Work Phone: Start: 07-23-2020 Radiologic exam ches t 2 views Darvin Gold MD Start: 06-27-2016 Colonoscopy Kami riojas RN Plan of Treatment Date Care Activity Detail Author Start: 09-24-2029 Lipid panel Lipid Screening [facility] Start: 12-18-2028 Urine microalbumin profile [facility] Start: 09-23-2028 Lipid panel Lipid Screening [facility] Start: 09-24-2027 Diabetes Screening Diabetes Screenin g [facility] Start: 09-15-2027 Lipid 1996 panel - S mary jo or Plasma Lipid Screening [facility] Start: 09-15-2027 Lipid panel Lipid Screening [facility] Start: 09-15-2027 LIPID SCREEN LIPID SCREEN [facility] Start: 12-28-2026 Screening for osteoporosis Bone Dens ity Screening [facility] Start: 09-23-2026 Diabetes Screening Diabetes Screenin g [facility] Start: 09-21-2026 LIPID SCREEN LIPID SCREEN [facility] Start: 06-27-2026 Colonoscopy COLONOSCOPY [facility] Start: 06-27-2026 COLORECTAL CANCER SCREENING COLORECTAL CANCER SCREENING [facility] Start: 06-27-2026 Screening for malign ant neoplasm of colon [facility] Start: 05-14-2026 Annual PCP Team Finish Mender dontae Disease Visit Annual PCP Team Chronic Disease Visit [facility] Start: 05-04-2026 Annual PCP Team Finish Mender dontae Disease Visit Annual PCP Team Chronic Disease Visit [facility] Start: 03-15-2026 Annual PCP Team Finish Mender dontae Disease Visit Annual PCP Team Chronic Disease Visit [facility] Start: 02-20-2026 DIABETES SCREEN DIABETES SCREEN [facility] Start: 02-20-2026 Diabetes Screening Diabetes Screenin g [facility] Start: 01-05-2026 Annual PCP Team Finish Mender dontae Disease Visit Annual PCP Team Chronic Disease Visit [facility] Start: 10-01-2025 Annual PCP Team Finish Mender dontae Disease Visit Annual PCP Team Chronic Disease Visit [facility] Start: 10-01-2025 BP Controlled (<130/80) BP Controlle d (<130/80) [facility] Start: 10-01-2025 Depression Screening Depression Scre ening [facility] Start: 09-20-2025 End: 09-20-2025 Patient encounter procedure 09/20/2025 10:00 AM EST Office Visit [facility] [address] [place] [address] Rito Camp MD [address] [place] [id number] Medicare Wellness [facility] Comment on above: Medicare Wellness Start: 09-15-2025 DIABETES SCREEN DIABETES SCREEN [facility] Start: 09-02-2025 End: 12-02-2025 25-hydroxyvitamin D3 [Mass/volume] in Serum or Plasma VITAMIN D 25 HYDROXY Lab Routine Osteoporosis, unspecified osteoporosis type, unspecified pathological fracture presence Expected: 09/02/2025, Expires: 12/02/2025 [facility] Comment on above: Expected: 09/02/2025 , Expires: 12/02/2025 Start: 09-02-2025 End: 12-02-2025 CBC W Auto Differential panel - Blood COMPLETE BLOOD COUNT AND DIFFERENTIAL Lab Routine GERD without esophagitis Heavy alcohol use Medication management Expected: 09/02/2025, Expires: 12/02/2025 [facility] Comment on above: Expected: 09/02/2025 , Expires: 12/02/2025 Start: 09-02-2025 End: 12-02-2025 Cobalamin (Vitamin B12) [Mass/volume] in Serum or Plasma VITAMIN B12 Lab Routine GERD without esophagitis Medication management Expected: 09/02/2025, Expires: 12/02/2025 [facility] Comment on above: Expected: 09/02/2025 , Expires: 12/02/2025 Start: 09-02-2025 End: 12-02-2025 Comprehensive metabolic 2000 panel - Serum or Plasma COMPREHENSIVE METABOLIC PANEL Lab Routine Essential hypertension, benign Elevated blood sugar Expected: 09/02/2025, Expires: 12/02/2025 [facility] Comment on above: Expected: 09/02/2025 , Expires: 12/02/2025 Start: 09-02-2025 End: 12-02-2025 Folate [Mass/volume] in Serum or Plasma FOLATE, SERUM Lab Routine Heavy alcohol use Medication management Expected: 09/02/2025, Expires: 12/02/2025 [facility] Comment on above: Expected: 09/02/2025 , Expires: 12/02/2025 Start: 09-02-2025 End: 12-02-2025 Hemoglobin A1c in Blood HEMOGLOBIN A1C Lab Routine Elevated blood sugar Expected: 09/02/2025, Expires: 12/02/2025 [facility] Comment on above: Expected: 09/02/2025 , Expires: 12/02/2025 Start: 09-02-2025 End: 12-02-2025 Iron and Iron binding capacity panel - Serum or Plasma IRON AND TIBC Lab Routine Heavy alcohol use Medication management Expected: 09/02/2025, Expires: 12/02/2025 [facility] Comment on above: Expected: 09/02/2025 , Expires: 12/02/2025 Start: 09-02-2025 End: 12-02-2025 LIPID PANEL, NONFASTING LIPID PANEL, NONFASTING Lab Routine Essential hypertension, benign Expected: 09/02/2025, Expires: 12/02/2025 [facility] Comment on above: Expected: 09/02/2025 , Expires: 12/02/2025 Start: 09-02-2025 End: 12-02-2025 Magnesium [Mass/volume] in Serum or Plasma MAGNESIUM Lab Routine GERD without esophagitis Medication management Expected: 09/02/2025, Expires: 12/02/2025 [facility] Comment on above: Expected: 09/02/2025 , Expires: 12/02/2025 Start: 09-02-2025 End: 12-02-2025 Thyrotropin [Units/volume] in Serum or Plasma THYROID STIMULATING HORMONE Lab Routine Chronic anxiety Medication management Expected: 09/02/2025, Expires: 12/02/2025 [facility] Comment on above: Expected: 09/02/2025 , Expires: 12/02/2025 Start: 09-02-2025 End: 12-02-2025 Urinalysis complete panel - Urine URINALYSIS, WITH MICROSCOPIC Lab Routine Essential hypertension, benign Expected: 09/02/2025, Expires: 12/02/2025 [facility] Comment on above: Expected: 09/02/2025 , Expires: 12/02/2025 Start: 08-03-2025 Annual PCP Team Finish Mender dontae Disease Visit Annual PCP Team Chronic Disease Visit [facility] Start: 07-01-2025 Screening for malign ant neoplasm of breast Mammogram Screening [facility] Start: 06-08-2025 X-ray of lumbosacral spine L/S Spine Min 4 Views [facility] Start: 06-08-2025 XR Spine Lumbar and Sacrum GE 4 Views [facility] Start: 06-05-2025 Annual PCP Team Finish Mender dontae Disease Visit Annual PCP Team Chronic Disease Visit [facility] Start: 05-24-2025 End: 05-24-2025 Patient encounter procedure 05/24/2025 9:00 AM EDT Appointment Radiology [address] [place] [address] MRI LUMBAR SPINE WO IVCON Radiology Comment on above: MRI LUMBAR SPINE WO IVCON Start: 05-03-2025 Influenza vaccination Influenza Vacc ine (#1) [facility] Start: 04-14-2025 Annual PCP Team Finish Mender dontae Disease Visit Annual PCP Team Chronic Disease Visit [facility] Start: 03-31-2025 Colonoscopy w/biopsy single/multiple COLONOSCOPY AND BIOPSY [facility] Start: 03-31-2025 Egd insert guide wir e dilator passage esophagus EGD GUIDE WIRE INSERTION [facility] Start: 03-31-2025 Egd transoral biopsy single/multiple EGD BIOPSY SINGLE/MULTIPLE [facility] Start: 03-31-[facility]25 [facility]: 03-26-[facility]25 Annual PCP Team Finish Mender dontae Disease Visit Annual PCP Team Chronic Disease Visit [facility] Start: 03-24-2025 End: 03-24-2025 Patient encounter procedure 03/24/2025 9:40 AM EDT Office Visit Family [facility] [address] [place] [address] Shanita Green PA-C [address] [place] [address] go over lab work Family Eric Brewer Comment on above: go over lab work Start: 03-18-2025 Annual PCP Team Finish Mender dontae Disease Visit Annual PCP Team Chronic Disease Visit [facility] Start: 03-15-2025 End: 06-14-2025 HYPERCOAG DIAG [facility] Work Phone: Comment on above: Expected: 03/15/2025 , Expires: 06/14/2025 Start: 02-03-2025 End: 02-03-2025 Patient encounter procedure 02/03/2025 9:40 AM EDT Office Visit Family Eric Brewer [address] [place] [address] Shanita Green PA-C [address] [place] [address] routine ov Family Eric Brewer Comment on above: routine ov Start: 01-21-2025 End: 01-21-2025 Patient encounter procedure 01/21/2025 10:30 AM EDT Office Visit Cardiology [address] [place] [address] Ectatic thoracic aorta [I77.810] Cardiology Comment on above: Ectatic thoracic aor ta [I77.810] Start: 12-28-2024 End: 12-28-2024 Patient encounter procedure 12/28/2024 8:55 AM EDT Appointment Radiology [address] [place] [address] Osteoporosis, unspecified osteoporosis type, unspecified pathological fracture presence [M81.0] Radiology Comment on above: Osteoporosis, unspec ified osteoporosis type, unspecified pathological fracture presence [M81.0] Start: 12-08-2024 End: 12-08-2024 Patient encounter procedure [facility] [place] Comment on above: Insomnia/Hip pain. 2 month follow up Start: 11-19-2024 End: 11-19-2024 Patient encounter procedure 11/19/2024 11:15 AM EDT Appointment Radiology [address] [place] [id number] M81.0 (ICD-10-CM) - Osteoporosis, unspecified osteoporosis type, unspecified pathological fracture presence Radiology Comment on above: M81.0 (ICD-10-CM) - Osteoporosis, unspecified osteoporosis type, unspecified pathological fracture presence Start: 11-13-2024 Screening for osteoporosis Bone Dens ity Screening [facility] Start: 10-29-2024 End: 10-29-2024 Patient encounter procedure 10/29/2024 11:15 AM EST Appointment Radiology [address] [place] [id number] M81.0 (ICD-10-CM) - Osteoporosis, unspecified osteoporosis type, unspecified pathological fracture presence Radiology Comment on above: M81.0 (ICD-10-CM) - Osteoporosis, unspecified osteoporosis type, unspecified pathological fracture presence Start: 10-27-2024 End: 10-27-2024 ambulatory 10/27/2024 10:30 AM EST OT/PT/Speech Visit [facility] [address] [place] [address] O'HumbertoJurgenMary Ann, PT Pain in left hip [M25.552] [facility] Comment on above: Pain in left hip [M2 5.552] Start: 10-21-2024 End: 10-21-2024 ambulatory 10/21/2024 9:45 AM EST OT/PT/Speech Visit [facility] [address] [place] [address] O'HumbertoJurgenMary Ann, PT Pain in left hip [M25.552] [facility] Comment on above: Pain in left hip [M2 5.552] Start: 10-15-2024 Annual PCP Team Finish Mender dontae Disease Visit Annual PCP Team Chronic Disease Visit [facility] Start: 10-13-2024 End: 10-13-2024 ambulatory 10/13/2024 10:30 AM EST OT/PT/Speech Visit [facility] [address] [place] [address] O'HumbertoMary Ann ernandez, PT Pain in left hip [M25.552] [facility] Comment on above: Pain in left hip [M2 5.552] Start: 10-09-2024 End: 10-09-2024 ambulatory 10/09/2024 10:00 AM EST OT/PT/Speech Visit [facility] [address] [place] [address] O'HumbertoMary Ann ernandez, PT Pain in left hip [M25.552] [facility] Comment on above: Pain in left hip [M2 5.552] Start: 10-01-2024 Annual PCP Team Jeramie hall Disease Visit Annual PCP Team Chronic Disease Visit [facility] Start: 10-01-2024 RSV Vaccine (1 - 1-d ose 60+ series) RSV Vaccine (1 - 1-dose 60+ series) [facility] Comment on above: Postponed from 03/10 (Insurance Coverage) Start: 10-01-2024 End: 10-01-2024 Patient encounter procedure 10/01/2024 10:00 AM EST Office Visit [facility] [place] [address] [place] [address] Rito Camp MD [address] [place] [address] Medicare wellness [facility] Comment on above: Medicare wellness Start: 09-24-2024 End: 09-24-2024 ambulatory 09/24/2024 10:15 AM EST Results Only [facility] [address] [place] [address] fasting lab work [facility] Comment on above: fasting lab work Start: 09-23-2024 End: 09-23-2024 ambulatory 09/23/2024 10:15 AM EST Results Only [facility] [address] [place] [address] [place] [facility] Start: 09-21-2024 DIABETES SCREEN DIABETES SCREEN [facility] Start: 09-17-2024 End: 09-17-2024 ambulatory 09/17/2024 10:15 AM EST OT/PT/Speech Visit [facility] [address] [place] [address] Mary Ann Oscar, PT Left hip pain [M25.552] [facility] Comment on above: Left hip pain [M25.5 52] Start: 09-08-2024 End: 12-08-2024 25-hydroxyvitamin D3 [Mass/volume] in Serum or Plasma VITAMIN D 25 HYDROXY Lab Routine Osteoporosis, unspecified osteoporosis type, unspecified pathological fracture presence Expected: 09/08/2024, Expires: 12/08/2024 [facility] Comment on above: Expected: 09/08/2024 , Expires: 12/08/2024 Start: 09-08-2024 End: 12-08-2024 CBC W Auto Differential panel - Blood COMPLETE BLOOD COUNT AND DIFFERENTIAL Lab Routine Essential hypertension, benign Expected: 09/08/2024, Expires: 12/08/2024 [facility] Comment on above: Expected: 09/08/2024 , Expires: 12/08/2024 Start: 09-08-2024 End: 12-08-2024 Cobalamin (Vitamin B12) [Mass/volume] in Serum or Plasma VITAMIN B12 Lab Routine Heavy alcohol use Medication management Expected: 09/08/2024, Expires: 12/08/2024 [facility] Work Phone: Comment on above: Expected: 09/08/2024 , Expires: 12/08/2024 Start: 09-08-2024 End: 12-08-2024 Comprehensive metabolic 2000 panel - Serum or Plasma COMPREHENSIVE METABOLIC PANEL Lab Routine Elevated blood sugar Expected: 09/08/2024, Expires: 12/08/2024 [facility] Comment on above: Expected: 09/08/2024 , Expires: 12/08/2024 Start: 09-08-2024 End: 12-08-2024 Hemoglobin A1c in Blood HEMOGLOBIN A1C Lab Routine Elevated blood sugar Expected: 09/08/2024, Expires: 12/08/2024 [facility] Comment on above: Expected: 09/08/2024 , Expires: 12/08/2024 Start: 09-08-2024 End: 12-08-2024 Iron and Iron binding capacity panel - Serum or Plasma IRON AND TIBC Lab Routine Heavy alcohol use Medication management Expected: 09/08/2024, Expires: 12/08/2024 [facility] Comment on above: Expected: 09/08/2024 , Expires: 12/08/2024 Start: 09-08-2024 End: 12-08-2024 LIPID PANEL, NONFASTING LIPID PANEL, NONFASTING Lab Routine Essential hypertension, benign Expected: 09/08/2024, Expires: 12/08/2024 [facility] Comment on above: Expected: 09/08/2024 , Expires: 12/08/2024 Start: 09-08-2024 End: 12-08-2024 Magnesium [Mass/volume] in Serum or Plasma MAGNESIUM Lab Routine Medication management Expected: 09/08/2024, Expires: 12/08/2024 [facility] Comment on above: Expected: 09/08/2024 , Expires: 12/08/2024 Start: 09-08-2024 End: 12-08-2024 Thyrotropin [Units/volume] in Serum or Plasma THYROID STIMULATING HORMONE Lab Routine Multiple thyroid nodules Expected: 09/08/2024, Expires: 12/08/2024 [facility] Comment on above: Expected: 09/08/2024 , Expires: 12/08/2024 Start: 09-08-2024 End: 12-08-2024 Urinalysis complete panel - Urine URINALYSIS, WITH MICROSCOPIC Lab Routine Elevated blood sugar Expected: 09/08/2024, Expires: 12/08/2024 [facility] Comment on above: Expected: 09/08/2024 , Expires: 12/08/2024 Start: 09-02-2024 Advance Directive Discussion Advance Directive Discussion [facility] Start: 08-31-2024 End: 08-31-2024 ambulatory 08/31/2024 9:00 AM EST OT/PT[facility] [address] [place] [address] Jeancarlos Fraser, PT My left side has been hurting for over 2 weeks [place] [facility] Comment on above: My left side has bee n hurting for over 2 weeks Start: 08-15-2024 Annual PCP Team Finish Mender dontae Disease Visit Annual PCP Team Chronic Disease Visit [facility] Start: 08-03-2024 End: 08-03-2024 Patient encounter procedure 08/03/2024 9:20 AM EST Office Visit [facility] [address] [facility] [place] [address] Alex Brown APRN.MERCHANDISE EXAMINER [address] [place] [place] [address] pain in left side constant x2 weeks [facility] [place] Comment on above: pain in left side co nstant x2 weeks Start: 06-23-2024 End: 06-23-2024 Patient encounter procedure 06/23/2024 9:10 AM EDT Appointment Mammogram [address] [place] [address] screening mammogram Mammogram Comment on above: screening mammogram Start: 06-18-2024 End: 06-18-2024 Patient encounter procedure 06/18/2024 10:10 AM EDT Appointment Mammogram [address] [place] [address] screening mammogram Mammogram Comment on above: screening mammogram Start: 06-16-2024 End: 06-16-2024 ambulatory 06/16/2024 10:00 AM EDT OT/PT/Speech Visit [facility] [address] [place] [address] Jeancarlos Fraser, PT Tendinopathy of rotator cuff, unspecified laterality [M67.919] [facility] Comment on above: Tendinopathy of rota tor cuff, unspecified laterality [M67.919] Start: 06-11-2024 BP Controlled (<130/80) BP Controlle d (<130/80) [facility] Start: 06-11-2024 Mammography Mammogram Screening [facility] Start: 06-11-2024 Screening for malign ant neoplasm of breast Mammogram Screening [facility] Start: 06-08-2024 Annual PCP Team Finish Mender dontae Disease Visit Annual PCP Team Chronic Disease Visit [facility] Start: 06-04-2024 Annual PCP Team Finish Mender dontae Disease Visit Annual PCP Team Chronic Disease Visit [facility] Start: 05-27-2024 End: 05-27-2024 ambulatory 05/27/2024 10:45 AM EDT OT/PT/Speech Visit [facility] [address] [place] [address] Josué Elder, PT [address] [place] [address] SHOULDER PAIN [facility] Comment on above: SHOULDER PAIN Start: 05-19-2024 PNEUMOVAX AGE 65 AND OVER WITH 5YR LOOKBACK (#1) PNEUMOVAX AGE 65 AND OVER WITH 5YR LOOKBACK (#1) [facility] Start: 05-14-2024 Annual PCP Team Finish Mender dontae Disease Visit Annual PCP Team Chronic Disease Visit [facility] Start: 05-03-2024 Influenza vaccination Influenza Vacc ine (#1) [facility] Start: 04-24-2024 End: 04-24-2024 Patient encounter procedure 04/24/2024 9:20 AM EDT Appointment Radiology [address] [place] [address] Fall, initial encounter [W19.XXXA] Radiology Comment on above: Fall, initial encoun ter [W19.XXXA] Start: 02-21-2024 ANNUAL PCP TEAM CERTIFIED NOVELL ADMINISTRATOR DONTAE DISEASE VISIT ANNUAL PCP TEAM CHRONIC DISEASE VISIT [facility] Start: 02-16-2024 ANNUAL PCP TEAM CERTIFIED NOVELL ADMINISTRATOR DONTAE DISEASE VISIT ANNUAL PCP TEAM CHRONIC DISEASE VISIT [facility] Start: 12-31-2023 End: 12-31-2023 Patient encounter procedure 12/31/2023 10:30 AM EDT Office Visit Cardiology [address] [place] [address] Ectatic thoracic aorta (HCC) [I77.810] Cardiology Comment on above: Ectatic thoracic aor ta (HCC) [I77.810] Start: 12-19-2023 BP CONTROLLED (<130/80) BP CONTROLLE D (<130/80) [facility] Start: 11-20-2023 ANNUAL PCP TEAM CERTIFIED NOVELL ADMINISTRATOR DONTAE DISEASE VISIT ANNUAL PCP TEAM CHRONIC DISEASE VISIT [facility] Start: 11-20-2023 BP CONTROLLED (<130/80) BP CONTROLLE D (<130/80) [facility] Start: 09-27-2023 ANNUAL PCP TEAM CERTIFIED NOVELL ADMINISTRATOR DONTAE DISEASE VISIT ANNUAL PCP TEAM CHRONIC DISEASE VISIT [facility] Start: 09-20-2023 End: 11-20-2023 CBC W Auto Differential panel - Blood CBC + DIFF Lab Routine Medication management Expected: 09/20/2023, Expires: 11/20/2023 [facility] Work Phone: Comment on above: Expected: 09/20/2023 , Expires: 11/20/2023 Start: 09-20-2023 End: 11-20-2023 Cobalamin (Vitamin B12) [Mass/volume] in Serum or Plasma VITAMIN B12 BLOOD Lab Routine Medication management GERD without esophagitis Expected: 09/20/2023, Expires: 11/20/2023 [facility] Work Phone: Comment on above: Expected: 09/20/2023 , Expires: 11/20/2023 Start: 09-20-2023 End: 11-20-2023 Comprehensive metabolic 2000 panel - Serum or Plasma COMP METABOLIC PANEL Lab Routine Essential hypertension, benign Expected: 09/20/2023, Expires: 11/20/2023 [facility] Work Phone: Comment on above: Expected: 09/20/2023 , Expires: 11/20/2023 Start: 09-20-2023 End: 11-20-2023 Hemoglobin A1c in Blood HGB A1C Lab Routine Elevated blood sugar Expected: 09/20/2023, Expires: 11/20/2023 [facility] Work Phone: Comment on above: Expected: 09/20/2023 , Expires: 11/20/2023 Start: 09-20-2023 End: 11-20-2023 LIPID PANEL, NONFASTING LIPID PANEL, NONFASTING Lab Routine Essential hypertension, benign Expected: 09/20/2023, Expires: 11/20/2023 [facility] Work Phone: Comment on above: Expected: 09/20/2023 , Expires: 11/20/2023 Start: 09-20-2023 End: 11-20-2023 Magnesium [Mass/volume] in Serum or Plasma MAGNESIUM BLD Lab Routine Medication management GERD without esophagitis Expected: 09/20/2023, Expires: 11/20/2023 [facility] Work Phone: Comment on above: Expected: 09/20/2023 , Expires: 11/20/2023 Start: 09-20-2023 End: 11-20-2023 Thyrotropin [Units/volume] in Serum or Plasma TSH BLD Lab Routine Multiple thyroid nodules Expected: 09/20/2023, Expires: 11/20/2023 [facility] Work Phone: Comment on above: Expected: 09/20/2023 , Expires: 11/20/2023 Start: 09-20-2023 End: 11-20-2023 Urinalysis complete panel - Urine URINALYSIS, WITH MICROSCOPIC Lab Routine Essential hypertension, benign Expected: 09/20/2023, Expires: 11/20/2023 [facility] Work Phone: Comment on above: Expected: 09/20/2023 , Expires: 11/20/2023 Start: 09-02-2023 Behavioral Health Screening Behavioral Health Screening [facility] Start: 07-31-2023 BP CONTROLLED (<130/80) BP CONTROLLE D (<130/80) [facility] Start: 07-31-2023 Mammography [facility] Start: 07-09-2023 ANNUAL PCP TEAM CERTIFIED NOVELL ADMINISTRATOR DONTAE DISEASE VISIT ANNUAL PCP TEAM CHRONIC DISEASE VISIT [facility] Start: 07-09-2023 BP CONTROLLED (<130/80) BP CONTROLLE D (<130/80) [facility] Start: 06-06-2023 End: 08-06-2023 CBC W Auto Differential panel - Blood CBC + DIFF Lab Routine Leukocytosis, unspecified type Expected: 06/06/2023, Expires: 08/06/2023 [facility] Work Phone: Comment on above: Expected: 06/06/2023 , Expires: 08/06/2023 Start: 06-02-2023 End: 06-02-2023 [facility] Start: 06-02-2023 Patient discharge [facility] Start: 06-01-2023 [facility] Start: 06-01-2023 Blood chemistry [facility] Start: 06-01-2023 Application of intermittent pneumatic compression device [facility] Start: 06-01-2023 Following clinical p athway protocol [facility] Start: 06-01-2023 Assessment of risk o f venous thromboembolism [facility] Start: 06-01-2023 Documentation procedure [facility] Start: 06-01-2023 Insertion of cathete r into peripheral vein [facility] Start: 06-01-2023 Insertion of nasogas tric tube [facility] Start: 06-01-2023 Oxygen therapy [facility] Start: 06-01-2023 Providing care accor ding to standard [facility] Start: 06-01-2023 Referral to general surgeon [facility] Start: 06-01-2023 End: 06-01-2023 [facility] Start: 06-01-2023 Verification routine [facility] Start: 06-01-2023 Admission procedure [facility] Start: 05-28-2023 ANNUAL PCP TEAM CERTIFIED NOVELL ADMINISTRATOR DONTAE DISEASE VISIT ANNUAL PCP TEAM CHRONIC DISEASE VISIT [facility] Start: 05-28-2023 BP CONTROLLED (<130/80) BP CONTROLLE D (<130/80) [facility] Start: 05-03-2023 Influenza vaccination [facility] Start: 04-30-2023 ANNUAL PCP TEAM CERTIFIED NOVELL ADMINISTRATOR DONTAE DISEASE VISIT ANNUAL PCP TEAM CHRONIC DISEASE VISIT [facility] Start: 04-30-2023 BP CONTROLLED (<130/80) BP CONTROLLE D (<130/80) [facility] Start: 04-06-2023 BP CONTROLLED (<130/80) BP CONTROLLE D (<130/80) [facility] Start: 03-29-2023 End: 09-27-2023 CBC W Auto Differential panel - Blood CBC + DIFF Lab Routine Thrombocytosis Expected: 03/29/2023, Expires: 05/29/2023 [facility] Work Phone: Comment on above: Expected: 03/29/2023 , Expires: 05/29/2023 Start: 03-23-2023 ANNUAL PCP TEAM CERTIFIED NOVELL ADMINISTRATOR DONTAE DISEASE VISIT ANNUAL PCP TEAM CHRONIC DISEASE VISIT [facility] Start: 03-23-2023 BP CONTROLLED (<130/80) BP CONTROLLE D (<130/80) [facility] Start: 03-14-2023 BP CONTROLLED (<130/80) BP CONTROLLE D (<130/80) [facility] Start: 02-27-2023 End: 04-29-2023 CBC W Auto Differential panel - Blood CBC + DIFF Lab Routine Thrombocytosis Expected: 02/27/2023, Expires: 04/29/2023 [facility] Work Phone: Comment on above: Expected: 02/27/2023 , Expires: 04/29/2023 Start: 02-27-2023 End: 04-29-2023 Ferritin [Mass/volume] in Serum or Plasma FERRITIN BLD Lab Routine Thrombocytosis Expected: 02/27/2023, Expires: 04/29/2023 [facility] Work Phone: Comment on above: Expected: 02/27/2023 , Expires: 04/29/2023 Start: 02-27-2023 End: 04-29-2023 Iron and Iron binding capacity panel - Serum or Plasma IRON + TIBC Lab Routine Thrombocytosis Expected: 02/27/2023, Expires: 04/29/2023 [facility] Work Phone: Comment on above: Expected: 02/27/2023 , Expires: 04/29/2023 Start: 12-19-2022 ANNUAL PCP TEAM CERTIFIED NOVELL ADMINISTRATOR DONTAE DISEASE VISIT ANNUAL PCP TEAM CHRONIC DISEASE VISIT [facility] Start: 12-19-2022 BP CONTROLLED (<130/80) BP CONTROLLE D (<130/80) [facility] Start: 12-04-2022 End: 02-03-2023 CREATININE BLD CREATININE BLD Lab Routine Essential hypertension, benign Expected: 12/04/2022, Expires: 02/03/2023 [facility] Work Phone: Comment on above: Expected: 12/04/2022 , Expires: 02/03/2023 Start: 11-19-2022 End: 01-19-2023 Thyrotropin [Units/volume] in Serum or Plasma [facility] Work Phone: Comment on above: Expected: 11/19/2022 , Expires: 01/19/2023 Start: 11-19-2022 End: 01-19-2023 Thyroxine (T4) free [Mass/volume] in Serum or Plasma [facility] Work Phone: Comment on above: Expected: 11/19/2022 , Expires: 01/19/2023 Start: 10-31-2022 End: 12-31-2022 CBC W Auto Differential panel - Blood CBC + DIFF Lab Routine Leukocytosis, unspecified type Expected: 10/31/2022, Expires: 12/31/2022 [facility] Work Phone: Comment on above: Expected: 10/31/2022 , Expires: 12/31/2022 Start: 10-24-2022 ANNUAL PCP TEAM CERTIFIED NOVELL ADMINISTRATOR DONTAE DISEASE VISIT ANNUAL PCP TEAM CHRONIC DISEASE VISIT [facility] Start: 10-24-2022 BP CONTROLLED (<130/80) BP CONTROLLE D (<130/80) [facility] Start: 09-12-2022 End: 11-12-2022 CBC W Auto Differential panel - Blood CBC + DIFF Lab Routine Medication management Expected: 09/12/2022, Expires: 11/12/2022 [facility] Work Phone: Comment on above: Expected: 09/12/2022 , Expires: 11/12/2022 Start: 09-12-2022 End: 11-12-2022 Cobalamin (Vitamin B12) [Mass/volume] in Serum or Plasma VITAMIN B12 BLOOD Lab Routine Medication management GERD without esophagitis Expected: 09/12/2022, Expires: 11/12/2022 [facility] Work Phone: Comment on above: Expected: 09/12/2022 , Expires: 11/12/2022 Start: 09-12-2022 End: 11-12-2022 Comprehensive metabolic 2000 panel - Serum or Plasma COMP METABOLIC PANEL Lab Routine Essential hypertension, benign Expected: 09/12/2022, Expires: 11/12/2022 [facility] Work Phone: Comment on above: Expected: 09/12/2022 , Expires: 11/12/2022 Start: 09-12-2022 End: 11-12-2022 Hemoglobin A1c in Blood HGB A1C Lab Routine Elevated blood sugar Expected: 09/12/2022, Expires: 11/12/2022 [facility] Work Phone: Comment on above: Expected: 09/12/2022 , Expires: 11/12/2022 Start: 09-12-2022 End: 11-12-2022 LIPID PANEL, NONFASTING LIPID PANEL, NONFASTING Lab Routine Essential hypertension, benign Expected: 09/12/2022, Expires: 11/12/2022 [facility] Work Phone: Comment on above: Expected: 09/12/2022 , Expires: 11/12/2022 Start: 09-12-2022 End: 11-12-2022 Magnesium [Mass/volume] in Serum or Plasma MAGNESIUM BLD Lab Routine Medication management GERD without esophagitis Expected: 09/12/2022, Expires: 11/12/2022 [facility] Work Phone: Comment on above: Expected: 09/12/2022 , Expires: 11/12/2022 Start: 09-12-2022 End: 11-12-2022 Thyrotropin [Units/volume] in Serum or Plasma TSH BLD Lab Routine Multiple thyroid nodules Expected: 09/12/2022, Expires: 11/12/2022 [facility] Work Phone: Comment on above: Expected: 09/12/2022 , Expires: 11/12/2022 Start: 09-12-2022 End: 11-12-2022 Urinalysis complete panel - Urine URINALYSIS, WITH MICROSCOPIC Lab Routine Essential hypertension, benign Expected: 09/12/2022, Expires: 11/12/2022 [facility] Work Phone: Comment on above: Expected: 09/12/2022 , Expires: 11/12/2022 Start: 09-02-2022 ADVANCE DIRECTIVE DISCUSSION ADVANCE DIRECTIVE DISCUSSION [facility] Start: 09-02-2022 DEPRESSION ASSESSMENT DEPRESSION ASS ESSMENT [facility] Start: 07-25-2022 Mammography MAMMOGRAM [facility] Start: 07-04-2022 End: 07-18-2022 Influenza virus A and B RNA and SARS-CoV-2 (COVID-19) N gene panel - Respiratory specimen by THOMAS with probe detection COVID WITH FLUA+B, ROUTINE Microbiology Routine Suspected COVID-19 virus infection Expected: 07/04/2022, Expires: 07/18/2022 [facility] Work Phone: Comment on above: Expected: 07/04/2022 , Expires: 07/18/2022 Start: 05-11-2022 FECAL OCCULT BLOOD FECAL OCCULT BLOO D [facility] Start: 05-11-2022 Screening for malign ant neoplasm of colon Fecal Occult Blood [facility] Start: 05-03-2022 Influenza vaccination INFLUENZA (#1) [facility] Start: 03-23-2022 End: 05-23-2022 CBC W Auto Differential panel - Blood [facility] Work Phone: Comment on above: Expected: 03/23/2022 , Expires: 05/23/2022 Start: 03-18-2022 [facility] Start: 03-18-2022 [facility] Work Phone: Start: 03-18-2022 [facility] Work Phone: Start: 03-17-2022 Following clinical p athway protocol [facility] Work Phone: Start: 03-17-2022 Assessment of risk o f venous thromboembolism [facility] Work Phone: Start: 03-17-2022 Incentive spirometry Wo [facility] Work Phone: Start: 03-17-2022 Inhalation therapy procedure [facility] Work Phone: Start: 03-17-2022 Insertion of cathete r into peripheral vein [facility] Work Phone: Start: 03-17-2022 Insertion of nasogas tric tube [facility] Work Phone: Start: 03-17-2022 Introduction of urin gibson catheter [facility] Work Phone: Start: 03-17-2022 Measuring intake and output [facility] Work Phone: Start: 03-17-2022 Oxygen therapy [facility] Work Phone: Start: 03-17-2022 Providing care accor ding to standard [facility] Work Phone: Start: 03-17-2022 Provision of activit y privileges [facility] Work Phone: Start: 03-17-2022 Referral to general surgeon [facility] Work Phone: Start: 03-17-2022 Referral to service [facility] Work Phone: Start: 03-17-2022 [facility] Work Phone: Start: 03-17-2022 Verification routine [facility] Work Phone: Start: 03-17-2022 Admission procedure [facility] Work Phone: Start: 03-17-2022 Plain X-ray abdomen Abdomen Si ngle View (Portable) [facility] Work Phone: Start: 03-17-2022 XR Abdomen Single view [facility] Work Phone: Start: 03-17-2022 [facility] Work Phone: Start: 02-13-2022 BP CONTROLLED (<130/80) BP CONTROLLE D (<130/80) [facility] Start: 01-19-2022 End: 03-21-2022 VITAMIN B12 BLOOD VITAMIN B12 BLOOD Lab Routine High serum vitamin B12 Expected: 01/19/2022, Expires: 03/21/2022 [facility] Work Phone: Comment on above: Expected: 01/19/2022 , Expires: 03/21/2022 Start: 01-19-2022 End: 03-21-2022 VITAMIN D 25 HYDROXY VITAMIN D 25 HYDROXY Lab Routine High vitamin D level Expected: 01/19/2022, Expires: 03/21/2022 [facility] Work Phone: Comment on above: Expected: 01/19/2022 , Expires: 03/21/2022 Start: 12-19-2021 End: 02-18-2022 Ascorbate [Mass/volume] in Serum or Plasma [facility] Work Phone: Comment on above: Expected: 12/19/2021 , Expires: 02/18/2022 Start: 12-19-2021 End: 02-18-2022 Folate [Mass/volume] in Serum or Plasma [facility] Work Phone: Comment on above: Expected: 12/19/2021 , Expires: 02/18/2022 Start: 12-19-2021 End: 02-18-2022 IRON + TIBC [facility] Work Phone: Comment on above: Expected: 12/19/2021 , Expires: 02/18/2022 Start: 12-19-2021 End: 02-18-2022 VITAMIN B12 BLOOD [facility] Work Phone: Comment on above: Expected: 12/19/2021 , Expires: 02/18/2022 Start: 12-19-2021 End: 02-18-2022 VITAMIN D 25 HYDROXY [facility] Work Phone: Comment on above: Expected: 12/19/2021 , Expires: 02/18/2022 Start: 09-02-2021 ADVANCE DIRECTIVE DISCUSSION ADVANCE DIRECTIVE DISCUSSION [facility] Start: 09-02-2021 DEPRESSION ASSESSMENT DEPRESSION ASS ESSMENT [facility] Start: 2016 RSV Vaccine (1 - 1-d ose 60+ series) RSV Vaccine (1 - 1-dose 60+ series) [facility] Start: 2001 COLOGUARD (FIT-DNA) [facility] Start: [address] COLONOGRAPHY [facility] Start: 2001 Screening for malign ant neoplasm of colon [facility] Start: 2001 [facility]COPY [facility] Start: 1986 Zoledronic acid therapy ALPHA- 1 ANTITRYPSIN DEFICIENCY SCREENING [facility] Start: 1974 Depression Screening Depression Scre ening [facility] Anion gap measurement [facility] Bacteria identified in Urine by Culture URINE CULTURE Microbiology Routine Dysuria 06/03/2024 10:52 AM EDT [facility] End: 10-31-2025 BD DXA TRABECULAR BONE SCORE (TBS) BD DXA TRABECULAR BONE SCORE (TBS) Radiology Routine Osteoporosis, unspecified osteoporosis type, unspecified pathological fracture presence 1 Occurrences starting 10/01/2024 until 10/31/2025 [facility] Comment on above: 1 Occurrences starti ng 10/01/2024 until 10/31/2025 BUN/Creatinine ratio [facility] Calcium [Mass/volume ] in Serum or Plasma [facility] Carbon dioxide, tota l [Moles/volume] in Serum or Plasma [facility] Chlamydia trachomatis+Neisseria gonorrhoeae DNA [Presence] in Unspecified specimen by THOMAS with probe detection GONORRHEA/CHLAMYDIA NAAT Lab Routine Dysuria Ordered: 06/03/2024 [facility] Comment on above: Ordered: 06/03/2024 Chloride [Moles/volu me] in Serum or Plasma [facility] COVID & INFLUENZA A/ B & RSV NAAT, ROUTINE COVID & INFLUENZA A/B & RSV NAAT, ROUTINE Microbiology Routine Suspected COVID-19 virus infection 06/08/2023 11:28 AM EDT [facility] Work Phone: Creatinine [Moles/vo lume] in Serum or Plasma [facility] End: 01-03-2024 Ct abdomen & pelvis w/contrast material CT ABD/PEL W IVCON Radiology Routine Ex-smoker Weight loss, unintentional 1 Occurrences starting 12/04/2022 until 01/03/2024 [facility] Work Phone: Comment on above: 1 Occurrences starti ng 12/04/2022 until 01/03/2024 CT Chest [facility] CT Chest [facility] End: 12-19-2023 Ct thorax w/o contrast material CT CHEST WO IVCON Radiology Routine Weight loss Ex-smoker Lung nodules 1 Occurrences starting 11/19/2022 until 12/19/2023 [facility] Work Phone: Comment on above: 1 Occurrences starti ng 11/19/2022 until 12/19/2023 End: 03-16-2024 CTA HEAD W IVCON CTA HEAD W IVCON Radiology Routine New onset of headaches after age 50 1 Occurrences starting 02/15/2023 until 03/16/2024 [facility] Work Phone: Comment on above: 1 Occurrences starti ng 02/15/2023 until 03/16/2024 End: 10-31-2025 DXA Skeletal system.axial Views for bone density DXA-AXIAL SKELETON Radiology Routine Osteoporosis, unspecified osteoporosis type, unspecified pathological fracture presence 1 Occurrences starting 10/01/2024 until 10/31/2025 [facility] Work Phone: Comment on above: 1 Occurrences starti ng 10/01/2024 until 10/31/2025 End: 10-27-2023 DXA-AXIAL SKELETON DXA-AXIAL SKELETON Radiology Routine Osteoporosis, unspecified osteoporosis type, unspecified pathological fracture presence 1 Occurrences starting 09/27/2022 until 10/27/2023 [facility] Work Phone: Comment on above: 1 Occurrences starti ng 09/27/2022 until 10/27/2023 End: 07-09-2023 ECG COMPLETE ECG COMPLETE ECG Routine Feeling of chest tightness Chest heaviness SOB (shortness of breath) 1 Occurrences starting 07/09/2022 until 07/09/2023 [facility] Work Phone: Comment on above: 1 Occurrences starti ng 07/09/2022 until 07/09/2023 End: 01-05-2026 Echocardiography ECHO Cardiology Routine Ectatic thoracic aorta 1 Occurrences starting 01/05/2025 until 01/05/2026 [facility] Work Phone: Comment on above: 1 Occurrences starti ng 01/05/2025 until 01/05/2026 Glucose [Mass/volume ] in Serum or Plasma [facility] Helicobacter pylori Ag [Presence] in Stool by Immunoassay [facility] Hematocrit [Volume Fraction] of Blood [facility] Hemoglobin [Mass/vol ume] in Blood [facility] Leukocytes [#/volume ] in Blood [facility] Magnesium [Mass/volu me] in Serum or Plasma [facility] Work Phone: Mean corpuscular hemoglobin concentration determination [facility] Mean corpuscular hemoglobin determination [facility] Measurement of renal function [facility] MG Breast Screening MARCIANO SCREENIN G Radiology Routine Encounter for screening mammogram for breast cancer 07/01/2024 11:46 AM EDT [facility] Work Phone: End: 06-03-2026 MR Lumbar spine WO contrast MRI LUMBAR SPINE WO IVCON Radiology Routine Lumbar radiculopathy Lumbar back pain Radiculopathy of lumbar region 1 Occurrences starting 05/04/2025 until 06/03/2026 [facility] Work Phone: Comment on above: 1 Occurrences starti ng 05/04/2025 until 06/03/2026 End: 04-25-2025 MR Shoulder - left WO and W contrast IV MRI SHOULDER WO/W IVCON LEFT Radiology Routine Fall, initial encounter Acute pain of left shoulder 1 Occurrences starting 03/26/2024 until 04/25/2025 [facility] Work Phone: Comment on above: 1 Occurrences starti ng 03/26/2024 until 04/25/2025 Neutrophil count [facility] Neutrophil percent differential count [facility] Patient Education ED Anxiety Reaction [facility] Work Phone: Patient referral [facility] Work Phone: Platelets [#/volume] in Blood [facility] Potassium [Moles/vol ume] in Serum or Plasma [facility] Red blood cell count [facility] Red cell distributio n width determination [facility] ROUTINE FLU A/B + RSV ROUTINE FL U A/B + RSV Lab Routine Suspected COVID-19 virus infection 06/08/2023 11:28 AM EDT [facility] Work Phone: SARS-CoV-2 (COVID-19 ) RNA [Presence] in Respiratory specimen by THOMAS with probe detection COVID NAAT, UPPER RESPIRATORY, ROUTINE Microbiology Routine Suspected COVID-19 virus infection 06/08/2023 11:28 AM EDT [facility] Work Phone: End: 08-30-2023 Screening mammography bi 2-view breast inc cad MARCIANO SCREENING Radiology Routine Encounter for gynecological examination (general) (routine) without abnormal findings Encounter for screening mammogram for breast cancer 1 Occurrences starting 07/31/2022 until 08/30/2023 [facility] Work Phone: Comment on above: 1 Occurrences starti ng 07/31/2022 until 08/30/2023 Sodium [Moles/volume ] in Serum or Plasma [facility] TRICHOMONAS VAGINALIS NAAT TRICH OMONAS VAGINALIS NAAT Lab Routine Dysuria Ordered: 06/03/2024 [facility] Work Phone: Comment on above: Ordered: 06/03/2024 Urea nitrogen [Mass/volume] in Serum or Plasma [facility] End: 12-19-2023 US ABDOMEN COMPLETE US ABDOMEN COMPLETE Radiology Routine Weight loss Ex-smoker 1 Occurrences starting 11/19/2022 until 12/19/2023 [facility] Work Phone: Comment on above: 1 Occurrences starti ng 11/19/2022 until 12/19/2023 End: 04-22-2023 Us pelvic nonobstetric real-time image complete US FEMALE PELVIS TRANSABD COMPLETE Radiology Routine Enlarged uterus Lower abdominal pain 1 Occurrences starting 03/23/2022 until 04/22/2023 [facility] Work Phone: Comment on above: 1 Occurrences starti ng 03/23/2022 until 04/22/2023 End: 04-22-2023 Us transvaginal US FEMALE PELVIS TRANSVAG Radiology Routine Enlarged uterus Lower abdominal pain 1 Occurrences starting 03/23/2022 until 04/22/2023 [facility] Work Phone: Comment on above: 1 Occurrences starti ng 03/23/2022 until 04/22/2023 Us transvaginal US FEMALE PELVIS TRANSVAG Radiology Routine Enlarged uterus Lower abdominal pain 03/29/2022 10:30 AM EDT [facility] Work Phone: Vitamin D, 25-hydrox y measurement [facility] XR ABDOMEN 1V SUPINE XR ABDOMEN 1V SUPINE Radiology Routine Partial intestinal obstruction, unspecified cause (HCC) 03/23/2022 8:49 AM EDT [facility] Work Phone: End: 09-02-2025 XR Pelvis and Hip - left AP and Lateral frog XR HIP GENERAL 3V PELV/AP/LAT LEFT Radiology Routine Left hip pain 1 Occurrences starting 08/03/2024 until 09/02/2025 [facility] Work Phone: Comment on above: 1 Occurrences starti ng 08/03/2024 until 09/02/2025 XR Pelvis and Hip - left AP and Lateral frog XR HIP GENERAL 3V PELV/AP/LAT LEFT Radiology Routine Left hip pain 08/03/2024 10:22 AM EST [facility] End: 11-13-2024 XR Shoulder - right 3 Views XR SHOULDER GENERAL 3V OR MORE AP/TRUE AP/OTHER RIGHT Radiology Routine Neck pain Acute pain of right shoulder 1 Occurrences starting 10/15/2023 until 11/13/2024 [facility] Work Phone: Comment on above: 1 Occurrences starti ng 10/15/2023 until 11/13/2024 XR Shoulder - right 3 Views XR SHOULDER GENERAL 3V OR MORE AP/TRUE AP/OTHER RIGHT Radiology Routine Neck pain Acute pain of right shoulder 10/15/2023 9:38 AM EST [facility] Work Phone: [facility] Immunizations Immunization Date Immunization Notes Care Provider Radha lorenzana 06-30-2024 influenza virus vacc ine, unspecified formulation Shanita Green PA-C Work Phone: [facility] 12-26-2023 pneumococcal conjuga te (PCV20) vaccine, 20 valent (PREVNAR 20) Rito Camp MD Work Phone: [facility] 12-26-2023 respiratory syncytia l virus (RSV) vaccine, adjuvanted (AREXVY) Rito Camp MD Work Phone: [facility] 06-05-2023 influenza, high dose seasonal, preservative-free Rito Camp MD Work Phone: [facility] 06-05-2023 influenza virus vacc ine, unspecified formulation Christine Parker RN [facility] 06-27-2022 influenza (aIIV4) vaccine, age 65+ yr, quadrivalent, PF (FLUAD QUADRIVALENT) Kami Hunter RN Work Phone: [facility] 06-27-2022 influenza virus vacc ine, unspecified formulation Rito Camp MD Work Phone: [facility] 11-14-2021 pneumococcal (PCV20) vaccine, 20 valent (PREVNAR 20) Kami Hunter RN [facility] 06-10-2021 COVID-19 vaccine, ag e 12+ yr (PFIZER-BIONTECH - [facility]) Kami Hunter RN [facility] 05-29-2021 influenza, seasonal, injectable Kami Hunter RN [facility] 05-03-2021 Covid (Pfizer) Dr. Rito corona Work Phone: [facility] 04-02-2021 Covid (Pfizer) Dr. Rito corona Work Phone: [facility] 05-18-2020 influenza, injectabl e, quadrivalent, preservative free Kami Hunter RN [facility] Work Phone: 05-18-2020 influenza, seasonal, injectable Kami Hunter RN [facility] 05-18-2020 pneumococcal conjuga te vaccine, 13 valent Kami Hunter RN [facility] 05-19-2019 influenza, injectabl e, quadrivalent, preservative free Kami Hunter [facility] Work Phone: 05-19-2019 influenza, seasonal, injectable Kami Hunter RN [facility] 05-19-2019 pneumococcal polysaccharide vaccine, 23 valent Kami Hunter RN [facility] 04-04-2019 zoster vaccine recombinant Kami Hunter [facility] 12-18-2018 tetanus toxoid, redu darnell diphtheria toxoid, and acellular pertussis vaccine, adsorbed Kami Hunter [facility] Work Phone: 12-18-2018 zoster vaccine recombinant Kami Hunter [facility] Work Phone: 05-18-2018 influenza, seasonal, injectable Kami Hunter RN [facility] 05-12-2018 influenza, injectabl e, quadrivalent, contains preservative Kami Hunter RN [facility] 05-15-2017 influenza, seasonal, injectable Kami Hunter [facility] 05-15-2017 tetanus toxoid, redu darnell diphtheria toxoid, and acellular pertussis vaccine, adsorbed Kami Hunter RN [facility] 06-15-2015 influenza virus vacc ine, unspecified formulation Kami Hunter RN [facility] 06-12-[address] Rito Camp Work Phone: [facility] 06-12-2013 influenza, seasonal, injectable Kami Hunter RN [facility] 05-31-2012 influenza virus vacc ine, unspecified formulation Kami Hunter RN [facility] 06-21-2010 influenza virus vacc ine, unspecified formulation Kami Hunter RN [facility] 05-23-2009 influenza virus vacc ine, live, attenuated, for intranasal use Kami Hunter [facility] Work Phone: 07-08-2007 influenza virus vacc ine, unspecified formulation Kami Hunter RN [facility] 07-04-2005 pneumococcal polysaccharide vaccine, 23 valent Kami Hunter RN [facility] Work Phone: 01-05-2005 pneumococcal (PCV15) vaccine, 15 valent (VAXNEUVANCE) Shanita Green PA-C Work Phone: [facility] 01-05-[address] Kwan Camp Work Phone: [facility] Work Phone: 01-05-2005 pneumococcal vaccine , unspecified formulation Shanita Green PA-C Work Phone: [facility] Payers Date Payer Category Payer Self-pay [id number] 2020 Medicare (Managed Care) JANET RAMAN O [id number] 2020 Unknown JANET FERNÁNDEZ S AND BLUE SHIELD [facility] [id number] 2020-Present [phone] [address] [place] [address] [id number] 2020 Unknown [id number] 2014 Medicare [employer] MDCR HMO [id number] 2014-2020 [address] [address] O [id number] 2014 Unknown [id number] 2013 Unknown [id number] 2012 Unknown [id number] Unknown [id number] Unknown [id number] Unknown [id number] Unknown [id number] Unknown [id number] Unknown [id number] Unknown [id number] Unknown [id number] Unknown [id number] Unknown [id number] Unknown [id number] Unknown [id number] Unknown [id number] Unknown [id number] Unknown [id number] Unknown [id number] Social History Date Type Detail Facility Start: 08-06-2012 End: 06-03-2024 Tobacco smoking status NHIS Ex-smoker [facility] Start: 07-31-1990 End: 07-31-2005 History of tobacco use Current smoker [facility] Start: 07-31-1990 End: 07-31-2005 History of tobacco use Cigarette Smoker [facility] Start: 08-06-2012 End: 01-21-2023 Cigarettes smoked current (pack per day) - Reported 1.5 [facility] Work Phone: Start: 08-06-2012 End: 06-03-2024 Tobacco use and exposure Smokeless tobacco non-user [facility] Start: 10-24-2021 End: 05-16-2025 Alcohol intake Current drinker of alcohol (finding) [facility] Start: 06-18-2016 History SDOH Alcohol Comment 5-8 beers daily [facility] Start: 1955 Sex Assigned At Not on file [facility] Start: 06-23-2020 End: 07-31-2022 Exposure to SARS-CoV-2 (event) Not sure [facility] Work Phone: Start: 07-11-2021 End: 06-01-2023 Tobacco smoking status PRIS Unknown if ever smoked [facility] Start: 1955 Sex Assigned At Female W [facility] Start: 03-16-2022 End: 03-26-2022 Exposure to SARS-CoV-2 (event) Unable to assess [facility] Work Phone: Start: 01-21-2023 End: 02-20-2023 Tobacco use panel [facility] Work Phone: Start: 08-03-2012 Adult Depression Screening Assessment 0 [facility] Work Phone: Start: 07-18-2013 Occasional [facility] Start: 07-18-2013 None [facility] Start: 07-18-2013 Spouse/ Signif icant Other [facility] Start: 07-18-2013 Non-smoker [facility] (I/We) worried wheth er (my/our) food would run out before (I/we) got money to buy more. Never true [facility] Do you belong to any clubs or organizations such as congregational groups, unions, frafood.[email or web address] or athletic groups, or school groups? No [facility] Are you now , , , , never or living with a partner? [facility] How often to you hav e a drink containing alcohol? 4 or more times a week [facility] How many standard drinks containing alcohol do you have on a typical day? 5 or 6 [facility] How often do you hav e 6 or more drinks on 1 occasion? Daily or almost daily [facility] Do you feel stress - tense, restless, nervous, or anxious, or unable to sleep at night because your mind is troubled all the time - these days [OSQ] To some extent [facility] Start: 11-30-2024 Sex Female (finding) [facility] Start: 05-06-2025 [facility] NEGATED: Highlighted row [facility] NEGATED: Highlighted row Not [facility] Goals Date Patient Goal Desired Activity [...] Facility 06-02-2023 Functional status Ambulates [facility] Work Phone: 03-18-2022 Functional status Ambulates;Up ad moisés [facility] Work Phone: 10-14-2018 Are you deaf, or do you have serious difficulty hearing No 10/14/2018 5:48 PM Darvin Proctor III, MD No [facility] 10-14-2018 Are you blind, or do you have serious difficulty seeing, even when wearing glasses No 10/14/2018 5:48 PM Darvin Proctor III, MD No [facility] 10-14-2018 Do you have serious difficulty walking or climbing stairs No 10/14/2018 5:48 PM Darvin Proctor III, MD No [facility] 10-14-2018 Do you have difficul ty dressing or bathing No 10/14/2018 5:48 PM Darvin Proctor III, MD [facility] 10-14-2018 Because of a physica l, mental, or emotional condition, do you have difficulty doing errands alone such as visiting a physician's office or shopping No 10/14/2018 5:48 PM Darvin Proctor III, MD [facility] Mental Status Date Assessment Result Facility 03-31-2025 Cognitive function Voice/Name [facility] Work Phone: 06-01-2023 Cognitive function Voice/Name [facility] Work Phone: 03-18-2022 Cognitive function Demonstrates ability to follow instructions/comprehend [facility] Work Phone: 03-17-2022 Cognitive function Voice/Name [facility] Work Phone: 10-14-2018 Because of a physica l, mental, or emotional condition, do you have serious difficulty concentrating, remembering, or making decisions No 10/14/2018 5:48 PM Darvin Proctor III, MD No [facility] Clinical Notes 01-03-2017 to 07-06-2025 Debo Fernandes, RT(R) - 05/16/2025 12:30 PM EDTMooKy morrow APRN.MERCHANDISE EXAMINER - 05/16/2025 12:14 PM EDTTelephone Encounter - Jacki MarkMANDIE - 05/14/2025 10:43 AM EDT Note Date & Type Note Facility 07-06-2025 Note HNO ID: [id number] Author: ALEX BROWN APRN.LUIS FELIPE Service: ? [...] (EXEP) 05/23/2021 EF=65%, 1+TI. COLONOSCOPY N/A 03/31/2025 [facility] - Dr. Gill COLONOSCOPY FLX DX W/COLLJ SPEC WHEN PFRMD 08/19/2006 Repeat in COLONOSCOPY FLX DX W/COLLJ SPEC WHEN PFRMD 06/27/2016 Colonoscopy CRANIOPLASTY SKULL DEF/REPAIR/ BRAIN 09/14/2014 See scanned documents - status post EGD W/O [facility] SPEC VARICIES INJ N/A 03/31/2025 [facility] - Dr. Gill ESOPHAGOGASTRODUODENOSCOPY TRANSORAL DIAGNOSTIC [...] time a week. (more content not included)... [facility] 07-05-2025 Note HNO ID: [id number] Author: DESTINI CHAVARRIA Mammo Tech Service: ? Author Type: Marine Engineering Teacher Type: Progress Notes Filed: 07/05/2025 11:47 Note [...] PATIENT PRESENTS WITH AN IMPLANTABLE OR ATTACHED BLANKET WEAVER: No RADIOLOGY DEPARTMENT: Mammography PERIPHERAL IV DATA: Not applicable SIGNED BY: Bassam Gary July 05, 2025 11:46 AM [facility] 06-09-2025 Note HNO ID: [id number] Author: GERALD JOHN MA Service: ? Author Type: Pneumatic System Conveyor Operator Type: Progress Notes Filed: 06/09/2025 09:07 Note Text: Scan on 06/08/2025 4:34 PM by Provider, [facility] [place]: Aneudy Hargrove [facility] 05-27-2025 Note HNO ID: [id number] Author: DEBO FERNANDES RT(R) Service: ? Author [...] PATIENT PRESENTS WITH AN IMPLANTABLE OR ATTACHED BLANKET WEAVER: No RADIOLOGY DEPARTMENT: General X-ray: Exam(s) Completed: Upper Extremity X-Ray(s): Wrist, right and Hand, right PERIPHERAL IV DATA: Not applicable SIGNED BY: RT Rafa(R) May 27, 2025 9:18 AM [facility] 05-27-2025 Note HNO ID: [id number] Author: RITO CAMP MD Service: ? Author [...] which she received an injection from her painter airbrush, Dr. Epstein, yesterday. She initially sought evaluation [...] improved since the fall. She notes that fcrm-zbz-addzhyg medications, including 800 mg of ibuprofen, have been ineffective. She has been using a wrist brace and applying ice packs twice daily, but reports no significant relief. She also tried various topical treatments, including lidocaine, Nevive, and [address], without improvement. The pain is affecting her [...] 01/27/2021 Chest tightne (more content not included)... [facility] 05-24-2025 Note HNO ID: [id number] Author: DEEP TOLBERT RT(Renata) Service: ? Author [...] PATIENT PRESENTS WITH AN IMPLANTABLE OR ATTACHED BLANKET WEAVER: No RADIOLOGY DEPARTMENT: MR; Exam(s) Completed: Spine: Lumbar spine. Anesthesia: No. Aromatherapy Administered: No PERIPHERAL IV DATA: Not applicable SIGNED BY: RT Yoly(Renata) May 24, 2025 9:03 AM [facility] 05-16-2025 History of Presen t illness Narrative [...] PATIENT PRESENTS WITH AN IMPLANTABLE OR ATTACHED BLANKET WEAVER: No RADIOLOGY DEPARTMENT: General X-ray: Exam(s) Completed: Upper Extremity X-Ray(s): Wrist, right PERIPHERAL IV DATA: Not applicable SIGNED BY: RT Rafa(Renata) May 16, 2025 12:16 PM documented in this encounter [facility] 05-16-2025 Note HNO ID: [id number] Author: DEBO FERNANDES RT(R) Service: ? Author [...] PATIENT PRESENTS WITH AN IMPLANTABLE OR ATTACHED BLANKET WEAVER: No RADIOLOGY DEPARTMENT: General X-ray: Exam(s) Completed: Upper Extremity X-Ray(s): Wrist, right PERIPHERAL IV DATA: Not applicable SIGNED BY: RT Rafa(R) May 16, 2025 12:16 PM [facility] 05-16-2025 Note HNO ID: [id number] Author: [place] SHAVER APRN.MERCHANDISE EXAMINER Service: ? Author Type: Nurse Practitioner Type: [...] WRIST GENERAL 3V PA/LAT/OBL RIGHT [place] ALAN Shaver.MERCHANDISE EXAMINER Disposition The patient was discharged. Procedures [facility] 05-16-2025 History of Presen t illness Narrative [...] WRIST GENERAL 3V PA/LAT/OBL RIGHT [place] Shaver APRN.MERCHANDISE EXAMINER Disposition The patient was discharged. Procedures documented in this encounter [facility] 05-14-2025 Telephone encounter Note Images from the original note were not included. Electronic PA rec'd and completed for cyclobenzaprine. This was approved. Prior authorization approved Payer: Janet Note from payer: SUNNY Case: [id number], Status: Approved, Coverage Starts on: 02/12/2025 12:00:00 AM, Coverage Ends on: 05/14/2026 12:00:00 AM. Approval Details Authorization number: [id number] Authorized from February 12, 2025 to May [...] to its destination. To be filled at: [facility] [address] [place] [address] - [address] [facility] - [phone] [facility] 05-14-2025 Miscellaneous Notes Images from the original note were not included. Electronic PA rec'd and completed for cyclobenzaprine. This was approved. Prior authorization approved Payer: Janet Note from payer: SUNNY Case: [id number], Status: Approved, Coverage Starts on: 02/12/2025 12:00:00 AM, Coverage Ends on: 05/14/2026 12:00:00 AM. Approval Details Authorization number: [id number] Authorized from February 12, 2025 to May [...] to its destination. To be filled at: [facility] [address] [place] [id number] [address] - [phone] documented in this encounter [facility] 05-14-2025 Note HNO ID: [id number] Author: ALEX BROWN APRN.MERCHANDISE EXAMINER Service: ? Author Type: Nurse Practitioner Type: [...] (EXEP) 05/23/2021 EF=65%, 1+TI. COLONOSCOPY N/A 03/31/2025 [facility] - Dr. Gill COLONOSCOPY FLX DX W/COLLJ SPEC WHEN PFRMD 08/19/2006 Repeat in COLONOSCOPY FLX DX W/COLLJ SPEC WHEN PFRMD 06/27/2016 Colonoscopy CRANIOPLASTY SKULL DEF/REPAIR/ BRAIN 09/14/2014 See scanned documents - status post EGD W/O [facility] SPEC VARICIES INJ N/A 03/31/2025 [facility] - Dr. Gill ESOPHAGOGASTRODUODENOSCOPY TRANSORAL DIAGNOSTIC [...] capsule by mout (more content not included)... [facility] 05-14-2025 History of Presen t illness Narrative [...] (EXEP) 05/23/2021 EF=65%, 1+TI. COLONOSCOPY N/A 03/31/2025 [facility] - Dr. Gill COLONOSCOPY FLX DX W/COLLJ SPEC WHEN PFRMD 08/19/2006 Repeat in COLONOSCOPY FLX DX W/COLLJ SPEC WHEN PFRMD 06/27/2016 Colonoscopy CRANIOPLASTY SKULL DEF/REPAIR/ BRAIN 09/14/2014 See scanned documents - status post EGD W/O [facility] SPEC VARICIES INJ N/A 03/31/2025 [facility] - Dr. Gill ESOPHAGOGASTRODUODENOSCOPY TRANSORAL DIAGNOSTIC [...] 60 MG/2 ML INTRAMUSCULAR SOLUTION Alex Brown APRN.MERCHANDISE EXAMINER [1] Social History Tobacco Use Smoking status: [...] Drug use: No documented in this encounter [facility] 05-12-2025 Note HNO ID: [id number] Author: GERALD JOHN MA Service: ? Author Type: Pneumatic System Conveyor Operator Type: Progress Notes Filed: 05/12/2025 08:12 Note Text: Outside non [facility] ordered labs. View External Labs - H. Pylori [ID [id number]] [facility] 05-11-2025 Telephone encounter Note The following approved medication requests have been transmitted electronically. Requested Prescriptions Signed Prescriptions Disp Refills omeprazole (PRILOSEC) 40 mg capsule 90 capsule 1 Sig: Take 1 capsule by mouth once daily. Authorizing Provider: RITO CAMP MD [facility] 05-11-2025 Miscellaneous Notes The following approved medication [...] 2025 9:05 AM documented in this encounter [facility] 05-11-2025 Telephone encounter Note Prescription Refill Information [...] Mitzy Kirkland May 11, 2025 9:05 AM [facility] Work Phone: 05-07-2025 Note HNO ID: [id number] Author: GERALD JOHN MA Service: ? Author Type: Pneumatic System Conveyor Operator Type: Progress Notes Filed: 05/07/2025 14:55 Note Text: Scan on 05/06/2025 3:25 PM by ProviderJenna PA-C: [facility] Initial Eval [facility] 05-07-2025 History of Presen t illness Narrative Scan on 05/06/2025 3:25 PM by ProviderJenna PA-C: [facility] Initial Eval documented in this encounter [facility] 05-04-2025 Note HNO ID: [id number] Author: SHANITA GREEN PA-C Service: ? Author Type: Physician Chief Engineering Division Type: Progress Notes Filed: 05/04/2025 09:34 Note [...] (EXEP) 05/23/2021 EF=65%, 1+TI. COLONOSCOPY N/A 03/31/2025 [facility] - Dr. Gill COLONOSCOPY FLX DX W/COLLJ SPEC WHEN PFRMD 08/19/2006 Repeat in COLONOSCOPY FLX DX W/COLLJ SPEC WHEN PFRMD 06/27/2016 Colonoscopy CRANIOPLASTY SKULL DEF/REPAIR/ BRAIN 09/14/2014 See scanned documents - status post EGD W/O [facility] SPEC VARICIES INJ N/A 03/31/2025 [facility] - Dr. Gill ESOPHAGOGASTRODUODENOSCOPY TRANSORAL DIAGNOSTIC [...] Colon Polyps Father (more content not included)... [facility] 05-04-2025 History of Presen t illness Narrative [...] (EXEP) 05/23/2021 EF=65%, 1+TI. COLONOSCOPY N/A 03/31/2025 [facility] - Dr. Gill COLONOSCOPY FLX DX W/COLLJ SPEC WHEN PFRMD 08/19/2006 Repeat in COLONOSCOPY FLX DX W/COLLJ SPEC WHEN PFRMD 06/27/2016 Colonoscopy CRANIOPLASTY SKULL DEF/REPAIR/ BRAIN 09/14/2014 See scanned documents - status post EGD W/O [facility] SPEC VARICIES INJ N/A 03/31/2025 [facility] - Friend ESOPHAGOGASTRODUODENOSCOPY TRANSORAL DIAGNOSTIC 06/27/2016 [...] on results. Shanita Green PA-C Recording using [employer] software for draft documentation of the visit was discussed with the patient/authorized customer success representative; all questions welcomed and answered. Patient/authorized customer success representative agreed to proceed [1] Social History [...] Drug use: No documented in this encounter [facility] 04-05-2025 Telephone encounter Note Noted. Shanita Green PA-C [facility] 04-05-2025 Miscellaneous Notes Noted. Shanita Green PA-C [...] Trazodone 150 mg at bedtime. Pharmacy is [facility]. Please review and adviseMaliha RN documented in this encounter [facility] 04-05-2025 Telephone encounter Note Patient calls with [...] Trazodone 150 mg at bedtime. Pharmacy is [facility]. Please review and advise, Maliha Fregoso RN [facility] 03-31-2025 Note HNO ID: [id number] Author: GERALD JOHN MA Service: ? Author Type: Pneumatic System Conveyor Operator Type: Progress Notes Filed: 03/31/2025 12:47 Note [...] 9:15 AM by Jenna Garcias PA-C: Colonoscopy [facility] 03-31-2025 History of Presen t illness Narrative [...] Garcias PA-C: Colonoscopy documented in this encounter [facility] 03-31-2025 Consult note [facility] 03-31-2025 Consult note [facility] 03-31-2025 Consult note Note Date/Time March 31, 2025 7:40am [facility] Medical Records Department [address] [place] [address] Pre-Anesthesia Evaluation 03/31/25 0731 MR#: [id number] Acct: [id number] Name: JENA RAMIREZ [place] Rep #:[id number] : 1955 70 From: Nina Pimentel CRNA PCP: Dr. 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 estate Female Yes 03/25/25 16:02 HX of Motion [...] 03/31/25 07:10 Respiratory Assessment Respiratory Assessment - manager real estate: Respiratory Tract Infection Hx - manager real estate Hx Respiratory Tract Infection No 03/25/25 16:02 Any additional information?: No STOP Sleep Apnea STOP Sleep Apnea - manager real estate: STOP Sleep Apnea - manager real estate Hx Hypertension Yes: PER PT, CONTROLLED ON [...] Tobacco Use History Tobacco Use History - manager real estate: Tobacco Use History - manager real estate Tobacco Use Smoking Status Former smoker 03/25/25 16:02 Hx Tobacco Use No 03/25/25 16:02 Years Smoking Packs Smoked per Day Smoking Cessation Date was Yes - quit smoking within 15 03/25/25 16:02 within the last 15 years years Hx Smoking Cessation Date 02/24/16 03/25/25 16:02 Hx Smoking Cessation No 03/25/25 16:02 Counseling Any additional information?: No Hematologic Medial History Hematologic Hx - manager real estate: Hematologic Medical Hx - chicken cutter Hx of Blood Transfusion No 03/25/25 16:02 [...] information?: No /Reproduction History /Reproductive History - manager real estate: /Reproductive Hx- manager real estate Hx Now No 03/25/25 16:02 Gestational Age [...] CRNA Cosigner Signature: Date CC: ~ Signed [facility] Work Phone: 1(373) 155-571607-30-2025 History and physical note Author Robe Gill [facility] Note Date/Time March 31, 2025 7:20 am [facility] Medical Records Department [address] [place] [address] History & Physical Exam 03/31/2518 MR#: [id number] Acct: [id number] Name: JENA RAMIREZ Rep #:[id number] : 1955 70 From: Robe Gill DO PCP: Dr. Rito Camp MD Status:[facility] Location: [place] [address] HPI - General General Date of Admission: [...] a cold forceps for histology. EGD 03/17/2017 ([facility]) 2 large food boluses were [...] been 10 years since her last colonoscopy [facility] Medical History Alcohol use Easy bruising Gastric [...] father: Status: Acute Medications: New peg 3350-sod sulf,efie-omb-vja 178.7-7.3-0.5 gram (Suflave) take as directed for [...] Rito Camp MD; Robe Gill DO~ Signed [facility] Work Phone: 1(702) 761-968707-30-2025 Procedure note [facility] Medical Records Department [address] [place] [address] Colonoscopy Report MR#: [id number] Acct: [id number] Name: JENA RAMIREZ Rep #:[id number] : 1955 70 From: Robe Gill DO PCP: Dr. Rito Camp MD Status:[facility] Patient Name: Jena Ramirez Procedure Date: 03/31/2025 [...] for surveillance. Procedure Code(s): --- Professional --- 27775, Colonoscopy, flexible; with biopsy, single or multiple CPT copyright 2021 [employer]. All rights reserved. The codes documented in this report are preliminary and upon coder operator review may be revised to meet current compliance requirements. Robe Gill DO 03/31/2025 9:09:10 AM This report has been signed electronically. Number of Addenda: 0 Note Initiated On: 03/31/2025 8:29 AM 03/31/25908 Date _ Robe Gill DO Cosigner Signature: Date (if indicated) CC: Dr. Rito Camp MD; Robe Gill DO ~ Date Dictated: 03/31/25828 Date Transcribed: Telephone Messenger: RF Signed [facility]07-30-2025 Procedure note [facility] Medical Records Department [address] [place] [address] Provation Physician Letter MR#: [id number] Acct: [id number] Name: JENA RAMIREZ [place] Rep #:[id number] : 1955 70 From: Robe Gill DO PCP: Dr. Rito Camp MD Status:REG [facility] [place] [place] 03/31/2025 Rito Camp MD Re : Colonoscopy [...] DO ~ Date Dictated: 03/31/25828 Date Transcribed: Telephone Messenger: RF Signed [facility]07-30-2025 Procedure note [facility] Medical Records Department [address] [place] [address] EGD Report MR#: [id number] Acct: [id number] Name: JENA RAMIREZ Rep #:[id number] : 1955 70 From: Robe Gill DO PCP: Dr. Rito Camp MD Status:[facility] Patient Name: Jena Ramirez Procedure Date: 03/31/2025 [...] pathology results. Procedure Code(s): --- Professional --- 65202, Esophagogastroduodenoscopy, flexible, transoral; with insertion of guide wire followed by passage of dilator(s) through esophagus over guide wire 35708, 59,51, Esophagogastroduodenoscopy, flexible, transoral; with biopsy, single or multiple CPT copyright 2021 [employer]. All rights reserved. The codes documented in this report are preliminary and upon coder operator review may be revised to meet current compliance requirements. Robe Gill DO 03/31/2025 9:07:01 AM This report has been signed electronically. Number of Addenda: 0 Note Initiated On: 03/31/2025 8:11 AM 03/31/2507 Date _ Robe Gill DO Cosigner Signature: Date (if indicated) CC: Dr. Rito Camp MD; Robe Gill DO ~ Date Dictated: 03/31/25 0811 Date Transcribed: Telephone Messenger: RF Signed [facility]07-30-2025 Procedure note [facility] Medical Records Department [address] [place] [address] Provation Physician Letter MR#: [id number] Acct: [id number] Name: JENA RAMIREZ Rep #:[id number] : 1955 70 From: Robe Gill DO PCP: Dr. Rito Camp MD Status:[facility] 03/31/2025 Rito Camp MD Re : Upper [...] ~ Date Dictated: 03/31/25 0811 Date Transcribed: Telephone Messenger: RF Signed [facility]07-30-2025 Consult note [facility] Medical Records Department [address] [place] [address] Anesthesia Postop Eval I 03/31/25 0900 MR#: [id number] Acct: [id number] Name: JENA RAMIREZ [place] Rep #:[id number] : 1955 70 From: Filipe Rahman PCP: Dr. Rito Camp MD Status:REG SDC Y Race: C Location: [place] [address] Anesthesia: Postop Eval I Current Vital Signs [...] Filipe Mello Signature: Date CC: ~ Signed [facility]07-30-2025 Consult note [facility] Medical Records Department [address] [place] [address] Pre-Anesthesia Evaluation 03/31/25730 MR#: [id number] Acct: [id number] Name: JENA RAMIREZ [place] Rep #:[id number] : 1955 70 From: Nina Pimentel CRNA PCP: Dr. 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 estate Female Yes 03/25/25 16:02 HX of Motion [...] 03/31/25 07:10 Respiratory Assessment Respiratory Assessment - manager real estate: Respiratory Tract Infection Hx - manager real estate Hx Respiratory Tract Infection No 03/25/25 16:02 Any additional information?: No STOP Sleep Apnea STOP Sleep Apnea - manager real estate: STOP Sleep Apnea - manager real estate Hx Hypertension Yes: PER PT, CONTROLLED ON [...] Tobacco Use History Tobacco Use History - manager real estate: Tobacco Use History - manager real estate Tobacco Use Smoking Status Former smoker 03/25/25 16:02 Hx Tobacco Use No 03/25/25 16:02 Years Smoking Packs Smoked per Day Smoking Cessation Date was Yes - quit smoking within 15 03/25/25 16:02 within the last 15 years years Hx Smoking Cessation Date 02/24/16 03/25/25 16:02 Hx Smoking Cessation No 03/25/25 16:02 Counseling Any additional information?: No Hematologic Medial History Hematologic Hx - manager real estate: Hematologic Medical Hx - chicken cutter Hx of Blood Transfusion No 03/25/25 16:02 [...] information?: No /Reproduction History /Reproductive History - manager real estate: /Reproductive Hx- manager real estate Hx Now No 03/25/25 16:02 Gestational Age [...] complaints, except as documented. 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 Rito Camp MD Status:[facility] Location: [place] [address] HPI - General General Date of Admission: [...] a cold forceps for histology. EGD 03/17/2017 ([facility]) 2 large food boluses were [...] been 10 years since her last colonoscopy [facility] Medical History Alcohol use Easy bruising Gastric [...] father: Status: Acute Medications: New peg 3350-sod sulf,dqoj-mxi-pfo 178.7-7.3-0.5 gram (Suflave) take as directed for [...] Rito Camp MD; Robe Gill DO~ Signed [facility]07-30-2025 [facility] Medical Records Department [address] [place] [address] History Physical Exam 03/31/25 0718 MR#: [id number] Acct: [id number] Name: JENA RAMRIEZ Rep #: [id number] : 1955 70 From: Robe Gill DO PCP: Dr. Rito Camp MD Status:[facility] Location: [place] [address] HPI - General General Date of Admission: [...] habits - PMH of COPD and Asthma [place] 11/24/2024 Mild pharyngeal deficits, including... -Delayed swallow onset. -Consistent, trace laryngeal penetration of liquids w/ complete ejection. No aspiration observed. Esophageal deficits... -Retention of pudding in middle and lower esophagus, which fully cleared w/ thin liquid wash. -Small CP bar at the level of C5-C6, which did not impact bolus clearance through the UES. EGD 06/30/2018 ([facility]) - negative for Mcpherson's and H. pylori [...] a cold forceps for histology. [facility] 2 large food boluses were located in [...] been 10 years since her last colonoscopy [facility] Medical History Alcohol use Easy bruising Gastric [...] Unknown Rx gram-22.74 gram (more content not included)...[facility] 03-26-2025 Telephone encounter Note* Telephone Encounter - Melita Le LPN - 03/26/2025 8:56 AM EDT Sent pt ms with result note since pt read message but has not contacted office. Pt is scheduled03/29/25 with [facility] unless pt reads results and cancels appointment. Melita Le LPN [facility]07-25-2025 Miscellaneous Notes* Telephone Encounter - Melita Le [...] panel results were available. [facility] Telephone encounter Note * Telephone Encounter - Melita Le LPN - 03/24/2025 9:11 AM EDT Left additional message for pt to contact office. Also sent msg for pt to contact Triage Nurse. Melita Le LPN [facility]07-21-2025 Telephone encounter Note* Telephone Encounter - Ann [...] Ann Onofre March 22, 2025 1:05 PM [facility]07-21-2025 Miscellaneous Notes* Telephone Encounter - Ann Onofre [...] 22, 2025 1:05 PM [facility] Telephone encounter Note * Telephone Encounter - Melita Le LPN - 03/18/2025 11:34 AM EDT Left message for pt to contact office. Melita Le LPN [facility]07-17-2025 Telephone encounter Note* Telephone Encounter - Shanita [...] before the full panel results were available. [facility]07-16-2025 Telephone encounter Note* Telephone Encounter - Jacki [...] been updated to match the prescriber directory. [facility]07-16-2025 Miscellaneous Notes* Telephone Encounter - Jacki Mark [...] - 03/17/2025 9:00 AM EDT Benito madrid [facility] calls with prior authorization questions for [employer]. Questions Answered. Willfax results of prior authorization within 72 hours. Please Watch for response. PRIOR AUTHORIZATION Medication for Prior Authorization: [employer] Insurance Company: [employer] Patient insurance ID number: [id number] Albania Gill RN documented in this encounterMercy Health [facility]07-[facility] Telephone encounter Note * Telephone Encounter - Jacki Mark LPN - 03/17/2025 10:27 AM EDT Covermymeds [employer] chance'gavi Did request PA electronically to review. [facility]07-16-2025 Telephone encounter Note* Telephone Encounter - Albania Gill RN - 03/17/2025 9:00 AM EDT Benito from [facility] calls with prior authorization questions for [employer]. Questions Answered. [employer] results of prior authorization within 72 hours. Please Watch for response. PRIOR AUTHORIZATION Medication for Prior Authorization: [employer] Insurance Company: [employer] Patient insurance ID number: [id number] Albania Gill RN [facility]07-14-2025 NoteHNO ID: [id number] Author: SHANITA GREEN PA-C Service: ? Author Type: Physician Chief Engineering Division Type: Progress Notes Filed: 03/15/2025 11:07 Note [...] APPR UNI/BI Tubal lig (more content not included)...[facility]07-14-2025 History of Present illness Narrative* Shanita Green [...] time - Patient to follow up with painter airbrush Dr. Epstein for further evaluation and potential interventions. Shanita Green PA-C Recording using [employer] software for draft documentation of the visit was discussed with the patient/authorized customer success representative; all questions welcomed and answered. Patient/authorized customer success representative agreed to proceed documented in this encounterMercy Health [facility]06-10-2025 Evaluation note* Diagnosis Onset Date Resolution Status [...] 9:31am Esophagitis acute April 20, 2025 9:31am [facility] Work Phone: 1(849) 898-458205-20-2025 NoteHNO ID: [id number] Author: MELITA LE LPN Service: ? Author Type: LICENSED NURSE Type: Progress Notes Filed: 01/19/2025 12:14 Note Text: Scan on 01/18/2025 9:18 AM by Provider, [facility]: Consultation - PT/OT/SpeechCleveland Clinic [facility]05-06-2025 Telephone encounter Note* Telephone Encounter - Melita Le LPN - 01/05/2025 11:22 AM EDT Pt notified of same. Melita Le LPN [facility]05-06-2025 Miscellaneous Notes* Telephone Encounter - Melita Le LPN - 01/05/2025 11:22 AM EDT Pt notified of same. Melita Le LPN * Telephone Encounter - Shanita Green PA-C - 01/05/2025 11:16 AM EDT Xray is negative for fracture. Shanita Green PA-C documented in this encounterMercy Health Tiffin Hospital05-06-2025 Telephone encounter Note * Telephone Encounter - Shanita Green PA-C - 01/05/2025 11:16 AM EDT Xray is negative for fracture. Shanita Green PA-C [facility]05-06-2025 History of Present illness Narrative* James Brewer [...] PATIENT PRESENTS WITH AN IMPLANTABLE OR ATTACHED BLANKET WEAVER: No RADIOLOGY DEPARTMENT: General X-ray: Exam(s) Completed: Lower Extremity X- Ray(s): Foot, Right PERIPHERAL IV DATA: Not applicable SIGNED BY: RT Berry(Renata) January 05, 2025 10:41 AM documented in this encounterMercy Health Tiffin Hospital05-06-2025 NoteHNO ID: [id number] Author: JAMES BREWER RT(R) Service: ? Author Type: Marine Engineering Teacher Type: Progress Notes Filed: 01/05/2025 10:50 Note [...] PATIENT PRESENTS WITH AN IMPLANTABLE OR ATTACHED BLANKET WEAVER: No RADIOLOGY DEPARTMENT: General X-ray: Exam(s) Completed: Lower Extremity X-Ray(s): Foot, Right PERIPHERAL IV DATA: Not applicable SIGNED BY: RT Berry(Renata) January 05, 2025 10:41 [facility]05-06-2025 NoteHNO ID: [id number] Author: SHANITA GREEN PA-C Service: ? Author Type: Physician Chief Engineering Division Type: Progress Notes Filed: 01/05/2025 10:47 Note [...] Undergoing annual monitoring for pulmonary nodules by dope mixer. - Recent lung scan performed at the [...] Polyps Father Hypertension Fathe (more content not included)...[facility] 01-05-2025 History of Present illness Narrative* Shanita [...] Undergoing annual monitoring for pulmonary nodules by dope mixer. - Recent lung scan performed at the [...] 1. Injury of right toe, initial encounter (C84.838O) - Ordered X-ray of the right foot [...] the plan. Shanita Green PA-C Recording using [employer] software for draft documentation of the visit was discussed with the patient/authorized customer success representative; all questions welcomed and answered. Patient/authorized customer success representative agreed to proceed documented in this encounterMercy Health Tiffin Hospital05-05-2025 NoteHNO ID: [id number] Author: MELITA LE LPN Service: ? Author Type: LICENSED NURSE Type: Progress Notes Filed: 01/04/2025 07:34 Note Text: Scan on 01/03/2025 12:29 AM by ProviderJenna PA-C: CT ScanCleveland Clinic Medina Hospital05-05-2025 History of Present illness Narrative* Melita Le LPN - 01/04/2025 7:34 AM EDT Scan on 01/03/2025 12:29 AM by Provider, MU West: CT Scan documented in this encounterMercy Health Tiffin Hospital05-04-2025 Radiology Diagnostic study note [facility] Imaging Services [address] [place] [id number] Lung Screening MR#: [id number] Acct: [id number] Name: JENA RAMIREZ Rep #: [id number] : 1955 F 69 From: Yoana Lopez MD PCP: Dr. Rito Camp MD Status: [facility] Study:Low Dose CT Lung Screening Date of Exam : 01/01/25 Exam# [id number] Ordering Dr: Tiffanie Dee HOLTER TECHNICIAN HOLTER TECHNICIAN-C PROCEDURE: LOW DOSE CT LUNG SCREENING 01/01/2025 REASON FOR EXAM: SMOKER QUIT 2010 TECHNIQUE: Low Dose CT Lung screening without contrast. Coronal and Sagittal reconstructionseries were provided. One or more dose reduction techniques were used (e.g., Automated exposure control, adjustment of the mA and/or kV according to patient size, use of iterative reconstruction technique). REFERENCE LINK: [facility] Lung-RADS RADIATION DOSE SUMMARY: CTDlvol: 2.0 mGy [...] artery calcification (CAC) is present Reading Location: [id number] CC: TRACI Dee; Dr. Rito Camp MD ~ Telephone Messenger: Signed [facility]04-29-2025 Telephone encounter Note* Telephone Encounter - [...] insurance won't cover it. Pt uses [facility]. Magdy Le LPN [facility]04-29-2025 Miscellaneous Notes* Telephone Encounter - Melita Le [...] insurance won't cover it. Pt uses [facility]. Magdy Le LPN * Telephone Encounter - [...] that may be better. documented in this encounterMercy Health Tiffin Hospital04-28-2025 Telephone encounter Note * Telephone Encounter - Rito Camp MD - 12/28/2024 4:18 PM EDT Let patient know her bone study shows her bone strength has gotten worse. Her 10 year risk of a major bone fracture is 21%. We can either place her back on Fosamax once a week or have her see endo todiscuss other alternatives that may be better. [facility]04-28-2025 History of Present illness Narrative* Bashir Landa [...] PATIENT PRESENTS WITH AN IMPLANTABLE OR ATTACHED BLANKET WEAVER: No RADIOLOGY DEPARTMENT: Bone Density PERIPHERAL IV DATA: Not applicable SIGNED BY: RT Rivka(R) December 28, 2024 8:52 AM documented in this encounterMercy Health Tiffin Hospital04-28-2025 NoteHNO ID: [id number] Author: BASHIR LANDA RT(R) Service: ? Author [...] PATIENT PRESENTS WITH AN IMPLANTABLE OR ATTACHED BLANKET WEAVER: No RADIOLOGY DEPARTMENT: Bone Density PERIPHERAL IV DATA: Not applicable SIGNED BY: RT Rivka(R) December 28, 2024 8:52 [facility]04-17-2025 Evaluation note* Diagnosis Onset Date Resolution Status Admit Date Dysphagia acute December 17 10:25am Encounter for screening colonoscopy acute December 17, 2024 10:25am Family history of colon canc er in father acute December 17, 2024 10:25am [facility] Work Phone: 1(421) 628-613304-17-2025 Evaluation note* Diagnosis Onset Date Resolution Status [...] in father acute March 31, 2025 6:50am [facility] Work Phone: 1(528) 858-776304-04-2025 Telephone encounter Note* Telephone Encounter - Mitzy Dewey LPN - 12/04/2024 10:48 AM EDT Phoned patient and she reported she was aware of results and she had referral already placed, testing scheduled and ST ordered already. She stated she cancelled her follow up with Dr Camp but will let us know if she needs anything else. Mitzy Dewey LPN [facility]04-04-2025 Miscellaneous Notes* Telephone Encounter - Mitzy [...] results. Aury Newton MA' documented in this encounterMercy Health Tiffin Hospital04-02-2025 Telephone encounter Note * Telephone Encounter - Charlie Dodge MD - 12/02/2024 11:27 AM EDT Barium swallow results reviewed. Would have patient follow recommendations as written. Let us know if they need speech therapy referral order. Keep f/u with Dr. Camp next week. [facility] Work Phone: 1(521) 406-457904-02-2025 Telephone encounter Note* Telephone Encounter - Aury Newton MA - 12/02/2024 11:24 AM EDT Scan on 11/30/2024 10:14 AM by Provider, External, PAErnieC: GI Review results. Aury Newton MA' [facility]04-01-2025 Telephone encounter Note* Telephone Encounter - Cami Kidd MA - 12/01/2024 3:12 PM EDT Pt notified and requested it be sent to Dr jackson office. Faxed info. Cami Kidd MA [facility]04-01-2025 Miscellaneous Notes* Telephone Encounter - Caim Kidd MA - 12/01/2024 3:12 PM EDT [...] said she had swallowing study done at [facility] on 11/24/2024. She is upset that PCP has not gotten copy of the results yet. She called [facility] med recs dept yesterday and was told being faxed as she was talking to the lady. She talking about bringing her copy to the office and have copy made for PCP. She was told needs Gastro consult, she was hoping to stay with [facility] if PCP wants to give thereferral. Please advise documented in this encounterMercy Health [facility] Hospital04-01-2025 Telephone encounter Note * Telephone Encounter - Alex Brown APRN.CNP - 12/01/2024 2:48 PM EDT Please let patient know I have reviewed her swallow study and placed GI referral. [facility]04-01-2025 Telephone encounter Note* Telephone Encounter - Kasey Becker LPN - 12/01/2024 1:39 PM EDT Patient calling said she had swallowing study done at [facility] on 11/24/2024. She is upset that PCP has not gotten copy of the results yet. She called [facility] med recs dept yesterday and was told being faxed as she was talking to the lady. She talking about bringing her copy to the office and have copy made for PCP. She was told needs Gastro consult, she was hoping to stay with [facility] if PCP wants to give thereferral. Please advise [facility]03-31-2025 Telephone encounter Note* Telephone Encounter - [...] Angella Kirkland November 30, 2024 10:55 AM [facility] Work Phone: 1(436) 712-295003-31-2025 Miscellaneous Notes* Telephone Encounter - Angella Stevens [...] 30, 2024 10:55 AM documented in this encounterMercy Health Tiffin Hospital03-25-2025 Procedure note [facility] Speech Pathology [address] [place] [address] Modified Barium Swallow Study MR#: [id number] Acct: [id number] Name: JENA RAMIREZ Rep #:[id number] : 1955 69 From: Krysta King [facility]COIL BUILDER Modified Barium Swallow Patient Information Study Date: 11/24/24 Study Time: 12:45 Direct Billable Minutes: 70 Total Minutes procedure & reportin Diagnosis: Dysphagia R13.10 Referring Physician: Rito Camp Reason for Referral: assess swallow function, assess risk for aspiration, and determine recommendations for least restrictive diet textures and compensatory strategies to facilitate safe po intake. Medical History: Patient recently seen at [facility] for outpatient swallowing evaluation 10/20/2024 to address [...] in swallow onset. -GERD education. When this COIL BUILDER recommended liquid wash between bites, the patient reported she onlydrinks her beer before or after a meal. COIL BUILDER recommended water to wash foods during the [...] Status Active ST Patient: Active Contact Information [facility] Speech Therapy:: Krysta Tatum M.A. [facility]COIL BUILDER? Speech-Language Pathologist?? [facility] [address] [place] [address]? [email or web address]?? [phone] 11/24/24 Quan Niño CCC-COIL BUILDER> Date/Time Krysta Tatum M.A. CCC-COIL BUILDER Co-Signature Required for all Medicare patients Date/Time Co-Signature CC: ~ [facility]03-11-2025 NoteHNO ID: [id number] Author: MELITA LE LPN Service: ? Author Type: LICENSED NURSE Type: Progress Notes Filed: 11/10/2024 12:54 Note Text: Scan on 11/10/2024 9:40 AM by ProviderJenna PA-C: Consultation - Anesthesia/PainC[facility]03-11-2025 History of Present illness Narrative* Melita Le LPN - 11/10/2024 12:54 PM EDT Scan on 11/10/2024 9:40 AM by Jenna Garcias PA-C: Consultation - Anesthesia/Pain documented in this encounterMercy Health Tiffin Hospital2025 Telephone encounter Note * Telephone Encounter - Mary Ann Gamboa - 11/09/2024 10:23 AM EDT Physician: Naina Call from patient requesting refill. Please Call in Last OV: 08/03/24 with Bran Future OV: 12/08/24 with Naina Requested Prescriptions Pending Prescriptions Disp Refills QUEtiapine (SEROQUEL) 25 mg tablet 30 tablet 1 Sig: Take 1 tablet by mouth daily at bedtime. Pharmacy Name: [facility] Phone #: [phone] Mary Ann Gamboa [facility]2025 Miscellaneous Notes* Telephone Encounter - Mary Ann Gamboa - 11/09/2024 10:23 AM EDT Physician: Naina Call from patient requesting refill. Please Call in Last OV: 08/03/24 with Bran Future OV: 12/08/24 with Naina Requested Prescriptions Pending Prescriptions Disp Refills QUEtiapine (SEROQUEL) 25 mg tablet 30 tablet 1 Sig: Take 1 tablet by mouth daily at bedtime. Pharmacy Name: [facility] Phone #: [phone] Mary Ann Gamboa documented in this encounterMercy Health [facility]in Hospital03-06-2025 NoteHNO ID: [id number] Author: ?, ?, ? Service: ? Author Type: ? Type: Progress Notes Filed: 11/05/2024 14:37 Note Text: POPULATION HEALTH NAVIGATION OUTREACH Action/[facility] Support: Called pt to schedule an appt in Pain Management. Lvm for pt to call [phone] for scheduling. Any agent can assist. Reason for Outreach Care Gap/HCC or Scheduling Wellness Visits Care Gaps due: N/A Patient Contacted: Unable or unnecessary to reach patient: Left message Vine message sent Navigation Signature: Sierra Angeles November 05, 2024 2:36 [facility]03-06-2025 History of Present illness Narrative* Sierra Angeles - 11/05/2024 2:36 PM EST POPULATION HEALTH NAVIGATION OUTREACH Action/[facility] Support: Called pt to schedule an appt in Pain Management. Lvm for pt to call [phone] for scheduling. Any agent can assist. Reason for Outreach Care Gap/HCC or Scheduling Wellness Visits Care Gaps due: N/A Patient Contacted: Unable or unnecessary to reach patient: Left message Vine message sent Navigation Signature: Sierra Angeles November 05, 2024 2:36 PM documented in this encounterMercy Health [facility]in Hospital03-06-2025 NotePatient Outreach (NETNAV) DIONY RAMIREZ ([id number]) 1955 F Date Time Provider Department 11/05/24 NO PCP (HIST) NETNAV During your visit today, we recorded the following information about you: Sierra Angeles 11/05/2024 2:37 PM Signed POPULATION HEALTH NAVIGATION OUTREACH Action/[facility] Support: Called pt to schedule an appt in Pain Management. Lvm for pt to call [phone] for scheduling. Any agent can assist. Reason for Outreach Care Gap/HCC or Scheduling Wellness Visits Care Gaps due: N/A Patient Contacted: Unable or unnecessary to reach patient: Left message [employer] message sent Navigation Signature: Sierra Angeles November [...] [Z71.8*09/27/2022 Ectatic thoracic ao (more content not included)...[facility] 11-04-2024 Telephone encounter Note* Telephone Encounter - Rosita Melgoza RN - 11/04/2024 7:03 PM EST Office notes from 08/03/24 and 10/01/24, consult order, hip x ray from 08/03/24, demographics printed and faxed to Dr. Montilla's office at [phone]. Called pt and notified that she should be able tocontact Dr. Montilla's office for an appt tomorrow. [facility]03-05-2025 Miscellaneous Notes* Telephone Encounter - Rosita Melgoza RN - 11/04/2024 7:03 PM EST Office notes from 08/03/24 and 10/01/24, consult order, hip x ray from 08/03/24, demographics printed and faxed to Dr. Montilla's office at [phone]. Called pt and notified that she should [...] is not helping either. documented in this encounterMercy Health Tiffin Hospital03-05-2025 Telephone encounter Note * Telephone Encounter - Rito Camp MD - 11/04/2024 4:13 PM EST Order placed for consult to Dr. Epstein. Please send copy of office note from 10/01/2024 and 08/03/2025 along with the hip x-ray from 08/03/2024. [facility]03-05-2025 Telephone encounter Note* Telephone Encounter - [...] Dr. Camp prescribed is not helping either. [facility]03-03-2025 Telephone encounter Note* Telephone Encounter - Melita [...] Le LPN November 02, 2024 10:23 AM [facility]03-03-2025 Miscellaneous Notes* Telephone Encounter - Melita Le [...] Thank you. Rakel Newton. documented in this encounterMercy Health Tiffin Hospital03-03-2025 Telephone encounter Note * Telephone Encounter [...] 12/08/2024 Please advise. Thank you. Rakel Newton. [facility]02-24-2025 Telephone encounter Note* Telephone Encounter - Elana Waller PSS - 10/26/2024 4:27 PM EST CD READY FOR ACTUARIAL INTERNSHIP AT [facility] Pt is aware [facility]02-24-2025 Miscellaneous Notes* Telephone Encounter - Elana Waller PSS - 10/26/2024 4:27 PM EST CD READY FOR ACTUARIAL INTERNSHIP AT [facility] Pt is aware * Telephone Encounter - Truman Campos - 10/26/2024 1:20 PM EST Patient is requesting her HIP xray from 08/03/24 be placed on a disc. Thank you. documented in this encounterMercy Health [facility] Hospital02-24-2025 Telephone encounter Note * Telephone Encounter - Truman Campos - 10/26/2024 1:20 PM EST Patient is requesting her HIP xray from 08/03/24 be placed on a disc. Thank you. [facility]02-21-2025 NoteHNO ID: [id number] Author: AURY NEWTON MA Service: ? Author Type: Pneumatic System Conveyor Operator Type: Progress Notes Filed: 10/23/2024 14:48 Note Text: Order/Demo faxed to [facility]. Referral placed. Aury Newton [facility]02-21-2025 NoteHNO ID: [id number] Author: RITO CAMP MD Service: ? Author Type: Physician Type: Progress Notes Filed: 10/23/2024 14:13 Note Text: Order readyCleveland Clinic [facility] Hospital02-21-2025 NoteHNO ID: [id number] Author: KASEY BECKER LPN Service: ? Author Type: LICENSED NURSE Type: Progress Notes Filed: 10/23/2024 11:00 Note Text: Patient calling said the Speech Therapist did not have the order at [facility] for her to schedule appt. So patient is asking if PCP could give the order for the Barium swallow/cookie swallow and fax it to [facility] please. Patient phone number is [phone]. Pending order, needs diagnosis. Please advisCoshocton [facility]02-[facility]-2025 NoteHNO ID: [id number] Author: AURY NEWTON MA Service: ? Author Type: Pneumatic System Conveyor Operator Type: Progress Notes Filed: 10/23/2024 09:21 Note Text: Spoke with patient and she indicated that the tech who completed the test would be sending an order. Patient has not heard from anyone one scheduling. Gave patient the scheduling number and told her if there is an issue with needing an order to let us know and we can send over. Aury Newton [facility]02-18-2025 NoteHNO ID: [id number] Author: RITO CAMP MD Service: ? Author Type: Physician Type: Progress Notes Filed: 10/20/2024 16:10 Note Text: Find out from speech therapy If I need to order the modified Barium Swallow/Cookie swallow (MBSS) or do they get it set up?[facility]02-18-2025 History of Present illness Narrative* Rito Camp MD - 10/20/2024 4:09 PM EST Find out from speech therapy If I need to order the modified Barium Swallow/Cookie swallow (MBSS) or do they get it set up? * Melita Le LPN - 10/20/2024 1:59 PM EST Scan on 10/20/2024 1:01 PM by Provider, Jenna PAErnieC: Consultation - PT/OT/Speech documented in this encounterMercy Health Tiffin Hospital02-18-2025 NoteHNO ID: [id number] Author: MELITA LE LPN Service: ? Author Type: LICENSED NURSE Type: Progress Notes Filed: 10/20/2024 13:59 Note Text: Scan on 10/20/2024 1:01 PM by Provider, Jenna PA-C: Consultation - PT/OT/SpeechCleveland Clinic [facility]02-11-2025 History of Present illness Narrative* Mary Ann Oscar, PT - 10/13/2024 10:48 AM EST Program_ID:[id number] Access Code: [email or web address] URL: [email or web address] Date: 10-13-2024 Prepared By: Mary Ann Oscar [...] THERAPY PHYSICAL THERAPY TREATMENT NOTE ASSESSMENT: Diony Ramriez tolerated the session with no issues. She [...] and function . Patient education as noted. Self-Fdc Management: 1: encouraged taking rest before pt. body no longer even allows her to push herself. 2: discussed goal to manage low back pain rather than do nothing while symptoms do not change 3: discussed goal of determining at direction of movement that the low back responds well to at this point 4: advised carrying a core inserter purse, be sure to switch sides Skilled [...] Mary Ann Oscar PT documented in this encounterMercy Health Tiffin Hospital02-11-2025 NoteHNO ID: [id number] Author: MARY ANN OSCAR PT Service: ? Author Type: Physical Therapist Type: Progress Notes Filed: 10/27/2024 10:33 Note Text: 10/27/2024 [facility] PHYSICAL THERAPY DISCONTINUANCE OF CARE Plan of Care Period: Start of Care Date: 09/29/24 Last Visit Date: 10/13/2024 Therapy Program: The following is a summary of the interventions provided for this episode of care; Therapeutic exercise and Self-skilled nursing management Assessment: Based on most recent visit, [...] or scheduled additional follow-up appointments. Mary Ann Oscar, PT Episode Visit Count: 2 Therapist That [...] and function . Patient education as noted. Self-Fdc Management: 1: encouraged taking rest before pt. body no longer even allows her to push herself. 2: discussed goal to manage low back pain rather than do nothing while symptoms do not change 3: discussed goal of determining at direction of movement that the low back responds well to at this point 4: advised carrying a core inserter purse, be sure to switch sides Skilled [...] Minutes: 10 Skilled Treatme (more content not included)...[facility] 10-01-2024 Instructions* Patient Instructions* Rito Camp [...] review all the medicines you take, even eoko-bky-lopalys medicines. As you get older, the way [...] have certain medical conditions. documented in this encounterMercy Health Tiffin Hospital01-30-2025 History of Present illness Narrative* Rito [...] - General (Family Medicine) Suleman Gustafson as Systems Librarian Alex Brown APRN.LUIS FELIPE as Room Service Food Server (Family Medicine) Shanita Green PA-C as Room Service Food Server (Family Medicine) Dr. Epstein: Pin management Dr. [...] Lymph 1.00 - 4.00 k/uL 1.76 1.58 [place]% % 10.0 9.5 Abs [place] <0.87 k/uL 0.68 0.62 Eosin% % 3.4 [...] Negative Ketones, Urine Negative Negative Negative Specific Watkins, Ur 1.005 - 1.030 1.005 1.015 Hemoglobin/Blood,Ur [...] a swallowing test with PHYSICAL THERAPY at [facility] 19. Advance directive discussed with patient [...] which included preparing to see the patient, [id number] patient care, completing clinical documentation, performing a medically appropriate examination, counseling and educating the patient/family/caregiver and ordering medications, tests, or procedures. Rito Camp MD documented in this encounterMercy Health [facility]iffin [facility]01-30-2025 NoteHNO ID: [id number] Author: RITO CAMP MD Service: ? Author [...] - General (Family Medicine) Suleman Gustafson as Systems Librarian Alex Brown APRN.LUIS FELIPE as Room Service Food Server (Family Medicine) Shanita Green PA-C as Room Service Food Server (Family Medicine) Dr. Epstein: Pin management Dr. [...] of lumbar spine 05/06/2014 Ectatic thoracic aorta ([facility]) 12/04/2022 CT done 12/2022 Elevated blood sugar 01/27/2021 Emphysema of lung ([facility]) 03/18/2015 Essential hypertension, benign 02/21/2015 Ex-smoker 01/27/2021 [...] future controlled med scripts Retinal detachment in [facility] (more content not included)...[facility]01-29-2025 Telephone encounter Note* Telephone Encounter - Jack [...] Angella Kirkland September 30, 2024 3:39 PM [facility]01-29-2025 Miscellaneous Notes* Telephone Encounter - Angella [...] 30, 2024 3:39 PM documented in this encounterMercy Health Tiffin Hospital01-28-2025 History of Present illness Narrative* Mary Ann Oscar, PT - 09/29/2024 12:26 PM EST Program_ID:[id number] Access Code: [email or web address] URL: [email or web address] Date: 09-29-2024 Prepared By: Mary Ann Oscar [...] Planned: 6 Planned Treatment Interventions: Therapeutic exercise (90684), Neuromuscular re- education (77085), Manual therapy (01269), Therapeutic activities (39689), Self- skilled nursing management (65143), Gait Training (07990) PLAN FOR NEXT VISIT: Pt. has $35 [...] Lumbar Extension: Moderate limitation Lumbar R Side [place]: Minimal limitation Lumbar L Side [place]: Minimal limitation Lumbar R Side-Bend: Normal Lumbar [...] Demonstration TREATMENT: PT Treatment Interventions: Therapeutic Exercise, Self-Fdc Management Evaluation Therapeutic Exercise: 1: *Access Code: [email or web address] URL: [email or web address] Date: 09/29/2024 Prepared by: Mary Ann Hernandez [...] and function . Patient education as noted. Self-Fdc Management: 1: discussed lumbar flexion directional preference [...] Mary Ann Oscar PT documented in this encounterMercy Health Tiffin Hospital01-28-2025 NoteHNO ID: [id number] Author: MARY ANN OSCAR PT Service: ? [...] Planned: 6 Planned Treatment Interventions: Therapeutic exercise (47358), Neuromuscular re-education (51024), Manual therapy (17306), Therapeutic activities (25883), Self-skilled nursing management (95374), Gait Training (10729) PLAN FOR NEXT VISIT: Pt. has $35 [...] (within normal limits) [place] (more content not included)...[facility]01-14-2025 Telephone encounter Note* Telephone Encounter - Kasey Becker LPN - 09/15/2024 1:00 PM EST Patient calling she had appt today in Pulmonary office with Letha Emery HOLTER TECHNICIAN at Dr Suleman Gustafson office. Asking for a copy of the CR Chest report faxed to [phone]. Printed report from 12/2022 and faxed as requested. [facility]01-14-2025 Miscellaneous Notes* Telephone Encounter - Kasey Becker LPN - 09/15/2024 1:00 PM EST Patient calling she had appt today in Pulmonary office with Letha Emery HOLTER TECHNICIAN at Dr Suleman Gustafson office. Asking for a copy of the CR Chest report faxed to [phone]. Printed report from 12/2022 and faxed as requested. documented in this encounterMercy Health Tiffin Hospital01-14-2025 Evaluation note* Diagnosis Onset Date Resolution Status Admit Date Asthma-COPD overlap syndrome chronic September 15, 2024 10:58am Nicotine dependence, cigarettes, in remission chronic September 15, 2024 10:58am [facility] Work Phone: 1(208) 997-480101-14-2025 Evaluation note* Diagnosis Onset Date Resolution Status Admit Date Asthma-COPD overlap syndrome chronic September 15, 2024 10:58am Nicotine dependence, cigarettes, in remission chronic September 15, 2024 10:58am Dysphagia acute December 17 10:25am Encounter for screening colonoscopy acute December 17, 2024 10:25am Family history of colon canc er in father acute December 17, 2024 10:25am [facility] Work Phone: 1(829) 843-821801-07-2025 Telephone encounter Note* Telephone Encounter - Kasey Becker LPN - 09/08/2024 12:52 PM EST Phoned patient aware fasting lab work orders in computer for her to complete. [facility]01-07-2025 Miscellaneous Notes* Telephone Encounter - Kasey [...] placed. Elizabeth Eckert LPN documented in this encounterMercy Health Tiffin Hospital01-07-2025 Telephone encounter Note * Telephone Encounter - Shanita Green PA-C - 09/08/2024 12:33 PM EST Labs placed [facility]01-07-2025 Telephone encounter Note* Telephone Encounter - [...] orders have been placed. Elizabeth Eckert LPN [facility]12-12-2024 NoteHNO ID: [id number] Author: CHRISTINE PARKER RN Service: ? Author [...] more often than normal? 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, the following disposition is advised: No symptoms [...] Christine Parker RN August 13, 2024 11:20 [facility]12-12-2024 History of Present illness Narrative* Christine [...] more often than normal? 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, the following disposition is advised: No symptoms [...] 13, 2024 11:20 AM documented in this encounterMercy Health Tiffin Hospital12-12-2024 NotePatient Outreach ([facility]) DIONY RAMIREZ ([id number]) 1955 F Date Time Provider Department 08/13/24 [...] more often than normal? 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, the following disposition is advised: No symptoms [...] coronavirus disease (C (more content not included)... [facility]12-11-2024 NoteHNO ID: [id number] Author: CHRISTINE PARKER RN Service: ? Author Type: Registered Nurse Type: Progress Notes Filed: 08/12/2024 15:15 Note Text: [facility] Telephonic Outreach Provider Action/FYI 1st attempt Contacted for: Routine Telephonic Outreach Contact made with patient: No, left message. Christine Parker RN August 12, 2024 3:14 [facility]12-11-2024 History of Present illness Narrative* Christine Parker RN - 08/12/2024 3:07 PM EST [facility] Telephonic Outreach Provider Action/FYI 1st attempt Contacted for: Routine Telephonic Outreach Contact made with patient: No, left message. Christine Parker RN August 12, 2024 3:14 PM documented in this encounterMercy Health Tiffin Hospital12-11-2024 NotePatient Outreach ([facility]) DIONY RAMIREZ ([id number]) 1955 F Date Time Provider Department 08/12/24 [...] Encounter Status:Closed by CHRISTINE PARKER RN on 08/12/24[facility]12-04-2024 Telephone encounter Note* Telephone Encounter - Shanita Green PA-C - 08/05/2024 2:33 PM EST Consult placed. [facility]12-04-2024 Miscellaneous Notes* Telephone Encounter - Shanita [...] PhysicalTherapy. Shanita Green PA-C documented in this encounterMercy Health Tiffin Hospital12-04-2024 Telephone encounter Note * Telephone Encounter - Aury Newton MA - 08/05/2024 1:56 PM EST Patient notified and voiced understanding. She is will to try a few visits to see. Please place consult and send to scheduling. Aury Newton MA [facility]12-04-2024 Telephone encounter Note* Telephone Encounter - Shanita Green PA-C - 08/05/2024 11:57 AM EST Let patient know that her xray shows arthritic changes. No acute findings. Would recommend PhysicalTherapy. Shanita Green PA-C [facility]12-02-2024 History of Present illness Narrative* James [...] PATIENT PRESENTS WITH AN IMPLANTABLE OR ATTACHED BLANKET WEAVER: No RADIOLOGY DEPARTMENT: General X-ray: Exam(s) Completed: Pelvis X-Ray: Pelvis with Hip Left PERIPHERAL IV DATA: Not applicable SIGNED BY: RT Berry(Renata) August 03, 2024 10:11 AM documented in this encounterMercy Health Tiffin Hospital12-02-2024 NoteHNO ID: [id number] Author: JAMES BREWER RT(R) Service: ? Author Type: Marine Engineering Teacher Type: Progress Notes Filed: 08/03/2024 10:21 Note [...] PATIENT PRESENTS WITH AN IMPLANTABLE OR ATTACHED BLANKET WEAVER: No RADIOLOGY DEPARTMENT: General X-ray: Exam(s) Completed: Pelvis X-Ray: Pelvis with Hip Left PERIPHERAL IV DATA: Not applicable SIGNED BY: RT Berry(Renata) August 03, 2024 10:11 [facility]12-02-2024 Instructions* Patient Instructions* Alex Brown APRN.MERCHANDISE EXAMINER - 08/03/2024 9:31 AM EST Magnesium glycinate-200mg at night documented in this encounterMercy Health Tiffin Hospital12-02-2024 NoteHNO ID: [id number] Author: ALEX BROWN APRN.LUIS FELIPE Service: ? [...] mcg/actuation inhaler BIOTIN OR (more content not included)...[facility]12-02-2024 History of Present illness Narrative* Alex Brown, MARKETER.MERCHANDISE EXAMINER - 08/03/2024 9:21 AM EST Chief Complaint [...] HIP GENERAL 3V PELV/AP/LAT LEFT Alex Brown APRN.MERCHANDISE EXAMINER documented in this encounterMercy Health Tiffin Hospital11-29-2024 History of Present illness Narrative* Bashir [...] PATIENT PRESENTS WITH AN IMPLANTABLE OR ATTACHED BLANKET WEAVER: No RADIOLOGY DEPARTMENT: General X-ray: Exam(s) Completed: Chest X-Ray PERIPHERAL IV DATA: Not applicable SIGNED BY: CLAUDIA Tineo) July 31, 2024 11:03 AM documented in this encounterMercy Health Tiffin Hospital11-29-2024 NoteHNO ID: [id number] Author: BASHIR LANDA RT(R) Service: ? Author [...] PATIENT PRESENTS WITH AN IMPLANTABLE OR ATTACHED BLANKET WEAVER: No RADIOLOGY DEPARTMENT: General X-ray: Exam(s) Completed: Chest X-Ray PERIPHERAL IV DATA: Not applicable SIGNED BY: Bashir Landa, RT(R) July 31, 2024 11:03 [facility]11-29-2024 NoteHNO ID: [id number] Author: SHANNA NEWTON APRN.MERCHANDISE EXAMINER Service: ? Author Type: Nurse Practitioner Type: [...] of lumbar spine 05/06/2014 Ectatic thoracic aorta ([facility]) 12/04/2022 CT done 12/2022 Elevated blood sugar 01/27/2021 Emphysema of lung ([facility]) 03/18/2015 Essential hypertension, benign 02/21/2015 Ex-smoker 01/27/2021 [...] mcg/actuation inhaler BIOTIN OR (more content not included)...[facility]11-29-2024 History of Present illness Narrative* Shanna Newton APRN.[facility] - 07/31/2024 10:56 AM EST CC: [...] for pneumonia or aspiration. Please clinically correlate. Telephone Messenger: LEONARDO Transcribe Date/Time: Jul 31 2024 11:30A [...] Patient agreeable to treatment plan. Shanna Newton APRN.MERCHANDISE EXAMINER documented in this encounterMercy Health Tiffin Hospital11-20-2024 NoteHNO ID: [id number] Author: MELITA LE LPN Service: ? Author Type: LICENSED NURSE Type: Progress Notes Filed: 07/22/2024 08:12 Note Text: Scan on 07/21/2024 4:53 PM by Jenna Garcias PA-C: Consultation - [facility]11-20-2024 History of Present illness Narrative* Melita Le LPN - 07/22/2024 8:11 AM EST Scan on 07/21/2024 4:53 PM by Jenna Garcias PA-C: Consultation - Pulmonary documented in this encounterMercy Health Tiffin Hospital11-14-2024 NoteHNO ID: [id number] Author: CHRISTINE PARKER RN Service: ? Author [...] more often than normal? 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 Routed to: No Action Needed PALOMA Education Provided this Outreach: No Pt reports she is doing ok and she is not having any new or worsening cdm concerns at this time. She will contact the office with any needs. Christine Parker RN July 16, 2024 3:26 [facility]11-14-2024 History of Present illness Narrative* Christine Parker [...] more often than normal? 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 Routed to: No Action Needed PALOMA Education Provided this Outreach: No Pt reports she is doing ok and she is not having any new or worsening cdm concerns at this time. She will contact the office with any needs. Christine Parker RN July 16, 2024 3:26 PM documented in this encounterMercy Health Tiffin Hospital11-14-2024 NotePatient Outreach ([facility]) DIONY RAMIREZ ([id number]) 1955 F Date Time Provider Department 07/16/24 [facility] During your visit today, we recorded the [...] more often than normal? 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 Patient should continue with annual screenings. documented in this encounterMercy Health Tiffin Hospital10-31-2024 Telephone encounter Note * Telephone Encounter - Alex Brown APRN.CNP - 07/02/2024 9:26 AM EDT Please let patient know her mammogram is negative. Patient should continue with annual screenings. [facility]10-30-2024 History of Present illness Narrative* Destini [...] PATIENT PRESENTS WITH AN IMPLANTABLE OR ATTACHED BLANKET WEAVER: No RADIOLOGY DEPARTMENT: Mammography PERIPHERAL IV DATA: Not applicable SIGNED BY: Destini Chavarria [employer] Uriah July 01, 2024 11:20 AM documented in this encounterMercy Health Tiffin Hospital10-17-2024 History of Present illness Narrative* Christine Parker RN - 06/18/2024 9:36 AM EDT [facility] Telephonic Outreach Provider Action/FYI 2nd attempt Contacted for: Routine Telephonic Outreach Contact made with patient: No, left message. Chritsine Parker RN June 18, 2024 9:51 AM documented in this encounterMercy Health Tiffin Hospital10-16-2024 History of Present illness Narrative* Christine Parker RN - 06/17/2024 2:12 PM EDT [facility] Telephonic Outreach Provider Action/FYI 1st attempt Contacted for: Routine Telephonic Outreach Contact made with patient: No, left message. Christine Parker RN June 17, 2024 2:18 PM documented in this encounterMercy Health Tiffin Hospital10-09-2024 Telephone encounter Note * Telephone Encounter - Neyda Mccartney MA - 06/10/2024 9:47 AM EDT Patient notified. Neyda Mccartney MA\ [facility]10-09-2024 Miscellaneous Notes* Telephone Encounter - Neyda [...] medication. Please advise patient. documented in this encounterMercy Health Tiffin Hospital10-09-2024 Telephone encounter Note * Telephone Encounter - Shanna Newton APRN.LUIS FELIPE - 06/10/2024 9:37 AM EDT Let patient know that I called in a cough syrup for her. I apologize that it was not called in yesterday. [facility]10-09-2024 Telephone encounter Note* Telephone Encounter - [...] and takes BP medication. Please advise patient. [facility]10-06-2024 History of Present illness Narrative* Shanna Newton APRN.MERCHANDISE EXAMINER - 06/07/2024 11:20 AM EDT CC: Patient [...] Shanna Newton APRN.LUIS FELIPE documented in this encounterMercy Health Tiffin Hospital10-04-2024 Telephone encounter Note * Telephone Encounter - Angelina Paul LPN - 06/05/2024 1:12 PM EDT Pt Is currently with her PCP for urine issue. Angelina Paul LPN [facility]10-04-2024 Miscellaneous Notes* Telephone Encounter - Angelina [...] OV on Saturday. Please advise patient at [phone]. Thank you. documented in this encounterMercy Health Tiffin Hospital10-04-2024 History of Present illness Narrative* Rito [...] Elevated blood sugar 01/27/2021 Emphysema of lung ([facility]) 03/18/2015 Essential hypertension, benign 02/21/2015 Ex-smoker 01/27/2021 [...] improving. Rito Camp MD documented in this encounterMercy Health Tiffin Hospital10-04-2024 Telephone encounter Note * Telephone Encounter - Shanna Newton APRN.CNP - 06/05/2024 11:59 AM EDT Call patient let her know that she only had 10-50,000 of mixed microbiota. This is not a significant bacteria for urine culture. Patient should either follow-up with primary care or be retested for another urine. [facility] Work Phone: [phone] Telephone encounter Note* Telephone Encounter - Joana Au RN - 06/05/2024 11:48 AM EDT Patient requesting [facility] to advise on her recent urine culture results, when able. Reports her urinary sx's remain the same as OV on Saturday. Please advise patient at [phone]. Thank you. [facility]10-02-2024 History of Present illness Narrative* Mary Ann Dukes APRN.CNP - 06/03/2024 10:17 AM EDT This note was created using [email or web address]. Subjective Diony Ramirez is a 69 year [...] history is provided by the patient. No nursing unit clerk was used. UTI This is a new [...] mass 09/07/2011 Lung nodules 05/30/[address] Slueman Gustafson Medicare annual wellness visit, subsequent 01/27/2021 [...] with plan Tyra Henry Student TEACHING PROVIDER (Physician/PA/MARKETER) NOTE OF PERSONAL INVOLVEMENT IN CARE: I have personally seen and examined the patient and performed the medical decision-making components. I have reviewed the Advanced Practice Registered Nurse (MARKETER) Student's documentation and verified the findings in the note as written. Any additions or changes are noted in bold/italics. Signature: Mary Ann Dukes Date: 06/03/2024 Time: 11:06 AM documented in this encounterMercy Health Tiffin Hospital09-05-2024 History of Present illness Narrative* Christine [...] more often than normal? 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 Christine Parker RN May 06, 2024 11:50 AM documented in this encounterMercy Health Tiffin Hospital08-28-2024 Telephone encounter Note * Telephone Encounter - Fannie Centeno LPN - 04/29/2024 11:17 AM EDT Spoke with pt and information listed below given. Pt verbalizes understanding. Fannie Centeno LPN [facility]08-28-2024 Miscellaneous Notes* Telephone Encounter - Fannie Centeno LPN - 04/29/2024 11:17 AM EDT Spoke with pt and information listed below given. Pt verbalizes understanding. Fannie Centeno LPN * Telephone Encounter - Aury Newton MA - 04/27/2024 1:39 PM EDT Left message for patient to contact office. Aury Newton MA * Telephone Encounter - Alex Brown APRN.MERCHANDISE EXAMINER - 04/27/2024 1:22 PM EDT Please let [...] is negative for fracture. documented in this encounterMercy Health Tiffin Hospital08-26-2024 Telephone encounter Note * Telephone Encounter [...] Newton MA April 27, 2024 2:13 PM [facility]08-26-2024 Miscellaneous Notes* Telephone Encounter - Aury [...] 27, 2024 2:05 PM documented in this encounterMercy Health Tiffin Hospital08-26-2024 Telephone encounter Note * Telephone Encounter [...] Angella Kirkland April 27, 2024 2:05 PM [facility] Work Phone: [phone] Telephone encounter Note* Telephone Encounter - Aury Newton MA - 04/27/2024 1:39 PM EDT Left message for patient to contact office. Aury Newton MA [facility]08-26-2024 Telephone encounter Note* Telephone Encounter - Alex Brown APRN.CNP - 04/27/2024 1:22 PM EDT Please let patient know her MRI does not show any rotator cuff injury but does show tendinosis. I have ordered pT. [facility]08-23-[facility] History of Present illness Narrative* Angella Bell [...] PATIENT PRESENTS WITH AN IMPLANTABLE OR ATTACHED BLANKET WEAVER: No RADIOLOGY DEPARTMENT: MR; Exam(s) Completed: Upper MSK: Shoulder, left PERIPHERAL IV DATA: Not applicable SIGNED BY: ZARI Batista April 24, 2024 9:39 AM documented in this encounterMercy Health Tiffin Hospital08-19-2024 Telephone encounter Note * Telephone Encounter - [...] agreeable to call back if condition worsens. [facility]08-19-2024 Miscellaneous Notes* Telephone Encounter - Good [...] back if condition worsens. documented in this encounterMercy Health Tiffin Hospital08-13-2024 Telephone encounter Note * Telephone Encounter - Cami Kidd MA - 04/14/2024 11:37 AM EDT Pt notified and verbalized understanding Cami Kidd MA [facility]08-13-2024 Telephone encounter Note* Telephone Encounter - Alex Brown APRN.CNP - 04/14/2024 11:24 AM EDT Please let patient know their xray is negative for fracture. [facility]08-13-[facility] History of Present illness Narrative* Myriam Bates [...] PATIENT PRESENTS WITH AN IMPLANTABLE OR ATTACHED BLANKET WEAVER: No RADIOLOGY DEPARTMENT: General X-ray: Exam(s) Completed: Chest X-Ray PERIPHERAL IV DATA: Not applicable SIGNED BY: RT Liz(R) April 14, 2024 10:38 AM documented in this encounterMercy Health Tiffin Hospital08-13-2024 Instructions* Patient Instructions* Alex Brown APRN.CNP - 04/14/2024 10:01 AM EDT Take 600 mg Ibuprofen every 8 hours as needed and Tylenol 1000 mg every 8 hours as needed, alternating every 4 hours. Continue to ice area 20 minutes on every hour as needed. documented in this encounterMercy Health Tiffin Hospital08-13-2024 History of Present illness Narrative* Alex Brown [...] - XR CHEST 2V FRONTAL/LA Alex Brown APRN.MERCHANDISE EXAMINER documented in this encounterMercy Health Tiffin Hospital08-06-2024 History of Present illness Narrative* Christine [...] more often than normal? 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 Christine Parker RN April 06, 2024 3:28 PM documented in this encounterMercy Health Tiffin Hospital07-25-2024 History of Present illness Narrative* Alex [...] PROCEDURE) - CONSULT TO ORTHOPAEDICS Alex Brown APRN.MERCHANDISE EXAMINER documented in this encounterMercy Health Tiffin Hospital07-17-2024 History of Present illness Narrative* Myriam Bates [...] PATIENT PRESENTS WITH AN IMPLANTABLE OR ATTACHED BLANKET WEAVER: No RADIOLOGY DEPARTMENT: General X-ray: Exam(s) Completed: Upper Extremity X- Ray(s): Shoulder, AP / TRUE AP / AXILLARY left and Clavicle, left PERIPHERAL IV DATA: Not applicable SIGNED BY: RT Liz(R) March 18, 2024 10:58 AM documented in this encounterMercy Health Tiffin Hospital07-17-2024 History of Present illness Narrative* RyanlogSweetie garcia APRN.MERCHANDISE EXAMINER - 03/18/2024 10:43 AM EDT 03/18/2024 Patient [...] Elevated blood sugar 01/27/2021 Emphysema of lung ([facility]) 03/18/2015 Essential hypertension, benign 02/21/2015 Ex-smoker 01/27/2021 [...] OR MORE AP/TRUE AP/OTHER LEFT Sweetie Romeo APRN.MERCHANDISE EXAMINER Prescription instructions reviewed with patient as applicable. [...] Level: 3 - Low documented in this encounterMercy Health Tiffin Hospital07-15-2024 Telephone encounter Note * Telephone Encounter [...] Ruth Kirkland March 16, 2024 8:23 AM [facility]07-15-2024 Miscellaneous Notes* Telephone Encounter - Ruth [...] 16, 2024 8:23 AM documented in this encounterMercy Health Tiffin [facility]07-10-2024 History of Present illness Narrative* Ashleigh Johnson MA - 03/11/2024 3:44 PM EDT POPULATION HEALTH NAVIGATION OUTREACH Action/FYI CDM PCP appt for bruising on the Left wrist Left VM; [employer] message sent Postponed 2 days Reason for [...] more often than normal? 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 Routed to: No Action Needed PALOMA Education Provided this Outreach: No Pt reports she is doing ok and she is not having any new or worsening cdm concerns at this time. She will contact the office with any needs. Christine Parker RN February 12, 2024 12:06 PM documented in this encounterMercy Health Tiff[facility]05-15-2024 History of Present illness Narrative* Christine Parker RN - 01/15/2024 9:03 AM EDT [facility] Telephonic Outreach Provider Action/FYI Contacted for: Routine [...] more often than normal? 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 Christine Parker RN January 14, 2024 12:41 PM documented in this encounterMercy Health T[facility] Hospital05-02-2024 History of Present illness Narrative* Kami Salas MA - 01/02/2024 10:46 AM EDT View External Imaging - CT Scan [ID [id number]] documented in this encounterMercy Health Tiffin Hospital05-01-2024 Telephone encounter Note * Telephone Encounter - Kasey Becker LPN - 01/01/2024 9:13 AM EDT Patient returned call and went over results, notes from Dr Camp with understanding. [facility]05-01-2024 Miscellaneous Notes* Telephone Encounter - Kasey [...] of heart was ok documented in this encounterMercy Health Tiffin Hospital05-01-2024 Telephone encounter Note * Telephone Encounter - Aury Newton MA - 01/01/2024 8:23 AM EDT Left message for patient to contact office. Aury Newton MA [facility]04-30-2024 Telephone encounter Note* Telephone Encounter - Rito Camp MD - 12/31/2023 8:50 PM EDT Let patient know US of heart was ok [facility]04-22-2024 Telephone encounter Note* Telephone Encounter - Good Silva RN - 12/23/2023 2:48 PM EDT Patient phoned looking for CXR results. States she is not good at her MC. Given provider's message below with verbalized understanding. [facility]04-22-2024 Miscellaneous Notes* Telephone Encounter - Good Silva RN - 12/23/2023 2:48 PM EDT Patient phoned looking for CXR results. States she is not good at her MC. Given provider's message below with verbalized understanding. documented in this encounterMercy Health Tiffin Hospital04-22-2024 History of Present illness Narrative* Fina [...] PATIENT PRESENTS WITH AN IMPLANTABLE OR ATTACHED BLANKET WEAVER: No RADIOLOGY DEPARTMENT: General X-ray: Exam(s) Completed: Chest X-Ray PERIPHERAL IV DATA: Not applicable SIGNED BY: RT Vega(R) December 23, 2023 10:49 AM documented in this encounterMercy Health Tiffin Hospital04-22-2024 History of Present illness Narrative* Mary [...] history is provided by the patient. No nursing unit clerk was used. Cough This is a new [...] Elevated blood sugar 01/27/2021 Emphysema of lung ([facility]) 03/18/2015 Essential hypertension, benign 02/21/2015 Ex-smoker 01/27/2021 [...] with PCP for same Mary Ann Dukes APRN.MERCHANDISE EXAMINER documented [place] encounterBrandon [place] [address]-21-2024 History of Present illness Narrative* Teresa Handley PA-C - 12/22/2023 10:44 AM EDT This note was created using [email or web address]. Subjective Diony Ramirez is a 68 year [...] Elevated blood sugar 01/27/2021 Emphysema of lung ([facility]) 03/18/2015 Essential hypertension, benign 02/21/2015 Ex-smoker 01/27/2021 [...] agreeable.. Teresa Handley PA-C documented in this encounterMercy Health T[facility] Hospital04-16-2024 History of Present illness Narrative* Christine Parker RN - 12/17/2023 12:11 PM EDT [facility] Telephonic Outreach Provider Action/FYI 2nd attempt Contacted for: Routine Telephonic Outreach Contact made with patient: No, left message. Christine Parker RN December 17, 2023 12:12 PM documented in this encounterMercy Health T[facility] Hospital04-15-2024 History of Present illness Narrative* Christine Parker RN - 12/16/2023 3:04 PM EDT CD[facility] Telephonic Outreach Provider Action/FYI 1st attempt Contacted for: Routine Telephonic Outreach Contact made with patient: No, left message. Christine Parker RN December 16, 2023 3:04 PM documented in this encounterMercy Health T[facility] Hospital03-18-2024 History of Present illness Narrative* Christine [...] more often than normal? 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 Routed to: No Action Needed PALOMA Education Provided this Outreach: No Pt reports she is doing fine and she is not having any new or worsening cdm concerns at this time. She will contact the office with any needs. Christine Parker RN November 18, 2023 3:29 PM documented in this encounterMercy Health T[facility] Hospital03-08-2024 Miscellaneous Notes* Telephone Encounter - Rito [...] testing. [place] Gill RN documented in this encounterMercy Health Tiffin Hospital02-20-2024 History of Present illness Narrative* Christine Parker RN - 10/22/2023 9:42 AM EST [facility] Teleph[facility] Out[facility] Provider Action/FYI 2nd attempt Contacted for: Routine Telephonic Outreach Contact made with patient: No, left message. Christine Parker RN October 22, 2023 9:42 AM documented in this encounterMercy Health T[facility] Hospital02-19-2024 History of Present illness Narrative* Christine Parker RN - 10/21/2023 2:58 PM EST [facility] Telephonic Outreach Provider Action/FYI 1st attempt Contacted for: Routine Telephonic Outreach Contact made with patient: No, left message. Christine Parker RN October 21, 2023 2:58 PM documented in this encounterMercy Health [facility]02-14-2024 Miscellaneous Notes* Telephone Encounter - Melita [...] now. Shanita Green PA-C documented in this encounterMercy Health [facility]02-13-2024 Miscellaneous Notes* Telephone Encounter - Elana Waller PSS - 10/15/2023 3:52 PM EST CD READY FOR ACTUARIAL INTERNSHIP AT [facility] for pt * Telephone Encounter - Ramona Lundy - 10/15/2023 11:42 AM EST Patient is requesting copy of x-ray report and disc from 10/15/23. Please notify patient when ready for picker tender helper. Instructed to retrieve items at [place]. documented in this encounterMercy Health Tiffin Hospital02-13-2024 History of Present illness Narrative* James [...] PATIENT PRESENTS WITH AN IMPLANTABLE OR ATTACHED BLANKET WEAVER: No RADIOLOGY DEPARTMENT: General X-ray: Exam(s) Completed: Spine X-Ray(s): Cervical AP / LAT / OBL Upper Extremity X-Ray(s): Shoulder, AP / TRUE AP right Scapular Y view PERIPHERAL IV DATA: Not applicable SIGNED BY: RT Berry(R) October 15, 2023 9:36 AM documented in this encounterMercy Health Tiff[facility] Hospital02-13-2024 History of Present illness Narrative* Shanita [...] TABLET Shanita Green PA-C documented in this encounterMercy Health Tiffin Hospital02-05-2024 Miscellaneous Notes* Telephone Encounter - Troy Cindy Kirkland 10/07/2023 12:10 PM EST Patient [...] INSTRUCTIONS: Patient is changing back to [facility]. Please send today. She requested 90 days with refills. Patient aware RX will be sent to pharmacy. No need to notify patient. Cindy Santizo [facility] documented in this encounterMercy Health T[facility]in Hospital12-21-2023 History of Present illness Narrative* Christine [...] more often than normal? 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, the following disposition is advised: No symptoms [...] 22, 2023 10:39 AM documented in this encounterMercy Health T[facility] Hospital12-14-2023 History of Present illness Narrative* Myriam Bates [...] 15, 2023 12:10 PM documented in this encounterMercy Health T[facility] Hospital12-05-2023 History of Present illness Narrative* Evelio Jeancarlos, [...] 1112 Jeancarlos Fraser PT documented in this encounterMercy Health T[facility] Hospital11-30-2023 History of Present illness Narrative* Jeancarlos Fraser [...] Fraser PT - 07/29/2023 11:19 AM EST Program_ID:[id number] Access Code: [email or web address] URL: [email or web address]://[facility] hospitalBlue Diamond Technologies/ Date: 07-29-2023 Prepared By: Jeancarlos Fraser Program [...] Fraser PT - 07/29/2023 11:18 AM EST Program_ID:[id number] Access Code: [email or web address] URL: https://[facility]anc[facility] mercy hospitalAmerican Prison Data [employer]/ Date: 07-29-2023 Prepared By: Jeancarlos Fraser Program [...] Education - Lumbar Stenosis documented in this encounterMercy Health [facility]11-20-2023 History of Present illness Narrative* Kerrie [...] 22, 2023 11:45 AM documented in this encounterMercy Health Tiffin Hospital11-13-2023 History of Present illness Narrative* Jeancarlos [...] Planned: 8 Planned Treatment Interventions: Therapeutic exercise (87719), Neuromuscular re- education (20114), Manual therapy (23428), Therapeutic activities (40953), Self- skilled nursing management (29746), Patient/Family/Caregiver Education, Body Mechanics Training PLAN FOR [...] *Hooklying piriformis stretch 3x30 sec/side 4: Issued [employer] handout on spine stenosis Skilled Intervention: Patient [...] : 947 Jeancarlos Evelio, PT * Jeancarlos Fraser PT - 07/15/2023 9:46 AM EST Program_ID:[id number] Access Code: [email or web address] URL: [email or web address] hospitalAmerican Prison Data Systems/ Date: 07-15-2023 Prepared By: Jeancarlos Fraser Program [...] Fraser PT - 07/15/2023 9:45 AM EST Program_ID:[id number] Access Code: [email or web address] URL: [email or web address] Date: 07-15-2023 Prepared By: Jeancarlos Fraser Program [...] - 3 - 3 documented in this encounterMercy Health [facility]10-26-2023 Miscellaneous Notes* Telephone Encounter - Rito [...] 06/27/2023 2:41 PM EDT Pharmacy verified in [facility] Patient has been identified by name and [...] Please advise. Angella Kirkland documented in this encounterMercy Health [facility] Hospital10-20-2023 History of Present illness Narrative* Kerrie [...] more often than normal? 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 Routed to: No Action Needed PALOMA Education Provided this Outreach: No Kerrie Damian RN June 21, 2023 12:29 PM documented in this encounterMercy Health [facility] Hospital10-20-2023 Miscellaneous Notes* Telephone Encounter - Melita Le LPN - 06/21/2023 9:31 AM EDT Pt notified of same. Melita Le LPN * Telephone Encounter - Alex Brown APRN.CNP - 06/20/2023 5:16 PM EDT Please let patient know her WBC count has returned to normal. documented in this encounterMercy Health T[facility] Hospital10-19-2023 Miscellaneous Notes* Telephone Encounter - Marli Zhang RN - 06/20/2023 3:44 PM EDT Pt called and is notified of providers results. Pt voices understanding. Marli Zhang RN * Telephone Encounter - Rito Camp MD - 06/20/2023 3:35 PM EDT Let patient know the repeat CBC was ok. documented in this encounterMercy Health T[facility]in Hospital10-12-2023 History of Present illness Narrative* Toi Falcon MD - 06/13/2023 12:30 PM EDT HISTORY AND PHYSICAL Diony Alcantar Ashley 1955 REFERRING PHYSICIAN: Alex Brown APRN.* CHIEF COMPLAINT: Consult (S/p small bowel obstruction) HPI: The patient is a 68 year old female with a complaint of resolution of partial small bowel obstruction. Patient was admitted to [facility] on 05/31/2023. She has been having [...] entered by the nurse and reviewed by al Nursing Notes: Bree Emmanuel LPN 06/11/2023 9:30 [...] Toi Falcon III, MD documented in this encounterMercy Health [facility]10-10-2023 Miscellaneous Notes* Telephone Encounter - [place] [...] axilla? Shanita Green PA-C documented in this encounterMercy Health T[facility]in Hospital10-10-2023 Nurse Note* Bree Emmanuel LPN - [...] 2015 Bree Emmanuel LPN documented in this encounterMercy Health [facility]10-07-2023 History of Present illness Narrative* Rito [...] of lumbar spine 05/06/2014 Ectatic thoracic aorta ([facility]) 12/04/2022 CT done 12/2022 Elevated blood sugar 01/27/2021 Emphysema of lung ([facility]) 03/18/2015 Essential hypertension, benign 02/21/2015 Ex-smoker 01/27/2021 [...] improving Rito Camp MD documented in this encounterMercy Health [facility]10-05-2023 Miscellaneous Notes* Telephone Encounter - Kami [...] advise, [place] Gill RN documented in this encounterMercy Health [facility]10-03-2023 History of Present illness Narrative* Alex Brown APRN.CNP - 06/04/2023 10:58 AM EDT Chief Complaint Patient presents with: Hospital F/U HPI Diony Ramirez is a 68 year old female who presents here today for Above Complaints.. Patient presents for hospital follow up. Patient was hospitalized with small bowel obstruction at [facility]. Patient was seen by surgery while [...] of lumbar spine 05/06/2014 Ectatic thoracic aorta ([facility]) 12/04/2022 CT done 12/2022 Elevated blood sugar 01/27/2021 Emphysema of lung ([facility]) 03/18/2015 Essential hypertension, benign 02/21/2015 Ex-smoker 01/27/2021 [...] - CONSULT TO GENERAL SURGERY Alex Brown APRN.MERCHANDISE EXAMINER documented in this encounterMercy Health [facility]10-02-2023 Miscellaneous Notes* Telephone Encounter - Albania Gill RN - 06/03/2023 11:20 AM EDT TRANSITION CARE MANAGEMENT (TCM) INITIAL CONTACT Pneumatic System Conveyor Operator Outreach Provider Action/FYI: Patient calls and wanted provider to know that she was admitted to [facility] on Saturday night with small bowel [...] flowsheet data found. SUMMARY: -Pt discharged from [facility] on 06/02/2023. -Admitted for: Small Bowel [...] recent hospitalization: Care Everywhere documented in this encounterMercy Health [facility]10-01-2023 Progress note Author Jazz Collins [facility] June 02, 2023 10:33am Note Date/Time June 02, 2023 8: 58am [facility] Medical Records Department [address] [place] [address] Progress Note - Surgery 06/02/23 0857 MR#: [id number] Acct: [id number] Name: JENA RAMIREZ Rep #:[id number] : 1955 68 From: Jazz Collins MD PCP: Dr. Rito Camp MD Status:ADM IN [id number] Subjective Subjective + flatus, denies abd pain, [...] 06/01/23 11:54 AG (Rec: 06/01/23 11:54 AG [id number]) Nutrition Malnutrition Evidence of Malnutrition Exists Yes [...] 74.5 H, Lymph % (Auto) 12.6 L, Raleigh % (Auto) 10.5 H, Eos % (Auto) [...] 7:57 EDT Reading Location ID and State: [address] [place] [address] Tel , Service support , Physical Exam [...] agreeable w plan. Jazz Collins M.D. Pager: [phone] [facility] [address] [place] [address], [facility], [address] [place] [address] Office: [phone] Charges/Coding Visit Charges Inpatient E&M: 36507 Subs Hosp L2 06/02/23 1033 <Electronically signed by Jazz Collins MD> Cosigner Signature (if applicable): CC: ~ Signed [facility] Work Phone: 1(159) 190-278710-01-2023 Progress note Author Mick Pelletier [facility] June 02, 2023 9:03am Note Date/Time June 02, 2023 9: 03am [facility] Medical Records Department [address] [place] [address] Progress Note - Hospitalist 06/02/23 0859 MR#: [id number] Acct: [id number] Name: JENA RAMIREZ Rep #:[id number] : 1955 68 From: Mick puckett MD PCP: Dr. Rito Camp MD Status:ADM IN Location: [facility] [id number] Subjective Subjective Still some abdominal pain, still [...] Document 06/01/23 11:54 AG (Rec: 06/01/23 11:54 [id number]) Nutrition Malnutrition Evidence of Malnutrition Exists Yes [...] 74.5 H, Lymph % (Auto) 12.6 L, Raleigh % (Auto) 10.5 H, Eos % (Auto) [...] DVT: SCDs Charges/Coding Visit Charges Inpatient E&M: 95373 Subs Hosp L2 06/02/23 0903 <Electronically signed by Mick Pelletier MD> Cosigner Signature (if applicable): CC: ~ Signed [facility] Work Phone: 1(618) 122-202009-30-2023 Consult note Author Jazz Collins [facility] June 01, 2023 8:39am Note Date/Time June 01, 2023 7:50am [facility] Medical Records Department [address] [place] [address] Consultation - Surgical 06/01/23 0750 MR#: [id number] Acct: [id number] Name: JENA RAMIREZ Rep #:[id number] : 1955 68 From: Jazz Collins MD PCP: Dr. Rito Camp MD Status:ADM IN Location: [place] [address] Assessment & Plan Assessment/Plan (1) SBO (small [...] quickly last time. Jazz Collins M.D. Pager: [phone] [facility] [address] [place] [address], [facility], [address] [place] [address] Office: [phone] HPI Consult Data Date of Consult: 06/01/23 [...] cell count admit was 13.8 currentlyis 11.7. [facility] Medical History Alcohol abuse Anxiety associated [...] 76.5 H, Lymph % (Auto) 13.7 L, Raleigh % (Auto) 7.4, Eos % (Auto) 1.4, [...] Clarity Clear, Urine pH 7.0, Ur Specific Watkins 1.010, Urine Protein Negative, Urine Glucose (UA) [...] (Auto) 84.7 H, Lymph % (Auto)8.4 L, Raleigh % (Auto) 5.7, Eos % (Auto) 0.3, [...] EDT , Charges/Coding Visit Charges Inpatient E&M: 32439 Init Hosp L3 06/01/23 0839 <Electronically signed by Jazz Collins MD> Cosigner Signature (if applicable): CC: Dr. Rito Camp MD; Dr. Boby Jordan MD; Dr. Jazz Collins MD~ Signed [facility] Work Phone: 1(520) 230-746609-30-2023 History and physical note Author Boby Jordan [facility] June 01, 2023 5:38am Note Date/Time June 01, 2023 12:53am [facility] Medical Records Department [address] [place] [address] H&P Exam - Hospitalist 06/01/23 0052 MR#: [id number] Acct: [id number] Name: JENA RAMIREZ Rep #:[id number] : 1955 68 From: Boby Jordan MD PCP: Dr. Rito Camp MD Status:ADM IN Location: [facility] [id number] HPI - General General Date of Admission: [...] ago when an NG tube was placed. [facility] Medical History Alcohol abuse Anxiety associated [...] 76.5 H, Lymph % (Auto) 13.7 L, Raleigh % (Auto) 7.4, Eos % (Auto) 1.4, [...] Clarity Clear, Urine pH 7.0, Ur Specific Watkins 1.010, Urine Protein Negative, Urine Glucose (UA) [...] documentation, 30minutes. Charges/Coding Visit Charges Inpatient E&M: 68271 Init Hosp L2 06/01/23 0538 <Electronically signed by Boby Jordan MD> Cosigner Signature (if applicable): CC: Dr. Rito Camp MD; Dr. Boby Jordan MD~ Signed [facility] Work Phone: 1(850) 740-987909-30-2023 Discharge summary Author Tyler Green [facility] June 01, 2023 12:41am Note Date/Time May 31, 2023 10:05pm [facility] Medical Records Department [address] [place] [address] Emergency Department Summary 05/31/23 MR#: [id number] Acct: [id number] Name: JENA RAMIREZ Rep #:[id number] : [...] mg/mL subcutaneous syringe (denosumab) 60 mg subcut [id number] #1 mL 02/25/23 [Rx Last Taken Unknown] [...] surgery, hospitalist This note was generated with NaviExpertation software. It may contain incorrectwords, spelling, and [...] 76.5 H Lymph % (Auto) 13.7 L Raleigh % (Auto) 7.4 Eos % (Auto) 1.4 [...] Clarity Clear Urine pH 7.0 Ur Specific Watkins 1.010 Urine Protein Negative Urine Glucose (UA) [...] Prolia 60 mg/mL syringe 60 mg subcut [id number] Qty: 1 1RF trazodone 100 MG tablet [...] Provider] - Disposition Disposition: Acute Care Hospital [facility] What to do if you have Problems For any increased pain, shortness of breath, bleeding, nausea or vomiting, chestpain, or any unexpected problems, contact your Primary Care Provider. Call [facility] ([phone]) or report to the closest Emergency Room. Call 911 if necessary. 06/01/23 0041 <Electronically signed by Tyler Faria> Cosigner Signature (if applicable): CC: Dr. Rito Camp MD ~ Signed [facility] Work Phone: [phone]) 796-258109-30-2023 Discharge summary Author Tyler Green [facility] June 01, 2023 12:41am Note Date/Time May 31, 2023 10:05pm [facility] Medical Records Department [address] [place] [address] Emergency Department Summary 05/31/23 MR#: [id number] Acct: [id number] Name: JENA RAMIREZ Rep #:[id number] : [...] mg/mL subcutaneous syringe (denosumab) 60 mg subcut [id number] #1 mL 02/25/23 [Rx Last Taken Unknown] [...] surgery, hospitalist This note was generated with Viz[employer] Technology dictation software. It may contain incorrectwords, [...] 76.5 H Lymph % (Auto) 13.7 L Raleigh % (Auto) 7.4 Eos % (Auto) 1.4 [...] Clarity Clear Urine pH 7.0 Ur Specific Watkins 1.010 Urine Protein Negative Urine Glucose (UA) [...] Prolia 60 mg/mL syringe 60 mg subcut [id number] Qty: 1 1RF trazodone 100 MG tablet [...] MD [Primary Care Provider] - Disposition Disposition: [facility] Care [facility] What to do if you have Problems For any increased pain, shortness of breath, bleeding, nausea or vomiting, chestpain, or any unexpected problems, contact your Primary Care Provider. Call [facility] ([phone]) or report to the closest Emergency Room. Call 911 if necessary. 06/01/23 0041 <Electronically signed by Tyler Faria> Cosigner Signature (if applicable): CC: Dr. Rito Camp MD ~ Signed [facility] Work Phone: [phone]) 788-752109-13-2023 Miscellaneous Notes* Telephone Encounter - Maliha Fregoso [...] today) Melita Le LPN documented in this encounterMercy Health [facility]08-15-2023 Miscellaneous Notes* Telephone Encounter - Meilta Le LPN - 04/16/2023 10:45 AM EDT [...] notify patient. Hallie Paul documented in this encounterMercy Health Tiff[facility] Hospital08-09-2023 Miscellaneous Notes* Telephone Encounter - Elana Waller PSS - 04/10/2023 11:49 AM EDT CD/REPORT IS READY FOR ACTUARIAL INTERNSHIP AT [facility] * Telephone Encounter - Harshal Kirkland Joana - 04/10/2023 8:51 AM EDT Patient is requesting Ct Chest from December copied to a disk for picker tender helper with a copy of the report for picker tender helper tomorrow. documented in this encounterMercy Health Tiffin Hospital07-06-2023 Miscellaneous Notes* Telephone Encounter - Rito [...] 1 * Telephone Encounter - Liz Mackenzie [facility] - 03/07/2023 1:06 PM EDT Diony Ramirez is calling Rito Camp MD today to request a medication that does not appearon current medication list . Trazadone 150 mg takes 1 once daily at bedtime Please send to [facility] for 90 days with refills Patient has been identified by name and birthdate. Duration of symptoms: N/A Person calling: self Call patient at: on cell [phone] (cell) Was an appointment scheduled: No Closing statement: Results or non-symptom based questions: Thank you for calling [facility], your call will be returned within the next business day. Liz Mackenzie [facility] documented in this encounterMercy Health Tiffin Hospital06-30-2023 Miscellaneous Notes* Telephone Encounter - CHETAN [...] to please advise patient. documented in this encounterMercy Health Tiffin [facility]06-29-2023 History of Present illness Narrative* Kerrie [...] more often than normal? 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 Routed to: No Action Needed PALOMA Education Provided this Outreach: No Kerrie Damian RN February 28, 2023 4:07 PM documented in this encounterMercy Health Tiffin Hospital06-29-2023 History of Present illness Narrative* Kerrie Damian RN - 02/28/2023 3:55 PM EDT Opened in error documented in this encounterMercy Health Tiffin Hospital06-28-2023 Miscellaneous Notes* Telephone Encounter - Albania Gill RN - 02/27/2023 12:45 PM EDT Patient notified of results and provider's instructions. Patient verbalizes understanding. Albania Gill RN * Telephone Encounter - Shanita Green PA-C - 02/27/2023 12:18 PM EDT Let patient know that her platelet count has improved. Iron levels are normal. Recheck cbc in 1 month. Shanita Green PA-C documented in this encounterMercy Health Tiffin Hospital06-27-2023 History of Present illness Narrative* Meltia Le LPN - 02/26/2023 2:59 PM EDT Scan on 02/25/2023 10:17 AM by External Provider, MU: Consultation - Endocrinology documented in this encounterMercy Health Tiffin Hospital06-27-2023 Miscellaneous Notes* Telephone Encounter - Cami Kidd Cma - 02/26/2023 1:58 PM EDT Patient notified and verbalized understanding Cami Kidd Cma * Telephone Encounter - Alex Brown APRN.CNP - 02/26/2023 12:54 PM EDT Please let patient know her CT is normal. documented in this encounterMercy Health Tiffin Hospital06-27-2023 History of Present illness Narrative* Charleen [...] 2023 TIME: 12:35 PM documented in this encounterMercy Health Tiffin Hospital06-22-2023 Miscellaneous Notes* Telephone Encounter - Maliha [...] counts. Shanita Green PA-C documented in this encounterMercy Health Tiffin Hospital06-21-2023 Instructions* Patient Instructions* Shanita Green PA-C - 02/20/2023 8:42 AM EDT Taper off of the trazodone to see how you do with hydroxyzine on it's own for sleep. Take 1/2 tablet of trazodone x 1 week and then stop. documented in this encounterMercy Health Tiffin Hospital06-21-2023 History of Present illness Narrative* Shanita Green PA-C - 02/20/2023 8:29 AM EDT Chief Complaint Patient presents with: Recheck: Blood pressure HPI Diony Ramirez is a 67 year old female who presents here today for multiple concerns. Patient reports headaches for the past week. Was having sinus issues too but those improved. [place] like BP at home as been elevated [...] results Shanita Green PA-C documented in this encounterMercy Health Tiffin Hospital06-16-2023 Instructions* Patient Instructions* Alex Brown APRN.CNP - 02/15/2023 9:53 AM EDT Start hydroxyzine, cetirizine, fluticasone Schedule with allergy documented in this encounterMercy Health Tiffin Hospital06-16-2023 History of Present illness Narrative* Alex [...] - IV CONTRAST (RADIOLOGY PROCEDURE) Alex Brown APRN.MERCHANDISE EXAMINER documented in this encounterMercy Health Tiffin Hospital05-08-2023 History of Present illness Narrative* Ruth Denton RN - 01/07/2023 1:21 PM EDT [facility] Telephonic Outreach Provider Action/FYI Made call #2. NA/Left vm. Left H@H reminder. Contacted for: Routine Telephonic Outreach Contact made with patient: No, left message. Ruth Denton RN January 07, 2023 1:23 PM * Ruth Denton RN - 01/03/2023 1:19 PM EDT [facility] Telephonic Outreach Provider Action/FYI Made call #1. NA/left vm. Contacted for: Routine Telephonic Outreach Contact made with patient: No, left message. Ruth Denton RN January 07, 2023 1:21 PM documented in this encounterMercy Health Tiffin Hospital05-01-2023 Miscellaneous Notes* Telephone Encounter - Elizabeth [...] review. Elizabeth Eckert LPN documented in this encounterMercy Health Tiffin Hospital04-18-2023 History of Present illness Narrative* Myriam Bates, [...] 18, 2022 9:49 AM documented in this encounterMercy Health Tiffin Hospital04-07-2023 History of Present illness Narrative* Ruth [...] to speak with a social work steam heating installer to help give you support for any [...] you up for automated weekly questionnaires through Vine. This is an easy way for us [...] PtOutreach and End outreach. documented in this encounterMercy Health Tiffin Hospital04-05-2023 Miscellaneous Notes* Telephone Encounter - Marli [...] CT of her abd/pelvis. documented in this encounterMercy Health Tiffin Hospital04-05-2023 Miscellaneous Notes* Telephone Encounter - Angella Santiago Pss - 12/05/2022 11:35 AM EDT Diony is asking for 90 day scripts with 3 refills. Pended meds have been changed to reflect that request. Please review and send as appropriate. * Telephone Encounter - Angella Santiago Pss - 12/05/2022 11:34 AM EDT Pharmacy verified in [facility] Patient has been identified by name and [...] advise. Angella Santiago Pss documented in this encounterMercy Health Tiffin Hospital04-03-2023 History of Present illness Narrative* Mary [...] 03, 2022 9:40 AM documented in this encounterMercy Health Tiffin Hospital04-03-2023 History of Present illness Narrative* Charleen [...] 03, 2022 3:29 PM documented in this encounterMercy Health Tiffin Hospital03-21-2023 Miscellaneous Notes* Telephone Encounter - Mitzy Jacobson LPN - 11/20/2022 3:15 PM EDT Pt notified of results. Mitzy Jacobson LPN * Telephone Encounter - Shanita Green PA-C - 11/20/2022 2:43 PM EDT Thyroid levels are normal. Shanita Green PA-C documented in this encounterMercy Health Tiffin Hospital03-20-2023 Instructions* Patient Instructions* iRto Camp MD - 11/19/2022 10:38 AM EDT [facility] go to [facility] and ask for a copy of your Chest CT done May 2022 placed onto a disc. When you come into [facility] for your chest CT bring the disc with you and give to radiology so it can be up loaded into the system. documented in this encounterMercy Health Tiffin Hospital03-20-2023 History of Present illness Narrative* Rito [...] shortness of breath. When she was in [place] she had a cough that has bene [...] Lymph 1.00 - 4.00 k/uL 1.80 1.90 [place]% % 7.8 10.1 Abs [place] <0.87 k/uL 0.93 (H) 0.88 (H) Eosin% [...] - check CT chest without contrast at [facility] w 3. Multiple thyroid nodules - [...] which included preparing to see the patient, [id number] patient care, completing clinical documentation, performing a medically appropriate examination, counseling and educating the patient/family/caregiver and ordering medications, tests, or procedures. Rito Camp MD documented in this encounterMercy Health Tiffin Hospital03-17-2023 Miscellaneous Notes* Telephone Encounter - Rito Camp MD - 11/16/2022 12:44 PM EDT Let patient know her DXA scan shows worsening of her osteoporosis. See if willing to meet with endocrine to determine next best coarse of action. Discussed her DXA scan results at her visit on 11/19/2022. documented in this encounterMercy Health Tiffin Hospital03-14-2023 History of Present illness Narrative* Bashir [...] 13, 2022 9:26 AM documented in this encounterMercy Health Tiffin Hospital03-13-2023 History of Present illness Narrative* Ruth [...] had covid X 2. Pt was in [place] a couple weeks ago and wonders if this may be related to the RED TIDE. Offered a virtualist visit today. Pt denies need. States she has a PCP visit with MERCHANDISE EXAMINER on November 19. Advised if any escalating [...] to speak with a social work steam heating installer to help give you support for any [...] you up for automated weekly questionnaires through Vine. This is an easy way for us [...] PtOutreach and End outreach. documented in this encounterMercy Health Tiffin Hospital03-07-2023 Miscellaneous Notes* Telephone Encounter - Ainsley Del Valle Ma - 11/06/2022 9:12 AM EST Patient notified and verbalized understanding Ainsley Del Valle Ma * Telephone Encounter - Rito Camp MD - 11/05/2022 8:58 PM EST Let patient know repeat CBC was ok. 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 She watches her diet for sodium, low fat and low cholesterol some of the time. List of current specialists seen: - Dr. Suleman Gustafson (Pul) - Dr. Shore (Urology) - optho End of Live Planning discussed including patients advanced directive wishes: Yes I am willing to follow [employer]'s advanced directives. PHQ-2 / Depression screen Depression [...] Lymph 1.00 - 4.00 k/uL 2.03 1.80 [place]% % 10.1 7.8 Abs [place] <0.87 k/uL 0.75 0.93 (H) Eosin% % [...] Negative Ketones, Urine Trace, Negative Negative Specific [place], Ur 1.005 - 1.030 1.017 Hemoglobin/Blood,Ur Negative, [...] which included preparing to see the patient, [id number] patient care, completing clinical documentation, performing a medically appropriate examination, counseling and educating the patient/family/caregiver and ordering medications, tests, or procedures. Rito Camp MD documented in this encounterMercy Health Tiffin Hospital01-16-2023 History of Present illness Narrative* Kami Hunter RN - 09/17/2022 12:44 PM EST [facility]IGHT CD TELEPHONIC OUTREACH Provider Action/FYI: Patient returned call to this nurse. Patient reports she is doing good, states she is leaving for [place] 10/01 and will be back the first [...] to speak with a social work steam heating installer to help give you support for any [...] you up for automated weekly questionnaires through Vine. This is an easy way for us [...] my name is Kami Hunter RN your Warping Mill Operator [facility] I am calling today for your bi-weekly check in. I am sorry I missed your call. I will reach out to you again tomorrow. (if the third call I will reach out to you again next week) Enter next patient outreach date for the following using the Track Pt Outreach. End outreach. documented in this encounterMercy Health Tiffin Hospital01-11-2023 Miscellaneous Notes* Telephone Encounter - Aury [...] and assist. Leslye PSS documented in this encounterMercy Health Tiffin Hospital12-27-2022 Miscellaneous Notes* Telephone Encounter - Fannie [...] Thank you. Bushra Orozco documented in this encounterMercy Health Tiffin Hospital12-16-2022 Miscellaneous Notes* Telephone Encounter - Rito [...] and advise. Angella Ulrich documented in this encounterMercy Health Tiffin Hospital12-13-2022 History of Present illness Narrative* Angella [...] this appointment? N/A Reason for Outreach [facility] Payer: Payor: [employer]ET [employer] AND BLUE [employer] / Plan: [employer] HMO / Product Type: HMO / Care [...] to speak with a social work steam heating installer to help give you support for any [...] you up for automated weekly questionnaires through Vine. This is an easy way for us [...] PtOutreach and End outreach. documented in this encounterMercy Health Tiffin Hospital11-30-2022 Miscellaneous Notes* Letter - Mammography Coordinator - 08/01/2022 6:14 PM EST August 01, 2022 PID: [id number] Diony Ramirez [address] [place] [id number] Dear Ms. Ramirez, We are pleased to [...] report will [facility] as part of your permanent medical record and are available for your continuing care. Thank you for allowing us to help in meeting your health care needs. Sincerely, Dr. Ozuna Interpreting Radiologist [facility] (Normal over 40) documented in this encounterMercy Health Tiffin Hospital11-29-2022 History of Present illness Narrative* Marixa Ortiz RT(R) - 07/31/2022 9:10 AM EST Radiology Service Progress Note PATIENT NAME: Diony Ramirze DATE OF SERVICE: July 31, 2022 TIME: [...] 31, 2022 9:05 AM documented in this encounterMercy Health Tiffin Hospital11-29-2022 History of Present illness Narrative* Ashleigh Negrete APRN.LUIS FELIPE - 07/31/2022 9:06 AM EST Rehabilitation Therapist offered: Patient declines. Diony is a 67 [...] L0 SAB0 IAB0 Ectopic0 Multiple0 Live Births0 Environmental Compliance Engineer History LMP: 03/23/2007, Postmenopausal Age at Menarche: Age at First : Age at Menopause: Environmental Compliance Engineer History Comments: Sexual Activity: Yes; Male; Tubal [...] external genitalia normal, normal Bartholin's glands, urethra, [place]'s glands, no vulvar lesions, no cervical lesions, [...] Ashleigh Negrete APRN.LUIS FELIPE documented in this encounterMercy Health Tiffin Hospital11-21-2022 History of Present illness Narrative* Kami [...] to speak with a social work steam heating installer to help give you support for any [...] you up for automated weekly questionnaires through Vine. This is an easy way for us [...] PtOutreach and End outreach. documented in this encounterMercy Health Tiffin Hospital11-07-2022 Miscellaneous Notes* Telephone Encounter - Kayce Mendiola LPN - 07/09/2022 5:25 PM EST Patient notified. Kayce Mendiola LPN * Telephone Encounter - Sweetie Romeo APRN.CNP - 07/09/2022 4:24 PM EST Please call patient and let her know her chest xray does not show any acute findings. Sweetie Romeo APRN.LUIS FELIPE documented in this encounterMercy Health Tiffin Hospital11-07-2022 History of Present illness Narrative* Sweetie Romeo APRN.CNP - 07/09/2022 10:49 AM EST 07/09/2022 Patient presents with: Covid: Diagnosed 07/04/22, continuing to have difficulty breathing SUBJECTIVE: This is a 67 year old that is here today for Above Complaints. Tested positive for COVID-19 on 07/04 with symptoms starting two days prior. Placed on prednisone. She reports she talked to her dope mixer , Dr. Gustafson and he put her [...] showed normal sinus rhythm at 82 BPM, OK interval 124 ms, normal QRS, normal ST-T, [...] ER with red flag symptoms Sweetie Romeo, MARKETER.MERCHANDISE EXAMINER Prescription instructions reviewed with patient as applicable. [...] which included preparing to see the patient, [id number] patient care, completing clinical documentation, obtaining and/or reviewing separately obtained history, performing a medically appropriate examination, counseling and educating the pat ient/family/caregiver, and ordering medications, tests, or procedures. documented in this encounterMercy Health Tiffin Hospital11-07-2022 Miscellaneous Notes* Telephone Encounter - Joana Au RN - 07/09/2022 8:22 AM EST Patient calling and states she was seen in [facility] on 07/04/22 for suspected COVID. Patient wastested [...] Romeo for 10:40am. Please call patient at [phone] if provider has other instructions. Will send this message to Shanita Green and Sweetie Romeo for review. Thank you. documented in this encounterMercy Health Tiffin Hospital11-03-2022 Miscellaneous Notes* Telephone Encounter - Alice [...] was negative for flu. documented in this encounterMercy Health Tiffin Hospital11-02-2022 Instructions* Patient Instructions* Rito Sheridan APRN.LUIS [...] or concerning to you. documented in this encounterMercy Health Tiffin Hospital11-02-2022 History of Present illness Narrative* Rito [...] of care. This note was generated using [employer] software. It may contain errors in wording, punctuation, or spelling. Rito Sheridan APRN.LUIS FELIPE documented in this encounterMercy Health Tiffin Hospital10-31-2022 History of Present illness Narrative* Kami Hunter RN - 07/02/2022 1:33 PM EDT [facility] TELEPHONIC OUTREACH Provider Action/FYI: Contact made with patient: No - Left message Radha my name is Kami Hunter RN your Warping Mill Operator from the [facility] I am calling today for your bi-weekly check in. I am sorry I missed your call. I will reach out to you again tomorrow. (if the third call I will reach out to you again next week) Enter next patient outreach date for the following business day using the Track Pt Outreach. End outreach. documented in this encounterMercy Health Tiffin Hospital10-11-2022 History of Present illness Narrative* Kami Hunter RN - 06/12/2022 1:36 PM EDT [facility] TELEPHONIC OUTREACH Provider Action/FYI: Contact made with patient: No - Left message Radha my name is Kami uHnter RN your Warping Mill Operator [facility] I am calling today for your bi-weekly check in. I am sorry I missed your call. I will reach out to you again in three weeks. (if the third call I will reach out to you again next week) Enter next patient outreach date for the following business day using the Track Pt Outreach. End outreach. documented in this encounterMercy Health Tiffin Hospital09-26-2022 Instructions* Patient Instructions* Shanita Green PA-C - 05/28/2022 10:38 AM EDT I would like you to see Dr. Shore for the overactive bladder. Try spliting the dose of trazodone. Taking one tablet at bedtime and then a 1/2 tablet when you wake in middle of the night. Follow up for routine check up in 3-4 months. documented in this encounterMercy Health Tiffin Hospital09-26-2022 History of Present illness Narrative* Shanita [...] UROLOGY Shanita Green PA-C documented in this encounterMercy Health Tiffin Hospital09-06-2022 History of Present illness Narrative* Kami [...] to speak with a social work steam heating installer to help give you support for any [...] you up for automated weekly questionnaires through Vine. This is an easy way for us [...] PtOutreach and End outreach. documented in this encounterMercy Health Tiffin Hospital09-06-2022 Miscellaneous Notes* Telephone Encounter - Melita [...] advise, Albania Gill RN documented in this encounterMercy Health Tiffin Hospital08-30-2022 Miscellaneous Notes* Telephone Encounter - Shanita [...] to the pharmacy. Please call patient at: [phone] Tarsha Centeno Pss Last refill 09/20/21 Qty: [...] to the pharmacy. Please call patient at: [phone] Tarsha Centeno Pss documented in this encounterMercy Health Tiffin Hospital08-23-2022 History of Present illness Narrative* Kami Hunter, [...] to speak with a social work steam heating installer to help give you support for any [...] you up for automated weekly questionnaires through Vine. This is an easy way for us [...] PtOutreach and End outreach. documented in this encounterMercy Health Tiffin Hospital08-22-2022 History of Present illness Narrative* Kami Hunter RN - 04/23/2022 3:36 PM EDT [facility] TELEPHONIC OUTREACH Provider Action/FYI: Contact made with patient: No - Left message Hello my name is Kami Hunter RN your Warping Mill Operator [facility] I am calling today for your bi-weekly check in. I am sorry I missed your call. I will reach out to you again tomorrow. (if the third call I will reach out to you again next week) Enter next patient outreach date for the following using the Track Pt Outreach. End outreach. documented in this encounterMercy Health Tiffin Hospital08-10-2022 Miscellaneous Notes* Telephone Encounter - Kami Hunter RN - 04/11/2022 2:10 PM EDT PRIMARY CARE COORDINATION QUICK NOTE Provider Action/FYI Per routing comment, pcp advises to schedule appt to discuss. Encounter routed to [facility] to call patient to schedule. Patient identified [...] Please send reply to Nurse Triage or [facility] as needed. Message received via: InSight - Yes contact made with patient ACTION TAKEN: Based on roller shop utility worker, the following disposition is advised: SYMPTOMS PRESENT NOT SEVERE: No action required - Continue outreach / Phone Call documented in this encounterMercy Health Tiffin Hospital08-09-2022 History of Present illness Narrative* Kami Hunter RN - 04/10/2022 3:50 PM EDT PRIMARY CARE COORDINATION QUICK NOTE Provider Action/FYI Radha this is Kami Hunter RN your nurse Warping Mill Operator. I am calling to provide you with a phone number to connect you with [facility]. This number is available 7 [...] name and date . documented in this encounterMercy Health Tiffin Hospital08-02-2022 History of Present illness Narrative* Kami [...] to speak with a social work steam heating installer to help give you support for any [...] you up for automated weekly questionnaires through Vine. This is an easy way for us [...] my name is Kami Hunter RN your Warping Mill Operator [facility] the [facility] I am calling today for your bi-weekly check in. I am sorry I missed your call. I will reach out to you again tomorrow. (if the third call I will reach out to you again next week) Enter next patient outreach date for the following business day using the Track Pt Outreach. End outreach. documented in this encounterMercy Health Tiffin Hospital07-29-2022 Miscellaneous Notes* Telephone Encounter - Joana Au RN - 03/30/2022 11:40 AM EDT Patient returned call and given provider's message below and patient verbalized understanding. Patient transferred to operations supervisor chemical cleaning. Susan Au RN * Telephone Encounter - [...] show a 5cm uterine fibroid. Will consult ammunition assembly laborer for any further recommendations from them. Shanita Green PA-C documented in this encounterMercy Health Tiffin Hospital07-28-2022 History of Present illness Narrative* RT Ken(Renata) [...] 29, 2022 11:14 AM documented in this encounterMercy Health Tiffin Hospital07-25-2022 Miscellaneous Notes* Telephone Encounter - Cely [...] normal. Shanita Green PA-C documented in this encounterMercy Health Tiffin Hospital07-22-2022 History of Present illness Narrative* Fina [...] 23, 2022 8:38 AM documented in this encounterMercy Health Tiffin Hospital07-22-2022 History of Present illness Narrative* Shanita Green PA-C - 03/23/2022 7:54 AM EDT Chief Complaint Patient presents with: Hospital Follow Up HPI Diony Ramirez is a 67 year old female who presents here today for Hospital Discharge Follow up.. Patient developed upper abdominal pain on 03/16. It did not improved so she went to 03/17/22 [facility]. Was found to have a small [...] DIFF Shanita Green PA-C documented in this encounterMercy Health Tiffin Hospital07-20-2022 History of Present illness Narrative* Kami Hunter RN - 03/21/2022 1:37 PM EDT [facility]IGHT CD TELEPHONIC OUTREACH Provider Action/FYI: Patient reports she is doing better since inpatient at [facility] for SBO. Patient has hospital follow [...] to speak with a social work steam heating installer to help give you support for any [...] you up for automated weekly questionnaires through Vine. This is an easy way for us [...] PtOutreach and End outreach. documented in this encounterMercy Health Tiffin Hospital07-19-2022 History of Present illness Narrative* Kami Hunter RN - 03/20/2022 2:01 PM EDT [facility] TELEPHONIC OUTREACH Provider Action/FYI: Contact made with patient: No - Left message Hello my name is Kami Hunter RN your Warping Mill Operator [facility] I am calling today for your bi-weekly check in. I am sorry I missed your call. I will reach out to you again tomorrow. (if the third call I will reach out to you again next week) Enter next patient outreach date for the following day using the Track Pt Outreach. End outreach. documented in this encounterMercy Health Tiffin Hospital07-13-2022 History of Present illness Narrative* Bashir [...] 14, 2022 10:51 AM documented in this encounterMercy Health Tiffin Hospital07-13-2022 History of Present illness Narrative* Bernard [...] cushion. Bernard Elliott MD documented in this encounterMercy Health Tiffin Hospital07-05-2022 History of Present illness Narrative* Kami [...] to speak with a social work steam heating installer to help give you support for any [...] you up for automated weekly questionnaires through Vine. This is an easy way for us [...] PtOutreach and End outreach. documented in this encounterMercy Health Tiffin Hospital07-01-2022 History of Present illness Narrative* Kami Hunter RN - 03/02/2022 1:22 PM EDT [facility] TELEPHONIC OUTREACH Provider Action/FYI: Contact made with patient: No - Left message Hello my name is Kami Hunter RN your Warping Mill Operator from the [facility] I am calling today for your bi-weekly check in. I am sorry I missed your call. I will reach out to you again tomorrow. (if the third call I will reach out to you again next week) Enter next patient outreach date for the following business day using the Track Pt Outreach. End outreach. [facility] History of Present illness Narrative* Kami Hunter RN - 02/15/2022 3:18 PM EDT INSIGHT [facility] TELEPHONIC OUTREACH Provider Action/FYI: Contact made with patient: No - Unable to leave message Entered next patient outreach date for the following business day, if third call please enter next outreach date for one week in the Track Pt. Outreach - End Outreach documented in this encounterMer[facility] History of Present illness Narrative* Good [...] name and date . Kami Hunter RN Fitter'S Assistant * Rito Camp MD - 02/01/2022 3:42 [...] to speak with a social work steam heating installer to help give you support for any [...] you up for automated weekly questionnaires through [employer]. This is an easy way for us [...] PtOutreach and End outreach. documented in this encounterMer[facility] History of Present illness Narrative* Kami Hunter [...] to speak with a social work steam heating installer to help give you support for any [...] you up for automated weekly questionnaires through [employer]. This is an easy way for us [...] PtOutreach and End outreach. documented in this encounterMer[facility]05[facility]22 Miscellaneous Notes* Telephone Encounter - Rito [...] urgent care for evaluation. documented in this encounterMer[facility]05[facility] History of Present illness Narrative* Shanna Newton APRN.MERCHANDISE EXAMINER - 01/10/2022 9:58 AM EDT CC: Patient [...] Shanna Newton APRN.LUIS FELIPE documented in this encounterMer[facility] History of Present illness Narrative* Kami Hunter RN - 01/02/2022 2:31 PM EDT INSIGHT [facility] TELEPHONIC OUTREACH Provider Action/FYI: Pt had returned [...] to speak with a social work steam heating installer to help give you support for any [...] you up for automated weekly questionnaires through [employer]. This is an easy way for us [...] my name is Kami Hunter RN your Warping Mill Operator from the [facility] I am calling today for your bi-weekly check in. I am sorry I missed your call. I will reach out to you again tomorrow. (if the third call I will reach out to you again next week) Enter next patient outreach date for the following business day using the Track Pt Outreach. End outreach. documented in this encounterMer[facility]04-26-2022 Miscellaneous Notes* Telephone Encounter - Shanita [...] more vitamins than needed. documented in this encounterMer[facility]04[facility]22-2022 Miscellaneous Notes* Telephone Encounter - Melita [...] come back. Please advise. documented in this encounterMer[facility]04-20-2022 Miscellaneous Notes* Telephone Encounter - Fannie [...] Patient states she has been taking about [id number] international unit(s) of Vit D a day [...] process. Shanita Green PA-C documented in this encounterMer[facility]04-19-[facility] History of Present illness Narrative* Shanita [...] HYDROXY Shanita Green PA-C documented in this encounterMer[facility]04-18-2022 History of Present illness Narrative* Kami Hunter RN - 12/18/2021 2:32 PM EDT [facility] TELEPHONIC OUTREACH Provider Action/FYI: Pt reports she [...] to speak with a social work steam heating installer to help give you support for any [...] you up for automated weekly questionnaires through [employer]. This is an easy way for us [...] PtOutreach and End outreach. documented in this encounterMer[facility]04-04-2022 History of Present illness Narrative* Kami Hunter RN - 12/04/2021 3:14 PM EDT [facility] TELEPHONIC OUTREACH Provider Action/FYI: Pt reports she [...] to speak with a social work steam heating installer to help give you support for any [...] you up for automated weekly questionnaires through [employer]. This is an easy way for us [...] PtOutreach and End outreach. documented in this encounterMer[facility]04-17-2021 History of Present illness Narrative* Bashir Landa)Uriah [...] 17, 2020 10:08 AM documented in this encounterMer[facility]11-21-2020 History of Present illness Narrative* Kita [...] 23, 2020 10:01 AM documented in this encounterMer[facility]11-21-2020 Miscellaneous Notes* Result Encounter Note - Darvin Gold III - 07/23/2020 9:50 AM EST Good news chest x-ray is normal. No evidence of pneumonia. Darvin Gold III, MD, FAAFP documented in this encounterMercy [facility]11-21-2020 Progress note* Result Encounter Note - Darvin Gold III - 07/23/2020 9:50 AM EST Good news chest x-ray is normal. No evidence of pneumonia. Darvin Gold III, MD, FAAFP [facility] History of Past illness Narrative* Problem [...] of this encounter (statuses as of 12/04/2021) [facility] Narrative* Problem [...] of this encounter (statuses as of 12/18/2021) [facility] Narrative* Problem [...] of this encounter (statuses as of 12/19/2021) [facility] Narrative* Problem [...] of this encounter (statuses as of 12/20/2021) [facility] N[facility]ative* Problem [...] of this encounter (statuses as of 12/22/2021) [facility]* Problem [...] of this encounter (statuses as of 12/26/2021) [facility] N[facility]ative* Problem [...] of this encounter (statuses as of 01/02/2022) [facility]* Problem [...] of this encounter (statuses as of 01/10/2022) [facility]* Problem [...] of this encounter (statuses as of 01/10/2022) [facility]* Problem [...] of this encounter (statuses as of 01/15/2022) [facility] N[facility]* Problem [...] of this encounter (statuses as of 02/01/2022) [facility]* Problem [...] of this encounter (statuses as of 02/15/2022) [facility]* Problem [...] of this encounter (statuses as of 03/02/2022) [facility]* Problem [...] of this encounter (statuses as of 03/06/2022) [facility]* Problem [...] of this encounter (statuses as of 03/14/2022) [facility] Problem [...] of this encounter (statuses as of 03/20/2022) [facility]* Problem [...] of this encounter (statuses as of 03/21/2022) [facility]* Problem [...] of this encounter (statuses as of 03/23/2022) [facility]* Problem [...] of this encounter (statuses as of 03/26/2022) [facility]* Problem [...] of this encounter (statuses as of 03/30/2022) [facility]* Problem [...] of this encounter (statuses as of 03/30/2022) [facility]* Problem [...] of this encounter (statuses as of 04/03/2022) [facility]* Problem [...] of this encounter (statuses as of 04/10/2022) [facility]* Problem [...] of this encounter (statuses as of 04/11/2022) [facility] Problem [...] of this encounter (statuses as of 04/23/2022) [facility] Problem [...] of this encounter (statuses as of 04/24/2022) [facility] Problem [...] of this encounter (statuses as of 05/01/2022) [facility] Problem [...] of this encounter (statuses as of 05/08/2022) [facility] Problem [...] of this encounter (statuses as of 05/08/2022) [facility] Problem [...] of this encounter (statuses as of 05/28/2022) [facility] Problem [...] of this encounter (statuses as of 06/12/2022) [facility] Problem [...] of this encounter (statuses as of 07/02/2022) [facility] Problem [...] of this encounter (statuses as of 07/04/2022) [facility] Problem [...] of this encounter (statuses as of 07/05/2022) [facility] Problem [...] of this encounter (statuses as of 07/09/2022) [facility] Problem [...] of this encounter (statuses as of 07/09/2022) [facility] Problem [...] of this encounter (statuses as of 07/09/2022) [facility] Problem [...] of this encounter (statuses as of 07/23/2022) [facility] Problem [...] of this encounter (statuses as of 07/31/2022) [facility] Problem [...] of this encounter (statuses as of 08/03/2022) [facility] Problem [...] of this encounter (statuses as of 08/14/2022) [facility] Problem [...] of this encounter (statuses as of 08/17/2022) [facility] Problem [...] of this encounter (statuses as of 09/04/2022) [facility] Problem [...] of this encounter (statuses as of 09/12/2022) [facility] Problem [...] of this encounter (statuses as of 09/17/2022) [facility] Problem [...] of this encounter (statuses as of 09/27/2022) [facility] Problem [...] of this encounter (statuses as of 11/06/2022) [facility] Problem [...] of this encounter (statuses as of 11/12/2022) [facility] Problem [...] of this encounter (statuses as of 11/19/2022) [facility] Problem [...] of this encounter (statuses as of 11/19/2022) [facility] Problem [...] of this encounter (statuses as of 11/20/2022) [facility] Problem [...] of this encounter (statuses as of 12/05/2022) [facility] Problem [...] of this encounter (statuses as of 12/06/2022) [facility] Problem [...] of this encounter (statuses as of 12/07/2022) [facility] Problem [...] of this encounter (statuses as of 01/01/2023) [facility] Problem [...] of this encounter (statuses as of 01/07/2023) [facility] Problem [...] of this encounter (statuses as of 02/15/2023) [facility] Problem [...] of this encounter (statuses as of 02/20/2023) [facility] Problem [...] of this encounter (statuses as of 02/21/2023) [facility] Problem [...] of this encounter (statuses as of 02/26/2023) [facility] Problem [...] of this encounter (statuses as of 02/27/2023) [facility] Problem [...] of this encounter (statuses as of 02/27/2023) [facility] Problem [...] of this encounter (statuses as of 03/01/2023) [facility] Problem [...] of this encounter (statuses as of 03/08/2023) [facility] Problem [...] of this encounter (statuses as of 04/17/2023) [facility] Problem [...] of this encounter (statuses as of 05/07/2023) [facility] Problem [...] of this encounter (statuses as of 05/15/2023) [facility] Problem [...] of this encounter (statuses as of 06/04/2023) [facility] Problem [...] of this encounter (statuses as of 06/05/2023) [facility] Problem [...] of this encounter (statuses as of 06/07/2023) [facility] Problem [...] of this encounter (statuses as of 06/08/2023) [facility] Problem [...] of this encounter (statuses as of 06/12/2023) [facility] Problem [...] of this encounter (statuses as of 06/13/2023) [facility] Problem [...] of this encounter (statuses as of 06/20/2023) [facility] Problem [...] of this encounter (statuses as of 06/21/2023) [facility] Problem [...] of this encounter (statuses as of 06/28/2023) [facility] Problem [...] of this encounter (statuses as of 07/06/2023) [facility] Problem [...] of this encounter (statuses as of 07/06/2023) [facility] Problem [...] of this encounter (statuses as of 07/06/2023) [facility] Problem [...] of this encounter (statuses as of 07/06/2023) [facility] Problem [...] of this encounter (statuses as of 07/06/2023) [facility] Problem [...] of this encounter (statuses as of 07/06/2023) [facility] Problem [...] of this encounter (statuses as of 07/15/2023) [facility] Problem [...] of this encounter (statuses as of 07/22/2023) [facility] Problem [...] of this encounter (statuses as of 08/01/2023) [facility] Problem [...] of this encounter (statuses as of 08/07/2023) [facility] Problem [...] of this encounter (statuses as of 08/23/2023) [facility] Problem [...] of this encounter (statuses as of 10/07/2023) [facility] Problem [...] of this encounter (statuses as of 10/15/2023) [facility] Problem [...] of this encounter (statuses as of 10/16/2023) [facility] Problem [...] of this encounter (statuses as of 10/21/2023) [facility] Problem [...] of this encounter (statuses as of 10/22/2023) [facility] Problem [...] of this encounter (statuses as of 11/08/2023) [facility] Problem [...] of this encounter (statuses as of 11/19/2023) [facility] Problem [...] of this encounter (statuses as of 12/14/2023) [facility] Problem [...] of this encounter (statuses as of 12/17/2023) [facility] Problem [...] of this encounter (statuses as of 12/18/2023) [facility] Problem [...] of this encounter (statuses as of 12/22/2023) [facility] Author Filipe Rahman [facility] Note Date/Time March 31, 2025 9:02 am [facility] Medical Records Department [address] [place] [address] Anesthesia Postop Eval I 03/31/25 0900 MR#: [id number] Acct: [id number] Name: JENA RAMIREZ HUDSON Rep #:[id number] : 1955 70 From: Filipe Rahman PCP: Dr. Rito Camp MD Status:REG SDC Y Race: C Location: [place] [address] Anesthesia: Postop Eval I Current Vital Signs [...] Filipe Childsignkelsi Signature: Date CC: ~ Signed [facility] Work Phone: Consult note Author Gustavo Roque [facility] Note Date/Time March 31, 2025 9:38 am [facility] Medical Records Department [address] [place] [id number] Anesthesia Postop Eval II 03/31/25921 MR#: [id number] Acct: [id number] Name: JENA RAMIREZ Rep #:[id number] : 1955 70 From: Gustavo Nguyen PCP: Dr. Rito Camp MD Status:REG [facility] [place] [place] Y Race: C Location: [place] [address] Anesthesia Postop Eval I Sum Postop Eval [...] MD Cosigner Signature: Date CC: ~ Signed [facility] Work Phone: Consult note Author Gustavo Roque [facility] Note Date/Time March 31, 2025 9:38 am [facility] Medical Records Department [address] [place] [address] Pre-Anesthesia Evaluation 03/31/25922 MR#: [id number] Acct: [id number] Name: JENA RAMIREZ HUDSON Rep #:[id number] : 1955 70 From: Gustavo Nguyen PCP: Dr. 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 Hx Hospitalization No 03/25/25 16:02 Any Problems [...] take am of surgery PONV PONV - manager real estate: PONV - manager real estate Female Yes 03/25/25 16:02 HX of Motion [...] 03/31/25 07:10 Respiratory Assessment Respiratory Assessment - manager real estate: Respiratory Tract Infection Hx - manager real estate Hx Respiratory Tract Infection No 03/25/25 16:02 STOP Sleep Apnea STOP Sleep Apnea - manager real estate: STOP Sleep Apnea - manager real estate Hx Hypertension Yes: PER PT, CONTROLLED ON [...] Tobacco Use History Tobacco Use History - manager real estate: Tobacco Use History - manager real estate Tobacco Use Smoking Status Former smoker 03/25/25 16:02 Hx Tobacco Use No 03/25/25 16:02 Years Smoking Packs Smoked per Day Smoking Cessation Date was Yes - quit smoking within 15 03/25/25 16:02 within the last 15 years years Hx Smoking Cessation Date 02/24/16 03/25/25 16:02 Hx Smoking Cessation No 03/25/25 16:02 Counseling Hematologic Medial History Hematologic Hx - manager real estate: Hematologic Medical Hx - chicken cutter Hx of Blood Transfusion No 03/25/25 16:02 [...] confused, unrespo /Reproduction History /Reproductive History - manager real estate: /Reproductive Hx- manager real estate Hx Now No 03/25/25 16:02 Gestational Age [...] signed by Gustavo Roque MD> Date _ Gutsavo Roque MD Cosigner Signature: Date CC: ~ Signed [facility] Work Phone: Evaluation noteNo assessment information available [facility] Work Phone: Evaluation note* Diagnosis Brittle nails- Primary Other specified disease of nail [facility] Diagnosis High serum vitamin B12- Primary High vitamin D level Hypervitaminosis D [facility] Diagnosis Cough- Primary [facility]* Diagnosis Coccyx pain- Primary Other disorder of coccyx [facility]* Diagnosis Onset Date Resolution Status Abdominal pain acute Nausea acute Partial small bowel obstruction acute [facility] Work Phone: Evaluation note* Diagnosis Partial intestinal obstruction, unspecified cause (HCC)- Primary Enlarged uterus Hypertrophy of uterus Lower abdominal pain Abdominal pain, other specified site Bruising Contusion of unspecified site [facility]* Diagnosis Enlarged uterus Hypertrophy of uterus Lower abdominal pain Abdominal pain, other specified site documented [facility]* Diagnosis Uterine leiomyoma, unspecified location- Primary [facility]* Diagnosis Essential hypertension, benign [facility]* Diagnosis Onset Date Resolution Status Abdominal pain resolved Nausea resolved Lung nodule acute Nicotine dependence, cigarettes, in remission acute Asthma-COPD overlap syndrome chronic [facility] Work Phone: Evaluation note* Diagnosis Psychophysiological insomnia- Primary Persistent disorder of initiating or maintaining sleep Overactive bladder Hypertonicity of bladder [facility]* Diagnosis Suspected COVID-19 virus infection- Primary [facility]* Diagnosis Feeling of chest tightness- Primary Other chest pain Chest heaviness Other chest pain Lab test positive for detection of COVID-19 virus SOB (shortness of breath) Shortness of breath [facility]* Diagnosis Encounter for gynecological examination (general) (routine) without abnormal findings- Primary Encounter for screening mammogram for breast cancer [facility] [facility] Diagnosis Essential hypertension, benign [facility] Diagnosis Elevated blood sugar- Primary Other abnormal glucose Essential hypertension, benign Multiple thyroid nodules Nontoxic multinodular goiter Medication management Encounter for long-term (current) use of other medications GERD without esophagitis Esophageal reflux [facility] Diagnosis Medicare annual wellness visit, subsequent- [...] fracture presence- [facility] Weight loss- Primary Loss of weight Ex-smoker Personal history of tobacco use, presenting hazards to health Multiple thyroid nodules Nontoxic multinodular goiter Lung nodules Other nonspecific abnormal finding of lung field Osteoporosis, unspecified osteoporosis type, unspecified pathological fracture presence [facility] Essential hypertension, benign [facility] Diagnosis Ex-smoker- Primary Personal history [...] hazards to health [facility] Diagnosis Thrombocytosis- Primary Essential thrombocythemia [facility] Diagnosis Thrombocytosis- Primary Essential thrombocythemia [facility] Diagnosis Psychophysiological insomnia Persistent disorder of initiating or maintaining sleep [facility] Diagnosis Elevated blood sugar- Primary Other abnormal glucose Essential hypertension, benign Multiple thyroid nodules Nontoxic multinodular goiter Medication management Encounter for long-term (current) use of other medications GERD without esophagitis Esophageal reflux [facility] Diagnosis Onset Date Resolution Status Vitamin D toxicity acute Osteoporosis chronic Asthma-COPD overlap syndrome chronic Smoking greater than 30 pack years chronic Abdominal pain acute Nausea acute SBO (small bowel obstruction) acute [facility] Work Phone: Evaluation note* Diagnosis Onset Date Resolution Status Vitamin D toxicity acute Osteoporosis chronic Asthma-COPD overlap syndrome chronic Smoking greater than 30 pack years chronic Abdominal pain acute Alcoholism acute Nausea acute SBO (small bowel obstruction) acute [facility] Work Phone: Evaluation note* Diagnosis S/p small bowel obstruction- Primary Personal history of other diseases of digestive system documented in this encounter [facility]* Diagnosis Leukocytosis, unspecified type- Primary documented in this encounter [facility] note* Diagnosis Bronchitis- Primary Bronchitis, not specified as acute or chronic Asthma with COPD with exacerbation (HCC) Chronic obstructive asthma with exacerbation Suspected COVID-19 virus infection documented in this encounter [facility] note* Diagnosis Axillary lump, right- Primary [facility]* Diagnosis S/p small bowel obstruction Personal history of other diseases of digestive system documented [facility] this [facility]* Diagnosis Psychophysiological insomnia Persistent disorder of initiating or maintaining sleep documented [facility] this [facility]* Diagnosis Weight loss Loss of weight Ex-smoker Personal history of tobacco use, presenting hazards to health [facility] this [facility]* Diagnosis Encounter for screening mammogram for malignant neoplasm of breast Other screening mammogram [facility] Diagnosis Osteoporosis, unspecified osteoporosis type, unspecified pathological fracture presence [facility] Diagnosis New onset of headaches after age 51 Headache [facility] Diagnosis Weight loss Loss of weight Ex-smoker Personal history of tobacco use, presenting hazards to health Lung nodules Other nonspecific abnormal finding of lung field documented in this encounter [facility] note* Diagnosis Chronic bilateral low back pain with sciatica, sciatica laterality unspecified- Primary documented in this encounter [facility] note* Diagnosis Chronic bilateral low back pain with sciatica, sciatica laterality unspecified- Primary [facility]* Diagnosis Chronic bilateral low back pain with sciatica, sciatica laterality unspecified- Primary documented in this encounter [facility] note* Diagnosis Essential hypertension, benign Psychophysiological insomnia Persistent disorder of initiating or maintaining sleep documented [facility] this [facility]* Diagnosis Neck pain- Primary Cervicalgia Acute pain of right shoulder documented in this encounter [facility] note* Diagnosis COPD with exacerbation (HCC)- Primary Obstructive chronic bronchitis with exacerbation documented in this encounter [facility] note* Diagnosis URI, acute- Primary Acute upper respiratory infections of unspecified site COPD with exacerbation (HCC) Obstructive chronic bronchitis with exacerbation URI, acute Acute upper respiratory infections of unspecified site documented in this encounter [facility] note* Diagnosis Onset Date Resolution Status Asthma-COPD overlap syndrome chronic Smoking greater than 30 pack years [facility] Work Phone: Evaluation note* Diagnosis Fall, initial encounter- Primary Pain of left clavicle Acute pain of left shoulder Pain of left clavicle Fall, initial encounter Acute pain of left shoulder documented in this encounter [facility] note* Diagnosis Fall, initial encounter- Primary Acute pain of left shoulder [facility]* Diagnosis Fall (on) (from) other stairs and steps, initial encounter- Primary Rib pain on right side Chest pain, unspecified Fall (on) (from) other stairs and steps, initial encounter Rib pain on right side Chest pain, unspecified documented in this encounter [facility] note* Diagnosis Fall, initial encounter Acute pain of left shoulder Acute pain of left shoulder- Primary documented in this encounter [facility] note* Diagnosis Fall, initial encounter Acute pain of left shoulder [facility]* Diagnosis Tendinopathy of rotator cuff, unspecified laterality- Primary documented [facility] this [facility]* Diagnosis Pain of left clavicle Fall, initial encounter Acute pain of left shoulder documented [facility] this [facility]* Diagnosis Fall (on) (from) other stairs and steps, initial encounter Rib pain on right side Chest pain, unspecified documented [facility] this [facility]* Diagnosis URI, acute Acute upper respiratory infections of unspecified site documented in this encounter [facility] note* Diagnosis Neck pain Cervicalgia Acute pain of right shoulder documented [facility]* Diagnosis Lumbar radiculopathy Thoracic or lumbosacral neuritis or radiculitis, unspecified Numbness and tingling of both legs Disturbance of skin sensation Acute bilateral low back pain with bilateral sciatica documented in this encounter [facility] note* Diagnosis Pain Generalized pain documented in this encounter [facility] note* Diagnosis Feeling of chest tightness Other chest pain documented [facility] this [facility]* Diagnosis Coccyx pain Other disorder of coccyx documented in this [facility]* Diagnosis Partial intestinal obstruction, unspecified cause ([facility] documented in this encounter [facility]* Diagnosis Dysuria- Primary documented [facility] this [facility]* Diagnosis Acute cystitis without hematuria- Primary Acute cystitis documented in this encounter [facility]* Diagnosis Respiratory infection- Primary Other diseases of respiratory system, not elsewhere classified documented in this encounter [facility]* Diagnosis Pneumonia due to COVID-19 virus documented in this encounter [facility] note* Diagnosis Encounter for screening mammogram for breast cancer [facility] Diagnosis Acute cough- Primary Bacterial pneumonia Bacterial pneumonia, unspecified Acute cough documented in this encounter [facility] note* Diagnosis Acute cough [facility] Diagnosis Left hip pain- Primary Pain in joint, pelvic region and thigh documented [facility] this encounter [facility]* Diagnosis Left hip pain Pain in joint, pelvic region and thigh documented [facility] this [facility]* Diagnosis Arnold-Chiari malformation (HCC)- Primary Spina [...] pathological fracture presence documented in this encounter [facility]* Diagnosis Pain in left hip- Primary Pain in joint, pelvic region and thigh [facility] Diagnosis Essential hypertension, benign Screening for depression [facility]* Diagnosis Medicare annual wellness visit, subsequent- [...] of other medications [facility] Diagnosis Pain in left hip- Primary Pain in joint, pelvic region and thigh [facility]* Diagnosis Psychophysiological insomnia Persistent disorder of initiating or maintaining sleep [facility] Diagnosis Pain in left hip- Primary Pain in joint, pelvic region and thigh Chronic bilateral low back pain with sciatica, sciatica laterality unspecified [facility] Diagnosis GERD without esophagitis- Primary Esophageal reflux Choking in adult [facility]* Diagnosis Osteoporosis, unspecified osteoporosis type, unspecified pathological fracture presence [facility] Diagnosis Osteoporosis, unspecified osteoporosis type, unspecified pathological fracture presence- Primary [facility] Diagnosis Injury of right toe, initial encounter- Primary Psychophysiological insomnia Persistent disorder of initiating or maintaining sleep Ectatic thoracic aorta Thoracic aortic ectasia Injury of right toe, initial encounter [facility] Diagnosis Injury of right toe, initial encounter [facility] Diagnosis Psychophysiological insomnia- Primary Persistent disorder of initiating or maintaining sleep Easy bruising Other symptoms involving skin and integumentary tissues Lumbar radiculopathy Thoracic or lumbosacral neuritis or radiculitis, unspecified documented in this encounter [facility]* Diagnosis Lumbar radiculopathy- Primary Thoracic or lumbosacral neuritis or radiculitis, unspecified Lumbar back pain Lumbago Radiculopathy of lumbar region Thoracic or lumbosacral neuritis or radiculitis, unspecified documented in this encounter [facility] note* Diagnosis Lumbar radiculopathy- Primary Thoracic or lumbosacral neuritis or radiculitis, unspecified Lumbar back pain Lumbago Radiculopathy of lumbar region Thoracic or lumbosacral neuritis or radiculitis, unspecified documented in this encounter [facility]* Diagnosis Injury of right wrist, initial encounter- Primary Injury of right wrist, initial encounter documented in this encounter [facility]* Diagnosis Injury of right wrist, initial encounter documented in this encounter [facility] Discharge instructionsAmbulatory Orders* Speech Therapy Referral Location: None [facility] Work Phone: [facility] for referral (narrative)* Diagnostic Procedure Only (Urgent) - Closed Specialty Diagnoses / Procedures Referred By Contac t Referred To Contact XR IMAGING Diagnoses Coccyx pain Procedures XR SACRUM/COCCYX 3V AP/LAT RADEX SACRUM & COCCYX MINIMUM 2 VIEWS Bernard Elliott MD [address] [place] [address] [facility] Referral ID Status Reason Start Date Expiration Date V isits Requested Visits Authorized [id number] Closed Auto-Generate d Referral 03/14/2022 04/13/2023 1 1 [facility] for referral (narrative)* Diagnostic Procedure Only (Routine) - Authorized Specialty Diagnoses / Procedures Referred By Contac t Referred To Contact US IMAGING Diagnoses Enlarged uterus Lower abdominal pain Procedures US FEMALE PELVIS TRANSVAG US TRANSVAGINAL Shanita Green PA-C [address] [place] [address] [facility] Referral ID Status Reason Start Date Expiration Date Visits Requested Visits Authorized [id number] Authorized Auto-Generat ed Referral 03/23/2022 04/22/2023 1 1 * Diagnostic Procedure Only (Routine) - Authorized Specialty Diagnoses / Procedures Referred By Contac t Referred To Contact US IMAGING Diagnoses Enlarged uterus Lower abdominal pain Procedures US FEMALE PELVIS TRANSABD COMPLETE US PELVIC NONOBSTETRIC REAL-TIME IMAGE COMPLETE Shanita Green PA-C [address] [place] [address] [facility] Referral ID Status Reason Start Date Expiration Date Visits Requested Visits Authorized [id number] Authorized Auto-Generat ed Referral 03/23/2022 04/22/2023 1 1 * Diagnostic Procedure Only (Routine) - Closed Specialty Diagnoses / Procedures Referred By Contac t Referred To Contact XR IMAGING Diagnoses Partial intestinal obstruction, unspecified cause (HCC) Procedures XR ABDOMEN 1V SUPINE RADIOLOGIC EXAM ABDOMEN 1 VIEW Shanita Green PA-C [address] [place] [address] Xr Imaging Referral ID Status Reason Start Date Expiration Date V isits Requested Visits Authorized [id number] Closed Auto-Generate d Referral 03/23/2022 04/22/2023 1 1 [facility] for referral (narrative)* Diagnostic Procedure Only (Routine) - Closed Specialty Diagnoses / Procedures Referred By Contac t Referred To Contact US IMAGING Diagnoses Enlarged uterus Lower abdominal pain Procedures US FEMALE PELVIS TRANSVAG US TRANSVAGINAL Shanita Green PA-C [address] [place] [address] [facility] Imaging Referral ID Status Reason Start Date Expiration Date V isits Requested Visits Authorized [id number] Closed Auto-Generate d Referral 03/23/2022 04/22/2023 1 1 [facility] for referral (narrative)* Outpatient Procedure (Routine) - Closed Specialty Diagnoses / Procedures Referred By Castillo t Referred To Contact [facility] Diagnoses Feeling of chest tightness Chest heaviness SOB (shortness of breath) Procedures ECG COMPLETE ECG ROUTINE ECG W/LEAST 12 LDS W/I&R RyanlogSweetie garcia APRN.CNP [address] [place] [address] [facility] [address] [place] [address] Referral ID Status Reason Start Date Expiration Date V isits Requested Visits Authorized [id number] Closed Auto-Generate d Referral 07/09/2022 07/09/2023 1 1 [facility] for referral (narrative)* Diagnostic Procedure Only (Routine) - Pending Review Specialty Diagnoses / Procedures Referred By Castillo argueta Referred To Contact BR IMAGING Diagnoses Encounter for gynecological examination (general) (routine) without abnormal findings Encounter for screening mammogram for breast cancer Procedures MARCIANO SCREENING SCREENING MAMMOGRAPHY BI 2-VIEW BREAST INC Ashleigh Santiago APRN.CNP [address] [place] [address] [facility] [address] [place] [address] Referral ID Status Reason Start Date Expiration Date Visits Requested Visits Authorized [id number] Pending Review Auto-Generat ed Referral 2 08/30/2023 1 1 [facility] for referral (narrative)* Diagnostic Procedure Only (Routine) - Closed Specialty Diagnoses / Procedures Referred By Castillo t Referred To Contact US IMAGING Diagnoses Weight loss Ex-smoker Procedures US ABDOMEN COMPLETE US ABDOMINAL REAL TIME W/IMAGE DOCUMENTATION Rito Camp MD [address] [place] [address] [place] [address] Referral ID Status Reason Start Date Expiration Date V isits Requested Visits Authorized [id number] Closed Auto-Generate d Referral 11/19/2022 12/19/2023 1 1 [facility] for referral (narrative)* Diagnostic Procedure Only (Routine) - Closed Specialty Diagnoses / Procedures Referred By Contac t Referred To Contact [facility] Diagnoses Encounter for screening mammogram for malignant neoplasm of breast Procedures MARCIANO SCREENING SCREENING MAMMOGRAPHY BI 2-VIEW [employer]AST [employer] Ashleigh Santiago APRN.MERCHANDISE EXAMINER [address] [place] [address] [facility] [address] [place] [address] Referral ID Status Reason Start Date Expiration Date V isits Requested Visits Authorized [id number] Closed Auto-Generate d Referral 05/15/2022 06/14/2023 1 1 [facility] for referral (narrative)* Diagnostic Procedure Only (Routine) - Closed Specialty Diagnoses / Procedures Referred By Contac t Referred To Contact XR IMAGING Diagnoses Neck pain Acute pain of right shoulder Procedures XR SHOULDER GENERAL 3V OR MORE AP/TRUE AP/OTHER RIGHT RADEX SHOULDER COMPLETE MINIMUM 2 VIEWS Shanita Green PA-C [address] [place] [address] [place] [address] Referral ID Status Reason Start Date Expiration Date V isits Requested Visits Authorized [id number] Closed Auto-Generate d Referral 10/15/2023 11/13/2024 1 1 * Diagnostic Procedure Only (Routine) - Closed Specialty Diagnoses / Procedures Referred By Contac t Referred To Contact XR IMAGING Diagnoses Neck pain Acute pain of right shoulder Procedures XR CERV OTHER 4V AP/LAT/OBL RADEX SPINE CERVICAL 4 OR 5 VIEWS Shanita Green PA-C [address] [place] [address] [place] [address] Referral ID Status Reason Start Date Expiration Date V isits Requested Visits Authorized [id number] Closed Auto-Generate d Referral 10/15/2023 11/13/2024 1 1 [facility] for referral (narrative)* Diagnostic Procedure Only (Urgent) - Closed Specialty Diagnoses / Procedures Referred By Contac t Referred To Contact XR IMAGING Diagnoses Acute pain of left shoulder Fall, initial encounter Procedures XR SHOULDER GENERAL 3V OR MORE AP/TRUE AP/OTHER LEFT RADEX SHOULDER COMPLETE MINIMUM 2 VIEWS Podlogar, JOI PittN.MERCHANDISE EXAMINER [address] [place] [address] [place] [address] Referral ID Status Reason Start Date Expiration Date V isits Requested Visits Authorized [id number] Closed Auto-Generate d Referral 03/18/2024 04/17/2025 1 1 * Diagnostic Procedure Only (Urgent) - Closed Specialty Diagnoses / Procedures Referred By Contac t Referred To Contact XR IMAGING Diagnoses Pain of left clavicle Fall, initial encounter Procedures XR CLAVICLE 2V LEFT RADEX CLAVICLE COMPLETE Podlogar, JOI PittN.MERCHANDISE EXAMINER [address] [place] [address] [place] [address] Referral ID Status Reason Start Date Expiration Date V isits Requested Visits Authorized [id number] Closed Auto-Generate d Referral 03/18/2024 04/17/2025 1 1 [facility] for referral (narrative)* Diagnostic Procedure Only (Urgent) - Closed Specialty Diagnoses / Procedures Referred By Contac t Referred To Contact XR IMAGING Diagnoses Acute pain of left shoulder Fall, initial encounter Procedures XR SHOULDER GENERAL 3V OR MORE AP/TRUE AP/OTHER LEFT RADEX SHOULDER COMPLETE MINIMUM 2 VIEWS Podlogar, ALAN Pitt.MERCHANDISE EXAMINER [address] [place] [address] [place] [address] Referral ID Status Reason Start Date Expiration Date V isits Requested Visits Authorized [id number] Closed Auto-Generate d Referral 03/18/2024 04/17/2025 1 1 * Diagnostic Procedure Only (Urgent) - Closed Specialty Diagnoses / Procedures Referred By Contac t Referred To Contact XR IMAGING Diagnoses Pain of left clavicle Fall, initial encounter Procedures XR CLAVICLE 2V LEFT RADEX CLAVICLE COMPLETE PodlogSweetie garcia APRN.CNP [address] [place] [address] [place] [address] Referral ID Status Reason Start Date Expiration Date V isits Requested Visits Authorized [id number] Closed Auto-Generate d Referral 03/18/2024 04/17/2025 1 1 [facility] for referral (narrative)* Diagnostic Procedure Only (Routine) - Closed Specialty Diagnoses / Procedures Referred By Contac t Referred To Contact XR IMAGING Diagnoses Neck pain Acute pain of right shoulder Procedures XR SHOULDER GENERAL 3V OR MORE AP/TRUE AP/OTHER RIGHT RADEX SHOULDER COMPLETE MINIMUM 2 VIEWS Shanita Green PA-C [address] [place] [address] [place] [address] Referral ID Status Reason Start Date Expiration Date V isits Requested Visits Authorized [id number] Closed Auto-Generate d Referral 10/15/2023 11/13/2024 1 1 * Diagnostic Procedure Only (Routine) - Closed Specialty Diagnoses / Procedures Referred By Contac t Referred To Contact XR IMAGING Diagnoses Neck pain Acute pain of right shoulder Procedures XR CERV OTHER 4V AP/LAT/OBL RADEX SPINE CERVICAL 4 OR 5 VIEWS Shanita Green PA-C [address] [place] [address] [place] [address] Referral ID Status Reason Start Date Expiration Date V isits Requested Visits Authorized [id number] Closed Auto-Generate d Referral 10/15/2023 11/13/2024 1 1 [facility] for referral (narrative)* Diagnostic Procedure Only (Routine) - Closed Specialty Diagnoses / Procedures Referred By Contac t Referred To Contact XR IMAGING Diagnoses Lumbar radiculopathy Numbness and tingling of both legs Procedures XR HIP BILATERAL 5V PEL/AP/LAT EACH HIP RADEX HIPS BILATERAL WITH PELVIS MINIMUM 5 VIEWS Alex Brown APRN.MERCHANDISE EXAMINER [address] [place] [address] [place] [address] Referral ID Status Reason Start Date Expiration Date V isits Requested Visits Authorized [id number] Closed Auto-Generate d Referral 08/15/2023 09/13/2024 1 1 * Diagnostic Procedure Only (Routine) - Closed Specialty Diagnoses / Procedures Referred By Contac t Referred To Contact XR IMAGING Diagnoses Lumbar radiculopathy Numbness and tingling of both legs Acute bilateral low back pain with bilateral sciatica Procedures XR LUMBAR MOTION 4V AP/LAT/ FLEX/EXT RADEX SPINE LUMBOSACRAL MINIMUM 4 VIEWS Alex Brown APRN.MERCHANDISE EXAMINER [address] [place] [address] [place] [address] Referral ID Status Reason Start Date Expiration Date V isits Requested Visits Authorized [id number] Closed Auto-Generate d Referral 08/15/2023 09/13/2024 1 1 [facility] for referral (narrative)* Diagnostic Procedure Only (Urgent) - Closed Specialty Diagnoses / Procedures Referred By Contac t Referred To Contact XR IMAGING Diagnoses Pain Procedures XR WRIST INJURY 4V PA/LAT/OBL/SCAPH RIGHT RADEX WRIST COMPLETE MINIMUM 3 VIEWS Shanna Newton APRN.MERCHANDISE EXAMINER [address] [place] [address] [place] [address] Referral ID Status Reason Start Date Expiration Date V isits Requested Visits Authorized [id number] Closed Auto-Generate d Referral 12/18/2022 01/17/2024 1 1 [facility] for referral (narrative)* Diagnostic Procedure Only (Urgent) - Closed Specialty Diagnoses / Procedures Referred By Contac t Referred To Contact XR IMAGING Diagnoses Coccyx pain Procedures XR SACRUM/COCCYX 3V AP/LAT RADEX SACRUM & COCCYX MINIMUM 2 VIEWS Bernard Elliott MD [address] [place] [id number] [place] [address] Referral ID Status Reason Start Date Expiration Date V isits Requested Visits Authorized [id number] Closed Auto-Generate d Referral 03/14/2022 04/13/2023 1 1 [facility] for referral (narrative)* Diagnostic Procedure Only (Routine) - Closed Specialty Diagnoses / Procedures Referred By Contac t Referred To Contact XR IMAGING Diagnoses Partial intestinal obstruction, unspecified cause (HCC) Procedures XR ABDOMEN 1V SUPINE RADIOLOGIC EXAM ABDOMEN 1 VIEW Shanita Green PA-C [address] [place] [address] [place] [address] Referral ID Status Reason Start Date Expiration Date V isits Requested Visits Authorized [id number] Closed Auto-Generate d Referral 03/23/2022 04/22/2023 1 1 [facility] for referral (narrative)* Diagnostic Procedure Only (Routine) - Closed Specialty Diagnoses / Procedures Referred By Contac t Referred To Contact XR IMAGING Diagnoses Left hip pain Procedures XR HIP GENERAL 3V PELV/AP/LAT LEFT RADEX HIP UNILATERAL WITH PELVIS 2-3 VIEWS Alex Brown APRN.CNP [address] [place] [address] [place] [address] Referral ID Status Reason Start Date Expiration Date V isits Requested Visits Authorized [id number] Closed Auto-Generate d Referral 08/03/2024 09/02/2025 1 1 [facility] for referral (narrative)* Diagnostic Procedure Only (Routine) - Authorized Specialty Diagnoses / Procedures Referred By Contac t Referred To Contact XR IMAGING Diagnoses Osteoporosis, unspecified osteoporosis type, unspecified pathological fracture presence Procedures DXA-AXIAL SKELETON DXA BONE DENSITY STUDY SITES AXIAL Rito Tripp MD [address] [place] [address] [place] [address] Referral ID Status Reason Start Date Expiration Date Visits Requested Visits Authorized [id number] Authorized Auto-Generat ed Referral 10/01/2024 10/31/2025 1 1 [facility] for referral (narrative)No reason for referral information availableWBrecksville [facility] Phone[facility] N[facility]ative* Diagnostic Procedure Only (Routine) - Closed Specialty Diagnoses / Procedures Referred By Contac t Referred To Contact BR IMAGING Diagnoses Encounter for screening mammogram for malignant neoplasm of breast Procedures MARCIANO SCREENING SCREENING MAMMOGRAPHY BI 2-VIEW BREAST INC CAD Ashleigh Negrete APRN.MERCHANDISE EXAMINER [address] [place] [address] Br Imaging [address] [place] [address] Referral ID Status Reason Start Date Expiration Date V isits Requested Visits Authorized [id number] Closed Auto-Generate d Referral 05/15/2022 06/14/2023 1 1 [facility] for visit Narrative* Diagnostic Procedure Only (Urgent) - Closed Specialty Diagnoses / Procedures Referred By Contac t Referred To Contact XR IMAGING Diagnoses Acute pain of left shoulder Fall, initial encounter Procedures XR SHOULDER GENERAL 3V OR MORE AP/TRUE AP/OTHER LEFT RADEX SHOULDER COMPLETE MINIMUM 2 VIEWS PodlogarSweetie APRN.MERCHANDISE EXAMINER [address] [place] [address] [place] [address] Referral ID Status Reason Start Date Expiration Date V isits Requested Visits Authorized [id number] Closed Auto-Generate d Referral 03/18/2024 04/17/2025 1 1 [facility] for visit Narrative* Diagnostic Procedure Only (Routine) - Closed Specialty Diagnoses / Procedures Referred By Contac t Referred To Contact XR IMAGING Diagnoses Neck pain Acute pain of right shoulder Procedures XR SHOULDER GENERAL 3V OR MORE AP/TRUE AP/OTHER RIGHT RADEX SHOULDER COMPLETE MINIMUM 2 VIEWS Shanita Green PA-C [address] [place] [address] [place] [address] Referral ID Status Reason Start Date Expiration Date V isits Requested Visits Authorized [id number] Closed Auto-Generate d Referral 10/15/2023 11/13/2024 1 1 [facility] for visit Narrative* Diagnostic Procedure Only (Routine) - Closed Specialty Diagnoses / Procedures Referred By Contac t Referred To Contact XR IMAGING Diagnoses Lumbar radiculopathy Numbness and tingling of both legs Procedures XR PELVIS 3V AP/INLET/OUTLET RADIOLOGIC EXAM PELVIS COMPL MINIMUM 3 VIEWS Alex Brown, ALAN.MERCHANDISE EXAMINER [address] [place] [address] [place] [address] Referral ID Status Reason Start Date Expiration Date V isits Requested Visits Authorized [id number] Closed Auto-Generate d Referral 08/15/2023 09/13/2024 1 1 [facility] for visit Narrative* Diagnostic Procedure Only (Urgent) - Closed Specialty Diagnoses / Procedures Referred By Contac t Referred To Contact XR IMAGING Diagnoses Pain Procedures XR WRIST INJURY 4V PA/LAT/OBL/SCAPH RIGHT RADEX WRIST COMPLETE MINIMUM 3 VIEWS Shanna Newton, MARKETER.MERCHANDISE EXAMINER [address] [place] [address] [place] [address] Referral ID Status Reason Start Date Expiration Date V isits Requested Visits Authorized [id number] Closed Auto-Generate d Referral 12/18/2022 01/17/2024 1 1 [facility] for visit Narrative* Diagnostic Procedure Only (Urgent) - Closed Specialty Diagnoses / Procedures Referred By Contac t Referred To Contact XR IMAGING Diagnoses Coccyx pain Procedures XR SACRUM/COCCYX 3V AP/LAT RADEX SACRUM & COCCYX MINIMUM 2 VIEWS Bernard Elliott MD [address] [place] [address] [place] [address] Referral ID Status Reason Start Date Expiration Date V isits Requested Visits Authorized [id number] Closed Auto-Generate d Referral 03/14/2022 04/13/2023 1 1 [facility] for visit Narrative* Diagnostic Procedure Only (Routine) - Closed Specialty Diagnoses / Procedures Referred By Contac t Referred To Contact XR IMAGING Diagnoses Partial intestinal obstruction, unspecified cause (HCC) Procedures XR ABDOMEN 1V SUPINE RADIOLOGIC EXAM ABDOMEN 1 VIEW Shanita Green PA-C [address] [place] [address] [place] [address] Referral ID Status Reason Start Date Expiration Date V isits Requested Visits Authorized [id number] Closed Auto-Generate d Referral 03/23/2022 04/22/2023 1 1 [facility] for visit Narrative* Diagnostic Procedure Only (Routine) - Closed Specialty Diagnoses / Procedures Referred By Contac t Referred To Contact BR IMAGING Diagnoses Encounter for screening mammogram for breast cancer Procedures MARCIANO SCREENING SCREENING MAMMOGRAPHY BI 2-VIEW BREAST INC CAD Rito Camp MD [address] [place] [address] Br Imaging [address] [place] [address] Referral ID Status Reason Start Date Expiration Date V isits Requested Visits Authorized [id number] Closed Auto-Generate d Referral 06/09/2024 07/09/2025 1 1 [facility] for visit Narrative* Diagnostic Procedure Only (Routine) - Closed Specialty Diagnoses / Procedures Referred By Contac t Referred To Contact XR IMAGING Diagnoses Left hip pain Procedures XR HIP GENERAL 3V PELV/AP/LAT LEFT RADEX HIP UNILATERAL WITH PELVIS 2-3 VIEWS Alex Brown APRN.MERCHANDISE EXAMINER [address] [place] [address] [place] [address] Referral ID Status Reason Start Date Expiration Date V isits Requested Visits Authorized [id number] Closed Auto-Generate d Referral 08/03/2024 09/02/2025 1 1 [facility] for visit Narrative* Diagnostic Procedure Only (Routine) - Closed Specialty Diagnoses / Procedures Referred By Contac t Referred To Contact XR IMAGING Diagnoses Osteoporosis, unspecified osteoporosis type, unspecified pathological fracture presence Procedures DXA-AXIAL SKELETON DXA BONE DENSITY STUDY 1/> SITES AXIAL Rito Tripp MD [address] [place] [address] Phone: tel: fax: [place] [address] Referral ID Status Reason Start Date Expiration Date V isits Requested Visits Authorized [id number] Closed Auto-Generate d Referral 10/01/2024 10/31/2025 1 1 [facility] for visit Narrative* Diagnostic Procedure Only (Urgent) - Closed Specialty Diagnoses / Procedures Referred By Contac t Referred To Contact XR IMAGING Diagnoses Injury of right toe, initial encounter Procedures XR FOOT GENERAL 3V AP/LAT/OBL RIGHT XR FOOT GENERAL 3V AP/LAT/OBL RIGHT RADEX FOOT COMPLETE MINIMUM 3 VIEWS Shanita Green PA-C [address] [place] [address] Phone: tel: fax: [place] [address] Referral ID Status Reason Start Date Expiration Date V isits Requested Visits Authorized [id number] Closed Auto-Generate d Referral 01/05/2025 02/04/2026 1 1 [facility] for visit Narrative* Diagnostic Procedure Only (Urgent) - Closed Specialty Diagnoses / Procedures Referred By Contac t Referred To Contact XR IMAGING Diagnoses Injury of right wrist, initial encounter Procedures XR WRIST GENERAL 3V PA/LAT/OBL RIGHT RADEX WRIST COMPLETE MINIMUM 3 VIEWS Ky Shaver, MARKETER.MERCHANDISE EXAMINER [address] [place] [address] Phone: tel: fax: [place] [address] Referral ID Status Reason Start Date Expiration Date V isits Requested Visits Authorized [id number] Closed Auto-Generate d Referral 05/16/2025 06/15/2026 1 1 [facility] Advance Directives No Advanced Directives Records FoundDocuments on File Type Date Recorded 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 Advance Directive(s) 01/21/2018 12:19 PM Advance Directive(s) 06/27/2016 9:10 AM Advance Directive(s) 06/19/2016 1:09 PM Advance Directive(s) 12/12/2011 12:00 AM Advance Directive Response Recorded Date/ Time Advance Directives Yes July 4:55pm Living Will Yes February 28, 2021 6:17pm Power of Pan Shover Yes February 28 6:17pm Documents on File Type Date Recorded 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 Advance Directive(s) 01/21/2018 12:19 PM Advance Directive(s) 06/27/2016 9:10 AM Advance Directive(s) 06/19/2016 1:09 PM Advance Directive(s) 12/12/2011 12:00 AM Advance Directive Response Recorded Date/ Time Name of Medical Power of Pan Shover unsure March 17, 2022 6:05pm Advance Directives Yes July 4:55pm Living Will Yes March 17, 2022 6:05pm Power of Pan Shover Yes March 17 6:05pm Advance Directive Response Recorded Date/ Time Name of Medical Power of Pan Shover unsure March 17, 2022 6:05pm Advance Directives Yes July 4:55pm Living Will Yes March 17, 2022 10:51pm Power of Pan Shover No March 17 10:51pm Documents on File Type Date Recorded 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 Advance Directive(s) 01/21/2018 12:19 PM Advance Directive(s) 12/12/2011 Documents on File Type Date Recorded 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 Advance Directive(s) 01/21/2018 12:19 PM Advance Directive(s) 12/12/2011 Advance Directive Response Recorded Date/ Time Advance Directives Yes July 4:55pm Living Will No May 31, 2023 9:50pm Power of Pan Shover No May 9:50pm Advance Directive Response Recorded Date/ Time Name of Medical Power of Pan Shover Reina Watson June 01, 2023 2:55am Advance Directives Yes July 4:55pm Living Will Yes June 01, 2023 8:11am Power of Pan Shover Yes May 8:11am Advance Directive Response Recorded Date/ Time Advance Directives Yes July 4:55pm Living Will Yes June 01, 2023 8:11am Power of Pan Shover Yes May 8:11am Advance Directive Response Recorded Date/ Time Advance Directives Yes July 4:55pm Advance Directive Response Recorded Date/ Time Do you have a Healthcare Power of Pan Shover? Yes March 25, 2025 4:02pm Advance Directives [...] unspecified location Procedures CONSULT TO GYNECOLOGY OFFICE/OUTPATIENT [facility] 60-74 MINUTES Shanita Green PA-C [address] [place] [address] Referral ID Status Reason Start Date Expiration Date Visits Requested Visits Authorized [id number] Pending Review PCP Requested Referral Auto-Generate d Referral 03/30/2022 03/30/2023 1 1 Specialty Diagnoses / Procedures Referred By Castillo argueta Referred To Contact Urology Diagnoses Overactive bladder Procedures CONSULT TO UROLOGY OFFICE/OUTPATIENT [facility] 60-74 MINUTES Shanita Green PA-C [address] [place] [address] Referral ID Status Reason Start Date Expiration Date Visits Requested Visits Authorized [id number] Pending Review PCP Requested Referral 05/28/2022 05/28/2023 1 1 Specialty Diagnoses / Procedures Referred By Contac t Referred To Contact CT IMAGING Diagnoses Weight loss Ex-smoker Lung nodules Procedures CT CHEST WO IVCON DIAGNOSTIC COMPUTED TOMOGRAPHY THORAX W/O CNTRST Rito Camp MD [address] [place] [address] Referral ID Status Reason Start Date Expiration Date Visits Requested Visits Authorized [id number] Authorized Auto-Generat ed Referral 11/19/2022 12/19/2023 1 1 Specialty Diagnoses / Procedures Referred By Contac t Referred To Contact Endocrinology Diagnoses Osteoporosis, unspecified osteoporosis type, unspecified pathological fracture presence Procedures CONSULT TO ENDOCRINOLOGY OFFICE/OUTPATIENT [facility] 60-74 MINUTES Rito Camp MD [address] [place] [address] Referral ID Status Reason Start Date Expiration Date Visits Requested Visits Authorized [id number] Pending Review PCP Requested Referral 11/19/2022 11/19/2023 1 1 Specialty Diagnoses / Procedures Referred By Contac t Referred To Contact US IMAGING Diagnoses Weight loss Ex-smoker Procedures US ABDOMEN COMPLETE US ABDOMINAL REAL TIME W/IMAGE DOCUMENTATION Rito Camp MD [address] [place] [address] Us Imaging Referral ID Status Reason Start Date Expiration Date Visits Requested Visits Authorized [id number] Authorized Auto-Generat ed Referral 11/19/2022 12/19/2023 1 1 Specialty Diagnoses / Procedures Referred By Contac t Referred To Contact CT IMAGING Diagnoses Ex-smoker Weight loss, unintentional Procedures CT ABD/PEL W IVCON CT ABD & PELVIS W/CONTRAST Rito Camp MD [address] [place] [address] Imaging Referral ID Status Reason Start Date Expiration Date Visits Requested Visits Authorized [id number] Authorized Auto-Generat ed Referral 12/04/2022 01/03/2024 1 1 Specialty Diagnoses / Procedures Referred By Contac t Referred To Contact CT IMAGING Diagnoses New onset of headaches after age 51 Procedures CTA HEAD W IVCON CT ANGIOGRAPHY HEAD W/CONTRAST/NONCONTRAST Alex Brown APRN.MERCHANDISE EXAMINER [address] [place] [address] Imaging Referral ID Status Reason Start Date Expiration Date Visits Requested Visits Authorized [id number] Authorized Auto-Generat ed Referral 02/15/2023 03/16/2024 1 1 Specialty Diagnoses / Procedures Referred By Contac t Referred To Contact Allergy Diagnoses Runny nose Procedures CONSULT TO ALLERGY/IMMUNOLOGY OFFICE/OUTPATIENT [facility] 60-74 MINUTES Alex Brown APRN.MERCHANDISE EXAMINER [address] [place] [address] Referral ID Status Reason Start Date Expiration Date Visits Requested Visits Authorized [id number] Pending Review PCP Requested Referral 02/15/2023 02/15/2024 1 1 Specialty Diagnoses / Procedures Referred By Contac t Referred To Contact General Surgery Diagnoses S/p small bowel obstruction Procedures CONSULT TO GENERAL SURGERY OFFICE/OUTPATIENT [facility] 60-74 MINUTES Alex Brown APRN.MERCHANDISE EXAMINER [address] [place] [address] Referral ID Status Reason Start Date Expiration Date Visits Requested Visits Authorized [id number] Pending Review PCP Requested Referral 06/04/2023 06/03/2024 1 1 Specialty Diagnoses / Procedures Referred By Contac t Referred To Contact General Surgery Diagnoses Axillary lump, right Procedures CONSULT TO GENERAL SURGERY OFFICE/OUTPATIENT [facility] 60-74 MINUTES Shanita Green PA-C [address] [phone] Referral ID Status Reason Start Date Expiration Date Visits Requested Visits Authorized [id number] Pending Review PCP Requested Referral 06/10/2024 1 1 Specialty Diagnoses / Procedures Referred By Contac t Referred To Contact CT IMAGING Diagnoses New onset of headaches after age 51 Procedures CTA HEAD W IVCON CT ANGIOGRAPHY HEAD W/CONTRAST/NONCONTRAST Alex Brown APRN.MERCHANDISE EXAMINER [address] [place] [address] [address] [place] [address] Referral ID Status Reason Start Date Expiration Date V isits Requested Visits Authorized [id number] Closed Auto-Generate d Referral 02/15/2023 03/16/2024 1 1 Specialty Diagnoses / Procedures Referred By Contac t Referred To Contact CT IMAGING Diagnoses Weight loss Ex-smoker Lung nodules Procedures CT CHEST WO IVCON DIAGNOSTIC COMPUTED TOMOGRAPHY THORAX W/O CNTRST Rito Camp MD [address] [place] [address] [place] [address] Referral ID Status Reason Start Date Expiration Date V isits Requested Visits Authorized [id number] Closed Auto-Generate d Referral 11/19/2022 12/19/2023 1 1 Specialty Diagnoses / Procedures Referred By Contac t Referred To Contact Orthopedics Diagnoses Fall, initial encounter Acute pain of left shoulder Procedures CONSULT TO ORTHOPAEDICS OFFICE/OUTPATIENT [facility] 60 MINUTES Alex Brown, MARKETER.MERCHANDISE EXAMINER [address] [place], [place] [id number] Referral ID Status Reason Start Date Expiration Date Visits Requested Visits Authorized [id number] Authorized PCP Requested Referral 03/26/2024 03/26/2025 1 1 Specialty Diagnoses / Procedures Referred By Contac t Referred To Contact MR IMAGING Diagnoses Fall, initial encounter Acute pain of left shoulder Procedures MRI SHOULDER WO/W IVCON LEFT MRI ANY JT UPPER EXTREMITY W/O & W/CONTR Alex Lora, MARKETER.MERCHANDISE EXAMINER [address] [place] [address] [place] [address] Referral ID Status Reason Start Date Expiration Date Visits Requested Visits Authorized [id number] New Request Auto-Generat ed Referral 03/26/2024 04/25/2025 1 1 Specialty Diagnoses / Procedures Referred By Contac t Referred To Contact MR IMAGING Diagnoses Acute pain of left shoulder Procedures MRI SHOULDER WO IVCON LEFT MRI ANY JT UPPER EXTREMITY W/O CONTRAST Alex Lora, MARKETER.MERCHANDISE EXAMINER [facility] [place] [address] [place] [address] Referral ID Status Reason Start Date Expiration Date V isits Requested Visits Authorized [id number] Closed Auto-Generate d Referral 04/24/2024 07/22/2024 1 1 Specialty Diagnoses / Procedures Referred By Contac t Referred To Contact [facility] Diagnoses Tendinopathy of rotator cuff, unspecified laterality Procedures CONSULT TO PHYSICAL THERAPY PHYSICAL THERAPY EVALUATION HIGH COMPLEX 45 MINS Alex Brown APRN.MERCHANDISE EXAMINER [address] [place] [address] [facility] [address] [address] Referral ID Status Reason Start Date Expiration Date Visits Requested Visits Authorized [id number] Pending Review Auto-Generat ed Referral 04/27/2024 04/27/2025 1 1 Specialty Diagnoses / Procedures Referred By Contac t Referred To Contact [facility] Diagnoses Left hip pain Procedures CONSULT TO PHYSICAL THERAPY PHYSICAL THERAPY EVALUATION HIGH COMPLEX 45 MINS Shanita Green PA-C [address] [place] [address] [facility] [address] [address] Referral ID Status Reason Start Date Expiration Date V isits Requested Visits Authorized [id number] Closed Auto-Generate d Referral 08/05/2024 08/05/2025 1 [...] or prosecute any alcohol or drug abuse patient.[facility] the event this information is protected by the Federal Confidentiality of Alcohol and Drug Abuse Patient Records regulations: The Federal rules restrict any use of the information to criminally investigate or prosecute any alcohol or drug abuse patient.[facility] the event this information is protected by the Federal Confidentiality of Alcohol and Drug Abuse Patient Records regulations: The Federal rules restrict any use of the information to criminally investigate or prosecute any alcohol or drug abuse patient.[facility] the event this information is protected by the Federal Confidentiality of Alcohol and Drug Abuse Patient Records regulations: The Federal rules restrict any use of the information to criminally investigate or prosecute any alcohol or drug abuse patient.[facility] Hospital[facility] the event this information is protected by the Federal Confidentiality of Alcohol and Drug Abuse Patient Records regulations: The Federal rules restrict any use of the information to criminally investigate or prosecute any alcohol or drug abuse patient.[facility] HospitalIn the event this information is protected by the Federal Confidentiality of Alcohol and Drug Abuse Patient Records regulations: The Federal rules restrict any use of the information to criminally investigate or prosecute any alcohol or drug abuse patient.[facility] Hospital[facility] the event this information is protected by the Federal Confidentiality of Alcohol and Drug Abuse Patient Records regulations: The Federal rules restrict any use of the information to criminally investigate or prosecute any alcohol or drug abuse patient.[facility] Hospital[facility] the event this information is protected by the Federal Confidentiality of Alcohol and Drug Abuse Patient Records regulations: The Federal rules restrict any use of the information to criminally investigate or prosecute any alcohol or drug abuse patient.[facility] HospitalIn the event this information is protected by the Federal Confidentiality of Alcohol and Drug Abuse Patient Records regulations: The Federal rules restrict any use of the information to criminally investigate or prosecute any alcohol or drug abuse patient.[facility] Hospital[facility] the event this information is protected by the Federal Confidentiality of Alcohol and Drug Abuse Patient Records regulations: The Federal rules restrict any use of the information to criminally investigate or prosecute any alcohol or drug abuse patient.[facility] Hospital[facility] the event this information is protected by the Federal Confidentiality of Alcohol and Drug Abuse Patient Records regulations: The Federal rules restrict any use of the information to criminally investigate or prosecute any alcohol or drug abuse patient.[facility] HospitalIn the event this information is protected by the Federal Confidentiality of Alcohol and Drug Abuse Patient Records regulations: The Federal rules restrict any use of the information to criminally investigate or prosecute any alcohol or drug abuse patient.[facility] Hospital[facility] the event this information is protected by the Federal Confidentiality of Alcohol and Drug Abuse Patient Records regulations: The Federal rules restrict any use of the information to criminally investigate or prosecute any alcohol or drug abuse patient.[facility] HospitalIn the event this information is protected by the Federal Confidentiality of Alcohol and Drug Abuse Patient Records regulations: The Federal rules restrict any use of the information to criminally investigate or prosecute any alcohol or drug abuse patient.[facility] HospitalIn the event this information is protected by the Federal Confidentiality of Alcohol and Drug Abuse Patient Records regulations: The Federal rules restrict any use of the information to criminally investigate or prosecute any alcohol or drug abuse patient.[facility] HospitalIn the event this information is protected by the Federal Confidentiality of Alcohol and Drug Abuse Patient Records regulations: The Federal rules restrict any use of the information to criminally investigate or prosecute any alcohol or drug abuse patient.[facility] HospitalIn the event this information is protected by the Federal Confidentiality of Alcohol and Drug Abuse Patient Records regulations: The Federal rules restrict any use of the information to criminally investigate or prosecute any alcohol or drug abuse patient.[facility] HospitalIn the event this information is protected by the Federal Confidentiality of Alcohol and Drug Abuse Patient Records regulations: The Federal rules restrict any use of the information to criminally investigate or prosecute any alcohol or drug abuse patient.[facility] HospitalIn the event this information is protected by the Federal Confidentiality of Alcohol and Drug Abuse Patient Records regulations: The Federal rules restrict any use of the information to criminally investigate or prosecute any alcohol or drug abuse patient.[facility] HospitalIn the event this information is protected by the Federal Confidentiality of Alcohol and Drug Abuse Patient Records regulations: The Federal rules restrict any use of the information to criminally investigate or prosecute any alcohol or drug abuse patient.[facility] HospitalIn the event this information is protected by the Federal Confidentiality of Alcohol and Drug Abuse Patient Records regulations: The Federal rules restrict any use of the information to criminally investigate or prosecute any alcohol or drug abuse patient.[facility] HospitalIn the event this information is protected by the Federal Confidentiality of Alcohol and Drug Abuse Patient Records regulations: The Federal rules restrict any use of the information to criminally investigate or prosecute any alcohol or drug abuse patient.[facility] HospitalIn the event this information is protected by the Federal Confidentiality of Alcohol and Drug Abuse Patient Records regulations: The Federal rules restrict any use of the information to criminally investigate or prosecute any alcohol or drug abuse patient.[facility] HospitalIn the event this information is protected by the Federal Confidentiality of Alcohol and Drug Abuse Patient Records regulations: The Federal rules restrict any use of the information to criminally investigate or prosecute any alcohol or drug abuse patient.[facility] HospitalIn the event this information is protected by the Federal Confidentiality of Alcohol and Drug Abuse Patient Records regulations: The Federal rules restrict any use of the information to criminally investigate or prosecute any alcohol or drug abuse patient.[facility] HospitalIn the event this information is protected by the Federal Confidentiality of Alcohol and Drug Abuse Patient Records regulations: The Federal rules restrict any use of the information to criminally investigate or prosecute any alcohol or drug abuse patient.[facility] HospitalIn the event this information is protected by the Federal Confidentiality of Alcohol and Drug Abuse Patient Records regulations: The Federal rules restrict any use of the information to criminally investigate or prosecute any alcohol or drug abuse patient.[facility] HospitalIn the event this information is protected by the Federal Confidentiality of Alcohol and Drug Abuse Patient Records regulations: The Federal rules restrict any use of the information to criminally investigate or prosecute any alcohol or drug abuse patient.[facility] HospitalIn the event this information is protected by the Federal Confidentiality of Alcohol and Drug Abuse Patient Records regulations: The Federal rules restrict any use of the information to criminally investigate or prosecute any alcohol or drug abuse patient.[facility] HospitalIn the event this information is protected by the Federal Confidentiality of Alcohol and Drug Abuse Patient Records regulations: The Federal rules restrict any use of the information to criminally investigate or prosecute any alcohol or drug abuse patient.[facility] HospitalIn the event this information is protected by the Federal Confidentiality of Alcohol and Drug Abuse Patient Records regulations: The Federal rules restrict any use of the information to criminally investigate or prosecute any alcohol or drug abuse patient.[facility] HospitalIn the event this information is protected by the Federal Confidentiality of Alcohol and Drug Abuse Patient Records regulations: The Federal rules restrict any use of the information to criminally investigate or prosecute any alcohol or drug abuse patient.[facility] HospitalIn the event this information is protected by the Federal Confidentiality of Alcohol and Drug Abuse Patient Records regulations: The Federal rules restrict any use of the information to criminally investigate or prosecute any alcohol or drug abuse patient.[facility] HospitalIn the event this information is protected by the Federal Confidentiality of Alcohol and Drug Abuse Patient Records regulations: The Federal rules restrict any use of the information to criminally investigate or prosecute any alcohol or drug abuse patient.[facility] HospitalIn the event this information is protected by the Federal Confidentiality of Alcohol and Drug Abuse Patient Records regulations: The Federal rules restrict any use of the information to criminally investigate or prosecute any alcohol or drug abuse patient.[facility] HospitalIn the event this information is protected by the Federal Confidentiality of Alcohol and Drug Abuse Patient Records regulations: The Federal rules restrict any use of the information to criminally investigate or prosecute any alcohol or drug abuse patient.[facility] HospitalIn the event this information is protected by the Federal Confidentiality of Alcohol and Drug Abuse Patient Records regulations: The Federal rules restrict any use of the information to criminally investigate or prosecute any alcohol or drug abuse patient.[facility] HospitalIn the event this information is protected by the Federal Confidentiality of Alcohol and Drug Abuse Patient Records regulations: The Federal rules restrict any use of the information to criminally investigate or prosecute any alcohol or drug abuse patient.[facility] HospitalIn the event this information is protected by the Federal Confidentiality of Alcohol and Drug Abuse Patient Records regulations: The Federal rules restrict any use of the information to criminally investigate or prosecute any alcohol or drug abuse patient.[facility] HospitalIn the event this information is protected by the Federal Confidentiality of Alcohol and Drug Abuse Patient Records regulations: The Federal rules restrict any use of the information to criminally investigate or prosecute any alcohol or drug abuse patient.[facility] HospitalIn the event this information is protected by the Federal Confidentiality of Alcohol and Drug Abuse Patient Records regulations: The Federal rules restrict any use of the information to criminally investigate or prosecute any alcohol or drug abuse patient.[facility] HospitalIn the event this information is protected by the Federal Confidentiality of Alcohol and Drug Abuse Patient Records regulations: The Federal rules restrict any use of the information to criminally investigate or prosecute any alcohol or drug abuse patient.[facility] HospitalIn the event this information is protected by the Federal Confidentiality of Alcohol and Drug Abuse Patient Records regulations: The Federal rules restrict any use of the information to criminally investigate or prosecute any alcohol or drug abuse patient.[facility] HospitalIn the event this information is protected by the Federal Confidentiality of Alcohol and Drug Abuse Patient Records regulations: The Federal rules restrict any use of the information to criminally investigate or prosecute any alcohol or drug abuse patient.[facility] HospitalIn the event this information is protected by the Federal Confidentiality of Alcohol and Drug Abuse Patient Records regulations: The Federal rules restrict any use of the information to criminally investigate or prosecute any alcohol or drug abuse patient.[facility] HospitalIn the event this information is protected by the Federal Confidentiality of Alcohol and Drug Abuse Patient Records regulations: The Federal rules restrict any use of the information to criminally investigate or prosecute any alcohol or drug abuse patient.[facility] HospitalIn the event this information is protected by the Federal Confidentiality of Alcohol and Drug Abuse Patient Records regulations: The Federal rules restrict any use of the information to criminally investigate or prosecute any alcohol or drug abuse patient.[facility] HospitalIn the event this information is protected by the Federal Confidentiality of Alcohol and Drug Abuse Patient Records regulations: The Federal rules restrict any use of the information to criminally investigate or prosecute any alcohol or drug abuse patient.[facility] HospitalIn the event this information is protected by the Federal Confidentiality of Alcohol and Drug Abuse Patient Records regulations: The Federal rules restrict any use of the information to criminally investigate or prosecute any alcohol or drug abuse patient.[facility] HospitalIn the event this information is protected by the Federal Confidentiality of Alcohol and Drug Abuse Patient Records regulations: The Federal rules restrict any use of the information to criminally investigate or prosecute any alcohol or drug abuse patient.[facility] HospitalIn the event this information is protected by the Federal Confidentiality of Alcohol and Drug Abuse Patient Records regulations: The Federal rules restrict any use of the information to criminally investigate or prosecute any alcohol or drug abuse patient.[facility] HospitalIn the event this information is protected by the Federal Confidentiality of Alcohol and Drug Abuse Patient Records regulations: The Federal rules restrict any use of the information to criminally investigate or prosecute any alcohol or drug abuse patient.[facility] HospitalIn the event this information is protected by the Federal Confidentiality of Alcohol and Drug Abuse Patient Records regulations: The Federal rules restrict any use of the information to criminally investigate or prosecute any alcohol or drug abuse patient.[facility] HospitalIn the event this information is protected by the Federal Confidentiality of Alcohol and Drug Abuse Patient Records regulations: The Federal rules restrict any use of the information to criminally investigate or prosecute any alcohol or drug abuse patient.[facility] HospitalIn the event this information is protected by the Federal Confidentiality of Alcohol and Drug Abuse Patient Records regulations: The Federal rules restrict any use of the information to criminally investigate or prosecute any alcohol or drug abuse patient.[facility] HospitalIn the event this information is protected by the Federal Confidentiality of Alcohol and Drug Abuse Patient Records regulations: The Federal rules restrict any use of the information to criminally investigate or prosecute any alcohol or drug abuse patient.[facility] HospitalIn the event this information is protected by the Federal Confidentiality of Alcohol and Drug Abuse Patient Records regulations: The Federal rules restrict any use of the information to criminally investigate or prosecute any alcohol or drug abuse patient.[facility] HospitalIn the event this information is protected by the Federal Confidentiality of Alcohol and Drug Abuse Patient Records regulations: The Federal rules restrict any use of the information to criminally investigate or prosecute any alcohol or drug abuse patient.[facility] HospitalIn the event this information is protected by the Federal Confidentiality of Alcohol and Drug Abuse Patient Records regulations: The Federal rules restrict any use of the information to criminally investigate or prosecute any alcohol or drug abuse patient.[facility] HospitalIn the event this information is protected by the Federal Confidentiality of Alcohol and Drug Abuse Patient Records regulations: The Federal rules restrict any use of the information to criminally investigate or prosecute any alcohol or drug abuse patient.[facility] HospitalIn the event this information is protected by the Federal Confidentiality of Alcohol and Drug Abuse Patient Records regulations: The Federal rules restrict any use of the information to criminally investigate or prosecute any alcohol or drug abuse patient.[facility] HospitalIn the event this information is protected by the Federal Confidentiality of Alcohol and Drug Abuse Patient Records regulations: The Federal rules restrict any use of the information to criminally investigate or prosecute any alcohol or drug abuse patient.[facility] HospitalIn the event this information is protected by the Federal Confidentiality of Alcohol and Drug Abuse Patient Records regulations: The Federal rules restrict any use of the information to criminally investigate or prosecute any alcohol or drug abuse patient.[facility] HospitalIn the event this information is protected by the Federal Confidentiality of Alcohol and Drug Abuse Patient Records regulations: The Federal rules restrict any use of the information to criminally investigate or prosecute any alcohol or drug abuse patient.[facility] HospitalIn the event this information is protected by the Federal Confidentiality of Alcohol and Drug Abuse Patient Records regulations: The Federal rules restrict any use of the information to criminally investigate or prosecute any alcohol or drug abuse patient.[facility] HospitalIn the event this information is protected by the Federal Confidentiality of Alcohol and Drug Abuse Patient Records regulations: The Federal rules restrict any use of the information to criminally investigate or prosecute any alcohol or drug abuse patient.[facility] HospitalIn the event this information is protected by the Federal Confidentiality of Alcohol and Drug Abuse Patient Records regulations: The Federal rules restrict any use of the information to criminally investigate or prosecute any alcohol or drug abuse patient.[facility] HospitalIn the event this information is protected by the Federal Confidentiality of Alcohol and Drug Abuse Patient Records regulations: The Federal rules restrict any use of the information to criminally investigate or prosecute any alcohol or drug abuse patient.[facility] HospitalIn the event this information is protected by the Federal Confidentiality of Alcohol and Drug Abuse Patient Records regulations: The Federal rules restrict any use of the information to criminally investigate or prosecute any alcohol or drug abuse patient.[facility] HospitalIn the event this information is protected by the Federal Confidentiality of Alcohol and Drug Abuse Patient Records regulations: The Federal rules restrict any use of the information to criminally investigate or prosecute any alcohol or drug abuse patient.[facility] HospitalIn the event this information is protected by the Federal Confidentiality of Alcohol and Drug Abuse Patient Records regulations: The Federal rules restrict any use of the information to criminally investigate or prosecute any alcohol or drug abuse patient.[facility] HospitalIn the event this information is protected by the Federal Confidentiality of Alcohol and Drug Abuse Patient Records regulations: The Federal rules restrict any use of the information to criminally investigate or prosecute any alcohol or drug abuse patient.[facility] HospitalIn the event this information is protected by the Federal Confidentiality of Alcohol and Drug Abuse Patient Records regulations: The Federal rules restrict any use of the information to criminally investigate or prosecute any alcohol or drug abuse patient.[facility] HospitalIn the event this information is protected by the Federal Confidentiality of Alcohol and Drug Abuse Patient Records regulations: The Federal rules restrict any use of the information to criminally investigate or prosecute any alcohol or drug abuse patient.[facility] HospitalIn the event this information is protected by the Federal Confidentiality of Alcohol and Drug Abuse Patient Records regulations: The Federal rules restrict any use of the information to criminally investigate or prosecute any alcohol or drug abuse patient.[facility] HospitalIn the event this information is protected by the Federal Confidentiality of Alcohol and Drug Abuse Patient Records regulations: The Federal rules restrict any use of the information to criminally investigate or prosecute any alcohol or drug abuse patient.[facility] HospitalIn the event this information is protected by the Federal Confidentiality of Alcohol and Drug Abuse Patient Records regulations: The Federal rules restrict any use of the information to criminally investigate or prosecute any alcohol or drug abuse patient.[facility] HospitalIn the event this information is protected by the Federal Confidentiality of Alcohol and Drug Abuse Patient Records regulations: The Federal rules restrict any use of the information to criminally investigate or prosecute any alcohol or drug abuse patient.[facility] HospitalIn the event this information is protected by the Federal Confidentiality of Alcohol and Drug Abuse Patient Records regulations: The Federal rules restrict any use of the information to criminally investigate or prosecute any alcohol or drug abuse patient.[facility] HospitalIn the event this information is protected by the Federal Confidentiality of Alcohol and Drug Abuse Patient Records regulations: The Federal rules restrict any use of the information to criminally investigate or prosecute any alcohol or drug abuse patient.[facility] HospitalIn the event this information is protected by the Federal Confidentiality of Alcohol and Drug Abuse Patient Records regulations: The Federal rules restrict any use of the information to criminally investigate or prosecute any alcohol or drug abuse patient.[facility] HospitalIn the event this information is protected by the Federal Confidentiality of Alcohol and Drug Abuse Patient Records regulations: The Federal rules restrict any use of the information to criminally investigate or prosecute any alcohol or drug abuse patient.[facility] HospitalIn the event this information is protected by the Federal Confidentiality of Alcohol and Drug Abuse Patient Records regulations: The Federal rules restrict any use of the information to criminally investigate or prosecute any alcohol or drug abuse patient.[facility] HospitalIn the event this information is protected by the Federal Confidentiality of Alcohol and Drug Abuse Patient Records regulations: The Federal rules restrict any use of the information to criminally investigate or prosecute any alcohol or drug abuse patient.[facility] HospitalIn the event this information is protected by the Federal Confidentiality of Alcohol and Drug Abuse Patient Records regulations: The Federal rules restrict any use of the information to criminally investigate or prosecute any alcohol or drug abuse patient.[facility] HospitalIn the event this information is protected by the Federal Confidentiality of Alcohol and Drug Abuse Patient Records regulations: The Federal rules restrict any use of the information to criminally investigate or prosecute any alcohol or drug abuse patient.[facility] HospitalIn the event this information is protected by the Federal Confidentiality of Alcohol and Drug Abuse Patient Records regulations: The Federal rules restrict any use of the information to criminally investigate or prosecute any alcohol or drug abuse patient.[facility] HospitalIn the event this information is protected by the Federal Confidentiality of Alcohol and Drug Abuse Patient Records regulations: The Federal rules restrict any use of the information to criminally investigate or prosecute any alcohol or drug abuse patient.[facility] HospitalIn the event this information is protected by the Federal Confidentiality of Alcohol and Drug Abuse Patient Records regulations: The Federal rules restrict any use of the information to criminally investigate or prosecute any alcohol or drug abuse patient.[facility] HospitalIn the event this information is protected by the Federal Confidentiality of Alcohol and Drug Abuse Patient Records regulations: The Federal rules restrict any use of the information to criminally investigate or prosecute any alcohol or drug abuse patient.[facility] HospitalIn the event this information is protected by the Federal Confidentiality of Alcohol and Drug Abuse Patient Records regulations: The Federal rules restrict any use of the information to criminally investigate or prosecute any alcohol or drug abuse patient.[facility] HospitalIn the event this information is protected by the Federal Confidentiality of Alcohol and Drug Abuse Patient Records regulations: The Federal rules restrict any use of the information to criminally investigate or prosecute any alcohol or drug abuse patient.[facility] HospitalIn the event this information is protected by the Federal Confidentiality of Alcohol and Drug Abuse Patient Records regulations: The Federal rules restrict any use of the information to criminally investigate or prosecute any alcohol or drug abuse patient.[facility] HospitalIn the event this information is protected by the Federal Confidentiality of Alcohol and Drug Abuse Patient Records regulations: The Federal rules restrict any use of the information to criminally investigate or prosecute any alcohol or drug abuse patient.[facility] HospitalIn the event this information is protected by the Federal Confidentiality of Alcohol and Drug Abuse Patient Records regulations: The Federal rules restrict any use of the information to criminally investigate or prosecute any alcohol or drug abuse patient.[facility] HospitalIn the event this information is protected by the Federal Confidentiality of Alcohol and Drug Abuse Patient Records regulations: The Federal rules restrict any use of the information to criminally investigate or prosecute any alcohol or drug abuse patient.[facility] HospitalIn the event this information is protected by the Federal Confidentiality of Alcohol and Drug Abuse Patient Records regulations: The Federal rules restrict any use of the information to criminally investigate or prosecute any alcohol or drug abuse patient.[facility] HospitalIn the event this information is protected by the Federal Confidentiality of Alcohol and Drug Abuse Patient Records regulations: The Federal rules restrict any use of the information to criminally investigate or prosecute any alcohol or drug abuse patient.[facility] HospitalIn the event this information is protected by the Federal Confidentiality of Alcohol and Drug Abuse Patient Records regulations: The Federal rules restrict any use of the information to criminally investigate or prosecute any alcohol or drug abuse patient.[facility] HospitalIn the event this information is protected by the Federal Confidentiality of Alcohol and Drug Abuse Patient Records regulations: The Federal rules restrict any use of the information to criminally investigate or prosecute any alcohol or drug abuse patient.[facility] HospitalIn the event this information is protected by the Federal Confidentiality of Alcohol and Drug Abuse Patient Records regulations: The Federal rules restrict any use of the information to criminally investigate or prosecute any alcohol or drug abuse patient.[facility] HospitalIn the event this information is protected by the Federal Confidentiality of Alcohol and Drug Abuse Patient Records regulations: The Federal rules restrict any use of the information to criminally investigate or prosecute any alcohol or drug abuse patient.[facility] HospitalIn the event this information is protected by the Federal Confidentiality of Alcohol and Drug Abuse Patient Records regulations: The Federal rules restrict any use of the information to criminally investigate or prosecute any alcohol or drug abuse patient.[facility] HospitalIn the event this information is protected by the Federal Confidentiality of Alcohol and Drug Abuse Patient Records regulations: The Federal rules restrict any use of the information to criminally investigate or prosecute any alcohol or drug abuse patient.[facility] HospitalIn the event this information is protected by the Federal Confidentiality of Alcohol and Drug Abuse Patient Records regulations: The Federal rules restrict any use of the information to criminally investigate or prosecute any alcohol or drug abuse patient.[facility] HospitalIn the event this information is protected by the Federal Confidentiality of Alcohol and Drug Abuse Patient Records regulations: The Federal rules restrict any use of the information to criminally investigate or prosecute any alcohol or drug abuse patient.[facility] HospitalIn the event this information is protected by the Federal Confidentiality of Alcohol and Drug Abuse Patient Records regulations: The Federal rules restrict any use of the information to criminally investigate or prosecute any alcohol or drug abuse patient.[facility] HospitalIn the event this information is protected by the Federal Confidentiality of Alcohol and Drug Abuse Patient Records regulations: The Federal rules restrict any use of the information to criminally investigate or prosecute any alcohol or drug abuse patient.[facility] HospitalIn the event this information is protected by the Federal Confidentiality of Alcohol and Drug Abuse Patient Records regulations: The Federal rules restrict any use of the information to criminally investigate or prosecute any alcohol or drug abuse patient.[facility] HospitalIn the event this information is protected by the Federal Confidentiality of Alcohol and Drug Abuse Patient Records regulations: The Federal rules restrict any use of the information to criminally investigate or prosecute any alcohol or drug abuse patient.[facility] HospitalIn the event this information is protected by the Federal Confidentiality of Alcohol and Drug Abuse Patient Records regulations: The Federal rules restrict any use of the information to criminally investigate or prosecute any alcohol or drug abuse patient.[facility] HospitalIn the event this information is protected by the Federal Confidentiality of Alcohol and Drug Abuse Patient Records regulations: The Federal rules restrict any use of the information to criminally investigate or prosecute any alcohol or drug abuse patient.[facility] HospitalIn the event this information is protected by the Federal Confidentiality of Alcohol and Drug Abuse Patient Records regulations: The Federal rules restrict any use of the information to criminally investigate or prosecute any alcohol or drug abuse patient.[facility] HospitalIn the event this information is protected by the Federal Confidentiality of Alcohol and Drug Abuse Patient Records regulations: The Federal rules restrict any use of the information to criminally investigate or prosecute any alcohol or drug abuse patient.[facility] HospitalIn the event this information is protected by the Federal Confidentiality of Alcohol and Drug Abuse Patient Records regulations: The Federal rules restrict any use of the information to criminally investigate or prosecute any alcohol or drug abuse patient.[facility] HospitalIn the event this information is protected by the Federal Confidentiality of Alcohol and Drug Abuse Patient Records regulations: The Federal rules restrict any use of the information to criminally investigate or prosecute any alcohol or drug abuse patient.[facility] HospitalIn the event this information is protected by the Federal Confidentiality of Alcohol and Drug Abuse Patient Records regulations: The Federal rules restrict any use of the information to criminally investigate or prosecute any alcohol or drug abuse patient.[facility] HospitalIn the event this information is protected by the Federal Confidentiality of Alcohol and Drug Abuse Patient Records regulations: The Federal rules restrict any use of the information to criminally investigate or prosecute any alcohol or drug abuse patient.[facility] HospitalIn the event this information is protected by the Federal Confidentiality of Alcohol and Drug Abuse Patient Records regulations: The Federal rules restrict any use of the information to criminally investigate or prosecute any alcohol or drug abuse patient.[facility] HospitalIn the event this information is protected by the Federal Confidentiality of Alcohol and Drug Abuse Patient Records regulations: The Federal rules restrict any use of the information to criminally investigate or prosecute any alcohol or drug abuse patient.[facility] HospitalIn the event this information is protected by the Federal Confidentiality of Alcohol and Drug Abuse Patient Records regulations: The Federal rules restrict any use of the information to criminally investigate or prosecute any alcohol or drug abuse patient.[facility] HospitalIn the event this information is protected by the Federal Confidentiality of Alcohol and Drug Abuse Patient Records regulations: The Federal rules restrict any use of the information to criminally investigate or prosecute any alcohol or drug abuse patient.[facility] HospitalIn the event this information is protected by the Federal Confidentiality of Alcohol and Drug Abuse Patient Records regulations: The Federal rules restrict any use of the information to criminally investigate or prosecute any alcohol or drug abuse patient.[facility] HospitalIn the event this information is protected by the Federal Confidentiality of Alcohol and Drug Abuse Patient Records regulations: The Federal rules restrict any use of the information to criminally investigate or prosecute any alcohol or drug abuse patient.[facility] HospitalIn the event this information is protected by the Federal Confidentiality of Alcohol and Drug Abuse Patient Records regulations: The Federal rules restrict any use of the information to criminally investigate or prosecute any alcohol or drug abuse patient.[facility] HospitalIn the event this information is protected by the Federal Confidentiality of Alcohol and Drug Abuse Patient Records regulations: The Federal rules restrict any use of the information to criminally investigate or prosecute any alcohol or drug abuse patient.[facility] HospitalIn the event this information is protected by the Federal Confidentiality of Alcohol and Drug Abuse Patient Records regulations: The Federal rules restrict any use of the information to criminally investigate or prosecute any alcohol or drug abuse patient.[facility] HospitalIn the event this information is protected by the Federal Confidentiality of Alcohol and Drug Abuse Patient Records regulations: The Federal rules restrict any use of the information to criminally investigate or prosecute any alcohol or drug abuse patient.[facility] HospitalIn the event this information is protected by the Federal Confidentiality of Alcohol and Drug Abuse Patient Records regulations: The Federal rules restrict any use of the information to criminally investigate or prosecute any alcohol or drug abuse patient.[facility] HospitalIn the event this information is protected by the Federal Confidentiality of Alcohol and Drug Abuse Patient Records regulations: The Federal rules restrict any use of the information to criminally investigate or prosecute any alcohol or drug abuse patient.[facility] HospitalIn the event this information is protected by the Federal Confidentiality of Alcohol and Drug Abuse Patient Records regulations: The Federal rules restrict any use of the information to criminally investigate or prosecute any alcohol or drug abuse patient.[facility] HospitalIn the event this information is protected by the Federal Confidentiality of Alcohol and Drug Abuse Patient Records regulations: The Federal rules restrict any use of the information to criminally investigate or prosecute any alcohol or drug abuse patient.[facility] HospitalIn the event this information is protected by the Federal Confidentiality of Alcohol and Drug Abuse Patient Records regulations: The Federal rules restrict any use of the information to criminally investigate or prosecute any alcohol or drug abuse patient.[facility] HospitalIn the event this information is protected by the Federal Confidentiality of Alcohol and Drug Abuse Patient Records regulations: The Federal rules restrict any use of the information to criminally investigate or prosecute any alcohol or drug abuse patient.[facility] HospitalIn the event this information is protected by the Federal Confidentiality of Alcohol and Drug Abuse Patient Records regulations: The Federal rules restrict any use of the information to criminally investigate or prosecute any alcohol or drug abuse patient.[facility] HospitalIn the event this information is protected by the Federal Confidentiality of Alcohol and Drug Abuse Patient Records regulations: The Federal rules restrict any use of the information to criminally investigate or prosecute any alcohol or drug abuse patient.[facility] HospitalIn the event this information is protected by the Federal Confidentiality of Alcohol and Drug Abuse Patient Records regulations: The Federal rules restrict any use of the information to criminally investigate or prosecute any alcohol or drug abuse patient.[facility] HospitalIn the event this information is protected by the Federal Confidentiality of Alcohol and Drug Abuse Patient Records regulations: The Federal rules restrict any use of the information to criminally investigate or prosecute any alcohol or drug abuse patient.[facility] HospitalIn the event this information is protected by the Federal Confidentiality of Alcohol and Drug Abuse Patient Records regulations: The Federal rules restrict any use of the information to criminally investigate or prosecute any alcohol or drug abuse patient.[facility] HospitalIn the event this information is protected by the Federal Confidentiality of Alcohol and Drug Abuse Patient Records regulations: The Federal rules restrict any use of the information to criminally investigate or prosecute any alcohol or drug abuse patient.[facility] HospitalIn the event this information is protected by the Federal Confidentiality of Alcohol and Drug Abuse Patient Records regulations: The Federal rules restrict any use of the information to criminally investigate or prosecute any alcohol or drug abuse patient.[facility] HospitalIn the event this information is protected by the Federal Confidentiality of Alcohol and Drug Abuse Patient Records regulations: The Federal rules restrict any use of the information to criminally investigate or prosecute any alcohol or drug abuse patient.[facility] HospitalIn the event this information is protected by the Federal Confidentiality of Alcohol and Drug Abuse Patient Records regulations: The Federal rules restrict any use of the information to criminally investigate or prosecute any alcohol or drug abuse patient.[facility] HospitalIn the event this information is protected by the Federal Confidentiality of Alcohol and Drug Abuse Patient Records regulations: The Federal rules restrict any use of the information to criminally investigate or prosecute any alcohol or drug abuse patient.[facility] HospitalIn the event this information is protected by the Federal Confidentiality of Alcohol and Drug Abuse Patient Records regulations: The Federal rules restrict any use of the information to criminally investigate or prosecute any alcohol or drug abuse patient.[facility] HospitalIn the event this information is protected by the Federal Confidentiality of Alcohol and Drug Abuse Patient Records regulations: The Federal rules restrict any use of the information to criminally investigate or prosecute any alcohol or drug abuse patient.[facility] HospitalIn the event this information is protected by the Federal Confidentiality of Alcohol and Drug Abuse Patient Records regulations: The Federal rules restrict any use of the information to criminally investigate or prosecute any alcohol or drug abuse patient.[facility] HospitalIn the event this information is protected by the Federal Confidentiality of Alcohol and Drug Abuse Patient Records regulations: The Federal rules restrict any use of the information to criminally investigate or prosecute any alcohol or drug abuse patient.[facility] HospitalIn the event this information is protected by the Federal Confidentiality of Alcohol and Drug Abuse Patient Records regulations: The Federal rules restrict any use of the information to criminally investigate or prosecute any alcohol or drug abuse patient.[facility] HospitalIn the event this information is protected by the Federal Confidentiality of Alcohol and Drug Abuse Patient Records regulations: The Federal rules restrict any use of the information to criminally investigate or prosecute any alcohol or drug abuse patient.[facility] HospitalIn the event this information is protected by the Federal Confidentiality of Alcohol and Drug Abuse Patient Records regulations: The Federal rules restrict any use of the information to criminally investigate or prosecute any alcohol or drug abuse patient.[facility] HospitalIn the event this information is protected by the Federal Confidentiality of Alcohol and Drug Abuse Patient Records regulations: The Federal rules restrict any use of the information to criminally investigate or prosecute any alcohol or drug abuse patient.[facility] HospitalIn the event this information is protected by the Federal Confidentiality of Alcohol and Drug Abuse Patient Records regulations: The Federal rules restrict any use of the information to criminally investigate or prosecute any alcohol or drug abuse patient.[facility] HospitalIn the event this information is protected by the Federal Confidentiality of Alcohol and Drug Abuse Patient Records regulations: The Federal rules restrict any use of the information to criminally investigate or prosecute any alcohol or drug abuse patient.[facility] HospitalIn the event this information is protected by the Federal Confidentiality of Alcohol and Drug Abuse Patient Records regulations: The Federal rules restrict any use of the information to criminally investigate or prosecute any alcohol or drug abuse patient.[facility] HospitalIn the event this information is protected by the Federal Confidentiality of Alcohol and Drug Abuse Patient Records regulations: The Federal rules restrict any use of the information to criminally investigate or prosecute any alcohol or drug abuse patient.[facility] HospitalIn the event this information is protected by the Federal Confidentiality of Alcohol and Drug Abuse Patient Records regulations: The Federal rules restrict any use of the information to criminally investigate or prosecute any alcohol or drug abuse patient.[facility] HospitalIn the event this information is protected by the Federal Confidentiality of Alcohol and Drug Abuse Patient Records regulations: The Federal rules restrict any use of the information to criminally investigate or prosecute any alcohol or drug abuse patient.[facility] HospitalIn the event this information is protected by the Federal Confidentiality of Alcohol and Drug Abuse Patient Records regulations: The Federal rules restrict any use of the information to criminally investigate or prosecute any alcohol or drug abuse patient.[facility] HospitalIn the event this information is protected by the Federal Confidentiality of Alcohol and Drug Abuse Patient Records regulations: The Federal rules restrict any use of the information to criminally investigate or prosecute any alcohol or drug abuse patient.[facility] HospitalIn the event this information is protected by the Federal Confidentiality of Alcohol and Drug Abuse Patient Records regulations: The Federal rules restrict any use of the information to criminally investigate or prosecute any alcohol or drug abuse patient.[facility] HospitalIn the event this information is protected by the Federal Confidentiality of Alcohol and Drug Abuse Patient Records regulations: The Federal rules restrict any use of the information to criminally investigate or prosecute any alcohol or drug abuse patient.[facility] HospitalIn the event this information is protected by the Federal Confidentiality of Alcohol and Drug Abuse Patient Records regulations: The Federal rules restrict any use of the information to criminally investigate or prosecute any alcohol or drug abuse patient.[facility] HospitalIn the event this information is protected by the Federal Confidentiality of Alcohol and Drug Abuse Patient Records regulations: The Federal rules restrict any use of the information to criminally investigate or prosecute any alcohol or drug abuse patient.[facility] HospitalIn the event this information is protected by the Federal Confidentiality of Alcohol and Drug Abuse Patient Records regulations: The Federal rules restrict any use of the information to criminally investigate or prosecute any alcohol or drug abuse patient.[facility] HospitalIn the event this information is protected by the Federal Confidentiality of Alcohol and Drug Abuse Patient Records regulations: The Federal rules restrict any use of the information to criminally investigate or prosecute any alcohol or drug abuse patient.[facility] HospitalIn the event this information is protected by the Federal Confidentiality of Alcohol and Drug Abuse Patient Records regulations: The Federal rules restrict any use of the information to criminally investigate or prosecute any alcohol or drug abuse patient.[facility] HospitalIn the event this information is protected by the Federal Confidentiality of Alcohol and Drug Abuse Patient Records regulations: The Federal rules restrict any use of the information to criminally investigate or prosecute any alcohol or drug abuse patient.[facility] HospitalIn the event this information is protected by the Federal Confidentiality of Alcohol and Drug Abuse Patient Records regulations: The Federal rules restrict any use of the information to criminally investigate or prosecute any alcohol or drug abuse patient.[facility] HospitalIn the event this information is protected by the Federal Confidentiality of Alcohol and Drug Abuse Patient Records regulations: The Federal rules restrict any use of the information to criminally investigate or prosecute any alcohol or drug abuse patient.[facility] HospitalIn the event this information is protected by the Federal Confidentiality of Alcohol and Drug Abuse Patient Records regulations: The Federal rules restrict any use of the information to criminally investigate or prosecute any alcohol or drug abuse patient.[facility] HospitalIn the event this information is protected by the Federal Confidentiality of Alcohol and Drug Abuse Patient Records regulations: The Federal rules restrict any use of the information to criminally investigate or prosecute any alcohol or drug abuse patient.[facility] HospitalIn the event this information is protected by the Federal Confidentiality of Alcohol and Drug Abuse Patient Records regulations: The Federal rules restrict any use of the information to criminally investigate or prosecute any alcohol or drug abuse patient.[facility] HospitalIn the event this information is protected by the Federal Confidentiality of Alcohol and Drug Abuse Patient Records regulations: The Federal rules restrict any use of the information to criminally investigate or prosecute any alcohol or drug abuse patient.[facility] HospitalIn the event this information is protected by the Federal Confidentiality of Alcohol and Drug Abuse Patient Records regulations: The Federal rules restrict any use of the information to criminally investigate or prosecute any alcohol or drug abuse patient.[facility] HospitalIn the event this information is protected by the Federal Confidentiality of Alcohol and Drug Abuse Patient Records regulations: The Federal rules restrict any use of the information to criminally investigate or prosecute any alcohol or drug abuse patient.[facility] HospitalIn the event this information is protected by the Federal Confidentiality of Alcohol and Drug Abuse Patient Records regulations: The Federal rules restrict any use of the information to criminally investigate or prosecute any alcohol or drug abuse patient.[facility] HospitalIn the event this information is protected by the Federal Confidentiality of Alcohol and Drug Abuse Patient Records regulations: The Federal rules restrict any use of the information to criminally investigate or prosecute any alcohol or drug abuse patient.[facility] HospitalIn the event this information is protected by the Federal Confidentiality of Alcohol and Drug Abuse Patient Records regulations: The Federal rules restrict any use of the information to criminally investigate or prosecute any alcohol or drug abuse patient.[facility] HospitalIn the event this information is protected by the Federal Confidentiality of Alcohol and Drug Abuse Patient Records regulations: The Federal rules restrict any use of the information to criminally investigate or prosecute any alcohol or drug abuse patient.[facility] HospitalIn the event this information is protected by the Federal Confidentiality of Alcohol and Drug Abuse Patient Records regulations: The Federal rules restrict any use of the information to criminally investigate or prosecute any alcohol or drug abuse patient.[facility] HospitalIn the event this information is protected by the Federal Confidentiality of Alcohol and Drug Abuse Patient Records regulations: The Federal rules restrict any use of the information to criminally investigate or prosecute any alcohol or drug abuse patient.[facility] HospitalIn the event this information is protected by the Federal Confidentiality of Alcohol and Drug Abuse Patient Records regulations: The Federal rules restrict any use of the information to criminally investigate or prosecute any alcohol or drug abuse patient.[facility] HospitalIn the event this information is protected by the Federal Confidentiality of Alcohol and Drug Abuse Patient Records regulations: The Federal rules restrict any use of the information to criminally investigate or prosecute any alcohol or drug abuse patient.[facility] HospitalIn the event this information is protected by the Federal Confidentiality of Alcohol and Drug Abuse Patient Records regulations: The Federal rules restrict any use of the information to criminally investigate or prosecute any alcohol or drug abuse patient.[facility] HospitalIn the event this information is protected by the Federal Confidentiality of Alcohol and Drug Abuse Patient Records regulations: The Federal rules restrict any use of the information to criminally investigate or prosecute any alcohol or drug abuse patient.[facility] HospitalIn the event this information is protected by the Federal Confidentiality of Alcohol and Drug Abuse Patient Records regulations: The Federal rules restrict any use of the information to criminally investigate or prosecute any alcohol or drug abuse patient.[facility] Reason for Visit (unrecogniz ed section and content) Reason Comments Physical Therapy Specialty Diagnoses / Procedures Referred By Contac t Referred To Contact Physical Therapy / PHYSICAL THERAPY Diagnoses Left hip pain [M25.552] Procedures NEW RS PT ORTH Shanita Pond PA-C [address] [place] [address] Phone: tel: fax: Mary Ann Oscar PT Referral ID Status Reason Start Date Expiration Date V isits Requested Visits Authorized [id number] Authorized 09/02/2024 09/01/2025 20 20 Reason Comments PT Eval Specialty Diagnoses / Procedures Referred By Contac t Referred To Contact Physical Therapy / PHYSICAL THERAPY Diagnoses Left hip pain [M25.552] Procedures NEW RS PT ORTH Shanita Pond PA-C [address] [place] [address] Mary Ann Oscar PT Reason Comments PT Discharge Specialty Diagnoses / Procedures Referred By Contac t Referred To Contact PHYSICAL THERAPY Diagnoses Chronic bilateral low back pain with sciatica, sciatica laterality unspecified Procedures CONSULT TO PHYSICAL THERAPY PHYSICAL THERAPY EVALUATION HIGH COMPLEX 45 MINS Shanita Green PA-C [address] [place] [address] Jeancarlos Fraser PT Referral ID Status Reason Start Date Expiration Date Visits Requested Visits Authorized [id number] Authorized Auto-Generat ed Referral 05/14/2023 09/01/2023 20 [...] REAL-TIME IMAGE COMPLETE Shanita Green PA-C [address] [place] [address] [facility] Referral ID Status Reason Start Date Expiration Date V isits Requested Visits Authorized [id number] Closed Auto-Generate d Referral 03/23/2022 04/22/2023 1 [...] Reason Comments Physical Reason Onset Date Comments [facility] 11/12/2022 Telephonic outre ach Reason Comments Weight Loss Reason Onset Date Comments Refill Request 12/05/2022 Reason Onset Date Comments [facility] 12/07/2022 Telephonic outre ach Reason Comments Referral Information Reason Onset Date Comments M 01/03/2023 Telephonic outre ach Reason Comments Multiple Concerns Headache-persistent with high BP at home; Sleep-difficulty to fall asleep/stay asleep; runny nose Reason Comments Recheck Blood pressure Reason Comments Outside Endocrinology Reason Onset Date Comments [facility] Telephonic Outreach 02/28/2023 Reason Onset Date Comments [...] NEW HIGH MDM 60-74 MINUTES Alex Brown, ALAN.MERCHANDISE EXAMINER [address] [place] [address] Referral ID Status Reason Start Date Expiration Date Visits Requested Visits Authorized [id number] Pending Review PCP Requested Referral 06/04/2023 06/03/2024 1 1 Reason Onset Date Comments [facility] Telephonic Outreach 06/21/2023 Reason Onset Date Comments Refill Request 06/27/2023 Specialty Diagnoses / Procedures Referred By Contac t Referred To Contact US IMAGING Diagnoses Weight loss Ex-smoker Procedures US ABDOMEN COMPLETE US ABDOMINAL REAL TIME W/IMAGE DOCUMENTATION Rito Camp MD [address] [place] [address] [place] [address] Referral ID Status Reason Start Date Expiration Date V isits Requested Visits Authorized [id number] Closed Auto-Generate d Referral 11/19/2022 12/19/2023 [address] Specialty Diagnoses / Procedures Referred By Contac t Referred To Contact CT IMAGING Diagnoses New onset of headaches after age 50 Procedures CTA HEAD W IVCON CT ANGIOGRAPHY HEAD W/CONTRAST/NONCONTRAST Alex Brown APRN.MERCHANDISE EXAMINER [address] [place] [address] [place] [address] Referral ID Status Reason Start Date Expiration Date V isits Requested Visits Authorized [id number] Closed Auto-Generate d Referral 02/15/2023 03/16/2024 1 1 Specialty Diagnoses / Procedures Referred By Contac t Referred To Contact CT IMAGING Diagnoses Ex-smoker Weight loss, unintentional Procedures CT ABD/PEL W IVCON CT ABD & PELVIS W/CONTRAST Rito Camp MD [address] [place], [place] [id number] [place] [address] Referral ID Status Reason Start Date Expiration Date V isits Requested Visits Authorized [id number] Closed Auto-Generate d Referral 01/21/2023 01/03/2024 2 2 Specialty Diagnoses / Procedures Referred By Contac t Referred To Contact CT IMAGING Diagnoses Weight loss Ex-smoker Lung nodules Procedures CT CHEST WO IVCON DIAGNOSTIC COMPUTED TOMOGRAPHY THORAX W/O CNTRST Rito Camp MD [address] [place] [address] [place] [address] Referral ID Status Reason Start Date Expiration Date V isits Requested Visits Authorized [id number] Closed Auto-Generate d Referral 11/19/2022 12/19/2023 1 1 Reason Onset Date Comments [facility] Telephonic Outreach 07/22/2023 Reason Onset Date Comments [facility] 08/22/2023 Telephonic Outre ach Reason Onset Date Comments Refill Request 10/07/2023 Changing her Pha rmacy Reason Comments right shoulder pain X 2 weeks Reason Onset Date Comments [facility] 10/21/2023 Telephonic Outre ach Reason Onset Date Comments [facility] 10/22/2023 Telephonic Outre ach Reason Comments Patient Update FYI-No Action Needed Reason Onset Date Comments [facility] 11/18/2023 Telephonic Outre ach Reason Comments Results Disc/Report Reason Onset Date Comments [facility] 12/16/2023 Telephonic Outre ach Reason Onset Date Comments [facility] 12/17/2023 Telephonic Outre ach Reason Comments Chest Congestion SOB, cough, non prod uctive, sneezing, chest tightness x 3 days Reason Comments Cough Chest congestion x 4 days Reason Comments ext document CT report Reason Onset Date Comments [facility] 01/14/2024 Telephonic Outre ach Reason Onset Date Comments [facility] 01/15/2024 Telephonic Outre ach Reason Onset Date Comments [facility] 02/12/2024 Telephonic Outre ach Reason Onset Date Comments [facility] 03/11/2024 Telephonic Outre ach Reason Onset Date Comments Refill Request 03/16/2024 Reason Comments Fall Reason Comments Follow Up Left shoulder pain a fter fall on 03/17 Reason Onset Date Comments [facility] 04/06/2024 Telephonic Outre ach Reason Onset Date Comments [facility] 04/07/2024 Telephonic Outre ach Reason Comments Fall Fell 5 days ago- rig ht rib pain Specialty Diagnoses / Procedures Referred By Castillo t Referred To Contact MR IMAGING Diagnoses Fall, initial encounter Acute pain of left shoulder Procedures MRI SHOULDER WO/W IVCON LEFT MRI ANY JT UPPER EXTREMITY W/O & W/CONTR MATRL Alex Brown, MARKETER.MERCHANDISE EXAMINER [address] [place] [address] Mr Imaging [facility] Referral ID Status Reason Start Date Expiration Date V isits Requested Visits Authorized [id number] Closed Auto-Generate d Referral 03/26/2024 04/25/2025 1 1 Reason Onset Date Comments Refill Request 04/27/2024 Reason Onset Date Comments [facility] 05/06/2024 Telephonic Outre ach Reason Onset Date Comments [facility] 05/07/2024 Telephonic Outre ach Reason Comments Urinary Problem Urgency, pain x 3 da ys Reason Comments UTI Reason Comments Cough Chest congestion, he aviness in chest, headache, SOB, sore throat x 3 days Reason Comments Radiology XR Specialty Diagnoses / Procedures Referred By Castillo t Referred To Contact Radiology / [facility] Diagnoses Pneumonia due to COVID-19 virus Pneumonia due to COVID-19 virus [U07.1, J12.89] Procedures RADIOLOGIC EXAM CHEST 2 VIEWS XR CHEST Darvin Gold III, MD NO FORWARDING [address] [facility] [address] [place] [address] Referral ID Status Reason Start Date Expiration Date Visits Re quested Visits Authorized [id number] Closed 07/23/2020 09/01/2020 1 1 Reason Comments Medication Problem Reason Onset Date Comments [facility] 06/17/2024 Telephonic Outre ach Reason Onset Date Comments [facility] 06/18/2024 Telephonic Outre ach Reason Onset Date Comments [facility] 07/16/2024 Telephonic Outre ach Reason Comments Outside Pulmonary Reason Comments Cough X 3 days Reason Comments side pain Left side pain X2 we eks Reason Onset Date Comments [facility] 08/12/2024 Telephonic Outre ach Reason Onset Date Comments [facility] 08/13/2024 Telephonic Outre ach Reason Comments fax [...] Care Teams (unrecognized sec tion and content) Bobbin Inspector Relationship Specialty Start Date End Date Rito Camp MD [address] [place] [address] PCP - General Family Practice 01/27/21 Kami Hunter engineer of system developmentFitter'S Assistant 04/27/21 Suleman Gustafson [address] [place] [address] Systems Librarian 04/27/21 Bobbin Inspector Relationship Specialty Start Date End Date Rito Camp MD [address] [place] [address] PCP - General Family Practice 01/27/21 Kami Hunter engineer of system developmentFitter'S Assistant 04/27/21 Suleman Gustafson [address] [place] [address] Systems Librarian 04/27/21 Bobbin Inspector Relationship Specialty Start Date End Date Rito Camp MD [address] [place] [address] PCP - General Family Practice 01/27/21 Kami Hunter engineer of system developmentFitter'S Assistant 04/27/21 Suleman Gustafson [address] [facility] [place] [address] Systems Librarian 04/27/21 Bobbin Inspector Relationship Specialty Start Date End Date Rito Camp MD [address] [place] [address] PCP - General Family Practice 01/27/21 Kami Hunter engineer of system developmentFitter'S Assistant 04/27/21 Suleman Gustafson [address] [place] [address] Systems Librarian 04/27/21 Bobbin Inspector Relationship Specialty Start Date End Date Rito Camp MD [address] [facility] [place] [address] PCP - General Family Practice 01/27/21 Kami Hunter, engineer of system developmentFitter'S Assistant 04/27/21 Suleman Gustafson [address] [place] [address] Systems Librarian 04/27/21 Bobbin Inspector Relationship Specialty Start Date End Date Rito Camp MD [address] [facility] [place] [address] PCP - General Family Practice 01/27/21 Kami Hunter RN [address] [place], [place] [id number] Fitter'S Assistant 04/27/21 Suleman Gustafson [address] [place] [address] Systems Librarian 04/27/21 Bobbin Inspector Relationship Specialty Start Date End Date Rito Camp MD [address] [facility] [place] [address] PCP - General Family Practice 01/27/21 Kami Hunter RN [address] [place] [address] Fitter'S Assistant 04/27/21 Suleman Gustafson [address] [place] [address] Systems Librarian 04/27/21 Bobbin Inspector Relationship Specialty Start Date End Date Rito Camp MD [address] [facility] [place] [address] PCP - General Family Practice 01/27/21 Kami Hunter, ELDER [address] [place] [address] Fitter'S Assistant 04/27/21 Suleman Gustafson [address] [facility] [place] [address] Systems Librarian 04/27/21 Bobbin Inspector Relationship Specialty Start Date End Date Rito Camp MD [address] [place] [address] PCP - General Family Practice 01/27/21 Kami Hunter, ELDER [address] [place] [address] Fitter'S Assistant 04/27/21 Suleman Gustafson [address] [facility] [place] [address] Systems Librarian 04/27/21 Bobbin Inspector Relationship Specialty Start Date End Date Rito Camp MD [address] [facility] [place] [address] PCP - General Family Practice 01/27/21 Kami Hunter RN [address] [place] [address] Fitter'S Assistant 04/27/21 Suleman Gustafson [address] [facility] [place] [address] Systems Librarian 04/27/21 Bobbin Inspector Relationship Specialty Start Date End Date Rito Camp MD [address] [place] [address] PCP - General Family Practice 01/27/21 Kami Hunter, ELDER [address] [place] [address] Fitter'S Assistant 04/27/21 Suleman Gustafson [address] [place] [address] Systems Librarian 04/27/21 Bobbin Inspector Relationship Specialty Start Date End Date Rito Camp MD [address] [facility] [place] [address] PCP - General Family Practice 01/27/21 Kami Hunter, RN [address] [place] [address] Fitter'S Assistant 04/27/21 Suleman Gusatfson [address] [place] [address] Systems Librarian 04/27/21 Bobbin Inspector Relationship Specialty Start Date End Date Rito Camp MD [address] [facility] [place] [address] PCP - General Family Practice 01/27/21 Kami Hunter, RN [address] [place] [address] Fitter'S Assistant 04/27/21 Suleman Gustafson [address] [place] [address] Systems Librarian 04/27/21 Bobbin Inspector Relationship Specialty Start Date End Date Rito Camp MD [address] [facility] [place] [address] PCP - General Family Practice 01/27/21 Kami Hunter, RN [address] [place] [address] Fitter'S Assistant 04/27/21 Suleman Gustafson [address] [place] [address] Systems Librarian 04/27/21 Bobbin Inspector Relationship Specialty Start Date End Date Rito Camp MD [address] [facility] [place] [address] PCP - General Family Practice 01/27/21 Kami Hunter, ELDER [address] [place] [address] Fitter'S Assistant 04/27/21 Suleman Gustafson [address] [facility] [place] [address] Systems Librarian 04/27/21 Bobbin Inspector Relationship Specialty Start Date End Date Rito Camp MD [address] [facility] [place] [address] PCP - General Family Practice 01/27/21 Kami Hunter RN [address] [place] [address] Fitter'S Assistant 04/27/21 Suleman Gustafson [address] [facility] [place] [address] Systems Librarian 04/27/21 Bobbin Inspector Relationship Specialty Start Date End Date Rito Camp MD [address] [facility] [place] [address] PCP - General Family Practice 01/27/21 Kami Hunter RN [address] [place] [address] Fitter'S Assistant 04/27/21 Suleman Gustafson [address] [facility] [address] Systems Librarian 04/27/21 Bobbin Inspector Relationship Specialty Start Date End Date Rito Camp MD [address] [facility] [place] [address] PCP - General Family Medicine 01/27/21 Kami Hunter RN [address] [place] [address] Fitter'S Assistant 04/27/21 Suleman Gustafson [address] [place] [address] Systems Librarian 04/27/21 Bobbin Inspector Relationship Specialty Start Date End Date Rito Camp MD [address] [facility] [place] [address] PCP - General Family Medicine 01/27/21 Kami Hunter, ELDER [address] [place] [address] Fitter'S Assistant 04/27/21 Suleman Gustafson [address] [facility] [place] [address] Systems Librarian 04/27/21 Bobbin Inspector Relationship Specialty Start Date End Date Rito Camp MD [address] [facility] [place] [address] PCP - General Family Medicine 01/27/21 Kami Hunter, ELDER [address] [place] [address] Fitter'S Assistant 04/27/21 Suleman Gustafson [address] [place] [address] Systems Librarian 04/27/21 Bobbin Inspector Relationship Specialty Start Date End Date Rito Camp MD [address] [facility] [place] [address] PCP - General Family Medicine 01/27/21 Kami Hunter, RN [address] [place] [address] Fitter'S Assistant 04/27/21 Suleman Gustafson [address] [place] [address] Systems Librarian 04/27/21 Bobbin Inspector Relationship Specialty Start Date End Date Rito Camp MD [address] [facility] [place] [address] PCP - General Family Medicine 01/27/21 Kami Hunter RN [address] [place] [address] Fitter'S Assistant 04/27/21 Suleman Gustafson [address] [place] [address] Systems Librarian 04/27/21 Bobbin Inspector Relationship Specialty Start Date End Date Rito Camp MD [address] [place] [address] PCP - General Family Medicine 01/27/21 Kami Hunter RN [address] [place] [address] Fitter'S Assistant 04/27/21 Suleman Gustafson [address] [place] [address] Systems Librarian 04/27/21 Bobbin Inspector Relationship Specialty Start Date End Date Rito Camp MD [address] [place] [address] PCP - General Family Medicine 01/27/21 Kami Hunter RN [address] [place] [address] Fitter'S Assistant 04/27/21 Suleman Gustafson [address] [place] [address] Systems Librarian 04/27/21 Bobbin Inspector Relationship Specialty Start Date End Date Rito Camp MD [address] [place] [address] PCP - General Family Medicine 01/27/21 Kami Hunter, ELDER [address] [place] [address] Fitter'S Assistant 04/27/21 Suleman Gustafson [address] [place] [address] Systems Librarian 04/27/21 Bobbin Inspector Relationship Specialty Start Date End Date Rito Camp MD [address] [facility] [place] [address] PCP - General Family Medicine 01/27/21 Kami Hunter RN [address] [place] [address] Fitter'S Assistant 04/27/21 Suleman Gustafson [address] [place] [address] Systems Librarian 04/27/21 Bobbin Inspector Relationship Specialty Start Date End Date Rito Camp MD [address] [facility] [place] [address] PCP - General Family Medicine 01/27/21 Kami Hunter RN [address] [place] [address] Fitter'S Assistant 04/27/21 Suleman Gustafson [address] [place] [address] Systems Librarian 04/27/21 Bobbin Inspector Relationship Specialty Start Date End Date Rito Camp MD [address] [facility] [place] [address] PCP - General Family Medicine 01/27/21 Suleman Gustafson [address] [place] [address] Systems Librarian 04/27/21 Ruth Denton, engineer of system developmentFitter'S Assistant 09/26/22 Bobbin Inspector Relationship Specialty Start Date End Date Rito Camp MD [address] [facility] [place] [address] PCP - General Family Medicine 01/27/21 Suleman Gustafson [address] [facility] [place] [address] Systems Librarian 04/27/21 Ruth Denton, engineer of system developmentFitter'S Assistant 09/26/22 Bobbin Inspector Relationship Specialty Start Date End Date Rito Camp MD [address] [place] [address] PCP - General Family Medicine 01/27/21 Suleman Gustafson [address] [facility] [place] [address] Systems Librarian 04/27/21 Ruth Denton, engineer of system developmentFitter'S Assistant 09/26/22 Bobbin Inspector Relationship Specialty Start Date End Date Rito Camp MD [address] [place] [address] PCP - General Family Medicine 01/27/21 Suleman Gustafson [address] [place] [address] Systems Librarian 04/27/21 Ruth Denton, engineer of system developmentFitter'S Assistant 09/26/22 Bobbin Inspector Relationship Specialty Start Date End Date Rito Camp MD [address] [place] [address] PCP - General Family Medicine 01/27/21 Suleman Gustafson [address] [place] [address] Systems Librarian 04/27/21 Ruth Denton, engineer of system developmentFitter'S Assistant 09/26/22 Bobbin Inspector Relationship Specialty Start Date End Date Rito Camp MD [address] [facility] [place] [address] PCP - General Family Medicine 01/27/21 Suleman Gustafson [address] [place] [place] [address] Systems Librarian 04/27/21 Ruth Denton, engineer of system developmentFitter'S Assistant 09/26/22 Bobbin Inspector Relationship Specialty Start Date End Date Rito Camp MD [address] [facility] [place] [address] PCP - General Family Medicine 01/27/21 Suleman Gustafson [address] [place] [address] Systems Librarian 04/27/21 Ruth Denton, engineer of system developmentFitter'S Assistant 09/26/22 Bobbin Inspector Relationship Specialty Start Date End Date Rito Camp MD [address] [facility] [place] [address] PCP - General Family Medicine 01/27/21 Suleman Gustafson [address] [place] [address] Systems Librarian 04/27/21 Ruth Denton, engineer of system developmentFitter'S Assistant 09/26/22 Bobbin Inspector Relationship Specialty Start Date End Date Rito Camp MD [address] [place] [address] PCP - General Family Medicine 01/27/21 Suleman Gustafson [address] [place] [address] Systems Librarian 04/27/21 Kerrie Damian, ELDER [address] [place] [address] Fitter'S Assistant 02/04/23 Bobbin Inspector Relationship Specialty Start Date End Date Rito Camp MD [address] [facility] [place] [address] PCP - General Family Medicine 01/27/21 Suleman Gustafson [address] [place] [address] Systems Librarian 04/27/21 Kerrie Damian RN [address] [place] [address] Fitter'S Assistant 02/04/23 Bobbin Inspector Relationship Specialty Start Date End Date Rito Camp MD [address] [facility] [place] [address] PCP - General Family Medicine 01/27/21 Suleman Gustafson [address] [place] [address] Systems Librarian 04/27/21 Kerrie Damian RN [address] [place] [address] Fitter'S Assistant 02/04/23 Bobbin Inspector Relationship Specialty Start Date End Date Rito Camp MD [address] [facility] [place] [address] PCP - General Family Medicine 01/27/21 Suleman Gustafson [address] [place] [address] Systems Librarian 04/27/21 Kerrie Damian, ELDER [address] [place] [address] Fitter'S Assistant 02/04/23 Bobbin Inspector Relationship Specialty Start Date End Date Rito Camp MD [address] [facility] [place] [address] PCP - General Family Medicine 01/27/21 Suleman Gustafson [address] [place] [address] Systems Librarian 04/27/21 Kerrie Damian, ELDER [address] [place] [address] Fitter'S Assistant 02/04/23 Bobbin Inspector Relationship Specialty Start Date End Date Rito Camp MD [address] [facility] [place] [address] PCP - General Family Medicine 01/27/21 Suleman Gustafson [address] [place] [address] Systems Librarian 04/27/21 Kerrie Damian RN [address] [place] [address] Fitter'S Assistant 02/04/23 Bobbin Inspector Relationship Specialty Start Date End Date Rito Camp MD [address] [facility] [place] [address] PCP - General Family Medicine 01/27/21 Suleman Gustafson [address] [place] [address] Systems Librarian 04/27/21 Kerrie Damian, RN [address] [place] [address] Fitter'S Assistant 02/04/23 Bobbin Inspector Relationship Specialty Start Date End Date Rito Camp MD [address] [facility] [place] [address] PCP - General Family Medicine 01/27/21 Suleman Gustafson [address] [place] [address] Systems Librarian 04/27/21 Kerrie Damian, ELDER [address] [place] [address] Fitter'S Assistant 02/04/23 Bobbin Inspector Relationship Specialty Start Date End Date Rito Camp MD [address] [place], [place] [address] PCP - General Family Medicine 01/27/21 Suleman Gustafson [address] [place] [address] Systems Librarian 04/27/21 Kerrie Damian RN [address] [place] [address] Fitter'S Assistant 02/04/23 Team Status: Active Member Role Status Dates Dr. Darvin Gold III, MD Family Provider Active Dr. Rito Camp MD Primary Care Provider Active Team Status: Inactive Member Role Status Dates Dr. Rito Camp MD Primary Care Provider, Referri ng Provider Active Sierra Dee HOLTER TECHNICIAN, HOLTER TECHNICIAN-C Attending Provider Active Team Status: Inactive Member [...] Dr. Jazz Collins MD Other Provider Active Bobbin Inspector Relationship Specialty Start Date End Date Rito Camp MD [address] [place] [address] PCP - General Family Medicine 01/27/21 Suleman Gustafson [address] [facility] [address] Systems Librarian 04/27/21 Kerrie Damian RN [address] [place], [place] [address] Fitter'S Assistant 02/04/23 Bobbin Inspector Relationship Specialty Start Date End Date Rito Camp MD [address] [place] [address] PCP - General Family Medicine 01/27/21 Suleman Gustafson [address] [place] [address] Systems Librarian 04/27/21 Kerrie Damian, ELDER [address] [place], [place] [address] Fitter'S Assistant 02/04/23 Bobbin Inspector Relationship Specialty Start Date End Date Rito Camp MD [address] [facility] [place] [address] PCP - General Family Medicine 01/27/21 Suleman Gustafson [address] [place] [address] Systems Librarian 04/27/21 Kerrie Damian, RN [address] [place] [address] Fitter'S Assistant 02/04/23 Bobbin Inspector Relationship Specialty Start Date End Date Rito Camp MD [address] [facility] [place] [address] PCP - General Family Medicine 01/27/21 Suleman Gustafson [address] [facility] [place] [address] Systems Librarian 04/27/21 Kerrie Damian, ELDER [address] [place] [address] Fitter'S Assistant 02/04/23 Bobbin Inspector Relationship Specialty Start Date End Date Rito Camp MD [address] [facility] [place] [address] PCP - General Family Medicine 01/27/21 Suleman uGstafson [address] [place] [address] Systems Librarian 04/27/21 Kerrie Damian, ELDER [address] [place] [address] Fitter'S Assistant 02/04/23 Bobbin Inspector Relationship Specialty Start Date End Date Rito Camp MD [address] [facility] [place] [address] PCP - General Family Medicine 01/27/21 Suleman Gustafson [address] [place] [address] Systems Librarian 04/27/21 Kerrie Damian RN [address] [place], [place] [id number] Fitter'S Assistant 02/04/23 Bobbin Inspector Relationship Specialty Start Date End Date Rito Camp MD [address] [place] [address] PCP - General Family Medicine 01/27/21 Suleman Gustafson [address] [place] [address] Systems Librarian 04/27/21 Kerrie Damian RN [address] [place] [address] Fitter'S Assistant 02/04/23 Bobbin Inspector Relationship Specialty Start Date End Date Rito Camp MD [address] [place] [address] PCP - General Family Medicine 01/27/21 Suleman Gustafson [address] [place] [address] Systems Librarian 04/27/21 Ruth Denton, engineer of system developmentFitter'S Assistant 09/26/22 02/03/23 Bobbin Inspector Relationship Specialty Start Date End Date Rito Camp MD [address] [place] [address] PCP - General Family Medicine 01/27/21 Kami Hunter RN [address] [place] [id number] Fitter'S Assistant 04/27/2109/03 Suleman Gustafson [address] [place] [address] Systems Librarian 04/27/21 Bobbin Inspector Relationship Specialty Start Date End Date Rito Camp MD [address] [place] [address] PCP - General Family Medicine 01/27/21 Suleman Gustafson [address] [facility] [place] [address] Systems Librarian 04/27/21 Ruth Denton RN Fitter'S Assistant 09/26/22 02/03/23 Bobbin Inspector Relationship Specialty Start Date End Date Rito Camp MD [address] [place] [address] PCP - General Family Medicine 01/27/21 Suleman Gustafson [address] [place] [address] Systems Librarian 04/27/21 Kerrie Damian, ELDER [address] [place] [id number] Fitter'S Assistant 02/04/23 Bobbin Inspector Relationship Specialty Start Date End Date Rito Camp MD [address] [place] [address] PCP - General Family Medicine 01/27/21 Suleman Gustafson [address] [place] [address] Systems Librarian 04/27/21 Ruth Denton, engineer of system developmentFitter'S Assistant 09/26/22 02/03/23 Bobbin Inspector Relationship Specialty Start Date End Date Rito Camp MD [address] [facility] [place] [address] PCP - General Family Medicine 01/27/21 Suleman Gustafson [address] [place] [address] Systems Librarian 04/27/21 Ruth Denton, engineer of system developmentFitter'S Assistant 09/26/22 02/03/23 Bobbin Inspector Relationship Specialty Start Date End Date Rito Camp MD [address] [facility] [place] [address] PCP - General Family Medicine 01/27/21 Suleman Gustafson [address] [place] [address] Systems Librarian 04/27/21 Kerrie Damian RN [address] [place] [address] Fitter'S Assistant 02/04/23 Bobbin Inspector Relationship Specialty Start Date End Date Rito Camp MD [address] [facility] [place] [address] PCP - General Family Medicine 01/27/21 Suleman Gustafson [address] [place] [address] Systems Librarian 04/27/21 Kerrie Damian RN [address] [place], [place] [id number] Fitter'S Assistant 02/04/23 Bobbin Inspector Relationship Specialty Start Date End Date Rito Camp MD [address] [facility] [place] [address] PCP - General Family Medicine 01/27/21 Suleman Gustafson [address] [place] [place] [address] Systems Librarian 04/27/21 Kerrie Damian, ELDER [address] [place] [address] [id number] Fitter'S Assistant 02/04/23 Bobbin Inspector Relationship Specialty Start Date End Date Rito Camp MD [address] [place] [address] PCP - General Family Medicine 01/27/21 Suleman Gustafson [address] [facility] [place] [address] Systems Librarian 04/27/21 Christine Parker, engineer of system developmentFitter'S Assistant 08/15/23 Bobbin Inspector Relationship Specialty Start Date End Date Rito Camp MD [address] [place] [address] PCP - General Family Medicine 01/27/21 Suleman Gustafson [address] [place] [address] Systems Librarian 04/27/21 Christine Parker, engineer of system developmentFitter'S Assistant 08/15/23 Bobbin Inspector Relationship Specialty Start Date End Date Rito Camp MD [address] [place] [address] PCP - General Family Medicine 01/27/21 Suleman Gustafson [address] [place] [address] Systems Librarian 04/27/21 Christine Parker, engineer of system developmentFitter'S Assistant 08/15/23 Bobbin Inspector Relationship Specialty Start Date End Date Rito Camp MD [address] [facility] [place] [address] PCP - General Family Medicine 01/27/21 Suleman Gustafson [address] [place] [address] Systems Librarian 04/27/21 Christine Parker, engineer of system developmentFitter'S Assistant 08/15/23 Bobbin Inspector Relationship Specialty Start Date End Date Rito Camp MD [address] [place] [address] PCP - General Family Medicine 01/27/21 Suleman Gustafson [address] [place] [address] Systems Librarian 04/27/21 Christine Parker, engineer of system developmentFitter'S Assistant 08/15/23 Bobbin Inspector Relationship Specialty Start Date End Date Rito Camp MD [address] [place] [address] PCP - General Family Medicine 01/27/21 Suleman Gustafson [address] [place] [address] Systems Librarian 04/27/21 Christine Parker, engineer of system developmentFitter'S Assistant 08/15/23 Bobbin Inspector Relationship Specialty Start Date End Date Rito Camp MD [address] [place] [address] PCP - General Family Medicine 01/27/21 Suleman Gustafson [address] [place] [address] Systems Librarian 04/27/21 Christine Parker, engineer of system developmentFitter'S Assistant 08/15/23 Bobbin Inspector Relationship Specialty Start Date End Date Rito Camp MD [address] [facility] [place] [address] PCP - General Family Medicine 01/27/21 Suleman Gustafson [address] [place] [place] [address] Systems Librarian 04/27/21 Christine Parker RN Fitter'S Assistant 08/15/23 Bobbin Inspector Relationship Specialty Start Date End Date Rito Camp MD [address] [facility] [place] [address] PCP - General Family Medicine 01/27/21 Suleman Gustafson [address] [place] [address] Systems Librarian 04/27/21 Christine Parker, engineer of system developmentFitter'S Assistant 08/15/23 Team Status: Inactive Member Role Status Dates Dr. Rito Camp MD Primary Care Provider Active Sierra Dee HOLTER TECHNICIAN, HOLTER TECHNICIAN-C Attending Provider, Ruth reza Provider Active Bobbin Inspector Relationship Specialty Start Date End Date Rito Camp MD [address] [facility] [place] [address] PCP - General Family Medicine 01/27/21 Suleman Gustafson [address] [place] [address] Systems Librarian 04/27/21 Christine Parker, engineer of system developmentFitter'S Assistant 08/15/23 Bobbin Inspector Relationship Specialty Start Date End Date Rito Camp MD [address] [facility] [place] [address] PCP - General Family Medicine 01/27/21 Suleman Gustafson [address] [place] [address] Systems Librarian 04/27/21 Christine Parker, engineer of system developmentFitter'S Assistant 08/15/23 Bobbin Inspector Relationship Specialty Start Date End Date Rito Camp MD [address] [facility] [place] [address] PCP - General Family Medicine 01/27/21 Suleman Gustafson [address] [place] [address] Systems Librarian 04/27/21 Christine Parker, engineer of system developmentFitter'S Assistant 08/15/23 Bobbin Inspector Relationship Specialty Start Date End Date Rito Camp MD [address] [facility] [place] [address] PCP - General Family Medicine 01/27/21 Suleman Gustafson [address] [place] [address] Systems Librarian 04/27/21 Christine Parker, engineer of system developmentFitter'S Assistant 08/15/23 Bobbin Inspector Relationship Specialty Start Date End Date Rito Camp MD [address] [facility] [place] [address] PCP - General Family Medicine 01/27/21 Suleman Gustafson [address] [place] [address] Systems Librarian 04/27/21 Christine Parker, engineer of system developmentFitter'S Assistant 08/15/23 Bobbin Inspector Relationship Specialty Start Date End Date Rito Camp MD [address] [facility] [place] [address] PCP - General Family Medicine 01/27/21 Suleman Gustafson [address] [place] [address] Systems Librarian 04/27/21 Christine Parker, engineer of system developmentFitter'S Assistant 08/15/23 Bobbin Inspector Relationship Specialty Start Date End Date Rito Camp MD [address] [facility] [place] [address] PCP - General Family Medicine 01/27/21 Suleman Gustafson [address] [place] [address] Systems Librarian 04/27/21 Christine Parker, engineer of system developmentFitter'S Assistant 08/15/23 Bobbin Inspector Relationship Specialty Start Date End Date Rito Camp MD [address] [facility] [place] [address] PCP - General Family Medicine 01/27/21 Suleman Gustafson [address] [place] [place] [address] Systems Librarian 04/27/21 Ruth Denton, engineer of system developmentFitter'S Assistant 09/26/22 02/03/23 Bobbin Inspector Relationship Specialty Start Date End Date Rito Camp MD [address] [facility] [place] [address] PCP - General Family Medicine 01/27/21 Kami Hunter RN [address] [place], [place] [id number] Fitter'S Assistant 04/27/2109/03 Suleman Gustafson [address] [place] [address] Systems Librarian 04/27/21 Bobbin Inspector Relationship Specialty Start Date End Date Rito Camp MD [address] [place] [address] PCP - General Family Medicine 01/27/21 Kami Hunter RN [address] [place], [place] [id number] Fitter'S Assistant 04/27/2109/03 Suleman Gustafson [address] [place] [address] Systems Librarian 04/27/21 Bobbin Inspector Relationship Specialty Start Date End Date Rito Camp MD [address] [facility] [place] [address] PCP - General Family Medicine 01/27/21 Suleman Gustafson [address] [place] [address] Systems Librarian 04/27/21 Christine Parker RN Fitter'S Assistant 08/15/23 Bobbin Inspector Relationship Specialty Start Date End Date Darvin Gold III, MD NO FORWARDING ADDRESS PCP - General 11/30/02 01/26/21 Bobbin Inspector Relationship Specialty Start Date End Date Darvin Gold III, MD NO FORWARDING ADDRESS PCP - General 11/30/02 01/26/21 Bobbin Inspector Relationship Specialty Start Date End Date Darvin Gold III, MD NO FORWARDING ADDRESS PCP - General 11/30/02 01/26/21 Bobbin Inspector Relationship Specialty Start Date End Date Rito Camp MD [address] [facility] [place] [address] PCP - General Family Medicine 01/27/21 Suleman Gustafson [address] [place] [address] Systems Librarian 04/27/21 Christine Parker, engineer of system developmentFitter'S Assistant 08/15/23 Bobbin Inspector Relationship Specialty Start Date End Date Rito Camp MD [address] [facility] [place] [address] PCP - General Family Medicine 01/27/21 Suleman Gustafson [address] [place] [address] Systems Librarian 04/27/21 Christine Parker, engineer of system developmentFitter'S Assistant 08/15/23 Bobbin Inspector Relationship Specialty Start Date End Date Rito Camp MD [address] [facility] [place] [address] PCP - General Family Medicine 01/27/21 Suleman Gustafson [address] [place] [address] Systems Librarian 04/27/21 Christine Parker, engineer of system developmentFitter'S Assistant 08/15/23 Bobbin Inspector Relationship Specialty Start Date End Date Rito Camp MD [address] [place] [address] PCP - General Family Medicine 01/27/21 Suleman Gustafson [address] [place] [address] Systems Librarian 04/27/21 Christine Parker, engineer of system developmentFitter'S Assistant 08/15/23 Bobbin Inspector Relationship Specialty Start Date End Date Rito Camp MD [address] [place] [address] PCP - General Family Medicine 01/27/21 Suleman Gustafson [address] [place] [address] Systems Librarian 04/27/21 Christine Parker, engineer of system developmentFitter'S Assistant 08/15/23 Bobbin Inspector Relationship Specialty Start Date End Date Rito Camp MD [address] [place] [address] PCP - General Family Medicine 01/27/21 Suleman Gustafson [address] [facility] [place] [address] Systems Librarian 04/27/21 Christine Parker, engineer of system developmentFitter'S Assistant 08/15/23 Alex Brown APRN.MERCHANDISE EXAMINER [address] [place], [place] [address]86381 Room Service Food Server Family Medicine 08/08/24 Shanita Green PA-C [address] [place] [address] Room Service Food Server Family Medicine 08/08/24 Bobbin Inspector Relationship Specialty Start Date End Date Rito Camp MD [address] [place] [address] PCP - General Family Medicine 01/27/21 Suleman Gustafson [address] [place] [address] Systems Librarian 04/27/21 Alex Brown APRN.MERCHANDISE EXAMINER [address] [place] [address] Room Service Food Server Family Medicine 08/08/24 Shanita Green PA-C [address] [place] [address] Room [facility] 08/08/24 Bobbin Inspector Relationship Specialty Start Date End Date Rito Camp MD [address] [place] [address] PCP - General Family Medicine 01/27/21 Suleman Gustafson [address] [place] [address] Systems Librarian 04/27/21 Alex Brown APRN.MERCHANDISE EXAMINER [address] [place] [address] Room Service Food Server Family Medicine 08/08/24 Shanita Green PA-C [address] [place] [address] Room Service Food Server Family Medicine 08/08/24 Bobbin Inspector Relationship Specialty Start Date End Date Rito Camp MD [address] [facility] [place] [address] PCP - General Family Medicine 01/27/21 Suleman Gustafson [address] [place] [address] Systems Librarian 04/27/21 Alex Brown, ALAN.MERCHANDISE EXAMINER [address] [facility] [place] [address] Room Service Food Server Family Medicine 08/08/24 Shanita Green PA-C [address] [facility] [place] [address] Room Service Food Server Family Medicine 08/08/24 Bobbin Inspector Relationship Specialty Start Date End Date Rito Camp MD [address] [facility] [place] [address] PCP - General Family Medicine 01/27/21 Suleman Gustafson [address] [place] [address] Systems Librarian 04/27/21 Alex Brown, ALAN.MERCHANDISE EXAMINER [address] [facility] [place] [address] Room Service Food Server Family Medicine 08/08/24 Shanita Green PA-C [address] [facility] [place] [address] Room Service Food Server Family [facility] 08/08/24 Bobbin Inspector Relationship Specialty Start Date End Date Rito Camp MD [address] [place] [address] PCP - General Family Medicine 01/27/21 Suleman Gustafson [address] [place] [address] Systems Librarian 04/27/21 Alex Brown APRN.MERCHANDISE EXAMINER [address] [place] [address] Room Service Food Server Family [facility] 08/08/24 Shanita Green PA-C [address] [place] [address] Room Service Food Server Family [facility] 08/08/24 Bobbin Inspector Relationship Specialty Start Date End Date Rito Camp MD [address] [place] [address] PCP - General Family Medicine 01/27/21 Suleman Gustafson [address] [place] [address] Systems Librarian 04/27/21 Alex Brown APRN.MERCHANDISE EXAMINER [address] [place] [address] Room Service Food Server Family [facility] 08/08/24 Shanita Green PA-C [address] [place] [address] Room Service Food Server Family [facility] 08/08/24 Bobbin Inspector Relationship Specialty Start Date End Date Rito Camp MD [address] [place] [address] PCP - General Family Medicine 01/27/21 Suleman Gustafson [address] [place] [address] Systems Librarian 04/27/21 Alex Brown APRN.MERCHANDISE EXAMINER [address] [facility] [place] [address] Room Service Food Server Family [facility] 08/08/24 Shanita Green PA-C [address] [facility] [place] [address] Room Service [facility] 08/08/24 Bobbin Inspector Relationship Specialty Start Date End Date Rito Camp MD [address] [facility] [place] [address] PCP - General Family Medicine 01/27/21 Suleman Gustafson [address] [place] [address] Systems Librarian 04/27/21 Alex Brown APRN.MERCHANDISE EXAMINER [address] [facility] [place] [address] Room Service Food Server Family [facility] 08/08/24 Shanita Green PA-C [address] [facility] [place] [address] [facility] 08/08/24 Bobbin Inspector Relationship Specialty Start Date End Date Rito Camp MD [address] [facility] [place] [address] PCP - General Family Medicine 01/27/21 Suleman Gustafson [address] [place] [address] Systems Librarian 04/27/21 Alex Brown APRN.MERCHANDISE EXAMINER [address] [place] [address] Room Service Food Server Family [facility] 08/08/24 Shanita Green PA-C [address] [place] [address] [facility] 08/08/24 Bobbin Inspector Relationship Specialty Start Date End Date Rito Camp MD [address] [place] [address] PCP - General Family Medicine 01/27/21 Suleman Gustafson [address] [place] [address] Systems Librarian 04/27/21 Alex Brown APRN.MERCHANDISE EXAMINER [address] [place] [address] [facility] 08/08/24 Shanita Green PA-C [address] [place] [address] Room Service [facility] 08/08/24 Bobbin Inspector Relationship Specialty Start Date End Date Rito Camp MD [address] [place] [address] PCP - General Family Medicine 01/27/21 Suleman Gustafson [address] [facility] [place] [address] Systems Librarian 04/27/21 Alex Brown APRN.CNP [address] [place] [address] [facility] 08/08/24 Shanita Green PA-C [address] [place] [address] [id number] [facility] 08/08/24 Team Status: Active Member Role Status [...] Active Member Role Status Dates Dr. Rito aCmp MD Primary Care Provider Active Start: November 25, 2024 Dr. Rito Camp MD Attending Provider Active Start: November 25, 2024 Dr. Rito Camp MD Referring Provider Active Start: November 25, 2024 Bobbin Inspector Relationship Specialty Start Date End Date Rito Camp MD [address] [place] [address] [id number] PCP - General Family Medicine 01/27/21 12/06/24 Rito Camp MD [address] [place] [address] [id number] PCP - General Family Medicine 12/07/24 Suleman Gustafson [address] [place] [address] Systems Librarian 04/27/21 Alex Brown APRN.MERCHANDISE EXAMINER [address] [place] [address] Room Service Food Server [facility] 08/08/24 Shanita Green PA-C [address] [place] [address] Room Service [facility] 08/08/24 Bobbin Inspector Relationship Specialty Start Date End Date Rito Camp MD [address] [place], [place] [address]251 PCP - General Family Medicine 12/07/24 Suleman Gustafson [address] [place] [address] Systems Librarian 04/27/21 Alex Brown, ALAN.MERCHANDISE EXAMINER [address] [place] [address] Room Service Food Server [facility] 08/08/24 Shanita Green PA-C [address] [place] [address] [facility] 08/08/24 Bobbin Inspector Relationship Specialty Start Date End Date Rito Camp MD [address] [place] [address] PCP - General Family Medicine 12/07/24 Suleman Gustafson [address] [place] [address] Systems Librarian 04/27/21 Alex Brown APRN.MERCHANDISE EXAMINER [address] [place] [address] Room Service Food Server Family [facility] 08/08/24 Shanita Green PA-C [address] [place] [address] [facility] 08/08/24 Bobbin Inspector Relationship Specialty Start Date End Date Rito Camp MD [address] [place] [address] PCP - General Family Medicine 12/07/24 Suleman Gustafson [address] [place] [address] Systems Librarian 04/27/21 Alex Brown, MARKETER.MERCHANDISE EXAMINER [address] [place] [address] [facility] 08/08/24 Shanita Green PA-C [address] [place] [address] [facility] 08/08/24 Bobbin Inspector Relationship Specialty Start Date End Date Rito Camp MD [address] [place] [address] PCP - General Family Medicine 12/07/24 Suleman Gustafson [address] [place] [address] Systems Librarian 04/27/21 lAex Brown APRN.CNP [address] [place] [address] [facility] 08/08/24 Shanita Green PA-C [address] [place] [address] [facility] 08/08/24 Team Status: Inactive Member Role Status [...] End: January 01, 2025 Sierra Dee NP, HOLTER TECHNICIAN-C Attending Provider Active Start: January 01, 2025 End: January 01, 2025 Sierra Dee NP, HOLTER TECHNICIAN-C Referring Provider Active Start: January 01, 2025 [...] February 09, 2025 End: February 09, 2025 Bobbin Inspector Relationship Specialty Start Date End Date Rito Camp MD [address] [place] [address] PCP - General Family Medicine 12/07/24 Suleman Gustafson [address] [place] [address] Systems Librarian 04/27/21 Alex Brown APRN.MERCHANDISE EXAMINER [address] [place] [address] Room Service Food Server Family Medicine 02/01/25 Shanita Green PA-C [address] [place] [address] [facility] Family Medicine 02/01/25 Bobbin Inspector Relationship Specialty Start Date End Date Rito Camp MD [address] [place] [address] PCP - General Family Medicine 12/07/24 Suleman Gustafson [address] [place] [address] Systems Librarian 04/27/21 Alex Brown APRN.MERCHANDISE EXAMINER [address] [place] [address] Room Service Food Server Family [facility] 02/01/25 Shanita Green PA-C [address] [place] [address] Room Service Food Server Family Medicine 02/01/25 Bobbin Inspector Relationship Specialty Start Date End Date Rito Camp MD [address], [place] [address] PCP - General Family Medicine 12/07/24 Suleman Gustafson [address] [facility] [place] [address] Systems Librarian 04/27/21 Alex Brown APRN.MERCHANDISE EXAMINER [address] [place], [place] 334281 [facility] 02/01/25 Shanita Green PA-C [address] [place] [phone] [facility] 02/01/25 Bobbin Inspector Relationship Specialty Start Date End Date Rito Camp MD [address] [place] [address] [id number] PCP - General Family Medicine 12/07/24 Suleman Gustafson [address] [facility] [place] [address] Systems Librarian 04/27/21 Alex Brown APRN.MERCHANDISE EXAMINER [address] [place] [address] [facility] 02/01/25 Shanita Green PA-C [address] [place] [address] [facility] 02/01/25 Team Status: Active Member Role/Relationship Status [...] 2025 End: January 01, 2025 Sierra Dee HOLTER TECHNICIAN, HOLTER TECHNICIAN-C Attending Provider Active Start: January 01, 2025 End: January 01, 2025 Sierra Dee HOLTER TECHNICIAN, HOLTER TECHNICIAN-C Referring Provider Active Start: January 01, 2025 [...] Provider Active St art: March 31, 2025 Bobbin Inspector Relationship Specialty Start Date End Date Rito Camp MD [address] [place] [address] PCP - General Family Medicine 12/07/24 Suleman Gustafson [address] [place] [address] Systems Librarian 04/27/21 Alex Brown APRN.CNP [address] [place], [place] 5[address] Room Service Food Server Family Medicine 02/01/25 Shanita Green PA-C [address] [place], [place] [address] [facility] 02/01/25 Team Status: Inactive Member Role/Relationship Status Dates Dr. Rito Camp MD Primary Care Provider Active Start: January 01, 2025 End: January 01, 2025 Sierra Dee HOLTER TECHNICIAN, HOLTER TECHNICIAN-C Attending Provider Active Start: January 01, 2025 End: January 01, 2025 Sierra Dee HOLTER TECHNICIAN, HOLTER TECHNICIAN-C Referring Provider Active Start: January 01, 2025 [...] April 20, 2025 End: April 20, 2025 Bobbin Inspector Relationship Specialty Start Date End Date Rito Camp MD [address], [place] [phone] PCP - General Family Medicine 12/07/24 Suleman Gustafson [address] [facility] [place] [phone] Systems Librarian 04/27/21 Alex Brown APRN.MERCHANDISE EXAMINER [address] [place], [place] [id number] Room Service [employer] Server Family Medicine 02/01/25 Shanita Green PA-C [address] [place], [place] [id number] Room Service Food Server Family Medicine 02/01/25 Bobbin Inspector Relationship Specialty Start Date End Date Rito Camp MD [address], [place] [id number] PCP - General Family Medicine 12/07/24 Suleman Gustafson [address] [place] [phone] Systems Librarian 04/27/21 Alex Brown APRN.MERCHANDISE EXAMINER [address] [place] [address] [facility] 02/01/25 Shanita Green PA-C [address] [place] [address] [facility] 02/01/25 Team Status: Inactive Member Role/Relationship Status [...] May 10, 2025 End: May 10, 2025 Bobbin Inspector Relationship Specialty Start Date End Date Rito Camp MD [address], [place] [id number] PCP - General Family Medicine 12/07/24 Suleman Gustafson [address] [place] [phone] Systems Librarian 04/27/21 Alex Brown APRN.CNP [address] [place] [phone] [facility] 02/01/25 Shanita Green PA-C [address] [place] [address] [phone] [facility] Family Medicine 02/01/25 Bobbin Inspector Relationship Specialty Start Date End Date Rito Camp MD [address], [place] [phone] PCP - General Family Medicine 12/07/24 Suleman Gustafson [address] [facility] [place] [phone] Systems Librarian 04/27/21 Alex Brown APRN.MERCHANDISE EXAMINER [address] [place], [place] [phone] [facility] 02/01/25 Shanita Green PA-C [address] [place] [address] [facility] 02/01/25 Bobbin Inspector Relationship Specialty Start Date End Date Rito Camp MD [address] [place] [id number] PCP - General Family Medicine 12/07/24 Suleman Gustafson [address] [place] [phone] Systems Librarian 04/27/21 Alex Brown APRN.MERCHANDISE EXAMINER [address] [place] [phone] [facility] 02/01/25 Shanita Green PA-C [facility] [place] [address] [facility] 02/01/25 Team Status: Active Member Role/Relationship Status Dates Dr. Rito Camp MD Primary care physician Active Team Status: Inactive Member Role/Relationship Status Dates Dr. Rito Camp MD Primary care physician Active Start: February 09, 2025 End: February 09, 2025 Dr. Rito Camp MD Referring Provider Active Start: February 09, 2025 End: February 09, 2025 Letha Emery , HOLTER TECHNICIAN-C Attending physician Active Start: February 09, 2025 [...] 2025 End: April 20, 2025 Angella Cueto HOLTER TECHNICIAN-C Attending physician Active Start: April 20, 2025 End: April 20, 2025 Team Status: Active Member Role/Relationship Status Dates Dr. Rito Camp MD Primary care physician Active Start: May 06, 2025 Angella Cueto HOLTER TECHNICIAN-C Attending physician Active Start: May 06, 2025 Angella Cueto HOLTER TECHNICIAN-C Referring Provider Active Start: May 06, 2025 Team Status: Inactive Member Role/Relationship Status Dates Dr. Rito Camp MD Primary care physician Active Start: May 10, 2025 End: May 10, 2025 Angella Cueto HOLTER TECHNICIAN-C Attending physician Active Start: May 10, 2025 End: May 10, 2025 Angella Cueto HOLTER TECHNICIAN-C Referring Provider Active Start: May 10, 2025 [...] section and content) DATE CREATED AUTHOR 06/12/2025 [facility] DATE CREATED AUTHOR AUTHOR'S SHARONDAIZ ATION 07/11/2025 [facility] FOR RECORDS PERTAINING TO PATIENTS WHO [...] BE BASED ON THE PRIMARY CLINICAL RECORDS. [employer] [facility]. provides no warranty or guarantee of the accuracy or completeness of information in this document.
--- OUTSIDE RECORDS SUMMARY | 2025-08-27 11:39 | XMS RPT_ITS | CCD ---
Author Organization [facility] Care Team Providers Care Testing Consultant Name Role Phone Rito Camp MD Primary Care Provider Dale FRIEDMAN, Kami Crmu Unavailable Unavail able Suleman Gustafson Unavailable Dr. Rito Camp Primary Care Provider Leila YELLOW PAGES SPACE SALESPERSON, YELLOW PAGES SPACE SALESPERSON-C Sierra Referring Provider Leila YELLOW PAGES SPACE SALESPERSON, YELLOW PAGES SPACE SALESPERSON-C Sierra Other Provider Dr. Jim Simeon Attending Provider Dale FRIEDMAN, Kami Crum Unavailable Dr. Eb Godinez Emergency Provider Dr. Rita Foster Admit Provider Dr. Rita Foster Other Provider Dr. Jzaz Collins Attending Provider Dr. Jazz Collins Other Provider Dr. Kami Randall Other Provider Dr. Kami Randall Attending Provider Rito Camp MD Primary Care Provider Dale FRIEDMAN, Kami Crum Unavailable Suleman Gustafson Unavailable Dr. Rito Camp Primary Care Provider Dr. Kami Radnall Referring Provider Dr. Rito Camp Referring Provider [...] Provider Dr. Jeffrey Mckee Attending Provider Leila YELLOW PAGES SPACE SALESPERSON, YELLOW PAGES SPACE SALESPERSON-C Sierra Attending Provider Dr. Tyler Green Emergency [...] Provider Dr. Rito Camp Referring Provider Leila YELLOW PAGES SPACE SALESPERSON, YELLOW PAGES SPACE SALESPERSON-C Sierra Attending Provider [phone] Naina FONTANEZ, Rito Vines Primary Care Provider [phone] Asif SMYTH MD, Darvin A Primary Care Provider Tasneem vailable Bran PHILLIPS.COMPOUNDING AND FINISHING SUPERVISOR, Alex Unavailable Peter DOBBINS, Shanita Unavailable Naina [...] Referring Provider Yuly VOSS-CLetha Attending Provider Bran PHILLIPS.COMPOUNDING AND FINISHING SUPERVISOR, Alex Unavailable Peter DOBBINS, Shanita Unavailable Dr. [...] FONTANEZ, Dr. Veras Primary Care Provider Rom YELLOW PAGES SPACE SALESPERSON-C, Angella Referring Provider Naina FONTANEZ, Dr. Veras Primary Care Physician [phone] Letha Arora Attending Physician Mone FONTANEZ, Dr. Palma Attending Physician Jairo SCHMIDT, Dr. Nagel Attending Physician Jairo SCHMIDT, Dr. Nagel Nurse Practitioner Rom VOSS-Angella Moreno Attending Physician [phone] Lanette Salinas Attending Physician Doug FONTANEZ, Dr. [...] Unavailable Naina, Rito Primary Care Unavailable Leila YELLOW PAGES SPACE SALESPERSONSierra Referring Unavailable Leila YELLOW PAGES SPACE SALESPERSON, Sierra Attending Unavailable Naina, Rito Primary Care [...] Unavailable NAINA, RITO A Primary Care Unavailable RGEEN, SHANITA Referring Unavailable SHANNA NEWTON Referring Unavailable [...] (1 source) Lisinopril Drug Allergy 6 Cough [facility] Shellfish (1 source) Shellfish Food Allergy 3 Unknown [facility] (20 sources) Fish; Translations: [FISH] Food Allergy 5 [facility] Work Phone: (20 sources) Lisinopril; Translations: [LISINOPRIL] Drug Allergy 6 Cough [facility] Work Phone: (20 sources) HORSE SERUM [Other] Propensity to adverse reactions 5 Unknown [facility] Work Phone: (20 sources) SEAFOOD [Other] Propensity to adverse reactions 5 [facility] Work Phone: (4 sources) Seafood Allergy to substance 1 Angioedema [facility] Work Phone: (17 sources) Fish Containing Products; Translations: [Fish Containing Products] Allergy to substance 1 Angioedema [facility] (3 sources) horse serum Allergy to substance 1 Unknown [facility] Work Phone: (14 sources) Horse/Equine Containing Products; Translations: [HORSE/EQUINE CONTAINING PRODUCTS] Allergy to substance 2 NEEDS FOLLOW-UP [facility] (20 sources) Shellfish; Translations: [shellfish derived] Allergy to substance 3 Unknown [facility] (20 sources) Horse/Equine Containing Products Propensity to adverse reactions to drug 3 Unknown [facility] Work Phone: (1 source) Lisinopril Drug Allergy 5 [facility] Repository (1 source) Horse/Equine Containing Products Drug allergy (disorder) 5 [facility] Repository Medications Current Medications Medication Drug Class(es) [...] Comment on above: Take 1,000 mg by [facility] twice daily. azithromycin 250 mg oral tablet [...] daily until gone. Take 2 tablets by [facility] once daily for 1 day, THEN 1 tablet once daily for 4 days. biotin 5 mg sublingual tablet (20 sources) Start: 02-23-2021 take 1 tablet under the tongue once daily BIOTIN ORAL Take 5,000 mcg by mouth. Active BIOTIN ORAL Take 5,000 mcg by mouth. 0 Active Comment on above: Take 5,000 mcg by [facility]. Budesonide-Formoterol (20 sources) Corticosteroid, beta2-Adrenergic Agonist Start: [...] use Start: 08-19-2023 take 1 puff(s) by [facility] twice daily Budesonide-Formoterol (Symbicort) 160-4.5 mcg/actuation HFA [...] use Start: 08-29-2022 take 1 puff(s) by [facility] twice daily Budesonide-Formoterol (Symbicort) 160-4.5 mcg/actuation HFA [...] use Start: 03-17-2022 take 1 puff(s) by [facility] twice daily Budesonide-Formoterol (Symbicort) 160-4.5 mcg/actuation HFA [...] sources) Start: 06-01-2023 take 1 tablet by [facility] once daily Start: 05-09-2016 End: 04-27-2021 take [...] 20 mg/ml oral solution (20 sources) Uncompetitive [place] te Receptor Antagonist, Sigma-1 Agonist Start: 06-10-2024 [...] Comment on above: Take 1 capsule by [facility] once daily. perflutren lipid microspheres 1.3 mL [...] 1 tablet by mouth once daily Vitamin G23-Mscrx Acid (Folic Acid Plus B12) 1-0.8 mg Tablet (1 source) Start: 03-17-2022 take 1 tablet by mouth once daily Vitamin Z92-Nhrsk Acid (Folic Acid Plus B12) 1-0.8 mg [...] for pain for up to 3 days. [id number] 200 actuat albuterol 0.09 mg/actuat metered dose [...] Comment on above: Take 1 tablet by [facility] one time a week. Take with a [...] on above: Take 1 capsule by mo [facility] three times a day as needed. Take [...] Corticosteroid, beta2-Adrenergic Agonist Start: 11-07-2018 End: 10-12-2019 Ruzibwvjvic-Uxmkkjgff-Nnyn nter (Trelegy Ellipta) 100-62.5-25 mcg blister with device Discontinued 1 NMA INHALATION DAILY 3 3 November 07, 2018 2:57pm October 12, 2019 11:24am Start: 11-07-2018 End: 10-12-2019 Iaieqavossm-Ooudnysiy-Uqxady er (Trelegy Ellipta) 100-62.5-25 mcg blister with device Discontinued 1 NMA INHALATION DAILY 3 November 07, 2018 2:57pm October 12, 2019 11:24am Start: 11-07-2018 End: 10-12-2019 Bdqgyvtglpl-Tofwbckbw-Fbpuql er (Trelegy Ellipta) 100-62.5-25 mcg blister with device Discontinued 1 INH INHALATION DAILY November 07, 2018 2:57pm October 12, 2019 11:24am Start: 11-07-2018 End: 11-07-2018 Ikxhvcpwmml-Qjlnphfyt-Bapuld er (Trelegy Ellipta) 100-62.5-25 mcg blister with device Discontinued 1 NMA INHALATION DAILY 3 3 November 07, 2018 2:39pm November 07, 2018 2:57pm Start: 11-07-2018 End: 11-07-2018 Fmuqzhzhupi-Tfpvafvnk-Nieokb er (Trelegy Ellipta) 100-62.5-25 mcg blister with device Discontinued 1 NMA INHALATION DAILY November 07, 2018 2:39pm November 07, 2018 2:57pm Start: 11-07-2018 End: 11-07-2018 Zrcjaotxfrn-Bvxitmzbo-Kpghqs er (Trelegy Ellipta) 100-62.5-25 mcg blister with device Discontinued 1 INH INHALATION DAILY November 07, 2018 2:39pm November 07, 2018 2:57pm Start: 07-04-2018 End: 11-07-2018 Wsjfjhgoaid-Pnxfzzscg-Qlcuho er (Trelegy Ellipta) 100-62.5-25 mcg blister with device Discontinued 1 INH INHALATION DAILY July 04, 2018 3:42pm November 07, 2018 2:40pm Start: 07-04-2018 End: 11-07-2018 Rgxrottryvt-Hzrtzwsde-Jgbbor er (Trelegy Ellipta) 100-62.5-25 mcg blister with device Discontinued 1 NMA INHALATION DAILY July 04, 2018 12:00am November 07, 2018 2:40pm Start: 07-04-2018 End: 11-07-2018 Xnnbvpdxatd-Rosaxqozb-Nfbuym er (Trelegy Ellipta) 100-62.5-25 mcg blister with [...] sources) Anticholinergic Start: 09-15-2024 End: 03-25-2025 Ipratropium Godfrey 42 mcg (0.06 %) spray,non-aerosol Discontinued 2 NMA INTRANASAL THREE TIMES A DAY 15 September 15, 2024 1:00am March 25, 2025 3:59pm administer into each nostril Ipratropium Godfrey 42 mcg (0.06 %) spray,non-aerosol (7 sources) Start: 09-15-2024 End: 03-25-2025 Ipratropium Godfrey 42 mcg (0.06 %) spray,non-aerosol Discontinued 2 [...] 2:21pm October 19, 2024 11:50am breathing multivit-min/folic acid/whu643 (ALIVE WOMEN'S GUMMY VITAMINS ORAL) (2 sources) End: multivit-min/folic acid/xue974 (ALIVE WOMEN'S GUMMY VITAMINS ORAL) Take by [...] on above: Take 1 capsule by mo [facility] daily at bedtime. nystatin 360299 unt/ml oral suspension (16 sources) Polyene Antifungal [...] Comment on above: Take 1 tablet by [facility] once daily. Peg 3350-Sod Sulf,Xpkr-Aei-Cwi (2 sources) Start: 12-17-2024 End: 12-21-2024 Peg 3350-Sod Sulf,Elma-Wxp-Kum (Suflave) 178.7-7.3-0.5 gram recon soln Discontinued 0 PO .COMPLEX 2 0 December 17, 2024 12:00am December 21, 2024 5:32pm take as directed for split dose bowel prep Peg 3350-Sod Sulf,Elmj-Bmc-Ubu (Suflave) 178.7-7.3-0.5 gram recon soln (6 sources) Start: 12-17-2024 End: 12-21-2024 Peg 3350-Sod Sulf,Xbtg-Qzi-Wmi (Suflave) 178.7-7.3-0.5 gram recon soln Discontinued 0 [...] tablet 06/05/2024 08/03/2024 Discontinued polyethylene glycol 3350 664894 mg / potassium chloride 2970 mg / sodium bicarbonate 6740 mg / sodium chloride 5860 mg / sodium sulfate 79704 mg powder for oral solution (8 sources) [...] 2.5 ug by inhalation once daily Tiotropium Godfrey (Spiriva Respimat) 2.5 mcg/actuation mist Discontinued 2 NMA INHALATION daily 3 December 06, 2021 1:31pm March 17, 2022 11:10pm administer at approximately the same time(s) each day Start: 01-06-2020 End: 02-25-2023 take 1 puff(s) by inhalation once daily Tiotropium Godfrey (Spiriva Respimat) 2.5 mcg/actuation mist Discontinued 2 PUFF INHALATION daily December 06, 2021 1:31pm March 17, 2022 11:10pm administer at approximately the same time(s) each day Start: 10-12-2019 End: 01-06-2020 take 2.5 ug by inhalation once daily Tiotropium Godfrey (Spiriva Respimat) 2.5 mcg/actuation mist Discontinued 2 NMA INHALATION daily 3 October 12, 2019 11:25am January 06, 2020 1:01pm administer at approximately the same time(s) each day Start: 10-12-2019 End: 01-06-2020 take 2.5 ug by inhalation once daily Tiotropium Godfrey (Spiriva Respimat) 2.5 mcg/actuation mist Discontinued 2 NMA INHALATION daily October 12, 2019 11:25am January 06, 2020 1:01pm administer at approximately the same time(s) each day Start: 10-12-2019 End: 01-06-2020 take 1 puff(s) by inhalation once daily Tiotropium Godfrey (Spiriva Respimat) 2.5 mcg/actuation mist Discontinued 2 PUFF INHALATION daily October 12, 2019 11:25am January 06, 2020 1:01pm administer at approximately the same time(s) each day Start: 09-21-2019 End: 10-12-2019 take 2.5 ug by inhalation once daily Tiotropium Godfrey (Spiriva Respimat) 2.5 mcg/actuation mist Discontinued 2 NMA INHALATION daily 3 September 21, 2019 1:27pm October 12, 2019 11:26am administer at approximately the same time(s) each day Start: 09-21-2019 End: 10-12-2019 take 2.5 ug by inhalation once daily Tiotropium Godfrey (Spiriva Respimat) 2.5 mcg/actuation mist Discontinued 2 NMA INHALATION daily September 21, 2019 1:27pm October 12, 2019 11:26am administer at approximately the same time(s) each day Start: 09-21-2019 End: 10-12-2019 take 1 puff(s) by inhalation once daily Tiotropium Godfrey (Spiriva Respimat) 2.5 mcg/actuation mist Discontinued 2 PUFF INHALATION daily September 21, 2019 1:27pm October 12, 2019 11:26am administer at approximately the same time(s) each day Start: 09-14-2019 End: 09-21-2019 take 2.5 ug by inhalation once daily Tiotropium Godfrey (Spiriva Respimat) 2.5 mcg/actuation mist Discontinued 2 NMA INHALATION daily 09 07September 14, 2019 4:34pm September 21, 2019 1:27pm administer at approximately the same time(s) each day Start: 09-14-2019 End: 09-21-2019 take 2.5 ug by inhalation once daily Tiotropium Godfrey (Spiriva Respimat) 2.5 mcg/actuation mist Discontinued 2 NMA INHALATION daily September 14, 2019 4:34pm September 21, 2019 1:27pm administer at approximately the same time(s) each day Start: 09-14-2019 End: 09-21-2019 take 1 puff(s) by inhalation once daily Tiotropium Godfrey (Spiriva Respimat) 2.5 mcg/actuation mist Discontinued 2 PUFF INHALATION daily September 14, 2019 4:34pm September 21, 2019 1:27pm administer at approximately the same time(s) each day Start: 09-14-2019 End: 09-14-2019 take 2.5 ug by inhalation once daily Tiotropium Godfrey (Spiriva Respimat) 2.5 mcg/actuation mist Discontinued 2 NMA INHALATION daily 09 07September 14, 2019 4:32pm September 14, 2019 4:34pm administer at approximately the same time(s) each day Start: 09-14-2019 End: 09-14-2019 take 2.5 ug by inhalation once daily Tiotropium Godfrey (Spiriva Respimat) 2.5 mcg/actuation mist Discontinued 2 NMA INHALATION daily September 14, 2019 4:32pm September 14, 2019 4:34pm administer at approximately the same time(s) each day Start: 09-14-2019 End: 09-14-2019 take 1 puff(s) by inhalation once daily Tiotropium Godfrey (Spiriva Respimat) 2.5 mcg/actuation mist Discontinued 2 PUFF INHALATION daily September 14, 2019 4:32pm September 14, 2019 4:34pm administer at approximately the same time(s) each day Start: 02-04-2019 End: 09-14-2019 take 2.5 ug by inhalation once daily Tiotropium Godfrey (Spiriva Respimat) 2.5 mcg/actuation mist Discontinued 2 NMA INHALATION daily 09 07February 04, 2019 12:06pm September 14, 2019 4:32pm administer at approximately the same time(s) each day Start: 02-04-2019 End: 09-14-2019 take 2.5 ug by inhalation once daily Tiotropium Godfrey (Spiriva Respimat) 2.5 mcg/actuation mist Discontinued 2 NMA INHALATION daily February 04, 2019 12:06pm September 14, 2019 4:32pm administer at approximately the same time(s) each day Start: 02-04-2019 End: 09-14-2019 take 1 puff(s) by inhalation once daily Tiotropium Godfrey (Spiriva Respimat) 2.5 mcg/actuation mist Discontinued 2 PUFF INHALATION daily February 04, 2019 12:06pm September 14, 2019 4:32pm administer at approximately the same time(s) each day Start: 02-04-2019 End: 02-04-2019 take 2.5 ug by inhalation once daily Tiotropium Godfrey (Spiriva Respimat) 2.5 mcg/actuation mist Discontinued 2 NMA INHALATION daily 09 07February 04, 2019 12:05pm February 04, 2019 12:07pm administer at approximately the same time(s) each day Start: 02-04-2019 End: 02-04-2019 take 2.5 ug by inhalation once daily Tiotropium Godfrey (Spiriva Respimat) 2.5 mcg/actuation mist Discontinued 2 NMA INHALATION daily February 04, 2019 12:05pm February 04, 2019 12:07pm administer at approximately the same time(s) each day Start: 02-04-2019 End: 02-04-2019 take 1 puff(s) by inhalation once daily Tiotropium Godfrey (Spiriva Respimat) 2.5 mcg/actuation mist Discontinued 2 PUFF INHALATION daily February 04, 2019 12:05pm February 04, 2019 12:07pm administer at approximately the same time(s) each day Start: 12-22-2018 End: 10-01-2023 SPIRIVA RESPIMAT 2.5 mcg/act uation inhaler 12/22/2018 10/01/2023 Discontinued Start: 12-22-2018 End: 02-04-2019 take 1 puff(s) by inhalation once daily Tiotropium Godfrey (Spiriva Respimat) 2.5 mcg/actuation mist Discontinued 2 PUFF INHALATION daily December 22, 2018 10:48am February 04, 2019 12:05pm administer at approximately the same time(s) each day Start: 12-22-2018 End: 02-04-2019 take 2.5 ug by inhalation once daily Tiotropium Godfrey (Spiriva Respimat) 2.5 mcg/actuation mist Discontinued 2 NMA INHALATION daily 09 07December 22, 2018 12:00am February 04, 2019 12:05pm administer at approximately the same time(s) each day Start: 12-22-2018 End: 02-04-2019 take 2.5 ug by inhalation once daily Tiotropium Godfrey (Spiriva Respimat) 2.5 mcg/actuation mist Discontinued 2 NMA INHALATION daily December 22, 2018 12:00am February 04, 2019 12:05pm administer at approximately the same time(s) each day Start: 12-22-2018 End: 02-04-2019 take 1 puff(s) by inhalation once daily Tiotropium Godfrey (Spiriva Respimat) 2.5 mcg/actuation mist Discontinued 2 [...] Comment on above: Take 1 capsule by [facility] once daily. triamcinolone acetonide 40 mg/ml injectable [...] 12:00am April 16, 2022 9:10am infection Vitamin S72-Hreoq Acid (5 sources) Start: 03-17-2022 End: 02-25-2023 take 1 tablet by mouth once daily Vitamin I73-Wslfr Acid Discontinued 1 TABLET PO DAILY March 17, 2022 12:00am February 25, 2023 9:30am Start: 03-17-2022 take 1 tablet by [place] once daily Vitamin P05-Oynjy Acid Active 1 TABLET PO DAILY March 17, 2022 12:00am Vitamin F47-Jvakr Acid 1-0.8 mg Tablet (9 sources) Start: 03-17-2022 End: 02-25-2023 Vitamin I68-Xbqby Acid 1-0.8 mg Tablet Discontinued 1 {tbl} PO DAILY March 17, 2022 12:00am February 25, 2023 9:30am supplement Start: 03-17-2022 End: 02-25-2023 Vitamin O16-Stird Acid 1-0.8 mg Tablet Discontinued 1 {tbl} [...] Translations: [Other half-way (current) drug therapy] Onset: 1 01-27-2021 Episodic [...] uncomplicated] Onset: 5 Chronic Comment on above: 62-srzz-jlhy smoking history quit completely in 2010, repeat [...] 01-27-2021 Episodic Other aftercare (1 source) Other half-way (current) drug therapy; Translations: [Medication management] Onset: 01-27-2021 Episodic Other circulatory disease (1 source) Other specified symptoms and signs involving the circulatory and respiratory systems; Translations: [Choking in adult] Onset: 10-01-2024 Episodic Other CONCRETE BLOCK PLANT SUPERVISOR infection and poliomyelitis (20 sources) Epidural abscess; [...] CNOV Office Visit (FAMPWS ) DIANAASHLYNDIONY SIMS ([id number]) 1955 F Date Time Provider Department 07/06/25 9:40 AM ALEX BROWN During your visit today, we recorded the following information about you: Pulse Blood pressure Weight 99/minute 128/80 40 kg Alex Brown APRN.[facility] 07/06/2025 9:38 AM Signed Chief Complaint [...] (EXEP) 05/23/2021 EF=65%, 1+TI. COLONOSCOPY N/A 03/31/2025 [facility] - Dr. Gill COLONOSCOPY FLX DX W/COLLJ SPEC WHEN PFRMD 08/19/2006 Repeat in COLONOSCOPY FLX DX W/COLLJ SPEC WHEN PFRMD 06/27/2016 Colonoscopy CRANIOPLASTY SKULL DEF/REPAIR/ BRAIN 09/14/2014 See scanned documents - status post EGD W/O [facility] SPEC VARICIES INJ N/A 03/31/2025 [facility] - Dr. Gill ESOPHAGOGASTRODUODENO SCOPY TRANSORAL [...] by mouth (more content not included)... Normal [facility] MARCIANO SCREENING W TOMOon 07-05 MARCIANO SCREENING W TENISHA * * *Final Report* * * DATE OF EXAM: Jul 05 2025 11:11AM [facility] 0582 - MARCIANO SCREENING W TENISHA / PROCEDURE REASON: Encounter for screening mammogram for breast cancer * * * * Physician Interpretation * * * * RESULT: [facility] [address] [place] [address] [place] [address] #[id number] - MARCIANO SCREENING W TENISHA HISTORY: 70 [...] John Pérez M.D. Electronically signed on: 07/05/2025 Tug Master: KYLAH Transcribe Date/Time: Jul 05 2025 11:00A Dictated by: JOHN PÉREZ MD This examination was interpreted and the report reviewed and electronically signed by: JOHN PÉREZ MD on Jul 05 2025 2:15PM EST [id number] N Normal [facility] Joel 06-10-2025 JOSSE Telephone (4CQ) DIONY RAMIREZ ([id number]) 1955 F Date Time Provider Department 06/10/25 [...] phone number to schedule at her leisure [phone] as requested. Allergies As of Date: 06/10/2025 Noted Allergy Reaction FISH 06/23/2005 16 - Unknown HORSE/EQUINE CONTAINING PRODUCTS 08/30/2023 16 - Unknown LISINOPRIL 12/07/2015 3 - Cough SHELLFISH DERIVED 08/30/2023 16 - Unknown Date Reviewed: 05/27/2025 Reviewed by: Rito Camp MD - Fully Assessed Reason for Visit: Orders [681] Primary Visit Diagnosis:Encounter for screening mammogram for breast cancer [Z12.31] Order(s):[facility] SCREENING [[id number]] Order #: [id number] FUTURE Prescriptions as of 06/11/2025 - celecoxib [...] nodules [R91.8 (more content not included)... Normal [facility] L/S Spine Min 4 Viewson 10-0 7-2025 L/S Spine Min 4 Views [facility] [address] [place] [address] L/S Spine Min 4 Views MR#: [id number] Acct: [id number] Name: JENA RAMIREZ Rep #: [id number] : 1955 F 70 From: Velia Green MD PCP: Dr. Rito Camp MD Status: DEP AMB Study: L/S Spine Min 4 Views Date of Exam: 06/08/25 Exam# [id number] Ordering Dr: Lanette Carter EXAM: XR Lumbosacral [...] L2 vertebral body, likely chronic. Reading Location: [id number] CC: SUNNY De La Garza; Dr. Rito Camp MD Tug Master: Signed Normal [facility] Orthopedic Visit Reporton Orthopedic Visit Report [facility] [address] [place] [address] OFFICE VISIT Date of Service: 06/08/25 MR#: [id number] Acct: [id number] Name: JENA RAMIREZ HUDSON Rep #: [id number] : 1955 Provider: SUNNY De La Garza Age/Sex: 70/F Location[facility] Status: Signed Intake Vital Signs 04/20/25 10:26 [...] documented by Noa CHOW, acting as scribe. EJNA RAMIREZ is a 70 year old F [...] side bilateral (more content not included)... Normal [facility] CNOVon 05-27-2025 CNOV Office Visit (FAMPWS ) DIONY RAMIREZ ([id number]) 1955 F Date Time Provider Department 05/27/25 [...] she received an injection from her paint line supervisor, Dr. Epstein, yesterday. She initially sought evaluation [...] improved since the fall. She notes that ztcw-lzm-rotnuwe medications, including 800 mg of ibuprofen, have been ineffective. She has been using a wrist brace and applying ice packs twice daily, but reports no significant relief. She also tried various topical treatments, including lidocaine, Nevive, and [place], without improvement. The pain is affecting her [...] exam a (more content not included)... Normal [facility] XR HAND 3V PA/LAT/OBL RTon 0 05-27-2025 [...] acute osseous abnormality. Degenerative changes as described. Tug Master: LEONARDO Transcribe Date/Time: May 27 2025 9:45A Dictated by : GARETH ESCAMILLA DO This examination was interpreted and the report reviewed and electronically signed by: GARETH ESCAMILLA DO on May 27 2025 9:51AM EST [id number] N Normal [facility] XR WRIST 3V PA/LAT/OBL RTon 05-27-2025 XR [...] acute osseous abnormality. Degenerative changes as described. Tug Master: PSCB Transcribe Date/Time: May 27 2025 9:45A Dictated by : GARETH ESCAMILLA DO This examination was interpreted and the report reviewed and electronically signed by: GARETH ESCAMILLA DO on May 27 2025 9:51AM EST [id number] N Normal [facility] MRI LUMBAR SPINE WO IVCONon 05-24-2025 MRI [...] and assume there are 5 lumbar-type vertebrae. Tug Master: PSCB Transcribe Date/Time: May 24 2025 9:26A Dictated by : CHARLIE CRAMER MD This examination was interpreted and the report reviewed and electronically signed by: CHARLIE CRAMER MD on May 24 2025 9:39AM EST [id number] N Normal [facility] CNPKinsey 05-21-2025 CNPN Telephone (RUSWS) DIONY RAMIREZ ([id number]) 1955 F Date Time Provider Department 05/21/25 [...] Date Reviewed: 05/16/2025 Reviewed by: [place], [place], COLD STRIP FEEDER.COMPOUNDING AND FINISHING SUPERVISOR - Fully Assessed Reason for Visit: disk [...] hip [M25.552] (more content not included)... [facility]IRE[facility] ([id number]) 1955 F Date Time Provider Department 05/20/[facility] your visit today, we recorded [...] Date Reviewed: 05/16/2025 Reviewed by: Ky Shaver, ALAN.COMPOUNDING AND FINISHING SUPERVISOR - Fully Assessed Reason for Visit: Patient Question [2697] Prescriptions as of 05/21/2025 - cyclobenzaprine (FLEXERIL) [...] [J43.9] 03/18/2015 (more content not included)... Normal [facility] CNOVon 05-16-2025 CNOV Office Visit (WOUCA) DIONY RAMIREZ ([id number]) 1955 F Date Time Provider Department 05/16/25 [...] WRIST GENERAL 3V PA/LAT/OBL RIGHT Ky Shaver APRN.COMPOUNDING AND FINISHING SUPERVISOR Disposition The patient was discharged. Procedures Referring Provider: SELF [200] Allergies As of Date: 05/16/2025 Noted Allergy Reaction FISH 06/23/2005 16 - Unknown HORSE/EQUINE CONTAINING PRODUCTS 08/30/2023 16 - Unknown LISINOPRIL 12/07/2015 3 - Cough SHELLFISH DERIVED 08/30/2023 16 - Unknown Date Reviewed: 05/16/2025 Reviewed by: Ky Shaver APRN.COMPOUNDING AND FINISHING SUPERVISOR - Fully Assessed Reason for Visit: right wrist pain [Other] Cmt: Fell 1/2 hour ago Primary Visit Diagnosis:Injury of right wrist, initial encounter [S69.91XA] Order(s):XR WRIST GENERAL 3V PA/LAT/OBL RIGHT [3010110] Order #: [id number] FUTURE Prescriptions as of 05/16/2025 - cyclobenzaprine [...] 12/07/2015 Lumbar (more content not included)... Normal [facility] XR WRIST 3V PA/LAT/OBL RTon 05-16-2025 XR [...] No radiographic evidence of acute osseous injury Tug Master: [facility] Transcribe Date/Time: May 16 2025 1:05P Dictated by : KATIE WATERS MD This examination was interpreted and the report reviewed and electronically signed by: KATIE WATERS MD on May 16 2025 1:06PM EST [id number] Normal [facility] XR Wrist - right PA and Late ral and Obliqueon 05-16-2025 IMPRESSION: No radiographic evidence of acute osseous injury Tug Master: PSCB Transcribe Date/Time: May 16 2025 1:05P [...] Joint spaces preserved. DIVISION OF RADIOLOGY Provider, [facility] Cristal [facility] - 05/16/2025 * * *Final Report* [...] No radiographic evidence of acute osseous injury Tug Master: LEONARDO Transcribe Date/Time: May 16 2025 1:05P Dictated by : KATIE WATERS MD This examination was interpreted and the report reviewed and electronically signed by: KATIE WATERS MD on May 16 2025 1:06PM [facility] Radiology Study observation (narrative) Carlos nguyen [facility] XR Wrist - right PA and Late ral and ObliqueOrdered By: [facility] Provider on 05-16-2025 [facility] CNOVon 05-14-2025 CNOV Office Visit (SHELBYWS ) DIONY RAMIREZ ([id number]) 1955 F Date Time Provider Department 05/14/25 10:40 AM ALEX BROWN During your visit today, we recorded the following information about you: Pulse Blood pressure Weight 86/minute 153/74 40 kg Alex Brown, ALAN.COMPOUNDING AND FINISHING SUPERVISOR 05/14/2025 10:42 AM Signed Chief Complaint Patient [...] (EXEP) 05/23/2021 EF=65%, 1+TI. COLONOSCOPY N/A 03/31/2025 [facility] - Dr. Gill COLONOSCOPY FLX DX W/COLLJ SPEC WHEN PFRMD 08/19/2006 Repeat in COLONOSCOPY FLX DX W/COLLJ SPEC WHEN PFRMD 06/27/2016 Colonoscopy CRANIOPLASTY SKULL DEF/REPAIR/ BRAIN 09/14/2014 See scanned documents - status post EGD W/O [facility] SPEC VARICIES INJ N/A 03/31/2025 [facility] Ernie Gill ESOPHAGOGASTRODUODENO SCOPY TRANSORAL DIAGNOSTIC [...] one t (more content not included)... Normal [facility] 05-14-2025 [facility] Telephone (INTMWS) DIONY RAMIREZ ([id number]) 1955 F Date Time Provider Department 05/14/25 RITO CAMP INTWS During your visit today, we recorded the following information about you: Jacki Mark LPN 05/14/2025 10:44 AM Signed Electronic SUNNY rec'd and completed for cyclobenzaprine. This was approved. Prior authorization approved Payer: Janet Note from payer: SUNNY Case: [id number], Status: Approved, Coverage Starts on: 02/12/2025 12:00:00 AM, Coverage Ends on: 05/14/2026 12:00:00 AM. Approval Details Authorization number: [id number] Authorized from February 12, 2025 to May [...] to its destination. 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 Normal [facility] H. PYLORI STOOL AGon 025 H PYLORI STL AG Negative Normal Negative [facility] Comment on above: Result Comment: Perf ormed at: - [facility] [place] [id number] Civil Cad Tech: Yan Parnell PhD, Phone: [phone] Performed By: #### L 3100.1950 ####[facility] [address] [place], [place], [id number] Stool Helicobacter pylori an tigen detection by immunoassayOrdered By: Angella Cueto on 05-10-2025 H. pylori Ag IA Ql (Stl) Negative Negative [facility] Comment on above: Performed at: - [facility] [place] [id number] Director: Yan Parnell PhD, Phone: [phone] SP/HP.SP.Soheila 05-06-2025 SP/HP.SP.EV [facility] Speech Pathology [facility] [place] [id number] / REHABILITATION SERVICES INITIAL EVALUATION MR#: [id number] Acct: [id number] Name: JENA RAMIREZ HDUSON Rep #: [id number] : 1955 70 From: Kya Landry M.S., CCC-SHORT ORDER COOK Referring Dr.: Angella Cueto, YELLOW PAGES SPACE SALESPERSON-C Status: R EG RCR Insurance: MATHIEUEM MEDICARE SENIOR ADVANTA SELF PAY INSURANCE Visit History Visit Info Date of Eval: 05/06/25 Today is Visit #: 1 Recorder Helper Seismograph: OSCAR Paredes Attending Doctor: LAURENCE Referring Doctor: [...] 70 year old [facility] for evaluation of oropharyngeal and [...] She has also continued with previous diet. Dinoy reports having an EGD completed but was [...] current prescribed condition?: No Personal Preferred language: Nauruan Patient Allergies Allergies Allergies: Allergies Fish Containing [...] 1 oz (more content not included)... Normal [facility] CNOVon 05-04-2025 CNOV Office Visit (FAMPWS ) DERFLINGER,CANDY J ([id number]) 1955 F Date Time Provider Department 05/04/25 [...] (EXEP) 05/23/2021 EF=65%, 1+TI. COLONOSCOPY N/A 03/31/2025 [facility] - Dr. Gill COLONOSCOPY FLX DX W/COLLJ SPEC WHEN PFRMD 08/19/2006 Repeat in COLONOSCOPY FLX DX W/COLLJ SPEC WHEN PFRMD 06/27/2016 Colonoscopy CRANIOPLASTY SKULL DEF/REPAIR/ BRAIN 09/14/2014 See scanned documents - status post EGD W/O [facility] SPEC VARICIES INJ N/A 03/31/2025 [facility] - Friend ESOPHAGOGASTRODUODENO SCOPY TRANSORAL DIAGNOSTIC 06/27/2016 EGD ESOPHAGOGASTRODUODENO SCOPY TRANSORAL DIAGNOSTIC 06/30/2018 EGD IANDD ABSCESS CMPLX/MULT 07/2013 Epidural abscess- MSSA LIG/TRNSXJ FLP TUBE ABDL/VAG APPR UNI/BI Tubal ligation PAST SURGICAL HISTORY OF spinal surgery PAST SURGICAL HISTOR (more content not included)... Normal [facility] Gastroenterology Visit Repor ton 04-20-2025 Gastroenterology Visit Report [facility] Gastroenterology [address] [place] [address] OFFICE VISIT Date of Service: 04/20/25 MR#: [id number] Acct: [id number] Name: JENA RAMIREZ Rep #: [id number] : 1955 Provider: TRACI neil Age/Sex: 70/F [place] [facility] Status: Signed Intake Vital Signs 03/31/25 07:10 [...] you fallen in the past year?: No [facility] Medical History Alcohol use Easy bruising [...] Vomiting b (more content not included)... Normal [facility] 04-05-2025 [facility] Telephone (Clavister) DIONY RAMIREZ ([id number]) 1955 F Date Time Provider Department 04/05/25 [facility] During your visit today, we recorded the [...] subsequent [Z (more content not included)... Normal [facility] Colonoscopy Reporton 025 Colonoscopy Report [facility] Medical Records Department [address] [place] [address] Colonoscopy Report MR#: [id number] Acct: [id number] Name: JENA RAMIREZ HUDSON Rep #: [id number] : 1955 70 From: Robe Gill DO PCP: Dr. Rito Camp MD Status:REG [facility] Patient Name: Jena Ramirez Procedure Date: 03/31/2025 [...] for surveillance. Procedure Code(s): --- Professional --- 87133, Colonoscopy, flexible; with biopsy, single or multiple CPT copyright 2021 [employer]. All rights reserved. The codes documented in this report are preliminary and upon sign painter review may be revised to meet current compliance requirements. Robe Gill DO 03/31/2025 9:09:10 AM This report has been signed electronically. Number of Addenda: 0 Note Initiated On: 03/31/2025 8:29 AM 03/31/25 0909 Date Robe Gill DO Cosigner Signature: Date (if indicated) CC: Dr. Rito Camp MD; Robe Gill DO Date Dictated: 03/31/2529 D (more content not included)... Normal [facility] EGD Reporton 03-31-2025 EGD Report [facility] Medical Records Department [address] [place] [address] EGD Report MR#: [id number] Acct: [id number] Name: JENA RAMIREZ HUDSON Rep #: [id number] : 1955 70 From: Robe Gill DO PCP: Dr. Rito Camp MD Status:[facility] Patient Name: Jena Ramirez Procedure Date: 03/31/2025 [...] pathology results. Procedure Code(s): --- Professional --- 57040, Esophagogastroduodeno scopy, flexible, transoral; with insertion of guide wire followed by passage of dilator(s) through esophagus over guide wire 60194, 59,51, Esophagogastroduodeno scopy, flexible, transoral; with biopsy, single or multiple CPT copyright 2021 [employer]. All rights reserved. The codes documented in this report are preliminary and upon sign painter review may be revised to meet current compliance requirements. Robe Gill DO 03/31/2025 9:07:01 A (more content not included)... Normal [facility] Immunohistochemical Stainson 03-31-2025 Immunohistochemical Stains -------- Patient Age/Sex Location Account Attending Physician -------- BASIMJENA SIMS HUDSON 70/F EN [id number] Robe Gill DO -------- Specimen: [id number] Received: 03/31/25 Status: MASONOlivia Katia Num: [id number] Spec Type: EGD BIOPSY Subm Dr: Robe [...] developed and their performance characteristics determined by [facility]. They may not have been cleared [...] Attending Physician -------- JENA RAMIREZ 70/F EN [id number] Robe Friend, DO -------- cassette. C. Received [...] specimen is totally submitted in one cassette. [place] 03/31/2025 [facility]:[id number] -------- Patient Age/Sex Location Account Attending Physician -------- JENA RAMIREZ 70/F EN [id number] Robe Gill DO -------- Signed (signature on file) Dr. Gabriela Braun MD 04/05/25 1254 -------- Normal [facility] Comment on above: Performed By: #### P [facility] ####[facility] [address] [place], [place], [id number] MR/OP.PROVATon 03-31-2025 MR/OP.PROVAT [facility] Medical Records Department [address] [place] [address] Provation Physician Letter MR#: [id number] Acct: [id number] Name: JENA RAMIREZ Rep #: [id number] : 1955 70 From: Robe Gill DO PCP: Dr. Rito Cmap MD Status:REG [facility] 03/31/2025 Rito Camp MD Re : Colonoscopy [...] Gill DO Date Dictated: 03/31/25828 Date Transcribed: Tug Master: RF Signed Normal [facility] MR/OP.[facility] Medical Records Department [address] [place] [address] Provation Physician Letter MR#: [id number] Acct: [id number] Name: JENA RAMIREZ Rep #: [id number] : 1955 70 From: Robe Gill DO PCP: Dr. Rito Camp MD Status:[facility] 03/31/2025 Rito Camp MD Re : Upper [...] Gill DO Date Dictated: 03/31/25810 Date Transcribed: Tug Master: SANAM Signed [facility] MR/POSTOP.ANEon 03-31-2025 MR/POSTOP.[facility] Medical Records Department [address] [place] [address] Anesthesia Postop Eval I 03/31/25 0900 MR#: [id number] Acct: [id number] Name: JENA RAMIREZ HUDSON Rep #: [id number] : 1955 70 From: Filipe Rahman PCP: Dr. Rito Camp MD Status:REG SDC Y Race: C Location: [place] [address] Anesthesia: Postop Eval I Current Vital Signs [...] Date Filipe Mello Signature: Date CC: Signed [facility] MR/LAUZAZIK1hg 03-31-2025 MR/POSTOPAN2 [facility] Medical Records Department [address] [place] [address] Anesthesia Postop Eval II 03/31/25 0922 MR#: [id number] Acct: [id number] Name: JENA RAMIREZ HUDSON Rep #: [id number] : 1955 70 From: Gustavo Roque MD PCP: Dr. Rito Camp MD Status:REG SDC Y Race: C Location: [place] [address] Anesthesia Postop Eval I Sum Postop Eval [...] MD Cosigner Signature: Date CC: Signed Normal [facility] MR/PAT.GERMANon 03-25-2025 MR/PAT.[facility] Medical Records Department [address] [place] [address] PAT - Anesthesia 03/25/25 1623 MR#: [id number] Acct: [id number] Name: JENA RAMIREZ Rep #: [id number] : 1955 70 From: Humberto Gudino MD PCP: Dr. 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 Hx Hospitalization No 03/25/25 16:02 Any Problems [...] take am of surgery PONV PONV - material worker: PONV - material worker Female Yes 03/25/25 16:02 HX of Motion [...] 02/09/25 07:42 Respiratory Assessment Respiratory Assessment - material worker: Respiratory Tract Infection Hx - material worker Hx Respiratory Tract Infection No 03/25/25 16:02 STOP Sleep Apnea STOP Sleep Apnea - material worker: STOP Sleep Apnea - material worker Hx Hypertension Yes: PER PT, CONTROLLED ON [...] Tobacco Use History Tobacco Use History - material worker: Tobacco Use History - material worker Tobacco Use Smoking Status Former smoker 03/25/25 16:02 Hx Tobacco Use No 03/25/25 16:02 Years Smoking Packs Smoked per Day Smoking Cessation Date was Yes - quit smoking within 15 03/25/25 16:02 within the last 15 years years Hx Smoking Cessation Date 02/24/16 03/25/25 16:02 Hx Smoking Cessation No 03/25/25 16:02 Counseling Hematologic Medial History Hematologic Hx - material worker: 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 [facility] 03-17-2025 CNPN Telephone (FAMPWS) DIONY RAMIREZ ([id number]) 1955 F Date Time Provider Department 03/17[facility] During your visit today, we recorded the following information about you: Albania Gill RN 03/17/2025 9:03 AM Signed Benito from [facility] calls with prior authorization questions for [employer]. Questions Answered. Will fax results of prior authorization within 72 hours. Please Watch for response. PRIOR AUTHORIZATION Medication for Prior Authorization: [employer] Insurance Company: [employer] Patient insurance ID number: [id number] ELDER Courtney Janice, LPN 03/17/2025 10:27 AM [...] 09/21/2019 Chr (more content not included)... Normal [facility] BETA 2 GLYCOPROTEIN, IGGon 0 03-15-2025 Beta 2 glycoprotein 1 IgG IA Qn <9 Normal <20 [facility] Comment on above: Order Comment: Crow chavarria Type: BLOOD SPECIMENOrdering Facility: [facility] Address: [address] [place] [address] Result Comment: <20 SGU Negative 20-80 SGU [...] #### 5 076-5, CARDIG, CARDIM, BETA2G, BETA2M ####[facility] LABIA [id number] [place] [address] [place] BETA 2 GLYCOPROTEIN, IGMon 0 03-15-2025 Beta 2 glycoprotein 1 IgM IA Qn <9 Normal <20 [facility] Comment on above: Order Comment: Crow chavarria Type: BLOOD SPECIMENOrdering Facility: [facility] Address: [address] [place] [address] Result Comment: <20 SMU Negative 20-80 SMU [...] #### 5 076-5, CARDIG, CARDIM, BETA2G, BETA2M ####[facility] LABCLIA [id number] [address] [place] CARDIOLIPIN IGG ABSon 2024 Cardiolipin IgG IA Qn (S) <9.0 Normal <15.0 [facility] Comment on above: Order Comment: Crow chavarria Type: BLOOD SPECIMENOrdering Facility: [facility] Address: [address] [place] [address] Result Comment: <15 GPL Negative 15-20 GPL [...] #### 5 076-5, SERVANDO TURCIOS, BETA2G, BETA2M ####[facility] LABIA [id number] [place] [id number] [facility] CARDIOLIPIN IGM ABSon 2024 Cardiolipin IgM IA Qn (S) 16.8 MPL High <12.5 [facility] Comment on above: Order Comment: Speci men Type: BLOOD SPECIMENOrdering Facility: [facility] Address: [address] [place] [address] Result Comment: <12. 5 MPL Negative 12.5-20 MPL Indeterminate >20 MPL Positive The following results were obtained with the EndomedixA Lite JOSE JUAN IgM III BRIGETTE. Cardiolipin IgM values obtained with the different manufacturers' assay methods may not be used interchangeably. The magnitude of the reported IgM levels cannot be correlated to an endpoint titer. ??? Performed By: #### 5 076-5, SERVANDO TURCIOS, BETA2G, BETA2M ####[facility] LABIA [id number] [address] [facility] CNOVon 03-15-2025 CNOV Office Visit (FAMPWS ) DIONY RAMIREZ ([id number]) 1955 F Date Time Provider Department 03/15/25 [...] See s (more content not included)... Normal [facility] CRP SerPl-mCncon 03-15-2025 CRP [Mass/Vol] mg/L Normal <0.9 [facility] Comment on above: Order Comment: Speci men Type: BLOOD SPECIMENOrdering Facility: [facility] Address: [address] [place] [address] Performed By: #### 1 988-5 ####[facility] LABCLIA [id number] [place] [address] [place] Cardiolipin IgA Ser IA-aCnco n 03-15-2025 Cardiolipin IgA IA Qn (S) <9.0 Normal <12.0 [facility] Comment on above: Order Comment: Speci men Type: BLOOD SPECIMENOrdering Facility: [facility] Address: [address] [place] [address] Result Comment: <12 APL Negative 12-20 APL Indeterminate >20 APL Positive The following results were obtained with the i.[employer] QUANTA Lite JOSE JUAN IgA III BRIGETTE. Cardiolipin IgA values obtained with the different manufacturers' assay methods may not be used interchangeably. The magnitude of the reported IgA levels cannot be correlated to an endpoint titer. Performed By: #### 5 076-5, CARDIG, CARDIM, BETA2G, BETA2M ####[facility] LABIA [id number] [place] [address] [place] HYPERCOAG PANELon 03-15-2025 Activated protein C resistance Coag (PPP) [Time ratio] 5.92 Ratio Normal >=2.90 [facility] Comment on above: Order Comment: Speci men Type: BLOOD SPECIMENOrdering Facility: [facility] Address: [address] [place] [address] Performed By: #### L [id number], HCOAG ####[facility] LABCLIA [id number] [place] [id number] [place] Antithrombin actual/normal Chromogenic method (PPP) [Rel catalytic activity/Vol] 100 % Normal 84-138 [facility] Comment on above: Order Comment: Speci men Type: BLOOD SPECIMENOrdering Facility: [facility] Address: [address] [place] [address] Performed By: #### L [id number], HCOAG ####[facility] LABCLIA [id number] [place] [address] [place] aPTT Coag (Bld) [Time] 28.9 s Normal 24.0-35.1 [facility] Comment on above: Order Comment: Speci men Type: BLOOD SPECIMENOrdering Facility: [facility] Address: [address] [place] [address] Performed By: #### L [id number], HCOAG ####[facility] LABCLIA [id number] [place] [address] [place] aPTT W excess hexagonal phase phospholipid Coag (PPP) [Time] 41.7 seconds Normal 34.0-51.8 [facility] Comment on above: Order Comment: Speci men Type: BLOOD SPECIMENOrdering Facility: [facility] Address: [address] [place] [address] Performed By: #### L [id number], HCOAG ####[facility] LABCLIA [id number] [address] [place] Coagulation factor VIII activity actual/normal Coag (PPP) [Relative time] 154 % Normal 50-173 [facility] Comment on above: Order Comment: Speci men Type: BLOOD SPECIMENOrdering Facility: [facility] Address: [address] [place] [address] Performed By: #### L [id number], HCOAG ####[facility] LABCLIA [id number] [place] [address] [place] Coagulation factor X activated act Coag Qn (PPP) <0.10 Normal <0.10 [facility] Comment on above: Order Comment: Speci men Type: BLOOD SPECIMENOrdering Facility: [facility] Address: [address] [place] [address] Result Comment: This test was developed, and its performance characteristics determined by the [facility] Department of Pathology and Laboratory Medicine. It has not been cleared or approved by the FDA. The [facility] Department of Pathology and Laboratory Medicine is regulated under CLIA as qualified to perform high-complexity testing. This test is used for clinical purposes. It should not be regarded as investigational or for research. Performed By: #### L [id number], HCOAG ####[facility] LABCLIA [id number] [place] [address] [place] Delta dRVVT Coag (PPP) [Time diff] 2.1 delta seconds Normal <7.1 [facility] Comment on above: Order Comment: Speci men Type: BLOOD SPECIMENOrdering Facility: [facility] Address: [address] [place] [address] Performed By: #### L [id number], HCOAG ####[facility] LABCLIA [id number] [place] [address] [place] dRVVT W excess hexagonal phase phospholipid actual/normal Coag (PPP) [Relative time] 39.5 seconds Normal 34.2-47.9 [facility] Comment on above: Order Comment: Speci men Type: BLOOD SPECIMENOrdering Facility: [facility] Address: [address] [place] [address] Performed By: #### L [id number], HCOAG ####[facility] LABCLIA [id number] [place] [address] [place] FIBRINOGEN ACTIVITY 276 mg/dL Normal 200-400 [facility] Comment on above: Order Comment: Speci men Type: BLOOD SPECIMENOrdering Facility: [facility] Address: [address] [place] [address] Performed By: #### L [id number], HCOAG ####[facility] LABCLIA [id number] [place] [address] [place] Protein C actual/normal Coag (PPP) [Relative time] 100 % Normal 76-147 [facility] Comment on above: Order Comment: Speci men Type: BLOOD SPECIMENOrdering Facility: [facility] Address: [address] [place] [address] Performed By: #### L [id number], HCOAG ####[facility] [id number] [place] [address] [place] Protein S actual/normal Coag (PPP) [Relative time] 91 % Normal 59-152 [facility] Comment on above: Order Comment: Speci men Type: BLOOD SPECIMENOrdering Facility: [facility] Address: [address] [place] [address] Performed By: #### L [id number], HCOAG ####[facility] [id number] [place] [address] [place] PT Coag (Bld) [Time] 12.8 s Normal 11.6-14.4 [facility] Comment on above: Order Comment: Speci men Type: BLOOD SPECIMENOrdering Facility: [facility] Address: [address] [place] [address] Performed By: #### L [id number], HCOAG ####[facility] LABIA [id number] [place] [address] [place] Thrombin time Coag (PPP) [Time] 17.7 seconds Normal <18.6 [facility] Comment on above: Order Comment: Speci men Type: BLOOD SPECIMENOrdering Facility: [facility] Address: [address] [place] [address] Performed By: #### L [id number], HCOAG ####[facility] LABIA [id number] [place] [address] [place] HYPERCOAG PANEL INTERPon INTERPRETATION (HYPERCOAG) Normal [facility] Comment on above: Order Comment: Speccynthia chavarria Type: BLOOD SPECIMENOrdering Facility: [facility] Address: [address] [place] [address] Result Comment: Roshan ntsyl normal - see [...] negative for the c.*97G>A variant (legacy name 18313D>A) in the 3' untranslated region of the Factor II (F2) prothrombin gene. This result is not associated with an increased risk of thromboembolic disease. Please refer to the interpretation provided with the PT Gene Mutation result for further diagnostic and prognostic information. Please correlate these laboratory results with clinical findings and medication history. Performed By: #### L [id number], HCOAG ####[facility] LABCLIA [id number] [place] [address] [place] Pathologist name Reviewed by Bethany Tovar M.D., Ph.D Normal [facility] Comment on above: Order Comment: Crow chavarria Type: BLOOD SPECIMENOrdering Facility: [facility] Address: [address] [place] [address] Performed By: #### L [id number], HCOAG ####[facility] LABCLIA [id number] [address] OF [facility] PROTHROMBIN GENE PCRon 03-15 PROTHROMBIN GENE MUTATION Normal [facility] Comment on above: Order Comment: Speci men Type: BLOOD SPECIMENOrdering Facility: [facility] Address: [address] [place] [address] Result Comment: Prot hrombin Gene Mutation Laboratory Accession Number: [id number] Result: NORMAL Interpretation: The DNA sample is negative for the c.*97G>A variant (legacy name 43146X>A) in the 3' untranslated region of the Factor II (F2) gene. This result is not associated with an increased risk of thromboembolic disease. Thromboembolic disease is a multifactorial disorder and other causes are not excluded by this result. Methodology: Isolated Genomic DNA from the patient's blood specimen is evaluated for the c*97G>A (g.52657040) variant of the F2 gene [RefSeq NM_000506.53;GRCh38/hg38] by multiplex polymerase chain reaction (PCR) followed by melting curve analysis. Limitations: This assay is designed to detect the c.*97G>A (99885L>A) variant in the F2 gene. Uncommon variants or single nucleotide polymorphisms may affect binding of probes and may rarely result in false negative, false positive or indeterminate results. This assay does not detect other disease-associated rare variants in F2 or other causes of thromboembolic disease. Disclaimer: This test was developed and its performance characteristics determined by [facility]'s Pathology and Laboratory Medicine Department. It has not been cleared or approved by the FDA. [facility]'s Pathology and Laboratory Medicine Department is regulated under CLIA as certified to perform high-complexity testing. This test is used for clinical purposes. It should not be regarded as investigational or for research. Test performed at [facility], [address] [place] [address]. CLIA Number: [id number] References: 1) Inheritied Thrombophilias in . ACOG Practice Bulletin. No. 197. [place] [employer]st[employer] Gynec[employer]. Obsete Gynecol 2018;132:e18-34. 2) Jyothi SR, Dariana FR, Guy PH, and Romina RM. A common genetic variation in the 3'-untranslated region of the prothrombin gene is associated with elevated plasma prothrombin levels and an increase in venous thrombosis. Blood 88:3698-703, 1995. 3) Juan Jose Campos, Jake V, Hussain C, Jaymie Barboza. Prothrombin 60118U>T: 16 new cases, association with the 76538C>G polymorphism, and literature review. J Thromb Haemost. 2009;9:1585-7. Interpretation performed at remote location ([facility]) by Talia Hsu, PhD Performed By: #### P TGEN ####[facility] [id number] [address] [address] [place] Pulmonary Visit Reporton Pulmonary Visit Report [facility] [place] [id number] [address] [place] [address] OFFICE VISIT Date of Service: 02/09/25 MR#: [id number] Acct: [id number] Name: JENA RAMIREZ Rep #: [id number] : 1955 Provider: Letha Emery NP Age/Sex: 69/F [place] [facility] [place] Status: Signed Assessment and Plan Assessment and [...] limb th (more content not included)... Normal [facility] ECHOon 01-21-2025 Echocardiography Echocardiography Report: Transthoracic Echo [facility] Date of service: 01/21/2025 10:25:09 AM EXPLORATION ENGINEER Ordering physician: SHANITA GREEN Indication: Shortness of Breath Technologist: Albania Hammonds [facility] Interpreting physician: Rito Lawson MD PATIENT: [...] * * * Final * * * [facility] : [id number] amicsSISUID Normal [facility] D/C Summary- SPon 01-18-2025 D/C Summary- SP [facility] Speech Pathology [facility] [address] [place] [address] / REHABILITATION SERVICES DISCHARGE SUMMARY MR#: [id number] Acct: [id number] Name: JENA RAMIREZ Rep #: [id number] : 1955 69 From: Yossi Robison M.A., [facility] Referring Dr.: Dr. Rito Camp MD Status: R EG RCR Insurance: [facility] MEDIC[facility] S[facility]F PAY INSURANCE ST Discharge Summary Discharged: Discharge: Jena Ramirez is discharged from [facility] as of January 18, 2025. She was [...] Dr. 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 - Recent lung scan performed at the [...] OF 2/3 (more content not included)... Normal [facility] XR FOOT 3V AP/LAT/OBL RTon 0 - [...] No radiographic evidence of acute osseous injury Tug Master: PSCB Transcribe Date/Time: Jan 05 2025 10:54A Dictated by : KATIE WATERS MD This examination was interpreted and the report reviewed and electronically signed by: KATIE WATERS MD on Jan 05 2025 10:55AM EST [id number] Normal [facility] XR Foot - right AP and Later al and obliqueon 01-05-2025 IMPRESSION: No radiographic evidence of acute osseous injury Tug Master: [facility] Transcribe Date/Time: Jan 05 2025 10:54A Dictated [...] the interphalangeal joints. DIVISION OF RADIOLOGY Provider, [facility] - 01/05/2025 * * *Final Report* * [...] No radiographic evidence of acute osseous injury Tug Master: [facility] Transcribe Date/Time: Jan 05 2025 10:54A Dictated by : KATIE WATERS MD This examination was interpreted and the report reviewed and electronically signed by: KATIE WATERS MD on Jan 05 2025 10:55AM EST [facility] Radiology Study observation (narrative) Carlos Burks XR Foot - right AP and Later al and obliqueOrdered By: [facility] Provider on 01-05-2025 [facility] Low Dose CT Lung Screeningon 01-01-[address] Lung Screening [facility] Services [address] [place], [place] [address] Low Dose CT Lung Screening MR#: [id number] Acct: [id number] Name: JENA RAMIREZ Rep #: [id number] : 1955 F 69 From: Monico Lopez MD PCP: Dr. Rito Camp MD Status: REG CLI Study: Low Dose CT Lung Screening Date of Exam: 01/01 Exam# [id number] Ordering Dr: Sierra Dee YELLOW PAGES SPACE SALESPERSON YELLOW PAGES SPACE SALESPERSON-C PROCEDURE: LOW DOSE CT LUNG SCREENING 01/01/2025 REASON FOR EXAM: SMOKER QUIT 2010 TECHNIQUE: Low Dose CT Lung screening without contrast. Coronal and Sagittal reconstruction series were provided. One or more dose reduction techniques were used (e.g., Automated exposure control, adjustment of the mA and/or kV according to patient size, use of iterative reconstruction technique). REFERENCE LINK: [employer] Lung-RADS RADIATION DOSE SUMMARY: CTDlvol: 2.0 mGy [...] artery calcification (CAC) is present Reading Location: [facility] CC: TRACI Dee; Dr. Rito Camp MD Tug Master: Signed Normal [facility] BD DXA - AXIAL SKELETONon BD DXA [...] years, Gender: Female SCANNER INFORMATION: DXA Model: [facility] [place] mAPPn C [address]253 Date Scanned: 12/28/2024 9:19 AM CLINICAL HISTORY: [...] FOR MORE INFORMATION ABOUT DIAGNOSIS AND TREATMENT: [facility] Center for Osteoporosis and Metabolic Bone Disease:? www.ccf.org/arthritis /osteo National Osteoporosis Foundation:? www.nof.org International Society of Clinical Densitometry www.iscd.org Tug Master: LEONARDO Transcribe Date/Time: Dec 28 2024 10:04A Dictated by : KATIE WATERS MD This examination was interpreted and the report reviewed and electronically signed by: KATIE WATERS MD on Dec 28 2024 10:06AM EST [id number] N -3.1 Normal [facility] BD DXA TRABECLR BONE SCORE ( TBS)on [...] years, Gender: Female SCANNER INFORMATION: DXA Model: [employer] - mAPPn C 08534 Date Scanned: 12/28/2024 9:19 AM CLINICAL HISTORY: [...] FOR MORE INFORMATION ABOUT DIAGNOSIS AND TREATMENT: [facility] Center for Osteoporosis and Metabolic Bone Disease:? www.ccf.org/arthritis /osteo National Osteoporosis Foundation:? www.nof.org International Society of Clinical Densitometry www.iscd.org Tug Master: LEONARDO Transcribe Date/Time: Dec 28 2024 10:04A Dictated by : KATIE WATERS MD This examination was interpreted and the report reviewed and electronically signed by: KATIE WATERS MD on Dec 28 2024 10:06AM EST [id number] N -3.1 Normal [facility] DXA Femur [T-score] Bone nadya hernandez 12-28-2024 * * *Final Report* * * DATE OF EXAM: Dec 28 2024 9:19AM [facility] 0801 - BD DXA TRABECLR BONE SCORE (TBS) / PROCEDURE REASON: Osteoporosis, unspecified osteoporosis type, unspecified pathological fracture p * * * * Physician Interpretation * * * * EXAMINATION: DXA BONE DENSITOMETRY BD DXA - AXIAL SKELETON, BD DXA TRABECLR BONE SCORE (TBS) PATIENT DEMOGRAPHICS: Age: 69 years, Gender: Female SCANNER INFORMATION: DXA Model: [employer] - mAPPn C 35500 Date Scanned: 12/28/2024 9:19 AM CLINICAL HISTORY: [...] Normal (> 1.310) DIVISION OF RADIOLOGY Provider, [facility] - 12/28/2024 * * *Final Report* * * DATE OF EXAM: Dec 28 2024 9:19AM [facility] 0801 - BD DXA TRABECLR BONE SCORE (TBS) / PROCEDURE REASON: Osteoporosis, unspecified osteoporosis type, unspecified pathological fracture p * * * * Physician Interpretation * * * * EXAMINATION: DXA BONE DENSITOMETRY BD DXA - AXIAL SKELETON, BD DXA TRABECLR BONE SCORE (TBS) PATIENT DEMOGRAPHICS: Age: 69 years, Gender: Female SCANNER INFORMATION: DXA Model: [employer] - mAPPn C 08645 Date Scanned: 12/28/2024 9:19 AM CLINICAL HISTORY: [...] FOR MORE INFORMATION ABOUT DIAGNOSIS AND TREATMENT: [facility] Center for Osteoporosis and Metabolic Bone Disease:? www.ccf.org/arthritis /osteo National Osteoporosis Foundation:? www.nof.org International Society of Clinical Densitometry www.iscd.org Tug Master: LEONARDO Transcribe Date/Time: Dec 28 2024 10:04A Dictated by : KATIE WATERS MD This examination was interpreted and the report reviewed and electronically signed by: KATIE WATERS MD on Dec 28 2024 10:06AM EST [facility] DXA Skeletal system.axial Vi ews for [...] years, Gender: Female SCANNER INFORMATION: DXA Model: [employer] - [employer] C [address]38 Date Scanned: 12/28/2024 9:19 AM CLINICAL HISTORY: [...] Normal (> 1.310) DIVISION OF RADIOLOGY Provider, [facility] - 12/28/2024 * * *Final Report* * [...] years, Gender: Female SCANNER INFORMATION: DXA Model: [employer] - mAPPn C 20712 Date Scanned: 12/28/2024 9:19 AM CLINICAL HISTORY: [...] FOR MORE INFORMATION ABOUT DIAGNOSIS AND TREATMENT: [facility] Center for Osteoporosis and Metabolic Bone Disease:? www.ccf.org/arthritis /osteo National Osteoporosis Foundation:? www.nof.org International Society of Clinical Densitometry www.iscd.org Tug Master: LEONARDO Transcribe Date/Time: Dec 28 2024 10:04A Dictated by : KATIE WATERS MD This examination was interpreted and the report reviewed and electronically signed by: KATIE WATERS MD on Dec 28 2024 10:06AM EST [facility] No Panel InformationOrdered By: [facility] Provider on 12-28-2024 LOWEST T-SCORE -3.1 [facility] No Panel Informationon 12-28 IMPRESSION: THE [...] FOR MORE INFORMATION ABOUT DIAGNOSIS AND TREATMENT: [facility] Center for Osteoporosis and Metabolic Bone Disease:? www.ccf.org/arthritis /osteo National Osteoporosis Foundation:? www.nof.org International Society of Clinical Densitometry www.iscd.org Tug Master: LEONARDO Transcribe Date/Time: Dec 28 2024 10:04A Dictated by : KATIE WATERS MD This examination was interpreted and the report reviewed and electronically signed by: KATIE WATERS MD on Dec 28 2024 10:06AM [facility] DIVISION OF RADIOLOGY Radiology Study observation (narrative) Carlos nguyen [facility] Gastroenterology Visit Repor ton 12-17-2024 Gastroenterology Visit Report [facility] Gastroenterology [address] [place] [address] OFFICE VISIT Date of Service: 12/17/24 MR#: [id number] Acct: [id number] Name: JENA RAMIREZ Rep #: [id number] : 1955 Provider: TRACI neil Age/Sex: 69/F [place] [facility] [place] Status: Signed Intake Vital Signs 09/15/24 08:02 Height 4 ft 9 in Weight: 92 lb BMI 19.9 BP 127/80 H Blood Pressure Location Lt brachial Position Sitting Respiration 20 H Pulse 85 Pulse Source Monitor Temp 97.0 F L Pulse Oximetry (%) 95 Oxygen Delivery Method room air Intake Visit Reasons: Gastroesophageal reflux disease (GERD) Chief Complaint: dysphagia Microfilming Document Preparer Required: No Is patient in pain?: No [...] #5 tabs 12/17/24 12/17/24 Rx peg 3350-sod sulf,rzhzq-bea-pzf See Rx Instructions PO .COMPLEX #2 12/17/24 12/17/24 Rx 178.7-7.3-0.5-1.12-0. 9 gram oral mL soln (Suflave) Have you fallen in the past year?: No Nurse's Note: Chokes easy. Had a swallow test here in October. [facility] Medical History Vitamin D toxicity Uterine [...] not included)... [facility] 12-02-2024 [facility] Telephone (FAMPWS) DIONY RAMIREZ ([id number]) 1955 F Date Time Provider Department 12/02/24 [facility] your visit today, we [...] [R89.2] 06 (more content not included)... [facility] Telephone (STEPHANIE) DIONY RAMIREZ ([id number]) 1955 F Date Time Provider Department 12/01/24 [facility] During your visit today, we recorded the following information about you: Kasey Becker LPN 12/01/2024 1:48 PM Signed Patient calling said she had swallowing study done at [facility] on 11/24/2024. She is upset that PCP has not gotten copy of the results yet. She called [facility] med recs dept yesterday and was told being faxed as she was talking to the lady. She talking about bringing her copy to the office and have copy made for PCP. She was told needs Gastro consult, she was hoping to stay with [facility] if PCP wants to give the referral. Please advise Alex Brown APRN.COMPOUNDING AND FINISHING SUPERVISOR 12/01/2024 2:49 PM Signed Please let patient [...] [R09.89] Order(s):CONSULT TO GASTROENTEROLOGY [9010] Order #: [id number]: 1 FUTURE Prescriptions as of 12/18/2024 - [...] (COVI*01/27/2021 M (more content not included)... Normal [facility] Modified Barium Swallow Stud [facility] 11-24-2024 Modified Barium Swallow Study [facility] Speech Pathology [address] [place] [address] Modified Barium Swallow Study MR#: [id number] Acct: [id number] Name: JENA RAMIREZ Rep #: [id number] : 1955 69 From: Krysta Tatum M.A., [facility] ORDER COOK Modified Barium Swallow Patient Information Study Date: 11/24/24 Study Time: 12:45 Direct Billable Minutes: 70 Total Minutes procedure reportin Diagnosis: Dysphagia R13.10 Referring Physician: Rito Camp Reason for Referral: assess swallow function, assess risk for aspiration, and determine recommendations for least restrictive diet textures and compensatory strategies to facilitate safe po intake. Medical History: Patient recently seen at [facility] for outpatient swallowing evaluation 10/20/2024 [...] and ph (more content not included)... Normal [facility] D[facility] RAMIRE[facility] ([id number]) 1955 F Date Time Provider Department 11/04/24 [...] and faxed to Dr. Montilla's office at [phone]. Called pt and notified that she should be able to contact Dr. Montilla's office for an appt tomorrow. Allergies As of Date: 11/04/2024 Noted Allergy Reaction FISH 06/23/2005 16 - Unknown HORSE/EQUINE CONTAINING PRODUCTS 08/30/2023 16 - Unknown LISINOPRIL 12/07/2015 3 - Cough SHELLFISH DERIVED 08/30/2023 16 - Unknown Date Reviewed: 10/01/2024 Reviewed by: iRto Camp MD - Fully Assessed Reason for Visit: Left Hip Pain [1555] Primary Visit Diagnosis:Pain in left hip [M25.552] Other Visit Diagnosis:Chronic bilateral low back pain with sciatica, sciatica laterality unspecified [M54.40, G89.29] Order(s):CONSULT TO CYNDEE MGT [19991208] Order #: [id number]: 1 FUTURE Prescriptions as of 11/04/2024 - [...] [N32.81] 09/01 (more content not included)... Normal [facility] CNPNon 10-26-2024 CNPN Telephone (ADMWST) DIONY RAMIREZ ([id number]) 1955 F Date Time Provider Department 10/26/24 RITO CAMP ADMWST During your visit today, we recorded the following information about you: Truman Campos 10/26/2024 1:21 PM Signed Patient is requesting her HIP xray from 08/03/24 be placed on a disc. Thank you. Elana Waller, PSS 10/26/2024 4:28 PM Signed CD READY FOR WEATHER ALGORITHM SCIENTIST AT [facility] RADIOLOGY Pt is aware Allergies As of [...] [M25.552] 09/29/2024 (more content not included)... Normal [facility] SP/HP.SP.Soheila 10-20-2024 SP/HP.SP.EV [facility] Speech Pathology [facility] [address] [place] [address] / REHABILITATION SERVICES INITIAL EVALUATION MR#: [id number] Acct: [id number] Name: JENA RAMIREZ Rep #: [id number] : 1955 69 From: Yossi Robison M.A., [facility] Referring Dr.: Dr. Rito Camp MD Status: R EG RCR Insurance: [employer] MEDICARE [employer] SELF PAY INSURANCE Visit History Visit Info Date of Eval: 10/20/24 Visit: 1 Recorder Helper Seismograph: KENZIE History Attending Doctor: Referring Doctor: Reason [...] current prescribed condition?: No Personal Preferred language: Nauruan Patient Allergies Allergies Allergies: Allergies Fish Containing [...] Yes Treatmen (more content not included)... Normal [facility] CNTHERAPYon 10-13-2024 CNTHERAPY OT/PT/Speech Visit (PTWS) BASIMDIONY SIMS ([id number]) 1955 F Date Time Provider Department 10/13/24 10:30 AM MARY ANN OSCAR PTWS Date Time Provider Department [place] 10/13/2024 10:30 AM [id number] ANN OSCAR PTWS [place] Reason for Visit: PT Discharge [752] [...] Tab Take one(1) tablet two(2) times daily. Investigator Operator: Addendum Therapy (PT/OT/Speech/Resp) ID: [id number] 10/13/2024 10:48 AM Author: MARY ANN OSCAR Signed by MARY ANN OSCAR PT on 10/13/2024 at 10:48 AM * * * This document replaces document [id number] * * * Document text: Program_ID:[id number] Access Code: [email or web address] URL: [email or web address] Date: 10-13-2024 Prepared By: Mary Ann Oscar [...] 4 sets - 10 reps ----- Normal [facility] THERAPY NTon 10-13-2024 THERAPY NT HNO ID: [id number] Author: MARY ANN OSCAR PT Service: ? Author Type: Physical Therapist Type: Therapy (PT/OT/Speech/Resp) Filed: 10/13/2024 10:48 Note Text: Program_ID:[id number] Access Code: [email or web address] URL: [email or web address]/ Date: 10-13-2024 Prepared By: Mary Ann Oscar [...] - 4 sets - 10 reps Normal [facility] CNOVon 10-01-2024 CN [facility] DIONY RAMIREZ ([id number]) 1955 F Date Time Provider Department 10/01/24 10:00 AM [facility] During your visit today, we [...] - General (Family Medicine) Suleman Gustafson as Hot Mill Worker Alex Brown APRN.LUIS FELIPE as Reflesher (Family Medicine) Shanita Green PA-C as Reflesher (Family Medicine) Dr. Epstein: Pin management Dr. [...] blood sugar 01/27/2021 Emphysema of lung ([facility]) 03/18/2015 Essential hypertension, benign 02/21/2015 Ex-smoker 01/27/2021 [...] by kala (more content not included)... Normal [facility] [id number] 09-29-2024 [id number] HNO ID: [id number] Author: MARY ANN OSCAR, PT Service: ? Author Type: Physical Therapist Type: [id number] Filed: 09/29/2024 12:43 Note Text: [facility] Physical Therapy Plan of Care Certification Patient Name: Diony Ramirez : 1955 [facility] #: [id number] Date: 09/29/2024 To: Shanita Green PA-C From Therapist: Mary Ann Oscar, PT RE: Patient Certification/ Recertification Your review, approval and electronic signature are required in order to comply with Payor: [facility] [employer] AND J [employer] / Plan: [employer] MEDICARE ADVANTAGE HMO / [...] Planned: 6 Planned Treatment Interventions: Therapeutic exercise (45001), Neuromuscular re-education (52861), Manual therapy (36343), Therapeutic activities (85925), Self-skilled nursing management (33567), Gait Training (63542) PLAN FOR NEXT VISIT: Pt. has $35 [...] reviewed the treatment plan for Diony Ramirez, [facility]# [id number] for the period of 09/29/24 -- 11/10/24, established on 09/29/2024. Signature certifies the need for therapy services. Normal [facility] CNTHERAPYon 09-29-2024 CNTHERAPY OT/PT/Speech Visit (PTWS) DIONY RAMIREZ ([id number]) 1955 F Date Time Provider Department 09/29/24 12:00 PM MARY ANN OSCAR PTWS Date Time Provider Department Center 09/29/2024 12:00 PM [id number] ANN OSCAR PTRAMRIEZ [facility] [facility] Reason for Visit: PT Eval [747] Primary [...] Tab Take one(1) tablet two(2) times daily. Investigator Operator: Therapy (PT/OT/Speech/Resp) ID: [id number] 09/29/2024 12:26 PM Author: MARY ANN OSCAR Signed by MARY ANN OSCAR PT on 09/29/2024 at 12:26 PM Document text: Program_ID:[id number] Access Code: [email or web address] URL: [email or web address] Date: 09-29-2024 Prepared By: Mray Ann Oscar Program Notes Exercises - Supine [...] 2 sets - 5 reps ----- Normal [facility] THERAPY NTon 09-29-2024 THERAPY NT HNO ID: [id number] Author: MARY ANN OSCAR, KIMANI Service: ? Author Type: Physical Therapist Type: Therapy (PT/OT/Speech/Resp) Filed: 09/29/2024 12:26 Note Text: Program_ID:[id number] Access Code: [email or web address] URL: [email or web address] Date: 09-29-2024 Prepared By: Mary Ann Oscar [...] - 2 sets - 5 reps Normal [facility] 25(OH)D3 [facility] 25-hydroxyvitamin D3 [Mass/Vol] 57.6 ng/mL Normal 31.0-80.0 [facility] Center Comment on above: Order Comment: Speci men Type: BLOOD SPECIMENOrdering Facility: [facility] Address: [address] [place] [address] Result Comment: Clas sification of 25 [place] Vitamin D status: Deficiency/Insufficiency: < or = 30 ng/ml. Sufficiency/Optimal Levels: 31-80 ng/mL Toxicity: > 100 ng/mL. Test performed by chemiluminescent immunoassay. Performed By: #### 1 989-3 ####[facility] LABCLIA [id number] [place] [address] [place] CBC W Auto Differential pane l (Bld)on 09-24-2024 Basophils (Bld) [#/Vol] 0.09 10*3/uL Normal <0.11 [facility] Comment on above: Order Comment: Speci men Type: BLOOD SPECIMENOrdering Facility: [facility] Address: [address] [place] [address] Performed By: #### 5 7021-8 ####[facility] LABCLIA [id number] [place] [address] [place] Basophils/100 WBC (Bld) 1.4 % Normal [facility] Comment on above: Order Comment: Speci men Type: BLOOD SPECIMENOrdering Facility: [facility] Address: [address] [place] [address] Performed By: #### 5 7021-8 ####[facility] LABCLIA [id number] [place] [address] [place] Differential cell count method Nom (Bld) Auto Normal [facility] Comment on above: Order Comment: Speci men Type: BLOOD SPECIMENOrdering Facility: [facility] Address: [address] [place] [address] Performed By: #### 5 7021-8 ####[facility]CLIA [id number] [place] [address] [place] Eosinophils (Bld) [#/Vol] 0.21 10*3/uL Normal <0.46 [facility] Comment on above: Order Comment: Speci men Type: BLOOD SPECIMENOrdering Facility: [facility] Address: [address] [place] [address] Performed By: #### 5 7021-8 ####[facility]CLIA [id number] [place] [address] [place] Eosinophils/100 WBC (Bld) 3.2 % Normal [facility] Comment on above: Order Comment: Speci men Type: BLOOD SPECIMENOrdering Facility: [facility] Address: [address] [place] [address] Performed By: #### 5 7021-8 ####[facility]CLIA [id number] [place] [address] [place] Erythrocyte distribution width (RBC) [Ratio] 12.8 % Normal 11.5-15.0 [facility] Comment on above: Order Comment: Speci men Type: BLOOD SPECIMENOrdering Facility: [facility] Address: [address] [place] [address] Performed By: #### 5 7021-8 ####[facility]CLIA [id number] [place] [address] [place] Hematocrit (Bld) [Volume fraction] 45.3 % Normal 36.0-46.0 [facility] Comment on above: Order Comment: Speci men Type: BLOOD SPECIMENOrdering Facility: [facility] Address: [address] [place] [address] Performed By: #### 5 7021-8 ####[facility]CLIA [id number] [place] [address] [place] Hemoglobin (Bld) [Mass/Vol] 14.7 g/dL Normal 11.5-15.5 [facility] Comment on above: Order Comment: Speci men Type: BLOOD SPECIMENOrdering Facility: [facility] Address: [address] [place] [address] Performed By: #### 5 7021-8 ####[facility]CLIA [id number] [place] [address] [place] Immature granulocytes (Bld) [#/Vol] 10*3/uL Normal <0.10 [facility] Comment on above: Order Comment: Speci men Type: BLOOD SPECIMENOrdering Facility: [facility] Address: [address] [place] [address] Performed By: #### 5 7021-8 ####[facility]CLIA [id number] [place] [address] [place] Immature granulocytes/100 WBC (Bld) 0.3 % Normal [facility] Comment on above: Order Comment: Speci men Type: BLOOD SPECIMENOrdering Facility: [facility] Address: [address] [place] [address] Performed By: #### 5 7021-8 ####[facility]CLIA [id number] [place] [address] [place] Lymphocytes (Bld) [#/Vol] 1.58 10*3/uL Normal 1.00-4.00 [facility] Comment on above: Order Comment: Speci men Type: BLOOD SPECIMENOrdering Facility: [facility] Address: [address] [place] [address] Performed By: #### 5 7021-8 ####[facility]CLIA [id number] [place] [address] [place] Lymphocytes/100 WBC (Bld) 24.1 % Normal [facility] Comment on above: Order Comment: Speci men Type: BLOOD SPECIMENOrdering Facility: [facility] Address: [address] [place] [address] Performed By: #### 5 7021-8 ####[facility] LABCLIA [id number] [place] [address] [place] MCH (RBC) [Entitic mass] 33.1 pg Normal 26.0-34.0 [facility] Comment on above: Order Comment: Speci men Type: BLOOD SPECIMENOrdering Facility: [facility] Address: [address] [place] [address] Performed By: #### 5 7021-8 ####[facility]CLIA [id number] [place] [address] [place] MCHC (RBC) [Mass/Vol] 32.5 g/dL Normal 30.5-36.0 [facility] Comment on above: Order Comment: Speci men Type: BLOOD SPECIMENOrdering Facility: [facility] Address: [address] [place] [address] Performed By: #### 5 7021-8 ####[facility] LABIA [id number] [place] [address] [place] MCV (RBC) [Entitic vol] 102.0 fL High 80.0-100.0 [facility] Comment on above: Order Comment: Speci men Type: BLOOD SPECIMENOrdering Facility: [facility] Address: [address] [place] [address] Performed By: #### 5 7021-8 ####[facility] LABIA [id number] [place] [address] [place] Monocytes (Bld) [#/Vol] 0.62 10*3/uL Normal <0.87 [facility] Comment on above: Order Comment: Speci men Type: BLOOD SPECIMENOrdering Facility: [facility] Address: [address] [place] [address] Performed By: #### 5 7021-8 ####[facility] LABIA [id number] [place] [address] [place] Monocytes/100 WBC (Bld) 9.5 % Normal [facility] Comment on above: Order Comment: Speci men Type: BLOOD SPECIMENOrdering Facility: [facility] Address: [address] [place] [address] Performed By: #### 5 7021-8 ####[facility]CLIA [id number] [place] [address] [place] Neutrophils (Bld) [#/Vol] 4.03 10*3/uL Normal 1.45-7.50 [facility] Comment on above: Order Comment: Speci men Type: BLOOD SPECIMENOrdering Facility: [facility] Address: [address] [place] [address] Performed By: #### 5 7021-8 ####[facility]CLIA [id number] [place] [address] [place] Neutrophils/100 WBC (Bld) 61.5 % Normal [facility] Comment on above: Order Comment: Speci men Type: BLOOD SPECIMENOrdering Facility: [facility] Address: [address] [place] [address] Performed By: #### 5 7021-8 ####[facility] LABCLIA [id number] [place] [address] [place] Nucleated RBC (Bld) [#/Vol] 10*3/uL Normal <0.01 [facility] Comment on above: Order Comment: Speci men Type: BLOOD SPECIMENOrdering Facility: [facility] Address: [address] [place] [address] Performed By: #### 5 7021-8 ####[facility] LABIA [id number] [place] [address] [place] Nucleated RBC/100 WBC (Bld) [Ratio] 0.0 /100 WBC Normal [facility] Comment on above: Order Comment: Speci men Type: BLOOD SPECIMENOrdering Facility: [facility] Address: [address] [place] [address] Performed By: #### 5 7021-8 ####[facility] LABIA [id number] [place] [address] [place] Platelet mean volume (Bld) [Entitic vol] 9.6 fL Normal 9.0-12.7 [facility] Comment on above: Order Comment: Speci men Type: BLOOD SPECIMENOrdering Facility: [facility] Address: [address] [place] [address] Performed By: #### 5 7021-8 ####[facility]CLIA [id number] [place] [address] [place] Platelets (Bld) [#/Vol] 293 10*3/uL Normal 150-400 [facility] Comment on above: Order Comment: Speci men Type: BLOOD SPECIMENOrdering Facility: [facility] Address: [address] [place] [address] Performed By: #### 5 7021-8 ####[facility] LABCLIA [id number] [address] [address] [place] RBC (Bld) [#/Vol] 4.44 10*6/uL Normal 3.90-5.20 [facility] Comment on above: Order Comment: Speci men Type: BLOOD SPECIMENOrdering Facility: [facility] Address: [address] [place] [address] Performed By: #### 5 7021-8 ####[facility] LABCLIA [id number] [place] [address] [place] WBC (Bld) [#/Vol] 6.55 10*3/uL Normal 3.70-11.00 [facility] Comment on above: Order Comment: Speci men Type: BLOOD SPECIMENOrdering Facility: [facility] Address: [address] [place] [address] Performed By: #### 5 7021-8 ####[facility] LABIA [id number] [place] [address] [place] Comprehensive metabolic 2000 panelon 09-24-2024 Albumin [Mass/Vol] 4.1 g/dL Normal 3.9-4.9 [facility] Comment on above: Order Comment: Speci men Type: BLOOD SPECIMENOrdering Facility: [facility] Address: [address] [place] [address] Performed By: #### 2 4323-8, 2132-9 ####[facility]CLIA [id number] [place] [address] [place] ALP [Catalytic activity/Vol] 66 U/L Normal 34-123 [facility] Comment on above: Order Comment: Speci men Type: BLOOD SPECIMENOrdering Facility: [facility] Address: [address] [place] [id number] Performed By: #### 2 43211-07, 2132-05 ####[facility] LABCLIA [id number] [address] [address] [place] ALT [Catalytic activity/Vol] 15 U/L Normal 7-38 [facility] Comment on above: Order Comment: Speci men Type: BLOOD SPECIMENOrdering Facility: [facility] Address: [address] [place] [id number] Performed By: #### 2 4323-04, 2132-05 ####[facility] LABCLIA [id number] [place] [address] [place] Anion gap [Moles/Vol] 10 mmol/L Normal 8-15 [facility] Comment on above: Order Comment: Speci men Type: BLOOD SPECIMENOrdering Facility: [facility] Address: [address] [place] [address] Performed By: #### 2 4323-04, 2132-05 ####[facility] LABCLIA [id number] [place] [address] [place] AST [Catalytic activity/Vol] 23 U/L Normal 13-35 [facility] Comment on above: Order Comment: Speci men Type: BLOOD SPECIMENOrdering Facility: [facility] Address: [address] [place] [id number] Performed By: #### 2 4323-04, 2132-05 ####[facility] LABCLIA [id number] [place] [id number] [place] Bilirubin [Mass/Vol] 0.5 mg/dL Normal 0.2-1.3 [facility] Comment on above: Order Comment: Speci men Type: BLOOD SPECIMENOrdering Facility: [facility] Address: [address] [place], [place] [address] Performed By: #### 2 4323-04, 2132-05 ####[facility]CLIA [id number] [facility] [address] [address] [place] Calcium [Mass/Vol] 8.8 mg/dL Normal 8.5-10.2 [facility] Comment on above: Order Comment: Speci men Type: BLOOD SPECIMENOrdering Facility: [facility] Address: [address] [place], [place] [address] Performed By: #### 2 4323-04, 2132-05 ####[facility] LABCLIA [id number] [facility] [place] [id number] [place] Chloride [Moles/Vol] 101 mmol/L Normal 98-107 [facility] Comment on above: Order Comment: Speci men Type: BLOOD SPECIMENOrdering Facility: [facility] Address: [address] [place] [address] Performed By: #### 2 4323-04, 2132-05 ####[facility] LABCLIA [id number] [place] [address] [place] CO2 [Moles/Vol] 26 mmol/L Normal 22-30 [facility] Comment on above: Order Comment: Speci men Type: BLOOD SPECIMENOrdering Facility: [facility] Address: [address] [place], [place] [address] Performed By: #### 2 4323-04, 2132-05 ####[facility] LABCLIA [id number] [place] [id number] [place] Creatinine [Mass/Vol] 0.67 mg/dL Normal 0.58-0.96 [facility] Comment on above: Order Comment: Speci men Type: BLOOD SPECIMENOrdering Facility: [facility] Address: [address] [place], [place] [address] Performed By: #### 2 43211-07, 2132-05 ####[facility] LABCLIA [id number] [place] [id number] [place] Creatinine and Glomerular filtration rate.predicted panel (S/P/Bld) 95 mL/min/1.73m??? Normal >=60 [facility] Comment on above: Order Comment: Crow chavarria Type: BLOOD SPECIMENOrdering Facility: [facility] Address: [address] [place] [address] Result Comment: Marlin mated Glomerular Filtration Rate [...] GFR. Performed By: #### 2 4322-8, 2132-05 ####[facility] LABCLIA [id number] [place] [address] [place] Glucose [Mass/Vol] 90 mg/dL Normal 74-99 [facility] Comment on above: Order Comment: Crow chavarria Type: BLOOD SPECIMENOrdering Facility: [facility] Address: [address] [place] [address] Result Comment: The [place] Diabetes [employer] (ADA) provides guidance for cutoff [...] Standards of Medical Care in Diabetes 2016, [place] [employer]. Diabetes Care. 2016.39(Suppl 1). Performed By: #### 2 4323-8, 2132-05 ####[facility] LABCLIA [id number] [place] [id number] [place] Potassium [Moles/Vol] 4.1 mmol/L Normal 3.7-5.1 [facility] Comment on above: Order Comment: Speci men Type: BLOOD SPECIMENOrdering Facility: [facility] Address: [address] [place] [phone] Performed By: #### 2 4323-04, 2132-05 ####[facility] LABCLIA [id number] [address] [address] [place] Protein [Mass/Vol] 6.5 g/dL Normal 6.3-8.0 [facility] Comment on above: Order Comment: Speci men Type: BLOOD SPECIMENOrdering Facility: [facility] Address: [address] [place], [place] [address] Performed By: #### 2 4323-04, 2132-05 ####[facility] LABCLIA [id number] [place] [address] [place] Sodium [Moles/Vol] 137 mmol/L Normal 136-144 [facility] Comment on above: Order Comment: Speci men Type: BLOOD SPECIMENOrdering Facility: [facility] Address: [address] [place], [place] [address] Performed By: #### 2 4323-04, 2132-05 ####[facility] LABCLIA [id number] [place] [address] [place] Urea nitrogen [Mass/Vol] 14 mg/dL Normal 7-21 [facility] Comment on above: Order Comment: Speci men Type: BLOOD SPECIMENOrdering Facility: [facility] Address: [address] [place], [place] [address] Performed By: #### 2 4323-04, 2132-05 ####[facility] LABCLIA [id number] [place] [id number] [place] HbA1c (Bld)on 09-24-2024 Average glucose Estimated from glycated hemoglobin (Bld) [Mass/Vol] 94 mg/dL Normal [facility] Comment on above: Order Comment: Speci men Type: BLOOD SPECIMENOrdering Facility: [facility] Address: [address] [place] [address] Result Comment: eAG: (Estimated average glucose) is a calculated value from HgbA1c and is product representative of the average blood glucose level in the last 2-3 month period. Performed By: #### 5 5454-3 ####[facility] LABCLIA [id number] [place] [address] [place] HbA1c (Bld) [Mass fraction] 4.9 % Normal 4.3-5.6 [facility] Comment on above: Order Comment: Speci men Type: BLOOD SPECIMENOrdering Facility: [facility] Address: [address] [place] [address] Result Comment: [place] Diabetes Association guidelines indicate that patients with HgbA1c in the range 5.7-6.4% are at increased risk for development of diabetes, and intervention by lifestyle modification may be beneficial. HgbA1c greater or equal to 6.5% is considered diagnostic of diabetes. Performed By: #### 5 5454-3 ####[facility] LABIA [id number] [place] [address] [place] Iron and Iron binding capaci ty panelon 09-24-2024 Iron [Mass/Vol] 96 ug/dL Normal 41-186 [facility] Comment on above: Order Comment: Speci men Type: BLOOD SPECIMENOrdering Facility: [facility] Address: [address] [place] [address] Performed By: #### L IPNF, 73069-2, 6-3, 68552-7 ####[facility] LABCLIA [id number] [place] [id number] [place] Iron binding capacity [Mass/Vol] 391 ug/dL High 232-386 [facility] Comment on above: Order Comment: Speci men Type: BLOOD SPECIMENOrdering Facility: [facility] Address: [address] [place] [address] Performed By: #### L IPNF, 46161-7, 6-3, 59048-8 ####[facility] LABCLIA [id number] [place] [address] [place] Iron/TIBC [Molar ratio] 24.6 % Normal 15.0-57.0 [facility] Comment on above: Order Comment: Speci men Type: BLOOD SPECIMENOrdering Facility: [facility] Address: [address] [place] [address] Performed By: #### L CECILIA, 77283-6, 3015-3, 68175-3 ####[facility] LABCLIA [id number] [place] [address] [place] LIPID PANEL, NONFASTINGon Cholesterol [Mass/Vol] 193 mg/dL Normal <200 [facility] Comment on above: Order Comment: Speci men Type: BLOOD SPECIMENOrdering Facility: [facility] Address: [address] [place] [address] Result Comment: <200 mg/dL, Desirable 200-239 mg/dL, Borderline high >239 mg/dL, High Performed By: #### L CECILIA, , 3015-3, 19276-4 ####[facility] LABCLIA [id number] [place] [address] [place] HDL CHOLESTEROL, NF 99 mg/dL Normal >39 [facility] Comment on above: Order Comment: Speci men Type: BLOOD SPECIMENOrdering Facility: [facility] Address: [address] [place] [address] Result Comment: 40-5 9 mg/dL, Acceptable >59 mg/dL, High: Negative risk factor for coronary heart disease <40 mg/dL, Low: Positive risk factor for coronary heart disease Performed By: #### L CECILIA, , 3015-3, 46429-7 ####[facility] LABCLIA [id number] [place] [id number] [place] LDL CHOLESTEROL, NF 79 mg/dL Normal <100 [facility] Comment on above: Order Comment: Speci men Type: BLOOD SPECIMENOrdering Facility: [facility] Address: [address] [place] [address] Result Comment: <100 mg/dL, Optimal 100-129 mg/dL, Near optimal/above optimal 130-159 mg/dL, Borderline high 160-189 mg/dL, High >189 mg/dL, Very high Secondary prevention optimal LDL Cholesterol levels are recommended to be < 70 mg/dL Performed By: #### L IPMARIA L, , 6-3, 82935-3 ####[facility] LABCLIA [id number] [address] [place] LDL/HDL RATIO, NF 0.80 mg/dL Normal <2.54 [facility] Comment on above: Order Comment: [facility] Type: BLOOD SPECIMENOrdering Facility: [facility] Address: [address] [place] [address] Result Comment: Refe rence: 1. National Cholesterol Education Program ATP III Guideline At-A-Glance Quick Desk Reference: National Heart, Lung, and Blood Lavina. National Institutes of Health. 2001: NIH Publication No. 01-3305. 2. An International Atherosclerosis Society position paper: global recommendations for the management of dyslipidemia: executive summary, Atherosclerosis. 2014: 232(2):410-413. Performed By: #### L CECILIA, , 3015-3, 81611-1 ####[facility] LABCLIA [id number] [place] [address] [place] NON HDL CHOL, NF 94 mg/dL Normal <130 [facility] Comment on above: Order Comment: [facility] Type: BLOOD SPECIMENOrdering Facility: [facility] Address: [address] [place] [address] Result Comment: <130 mg/dL, Optimal 130-159 mg/dL, Near optimal/above optimal 160-189 mg/dL, Borderline high 190-219 mg/dL, High >219 mg/dL, Very high Secondary prevention optimal non HDL Cholesterol levels are recommended to be <100 mg/dL Performed By: #### L IPNF, , 3015-3, 34273-8 ####[facility] LABCLIA [id number] [place] [id number] [place] T CHOL/HDL RATIO NF 1.95 mg/dL Normal <5.10 [facility] Comment on above: Order Comment: Speci men Type: BLOOD SPECIMENOrdering Facility: [facility] Address: [address] [place] [address] Performed By: #### L IPNF, , 3015-3, 91306-6 ####[facility] LABCLIA [id number] [place] [address] [place] TRIGLYCERIDES, NF 76 mg/dL Normal <150 [facility] Comment on above: Order Comment: Speci men Type: BLOOD SPECIMENOrdering Facility: [facility] Address: [address] [place] [address] Result Comment: <150 mg/dL, Normal 150-199 mg/dL, Borderline high 200-499 mg/dL, High >499 mg/dL, Very high Performed By: #### L IPNF, , 3, 86361-7 ####[facility] LABCLIA [id number] [place] [address] [place] VLDL CHOLESTEROL, NF 15 mg/dL Normal <30 [facility] Comment on above: Order Comment: Speci men Type: BLOOD SPECIMENOrdering Facility: [facility] Address: [address] [place] [address] Performed By: #### L IPNF, , 3, 34366-1 ####[facility] LABCLIA [id number] [place] [address] [place] Magnesium SerPl-mCncon 09-24 Magnesium [Mass/Vol] 2.2 mg/dL Normal 1.7-2.3 [facility] Comment on above: Order Comment: Speci men Type: BLOOD SPECIMENOrdering Facility: [facility] Address: [address] [place] [address] Performed By: #### L IPNF, 03937-7, 3016-3, 43108-2 ####[facility] LABCLIA [id number] [place] [address] [place] TSH SerPl-aCncon 09-24-2024 TSH Qn 1.160 m[IU]/L Normal 0.270-4.200 [facility] Comment on above: Order Comment: Speci men Type: BLOOD SPECIMENOrdering Facility: [facility] Address: [address] [place] [address] Performed By: #### L IPNF, 45231-6, 3016-3, 55176-1 ####[facility] LABIA [id number] [place] [address] [place] Urinalysis complete panel (U )on 09-24-2024 Bacteria LM.HPF (Urine sed) [#/Area] Negative Normal Negative [facility] Comment on above: Order Comment: Speci men Type: URINE SPECIMENOrdering Facility: [facility] Address: [address] [place] [address] Performed By: #### 2 4356-8 ####[facility] LABIA [id number] [place] [address] [place] Bilirubin Ql (U) Negative Normal Negative [facility] Comment on above: Order Comment: Speci men Type: URINE SPECIMENOrdering Facility: [facility] Address: [address] [place] [address] Performed By: #### 2 4356-8 ####[facility] LABIA [id number] [place] [address] [place] Clarity (Unsp spec) Clear Normal Clear [facility] Comment on above: Order Comment: Speci men Type: URINE SPECIMENOrdering Facility: [facility] Address: [address] [place] [address] Performed By: #### 2 4356-8 ####[facility] LABCLIA [id number] [place] [address] [place] Color (U) Yellow Normal Yellow [facility] Comment on above: Order Comment: Speci men Type: URINE SPECIMENOrdering Facility: [facility] Address: [address] [place] [address] Performed By: #### 2 4356-8 ####[facility] LABCLIA [id number] [place] [address] [place] [place] Epithelial cells LM.HPF (Urine sed) [#/Area] None Seen Normal [facility] Comment on above: Order Comment: Speci men Type: URINE SPECIMENOrdering Facility: [facility] Address: [address] [place] [address] Performed By: #### 2 4356-8 ####[facility] LABCLIA [id number] [address] [place] Glucose Test strip (U) [Mass/Vol] Negative Normal Negative [facility] Comment on above: Order Comment: Speci men Type: URINE SPECIMENOrdering Facility: [facility] Address: [address] [place] [address] Performed By: #### 2 4356-8 ####[facility] LABIA [id number] [place] [address] [place] Hemoglobin Ql (U) Negative Normal Negative [facility] Comment on above: Order Comment: Speci men Type: URINE SPECIMENOrdering Facility: [facility] Address: [address] [place] [address] Performed By: #### 2 4356-8 ####[facility] LABCLIA [id number] [place] [address] [place] Hyaline casts (Urine sed) [#/Area] 0 /[LPF] Normal 0 /LPF [facility] Comment on above: Order Comment: Speci men Type: URINE SPECIMENOrdering Facility: [facility] Address: [address] [place] [address] Performed By: #### 2 4356-8 ####[facility] LABCLIA [id number] [place] [address] [place] Ketones Ql (U) Negative Normal Negative [facility] Comment on above: Order Comment: Speci men Type: URINE SPECIMENOrdering Facility: [facility] Address: [address] [place] [address] Performed By: #### 2 4356-8 ####[facility] LABCLIA [id number] [place] [address] [place] Leukocyte esterase Test strip Ql (U) Negative Normal Negative [facility] Comment on above: Order Comment: Speci men Type: URINE SPECIMENOrdering Facility: [facility] Address: [address] [place] [address] Performed By: #### 2 4356-8 ####[facility] LABCLIA [id number] [place] [address] [place] Nitrite Ql (U) Negative Normal Negative [facility] Comment on above: Order Comment: Speci men Type: URINE SPECIMENOrdering Facility: [facility] Address: [address] [place] [address] Performed By: #### 2 4356-8 ####[facility] LABCLIA [id number] [place] [address] [place] pH (U) 8.5 [pH] High <8.5 [facility] Comment on above: Order Comment: Speci men Type: URINE SPECIMENOrdering Facility: [facility] Address: [address] [place] [address] Performed By: #### 2 4356-8 ####[facility] LABCLIA [id number] [place] [address] [place] Protein (U) [Mass/Vol] Trace Abnormal Negative [facility] Comment on above: Order Comment: Speci men Type: URINE SPECIMENOrdering Facility: [facility] Address: [address] [place] [address] Performed By: #### 2 4356-8 ####[facility] LABIA [id number] [place] [address] [place] RBC LM.HPF (Urine sed) [#/Area] 0-2 /HPF Normal 0-2 /HPF [facility] Comment on above: Order Comment: Speci men Type: URINE SPECIMENOrdering Facility: [facility] Address: [address] [place] [address] Performed By: #### 2 4356-8 ####[facility] [id number] [place] [address] [place] Specific gravity (U) [Rel density] 1.015 Normal 1.005-1.030 [facility] Comment on above: Order Comment: Speci men Type: URINE SPECIMENOrdering Facility: [facility] Address: [address] [place] [address] Performed By: #### 2 4356-8 ####[facility] [id number] [place] [address] [place] Urobilinogen Ql (U) 0.2 EU/dL Normal 0.2-1.0 EU/dL [facility] Comment on above: Order Comment: Speci men Type: URINE SPECIMENOrdering Facility: [facility] Address: [address] [place] [address] Performed By: #### 2 4356-8 ####[facility] LABIA [id number] [place] [address] [place] WBC LM.HPF (Urine sed) [#/Area] 0-5 /HPF Normal 0-5 /HPF [facility] Comment on above: Order Comment: Speci men Type: URINE SPECIMENOrdering Facility: [facility] Address: [address] [place] [address] Performed By: #### 2 4356-8 ####[facility] LABCLIA [id number] [place] [id number] [place] Vit B12 SerPl-mCncon 01-23-2 025 Cobalamin (Vitamin B12) [Mass/Vol] 1367 pg/mL High 232-1245 [facility] Comment on above: Order Comment: Speci men Type: BLOOD SPECIMENOrdering Facility: [facility] Address: [address] [place] [address] Performed By: #### 2 4323-8, 2132-9 ####[facility] LABCLIA [id number] [address] [place] CNPKinsey 09-15-2024 CNPN Telephone (FAMPWS) DOINY RAMIREZ ([id number]) 1955 F Date Time Provider Department 09/15/24 [facility] During your visit today, we recorded the following information about you: Kasey Becker LPN 09/15/2024 1:12 PM Signed Patient calling she had appt today in Pulmonary office with Letha Emery [employer] SALESPERSON at Dr Suleman Gustafson office. Asking for a copy of the CR Chest report faxed to [phone]. Printed report from 12/2022 and faxed as [...] Status:Closed by KASEY BECKER on 09/15/24 Normal [facility] Pulmonary Visit Reporton Pulmonary Visit Report [facility] Pulmonary Medicine of [address] [place] [address] OFFICE VISIT Date of Service: 09/15/24 MR#: [id number] Acct: [id number] Name: JENA RAMIREZ Rep #: [id number] : 1955 Provider: Letha Emery NP Age/Sex: 69/F [facility] Status: Signed Assessment and Plan Assessment [...] asthma a (more content not included)... [facility] Telephone (STEPHANIE) DIONY RAMIREZ ([id number]) 1955 F Date Time Provider Department 09/08/24 [...] presence [M81.0] Order(s):VITAMIN B12 [SQB12] Order #: [id number] FUTURE COMPREHENSIVE METABOLIC PANEL [SQCMP] Order #: [id number] FUTURE THYROID STIMULATING HORMONE [SQTSH] Order #: [id number] FUTURE URINALYSIS, WITH MICROSCOPIC [SQUAWMIC] Order #: [id number] FUTURE LIPID PANEL, NONFASTING [SQLIPNF] Order #: [id number] FUTURE MAGNESIUM [SQMG1] Order #: [id number] FUTURE COMPLETE BLOOD COUNT AND DIFFERENTIAL [SQCBCDIF] Order #: [id number] FUTURE HEMOGLOBIN A1C [LTYYK2X] Order #: [id number] FUTURE IRON AND TIBC [SQIRON] Order #: [id number] FUTURE VITAMIN D 25 HYDROXY [SQVITD] Order #: [id number] FUTURE Prescriptions as of 09/08/2024 - Dextromethorphan-guai [...] anogenital infection*06/ (more content not included)... Normal [facility] DION[facility] RAMIRE[facility] ([id number]) 1955 F Date Time Provider Department 08/05/24 [facility] During your visit today, we recorded [...] Order(s):CONSULT TO PHYSICAL THERAPY [9032] Order #: [id number]: 1 FUTURE Prescriptions as of 08/07/2024 - [...] findings [R89.2] (more content not included)... 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 Normal [facility] XR HIP 3V PELV+ AP/LAT LTon 08-03-2024 [...] lumbar spine. IMPRESSION: Mild left hip osteoarthritis. Tug Master: PSCB Transcribe Date/Time: Aug 05 2024 5:42A Dictated by : CATHLEEN KYLE MD This examination was interpreted and the report reviewed and electronically signed by: CATHLEEN KYLE MD on Aug 05 2024 5:42AM EST [id number] N Normal [facility] CNOVon 07-31-2024 CNOV Office Visit (UCWSTR ) DIONY RAMIERZ ([id number]) 1955 F Date Time Provider Department 07/31/24 [...] daily at (more content not included)... Normal [facility] XR CHEST 2V FRONTAL/LATon XR CHEST 2V [...] for pneumonia or aspiration. Please clinically correlate. Tug Master: PSCB Transcribe Date/Time: Jul 31 2024 11:30A Dictated by : LAURIE KAYE MD This examination was interpreted and the report reviewed and electronically signed by: LAURIE KAYE MD on Jul 31 2024 11:32AM EST [id number] N Normal [facility] XR Chest PA and Lateralon IMPRESSION: Small patchy opacities in the lower lobe, raising concern for pneumonia or aspiration. Please clinically correlate. Tug Master: LEONARDO Transcribe Date/Time: Jul 31 2024 11:30A Dictated by : LAURIE KAYE MD This examination was interpreted and the report reviewed and electronically signed by: LAURIE KAYE MD on Jul 31 2024 11:32AM [facility] DIVISION OF RADIOLOGY * * [...] and degenerative changes. DIVISION OF RADIOLOGY Provider, [facility] - 07/31/2024 * * *Final Report* * [...] for pneumonia or aspiration. Please clinically correlate. Tug Master: LEONARDO Transcribe Date/Time: Jul 31 2024 11:30A Dictated by : LAURIE KAYE MD This examination was interpreted and the report reviewed and electronically signed by: LAURIE KAYE MD on Jul 31 2024 11:32AM EST [facility] Radiology Study observation (narrative) [facility] XR Chest PA and LateralOrder ed By: Ccf Provider on 07-31-2024 [facility] Pulmonary Visit Reporton Pulmonary Visit Report [facility] of [place] [address] [place] [address] OFFICE VISIT Date of Service: 07/21/24 MR#: [id number] Acct: [id number] Name: JENA RAMIREZ Rep #: [id number] : 1955 Provider: Letha Emery NP Age/Sex: 69/F [place] [facility] Status: Signed Assessment and Plan Assessment and [...] L T (more content not included)... Normal [facility] UA DIP, URINE (POC)on 2023 BILIRUBIN UA (POCT) Negative Negative [facility] CLARITY UA (POCT) Clear [facility] COLOR UA (POCT) [facility] GLUCOSE UA (POCT) Negative Negative mg/dL [facility] Hemoglobin Ql (U) Small Abnormal Negative [facility] Interpretation and review of laboratory results Abnormal [facility] KETONE UA (POCT) Negative Negative mg/dL [facility] LEUKOCYTES UA (POCT) Moderate Abnormal Negative [facility] NITRITE UA (POCT) Negative Negative [facility] PH UA (POCT) 6.0 4.5 - 8.0 [facility] Protein Ql (U) Negative Negative mg/dL [facility] SPECIFIC GRAVITY UA (POCT) <=1.005 Abnormal 1.005 - 1.030 [facility] UROBILINOGEN UA (POCT) 0.2 Mary Ellen l E.U./dL [facility] Location:[address], [place], [address] [facility] POINT OF CARE [facility] UA DIP, URINE (POC)on 2023 BILIRUBIN UA (POCT) Negative Negative [facility] CLARITY UA (POCT) [facility] COLOR UA (POCT) [facility] GLUCOSE UA (POCT) Negative Negative mg/dL [facility] Hemoglobin Ql (U) Negative Negative [facility] KETONE UA (POCT) Negative Negative mg/dL [facility] LEUKOCYTES UA (POCT) Negative Negative [facility] NITRITE UA (POCT) Negative Negative [facility] PH UA (POCT) 7.0 4.5 - 8.0 [facility] Protein Ql (U) Negative Negative mg/dL [facility] SPECIFIC GRAVITY UA (POCT) 1.010 1.005 - 1.030 [facility] UROBILINOGEN UA (POCT) 0.2 Mary Ellen l E.U./dL [facility] Location:[facility], [address] [place] [address], [place], [place], [id number] [place] [address] POINT OF CARE [facility] MR Shoulder - left LISET cabral 04-24-2024 IMPRESSION: Rotator cuff tendinosis without tear. Long head of biceps tendon sheath effusion that could potentially relate to tenosynovitis. Tug Master: PSCB Transcribe Date/Time: Apr 24 2024 10:49A Dictated by : CATHLEEN KYLE MD This examination was interpreted and the report reviewed and electronically signed by: CATHLEEN KYLE MD on Apr 24 2024 10:58AM [facility] DIVISION OF RADIOLOGY * * *Final Report* * * DATE OF EXAM: Apr 24 2024 10:00AM [facility] 0239 - MRI SHOULDER WO IVCON [...] No additional findings. DIVISION OF RADIOLOGY Provider, [facility] * * *Final Report* [...] effusion that could potentially relate to tenosynovitis. Tug Master: LEONARDO Transcribe Date/Time: Apr 24 2024 10:49A Dictated by : CATHLEEN KYLE MD This examination was interpreted and the report reviewed and electronically signed by: CATHLEEN KYLE MD on Apr 24 2024 10:58AM EST [facility] Radiology Study observation (narrative) [facility] MR Shoulder - left WO contra stOrdered By: Ccf Provider on 04-24-2024 [facility] XR Chest PA and Lateralon IMPRESSION: Overall findings unchanged. Tug Master: LEONARDO Transcribe Date/Time: Apr 14 2024 10:45A [...] and degenerative changes. [facility] * * *Final Report* [...] degenerative changes. IMPRESSION IMPRESSION: Overall findings unchanged. Tug Master: LEONARDO Transcribe Date/Time: Apr 14 2024 10:45A Dictated by : LAURIE KAYE MD This examination was interpreted and the report reviewed and electronically signed by: LAURIE KAYE MD on Apr 14 2024 10:46AM EST [facility] Radiology Study observation (narrative) [facility] XR Chest PA and LateralOrder ed By: Ccf Provider on 04-14-2024 [facility] No Panel Informationon 03-18 IMPRESSION: No acute osseous abnormality. Mild LEFT glenohumeral and acromioclavicular osteoarthritis. Tug Master: LEONARDO Transcribe Date/Time: Mar 18 2024 12:04P Dictated by : GARETH ESCAMILLA DO This examination was interpreted and the report reviewed and electronically signed by: GARETH ESCAMILLA DO on Mar 18 2024 12:08PM [facility] DIVISION OF RADIOLOGY Radiology Study observation (narrative) [facility] No Panel InformationOrdered By: Ccf Provider on 03-18-2024 [facility] XR Clavicle - left 2 Viewson [...] the cervicothoracic spine. DIVISION OF RADIOLOGY Provider, [facility] - 03/18/2024 * * *Final [...] abnormality. Mild LEFT glenohumeral and acromioclavicular osteoarthritis. Tug Master: LEONARDO Transcribe Date/Time: Mar 18 2024 12:04P Dictated by : GARETH ESCAMILLA DO This examination was interpreted and the report reviewed and electronically signed by: GARETH ESCAMILLA DO on Mar 18 2024 12:08PM [facility] XR Shoulder - left 3 Viewson [...] the cervicothoracic spine. DIVISION OF RADIOLOGY Provider, [facility] - 03/18/2024 * * *Final Report* * [...] abnormality. Mild LEFT glenohumeral and acromioclavicular osteoarthritis. Tug Master: PSCB Transcribe Date/Time: Mar 18 2024 12:04P Dictated by : GARETH ESCAMILLA DO This examination was interpreted and the report reviewed and electronically signed by: GARETH ESCAMILLA DO on Mar 18 2024 12:08PM [facility] COVID & INFLUENZA A/B & RSV NAAT, ROUTINEon 12-23-2023 FLUAV RNA THOMAS+probe Ql (Unsp spec) Not detected Not Detected [facility] FLUBV RNA THOMAS+probe Ql (Unsp spec) Not detected Not Detected [facility] Interpretation and review of laboratory results Normal [facility] RSV A RNA THOMAS+probe Ql (Unsp spec) Not detected Not Detected [facility] SARS-CoV-2 (COVID-19) RNA THOMAS+probe Ql (Resp) Not detected See comment [facility] Comment on above: The method used is R T-PCR or an equivalent NAAT method. Reference Range (the expected result in uninfected individuals): Not detected For upper respirator y tract samples, this test has been authorized by FDA under Emergenecy Use Authorization (EUA). For lower respiratory tract samples, this test was developed and its performance characteristics determined by [facility]'s [facility] ([facility]). It has not been cleared or approved by the FDA. [facility] is regulated under CLIA as qualified to perform high-complexity testing. This test is used for clinical purposes. It should not be regarded as investigational or for research. Test performed by [facility], [facility] [place], [address] [place] [address]. [facility] XR Chest PA and Lateralon IMPRESSION: Interstitial prominence in the lower lungs. No pleural effusion or consolidation. Tug Master: LEONARDO Transcribe Date/Time: Dec 23 2023 11:12A Dictated by : DELMI AYALA MD This examination was interpreted and the report reviewed and electronically signed by: DELMI AYALA MD on Dec 23 2023 11:13AM [facility] DIVISION OF RADIOLOGY * * [...] spine DIVISION OF RADIOLOGY Provider, [facility] - 12/23/2023 * * *Final Report* [...] lower lungs. No pleural effusion or consolidation. Tug Master: LEONARDO Transcribe Date/Time: Dec 23 2023 11:12A Dictated by : DELMI AYALA MD This examination was interpreted and the report reviewed and electronically signed by: DELMI AYALA MD on Dec 23 2023 11:13AM EST [facility] Radiology Study observation (narrative) [facility] XR Chest PA and LateralOrder ed By: Ccf Provider on 12-23-2023 [facility] No Panel Informationon 10-15 Radiology Study observation (narrative) [facility] XR Cervical spine AP and Lat eral and obliqueon 10-15-2023 IMPRESSION: DEGENERATIVE CHANGE AND ALIGNMENT ABNORMALITIES DESCRIBED Tug Master: LEONARDO Transcribe Date/Time: Oct 15 2023 2:46P Dictated by : CECILIO GAVIRIA MD This examination was interpreted and the report reviewed and electronically signed by: CECILIO GAVIRIA MD on Oct 15 2023 2:48PM [facility] DIVISION OF RADIOLOGY * * [...] or prevertebral swelling. DIVISION OF RADIOLOGY Provider, [facility] - 10/15/2023 * * *Final Report* * [...] IMPRESSION: DEGENERATIVE CHANGE AND ALIGNMENT ABNORMALITIES DESCRIBED Tug Master: [facility] Transcribe Date/Time: Oct 15 2023 2:46P Dictated by : CECILIO GAVIRIA MD This examination was interpreted and the report reviewed and electronically signed by: CECILIO GAVIRIA MD on Oct 15 2023 2:48PM EST [facility] XR Cervical spine AP and Lat eral and obliqueOrdered By: Ccf Provider on 10-15-2023 [facility] XR Shoulder - right 3 Viewso n 10-15-2023 IMPRESSION: No acute fracture. Degenerative disease of the right shoulder. Tug Master: PSCB Transcribe Date/Time: Oct 15 2023 4:59P Dictated by : DELMI AYALA MD This examination was interpreted and the report reviewed and electronically signed by: DELMI AYALA MD on Oct 15 2023 5:00PM [facility] DIVISION OF RADIOLOGY * * [...] joint space narrowing. DIVISION OF RADIOLOGY Provider, [facility] - 10/15/2023 * * *Final Report* * [...] fracture. Degenerative disease of the right shoulder. Tug Master: LEONARDO Transcribe Date/Time: Oct 15 2023 4:59P Dictated by : DELMI AYALA MD This examination was interpreted and the report reviewed and electronically signed by: DELMI AYALA MD on Oct 15 2023 5:00PM [facility] XR Lumbar spine Views W flex ion and W extensionon 08-21-2023 IMPRESSION: Multilevel lumbar degenerative findings with postsurgical changes. At L3-4 there is 2 mm spondylolisthesis with flexion and anatomic positioning and neutral and extension. The L5-S1 level. There is mild spondylolisthesis which slightly increases with flexion. Tug Master: LEONARDO Transcribe Date/Time: Aug 21 2023 3:53P Dictated by : VELIA RIVERA MD This examination was interpreted and the report reviewed and electronically signed by: VELIA RIVERA MD on Aug 21 2023 4:00PM [facility] DIVISION OF RADIOLOGY * * [...] Anatomic Variants: None. DIVISION OF RADIOLOGY Provider, [facility] Cristal [facility] - 08/21/2023 * * *Final Report* [...] mild spondylolisthesis which slightly increases with flexion. Tug Master: LEONARDO Transcribe Date/Time: Aug 21 2023 3:53P Dictated by : VELIA RIVERA MD This examination was interpreted and the report reviewed and electronically signed by: VELIA RIVERA MD on Aug 21 2023 4:00PM EST [facility] XR Lumbar spine Views W flex ion and W extensionOrdered By: Ccf Provider on 08-21-2023 [facility] XR HIP BILATERAL 5V PEL/AP/L AT EACH HIPon 08-20-2023 IMPRESSION: Mild degenerative changes at the hips with no acute fractures seen Tug Master: LEONARDO Transcribe Date/Time: Aug 20 2023 6:58P Dictated by : CELESTINO MOTA MD This examination was interpreted and the report reviewed and electronically signed by: CELESTINO MOTA MD on Aug 20 2023 6:59PM [facility] DIVISION OF RADIOLOGY * * [...] the left hip DIVISION OF RADIOLOGY Provider, [facility] - 08/20/2023 * * *Final Report* * [...] the hips with no acute fractures seen Tug Master: LEONARDO Transcribe Date/Time: Aug 20 2023 6:58P Dictated by : CELESTINO MOTA MD This examination was interpreted and the report reviewed and electronically signed by: CELESTINO MOTA MD on Aug 20 2023 6:59PM [facility] No Panel Informationon 08-15 Radiology Study observation (narrative) [facility] CBC W Auto Differential pane l (Bld)on 06-04-2023 Basophils (Bld) [#/Vol] 0.06 10*3/uL <0.11 k/uL [facility] Basophils/100 WBC (Bld) 0.5 % [facility] Differential cell count method Nom (Bld) Auto [facility] Eosinophils (Bld) [#/Vol] 0.10 10*3/uL <0.46 k/uL [facility] Eosinophils/100 WBC (Bld) 0.9 % [facility] Erythrocyte distribution width (RBC) [Ratio] 12.4 % 11.5 - 15.0 % [facility] Hematocrit (Bld) [Volume fraction] 45.7 % 36.0 - 46.0 % [facility] Hemoglobin (Bld) [Mass/Vol] 14.9 g/dL 11.5 - 15.5 g/dL [facility] Immature granulocytes (Bld) [#/Vol] <0.10 k/uL [facility] Immature granulocytes/100 WBC (Bld) 0.2 % [facility] Lymphocytes (Bld) [#/Vol] 1.43 10*3/uL 1.00 - 4.00 k/uL [facility] Lymphocytes/100 WBC (Bld) 12.7 % [facility] MCH (RBC) [Entitic mass] 33.6 pg 26. 0 - 34.0 pg [facility] MCHC (RBC) [Mass/Vol] 32.6 g/dL 30.5 - 36.0 g/dL [facility] MCV (RBC) [Entitic vol] 102.9 fL High 80.0 - 100.0 fL [facility] Monocytes (Bld) [#/Vol] 1.03 10*3/uL High <0.87 k/uL [facility] Monocytes/100 WBC (Bld) 9.2 % C [facility] Neutrophils (Bld) [#/Vol] 8.61 10*3/uL High 1.45 - 7.50 k/uL [facility] Neutrophils/100 WBC (Bld) 76.5 % [facility] Nucleated RBC (Bld) [#/Vol] <0.01 k/uL [facility] Nucleated RBC/100 WBC (Bld) [Ratio] 0.0 /100 WBC [facility] Platelet mean volume (Bld) [Entitic vol] 9.8 fL 9.0 - 12.7 fL [facility] Platelets (Bld) [#/Vol] 262 10*3/uL 150 - 400 k/uL [facility] [facility] RBC (Bld) [#/Vol] 4.44 10*6/uL 3.90 - 5.2 0 m/uL [facility] WBC (Bld) [#/Vol] 11.25 10*3/uL High 3.70 - 11 .00 k/uL [facility] Absolute lymphocyte countOrd ered By: Mick Pelletier on 06-02-2023 Lymphocytes Auto (Unsp spec) [#/Vol] 1.34 10*3/uL 0.83-4.51 [facility] Basophil percentageOrdered B y: Mick Pelletier on 06-02-2023 Basophils/100 WBC (Bld) 0.7 % 0-1 [facility] Chloride [Moles/Vol] 110 mmol/L 98-[address] [facility] Eosinophils/100 WBC (Bld) 1.3 % 0-5 [facility] Glucose [Mass/Vol] 74 mg/dL 74-106 [facility] Neutrophils (Bld) [#/Vol] 7.9 10*3/uL 2.0-7.7 [facility] Neutrophils/100 WBC (Bld) 74.5 % 47-70 [facility] Potassium [Moles/Vol] 3.6 mmol/L 3.5-5.1 [facility] Sodium [Moles/Vol] 142 mmol/L 136-145 [facility] WBC (Bld) [#/Vol] 10.6 10*3/uL 4.4-11.0 [facility] Blood erythrocytes count (nu mber/volume)Ordered By: Mick Pelletier on 06-02-2023 RBC (Bld) [#/Vol] 4.22 10*6/uL 4.2-5.4 [facility] Blood hemoglobin measurement (mass/volume)Ordered By: Mick Pelletier on 06-02-2023 Hemoglobin (Bld) [Mass/Vol] 14.1 g/dL 12.0-15.0 [facility] Blood lymphocytes/100 leukoc ytesOrdered By: Mick Pelletier on 06-02-2023 Lymphocytes/100 WBC (Bld) 12.6 % 19-41 [facility] Blood monocytes/100 leukocyt esOrdered By: Mick Pelletier on 06-02-2023 Monocytes/100 WBC (Bld) 10.5 % 0-10 [facility] Blood platelet mean volumeOr dered By: Mick Pelletier on 06-02-2023 Platelet mean volume (Bld) [Entitic vol] 9.4 fL 6.2-12.0 [facility] Determination of erythrocyte mean corpuscular volume (MCV)Ordered By: Mick Pelletier on 06-02-2023 MCV (RBC) [Entitic vol] 102.8 fL 81-99 [facility] Hematocrit Auto (Bld) [Volum e fraction]Ordered By: Mick Pelletier on 06-02-2023 Hematocrit (Bld) [Volume fraction] 43.4 % 37-47 [facility] Laboratory - Chemistry and C hemistry - challengeOrdered By: Mick Pelletier on 06-02-2023 CO2 [Moles/Vol] 23.0 mmol/L 21.0-32.0 [facility] Urea nitrogen/Creatinine [Mass ratio] 27.7 mg/mg 10-20 [facility] Laboratory - Hematology and Cell countsOrdered By: Mick Pelletier on 06-02-2023 Erythrocyte distribution width (RBC) [Entitic vol] 47.8 fL 35.1-43.9 [facility] Erythrocyte distribution width (RBC) [Ratio] 12.6 % 11.6-14.6 [facility] Immature granulocytes/100 WBC (Bld) 0.400 % 0.0-0.9 [facility] Comment on above: IG% - Immature Granu locytes (promyelocytes, myelocytes and metamyelocytes) > 1% indicates that a LEFT SHIFT is Present. MCH (RBC) [Entitic mass] 33.4 pg 27.0-32.0 [facility] Nucleated RBC/100 WBC (Bld) [Ratio] 0 % 0-5 [facility] MCHC Auto (RBC) [Mass/Vol]Or dered By: Mick Pelletier on 06-02-2023 MCHC (RBC) [Mass/Vol] 32.5 g/dL 32-36 [facility] No Panel InformationOrdered By: Mick Pelletier on 06-02-2023 Estimated Creatinine Clearance Calc 34.79 ml/min [facility] Estimated GFR (MDRD) Amer 134 mL/min >60 [facility] Comment on above: GFR Calc Estimated GFR (MDRD) Non-Af Amer 111 mL/min >60 [facility] Comment on above: Non- GFR Calc Platelets bldOrdered By: Dontae Pelletier on 06-02-2023 Platelets (Bld) [#/Vol] 266 10*3/uL 150-450 [facility] Serum or plasma calcium alonso urement (mass/volume)Ordered By: Mick Pelletier on 06-02-2023 Calcium [Mass/Vol] 8.0 mg/dL 8.5-10.1 [facility] Serum or plasma creatinine m easurement (mass/volume)Ordered By: Mick Pelletier on 06-02-2023 Creatinine [Mass/Vol] 0.58 mg/dL 0.55-1.02 [facility] Comment on above: The validity of the calculated GFR & GFRAA in patients over 70 years has not been determined. Clinical correlation is essential. Serum or plasma urea nitroge n measurement (mass/volume)Ordered By: Mick Pelletier on 06-02-2023 Urea nitrogen [Mass/Vol] 16 mg/dL 7-18 [facility] Thin prep Papanicolaou smear with manual screeningOrdered By: Mick Pelletier on 06-02-2023 Thin prep Papanicolaou smear with manual screening 9 5-15 [facility] Absolute lymphocyte countOrd ered By: Tyler Green on 05-31-2023 Lymphocytes Auto (Unsp spec) [#/Vol] 1.89 10*3/uL 0.83-4.51 [facility] Basophil percentageOrdered B y: Tyler Green on 05-31-2023 Basophil percentage 0 SEEN /hpf 0-[address] [facility] Basophils/100 WBC (Bld) 0.6 % 0-1 [facility] Chloride [Moles/Vol] 101 mmol/L 98-[address] [facility] Eosinophils/100 WBC (Bld) 1.4 % 0-5 [facility] Glucose [Mass/Vol] 101 mg/dL 74-106 [facility] Comment on above: Fasting Glucose resu lt from 100 to 125 mg/dL suggests IMPAIRED HOMEOSTASIS per A.D.A. criteria. Lactate [Moles/Vol] 1.0 mmol/L 0.4-2.0 [facility] Neutrophils (Bld) [#/Vol] 10.6 10*3/uL 2.0-7.7 [facility] Neutrophils/100 WBC (Bld) 76.5 % 47-70 [facility] Potassium [Moles/Vol] 4.1 mmol/L 3.5-5.1 [facility] Comment on above: Slight Hemolysis, Re sult may be falsely increased. Sodium [Moles/Vol] 135 mmol/L 136-145 [facility] WBC (Bld) [#/Vol] 13.8 10*3/uL 4.4-11.0 [facility] Bilirubin Test strip Ql (U)O rdered By: Tyler Green on 05-31-2023 Bilirubin Ql (U) Negative Negative [facility] Blood erythrocytes count (nu mber/volume)Ordered By: Tyler Green on 05-31-2023 RBC (Bld) [#/Vol] 4.61 10*6/uL 4.2-5.4 [facility] Blood hemoglobin measurement (mass/volume)Ordered By: Tyler Green on 05-31-2023 Hemoglobin (Bld) [Mass/Vol] 15.6 g/dL 12.0-15.0 [facility] Blood lymphocytes/100 leukoc ytesOrdered By: Tyler Green on 05-31-2023 Lymphocytes/100 WBC (Bld) 13.7 % 19-41 [facility] Blood monocytes/100 leukocyt esOrdered By: Tyler Green on 05-31-2023 Monocytes/100 WBC (Bld) 7.4 % 0-10 [facility] Blood platelet mean volumeOr dered By: Tyler Green on 05-31-2023 Platelet mean volume (Bld) [Entitic vol] 9.4 fL 6.2-12.0 [facility] Determination of erythrocyte mean corpuscular volume (MCV)Ordered By: Tyler Green on 05-31-2023 MCV (RBC) [Entitic vol] 98.9 fL 81-99 [facility] Hematocrit Auto (Bld) [Volum e fraction]Ordered By: Tyler Green on 05-31-2023 Hematocrit (Bld) [Volume fraction] 45.6 % 37-47 [facility] Ketones Test strip Ql (U)Ord ered By: Tyler Green on 05-31-2023 Ketones Ql (U) Negative Negative [facility] Laboratory - Chemistry and C hemistry - challengeOrdered By: Tyler Green on 05-31-2023 CO2 [Moles/Vol] 29.0 mmol/L 21.0-32.0 [facility] Urea nitrogen/Creatinine [Mass ratio] 19.0 mg/mg 10-20 [facility] Laboratory - Hematology and Cell countsOrdered By: Tyler Green on 05-31-2023 Erythrocyte distribution width (RBC) [Entitic vol] 44.8 fL 35.1-43.9 [facility] Erythrocyte distribution width (RBC) [Ratio] 12.3 % 11.6-14.6 [facility] Immature granulocytes/100 WBC (Bld) 0.400 % 0.0-0.9 [facility] Comment on above: IG% - Immature Granu locytes (promyelocytes, myelocytes and metamyelocytes) > 1% indicates that a LEFT SHIFT is Present. MCH (RBC) [Entitic mass] 33.8 pg 27.0-32.0 [facility] Nucleated RBC/100 WBC (Bld) [Ratio] 0 % 0-5 [facility] MCHC Auto (RBC) [Mass/Vol]Or dered By: Tyler Green on 05-31-2023 MCHC (RBC) [Mass/Vol] 34.2 g/dL 32-36 [facility] Mucus LM Ql (Urine sed)Order ed By: Tyler Green on 05-31-2023 Mucus Ql (Urine sed) 0 SEEN /hpf [facility] Nitrite Test strip Ql (U)Ord ered By: Tyler Green on 05-31-2023 Nitrite Ql (U) Negative Negative [facility] No Panel InformationOrdered By: Tyler Green on 05-31-2023 Estimated Creatinine Clearance Calc 35.96 ml/min [facility] Estimated GFR (MDRD) Amer 121 mL/min >60 [facility] Comment on above: GFR Calc Estimated GFR (MDRD) Non-Af Amer 100 mL/min >60 [facility] Comment on above: Non- GFR Calc Platelets bldOrdered By: Haseeb Green on 05-31-2023 Platelets (Bld) [#/Vol] 299 10*3/uL 150-450 [facility] Protein Test strip Ql (U)Ord ered By: Tyler Green on 05-31-2023 Protein Ql (U) Negative Negative [facility] Serum or plasma calcium alonso urement (mass/volume)Ordered By: Tyler Green on 05-31-2023 Calcium [Mass/Vol] 8.9 mg/dL 8.5-10.1 [facility] Serum or plasma creatinine m easurement (mass/volume)Ordered By: Tyler Green on 05-31-2023 Creatinine [Mass/Vol] 0.63 mg/dL 0.55-1.02 [facility] Comment on above: The validity of the calculated GFR & GFRAA in patients over 70 years has not been determined. Clinical correlation is essential. Serum or plasma urea nitroge n measurement (mass/volume)Ordered By: Tyler Green on 05-31-2023 Urea nitrogen [Mass/Vol] 12 mg/dL 7-18 [facility] Squamous epithelial cells de tection in urine sediment by light microscopyOrdered By: Tyler Green on 05-31-2023 Epithelial cells.squamous LM Ql (Urine sed) 0-5 SEEN /hpf 5-10 [facility] Thin prep Papanicolaou smear with manual screeningOrdered By: Tyler Green on 05-31-2023 Thin prep Papanicolaou smear with manual screening 5 5-15 [facility] Urine blood detectionOrdered By: Tyler Green on 05-31-2023 RBC Ql (U) 25 /ul Negative [facility] RBC Ql (U) 0 SEEN /hpf 0-5 [facility] Urine clarityOrdered By: Haseeb Green on 05-31-2023 Clarity (U) Clear Clear [facility] Urine color determinationOrd ered By: Tyler Green on 05-31-2023 Color (U) Yellow Yellow [facility] Urine glucose detectionOrder ed By: Tyler Green on 05-31-2023 Glucose Ql (U) Normal mg/dl Normal [facility] Urine leukocyte esterase det ection by dipstickOrdered By: Tyler Green on 05-31-2023 Leukocyte esterase Test strip Ql (U) Negative Negative [facility] Urine pHOrdered By: Tyler Green on 05-31-2023 pH (U) 7.0 [pH] 5.0 - 8.0 [facility] Urine sediment bacteria coun t by microscopy (number/high power field)Ordered By: Tyler Green on 05-31-2023 Bacteria LM.HPF (Urine sed) [#/Area] 0 /[HPF] None Seen [facility] Urine specific gravity measu rementOrdered By: Tyler Green on 05-31-2023 Specific gravity (U) [Rel density] 1.010 1.002-1.030 [facility] Urobilinogen Auto test strip Ql (U)Ordered By: Tyler Green on 05-31-2023 Urobilinogen Ql (U) Normal mg/dl Normal [facility] CTA HEAD W IVCONon 3 [facility] Basic metabolic 2000 panelon 02-20-2023 Anion gap [Moles/Vol] 13 mmol/L 9 - 18 mmol/L [facility] Calcium [Mass/Vol] 9.7 mg/dL 8.5 - 10. 2 mg/dL [facility] Chloride [Moles/Vol] 97 mmol/L 97 - 10 5 mmol/L [facility] CO2 [Moles/Vol] 26 mmol/L 22 - 30 mmol/L [facility] Creatinine [Mass/Vol] 0.60 mg/dL 0.58 - 0.96 mg/dL [facility] Estimated Glomerular Filtration Rate 99 mL/min/1.73m >=60 mL/min/1.73m [facility] Glucose [Mass/Vol] 101 mg/dL High 74 - 99 mg/dL [facility] Potassium [Moles/Vol] 4.5 mmol/L 3.7 - 5.1 mmol/L [facility] Sodium [Moles/Vol] 136 mmol/L 136 - 144 mmol/L [facility] Urea nitrogen [Mass/Vol] 16 mg/dL 7 - 21 mg/d L [facility] CBC W Auto Differential pane l (Bld)on 02-20-2023 Basophils (Bld) [#/Vol] 0.07 10*3/uL <0.11 k/uL [facility] Basophils/100 WBC (Bld) 0.6 % C [facility] Differential cell count method Nom (Bld) Auto [facility] Eosinophils (Bld) [#/Vol] 0.21 10*3/uL <0.46 k/uL [facility] Eosinophils/100 WBC (Bld) 1.9 % [facility] Erythrocyte distribution width (RBC) [Ratio] 12.0 % 11.5 - 15.0 % [facility] Hematocrit (Bld) [Volume fraction] 44.1 % 36.0 - 46.0 % [facility] Hemoglobin (Bld) [Mass/Vol] 14.5 g/dL 11.5 - 15.5 g/dL [facility] Immature granulocytes (Bld) [#/Vol] 0.10 10*3/uL High <0.10 k/uL [facility] Immature granulocytes/100 WBC (Bld) 0.9 % [facility] Lymphocytes (Bld) [#/Vol] 1.80 10*3/uL 1.00 - 4.00 k/uL [facility] Lymphocytes/100 WBC (Bld) 15.9 % [facility] MCH (RBC) [Entitic mass] 32.7 pg 26. 0 - 34.0 pg [facility] MCHC (RBC) [Mass/Vol] 32.9 g/dL 30.5 - 36.0 g/dL [facility] MCV (RBC) [Entitic vol] 99.5 fL 80.0 - 100.0 fL [facility] Monocytes (Bld) [#/Vol] 0.94 10*3/uL High <0.87 k/uL [facility] Monocytes/100 WBC (Bld) 8.3 % C [facility] Neutrophils (Bld) [#/Vol] 8.20 10*3/uL High 1.45 - 7.50 k/uL [facility] Neutrophils/100 WBC (Bld) 72.4 % [facility] Nucleated RBC (Bld) [#/Vol] <0.01 k/uL [facility] Nucleated RBC/100 WBC (Bld) [Ratio] 0.0 /100 WBC [facility] Platelet mean volume (Bld) [Entitic vol] 8.6 fL Low 9.0 - 12.7 fL [facility] Platelets (Bld) [#/Vol] 621 10*3/uL High 150 - 400 k/uL [facility] RBC (Bld) [#/Vol] 4.43 10*6/uL 3.90 - 5.2 0 m/uL [facility] WBC (Bld) [#/Vol] 11.32 10*3/uL High 3.70 - 11 .00 k/uL [facility] TSH BLDon 02-20-2023 TSH Qn 1.060 m[IU]/L 0.270 - 4.200 mIU/L [facility] Absolute lymphocyte countOrd ered By: Raymundo Mercado on 02-12-2023 Lymphocytes Auto (Unsp spec) [#/Vol] 1.54 10*3/uL 0.83-4.51 [facility] Basophil percentageOrdered B y: Raymundo Mercado on 02-12-2023 Basophil percentage 0 SEEN /hpf 0-[address] [facility] Basophils/100 WBC (Bld) 0.6 % 0-1 [facility] Chloride [Moles/Vol] 97 mmol/L 98-[address] [facility] Eosinophils/100 WBC (Bld) 1.9 % 0-5 [facility] Glucose [Mass/Vol] 102 mg/dL 74-106 [facility] Comment on above: Fasting Glucose resu lt from 100 to 125 mg/dL suggests IMPAIRED HOMEOSTASIS per A.D.A. criteria. Neutrophils (Bld) [#/Vol] 6.0 10*3/uL 2.0-7.7 [facility] Neutrophils/100 WBC (Bld) 66.1 % 47-70 [facility] Potassium [Moles/Vol] 3.5 mmol/L 3.5-5.1 [facility] Sodium [Moles/Vol] 133 mmol/L 136-145 [facility] WBC (Bld) [#/Vol] 9.1 10*3/uL 4.4-11.0 [facility] Bilirubin Test strip Ql (U)O rdered By: Raymundo Mercado on 02-12-2023 Bilirubin Ql (U) Negative Negative [facility] Blood erythrocytes count (nu mber/volume)Ordered By: Raymundo Mercado on 02-12-2023 RBC (Bld) [#/Vol] 4.27 10*6/uL 4.2-5.4 [facility] Blood hemoglobin measurement (mass/volume)Ordered By: Raymundo Mercado on 02-12-2023 Hemoglobin (Bld) [Mass/Vol] 14.3 g/dL 12.0-15.0 [facility] Blood lymphocytes/100 leukoc ytesOrdered By: Raymundo Mercado on 02-12-2023 Lymphocytes/100 WBC (Bld) 17.0 % 19-41 [facility] Blood monocytes/100 leukocyt esOrdered By: Raymundo Mercado on 02-12-2023 Monocytes/100 WBC (Bld) 14.0 % 0-10 [facility] Blood platelet mean volumeOr dered By: Raymundo Mercado on 02-12-2023 Platelet mean volume (Bld) [Entitic vol] 8.7 fL 6.2-12.0 [facility] Determination of erythrocyte mean corpuscular volume (MCV)Ordered By: Raymundo Mercado on 02-12-2023 MCV (RBC) [Entitic vol] 98.8 fL 81-99 [facility] Hematocrit Auto (Bld) [Volum e fraction]Ordered By: Raymundo Mercado on 02-12-2023 Hematocrit (Bld) [Volume fraction] 42.2 % 37-47 [facility] Ketones Test strip Ql (U)Ord ered By: Raymundo Mercado on 02-12-2023 Ketones Ql (U) Negative Negative [facility] Laboratory - Chemistry and C hemistry - challengeOrdered By: Raymundo Mercado on 02-12-2023 CO2 [Moles/Vol] 28.0 mmol/L 21.0-32.0 [facility] Urea nitrogen/Creatinine [Mass ratio] 12.3 mg/mg 10-20 [facility] Laboratory - Hematology and Cell countsOrdered By: Raymundo Mercado on 02-12-2023 Erythrocyte distribution width (RBC) [Entitic vol] 43.2 fL 35.1-43.9 [facility] Erythrocyte distribution width (RBC) [Ratio] 11.9 % 11.6-14.6 [facility] Immature granulocytes/100 WBC (Bld) 0.400 % 0.0-0.9 [facility] Comment on above: IG% - Immature Granu locytes (promyelocytes, myelocytes and metamyelocytes) > 1% indicates that a LEFT SHIFT is Present. MCH (RBC) [Entitic mass] 33.5 pg 27.0-32.0 [facility] Nucleated RBC/100 WBC (Bld) [Ratio] 0 % 0-5 [facility] MCHC Auto (RBC) [Mass/Vol]Or dered By: Raymundo Mercado on 02-12-2023 MCHC (RBC) [Mass/Vol] 33.9 g/dL 32-36 [facility] Mucus LM Ql (Urine sed)Order ed By: Raymundo Mercado on 02-12-2023 Mucus Ql (Urine sed) 0 SEEN /hpf [facility] Nitrite Test strip Ql (U)Ord ered By: Raymundo Mercado on 02-12-2023 Nitrite Ql (U) Negative Negative [facility] No Panel InformationOrdered By: Raymundo Mercado on 02-12-2023 Estimated Creatinine Clearance Calc 38.35 ml/min [facility] Estimated GFR (MDRD) Amer 162 mL/min >60 [facility] Comment on above: GFR Calc Estimated GFR (MDRD) Non-Af Amer 134 mL/min >60 [facility] Comment on above: Non- GFR Calc Platelets bldOrdered By: Kim Mercado on 02-12-2023 Platelets (Bld) [#/Vol] 321 10*3/uL 150-450 [facility] Protein Test strip Ql (U)Ord ered By: Raymundo Mercado on 02-12-2023 Protein Ql (U) 15 mg/dl Negative [facility] Serum or plasma calcium alonso urement (mass/volume)Ordered By: Raymundo Mercado on 02-12-2023 Calcium [Mass/Vol] 9.1 mg/dL 8.5-10.1 [facility] Serum or plasma creatinine m easurement (mass/volume)Ordered By: Raymundo Mercado on 02-12-2023 Creatinine [Mass/Vol] 0.49 mg/dL 0.55-1.02 [facility] Comment on above: The validity of the calculated GFR & GFRAA in patients over 70 years has not been determined. Clinical correlation is essential. Serum or plasma urea nitroge n measurement (mass/volume)Ordered By: Raymundo Mercado on 02-12-2023 Urea nitrogen [Mass/Vol] 6 mg/dL 7-18 [facility] Squamous epithelial cells de tection in urine sediment by light microscopyOrdered By: Raymundo Mercado on 02-12-2023 Epithelial cells.squamous LM Ql (Urine sed) 0 SEEN /hpf 5-10 [facility] Thin prep Papanicolaou smear with manual screeningOrdered By: Raymundo Mercado on 02-12-2023 Thin prep Papanicolaou smear with manual screening 8 5-15 [facility] Urine blood detectionOrdered By: Raymundo Mercado on 02-12-2023 RBC Ql (U) 25 /ul Negative [facility] RBC Ql (U) 0 SEEN /hpf 0-5 [facility] Urine clarityOrdered By: Kim Mercado on 02-12-2023 Clarity (U) Clear Clear [facility] Urine color determinationOrd ered By: Raymundo Mercado on 02-12-2023 Color (U) Yellow Yellow [facility] Urine glucose detectionOrder ed By: Raymundo Mercado on 02-12-2023 Glucose Ql (U) Normal mg/dl Normal [facility] Urine leukocyte esterase det ection by dipstickOrdered By: Raymundo Mercado on 02-12-2023 Leukocyte esterase Test strip Ql (U) 25 /ul Negative [facility] Urine pHOrdered By: Raymundo segal on 02-12-2023 pH (U) 7.0 [pH] 5.0 - 8.0 [facility] Urine sediment bacteria coun t by microscopy (number/high power field)Ordered By: Raymundo Mercado on 02-12-2023 Bacteria LM.HPF (Urine sed) [#/Area] 0 /[HPF] None Seen [facility] Urine specific gravity measu rementOrdered By: Raymundo Mercado on 02-12-2023 Specific gravity (U) [Rel density] 1.010 1.002-1.030 [facility] Urobilinogen Auto test strip Ql (U)Ordered By: Raymundo Mercado on 02-12-2023 Urobilinogen Ql (U) Normal mg/dl Normal [facility] XR Wrist - right 4 Viewson 0 12-18-2022 IMPRESSION: No radiographic evidence of acute osseous injury Tug Master: LEONARDO Transcribe Date/Time: Dec 18 2022 10:00A Dictated by : KATIE WATERS MD This examination was interpreted and the report reviewed and electronically signed by: KATIE WATERS MD on Dec 18 2022 10:02AM [facility] DIVISION OF RADIOLOGY * * [...] radiopaque foreign body. DIVISION OF RADIOLOGY Provider, [facility] Cristal [facility] - 12/18/2022 * * *Final Report* [...] No radiographic evidence of acute osseous injury Tug Master: [facility] Transcribe Date/Time: Dec 18 2022 10:00A Dictated by : KATIE WATERS MD This examination was interpreted and the report reviewed and electronically signed by: KATIE WATERS MD on Dec 18 2022 10:02AM EST [facility] Radiology Study observation (narrative) [facility] Wrist - right 4 ViewsOrde red By: [facility] Provider on 12-18-[address] [facility] [address] CHEST WO IVCONon 12-04-19 [facility] US ABDOMEN COMPLETEon 2022 [facility] DXA-AXIAL SKELETONon 023 [facility] MARCIANO SCREENINGon 07-31-2022 [facility] ECG COMPLETEon 07-09-2022 Atrial Rate 82 BPM [facility] Calculated P [place] 41 degrees [facility] Calculated R [place] 48 degrees [facility] Calculated T [place] [address] [facility] P-R Interval 124 ms [facility] QRS Duration 68 ms [facility] QT Interval 338 ms [facility] QTC Calculation (Bazett) 394 ms [facility] Ventricular Rate 82 BPM [facility] XR CHEST 2V FRONTAL/LATon [facility] XR Chest PA and Lateralon IMPRESSION: Stable chronic changes. No superimposed acute cardiopulmonary process. Tug Master: LEONARDO Transcribe Date/Time: Jul 09 2022 3:46P Dictated by : KASEY BLOUNT MD This examination was interpreted and the report reviewed and electronically signed by: KASEY BLOUNT MD on Jul 09 2022 3:48PM [facility] DIVISION OF RADIOLOGY * * [...] destructive process noted. DIVISION OF RADIOLOGY Provider, [facility] - 07/09/2022 * * *Final Report* * [...] chronic changes. No superimposed acute cardiopulmonary process. Tug Master: LEONARDO Transcribe Date/Time: Jul 09 2022 3:46P Dictated by : KASEY BLOUNT MD This examination was interpreted and the report reviewed and electronically signed by: KASEY BLOUNT MD on Jul 09 2022 3:48PM EST [facility] Radiology Study [facility] (narrative) [facility] XR Chest PA and LateralOrder ed By: [facility] Provider on 07-09-2022 [facility] XR Abdomen Supine and Uprigh ton 03-23-2022 IMPRESSION: Nonobstructive bowel gas pattern with fecal retention. Tug Master: LEONARDO Transcribe Date/Time: Mar 23 2022 10:50A [...] abdominal examinations available for comparison within the [facility] Imaging Archives. Comparison is made to [...] SE_DIVISION OF RADIOLOGY Provider, [facility] Cristal reza Lavina - 03/23/2022 * * *Final Report* * [...] abdominal examinations available for comparison within the [facility] Imaging Archives. Comparison is made to [...] Nonobstructive bowel gas pattern with fecal retention. Tug Master: PSYCHIATRICB Transcribe Date/Time: Mar 23 2022 10:50A Dictated by : KASEY BLOUNT MD This examination was interpreted and the report reviewed and electronically signed by: KASEY BLOUNT MD on Mar 23 2022 5:53PM EST [facility] Radiology Study [facility] (narrative) [facility] Abdomen Supine and Uprigh tOrdered By: Ccf Provider on 03-23-2022 [facility] Absolute lymphocyte counton 03-18-2022 Lymphocytes Auto (Unsp spec) [#/Vol] 1.30 10*3/uL 0.83-4.51 [facility] Work Phone: Basophil percentageon 2021 Basophils/100 WBC (Bld) 0.5 % 0-1 [facility] Work Phone: Bilirubin [Mass/Vol] 0.40 mg/dL 0.20-1.[address] [facility] [facility] [facility] Work Phone: Comment on above: For patients on eltr ombopag therapy, use of Dimension [place] TBIL is not recommended. Chloride [Moles/Vol] 109 mmol/L 98-[address] [facility] Work Phone: Eosinophils/100 WBC (Bld) 1.5 % 0-5 [facility] Work Phone: Glucose [Mass/Vol] 109 mg/dL 74-106 [facility] Work Phone: Comment on above: Fasting Glucose resu lt from 100 to 125 mg/dL suggests IMPAIRED HOMEOSTASIS per A.D.A. criteria. Neutrophils (Bld) [#/Vol] 8.4 10*3/uL 2.0-7.7 [facility] Work Phone: Neutrophils/100 WBC (Bld) 75.8 % 47-70 [facility] Work Phone: Potassium [Moles/Vol] 3.8 mmol/L 3.5-5.1 [facility] Work Phone: Protein [Mass/Vol] 6.4 g/dL 6.4-8.2 [facility] Work Phone: Sodium [Moles/Vol] 140 mmol/L 136-145 [facility] Work Phone: WBC (Bld) [#/Vol] 11.1 10*3/uL 4.4-11.0 [facility] Work Phone: Blood erythrocytes count (nu mber/volume)on 03-18-2022 RBC (Bld) [#/Vol] 4.28 10*6/uL 4.2-5.4 [facility] Work Phone: Blood hemoglobin measurement (mass/volume)on 03-18-2022 Hemoglobin (Bld) [Mass/Vol] 14.6 g/dL 12.0-15.0 [facility] Work Phone: Blood lymphocytes/100 leukoc yteson 03-18-2022 Lymphocytes/100 WBC (Bld) 11.7 % 19-41 [facility] Work Phone: Blood monocytes/100 leukocyt eson 03-18-2022 Monocytes/100 WBC (Bld) 10.2 % 0-10 [facility] Work Phone: Blood platelet mean volumeon 03-18-2022 Platelet mean volume (Bld) [Entitic vol] 8.8 fL 6.2-12.0 [facility] Work Phone: Determination of erythrocyte mean corpuscular volume (MCV)on 03-18-2022 MCV (RBC) [Entitic vol] 102.1 fL 81-99 [facility] Work Phone: Hematocrit Auto (Bld) [Volum e fraction]on 03-18-2022 Hematocrit (Bld) [Volume fraction] 43.7 % 37-47 [facility] Work Phone: Laboratory - Chemistry and C hemistry - challengeon 03-18-2022 ALP [Catalytic activity/Vol] 91 U/L 45-117 [facility] Work Phone: ALT [Catalytic activity/Vol] 15 U/L 13-56 [facility] Work Phone: CO2 [Moles/Vol] 27.0 mmol/L 21.0-32.0 [facility] Work Phone: Globulin (S) [Mass/Vol] 3.4 g/dL 2.2-4.2 [facility] Work Phone: Urea nitrogen/Creatinine [Mass ratio] 11.9 mg/mg 10-20 [facility] Work Phone: Laboratory - Hematology and Cell countson 03-18-2022 Erythrocyte distribution width (RBC) [Entitic vol] 47.5 fL 35.1-43.9 [facility] Work Phone: Erythrocyte distribution width (RBC) [Ratio] 12.5 % 11.6-14.6 [facility] Work Phone: Immature granulocytes/100 WBC (Bld) 0.300 % 0.0-0.9 [facility] Work Phone: Comment on above: IG% - Immature Granu locytes (promyelocytes, myelocytes and metamyelocytes) > 1% indicates that a LEFT SHIFT is Present. MCH (RBC) [Entitic mass] 34.1 pg 27.0-32.0 [facility] Work Phone: Nucleated RBC/100 WBC (Bld) [Ratio] 0 % 0-5 [facility] Work Phone: MCHC Auto (RBC) [Mass/Vol]on 03-18-2022 MCHC (RBC) [Mass/Vol] 33.4 g/dL 32-36 [facility] Work Phone: No Panel Informationon 03-18 Estimated Creatinine Clearance Calc 36.87 ml/min [facility] Work Phone: Estimated GFR (MDRD) Amer 132 mL/min >60 [facility] Work Phone: Comment on above: GFR Calc Estimated GFR (MDRD) Non-Af Amer 109 mL/min >60 [facility] Work Phone: Comment on above: Non- GFR Calc Platelets bldon 03-18-2022 Platelets (Bld) [#/Vol] 277 10*3/uL 150-450 [facility] Work Phone: Serum or plasma albumin alonso urement (mass/volume)on 03-18-2022 Albumin [Mass/Vol] 3.0 g/dL 3.2-5.0 [facility] Work Phone: [phone] Serum or plasma albumin/glob ulin mass ratioon 03-18-2022 Albumin/Globulin [Mass ratio] 0.9 {ratio} 0.9-2.4 [facility] Work Phone: [phone] Serum or plasma calcium alonso urement (mass/volume)on 03-18-2022 Calcium [Mass/Vol] 7.7 mg/dL 8.5-10.1 [facility] Work Phone: [phone] Serum or plasma creatinine m easurement (mass/volume)on 03-18-2022 Creatinine [Mass/Vol] 0.59 mg/dL 0.55-[facility] Work [facility]: Comment on above: The validity of the calculated GFR & GFRAA in patients over 70 years has not been determined. Clinical correlation is essential. Serum or plasma urea nitroge n measurement (mass/volume)on 03-18-2022 Urea nitrogen [Mass/Vol] 7 mg/dL 7-18 [facility] Work Phone: Thin prep Papanicolaou smear with manual screeningon 03-18-2022 Thin prep Papanicolaou smear with manual screening 16 U/L 15-37 [facility] Work Phone: Thin prep Papanicolaou smear with manual screening 4 5-15 [facility] Work Phone: Absolute lymphocyte counton 03-17-2022 Lymphocytes Auto (Unsp spec) [#/Vol] 1.49 10*3/uL 0.83-4.51 [facility] Work Phone: Basophil percentageon 2021 Basophil percentage 2.9 mg/dL 2.5-4.9 [facility] Work Phone: Basophils/100 WBC (Bld) 0.6 % 0-1 [facility] Work Phone: Bilirubin [Mass/Vol] 0.40 mg/dL 0.20-1.[address] [facility] Work Phone: Comment on above: For patients on eltr ombopag therapy, use of Dimension [place] TBIL is not recommended. Chloride [Moles/Vol] 104 mmol/L 98-[address] [facility] Work Phone: Eosinophils/100 WBC (Bld) 1.7 % 0-5 [facility] Work Phone: Glucose [Mass/Vol] 128 mg/dL 74-106 [facility] Work Phone: Comment on above: Fasting Glucose resu lt greater than or equal to 126 mg/dL suggests DIABETES MELLITUS per A.D.A. criteria. Lactate [Moles/Vol] 0.6 mmol/L 0.4-2.0 [facility] Work Phone: Neutrophils (Bld) [#/Vol] 8.7 10*3/uL 2.0-7.7 [facility] Work Phone: Neutrophils/100 WBC (Bld) 75.8 % 47-70 [facility] Work Phone: Potassium [Moles/Vol] 3.8 mmol/L 3.5-5.1 [facility] Work Phone: Protein [Mass/Vol] 7.3 g/dL 6.4-8.2 [facility] Work Phone: Sodium [Moles/Vol] 138 mmol/L 136-145 [facility] Work Phone: WBC (Bld) [#/Vol] 11.5 10*3/uL 4.4-11.0 [facility] Work Phone: Bilirubin Test strip Ql (U)o n 03-17-2022 Bilirubin Ql (U) Negative Negative [facility] Work Phone: Blood erythrocytes count (nu mber/volume)on 03-17-2022 RBC (Bld) [#/Vol] 4.68 10*6/uL 4.2-5.4 [facility] Work Phone: Blood hemoglobin measurement (mass/volume)on 03-17-2022 Hemoglobin (Bld) [Mass/Vol] 15.9 g/dL 12.0-15.0 [facility] Work Phone: Blood lymphocytes/100 leukoc yteson 03-17-2022 Lymphocytes/100 WBC (Bld) 12.9 % 19-41 [facility] Work Phone: Blood monocytes/100 leukocyt eson 03-17-2022 Monocytes/100 WBC (Bld) 8.7 % 0-10 [facility] Work Phone: Blood platelet mean volumeon 03-17-2022 Platelet mean volume (Bld) [Entitic vol] 9.0 fL 6.2-12.0 [facility] Work Phone: Determination of erythrocyte mean corpuscular volume (MCV)on 03-17-2022 MCV (RBC) [Entitic vol] 100.9 fL 81-99 [facility] Work Phone: [phone] Hematocrit Auto (Bld) [Volum e fraction]on 03-17-2022 Hematocrit (Bld) [Volume fraction] 47.2 % 37-47 [facility] Work Phone: [phone] Ketones Test strip Ql (U)on 03-17-2022 Ketones Ql (U) 5 mg/dl Negative [facility] Work Phone: Laboratory - Chemistry and C hemistry - challengeon 03-17-2022 ALP [Catalytic activity/Vol] 101 U/L 45-117 [facility] Work Phone: ALT [Catalytic activity/Vol] 19 U/L 13-56 [facility] Work Phone: CO2 [Moles/Vol] 28.0 mmol/L 21.0-32.0 [facility] Work Phone: Globulin (S) [Mass/Vol] 3.7 g/dL 2.2-4.2 [facility] Work Phone: [phone] Lipase [Catalytic activity/Vol] 212 U/L 73-393 [facility] Work Phone: [phone] Magnesium [Mass/Vol] 2.2 mg/dL 1.6-2.[address] [facility] Work Phone: [phone] Comment on above: Moderate Hemolysis, Result may be falsely increased. Urea nitrogen/Creatinine [Mass ratio] 16.2 mg/mg 10-20 [facility] Work Phone: [phone] Laboratory - Hematology and Cell countson 03-17-2022 Erythrocyte distribution width (RBC) [Entitic vol] 46.3 fL 35.1-43.9 [facility] Work Phone: [phone] Erythrocyte distribution width (RBC) [Ratio] 12.3 % 11.6-14.6 [facility] Work Phone: Immature granulocytes/100 WBC (Bld) 0.300 % 0.0-0.9 [facility] Work Phone: Comment on above: IG% - Immature Granu locytes (promyelocytes, myelocytes and metamyelocytes) > 1% indicates that a LEFT SHIFT is Present. MCH (RBC) [Entitic mass] 34.0 pg 27.0-32.0 [facility] Work Phone: Nucleated RBC/100 WBC (Bld) [Ratio] 0 % 0-5 [facility] Work Phone: [phone] MCHC Auto (RBC) [Mass/Vol]on 03-17-2022 MCHC (RBC) [Mass/Vol] 33.7 g/dL 32-36 [facility] Work Phone: [phone] Nitrite Test strip Ql (U)on 03-17-2022 Nitrite Ql (U) Negative Negative [facility] Work Phone: No Panel Informationon 03-17 Estimated Creatinine Clearance Calc 37.64 ml/min [facility] Work Phone: Estimated GFR (MDRD) Amer 101 mL/min >60 [facility] Work Phone: Comment on above: GFR Calc Estimated GFR (MDRD) Non-Af Amer 83 mL/min >60 [facility] Work Phone: Comment on above: Non- GFR Calc Platelets bldon 03-17-2022 Platelets (Bld) [#/Vol] 331 10*3/uL 150-450 [facility] Work Phone: Protein Test strip Ql (U)on 03-17-2022 Protein Ql (U) Negative Negative [facility] Work Phone: [phone] Serum or plasma albumin alonso urement (mass/volume)on 03-17-2022 Albumin [Mass/Vol] 3.6 g/dL 3.2-5.0 [facility] Work Phone: [phone] Serum or plasma albumin/glob ulin mass ratioon 03-17-2022 Albumin/Globulin [Mass ratio] 1.0 {ratio} 0.9-2.4 [facility] Work Phone: Serum or plasma calcium alonso urement (mass/volume)on 03-17-2022 Calcium [Mass/Vol] 8.9 mg/dL 8.5-10.1 [facility] Work Phone: Serum or plasma creatinine m easurement (mass/volume)on 03-17-2022 Creatinine [Mass/Vol] 0.74 mg/dL 0.55-1.02 [facility] Work Phone: Comment on above: The validity of the calculated GFR & GFRAA in patients over 70 years has not been determined. Clinical correlation is essential. Serum or plasma urea nitroge n measurement (mass/volume)on 03-17-2022 Urea nitrogen [Mass/Vol] 12 mg/dL 7-18 [facility] Work Phone: Thin prep Papanicolaou smear with manual screeningon 03-17-2022 Thin prep Papanicolaou smear with manual screening 17 U/L 15-37 [facility] Work Phone: Thin prep Papanicolaou smear with manual screening 6 5-15 [facility] Work Phone: Urine blood detectionon 03-02 RBC Ql (U) 25 /ul Negative [facility] Work Phone: Urine clarityon 03-17-2022 Clarity (U) Clear Clear [facility] Work Phone: Urine color determinationon 03-17-2022 Color (U) Yellow Yellow [facility] Work Phone: Urine glucose detectionon Glucose Ql (U) Normal mg/dl Normal [facility] Work Phone: Urine leukocyte esterase det ection by dipstickon 03-17-2022 Leukocyte esterase Test strip Ql (U) Negative Negative [facility] Work Phone: Urine pHon 03-17-2022 pH (U) 6.0 [pH] 5.0 - 8.0 [facility] Work Phone: Urine specific gravity measu rementon 03-17-2022 Specific gravity (U) [Rel density] 1.010 1.002-1.030 [facility] Work Phone: Urobilinogen Auto test strip Ql (U)on 03-17-2022 Urobilinogen Ql (U) Normal mg/dl Normal [facility] Work Phone: XR SACRUM/COCCYX 3V AP/LATon 03-14-2022 [facility] XR Sacrum and Coccyx 3 Views on 03-14-2022 IMPRESSION: No acute radiographic abnormalities seen in the sacrum/coccyx. Tug Master: LEONARDO Transcribe Date/Time: Mar 14 2022 11:12A Dictated by : LAURIE KAYE MD This examination was interpreted and the report reviewed and electronically signed by: LAURIE KYAE MD on Mar 14 2022 11:14AM EST [...] L5 laminectomy. [id number] _DIVISION OF RADIOLOGY Provider, [facility] Cristal reza Lavina - 03/14/2022 * * *Final Report* * [...] acute radiographic abnormalities seen in the sacrum/coccyx. Tug Master: [facility] Transcribe Date/Time: Mar 14 2022 11:12A Dictated by : LAURIE KAYE MD This examination was interpreted and the report reviewed and electronically signed by: LAURIE KAYE MD on Mar 14 2022 11:14AM [facility] Radiology Study observation (narrative) [facility] XR Sacrum and Coccyx 3 Views Ordered By: Ccf Provider on 03-14-2022 [facility] XR Chest PA and Lateralon IMPRESSION: No acute radiographic abnormality. Tug Master: [employer] Transcribe Date/Time: Dec 27 2020 10:19A Dictated by : CECILIO GAVIRIA MD This examination was interpreted and the report reviewed and electronically signed by: CECILIO GAVIRIA MD on Dec 27 2020 10:20AM [facility] DIVISION OF RADIOLOGY * * [...] Degenerative change. Osteopenia DIVISION OF RADIOLOGY Provider, [facility] Cristal Messer - 12/27/2020 * * [...] Osteopenia IMPRESSION IMPRESSION: No acute radiographic abnormality. Tug Master: LEONARDO Transcribe Date/Time: Dec 27 2020 10:19A Dictated by : CECILIO GAVIRIA MD This examination was interpreted and the report reviewed and electronically signed by: CECILIO GAVIRIA MD on Dec 27 2020 10:20AM [facility] Radiology Study observation (narrative) [facility] XR Chest PA and LateralOrder ed By: Ccf Provider on 12-27-2020 [facility] XR Pelvis and Hip - left AP and Lateral frogon 12-17-2020 IMPRESSION: No acute findings radiographically. Postoperative and degenerative changes lower lumbar spine. Tug Master: [facility] Transcribe Date/Time: Dec 17 2020 10:28A Dictated by : TOI MACK MD This examination was interpreted and the report reviewed and electronically signed by: TOI MACK MD on Dec 17 2020 10:33AM [facility] DIVISION OF RADIOLOGY * * [...] laminectomies. DIVISION OF RADIOLOGY Provider, Elder reza Lavina - 12/17/2020 * * *Final Report* * [...] Postoperative and degenerative changes lower lumbar spine. Tug Master: LEONARDO Transcribe Date/Time: Dec 17 2020 10:28A Dictated by : TOI MACK MD This examination was interpreted and the report reviewed and electronically signed by: TOI MACK MD on Dec 17 2020 10:33AM [facility] Radiology Study observation (narrative) [facility] XR Pelvis and Hip - left AP and Lateral frogOrdered By: Cc Provider on 12-17-2020 [facility] XR Chest PA and Lateralon IMPRESSION: no active cardiopulmonary disease Tug Master: [facility] Transcribe Date/Time: Jul 23 2020 9:03P Dictated by : TOÑO GARCIA MD This examination was interpreted and the report reviewed and electronically signed by: TOÑO GARCIA MD on Jul 23 2020 9:04PM [facility] DIVISION OF RADIOLOGY * * [...] right DIVISION OF RADIOLOGY Provider, Elder Bee [facility] - 07/23/2020 * * *Final Report* [...] right IMPRESSION IMPRESSION: no active cardiopulmonary disease Tug Master: [facility] Transcribe Date/Time: Jul 23 2020 9:03P Dictated by : TOÑO GARCIA MD This examination was interpreted and the report reviewed and electronically signed by: TOÑO GARCIA MD on Jul 23 2020 9:04PM EST [facility] Radiology Study observation (narrative) [facility] XR Chest PA and LateralOrder ed By: Ccf Provider on 07-23-2020 [facility] Vital Signs Date Time Vital Sign Value Performing Clinician Facility 06-08-2025 10:39-0400 Body height 144.[address] Rito Camp MD Work Phone: [facility] 06-08-2025 10:39-0400 Body mass index (BMI) [Ratio] 19.3 kg/m2 Dr. Rito Camp MD Work Phone: [facility] 06-08-2025 10:39-0400 Body weight 40.[address] Rito Camp MD Work Phone: [facility] 05-16-2025 12:07-0400 Body mass index (BMI) [Ratio] 20.12 kg/m2 Ky Shaver COLD STRIP FEEDER.COMPOUNDING [employer] FINISHING SUPERVISOR Work Phone: [facility] 05-16-2025 12:07-0400 Body temperature 99.1 [degF] Ky Moomaw COLD STRIP FEEDER.COMPOUNDING AND FINISHING SUPERVISOR Work Phone: [facility] 05-16-2025 12:07-0400 Body weight 40.7 kg Ky Moomaw COLD STRIP FEEDER.COMPOUNDING AND FINISHING SUPERVISOR Work Phone: [facility] 05-16-2025 12:07-0400 Diastolic blood pressure 80 mm[Hg] Ky Moomaw COLD STRIP FEEDER.COMPOUNDING AND FINISHING SUPERVISOR Work Phone: [facility] 05-16-2025 12:07-0400 Heart rate 94 /min Ky Moomaw COLD STRIP FEEDER.COMPOUNDING AND FINISHING SUPERVISOR Work Phone: [facility] 05-16-2025 12:07-0400 Respiratory rate 18 /min Ky Moomaw COLD STRIP FEEDER.COMPOUNDING AND FINISHING SUPERVISOR Work Phone: [facility] 05-16-2025 12:07-0400 SaO2% (BldA) [Mass fraction] 99 % Ky Moomaw COLD STRIP FEEDER.COMPOUNDING AND FINISHING SUPERVISOR Work Phone: [facility] 05-16-2025 12:07-0400 Systolic blood pressure 130 mm[Hg] Ky Moomaw COLD STRIP FEEDER.COMPOUNDING AND FINISHING SUPERVISOR Work Phone: [facility] 05-14-2025 10:19-0400 Body mass index (BMI) [Ratio] 19.77 kg/m2 Alex Brown COLD STRIP FEEDER.COMPOUNDING AND FINISHING SUPERVISOR Work Phone: [facility] 05-14-2025 10:19-0400 Body weight 40 kg Alex Brown COLD STRIP FEEDER.COMPOUNDING AND FINISHING SUPERVISOR Work Phone: [facility] 05-14-2025 10:19-0400 Diastolic blood pressure 74 mm[Hg] Alex Brown COLD STRIP FEEDER.COMPOUNDING AND FINISHING SUPERVISOR Work Phone: [facility] 05-14-2025 10:19-0400 Heart rate 86 /min Alex Brown COLD STRIP FEEDER.COMPOUNDING AND FINISHING SUPERVISOR Work Phone: [facility] 05-14-2025 10:19-0400 Systolic blood pressure 153 mm[Hg] Alex Brown APRN.CNP Work Phone: [facility] 05-04-2025 08:58-0400 Body height 142.2 cm Shanita Green PA-C Work Phone: [facility] 05-04-2025 08:58-0400 Body mass index (BMI) [Ratio] 20.67 kg/m2 Shanita Green PA-C Work Phone: [facility] 05-04-2025 08:58-0400 Body weight 41.82 kg Shanita Green PA-C Work Phone: [facility] 05-04-2025 08:58-0400 Diastolic blood pressure 70 mm[Hg] Shanita Green PA-C Work Phone: [facility] 05-04-2025 08:58-0400 Heart rate 81 /min Shanita Green PA-C Work Phone: [facility] 05-04-2025 08:58-0400 Respiratory rate 14 /min Shanita Green PA-C Work Phone: [facility] 05-04-2025 08:58-0400 SaO2% (BldA) [Mass fraction] 95 % Shanita Green PA-C Work Phone: [facility] 05-04-2025 08:58-0400 Systolic blood pressure 130 mm[Hg] Shanita Green PA-C Work Phone: [facility] 04-20-2025 10:26-0400 Body height 144.[address] Rito Camp MD Work Phone: [facility] 04-20-2025 10:26-0400 Body mass index (BMI) [Ratio] 19.9 kg/m2 Dr. Rito Camp MD Work Phone: [facility] 04-20-2025 10:26-0400 Body weight 41.[address] Rito Camp MD Work Phone: [facility] 03-31-2025 09:23-0400 Body temperature 98.4 [degF] Dr. Rito Camp MD Work Phone: 7(542)380-490132 [place] [address] 03-31-2025 09:23-0400 Diastolic blood pressure 76 mm[Hg] Dr. Rito Camp MD Work Phone: 0(623)721-321188 [place] [address] 03-31-2025 09:23-0400 Heart rate 75 /min Dr. Rito Camp MD Work Phone: 3(220)124-418588 [place] [address] 03-31-2025 09:23-0400 Respiratory rate 16 /min Dr. Rito Camp MD Work Phone: 7(969)412-510688 [place] [address] 03-31-2025 09:23-0400 SaO2% (BldA) [Mass fraction] 94 % Dr. Rito Camp MD Work Phone: 9(228)196-137688 [place] [address] 03-31-2025 09:23-0400 Systolic blood pressure 119 mm[Hg] Dr. Rito Camp MD Work Phone: 9(358)869-180088 [place] [address] 03-31-2025 07:10-0400 Body height 144.[address] Rito Camp MD Work Phone: 3(988)743-815888 [place] [address] 03-31-2025 07:10-0400 Body mass index (BMI) [Ratio] 19.5 kg/m2 Dr. Rito Camp MD Work Phone: 7(593)375-973288 [place] [address] 03-31-2025 07:10-0400 Body weight 40.[address] Rito Camp MD Work Phone: 3(885)288-539688 [place] [address] 03-15-2025 09:52-0400 Body temperature 98.71 [degF] Shanita Green PA-C Work Phone: 4(100)409-342865 [place] [address] 03-15-2025 09:52-0400 Diastolic blood pressure 80 mm[Hg] Shanita Green PA-C Work Phone: [facility] 03-15-2025 09:52-0400 Heart rate 86 /min Shanita Green PA-C Work Phone: [facility] 03-15-2025 09:52-0400 Respiratory rate 16 /min Shanita Green PA-C Work Phone: [facility] 03-15-2025 09:52-0400 SaO2% (BldA) [Mass fraction] 96 % Shanita Green PA-C Work Phone: [facility] 03-15-2025 09:52-0400 Systolic blood pressure 110 mm[Hg] Shanita Green PA-C Work Phone: [facility] 02-09-2025 07:42-0400 Body height 144.[address] Rito Camp MD Work Phone: 5(279)756-531432 [place] [address] 02-09-2025 07:42-0400 Body mass index (BMI) [Ratio] 19 kg/m2 Dr. Rito Camp MD Work Phone: 5(256)219-493388 [place] [address] 02-09-2025 07:42-0400 Body temperature 96.4 [degF] Dr. Rito Camp MD Work Phone: 5(686)599-458888 [place] [address] 02-09-2025 07:42-0400 Body weight 39.[address] Rito Camp MD Work Phone: 8(517)430-285788 [place] [address] 02-09-2025 07:42-0400 Diastolic blood pressure 88 mm[Hg] Dr. Rito Camp MD Work Phone: 9(129)337-218032 [place] [address] 02-09-2025 07:42-0400 Heart rate 83 /min Dr. Rito Camp MD Work Phone: 9(575)811-153832 [place] [address] 02-09-2025 07:42-0400 Respiratory rate 16 /min Dr. Rito Camp MD Work Phone: 0(750)734-821088 [place] [address] 02-09-2025 07:42-0400 SaO2% (BldA) [Mass fraction] 95 % Dr. Rito Camp MD Work Phone: 1(816)413-780732 [place] [address] 02-09-2025 07:42-0400 Systolic blood pressure 132 mm[Hg] Dr. Rito Camp MD Work Phone: 1(036)057-174532 [place] [address] 01-05-2025 09:52-0400 Body mass index (BMI) [Ratio] 19.76 kg/m2 Shanita Green PA-C Work Phone: [facility] 01-05-2025 09:52-0400 Body temperature 97.81 [degF] Shanita Green PA-C Work Phone: [facility] 01-05-2025 09:52-0400 Body weight 39.97 kg Shanita Green PA-C Work Phone: [facility] 01-05-2025 09:52-0400 Diastolic blood pressure 82 mm[Hg] Shanita Green PA-C Work Phone: [facility] 01-05-2025 09:52-0400 Heart rate 77 /min Shanita Green PA-C Work Phone: [facility] 01-05-2025 09:52-0400 Respiratory rate 16 /min Shanitajonelle Green PA-C Work Phone: [facility] 01-05-2025 09:52-0400 SaO2% (BldA) [Mass fraction] 96 % Shanita Green PA-C Work Phone: [facility] 01-05-2025 09:52-0400 Systolic blood pressure 118 mm[Hg] Shanitaskyla Green PA-C Work Phone: [facility] 10-01-2024 10:15-0500 Body height 142.2 cm Rito Camp MD Work Phone: [facility] 10-01-2024 10:15-0500 Body mass index (BMI) [Ratio] 20.49 kg/m2 Rito Camp MD Work Phone: [facility] 10-01-2024 10:15-0500 Body weight 41.46 kg Rito Camp MD Work Phone: [facility] 10-01-2024 10:15-0500 Diastolic blood pressure 77 mm[Hg] Rito Camp MD Work Phone: [facility] 10-01-2024 10:15-0500 Heart rate 83 /min Rito Camp MD Work Phone: [facility] 10-01-2024 10:15-0500 Systolic blood pressure 138 mm[Hg] Rito Camp MD Work Phone: 8(906)411-626465 [place] [address] 09-15-2024 08:02-0500 Body height 144.[address] Rito Camp MD Work Phone: 0(492)716-921988 [place] [address] 09-15-2024 08:02-0500 Body mass index (BMI) [Ratio] 19.9 kg/m2 Dr. Rito Camp MD Work Phone: 7(894)733-694688 [place] [address] 09-15-2024 08:02-0500 Body temperature 97 [degF] Dr. Rito Camp MD Work Phone: 1(922)008-981588 [place] [address] 09-15-2024 08:02-0500 Body weight 41.[address] Rito Camp MD Work Phone: 7(762)827-027988 [place] [address] 09-15-2024 08:02-0500 Diastolic blood pressure 80 mm[Hg] Dr. Rito Camp MD Work Phone: 1(062)385-035388 [place] [address] 09-15-2024 08:02-0500 Heart rate 85 /min Dr. Rito Camp MD Work Phone: 0(755)206-357988 [place] [address] 09-15-2024 08:02-0500 Respiratory rate 20 /min Dr. Rito Camp MD Work Phone: 6(778)700-107488 [place] [address] 09-15-2024 08:02-0500 SaO2% (BldA) [Mass fraction] 95 % Dr. Rito Camp MD Work Phone: 2(830)727-202532 [place] [address] 09-15-2024 08:02-0500 Systolic blood pressure 127 mm[Hg] Dr. Rito Camp MD Work Phone: 7(767)486-778888 [place] [address] 08-03-2024 09:16-0500 Body mass index (BMI) [Ratio] 19.91 kg/m2 Alex Brown APRN.CNP Work Phone: 3(248)339-528965 [place] [address] 08-03-2024 09:16-0500 Body weight 41.73 kg Alex Brown APRN.COMPOUNDING AND FINISHING SUPERVISOR Work Phone: [facility] 08-03-2024 09:16-0500 Diastolic blood pressure 78 mm[Hg] Alex Brown APRN.COMPOUNDING AND FINISHING SUPERVISOR Work Phone: [facility] 08-03-2024 09:16-0500 Heart rate 79 /min Alex Brown APRN.COMPOUNDING AND FINISHING SUPERVISOR Work Phone: [facility] 08-03-2024 09:16-0500 Systolic blood pressure 135 mm[Hg] Alex Brown APRN.COMPOUNDING AND FINISHING SUPERVISOR Work Phone: [facility] 07-31-2024 10:45-0500 Body mass index (BMI) [Ratio] 19.66 kg/m2 Shanna Newton APRN.COMPOUNDING AND FINISHING SUPERVISOR Work Phone: [facility] 07-31-2024 10:45-0500 Body temperature 99.3 [degF] Shanna Newton APRN.COMPOUNDING AND FINISHING SUPERVISOR Work Phone: [facility] 07-31-2024 10:45-0500 Body weight 41.2 kg Shanna Newton APRN.COMPOUNDING AND FINISHING SUPERVISOR Work Phone: [facility] 07-31-2024 10:45-0500 Diastolic blood pressure 88 mm[Hg] Shanna Newton APRN.COMPOUNDING AND FINISHING SUPERVISOR Work Phone: [facility] 07-31-2024 10:45-0500 Heart rate 96 /min Shanna Newton APRN.COMPOUNDING AND FINISHING SUPERVISOR Work Phone: [facility] 07-31-2024 10:45-0500 Respiratory rate 20 /min Shanna Newton APRN.COMPOUNDING AND FINISHING SUPERVISOR Work Phone: [facility] 07-31-2024 10:45-0500 SaO2% (BldA) [Mass fraction] 92 % Shanna Newton APRN.COMPOUNDING AND FINISHING SUPERVISOR Work Phone: [facility] 07-31-2024 10:45-0500 Systolic blood pressure 148 mm[Hg] Shanna Newton APRN.COMPOUNDING AND FINISHING SUPERVISOR Work Phone: [facility] 06-07-2024 11:08-0400 Body mass index (BMI) [Ratio] 18.84 kg/m2 Shanna Newton APRN.COMPOUNDING AND FINISHING SUPERVISOR Work Phone: [facility] 06-07-2024 11:08-0400 Body temperature 98.8 [degF] Shanna Newton APRN.COMPOUNDING AND FINISHING SUPERVISOR Work Phone: [facility] 06-07-2024 11:08-0400 Body weight 39.5 kg Shanna Newton APRN.COMPOUNDING AND FINISHING SUPERVISOR Work Phone: [facility] 06-07-2024 11:08-0400 Diastolic blood pressure 84 mm[Hg] Shanna Newton APRN.COMPOUNDING AND FINISHING SUPERVISOR Work Phone: [facility] 06-07-2024 11:08-0400 Heart rate 99 /min Shanna Newton APRN.COMPOUNDING AND FINISHING SUPERVISOR Work Phone: [facility] 06-07-2024 11:08-0400 Respiratory rate 22 /min Shanna Newton APRN.COMPOUNDING AND FINISHING SUPERVISOR Work Phone: [facility] 06-07-2024 11:08-0400 SaO2% (BldA) [Mass fraction] 95 % Shanna Newton APRN.COMPOUNDING AND FINISHING SUPERVISOR Work Phone: [facility] 06-07-2024 11:08-0400 Systolic blood pressure 154 mm[Hg] Shanna Newton APRN.COMPOUNDING AND FINISHING SUPERVISOR Work Phone: [facility] 06-05-2024 13:09-0400 Body mass index (BMI) [Ratio] 19.04 kg/m2 Rito Camp MD Work Phone: [facility] 06-05-2024 13:09-0400 Body weight 39.92 kg Rito Camp MD Work Phone: [facility] 06-05-2024 13:09-0400 Diastolic blood pressure 86 mm[Hg] Rito Cmap MD Work Phone: [facility] 06-05-2024 13:09-0400 Heart rate 82 /min Rito Camp MD Work Phone: [facility] 06-05-2024 13:09-0400 Respiratory rate 16 /min Rito Camp MD Work Phone: [facility] 06-05-2024 13:09-0400 Systolic blood pressure 132 mm[Hg] Rito Camp MD Work Phone: [facility] 06-03-2024 09:58-0400 Body mass index (BMI) [Ratio] 19.37 kg/m2 Mary Ann Dukes COLD STRIP FEEDER.COMPOUNDING AND FINISHING SUPERVISOR Work Phone: [facility] 06-03-2024 09:58-0400 Body temperature 98.49 [degF] Mary Ann Dukes COLD STRIP FEEDER.COMPOUNDING AND FINISHING SUPERVISOR Work Phone: [facility] 06-03-2024 09:58-0400 Body weight 40.6 kg Mary Ann Dukes COLD STRIP FEEDER.COMPOUNDING AND FINISHING SUPERVISOR Work Phone: [facility] 06-03-2024 09:58-0400 Diastolic blood pressure 88 mm[Hg] Mary Ann Dukes COLD STRIP FEEDER.COMPOUNDING AND FINISHING SUPERVISOR Work Phone: [facility] 06-03-2024 09:58-0400 Heart rate 85 /min Mary Ann Dukes COLD STRIP FEEDER.COMPOUNDING AND FINISHING SUPERVISOR Work Phone: [facility] 06-03-2024 09:58-0400 Respiratory rate 20 /min Mary Ann Dukes COLD STRIP FEEDER.COMPOUNDING AND FINISHING SUPERVISOR Work Phone: [facility] 06-03-2024 09:58-0400 SaO2% (BldA) [Mass fraction] 94 % Mary Ann Dukes COLD STRIP FEEDER.COMPOUNDING AND FINISHING SUPERVISOR Work Phone: [facility] 06-03-2024 09:58-0400 Systolic blood pressure 142 mm[Hg] Mary Ann Dukes COLD STRIP FEEDER.COMPOUNDING AND FINISHING SUPERVISOR Work Phone: [facility] 04-14-2024 09:51-0400 Body mass index (BMI) [Ratio] 19.26 kg/m2 Alex Brown COLD STRIP FEEDER.COMPOUNDING AND FINISHING SUPERVISOR Work Phone: [facility] 04-14-2024 09:51-0400 Body weight 40.37 kg Alex Brown COLD STRIP FEEDER.COMPOUNDING AND FINISHING SUPERVISOR Work Phone: [facility] 04-14-2024 09:51-0400 Diastolic blood pressure 73 mm[Hg] Alex Brown COLD STRIP FEEDER.COMPOUNDING AND FINISHING SUPERVISOR Work Phone: [facility] 04-14-2024 09:51-0400 Heart rate 98 /min Alex Brown COLD STRIP FEEDER.COMPOUNDING AND FINISHING SUPERVISOR Work Phone: [facility] 04-14-2024 09:51-0400 Respiratory rate 14 /min Alex Brown COLD STRIP FEEDER.COMPOUNDING AND FINISHING SUPERVISOR Work Phone: [facility] 04-14-2024 09:51-0400 Systolic blood pressure 143 mm[Hg] Alex Brown COLD STRIP FEEDER.COMPOUNDING AND FINISHING SUPERVISOR Work Phone: [facility] 03-26-2024 11:33-0400 Body mass index (BMI) [Ratio] 19.69 kg/m2 Alex Brown COLD STRIP FEEDER.COMPOUNDING AND FINISHING SUPERVISOR Work Phone: [facility] 03-26-2024 11:33-0400 Body weight 41.28 kg Alex Brown COLD STRIP FEEDER.COMPOUNDING AND FINISHING SUPERVISOR Work Phone: [facility] 03-26-2024 11:33-0400 Diastolic blood pressure 86 mm[Hg] Alex Brown COLD STRIP FEEDER.COMPOUNDING AND FINISHING SUPERVISOR Work Phone: [facility] 03-26-2024 11:33-0400 Heart rate 92 /min Alex Brown COLD STRIP FEEDER.COMPOUNDING AND FINISHING SUPERVISOR Work Phone: [facility] 03-26-2024 11:33-0400 Respiratory rate 14 /min Alex Brown COLD STRIP FEEDER.COMPOUNDING AND FINISHING SUPERVISOR Work Phone: [facility] 03-26-2024 11:33-0400 Systolic blood pressure 150 mm[Hg] Alex Brown COLD STRIP FEEDER.COMPOUNDING AND FINISHING SUPERVISOR Work Phone: [facility] 03-18-2024 10:42-0400 Body mass index (BMI) [Ratio] 19.91 kg/m2 Sweetie Romeo COLD STRIP FEEDER.COMPOUNDING AND FINISHING SUPERVISOR Work Phone: [facility] 03-18-2024 10:42-0400 Body temperature 98.91 [degF] Sweetie Romeo COLD STRIP FEEDER.COMPOUNDING AND FINISHING SUPERVISOR Work Phone: [facility] 03-18-2024 10:42-0400 Body weight 41.73 kg Sweetie Podlogar COLD STRIP FEEDER.COMPOUNDING AND FINISHING SUPERVISOR Work Phone: [facility] 03-18-2024 10:42-0400 Diastolic blood pressure 76 mm[Hg] Sweetie Podlogar COLD STRIP FEEDER.COMPOUNDING AND FINISHING SUPERVISOR Work Phone: [facility] 03-18-2024 10:42-0400 Heart rate 79 /min Sweetie Podlogar COLD STRIP FEEDER.COMPOUNDING AND FINISHING SUPERVISOR Work Phone: [facility] 03-18-2024 10:42-0400 Respiratory rate 18 /min Sweetie Podlogar COLD STRIP FEEDER.COMPOUNDING AND FINISHING SUPERVISOR Work Phone: [facility] 03-18-2024 10:42-0400 SaO2% (BldA) [Mass fraction] 94 % Sweetie Podlogar COLD STRIP FEEDER.COMPOUNDING AND FINISHING SUPERVISOR Work Phone: [facility] 03-18-2024 10:42-0400 Systolic blood pressure 142 mm[Hg] Sweetie Podlogar COLD STRIP FEEDER.COMPOUNDING AND FINISHING SUPERVISOR Work Phone: [facility] 01-01-2024 07:45-0400 Body height 144.[address] Rito Camp Work Phone: [facility] 01-01-2024 07:45-0400 Body mass index (BMI) [Ratio] 19.5 kg/m2 Dr. Rito Camp Work Phone: [facility] 01-01-2024 07:45-0400 Body temperature 96.9 [degF] Dr. Rito Camp Work Phone: [facility] 01-01-2024 07:45-0400 Body weight 40.[address] Rito Camp Work Phone: [facility] 01-01-2024 07:45-0400 Diastolic blood pressure 77 mm[Hg] Dr. Rito Camp Work Phone: [facility] 01-01-2024 07:45-0400 Heart rate 90 /min Dr. Rito Camp Work Phone: [facility] 01-01-2024 07:45-0400 Respiratory rate 20 /min Dr. Rito Camp Work Phone: [facility] 01-01-2024 07:45-0400 SaO2% (BldA) [Mass fraction] 95 % Dr. Rito Camp Work Phone: [facility] 01-01-2024 07:45-0400 Systolic blood pressure 135 mm[Hg] Dr. Rito Camp Work Phone: [facility] 12-23-2023 09:58-0400 Body mass index (BMI) [Ratio] 19.75 kg/m2 Mary Ann Dukes COLD STRIP FEEDER.COMPOUNDING AND FINISHING SUPERVISOR Work Phone: [facility] 12-23-2023 09:58-0400 Body temperature 99.1 [degF] Mary Ann Dukes COLD STRIP FEEDER.COMPOUNDING AND FINISHING SUPERVISOR Work Phone: [facility] 12-23-2023 09:58-0400 Body weight 41.4 kg Mary Ann Dukes COLD STRIP FEEDER.COMPOUNDING AND FINISHING SUPERVISOR Work Phone: [facility] 12-23-2023 09:58-0400 Diastolic blood pressure 86 mm[Hg] Mary Ann Dukes COLD STRIP FEEDER.COMPOUNDING AND FINISHING SUPERVISOR Work Phone: [facility] 12-23-2023 09:58-0400 Heart rate 105 /min Mary Ann Dukes COLD STRIP FEEDER.COMPOUNDING AND FINISHING SUPERVISOR Work Phone: [facility] 12-23-2023 09:58-0400 Respiratory rate 21 /min Mray Ann Dukes COLD STRIP FEEDER.COMPOUNDING AND FINISHING SUPERVISOR Work Phone: [facility] 12-23-2023 09:58-0400 SaO2% (BldA) [Mass fraction] 93 % Mary Ann Dukes COLD STRIP FEEDER.COMPOUNDING AND FINISHING SUPERVISOR Work Phone: [facility] 12-23-2023 09:58-0400 Systolic blood pressure 122 mm[Hg] Mary Ann Dukes COLD STRIP FEEDER.COMPOUNDING AND FINISHING SUPERVISOR Work Phone: [facility] 12-22-2023 10:22-0400 Body temperature 98.91 [degF] Teresa Athy PA-C Work Phone: [facility] 12-22-2023 10:22-0400 Body weight 41 kg Teresa Athy PA-C Work Phone: [facility] 12-22-2023 10:22-0400 Diastolic blood pressure 78 mm[Hg] Teresa Athy PA-C Work Phone: [facility] 12-22-2023 10:22-0400 Heart rate 96 /min Teresa Athy PA-C Work Phone: [facility] 12-22-2023 10:22-0400 Respiratory rate 22 /min Teresa Athy PA-C Work Phone: [facility] 12-22-2023 10:22-0400 SaO2% (BldA) [Mass fraction] 96 % Teresa Athy PA-C Work Phone: [facility] 12-22-2023 10:22-0400 Systolic blood pressure 131 mm[Hg] Teresa Athy PA-C Work Phone: [facility] 10-15-2023 08:43-0500 Body temperature 98.01 [degF] Shanita Green PA-C Work Phone: [facility] 10-15-2023 08:43-0500 Body weight 42.19 kg Shanita Green PA-C Work Phone: [facility] 10-15-2023 08:43-0500 Diastolic blood pressure 80 mm[Hg] Shanita Green PA-C Work Phone: [facility] 10-15-2023 08:43-0500 Heart rate 110 /min Shanita Green PA-C Work Phone: [facility] 10-15-2023 08:43-0500 Respiratory rate 16 /min Shanita Green PA-C Work Phone: [facility] 10-15-2023 08:43-0500 Systolic blood pressure 122 mm[Hg] Shanita Green PA-C Work Phone: [facility] 06-11-2023 09:23-0400 Body height 144.8 cm Toi Falcon MD Work Phone: [facility] 06-11-2023 09:23-0400 Body temperature 97.3 [degF] Toi Falcon MD Work Phone: [facility] 06-11-2023 09:23-0400 Body weight 39.46 kg Toi Falcon MD Work Phone: [facility] 06-11-2023 09:23-0400 Diastolic blood pressure 72 mm[Hg] Toi Falcon MD Work Phone: [facility] 06-11-2023 09:23-0400 Heart rate 94 /min Toi Falcon MD Work Phone: [facility] 06-11-2023 09:23-0400 SaO2% (BldA) [Mass fraction] 94 % Toi Falcon MD Work Phone: [facility] 06-11-2023 09:23-0400 Systolic blood pressure 112 mm[Hg] Toi Falcon MD Work Phone: [facility] 06-08-2023 11:16-0400 Diastolic blood pressure 80 mm[Hg] Rito Camp MD Work Phone: [facility] 06-08-2023 11:16-0400 Systolic blood pressure 154 mm[Hg] Rito Camp MD Work Phone: [facility] 06-08-2023 10:43-0400 Body temperature 98.91 [degF] Rito Camp MD Work Phone: [facility] 06-08-2023 10:43-0400 Body weight 40.82 kg Rito Camp MD Work Phone: [facility] 06-08-2023 10:43-0400 Heart rate 97 /min Rito Camp MD Work Phone: [facility] 06-08-2023 10:43-0400 Respiratory rate 18 /min Rito Camp MD Work Phone: [facility] 06-08-2023 10:43-0400 SaO2% (BldA) [Mass fraction] 95 % Rito Camp MD Work Phone: [facility] 06-04-2023 10:46-0400 Body weight 39.92 kg Alex Brown COLD STRIP FEEDER.COMPOUNDING AND FINISHING SUPERVISOR Work Phone: [facility] 06-04-2023 10:46-0400 Diastolic blood pressure 80 mm[Hg] Alex Brown COLD STRIP FEEDER.COMPOUNDING AND FINISHING SUPERVISOR Work Phone: [facility] 06-04-2023 10:46-0400 Heart rate 104 /min Alex Brown COLD STRIP FEEDER.COMPOUNDING AND FINISHING SUPERVISOR Work Phone: [facility] 06-04-2023 10:46-0400 Respiratory rate 14 /min Alex Brown COLD STRIP FEEDER.COMPOUNDING AND FINISHING SUPERVISOR Work Phone: [facility] 06-04-2023 10:46-0400 Systolic blood pressure 118 mm[Hg] Alex Brown COLD STRIP FEEDER.COMPOUNDING AND FINISHING SUPERVISOR Work Phone: [facility] 06-02-2023 13:45-0400 Body temperature 98.5 [degF] Dr. Rito Camp Work Phone: [facility] 06-02-2023 13:45-0400 Diastolic blood pressure 82 mm[Hg] Dr. Rito Camp Work Phone: 4(860)317-442532 [place] [address] 06-02-2023 13:45-0400 Heart rate 98 /min Dr. Rito Camp Work Phone: [facility] 06-02-2023 13:45-0400 Respiratory rate 18 /min Dr. Rito Camp Work Phone: [facility] 06-02-2023 13:45-0400 SaO2% (BldA) [Mass fraction] 95 % Dr. Rito Camp Work Phone: [facility] 06-02-2023 13:45-0400 Systolic blood pressure 135 mm[Hg] Dr. Rito Camp Work Phone: 2(271)103-411932 [place] [address] 06-01-2023 11:41-0400 Body height 144.[address] Rito Camp Work Phone: 9(618)410-431332 [place] [address] 06-01-2023 11:41-0400 Body weight 40.[address] Rito Camp Work Phone: 7(575)464-141288 [place] [address] 06-01-2023 02:55-0400 Body mass index (BMI) [Ratio] 19.2 kg/m2 Dr. Rito Camp Work Phone: 9(016)446-523688 [place] [address] 06-01-2023 01:29-0400 Body temperature 99 [degF] Dr. Rito Camp Work Phone: 5(430)750-928188 [place] [address] 06-01-2023 01:29-0400 Diastolic blood pressure 93 mm[Hg] Dr. Rito Camp Work Phone: 2(115)238-878288 [place] [address] 06-01-2023 01:29-0400 Heart rate 91 /min Dr. Rito Camp Work Phone: 9(138)609-410632 [place] [address] 06-01-2023 01:29-0400 Respiratory rate 18 /min Dr. Rito Camp Work Phone: 8(139)526-167888 [place] [address] 06-01-2023 01:29-0400 SaO2% (BldA) [Mass fraction] 92 % Dr. Rito Camp Work Phone: 7(865)444-275510 [address] 06-01-2023 01:29-0400 Systolic blood pressure 150 mm[Hg] Dr. Rito Camp Work Phone: 7(110)457-905732 [place] [address] 05-31-2023 21:50-0400 Body height 147.[address] Rito Camp Work Phone: 1(677)386-164110 [address] 05-31-2023 21:50-0400 Body mass index (BMI) [Ratio] 19.2 kg/m2 Dr. Rito Camp Work Phone: 9(432)295-759532 [place] [address] 05-31-2023 21:50-0400 Body weight 41.[address] Rito Camp Work Phone: 9(128)058-309832 [place] [address] 04-17-2023 08:02-0400 Body mass index (BMI) [Ratio] 19 kg/m2 Dr. Rito Camp Work Phone: 8(016)956-572488 [place] [address] 04-17-2023 08:02-0400 Body temperature 97.5 [degF] Dr. Rito Camp Work Phone: 2(378)009-576088 [place] [address] 04-17-2023 08:02-0400 Body weight 39.[address] Rito Camp Work Phone: 5(604)546-119788 [place] [address] 04-17-2023 08:02-0400 Diastolic blood pressure 80 mm[Hg] Dr. Rito Camp Work Phone: 9(311)148-371588 [place] [address] 04-17-2023 08:02-0400 Heart rate 79 /min Dr. Rito Camp Work Phone: 6(879)331-274388 [place] [address] 04-17-2023 08:02-0400 Respiratory rate 18 /min Dr. Rito Camp Work Phone: 6(129)718-871588 [place] [address] 04-17-2023 08:02-0400 SaO2% (BldA) [Mass fraction] 96 % Dr. Rito Camp Work Phone: 1(820)016-614588 [place] [address] 04-17-2023 08:02-0400 Systolic blood pressure 135 mm[Hg] Dr. Rito Camp Work Phone: 1(264)181-479088 [place] [address] 02-25-2023 09:26-0400 Body mass index (BMI) [Ratio] 19.3 kg/m2 Dr. Rito Camp Work Phone: 2(598)093-148388 [place] [address] 02-25-2023 09:26-0400 Body temperature 98.4 [degF] Dr. Rito Camp Work Phone: 3(125)574-130888 [place] [address] 02-25-2023 09:26-0400 Body weight 40.[address] Rito Camp Work Phone: 1(259)548-167088 [place] [address] 02-25-2023 09:26-0400 Diastolic blood pressure 80 mm[Hg] Dr. Rito Camp Work Phone: 5(891)927-830988 [place] [address] 02-25-2023 09:26-0400 Heart rate 86 /min Dr. Rito Camp Work Phone: [facility] 02-25-2023 09:26-0400 Respiratory rate 16 /min Dr. Rito Camp Work Phone: [facility] 02-25-2023 09:26-0400 SaO2% (BldA) [Mass fraction] 94 % Dr. Rito Camp Work Phone: [facility] 02-25-2023 09:26-0400 Systolic blood pressure 130 mm[Hg] Dr. Rito Camp Work Phone: [facility] 02-20-2023 09:09-0400 Diastolic blood pressure 83 mm[Hg] Shanita Green PA-C Work Phone: [facility] 02-20-2023 09:09-0400 Heart rate 85 /min Shanita Green PA-C Work Phone: [facility] 02-20-2023 09:09-0400 Systolic blood pressure 130 mm[Hg] Shanita Green PA-C Work Phone: [facility] 02-20-2023 08:20-0400 Body temperature 98.1 [degF] Shanita Green PA-C Work Phone: [facility] 02-20-2023 08:20-0400 Respiratory rate 16 /min Shanita Green PA-C Work Phone: [facility] 02-15-2023 09:31-0400 Body temperature 98.8 [degF] Alex Brown APRN.COMPOUNDING AND FINISHING SUPERVISOR Work Phone: [facility] 02-15-2023 09:31-0400 Body weight 40.46 kg Alex Brown APRN.COMPOUNDING AND FINISHING SUPERVISOR Work Phone: [facility] 02-15-2023 09:31-0400 Diastolic blood pressure 82 mm[Hg] Alex Brown APRN.COMPOUNDING AND FINISHING SUPERVISOR Work Phone: [facility] 02-15-2023 09:31-0400 Heart rate 98 /min Alex Brown APRN.COMPOUNDING AND FINISHING SUPERVISOR Work Phone: [facility] 02-15-2023 09:31-0400 Respiratory rate 20 /min Alex Brown COLD STRIP FEEDER.COMPOUNDING AND FINISHING SUPERVISOR Work Phone: [facility] 02-15-2023 09:31-0400 SaO2% (BldA) [Mass fraction] 97 % Alex Brown COLD STRIP FEEDER.COMPOUNDING AND FINISHING SUPERVISOR Work Phone: [facility] 02-15-2023 09:31-0400 Systolic blood pressure 128 mm[Hg] Alex Brown COLD STRIP FEEDER.COMPOUNDING AND FINISHING SUPERVISOR Work Phone: [facility] 02-13-2023 00:12-0400 Diastolic blood pressure 96 mm[Hg] Dr. Rito Camp Work Phone: [facility] 02-13-2023 00:12-0400 Systolic blood pressure 148 mm[Hg] Dr. Rito Camp Work Phone: [facility] 02-12-2023 21:58-0400 Body mass index (BMI) [Ratio] 20.9 kg/m2 Dr. Rito Camp Work Phone: [facility] 02-12-2023 21:58-0400 Body temperature 97.3 [degF] Dr. Rito Camp Work Phone: [facility] 02-12-2023 21:58-0400 Body weight 43.[address] Rito Camp Work Phone: [facility] 02-12-2023 21:58-0400 Heart rate 120 /min Dr. Rito Camp Work Phone: [facility] 02-12-2023 21:58-0400 Respiratory rate 16 /min Dr. Rito Camp Work Phone: [facility] 02-12-2023 21:58-0400 SaO2% (BldA) [Mass fraction] 92 % Dr. Rito Camp Work Phone: [facility] 11-19-2022 10:01-0400 Body weight 40.37 kg Rito Camp MD Work Phone: [facility] 11-19-2022 10:01-0400 Diastolic blood pressure 82 mm[Hg] Rito Camp MD Work Phone: [facility] 11-19-2022 10:01-0400 Heart rate 76 /min Rito Camp MD Work Phone: [facility] 11-19-2022 10:01-0400 Respiratory rate 18 /min Rito Camp MD Work Phone: [facility] 11-19-2022 10:01-0400 Systolic blood pressure 122 mm[Hg] Rito Camp MD Work Phone: [facility] 09-27-2022 09:52-0500 Body height 144.8 cm Rito Camp MD Work Phone: [facility] 09-27-2022 09:52-0500 Body weight 42.19 kg Rito Camp MD Work Phone: [facility] 09-27-2022 09:52-0500 Diastolic blood pressure 80 mm[Hg] Rito Camp MD Work Phone: [facility] 09-27-2022 09:52-0500 Heart rate 82 /min Rito Camp MD Work Phone: [facility] 09-27-2022 09:52-0500 Respiratory rate 18 /min Rito Camp MD Work Phone: [facility] 09-27-2022 09:52-0500 Systolic blood pressure 130 mm[Hg] Rito Camp MD Work Phone: [facility] 07-31-2022 09:32-0500 Body height 144.8 cm Ashleigh Negrete APRN.COMPOUNDING AND FINISHING SUPERVISOR Work Phone: [facility] 07-31-2022 09:32-0500 Body weight 42.64 kg Ashleigh Negrete APRN.COMPOUNDING AND FINISHING SUPERVISOR Work Phone: [facility] 07-31-2022 09:32-0500 Diastolic blood pressure 68 mm[Hg] Ashleigh Negrete COLD STRIP FEEDER.COMPOUNDING AND FINISHING SUPERVISOR Work Phone: [facility] 07-31-2022 09:32-0500 Systolic blood pressure 100 mm[Hg] Ashleigh Negrete COLD STRIP FEEDER.COMPOUNDING AND FINISHING SUPERVISOR Work Phone: [facility] 07-09-2022 10:42-0500 Body temperature 98.91 [degF] Sweetie Podlogar COLD STRIP FEEDER.COMPOUNDING AND FINISHING SUPERVISOR Work Phone: [facility] 07-09-2022 10:42-0500 Diastolic blood pressure 72 mm[Hg] Sweetie Podlogar COLD STRIP FEEDER.COMPOUNDING AND FINISHING SUPERVISOR Work Phone: [facility] 07-09-2022 10:42-0500 Heart rate 91 /min Sweetie Podlogar COLD STRIP FEEDER.COMPOUNDING AND FINISHING SUPERVISOR Work Phone: [facility] 07-09-2022 10:42-0500 Respiratory rate 20 /min Sweetie Podlogar COLD STRIP FEEDER.COMPOUNDING AND FINISHING SUPERVISOR Work Phone: [facility] 07-09-2022 10:42-0500 SaO2% (BldA) [Mass fraction] 97 % Sweetie Podlogar COLD STRIP FEEDER.COMPOUNDING AND FINISHING SUPERVISOR Work Phone: [facility] 07-09-2022 10:42-0500 Systolic blood pressure 128 mm[Hg] Sweetie Podlogar COLD STRIP FEEDER.COMPOUNDING AND FINISHING SUPERVISOR Work Phone: [facility] 07-04-2022 09:42-0400 Body temperature 99.19 [degF] Rito Sheridan COLD STRIP FEEDER.COMPOUNDING AND FINISHING SUPERVISOR Work Phone: [facility] 07-04-2022 09:42-0400 Body weight 42.27 kg Rito Sheridan COLD STRIP FEEDER.COMPOUNDING AND FINISHING SUPERVISOR Work Phone: [facility] 07-04-2022 09:42-0400 Diastolic blood pressure 86 mm[Hg] Rito Sheridan COLD STRIP FEEDER.COMPOUNDING AND FINISHING SUPERVISOR Work Phone: [facility] 07-04-2022 09:42-0400 Heart rate 95 /min Rito Sheridan COLD STRIP FEEDER.COMPOUNDING AND FINISHING SUPERVISOR Work Phone: [facility] 07-04-2022 09:42-0400 Respiratory rate 20 /min Rito Sheridan APRN.COMPOUNDING AND FINISHING SUPERVISOR Work Phone: [facility] 07-04-2022 09:42-0400 SaO2% (BldA) [Mass fraction] 98 % Rito Sheriadn COLD STRIP FEEDER.COMPOUNDING AND FINISHING SUPERVISOR Work Phone: [facility] 07-04-2022 09:42-0400 Systolic blood pressure 132 mm[Hg] Rito Sheridan COLD STRIP FEEDER.COMPOUNDING AND FINISHING SUPERVISOR Work Phone: [facility] 05-28-2022 10:18-0400 Body temperature 98.1 [degF] Shanita Green PA-C Work Phone: [facility] 05-28-2022 10:18-0400 Body weight 41.73 kg Shanita Green PA-C Work Phone: [facility] 05-28-2022 10:18-0400 Diastolic blood pressure 68 mm[Hg] Shanita Green PA-C Work Phone: [facility] 05-28-2022 10:18-0400 Heart rate 76 /min Shanita Green PA-C Work Phone: [facility] 05-28-2022 10:18-0400 Respiratory rate 16 /min Shanita Green PA-C Work Phone: [facility] 05-28-2022 10:18-0400 Systolic blood pressure 94 mm[Hg] Shanita Green PA-C Work Phone: [facility] 04-16-2022 06:37-0400 Body height 144.[address] Rito Camp Work Phone: [facility] Work Phone: 04-16-2022 06:37-0400 Body mass index (BMI) [Ratio] 20.3 kg/m2 Dr. Rito Camp Work Phone: [facility] Work Phone: 04-16-2022 06:37-0400 Body temperature 97.8 [degF] Dr. Rito Camp Work Phone: [facility] Work Phone: 04-16-2022 06:37-0400 Body weight 42.[address] Rito Camp Work Phone: [facility] Work Phone: 04-16-2022 06:37-0400 Diastolic blood pressure 75 mm[Hg] Dr. Rito Camp Work Phone: [facility] Work Phone: 04-16-2022 06:37-0400 Heart rate 78 /min Dr. Rito Camp Work Phone: [facility] Work Phone: 04-16-2022 06:37-0400 Respiratory rate 16 /min Dr. Rito Camp Work Phone: [facility] Work Phone: 04-16-2022 06:37-0400 SaO2% (BldA) [Mass fraction] 93 % Dr. Rito Camp Work Phone: [facility] Work Phone: 04-16-2022 06:37-0400 Systolic blood pressure 118 mm[Hg] Dr. Rito Camp Work Phone: [facility] Work Phone: 03-23-2022 07:44-0400 Body temperature 99 [degF] Shanita Green PA-C Work Phone: [facility] 03-23-2022 07:44-0400 Body weight 42.64 kg Shanita Green PA-C Work Phone: [facility] 03-23-2022 07:44-0400 Diastolic blood pressure 68 mm[Hg] Shanita Green PA-C Work Phone: [facility] 03-23-2022 07:44-0400 Heart rate 72 /min Shanita Green PA-C Work Phone: [facility] 03-23-2022 07:44-0400 Respiratory rate 16 /min Shanita Green PA-C Work Phone: [facility] 03-23-2022 07:44-0400 Systolic blood pressure 100 mm[Hg] Shanita Green PA-C Work Phone: [facility] 03-18-2022 15:30-0400 Body temperature 97.1 [degF] Dr. Rito Camp Work Phone: [facility] Work Phone: 03-18-2022 15:30-0400 Diastolic blood pressure 84 mm[Hg] Dr. Rito Camp Work Phone: [facility] Work Phone: 03-18-2022 15:30-0400 Heart rate 92 /min Dr. Rito Camp Work Phone: [facility] Work Phone: 03-18-2022 15:30-0400 Respiratory rate 18 /min Dr. Rito Camp Work Phone: [facility] Work Phone: 03-18-2022 15:30-0400 SaO2% (BldA) [Mass fraction] 96 % Dr. Rito Camp Work Phone: [facility] Work Phone: 03-18-2022 15:30-0400 Systolic blood pressure 140 mm[Hg] Dr. Rito Camp Work Phone: [facility] Work Phone: 03-18-2022 06:00-0400 Body weight 42.[address] Rito Camp Work Phone: [facility] Work Phone: 03-17-2022 22:51-0400 Body height 144.[address] Rito Camp Work Phone: [facility] Work Phone: 03-17-2022 22:51-0400 Body mass index (BMI) [Ratio] 20.1 kg/m2 Dr. Rito Camp Work Phone: [facility] Work Phone: 03-17-2022 21:48-0400 Body temperature 98.8 [degF] Dr. Rito Camp Work Phone: [facility] Work Phone: 03-17-2022 21:48-0400 Diastolic blood pressure 89 mm[Hg] Dr. Rito Camp Work Phone: [facility] Work Phone: 03-17-2022 21:48-0400 Heart rate 95 /min Dr. Rito Camp Work Phone: [facility] Work Phone: 03-17-2022 21:48-0400 Respiratory rate 18 /min Dr. Rito Camp Work Phone: [facility] Work Phone: 03-17-2022 21:48-0400 SaO2% (BldA) [Mass fraction] 95 % Dr. Rito Camp Work Phone: [facility] Work Phone: 03-17-2022 21:48-0400 Systolic blood pressure 160 mm[Hg] Dr. Rito Camp Work Phone: [facility] Work Phone: 03-17-2022 17:25-0400 Body height 144.[address] Rito Camp Work Phone: [facility] Work Phone: 03-17-2022 17:25-0400 Body mass index (BMI) [Ratio] 20.5 kg/m2 Dr. Rito Camp Work Phone: [facility] Work Phone: 03-17-2022 17:25-0400 Body weight 43.[address] Rito Camp Work Phone: [facility] Work Phone: 03-14-2022 10:14-0400 Body temperature 98.29 [degF] Bernard Elliott MD Work Phone: [facility] 03-14-2022 10:14-0400 Body weight 43.55 kg Bernard Elliott MD Work Phone: [facility] 03-14-2022 10:14-0400 Diastolic blood pressure 60 mm[Hg] Bernard Elliott MD Work Phone: [facility] 03-14-2022 10:14-0400 Heart rate 88 /min Bernard Elliott MD Work Phone: [facility] 03-14-2022 10:14-0400 Respiratory rate 16 /min Bernard Elliott MD Work Phone: [facility] 03-14-2022 10:14-0400 SaO2% (BldA) [Mass fraction] 96 % Bernard Elliott MD Work Phone: [facility] 03-14-2022 10:14-0400 Systolic blood pressure 122 mm[Hg] Bernard Elliott MD Work Phone: [facility] 01-10-2022 09:47-0400 Body temperature 98.49 [degF] Shanna Newton APRN.COMPOUNDING AND FINISHING SUPERVISOR Work Phone: [facility] 01-10-2022 09:47-0400 Body weight 43.18 kg Shanna Newton APRN.COMPOUNDING AND FINISHING SUPERVISOR Work Phone: [facility] 01-10-2022 09:47-0400 Diastolic blood pressure 80 mm[Hg] Shanna Newton APRN.COMPOUNDING AND FINISHING SUPERVISOR Work Phone: [facility] 01-10-2022 09:47-0400 Heart rate 84 /min Shanna Newton APRN.COMPOUNDING AND FINISHING SUPERVISOR Work Phone: [facility] 01-10-2022 09:47-0400 Respiratory rate 18 /min Shanna Newton APRN.COMPOUNDING AND FINISHING SUPERVISOR Work Phone: [facility] 01-10-2022 09:47-0400 SaO2% (BldA) [Mass fraction] 97 % Shanna Newton APRN.COMPOUNDING AND FINISHING SUPERVISOR Work Phone: [facility] 01-10-2022 09:47-0400 Systolic blood pressure 132 mm[Hg] Shanna Newton APRN.COMPOUNDING AND FINISHING SUPERVISOR Work Phone: [facility] 12-19-2021 10:28-0400 Body temperature 98.8 [degF] Shanita Green PA-C Work Phone: [facility] 12-19-2021 10:28-0400 Body weight 44.27 kg Shanita Green PA-C Work Phone: [facility] 12-19-2021 10:28-0400 Diastolic blood pressure 60 mm[Hg] Shanita Green PA-C Work Phone: [facility] 12-19-2021 10:28-0400 Heart rate 63 /min Shanitajonelle Green PA-C Work Phone: [facility] 12-19-2021 10:28-0400 Respiratory rate 18 /min Shanita Green PA-C Work Phone: [facility] 12-19-2021 10:28-0400 Systolic blood pressure 104 mm[Hg] Shanita Green PA-C Work Phone: [facility] Encounters Encounter Date Encounter Type Care Provider Facility Start: 07-06-2025 End: 07-06-2025 ambulatory RITO CAMP Facility:[facility] Start: 07-05-2025 ambulatory RITO Wang ty:[facility] Start: 06-08-2025 End: 06-08-[address] Pieter Camacho MD -[facility] Start: 06-08-2025 End: 06-08-[address] Rito Camp MD Work Phone: -[facility] Start: 05-27-2025 End: 05-27-2025 ambulatory RITO CAMP Facility:[facility] Start: 05-24-2025 ambulatory RITO Wang ty:[facility] Start: 05-16-2025 End: 05-16-2025 Subsequent hospital visit by physician [facility] [place] Work Phone: Radiology Comment on above: Injury of right wris t, initial encounter [S69.91XA] Start: 05-16-2025 End: 05-16-2025 Patient encounter procedure Ky Shaver COLD STRIP FEEDER.COMPOUNDING AND FINISHING SUPERVISOR Work Phone: [facility] [place] Comment on above: Injury of right wris t, initial encounter (Primary Dx) Start: 05-16-2025 End: 05-16-2025 ambulatory [place] SHAVER Facility:[facility] Start: 05-14-2025 End: 05-14-2025 Telephone encounter Rito Camp MD Work Phone: [facility] [place] Comment on above: Insurance Authorizat ion Start: 05-14-2025 End: 05-14-2025 Patient encounter procedure Alex Brown COLD STRIP FEEDER.COMPOUNDING AND FINISHING SUPERVISOR Work Phone: [facility] [place] Comment on above: Lumbar radiculopathy (Primary Dx); Lumbar back pain; Radiculopathy of lumbar region Start: 05-14-2025 End: 05-14-2025 ambulatory RITO CAMP Facility:[facility] Start: 05-11-2025 End: 05-11-2025 Refill Rito Camp MD Work Phone: Family [facility] [place] Comment on above: Refill Request Start: 05-10-2025 End: 05-10-[address] Rito Camp MD Work Phone: -Laboratory Specimen Start: 05-10-2025 End: 05-10-2025 Patient encounter procedure Angella AVILES -Laboratory Specimen Work Phone: Start: 05-10-2025 End: 05-10-2025 ambulatory Rito Camp Facility:[facility] Start: 05-07-2025 End: 05-07-2025 Chart abstracting Rito Camp MD Work Phone: Family [facility] [place] Comment on above: Abstract (HealthPoin t rehab evaluation) Start: 05-06-2025 Registered Recurring Angella AVILES -Physical Therapy Work Phone: Start: 05-06-2025 ambulatory Rito Camp Facility :[facility] Start: 05-04-2025 End: 05-04-2025 Office outpatient visit 15 minutes Shanita Green PA-C Work Phone: Family [facility] [place] Comment on above: Lumbar radiculopathy (Primary Dx); Lumbar back pain; Radiculopathy of lumbar region Start: 05-04-2025 End: 05-04-2025 ambulatory RITO CAMP Facility:[facility] Start: 04-20-2025 End: 04-20-2025 Patient encounter procedure Angella AVILES -[facility] Work Phone: Start: 04-20-2025 End: 04-20-[address] Rito Camp MD Work Phone: -[facility] Start: 04-05-2025 End: 04-05-2025 Telephone encounter Shanita Green PA-C Work Phone: [facility] [place] Comment on above: Medication Problem Start: 03-31-2025 End: 03-31-2025 Chart abstracting Rito Camp MD Work Phone: [facility] [place] Comment on above: Abstract (GI Procedu re and GI OV note - Dr. Gill) Start: 03-31-2025 Non-patient / Non-visit Robe Garrett nd DO -[facility] Start: 03-31-2025 End: 03-31-2025 Admission to same day surgery center Robe Gill DO -Endoscopy Work Phone: Start: 03-31-2025 End: 03-31-[address] Rito Camp MD Work Phone: -Endoscopy Start: 03-22-2025 End: 03-22-2025 Refill Rito Camp MD Work Phone: [facility] [place] Comment on above: Refill Request Start: 03-18-2025 End: 03-26-2025 Follow-up encounter Shanita Green PA-C Work Phone: [facility] [place] Start: 03-17-2025 End: 03-17-2025 Telephone encounter Rito Camp MD Work Phone: Family [facility] [place] Comment on above: Insurance Authorizat ion Start: 03-15-2025 End: 03-15-2025 Office outpatient visit 25 minutes Shanita Green PA-C Work Phone: [facility] [place] Comment on above: Psychophysiological insomnia (Primary Dx); Easy bruising; Lumbar radiculopathy Start: 03-15-2025 End: 03-15-2025 ambulatory SHANITA GREEN Facility:[facility] Start: 03-02-2025 Non-patient / Non-visit Dr. Kota Shore MD -[facility] Work Phone: Start: 02-09-2025 End: 02-09-2025 Patient encounter procedure YELLOW PAGES SPACE SALESPERSON Letha Emery -[facility] Work Phone: Start: 02-09-2025 End: 02-09-[address] Rito Camp MD Work Phone: [facility] Work Phone: Start: 01-21-2025 End: 01-21-2025 ambulatory RITO CAMP Facility:[facility] Start: 01-05-2025 End: 01-05-2025 Follow-up encounter Shanita Green PA-C Work Phone: [facility] [place] Start: 01-05-2025 End: 01-05-2025 Subsequent hospital visit by physician Xr [facility] [place] Work Phone: Radiology Comment on above: Injury of right toe, initial encounter [S99.921A] Start: 01-05-2025 End: 01-05-2025 Office outpatient visit 25 minutes Shanita Green PA-C Work Phone: [facility] [place] Comment on above: Injury of right toe, initial encounter (Primary Dx); Psychophysiological insomnia; Ectatic thoracic aorta Start: 01-05-2025 End: 01-05-2025 ambulatory RITO CAMP Facility:[facility] Start: 01-04-2025 End: 01-04-2025 Chart abstracting Rito Camp MD Work Phone: [facility] [place] Comment on above: Outside Imaging (CT) Start: 01-01-2025 End: 01-01-[address] Rito Camp MD Work Phone: [facility] Work Phone: Start: 01-01-2025 End: 01-01-2025 Patient encounter procedure Sierra AVILES -Cat Scan, [facility] Work Phone: Start: 01-01-2025 End: 01-01-2025 ambulatory Rito Camp Facility:[facility] Start: 12-28-2024 End: 12-29-2024 Follow-up encounter Rito Camp MD Work Phone: [facility] Start: 12-28-2024 ambulatory RITO CAMP Facili ty:[facility] Start: 12-28-2024 End: 12-28-2024 Subsequent hospital visit by physician Bone Density [facility] Work Phone: Radiology Comment on above: Osteoporosis, unspec ified osteoporosis type, unspecified pathological fracture presence [M81.0] Start: 12-17-2024 End: 12-17-2024 Patient encounter procedure Angella Cueto YELLOW PAGES SPACE SALESPERSONErnieC -[facility] Work Phone: Start: 12-17-2024 End: 12-17-2024 ambulatory Rito Camp Facility:[facility] Start: 12-02-2024 End: 12-04-2024 Telephone encounter Aury Newton MA [facility] Comment on above: Results Start: 12-01-2024 End: 12-18-2024 Telephone encounter Alex Brown APRN.CNP [facility] Comment on above: Patient Question Start: 11-30-2024 End: 11-30-2024 Refill Rito Camp MD [facility]: [facility] Comment on above: Refill Request Start: 11-25-2024 End: 11-25-[address] Rito Camp MD Work Phone: [facility] Work Phone: Start: 11-25-2024 End: 11-25-[address] Rito Camp MD -Speech Therapy Work Phone: Start: 11-25-[address] Leonard Camp MD -Speech Therapy Work Phone: Start: 11-24-2024 End: 11-24-[address] Rito Camp MD Work Phone: [facility] Work Phone: Start: 11-24-2024 End: 11-24-[address] Rito Camp MD -Radiology, [facility] Work Phone: Start: 11-24-2024 End: 11-24-2024 ambulatory Rito Camp Facility:[facility] Start: 11-10-2024 End: 11-10-2024 Chart abstracting Rito Camp MD Work Phone: Family [facility] Comment on above: Outside Anesthesia/P ain Start: 11-09-2024 End: 11-09-2024 Refill Rito Camp MD Work Phone: OB/Gynecology Comment on above: Refill Request Start: 11-05-2024 End: 11-05-2024 ambulatory No Pcp (Hist) [facility] [place] Start: 11-05-2024 End: 11-05-2024 Patient encounter procedure No Pcp (Hist) [facility] [place] Start: 11-04-2024 End: 11-04-2024 Telephone encounter Rito Camp MD Work Phone: [facility] [place] Comment on above: Left Hip Pain Start: 11-02-2024 End: 11-02-2024 Refill Rito Camp MD Work Phone: Family [facility] [place] Comment on above: Refill Request Start: 10-26-2024 End: 11-12-2024 Telephone encounter Rito Camp MD Work Phone: Administration Comment on above: Orders (Disc Request ) Start: 10-20-2024 End: 10-20-2024 Chart abstracting Rito Camp MD Work Phone: [facility] [place] Comment on above: Outside Speech Thera py Start: 10-13-2024 End: 10-13-2024 ambulatory Mary Ann Oscar PT [facility] Comment on above: Pain in left hip (Pr imary Dx) Start: 10-01-2024 End: 10-01-2024 Patient encounter procedure Rito Camp MD Work Phone: [facility] [place] Comment on above: Medicare annual well [...] Start: 10-01-2024 End: 10-01-2024 ambulatory RITO CAMP Facility:[facility] Start: 09-30-2024 End: 09-30-2024 Refill Rito Camp MD Work Phone: [facility] Comment on above: Refill Request Start: 09-29-2024 End: 09-29-2024 ambulatory Mary Ann Oscar PT [facility] Comment on above: Pain in left hip (Pr imary Dx) Start: 09-24-2024 End: 09-24-2024 ambulatory RITO CAMP Facility:[facility] Start: 09-15-2024 End: 09-15-2024 Telephone encounter Rito Camp MD Work Phone: [facility] [place] Comment on above: fax copy of CT Chest to Pulmonary Dr Suleman Gustafson office Start: 09-15-2024 End: 09-15-2024 Patient encounter procedure YELLOW P[employer] SPACE SALESPERSON Letha Emery [facility] Work Phone: Start: 09-15-2024 End: 09-15-2024 ambulatory Rito Camp [place] Start: 09-08-2024 End: 09-08-2024 Telephone encounter Rito Camp MD Work Phone: [facility] Comment on above: Lab Orders Start: 08-13-2024 End: 08-13-2024 ambulatory Christine Parker RN Vehicle Inspector Management Comment on above: CDM (Telephonic Outr each) Start: 08-12-2024 End: 08-12-2024 ambulatory Christine Parker RN Vehicle Inspector Management Comment on above: CDM (Telephonic Outr each) Start: 08-05-2024 End: 08-07-2024 Telephone encounter Shanita Green PA-C Work Phone: [facility] Comment on above: Results Start: 08-03-2024 End: 08-03-2024 Subsequent hospital visit by physician [facility] [place] Work Phone: Radiology Comment on above: Left hip pain [M25.5 52] Start: 08-03-2024 End: 08-03-2024 Patient encounter procedure Alex Brown APRN.COMPOUNDING AND FINISHING SUPERVISOR Work Phone: [facility] Comment on above: Left hip pain (Prima ry Dx) Start: 08-03-2024 End: 08-03-2024 ambulatory RITO CAMP Facility:[facility] Start: 07-31-2024 End: 07-31-2024 Subsequent hospital visit by physician [facility] [place] Work Phone: Radiology Comment on above: Acute cough [R05.1] Start: 07-31-2024 End: 07-31-2024 ambulatory RITO NAINA Facility:[facility] Start: 07-31-2024 End: 07-31-2024 Patient encounter procedure Shanna Newton APRN.COMPOUNDING AND FINISHING SUPERVISOR Work Phone: [facility] Comment on above: Acute cough (Primary Dx); Bacterial pneumonia Start: 07-27-2024 [facility] Start: 07-27-2024 End: 07-27-2024 ambulatory Letha Emery Facility:[facility] Start: 07-22-2024 End: 07-22-2024 Chart abstracting Rito Camp MD Work Phone: [facility] Comment on above: Outside Pulmonary Start: 07-21-2024 End: 07-21-2024 ambulatory Rito Camp [place] Start: 07-16-2024 End: 07-16-2024 ambulatory Christine Parker [employer] professorVehicle Inspector Management Comment on above: CDM (Telephonic Outr each) Start: 07-02-2024 End: 07-02-2024 Telephone encounter Alex Brown APRN.COMPOUNDING AND FINISHING SUPERVISOR Work Phone: [facility] Comment on above: Results Start: 07-01-2024 End: 07-01-2024 Subsequent hospital visit by physician Screen Mammo [facility] Comment on above: Encounter for screen ing mammogram for breast cancer [Z12.31] Start: 06-18-2024 End: 06-18-2024 ambulatory Christine Parker RN Vehicle Inspector Management Comment on above: CDM (Telephonic Outr each) Start: 06-17-2024 End: 06-17-2024 ambulatory Christine Parker RN Vehicle Inspector Management Comment on above: CDM (Telephonic Outr each) Start: 06-10-2024 End: 06-10-2024 Telephone encounter Rito Camp MD Work Phone: [facility] Comment on above: Medication Problem Start: 06-07-2024 End: 06-07-2024 Patient encounter procedure Shanna Newton APRN.COMPOUNDING AND FINISHING SUPERVISOR Work Phone: [facility] Comment on above: Respiratory infectio n (Primary Dx) Start: 06-05-2024 End: 06-05-2024 Telephone encounter Rito Camp MD Work Phone: [facility] Comment on above: Results Start: 06-05-2024 End: 06-05-2024 Patient encounter procedure Rito Camp MD Work Phone: [facility] Comment on above: Acute cystitis witho ut hematuria (Primary Dx) Start: 06-03-2024 End: 06-03-2024 Patient encounter procedure Mary Annrose Dukes APRN.COMPOUNDING AND FINISHING SUPERVISOR Work Phone: [facility] Comment on above: Dysuria (Primary Dx) Start: 05-07-2024 End: 05-07-2024 ambulatory Christine Parker RN Vehicle Inspector Management Comment on above: CDM (Telephonic Outr each) Start: 05-06-2024 End: 05-06-2024 ambulatory Christine Parker RN Vehicle Inspector Management Comment on above: CDM (Telephonic Outr each) Start: 04-27-2024 End: 04-27-2024 Refill iRto Camp MD Work Phone: [facility] Comment on above: Refill Request Start: 04-24-2024 End: 04-24-2024 Telephone encounter Alex Brown APRN.COMPOUNDING AND FINISHING SUPERVISOR Work Phone: [facility] Comment on above: Results Start: 04-24-2024 End: 04-24-2024 Subsequent hospital visit by physician Mri Radio [facility] (I-Stat/1.5t) Work Phone: Radiology Comment on above: Acute pain of left s le [M25.512] Start: 04-20-2024 End: 04-20-2024 Telephone encounter Rito Camp MD Work Phone: [facility] Comment on above: Patient Update Start: 04-14-2024 End: 04-29-2024 Telephone encounter Alex Brown APRN.COMPOUNDING AND FINISHING SUPERVISOR Work Phone: [facility] Comment on above: Results Start: 04-14-2024 End: 04-14-2024 Subsequent hospital visit by physician Xr [facility] [place] Work Phone: Radiology Comment on above: Fall (on) (from) ot er stairs and steps, initial encounter [W10.8XXA] Start: 04-14-2024 End: 04-14-2024 Patient encounter procedure Alex Brown APRN.COMPOUNDING AND FINISHING SUPERVISOR Work Phone: [facility] Comment on above: Fall (on) (from) [...] End: 03-26-2024 Patient encounter procedure Alex Brown COLD STRIP FEEDER.COMPOUNDING AND FINISHING SUPERVISOR Work Phone: [facility] Comment on above: Fall, initial encoun ter (Primary Dx); Acute pain of left shoulder Start: 03-18-2024 End: 03-18-2024 Subsequent hospital visit by physician [facility] [place] Work Phone: Radiology Comment on above: Pain of left clavicl e [M89.8X1] Start: 03-18-2024 End: 03-18-2024 Patient encounter procedure Sweetie Romeo APRN.COMPOUNDING AND FINISHING SUPERVISOR Work Phone: [facility] Comment on above: Fall, initial encoun ter (Primary Dx); Pain of left clavicle; Acute pain of left shoulder Start: 03-16-2024 Refill Rito madera MD Work Phone: [facility] Comment on above: Refill Request Start: [...] abstracting Rito sampson MD Work Phone: [facility] Comment on above: ext document (CT rep ort) Start: 01-01-2024 End: 01-01-[address] Rito Camp Work Phone: [facility] Work Phone: Start: 01-01-2024 End: 01-01-[address] Rito Camp Work Phone: [facility] Medicine Work Phone: Start: 12-31-2023 Telephone encounter Rito Camp MD Work Phone: [facility] Comment on above: Results Start: 12-23-2023 ambulatory Mary Ann Dukes APRN.COMPOUNDING AND FINISHING SUPERVISOR Work Phone: [facility] Comment on above: Results Start: 12-23-2023 E-mail encounter fro m caregiver Mary Ann Dukes APRN.COMPOUNDING AND FINISHING SUPERVISOR Work Phone: [facility] Start: 12-23-2023 End: 12-23-2023 Subsequent hospital visit by physician Xr [facility] Work Phone: Radiology Comment on above: URI, acute [J06.9] Start: 12-23-2023 End: 12-23-2023 Patient encounter procedure Mary Ann Dukes APRN.COMPOUNDING AND FINISHING SUPERVISOR Work Phone: [facility] Comment on above: URI, acute (Primary Dx); COPD with exacerbation (HCC) Start: 12-22-2023 End: 12-22-2023 Patient encounter procedure Teresa Handley PA-C Work Phone: [facility] Comment on above: COPD with [...] encounter Rito Camp MD Work Phone: [facility] Comment on above: Patient Update; FYI- No Action Needed Start: 10-22-2023 ambulatory Christine Null latory Care Management Comment on above: CDM (Telephonic Outr each) Start: 10-21-2023 ambulatory Christine Null latory Care Management Comment on above: CDM (Telephonic Outr each) Start: 10-16-2023 Telephone encounter Shanita ALCANTARAC Work Phone: [facility] Comment on above: Results Start: 10-15-2023 Telephone encounter Elana Nevin riddle P[facility] Radiology Comment on above: Results (Disc/Report ) Start: 10-15-2023 End: 10-15-2023 Subsequent hospital visit by physician [facility] Work Phone: Radiology Comment on above: Neck pain [M54.2] Start: 10-15-2023 End: 10-15-2023 Patient encounter procedure Shanita Green PA-C Work Phone: [facility] Comment on above: Neck pain (Primary D x); Acute pain of right shoulder Start: 10-07-2023 Refill Rito madera MD Work Phone: [facility] Comment on above: Refill Request ([facility]) Start: 10-01-2023 Patient encounter procedure Jurgen Camp MD Work Phone: [facility] Work Phone: Start: 08-22-2023 ambulatory Christine Null latory Care Management Comment on above: CDM (Telephonic Outr each) Start: 08-15-2023 End: 08-15-2023 Subsequent hospital visit by physician [facility] Work Phone: Radiology Comment on above: Lumbar radiculopathy [M54.16] Start: 08-05-2023 End: 08-05-2023 ambulatory Jeancarlos Brewer [facility] Physical Therapy Comment on above: 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, sciatica laterality unspecified (Primary Dx) Start: 07-29-2023 End: 07-29-2023 ambulatory Jeancarlos Fraser PT [facility] Physical [facility] Comment on above: 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, sciatica laterality unspecified (Primary Dx) Start: 07-22-2023 ambulatory Kerrie Chapincalv es RN Work Phone: [employer] Comment on above: CDM Telephonic Outre ach Start: 07-15-2023 End: 07-15-2023 ambulatory Jeancarlos Fraser PT [facility] Comment on above: 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, sciatica laterality unspecified (Primary Dx) Start: 06-27-2023 Refill Rito madera MD Work Phone: [facility] Comment on above: Refill Request Start: 06-21-2023 ambulatory Kerrie Sriniv es RN Work Phone: [employer] Comment on above: CDM Telephonic Outre ach Start: 06-20-2023 Telephone encounter Rito Camp MD Work Phone: [facility] Comment on above: Results Start: 06-11-2023 Telephone encounter Shanita samuel PA-C Work Phone: [facility] Comment on above: Results Start: 06-11-2023 End: 06-11-2023 Patient encounter procedure Toi Falcon MD Work Phone: General Surgery Comment on above: S/p small bowel obst ruction Start: 06-08-2023 End: 06-08-2023 Patient encounter procedure Rito Camp MD Work Phone: [facility] Comment on above: Bronchitis (Primary Dx); Asthma with COPD with exacerbation (HCC) ; Suspected COVID-19 virus infection Start: 06-05-2023 Telephone encounter Rito Camp MD Work Phone: [facility] Comment on above: Results Start: 06-04-2023 End: 06-04-2023 Patient encounter procedure Alex Brown APRN.CNP Work Phone: [facility] Comment on above: S/p small bowel obst ruction (Primary Dx) Start: 06-03-2023 Telephone encounter Rito Camp MD Work Phone: [facility] Comment on above: Patient Update; [facility] Start: 06-02-2023 Non-patient / Non-visit Dr. Jurgen Camp Work Phone: [facility] Inpatient Physicians Work Phone: Start: 06-01-2023 Non-patient / Non-visit Dr. Jurgen Camp Work Phone: [facility] Start: 06-01-2023 Non-patient / Non-visit Dr. Jurgen Camp Work Phone: [facility] Inpatient Physicians Work Phone: Start: 06-01-2023 End: 06-02-2023 Evaluation and management of inpatient Dr. Rito Camp Work Phone: [facility]-Medical Surgical 3 Work Phone: Start: 05-14-2023 Telephone encounter Rito Camp MD Work Phone: [facility] Comment on above: Lab Orders Start: 04-17-2023 End: 04-17-[address] Rito Camp Work Phone: [facility]-Pulmonary Medicine [facility] Work Phone: Start: 04-16-2023 Refill Rito madera MD Work Phone: [facility] Comment on above: Refill Request Start: 04-10-2023 Telephone encounter Kenn Campbell DO Work Phone: Cat Scan Comment on above: disk request Start: 03-07-2023 Telephone encounter Rito Camp MD Work Phone: [facility] Comment on above: Medication Request Start: 03-01-2023 Telephone encounter Rito Camp MD Work Phone: [facility] Comment on above: Results Start: 02-28-2023 ambulatory Kerrie Gonsukumar trujillo RN Work Phone: [employer] Comment on above: CDM Telephonic Outre ach Erroneous encounter- disregard Start: 02-27-2023 Telephone encounter Shanita samuel PA-C Work Phone: [facility] Comment on above: Results Start: 02-26-2023 Chart abstracting Rito sampson MD Work Phone: [facility] Comment on above: Outside Endocrinolog y Start: 02-26-2023 Telephone encounter Alex hawkins APRN.COMPOUNDING AND FINISHING SUPERVISOR Work Phone: [facility] Comment on above: Results Start: 02-26-2023 End: 02-26-2023 Subsequent hospital visit by physician [facility] ([facility]) Work Phone: Cat Scan Comment on above: New onset of headach es after age 50 [R51.9] Start: 02-25-2023 End: 02-25-[address] Rito Camp Work Phone: [facility] Endocrinology Work Phone: Start: 02-21-2023 Telephone encounter Shanita ALCANTARAC Work Phone: [facility] Comment on above: Results Start: 02-20-2023 End: 02-20-2023 Patient encounter procedure Shanita Green PA-C Work Phone: [facility] Comment on above: Psychophysiological insomnia (Primary Dx); New onset of headaches after age 50; Essential hypertension, benign; Ex-smoker Start: 02-15-2023 End: 02-15-2023 Patient encounter procedure Alex Brown APRN.COMPOUNDING AND FINISHING SUPERVISOR Work Phone: [facility] Comment on above: Psychophysiological insomnia (Primary Dx); Runny nose; New onset of headaches after age 51; Ectatic thoracic aorta (HCC) Start: 02-12-2023 End: 02-13-2023 Emergency department patient visit Dr. Rito Camp Work Phone: [facility]-Emergency Department Work Phone: Start: 01-21-2023 End: 01-21-2023 Subsequent hospital visit by physician Ct Prep [facility] Cat Scan Start: 01-03-2023 ambulatory Ruth Denton RN Ambulato ry Care Management Comment on above: CDM (Telephonic outr each) Start: 12-31-2022 Telephone encounter Rito Camp MD Work Phone: [facility] Comment on above: Referral Information Start: 12-18-2022 End: 12-18-2022 Subsequent hospital visit by physician Xr [facility] Work Phone: Radiology Comment on above: Pain [R52] Start: 12-07-2022 ambulatory Ruth Denton RN Ambulato ry Care Management Comment on above: CDM (Telephonic outr each) Start: 12-05-2022 Refill Rito madera MD Work Phone: [facility] Comment on above: Refill Request Start: 12-04-2022 Telephone encounter Rito Camp MD Work Phone: [facility] Comment on above: Results Start: 12-03-2022 End: 12-03-2022 [facility] Work Phone: Radiology Comment on above: Weight loss [R63.4] Start: 11-20-2022 Telephone encounter Shanita samuel PA-C Work Phone: [facility] Comment on above: Results Start: 11-19-2022 End: 11-19-2022 Patient encounter procedure Rito Camp MD Work Phone: [facility] Comment on above: Weight loss (Primary Dx); Ex-smoker; Multiple thyroid nodules; Lung nodules; Osteoporosis, unspecified osteoporosis type, unspecified pathological fracture presence Start: 11-16-2022 Telephone encounter Rito Camp MD Work Phone: [facility] Comment on above: Results Start: 11-13-2022 End: 11-13-2022 Subsequent hospital visit by physician Bone Density [facility] Work Phone: Radiology Comment on above: Osteoporosis, unspec ified osteoporosis type, unspecified pathological fracture presence [M81.0] Start: 11-12-2022 ambulatory Ruth Denton RN Ambulato ry Care Management Comment on above: CDM (Telephonic outr each) Start: 11-05-2022 Telephone encounter Rito Camp MD Work Phone: [facility] [place] Comment on above: Results Start: 09-27-2022 End: [...] 09-17-2022 ambulatory Kami Hunter RN Work Phone: [employer] Comment on above: Community Monitoring Outreach [...] 08-14-2022 ambulatory Kami Hunter RN Work Phone: [facility] Start: 08-14-2022 Follow-up encounter Kami Hunter RN Work Phone: [employer] Comment on above: Community Monitoring Outreach (CDM Follow Up) Start: 08-01-2022 Documentation procedure Mammog deidre Coordinator [facility] Start: 08-01-2022 Letter encounter Mammography Coordinator [facility] Department Start: 07-31-2022 End: 07-31-2022 Patient encounter procedure Ashleigh Negrete APRN.COMPOUNDING AND FINISHING SUPERVISOR Work Phone: OB/Gynecology Comment on above: Encounter for gyneco logical examination (general) (routine) without abnormal findings (Primary Dx); Encounter for screening mammogram for breast cancer Start: 07-31-2022 End: 07-31-2022 Patient encounter status Ashleigh Negrete APRN.COMPOUNDING AND FINISHING SUPERVISOR Work Phone: OB/Gynecology Start: 07-31-2022 End: 07-31-2022 Subsequent hospital visit by physician Screen Mammo [facility] Mammogram Comment on above: Encounter for screen ing mammogram for malignant neoplasm of breast [Z12.31] Start: 07-23-2022 ambulatory Kami Hunter RN Work Phone: [employer] [employer] [employer] [employer] Start: 07-23-2022 Follow-up encounter Kami Hunter RN Work Phone: [employer] Comment on above: Community Monitoring Outreach (CDM Follow Up) Start: 07-09-2022 Telephone encounter Rito Camp MD Work Phone: [facility] [place] Comment on above: chest heaviness; Cov id Positive Results Start: 07-09-2022 End: 07-09-2022 Subsequent hospital visit by physician Xr [facility] Work Phone: Radiology Comment on above: Feeling of chest tig htness [R07.89] Start: 07-09-2022 End: 07-09-2022 Patient encounter procedure Sweetie Romeo APRN.COMPOUNDING AND FINISHING SUPERVISOR Work Phone: [facility] [place] Comment on above: Feeling of chest tig htness (Primary Dx); Chest heaviness; Lab test positive for detection of COVID-19 virus; SOB (shortness of breath) Start: 07-05-2022 Telephone encounter Shanna Newton APRN.COMPOUNDING AND FINISHING SUPERVISOR Work Phone: [facility] Comment on above: Results Start: 07-04-2022 End: 07-04-2022 Patient encounter procedure Rito Sheridan APRN.COMPOUNDING AND FINISHING SUPERVISOR Work Phone: [facility] Comment on above: Suspected COVID-19 v irus infection (Primary Dx) Start: 07-02-2022 ambulatory Kami Hunter RN Work Phone: [employer] Comment on above: Refer / Community Re sources (CD Telephonic) Start: 06-12-2022 ambulatory Kami Hunter RN Work Phone: [employer] Comment on above: Community Monitoring Outreach (CD Telephonic) Start: 05-28-2022 End: 05-28-2022 Patient encounter procedure Shanita Green PA-C Work Phone: [facility] Comment on above: Psychophysiological insomnia (Primary Dx); Overactive bladder Start: 05-16-2022 End: 05-16-[address] Rito Camp Work Phone: [facility] Work Phone: Start: 05-16-2022 End: 05-16-[address] Rito Camp Work Phone: [facility] Start: 05-08-2022 ambulatory Kami Hunter RN Work Phone: [facility] Start: 05-08-2022 Follow-up encounter Kami Hunter RN Work Phone: [employer] Comment on above: Community Monitoring Outreach (CD Follow Up) Start: 05-08-2022 Telephone encounter Shanita samuel PA-C Work Phone: [facility] Comment on above: Patient Update Start: 04-30-2022 Refill Rito madera MD Work Phone: [facility] Comment on above: Refill Request Start: 04-24-2022 ambulatory Kami Hunter RN Work Phone: [facility] [place] Start: 04-24-2022 Follow-up encounter Kami Hunter RN Work Phone: [employer] Comment on above: Community Monitoring Outreach (CDM Telephonic Follow Up) Start: 04-23-2022 ambulatory Kami Hunter RN Work Phone: [facility] [place] Start: 04-23-2022 Follow-up encounter Kami Hunter RN Work Phone: [employer] Comment on above: Community Monitoring Outreach (CDM Telephonic Follow Up) Start: 04-16-2022 End: 04-16-[address] Rito Camp [facility] Start: 04-11-2022 ambulatory Toi Power RN NURSE PLATFORM SOFTWARE ENGINEER Comment on above: Medication Question Start: 04-10-2022 ambulatory Kami Hunter RN Work Phone: [facility] [place] Start: 04-10-2022 Follow-up encounter Kami Hunter RN Work Phone: [employer] Comment on above: Community Monitoring Outreach (Follow Up) Start: 04-03-2022 ambulatory Kami Hunter RN Work Phone: [facility] [place] Start: 04-03-2022 Follow-up encounter Kami Hunter RN Work Phone: [employer] Comment on above: Community Monitoring Outreach (Telephonic Follow Up) Start: 03-30-2022 Telephone encounter Shanita samuel PA-C Work Phone: [facility] Comment on above: Results Start: 03-29-2022 End: 03-29-2022 Subsequent hospital visit by physician [facility] Work Phone: Radiology Comment on above: Enlarged uterus [N85 .2] Start: 03-26-2022 Telephone encounter Shanita samuel PA-C Work Phone: [facility] Comment on above: Results Start: 03-23-2022 End: 03-23-2022 Subsequent hospital visit by physician [facility] Work Phone: Radiology Comment on above: Partial intestinal o bstruction, unspecified cause (HCC) [K56.600] Start: 03-23-2022 End: 03-23-2022 Patient encounter procedure Shanita Green PA-C Work Phone: [facility] Comment on above: Partial intestinal o bstruction, unspecified cause (HCC) (Primary Dx); Enlarged uterus; Lower abdominal pain; Bruising Start: 03-21-2022 ambulatory Kami Hunter RN Work Phone: [employer] Start: 03-21-2022 Follow-up encounter Kami Hunter RN Work Phone: [facility] [employer] [facility] Comment on above: Community Monitoring Outreach (Telephonic Follow Up) Start: 03-20-2022 ambulatory Kami Hunter RN Work Phone: [employer] Start: 03-20-2022 Follow-up encounter Kami Hunter RN Work Phone: [employer] Comment on above: Community Monitoring Outreach (Telephonic Follow Up) Start: 03-18-2022 Non-patient / Non-visit Dr. Jurgen Camp Work Phone: [facility] Inpatient Physicians Start: 03-18-2022 Non-patient / Non-visit Dr. Jurgen Camp Work Phone: [facility] Start: 03-17-2022 End: 03-18-2022 Evaluation and management of inpatient Dr. Rito Camp Work Phone: [facility] Surgical 3 Start: 03-14-2022 End: 03-14-2022 Subsequent hospital visit by physician [facility] Work Phone: Radiology Comment on above: Coccyx pain [M53.3] Start: 03-14-2022 End: 03-14-2022 Patient encounter procedure Bernard Elliott MD [facility] Phone[facility] Comment on above: Coccyx pain (Primary Dx) Start: 03-06-2022 ambulatory Kami Hunter RN Work Phone: [facility] [place] Start: 03-06-2022 Follow-up encounter Kami Hunter RN Work Phone: [employer] Comment on above: Community Monitoring Outreach (Telephonic Follow Up) Start: 03-02-2022 ambulatory Kami Hunter RN Work Phone: [facility] [place] Start: 03-02-2022 Follow-up encounter Kami Hunter RN Work Phone: [employer] Comment on above: Community Monitoring Outreach (Telephonic Follow Up) Start: 02-15-2022 ambulatory Kami Hunter RN Work Phone: [facility] [place] Start: 02-15-2022 Follow-up encounter Kami Hunter RN Work Phone: [employer] Comment on above: Community Monitoring Outreach (Telephonic Follow Up) Start: 02-01-2022 ambulatory Kami Hunter RN Work Phone: [facility] [place] Start: 02-01-2022 Follow-up encounter Kami Hunter RN Work Phone: [employer] Comment on above: Community Monitoring Outreach (Telephonic Follow Up) Start: 01-15-2022 ambulatory Kami Hunter RN Work Phone: [facility] [place] Start: 01-15-2022 Follow-up encounter Kami Hunter RN Work Phone: [employer] Comment on above: Community Monitoring Outreach (Telephonic Follow Up) Start: 01-10-2022 Telephone encounter Rito Camp MD Work Phone: [facility] Comment on above: Patient Update Start: 01-10-2022 End: 01-10-2022 Patient encounter procedure Shanna Newton APRN.COMPOUNDING AND FINISHING SUPERVISOR Work Phone: [facility] Comment on above: Cough (Primary Dx) Start: 01-02-2022 ambulatory Kami Hunter RN Work Phone: [employer] [employer] [place] Start: 01-02-2022 Follow-up encounter Kami Hunter RN Work Phone: [employer] Comment on above: Community Monitoring Outreach (Telephonic Follow Up) Start: 12-25-2021 Telephone encounter Shanita CORREA-C Work Phone: [facility] Comment on above: Results Start: 12-22-2021 Telephone encounter Rito Camp MD Work Phone: [facility] Comment on above: Returning Patient's Call Start: 12-20-2021 Telephone encounter Shanita samuel PA-C Work Phone: [facility] Comment on above: Results Start: 12-19-2021 End: 12-19-2021 Patient encounter procedure Shanita CORREA-C Work Phone: [facility] Comment on above: Brittle nails (Prima ry Dx) Start: 12-18-2021 ambulatory [facility] Start: 12-18-2021 Follow-up encounter Kami Hunter RN [employer] Comment on above: Community Monitoring Outreach (Telephonic Follow Up) Start: 12-11-2021 Non-patient / Non-visit Dr. Jurgen Camp Work Phone: [facility] Start: 12-11-2021 End: 12-11-[address] Rito Camp Work Phone: [facility]-Pulmonary Services/Neurology Start: 12-04-2021 ambulatory Kami [facility] Start: 12-04-2021 Follow-up encounter Kami Hunter RN [employer] Comment on above: Community Monitoring Outreach (Telephonic Follow Up) Start: 01-27-2021 Patient encounter procedure Ka gracie Hunter RN [facility] Work Phone: Start: 12-27-2020 End: 12-27-2020 Subsequent hospital visit by physician Xr [facility] [employer] Work Phone: Radiology Comment on above: Suspected COVID-19 v irus infection [Z20.822] Start: 12-17-2020 End: 12-17-2020 Subsequent hospital visit by physician Xr [facility] [employer] Work Phone: Radiology Comment on above: Hip pain, acute, lef t [M25.552] Start: 07-23-2020 End: 07-23-2020 Subsequent hospital visit by physician Xr [facility] [employer] Work Phone: Radiology Comment on above: Pneumonia due to COV ID-19 virus [U07.1, J12.89] Procedures Date Procedure Procedure Detail Performing Clinician Start: 05-16-2025 Radex wrist complete minimum 3 views Ky Chuyita COLD STRIP FEEDER.COMPOUNDING AND FINISHING SUPERVISOR Work Phone: Start: 03-31-[address] Jake [...] exam ches t 2 views Shanna Newton COLD STRIP FEEDER.COMPOUNDING AND FINISHING SUPERVISOR Work Phone: Start: 06-05-2024 Urnls dip stick/tabl et rgnt auto w/o microscopy Rito Camp MD Work Phone: Start: 06-03-2024 Urnls dip stick/tabl et rgnt auto w/o microscopy Rito Sheridan COLD STRIP FEEDER.COMPOUNDING AND FINISHING SUPERVISOR Work Phone: Start: 04-24-2024 Mri any jt upper ext remity w/o contrast matrl Alex Brown COLD STRIP FEEDER.COMPOUNDING AND FINISHING SUPERVISOR Work Phone: Start: 04-14-2024 Radiologic exam ches t 2 views Alex Brown COLD STRIP FEEDER.COMPOUNDING AND FINISHING SUPERVISOR Work Phone: Start: 03-18-2024 Radex clavicle complete Sweetie Podlogar COLD STRIP FEEDER.COMPOUNDING AND FINISHING SUPERVISOR Work Phone: Start: 01-01-[address] Jake Camp Work Phone: Start: 12-23-2023 Radiologic exam ches t 2 views Mary Ann Dukes COLD STRIP FEEDER.COMPOUNDING AND FINISHING SUPERVISOR Work Phone: Start: 12-23-2023 COVID & INFLUENZA A/ B & RSV NAAT, ROUTINE Mary Ann Dukes COLD STRIP FEEDER.COMPOUNDING AND FINISHING SUPERVISOR Work Phone: Start: 10-15-2023 Radex spine cervical 4 or 5 views Shanita Green PA-C Work Phone: Start: 09-23-2023 Lipid 1996 panel - S mary jo or Plasma Rito Camp MD Work Phone: Start: 08-15-2023 Radex hips bilateral with pelvis minimum 5 views Alex Brown COLD STRIP FEEDER.COMPOUNDING AND FINISHING SUPERVISOR Work Phone: Start: 06-01-[address] Rito Camp Work Phone: Start: 06-01-2023 Plain X-ray abdomen Dr. Rito Camp Work Phone: Start: 06-01-2023 Plain X-ray abdomen Dr. Rito Camp Work Phone: Start: 05-31-2023 CT of abdomen and pe lvis without contrast Dr. Rito Camp Work Phone: Start: 02-26-2023 Ct angiography head w/contrast/noncontrast Alex Brown COLD STRIP FEEDER.COMPOUNDING AND FINISHING SUPERVISOR Work Phone: Start: 12-18-2022 Radex wrist complete minimum 3 views Shanna Newton COLD STRIP FEEDER.COMPOUNDING AND FINISHING SUPERVISOR Work Phone: Start: 12-03-2022 Us abdominal real [...] Start: 07-31-2022 End: 07-31-2022 Mammography Ashleigh Negrete COLD STRIP FEEDER.COMPOUNDING AND FINISHING SUPERVISOR Work Phone: Start: 07-09-2022 Ecg routine ecg w/le ast 12 lds i&r only [facility] Provider Start: 07-09-2022 Radiologic exam ches t 2 views Sweetie Romeo COLD STRIP FEEDER.COMPOUNDING AND FINISHING SUPERVISOR Work Phone: Start: 05-16-2022 CT of chest [...] exam ches t 2 views Will Kidd COLD STRIP FEEDER.COMPOUNDING AND FINISHING SUPERVISOR Work Phone: Start: 12-17-2020 Radex hip unilateral with pelvis 2-3 views Cathleen Mckee COLD STRIP FEEDER.COMPOUNDING AND FINISHING SUPERVISOR Work Phone: Start: 07-23-2020 Radiologic exam ches t 2 views Darvin Gold MD Start: 06-27-2016 Colonoscopy Kami riojas RN Plan of Treatment Date Care Activity Detail Author Start: 09-24-2029 Lipid panel Lipid Screening [facility] Start: 12-18-2028 Urine microalbumin profile [facility] Start: 09-23-2028 Lipid panel Lipid Screening [facility] [facility] Start: 09-24-2027 Diabetes Screening Diabetes Screenin g [facility] Start: 09-15-2027 Lipid 1996 panel - S mary jo or Plasma Lipid Screening [facility] Start: 09-15-2027 Lipid panel Lipid Screening [facility] Start: 09-15-2027 LIPID SCREEN LIPID SCREEN [facility] Start: 12-28-2026 Screening for osteoporosis Bone Dens ity Screening [facility] Start: 09-23-2026 Diabetes Screening Diabetes Screenin g [facility] Start: 09-21-2026 LIPID SCREEN LIPID SCREEN [facility] Start: 06-27-2026 Colonoscopy COLONOSCOPY [facility] Start: 06-27-2026 COLORECTAL CANCER SCREENING COLORECTAL CANCER SCREENING [facility] Start: 06-27-2026 Screening for malign ant neoplasm of colon [facility] Start: 05-14-2026 Annual PCP Team Landscaper dontae Disease Visit Annual PCP Team Chronic Disease Visit [facility] Start: 05-04-2026 Annual PCP Team Landscaper dontae Disease Visit Annual PCP Team Chronic Disease Visit [facility] Start: 03-15-2026 Annual PCP Team Landscaper dontae Disease Visit Annual PCP Team Chronic Disease Visit [facility] Start: 02-20-2026 DIABETES SCREEN DIABETES SCREEN [facility] Start: 02-20-2026 Diabetes Screening Diabetes Screenin g [facility] Start: 01-05-2026 Annual PCP Team Landscaper dontae Disease Visit Annual PCP Team Chronic Disease Visit [facility] Start: 10-01-2025 Annual PCP Team Landscaper dontae Disease Visit Annual PCP Team Chronic Disease Visit [facility] Start: 10-01-2025 BP Controlled (<130/80) BP Controlle d (<130/80) [facility] Start: 10-01-2025 Depression Screening Depression Scre ening [facility] Start: 09-20-2025 End: 09-20-2025 Patient encounter procedure 09/20/2025 10:00 AM EST Office Visit [facility] [address] [place] [address] Rito Camp MD [address] [place] [id number] Medicare Wellness [facility] Comment on above: Medicare Wellness Start: 09-15-2025 DIABETES SCREEN DIABETES SCREEN [facility] Start: 09-02-2025 End: 12-02-2025 25-hydroxyvitamin D3 [Mass/volume] in Serum or Plasma VITAMIN D 25 HYDROXY Lab Routine Osteoporosis, unspecified osteoporosis type, unspecified pathological fracture presence Expected: 09/02/2025, Expires: 12/02/2025 [facility] Comment on above: Expected: 09/02/2025 , Expires: 12/02/2025 Start: 09-02-2025 End: 12-02-2025 CBC W Auto Differential panel - Blood COMPLETE BLOOD COUNT AND DIFFERENTIAL Lab Routine GERD without esophagitis Heavy alcohol use Medication management Expected: 09/02/2025, Expires: 12/02/2025 [facility] Comment on above: Expected: 09/02/2025 , Expires: 12/02/2025 Start: 09-02-2025 End: 12-02-2025 Cobalamin (Vitamin B12) [Mass/volume] in Serum or Plasma VITAMIN B12 Lab Routine GERD without esophagitis Medication management Expected: 09/02/2025, Expires: 12/02/2025 [facility] Comment on above: Expected: 09/02/2025 , Expires: 12/02/2025 Start: 09-02-2025 End: 12-02-2025 Comprehensive metabolic 2000 panel - Serum or Plasma COMPREHENSIVE METABOLIC PANEL Lab Routine Essential hypertension, benign Elevated blood sugar Expected: 09/02/2025, Expires: 12/02/2025 [facility] Comment on above: Expected: 09/02/2025 , Expires: 12/02/2025 Start: 09-02-2025 End: 12-02-2025 Folate [Mass/volume] in Serum or Plasma FOLATE, SERUM Lab Routine Heavy alcohol use Medication management Expected: 09/02/2025, Expires: 12/02/2025 [facility] Comment on above: Expected: 09/02/2025 , Expires: 12/02/2025 Start: 09-02-2025 End: 12-02-2025 Hemoglobin A1c in Blood HEMOGLOBIN A1C Lab Routine Elevated blood sugar Expected: 09/02/2025, Expires: 12/02/2025 [facility] Comment on above: Expected: 09/02/2025 , Expires: 12/02/2025 Start: 09-02-2025 End: 12-02-2025 Iron and Iron binding capacity panel - Serum or Plasma IRON AND TIBC Lab Routine Heavy alcohol use Medication management Expected: 09/02/2025, Expires: 12/02/2025 [facility] Comment on above: Expected: 09/02/2025 , Expires: 12/02/2025 Start: 09-02-2025 End: 12-02-2025 LIPID PANEL, NONFASTING LIPID PANEL, NONFASTING Lab Routine Essential hypertension, benign Expected: 09/02/2025, Expires: 12/02/2025 [facility] Comment on above: Expected: 09/02/2025 , Expires: 12/02/2025 Start: 09-02-2025 End: 12-02-2025 Magnesium [Mass/volume] in Serum or Plasma MAGNESIUM Lab Routine GERD without esophagitis Medication management Expected: 09/02/2025, Expires: 12/02/2025 [facility] Comment on above: Expected: 09/02/2025 , Expires: 12/02/2025 Start: 09-02-2025 End: 12-02-2025 Thyrotropin [Units/volume] in Serum or Plasma THYROID STIMULATING HORMONE Lab Routine Chronic anxiety Medication management Expected: 09/02/2025, Expires: 12/02/2025 [facility] Comment on above: Expected: 09/02/2025 , Expires: 12/02/2025 Start: 09-02-2025 End: 12-02-2025 Urinalysis complete panel - Urine URINALYSIS, WITH MICROSCOPIC Lab Routine Essential hypertension, benign Expected: 09/02/2025, Expires: 12/02/2025 [facility] Comment on above: Expected: 09/02/2025 , Expires: 12/02/2025 Start: 08-03-2025 Annual PCP Team Landscaper dontae Disease Visit Annual PCP Team Chronic Disease Visit [facility] Start: 07-01-2025 Screening for malign ant neoplasm of breast Mammogram Screening [facility] Start: 06-08-2025 X-ray of lumbosacral spine L/S Spine Min 4 Views [facility] Start: 06-08-2025 XR Spine Lumbar and Sacrum GE 4 Views [facility] Start: 06-05-2025 Annual PCP Team Landscaper dontae Disease Visit Annual PCP Team Chronic Disease Visit [facility] Start: 05-24-2025 End: 05-24-2025 Patient encounter procedure 05/24/2025 9:00 AM EDT Appointment Radiology [address] [place] [address] MRI LUMBAR SPINE WO IVCON Radiology Comment on above: MRI LUMBAR SPINE WO IVCON Start: 05-03-2025 Influenza vaccination Influenza Vacc ine (#1) [facility] Start: 04-14-2025 Annual PCP Team Landscaper dontae Disease Visit Annual PCP Team Chronic Disease Visit [facility] Start: 03-31-2025 Colonoscopy w/biopsy single/multiple COLONOSCOPY AND BIOPSY [facility] Start: 03-31-2025 Egd insert guide wir e dilator passage esophagus EGD GUIDE WIRE INSERTION [facility] Start: 03-31-2025 Egd transoral biopsy single/multiple EGD BIOPSY SINGLE/MULTIPLE [facility] Start: 03-31-2025 [facility] Annual PCP Team Landscaper dontae Disease Visit Annual PCP Team Chronic Disease Visit [facility] Start: 03-24-2025 End: 03-24-2025 Patient encounter procedure 03/24/2025 9:40 AM EDT Office Visit Family [facility] [address] [place] [address] Shanita Green PA-C [address] [place] [address] go over lab work Family [facility] Comment on above: go over lab work Start: 03-18-2025 Annual PCP Team Landscaper dontae Disease Visit Annual PCP Team Chronic Disease Visit [facility] Start: 03-15-2025 End: 06-14-2025 HYPERCOAG DIAG PNL [facility] Work Phone: Comment on above: Expected: 03/15/2025 , Expires: 06/14/2025 Start: 02-03-2025 End: 02-03-2025 Patient encounter procedure 02/03/2025 9:40 AM EDT Office Visit Family [facility] [address] [place] [address] Shanita Green PA-C [address] [place] [address] routine ov Family [facility] Comment on above: routine ov Start: 01-21-2025 End: 01-21-2025 Patient encounter procedure 01/21/2025 10:30 AM EDT Office Visit Cardiology [address] [place] [address] Ectatic thoracic aorta [I77.810] Cardiology Comment on above: Ectatic thoracic aor ta [I77.810] Start: 12-28-2024 End: 12-28-2024 Patient encounter procedure 12/28/2024 8:55 AM EDT Appointment Radiology [address] [place] [id number] Osteoporosis, unspecified osteoporosis type, unspecified pathological fracture presence [M81.0] Radiology Comment on above: Osteoporosis, unspec ified osteoporosis type, unspecified pathological fracture presence [M81.0] Start: 12-08-2024 End: 12-08-2024 Patient encounter procedure [facility] Comment on above: Insomnia/Hip pain. 2 month follow up Start: 11-19-2024 End: 11-19-2024 Patient encounter procedure 11/19/2024 11:15 AM EDT Appointment Radiology [address] [place] [id number] M81.0 (ICD-10-CM) - Osteoporosis, unspecified osteoporosis type, unspecified pathological fracture presence Radiology Comment on above: M81.0 (ICD-10-CM) - Osteoporosis, unspecified osteoporosis type, unspecified pathological fracture presence Start: 11-13-2024 Screening for osteoporosis Bone Dens ity Screening [facility] Start: 10-29-2024 End: 10-29-2024 Patient encounter procedure 10/29/2024 11:15 AM EST Appointment Radiology [address] [place] [id number] M81.0 (ICD-10-CM) - Osteoporosis, unspecified osteoporosis type, unspecified pathological fracture presence Radiology Comment on above: M81.0 (ICD-10-CM) - Osteoporosis, unspecified osteoporosis type, unspecified pathological fracture presence Start: 10-27-2024 End: 10-27-2024 ambulatory 10/27/2024 10:30 AM EST OT/PT/Speech Visit [facility] [address] [place] [address] O'HumbertoJurgenMary Ann, PT Pain in left hip [M25.552] [facility] Comment on above: Pain in left hip [M2 5.552] Start: 10-21-2024 End: 10-21-2024 ambulatory 10/21/2024 9:45 AM EST OT/PT/Speech Visit [facility] [address] [place] [address] O'HumbertoJurgenMary Ann, PT Pain in left hip [M25.552] [facility] Comment on above: Pain in left hip [M2 5.552] Start: 10-15-2024 Annual PCP Team Landscaper dontae Disease Visit Annual PCP Team Chronic Disease Visit [facility] Start: 10-13-2024 End: 10-13-2024 ambulatory 10/13/2024 10:30 AM EST OT/PT/Speech Visit [facility] [address] [place] [address] O'HumbertoMary Ann ernandez, PT Pain in left hip [M25.552] [facility] Comment on above: Pain in left hip [M2 5.552] Start: 10-09-2024 End: 10-09-2024 ambulatory 10/09/2024 10:00 AM EST OT/PT/Speech Visit [facility] [address] [place] [address] O'HumbertoMary Ann ernandez, PT Pain in left hip [M25.552] [facility] Comment on above: Pain in left hip [M2 5.552] Start: 10-01-2024 Annual PCP Team Jeramie hall Disease Visit Annual PCP Team Chronic Disease Visit [facility] Start: 10-01-2024 RSV Vaccine (1 - 1-d ose 60+ series) RSV Vaccine (1 - 1-dose 60+ series) [facility] Comment on above: Postponed from 03/10 (Insurance Coverage) Start: 10-01-2024 End: 10-01-2024 Patient encounter procedure 10/01/2024 10:00 AM EST Office Visit [facility] [address] [place] [address] Rito Camp MD [address] [place] [address] Medicare wellness [facility] Comment on above: Medicare wellness Start: 09-24-2024 End: 09-24-2024 ambulatory 09/24/2024 10:15 AM EST Results Only [facility] [address] [place] [address] fasting lab work [facility] Comment on above: fasting lab work Start: 09-23-2024 End: 09-23-2024 ambulatory 09/23/2024 10:15 AM EST Results Only [facility] [address] [place] [address] [place] [facility] Start: 09-21-2024 DIABETES SCREEN DIABETES SCREEN [facility] Start: 09-17-2024 End: 09-17-2024 ambulatory 09/17/2024 10:15 AM EST OT/PT/Speech Visit [facility] [address] [place] [address] Mary Ann Oscar, PT Left hip pain [M25.552] [facility] Comment on above: Left hip pain [M25.5 52] Start: 09-08-2024 End: 12-08-2024 25-hydroxyvitamin D3 [Mass/volume] in Serum or Plasma VITAMIN D 25 HYDROXY Lab Routine Osteoporosis, unspecified osteoporosis type, unspecified pathological fracture presence Expected: 09/08/2024, Expires: 12/08/2024 [facility] Comment on above: Expected: 09/08/2024 , Expires: 12/08/2024 Start: 09-08-2024 End: 12-08-2024 CBC W Auto Differential panel - Blood COMPLETE BLOOD COUNT AND DIFFERENTIAL Lab Routine Essential hypertension, benign Expected: 09/08/2024, Expires: 12/08/2024 [facility] Comment on above: Expected: 09/08/2024 , Expires: 12/08/2024 Start: 09-08-2024 End: 12-08-2024 Cobalamin (Vitamin B12) [Mass/volume] in Serum or Plasma VITAMIN B12 Lab Routine Heavy alcohol use Medication management Expected: 09/08/2024, Expires: 12/08/2024 [facility] Work Phone: Comment on above: Expected: 09/08/2024 , Expires: 12/08/2024 Start: 09-08-2024 End: 12-08-2024 Comprehensive metabolic 2000 panel - Serum or Plasma COMPREHENSIVE METABOLIC PANEL Lab Routine Elevated blood sugar Expected: 09/08/2024, Expires: 12/08/2024 [facility] Comment on above: Expected: 09/08/2024 , Expires: 12/08/2024 Start: 09-08-2024 End: 12-08-2024 Hemoglobin A1c in Blood HEMOGLOBIN A1C Lab Routine Elevated blood sugar Expected: 09/08/2024, Expires: 12/08/2024 [facility] Comment on above: Expected: 09/08/2024 , Expires: 12/08/2024 Start: 09-08-2024 End: 12-08-2024 Iron and Iron binding capacity panel - Serum or Plasma IRON AND TIBC Lab Routine Heavy alcohol use Medication management Expected: 09/08/2024, Expires: 12/08/2024 [facility] Comment on above: Expected: 09/08/2024 , Expires: 12/08/2024 Start: 09-08-2024 End: 12-08-2024 LIPID PANEL, NONFASTING LIPID PANEL, NONFASTING Lab Routine Essential hypertension, benign Expected: 09/08/2024, Expires: 12/08/2024 [facility] Comment on above: Expected: 09/08/2024 , Expires: 12/08/2024 Start: 09-08-2024 End: 12-08-2024 Magnesium [Mass/volume] in Serum or Plasma MAGNESIUM Lab Routine Medication management Expected: 09/08/2024, Expires: 12/08/2024 [facility] Comment on above: Expected: 09/08/2024 , Expires: 12/08/2024 Start: 09-08-2024 End: 12-08-2024 Thyrotropin [Units/volume] in Serum or Plasma THYROID STIMULATING HORMONE Lab Routine Multiple thyroid nodules Expected: 09/08/2024, Expires: 12/08/2024 [facility] Comment on above: Expected: 09/08/2024 , Expires: 12/08/2024 Start: 09-08-2024 End: 12-08-2024 Urinalysis complete panel - Urine URINALYSIS, WITH MICROSCOPIC Lab Routine Elevated blood sugar Expected: 09/08/2024, Expires: 12/08/2024 [facility] Comment on above: Expected: 09/08/2024 , Expires: 12/08/2024 Start: 09-02-2024 Advance Directive Discussion Advance Directive Discussion [facility] Start: 08-31-2024 End: 08-31-2024 ambulatory 08/31/2024 9:00 AM EST OT/PT/Speech [facility] [address] [place] [address] Jeancarlos Fraser, PT My left side has been hurting for over 2 weeks [facility] Comment on above: My left side has bee n hurting for over 2 weeks Start: 08-15-2024 Annual PCP Team Landscaper dontae Disease Visit Annual PCP Team Chronic Disease Visit [facility] Start: 08-03-2024 End: 08-03-2024 Patient encounter procedure 08/03/2024 9:20 AM EST Office Visit [facility] [address] [facility] [place] [address] Alex Brown APRN.COMPOUNDING AND FINISHING SUPERVISOR [address] [place] [address] pain in left side constant x2 weeks [facility] [place] Comment on above: pain in left side co nstant x2 weeks Start: 06-23-2024 End: 06-23-2024 Patient encounter procedure 06/23/2024 9:10 AM EDT Appointment Mammogram [address] [place] [address] screening mammogram Mammogram Comment on above: screening mammogram Start: 06-18-2024 End: 06-18-2024 Patient encounter procedure 06/18/2024 10:10 AM EDT Appointment Mammogram [address] [place] [address] screening mammogram Mammogram Comment on above: screening mammogram Start: 06-16-2024 End: 06-16-2024 ambulatory 06/16/2024 10:00 AM EDT OT/PT/Speech Visit [facility] [address] [place] [address] Jeancarlos Fraser, PT Tendinopathy of rotator cuff, unspecified laterality [M67.919] [facility] Comment on above: Tendinopathy of rota tor cuff, unspecified laterality [M67.919] Start: 06-11-2024 BP Controlled (<130/80) BP Controlle d (<130/80) [facility] Start: 06-11-2024 Mammography Mammogram Screening [facility] Start: 06-11-2024 Screening for malign ant neoplasm of breast Mammogram Screening [facility] Start: 06-08-2024 Annual PCP Team Landscaper dontae Disease Visit Annual PCP Team Chronic Disease Visit [facility] Start: 06-04-2024 Annual PCP Team Landscaper dontae Disease Visit Annual PCP Team Chronic Disease Visit [facility] Start: 05-27-2024 End: 05-27-2024 ambulatory 05/27/2024 10:45 AM EDT OT/PT/Speech Visit [facility] [address] [place] [address] Josué Elder, PT [address] [place] [address] SHOULDER PAIN [facility] Comment on above: SHOULDER PAIN Start: 05-19-2024 PNEUMOVAX AGE 65 AND OVER WITH 5YR LOOKBACK (#1) PNEUMOVAX AGE 65 AND OVER WITH 5YR LOOKBACK (#1) [facility] Start: 05-14-2024 Annual PCP Team Landscaper dontae Disease Visit Annual PCP Team Chronic Disease Visit [facility] Start: 05-03-2024 Influenza vaccination Influenza Vacc ine (#1) [facility] Start: 04-24-2024 End: 04-24-2024 Patient encounter procedure 04/24/2024 9:20 AM EDT Appointment Radiology [address] [place] [address] Fall, initial encounter [W19.XXXA] Radiology Comment on above: Fall, initial encoun ter [W19.XXXA] Start: 02-21-2024 ANNUAL PCP TEAM MANAGER [employer] DONTAE DISEASE VISIT ANNUAL PCP TEAM CHRONIC DISEASE VISIT [facility] Start: 02-16-2024 ANNUAL PCP TEAM MANAGER [employer] DONTAE DISEASE VISIT ANNUAL PCP TEAM CHRONIC DISEASE VISIT [facility] Start: 12-31-2023 End: 12-31-2023 Patient encounter procedure 12/31/2023 10:30 AM EDT Office Visit Cardiology [address] [place] [address] Ectatic thoracic aorta (HCC) [I77.810] Cardiology Comment on above: Ectatic thoracic aor ta (HCC) [I77.810] Start: 12-19-2023 BP CONTROLLED (<130/80) BP CONTROLLE D (<130/80) [facility] Start: 11-20-2023 ANNUAL PCP TEAM MANAGER [employer] DONTAE DISEASE VISIT ANNUAL PCP TEAM CHRONIC DISEASE VISIT [facility] Start: 11-20-2023 BP CONTROLLED (<130/80) BP CONTROLLE D (<130/80) [facility] Start: 09-27-2023 ANNUAL PCP TEAM MANAGER [employer] DONTAE DISEASE VISIT ANNUAL PCP TEAM CHRONIC DISEASE VISIT [facility] Start: 09-20-2023 End: 11-20-2023 CBC W Auto Differential panel - Blood CBC + DIFF Lab Routine Medication management Expected: 09/20/2023, Expires: 11/20/2023 [facility] Work Phone: Comment on above: Expected: 09/20/2023 , Expires: 11/20/2023 Start: 09-20-2023 End: 11-20-2023 Cobalamin (Vitamin B12) [Mass/volume] in Serum or Plasma VITAMIN B12 BLOOD Lab Routine Medication management GERD without esophagitis Expected: 09/20/2023, Expires: 11/20/2023 [facility] Work Phone: Comment on above: Expected: 09/20/2023 , Expires: 11/20/2023 Start: 09-20-2023 End: 11-20-2023 Comprehensive metabolic 2000 panel - Serum or Plasma COMP METABOLIC PANEL Lab Routine Essential hypertension, benign Expected: 09/20/2023, Expires: 11/20/2023 [facility] Work Phone: Comment on above: Expected: 09/20/2023 , Expires: 11/20/2023 Start: 09-20-2023 End: 11-20-2023 Hemoglobin A1c in Blood HGB A1C Lab Routine Elevated blood sugar Expected: 09/20/2023, Expires: 11/20/2023 [facility] Work Phone: Comment on above: Expected: 09/20/2023 , Expires: 11/20/2023 Start: 09-20-2023 End: 11-20-2023 LIPID PANEL, NONFASTING LIPID PANEL, NONFASTING Lab Routine Essential hypertension, benign Expected: 09/20/2023, Expires: 11/20/2023 [facility] Work Phone: Comment on above: Expected: 09/20/2023 , Expires: 11/20/2023 Start: 09-20-2023 End: 11-20-2023 Magnesium [Mass/volume] in Serum or Plasma MAGNESIUM BLD Lab Routine Medication management GERD without esophagitis Expected: 09/20/2023, Expires: 11/20/2023 [facility] Work Phone: Comment on above: Expected: 09/20/2023 , Expires: 11/20/2023 Start: 09-20-2023 End: 11-20-2023 Thyrotropin [Units/volume] in Serum or Plasma TSH BLD Lab Routine Multiple thyroid nodules Expected: 09/20/2023, Expires: 11/20/2023 [facility] Work Phone: Comment on above: Expected: 09/20/2023 , Expires: 11/20/2023 Start: 09-20-2023 End: 11-20-2023 Urinalysis complete panel - Urine URINALYSIS, WITH MICROSCOPIC Lab Routine Essential hypertension, benign Expected: 09/20/2023, Expires: 11/20/2023 [facility] Work Phone: Comment on above: Expected: 09/20/2023 , Expires: 11/20/2023 Start: 09-02-2023 Behavioral Health Screening Behavioral Health Screening [facility] Start: 07-31-2023 BP CONTROLLED (<130/80) BP CONTROLLE D (<130/80) [facility] Start: 07-31-2023 Mammography [facility] Start: 07-09-2023 ANNUAL PCP TEAM MANAGER [employer] DONTAE DISEASE VISIT ANNUAL PCP TEAM CHRONIC DISEASE VISIT [facility] Start: 07-09-2023 BP CONTROLLED (<130/80) BP CONTROLLE D (<130/80) [facility] Start: 06-06-2023 End: 08-06-2023 CBC W Auto Differential panel - Blood CBC + DIFF Lab Routine Leukocytosis, unspecified type Expected: 06/06/2023, Expires: 08/06/2023 [facility] Work Phone: Comment on above: Expected: 06/06/2023 , Expires: 08/06/2023 Start: 06-02-2023 End: 06-02-2023 [facility] Start: 06-02-2023 Patient discharge [facility] Start: 06-01-2023 [facility] Start: 06-01-2023 Blood chemistry [facility] Start: 06-01-2023 Application of intermittent pneumatic compression device [facility] Start: 06-01-2023 Following clinical p athway protocol [facility] Start: 06-01-2023 Assessment of risk o f venous thromboembolism [facility] Start: 06-01-2023 Documentation procedure [facility] Start: 06-01-2023 Insertion of cathete r into peripheral vein [facility] Start: 06-01-2023 Insertion of nasogas tric tube [facility] Start: 06-01-2023 Oxygen therapy [facility] Start: 06-01-2023 Providing care accor ding to standard [facility] Start: 06-01-2023 Referral to general surgeon [facility] Start: 06-01-2023 End: 06-01-2023 [facility] Start: 06-01-2023 Verification routine [facility] Start: 06-01-2023 Admission procedure [facility] Start: 05-28-2023 ANNUAL PCP TEAM MANAGER [employer] DONTAE DISEASE VISIT ANNUAL PCP TEAM CHRONIC DISEASE VISIT [facility] Start: 05-28-2023 BP CONTROLLED (<130/80) BP CONTROLLE D (<130/80) [facility] Start: 05-03-2023 Influenza vaccination [facility] Start: 04-30-2023 ANNUAL PCP TEAM MANAGER [employer] DONTAE DISEASE VISIT ANNUAL PCP TEAM CHRONIC DISEASE VISIT [facility] Start: 04-30-2023 BP CONTROLLED (<130/80) BP CONTROLLE D (<130/80) [facility] Start: 04-06-2023 BP CONTROLLED (<130/80) BP CONTROLLE D (<130/80) [facility] Start: 03-29-2023 End: 09-27-2023 CBC W Auto Differential panel - Blood CBC + DIFF Lab Routine Thrombocytosis Expected: 03/29/2023, Expires: 05/29/2023 [facility] Work Phone: Comment on above: Expected: 03/29/2023 , Expires: 05/29/2023 Start: 03-23-2023 ANNUAL PCP TEAM MANAGER [employer] DONTAE DISEASE VISIT ANNUAL PCP TEAM CHRONIC DISEASE VISIT [facility] Start: 03-23-2023 BP CONTROLLED (<130/80) BP CONTROLLE D (<130/80) [facility] Start: 03-14-2023 BP CONTROLLED (<130/80) BP CONTROLLE D (<130/80) [facility] Start: 02-27-2023 End: 04-29-2023 CBC W Auto Differential panel - Blood CBC + DIFF Lab Routine Thrombocytosis Expected: 02/27/2023, Expires: 04/29/2023 [facility] Work Phone: Comment on above: Expected: 02/27/2023 , Expires: 04/29/2023 Start: 02-27-2023 End: 04-29-2023 Ferritin [Mass/volume] in Serum or Plasma FERRITIN BLD Lab Routine Thrombocytosis Expected: 02/27/2023, Expires: 04/29/2023 [facility] Work Phone: Comment on above: Expected: 02/27/2023 , Expires: 04/29/2023 Start: 02-27-2023 End: 04-29-2023 Iron and Iron binding capacity panel - Serum or Plasma IRON + TIBC Lab Routine Thrombocytosis Expected: 02/27/2023, Expires: 04/29/2023 [facility] Work Phone: Comment on above: Expected: 02/27/2023 , Expires: 04/29/2023 Start: 12-19-2022 ANNUAL PCP TEAM MANAGER [employer] [place]E DISEASE VISIT ANNUAL PCP TEAM CHRONIC DISEASE VISIT [facility] Start: 12-19-2022 BP CONTROLLED (<130/80) BP CONTROLLE D (<130/80) [facility] Start: 12-04-2022 End: 02-03-2023 CREATININE BLD CREATININE BLD Lab Routine Essential hypertension, benign Expected: 12/04/2022, Expires: 02/03/2023 [facility] Work Phone: Comment on above: Expected: 12/04/2022 , Expires: 02/03/2023 Start: 11-19-2022 End: 01-19-2023 Thyrotropin [Units/volume] in Serum or Plasma [facility] Work Phone: Comment on above: Expected: 11/19/2022 , Expires: 01/19/2023 Start: 11-19-2022 End: 01-19-2023 Thyroxine (T4) free [Mass/volume] in Serum or Plasma [facility] Work Phone: Comment on above: Expected: 11/19/2022 , Expires: 01/19/2023 Start: 10-31-2022 End: 12-31-2022 CBC W Auto Differential panel - Blood CBC + DIFF Lab Routine Leukocytosis, unspecified type Expected: 10/31/2022, Expires: 12/31/2022 [facility] Work Phone: Comment on above: Expected: 10/31/2022 , Expires: 12/31/2022 Start: 10-24-2022 ANNUAL PCP TEAM MANAGER [employer] DONTAE DISEASE VISIT ANNUAL PCP TEAM CHRONIC DISEASE VISIT [facility] Start: 10-24-2022 BP CONTROLLED (<130/80) BP CONTROLLE D (<130/80) [facility] Start: 09-12-2022 End: 11-12-2022 CBC W Auto Differential panel - Blood CBC + DIFF Lab Routine Medication management Expected: 09/12/2022, Expires: 11/12/2022 [facility] Work Phone: Comment on above: Expected: 09/12/2022 , Expires: 11/12/2022 Start: 09-12-2022 End: 11-12-2022 Cobalamin (Vitamin B12) [Mass/volume] in Serum or Plasma VITAMIN B12 BLOOD Lab Routine Medication management GERD without esophagitis Expected: 09/12/2022, Expires: 11/12/2022 [facility] Work Phone: Comment on above: Expected: 09/12/2022 , Expires: 11/12/2022 Start: 09-12-2022 End: 11-12-2022 Comprehensive metabolic 2000 panel - Serum or Plasma COMP METABOLIC PANEL Lab Routine Essential hypertension, benign Expected: 09/12/2022, Expires: 11/12/2022 [facility] Work Phone: Comment on above: Expected: 09/12/2022 , Expires: 11/12/2022 Start: 09-12-2022 End: 11-12-2022 Hemoglobin A1c in Blood HGB A1C Lab Routine Elevated blood sugar Expected: 09/12/2022, Expires: 11/12/2022 [facility] Work Phone: Comment on above: Expected: 09/12/2022 , Expires: 11/12/2022 Start: 09-12-2022 End: 11-12-2022 LIPID PANEL, NONFASTING LIPID PANEL, NONFASTING Lab Routine Essential hypertension, benign Expected: 09/12/2022, Expires: 11/12/2022 [facility] Work Phone: Comment on above: Expected: 09/12/2022 , Expires: 11/12/2022 Start: 09-12-2022 End: 11-12-2022 Magnesium [Mass/volume] in Serum or Plasma MAGNESIUM BLD Lab Routine Medication management GERD without esophagitis Expected: 09/12/2022, Expires: 11/12/2022 [facility] Work Phone: Comment on above: Expected: 09/12/2022 , Expires: 11/12/2022 Start: 09-12-2022 End: 11-12-2022 Thyrotropin [Units/volume] in Serum or Plasma TSH BLD Lab Routine Multiple thyroid nodules Expected: 09/12/2022, Expires: 11/12/2022 [facility] Work Phone: Comment on above: Expected: 09/12/2022 , Expires: 11/12/2022 Start: 09-12-2022 End: 11-12-2022 Urinalysis complete panel - Urine URINALYSIS, WITH MICROSCOPIC Lab Routine Essential hypertension, benign Expected: 09/12/2022, Expires: 11/12/2022 [facility] Work Phone: Comment on above: Expected: 09/12/2022 , Expires: 11/12/2022 Start: 09-02-2022 ADVANCE DIRECTIVE DISCUSSION ADVANCE DIRECTIVE DISCUSSION [facility] Start: 09-02-2022 DEPRESSION ASSESSMENT DEPRESSION ASS ESSMENT [facility] Start: 07-25-2022 Mammography MAMMOGRAM [facility] Start: 07-04-2022 End: 07-18-2022 Influenza virus A and B RNA and SARS-CoV-2 (COVID-19) N gene panel - Respiratory specimen by THOMAS with probe detection COVID WITH FLUA+B, ROUTINE Microbiology Routine Suspected COVID-19 virus infection Expected: 07/04/2022, Expires: 07/18/2022 [facility] Work Phone: Comment on above: Expected: 07/04/2022 , Expires: 07/18/2022 Start: 05-11-2022 FECAL OCCULT BLOOD FECAL OCCULT BLOO D [facility] Start: 05-11-2022 Screening for malign ant neoplasm of colon Fecal Occult Blood [facility] Start: 05-03-2022 Influenza vaccination INFLUENZA (#1) [facility] Start: 03-23-2022 End: 05-23-2022 CBC W Auto Differential panel - Blood [facility] Work Phone: Comment on above: Expected: 03/23/2022 , Expires: 05/23/2022 Start: 03-18-[facility]22 [facility] Start: 03-18-2022 [facility] Work Phone: Start: 03-18-2022 [facility] Work Phone: Start: 03-17-2022 Following clinical p athway protocol [facility] Work Phone: Start: 03-17-2022 Assessment of risk o f venous thromboembolism [facility] Work Phone: Start: 03-17-2022 Incentive spirometry [facility] Work Phone: Start: 03-17-2022 Inhalation therapy procedure [facility] Work Phone: Start: 03-17-2022 Insertion of cathete r into peripheral vein [facility] Work Phone: Start: 03-17-2022 Insertion of nasogas tric tube [facility] Work Phone: Start: 03-17-2022 Introduction of urin gibson catheter [facility] Work Phone: Start: 03-17-2022 Measuring intake and output [facility] Work Phone: Start: 03-17-2022 Oxygen therapy [facility] Work Phone: Start: 03-17-2022 Providing care accor ding to standard [facility] Work Phone: Start: 03-17-2022 Provision of activit y privileges [facility] Work Phone: Start: 03-17-2022 Referral to general surgeon [facility] Work Phone: Start: 03-17-2022 Referral to service [facility] Work Phone: Start: 03-17-2022 [facility] Work Phone: Start: 03-17-2022 Verification routine [facility] Work Phone: Start: 03-17-2022 Admission procedure [facility] Work Phone: Start: 03-17-2022 Plain X-ray abdomen Abdomen Si ngle View (Portable) [facility] Work Phone: Start: 03-17-2022 XR Abdomen Single view [facility] Work Phone: Start: 03-17-2022 [facility] Work Phone: Start: 02-13-2022 BP CONTROLLED (<130/80) BP CONTROLLE D (<130/80) [facility] Start: 01-19-2022 End: 03-21-2022 VITAMIN B12 BLOOD VITAMIN B12 BLOOD Lab Routine High serum vitamin B12 Expected: 01/19/2022, Expires: 03/21/2022 [facility] Work Phone: Comment on above: Expected: 01/19/2022 , Expires: 03/21/2022 Start: 01-19-2022 End: 03-21-2022 VITAMIN D 25 HYDROXY VITAMIN D 25 HYDROXY Lab Routine High vitamin D level Expected: 01/19/2022, Expires: 03/21/2022 [facility] Work Phone: Comment on above: Expected: 01/19/2022 , Expires: 03/21/2022 Start: 12-19-2021 End: 02-18-2022 Ascorbate [Mass/volume] in Serum or Plasma [facility] Work Phone: Comment on above: Expected: 12/19/2021 , Expires: 02/18/2022 Start: 12-19-2021 End: 02-18-2022 Folate [Mass/volume] in Serum or Plasma [facility] Work Phone: Comment on above: Expected: 12/19/2021 , Expires: 02/18/2022 Start: 12-19-2021 End: 02-18-2022 IRON + TIBC [facility] Work Phone: Comment on above: Expected: 12/19/2021 , Expires: 02/18/2022 Start: 12-19-2021 End: 02-18-2022 VITAMIN B12 BLOOD [facility] Work Phone: Comment on above: Expected: 12/19/2021 , Expires: 02/18/2022 Start: 12-19-2021 End: 02-18-2022 VITAMIN D 25 HYDROXY [facility] Work Phone: Comment on above: Expected: 12/19/2021 , Expires: 02/18/2022 Start: 09-02-2021 ADVANCE DIRECTIVE DISCUSSION ADVANCE DIRECTIVE DISCUSSION [facility] Start: 09-02-2021 DEPRESSION ASSESSMENT DEPRESSION ASS ESSMENT [facility] Start: 2016 RSV Vaccine (1 - 1-d ose 60+ series) RSV Vaccine (1 - 1-dose 60+ series) [facility] Start: 2001 COLOGUARD (FIT-DNA) [facility] Start: [address] COLONOGRAPHY [facility] Start: 2001 Screening for malign ant neoplasm of colon [facility] Start: 2001 [facility] Start: 1986 Zoledronic acid therapy ALPHA- 1 ANTITRYPSIN DEFICIENCY SCREENING [facility] Start: 1974 Depression Screening Depression Scre ening [facility] Anion gap measurement [facility] Bacteria identified in Urine by Culture URINE CULTURE Microbiology Routine Dysuria 06/03/2024 10:52 AM EDT [facility] End: 10-31-2025 BD DXA TRABECULAR BONE SCORE (TBS) BD DXA TRABECULAR BONE SCORE (TBS) Radiology Routine Osteoporosis, unspecified osteoporosis type, unspecified pathological fracture presence 1 Occurrences starting 10/01/2024 until 10/31/2025 [facility] Comment on above: 1 Occurrences starti ng 10/01/2024 until 10/31/2025 BUN/Creatinine ratio [facility] Calcium [Mass/volume ] in Serum or Plasma [facility] Carbon dioxide, tota l [Moles/volume] in Serum or Plasma [facility] Chlamydia trachomatis+Neisseria gonorrhoeae DNA [Presence] in Unspecified specimen by THOMAS with probe detection GONORRHEA/CHLAMYDIA NAAT Lab Routine Dysuria Ordered: 06/03/2024 [facility] Comment on above: Ordered: 06/03/2024 Chloride [Moles/volu me] in Serum or Plasma [facility] COVID & INFLUENZA A/ B & RSV NAAT, ROUTINE COVID & INFLUENZA A/B & RSV NAAT, ROUTINE Microbiology Routine Suspected COVID-19 virus infection 06/08/2023 11:28 AM EDT [facility] Work Phone: Creatinine [Moles/vo lume] in Serum or Plasma [facility] End: 01-03-2024 Ct abdomen & pelvis w/contrast material CT ABD/PEL W IVCON Radiology Routine Ex-smoker Weight loss, unintentional 1 Occurrences starting 12/04/2022 until 01/03/2024 [facility] Work Phone: Comment on above: 1 Occurrences starti ng 12/04/2022 until 01/03/2024 CT Chest [facility] CT [facility] End: 12-19-2023 Ct thorax w/o contrast material CT CHEST WO IVCON Radiology Routine Weight loss Ex-smoker Lung nodules 1 Occurrences starting 11/19/2022 until 12/19/2023 [facility] Work Phone: Comment on above: 1 Occurrences starti ng 11/19/2022 until 12/19/2023 End: 03-16-2024 CTA HEAD W IVCON CTA HEAD W IVCON Radiology Routine New onset of headaches after age 50 1 Occurrences starting 02/15/2023 until 03/16/2024 [facility] Work Phone: Comment on above: 1 Occurrences starti ng 02/15/2023 until 03/16/2024 End: 10-31-2025 DXA Skeletal system.axial Views for bone density DXA-AXIAL SKELETON Radiology Routine Osteoporosis, unspecified osteoporosis type, unspecified pathological fracture presence 1 Occurrences starting 10/01/2024 until 10/31/2025 [facility] Work Phone: Comment on above: 1 Occurrences starti ng 10/01/2024 until 10/31/2025 End: 10-27-2023 DXA-AXIAL SKELETON DXA-AXIAL SKELETON Radiology Routine Osteoporosis, unspecified osteoporosis type, unspecified pathological fracture presence 1 Occurrences starting 09/27/2022 until 10/27/2023 [facility] Work Phone: Comment on above: 1 Occurrences starti ng 09/27/2022 until 10/27/2023 End: 07-09-2023 ECG COMPLETE ECG COMPLETE ECG Routine Feeling of chest tightness Chest heaviness SOB (shortness of breath) 1 Occurrences starting 07/09/2022 until 07/09/2023 [facility] Work Phone: Comment on above: 1 Occurrences starti ng 07/09/2022 until 07/09/2023 End: 01-05-2026 Echocardiography ECHO Cardiology Routine Ectatic thoracic aorta 1 Occurrences starting 01/05/2025 until 01/05/2026 [facility] Work Phone: Comment on above: 1 Occurrences starti ng 01/05/2025 until 01/05/2026 Glucose [Mass/volume ] in Serum or Plasma [facility] Helicobacter pylori Ag [Presence] in Stool by Immunoassay [facility] Hematocrit [Volume Fraction] of Blood [facility] Hemoglobin [Mass/vol ume] in Blood [facility] Leukocytes [#/volume ] in Blood [facility] Magnesium [Mass/volu me] in Serum or Plasma [facility] Work Phone: Mean corpuscular hemoglobin concentration determination [facility] Mean corpuscular hemoglobin determination [facility] Measurement of renal function [facility] MG Breast Screening MARCIANO SCREENIN G Radiology Routine Encounter for screening mammogram for breast cancer 07/01/2024 11:46 AM EDT [facility] Work Phone: End: 06-03-2026 MR Lumbar spine WO contrast MRI LUMBAR SPINE WO IVCON Radiology Routine Lumbar radiculopathy Lumbar back pain Radiculopathy of lumbar region 1 Occurrences starting 05/04/2025 until 06/03/2026 [facility] Work Phone: Comment on above: 1 Occurrences starti ng 05/04/2025 until 06/03/2026 End: 04-25-2025 MR Shoulder - left WO and W contrast IV MRI SHOULDER WO/W IVCON LEFT Radiology Routine Fall, initial encounter Acute pain of left shoulder 1 Occurrences starting 03/26/2024 until 04/25/2025 [facility] Work Phone: Comment on above: 1 Occurrences starti ng 03/26/2024 until 04/25/2025 Neutrophil count [facility] Neutrophil percent differential count [facility] Patient Education ED Anxiety Reaction [facility] Work Phone: Patient referral [facility] Work Phone: Platelets [#/volume] in Blood [facility] Potassium [Moles/vol ume] in Serum or Plasma [facility] Red blood cell count [facility] Red cell distributio n width determination [facility] ROUTINE FLU A/B + RSV ROUTINE FL U A/B + RSV Lab Routine Suspected COVID-19 virus infection 06/08/2023 11:28 AM EDT [facility] Work Phone: SARS-CoV-2 (COVID-19 ) RNA [Presence] in Respiratory specimen by THOMAS with probe detection COVID NAAT, UPPER RESPIRATORY, ROUTINE Microbiology Routine Suspected COVID-19 virus infection 06/08/2023 11:28 AM EDT [facility] Work Phone: End: 08-30-2023 Screening mammography bi 2-view breast inc cad MARCIANO SCREENING Radiology Routine Encounter for gynecological examination (general) (routine) without abnormal findings Encounter for screening mammogram for breast cancer 1 Occurrences starting 07/31/2022 until 08/30/2023 [facility] Work Phone: Comment on above: 1 Occurrences starti ng 07/31/2022 until 08/30/2023 Sodium [Moles/volume ] in Serum or Plasma [facility] TRICHOMONAS VAGINALIS NAAT TRICH OMONAS VAGINALIS NAAT Lab Routine Dysuria Ordered: 06/03/2024 [facility] Work Phone: Comment on above: Ordered: 06/03/2024 Urea nitrogen [Mass/volume] in Serum or Plasma [facility] End: 12-19-2023 US ABDOMEN COMPLETE US ABDOMEN COMPLETE Radiology Routine Weight loss Ex-smoker 1 Occurrences starting 11/19/2022 until 12/19/2023 [facility] Work Phone: Comment on above: 1 Occurrences starti ng 11/19/2022 until 12/19/2023 End: 04-22-2023 Us pelvic nonobstetric real-time image complete US FEMALE PELVIS TRANSABD COMPLETE Radiology Routine Enlarged uterus Lower abdominal pain 1 Occurrences starting 03/23/2022 until 04/22/2023 [facility] Work Phone: Comment on above: 1 Occurrences starti ng 03/23/2022 until 04/22/2023 End: 04-22-2023 Us transvaginal US FEMALE PELVIS TRANSVAG Radiology Routine Enlarged uterus Lower abdominal pain 1 Occurrences starting 03/23/2022 until 04/22/2023 [facility] Work Phone: Comment on above: 1 Occurrences starti ng 03/23/2022 until 04/22/2023 Us transvaginal US FEMALE PELVIS TRANSVAG Radiology Routine Enlarged uterus Lower abdominal pain 03/29/2022 10:30 AM EDT [facility] Work Phone: Vitamin D, 25-hydrox y measurement [facility] XR ABDOMEN 1V SUPINE XR ABDOMEN 1V SUPINE Radiology Routine Partial intestinal obstruction, unspecified cause (HCC) 03/23/2022 8:49 AM EDT [facility] Work Phone: End: 09-02-2025 XR Pelvis and Hip - left AP and Lateral frog XR HIP GENERAL 3V PELV/AP/LAT LEFT Radiology Routine Left hip pain 1 Occurrences starting 08/03/2024 until 09/02/2025 [facility] Work Phone: Comment on above: 1 Occurrences starti ng 08/03/2024 until 09/02/2025 XR Pelvis and Hip - left AP and Lateral frog XR HIP GENERAL 3V PELV/AP/LAT LEFT Radiology Routine Left hip pain 08/03/2024 10:22 AM EST [facility] End: 11-13-2024 XR Shoulder - right 3 Views XR SHOULDER GENERAL 3V OR MORE AP/TRUE AP/OTHER RIGHT Radiology Routine Neck pain Acute pain of right shoulder 1 Occurrences starting 10/15/2023 until 11/13/2024 [facility] Work Phone: Comment on above: 1 Occurrences starti ng 10/15/2023 until 11/13/2024 XR Shoulder - right 3 Views XR SHOULDER GENERAL 3V OR MORE AP/TRUE AP/OTHER RIGHT Radiology Routine Neck pain Acute pain of right shoulder 10/15/2023 9:38 AM EST [facility] Work Phone: [facility] Immunizations Immunization Date Immunization Notes Care Provider Radha lorenzana 06-30-2024 influenza virus vacc ine, unspecified formulation Shanita Green PA-C Work Phone: [facility] 12-26-2023 pneumococcal conjuga te (PCV20) vaccine, 20 valent (PREVNAR 20) Rito Camp MD Work Phone: [facility] 12-26-2023 respiratory syncytia l virus (RSV) vaccine, adjuvanted (AREXVY) Rito Camp MD Work Phone: [facility] 06-05-2023 influenza, high dose seasonal, preservative-free Rito Camp MD Work Phone: [facility] 06-05-2023 influenza virus vacc ine, unspecified formulation Christine Parker RN [facility] 06-27-2022 influenza (aIIV4) vaccine, age 65+ yr, quadrivalent, PF (FLUAD QUADRIVALENT) Kami Hunter RN Work Phone: [facility] 06-27-2022 influenza virus vacc ine, unspecified formulation Rito Camp MD Work Phone: [facility] 11-14-2021 pneumococcal (PCV20) vaccine, 20 valent (PREVNAR 20) Kami Hunter RN [facility] 06-10-2021 COVID-19 vaccine, ag e 12+ yr (P[facility] - [facility]) Kami Hunter RN [facility] 05-29-2021 influenza, seasonal, injectable Kami Hunter RN [facility] 05-03-2021 Covid (Pfizer) Dr. Rito corona Work Phone: [facility] 04-02-2021 Covid (Pfizer) Dr. Rito corona Work Phone: [facility] 05-18-2020 influenza, injectabl e, quadrivalent, preservative free Kami Hunter RN [facility] Work Phone: 05-18-2020 influenza, seasonal, injectable Kami Hunter RN [facility] 05-18-2020 pneumococcal conjuga te vaccine, 13 valent Kami Hunter RN [facility] 05-19-2019 influenza, injectabl e, quadrivalent, preservative free Kami Hunter [facility] Work Phone: 05-19-2019 influenza, seasonal, injectable Kami Hunter RN [facility] 05-19-2019 pneumococcal polysaccharide vaccine, 23 valent Kami Hunter RN [facility] 04-04-2019 zoster vaccine recombinant Kami Hunter [facility] 12-18-2018 tetanus toxoid, redu darnell diphtheria toxoid, and acellular pertussis vaccine, adsorbed Kami Hunter [facility] Work Phone: 12-18-2018 zoster vaccine recombinant Kami Hunter [facility] Work Phone: 05-18-2018 influenza, seasonal, injectable Kami Hunter RN [facility] 05-12-2018 influenza, injectabl e, quadrivalent, contains preservative Kami Hunter RN [facility] 05-15-2017 influenza, seasonal, injectable Kami Hunter [facility] 05-15-2017 tetanus toxoid, redu darnell diphtheria toxoid, and acellular pertussis vaccine, adsorbed Kami Hunter RN [facility] 06-15-2015 influenza virus vacc ine, unspecified formulation Kami Hunter RN [facility] 06-12-[address] Rito Camp Work Phone: [facility] 06-12-2013 influenza, seasonal, injectable Kami Hunter RN [facility] 05-31-2012 influenza virus vacc ine, unspecified formulation Kami Hunter RN [facility] 06-21-2010 influenza virus vacc ine, unspecified formulation Kami Hunter RN [facility] 05-23-2009 influenza virus vacc ine, live, attenuated, for intranasal use Kami Hunter [facility] Work Phone: 07-08-2007 influenza virus vacc ine, unspecified formulation Kami Hunter RN [facility] 07-04-2005 pneumococcal polysaccharide vaccine, 23 valent Kami Hunter RN [facility] Work Phone: 01-05-2005 pneumococcal (PCV15) vaccine, 15 valent (VAXNEUVANCE) Shanita Green PA-C Work Phone: [facility] 01-05-[address] Kwan Camp Work Phone: [facility] Work Phone: 01-05-2005 pneumococcal vaccine , unspecified formulation Shanita Green PA-C Work Phone: [facility] Payers Date Payer Category Payer Self-pay [id number] 2020 Medicare (Managed Care) JANET RAMAN O [id number] 2020 Unknown JANET FERNÁNDEZ S AND BLUE SHIELD [facility] [id number] 2020-Present [phone] [address] [place] [address] [facility] [id number] 2020 Unknown [id number] 2014 Medicare [employer]P [employer] MDCR HMO [id number] 2014-2020 [address] [facility] [place] [address] O [id number] 2014 Unknown [id number] 2013 Unknown [id number] 2012 Unknown [id number] Unknown [id number] Unknown [id number] Unknown [id number] Unknown [id number] Unknown [id number] Unknown [id number] Unknown [id number] Unknown [id number] Unknown [id number] Unknown [id number] [id number] Unknown [id number] [id number] Unknown [id number] [id number] Unknown [id number] Unknown [id number] Unknown [id number] Unknown [id number] Social History Date Type Detail Facility Start: 08-06-2012 End: 06-03-2024 Tobacco smoking status NHIS Ex-smoker [facility] Start: 07-31-1990 End: 07-31-2005 History of tobacco use Current smoker [facility] Start: 07-31-1990 End: 07-31-2005 History of tobacco use Cigarette Smoker [facility] Start: 08-06-2012 End: 01-21-2023 Cigarettes smoked current (pack per day) - Reported 1.5 [facility] Work Phone: Start: 08-06-2012 End: 06-03-2024 Tobacco use and exposure Smokeless tobacco non-user [facility] Start: 10-24-2021 End: 05-16-2025 Alcohol intake Current drinker of alcohol (finding) [facility] Start: 06-18-2016 History SDOH Alcohol Comment 5-8 beers daily [facility] Start: 1955 Sex Assigned At Not on file [facility] Start: 06-23-2020 End: 07-31-2022 Exposure to SARS-CoV-2 (event) Not sure [facility] Work Phone: Start: 07-11-2021 End: 06-01-2023 Tobacco smoking status MEIS Unknown if ever smoked [facility] Start: 1955 Sex Assigned At Female W [facility] Start: 03-16-2022 End: 03-26-2022 Exposure to SARS-CoV-2 (event) Unable to assess [facility] Work Phone: Start: 01-21-2023 End: 02-20-2023 Tobacco use panel [facility] Work Phone: Start: 08-03-2012 Adult Depression Screening Assessment 0 [facility] Work Phone: Start: 07-18-2013 Occasional [facility] Start: 07-18-2013 None [facility] Start: 07-18-2013 Spouse/ Signif icant Other [facility] Start: 07-18-2013 Non-smoker [facility] (I/We) worried wheth er (my/our) food would run out before (I/we) got money to buy more. Never true [facility] Do you belong to any clubs or organizations such as adventism groups, unions, fraAssurely or athletic groups, or school groups? No [facility] Are you now , , , , never or living with a partner? [facility] How often to you hav e a drink containing alcohol? 4 or more times a week [facility] How many standard drinks containing alcohol do you have on a typical day? 5 or 6 [facility] How often do you hav e 6 or more drinks on 1 occasion? Daily or almost daily [facility] Do you feel stress - tense, restless, nervous, or anxious, or unable to sleep at night because your mind is troubled all the time - these days [OSQ] To some extent [facility] Start: 11-30-2024 Sex Female (finding) [facility] Start: 05-06-2025 [facility] NEGATED: Highlighted row [facility] NEGATED: Highlighted row Not [facility] Goals Date Patient Goal Desired Activity /State [...] Assessment Result Facility 06-02-2023 Functional status Ambulates [facility] Work Phone: 03-18-2022 Functional status Ambulates;Up ad moisés [facility] Work Phone: 10-14-2018 Are you deaf, or do you have serious difficulty hearing No 10/14/2018 5:48 PM Darvin Proctor III, MD No [facility] 10-14-2018 Are you blind, or do you have serious difficulty seeing, even when wearing glasses No 10/14/2018 5:48 PM Darvin Proctor III, MD No [facility] 10-14-2018 Do you have serious difficulty walking or climbing stairs No 10/14/2018 5:48 PM Darvin Proctor III, MD No [facility] 10-14-2018 Do you have difficul ty dressing or bathing No 10/14/2018 5:48 PM Darvin Proctor III, MD [facility] 10-14-2018 Because of a physica l, mental, or emotional condition, do you have difficulty doing errands alone such as visiting a physician's office or shopping No 10/14/2018 5:48 PM Darvin Proctor III, MD [facility] Mental Status Date Assessment Result Facility 03-31-2025 Cognitive function Voice/Name [facility] Work Phone: 06-01-2023 Cognitive function Voice/Name [facility] Work Phone: 03-18-2022 Cognitive function Demonstrates ability to follow instructions/comprehend [facility] Work Phone: 03-17-2022 Cognitive function Voice/Name [facility] Work Phone: 10-14-2018 Because of a physica l, mental, or emotional condition, do you have serious difficulty concentrating, remembering, or making decisions No 10/14/2018 5:48 PM Darvin Proctor III, MD No [facility] Clinical Notes 01-03-2017 to 07-06-2025 Debo Fernandes, RT(R) - 05/16/2025 12:30 PM EDTMooKy morrow APRN.COMPOUNDING AND FINISHING SUPERVISOR - 05/16/2025 12:14 PM EDTTelephone Encounter - Jacki MarkMANDIE - 05/14/2025 10:43 AM EDT Note Date & Type Note Facility 07-06-2025 Note HNO ID: [id number] Author: ALEX BROWN APRN.LUIS FELIPE Service: ? [...] (EXEP) 05/23/2021 EF=65%, 1+TI. COLONOSCOPY N/A 03/31/2025 [facility] - Dr. Gill COLONOSCOPY FLX DX W/COLLJ SPEC WHEN PFRMD 08/19/2006 Repeat in COLONOSCOPY FLX DX W/COLLJ SPEC WHEN PFRMD 06/27/2016 Colonoscopy CRANIOPLASTY SKULL DEF/REPAIR/ BRAIN 09/14/2014 See scanned documents - status post EGD W/O [facility] SPEC VARICIES INJ N/A 03/31/2025 [facility] - Dr. Gill ESOPHAGOGASTRODUODENOSCOPY TRANSORAL DIAGNOSTIC [...] time a week. (more content not included)... [facility] 07-05-2025 Note HNO ID: [id number] Author: DESTINI CHAVARRIA Mammo Tech Service: ? Author Type: Genetics Teacher Type: Progress Notes Filed: 07/05/2025 11:47 [...] PATIENT PRESENTS WITH AN IMPLANTABLE OR ATTACHED BUSINESS DEVELOPMENT AGENT: No RADIOLOGY DEPARTMENT: Mammography PERIPHERAL IV DATA: Not applicable SIGNED BY: Bassam Gary July 05, 2025 11:46 AM [facility] 06-09-2025 Note HNO ID: [id number] Author: GERALD JOHN MA Service: ? Author Type: Dried Fruit Washer Type: Progress Notes Filed: 06/09/2025 09:07 Note Text: Scan on 06/08/2025 4:34 PM by Provider, [facility] [place]: Aneudy Hargrove [facility] 05-27-2025 Note HNO ID: [id number] Author: DEBO FERNANDES RT(R) Service: ? Author [...] PATIENT PRESENTS WITH AN IMPLANTABLE OR ATTACHED BUSINESS DEVELOPMENT AGENT: No RADIOLOGY DEPARTMENT: General X-ray: Exam(s) Completed: Upper Extremity X-Ray(s): Wrist, right and Hand, right PERIPHERAL IV DATA: Not applicable SIGNED BY: RT Rafa(R) May 27, 2025 9:18 AM [facility] 05-27-2025 Note HNO ID: [id number] Author: RITO CAMP MD Service: ? 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 Epstein, yesterday. She initially sought evaluation [...] improved since the fall. She notes that vmto-gkr-rvgflyr medications, including 800 mg of ibuprofen, have been ineffective. She has been using a wrist brace and applying ice packs twice daily, but reports no significant relief. She also tried various topical treatments, including lidocaine, Nevive, and [place], without improvement. The pain is affecting her [...] 01/27/2021 Chest tightne (more content not included)... [facility] 05-24-2025 Note HNO ID: [id number] Author: DEEP TOLBERT RT(Renata) Service: ? Author [...] PATIENT PRESENTS WITH AN IMPLANTABLE OR ATTACHED BUSINESS DEVELOPMENT AGENT: No RADIOLOGY DEPARTMENT: MR; Exam(s) Completed: Spine: Lumbar spine. Anesthesia: No. Aromatherapy Administered: No PERIPHERAL IV DATA: Not applicable SIGNED BY: RT Yoly(Renata) May 24, 2025 9:03 AM [facility] 05-16-2025 History of Presen t illness Narrative [...] PATIENT PRESENTS WITH AN IMPLANTABLE OR ATTACHED BUSINESS DEVELOPMENT AGENT: No RADIOLOGY DEPARTMENT: General X-ray: Exam(s) Completed: Upper Extremity X-Ray(s): Wrist, right PERIPHERAL IV DATA: Not applicable SIGNED BY: RT Rafa(Renata) May 16, 2025 12:16 PM documented in this encounter [facility] 05-16-2025 Note HNO ID: [id number] Author: DEBO FERNANDES RT(R) Service: ? Author [...] PATIENT PRESENTS WITH AN IMPLANTABLE OR ATTACHED BUSINESS DEVELOPMENT AGENT: No RADIOLOGY DEPARTMENT: General X-ray: Exam(s) Completed: Upper Extremity X-Ray(s): Wrist, right PERIPHERAL IV DATA: Not applicable SIGNED BY: RT Rafa(R) May 16, 2025 12:16 PM [facility] 05-16-2025 Note HNO ID: [id number] Author: [place] SHAVER APRN.COMPOUNDING AND FINISHING SUPERVISOR Service: ? Author Type: Nurse Practitioner Type: [...] WRIST GENERAL 3V PA/LAT/OBL RIGHT [place] ALAN Shaver.COMPOUNDING AND FINISHING SUPERVISOR Disposition The patient was discharged. Procedures [facility] 05-16-2025 History of Presen t illness Narrative [...] WRIST GENERAL 3V PA/LAT/OBL RIGHT [place] Shaver APRN.COMPOUNDING AND FINISHING SUPERVISOR Disposition The patient was discharged. Procedures documented in this encounter [facility] 05-14-2025 Telephone encounter Note Images from the original note were not included. Electronic PA rec'd and completed for cyclobenzaprine. This was approved. Prior authorization approved Payer: Janet Note from payer: SUNNY Case: [id number], Status: Approved, Coverage Starts on: 02/12/2025 12:00:00 AM, Coverage Ends on: 05/14/2026 12:00:00 AM. Approval Details Authorization number: [id number] Authorized from February 12, 2025 to May [...] to its destination. To be filled at: [employer] [address] [place] [address] - [address] [facility] - [phone] [facility] 05-14-2025 Miscellaneous Notes Images from the original note were not included. Electronic PA rec'd and completed for cyclobenzaprine. This was approved. Prior authorization approved Payer: Janet Note from payer: SUNNY Case: [id number], Status: Approved, Coverage Starts on: 02/12/2025 12:00:00 AM, Coverage Ends on: 05/14/2026 12:00:00 AM. Approval Details Authorization number: [id number] Authorized from February 12, 2025 to May [...] to its destination. To be filled at: [employer] [address] [place] [address] - [address] - [phone] documented in this encounter [facility] 05-14-2025 Note HNO ID: [id number] Author: ALEX BROWN APRN.COMPOUNDING AND FINISHING SUPERVISOR Service: ? Author Type: Nurse Practitioner Type: [...] (EXEP) 05/23/2021 EF=65%, 1+TI. COLONOSCOPY N/A 03/31/2025 [facility] - Dr. Gill COLONOSCOPY FLX DX W/COLLJ SPEC WHEN PFRMD 08/19/2006 Repeat in COLONOSCOPY FLX DX W/COLLJ SPEC WHEN PFRMD 06/27/2016 Colonoscopy CRANIOPLASTY SKULL DEF/REPAIR/ BRAIN 09/14/2014 See scanned documents - status post EGD W/O [facility] SPEC VARICIES INJ N/A 03/31/2025 [facility] - Dr. Gill ESOPHAGOGASTRODUODENOSCOPY TRANSORAL DIAGNOSTIC [...] capsule by mout (more content not included)... [facility] 05-14-2025 History of Presen t illness Narrative [...] (EXEP) 05/23/2021 EF=65%, 1+TI. COLONOSCOPY N/A 03/31/2025 [facility] - Dr. Gill COLONOSCOPY FLX DX W/COLLJ SPEC WHEN PFRMD 08/19/2006 Repeat in COLONOSCOPY FLX DX W/COLLJ SPEC WHEN PFRMD 06/27/2016 Colonoscopy CRANIOPLASTY SKULL DEF/REPAIR/ BRAIN 09/14/2014 See scanned documents - status post EGD W/O [facility] SPEC VARICIES INJ N/A 03/31/2025 [facility] - Dr. Gill ESOPHAGOGASTRODUODENOSCOPY TRANSORAL DIAGNOSTIC [...] 60 MG/2 ML INTRAMUSCULAR SOLUTION Alex Brown APRN.COMPOUNDING AND FINISHING SUPERVISOR [1] Social History Tobacco Use Smoking status: [...] Drug use: No documented in this encounter [facility] 05-12-2025 Note HNO ID: [id number] Author: GERALD JOHN MA Service: ? Author Type: Dried Fruit Washer Type: Progress Notes Filed: 05/12/2025 08:12 Note Text: Outside non [facility] ordered labs. View External Labs - H. Pylori [ID [id number]] [facility] 05-11-2025 Telephone encounter Note The following approved medication requests have been transmitted electronically. Requested Prescriptions Signed Prescriptions Disp Refills omeprazole (PRILOSEC) 40 mg capsule 90 capsule 1 Sig: Take 1 capsule by mouth once daily. Authorizing Provider: RITO CAMP MD [facility] 05-11-2025 Miscellaneous Notes The following approved [...] 2025 9:05 AM documented in this encounter [facility] 05-11-2025 Telephone encounter Note Prescription Refill [...] Mitzy Kirkland May 11, 2025 9:05 AM [facility] Work Phone: 05-07-2025 Note HNO ID: [id number] Author: GERALD JOHN MA Service: ? Author Type: Dried Fruit Washer Type: Progress Notes Filed: 05/07/2025 14:55 Note Text: Scan on 05/06/2025 3:25 PM by ProviderJenna PA-C: [facility] Initial Eval [facility] 05-07-2025 History of Presen t illness Narrative Scan on 05/06/2025 3:25 PM by ProviderJenna PA-C: [facility] Initial Eval documented in this encounter [facility] 05-04-2025 Note HNO ID: [id number] Author: SHANITA GREEN PA-C Service: ? Author Type: Physician Document Control Associate Type: Progress Notes Filed: 05/04/2025 09:34 Note [...] (EXEP) 05/23/2021 EF=65%, 1+TI. COLONOSCOPY N/A 03/31/2025 [facility] - Dr. Gill COLONOSCOPY FLX DX W/COLLJ SPEC WHEN PFRMD 08/19/2006 Repeat in COLONOSCOPY FLX DX W/COLLJ SPEC WHEN PFRMD 06/27/2016 Colonoscopy CRANIOPLASTY SKULL DEF/REPAIR/ BRAIN 09/14/2014 See scanned documents - status post EGD W/O [facility] SPEC VARICIES INJ N/A 03/31/2025 [facility] - Dr. Gill ESOPHAGOGASTRODUODENOSCOPY TRANSORAL DIAGNOSTIC [...] Colon Polyps Father (more content not included)... [facility] 05-04-2025 History of Presen t illness Narrative [...] (EXEP) 05/23/2021 EF=65%, 1+TI. COLONOSCOPY N/A 03/31/2025 [facility] - Dr. Gill COLONOSCOPY FLX DX W/COLLJ SPEC WHEN PFRMD 08/19/2006 Repeat in COLONOSCOPY FLX DX W/COLLJ SPEC WHEN PFRMD 06/27/2016 Colonoscopy CRANIOPLASTY SKULL DEF/REPAIR/ BRAIN 09/14/2014 See scanned documents - status post EGD W/O [facility] SPEC VARICIES INJ N/A 03/31/2025 [facility] - Friend ESOPHAGOGASTRODUODENOSCOPY TRANSORAL DIAGNOSTIC 06/27/2016 [...] on results. Shanita Green PA-C Recording using [employer] software for draft documentation of the visit was discussed with the patient/authorized product representative; all questions welcomed and answered. Patient/authorized product representative agreed to proceed [1] Social History [...] Drug use: No documented in this encounter [facility] 04-05-2025 Telephone encounter Note Noted. Shanita Green PA-C [facility] 04-05-2025 Miscellaneous Notes Noted. Shanita Green [...] Trazodone 150 mg at bedtime. Pharmacy is [facility]. Please review and adviseMaliha RN documented in this encounter [facility] 04-05-2025 Telephone encounter Note Patient calls [...] Trazodone 150 mg at bedtime. Pharmacy is [facility]. Please review and advise, Maliha Fregoso RN [facility] 03-31-2025 Note HNO ID: [id number] Author: GERALD JOHN MA Service: ? Author Type: Dried Fruit Washer Type: Progress Notes Filed: 03/31/2025 12:47 Note [...] 9:15 AM by Jenna Garcias PA-C: Colonoscopy [facility] 03-31-2025 History of Presen t illness Narrative [...] Garcias PA-C: Colonoscopy documented in this encounter [facility] 03-31-2025 Consult note [facility] 03-31-2025 Consult note [facility] 03-31-2025 Consult note Note Date/Time March 31, 2025 7:40am [facility] Medical Records Department [address] [place] [address] Pre-Anesthesia Evaluation 03/31/25 0731 MR#: [id number] Acct: [id number] Name: JENA RAMIREZ HUDSON Rep #:[id number] : 1955 70 From: Nina Pimentel CRNA PCP: Dr. 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 Female Yes 03/25/25 16:02 HX of Motion [...] 03/31/25 07:10 Respiratory Assessment Respiratory Assessment - material worker: Respiratory Tract Infection Hx - material worker Hx Respiratory Tract Infection No 03/25/25 16:02 Any additional information?: No STOP Sleep Apnea STOP Sleep Apnea - material worker: STOP Sleep Apnea - material worker Hx Hypertension Yes: PER PT, CONTROLLED ON [...] Tobacco Use History Tobacco Use History - material worker: Tobacco Use History - material worker Tobacco Use Smoking Status Former smoker 03/25/25 16:02 Hx Tobacco Use No 03/25/25 16:02 Years Smoking Packs Smoked per Day Smoking Cessation Date was Yes - quit smoking within 15 03/25/25 16:02 within the last 15 years years Hx Smoking Cessation Date 02/24/16 03/25/25 16:02 Hx Smoking Cessation No 03/25/25 16:02 Counseling Any additional information?: No Hematologic Medial History Hematologic Hx - material worker: 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 Hx of Blood Transfusion No 03/25/25 16:02 [...] information?: No /Reproduction History /Reproductive History - material worker: /Reproductive Hx- material worker Hx Now No 03/25/25 16:02 Gestational Age [...] CRNA Cosigner Signature: Date CC: ~ Signed [facility] Work Phone: 1(920) 751-395007-30-2025 History and physical note Author Robe Gill [facility] Note Date/Time March 31, 2025 7:20 am [facility] Medical Records Department [address] [place] [address] History & Physical Exam 03/31/2518 MR#: [id number] Acct: [id number] Name: JENA RAMIREZ Rep #:[id number] : 1955 70 From: Robe Gill DO PCP: Dr. Rito Camp MD Status:[facility] Location: [place] [address] HPI - General General Date of Admission: [...] been 10 years since her last colonoscopy [facility] Medical History Alcohol use Easy bruising [...] father: Status: Acute Medications: New peg 3350-sod sulf,brkd-ejd-ept 178.7-7.3-0.5 gram (Suflave) take as directed for [...] Rito Camp MD; Robe Gill DO~ Signed [facility] Work Phone: 1(468) 470-480107-30-2025 Procedure note [facility] Medical Records Department [address] [place] [address] Colonoscopy Report MR#: [id number] Acct: [id number] Name: JENA RAMIREZ Rep #:[id number] : 1955 70 From: Robe Gill DO PCP: Dr. Rito Camp MD Status:[facility] Patient Name: Jena Ramirez Procedure Date: 03/31/2025 [...] for surveillance. Procedure Code(s): --- Professional --- 87804, Colonoscopy, flexible; with biopsy, single or multiple CPT copyright 2021 [employer]. All rights reserved. The codes documented in this report are preliminary and upon sign painter review may be revised to meet current compliance requirements. Robe Gill DO 03/31/2025 9:09:10 AM This report has been signed electronically. Number of Addenda: 0 Note Initiated On: 03/31/2025 8:29 AM 03/31/25908 Date _ Robe Gill DO Cosigner Signature: Date (if indicated) CC: Dr. Rito Camp MD; Robe Gill DO ~ Date Dictated: 03/31/25828 Date Transcribed: Tug Master: RF Signed [facility]07-30-2025 Procedure note [facility] Medical Records Department [address] [place] [address] Provation Physician Letter MR#: [id number] Acct: [id number] Name: JENA RAMIREZ HUDSON Rep #:[id number] : 1955 70 From: Robe Gill DO PCP: Dr. Rito Camp MD Status:REG [facility] 03/31/2025 Rito Camp MD Re : Colonoscopy [...] DO ~ Date Dictated: 03/31/25828 Date Transcribed: Tug Master: RF Signed [facility]07-30-2025 Procedure note [facility] Medical Records Department [address] [place] [address] EGD Report MR#: [id number] Acct: [id number] Name: JENA RAMIREZ Rep #:[id number] : 1955 70 From: Robe Gill DO PCP: Dr. Rito Camp MD Status:[facility] Patient Name: Jena Ramirez Procedure Date: 03/31/2025 [...] pathology results. Procedure Code(s): --- Professional --- 30166, Esophagogastroduodenoscopy, flexible, transoral; with insertion of guide wire followed by passage of dilator(s) through esophagus over guide wire 96393, 59,51, Esophagogastroduodenoscopy, flexible, transoral; with biopsy, single or multiple CPT copyright 2021 [employer]. All rights reserved. The codes documented in this report are preliminary and upon sign painter review may be revised to meet current compliance requirements. Robe Gill DO 03/31/2025 9:07:01 AM This report has been signed electronically. Number of Addenda: 0 Note Initiated On: 03/31/2025 8:11 AM 03/31/2507 Date _ Robe Gill DO Cosigner Signature: Date (if indicated) CC: Dr. Rito Camp MD; Robe Gill DO ~ Date Dictated: 03/31/25 0811 Date Transcribed: Tug Master: RF Signed [facility]07-30-2025 Procedure note [facility] Medical Records Department [address] [place] [address] Provation Physician Letter MR#: [id number] Acct: [id number] Name: JENA RAMIREZ Rep #:[id number] : 1955 70 From: Robe Gill DO PCP: Dr. Rito Camp MD Status:[facility] 03/31/2025 Rito Camp MD Re : Upper [...] ~ Date Dictated: 03/31/25 0811 Date Transcribed: Tug Master: RF Signed [facility]07-30-2025 Consult note [facility] Medical Records Department [address] [place] [address] Anesthesia Postop Eval I 03/31/25 0900 MR#: [id number] Acct: [id number] Name: JENA RAMIREZ HUDSON Rep #:[id number] : 1955 70 From: Filipe Rahman PCP: Dr. Rito Camp MD Status:REG SDC Y Race: C Location: [place] [address] Anesthesia: Postop Eval I Current Vital Signs [...] Filipe Mello Signature: Date CC: ~ Signed [facility]07-30-2025 Consult note [facility] Medical Records Department [address] [place] [address] Pre-Anesthesia Evaluation 03/31/25730 MR#: [id number] Acct: [id number] Name: JENA RAMIREZ HUDSON Rep #:[id number] : 1955 70 From: Nina Pimentel CRNA PCP: Dr. 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 Female Yes 03/25/25 16:02 HX of Motion [...] 03/31/25 07:10 Respiratory Assessment Respiratory Assessment - material worker: Respiratory Tract Infection Hx - material worker Hx Respiratory Tract Infection No 03/25/25 16:02 Any additional information?: No STOP Sleep Apnea STOP Sleep Apnea - material worker: STOP Sleep Apnea - material worker Hx Hypertension Yes: PER PT, CONTROLLED ON [...] Tobacco Use History Tobacco Use History - material worker: Tobacco Use History - material worker Tobacco Use Smoking Status Former smoker 03/25/25 16:02 Hx Tobacco Use No 03/25/25 16:02 Years Smoking Packs Smoked per Day Smoking Cessation Date was Yes - quit smoking within 15 03/25/25 16:02 within the last 15 years years Hx Smoking Cessation Date 02/24/16 03/25/25 16:02 Hx Smoking Cessation No 03/25/25 16:02 Counseling Any additional information?: No Hematologic Medial History Hematologic Hx - material worker: Hematologic 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 Hx of Blood Transfusion No 03/25/25 16:02 [...] information?: No /Reproduction History /Reproductive History - material worker: /Reproductive Hx- material worker Hx Now No 03/25/25 16:02 Gestational Age [...] complaints, except as documented. 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 Rito Camp MD Status:[facility] Location: [place] [address] HPI - General General Date of Admission: [...] been 10 years since her last colonoscopy [facility] Medical History Alcohol use Easy bruising [...] father: Status: Acute Medications: New peg 3350-sod sulf,nqny-tzn-koy 178.7-7.3-0.5 gram (Suflave) take as directed for [...] Rito Camp MD; Robe Gill DO~ Signed [facility]07-30-2025 [facility] Medical Records Department [address] [place] [address] History Physical Exam 03/31/25 0718 MR#: [id number] Acct: [id number] Name: JENA RAMIREZ Rep #: [id number] : 1955 70 From: Robe Gill DO PCP: Dr. Rito Camp MD Status:[facility] Location: [place] [address] HPI - General General Date of Admission: [...] habits - PMH of COPD and Asthma [facility] 11/24/2024 Mild pharyngeal deficits, including... -Delayed swallow onset. -Consistent, trace laryngeal penetration of liquids w/ complete ejection. No aspiration observed. Esophageal deficits... -Retention of pudding in middle and lower esophagus, which fully cleared w/ thin liquid wash. -Small CP bar at the level of C5-C6, which did not impact bolus clearance through the UES. EGD 06/30/2018 ([facility]) - negative for Mcpherson's and H. [...] a cold forceps for histology. [facility] 2 large food boluses were located in [...] been 10 years since her last colonoscopy [facility] Medical History Alcohol use Easy bruising [...] Unknown Rx gram-22.74 gram (more content not included)...[facility] 03-26-2025 Telephone encounter Note* Telephone Encounter - Melita Le LPN - 03/26/2025 8:56 AM EDT Sent pt ms with result note since pt read message but has not contacted office. Pt is scheduled03/29/25 with Shanita unless pt reads results and cancels appointment. Melita Le LPN [facility]07-25-2025 Miscellaneous Notes* Telephone Encounter - Melita [...] panel results were available. [facility] Telephone encounter Note * Telephone Encounter - Melita Le LPN - 03/24/2025 9:11 AM EDT Left additional message for pt to contact office. Also sent msg for pt to contact Triage Nurse. Melita Le LPN [facility]07-21-2025 Telephone encounter Note* Telephone Encounter - [...] Ann Onofre March 22, 2025 1:05 PM [facility]07-21-2025 Miscellaneous Notes* Telephone Encounter - Ann [...] 22, 2025 1:05 PM documented in this encounterP[facility]07-17-2025 Telephone encounter Note * Telephone Encounter - Melita Le LPN - 03/18/2025 11:34 AM EDT Left message for pt to contact office. Melita Le LPN [facility]07-17-2025 Telephone encounter Note* Telephone Encounter - [...] before the full panel results were available. [facility]07-16-2025 Telephone encounter Note* Telephone Encounter - [...] been updated to match the prescriber directory. [facility]07-16-2025 Miscellaneous Notes* Telephone Encounter - Jacki [...] - 03/17/2025 9:00 AM EDT Benito madrid [facility] calls with prior authorization questions for [employer]. Questions Answered. Willfax results of prior authorization within 72 hours. Please Watch for response. PRIOR AUTHORIZATION Medication for Prior Authorization: [employer] Insurance Company: [employer] Patient insurance ID number: [id number] [place] Gill RN documented in this encounterP[facility]07-16-2025 Telephone encounter Note * Telephone Encounter - Jacki Mark LPN - 03/17/2025 10:27 AM EDT Covermymeds SUN[employer] chance'gavi Did request PA electronically to review. [facility]07-16-2025 Telephone encounter Note* Telephone Encounter - [place] Gill RN - 03/17/2025 9:00 AM EDT Benito from [facility] calls with prior authorization questions for [employer]. Questions Answered. Willfax results of prior authorization within 72 hours. Please Watch for response. PRIOR AUTHORIZATION Medication for Prior Authorization: [employer] Insurance Company: [employer] Patient insurance ID number: [id number] [place] Gill RN [facility]07-14-2025 NoteHNO ID: [id number] Author: SHANITA GREEN PA-C Service: ? Author Type: Physician Document Control Associate Type: Progress Notes Filed: 03/15/2025 11:07 Note [...] APPR UNI/BI Tubal lig (more content not included)...[facility]07-14-2025 History of Present illness Narrative* Shanita Green [...] - Patient to follow up with paint line supervisor Dr. Epstein for further evaluation and potential interventions. Shanita Green PA-C Recording using LiquidFrameworks software for draft documentation of the visit was discussed with the patient/authorized product representative; all questions welcomed and answered. Patient/authorized product representative agreed to proceed documented in this encounterP[facility] Hospital06-10-2025 Evaluation note* Diagnosis Onset Date Resolution [...] 9:31am Esophagitis acute April 20, 2025 9:31am [facility] Work Phone: 1(865) 194-584805-20-2025 NoteHNO ID: [id number] Author: MELITA LE LPN Service: ? Author Type: LICENSED NURSE Type: Progress Notes Filed: 01/19/2025 12:14 Note Text: Scan on 01/18/2025 9:18 AM by Provider, [facility]: Consultation - PT/OT/SpeechD[facility]05-06-2025 Telephone encounter Note* Telephone Encounter - Melita Le LPN - 01/05/2025 11:22 AM EDT Pt notified of same. Melita Le LPN [facility]05-06-2025 Miscellaneous Notes* Telephone Encounter - Melita Le LPN - 01/05/2025 11:22 AM EDT Pt notified of same. Melita Le LPN * Telephone Encounter - Shanita Green PA-C - 01/05/2025 11:16 AM EDT Xray is negative for fracture. Shanita Green PA-C documented in this encounterPike Community Hospital05-06-2025 Telephone encounter Note * Telephone Encounter - Shanita Green PA-C - 01/05/2025 11:16 AM EDT Xray is negative for fracture. Shanita Green PA-C [facility]05-06-2025 History of Present illness Narrative* James [...] PATIENT PRESENTS WITH AN IMPLANTABLE OR ATTACHED BUSINESS DEVELOPMENT AGENT: No RADIOLOGY DEPARTMENT: General X-ray: Exam(s) Completed: Lower Extremity X- Ray(s): Foot, Right PERIPHERAL IV DATA: Not applicable SIGNED BY: RT Berry(Renata) January 05, 2025 10:41 AM documented in this encounterPike Community Hospital05-06-2025 NoteHNO ID: [id number] Author: JAMES BREWER RT(R) Service: ? Author Type: Genetics Teacher Type: Progress Notes Filed: 01/05/2025 10:50 [...] PATIENT PRESENTS WITH AN IMPLANTABLE OR ATTACHED BUSINESS DEVELOPMENT AGENT: No RADIOLOGY DEPARTMENT: General X-ray: Exam(s) Completed: Lower Extremity X-Ray(s): Foot, Right PERIPHERAL IV DATA: Not applicable SIGNED BY: RT Berry(Renata) January 05, 2025 10:41 [facility]05-06-2025 NoteHNO ID: [id number] Author: SHANITA GREEN PA-C Service: ? Author Type: Physician Document Control Associate Type: Progress Notes Filed: 01/05/2025 10:47 Note [...] Undergoing annual monitoring for pulmonary nodules by ice cream machine operator. - Recent lung scan performed at the [...] Polyps Father Hypertension Fathe (more content not included)...[facility] 01-05-2025 History of Present illness Narrative* Shanita [...] Undergoing annual monitoring for pulmonary nodules by ice cream machine operator. - Recent lung scan performed at the [...] 1. Injury of right toe, initial encounter (K26.876Y) - Ordered X-ray of the right foot [...] the plan. Shanita Green PA-C Recording using LiquidFrameworks software for draft documentation of the visit was discussed with the patient/authorized product representative; all questions welcomed and answered. Patient/authorized product representative agreed to proceed documented in this encounterPike Community Hospital05-05-2025 NoteHNO ID: [id number] Author: MELITA LE LPN Service: ? Author Type: LICENSED NURSE Type: Progress Notes Filed: 01/04/2025 07:34 Note Text: Scan on 01/03/2025 12:29 AM by ProviderJenna PA-C: CT ScanD[facility]05-05-2025 History of Present illness Narrative* Melita Le LPN - 01/04/2025 7:34 AM EDT Scan on 01/03/2025 12:29 AM by Provider, MU West: CT Scan documented in this encounterPike Community Hospital05-04-2025 Radiology Diagnostic study note [facility] Imaging Services [address] [place] [id number] Lung Screening MR#: [id number] Acct: [id number] Name: JENA RAMIREZ Rep #: [id number] : 1955 F 69 From: Yoana Lopez MD PCP: Dr. Rito Camp MD Status: [facility] Study:Low Dose CT Lung Screening Date of Exam : 01/01/25 Exam# [id number] Ordering Dr: Tiffanie Dee YELLOW PAGES SPACE SALESPERSON YELLOW PAGES SPACE SALESPERSON-C PROCEDURE: LOW DOSE CT LUNG SCREENING 01/01/2025 REASON FOR EXAM: SMOKER QUIT 2010 TECHNIQUE: Low Dose CT Lung screening without contrast. Coronal and Sagittal reconstructionseries were provided. One or more dose reduction techniques were used (e.g., Automated exposure control, adjustment of the mA and/or kV according to patient size, use of iterative reconstruction technique). REFERENCE LINK: [employer] Lung-RADS RADIATION DOSE SUMMARY: CTDlvol: 2.0 mGy [...] artery calcification (CAC) is present Reading Location: [id number] CC: TRACI Dee; Dr. Rito Camp MD ~ Tug Master: Signed [facility]04-29-2025 Telephone encounter Note* Telephone Encounter - Melita [...] insurance won't cover it. Pt uses [facility] [place]. Magdy Le LPN [facility]04-29-2025 Miscellaneous Notes* Telephone Encounter - Melita [...] insurance won't cover it. Pt uses [facility]. Magdy Le LPN * Telephone Encounter - [...] that may be better. documented in this encounterPike Community Hospital04-28-2025 Telephone encounter Note * Telephone Encounter - Rito Camp MD - 12/28/2024 4:18 PM EDT Let patient know her bone study shows her bone strength has gotten worse. Her 10 year risk of a major bone fracture is 21%. We can either place her back on Fosamax once a week or have her see endo todiscuss other alternatives that may be better. [facility]04-28-2025 History of Present illness Narrative* Bashir [...] PATIENT PRESENTS WITH AN IMPLANTABLE OR ATTACHED BUSINESS DEVELOPMENT AGENT: No RADIOLOGY DEPARTMENT: Bone Density PERIPHERAL IV DATA: Not applicable SIGNED BY: RT Rivka(R) December 28, 2024 8:52 AM documented in this encounterPike Community Hospital04-28-2025 NoteHNO ID: [id number] Author: BASHIR LANDA RT(R) Service: ? Author [...] PATIENT PRESENTS WITH AN IMPLANTABLE OR ATTACHED BUSINESS DEVELOPMENT AGENT: No RADIOLOGY DEPARTMENT: Bone Density PERIPHERAL IV DATA: Not applicable SIGNED BY: RT Rivka(R) December 28, 2024 8:52 [facility]04-17-2025 Evaluation note* Diagnosis Onset Date Resolution Status Admit Date Dysphagia acute December 17 10:25am Encounter for screening colonoscopy acute December 17, 2024 10:25am Family history of colon canc er in father acute December 17, 2024 10:25am [facility] Work Phone: 1(531) 194-986704-17-2025 Evaluation note* Diagnosis Onset Date Resolution Status [...] in father acute March 31, 2025 6:50am [facility] Work Phone: 1(256) 383-568904-04-2025 Telephone encounter Note* Telephone Encounter - Mitzy Dewey LPN - 12/04/2024 10:48 AM EDT Phoned patient and she reported she was aware of results and she had referral already placed, testing scheduled and ST ordered already. She stated she cancelled her follow up with Dr Camp but will let us know if she needs anything else. Mitzy Dewey LPN [facility]04-04-2025 Miscellaneous Notes* Telephone Encounter - Mitzy [...] results. Aury Newton MA' documented in this encounterPike Community Hospital04-02-2025 Telephone encounter Note * Telephone Encounter - Charlie Dodge MD - 12/02/2024 11:27 AM EDT Barium swallow results reviewed. Would have patient follow recommendations as written. Let us know if they need speech therapy referral order. Keep f/u with Dr. Camp next week. [facility] Work Phone: 1(196) 609-508604-02-2025 Telephone encounter Note* Telephone Encounter - Aury Newton MA - 12/02/2024 11:24 AM EDT Scan on 11/30/2024 10:14 AM by Provider, External, PAErnieC: GI Review results. Aury Newton MA' [facility]04-01-2025 Telephone encounter Note* Telephone Encounter - Cami Kidd MA - 12/01/2024 3:12 PM EDT Pt notified and requested it be sent to Dr jackson office. Faxed info. Cami Kidd MA [facility]04-01-2025 Miscellaneous Notes* Telephone Encounter - Cami Kidd [...] said she had swallowing study done at [facility] on 11/24/2024. She is upset that PCP has not gotten copy of the results yet. She called [facility] med recs dept yesterday and was told being faxed as she was talking to the lady. She talking about bringing her copy to the office and have copy made for PCP. She was told needs Gastro consult, she was hoping to stay with [facility] if PCP wants to give thereferral. Please advise documented in this encounterPike Community Hospital04-01-2025 Telephone encounter Note * Telephone Encounter - Alex Brown APRN.CNP - 12/01/2024 2:48 PM EDT Please let patient know I have reviewed her swallow study and placed GI referral. [facility]04-01-2025 Telephone encounter Note* Telephone Encounter - Kasey Becker LPN - 12/01/2024 1:39 PM EDT Patient calling said she had swallowing study done at [facility] on 11/24/2024. She is upset that PCP has not gotten copy of the results yet. She called [facility] med recs dept yesterday and was told being faxed as she was talking to the lady. She talking about bringing her copy to the office and have copy made for PCP. She was told needs Gastro consult, she was hoping to stay with [facility] if PCP wants to give thereferral. Please advise [facility]03-31-2025 Telephone encounter Note* Telephone Encounter - [...] Angella Kirkland November 30, 2024 10:55 AM [facility] Work Phone: [phone] 859-789903-31-2025 Miscellaneous Notes* Telephone Encounter - Angella Stevens [...] 30, 2024 10:55 AM documented in this encounterPike Community Hospital03-25-2025 Procedure note [facility] Speech Pathology [address] [place] [address] Modified Barium Swallow Study MR#: [id number] Acct: [id number] Name: JENA RAMIREZ Rep #:[id number] : 1955 69 From: Krysta King [facility] Modified Barium Swallow Patient Information Study Date: 11/24/24 Study Time: 12:45 Direct Billable Minutes: 70 Total Minutes procedure & reportin Diagnosis: Dysphagia R13.10 Referring Physician: Rito Camp Reason for Referral: assess swallow function, assess risk for aspiration, and determine recommendations for least restrictive diet textures and compensatory strategies to facilitate safe po intake. Medical History: Patient recently seen at [facility] for outpatient swallowing evaluation 10/20/2024 [...] in swallow onset. -GERD education. When this SHORT ORDER COOK recommended liquid wash between bites, the patient reported she onlydrinks her beer before or after a meal. SHORT ORDER COOK recommended water to wash foods during the [...] Status Active ST Patient: Active Contact Information [facility] Speech Therapy:: Krysta Tatum M.A. [facility]? Speech-Language Pathologist?? [facility] [address] [place] [address]? [email or web address]?? [phone] 11/24/24 Quan Niño CCC-[facility] ORDER COOK> Date/Time Krysta Tatum M.A. [facility] Co-Signature Required for all Medicare patients Date/Time Co-Signature CC: ~ [facility]03-11-2025 NoteHNO ID: [id number] Author: MELITA LE LPN Service: ? Author Type: LICENSED NURSE Type: Progress Notes Filed: 11/10/2024 12:54 Note Text: Scan on 11/10/2024 9:40 AM by ProviderJenna PA-C: Consultation - Anesthesia/[facility]03-[facility]-2025 History of Present illness Narrative* Melita Le LPN - 11/10/2024 12:54 PM EDT Scan on 11/10/2024 9:40 AM by Jenna Garcias PA-C: Consultation - Anesthesia/Pain documented in this encounterPike [facility] Hospital2025 Telephone encounter Note * Telephone Encounter - Mary Ann Gamboa - 11/09/2024 10:23 AM EDT Physician: Naina Call from patient requesting refill. Please Call in Last OV: 08/03/24 with Bran Future OV: 12/08/24 with Naina Requested Prescriptions Pending Prescriptions Disp Refills QUEtiapine (SEROQUEL) 25 mg tablet 30 tablet 1 Sig: Take 1 tablet by mouth daily at bedtime. Pharmacy Name: [facility] Phone #: [phone] Mary Ann Gamboa [facility]2025 Miscellaneous Notes* Telephone Encounter - Mary Ann Gamboa - 11/09/2024 10:23 AM EDT Physician: Naina Call from patient requesting refill. Please Call in Last OV: 08/03/24 with Bran Future OV: 12/08/24 with Naina Requested Prescriptions Pending Prescriptions Disp Refills QUEtiapine (SEROQUEL) 25 mg tablet 30 tablet 1 Sig: Take 1 tablet by mouth daily at bedtime. Pharmacy Name: [facility] Phone #: [phone] Mary Ann Gamboa documented in this encounterPike Community Hospital03-06-2025 NoteHNO ID: [id number] Author: ?, ?, ? Service: ? Author Type: ? Type: Progress Notes Filed: 11/05/2024 14:37 Note Text: POPULATION HEALTH NAVIGATION OUTREACH Action/[facility] Support: Called pt to schedule an appt in Pain Management. Lvm for pt to call [phone] for scheduling. Any agent can assist. Reason for Outreach Care Gap/HCC or Scheduling Wellness Visits Care Gaps due: N/A Patient Contacted: Unable or unnecessary to reach patient: Left message [address] message sent Navigation Signature: Sierra Angeles November 05, 2024 2:36 [facility]03-06-2025 History of Present illness Narrative* Sierra Angeles - 11/05/2024 2:36 PM EST POPULATION HEALTH NAVIGATION OUTREACH Action/[facility] Support: Called pt to schedule an appt in Pain Management. Lvm for pt to call [phone] for scheduling. Any agent can assist. Reason for Outreach Care Gap/HCC or Scheduling Wellness Visits Care Gaps due: N/A Patient Contacted: Unable or unnecessary to reach patient: Left message [address] message sent Navigation Signature: Sierra Angeles November 05, 2024 2:36 PM documented in this encounterPike [facility] Hospital03-06-2025 NotePatient Outreach (NETNAV) DIONY RAMIREZ ([id number]) 1955 F Date Time Provider Department 11/05/24 NO PCP (HIST) NETNAV During your visit today, we recorded the following information about you: Sierra Angeles 11/05/2024 2:37 PM Signed POPULATION HEALTH NAVIGATION OUTREACH Action/[facility] Support: Called pt to schedule an appt in Pain Management. Lvm for pt to call [phone] for scheduling. Any agent can assist. Reason for Outreach Care Gap/HCC or Scheduling Wellness Visits Care Gaps due: N/A Patient Contacted: Unable or unnecessary to reach patient: Left message [email or web address] message sent Navigation Signature: Sierra Angeles November [...] [Z71.8*09/27/2022 Ectatic thoracic ao (more content not included)...[facility] 11-04-2024 Telephone encounter Note* Telephone Encounter - Rosita Melgoza RN - 11/04/2024 7:03 PM EST Office notes from 08/03/24 and 10/01/24, consult order, hip x ray from 08/03/24, demographics printed and faxed to Dr. oMntilla's office at [phone]. Called pt and notified that she should be able tocontact Dr. Montilla's office for an appt tomorrow. [facility]03-05-2025 Miscellaneous Notes* Telephone Encounter - Rosita Melgoza RN - 11/04/2024 7:03 PM EST Office notes from 08/03/24 and 10/01/24, consult order, hip x ray from 08/03/24, demographics printed and faxed to Dr. Montilla's office at [phone]. Called pt and notified that she should [...] is not helping either. documented in this encounterPike Community Hospital03-05-2025 Telephone encounter Note * Telephone Encounter - Rito Camp MD - 11/04/2024 4:13 PM EST Order placed for consult to Dr. Epstein. Please send copy of office note from 10/01/2024 and 08/03/2025 along with the hip x-ray from 08/03/2024. [facility]03-05-2025 Telephone encounter Note* Telephone Encounter - [...] Dr. Camp prescribed is not helping either. [facility]03-03-2025 Telephone encounter Note* Telephone Encounter - [...] Le LPN November 02, 2024 10:23 AM [facility]03-03-2025 Miscellaneous Notes* Telephone Encounter - Melita [...] Thank you. Rakel Newton. documented in this encounterPike Community Hospital03-03-2025 Telephone encounter Note * Telephone Encounter [...] 12/08/2024 Please advise. Thank you. Rakel Newton. [facility]02-24-2025 Telephone encounter Note* Telephone Encounter - Elana Waller PSS - 10/26/2024 4:27 PM EST CD READY FOR WEATHER ALGORITHM SCIENTIST AT [facility] RADIOLOGY Pt is aware [facility]02-24-2025 Miscellaneous Notes* Telephone Encounter - Elana Waller PSS - 10/26/2024 4:27 PM EST CD READY FOR WEATHER ALGORITHM SCIENTIST AT [facility] RADIOLOGY Pt is aware * Telephone Encounter - Truman Campos - 10/26/2024 1:20 PM EST Patient is requesting her HIP xray from 08/03/24 be placed on a disc. Thank you. documented in this encounterPike Community Hospital02-24-2025 Telephone encounter Note * Telephone Encounter - Truman Campos - 10/26/2024 1:20 PM EST Patient is requesting her HIP xray from 08/03/24 be placed on a disc. Thank you. [facility]02-21-2025 NoteHNO ID: [id number] Author: AURY NEWTON MA Service: ? Author Type: Dried Fruit Washer Type: Progress Notes Filed: 10/23/2024 14:48 Note Text: Order/Demo faxed to [facility]. Referral placed. Aury Newton [facility]02-21-2025 NoteHNO ID: [id number] Author: RITO CAMP MD Service: ? Author Type: Physician Type: Progress Notes Filed: 10/23/2024 14:13 Note Text: Order readyDiley [facility] Center02-21-2025 NoteHNO ID: [id number] Author: KASEY BECKER LPN Service: ? Author Type: LICENSED NURSE Type: Progress Notes Filed: 10/23/2024 11:00 Note Text: Patient calling said the Speech Therapist did not have the order at [facility] for her to schedule appt. So patient is asking if PCP could give the order for the Barium swallow/cookie swallow and fax it to [facility] please. Patient phone number is [phone]. Pending order, needs diagnosis. Please advisUniversity [facility]als [facility]02-21-2025 NoteHNO ID: [id number] Author: AURY NEWTON MA Service: ? Author Type: Dried Fruit Washer Type: Progress Notes Filed: 10/23/2024 09:21 Note Text: Spoke with patient and she indicated that the tech who completed the test would be sending an order. Patient has not heard from anyone one scheduling. Gave patient the scheduling number and told her if there is an issue with needing an order to let us know and we can send over. Aury Newton [facility]02-18-2025 NoteHNO ID: [id number] Author: RITO CAMP MD Service: ? Author Type: Physician Type: Progress Notes Filed: 10/20/2024 16:10 Note Text: Find out from speech therapy If I need to order the modified Barium Swallow/Cookie swallow (MBSS) or do they get it set up?[facility]02-18-2025 History of Present illness Narrative* Rito Camp MD - 10/20/2024 4:09 PM EST Find out from speech therapy If I need to order the modified Barium Swallow/Cookie swallow (MBSS) or do they get it set up? * Melita Le LPN - 10/20/2024 1:59 PM EST Scan on 10/20/2024 1:01 PM by Provider, Jenna PAErnieC: Consultation - PT/OT/Speech documented in this encounterPike Community [facility] NoteHNO ID: [id number] Author: MELITA LE LPN Service: ? Author Type: LICENSED NURSE Type: Progress Notes Filed: 10/20/2024 13:59 Note Text: Scan on 10/20/2024 1:01 PM by Provider, Jenna PA-C: Consultation - PT/OT/[facility] of Present illness Narrative* Mary Ann Oscar, PT - 10/13/2024 10:48 AM EST Program_ID:[id number] Access Code: [email or web address] URL: [email or web address] Date: 10-13-2024 Prepared By: Mary Ann Oscar [...] and function . Patient education as noted. Self-Half-Way Management: 1: encouraged taking rest before pt. body no longer even allows her to push herself. 2: discussed goal to manage low back pain rather than do nothing while symptoms do not change 3: discussed goal of determining at direction of movement that the low back responds well to at this point 4: advised carrying a wireworker supervisor purse, be sure to switch sides Skilled [...] Mary Ann Oscar PT [facility]25 NoteHNO ID: [id number] Author: MARY ANN OSCAR PT Service: ? Author Type: Physical Therapist Type: Progress Notes Filed: 10/27/2024 10:33 Note Text: 10/27/2024 [facility] PHYSICAL THERAPY DISCONTINUANCE [...] and function . Patient education as noted. Self-Half-Way Management: 1: encouraged taking rest before pt. body no longer even allows her to push herself. 2: discussed goal to manage low back pain rather than do nothing while symptoms do not change 3: discussed goal of determining at direction of movement that the low back responds well to at this point 4: advised carrying a wireworker supervisor purse, be sure to switch sides Skilled [...] Minutes: 10 Skilled Treatme (more content not included)...[facility] 10-01-2024 Instructions* Patient Instructions* Rito Camp MD [...] review all the medicines you take, even jtqe-pps-zfqoeec medicines. As you get older, the way [...] have certain medical conditions. documented in [facility]01-30-2025 History of Present illness Narrative* Rito [...] - General (Family Medicine) Suleman Gustafson as Hot Mill Worker Alex Brown APRN.LUIS FELIPE as Reflesher (Family Medicine) Shanita Green PA-C as Reflesher (Family Medicine) Dr. Epstein: Pin management Dr. [...] Lymph 1.00 - 4.00 k/uL 1.76 1.58 [place]% % 10.0 9.5 Abs [place] <0.87 k/uL 0.68 0.62 [place]% % 3.4 [...] Negative Ketones, Urine Negative Negative Negative Specific [place], Ur 1.005 - 1.030 1.005 1.015 Hemoglobin/Blood,Ur [...] a swallowing test with PHYSICAL THERAPY at [facility] 19. Advance directive discussed with patient [...] which included preparing to see the patient, cwnm-co-nfsg patient care, completing clinical documentation, performing a medically appropriate examination, counseling and educating the patient/family/caregiver and ordering medications, tests, or procedures. Rito Camp MD documented in this encounterPike [facility]01-30-2025 NoteHNO ID: [id number] Author: RITO CAMP MD Service: ? Author [...] - General (Family Medicine) Suleman Gustafson as Hot Mill Worker Alex Brown APRN.LUIS FELIPE as Reflesher (Family Medicine) Shanita Green PA-C as Reflesher (Family Medicine) Dr. Epstein: Pin management Dr. [...] lumbar spine 05/06/2014 Ectatic thoracic aorta ([facility]LY [facility]) 12/04/2022 CT done 12/2022 Elevated blood sugar 01/27/2021 Emphysema of lung ([facility]LY [facility]) 03/18/2015 Essential hypertension, benign 02/21/2015 Ex-smoker 01/27/2021 [...] future controlled med scripts Retinal detachment in [facility] (more content not included)...[facility]01-29-[facility] Telephone encounter Note* Telephone Encounter - Jack [...] Angella Kirkland September 30, 2024 3:39 PM [facility]01-29-[facility] Miscellaneous Notes* Telephone Encounter - Angella [...] 30, 2024 3:39 PM documented in this encounterPike [facility] Hospital01-28-2025 History of Present illness Narrative* Mary Ann Oscar, PT - 09/29/2024 12:26 PM EST Program_ID:[id number] Access Code: [email or web address] URL: [email or web address] Date: 09-29-2024 Prepared By: Mary Ann Oscar [...] Planned: 6 Planned Treatment Interventions: Therapeutic exercise (46109), Neuromuscular re- education (84898), Manual therapy (96762), Therapeutic activities (25224), Self- skilled nursing management (29811), Gait Training (53378) PLAN FOR NEXT VISIT: Pt. has $35 [...] Lumbar Extension: Moderate limitation Lumbar R Side Embudo: Minimal limitation Lumbar L Side Embudo: Minimal limitation Lumbar R Side-Bend: Normal Lumbar [...] Demonstration TREATMENT: PT Treatment Interventions: Therapeutic Exercise, Self-Half-Way Management Evaluation Therapeutic Exercise: 1: *Access Code: [email or web address] URL: [email or web address] Date: 09/29/2024 Prepared by: Mary Ann Hernandez [...] and function . Patient education as noted. Self-Half-Way Management: 1: discussed lumbar flexion directional preference [...] Mary Ann Oscar PT documented in this encounterPike [facility] Hospital01-28-2025 NoteHNO ID: [id number] Author: MARY ANN OSCAR PT Service: ? [...] Planned: 6 Planned Treatment Interventions: Therapeutic exercise (27551), Neuromuscular re-education (52410), Manual therapy (63128), Therapeutic activities (52846), Self-skilled nursing management (77178), Gait Training (37171) PLAN FOR NEXT VISIT: Pt. has $35 [...] (within normal limits) [place] (more content not included)...[facility]01-14-2025 Telephone encounter Note* Telephone Encounter - Kasey Becker LPN - 09/15/2024 1:00 PM EST Patient calling she had appt today in Pulmonary office with Letha Emery YELLOW PAGES SPACE SALESPERSON at Dr Suleman Gustafson office. Asking for a copy of the CR Chest report faxed to [phone]. Printed report from 12/2022 and faxed as requested. [facility]01-14-[facility]25 Miscellaneous Notes* Telephone Encounter - Kasey Becker LPN - 09/15/2024 1:00 PM EST Patient calling she had appt today in Pulmonary office with Letha Emery YELLOW PAGES SPACE SALESPERSON at Dr Suleman Gustafson office. Asking for a copy of the CR Chest report faxed to [phone]. Printed report from 12/2022 and faxed as requested. documented in this encounterPike Community Hospital01-14-2025 Evaluation note* Diagnosis Onset Date Resolution Status Admit Date Asthma-COPD overlap syndrome chronic September 15, 2024 10:58am Nicotine dependence, cigarettes, in remission chronic September 15, 2024 10:58am [facility] Work Phone: 1(459) 496-266601-14-2025 Evaluation note* Diagnosis Onset Date Resolution Status Admit Date Asthma-COPD overlap syndrome chronic September 15, 2024 10:58am Nicotine dependence, cigarettes, in remission chronic September 15, 2024 10:58am Dysphagia acute December 17 10:25am Encounter for screening colonoscopy acute December 17, 2024 10:25am Family history of colon canc er in father acute December 17, 2024 10:25am [facility] Work Phone: 1(788) 143-617001-07-2025 Telephone encounter Note* Telephone Encounter - Kasey Becker LPN - 09/08/2024 12:52 PM EST Phoned patient aware fasting lab work orders in computer for her to complete. [facility]01-07-[facility]25 Miscellaneous Notes* Telephone Encounter - Kasey [...] placed. Elizabeth Eckert LPN documented in this encounterPike Community Hospital01-07-2025 Telephone encounter Note * Telephone Encounter - Shanita Green PA-C - 09/08/2024 12:33 PM EST Labs placed [facility]01-07-2025 Telephone encounter Note* Telephone Encounter - [...] orders have been placed. Elizabeth Eckert LPN [facility]12-12-2024 NoteHNO ID: [id number] Author: CHRISTINE PARKER RN Service: ? Author [...] more often than normal? No Based on deckhand crab boat, the following disposition is advised: No symptoms [...] Christine Parker RN August 13, 2024 11:20 [facility]12-12-2024 History of Present illness Narrative* Christine Parker [...] more often than normal? No Based on deckhand crab boat, the following disposition is advised: No symptoms [...] will contact the office with any needs. Christnie Parker RN August 13, 2024 11:20 AM documented in this encounterPike Community Hospital12-12-2024 NotePatient Outreach ([facility]) DIONY RAMIREZ ([id number]) 1955 F Date Time Provider Department 08/13/24 [...] more often than normal? No Based on deckhand crab boat, the following disposition is advised: No symptoms [...] coronavirus disease (C (more content not included)... [facility]12-11-2024 NoteHNO ID: [id number] Author: CHRISTINE PARKER RN Service: ? Author Type: Registered Nurse Type: Progress Notes Filed: 08/12/2024 15:15 Note Text: [facility] Telephonic Outreach Provider Action/FYI 1st attempt Contacted for: Routine Telephonic Outreach Contact made with patient: No, left message. Christine Parker RN August 12, 2024 3:14 [facility]12-11-2024 History of Present illness Narrative* Christine Parker RN - 08/12/2024 3:07 PM EST [facility] Telephonic Outreach Provider Action/FYI 1st attempt Contacted for: Routine Telephonic Outreach Contact made with patient: No, left message. Christine Parker RN August 12, 2024 3:14 PM documented in this encounterPike Community Hospital12-11-2024 NotePatient Outreach ([facility]) DIONY RAMIREZ ([id number]) 1955 F Date Time Provider Department 08/12/24 [...] Encounter Status:Closed by CHRISTINE PARKER RN on 08/12/24[facility]12-04-[facility] Telephone encounter Note* Telephone Encounter - Shanita Green PA-C - 08/05/2024 2:33 PM EST Consult placed. [facility]12-04-2024 Miscellaneous Notes* Telephone Encounter - Shanita [...] PhysicalTherapy. Shanita Green PA-C documented in this encounterPike Community Hospital12-04-2024 Telephone encounter Note * Telephone Encounter - Aury Newton MA - 08/05/2024 1:56 PM EST Patient notified and voiced understanding. She is will to try a few visits to see. Please place consult and send to scheduling. Aury Newton MA [facility]12-04-2024 Telephone encounter Note* Telephone Encounter - Shanita Green PA-C - 08/05/2024 11:57 AM EST Let patient know that her xray shows arthritic changes. No acute findings. Would recommend PhysicalTherapy. Shanita Green PA-C [facility]12-02-2024 History of Present illness Narrative* James [...] PATIENT PRESENTS WITH AN IMPLANTABLE OR ATTACHED BUSINESS DEVELOPMENT AGENT: No RADIOLOGY DEPARTMENT: General X-ray: Exam(s) Completed: Pelvis X-Ray: Pelvis with Hip Left PERIPHERAL IV DATA: Not applicable SIGNED BY: RT Berry(Renata) August 03, 2024 10:11 AM documented in this encounterPike Community Hospital12-02-2024 NoteHNO ID: [id number] Author: JAMES BREWER RT(R) Service: ? Author Type: Genetics Teacher Type: Progress Notes Filed: 08/03/2024 10:21 [...] PATIENT PRESENTS WITH AN IMPLANTABLE OR ATTACHED BUSINESS DEVELOPMENT AGENT: No RADIOLOGY DEPARTMENT: General X-ray: Exam(s) Completed: Pelvis X-Ray: Pelvis with Hip Left PERIPHERAL IV DATA: Not applicable SIGNED BY: RT Berry(Renata) August 03, 2024 10:11 [facility]12-02-2024 Instructions* Patient Instructions* Alex Brown APRN.COMPOUNDING AND FINISHING SUPERVISOR - 08/03/2024 9:31 AM EST Magnesium glycinate-200mg at night documented in this encounterPike Community Hospital12-02-2024 NoteHNO ID: [id number] Author: ALEX BROWN APRN.LUIS FELIPE Service: ? [...] mcg/actuation inhaler BIOTIN OR (more content not included)...[facility]12-02-20[facility] History of Present illness Narrative* Alex Brown, COLD STRIP FEEDER.COMPOUNDING AND FINISHING SUPERVISOR - 08/03/2024 9:21 AM EST Chief Complaint [...] HIP GENERAL 3V PELV/AP/LAT LEFT Alex Brown APRN.COMPOUNDING AND FINISHING SUPERVISOR documented in this encounterPike Community Hospital11-29-2024 History of Present illness Narrative* Bashir [...] PATIENT PRESENTS WITH AN IMPLANTABLE OR ATTACHED BUSINESS DEVELOPMENT AGENT: No RADIOLOGY DEPARTMENT: General X-ray: Exam(s) Completed: Chest X-Ray PERIPHERAL IV DATA: Not applicable SIGNED BY: CLAUDIA Tineo) July 31, 2024 11:03 AM documented in this encounterPike Community Hospital11-29-2024 NoteHNO ID: [id number] Author: BASHIR LANDA RT(R) Service: ? Author [...] PATIENT PRESENTS WITH AN IMPLANTABLE OR ATTACHED BUSINESS DEVELOPMENT AGENT: No RADIOLOGY DEPARTMENT: General X-ray: Exam(s) Completed: Chest X-Ray PERIPHERAL IV DATA: Not applicable SIGNED BY: Bashir Landa, RT(R) July 31, 2024 11:03 [facility]11-29-2024 NoteHNO ID: [id number] Author: SHANNA NEWTON APRN.COMPOUNDING AND FINISHING SUPERVISOR Service: ? Author Type: Nurse Practitioner Type: [...] lumbar spine 05/06/2014 Ectatic thoracic aorta ([facility]) 12/04/2022 CT done 12/2022 Elevated blood sugar 01/27/2021 Emphysema of lung ([facility]) 03/18/2015 Essential hypertension, benign 02/21/2015 Ex-smoker 01/27/2021 [...] mcg/actuation inhaler BIOTIN OR (more content not included)...[facility]11-29-20[facility] History of Present illness Narrative* Shanna Newton APRN.[facility] - 07/31/2024 10:56 AM EST CC: [...] for pneumonia or aspiration. Please clinically correlate. Tug Master: LEONARDO Transcribe Date/Time: Jul 31 2024 11:30A [...] Patient agreeable to treatment plan. Shanna Newton APRN.COMPOUNDING AND FINISHING SUPERVISOR documented in this encounterPike Community Hospital11-20-2024 NoteHNO ID: [id number] Author: MELITA LE LPN Service: ? Author Type: LICENSED NURSE Type: Progress Notes Filed: 07/22/2024 08:12 Note Text: Scan on 07/21/2024 4:53 PM by Jenna Garcias PA-C: [facility] - [facility]11-20-2024 History of Present illness Narrative* Melita Le LPN - 07/22/2024 8:11 AM EST Scan on 07/21/2024 4:53 PM by Jenna Garcias PA-C: Consultation - Pulmonary documented in this encounterPike Community Hospital11-14-2024 NoteHNO ID: [id number] Author: CHRISTINE PARKER RN Service: ? Author [...] more often than normal? No Based on deckhand crab boat, the following disposition is advised: No symptoms or symptoms present, not severe. Routed to: No Action Needed PALOMA Education Provided this Outreach: No Pt reports she is doing ok and she is not having any new or worsening cdm concerns at this time. She will contact the office with any needs. Christine Parker RN July 16, 2024 3:26 [facility]11-14-2024 History of Present illness Narrative* Christine [...] more often than normal? No Based on deckhand crab boat, the following disposition is advised: No symptoms or symptoms present, not severe. Routed to: No Action Needed PALOMA Education Provided this Outreach: No Pt reports she is doing ok and she is not having any new or worsening cdm concerns at this time. She will contact the office with any needs. Christine Parker RN July 16, 2024 3:26 PM documented in this encounterPike Community Hospital11-14-2024 NotePatient Outreach ([facility]) DIONY RAMIRZE ([id number]) 1955 F Date Time Provider Department 07/16/24 [facility] your visit today, we recorded [...] more often than normal? 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 Patient should continue with annual screenings. documented in this encounterPike Community Hospital10-31-2024 Telephone encounter Note * Telephone Encounter - Alex Brown APRN.CNP - 07/02/2024 9:26 AM EDT Please let patient know her mammogram is negative. Patient should continue with annual screenings. [facility]10-30-[facility] History of Present illness Narrative* Destini [...] PATIENT PRESENTS WITH AN IMPLANTABLE OR ATTACHED BUSINESS DEVELOPMENT AGENT: No RADIOLOGY DEPARTMENT: Mammography PERIPHERAL IV DATA: Not applicable SIGNED BY: Destini Chavarria [employer] Uriah July 01, 2024 11:20 AM documented in this encounterPike Community Hospital10-17-2024 History of Present illness Narrative* Christine Parker RN - 06/18/2024 9:36 AM EDT [facility] Telephonic Outreach Provider Action/FYI 2nd attempt Contacted for: Routine Telephonic Outreach Contact made with patient: No, left message. Christine Parker RN June 18, 2024 9:51 AM documented in this encounterPike Community Hospital10-16-2024 History of Present illness Narrative* Christine Parker RN - 06/17/2024 2:12 PM EDT [facility] Telephonic Outreach Provider Action/FYI 1st attempt Contacted for: Routine Telephonic Outreach Contact made with patient: No, left message. Christine Parker RN June 17, 2024 2:18 PM documented in this encounterPike Community Hospital10-09-2024 Telephone encounter Note * Telephone Encounter - Neyda Mccartney MA - 06/10/2024 9:47 AM EDT Patient notified. Neyda Mccartney MA\ [facility]10-09-2024 Miscellaneous Notes* Telephone Encounter - Neyda [...] medication. Please advise patient. documented in this encounterPike Community Hospital10-09-2024 Telephone encounter Note * Telephone Encounter - Shanna Newton APRN.LUIS FELIPE - 06/10/2024 9:37 AM EDT Let patient know that I called in a cough syrup for her. I apologize that it was not called in yesterday. [facility]10-09-2024 Telephone encounter Note* Telephone Encounter - [...] and takes BP medication. Please advise patient. [facility]10-06-[facility] History of Present illness Narrative* Shanna Newton APRN.COMPOUNDING AND FINISHING SUPERVISOR - 06/07/2024 11:20 AM EDT CC: Patient [...] Shanna Newton APRN.LUIS FELIPE documented in this encounterPike Community Hospital10-04-2024 Telephone encounter Note * Telephone Encounter - Angelina Paul LPN - 06/05/2024 1:12 PM EDT Pt Is currently with her PCP for urine issue. Angelina Paul LPN [facility]10-04-2024 Miscellaneous Notes* Telephone Encounter - Angelina [...] OV on Saturday. Please advise patient at [phone]. Thank you. documented in this encounterPike Community Hospital10-04-2024 History of Present illness Narrative* Rito [...] blood sugar 01/27/2021 Emphysema of lung ([facility]) 03/18/2015 Essential hypertension, benign 02/21/2015 Ex-smoker 01/27/2021 [...] improving. Rito Camp MD documented in this encounterPike Community Hospital10-04-2024 Telephone encounter Note * Telephone Encounter - Shanna Newton APRN.CNP - 06/05/2024 11:59 AM EDT Call patient let her know that she only had 10-50,000 of mixed microbiota. This is not a significant bacteria for urine culture. Patient should either follow-up with primary care or be retested for another urine. [facility] Work Phone: 1(910) 728-813210-04-2024 Telephone encounter Note* Telephone Encounter - Joana Au RN - 06/05/2024 11:48 AM EDT Patient requesting Express [facility] to advise on her recent urine culture results, when able. Reports her urinary sx's remain the same as OV on Saturday. Please advise patient at [phone]. Thank you. [facility]10-02-20[facility] History of Present illness Narrative* Mary Ann Dukes APRN.CNP - 06/03/2024 10:17 AM EDT This note was created using RiGHT BRAiN MEDiAriter. Subjective Diony Ramirez is a 69 year [...] history is provided by the patient. No front office administrator was used. UTI This is a new [...] with plan Tyra Henry Student TEACHING PROVIDER (Physician/PA/COLD STRIP FEEDER) NOTE OF PERSONAL INVOLVEMENT IN CARE: I have personally seen and examined the patient and performed the medical decision-making components. I have reviewed the Advanced Practice Registered Nurse (COLD STRIP FEEDER) Student's documentation and verified the findings in the note as written. Any additions or changes are noted in bold/italics. Signature: Mary Ann Dukes Date: 06/03/2024 Time: 11:06 AM documented in this encounterPike Community Hospital09-05-2024 History of Present illness Narrative* Christine [...] more often than normal? No Based on deckhand crab boat, the following disposition is advised: No symptoms [...] 07, 2024 9:47 AM documented in this encounterPike Community Hospital09-04-2024 History of Present illness Narrative* Christine Parker RN - 05/06/2024 11:48 AM EDT [facility] Telephonic Outreach Provider Action/FYI 1st attempt Contacted for: Routine Telephonic Outreach Contact made with patient: No, left message. Christine Parker RN May 06, 2024 11:50 AM documented in this encounterPike Community Hospital08-28-2024 Telephone encounter Note * Telephone Encounter - Fannie Centeno LPN - 04/29/2024 11:17 AM EDT Spoke with pt and information listed below given. Pt verbalizes understanding. Fannie Centeno LPN [facility]08-28-2024 Miscellaneous Notes* Telephone Encounter - Fannie Centeno LPN - 04/29/2024 11:17 AM EDT Spoke with pt and information listed below given. Pt verbalizes understanding. Fannie Centeno LPN * Telephone Encounter - Aury Newton MA - 04/27/2024 1:39 PM EDT Left message for patient to contact office. Aury Newton MA * Telephone Encounter - Alex Brown APRN.COMPOUNDING AND FINISHING SUPERVISOR - 04/27/2024 1:22 PM EDT Please let [...] is negative for fracture. documented in this encounterPike Community Hospital08-26-2024 Telephone encounter Note * Telephone Encounter [...] Newton MA April 27, 2024 2:13 PM [facility]08-26-[facility] Miscellaneous Notes* Telephone Encounter - Aury [...] 27, 2024 2:05 PM documented in this encounterPike Community Hospital08-26-2024 Telephone encounter Note * Telephone Encounter [...] Angella Kirkland April 27, 2024 2:05 PM [facility] Work Phone: [phone] Telephone encounter Note* Telephone Encounter - Aury Newton MA - 04/27/2024 1:39 PM EDT Left message for patient to contact office. Aury Newton MA [facility]08-26-2024 Telephone encounter Note* Telephone Encounter - Alex Brown APRN.CNP - 04/27/2024 1:22 PM EDT Please let patient know her MRI does not show any rotator cuff injury but does show tendinosis. I have ordered pT. [facility]08-23-20[facility] History of Present illness Narrative* Angella [...] PATIENT PRESENTS WITH AN IMPLANTABLE OR ATTACHED BUSINESS DEVELOPMENT AGENT: No RADIOLOGY DEPARTMENT: MR; Exam(s) Completed: Upper MSK: Shoulder, left PERIPHERAL IV DATA: Not applicable SIGNED BY: ZARI Batista April 24, 2024 9:39 AM documented in this encounterPike Community Hospital08-19-2024 Telephone encounter Note * Telephone Encounter [...] agreeable to call back if condition worsens. [facility]08-19-[facility] Miscellaneous Notes* Telephone Encounter - Good [...] back if condition worsens. documented in this encounterPike Community Hospital08-13-2024 Telephone encounter Note * Telephone Encounter - Cami Kidd MA - 04/14/2024 11:37 AM EDT Pt notified and verbalized understanding Cami Kidd MA [facility]08-13-2024 Telephone encounter Note* Telephone Encounter - Alex Brown APRN.CNP - 04/14/2024 11:24 AM EDT Please let patient know their xray is negative for fracture. [facility]08-13-[facility] History of Present illness Narrative* Myriam [...] PATIENT PRESENTS WITH AN IMPLANTABLE OR ATTACHED BUSINESS DEVELOPMENT AGENT: No RADIOLOGY DEPARTMENT: General X-ray: Exam(s) Completed: Chest X-Ray PERIPHERAL IV DATA: Not applicable SIGNED BY: RT Liz(R) April 14, 2024 10:38 AM documented in this encounterPike Community Hospital08-13-2024 Instructions* Patient Instructions* Alex Brown APRN.CNP - 04/14/2024 10:01 AM EDT Take 600 mg Ibuprofen every 8 hours as needed and Tylenol 1000 mg every 8 hours as needed, alternating every 4 hours. Continue to ice area 20 minutes on every hour as needed. documented in [facility] encounterP[facility] History of Present illness Narrative* Alex [...] - XR CHEST 2V FRONTAL/LA Alex Brown APRN.COMPOUNDING AND FINISHING SUPERVISOR documented in this encounterPike [facility]08-06-[facility] History of Present illness Narrative* Christine [...] more often than normal? No Based on deckhand crab boat, the following disposition is advised: No symptoms [...] 07, 2024 10:09 AM documented in this encounterPike [facility]08-05-[facility]24 History of Present illness Narrative* Christine Parker RN - 04/06/2024 3:13 PM EDT [facility] Telephonic Outreach Provider Action/FYI 1st attempt Contacted for: Routine Telephonic Outreach Contact made with patient: No, left message. Christine Parker RN April 06, 2024 3:28 PM documented in this encounterPike [facility]07-25-[facility]24 History of Present illness Narrative* Alex [...] PROCEDURE) - CONSULT TO ORTHOPAEDICS Alex Brown APRN.COMPOUNDING AND FINISHING SUPERVISOR documented in this encounterPike [facility]07-17-[facility]24 History of Present illness Narrative* Myriam [...] PATIENT PRESENTS WITH AN IMPLANTABLE OR ATTACHED BUSINESS DEVELOPMENT AGENT: No RADIOLOGY DEPARTMENT: General X-ray: Exam(s) Completed: Upper Extremity X- Ray(s): Shoulder, AP / TRUE AP / AXILLARY left and Clavicle, left PERIPHERAL IV DATA: Not applicable SIGNED BY: RT Liz(R) March 18, 2024 10:58 AM documented in this encounterPike [facility] Hospital07-17-2024 History of Present illness Narrative* RyanlogSweetie garcia APRN.COMPOUNDING AND FINISHING SUPERVISOR - 03/18/2024 10:43 AM EDT 03/18/2024 Patient [...] blood sugar 01/27/2021 Emphysema of lung (FORM[facility]LY [facility]) 03/18/2015 Essential hypertension, benign 02/21/2015 Ex-smoker 01/27/2021 [...] OR MORE AP/TRUE AP/OTHER LEFT Sweetie Romeo APRN.COMPOUNDING AND FINISHING SUPERVISOR Prescription instructions reviewed with patient as applicable. [...] Level: 3 - Low documented in this encounterP[facility]07-15-[facility]24 Telephone encounter Note * Telephone Encounter [...] Ruth Kirkland March 16, 2024 8:23 AM [facility] Miscellaneous Notes* Telephone Encounter - Ruth [...] 16, 2024 8:23 AM documented in this encounterPike [facility]07-10-2024 History of Present illness Narrative* Ashleigh Johnson MA - 03/11/2024 3:44 PM EDT POPULATION HEALTH NAVIGATION OUTREACH Action/FYI CDM PCP appt for bruising on the Left wrist Left VM; Rift[employer]io[employer] message sent Postponed 2 days Reason for [...] more often than normal? No Based on deckhand crab boat, the following disposition is advised: No symptoms [...] for years and she has seen a Book Or Script Editor for it who told her it was [...] 11, 2024 3:26 PM documented in this encounterPike [facility] Hospital06-12-2024 History of Present illness Narrative* Christine Parker RN - 02/12/2024 12:06 PM EDT [facility] Telephonic Outreach Provider Action/FYI Contacted for: Routine [...] more often than normal? No Based on deckhand crab boat, the following disposition is advised: No symptoms or symptoms present, not severe. Routed to: No Action Needed PALOMA Education Provided this Outreach: No Pt reports she is doing ok and she is not having any new or worsening cdm concerns at this time. She will contact the office with any needs. Christine Parker RN February 12, 2024 12:06 PM documented in this encounterPike [facility] Hospital05-15-2024 History of Present illness Narrative* Christine Parker RN - 01/15/2024 9:03 AM EDT [facility] Telephonic Outreach Provider Action/FYI Contacted for: Routine [...] more often than normal? No Based on deckhand crab boat, the following disposition is advised: No symptoms [...] 15, 2024 9:04 AM documented in this encounterPike [facility] Hospital05-14-2024 History of Present illness Narrative* Christine Parker RN - 01/14/2024 12:41 PM EDT [facility] Telephonic Outreach Provider Action/FYI 1st attempt Contacted for: Routine Telephonic Outreach Contact made with patient: No, left message. Christine Parker RN January 14, 2024 12:41 PM documented in this encounterPike [facility]05-02-2024 History of Present illness Narrative* Kami Salas MA - 01/02/2024 10:46 AM EDT View External Imaging - CT Scan [ID [id number]] documented in this encounterPike [facility] Hospital05-01-2024 Telephone encounter Note * Telephone Encounter - Kasey Becker LPN - 01/01/2024 9:13 AM EDT Patient returned call and went over results, notes from Dr Camp with understanding. [facility] Miscellaneous Notes* Telephone Encounter - Kasey [...] of heart was ok documented in this encounterPike [facility] Hospital05-01-2024 Telephone encounter Note * Telephone Encounter - Aury Newton MA - 01/01/2024 8:23 AM EDT Left message for patient to contact office. Aury Newton MA [facility]04-30[facility] Telephone encounter Note* Telephone Encounter - Rito Camp MD - 12/31/2023 8:50 PM EDT Let patient know US of heart was ok [facility]04-[facility] Tele[facility] encounter Note* Telephone Encounter - Good Silva RN - 12/23/2023 2:48 PM EDT Patient phoned looking for CXR results. States she is not good at her MC. Given provider's message below with verbalized understanding. [facility] Miscellaneous Notes* Telephone Encounter - Good Silva RN - 12/23/2023 2:48 PM EDT Patient phoned looking for CXR results. States she is not good at her MC. Given provider's message below with verbalized understanding. documented in this encounterPike [facility] Hospital04-22-2024 History of Present illness Narrative* Fina [...] PATIENT PRESENTS WITH AN IMPLANTABLE OR ATTACHED BUSINESS DEVELOPMENT AGENT: No RADIOLOGY DEPARTMENT: General X-ray: Exam(s) Completed: Chest X-Ray PERIPHERAL IV DATA: Not applicable SIGNED BY: RT Vega(R) December 23, 2023 10:49 AM documented in this encounterPike [facility] Hospital04-22-2024 History of Present illness Narrative* Mary [...] history is provided by the patient. No front office administrator was used. Cough This is a new [...] blood sugar 01/27/2021 Emphysema of lung ([facility]) 03/18/2015 Essential hypertension, benign 02/21/2015 Ex-smoker 01/27/2021 [...] with PCP for same Mary Ann Dukes APRN.COMPOUNDING AND FINISHING SUPERVISOR documented in [place] encounterChristopher [place] [address]-21-2024 History of Present illness Narrative* Teresa Handley PA-C - 12/22/2023 10:44 AM EDT This note was created using RiGHT BRAiN MEDiAriter. Subjective Diony Ramirez is a 68 year [...] blood sugar 01/27/2021 Emphysema of lung ([facility]) 03/18/2015 Essential hypertension, benign 02/21/2015 Ex-smoker 01/27/2021 [...] agreeable.. Teresa Handley PA-C documented in this encounterPike [facility] Hospital04-16-2024 History of Present illness Narrative* Christine Parker RN - 12/17/2023 12:11 PM EDT [facility] Telephonic Outreach Provider Action/FYI 2nd attempt Contacted for: Routine Telephonic Outreach Contact made with patient: No, left message. Christine Parker RN December 17, 2023 12:12 PM documented in this encounterPike [facility] Hospital04-15-2024 History of Present illness Narrative* Christine Parker RN - 12/16/2023 3:04 PM EDT [facility] Telephonic Outreach Provider Action/FYI 1st attempt Contacted for: Routine Telephonic Outreach Contact made with patient: No, left message. Christine Parker RN December 16, 2023 3:04 PM documented in this encounterPike [facility] Hospital03-18-2024 History of Present illness Narrative* Christine [...] more often than normal? No Based on deckhand crab boat, the following disposition is advised: No symptoms or symptoms present, not severe. Routed to: No Action Needed PALOMA Education Provided this Outreach: No Pt reports she is doing fine and she is not having any new or worsening cdm concerns at this time. She will contact the office with any needs. Christine Parker RN November 18, 2023 3:29 PM documented in this encounterPike [facility] Hospital03-08-2024 Miscellaneous Notes* Telephone Encounter - Rito [...] testing. [place] Gill RN documented in this encounterPike Community Hospital02-20-2024 History of Present illness Narrative* Christine Parker RN - 10/22/2023 9:42 AM EST [facility] Telephonic Outreach Provider Action/FYI 2nd attempt Contacted for: Routine Telephonic Outreach Contact made with patient: No, left message. Christine Parker RN October 22, 2023 9:42 AM documented in this encounterPike [facility] Hospital02-19-2024 History of Present illness Narrative* Christine Parker RN - 10/21/2023 2:58 PM EST [facility] Telephonic Outreach Provider Action/FYI 1st attempt Contacted for: Routine Telephonic Outreach Contact made with patient: No, left message. Christine Parker RN October 21, 2023 2:58 PM documented in this encounterPike Community Hospital02-14-2024 Miscellaneous Notes* Telephone Encounter - Melita Le LPN - 10/16/2023 11:47 AM EST Patient notified of results and provider's instructions. Patient verbalizes understanding. Melita Le LPN * Telephone Encounter - Shanita Green PA-C - 10/16/2023 11:26 AM EST Let patient know that her shoulder xray is okay. Neck xray shows mild to moderate arthritic changes. Continue as we discussed for now. Shanita Grene PA-C documented in this encounterPike Community Hospital02-13-2024 Miscellaneous Notes* Telephone Encounter - Elana Waller PSS - 10/15/2023 3:52 PM EST CD READY FOR WEATHER ALGORITHM SCIENTIST AT [facility] RADIOLOGY for pt * Telephone Encounter - Ramona Lundy - 10/15/2023 11:42 AM EST Patient is requesting copy of x-ray report and disc from 10/15/23. Please notify patient when ready for lemon picker. Instructed to retrieve items at [place]. documented in this encounterPike Community Hospital02-13-2024 History of Present illness Narrative* James [...] PATIENT PRESENTS WITH AN IMPLANTABLE OR ATTACHED BUSINESS DEVELOPMENT AGENT: No RADIOLOGY DEPARTMENT: General X-ray: Exam(s) Completed: Spine X-Ray(s): Cervical AP / LAT / OBL Upper Extremity X-Ray(s): Shoulder, AP / TRUE AP right Scapular Y view PERIPHERAL IV DATA: Not applicable SIGNED BY: RT Berry(R) October 15, 2023 9:36 AM documented in this encounterPike Community Hospital02-13-2024 History of Present illness Narrative* Shanita [...] TABLET Shanita Green PA-C documented in this encounterPike Community Hospital02-05-2024 Miscellaneous Notes* Telephone Encounter - Louisa Cindy Kirkland 10/07/2023 12:10 PM EST Patient [...] INSTRUCTIONS: Patient is changing back to [facility]. Please send today. She requested 90 days with refills. Patient aware RX will be sent to pharmacy. No need to notify patient. Cindy Santizo [facility] documented in this encounterPike Community Hospital12-21-2023 History of Present illness Narrative* Christine [...] more often than normal? No Based on deckhand crab boat, the following disposition is advised: No symptoms [...] 22, 2023 10:39 AM documented in this encounterPike Community Hospital12-14-2023 History of Present illness Narrative* Myriam Bates RT(Renata) - 08/15/2023 12:10 PM EST Radiology Service Progress Note PATIENT NAME: Doiny Ramirez DATE OF SERVICE: August 15, 2023 [...] 15, 2023 12:10 PM documented in this encounterPike Community Hospital12-05-2023 History of Present illness Narrative* Evelio [...] 1112 Jeancarlos Fraser PT documented in this encounterPike Community Hospital11-30-2023 History of Present illness Narrative* Jeancarlos [...] Fraser PT - 07/29/2023 11:19 AM EST Program_ID:[id number] Access Code: [email or web address] URL: [email or web address]/ Date: 07-29-2023 Prepared By: Jeancarlos Fraser Program [...] Fraser PT - 07/29/2023 11:18 AM EST Program_ID:[id number] Access Code: [email or web address] URL: [email or web address] hospitalAg[facility]/ Date: 07-29-2023 Prepared By: Jeancarlos Fraser Program [...] Education - Lumbar Stenosis documented in this encounterPike Community Hospital11-20-2023 History of Present illness Narrative* Kerrie [...] 22, 2023 11:45 AM documented in this encounterPike Community Hospital11-13-2023 History of Present illness Narrative* Jeancarlos [...] Planned: 8 Planned Treatment Interventions: Therapeutic exercise (97582), Neuromuscular re- education (31993), Manual therapy (44024), Therapeutic activities (69087), Self- skilled nursing management (70305), Patient/Family/Caregiver Education, Body Mechanics Training PLAN FOR [...] *Hooklying piriformis stretch 3x30 sec/side 4: Issued [employer] handout on spine stenosis Skilled Intervention: Patient [...] Fraser PT - 07/15/2023 9:46 AM EST Program_ID:[id number] Access Code: [email or web address] URL: [email or web address] hospitalAg[facility]/ Date: 07-15-2023 Prepared By: Jeancarlos Fraser Program [...] Fraser PT - 07/15/2023 9:45 AM EST Program_ID:[id number] Access Code: [email or web address] URL: [email or web address] Date: 07-15-2023 Prepared By: Jeancarlos Fraser Program [...] - 3 - 3 documented in this encounterPike Community Hospital10-26-2023 Miscellaneous Notes* Telephone Encounter - Rito [...] 06/27/2023 2:41 PM EDT Pharmacy verified in [facility] Patient has been identified by name and [...] Please advise. Angella Kirkland documented in this encounterPike Community Hospital10-20-2023 History of Present illness Narrative* Kerrie [...] more often than normal? No Based on deckhand crab boat, the following disposition is advised: No symptoms or symptoms present, not severe. Routed to: No Action Needed PALOMA Education Provided this Outreach: No Kerrie Damian RN June 21, 2023 12:29 PM documented in this encounterPike Community Hospital10-20-2023 Miscellaneous Notes* Telephone Encounter - Melita Le LPN - 06/21/2023 9:31 AM EDT Pt notified of same. Melita Le LPN * Telephone Encounter - Alex Brown APRN.CNP - 06/20/2023 5:16 PM EDT Please let patient know her WBC count has returned to normal. documented in this encounterPike Community Hospital10-19-2023 Miscellaneous Notes* Telephone Encounter - Marli Zhang RN - 06/20/2023 3:44 PM EDT Pt called and is notified of providers results. Pt voices understanding. Marli Zhang RN * Telephone Encounter - Rito Camp MD - 06/20/2023 3:35 PM EDT Let patient know the repeat CBC was ok. documented in this encounterPike Community Hospital10-12-2023 History of Present illness Narrative* Toi Falcon MD - 06/13/2023 12:30 PM EDT HISTORY AND PHYSICAL Diony Alcantar Ashley 1955 REFERRING PHYSICIAN: Alex Brown APRN.* CHIEF COMPLAINT: Consult (S/p small bowel obstruction) HPI: The patient is a 68 year old female with a complaint of resolution of partial small bowel obstruction. Patient was admitted to [facility] on 05/31/2023. She has been having waxingand [...] entered by the nurse and reviewed by nv Nursing Notes: Bree Emmanuel LPN 06/11/2023 9:30 [...] Toi Falcon III, MD documented in this encounterPike Community Hospital10-10-2023 Miscellaneous Notes* Telephone Encounter - [place] [...] axilla? Shanita Green PA-C documented in this encounterPike Community Hospital10-10-2023 Nurse Note* Bree Emmanuel LPN - [...] 2015 Bree Emmanuel LPN documented in this encounterPike Community Hospital10-07-2023 History of Present illness Narrative* Rito [...] lumbar spine 05/06/2014 Ectatic thoracic aorta ([facility]) 12/04/2022 CT done 12/2022 Elevated blood sugar 01/27/2021 Emphysema of lung ([facility]) 03/18/2015 Essential hypertension, benign 02/21/2015 Ex-smoker 01/27/2021 [...] improving Rito Camp MD documented in this encounterPike Community Hospital10-05-2023 Miscellaneous Notes* Telephone Encounter - Kami [...] advise, [place] Gill RN documented in this encounterPike Community Hospital10-03-2023 History of Present illness Narrative* Alex Brown APRN.CNP - 06/04/2023 10:58 AM EDT Chief Complaint Patient presents with: Hospital F/U HPI Diony Ramirez is a 68 year old female who presents here today for Above Complaints.. Patient presents for hospital follow up. Patient was hospitalized with small bowel obstruction at [facility]. Patient was seen by surgery while [...] lumbar spine 05/06/2014 Ectatic thoracic aorta ([facility]) 12/04/2022 CT done 12/2022 Elevated blood sugar 01/27/2021 Emphysema of lung ([facility]) 03/18/2015 Essential hypertension, benign 02/21/2015 Ex-smoker 01/27/2021 [...] - CONSULT TO GENERAL SURGERY Alex Brown APRN.COMPOUNDING AND FINISHING SUPERVISOR documented in this encounterPike Community Hospital10-02-2023 Miscellaneous Notes* Telephone Encounter - Albania Gill RN - 06/03/2023 11:20 AM EDT TRANSITION CARE MANAGEMENT (TCM) INITIAL CONTACT Dried Fruit Washer Outreach Provider Action/FYI: Patient calls and wanted provider to know that she was admitted to [facility] on Saturday night with small bowel [...] flowsheet data found. SUMMARY: -Pt discharged from [facility] on 06/02/2023. -Admitted for: Small Bowel [...] recent hospitalization: Care Everywhere documented in this encounterPike Community Hospital10-01-2023 Progress note Author Jazz Collins [facility] June 02, 2023 10:33am Note Date/Time June 02, 2023 8: 58am [facility] Medical Records Department [address] [place] [address] Progress Note - Surgery 06/02/23 0857 MR#: [id number] Acct: [id number] Name: JENA RAMIREZ Rep #:[id number] : 1955 68 From: Jazz Collins MD PCP: Dr. Rito Camp MD Status:ADM IN [facility] Subjective Subjective + flatus, denies abd pain, [...] 06/01/23 11:54 AG (Rec: 06/01/23 11:54 AG [id number]) Nutrition Malnutrition Evidence of Malnutrition Exists Yes [...] 74.5 H, Lymph % (Auto) 12.6 L, [place] % (Auto) 10.5 H, Eos % (Auto) [...] 7:57 EDT Reading Location ID and State: [address] [place] [address] Tel , Service support , Physical Exam [...] agreeable w plan. Jazz Collins M.D. Pager: [phone] [facility] [address] [place] [address], [facility], [address] [place] [address] Office: [phone] Charges/Coding Visit Charges Inpatient E&M: 80615 Subs Hosp L2 06/02/23 1033 <Electronically signed by Jazz Collins MD> Cosigner Signature (if applicable): CC: ~ Signed [facility] Work Phone: 1(712) 526-933810-01-2023 Progress note Author Mick Pelletier [facility] June 02, 2023 9:03am Note Date/Time June 02, 2023 9: 03am [facility] Medical Records Department [address] [place] [address] Progress Note - Hospitalist 06/02/23 0859 MR#: [id number] Acct: [id number] Name: JENA RAMIREZ Rep #:[id number] : 1955 68 From: Mick puckett MD PCP: Dr. Rito Camp MD Status:ADM IN Location: [facility] [id number] Subjective Subjective Still some abdominal pain, still [...] Document 06/01/23 11:54 AG (Rec: 06/01/23 11:54 [id number]) Nutrition Malnutrition Evidence of Malnutrition Exists Yes [...] 74.5 H, Lymph % (Auto) 12.6 L, [place] % (Auto) 10.5 H, Eos % (Auto) [...] DVT: SCDs Charges/Coding Visit Charges Inpatient E&M: 63043 Subs Hosp L2 06/02/23 0903 <Electronically signed by Mick Pelletier MD> Cosigner Signature (if applicable): CC: ~ Signed [facility] Work Phone: 1(659) 666-835309-30-2023 Consult note Author Jazz Clolins [facility] June 01, 2023 8:39am Note Date/Time June 01, 2023 7:50am [facility] Medical Records Department [address] [place] [address] Consultation - Surgical 06/01/23 0750 MR#: [id number] Acct: [id number] Name: JENA RAMIREZ Rep #:[id number] : 1955 68 From: Jazz Collins MD PCP: Dr. Rito Camp MD Status:ADM IN Location: [place] [address] Assessment & Plan Assessment/Plan (1) SBO (small [...] quickly last time. Jazz Collins M.D. Pager: [phone] [facility] [address] [place] [address], [facility], [address] [place] [address] Office: [phone] HPI Consult Data Date of Consult: 06/01/23 [...] cell count admit was 13.8 currentlyis 11.7. [facility] Medical History Alcohol abuse Anxiety associated [...] 76.5 H, Lymph % (Auto) 13.7 L, [place] % (Auto) 7.4, Eos % (Auto) 1.4, [...] Clarity Clear, Urine pH 7.0, Ur Specific [place] 1.010, Urine Protein Negative, Urine Glucose (UA) [...] (Auto) 84.7 H, Lymph % (Auto)8.4 L, [place] % (Auto) 5.7, Eos % (Auto) 0.3, [...] EDT , Charges/Coding Visit Charges Inpatient E&M: 94930 Init Hosp L3 06/01/23 0839 <Electronically signed by Jazz Collins MD> Cosigner Signature (if applicable): CC: Dr. Rito Camp MD; Dr. Boby Jordan MD; Dr. Jazz Collins MD~ Signed [facility] Work Phone: 1(983) 160-701709-30-2023 History and physical note Author Boby Jordan [facility] June 01, 2023 5:38am Note Date/Time June 01, 2023 12:53am [facility] Medical Records Department [address] [place] [address] H&P Exam - Hospitalist 06/01/23 0052 MR#: [id number] Acct: [id number] Name: JENA RAMIREZ Rep #:[id number] : 1955 68 From: Boby Jordan MD PCP: Dr. Rito Camp MD Status:ADM IN Location: [facility] PE745-5 HPI - General General Date of Admission: [...] ago when an NG tube was placed. [facility] Medical History Alcohol abuse Anxiety associated [...] 76.5 H, Lymph % (Auto) 13.7 L, [place] % (Auto) 7.4, Eos % (Auto) 1.4, [...] Clarity Clear, Urine pH 7.0, Ur Specific [place] 1.010, Urine Protein Negative, Urine Glucose (UA) [...] documentation, 30minutes. Charges/Coding Visit Charges Inpatient E&M: 29484 Init Hosp L2 06/01/23 0538 <Electronically signed by Boby Jordan MD> Cosigner Signature (if applicable): CC: Dr. Rito Camp MD; Dr. Boby Jordan MD~ Signed [facility] Work Phone: 1(468) 907-347009-30-2023 Discharge summary Author Tyler Green [facility] June 01, 2023 12:41am Note Date/Time May 31, 2023 10:05pm [facility] Medical Records Department [address] [place] [address] Emergency Department Summary 05/31/23 MR#: [id number] Acct: [id number] Name: JENA RAMIREZ Rep #:[id number] : [...] mg/mL subcutaneous syringe (denosumab) 60 mg subcut [id number] #1 mL 02/25/23 [Rx Last Taken Unknown] [...] surgery, hospitalist This note was generated with Dermiraation software. It may contain incorrectwords, spelling, and [...] 76.5 H Lymph % (Auto) 13.7 L [place] % (Auto) 7.4 Eos % (Auto) 1.4 [...] Clarity Clear Urine pH 7.0 Ur Specific [place] 1.010 Urine Protein Negative Urine Glucose (UA) [...] Prolia 60 mg/mL syringe 60 mg subcut [id number] Qty: 1 1RF trazodone 100 MG tablet [...] Provider] - Disposition Disposition: Acute Care Hospital [facility] What to do if you have Problems For any increased pain, shortness of breath, bleeding, nausea or vomiting, chestpain, or any unexpected problems, contact your Primary Care Provider. Call [facility] ([phone]) or report to the closest Emergency Room. Call 911 if necessary. 06/01/23 0041 <Electronically signed by Tyler Faria> Cosigner Signature (if applicable): CC: Dr. Rito Camp MD ~ Signed [facility] Work Phone: 1(218) 257-724909-30-2023 Discharge summary Author Tyler Green [facility] June 01, 2023 12:41am Note Date/Time May 31, 2023 10:05pm [facility] Medical Records Department [address] [place] [address] Emergency Department Summary 05/31/23 MR#: [id number] Acct: [id number] Name: JENA RAMIREZ Rep #:[id number] : [...] mg/mL subcutaneous syringe (denosumab) 60 mg subcut [id number] #1 mL 02/25/23 [Rx Last Taken Unknown] [...] surgery, hospitalist This note was generated with Lukkin dictation software. It may contain incorrectwords, spelling, [...] 76.5 H Lymph % (Auto) 13.7 L [place] % (Auto) 7.4 Eos % (Auto) 1.4 [...] Clarity Clear Urine pH 7.0 Ur Specific [place]ia 1.010 Urine Protein Negative Urine Glucose (UA) [...] Prolia 60 mg/mL syringe 60 mg subcut [id number] Qty: 1 1RF trazodone 100 MG tablet [...] MD [Primary Care Provider] - Disposition Disposition: [facility] What to do if you have Problems For any increased pain, shortness of breath, bleeding, nausea or vomiting, chestpain, or any unexpected problems, contact your Primary Care Provider. Call [facility] ([phone]) or report to the closest Emergency Room. Call 911 if necessary. 06/01/23 0041 <Electronically signed by Tyler Faria> Cosigner Signature (if applicable): CC: Dr. Rito Camp MD ~ Signed [facility] Work Phone: [phone] 532-245709-13-2023 Miscellaneous Notes* Telephone Encounter - Maliha Fregoso [...] today) Melita Le LPN documented in this encounterP[facility]08-15-2023 Miscellaneous Notes* Telephone Encounter - Melita [...] notify patient. Hallie Paul documented in this encounterPike [facility] Hospital08-09-2023 Miscellaneous Notes* Telephone Encounter - Elana Waller PSS - 04/10/2023 11:49 AM EDT CD/REPORT IS READY FOR WEATHER ALGORITHM SCIENTIST AT [facility] RADIOLOGY * Telephone Encounter - Harshal Kirkland Joana - 04/10/2023 8:51 AM EDT Patient is requesting Ct Chest from December copied to a disk for lemon picker with a copy of the report for lemon picker tomorrow. documented in this encounterPike [facility] Hospital07-06-2023 Miscellaneous Notes* Telephone Encounter - Rito [...] 1 * Telephone Encounter - Liz Mackenzie [facility] - 03/07/2023 1:06 PM EDT Diony Ramirez is calling Rito Camp MD today to request a medication that does not appearon current medication list . Trazadone 150 mg takes 1 once daily at bedtime Please send to [facility] for 90 days with refills Patient has been identified by name and birthdate. Duration of symptoms: N/A Person calling: self Call patient at: on cell [phone] (cell) Was an appointment scheduled: No Closing statement: Results or non-symptom based questions: Thank you for calling [facility], your call will be returned within the next business day. Liz Mackenzie [facility] Electronically signed by Liz Mackenzie [facility] at 03/07/2023 1:12 PM EDT documented in this encounterPike [facility] Hospital06-30-2023 Miscellaneous Notes* Telephone Encounter - CHETAN [...] to please advise patient. documented in this encounterPike Community Hospital06-29-2023 History of Present illness Narrative* Kerrie [...] more often than normal? No Based on deckhand crab boat, the following disposition is advised: No symptoms or symptoms present, not severe. Routed to: No Action Needed PALOMA Education Provided this Outreach: No Kerrie Damian RN February 28, 2023 4:07 PM documented in this encounterPike [facility] Hospital06-29-2023 History of Present illness Narrative* Kerrie Damian RN - 02/28/2023 3:55 PM EDT Opened in error documented in this encounterPike Community Hospital06-28-2023 Miscellaneous Notes* Telephone Encounter - Albania Gill RN - 02/27/2023 12:45 PM EDT Patient notified of results and provider's instructions. Patient verbalizes understanding. Albania Gill RN * Telephone Encounter - Shanita Green PA-C - 02/27/2023 12:18 PM EDT Let patient know that her platelet count has improved. Iron levels are normal. Recheck cbc in 1 month. Shanita Green PA-C documented in this encounterPike Community Hospital06-27-2023 History of Present illness Narrative* Melita Le LPN - 02/26/2023 2:59 PM EDT Scan on 02/25/2023 10:17 AM by External Provider, MU: Consultation - Endocrinology documented in this encounterPike Community Hospital06-27-2023 Miscellaneous Notes* Telephone Encounter - Cami Kidd Cma - 02/26/2023 1:58 PM EDT Patient notified and verbalized understanding Cami Kidd Cma * Telephone Encounter - Alex Brown APRN.CNP - 02/26/2023 12:54 PM EDT Please let patient know her CT is normal. documented in this encounterPike Community Hospital06-27-2023 History of Present illness Narrative* Charleen [...] 2023 TIME: 12:35 PM documented in this encounterPike [facility] Hospital06-22-2023 Miscellaneous Notes* Telephone Encounter - Maliha [...] counts. Shanita Green PA-C documented in this encounterPike Community Hospital06-21-2023 Instructions* Patient Instructions* Shanita Green PA-C - 02/20/2023 8:42 AM EDT Taper off of the trazodone to see how you do with hydroxyzine on it's own for sleep. Take 1/2 tablet of trazodone x 1 week and then stop. documented in this encounterPike Community Hospital06-21-2023 History of Present illness Narrative* Shanita Green PA-C - 02/20/2023 8:29 AM EDT Chief Complaint Patient presents with: Recheck: Blood pressure HPI Diony Ramirez is a 67 year old female who presents here today for multiple concerns. Patient reports headaches for the past week. Was having sinus issues too but those improved. [place] like BP at home as been elevated [...] results Shanita Green PA-C documented in this encounterPike Community Hospital06-16-2023 Instructions* Patient Instructions* Alex Brown APRN.CNP - 02/15/2023 9:53 AM EDT Start hydroxyzine, cetirizine, fluticasone Schedule with allergy documented in this encounterPike Community Hospital06-16-2023 History of Present illness Narrative* Alex [...] - IV CONTRAST (RADIOLOGY PROCEDURE) Alex Brown APRN.COMPOUNDING AND FINISHING SUPERVISOR documented in this encounterPike Community Hospital05-08-2023 History of Present illness Narrative* Ruth Denton RN - 01/07/2023 1:21 PM EDT [facility] Telephonic Outreach Provider Action/FYI Made call #2. NA/Left vm. Left H@H reminder. Contacted for: Routine Telephonic Outreach Contact made with patient: No, left message. Ruth Denton RN January 07, 2023 1:23 PM * Ruth Denton RN - 01/03/2023 1:19 PM EDT [facility] Telephonic Outreach Provider Action/FYI Made call #1. NA/left vm. Contacted for: Routine Telephonic Outreach Contact made with patient: No, left message. Ruth Denton RN January 07, 2023 1:21 PM documented in this encounterPike Community Hospital05-01-2023 Miscellaneous Notes* Telephone Encounter - Elizabeth [...] review. Elizabeth Eckert LPN documented in this encounterPike Community Hospital04-18-2023 History of Present illness Narrative* Myriam [...] 18, 2022 9:49 AM documented in this encounterPike Community Hospital04-07-2023 History of Present illness Narrative* Ruth [...] like to speak with a social work clinical team manager to help give you support for any [...] you up for automated weekly questionnaires through [address]. This is an easy way for us [...] PtOutreach and End outreach. documented in this encounterPike Community Hospital04-05-2023 Miscellaneous Notes* Telephone Encounter - Marli [...] CT of her abd/pelvis. documented in this encounterPike Community Hospital04-05-2023 Miscellaneous Notes* Telephone Encounter - Angella Santiago Pss - 12/05/2022 11:35 AM EDT Diony is asking for 90 day scripts with 3 refills. Pended meds have been changed to reflect that request. Please review and send as appropriate. * Telephone Encounter - Angella Santiago Pss - 12/05/2022 11:34 AM EDT Pharmacy verified in [facility] Patient has been identified by name and [...] advise. Angella Santiago Pss documented in this encounterPike Community Hospital04-03-2023 History of Present illness Narrative* Mary Ann Perez RDMS - 12/03/2022 9:15 AM EDT Radiology Service Progress Note PATIENT NAME: Diony Ramierz DATE OF SERVICE: December 03, 2022 TIME: [...] 03, 2022 9:40 AM documented in this encounterPike Community Hospital04-03-2023 History of Present illness Narrative* Charleen [...] 03, 2022 3:29 PM documented in this encounterPike Community Hospital03-21-2023 Miscellaneous Notes* Telephone Encounter - Mitzy Jacobson LPN - 11/20/2022 3:15 PM EDT Pt notified of results. Mitzy Jacobson LPN * Telephone Encounter - Shanita Green PA-C - 11/20/2022 2:43 PM EDT Thyroid levels are normal. Shanita Green PA-C documented in this encounterPike Community Hospital03-20-2023 Instructions* Patient Instructions* Rito Camp MD - 11/19/2022 10:38 AM EDT Please go to [facility] and ask for a copy of your Chest CT done May 2022 placed onto a disc. When you come into [facility] for your chest CT bring the disc with you and give to radiology so it can be up loaded into the system. documented in this encounterPike Community Hospital03-20-2023 History of Present illness Narrative* Rito [...] Lymph 1.00 - 4.00 k/uL 1.80 1.90 [place]% % 7.8 10.1 Abs [place] <0.87 k/uL 0.93 (H) 0.88 (H) Eosin% [...] - check CT chest without contrast at [facility] w 3. Multiple thyroid nodules - [...] which included preparing to see the patient, [id number] patient care, completing clinical documentation, performing a medically appropriate examination, counseling and educating the patient/family/caregiver and ordering medications, tests, or procedures. Rito Camp MD documented in this encounterPike Community Hospital03-17-2023 Miscellaneous Notes* Telephone Encounter - Rito Camp MD - 11/16/2022 12:44 PM EDT Let patient know her DXA scan shows worsening of her osteoporosis. See if willing to meet with endocrine to determine next best coarse of action. Discussed her DXA scan results at her visit on 11/19/2022. documented in this encounterPike Community Hospital03-14-2023 History of Present illness Narrative* Bashir [...] 13, 2022 9:26 AM documented in this encounterPike Community Hospital03-13-2023 History of Present illness Narrative* Ruth [...] States she has a PCP visit with COMPOUNDING AND FINISHING SUPERVISOR on November 19. Advised if any escalating [...] like to speak with a social work clinical team manager to help give you support for any [...] you up for automated weekly questionnaires through [address]. This is an easy way for us [...] PtOutreach and End outreach. documented in this encounterPike Community Hospital03-07-2023 Miscellaneous Notes* Telephone Encounter - Ainsley Del Valle Ma - 11/06/2022 9:12 AM EST Patient notified and verbalized understanding Ainsley Del Valle Ma * Telephone Encounter - Rito Camp MD - 11/05/2022 8:58 PM EST Let patient know repeat CBC was ok. documented in this encounterPike Community Hospital01-26-2023 Instructions* Patient Instructions* Rito Camp MD - 09/27/2022 10:24 AM EST Please get non-fasting blood count on or after 10/31/2022 documented in this encounterPike Community Hospital01-26-2023 History of Present illness Narrative* Rtio Camp MD - 09/27/2022 10:00 AM EST [...] times per week with walking and elipitical application trainer. She watches her diet for sodium, low fat and low cholesterol some of the time. List of current specialists seen: - Dr. Suleman Gustafson (Pul) - Dr. Shore (Urology) - optho End of Live Planning discussed including patients advanced directive wishes: Yes I am willing to follow [employer]s advanced directives. PHQ-2 / Depression screen Depression [...] Lymph 1.00 - 4.00 k/uL 2.03 1.80 [place]% % 10.1 7.8 Abs [place] <0.87 k/uL 0.75 0.93 (H) Eosin% % [...] Negative Ketones, Urine Trace, Negative Negative Specific [place], Ur 1.005 - 1.030 1.017 Hemoglobin/Blood,Ur Negative, [...] which included preparing to see the patient, [id number] patient care, completing clinical documentation, performing a medically appropriate examination, counseling and educating the patient/family/caregiver and ordering medications, tests, or procedures. Rito Camp MD documented in this encounterPike Community Hospital01-16-2023 History of Present illness Narrative* Kami [...] like to speak with a social work clinical team manager to help give you support for any [...] you up for automated weekly questionnaires through [address]. This is an easy way for us [...] my name is Kami Hunter RN your Chlorine Cells Operator [facility] I am calling today for your bi-weekly check in. I am sorry I missed your call. I will reach out to you again tomorrow. (if the third call I will reach out to you again next week) Enter next patient outreach date for the following using the Track Pt Outreach. End outreach. documented in this encounterPike Community Hospital01-11-2023 Miscellaneous Notes* Telephone Encounter - Aury [...] and assist. Leslye PSS documented in this encounterPike Community Hospital12-27-2022 Miscellaneous Notes* Telephone Encounter - Fannie [...] Thank you. Bushra Orozco documented in this encounterPike Community Hospital12-16-2022 Miscellaneous Notes* Telephone Encounter - Rito [...] and advise. Angella Ulrich documented in this encounterPike Community Hospital12-13-2022 History of Present illness Narrative* Angella [...] this appointment? N/A Reason for Outreach [facility] Payer: Payor: [employer] AND [employer] / Plan: [employer] HMO / Product Type: HMO / Care [...] like to speak with a social work clinical team manager to help give you support for any [...] you up for automated weekly questionnaires through [address]. This is an easy way for us [...] PtOutreach and End outreach. documented in this encounterPike Community Hospital11-30-2022 Miscellaneous Notes* Letter - Mammography Coordinator - 08/01/2022 6:14 PM EST August 01, 2022 PID: [id number] Diony Ramirez [address] [place] [id number] Dear Ms. Ramirez, We are pleased to [...] report will be [facility] as part of your permanent medical record and are available for your continuing care. Thank you for allowing us to help in meeting your health care needs. Sincerely, Dr. Ozuna Interpreting Radiologist [facility] (Normal over 40) documented in this encounterPike Community Hospital11-29-2022 History of Present illness Narrative* Marixa [...] 31, 2022 9:05 AM documented in this encounterPike Community Hospital11-29-2022 History of Present illness Narrative* Ashleigh Negrete APRN.LUIS FELIPE - 07/31/2022 9:06 AM EST Dehydration Plant Operator offered: Patient declines. Diony is a 67 [...] L0 SAB0 IAB0 Ectopic0 Multiple0 Live Births0 Marketing Technology Coordinator History LMP: 03/23/2007, Postmenopausal Age at Menarche: Age at First : Age at Menopause: Marketing Technology Coordinator History Comments: Sexual Activity: Yes; Male; Tubal [...] external genitalia normal, normal Bartholin's glands, urethra, Harriston's glands, no vulvar lesions, no cervical lesions, [...] Ashleigh Negrete APRN.LUIS FELIPE documented in this encounterPike Community Hospital11-21-2022 History of Present illness Narrative* Kami [...] like to speak with a social work clinical team manager to help give you support for any [...] you up for automated weekly questionnaires through [address]. This is an easy way for us [...] PtOutreach and End outreach. documented in this encounterPike Community Hospital11-07-2022 Miscellaneous Notes* Telephone Encounter - Kayce Mendiola LPN - 07/09/2022 5:25 PM EST Patient notified. Kayce Mendiola LPN * Telephone Encounter - Sweetie Romeo APRN.CNP - 07/09/2022 4:24 PM EST Please call patient and let her know her chest xray does not show any acute findings. Sweetie Romeo APRN.LUIS FELIPE documented in this encounterPike Community Hospital11-07-2022 History of Present illness Narrative* Sweetie Romeo APRN.CNP - 07/09/2022 10:49 AM EST 07/09/2022 Patient presents with: Covid: Diagnosed 07/04/22, continuing to have difficulty breathing SUBJECTIVE: This is a 67 year old that is here today for Above Complaints. Tested positive for COVID-19 on 07/04 with symptoms starting two days prior. Placed on prednisone. She reports she talked to her ice cream machine operator , Dr. Gustafson and he put her [...] showed normal sinus rhythm at 82 BPM, MI interval 124 ms, normal QRS, normal ST-T, [...] ER with red flag symptoms Sweetie Romeo, COLD STRIP FEEDER.COMPOUNDING AND FINISHING SUPERVISOR Prescription instructions reviewed with patient as applicable. [...] which included preparing to see the patient, [id number]-[id number] patient care, completing clinical documentation, obtaining and/or reviewing separately obtained history, performing a medically appropriate examination, counseling and educating the pat ient/family/caregiver, and ordering medications, tests, or procedures. documented in this encounterPike Community Hospital11-07-2022 Miscellaneous Notes* Telephone Encounter - Joana Au RN - 07/09/2022 8:22 AM EST Patient calling and states she was seen in [facility] on 07/04/22 for suspected COVID. Patient wastested [...] Romeo for 10:40am. Please call patient at [phone] if provider has other instructions. Will send this message to Shanita Green and Sweetie Romeo for review. Thank you. documented in this encounterPike Community Hospital11-03-2022 Miscellaneous Notes* Telephone Encounter - Alice [...] was negative for flu. documented in this encounterPike Community Hospital11-02-2022 Instructions* Patient Instructions* Rito Sheridan APRN.LUIS [...] or concerning to you. documented in this encounterPike Community Hospital11-02-2022 History of Present illness Narrative* Rito [...] of care. This note was generated using Lukkin software. It may contain errors in wording, punctuation, or spelling. Rito Sheridan APRN.LUIS FELIPE documented in this encounterPike Community Hospital10-31-2022 History of Present illness Narrative* Kami Hunter RN - 07/02/2022 1:33 PM EDT [facility] TELEPHONIC OUTREACH Provider Action/FYI: Contact made with patient: No - Left message Radha my name is Kami Hunter RN your Chlorine Cells Operator [facility] I am calling today for your bi-weekly check in. I am sorry I missed your call. I will reach out to you again tomorrow. (if the third call I will reach out to you again next week) Enter next patient outreach date for the following business day using the Track Pt Outreach. End outreach. documented in this encounterPike Community Hospital10-11-2022 History of Present illness Narrative* Kami Hunter RN - 06/12/2022 1:36 PM EDT [facility] TELEPHONIC OUTREACH Provider Action/FYI: Contact made with patient: No - Left message Radha my name is Kami Hunter RN your Chlorine Cells Operator [facility] I am calling today for your bi-weekly check in. I am sorry I missed your call. I will reach out to you again in three weeks. (if the third call I will reach out to you again next week) Enter next patient outreach date for the following business day using the Track Pt Outreach. End outreach. documented in this encounterPike Community Hospital09-26-2022 Instructions* Patient Instructions* Shanita Green PA-C - 05/28/2022 10:38 AM EDT I would like you to see Dr. Shore for the overactive bladder. Try spliting the dose of trazodone. Taking one tablet at bedtime and then a 1/2 tablet when you wake in middle of the night. Follow up for routine check up in 3-4 months. documented in this encounterPike Community Hospital09-26-2022 History of Present illness Narrative* Shanita [...] UROLOGY Shanita Green PA-C documented in this encounterPike Community Hospital09-06-2022 History of Present illness Narrative* Kami [...] like to speak with a social work clinical team manager to help give you support for any [...] you up for automated weekly questionnaires through [address]. This is an easy way for us [...] PtOutreach and End outreach. documented in this encounterPike Community Hospital09-06-2022 Miscellaneous Notes* Telephone Encounter - Melita [...] advise, Albania Gill RN documented in this encounterPike Community Hospital08-30-2022 Miscellaneous Notes* Telephone Encounter - Shanita [...] to the pharmacy. Please call patient at: [phone] Tarsha Centeno Pss Last refill 09/20/21 Qty: [...] to the pharmacy. Please call patient at: [phone] Tarsha Centeno Pss documented in this encounterPike Community Hospital08-23-2022 History of Present illness Narrative* Kami [...] like to speak with a social work clinical team manager to help give you support for any [...] you up for automated weekly questionnaires through [address]. This is an easy way for us [...] PtOutreach and End outreach. documented in this encounterPike Community Hospital08-22-2022 History of Present illness Narrative* Kami Hunter RN - 04/23/2022 3:36 PM EDT [facility] TELEPHONIC OUTREACH Provider Action/FYI: Contact made with patient: No - Left message Hello my name is Kami Hunter RN your Chlorine Cells Operator [facility] I am calling today for your bi-weekly check in. I am sorry I missed your call. I will reach out to you again tomorrow. (if the third call I will reach out to you again next week) Enter next patient outreach date for the following using the Track Pt Outreach. End outreach. documented in this encounterPike Community Hospital08-10-2022 Miscellaneous Notes* Telephone Encounter - Kami Hunter RN - 04/11/2022 2:10 PM EDT PRIMARY CARE COORDINATION QUICK NOTE Provider Action/FYI Per routing comment, pcp advises to schedule appt to discuss. Encounter routed to [facility] to call patient to schedule. Patient identified [...] Please send reply to Nurse Triage or [facility] as needed. Message received via: InSight - Yes contact made with patient ACTION TAKEN: Based on deckhand crab boat, the following disposition is advised: SYMPTOMS PRESENT NOT SEVERE: No action required - Continue outreach / Phone Call documented in this encounterPike Community Hospital08-09-2022 History of Present illness Narrative* Kami Hunter RN - 04/10/2022 3:50 PM EDT PRIMARY CARE COORDINATION QUICK NOTE Provider Action/FYI Radha this is Kami Hunter RN your nurse Chlorine Cells Operator. I am calling to provide you with a phone number to connect you with [facility] services. This number is available 7 [...] name and date . documented in this encounterPike Community Hospital08-02-2022 History of Present illness Narrative* Kami [...] like to speak with a social work clinical team manager to help give you support for any [...] you up for automated weekly questionnaires through [address]. This is an easy way for us [...] my name is Kami Hunter RN your Chlorine Cells Operator [facility] I am calling today for your bi-weekly check in. I am sorry I missed your call. I will reach out to you again tomorrow. (if the third call I will reach out to you again next week) Enter next patient outreach date for the following business day using the Track Pt Outreach. End outreach. documented in this encounterPike Community Hospital07-29-2022 Miscellaneous Notes* Telephone Encounter - Joana Au RN - 03/30/2022 11:40 AM EDT Patient returned call and given provider's message below and patient verbalized understanding. Patient transferred to keel press operator. Susan Au RN * Telephone Encounter - [...] show a 5cm uterine fibroid. Will consult heel seam rubber for any further recommendations from them. Shanita Green PA-C documented in this encounterPike Community Hospital07-28-2022 History of Present illness Narrative* RT [...] 29, 2022 11:14 AM documented in this encounterPike Community Hospital07-25-2022 Miscellaneous Notes* Telephone Encounter - Cely [...] normal. Shanita Green PA-C documented in this encounterPike Community Hospital07-22-2022 History of Present illness Narrative* Fina [...] 23, 2022 8:38 AM documented in this encounterPike Community Hospital07-22-2022 History of Present illness Narrative* Shanita Green PA-C - 03/23/2022 7:54 AM EDT Chief Complaint Patient presents with: Hospital Follow Up HPI Diony Ramirez is a 67 year old female who presents here today for Hospital Discharge Follow up.. Patient developed upper abdominal pain on 03/16. It did not improved so she went to 03/17/22 [facility]. Was found to have a small [...] DIFF Shanita Green PA-C [facility] History of Present illness Narrative* Kami Hunter RN - 03/21/2022 1:37 PM EDT INSIGHT CD TELEPHONIC OUTREACH Provider Action/FYI: Patient reports she is doing better since inpatient at [facility] for SBO. Patient has hospital follow [...] like to speak with a social work clinical team manager to help give you support for any [...] you up for automated weekly questionnaires through [address]. This is an easy way for us [...] PtOutreach and End outreach. [facility] History of Present illness Narrative* Kami Hunter RN - 03/20/2022 2:01 PM EDT INSIGHT [facility] TELEPHONIC OUTREACH Provider Action/FYI: Contact made with patient: No - Left message Hello my name is Kami Hunter RN your Chlorine Cells Operator [facility] I am calling today for your bi-weekly check in. I am sorry I missed your call. I will reach out to you again tomorrow. (if the third call I will reach out to you again next week) Enter next patient outreach date for the following day using the Track Pt Outreach. End outreach. [facility] History of Present illness Narrative* Bashir [...] 14, 2022 10:51 AM documented [facility] History of Present illness Narrative* Bernard [...] cushion. Bernard Elliott MD [facility] History of Present illness Narrative* Kami [...] like to speak with a social work clinical team manager to help give you support for any [...] you up for automated weekly questionnaires through [address]. This is an easy way for us [...] PtOutreach and End outreach. [facility] History of Present illness Narrative* Kami Hunter RN - 03/02/2022 1:22 PM EDT INSIGHT CDM TELEPHONIC OUTREACH Provider Action/FYI: Contact made with patient: No - Left message Hello my name is Kami Hunter RN your Chlorine Cells Operator [facility] I am calling today for your bi-weekly check in. I am sorry I missed your call. I will reach out to you again tomorrow. (if the third call I will reach out to you again next week) Enter next patient outreach date for the following business day using the Track Pt Outreach. End outreach. [facility] History of Present illness Narrative* Kami Hunter RN - 02/15/2022 3:18 PM EDT INSIGHT CDM TELEPHONIC OUTREACH Provider Action/FYI: Contact made with patient: No - Unable to leave message Entered next patient outreach date for the following business day, if third call please enter next outreach date for one week in the Track Pt. Outreach - End Outreach documented in [facility] encounterP[facility] History of Present illness Narrative* Good [...] name and date . Kami Hunter RN Clinical Biostatistician * Rito Camp MD - 02/01/2022 3:42 [...] like to speak with a social work clinical team manager to help give you support for any [...] you up for automated weekly questionnaires through [address]. This is an easy way for us [...] PtOutreach and End outreach. documented [facility] History of Present illness Narrative* Kami [...] like to speak with a social work clinical team manager to help give you support for any [...] you up for automated weekly questionnaires through [address]. This is an easy way for us [...] PtOutreach and End outreach. documented in this encounterP[facility] Miscellaneous Notes* Telephone Encounter - Rito [...] urgent care for evaluation. documented in this encounterP[facility] History of Present illness Narrative* Shanna Newton APRN.COMPOUNDING AND FINISHING SUPERVISOR - 01/10/2022 9:58 AM EDT CC: Patient [...] Shanna Newton APRN.LUIS FELIPE documented in this encounterP[facility] History of Present illness Narrative* Kami Hunter RN - 01/02/2022 2:31 PM EDT INSIGHT [facility] TELEPHONIC OUTREACH Provider Action/FYI: Pt had returned [...] like to speak with a social work clinical team manager to help give you support for any [...] you up for automated weekly questionnaires through [address]. This is an easy way for us [...] my name is Kami Hunter RN your Chlorine Cells Operator [facility] I am calling today for your bi-weekly check in. I am sorry I missed your call. I will reach out to you again tomorrow. (if the third call I will reach out to you again next week) Enter next patient outreach date for the following business day using the Track Pt Outreach. End outreach. documented in this encounterP[facility]04[facility] Miscellaneous Notes* Telephone Encounter - Shanita [...] more vitamins than needed. documented in this encounterP[facility] Miscellaneous Notes* Telephone Encounter - Melita [...] come back. Please advise. documented in this encounterP[facility]04[facility]22 Miscellaneous Notes* Telephone Encounter - Fannie [...] Patient states she has been taking about [id number] international unit(s) of Vit D a day [...] process. Shanita Green PA-C documented in this encounterP[facility]04[facility] History of Present illness Narrative* Shanita [...] HYDROXY Shanita Green PA-C documented in this encounterP[facility]04[facility] History of Present illness Narrative* Kami Hunter RN - 12/18/2021 2:32 PM EDT INSIGHT [facility] TELEPHONIC OUTREACH Provider Action/FYI: Pt reports she [...] like to speak with a social work clinical team manager to help give you support for any [...] you up for automated weekly questionnaires through [address]. This is an easy way for us [...] PtOutreach and End outreach. documented in this encounterP[facility]04[facility] History of Present illness Narrative* Kami Hunter RN - 12/04/2021 3:14 PM EDT INSIGHT [facility] TELEPHONIC OUTREACH Provider Action/FYI: Pt reports she [...] like to speak with a social work clinical team manager to help give you support for any [...] you up for automated weekly questionnaires through [address]. This is an easy way for us [...] PtOutreach and End outreach. documented in this encounterP[facility]04[facility]21 History of Present illness Narrative* Bashir [...] 17, 2020 10:08 AM documented in this encounterP[facility]11-[facility]-2020 History of Present illness Narrative* Kita [...] 23, 2020 10:01 AM documented in this encounterP[facility]11-21-2020 Miscellaneous Notes* Result Encounter Note - Darvin Gold III - 07/23/2020 9:50 AM EST Good news chest x-ray is normal. No evidence of pneumonia. Darvin Gold III, MD, FAAFP documented in this encounterP[facility]11-21-2020 Progress note* Result Encounter Note - Darvin Gold III - 07/23/2020 9:50 AM EST Good news chest x-ray is normal. No evidence of pneumonia. Darvin Gold III, MD, FAAFP [facility] Narrative* Problem [...] of this encounter (statuses as of 12/04/2021) [facility] Narrative* Problem [...] of this encounter (statuses as of 12/18/2021) [facility] Narrative* Problem [...] of this encounter (statuses as of 12/19/2021) [facility]arr[facility]* Problem [...] of this encounter (statuses as of 12/20/2021) [facility]* Problem [...] of this encounter (statuses as of 12/22/2021) [facility]* Problem [...] of this encounter (statuses as of 12/26/2021) [facility]* Problem [...] of this encounter (statuses as of 01/02/2022) [facility]* Problem [...] of this encounter (statuses as of 01/10/2022) [facility]* Problem [...] of this encounter (statuses as of 01/10/2022) [facility]* Problem [...] of this encounter (statuses as of 01/15/2022) [facility]* Problem [...] of this encounter (statuses as of 02/01/2022) [facility]* Problem [...] of this encounter (statuses as of 02/15/2022) [facility]* Problem [...] of this encounter (statuses as of 03/02/2022) [facility]* Problem [...] of this encounter (statuses as of 03/06/2022) [facility]* Problem [...] of this encounter (statuses as of 03/14/2022) [facility]* Problem [...] of this encounter (statuses as of 03/20/2022) [facility]* Problem [...] of this encounter (statuses as of 03/21/2022) [facility]* Problem [...] of this encounter (statuses as of 03/23/2022) [facility]* Problem [...] of this encounter (statuses as of 03/26/2022) [facility]* Problem [...] of this encounter (statuses as of 03/30/2022) [facility]* Problem [...] of this encounter (statuses as of 03/30/2022) [facility] Problem [...] of this encounter (statuses as of 04/03/2022) [facility]* Problem [...] of this encounter (statuses as of 04/10/2022) [facility] Problem [...] of this encounter (statuses as of 04/11/2022) [facility] Problem [...] of this encounter (statuses as of 04/23/2022) [facility] Problem [...] of this encounter (statuses as of 04/24/2022) [facility] Problem [...] of this encounter (statuses as of 05/01/2022) [facility] Problem [...] of this encounter (statuses as of 05/08/2022) [facility] Problem [...] of this encounter (statuses as of 05/08/2022) [facility] Problem [...] of this encounter (statuses as of 05/28/2022) [facility] Problem [...] of this encounter (statuses as of 06/12/2022) [facility] Problem [...] of this encounter (statuses as of 07/02/2022) [facility] Problem [...] of this encounter (statuses as of 07/04/2022) [facility] Problem [...] of this encounter (statuses as of 07/05/2022) [facility] Problem [...] of this encounter (statuses as of 07/09/2022) [facility] Problem [...] of this encounter (statuses as of 07/09/2022) [facility] Problem [...] of this encounter (statuses as of 07/09/2022) [facility] Problem [...] of this encounter (statuses as of 07/23/2022) [facility] Problem [...] of this encounter (statuses as of 07/31/2022) [facility] Problem [...] of this encounter (statuses as of 08/03/2022) [facility] Problem [...] of this encounter (statuses as of 08/14/2022) [facility] Problem [...] of this encounter (statuses as of 08/17/2022) [facility] Problem [...] of this encounter (statuses as of 09/04/2022) [facility] Problem [...] of this encounter (statuses as of 09/12/2022) [facility] Problem [...] of this encounter (statuses as of 09/17/2022) [facility] Problem [...] of this encounter (statuses as of 09/27/2022) [facility] Problem [...] of this encounter (statuses as of 11/06/2022) [facility] Problem [...] of this encounter (statuses as of 11/12/2022) [facility] Problem [...] of this encounter (statuses as of 11/19/2022) [facility] Problem [...] of this encounter (statuses as of 11/19/2022) [facility] Problem [...] of this encounter (statuses as of 11/20/2022) [facility] Problem [...] of this encounter (statuses as of 12/05/2022) [facility] Problem [...] of this encounter (statuses as of 12/06/2022) [facility] Problem [...] of this encounter (statuses as of 12/07/2022) [facility] Problem [...] of this encounter (statuses as of 01/01/2023) [facility] Problem [...] of this encounter (statuses as of 01/07/2023) [facility] Problem [...] of this encounter (statuses as of 02/15/2023) [facility] Problem [...] of this encounter (statuses as of 02/20/2023) [facility] Problem [...] of this encounter (statuses as of 02/21/2023) [facility] Problem [...] of this encounter (statuses as of 02/26/2023) [facility] Problem [...] of this encounter (statuses as of 02/27/2023) [facility] Problem [...] of this encounter (statuses as of 02/27/2023) [facility] Problem [...] of this encounter (statuses as of 03/01/2023) [facility] Problem [...] of this encounter (statuses as of 03/08/2023) [facility] Problem [...] of this encounter (statuses as of 04/17/2023) [facility] Problem [...] of this encounter (statuses as of 05/07/2023) [facility] Problem [...] of this encounter (statuses as of 05/15/2023) [facility] Problem [...] of this encounter (statuses as of 06/04/2023) [facility] Problem [...] of this encounter (statuses as of 06/05/2023) [facility] Problem [...] of this encounter (statuses as of 06/07/2023) [facility] Problem [...] of this encounter (statuses as of 06/08/2023) [facility] Problem [...] of this encounter (statuses as of 06/12/2023) [facility] Problem [...] of this encounter (statuses as of 06/13/2023) [facility] Problem [...] of this encounter (statuses as of 06/20/2023) [facility] Problem [...] of this encounter (statuses as of 06/21/2023) [facility] Problem [...] of this encounter (statuses as of 06/28/2023) [facility] Problem [...] of this encounter (statuses as of 07/06/2023) [facility] Problem [...] of this encounter (statuses as of 07/06/2023) [facility] Problem [...] of this encounter (statuses as of 07/06/2023) [facility] Problem [...] of this encounter (statuses as of 07/06/2023) [facility] Problem [...] of this encounter (statuses as of 07/06/2023) [facility] Problem [...] of this encounter (statuses as of 07/06/2023) [facility] Problem [...] of this encounter (statuses as of 07/15/2023) [facility] Problem [...] of this encounter (statuses as of 07/22/2023) [facility] Problem [...] of this encounter (statuses as of 08/01/2023) [facility] Problem [...] of this encounter (statuses as of 08/07/2023) [facility] Problem [...] of this encounter (statuses as of 08/23/2023) [facility] Problem [...] of this encounter (statuses as of 10/07/2023) [facility] Problem [...] of this encounter (statuses as of 10/15/2023) [facility] Problem [...] of this encounter (statuses as of 10/16/2023) [facility] Problem [...] of this encounter (statuses as of 10/21/2023) [facility] Problem [...] of this encounter (statuses as of 10/22/2023) [facility] Problem [...] of this encounter (statuses as of 11/08/2023) [facility] Problem [...] of this encounter (statuses as of 11/19/2023) [facility] Problem [...] of this encounter (statuses as of 12/14/2023) [facility] Problem [...] of this encounter (statuses as of 12/17/2023) [facility] Problem [...] of this encounter (statuses as of 12/18/2023) [facility] Problem [...] of this encounter (statuses as of 12/22/2023) [facility] Author Filipe Rahman [facility] Note Date/Time March 31, 2025 9:02 am [facility] Medical Records Department [address] [place] [address] Anesthesia Postop Eval I 03/31/25 0900 MR#: [id number] Acct: [id number] Name: JENA RAMIREZ HUDSON Rep #:[id number] : 1955 70 From: Filipe Rahman PCP: Dr. Rito Camp MD Status:REG SDC Y Race: C Location: [place] [address] Anesthesia: Postop Eval I Current Vital Signs [...] Filipe Childsignkelsi Signature: Date CC: ~ Signed [facility] Work Phone: Consult note Author Gustavo Roque [facility] Note Date/Time March 31, 2025 9:38 am [facility] Medical Records Department [address] [place] [address] Anesthesia Postop Eval II 03/31/25921 MR#: [id number] Acct: [id number] Name: JENA RAMIREZ Rep #:[id number] : 1955 70 From: Gustavo Nguyen PCP: Dr. Rito Camp MD Status:REG [facility] [place] Race: C Location: [place] [address] Anesthesia Postop Eval I Sum Postop Eval [...] MD Cosigner Signature: Date CC: ~ Signed [facility] Work Phone: Consult note Author Gustavo Roque [facility] Note Date/Time March 31, 2025 9:38 am [facility] Medical Records Department [address] [place] [address] Pre-Anesthesia Evaluation 03/31/25922 MR#: [id number] Acct: [id number] Name: JENA RAMIREZ HUDSON Rep #:[id number] : 1955 70 From: Gustavo Nguyen PCP: Dr. Rito Camp MD Status: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: PONV - material worker Female Yes 03/25/25 16:02 HX of Motion [...] 03/31/25 07:10 Respiratory Assessment Respiratory Assessment - material worker: Respiratory Tract Infection Hx - material worker Hx Respiratory Tract Infection No 03/25/25 16:02 STOP Sleep Apnea STOP Sleep Apnea - material worker: STOP Sleep Apnea - material worker Hx Hypertension Yes: PER PT, CONTROLLED ON [...] Tobacco Use History Tobacco Use History - material worker: Tobacco Use History - material worker Tobacco Use Smoking Status Former smoker 03/25/25 16:02 Hx Tobacco Use No 03/25/25 16:02 Years Smoking Packs Smoked per Day Smoking Cessation Date was Yes - quit smoking within 15 03/25/25 16:02 within the last 15 years years Hx Smoking Cessation Date 02/24/16 03/25/25 16:02 Hx Smoking Cessation No 03/25/25 16:02 Counseling Hematologic Medial History Hematologic Hx - material worker: Hematologic 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 Hx of Blood Transfusion No 03/25/25 16:02 [...] confused, unrespo /Reproduction History /Reproductive History - material worker: /Reproductive Hx- material worker Hx Now No 03/25/25 16:02 Gestational Age [...] MD Cosigner Signature: Date CC: ~ Signed [facility] Work Phone: Evaluation noteNo assessment information available [facility] Work Phone: Evaluation note* Diagnosis Brittle nails- Primary Other specified disease of nail [facility] Diagnosis High serum vitamin B12- Primary High vitamin D level Hypervitaminosis D [facility] Diagnosis Cough- Primary [facility]* Diagnosis Coccyx pain- Primary Other disorder of coccyx [facility]* Diagnosis Onset Date Resolution Status Abdominal pain acute Nausea acute Partial small bowel obstruction acute [facility] Work Phone: Evaluation note* Diagnosis Partial intestinal obstruction, unspecified cause (HCC)- Primary Enlarged uterus Hypertrophy of uterus Lower abdominal pain Abdominal pain, other specified site Bruising Contusion of unspecified site [facility] Diagnosis Enlarged uterus Hypertrophy of uterus Lower abdominal pain Abdominal pain, other specified site [facility] Diagnosis Uterine leiomyoma, unspecified location- Primary [facility] Diagnosis Essential hypertension, benign [facility] Diagnosis Onset Date Resolution Status Abdominal pain resolved Nausea resolved Lung nodule acute Nicotine dependence, cigarettes, in remission acute Asthma-COPD overlap syndrome chronic [facility] Work Phone: Evaluation note* Diagnosis Psychophysiological insomnia- Primary Persistent disorder of initiating or maintaining sleep Overactive bladder Hypertonicity of bladder [facility] Diagnosis Suspected COVID-19 virus infection- Primary [facility] Diagnosis Feeling of chest tightness- Primary Other chest pain Chest heaviness Other chest pain Lab test positive for detection of COVID-19 virus SOB (shortness of breath) Shortness of breath [facility] Diagnosis Encounter for gynecological examination (general) (routine) without abnormal findings- Primary Encounter for screening mammogram for breast cancer [facility] Diagnosis Essential hypertension, benign [facility] Diagnosis Elevated blood sugar- Primary Other abnormal glucose Essential hypertension, benign Multiple thyroid nodules Nontoxic multinodular goiter Medication management Encounter for long-term (current) use of other medications GERD without esophagitis Esophageal reflux [facility] Diagnosis Medicare annual wellness visit, subsequent- [...] fracture presence- Primary [facility] Weight loss- Primary Loss of weight Ex-smoker Personal history of tobacco use, presenting hazards to health Multiple thyroid nodules Nontoxic multinodular goiter Lung nodules Other nonspecific abnormal finding of lung field Osteoporosis, unspecified osteoporosis type, unspecified pathological fracture presence [facility] Essential hypertension, benign [facility] Diagnosis Ex-smoker- Primary Personal history [...] hazards to health [facility] Diagnosis Thrombocytosis- Primary Essential thrombocythemia [facility] Diagnosis Thrombocytosis- Primary Essential thrombocythemia [facility] Diagnosis Psychophysiological insomnia Persistent disorder of initiating or maintaining sleep [facility] Diagnosis Elevated blood sugar- Primary Other abnormal glucose Essential hypertension, benign Multiple thyroid nodules Nontoxic multinodular goiter Medication management Encounter for long-term (current) use of other medications GERD without esophagitis Esophageal reflux [facility] Diagnosis Onset Date Resolution Status Vitamin D toxicity acute Osteoporosis chronic Asthma-COPD overlap syndrome chronic Smoking greater than 30 pack years chronic Abdominal pain acute Nausea acute SBO (small bowel obstruction) acute [facility] Work Phone: Evaluation note* Diagnosis Onset Date Resolution Status Vitamin D toxicity acute Osteoporosis chronic Asthma-COPD overlap syndrome chronic Smoking greater than 30 pack years chronic Abdominal pain acute Alcoholism acute Nausea acute SBO (small bowel obstruction) acute [facility] Work Phone: Evaluation note* Diagnosis S/p small bowel obstruction- Primary Personal history of other diseases of digestive system documented in this encounter [facility]* Diagnosis Leukocytosis, unspecified type- Primary documented in this encounter [facility]* Diagnosis Bronchitis- Primary Bronchitis, not specified as acute or chronic Asthma with COPD with exacerbation (HCC) Chronic obstructive asthma with exacerbation Suspected COVID-19 virus infection documented in this encounter [facility] note* Diagnosis Axillary lump, right- Primary [facility]* Diagnosis S/p small bowel obstruction Personal history of other diseases of digestive system [facility]* Diagnosis Psychophysiological insomnia Persistent disorder of initiating or maintaining sleep [facility]* Diagnosis Weight loss Loss of weight Ex-smoker Personal history of tobacco use, presenting hazards to health [facility]* Diagnosis Encounter for screening mammogram for malignant neoplasm of breast Other screening mammogram [facility] Diagnosis Osteoporosis, unspecified osteoporosis type, unspecified pathological fracture presence [facility] Diagnosis New onset of headaches after age 50 Headache [facility] Diagnosis Weight loss Loss of weight Ex-smoker Personal history of tobacco use, presenting hazards to health Lung nodules Other nonspecific abnormal finding of lung field documented in this encounter [facility]* Diagnosis Chronic bilateral low back pain with sciatica, sciatica laterality unspecified- Primary documented in this encounter [facility] note* Diagnosis Chronic bilateral low back pain with sciatica, sciatica laterality unspecified- Primary [facility] Diagnosis Chronic bilateral low back pain with sciatica, sciatica laterality unspecified- Primary documented in this encounter [facility]* Diagnosis Essential hypertension, benign Psychophysiological insomnia Persistent disorder of initiating or maintaining sleep [facility]* Diagnosis Neck pain- Primary Cervicalgia Acute pain of right shoulder documented in this encounter [facility]* Diagnosis COPD with exacerbation (HCC)- Primary Obstructive chronic bronchitis with exacerbation documented in this encounter [facility]* Diagnosis URI, acute- Primary Acute upper respiratory infections of unspecified site COPD with exacerbation (HCC) Obstructive chronic bronchitis with exacerbation URI, acute Acute upper respiratory infections of unspecified site documented in this encounter [facility] note* Diagnosis Onset Date Resolution Status Asthma-COPD overlap syndrome chronic Smoking greater than 30 pack years [facility] Work Phone: Evaluation note* Diagnosis Fall, initial encounter- Primary Pain of left clavicle Acute pain of left shoulder Pain of left clavicle Fall, initial encounter Acute pain of left shoulder documented in this encounter [facility] note* Diagnosis Fall, initial encounter- Primary Acute pain of left shoulder [facility]* Diagnosis Fall (on) (from) other stairs and steps, initial encounter- Primary Rib pain on right side Chest pain, unspecified Fall (on) (from) other stairs and steps, initial encounter Rib pain on right side Chest pain, unspecified documented in this encounter [facility] note* Diagnosis Fall, initial encounter Acute pain of left shoulder Acute pain of left shoulder- Primary documented in this encounter [facility] note* Diagnosis Fall, initial encounter Acute pain of left shoulder [facility]* Diagnosis Tendinopathy of rotator cuff, unspecified laterality- Primary [facility]* Diagnosis Pain of left clavicle Fall, initial encounter Acute pain of left shoulder [facility]* Diagnosis Fall (on) (from) other stairs and steps, initial encounter Rib pain on right side Chest pain, unspecified [facility]* Diagnosis URI, acute Acute upper respiratory infections of unspecified site documented in this encounter [facility]* Diagnosis Neck pain Cervicalgia Acute pain of right shoulder [facility]* Diagnosis Lumbar radiculopathy Thoracic or lumbosacral neuritis or radiculitis, unspecified Numbness and tingling of both legs Disturbance of skin sensation Acute bilateral low back pain with bilateral sciatica documented in this encounter [facility]* Diagnosis Pain Generalized pain documented in this encounter [facility]* Diagnosis Feeling of chest tightness Other chest pain [facility]* Diagnosis Coccyx pain Other disorder of coccyx [facility]* Diagnosis Partial intestinal obstruction, unspecified cause ([facility]) [facility]* Diagnosis Dysuria- Primary [facility]* Diagnosis Acute cystitis without hematuria- Primary Acute cystitis [facility]* Diagnosis Respiratory infection- Primary Other diseases of respiratory system, not elsewhere classified documented in this encounter [facility]* Diagnosis Pneumonia due to COVID-19 virus documented in this encounter [facility]* Diagnosis Encounter for screening mammogram for breast cancer [facility] Diagnosis Acute cough- Primary Bacterial pneumonia Bacterial pneumonia, unspecified Acute cough documented in this encounter [facility]* Diagnosis Acute cough [facility] Diagnosis Left hip pain- Primary Pain in joint, pelvic region and thigh [facility]* Diagnosis Left hip pain Pain in joint, pelvic region and thigh [facility]* Diagnosis Arnold-Chiari malformation (HCC)- Primary Spina [...] pathological fracture presence documented in this encounter [facility]* Diagnosis Pain in left hip- Primary Pain in joint, pelvic region and thigh [facility] Diagnosis Essential hypertension, benign Screening for depression [facility] Diagnosis Medicare annual wellness visit, subsequent- [...] of other medications [facility] Diagnosis Pain in left hip- Primary Pain in joint, pelvic region and thigh [facility] Diagnosis Psychophysiological insomnia Persistent disorder of initiating or maintaining sleep [facility] Diagnosis Pain in left hip- Primary Pain in joint, pelvic region and thigh Chronic bilateral low back pain with sciatica, sciatica laterality unspecified [facility] Diagnosis GERD without esophagitis- Primary Esophageal reflux Choking in adult [facility]* Diagnosis Osteoporosis, unspecified osteoporosis type, unspecified pathological fracture presence [facility]* Diagnosis Osteoporosis, unspecified osteoporosis type, unspecified pathological fracture presence- Primary [facility] Diagnosis Injury of right toe, initial encounter- Primary Psychophysiological insomnia Persistent disorder of initiating or maintaining sleep Ectatic thoracic aorta Thoracic aortic ectasia Injury of right toe, initial encounter [facility] Diagnosis Injury of right toe, initial encounter [facility] Diagnosis Psychophysiological insomnia- Primary Persistent disorder of initiating or maintaining sleep Easy bruising Other symptoms involving skin and integumentary tissues Lumbar radiculopathy Thoracic or lumbosacral neuritis or radiculitis, unspecified documented in this encounter [facility]* Diagnosis Lumbar radiculopathy- Primary Thoracic or lumbosacral neuritis or radiculitis, unspecified Lumbar back pain Lumbago Radiculopathy of lumbar region Thoracic or lumbosacral neuritis or radiculitis, unspecified documented in this encounter [facility]* Diagnosis Lumbar radiculopathy- Primary Thoracic or lumbosacral neuritis or radiculitis, unspecified Lumbar back pain Lumbago Radiculopathy of lumbar region Thoracic or lumbosacral neuritis or radiculitis, unspecified documented in this encounter [facility] note* Diagnosis Injury of right wrist, initial encounter- Primary Injury of right wrist, initial encounter documented in this encounter [facility]* Diagnosis Injury of right wrist, initial encounter [facility]* Speech Therapy Referral Location: None Selected [facility] [employer] Work Phone: [facility] for referral (narrative)* Diagnostic Procedure Only (Urgent) - Closed Specialty Diagnoses / Procedures Referred By Contac t Referred To Contact XR IMAGING Diagnoses Coccyx pain Procedures XR SACRUM/COCCYX 3V AP/LAT RADEX SACRUM & COCCYX MINIMUM 2 VIEWS Bernard Elliott MD [address] [place] [address] X[facility] Imaging Referral ID Status Reason Start Date Expiration Date V isits Requested Visits Authorized [id number] Closed Auto-Generate d Referral 03/14/2022 04/13/2023 1 1 [facility] for referral (narrative)* Diagnostic Procedure Only (Routine) - Authorized Specialty Diagnoses / Procedures Referred By Contac t Referred To Contact US IMAGING Diagnoses Enlarged uterus Lower abdominal pain Procedures US FEMALE PELVIS TRANSVAG US TRANSVAGINAL Shanita Green PA-C [address] [place] [address] [facility] Referral ID Status Reason Start Date Expiration Date Visits Requested Visits Authorized [id number] Authorized Auto-Generat ed Referral 03/23/2022 04/22/2023 1 1 * Diagnostic Procedure Only (Routine) - Authorized Specialty Diagnoses / Procedures Referred By Contac t Referred To Contact US IMAGING Diagnoses Enlarged uterus Lower abdominal pain Procedures US FEMALE PELVIS TRANSABD COMPLETE US PELVIC NONOBSTETRIC REAL-TIME IMAGE COMPLETE Shanita Green PA-C [address] [place] [address] Us Imaging Referral ID Status Reason Start Date Expiration Date Visits Requested Visits Authorized [id number] Authorized Auto-Generat ed Referral 03/23/2022 04/22/2023 1 1 * Diagnostic Procedure Only (Routine) - Closed Specialty Diagnoses / Procedures Referred By Contac t Referred To Contact XR IMAGING Diagnoses Partial intestinal obstruction, unspecified cause (HCC) Procedures XR ABDOMEN 1V SUPINE RADIOLOGIC EXAM ABDOMEN 1 VIEW Shanita Green PA-C [address] [place] [address] Xr Imaging Referral ID Status Reason Start Date Expiration Date V isits Requested Visits Authorized [id number] Closed Auto-Generate d Referral 03/23/2022 04/22/2023 1 1 [facility] for referral (narrative)* Diagnostic Procedure Only (Routine) - Closed Specialty Diagnoses / Procedures Referred By Contac t Referred To Contact US IMAGING Diagnoses Enlarged uterus Lower abdominal pain Procedures US FEMALE PELVIS TRANSVAG US TRANSVAGINAL Shanita Green PA-C [address] [place] [address] Us Imaging Referral ID Status Reason Start Date Expiration Date V isits Requested Visits Authorized [id number] Closed Auto-Generate d Referral 03/23/2022 04/22/2023 1 1 [facility] for referral (narrative)* Outpatient Procedure (Routine) - Closed Specialty Diagnoses / Procedures Referred By Castillo t Referred To Contact [facility] Diagnoses Feeling of chest tightness Chest heaviness SOB (shortness of breath) Procedures ECG COMPLETE ECG ROUTINE ECG W/LEAST 12 LDS W/I&R RyanlogSweetie garcia APRN.CNP [address] [place] [address] [facility] [address] [place] [address] Referral ID Status Reason Start Date Expiration Date V isits Requested Visits Authorized [id number] Closed Auto-Generate d Referral 07/09/2022 07/09/2023 1 1 [facility] for referral (narrative)* Diagnostic Procedure Only (Routine) - Pending Review Specialty Diagnoses / Procedures Referred By Castillo argueta Referred To Contact BR IMAGING Diagnoses Encounter for gynecological examination (general) (routine) without abnormal findings Encounter for screening mammogram for breast cancer Procedures MARCIANO SCREENING SCREENING MAMMOGRAPHY BI 2-VIEW [employer] [employer] Ashleigh Santiago APRN.CNP [address] [place] [address] [facility] [address] [place] [address] Referral ID Status Reason Start Date Expiration Date Visits Requested Visits Authorized [id number] Pending Review Auto-Generat ed Referral 2 08/30/2023 1 1 [facility] for referral (narrative)* Diagnostic Procedure Only (Routine) - Closed Specialty Diagnoses / Procedures Referred By Castillo t Referred To Contact US IMAGING Diagnoses Weight loss Ex-smoker Procedures US ABDOMEN COMPLETE US ABDOMINAL REAL TIME W/IMAGE DOCUMENTATION Rito Camp MD [address] [place] [address] [place] [address] Referral ID Status Reason Start Date Expiration Date V isits Requested Visits Authorized [id number] Closed Auto-Generate d Referral 11/19/2022 12/19/2023 1 1 [facility] for referral (narrative)* Diagnostic Procedure Only (Routine) - Closed Specialty Diagnoses / Procedures Referred By Contac t Referred To Contact [facility] Diagnoses Encounter for screening mammogram for malignant neoplasm of breast Procedures MARCIANO SCREENING SCREENING MAMMOGRAPHY BI 2-[employer] Ashleigh Santiago APRN.COMPOUNDING [employer] FINISHING SUPERVISOR [address] [place] [address] [facility] [address] [place] [address] Referral ID Status Reason Start Date Expiration Date V isits Requested Visits Authorized [id number] Closed Auto-Generate d Referral 05/15/2022 06/14/2023 1 1 [facility] for referral (narrative)* Diagnostic Procedure Only (Routine) - Closed Specialty Diagnoses / Procedures Referred By Contac t Referred To Contact XR IMAGING Diagnoses Neck pain Acute pain of right shoulder Procedures XR SHOULDER GENERAL 3V OR MORE AP/TRUE AP/OTHER RIGHT RADEX SHOULDER COMPLETE MINIMUM 2 VIEWS Shanita Green PA-C [address] [place] [address] [place] [address] Referral ID Status Reason Start Date Expiration Date V isits Requested Visits Authorized [id number] Closed Auto-Generate d Referral 10/15/2023 11/13/2024 1 1 * Diagnostic Procedure Only (Routine) - Closed Specialty Diagnoses / Procedures Referred By Contac t Referred To Contact XR IMAGING Diagnoses Neck pain Acute pain of right shoulder Procedures XR CERV OTHER 4V AP/LAT/OBL RADEX SPINE CERVICAL 4 OR 5 VIEWS Shanita Green PA-C [address] [place] [address] [place] [address] Referral ID Status Reason Start Date Expiration Date V isits Requested Visits Authorized [id number] Closed Auto-Generate d Referral 10/15/2023 11/13/2024 1 1 [facility] for referral (narrative)* Diagnostic Procedure Only (Urgent) - Closed Specialty Diagnoses / Procedures Referred By Contac t Referred To Contact XR IMAGING Diagnoses Acute pain of left shoulder Fall, initial encounter Procedures XR SHOULDER GENERAL 3V OR MORE AP/TRUE AP/OTHER LEFT RADEX SHOULDER COMPLETE MINIMUM 2 VIEWS Podlogar, JOI PittN.COMPOUNDING AND FINISHING SUPERVISOR [address] [place] [address] [place] [address] Referral ID Status Reason Start Date Expiration Date V isits Requested Visits Authorized [id number] Closed Auto-Generate d Referral 03/18/2024 04/17/2025 1 1 * Diagnostic Procedure Only (Urgent) - Closed Specialty Diagnoses / Procedures Referred By Contac t Referred To Contact XR IMAGING Diagnoses Pain of left clavicle Fall, initial encounter Procedures XR CLAVICLE 2V LEFT RADEX CLAVICLE COMPLETE Podlogar, JOI PittN.COMPOUNDING AND FINISHING SUPERVISOR [address] [place] [address] [place] [address] Referral ID Status Reason Start Date Expiration Date V isits Requested Visits Authorized [id number] Closed Auto-Generate d Referral 03/18/2024 04/17/2025 1 1 [facility] for referral (narrative)* Diagnostic Procedure Only (Urgent) - Closed Specialty Diagnoses / Procedures Referred By Contac t Referred To Contact XR IMAGING Diagnoses Acute pain of left shoulder Fall, initial encounter Procedures XR SHOULDER GENERAL 3V OR MORE AP/TRUE AP/OTHER LEFT RADEX SHOULDER COMPLETE MINIMUM 2 VIEWS Podlogar, ALAN Pitt.COMPOUNDING AND FINISHING SUPERVISOR [address] [place] [address] [place] [address] Referral ID Status Reason Start Date Expiration Date V isits Requested Visits Authorized [id number] Closed Auto-Generate d Referral 03/18/2024 04/17/2025 1 1 * Diagnostic Procedure Only (Urgent) - Closed Specialty Diagnoses / Procedures Referred By Contac t Referred To Contact XR IMAGING Diagnoses Pain of left clavicle Fall, initial encounter Procedures XR CLAVICLE 2V LEFT RADEX CLAVICLE COMPLETE PodlogSweetie garcia APRN.CNP [address] [place] [address] [place] [address] Referral ID Status Reason Start Date Expiration Date V isits Requested Visits Authorized [id number] Closed Auto-Generate d Referral 03/18/2024 04/17/2025 1 1 [facility] for referral (narrative)* Diagnostic Procedure Only (Routine) - Closed Specialty Diagnoses / Procedures Referred By Contac t Referred To Contact XR IMAGING Diagnoses Neck pain Acute pain of right shoulder Procedures XR SHOULDER GENERAL 3V OR MORE AP/TRUE AP/OTHER RIGHT RADEX SHOULDER COMPLETE MINIMUM 2 VIEWS Shanita Green PA-C [address] [place] [address] [place] [address] Referral ID Status Reason Start Date Expiration Date V isits Requested Visits Authorized [id number] Closed Auto-Generate d Referral 10/15/2023 11/13/2024 1 1 * Diagnostic Procedure Only (Routine) - Closed Specialty Diagnoses / Procedures Referred By Contac t Referred To Contact XR IMAGING Diagnoses Neck pain Acute pain of right shoulder Procedures XR CERV OTHER 4V AP/LAT/OBL RADEX SPINE CERVICAL 4 OR 5 VIEWS Shanita Green PA-C [address] [place] [address] [place] [address] Referral ID Status Reason Start Date Expiration Date V isits Requested Visits Authorized [id number] Closed Auto-Generate d Referral 10/15/2023 11/13/2024 1 1 [facility] for referral (narrative)* Diagnostic Procedure Only (Routine) - Closed Specialty Diagnoses / Procedures Referred By Contac t Referred To Contact XR IMAGING Diagnoses Lumbar radiculopathy Numbness and tingling of both legs Procedures XR HIP BILATERAL 5V PEL/AP/LAT EACH HIP RADEX HIPS BILATERAL WITH PELVIS MINIMUM 5 VIEWS Alex Brown APRN.COMPOUNDING AND FINISHING SUPERVISOR [address] [place] [address] [place] [address] Referral ID Status Reason Start Date Expiration Date V isits Requested Visits Authorized [id number] Closed Auto-Generate d Referral 08/15/2023 09/13/2024 1 1 * Diagnostic Procedure Only (Routine) - Closed Specialty Diagnoses / Procedures Referred By Contac t Referred To Contact XR IMAGING Diagnoses Lumbar radiculopathy Numbness and tingling of both legs Acute bilateral low back pain with bilateral sciatica Procedures XR LUMBAR MOTION 4V AP/LAT/ FLEX/EXT RADEX SPINE LUMBOSACRAL MINIMUM 4 VIEWS Alex Brown APRN.COMPOUNDING AND FINISHING SUPERVISOR [address] [place] [address] [place] [address] Referral ID Status Reason Start Date Expiration Date V isits Requested Visits Authorized [id number] Closed Auto-Generate d Referral 08/15/2023 09/13/2024 1 1 [facility] for referral (narrative)* Diagnostic Procedure Only (Urgent) - Closed Specialty Diagnoses / Procedures Referred By Contac t Referred To Contact XR IMAGING Diagnoses Pain Procedures XR WRIST INJURY 4V PA/LAT/OBL/SCAPH RIGHT RADEX WRIST COMPLETE MINIMUM 3 VIEWS Shanna Newton APRN.COMPOUNDING AND FINISHING SUPERVISOR [address] [place] [address] [place] [address] Referral ID Status Reason Start Date Expiration Date V isits Requested Visits Authorized [id number] Closed Auto-Generate d Referral 12/18/2022 01/17/2024 1 1 [facility] for referral (narrative)* Diagnostic Procedure Only (Urgent) - Closed Specialty Diagnoses / Procedures Referred By Contac t Referred To Contact XR IMAGING Diagnoses Coccyx pain Procedures XR SACRUM/COCCYX 3V AP/LAT RADEX SACRUM & COCCYX MINIMUM 2 VIEWS Bernard Elliott MD [address] [place] [id number] [place] [address] Referral ID Status Reason Start Date Expiration Date V isits Requested Visits Authorized [id number] Closed Auto-Generate d Referral 03/14/2022 04/13/2023 1 1 [facility] for referral (narrative)* Diagnostic Procedure Only (Routine) - Closed Specialty Diagnoses / Procedures Referred By Contac t Referred To Contact XR IMAGING Diagnoses Partial intestinal obstruction, unspecified cause (HCC) Procedures XR ABDOMEN 1V SUPINE RADIOLOGIC EXAM ABDOMEN 1 VIEW Shanita Green PA-C [address] [place] [address] [place] [address] Referral ID Status Reason Start Date Expiration Date V isits Requested Visits Authorized [id number] Closed Auto-Generate d Referral 03/23/2022 04/22/2023 1 1 [facility] for referral (narrative)* Diagnostic Procedure Only (Routine) - Closed Specialty Diagnoses / Procedures Referred By Contac t Referred To Contact XR IMAGING Diagnoses Left hip pain Procedures XR HIP GENERAL 3V PELV/AP/LAT LEFT RADEX HIP UNILATERAL WITH PELVIS 2-3 VIEWS Alex Brown APRN.CNP [address] [place] [address] [place] [address] Referral ID Status Reason Start Date Expiration Date V isits Requested Visits Authorized [id number] Closed Auto-Generate d Referral 08/03/2024 09/02/2025 1 1 [facility] for referral (narrative)* Diagnostic Procedure Only (Routine) - Authorized Specialty Diagnoses / Procedures Referred By Contac t Referred To Contact XR IMAGING Diagnoses Osteoporosis, unspecified osteoporosis type, unspecified pathological fracture presence Procedures DXA-AXIAL SKELETON DXA BONE DENSITY STUDY SITES AXIAL Rito Tripp MD [address] [place] [address] [place] [address] Referral ID Status Reason Start Date Expiration Date Visits Requested Visits Authorized [id number] Authorized Auto-Generat ed Referral 10/01/2024 10/31/2025 1 1 [facility] for referral (narrative)No reason for referral information availableW[facility] N[facility]* Diagnostic Procedure Only (Routine) - Closed Specialty Diagnoses / Procedures Referred By Contac t Referred To Contact BR IMAGING Diagnoses Encounter for screening mammogram for malignant neoplasm of breast Procedures MARCIANO SCREENING SCREENING MAMMOGRAPHY BI 2-VIEW BREAST INC CAD Ashleigh Negrete APRN.COMPOUNDING AND FINISHING SUPERVISOR [address] [place] [address] [facility] [address] [place] [address] Referral ID Status Reason Start Date Expiration Date V isits Requested Visits Authorized [id number] Closed Auto-Generate d Referral 05/15/2022 06/14/2023 1 1 [facility] for visit Narrative* Diagnostic Procedure Only (Urgent) - Closed Specialty Diagnoses / Procedures Referred By Contac t Referred To Contact XR IMAGING Diagnoses Acute pain of left shoulder Fall, initial encounter Procedures XR SHOULDER GENERAL 3V OR MORE AP/TRUE AP/OTHER LEFT RADEX SHOULDER COMPLETE MINIMUM 2 VIEWS PodlogarSweetie APRN.COMPOUNDING AND FINISHING SUPERVISOR [address] [place] [address] [place] [address] Referral ID Status Reason Start Date Expiration Date V isits Requested Visits Authorized [id number] Closed Auto-Generate d Referral 03/18/2024 04/17/2025 1 1 [facility] for visit Narrative* Diagnostic Procedure Only (Routine) - Closed Specialty Diagnoses / Procedures Referred By Contac t Referred To Contact XR IMAGING Diagnoses Neck pain Acute pain of right shoulder Procedures XR SHOULDER GENERAL 3V OR MORE AP/TRUE AP/OTHER RIGHT RADEX SHOULDER COMPLETE MINIMUM 2 VIEWS Shanita Green PA-C [address] [place] [address] [place] [address] Referral ID Status Reason Start Date Expiration Date V isits Requested Visits Authorized [id number] Closed Auto-Generate d Referral 10/15/2023 11/13/2024 1 1 [facility] for visit Narrative* Diagnostic Procedure Only (Routine) - Closed Specialty Diagnoses / Procedures Referred By Contac t Referred To Contact XR IMAGING Diagnoses Lumbar radiculopathy Numbness and tingling of both legs Procedures XR PELVIS 3V AP/INLET/OUTLET RADIOLOGIC EXAM PELVIS COMPL MINIMUM 3 VIEWS Alex Brown, ALAN.COMPOUNDING AND FINISHING SUPERVISOR [address] [place] [address] [place] [address] Referral ID Status Reason Start Date Expiration Date V isits Requested Visits Authorized [id number] Closed Auto-Generate d Referral 08/15/2023 09/13/2024 1 1 [facility] for visit Narrative* Diagnostic Procedure Only (Urgent) - Closed Specialty Diagnoses / Procedures Referred By Contac t Referred To Contact XR IMAGING Diagnoses Pain Procedures XR WRIST INJURY 4V PA/LAT/OBL/SCAPH RIGHT RADEX WRIST COMPLETE MINIMUM 3 VIEWS Shanna Newton, COLD STRIP FEEDER.COMPOUNDING AND FINISHING SUPERVISOR [address] [place] [address] [place] [address] Referral ID Status Reason Start Date Expiration Date V isits Requested Visits Authorized [id number] Closed Auto-Generate d Referral 12/18/2022 01/17/2024 1 1 [facility] for visit Narrative* Diagnostic Procedure Only (Urgent) - Closed Specialty Diagnoses / Procedures Referred By Contac t Referred To Contact XR IMAGING Diagnoses Coccyx pain Procedures XR SACRUM/COCCYX 3V AP/LAT RADEX SACRUM & COCCYX MINIMUM 2 VIEWS Bernard Elliott MD [address] [place] [address] [place] [address] Referral ID Status Reason Start Date Expiration Date V isits Requested Visits Authorized [id number] Closed Auto-Generate d Referral 03/14/2022 04/13/2023 1 1 [facility] for visit Narrative* Diagnostic Procedure Only (Routine) - Closed Specialty Diagnoses / Procedures Referred By Contac t Referred To Contact XR IMAGING Diagnoses Partial intestinal obstruction, unspecified cause (HCC) Procedures XR ABDOMEN 1V SUPINE RADIOLOGIC EXAM ABDOMEN 1 VIEW Shanita Green PA-C [address] [place] [address] [place] [address] Referral ID Status Reason Start Date Expiration Date V isits Requested Visits Authorized [id number] Closed Auto-Generate d Referral 03/23/2022 04/22/2023 1 1 [facility] for visit Narrative* Diagnostic Procedure Only (Routine) - Closed Specialty Diagnoses / Procedures Referred By Contac t Referred To Contact BR IMAGING Diagnoses Encounter for screening mammogram for breast cancer Procedures MARCIANO SCREENING SCREENING MAMMOGRAPHY BI 2-VIEW BREAST INC CAD Rito Camp MD [address] [place] [address] Br Imaging [address] [place] [address] Referral ID Status Reason Start Date Expiration Date V isits Requested Visits Authorized [id number] Closed Auto-Generate d Referral 06/09/2024 07/09/2025 1 1 [facility] for visit Narrative* Diagnostic Procedure Only (Routine) - Closed Specialty Diagnoses / Procedures Referred By Contac t Referred To Contact XR IMAGING Diagnoses Left hip pain Procedures XR HIP GENERAL 3V PELV/AP/LAT LEFT RADEX HIP UNILATERAL WITH PELVIS 2-3 VIEWS Alex Brown APRN.COMPOUNDING AND FINISHING SUPERVISOR [address] [place] [address] [place] [address] Referral ID Status Reason Start Date Expiration Date V isits Requested Visits Authorized [id number] Closed Auto-Generate d Referral 08/03/2024 09/02/2025 1 1 [facility] for visit Narrative* Diagnostic Procedure Only (Routine) - Closed Specialty Diagnoses / Procedures Referred By Contac t Referred To Contact XR IMAGING Diagnoses Osteoporosis, unspecified osteoporosis type, unspecified pathological fracture presence Procedures DXA-AXIAL SKELETON DXA BONE DENSITY STUDY 1/> SITES AXIAL Rito Tripp MD [address] [place] [address] Phone: tel: fax: [place] [address] Referral ID Status Reason Start Date Expiration Date V isits Requested Visits Authorized [id number] Closed Auto-Generate d Referral 10/01/2024 10/31/2025 1 1 [facility] for visit Narrative* Diagnostic Procedure Only (Urgent) - Closed Specialty Diagnoses / Procedures Referred By Contac t Referred To Contact XR IMAGING Diagnoses Injury of right toe, initial encounter Procedures XR FOOT GENERAL 3V AP/LAT/OBL RIGHT XR FOOT GENERAL 3V AP/LAT/OBL RIGHT RADEX FOOT COMPLETE MINIMUM 3 VIEWS Shanita Green PA-C [address] [place] [address] Phone: tel: fax: [place] [address] Referral ID Status Reason Start Date Expiration Date V isits Requested Visits Authorized [id number] Closed Auto-Generate d Referral 01/05/2025 02/04/2026 1 1 [facility] for visit Narrative* Diagnostic Procedure Only (Urgent) - Closed Specialty Diagnoses / Procedures Referred By Contac t Referred To Contact XR IMAGING Diagnoses Injury of right wrist, initial encounter Procedures XR WRIST GENERAL 3V PA/LAT/OBL RIGHT RADEX WRIST COMPLETE MINIMUM 3 VIEWS Ky Shaver, COLD STRIP FEEDER.COMPOUNDING AND FINISHING SUPERVISOR [address] [place] [address] Phone: tel: fax: [place] [address] Referral ID Status Reason Start Date Expiration Date V isits Requested Visits Authorized [id number] Closed Auto-Generate d Referral 05/16/2025 06/15/2026 1 1 [facility] Advance Directives No Advanced Directives Records FoundDocuments on File Type Date Recorded 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 Advance Directive(s) 01/21/2018 12:19 PM Advance Directive(s) 06/27/2016 9:10 AM Advance Directive(s) 06/19/2016 1:09 PM Advance Directive(s) 12/12/2011 12:00 AM Advance Directive Response Recorded Date/ Time Advance Directives Yes July 4:55pm Living Will Yes February 28, 2021 6:17pm Power of Drum Maker Yes February 28 6:17pm Documents on File Type Date Recorded 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 Advance Directive(s) 01/21/2018 12:19 PM Advance Directive(s) 06/27/2016 9:10 AM Advance Directive(s) 06/19/2016 1:09 PM Advance Directive(s) 12/12/2011 12:00 AM Advance Directive Response Recorded Date/ Time Name of Medical Power of Drum Maker unsure March 17, 2022 6:05pm Advance Directives Yes July 4:55pm Living Will Yes March 17, 2022 6:05pm Power of Drum Maker Yes March 17 6:05pm Advance Directive Response Recorded Date/ Time Name of Medical Power of Drum Maker unsure March 17, 2022 6:05pm Advance Directives Yes July 4:55pm Living Will Yes March 17, 2022 10:51pm Power of Drum Maker No March 17 10:51pm Documents on File Type Date Recorded 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 Advance Directive(s) 01/21/2018 12:19 PM Advance Directive(s) 12/12/2011 Documents on File Type Date Recorded 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 Advance Directive(s) 01/21/2018 12:19 PM Advance Directive(s) 12/12/2011 Advance Directive Response Recorded Date/ Time Advance Directives Yes July 4:55pm Living Will No May 31, 2023 9:50pm Power of Drum Maker No May 9:50pm Advance Directive Response Recorded Date/ Time Name of Medical Power of Drum Maker Reina Watson June 01, 2023 2:55am Advance Directives Yes July 4:55pm Living Will Yes June 01, 2023 8:11am Power of Drum Maker Yes May 8:11am Advance Directive Response Recorded Date/ Time Advance Directives Yes July 4:55pm Living Will Yes June 01, 2023 8:11am Power of Drum Maker Yes May 8:11am Advance Directive Response Recorded Date/ Time Advance Directives Yes July 4:55pm Advance Directive Response Recorded Date/ Time Do you have a Healthcare Power of Drum Maker? Yes March 25, 2025 4:02pm Advance Directives [...] unspecified location Procedures CONSULT TO GYNECOLOGY OFFICE/OUTPATIENT [facility] 60-74 MINUTES Shanita Green PA-C [address] [place] [address] Referral ID Status Reason Start Date Expiration Date Visits Requested Visits Authorized [id number] Pending Review PCP Requested Referral Auto-Generate d Referral 03/30/2022 03/30/2023 1 1 Specialty Diagnoses / Procedures Referred By Castillo argueta Referred To Contact Urology Diagnoses Overactive bladder Procedures CONSULT TO UROLOGY OFFICE/OUTPATIENT [facility] 60-74 MINUTES Shanita Green PA-C [address] [place] [address] Referral ID Status Reason Start Date Expiration Date Visits Requested Visits Authorized [id number] Pending Review PCP Requested Referral 05/28/2022 05/28/2023 1 1 Specialty Diagnoses / Procedures Referred By Contac t Referred To Contact CT IMAGING Diagnoses Weight loss Ex-smoker Lung nodules Procedures CT CHEST WO IVCON DIAGNOSTIC COMPUTED TOMOGRAPHY THORAX W/O CNTRST Rito Camp MD [address] [place] [address] [address] Referral ID Status Reason Start Date Expiration Date Visits Requested Visits Authorized [id number] Authorized Auto-Generat ed Referral 11/19/2022 12/19/2023 1 1 Specialty Diagnoses / Procedures Referred By Contac t Referred To Contact Endocrinology Diagnoses Osteoporosis, unspecified osteoporosis type, unspecified pathological fracture presence Procedures CONSULT TO ENDOCRINOLOGY OFFICE/OUTPATIENT NEW [facility] 60-74 MINUTES Rito Camp MD [address] [place] [address] Referral ID Status Reason Start Date Expiration Date Visits Requested Visits Authorized [id number] Pending Review PCP Requested Referral 11/19/2022 11/19/2023 1 1 Specialty Diagnoses / Procedures Referred By Contac t Referred To Contact US IMAGING Diagnoses Weight loss Ex-smoker Procedures US ABDOMEN COMPLETE US ABDOMINAL REAL TIME W/IMAGE DOCUMENTATION Rito Camp MD [address] [place] [address] Us Imaging Referral ID Status Reason Start Date Expiration Date Visits Requested Visits Authorized [id number] Authorized Auto-Generat ed Referral 11/19/2022 12/19/2023 1 1 Specialty Diagnoses / Procedures Referred By Contac t Referred To Contact CT IMAGING Diagnoses Ex-smoker Weight loss, unintentional Procedures CT ABD/PEL W IVCON CT ABD & PELVIS W/CONTRAST Rito Camp MD [address] [place] [address] Imaging Referral ID Status Reason Start Date Expiration Date Visits Requested Visits Authorized [id number] Authorized Auto-Generat ed Referral 12/04/2022 01/03/2024 1 1 Specialty Diagnoses / Procedures Referred By Contac t Referred To Contact CT IMAGING Diagnoses New onset of headaches after age 51 Procedures CTA HEAD W IVCON CT ANGIOGRAPHY HEAD W/CONTRAST/NONCONTRAST Alex Brown APRN.COMPOUNDING AND FINISHING SUPERVISOR [address] [place] [address] Referral ID Status Reason Start Date Expiration Date Visits Requested Visits Authorized [id number] Authorized Auto-Generat ed Referral 02/15/2023 03/16/2024 1 1 Specialty Diagnoses / Procedures Referred By Contac t Referred To Contact Allergy Diagnoses Runny nose Procedures CONSULT TO ALLERGY/IMMUNOLOGY OFFICE/OUTPATIENT [facility] 60-74 MINUTES Alex Brown APRN.COMPOUNDING AND FINISHING SUPERVISOR [address] [place] [address] Referral ID Status Reason Start Date Expiration Date Visits Requested Visits Authorized [id number] Pending Review PCP Requested Referral 02/15/2023 02/15/2024 1 1 Specialty Diagnoses / Procedures Referred By Contac t Referred To Contact General Surgery Diagnoses S/p small bowel obstruction Procedures CONSULT TO GENERAL SURGERY OFFICE/OUTPATIENT [facility] 60-74 MINUTES Alex Brown APRN.COMPOUNDING AND FINISHING SUPERVISOR [address] [place] [address] Referral ID Status Reason Start Date Expiration Date Visits Requested Visits Authorized [id number] Pending Review PCP Requested Referral 06/04/2023 06/03/2024 1 1 Specialty Diagnoses / Procedures Referred By Contac t Referred To Contact General Surgery Diagnoses Axillary lump, right Procedures CONSULT TO GENERAL SURGERY OFFICE/OUTPATIENT [facility] 60-74 MINUTES Shanita Green PA-C [address] [place] [id number] Referral ID Status Reason Start Date Expiration Date Visits Requested Visits Authorized [id number] Pending Review PCP Requested Referral 06/10/2024 1 1 Specialty Diagnoses / Procedures Referred By Contac t Referred To Contact CT IMAGING Diagnoses New onset of headaches after age 51 Procedures CTA HEAD W IVCON CT ANGIOGRAPHY HEAD W/CONTRAST/NONCONTRAST Alex Brown APRN.COMPOUNDING AND FINISHING SUPERVISOR [address] [place] [address] [address] [place] [address] Referral ID Status Reason Start Date Expiration Date V isits Requested Visits Authorized [id number] Closed Auto-Generate d Referral 02/15/2023 03/16/2024 1 1 Specialty Diagnoses / Procedures Referred By Contac t Referred To Contact CT IMAGING Diagnoses Weight loss Ex-smoker Lung nodules Procedures CT CHEST WO IVCON DIAGNOSTIC COMPUTED TOMOGRAPHY THORAX W/O CNTRST Rito Camp MD [address] [place] [address] [place] [address] Referral ID Status Reason Start Date Expiration Date V isits Requested Visits Authorized [id number] Closed Auto-Generate d Referral 11/19/2022 12/19/2023 1 1 Specialty Diagnoses / Procedures Referred By Contac t Referred To Contact Orthopedics Diagnoses Fall, initial encounter Acute pain of left shoulder Procedures CONSULT TO ORTHOPAEDICS OFFICE/OUTPATIENT [facility] 60 MINUTES Alex Brown, COLD STRIP FEEDER.COMPOUNDING AND FINISHING SUPERVISOR [address] [place], [place] [phone] Referral ID Status Reason Start Date Expiration Date Visits Requested Visits Authorized [id number] Authorized PCP Requested Referral 03/26/2024 03/26/2025 1 1 Specialty Diagnoses / Procedures Referred By Contac t Referred To Contact MR IMAGING Diagnoses Fall, initial encounter Acute pain of left shoulder Procedures MRI SHOULDER WO/W IVCON LEFT MRI ANY JT UPPER EXTREMITY W/O & W/CONTR Alex Lora, COLD STRIP FEEDER.COMPOUNDING AND FINISHING SUPERVISOR [address] [place] [address] [place] [address] Referral ID Status Reason Start Date Expiration Date Visits Requested Visits Authorized [id number] New Request Auto-Generat ed Referral 03/26/2024 04/25/2025 1 1 Specialty Diagnoses / Procedures Referred By Contac t Referred To Contact MR IMAGING Diagnoses Acute pain of left shoulder Procedures MRI SHOULDER WO IVCON LEFT MRI ANY JT UPPER EXTREMITY W/O CONTRAST Alex Lora, COLD STRIP FEEDER.COMPOUNDING AND FINISHING SUPERVISOR [facility] [place] [address] [place] [address] Referral ID Status Reason Start Date Expiration Date V isits Requested Visits Authorized [id number] Closed Auto-Generate d Referral 04/24/2024 07/22/2024 1 1 Specialty Diagnoses / Procedures Referred By Contac t Referred To Contact [facility] Diagnoses Tendinopathy of rotator cuff, unspecified laterality Procedures CONSULT TO PHYSICAL THERAPY PHYSICAL THERAPY EVALUATION HIGH COMPLEX 45 MINS Alex Brown APRN.COMPOUNDING AND FINISHING SUPERVISOR [address] [place] [address] [facility] [address] [address] Referral ID Status Reason Start Date Expiration Date Visits Requested Visits Authorized [id number] Pending Review Auto-Generat ed Referral 04/27/2024 04/27/2025 1 1 Specialty Diagnoses / Procedures Referred By Contac t Referred To Contact [facility] Diagnoses Left hip pain Procedures CONSULT TO PHYSICAL THERAPY PHYSICAL THERAPY EVALUATION HIGH COMPLEX 45 MINS Shanita Green PA-C [address] [place] [address] [facility] [address] [address] Referral ID Status Reason Start Date Expiration Date V isits Requested Visits Authorized [id number] Closed Auto-Generate d Referral 08/05/2024 08/05/2025 1 [...] or prosecute any alcohol or drug abuse patient.[facility] the event this information is protected by the Federal Confidentiality of Alcohol and Drug Abuse Patient Records regulations: The Federal rules restrict any use of the information to criminally investigate or prosecute any alcohol or drug abuse patient.[facility] the event this information is protected by the Federal Confidentiality of Alcohol and Drug Abuse Patient Records regulations: The Federal rules restrict any use of the information to criminally investigate or prosecute any alcohol or drug abuse patient.[facility] the event this information is protected by the Federal Confidentiality of Alcohol and Drug Abuse Patient Records regulations: The Federal rules restrict any use of the information to criminally investigate or prosecute any alcohol or drug abuse patient.[facility] the event this information is protected by the Federal Confidentiality of Alcohol and Drug Abuse Patient Records regulations: The Federal rules restrict any use of the information to criminally investigate or prosecute any alcohol or drug abuse patient.[facility] the event this information is protected by the Federal Confidentiality of Alcohol and Drug Abuse Patient Records regulations: The Federal rules restrict any use of the information to criminally investigate or prosecute any alcohol or drug abuse patient.[facility] the event this information is protected by the Federal Confidentiality of Alcohol and Drug Abuse Patient Records regulations: The Federal rules restrict any use of the information to criminally investigate or prosecute any alcohol or drug abuse patient.[facility] the event this information is protected by the Federal Confidentiality of Alcohol and Drug Abuse Patient Records regulations: The Federal rules restrict any use of the information to criminally investigate or prosecute any alcohol or drug abuse patient.[facility] the event this information is protected by the Federal Confidentiality of Alcohol and Drug Abuse Patient Records regulations: The Federal rules restrict any use of the information to criminally investigate or prosecute any alcohol or drug abuse patient.[facility] the event this information is protected by the Federal Confidentiality of Alcohol and Drug Abuse Patient Records regulations: The Federal rules restrict any use of the information to criminally investigate or prosecute any alcohol or drug abuse patient.[facility] the event this information is protected by the Federal Confidentiality of Alcohol and Drug Abuse Patient Records regulations: The Federal rules restrict any use of the information to criminally investigate or prosecute any alcohol or drug abuse patient.[facility] the event this information is protected by the Federal Confidentiality of Alcohol and Drug Abuse Patient Records regulations: The Federal rules restrict any use of the information to criminally investigate or prosecute any alcohol or drug abuse patient.[facility] the event this information is protected by the Federal Confidentiality of Alcohol and Drug Abuse Patient Records regulations: The Federal rules restrict any use of the information to criminally investigate or prosecute any alcohol or drug abuse patient.[facility] the event this information is protected by the Federal Confidentiality of Alcohol and Drug Abuse Patient Records regulations: The Federal rules restrict any use of the information to criminally investigate or prosecute any alcohol or drug abuse patient.[facility]In the event this information is protected by the Federal Confidentiality of Alcohol and Drug Abuse Patient Records regulations: The Federal rules restrict any use of the information to criminally investigate or prosecute any alcohol or drug abuse patient.[facility] HospitalIn the event this information is protected by the Federal Confidentiality of Alcohol and Drug Abuse Patient Records regulations: The Federal rules restrict any use of the information to criminally investigate or prosecute any alcohol or drug abuse patient.[facility]In the event this information is protected by the Federal Confidentiality of Alcohol and Drug Abuse Patient Records regulations: The Federal rules restrict any use of the information to criminally investigate or prosecute any alcohol or drug abuse patient.[facility]In the event this information is protected by the Federal Confidentiality of Alcohol and Drug Abuse Patient Records regulations: The Federal rules restrict any use of the information to criminally investigate or prosecute any alcohol or drug abuse patient.[facility]In the event this information is protected by the Federal Confidentiality of Alcohol and Drug Abuse Patient Records regulations: The Federal rules restrict any use of the information to criminally investigate or prosecute any alcohol or drug abuse patient.[facility]In the event this information is protected by the Federal Confidentiality of Alcohol and Drug Abuse Patient Records regulations: The Federal rules restrict any use of the information to criminally investigate or prosecute any alcohol or drug abuse patient.[facility]In the event this information is protected by the Federal Confidentiality of Alcohol and Drug Abuse Patient Records regulations: The Federal rules restrict any use of the information to criminally investigate or prosecute any alcohol or drug abuse patient.[facility]In the event this information is protected by the Federal Confidentiality of Alcohol and Drug Abuse Patient Records regulations: The Federal rules restrict any use of the information to criminally investigate or prosecute any alcohol or drug abuse patient.[facility] HospitalIn the event this information is protected by the Federal Confidentiality of Alcohol and Drug Abuse Patient Records regulations: The Federal rules restrict any use of the information to criminally investigate or prosecute any alcohol or drug abuse patient.[facility] HospitalIn the event this information is protected by the Federal Confidentiality of Alcohol and Drug Abuse Patient Records regulations: The Federal rules restrict any use of the information to criminally investigate or prosecute any alcohol or drug abuse patient.[facility]In the event this information is protected by the Federal Confidentiality of Alcohol and Drug Abuse Patient Records regulations: The Federal rules restrict any use of the information to criminally investigate or prosecute any alcohol or drug abuse patient.[facility]In the event this information is protected by the Federal Confidentiality of Alcohol and Drug Abuse Patient Records regulations: The Federal rules restrict any use of the information to criminally investigate or prosecute any alcohol or drug abuse patient.[facility]In the event this information is protected by the Federal Confidentiality of Alcohol and Drug Abuse Patient Records regulations: The Federal rules restrict any use of the information to criminally investigate or prosecute any alcohol or drug abuse patient.[facility]In the event this information is protected by the Federal Confidentiality of Alcohol and Drug Abuse Patient Records regulations: The Federal rules restrict any use of the information to criminally investigate or prosecute any alcohol or drug abuse patient.[facility]In the event this information is protected by the Federal Confidentiality of Alcohol and Drug Abuse Patient Records regulations: The Federal rules restrict any use of the information to criminally investigate or prosecute any alcohol or drug abuse patient.[facility] HospitalIn the event this information is protected by the Federal Confidentiality of Alcohol and Drug Abuse Patient Records regulations: The Federal rules restrict any use of the information to criminally investigate or prosecute any alcohol or drug abuse patient.[facility] HospitalIn the event this information is protected by the Federal Confidentiality of Alcohol and Drug Abuse Patient Records regulations: The Federal rules restrict any use of the information to criminally investigate or prosecute any alcohol or drug abuse patient.[facility] HospitalIn the event this information is protected by the Federal Confidentiality of Alcohol and Drug Abuse Patient Records regulations: The Federal rules restrict any use of the information to criminally investigate or prosecute any alcohol or drug abuse patient.[facility]In the event this information is protected by the Federal Confidentiality of Alcohol and Drug Abuse Patient Records regulations: The Federal rules restrict any use of the information to criminally investigate or prosecute any alcohol or drug abuse patient.[facility] HospitalIn the event this information is protected by the Federal Confidentiality of Alcohol and Drug Abuse Patient Records regulations: The Federal rules restrict any use of the information to criminally investigate or prosecute any alcohol or drug abuse patient.[facility] HospitalIn the event this information is protected by the Federal Confidentiality of Alcohol and Drug Abuse Patient Records regulations: The Federal rules restrict any use of the information to criminally investigate or prosecute any alcohol or drug abuse patient.[facility] HospitalIn the event this information is protected by the Federal Confidentiality of Alcohol and Drug Abuse Patient Records regulations: The Federal rules restrict any use of the information to criminally investigate or prosecute any alcohol or drug abuse patient.[facility]In the event this information is protected by the Federal Confidentiality of Alcohol and Drug Abuse Patient Records regulations: The Federal rules restrict any use of the information to criminally investigate or prosecute any alcohol or drug abuse patient.[facility]In the event this information is protected by the Federal Confidentiality of Alcohol and Drug Abuse Patient Records regulations: The Federal rules restrict any use of the information to criminally investigate or prosecute any alcohol or drug abuse patient.[facility] HospitalIn the event this information is protected by the Federal Confidentiality of Alcohol and Drug Abuse Patient Records regulations: The Federal rules restrict any use of the information to criminally investigate or prosecute any alcohol or drug abuse patient.[facility] HospitalIn the event this information is protected by the Federal Confidentiality of Alcohol and Drug Abuse Patient Records regulations: The Federal rules restrict any use of the information to criminally investigate or prosecute any alcohol or drug abuse patient.[facility] HospitalIn the event this information is protected by the Federal Confidentiality of Alcohol and Drug Abuse Patient Records regulations: The Federal rules restrict any use of the information to criminally investigate or prosecute any alcohol or drug abuse patient.[facility] HospitalIn the event this information is protected by the Federal Confidentiality of Alcohol and Drug Abuse Patient Records regulations: The Federal rules restrict any use of the information to criminally investigate or prosecute any alcohol or drug abuse patient.[facility] HospitalIn the event this information is protected by the Federal Confidentiality of Alcohol and Drug Abuse Patient Records regulations: The Federal rules restrict any use of the information to criminally investigate or prosecute any alcohol or drug abuse patient.[facility] HospitalIn the event this information is protected by the Federal Confidentiality of Alcohol and Drug Abuse Patient Records regulations: The Federal rules restrict any use of the information to criminally investigate or prosecute any alcohol or drug abuse patient.[facility] HospitalIn the event this information is protected by the Federal Confidentiality of Alcohol and Drug Abuse Patient Records regulations: The Federal rules restrict any use of the information to criminally investigate or prosecute any alcohol or drug abuse patient.[facility] HospitalIn the event this information is protected by the Federal Confidentiality of Alcohol and Drug Abuse Patient Records regulations: The Federal rules restrict any use of the information to criminally investigate or prosecute any alcohol or drug abuse patient.[facility] HospitalIn the event this information is protected by the Federal Confidentiality of Alcohol and Drug Abuse Patient Records regulations: The Federal rules restrict any use of the information to criminally investigate or prosecute any alcohol or drug abuse patient.[facility]In the event this information is protected by the Federal Confidentiality of Alcohol and Drug Abuse Patient Records regulations: The Federal rules restrict any use of the information to criminally investigate or prosecute any alcohol or drug abuse patient.[facility]In the event this information is protected by the Federal Confidentiality of Alcohol and Drug Abuse Patient Records regulations: The Federal rules restrict any use of the information to criminally investigate or prosecute any alcohol or drug abuse patient.[facility] HospitalIn the event this information is protected by the Federal Confidentiality of Alcohol and Drug Abuse Patient Records regulations: The Federal rules restrict any use of the information to criminally investigate or prosecute any alcohol or drug abuse patient.[facility]In the event this information is protected by the Federal Confidentiality of Alcohol and Drug Abuse Patient Records regulations: The Federal rules restrict any use of the information to criminally investigate or prosecute any alcohol or drug abuse patient.[facility] HospitalIn the event this information is protected by the Federal Confidentiality of Alcohol and Drug Abuse Patient Records regulations: The Federal rules restrict any use of the information to criminally investigate or prosecute any alcohol or drug abuse patient.[facility]In the event this information is protected by the Federal Confidentiality of Alcohol and Drug Abuse Patient Records regulations: The Federal rules restrict any use of the information to criminally investigate or prosecute any alcohol or drug abuse patient.[facility] HospitalIn the event this information is protected by the Federal Confidentiality of Alcohol and Drug Abuse Patient Records regulations: The Federal rules restrict any use of the information to criminally investigate or prosecute any alcohol or drug abuse patient.[facility] HospitalIn the event this information is protected by the Federal Confidentiality of Alcohol and Drug Abuse Patient Records regulations: The Federal rules restrict any use of the information to criminally investigate or prosecute any alcohol or drug abuse patient.[facility] HospitalIn the event this information is protected by the Federal Confidentiality of Alcohol and Drug Abuse Patient Records regulations: The Federal rules restrict any use of the information to criminally investigate or prosecute any alcohol or drug abuse patient.[facility] HospitalIn the event this information is protected by the Federal Confidentiality of Alcohol and Drug Abuse Patient Records regulations: The Federal rules restrict any use of the information to criminally investigate or prosecute any alcohol or drug abuse patient.[facility] HospitalIn the event this information is protected by the Federal Confidentiality of Alcohol and Drug Abuse Patient Records regulations: The Federal rules restrict any use of the information to criminally investigate or prosecute any alcohol or drug abuse patient.[facility] HospitalIn the event this information is protected by the Federal Confidentiality of Alcohol and Drug Abuse Patient Records regulations: The Federal rules restrict any use of the information to criminally investigate or prosecute any alcohol or drug abuse patient.[facility]In the event this information is protected by the Federal Confidentiality of Alcohol and Drug Abuse Patient Records regulations: The Federal rules restrict any use of the information to criminally investigate or prosecute any alcohol or drug abuse patient.[facility]In the event this information is protected by the Federal Confidentiality of Alcohol and Drug Abuse Patient Records regulations: The Federal rules restrict any use of the information to criminally investigate or prosecute any alcohol or drug abuse patient.[facility] HospitalIn the event this information is protected by the Federal Confidentiality of Alcohol and Drug Abuse Patient Records regulations: The Federal rules restrict any use of the information to criminally investigate or prosecute any alcohol or drug abuse patient.[facility]In the event this information is protected by the Federal Confidentiality of Alcohol and Drug Abuse Patient Records regulations: The Federal rules restrict any use of the information to criminally investigate or prosecute any alcohol or drug abuse patient.[facility]In the event this information is protected by the Federal Confidentiality of Alcohol and Drug Abuse Patient Records regulations: The Federal rules restrict any use of the information to criminally investigate or prosecute any alcohol or drug abuse patient.[facility] HospitalIn the event this information is protected by the Federal Confidentiality of Alcohol and Drug Abuse Patient Records regulations: The Federal rules restrict any use of the information to criminally investigate or prosecute any alcohol or drug abuse patient.[facility] HospitalIn the event this information is protected by the Federal Confidentiality of Alcohol and Drug Abuse Patient Records regulations: The Federal rules restrict any use of the information to criminally investigate or prosecute any alcohol or drug abuse patient.[facility]In the event this information is protected by the Federal Confidentiality of Alcohol and Drug Abuse Patient Records regulations: The Federal rules restrict any use of the information to criminally investigate or prosecute any alcohol or drug abuse patient.[facility]In the event this information is protected by the Federal Confidentiality of Alcohol and Drug Abuse Patient Records regulations: The Federal rules restrict any use of the information to criminally investigate or prosecute any alcohol or drug abuse patient.[facility]In the event this information is protected by the Federal Confidentiality of Alcohol and Drug Abuse Patient Records regulations: The Federal rules restrict any use of the information to criminally investigate or prosecute any alcohol or drug abuse patient.[facility]In the event this information is protected by the Federal Confidentiality of Alcohol and Drug Abuse Patient Records regulations: The Federal rules restrict any use of the information to criminally investigate or prosecute any alcohol or drug abuse patient.[facility]In the event this information is protected by the Federal Confidentiality of Alcohol and Drug Abuse Patient Records regulations: The Federal rules restrict any use of the information to criminally investigate or prosecute any alcohol or drug abuse patient.[facility]In the event this information is protected by the Federal Confidentiality of Alcohol and Drug Abuse Patient Records regulations: The Federal rules restrict any use of the information to criminally investigate or prosecute any alcohol or drug abuse patient.[facility]In the event this information is protected by the Federal Confidentiality of Alcohol and Drug Abuse Patient Records regulations: The Federal rules restrict any use of the information to criminally investigate or prosecute any alcohol or drug abuse patient.[facility]In the event this information is protected by the Federal Confidentiality of Alcohol and Drug Abuse Patient Records regulations: The Federal rules restrict any use of the information to criminally investigate or prosecute any alcohol or drug abuse patient.[facility]In the event this information is protected by the Federal Confidentiality of Alcohol and Drug Abuse Patient Records regulations: The Federal rules restrict any use of the information to criminally investigate or prosecute any alcohol or drug abuse patient.[facility]In the event this information is protected by the Federal Confidentiality of Alcohol and Drug Abuse Patient Records regulations: The Federal rules restrict any use of the information to criminally investigate or prosecute any alcohol or drug abuse patient.[facility]In the event this information is protected by the Federal Confidentiality of Alcohol and Drug Abuse Patient Records regulations: The Federal rules restrict any use of the information to criminally investigate or prosecute any alcohol or drug abuse patient.[facility]In the event this information is protected by the Federal Confidentiality of Alcohol and Drug Abuse Patient Records regulations: The Federal rules restrict any use of the information to criminally investigate or prosecute any alcohol or drug abuse patient.[facility]In the event this information is protected by the Federal Confidentiality of Alcohol and Drug Abuse Patient Records regulations: The Federal rules restrict any use of the information to criminally investigate or prosecute any alcohol or drug abuse patient.[facility]In the event this information is protected by the Federal Confidentiality of Alcohol and Drug Abuse Patient Records regulations: The Federal rules restrict any use of the information to criminally investigate or prosecute any alcohol or drug abuse patient.[facility]In the event this information is protected by the Federal Confidentiality of Alcohol and Drug Abuse Patient Records regulations: The Federal rules restrict any use of the information to criminally investigate or prosecute any alcohol or drug abuse patient.[facility]In the event this information is protected by the Federal Confidentiality of Alcohol and Drug Abuse Patient Records regulations: The Federal rules restrict any use of the information to criminally investigate or prosecute any alcohol or drug abuse patient.[facility]In the event this information is protected by the Federal Confidentiality of Alcohol and Drug Abuse Patient Records regulations: The Federal rules restrict any use of the information to criminally investigate or prosecute any alcohol or drug abuse patient.[facility]In the event this information is protected by the Federal Confidentiality of Alcohol and Drug Abuse Patient Records regulations: The Federal rules restrict any use of the information to criminally investigate or prosecute any alcohol or drug abuse patient.[facility]In the event this information is protected by the Federal Confidentiality of Alcohol and Drug Abuse Patient Records regulations: The Federal rules restrict any use of the information to criminally investigate or prosecute any alcohol or drug abuse patient.[facility]In the event this information is protected by the Federal Confidentiality of Alcohol and Drug Abuse Patient Records regulations: The Federal rules restrict any use of the information to criminally investigate or prosecute any alcohol or drug abuse patient.[facility]In the event this information is protected by the Federal Confidentiality of Alcohol and Drug Abuse Patient Records regulations: The Federal rules restrict any use of the information to criminally investigate or prosecute any alcohol or drug abuse patient.[facility]In the event this information is protected by the Federal Confidentiality of Alcohol and Drug Abuse Patient Records regulations: The Federal rules restrict any use of the information to criminally investigate or prosecute any alcohol or drug abuse patient.[facility]In the event this information is protected by the Federal Confidentiality of Alcohol and Drug Abuse Patient Records regulations: The Federal rules restrict any use of the information to criminally investigate or prosecute any alcohol or drug abuse patient.[facility]In the event this information is protected by the Federal Confidentiality of Alcohol and Drug Abuse Patient Records regulations: The Federal rules restrict any use of the information to criminally investigate or prosecute any alcohol or drug abuse patient.[facility]In the event this information is protected by the Federal Confidentiality of Alcohol and Drug Abuse Patient Records regulations: The Federal rules restrict any use of the information to criminally investigate or prosecute any alcohol or drug abuse patient.[facility]In the event this information is protected by the Federal Confidentiality of Alcohol and Drug Abuse Patient Records regulations: The Federal rules restrict any use of the information to criminally investigate or prosecute any alcohol or drug abuse patient.[facility]In the event this information is protected by the Federal Confidentiality of Alcohol and Drug Abuse Patient Records regulations: The Federal rules restrict any use of the information to criminally investigate or prosecute any alcohol or drug abuse patient.[facility]In the event this information is protected by the Federal Confidentiality of Alcohol and Drug Abuse Patient Records regulations: The Federal rules restrict any use of the information to criminally investigate or prosecute any alcohol or drug abuse patient.[facility]In the event this information is protected by the Federal Confidentiality of Alcohol and Drug Abuse Patient Records regulations: The Federal rules restrict any use of the information to criminally investigate or prosecute any alcohol or drug abuse patient.[facility]In the event this information is protected by the Federal Confidentiality of Alcohol and Drug Abuse Patient Records regulations: The Federal rules restrict any use of the information to criminally investigate or prosecute any alcohol or drug abuse patient.[facility]In the event this information is protected by the Federal Confidentiality of Alcohol and Drug Abuse Patient Records regulations: The Federal rules restrict any use of the information to criminally investigate or prosecute any alcohol or drug abuse patient.[facility]In the event this information is protected by the Federal Confidentiality of Alcohol and Drug Abuse Patient Records regulations: The Federal rules restrict any use of the information to criminally investigate or prosecute any alcohol or drug abuse patient.[facility]In the event this information is protected by the Federal Confidentiality of Alcohol and Drug Abuse Patient Records regulations: The Federal rules restrict any use of the information to criminally investigate or prosecute any alcohol or drug abuse patient.[facility] HospitalIn the event this information is protected by the Federal Confidentiality of Alcohol and Drug Abuse Patient Records regulations: The Federal rules restrict any use of the information to criminally investigate or prosecute any alcohol or drug abuse patient.[facility]In the event this information is protected by the Federal Confidentiality of Alcohol and Drug Abuse Patient Records regulations: The Federal rules restrict any use of the information to criminally investigate or prosecute any alcohol or drug abuse patient.[facility] HospitalIn the event this information is protected by the Federal Confidentiality of Alcohol and Drug Abuse Patient Records regulations: The Federal rules restrict any use of the information to criminally investigate or prosecute any alcohol or drug abuse patient.[facility]In the event this information is protected by the Federal Confidentiality of Alcohol and Drug Abuse Patient Records regulations: The Federal rules restrict any use of the information to criminally investigate or prosecute any alcohol or drug abuse patient.[facility]In the event this information is protected by the Federal Confidentiality of Alcohol and Drug Abuse Patient Records regulations: The Federal rules restrict any use of the information to criminally investigate or prosecute any alcohol or drug abuse patient.[facility]In the event this information is protected by the Federal Confidentiality of Alcohol and Drug Abuse Patient Records regulations: The Federal rules restrict any use of the information to criminally investigate or prosecute any alcohol or drug abuse patient.[facility]In the event this information is protected by the Federal Confidentiality of Alcohol and Drug Abuse Patient Records regulations: The Federal rules restrict any use of the information to criminally investigate or prosecute any alcohol or drug abuse patient.[facility]In the event this information is protected by the Federal Confidentiality of Alcohol and Drug Abuse Patient Records regulations: The Federal rules restrict any use of the information to criminally investigate or prosecute any alcohol or drug abuse patient.[facility]In the event this information is protected by the Federal Confidentiality of Alcohol and Drug Abuse Patient Records regulations: The Federal rules restrict any use of the information to criminally investigate or prosecute any alcohol or drug abuse patient.[facility] HospitalIn the event this information is protected by the Federal Confidentiality of Alcohol and Drug Abuse Patient Records regulations: The Federal rules restrict any use of the information to criminally investigate or prosecute any alcohol or drug abuse patient.[facility] HospitalIn the event this information is protected by the Federal Confidentiality of Alcohol and Drug Abuse Patient Records regulations: The Federal rules restrict any use of the information to criminally investigate or prosecute any alcohol or drug abuse patient.[facility]In the event this information is protected by the Federal Confidentiality of Alcohol and Drug Abuse Patient Records regulations: The Federal rules restrict any use of the information to criminally investigate or prosecute any alcohol or drug abuse patient.[facility]In the event this information is protected by the Federal Confidentiality of Alcohol and Drug Abuse Patient Records regulations: The Federal rules restrict any use of the information to criminally investigate or prosecute any alcohol or drug abuse patient.[facility]In the event this information is protected by the Federal Confidentiality of Alcohol and Drug Abuse Patient Records regulations: The Federal rules restrict any use of the information to criminally investigate or prosecute any alcohol or drug abuse patient.[facility]In the event this information is protected by the Federal Confidentiality of Alcohol and Drug Abuse Patient Records regulations: The Federal rules restrict any use of the information to criminally investigate or prosecute any alcohol or drug abuse patient.[facility]In the event this information is protected by the Federal Confidentiality of Alcohol and Drug Abuse Patient Records regulations: The Federal rules restrict any use of the information to criminally investigate or prosecute any alcohol or drug abuse patient.[facility] HospitalIn the event this information is protected by the Federal Confidentiality of Alcohol and Drug Abuse Patient Records regulations: The Federal rules restrict any use of the information to criminally investigate or prosecute any alcohol or drug abuse patient.[facility] HospitalIn the event this information is protected by the Federal Confidentiality of Alcohol and Drug Abuse Patient Records regulations: The Federal rules restrict any use of the information to criminally investigate or prosecute any alcohol or drug abuse patient.[facility] HospitalIn the event this information is protected by the Federal Confidentiality of Alcohol and Drug Abuse Patient Records regulations: The Federal rules restrict any use of the information to criminally investigate or prosecute any alcohol or drug abuse patient.[facility]In the event this information is protected by the Federal Confidentiality of Alcohol and Drug Abuse Patient Records regulations: The Federal rules restrict any use of the information to criminally investigate or prosecute any alcohol or drug abuse patient.[facility] HospitalIn the event this information is protected by the Federal Confidentiality of Alcohol and Drug Abuse Patient Records regulations: The Federal rules restrict any use of the information to criminally investigate or prosecute any alcohol or drug abuse patient.[facility] HospitalIn the event this information is protected by the Federal Confidentiality of Alcohol and Drug Abuse Patient Records regulations: The Federal rules restrict any use of the information to criminally investigate or prosecute any alcohol or drug abuse patient.[facility] HospitalIn the event this information is protected by the Federal Confidentiality of Alcohol and Drug Abuse Patient Records regulations: The Federal rules restrict any use of the information to criminally investigate or prosecute any alcohol or drug abuse patient.[facility]In the event this information is protected by the Federal Confidentiality of Alcohol and Drug Abuse Patient Records regulations: The Federal rules restrict any use of the information to criminally investigate or prosecute any alcohol or drug abuse patient.[facility]In the event this information is protected by the Federal Confidentiality of Alcohol and Drug Abuse Patient Records regulations: The Federal rules restrict any use of the information to criminally investigate or prosecute any alcohol or drug abuse patient.[facility] HospitalIn the event this information is protected by the Federal Confidentiality of Alcohol and Drug Abuse Patient Records regulations: The Federal rules restrict any use of the information to criminally investigate or prosecute any alcohol or drug abuse patient.[facility] HospitalIn the event this information is protected by the Federal Confidentiality of Alcohol and Drug Abuse Patient Records regulations: The Federal rules restrict any use of the information to criminally investigate or prosecute any alcohol or drug abuse patient.[facility] HospitalIn the event this information is protected by the Federal Confidentiality of Alcohol and Drug Abuse Patient Records regulations: The Federal rules restrict any use of the information to criminally investigate or prosecute any alcohol or drug abuse patient.[facility] HospitalIn the event this information is protected by the Federal Confidentiality of Alcohol and Drug Abuse Patient Records regulations: The Federal rules restrict any use of the information to criminally investigate or prosecute any alcohol or drug abuse patient.[facility] HospitalIn the event this information is protected by the Federal Confidentiality of Alcohol and Drug Abuse Patient Records regulations: The Federal rules restrict any use of the information to criminally investigate or prosecute any alcohol or drug abuse patient.[facility] HospitalIn the event this information is protected by the Federal Confidentiality of Alcohol and Drug Abuse Patient Records regulations: The Federal rules restrict any use of the information to criminally investigate or prosecute any alcohol or drug abuse patient.[facility] HospitalIn the event this information is protected by the Federal Confidentiality of Alcohol and Drug Abuse Patient Records regulations: The Federal rules restrict any use of the information to criminally investigate or prosecute any alcohol or drug abuse patient.[facility] HospitalIn the event this information is protected by the Federal Confidentiality of Alcohol and Drug Abuse Patient Records regulations: The Federal rules restrict any use of the information to criminally investigate or prosecute any alcohol or drug abuse patient.[facility] HospitalIn the event this information is protected by the Federal Confidentiality of Alcohol and Drug Abuse Patient Records regulations: The Federal rules restrict any use of the information to criminally investigate or prosecute any alcohol or drug abuse patient.[facility]In the event this information is protected by the Federal Confidentiality of Alcohol and Drug Abuse Patient Records regulations: The Federal rules restrict any use of the information to criminally investigate or prosecute any alcohol or drug abuse patient.[facility]In the event this information is protected by the Federal Confidentiality of Alcohol and Drug Abuse Patient Records regulations: The Federal rules restrict any use of the information to criminally investigate or prosecute any alcohol or drug abuse patient.[facility] HospitalIn the event this information is protected by the Federal Confidentiality of Alcohol and Drug Abuse Patient Records regulations: The Federal rules restrict any use of the information to criminally investigate or prosecute any alcohol or drug abuse patient.[facility]In the event this information is protected by the Federal Confidentiality of Alcohol and Drug Abuse Patient Records regulations: The Federal rules restrict any use of the information to criminally investigate or prosecute any alcohol or drug abuse patient.[facility] HospitalIn the event this information is protected by the Federal Confidentiality of Alcohol and Drug Abuse Patient Records regulations: The Federal rules restrict any use of the information to criminally investigate or prosecute any alcohol or drug abuse patient.[facility]In the event this information is protected by the Federal Confidentiality of Alcohol and Drug Abuse Patient Records regulations: The Federal rules restrict any use of the information to criminally investigate or prosecute any alcohol or drug abuse patient.[facility] HospitalIn the event this information is protected by the Federal Confidentiality of Alcohol and Drug Abuse Patient Records regulations: The Federal rules restrict any use of the information to criminally investigate or prosecute any alcohol or drug abuse patient.[facility] HospitalIn the event this information is protected by the Federal Confidentiality of Alcohol and Drug Abuse Patient Records regulations: The Federal rules restrict any use of the information to criminally investigate or prosecute any alcohol or drug abuse patient.[facility] HospitalIn the event this information is protected by the Federal Confidentiality of Alcohol and Drug Abuse Patient Records regulations: The Federal rules restrict any use of the information to criminally investigate or prosecute any alcohol or drug abuse patient.[facility] HospitalIn the event this information is protected by the Federal Confidentiality of Alcohol and Drug Abuse Patient Records regulations: The Federal rules restrict any use of the information to criminally investigate or prosecute any alcohol or drug abuse patient.[facility] HospitalIn the event this information is protected by the Federal Confidentiality of Alcohol and Drug Abuse Patient Records regulations: The Federal rules restrict any use of the information to criminally investigate or prosecute any alcohol or drug abuse patient.[facility] HospitalIn the event this information is protected by the Federal Confidentiality of Alcohol and Drug Abuse Patient Records regulations: The Federal rules restrict any use of the information to criminally investigate or prosecute any alcohol or drug abuse patient.[facility]In the event this information is protected by the Federal Confidentiality of Alcohol and Drug Abuse Patient Records regulations: The Federal rules restrict any use of the information to criminally investigate or prosecute any alcohol or drug abuse patient.[facility]In the event this information is protected by the Federal Confidentiality of Alcohol and Drug Abuse Patient Records regulations: The Federal rules restrict any use of the information to criminally investigate or prosecute any alcohol or drug abuse patient.[facility] HospitalIn the event this information is protected by the Federal Confidentiality of Alcohol and Drug Abuse Patient Records regulations: The Federal rules restrict any use of the information to criminally investigate or prosecute any alcohol or drug abuse patient.[facility]In the event this information is protected by the Federal Confidentiality of Alcohol and Drug Abuse Patient Records regulations: The Federal rules restrict any use of the information to criminally investigate or prosecute any alcohol or drug abuse patient.[facility]In the event this information is protected by the Federal Confidentiality of Alcohol and Drug Abuse Patient Records regulations: The Federal rules restrict any use of the information to criminally investigate or prosecute any alcohol or drug abuse patient.[facility] HospitalIn the event this information is protected by the Federal Confidentiality of Alcohol and Drug Abuse Patient Records regulations: The Federal rules restrict any use of the information to criminally investigate or prosecute any alcohol or drug abuse patient.[facility] HospitalIn the event this information is protected by the Federal Confidentiality of Alcohol and Drug Abuse Patient Records regulations: The Federal rules restrict any use of the information to criminally investigate or prosecute any alcohol or drug abuse patient.[facility]In the event this information is protected by the Federal Confidentiality of Alcohol and Drug Abuse Patient Records regulations: The Federal rules restrict any use of the information to criminally investigate or prosecute any alcohol or drug abuse patient.[facility]In the event this information is protected by the Federal Confidentiality of Alcohol and Drug Abuse Patient Records regulations: The Federal rules restrict any use of the information to criminally investigate or prosecute any alcohol or drug abuse patient.[facility]In the event this information is protected by the Federal Confidentiality of Alcohol and Drug Abuse Patient Records regulations: The Federal rules restrict any use of the information to criminally investigate or prosecute any alcohol or drug abuse patient.[facility]In the event this information is protected by the Federal Confidentiality of Alcohol and Drug Abuse Patient Records regulations: The Federal rules restrict any use of the information to criminally investigate or prosecute any alcohol or drug abuse patient.[facility]In the event this information is protected by the Federal Confidentiality of Alcohol and Drug Abuse Patient Records regulations: The Federal rules restrict any use of the information to criminally investigate or prosecute any alcohol or drug abuse patient.[facility]In the event this information is protected by the Federal Confidentiality of Alcohol and Drug Abuse Patient Records regulations: The Federal rules restrict any use of the information to criminally investigate or prosecute any alcohol or drug abuse patient.[facility]In the event this information is protected by the Federal Confidentiality of Alcohol and Drug Abuse Patient Records regulations: The Federal rules restrict any use of the information to criminally investigate or prosecute any alcohol or drug abuse patient.[facility]In the event this information is protected by the Federal Confidentiality of Alcohol and Drug Abuse Patient Records regulations: The Federal rules restrict any use of the information to criminally investigate or prosecute any alcohol or drug abuse patient.[facility]In the event this information is protected by the Federal Confidentiality of Alcohol and Drug Abuse Patient Records regulations: The Federal rules restrict any use of the information to criminally investigate or prosecute any alcohol or drug abuse patient.[facility]In the event this information is protected by the Federal Confidentiality of Alcohol and Drug Abuse Patient Records regulations: The Federal rules restrict any use of the information to criminally investigate or prosecute any alcohol or drug abuse patient.[facility]In the event this information is protected by the Federal Confidentiality of Alcohol and Drug Abuse Patient Records regulations: The Federal rules restrict any use of the information to criminally investigate or prosecute any alcohol or drug abuse patient.[facility]In the event this information is protected by the Federal Confidentiality of Alcohol and Drug Abuse Patient Records regulations: The Federal rules restrict any use of the information to criminally investigate or prosecute any alcohol or drug abuse patient.[facility]In the event this information is protected by the Federal Confidentiality of Alcohol and Drug Abuse Patient Records regulations: The Federal rules restrict any use of the information to criminally investigate or prosecute any alcohol or drug abuse patient.[facility]In the event this information is protected by the Federal Confidentiality of Alcohol and Drug Abuse Patient Records regulations: The Federal rules restrict any use of the information to criminally investigate or prosecute any alcohol or drug abuse patient.[facility]In the event this information is protected by the Federal Confidentiality of Alcohol and Drug Abuse Patient Records regulations: The Federal rules restrict any use of the information to criminally investigate or prosecute any alcohol or drug abuse patient.[facility]In the event this information is protected by the Federal Confidentiality of Alcohol and Drug Abuse Patient Records regulations: The Federal rules restrict any use of the information to criminally investigate or prosecute any alcohol or drug abuse patient.[facility]In the event this information is protected by the Federal Confidentiality of Alcohol and Drug Abuse Patient Records regulations: The Federal rules restrict any use of the information to criminally investigate or prosecute any alcohol or drug abuse patient.[facility]In the event this information is protected by the Federal Confidentiality of Alcohol and Drug Abuse Patient Records regulations: The Federal rules restrict any use of the information to criminally investigate or prosecute any alcohol or drug abuse patient.[facility]In the event this information is protected by the Federal Confidentiality of Alcohol and Drug Abuse Patient Records regulations: The Federal rules restrict any use of the information to criminally investigate or prosecute any alcohol or drug abuse patient.[facility]In the event this information is protected by the Federal Confidentiality of Alcohol and Drug Abuse Patient Records regulations: The Federal rules restrict any use of the information to criminally investigate or prosecute any alcohol or drug abuse patient.[facility]In the event this information is protected by the Federal Confidentiality of Alcohol and Drug Abuse Patient Records regulations: The Federal rules restrict any use of the information to criminally investigate or prosecute any alcohol or drug abuse patient.[facility]In the event this information is protected by the Federal Confidentiality of Alcohol and Drug Abuse Patient Records regulations: The Federal rules restrict any use of the information to criminally investigate or prosecute any alcohol or drug abuse patient.[facility]In the event this information is protected by the Federal Confidentiality of Alcohol and Drug Abuse Patient Records regulations: The Federal rules restrict any use of the information to criminally investigate or prosecute any alcohol or drug abuse patient.[facility]In the event this information is protected by the Federal Confidentiality of Alcohol and Drug Abuse Patient Records regulations: The Federal rules restrict any use of the information to criminally investigate or prosecute any alcohol or drug abuse patient.[facility]In the event this information is protected by the Federal Confidentiality of Alcohol and Drug Abuse Patient Records regulations: The Federal rules restrict any use of the information to criminally investigate or prosecute any alcohol or drug abuse patient.[facility]In the event this information is protected by the Federal Confidentiality of Alcohol and Drug Abuse Patient Records regulations: The Federal rules restrict any use of the information to criminally investigate or prosecute any alcohol or drug abuse patient.[facility]In the event this information is protected by the Federal Confidentiality of Alcohol and Drug Abuse Patient Records regulations: The Federal rules restrict any use of the information to criminally investigate or prosecute any alcohol or drug abuse patient.[facility]In the event this information is protected by the Federal Confidentiality of Alcohol and Drug Abuse Patient Records regulations: The Federal rules restrict any use of the information to criminally investigate or prosecute any alcohol or drug abuse patient.[facility]In the event this information is protected by the Federal Confidentiality of Alcohol and Drug Abuse Patient Records regulations: The Federal rules restrict any use of the information to criminally investigate or prosecute any alcohol or drug abuse patient.[facility]In the event this information is protected by the Federal Confidentiality of Alcohol and Drug Abuse Patient Records regulations: The Federal rules restrict any use of the information to criminally investigate or prosecute any alcohol or drug abuse patient.[facility]In the event this information is protected by the Federal Confidentiality of Alcohol and Drug Abuse Patient Records regulations: The Federal rules restrict any use of the information to criminally investigate or prosecute any alcohol or drug abuse patient.[facility]In the event this information is protected by the Federal Confidentiality of Alcohol and Drug Abuse Patient Records regulations: The Federal rules restrict any use of the information to criminally investigate or prosecute any alcohol or drug abuse patient.[facility]In the event this information is protected by the Federal Confidentiality of Alcohol and Drug Abuse Patient Records regulations: The Federal rules restrict any use of the information to criminally investigate or prosecute any alcohol or drug abuse patient.[facility] HospitalIn the event this information is protected by the Federal Confidentiality of Alcohol and Drug Abuse Patient Records regulations: The Federal rules restrict any use of the information to criminally investigate or prosecute any alcohol or drug abuse patient.[facility] the event this information is protected by the Federal Confidentiality of Alcohol and Drug Abuse Patient Records regulations: The Federal rules restrict any use of the information to criminally investigate or prosecute any alcohol or drug abuse patient.[facility] Reason for Visit (unrecogniz ed section and content) Reason Comments Physical Therapy Specialty Diagnoses / Procedures Referred By Contac t Referred To Contact Physical Therapy / PHYSICAL THERAPY Diagnoses Left hip pain [M25.552] Procedures NEW RS PT ORTH Shanita Pond PA-C [address] [place] [address] Phone: tel: fax: Mary Ann Oscar PT Referral ID Status Reason Start Date Expiration Date V isits Requested Visits Authorized [id number] Authorized 09/02/2024 09/01/2025 20 20 Reason Comments PT Eval Specialty Diagnoses / Procedures Referred By Contac t Referred To Contact Physical Therapy / PHYSICAL THERAPY Diagnoses Left hip pain [M25.552] Procedures NEW RS PT ORTH Shanita Pond PA-C [address] [place] [address] Mary Ann Oscar PT Reason Comments PT Discharge Specialty Diagnoses / Procedures Referred By Contac t Referred To Contact PHYSICAL THERAPY Diagnoses Chronic bilateral low back pain with sciatica, sciatica laterality unspecified Procedures CONSULT TO PHYSICAL THERAPY PHYSICAL THERAPY EVALUATION HIGH COMPLEX 45 MINS Shanita Green PA-C [address] [place] [address] Jeancarlos Fraser PT Referral ID Status Reason Start Date Expiration Date Visits Requested Visits Authorized [id number] Authorized Auto-Generat ed Referral 05/14/2023 09/01/2023 20 [...] REAL-TIME IMAGE COMPLETE Shanita Green PA-C [address] [place] [address] [facility] Referral ID Status Reason Start Date Expiration Date V isits Requested Visits Authorized [id number] Closed Auto-Generate d Referral 03/23/2022 04/22/2023 1 [...] Reason Comments Physical Reason Onset Date Comments [facility] 11/12/2022 Telephonic outre ach Reason Comments Weight Loss Reason Onset Date Comments Refill Request 12/05/2022 Reason Onset Date Comments [facility] 12/07/2022 Telephonic outre ach Reason Comments Referral Information Reason Onset Date Comments M 01/03/2023 Telephonic outre ach Reason Comments Multiple Concerns Headache-persistent with high BP at home; Sleep-difficulty to fall asleep/stay asleep; runny nose Reason Comments Recheck Blood pressure Reason Comments Outside Endocrinology Reason Onset Date Comments [facility] Telephonic Outreach 02/28/2023 Reason Onset Date Comments [...] NEW HIGH MDM 60-74 MINUTES Alex Brown, ALAN.COMPOUNDING AND FINISHING SUPERVISOR [address] [place] [address] Referral ID Status Reason Start Date Expiration Date Visits Requested Visits Authorized [id number] Pending Review PCP Requested Referral 06/04/2023 06/03/2024 1 1 Reason Onset Date Comments [facility] Telephonic Outreach 06/21/2023 Reason Onset Date Comments Refill Request 06/27/2023 Specialty Diagnoses / Procedures Referred By Contac t Referred To Contact US IMAGING Diagnoses Weight loss Ex-smoker Procedures US ABDOMEN COMPLETE US ABDOMINAL REAL TIME W/IMAGE DOCUMENTATION Rito Camp MD [address] [place] [address] [place] [address] Referral ID Status Reason Start Date Expiration Date V isits Requested Visits Authorized [id number] Closed Auto-Generate d Referral 11/19/2022 12/19/2023 [address] Specialty Diagnoses / Procedures Referred By Contac t Referred To Contact CT IMAGING Diagnoses New onset of headaches after age 50 Procedures CTA HEAD W IVCON CT ANGIOGRAPHY HEAD W/CONTRAST/NONCONTRAST Alex Brown APRN.COMPOUNDING AND FINISHING SUPERVISOR [address] [place] [address] [place] [address] Referral ID Status Reason Start Date Expiration Date V isits Requested Visits Authorized [id number] Closed Auto-Generate d Referral 02/15/2023 03/16/2024 1 1 Specialty Diagnoses / Procedures Referred By Contac t Referred To Contact CT IMAGING Diagnoses Ex-smoker Weight loss, unintentional Procedures CT ABD/PEL W IVCON CT ABD & PELVIS W/CONTRAST Rito Camp MD [address] [place], [place] [id number] [place] [address] Referral ID Status Reason Start Date Expiration Date V isits Requested Visits Authorized [id number] Closed Auto-Generate d Referral 01/21/2023 01/03/2024 2 2 Specialty Diagnoses / Procedures Referred By Contac t Referred To Contact CT IMAGING Diagnoses Weight loss Ex-smoker Lung nodules Procedures CT CHEST WO IVCON DIAGNOSTIC COMPUTED TOMOGRAPHY THORAX W/O CNTRST Rito Camp MD [address] [place] [address] [place] [address] Referral ID Status Reason Start Date Expiration Date V isits Requested Visits Authorized [id number] Closed Auto-Generate d Referral 11/19/2022 12/19/2023 1 1 Reason Onset Date Comments [facility] Telephonic Outreach 07/22/2023 Reason Onset Date Comments [facility] 08/22/2023 Telephonic Outre ach Reason Onset Date Comments Refill Request 10/07/2023 Changing her Pha rmacy Reason Comments right shoulder pain X 2 weeks Reason Onset Date Comments [facility] 10/21/2023 Telephonic Outre ach Reason Onset Date Comments [facility] 10/22/2023 Telephonic Outre ach Reason Comments Patient Update FYI-No Action Needed Reason Onset Date Comments [facility] 11/18/2023 Telephonic Outre ach Reason Comments Results Disc/Report Reason Onset Date Comments [facility] 12/16/2023 Telephonic Outre ach Reason Onset Date Comments [facility] 12/17/2023 Telephonic Outre ach Reason Comments Chest Congestion SOB, cough, non prod uctive, sneezing, chest tightness x 3 days Reason Comments Cough Chest congestion x 4 days Reason Comments ext document CT report Reason Onset Date Comments [facility] 01/14/2024 Telephonic Outre ach Reason Onset Date Comments [facility] 01/15/2024 Telephonic Outre ach Reason Onset Date Comments [facility] 02/12/2024 Telephonic Outre ach Reason Onset Date Comments [facility] 03/11/2024 Telephonic Outre ach Reason Onset Date Comments Refill Request 03/16/2024 Reason Comments Fall Reason Comments Follow Up Left shoulder pain a fter fall on 03/17 Reason Onset Date Comments [facility] 04/06/2024 Telephonic Outre ach Reason Onset Date Comments [facility] 04/07/2024 Telephonic Outre ach Reason Comments Fall Fell 5 days ago- rig ht rib pain Specialty Diagnoses / Procedures Referred By Castillo t Referred To Contact MR IMAGING Diagnoses Fall, initial encounter Acute pain of left shoulder Procedures MRI SHOULDER WO/W IVCON LEFT MRI ANY JT UPPER EXTREMITY W/O & W/CONTR MATRL Alex Brown, COLD STRIP FEEDER.COMPOUNDING AND FINISHING SUPERVISOR [address] [place] [address] Mr [facility] Referral ID Status Reason Start Date Expiration Date V isits Requested Visits Authorized [id number] Closed Auto-Generate d Referral 03/26/2024 04/25/2025 1 1 Reason Onset Date Comments Refill Request 04/27/2024 Reason Onset Date Comments [facility] 05/06/2024 Telephonic Outre ach Reason Onset Date Comments [facility] 05/07/2024 Telephonic Outre ach Reason Comments Urinary Problem Urgency, pain x 3 da ys Reason Comments UTI Reason Comments Cough Chest congestion, he aviness in chest, headache, SOB, sore throat x 3 days Reason Comments Radiology XR Specialty Diagnoses / Procedures Referred By Castillo t Referred To Contact Radiology / [facility] Diagnoses Pneumonia due to COVID-19 virus Pneumonia due to COVID-19 virus [U07.1, J12.89] Procedures RADIOLOGIC EXAM CHEST 2 VIEWS XR CHEST Darvin Gold III, MD NO FORWARDING ADDRESS [facility] [address] [place] [address] Referral ID Status Reason Start Date Expiration Date Visits Re quested Visits Authorized [id number] Closed 07/23/2020 09/01/2020 1 1 Reason Comments Medication Problem Reason Onset Date Comments [facility] 06/17/2024 Telephonic Outre ach Reason Onset Date Comments [facility] 06/18/2024 Telephonic Outre ach Reason Onset Date Comments [facility] 07/16/2024 Telephonic Outre ach Reason Comments Outside Pulmonary Reason Comments Cough X 3 days Reason Comments side pain Left side pain X2 we eks Reason Onset Date Comments [facility] 08/12/2024 Telephonic Outre ach Reason Onset Date Comments [facility] 08/13/2024 Telephonic Outre ach Reason Comments fax [...] Care Teams (unrecognized sec tion and content) Testing Consultant Relationship Specialty Start Date End Date Rito Camp MD [address] [place] [address] PCP - General Family Practice 01/27/21 Kami Hunter mule driverClinical Biostatistician 04/27/21 Suleman Gustafson [address] [place] [address] Hot Mill Worker 04/27/21 Testing Consultant Relationship Specialty Start Date End Date Rito Camp MD [address] [place] [address] PCP - General Family Practice 01/27/21 Kami Hunter mule driverClinical Biostatistician 04/27/21 Suleman Gustafson [address] [place] [address] Hot Mill Worker 04/27/21 Testing Consultant Relationship Specialty Start Date End Date Rito Camp MD [address] [place] [address] PCP - General Family Practice 01/27/21 Kami Hunter mule driverClinical Biostatistician 04/27/21 Suleman Gustafson [address] [place] [address] Hot Mill Worker 04/27/21 Testing Consultant Relationship Specialty Start Date End Date Rito Camp MD [address] [place] [address] PCP - General Family Practice 01/27/21 Kami Hunter mule driverClinical Biostatistician 04/27/21 Suleman Gustafson [address] [place] [address] Hot Mill Worker 04/27/21 Testing Consultant Relationship Specialty Start Date End Date Rito Camp MD [address] [facility] [place] [address] PCP - General Family Practice 01/27/21 Kami Hunter, mule driverClinical Biostatistician 04/27/21 Suleman Gustafson [address] [facility] [place] [address] Hot Mill Worker 04/27/21 Testing Consultant Relationship Specialty Start Date End Date Rito Camp MD [address] [facility] [place] [address] PCP - General Family Practice 01/27/21 Kami Hunter RN [address] [place], [place] [id number] Clinical Biostatistician 04/27/21 Suleman Gustafson [address] [facility] [place] [address] Hot Mill Worker 04/27/21 Testing Consultant Relationship Specialty Start Date End Date Rito Camp MD [address] [facility] [place] [address] PCP - General Family Practice 01/27/21 Kami Hunter RN [address] [place] [address] Clinical Biostatistician 04/27/21 Suleman Gustafson [address] [facility] [place] [address] Hot Mill Worker 04/27/21 Testing Consultant Relationship Specialty Start Date End Date Rito Camp MD [address] [facility] [place] [address] PCP - General Family Practice 01/27/21 Kami Hunter, ELDER [address] [facility] [place] [address] Clinical Biostatistician 04/27/21 Suleman Gustafson [address] [facility] [place] [address] Hot Mill Worker 04/27/21 Testing Consultant Relationship Specialty Start Date End Date Rito Camp MD [address] [place] [address] PCP - General Family Practice 01/27/21 Kami Hunter, ELDER [address] [place] [address] Clinical Biostatistician 04/27/21 Suleman Gustafson [address] [place] [address] Hot Mill Worker 04/27/21 Testing Consultant Relationship Specialty Start Date End Date Rito Camp MD [address] [facility] [place] [address] PCP - General Family Practice 01/27/21 Kami Hunter RN [address] [facility] [place] [address] Clinical Biostatistician 04/27/21 Suleman Gustafson [address] [place] [address] Hot Mill Worker 04/27/21 Testing Consultant Relationship Specialty Start Date End Date Rito Camp MD [address] [place] [address] PCP - General Family Practice 01/27/21 Kami Hunter, ELDER [address] [place] [address] Clinical Biostatistician 04/27/21 Suleman Gustafson [address] [place] [address] Hot Mill Worker 04/27/21 Testing Consultant Relationship Specialty Start Date End Date Rito Camp MD [address] [facility] [place] [address] PCP - General Family Practice 01/27/21 Kami Hunter, RN [address] [place] [address] Clinical Biostatistician 04/27/21 Suleman Gustafson [address] [facility] [place] [address] Hot Mill Worker 04/27/21 Testing Consultant Relationship Specialty Start Date End Date Rito Camp MD [address] [facility] [place] [address] PCP - General Family Practice 01/27/21 Kami Hunter, RN [address] [place] [address] Clinical Biostatistician 04/27/21 Suleman Gustafson [address] [place] [facility] [address] Hot Mill Worker 04/27/21 Testing Consultant Relationship Specialty Start Date End Date Rito Camp MD [address] [facility] [place] [address] PCP - General Family Practice 01/27/21 Kami Hunter, RN [address] [place] [address] Clinical Biostatistician 04/27/21 Suleman Gustafson [address] [facility] [place] [address] Hot Mill Worker 04/27/21 Testing Consultant Relationship Specialty Start Date End Date iRto Camp MD [address] [facility] [place] [address] PCP - General Family Practice 01/27/21 Kami Hunter, ELDER [address] [place] [address] Clinical Biostatistician 04/27/21 Suleman Gustafson [address] [facility] [place] [address] Hot Mill Worker 04/27/21 Testing Consultant Relationship Specialty Start Date End Date Rito Camp MD [address] [facility] [place] [address] PCP - General Family Practice 01/27/21 Kami Hunter RN [address] [place] [address] Clinical Biostatistician 04/27/21 Suleman Gustafson [address] [facility] [place] [address] Hot Mill Worker 04/27/21 Testing Consultant Relationship Specialty Start Date End Date Rito Camp MD [address] [facility] [place] [address] PCP - General Family Practice 01/27/21 Kami Hunter RN [address] [place] [address] Clinical Biostatistician 04/27/21 Suleman Gustafson [address] [facility] [place] [address] Hot Mill Worker 04/27/21 Testing Consultant Relationship Specialty Start Date End Date Rito Camp MD [address] [facility] [place] [address] PCP - General Family Medicine 01/27/21 Kami Hunter RN [address] [facility] [place] [address] Clinical Biostatistician 04/27/21 Suleman Gustafson [address] [facility] [place] [address] Hot Mill Worker 04/27/21 Testing Consultant Relationship Specialty Start Date End Date Rito Camp MD [address] [facility] [place] [address] PCP - General Family Medicine 01/27/21 Kami Hunter, ELDER [address] [facility] [place] [address] Clinical Biostatistician 04/27/21 Suleman Gustafson [address] [facility] [address] [facility] [place] [address] Hot Mill Worker 04/27/21 Testing Consultant Relationship Specialty Start Date End Date Rito Camp MD [address] [facility] [place] [address] PCP - General Family Medicine 01/27/21 Kami Hunter, ELDER [address] [facility] [place] [address] Clinical Biostatistician 04/27/21 Suleman Gustafson [address] [facility] [place] [address] Hot Mill Worker 04/27/21 Testing Consultant Relationship Specialty Start Date End Date Rito Camp MD [address] [facility] [place] [address] PCP - General Family Medicine 01/27/21 Kami Hunter, RN [address] [facility] [place] [address] Clinical Biostatistician 04/27/21 Suleman Gustafson [address] [facility] [place] [address] Hot Mill Worker 04/27/21 Testing Consultant Relationship Specialty Start Date End Date Rito Camp MD [address] [facility] [place] [address] PCP - General Family Medicine 01/27/21 Kami Hunter RN [address] [place] [address] Clinical Biostatistician 04/27/21 Suleman Gustafson [address] [place] [address] Hot Mill Worker 04/27/21 Testing Consultant Relationship Specialty Start Date End Date Rito Camp MD [address] [place] [address] PCP - General Family Medicine 01/27/21 Kami Hunter RN [address] [place] [address] Clinical Biostatistician 04/27/21 Suleman Gustafson [address] [place] [address] Hot Mill Worker 04/27/21 Testing Consultant Relationship Specialty Start Date End Date Rito Camp MD [address] [place] [address] PCP - General Family Medicine 01/27/21 Kami Hunter RN [address] [place] [address] Clinical Biostatistician 04/27/21 Suleman Gustafson [address] [place] [address] Hot Mill Worker 04/27/21 Testing Consultant Relationship Specialty Start Date End Date Rito Camp MD [address] [place] [address] PCP - General Family Medicine 01/27/21 Kami Hunter, ELDER [address] [place] [address] Clinical Biostatistician 04/27/21 Suleman Gustafson [address] [place] [address] Hot Mill Worker 04/27/21 Testing Consultant Relationship Specialty Start Date End Date Rito Camp MD [address] [facility] [place] [address] PCP - General Family Medicine 01/27/21 Kami Hunter RN [address] [place] [address] Clinical Biostatistician 04/27/21 Suleman Gustafson [address] [facility] [place] [address] Hot Mill Worker 04/27/21 Testing Consultant Relationship Specialty Start Date End Date Rito Camp MD [address] [facility] [place] [address] PCP - General Family Medicine 01/27/21 Kami Hunter RN [address] [place] [address] Clinical Biostatistician 04/27/21 Suleman Gustafson [address] [facility] [place] [address] Hot Mill Worker 04/27/21 Testing Consultant Relationship Specialty Start Date End Date Rito Camp MD [address] [facility] [place] [address] PCP - General Family Medicine 01/27/21 Suleman Gustafson [address] [place] [address] Hot Mill Worker 04/27/21 Ruth Denton, mule driverClinical Biostatistician 09/26/22 Testing Consultant Relationship Specialty Start Date End Date Rito Camp MD [address] [facility] [place] [address] PCP - General Family Medicine 01/27/21 Suleman Gustafson [address] [place] [address] Hot Mill Worker 04/27/21 Ruth Denton, mule driverClinical Biostatistician 09/26/22 Testing Consultant Relationship Specialty Start Date End Date Rito Camp MD [address] [place] [address] PCP - General Family Medicine 01/27/21 Suleman Gustafson [address] [place] [address] Hot Mill Worker 04/27/21 Ruth Denton, mule driverClinical Biostatistician 09/26/22 Testing Consultant Relationship Specialty Start Date End Date Rito Camp MD [address] [place] [address] PCP - General Family Medicine 01/27/21 Suleman Gustafson [address] [place] [address] Hot Mill Worker 04/27/21 Ruth Denton, mule driverClinical Biostatistician 09/26/22 Testing Consultant Relationship Specialty Start Date End Date Rito Camp MD [address] [place] [address] PCP - General Family Medicine 01/27/21 Suleman Gustafson [address] [place] [address] Hot Mill Worker 04/27/21 Ruth Denton, mule driverClinical Biostatistician 09/26/22 Testing Consultant Relationship Specialty Start Date End Date Rito Camp MD [address] [facility] [place] [address] PCP - General Family Medicine 01/27/21 Suleman Gustafson [address] [facility] [place] [address] Hot Mill Worker 04/27/21 Ruth Denton, mule driverClinical Biostatistician 09/26/22 Testing Consultant Relationship Specialty Start Date End Date Rito Camp MD [address] [facility] [place] [address] PCP - General Family Medicine 01/27/21 Suleman Gustafson [address] [facility] [place] [address] Hot Mill Worker 04/27/21 Ruth Denton, mule driverClinical Biostatistician 09/26/22 Testing Consultant Relationship Specialty Start Date End Date Rito Camp MD [address] [facility] [place] [address] PCP - General Family Medicine 01/27/21 Suleman Gustafson [address] [place] [address] Hot Mill Worker 04/27/21 Ruth Denton, mule driverClinical Biostatistician 09/26/22 Testing Consultant Relationship Specialty Start Date End Date Rito Camp MD [address] [place] [address] PCP - General Family Medicine 01/27/21 Suleman Gustafson [address] [place] [address] Hot Mill Worker 04/27/21 Kerrie Damian, ELDER [address] [place] [address] Clinical Biostatistician 02/04/23 Testing Consultant Relationship Specialty Start Date End Date Rito Camp MD [address] [facility] [place] [address] PCP - General Family Medicine 01/27/21 Suleman Gustafson [address] [place] [address] Hot Mill Worker 04/27/21 Kerrie Damian RN [address] [place] [address] Clinical Biostatistician 02/04/23 Testing Consultant Relationship Specialty Start Date End Date Rito Camp MD [address] [facility] [place] [address] PCP - General Family Medicine 01/27/21 Suleman Gustafson [address] [place] [address] Hot Mill Worker 04/27/21 Kerrie Damian RN [address] [place] [address] Clinical Biostatistician 02/04/23 Testing Consultant Relationship Specialty Start Date End Date Rito Camp MD [address] [facility] [place] [address] PCP - General Family Medicine 01/27/21 Suleman Gustafson [address] [place] [address] Hot Mill Worker 04/27/21 Kerrie Damian, ELDER [address] [place] [address] Clinical Biostatistician 02/04/23 Testing Consultant Relationship Specialty Start Date End Date Rito Camp MD [address] [facility] [place] [address] PCP - General Family Medicine 01/27/21 Suleman Gustafson [address] [place] [address] Hot Mill Worker 04/27/21 Kerrie Damian, ELDER [address] [place] [address] Clinical Biostatistician 02/04/23 Testing Consultant Relationship Specialty Start Date End Date Rito Camp MD [address] [facility] [place] [address] PCP - General Family Medicine 01/27/21 Suleman Gustafson [address] [place] [address] Hot Mill Worker 04/27/21 Kerrie Damian RN [address] [place] [address] Clinical Biostatistician 02/04/23 Testing Consultant Relationship Specialty Start Date End Date Rito Camp MD [address] [facility] [place] [address] PCP - General Family Medicine 01/27/21 Suleman Gustafson [address] [place] [address] Hot Mill Worker 04/27/21 Kerrie Damian, RN [address] [place] [address] Clinical Biostatistician 02/04/23 Testing Consultant Relationship Specialty Start Date End Date Rito Camp MD [address] [facility] [place] [address] PCP - General Family Medicine 01/27/21 Suleman Gustafson [address] [place] [address] Hot Mill Worker 04/27/21 Kerrie Damian, ELDER [address] [place] [address] Clinical Biostatistician 02/04/23 Testing Consultant Relationship Specialty Start Date End Date Rito Camp MD [address] [place], [place] [address] PCP - General Family Medicine 01/27/21 Suleman Gustafson [address] [place] [place] [address] Hot Mill Worker 04/27/21 Kerrie Damian RN [address] [place] [address] Clinical Biostatistician 02/04/23 Team Status: Active Member Role Status Dates Dr. Darvin Gold III, MD Family Provider Active Dr. Rito Camp MD Primary Care Provider Active Team Status: Inactive Member Role Status Dates Dr. Rito Camp MD Primary Care Provider, Referri ng Provider Active Sierra Dee YELLOW PAGES SPACE SALESPERSON, YELLOW PAGES SPACE SALESPERSON-C Attending Provider Active Team Status: Inactive Member [...] Dr. Jazz Collins MD Other Provider Active Testing Consultant Relationship Specialty Start Date End Date Rito Camp MD [address] [place] [address] PCP - General Family Medicine 01/27/21 Suleman Gustafson [address] [facility] [place] [address] Hot Mill Worker 04/27/21 Kerrie Damian RN [address] [place], [place] [address] Clinical Biostatistician 02/04/23 Testing Consultant Relationship Specialty Start Date End Date Rito Camp MD [address] [place] [address] PCP - General Family Medicine 01/27/21 Suleman Gustafson [address] [place] [address] Hot Mill Worker 04/27/21 Kerrie Damian, ELDER [address] [place], [place] [address] Clinical Biostatistician 02/04/23 Testing Consultant Relationship Specialty Start Date End Date Rito Camp MD [address] [facility] [place] [address] PCP - General Family Medicine 01/27/21 Suleman Gustafson [address] [place] [address] Hot Mill Worker 04/27/21 Kerrie Damian, RN [address] [place] [address] Clinical Biostatistician 02/04/23 Testing Consultant Relationship Specialty Start Date End Date Rito Camp MD [address] [facility] [place] [address] PCP - General Family Medicine 01/27/21 Suleman Gustafson [address] [facility] [address] RAINA [facility] [place] [address] Hot Mill Worker 04/27/21 Kerrie Damian, ELDER [address] [place] [address] Clinical Biostatistician 02/04/23 Testing Consultant Relationship Specialty Start Date End Date Rito Camp MD [address] [facility] [place] [address] PCP - General Family Medicine 01/27/21 Suleman Gustafson [address] [place] [address] Hot Mill Worker 04/27/21 Kerrie Damian, ELDER [address] [place] [address] Clinical Biostatistician 02/04/23 Testing Consultant Relationship Specialty Start Date End Date Rito Camp MD [address] [facility] [place] [address] PCP - General Family Medicine 01/27/21 Suleman Gustafson [address] [place] [address] Hot Mill Worker 04/27/21 Kerrie Damian RN [address] [place], [place] [id number] Clinical Biostatistician 02/04/23 Testing Consultant Relationship Specialty Start Date End Date Rito Camp MD [address] [place] [address] PCP - General Family Medicine 01/27/21 Suleman Gustafson [address] [place] [address] Hot Mill Worker 04/27/21 Kerrie Damian RN [address] [place] [address] Clinical Biostatistician 02/04/23 Testing Consultant Relationship Specialty Start Date End Date Rito Camp MD [address] [place] [address] PCP - General Family Medicine 01/27/21 Suleman Gustafson [address] [place] [address] Hot Mill Worker 04/27/21 Ruth Denton, mule driverClinical Biostatistician 09/26/22 02/03/23 Testing Consultant Relationship Specialty Start Date End Date Rito Camp MD [address] [place] [address] PCP - General Family Medicine 01/27/21 Kami Hunter RN [address] [place] [id number] Clinical Biostatistician 04/27/2109/03 Suleman Gustafson [address] [place] [address] Hot Mill Worker 04/27/21 Testing Consultant Relationship Specialty Start Date End Date Rito Camp MD [address] [place] [address] PCP - General Family Medicine 01/27/21 Suleman Gustafson [address] [facility] [place] [address] Hot Mill Worker 04/27/21 Ruth Denton RN Clinical Biostatistician 09/26/22 02/03/23 Testing Consultant Relationship Specialty Start Date End Date Rito Camp MD [address] [place] [address] PCP - General Family Medicine 01/27/21 Suleman Gustafson [address] [place] [address] Hot Mill Worker 04/27/21 Kerrie Damian, ELDER [address] [place] [id number] Clinical Biostatistician 02/04/23 Testing Consultant Relationship Specialty Start Date End Date Rito Camp MD [address] [place] [address] PCP - General Family Medicine 01/27/21 Suleman Gustafson [address] [place] [address] Hot Mill Worker 04/27/21 Ruth Denton, mule driverClinical Biostatistician 09/26/22 02/03/23 Testing Consultant Relationship Specialty Start Date End Date Rito Camp MD [address] [facility] [place] [address] PCP - General Family Medicine 01/27/21 Suleman Gustafson [address] [place] [address] Hot Mill Worker 04/27/21 Ruth Denton, mule driverClinical Biostatistician 09/26/22 02/03/23 Testing Consultant Relationship Specialty Start Date End Date Rito Camp MD [address] [facility] [place] [address] PCP - General Family Medicine 01/27/21 Suleman Gustafson [address] [place] [address] Hot Mill Worker 04/27/21 Kerrie Damian RN [address] [place] [address] Clinical Biostatistician 02/04/23 Testing Consultant Relationship Specialty Start Date End Date Rito Camp MD [address] [facility] [place] [address] PCP - General Family Medicine 01/27/21 Suleman Gustafson [address] [place] [address] Hot Mill Worker 04/27/21 Kerrie Damian RN [address] [place], [place] [phone] Clinical Biostatistician 02/04/23 Testing Consultant Relationship Specialty Start Date End Date Rito Camp MD [address] [facility] [place] [address] PCP - General Family Medicine 01/27/21 Suleman Gustafson [address] RAINA [facility] [place] [address] Hot Mill Worker 04/27/21 Kerrie Damian, ELDER [address] [place] [address]231 Clinical Biostatistician 02/04/23 Testing Consultant Relationship Specialty Start Date End Date Rito Camp MD [address] [place] [address] PCP - General Family Medicine 01/27/21 Suleman Gustafson [address] [facility] [place] [address] Hot Mill Worker 04/27/21 Christine [place], mule driverClinical Biostatistician 08/15/23 Testing Consultant Relationship Specialty Start Date End Date Rito Camp MD [address] [place] [address] PCP - General Family Medicine 01/27/21 Suleman Gustafson [address] [place] [address] Hot Mill Worker 04/27/21 Christine [place], mule driverClinical Biostatistician 08/15/23 Testing Consultant Relationship Specialty Start Date End Date Rito Camp MD [address] [place] [address] PCP - General Family Medicine 01/27/21 Suleman Gustafson [address] [place] [address] Hot Mill Worker 04/27/21 Christine [place], mule driverClinical Biostatistician 08/15/23 Testing Consultant Relationship Specialty Start Date End Date Rito Camp MD [address] [facility] [place] [address] PCP - General Family Medicine 01/27/21 Suleman Gustafson [address] [place] [address] Hot Mill Worker 04/27/21 Christine [place], mule driverClinical Biostatistician 08/15/23 Testing Consultant Relationship Specialty Start Date End Date Rito Camp MD [address] [place] [address] PCP - General Family Medicine 01/27/21 Suleman Gustafson [address] [place] [address] Hot Mill Worker 04/27/21 Christine [place], mule driverClinical Biostatistician 08/15/23 Testing Consultant Relationship Specialty Start Date End Date Rito Camp MD [address] [place] [address] PCP - General Family Medicine 01/27/21 Suleman Gustafson [address] [place] [address] Hot Mill Worker 04/27/21 Christine [place], mule driverClinical Biostatistician 08/15/23 Testing Consultant Relationship Specialty Start Date End Date Rito Camp MD [address] [place] [address] PCP - General Family Medicine 01/27/21 Suleman Gustafson [address] [place] [address] Hot Mill Worker 04/27/21 Christine [place], mule driverClinical Biostatistician 08/15/23 Testing Consultant Relationship Specialty Start Date End Date Rito Camp MD [address] [facility] [place] [address] PCP - General Family Medicine 01/27/21 Suleman Gustafson [address] [address] Hot Mill Worker 04/27/21 Christine [place] RN Clinical Biostatistician 08/15/23 Testing Consultant Relationship Specialty Start Date End Date Rito Camp MD [address] [facility] [place] [address] PCP - General Family Medicine 01/27/21 Suleman Gustafson [address] [place] [address] Hot Mill Worker 04/27/21 Christine [place], mule driverClinical Biostatistician 08/15/23 Team Status: Inactive Member Role Status Dates Dr. Rito Camp MD Primary Care Provider Active Sierra Dee YELLOW PAGES SPACE SALESPERSON, YELLOW PAGES SPACE SALESPERSON-C Attending Provider, Ruth reza Provider Active Testing Consultant Relationship Specialty Start Date End Date Rito Camp MD [address] [facility] [place] [address] PCP - General Family Medicine 01/27/21 Suleman Gustafson [address] [place] [address] Hot Mill Worker 04/27/21 Christine [place], mule driverClinical Biostatistician 08/15/23 Testing Consultant Relationship Specialty Start Date End Date Rito Camp MD [address] [facility] [place] [address] PCP - General Family Medicine 01/27/21 Suleman Gustafson [address] [place] [address] Hot Mill Worker 04/27/21 Christine [place], mule driverClinical Biostatistician 08/15/23 Testing Consultant Relationship Specialty Start Date End Date Rito Camp MD [address] [facility] [place] [address] PCP - General Family Medicine 01/27/21 Suleman Gustafson [address] [place] [address] Hot Mill Worker 04/27/21 Christine [place], mule driverClinical Biostatistician 08/15/23 Testing Consultant Relationship Specialty Start Date End Date Rito Camp MD [address] [facility] [place] [address] PCP - General Family Medicine 01/27/21 Suleman Gustafson [address] [place] [address] Hot Mill Worker 04/27/21 Christine [place], mule driverClinical Biostatistician 08/15/23 Testing Consultant Relationship Specialty Start Date End Date Rito Camp MD [address] [facility] [place] [address] PCP - General Family Medicine 01/27/21 Suleman Gustafson [address] [place] [address] Hot Mill Worker 04/27/21 Christine [place], mule driverClinical Biostatistician 08/15/23 Testing Consultant Relationship Specialty Start Date End Date Rito Camp MD [address] [facility] [place] [address] PCP - General Family Medicine 01/27/21 Suleman Gustafson [address] [place] [address] Hot Mill Worker 04/27/21 Christine [place], mule driverClinical Biostatistician 08/15/23 Testing Consultant Relationship Specialty Start Date End Date Rito Camp MD [address] [facility] [place] [address] PCP - General Family Medicine 01/27/21 Suleman Gustafson [address] [place] [address] Hot Mill Worker 04/27/21 Christine [place], mule driverClinical Biostatistician 08/15/23 Testing Consultant Relationship Specialty Start Date End Date Rito Camp MD [address] [facility] [place] [address] PCP - General Family Medicine 01/27/21 Suleman Gustafson [address] [place] [place] [address] Hot Mill Worker 04/27/21 Ruth Denton, mule driverClinical Biostatistician 09/26/22 02/03/23 Testing Consultant Relationship Specialty Start Date End Date Rito Camp MD [address] [facility] [place] [address] PCP - General Family Medicine 01/27/21 Kami Hunter RN [address] [place], [place] 0629731 Clinical Biostatistician 04/27/2109/03 Suleman Gustafson [address] [place] [address] Hot Mill Worker 04/27/21 Testing Consultant Relationship Specialty Start Date End Date Rito Camp MD [address] [place] [address] PCP - General Family Medicine 01/27/21 Kami Hunter RN [address] [place], [place] 4540331 Clinical Biostatistician 04/27/2109/03 Suleman Gustafson [address] [place] [address] Hot Mill Worker 04/27/21 Testing Consultant Relationship Specialty Start Date End Date Rito Camp MD [address] [facility] [place] [address] PCP - General Family Medicine 01/27/21 Suleman Gustafson [address] [place] [address] Hot Mill Worker 04/27/21 Christine [place] RN Clinical Biostatistician 08/15/23 Testing Consultant Relationship Specialty Start Date End Date Darvin Gold III, MD [place] PCP - General 11/30/02 01/26/21 Testing Consultant Relationship Specialty Start Date End Date Darvin Gold III, MD [place] PCP - General 11/30/02 01/26/21 Testing Consultant Relationship Specialty Start Date End Date Darvin Gold III, MD [place] PCP - General 11/30/02 01/26/21 Testing Consultant Relationship Specialty Start Date End Date Rito Camp MD [address] [facility] [place] [address] PCP - General Family Medicine 01/27/21 Suleman Gustafson [address] [place] [address] Hot Mill Worker 04/27/21 Christine [place], mule driverClinical Biostatistician 08/15/23 Testing Consultant Relationship Specialty Start Date End Date Rito Camp MD [address] [facility] [place] [address] PCP - General Family Medicine 01/27/21 Suleman Gustafson [address] [place] [address] Hot Mill Worker 04/27/21 Christine [place], mule driverClinical Biostatistician 08/15/23 Testing Consultant Relationship Specialty Start Date End Date Rito Camp MD [address] [facility] [place] [address] PCP - General Family Medicine 01/27/21 Suleman Gustafson [address] [place] [address] Hot Mill Worker 04/27/21 Christine [place], mule driverClinical Biostatistician 08/15/23 Testing Consultant Relationship Specialty Start Date End Date Rito Camp MD [address] [place] [address] PCP - General Family Medicine 01/27/21 Suleman Gustafson [address] [place] [address] Hot Mill Worker 04/27/21 Christine [place], mule driverClinical Biostatistician 08/15/23 Testing Consultant Relationship Specialty Start Date End Date Rito Camp MD [address] [place] [address] PCP - General Family Medicine 01/27/21 Suleman Gustfason [address] [place] [address] Hot Mill Worker 04/27/21 Christine [place], mule driverClinical Biostatistician 08/15/23 Testing Consultant Relationship Specialty Start Date End Date Rito Camp MD [address] [place] [address] PCP - General Family Medicine 01/27/21 Suleman Gustafson [address] [place] [address] Hot Mill Worker 04/27/21 Christine [place], mule driverClinical Biostatistician 08/15/23 Alex Brown APRN.COMPOUNDING AND FINISHING SUPERVISOR [address] [place], [place] [address] [facility] Family [facility] 08/08/24 Shanita Green PA-C [address] [place] [address] [facility] 08/08/24 Testing Consultant Relationship Specialty Start Date End Date Rito Camp MD [address] [place] [address] PCP - General Family Medicine 01/27/21 Suleman Gustafson [address] [place] [address] Hot Mill Worker 04/27/21 Alex Brown APRN.COMPOUNDING AND FINISHING SUPERVISOR [address] [place] [address] Refles[facility] Family [facility] 08/08/24 Shanita Green PA-C [address] [place] [address] [facility] Testing Consultant Relationship Specialty Start Date End Date Rito Camp MD [address] [place] [address] PCP - General Family Medicine 01/27/21 Suleman Gustafson [address] [place] [address] Hot Mill Worker 04/27/21 Alex Borwn APRN.COMPOUNDING AND FINISHING SUPERVISOR [address] [place] [address] [facility] 08/08/24 Shanita Green PA-C [address] [place] [address] [facility] 08/08/24 Testing Consultant Relationship Specialty Start Date End Date Rito Camp MD [address] [facility] [place] [address] PCP - General Family Medicine 01/27/21 Suleman Gustafson [address] [place] [address] Hot Mill Worker 04/27/21 Alex Brown, ALAN.COMPOUNDING AND FINISHING SUPERVISOR [address] [place] [address] Reflesher Family Medicine 08/08/24 Shanita Green PA-C [address] [facility] [place] [address] [facility] 08/08/24 Testing Consultant Relationship Specialty Start Date End Date Rito Camp MD [address] [facility] [place] [address] PCP - General Family Medicine 01/27/21 Suleman Gustafson [address] [place] [facility] [address] Hot Mill Worker 04/27/21 Alex Brown, ALAN.COMPOUNDING AND FINISHING SUPERVISOR [address] [place] [address] Refles[facility] Family [facility] 08/08/24 Shanita Green PA-C [address] [facility] [place] [address] [facility] 08/08/24 Testing Consultant Relationship Specialty Start Date End Date Rito Camp MD [address] [place] [address] PCP - General Family Medicine 01/27/21 Suleman Gustafson [address] [place] [address] Hot Mill Worker 04/27/21 Alex Brown APRN.COMPOUNDING AND FINISHING SUPERVISOR [address] [place] [address] [facility] 08/08/24 Shanita Green PA-C [address] [place] [address] [facility] 08/08/24 Testing Consultant Relationship Specialty Start Date End Date Rito Camp MD [address] [place] [address] PCP - General Family Medicine 01/27/21 Suleman Gustafson [address] [place] [address] Hot Mill Worker 04/27/21 Alex Brown APRN.COMPOUNDING AND FINISHING SUPERVISOR [address] [place] [address] [facility] 08/08/24 Shanita Green PA-C [address] [place] [address] [facility] 08/08/24 Testing Consultant Relationship Specialty Start Date End Date Rito Camp MD [address] [place] [address] PCP - General Family Medicine 01/27/21 Suleman Gustafson [address] [place] [address] Hot Mill Worker 04/27/21 Alex Brown APRN.COMPOUNDING AND FINISHING SUPERVISOR [address] [place] [address] Ref[facility] Family [facility] 08/08/24 Shanita Green PA-C [address] [facility] [place] [address] [facility] 08/08/24 Testing Consultant Relationship Specialty Start Date End Date Rito Camp MD [address] [facility] [place] [address] PCP - General Family Medicine 01/27/21 Suleman Gustafson [address] [place] [address] Hot Mill Worker 04/27/21 Alex Brown APRN.COMPOUNDING AND FINISHING SUPERVISOR [address] [place] [address] [facility] 08/08/24 Shanita Green PA-C [address] [facility] [place] [address] [facility] 08/08/24 Testing Consultant Relationship Specialty Start Date End Date Rito Camp MD [address] [facility] [place] [address] PCP - General Family Medicine 01/27/21 Suleman Gustafson [address] [place] [address] Hot Mill Worker 04/27/21 Alex Brown APRN.COMPOUNDING AND FINISHING SUPERVISOR [address] [place] [address] Reflesher Family [facility] 08/08/24 Shanita Green PA-C [address] [place] [address] [facility] 08/08/24 Testing Consultant Relationship Specialty Start Date End Date Rito Camp MD [address] [place] [address] PCP - General Family Medicine 01/27/21 Suleman Gustafson [address] [place] [address] Hot Mill Worker 04/27/21 Alex Brown APRN.COMPOUNDING AND FINISHING SUPERVISOR [address] [place] [address] [facility] 08/08/24 Shanita Green PA-C [address] [place] [address] [facility] 08/08/24 Testing Consultant Relationship Specialty Start Date End Date Rito Camp MD [address] [place] [address] PCP - General Family Medicine 01/27/21 Suleman Gustafson [address] [facility] [place] [place] [address] Hot Mill Worker 04/27/21 Alex Brown APRN.CNP [address] [place] [address] [id number] [facility] 08/08/24 Shanita Green PA-C [address] [place] [address] [id number] [facility] 08/08/24 Team Status: Active Member [...] Referring Provider Active Start: November 25, 2024 Testing Consultant Relationship Specialty Start Date End Date Rito Camp MD [address] [place] [address] [id number] PCP - General Family Medicine 01/27/21 12/06/24 Rito Camp MD [address] [place] [address] 733361 PCP - General Family Medicine 12/07/24 Suleman Gustafson [address] [address] Hot Mill Worker 04/27/21 Alex Brown APRN.COMPOUNDING AND FINISHING SUPERVISOR [address] [place] [address] [facility] 08/08/24 Shanita Green PA-C [address] [place] [address] [facility] 08/08/24 Testing Consultant Relationship Specialty Start Date End Date Rito Camp MD [address] [place], [place] [address]791 PCP - General Family Medicine 12/07/24 Suleman Gustafson [address] [place] [address] Hot Mill Worker 04/27/21 Alex Brown, ALAN.COMPOUNDING AND FINISHING SUPERVISOR [address] [place] [address] [facility] 08/08/24 Shanita Green PA-C [address] [place] [address] [facility] 08/08/24 Testing Consultant Relationship Specialty Start Date End Date Rito Camp MD [address] [place] [address] PCP - General Family Medicine 12/07/24 Suleman Gustafson [address] [place] [address] Hot Mill Worker 04/27/21 Alex Brown APRN.COMPOUNDING AND FINISHING SUPERVISOR [address] [place] [address] Reflesher Family [facility] 08/08/24 Shanita Green PA-C [address] [place] [address] [facility] 08/08/24 Testing Consultant Relationship Specialty Start Date End Date Rito Camp MD [address] [place] [address] PCP - General Family Medicine 12/07/24 Suleman Gustafson [address] [place] [address] Hot Mill Worker 04/27/21 Alex Brown, COLD STRIP FEEDER.COMPOUNDING AND FINISHING SUPERVISOR [address] [place] [address] [facility] 08/08/24 Shanita Green PA-C [address] [place] [address] [facility] 08/08/24 Testing Consultant Relationship Specialty Start Date End Date iRto [place] MD [address] [place] [address] PCP - General Family Medicine 12/07/24 Suleman Gustafson [address] [place] [address] Hot Mill Worker 04/27/21 Alex Brown APRN.CNP [address] [place] [address] [facility] 08/08/24 Shanita Green PA-C [address] [place] [address] [facility] 08/08/24 Team Status: Inactive Member [...] End: January 01, 2025 Sierra Dee NP, YELLOW PAGES SPACE SALESPERSON-C Attending Provider Active Start: January 01, 2025 End: January 01, 2025 Sierra Dee NP, YELLOW PAGES SPACE SALESPERSON-C Referring Provider Active Start: January 01, 2025 [...] February 09, 2025 End: February 09, 2025 Testing Consultant Relationship Specialty Start Date End Date Rito [place] MD [address] [place] [address] PCP - General Family Medicine 12/07/24 Suleman Gustafson [address] [place] [address] Hot Mill Worker 04/27/21 Alex Brown APRN.COMPOUNDING AND FINISHING SUPERVISOR [address] [place] [address] [facility] 02/01/25 Shanita Green PA-C [address] [place] [address] [facility] Family Medicine 02/01/25 Testing Consultant Relationship Specialty Start Date End Date Rito Camp MD [address] [place] [address] PCP - General Family Medicine 12/07/24 Suleman Gustafson [address] [place] [address] Hot Mill Worker 04/27/21 Alex Brown APRN.COMPOUNDING AND FINISHING SUPERVISOR [address] [place] [address] [facility] 02/01/25 Shanita Green PA-C [address] [place] [address] [facility] 02/01/25 Testing Consultant Relationship Specialty Start Date End Date Rito [place] MD [address] [place], [place] [address] PCP - General Family Medicine 12/07/24 Suleman Gustafson [address] [place] [address] Hot Mill Worker 04/27/21 Alex Brown APRN.COMPOUNDING AND FINISHING SUPERVISOR [address] [place], [place] 6[address] [facility] 02/01/25 Shanita Green PA-C [address] [place] [address] [phone] [facility] 02/01/25 Testing Consultant Relationship Specialty Start Date End Date Rito [place] MD [address] [place] [address] 263701 PCP - General Family Medicine 12/07/24 Suleman Gustafson [address] [place] [address] Hot Mill Worker 04/27/21 Alex Brown APRN.COMPOUNDING AND FINISHING SUPERVISOR [address] [place] [address] [facility] 02/01/25 Shanita Green PA-C [address] [place] [address] [facility] 02/01/25 Team Status: Active Member Role/Relationship Status [...] 2025 End: January 01, 2025 Sierra Dee YELLOW PAGES SPACE SALESPERSON, YELLOW PAGES SPACE SALESPERSON-C Attending Provider Active Start: January 01, 2025 End: January 01, 2025 Sierra Dee YELLOW PAGES SPACE SALESPERSON, YELLOW PAGES SPACE SALESPERSON-C Referring Provider Active Start: January 01, 2025 [...] Provider Active St art: March 31, 2025 Testing Consultant Relationship Specialty Start Date End Date Rito [place] MD [address] [place] [address] PCP - General Family Medicine 12/07/24 Suleman Gustafson [address] [place] [address] Hot Mill Worker 04/27/21 Alex Brown APRN.CNP [address] [place], [place] 0[address]641 [facility] 02/01/25 Shanita Green PA-C [address] [place], [place] [id number] [facility] 02/[facility]/25 Team Status: Inactive Member Role/Relationship Status Dates Dr. Rito [place] MD Primary Care Provider Active Start: January 01, 2025 End: January 01, 2025 Sierra Dee YELLOW PAGES SPACE SALESPERSON, YELLOW PAGES SPACE SALESPERSON-C Attending Provider Active Start: January 01, 2025 End: January 01, 2025 Sierra Dee YELLOW PAGES SPACE SALESPERSON, YELLOW PAGES SPACE SALESPERSON-C Referring Provider Active Start: January 01, 2025 [...] April 20, 2025 End: April 20, 2025 Testing Consultant Relationship Specialty Start Date End Date Rito [place] MD [address] [place], [place] [id number] PCP - General Family Medicine 12/07/24 Suleman Gustafson [address] [facility] [place] [address] Hot Mill Worker 04/27/21 Alex Brown APRN.COMPOUNDING AND FINISHING SUPERVISOR [address] [place], [place] [id number] [facility] 02/01/25 Shanita Green PA-C [address] [place], [place] [address]111 [facility] 02/01/25 Testing Consultant Relationship Specialty Start Date End Date Rito Camp MD [address] [place], [place] [phone] PCP - General Family Medicine 12/07/24 Suleman Gustafson [address] [place] [phone] Hot Mill Worker 04/27/21 Alex Brown APRN.COMPOUNDING AND FINISHING SUPERVISOR [address] [place] [address] [facility] 02/01/25 Shanita Green PA-C [address] [place] [address] [facility] 02/01/25 Team Status: Inactive Member Role/Relationship [...] 2025 End: April 20, 2025 Dr. Rito Capm MD Referring Provider Active Start: April 20, [...] 10, 2025 End: May 10, 2025 TRACI Orenlas Attending Provider Active Start: May 10, 2025 End: May 10, 2025 TRACI Ornelas Referring Provider Active Start: May 10, 2025 End: May 10, 2025 Testing Consultant Relationship Specialty Start Date End Date Rito Camp MD [address], [place] [phone] PCP - General Family Medicine 12/07/24 Suleman Gustafson [address] [place] [phone] Hot Mill Worker 04/27/21 Alex Brown APRN.CNP [address] [place] [address] [phone] [facility] Family Medicine 02/01/25 Shanita Green PA-C [address] [place] [address] [phone] [facility] Family Medicine 02/01/25 Testing Consultant Relationship Specialty Start Date End Date Rito Camp MD [address], [place] [phone] PCP - General Family Medicine 12/07/24 Suleman Gustafson [address] [place] [phone] Hot Mill Worker 04/27/21 Alex Brown APRN.COMPOUNDING AND FINISHING SUPERVISOR [address] [place], [place] [phone] [facility] 02/01/25 Shanita Green PA-C [address] [place] [address] [facility] 02/01/25 Testing Consultant Relationship Specialty Start Date End Date Rito Camp MD [address] [place] [id number] PCP - General Family Medicine 12/07/24 Suleman Gustafson [address] [place] [phone] Hot Mill Worker 04/27/21 Alex Brown APRN.COMPOUNDING AND FINISHING SUPERVISOR [address] [place] [id number] [facility] 02/01/25 Shanita Green PA-C [facility] [place] [address] [facility] 02/01/25 Team Status: Active Member Role/Relationship Status Dates Dr. Rito Camp MD Primary care physician Active Team Status: Inactive Member Role/Relationship Status Dates Dr. Rito Camp MD Primary care physician Active Start: February 09, 2025 End: February 09, 2025 Dr. Rito Camp MD Referring Provider Active Start: February 09, 2025 End: February 09, 2025 Letha Emery , [employer] SPACE SALESPERSON-C Attending physician Active Start: February 09, 2025 [...] 2025 End: April 20, 2025 Angella Cueto [employer] SP[employer] SALESPERSON-C Attending physician Active Start: April 20, 2025 End: April 20, 2025 Team Status: Active Member Role/Relationship Status Dates Dr. Rito Camp MD Primary care physician Active Start: May 06, 2025 Angella Cueto YELLOW [employer] SPACE SALESPERSON-C Attending physician Active Start: May 06, 2025 Angella Cueto YE[employer] SPACE SALESPERSON-C Referring Provider Active Start: May 06, 2025 Team Status: Inactive Member Role/Relationship Status Dates Dr. Rito Camp MD Primary care physician Active Start: May 10, 2025 End: May 10, 2025 Angella Cueto [employer] SPACE SALESPERSON-C Attending physician Active Start: May 10, 2025 End: May 10, 2025 Angella Cueto YELLOW [employer] SPACE SALESPERSON-C Referring Provider Active Start: May 10, 2025 [...] section and content) DATE CREATED AUTHOR 06/12/2025 [facility] DATE CREATED AUTHOR AUTHOR'S SHARONDAIZ ATION 07/11/2025 [facility] FOR RECORDS PERTAINING TO PATIENTS WHO ARE [...] BE BASED ON THE PRIMARY CLINICAL RECORDS. The [facility]. provides no warranty or guarantee of the accuracy or completeness of information in this document.
[2025-08-27] MEDS: Lactated Ringers 1,000 ML 15 ML IV (13:32)
--- NOTE | 2025-08-27 13:59 | PRE.ANES_ITS ---
ASA Classification* ASA Classification ASA Classification: 2 Assessment & Plan Anesthesia* Anesthesia Assessment Anesthesia Assessment: Discussed sedation and/or anesthesia options, risks, benefits, and alternatives with patient/parents/legal guardian/POA. Questions invited. The patient/parents/legal guardian/POA seems to understand and agrees to proceed with anesthesia plan. Reviewed the physical assessment, medical history, allergy history and patient home medications list prior to surgery/procedure/anesthetic and documented any changes. Performed airway and anesthesia risk assessments. Anesthesia Type Anesthesia Type: General History Source History Obtained from:: Patient and Chart Anesthesia Focused Assessment* Temperature: 98.2 F Pulse Rate: 89 Blood Pressure: 141/82 Respiratory Rate: 18 Pulse Ox: 96 Oxygen Delivery Method: Room Air Airway Assessment Mouth opens: >3 cm Mallampati Score: III Teeth Condition: Dentures (Patient has a full bridge on top. He will come out.) and Partial (Patient has a permanent bridge on the bottom.) Neck Range of motion (ROM): Full ROM Labs Anesthesia Preop lab: CBC WBC, (4.4-11.0) 16.0 K/mm3 H Today, 09:10 RBC, (4.2-5.4) 4.33 M/mm3 Today, 09:10 Hgb, (12.0-15.0) 14.7 g/dL Today, 09:10 Hct, (37-47) 42.3 % Today, 09:10 Plt Count, (150-450) 336 K/mm3 Today, 09:10 CHEMISTRY Potassium, (3.5-5.1) 4.4 mmol/L Today, 09:10 Sodium, (135-145) 136 mmol/L Today, 09:10 Magnesium, (1.6-2.6) 2.2 mg/dL 03/17/22, 18:03 Phosphorus, (2.5-4.9) 2.9 mg/dL 03/17/22, 18:03 BUN, (4-19) 13 mg/dL Today, 09:10 Creatinine, (0.70-1.20) 0.67 mg/dL L Today, 09:10 Glucose, (70-99) 89 mg/dL Today, 09:10 TSH, (0.358-3.74) 1.19 uIU/mL 02/28/21, 18:20 COAG Pre-Assessment Diagnosis/Proposed Procedure Planned Operative Procedure(s): Laparoscopic appendectomy Anesthesia History Anesthesia History - activity specialist: Anesthesia History - activity specialist Hx Hospitalization No 03/25/25 16:02 Any Problems With Anesthesia No 03/25/25 16:02 Cholinesterase deficiency No 03/25/25 16:02 You/Your Family Experience No 03/25/25 16:02 fever (hyperthermia) with Relationship Recent Exposure to Contagious No 03/31/25 07:10 Disease Does patient have nerve No 03/25/25 16:02 stimulator Patient instructed to have device shut off --Does patient have Pacemaker or ICD? When Was Last Pacemaker Check QUESTION #4 FULL TEXT: You/Your Family Experience fever (hyperthermia) with Anesthesia Last Oral Intake Last Oral intake: Last Oral Intake NPO since 07 Meds taken in AM with sips of water? Meds patient instructed to take am of surgery Any additional information?: Yes NPO since: 07:00 (Patient has 7 at 7 AM.) Meds taken in AM with sips of water?: Yes PONV PONV - activity specialist: PONV - activity specialist Female HX of Motion Sickness HX of N/V After Surgery Non-Smoker Duration of Surgery greater than 60 minutes Number of Risk Factors PONV Score Height & Weight Height & Weight: Anesthesia: Height & Weight Height 4 ft 9 in 08/27/25 08:32 Weight: 40.098 kg 08/27/25 08:32 Body Mass Index (BMI) 19.1 08/27/25 08:32 Respiratory Assessment Respiratory Assessment - activity specialist: Respiratory Tract Infection Hx - activity specialist Hx Respiratory Tract Infection No 03/25/25 16:02 STOP Sleep Apnea STOP Sleep Apnea - activity specialist: STOP Sleep Apnea - activity specialist Hx Hypertension Yes: PER PT, CONTROLLED ON 03/25/25 16:02 MEDS Hx Sleep Apnea No 03/31/25 09:05 CPAP Yes 03/31/25 08:55 BIPAP Yes 06/26/18 15:33 Do you snore loudly (louder than talking or can be heard Do you often feel tired/ fatigued/ sleepy during daytime? Has anyone observed you stop breathing during sleep? STOP Results QUESTION #5 FULL TEXT : Do you snore loudly (louder than talking or can be heard through closed doors)? Tobacco Use History Tobacco Use History - activity specialist: Tobacco Use History - activity specialist Tobacco Use Smoking Status Current every day smoker 08/27/25 09:20 Hx Tobacco Use No 03/25/25 16:02 Years Smoking Packs Smoked per Day Smoking Cessation Date was within the last 15 years Hx Smoking Cessation Date 02/24/16 08/27/25 09:20 Hx Smoking Cessation No 08/27/25 09:20 Counseling Any additional information?: Yes Tobacco Use: Non-smoker (Patient quit smoking 9 years ago.) Hematologic Medial History Hematologic Hx - activity specialist: Hematologic Medical Hx - supervisor special education Hx of Blood Transfusion Hx of Transfusion in last 3 Months Date of Last Transfusion (if within last 3 months) Ever experience any problems with transfusion(s)? Specify any problems Hx of Preganancy in last 3 Months Nurse Filling Out Transfusion & Questions: Date: Time: Patient unable to answer at this time (ie. confused, unrespo /Reproduction History /Reproductive History - activity specialist: /Reproductive Hx- activity specialist Hx Now Gestational Age (in weeks): EDC: Hx Hx Para Hx Section SAB No 03/25/25 16:02 Does the father of the baby or his family experience fever w Father of the baby Malignant Hypertension history comment Active Medications Active Medications: Current Medications Generic Name Dose Route Start Last Admin Trade Name Freq PRN Reason Stop Dose Admin Lactated Ringer's 1,000 mls @ 100 mls/hr 08/27/25 11:15 IV .Q10H JUAN Lactated Ringer's 1,000 mls @ 15 mls/hr 08/27/25 13:30 08/27/25 13:32 IV 15 mls/hr .Q48H JUAN Administration PFSH Medical History Alcohol use Easy bruising Gastric reflux History of stress test History of echocardiogram History of abdominal aortic aneurysm Vitamin D toxicity Uterine fibroid Former smoker Asthma COPD (chronic obstructive pulmonary disease) Hypertension Partial small bowel obstruction COVID-19 HSV (herpes simplex virus) anogenital infection Overactive bladder Emphysema of lung Benign essential HTN Postmenopausal atrophic vaginitis Lung mass Climacteric Lumbar spinal stenosis Peripheral neuropathy Recurrent manic disorder Cervicalgia Generalized hyperhidrosis Chronic interstitial cystitis RODRIGUEZ (dyspnea on exertion) Anxiety associated with depression Chronic pain disorder Sleep-related breathing disorder Stage 2 moderate COPD by GOLD classification Esophageal obstruction due to food impaction Arnold-Chiari deformity COPD, moderate Alcohol abuse Osteoporosis Home Medications ?Medication ?Instructions ?Recorded ?Last Taken ?Type ascorbic acid (vitamin C) 500 mg 1,000 mg PO DAILY sup plement 06/26/18 08/26/25 History tablet,extended release biotin 5,000 mcg sublingual tablet 5,000 mcg sublingua l DAILY 02/23/21 08/26/25 History supplement cyanocobalamin (vitamin B-12) 2,500 mcg PO DAILY suppl ement 04/27/21 08/26/25 History 2,500 mcg tablet acyclovir 400 mg tablet 400 mg PO BID female issue 0 04/16/22 08/26/25 History calcium carbonate (Calcium 600) 600 mg PO BID bones 08/26/25 History amlodipine 2.5 mg tablet (Norvasc) 2.5 mg PO DAILY Blo od pressure 01/01/24 08/27/25 History trazodone 150 mg tablet 200 mg PO QHS 07/21/2408/26 History montelukast 10 mg tablet 10 mg PO QPM breathing #90 t abs 10/19/24 08/26/25 Rx omeprazole 40 mg capsule,delayed 40 mg PO DAILY acid r eflux #90 caps 12/17/24 08/26/25 Rx release albuterol sulfate 90 mcg/actuation 2 puff inhalation Q 6H PRN 02/09/25 Unknown Rx aerosol inhaler (ProAir HFA) shortness of breath or wh eezing #3 ea folic acid 400 mcg tablet 0.4 mg PO QDAY 06/08/2508/03 History budesonide-formoterol HFA 160 2 inh inhalation BID #3 ea 08/03/25 08/26/25 Rx mcg-4.5 mcg/actuation aerosol inhaler (Breyna) quetiapine 50 mg tablet 50 mg PO QHS 08/27/25 History Allergy/AdvReac Type Severity Reaction Status Date / Time Fish Containing Products Allergy Severe Angioedema Verified 08/27/25 08:34 shellfish derived Allergy Severe Angioedema Verified 08/27/25 08:34 Horse/Equine Containing Allergy Unknown NEEDS Verified 08/27/25 08:34 Products FOLLOW-UP lisinopril Allergy Unknown Unknown Verified 08/27/25 08:34 Family History Father Hypertension Aortic aneurysm Cancer skin and bladder Colon cancer Mother Brain aneurysm Depression Surgical History H/O Spinal surgery H/O eye surgery History of bilateral tubal ligation S/P craniotomy Social History household members: none Smoking Status: Current every day smoker tobacco type: cigarettes second hand exposure: No alcohol intake: current alcohol intake frequency: 3 or more drinks per day Alcohol type: beer details: Drinks 5-6 beers daily, nearly no breaks in her days of intake. substance use type: does not use caffeine: Yes what type of physical activity do you participate in: walking and 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 Review of Systems (Anesthesia) ROS Narrative System reviewed and no additional complaints, except as documented. Physical Exam Resp clear to auscultation bilaterally
--- NOTE | 2025-08-27 14:55 | PCM.HP.STD ---
HPI - General General Date of Admission: 08/27/25 Date of Service: 08/27/25 HPI Narrative JEYSON MARTINEZ, is a 70 F who presented to the emergency department at [facility] this morning with abdominal pain for about 12 hours prior to arrival. Patient has past medical history of alcohol use, asthma, COPD, tobacco use, hypertension and lung mass. She states that she began having abdominal pain about 6 PM last night. She initially thought she had another bowel obstruction. She states she has had previous bowel obstructions in the past for uncertain reasons. She has never had previous abdominal surgery. She was seen evaluated by the ER staff. She had a leukocytosis with a white count of 16,000. CT scan was performed and showed findings consistent with mild appendicitis. General surgery was contacted and plans for immediately put in place to proceed with appendectomy once in OR became available. No evidence of bowel obstruction was noted on CT scan [facility] Medical History Alcohol use Easy bruising Gastric reflux History of stress test History of echocardiogram History of abdominal aortic aneurysm Vitamin D toxicity Uterine fibroid Former smoker Asthma COPD (chronic obstructive pulmonary disease) Hypertension Partial small bowel obstruction COVID-19 HSV (herpes simplex virus) anogenital infection Overactive bladder Emphysema of lung Benign essential HTN Postmenopausal atrophic vaginitis Lung mass Climacteric Lumbar spinal stenosis Peripheral neuropathy Recurrent manic disorder Cervicalgia Generalized hyperhidrosis Chronic interstitial cystitis RODRIGUEZ (dyspnea on exertion) Anxiety associated with depression Chronic pain disorder Sleep-related breathing disorder Stage 2 moderate COPD by GOLD classification Esophageal obstruction due to food impaction Arnold-Chiari deformity COPD, moderate Alcohol abuse Osteoporosis Home Medications ?Medication ?Instructions ?Recorded ?Last Taken ?Type ascorbic acid (vitamin C) 500 mg 1,000 mg PO DAILY supplement 06/26/18 08/26/25 History tablet,extended release biotin 5,000 mcg sublingual tablet 5,000 mcg sublingual DAILY 02/23/21 08/26/25 History supplement cyanocobalamin (vitamin B-12) 2,500 mcg PO DAILY supplement 04/27/21 08/26/25 History 2,500 mcg tablet acyclovir 400 mg tablet 400 mg PO BID female issue 04/16/22 08/26/25 History calcium carbonate (Calcium 600) 600 mg PO BID bones 06/01/23 08/26/25 History amlodipine 2.5 mg tablet (Norvasc) 2.5 mg PO DAILY Blood pressure 01/01/24 08/27/25 History trazodone 150 mg tablet 200 mg PO QHS 07/21/24 08/26/25 History montelukast 10 mg tablet 10 mg PO QPM breathing #90 tabs 10/19/24 08/26/25 Rx omeprazole 40 mg capsule,delayed 40 mg PO DAILY acid reflux #90 caps 12/17/24 08/26/25 Rx release albuterol sulfate 90 mcg/actuation 2 puff inhalation Q6H PRN 02/09/25 Unknown Rx aerosol inhaler (ProAir HFA) shortness of breath or wheezing #3 ea folic acid 400 mcg tablet 0.4 mg PO QDAY 06/08/25 08/26/25 History budesonide-formoterol HFA 160 2 inh inhalation BID #3 ea 08/03/25 08/26/25 Rx mcg-4.5 mcg/actuation aerosol inhaler (Breyna) quetiapine 50 mg tablet 50 mg PO QHS 08/27/25 08/26/25 History Allergy/AdvReac Type Severity Reaction Status Date / Time Fish Containing Products Allergy Severe Angioedema Verified 08/27/25 08:34 shellfish derived Allergy Severe Angioedema Verified 08/27/25 08:34 Horse/Equine Containing Allergy Unknown NEEDS Verified 08/27/25 08:34 Products FOLLOW-UP lisinopril Allergy Unknown Unknown Verified 08/27/25 08:34 Family History Father Hypertension Aortic aneurysm Cancer skin and bladder Colon cancer Mother Brain aneurysm Depression Surgical History H/O Spinal surgery H/O eye surgery History of bilateral tubal ligation S/P craniotomy Social History household members: none Smoking Status: Current every day smoker tobacco type: cigarettes second hand exposure: No alcohol intake: current alcohol intake frequency: 3 or more drinks per day Alcohol type: beer details: Drinks 5-6 beers daily, nearly no breaks in her days of intake. substance use type: does not use caffeine: Yes what type of physical activity do you participate in: walking and other details: rosario LIAO Constitutional Constitutional: Reports systems reviewed and no addt'l complaints, except as documented Eyes Eyes: Reports systems reviewed and no addt'l complaints, except as documented ENT HEENT: Reports systems reviewed and no addt'l complaints, except as documented Cardiovascular Cardiovascular: Reports systems reviewed and no addt'l complaints, except as documented Respiratory/Chest Respiratory/Chest: Reports systems reviewed and no addt'l complaints, except as documented Gastrointestinal Gastrointestinal: Reports systems reviewed and no addt'l complaints, except as documented Genitourinary Genitourinary: Reports systems reviewed and no addt'l complaints, except as documented Musculoskeletal Musculoskeletal: Reports systems reviewed and no addt'l complaints, except as documented Patient's Goals Of Care . What would you like to achieve or improve as a result of your hospital stay?: x Vital Signs Vital Signs Vital Signs: 08/27/25 08:32 08/27/25 10:32 08/27/25 11:29 Temperature 98.2 F 98.2 F Temperature Source Oral Pulse Rate 96 96 89 Respiratory Rate 18 18 Blood Pressure 132/88 H 133/75 H 141/82 H Blood Pressure Mean 102 94 101 Blood Pressure Source Blood Pressure Position Blood Pressure Location Pulse Ox 97 97 Oxygen Delivery Method Room Air Oxygen Flow Rate (L/min) 08/27/25 11:31 08/27/25 11:32 08/27/25 14:11 Temperature 98.2 F Temperature Source Pulse Rate 89 Respiratory Rate 18 Blood Pressure 141/82 H Blood Pressure Mean Blood Pressure Source Blood Pressure Position Blood Pressure Location Pulse Ox 81 96 96 Oxygen Delivery Method Room Air Nasal Cannula Room Air Oxygen Flow Rate (L/min) 2 08/27/25 14:15 Temperature 99.1 F Temperature Source Temporal Pulse Rate 89 Respiratory Rate 18 Blood Pressure 127/82 H Blood Pressure Mean 97 Blood Pressure Source Monitor Blood Pressure Position Semi-Fowlers Blood Pressure Location Right Arm Pulse Ox 89 Oxygen Delivery Method Room Air Oxygen Flow Rate (L/min) Weight Weight: 88 lb 6.4 oz Body Mass Index (BMI) 19.1 Physical Exam Narrative She is alert and oriented x 3. She is in no acute distress. Head is normocephalic and atraumatic. Pupils are equal round and reactive to light. Abdomen is soft and nondistended. Mild lower abdominal tenderness with palpation. No rebound or guarding Results Lab / Micro Data 08/27/25 09:10 08/27/25 09:10 Labs: Laboratory Results - last 24 hr 08/27/25 09:10: WBC 16.0 H, RBC 4.33, Hgb 14.7, Hct 42.3, MCV 97.7, MCH 33.9 H, MCHC 34.8, RDW Std Deviation 43.6, RDW Coeff of Jordon 12.0, Plt Count 336, MPV 9.2, Immature Gran % (Auto) 0.400, Neut % (Auto) 83.5 H, Lymph % (Auto) 6.6 L, Tyler % (Auto) 9.0, Eos % (Auto) 0.1, Baso % (Auto) 0.4, Absolute Neuts (auto) 13.3 H, Absolute Lymphs (auto) 1.06, Nucleated RBC % 0, Sodium 136, Potassium 4.4, Chloride 100, Carbon Dioxide 24.0, Anion Gap 12, BUN 13, Creatinine 0.67 L, Estim Creat Clear Calc 42.01 L, Est GFR (MDRD) Non-Af 95, BUN/Creatinine Ratio 19.3, Glucose 89, Calcium 9.3, Total Bilirubin 0.58, AST 23, ALT 14, Alkaline Phosphatase 61, Total Protein 7.3, Albumin 4.2, Globulin 3.2, Albumin/Globulin Ratio 1.3, Lipase 42 08/27/25 09:23: Urine Color Yellow, Urine Clarity Sl. Cloudy, Urine pH 6.0, Ur Specific [place] 1.015, Urine Protein 15 H, Urine Glucose (UA) Normal, Urine Ketones 50 H, Urine Occult Blood 25 H, Urine Nitrite Negative, Urine Bilirubin Negative, Urine Urobilinogen Normal, Ur Leukocyte Esterase Negative, Urine RBC 0 SEEN, Urine WBC 0 SEEN, Ur Squamous Epith Cells 0-5 SEEN, Urine Bacteria 0 SEEN, Urine Mucus 0 SEEN Imaging Radiology Impression Abdomen/Pelvis CT 08/27/25 08:46 IMPRESSION: 1. Mildly dilated appendix with periappendiceal inflammatory changes compatible with acute appendicitis. 2. No evidence of bowel obstruction Reading Location: [id number] Assessment & Plan Assessment/Plan (1) Acute appendicitis: (2) Abdominal pain: PLAN: Plan The patient is a 70-year-old female with abdominal pain and CT scan findings consistent with appendicitis. She has an associated leukocytosis. She was subsidy admitted and placed on IV antibiotics. The plan is to proceed with laparoscopic appendectomy once an OR becomes available. We discussed the details of the planned procedure including risks benefits and alternatives. She wishes to proceed. Surgery will begin once the OR opens up Charges/Coding Visit Charges Inpatient E&M: 26706 Init Hosp L3
--- NOTE | 2025-08-27 16:00 | APP_PTH ---
PATIENT: JENA MARTINEZ LOC: MS3 U#:[id number] AGE/SX: 70/F ROOM: MS313 RE08/27/[address]: Dr. Cruz Baeza MD : 1955 BED: 1 DIS: 08/29/2025 SPEC #: [id number] RECD: 08/30/25 08:22 STATUS: NICOLE BLASContreras #: [id number] MICH: 08/27/25 16:[address]: Cruz Baeza DEPT: SURGICAL PATHOLOGY RECD BY: Jena Ortiz Gareth ENTERED: 08/30/25 08:37 SP TYPE: APPENDIX OTHR DR: Dr. Rito Chew MD Tissues: Appendix, NOS Procedures: Immunohistochemical Stains Surgery Specimen Level III IHC Stain ADDITIONAL HEADER OPERATION: Laparoscopic, appendectomy PRE-OP DIAGNOSIS: Acute appendicitis, abdominal pain TISSUE SUBMITTED: A. Appendix MICROSCOPIC DIAGNOSIS A. Appendix, laparoscopic appendectomy: - Acute appendicitis with perforation confined to the mackenzie-appendiceal adipose. - Multiple mesothelial inclusions - see note. Note: IHC is positive for CK5/6 and Calretinin, supporting the diagnosis of mesothelial inclusions. CD10 is negative for endometrial stroma (endometriosis). MICROSCOPIC DESCRIPTION Slides are reviewed. All matched controls reacted appropriately. These tests were developed and their performance characteristics determined by [facility]. They may not have been cleared or approved by the U.S. Food and Drug Administration. The FDA has determined that such clearance or approval is not necessary. The above immunohistochemical markers and/or special?stains have been reviewed by the Pathologist. GROSS DESCRIPTION The specimen is received in one properly labeled container with the patient's name and accession number. A. The specimen is designated appendix and consists of a 5.7 cm in length and 0.8 cm in average diameter vermiform appendix with a minimal amount of attached adipose tissue and a staple line extending from the proximal appendix onto the adipose tissue. ?The serosal surfaces are hurley-jimenez with focal purple-jimenez dusky discoloration and a minimal amount of loosely attached pale hurley possible exudate at the distal aspect of the appendix. ?Sectioning through the appendix reveals a mildly dilated lumen in the proximal aspect (0.3 cm in diameter). ?Distal to the dilated area, underlying the attached exudate, is a thickened appendiceal wall (0.4 cm) with a corresponding hemorrhagic mucosa. ?At the site of the thickened wall is a 0.3 cm possible defect involving the adjacent adipose tissue. ?Sectioning through the distal appendiceal tip reveals irregular, mildly disrupted, fibrotic dos santos. ?RS 2 Cassettes: A1, proximal resection margin (en-face) and bisected distal tip A2, maintenance representative cross sections of appendiceal wall to include thickened wall and possible defect [facility] 08/30/2025 CPT: 45503 ,[id number]
[2025-08-27] MEDS: Lidocaine 1% (5 ml sdv) 5 ML Vial 3 ML IV (16:34)
[2025-08-27] MEDS: fentaNYL 100 MCG/2 ML Ampul IV (17:06)
[2025-08-27] MEDS: Bupiv/Epi 0.25% 30 ML Vial (17:14)
--- NOTE | 2025-08-27 17:20 | PCM.OPRPT ---
Procedures Digestive 40xxx-49xxx: 56004 Laparoscopy appendectomy Operative Report (Standard) Operative Information Date of Procedure: 08/27/25 Pre-Operative Diagnosis: Acute appendicitis Post-Operative Diagnosis: Acute appendicitis Surgery/Procedure Performed: Laparoscopic appendectomy sneller hand: Yes Field Administrative Assistant: Lizeth Parker Tasks completed by special education teaching assistant: Closing and Other Additional sales and marketing assistant?: No Type of Anesthesia: General and Local RN Documented Start/Stop Times: Operation Date: 08/27/25 16:00 Case Time Into Pre-Op 08/27/25 13:16 Anesthesia Start 08/27/25 16:26 Into Room 08/27/25 16:26 Procedure Start 08/27/25 16:46 Procedure End 08/27/25 17:19 Procedure Start Time: 16:46 Procedure Stop Time: 17:19 Select all DRAINS/GRAFTS/IMPLANTS that apply: None Special Medications: IV Zosyn Estimated Blood Loss: 20 mL Specimen collected: Yes Description of specimen(s) removed: Appendix Description of surgery: The patient is a 70-year-old female who presented to the emergency department earlier this morning with lower abdominal pain for about 12 hours prior to arrival. She was seen evaluated by the ER staff. She was found to have a leukocytosis and CT scan was ordered and showed findings consistent with appendicitis. She was subsidy admitted for planned appendectomy. We discussed the details of the planned procedure including the risks benefits and alternatives. She wished to proceed. Patient was brought to the operating today following informed consent. Preoperative antibiotics were given and a timeout was performed. She was placed supine on the operative table with arms outstretched and arm boards. A general endotracheal anesthesia was induced. The abdomen was then prepped and draped in the usual sterile manner. A 5 mm incision was made just below the umbilicus which a 5 mm trocar was placed optically. This was placed without incident. Once in place the abdomen was then fully insufflated with CO2 gas. A 5 mm 0 degree scope was inserted. There were no signs of bowel or vascular injury. A 5 mm trocar was placed under direct visualization in the left lower quadrant. A 12 mm trocar was placed in the left upper quadrant. These were placed without incident and placed under direct visualization. The patient was then placed in mild normal to the left to oppose the right lower quadrant further. The cecum was identified. It was reflected in a cephalad direction. This exposed the appendix. This was freed up. The appendix was grasped near the base using bowel graspers. A [place] dissector was then used to create a small window in the mesoappendix. Through this opening, a NEW stapler was inserted. It was then fired across the base of the appendix flush with the cecum. Next, 2 vascular loads were required to go across the mesoappendix. This freed up the specimen. There was some bleeding from a small focus of the staple line from the initial appendix transection. Bleeding was promptly controlled using a [place] dissector and extremely brief pulse of cautery. This promptly obtained hemostasis. There were no signs of bowel injury or arcing from the cautery. The right lower quadrant was then copiously irrigated. Hemostasis was excellent. A total of 1 L of saline was irrigated and suctioned out. The specimen was then placed into a bag and brought out through the 12 mm trocar site. The fascia at the 12 mm trocar site was closed using 0 PDS with the aid of the fascial closure device. Once this was tied down, this closed the fascia nicely. The remaining trocars were opened up. Insufflation was allowed to escape. Local anesthetic was injected into each of the incisions. A total of 30 cc were utilized throughout the course of the operation. The incisions were then closed with 4-0 Vicryl. Skin glue was applied as dressing. She was awakened from anesthesia and taken to recovery in good condition Surgical Findings: Mild appendicitis Complications Complications: No Admit VTE Documentation VTE Present on Admission: No VTE Mechan Device Prophylaxis: SCD's VTE Pharm Prophylaxis ordered?: No Reason prophylaxis not ordered: Treatment Not Indicated
--- NOTE | 2025-08-27 17:40 | PCM.POST.ANE ---
Anesthesia: Postop Eval I Current Vital Signs Temperature: 100.3 F Pulse Rate: 90 Blood Pressure: 138/88 Respiratory Rate: 16 Pulse Ox: 95 Oxygen Delivery Method: Room Air Assessment Airway patent: Yes Spontaneous unlabored respirations: Yes Mental status: Awake and Calm nausea: No Vomiting: No Anesthesia Complication: No Fluid Hydration Crystalloid volume administer (ml): 450 Total IV fluid infused: 450 Progress Note Anesthesia document: Postop Eval 1 completed: Yes
--- NOTE | 2025-08-27 18:16 | PCM.POSTANE2 ---
Anesthesia Postop Eval I Sum Postop Eval Completion status Anesthesia document: Postop Eval 1 completed: Yes Anesthesia Postop Eval I Summary Anesthesia Postop Eval I Summary: Anesthesia Postop Eval I: Assessment Summary Airway patent Yes 08/27/25 17:43 Spontaneous unlabored Yes 08/27/25 17:43 respirations Mental status Awake,Calm 08/27/25 17:43 nausea No 08/27/25 17:43 Vomiting No 08/27/25 17:43 Anesthesia Postop Eval I: Fluid Summary Crystalloid volume administer 450 08/27/25 17:43 (ml) Colloids volume administered ( ml) Blood Product volume administered (ml) Total IV fluid infused 450 08/27/25 17:43 Anesthesia Postop Eval I: Summary Notes Anesthesia Complication No 08/27/25 17:43 Anesthesia Complication Comment: Post-operative progress note Anesthesia: Postop Eval II Evaluation Mental status: Awake and Calm Pain Level: 1 nausea: No Vomiting: No Complications Anesthesia Complication: No
[2025-08-27] MEDS: Lactated Ringers 1,000 ML 100 ML IV (18:43)
[2025-08-27] MEDS: 0.9% Normal Saline (250mL Bag) 250 ML 15 ML IV (20:58)
[2025-08-27] MEDS: 0.9% Normal Saline (1000mL) 1,000 ML 100 ML IV (23:09)
[2025-08-28] VITALS (11 sets, daily range): BP systolic 93–134; BP diastolic 52–79; PULSE 77–98; RESP 18–20; TEMP 36.7–37.9; O2SAT 86–99
[2025-08-28 05:47] LABS: Hematocrit 36.3 % (37-47); Hemoglobin 12.1 g/dL (12.0-15.0); Immature Granulocytes Count 0.030 X10^3/uL (0.0-0.0); Mean Corp Hgb Conc 33.3 g/dL (32-36); Mean Corpuscular Volume 101.7 fL (81-99); Mean Platelet Vol. 9.1 fl (6.2-12.0); NRBC Flagged by Analyzer 0 % (0-5); Platelet Count 224 K/mm3 (150-450); RBC Distribution Width CV 12.6 % (11.6-14.6); RBC Distribution Width SD 47.4 fl (35.1-43.9); Red Blood Count 3.57 M/mm3 (4.2-5.4); White Blood Count 9.5 K/mm3 (4.4-11.0)
[2025-08-28 06:13] LABS: Anion Gap 7 (7-18); BUN 6 mg/dL (4-19); BUN/Creat Ratio 10.7 RATIO (10-20); Calcium,Total 7.7 mg/dL (7.6-11.0); Carbon Dioxide 24.6 mmol/L (20.0-29.0); Chloride 104 mmol/L (96-106); Estimated Creatinine Clearance 42.01 ml/min (50-250); Glucose 92 mg/dL (70-99); Potassium 4.1 mmol/L (3.5-5.1)
[2025-08-28] MEDS: Piperacil/Tazobactam 3.375 GM in 0.9% Normal Saline (50mL MB+) 50 ML IV ×3 (06:27→21:12)
[2025-08-28] MEDS: 0.9% Normal Saline (1000mL) 1,000 ML 100 ML IV (08:55)
--- NOTE | 2025-08-28 10:45 | NURSING ---
when resting, when takes deep breath after being reminded, spo2 up to 90%. o2 2L NC applied and spo2 93% within less than 5 minutes.
[2025-08-28] MEDS: 0.9% Saline Lock 10 ML Syringe IV ×3 (12:11→15:27)
--- NOTE | 2025-08-28 12:49 | PCM.PN.SRG ---
Subjective Subjective Patient seen and evaluated on rounds this morning. She seems to be doing well following her appendectomy late yesterday afternoon. She has been up and ambulating several times according to nursing staff. She remains on oxygen via nasal cannula. Nursing states that her sats dropped into the upper 80s when off of oxygen. Patient does not typically use oxygen at home however she did in the past. She does have issues with COPD and asthma. We encouraged her to continue to ambulate and use incentive spirometry today. Otherwise she seems motivated to get home later today if possible. Blood work and vital signs without issues Objective Data Objective Data Vital Signs: Vital Signs Temp Pulse Resp BP Pulse Ox O2 Del Method O2 Flow Rate 98.5 F 97 18 101/65 87 Nasal Cannula 1 08/28/25 08:49 08/28/25 08:49 08/28/25 08:49 08/28/25 08:49 08/28/25 10:40 08/28/25 08:49 08/28/25 08:49 Oxygen Flow Rate (L/min) 1 Oxygen Delivery Method Nasal Cannula Weight: 88 lb 6.4 oz Body Mass Index (BMI) 19.1 Intake & Output: Intake and Output for Last 24 Hours 08/26/25 08/27/25 08/28/25 23:59 23:59 23:59 Intake Total 1549.92 / 1549.92 Output Total 3 / 3 Balance 1546.92 / 1546.92 Lab / Micro Data 08/28/25 05:22 08/28/25 05:22 Labs: Laboratory Results - last 24 hr 08/28/25 05:22: WBC 9.5, RBC 3.57 L, Hgb 12.1, Hct 36.3 L, MCV 101.7 H, MCH 33.9 H, MCHC 33.3, RDW Std Deviation 47.4 H, RDW Coeff of Jordon 12.6, Plt Count 224, MPV 9.1, Immature Gran % (Auto) 0.300, Neut % (Auto) 72.4 H, Lymph % (Auto) 14.5 L, [place] % (Auto) 10.2 H, Eos % (Auto) 2.1, Baso % (Auto) 0.5, Absolute Neuts (auto) 6.9, Absolute Lymphs (auto) 1.38, Nucleated RBC % 0, Sodium 135, Potassium 4.1, Chloride 104, Carbon Dioxide 24.6, Anion Gap 7, BUN 6, Creatinine 0.61 L, Estim Creat Clear Calc 42.01 L, Est GFR (MDRD) Non-Af 97, BUN/Creatinine Ratio 10.7, Glucose 92, Calcium 7.7 Physical Exam Narrative She is alert and oriented x 3. She is in no acute distress. Abdomen is soft and appropriately tender. Abdominal binder in place Assessment & Plan Assessment/Plan (1) Acute appendicitis: PLAN: Plan The patient is a 70-year-old female status post a laparoscopic appendectomy. She is doing well postoperatively except for oxygen requirements. We have encouraged her to be up and ambulate. I showed her how to use the incentive spirometry and encouraged this at least 10 times per hour. Will have her evaluated for possible home oxygen Still anticipate possible discharge later today if home O2 can be arranged
[2025-08-28] MEDS: Albuterol 2.5 MG/3 ML VIAL.NEB. INHALATION ×2 (13:13→20:03)
[2025-08-28] MEDS: Budesonide Respules 0.5 MG/2 ML AMPUL.NEB. INHALATION ×2 (13:13→20:03)
--- NOTE | 2025-08-28 15:12 | CASEMGMT ---
ELDER CM in to discuss LAYNE form with patient. RN CM explained LAYNE form, patient voiced understanding. Pt signed form and filed in chart. Pt provided with a copy of signed LAYNE form. Patient had no further questions or concerns at this time.
--- NOTE | 2025-08-28 15:13 | CASEMGMT ---
ELDER SAN into pt room to discuss O2 needs. Pt sitting up in chair in no distress. RN CM provided list of local DME providers, Pt chose [facility] for O2 needs. Pt denies any additional questions or concerns at this time. RN JASWINDER completed DC readiness checklist and put O2 form in front of pt chart.
[2025-08-29] VITALS (8 sets, daily range): BP systolic 101–122; BP diastolic 64–72; PULSE 78–95; RESP 16–20; TEMP 36.5–37.2; O2SAT 89–98
[2025-08-29] MEDS: Piperacil/Tazobactam 3.375 GM in 0.9% Normal Saline (50mL MB+) 50 ML IV (05:47)
[2025-08-29] MEDS: Budesonide Respules 0.5 MG/2 ML AMPUL.NEB. INHALATION (07:09)
[2025-08-29] MEDS: Albuterol 2.5 MG/3 ML VIAL.NEB. INHALATION ×2 (07:09→13:13)
[2025-08-29 07:42] LABS: Hematocrit 34.4 % (37-47); Hemoglobin 11.4 g/dL (12.0-15.0); Immature Granulocytes Count 0.030 X10^3/uL (0.0-0.0); Mean Corp Hgb Conc 33.1 g/dL (32-36); Mean Corpuscular Volume 102.1 fL (81-99); Mean Platelet Vol. 9.2 fl (6.2-12.0); NRBC Flagged by Analyzer 0 % (0-5); Platelet Count 211 K/mm3 (150-450); RBC Distribution Width CV 12.5 % (11.6-14.6); RBC Distribution Width SD 46.9 fl (35.1-43.9); Red Blood Count 3.37 M/mm3 (4.2-5.4); White Blood Count 6.5 K/mm3 (4.4-11.0)
[2025-08-29] MEDS: 0.9% Saline Lock 10 ML Syringe IV (11:47)
--- NOTE | 2025-08-29 12:37 | DS.PCM_ITS ---
Providers Date of Admission: 08/27/25 Date of Discharge: 08/29/25 Primary Care Physician: Dr. Rito Chew MD Reason For Visit: ACUTE APPENDICITIS Diagnosis Discharge Diagnosis (1) Acute appendicitis: Status: Acute Code(s): K35.80 - Unspecified acute appendicitis Plan The patient is a 70-year-old female status post a laparoscopic appendectomy. She is doing well postoperatively except for oxygen requirements. We have encouraged her to be up and ambulate. I showed her how to use the incentive spirometry and encouraged this at least 10 times per hour. discharge today Medications at Discharge Home Medications ascorbic acid (vitamin C) 500 mg tablet,extended release 1,000 mg PO DAILY supplement 06/26/18 biotin 5,000 mcg sublingual tablet 5,000 mcg sublingual DAILY supplement 02/23/21 cyanocobalamin (vitamin B-12) 2,500 mcg tablet 2,500 mcg PO DAILY supplement 04/27/21 acyclovir 400 mg tablet 400 mg PO BID female issue 04/16/22 calcium carbonate (Calcium 600) 600 mg PO BID bones 06/01/23 amlodipine 2.5 mg tablet (Norvasc) 2.5 mg PO DAILY Blood pressure 01/01/24 trazodone 150 mg tablet 200 mg PO QHS 07/21/24 montelukast 10 mg tablet 10 mg PO QPM breathing #90 tabs 10/19/24 omeprazole 40 mg capsule,delayed release 40 mg PO DAILY acid reflux #90 caps 12/17/24 albuterol sulfate 90 mcg/actuation aerosol inhaler (ProAir HFA) 2 puff inhalation Q6H PRN shortness of breath or wheezing #3 ea 02/09/25 folic acid 400 mcg tablet 0.4 mg PO QDAY 06/08/25 budesonide-formoterol HFA 160 mcg-4.5 mcg/actuation aerosol inhaler (Breyna) 2 inh inhalation BID #3 ea 08/03/25 quetiapine 50 mg tablet 50 mg PO QHS 08/27/25 oxycodone 5 mg tablet 5 mg PO Q8H PRN pain 3 days #12 tabs 08/29/25 Hospital Course Operations appendectomy Summary of Care Provided Minutes Spent on Discharge: 15 Hospital Course: The patient is a 70-year-old female who presented to emergency department with abdominal pain. Workup in the ER revealed appendicitis. A laparoscopic appendectomy was recommended and performed. She tolerated the surgery well. She was admitted postoperatively. Patient did have a history of COPD and asthma and did require oxygen by nasal cannula. This required about a day to wean. This morning, she is tolerating diet and is off of oxygen. She is hopeful for discharge later today Physical Exam Const Constitutional Narrative: She is alert and oriented x 3. She is in no acute distress. Incisions are clean dry and intact. Abdomen is soft and appropriately tender. Weight / BMI Weight Weight: 88 lb 6.4 oz Body Mass Index (BMI) 19.1 ABG / Lab / Microbiology Data 08/29/25 06:12 08/28/25 05:22 Laboratory: Laboratory Results - last 24 hr 08/29/25 06:12: WBC 6.5, RBC 3.37 L, Hgb 11.4 L, Hct 34.4 L, MCV 102.1 H, MCH 33.8 H, MCHC 33.1, RDW Std Deviation 46.9 H, RDW Coeff of Jordon 12.5, Plt Count 211, MPV 9.2, Immature Gran % (Auto) 0.500, Neut % (Auto) 60.8, Lymph % (Auto) 22.1, [place]ts % (Auto) 12.4 H, Eos % (Auto) 3.7, Baso % (Auto) 0.5, Absolute Neuts (auto) 4.0, Absolute Lymphs (auto) 1.44, Nucleated RBC % 0 D/C Instructions Discharge Activity: Return to Normal Activity and May Shower May shower in (days): 0 Lifting Restrictions: No lifting pushing or pulling more than 20 pounds for 4 weeks Call your doctor if your incision/area has: Continuous Slow Oozing, Sudden Increased Bleeding, Increased Pain/ Swelling, Increased Redness, Foul Smelling Discharge and Swelling at the incision site Call your doctor if you observe: Fever of 101 or Higher Cleanse incision/area with: Soap & Water DC O2, CPAP, BIPAP Needs Home O2 Discharge instructions: No DC home with Oxygen: No Please Follow Up With: Cruz Baeza MD When: 2 weeks. Please call office to schedule appointment Meaningful Use Info Meaningful Use Meaningful Use Diagnoses (Choose all that apply): None applicable Discharge Plan Admission Admit Date/Time: 08/27/25 11:15 Primary Reason for Your Visit: Appendicitis Attending Provider: Cruz Baeza Primary Care Provider: Rito Chew Discharge Orders/Prescriptions Prescriptions: New oxycodone 5 mg tablet 5 mg PO Q8H PRN (Reason: pain) 3 Days Qty: 12 0RF Continued cyanocobalamin (vitamin B-12) 2,500 mcg tablet 2,500 mcg PO DAILY amlodipine [Norvasc] 2.5 mg tablet 2.5 mg PO DAILY acyclovir 400 mg tablet 400 mg PO BID trazodone 150 mg tablet 200 mg PO QHS omeprazole 40 mg capsule,delayed release(DR/EC) 40 mg PO DAILY Qty: 90 1RF folic acid 400 mcg tablet 0.4 mg PO QDAY ascorbic acid (vitamin C) 500 MG tablet extended release 1,000 mg PO DAILY biotin 5,000 mcg Tablet, Sublingual 5,000 mcg SUBLINGUAL DAILY calcium carbonate [Calcium 600] 600 mg calcium (1,500 mg) tablet 600 mg PO BID quetiapine 50 mg tablet 50 mg PO QHS montelukast 10 mg tablet 10 mg PO QPM Qty: 90 3RF albuterol sulfate [ProAir HFA] 90 mcg/actuation HFA aerosol inhaler 2 puff INHALATION Q6H PRN (Reason: shortness of breath or wheezing) Qty: 3 3RF budesonide-formoterol [Breyna] 160-4.5 mcg/actuation HFA aerosol inhaler 2 inh inhalation BID Qty: 3 3RF Referrals / Follow Up: Rito Chew MD [Primary Care Provider, Family Practice] Disposition Disposition (needs filled in before D/C Order can be placed): Home, Self Care
== END 2025-08-29 13:56 | disposition home or self-care (01) ==
LOC: ED 11:14 → MS3 11:26
PROVIDERS: Admitting Provider Surgery; Emergency Provider Emergency Medicine; PCP Family Medicine; Visit Provider Surgery
PROC: 0DTJ4ZZ Resection of Appendix, Percutaneous Endoscopic Approach (ICD-10-PCS; CPT 44970; principal; 2025-08-27 15:40)
DX: K35.32 Acute appendicitis with perforation, localized peritonitis, and gangrene, without abscess (principal); J43.9 Emphysema, unspecified; Z79.899 Other long term (current) drug therapy; F17.210 Nicotine dependence, cigarettes, uncomplicated; I10 Essential (primary) hypertension; K21.9 Gastro-esophageal reflux disease without esophagitis; R91.8 Other nonspecific abnormal finding of lung field; F10.10 Alcohol abuse, uncomplicated
CPT/HCPCS: 44970; 00840; 36415; 74177; 80048; 80053; 81001; 83690; 85025; 88304; 88341; 88342; 94640; 94668; 96361; 96365; 96366; 96375; 96376; 99221; 99284; Q9967; A4216; G0378; J2405